=== PATIENT | male | born 1950 | race Caucasian/White ===

== ENCOUNTER 2022-03-16 10:30 | Emergency (ER) | payer MEDICARE, BC, SELFPAY ==
[2022-03-16 10:34] VITALS: BP 132/68; PULSE 70; RESP 18; TEMP 36.1; O2SAT 99; BMI 28.1
--- NOTE | 2022-03-16 11:34 | CRLHL7_ITS ---
For Patients: As a result of the Cures Act, medical imaging exams and procedure reports are released immediately into your electronic medical record. You may view this report before your referring provider. If you have questions, please contact your health care provider. INDICATION: Back pain TECHNIQUE: 2-view lumbar spine. COMPARISON: none FINDINGS: Degenerative facet arthropathy lower lumbar spine with mild degenerative retrolisthesis of L3 on L4. No compression fracture. Multilevel discogenic spurring. Vascular calcifications with arterial stents. IMPRESSION: No acute fracture. Degenerative disc disease and facet degeneration at multiple levels. Dictated by Rudy Birmingham MD @ 03/16/2022 1:39:15 PM (Electronically Signed)
--- NOTE | 2022-03-16 11:34 | ED.GENADULT ---
HPI - General Adult General Chief complaint: Back Injury/Pain Stated complaint: Hip and back pain Time Seen by Provider: 03/16/22 11:04 Source: patient Mode of arrival: ambulatory Limitations: no limitations History of Present Illness HPI narrative: 72-year-old male coming in today complaining about back pain. Pain is located in the right lower back radiates around the hip and down the front of the leg to the knee. Pain does not go into the groin. He denies any knee pain. He states the pain is been present for about a week. He denies any strenuous physical activity that brought it on. He can not remember exactly what he was doing when the pain started. He states that last night the pain got significantly worse and is almost unbearable this morning. He denies any urinary difficulty or dysuria. He denies any fevers or chills. He denies pain in other joints. He denies swelling or changes in his skin in the area. He denies neurologic deficits. Patient does take oxycodone, , duloxetine daily for pain and neuropathy. Did take a dose this morning, the oxycodone has not been helping his pain. Nothing really seems to make it better or worse. Sometimes he will be sitting and be comfortable and then the pain comes and he has to walk around. This may relieve the pain temporarily however after walking around for some time then the pain returns. Related Data Home Medications Medication Instructions Recorded Confirmed amlodipine 10 mg tablet 10 mg PO QDAY 11/18/21 01/14/22 aspirin 325 mg tablet 325 mg PO QDAY 11/18/21 01/14/22 atorvastatin 20 mg tablet 20 mg PO .hs 11/18/21 01/14/22 nortriptyline 50 mg capsule 100 mg PO QDAY 11/18/21 01/14/22 omeprazole 40 mg capsule,delayed 40 mg PO QDAY 11/18/21 01/14/22 release sodium bicarbonate 650 mg tablet 650 mg PO BID 11/18/21 01/14/22 duloxetine 60 mg capsule,delayed 60 mg PO DAILY 12/09/21 01/14/22 release ferrous gluconate 225 mg (27 mg 225 mg PO QDAY 12/09/21 01/14/22 iron) tablet (Fergon) lancing device with lancets kit 12/09/21 01/14/22 (Accu-Chek FastClix Lancing Device kit) carvedilol 25 mg tablet 37.5 mg PO DAILY 12/10/21 01/14/22 fluoxetine 60 mg tablet 90 mg PO QDAY 12/10/21 01/14/22 Previous Rx's Medication Instructions Recorded blood-glucose sensor (Dexcom G6 #3 ea 11/25/21 Sensor device) insulin aspart U-100 100 unit/mL 80 unit (0.8 mL) subcut 12/28/21 subcutaneous solution (Novolog USEASDIRECTD #90 mL U-100 Insulin aspart) doxepin 25 mg capsule 25 mg PO BID #60 caps 01/14/22 minocycline 100 mg capsule 100 mg PO BID #90 caps 01/14/22 pramipexole 1 mg tablet 1 mg PO .hs #30 tabs 01/14/22 lisinopril 40 mg tablet 40 mg PO QDAY #90 tabs 01/19/22 oxycodone 5 mg tablet 5 - 10 mg PO Q6H PRN pain #100 tabs 01/28/22 blood-glucose transmitter (Dexcom #1 ea 02/12/22 G6 Transmitter device) methylprednisolone 4 mg tablets in See Rx Instructions PO .COMPLEX 03/16/22 a dose pack (Medrol (Dayo)) #21 ea Allergies Allergy/AdvReac Type Severity Reaction Status Date / Time morphine Allergy Severe itching Verified 01/14/22 10:49 and swelling pregabalin Allergy Severe itching Verified 01/14/22 10:49 and swelling Eacmzpb-IMZ-HjL Reductase Allergy Unknown Verified 01/14/22 10:49 Inhibitor Review of Systems Status of ROS: Reports: 10 or more systems reviewed and unremarkable except as noted in History and below [facility] Medical History Abscess of skin Chronic pain Chronic pruritus Diabetic foot ulcer Diabetic gastroparesis (04/20/09) Diabetic neuropathy Erectile dysfunction (04/23/06) Gastroesophageal reflux disease Gout Hyperlipidemia Hypertension Major depressive disorder with single episode (09/18/07) Peripheral arterial disease Restless legs syndrome Spinal stenosis of lumbar region Stage 3 chronic kidney disease Transient ischemic attack (2009) Type 2 diabetes mellitus Vitamin D deficiency Surgical History History of amputation of left great toe (05/31/17) History of angioplasty of peripheral vessel (05/27/17) History of carpal tunnel release History of repair of right rotator cuff (2004) History of tonsillectomy Status post cataract extraction and insertion of intraocular lens (2007) Status post epidural steroid injection (07/06/18) Status post insertion of iliac artery stent Family History Sister Breast cancer, Onset Age: 70 Diabetes Brother Diabetes Stroke, Onset Age: 69 Heart disease, Onset Age: 69 Social History Narrative: -Siria, retired, 4 kids Former smoker No EtOH Smoking Status: Current every day smoker How often do you have a drink containing alcohol: never AUDIT-C Alcohol total score: 0 Non-prescribed substance use: denies use Exam Narrative: Exam Narrative: Well-nourished well-developed patient in no acute distress. Alert and oriented. Answers questions appropriately. Mood and affect are appropriate. Thoughts are goal oriented and rational. No tangential or magical thinking noted. Patient speaks in full sentences without needing to catch their breath. HEENT: Normocephalic atraumatic. Pupils are equally round reactive to light. Extraocular muscles are intact. Conjunctivae are moist without any icterus noted. Moist mucous membranes. Posterior pharynx is normal. Neck is soft without any lymphadenopathy or thyromegaly. No masses are appreciated. Lungs: Clear to auscultation bilaterally no wheezes rhonchi or rales are appreciated. Patient takes deep breaths without any discomfort. Abdomen: Soft and nontender nondistended with normal bowel sounds. No CVA tenderness. Extremities: Bilateral lower extremities are without edema. Normal DP and PT pulses. Back: Normal appearance. He has no tenderness to palpation over the thoracic or lumbar spine. He has tenderness over the right-sided paraspinal musculature. He has no neurologic deficits noted of the bilateral lower extremities. His gait is normal. Strength is 5/5 of the lower extremities. He has no footdrop noted. He has no pain over the lateral hip or the anterior thigh. Const: Vital Signs, click to edit/add: Vital Signs - 24 hr 03/16/22 10:34 03/16/22 12:56 Temperature 96.9 F L Pulse Rate [Pulse Oximeter] 70 68 Respiratory Rate 18 16 Blood Pressure [Ri ght Upper Arm] 132/68 155/75 H Pulse Oximetry 99 96 Oxygen Delivery Me thod Room Air Room Air Course Course Hospital Course: Lumbar spine x-ray, read by me, does not show any significant or acute findings. His lab work did show slightly elevated white blood cell count, anemia which is chronic, elevated creatinine which is chronic. Today his creatinine was slightly above his baseline. Urinalysis had 2+ protein but no signs of infection. Vital Signs Vital signs: Initial Vital Signs Temperature 96.9 F L 03/16/22 10:34 Temperature Source Temporal Artery Scan 03/16/22 10:34 Pulse Rate 70 03/16/22 10:34 Respiratory Rate 18 03/16/22 10:34 Blood Pressure 132/68 03/16/22 10:34 Blood Pressure Mean 89 03/16/22 10:34 Blood Pressure Position Supine 03/16/22 10:34 Pulse Oximetry 99 03/16/22 10:34 Oxygen Delivery Method 03/16/22 10:34 Vital Signs Temperature 96.9 F L 03/16/22 10:34 Pulse Rate 70 03/16/22 10:34 Respiratory Rate 18 03/16/22 10:34 Blood Pressure 132/68 03/16/22 10:34 Pulse Oximetry 99 03/16/22 10:34 Oxygen Delivery Method 03/16/22 10:34 Temperature 96.9 F L 03/16/22 10:34 Pulse Rate 68 03/16/22 12:56 Respiratory Rate 16 03/16/22 12:56 Blood Pressure 155/75 H 03/16/22 12:56 Pulse Oximetry 96 03/16/22 12:56 Oxygen Delivery Method 03/16/22 12:56 Medical Decision Making [facility] Narrative Medical decision making narrative: 72-year-old male complex medical history presenting with right-sided lumbar back pain that radiates down the anterior leg. At this point we are going to put the patient on a Medrol Dosepak. We discussed that I would not be giving him more narcotic pain medication at this time given the fact that is in to helping in many ways. 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 We discussed reasons to return to the ER. Patient was agreeable had no other questions. Medical Records Medical records reviewed: Yes I reviewed the patient's medical records Lab Data Lab results reviewed: Yes I reviewed the patient's lab results Labs: Lab Results 03/16/22 03/16/22 03/16/22 Range/Units 11:40 11:40 12:11 WBC 13.57 H (4.50-11.00) K/uL RBC 3.46 L (4.30-5.90) m/uL Hgb 10.9 L (13.5-17.5) gm/dL Hct 33.4 L (37.0-53.0) % MCV 97 (80-100) fL MCH 32 (26-34) pg MCHC 33 (32-36) gm/dL RDW Coeff of Amirah 14.2 (11.5-15.5) % Plt Count 259 (140-440) K/uL Neut % (Auto) 67.9 (42.0-72.0) % Lymph % (Auto) 15.1 L (20-44) % [place] % (Auto) 9.1 (0.0-11.0) % Eos % (Auto) 7.0 (0.0-7.0) % Baso % (Auto) 0.2 (0.0-3.0) % Neut # (Auto) 9.20 H (1.7-7.0) K/uL Lymph # (Auto) 2.00 (0.90-2.90) K/uL [place] # (Auto) 1.20 H (0.00-0.90) K/UL Eos # (Auto) 0.90 H (0.00-0.50) K/uL Baso # (Auto) 0.00 (0.00-0.30) K/uL Abs Immat Gran (auto) 0.10 (0.00-0.30) K/uL Sodium 139 (135-149) mmol/L Potassium 4.3 (3.6-5.1) mmol/L Chloride 105 (96-114) mmol/L Carbon Dioxide 22 (20-32) mmol/L BUN 59 H (7-30) mg/dL Creatinine 3.4 H (0.5-1.5) mg/dL Estimated Creat Clear 20.22 Estimated GFR 19 ml/min Glucose 71 (60-115) mg/dL Calcium 7.8 L (8.4-10.6) mg/dL Total Bilirubin 0.4 (0.1-1.5) mg/dL Direct Bilirubin 0.3 (0.0-0.5) mg/dL AST 24 (12-35) U/L ALT 20 (4-50) U/L Alkaline Phosphatase 92 (40-150) U/L C-Reactive Protein 1.1 H (0.5-1.0) mg/dL Total Protein 7.5 (6.0-8.3) g/dL Albumin 4.3 (3.3-5.0) g/dL Urine Color Yellow (Yellow) Urine Appearance Clear (Clear) Urine pH 5.5 (5.0-8.5) Ur Specific Opal 1.020 (1.000-1.030) Urine Protein 2+ A (Negative) Urine Glucose (UA) Negative (Negative) Urine Ketones Negative (Negative) Urine Blood Negative (Negative) Urine Nitrite Negative (Negative) Urine Bilirubin Negative (Negative) Urine Urobilinogen 0.2 (0.2-1.0) Ur Leukocyte Esterase Negative (Negative) Urine RBC 0-2 (0-2) Urine WBC 0-2 (0-5) Ur Squamous Epith Cells Few (None-Few) Urine Bacteria None (None) Imaging Data X-ray lumbar spine: Attestation: I have reviewed the pertinent imaging results. My impression: No acute findings, chronic changes present Discharge Plan Discharge Clinical Impression: Lumbar back pain with radiculopathy affecting lower extremity Patient Disposition: Home, Self-Care Condition: Stable Additional Instructions: Take steroids as instructed. Make sure to pay extra close attention this week to your blood glucose levels as steroids can make your glucose levels rise. Follow-up with your primary care as scheduled tomorrow. Return to the ER if you develop a fever, worsening pain, or any neurologic deficits. Prescriptions: New methylprednisolone [Medrol (Dayo)] 4 mg tablets,dose pack See Rx Instructions .ROUTE .COMPLEX Qty: 21 0RF Rx Instructions: orally per package directions No Action pramipexole 1 mg tablet 1 mg PO .hs Qty: 30 5RF minocycline 100 mg capsule 100 mg PO BID Qty: 90 1RF Rx Instructions: 1 BID x 10 days then 1 QD detention doxepin 25 mg capsule 25 mg PO BID Qty: 60 5RF Fergon 225 mg (27 mg iron) tablet 225 mg PO QDAY (DME) lancing device with lancets [Accu-Chek FastClix Lancing Dev] Kit See Rx Instructions .Route Rx Instructions: As directed duloxetine 60 mg capsule,delayed release(DR/EC) 60 mg PO DAILY atorvastatin 20 mg tablet 20 mg PO .hs nortriptyline 50 mg capsule 100 mg PO QDAY omeprazole 40 mg capsule,delayed release(DR/EC) 40 mg PO QDAY sodium bicarbonate 650 mg tablet 650 mg PO BID amlodipine 10 mg tablet 10 mg PO QDAY aspirin 325 mg tablet 325 mg PO QDAY (DME) Dexcom G6 Sensor Device See Rx Instructions .Route Qty: 3 2RF Rx Instructions: Change every 10 days carvedilol 25 mg tablet 37.5 mg PO DAILY Rx Instructions: must administer with a meal/food fluoxetine 60 mg tablet 90 mg PO QDAY insulin aspart U-100 [Novolog U-100 Insulin aspart] 100 unit/mL solution 80 unit subcut USEASDIRECTD Qty: 90 3RF Rx Instructions: 80 units daily per insulin pump lisinopril 40 mg tablet 40 mg PO QDAY Qty: 90 1RF oxycodone 5 mg tablet 5 - 10 mg PO Q6H PRN (Reason: pain) Qty: 100 0RF (DME) Dexcom G6 Transmitter Device See Rx Instructions .Route Qty: 1 5RF Rx Instructions: As directed Follow Up/Referrals: Rudy Riddle MD [Primary Care Provider] - Stand Alone Forms: MyHealth Info Instructions
[2022-03-16 11:49] LABS: Basophils Percent Auto 0.2 % (0.0-3.0); Hematocrit 33.4 % (37.0-53.0); Hemoglobin* 10.9 gm/dL (13.5-17.5); Lymphocytes Percent Auto 15.1 % (20-44); Mean Corpuscular HGB Conc 33 gm/dL (32-36); Mean Corpuscular Hemoglobin 32 pg (26-34); Mean Corpuscular Volume 97 fL (80-100); Monocytes Percent Auto 9.1 % (0.0-11.0); Neutrophils Percent Auto 67.9 % (42.0-72.0); Platelet Count* 259 K/uL (140-440); RDW Coefficient of Variation % 14.2 % (11.5-15.5); Red Blood Count 3.46 m/uL (4.30-5.90); White Blood Count* 13.57 K/uL (4.50-11.00)
[2022-03-16 11:58] LABS: Slide Review Reflex No
[2022-03-16 12:11] LABS: Appearance Urine Clear (Clear); Bilirubin Urine Negative (Negative); Blood Urine Negative (Negative); Color Urine Yellow (Yellow); Glucose Urine Negative (Negative); Ketones Urine Negative (Negative); Leukocyte Esterase Urine Negative (Negative); Nitrite Urine Negative (Negative); Protein Urine 2+ (Negative); Urobilinogen Urine 0.2 (0.2-1.0); pH Urine 5.5 (5.0-8.5)
--- OUTSIDE RECORDS SUMMARY | 2022-03-16 12:18 | XMS_ITS | Clinical Summary ---
:1950 Author Organization [facility] [employer] [facility] [place] [address] Care Team Providers Name Role Phone Casa Lucia MD Unavailable Unavailable Pcp, No Primary Care Provider Unavailable Allergies Active Allergy Reactions Severity Noted Date Comments Morphine Itching 02/04/2010 After 3 days of use Jrpshgu-Dtz-Avh Reductase Myalgia 02/13/2014 Inhibitors Medications Medication Sig Dispensed Refills Start Date End Date Status ASPIRIN 325 MG TAB QD 0 A ctive lancets Dispense item 550 Each 3 08/23/2014 Activ e covered by pt ins. 250.02 IDDM type II Tests 4 times/day. Reason: High A1c. History labile sugars, hypertension, poor control pen needle, diabetic Three times a day 300 Each 3 06/27/2015 Active (BD INSULIN PEN NEEDLE UF) 31 gauge x 5/16Indications: Type 2 diabetes mellitus without complication (HC) insulin lispro Inject 5-10 Units 5 pen 12 07/22/2015 Active (HUMALOG KWIKPEN) 100 subcutaneous 3 unit/mL inpn times daily before penIndications: Type 2 meals. diabetes mellitus with diabetic polyneuropathy (HC) ACCU-CHEK XIAO PLUS TESTS 4-6 TIMES 600 Each 3 09/10/2015 Active TEST STRP PER DAY stripIndications: Type 2 diabetes mellitus with diabetic polyneuropathy (HC) omeprazole (PRILOSEC) Take 1 capsule by 90 capsule 2 6 Active 20 mg Delayed-Release mouth once daily capsuleIndications: before a meal. Gastroesophageal reflux disease without esophagitis colchicine (COLCRYS, Take 1 tablet by 90 tablet 3 02/16/2016 Active COLCHICINE,) 0.6 mg mouth once daily. tabletIndications: Acute gout, unspecified cause, unspecified site insulin glargine Inject 30 Units 30 mL 5 02/16/2016 Active (LANTUS SOLOSTAR) 100 subcutaneous unit/mL (3 mL) before bedtime. solution for injectionIndications: Type 2 diabetes mellitus with neurological manifestations (HC) atorvastatin (LIPITOR) Take 20 mg by 0 10/16/2019 Active 20 mg tablet mouth at bedtime. cloNIDine HCL Take 0.1 mg by 0 10/17/2019 Active (CATAPRES) 0.1 mg mouth 2 times tablet daily. doxepin (SINEQUAN) 10 Take 10 mg by 0 10/01/2019 Active mg capsule mouth at bedtime. DULoxetine (CYMBALTA) Take 60 mg by 0 10/22/2019 Active 60 mg Delayed-release mouth once daily. capsule VITAMIN D2 1,250 mcg Take 50,000 Units 0 09/27/2019 Active (50,000 unit) capsule by mouth once weekly. lisinopriL (PRINIVIL; Take 40 mg by 0 10/22/2019 Active ZESTRIL) 40 mg tablet mouth once daily. nortriptyline 50 mg TAKE TWO CAPSULES 0 10/16/2019 Active capsule BY MOUTH AT BEDTIME pramipexole (MIRAPEX) Take 0.5 mg by 0 10/17/2019 Active 0.5 mg tablet mouth at bedtime. cyclobenzaprine TAKE ONE TABLET BY 0 12/13/2019 Active (FLEXERIL) 10 mg MOUTH TWICE A DAY tablet NEEDED FOR SPASM Active Problems Problem Noted Date Controlled substance agreement terminated 11/26/2016 Overview: Patient termed from the clinic 04/30 Hypertension 08/31/2015 Hyperlipidemia 08/31/2015 Type 2 diabetes mellitus with diabetic polyneuropathy 02/25/2015 Restless legs syndrome (RLS) 02/02/2012 Issue of repeat prescriptions 12/16/2010 Overview: Diabetic Neuropathy - taking Oxycontin a nd Percocet TIA (transient ischemic attack) 03/01/2010 CKD (chronic kidney disease) stage 3, GFR 30-59 ml/min 08/17/2009 Diabetic gastroparesis 04/20/2009 GERD (gastroesophageal reflux disease) 04/20/2009 Major depressive disorder, single episode, in partial or unspecified 09/18/2007 remission Diabetic Neuropathy 04/23/2006 Proteinuria 04/23/2006 Erectile Dysfunction 04/23/2006 GOUT 04/23/2006 Resolved Problems Problem Noted Date Resolved Date Controlled substance agreement signed 5-27-14 ERX 06/21/2014 11/26/2016 Diabetic Neuropathy 01/25/2011 05/27/2011 Diabetic gastroparesis 01/21/2010 01/22/2010 Diabetic gastroparesis 01/21/2010 05/27/2011 Unspecified essential hypertension 04/23/200608/30 Other and unspecified hyperlipidemia 04/23/2006 Depressive disorder, not elsewhere classified 04/23/2006 09/18/2007 Type 2 Diabetes A1C< 8 05/16/1990 02/25/2015 Immunizations Name Administration Dates Next Due Influenza, IIV3 (Age >=3 years) 05/10/2013, 02/02/2012, 05/16, 02/13/2010, 03/13/2008, 03/03/2007, 04/04/2006 Influenza, IIV4 02/16/2016, 03/17/2015, 02/13/2014 Pneumococcal Poly,23-Valent 02/13/2010 (Pneumovax) Td (Age >=7 Years) 05/16/1996 Td, Preservative Free (age >= 7 03/24/2007 Years) Zoster (Zostavax-ZVL, live) 02/02/2012 Family History Medical History Relation Name Comments Diabetes Brother Diabetes Father Thyroid Disease Mother hypothyroidism Thyroid Disease Sister 1 hypothyroidism Diabetes Sister 2 Relation Name Status Comments Brother Father (Age 74) Mother Sister 1 Sister 2 Social History Tobacco Use Types Packs/Day Years Used Date Current Every Day Smoker Cigarettes 0.5 Smokeless Tobacco: Never Used Tobacco Cessation: Ready to Quit: No; Co unseling Given: Yes Comments: started again after hospitiliz ation 10/2019 Alcohol Use Standard Drinks/Week Comments No 0 (1 standard drink = 0.6 oz pure alcoho l) Sex Assigned at Date Recorded Not on file Obstetrics History Last Filed Vital Signs Vital Sign Reading Time Taken Comments Blood Pressure 120/50 03/17/2021 10:15 AM CDT manual c uff Pulse 70 03/17/2021 10:15 AM CDT Temperature 36.7 ??C (98.1 ??F) 05/07/2020 8:29 PM RECRUITING ADMINISTRATOR Respiratory Rate 20 05/08/2020 12:26 AM RECRUITING ADMINISTRATOR Oxygen Saturation 96% 03/17/2021 10:15 AM CDT Inhaled Oxygen Concentration - - Weight 83.9 kg (185 lb) 03/17/2021 10:15 AM CDT Height 175.3 cm (5' 9.02) 05/07/2020 8:29 PM RECRUITING ADMINISTRATOR Body Mass Index 27.31 05/07/2020 8:29 PM RECRUITING ADMINISTRATOR Plan of Treatment Health Maintenance Due Date Last Done Comments Tdap 01/30/1963 Hepatitis C screening for age 0901/30/1970 18-79 AAA screening age 55-77 01/30/2007 Pneumococcal series for age 65+ (2 02/13/2011 02/13/2010 - PCV) Zoster (shingles) series for age 1103/29/2012 02/02/2012 50+ (2 of 3) Colonoscopy through age 75 02/05/2016 02/04/2006 (Completed outside of Causes) Medicare Wellness for age 65+ 01/30/2017 BMI (ht and wt on same day) for 02/15/2017 02/16/2016, 12/2015 age 18+ Depression screening for age 12+ 02/23/2017 02/24/2016, 07/2015, 08/19/2015, Additional history exists Tetanus booster 03/24/2017 03/24/2007, 05/16/1996 COVID-19 vaccine series (3 - 10/04/2020 08/09/2020, 021 Booster for Pfizer series) Lipids for age 45-75 02/15/2021 02/16/2016, 09/10/2014, 10/09/2013, Additional history exists Influenza for age 65+ 01/14/2022 02/16/2016, 03/17/2015, 02/13/2014, Additional history exists Goals Goal Patient Goal Associated Recent Patient-Stated? Author Type Problems Progress BLOOD PRESSURE Blood Pressure No Fanta re, - MAINTAINS BP Rudy less than MD Venkata 140/90 Results Not on filefrom Last 3 Months Insurance Payer Benefit Plan / Subscriber ID Effective Phone Address T ype Group Dates WC WORKERS [id number] [id number] Effective for [phone] [id number] COMP COMP all dates [address] [place] [address] [id number] [id number] 2008-Pres [phone] [address] COMP COMP ent [address] [place] [address] MEDICARE PART MEDICARE PART [id number] 2019-Prese ATT N: CLAIMS B - HB USE B HB ONLY nt [address] [place] [address] [employer] [place] [employer] [id number] 2019-Prese [address] [address] [place], [place] [id number] [employer] Comp Self 1950 [id number] [phone] Oracio HERNANDEZ (Work) [id number] [employer] Self 1950 [id number] [phone] Oracio HERNANDEZ (Work) [id number] Care 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 Casa Lucia MD Ophthalmology Ophthalmology Surgery 12/22/[address] [place] [address]
--- OUTSIDE RECORDS SUMMARY | 2022-03-16 12:19 | XMS_ITS | Encounter Summary ---
:1950 Author Organization [facility] Address [address] [place] [address] Care Team Providers Name Role Phone Elsewhere, Pcp Primary Care Provider Unavailable Reason for Referral Outpatient (Routine) - Closed Specialty Diagnoses / Procedures Referred By Contact Refer red To Contact Diagnoses Follow Up Examination Status Post Surgery Jayjay Pak P.A.-C. [facility] Procedures Lower Extremity Arterial (MIMI) - Exercise (Claudication) [address] [place], [place] [address] Referral ID Status Reason Start Date Expiration Date Visits Requ ested Visits Authorized [id number] Closed 10/23/2021 10/23/2022 1 1 Reason for Visit Outpatient (Routine) - Closed Specialty Diagnoses / Procedures Referred By Contact Refer red To Contact Diagnoses Follow Up Examination Status Post Surgery Jayjay Pak P.A.-C. [facility] Procedures Lower Extremity Arterial (MIMI) - Exercise (Claudication) [address] [place], [place] [address] Referral ID Status Reason Start Date Expiration Date Visits Requ ested Visits Authorized [id number] Closed 10/23/2021 10/23/2022 1 1 Encounter Details Date Type Department Care Team Description 02/23/2022 Hospital Encounter Department of Jayjay Pak Arterial Disease (HCC) (Primary Dx); Vascular Medicine in [place] [facility] Follow Up Examination Status Post Surger y [place], [place] [address] [facility] [address] [place] [phone] Social History Tobacco Use Types Packs/Day Years Used Date Smoking Tobacco: Every Day Cigarettes 1 35 S tarted: 05/16/1983 Smokeless Tobacco: Never Comments: has tried to quit many times, wishes no intervention at this time Alcohol Use Standard Drinks/Week Comments Yes 0 (1 standard drink = 0.6 oz pure alcoho l) yearly Alcohol Habits Answer Date Recorded How often do you have a drink containing alcohol? Monthly or less 03/25/2021 How many drinks containing alcohol do you have on a 1 or 2 03/25/2021 typical day when you are drinking? How often do you have six or more drinks on one Never 03/25/2021 occasion? Social Isolation Answer Date Recorded In a typical week, how many times do you talk on the phone T wice a week 03/25/2021 with family, friends, or neighbors? How often do you get together with friends or relatives? Onc e a week 03/25/2021 How often do you attend christian or episcopalian services? Never 03/25/2021 Do you belong to any clubs or organizations such as christian N o 03/25/2021 groups, unions, fraternal or athletic groups, or school groups? How often do you attend meetings of the clubs or Never 03/25/2021 organizations you belong to? Are you now , , , , never Mar ried 03/25/2021 or living with a partner? Physical Activity Answer Date Recorded On average, how many days per week do you engage in moderate to 0 days 03/25/2021 strenuous exercise (like walking fast, running, jogging, dancing, swimming, biking, or other activities that cause a light or heavy sweat)? On average, how many minutes do you engage in exercise at th is 0 min 03/25/2021 level? Stress Answer Date Recorded Do you feel stress - tense, restless, nervous, or anxious, N ot at all 03/25/2021 or unable to sleep at night because your mind is troubled all the time - these days? Financial Resource Strain Answer Date Recorded How hard is it for you to pay for the very basics like Somew hat hard 03/25/2021 food, housing, medical care, and heating? Food Insecurity Answer Date Recorded Within the past 12 months, you worried that your food would Never true 03/25/2021 run out before you got money to buy more. Within the past 12 months, the food you bought just didn't N ever true 03/25/2021 last and you didn't have money to get more. Transportation Needs Answer Date Recorded In the past 12 months, has lack of transportation kept you f rom No 03/25/2021 medical appointments or from getting medications? In the past 12 months, has lack of transportation kept you f rom No 03/25/2021 meetings, work, or getting things needed for daily living? Housing Stability Answer Date Recorded In the last 12 months, was there a time when you were not ab le No 03/25/2021 to pay the mortgage or rent on time? In the last 12 months, how many places have you lived? 1 03/25/2021 In the last 12 months, was there a time when you did not hav e a No 03/25/[address] or slept in a skilled nursing (including now)? Education Answer Date Recorded What is the highest level of school you have Some college, n o degree 03/24/2021 completed or the highest degree you have received? 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 8:13 PM [employer] documented as of this encounter Medications at Time of Discharge Medication Sig Dispensed Refills Start Date End Date acetaminophen (TYLENOL) Take 2 tablets 0 03/25/20 21 500 mg tablet (1,000 mg total) by mouth every 8 (eight) hours as needed (neuropathy). amLODIPine (NORVASC) 5 Take 1 tablet (5 mg 90 tablet 3 05/16 mg tablet total) by mouth daily. aspirin [address] tablet Take 325 mg by mouth 0 daily. Take in evening atorvastatin (LIPITOR) Take 1 tablet (20 mg 90 tablet 3 03/2020 20 mg tablet total) by mouth at bedtime. blood sugar diagnostic TEST 6 TIMES DAILY 0 06/16 (Accu-Chek Guide test DIRECTED strips) strips calcium citrate Take 4 tablets (800 300 tablet 3 06/16/2021 (CALCITRATE) 950 mg (200 mg of calcium total) mg calcium) tablet by mouth at bedtime. Increased to 4 pills at bedtime carvediloL (COREG) 25 mg Take 2 tablets (50 0 02/2021 tablet mg total) by mouth 2 (two) times a day with meals. colchicine (COLCRYS) 0.6 Take 1 tablet (0.6 0 mg tablet mg total) by mouth as directed. For gout flare, take one tab in the evenings until symptoms go away (usually 2-3 days) doxepin (SINEquan) 10 mg TAKE ONE CAPSULE BY 90 capsule 3 capsule MOUTH EVERY DAY AT BEDTIME DULoxetine (CYMBALTA) 60 Take 60 mg by mouth [address] capsule at bedtime. ferrous sulfate 325 mg Take 27 mg by mouth 0 (65 mg iron) tablet daily. States taking 27 mg daily furosemide (LASIX) 40 mg Take 1.5 tablets (60 135 tablet 3 0 09/28/2021 09/28/2022 tablet mg total) by mouth daily. insulin aspart U-100 Inject 8-15 Units 0 03/25/20 21 (NovoLOG Flexpen U-100 under the skin 3 Insulin) 100 unit/mL (3 (three) times a day mL) injection with meals. (sometimes takes more than 3 times per day depending on what he is eating and activity). insulin glargine Inject 35 Units 15 mL 0 03/25/2021 (Basaglar KwikPen U-100 under the skin every Insulin) 100 unit/mL (3 evening. mL) injection lancets 6 each daily. 600 each 3 03/07/2019 lisinopriL Take 0.5 tablets (20 0 03/25/2021 (PRINIVIL,ZESTRIL) 40 mg mg total) by mouth tablet daily. Patient reports it was decreased by primary physician about 04/2020 per patient report. minocycline TAKE ONE CAPSULE BY 0 01/14/2022 (MINOCIN,DYNACIN) 100 mg MOUTH TWICE A DAY capsule FOR 10 DAYS AND THEN TAKE ONE CAPSULE BY MOUTH EVERY DAY INTERMEDIATE nortriptyline (PAMELOR) Take 100 mg by mouth 5 50 mg capsule at bedtime. omeprazole (PriLOSEC) 40 Take 40 mg by mouth [address] capsule every evening. oxyCODONE (ROXICODONE) 5 Take 5-10 mg by 0 2021 mg immediate release mouth every 6 (six) tablet hours as needed. for pain pen needle, diabetic 31 Inject 1 Injection 400 each 3 04/17 gauge x 5/16 needle under the skin daily. Inject 1 injection under the skin 4 times daily pramipexole (MIRAPEX) Take 0.5 mg by mouth 0 0.5 mg tablet at bedtime. sodium bicarbonate 650 TAKE ONE TABLET BY 180 tablet 3 01/22 mg tablet MOUTH TWICE A DAY documented as of this encounter Plan of Treatment Not on filedocumented as of this encounter Procedures Procedure Name Priority Date/Time Associated Diagnosis Comme nts LOWER EXTREMITY Routine 02/23/2022 11:23 AM Follow Up Resul ts for this ARTERIAL (MIMI) - CDT Examination Status proce maeve are in EXERCISE Post Surgery the results (CLAUDICATION) section. documented in this encounter Results Lower Extremity Arterial (MIMI) - Exercise (Claudication) (02/23/2022 11:23 AM CDT) Anatomical Region Laterality Modality Other Specimen (Source) Anatomical Collection Method Collection Time Re ceived Time Location / / Volume Laterality 02/23/2022 10:23 AM CDT Narrative 02/23/2022 10:23 AM CDT Right: Doppler Waveforms: ? Normal at all levels evaluated. ?? Resting Index: ? MIMI (PT)- ??0 .91 ?MIMI (DP)- ??0.88 ?TBI - ??0.63 ?? Post-exercise MIMI: ? 0.41 ??Post-Exercise CF Doppler: ? Abnormal. ?? Left: Doppler Waveforms: ? Normal at all levels evaluated. ?? Resting Index: ? MIMI (PT)- ??0.85 ?MIMI (DP)- ??0.82 ?TBI- ??0.54 ?? Post- exercise MIMI: ? 0.43 ??Post-Exercise CF Doppler: ? Abnormal. ?? General: Patient exercised at reduced sp eed of 1.0 mph (10% grade) for 5 minutes (142 yards). ?? Standard protocol: ??2.0 mph (10% grade) for 5 minutes (283 yards). ??Onset of symptoms at 0'59 (25 yard s). ??Exercise terminated at completion of protocol. ?? Conclusions: Bilateral mild-moderate aor toiliac occlusive disease. EKG- negative for cardiac ischemia with exercise. Note- hypertensive response following low- level exercise. ??These results are similar to those noted on the study of 02/06/2021. ?? Procedure Note Edgar Yarbrough M.D. - 02/23/2022Formatti ng of this note might be different from the original. Right: Doppler Waveforms: Normal at all levels evaluated. Resting Index: MIMI (PT)- 0.91 MIMI (DP)- 0.88 TBI- 0.63 Post-exercise MIMI: 0.41 Post-Exercise CF Doppler: Abnormal. Left: Doppler Waveforms: Normal at all l evels evaluated. Resting Index: MIMI (PT)- 0.85 MIMI (DP)- 0.82 TBI- 0.54 Post-exercise MIMI: 0.43 Post-Exercise CF Doppler: Abnormal. General: Patient exercised at reduced sp eed of 1.0 mph (10% grade) for 5 minutes (142 yards). Standard protocol: 2.0 mph (10% grade) for 5 minutes (283 yards). Onset of symptoms at 0'59 (25 yards). Exercise terminated at completion of protocol. Conclusions: Bilateral mild-moderate aor toiliac occlusive disease. EKG- negative for cardiac ischemia with exercise. Note- hypertensive response following low- level exercise. These results are similar to those noted on the study of 02/06/2021. Jayjay Pak P.A.-C. [facility] PROCEDURES documented in this encounter Visit Diagnoses Diagnosis Peripheral Arterial Disease (HCC) - Prim dat Follow Up Examination Status Post Surger y documented in this encounter Additional Health Concerns Assessment Noted Time PHQ-9 Depression Total Score: 3 01/03/2018 10:38 AM CD T documented as of this encounter Care Teams Director Of Business Services Relationship Specialty Start Date End Date Elsewhere, Pcp PCP - General Family Medicine 01/29/20 documented as of this encounter
--- OUTSIDE RECORDS SUMMARY | 2022-03-16 12:19 | XMS_ITS | Encounter Summary ---
:1950 Author Organization [facility] Address [address] [place] [address] Care Team Providers Name Role Phone Elsewhere, Pcp Primary Care Provider Unavailable Reason for Referral Outpatient (Routine) - Authorized Specialty Diagnoses / Procedures Referred By Contact Refer red To Contact Diagnoses Follow Up Examination Status Post Surgery Peripheral Arterial Disease (HCC) Jayjay Pak P.A.-C. [facility] Procedures US Aorta Iliac Arteries Bilateral with Doppler [address] [place] [address] Referral ID Status Reason Start Date Expiration Date Visits V isits Requested Authorized [id number] Authorized 02/23/2022 02/23/2023 1 1 Outpatient (Routine) - Authorized Specialty Diagnoses / Procedures Referred By Contact Refer red To Contact Diagnoses Follow Up Examination Status Post Surgery Peripheral Arterial Disease (HCC) Jayjay Pak P.A.-C. [facility] Procedures US Lower Extremity Artery Graft Bilateral [address] [place] [address] Referral ID Status Reason Start Date Expiration Date Visits V isits Requested Authorized [id number] Authorized 02/23/2022 02/23/2023 1 1 Outpatient (Routine) - Authorized Specialty Diagnoses / Procedures Referred By Contact Refer red To Contact Vascular Medicine [place], Jayjay Jackson Escobar P.A.-C. [address] [place], [place] [address] Referral ID Status Reason Start Date Expiration Date Visits V isits Requested Authorized [id number] Authorized 02/23/2022 02/22/2025 1 1 Outpatient (Routine) - Authorized Specialty Diagnoses / Procedures Referred By Contact Refer red To Contact Diagnoses Follow Up Examination Status Post Surgery Peripheral Arterial Disease (HCC) Jayjay Pak P.A.-C. [facility] Procedures Lower Extremity Arterial (MIMI) - Exercise (Claudication) [address] [place], [place] [address] Referral ID Status Reason Start Date Expiration Date Visits V isits Requested Authorized [id number] Authorized 02/23/2022 02/23/2023 1 1 Outpatient (Routine) - Authorized Specialty Diagnoses / Procedures Referred By Contact Refer red To Contact Diagnoses Follow Up Examination Status Post Surgery Peripheral Arterial Disease (HCC) Jayjay Pak P.A.-C. [facility] Procedures ECG 12 Lead [address] [place] [phone] Referral ID Status Reason Start Date Expiration Date Visits V isits Requested Authorized [id number] Authorized 02/23/2022 02/23/2023 1 1 Reason for Visit Outpatient (Routine) - Closed Specialty Diagnoses / Procedures Referred By Contact Refer red To Contact Vascular Medicine Jayjay Pak [place] [facility] P.A.-C. [address] [place], [place] [address] Referral ID Status Reason Start Date Expiration Date Visits Requ ested Visits Authorized [id number] Closed 10/23/2021 10/23/2022 1 1 Encounter Details Date Type Department Care Team Description 02/23/2022 Office Visit Department of Vascular Jayjay Pak low Up Examination Status Post Surgery (Primary Dx); Medicine in [place], A, PFeiA.-C . Peripheral Arterial Disease (HCC) [place] [address] [facility] [address] [place] [phone] Social History Tobacco Use Types Packs/Day Years [...] week 03/25/2021 How often do you attend pentecostal or hindu services? Never 03/25/2021 Do you belong to any clubs or organizations such as pentecostal N o 03/25/2021 groups, unions, fraternal or [...] minutes do you engage in exercise at is 0 min 03/25/2021 level? Stress Answer [...] place to sleep or slept in a mcc (including now)? Education Answer Date Recorded What is the highest level of school you have Some college, n o degree 03/24/2021 completed or the highest degree you have received? 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 8:13 PM [employer] documented as of this encounter Last Filed Vital Signs Vital Sign Reading Time Taken Comments Blood Pressure 198/73 02/23/2022 3:01 PM CDT Pulse 80 02/23/2022 3:01 PM CDT Temperature - - Respiratory Rate - - Oxygen Saturation - - Inhaled Oxygen Concentration - - Weight 84.8 kg (186 lb 15.2 oz) 02/23/2022 3:00 PM CDT Height 175 cm (5' 8.9) 02/23/2022 3:00 PM CDT Body Mass Index 27.69 02/23/2022 3:00 PM CDT documented in this encounter Progress Notes Jayjay Pak P.A.-C. - 02/23/2022 2:30 PM CDT SUBJECTIVE CHIEF COMPLAINT / REASON FOR VISIT Stenting HISTORY OF PRESENT ILLNESS Follow Up Examination Status Post Surgery Peripheral Arterial Disease (HCC) Mr. Walton is a 72 y.o. male that I am seeing today for follow-up of his stenting. His Siria is with today. It was nice to see them again. The patient has had multiple interventions for critical limb ischemia which includes catheterizationleft SFA third order vessel with left lower extremity angiogram on March 31, 2017, left common femoral endarterectomy and superficial femoral artery stenting on April 04, 2017, left lower extremity angiogram with angioplasty May 27, 2017, right lower extremity angiogram with right superficial femoral artery stenting August 31, 2017, left pelvic angiogram and left lower extremity angiogram with angioplasty April 18, 2018, and abdominal aortogram and pelvic angiogram a left external iliac artery stenting May 11, 2019. The patient reports that over the last 2 years his legs feel tired, hurt, and decreased strength when he is active and he can fall or at least have difficulty getting up if he kneels down. He can walk maybe a couple hundred feet at the most before having to stop. He has to stop for 5 or 10 minutes andthen can go shorter distance. It seems like his left calf bothers him more than his right but they both bother him. He has not had rest pain but is difficult to know for sure because he has restless leg syndrome. Patient does heal but does take a long time if he has a break in the skin. He did say in 2019 he had an infection in his foot which led to toe amputations and he was never able to do physical therapy because of COVID restrictions. He is trying to be more active and is actually using a treadmill now. He continues to smoke but has cut down. Patient's history includes TIA in 2009 without recurrence, asymptomatic CAD with stress echo showingmyocardia ischemia, diabetes, bilateral carotid bruits without evidence of stenosis in 2017, CKD with possibility of dialysis, hypertension, hyperlipidemia. Patient denies chest pain or significant dyspnea. The patient denies TIA or CVA like symptoms. Patient denies fever, chills, or other signs of infection or illness. The following portions of the patient's history were reviewed and updated as appropriate: allergies,current medications, family history, medical history, social history, surgical history, psychiatric history, substance abuse history, problem list, labs, diagnostic testing. I reviewed the pertinent clinical notes in the electronic health record. REVIEW OF SYSTEMS Systems were reviewed. Pertinent positives and pertinent negatives are documented in the history of present illness. OBJECTIVE VITALS BP (!) 198/73 (BP Location: Right arm, Patient Position: Sitting) Pulse 80 Ht 175 cm Wt 84.8 kg BMI 27.69 kg/m?? Body mass index is 27.69 kg/m??. PHYSICAL EXAMINATION General: In no acute distress Vessels: (Right/Left): Posterior tibial 3+/3+. Extremities: No edema. Psychiatric: Pleasant. DIAGNOSTIC REVIEW All labs and diagnostic studies were reviewed. Vascular lab shows mild to moderate disease bilaterally and findings are similar to last year. Resting ABIs are roughly 0.8 to 0.9 but post exercise ABIs have decreased and now are roughly 0.4. Patienthad symptoms starting at 59 seconds but did complete the 5 minutes. U/S: 1. Patent right common iliac artery stent with elevated velocities distally consistent with a stenosis. This may be mildly progressed from the 2019 exam. Elevated velocities in the right external and internal iliac arteries may also be due to stenoses. 2. Patent left common and external iliac artery stents with elevated velocities within both stents proximally consistent with stenoses. These are likely stable from the prior exam. U/S: 1. Patent bilateral superficial femoral artery stents without significant stenosis. 2. 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 ASSESSMENT / PLAN #1 Follow Up Examination Status Post Surgery #2 Peripheral Arterial Disease (HCC) The patient's symptoms are stable as are his areas of stenosis and stents. He should continue to be active and we can see back in one year. All questions answered. Total time spent with patient care: 25 minutes. Jayjay Pak P.A.-C. documented in this encounter Plan of Treatment Scheduled Orders Name Type Priority Associated Order Schedule Diagnoses ECG 12 Lead ECG Routine Follow Up Expected: Examination Status 3 Post Surgery (Approximate), Peripheral Expires: Arterial Disease 05/26/2023 (HCC) Lower Extremity Vascular Routine Follow Up Expected: Arterial (MIMI) - Ultrasound Examination Status 02/23 Exercise Post Surgery (Approximate), (Claudication) Peripheral Expires: Arterial Disease 05/26/2023 (HCC) US Lower Imaging RAD - Routine Follow Up Expected: Extremity Artery (most inpatients Examination Status 1 Graft Bilateral and all Post Surgery (Approximate), outpatients) Peripheral Expires: Arterial Disease 02/24/2024 ([facility]) US Aorta Iliac Imaging RAD - Routine Follow Up Expected: Arteries (most inpatients Examination Status 02/23 Bilateral with and all Post Surgery (Approximate), Doppler outpatients) Peripheral Expires: Arterial Disease 02/24/2024 ([facility]) Scheduled Referrals Name Type Priority Associated Diagnoses Order S [facility] Vascular Medicine Outpatient Referral Routine Exp ected: office visit 02/23/2023 (clinic) Vascular (Approxima te), Surgery Referral Expires: 05/26/2023 documented as of this encounter Visit Diagnoses Diagnosis Follow Up Examination Status Post Surger y - Primary Peripheral Arterial Disease (HCC) documented in this encounter Additional Health Concerns Assessment Noted Time PHQ-9 Depression Total Score: 3 01/03/2018 10:38 AM CD T documented as of this encounter Care Teams Environmental Health Physician Relationship Specialty Start Date End Date Elsewhere, Pcp PCP - General Family Medicine 01/29/20 documented as of this encounter
--- OUTSIDE RECORDS SUMMARY | 2022-03-16 12:19 | XMS_ITS | Encounter Summary ---
:1950 Author Organization [facility] Address [address] [place] [address] Care Team Providers Name Role Phone Elsewhere, Pcp Primary Care Provider Unavailable Encounter Details Date Type Department Care Team Description 09/24/2021 Hospital Encounter Department of [facility] [employer] [facility] Laboratory Medicine Hui Reddy APRN, Chroni c Kidney in [place], C.N.P., D.N.P. Disease Stag e 1 To [address] [place] [id number] Social History Tobacco Use Types Packs/Day Years Used Date Smoking Tobacco: Every Day Cigarettes 1 35 S tarted: 05/16/1983 Smokeless Tobacco: Never Comments: patient plans to quit in the n ext 30 days Alcohol Use Standard Drinks/Week Comments Yes 0 [...] week 03/25/2021 How often do you attend anglican or sabianist services? Never 03/25/2021 Do you belong to any clubs or organizations such as anglican N o 03/25/2021 groups, unions, fraternal or [...] place to sleep or slept in a assisted (including now)? Education Answer Date Recorded What is the highest level of school you have Some college, n o degree 03/24/2021 completed or the highest degree you have received? 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 States taking 27 mg daily insulin aspart U-100 Inject 8-15 Units 0 [...] primary physician about 04/2020 per patient report. nortriptyline (PAMELOR) Take 100 mg by mouth [...] mouth 0 0.5 mg tablet at bedtime. furosemide (LASIX) 20 mg Take 2 tablets (40 90 tablet 3 09/28/2021 tablet mg total) by mouth daily. oxyCODONE (ROXICODONE) Take 10 mg by mouth 0 09/28/2021 10 mg IR tablet every 4 (four) hours as needed for pain. On a typical day takes 3 tablets in 24 hours sodium bicarbonate 650 Take 1 tablet (650 180 tablet 3 02/0401/22/2022 mg tablet mg total) by mouth 2 (two) times a day. Vitamin D2 1,250 mcg Take 50,000 Units by 0 04/2502/23/2022 (50,000 unit) capsule mouth once a week. Sundays documented as of this encounter Plan of Treatment Not on filedocumented as of this encounter Procedures Procedure Name Priority Date/Time Associated Diagnosis Comme nts RENAL FUNCTION Routine 09/24/2021 8:59 AM Hypertension And Res ults for this PANEL, S CDT Chronic Kidney procedure are in Disease Stage 1 To 4 the res ults section. documented in this encounter Results (ABNORMAL) Renal Function Panel (09/24/2021 8:59 AM CDT) Analysis Performed At Patho logist Time Signature Potassium, P 4.3 3.6 - 5.2 09/24/2021 [facility] mmol/L 1:05 PM CDT Sodium, P 137 135 - 145 09/24/2021 [facility] mmol/L 1:05 PM CDT Chloride, P 104 98 - 107 09/24/2021 [facility] mmol/L 1:05 PM CDT Bicarbonate, P 21 (L) 22 - 29 09/24/2021 [facility] mmol/L 1:05 PM CDT Anion Gap, P 12 7 - 15 09/24/2021 [facility] 1:05 PM CDT BUN (Blood Urea 47 (H) 8 - 24 09/24/2021 [facility] Nitrogen), P mg/dL 1:05 PM CDT Creatinine 3.14 (H) 0.74 - 09/24/2021 [facility] 1.35 mg/dL 1:05 PM CDT eGFR-Black/Afri 22 (L) >=60 09/24/2021 [facility] can Macedonian mL/min/BSA 1:05 PM CDT Comment: ----ADDITIONAL INFORMATION---- Estimated GFR calculated using the 2009 CKD_EPI creatinine equation. eGFR Non-Black/ 19 (L) >=60 mL/min/BSA 09/24/2021 1:05 PM CDT [facility] Macedonian Comment: ----ADDITIONAL INFORMATION---- Estimated GFR calculated using the 2009 CKD_EPI creatinine equation. Calcium, Total, P 7.7 (L) 8.8 - 10.2 mg/dL 09/24/2021 1:05 PM CDT [facility] Glucose, P 235 (H) 70 - 140 mg/dL 09/24/2021 1:05 PM CDT O TERI Albumin, P 3.4 (L) 3.5 - 5.0 g/dL 09/24/2021 1:05 PM CDT O TERI Phosphorus (Inorganic), P 3.7 2.5 - 4.5 mg/dL 09/25/19 4:22 PM CDT [facility] Specimen Anatomical Collection Method Collection Time Receive d Time (Source) Location / / Volume Laterality Blood (Blood, 09/24/2021 8:59 AM 09/25/19 22 Venous) CDT 10:33 AM CDT Narrative [facility] - 09/24/2021 4:22 PM CDT Specimen Information: Specimen ID: [id number] Specimen Type: Blood Specimen Collection Start Date: 09/25/19 ??8:59 AM Specimen Received Date: 09/24/2021 10:33 AM Specimen ID: [id number] Specimen Type: Blood Specimen Collection Start Date: 09/25/19 ??8:59 AM Specimen Received Date: 09/24/2021 ??3:3 1 PM Hui Delgado APRN, C.N.P., D.N.P. LAB BLOOD AD D-ON Performing Organization Address City/State/ZIP Code Phon e Number [facility] [address] [place], [place] [id number] [place] [address] [place] [address] System in [place] [address] [place] [facility] [place], [place] [id number] [place] [address] documented in this encounter Visit Diagnoses Diagnosis Hypertension And Chronic Kidney Disease Stage 1 To 4 documented in this encounter Additional Health Concerns Assessment Noted Time PHQ-9 Depression Total Score: 3 01/03/2018 10:38 AM CD T documented as of this encounter Care Teams Green Energy Marketing Analyst Relationship Specialty Start Date End Date Elsewhere, Pcp PCP - General Family Medicine 01/29/20 documented as of this encounter
--- OUTSIDE RECORDS SUMMARY | 2022-03-16 12:19 | XMS_ITS | Encounter Summary ---
:1950 Author Organization [facility] Address [address] [place] [address] Care Team Providers Name Role Phone Elsewhere, Pcp Primary Care Provider Unavailable Reason for Visit Reason Comments Chronic Kidney Disease And hypertension Outpatient (Routine) - Closed Specialty Diagnoses / Procedures Referred By Contact Refer red To Contact Nephrology and Diagnoses Hypertension And [facility] Kid[facility] Disease Stage 1 To [facility] JULIÁN Reddy, C.N.P., D.N.P. [address] [place] [address] Referral ID Status Reason Start Date Expiration Date Visits Requ ested Visits Authorized [id number] Closed 09/11/2021 09/11/2022 1 1 Encounter Details Date Type Department Care Team Description 09/28/2021 Nurse Only Division of Nephrology [facility] JULIÁN Reddy, C.N.P., D.N.P. Chronic Kidney Disease and Hypertension in [facility] Abbey Oracio, R.NFei [address] [place] [phone] (And hypertension) [place], [place] [address] [place] [phone] Social History Tobacco Use Types Packs/Day Years [...] do you talk on the phone T lotus a week 03/25/2021 with family, friends, or neighbors? How often do you get together with friends or relatives? Onc e a week 03/25/2021 How often do you attend judaism or religion services? Never 03/25/2021 Do you belong to any clubs or organizations such as judaism N o 03/25/2021 groups, unions, fraternal or [...] place to sleep or slept in a fpc (including now)? Education Answer Date Recorded What is the highest level of school you have Some college, n o degree 03/24/2021 completed or the highest degree you have received? 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 - 09/28/2021 10:00 AM CDT Provider Name: Hui Delgado DNP Reason for Visit: Returning short-term patient Relevant History: hypertension, cardiac disease, kidney disease, diabetes and hyperlipidemia Patient has bilateral lower extremity edema. He said the swelling is worse in the afternoon and thenmuch better in the morning. Today his right leg has 2+ pitting in his ankle and jhaveri. The left leg has minimal swelling. Patient will occasionally wear compressions socks but they get uncomfortable by the afternoon and will take them off. He said by the afternoon he will have swelling up to his knees. Preferred arm use for BP: Either. Date last assessed: 09/28/2021 Home BP Monitor: Yes Date last assessed: 09/28/2021 Onesimo brought their OMRON home blood pressure monitoring device to the visit today for accuracy test. The patient's home device uses a upper arm cuff location. The right and left arm was used for measurement. The results were there was at least one difference of greater than 5 mmHg but less than or equal to 10 mmHg and the comparison was repeated. The result of the second comparison was that the difference found in one or more comparison(s) remained >5 mmHg but less than or equal to 10 mmHg and the device is considered slightly inaccurate but doesn't require replacement. The manual blood pressure readings taken during the test were as follows: BP Readings from Last 1 Encounters: 09/28/21 1032 159/75 09/28/21 1031 146/60 09/28/21 1028 126/74 09/28/21 1025 130/66 09/28/21 1024 132/68 Exercise: Yes active outside, bought a treadmill and is slowing working on building endurance Patient's weight is: Patient has gained weight by 20 pounds over the last year. Tobacco Use: Social History Tobacco Use Smoking Status Current Every Day Smoker ??? Packs/day: 1.00 ??? Years: 35.00 ??? Pack years: 35.00 ??? Types: Cigarettes ??? Start date: 05/16/1983 Smokeless Tobacco Never Used Tobacco Comment has tried to quit many times, wishes no intervention at this time Alcohol Use: Social History Substance and Sexual Activity Alcohol Use Yes Comment: yearly Dietary Assessment: does not add salt to food, does not add salt when cooking, limits processed foods, drinks 24 cups caffeine per day and drinks 2 bottles of water amount of fluids per day, trying to cut down on coffee and replace with more water. He eats two eggs daily and usually large portions of beef for supper, we talked about less protein intake Home blood pressure trends are 130s/70-80. Right arm reads 15-20 points higher than left arm. Patient will continue checking blood pressure on right arm and will check an occasional blood pressure on the left arm. Vitals: 09/28/21 1025 09/28/21 1028 09/28/21 1031 09/28/21 1032 BP: 130/66 126/74 146/60 159/75 BP Location: Left arm Right arm Right arm Patient Position: Sitting Sitting Sitting Cuff Size: Regular Regular Regular Pulse: Plan of Care: In-office blood pressures are: above goal. Dizziness/Lightheadedness: denies dizziness or lightheadedness. Recommendations given to: increase exercise, decrease intake of caffeine, increase intake of water, limit salt, monitor and record BP , keep a journal and reviewed proper home BP monitoring technique Recommend having home blood pressure monitor assessed for accuracy on an annual basis. Instructed patient to call Nephrology & Hypertension Nurses if blood pressure is greater than 130/80. Medications: Continue on current medications for now. Patient Contact Information: Preferred contact: online message documented in this encounter Plan of Treatment Not on filedocumented as of this encounter Visit Diagnoses Diagnosis Hypertension And Chronic Kidney Disease Stage 1 To 4 documented in this encounter Additional Health Concerns Assessment Noted Time PHQ-9 Depression Total Score: 3 01/03/2018 10:38 AM CD T documented as of this encounter Care Teams Internetworking Technician Relationship Specialty Start Date End Date Elsewhere, Pcp PCP - General Family Medicine 01/29/20 documented as of this encounter
--- OUTSIDE RECORDS SUMMARY | 2022-03-16 12:19 | XMS_ITS | Encounter Summary ---
:1950 Author Organization [facility] Address [address] [place] [address] Care Team Providers Name Role Phone Elsewhere, Pcp Primary Care Provider Unavailable Reason for Referral Outpatient (Routine) - Closed Specialty Diagnoses / Procedures Referred By Contact Refer red To Contact Diagnoses Follow Up Examination Status Post Surgery Jayjay Pak P.A.-C. [facility] Procedures US Lower Extremity Arteries Bilateral US Lower Extremity Artery Graft Bilateral [address] [place], [place] [phone] Referral ID Status Reason Start Date Expiration Date Visits Requ ested Visits Authorized [id number] Closed 10/23/2021 10/23/2022 1 1 Outpatient (Routine) - Closed Specialty Diagnoses / Procedures Referred By Contact Refer red To Contact Diagnoses Follow Up Examination Status Post Surgery Jayjay Pak P.A.-C. [facility] Procedures US Aorta Iliac Arteries Bilateral with Doppler [address] [place], [place] [phone] Referral ID Status Reason Start Date Expiration Date Visits Requ ested Visits Authorized [id number] Closed 10/23/2021 10/23/2022 1 1 Outpatient (Routine) - Closed Specialty Diagnoses / Procedures Referred By Contact Refer red To Contact Vascular Medicine Jayjay Pak, [facility] alan Ervin [address] [place], [place] [phone] Referral ID Status Reason Start Date Expiration Date Visits Requ ested Visits Authorized [id number] Closed 10/23/2021 10/23/2022 1 1 Outpatient (Routine) - Closed Specialty Diagnoses / Procedures Referred By Contact Refer red To Contact Diagnoses Follow Up Examination Status Post Surgery Jayjay Pak P.A.-C. [facility] Procedures Lower Extremity Arterial (MIMI) - Exercise (Claudication) [address] [place], [place] [phone] Referral ID Status Reason Start Date Expiration Date Visits Requ ested Visits Authorized [id number] Closed 10/23/2021 10/23/2022 1 1 Outpatient (Routine) - Closed Specialty Diagnoses / Procedures Referred By Contact Refer red To Contact Diagnoses Follow Up Examination Status Post Surgery Jayjay Pak P.A.-C. [facility] Procedures ECG 12 Lead [address] [place] [phone] Referral ID Status Reason Start Date Expiration Date Visits Requ ested Visits Authorized [id number] Closed 10/23/2021 10/23/2022 1 1 Encounter Details Date Type Department Care Team Description 10/23/2021 Orders Only Department of Vascular Jayjay Pak [facility] Elver Escobar Status Post Surgery [place] [address] [place] [address] (Primary Dx) [address] [place], [place] [phone] Social History Tobacco Use Types Packs/Day Years [...] week 03/25/2021 How often do you attend methodist or rastafarian services? Never 03/25/2021 Do you belong to any clubs or organizations such as methodist N o 03/25/2021 groups, unions, fraternal or [...] place to sleep or slept in a long term (including now)? Education Answer Date Recorded What is the highest level of school you have Some college, n o degree 03/24/2021 completed or the highest degree you have received? 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 Plan of Treatment Scheduled Referrals Name Type Priority Associated Diagnoses Order S [facility] Vascular Medicine Outpatient Referral Routine Exp ected: office visit 01/23/2022 (clinic) Vascular (Approxima te), Surgery Referral Expires: 01/23/2023 documented as of this encounter Results US Aorta Iliac Arteries Bilateral with Doppler (02/23/2022 2:18 PM CDT) Anatomical Region Laterality Modality Abdomen, Pelvis, Ultrasound RST LOS, Ultrasound ARZ LOS, Rodríguez ateral Ultrasound Ultrasound FLA LOS, Procedural Specimen (Source) Anatomical Collection Method Collection Time Re ceived Time Location / / Volume Laterality 02/23/2022 2:31 PM CDT Impressions 02/23/2022 2:49 PM CDT 1. Patent right common iliac artery stent with elevated velocities distally consistent with a stenosis. This may be mildly progressed from the 2019 exam. Elevated velocities in the right external and internal iliac arteries may also be due to stenoses. 2. Patent left common and external iliac artery stents with elevated velocities within both stents proximally consistent with stenoses. The se are likely stable from the prior exam. Narrative 02/23/2022 2:49 PM CDT EXAM: US AORTA ILIAC ARTERIES BILATERAL WITH DOPPLER Exam performed with color and spectral D oppler analysis. COMPARISON: Left iliac artery ultrasound from 02/06/2021 and right iliac artery ultrasound from 02/08/2018 FINDINGS: Aorta: Distal abdominal aorta is normal caliber and without stenosis. Right: Patent stent in the right common iliac artery. Again seen are elevated velocities in the stent distally (velocities increase from 158 cm/s up to 288 cm/s) which may be due to a stenosis. Velocities are higher than on the 2018 s tudy (previously 241 cm/s) which could be due to mild progression of stenosis. Elevated veloci ty in the external iliac artery (290 cm/s) consistent with a stenosis. This is similar to the prior e xam. Elevated velocities at the origin of the internal iliac artery (267 cm/s) could also be due to s tenosis. This is new from the prior exam. (Previously velocities were 163 cm/s). Left: Patent stent in the common iliac a rtery with elevated velocities proximally (up to 345 mL/s) consistent with a stenosis. Velocities a re mildly lower than on the prior exam (287 mL/s). Patent stent in the external iliac artery with stenosis proximally (maximum velocity 331 cm/s). Velocities are mildly lower than on the prior exam (previously 265 mL/s). Patent internal iliac artery without stenosis. Exam is performed in conjunction with an ultrasound of the bilateral lower extremities which will be reported separately Procedure Note Yon Gomez M.D. - 02/23/2022Format ting of this note might be different from the original. EXAM: US AORTA ILIAC ARTERIES BILATERAL WITH DOPPLER Exam performed with color and spectral D oppler analysis. COMPARISON: Left iliac artery ultrasound from 02/06/2021 and right iliac artery ultrasound from 02/08/2018 FINDINGS: Aorta: Distal abdominal aorta is normal caliber and without stenosis. Right: Patent stent in the right common iliac artery. Again seen are elevated velocities in the stent distally (velocities increase from 158 cm/s up to 288 cm/s) which may be due to a stenosis. Velocities are higher than on the 2018 s tudy (previously 241 cm/s) which could be due to mild progression of stenosis. Elevated veloci ty in the external iliac artery (290 cm/s) consistent with a stenosis. This is similar to the prior e xam. Elevated velocities at the origin of the internal iliac artery (267 cm/s) could also be due to s tenosis. This is new from the prior exam. (Previously velocities were 163 cm/s). Left: Patent stent in the common iliac a rtery with elevated velocities proximally (up to 345 mL/s) consistent with a stenosis. Velocities a re mildly lower than on the prior exam (287 mL/s). Patent stent in the external iliac artery with stenosis proximally (maximum velocity 331 cm/s). Velocities are mildly lower than on the prior exam (previously 265 mL/s). Patent internal iliac artery without stenosis. Exam is performed in conjunction with an ultrasound of the bilateral lower extremities which will be reported separately IMPRESSION: 1. Patent right common iliac artery sten t with elevated velocities distally consistent with a stenosis. This may be mildly progressed from the 2019 exam. Elevated velocities in the right external and internal iliac arteries may also be due to stenoses. 2. Patent left common and external iliac artery stents with elevated velocities within both stents proximally consistent with stenoses. The se are likely stable from the prior exam. Jayjay ETIENNE US PROCEDURES US Lower Extremity Arteries Bilateral (02/23/2022 2:18 PM CDT) Anatomical Region Laterality Modality Lower Extremity, Ultrasound RST LOS, Ultrasound ARZ LOS, Rodríguez ateral Ultrasound Ultrasound FLA LOS, Procedural Specimen (Source) Anatomical Collection Method Collection Time Re ceived Time Location / / Volume Laterality 02/23/2022 2:50 PM CDT Impressions 02/23/2022 3:03 PM CDT 1. Patent bilateral superficial femoral artery stents without significant stenosis. 2. 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 Narrative 02/23/2022 3:03 PM CDT EXAM: US LOWER EXTREMITY ARTERIES BILATERAL Exam performed with color and spectral D oppler analysis. COMPARISON: 02/06/2021 FINDINGS: RIGHT: ?? Common femoral: Patent and without signi ficant stenosis. Deep femoral: Patent and without signifi cant stenosis. Superficial femoral: Patent and without significant stenosis including the stent in the proximal/mid SFA. Popliteal: Patent and without significan t stenosis. LEFT: Common femoral: Patent and without signi ficant stenosis. Deep femoral: Patent and without signifi cant stenosis. Superficial femoral: Patent and without significant stenosis including the stented proximal SFA. Popliteal: Patent and without definite s tenosis. Anterior tibial artery: Patent without s tenosis. Tibial peroneal trunk: Patent and withou t stenosis. Posterior tibial: Patent with high-grade stenosis just after the origin (maximum velocity 214 cm/s). Peroneal: Patent and without stenosis pr oximally. MIMI RIGHT: ? PT: 0.91 ? DP: 0.88 ? Borderline MIMI associated with no rmal/abnormal ultrasound findings as described above. MIMI LEFT: ? PT: 0.85 ? DP: 0.82 ? Abnormal (mild) decreased MIMI ass ociated with abnormal ultrasound findings describe above. Disease Severity ??MIMI (rest) Non-compressible or nonreproducible >1.4 0 Normal ??1.00 Borderline 0.99-0.90 Mild 0.80-0.89 Moderate 0.50 - 0.79 Severe <0.50 Procedure Note Yon Gomez M.D. - 02/23/2022Format ting of this note might be different from the original. EXAM: US LOWER EXTREMITY ARTERIES BILATE RAL Exam performed with color and spectral D oppler analysis. COMPARISON: 02/06/2021 FINDINGS: RIGHT: Common femoral: Patent and without signi ficant stenosis. Deep femoral: Patent and without signifi cant stenosis. Superficial femoral: Patent and without significant stenosis including the stent in the proximal/mid SFA. Popliteal: Patent and without significan t stenosis. LEFT: Common femoral: Patent and without signi ficant stenosis. Deep femoral: Patent and without signifi cant stenosis. Superficial femoral: Patent and without significant stenosis including the stented proximal SFA. Popliteal: Patent and without definite s tenosis. Anterior tibial artery: Patent without s tenosis. Tibial peroneal trunk: Patent and withou t stenosis. Posterior tibial: Patent with high-grade stenosis just after the origin (maximum velocity 214 cm/s). Peroneal: Patent and without stenosis pr oximally. MIMI RIGHT: PT: 0.91 DP: 0.88 Borderline MIMI associated with normal/a bnormal ultrasound findings as described above. MIMI LEFT: PT: 0.85 DP: 0.82 Abnormal (mild) decreased MIMI associate d with abnormal ultrasound findings describe above. Disease Severity MIMI (rest) Non-compressible or nonreproducible >1.4 0 Normal 1.00 Borderline 0.99-0.90 Mild 0.80-0.89 Moderate 0.50 - 0.79 Severe <0.50 IMPRESSION: 1. Patent bilateral superficial femoral artery stents without significant stenosis. 2. 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 Authorizing Provider Result Jimmy Pak P.A.-C. [facility] US PROCEDURES Lower Extremity Arterial (MIMI) - Exercise (Claudication) [...] 02/06/2021. Jayjay Pak P.A.-C. CV VASCULAR PROCEDURES ECG 12 Lead (02/23/2022 9:36 AM CDT) P athologist Signature Ventricular Rate 78 BPM MUSE ECG/Min NC Interval 160 ms MUSE QRSD Interval 144 ms MUSE QT Interval 424 ms MUSE QTC Interval 483 ms MUSE P [place] 69 degrees MUSE R [place] -4 degrees MUSE T Wave [place] 20 degrees MUSE Specimen Anatomical Collection Method Collection Time Receive d Time (Source) Location / / Volume Laterality 02/23/2022 9:36 AM 9:37 CDT AM CDT Impressions MUSE - 02/23/2022 9:38 AM CDT Normal sinus rhythm Right bundle branch block with secondary ST-T abnormalities When compared with ECG of 31-AUG-2017 10 :15, No significant change was found Reviewed by JUAREZ Hsu Narrative This result has an attachment that is no t available. Procedure Note Paolo Duvall M.D. - 02/23/2022Format ting of this note might be different from the original. IMPRESSION: Normal sinus rhythm Right bundle branch block with secondary ST-T abnormalities When compared with ECG of 31-AUG-2017 10 :15, No significant change was found Reviewed by JUAREZ Hsu Jayjay Pak P.A.-C. 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
--- OUTSIDE RECORDS SUMMARY | 2022-03-16 12:19 | XMS_ITS | Encounter Summary ---
:1950 Author Organization [facility] Address [address] [place] [phone] Care Team Providers Name Role Phone Elsewhere, Pcp Primary Care Provider Unavailable Reason for Referral Outpatient (Routine) - Closed Specialty Diagnoses / Procedures Referred By Contact Refer red To Contact Diagnoses Follow Up Examination Status Post Surgery Jayjay Pak P.A.-C. [facility] Procedures US Lower Extremity Arteries Bilateral US Lower Extremity Artery Graft Bilateral [address] [place] [phone] Referral ID Status Reason Start Date Expiration Date Visits Requ ested Visits Authorized [id number] Closed 10/23/2021 10/23/2022 1 1 Reason for Visit Outpatient (Routine) - Closed Specialty Diagnoses / Procedures Referred By Contact Refer red To Contact Diagnoses Follow Up Examination Status Post Surgery Jayjay Pak P.A.-C. [facility] Procedures US Lower Extremity Arteries Bilateral US Lower Extremity Artery Graft Bilateral [address] [place] [phone] Referral ID Status Reason Start Date Expiration Date Visits Requ ested Visits Authorized [id number] Closed 10/23/2021 10/23/2022 1 1 Encounter Details Date Type Department Care Team Description 02/23/2022 Hospital Encounter Department of Jayjay Pak Follow Up Examination Radiology, Santiago Escobar P.A.-C. Status Post Surgery Building, in [address] [place] [address] [place] [phone] [place], [place] [phone] (Work) [phone] Social History Tobacco Use Types Packs/Day Years [...] week 03/25/2021 How often do you attend islam or methodist services? Never 03/25/2021 Do you belong to any clubs or organizations such as islam N o 03/25/2021 groups, unions, fraternal or [...] place to sleep or slept in a usp (including now)? Education Answer Date Recorded What is the highest level of school you have Some college, n o degree 03/24/2021 completed or the highest degree you have received? 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 omeprazole (PriLOSEC) 40 Take 40 mg by mouth [address] capsule every evening. oxyCODONE (ROXICODONE) 5 Take 5-10 mg by 0 04/01/ 2022 mg immediate release mouth every 6 (six) [...] encounter Procedures Procedure Name Priority Date/Time Associated Comments Diagnosis US LOWER RAD - Routine 02/23/2022 2:18 Follow Up Results for this EXTREMITY (most inpatients PM CDT Examination Status proce dure are in ARTERIES and all Post Surgery the results BILATERAL outpatients) section. documented in this encounter Results US Lower Extremity Arteries Bilateral (02/23/2022 2:18 [...] origin of the left posterior tibial artery. Jayjay Pak P.A.-C. IMG US PROCEDURES documented in this encounter Visit Diagnoses Diagnosis Follow Up Examination Status Post Surger y documented in this encounter Additional Health Concerns Assessment Noted Time PHQ-9 Depression Total Score: 3 01/03/2018 10:38 AM CD T documented as of this encounter Care Teams Clay Maker Relationship Specialty Start Date End Date Elsewhere, Pcp PCP - General Family Medicine 01/29/20 documented as of this encounter
--- OUTSIDE RECORDS SUMMARY | 2022-03-16 12:19 | XMS_ITS | Encounter Summary ---
:1950 Author Organization [facility] Address [address] [place] [address] Care Team Providers Name Role Phone Elsewhere, Pcp Primary Care Provider Unavailable Reason for Referral Transplant (Routine) - Authorized Specialty Diagnoses / Procedures Referred By Contact Refer red To Contact Transplant Surgery / Diagnoses Chronic Kidney Disease Stage 4 Glomerular Filtration Rate 15-29 (HCC) [facility] Delmy Yan, Ph.D. [address] [place] [address] Referral ID Status Reason Start Date Expiration Date Visits V isits Requested Authorized [id number] Authorized 12/08/2021 12/08/2022 1 1 Reason for Visit Appointment Request (Routine) - Closed Specialty Diagnoses / Procedures Referred By Contact Refer red To Contact Nephrology and Hypertension Referral ID Status Reason Start Date Expiration Date Visits Requ ested Visits Authorized [id number] Closed 11/20/2021 11/20/2022 1 Encounter Details Date Type Department Care Team Description 12/08/2021 External Outreach Division of [facility] Kidney Disease Stage 4 Glomerular Filtration Rate 15-29 (HCC) (Primary Dx); Nephrology and Delmy Yan, Hypertension Essential Primary; Hypertension in Ph.D. Hyperkalemia; [place], [place] [address] Acidosis Metabolic Hyperchloremic; [address] [place], [place] [phone] Social History Tobacco Use Types Packs/Day Years [...] week 03/25/2021 How often do you attend confucianism or jewish services? Never 03/25/2021 Do you belong to any clubs or organizations such as confucianism N o 03/25/2021 groups, unions, fraternal or [...] place to sleep or slept in a longterm (including now)? Education Answer Date Recorded What is the highest level of school you have Some college, n o degree 03/24/2021 completed or the highest degree you have received? 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 - 12/08/2021 10:00 AM CDT PROGRESS NOTE OUTREACH [place] SUBJECTIVE CHIEF COMPLAINT / REASON FOR VISIT CKD 4 management HISTORY OF PRESENT ILLNESS Onesimo Walton is a 71 y.o. male who comes for follow up. Patient has CKD 4 in the setting of DM and HTN. He has been dealing with lower extremity edema, on treatment with loop diuretics. He does not check BP regularly at home, but when he has done it, it is at goal per his report. He follows a low salt diet Patient has not noticed any lightheadedness, dizziness, vision changes, diaphoresis, chest pain, difficulty breathing, or edema. Patient has not noticed any changes in urinary habits. No hesitancy to urinate, no difficulty to urinate. OBJECTIVE BP 92/56 Pulse 60 PHYSICAL EXAMINATION Vitals reviewed. Constitutional Appearance: Normal appearance. HENT Head: Normocephalic and atraumatic. Nose: Nose normal. Cardiovascular Rate and Rhythm: Normal rate and regular rhythm. Pulmonary Effort: Pulmonary effort is normal. Breath sounds: Normal breath sounds. Abdominal General: Bowel sounds are normal. Palpations: Abdomen is soft. Musculoskeletal General: No swelling. Normal range of motion. Cervical back: Normal range of motion and neck supple. Skin General: Skin is warm and dry. Neurological General: No focal deficit present. Mental Status: He is alert. Mental status is at baseline. Psychiatric Mood and Affect: Mood normal. Thought Content: Thought content normal. DIAGNOSTICS I have reviewed available labs in detail with patient. ASSESSMENT / PLAN #1 Chronic Kidney Disease Stage 4 Glomerular Filtration Rate 15-29 (HCC) #2 Hypertension Essential Primary #3 Hyperkalemia #4 Acidosis Metabolic Hyperchloremic #5 Excess Fluid Volume Patient comes for follow up. His kidney function has remained unchanged from prior with a Cr. Ranging between 3.1-3.4 mg/dL, eGFR 17-20. We have extensively discussed about the stages of CKD and patient's current status. CKD likely related to DM and HTN We discussed about the importance of controlling protein concentration in urine by lowering the saltintake, controlling blood pressure, maintaining a healthy weight. He is interested in kidney transplant evaluation. I have sent a referral. He is hesitant to discuss dialysis modalities, I have introduced the topic today, we will continue to discuss in our next visit. BP is borderline low today, but ok at home. BP goal is systolic readings between 100-130 mmHg and diastolic readings between 60-80 mmHg. I have recommended patient to check BP regularly at home, to keep a record of blood pressure readings. If BP is still not at goal, medications should be adjusted. I have discussed extensively with patient about risk of developing CKD progression if BP is not wellcontrolled. I recommended patient to follow a low salt diet and to exercise regularly. We discussed about salt intake and our recommendation to limit sodium intake, to less than 2000 mg per day. Patient verbalizes understanding. He continues on sodium bicarbonate supplementation. Bicarbonate level is at goal. Hemoglobin is stable at 11.5. He is on iron supplementation. He has hx of gouty attacks for which he takes colchicine, I have given prescription for PRN prednisone to use instead when needed for gout flare. All questions were answered Return to [facility] in 4 months documented in this encounter Plan of Treatment Scheduled Orders Name Type Priority Associated Diagnoses Order S chedule Renal Function Panel Lab Routine Chronic Kidney Disea se Expected: 03/16/2022 Stage 4 Glomerular (Approxim ate), Filtration Rate 15-29 s: 03/10/2023 ([facility]) Cystatin C with Estimated Lab Routine Chronic Kidney Disease Expected: 03/16/2022 GFR, S Stage 4 Glomerular (Approxim ate), Filtration Rate 15-29 s: 03/10/2023 ([facility]) Urinalysis with Lab Routine Chronic Kidney Disease Ex pected: 03/16/2022 Microscopic: Urine, Stage 4 Glomerular (A pproximate), Midstream Filtration Rate 15-29 s: 03/10/2023 ([facility]) Protein/Creatinine Ratio, Lab Routine Chronic Kidney Disease Expected: 03/16/2022 Random, Urine Stage 4 Glomerular (Approxi mate), Filtration Rate 15-29 s: 03/10/2023 ([facility]) Albumin, Random, Urine Lab Routine Chronic Kidney Dis ease Expected: 03/16/2022 Stage 4 Glomerular (Approxim ate), Filtration Rate 15-29 s: 03/10/2023 ([facility]) Uric Acid Lab Routine Chronic Kidney Disease Expec jennifer: 03/16/2022 Stage 4 Glomerular (Approxim ate), Filtration Rate 15-29 s: 03/10/2023 ([facility]) Parathyroid Hormone (PTH) Lab Routine Chronic Kidney Disease Expected: 03/16/2022 Stage 4 Glomerular (Approxim ate), Filtration Rate 15-29 s: 03/10/2023 ([facility]) Iron and Total Lab Routine Chronic Kidney Disease Exp ected: 03/16/2022 Iron-Binding Capacity Stage 4 Glomerular (Approximate), Filtration Rate 15-29 s: 03/10/2023 ([facility]) Ferritin Lab Routine Chronic Kidney Disease Expec jennifer: 03/16/2022 Stage 4 Glomerular (Approxim ate), Filtration Rate 15-29 s: 03/10/2023 ([facility]) Scheduled Referrals Name Type Priority Associated Order Schedule Diagnoses Transplant - Kidney Outpatient Referral Routine Chronic Kidney Expected: and pancreas consult Disease Stage 4 11/14 (clinic) Glomerular (Approximate), Filtration Rate Expires: 15- ([facility]) 03/10/2023 documented as of this encounter Visit Diagnoses Diagnosis Chronic Kidney Disease Stage 4 Glomerula r Filtration Rate 15-29 (HCC) - Primary Hypertension Essential Primary Hyperkalemia Acidosis Metabolic Hyperchloremic Excess Fluid Volume documented in this encounter Additional Health Concerns Assessment Noted Time PHQ-9 Depression Total Score: 3 01/03/2018 10:38 AM CD T documented as of this encounter Care Teams Cafe Cook Relationship Specialty Start Date End Date Elsewhere, Pcp PCP - General Family Medicine 01/29/20 documented as of this encounter
--- OUTSIDE RECORDS SUMMARY | 2022-03-16 12:19 | XMS_ITS | Encounter Summary ---
:1950 Author Organization [facility] Address [address] [place] [address] Care Team Providers Name Role Phone Elsewhere, Pcp Primary Care Provider Unavailable Encounter Details Date Type Department Care Team Description 11/04/2021 Hospital Department of [place], Hypertension And Chronic Kidney Disease Stage 1 To 4; Encounter Laboratory Hui E, Chronic Kidney Disease Stage 4 Glomerular Filtration Rate 15-29 (HCC); Medicine in ANGLE SHEARER, C.N.P., Hyperparathyro idism Secondary (HCC); Kylah Phillips.N.P. Anemia Of Chron ic Renal Disease [address] [place] [address] Social History Tobacco Use Types Packs/Day Years [...] week 03/25/2021 How often do you attend denominational or synagogue services? Never 03/25/2021 Do you belong to any clubs or organizations such as denominational N o 03/25/2021 groups, unions, fraternal or [...] place to sleep or slept in a prison (including now)? Education Answer Date Recorded What is the highest level of school you have Some college, n o degree 03/24/2021 completed or the highest degree you have received? 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 Take 1 tablet by 0 02/24/20 22 [id number] 27 mg mouth daily. iron- 1 mg tablet sodium bicarbonate 650 Take 1 tablet (650 [...] Associated Diagnosis Comme nts RENAL FUNCTION Routine 11/04/2021 9:07 AM Hypertension And Res ults for this PANEL, S CDT Chronic Kidney procedure are in Disease Stage 1 To 4 the results Chronic Kidney section. Disease Stage 4 Glomerular Filtration Rate 15-29 (HCC) Hyperparathyroidism Secondary (HCC) Anemia Of Chronic Renal Disease CYSTATIN C WITH EGFR Routine 11/04/2021 9:07 AM Hypertension A nd Results for this CDT Chronic Kidney procedure are in Disease Stage 1 To 4 the results Chronic Kidney section. Disease Stage 4 Glomerular Filtration Rate 15-29 (HCC) Hyperparathyroidism Secondary (HCC) Anemia Of Chronic Renal Disease CBC WITHOUT Routine 11/04/2021 9:07 AM Hypertension And Resul ts for this DIFFERENTIAL, B CDT Chronic Kidney procedure are in Disease Stage 1 To 4 the results Chronic Kidney section. Disease Stage 4 Glomerular Filtration Rate 15-29 (HCC) Hyperparathyroidism Secondary (HCC) Anemia Of Chronic Renal Disease URIC ACID, S/P Routine 11/04/2021 9:07 AM Hypertension And Res ults for this CDT Chronic Kidney procedure are in Disease Stage 1 To 4 the results Chronic Kidney section. Disease Stage 4 Glomerular Filtration Rate 15-29 (HCC) Hyperparathyroidism Secondary (HCC) Anemia Of Chronic Renal Disease PARATHYROID HORMONE Routine 11/04/2021 9:07 AM Hypertension An d Results for this (PTH), S CDT Chronic Kidney procedure are in Disease Stage 1 To 4 the results Chronic Kidney section. Disease Stage 4 Glomerular Filtration Rate 15-29 (HCC) Hyperparathyroidism Secondary (HCC) Anemia Of Chronic Renal Disease documented in this encounter Results (ABNORMAL) Uric Acid (11/04/2021 9:07 AM CDT) athologist Signature Uric Acid, P 9.7 (H) 3.7 - 8.0 11/04/2021 [facility] mg/dL 5:09 PM CDT Specimen Anatomical Collection Method Collection Time Receive d Time (Source) Location / / Volume Laterality Blood (Blood, 11/04/2021 9:07 AM 11/05/19 4:39 Venous) CDT PM CDT Hui Delgado APRN, C.N.P., D.N.P. LAB BLOOD AD D-ON Performing Organization Address City/State/ZIP Code Phon e Number [facility] [address] [place] [address] [facility] [place] [address] [facility] [address] (ABNORMAL) Cystatin C with Estimated GFR, S (11/04/2021 9:07 AM CDT) P athologist Signature eGFR by 19 (L) >60 11/05/2021 DTL Cystatin C mL/min/BSA 12:08 PM CDT Comment: Estimated GFR calculated using the CKD-E PI Cystatin C (2012) equation. ----ADDITIONAL INFORMATION---- Cystatin C-based eGFR may differ substantially from creatinine- based eGFR in patients with abnormal muscle mass or acutely changing renal function. ??Please interpret together with relevant clinical features. On 10/09/2020 the cystatin C assay method changed. Cystatin C eGFR results > 50 ml/min/1.73m2 are approximately 10% lower with the new assay. Cystatin C 2.85 (H) 0.67 - 1.21 mg/L 11/05/2021 12:08 PM CD T DTL Specimen Anatomical Collection Method Collection Time Receive d Time (Source) Location / / Volume Laterality Blood (Blood, 11/04/2021 9:07 AM 11/06/19 22 Venous) CDT 11:38 AM CDT Hui Delgado APRN C.N.P., D.N.P. LAB BLOOD AD D-ON Performing Organization Address City/State/ZIP Code Phon e Number [facility] - [address] [place], [place] [address] [facility] [place] [address] [facility] [address] [facility] (ABNORMAL) Parathyroid Hormone (PTH) (11/04/2021 9:07 AM CDT) Analysis Performed At Patho logist Time Signature Parathyroid 253 (H) 15 - 65 11/04/2021 [facility] Hormone (PTH), S pg/mL 5:03 PM CDT Comment: Biotin has been identified by the lauryn cturer as a potential interfering substance. Higher concentrations of biotin may be found in multivitamins, dewitt ir/nail supplements, and workout supplements. If the result d oes not match clinical observations, repeat testing af ter patient refrains from the use of supplements for at least 12 hours. Specimen Anatomical Collection Method Collection Time Receive d Time (Source) Location / / Volume Laterality Blood (Blood, 11/04/2021 9:07 AM 11/05/19 4:39 Venous) CDT PM CDT Hui Delgado APRN, C.N.P., D.N.P. LAB BLOOD AD D-ON Performing Organization Address City/State/ZIP Code Phon e Number [facility]- [address] [place] [address] [facility] [place] [address] [facility] [address] (ABNORMAL) Renal Function Panel (11/04/2021 9:07 AM CDT) Analysis Performed At Patho logist Time Signature Potassium, P 4.8 3.6 - 5.2 11/04/2021 [place] mmol/L 11:43 AM CDT Sodium, P 139 135 - 145 11/04/2021 [facility] mmol/L 11:43 AM CDT Chloride, P 100 98 - 107 11/04/2021 [facility] mmol/L 11:43 AM CDT Bicarbonate, P 24 22 - 29 11/04/2021 [facility] mmol/L 11:43 AM CDT Anion Gap, P 15 7 - 15 11/04/2021 [facility] 11:43 AM CDT BUN (Blood Urea 43 (H) 8 - 24 11/04/2021 [facility] Nitrogen), P mg/dL 11:43 AM CDT Creatinine 3.42 (H) 0.74 - 11/04/2021 [facility] 1.35 mg/dL 11:43 AM CDT eGFR-Black/Afri 20 (L) >=60 11/04/2021 [facility] can Micronesian mL/min/BSA 11:43 AM CDT Comment: ----ADDITIONAL INFORMATION---- Estimated GFR calculated using the 2009 CKD_EPI creatinine equation. eGFR Non-Black/ 17 (L) >=60 mL/min/BSA 11/04/2021 11:43 AM CDT [facility] Micronesian Comment: ----ADDITIONAL INFORMATION---- Estimated GFR calculated using the 2009 CKD_EPI creatinine equation. Calcium, Total, P 8.0 (L) 8.8 - 10.2 mg/dL 11/04/2021 11:4 3 AM CDT [facility] Glucose, P 171 (H) 70 - 140 mg/dL 11/04/2021 11:43 AM CDT [facility] Albumin, P 3.9 3.5 - 5.0 g/dL 11/04/2021 11:43 AM CDT [facility] Phosphorus (Inorganic), P 4.5 2.5 - 4.5 mg/dL 11/05/19 5:09 PM CDT [facility] Specimen Anatomical Collection Method Collection Time Receive d Time (Source) Location / / Volume Laterality Blood (Blood, 11/04/2021 9:07 AM 11/05/19 4:39 Venous) CDT PM CDT Narrative [facility] - 11/04/2021 5:09 PM CDT Specimen Information: Specimen ID: [id number] Specimen Type: Blood Specimen Collection Start Date: 11/05/19 ??9:07 AM Specimen Received Date: 11/04/2021 ??4:3 9 PM Specimen ID: [id number] Specimen Type: Blood Specimen Collection Start Date: 11/05/19 ??9:07 AM Specimen Received Date: 11/04/2021 11:03 AM Hui Delgado APRN, C.N.P., D.N.P. LAB BLOOD AD D-ON Performing Organization Address City/State/ZIP Code Phon e Number [facility]- [address] [place] [address] [place] [address] System in [place] [address] [facility] [place], [place] [id number] [place] [address] (ABNORMAL) CBC without Differential (11/04/2021 9:07 AM CDT) [facility] gist Method Time Signature Hemoglobin 11.5 (L) 13.2 - 11/04/2021 FB60 16.6 g/dL 9:41 AM CDT Hematocrit 34.6 (L) 38.3 - 11/04/2021 FB60 48.6 % 9:41 AM CDT Erythrocytes 3.58 (L) 4.35 - 11/04/2021 FB60 5.65 9:41 AM CDT x10(12)/L MCV 96.6 78.2 - 11/04/2021 FB60 97.9 fL 9:41 AM CDT RBC Distrib Width 13.7 11.8 - 11/04/2021 FB60 14.5 % 9:41 AM CDT Platelet Count 248 135 - 317 11/04/2021 FB60 x10(9)/L 9:41 AM CDT Leukocytes 11.3 (H) 3.4 - 9.6 11/04/2021 FB60 x10(9)/L 9:41 AM CDT Specimen Anatomical Collection Method Collection Time Receive d Time (Source) Location / / Volume Laterality Blood (Blood, 11/04/2021 9:07 AM 11/05/19 9:07 Venous) CDT AM CDT Hui Delgado APRN, C.N.P., D.N.P. LAB BLOOD AD D-ON Performing Organization Address City/State/ZIP Code Phon e Number [facility] [place] [address] [place], [place] [phone] [place] [address] LAB [address] [place] [address] System in [address] documented in this encounter Visit Diagnoses Diagnosis Hypertension And Chronic Kidney Disease Stage 1 To 4 Chronic Kidney Disease Stage 4 Glomerula r Filtration Rate 15-29 (HCC) Hyperparathyroidism Secondary (HCC) Anemia Of Chronic Renal Disease documented in this encounter Additional Health Concerns Assessment Noted Time PHQ-9 Depression Total Score: 3 01/03/2018 10:38 AM CD T documented as of this encounter Care Teams Flute Polisher Relationship Specialty Start Date End Date Elsewhere, Pcp PCP - General Family Medicine 01/29/20 documented as of this encounter
--- OUTSIDE RECORDS SUMMARY | 2022-03-16 12:19 | XMS_ITS | Encounter Summary ---
:1950 Author Organization [facility] Address [address] [place] [address] Care Team Providers Name Role Phone Elsewhere, Pcp Primary Care Provider Unavailable Encounter Details Date Type Department Care Team Description 10/21/2021 Hospital Encounter Department of [place], Hyperte nsion And Chronic Kidney Disease Stage 1 To 4; Laboratory Medicine Hui Reddy APRN, Chroni c Kidney Disease Stage 4 Glomerular Filtration Rate 15-29 (HCC) in Jacqueline, C.N.P., D.N.P. [address] [place] [id number] Social History Tobacco Use Types Packs/Day Years [...] week 03/25/2021 How often do you attend mu-ism or islam services? Never 03/25/2021 Do you belong to any clubs or organizations such as mu-ism N o 03/25/2021 groups, unions, fraternal or [...] place to sleep or slept in a detention (including now)? Education Answer Date Recorded What is the highest level of school you have Some college, n o degree 03/24/2021 completed or the highest degree you have received? 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 iron- 1 mg [...] Name Priority Date/Time Associated Diagnosis Comme nts POTASSIUM, S/P Routine 10/21/2021 12:02 Hypertension And Resul ts for this PM CDT Chronic Kidney procedure are in Disease Stage 1 To 4 the results Chronic Kidney section. Disease Stage 4 Glomerular Filtration Rate 15-29 (HCC) CREATININE WITH Routine 10/21/2021 12:02 Hypertension And Resu lts for this EGFR, S/P PM CDT Chronic Kidney procedure are in Disease Stage 1 To 4 the results Chronic Kidney section. Disease Stage 4 Glomerular Filtration Rate 15-29 (HCC) documented in this encounter Results (ABNORMAL) Creatinine with Estimated GFR (10/21/2021 12:02 PM CDT) Analysis Performed At Patho logist Time Signature Creatinine 3.41 (H) 0.74 - 10/21/2021 [facility] 1.35 mg/dL 2:21 PM CDT eGFR-Black/Afri 20 (L) >=60 10/21/2021 [facility] can Czech mL/min/BSA 2:21 PM CDT Comment: ----ADDITIONAL INFORMATION---- Estimated GFR calculated using the 2009 CKD_EPI creatinine equation. eGFR Non-Black/ 17 (L) >=60 mL/min/BSA 10/21/2021 2:21 PM CDT [facility] Czech Comment: ----ADDITIONAL INFORMATION---- Estimated GFR calculated using the 2009 CKD_EPI creatinine equation. Specimen Anatomical Collection Method Collection Time Receive d Time (Source) Location / / Volume Laterality Blood (Blood, 10/21/2021 12:02 10/21/2021 1:05 Venous) PM CDT PM CDT Hui Delgado APRN, C.N.P., D.N.P. LAB BLOOD AD D-ON Performing Organization Address City/State/ZIP Code Phon e Number [facility]- [address] [place] [address] [facility] [place] [address] System in [place] [address] Potassium (10/21/2021 12:02 PM CDT) P athologist Signature Potassium, P 4.8 3.6 - 5.2 10/21/2021 [facility] mmol/L 2:21 PM CDT Specimen Anatomical Collection Method Collection Time Receive d Time (Source) Location / / Volume Laterality Blood (Blood, 10/21/2021 12:02 10/21/2021 1:05 Venous) PM CDT PM CDT Hui Delgado APRN C.N.P., D.NFeiP. LAB BLOOD AD D-ON Performing Organization Address City/State/ZIP Code Phon e Number [facility]- [address] [place] [address] [place] [address] System in [place] [address] documented in this encounter Visit Diagnoses Diagnosis Hypertension And Chronic Kidney Disease Stage 1 To 4 Chronic Kidney Disease Stage 4 Glomerula r Filtration Rate 15-29 (HCC) documented in this encounter Additional Health Concerns Assessment Noted Time PHQ-9 Depression Total Score: 3 01/03/2018 10:38 AM CD T documented as of this encounter Care Teams Data Network Architect Relationship Specialty Start Date End Date Elsewhere, Pcp PCP - General Family Medicine 01/29/20 documented as of this encounter
--- OUTSIDE RECORDS SUMMARY | 2022-03-16 12:19 | XMS_ITS | Encounter Summary ---
:1950 Author Organization [facility] Address [address] [place] [address] Care Team Providers Name Role Phone Elsewhere, Pcp Primary Care Provider Unavailable Reason for Visit Reason Comments Med Refill Encounter Details Date Type Department Care Team Description 09/15/2021 Refill Department of Family Medicine, Bambi Adler Med Refill [facility], in Renee Phillips M.D. [place] [address] [place] [address] [place] [address] [phone] Social History Tobacco Use Types Packs/Day Years [...] week 03/25/2021 How often do you attend buddhism or christianity services? Never 03/25/2021 Do you belong to any clubs or organizations such as buddhism N o 03/25/2021 groups, unions, fraternal or [...] place to sleep or slept in a custodial (including now)? Education Answer Date Recorded What is the highest level of school you have Some college, n o degree 03/24/2021 completed or the highest degree you have received? 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
--- OUTSIDE RECORDS SUMMARY | 2022-03-16 12:19 | XMS_ITS | Clinical Summary ---
:1950 Author Organization [facility] Address [address] [place] [address] Care Team Providers Name Role Phone Elsewhere, Pcp Primary Care Provider Unavailable Source Comments Patient records contain information from all sites at [facility]. For routine questions regarding patient records, call [phone] during business hours, M-F 8:00 AM - 5:00 PM Central Time. Record requests for emergency care only can be directed to [phone] at any time.[facility] Allergies Active Allergy Reactions Severity Noted Date Comments Gabapentin Other (see comments) Medium 08/04/2020 Dizzy, memory issue Morphine Itching, Rash Medium 02/14/2012 itchy Pregabalin Anaphylaxis High 02/16/2017 swell Rmkcymt-Crk-[id number] Myalgia Low 02/13/2014 Reductase Inhibitors Medications Medication Sig Dispensed Refills Start Date End Date Status DULoxetine (CYMBALTA) Take 60 mg by 0 08/16/[address] capsule mouth at bedtime. aspirin [address] Take 325 mg by 0 Active tablet mouth daily. Take in evening nortriptyline Take 100 mg by 5 12/06/2017 Active (PAMELOR) 50 mg mouth at bedtime. capsule lancets 6 each daily. 600 each 3 03/07/2019 Activ e omeprazole (PriLOSEC) Take 40 mg by 0 09/25/[address] capsule mouth every evening. ferrous sulfate 325 mg Take 27 mg by 0 Active (65 mg iron) tablet mouth daily. States taking 27 mg daily pen needle, diabetic Inject 1 Injection 400 each 3 05/14/2019 Active 31 gauge x 5/16 under the skin needle daily. Inject 1 injection under the skin 4 times daily atorvastatin (LIPITOR) Take 1 tablet (20 90 tablet 3 0 Active 20 mg tablet mg total) by mouth at bedtime. pramipexole (MIRAPEX) Take 0.5 mg by 0 Active 0.5 mg tablet mouth at bedtime. colchicine (COLCRYS) Take 1 tablet (0.6 0 05/10/2020 Active 0.6 mg tablet mg total) by mouth as directed. For gout flare, take one tab in the evenings until symptoms go away (usually 2-3 days) lisinopriL Take 0.5 tablets 0 03/25/2021 A ctive (PRINIVIL,ZESTRIL) 40 (20 mg total) by mg tablet mouth daily. Patient reports it was decreased by primary physician about 04/2020 per patient report. carvediloL (COREG) 25 Take 2 tablets (50 0 1 Active mg tablet mg total) by mouth 2 (two) times a day with meals. acetaminophen Take 2 tablets 0 03/25/2021 Active (TYLENOL) 500 mg (1,000 mg total) tablet by mouth every 8 (eight) hours as needed (neuropathy). insulin glargine Inject 35 Units 15 mL 0 03/25/2021 Active (Basaglar KwikPen under the skin U-100 Insulin) 100 every evening. unit/mL (3 mL) injection Additional Information Patient taking differently: 40 Units subcutaneous Every evening, Reported on 09/28/2021 insulin aspart U-100 (NovoLOG Inject 8-15 Units under the 0 03/25/2021 Active Flexpen U-100 Insulin) 100 skin 3 (three) times a day with unit/mL (3 mL) injection meals. (sometimes takes more than 3 times per day depending on what he is eating and activity). Additional Information Patient taking differently: 10-25 Units subcutaneous 3 times daily with meals, (sometimes takes more than 3 times per day depending on what he is eating and activity)., Reported on 09/28/2021 amLODIPine (NORVASC) 5 mg Take 1 tablet (5 mg 90 tablet 3 05/16 Active tablet total) by mouth daily. Additional Information Patient taking differently: 10 mg oral Daily, Reported on 09/28/2021 doxepin (SINEquan) 10 TAKE ONE CAPSULE 90 capsule 3 05/28/2021 Active mg capsule BY MOUTH EVERY DAY AT BEDTIME calcium citrate Take 4 tablets 300 tablet 3 06/16/2021 Active (CALCITRATE) 950 mg (800 mg of calcium (200 mg calcium) total) by mouth at tablet bedtime. Increased to 4 pills at bedtime oxyCODONE Take 5-10 mg by 0 08/14/2021 Act radha (ROXICODONE) 5 mg mouth every 6 immediate release (six) hours as tablet needed. for pain blood sugar TEST 6 TIMES DAILY 0 06/16/2021 Active diagnostic (Accu-Chek DIRECTED Guide test strips) strips furosemide (LASIX) 40 Take 1.5 tablets 135 tablet 3 09/28/2021 Active mg tablet (60 mg total) by 3 mouth daily. 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 Sundays Take 1 tablet by 0 Dis continued [id number] 27 mouth daily. 2 mg iron- 1 mg tablet Active Problems Patient Care Coordination Note Formatting of this note might be differe nt from the original. Spouse: Siria Children: Maria M Deluca, Paty, Pat, 13 grand babies Work: no Problem Noted Date Hyperparathyroidism Secondary 05/27/2021 Diabetes Mellitus Type 2 With Diabetic Nephropathy 04/2022 Follow Up Examination Status Post Surgery 02/10/2021 Hyperkalemia 09/29/2020 Acidosis Metabolic Hyperchloremic 09/29/2020 Osteodystrophy Renal 06/16/2020 Anemia Of Chronic Renal Disease 06/16/2020 Acute Respiratory Failure With Hypoxia 05/08/2020 Pneumonia Community Acquired 05/08/2020 Neuropathy Peripheral 04/21/2018 Restless Leg Syndrome 01/12/2018 Atherosclerosis Of [place] Arteries Of Extremities With Intermittent 08/08/2017 Claudication Right Leg Hyperlipidemia 07/22/2017 Ulcer Leg Left 04/19/2017 Ulcer Toe Left 04/19/2017 Atherosclerosis Of [place] Arteries Of Left Leg With Ul ceration Of 04/19/2017 Unspecified Site Peripheral Arterial Disease 02/16/2017 Hypertension NOS 02/16/2017 Hypertensive Chronic Kidney Disease (CKD) Stage 3b Peace merular Filtration 09/23/2016 Rate (GFR) 30 To 44 Overview: Hypertension (HTN) And CKD Stage 1-4 Custodial Use Of Insulin Active 09/23/2016 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 Peripheral Katya rial Disease (HCC) 02/23/2022 Hospital Encounter Radiology Jayjay Pak Follow Up A, P.A.-C. Examination Sta tus Post Surgery 02/23/2022 Hospital Encounter Radiology Jayjay Pak Follow Up A, P.A.-C. Examination Sta tus Post Surgery 02/23/2022 Hospital Encounter Vascular Medicine Jayjay Pak Pe ripheral Arterial Disease (HCC) (Primary Dx); A, P.A.-C. Follow Up Exami nation Status Post Surgery 01/20/2022 Refill Nephrology and [place], Med Refill Hypertension Hui Reddy APRN, C.N.P., D.N.P. from Last 3 Months Immunizations Name Administration Dates Next Due HZV (ZOSTAVAX) 02/02/2012 Influenza Split 02/10/2017 Influenza TIV (IM) 05/10/2013, 02/02/2012, 05/27/2011, 02/13/2010, 03/13/2008, 03/03/2007, 04/04/2006 Influenza, Unspecified 02/16/2016, 02/16/2016, 03/17/2015, 02/13/2014, 05/10/2013 PCV13 04/11/2017 PPSV23 04/24/2018, 02/14/2012, 02/13/2010 Td (Adult), adsorbed 03/24/2007, 05/16/1996 Tdap 08/16/2016, 08/16/2016 influenza high dose (65 years or 03/01/2018 older) (PF) Family History Medical History Relation Name Comments No Known Problems Brother 1 Joshua Colon polyps Brother 2 Armand Diabetes Brother 2 Armand Heart disease Brother 2 Armand Stroke Brother 2 Armand Diabetes Brother 3 Glenn Heart disease Father Hypertension Father Dementia Mother Alecia Diabetes Sister 1 Dianne Breast cancer Sister 2 Katie Prediabetes Sister 3 Elly Relation Name Status Comments Brother 1 Joshua Alive Brother 2 Armand Alive Brother 3 Glenn Alive Father (Age 74) natural causes Mother Alecia (Age 92) Sister 1 Dianne Alive Sister 2 Katie Alive unsure of medica l problems Sister 3 Elly Alive Social History Tobacco Use Types Packs/Day Years Used Date Smoking Tobacco: Every Day Cigarettes 1 35 S tarted: 05/16/1983 Smokeless Tobacco: Never Tobacco Cessation: Ready to Quit: No; Co unseling Given: No Comments: has tried to quit many times, [...] week 03/25/2021 How often do you attend yazidi or adventist services? Never 03/25/2021 Do you belong to any clubs or organizations such as yazidi N o 03/25/2021 groups, unions, fraternal or [...] place to sleep or slept in a fci (including now)? Education Answer Date Recorded What is the highest level of school you have Some college, n o degree 03/24/2021 completed or the highest degree you have received? 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 Vital Signs Vital Sign Reading Time Taken Comments Blood Pressure 198/73 02/23/2022 3:01 PM CDT Pulse 80 02/23/2022 3:01 PM CDT Temperature 36.7 ??C (98.1 ??F) 05/10/2020 12:30 PM MANDARIN TEACHER Respiratory Rate 31 05/10/2020 1:45 PM MANDARIN TEACHER Oxygen Saturation 96% 05/10/2020 12:30 PM MANDARIN TEACHER Inhaled Oxygen Concentration - - Weight 84.8 kg (186 lb 15.2 oz) 02/23/2022 3:00 PM CDT Height 175 cm (5' 8.9) 02/23/2022 3:00 PM CDT Body Mass Index 27.69 02/23/2022 3:00 PM CDT Plan of Treatment Health Maintenance Due Date Last Done Comments CT Colonography 1950 Cologuard 1950 Depression Monitoring (PHQ-9) 1950 Hepatitis C Screening 1950 Hepatitis B Vaccines (1 of 3 - 2012 Risk 3-dose series) Zoster Vaccines (1 of 2) 03/29/2012 02/02/2012 Dilated Eye Exam 08/19/2017 08/19/2016 FIT 08/24/2017 08/24/2016 Diabetic Office Visit with Foot 07/22/2018 07/22/2017, 11/2016 Exam Diabetes Education 05/01/2019 05/01/2018, 09/23/2016 Tobacco Cessation counseling 09/24/2020 09/25/2019 Lung Cancer Screening 05/07/2021 05/07/2020 Fall Risk Screen (Annual) 05/16/2021 Hemoglobin A1C 08/10/2021 02/10/2021, 04/21/2018, 12/06/2017, Additional history exists COVID-19 Vaccine (5 - Booster for 12/22/2021 10/27/2021, , Pfizer series) 08/09/2020, Additional history exists Influenza Vaccine (#1) 2022 03/24/2021, 02/20/2020, 02/28/2019, Additional history exists Office Visit for Blood Pressure 05/26/2022 02/23/2022 Check / Re-check Creatinine Level 11/04/2022 11/04/2021, 10/21/2021, 09/24/2021, Additional history exists Potassium Level 11/04/2022 11/04/2021, 10/21/2021, 09/24/2021, Additional history exists Sodium Level 11/04/2022 11/04/2021, 09/24/2021, 08/24/2021, Additional history exists Urine Albumin 11/04/2022 11/04/2021, 08/24/2021, 05/22/2021, Additional history exists Lipid (Cholesterol) Screening 02/10/2026 02/10/2021, 2017, 09/20/2016, Additional history exists DTaP,Tdap,and Td Vaccines (2 - Td 08/16/2026 08/16/2016, , or Tdap) 03/24/2007, Additional history exists Colonoscopy 08/25/2026 08/25/2016 (Performed elsewhere) Colorectal Cancer Screening 08/25/2026 Abdominal Aortic Aneurysm (AAA) Completed 03/15/2018, 03/16, Screen 02/17/2017 Pneumococcal vaccine (65+ years) Completed 04/24/2018, , 02/14/2012, Additional history exists Medical Devices Implanted Type Area Dinkey Operator Device Shelf Model / Identifier Expiration Serial / Date Lot Patch Vasc Bovine.08cm X 8cm - Flores [id number] Mesh or Other/Legacy - S ynovis Implanted: Qty: 1 on 04/04/2017 Patch See Implant Description Description: Device Dinkey Operator - Synov is. Body Location - Other. Vascular. Device Status Text - [id number]. Ocular Lens-10/29/2007 Ocular Lens Bilateral: Eye Implanted: 10/29/2007 by Nato Dougherty, JLUIÁN, C.N.P. 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 Eye L. Eye R. Device Status Text - OculrLens. Conversions - Default Historical Implant Device Ocular Lens Left: Eye Implanted: 05/27/2017 (Quantity not on file) Description: Body Location - Eye L. Mary ce Status Text - OculrLens. Stent Vbx [id number] - Flores [id number] Vascular Graft Other/Legacy - See Implant [place] Implanted: Qty: 1 on 03/04/2017 Description Description: Device Dinkey Operator - [employer] Body Location - Other. n/a. Device Status Text - [id number]. Stent Zilver Ptx 6mm X 60mm - Flores [id number] Vascular Stent Other /Legacy - See [employer] Implanted: Qty: 1 on 04/04/2017 Implant Description Description: Device Dinkey Operator - [employer]. Body Location - Other. Left. Device Status Text - [id number]. Stent Zilver Ptx 6mm X 80mm - [id number] Vascular Stent Right : Other/Legacy - [employer] / Implanted: Qty: 1 on 08/31/2017 See Implant Inc. [id number] / Description Description: Device Dinkey Operator - Endocyte. Body Location - Right. Device Status Text - [id number]. Stnt Innova Otw [id number] - [id number] Vascular [place] 05/23/2020 [id number] / Implanted: Qty: 1 on 04/18/2018 by Kemar Velásquez M.B.B.S. at [facility] Stent Scientific / [id number] Stnt Innova Otw [id number] - [id number] Vascular Left: [place] 09/05/2020 [id number] / Implanted: Qty: 1 on 05/11/2019 by Kemar Velásquez M.B.B.S. at [facility] Stent Leg Scientific / [id number] Procedures Procedure Name Priority Date/Time Associated Comments Diagnosis US AORTA ILIAC RAD - Routine 02/23/2022 2:18 Follow Up Results f or this ARTERIES (most inpatients PM CDT Examination Status proce dure are in BILATERAL WITH and all Post Surgery the results DOPPLER outpatients) section. US LOWER RAD - Routine 02/23/2022 2:18 Follow Up Results for this EXTREMITY (most inpatients PM CDT Examination Status proce dure are in ARTERIES and all Post Surgery the results BILATERAL outpatients) section. LOWER EXTREMITY Routine 02/23/2022 11:23 Follow Up Results for this ARTERIAL (MIMI) - AM CDT Examination Status proce dure are in EXERCISE Post Surgery the results (CLAUDICATION) section. ECG Routine 02/23/2022 9:36 Follow Up Results for this AM CDT Examination Status procedure are in Post Surgery the results section. from Last 3 Months Results US Aorta Iliac Arteries Bilateral with [...] likely stable from the prior exam. Jayjay A Meverden P.A.-C. IMG US PROCEDURES US Lower Extremity Arteries Bilateral [...] posterior tibial artery. Authorizing Provider Result Jimmy ETIENNE US PROCEDURES Lower Extremity Arterial (MIMI) - [...] Signature Ventricular Rate 78 BPM MUSE ECG/Min TN Interval 160 ms MUSE QRSD Interval 144 ms MUSE QT Interval 424 ms MUSE QTC Interval 483 ms MUSE P [place] 69 degrees MUSE R [place] -4 degrees MUSE T Wave [place] 20 degrees MUSE Specimen Anatomical Collection Method [...] Code Phon e Number MUSE MUSE NA from Last 3 Months Insurance Payer Benefit Plan Subscriber ID Effective Phone Address Typ e / Group Dates MEDICARE MEDICARE A [id number] 2019-Pres [address] [place] [address] BLUE CROSS BCBS [place] [id number] 2019-Pres [phone] PO OMAR X Cost Share BLUE SHIELD BLUE COST ent [phone] [address] [place] [id number] Advance Directives For more information, please contact: [phone] Latest Code Status on File Code Status Date Activated Date Inactivated Comments Full Code 05/08/2020 11:37 AM 05/10/2020 4:58 PM Question Answer Comments Full Code: Discussed Code Status History Code Status Date Activated Date Inactivated Comments Full Code 05/11/2019 10:07 AM 05/11/2019 10:49 PM Question Answer Comments Full Code: Discussed Full Code 04/18/2018 4:43 PM 04/18/2018 10:04 PM Question Answer Comments Full Code: Discussed Full Code 04/18/2018 9:08 AM 04/18/2018 4:42 PM Question Answer Comments Full Code: Discussed Care Teams Documentation Nurse Relationship Specialty Start Date End Date Elsewhere, Pcp PCP - General Family Medicine 01/29/20
--- OUTSIDE RECORDS SUMMARY | 2022-03-16 12:19 | XMS_ITS | Encounter Summary ---
:1950 Author Organization 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 Anemia Of Chron ic Renal Disease [address] [place] [id number] Social History Tobacco [...] week 03/25/2021 How often do you attend roman catholic or spiritism services? Never 03/25/2021 Do you belong to any clubs or organizations such as roman catholic N o 03/25/2021 groups, unions, fraternal or [...] place to sleep or slept in a fdc (including now)? Education Answer Date Recorded What is the highest level of school you have Some college, n o degree 03/24/2021 completed or the highest degree you have received? 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 iron- 1 mg [...] Name Priority Date/Time Associated Diagnosis Comme nts ALBUMIN, RANDOM, U Routine 11/04/2021 8:58 AM Hypertension And Results for this CDT Chronic Kidney procedure are in Disease Stage 1 To 4 the results Chronic Kidney section. Disease Stage 4 Glomerular Filtration Rate 15-29 (HCC) Hyperparathyroidism Secondary (HCC) Anemia Of Chronic Renal Disease URINALYSIS WITH Routine 11/04/2021 8:58 AM Hypertension And Re sults for this MICROSCOPIC CDT Chronic Kidney procedure are in Disease Stage 1 To 4 the results Chronic Kidney section. Disease Stage 4 Glomerular Filtration Rate 15-29 (HCC) Hyperparathyroidism Secondary (HCC) Anemia Of Chronic Renal Disease documented in this encounter Results (ABNORMAL) Albumin, Random, Urine (11/04/2021 8:58 AM CDT) Patholo gist Method Time Signature Microalbumin 395.0 mg/L 11/04/2021 OWAT 12:11 PM CDT Creatinine 25 mg/dL 11/04/2021 OWAT 11:58 AM CDT Albumin/Creatinin 1580 (H) <17 mg/g 11/04/2021 OWAT e Ratio 12:11 PM CDT Specimen Anatomical Collection Method Collection Time Receive d Time (Source) Location / / Volume Laterality Urine (Urine, 11/04/2021 8:58 AM 11/05/19 Midstream) CDT 11:03 AM CDT Hui Delgado APRN, C.N.P., D.N.P. LAB URINE OR DERABLES Performing Organization Address City/State/ZIP Code Phon e Number [facility]- [address] [place] [address] [place] [address] System in [place] [address] [facility] (ABNORMAL) Urinalysis with Microscopic: Urine, Midstream (11/04/2021 8:58 AM CDT) Analysis Performed At Patho logist Time Signature Source Urine, Urine, 11/04/2021 FB60 Midstream 9:15 AM CDT Clarity Clear Clear 11/04/2021 FB60 9:43 AM CDT Color Yellow 11/04/2021 FB60 9:43 AM CDT Comment: ----REFERENCE VALUE---- Colorless Yellow Cha Blood Negative Negative 11/04/2021 9:43 AM CDT FB60 Nitrite Negative Negative 11/04/2021 9:43 AM CDT FB60 Leukocyte Esterase Negative Negative 11/04/2021 9:43 AM CD T FB60 Protein 100 (A) mg/dL 11/04/2021 9:43 AM CDT FB60 Comment: ----REFERENCE VALUE---- Negative Trace Glucose Negative Negative mg/dL 11/04/2021 9:43 AM CDT FB 60 Ketones, QI(U) Negative Negative mg/dL 11/04/2021 9:43 AM C DT FB60 Bilirubin Negative Negative 11/04/2021 9:43 AM CDT FB60 pH 7.0 5.0 - 8.0 11/04/2021 9:43 AM CDT FB60 Specific [place] 1.015 1.001 - 1.035 11/04/2021 9:43 AM CDT FB60 Urobilinogen 0.2 0.2 - 1.0 mg/dL 11/04/2021 9:43 AM CD T FB60 White Blood Cells Occ-3 /hpf 11/04/2021 9:43 AM CDT FB60 Comment: ----REFERENCE VALUE---- Males: 0-3 Females: 0-10 Unknown: 0-10 Red Blood Cells Occ-2 0 - 2 /hpf 11/04/2021 9:43 AM CDT FB60 Squamous Cells Occ-3 /hpf 11/04/2021 9:43 AM CDT FB 60 Specimen Anatomical Collection Method Collection Time Receive d Time (Source) Location / / Volume Laterality Urine (Urine, 11/04/2021 8:58 AM 11/05/19 9:15 Midstream) CDT AM CDT Hui Delgado APRN, C.N.P., D.N.P. LAB URINE OR DERABLES Performing Organization Address City/State/ZIP Code Phon e Number [facility]- [facility] [place] [address] [facility] [address] [place] [address] System [address] documented in this encounter Visit [...] documented as of this encounter Care Teams Shingle Sawyer Relationship Specialty Start Date End Date Elsewhere, Pcp PCP - General Family Medicine 01/29/20 documented as of this encounter
--- OUTSIDE RECORDS SUMMARY | 2022-03-16 12:19 | XMS_ITS | Encounter Summary ---
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 [place] [address] [place] [address] Social History Tobacco Use Types Packs/Day [...] week 03/25/2021 How often do you attend presybeterian or mormonism services? 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
--- OUTSIDE RECORDS SUMMARY | 2022-03-16 12:19 | XMS_ITS | Encounter Summary ---
:1950 Author Organization [facility] Address [address] [place] [address] Care Team Providers Name Role Phone Elsewhere, Pcp Primary Care Provider Unavailable Reason for Visit Reason Comments Follow-up Encounter Details Date Type Department Care Team Description 09/28/2021 Clinical Communication Division of Nephrology Abbey Kruse, Follow-up and Hypertension in [place], [place] [address] [facility] [address] [place] [phone] Social History Tobacco Use Types Packs/Day Years [...] week 03/25/2021 How often do you attend uatsdin or synagogue services? Never 03/25/2021 Do you belong to any clubs or organizations such as uatsdin N o 03/25/2021 groups, unions, fraternal or [...] place to sleep or slept in a care home (including now)? Education Answer Date Recorded What is the highest level of school you have Some college, n o degree 03/24/2021 completed or the highest degree you have received? 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 - 09/28/2021 1:33 PM CDT SUBJECTIVE CHIEF COMPLAINT / REASON FOR CALL Follow-up Information Discussed I called Onesimo to share Hui Delgado's recommendations with him. I asked Onesimo to take an additional 20 mg of Lasix today and increase his daily dose tomorrow to 60 mg. I will schedule an appointment for him for blood work next TuesdayOctober 06 at 10:00 am [facility]. I will also send anew prescription to [facility] for Lasix 60 mg daily. PLAN Disposition/Recommendation: recommended continue engagement in self-management activities Information/Education: patient/caller able to teach back Caller agreeable to plan of care: yes The following references were used: nursing clinical judgement and provider Hui Delgado DNP Telephone Encounter - Abbey Kruse R.N. - 09/28/2021 1:33 PM CDT ----- Message from Hui Delgado APRN, C.N.PFei, D.N.PFei sent at 09/28/2021 1:08 PM CDT ----- Labs stable, has edema and hypertension. I would increase his Lasix to 60 mg daily or do 40 am and 20 mg at noon. Then recheck his potasium and creatinine in one week . Hui ----- Message ----- From: Abbey Kruse R.N. Sent: 09/28/2021 1:03 PM CDT To: Hui Delgado APRN, C.N.PFei, D.N.P. documented in this encounter Plan of Treatment Not on filedocumented as of this encounter Results (ABNORMAL) Creatinine with Estimated GFR (10/21/2021 12:02 PM CDT) Analysis Performed At Patho logist Time Signature Creatinine 3.41 (H) 0.74 - 10/21/2021 [facility] 1.35 mg/dL 2:21 PM CDT eGFR-Black/Afri 20 (L) >=60 10/21/2021 [facility] can Gabonese mL/min/BSA 2:21 PM CDT Comment: ----ADDITIONAL INFORMATION---- Estimated GFR calculated using the 2009 CKD_EPI creatinine equation. eGFR Non-Black/ 17 (L) >=60 mL/min/BSA 10/21/2021 2:21 PM CDT [facility] [place]e Comment: ----ADDITIONAL INFORMATION---- Estimated GFR calculated using the 2009 CKD_EPI creatinine equation. Specimen Anatomical Collection Method Collection Time Receive d Time (Source) Location / / Volume Laterality Blood (Blood, 10/21/2021 12:02 10/21/2021 1:05 Venous) PM CDT PM CDT Hui Delgado APRN, C.N.P., D.N.P. LAB BLOOD AD D-ON Performing Organization Address City/State/ZIP Code Phon e Number [facility]- [address] [place] [address] [place] [address] System in [place] [address] Potassium (10/21/2021 12:02 PM CDT) P athologist Signature Potassium, P 4.8 3.6 - 5.2 10/21/2021 [facility] mmol/L 2:21 PM CDT Specimen Anatomical Collection Method Collection Time Receive d Time (Source) Location / / Volume Laterality Blood (Blood, 10/21/2021 12:02 10/21/2021 1:05 Venous) PM CDT PM CDT Hui Delgado APRN, C.N.P., D.N.P. LAB BLOOD AD D-ON Performing Organization Address City/State/ZIP Code Phon e Number [facility]- [address] [place] [address] [place] [address] System in [place] [address] documented in this encounter Visit Diagnoses Diagnosis Hypertension And Chronic Kidney Disease Stage 1 To 4 - Primary Chronic Kidney Disease Stage 4 Glomerula r Filtration Rate 15-29 (HCC) documented in this encounter Additional Health Concerns Assessment Noted Time PHQ-9 Depression Total Score: 3 01/03/2018 10:38 AM CD T documented as of this encounter Care Teams Veneer Sample Maker Relationship Specialty Start Date End Date Elsewhere, Pcp PCP - General Family Medicine 01/29/20 documented as of this encounter
--- OUTSIDE RECORDS SUMMARY | 2022-03-16 12:19 | XMS_ITS | Encounter Summary ---
:1950 Author Organization [facility] Address [address] [place] [id number] Care Team Providers Name Role Phone Elsewhere, Pcp Primary Care Provider Unavailable Reason for Referral Outpatient (Routine) - Closed Specialty Diagnoses / Procedures Referred By Contact Refer red To Contact Diagnoses Follow Up Examination Status Post Surgery Jayjay Pak P.A.-C. [facility] Procedures US Aorta Iliac Arteries Bilateral with Doppler [address] [place] [phone] Referral ID Status Reason Start Date Expiration Date Visits Requ ested Visits Authorized [id number] Closed 10/23/2021 10/23/2022 1 1 Reason for Visit Outpatient (Routine) - Closed Specialty Diagnoses / Procedures Referred By Contact Refer red To Contact Diagnoses Follow Up Examination Status Post Surgery Jayjay Pak P.A.-C. [facility] Procedures US Aorta Iliac Arteries Bilateral with Doppler [address] [place] [phone] Referral ID Status Reason Start Date Expiration Date Visits Requ ested Visits Authorized [id number] Closed 10/23/2021 10/23/2022 1 1 Encounter Details Date Type Department Care Team Description 02/23/2022 Hospital Encounter Department of Jayjay Pak Follow Up Examination Radiology, Santiago Escobar P.A.-C. Status Post Surgery [facility], in [address] [place], [place] [address] [place] [phone] [place], [place] [phone] (Work) [phone] Social History Tobacco Use Types Packs/Day Years [...] do you talk on the phone T wikeisha a week 03/25/2021 with family, friends, or neighbors? How often do you get together with friends or relatives? Onc e a week 03/25/2021 How often do you attend baptist or mosque services? Never 03/25/2021 Do you belong to any clubs or organizations such as baptist N o 03/25/2021 groups, unions, fraternal or [...] place to sleep or slept in a senior living (including now)? Education Answer Date Recorded What is the highest level of school you have Some college, n o degree 03/24/2021 completed or the highest degree you have received? 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 documented in this encounter Results US Aorta Iliac Arteries [...] likely stable from the prior exam. Jayjay Pak P.A.-C. [facility] US PROCEDURES documented in this encounter Visit Diagnoses Diagnosis Follow Up Examination Status Post Surger y documented in this encounter Additional Health Concerns Assessment Noted Time PHQ-9 Depression Total Score: 3 01/03/2018 10:38 AM CD T documented as of this encounter Care Teams Stock Shipper Relationship Specialty Start Date End Date Elsewhere, Pcp PCP - General Family Medicine 01/29/20 documented as of this encounter
--- OUTSIDE RECORDS SUMMARY | 2022-03-16 12:20 | XMS_ITS | Encounter Summary ---
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 furosemide (LASIX) 20 mg Take 1 tablet (20 mg 90 tablet 3 0 02/04/2021 08/26/2021 tablet total) by mouth daily. oxyCODONE (ROXICODONE) Take [...] Diagnosis Comme nts ALBUMIN, RANDOM, U Routine 08/24/2021 8:46 AM Anemia Of Chroni c Results for this CDT Renal Disease procedure are in Hypertension And the results Chronic Kidney section. 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 ) Chronic Kidney Disease Stage 4 Glomerular Filtration Rate 15-29 (HCC) documented in this encounter Results (ABNORMAL) Albumin, Random, Urine (08/24/2021 8:46 AM CDT) [facility] gist Method Time Signature Microalbumin 1117.0 mg/L 08/24/2021 [facility] 12:29 PM CDT Creatinine 51 mg/dL 08/24/2021 [facility] 11:46 AM CDT Albumin/Creatinin 2190 (H) <17 mg/g 08/24/2021 [facility] e Ratio 12:29 PM CDT Specimen Anatomical Collection Method Collection Time Receive d Time (Source) Location / / Volume Laterality Urine (Urine, 08/24/2021 8:46 AM 08/25/19 22 Midstream) CDT 10:50 AM CDT Hui Delgado APRN, C.N.P., D.N.P. LAB URINE OR DERABLES Performing Organization Address City/State/ZIP Code Phon e Number [facility]- [address] [place] [address] [place] [address] System in [place] [address] (ABNORMAL) Urinalysis with Microscopic: Urine, Midstream (08/24/2021 8:46 AM CDT) Analysis Performed At Patho logist Time Signature Source Urine, Urine, 08/24/2021 FB60 Midstream 8:59 AM CDT Clarity Clear Clear 08/24/2021 FB60 9:06 AM CDT Color Yellow 08/24/2021 FB60 9:06 AM CDT Comment: ----REFERENCE VALUE---- Colorless Yellow Cha Blood Trace (A) Negative 08/24/2021 9:06 AM CDT FB60 Nitrite Negative Negative 08/24/2021 9:06 AM CDT FB60 Leukocyte Esterase Negative Negative 08/24/2021 9:06 AM CD T FB60 Protein >=300 (A) mg/dL 08/24/2021 9:06 AM CDT FB60 Comment: ----REFERENCE VALUE---- Negative Trace Glucose Negative Negative mg/dL 08/24/2021 9:06 AM CDT FB 60 Ketones, QI(U) Negative Negative mg/dL 08/24/2021 9:06 AM C DT FB60 Bilirubin Negative Negative 08/24/2021 9:06 AM CDT FB60 pH 6.0 5.0 - 8.0 08/24/2021 9:06 AM CDT FB60 Specific [place] 1.020 1.001 - 1.035 08/24/2021 9:06 AM CDT FB60 Urobilinogen 0.2 0.2 - 1.0 mg/dL 08/24/2021 9:06 AM CD T FB60 White Blood Cells Occ-3 /hpf 08/24/2021 9:30 AM CDT FB60 Comment: ----REFERENCE VALUE---- Males: 0-3 Females: 0-10 Unknown: 0-10 Red Blood Cells Occ-2 0 - 2 /hpf 08/24/2021 9:30 AM CDT FB60 Squamous Cells 11-20 /hpf 08/24/2021 9:30 AM CDT FB 60 Specimen Anatomical Collection Method Collection Time Receive d Time (Source) Location / / Volume Laterality Urine (Urine, 08/24/2021 8:46 AM 08/25/19 8:58 Midstream) CDT AM CDT Hui Delgado APRN, C.N.P., D.N.P. LAB URINE OR DERABLES Performing Organization Address City/State/ZIP Code Phon e Number [place] [address] [place], [place] [id number] [place] [address] LAB [address] [place] [address] System in [address] documented in this encounter Visit Diagnoses Diagnosis Anemia Of Chronic Renal Disease 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 (HCC) Hyperparathyroidism Secondary (HCC) Diabetes Mellitus Type 2 With Diabetic N ephropathy (HCC) Chronic Kidney Disease Stage 4 Glomerula r Filtration Rate 15-29 (HCC) documented in this encounter Additional Health Concerns Assessment Noted Time PHQ-9 Depression Total Score: 3 01/03/2018 10:38 AM CD T documented as of this encounter Care Teams Manager Test Relationship Specialty Start Date End Date Elsewhere, Pcp PCP - General Family Medicine 01/29/20 documented as of this encounter
--- OUTSIDE RECORDS SUMMARY | 2022-03-16 12:20 | XMS_ITS | Encounter Summary ---
:1950 Author Organization [facility] Address [address] [place] [address] Care Team Providers Name Role Phone Elsewhere, Pcp Primary Care Provider Unavailable Reason for Visit Appointment Request (Routine) - Closed Specialty Diagnoses / Procedures Referred By Contact Refer red To Contact Nephrology and Hypertension Referral ID Status Reason Start Date Expiration Date Visits Requ ested Visits Authorized [id number] Closed 08/07/2021 08/07/2022 1 Encounter Details Date Type Department Care Team Description 08/26/2021 [facility] An d Chronic Kidney Disease Stage 1 To 4 (Primary Dx); Outreach Nephrology and Hui Chronic Kidne y Disease Stage 4 Glomerular Filtration Rate 15-29 (HCC); Hypertension in [employer], Hyperparathy roidism Secondary (HCC); [place], [place] C.N.P., Anemia Of Chronic Renal Dise ase [address] [facility] [place] [address] Social History Tobacco Use Types Packs/Day Years [...] How often do you attend confucianism or gnosticism services? Never 03/25/2021 Do you belong to [...] place to sleep or slept in a group home (including now)? Education Answer Date Recorded What is the highest level of school you have Some college, n o degree 03/24/2021 completed or the highest degree you have received? 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 - 08/26/2021 9:15 AM CDT Subjective: This visit is conducted at the [facility] nephrology clinic. History of Present Illness: Mr. Walton is a 71 y.o. male who presents for ongoing evaluation of chronic kidney disease. He was last seen in the chronic Kidney Disease Clinic on May 27, 2021. At his last visit he was advised to lower his protein intake. He also stated at the last visit he does not think he would proceed withdialysis when his kidneys fail. We will need to continue this conversation. His amlodipine was decreased to 5 mg daily due to lower extremity swelling. He is accompanied by his . He reports he is feeling tired but denies any signs or s symptoms of uremia. He reports feeling increased LE edema and his notices facial swelling. He endorses a good appetite. He has not been checking his blood pressures at home. Review of Systems The following systems were negative: Constitutional, CV, Respiratory, GI, , Neuro Objective: Constitutional Appearance: He is well-developed. Cardiovascular Rate and Rhythm: Normal rate and regular rhythm. Heart sounds: Normal heart sounds. No murmur heard. Pulmonary Effort: Pulmonary effort is normal. No respiratory distress. Comments: Crackles bilaterally lower lobes Musculoskeletal Right lower leg: Edema present. Left lower leg: Edema present. Skin General: Skin is warm and dry. Neurological Mental Status: He is alert and oriented to person, place, and time. Psychiatric Behavior: Behavior normal. Thought Content: Thought content normal. Judgment: Judgment normal. Vitals: 08/26/21 1222 BP: 142/78 Assessment/Plan: Lab results: A1C 7.9%, BUN 41, Creat 2.7, Na 137, K 4.6, CO2 26, Calcium 7.6 recheck at [facility] 8.1, Corrected calcium 8.4 See [facility] from 08/24/21 for the other results. #1 Chronic kidney Disease (CKD) stage 4, likely secondary to diabetes and hypertension Kidney function is stable. GFR is 20 mL/min. BUN is 52 mg/dL. He does not display signs of uremia today. Signs and symptoms of uremia reviewed today. #2 CKD treatment options Kidney Transplant:He wishes to explore kidney transplant option. I will refer him to the clinic forpossible evaluation. We did discuss with his co-morbids he may not qualify. He would need to stop smokingas well. Dialysis Plan: We discussed briefly today and he is still undecided if he would want to proceed with dialysis. He will continue to consider. #3 Hypertension Proteinuria has worsened from 1.5 g to 2.1 g. Hypertensive with increased fluid retention. Increase Lasix to 40 mg daily and recheck labs in one week. #4 Anemia of CKD Although hemoglobin is slightly low at 11.3 grams/deciliter it is satisfactory for patients with chronic kidney disease. #5 Hyperparathyroidism, renal secondary Calcium: Stable Phosphorus: at goal Phosphate Binder: Not needed Parathyroid Hormone: Elevated as expected for patients with chronic kidney disease however stable. We will continue to monitor. #6 Metabolic acidosis screening Bicarbonate: at goal Bicarbonate Therapy: Already on, no changes made Follow-up: [facility], 3 months documented in this encounter Plan of Treatment Not on filedocumented as of this encounter Results (ABNORMAL) Uric Acid (11/04/2021 9:07 AM CDT) P athologist Signature Uric Acid, P 9.7 (H) 3.7 - 8.0 11/04/2021 AUST mg/dL 5:09 PM CDT Specimen Anatomical Collection Method Collection Time Receive d Time (Source) Location / / Volume Laterality Blood (Blood, 11/04/2021 9:07 AM 11/05/19 4:39 Venous) CDT PM CDT William Mullins APRN.N.P., D.N.P. LAB BLOOD AD D-ON Performing Organization Address City/State/[facility] Code Phon e Number [facility]- [address] [place] [address] [facility] [place], [place] [address] [place] [address] (ABNORMAL) Cystatin C with Estimated GFR, S (11/04/2021 9:07 AM CDT) athologist Signature eGFR by 19 (L) >60 [...] 11/06/19 22 Venous) CDT 11:38 AM CDT William Mullins APRN.N.P., D.N.P. LAB BLOOD AD D-ON Performing Organization Address City/State/ZIP Code Phon e Number [facility] - [address] [place], [place] [address] [facility] [place] [address] Laboratories-[facility] [address] (ABNORMAL) Parathyroid Hormone (PTH) (11/04/2021 9:07 AM CDT) Analysis Performed At [facility] Time Signature Parathyroid 253 (H) 15 - 65 11/04/2021 AUST Hormone (PTH), S pg/mL 5:03 PM CDT Comment: Biotin has been identified by the lauryn esquedar as a potential interfering substance. Higher concentrations [...] Organization Address City/State/ZIP Code Phon e Number [facility]- [address] [place] [address] [facility] [place], [place] [address] [place] [address] (ABNORMAL) Renal Function Panel (11/04/2021 9:07 AM CDT) Analysis Performed At [facility] Time Signature Potassium, P 4.8 3.6 - [...] eGFR-Black/Afri 20 (L) >=60 11/04/2021 OW[facility] can [place] mL/min/BSA 11:43 AM CDT Comment: ----ADDITIONAL INFORMATION---- Estimated GFR calculated using the 2009 CKD_EPI creatinine equation. eGFR Non-Black/ 17 (L) >=60 mL/min/BSA 11/04/2021 11:43 AM CDT OW[facility] [place] Comment: ----ADDITIONAL INFORMATION---- Estimated GFR calculated using [...] 11/05/19 4:39 Venous) CDT PM CDT Narrative [facility] - 11/04/2021 5:09 PM CDT Specimen Information: Specimen ID: [id number] Specimen Type: Blood Specimen Collection Start Date: 11/05/19 ??9:07 AM Specimen Received Date: 11/04/2021 ??4:3 9 PM Specimen ID: [id number] Specimen Type: Blood Specimen Collection Start Date: 11/05/19 ??9:07 AM Specimen Received Date: 11/04/2021 11:03 AM Hui Delgado APRN C.N.P., D.N.P. LAB BLOOD AD D-ON Performing Organization Address City/State/ZIP Code Phon e Number [facility]- [address] [place] [address] [place] [address] System in [place] [address] [place] [address] [facility] [address] (ABNORMAL) CBC without Differential (11/04/2021 9:07 AM CDT) [facility] Method Time Signature Hemoglobin 11.5 (L) 13.2 [...] Organization Address City/State/ZIP Code Phon e Number [facility]- [address] [place] [address] [facility] [address] [place] [address] System in [place] [address] (ABNORMAL) Albumin, Random, Urine (11/04/2021 8:58 AM CDT) [facility] Method Time Signature Microalbumin 395.0 mg/L 11/04/2021 OWAT 12:11 PM CDT Creatinine 25 mg/dL 11/04/2021 OWAT 11:58 AM CDT Albumin/Creatinin 1580 (H) <17 mg/g 11/04/2021 OWAT e Ratio 12:11 PM CDT Specimen Anatomical Collection Method Collection Time Receive d Time (Source) Location / / Volume Laterality Urine (Urine, 11/04/2021 8:58 AM 11/05/19 Midstream) CDT 11:03 AM CDT Jennifer Mullins APRNNFeiPFei, Kylah.N.P. LAB URINE OR DERABLES Performing Organization Address City/State/ZIP Code Phon e Number [facility]- [address] [place] [address] [facility] [place] [address] System in [place] [address] (ABNORMAL) Urinalysis with Microscopic: Urine, Midstream (11/04/2021 [...] 8.0 11/04/2021 9:43 AM CDT FB60 Specific [place] 1.015 1.001 - 1.035 11/04/2021 9:43 AM [...] LAB URINE OR DERABLES Performing Organization Address City/[facility] Phon e Number [facility]- [address] [place] [address] [facility] [address] [place] [address] System in [address] Potassium (09/08/2021 11:33 AM CDT) P athologist Signature Potassium, P 4.6 3.6 - 5.2 09/08/2021 OW[facility] mmol/L 1:44 PM CDT Specimen Anatomical Collection Method Collection Time Receive d Time (Source) Location / / Volume Laterality Blood (Blood, 09/08/2021 11:33 09/08/2021 1:15 Venous) AM CDT PM CDT Hui Delgado APRN, C.N.P., D.N.P. LAB BLOOD AD D-ON Performing Organization Address City/[facility] Phon e Number [facility]- [address] [place] [address] [place] [address] System in [place] [address] (ABNORMAL) Creatinine with Estimated GFR (09/08/2021 11:33 AM CDT) Analysis Performed At Patho logist Time Signature Creatinine 3.21 (H) 0.74 - 09/08/2021 OWAT 1.35 mg/dL 1:44 PM CDT eGFR-Black/Afri 22 (L) >=60 09/08/2021 OWAT can [place] mL/min/BSA 1:44 PM CDT Comment: ----ADDITIONAL INFORMATION---- Estimated GFR calculated using the 2009 CKD_EPI creatinine equation. eGFR Non-Black/ 19 (L) >=60 mL/min/BSA 09/08/2021 1:44 PM CDT OW[facility] [place] Comment: ----ADDITIONAL INFORMATION---- Estimated GFR calculated using the 2009 CKD_EPI creatinine equation. Specimen Anatomical Collection Method Collection Time Receive d Time (Source) Location / / Volume Laterality Blood (Blood, 09/08/2021 11:33 09/08/2021 1:15 Venous) AM CDT PM CDT Hui Delgado APRN, C.N.P., D.N.P. LAB BLOOD AD D-ON Performing Organization Address City/State/ZIP Code Phon e Number [facility]- [address] [place] [address] [place] [address] System in [place] [address] documented in this encounter Visit Diagnoses Diagnosis Hypertension And Chronic Kidney Disease Stage 1 To 4 - Primary Chronic Kidney Disease Stage 4 Glomerula r Filtration Rate 15-29 (HCC) Hyperparathyroidism Secondary (HCC) Anemia Of Chronic Renal Disease Hypertension And Chronic Kidney Disease Stage 1 To 4 Chronic Kidney Disease Stage 4 Glomerula r Filtration Rate 15-29 (HCC) Hyperparathyroidism Secondary (HCC) Anemia Of Chronic Renal Disease documented in this encounter Additional Health Concerns Assessment Noted Time PHQ-9 Depression Total Score: 3 01/03/2018 10:38 AM CD T documented as of this encounter Care Teams Cash Application Representative Relationship Specialty Start Date End Date Elsewhere, Pcp PCP - General Family Medicine 01/29/20 documented as of this encounter
--- OUTSIDE RECORDS SUMMARY | 2022-03-16 12:20 | XMS_ITS | Encounter Summary ---
:1950 Author Organization [facility] Address [address] [place] [address] Care Team Providers Name Role Phone Elsewhere, Pcp Primary Care Provider Unavailable Reason for Referral Outpatient (Routine) - Closed Specialty Diagnoses / Procedures Referred By Contact Refer red To Contact Nephrology and Diagnoses Hypertension And Chronic Kidney Disease Stage 1 To 4 Hui Delgado [facility] Hypertension Maureen, JULIÁN C.N.P., D.N.P. [address] [place] [address] Referral ID Status Reason Start Date Expiration Date Visits Requ ested Visits Authorized [id number] Closed 09/11/2021 09/11/2022 1 1 Scheduling Instructions Check weight, fluid status, bp and bp mo nitor check Encounter Details Date Type Department Care Team Description 09/11/2021 Orders Only Division of Nephrology Toya Wu ypertension And and Hypertension in I., R.N. Chronic Kidney Disease [place], [place] [address] [place] [address] Stage 1 To 4 (Primary [address] [place] [address] [place]x) [place] [id number] [phone] Social History Tobacco Use Types Packs/Day Years [...] week 03/25/2021 How often do you attend jew or zoroastrian services? Never 03/25/2021 Do you belong to any clubs or organizations such as jew N o 03/25/2021 groups, unions, fraternal or [...] to sleep or slept in a senior care (including now)? Education Answer Date Recorded What is the highest level of school you have Some college, n o degree 03/24/2021 completed or the highest degree you have received? 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 eGFR Non-Black/ 19 (L) >=60 mL/min/BSA 09/24/2021 1:05 PM CDT OW[facility] [place] Comment: ----ADDITIONAL INFORMATION---- Estimated GFR calculated using [...] Laterality Blood (Blood, 09/24/2021 8:59 AM 09/25/19 Venous) CDT 10:[address] [facility] - 09/24/2021 4:22 PM CDT Specimen Information: Specimen ID: [id number] Specimen Type: Blood Specimen Collection Start Date: 09/25/19 ??8:59 AM Specimen Received Date: 09/24/2021 10:33 AM Specimen ID: [id number] Specimen Type: Blood Specimen Collection Start Date: 09/25/19 ??8:59 AM Specimen Received Date: 09/24/2021 ??3:3 1 PM Hui Delgado APRN C.N.P., D.N.P. LAB BLOOD AD D-ON Performing Organization Address City/State/ZIP Code Phon e Number [facility]- [address] [place] [address] [place] [address] System in [place] [address] [facility] [place] [address] [facility] [address] documented in this encounter Visit Diagnoses Diagnosis Hypertension And Chronic Kidney Disease Stage 1 To 4 - Primary Hypertension And Chronic Kidney Disease Stage 1 To 4 documented in this encounter Additional Health Concerns Assessment Noted Time PHQ-9 Depression Total Score: 3 01/03/2018 10:38 AM CD T documented as of this encounter Care Teams Inspector Aligning Relationship Specialty Start Date End Date Elsewhere, Pcp PCP - General Family Medicine 01/29/20 documented as of this encounter
--- OUTSIDE RECORDS SUMMARY | 2022-03-16 12:20 | XMS_ITS | Encounter Summary ---
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 LAB BLOOD AD D-ON Performing Organization Address City/[facility]/ZIP Code Phon e Number [facility]- [address] [place] [address] [facility] [place] [address] [facility] [address] (ABNORMAL) Cystatin C with Estimated GFR, S (08/24/2021 8:50 AM CDT) P athologist Signature eGFR by 20 (L) >60 08/25/2021 DTL Cystatin C mL/min/BSA 1:35 PM CDT Comment: Estimated GFR calculated using [...] lower with the new assay. Cystatin C 2.73 (H) 0.67 - 1.21 mg/L 08/25/2021 1:35 PM CDT DTL Specimen Anatomical Collection Method Collection Time Receive d Time (Source) Location / / Volume Laterality Blood (Blood, 08/24/2021 8:50 AM 08/26/19 1:17 Venous) CDT PM CDT Hui William Powell APRN.N.P., D.N.P. LAB BLOOD AD D-ON Performing Organization Address City/[facility]/ZIP Code Phon e Number [facility] - [address] [place], [place] [address] [facility] [place] [address] Laboratories-[facility] [address] (ABNORMAL) Parathyroid Hormone (PTH) (08/24/2021 8:50 AM CDT) Analysis Performed At Patho logist Time Signature Parathyroid 259 (H) 15 - 65 08/24/2021 AUST Hormone (PTH), S pg/mL 4:31 PM CDT Comment: Biotin has been identified by the lauryn currie as a potential interfering substance. ??Higher concentr ations of biotin may be found in multivitamins, hair/nail supple ments, and workout supplements. ??If the result does not ma tch clinical observations, repeat testing after patient refrains fr om the use of supplements for at least 12 hours. Specimen Anatomical Collection Method Collection Time Receive d Time (Source) Location / / Volume Laterality Blood (Blood, 08/24/2021 8:50 AM 08/25/19 3:55 Venous) CDT PM CDT Hui Reddy Jennifer Delgado APRNNFeiP., D.N.P. LAB BLOOD AD D-ON Performing Organization Address City/State/ZIP Code Phon e Number [facility]- [address] [place] [address] [facility] [place] [address] [facility] [address] (ABNORMAL) Renal Function Panel (08/24/2021 8:50 AM CDT) Analysis Performed At Patho logist Time Signature Potassium, P 4.7 3.6 - 5.2 08/24/2021 OW[place] mmol/L 11:42 AM CDT Sodium, P 138 135 - 145 08/24/2021 [place] mmol/L 11:42 AM CDT Chloride, P 102 98 - 107 08/24/2021 [place] mmol/L 11:42 AM CDT Bicarbonate, P 25 22 - 29 08/24/2021 [place] mmol/L 11:43 AM CDT Anion Gap, P 11 7 - 15 08/24/2021 [place] 11:42 AM CDT BUN (Blood Urea 52 (H) 8 - 24 08/24/2021 OW[place] Nitrogen), P mg/dL 11:43 AM CDT Creatinine 2.98 (H) 0.74 - 08/24/2021 OW[place] 1.35 mg/dL 11:43 AM CDT eGFR-Black/Afri 24 (L) >=60 08/24/2021 OWAT can [place] mL/min/BSA 11:43 AM CDT Comment: ----ADDITIONAL INFORMATION---- Estimated GFR calculated using the 2009 CKD_EPI creatinine equation. eGFR Non-Black/ 20 (L) >=60 mL/min/BSA 08/24/2021 11:43 AM CDT [place] Comment: ----ADDITIONAL INFORMATION---- Estimated GFR calculated using the 2009 CKD_EPI creatinine equation. Calcium, Total, P 8.1 (L) 8.8 - 10.2 mg/dL 08/24/2021 11:4 3 AM CDT [place] Glucose, P 110 70 - 140 mg/dL 08/24/2021 11:43 AM CDT [place] Albumin, P 3.6 3.5 - 5.0 g/dL 08/24/2021 11:43 AM CDT [place] Phosphorus (Inorganic), P 4.5 2.5 - 4.5 mg/dL 08/25/19 4:40 PM CDT AUST Specimen Anatomical Collection Method Collection Time Receive d Time (Source) Location / / Volume Laterality Blood (Blood, 08/24/2021 8:50 AM 08/25/19 3:55 Venous) CDT PM CDT Narrative [facility]- [facility] - 08/24/2021 4:40 PM CDT Specimen Information: Specimen ID: [id number] Specimen Type: Blood Specimen Collection Start Date: 08/25/19 ??8:50 AM Specimen Received Date: 08/24/2021 ??3:5 5 PM Specimen ID: [id number] Specimen Type: Blood Specimen Collection Start Date: 08/25/19 ??8:50 AM Specimen Received Date: 08/24/2021 10:51 AM Hui Delgado APRN, C.N.P., D.N.P. LAB BLOOD AD D-ON Performing Organization Address City/State/ZIP Code Phon e Number [facility]- [address] [place] [address] [place] [address] System in [place] [address] [place] [place] [address] [facility] [address] (ABNORMAL) CBC without Differential (08/24/2021 8:50 AM CDT) [facility] Method Time Signature Hemoglobin 11.3 (L) 13.2 - 08/24/2021 FB60 16.6 g/dL 9:05 AM CDT Hematocrit 34.3 (L) 38.3 - 08/24/2021 FB60 48.6 % 9:05 AM CDT Erythrocytes 3.59 (L) 4.35 - 08/24/2021 FB60 5.65 9:05 AM CDT x10(12)/L MCV 95.5 78.2 - 08/24/2021 FB60 97.9 fL 9:05 AM CDT RBC Distrib Width 14.0 11.8 - 08/24/2021 FB60 14.5 % 9:05 AM CDT Platelet Count 214 135 - 317 08/24/2021 FB60 x10(9)/L 9:05 AM CDT Leukocytes 16.4 (H) 3.4 - 9.6 08/24/2021 FB60 x10(9)/L 9:05 AM CDT Specimen Anatomical Collection Method Collection Time Receive d Time (Source) Location / / Volume Laterality Blood (Blood, 08/24/2021 8:50 AM 08/25/19 8:52 Venous) CDT AM CDT Hui Delgado APRN, C.N.P., D.N.P. LAB BLOOD AD D-ON Performing Organization Address City/State/ZIP Code Phon e Number [address] [place], [place] [id number] [place] [address] LAB FB60 [place] [address] [address] documented in this encounter Visit [...] documented as of this encounter Care Teams Distillery Worker General Relationship Specialty Start Date End Date Elsewhere, Pcp PCP - General Family Medicine 01/29/20 documented as of this encounter
--- OUTSIDE RECORDS SUMMARY | 2022-03-16 12:20 | XMS_ITS | Encounter Summary ---
:1950 Author Organization [facility] Address [address] [place] [address] Care Team Providers Name Role Phone Elsewhere, Pcp Primary Care Provider Unavailable Encounter Details Date Type Department Care Team Description 09/08/2021 [facility] Laboratory Medicine Hui Reddy APRN, Diseas e Stage 4 in Jacqueline, C.N.P., D.N.P. Glomerular [place] Filtration Rate [address] 15-29 (HCC) [facility] [place] [id number] Social History Tobacco Use Types Packs/Day Years [...] week 03/25/2021 How often do you attend taoism or worship services? Never 03/25/2021 Do you belong to any clubs or organizations such as taoism N o 03/25/2021 groups, unions, fraternal or [...] place to sleep or slept in a nursing home (including now)? Education Answer Date Recorded What is the highest level of school you have Some college, n o degree 03/24/2021 completed or the highest degree you have received? 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 15-29 (HCC) CREATININE WITH Routine 09/08/2021 11:33 AM Chronic Kidney Res ults for this EGFR, S/P CDT Disease Stage 4 procedure ar e in Glomerular the results Filtration Rate section. 15 (HCC) documented in this encounter Results Potassium (09/08/2021 11:33 AM CDT) P athologist Signature Potassium, P 4.6 3.6 - 5.2 09/08/2021 [place] mmol/L 1:44 PM CDT Specimen Anatomical Collection Method Collection Time Receive d Time (Source) Location / / Volume Laterality Blood (Blood, 09/08/2021 11:33 09/08/2021 1:15 Venous) AM CDT PM CDT William Mullins APRN.N.P., D.N.P. LAB BLOOD AD D-ON Performing Organization Address City/State/[facility] Phon e Number [facility]- [address] [place] [address] [place] [address] System in [place] [address] (ABNORMAL) Creatinine with Estimated GFR (09/08/2021 11:33 AM CDT) Analysis Performed At Patho logist Time Signature Creatinine 3.21 (H) 0.74 - 09/08/2021 [place] 1.35 mg/dL 1:44 PM CDT eGFR-Black/Afri 22 (L) >=60 09/08/2021 [place] can [place] mL/min/BSA 1:44 PM CDT Comment: ----ADDITIONAL INFORMATION---- Estimated GFR calculated using the 2009 CKD_EPI creatinine equation. eGFR Non-Black/ 19 (L) >=60 mL/min/BSA 09/08/2021 1:44 PM CDT [place] Comment: ----ADDITIONAL INFORMATION---- Estimated GFR calculated using the 2009 CKD_EPI creatinine equation. Specimen Anatomical Collection Method Collection Time Receive d Time (Source) Location / / Volume Laterality Blood (Blood, 09/08/2021 11:33 09/08/2021 1:15 Venous) AM CDT PM CDT William Mullins APRN.N.P., D.N.P. LAB BLOOD AD D-ON Performing Organization Address City/State/ZIP Code Phon e Number [facility]- [address] [place] [address] [place] [address] System in [place] [address] documented in this encounter Visit Diagnoses Diagnosis Chronic Kidney Disease Stage 4 Glomerula r Filtration Rate 15-29 (HCC) documented in this encounter Additional Health Concerns Assessment Noted Time PHQ-9 Depression Total Score: 3 01/03/2018 10:38 AM CD T documented as of this encounter Care Teams Gas Plant Technician Relationship Specialty Start Date End Date Elsewhere, Pcp PCP - General Family Medicine 01/29/20 documented as of this encounter
--- OUTSIDE RECORDS SUMMARY | 2022-03-16 12:20 | XMS_ITS | Encounter Summary ---
:1950 Author Organization [facility] Address [address] [place] [address] Care Team Providers Name Role Phone Elsewhere, Pcp Primary Care Provider Unavailable Reason for Visit Reason Comments lab results and patient update Encounter Details Date Type Department Care Team Description 09/08/2021 Clinical Communication Division of sarah Arthur and Nephrology and Mallika Narayanan R.N. patient update Hypertension in [address] [place] [address] [address] [facility] [phone] Social History Tobacco Use Types Packs/Day Years [...] How often do you attend pentecostal or anabaptism services? Never 03/25/2021 Do you belong to [...] place to sleep or slept in a chcf (including now)? Education Answer Date Recorded What is the highest level of school you have Some college, n o degree 03/24/2021 completed or the highest degree you have received? 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 - 09/09/2021 9:02 AM CDT Yes, less coffee more water. Offer RN visit for weight, fluid status, BP and a renal panel. Hui Telephone Encounter - Mallika Arthur R.N. - 09/08/2021 2:15 PM CDT SUBJECTIVE CHIEF COMPLAINT / REASON FOR CALL lab results and patient update Information Discussed At recent CKD appointment, Hui Delgado, NICOLE increased patient's furosemide from 20 mg daily to 40 mg daily. Patient had repeat labs today and creatinine has increased from 2.98 to 3.21. I contacted patient for an update. Patient reports that the lower extremity edema has not improved with the increased dose of furosemide. Reports having bilateral pitting edema to his knees. He is not to home now, so is unable to provide me his exact blood pressure readings, but states he has not had any systolic readings greater than 140. He does not check daily weights. Denies shortness of breath. States he drinks 12 cups of caffeinated coffee daily along with 2 bottles of water. PLAN Disposition/Recommendation: Will review with Hui and contact patient with her recommendations. I did suggest that he drink less coffee and drink more water. Information/Education: patient/caller able to teach back Caller agreeable to plan of care: yes The following references were used: Provider advice and clinical nursing judgement. Telephone Encounter - Mallika Arthur R.N. - 09/08/2021 2:07 PM CDT ----- Message from Hui Delgado APRN, C.NChucho, D.N.P. sent at 09/08/2021 2:04 PM CDT ----- After increasing the Lasix his kidney function is worse. What is his swelling and Bps like? Has he been drinking fluid? I think he should probably go back to the previous Lasix dose but worried that he will be hypertensive and regain the fluid. Hui ----- Message ----- From: Cameron Ardon In [facility] [id number] Sent: 09/08/2021 1:45 PM CDT To: Hui Delgado APRN, C.N.Xi, D.N.P. documented in this encounter Plan of Treatment Not on filedocumented as of this encounter Visit Diagnoses Not on filedocumented in this encounter Additional Health Concerns Assessment Noted Time PHQ-9 Depression Total Score: 3 01/03/2018 10:38 AM CD T documented as of this encounter Care Teams Primary Care Nurse Relationship Specialty Start Date End Date Elsewhere, Pcp PCP - General Family Medicine 01/29/20 documented as of this encounter
--- OUTSIDE RECORDS SUMMARY | 2022-03-16 12:21 | XMS_ITS | Encounter Summary ---
:1950 Author Organization [facility] Address [address] [place] [address] Care Team Providers Name Role Phone Elsewhere, Pcp Primary Care Provider Unavailable Reason for Visit Reason Comments Labs Only-outside labs Encounter Details Date Type Department Care Team Description 03/24/2021 Clinical Communication Division of Abbey Kruse Labs Only-outside Nephrology and M, R.N. labs Hypertension in [address] [place] [address] [facility] [phone] Social History Tobacco Use Types Packs/Day Years [...] How often do you attend christian or caodaism services? Never 03/25/2021 Do you belong to [...] place to sleep or slept in a halfway (including now)? Education Answer Date Recorded What is the highest level of school you have Some college, n o degree 03/24/2021 completed or the highest degree you have received? 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 - 03/24/2021 4:19 PM CST Labs completed at: [facility] Fax: Date Collected 03/18/21 02/25/21 CBC Hemoglobin WBC Platelets Absolute Neutrophils Chem Panel Sodium Potassium 5.6 5.5 Chloride Creatinine 3.0 BUN CO2 23 Glucose HgbA1C Calcium 8.0 Phosphorus Uric Acid PTH Albumin Liver Function AST Alk Phosphatase Total Bili Urine Studies Microalbuminuria Random 24 hour urine protein Protein-creatinine ratio Albumin-creatinine ratio Total Urine Volume Other test COMPANY MANAGER documented in this encounter Plan of Treatment Not on filedocumented as of this encounter Visit Diagnoses Not on filedocumented in this encounter Additional Health Concerns Assessment Noted Time PHQ-9 Depression Total Score: 3 01/03/2018 10:38 AM CD T documented as of this encounter Care Teams Flame Channeler Relationship Specialty Start Date End Date Elsewhere, Pcp PCP - General Family Medicine 01/29/20 documented as of this encounter
--- OUTSIDE RECORDS SUMMARY | 2022-03-16 12:21 | XMS_ITS | Encounter Summary ---
:1950 Author Organization [facility] Address [address] [place] [address] Care Team Providers Name Role Phone Elsewhere, Pcp Primary Care Provider Unavailable Reason for Visit Outpatient (Routine) - Closed Specialty Diagnoses / Procedures Referred By Contact Refer red To Contact Nutrition Diagnoses Chronic Kidney Disease Stage 4 Glomerular Filtration Rate 15-29 (HCC) [facility] C.N.P., D.N.P. [address] [place] [phone] Referral ID Status Reason Start Date Expiration Date Visits Requ ested Visits Authorized [id number] Closed 03/26/2021 03/26/2022 1 1 Encounter Details Date Type Department Care Team Description 04/08/2021 Virtual Visit Department of Celeste Hussein APRN, C.N.P., D.N.P. [address] [place] [phone] Chronic Kidney Nutrition in Bere Alvarez M.S., RDN, LD Disease Stage 4 [place], [place] Glomerular Filtration [address] [facility] Rate 15-29 (HCC) [place] [phone] Social History Tobacco Use Types Packs/Day Years [...] week 03/25/2021 How often do you attend mandaen or yazdanism services? 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 Consult conducted via real- time audio technology by Maritza Alvarez, MS, OWEN, LD in [facility] to the patient's home. ASSESSMENT Relevant Social and Family History Patient lives with his spouse. They grocery shop together. Patient does most of the cooking at home. Food/Nutrition Related History Previous diet experience: Patient visited with a dietitian for diabetes and heart health I spring. Diet recall: Breakfast: light - maybe just a sweet roll and black coffee Morning snack: Lunch: maybe a sandwich with meat and cheese - milk or coffee Afternoon snack: maybe few chips Evening meal: balanced meals with burger (8 ounce portion), baked or boiled potatoes and gravy, maybe a vegetable Bedtime snack: Includes a variety of fruit throughout the week. Beverage choices: water, coffee, milk Salt/Seasoning use: patient has not been mindful of sodium intake Weight History Date: 04/08/21 Weight: Wt 84.4 kg kg Body mass index is Body mass index is 27.56 kg/m??.. Estimation of Nutritional Needs Weight Used for Equation Calculations: 84.4 kg Date: 02/10/2021 Estimation of Nutritional Needs PROTEIN Weight:84.4 kg (actual body weight) Protein Range: 0.8 - 1 grams/kg Protein Goal: 68 to 84 grams per day Method to Estimate Energy Needs: [place] BEE (Basal): 1637 HB Adjusted: 1801 Total Calorie Needs: 8410-0473 calories NUTRITION DIAGNOSIS Food- and nutrition-related knowledge deficit related to no prior exposure to specific nutritional guidelines for chronic kidney disease as evidenced by questions asked. Nutrition Prescription/Recommendation 7052-0022 mg sodium, 65-75 grams protein, low potassium INTERVENTION Education: Discussed the importance of a kidney friendly diet low in sodium, adequate without excessive protein along with low potassium intake. MONITORING AND EVALUATION: Nutrition parameter to monitor: Food intake Desired Outcome: Maintain nutrition related lab values within target range Patient Goal(s): 1. 2102-2363 mg sodium 2. 65-75 gm protein 3. Select lower potassium foods most often 4. Avoid processed food FOLLOW UP PLAN: Encouraged follow up questions via patient online services. Time spent with patient (minutes): 30 DEALER documented in this encounter Plan of Treatment Not on filedocumented as of this encounter Visit Diagnoses Diagnosis Chronic Kidney Disease Stage 4 Glomerula r Filtration Rate 15-29 (HCC) documented in this encounter Additional Health Concerns Assessment Noted Time PHQ-9 Depression Total Score: 3 01/03/2018 10:38 AM CD T documented as of this encounter Care Teams Management Trainer Relationship Specialty Start Date End Date Elsewhere, Pcp PCP - General Family Medicine 01/29/20 documented as of this encounter
--- OUTSIDE RECORDS SUMMARY | 2022-03-16 12:21 | XMS_ITS | Encounter Summary ---
:1950 Author Organization [facility] Address [address] [place] [address] Care Team Providers Name Role Phone Elsewhere, Pcp Primary Care Provider Unavailable Reason for Visit Appointment Request (Routine) - Closed Specialty Diagnoses / Procedures Referred By Contact Refer red To Contact Nephrology and Hypertension Referral ID Status Reason Start Date Expiration Date Visits Requ ested Visits Authorized [id number] Closed 05/22/2021 05/22/2022 1 1 Encounter Details Date Type Department Care Team Description 05/27/2021 External Division of [facility] Chronic Kidney Disease Stage 4 Glomerular Filtration Rate 15-29 (HCC) (Primary Dx); Outreach Nephrology and , Hui Reddy, Anemia Of Chr onic Renal Disease; Hypertension in [employer], 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 (HCC); [place], [place] C.N.P., Hyperparathyroidism Secondar y (HCC); [address] [facility] D.N.P. 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 Never 03/25/2021 Do you belong to any clubs or organizations such as adventism N o 03/25/2021 groups, unions, fraternal or [...] place to sleep or slept in a jail (including now)? Education Answer Date Recorded What is the highest level of school you have Some college, n o degree 03/24/2021 completed or the highest degree you have received? 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 - 05/27/2021 10:00 AM CST Subjective: Patient is being seen in the CKD clinic out reach at [place]. History of Present Illness: Mr. Walton is a 71 y.o. male who presents for ongoing evaluation of chronic kidney disease. He was last seen in the CKD Clinic March 25, 2021 via video visit. At that appointment they discussed him having ESRD treatment option class and a dietitian appointment. Patient refused kidney transplant referral. He has stage 4 chronic kidney disease likely secondary to diabetes and hypertension. When he was seen in January we discussed the credence trial and I sent a message to his primary care physician asking to potentially start Dapagliflozin. It is not listed on his med list and it appears that his kidney function has worsened down to a GFR less than 25 since that visit. He returns today and reports he is feeling well and denies any signs or symptoms of uremia. He does report worsening of his lower extremity edema. He has compression socks but does not wear them as they are too uncomfortable. He has eliminated salt from his diet. He continues to eat a very high protein diet of about 24 ounces of meat a day. Review of Systems Cardiovascular: Positive for swelling in the legs or feet. Negative for chest pain, pressure or tightness. The following systems were negative: Constitutional, Respiratory, GI, , Neuro Objective: Constitutional Appearance: He is well-developed. Cardiovascular Rate and Rhythm: Normal rate and regular rhythm. Heart sounds: Normal heart sounds. No murmur heard. Pulmonary Effort: Pulmonary effort is normal. No respiratory distress. Breath sounds: Normal breath sounds. No wheezing. Musculoskeletal Right lower le+ Pitting Edema present. Left lower le+ Pitting Edema present. Skin General: Skin is warm and dry. Neurological Mental Status: He is alert and oriented to person, place, and time. Psychiatric Behavior: Behavior normal. Thought Content: Thought content normal. Judgment: Judgment normal. Vitals: 05/27/21 1228 BP: 110/62 Pulse: 79 Assessment/Plan: Hgb 11.1, Sodium 137, K 4.7, HCO3 23, BUN 36, Creat 2.54, eGFR 24, Calcium 7.8, Phosphorus 4.3, Albumin 3.8, Cystatin C 2.79, eGFR 19, PTH 260, %sat , iron 58, ferritin 120, UAE 1523 #1 Chronic kidney Disease (CKD) stage 4, likely secondary to diabetes and hypertension GFR is 24 mL/min. BUN is 36 mg/dL. He does not display signs of uremia today. Signs and symptoms ofuremia reviewed today. He was encouraged to limit his protein (meat) intake to no more than 6 ouncesa day. #2 CKD treatment options Kidney Transplant:Not transplant candidate due to: Patient is not interested in kidney transplant referral, I also do not think he would qualify for a transplant given his comorbidities. Dialysis Plan: He had options education on 04/08/21. He states as of right now he does not think hewants to do dialysis when his kidneys fail. He does not know for sure but he does not think he will.I think that he would benefit from a palliative consult in the future. For now I advised to continuethis discussion. #3 Hypertension Blood pressure in clinic looks great however he complains of lower edema. I think we could try decreasing his Norvasc from 10 mg daily to 5 mg daily to see if this helps. If he should start to get blood pressures >120/80 we could increase his Lasix to 40 mg daily. If decreasing the Norvasc does nothelp the edema or helps a little we could consider stopping it and increasing his diuretic. I will send him a portal message in 2 weeks. He will start checking his pressures at home daily. #4 Anemia of CKD Although hemoglobin is low at 11.1 grams/deciliter it is at goal for stage 4 chronic kidney disease with a goal of greater than 10 grams/deciliter. He is not on any GOLD therapy. Ferritin 120% saturation 26. Goal for chronic kidney disease is ferritin greater than 200% saturation greater than 20%. Given that his hemoglobin is satisfactory we will continue to monitor at this time. Continue oral iron. #5 Hyperparathyroidism, renal secondary Calcium: not at goal, hypocalcemic without symptoms. Check Vitamin D levels next week with repeat calcium. Phosphorus: at goal Phosphate Binder: Not needed Parathyroid Hormone: 260 will continue to monitor and he will get his vitamin-D level next week. He is currently taking ergocalciferol 64019 Units a week. #6 Metabolic acidosis screening Bicarbonate: at goal Bicarbonate Therapy: Not needed Follow-up: [facility], 3 months ER documented in this encounter Plan of Treatment Not on filedocumented as of this encounter Results (ABNORMAL) Uric Acid (08/24/2021 [...] Organization Address City/State/ZIP Code Phon e Number [facility]- [address] [place] [address] [facility] [place] [address] [facility] [address] (ABNORMAL) Cystatin [...] 08/26/19 1:17 Venous) CDT PM CDT Hui Delgado APRN, C.N.P., D.N.P. LAB BLOOD AD D-ON Performing Organization Address City/State/ZIP Code Phon e Number [facility] - [address] [place], [place] [address] [facility] [place] [address] Laboratories-[facility] [address] (ABNORMAL) [...] supplements. ??If the result does not [facility] clinical observations, repeat testing after patient refrains fr om the use of supplements for at least 12 hours. Specimen Anatomical Collection Method Collection Time Receive d Time (Source) Location / / Volume Laterality Blood (Blood, 08/24/2021 8:50 AM 08/25/19 3:55 Venous) CDT PM CDT Hui Reddy Sandy GALLEGO C.N.P., Kylah.NFeiP. LAB BLOOD AD D-ON Performing Organization Address City/State/ZIP Code Phon e Number [facility]- [address] [place] [address] [facility] [place] [address] [facility] [address] (ABNORMAL) Renal [...] eGFR-Black/Afri 24 (L) >=60 08/24/[address] [place] mL/min/BSA 11:43 AM CDT Comment: ----ADDITIONAL INFORMATION---- Estimated GFR calculated using the 2009 CKD_EPI creatinine equation. eGFR Non-Black/ 20 (L) >=60 mL/min/BSA 08/24/2021 11:[address] [place] Comment: ----ADDITIONAL INFORMATION---- Estimated GFR calculated using [...] 08/25/19 3:55 Venous) CDT PM CDT Narrative [facility] - 08/24/2021 4:40 PM CDT Specimen Information: Specimen ID: [id number] Specimen Type: Blood Specimen Collection Start Date: 08/25/19 ??8:50 AM Specimen Received Date: 08/24/2021 ??3:5 5 PM Specimen ID: [id number] Specimen Type: Blood Specimen Collection Start Date: 08/25/19 ??8:50 AM Specimen Received Date: 08/24/2021 10:51 AM Hui Delgado APRN, C.N.P., D.N.P. LAB BLOOD AD D-ON Performing Organization Address City/State/ZIP Code Phon e Number [facility]- [address] [place] [address] [place] [address] System in [place] [address] [place] [address] [facility] [address] (ABNORMAL) CBC without Differential (08/24/2021 8:50 AM CDT) [facility] gist Method Time Signature Hemoglobin 11.3 (L) 13.2 [...] LAB BLOOD AD D-ON Performing Organization Address City/[facility] Phon e Number [address] [place] [address] [facility] [address] [place] [address] [address] (ABNORMAL) Albumin, Random, Urine (08/24/2021 8:46 AM CDT) [facility] gist Method Time Signature Microalbumin 1117.0 mg/L [...] LAB URINE OR DERABLES Performing Organization Address City/[facility] Code Phon e Number [facility]- [address] [place] [address] [place] [address] System in [place] [address] (ABNORMAL) Urinalysis with Microscopic: Urine, Midstream (08/24/2021 [...] 8.0 08/24/2021 9:06 AM CDT FB60 Specific [place] 1.020 1.001 - 1.035 08/24/2021 9:06 AM [...] LAB URINE OR DERABLES Performing Organization Address City/[facility]/ZIP Code Phon e Number [facility]- [address] [place] [address] [facility] [address] [place] [address] System in [place] [address] (ABNORMAL) Calcium, Ionized (05/28/2021 2:27 PM FUDGER) athologist Signature Calcium, 4.13 (L) 4.57 - 05/29/2021 DTL Ionized, S 5.43 mg/dL 7:46 AM FUDGER Comment: ----ADDITIONAL INFORMATION---- This test has been modified from the man ufacturer's instructions. Its performance characteri stics were determined by [facility] in a manner co nsistent with CLIA requirements. This test has not bee n cleared or approved by the U.S. Food and Drug Admin istration. pH for Ionized Calcium 7.30 (L) 7.35 - 7.48 05/29/2021 7:46 AM FUDGER DTL Specimen Anatomical Collection Method Collection Time Receive d Time (Source) Location / / Volume Laterality Blood (Blood, 05/28/2021 2:27 PM 05/29/19 7:24 Venous) FUDGER AM FUDGER Hui Delgado APRN, C.N.P., D.N.P. LAB BLOOD NO N ADD-ON Performing Organization Address City/[facility] Code Phon e Number [facility] - [address] [place], [place] [address] [facility] [place] [address] Laboratories-[facility] [address] [facility] (ABNORMAL) Calcium, Total (05/28/2021 2:27 PM FUDGER) athologist Signature Calcium, 7.6 (L) 8.8 - 10.2 05/28/2021 [place] Total, P mg/dL 4:12 PM FUDGER Specimen Anatomical Collection Method Collection Time Receive d Time (Source) Location / / Volume Laterality Blood (Blood, 05/28/2021 2:27 PM 05/28/19 3:44 Venous) FUDGER PM FUDGER Hui Delgado APRN, C.N.P., D.N.P. LAB BLOOD AD D-ON Performing Organization Address City/State/ZIP Code Phon e Number [facility]- [address] [place] [address] [place] [address] System in [place] [address] 1,25-Dihydroxyvitamin D (05/28/2021 2:27 PM FUDGER) Patholo gist Method Time Signature 1, 25 20 18 - 64 06/02/2021 [facility] DIHYDROXYVITAMIN D, pg/mL 10:50 AM FUDGER S Comment: ----ADDITIONAL INFORMATION---- This test was developed and its performa nce characteristics determined by [facility] in a manner consistent with CLIA requirements. This test has not been cleared or approved by the [place] and Drug Administration. Specimen Anatomical Collection Method Collection Time Receive d Time (Source) Location / / Volume Laterality Blood (Blood, 05/28/2021 2:27 PM 05/29/19 7:41 Venous) FUDGER AM FUDGER Hui Delgado APRN, C.N.P., D.N.P. LAB BLOOD AD D-ON Performing Organization Address City/State/ZIP Code Phon e Number [facility] [address] [place], [place] [address] [place], [place] [address] [address] Laboratory Medicine and Pathology [address] [place] 25-Hydroxyvitamin D2 and D3 (05/28/2021 2:27 PM FUDGER) P athologist Signature 25-Hydroxy D2 28 ng/mL 05/30/2021 [facility] 11:19 AM FUDGER 25-Hydroxy D3 4.3 ng/mL 05/30/2021 [facility] 11:19 AM FUDGER 25-Hydroxy D 32 ng/mL 05/30/2021 [facility] Total 11:19 AM FUDGER Comment: ----REFERENCE VALUE---- 25-HYDROXY D TOTAL (D2+D3) Optimum level s in the healthy population are 20-50, patients with bone disease may benefit from higher levels within this r vanesa. ----ADDITIONAL INFORMATION---- This test was developed and its performa nce characteristics determined by [facility] in a manner consistent with CLIA requirements. This test has not been cleared or approved by the [place] and Drug Administration. Specimen Anatomical Collection Method Collection Time Receive d Time (Source) Location / / Volume Laterality Blood (Blood, 05/28/2021 2:27 PM 05/29/19 22 7:17 Venous) FUDGER AM FUDGER Hui Delgado Jennifer GALLEGONChucho, D.N.P. LAB BLOOD AD D-ON Performing Organization Address City/State/ZIP Code Phon e Number [facility] [address] [place], [place] [address] [facility] [place] [address] Laboratory Medicine and Pathology [address] 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
--- OUTSIDE RECORDS SUMMARY | 2022-03-16 12:21 | XMS_ITS | Encounter Summary ---
:1950 Author Organization [facility] Address [address] [place] [address] Care Team Providers Name Role Phone Elsewhere, Pcp Primary Care Provider Unavailable Encounter Details Date Type Department Care Team Description 06/01/2021 Orders Only Division of Nephrology Wellalfredoitter, Janel rtensive Chronic and Hypertension, Hui Reddy APRN, [facility], in C.N.P., D.N.P. Stage 3b Glomerular [place], [place] Filtration Rate (GFR) [address] [facility] 30 To 44 (HCC) (Primary [place], [place] Dx) [id number] Social History Tobacco Use Types Packs/Day Years [...] week 03/25/2021 How often do you attend shinto or gnosticist services? Never 03/25/2021 Do you belong to any clubs or organizations such as shinto N o 03/25/2021 groups, unions, fraternal or [...] place to sleep or slept in a [facility] (including now)? Education Answer Date Recorded What is the highest level of school you have Some college, n o degree 03/24/2021 completed or the highest degree you have received? 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 LAB BLOOD AD D-ON Performing Organization Address City/State/ZIP Code Phon e Number [facility]- [address] [place] [address] [place] [address] System in [place] [address] documented in this encounter Visit Diagnoses Diagnosis Hypertensive Chronic Kidney Disease (CKD ) Stage 3b Glomerular Filtration Rate (GFR) 30 To 44 (HCC) - Primary documented in this encounter Additional Health Concerns Assessment Noted Time PHQ-9 Depression Total Score: 3 01/03/2018 10:38 AM CD T documented as of this encounter Care Teams [employer] Relationship Specialty Start Date End Date Elsewhere, Pcp PCP - General Family Medicine 01/29/20 documented as of this encounter
--- OUTSIDE RECORDS SUMMARY | 2022-03-16 12:21 | XMS_ITS | Encounter Summary ---
:[address] 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 Never 03/25/2021 Do you belong to any clubs or organizations such as amish N o 03/25/2021 groups, unions, fraternal or [...] place to sleep or slept in a intermediate (including now)? Education Answer Date Recorded What is the highest level of school you have Some college, n o degree 03/24/2021 completed or the highest degree you have received? 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 carvediloL (COREG) 25 mg Take 2 tablets [...] mouth [address] capsule every evening. pen needle, diabetic 31 Inject 1 Injection [...] Name Priority Date/Time Associated Diagnosis Comme nts 1,25-DIHYDROXYVITAM Routine 05/28/2021 2:27 PM Anemia Of Chron ic Results for this IN D, S GARDEN TRACTOR MECHANIC Renal Disease procedure are in Hypertension And the results Chronic Kidney section. 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 ) Chronic Kidney Disease Stage 4 Glomerular Filtration Rate 15-29 (HCC) 25-HYDROXYVITAMIN Routine 05/28/2021 2:27 PM Anemia Of Chronic Results for this D2 AND D3, S GARDEN TRACTOR MECHANIC Renal Disease procedure are in Hypertension And the results Chronic Kidney section. 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 ) Chronic Kidney Disease Stage 4 Glomerular Filtration Rate 15- (HCC) CALCIUM, IONIZED, Routine 05/28/2021 2:27 PM Chronic Kidney Re sults for this S/B GARDEN TRACTOR MECHANIC Disease Stage 4 procedure ar e in Glomerular the results Filtration Rate section. 15- (HCC) CALCIUM, TOT, S/P Routine 05/28/2021 2:27 PM Chronic Kidney Re sults for this GARDEN TRACTOR MECHANIC Disease Stage 4 procedure ar e in Glomerular the results Filtration Rate section. (HCC) documented in this encounter Results (ABNORMAL) Calcium, Ionized (05/28/2021 2:27 PM GARDEN TRACTOR MECHANIC) athologist Signature Calcium, 4.13 (L) 4.57 - 05/29/2021 DTL Ionized, S 5.43 mg/dL 7:46 AM GARDEN TRACTOR MECHANIC Comment: ----ADDITIONAL INFORMATION---- This test has been modified from the man ufacturer's instructions. Its performance characteri stics were determined by [facility] in a manner co nsistent with CLIA requirements. This test has not bee n cleared or approved by the U.S. Food and Drug Admin istration. pH for Ionized Calcium 7.30 (L) 7.35 - 7.48 05/29/2021 7:46 AM GARDEN TRACTOR MECHANIC DTL Specimen Anatomical Collection Method Collection Time Receive d Time (Source) Location / / Volume Laterality Blood (Blood, 05/28/2021 2:27 PM 05/29/19 7:24 Venous) GARDEN TRACTOR MECHANIC AM GARDEN TRACTOR MECHANIC Hui Delgado APRN, C.N.P., D.N.P. LAB BLOOD NO N ADD-ON Performing Organization Address City/State/ZIP Code Phon e Number [facility] - [address] [place], [place] [address] [facility] [place] [address] Laboratories-[facility] [address] (ABNORMAL) Calcium, Total (05/28/2021 2:27 PM GARDEN TRACTOR MECHANIC) athologist Signature Calcium, 7.6 (L) 8.8 - 10.2 05/28/2021 OW[place] Total, P mg/dL 4:12 PM GARDEN TRACTOR MECHANIC Specimen Anatomical Collection Method Collection Time Receive d Time (Source) Location / / Volume Laterality Blood (Blood, 05/28/2021 2:27 PM 05/28/19 22 3:44 Venous) GARDEN TRACTOR MECHANIC PM GARDEN TRACTOR MECHANIC Hui Delgado APRN, C.N.P., D.N.P. LAB BLOOD AD D-ON Performing Organization Address City/State/ZIP Code Phon e Number [facility]- [address] [place] [address] [place] [address] System in [place] [address] 1,25-Dihydroxyvitamin D (05/28/2021 2:27 PM GARDEN TRACTOR MECHANIC) [facility] Method Time Signature 1, 25 18 - 64 06/02/2021 [facility] DIHYDROXYVITAMIN D, pg/mL 10:50 AM GARDEN TRACTOR MECHANIC S Comment: ----ADDITIONAL INFORMATION---- This test was developed and its performa nce characteristics determined by [facility] in a manner consistent with CLIA requirements. This test has not been cleared or approved by the [place] and Drug Administration. Specimen Anatomical Collection Method Collection Time Receive d Time (Source) Location / / Volume Laterality Blood (Blood, 05/28/2021 2:27 PM 05/29/19 22 7:41 Venous) GARDEN TRACTOR MECHANIC AM GARDEN TRACTOR MECHANIC Hui Maureen Delgado APRN, C.N.P., D.N.P. LAB BLOOD AD D-ON Performing Organization Address City/State/ZIP Code Phon e Number [facility] [address] [address] [place], [place] [address] [facility] [address] Laboratory Medicine and Pathology [address] RAIN 25-Hydroxyvitamin D2 and D3 (05/28/2021 2:27 PM GARDEN TRACTOR MECHANIC) P athologist Signature 25-Hydroxy D2 28 ng/mL 05/30/2021 SDS 11:19 AM GARDEN TRACTOR MECHANIC 25-Hydroxy D3 4.3 ng/mL 05/30/2021 SDSC 11:19 AM GARDEN TRACTOR MECHANIC 25-Hydroxy D 32 ng/mL 05/30/2021 SDS Total 11:19 AM GARDEN TRACTOR MECHANIC Comment: ----REFERENCE VALUE---- 25-HYDROXY D TOTAL (D2+D3) Optimum level s in the healthy population are 20-50, patients with bone disease may benefit from higher levels within this r vanesa. ----ADDITIONAL INFORMATION---- This test was developed and its performa nce characteristics determined by [facility] in a manner consistent with CLIA requirements. This test has not been cleared or approved by the [place] and Drug Administration. Specimen Anatomical Collection Method Collection Time Receive d Time (Source) Location / / Volume Laterality Blood (Blood, 05/28/2021 2:27 PM 05/29/19 7:17 Venous) GARDEN TRACTOR MECHANIC AM GARDEN TRACTOR MECHANIC Hui Delgado APRN C.N.P., D.N.P. LAB BLOOD AD D-ON Performing Organization Address City/State/ZIP Code Phon e Number [facility] [address] [place], [place] [address] SUPPORT [facility] [place] [address] Laboratory Medicine and Pathology [address] [...] documented as of this encounter Care Teams Agricultural Research Engineer Relationship Specialty Start Date End Date Elsewhere, Pcp PCP - General Family Medicine 01/29/20 documented as of this encounter
--- OUTSIDE RECORDS SUMMARY | 2022-03-16 12:21 | XMS_ITS | Encounter Summary ---
:1950 Author Organization [facility] Address [address] [place] [address] Care Team Providers Name Role Phone Elsewhere, Pcp Primary Care Provider Unavailable Reason for Visit Reason Comments Labs Only Encounter Details Date Type Department Care Team Description 06/16/2021 Clinical Communication Division of Nephrology Edie Aguilar, Labs Only and Hypertension in [place], [place] [address] [facility] [address] [place] [phone] Social History Tobacco Use Types Packs/Day Years [...] week 03/25/2021 How often do you attend restorationism or rastafarian services? Never 03/25/2021 Do you belong to any clubs or organizations such as restorationism N o 03/25/2021 groups, unions, fraternal or [...] at Date Recorded Male 03/24/2021 8:13 PM COOK JELLY documented as of this encounter Miscellaneous Notes Telephone Encounter - Edie Aguilar R.N. - 06/16/2021 1:24 PM CST SUBJECTIVE CHIEF COMPLAINT / REASON FOR CALL Labs Only Test Result Information: Resulted Orders Calcium, Total Result Value Ref Range Calcium, Total, P 7.5 (L) 8.8 - 10.2 mg/dL Mr. Walton confirms that he is taking calcium citrate 2 tabs every bedtime on an empty stomach. He will increase the dose to 4 tabs at bedtime. He denies symptoms of low calcium. Disposition/Recommendation: I will review with the SPOOLING MACHINE OPERATOR team when he should repeat labs next. I asked him to contact us if he does develop symptoms of a low calcium. Information/Education: patient/caller able to teach back Caller agreeable to plan of care: yes Addendum: patient informed to continue 4 tabs of calcium citrate and repeat labs with his next CKD follow up with Hui Delgado CNP. JELLY Telephone Encounter - Edie Aguilar R.N. - 06/16/2021 1:17 PM CST ----- Message from Susana Saucedo APRN, C.N.P., M.S. sent at 06/15/2021 4:46 PM COOK JELLY ----- Please call patient to confirm that he is indeed taking calcium citrate 2 tablets every night at bedtime (on empty stomach). If he is taking the calcium without fail, okay to increase to 4 tablets at HS, otherwise okay to continue 2 tablets and recheck with follow up. Please review s/s of hypocalcemia and ask him to let us know if s/s. JELLY documented in this encounter Plan of Treatment Not on filedocumented as of this encounter Visit Diagnoses Not on filedocumented in this encounter Additional Health Concerns Assessment Noted Time PHQ-9 Depression Total Score: 3 01/03/2018 10:38 AM CD T documented as of this encounter Care Teams Balance Recesser Relationship Specialty Start Date End Date Elsewhere, Pcp PCP - General Family Medicine 01/29/20 documented as of this encounter
--- OUTSIDE RECORDS SUMMARY | 2022-03-16 12:21 | XMS_ITS | Encounter Summary ---
:1950 Author Organization [facility] Address [address] [place] [address] Care Team Providers Name Role Phone Elsewhere, Pcp Primary Care Provider Unavailable Reason for Visit Reason Comments Patient Education Encounter Details Date Type Department Care Team Description 04/08/2021 Education Department of Patient Oracio Hussein, JULIÁN, C.N.P., D.N.P. [address] [place] [address] Chronic Kidney Disease Education in Danica Hawley M.S. Stage 4 Glomerular [place], [place] Filtration Rate 15-29 [address] [facility] [place] [address] Social History Tobacco Use Types Packs/Day Years [...] week 03/25/2021 How often do you attend sikhism or lutheran services? 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
--- OUTSIDE RECORDS SUMMARY | 2022-03-16 12:21 | XMS_ITS | Encounter Summary ---
:1950 Author Organization [facility] Address [address] [place] [address] Care Team Providers Name Role Phone Elsewhere, Pcp Primary Care Provider Unavailable Encounter Details Date Type Department Care Team Description 05/22/2021 Hospital Encounter Department of Louise Hussein Kidney Laboratory Medicine JULIÁN Narayanan C.N.PFei, Dise ase Stage 4 in Marni Phillips Glomerular [place] [address] [facility] Filtration Rate [address] [place], [place] 15-29 ([facility] [place] [id number] Social History Tobacco Use Types Packs/Day Years [...] week 03/25/2021 How often do you attend advent or adventist services? 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 aspirin [address] tablet Take 325 [...] until symptoms go away (usually 2-3 days) DULoxetine (CYMBALTA) 60 Take 60 mg by [...] mouth 0 0.5 mg tablet at bedtime. amLODIPine (NORVASC) 10 Take 1 tablet (10 mg 90 tablet 3 05/27/2021 mg tablet total) by mouth daily. doxepin (SINEquan) 10 mg TAKE ONE CAPSULE BY 90 capsule 3 05/28/2021 capsule MOUTH AT BEDTIME furosemide (LASIX) 20 mg Take 1 tablet [...] Procedure Name Priority Date/Time Associated Comments Diagnosis ALBUMIN, RANDOM, U Routine 05/22/2021 10:05 Chronic Kidney Res ults for this AM TESTING AND REGULATING TECHNICIAN Disease Stage 4 procedure ar e in Glomerular the results Filtration Rate section. (HCC) URINALYSIS WITH Routine 05/22/2021 10:05 Chronic Kidney Result s for this MICROSCOPIC AM TESTING AND REGULATING TECHNICIAN Disease Stage 4 procedure ar e in Glomerular the results Filtration Rate section. (HCC) documented in this encounter Results (ABNORMAL) Albumin, Random, Urine (05/22/2021 10:05 AM TESTING AND REGULATING TECHNICIAN) [facility] Method Time Signature Microalbumin 594.0 mg/L 05/22/2021 OWAT 2:04 PM TESTING AND REGULATING TECHNICIAN Creatinine 39 mg/dL 05/22/2021 [place] 1:44 PM TESTING AND REGULATING TECHNICIAN Albumin/Creatinin 1523 (H) <17 mg/g 05/22/2021 OWAT e Ratio 2:04 PM TESTING AND REGULATING TECHNICIAN Specimen Anatomical Collection Method Collection Time Receive d Time (Source) Location / / Volume Laterality Urine (Urine, 05/22/2021 10:05 05/22/2021 1:04 Clean Catch) AM TESTING AND REGULATING TECHNICIAN PM TESTING AND REGULATING TECHNICIAN Louise uHssein APRN, C.N.P., D.N.P. LAB URINE NATALYE XAVIER Performing Organization Address City/State/ZIP Code Phon e Number [facility]- [address] [place] [address] [facility] [place] [address] System in [place] [address] (ABNORMAL) Urinalysis with Microscopic: Urine, Midstream (05/22/2021 10:05 AM TESTING AND REGULATING TECHNICIAN) Analysis Performed At Patho logist Time Signature Source Urine, Urine, 05/22/2021 FB60 Midstream 10:06 AM TESTING AND REGULATING TECHNICIAN Clarity Clear Clear 05/22/2021 FB60 10:10 AM TESTING AND REGULATING TECHNICIAN Color Yellow 05/22/2021 FB60 10:10 AM TESTING AND REGULATING TECHNICIAN Comment: ----REFERENCE VALUE---- Colorless Yellow Cha Blood Trace (A) Negative 05/22/2021 10:10 AM TESTING AND REGULATING TECHNICIAN FB60 Nitrite Negative Negative 05/22/2021 10:10 AM TESTING AND REGULATING TECHNICIAN FB60 Leukocyte Esterase Negative Negative 05/22/2021 10:[address] FB60 Protein 100 (A) mg/dL 05/22/2021 10:10 AM TESTING AND REGULATING TECHNICIAN FB60 Comment: ----REFERENCE VALUE---- Negative Trace Glucose Negative Negative mg/dL 05/22/2021 10:10 AM TESTING AND REGULATING TECHNICIAN F B60 Ketones, QI(U) Negative Negative mg/dL 05/22/2021 10:10 AM TESTING AND REGULATING TECHNICIAN FB60 Bilirubin Negative Negative 05/22/2021 10:10 AM TESTING AND REGULATING TECHNICIAN FB60 pH 5.5 5.0 - 8.0 05/22/2021 10:10 AM TESTING AND REGULATING TECHNICIAN FB60 Specific [place] 1.015 1.001 - 1.035 05/22/2021 10:10 AM TESTING AND REGULATING TECHNICIAN FB60 Urobilinogen 0.2 0.2 - 1.0 mg/dL 05/22/2021 10:[address] FB60 White Blood Cells None Seen /hpf 05/22/2021 10:50 AM CS T FB60 Comment: ----REFERENCE VALUE---- Males: 0-3 Females: 0-10 Unknown: 0-10 Red Blood Cells None Seen 0 - 2 /hpf 05/22/2021 10:50 AM TESTING AND REGULATING TECHNICIAN FB60 Squamous Cells 4-10 /hpf 05/22/2021 10:50 AM TESTING AND REGULATING TECHNICIAN F B60 Specimen Anatomical Collection Method Collection Time Receive d Time (Source) Location / / Volume Laterality Urine (Urine, 05/22/2021 10:05 05/22/2021 Midstream) AM TESTING AND REGULATING TECHNICIAN 10:05 AM TESTING AND REGULATING TECHNICIAN Louise Hussein APRN, C.N.P., D.N.P. LAB URINE [place] Performing Organization Address City/State/ZIP Code Phon e Number [address] [place] [address] [facility] [place] [address] System [address] documented in this encounter Visit Diagnoses Diagnosis Chronic Kidney Disease Stage 4 Glomerula r Filtration Rate 15-29 (HCC) documented in this encounter Additional Health Concerns Assessment Noted Time PHQ-9 Depression Total Score: 3 01/03/2018 10:38 AM CD T documented as of this encounter Care Teams Civil Engineering Design Draftsperson Relationship Specialty Start Date End Date Elsewhere, Pcp PCP - General Family Medicine 01/29/20 documented as of this encounter
--- OUTSIDE RECORDS SUMMARY | 2022-03-16 12:21 | XMS_ITS | Encounter Summary ---
:1950 Author Organization [facility] Address [address] [place] [address] Care Team Providers Name Role Phone Elsewhere, Pcp Primary Care Provider Unavailable Encounter Details Date Type Department Care Team Description 05/22/2021 Hospital Encounter Department of Louise Hussein Kidney Laboratory Medicine JULIÁN Narayanan C.N.PFei, Dise ase Stage 4 in Marni Phillips Glomerular [place] [address] [facility] Filtration Rate [address] [place], [place] 15-29 ([facility]) [place] [phone] Social History Tobacco Use Types Packs/Day Years [...] week 03/25/2021 How often do you attend gnosticist or congregational services? 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 ([facility]) CYSTATIN C WITH EGFR Routine 05/22/2021 10:00 Chronic Kidney R esults for this AM PROFESSOR OF MATHEMATICS Disease Stage 4 procedure ar e in Glomerular the results Filtration Rate section. ([facility]) IRON AND TOT Routine 05/22/2021 10:00 Chronic Kidney Results f or this IRON-BINDING AM PROFESSOR OF MATHEMATICS Disease Stage 4 procedure ar e in CAPACITY, S/P Glomerular the results Filtration Rate section. (HCC) HBC TOTAL AB, SERUM Routine 05/22/2021 10:00 Chronic Kidney Re sults for this AM PROFESSOR OF MATHEMATICS Disease Stage 4 procedure ar e in Glomerular the results Filtration Rate section. 15-29 (HCC) HBS ANTIBODY, SERUM Routine 05/22/2021 10:00 Chronic Kidney Re sults for this AM PROFESSOR OF MATHEMATICS Disease Stage 4 procedure ar e in Glomerular the results Filtration Rate section. 15- (HCC) HEPATITIS B SURFACE Routine 05/22/2021 10:00 Chronic Kidney Re sults for this ANTIGEN AM PROFESSOR OF MATHEMATICS Disease Stage 4 procedure ar e in Glomerular the results Filtration Rate section. (HCC) CBC WITHOUT Routine 05/22/2021 10:00 Chronic Kidney Results f or this DIFFERENTIAL, B AM PROFESSOR OF MATHEMATICS Disease Stage 4 procedure are in Glomerular the results Filtration Rate section. (HCC) PARATHYROID HORMONE Routine 05/22/2021 10:00 Chronic Kidney Re sults for this (PTH), S AM PROFESSOR OF MATHEMATICS Disease Stage 4 procedure ar e in Glomerular the results Filtration Rate section. (HCC) FERRITIN, S Routine 05/22/2021 10:00 Chronic Kidney Results f or this AM PROFESSOR OF MATHEMATICS Disease Stage 4 procedure ar e in Glomerular the results Filtration Rate section. (HCC) documented in this encounter Results (ABNORMAL) Iron and Total Iron-Binding Capacity (05/22/2021 10:00 AM PROFESSOR OF MATHEMATICS) P athologist Signature Iron 58 50 - 150 05/22/2021 [place] mcg/dL 4:02 PM PROFESSOR OF MATHEMATICS Total Iron 221 (L) 250 - 400 05/22/2021 [place] Binding mcg/dL 4:02 PM PROFESSOR OF MATHEMATICS Capacity Percent 26 14 - 50 % 05/22/2021 [place] Saturation 4:02 PM PROFESSOR OF MATHEMATICS Specimen Anatomical Collection Method Collection Time Receive d Time (Source) Location / / Volume Laterality Blood (Blood, 05/22/2021 10:00 05/22/2021 3:33 Venous) AM PROFESSOR OF MATHEMATICS PM PROFESSOR OF MATHEMATICS Louise Hussein APRN, C.N.P., D.N.P. LAB BLOOD ADD- ON Performing Organization Address City/State/ZIP Code Phon e Number [facility]- [address] [place] [address] [facility] [facility] [place], [place] [id number] [place] [address] Ferritin (05/22/2021 10:00 AM PROFESSOR OF MATHEMATICS) athologist Signature Ferritin, S 120 31 - 409 05/22/2021 [facility] mcg/L 1:50 PM PROFESSOR OF MATHEMATICS Comment: Biotin has been identified by the lauryn currie as a potential interfering substance. ??Higher concentr ations of biotin may be found in multivitamins, hair/nail supple ments, and workout supplements. ??If the result does not [facility] clinical observations, repeat testing after patient refrains fr om the use of supplements for at least 12 hours. Specimen Anatomical Collection Method Collection Time Receive d Time (Source) Location / / Volume Laterality Blood (Blood, 05/22/2021 10:00 05/22/2021 1:03 Venous) AM PROFESSOR OF MATHEMATICS PM PROFESSOR OF MATHEMATICS Louise Hussein APRN C.N.P., D.N.P. LAB BLOOD ADD- ON Performing Organization Address City/[facility] [[email or web address]] Code Phon e Number [facility]- [address] [place] [address] [place] [address] System in [place] [address] [facility] HBs Antibody, Serum (05/22/2021 10:00 AM PROFESSOR OF MATHEMATICS) athologist Signature HBs Antibody, Negative 05/22/2021 [place] S 4:45 PM PROFESSOR OF MATHEMATICS Comment: ----REFERENCE VALUE---- Unvaccinated: Negative Vaccinated: Positive HBs Antibody, Quantitative, S <3.5 mIU/mL 05/22/2021 4:45 PM PROFESSOR OF MATHEMATICS [facility] Comment: ----REFERENCE VALUE---- <8.50: Negative 8.50-11.49: Indeterminate >=11.50: Positive Specimen Anatomical Collection Method Collection Time Receive d Time (Source) Location / / Volume Laterality Blood (Blood, 05/22/2021 10:00 05/22/2021 3:33 Venous) AM PROFESSOR OF MATHEMATICS PM PROFESSOR OF MATHEMATICS Louise Hussein APRN, C.N.P., D.N.P. LAB MICROBIOLO GY - BLOOD ORDERABLES Performing Organization Address City/[facility]/ZIP Code Phon e Number [facility]- [address] [place] [address] [facility] [place] [place] [address] [facility] [address] HBc Total Ab, Serum (05/22/2021 10:00 AM PROFESSOR OF MATHEMATICS) P athologist Signature HBc Total Ab, Negative Negative 05/23/2021 [facility] S 9:56 AM PROFESSOR OF MATHEMATICS Specimen Anatomical Collection Method Collection Time Receive d Time (Source) Location / / Volume Laterality Blood (Blood, 05/22/2021 10:00 05/23/2021 8:42 Venous) AM PROFESSOR OF MATHEMATICS AM PROFESSOR OF MATHEMATICS William Lopez APRN.N.P., D.N.P. LAB MICROBIOLO GY - BLOOD ORDERABLES Performing Organization Address [facility] [[email or web address]] Code Phon e Number [facility] [address] [place], [place] [address] SUPPORT CENTER [facility] [place] [address] Laboratory Medicine and Pathology [address] [place] [address] Dr. RAIN Hepatitis B Surface Antigen (05/22/2021 10:00 AM PROFESSOR OF MATHEMATICS) [facility] gist Method Time Signature HBs Antigen, Nonreactive Nonreactive 05/22/2021 [facility] S 4:45 PM PROFESSOR OF MATHEMATICS Comment: Biotin has been identified by the lauryn currie as a potential interfering substance. ??Higher concentr ations of biotin may be found in multivitamins, hair/nail supple ments, and workout supplements. ??If the result does not ma [facility] clinical observations, repeat testing after patient refrains fr om the use of supplements for at least 12 hours. Specimen Anatomical Collection Method Collection Time Receive d Time (Source) Location / / Volume Laterality Blood (Blood, 05/22/2021 10:00 05/22/2021 3:33 Venous) AM PROFESSOR OF MATHEMATICS PM PROFESSOR OF MATHEMATICS Louise Hussein APRN, C.N.P., D.N.P. LAB MICROBIOLO GY - BLOOD ORDERABLES Performing Organization Address City/[facility] [[email or web address]] Code Phon e Number [facility]- [address] [place] [address] [facility] [place] [place] [address] [facility] [address] (ABNORMAL) Cystatin C with Estimated GFR, S (05/22/2021 10:00 AM PROFESSOR OF MATHEMATICS) P athologist Signature eGFR by 19 (L) >60 05/23/2021 [facility] Cystatin C mL/min/BSA 7:05 AM PROFESSOR OF MATHEMATICS Comment: Estimated GFR calculated using the CKD-E [...] lower with the new assay. Cystatin C 2.79 (H) 0.67 - 1.21 mg/L 05/23/2021 7:05 AM PROFESSOR OF MATHEMATICS DTL Specimen Anatomical Collection Method Collection Time Receive d Time (Source) Location / / Volume Laterality Blood (Blood, 05/22/2021 10:00 05/23/2021 6:48 Venous) AM PROFESSOR OF MATHEMATICS AM PROFESSOR OF MATHEMATICS Louise Hussein APRN, C.N.P., D.N.P. LAB BLOOD ADD- ON Performing Organization Address City/State/ZIP Code Phon e Number [facility] - [address] [place], [place] [address] [facility] [place] [address] [facility] [address] (ABNORMAL) Parathyroid Hormone (PTH) (05/22/2021 10:00 AM PROFESSOR OF MATHEMATICS) Analysis Performed At Patho logist Time Signature Parathyroid 260 (H) 15 - 65 05/22/2021 [place] Hormone (PTH), S pg/mL 4:17 PM PROFESSOR OF MATHEMATICS Comment: Biotin has been identified by the lauryn cturer as a potential interfering substance. ??Higher concentr ations of biotin may be found in multivitamins, hair/nail supple ments, and workout supplements. ??If the result does not ma [facility] clinical observations, repeat testing after patient refrains fr om the use of supplements for at least 12 hours. Specimen Anatomical Collection Method Collection Time Receive d Time (Source) Location / / Volume Laterality Blood (Blood, 05/22/2021 10:00 05/22/2021 3:33 Venous) AM PROFESSOR OF MATHEMATICS PM PROFESSOR OF MATHEMATICS Jennifer Lopez APRNNChucho, D.N.PFei LAB BLOOD ADD- ON Performing Organization Address City/State/ZIP Code Phon e Number [facility]- [address] [place] [address] [facility] [place] [place] [address] [facility] [address] (ABNORMAL) Renal Function Panel (05/22/2021 10:00 AM PROFESSOR OF MATHEMATICS) Analysis Performed At Patho logist Time Signature Potassium, P 4.7 3.6 - 5.2 05/22/2021 [place] mmol/L 1:39 PM PROFESSOR OF MATHEMATICS Sodium, P 137 135 - 145 05/22/2021 [place] mmol/L 1:39 PM PROFESSOR OF MATHEMATICS Chloride, P 104 98 - 107 05/22/2021 [place] mmol/L 1:39 PM PROFESSOR OF MATHEMATICS Bicarbonate, P 23 22 - 29 05/22/2021 [place] mmol/L 1:39 PM PROFESSOR OF MATHEMATICS Anion Gap, P 10 7 - 15 05/22/2021 [place] 1:39 PM PROFESSOR OF MATHEMATICS BUN (Blood Urea 36 (H) 8 - 24 05/22/2021 [place] Nitrogen), P mg/dL 1:39 PM PROFESSOR OF MATHEMATICS Creatinine 2.59 (H) 0.74 - 05/22/2021 [place] 1.35 mg/dL 1:39 PM PROFESSOR OF MATHEMATICS eGFR-Black/Afri 28 (L) >=60 05/22/2021 [place] can [place] mL/min/BSA 1:39 PM PROFESSOR OF MATHEMATICS Comment: ----ADDITIONAL INFORMATION---- Estimated GFR calculated using the 2009 CKD_EPI creatinine equation. eGFR Non-Black/ 24 (L) >=60 mL/min/BSA 05/22/2021 1:39 PM PROFESSOR OF MATHEMATICS [facility] [place] Comment: ----ADDITIONAL INFORMATION---- Estimated GFR calculated using the 2009 CKD_EPI creatinine equation. Calcium, Total, P 7.8 (L) 8.8 - 10.2 mg/dL 05/22/2021 1:39 PM PROFESSOR OF MATHEMATICS [place] Glucose, P 133 70 - 140 mg/dL 05/22/2021 1:39 PM PROFESSOR OF MATHEMATICS O TERI Albumin, P 3.8 3.5 - 5.0 g/dL 05/22/2021 1:39 PM PROFESSOR OF MATHEMATICS O TERI Phosphorus (Inorganic), P 4.3 2.5 - 4.5 mg/dL 05/22/19 4:11 PM PROFESSOR OF MATHEMATICS [place] Specimen Anatomical Collection Method Collection Time Receive d Time (Source) Location / / Volume Laterality Blood (Blood, 05/22/2021 10:00 05/22/2021 1:04 Venous) AM PROFESSOR OF MATHEMATICS PM PROFESSOR OF MATHEMATICS Narrative [facility] [place] [facility] - 05/22/2021 4:11 PM PROFESSOR OF MATHEMATICS Specimen Information: Specimen ID: [id number] Specimen Type: Blood Specimen Collection Start Date: 2 10:00 AM Specimen Received Date: 05/22/2021 ??1:04 PM Specimen ID: [id number] Specimen Type: Blood Specimen Collection Start Date: 2 10:00 AM Specimen Received Date: 05/22/2021 ??3:33 PM Louise Hussein APRN, C.N.P., D.N.P. LAB BLOOD ADD- ON Performing Organization Address City/State/ZIP Code Phon e Number [facility]- [address] [place] [address] [place] [address] System in [place] [address] [facility] [place] [address] [facility] [address] (ABNORMAL) CBC without Differential (05/22/2021 10:00 AM PROFESSOR OF MATHEMATICS) [facility] gist Method Time Signature Hemoglobin 11.1 (L) 13.2 - 05/22/2021 FB60 16.6 g/dL 10:11 AM PROFESSOR OF MATHEMATICS Hematocrit 33.9 (L) 38.3 - 05/22/2021 [facility]60 48.6 % 10:11 AM PROFESSOR OF MATHEMATICS Erythrocytes 3.55 (L) 4.35 - 05/22/2021 FB60 5.65 10:11 AM PROFESSOR OF MATHEMATICS x10(12)/L MCV 95.5 78.2 - 05/22/2021 FB60 97.9 fL 10:11 AM PROFESSOR OF MATHEMATICS RBC Distrib Width 14.1 11.8 - 05/22/2021 FB60 14.5 % 10:11 AM PROFESSOR OF MATHEMATICS Platelet Count 248 135 - 317 05/22/2021 FB60 x10(9)/L 10:11 AM PROFESSOR OF MATHEMATICS Leukocytes 16.2 (H) 3.4 - 9.6 05/22/2021 FB60 x10(9)/L 10:11 AM PROFESSOR OF MATHEMATICS Specimen Anatomical Collection Method Collection Time Receive d Time (Source) Location / / Volume Laterality Blood (Blood, 05/22/2021 10:00 05/22/2021 Venous) AM PROFESSOR OF MATHEMATICS 10:01 AM PROFESSOR OF MATHEMATICS Louise Hussein APRN, C.N.P., D.N.P. LAB BLOOD ADD- ON Performing Organization Address City/State/ZIP Code Phon e Number [place] [address] [place], [place] [id number] [place] [address] LAB [address]60 [place] [address] System [address] documented in this encounter Visit Diagnoses Diagnosis Chronic Kidney Disease Stage 4 Glomerula r Filtration Rate 15-29 (HCC) documented in this encounter Additional Health Concerns Assessment Noted Time PHQ-9 Depression Total Score: 3 01/03/2018 10:38 AM CD T documented as of this encounter Care Teams Carport Erector Relationship Specialty Start Date End Date Elsewhere, Pcp PCP - General Family Medicine 01/29/20 documented as of this encounter
--- OUTSIDE RECORDS SUMMARY | 2022-03-16 12:21 | XMS_ITS | Encounter Summary ---
:1950 Author Organization [facility] Address [address] [place] [address] Care Team Providers Name Role Phone Elsewhere, Pcp Primary Care Provider Unavailable Reason for Visit Reason Comments Med Refill Encounter Details Date Type Department Care Team Description 05/28/2021 Refill Department of Sleep Medicine in Yessy Cohen M.D., Med Refill [place], [place] [facility] [address] [place] [address] [place] [phone] (Wo rk) Social History Tobacco Use Types Packs/Day Years [...] week 03/25/2021 How often do you attend oriental orthodox or gnosticism services? 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
--- OUTSIDE RECORDS SUMMARY | 2022-03-16 12:21 | XMS_ITS | Encounter Summary ---
:1950 Author Organization [facility] Address [address] [place] [address] Care Team Providers Name Role Phone Elsewhere, Pcp Primary Care Provider Unavailable Encounter Details Date Type Department Care Team Description 02/13/2021 Clinical Communication Division of Nephrology Wellerri tter, and Hypertension in Hui Reddy APRNN[place], [place] C.N.P., D.N.P. [address] [place] [address] Social History Tobacco Use Types Packs/Day Years [...] How often do you attend denominational or taoist services? Never 03/25/2021 Do you belong to [...] What is the highest level of school Associate degree: migdalia muller, 04/30/2019 you have completed or the highest technical, or vocational p rogram degree you have received? 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 - 02/13/2021 4:15 PM CDT Lab work from February 10, 2021 shows a creatinine worsening of 3.20 with an EGFR of 19 and a potassium is 6.0. He was [facility] in [facility] in [place] on February 04, 2021. At that time his creatinine indicated in EGFR 25 mL/min and his potassium was 5.5. I started him on Lasix 20 mg daily. He had been taking this for the past 6 days. He has lab work recheck tomorrow. I spoke with him and advised him he needs to follow a low-potassium diet recheck labs tomorrow. Repeat lab work shows a creatinine of 3.0 and a potassium of 5.8. He states he was eating a lot of melon, tomatoes and potatoes.I advised him of the importance of following a low-potassium diet my concerns with hyperkalemia. His creatinine is improving as well as his potassium. Now that he is following a low-potassium diet I donot think we need to treat his hyperkalemia. He is asymptomatic at this time. He will repeat his blood work in [place] on Tuesday with a creatinine and a potassium again. He also states he was not drinking any water I have asked him to please ensure that he is drinking plenty of water to stay hydrated. He met with his primary care physician who started him on an SGLT 2 inhibitor which at the time his kidney function was appropriate with an EGFR of 25 mL/min however now that his EGFR has fallen I told him to hold off on taking up the SGLT 2 inhibitor until we get his repeat blood work back. Await r epeat lab work from Tuesday. documented in this encounter Plan of Treatment Not on filedocumented as of this encounter Visit Diagnoses Not on filedocumented in this encounter Additional Health Concerns Assessment Noted Time PHQ-9 Depression Total Score: 3 01/03/2018 10:38 AM CD T documented as of this encounter Care Teams Barytes Grinder Relationship Specialty Start Date End Date Elsewhere, Pcp PCP - General Family Medicine 01/29/20 documented as of this encounter
--- OUTSIDE RECORDS SUMMARY | 2022-03-16 12:21 | XMS_ITS | Encounter Summary ---
:1950 Author Organization [facility] Address [address] [place] [address] Care Team Providers Name Role Phone Elsewhere, Pcp Primary Care Provider Unavailable Encounter Details Date Type Department Care Team Description 03/05/2021 Clinical Communication Division of Nephrology Peters, Trisha Carrizales, and Hypertension in [place], [place] [address] [facility] [address] [place] [phone] Social History Tobacco Use Types Packs/Day Years [...] week 03/25/2021 How often do you attend faith or congregation services? Never 03/25/2021 Do you belong to any clubs or organizations such as faith N o 03/25/2021 groups, unions, fraternal or [...] or the highest technical, or vocational p susan degree you have received? 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 - 03/05/2021 8:14 AM CDT Images from the original note were not included. documented in this encounter Plan of Treatment Not on filedocumented as of this encounter Visit Diagnoses Not on filedocumented in this encounter Additional Health Concerns Assessment Noted Time PHQ-9 Depression Total Score: 3 01/03/2018 10:38 AM CD T documented as of this encounter Care Teams Special Education Tutor Relationship Specialty Start Date End Date Elsewhere, Pcp PCP - General Family Medicine 01/29/20 documented as of this encounter
--- OUTSIDE RECORDS SUMMARY | 2022-03-16 12:21 | XMS_ITS | Encounter Summary ---
:1950 Author Organization [facility] Address [address] [place] [address] Care Team Providers Name Role Phone Elsewhere, Pcp Primary Care Provider Unavailable Encounter Details Date Type Department Care Team Description 06/15/2021 Hospital Encounter Department of [place], eHarmonye nsive Chronic Laboratory Medicine Hui Reddy APRN, Kidney Disease (CKD) in [place], JenniferNChucho, D.N.PFei Stage 3b Peace merular [place] Filtration Rate (GFR) [address] 30 To 44 (HCC) [facility] [id number] Social History Tobacco Use Types Packs/Day Years [...] week 03/25/2021 How often do you attend holiness or orthodox services? 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 calcium citrate Take 2 tablets (400 180 tablet 3 06/01/2021 06/16/2021 (CALCITRATE) 950 mg (200 mg of calcium total) mg calcium) tablet by mouth at bedtime. furosemide (LASIX) 20 mg Take [...] week. Sundays documented as of this encounter Miscellaneous Notes Result Encounter Note - Susana Saucedo APRN, C.N.P., M.S. - 06/15/2021 4:46 PM CST Please call patient to confirm that he is indeed taking calcium citrate 2 tablets every night at bedtime (on empty stomach). If he is taking the calcium without fail, okay to increase to 4 tablets at HS, otherwise okay to continue 2 tablets and recheck with follow up. Please review s/s of hypocalcemia and ask him to let us know if s/s. NG DEPARTMENT END FINDER documented in this encounter Plan of Treatment Not on filedocumented as of this encounter Procedures Procedure Name Priority Date/Time Associated Diagnosis Comme nts CALCIUM, TOT, S/P Routine 06/15/2021 2:17 PM Hypertensive Pediatrics Hospitalist shubham Results for this ROVING DEPARTMENT END FINDER Kidney Disease (CKD) procedu re are in Stage 3b Glomerular the resu lts Filtration Rate (GFR) sectio n. 30 To 44 (HCC) documented in this encounter Results (ABNORMAL) Calcium, Total (06/15/2021 2:17 PM ROVING DEPARTMENT END FINDER) P athologist Signature Calcium, 7.5 (L) 8.8 - 10.2 06/15/2021 [place] Total, P mg/dL 3:52 PM ROVING DEPARTMENT END FINDER Specimen Anatomical Collection Method Collection Time Receive d Time (Source) Location / / Volume Laterality Blood (Blood, 06/15/2021 2:17 PM 06/15/19 22 3:39 Venous) ROVING DEPARTMENT END FINDER PM ROVING DEPARTMENT END FINDER Hui Delgado APRN C.N.P., D.N.P. LAB BLOOD AD D-ON Performing Organization Address City/State/ZIP Code Phon e Number [facility]- [address] [place] [address] [place] [address] System in [place] [address] documented in this encounter Visit Diagnoses Diagnosis Hypertensive Chronic Kidney Disease (CKD ) Stage 3b Glomerular Filtration Rate (GFR) 30 To 44 (HCC) documented in this encounter Additional Health Concerns Assessment Noted Time PHQ-9 Depression Total Score: 3 01/03/2018 10:38 AM CD T documented as of this encounter Care Teams Cosmetics Machine Operator Relationship Specialty Start Date End Date Elsewhere, Pcp PCP - General Family Medicine 01/29/20 documented as of this encounter
--- OUTSIDE RECORDS SUMMARY | 2022-03-16 12:21 | XMS_ITS | Encounter Summary ---
:1950 Author Organization [facility] Address [address] [place] [address] Care Team Providers Name Role Phone Elsewhere, Pcp Primary Care Provider Unavailable Encounter Details Date Type Department Care Team Description 03/26/2021 Orders Only [facility] Sa barbara Jean M.D. [address] [place], [place] [phone] (Wo rk) Social History Tobacco Use Types [...] week 03/25/2021 How often do you attend rastafarian or hinduism services? 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
--- OUTSIDE RECORDS SUMMARY | 2022-03-16 12:21 | XMS_ITS | Encounter Summary ---
:1950 Author Organization [facility] Address [address] [place] [address] Care Team Providers Name Role Phone Elsewhere, Pcp Primary Care Provider Unavailable Reason for Visit Reason Comments Labs Only Encounter Details Date Type Department Care Team Description 03/09/2021 Clinical Communication Division of Nephrology Trisha Peters, Labs [place] [address] [facility] [address] [place] [phone] Social History Tobacco Use Types Packs/Day Years [...] How often do you attend anglican or episcopal services? Never 03/25/2021 Do you belong to [...] completed or the highest technical, or vocational amy davis degree you have received? 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 - 03/09/2021 11:46 AM CDT Labs completed at: [facility] Lab Fax: Date Collected 02/25/21 CBC Hemoglobin WBC Platelets Absolute Neutrophils Chem Panel Sodium Potassium 5.5 Chloride Creatinine BUN CO2 23 Glucose HgbA1C Calcium Phosphorus Uric Acid PTH Albumin Liver Function AST Alk Phosphatase Total Bili Urine Studies Microalbuminuria Random 24 hour urine protein Protein-creatinine ratio Albumin-creatinine ratio Total Urine Volume Other test documented in this encounter Plan of Treatment Not on filedocumented as of this encounter Visit Diagnoses Not on filedocumented in this encounter Additional Health Concerns Assessment Noted Time PHQ-9 Depression Total Score: 3 01/03/2018 10:38 AM CD T documented as of this encounter Care Teams Value Engineer Relationship Specialty Start Date End Date Elsewhere, Pcp PCP - General Family Medicine 01/29/20 documented as of this encounter
--- OUTSIDE RECORDS SUMMARY | 2022-03-16 12:21 | XMS_ITS | Encounter Summary ---
:1950 Author Organization [facility] Address [address] [place] [address] Care Team Providers Name Role Phone Elsewhere, Pcp Primary Care Provider Unavailable Encounter Details Date Type Department Care Team Description 06/01/2021 Orders Only Division of Nephrology and [place], Hui Reddy, Hypertension, Yazidi JULIÁN, C.N.P., D.N .P. [place], in [place], [place] [address] [place] [phone] Social History Tobacco Use Types Packs/Day [...] How often do you attend buddhist or episcopalian services? 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
--- OUTSIDE RECORDS SUMMARY | 2022-03-16 12:21 | XMS_ITS | Encounter Summary ---
:1950 Author Organization [facility] Address [address] [place] [address] Care Team Providers Name Role Phone Elsewhere, Pcp Primary Care Provider Unavailable Encounter Details Date Type Department Care Team Description 02/24/2021 Clinical Communication Division of Nephrology [place], and Hypertension, [facility] C[facility]P., D.N.P. [place], [place] [address] [place] [address] Social History Tobacco Use Types Packs/Day Years [...] How often do you attend mu-ism or baptist services? 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 - 02/24/2021 12:52 PM CDT Lab results from February 17, 2021 received on February 20, 2021. Lab results are as follows BUN 45, creatinine 2.9, sodium 136, potassium 5.8, Bicarb 19, calcium 7.9, albumin 3.7. He reports some hand tingling, no other sx of hypocalcemia. He also states that he has stopped eating all high potassium foods and has been taking his sodium bicarbonate as prescribed. I will recheck his lab work tomorrow in [place] I have asked them to do this stat so I get the results the same day so I can treat his labsappropriately. He denies any cardiac symptoms. He denies any weakness fatigue. documented in this encounter Plan of Treatment Not on filedocumented as of this encounter Visit Diagnoses Not on filedocumented in this encounter Additional Health Concerns Assessment Noted Time PHQ-9 Depression Total Score: 3 01/03/2018 10:38 AM CD T documented as of this encounter Care Teams Foam Rubber Molder Relationship Specialty Start Date End Date Elsewhere, Pcp PCP - General Family Medicine 01/29/20 documented as of this encounter
--- OUTSIDE RECORDS SUMMARY | 2022-03-16 12:21 | XMS_ITS | Encounter Summary ---
:1950 Author Organization [facility] Address [address] [place] [address] Care Team Providers Name Role Phone Elsewhere, Pcp Primary Care Provider Unavailable Reason for Referral Specialty Diagnoses / Procedures Referred By Contact Refer red To Contact Louise [facility] [address] [place] [address] Referral ID Status Reason Start Date Expiration Date Visits Requ ested Visits Authorized utpatient (Routine) - Closed Specialty Diagnoses / Procedures Referred By Contact Refer red To Contact Nutrition Diagnoses Chronic Kidney Disease Stage 4 Glomerular Filtration Rate 15-29 (HCC) Louise Hussein [facility] D.N.P. [address] [place] [address] Referral ID Status Reason Start Date Expiration Date Visits Requ ested Visits Authorized [id number] Closed 03/26/2021 03/26/2022 1 1 Scheduling Instructions This appointment should ideally be sched uled AFTER the Shell Coremaker Consults, but must at least be scheduled 48 hours afte r 24-hour urine collection is complete. Virtual visit is acceptable for this titian visit. DESIGNER Reason for Visit Appointment Request (Routine) - Closed Specialty Diagnoses / Procedures Referred By Contact Refer red To Contact Nephrology and Hypertension Referral ID Status Reason Start Date Expiration Date Visits Requ ested Visits Authorized [id number] Closed 03/05/2021 03/05/2022 1 1 Encounter Details Date Type Department Care Team Description 03/25/2021 Virtual Visit Division of Nephrology Hui Cohn APRN, C.N.Kinza., D.N.P. Chronic Kidney and Hypertension in [place], Louise Narayanan, Jennifer GALLEGON.Kinza., D.N.P. [address] [place] [address] Disease Stage 4 [place], [place] Glomerular [address] [facility] Filtration Rate [place], [place] 15-29 (HCC) (P rimary [id number] Dx) [phone] Social History Tobacco Use Types Packs/Day Years [...] week 03/25/2021 How often do you attend quaker or cheondoism services? 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 - 03/25/2021 8:30 AM CST Consult conducted via real-time audio technology by Louise Flores) JULIÁN Hussein, William.N.P., D.N.P. in [facility] to the patient in their home. Subjective: Chief Complaint/Reason for Visit Chronic Kidney Disease History of Present Illness: Onesimo Walton is a 71 year old male who is being evaluated for chronic kidney disease stage 4 which is attributed to diabetes and hypertension. His other medical comorbidities include current tobacco use (he smoke 1 pack of cigarettes per day),diabetic neuropathy, GERD, diffuse severe vascular disease, hyperuricemia, gout, previous TIA, depression, and restless leg syndrome Review of Systems Constitutional: Positive for fatigue. ENT: Positive for difficulty hearing. Respiratory: Positive for dry cough and wheezing. Cardiovascular: Positive for swelling in the legs or feet and pain in the calf muscles when walking. Gastrointestinal: Positive for diarrhea. Genitourinary: Positive for difficulty urinating, frequent urination and erectile dysfunction. Hematologic: Positive for bruises or bleeds easily. Musculoskeletal: Positive for arthralgias, back pain, pain or stiffness in the joints, joint swelling and muscle pain/stiffness. Neurological: Positive for numbness or shooting pain in hands, arms, legs, or feet, loss of balance or tendency to fall easily, headaches and weakness in arms or legs. The following systems were negative: Skin, Eyes Objective: Blood pressure at home 157/75 right arm, 115/73 left arm Home weight: 82.7 kg Constitutional General: He is not in acute distress. Neurological Mental Status: He is alert and oriented to person, place, and time. Psychiatric Attention and Perception: Attention normal. Mood and Affect: Mood normal. Speech: Speech normal. Behavior: Behavior normal. Behavior is cooperative. Cognition and Memory: Cognition and memory normal. Judgment: Judgment normal. Assessment/Plan: #1 Chronic kidney Disease (CKD) stage 4 attributed to diabetes and hypertensive nephrosclerosis. GFR is 20 mL/min based on the labs from . Patient does not display signs of uremia today. Signs and symptoms of uremia reviewed today. #2 CKD treatment options Kidney Transplant: discussed today, he really is not interested in kidney transplant evaluation at this time. He also has significant medical comorbidites Dialysis Plan: discussed that he will have to start learning more about hemodialysis and peritoneal dialysis. Hepatitis B Status: serologies will be ordered for next visit and if negative the hepatitis B vaccine will be offered. I have strongly encouraged him to get the 3rd COVID booster as soon as possible. #3 Hypertension His blood pressure is quite different in the 2 arms. He continues on carvedilol 50 mg twice a day, amlodipine 10 mg every day, lisinopril 20 mg every day, and furosemide 20 mg oral every day. #4 Anemia of CKD I do not have an updated CBC. #5 Hyperparathyroidism, renal secondary Calcium: 8 mg/dL Phosphorus: no result Phosphate Binder: none Parathyroid Hormone: will need to checked Vitamin D Therapy: he takes vitamin D2 once a week and therefore will obtain vitamin D levels #6 Metabolic acidosis screening Bicarbonate: no recent level, will obtain an updated bicarbonate level Bicarbonate Therapy: none Follow-up: He needs updated labs I am ordering virtual ESRD treatment options, kidney dietitian appointment (need to assure he is on a low potassium, LAURA, low protein meal plan. Labs ordered for May and I have requested he been seen in the [place] CKD clinic in May, 2021. Louise Hussein (Peggy) NUCLEAR PHARMACIST/[phone] [facility] [place], [place] DESIGNER documented in this encounter Plan of Treatment Scheduled Referrals Name Type Priority Associated Order Schedule Diagnoses Nutrition - Outpatient Referral Routine Chronic Kidney Expect ed: Nephrology medical Disease Stage 4 2021 nutrition therapy Glomerular (Approxima te), consult (clinic) Filtration Rate Expires: ([facility]) 03/26/2024 Patient Education - Outpatient Referral Routine Chronic Kidney Expected: ESRD Treatment Disease Stage 4 05/27/2021 Options (Clinic) Glomerular (Approximat e), Filtration Rate Expires: ([facility]) 03/26/2024 documented as of this encounter Results (ABNORMAL) Albumin, Random, Urine (05/22/2021 10:05 AM CAR DESIGNER) Patholo gist Method Time Signature Microalbumin 594.0 mg/L 05/22/2021 OWAT 2:04 PM CAR DESIGNER Creatinine 39 mg/dL 05/22/2021 OWAT 1:44 PM CAR DESIGNER Albumin/Creatinin 1523 (H) <17 mg/g 05/22/2021 OWAT e Ratio 2:04 PM CAR DESIGNER Specimen Anatomical Collection Method Collection Time Receive d Time (Source) Location / / Volume Laterality Urine (Urine, 05/22/2021 10:05 05/22/2021 1:04 Clean Catch) AM CAR DESIGNER PM CAR DESIGNER Louise Hussein APRN, C.N.P., D.N.P. LAB URINE NATALYE XAVIER Performing Organization Address City/State/ZIP Code Phon e Number [facility]- [address] [place] [address] [place] [address] System in [place] [address] (ABNORMAL) Urinalysis with Microscopic: Urine, Midstream (05/22/2021 10:05 AM CAR DESIGNER) Analysis Performed At Patho logist Time Signature Source Urine, Urine, 05/22/2021 FB60 Midstream 10:06 AM CAR DESIGNER Clarity Clear Clear 05/22/2021 FB60 10:10 AM CAR DESIGNER Color Yellow 05/22/2021 FB60 10:10 AM CAR DESIGNER Comment: ----REFERENCE VALUE---- Colorless Yellow Cha Blood Trace (A) Negative 05/22/2021 10:10 AM CAR DESIGNER FB60 Nitrite Negative Negative 05/22/2021 10:10 AM CAR DESIGNER FB60 Leukocyte Esterase Negative Negative 05/22/2021 10:[address] FB60 Protein 100 (A) mg/dL 05/22/2021 10:10 AM CAR DESIGNER FB60 Comment: ----REFERENCE VALUE---- Negative Trace Glucose Negative Negative mg/dL 05/22/2021 10:10 AM CAR DESIGNER F B60 Ketones, QI(U) Negative Negative mg/dL 05/22/2021 10:10 AM CAR DESIGNER FB60 Bilirubin Negative Negative 05/22/2021 10:10 AM CAR DESIGNER FB60 pH 5.5 5.0 - 8.0 05/22/2021 10:10 AM CAR DESIGNER FB60 Specific [place] 1.015 1.001 - 1.035 05/22/2021 10:10 AM CAR DESIGNER FB60 Urobilinogen 0.2 0.2 - 1.0 mg/dL 05/22/2021 10:[address] FB60 White Blood Cells None Seen /hpf 05/22/2021 10:50 AM CS T FB60 Comment: ----REFERENCE VALUE---- Males: 0-3 Females: 0-10 Unknown: 0-10 Red Blood Cells None Seen 0 - 2 /hpf 05/22/2021 10:50 AM CAR DESIGNER FB60 Squamous Cells 4-10 /hpf 05/22/2021 10:50 AM CAR DESIGNER F B60 Specimen Anatomical Collection Method Collection Time Receive d Time (Source) Location / / Volume Laterality Urine (Urine, 05/22/2021 10:05 05/22/2021 Midstream) AM CAR DESIGNER 10:05 AM CAR DESIGNER Louise Hussein APRN, C.N.P., D.N.P. LAB URINE ORDE RABLES Performing Organization Address City/State/ZIP Code Phon e Number [address] [place] [address] [facility] [address] [place] [address] System [address] (ABNORMAL) Iron and Total Iron-Binding Capacity (05/22/2021 10:00 AM CAR DESIGNER) P athologist Signature Iron 58 50 - 150 05/22/2021 [place] mcg/dL 4:02 PM CAR DESIGNER Total Iron 221 (L) 250 - 400 05/22/2021 [place] Binding mcg/dL 4:02 PM CAR DESIGNER Capacity Percent 26 14 - 50 % 05/22/2021 [place] Saturation 4:02 PM CAR DESIGNER Specimen Anatomical Collection Method Collection Time Receive d Time (Source) Location / / Volume Laterality Blood (Blood, 05/22/2021 10:00 05/22/2021 3:33 Venous) AM CAR DESIGNER PM CAR DESIGNER Louise Husesin APRN, C.N.P., D.N.P. LAB BLOOD ADD- ON Performing Organization Address City/State/ZIP Code Phon e Number [facility]- [address] [place] [address] [place] [place] [address] [facility] [place] [facility] [address] Ferritin (05/22/2021 10:00 AM CAR DESIGNER) athologist Signature Ferritin, S 120 31 - 409 05/22/2021 OW mcg/L 1:50 PM CAR DESIGNER Comment: Biotin has been identified by the lauryn currie as a potential interfering substance. ??Higher concentr ations of biotin may be found in multivitamins, hair/nail supple ments, and workout supplements. ??If the result does not [facility] clinical observations, repeat testing after patient refrains fr om the use of supplements for at least 12 hours. Specimen Anatomical Collection Method Collection Time Receive d Time (Source) Location / / Volume Laterality Blood (Blood, 05/22/2021 10:00 05/22/2021 1:03 Venous) AM CAR DESIGNER PM CAR DESIGNER William Lopez APRN.N.P., D.N.P. LAB BLOOD ADD- ON Performing Organization Address City/State/ZIP Code Phon e Number [facility]- [address] [place] [address] [place] [place] [address] System in [place] [address] [place] [address] HBs Antibody, Serum (05/22/2021 10:00 AM CAR DESIGNER) athologist Signature HBs Antibody, Negative 05/22/2021 [place] S 4:45 PM CAR DESIGNER Comment: ----REFERENCE VALUE---- Unvaccinated: Negative Vaccinated: Positive HBs Antibody, Quantitative, S <3.5 mIU/mL 05/22/2021 4:45 PM CAR DESIGNER AUST Comment: ----REFERENCE VALUE---- <8.50: Negative 8.50-11.49: Indeterminate >=11.50: Positive Specimen Anatomical Collection Method Collection Time Receive d Time (Source) Location / / Volume Laterality Blood (Blood, 05/22/2021 10:00 05/22/2021 3:33 Venous) AM CAR DESIGNER PM CAR DESIGNER Louise Hussein APRN, C.N.P., D.N.P. LAB MICROBIOLO GY - BLOOD ORDERABLES Performing Organization Address City/[facility] Phon e Number [facility]- [address] [place] [address] [place] [facility] [place] [place], [place] [address] [place] [address] HBc Total Ab, Serum (05/22/2021 10:00 AM CAR DESIGNER) P athologist Signature HBc Total Ab, Negative Negative 05/23/2021 [facility] S 9:56 AM CAR DESIGNER Specimen Anatomical Collection Method Collection Time Receive d Time (Source) Location / / Volume Laterality Blood (Blood, 05/22/2021 10:00 05/23/2021 8:42 Venous) AM CAR DESIGNER AM CAR DESIGNER William Lopez APRN.N.P., D.N.P. LAB MICROBIOLO GY - BLOOD ORDERABLES Performing Organization Address [facility] Phon e Number [facility] [address] [place] [address] [facility] [place] [address] Laboratory Medicine and Pathology [address] [place] [address] Dr. RAIN Hepatitis B Surface Antigen (05/22/2021 10:00 AM CAR DESIGNER) [facility] Method Time Signature HBs Antigen, Nonreactive Nonreactive 05/22/2021 AUS S 4:45 PM CAR DESIGNER Comment: Biotin has been identified by the lauryn currie as a potential interfering substance. ??Higher concentr ations of biotin may be found in multivitamins, hair/nail supple ments, and workout supplements. ??If the result does not [facility] clinical observations, repeat testing after patient refrains fr om the use of supplements for at least 12 hours. Specimen Anatomical Collection Method Collection Time Receive d Time (Source) Location / / Volume Laterality Blood (Blood, 05/22/2021 10:00 05/22/2021 3:33 Venous) AM CAR DESIGNER PM CAR DESIGNER Louise Hussein APRN, William.N.P., D.N.P. LAB MICROBIOLO GY - BLOOD ORDERABLES Performing Organization Address City/[facility]/ZIP Code Phon e Number [facility]- [address] [place] [address] [place] [facility] [place] [place] [facility] - [place], [place] [address] [place] [address] (ABNORMAL) Cystatin C with Estimated GFR, S (05/22/2021 10:00 AM CAR DESIGNER) P athologist Signature eGFR by 19 (L) >60 05/23/2021 DTL Cystatin C mL/min/BSA 7:05 AM CAR DESIGNER Comment: Estimated GFR calculated using the CKD-E [...] 0.67 - 1.21 mg/L 05/23/2021 7:05 AM CAR DESIGNER DTL Specimen Anatomical Collection Method Collection Time Receive d Time (Source) Location / / Volume Laterality Blood (Blood, 05/22/2021 10:00 05/23/2021 6:48 Venous) AM CAR DESIGNER AM CAR DESIGNER Louise Hussein APRN, C.N.P., D.N.P. LAB BLOOD ADD- ON Performing Organization Address City/State/ZIP Code Phon e Number [facility] - [address] [place], [place] [address] [facility] [place] [address] [facility] [address] (ABNORMAL) Parathyroid Hormone (PTH) (05/22/2021 10:00 AM CAR DESIGNER) Analysis Performed At Patho logist Time Signature Parathyroid 260 (H) 15 - 65 05/22/2021 [place] Hormone (PTH), S pg/mL 4:17 PM CAR DESIGNER Comment: Biotin has been identified by the lauryn chavezurer as a potential interfering substance. ??Higher concentr ations of biotin may be found in multivitamins, hair/nail supple ments, and workout supplements. ??If the result does not [facility] clinical observations, repeat testing after patient refrains fr om the use of supplements for at least 12 hours. Specimen Anatomical Collection Method Collection Time Receive d Time (Source) Location / / Volume Laterality Blood (Blood, 05/22/2021 10:00 05/22/2021 3:33 Venous) AM CAR DESIGNER PM CAR DESIGNER William Lopez APRN.N.P., D.N.P. LAB BLOOD ADD- ON Performing Organization Address City/State/ZIP Code Phon e Number [facility]- [address] [place] [address] [facility] [place] [place] [address] [facility] [place] [facility] [address] (ABNORMAL) Renal Function Panel (05/22/2021 10:00 AM CAR DESIGNER) Analysis Performed At Patho logist Time Signature Potassium, P 4.7 3.6 - 5.2 05/22/2021 [place] mmol/L 1:39 PM CAR DESIGNER Sodium, P 137 135 - 145 05/22/2021 [place] mmol/L 1:39 PM CAR DESIGNER Chloride, P 104 98 - 107 05/22/2021 [place] mmol/L 1:39 PM CAR DESIGNER Bicarbonate, P 23 22 - 29 05/22/2021 [place] mmol/L 1:39 PM CAR DESIGNER Anion Gap, P 10 7 - 15 05/22/2021 [place] 1:39 PM CAR DESIGNER BUN (Blood Urea 36 (H) 8 - 24 05/22/2021 OW[place] Nitrogen), P mg/dL 1:39 PM CAR DESIGNER Creatinine 2.59 (H) 0.74 - 05/22/2021 [place] 1.35 mg/dL 1:39 PM CAR DESIGNER eGFR-Black/Afri 28 (L) >=60 05/22/2021 [place] can [place] mL/min/BSA 1:39 PM CAR DESIGNER Comment: ----ADDITIONAL INFORMATION---- Estimated GFR calculated using the 2009 CKD_EPI creatinine equation. eGFR Non-Black/ 24 (L) >=60 mL/min/BSA 05/22/2021 1:39 PM CAR DESIGNER OW[place] Comment: ----ADDITIONAL INFORMATION---- Estimated GFR calculated using the 2009 CKD_EPI creatinine equation. Calcium, Total, P 7.8 (L) 8.8 - 10.2 mg/dL 05/22/2021 1:39 PM CAR DESIGNER [place] Glucose, P 133 70 - 140 mg/dL 05/22/2021 1:39 PM CAR DESIGNER O TERI Albumin, P 3.8 3.5 - 5.0 g/dL 05/22/2021 1:39 PM CAR DESIGNER O TERI Phosphorus (Inorganic), P 4.3 2.5 - 4.5 mg/dL 05/22/19 22 4:11 PM CAR DESIGNER AUST Specimen Anatomical Collection Method Collection Time Receive d Time (Source) Location / / Volume Laterality Blood (Blood, 05/22/2021 10:00 05/22/2021 1:04 Venous) AM CAR DESIGNER PM CAR DESIGNER Narrative [facility] [place] [facility] - 05/22/2021 4:11 PM CAR DESIGNER Specimen Information: Specimen ID: [id number] Specimen Type: Blood Specimen Collection Start Date: 2 10:00 AM Specimen Received Date: 05/22/2021 ??1:04 PM Specimen ID: [id number] Specimen Type: Blood Specimen Collection Start Date: 2 10:00 AM Specimen Received Date: 05/22/2021 ??3:33 PM Louise Hussein APRN, C.N.P., D.N.P. LAB BLOOD ADD- ON Performing Organization Address City/State/ZIP Code Phon e Number [facility]- [address] [place], [place] [id number] [place] [address] [place] [address] System in [place] [address] [facility] [place] [address] [facility] [place] [facility] [address] (ABNORMAL) CBC without Differential (05/22/2021 10:00 AM CAR DESIGNER) [facility] Method Time Signature Hemoglobin 11.1 (L) 13.2 - 05/22/2021 FB60 16.6 g/dL 10:11 AM CAR DESIGNER Hematocrit 33.9 (L) 38.3 - 05/22/2021 FB60 48.6 % 10:11 AM CAR DESIGNER Erythrocytes 3.55 (L) 4.35 - 05/22/2021 FB60 5.65 10:11 AM CAR DESIGNER x10(12)/L MCV 95.5 78.2 - 05/22/2021 FB60 97.9 fL 10:11 AM CAR DESIGNER RBC Distrib Width 14.1 11.8 - 05/22/2021 FB60 14.5 % 10:11 AM CAR DESIGNER Platelet Count 248 135 - 317 05/22/2021 FB60 x10(9)/L 10:11 AM CAR DESIGNER Leukocytes 16.2 (H) 3.4 - 9.6 05/22/2021 FB60 x10(9)/L 10:11 AM CAR DESIGNER Specimen Anatomical Collection Method Collection Time Receive d Time (Source) Location / / Volume Laterality Blood (Blood, 05/22/2021 10:00 05/22/2021 Venous) AM CAR DESIGNER 10:01 AM CAR DESIGNER Louise Hussein APRN, C.N.P., D.N.P. LAB BLOOD ADD- ON Performing Organization Address City/State/ZIP Code Phon e Number [address] [place] [address] [facility] [address] [place] [address] System in [address] documented in this encounter Visit Diagnoses Diagnosis Chronic Kidney Disease Stage 4 Glomerula r Filtration Rate 15-29 (HCC) - Primary Chronic Kidney Disease Stage 4 Glomerula r Filtration Rate 15-29 (HCC) documented in this encounter Additional Health Concerns Assessment Noted Time PHQ-9 Depression Total Score: 3 01/03/2018 10:38 AM CD T documented as of this encounter Care Teams Credit Administration Manager Relationship Specialty Start Date End Date Elsewhere, Pcp PCP - General Family Medicine 01/29/20 documented as of this encounter
--- OUTSIDE RECORDS SUMMARY | 2022-03-16 12:22 | XMS_ITS | Encounter Summary ---
:1950 Author Organization [facility] Address [address] [place] [address] Care Team Providers Name Role Phone Elsewhere, Pcp Primary Care Provider Unavailable Reason for Visit Reason Comments medication clarification Encounter Details Date Type Department Care Team Description 10/01/2020 Clinical Division of [place], medication Communication Nephrology and robert Toscano Jr. on [place] [address] [facility] [address] [place] [phone] Social History Tobacco Use Types Packs/Day Years [...] week 03/25/2021 How often do you attend confucianist or yarsanism services? 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 He would like you to call him with recommendations going forward. His number is [phone]. Thanks documented in this encounter Plan of Treatment Not on filedocumented as of this encounter Visit Diagnoses Not on filedocumented in this encounter Additional Health Concerns Assessment Noted Time PHQ-9 Depression Total Score: 3 01/03/2018 10:38 AM CD T documented as of this encounter Care Teams Gang Punch Operator Relationship Specialty Start Date End Date Elsewhere, Pcp PCP - General Family Medicine 01/29/20 documented as of this encounter
--- OUTSIDE RECORDS SUMMARY | 2022-03-16 12:22 | XMS_ITS | Encounter Summary ---
:1950 Author Organization [facility] Address [address] [place] [address] Care Team Providers Name Role Phone Elsewhere, Pcp Primary Care Provider Unavailable Encounter Details Date Type Department Care Team Description 02/10/2021 Hospital Encounter Department of Kemar Velásquez, Periphe ral Arterial Disease (HCC); Laboratory Medicine M.B.B.S. Diabetes Mellitus Type 2 With Other Circ ulatory Complication Hyperglycemic (HCC); and Pathology, [address] [place] [address] Atherosclerosis Arteriosclerosis Obliter ans Lower Extremity (HCC) [facility], in [facility] [address] [place] [phone] [place] [address] (Work) [place], [place] [phone] [address] (Fax) [phone] Social History Tobacco Use Types Packs/Day Years [...] How often do you attend taoism or protestant services? 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 Take in evening atorvastatin (LIPITOR) Take 1 tablet (20 mg 90 tablet 3 03/2020 20 mg tablet total) by mouth at bedtime. colchicine (COLCRYS) 0.6 Take 1 tablet (0.6 [...] tablet daily. States taking 27 mg daily lancets 6 each daily. 600 each 3 03/07/2019 nortriptyline (PAMELOR) Take 100 mg by mouth [...] mouth 0 0.5 mg tablet at bedtime. acetaminophen (TYLENOL) Take 500 mg by mouth 0 03/25/2021 500 mg tablet every 6 (six) hours as needed for pain. amLODIPine (NORVASC) 10 Take 1 tablet (10 mg 90 tablet 3 05/27/2021 mg tablet total) by mouth daily. carvediloL (COREG) 25 mg Take 1 tablet (25 mg 60 tablet 2 1 07/11/2019 03/25/2021 tablet total) by mouth 2 (two) times a day with meals. doxepin (SINEquan) 10 mg TAKE ONE CAPSULE BY 90 capsule 3 05/28/2021 capsule MOUTH AT BEDTIME furosemide (LASIX) 20 mg Take 1 tablet (20 mg 90 tablet 3 0 02/04/2021 08/26/2021 tablet total) by mouth daily. insulin lispro 100 Inject 8-25 Units 0 05/10/2020 03/25/2021 unit/mL injection under the skin 3 (three) times a day with meals. Depends on PO intake Lantus Solostar U-100 Inject 25 Units 0 03/25/2021 Insulin 100 unit/mL (3 under the skin every mL) injection morning. lisinopriL Take 1 tablet (40 mg 0 05/10/202003/16 (PRINIVIL,ZESTRIL) 40 mg total) by mouth tablet daily. ON HOLD pending re-assessment by PCP oxyCODONE (ROXICODONE) Take 10 mg by mouth 0 09/28/2021 10 mg IR tablet every 4 (four) hours as needed for pain. On a typical day takes 3 tablets in 24 hours pantoprazole (PROTONIX) Take 1 tablet (40 mg 90 tablet 3 03/25/2021 40 mg EC tablet total) by mouth once daily. sodium bicarbonate 650 Take 1 tablet (650 180 tablet 3 02/0401/22/2022 mg tablet mg total) by mouth 2 (two) times a day. sulfamethoxazole-trimeth daily. 0 03/04/2020 03/25/2021 oprim (BACTRIM DS) 800-160 mg per tablet Vitamin D2 1,250 mcg Take 50,000 Units by 0 04/2502/23/2022 (50,000 unit) capsule mouth once a week. Sundays documented as of this encounter Plan of Treatment Not on filedocumented as of this encounter Procedures Procedure Name Priority Date/Time Associated Diagnosis Comme nts LIPID PANEL, S Routine 02/10/2021 8:27 Peripheral Arterial Res ults for AM CDT Disease (HCC) this procedure Diabetes Mellitus Type are i n the 2 With Other results Circulatory section. Complication Hyperglycemic (H CC) 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) CBC WITH DIFFERENTIAL, Routine 02/10/2021 8:27 Peripheral Katya rial Results for B AM CDT Disease (HCC) this procedure Diabetes Mellitus Type are i n the 2 With Other results Circulatory section. Complication Hyperglycemic (H CC) 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) ASPARTATE Routine 02/10/2021 8:27 Peripheral Arterial Resul ts for AMINOTRANSFERASE (AST), AM CDT Disease (HCC) this procedure S/P Diabetes Mellitus Type are i n the 2 With Other results Circulatory section. Complication Hyperglycemic (H CC) 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) SODIUM, S/P Routine 02/10/2021 8:27 Peripheral Arterial Resul ts for AM CDT Disease (HCC) this procedure Diabetes Mellitus Type are i n the 2 With Other results Circulatory section. Complication Hyperglycemic (H CC) 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) POTASSIUM, S/P Routine 02/10/2021 8:27 Peripheral Arterial Res ults for AM CDT Disease (HCC) this procedure Diabetes Mellitus Type are i n the 2 With Other results Circulatory section. Complication Hyperglycemic (H CC) 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) HEMOGLOBIN A1C, B Routine 02/10/2021 8:27 Peripheral Arterial Results for AM CDT Disease (HCC) this procedure Diabetes Mellitus Type are i n the 2 With Other results Circulatory section. Complication Hyperglycemic (H CC) 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) GLUCOSE, FASTING, S/P Routine 02/10/2021 8:27 Peripheral Arter ial Results for AM CDT Disease (HCC) this procedure Diabetes Mellitus Type are i n the 2 With Other results Circulatory section. Complication Hyperglycemic (H CC) 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) CREATININE WITH EGFR, Routine 02/10/2021 8:27 Peripheral Arter ial Results for S/P AM CDT Disease (HCC) this procedure Diabetes Mellitus Type are i n the 2 With Other results Circulatory section. Complication Hyperglycemic (H CC) 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) documented in this encounter Results (ABNORMAL) Hemoglobin A1c (02/10/2021 8:27 AM CDT) P athologist Signature Hemoglobin A1c, 7.1 (H) 4.0 - 5.6 02/10/2021 DTL B % 9:38 AM CDT Comment: Hemoglobin A1c values greater than or eq ual to 6.5 percent are diagnostic for diabetes mellitus. ?? Diagnosis should be confirmed by repeat testing. ??In diabet ic patients, HbA1c goals should be discussed with healthcar e provider. Specimen Anatomical Collection Method Collection Time Receive d Time (Source) Location / / Volume Laterality Blood (Blood, 02/10/2021 8:27 AM 02/11/20 21 8:57 Venous) CDT AM CDT Kemar Redman.S. LAB BLOOD ADD-ON Performing Organization Address City/State/ZIP Code Phon e Number [facility] - [address] [place], [place] [address] [place] [address] [place], [place] [phone] [place] [address] [address] [facility] Sodium (02/10/2021 8:27 AM CDT) P athologist Signature Sodium, S 138 135 - 145 02/10/2021 DTL mmol/L 10:06 AM CDT Specimen Anatomical Collection Method Collection Time Receive d Time (Source) Location / / Volume Laterality Blood (Blood, 02/10/2021 8:27 AM 02/11/20 21 9:07 Venous) CDT AM CDT Kemar DavidB.S. LAB BLOOD ADD-ON Performing Organization Address City/[facility]/ZIP Code Phon e Number [facility] - [address] [place] [address] (ABNORMAL) Potassium (02/10/2021 8:27 AM CDT) P athologist Signature Potassium, S 6.0 (CH) 3.6 - 5.2 02/10/2021 DTL mmol/L 10:06 AM CDT Specimen Anatomical Collection Method Collection Time Receive d Time (Source) Location / / Volume Laterality Blood (Blood, 02/10/2021 8:27 AM 02/11/20 21 9:07 Venous) CDT AM CDT Kemar DavidB.S. LAB BLOOD ADD-ON Performing Organization Address City/State/ZIP Code Phon e Number [facility] - [address] [place] [address] [address] [facility] [place], [place] [phone] [place] [address] (ABNORMAL) Lipid Panel (02/10/2021 8:27 AM CDT) athologist Signature Cholesterol, 102 mg/dL 02/10/2021 DTL Total 10:06 AM CDT Comment: ----REFERENCE VALUE---- Desirable: < 200 Borderline high: 200 - 239 High: > or = 240 Triglycerides 190 (H) mg/dL 02/10/2021 10:06 AM CDT DT L Comment: ----REFERENCE VALUE---- Normal: <150 Borderline high: 150-199 High: 200-499 Very high: > or =500 Cholesterol, HDL, S 32 (L) >=40 mg/dL 02/10/2021 10:06 AM CDT DTL Calculated LDL 32 mg/dL 02/10/2021 10:06 AM CDT D TL Comment: ----REFERENCE VALUE---- Desirable: <100 mg/dL Above Desirable: 100-129 mg/dL Borderline High: 130-159 mg/dL High: 160-189 mg/dL Very High: >=190 mg/dL Cholesterol, Non-HDL, Calculated 70 mg/dL 021 10:06 AM CDT DTL Comment: ----REFERENCE VALUE---- Desirable: <130 Above Desirable: 130-159 Borderline high: 160-189 High: 190-219 Very high: > or =220 Specimen Anatomical Collection Method Collection Time Receive d Time (Source) Location / / Volume Laterality Blood (Blood, 02/10/2021 8:27 AM 02/11/20 21 9:07 Venous) CDT AM CDT Kemar Reyes LAB BLOOD ADD-ON Performing Organization Address City/State/ZIP Code Phon e Number [facility] - [address] [place], [place] [address] [facility] [place] [address] [facility] [address] Glucose, Fasting (02/10/2021 8:27 AM CDT) athologist Signature Glucose, P 87 70 - 100 02/10/2021 DTL mg/dL 10:00 AM CDT Last Intake 12 hr 02/10/2021 DTL 9:04 AM CDT Specimen Anatomical Collection Method Collection Time Receive d Time (Source) Location / / Volume Laterality Blood (Blood, 02/10/2021 8:27 AM 02/11/20 21 9:04 Venous) CDT AM CDT Kemar Redman.SFei LAB BLOOD NON ADD-ON Performing Organization Address [facility] Code Phon e Number [facility] - 200 [place], [place] [address] [facility] D[place], [place] [phone] [place] [address] (ABNORMAL) Creatinine with Estimated GFR (02/10/2021 8:27 AM CDT) Analysis Performed At Patho logist Time Signature Creatinine 3.20 (H) 0.74 - 02/10/2021 DTL 1.35 mg/dL 10:06 AM CDT eGFR-Non 19 (L) >=60 02/10/2021 DTL Black/ mL/min/BSA 10:06 AM CDT Japanese Comment: ----ADDITIONAL INFORMATION---- Estimated GFR calculated using the 2009 CKD_EPI creatinine equation. eGFR-Black/ 22 (L) >=60 mL/min/BSA 2020 10:06 AM CDT DTL Comment: ----ADDITIONAL INFORMATION---- Estimated GFR calculated using the 2009 CKD_EPI creatinine equation. Specimen Anatomical Collection Method Collection Time Receive d Time (Source) Location / / Volume Laterality Blood (Blood, 02/10/2021 8:27 AM 02/11/20 21 9:07 Venous) CDT AM CDT Kemar Redman.S. LAB BLOOD ADD-ON Performing Organization Address City/State/[facility] Phon e Number [facility] - 200 [place], [place] [address] [facility] [place] [address] (ABNORMAL) CBC with Differential, Blood (02/10/2021 8:27 AM CDT) Patholo gist Method Time Signature Hemoglobin 10.3 (L) 13.2 - 02/10/2021 DTL 16.6 g/dL 9:17 AM CDT Hematocrit 32.1 (L) 38.3 - 02/10/2021 DTL 48.6 % 9:17 AM CDT Erythrocytes 3.17 (L) 4.35 - 02/10/2021 DTL 5.65 9:17 AM CDT x10(12)/L MCV 101.3 (H) 78.2 - 02/10/2021 DTL 97.9 fL 9:17 AM CDT RBC Distrib Width 13.9 11.8 - 02/10/2021 DTL 14.5 % 9:17 AM CDT Platelet Count 200 135 - 317 02/10/2021 DTL x10(9)/L 9:17 AM CDT Leukocytes 16.1 (H) 3.4 - 9.6 02/10/2021 DTL x10(9)/L 9:17 AM CDT Neutrophils 11.77 (H) 1.56 - 02/10/2021 DTL 6.45 9:17 AM CDT x10(9)/L Lymphocytes 2.28 0.95 - 02/10/2021 DTL 3.07 9:17 AM CDT x10(9)/L Monocytes 1.35 (H) 0.26 - 02/10/2021 DTL 0.81 9:17 AM CDT x10(9)/L Eosinophils 0.61 (H) 0.03 - 02/10/2021 DTL 0.48 9:17 AM CDT x10(9)/L Basophils 0.08 0.01 - 02/10/2021 DTL 0.08 9:17 AM CDT x10(9)/L Specimen Anatomical Collection Method Collection Time Receive d Time (Source) Location / / Volume Laterality Blood (Blood, 02/10/2021 8:27 AM 02/11/20 21 8:57 Venous) CDT AM CDT Kemar Reyes LAB BLOOD ADD-ON Performing Organization Address City/State/ZIP Code Phon e Number [facility] - [address] [place], [place] [address] [facility] [place] [address] [facility] [address] AST (Aspartate Aminotransferase) (02/10/2021 8:27 AM CDT) [facility] gist Method Time Signature Aspartate 18 8 - 48 02/10/2021 DTL Aminotransferase U/L 10:06 AM CDT (AST), S Specimen Anatomical Collection Method Collection Time Receive d Time (Source) Location / / Volume Laterality Blood (Blood, 02/10/2021 8:27 AM 02/11/20 21 9:07 Venous) CDT AM CDT Kemar Reyes LAB BLOOD ADD-ON Performing Organization Address City/State/ZIP Code Phon e Number [facility] - [address] [place], [place] [address] [facility] [place] [address] [facility] [address] documented in this encounter Visit Diagnoses Diagnosis Peripheral Arterial Disease (HCC) Diabetes Mellitus Type 2 With Other Circ ulatory Complication Hyperglycemic (HCC) Atherosclerosis Arteriosclerosis Obliter ans Lower Extremity (HCC) documented in this encounter Additional Health Concerns Assessment Noted Time PHQ-9 Depression Total Score: 3 01/03/2018 10:38 AM CD T documented as of this encounter Care Teams Embedded Linux Engineer Relationship Specialty Start Date End Date Elsewhere, Pcp PCP - General Family Medicine 01/29/20 documented as of this encounter
--- OUTSIDE RECORDS SUMMARY | 2022-03-16 12:22 | XMS_ITS | Encounter Summary ---
:[address] [facility] Address [address] [place] [address] Care Team Providers Name Role Phone Elsewhere, Pcp Primary Care Provider Unavailable Reason for Referral Outpatient (Routine) - Closed Specialty Diagnoses / Procedures Referred By Contact Refer red To Contact Diagnoses Peripheral Arterial Disease (HCC) Diabetes Mellitus Type 2 With Other Circulatory Complication Hyperglycemic (HCC) 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) Kemar Velásquez M.B.B.S. [facility] Procedures US Lower Extremity Arteries Bilateral [address] [place] [address] Referral ID Status Reason Start Date Expiration Date Visits Requ ested Visits Authorized [id number] Closed 08/04/2020 08/04/2021 1 1 Reason for Visit Outpatient (Routine) - Closed Specialty Diagnoses / Procedures Referred By Contact Refer red To Contact Diagnoses Peripheral Arterial Disease (HCC) Diabetes Mellitus Type 2 With Other Circulatory Complication Hyperglycemic (HCC) 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) Kemar Velásquez M.B.B.S. [facility] Procedures US Lower Extremity Arteries Bilateral [address] [place] [address] Referral ID Status Reason Start Date Expiration Date Visits Requ ested Visits Authorized [id number] Closed 08/04/2020 08/04/2021 1 1 Encounter Details Date Type Department Care Team Description 02/06/2021 Hospital Encounter Department of Kemar Velásquez Periphe ral Arterial Disease (HCC); Radiology, Santiago Reyes Diabetes Mellitus Type 2 With Other Circ ulatory Complication Hyperglycemic (HCC); Building, in [address] [place] [address] Atherosclerosis Arteriosclerosis Obliter ans Lower Extremity (HCC) [facility] [address] 200 [facility] [phone] [place], [place] (Work) [address] [phone] Social History Tobacco Use Types Packs/Day Years [...] week 03/25/2021 How often do you attend evangelical or jain services? Never 03/25/2021 Do you belong to any clubs or organizations such as evangelical N o 03/25/2021 groups, unions, fraternal or [...] or the highest technical, or vocational p senthilram degree you have received? 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 blood sugar diagnostic FOR TESTING BLOOD 600 strip 3 201902/10/2021 (Accu-Chek Guide test SUGARS 6 TIMES DAILY strips) strips carvediloL (COREG) 25 mg Take 1 tablet [...] Lantus Solostar U-100 Inject 25 Units 0 1 03/25/2021 Insulin 100 unit/mL (3 under the skin every mL) injection morning. lisinopriL Take 1 tablet (40 mg 0 05/10/202003/16 (PRINIVIL,ZESTRIL) 40 mg total) by mouth tablet daily. ON HOLD pending re-assessment by PCP nicotine (Nicoderm CQ) Apply 28 mg (1 x 21 14 patch 5 04/1602/10/2021 21 mg/24 hr patch mg patch and 1 x 7 mg patch) daily for 4-6 weeks, then taper in 7-14 mg steps every 2-6 weeks until off. oxyCODONE (ROXICODONE) Take 10 mg by mouth [...] Name Priority Date/Time Associated Diagnosis Comme nts US LOWER RAD - Routine 02/06/2021 3:29 Peripheral Arterial Resu lts for EXTREMITY (most inpatients PM CDT Disease (HCC) this procedure ARTERIES and all Diabetes Mellitus Type are i n the BILATERAL outpatients) 2 With Other results Circulatory section. Complication Hyperglycemic (H CC) 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) documented in this encounter Results US Lower Extremity Arteries Bilateral (02/06/2021 3:29 PM CDT) Anatomical Region Laterality Modality Lower Extremity, Ultrasound RST LOS, Ultrasound ARZ LOS, Rodríguez ateral Ultrasound Ultrasound FLA LOS, Procedural Specimen (Source) Anatomical Collection Method Collection Time Re ceived Time Location / / Volume Laterality 02/06/2021 4:39 PM CDT Impressions 02/06/2021 5:00 PM CDT 1. Postoperative changes of left femoral endarterectomy with patch angioplasty. 2. The bilateral SFA stents are patent w ith no significant stenosis. 3. Again seen are stenoses within the le ft anterior tibial and posterior tibial arteries. Narrative 02/06/2021 5:00 PM CDT EXAM: US LOWER EXTREMITY ARTERIES BILATERAL Exam performed with color and spectral D oppler analysis. COMPARISON: Ultrasound dated 08/04/2020. FINDINGS: Ultrasound examination of both lower ext remities with Doppler is compared to prior ultrasound dated 08/04/2020. RIGHT: ??The right common femoral and pr oximal deep femoral arteries are patent with no significant stenosis. The right superficial femoral artery stent is patent with no significant stenosis. The right popliteal artery is patent with no significant stenosis. LEFT: ??Postoperative changes of left fe moral endarterectomy with patch angioplasty. The left common femoral and proximal deep femoral arteries are patent with no significant stenosis. The left superficial femoral artery stent is patent with no significant stenosis. The left popliteal artery is patent with no significant stenosis. Elevated veloci ties in the left proximal posterior tibial artery (251 cm/s; previously 358 cm/s), again consistent with stenosis. Elevated velocities in the left proximal to mid anterior tibial artery (179 cm/s; previously 187 cm/s), consistent w ith stable stenosis. Procedure Note Veronica Kitchen M.D. - 02/06/2021Formatti ng of this note might be different from the original. EXAM: US LOWER EXTREMITY ARTERIES BILATE RAL Exam performed with color and spectral D oppler analysis. COMPARISON: Ultrasound dated 08/04/2020. FINDINGS: Ultrasound examination of both lower ext remities with Doppler is compared to prior ultrasound dated 08/04/2020. RIGHT: The right common femoral and prox imal deep femoral arteries are patent with no significant stenosis. The right superficial femoral artery stent is patent with no significant stenosis. The right popliteal artery is patent with no significant stenosis. LEFT: Postoperative changes of left femo ral endarterectomy with patch angioplasty. The left common femoral and proximal deep femoral arteries are patent with no significant stenosis. The left superficial femoral artery stent is patent with no significant stenosis. The left popliteal artery is patent with no significant stenosis. Elevated veloci ties in the left proximal posterior tibial artery (251 cm/s; previously 358 cm/s), again consistent with stenosis. Elevated velocities in the left proximal to mid anterior tibial artery (179 cm/s; previously 187 cm/s), consistent w ith stable stenosis. IMPRESSION: 1. Postoperative changes of left femoral endarterectomy with patch angioplasty. 2. The bilateral SFA stents are patent w ith no significant stenosis. 3. Again seen are stenoses within the le ft anterior tibial and posterior tibial arteries. Kemar Reyes IMG US PROCEDURES documented in this encounter Visit Diagnoses Diagnosis Peripheral Arterial Disease (HCC) Diabetes Mellitus Type 2 With Other Circ ulatory Complication Hyperglycemic (HCC) Atherosclerosis Arteriosclerosis Obliter ans Lower Extremity (HCC) documented in this encounter Additional Health Concerns Assessment Noted Time PHQ-9 Depression Total Score: 3 01/03/2018 10:38 AM CD T documented as of this encounter Care Teams Warehouse Picker Relationship Specialty Start Date End Date Elsewhere, Pcp PCP - General Family Medicine 01/29/20 documented as of this encounter
--- OUTSIDE RECORDS SUMMARY | 2022-03-16 12:22 | XMS_ITS | Encounter Summary ---
:1950 Author Organization [facility] Address [address] [place] [address] Care Team Providers Name Role Phone Elsewhere, Pcp Primary Care Provider Unavailable Encounter Details Date Type Department Care Team Description 10/02/2020 Orders Only Division of Nephrology and Dilan [place]on Hypertension in [place], ., D.O. [place] [address] [facility] [address] [place] [phone] (Wo rk) Social History Tobacco Use Types [...] How often do you attend yazidi or episcopal services? Never 03/25/2021 Do you [...] place to sleep or slept in a retirement (including now)? Education Answer Date Recorded What is the highest level of school Associate degree: migdalia muller, 04/30/2019 you have completed or the highest technical, or vocational amy davis degree you have received? 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
--- OUTSIDE RECORDS SUMMARY | 2022-03-16 12:22 | XMS_ITS | Encounter Summary ---
:1950 Author Organization [facility] Address [address] [place] [address] Care Team Providers Name Role Phone Elsewhere, Pcp Primary Care Provider Unavailable Reason for Visit Reason Comments Med Refill Encounter Details Date Type Department Care Team Description 08/25/2020 Refill Department of Family Medicine, Bambi Adler Med Refill [facility], in Renee Phillips M.D. [place] [address] [place] [address] [place] [address] [phone] Social History Tobacco Use Types Packs/Day Years [...] week 03/25/2021 How often do you attend yarsanism or pentecostal services? 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
--- OUTSIDE RECORDS SUMMARY | 2022-03-16 12:22 | XMS_ITS | Encounter Summary ---
:[address] [facility] Address [address] [place] [address] Care Team Providers Name Role Phone Elsewhere, Pcp Primary Care Provider Unavailable Reason for Visit Appointment Request (Routine) - Closed Specialty Diagnoses / Procedures Referred By Contact Refer red To Contact Nephrology and Hypertension Referral ID Status Reason Start Date Expiration Date Visits Requ ested Visits Authorized [id number] Closed 01/01/2021 01/01/2022 1 1 Encounter Details Date Type Department Care Team Description 02/04/2021 External Division of [facility] Chronic Kidney Disease Stage 4 Glomerular Filtration Rate 15-29 (HCC) (Primary Dx); Outreach Nephrology and , Hui Reddy, Anemia Of Chr onic Renal Disease; Hypertension 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 Hyperparathyroidism Secondar y (HCC) [place] [address] Social History Tobacco Use Types Packs/Day Years [...] week 03/25/2021 How often do you attend jewish or anglican services? Never 03/25/2021 Do you belong to any clubs or organizations such as jewish N o 03/25/2021 groups, unions, fraternal or [...] the highest level of school Associate degree: arsalanalivia muller, 04/30/2019 you have completed or the highest technical, or vocational p susan degree you have received? 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 - 02/04/2021 3:15 PM CDT Subjective: Chief Complaint/Reason for Visit [place] CKD follow up History of Present Illness: Mr. Walton is a 71 y.o. male who presents for ongoing evaluation of chronic kidney disease. He was last seen in the [place] CKD visit by Dr. Menon on 09/29/20. He returns today reporting he feelswell and denies any signs or symptoms of uremia. He does report increased lower extremity swelling. In discussion he does not think the chlorthalidone helps increase his urination. Since his last appointment in nephrology he has started using the [employer] continuous glucose monitor. He reports this has helped control his blood sugars much better and is now taking less basal insulin. He is not followingany specific renal diet and does not follow a low sodium diet. His last renal ultrasound was 04/2020and showed: 1. Negative for renal artery stenosis where seen. Note that the bilateral renal arterieswere segmentally visualized due to obscuring bowel gas. 2. Increased echogenicity and elevated resistive indices in the bilateral kidneys, which can be seen with chronic renal parenchymal disease. He does not check his blood pressures at home. He has had a sleep study he reports it was negative. Review of Systems Cardiovascular: Positive for swelling in the legs or feet. Negative for chest pain, pressure or tightness. The following systems were negative: Constitutional, Respiratory, GI, Objective: Constitutional Appearance: Normal appearance. Cardiovascular Rate and Rhythm: Normal rate and regular rhythm. Heart sounds: Normal heart sounds. Pulmonary Effort: Pulmonary effort is normal. Breath sounds: Normal breath sounds. Musculoskeletal Right lower le+ Pitting Edema present. Left lower le+ Pitting Edema present. Skin General: Skin is warm and dry. Neurological Mental Status: He is alert and oriented to person, place, and time. Psychiatric Mood and Affect: Mood normal. Behavior: Behavior normal. Thought Content: Thought content normal. Vitals: 02/04/21 1616 02/04/21 1617 BP: 138/72 (!) 180/72 BP Location: Left arm Right arm Assessment/Plan: #1 Chronic kidney Disease (CKD) stage 4 secondary to diabetes and hypertension GFR is 25 mL/min. BUN is 34 mg/dL. He does not display signs of uremia today. Signs and symptoms ofuremia reviewed today. Hyperkalemic today with potassium of 5.5. He is eating lots of viri and tomatoes. Discussed a low potassium diet and will be changing his chlorthalidone to lasix. #2 CKD treatment options Not discussed today #3 Hypertension Blood pressure discrepancy between left and right arm. Right arm showing BP almost at goal and left arm elevated. This likely has to do with his vascular issues. He does not have any pain, numbness, orwounds in his left hand or arm. He has good cap refill <2 sec and pulses are normal. Will continue to monitor and may need to see vascular. His proteinuria is elevated at 1175 for albumin to creat ratio. LE edema is increasing. His eGFR is low and at this time I am not sure his chlorthalidone is working. Stop chlorthalidone and start Lasix 20 mg daily. Recheck labs in one week. #4Anemia of CKD Hemoglobin at goal for CKD stage 4 at 10.3 gm/dl. He is iron replete continue oral iron. #5 Secondary hyperparathyroidism Calcium: acceptable at 8.2 Phosphorus: At goal at 4.3 Phosphate Binder:Not needed at this time. Parathyroid Hormone:Not done Vitamin D Therapy:Continue current dose. #6 Metabolic acidosis Bicarbonate:Bicarbonate low at 16. Bicarbonate Therapy:Start Sodium Bicarbonate 650 mg BID. #7 Diabetes Mellitus 2 Diabetes is mch improved with a A1C today at 7.1%. Congratulated on his efforts. We discussed the CREDENCE trial and the use of a SGLT2 inhibitor. New studies show Dapagliflozin can be used with a eGFR down to 25 ml/min. He would benefit from a SGLT2 inhibitor for his proteinuria control as well as the evidence of slower renal decline and cardiacprotection. He is interested and I will send a message to his PCP who is currently managing his DM. SGLT 2 inhibitors (like Jardiance, Invokana, Farxiga) are approved to be used for GFR 45 or above. However recent data would imply that these agents can safely be used down to GFR of 30. These agents increase glucose loss in urine and cause some weight loss. Their use can be associated with polyuria, p olydipsia, and even dehydration (if patient cannot keep up with water intake). Though initially the GFR mid decline by 3 to 4 points in due course it is renal- protective and reduces the risk of seriouskidney disease by about 15 to 25%. Because of glycosuria there is increase risk of balanitis and UTI. Though rare, diabetic ketoacidosis, osteoporotic fractures, and need for amputation of toes have been reported while using these medications. Patients who have had diabetic ketoacidosis or have had severe urinary tract infection in the past should use these agents very cautiously. Follow-up [place] with lab in 1 week and again in 6 weeks with office visit. documented in this encounter Plan of Treatment Not on filedocumented as of this encounter Visit Diagnoses Diagnosis Chronic Kidney Disease Stage 4 Glomerula r Filtration Rate 15-29 (HCC) - Primary Anemia Of Chronic Renal Disease Hypertension And Chronic Kidney Disease Stage 1 To 4 Diabetes Mellitus Type 2 (HCC) Hyperparathyroidism Secondary (HCC) documented in this encounter Additional Health Concerns Assessment Noted Time PHQ-9 Depression Total Score: 3 01/03/2018 10:38 AM CD T documented as of this encounter Care Teams Carrier Operator Relationship Specialty Start Date End Date Elsewhere, Pcp PCP - General Family Medicine 01/29/20 documented as of this encounter
--- OUTSIDE RECORDS SUMMARY | 2022-03-16 12:22 | XMS_ITS | Encounter Summary ---
:1950 Author Organization [facility] Address [address] [place] [id number] Care Team Providers Name Role Phone Elsewhere, Pcp Primary Care Provider Unavailable Encounter Details Date Type Department Care Team Description 08/04/2020 Hospital Encounter Department of Kemar Velásquez [facility] Arterial Radiology, [facility] (HCC[facility] Building, in [address] [place] [id number] [place], [place] [phone] (Work) [phone] Social History Tobacco Use Types Packs/Day Years [...] How often do you attend taoism or quaker services? 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 Take in evening atorvastatin (LIPITOR) 20 Take 1 tablet (20 90 tablet 3 03/2020 mg tablet mg total) by mouth at bedtime. colchicine (COLCRYS) [...] 03/07/2019 nortriptyline (PAMELOR) Take 100 mg by 5 12/07/19 18 50 mg capsule mouth at bedtime. omeprazole (PriLOSEC) 40 Take 40 mg by mouth [address] capsule every evening. pen needle, diabetic 31 Inject 1 Injection 400 each 3 04/17 gauge x 5/16 needle under the skin daily. Inject 1 injection under the skin 4 times daily pramipexole (MIRAPEX) 0.5 Take 0.5 mg by 0 mg tablet mouth at bedtime. amLODIPine (NORVASC) 10 Take 1 tablet (10 90 tablet 3 12/2505/27/2021 mg tablet mg total) by mouth daily. blood sugar diagnostic FOR TESTING BLOOD 600 strip 3 201902/10/2021 (Accu-Chek Guide test SUGARS 6 TIMES strips) strips DAILY carvediloL (COREG) 25 mg Take 1 tablet (25 60 tablet 2 04/1603/25/2021 tablet mg total) by mouth 2 (two) times a day with meals. chlorthalidone (HYGROTON) Take 1 tablet (25 30 tablet 2 10/02/2020 25 mg tablet mg total) by mouth daily. doxepin (SINEquan) 10 mg TAKE ONE CAPSULE BY 90 capsule 3 05/28/2021 capsule MOUTH AT BEDTIME insulin lispro 100 Inject 8-25 Units 0 05/10/2020 03/25/2021 unit/mL injection under the skin 3 (three) times a day with meals. Depends on PO intake LANTUS SOLOSTAR U-100 Inject 0.4 mL (40 5 pen 11 019 02/04/2021 INSULIN 100 unit/mL (3 Units total) under mL) injection the skin every morning. lisinopriL Take 1 tablet (40 0 05/10/2020 021 (PRINIVIL,ZESTRIL) 40 mg mg total) by mouth tablet daily. ON HOLD pending re-assessment by PCP nicotine (Nicoderm CQ) 21 Apply 28 mg (1 x 21 14 patch 5 1 07/11/2019 02/10/2021 mg/24 hr patch mg patch and 1 x 7 mg patch) daily for 4-6 weeks, then taper in 7-14 mg steps every 2-6 weeks until off. oxyCODONE (ROXICODONE) 10 Take 10 mg by mouth 0 09/28/2021 mg IR tablet every 4 (four) hours as needed for pain. On a typical day takes 3 tablets in 24 hours pantoprazole (PROTONIX) Take 1 tablet (40 90 tablet 3 05/1003/25/2021 40 mg EC tablet mg total) by mouth once daily. spironolactone Take 1 tablet (25 90 tablet 3 06/16/2020 (ALDACTONE) 25 mg tablet mg total) by mouth daily. sulfamethoxazole-trimetho daily. 0 03/04/2020 03/25/2021 prim (BACTRIM DS) 800-160 mg per tablet Vitamin D2 1,250 mcg Take 50,000 Units 0 04/25/20 19 02/23/2022 (50,000 unit) capsule by mouth once a week. Sundays documented as of this encounter Plan of Treatment Not on filedocumented as of this encounter Procedures Procedure Name Priority Date/Time Associated Comments Diagnosis US LOWER RAD - Routine 08/04/2020 9:54 Peripheral Results for this EXTREMITY (most inpatients AM CDT Arterial Disease procedu re are in ARTERIES and all (HCC) the results BILATERAL outpatients) section. documented in this encounter Results US Lower Extremity Arteries Bilateral (08/04/2020 9:54 AM CDT) Anatomical Region Laterality Modality Lower Extremity, Ultrasound RST LOS, Ultrasound ARZ LOS, Rodríguez ateral Ultrasound Ultrasound FLA LOS, Procedural Specimen (Source) Anatomical Collection Method Collection Time Re ceived Time Location / / Volume Laterality 08/04/2020 10:15 AM CDT Impressions 08/04/2020 10:59 AM CDT 1 New mild, less than 50%, stenosis in t he distal right SFA 2. Stable stented right SFA without sten osis. Stable elevated velocities of the right DIRECTOR OF VOCATIONAL GUIDANCE without focal stenosis. 3. Stable stented left SFA without steno sis. 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 4. New high-grade stenosis of the left p roximal HISTORIAN RESEARCH ASSISTANT. Narrative 08/04/2020 10:59 AM CDT EXAM: US LOWER EXTREMITY ARTERIES BILATERAL Exam performed with color and spectral D oppler analysis. COMPARISON: Ultrasound bilateral lower e xtremity 05/03/2019. FINDINGS RIGHT: ??Unchanged elevated velocities t hroughout the common femoral artery without focal stenosis. Stable patent pr oximal superficial femoral artery stent without significant stenosis. New mild, less than 50%, stenosis in the distal superficial femoral artery, below the st ent. LEFT: ??Femoral endarterectomy. The comm on femoral artery, proximal SFA, and profunda femoral arteries are patent wit hout stenosis. Unchanged patent mid superficial femoral artery stent without significant stenosis. The distal superficial femoral artery and popliteal artery are patent without stenosis. High-grade, greater than 70%, stenosis o f the proximal posterior tibial artery, new since the prior exam. Stable moderat e stenosis in the proximal anterior tibial artery ( 183 cm/s, previously 167 cm/s). MIMI's being performed in Vascular Lab to day. Procedure Note Fletcher Clifton M.D. - 08/04/2020Formatti ng of this note might be different from the original. EXAM: US LOWER EXTREMITY ARTERIES BILATE RAL Exam performed with color and spectral D oppler analysis. COMPARISON: Ultrasound bilateral lower e xtremity 05/03/2019. FINDINGS RIGHT: Unchanged elevated velocities thr oughout the common femoral artery without focal stenosis. Stable patent pr oximal superficial femoral artery stent without significant stenosis. New mild, less than 50%, stenosis in the distal superficial femoral artery, below the st ent. LEFT: Femoral endarterectomy. The common femoral artery, proximal SFA, and profunda femoral arteries are patent wit hout stenosis. Unchanged patent mid superficial femoral artery stent without significant stenosis. The distal superficial femoral artery and popliteal artery are patent without stenosis. High-grade, greater than 70%, stenosis o f the proximal posterior tibial artery, new since the prior exam. Stable moderat e stenosis in the proximal anterior tibial artery ( 183 cm/s, previously 167 cm/s). MIMI's being performed in Vascular Lab to day. IMPRESSION: 1 New mild, less than 50%, stenosis in t he distal right SFA 2. Stable stented right SFA without sten osis. Stable elevated velocities of the right DIRECTOR OF VOCATIONAL GUIDANCE without focal stenosis. 3. Stable stented left SFA without steno sis. 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 4. New high-grade stenosis of the left p roximal HISTORIAN RESEARCH ASSISTANT. Kemar ETIENNE US PROCEDURES documented in this encounter Visit Diagnoses Diagnosis Peripheral Arterial Disease (HCC) documented in this encounter Additional Health Concerns Assessment Noted Time PHQ-9 Depression Total Score: 3 01/03/2018 10:38 AM CD T documented as of this encounter Care Teams Hose Seamer Relationship Specialty Start Date End Date Elsewhere, Pcp PCP - General Family Medicine 01/29/20 documented as of this encounter
--- OUTSIDE RECORDS SUMMARY | 2022-03-16 12:22 | XMS_ITS | Encounter Summary ---
:1950 Author Organization [facility] Address [address] [place] [address] Care Team Providers Name Role Phone Elsewhere, Pcp Primary Care Provider Unavailable Reason for Visit Outpatient (Routine) - Closed Specialty Diagnoses / Procedures Referred By Contact Refer red To Contact Diagnoses Peripheral Arterial Disease (HCC) Diabetes Mellitus Type 2 With Other Circulatory Complication Hyperglycemic (HCC) 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) Kemar Velásquez M.B.B.S. [facility] Procedures Lower Extremity Arterial (MIMI) - Standard Protocol Lower Extremity Arterial (MIMI) - Exercise (Claudication) [address] [place] [address] Referral ID Status Reason Start Date Expiration Date Visits Requ ested Visits Authorized [id number] Closed 08/04/2020 08/04/2021 1 1 Encounter Details Date Type Department Care Team Description 02/06/2021 Hospital Encounter Department of Kemar Velásquez, Katherine ral Arterial Disease (HCC); Vascular Medicine M.B.B.S. Diabetes Mellitus Type 2 With Other Circ ulatory Complication Hyperglycemic (HCC); in [place], [address] [facility] Atherosclerosis Arteriosclerosis Obliter ans Lower Extremity (HCC) [place], [place] [address] [facility] [id number] [place], [place] [phone] (Work) [phone] Social History Tobacco Use Types Packs/Day Years [...] How often do you attend quaker or moravian services? Never 03/25/2021 Do you [...] place to sleep or slept in a correction (including now)? Education Answer Date Recorded What is the highest level of school Associate degree: migdalia muller, 04/30/2019 you have completed or the highest technical, or vocational p susan degree you have received? 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 Complication Hyperglycemic (H CC) 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) documented in this encounter Results LOWER EXTREMITY ARTERIAL - STANDARD PROTOCOL (02/06/2021 4:16 PM CDT) Anatomical Region Laterality Modality Other Specimen (Source) Anatomical Collection Method Collection Time Re ceived Time Location / / Volume Laterality 02/06/2021 3:00 PM CDT Narrative 02/06/2021 3:00 PM CDT Right: Doppler Waveforms: ? Normal at all levels evaluated. ?? Resting Index: ? MIMI (PT)- ??0 .95 ?MIMI (DP)- ??0.94 ?TBI - ??0.66 ?? Post-exercise MIMI: ? 0.53 ??Post-Exercise CF Doppler: ? Abnormal. ?? Left: Doppler Waveforms: ? Normal at all levels evaluated. ?? Resting Index: ? MIMI (PT)- ??0.93 ?MIMI (DP)- ??0.97 ?TBI- ??0.64 ?? Post- exercise MIMI: ? 0.62 ??Post-Exercise CF Doppler: ? Abnormal. ?? General: Patient performed 50 heel lifts . ??(Standard protocol: ??50 heel lifts). Onset of symptoms at 21 heel lifts. ??Heel lifts performed instead of treadmill testing due to patient recently falling. Heel lifts terminated at completion of protocol. ?? Conclusions: Mild peripheral arterial di sease at aortoiliac level bilaterally. Heel lifts performed instead of treadmill testing due to risk of fall. Patient performed 50 heel lifts with symptoms of bilateral calf and thigh tightness. Heel lifts terminated at completion of protocol. Wh en compared to previous study from 08/04/2020, no significant changes in resting ankle brachial index and Doppler waveforms noted. ??Duplex: Postoperative changes of left femoral endarterectomy with patch angioplasty. The bilateral SFA stents ar e patent with no significant stenosis. Again seen are stenoses within the left anterior tibial and posterior tibial arteries. Procedure Note Edgar Yarbrough M.D. - 02/06/2021Formatti ng of this note might be different from the original. Right: Doppler Waveforms: Normal at all levels evaluated. Resting Index: MIMI (PT)- 0.95 MIMI (DP)- 0.94 TBI- 0.66 Post-exercise MIMI: 0.53 Post-Exercise CF Doppler: Abnormal. Left: Doppler Waveforms: Normal at all l evels evaluated. Resting Index: MIMI (PT)- 0.93 MIMI (DP)- 0.97 TBI- 0.64 Post-exercise MIMI: 0.62 Post-Exercise CF Doppler: Abnormal. General: Patient performed 50 heel lifts . (Standard protocol: 50 heel lifts). Onset of symptoms at 21 heel lifts. Heel lifts performed instead of treadmill testing due to patient recently falling. Heel lifts terminated at completion of protocol. Conclusions: Mild peripheral arterial di sease at aortoiliac level bilaterally. Heel lifts performed instead of treadmill testing due to risk of fall. Patient performed 50 heel lifts with symptoms of bilateral calf and thigh tightness. Heel lifts terminated at completion of protocol. Wh en compared to previous study from 08/04/2020, no significant changes in resting ankle brachial index and Doppler waveforms noted. Duplex: Postoperative changes of left femoral endarterectomy with patch angioplasty. The bilateral SFA stents ar e patent with no significant stenosis. Again seen are stenoses within the left anterior tibial and posterior tibial arteries. Kemar Reyes CV VASCULAR PROCEDURES documented in this encounter Visit Diagnoses Diagnosis Peripheral Arterial Disease (HCC) Diabetes Mellitus Type 2 With Other Circ ulatory Complication Hyperglycemic (HCC) Atherosclerosis Arteriosclerosis Obliter ans Lower Extremity (HCC) documented in this encounter Additional Health Concerns Assessment Noted Time PHQ-9 Depression Total Score: 3 01/03/2018 10:38 AM CD T documented as of this encounter Care Teams Door Patcher Relationship Specialty Start Date End Date Elsewhere, Pcp PCP - General Family Medicine 01/29/20 documented as of this encounter
--- OUTSIDE RECORDS SUMMARY | 2022-03-16 12:22 | XMS_ITS | Encounter Summary ---
:1950 Author Organization [facility] Address [address] [place] [address] Care Team Providers Name Role Phone Elsewhere, Pcp Primary Care Provider Unavailable Reason for Visit Outpatient (Routine) - Closed Specialty Diagnoses / Procedures Referred By Contact Refer red To Contact Vascular Medicine Diagnoses Peripheral Arterial Disease (HCC) Diabetes Mellitus Type 2 With Other Circulatory Complication Hyperglycemic (HCC) 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) [facility] [address] [place] [address] Referral ID Status Reason Start Date Expiration Date Visits Requ ested Visits Authorized [id number] Closed 08/04/2020 08/04/2021 1 1 Encounter Details Date Type Department Care Team Description 02/10/2021 Comprehensive Visit Department of [facility], Follow Up Examination Status Post Surgery (Primary Dx); Vascular Medicine Jayjay A, Peripheral Arterial Disease (HCC); in [place], P.A.-C. Diabetes Mellitus Type 2 With Other Circ ulatory Complication Hyperglycemic (HCC); [place] [address] [facility] Hypertensive Chronic Kidney Disease (CKD ) Stage 3b Glomerular Filtration Rate (GFR) 30 To 44 (HCC) [address] [place] [id number] [phone] Social History Tobacco Use Types Packs/Day Years [...] How often do you attend evangelical or christian services? Never 03/25/2021 Do you belong to [...] place to sleep or slept in a snf (including now)? Education Answer Date Recorded What is the highest level of school Associate degree: migdalia muller, 04/30/2019 you have completed or the highest technical, or vocational p susan degree you have received? 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 - 02/10/2021 10:30 AM CDT REFERRAL SOURCE Kemar Velásquez M.B.B.S. [address] [place] [address] SUBJECTIVE CHIEF COMPLAINT / REASON FOR VISIT Stenting HISTORY OF PRESENT ILLNESS Follow Up Examination Status Post Surgery Peripheral Arterial Disease (HCC) Diabetes Mellitus Type 2 With Other Circulatory Complication Hyperglycemic (HCC) Hypertensive Chronic Kidney Disease (CKD) Stage 3b Glomerular Filtration Rate (GFR) 30 To 44 (HCC) Mr. Walton is a 71 y.o. male that I am seeing today for follow-up of his stenting. His Siria is with today. It was nice to meet them both. He last saw vascular surgery in July 2020 and is here for six month follow-up. The patient has had multiple interventions for [...] The patient reports that over the last year his legs feel tired, hurt, and decreased strength when he is active and he can fall or at least have difficulty getting up if he kneels down. He can walk maybe a couple hundred feet at the most before having to stop. He has to stop for 5 or 10 minutes and then can go shorter distance. It seems like his left calf bothers him more than his right but they bothbother him. He has not had rest pain but is difficult to know for sure because he has restless leg syndrome. Patient does heal but does take a long time if he has a break in the skin. He did say roughly one year ago he had an infection in his foot which led to toe amputations and he was never able to d o physical therapy because of COVID restrictions so I feel that he may not have ever regained his strength since that hospitalization. I'm unsure if his symptoms are all due to peripheral arterial disease or combination of PA D and deconditioning. Patient's history includes TIA in 2009 without recurrence, asymptomatic CAD with stress echo showingmyocardia ischemia, diabetes, bilateral carotid bruits without evidence of stenosis in 2017, CKD, hypertension, hyperlipidemia. The patient has had nicotine dependence in the past. Patient denies chest pain or significant dyspnea. [...] history of present illness. OBJECTIVE VITALS BP 101/65 (BP Location: Left arm, Patient Position: Sitting) Pulse 72 Wt 84.4 kg BMI 27.56 kg/m?? Body mass index is 27.56 kg/m??. PHYSICAL EXAMINATION General: In no acute distress Vessels: (Right/Left): Carotid bruit/bruit. Radial 3+/3+. Femoral 3+/3+. Posterior tibial 3+/3+. Heart: Regular rate and rhythm. Lungs: Clear to auscultation. Abdomen: Soft and non-tender. No masses palpable. No bruits. Extremities: No edema. Psychiatric: Pleasant. DIAGNOSTIC REVIEW All labs and diagnostic studies were reviewed. Lab abnormalities include low hemoglobin 10.3, MCV of101.3, white count of 16.1, potassium six, creatinine 3.2, GFR 19, A1c of 7.1, triglycerides 190. Vascular lab compared to the one from July shows no significant change in resting ABIs they are allroughly 0.95 but we have no post exercise ABIs to compare to. His right is 0.5 in his left is 0.6. Patient did heel lifts and was able to complete all 50 had worsening symptoms of left greater than right calf discomfort. Ultrasound: IMPRESSION: 1. The left common iliac artery stent is patent with elevated velocities measuring up to 387 cm/s (previously 409 cm/s), suggestive of stable stenosis. 2. The left external iliac artery stent is patent with elevated velocities measuring up to 365 cm/s (previously 257 cm/s), suggestive of stenosis. 3. Stable postoperative changes of left femoral endarterectomy. 4. Postoperative changes of left femoral endarterectomy with patch angioplasty. 5. The bilateral SFA stents are patent with no significant stenosis. 6. Again seen are stenoses within the left anterior tibial and posterior tibial arteries. ASSESSMENT / PLAN #1 Follow Up Examination Status Post Surgery #2 Peripheral Arterial Disease (HCC) #3 Diabetes Mellitus Type 2 With Other Circulatory Complication Hyperglycemic (HCC) #4 Hypertensive Chronic Kidney Disease (CKD) Stage 3b Glomerular Filtration Rate (GFR) 30 To 44 (HCC) There are a number of things we need to follow-up today. Patient sounds like he has worsening symptoms in his legs and he definitely has vascular disease by ultrasound and vascular lab. However we are limited by his worsening creatinine. He will see his primary provider in two days and we recommended hd discuss physical therapy to help strengthen his legs and work on balance which then could help determine if is claudication will improve with walking or not. If he does not improve, we will have to reassess his renal function at that time and see if we could do a CTA with runoff. He does not sound like he has critical limb ischemia at this time so that we can be monitored for now. I did contact hisnephrology provider and she will contact him later today about his worsening renal function and potassium of 6.0. Patient's white count is elevated which is difficult to explain as he is asymptomatic, he will watch for symptoms and will discuss with his primary provider later this week. All questions answered. Total time spent with patient care: 45 minutes. Jayjay Pak P.A.-C. documented in this encounter Plan of Treatment Not on filedocumented as of this encounter Visit Diagnoses Diagnosis Follow Up Examination Status Post Surger y - Primary Peripheral Arterial Disease (HCC) Diabetes Mellitus Type 2 With Other Circ ulatory Complication Hyperglycemic (HCC) Hypertensive Chronic Kidney Disease (CKD ) Stage 3b Glomerular Filtration Rate (GFR) 30 To 44 (HCC) documented in this encounter Additional Health Concerns Assessment Noted Time PHQ-9 Depression Total Score: 3 01/03/2018 10:38 AM CD T documented as of this encounter Care Teams Press Setter Relationship Specialty Start Date End Date Elsewhere, Pcp PCP - General Family Medicine 01/29/20 documented as of this encounter
--- OUTSIDE RECORDS SUMMARY | 2022-03-16 12:22 | XMS_ITS | Encounter Summary ---
:1950 Author Organization [facility] Address [address] [place] [address] Care Team Providers Name Role Phone Elsewhere, Pcp Primary Care Provider Unavailable Reason for Referral Outpatient (Routine) - Closed Specialty Diagnoses / Procedures Referred By Contact Refer red To Contact Diagnoses Peripheral Arterial Disease (HCC) Kemar Velásquez M.B.B.S. [facility] Procedures Lower Extremity Arterial (MIMI) - TCPO2 (Wound) [address] [place] [address] Referral ID Status Reason Start Date Expiration Date Visits Requ ested Visits Authorized [id number] Closed 09/17/2019 09/16/2020 1 1 Reason for Visit Outpatient (Routine) - Closed Specialty Diagnoses / Procedures Referred By Contact Refer red To Contact Diagnoses Peripheral Arterial Disease (HCC) Kemar Velásquez M.B.B.S. [facility] Procedures Lower Extremity Arterial (MIMI) - TCPO2 (Wound) [address] [place] [address] Referral ID Status Reason Start Date Expiration Date Visits Requ ested Visits Authorized [id number] Closed 09/17/2019 09/16/2020 1 1 Encounter Details Date Type Department Care Team Description 08/04/2020 Hospital Encounter Department of Kemar Velásquez Periphe ral Arterial Vascular Medicine in [facility] ([facility] [place], [place] [address] [facility] [address] [place] [phone] Social History Tobacco Use Types Packs/Day Years [...] week 03/25/2021 How often do you attend hindu or caodaism services? Never 03/25/2021 Do you belong to any clubs or organizations such as hindu N o 03/25/2021 groups, unions, fraternal or [...] place to sleep or slept in a penitentiary (including now)? Education Answer Date Recorded What is the highest level of school Associate degree: migdalia muller, 04/30/2019 you have completed or the highest technical, or vocational p susan degree you have received? 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 acetaminophen (TYLENOL) Take 500 mg by 0 03/25/2021 500 mg tablet mouth every 6 (six) hours as needed for [...] Associated Diagnosis Comme nts LOWER EXTREMITY Routine 08/04/2020 11:10 AM Peripheral Arteria l Results for this ARTERIAL (MIMI) - CDT Disease (HCC) procedure are in TCPO2 (WOUND) the results section. documented in this encounter Results Lower Extremity Arterial (MIMI) - TCPO2 (Wound) (08/04/2020 11:10 AM CDT) Anatomical Region Laterality Modality Other Specimen (Source) Anatomical Collection Method Collection Time Re ceived Time Location / / Volume Laterality 08/04/2020 10:11 AM CDT Narrative 08/04/2020 10:11 AM CDT Right: Doppler Waveforms: ? Normal at all levels evaluated. ?? Resting Index: ? MIMI (PT)- ??0 .85 ?MIMI (DP)- ??0.90 ?TBI - ??0.62 ?? TcPO2: ? Values as noted. ?? Left: Doppler Waveforms: ? Normal at all levels evaluated. ?? Resting Index: ? MIMI (PT)- ??0.83 ?MIMI (DP)- ??0.85 ?TBI- ??0.58 ?? TcPO2: ? Values as noted. ?? Conclusions: Right: Ankle/brachial index is borderline to mildly abnormal with normal Doppler waveforms at rest. TcPO2 are normal at all sites. Toe/brachial index ??is abnormal. ?? Left: Ankle/brachial index is mildly abnormal with normal Dop pler waveforms at rest. TcPO2 are normal at the calf a nd distal foot, and mildly reduced at the proximal foot. Toe/brachial index ??is abnormal. ??Compared with the previous study done on 09/17/2019 no significant changes have occurred, ??TBI are lower, this could represent disease or vaso spasm ??A dupl ex ultrasound done today showed ??a new stenosis in the distal right SFA that is less than 50%, ??stable patent stents in the right and left SFA without focal jose nosis, high-grade stenosis of the left P TA, new and stable moderate stenosis of the proximal GINA. Procedure Note Stormy Ashby M.D., M.S. - 08/05/19 21 Right: Doppler Waveforms: Normal at all levels evaluated. Resting Index: MIMI (PT)- 0.85 MIMI (DP)- 0.90 TBI- 0.62 TcPO2: Values as noted. Left: Doppler Waveforms: Normal at all l evels evaluated. Resting Index: MIMI (PT)- 0.83 MIMI (DP)- 0.85 TBI- 0.58 TcPO2: Values as noted. Conclusions: Right: Ankle/brachial index is borderline to mildly abnormal with normal Doppler waveforms at rest. TcPO2 are normal at all sites. Toe/brachial index is abnormal. Left: Ankle/brachial index is mildly abnormal with normal Doppler waveforms at rest. TcPO2 are normal at the calf a nd distal foot, and mildly reduced at the proximal foot. Toe/brachial index is abnormal. Compared with the previous study done on 09/17/2019 no significant changes have occurred, TBI are lower, this could represent disease or vaso spasm A duplex ultrasound done today showed a new stenosis in the distal right SFA that is less than 50%, stable patent stents in the right and left SFA without focal stenosis, high-grade stenosis of the left TUTORING CLINICIAN, new and stable moderate stenosis of the proximal GINA. Kemar Reyes CV VASCULAR PROCEDURES documented in this encounter Visit Diagnoses Diagnosis Peripheral Arterial Disease (HCC) documented in this encounter Additional Health Concerns Assessment Noted Time PHQ-9 Depression Total Score: 3 01/03/2018 10:38 AM CD T documented as of this encounter Care Teams Repairer Relationship Specialty Start Date End Date Elsewhere, Pcp PCP - General Family Medicine 01/29/20 documented as of this encounter
--- OUTSIDE RECORDS SUMMARY | 2022-03-16 12:22 | XMS_ITS | Encounter Summary ---
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 [facility] Procedures US Lower Extremity Arteries Bilateral [address] [place] [address] Referral ID Status Reason Start Date Expiration Date Visits Requ ested Visits Authorized [id number] Closed 08/04/2020 08/04/2021 1 1 Outpatient (Routine) - Closed Specialty Diagnoses / Procedures Referred By Contact Refer red To Contact Diagnoses Follow Up Exam Peripheral Arterial Disease (HCC) Diabetes Mellitus Type 2 With Other Circulatory Complication Hyperglycemic (HCC) 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) Kemar Velásquez M.B.B.S. [facility] Procedures US Aorta Iliac Arteries Left with Doppler [address] [place] [address] Referral ID Status Reason Start Date Expiration Date Visits Requ ested Visits Authorized [id number] Closed 08/04/2020 08/04/2021 1 1 Outpatient (Routine) - Closed Specialty Diagnoses / Procedures Referred By Contact Refer red To Contact Vascular Medicine Diagnoses Peripheral Arterial Disease (HCC) Diabetes Mellitus Type 2 With Other Circulatory Complication Hyperglycemic (HCC) 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) [facility] [address] [place] [phone] Referral ID Status Reason Start Date Expiration Date Visits Requ ested Visits Authorized [id number] Closed 08/04/2020 08/04/2021 1 1 Reason for Visit Outpatient (Routine) - Closed Specialty Diagnoses / Procedures Referred By Contact Refer red To Contact Vascular Surgery Kemar Velásquez M.B.B. SFei [facility] [address] [place] [phone] Referral ID Status Reason Start Date Expiration Date Visits Requ ested Visits Authorized [id number] Closed 09/17/2019 09/16/2020 1 1 Encounter Details Date Type Department Care Team Description 08/04/2020 Office Visit Division of Vascular Kemar Velásquez Perip eral Arterial Disease (HCC) (Primary Dx); and Endovascular M.Faith.S. Diabetes Mellitus Type 2 With Other Circ ulatory Complication Hyperglycemic (HCC); Surgery in [address] Atherosclerosis Arteriosclerosis Obliter ans Lower Extremity (HCC); [place], [place] Follow Up Exam [address] [place] [id number] [place], [place] [phone] (Work) [phone] Social History Tobacco Use Types Packs/Day Years [...] week 03/25/2021 How often do you attend restoration or mosque services? 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 - 08/04/2020 1:20 PM CDT It was a pleasure to meet with and Mrs. Walton. He is a 70-year-old gentleman with longstandinghistory of peripheral arterial disease affecting bilateral lower extremities he has undergone left common and external iliac artery stenting, left common femoral endarterectomy, left tibial angioplasty. He has also undergone a right SFA drug-eluting stent placement. All these procedures were for critical limb threatening ischemia. Today, he does not have any stigmata of peripheral arterial disease. His duplex ultrasound shows patent stents and left femoral artery patch. His MIMI 0.9 on the right and 0.85 on the left. Unfortunately, he continues to smoke cigarettes. I counseled him once again about the hazards of cigarette smoking including stent thrombosis and deterioration of his peripheral arterial disease. I counseled him about the value of having a regular walking program. I think we can transition him to 6 monthly followups in the [facility]. documented in this encounter Miscellaneous Notes Addendum Note - Kyle Correia M.S., R.N. - 08/04/2020 1:20 PM CDT Addended by: KYLE CORREIA on: 08/04/2020 01:43 PM Modules accepted: Orders documented in this encounter Plan of Treatment Scheduled Referrals Name Type Priority Associated Diagnoses Order S [facility] Vascular Medicine - Outpatient Routine Peripheral Arterial E xpected: Vascular Referral Disease (HCC) 02/04/2021 surveillance consult Diabetes Mellitus Ty pe (Approximate), (clinic) 2 With Other Expires: Circulatory 08/05/2023 Complication Hyperglycemic (H CC) 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) documented as of this encounter Results (ABNORMAL) Hemoglobin A1c (02/10/2021 8:27 AM CDT) athologist Signature Hemoglobin A1c, 7.1 (H) 4.0 [...] Address City/State/ZIP Code Phon e Number [facility] - [address] [place], [place] [address] [facility] [place] [address] [facility] [address] Sodium (02/10/2021 8:27 AM CDT) athologist Signature Sodium, S 138 135 - 145 02/10/2021 DTL mmol/L 10:06 AM CDT Specimen Anatomical Collection Method Collection Time Receive d Time (Source) Location / / Volume Laterality Blood (Blood, 02/10/2021 8:27 AM 02/11/20 21 9:07 Venous) CDT AM CDT Kemar DavidB.S. LAB BLOOD ADD-ON Performing Organization Address City/[facility] Phon e Number [facility] - [address] [place] [address] (ABNORMAL) Potassium (02/10/2021 8:27 AM CDT) athologist Signature Potassium, S 6.0 (CH) 3.6 - 5.2 02/10/2021 DTL mmol/L 10:06 AM CDT Specimen Anatomical Collection Method Collection Time Receive d Time (Source) Location / / Volume Laterality Blood (Blood, 02/10/2021 8:27 AM 02/11/20 9:07 Venous) CDT AM CDT Kemar Redman.S. LAB BLOOD ADD-ON Performing Organization Address City/[facility] Phon e Number [facility] - [address] (ABNORMAL) Lipid Panel (02/10/2021 8:27 AM [...] DavidB.S. LAB BLOOD ADD-ON Performing Organization Address City/[facility] Phon e Number [facility] - 200 [place], [place] [address] [facility] [place] [address] Glucose, Fasting (02/10/2021 8:27 AM CDT) P athologist Signature Glucose, P 87 70 - 100 02/10/2021 DTL mg/dL 10:00 AM CDT Last Intake 12 hr 02/10/2021 DTL 9:04 AM CDT Specimen Anatomical Collection Method Collection Time Receive d Time (Source) Location / / Volume Laterality Blood (Blood, 02/10/2021 8:27 AM 02/11/20 21 9:04 Venous) CDT AM CDT Kemar DavidB.S. LAB BLOOD NON ADD-ON Performing Organization Address City/[facility] Phon e Number [facility] - 200 [place], [place] [address] [facility] [place] [address] (ABNORMAL) Creatinine with Estimated GFR (02/10/2021 8:27 AM CDT) Analysis Performed At Patho logist Time Signature Creatinine 3.20 (H) 0.74 - 02/10/2021 DTL 1.35 mg/dL 10:06 AM CDT eGFR-Non 19 (L) >=60 02/10/2021 DTL Black/ mL/min/BSA 10:06 AM CDT Israeli Comment: ----ADDITIONAL INFORMATION---- Estimated GFR calculated using [...] Address City/State/ZIP Code Phon e Number [facility] - [address] [place], [place] [address] [facility] [place] [address] [facility] [address] [facility] (ABNORMAL) CBC with Differential, Blood (02/10/2021 8:27 AM CDT) [facility] gist Method Time Signature Hemoglobin 10.3 (L) [...] Redman.S. LAB BLOOD ADD-ON Performing Organization Address City/[facility] Phon e Number [facility] - [address] AST (Aspartate Aminotransferase) (02/10/2021 8:27 AM CDT) [facility] gist Method Time Signature Aspartate 18 8 - 48 02/10/2021 DTL Aminotransferase U/L 10:06 AM CDT (AST), S Specimen Anatomical Collection Method Collection Time Receive d Time (Source) Location / / Volume Laterality Blood (Blood, 02/10/2021 8:27 AM 02/11/20 21 9:07 Venous) CDT AM CDT Kemar DavidB.S. LAB BLOOD ADD-ON Performing Organization Address City/[facility] Phon e Number [facility] - 200 [place], [place] [address] [place] [address] [place] Lower Extremity Arteries Bilateral (02/06/2021 3:29 [...] tibial and posterior tibial arteries. Kemar Reyes IMSophie US PROCEDURES US Aorta Iliac Arteries Left with Doppler (02/06/2021 3:17 PM CDT) Anatomical Region Laterality Modality Abdomen, Pelvis, Ultrasound RST LOS, Ultrasound ARZ LOS, Lef t Ultrasound Ultrasound FLA LOS, Procedural Specimen (Source) Anatomical Collection Method Collection Time Re ceived Time Location / / Volume Laterality 02/06/2021 6:03 PM CDT Impressions 02/06/2021 6:14 PM CDT 1. The left common iliac artery stent is patent with elevated velocities measuring up to 387 cm/s (previously 409 cm/s), suggestive of stable stenosis. 2. The left external iliac artery stent is patent with elevated velocities measuring up to 365 cm/s (previously 257 cm/s), suggestive of stenosis. 3. Stable postoperative changes of left femoral endarterectomy. Narrative 02/06/2021 6:14 PM CDT EXAM: US AORTA ILIAC ARTERIES LEFT WITH DOPPLER Exam performed with color and spectral D oppler analysis. COMPARISON: Ultrasound dated 08/04/2020. FINDINGS: ??Ultrasound examination of th e left common iliac and external iliac artery stents with Doppler is compared t o prior ultrasound dated 08/04/2020. The left common iliac artery stent is patent with elevated velocities measuring up to 387 cm/s (previously 409 cm/s), sugge stive of stable stenosis. The left external iliac artery stent is patent wi th elevated velocities measuring up to 365 cm/s (previously 257 cm/s), suggesti ve of stenosis. Stable postoperative changes of left femoral endarterectomy. The left common femoral artery and the proximal superficial and deep femoral ar teries are patent. Procedure Note Veronica Kitchen M.D. - 02/06/2021Formatti ng of this note might be different from the original. EXAM: US AORTA ILIAC ARTERIES LEFT WITH DOPPLER Exam performed with color and spectral D oppler analysis. COMPARISON: Ultrasound dated 08/04/2020. FINDINGS: Ultrasound examination of the left common iliac and external iliac artery stents with Doppler is compared t o prior ultrasound dated 08/04/2020. The left common iliac artery stent is patent with elevated velocities measuring up to 387 cm/s (previously 409 cm/s), sugge stive of stable stenosis. The left external iliac artery stent is patent wi th elevated velocities measuring up to 365 cm/s (previously 257 cm/s), suggesti ve of stenosis. Stable postoperative changes of left femoral endarterectomy. The left common femoral artery and the proximal superficial and deep femoral ar teries are patent. IMPRESSION: 1. The left common iliac artery stent is patent with elevated velocities measuring up to 387 cm/s (previously 409 cm/s), suggestive of stable stenosis. 2. The left external iliac artery stent is patent with elevated velocities measuring up to 365 cm/s (previously 257 cm/s), suggestive of stenosis. 3. Stable postoperative changes of left femoral endarterectomy. Kemar Reyes IMG US PROCEDURES documented in this encounter Visit Diagnoses Diagnosis Peripheral Arterial Disease (HCC) - Prim dat Diabetes Mellitus Type 2 With Other Circ ulatory Complication Hyperglycemic (HCC) Atherosclerosis Arteriosclerosis Obliter ans Lower Extremity (HCC) Follow Up Exam Peripheral Arterial Disease (HCC) Diabetes Mellitus Type 2 With Other Circ ulatory Complication Hyperglycemic (HCC) Atherosclerosis Arteriosclerosis Obliter ans Lower Extremity (HCC) Follow Up Exam Peripheral Arterial Disease (HCC) Diabetes Mellitus Type 2 With Other Circ ulatory Complication Hyperglycemic (HCC) Atherosclerosis Arteriosclerosis Obliter ans Lower Extremity (HCC) documented in this encounter Additional Health Concerns Assessment Noted Time PHQ-9 Depression Total Score: 3 01/03/2018 10:38 AM CD T documented as of this encounter Care Teams Vp Scientific Relationship Specialty Start Date End Date Elsewhere, Pcp PCP - General Family Medicine 01/29/20 documented as of this encounter
--- OUTSIDE RECORDS SUMMARY | 2022-03-16 12:22 | XMS_ITS | Encounter Summary ---
:1950 Author Organization [facility] Address [address] [place] [address] Care Team Providers Name Role Phone Elsewhere, Pcp Primary Care Provider Unavailable Reason for Referral Outpatient (Routine) - Closed Specialty Diagnoses / Procedures Referred By Contact Refer red To Contact Diagnoses Follow Up Exam Peripheral Arterial Disease (HCC) Diabetes Mellitus Type 2 With Other Circulatory Complication Hyperglycemic (HCC) 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) Kemar Velásquez M.B.B.S. [place] [facility] Procedures US Aorta Iliac Arteries Left with Doppler [address] [place] [address] Referral ID Status Reason Start Date Expiration Date Visits Requ ested Visits Authorized [id number] Closed 08/04/2020 08/04/2021 1 1 Reason for Visit Outpatient (Routine) - Closed Specialty Diagnoses / Procedures Referred By Contact Refer red To Contact Diagnoses Follow Up Exam Peripheral Arterial Disease (HCC) Diabetes Mellitus Type 2 With Other Circulatory Complication Hyperglycemic (HCC) 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) Kemar Velásquez M.B.B.S. [place] Procedures US Aorta Iliac Arteries Left with Doppler [address] [place] [address] Referral ID Status Reason Start Date Expiration Date Visits Requ ested Visits Authorized [id number] Closed 08/04/2020 08/04/2021 1 1 Encounter Details Date Type Department Care Team Description 02/06/2021 Hospital Encounter Department of Kemar Velásquez, Follow Up Exam ; Radiology, Santiago Reyes Peripheral Arterial Disease (HCC); [facility], in [address] [place] [address] Diabetes Mellitus Type 2 With Other Circ ulatory Complication Hyperglycemic (HCC); [place], [place] Atherosclerosi s Arteriosclerosis Obliterans Lower Extremity (HCC); [place] [address] Follow Up Exam 200 [facility] [phone] [place], [place] (Work) [phone] Social History Tobacco Use Types Packs/Day Years [...] How often do you attend buddhist or synagogue services? 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 Circulatory Complication Hyperglycemic (H CC) 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) documented in this encounter Results US Aorta Iliac Arteries Left with Doppler [...] this encounter Visit Diagnoses Diagnosis Follow Up Exam Peripheral Arterial Disease (HCC) Diabetes Mellitus Type 2 With Other Circ ulatory Complication Hyperglycemic (HCC) Atherosclerosis Arteriosclerosis Obliter ans Lower Extremity (HCC) documented in this encounter Additional Health Concerns Assessment Noted Time PHQ-9 Depression Total Score: 3 01/03/2018 10:38 AM CD T documented as of this encounter Care Teams Computer Bookkeeper Relationship Specialty Start Date End Date Elsewhere, Pcp PCP - General Family Medicine 01/29/20 documented as of this encounter
--- OUTSIDE RECORDS SUMMARY | 2022-03-16 12:22 | XMS_ITS | Encounter Summary ---
:1950 Author Organization [facility] Address [address] [place] [address] Care Team Providers Name Role Phone Elsewhere, Pcp Primary Care Provider Unavailable Encounter Details Date Type Department Care Team Description 06/16/2020 Orders Only Division of Nephrology Haseeb Menon Mellitus Type 2 With Other Circulatory Complication Hyperglycemic (HCC) (Primary Dx); and Hypertension in William Sun D.O. Atherosclerosis Of [place] Arteries Of Le ft Leg With Ulceration Of Unspecified Site (HCC); [place], [place] [address] [facility] Hypertensive Chronic Kidney Disease (CKD ) Stage 3b Glomerular Filtration Rate (GFR) 30 To 44 (HCC); [address] [place], [place] Anemia [place] [address] [phone] Social History Tobacco Use Types Packs/Day Years [...] week 03/25/2021 How often do you attend synagogue or sabianism services? Never 03/25/2021 Do you belong to any clubs or organizations such as synagogue N o 03/25/2021 groups, unions, fraternal or [...] highest level of school Associate degree: migdalia teresachristelle, 04/30/2019 you have completed or the highest technical, or vocational p susan degree you have received? 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
--- OUTSIDE RECORDS SUMMARY | 2022-03-16 12:22 | XMS_ITS | Encounter Summary ---
:1950 Author Organization [facility] Address [address] [place] [address] Care Team Providers Name Role Phone Elsewhere, Pcp Primary Care Provider Unavailable Reason for Visit Appointment Request (Routine) - Closed Specialty Diagnoses / Procedures Referred By Contact Refer red To Contact Nephrology and Hypertension Referral ID Status Reason Start Date Expiration Date Visits Requ ested Visits Authorized [id number] Closed 08/22/2020 08/22/2021 1 1 Encounter Details Date Type Department Care Team Description 09/29/2020 External Outreach Division of [place], Hypertensi ve Chronic Kidney Disease (CKD) Stage 3b Glomerular Filtration Rate (GFR) 30 To 44 (HCC) (Primary Dx); Nephrology and Haseeb Thomas Jr., Osteodystrop hy Renal; Hypertension in D.O. Anemia Of Chronic Renal Disease; [place], [place] [address] [facility] Peripheral Arterial Disease (HCC); [address] [place], [place] Hyperkalemia; [place] [address] Acidosis Metabolic Hyperchloremic; [id number] Diabetes Mellitus Type 2 Wit h Other Circulatory Complication Hyperglycemic (HCC) Social History Tobacco Use Types Packs/Day Years [...] week 03/25/2021 How often do you attend voodoo or hoahaoism services? Never 03/25/2021 Do you belong to any clubs or organizations such as voodoo N o 03/25/2021 groups, unions, fraternal or [...] place to sleep or slept in a half-way (including now)? Education Answer Date Recorded What is the highest level of school Associate degree: migdalia muller, 04/30/2019 you have completed or the highest technical, or vocational p susan degree you have received? 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 - 09/29/2020 3:30 PM CDT Please see scanned in note under document viewer tab for the [facility] [place] [place] outreach visit from this date. documented in this encounter Plan of Treatment Not on filedocumented as of this encounter Visit Diagnoses Diagnosis Hypertensive Chronic Kidney Disease (CKD ) Stage 3b Glomerular Filtration Rate (GFR) 30 To 44 (HCC) - Primary Osteodystrophy Renal Anemia Of Chronic Renal Disease Peripheral Arterial Disease (HCC) Hyperkalemia Acidosis Metabolic Hyperchloremic Diabetes Mellitus Type 2 With Other Circ ulatory Complication Hyperglycemic (HCC) documented in this encounter Additional Health Concerns Assessment Noted Time PHQ-9 Depression Total Score: 3 01/03/2018 10:38 AM CD T documented as of this encounter Care Teams Predictive Maintenance Technician Relationship Specialty Start Date End Date Elsewhere, Pcp PCP - General Family Medicine 01/29/20 documented as of this encounter
--- OUTSIDE RECORDS SUMMARY | 2022-03-16 12:22 | XMS_ITS | Encounter Summary ---
:1950 Author Organization [facility] Address [address] [place] [address] Care Team Providers Name Role Phone Elsewhere, Pcp Primary Care Provider Unavailable Reason for Visit Reason Comments Med Refill Encounter Details Date Type Department Care Team Description 08/21/2020 Refill Department of Family Medicine, Bambi Adler Med Refill [facility], in Renee Phillips M.D. [place] [address] [place] [address] [place] [address] [phone] Social History Tobacco Use Types Packs/Day Years [...] week 03/25/2021 How often do you attend druze or yarsani services? 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 Telephone Encounter - Stacy Spaulding L.PFeiN. - 08/22/2020 1:45 PM CDT There is a message on 01-29-20 that stated he has transferred his care to Dr. Riddle. Telephone Encounter - Brittany Blake - 08/22/2020 1:05 PM CDT Primary Provider: ELSEWHERE, PCP or UNASSIGNED? Medication: atorvastatin documented in this encounter Plan of Treatment Not on filedocumented as of this encounter Visit Diagnoses Not on filedocumented in this encounter Additional Health Concerns Assessment Noted Time PHQ-9 Depression Total Score: 3 01/03/2018 10:38 AM CD T documented as of this encounter Care Teams Software Publisher Relationship Specialty Start Date End Date Elsewhere, Pcp PCP - General Family Medicine 01/29/20 documented as of this encounter
--- OUTSIDE RECORDS SUMMARY | 2022-03-16 12:22 | XMS_ITS | Encounter Summary ---
:[address] [facility] Address [address] [place] [address] Care Team Providers Name Role Phone Elsewhere, Pcp Primary Care Provider Unavailable Encounter Details Date Type Department Care Team Description 07/16/2020 Orders Only [facility] Sa barbara Jean M.D. [address] [place], [place] [phone] (Wo rk) Social History [...] week 03/25/2021 How often do you attend episcopal or jainism services? 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
--- OUTSIDE RECORDS SUMMARY | 2022-03-16 12:22 | XMS_ITS | Encounter Summary ---
:1950 Author Organization [facility] Address [address] [place] [address] Care Team Providers Name Role Phone Elsewhere, Pcp Primary Care Provider Unavailable Reason for Visit Appointment Request (Routine) - Closed Specialty Diagnoses / Procedures Referred By Contact Refer red To Contact Nephrology and Rudy Riddle Hypertension [address] [place] [address] Referral ID Status Reason Start Date Expiration Date Visits Requ ested Visits Authorized [id number] Closed 06/12/2020 06/12/2021 1 1 Encounter Details Date Type Department Care Team Description 06/16/2020 External Outreach Division of [place], Hypertensi ve Chronic Kidney Disease (CKD) Stage 3b Glomerular Filtration Rate (GFR) 30 To 44 (HCC) (Primary Dx); Nephrology and Haseeb Thomas Jr., Atherosclero sis Of [place] Ar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 (HCC); Hypertension in [place]. Diabetes Mellitus Type 2 With Other Circ ulatory Complication Hyperglycemic (HCC); [place], [place] [address] [facility] Osteodystrophy Renal; [address] [place], [place] Anemia [place] [phone] Social History Tobacco Use Types Packs/Day Years [...] How often do you attend amish or yazidi services? 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 D.O. - 06/16/2020 3:30 PM CST Please see scanned in note under document viewer tab for the [facility] outreach visit from this date. N STOCK WASHER documented in this encounter Plan of Treatment Not on filedocumented as of this encounter Visit Diagnoses Diagnosis Hypertensive Chronic Kidney Disease (CKD ) Stage 3b Glomerular Filtration Rate (GFR) 30 To 44 (HCC) - Primary Atherosclerosis Of [place] Arteries Of Ex tremities With Intermittent Claudication Right Leg (HCC) Diabetes Mellitus Type 2 With Other Circ ulatory Complication Hyperglycemic (HCC) Osteodystrophy Renal Anemia Of Chronic Renal Disease documented in this encounter Additional Health Concerns Assessment Noted Time PHQ-9 Depression Total Score: 3 01/03/2018 10:38 AM CD T documented as of this encounter Care Teams Chief Specialist Leed Relationship Specialty Start Date End Date Elsewhere, Pcp PCP - General Family Medicine 01/29/20 documented as of this encounter
--- OUTSIDE RECORDS SUMMARY | 2022-03-16 12:22 | XMS_ITS | Encounter Summary ---
:1950 Author Organization [facility] Address [address] [place] [address] Care Team Providers Name Role Phone Elsewhere, Pcp Primary Care Provider Unavailable Encounter Details Date Type Department Care Team Description 10/02/2020 Clinical Communication Division of Nephrology Haseeb Menon and Hypertension in [place] D.O. [place], [place] [address] [facility] [address] [place] [phone] Social History Tobacco Use Types Packs/Day Years [...] week 03/25/2021 How often do you attend taoist or pentecostal services? 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 - 10/02/2020 5:13 PM CDT Phone call note I asked him to check on his medications when he got home. As I visited with him in [facility] in [place] it appears though he was taking both spironolactone an chlorthalidone. As he got home, as we expected, he is using the spironolactone but not chlorthalidone. He has dramatically discrepant blood pressures in his upper extremities. His orthostatic symptoms are worrisome however, and for now we will continue with his current regimen, as he often will have blood pressures in the low arm in the 70s and 80s systolic. He will continue to work towards lowering his blood sugars, following his diet, and staying active. He is avoiding NSAIDs. I will be seeing him back in 4 months. documented in this encounter Plan of Treatment Not on filedocumented as of this encounter Visit Diagnoses Not on filedocumented in this encounter Additional Health Concerns Assessment Noted Time PHQ-9 Depression Total Score: 3 01/03/2018 10:38 AM CD T documented as of this encounter Care Teams Area Coordinator Relationship Specialty Start Date End Date Elsewhere, Pcp PCP - General Family Medicine 01/29/20 documented as of this encounter
--- OUTSIDE RECORDS SUMMARY | 2022-03-16 12:22 | XMS_ITS | Encounter Summary ---
:1950 Author Organization [facility] Address [address] [place] [id number] Care Team Providers Name Role Phone Elsewhere, Pcp Primary Care Provider Unavailable Encounter Details Date Type Department Care Team Description 08/04/2020 Hospital Encounter Department of Kemar Vel[facility]quez [facility] Arterial Radiology, [facility] (HCC[facility] Building, in [address] [place] [address] [place], [place] [phone] (Work) [phone] Social History Tobacco Use Types Packs/Day Years [...] How often do you attend moravian or bahai services? 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 documented in this encounter Results US Aorta Iliac Arteries Left with Doppler (08/04/2020 9:49 AM CDT) Anatomical Region Laterality Modality Abdomen, Pelvis, Ultrasound RST LOS, Ultrasound ARZ LOS, Lef t Ultrasound Ultrasound FLA LOS, Procedural Specimen (Source) Anatomical Collection Method Collection Time Re ceived Time Location / / Volume Laterality 08/04/2020 10:05 AM CDT Impressions 08/04/2020 10:22 AM CDT 1. Unchanged stenosis of the proximal portion of the left common iliac stent. 2. Unchanged patent left external iliac artery stent which is negative for significant stenosis. Narrative 08/04/2020 10:22 AM CDT EXAM: US AORTA ILIAC ARTERIES LEFT WITH DOPPLER Exam performed with color and spectral D oppler analysis. COMPARISON: Pelvic artery ultrasound 08/2019. FINDINGS: ??The distal abdominal aorta i s patent and normal in caliber. Patent stented left common iliac artery with un changed elevated velocity in the proximal stent (409 cm/s compared to 410 cm/s previously). Patent stented proximal left external iliac artery with out evidence of significant stenosis. Status post left femoral endarterectomy. The left common femoral artery is widely patent. Procedure Note Fletcher Clifton M.D. - 08/04/2020Formatti ng of this note might be different from the original. EXAM: US AORTA ILIAC ARTERIES LEFT WITH DOPPLER Exam performed with color and spectral D oppler analysis. COMPARISON: Pelvic artery ultrasound 08/2019. FINDINGS: The distal abdominal aorta is patent and normal in caliber. Patent stented left common iliac artery with un changed elevated velocity in the proximal stent (409 cm/s compared to 410 cm/s previously). Patent stented proximal left external iliac artery with out evidence of significant stenosis. Status post left femoral endarterectomy. The left common femoral artery is widely patent. IMPRESSION: 1. Unchanged stenosis of the proximal po rtion of the left common iliac stent. 2. Unchanged patent left external iliac artery stent which is negative for significant stenosis. Kemar ETIENNE US PROCEDURES documented in this encounter Visit Diagnoses Diagnosis Peripheral Arterial Disease (HCC) documented in this encounter Additional Health Concerns Assessment Noted Time PHQ-9 Depression Total Score: 3 01/03/2018 10:38 AM CD T documented as of this encounter Care Teams Retail Sales Manager Relationship Specialty Start Date End Date Elsewhere, Pcp PCP - General Family Medicine 01/29/20 documented as of this encounter
--- OUTSIDE RECORDS SUMMARY | 2022-03-16 12:23 | XMS_ITS | Encounter Summary ---
:1950 Author Organization [facility] Address [address] [place] [address] Care Team Providers Name Role Phone Unavailable Primary Care Provider Unavailable Reason for Visit Reason Comments [facility] Med Request Encounter Details Date Type Department Care Team Description 09/25/2019 Clinical Communication Department of [facility] Med Request Nicotine Dependence, Sanya Mayers, [facility], [place] [address] [facility] [address] [place] [address] [phone] Social History Tobacco Use Types Packs/Day Years [...] week 03/25/2021 How often do you attend congregational or taoist services? 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 - 09/25/2019 12:36 PM CDT 1. 28 mg patch 2. Inhaler [place], [place] documented in this encounter Plan of Treatment Not on filedocumented as of this encounter Visit Diagnoses Diagnosis Nicotine Dependence Cigarettes With With drawal - Primary documented in this encounter Additional Health Concerns Assessment Noted Time PHQ-9 Depression Total Score: 3 01/03/2018 10:38 AM CD T documented as of this encounter
--- OUTSIDE RECORDS SUMMARY | 2022-03-16 12:23 | XMS_ITS | Encounter Summary ---
:1950 Author Organization [facility] Address [address] [place] [address] Care Team Providers Name Role Phone Elsewhere, Pcp Primary Care Provider Unavailable Reason for Visit Reason Comments Nicotine Dependence Encounter Details Date Type Department Care Team Description 02/25/2020 Clinical Communication Department of Akil Adams Dependence Nicotine Carlos Mayers M.AFei, [facility], C.T.T.S. in [place] [address] [address] [place], [place] [address] [place] [phone] [place], [place] [phone] (Work) [phone] Social History Tobacco Use Types Packs/Day Years [...] place to sleep or slept in a [place] [facility] [place] facility (including now)? Education Answer Date Recorded What is the highest level of school Associate degree: arsalanalivia muller, 04/30/2019 you have completed or the highest technical, or vocational amy davis degree you have received? 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 Did not want to talk with me. The medication prescribed was waytoo expensive and didn't help. I encouraged him to call his counselor to discuss an alternative medication. documented in this encounter Plan of Treatment Not on filedocumented as of this encounter Visit Diagnoses Not on filedocumented in this encounter Additional Health Concerns Assessment Noted Time PHQ-9 Depression Total Score: 3 01/03/2018 10:38 AM CD T documented as of this encounter Care Teams Players Club Representative Relationship Specialty Start Date End Date Elsewhere, Pcp PCP - General Family Medicine 01/29/20 documented as of this encounter
--- OUTSIDE RECORDS SUMMARY | 2022-03-16 12:23 | XMS_ITS | Encounter Summary ---
:1950 Author Organization [facility] Address [address] [place] [address] Care Team Providers Name Role Phone Elsewhere, Pcp Primary Care Provider Unavailable Encounter Details Date Type Department Care Team Description 01/29/2020 Clinical Communication Department of [facility], [facility], in [place] [address] [place], [place] [phone] Social History Tobacco Use Types Packs/Day Years [...] How often do you attend gnosticist or caodaism services? Never 03/25/2021 Do you [...] place to sleep or slept in a alf (including now)? Education Answer Date Recorded What is the highest level of school Associate degree: migdalia muller, 04/30/2019 you have completed or the highest technical, or vocational amy davis degree you have received? 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 - 01/29/2020 4:28 PM CDT Patient is diabetic and not meeting goal. Called and spoke with patient. Patient states that he has transferred his care to Dr. Connell and is no longer seeking care here. documented in this encounter Plan of Treatment Not on filedocumented as of this encounter Visit Diagnoses Not on filedocumented in this encounter Additional Health Concerns Assessment Noted Time PHQ-9 Depression Total Score: 3 01/03/2018 10:38 AM CD T documented as of this encounter Care Teams Lens Edge Grinder Machine Relationship Specialty Start Date End Date Elsewhere, Pcp PCP - General Family Medicine 01/29/20 documented as of this encounter
--- OUTSIDE RECORDS SUMMARY | 2022-03-16 12:23 | XMS_ITS | Encounter Summary ---
:1950 Author Organization [facility] Address [address] [place] [address] Care Team Providers Name Role Phone Elsewhere, Pcp Primary Care Provider Unavailable Encounter Details Date Type Department Care Team Description 05/08/2020 Ancillary Procedure Department of Niels Casey, Radiology in [place], [place] [address] [facility] [address] [place] [phone] (Wo rk) Social History Tobacco Use Types [...] How often do you attend gnosticist or christian services? 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 documented in this encounter Results Interpretation of Outside CT Chest (05/08/2020 12:45 PM ALODIZE MACHINE HELPER) Anatomical Region Laterality Modality Chest, Thoracic RST LOS, Thoracic ARZ LOS, Thoracic N/A Computed Tomography FLA LOS, Other, Body Specimen (Source) Anatomical Collection Method Collection Time Re ceived Time Location / / Volume Laterality 05/08/2020 1:05 PM ALODIZE MACHINE HELPER Impressions 05/08/2020 1:13 PM ALODIZE MACHINE HELPER 1. Findings consistent with volume overload/congestive failure. 2. Multifocal groundglass opacities most notable in the right apex could also be related to edema, but the distribution i s not typical for that. These are most suggestive of a superimposed infectious/ inflammatory process. COVID-19 pneumonia is possible, but this is not a specific appearance. 3. Mediastinal lymphadenopathy, indeterm inate. Narrative 05/08/2020 1:13 PM ALODIZE MACHINE HELPER EXAM: ??INTERPRETATION OF OUTSIDE CT CHEST. Outside chest CT without IV contrast dated 05/07/2020. COMPARISON: ??No relevant prior availabl e. FINDINGS: ??There are multiple focal gabby undglass opacities in the right upper lobe, most prominent in the subpleural l thompson at the apex. Slight patchy nodular groundglass opacities in the left upper lobe. Moderate bilateral pleural effusions with dependent compressive ate lectasis in both lower lobes. Smooth interlobular septal thickening throughou t both lungs in a peripheral distribution. Mucus in the distal trachea and tracking into the right mainstem bronchus. Tracheobronchial tree otherwise widely p atent. Mediastinal lymphadenopathy. For example , a 1.5 cm pretracheal node (series 2 image 29). There are also small left hil ar and subcarinal lymph nodes that are calcified, with a calcified pulmonary gr anuloma in the lingula. Old fracture deformities of the left ant erior 5th and 6th ribs. The sagittal image series is incomplete. Procedure Note Jenaro Soto M.D. - 05/08/2020Form atting of this note might be different from the original. EXAM: INTERPRETATION OF OUTSIDE CT CHEST . Outside chest CT without IV contrast dated 05/07/2020. COMPARISON: No relevant prior available. FINDINGS: There are multiple focal groun dglass opacities in the right upper lobe, most prominent in the subpleural l thompson at the apex. Slight patchy nodular groundglass opacities in the left upper lobe. Moderate bilateral pleural effusions with dependent compressive ate lectasis in both lower lobes. Smooth interlobular septal thickening throughou t both lungs in a peripheral distribution. Mucus in the distal trachea and tracking into the right mainstem bronchus. Tracheobronchial tree otherwise widely p atent. Mediastinal lymphadenopathy. For example , a 1.5 cm pretracheal node (series 2 image 29). There are also small left hil ar and subcarinal lymph nodes that are calcified, with a calcified pulmonary gr anuloma in the lingula. Old fracture deformities of the left ant erior 5th and 6th ribs. The sagittal image series is incomplete. IMPRESSION: 1. Findings consistent with volume overl oad/congestive failure. 2. Multifocal groundglass opacities most notable in the right apex could also be related to edema, but the distribution i s not typical for that. These are most suggestive of a superimposed infectious/ inflammatory process. COVID-19 pneumonia is possible, but this is not a specific appearance. 3. Mediastinal lymphadenopathy, indeterm inate. Niels Casey M.D. IMSophie CT PROCEDURES documented in this encounter Visit Diagnoses Not on filedocumented in this encounter Additional Health Concerns Infection Onset Date Last Indicated Resolved Time COVID19 Pending 05/08/2020 05/08/2020 05/08/2020 2:44 PM ALODIZE MACHINE HELPER Assessment Noted Time PHQ-9 Depression Total Score: 3 01/03/2018 10:38 AM CD T documented as of this encounter Care Teams General Practitioner Relationship Specialty Start Date End Date Elsewhere, Pcp PCP - General Family Medicine 01/29/20 documented as of this encounter
--- OUTSIDE RECORDS SUMMARY | 2022-03-16 12:23 | XMS_ITS | Encounter Summary ---
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 [facility] Procedures Lower Extremity Arterial (MIMI) - TCPO2 (Wound) [address] [place] [address] Referral ID Status Reason Start Date Expiration Date Visits Requ ested Visits Authorized [id number] Closed 09/17/2019 09/16/2020 1 1 Encounter Details Date Type Department Care Team Description 09/17/2019 Hospital Encounter Department of Kemar Velásquez Atheros clerosis Of [place] Ar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 (HCC); Vascular Medicine M.B.B.S. Atherosclerosis Of [place] Arteries Of Le ft Leg With Ulceration Of Unspecified Site (HCC); in [address] Peripheral Arterial Disease (HCC) [place], [place] [address] [facility] [address] [place], [place] [phone] (Work) [phone] Social History Tobacco Use Types Packs/Day Years Used Date Smoking Tobacco: Every Day Cigarettes 0.8 L ast attempted to quit: 03/16/2018 Smokeless Tobacco: Never Alcohol Use Standard Drinks/Week Comments Yes 0 [...] week 03/25/2021 How often do you attend anabaptist or pentecostalism services? 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 Take in evening atorvastatin (LIPITOR) Take 1 tablet (20 mg 90 tablet 3 03/2020 20 mg tablet total) by mouth at bedtime. DULoxetine (CYMBALTA) Take 60 mg by mouth 0 08/[address] capsule at bedtime. ferrous sulfate 325 mg Take 27 mg by mouth 0 (65 mg iron) tablet daily. States taking 27 mg daily lancets 6 each daily. 600 each 3 03/07/2019 nortriptyline (PAMELOR) Take 100 mg by mouth 5 50 mg capsule at bedtime. omeprazole (PriLOSEC) Take 40 mg by mouth 0 09/[address] capsule every evening. pen needle, diabetic 31 Inject 1 Injection 400 each 3 04/17 gauge x 5/16 needle under the skin daily. Inject 1 injection under the skin 4 times daily ACCU-CHEK XIAO PLUS for testing blood 600 strip 11 10/25/19 19 01/17/2020 TEST STRP strips sugars 6 times daily amLODIPine (NORVASC) 10 Take 1 tablet (10 mg 90 tablet 3 05/27/2021 mg tablet total) by mouth daily. clopidogrel (PLAVIX) 75 Take 1 tablet (75 mg 30 tablet 11 05/08/2020 mg tablet total) by mouth daily. Take indefinitely for vascular stent patency colchicine (COLCRYS) Take 1 tablet (0.6 mg 90 tablet 3 12/201805/10/2020 0.6 mg tablet total) by mouth daily. doxepin (SINEquan) 10 TAKE ONE CAPSULE BY 90 capsule 3 02/0502/29/2020 mg capsule MOUTH AT BEDTIME gabapentin (NEURONTIN) Take 300 mg by mouth 0 05/08/2020 300 mg capsule daily. Taken at bedtime insulin lispro 100 Inject 0.1 mL (10 10 mL 11 07/14/2018 05/10/2020 unit/mL injection Units total) under the skin 3 (three) times a day with meals. Takes actually 15units TID with meals LANTUS SOLOSTAR U-100 Inject 0.4 mL (40 5 pen 11 019 02/04/2021 INSULIN 100 unit/mL (3 Units total) under mL) injection the skin every morning. lisinopril-hydroCHLOROt Take 1 tablet by 0 201505/08/2020 hiazide mouth daily. (PRINZIDE,ZESTORETIC) 20-12.5 mg per tablet metoprolol succinate TAKE ONE TABLET BY 90 tablet 3 020 05/10/2020 (TOPROL-XL) 200 mg 24 MOUTH EVERY EVENING hr tablet DO NOT CRUSH OR CHEW oxyCODONE (ROXICODONE) Take 10 mg by mouth 0 09/28/2021 10 mg IR tablet every 4 (four) hours as needed for pain. On a typical day takes 3 tablets in 24 hours oxyCODONE-acetaminophen TAKE ONE TABLET BY 0 09/1405/08/2020 (PERCOCET) 5-325 mg per MOUTH TWICE A DAY tablet NEEDED FOR MODERATE TO SEVERE PAIN Takes 2 between 3 and 5pm pantoprazole (PROTONIX) Take 1 tablet (40 mg 90 tablet 3 05/08/2020 40 mg EC tablet total) by mouth once daily. rOPINIRole (REQUIP) 3 TAKE ONE TABLET BY 0 201805/08/2020 mg tablet MOUTH EVERY DAY IN THE MORNING AND TAKE THREE TABLETS BY MOUTH EVERY DAY AT BEDTIME Vitamin D2 1,250 mcg Take 50,000 Units by 0 04/2502/23/2022 (50,000 unit) capsule mouth once a week. Sundays documented as of this encounter Plan of Treatment Not on filedocumented as of this encounter Procedures Procedure Name Priority Date/Time Associated Diagnosis Comme nts LOWER EXTREMITY Routine 09/17/2019 1:01 PM Atherosclerosis Of Results for this ARTERIAL (MIMI) - CDT [place] Arteries Of lui mcfarlane are in TCPO2 (WOUND) Extremities With the result s Intermittent section. 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 Abnormal signals starting at or above the tibial/pedal level. ?? Rest ing Index: ? MIMI (PT)- ??0.80 ?MIMI (DP)- ??0.78 ?TBI- ??0.70 ?? TcPO2: ? Values as noted. ?? Left: Doppler Waveforms: ? Normal at all levels evaluated. ?? Resting Index: ? MIMI (PT)- ??0.87 ?MIMI (DP)- ??0.85 ?TBI- ??0.79 ?? TcPO2: ? Values as noted. ?? Conclusions: Right- mild-moderate tibial artery occlusive disease. ??TcPO2s are normal at the below knee site, low normal at the proximal foot, and mildly reduced at the distal foot. Left- mild arterial occlusive disease, location uncertain. ??TcPO2s are normal at the above knee site, normal at the below knee site, moderately reduced at the proximal foot, and normal at the distal foot. Note- there is a 50 mm Hg systolic pressure discrepancy (right arm higher than left ) suggesting left arm arterial obstructive disease. The left ABIs and T cPO2s bilaterally have improved slightly since the study of 05/03/2019. ??Note- the patient was hypertensive (230/88 mmHg, right arm pressures) when he arrived at the lab; he felt he may be hypoglycemic . ??He was given fruit juice/cookies. ??By the time he left the lab he felt back to ??baseline, and his blood pressure had decreased to 200/80. He and his agreed that he would follow-up in the next day or 2 w ith his local doctor to readdress the is sammie of blood pressure control. Procedure Note Edgar Yarbrough M.D. - 09/17/2019Formatti ng of this note might be different from the original. Right: Doppler Waveforms: Abnormal signa ls starting at or above the tibial/pedal level. Resting Index: MIMI (PT)- 0.80 MIMI (DP)- 0.78 TBI- 0.70 TcPO2: Values as noted. Left: Doppler Waveforms: Normal at all l evels evaluated. Resting Index: MIMI (PT)- 0.87 MIMI (DP)- 0.85 TBI- 0.79 TcPO2: Values as noted. Conclusions: Right- mild-moderate tibial artery occlusive disease. TcPO2s are normal at the below knee site, low normal at the proximal foot, and mildly reduced at the distal foot. Left- mild arterial occlusive disease, location uncertain. TcPO2s are normal at the above knee site, normal at the below knee site, moderately reduced at the proximal foot, and normal at the distal foot. Note- there is a 50 mm Hg systolic pressure discrepancy (right arm higher than left ) suggesting left arm arterial obstructive disease. The left ABIs and T cPO2s bilaterally have improved slightly since the study of 05/03/2019. Note- the patient was hypertensive (230/88 mmHg, right arm pressures) when he arrived at the lab; he felt he may be hypoglycemic. He was given fruit juice/cookies. By the time h e left the lab he felt back to baseline, and his blood pressure had decreased to 200/80. He and his agreed that he would follow-up in the next day or 2 with his local doctor to readdress the issue of blood pressure control. Kemar Reyes CV VASCULAR PROCEDURES documented in this encounter Visit Diagnoses Diagnosis Atherosclerosis Of [place] Arteries Of Ex tremities With Intermittent Claudication Right Leg (HCC) Atherosclerosis Of [place] Arteries Of Le ft Leg With Ulceration Of Unspecified Site (HCC) Peripheral Arterial Disease (HCC) documented in this encounter Additional Health Concerns Assessment Noted Time PHQ-9 Depression Total Score: 3 01/03/2018 10:38 AM CD T documented as of this encounter
--- OUTSIDE RECORDS SUMMARY | 2022-03-16 12:23 | XMS_ITS | Encounter Summary ---
:1950 Author Organization [facility] Address [address] [place] [address] Care Team Providers Name Role Phone Unavailable Primary Care Provider Unavailable Reason for Visit Reason Onset Date Comments COVID Inquiry 09/24/2019 Encounter Details Date Type Department Care Team Description 09/24/2019 Clinical Communication Department of July Hernandez COVID Inquiry Nutrition in A, RDN, LD [place], [place] [address] [place] [address] Social History Tobacco Use Types Packs/Day Years [...] week 03/25/2021 How often do you attend hinduism or confucianist services? 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 In the past 14 days, have you been tested for COVID-19 with a positive or pending result? no 2. In the past 14 days, do you, anyone in the household, or anyone you have had prolonged exposure have (any of the following)? a. Fever = 38.0 C (100.5 F) lasting 24 hours? no b. New symptoms (Specifically: cough, shortness of breath, respiratory distress, sore throat, diarrhea, chills, myalgia's (muscle aches), loss of smell, or change or loss of taste sensation)? no c. Had close contact with persons who are under quarantine or isolation for COVID? no d. Had close contact with a patient with known or possible COVID-19? no Route reply to: JOSE Escobar DESK Scheduling Contact Number: [phone] documented in this encounter Plan of Treatment Not on filedocumented as of this encounter Visit Diagnoses Not on filedocumented in this encounter Additional Health Concerns Assessment Noted Time PHQ-9 Depression Total Score: 3 01/03/2018 10:38 AM CD T documented as of this encounter
--- OUTSIDE RECORDS SUMMARY | 2022-03-16 12:23 | XMS_ITS | Encounter Summary ---
:1950 Author Organization [facility] Address [address] [place] [address] Care Team Providers Name Role Phone Unavailable Primary Care Provider Unavailable Reason for Visit Reason Comments Med Refill Encounter Details Date Type Department Care Team Description 01/16/2020 Refill Department of Family Medicine, Bambi Adler Med Refill [facility], in Renee Phillips M.D. [place] [address] [place] [address] [place] [address] [phone] Social History Tobacco Use Types Packs/Day Years [...] How often do you attend rastafarian or jewish services? Never 03/25/2021 Do you [...] place to sleep or slept in a residential (including now)? Education Answer Date Recorded What is the highest level of school Associate degree: migdalia teresachristelle, 04/30/2019 you have completed or the highest technical, or vocational amy davis degree you have received? 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 - 01/23/2020 11:07 AM CDT Noted and faxed Telephone Encounter - Abbey Arroyo - 01/17/2020 3:09 PM CDT Lab Results Component Value Date HGBA1C 8.3 (H) 04/21/2018 documented in this encounter Plan of Treatment Not on filedocumented as of this encounter Visit Diagnoses Not on filedocumented in this encounter Additional Health Concerns Assessment Noted Time PHQ-9 Depression Total Score: 3 01/03/2018 10:38 AM CD T documented as of this encounter
--- OUTSIDE RECORDS SUMMARY | 2022-03-16 12:23 | XMS_ITS | Encounter Summary ---
:1950 Author Organization [facility] [place] Address [address] [place] [address] Care Team Providers Name Role Phone Elsewhere, Pcp Primary Care Provider Unavailable Reason for Visit Reason Comments COVID Inquiry Encounter Details Date Type Department Care Team Description 02/22/2020 Clinical Communication Department of [facility] Shanon Bain, [facility] [address] [place], [place] [address] [place], [place] [phone] [address] (Work) [phone] Social History Tobacco Use Types Packs/Day Years [...] How often do you attend synagogue or rastafarian services? 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 Is the patient requesting a COVID test only or other appointments? Other Appointments 2. Have you tested positive for COVID-19 in the last 30 days or do you have a pending COVID-19 test because you had symptoms? no 3. In the last 14 days have you had close contact with a lab confirmed positive case of COVID-19 (close contact is defined as a household case of COVID or being within 6 feet of a COVID-19 patient for more than 5 minutes or having direct contact with infectious secretions, e.g., being coughed on)? no 4. In the past 14 days, are any of the following symptoms new to you and not related to an existing health condition? a. Fever greater than or equal to 37.8 C (100.0 F)? no b. New symptoms (Specifically: headache, cough, shortness of breath, respiratory distress, sore throat, diarrhea, nausea, vomiting, chills and repeated shaking with chills, myalgia's (muscle aches), loss of smell, or change or loss of taste sensation)? no 5. Are you having NEW trouble breathing, worsening breathing, or feeling as though you're going to collapse when you stand or sit up? no 6. Have you tested positive for COVID in the last 90 days? no Route reply to: n/a Scheduling Contact Number: n/a documented in this encounter Plan of Treatment Not on filedocumented as of this encounter Visit Diagnoses Not on filedocumented in this encounter Additional Health Concerns Assessment Noted Time PHQ-9 Depression Total Score: 3 01/03/2018 10:38 AM CD T documented as of this encounter Care Teams Body Trimmer Relationship Specialty Start Date End Date Elsewhere, Pcp PCP - General Family Medicine 01/29/20 documented as of this encounter
--- OUTSIDE RECORDS SUMMARY | 2022-03-16 12:23 | XMS_ITS | Encounter Summary ---
:1950 Author Organization [facility] Address [address] [place] [address] Care Team Providers Name Role Phone Elsewhere, Pcp Primary Care Provider Unavailable Reason for Visit Reason Comments Med Refill Encounter Details Date Type Department Care Team Description 02/26/2020 Refill Department of Neurology in Yessy Cohen M.D., Med Refill [place], [place] [facility] [address] [place] [address] [place] [phone] (Wo rk) Social History Tobacco Use Types [...] week 03/25/2021 How often do you attend restorationist or gnosticist services? 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
--- OUTSIDE RECORDS SUMMARY | 2022-03-16 12:23 | XMS_ITS | Encounter Summary ---
:1950 Author Organization [facility] Address [address] [place] [address] Care Team Providers Name Role Phone Unavailable Primary Care Provider Unavailable Encounter Details Date Type Department Care Team Description 01/17/2020 Orders Only [facility] PCP [facility] MNT Ruthie Montero iabetes Mellitus Type 2 Renee means, With Other Circ ulatory M.Estiven Complication [address] [facility] ([place] [place] [address] Social History Tobacco Use Types Packs/Day Years [...] week 03/25/2021 How often do you attend yarsani or restoration services? 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
--- OUTSIDE RECORDS SUMMARY | 2022-03-16 12:23 | XMS_ITS | Encounter Summary ---
:1950 Author Organization [facility] Address [address] [place] [address] Care Team Providers Name Role Phone Unavailable Primary Care Provider Unavailable Reason for Visit Outpatient (Routine) - Closed Specialty Diagnoses / Procedures Referred By Contact Refer red To Contact Nutrition Diagnoses Peripheral Arterial Disease (HCC) Tobacco Use Kemar Velásquez M.B.BFeiS. [facility] [address] [place] [address] Referral ID Status Reason Start Date Expiration Date Visits Requ ested Visits Authorized [id number] Closed 09/17/2019 09/16/2020 1 1 Encounter Details Date Type Department Care Team Description 09/25/2019 Clinical Support Department of July Hernandez Arterial Disease (HCC); Nutrition in A, RDN, LD Tobacco Use [place], [place] [address] [place] [phone] Social History Tobacco Use Types Packs/Day Years [...] How often do you attend taoist or rastafari services? 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 documented as of this encounter Last Filed Vital Signs Vital Sign Reading Time Taken Comments Blood Pressure - - Pulse - - Temperature - - Respiratory Rate - - Oxygen Saturation - - Inhaled Oxygen Concentration - - Weight 85 kg (187 lb 6.3 oz) 09/25/2019 10:17 AM CDT Height 172.5 cm (5' 7.91) 09/25/2019 10:17 AM CDT Body Mass Index 28.57 09/25/2019 10:17 AM CDT documented in this encounter Progress Notes July Cannon, BELENN, LD - 09/25/2019 10:00 AM CDT CHIEF COMPLAINT/REASON FOR VISIT PAD, CAD, DM2 Met with patient and spouse ASSESSMENT Food/Nutrition Related History Eating environment: home primarily. Food and beverage intake. Generally eats 2 meals/day + snacks. Mr Walton does use the salt shaker ?? Breakfast: cost[place] rican or toast with peanut butter, black coffee ?? Lunch: often skips ?? Afternoon Snack 4:00 pm: potato chips, crackers and cheese or summer sausage ?? Evening Meal: patient does the cooking. He prefers red meat, portions are generous. He cooks the meal: beef roast or burgers or soup, sandwich, he drinks 2% milk. Doesn't care for fish although he does like tuna. Trying to eat more veggies like carrots, asparagus, broccoli. 0-1 serving of fruit/day. Cooks with butter and/or olive oil ?? Night Snack: maybe fruit Alcohol intake: rarely Physical activity: Onesimo Walton reports little exercise due to knee pain. Weight History Date: 05/12/20 Wt Readings from Last 3 Encounters: 09/25/19 85 kg 05/11/19 85.5 kg 05/01/18 84.5 kg Ht Readings from Last 1 Encounters: 09/25/19 172.5 cm BMI Readings from Last 3 Encounters: 09/25/19 28.57 kg/m?? 05/11/19 27.92 kg/m?? 05/01/18 28.12 kg/m?? Labs Lab Results Component Value Date GLUFS 175 (H) 06/22/2016 Lab Results Component Value Date HGBA1C 8.3 (H) 04/21/2018 Lab Results Component Value Date CHOL 148 07/26/2017 Lab Results Component Value Date HDL 40 07/26/2017 Lab Results Component Value Date LDLCALC 58 07/26/2017 Lab Results Component Value Date TRIG 249 (H) 07/26/2017 Lab Results Component Value Date TTLCHOLHDLRT 4.00 09/20/2016 Estimation of Nutritional Needs 1975 kcals/day to maintain present weight (HB equation + 20% activity). NUTRITION DIAGNOSIS Overweight related to imbalance between energy intake and energy expenditure as evidenced by patient's diet history and activity report. BMI 28.5 kg/m2. Nutrition Prescription/Recommendation Used the plate method of meal planning as a template for portion control. Explained the mediterranean diet concepts which promote lean protein choices and more of a plant based diet. Discussed sodium and the rationale involved in reducing salt intake from processed food as well as the salt shaker. INTERVENTION Education: Weight Control, Heart Health See Patient Education Record for information regarding education materials covered today. MONITORING AND EVALUATION: Nutrition parameter to monitor: Weight Reduction, Desired Outcome: establish healthy lifestyle changes; gradual weight reduction Patient Goal(s): 1. Incorporate chicken and tuna meal into weekly meal schedule 2. Reduce portions of red meat, butter, cheese to reduce saturated fat 3. Encourage 1-2 vegetables at each meal + a serving of fresh fruit 4. Advised patient to carry fast acting sugar (glucose tabs) in his pocket at all times in case he has a low blood sugar reaction. 5. Walk 5 minutes every other day and build up as tolerated FOLLOW UP PLAN: Provided name and phone number if questions should arise Time spent with patient (minutes): 40 documented in this encounter Plan of Treatment Not on filedocumented as of this encounter Visit Diagnoses Diagnosis Peripheral Arterial Disease (HCC) Tobacco Use documented in this encounter Additional Health Concerns Assessment Noted Time PHQ-9 Depression Total Score: 3 01/03/2018 10:38 AM CD T documented as of this encounter
--- OUTSIDE RECORDS SUMMARY | 2022-03-16 12:23 | XMS_ITS | Encounter Summary ---
:1950 Author Organization [facility] Address [address] [place] [address] Care Team Providers Name Role Phone Elsewhere, Pcp Primary Care Provider Unavailable Reason for Visit Reason Comments COVID Inquiry Encounter Details Date Type Department Care Team Description 05/12/2020 Clinical Communication Division of Vascular Hallie Velásquez ad, COVID Inquiry and Endovascular M.B.B.S. Surgery in [place], [facility] [address] [place], [place] [address] [place] [phone] [place], [place] [phone] (Work) [phone] Social History Tobacco Use Types Packs/Day Years [...] week 03/25/2021 How often do you attend scientologist or mu-ism services? 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 Follow local process (End Screening) Testing Recommendation Endpoint Is testing recommended? : Not recommended to test Plan: Endpoint recommendation: Followed regional OTG *Reminder if sending patient for testing in [facility] or [facility], route encounter to the correct testing pool. TURBINE MECHANICAL ENGINEER documented in this encounter Plan of Treatment Not on filedocumented as of this encounter Visit Diagnoses Not on filedocumented in this encounter Additional Health Concerns Assessment Noted Time PHQ-9 Depression Total Score: 3 01/03/2018 10:38 AM CD T documented as of this encounter Care Teams Roll Tester Relationship Specialty Start Date End Date Elsewhere, Pcp PCP - General Family Medicine 01/29/20 documented as of this encounter
--- OUTSIDE RECORDS SUMMARY | 2022-03-16 12:23 | XMS_ITS | Encounter Summary ---
:1950 Author Organization [facility] Address [address] [place] [id number] Care Team Providers Name Role Phone Unavailable Primary Care Provider Unavailable Reason for Visit Reason Comments Nicotine Dependence Encounter Details Date Type Department Care Team Description 10/19/2019 Clinical Communication Department of Akil Adams Dependence Nicotine Carlos Mayers, M.AFei, [facility]S. in [place], [facility] [address] [place], [place] [address] [place] [phone] [place], [place] [phone] (Work) [phone] Social History Tobacco Use Types Packs/Day Years [...] How often do you attend taoism or synagogue services? 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
--- OUTSIDE RECORDS SUMMARY | 2022-03-16 12:23 | XMS_ITS | Encounter Summary ---
:[address] [facility] Address [address] [place] [address] Care Team Providers Name Role Phone Unavailable Primary Care Provider Unavailable Reason for Visit Reason Comments Nicotine Dependence Outpatient (Routine) - Closed Specialty Diagnoses / Procedures Referred By Contact Refer red To Contact Pulmonary Medicine / Diagnoses Peripheral Arterial Disease (HCC) [facility] M[facility]. [address] [place] [phone] Referral ID Status Reason Start Date Expiration Date Visits Requ ested Visits Authorized [id number] Closed 09/17/2019 09/16/2020 1 1 Encounter Details Date Type Department Care Team Description 09/25/2019 Clinical Support Department of Kemar Velásquez M .B.B.S. [address] [place] [phone] Nicotine Dependence Cigarettes With With drawal (Primary Dx); Nicotine Dependence, Riana [place] M.A., C.T.T.S. [address] [place] [phone] Peripheral Arterial Disease (HCC); [facility], in Tobacco U se [place], [place] [address] [place] [phone] Social History Tobacco Use Types Packs/Day Years Used Date Smoking Tobacco: Every Day Cigarettes 1 35 S tarted: 05/16/1983 Smokeless Tobacco: Never Tobacco Cessation: Ready to Quit: Yes; William weaver Given: Yes Comments: patient plans to quit in the [...] week 03/25/2021 How often do you attend pentecostalism or yarsanism services? 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 - 09/25/2019 11:00 AM CDT SUBJECTIVE CHIEF COMPLAINT / REASON FOR VISIT Tobacco use disorder 30 minutes consultation; CO testing HISTORY OF PRESENT ILLNESS Onesimo Walton is a 69 y.o. male who was seen at [place] [address] and is being evaluated for Tobacco Use Disorder. Patient is accompanied today by his Siria, who also smokes. Tobacco Use History: Patient averages 21 to 30 cigarettes per day, and usually smokes his first cigarette 6-30 minutes after waking. Onesimo started using tobacco regularly at the age of . He has made 2 to 5 quit attempts with his longest period of abstinence being 1 to 5 months. Onesimo has tried stopping using various methods such as patches, inhaler, Chantix, NDC counseling, hypnosis, and laser therapy. Patient has relapsed due to his also is a smoker. The patient has experienced the following withdrawal symptoms: Craving, Desire to smoke, Increased eating. Patient reports specific triggersare: Talking on the phone, Driving, After eating, Finishing a job, Starting your day, working in my garage, right before bed. Motivation: Onesimo shares that he is very motivated to stop using tobacco at this time. He rates importance of quitting at 8/10 and his confidence in ability to quit at 8 /10. His reasons to quit are to be around for family, to improve health and grandchildren. Potential Barriers to Quitting: Lives with someone who smokes - patient's also smokes, but is planning to quit smoking with him. OBJECTIVE Co-occurring Problems: The patient states that he is currently taking medication for depression. Alcohol Use Disorders Identification Test: The patient states that he has never had a problem with alcohol. Fagerstrom Score is 5/10. Carbon monoxide was assessed at 35 ppm. Assessment of Medication Contraindications: Patient states no contraindications to nicotine replacement. ASSESSMENT / PLAN 1. Tobacco use disorder. 2. Tobacco dependence counseling: Mr. Walton plans to quit smoking in the next 30 days. Time was spent discussing with the patient the neurobiology of nicotine addiction and the rationale for using medications to help with cessation. Education was provided on the 7 FDA approved medications for cessation and all questions were answered. The following is consistent with assessment and patient preference: Nicotine patch: 28 mg (1 21 mg + 1 7 mg) Initial doses for 4-6 weeks then taper dose in 7 to 14 mg steps every 2 to 4 weeks based on patient's report of withdrawal symptoms, urges, and comfort. Adverseeffects may include nausea (reduce patch dosage), local patch reaction such as redness or itching (use of topical hydrocortisone cream and rotating patch can reduce local reaction), severe site reaction (e.g. edema, blistering) Nicotine inhaler: Puff on dispenser as needed to manage craving and withdrawal. Adverse effects may include sore throat and cough (which tends to lessen over time). Medication plan is within approved guidelines and patient was screened for contraindications Patient may also talk with his primary physician about the Chantix - as he has had kidney issues in the past and after he gets his creatinine level back from the lab, he may explore the possibility of using a lower dose of the Chantix. Patient has used the Chantix at a reduced dose in the past, and ithas been helpful. I also encouraged the patient to call the [facility] if he needs any assistance with getting the Chantix if needed as well. Our [facility] physician will arrange for these scripts to go the [facility] pharmacy in [place], [place]. BEHAVIORAL PLAN: Cognitive and behavorial techniques for coping with urges to smoke were reviewed as well as planningfor triggers, changing routines, and getting support. Strategies such as keeping his hands busy, working in the garage, and using his NRT were discussed to help manage urges and cravings. We worked together using the book entitled: My Smoke-Free Future. Follow Up: I encouraged Onesimo Walton to contact me with any questions or concerns. I plan tocall the patient to follow-up in 6 weeks... Patient is ready to learn, No apparant barriers to learning were identified. Patient understands andagrees with plan. 30 minutes of our visit was spent on tobacco use disorder counseling. Riana [place] M.A., C.T.T.S. 09/25/2019 12:00 PM CDT documented in this encounter Plan of Treatment Not on filedocumented as of this encounter Visit Diagnoses Diagnosis Nicotine Dependence Cigarettes With With drawal - Primary Peripheral Arterial Disease (HCC) Tobacco Use documented in this encounter Additional Health Concerns Assessment Noted Time PHQ-9 Depression Total Score: 3 01/03/2018 10:38 AM CD T documented as of this encounter
--- OUTSIDE RECORDS SUMMARY | 2022-03-16 12:23 | XMS_ITS | Encounter Summary ---
:1950 Author Organization [facility] Address [address] [place] [id number] Care Team Providers Name Role Phone Elsewhere, Pcp Primary Care Provider Unavailable Encounter Details Date Type Department Care Team Description 05/08/2020 - Hospital Encounter [facility] David Zavaleta M.D., M.S. [address] [place] [phone] Pneumonia Community Acquired (Primary Dx ); 05/10/2020 [facility] Delmy Flores, M.B.A. [address] [place] [phone] Acute Respiratory Failure With Hypoxia ( HCC) [facility] Bebeto Finley M.D., M.S. [address] [place] [phone] [facility], Eighth Floor [address] [place] [phone] Social History Tobacco Use Types Packs/Day Years [...] How often do you attend buddhism or rastafari services? Never 03/25/2021 Do you [...] or the highest technical, or vocational p [employer] degree you have received? 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 documented as of this encounter Last Filed Vital Signs Vital Sign Reading Time Taken Comments Blood Pressure 144/75 05/10/2020 12:45 PM MANUAL LATHE MACHINIST Pulse 87 05/10/2020 12:30 PM MANUAL LATHE MACHINIST Temperature 36.7 ??C (98.1 ??F) 05/10/2020 12:30 PM MANUAL LATHE MACHINIST Respiratory Rate 31 05/10/2020 1:45 PM MANUAL LATHE MACHINIST Oxygen Saturation 96% 05/10/2020 12:30 PM MANUAL LATHE MACHINIST Inhaled Oxygen Concentration - - Weight 79.8 kg (175 lb 14.8 oz) 05/09/2020 5:00 AM MANUAL LATHE MACHINIST Height 175 cm (5' 8.9) 05/08/2020 3:00 PM MANUAL LATHE MACHINIST Body Mass Index 26.06 05/08/2020 3:00 PM MANUAL LATHE MACHINIST documented in this encounter Discharge Summaries Niels Casey M.D. - 05/10/2020 12:32 PM CST DISCHARGE SUMMARY BRIEF OVERVIEW Hospital: [facility] Discharge Provider: Mark Cabrera M.D. Primary Team: [facility] Medicine 9 ([facility]) Primary Care Providers: Elsewhere, Pcp (General) No address on file Primary Care Provider Phone Number: None Primary Care Provider Fax Number: None Other Providers: none Admission Date: 05/08/2020 Discharge Date: 05/10/2020 PRINCIPAL DIAGNOSIS Acute Respiratory Failure With Hypoxia (HCC) SECONDARY DIAGNOSES Principal Problem: Acute Respiratory Failure With Hypoxia (HCC) Active Problems: Hypertension And Chronic Kidney Disease Stage 1 To 4 Diabetes Mellitus Type 2 With Other Circulatory Complication Hyperglycemic (HCC) Hypertension NOS Resolved Problems: * No resolved hospital problems. * Acute respiratory failure due to pulmonary edema as evidenced by imaging and history, sepsis and pneumonia ruled out DISCHARGE DISPOSITION Home or Self Care [1] ACTIVE ISSUES REQUIRING FOLLOW UP Please HOLD colchicine, prescriber evaluate if this should continue in the setting of interaction with new carvedilol therapy. PCP, please follow-up blood pressure control, and kidney function. Please retest his need for oxygenas I do not suspect this will be long-term. Please also follow-up on smoking cessation. Note there were some nonspecific ground-glass opacities in his upper lungs, which were not classically associated with edema. Consider follow-up or lung cancer screening CT given his smoking history. Also note indeterminate mediastinal lymphadenopathy. CT report is attached. OUTPATIENT FOLLOW UP For appointment details refer to your Patient Appointment Guide. TEST RESULTS PENDING AT DISCHARGE Pending Labs Order Current Status Aldosterone Collected (05/08/20 1510) Renin Activity In process DETAILS OF HOSPITAL STAY REASON FOR ADMISSION Pneumonia Community Acquired HOSPITAL COURSE Mr. Onesimo Walton is a 70 y.o. male who was transferred after admission to the hospital in [place] with an episode of an acute onset of shortness of breath, hypertension, pulmonary infiltratessuspicious for COVID-19, new pleural effusions and acute kidney injury. Patient describes feeling well day before admission and when out driving. He did not have any associated fever, chills, sweats, purulent sputum production, loss of appetite or altered taste or olfactory function. He did not have any chest pain or palpitations. He has otherwise felt well and although his oxygen saturation was initially in the 80% range he was weaned off oxygen prior to transfer and tolerated walking out to his car without exertional dyspnea. He is free of any dyspnea cough or fever at this time. He has not any GI symptoms of nausea, anorexia or diarrhea. He has not noted any change in urination or lower extremity edema. He has not had any PND, orthopnea or exertional dyspnea. His troponin was elevated at 0.066, rising to 0.099. He was treated with labetalol for elevated blood pressure and today on transfer his blood pressures in the 170/90 range. His O2 saturation was 99% on room air on arrival. CoVID was negative. He had a chest CT prior to arrival that showed bilateral pleural effusions, lung opacities consistent with pulmonary edema, and some nonspecific upper lobe opacities as well. His blood pressure was as high as 220 systolic here. His medications were rearranged, and it turned out that he had missed a dose of his antihypertensives the evening prior to coming in. Because clonidine can cause dangerous spikes in blood pressure when missed, we revised his medications so that he would not be on clonidine going home. His blood pressure was controlled on the new regimen though he was still a bit hypertensive. Remained asymptomatic throughout. He had an overnight oximetry done which was not suggestive of sleep apnea but did reveal a gas exchange abnormality. This was suspected to reflect resolving pulmonary edema and pleural effusions, which were confirmed to be shrinking on chest x-ray. He qualified for 2 L of oxygen at night, and I suspect he will not need this for long. Of note, his D-Dimer was elevated both prior to arrival and when checked here. However, because we learned of his missing a medication dose and he had no other symptoms to suggest VTE or PE, this appeared to be a low-probability situation for PE, so the D-dimer was interpreted as false positive, without further testing. Specifically, he had no positive findings for Wells PE criteria. Seen and examined on day of discharge and found to be in stable condition and without complaints. Noinfectious symptoms. We offered him smoking cessation resources but he declined. No anginal symptoms, no respiratory complaints, and blood pressure control was improving. C- LUNG CT INTERPRETATION FINDINGS: There are multiple focal groundglass opacities in the right upper lobe, most prominent in the subpleural lung at the apex. Slight patchy nodular groundglass opacities in the left upper lobe. Moderate bilateral pleural effusions with dependent compressive atelectasis in both lower lobes. Smooth interlobular septal thickening throughout both lungs in a peripheral distribution. ?? Mucus in the distal trachea and tracking into the right mainstem bronchus. Tracheobronchial tree otherwise widely patent. ?? Mediastinal lymphadenopathy. For example, a 1.5 cm pretracheal node (series 2 image 29). There are also small left hilar and subcarinal lymph nodes that are calcified, with a calcified pulmonary granuloma in the lingula. ?? Old fracture deformities of the left anterior 5th and 6th ribs. ?? The sagittal image series is incomplete. ?? IMPRESSION: 1. Findings consistent with volume overload/congestive failure. ?? 2. Multifocal groundglass opacities most notable in the right apex could also be related to edema, but the distribution is not typical for that. These are most suggestive of a superimposed infectious/inflammatory process. COVID-19 pneumonia is possible, but this is not a specific appearance. ?? 3. Mediastinal lymphadenopathy, indeterminate. CONSULTS ORDERED DURING THIS ADMISSION IP CONSULT TO CARE MANAGEMENT CONDITION AT DISCHARGE stable Discharge instructions were provided to the patient and caregiver(s). AL LATHE MACHINIST documented in this encounter Discharge Instructions Discharge InstructionsJuju Concepcion - 05/08/2020 10:35 AM CST You were discharged from the [place] [address] ([facility]) Service. Please identify this service name if you call with questions after hospitalization. AL LATHE MACHINIST AttachmentsThe following attachments cannot be sent through Care Everywhere. Carvedilol (By mouth) (Cook Islander)Chlorthalidone (By mouth) (Cook Islander)documented in this encounter Medications at Time of Discharge Medication Sig Dispensed Refills Start Date End Date pramipexole (MIRAPEX) 0.5 Take 0.5 mg by 0 mg tablet mouth at bedtime. aspirin [address] tablet Take 325 [...] injection under the skin 4 times daily amLODIPine (NORVASC) 10 Take 1 [...] tablet mg total) by mouth once daily. sulfamethoxazole-trimetho daily. 0 03/04/2020 03/25/2021 prim (BACTRIM DS) 800-160 mg per tablet Vitamin D2 1,250 mcg Take 50,000 Units 0 04/25/20 19 02/23/2022 (50,000 unit) capsule by mouth once a week. Sundays documented as of this encounter Progress Notes [facility] [place] - 05/10/2020 8:14 AM CST 05/10/20 0813 Nocturnal Oxygen Assessment Asleep Room Air SpO2 84 Percent Oxygen Flow Rate 2 L/min (2 lpm nasal cannula) Nocturnal oxygen assessment completed. Patient SpO2 below 88% for 5 minutes or greater. Any desaturations on trend lower than patient SpO2 is considered artifact. AL LATHE MACHINIST Niels Casey M.D. - 05/09/2020 2:12 PM CST T Medicine 9 ([facility]) Progress Notes SUBJECTIVE Overnight he required up to 3L O2 No complaints this morning. He now does recall that he missed his blood pressure medications the night before admission. He denies any symptoms of arm numbness or tingling or claudication but does recall that he was told to check his blood pressures in his right arm I have reviewed the current medication list. OBJECTIVE VITAL SIGNS Temperature: [36.5 ??C-36.8 ??C] 36.5 ??C Heart Rate: [71-95] 79 Resp Rate: [13-25] 17 Blood Pressure: (127-219)/(53-98) 144/70 SpO2: [87 %-100 %] 87 % Flow Rate (L/min): [1 L/min-3 L/min] 3 L/min Pulse Rate: [71-95] 80 Intake/Output Last 24 Hours: Intake/Output Summary (Last 24 hours) at 05/09/2020 1412 Last data filed at 05/09/2020 1000 Gross per 24 hour Intake 1392.92 ml Output 900 ml Net 492.92 ml PHYSICAL EXAM General: No acute distress resting comfortably in bed on room air in good spirits Lungs: Clear bilaterally normal rate and effort on room air no cough Heart: Regular rate and rhythm, no murmur, euvolemic Abdomen: Soft, nontender, nondistended DIAGNOSTICS I have personally reviewed diagnostics since yesterday. ASSESSMENT / PLAN Mr. Walton is hospitalized on [place] [id number] ([facility]) for evaluation and management of Acute Respiratory Failure With Hypoxia ([facility]). #1 Hypertension And Chronic Kidney Disease Stage 1 To 4 #2 Diabetes Mellitus Type 2 With Other Circulatory Complication Hyperglycemic (HCC) #3 Hypertension NOS #4 Acute Respiratory Failure With Hypoxia ([facility]) #5 Pneumonia Community Acquired Mr. Walton is doing reasonably well on his current blood pressure regimen of carvedilol and amlodipine. SBP is still 160-170, however. His home lisinopril is on hold for unclear ABISAI versus progressionof CKD and his clonidine is discontinued, for the potential of blood pressure spikes. After discussion with [facility], his overnight oximetry showed gas exchange abnormality without clear indication of sleep apnea. This may reflect resolving pulmonary edema and pleural effusions. Repeat chestx-ray today shows the pleural effusions have shrunk. With respect to his elevated D-dimer, now that we have a clear story of him missing medications as acause for his flash pulmonary edema, I would consider this a low probability situation for VTE (no hypoxemia in daytime, no tachycardia, no chest pain, no cancer history, no recent immobilization, no he moptysis), therefore, I think the D-dimer can be disregarded as a false-positive. He has no symptoms of pneumonia, so antibiotics have been stopped. He tested negative for COVID. Plan for overnight oxygen study, and continued titration of blood pressure medications in anticipation of discharge tomorrow. Still waiting renin and aldosterone levels for severe HTN. Finally, the GGOs in R lung apex may warrant follow up imaging. Current activity/mobility: PAMP Level 4 (walks frequently) Diet: regular Tubes/lines: PIV VTE prophylaxis: JAQUELINE Disposition: home tmrw Stable to discharge criteria (not yet met): Tests/procedures/consults Counseling was provided [id number] at bedside regarding the plan of care as stated above. I personally spent over half of a total 25 minutes in counseling and coordination of care as documented above. AL LATHE MACHINIST Kaylyn [facility]ana [facility] L.RJorge. - 05/08/2020 10:36 PM CST Overnight oximeter placed on patient with a SpO2 reading 90% on room air. No signs of respiratory distress noted while RT was in the room. Electronically signed by: Kaylyn Sultana R.R.T., L.R.T. 05/08/20 10:37 PM MANUAL LATHE MACHINIST AL LATHE MACHINIST documented in this encounter H&P Notes Bebeto Ayala M.D., M.S. - 05/08/2020 11:37 AM CST [facility] Medicine 9 ([facility]) Admission Note SUBJECTIVE CHIEF COMPLAINT HISTORY OF PRESENT ILLNESS Mr. Onesimo Walton is a 70 y.o. male who was transferred after admission to the hospital in [place] with an episode of an acute onset of shortness of breath, hypertension, pulmonary infiltratessuspicious for COVID-19, new pleural effusions and acute kidney injury. Patient describes feeling well yesterday and when out driving. He did not have any associated fever, chills, sweats, purulent sputum production, loss of appetite or altered taste or olfactory function. He did not have any chest pain or palpitations. He has otherwise felt well and although his oxygen saturation was initially in the 80% range he was weaned off oxygen prior to transfer and tolerated walking out to his car without exertional dyspnea. He is free of any dyspnea cough or fever at this time. He has not any GI symptoms of nausea, anorexia or diarrhea. He has not noted any change in urination or lower extremity edema. He has not had any PND, orthopnea or exertional dyspnea. His troponin was elevated at 0.066, rising to0.099. He was treated with labetalol for elevated blood pressure and today on transfer his blood pressures in the 170/90 range. His O2 saturation is 99% on room air. I have reviewed and updated the following: Past Medical History, Family History, Social History, andAllergies. Current Outpatient Medications on File Prior to Encounter: ??? amLODIPine (NORVASC) 10 mg tablet, Take 1 tablet (10 mg total) by mouth daily. ??? aspirin [address] tablet, Take 325 mg by mouth daily. Take in evening ??? atorvastatin (LIPITOR) 20 mg tablet, Take 1 tablet (20 mg total) by mouth at bedtime. ??? blood sugar diagnostic (Accu-Chek Guide test strips) strips, FOR TESTING BLOOD SUGARS 6 TIMES DAILY ??? clopidogrel (PLAVIX) 75 mg tablet, Take 1 tablet (75 mg total) by mouth daily. Take indefinitelyfor vascular stent patency (Patient not taking: Reported on 02/22/2020 ) ??? colchicine (COLCRYS) 0.6 mg tablet, Take 1 tablet (0.6 mg total) by mouth daily. (Patient takingdifferently: Take 0.6 mg by mouth daily. Also as needed ) ??? doxepin (SINEquan) 10 mg capsule, TAKE ONE CAPSULE BY MOUTH AT BEDTIME ??? DULoxetine (for_CYMBALTA) [address] capsule, Take 3 capsules by mouth daily. ??? ferrous sulfate 325 mg (65 mg iron) tablet, Take 325 mg by mouth daily. ??? gabapentin (NEURONTIN) 300 mg capsule, Take 300 mg by mouth daily. Taken at bedtime ??? insulin lispro 100 unit/mL injection, Inject 0.1 mL (10 Units total) under the skin 3 (three) times a day with meals. Takes actually 15units TID with meals ??? lancets, 6 each daily. ??? LANTUS SOLOSTAR U-100 INSULIN 100 unit/mL (3 mL) injection, Inject 0.4 mL (40 Units total) underthe skin every morning. ??? lisinopril-hydroCHLOROthiazide (PRINZIDE,ZESTORETIC) 20-12.5 mg per tablet, Take 1 tablet by mouth. ??? metoprolol succinate (TOPROL-XL) 200 mg 24 hr tablet, TAKE ONE TABLET BY MOUTH EVERY EVENING DO NOT CRUSH OR CHEW ??? nicotine (Nicoderm CQ) 14 mg/24 hr patch, Apply 28 mg (1 x 21 mg patch and 1 x 7 mg patch) dailyfor 4-6 weeks, then taper in 7-14 mg steps every 2-6 weeks until off. (Patient not taking: Reported on 02/22/2020 ) ??? nicotine (Nicoderm CQ) 21 mg/24 hr patch, Apply 28 mg (1 x 21 mg patch and 1 x 7 mg patch) dailyfor 4-6 weeks, then taper in 7-14 mg steps every 2-6 weeks until off. (Patient not taking: Reported on 02/22/2020 ) ??? nicotine (Nicoderm CQ) 7 mg/24 hr patch, Apply 28 mg (1 x 21 mg patch and 1 x 7 mg patch) daily for 4-6 weeks, then taper in 7-14 mg steps every 2-[address] on file[address] (Patient not taking: Reported on 02/22/2020 ) ??? nicotine (NICOTROL) 10 mg inhaler, Puff on cartridges for several minutes each hour. Change cartridge after 2-4 hours. (Patient not taking: Reported on 02/22/2020 ) ??? nortriptyline (PAMELOR) 50 mg capsule, Take 100 mg by mouth at bedtime. ??? omeprazole (PriLOSEC) [address] capsule, Take 20 mg by mouth. ??? oxyCODONE (ROXICODONE) 10 mg IR tablet, Take 10 mg by mouth every 6 (six) hours as needed for pain (takes 10mg everyday between 0717-7195.). ??? oxyCODONE-acetaminophen (PERCOCET) 5-325 mg per tablet, TAKE ONE TABLET BY MOUTH TWICE A DAY NEEDED FOR MODERATE TO SEVERE PAIN Takes 2 between 3 and 5pm ??? pantoprazole (PROTONIX) 40 mg EC tablet, Take 1 tablet (40 mg total) by mouth once daily. ??? pen needle, diabetic 31 gauge x 5/16 needle, Inject 1 Injection under the skin daily. Inject 1 injection under the skin 4 times daily ??? rOPINIRole (REQUIP) 3 mg tablet, TAKE ONE TABLET BY MOUTH EVERY DAY IN THE MORNING AND TAKE THREE TABLETS BY MOUTH EVERY DAY AT BEDTIME ??? Vitamin D2 1,250 mcg (50,000 unit) capsule, Take 50,000 Units by mouth once a week. REVIEW OF SYSTEMS Pertinent items are noted in HPI; all other review of systems was negative. OBJECTIVE VITAL SIGNS Temperature: [36.8 ??C] 36.8 ??C Resp Rate: [18] 18 Blood Pressure: (178-216)/(78-92) 178/92 SpO2: [98 %-99 %] 99 % Pulse Rate: [95-96] 95 PHYSICAL EXAM General, pleasant male in no distress. HEENT exam reveals no scleral icterus the oropharynx and posterior pharynx is normal. Neck is is normal. Lungs are clear bilateral without wheezes or rales. Heartregular rate and rhythm. Abdomen is soft with active bowel sounds and no mass organomegaly. 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 Has a healing ulceration of his index finger on the right. Posterior tibial pulses are minimally palpable bilaterally. Dorsalis pedis not palpable. Neurologic patient is alert, oriented x3 and appropriate. He has loss of sensory to sharp touch to the knees bilaterally. DIAGNOSTICS I have reviewed the labs, ECG and xray from [facility] ASSESSMENT / PLAN #1 Acute Respiratory Failure With Hypoxia (HCC) Patient was given dexamethasone and has infiltrates suspicious for COVID-19 although his swab was negative. His D-dimer was elevated. Plan to repeat his swab along with influenza and RSV. Continue coverage for community-acquired pneumonia with ceftriaxone and doxycycline pending results of the studies. #2 Hypertension And Chronic Kidney Disease Stage 1 To 4 Patient has baseline chronic kidney disease stage 3 and his creatinine was elevated above baseline in the mid 2 range yesterday and plan to repeat today. Hold lisinopril for now. Patient has a history of peripheral vascular disease with diabetes, hypertension and heavy tobacco use and would consider renal Dopplers if his creatinine remains elevated and he remains hypertensive. #3 Hypertension NOS As above, continue clonidine, hold lisinopril and determine his dose of metoprolol which should be resumed. #4 Diabetes Mellitus Type 2 With Other Circulatory Complication Hyperglycemic (HCC) Continue current dose of glargine, mealtime insulin and correction scale is ordered may need him on a 5 given that he was treated with dexamethasone. #5 Pneumonia Community Acquired As above, continue coverage for atypical and bacterial cause of his infiltrates and await results ofhis COVID and influenza swab. His case was discussed last night with Cardiology and was felt to have some demand ischemia with mild elevation in troponin. Consider evaluation with echocardiogram. Has apparently had no evidence of inducible ischemia noninvasive studies in the past. Would be at very high risk given his number of risk factors. Patient has chronic anemia, probably due to his chronic kidney disease. Continue current medications for painful peripheral neuropathy and with duloxetine, doxepin and p.r.n. oxycodone. Diet: diabetic diet Tubes/lines: PIV VTE prophylaxis: heparin Code status: Full Code Disposition: Home AL LATHE MACHINIST documented in this encounter Consult Notes Maite Kerns R.N. - 05/10/2020 11:44 AM CSTAssociated Order(s): IP CONSULT TO CARE MANAGEMENT Discharge Planning Assessment SUBJECTIVE Referral Data Referral Source: Early Screen for Discharge Planning Referral Reason: Discharge Planning Discharge Planning: Early screen discharge, Other (Comment)(oxygen) Who was present during the interview?: Patient [employer] Services Used: No Patient Information Primary Caregiver: Self Legal Information Legal Decision Maker: Self Advance Directives: N/A Advance Directives Status: N/A Caregiver Information Caregiver Name: Siria Walton Caregiver Relationship: Caregiver Caregiver Address: same as patient Patient denies having any formal supports in the home environment at this time. Services Requested New oxygen set-up. OBJECTIVE Functional Status (ADLs) Functional Status: Independent Assistive Devices: Dentures lower, Dentures upper, Eyeglasses, Walker, Shower chair, Cane, Crutches Level of Assistance: Independent Dressing: Independent Feeding: Independent Bathing: Independent Grooming: Independent Toileting: Independent Transfer to/from Bed, Chair Etc.: Independent Mobility: Independent Meal Prep: Independent Medication Setup/Administration: Independent Telephone Use: Independent Housekeeping: Independent Shopping: Independent Managing Finances: Independent Behavior: Oriented Communication: Talks, Understands speaking, Understands Cook Islander Environmental Supports Home Environment: House Anticipated Modifications to the Patient's Home: None Anticipated Needs/Assistive Devices ADL Anticipated Needs: None Equipment Anticipated Needs: Other (comment)(oxygen) Transportation Needs: Independent to drive, Support from family Finance/Insurance Primary insurance: MEDICARE A AND B Secondary insurance: [employer] Does the Patient have any Financial Concerns?: No Income/Expense Information: Income meets expenses Discharge Planning Barriers To Discharge: None Strengths: Premorbid level of function, Support of immediate family, Support of extended family/friends, Attitude of family, Attitude of self, Home design, Adaptive/Assistive products, Ability to acquire knowledge Type of Residence: Private residence Support Systems: Spouse, Children, Family members, Friends/neighbors Assistance Recommended after Discharge: None Home Care Services: No Anticipated Discharge Destination: Home or Self Care Does the patient need discharge transport arranged?: No ASSESSMENT / PLAN Assessment: The carpenter cradle and dolly met with Onesimo Walton to discuss his current hospitalization and home going needs. The patient was unaccompanied. The patient was a reliable historian. The role of carpenter cradle and dolly was reviewed. The patient reviewed his prior level of care and support system. The patient receives support from his , children and extended family. The patient described his living environment as a home with bedroom and bathroom on same floor with stairs to enter with rails. Housekeeping, grocery shopping, meal prep, and other household responsibilities have previously been completed by patient. carpenter cradle and dolly discussed the patient's potential needs at dismissal based on their home setting, previous needs and responsibilities, homebound status,and relevant assessments with the patient. The patient will be safe and supported to return home with spouse when medically ready. Support will be provided by patient's , his four children, and extended family. The patient demonstrated understanding when discussing his home going plans and anticipated needs. At this time, the care team anticipates the patient will potentially require the following new service(s) to be set up: oxygen. After reviewing the patient's chart and meeting with the patient, the carpenter cradle and dolly deemed the LACE+/readmission questions were not necessary. The patient reports understanding that he will dismiss from the hospital today. Pending hospital course and medical readiness, no barriers to dismissal have been identified at this time. Plan: The patient agrees with the following plan. 1. Patient's anticipated discharge disposition is: Home to Self Care with DME Accepted and selected:[facility] 2. Transportation upon dismissal will be provided by family--patient's . 3. carpenter cradle and dolly recommended a shower seat, grab bars and reaching out to family, friends, and neighbors for assistance. 4. carpenter cradle and dolly provided information regarding the dismissal process and the Senior Linkage Line (MD Board on Aging) handout. 5. carpenter cradle and dolly placed or requested the following hospital-based consult orders and/or referrals:None. 6. carpenter cradle and dolly will continue to assess for homegoing needs with the interdisciplinary team. 7. carpenter cradle and dolly encouraged the patient to reach out with any questions/concerns. Care Management will continue to follow. Home oxygen will be provided by: Selected Continued Care - Admitted Since 05/08/2020 Durable Medical Equipment Coordination complete Service Provider Selected Services Address Phone Fax Patient Preferred [employer] Durable Medical Equipment [address] , [facility] [address] [phone] -- Contact: Intake Portable tanks for transport to be delivered to the patient???s room prior to dismissal. Concentrator to be delivered and set up at patient???s home. NURSING: - Fax prescription to oxygen provider. - Fax any necessary clinical documentation supporting oxygen need including After Visit Summary andDME justification. - Arrange initial oxygen delivery. PRIMARY SERVICE: - Review and sign oxygen prescription and supporting documentation including After Visit Summary and DME justification prior to patient???s dismissal. CASE MANAGEMENT: - Will continue to follow. Signed by: Maite Kerns R.N. 05/10/2020 AL LATHE MACHINIST documented in this encounter Nursing Notes Glenn Tavares R.R.T., L.R.T. - 05/10/2020 5:35 AM CST Nocturnal trend orders in place for patient. RN instructed to place the patient on room air at the beginning of the study and notify the monitoring lab when patient is ready for bed. RN instructed to chart that patient was placed on room air in [facility]. RN notified that lab will call when the patient is to be placed on oxygen if needed. Will follow up with RN around 0500. End of study note: RN stated patient required 2 L nasal cannula overnight for nocturnal oxygen study. Electronically signed by: Glenn Tavares R.R.T., L.RFeiTFei 05/10/20 5:35 AM MANUAL LATHE MACHINIST AL LATHE MACHINIST Stef Thurman R.N., RenettaS.R.N. - 05/09/2020 10:44 PM CST Problem: PAIN - ADULT Goal: PT VERBALIZES/DEMONSTRATES ADEQUATE COMFORT LEVEL OR BASELINE Outcome: Progressing Problem: KNOWLEDGE DEFICIT Goal: Patient/family/caregiver demonstrates understanding of disease process, treatment plan, medications, and discharge instructions Outcome: Progressing Problem: INFECTION - ADULT Goal: Absence of infection during hospitalization Outcome: Progressing Shift Goals: Patient will maintain SBP between 140-180 on RUE cuff measurements. Identify possible barriers to meeting goals/advancing plan of care: Resistant hypertension End of Shift Summary: Patient's systolic blood pressure remained elevated throughout shift around 170-190 on RUE. Service was notified multiple times throughout shift, most recently for BP of 182/73 @2200. No new orders currently. AL LATHE MACHINIST Glenn Tavares R.R.T., L.R.T. - 05/09/2020 10:16 PM CST Nocturnal trend orders in place for patient. RN instructed to place the patient on room air at the beginning of the study and notify the monitoring lab when patient is ready for bed. RN instructed to chart that patient was placed on room air in [facility]. RN notified that lab will call when the patient is to be placed on oxygen if needed. Will follow up with RN around 0500. Electronically signed by: Glenn Tavares R.R.T., L.R.T. 05/09/20 10:16 PM MANUAL LATHE MACHINIST AL LATHE MACHINIST documented in this encounter Miscellaneous Notes Hospital Course - Niels Casey M.D. - 05/09/2020 1:15 PM CST Mr. Onesimo Walton is a 70 y.o. male who was transferred after admission to the hospital in [place] with an episode of an acute onset of shortness of breath, hypertension, pulmonary infiltratessuspicious for COVID-19, new pleural effusions and acute kidney injury. Patient describes feeling well day before admission and when out driving. He did not have any associated fever, chills, sweats, purulent sputum production, loss of appetite or altered taste or olfactory function. He did not have any chest pain or palpitations. He has otherwise felt well and although his oxygen saturation was initially in the 80% range he was weaned off oxygen prior to transfer and tolerated walking out to his car without exertional dyspnea. He is free of any dyspnea cough or fever at this time. He has not any GI symptoms of nausea, anorexia or diarrhea. He has not noted any change in urination or lower extremity edema. He has not had any PND, orthopnea or exertional dyspnea. His troponin was elevated at 0.066, rising to 0.099. He was treated with labetalol for elevated blood pressure and today on transfer his blood pressures in the 170/90 range. His O2 saturation was 99% on room air on arrival. He had a chest CT prior to arrival that showed bilateral pleural effusions, lung opacities consistent with pulmonary edema, and some nonspecific upper lobe opacities as well. His blood pressure was as high as 220 systolic here. His medications were rearranged, and it turned out that he had missed a dose of his antihypertensives the evening prior to coming in. Because clonidine can cause dangerous spikes in blood pressure when missed, we revised his medications so that he would not be on clonidine going home. His blood pressure was controlled on the new regimen though he was still a bit hypertensive. Remained asymptomatic throughout. He had an overnight oximetry done which was not suggestive of sleep apnea but did reveal a gas exchange abnormality. This was suspected to reflect resolving pulmonary edema and pleural effusions, which were confirmed to be shrinking on chest x-ray. He qualified for 2 L of oxygen at night, and I suspect he will not need this for long. Seen and examined on day of discharge and found to be in stable condition and without complaints. Noinfectious symptoms. We offered him smoking cessation resources but he declined. No anginal symptoms, no respiratory complaints, and blood pressure control was improving. C- LUNG CT INTERPRETATION FINDINGS: There are multiple focal groundglass opacities in the right upper lobe, most prominent in the subpleural lung at the apex. Slight patchy nodular groundglass opacities in the left upper lobe. Moderate bilateral pleural effusions with dependent compressive atelectasis in both lower lobes. Smooth interlobular septal thickening throughout both lungs in a peripheral distribution. ?? Mucus in the distal trachea and tracking into the right mainstem bronchus. Tracheobronchial tree otherwise widely patent. ?? Mediastinal lymphadenopathy. For example, a 1.5 cm pretracheal node (series 2 image 29). There are also small left hilar and subcarinal lymph nodes that are calcified, with a calcified pulmonary granuloma in the lingula. ?? Old fracture deformities of the left anterior 5th and 6th ribs. ?? The sagittal image series is incomplete. ?? IMPRESSION: 1. Findings consistent with volume overload/congestive failure. ?? 2. Multifocal groundglass opacities most notable in the right apex could also be related to edema, but the distribution is not typical for that. These are most suggestive of a superimposed infectious/inflammatory process. COVID-19 pneumonia is possible, but this is not a specific appearance. ?? 3. Mediastinal lymphadenopathy, indeterminate. AL LATHE MACHINIST documented in this encounter Plan of Treatment Not on filedocumented as of this encounter Procedures Procedure Name Priority Date/Time Associated Comments Diagnosis GLUCOSE POCT, B Routine 05/10/2020 11:52 Results for AM MANUAL LATHE MACHINIST this procedure are in the results section. GLUCOSE POCT, B Routine 05/10/2020 8:09 Results f or AM MANUAL LATHE MACHINIST this procedure are in the results section. GLUCOSE POCT, B Routine 05/10/2020 7:51 Results f or AM MANUAL LATHE MACHINIST this procedure are in the results section. CBC WITH Routine 05/10/2020 7:22 Results for DIFFERENTIAL, B AM MANUAL LATHE MACHINIST this procedu re are in the results section. BASIC METABOLIC Routine 05/10/2020 7:22 Results f or PANEL, S/P AM MANUAL LATHE MACHINIST this procedure are in the results section. INFLUENZA A/B AND Routine 05/09/2020 9:36 Results for RSV, PCR PM MANUAL LATHE MACHINIST this procedure are in the results section. GLUCOSE POCT, B Routine 05/09/2020 9:29 Results f or PM MANUAL LATHE MACHINIST this procedure are in the results section. GLUCOSE POCT, B Routine 05/09/2020 5:22 Results f or PM MANUAL LATHE MACHINIST this procedure are in the results section. GLUCOSE POCT, B Routine 05/09/2020 4:10 Results f or PM MANUAL LATHE MACHINIST this procedure are in the results section. GLUCOSE POCT, B Routine 05/09/2020 2:56 Results f or PM MANUAL LATHE MACHINIST this procedure are in the results section. NOCTURNAL OXYGEN Routine 05/09/2020 2:12 STUDY - RT PM MANUAL LATHE MACHINIST DX CHEST AP OR PA AND RAD - Routine 05/09/2020 2:01 Re sults for LATERAL 2 VIEWS (most inpatients PM MANUAL LATHE MACHINIST this pro cedure and all are in the outpatients) results section. GLUCOSE POCT, B Routine 05/09/2020 12:45 Results for PM MANUAL LATHE MACHINIST this procedure are in the results section. GLUCOSE POCT, B Routine 05/09/2020 12:09 Results for PM MANUAL LATHE MACHINIST this procedure are in the results section. GLUCOSE POCT, B Routine 05/09/2020 11:46 Results for AM MANUAL LATHE MACHINIST this procedure are in the results section. GLUCOSE POCT, B Routine 05/09/2020 11:30 Results for AM MANUAL LATHE MACHINIST this procedure are in the results section. RT PULSE OXIMETRY, Routine 05/09/2020 10:23 Resul ts for OVERNIGHT AM MANUAL LATHE MACHINIST this procedure are in the results section. ADULT OXYGEN THERAPY Routine 05/09/2020 8:01 AM MANUAL LATHE MACHINIST GLUCOSE POCT, B Routine 05/09/2020 7:25 Results f or AM MANUAL LATHE MACHINIST this procedure are in the results section. GLUCOSE POCT, B Routine 05/09/2020 7:06 Results f or AM MANUAL LATHE MACHINIST this procedure are in the results section. GLUCOSE POCT, B Routine 05/09/2020 6:36 Results f or AM MANUAL LATHE MACHINIST this procedure are in the results section. GLUCOSE POCT, B Routine 05/09/2020 6:18 Results f or AM MANUAL LATHE MACHINIST this procedure are in the results section. D-DIMER, P Routine 05/09/2020 4:54 Results for AM MANUAL LATHE MACHINIST this procedure are in the results section. CBC WITH Routine 05/09/2020 4:54 Results for DIFFERENTIAL, B AM MANUAL LATHE MACHINIST this procedu re are in the results section. C-REACTIVE PROTEIN Routine 05/09/2020 4:54 Result s for (CRP), S/P AM MANUAL LATHE MACHINIST this procedure are in the results section. FERRITIN, S Routine 05/09/2020 4:54 Results for AM MANUAL LATHE MACHINIST this procedure are in the results section. COMPREHENSIVE Routine 05/09/2020 4:54 Results for METABOLIC PANEL, S/P AM MANUAL LATHE MACHINIST this pr ocedure are in the results section. GLUCOSE POCT, B Routine 05/08/2020 10:13 Results for PM MANUAL LATHE MACHINIST this procedure are in the results section. ADULT OXYGEN THERAPY Routine 05/08/2020 8:01 PM MANUAL LATHE MACHINIST GLUCOSE POCT, B Routine 05/08/2020 6:33 Results f or PM MANUAL LATHE MACHINIST this procedure are in the results section. US KIDNEYS WITH RENAL RAD - Routine 05/08/2020 5:47 Re sults for ARTERY DOPPLER (most inpatients PM MANUAL LATHE MACHINIST this proc edure and all are in the outpatients) results section. (TTE) 2D ECHO DOPPLER Routine 05/08/2020 4:32 Res ults for COLOR PM MANUAL LATHE MACHINIST this procedure are in the results section. ALDOSTERONE, P Routine 05/08/2020 3:10 Results fo r PM MANUAL LATHE MACHINIST this procedure are in the results section. RENIN ACTIVITY, P Routine 05/08/2020 3:10 Results for PM MANUAL LATHE MACHINIST this procedure are in the results section. IFLU A, B, SARS Routine 05/08/2020 2:34 Results f or COV-2, PCR, RAPID,V PM MANUAL LATHE MACHINIST this pro cedure are in the results section. GLUCOSE POCT, B Routine 05/08/2020 1:01 Results f or PM MANUAL LATHE MACHINIST this procedure are in the results section. INTERPRETATION OF RAD - Routine 05/08/2020 12:45 Resul ts for OUTSIDE CT CHEST (most inpatients PM MANUAL LATHE MACHINIST this pr ocedure and all are in the outpatients) results section. CBC WITH Routine 05/08/2020 12:16 Results for DIFFERENTIAL, B PM MANUAL LATHE MACHINIST this procedu re are in the results section. BASIC METABOLIC Routine 05/08/2020 12:16 Results for PANEL, S/P PM MANUAL LATHE MACHINIST this procedure are in the results section. ADULT OXYGEN THERAPY Routine 05/08/2020 11:37 AM MANUAL LATHE MACHINIST ADULT OXYGEN THERAPY Routine 05/08/2020 11:37 AM MANUAL LATHE MACHINIST documented in this encounter Results (ABNORMAL) Glucose, POCT (05/10/2020 11:52 AM MANUAL LATHE MACHINIST) Analysis Performed At Patho logist Time Signature Glucose, POCT, 248 (H) 70 - 140 05/10/2020 [facility] B mg/dL 11:55 AM MANUAL LATHE MACHINIST Site Capillary 05/10/2020 [facility] 11:55 AM MANUAL LATHE MACHINIST Last Intake 3-4 hours 05/10/2020 [facility] 11:55 AM MANUAL LATHE MACHINIST Specimen Anatomical Collection Method Collection Time Receive d Time (Source) Location / / Volume Laterality Blood 05/10/2020 11:52 05/10/2020 AM MANUAL LATHE MACHINIST 11:56 AM MANUAL LATHE MACHINIST Unknown Provider LAB POCT ORDERABLES-MANUAL Performing Organization Address City/State/ZIP Code Phon e Number POC [facility] [address] [place] [address] [place] [address] [place] [facility] [address] Glucose, POCT (05/10/2020 8:09 AM MANUAL LATHE MACHINIST) Analysis Performed At Patho logist Time Signature Glucose, POCT, 85 70 - 140 05/10/2020 [facility] B mg/dL 8:12 AM MANUAL LATHE MACHINIST Site Capillary 05/10/2020 [facility] 8:12 AM MANUAL LATHE MACHINIST Last Intake <1 hour 05/10/2020 [facility] 8:12 AM MANUAL LATHE MACHINIST Specimen Anatomical Collection Method Collection Time Receive d Time (Source) Location / / Volume Laterality Blood 05/10/2020 8:09 AM 0 8:12 MANUAL LATHE MACHINIST AM MANUAL LATHE MACHINIST Unknown Provider LAB POCT ORDERABLES-MANUAL Performing Organization Address City/[facility] Phon e Number POC [facility] [address] [place] [address] [place] [address] [place] [facility] [address] [facility] (ABNORMAL) Glucose, POCT (05/10/2020 7:51 AM MANUAL LATHE MACHINIST) Analysis Performed At Patho logist Time Signature Glucose, POCT, 69 (L) 70 - 140 05/10/2020 [facility] B mg/dL 7:57 AM MANUAL LATHE MACHINIST Site Capillary 05/10/2020 [facility] 7:57 AM MANUAL LATHE MACHINIST Last Intake > 4 hours 05/10/2020 [facility] 7:57 AM MANUAL LATHE MACHINIST Specimen Anatomical Collection Method Collection Time Receive d Time (Source) Location / / Volume Laterality Blood 05/10/2020 7:51 AM 0 7:58 MANUAL LATHE MACHINIST AM MANUAL LATHE MACHINIST Unknown Provider LAB POCT ORDERABLES-MANUAL Performing Organization Address City/[facility] Code Phon e Number POC [facility] [address] [place] [address] [place] [address] [place] [facility] [address] (ABNORMAL) CBC with Differential, Blood (05/10/2020 7:22 AM MANUAL LATHE MACHINIST) Patholo gist Method Time Signature Hemoglobin 11.4 (L) 13.2 - 05/10/2020 DTL 16.6 g/dL 8:09 AM MANUAL LATHE MACHINIST Hematocrit 35.2 (L) 38.3 - 05/10/2020 DTL 48.6 % 8:09 AM MANUAL LATHE MACHINIST Erythrocytes 3.74 (L) 4.35 - 05/10/2020 DTL 5.65 8:09 AM MANUAL LATHE MACHINIST x10(12)/L MCV 94.1 78.2 - 05/10/2020 DTL 97.9 fL 8:09 AM MANUAL LATHE MACHINIST RBC Distrib Width 15.0 (H) 11.8 - 05/10/2020 DTL 14.5 % 8:09 AM MANUAL LATHE MACHINIST Platelet Count 379 (H) 135 - 317 05/10/2020 DTL x10(9)/L 8:09 AM MANUAL LATHE MACHINIST Leukocytes 13.0 (H) 3.4 - 9.6 05/10/2020 DTL x10(9)/L 8:09 AM MANUAL LATHE MACHINIST Neutrophils 9.44 (H) 1.56 - 05/10/2020 DTL 6.45 8:09 AM MANUAL LATHE MACHINIST x10(9)/L Lymphocytes 1.89 0.95 - 05/10/2020 DTL 3.07 8:09 AM MANUAL LATHE MACHINIST x10(9)/L Monocytes 1.11 (H) 0.26 - 05/10/2020 DTL 0.81 8:09 AM MANUAL LATHE MACHINIST x10(9)/L Eosinophils 0.50 (H) 0.03 - 05/10/2020 DTL 0.48 8:09 AM MANUAL LATHE MACHINIST x10(9)/L Basophils 0.05 0.01 - 05/10/2020 DTL 0.08 8:09 AM MANUAL LATHE MACHINIST x10(9)/L Specimen Anatomical Collection Method Collection Time Receive d Time (Source) Location / / Volume Laterality Blood (Blood, 05/10/2020 7:22 AM 05/10/20 20 7:58 Venous) MANUAL LATHE MACHINIST AM MANUAL LATHE MACHINIST Niels Casey M.D. LAB BLOOD ADD-ON Performing Organization Address City/State/ZIP Code Phon e Number [facility] - [address] [place], [place] [address] [facility] [place] [address] [facility] [address] (ABNORMAL) Basic Metabolic Panel (05/10/2020 7:22 AM MANUAL LATHE MACHINIST) Analysis Performed At Patho logist Time Signature Potassium, S 4.1 3.6 - 5.2 05/10/2020 DTL mmol/L 8:37 AM MANUAL LATHE MACHINIST Sodium, S 142 135 - 145 05/10/2020 DTL mmol/L 8:37 AM MANUAL LATHE MACHINIST Chloride, S 104 98 - 107 05/10/2020 DTL mmol/L 8:37 AM MANUAL LATHE MACHINIST Bicarbonate, S 25 22 - 29 05/10/2020 DTL mmol/L 8:37 AM MANUAL LATHE MACHINIST Anion Gap 13 7 - 15 05/10/2020 DTL 8:37 AM MANUAL LATHE MACHINIST BUN (Blood Urea 28 (H) 8 - 24 05/10/2020 DTL Nitrogen), S mg/dL 8:37 AM MANUAL LATHE MACHINIST Creatinine 2.34 (H) 0.74 - 05/10/2020 DTL 1.35 mg/dL 8:37 AM MANUAL LATHE MACHINIST eGFR-Non 28 (L) >=60 05/10/2020 DTL Black/ mL/min/BSA 8:37 AM MANUAL LATHE MACHINIST Ni[place]an Comment: ----ADDITIONAL INFORMATION---- Estimated GFR calculated using the 2009 CKD_EPI creatinine equation. eGFR-Black/ 32 (L) >=60 mL/min/BSA 2019 8:37 AM MANUAL LATHE MACHINIST DTL Comment: ----ADDITIONAL INFORMATION---- Estimated GFR calculated using the 2009 CKD_EPI creatinine equation. Calcium, Total, S 8.2 (L) 8.8 - 10.2 mg/dL 05/10/2020 8:37 AM MANUAL LATHE MACHINIST DTL Glucose, S 60 (L) 70 - 140 mg/dL 05/10/2020 8:37 AM MANUAL LATHE MACHINIST D TL Specimen Anatomical Collection Method Collection Time Receive d Time (Source) Location / / Volume Laterality Blood (Blood, 05/10/2020 7:22 AM 05/10/20 20 7:59 Venous) MANUAL LATHE MACHINIST AM MANUAL LATHE MACHINIST Niels Casey M.D. LAB BLOOD ADD-ON Performing Organization Address City/State/ZIP Code Phon e Number [facility] - [address] [place], [place] [address] [facility] [place] [address] [facility] [address] Influenza A/B and Respiratory Syncytial Virus, PCR (05/09/2020 9:36 PM MANUAL LATHE MACHINIST) Component Value Ref Range Test Analysis Performed Pathologis t Method Time At Signature Specimen NASOPHARYNGEAL 05/10/2020 DTL Source SWAB 12:17 AM MANUAL LATHE MACHINIST Influenza A, Negative Negative 05/10/2020 DTL PCR 12:17 AM MANUAL LATHE MACHINIST Influenza B, Negative Negative 05/10/2020 DTL PCR 12:17 AM MANUAL LATHE MACHINIST Respiratory Negative Negative 05/10/2020 DTL Syncytial 12:17 AM Virus, PCR MANUAL LATHE MACHINIST Comment: ----ADDITIONAL INFORMATION---- This assay is performed using the FDA-cl eared Simplexa Flu A/B and RSV Direct ([employer] For testing p erformed at [facility] in [place], [place], performance characteristics for samp les submitted in phosphate buffered saline were determined by [facility] in a manner consistent with CLIA requirements. Specimen Anatomical Collection Method Collection Time Receive d Time (Source) Location / / Volume Laterality Varies 05/09/2020 9:36 PM 0 9:36 (Nasopharynx) MANUAL LATHE MACHINIST PM MANUAL LATHE MACHINIST Bebeto Ayala M.D., M.S. LAB MICROBIOLOGY - GENERAL ORDERABLES Performing Organization Address [facility] Phon e Number [facility] - [address] [facility] (ABNORMAL) Glucose, POCT (05/09/2020 9:29 PM MANUAL LATHE MACHINIST) Analysis Performed At [facility] Signature Glucose, POCT, 222 (H) 70 - 140 05/09/2020 [facility] B mg/dL 9:32 PM MANUAL LATHE MACHINIST Site Capillary 05/09/2020 [facility] 9:32 PM MANUAL LATHE MACHINIST Last Intake > 4 hours 05/09/2020 [facility] 9:32 PM MANUAL LATHE MACHINIST Specimen Anatomical Collection Method Collection Time Receive d Time (Source) Location / / Volume Laterality Blood 05/09/2020 9:29 PM 0 9:33 MANUAL LATHE MACHINIST PM MANUAL LATHE MACHINIST Unknown Provider LAB POCT ORDERABLES-MANUAL Performing Organization Address City/[facility] Phon e Number [facility] [address] [place] [address] [place] [address] (ABNORMAL) Glucose, POCT (05/09/2020 5:22 PM MANUAL LATHE MACHINIST) [facility] Signature Glucose, POCT, 176 (H) 70 - 140 05/09/2020 [facility] B mg/dL 5:29 PM MANUAL LATHE MACHINIST Site Capillary 05/09/2020 [facility] 5:29 PM MANUAL LATHE MACHINIST Last Intake > 4 hours 05/09/2020 [facility] 5:29 PM MANUAL LATHE MACHINIST Specimen Anatomical Collection Method Collection Time Receive d Time (Source) Location / / Volume Laterality Blood 05/09/2020 5:22 PM 0 5:29 MANUAL LATHE MACHINIST PM MANUAL LATHE MACHINIST Unknown Provider LAB POCT ORDERABLES-MANUAL Performing Organization Address City/[facility]/ZIP Code Phon e Number POC [facility] [address] [place] [address] [place] [address] [place] [facility] [address] [facility] (ABNORMAL) Glucose, POCT (05/09/2020 4:10 PM MANUAL LATHE MACHINIST) Analysis Performed At Patho logist Time Signature Glucose, POCT, 150 (H) 70 - 140 05/09/2020 [facility] B mg/dL 4:12 PM MANUAL LATHE MACHINIST Site Capillary 05/09/2020 [facility] 4:12 PM MANUAL LATHE MACHINIST Last Intake 2-3 hours 05/09/2020 [facility] 4:12 PM MANUAL LATHE MACHINIST Specimen Anatomical Collection Method Collection Time Receive d Time (Source) Location / / Volume Laterality Blood 05/09/2020 4:10 PM 0 4:13 MANUAL LATHE MACHINIST PM MANUAL LATHE MACHINIST Unknown Provider LAB POCT ORDERABLES-MANUAL Performing Organization Address City/[facility] Phon e Number POC [facility] [address] [place] [address] [place] [address] [place] [facility] 200 [facility] (ABNORMAL) Glucose, POCT (05/09/2020 2:56 PM MANUAL LATHE MACHINIST) Analysis Performed At Patho logist Time Signature Glucose, POCT, 146 (H) 70 - 140 05/09/2020 [facility] B mg/dL 3:04 PM MANUAL LATHE MACHINIST Site Capillary 05/09/2020 [facility] 3:04 PM MANUAL LATHE MACHINIST Last Intake 1-2 hours 05/09/2020 [facility] 3:04 PM MANUAL LATHE MACHINIST Specimen Anatomical Collection Method Collection Time Receive d Time (Source) Location / / Volume Laterality Blood 05/09/2020 2:56 PM 0 3:04 MANUAL LATHE MACHINIST PM MANUAL LATHE MACHINIST Unknown Provider LAB POCT ORDERABLES-MANUAL Performing Organization Address City/[facility] Code Phon e Number POC [facility] [address] [place] [address] [place] [address] [place] P[facility] 200 [facility] DX Chest AP or PA and Lateral 2 Views (05/09/2020 2:01 PM MANUAL LATHE MACHINIST) Anatomical Region Laterality Modality Chest, Thoracic RST LOS, Thoracic ARZ LOS, Thoracic N/A Digital Radiography FLA LOS Specimen (Source) Anatomical Collection Method Collection Time Re ceived Time Location / / Volume Laterality 05/09/2020 2:04 PM MANUAL LATHE MACHINIST Impressions 05/09/2020 2:07 PM MANUAL LATHE MACHINIST Since 05/07/2020, interval decrease in size of small bilateral pleural effusions. No focal consolidatio n. No pneumothorax. Narrative 05/09/2020 2:07 PM MANUAL LATHE MACHINIST EXAM: ??DX CHEST AP OR PA AND LATERAL 2 VIEWS Procedure Note Armand Raines M.D. - 05/09/2020Fo rmatting of this note might be different from the original. EXAM: DX CHEST AP OR PA AND LATERAL 2 EWS IMPRESSION: Since 05/07/2020, interval decrease in s ize of small bilateral pleural effusions. No focal consolidatio n. No pneumothorax. Niels Casey M.D. IMSophie DIAGNOSTIC IMAGING PROCE DURES Glucose, POCT (05/09/2020 12:45 PM MANUAL LATHE MACHINIST) Analysis Performed At Patho logist Time Signature Glucose, POCT, 136 70 - 140 05/09/2020 [facility] B mg/dL 12:49 PM MANUAL LATHE MACHINIST Site Capillary 05/09/2020 [facility] 12:49 PM MANUAL LATHE MACHINIST Last Intake 1-2 hours 05/09/2020 [facility] 12:49 PM MANUAL LATHE MACHINIST Specimen Anatomical Collection Method Collection Time Receive d Time (Source) Location / / Volume Laterality Blood 05/09/2020 12:45 05/09/2020 PM MANUAL LATHE MACHINIST 12:50 PM MANUAL LATHE MACHINIST Unknown Provider LAB POCT ORDERABLES-MANUAL Performing Organization Address City/State/ZIP Code Phon e Number POC [facility] [address] [place] [address] [place] [address] [place] [facility] 200 [facility] Glucose, POCT (05/09/2020 12:09 PM MANUAL LATHE MACHINIST) Analysis Performed At Patho logist Time Signature Glucose, POCT, 85 70 - 140 05/09/2020 [facility] B mg/dL 12:49 PM MANUAL LATHE MACHINIST Site Capillary 05/09/2020 [facility] 12:49 PM MANUAL LATHE MACHINIST Specimen Anatomical Collection Method Collection Time Receive d Time (Source) Location / / Volume Laterality Blood 05/09/2020 12:09 05/09/2020 PM MANUAL LATHE MACHINIST 12:49 PM MANUAL LATHE MACHINIST Unknown Provider LAB POCT ORDERABLES-MANUAL Performing Organization Address City/[facility] Phon e Number POC [facility] [address] [place] [address] [place] [address] [place] P[facility] [address] [facility] (ABNORMAL) Glucose, POCT (05/09/2020 11:46 AM MANUAL LATHE MACHINIST) Analysis Performed At Patho logist Time Signature Glucose, POCT, 59 (L) 70 - 140 05/09/2020 [facility] B mg/dL 12:49 PM MANUAL LATHE MACHINIST Site Capillary 05/09/2020 [facility] 12:49 PM MANUAL LATHE MACHINIST Specimen Anatomical Collection Method Collection Time Receive d Time (Source) Location / / Volume Laterality Blood 05/09/2020 11:46 05/09/2020 AM MANUAL LATHE MACHINIST 12:49 PM MANUAL LATHE MACHINIST Unknown Provider LAB POCT ORDERABLES-MANUAL Performing Organization Address City/[facility] Phon e Number POC [facility] [address] [place] [address] [place] [address] [place] P[facility] [address] (ABNORMAL) Glucose, POCT (05/09/2020 11:30 AM MANUAL LATHE MACHINIST) Analysis Performed At Patho logist Time Signature Glucose, POCT, 29 (L) 70 - 140 05/09/2020 [facility] B mg/dL 12:49 PM MANUAL LATHE MACHINIST Site Capillary 05/09/2020 [facility] 12:49 PM MANUAL LATHE MACHINIST Last Intake 3-4 hours 05/09/2020 [facility] 12:49 PM MANUAL LATHE MACHINIST Specimen Anatomical Collection Method Collection Time Receive d Time (Source) Location / / Volume Laterality Blood 05/09/2020 11:30 05/09/2020 AM MANUAL LATHE MACHINIST 12:49 PM MANUAL LATHE MACHINIST Unknown Provider LAB POCT ORDERABLES-MANUAL Performing Organization Address City/State/[facility] Phon e Number POC [facility] [address] [place] [address] [place] [address] [place] [facility] [address] RT Pulse Oximetry, Overnight (05/09/2020 10:23 AM MANUAL LATHE MACHINIST) Specimen (Source) Anatomical Location Collection Method / Collectio n Time Received Time / Laterality Volume 05/08/2020 Narrative DELMAR NVISION EAP - 05/12/2020 12:[address] This result has an attachment that is no t available. See PDF report for results Procedure Note Jorge Carrillo M.B.B.S. - 05/12/2020 See PDF report for results Niels Casey M.D. [facility]ENTER ORDERABLES Performing Organization Address City/State/ZIP Code Phon e Number DELMAR NVISION EAP Glucose, POCT (05/09/2020 7:25 AM MANUAL LATHE MACHINIST) Analysis Performed At Patho logist Time Signature Glucose, POCT, 131 70 - 140 05/09/2020 [facility] B mg/dL 7:48 AM MANUAL LATHE MACHINIST Site Capillary 05/09/2020 P[facility] 7:48 AM MANUAL LATHE MACHINIST Specimen Anatomical Collection Method Collection Time Receive d Time (Source) Location / / Volume Laterality Blood 05/09/2020 7:25 AM 0 7:49 MANUAL LATHE MACHINIST AM MANUAL LATHE MACHINIST Unknown Provider LAB POCT ORDERABLES-MANUAL Performing Organization Address City/[facility] Phon e Number POC [facility] [address] [place] [address] [place], [place] [id number] [place] [address] Glucose, POCT (05/09/2020 7:06 AM MANUAL LATHE MACHINIST) Analysis Performed At Patho logist Time Signature Glucose, POCT, 125 70 - 140 05/09/2020 PCLX B mg/dL 7:09 AM MANUAL LATHE MACHINIST Site Capillary 05/09/2020 PCLX 7:09 AM MANUAL LATHE MACHINIST Specimen Anatomical Collection Method Collection Time Receive d Time (Source) Location / / Volume Laterality Blood 05/09/2020 7:06 AM 0 7:09 MANUAL LATHE MACHINIST AM MANUAL LATHE MACHINIST Unknown Provider LAB POCT ORDERABLES-MANUAL Performing Organization Address City/[facility]/[place] [facility] [place] Number POC [facility] [address] [place] [address] [place] [address] [place] P[facility] [address] (ABNORMAL) Glucose, POCT (05/09/2020 6:36 AM MANUAL LATHE MACHINIST) Analysis Performed At Patho logist Time Signature Glucose, POCT, 56 (L) 70 - 140 05/09/2020 [facility]CL[facility] B mg/dL 6:38 AM MANUAL LATHE MACHINIST Site Capillary 05/09/2020 PCLX 6:38 AM MANUAL LATHE MACHINIST Last Intake <1 hour 05/09/2020 [facility] 6:38 AM MANUAL LATHE MACHINIST Specimen Anatomical Collection Method Collection Time Receive d Time (Source) Location / / Volume Laterality Blood 05/09/2020 6:36 AM 0 6:38 MANUAL LATHE MACHINIST AM MANUAL LATHE MACHINIST Unknown Provider LAB POCT ORDERABLES-MANUAL Performing Organization Address City/[facility] Phon e Number POC [facility] [address] [place] [address] [place], [place] [id number] [place] [address] POC 200 [facility] (ABNORMAL) Glucose, POCT (05/09/2020 6:18 AM MANUAL LATHE MACHINIST) Analysis Performed At Patho logist Time Signature Glucose, POCT, 49 (L) 70 - 140 05/09/2020 [facility]CL[facility] B mg/dL 6:20 AM MANUAL LATHE MACHINIST Site Capillary 05/09/2020 PCLX 6:20 AM MANUAL LATHE MACHINIST Last Intake > 4 hours 05/09/2020 PCL[facility] 6:20 AM MANUAL LATHE MACHINIST Specimen Anatomical Collection Method Collection Time Receive d Time (Source) Location / / Volume Laterality Blood 05/09/2020 6:18 AM 0 6:20 MANUAL LATHE MACHINIST AM MANUAL LATHE MACHINIST Unknown Provider LAB POCT ORDERABLES-MANUAL Performing Organization Address City/[facility] Phon e Number POC [facility] [address] [place] [address] [place], [place] [phone] [place] [address] POC 200 [facility] (ABNORMAL) Comprehensive Metabolic Panel (05/09/2020 4:54 AM MANUAL LATHE MACHINIST) Analysis Performed At Patho logist Time Signature Potassium, S 4.0 3.6 - 5.2 05/09/2020 DTL mmol/L 5:45 AM MANUAL LATHE MACHINIST Sodium, S 142 135 - 145 05/09/2020 DTL mmol/L 5:45 AM MANUAL LATHE MACHINIST Chloride, S 106 98 - 107 05/09/2020 DTL mmol/L 5:45 AM MANUAL LATHE MACHINIST Bicarbonate, S 24 22 - 29 05/09/2020 DTL mmol/L 5:45 AM MANUAL LATHE MACHINIST Anion Gap 12 7 - 15 05/09/2020 DTL 5:45 AM MANUAL LATHE MACHINIST BUN (Blood Urea 29 (H) 8 - 24 05/09/2020 DTL Nitrogen), S mg/dL 5:45 AM MANUAL LATHE MACHINIST Creatinine 2.35 (H) 0.74 - 05/09/2020 DTL 1.35 mg/dL 5:45 AM MANUAL LATHE MACHINIST eGFR-Non 27 (L) >=60 05/09/2020 DTL Black/ mL/min/BSA 5:45 AM MANUAL LATHE MACHINIST Niuean Comment: ----ADDITIONAL INFORMATION---- Estimated GFR calculated using the 2009 CKD_EPI creatinine equation. eGFR-Black/ 32 (L) >=60 mL/min/BSA 2019 5:45 AM MANUAL LATHE MACHINIST DTL Comment: ----ADDITIONAL INFORMATION---- Estimated GFR calculated using the 2009 CKD_EPI creatinine equation. Calcium, Total, S 7.9 (L) 8.8 - 10.2 mg/dL 05/09/2020 5:45 AM MANUAL LATHE MACHINIST DTL Glucose, S 47 (CL) 70 - 140 mg/dL 05/09/2020 5:45 AM MANUAL LATHE MACHINIST D TL Protein, Total, S 5.9 (L) 6.3 - 7.9 g/dL 05/09/2020 5:45 A M MANUAL LATHE MACHINIST DTL Albumin, S 3.0 (L) 3.5 - 5.0 g/dL 05/09/2020 5:45 AM MANUAL LATHE MACHINIST D TL Aspartate Aminotransferase 26 8 - 48 U/L 05/09/2020 5 :45 AM MANUAL LATHE MACHINIST DTL (AST), S Alkaline Phosphatase, S 107 40 - 129 U/L 05/09/2020 5: 45 AM MANUAL LATHE MACHINIST DTL Alanine Aminotransferase 13 7 - 55 U/L 05/09/2020 5:4 5 AM MANUAL LATHE MACHINIST DTL (ALT), S Bilirubin, Total, S <0.2 <=1.2 mg/dL 05/09/2020 5:45 AM MANUAL LATHE MACHINIST DTL Specimen Anatomical Collection Method Collection Time Receive d Time (Source) Location / / Volume Laterality Blood (Blood, 05/09/2020 4:54 AM 05/09/20 5:14 Venous) MANUAL LATHE MACHINIST AM MANUAL LATHE MACHINIST Niels Casey M.D. LAB BLOOD ADD-ON Performing Organization Address City/State/ZIP Code Phon e Number [facility] - [address] [place], [place] [address] [facility] [place] [address] [facility] [address] (ABNORMAL) CBC with Differential, Blood (05/09/2020 4:54 AM MANUAL LATHE MACHINIST) [facility] gist Method Time Signature Hemoglobin 10.5 (L) 13.2 - 05/09/2020 DTL 16.6 g/dL 5:28 AM MANUAL LATHE MACHINIST Hematocrit 32.7 (L) 38.3 - 05/09/2020 DTL 48.6 % 5:28 AM MANUAL LATHE MACHINIST Erythrocytes 3.51 (L) 4.35 - 05/09/2020 DTL 5.65 5:28 AM MANUAL LATHE MACHINIST x10(12)/L MCV 93.2 78.2 - 05/09/2020 DTL 97.9 fL 5:28 AM MANUAL LATHE MACHINIST RBC Distrib Width 14.7 (H) 11.8 - 05/09/2020 DTL 14.5 % 5:28 AM MANUAL LATHE MACHINIST Platelet Count 398 (H) 135 - 317 05/09/2020 DTL x10(9)/L 5:28 AM MANUAL LATHE MACHINIST Leukocytes 14.9 (H) 3.4 - 9.6 05/09/2020 DTL x10(9)/L 5:28 AM MANUAL LATHE MACHINIST Neutrophils 10.58 (H) 1.56 - 05/09/2020 DTL 6.45 5:28 AM MANUAL LATHE MACHINIST x10(9)/L Lymphocytes 2.96 0.95 - 05/09/2020 DTL 3.07 5:28 AM MANUAL LATHE MACHINIST x10(9)/L Monocytes 1.21 (H) 0.26 - 05/09/2020 DTL 0.81 5:28 AM MANUAL LATHE MACHINIST x10(9)/L Eosinophils 0.15 0.03 - 05/09/2020 DTL 0.48 5:28 AM MANUAL LATHE MACHINIST x10(9)/L Basophils 0.04 0.01 - 05/09/2020 DTL 0.08 5:28 AM MANUAL LATHE MACHINIST x10(9)/L Specimen Anatomical Collection Method Collection Time Receive d Time (Source) Location / / Volume Laterality Blood (Blood, 05/09/2020 4:54 AM 05/09/20 20 5:15 Venous) MANUAL LATHE MACHINIST AM MANUAL LATHE MACHINIST Niels Casey M.D. LAB BLOOD ADD-ON Performing Organization Address City/State/ZIP Code Phon e Number [facility] - [address] [place], [place] [address] [facility] [place] [address] [facility] [address] (ABNORMAL) CRP (C-Reactive Protein) (05/09/2020 4:54 AM MANUAL LATHE MACHINIST) athologist [facility] C-Reactive 43.8 (H) <=8.0 mg/L 05/09/2020 DTL Protein (CRP), 5:45 AM MANUAL LATHE MACHINIST S Specimen Anatomical Collection Method Collection Time Receive d Time (Source) Location / / Volume Laterality Blood (Blood, 05/09/2020 4:54 AM 05/09/20 20 5:14 Venous) MANUAL LATHE MACHINIST AM MANUAL LATHE MACHINIST Bebeto Ayala M.D., M.S. LAB BLOOD ADD-ON Performing Organization Address City/[facility] Phon e Number [facility] - [address] [place] [address] Laboratories[address] Ferritin (05/09/2020 4:54 AM MANUAL LATHE MACHINIST) athologist [facility] Ferritin, S 89 24 - 336 05/09/2020 DTL mcg/L 6:13 AM MANUAL LATHE MACHINIST Specimen Anatomical Collection Method Collection Time Receive d Time (Source) Location / / Volume Laterality Blood (Blood, 05/09/2020 4:54 AM 05/09/20 20 5:14 Venous) MANUAL LATHE MACHINIST AM MANUAL LATHE MACHINIST Bebeto Ayala M.D., M.S. LAB BLOOD ADD-ON Performing Organization Address City/[facility] Phon e Number [facility] - [id number] [place] [address] (ABNORMAL) D-Dimer (05/09/2020 4:54 AM MANUAL LATHE MACHINIST) athologist [facility] D-Dimer, P 1257 (H) <=500 ng/mL 05/09/2020 DTL FEU 5:53 AM MANUAL LATHE MACHINIST Comment: D-dimer concentrations increase with age . ??For DVT/PE exclusion, in addition to clinical pre-test probabi lity, age-adjusted D-dimer cut-offs are suggested for patients >50 years old. For additional information refer to the D-dimer assay i n the Laboratory Test Catalog (LTC) and/or [employer] (JOLIE) . ----ADDITIONAL INFORMATION---- D-dimer values less than or equal to 500 ng/mL fibrinogen equivalent units (FEU) may be used in co njunction with clinical pre-test probability to exclude deep vein thrombosis (DVT) and/or pulmonary emboli sm (PE). Specimen Anatomical Collection Method Collection Time Receive d Time (Source) Location / / Volume Laterality Blood (Blood, 05/09/2020 4:54 AM 05/09/20 20 5:14 Venous) MANUAL LATHE MACHINIST AM MANUAL LATHE MACHINIST Bebeto Ayala M.D., M.S. LAB BLOOD ADD-ON Performing Organization Address City/[facility] Phon e Number [facility] - [address] [place], [place] [address] [facility] [place] [address] [facility] [address] [facility] Glucose, POCT (05/08/2020 10:13 PM MANUAL LATHE MACHINIST) Analysis Performed At Patho logist Time Signature Glucose, POCT, 90 70 - 140 05/08/2020 PCLX B mg/dL 10:16 PM MANUAL LATHE MACHINIST Site Capillary 05/08/2020 PCLX 10:16 PM MANUAL LATHE MACHINIST Last Intake 3-4 hours 05/08/2020 PCLX 10:16 PM MANUAL LATHE MACHINIST Specimen Anatomical Collection Method Collection Time Receive d Time (Source) Location / / Volume Laterality Blood 05/08/2020 10:13 05/08/2020 PM MANUAL LATHE MACHINIST 10:16 PM MANUAL LATHE MACHINIST Unknown Provider LAB POCT ORDERABLES-MANUAL Performing Organization Address [facility] Phon e Number POC [facility] [address] [place] [address] [place] [address] [place] P[facility] [address] [facility] Glucose, POCT (05/08/2020 6:33 PM MANUAL LATHE MACHINIST) P athologist Signature Glucose, POCT, 94 70 - 140 05/08/2020 PCLX B mg/dL 6:45 PM MANUAL LATHE MACHINIST Specimen Anatomical Collection Method Collection Time Receive d Time (Source) Location / / Volume Laterality Blood 05/08/2020 6:33 PM 0 6:46 MANUAL LATHE MACHINIST PM MANUAL LATHE MACHINIST Unknown Provider LAB POCT ORDERABLES-MANUAL Performing Organization Address City/[facility] Phon e Number POC [facility] [address] [place] [address] [place] [address] [facility] [address] [facility] US Kidneys with Renal Artery Doppler (05/08/2020 5:47 PM MANUAL LATHE MACHINIST) Anatomical Region Laterality Modality Abdomen, Renal, Ultrasound RST LOS, Ultrasound ARZ LOS, N/A Ultrasound Ultrasound FLA LOS, Procedural Specimen (Source) Anatomical Collection Method Collection Time Re ceived Time Location / / Volume Laterality 05/08/2020 5:46 PM MANUAL LATHE MACHINIST Impressions 05/09/2020 7:51 AM MANUAL LATHE MACHINIST 1. Negative for renal artery stenosis where seen. Note that the bilateral renal arteries were segmentally visualized due to obscuring bowel gas. 2. Increased echogenicity and elevated r esistive indices in the bilateral kidneys, which can be seen with chronic renal parenchymal disease. Narrative 05/09/2020 7:51 AM MANUAL LATHE MACHINIST EXAM: US KIDNEYS WITH RENAL ARTERY DOPPLER Exam performed with color and spectral D oppler analysis. COMPARISON: CTA abdomen and pelvis 03/15. FINDINGS: Right kidney: Increased cortical echogen icity, which can be seen with chronic renal parenchymal disease. No hydronephr osis. Right renal artery: Negative for stenosi s where visualized; single vessel partially seen. The right renal artery w as partially obscured by bowel gas. Left kidney: Increased cortical echogeni city, which can be seen with chronic renal parenchymal disease. No hydronephr osis. Left renal artery: Negative for stenosis where visualized; single vessel partially seen. The left renal artery wa s partially obscured by bowel gas. Right Renal Measurements: Right renal length: 9.3 cm, which is at the lower limits of normal. Right segmental artery - upper pole RI: 0.92 (elevated) Right segmental artery - lower pole RI: 0.90 (elevated) Right renal artery origin PSV: Not well seen. Right renal artery prox PSV: 86 cm/s Right renal artery mid PSV: 56 cm/s Right renal artery distal PSV: 56 cm/s Left Renal Measurements: Left renal length: 10.7 cm Left segmental artery - upper pole RI: 0 .89. (elevated) Left segmental artery - lower pole RI: 0 .92 (elevated) Left renal artery origin PSV: 92 cm/s Left renal artery prox PSV: 89 cm/s Left renal artery mid PSV: 66 cm/s Left renal artery distal PSV: 55 cm/s Aorta: Normal caliber. Bladder: Well-distended and grossly nega tive. Procedure Note Ashvin, Alex D, M.D. - 05/09/2020Format ting of this note might be different from the original. EXAM: US KIDNEYS WITH RENAL ARTERY DOPPL ER Exam performed with color and spectral D oppler analysis. COMPARISON: CTA abdomen and pelvis 03/15. FINDINGS: Right kidney: Increased cortical echogen icity, which can be seen with chronic renal parenchymal disease. No hydronephr osis. Right renal artery: Negative for stenosi s where visualized; single vessel partially seen. The right renal artery w as partially obscured by bowel gas. Left kidney: Increased cortical echogeni city, which can be seen with chronic renal parenchymal disease. No hydronephr osis. Left renal artery: Negative for stenosis where visualized; single vessel partially seen. The left renal artery wa s partially obscured by bowel gas. Right Renal Measurements: Right renal length: 9.3 cm, which is at the lower limits of normal. Right segmental artery - upper pole RI: 0.92 (elevated) Right segmental artery - lower pole RI: 0.90 (elevated) Right renal artery origin PSV: Not well seen. Right renal artery prox PSV: 86 cm/s Right renal artery mid PSV: 56 cm/s Right renal artery distal PSV: 56 cm/s Left Renal Measurements: Left renal length: 10.7 cm Left segmental artery - upper pole RI: 0 .89. (elevated) Left segmental artery - lower pole RI: 0 .92 (elevated) Left renal artery origin PSV: 92 cm/s Left renal artery prox PSV: 89 cm/s Left renal artery mid PSV: 66 cm/s Left renal artery distal PSV: 55 cm/s Aorta: Normal caliber. Bladder: Well-distended and grossly nega tive. IMPRESSION: 1. Negative for renal artery stenosis wh ere seen. Note that the bilateral renal arteries were segmentally visualized due to obscuring bowel gas. 2. Increased echogenicity and elevated r esistive indices in the bilateral kidneys, which can be seen with chronic renal parenchymal disease. Niels ETIENNE US PROCEDURES (TTE) 2D ECHO DOPPLER COLOR (05/08/2020 4:32 PM MANUAL LATHE MACHINIST) [facility] Method Time Signature Ejection Fraction 61 MC CV EIMS LV End-Diastolic 129 MC CV EIMS Volume LV End-Systolic 51 MC CV EIMS Volume MV e' Velocity 0.07 MC CV EIMS Medial Left ventricular 44 MC CV EIMS stroke volume index Cardiac Output 8.02 MC CV EIMS Cardiac Index 4.07 MC CV EIMS LV Interventricular 8 MC CV EIMS Septal Wall Thickness LV Posterior Wall 9 MC CV EIMS Thickness TAPSE 19 MC CV EIMS RA Pressure 5 MC CV EIMS MV mean gradient 4 MC CV EIMS LA Volume Index 44 MC CV EIMS Anatomical Region Laterality Modality Echocardiography Specimen (Source) Anatomical Collection Method Collection Time Re ceived Time Location / / Volume Laterality 05/08/2020 2:52 PM MANUAL LATHE MACHINIST Impressions 05/08/2020 4:44 PM MANUAL LATHE MACHINIST Echocardiogram performed per COVID-19 protocol (COVID results pending at the time of exam). LEFT VENTRICLE: ??Normal left ventricula r chamber size. ??Normal left ventricular wall thickness. Calculated 2-D biplane volumetric left ventricular ejection fraction 61 %. ??No regional wall motion abnormalities. ??Indeterminate le ft ventricular diastolic function. ??RIGHT VENTRICLE: Normal right ventricular chamber size. ? ?Normal right ventricular systolic function. ??Unable to detect peak tricuspid regurgitation [place] for pulmonary artery systolic pressure calculation. ??However, faint Doppler si gnal are suggestive of increased right ventricular systolic pressure. ??ATRIA: ??Moderately enlarged left atrial size. ??Left atrial volume index 44 ml/m^2. ??Moderately enlarged right atri al size. ??CARDIAC VALVES: ??Trileaflet aortic valve. Sclerotic aortic valve. ??No aortic valv e regurgitation. ??Thickened mitral valve. ??Mildly calcified mitral annulus. ??Mitral valve diastolic mean Doppler gradient 4 mmHg (heart rate 91 BPM). ??Mild-moderate mitral valve regur gitation. ??Normal pulmonary valve. ??Normal pulmonary valve systolic velocities. ??Trivial pul monary valve regurgitation. ??Normal tricuspid valve. Trivial tricuspid valve regurgitation. ? ?OTHER ECHO FINDINGS: ??Normal inferior vena cava size with normal inspiratory collapse (>50%). ??Ascending aorta not well visualized. ??No abdominal aortic aneurysm. ??Normal abdominal aort a Doppler flow pattern. ??No atrial level shunt by color flow imaging. ??No intracardiac mass or thrombus, but the left atrial appendage cannot be visualized adequately with transthoracic echo to exclude thrombus in this location. ??No pericardial effusion. For the complete report, see the [employer]. Narrative 05/08/2020 4:44 PM MANUAL LATHE MACHINIST For the complete report, see the Planbox Documents. Final Impressions 1. Normal left ventricular chamber size. ??Calculated ejection fraction 61%. No regional wall motion abnormalities. 2. Normal right ventricular chamber size and systolic function. 3. Unable to detect peak tricuspid regur gitation velocity for pulmonary artery systolic pressure calculation. ??However, faint D oppler signal are suggestive of increased right ventricular systolic pressure. 4. Mildly calcified mitral annulus. ??Me an diastolic gradient 4 mmHg. 5. Normal inferior vena cava size with n ormal inspiratory collapse (>50%). 6. No pericardial effusion. Procedure Note [place] Sandoval M.D., Ph.D. - 05/08/2020 For the complete report, see the Planbox Documents. Final Impressions 1. Normal left ventricular chamber size. Calculated ejection fraction 61%. No regional wall motion abnormalities. 2. Normal right ventricular chamber size and systolic function. 3. Unable to detect peak tricuspid regur gitation velocity for pulmonary artery systolic pressure calculation. However, faint Dop pler signal are suggestive of increased right ventricular systolic pressure. 4. Mildly calcified mitral annulus. Mean diastolic gradient 4 mmHg. 5. Normal inferior vena cava size with n ormal inspiratory collapse (>50%). 6. No pericardial effusion. Findings Echocardiogram performed per COVID-19 pr otocol (COVID results pending at the time of exam). LEFT VENTRICLE: Normal left ventricular chamber size. Normal left ventricular wall thickness. Calculated 2-D biplane volumetric left ventricular ejection fraction 61 %. No regional wall motion abnormalities. Indeterminate left ventricular diastolic function. RIGHT VENTRICLE: Normal right ventricular chamber size. N ormal right ventricular systolic function. Unable to detect peak tricuspid regurgitation [place] for pulmonary artery systolic pressure calculation. However, faint Doppler sign al are suggestive of increased right ventricular systolic pressure. ATRIA: Moderately enl arged left atrial size. Left atrial volume index 44 ml/m^2. Moderately enlarged right atrial size. CARDIAC VALVES: Trileaflet aortic valve. Sclerotic aortic valve. No aortic valve regurgitation. Thickened mitral valve. Mildly calcified mitral annulus. Mitral valve d iastolic mean Doppler gradient 4 mmHg (heart rate 91 BPM). Mild-moderate mitral valve regurgi tation. Normal pulmonary valve. Normal pulmonary valve systolic velocities. Trivial pulmo nary valve regurgitation. Normal tricuspid valve. Trivial tricuspid valve regurgitation. O THER ECHO FINDINGS: Normal inferior vena cava size with normal inspiratory collapse (>50%). Ascending aorta not well visualized. No abdominal aortic aneurysm. Normal abdominal aorta Doppler flow pattern. No atrial level shunt by color flow imaging. No intracardiac mass or th rombus, but the left atrial appendage cannot be visualized adequately with transthoracic echo to exclude thrombus in this location. No pericardial effusion. For the complete report, see the Order-L evel Documents. Niels Casey M.D. CV ECHO PROCEDURES Renin Activity (05/08/2020 3:10 PM MANUAL LATHE MACHINIST) athologist Signature Renin Activity, <0.6 ng/mL/h 05/12/2020 [facility] P 2:55 PM MANUAL LATHE MACHINIST Comment: ----REFERENCE VALUE---- (Peripheral vein specimen) Na-deplete, upright: ??Mean: 5.9 ??Range: 2.9-10.8 Na-replete, upright: ??Mean: 1.0 ??Range: < or =0.6-3.0 ----ADDITIONAL INFORMATION---- Testing performed by Liquid Chromatograp hy-Tandem Mass Spectrometry (LC-MS/MS). This test was developed and its performa nce characteristics determined by [facility] in a manner consistent with CLIA requirements. This test has not been cleared or approved by the [place] and Drug Administration. Specimen Anatomical Collection Method Collection Time Receive d Time (Source) Location / / Volume Laterality Blood (Blood, 05/08/2020 3:10 PM 05/10/20 20 Venous) MANUAL LATHE MACHINIST 10:34 AM MANUAL LATHE MACHINIST Niels Casey M.D. LAB BLOOD NON ADD-ON Performing Organization Address City/State/ZIP Code Phon e Number [facility] [address] KOFFI Paz MD [address] [place] [address] CENTER [facility] [place] [address] Laboratory Medicine and Pathology [address] RAIN Aldosterone (05/08/2020 3:10 PM MANUAL LATHE MACHINIST) P athologist Signature Aldosterone, P 4.3 <=21 ng/dL 05/13/2020 [facility] 9:34 AM MANUAL LATHE MACHINIST Comment: ----ADDITIONAL INFORMATION---- Reference range for patients 11 years an d older is based on upright A.M. collection from subjects without sodium restrictions. This test was developed and its performa nce characteristics determined by [facility] in a manner consistent with CLIA requirements. This test has not been cleared or approved by the [place] and Drug Administration. Specimen Anatomical Collection Method Collection Time Receive d Time (Source) Location / / Volume Laterality Blood (Blood, 05/08/2020 3:10 PM 05/10/20 20 Venous) MANUAL LATHE MACHINIST 12:29 PM MANUAL LATHE MACHINIST Niels Casey M.D. LAB BLOOD NON ADD-ON Performing Organization Address City/State/ZIP Code Phon e Number [facility] [address] [place], [place] [address] SUPPORT [facility] [place] [address] Laboratory Medicine and Pathology [address] RAIN Influenza A/B, SARS CoV-2, PCR, Rapid, Varies (05/08/2020 2:34 PM MANUAL LATHE MACHINIST) athologist Signature Influenza A, CANCELED 06/09/2020 [facility] PCR, Rapid, V 12:21 PM MANUAL LATHE MACHINIST Comment: Result canceled by the ancillar y. Influenza B, PCR, Rapid, V CANCELED 06/09/2020 12 :21 PM MANUAL LATHE MACHINIST [facility] Comment: Result canceled by the ancillar y. SARS CoV-2, PCR, Rapid, V CANCELED Undetected 06/09/2020 12 :21 PM MANUAL LATHE MACHINIST [facility] Comment: REVISED RESULTS ----ADDITIONAL INFORMATION---- Testing was performed using the Karina [employer] RS-CoV-2 and Influenza A/B Reagent assay from [employer], which has received Emergency Use Authori zation(EUA) by the U.S. Food and Drug Administration . Fact sheets for this Emergency Use Autho rization (EUA) assay can be found at the following link s: For Healthcare Providers: https://www.fda.gov/media/414427/downloa d For Patients: https://www.fda.gov/media/458610/downloa d ----PREVIOUSLY REPORTED ---- Undetected, Flagged as: Normal (Reported 05/08/2020 15:03) Infl A/B, SARS CoV-2, PCR, Source CANCELED 2020 12:21 PM MANUAL LATHE MACHINIST [facility] Comment: REVISED RESULTS ----PREVIOUSLY REPORTED ---- Swab, Nasopharynx, Flagged as: Normal (Reported 05/08/2020 14:34) Specimen Anatomical Collection Method Collection Time Receive d Time (Source) Location / / Volume Laterality Varies 05/08/2020 2:34 PM 0 2:34 MANUAL LATHE MACHINIST PM MANUAL LATHE MACHINIST Narrative [facility] - [facility] - 06/09/2020 12:21 PM MANUAL LATHE MACHINIST Influ A/B, SARS CoV-2, PCR, Rapid,V was cancelled on 06/09/2020 at 12:21; [id number] Bebeto Ayala M.D., M.S. LAB MICROBIOLOGY - GENERAL ORDERABLES Performing Organization Address City/[facility] Phon e Number [facility] - [address] [place], [place] [address] [place] [address] [facility] [address] [facility] (ABNORMAL) Glucose, POCT (05/08/2020 1:01 PM MANUAL LATHE MACHINIST) Analysis Performed At Patho logist Time Signature Glucose, POCT, 252 (H) 70 - 140 05/08/2020 [facility] B mg/dL 1:18 PM MANUAL LATHE MACHINIST Site Capillary 05/08/2020 [facility] 1:18 PM MANUAL LATHE MACHINIST Last Intake > 4 hours 05/08/2020 [facility] 1:18 PM MANUAL LATHE MACHINIST Specimen Anatomical Collection Method Collection Time Receive d Time (Source) Location / / Volume Laterality Blood 05/08/2020 1:01 PM 0 1:18 MANUAL LATHE MACHINIST PM MANUAL LATHE MACHINIST Unknown Provider LAB POCT ORDERABLES-MANUAL Performing Organization Address City/State/[facility] Code Phon e Number POC [facility] [address] [place] [address] [place] [address] [place] [facility] [address] [facility] Interpretation of Outside CT Chest (05/08/2020 12:45 PM MANUAL LATHE MACHINIST) Anatomical Region Laterality Modality Chest, Thoracic RST LOS, Thoracic ARZ LOS, Thoracic N/A Computed Tomography FLA LOS, Other, Body Specimen (Source) Anatomical Collection Method Collection Time Re ceived Time Location / / Volume Laterality 05/08/2020 1:05 PM MANUAL LATHE MACHINIST Impressions 05/08/2020 1:13 PM MANUAL LATHE MACHINIST 1. Findings consistent with volume overload/congestive failure. 2. Multifocal groundglass opacities most notable in the right apex could also be related to edema, but the distribution i s not typical for that. These are most suggestive of a superimposed infectious/ inflammatory process. COVID-19 pneumonia is possible, but this is not a specific appearance. 3. Mediastinal lymphadenopathy, indeterm inate. Narrative 05/08/2020 1:13 PM MANUAL LATHE MACHINIST EXAM: ??INTERPRETATION OF OUTSIDE CT CHEST. Outside [...] Mediastinal lymphadenopathy, indeterm inate. Niels Casey M.D. IMG CT PROCEDURES (ABNORMAL) CBC with Differential, Blood (05/08/2020 12:16 PM MANUAL LATHE MACHINIST) [facility] Method Time Signature Hemoglobin 10.3 (L) 13.2 - 05/08/2020 DTL 16.6 g/dL 12:42 PM MANUAL LATHE MACHINIST Hematocrit 31.9 (L) 38.3 - 05/08/2020 DTL 48.6 % 12:42 PM MANUAL LATHE MACHINIST Erythrocytes 3.40 (L) 4.35 - 05/08/2020 DTL 5.65 12:42 PM MANUAL LATHE MACHINIST x10(12)/L MCV 93.8 78.2 - 05/08/2020 DTL 97.9 fL 12:42 PM MANUAL LATHE MACHINIST RBC Distrib Width 14.5 11.8 - 05/08/2020 DTL 14.5 % 12:42 PM MANUAL LATHE MACHINIST Platelet Count 363 (H) 135 - 317 05/08/2020 DTL x10(9)/L 12:42 PM MANUAL LATHE MACHINIST Leukocytes 11.4 (H) 3.4 - 9.6 05/08/2020 DTL x10(9)/L 12:42 PM MANUAL LATHE MACHINIST Neutrophils 10.47 (H) 1.56 - 05/08/2020 DTL 6.45 12:42 PM MANUAL LATHE MACHINIST x10(9)/L Lymphocytes 0.66 (L) 0.95 - 05/08/2020 DTL 3.07 12:42 PM MANUAL LATHE MACHINIST x10(9)/L Monocytes 0.21 (L) 0.26 - 05/08/2020 DTL 0.81 12:42 PM MANUAL LATHE MACHINIST x10(9)/L Eosinophils <0.03 0.03 - 05/08/2020 DTL 0.48 12:42 PM MANUAL LATHE MACHINIST x10(9)/L Basophils <0.03 0.01 - 05/08/2020 DTL 0.08 12:42 PM MANUAL LATHE MACHINIST x10(9)/L Specimen Anatomical Collection Method Collection Time Receive d Time (Source) Location / / Volume Laterality Blood (Blood, 05/08/2020 12:16 05/08/2020 Venous) PM MANUAL LATHE MACHINIST 12:34 PM MANUAL LATHE MACHINIST Bebeto Ayala M.D., M.S. LAB BLOOD ADD-ON Performing Organization Address City/State/ZIP Code Phon e Number [facility] - [address] [place], [place] [address] [facility] [place] [place] [address] [facility] [address] (ABNORMAL) Basic Metabolic Panel (05/08/2020 12:16 PM MANUAL LATHE MACHINIST) Analysis Performed At Patho logist Time Signature Potassium, S 4.5 3.6 - 5.2 05/08/2020 DTL mmol/L 1:00 PM MANUAL LATHE MACHINIST Sodium, S 138 135 - 145 05/08/2020 DTL mmol/L 1:00 PM MANUAL LATHE MACHINIST Chloride, S 103 98 - 107 05/08/2020 DTL mmol/L 1:00 PM MANUAL LATHE MACHINIST Bicarbonate, S 22 22 - 29 05/08/2020 DTL mmol/L 1:00 PM MANUAL LATHE MACHINIST Anion Gap 13 7 - 15 05/08/2020 DTL 1:00 PM MANUAL LATHE MACHINIST BUN (Blood Urea 28 (H) 8 - 24 05/08/2020 DTL Nitrogen), S mg/dL 1:00 PM MANUAL LATHE MACHINIST Creatinine 2.25 (H) 0.74 - 05/08/2020 DTL 1.35 mg/dL 1:00 PM MANUAL LATHE MACHINIST eGFR-Non 29 (L) >=60 05/08/2020 DTL Black/ mL/min/BSA 1:00 PM MANUAL LATHE MACHINIST [place] Comment: ----ADDITIONAL INFORMATION---- Estimated GFR calculated using the 2009 CKD_EPI creatinine equation. eGFR-Black/ 33 (L) >=60 mL/min/BSA 2019 1:00 PM MANUAL LATHE MACHINIST DTL Comment: ----ADDITIONAL INFORMATION---- Estimated GFR calculated using the 2009 CKD_EPI creatinine equation. Calcium, Total, S 7.7 (L) 8.8 - 10.2 mg/dL 05/08/2020 1:00 PM MANUAL LATHE MACHINIST DTL Glucose, S 278 (H) 70 - 140 mg/dL 05/08/2020 1:00 PM MANUAL LATHE MACHINIST D TL Specimen Anatomical Collection Method Collection Time Receive d Time (Source) Location / / Volume Laterality Blood (Blood, 05/08/2020 12:16 05/08/2020 Venous) PM MANUAL LATHE MACHINIST 12:34 PM MANUAL LATHE MACHINIST Bebeto Ayala M.D., M.S. LAB BLOOD ADD-ON Performing Organization Address City/State/ZIP Code Phon e Number [facility] - [address] [place], [place] [address] [facility] [place] [address] [facility] [address] documented in this encounter Visit Diagnoses Diagnosis Acute Respiratory Failure With Hypoxia ( HCC) - Primary Pneumonia Community Acquired Acute Respiratory Failure With Hypoxia ( HCC) Hypertension And Chronic Kidney Disease Stage 1 To 4 Diabetes Mellitus Type 2 With Other Circ ulatory Complication Hyperglycemic (HCC) Hypertension NOS Pneumonia Community Acquired documented in this encounter Administered Medications Inactive Administered Medications - up to 3 most recent administrations Medication Order MAR Action Action Date Dose Rate Site amLODIPine tablet 10 mg (NORVASC) Given 05/10/2020 8:04 AM MANUAL LATHE MACHINIST 10 mg 10 mg, oral, Daily, First dose on Tue05/09/20 at 0900 Given 05/09/2020 9:16 AM MANUAL LATHE MACHINIST [address] tablet 325 mg Given 05/09/2020 5:29 PM MANUAL LATHE MACHINIST 325 mg 325 mg, oral, Every evening, First dose on Tue05/08/20 at 1800, Swallow whole. Do NOT crush, chew, or split tablet. Given 05/08/2020 6:47 PM MANUAL LATHE MACHINIST 325 mg atorvastatin tablet 20 mg (LIPITOR) Given 05/09/2020 9:23 PM MANUAL LATHE MACHINIST 20 mg 20 mg, oral, Daily at bedtime, First dose on Tue05/08/20 at 2100 Given 05/08/2020 8:29 PM MANUAL LATHE MACHINIST 20 mg carvediloL tablet 25 mg (COREG) Given 05/10/2020 8:04 AM MANUAL LATHE MACHINIST 25 mg 25 mg, oral, 2 times daily with meals, First dose on Tue05/09/20 at 0800 Given 05/09/2020 4:52 PM MANUAL LATHE MACHINIST 25 mg Given 05/09/2020 7:44 AM MANUAL LATHE MACHINIST 25 mg cefTRIAXone in dextrose (iso-osm) IVPB New Bag 05/08/2020 1:25 PM MANUAL LATHE MACHINIST 1 g 200 mL/hr 1 g (ROCEPHIN) 1 g, intravenous, at 200 mL/hr, Administer over 15 Minutes, Every 24 hours, First dose on Linda 05/08/20 at 1230, premix bag, Drug Monitoring Program: Pharmacist to adjust medication dosing based on indication and drug clearance factors., Indications: Chronic antibiotic suppression, Respiratory tract infection, healthcare associated chlorthalidone tablet 12.5 mg (HYGROTON) Given 05/09/2020 2:47 PM MANUAL LATHE MACHINIST 12.5 mg 12.5 mg, oral, Daily, First dose on Tue05/09/20 at 1430 chlorthalidone tablet 12.5 mg (HYGROTON) Given 05/09/2020 7:36 PM MANUAL LATHE MACHINIST 12.5 mg 12.5 mg, oral, Once, On Tue05/09/20 at 1900, For 1 dose chlorthalidone tablet 25 mg (HYGROTON) Given 05/10/2020 8:04 AM MANUAL LATHE MACHINIST 25 mg 25 mg, oral, Daily, First dose (after last modification) on 05/10/20 at 0730 cloNIDine tablet 0.1 mg (CATAPRES) Given 05/08/2020 3:14 PM MANUAL LATHE MACHINIST 0.1 mg 0.1 mg, oral, 2 times daily, First dose on Linda 05/08/20 at 1445 dextrose 40 % gel 15 g (GLUTOSE) 15 g, oral, As needed, low blood sugar, For glucose 51-70 mg/dL, Starting on Tue05/09/20 at 0700, If patient is conscious and able to swallow safely and has a fuctioning gastrointestinal tract or on Acarbose (Prec ose??) or Miglitol (Glyset??). May use tablets or gel. dextrose 50 % injection 12.5 g 12.5 g, intravenous, As needed, low bloo d sugar, For glucose 51-70 mg/dL, Starting on Tue05/09/20 at 0700, If the patient has intravenous access available, is not able to take oral feeding safely, does not have a func tioning gastrointestinal tract or feeding tube, or is NPO, administer D50W intr avenously. dextrose 50 % injection 25 g 25 g, intravenous, As needed, low blood sugar, For glu cose less than 50 mg/dL, Starting on Tue05/09/20 at 0700, If int ravenous access is available, administer D50W intravenously doxepin capsule 10 mg (SINEquan) Given 05/09/2020 9:23 PM MANUAL LATHE MACHINIST 10 mg 10 mg, oral, Daily at bedtime, First dose on Linda 05/08/20 at 2100 Given 05/08/2020 8:29 PM MANUAL LATHE MACHINIST [address] capsule 60 mg (CYMBALTA) Given 05/09/2020 9:23 PM MANUAL LATHE MACHINIST 60 mg 60 mg, oral, Daily, First dose on Linda 05/08/20 at 2100, See tube feeding guidelines for tube feeding administration instructions. Given 05/08/2020 8:29 PM MANUAL LATHE MACHINIST 60 mg glucagon injection 1 mg (GlucaGen) 1 mg, subcutaneous, Once as needed, low blood sugar, F or glucose 51-70 mg/dL, Starting on Tue05/09/20 at 0700, For 1 dose, If patient is not able to take oral feeding safely, does not have a function ing gastrointestinal tract or feeding tube, or is NPO. Following treatment with Gluc agon, a source of glucose should be started to maintain blood glucose level (e.g., patient should eat oral carbohydrates if allowed or perscriber should be contacte d to consider starting fluids containing dextrose) Glucagon may only be given once per hypoglyc emia episode. glucagon injection 1 mg (GlucaGen) 1 mg, subcutaneous, Once as needed, low blood sugar, F or glucose less than 50 mg/dL, Starting on Tue05/09/20 at 0700, For 1 dose, I f intravenous access not available and patient is not able to take oral feeding safely, does not have a functioning gastrointestinal tract or feeding tube. glucose chewable tablet 16 g 16 g, oral, As needed, low blood sugar, For glucose 51-70 mg/dL, Starting on Tue05/09/20 at 0700, If patient is conscious and able to swallow safely and has a functioning gastrointestinal tract or on Acarbose (Pre cose??) or Miglitol (Glyset??). Administer 4 tablets to total 16 grams. Ma y use tablets or gel. heparin (porcine) Given 05/10/2020 6:20 AM MANUAL LATHE MACHINIST 5,000 Units Right Lower injection 5,000 Units Abdomen 5,000 Units, subcutaneous, Every 8 hours scheduled, First dose on Tue05/08/20 at 1145 Given 05/09/2020 9:23 PM MANUAL LATHE MACHINIST 5,000 Units Left Lower Abdomen Given 05/09/2020 2:47 PM MANUAL LATHE MACHINIST 5,000 Units Right Lower Abdomen insulin aspart U-100 Given 05/10/2020 12:02 PM MANUAL LATHE MACHINIST 6 Units Left Upper Abdomen injection 0-13 Units (NovoLOG FlexPen) 0-13 Units, subcutaneous, 3 times daily, First dose on Tue05/08/20 at 1200, Insulin Scale: Moderate Correction Scale, 140 - 179: 2 units, 180 - 219: 4 units, 220 - 259: 6 units, 260 - 299: 8 units, 300 - 339: 10 units, 340 - 379: 12 units, 380 - 399: 13 units, Greater than 399: Call service writing Insulin orders Given 05/09/2020 5:26 PM MANUAL LATHE MACHINIST 2 Units Right Lower Abdomen Given 05/08/2020 1:41 PM MANUAL LATHE MACHINIST 6 Units Left Lower Abdomen insulin aspart U-100 Given 05/09/2020 9:18 AM MANUAL LATHE MACHINIST 6 Units Left Lower Abdomen injection 6 Units (NovoLOG FlexPen) 6 Units, subcutaneous, Daily with breakfast, First dose (after last modification) on Tue05/09/20 at 0800 insulin aspart U-100 Given 05/08/2020 2:21 PM MANUAL LATHE MACHINIST 8 Units Right Lower Abdomen injection 8 Units (NovoLOG FlexPen) 8 Units, subcutaneous, Daily with lunch, First dose on Tue05/08/20 at 1200 insulin aspart U-100 Given 05/08/2020 6:42 PM MANUAL LATHE MACHINIST 8 Units Right Lower Abdomen injection 8 Units (NovoLOG FlexPen) 8 Units, subcutaneous, Daily with dinner, First dose on Tue05/08/20 at 1700 insulin glargine injection Given 05/09/2020 9:23 PM MANUAL LATHE MACHINIST 22 Units Left Upper Abdomen 22 Units 22 Units, subcutaneous, Daily at bedtime, First dose (after last modification) on Tue05/09/20 at 2100 insulin glargine injection Given 05/08/2020 8:31 PM MANUAL LATHE MACHINIST 30 Units Left Upper Abdomen 30 Units 30 Units, subcutaneous, Daily at bedtime, First dose on Tue05/08/20 at 2100 metoprolol succinate 24 hr tablet 200 mg Given 05/08/2020 1:03 P M MANUAL LATHE MACHINIST 200 mg (TOPROL-XL) 200 mg, oral, Daily, First dose on Linda 05/08/20 at 1215, Do NOT crush or chew. Tablet may be split on score if needed. metoprolol tartrate tablet 50 mg (LOPRES SOR) Given 05/09/2020 11:44 PM MANUAL LATHE MACHINIST 50 mg 50 mg, oral, Once, On Tue05/09/20 at 2330, For 1 dose naloxone injection 0.2 mg (NARCAN) 0.2 mg, intravenous, As needed, respirat ory depression, Starting on Linda 05/08/20 at 1136, For RASS Score -4 or less, respiratory rate of l ess than 8 breaths/min. Notify provider/service and rapid response team (if av ailable at institution). niCARdipine 0.2 mg/mL in New Bag 05/08/2020 4:09 PM 5 mg/hr 25 mL/hr Right Antecubital NaCl (iso-osm) 200 mL MANUAL LATHE MACHINIST infusion (CARDENE) 5-15 mg/hr (25-75 mL/hr), intravenous, Continuous, Starting on Linda 05/08/20 at 1445, Premix ba mg in 200 mL. Protect from light., Initiate at: 5 mg/hr, Titrate at: 2.5 mg/hr every 15 min., Goal: Other, Goal: SBP<180 NIFEdipine XL 24 hr tablet 30 mg (PROCARDIA Given 05/08/2020 2:2 6 PM MANUAL LATHE MACHINIST 30 mg XL) 30 mg, oral, Once, On Linda 05/08/20 at 1430, For 1 dose, Swallow whole. Do NOT crush, chew, or split tablet. nortriptyline capsule 100 mg (PAMELOR) Given 05/09/2020 9:23 PM MANUAL LATHE MACHINIST 100 mg 100 mg, oral, Daily at bedtime, First dose on Linda 05/08/20 at 2100 Given 05/08/2020 8:29 PM MANUAL LATHE MACHINIST 100 mg oxyCODONE IR tablet 10 mg (ROXICODONE) Given 05/09/2020 4:55 PM MANUAL LATHE MACHINIST 10 mg 10 mg, oral, Every 4 hours PRN, moderate pain or score 4-6 of 10, severe pain or score 7-10 of 10, Starting on Linda 05/08/20 at 1136 Given 05/08/2020 4:49 PM MANUAL LATHE MACHINIST [address] tablet 40 mg (PROTONIX) Given 05/10/2020 6:20 AM MANUAL LATHE MACHINIST 40 mg 40 mg, oral, Daily, First dose on Tue05/09/20 at 0700, Swallow whole. Do NOT crush, chew, or split tablet. Given 05/09/2020 6:20 AM MANUAL LATHE MACHINIST 40 mg pramipexole tablet 0.5 mg (MIRAPEX) Given 05/09/2020 9:23 PM MANUAL LATHE MACHINIST 0.5 mg 0.5 mg, oral, Daily at bedtime, First dose on Tue05/08/20 at 2100 Given 05/08/2020 8:30 PM MANUAL LATHE MACHINIST 0.5 mg sulfur hexafluoride microspheres injection Given 05/08/2020 4:00 PM MANUAL LATHE MACHINIST 2 mL (LUMASON) intravenous, As needed, contrast, Starting on Tue05/08/20 at 1604, See protocol. Reconstitute each 25 mg vial with 5 mL NS. documented in this encounter Active and Recently Administered Medications Times are shown in MANUAL LATHE MACHINIST. Scheduled Medication Order 05/08/2020 05/09/2020 05/10/2020 amLODIPine tablet 10 mg (NORVASC) 0916 (Given - Provider: Marylou Hopkins R.N.) 0804 (Given - Provider: Marcia Moon R.N.) 10 mg, oral, Daily, First dose on Tue05/09/[address] tablet 325 mg 184 (Given - Provider: Rosa Thurman R.N., C.M.S.R.N.) 172 (Given - Provider: Stef Thurman R.N., C.M.S .R.N.) 325 mg, oral, Every evening, First dose on Tue05/08/20 at 1800, Swallow whole. Do NOT crush, chew, or split tablet. atorvastatin tablet 20 mg (LIPITOR) 2028 (Given - Prov ider: Stef Thurman R.N., C.M.S.R.N.) 2122 (Given - Provider: Stef Thurman R.N., C.M.S .R.N.) 20 mg, oral, Daily at bedtime, First dose on Tue05/08/20 at 210 0 carvediloL tablet 25 mg (COREG) 0744 (Gi nelson - Provider: Marylou Hopkins R.N.)1652 (Given - Provider: Stef Thurman R.N., C.M.S.R.N.) 0804 (Given - Provider: Marcia Moon R.N.) 25 mg, oral, 2 times daily with meals, First dose on Tue 0 at 0800 cefTRIAXone in dextrose (iso-osm) IVPB 1 g (ROCEPHIN) (CANCELED) 1325 (New Bag - Provider: Marylou Hopkins R.N.) 1 g, intravenous, at 200 mL/hr, Administ er over 15 Minutes, Every 24 hours, First dose on Linda 05/08/20 at 1230, premix bag, Drug Monitoring Program: Pharmacist to adjust medication dosing based on indic ation and drug clearance factors., Indic ations: Chronic antibiotic suppression, Respiratory tract infection, healthcare associated chlorthalidone tablet 12.5 mg (HYGROTON) (CANCELED) 1447 (Given - Provider: Marylou Hopkins R.N.) 12.5 mg, oral, Daily, First dose on Tue05/09/20 at 1430 chlorthalidone tablet 12.5 mg (HYGROTON) (COMPLETED) 1936 (Given - Provider: Stef Thurman R.N., C.M.S.R.N.) 12.5 mg, oral, Once, On Tue05/09/20 at 1900, For 1 dose chlorthalidone tablet 25 mg (HYGROTON) 0804 (Given - Provider: Marcia Moon RJerad) 25 mg, oral, Daily, First dose (after la st modification) on 05/10/20 at 0730 cloNIDine tablet 0.1 mg (CATAPRES) (CANCELED) 1514 (Gi nelson - Provider: Marylou Hopkins R.N.)1553 (Held by provider - Provider: Niels Casey M.D. - Comment: Revision of home regimen)2100 (Dose Auto Held - Provider: Niels Casey M.D.) 0900 (Dose Auto Held - Provider: Rose Casey M.D.)0908 (Unheld by provider - Provider: Niels Casey M.D.) 0.1 mg, oral, 2 times daily, First dose on Tue05/08/20 at 1445 doxepin capsule 10 mg (SINEquan) 2028 (Given - Provide r: Stef Thurman R.N., C.M.S.R.N.) 2122 (Given - Provider: Stef Thurman R.N., C.M.S .R.N.) 10 mg, oral, Daily at bedtime, First dose on Tue05/08/20 at [address] capsule 60 mg (CYMBALTA) 2028 (Given - P rovider: Stef Thurman R.N., C.M.S.R.N.) 2122 (Given - Provider: Stef garibay R.N., C.M.S.R.N.) 60 mg, oral, Daily, First dose on Tue at 2100, See tube feeding guidelines for tube feeding administration instructions. heparin (porcine) injection 5,000 Units 1304 (Given - Provider: Marylou Hopkins R.N.)2211 (Given - Provider: Stef Thurman R.N., C.M.S.R.N.) 0620 (Given - Provider: Julia Spain RFeiNFei)1447 (Given - Provider: Marylou Hopkins R.N.)2123 (Given - Provider: Stef Thurman R.N., C.M.S.R.N.) 0620 (Given - Provider: Julia Spain RJerad)1336 (Not Given - Provider: Marcia Moon R.N. - Reason: Patient/family refused - Comment: patient discharging) 5,000 Units, subcutaneous, Every 8 hours scheduled, First dose on Tue05/08/20 at 1145 insulin aspart U-100 injection 0-13 Units (NovoLOG Fle xPen) 1341 (Given - Provider: Marylou Hopkins R.N.)1835 (Not Given - Provider: Stef Thurman R.N., C.M.S.R.N. - Reason: Order parameters not met) 0902 (Not Given - Provider: Marylou Hopkins R.N. - Reason: Order parameters not met)1345 (Not Given - Provider: Marylou Hopkins R.N. - Reason: Order parameters not met)1726 (Given - Provider: Stef Thurman R.N., C.M.S.R.N.) 0805 (Not Given - Provider: Marcia Moon R.N. - Reason: Order parameters not met)1202 (Given - Provider: Marcia Moon R.N.) 0-13 Units, subcutaneous, 3 times daily, First dose on Tue05/08/20 at 1200, Insulin Scale: Moderate Correction Scale, 140 - 179: 2 units, 180 - 219: 4 units, 220 - 259: 6 units, 260 - 299: 8 units, 300 - 339: 10 units, 340 - 379: 12 units, 3 80 - 399: 13 units, Greater than 399: Call service writing Insulin orders insulin aspart U-100 injection 6 Units (NovoLOG FlexPen) (CA NCELED) 0918 (Given - Provider: Marylou Hopkins R.N.) 6 Units, subcutaneous, Daily with breakf ast, First dose (after last modification) on Tue05/09/20 at 0800 insulin aspart U-100 injection 8 Units (NovoLOG FlexPe n) (CANCELED) 1421 (Given - Provider: Nayeli Chavira RFeiNFei) 8 Units, subcutaneous, Daily with lunch, First dose on 05/08 at 1200 insulin aspart U-100 injection 8 Units (NovoLOG FlexPe n) (CANCELED) 184 (Given - Provider: Stef Thurman R.N., C.M.S.R.N.) 8 Units, subcutaneous, Daily with dinner, First dose on 04/16 at 1700 insulin glargine injection 22 Units 2122 (Given - Provider: Stef Thurman R.N., C.M.S.R.N.) 22 Units, subcutaneous, Daily at bedtime , First dose (after last modification) on Tue05/09/20 at 2100 insulin glargine injection 30 Units (CANCELED) 2030 (Sophie iven - Provider: Stef Thurman R.N., C.M.S.R.N.) 30 Units, subcutaneous, Daily at bedtime, First dose on 04/16 at 2100 metoprolol succinate 24 hr tablet 200 mg (TOPROL-XL) ( CANCELED) 1303 (Given - Provider: Marylou Hopkins R.N.) 200 mg, oral, Daily, First dose on Linda 07/09/19 at 1215, Do NOT crush or chew. Tablet may be split on score if needed. metoprolol tartrate tablet 50 mg (LOPRESSOR) (COMPLETED) 2344 (Given - Provider: Julia Spain RJerad) 50 mg, oral, Once, On Tue05/09/20 at 2330, For 1 dose nicotine 21 mg/24 hr 1 patch (NICODERM CQ) 1305 (Not G iven - Provider: Marylou Hopkins R.N. - Reason: Patient/family refused - Comment: Patches make him itch) 0903 (Not Given - Provider: Marylou Hopkins RJerad - Reason: Patient/family refused) 0805 (Not Given - Provider: Marcia day RFeiNFei - Reason: Patient/family refused) 1 patch, transdermal, Administer over 24 Hours, Daily, First dose on Linda 05/08/20 at 1145 NIFEdipine XL 24 hr tablet 30 mg (PROCARDIA XL) (COMPL ETED) 1426 (Given - Provider: Nayeli Chavira RJerad) 30 mg, oral, Once, On Tue05/08/20 at 14 30, For 1 dose, Swallow whole. Do NOT crush, chew, or split tablet. nortriptyline capsule 100 mg (PAMELOR) 2028 (Given - P rovider: Stef Thurman R.N., C.M.S.R.N.) 2122 (Given - Provider: Stef garibay R.N., C.M.S.R.N.) 100 mg, oral, Daily at bedtime, First dose on Tue05/08/20 at [address] tablet 40 mg (PROTONIX) 0620 (Given - Provider: Julia Spain RFeiNFei) 0620 (Given - Provider: Julia vásquez R.N.) 40 mg, oral, Daily, First dose on Tue at 0700, Swallow whole. Do NOT crush, chew, or split tablet. pramipexole tablet 0.5 mg (MIRAPEX) 2029 (Given - Prov ider: Stef Thurman R.N., C.M.S.R.N.) 2122 (Given - Provider: Stef Thurman R.N., C.M.S .R.N.) 0.5 mg, oral, Daily at bedtime, First dose on Tue05/08/20 at 21 00 Continuous Medication Order 05/08/2020 05/09/2020 05/10/2020 niCARdipine 0.2 mg/mL in NaCl (iso-osm) 200 mL infusio n (CARDENE) (CANCELED) 1609 (New Bag - Provider: Stef Thurman R.N., C.M.S.R.N.)1640 (Stopped - Provider: Stef Thurman R.N., C.M.S.R.N.) 5-15 mg/hr (25-75 mL/hr), intravenous, C ontinuous, Starting on Tue05/08/20 at 1445, Premix ba mg in 200 mL. Protect from light., Initiate at: 5 mg/hr, Titrate at: 2.5 mg/hr every 15 min., Goal: Other, Goal: SBP<180 PRN Medication Order 05/08/2020 05/09/2020 05/10/2020 calcium carbonate chewable tablet 400 mg of calcium (TUMS) 400 mg of calcium, oral, Every 2 hour CA N, heartburn, indigestion, Starting Tue05/08/20 at 1131, Doses listed are in mg of elemental calcium. Take with food. 500 mg calcium carbonate contains 200 mg of elemental calcium. dextrose 40 % gel 15 g (GLUTOSE) 15 g, oral, As needed, low blood sugar, For glucose 51-70 mg/dL, Starting on Tue05/09/20 at 0700, If patient is conscious and able to swallow safely and has a fuctioning gastrointestinal tract or on Ac arbose (Precose??) or Miglitol (Glyset??). May use tablets or ge l. dextrose 50 % injection 12.5 g 12.5 g, intravenous, As needed, low bloo d sugar, For glucose 51-70 mg/dL, Starting on Tue05/09/20 at 0700, If the patient has intravenous access available, is not able to take oral feeding safely, does not have a functioning gastrointestinal tract or feeding tube, or is NPO, administer D50W intravenously. dextrose 50 % injection 25 g 25 g, intravenous, As needed, low blood sugar, For glucose less than 50 mg/dL, Starting on Tue05/09/20 at 0700, If intravenous access is available, administer D50W intravenously glucagon injection 1 mg (GlucaGen) 1 mg, subcutaneous, Once as needed, low blood sugar, For glucose 51-70 mg/dL, Starting on Tue05/09/20 at 0700, For 1 dose, If patient is not able to take oral feeding safely, does not have a functionin g gastrointestinal tract or feeding tube , or is NPO. Following treatment with Glucagon, a source of glucose should be started to maintain blood glucose level (e.g., patient should eat oral carbohydrates if allowed or perscriber should be cont acted to consider starting fluids containing dextrose) Glucagon may only be given once per hypoglycemia episode. glucagon injection 1 mg (GlucaGen) 1 mg, subcutaneous, Once as needed, low blood sugar, For glucose less than 50 mg/dL, Starting on Tue05/09/20 at 0700, For 1 dose, If intravenous access not available and patient is not able to take ora l feeding safely, does not have a functi oning gastrointestinal tract or feeding tube. glucose chewable tablet 16 g 16 g, oral, As needed, low blood sugar, For glucose 51-70 mg/dL, Starting on Tue05/09/20 at 0700, If patient is conscious and able to swallow safely and has a functioning gastrointestinal tract or on A carbose (Precose??) or Miglitol (Glyset? ?). Administer 4 tablets to total 16 grams. May use tablets or gel. naloxone injection 0.2 mg (NARCAN) 0.2 mg, intravenous, As needed, respirat ory depression, Starting on Linda 05/08/20 at 1136, For RASS Score -4 or less, respiratory rate of less than 8 breaths/min. Notify provider/service and rapid response team (if available at institution). oxyCODONE IR tablet 10 mg (ROXICODONE) 1649 (Given - P rovider: Stef Thurman R.N., C.M.S.R.N.) 1655 (Given - Provider: Stef garibay R.N., C.M.S.R.N.) 10 mg, oral, Every 4 hours PRN, moderate pain or score 4-6 of 10, severe pain or score 7-10 of 10, Starting on Linda 05/08/20 at 1136 polyethylene glycol powder packet 1 packet (MIRALAX) 0903 (Not Given - Provider: Marylou Hopkins R.N. - Reason: Patient/family refused) 1 packet, oral, Daily PRN, constipation, Starting Linda 05/08/20 at 1131, Ordered sequence of administration: polyethylene glycol, then bisacodyl until BM achieved. Avoid mixing with starch-based thickened liquids. sulfur hexafluoride microspheres injection (LUMASON) 1 600 (Given - Provider: Vernon Silva R.N.) intravenous, As needed, contrast, Starti ng on Linda 05/08/20 at 1604, See protocol. Reconstitute each 25 mg vial with 5 mL NS. 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
--- OUTSIDE RECORDS SUMMARY | 2022-03-16 12:23 | XMS_ITS | Encounter Summary ---
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 [facility] Procedures Lower Extremity Arterial (MIMI) - TCPO2 (Wound) [address] [place] [id number] [phone] Referral ID Status Reason Start Date Expiration Date Visits Requ ested Visits Authorized [id number] Closed 09/17/2019 09/16/2020 1 1 Encounter Details Date Type Department Care Team Description 09/17/2019 Orders Only Division of Vascular Masood, Atheros clerosis Of [place] Ar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 (HCC) (Primary Dx); and Endovascular Stacy Mcgee M.S., Athero sclerosis Of [place] Arteries Of Left Leg With Ulceration Of Unspecified Site (HCC); Surgery in [facility] Peripheral Arterial Disease (HCC) [place] [address] [facility] [address] [place] [phone] Social History Tobacco Use Types Packs/Day Years [...] week 03/25/2021 How often do you attend yazdanism or moravian services? 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 Plan of Treatment Not on filedocumented as of this encounter Results Lower Extremity Arterial (MIMI) [...] this encounter Visit Diagnoses Diagnosis Atherosclerosis Of [place] Arteries Of Ex tremities With Intermittent Claudication Right Leg (HCC) - Primary Atherosclerosis Of [place] Arteries Of Le ft Leg With Ulceration Of Unspecified Site (HCC) Peripheral Arterial Disease (HCC) Atherosclerosis Of [place] Arteries Of Ex tremities With Intermittent Claudication Right Leg (HCC) Atherosclerosis Of [place] Arteries Of Le ft Leg With Ulceration Of Unspecified Site (HCC) Peripheral Arterial Disease (HCC) documented in this encounter Additional Health Concerns Assessment Noted Time PHQ-9 Depression Total Score: 3 01/03/2018 10:38 AM CD T documented as of this encounter
--- OUTSIDE RECORDS SUMMARY | 2022-03-16 12:23 | XMS_ITS | Encounter Summary ---
:1950 Author Organization [facility] Address [address] [place] [address] Care Team Providers Name Role Phone Elsewhere, Pcp Primary Care Provider Unavailable Reason for Visit Reason Comments Foreign Body in Skin Right pointer finger, slive r out yesterday in couple days Appointment Request (Routine) - Closed Specialty Diagnoses / Procedures Referred By Contact Refer red To Contact Family Medicine Referral ID Status Reason Start Date Expiration Date Visits Requ ested Visits Authorized [id number] Closed 02/22/2020 02/21/2021 1 1 Encounter Details Date Type Department Care Team Description 02/22/2020 Office Visit Urgent [facility] in [place] [facility], Celluliti s [place], [place] Delmy Right (Primary Dx) [address] [place] [phone] Social History Tobacco Use Types Packs/Day Years Used Date Smoking Tobacco: Every Day Cigarettes 1 35 S tarted: 05/16/1983 Smokeless Tobacco: Never Tobacco Cessation: Ready to Quit: No; Co unseling Given: No Comments: patient plans to quit in the [...] week 03/25/2021 How often do you attend cheondoism or gnosticist services? 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 - 02/22/2020 9:45 AM CDT SUBJECTIVE CHIEF COMPLAINT/REASON FOR VISIT Onesimo Walton is a 70 y.o. male that presents with foreign body to right index finger. He states this may have occurred while working in his garage or outside in the last couple of days. He did get out a sliver of something yesterday at home. He does not know if there are still anything presentin the wound but it is more uncomfortable today and he is worried about infection. He does have a history of diabetes and has lost a couple of toes relatively recently to infections secondary to his diabetes. CURRENT MEDICATIONS Current Outpatient Medications: ??? amLODIPine (NORVASC) 10 mg tablet, Take 1 tablet (10 mg total) by mouth daily., Disp: 90 tablet,Rfl: 3 ??? aspirin [address] tablet, Take 325 mg by mouth daily. Take in evening, Disp: , Rfl: ??? atorvastatin (LIPITOR) 20 mg tablet, Take 1 tablet (20 mg total) by mouth at bedtime., Disp: 90 tablet, Rfl: 3 ??? blood sugar diagnostic (Accu-Chek Guide test strips) strips, FOR TESTING BLOOD SUGARS 6 TIMES DAILY, Disp: 600 strip, Rfl: 3 ??? colchicine (COLCRYS) 0.6 mg tablet, Take 1 tablet (0.6 mg total) by mouth daily. (Patient takingdifferently: Take 0.6 mg by mouth daily. Also as needed ), Disp: 90 tablet, Rfl: 3 ??? doxepin (SINEquan) 10 mg capsule, TAKE ONE CAPSULE BY MOUTH AT BEDTIME, Disp: 90 capsule, Rfl: 3 ??? DULoxetine (for_CYMBALTA) [address] capsule, Take 3 capsules by mouth daily. , Disp: , Rfl: ??? ferrous sulfate 325 mg (65 mg iron) tablet, Take 325 mg by mouth daily., Disp: , Rfl: ??? insulin lispro 100 unit/mL injection, Inject 0.1 mL (10 Units total) under the skin 3 (three) times a day with meals. Takes actually 15units TID with meals, Disp: 10 mL, Rfl: 11 ??? lancets, 6 each daily., Disp: 600 each, Rfl: 3 ??? LANTUS SOLOSTAR U-100 INSULIN 100 unit/mL (3 mL) injection, Inject 0.4 mL (40 Units total) underthe skin every morning., Disp: 5 pen, Rfl: 11 ??? lisinopril-hydroCHLOROthiazide (PRINZIDE,ZESTORETIC) 20-12.5 mg per tablet, Take 1 tablet by mouth., Disp: , Rfl: ??? metoprolol succinate (TOPROL-XL) 200 mg 24 hr tablet, TAKE ONE TABLET BY MOUTH EVERY EVENING DO NOT CRUSH OR CHEW, Disp: 90 tablet, Rfl: 3 ??? nortriptyline (PAMELOR) 50 mg capsule, Take 100 mg by mouth at bedtime. , Disp: , Rfl: 5 ??? omeprazole (PriLOSEC) [address] capsule, Take 20 mg by mouth., Disp: , Rfl: ??? oxyCODONE (ROXICODONE) 10 mg IR tablet, Take 10 mg by mouth every 6 (six) hours as needed for pain (takes 10mg everyday between 0436-8571.)., Disp: , Rfl: ??? pantoprazole (PROTONIX) 40 mg EC tablet, Take 1 tablet (40 mg total) by mouth once daily., Disp:90 tablet, Rfl: 3 ??? pen needle, diabetic 31 gauge x 5/16 needle, Inject 1 Injection under the skin daily. Inject 1 injection under the skin 4 times daily, Disp: 400 each, Rfl: 3 ??? rOPINIRole (REQUIP) 3 mg tablet, TAKE ONE TABLET BY MOUTH EVERY DAY IN THE MORNING AND TAKE THREE TABLETS BY MOUTH EVERY DAY AT BEDTIME, Disp: , Rfl: ??? Vitamin D2 1,250 mcg (50,000 unit) capsule, Take 50,000 Units by mouth once a week., Disp: , Rfl: ??? amoxicillin-pot clavulanate (AUGMENTIN) 875-125 mg per tablet, Take 1 tablet by mouth 2 (two) times a day for 10 days., Disp: 20 tablet, Rfl: 0 ??? clopidogrel (PLAVIX) 75 mg tablet, Take 1 tablet (75 mg total) by mouth daily. Take indefinitelyfor vascular stent patency (Patient not taking: Reported on 02/22/2020 ), Disp: 30 tablet, Rfl: 11 ??? gabapentin (NEURONTIN) 300 mg capsule, Take 300 mg by mouth daily. Taken at bedtime, Disp: , Rfl: ??? nicotine (Nicoderm CQ) 14 mg/24 hr patch, Apply 28 mg (1 x 21 mg patch and 1 x 7 mg patch) dailyfor 4-6 weeks, then taper in 7-14 mg steps every 2-6 weeks until off. (Patient not taking: Reported on 02/22/2020 ), Disp: 14 patch, Rfl: 5 ??? nicotine (Nicoderm CQ) 21 mg/24 hr patch, Apply 28 mg (1 x 21 mg patch and 1 x 7 mg patch) dailyfor 4-6 weeks, then taper in 7-14 mg steps every 2-6 weeks until off. (Patient not taking: Reported on 02/22/2020 ), Disp: 14 patch, Rfl: 5 ??? nicotine (Nicoderm CQ) 7 mg/24 hr patch, Apply 28 mg (1 x 21 mg patch and 1 x 7 mg patch) daily for 4-6 weeks, then taper in 7-14 mg steps every 2-[address] on file[address] (Patient not taking: Reported on 02/22/2020 ), Disp: 14 patch, Rfl: 5 ??? nicotine (NICOTROL) 10 mg inhaler, Puff on cartridges for several minutes each hour. Change cartridge after 2-4 hours. (Patient not taking: Reported on 02/22/2020 ), Disp: 168 each, Rfl: 11 ??? oxyCODONE-acetaminophen (PERCOCET) 5-325 mg per tablet, TAKE ONE TABLET BY MOUTH TWICE A DAY NEEDED FOR MODERATE TO SEVERE PAIN Takes 2 between 3 and 5pm, Disp: , Rfl: 0 Current Facility-Administered Medications: ??? cefTRIAXone 1 g in lidocaine 1%, 1 g, intramuscular, Once, [facility]mie Bain M.D. ALLERGIES/CONTRAINDICATIONS Allergies Allergen Reactions ??? Morphine Itching and Rash itchy ??? Pregabalin Anaphylaxis swell ??? Netwsnd-Fih-Nwu Reductase Inhibitors Myalgia OBJECTIVE Vitals: 02/22/20 0949 BP: (!) 188/73 Pulse: Resp: Temp: PHYSICAL EXAMINATION General Appearance: No acute distress. Extremities: Mild diffuse swelling through the middle and distal phalanges of the right index finger. There is a small break in the skin seen near the pad of the finger where the reported sliver was removed. There is currently no foreign body visualized or felt at the wound site. The distal phalanx around this area is somewhat erythematous warm and tender to palpation however. DIAGNOSTICS X-ray to evaluate for possible foreign body of a metallic nature is discussed and offered but declined. ASSESSMENT / PLAN Puncture wound to right index finger with cellulitis and underlying history of diabetes and previoustoe amputations. Rocephin injection 1 g given here today followed by Augmentin at home. If this should not improve as expected or if it should worsen at any time he is to present to the ER for consideration of more aggressive management. All questions are discussed and answered. Patient voices good understanding and agreement with our plan. Follow-up with primary care to review his blood pressure andmanagement of that ongoing concern. documented in this encounter Plan of Treatment Not on filedocumented as of this encounter Visit Diagnoses Diagnosis Cellulitis Finger Right - Primary documented in this encounter Administered Medications Inactive Administered Medications - up to 3 most recent administrations Medication Order MAR Action Action Date Dose Rate Site cefTRIAXone 1 g in Given 02/22/2020 10:03 1 g Right Ventrogluteal lidocaine 1% AM CDT 1 g, intramuscular, Once, On Tue02/22/20 at 1000, For 1 dose, FOR IM INJECTION ONLY DO NOT GIVE IF PATIENT HAS LIDOCAINE ALLERGY Reconstitute with lidocaine 1% to a concentration of 350 mg/mL: 500 mg vial: add 1 mL 1 g vial: add 2.1 mL 2 g vial: add 4.2 mL Lidocaine volume is the reconstitution volume - draw up appropriate dose Record configured for RN compounding, check math before compounding , Drug Monitoring Program: Pharmacist to adjust medication dosing based on indication and drug clearance factors. documented in this encounter Additional Health Concerns Assessment Noted Time PHQ-9 Depression Total Score: 3 01/03/2018 10:38 AM CD T documented as of this encounter Care Teams Digital Product Manager Relationship Specialty Start Date End Date Elsewhere, Pcp PCP - General Family Medicine 01/29/20 documented as of this encounter
--- OUTSIDE RECORDS SUMMARY | 2022-03-16 12:24 | XMS_ITS | Encounter Summary ---
:1950 Author Organization [facility] Address [address] [place] [address] Care Team Providers Name Role Phone Unavailable Primary Care Provider Unavailable Reason for Visit Auth/Cert Specialty Diagnoses / Procedures Referred By Contact Refer red To Contact Diagnoses Atherosclerosis Of [place] Arteries Of Left Leg With Ulceration Of Unspecified Site (HCC) Atherosclerosis Of [place] Arteries Of Left Leg With Ulceration Of Unspecified Site (HCC) [I70.249] Procedures MA REVASC OPN/PERC ILIAC W STENT IR ENDOVASCULAR ANGIOPLASTY STENT ILIAC LOWER EXTREMITY right femoral access Referral ID Status Reason Start Date Expiration Date Visits Requ ested Visits Authorized [id number] 1 1 Encounter Details Date Type Department Care Team Description 05/11/2019 Anesthesia Event RST ROMB MAIN OR Edmundo Cuevas, [address] [place] [address] [address] [facility] [phone] [place] [phone] (Wo rk) Anesthesia Record Procedure Summary Procedure Name Responsible Anesthesia Start Anesthesia Stop Anesthesiologist Time Time 1. Ultrasound guided Edmundo Cuevas M.D. 05/11/19 1244 04/16 12/01 1415 access to the right common femoral artery and placement of a 6fr sheath. 2. Abdominal aortogram and pelvic angiogram 3. Left external iliac artery stenting with a 7x40mm Innova stent, post-dilated with a 7mm balloon. 4. Right groin access site closure with a perclose device (Left: Groin) Events Date Time Event Comment 05/11/2019 1119 1244 An Start Machine/Equipmen t Checked Infection Precautions Foll owed Procedure/Site Verified NPO Sta tus Verified Supine Standard ASA Mon itors Applied 1244 In Room 1253 Turnover to Proceduralist 1316 Proc Start 1356 Quick Note Room air 1356 Proc Fin 1400 Turnover to ANE Staff 1408 an stop data 1409 Out of Room 1415 An End I completed my h andoff to the receiving staff during [facility] we 1. Identified the patient 2. Ident ified the responsible provider 3. Revi ewed the pertinent medical history 4. Discu ssed the surgical course 5. Reviewed intra-o p anesthesia management and issues during an esthesia 6. Set expectations for post-procedure period 7. Allowed opportun ity for questions and acknowledgement of understanding. Name Total midazolam PF injection 1 mg/mL 1 mg fentanyl injection 50 mcg/mL 50 mcg ketamine 10 mg/mL injection 10 mg propofol 10 mg/mL injection 50 mg propofol 10 mg/mL infusion 215.89 mg dexMEDEtomidine 4 mcg/mL in NaCl 0.9% 100 mL infusion (PRECEDEX) 37.48 mcg ceFAZolin injection 2 g (ANCEF) 2 g heparin 1,000 units/mL injection 9,000 Units protamine 10 mg/mL injection 20 mg plasmalyte-A free drip 500 mL Agents No agents on file. Blood No blood administrations on file. Lines, Drains, and Airways Type Details Placement Removal (RETIRED) Incision 04/18/18; 1139; Groin; 04/18/18 1139 by 02/03 1418 by Bilateral; Emi Cotto PRM [facility] linmakayla-Backgroun NONADH 2X3 (x2); 02/03/21 R.NSamia schrader (Removed by background Automated Batch Job completion utility); 1418 (Removed by background completion utility) Peripheral IV Placement Date: 05/11/19; 05/11/19 1019 by 05/11 2030 by Placement Time: 1019; Manolo Hutchins And rew T, Catheter Size: 20 G; R.N., CCRN Orientation: Lower, Posterior, Right; Location: Forearm; Site Prep: Chlorhexidine (Preferred); Technique: Anatomical landmarks (vcb); Inserted by: TDS; Insertion Attempts: 1; Removal Date: 05/11/19; Removal Time: 2029; Removal Reason: Patient discharged (RETIRED) Incision 12/27/19; 1351; Groin; 05/11/19 1351 by 02/03 1418 by Left; 02/03/21 (Removed Martina Morales, [facility] by background completion Jourdan, R.N. jaret, [employer] utility); 1418 (Removed Automate d Batch Job by background completion utility) documented in this encounter Social History Tobacco Use Types Packs/Day Years [...] week 03/25/2021 How often do you attend protestant or quaker services? 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 - 05/11/2019 5:35 PM CST Patient: Onesimo Walton Procedure Summary Date: 05/11/19 Room / Location: [facility] [address] / [facility] in [place], [place] Anesthesia Start: 1244 Anesthesia Stop: 1415 Procedure: IR ENDOVASCULAR ANGIOPLASTY STENT ILIAC LOWER EXTREMITY, right femoral access. (Left Groin) Diagnosis: Atherosclerosis Of [place] Arteries Of Left Leg With Ulceration Of Unspecified Site (HCC) (Atherosclerosis Of [place] Arteries Of Left Leg With Ulceration Of Unspecified Site (HCC) [I70.249].) Provider: Kemar Velásquez M.B.B.SFei Responsible Provider: Edmundo Cuevas M.D. Anesthesia Type: MAC ASA Status: 3 Anesthesia Type: MAC Last vitals Vitals Value Taken Time BP 127/74 05/11/2019 5:30 PM Temp Pulse 75 05/11/2019 5:35 PM Resp 13 05/11/2019 5:35 PM SpO2 91 % 05/11/2019 5:35 PM Vitals shown include unvalidated device data. Please reference Vitals flowsheet for most recent vital signs. Anesthesia Post Evaluation Patient Disposition: dismissal Cardiovascular status: hemodynamics (HR & BP) acceptable Respiratory status: patent airway with spontaneous effort Temperature: normothermic Oxygen requirements: room air Level of consciousness: awake Pain score: pain adequately controlled and/or at baseline Post Op nausea/vomiting: none Hydration status: euvolemic RNAL SALES Anesthesia Preprocedure Evaluation - Edmundo Cuevas M.D. - 05/11/2019 11:18 AM CST Preprocedure Anesthesia & H&P Assessment Procedure Summary Date/Time: 05/11/19 1126 Procedure: IR ENDOVASCULAR ANGIOPLASTY STENT ILIAC LOWER EXTREMITY, right femoral access. (Left ) Diagnosis: Atherosclerosis Of [place] Arteries Of Left Leg With Ulceration Of Unspecified Site (HCC)[I70.249] Pre-op diagnosis: Atherosclerosis Of [place] Arteries Of Left Leg With Ulceration Of Unspecified Site (HCC) [I70.249]. Location: [place] [address] [address] / [facility] in [place], [place] Provider: Kemar Velásquez M.B.BFeiSFei Pertinent components of the patient's history including current problem list, medical history, surgical history, family history, social history, medications and allergies were reviewed. Present illnessand pre-op diagnosis were confirmed. The planned surgery / procedure was verified with the patient /legal guardian. The patient's general health condition remains unchanged PROBLEM LIST Relevant Problems CV (+) Hypertension And Chronic Kidney Disease Stage 1 To 4 (+) Hypertension NOS RENAL/REPRO (+) Hypertension And Chronic Kidney Disease Stage 1 To 4 ENDO (+) Diabetes Mellitus Type 2 With Other Circulatory Complication Hyperglycemic (HCC) PSYCH (+) Depression Major Recurrent Moderate (HCC) GENETICS (+) Diabetes Mellitus Type 2 With Other Circulatory Complication Hyperglycemic (HCC) (+) Hyperlipidemia Other (+) Atherosclerosis Of [place] Ar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 (HCC) (+) Atherosclerosis Of [place] Arteries Of Left Leg With Ulceration Of Unspecified Site (HCC) (+) Restless Leg Syndrome (+) Ulcer Leg Left (+) Ulcer Toe Left OBJECTIVE PHYSICAL EXAMINATION Airway (HEENT) Mallampati: III TM Distance: >3 FB Neck ROM: Full Mouth Opening: >3 cm Upper Lip Bite Test Class: I Cardiovascular Rhythm: Regular Rate: Normal Cardiovascular Assessment: cardiovascular normal Functional Capacity: >4 METS Pulmonary Pulmonary Assessment: Clear General / Constitutional Constitutional Assessment: Normal General State of Health:: healthy appearing and calm Dental Dental Assessment: dentition in poor repair ASSESSMENT / PLAN ANESTHESIA PLAN ASA: 3 Anesthesia Plan: MAC Patient seen and allergies reviewed, anesthesia plan and risks discussed directly with patient /legal guardian or through an interpreter for the deaf. The use of blood products not discussed Approval to Proceed: approved for anesthesia 69M w/ h/o PVD, HTN, CKD, DMII on plavix, metop succ presenting ror endovascular stent of left iliac. Will plan MAC. RNAL SALES documented in this encounter Plan of Treatment Not on filedocumented as of this encounter Visit Diagnoses Not on filedocumented in this encounter Administered Medications Inactive Administered Medications - up to 3 most recent administrations Medication Order MAR Action Action Date Dose Rate Site ceFAZolin injection 2 g (ANCEF) Given 05/11/2019 1:04 PM INTERNAL SALES 2 g 2 g, intravenous, Once, On Tue05/11/19 at 1230, For 1 dose, Intra-Op, Preoperatively within 1 hour prior to surgical incision If needed, reconstitute vial per package insert instructions. See IVAG for administration guidelines. , , Drug Monitoring Program: Pharmacist to adjust medication dosing based on indication and drug clearance factors., Indications: Prophylaxis, surgical dexMEDEtomidine 4 mcg/mL Rate/Dose Change 05/11/2019 12:56 0.5 mcg/ kg/hr 10.6 mL/hr in NaCl 0.9% 100 mL PM INTERNAL SALES infusion (PRECEDEX) 0.2-1.5 mcg/kg/hr ? 85.5 kg Dosing weight (4.275-32.0625 mL/hr, rounded to 4.27-32.06 mL/hr), intravenous, Continuous, Starting on Tue05/11/19 at 1130, Premix ba mcg in 100 mL, Initiate at: 0.2 mcg/kg/hr., Titrate at: 0.1 mcg/kg/hr every 10 min., Goal: RASS -1, Restriction Criteria (Pharmacy will review and approve if criteria met): INITIATED and MAINTAINED only in patients in the operating rooms or in the intensive care unit New Bag 05/11/2019 12:50 PM INTERNAL SALES 0.3 mcg/kg/hr 6.41 mL/hr electrolyte-A solution (PLASMA-LYTE A) New Bag 05/11/2019 12:48 PM INTERNAL SALES intravenous, Continuous Infusion: Per Instructions PRN, Starting on Tue05/11/19 at 1248, Anesthesia Intra-op fentaNYL injection (SUBLIMAZE) Given 05/11/2019 12:53 PM INTERNAL SALES 50 mcg intravenous, As needed, Starting on Tue05/11/19 at 1253, Anesthesia Intra-op heparin (porcine) 1,000 unit/mL Given 05/11/2019 1:37 PM INTERNAL SALES 9,0 00 Units injection As needed, Starting on Tue05/11/19 at 1337, Anesthesia Intra-op ketamine injection (KETALAR) Given 05/11/2019 12:55 PM INTERNAL SALES 10 mg intravenous, As needed, Starting on Tue05/11/19 at 1255, Anesthesia Intra-op midazolam (PF) injection (VERSED) Given 05/11/2019 12:53 PM INTERNAL SALES 1 mg As needed, Starting on Tue05/11/19 at 1253, Anesthesia Intra-op propofol 10 mg/mL infusion Rate/Dose 05/11/2019 1:24 25 mcg/kg/min 1 2.8 mL/hr (DIPRIVAN) Change PM INTERNAL SALES intravenous, Continuous Infusion: Per Instructions PRN, Starting on Tue05/11/19 at 1250, Anesthesia Intra-op Rate/Dose Change 05/11/2019 12:57 PM INTERNAL SALES 75 mcg/kg/min 38.5 mL/hr New Bag 05/11/2019 12:50 PM INTERNAL SALES 50 mcg/kg/min 25.7 mL/hr propofol injection (DIPRIVAN) Given 05/11/2019 12:50 PM INTERNAL SALES 50 mg intravenous, As needed, Starting on Tue05/11/19 at 1250, Anesthesia Intra-op protamine injection Given 05/11/2019 1:50 PM INTERNAL SALES 15 mg As needed, Starting on Tue05/11/19 at 1348, Anesthesia Intra-op Given 05/11/2019 1:48 PM INTERNAL SALES 5 mg documented in this encounter Additional Health Concerns Assessment Noted Time PHQ-9 Depression Total Score: 3 01/03/2018 10:38 AM CD T documented as of this encounter
--- OUTSIDE RECORDS SUMMARY | 2022-03-16 12:24 | XMS_ITS | Encounter Summary ---
:1950 Author Organization [facility] Address [address] [place] [address] Care Team Providers Name Role Phone Unavailable Primary Care Provider Unavailable Reason for Visit Reason Comments Med Refill Encounter Details Date Type Department Care Team Description 07/06/2019 Refill Department of Angi Dickens M.D. Med Refill Medicine, [facility], [address] [place] [address], [facility] [address] [place] [address] Social History Tobacco Use Types Packs/Day Years [...] How often do you attend hindu or faith services? Never 03/25/2021 Do you belong to [...]
--- OUTSIDE RECORDS SUMMARY | 2022-03-16 12:24 | XMS_ITS | Encounter Summary ---
:1950 Author Organization [facility] Address [address] [place] [address] Care Team Providers Name Role Phone Unavailable Primary Care Provider Unavailable Reason for Visit Reason Onset Date Comments Med Refill 05/14/2019 Encounter Details Date Type Department Care Team Description 05/14/2019 Refill Department of Family Medicine, Bambi Adler Med Refill [facility] Renee Phillips M.D. [place] [id number] [place] [address] [place] [address] [phone] Social History Tobacco Use Types Packs/Day Years [...] week 03/25/2021 How often do you attend zoroastrian or uatsdin services? 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
--- OUTSIDE RECORDS SUMMARY | 2022-03-16 12:24 | XMS_ITS | Encounter Summary ---
:1950 Author Organization [facility] Address [address] [place] [address] Care Team Providers Name Role Phone Unavailable Primary Care Provider Unavailable Reason for Visit Reason Onset Date Comments Clopidogrel 05/04/2019 Encounter Details Date Type Department Care Team Description 05/04/2019 Clinical Communication Division of Vascular and Kemar Velásquez Clopidogrel [place] [address] [facility] [place] [address] [place] [address] [phone] Social History Tobacco Use Types Packs/Day Years Used Date Smoking Tobacco: Former Cigarettes 0.5 Quit : 03/16/2018 Smokeless Tobacco: Never Alcohol Use Standard Drinks/Week Comments No 0 [...] week 03/25/2021 How often do you attend tenriism or mosque services? 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 Walton called and said he was supposed to get back to you with what medication he is taking. Heis taking clopidogrel 75 mg. Hermelinda NER INDUSTRIAL documented in this encounter Plan of Treatment Not on filedocumented as of this encounter Visit Diagnoses Not on filedocumented in this encounter Additional Health Concerns Assessment Noted Time PHQ-9 Depression Total Score: 3 01/03/2018 10:38 AM CD T documented as of this encounter
--- OUTSIDE RECORDS SUMMARY | 2022-03-16 12:24 | XMS_ITS | Encounter Summary ---
:1950 Author Organization [facility] Address [address] [place] [address] Care Team Providers Name Role Phone Unavailable Primary Care Provider Unavailable Reason for Referral Outpatient (Routine) - Closed Specialty Diagnoses / Procedures Referred By Contact Refer red To Contact Vascular Surgery Kemar Velásquez M.B.B. [place] 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 encounter Plan of Treatment Scheduled Referrals Name Type Priority Associated Diagnoses Order [facility] V[facility] Surgery Outpatient Referral Routine Expe cted: office visit 08/25/2019 (clinic) (Approximate), Expires: 06/26/2022 documented as of this encounter Results US Aorta Iliac Arteries Left with Doppler (09/17/2019 11:35 AM CDT) Anatomical Region Laterality Modality Abdomen, Pelvis, Ultrasound RST LOS, Ultrasound ARZ LOS, Lef t Ultrasound Ultrasound FLA LOS, Procedural Specimen (Source) Anatomical Collection Method Collection Time Re ceived Time Location / / Volume Laterality 09/17/2019 11:37 AM CDT Impressions 09/17/2019 11:47 AM CDT 1. Mild progression of stenosis in the proximal portion of the left common iliac artery stent. 2. Stented left external iliac artery is patent and negative for stenosis. Narrative 09/17/2019 11:47 AM CDT EXAM: US AORTA ILIAC ARTERIES LEFT WITH DOPPLER Exam performed with color and spectral D oppler analysis. COMPARISON: 05/03/2019. FINDINGS: ??The distal abdominal aorta i s patent and normal in caliber. Patent stented left common iliac artery. Elevat ed blood flow velocity in the proximal stent has increased since the prior exam ination (410 cm/s today versus 321 cm/s previously) and is suggestive of mildly progressed in-stent stenosis. The remainder of the left common iliac arter y stent is patent and negative for stenosis. Status post interval left exte rnal iliac artery stenting. The stented left external iliac artery is patent and negative for significant stenosis. The origin of the left internal iliac artery is widely patent. Status post left femoral endarterectomy. The left common femoral artery, including its bifurcation site, is widely patent. Procedure Note Niels Berg M.D. - 09/17/2019Forma tting of this note might be different from the original. EXAM: US AORTA ILIAC ARTERIES LEFT WITH DOPPLER Exam performed with color and spectral D oppler analysis. COMPARISON: 05/03/2019. FINDINGS: The distal abdominal aorta is patent and normal in caliber. Patent stented left common iliac artery. Elevat ed blood flow velocity in the proximal stent has increased since the prior exam ination (410 cm/s today versus 321 cm/s previously) and is suggestive of mildly progressed in-stent stenosis. The remainder of the left common iliac arter y stent is patent and negative for stenosis. Status post interval left exte rnal iliac artery stenting. The stented left external iliac artery is patent and negative for significant stenosis. The origin of the left internal iliac artery is widely patent. Status post left femoral endarterectomy. The left common femoral artery, including its bifurcation site, is widely patent. IMPRESSION: 1. Mild progression of stenosis in the p roximal portion of the left common iliac artery stent. 2. Stented left external iliac artery is patent and negative for stenosis. 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
--- OUTSIDE RECORDS SUMMARY | 2022-03-16 12:24 | XMS_ITS | Encounter Summary ---
:1950 Author Organization [facility] Address [address] [place] [address] Care Team Providers Name Role Phone Unavailable Primary Care Provider Unavailable Reason for Visit Reason Comments COVID Nurse Line Encounter Details Date Type Department Care Team Description 09/11/2019 Clinical Communication Division of Vascular Hallie Velásquez, TOBI Nurse Line and Endovascular M.B.B.S. Surgery in [place], [facility] [address] [place], [place] [address] [place] [address] [place], [place] [phone] [address] (Work) [phone] Social History Tobacco Use Types Packs/Day Years [...] week 03/25/2021 How often do you attend alevism or church services? 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 In the past 14 days, [...] or possible COVID-19? no Route reply to: Kinza GARCIA [facility] SCHEDULING Scheduling Contact Number: [phone] documented in this encounter Plan of Treatment Not on filedocumented as of this encounter Visit Diagnoses Not on filedocumented in this encounter Additional Health Concerns Assessment Noted Time PHQ-9 Depression Total Score: 3 01/03/2018 10:38 AM CD T documented as of this encounter
--- OUTSIDE RECORDS SUMMARY | 2022-03-16 12:24 | XMS_ITS | Encounter Summary ---
:1950 Author Organization [facility] Address [address] [place] [address] Care Team Providers Name Role Phone Unavailable Primary Care Provider Unavailable Encounter Details Date Type Department Care Team Description 05/03/2019 Hospital Encounter Department of Kemar Velásquez, Katherine ral Arterial Disease (HCC); Radiology, Santiago Reyes Atherosclerosis Of [place] Arteries Of Le ft Leg With Ulceration Of Unspecified Site (HCC); Building, in [address] [place] [address] Atherosclerosis Of [place] Arteries Of Ex tremities With Intermittent Claudication Right Leg (HCC) [facility] [phone] [place] [address] [place], [place] (Work) [phone] Social History Tobacco Use Types Packs/Day Years [...] week 03/25/2021 How often do you attend zoroastrianism or zoroastrian services? 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 Take in evening DULoxetine (CYMBALTA) 60 Take 60 mg by mouth [address] capsule at bedtime. lancets 6 each daily. 600 each 3 03/07/2019 nortriptyline (PAMELOR) Take 100 mg by mouth 5 50 mg capsule at bedtime. omeprazole (PriLOSEC) 40 Take 40 mg by mouth [address] capsule every evening. ACCU-CHEK XIAO PLUS for testing blood 600 strip 11 10/25/19 19 01/17/2020 TEST STRP strips sugars 6 times daily amLODIPine (NORVASC) 10 Take 1 tablet (10 mg 90 tablet 3 05/27/2021 mg tablet total) by mouth daily. atorvastatin (LIPITOR) TAKE ONE TABLET BY 90 tablet 3 07/2607/25/2019 20 mg tablet MOUTH EVERY DAY AT BEDTIME colchicine (COLCRYS) 0.6 Take 1 tablet (0.6 90 tablet 3 12/201805/10/2020 mg tablet mg total) by mouth daily. doxepin (SINEquan) 10 mg Take 10 mg by mouth 11 05/11/2019 capsule at bedtime. doxepin (SINEquan) 10 mg TAKE ONE CAPSULE BY 90 capsule 3 02/29/2020 capsule MOUTH AT BEDTIME gabapentin (NEURONTIN) Take 1 capsule (300 60 capsule 5 11/201705/11/2019 300 mg capsule mg total) by mouth 2 (two) times a day. insulin lispro 100 Inject 0.1 mL (10 10 mL 11 07/14/2018 05/10/2020 unit/mL injection Units total) under the skin 3 (three) times a day with meals. Takes actually 15units TID with meals LANNONA SOLOSTAR U-100 Inject 0.4 mL (40 5 pen 11 019 02/04/2021 INSULIN 100 unit/mL (3 Units total) under mL) injection the skin every morning. lisinopril-hydroCHLOROth Take 1 tablet by 0 02/1505/08/2020 iazide mouth daily. (PRINZIDE,ZESTORETIC) 20-12.5 mg per tablet metoprolol succinate Take 1 tablet (200 90 tablet 0 019 07/06/2019 (TOPROL-XL) 200 mg 24 hr mg total) by mouth tablet every evening. Do not crush or chew. oxyCODONE (OxyCONTIN) 20 Take 15 mg by mouth 0 05/11/2019 mg 12 hr tablet every 12 (twelve) hours. oxyCODONE (ROXICODONE) Take 10 mg by mouth 0 03/1705/11/2019 10 mg IR tablet every 6 (six) hours as needed. for pain oxyCODONE-acetaminophen TAKE ONE TABLET BY 0 09/1405/08/2020 (PERCOCET) 5-325 mg per MOUTH TWICE A DAY tablet NEEDED FOR MODERATE TO SEVERE PAIN Takes 2 between 3 and 5pm pantoprazole (PROTONIX) Take 1 tablet (40 mg 90 tablet 0 06/01/2019 40 mg EC tablet total) by mouth once daily. pen needle, diabetic 31 Inject 1 Injection 150 each 11/201705/14/2019 gauge x 5/16 needle under the skin daily. Inject 1 injection under the skin 4 times daily rOPINIRole (REQUIP) 2 mg Take 0.5 tablets (1 15 tablet 0 05/11/2019 tablet mg total) by mouth at bedtime. tiZANidine (ZANAFLEX) 4 TO ONE TABLET BY 0 201705/11/2019 mg tablet MOUTH THREE TIMES A DAY NEEDED, takes one in the afternoon, one at supper and one at bedtime Vitamin D2 1,250 mcg Take 50,000 Units by 0 04/2502/23/2022 (50,000 unit) capsule mouth once a week. Sundays documented as of this encounter Plan of Treatment Not on filedocumented as of this encounter Procedures Procedure Name Priority Date/Time Associated Comments Diagnosis US AORTA ILIAC RAD - Routine 05/03/2019 8:04 Peripheral Arterial Re sults for this ARTERIES LEFT (most inpatients AM ACCESS SERVICES REPRESENTATIVE Disease (HCC) procedure are in WITH DOPPLER and all Atherosclerosis Of the resul ts outpatients) [place] Arteries Of section. Left Leg With Ulceration Of Unspecified Site (HCC) Atherosclerosis Of [place] Ar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 (HCC) documented in this encounter Results US Aorta Iliac Arteries Left with Doppler (05/03/2019 8:04 AM ACCESS SERVICES REPRESENTATIVE) Anatomical Region Laterality Modality Abdomen, Pelvis, Ultrasound RST LOS, Ultrasound ARZ LOS, Lef t Ultrasound Ultrasound FLA LOS, Procedural Specimen (Source) Anatomical Collection Method Collection Time Re ceived Time Location / / Volume Laterality 05/03/2019 8:53 AM ACCESS SERVICES REPRESENTATIVE Impressions 05/03/2019 9:35 AM ACCESS SERVICES REPRESENTATIVE 1. Progression in high-grade stenosis of the distal left external iliac artery. 2. Stable elevated velocities in the lef t common iliac artery stent suggestive of moderate stent stenosis. Narrative 05/03/2019 9:35 AM ACCESS SERVICES REPRESENTATIVE EXAM: US AORTA ILIAC ARTERIES LEFT WITH DOPPLER Exam performed with color and spectral D oppler analysis. COMPARISON: 07/18/2018 FINDINGS: ??The distal abdominal aorta i s normal in caliber and patent. LEFT: Patent stented common iliac artery with elevated velocities in the proximal stent although this is slightly lower than the prior CT (321 cm/s, previously 395 cm/s). Diffusely elevated velocities through the remaining stent. The origin of the internal iliac arterie s patent without significant stenosis. Progression in severe stenosis in the di stal external iliac artery (506 cm/s, previously 305 cm/s). Left femoral endar terectomy is patent with low resistance waveforms in the common femoral artery. Procedure Note Kristi Reid M.B.B.S., MTenisha. - 05/03/20 19 EXAM: US AORTA ILIAC ARTERIES LEFT WITH DOPPLER Exam performed with color and spectral D oppler analysis. COMPARISON: 07/18/2018 FINDINGS: The distal abdominal aorta is normal in caliber and patent. LEFT: Patent stented common iliac artery with elevated velocities in the proximal stent although this is slightly lower than the prior CT (321 cm/s, previously 395 cm/s). Diffusely elevated velocities through the remaining stent. The origin of the internal iliac arterie s patent without significant stenosis. Progression in severe stenosis in the di stal external iliac artery (506 cm/s, previously 305 cm/s). Left femoral endar terectomy is patent with low resistance waveforms in the common femoral artery. IMPRESSION: 1. Progression in high-grade stenosis of the distal left external iliac artery. 2. Stable elevated velocities in the lef t common iliac artery stent suggestive of moderate stent stenosis. 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
--- OUTSIDE RECORDS SUMMARY | 2022-03-16 12:24 | XMS_ITS | Encounter Summary ---
:1950 Author Organization [facility] Address [address] [place] [address] Care Team Providers Name Role Phone Unavailable Primary Care Provider Unavailable Encounter Details Date Type Department Care Team Description 09/17/2019 Hospital Encounter Department of Kemar Velásquez Atheros clerosis Radiology, [facility] Amy Arteriosclerosis [facility], in [address] [place] [address] [place], [place] Extremity With [place] [id number] Claudication (HCC) [address] [place] [address] [place], [place] (Work) [phone] Social History Tobacco Use Types Packs/Day Years [...] How often do you attend tenriism or jehovah's witness services? 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 documented in this encounter Results US [...] is patent and negative for stenosis. Kemar ETIENNE PROCEDURES documented in this encounter Visit Diagnoses Diagnosis Atherosclerosis Arteriosclerosis [place] Extremity With Claudication (HCC) documented in this encounter Additional Health Concerns Assessment Noted Time PHQ-9 Depression Total Score: 3 01/03/2018 10:38 AM CD T documented as of this encounter
--- OUTSIDE RECORDS SUMMARY | 2022-03-16 12:24 | XMS_ITS | Encounter Summary ---
:1950 Author Organization [facility] Address [address] [place] [address] Care Team Providers Name Role Phone Unavailable Primary Care Provider Unavailable Reason for Visit Outpatient (Routine) - Closed Specialty Diagnoses / Procedures Referred By Contact Refer red To Contact Vascular Surgery Kemar Velásquez, M.B.B. S[facility] [place] [address] [place] [phone] Referral ID Status Reason Start Date Expiration Date Visits Requ ested Visits Authorized [id number] Closed 07/18/2018 07/18/2019 1 1 Encounter Details Date Type Department Care Team Description 05/04/2019 Office Visit Division of Vascular Kemar Velásquez, Athero sclerosis Of [place] and Endovascular M.B.B.S. Arteries Of Left Leg With Surgery in [address] Ulceration Of Unspecified [place], [place] Site (HCC) (Primary Dx) [address] [place] [phone] [place], [place] [phone] (Work) [phone] Social History Tobacco Use Types Packs/Day Years [...] week 03/25/2021 How often do you attend mormonism or sikh services? 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 - 05/04/2019 11:00 AM FILM NUMBERER Do not take Humalog (lispro) insulin morning of procedure. Follow instructions in Checklist for Surgical Patients regarding Lantus insulin based on your reporttime. OK to take all other regular morning medications on the morning of the procedure with sips of water. NUMBERER documented in this encounter Consult Notes Kemar Velásquez M.B.BFeiS. - 05/04/2019 11:00 AM CST Onesimo Walton : 1950 Visit Date: 05/06/19 SUBJECTIVE CHIEF COMPLAINT/ REASON FOR VISIT: HISTORY OF PRESENT ILLNESS: Onesimo Walton is a 69 y.o. male who returns for follow-up of bilateral peripheral arterial disease affecting lower extremities. Unfortunately, he has started smoking again and his smokes around him in the house. The left calf is causing him significant problems with claudication. On reviewof his ultrasound imaging there is severe stenosis of the distal left external iliac artery, distal to the stent placed by Dr. Concepcion. The current medications, allergies, medical, surgical, social, and family history sections of the chart have been reviewed and updated as pertinent. OBJECTIVE VITAL SIGNS There were no vitals filed for this visit. PHYSICAL EXAM: General: Alert and oriented, No acute distress. Extremities: Warm, no evidence of any ulcers or gangrene VASCULAR EXAM:: Peripheral Vascular Pulse Exam Left Femoral: 1+ Right Femoral: 4+ DIAGNOSTIC FINDINGS: I have reviewed the patient's current laboratory, imaging, and other diagnosticstudies as pertinent. Patent left common femoral artery patch. Patent bilateral SFA stents. There is severe stenosis in the distal left external iliac artery beyond the stent. MIMI 0.69 on the left and 0.79 on the right ASSESSMENT / PLAN 69-year-old gentleman with the bilateral lower extremity peripheral arterial disease and interventions as described earlier. Unfortunately he is struggling with ongoing cigarette smoking and his is smoking in the same house as he lives. He has evidence of a critical stenosis of the left external iliac artery with a stent proximal to it and a patch distal to it. I would like to intervene on it rather soon to prevent failure of the iliac or femoral reconstruction. I told him I was extremely disappointed that he could not quit smoking and that it is largely contributing to these ongoing needs forreinterventions. DIAGNOSIS #1 Atherosclerosis Of [place] Arteries Of Left Leg With Ulceration Of Unspecified Site (HCC) Frankie ReneeB.S. NUMBERER documented in this encounter Plan of Treatment Not on filedocumented as of this encounter Results (ABNORMAL) Staphylococcus aureus Detection by Rapid PCR (05/04/2019 1:05 PM FILM NUMBERER) Component Value Ref Range Test Analysis Performed Pathologis t Method Time At Signature Staphylococcus Swab, Nares 05/05/2019 DTL aureus PCR 3:44 PM FILM NUMBERER Specimen Source Result Positive Not 05/05/2019 DTL (A) Applicable 3:44 PM FILM NUMBERER Comment: ----ADDITIONAL INFORMATION---- This test was developed and its performa nce characteristics determined by [facility] in a manner consistent with CLIA requirements. This test has not been cleared or approved by the [place] and Drug Administration. Specimen Anatomical Collection Method Collection Time Receive d Time (Source) Location / / Volume Laterality Varies (Nares) 05/04/2019 1:05 PM 019 1:39 FILM NUMBERER PM FILM NUMBERER Kemar Reyes LAB MICROBIOLOGY - GENERAL O RDERABLES Performing Organization Address City/State/ZIP Code Phon e Number [facility] - [address] [place], [place] [address] [facility] [place] [address] [facility] [place] [address] documented in this encounter Visit Diagnoses Diagnosis Atherosclerosis Of [place] Arteries Of Le ft Leg With Ulceration Of Unspecified Site (HCC) - Primary documented in this encounter Additional Health Concerns Assessment Noted Time PHQ-9 Depression Total Score: 3 01/03/2018 10:38 AM CD T documented as of this encounter
--- OUTSIDE RECORDS SUMMARY | 2022-03-16 12:24 | XMS_ITS | Encounter Summary ---
:1950 Author Organization [facility] Address [address] [place] [address] Care Team Providers Name Role Phone Unavailable Primary Care Provider Unavailable Reason for Visit Reason Onset Date Comments Med Refill 06/01/2019 Encounter Details Date Type Department Care Team Description 06/01/2019 Refill Department of Family Medicine, Bambi Adler, Med Refill [facility] Renee Phillips M.D. [place] [address] [place] [address] [place] [address] [phone] Social History Tobacco Use Types Packs/Day Years [...] How often do you attend anglican or church services? 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
--- OUTSIDE RECORDS SUMMARY | 2022-03-16 12:24 | XMS_ITS | Encounter Summary ---
:1950 Author Organization [facility] Address [address] [place] [address] Care Team Providers Name Role Phone Unavailable Primary Care Provider Unavailable Reason for Referral Outpatient (Routine) - Closed Specialty Diagnoses / Procedures Referred By Contact Refer red To Contact Family Medicine SHIVA Catalan SE, M.D. 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 ANGIET Nena marino For Therapeutic Renee escobedo M.D. Drug Therapy [address] [place] [phone] (Wo rk) Social History Tobacco Use Types [...] How often do you attend restoration or buddhism services? 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 encounter Plan of Treatment Scheduled Orders Name Type Priority Associated Diagnoses Order S cheredle Potassium Lab Routine Monitoring For Therapeutic D rug Expected: 07/10/2019, Therapy Expires: 2022 Scheduled Referrals Name Type Priority Associated Diagnoses Order S abisaile Family Medicine Outpatient Referral Routine Expec jennifer: office visit 07/10/2019, (clinic) Expires: 06/26/2022 documented as of this encounter Visit Diagnoses Diagnosis Monitoring For Therapeutic Drug Therapy documented in this encounter Additional Health Concerns Assessment Noted Time PHQ-9 Depression Total Score: 3 01/03/2018 10:38 AM CD T documented as of this encounter
--- OUTSIDE RECORDS SUMMARY | 2022-03-16 12:24 | XMS_ITS | Encounter Summary ---
:1950 Author Organization [facility] Address [address] [place] [address] Care Team Providers Name Role Phone Unavailable Primary Care Provider Unavailable Encounter Details Date Type Department Care Team Description 05/03/2019 Ancillary Procedure Department of Vascular Social History Tobacco Use Types Packs/Day Years [...] week 03/25/2021 How often do you attend hoahaoism or hinduism services? 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 documented in this encounter Results Lower Arterial-Vascular Image Exam (05/03/2019 9:55 AM COMPLIANCE PARALEGAL) Specimen (Source) Anatomical Collection Method Collection Time Re ceived Time Location / / Volume Laterality 05/03/2019 9:53 AM COMPLIANCE PARALEGAL Narrative [facility] - 05/03/2019 10:35 AM COMPLIANCE PARALEGAL This order has been created and auto-finalized to support the import of images acquired without order. The clini ammy documentation to support these images can be found on the encounter dioni t produced images. Provider Not In System IMG NON RAD IMAGING PROCEDUR ES Performing Organization Address City/State/ZIP Code Phon e Number [facility] NA documented in this encounter Visit Diagnoses Not on filedocumented in this encounter Additional Health Concerns Assessment Noted Time PHQ-9 Depression Total Score: 3 01/03/2018 10:38 AM CD T documented as of this encounter
--- OUTSIDE RECORDS SUMMARY | 2022-03-16 12:24 | XMS_ITS | Encounter Summary ---
:1950 Author Organization [facility] Address [address] [place] [address] Care Team Providers Name Role Phone Unavailable Primary Care Provider Unavailable Reason for Visit Auth/Cert Specialty Diagnoses / Procedures Referred By Contact Refer red To Contact Diagnoses Atherosclerosis Of [place] Arteries Of Left Leg With Ulceration Of Unspecified Site (HCC) Atherosclerosis Of [place] Arteries Of Left Leg With Ulceration Of Unspecified Site (HCC) [I70.249] Procedures NM REVASC OPN/PERC ILIAC W STENT IR ENDOVASCULAR ANGIOPLASTY STENT ILIAC LOWER EXTREMITY right femoral access Referral ID Status Reason Start Date Expiration Date Visits Requ ested Visits Authorized [id number] 1 1 Encounter Details Date Type Department Care Team Description 05/11/2019 Hospital Encounter RST WENDY PETERS OR Kemar Velásquez, Atherosclerosis Of [address] M.B.B.S. [place] Arteries Of Left [place], [place] [address] [facility] [place] [address] [place], [place] Unspecified Site (HCC) [phone] [id number] Social History Tobacco Use Types Packs/Day Years [...] How often do you attend druze or hoahaoism services? 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 Male 03/24/2021 8:13 PM EDITORIAL SPECIALIST documented as of this encounter Last Filed Vital Signs Vital Sign Reading Time Taken Comments Blood Pressure 128/71 05/11/2019 6:30 PM EDITORIAL SPECIALIST Pulse 77 05/11/2019 8:09 PM EDITORIAL SPECIALIST Temperature 36.6 ??C (97.9 ??F) 05/11/2019 2:10 PM EDITORIAL SPECIALIST Respiratory Rate 18 05/11/2019 8:09 PM EDITORIAL SPECIALIST Oxygen Saturation 93% 05/11/2019 8:09 PM EDITORIAL SPECIALIST Inhaled Oxygen Concentration - - Weight 85.5 kg (188 lb 7.9 oz) 05/11/2019 7:20 AM EDITORIAL SPECIALIST Height 175 cm (5' 8.9) 05/11/2019 7:20 AM EDITORIAL SPECIALIST Body Mass Index 27.92 05/11/2019 7:20 AM EDITORIAL SPECIALIST documented in this encounter Medications at Time of Discharge Medication Sig Dispensed Refills Start Date End Date aspirin [address] Take 325 mg by mouth 0 tablet daily. Take in evening DULoxetine (CYMBALTA) Take 60 mg by mouth 0 08/[address] capsule at bedtime. ferrous sulfate 325 mg Take 27 mg by mouth 0 (65 mg iron) tablet daily. States taking 27 mg daily nortriptyline (PAMELOR) Take 100 mg by mouth 5 50 mg capsule at bedtime. omeprazole (PriLOSEC) Take 40 mg by mouth 0 09/[address] capsule every evening. lancets 6 each daily. 600 each 3 03/07/2019 amLODIPine (NORVASC) 10 Take 1 tablet (10 mg 90 tablet 3 05/27/2021 mg tablet total) by mouth daily. atorvastatin (LIPITOR) TAKE ONE TABLET BY 90 tablet 3 07/2607/25/2019 20 mg tablet MOUTH EVERY DAY AT BEDTIME colchicine (COLCRYS) Take 1 tablet (0.6 mg [...] tablet metoprolol succinate Take 1 tablet (200 mg 90 tablet 0 03/1607/06/2019 (TOPROL-XL) 200 mg 24 total) by mouth every hr tablet evening. Do not crush or chew. oxyCODONE (ROXICODONE) Take 10 mg by mouth [...] TABLETS BY MOUTH EVERY DAY AT BEDTIME mupirocin (BACTROBAN) 2 Apply 1 application 10 g 0 05/16/2019 % nasal ointment to each nostril 2 (two) times a day for 9 doses. Use one-half of tube in each nostril twice daily for five (5) days. After application, press sides of nose together and gently massage. ACCU-CHEK XIAO PLUS for testing blood 600 strip 10/25/1901/17/2020 TEST STRP strips sugars 6 times daily clopidogrel (PLAVIX) 75 Take 1 tablet (75 mg 30 tablet 05/08/2020 mg tablet total) by mouth daily. Take indefinitely for vascular stent patency pen needle, diabetic 31 Inject 1 Injection 150 each 11/201705/14/2019 gauge x 5/16 needle under the skin daily. Inject 1 injection under the skin 4 times daily Vitamin D2 1,250 mcg Take 50,000 Units by 0 04/2502/23/2022 (50,000 unit) capsule mouth once a week. Sundays documented as of this encounter Progress Notes Melba Jarquin APRN, C.N.P., M.S.N. - 05/11/2019 3:59 PM CST CHIEF COMPLAINT/PURPOSE OF VISIT Patient seen in the Outpatient Recovery Unit. HISTORY OF PRESENT ILLNESS Mr. Walton is a 69 y.o. male who underwent and his vascular left iliac artery stent placement underthe care of Dr. Velásquez earlier today. He was seen in the outpatient surgical unit. He has recovered well postoperatively and has met discharge criteria. PHYSICAL EXAMINATION General: Resting comfortably in the bed. No acute distress. Alert and oriented times three. Skin: Right groin with surgical dressing intact moderate amount of strike through noted. No induration. Vessels: Bilateral lower extremity distal peripheral vessels with audible Doppler signals at the dorsalis pedis and posterior tibial locations IMPRESSION/REPORT/PLAN Mr. Walton has recovered well from his surgical procedure. After Visit Summary and Brief Operative Note were given. Postoperative instructions were reviewed. He has the contact information for Dr. Velásquez's surgical service should any questions or concerns arise. Surgical dressings should remain in place for 24 hours. Aspirin was continued perioperatively. Plavix was continued postprocedurely. Follow-up will be coordinated with Dr. Velásquez in 3-4 months. ORIAL SPECIALIST documented in this encounter OR Notes Op Note - Kemar Velásquez M.B.B.S. - 05/11/2019 1:16 PM CST FULL OP NOTE Procedure(s) (LRB): 1. Ultrasound guided access to the right common femoral artery and placement of a 6fr sheath. 2. Abdominal aortogram and pelvic angiogram 3. Left external iliac artery stenting with a 7x40mm Innova stent, post-dilated with a 7mm balloon. 4. Right groin access site closure with a perclose device (Left) Surgeon(s) and Role: * Kemar Velásquez M.B.B.S. - Primary * Betty Larkin M.D., M.P.H. - Shipyard Supervisor * Kasey Herr M.D. - Shipyard Supervisor Anesthesia Type Monitored anesthesia care Pre-operative Diagnosis Atherosclerosis Of [place] Arteries Of Left Leg With Ulceration Of Unspecified Site (HCC) Post-operative Diagnosis Atherosclerosis Of [place] Arteries Of Left Leg With Ulceration Of Unspecified Site (HCC) Findings As expected. Complications None Description of Procedure Patient was brought to the operating room and placed in the supine position. Under monitored anesthesia care, both groins were prepped and draped and time out was performed. Ultrasound guided access to the right common femoral artery was obtained. A 4 fr sheath was placed and an aortogram performed. This showed patent aorta and right iliac arterial system but a critical stenosis of the left external iliac artery distal to a previously placed VBX stent. Heparin was given, the lesion crossed with a floppy glidewire and exchanged for an Amplatz wire. A 6x45 cm Ang 0 sheath was placed. The stenosis was treated with a 7x40mm Innova stent, post-dilated with a 7mm balloon. Post-treatment angiography showed complete resolution of the lesion, and brisk flow into the proximal femoral system. All the hardware was removed, access site closed with a perclose device and protaminegiven. Specimens None Drains None Estimated Blood Loss 25 mL Implants Implant Name Type Inv. Item Serial No. Regional Training Manager Lot No. LRB No. Used Action STNT INNOVA OTW [id number] - [id number] Vascular Stent STNT INNOVA OTW [id number] [employer] [id number] Left 1 Implanted Amy Renee ORIAL SPECIALIST Brief Op Note - Betty Larkin M.D., M.P.H. - 05/11/2019 1:16 PM EDITORIAL SPECIALIST BRIEF OP NOTE Procedure(s) (LRB): IR ENDOVASCULAR ANGIOPLASTY STENT ILIAC LOWER EXTREMITY, right femoral access. (Left) Surgeon(s) and Role: * Kemar Velásquez M.B.B.S. - Primary * Betty Larkin M.D., M.P.H. - Shipyard Supervisor * Kasey Herr M.D. - Shipyard Supervisor Anesthesia Type Monitored anesthesia care Pre-operative Diagnosis Atherosclerosis Of [place] Arteries Of Left Leg With Ulceration Of Unspecified Site (HCC) Post-operative Diagnosis Atherosclerosis Of [place] Arteries Of Left Leg With Ulceration Of Unspecified Site (HCC) Findings Stenosis noted at the distal aspect of the previously placed external iliac stent. This was crossed and a 7x40 mm Innova (bare self-expanding) stent was placed and posted to 7mm. Excellent flow on completion angio. Complications None Specimens None Drains None Estimated Blood Loss 25 mL Implants Implant Name Type Inv. Item Serial No. Regional Training Manager Lot No. LRB No. Used Action STNT INNOVA OTW [id number] - [id number] Vascular Stent STNT INNOVA OTW [id number] [employer] [id number] Left 1 Implanted LOWER EXTREMITY PVI Side of intervention: Left Indication:claudication Pathology: occlusive disease Primary access: Right Femoral retrograde to antegrade Largest Sheath size: 6 Fr Guidance: ultrasound and fluoroscopy Closure device: Perclose, successful: Yes Other access: No Fluoro Time: 4.8 min DAP: 12.27 Contrast volume: 7 mL Patent Outflow Arteries at Completion Proximal: Superficial femoral artery and Profunda femoris artery Distal: Not imaged TASC Classification: Aorto-iliac: A Arteries Treated: Artery treated: External iliac Prior Tx Site?: stent Artery calcification: focal Technical result: Successful Total treatment length: 4 cm Occlusion length (enter zero for stenosis only): 0 cm Treatment type: Stent, bare metal Adjuncts: none Popliteal aneurysm: no Additional Vessels Treated? No Betty Larkin M.D., M.P.H. ORIAL SPECIALIST documented in this encounter Plan of Treatment Pending Results Name Type Priority Associated Diagnoses Date/Ti me IR ENDOVASCULAR Imaging RAD - Routine Atherosclerosis Of 05/11 2:09 ANGIOPLASTY STENT (most inpatients [place] Arteries Of Left PM EDITORIAL SPECIALIST ILIAC LOWER and all Leg With Ulceration Of EXTREMITY outpatients) Unspecified Site (HCC) documented as of this encounter Procedures Procedure Name Priority Date/Time Associated Diagnosis Comme nts GLUCOSE POCT, B Routine 05/11/2019 6:29 Results f or PM EDITORIAL SPECIALIST this procedure are in the results section. GLUCOSE POCT, B Routine 05/11/2019 4:17 Results f or PM EDITORIAL SPECIALIST this procedure are in the results section. GLUCOSE POCT, B Routine 05/11/2019 2:18 Results f or PM EDITORIAL SPECIALIST this procedure are in the results section. IR ENDOVASCULAR RAD - Routine 05/11/2019 2:09 Atherosclerosis Of ANGIOPLASTY STENT (most inpatients PM EDITORIAL SPECIALIST [place]teries Of ILIAC LOWER and all Left Leg With EXTREMITY outpatients) Ulceration Of Unspecified Site (HCC) ACT, POCT, B Routine 05/11/2019 1:46 Results for PM EDITORIAL SPECIALIST this procedure are in the results section. ADULT OXYGEN Routine 05/11/2019 THERAPY 10:15 AM EDITORIAL SPECIALIST EXTUBATION Routine 05/11/2019 10:15 AM EDITORIAL SPECIALIST GLUCOSE POCT, B Routine 05/11/2019 Results for 10:12 AM EDITORIAL SPECIALIST this procedure are in the results section. documented in this encounter Results Glucose, POCT (05/11/2019 6:29 PM EDITORIAL SPECIALIST) Analysis Performed At Patho logist Time Signature Glucose, POCT, 119 70 - 140 05/11/2019 [facility] B mg/dL 6:37 PM EDITORIAL SPECIALIST Site Capillary 05/11/2019 PCLX 6:37 PM EDITORIAL SPECIALIST Specimen Anatomical Collection Method Collection Time Receive d Time (Source) Location / / Volume Laterality Blood 05/11/2019 6:29 PM 9 6:37 EDITORIAL SPECIALIST PM EDITORIAL SPECIALIST Unknown Provider LAB POCT ORDERABLES-MANUAL Performing Organization Address City/[facility] Phon e Number [facility] [address] [place] [address] [place] [address] [place] [facility] [address] [facility] Glucose, POCT (05/11/2019 4:17 PM EDITORIAL SPECIALIST) Analysis Performed At Patho logist Time Signature Glucose, POCT, 112 70 - 140 05/11/2019 [facility] B mg/dL 4:19 PM EDITORIAL SPECIALIST Site Capillary 05/11/2019 [facility] 4:19 PM EDITORIAL SPECIALIST Specimen Anatomical Collection Method Collection Time Receive d Time (Source) Location / / Volume Laterality Blood 05/11/2019 4:17 PM 9 4:20 EDITORIAL SPECIALIST PM EDITORIAL SPECIALIST Unknown Provider LAB POCT ORDERABLES-MANUAL Performing Organization Address City/[facility] Phon e Number [facility] [address] [place] [address] [place] [address] [place] [facility] [address] [facility] Glucose, POCT (05/11/2019 2:18 PM EDITORIAL SPECIALIST) Analysis Performed At Patho logist Time Signature Glucose, POCT, 115 70 - 140 05/11/2019 [facility] B mg/dL 2:20 PM EDITORIAL SPECIALIST Site Capillary 05/11/2019 [facility] 2:20 PM EDITORIAL SPECIALIST Specimen Anatomical Collection Method Collection Time Receive d Time (Source) Location / / Volume Laterality Blood 05/11/2019 2:18 PM 9 2:20 EDITORIAL SPECIALIST PM EDITORIAL SPECIALIST Unknown Provider LAB POCT ORDERABLES-MANUAL Performing Organization Address City/[facility] Phon e Number [facility] [address] [place] [address] [place] [address] [place] [facility] [address] (ABNORMAL) ACT (Activated Clotting Time), POCT (05/11/2019 1:46 PM EDITORIAL SPECIALIST) P athologist Signature Activated 296 (H) 84 - 139 05/11/2019 [facility] Clotting Time, sec 1:52 PM EDITORIAL SPECIALIST POCT Specimen Anatomical Collection Method Collection Time Receive d Time (Source) Location / / Volume Laterality Blood 05/11/2019 1:46 PM 9 1:52 EDITORIAL SPECIALIST PM EDITORIAL SPECIALIST Unknown Provider LAB POCT ORDERABLES - DEVICE Performing Organization Address City/State/ZIP Code Phon e Number [facility]OC [facility] [address] [place], [place] [address] [place] [address] [place] [facility] [address] (ABNORMAL) Glucose, POCT (05/11/2019 10:12 AM EDITORIAL SPECIALIST) P athologist Signature Glucose, POCT, 160 (H) 70 - 140 05/11/2019 [facility] B mg/dL 10:41 AM EDITORIAL SPECIALIST Specimen Anatomical Collection Method Collection Time Receive d Time (Source) Location / / Volume Laterality Blood 05/11/2019 10:12 05/11/2019 AM EDITORIAL SPECIALIST 10:42 AM EDITORIAL SPECIALIST Unknown Provider LAB POCT ORDERABLES-MANUAL Performing Organization Address City/[facility] Phon e Number [facility] [address] [place] [address] [place] [address] [place] [facility] [address] documented in this encounter Visit Diagnoses Diagnosis Atherosclerosis Of [place] Arteries Of [place] ft Leg With Ulceration Of Unspecified Site (HCC) - Primary Atherosclerosis Of [place] Arteries Of [place] ft Leg With Ulceration Of Unspecified Site (HCC) documented in this encounter Admitting Diagnoses Diagnosis Atherosclerosis Of [place] Arteries Of [place] ft Leg With Ulceration Of Unspecified Site (HCC) documented in this encounter Administered Medications Inactive Administered Medications - up to 3 most recent administrations Medication Order MAR Action Action Date Dose Rate Site acetaminophen tablet 1,000 mg Given 05/11/2019 10:34 AM EDITORIAL SPECIALIST 1,00 0 mg (TYLENOL) 1,000 mg, oral, Once, On Tue05/11/19 at 1030, For 1 dose, Pre-Op acetaminophen tablet 1,000 mg (TYLENOL) Given 05/11/2019 4:38 PM EDITORIAL SPECIALIST 1,000 mg 1,000 mg, oral, Once as needed, other, If patient has not received in the previous 6 hours, Starting on Tue05/11/19 at 1015, For 1 dose, PACU (only), Oral unless RASS less than -1 or nausea/vomiting. Do not use if given in last 6 hours diazePAM tablet 5 mg (VALIUM) Given 05/11/2019 5:50 PM EDITORIAL SPECIALIST 5 mg 5 mg, oral, Once as needed, anxiety, muscle spasms, Agitation during bedrest, Starting on Tue05/11/19 at 1409, For 1 dose, Pre-Op electrolyte-A solution Continued from OR 05/11/2019 2:10 PM EDITORIAL SPECIALIST 20 mL/hr 20 mL/hr (PLASMA-LYTE A) 20 mL/hr, intravenous, Continuous, Starting on Tue05/11/19 at 1400, PACU & Post-Op insulin aspart U-100 Given 05/11/2019 10:13 AM EDITORIAL SPECIALIST 2 Units Right Lower Abdomen injection 0-8 Units (NovoLOG FlexPen) 0-8 Units, subcutaneous, Every 2 hour PRN, high blood sugar, Nurse to determine and administer dose., Starting on Tue05/11/19 at 1007, For 2 doses, Pre-Op, Nurse to administer Aspart (Novolog) Insulin subcutaneous as needed every 2 hours for up to 2 doses per correction scale. First dose STAT. Do not administer a correction Insulin dose if glucose is greater than 140 mg/dL and a) It is within 2 hours of any rapid acting or short acting Insulin and/or b) the patient has consumed sugar or carbohydrate containing food or beverage within the past 4 hours. For glucose less than or equal to 70 mg/dL - initiate treatment of hypoglycemia., Insulin Aspart: Correction Scale Insulin (For Diabetes Mellitus diagnosis), 71 - 139: 0 units, 140 - 179: 2 units, 180 - 219: 4 units, 220 - 259: 6 units, 260 - 299: 8 units, Greater than or equal to 300: Call provider managing diabetes mupirocin 2 % nasal ointment 1 applicati on (BACTROBAN) 1 application, each nostril, 2 times vero ly, First dose on Tue05/11/19 at 2100, For 5 days, Apply to each nare. After applic ation, press nostrils together and release repeatedly for 1 minute to spread ointment throughout the nares. NaCl 0.9% infusion New Bag 05/11/2019 10:28 AM EDITORIAL SPECIALIST 128 mL/hr 128 mL/hr 1-500 mL/hr, intravenous, Continuous, Starting on Tue05/11/19 at 1015, Pre-Op, 1.5 mL/kg/hr - Stop 1 hour prior to angio documented in this encounter Active and Recently Administered Medications Times are shown in EDITORIAL SPECIALIST. Scheduled Medication Order 05/09/2019 05/10/2019 05/11/2019 acetaminophen tablet 1,000 mg (TYLENOL) (COMPLETED) 1034 (Given - Provider: Laila Kamara R.N.) 1,000 mg, oral, Once, On Tue05/11/19 at 1030, For 1 dose, Pre-O p ceFAZolin injection 2 g (ANCEF) (COMPLETED) 1304 (Given - Provider: Nayeli Camacho M.D., Ph.D.) 2 g, intravenous, Once, On Tue05/11/19 at 1230, For 1 dose, Intra-Op, Preoperatively within 1 hour prior to surgical incision If needed, reconstitute vial per package insert instructions. See IVAG for administration guidelines. , , Drug Rula toring Program: Pharmacist to adjust medication dosing based on indication and drug clearance factors., Indications: Prophylaxis, surgical mupirocin 2 % nasal ointment 1 application (BACTROBAN) 1843 ([facility] Hold - Provider: Transfer Provider, Automatic)1846 ([facility] Unhold - Provider: Transfer Provider, Automatic)1850 ([facility] Hold - Provider: Transfer Provider, Automatic)2244 ([facility] Unhold - Provider: Discharge Provider, Automatic) 1 application, each nostril, 2 times vero ly, First dose on Tue05/11/19 at 2100, For 5 days, Apply to each nare. After application, press nostrils together and release repeatedly for 1 minute to spread ointment throughout the nares. Continuous Medication Order 05/09/2019 05/10/2019 05/11/2019 dexMEDEtomidine 4 mcg/mL in NaCl 0.9% 100 mL infusion (PRECEDEX) (CANCELED) 1250 (New Bag - Provider: Nayeli Camacho M.D., Ph.D.)1256 (Rate/Dose Change - Provider: Nayeli Camacho M.D., Ph.D.)1345 (Stopped - Provider: Pam Kaur APRN, [facility]) 0.2-1.5 mcg/kg/hr ? 85.5 kg Dosing weight (4.275-32.0625 mL/hr, rounded to 4.27-32.06 mL/hr), intravenous, Continuous, Starting on Tue05/11/19 at 1130, Premix ba mcg in 100 mL, Initiate at: 0.2 mcg/kg/hr., Titrate at: 0.1 mcg/kg/hr ev sveta 10 min., Goal: RASS -1, Restriction Criteria (Pharmacy will review and approve if criteria met): INITIATED and MAINTAINED only in patients in the operating rooms or in the intensive care unit electrolyte-A solution (PLASMA-LYTE A) 1410 (Continued from OR - Provider: Mallika Gleason RFeiNFei) 20 mL/hr, intravenous, Continuous, Start ing on Tue05/11/19 at 1400, PACU & Post-Op NaCl 0.9% infusion 1028 (New Bag - Provider: Laila Kamara RJerad)1843 ([facility] Hold - Provider: Transfer Provider, Automatic)1846 ([facility] Unhold - Provider: Transfer Provider, Automatic)1850 ([facility] Hold - Provider: Transfer Provider, Automatic) 1-500 mL/hr, intravenous, Continuous, St arting on Tue05/11/19 at 1015, Pre-Op, 1.5 mL/kg/hr - Stop 1 hour prior to angio 2244 ([facility] Unhold - Provider: Discharge Provider, Automatic) phenylephrine 80 mcg/mL in NaCl 0.9% 250 mL infusion 1130 (Due)1843 ([facility] Hold - Provider: Transfer Provider, Automatic)1846 ([facility] Unhold - Provider: Transfer Provider, Automatic)1850 ([facility] Hold - Provider: Transfer Provider, Automatic)2244 ([facility] Unhold - Provider: Discharge Provider, Automatic) 0.5-1 mcg/kg/min ? 85.5 kg (32.0625-64.125 mL/hr, rounded to 32.1-64.1 mL/hr), intravenous, at 32.1-64.1 mL/hr, Continuous, Starting Tue05/11/19 at 1130, Premix ba mg in 250 mL, Patient Type: [place], initiate at: 0.5 mcg/kg/min., Tit rate at: 0.1 mcg/kg/min. every 5 min., Goal: MAP 60-80 PRN Medication Order 05/09/2019 05/10/2019 05/11/2019 acetaminophen tablet 1,000 mg (TYLENOL) (COMPLETED) 1630 (Given - Provider: Mallika Gleason RFeiNFei) 1,000 mg, oral, Once as needed, other, I f patient has not received in the previous 6 hours, Starting on Tue05/11/19 at 1015, For 1 dose, PACU (only), Oral unless RASS less than -1 or nausea/vomiting. Do not use if given in last 6 hours diazePAM tablet 5 mg (VALIUM) (COMPLETED) 1750 (Given - Provider: Mallika Gleason R.N.) 5 mg, oral, Once as needed, anxiety, mus mick spasms, Agitation during bedrest, Starting on Tue05/11/19 at 1409, For 1 dose, Pre-Op heparin 10 Units/mL in NaCl 0.9% 500 mL flush solution (COMPLETE D) 1347 (Given - Provider: Suzie ReneeB.B.S.) miscellaneous, Once in surgery, OR use o nly, Starting on Tue05/11/19 at 1229, For 1 dose, Intra-Op, *Flush/Irrigation use only* insulin aspart U-100 injection 0-8 Units (NovoLOG FlexPen) ([facility]) 1013 (Given - Provider: Laila Kamara RFeiNFei) 0-8 Units, subcutaneous, Every 2 hour NM N, high blood sugar, Nurse to determine and administer dose., Starting on Tue05/11/19 at 1007, For 2 doses, Pre-Op, Nurse to administer Aspart (Novolog) Insulin subcutaneous as needed every 2 hours for up to 2 doses per correction scale. First dose STAT. Do not administer a correction Insulin dose if glucose is greater than 140 mg/dL and a) It is within 2 hours of any rapid acting or short acting Ins ulin and/or b) the patient has consumed sugar or carbohydrate containing food or beverage within the past 4 hours. For glucose less than or equal to 70 mg/dL - in itiate treatment of hypoglycemia., Insul in Aspart: Correction Scale Insulin (For Diabetes Mellitus diagnosis), 71 - 139: 0 units, 140 - 179: 2 units, 180 - 219: 4 units, 220 - 259: 6 units, 260 - 299: 8 units, Greater than or equal to 300: Call provider managing alyssia finnegan iodixanol (VISIPAQUE) 106.7 mg/mL in NaCl 0.9% injection (COMPLE GERALD) 1349 (Given - Provider: Frankie ReneeB.S.) 300 mL, injection, Once in surgery, OR u se only, Starting on Tue05/11/19 at 1229, For 1 dose, Intra-Op lidocaine-bupivacaine 1%-0.25% infiltration injection 30 mL (COM PLETED) 1348 (Given - Provider: Betty Larkin M.D., M.P.H. - Comment: right groin) 30 mL, infiltration, Once in surgery, OR use only, Starting on Tue05/11/19 at 1229, For 1 dose, Intra-Op, Not for IV use documented in this encounter Additional Health Concerns Assessment Noted Time PHQ-9 Depression Total Score: 3 01/03/2018 10:38 AM CD T documented as of this encounter
--- OUTSIDE RECORDS SUMMARY | 2022-03-16 12:24 | XMS_ITS | Encounter Summary ---
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 Ultrasound guided [address] [place] [address] [address] [facility] common femoral artery [phone] [place], [place] and placement of a 6fr [id number] sheath. 2. Abdominal [phone] aortogram and p elvic (Work) angiogram 3. Left external iliac artery stenting with a 7x40mm Innova stent, post-dilated wi th a 7mm balloon. 4. Rig ht groin access site tatyana sure with a perclose tim ce Social History Tobacco Use Types Packs/Day Years [...] How often do you attend taoist or amish services? 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 documented as of this encounter Last Filed Vital Signs Vital Sign Reading Time Taken Comments Blood Pressure 132/74 05/11/2019 2:15 PM DUMPLING MACHINE OPERATOR Pulse 72 05/11/2019 2:15 PM DUMPLING MACHINE OPERATOR Temperature 36.6 ??C (97.9 ??F) 05/11/2019 2:10 PM DUMPLING MACHINE OPERATOR Respiratory Rate 13 05/11/2019 2:15 PM DUMPLING MACHINE OPERATOR Oxygen Saturation 92% 05/11/2019 2:15 PM DUMPLING MACHINE OPERATOR Inhaled Oxygen Concentration - - Weight 85.5 kg (188 lb 7.9 oz) 05/11/2019 7:20 AM DUMPLING MACHINE OPERATOR Height 175 cm (5' 8.9) 05/11/2019 7:20 AM DUMPLING MACHINE OPERATOR Body Mass Index 27.92 05/11/2019 7:20 AM DUMPLING MACHINE OPERATOR documented in this encounter Medications at Time [...] hours oxyCODONE-acetaminophen TAKE ONE TABLET BY 0 /05/08/2020 (PERCOCET) 5-325 mg per MOUTH TWICE A [...] XIAO PLUS for testing blood 600 strip 10/25/19 19 01/17/2020 TEST STRP strips sugars [...] as of this encounter Progress Notes Melba Jarquin, JULIÁN, C.N.P., M.S.N. - 05/11/2019 3:59 PM CST [...] coordinated with Dr. Velásquez in 3-4 months. LING MACHINE OPERATOR documented in this encounter OR Notes Op [...] Primary * Betty Larkin M.D., M.P.H. - Manager Android * Kasey Herr M.D. 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 Item Serial No. Lan/Wan Engineer Lot No. LRB No. Used Action STNT INNOVA OTW [id number] - [id number] Vascular Stent STNT INNOVA OTW [id number] [employer] [id number] Left 1 Implanted Amy Renee LING MACHINE OPERATOR Brief Op Note - Betty Larkin M.D., M.P.H. - 05/11/2019 1:16 PM DUMPLING MACHINE OPERATOR BRIEF OP NOTE Procedure(s) (LRB): IR ENDOVASCULAR ANGIOPLASTY STENT ILIAC LOWER EXTREMITY, right femoral access. (Left) Surgeon(s) and Role: * Kemar Velásquez M.B.B.S. - Primary * Betty Larkin M.D., M.P.H. - Manager Android * Kasey Herr M.D. 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 Item Serial No. Lan/Wan Engineer Lot No. LRB No. Used Action STNT INNOVA OTW [id number] - [id number] Vascular Stent STNT INNOVA OTW [id number] [employer] [id number] Left 1 Implanted LOWER EXTREMITY PVI Side [...] Vessels Treated? No Betty Larkin M.D., M.P.H. LING MACHINE OPERATOR documented in this encounter Plan of Treatment Pending Results Name Type Priority Associated Diagnoses Date/Ti mn IR ENDOVASCULAR Imaging RAD - Routine Atherosclerosis Of 05/11 2:09 ANGIOPLASTY STENT (most inpatients Venetie Ira Arteries Of Left PM DUMPLING MACHINE OPERATOR ILIAC LOWER and all Leg With Ulceration Of EXTREMITY outpatients) Unspecified Site (HCC) documented as of this encounter Procedures Procedure Name Priority Date/Time Associated Diagnosis Comme nts GLUCOSE POCT, B Routine 05/11/2019 6:29 Results f or PM DUMPLING MACHINE OPERATOR this procedure are in the results section. GLUCOSE POCT, B Routine 05/11/2019 4:17 Results f or PM DUMPLING MACHINE OPERATOR this procedure are in the results section. GLUCOSE POCT, B Routine 05/11/2019 2:18 Results f or PM DUMPLING MACHINE OPERATOR this procedure are in the results section. IR ENDOVASCULAR RAD - Routine 05/11/2019 2:09 Atherosclerosis Of ANGIOPLASTY STENT (most inpatients PM DUMPLING MACHINE OPERATOR Venetie Ira Arteries Of ILIAC LOWER and all Left Leg With EXTREMITY outpatients) Ulceration Of Unspecified Site (HCC) ACT, POCT, B Routine 05/11/2019 1:46 Results for PM DUMPLING MACHINE OPERATOR this procedure are in the results section. ADULT OXYGEN Routine 05/11/2019 THERAPY 10:15 AM DUMPLING MACHINE OPERATOR EXTUBATION Routine 05/11/2019 10:15 AM DUMPLING MACHINE OPERATOR GLUCOSE POCT, B Routine 05/11/2019 Results for 10:12 AM DUMPLING MACHINE OPERATOR this procedure are in the results section. documented in this encounter Results Glucose, POCT (05/11/2019 6:29 PM DUMPLING MACHINE OPERATOR) Analysis Performed At Patho logist Time Signature Glucose, POCT, 119 70 - 140 05/11/2019 [facility] B mg/dL 6:37 PM DUMPLING MACHINE OPERATOR Site Capillary 05/11/2019 [facility] 6:37 PM DUMPLING MACHINE OPERATOR Specimen Anatomical Collection Method Collection Time Receive d Time (Source) Location / / Volume Laterality Blood 05/11/2019 6:29 PM 9 6:37 DUMPLING MACHINE OPERATOR PM DUMPLING MACHINE OPERATOR Unknown Provider LAB POCT ORDERABLES-MANUAL Performing Organization Address City/[facility]/ZIP [facility] [place] Number POC [facility] [address] [place] [address] [place] [address] [place] [facility] [address] Glucose, POCT (05/11/2019 4:17 PM DUMPLING MACHINE OPERATOR) Analysis Performed At Patho logist Time Signature Glucose, POCT, 112 70 - 140 05/11/2019 [facility] B mg/dL 4:19 PM DUMPLING MACHINE OPERATOR Site Capillary 05/11/2019 [facility] 4:19 PM DUMPLING MACHINE OPERATOR Specimen Anatomical Collection Method Collection Time Receive d Time (Source) Location / / Volume Laterality Blood 05/11/2019 4:17 PM 9 4:20 DUMPLING MACHINE OPERATOR PM DUMPLING MACHINE OPERATOR Unknown Provider LAB POCT ORDERABLES-MANUAL Performing Organization Address City/[facility] Phon e Number POC [facility] [address] [place] [address] [place] [address] [place] [facility] [address] Glucose, POCT (05/11/2019 2:18 PM DUMPLING MACHINE OPERATOR) Analysis Performed At Patho logist Time Signature Glucose, POCT, 115 70 - 140 05/11/2019 [facility] B mg/dL 2:20 PM DUMPLING MACHINE OPERATOR Site Capillary 05/11/2019 [facility] 2:20 PM DUMPLING MACHINE OPERATOR Specimen Anatomical Collection Method Collection Time Receive d Time (Source) Location / / Volume Laterality Blood 05/11/2019 2:18 PM 9 2:20 DUMPLING MACHINE OPERATOR PM DUMPLING MACHINE OPERATOR Unknown Provider LAB POCT ORDERABLES-MANUAL Performing Organization Address City/[facility] Phon e Number POC [facility] [address] [place] [address] [place] [address] [place] [facility] [address] (ABNORMAL) ACT (Activated Clotting Time), POCT (05/11/2019 1:46 PM DUMPLING MACHINE OPERATOR) P athologist Signature Activated 296 (H) 84 - 139 05/11/2019 PCSM Clotting Time, sec 1:52 PM DUMPLING MACHINE OPERATOR POCT Specimen Anatomical Collection Method Collection Time Receive d Time (Source) Location / / Volume Laterality Blood 05/11/2019 1:46 PM 9 1:52 DUMPLING MACHINE OPERATOR PM DUMPLING MACHINE OPERATOR Unknown Provider LAB POCT ORDERABLES - DEVICE Performing Organization Address City/[facility]/ZIP [facility] Phon [place] Number POC [facility]ST [facility] [address] [place], [place] [address] [place] [address] [place] [facility] [address] (ABNORMAL) Glucose, POCT (05/11/2019 10:12 AM DUMPLING MACHINE OPERATOR) athologist Signature Glucose, POCT, 160 (H) 70 - 140 05/11/2019 [facility]CLX B mg/dL 10:41 AM DUMPLING MACHINE OPERATOR Specimen Anatomical Collection Method Collection Time Receive d Time (Source) Location / / Volume Laterality Blood 05/11/2019 10:12 05/11/2019 AM DUMPLING MACHINE OPERATOR 10:42 AM DUMPLING MACHINE OPERATOR Unknown Provider LAB POCT ORDERABLES-MANUAL Performing Organization Address City/[facility] Phon e Number POC [facility] [address] [place] [address] [place] [address] [place] [facility] [address] documented in this encounter Visit Diagnoses Diagnosis Atherosclerosis Of Venetie Ira Arteries Of Le ft Leg With Ulceration Of Unspecified Site (HCC) - Primary Atherosclerosis Of Venetie Ira Arteries Of Le ft Leg With Ulceration Of Unspecified Site (HCC) Atherosclerosis Of Venetie Ira Arteries Of Le ft Leg With Ulceration Of Unspecified Site (HCC) documented in this encounter Admitting Diagnoses Diagnosis Atherosclerosis Of Venetie Ira Arteries Of Le ft Leg With Ulceration Of Unspecified Site (HCC) documented in this encounter Administered Medications Inactive Administered Medications - up to 3 most recent administrations Medication Order MAR Action Action Date Dose Rate Site acetaminophen tablet 1,000 mg Given 05/11/2019 10:34 AM DUMPLING MACHINE OPERATOR 1,00 0 mg (TYLENOL) 1,000 mg, oral, Once, On Tue05/11/19 at 1030, For 1 dose, Pre-Op acetaminophen tablet 1,000 mg (TYLENOL) Given 05/11/2019 4:38 PM DUMPLING MACHINE OPERATOR 1,000 mg 1,000 mg, oral, Once as needed, other, If patient has not received in the previous 6 hours, Starting on Tue05/11/19 at 1015, For 1 dose, PACU (only), Oral unless RASS less than -1 or nausea/vomiting. Do not use if given in last 6 hours diazePAM tablet 5 mg (VALIUM) Given 05/11/2019 5:50 PM DUMPLING MACHINE OPERATOR 5 mg 5 mg, oral, Once as needed, anxiety, muscle spasms, Agitation during bedrest, Starting on Tue05/11/19 at 1409, For 1 dose, Pre-Op electrolyte-A solution Continued from OR 05/11/2019 2:10 PM DUMPLING MACHINE OPERATOR 20 mL/hr 20 mL/hr (PLASMA-LYTE A) 20 mL/hr, intravenous, Continuous, Starting on Tue05/11/19 at 1400, PACU & Post-Op heparin 10 Units/mL in NaCl 0.9% 500 mL flush Given 1:47 PM DUMPLING MACHINE OPERATOR 100 mL solution miscellaneous, Once in surgery, OR use only, Starting on Tue05/11/19 at 1229, For 1 dose, Intra-Op, *Flush/Irrigation use only* insulin aspart U-100 Given 05/11/2019 10:13 AM DUMPLING MACHINE OPERATOR 2 Units Right Lower Abdomen injection 0-8 [...] equal to 300: Call provider managing diabetes iodixanol (VISIPAQUE) 106.7 mg/mL in NaCl 0.9% Given 1 07/12/2018 1:49 PM DUMPLING MACHINE OPERATOR 22 mL injection 300 mL, injection, Once in surgery, OR use only, Starting on Tue05/11/19 at 1229, For 1 dose, Intra-Op lidocaine-bupivacaine 1%-0.25% infiltration Given 05/11/2019 1:4 8 PM DUMPLING MACHINE OPERATOR 10 mL injection 30 mL 30 mL, infiltration, Once in surgery, OR use only, Starting on Tue05/11/19 at 1229, For 1 dose, Intra-Op, Not for IV use mupirocin 2 % nasal ointment 1 applicati on (BACTROBAN) 1 application, each nostril, 2 times vero ly, First dose on Tue05/11/19 at 2100, For 5 days, Apply to each nare. After applic ation, press nostrils together and release repeatedly for 1 minute to spread ointment throughout the nares. NaCl 0.9% infusion New Bag 05/11/2019 10:28 AM DUMPLING MACHINE OPERATOR 128 mL/hr 128 mL/hr 1-500 mL/hr, intravenous, Continuous, Starting on Tue05/11/19 at 1015, Pre-Op, 1.5 mL/kg/hr - Stop 1 hour prior to angio documented in this encounter Active and Recently Administered Medications Times are shown in DUMPLING MACHINE OPERATOR. Scheduled Medication Order 05/09/2019 05/10/2019 05/11/2019 acetaminophen [...] 2 % nasal ointment 1 application (BACTROBAN) 1842 ([facility] Hold - Provider: Transfer Provider, Automatic)1845 ([facility] Unhold - Provider: Transfer Provider, Automatic)1850 ([facility] Hold - Provider: Transfer Provider, Automatic)2244 ([facility] Unhold - Provider: Discharge Provider, Automatic) [...] Ph.D.)1345 (Stopped - Provider: Pam Kaur APRN, [facility]) 0.2-1.5 mcg/kg/hr ? 85.5 kg Dosing weight [...] (Continued from OR - Provider: Mallika Gleason R.NFei) 20 mL/hr, intravenous, Continuous, Start ing on Tue05/11/19 at 1400, PACU & Post-Op NaCl 0.9% infusion 1028 (New Bag - Provider: Laila Kamara RJerad)184 ([facility] Hold - Provider: Transfer Provider, Automatic)184 ([facility] Unhold - Provider: Transfer Provider, Automatic)1850 ([facility] Hold - Provider: Transfer Provider, Automatic) 1-500 mL/hr, intravenous, Continuous, St arting on Tue05/11/19 at 1015, Pre-Op, 1.5 mL/kg/hr - Stop 1 hour prior to angio 2244 ([facility] Unhold - Provider: Discharge Provider, Automatic) phenylephrine 80 mcg/mL in NaCl 0.9% 250 mL infusion 1130 (Due)1843 ([facility] Hold - Provider: Transfer Provider, Automatic)1846 ([facility] Unhold - Provider: Transfer Provider, Automatic)1850 ([facility] Hold - Provider: Transfer Provider, Automatic)2244 ([facility] Unhold - Provider: Discharge Provider, Automatic) [...] 05/11/2019 acetaminophen tablet 1,000 mg (TYLENOL) (COMPLETED) 1638 (Given - Provider: Mallika Gleason RFeiNFei) 1,000 mg, oral, Once as needed, other, I f patient has not received in the previous 6 hours, Starting on Tue05/11/19 at 1015, For 1 dose, PACU (only), Oral unless RASS less than -1 or nausea/vomiting. Do not use if given in last 6 hours diazePAM tablet 5 mg (VALIUM) (COMPLETED) 1750 (Given - Provider: Mallika Gleason R.NFei) 5 mg, oral, Once as needed, anxiety, mus mick spasms, Agitation during bedrest, Starting on Tue05/11/19 at 1409, For 1 dose, Pre-Op heparin 10 Units/mL in NaCl 0.9% 500 mL flush solution (COMPLETE D) 1347 (Given - Provider: Amy Renee) miscellaneous, Once in surgery, OR use o nly, Starting on Tue05/11/19 at 1229, For 1 dose, Intra-Op, *Flush/Irrigation use only* insulin aspart U-100 injection 0-8 Units (NovoLOG FlexPen) (CANC ELED) 1013 (Given - Provider: Laila Kamara R.N.) 0-8 Units, subcutaneous, Every 2 hour [place] N, high blood sugar, Nurse to determine [...] injection (COMPLE GERALD) 1349 (Given - Provider: Suzie ReneeB.B.S.) 300 mL, injection, Once in surgery, OR [...]
--- OUTSIDE RECORDS SUMMARY | 2022-03-16 12:24 | XMS_ITS | Encounter Summary ---
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 [facility] Procedures Lower Extremity Arterial (MIMI) - TCPO2 (Wound) [address] [place] [id number] Referral ID Status Reason Start Date Expiration Date Visits V isits Requested Authorized [id number] Canceled 06/26/2019 06/25/2020 1 1 Encounter Details Date Type Department Care Team Description 09/17/2019 Hospital Encounter Department of Kemar Velásquez [facility] (Clinic: Vascular Medicine in M.B.B.S. Appt Not Needed) [place], [place] [address] [facility] [address] [place] [phone] [phone] Social History Tobacco Use Types Packs/Day Years [...] week 03/25/2021 How often do you attend jainism or yazidism services? 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 Sundays documented as of this encounter Plan of Treatment Not on filedocumented as of this encounter Visit Diagnoses Not on filedocumented in this encounter Additional Health Concerns Assessment Noted Time PHQ-9 Depression Total Score: 3 01/03/2018 10:38 AM CD T documented as of this encounter
--- OUTSIDE RECORDS SUMMARY | 2022-03-16 12:24 | XMS_ITS | Encounter Summary ---
:1950 Author Organization [facility] Address [address] [place] [address] Care Team Providers Name Role Phone Unavailable Primary Care Provider Unavailable Reason for Visit Reason Comments Med Refill Encounter Details Date Type Department Care Team Description 08/15/2019 Refill Department of Family Medicine, Bambi Adler Med Refill [facility], in Renee Phillips M.D. [place] [address] [place] [address] [place] [address] [phone] Social History Tobacco Use Types Packs/Day Years [...] How often do you attend shinto or jainism services? 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 - 08/15/2019 9:06 AM CDT SUBJECTIVE CHIEF COMPLAINT / REASON FOR CALL Med Refill Information Discussed Called and spoke with patient. Patient states that the request was a mistake and that we can disregard it. PLAN Disposition/Recommendation: Disregard request for Humalog Information/Education: patient/caller able to teach back Caller agreeable to plan of care: yes The following references were used: other Patient Telephone Encounter - Abbey Arroyo - 08/15/2019 8:52 AM CDT Nurse review: Unable to forward request to provider; Not on med list Primary Provider: Renee Catalan M.D. Name of medication: Humalog Kwikpen Strength: 100 unit/ml Frequency: Inject 15 units under the skin 3 times a day with meals Quantity: 10 Last Refill: 06/01/19 Pharmacy: [facility] documented in this encounter Plan of Treatment Not on filedocumented as of this encounter Visit Diagnoses Not on filedocumented in this encounter Additional Health Concerns Assessment Noted Time PHQ-9 Depression Total Score: 3 01/03/2018 10:38 AM CD T documented as of this encounter
--- OUTSIDE RECORDS SUMMARY | 2022-03-16 12:24 | XMS_ITS | Encounter Summary ---
:1950 Author Organization [facility] Address [address] [place] [address] Care Team Providers Name Role Phone Unavailable Primary Care Provider Unavailable Reason for Visit Reason Onset Date Comments Med Refill 07/25/2019 Encounter Details Date Type Department Care Team Description 07/25/2019 Refill Department of Family Medicine, Bambi Adler, Med Refill [facility] [place] Renee Phillips M.D. [place] [address] [place] [address] [place] [address] [phone] Social History Tobacco Use Types Packs/Day Years [...] How often do you attend jew or pentecostal services? 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
--- OUTSIDE RECORDS SUMMARY | 2022-03-16 12:24 | XMS_ITS | Encounter Summary ---
:1950 Author Organization [facility] Address [address] [place] [address] Care Team Providers Name Role Phone Unavailable Primary Care Provider Unavailable Reason for Referral Outpatient (Routine) - Closed Specialty Diagnoses / Procedures Referred By Contact Refer red To Contact Diagnoses Peripheral Arterial Disease (HCC) Kemar Velásquez M.B.B.S. [facility] Procedures Lower Extremity Arterial (MIMI) - TCPO2 (Wound) [address] [place] [phone] Referral ID Status Reason Start Date Expiration Date Visits Requ ested Visits Authorized [id number] Closed 09/17/2019 09/16/2020 1 1 Outpatient (Routine) - Closed Specialty Diagnoses / Procedures Referred By Contact Refer red To Contact Vascular Surgery Kemar Velásquez M.B.B. S. [facility] [address] [place] [phone] Referral ID Status Reason Start Date Expiration Date Visits Requ ested Visits Authorized [id number] Closed 09/17/2019 09/16/2020 1 1 Outpatient (Routine) - Closed Specialty Diagnoses / Procedures Referred By Contact Refer red To Contact Nutrition Diagnoses Peripheral Arterial Disease (HCC) Tobacco Use Kemar Velásquez M.B.B.S. [facility] [address] [place] [phone] Referral ID Status Reason Start Date Expiration Date Visits Requ ested Visits Authorized [id number] Closed 09/17/2019 09/16/2020 1 1 Outpatient (Routine) - Closed Specialty Diagnoses / Procedures Referred By Contact Refer red To Contact Pulmonary Medicine / Diagnoses Peripheral Arterial Disease (HCC) [facility] M[facility]. [address] [place] [phone] Referral ID Status Reason Start Date Expiration Date Visits Requ ested Visits Authorized [id number] Closed 09/17/2019 09/16/2020 1 1 Reason for Visit Outpatient (Routine) - Closed Specialty Diagnoses / Procedures Referred By Contact Refer red To Contact Vascular Surgery Kemar Velásquez M.B.B. S. [facility] [address] [place] [phone] Referral ID Status Reason Start Date Expiration Date Visits Requ ested Visits Authorized [id number] Closed 06/26/2019 06/25/2020 1 1 Encounter Details Date Type Department Care Team Description 09/17/2019 Office Visit Division of Vascular and Kemar Velásquez Pe ripheral Arterial Disease (HCC) (Primary Dx); Endovascular Surgery in M.B.B.S. Tobacco Use [place], [place] [address] [place] [address] [place] [phone] Social History Tobacco Use Types Packs/Day Years [...] How often do you attend taoist or zoroastrian services? 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 - 09/17/2019 1:20 PM CDT I had the pleasure of meeting and Mrs. Walton with regards to his peripheral arterial disease. Most recently, in April of 2019, he underwent a left external iliac artery stent extension for critical stenosis. He recovered without any incident and has been walking without any difficulty his ABIon the left side has increased from 0.65-0.87. The stent is widely open on duplex ultrasound. So far, he has remained on dual anti-platelet therapy and a statin medication. Unfortunately he still has not quit smoking altogether. I also quizzed him on his day-to-day diet and it sounds like he isnot necessarily following a very healthy dietary regimen. He cooks most of his meals for himself. Lot of his diet comprises of fatty food types. I re-stressed the importance of quitting smoking altogether for long-term patency of his iliac stents. I also think he would benefit greatly from an expert consultation with our [place] dietitian for better education on his dietary habits. They are both agreeable to the plan and look forward to meeting with our head transfer clerk. I would like to see him back in 6 months with another set of vascular noninvasive imaging. documented in this encounter Plan of Treatment Scheduled Referrals Name Type Priority Associated Order Schedule Diagnoses Nicotine Dependence Outpatient Referral Routine Peripheral Art erial Expected: - Counseling consult Disease (HC C) 09/17/2019 (clinic) Tobacco Use (Approximate), Expires: 09/16/2022 Nutrition - Weight Outpatient Referral Routine Peripheral Katya rial Expected: management medical Disease (HCC) 09/17/2019 nutrition therapy Tobacco Use (Approxima te), consult (clinic) Expires: 09/16/2022 Vascular Surgery Outpatient Referral Routine Expe cted: office visit 03/19/2020 (clinic) (Approximate), Expires: 09/16/2022 documented as of this encounter Results Lower Extremity [...] focal stenosis, high-grade stenosis of the left PURCHASING ADMINISTRATOR, new and stable moderate stenosis of the proximal GINA. Kemar Reyes CV VASCULAR PROCEDURES US Lower Extremity Arteries Bilateral (08/04/2020 9:54 [...] osis. Stable elevated velocities of the right TELECOMMUNICATIONS FIELD TECHNICIAN without focal stenosis. 3. Stable stented left SFA without steno sis. 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 4. New high-grade stenosis of the left p roximal PURCHASING ADMINISTRATOR. Narrative 08/04/2020 10:59 AM CDT EXAM: US [...] osis. Stable elevated velocities of the right TELECOMMUNICATIONS FIELD TECHNICIAN without focal stenosis. 3. Stable stented left SFA without steno sis. 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 4. New high-grade stenosis of the left p roximal PURCHASING ADMINISTRATOR. Kemar ETIENNE US PROCEDURES US Aorta Iliac Arteries Left [...] Peripheral Arterial Disease (HCC) - Prim dat Tobacco Use Peripheral Arterial Disease (HCC) Peripheral Arterial Disease (HCC) Peripheral Arterial Disease (HCC) documented in this encounter Additional Health Concerns Assessment Noted Time PHQ-9 Depression Total Score: 3 01/03/2018 10:38 AM CD T documented as of this encounter
--- OUTSIDE RECORDS SUMMARY | 2022-03-16 12:24 | XMS_ITS | Encounter Summary ---
:1950 Author Organization [facility] Address [address] [place] [address] Care Team Providers Name Role Phone Unavailable Primary Care Provider Unavailable Encounter Details Date Type Department Care Team Description 09/14/2019 Clinical Communication Division of Vascular and Kemar Velásquez, Endovascular Surgery in [place], [place] [address] [facility] [address] [place] [phone] Social History Tobacco Use Types Packs/Day Years [...] week 03/25/2021 How often do you attend lutheran or jew services? Never 03/25/2021 Do you belong to any clubs or organizations such as lutheran N o 03/25/2021 groups, unions, fraternal or [...] or the highest technical, or vocational p [place] degree you have received? 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 In the past 14 [...] patient with known or possible COVID-19? no documented in this encounter Plan of Treatment Not on filedocumented as of this encounter Visit Diagnoses Not on filedocumented in this encounter Additional Health Concerns Assessment Noted Time PHQ-9 Depression Total Score: 3 01/03/2018 10:38 AM CD T documented as of this encounter
--- OUTSIDE RECORDS SUMMARY | 2022-03-16 12:24 | XMS_ITS | Encounter Summary ---
:1950 Author Organization [facility] Address [address] [place] [address] Care Team Providers Name Role Phone Unavailable Primary Care Provider Unavailable Encounter Details Date Type Department Care Team Description 05/04/2019 Hospital Encounter Department of Kemar Velásquez Atheros clerosis Of Laboratory Medicine M.B.B.S. [place] Arteries Of Left and Pathology, [address] [facility] Leg With Ulceration Of [facility], in [place], [place] Unspeci fied Site (HCC) [facility] [address] [place] [phone] [address] [facility] (Work) [place], [place] [phone] (Fax) [phone] Social History Tobacco Use Types Packs/Day Years [...] How often do you attend islam or pentecostal services? 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 mupirocin (BACTROBAN) 2 Apply 1 application 10 [...] mg tablet MOUTH EVERY DAY AT BEDTIME clopidogrel (PLAVIX) Take 300 mg by mouth 0 05/11/2019 300 mg tablet daily. clopidogrel (PLAVIX) 75 Take 1 tablet (75 mg 30 tablet 11 05/08/2020 mg tablet total) by mouth daily. Take indefinitely for vascular stent patency colchicine (COLCRYS) Take 1 tablet (0.6 mg 90 tablet 3 12/201805/10/2020 0.6 mg tablet total) by mouth daily. doxepin (SINEquan) 10 Take 10 mg by mouth 11 03/2005/11/2019 mg capsule at bedtime. doxepin (SINEquan) 10 TAKE ONE CAPSULE BY 90 capsule 3 02/0502/29/2020 mg capsule MOUTH AT BEDTIME gabapentin (NEURONTIN) Take 1 capsule (300 60 capsule 5 11/201705/11/2019 300 mg capsule mg total) by mouth 2 (two) times a day. gabapentin (NEURONTIN) Take 300 mg by mouth [...] Do not crush or chew. oxyCODONE (OxyCONTIN) Take 15 mg by mouth 0 10/0205/11/2019 20 mg 12 hr tablet every 12 (twelve) hours. oxyCODONE (ROXICODONE) Take 10 mg by mouth 0 03/1705/11/2019 10 mg IR tablet every 6 (six) hours as needed. for pain oxyCODONE (ROXICODONE) Take 10 mg by mouth [...] skin 4 times daily rOPINIRole (REQUIP) 2 Take 0.5 tablets (1 15 tablet 0 04/2105/11/2019 mg tablet mg total) by mouth at bedtime. rOPINIRole (REQUIP) 2 Take 2 mg by mouth 3 (three) times a day. Taking 1 in the AM 0 05/11/2019 mg tablet And 3 in the PM rOPINIRole (REQUIP) 3 TAKE ONE TABLET BY 0 201805/08/2020 mg tablet MOUTH EVERY DAY IN THE MORNING AND TAKE THREE TABLETS BY MOUTH EVERY DAY AT BEDTIME tiZANidine (ZANAFLEX) 4 TO ONE TABLET BY [...] Name Priority Date/Time Associated Diagnosis Comme nts STAPHYLOCOCCUS AUREUS, Routine 05/04/2019 1:05 Atherosclerosis Of Results for this PCR PM WELFARE CASE WORKER [place] Arteries Of procedure are in Left Leg With the results Ulceration Of section. Unspecified Site (HCC) MRSA CULTURE Routine 05/04/2019 1:04 Results for this PM WELFARE CASE WORKER procedure are i n the results section. documented in this encounter Results (ABNORMAL) Staphylococcus aureus Detection by Rapid PCR (05/04/2019 1:05 PM WELFARE CASE WORKER) Component Value Ref Range Test Analysis Performed Pathologis t Method Time At Signature Staphylococcus Swab, Nares 05/05/2019 DTL aureus PCR 3:44 PM WELFARE CASE WORKER Specimen Source Result Positive Not 05/05/2019 DTL (A) Applicable 3:44 PM WELFARE CASE WORKER Comment: ----ADDITIONAL INFORMATION---- This test was developed and its performa nce characteristics determined by [facility] in a manner consistent with CLIA requirements. This test has not been cleared or approved by the [place] and Drug Administration. Specimen Anatomical Collection Method Collection Time Receive d Time (Source) Location / / Volume Laterality Varies (Nares) 05/04/2019 1:05 PM 019 1:39 WELFARE CASE WORKER PM WELFARE CASE WORKER Kemar Redman.S. LAB MICROBIOLOGY - GENERAL O RDRKBLES Performing Organization Address City/[facility]/ZIP [facility] Phon e Number [facility] - [address] MRSA Culture (05/04/2019 1:04 PM WELFARE CASE WORKER) Analysis Performed At [facility] Time Signature MRSA Culture No growth 05/06/2019 DTL of MRSA 2:03 PM WELFARE CASE WORKER Specimen Anatomical Collection Method Collection Time Receive d Time (Source) Location / / Volume Laterality Nares 05/04/2019 1:04 PM 9 2:49 WELFARE CASE WORKER PM WELFARE CASE WORKER Comment: Specimen Source Site: SWAB Kemar MerchantS. LAB MICROBIOLOGY - GENERAL O OMERO Performing Organization Address City/[facility]/ZIP 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
--- OUTSIDE RECORDS SUMMARY | 2022-03-16 12:24 | XMS_ITS | Encounter Summary ---
:1950 Author Organization [facility] Address [address] [place] [address] Care Team Providers Name Role Phone Unavailable Primary Care Provider Unavailable Encounter Details Date Type Department Care Team Description 05/03/2019 Hospital Encounter Department of Kemar Velásquez, Katherine ral Arterial Disease (HCC); Radiology, Santiago Reyes Atherosclerosis Of [place] Arteries Of Le ft Leg With Ulceration Of Unspecified Site (HCC); Building, in [address] [place] [address] Atherosclerosis Of [place] Arteries Of Ex tremities With Intermittent Claudication Right Leg (HCC) [facility] [phone] [place] [address] [place], [place] (Work) [phone] Social History Tobacco Use Types Packs/Day Years [...] How often do you attend judaism or synagogue services? Never 03/25/2021 Do you [...] the highest level of school Associate degree: arsalanalivai muller, 04/30/2019 you have completed or the highest technical, or vocational p susan degree you have received? 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 Left Leg With Ulceration Of Unspecified Site (HCC) Atherosclerosis Of [place] Ar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 (HCC) documented in this encounter Results US Lower Extremity Arteries Bilateral (05/03/2019 8:44 AM FISH NET STRINGER) Anatomical Region Laterality Modality Lower Extremity, Ultrasound RST LOS, Ultrasound ARZ LOS, Rodríguez ateral Ultrasound Ultrasound FLA LOS, Procedural Specimen (Source) Anatomical Collection Method Collection Time Re ceived Time Location / / Volume Laterality 05/03/2019 9:35 AM FISH NET STRINGER Impressions 05/03/2019 9:42 AM FISH NET STRINGER 1. Stable mild right common femoral artery and profunda femoral artery stenosis. The right SFA including the stented port ions are patent without stenosis. 2. Previously seen left proximal SFA and PFA stenosis were not visualized and may be masked by the upstream left EIA s tenosis. 3. The stented left SFA is patent withou t stenosis. 4. Stable moderate left proximal GINA jose nosis. Narrative 05/03/2019 9:42 AM FISH NET STRINGER EXAM: US LOWER EXTREMITY ARTERIES BILATERAL Exam performed with color and spectral D oppler analysis. 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 Stable mild elevation in [facility] in the profunda femoral artery (182 cm/s, previously 181 cm/s), suggestive o f mild stenosis. The superficial femoral artery including the stented portion is patent without significant stenosis. The popliteal artery is patent without signi ficant stenosis. LEFT: ??Femoral endarterectomy. The comm on femoral artery is patent without stenosis. Previously seen elevated veloc ity in the proximal SFA and profunda femoral arteries was not noted on this m ay be masked by the proximal stenosis in the external iliac artery. The profunda femoral arteries patent. The remainder of the superficial femoral artery includ ing the stented segments are patent with low resistance waveforms throughout. The popliteal artery and posterior tibial arteries patent without stenosis. Stable moderate stenosis in the anterior tibial artery in the upper calf (167 cm/ s, previously 176 cm/s). Procedure Note Kristi Reid M.B.B.S., MTen[place]. - 05/03/20 19 EXAM: US LOWER EXTREMITY ARTERIES BILATE RAL Exam performed with color and spectral D oppler analysis. COMPARISON: 07/18/2018 FINDINGS RIGHT: Stable mild stenosis in the commo n femoral artery (192 cm/s, previously 218 cm/s). Stable mild elevation in [place] in the profunda femoral artery (182 cm/s, previously 181 cm/s), suggestive o f mild stenosis. The superficial femoral artery including the stented portion is patent without significant stenosis. The popliteal artery is patent without signi ficant stenosis. LEFT: Femoral endarterectomy. The common femoral artery is patent without stenosis. Previously seen elevated veloc ity in the proximal SFA and profunda femoral arteries was not noted on this m ay be masked by the proximal stenosis in the external iliac artery. The profunda femoral arteries patent. The remainder of the superficial femoral artery includ ing the stented segments are patent with low resistance waveforms throughout. The popliteal artery and posterior tibial arteries patent without stenosis. Stable moderate stenosis in the anterior tibial artery in the upper calf (167 cm/ s, previously 176 cm/s). IMPRESSION: 1. Stable mild right common femoral chani ry and profunda femoral artery stenosis. The right SFA including the stented port ions are patent without stenosis. 2. Previously seen left proximal SFA and PFA stenosis were not visualized and may be masked by the upstream left EIA s tenosis. 3. The stented left SFA is patent withou t stenosis. 4. Stable moderate left proximal GINA jose nosis. 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
--- OUTSIDE RECORDS SUMMARY | 2022-03-16 12:25 | XMS_ITS | Encounter Summary ---
:1950 Author Organization [facility] Address [address] [place] [address] Care Team Providers Name Role Phone Unavailable Primary Care Provider Unavailable Encounter Details Date Type Department Care Team Description 04/21/2018 Abstract [facility] ANGIE Pinon ea Provider, Historical [address] [place] [address] Social History Tobacco Use Types Packs/Day Years [...] week 03/25/2021 How often do you attend samaritan or baptist services? Never 03/25/2021 Do you belong to any clubs or organizations such as samaritan N o 03/25/2021 groups, unions, fraternal or [...] or slept in a intermediate (including now)? 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
--- OUTSIDE RECORDS SUMMARY | 2022-03-16 12:25 | XMS_ITS | Encounter Summary ---
:1950 Author Organization [facility] Address [address] [place] [address] Care Team Providers Name Role Phone Unavailable Primary Care Provider Unavailable Reason for Visit Reason Comments Med Refill Encounter Details Date Type Department Care Team Description 12/25/2018 Refill Department of Family Medicine, Bambi Adler Med Refill [facility], in [place] M.D. [place] [address] [place] [address] [place] [address] [phone] Social History Tobacco Use Types Packs/Day Years [...] week 03/25/2021 How often do you attend anabaptism or cheondoism services? Never 03/25/2021 Do you belong to any clubs or organizations such as anabaptism N o 03/25/2021 groups, unions, fraternal or [...] or slept in a longterm (including now)? 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
--- OUTSIDE RECORDS SUMMARY | 2022-03-16 12:25 | XMS_ITS | Encounter Summary ---
:1950 Author Organization [facility] Address [address] [place] [address] Care Team Providers Name Role Phone Unavailable Primary Care Provider Unavailable Encounter Details Date Type Department Care Team Description 07/18/2018 Ancillary Procedure Department of Vascular Social History [...] week 03/25/2021 How often do you attend mosque or zoroastrianism services? Never 03/25/2021 Do you belong to any clubs or organizations such as mosque N o 03/25/2021 groups, unions, fraternal or [...] or slept in a detention (including now)? 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 documented in this encounter Results Lower Arterial-Vascular Image Exam (07/18/2018 12:10 PM SPARK TESTER) Specimen (Source) Anatomical Collection Method Collection Time Re ceived Time Location / / Volume Laterality 07/18/2018 12:07 PM SPARK TESTER Narrative [facility] - 07/18/2018 12:28 PM SPARK TESTER This order has been created and auto-finalized [...]
--- OUTSIDE RECORDS SUMMARY | 2022-03-16 12:25 | XMS_ITS | Encounter Summary ---
:1950 Author Organization [facility] Address [address] [place] [address] Care Team Providers Name Role Phone Unavailable Primary Care Provider Unavailable Encounter Details Date Type Department Care Team Description 04/19/2019 Clinical Communication [facility] [place] [address] [place] [phone] Social History Tobacco Use Types Packs/Day Years [...] week 03/25/2021 How often do you attend temple or episcopalian services? Never 03/25/2021 Do you belong to any clubs or organizations such as temple N o 03/25/2021 groups, unions, fraternal or [...] slept in a nursing home (including now)? 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
--- OUTSIDE RECORDS SUMMARY | 2022-03-16 12:25 | XMS_ITS | Encounter Summary ---
:1950 Author Organization [facility] Address [address] [place] [address] Care Team Providers Name Role Phone Unavailable Primary Care Provider Unavailable Reason for Referral Outpatient (Routine) - Closed Specialty Diagnoses / Procedures Referred By Contact Refer red To Contact Diagnoses Peripheral Arterial Disease (HCC) Atherosclerosis Of [place] Arteries Of Left Leg With Ulceration Of Unspecified Site (HCC) Atherosclerosis Of [place] Ar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 (HCC) Kemar Velásquez M.B.B.S. 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 [facility] Procedures Lower Extremity Arterial (MIMI) - TCPO2 (Wound) MS STUDY EXT ARTERY > 2 LVLS TRAVIS [address] [place] [address] Referral ID Status Reason Start Date Expiration Date Visits Requ ested Visits Authorized [id number] Closed 07/18/2018 07/18/2019 1 1 Encounter Details Date Type Department Care Team Description 05/03/2019 Hospital Encounter Department of Kemar Velásquez Periphe ral Arterial Disease (HCC) (Primary Dx); Vascular Medicine Amy Atherosclerosis Of [place] Arteries Of Le ft Leg With Ulceration Of Unspecified Site (HCC); in [address] Atherosclerosis Of [place] Arteries Of Ex tremities With Intermittent Claudication Right Leg (HCC) [place], [place] [address] [facility] [address] [place], [place] [phone] (Work) [phone] Social History Tobacco Use Types Packs/Day Years [...] How often do you attend yarsani or yazidism services? 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 Left Leg With Ulceration Of Unspecified Site (HCC) Atherosclerosis Of [place] Ar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 (HCC) documented in this encounter Results Lower Extremity Arterial (MIMI) - TCPO2 (Wound) (05/03/2019 11:13 AM STRIPPING SHOVEL OILER) Anatomical Region Laterality Modality Other Specimen (Source) Anatomical Collection Method Collection Time Re ceived Time Location / / Volume Laterality 05/03/2019 9:53 AM STRIPPING SHOVEL OILER Narrative 05/03/2019 9:53 AM STRIPPING SHOVEL OILER Right: Doppler Waveforms: ? Normal at all levels evaluated. ?? Resting Index: ? MIMI (PT)- ??0 .75 ?MIMI (DP)- ??0.79 ?TBI - ??0.62 ?? TcPO2: ? Values as noted. ?? Left: Doppler Waveforms: ? Abnormal signals starting at or above the popliteal level. ?? Resting Index: ? MIMI (PT)- ??0.65 ?MIMI (DP)- ??0.69 ?TBI- ??0.52 ?? TcPO2: ? Values as noted. ?? Conclusions: Right: ??Moderate periphera l arterial disease likely at the aortoiliac level. TCPO2 is moderately reduced at all sites. ??Left: ??Moderate peripheral arterial disease likely at the aortoili ac level. TCPO2 is moderately reduced at all sites. ?? Exercise not done due to hypertension pr esent at rest. TcpO2 values may be lowered by edema, severe anemia, cellulitis, etc. ??If clinically appropriate, consider repeating the study after correctable c auses have resolved. ?? Compared to stud y on 18 July 2018, the ankle/brachial indices have de creased bilaterally. Procedure Note Glenn Mclain M.D. - 05/03/2019Forma tting of this note might be different from the original. Right: Doppler Waveforms: Normal at all levels evaluated. Resting Index: MIMI (PT)- 0.75 MIMI (DP)- 0.79 TBI- 0.62 TcPO2: Values as noted. Left: Doppler Waveforms: Abnormal signal s starting at or above the popliteal level. Resting Index: MIMI (PT)- 0.65 MIIM (DP)- 0.69 TBI- 0.52 TcPO2: Values as noted. Conclusions: Right: Moderate peripheral arterial disease likely at the aortoiliac level. TCPO2 is moderately reduced at all sites. Left: Moderate peripheral arterial disease likely at the aortoiliac level. TCPO2 is moderately reduced at all sites. Exercise not done due to hypertension pr esent at rest. TcpO2 values may be lowered by edema, severe anemia, cellulitis, etc. If clinically appropriate, consider repeating the study after correctable causes have resolved. Compared to study on 18 July 2018, the ankle/brachial indices have de creased bilaterally. Kemar Reyes CV VASCULAR PROCEDURES documented in this encounter Visit Diagnoses Diagnosis Peripheral Arterial Disease (HCC) - Prim dat Atherosclerosis Of [place] Arteries Of Le ft Leg With Ulceration Of Unspecified Site (HCC) Atherosclerosis Of [place] Arteries Of Ex tremities With Intermittent Claudication Right Leg (HCC) documented in this encounter Additional Health Concerns Assessment Noted Time PHQ-9 Depression Total Score: 3 01/03/2018 10:38 AM CD T documented as of this encounter
--- OUTSIDE RECORDS SUMMARY | 2022-03-16 12:25 | XMS_ITS | Encounter Summary ---
:1950 Author Organization [facility] Address [address] [place] [address] Care Team Providers Name Role Phone Unavailable Primary Care Provider Unavailable Reason for Visit Reason Comments Med Refill Encounter Details Date Type Department Care Team Description 10/24/2018 Refill Department of Family Medicine, Bambi Adler Med Refill [facility], in Renee Phillips M.D. [place] [address] [place] [address] [place] [address] [phone] Social History Tobacco Use Types Packs/Day Years [...] How often do you attend anabaptist or episcopalian services? 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
--- OUTSIDE RECORDS SUMMARY | 2022-03-16 12:25 | XMS_ITS | Encounter Summary ---
:1950 Author Organization [facility] Address [address] [place] [address] Care Team Providers Name Role Phone Unavailable Primary Care Provider Unavailable Reason for Visit Reason Comments Med Refill Encounter Details Date Type Department Care Team Description 03/27/2019 Refill Department of Family Medicine, Bambi Adler Med Refill [facility], in Renee Phillips M.D. [place] [address] [place] [address] [place] [address] [phone] Social History Tobacco Use Types Packs/Day Years [...] How often do you attend presybeterian or buddhist services? Never 03/25/2021 Do you belong to [...] or slept in a residential (including now)? 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 MBLY HAND documented in this encounter Plan of Treatment Not on filedocumented as of this encounter Visit Diagnoses Not on filedocumented in this encounter Additional Health Concerns Assessment Noted Time PHQ-9 Depression Total Score: 3 01/03/2018 10:38 AM CD T documented as of this encounter
--- OUTSIDE RECORDS SUMMARY | 2022-03-16 12:25 | XMS_ITS | Encounter Summary ---
:1950 Author Organization [facility] Address [address] [place] [address] Care Team Providers Name Role Phone Unavailable Primary Care Provider Unavailable Reason for Visit Reason Comments Med Refill Encounter Details Date Type Department Care Team Description 11/20/2018 Refill Department of Family Medicine, Bambi Adler Med Refill [facility], in Renee Phillips M.D. [place] [address] [place] [address] [place] [address] [phone] Social History Tobacco Use Types Packs/Day Years [...] How often do you attend evangelical or amish services? Never 03/25/2021 Do you [...] or slept in a mcc (including now)? 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
--- OUTSIDE RECORDS SUMMARY | 2022-03-16 12:25 | XMS_ITS | Encounter Summary ---
:[address] [facility] Address [address] [place] [address] Care Team Providers Name Role Phone Unavailable Primary Care Provider Unavailable Reason for Visit Reason Comments Med Refill Encounter Details Date Type Department Care Team Description 02/04/2019 Refill Department of Neurology in Yessy Cohen M.D., Med Refill [place], [place] M.P.H. [address] [facility] [address] [place] [address] [place] [id number] (Wo rk) Social History Tobacco Use Types [...] How often do you attend baptist or anabaptism services? Never 03/25/2021 Do you [...] slept in a group home (including now)? 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 8:13 PM FOLLOW UP REP documented as of this encounter Plan of Treatment Not on filedocumented as of this encounter Visit Diagnoses Not on filedocumented in this encounter Additional Health Concerns Assessment Noted Time PHQ-9 Depression Total Score: 3 01/03/2018 10:38 AM CD T documented as of this encounter
--- OUTSIDE RECORDS SUMMARY | 2022-03-16 12:25 | XMS_ITS | Encounter Summary ---
:1950 Author Organization [facility] Address [address] [place] [address] Care Team Providers Name Role Phone Unavailable Primary Care Provider Unavailable Reason for Visit Reason Comments Restless legs Last visit 02/16/18 Appointment Request (Routine) - Closed Specialty Diagnoses / Procedures Referred By Contact Refer red To Contact Neurology Referral ID Status Reason Start Date Expiration Date Visits Requ ested Visits Authorized [id number] Closed 02/16/2018 02/16/2019 1 1 Encounter Details Date Type Department Care Team Description 04/21/2018 Office Visit Department of Yessy Cohen, Restless L eg Syndrome (Primary Dx); Neurology in [place]., M.P.H. Neuropathy Peripheral [place], [place] [address] [place] [address] [phone] Social History Tobacco Use Types Packs/Day Years [...] How often do you attend shinto or denominational services? 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 - 04/21/2018 3:00 PM CST SUBJECTIVE CHIEF COMPLAINT / REASON FOR VISIT Onesimo Walton is a 68 y.o. male who presents for evaluation of Restless legs (Last visit 02/16/18). HISTORY OF PRESENT ILLNESS Patient returns today feeling about the same as we have a begun to wean his ropinirole from 4 mg b.i.d. to 2 mg. He has not had any worsening restless legs. Restless legs typically begin in the eveningbut sometimes the started as early as 3:00 p.m. He has been on gabapentin in the past for his diabetic neuropathy. His neuropathy does not really hurt very much to mostly numb now. Patient also had low ferritin at 46 and so he is taking iron. So that brings the treatment to 3 with the plan to eliminate the ropinirole. I discussed increasing the gabapentin to 300 mg b.i.d. at least if he had symptoms earlier in the day he could take a a dose earlier in the day. He was not agree with that plan. With symptoms get very bad then he takes oxycodone 5 mg. Patient also takes Cymbalta for depression and pain. Patient has a pain specialist in [place]. Past Medical History: Diagnosis Date ??? Bruit Carotid Artery bilateral without evidence of stenosis ??? Cataract ??? Dependence Nicotine ??? Depressive Disorder ??? Diabetes Mellitus NOS ??? Diabetes Mellitus Type 2 Peripheral Neuropathy (HCC) requiring insuling ??? Dysfunction Erectile ??? Gastroesophageal Reflux Disease ??? Gout ??? Hyperlipidemia ??? Hypertension Essential Primary ??? Insufficiency Renal ??? Other Specified Health Status ??? Pain Low Back Chronic ??? Peripheral Arterial Disease (HCC) ??? Restless Leg Syndrome ??? ST Elevation Myocardial Infarction Of Unspecified Site (HCC) ??? Stenosis Spinal lumbar spine ??? Transient Ischemic Attack 2009 without residua Past Surgical History: Procedure Laterality Date ??? ANGIOPLASTY/STENT ENDOVASCULAR FEMORAL AND/OR POPLITEAL ARTERY Left 04/04/2017 Left endovascular superficial femoral artery stent x 2. ??? ANGIOPLASTY/STENT ENDOVASCULAR ILIAC AND/OR FEMORAL AND/OR POPLITEAL AND/OR TIBIAL ARTERY Left 04/18/2018 Procedure: 1. Ultrasound-guided access to bilateral common femoral arteries. 2. Left SFA 3rd order vessel catheter placement 3. Left pelvic angiogram 4. Left lower extremity angio 5. Left external iliac artery angioplasty using a 6 mm balloon; Surgeon: Kemar Velásquez M.B.B.S.; Location: [facility] OR ??? ARTHROSCOPIC REPAIR OF ROTATOR CUFF Right 2004 ??? CARPAL TUNNEL RELEASE ??? CATARACT EXTRACTION AND INSERTION OF INTRAOCULAR LENS N/A 10/29/2007 Cataract extraction and insertion of intraocular lens ??? CATARACT EXTRACTION, BILATERAL ??? DECOMPRESSION OF MEDIAN NERVE N/A 01/30/2002 Carpal tunnel release ??? DIAGNOSTIC LOWER EXTREMITY ANGIOGRAM Left 03/31/2017 Diagnostic lower extremity angiogram Notes: proceed as indicated ??? DIAGNOSTIC LOWER EXTREMITY ANGIOGRAM Left 04/04/2017 Diagnostic lower extremity angiogram ??? DIAGNOSTIC LOWER EXTREMITY ANGIOGRAM Left 05/27/2017 Diagnostic lower extremity angiogram ??? DIAGNOSTIC LOWER EXTREMITY ANGIOGRAM Right 08/31/2017 Diagnostic lower extremity angiogram ??? ENDARTERECTOMY FEMORAL - ANGIOPLASTY/INTERPOSITION PATCH GRAFT WITH OR WITHOUT PROFUNDOPLASTY Left 04/04/2017 Due to critical limb ischemia, left lower extremity, secondary to atherosclerosis ??? ENDOVASCULAR FEMORAL AND/OR POPLITEAL AND/OR TIBIAL ARTERY ANGIOPLASTY/STENT Left 05/27/2017 Endovascular femoral and/or popliteal and/or tibial artery angioplasty/stent Notes: proceed as indicated ??? ENDOVASCULAR ILIAC AND/OR FEMORAL AND/OR POPLITEAL AND /OR TIBIAL ARTERY ANGIOPLASTY/STENT Left 04/04/2017 Endovascular iliac and/or femoral and/or popliteal and /or tibial artery angioplasty/stent Notes: [id number] ??? ENDOVASCULAR ILIAC AND/OR FEMORAL AND/OR POPLITEAL AND /OR TIBIAL ARTERY ANGIOPLASTY/STENT Right08/31/2017 Endovascular iliac and/or femoral and/or popliteal and /or tibial artery angioplasty/stent Notes: [id number] ??? FEMORAL ARTERY STENT Right 08/31/2017 ??? FEMORAL ENDARTERECTOMY, PATCH ANGIOPLASTY/INTERPOSITION GRAFT WITH/WITHOUT PROFUNDOPLASTY Left 04/04/2017 Femoral endarterectomy, patch angioplasty/interposition graft with/without profundoplasty Notes: [id number] ??? NM SESTAMIBI W/DOBUTAMINE 1 DA postive for myocardial ischemia with normal LVEF ??? TOE AMPUTATION Left 05/31/2017 Toe amputation Notes: Left hallux ??? TONSILLECTOMY as a child MEDICATIONS: Current Outpatient Prescriptions: ??? ACCU-CHEK XIAO PLUS TEST STRP strips, for testing blood sugars 6 times daily, Disp: 200 strip, Rfl: 11 ??? amLODIPine (NORVASC) 10 mg tablet, Take 1 tablet (10 mg total) by mouth daily., Disp: 90 tablet,Rfl: 3 ??? aspirin [address] tablet, Take 325 mg by mouth daily. Take in evening, Disp: , Rfl: ??? atorvastatin (for_LIPITOR) 20 mg tablet, Take 1 tablet (20 mg total) by mouth at bedtime., Disp:90 tablet, Rfl: 3 ??? clopidogrel (PLAVIX) 75 mg tablet, Take 1 tablet (75 mg total) by mouth daily., Disp: 90 tablet,Rfl: 3 ??? colchicine (COLCRYS) 0.6 mg tablet, Take 1 tablet (0.6 mg total) by mouth daily. (Patient takingdifferently: Take 0.6 mg by mouth as needed (as needed for gout flare). ), Disp: 30 tablet, Rfl: 11 ??? doxepin (SINEquan) 10 mg capsule, Take 10 mg by mouth at bedtime., Disp: , Rfl: 11 ??? DULoxetine (for_CYMBALTA) [address] capsule, Take 3 capsules by mouth daily. , Disp: , Rfl: ??? insulin lispro (HumaLOG KwikPen) 100 unit/mL injection, Inject 0.1 mL (10 Units total) under theskin 3 (three) times a day with meals. (Patient taking differently: Inject 10 Units under the skin 3(three) times a day with meals. Takes actually 15units TID with meals ), Disp: 15 mL, Rfl: 3 ??? lancets misc, Dispense item covered by pt ins. 250.02 IDDM type II Tests 4 times/day. Reason: High A1c. History labile sugars, hypertension, poor control, Disp: , Rfl: ??? LANTUS SOLOSTAR U-100 INSULIN 100 unit/mL (3 mL) injection, Inject 0.3 mL (30 Units total) underthe skin at bedtime. (Patient taking differently: Inject 30 Units under the skin every morning. ), Disp: 15 pen, Rfl: 3 ??? metoprolol succinate (TOPROL-XL) 200 mg 24 hr tablet, Take 1 tablet (200 mg total) by mouth daily. Do not crush or chew. (Patient taking differently: Take 200 mg by mouth every evening. Do not crush or chew. ), Disp: 90 tablet, Rfl: 3 ??? nortriptyline (PAMELOR) 50 mg capsule, Take 50 mg by mouth at bedtime., Disp: , Rfl: 5 ??? oxyCODONE (OxyCONTIN) 20 mg 12 hr tablet, Take 40 mg by mouth every 12 (twelve) hours. , Disp: ,Rfl: 0 ??? oxyCODONE-acetaminophen (PERCOCET) 5-325 mg per tablet, TAKE ONE TABLET BY MOUTH TWICE A DAY NEEDED FOR MODERATE TO SEVERE PAIN Takes 2 between 3 and 5pm, Disp: , Rfl: 0 ??? pantoprazole (PROTONIX) 40 mg EC tablet, Take 1 tablet (40 mg total) by mouth once daily. (Patient taking differently: Take 40 mg by mouth every evening. ), Disp: 90 tablet, Rfl: 3 ??? pen needle, diabetic 31 gauge x 5/16 needle, Inject 1 each under the skin 4 (four) times a day., Disp: 150 each, Rfl: 3 ??? tiZANidine (ZANAFLEX) 4 mg tablet, TAKE ONE-HALF TO ONE TABLET BY MOUTH THREE TIMES A DAY NEEDED, takes one in the afternoon, one at supper and one at bedtime, Disp: , Rfl: 0 ??? ferrous sulfate 325 mg (65 mg iron) tablet, Take 1 tablet (65 mg of iron total) by mouth daily.,Disp: 90 tablet, Rfl: 3 ??? gabapentin (NEURONTIN) 300 mg capsule, Take 1 capsule (300 mg total) by mouth 2 (two) times a day., Disp: 60 capsule, Rfl: 5 ??? rOPINIRole (REQUIP) 2 mg tablet, Take 0.5 tablets (1 mg total) by mouth at bedtime., Disp: 15 tablet, Rfl: 0 ALLERGY: Allergies Allergen Reactions ??? Morphine Itching and Rash itchy ??? Pregabalin Anaphylaxis swell ??? Pigvuat-Mmr-Gqz Reductase Inhibitors Myalgia Family History Problem Relation Age of Onset ??? No Known Problems Brother ??? Diabetes Sister ??? Dementia Mother ??? Heart disease Father ??? Hypertension Father ??? Diabetes Brother ??? Stroke Brother ??? Heart disease Brother ??? Colon polyps Brother ??? Diabetes Brother ??? Breast cancer Sister ??? Prediabetes Sister Social History Social History ??? Marital status: Spouse name: N/A ??? Number of children: N/A ??? Years of education: N/A Occupational History ??? Not on file. Social History Main Topics ??? Smoking status: Former Smoker Packs/day: 0.50 Types: Cigarettes Quit date: 03/16/2018 ??? Smokeless tobacco: Never Used ??? Alcohol use No Comment: yearly ??? Drug use: No ??? Sexual activity: Not Currently Partners: Female Other Topics Concern ??? Not on file Social History Narrative He is . He is retired. 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 OBJECTIVE Vitals: 04/21/18 1404 BP: 125/73 Pulse: PHYSICAL EXAM COGNITION: Alert and oriented x 4. CRANIAL NERVES: ordnance technician II-XII intact and symmetric. MOTOR: Full strength throughout the upper and lower extremities bilaterally both proximally and distally. Normal tone. No pronator drift. No tremor. REFLEXES: Normal and symmetric at the biceps, triceps, brachioradialis, knees, absent in the ankles. SENSORY: Decreased temperature in the lower extremities CEREBELLAR: ARMs-normal GAIT: Normal Encounter Diagnoses Name Primary? Restless Leg Syndrome Yes ??? Neuropathy Peripheral For still continuing to wean the Mirapex a plan is to cut the Mirapex to 1/2 tablet and then increase the gabapentin to 300 mg p.o. b.i.d.. He has oxycodone for rescue. I will plan to see him back in 6months if he has significant increase in discomfort from restless legs I have instructed to call me before his visit. He verbalized agreement with this plan. Total time together was 30 min 20 in counseling. Yessy Coehn M.D., M.P.H. Answers for HPI/ROS submitted by the patient on 12/27/2017 Fatigue: Yes Visual problems: Yes Difficulty hearing: Yes Swelling in the legs or feet: Yes Pain in the calf muscles when walking: Yes Wheezing: Yes Heartburn: Yes Diarrhea: Yes Muscle pain/stiffness: Yes Joint swelling: Yes No skin issues: Yes Headache: Yes Numbness or shooting pain in hands, arms, legs or feet: Yes Loss of balance or tendency to fall easily: Yes No mental health issues: Yes Bruises/bleeds easily: Yes Frequent urination: Yes Difficulty urinating: Yes Erectile dysfunction: Yes AGING ENGINEER documented in this encounter Plan of Treatment Not on filedocumented as of this encounter Visit Diagnoses Diagnosis Restless Leg Syndrome - Primary Neuropathy Peripheral documented in this encounter Additional Health Concerns Assessment Noted Time PHQ-9 Depression Total Score: 3 01/03/2018 10:38 AM CD T documented as of this encounter
--- OUTSIDE RECORDS SUMMARY | 2022-03-16 12:25 | XMS_ITS | Encounter Summary ---
:1950 Author Organization [facility] Address [address] [place] [address] Care Team Providers Name Role Phone Unavailable Primary Care Provider Unavailable Reason for Referral Outpatient (Routine) - Closed Specialty Diagnoses / Procedures Referred By Contact Refer red To Contact Family Medicine Diagnoses Diabetes Mellitus Type 2 With Diabetic Neuropathy Hyperglycemic (HCC) SHIVA Catalan [facility] Demetri Duran M.D. [address] [place] [phone] Referral ID Status Reason Start Date Expiration Date Visits Requ ested Visits Authorized [id number] Closed 04/24/2018 04/24/2019 1 1 Scheduling Instructions Irma Zacarias utpatient (Routine) - Closed Specialty Diagnoses / Procedures Referred By Referred To Contact Contact Physical Medicine and Diagnoses Diabetes Mellitus Type 2 With Diabetic Neuropathy Hyperglycemic (HCC) Mejia SHANNON [facility] Renee Jenkins M.D. [address] [place] [phone] Referral ID Status Reason Start Date Expiration Date Visits Requ ested Visits Authorized [id number] Closed 04/24/2018 04/24/2019 1 1 L TELEPHONE OPERATOR Reason for Visit Reason Comments Follow-up A1C result and L wrist Outpatient (Routine) - Closed Specialty Diagnoses / Procedures Referred By Contact Refer red To Contact Family Medicine Diagnoses Diabetes Mellitus Type 2 With Diabetic Neuropathy Hyperglycemic (HCC) SHIVA Catalan SE ANGIE Duran M.D. [address] [place] [address] Referral ID Status Reason Start Date Expiration Date Visits Requ ested Visits Authorized [id number] Closed 04/21/2018 04/21/2019 1 1 Encounter Details Date Type Department Care Team Description 04/24/2018 Office Visit Department of Family Lina Gtz etelizabeth Mellitus Type 2 With Diabetic Neuropathy Hyperglycemic (HCC) (Primary Dx); Medicine, Renee Snider, Perfecto Wr ist Right; Clinic, in [place] [place] Screening Colon Cancer Average Risk; [place] [address] Need Vaccine Immunization [address] [place], [place] [phone] Social History Tobacco Use Types Packs/Day Years [...] week 03/25/2021 How often do you attend worship or confucianism services? Never 03/25/2021 Do you belong to any clubs or organizations such as worship N o 03/25/2021 groups, unions, fraternal or [...] or slept in a [facility] (including now)? 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 - 04/24/2018 9:15 AM CST CHIEF COMPLAINT/ REASON FOR VISIT Follow up diabetes mellitus type 2. HISTORY OF PRESENT ILLNESS Onesimo Walton is a 68 y.o. male who presents to the clinic today for follow up diabetes mellitus type 2. He notes that his sugars have been running high. He notes that he has not been using his insulin as well as he should be. He is also using Lantus 30 units in the morning and he typically takes 12-15 units of short acting insulin at mealtime. He does use the short acting 3-4 times a day. He notes that he is not as active as he used to be. He thinks that we could increase his Lantus insulin and he has thought about the idea of using a pump. He is also having some pain in his left wrist. He needs to make sure he watches the activities he does because if he moves it certain ways, the pain will shoot all the way up his arm. Pain at the distal radius, at the CMC joint. The patient denies any additional questions or concerns at this time. SYSTEMS REVIEW Please see HPI for pertinent positives, otherwise rest of ROS negative. MEDICATIONS Current Outpatient Prescriptions Medication Sig Dispense Refill ??? ACCU-CHEK XIAO PLUS TEST STRP strips for testing blood sugars 6 times daily 200 strip 3 ??? amLODIPine (NORVASC) 10 mg tablet Take 1 tablet (10 mg total) by mouth daily. 90 tablet 3 ??? aspirin [address] tablet Take 325 mg by mouth daily. Take in evening ??? atorvastatin (for_LIPITOR) 20 mg tablet Take 1 tablet (20 mg total) by mouth at bedtime. 90 tablet 3 ??? clopidogrel (PLAVIX) 75 mg tablet Take 1 tablet (75 mg total) by mouth daily. 90 tablet 3 ??? colchicine (COLCRYS) 0.6 mg tablet Take 1 tablet (0.6 mg total) by mouth daily. (Patient taking differently: Take 0.6 mg by mouth as needed (as needed for gout flare). ) 30 tablet 11 ??? doxepin (SINEquan) 10 mg capsule Take 10 mg by mouth at bedtime. 11 ??? DULoxetine (for_CYMBALTA) [address] capsule Take 3 capsules by mouth daily. ??? ferrous sulfate 325 mg (65 mg iron) tablet Take 1 tablet (65 mg of iron total) by mouth daily. 90 tablet 3 ??? gabapentin (NEURONTIN) 300 mg capsule Take 1 capsule (300 mg total) by mouth 2 (two) times a day. 60 capsule 5 ??? insulin lispro (HumaLOG KwikPen) 100 unit/mL injection Inject 0.1 mL (10 Units total) under the skin 3 (three) times a day with meals. (Patient taking differently: Inject 10 Units under the skin 3 (three) times a day with meals. Takes actually 15units TID with meals ) 15 mL 3 ??? lancets misc Dispense item covered by pt ins. 250.02 IDDM type II Tests 4 times/day. Reason: High A1c. History labile sugars, hypertension, poor control ??? LANTUS SOLOSTAR U-100 INSULIN 100 unit/mL (3 mL) injection Inject 0.3 mL (30 Units total) under the skin at bedtime. (Patient taking differently: Inject 30 Units under the skin every morning. ) 15 pen 3 ??? metoprolol succinate (TOPROL-XL) 200 mg 24 hr tablet Take 1 tablet (200 mg total) by mouth daily. Do not crush or chew. (Patient taking differently: Take 200 mg by mouth every evening. Do not crushor chew. ) 90 tablet 3 ??? nortriptyline (PAMELOR) 50 mg capsule Take 50 mg by mouth at bedtime. 5 ??? oxyCODONE (OxyCONTIN) 20 mg 12 hr tablet Take 40 mg by mouth every 12 (twelve) hours. 0 ??? oxyCODONE-acetaminophen (PERCOCET) 5-325 mg per tablet TAKE ONE TABLET BY MOUTH TWICE A DAY NEEDED FOR MODERATE TO SEVERE PAIN Takes 2 between 3 and 5pm 0 ??? pantoprazole (PROTONIX) 40 mg EC tablet Take 1 tablet (40 mg total) by mouth once daily. (Patient taking differently: Take 40 mg by mouth every evening. ) 90 tablet 3 ??? pen needle, diabetic 31 gauge x 5/16 needle Inject 1 Injection under the skin daily. Inject 1 injection under the skin 4 times daily 150 each 11 ??? tiZANidine (ZANAFLEX) 4 mg tablet TAKE ONE-HALF TO ONE TABLET BY MOUTH THREE TIMES A DAY NEEDED, takes one in the afternoon, one at supper and one at bedtime 0 ??? rOPINIRole (REQUIP) 2 mg tablet Take 0.5 tablets (1 mg total) by mouth at bedtime. (Patient not taking: Reported on 04/24/2018 ) 15 tablet 0 No current facility-administered medications for this visit. ALLERGIES Allergies Allergen Reactions ??? Morphine Itching and Rash itchy ??? Pregabalin Anaphylaxis swell ??? Jepotpz-Vio-Gzs Reductase Inhibitors Myalgia PAST MEDICAL / SURGICAL HISTORY Past Medical History: Diagnosis Date ??? Bruit [...] mm balloon; Surgeon: Kemar Velásquez M.B.B.S.; Location: [facility] OR ??? ARTHROSCOPIC REPAIR OF ROTATOR [...] popliteal and /or tibial artery angioplasty/stent Notes: [id number] ??? ENDOVASCULAR ILIAC AND/OR FEMORAL AND/OR POPLITEAL AND /OR TIBIAL ARTERY ANGIOPLASTY/STENT Right08/31/2017 Endovascular iliac and/or femoral and/or popliteal and /or tibial artery angioplasty/stent Notes: [id number] ??? FEMORAL ARTERY STENT Right 08/31/2017 ??? FEMORAL ENDARTERECTOMY, PATCH ANGIOPLASTY/INTERPOSITION GRAFT WITH/WITHOUT PROFUNDOPLASTY Left 04/04/2017 Femoral endarterectomy, patch angioplasty/interposition graft with/without profundoplasty Notes: [id number] ??? NM SESTAMIBI W/DOBUTAMINE 1 DA postive for myocardial ischemia with normal LVEF ??? TOE AMPUTATION Left 05/31/2017 Toe amputation Notes: Left hallux ??? TONSILLECTOMY as a child PREVENTIVE SERVICES Social History Substance Use Topics ??? Smoking status: Former Smoker Packs/day: 0.50 Types: Cigarettes Quit date: 03/16/2018 ??? Smokeless tobacco: Never Used ??? Alcohol use No Comment: yearly VITAL SIGNS Vitals: 04/24/18 0910 BP: 110/64 Patient Position: Sitting Pulse: 68 Temp: 36 ??C Weight: 84 kg Body mass index is 27.94 kg/m??. PHYSICAL EXAMINATION General: Patient is alert and oriented times three, in no acute distress, good hygiene and is dressed appropriately. Extremities: Pain at the distal radius, at the CMC joint. Skin: No rashes or suspicious lesions noted on exposed skin. ASSESSMENT / PLAN #1 Diabetes Mellitus Type 2 With Diabetic Neuropathy Hyperglycemic (HCC) PLAN: At this time, will increase his Lantus to 40 units at bedtime. He will continue to work on increased aerobic activity and a low carbohydrate diet. He will schedule an appointment with Irma Zacarias CNP, our breastfeeding educator. #2 Pain Wrist Right PLAN: Recommended that he continue with supportive measures and bracing. #3 Screening Colon Cancer Average Risk PLAN: Will discuss his cardiac risk with Dr. Harris before scheduling him for colonoscopy. #4 Need Vaccine Immunization PLAN: Pneumovax is administered today. Follow up The patient will contact the clinic with any new or worsening symptoms. ADMINISTRATIVE BILLING 20 minutes of this 25 minute visit was spent in face to face counseling and coordination of care. This document serves as a record of services personally performed by Renee Lacy MD. It was created on their behalf by Juju Ibarra, a trained medical research assistant. The creation of this record is based on the scribe's personal observations and the provider's statements to them. This document has been ch ecked and approved by the attending provider. L TELEPHONE OPERATOR documented in this encounter Plan of Treatment Scheduled Referrals Name Type Priority Associated Diagnoses Order S chedule Physical Medicine and Outpatient Routine Diabetes Mellitus E xpected: Rehabilitation - Referral Type 2 With Diabetic 02/2018 General consult Neuropathy (Approximate ), (clinic) Hyperglycemic (HCC) Expires: 04/24/2021 Family Medicine - Outpatient Routine Diabetes Mellitus Expec jennifer: General (clinic) Referral Type 2 With Diabetic 02/2018 Neuropathy (Approximate), Hyperglycemic (HCC) Expires: 04/24/2021 documented as of this encounter Visit Diagnoses Diagnosis Diabetes Mellitus Type 2 With Diabetic N europathy Hyperglycemic (HCC) - Primary Pain Wrist Right Screening Colon Cancer Average Risk Need Vaccine Immunization documented in this encounter Additional Health Concerns Assessment Noted Time PHQ-9 Depression Total Score: 3 01/03/2018 10:38 AM CD T documented as of this encounter
--- OUTSIDE RECORDS SUMMARY | 2022-03-16 12:25 | XMS_ITS | Encounter Summary ---
:1950 Author Organization [facility] Address [address] [place] [address] Care Team Providers Name Role Phone Unavailable Primary Care Provider Unavailable Reason for Visit Reason Comments Med Refill Encounter Details Date Type Department Care Team Description 07/13/2018 Refill Department of Family Medicine, Bambi Adler Med Refill [facility], in [place] M.D. [place] [address] [place] [address] [place] [address] [phone] Social History Tobacco Use Types Packs/Day Years [...] How often do you attend jew or samaritan services? Never 03/25/2021 Do you belong to [...] slept in a skilled nursing (including now)? 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 Name of medication: Humalog Kwikpen Strength: 100 unit/ml Frequency: Inject 10 units under the skin 3 times a day with meals Quantity: 15 Last Refill: 05/17/2018 Pharmacy: [facility] SPECIAL[facility] documented in this encounter Plan of Treatment Not on filedocumented as of this encounter Visit Diagnoses Not on filedocumented in this encounter Additional Health Concerns Assessment Noted Time PHQ-9 Depression Total Score: 3 01/03/2018 10:38 AM CD T documented as of this encounter
--- OUTSIDE RECORDS SUMMARY | 2022-03-16 12:25 | XMS_ITS | Encounter Summary ---
:1950 Author Organization [facility] Address [address] [place] [address] Care Team Providers Name Role Phone Unavailable Primary Care Provider Unavailable Encounter Details Date Type Department Care Team Description 12/21/2018 Orders Only [facility] Ruthie Montero iabetes Mellitus Type 2 Renee means With Diabetic N danny Brock Hyperglycemic (HCC) [address] [place] [address] Social History Tobacco Use Types Packs/Day [...] week 03/25/2021 How often do you attend congregation or yarsani services? Never 03/25/2021 Do you belong to any clubs or organizations such as congregation N o 03/25/2021 groups, unions, fraternal or [...] or slept in a alf (including now)? 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
--- OUTSIDE RECORDS SUMMARY | 2022-03-16 12:25 | XMS_ITS | Encounter Summary ---
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 Never 03/25/2021 Do you [...] slept in a senior care (including now)? 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 Take in evening DULoxetine (CYMBALTA) 60 Take 60 mg by mouth [address] capsule at bedtime. nortriptyline (PAMELOR) Take 100 mg by mouth 5 50 mg capsule at bedtime. omeprazole (PriLOSEC) 40 Take 40 mg by mouth [address] capsule every evening. clopidogrel (PLAVIX) 75 Take 1 tablet (75 mg 90 tablet 3 04/04/2019 mg tablet total) by mouth daily. ferrous sulfate 325 mg Take 1 tablet (65 mg 90 tablet 3 11/201704/21/2019 (65 mg iron) tablet of iron total) by mouth daily. ACCU-CHEK XIAO PLUS for testing blood 200 strip 3 04/21/20 18 10/24/2018 TEST STRP strips sugars 6 times daily amLODIPine (NORVASC) 10 Take 1 tablet (10 mg 90 tablet 3 12/25/2018 mg tablet total) by mouth daily. atorvastatin Take 1 tablet (20 mg 90 tablet 3 08/02/2017 (for_LIPITOR) 20 mg total) by mouth at tablet bedtime. colchicine (COLCRYS) 0.6 Take 1 tablet (0.6 30 tablet 11 11/20/2018 mg tablet mg total) by mouth daily. doxepin (SINEquan) 10 mg Take 10 mg by mouth 11 05/11/2019 capsule at bedtime. gabapentin (NEURONTIN) Take 1 capsule (300 60 capsule 5 11/201705/11/2019 300 mg capsule mg total) by mouth 2 (two) times a day. insulin lispro 100 Inject 0.1 mL (10 10 mL 11 07/14/2018 05/10/2020 unit/mL injection Units total) under the skin 3 (three) times a day with meals. Takes actually 15units TID with meals lancets [facility] Dispense item 0 08/23/2014 10/23/201 9 covered by pt ins. 250.02 IDDM type II Tests 4 times/day. Reason: High A1c. History labile sugars, hypertension, poor control LANTUS SOLOSTAR U-100 Inject 0.4 mL (40 5 pen 11 019 02/04/2021 INSULIN 100 unit/mL (3 Units total) under mL) injection the skin every morning. lisinopril-hydroCHLOROth Take 1 tablet by 0 02/1505/08/2020 iazide mouth daily. (PRINZIDE,ZESTORETIC) 20-12.5 mg per tablet metoprolol succinate Take 1 tablet (200 90 tablet 3 018 03/27/2019 (TOPROL-XL) 200 mg 24 hr mg total) by mouth tablet daily. Do not crush or chew. oxyCODONE (OxyCONTIN) 20 Take 15 mg by mouth 0 05/11/2019 mg 12 hr tablet every 12 (twelve) hours. oxyCODONE-acetaminophen TAKE ONE TABLET BY 0 09/1405/08/2020 (PERCOCET) 5-325 mg per MOUTH TWICE A DAY tablet NEEDED FOR MODERATE TO SEVERE PAIN Takes 2 between 3 and 5pm pantoprazole (PROTONIX) Take 1 tablet (40 mg 90 tablet 3 03/29/2019 40 mg EC tablet total) by mouth [...] one at supper and one at bedtime documented as of this encounter Plan of Treatment Not on filedocumented as of this encounter Procedures Procedure Name Priority Date/Time Associated Diagnosis Comme nts US AORTA ILIAC RAD - Routine 07/18/2018 12:09 Atherosclerosis Of Re sults for ARTERIES LEFT (most inpatients PM DIGITAL MEDIA DESIGNER Solomon Arteries Of this procedure WITH DOPPLER and all Extremities With are in the outpatients) Intermittent results Claudication Right section. Leg (HCC) Atherosclerosis Of Solomon Arteries Of Left Leg With Ulceration Of Unspecified Site (HCC) documented in this encounter Results US Aorta Inferior Vena Cava Iliac Left with Doppler (07/18/2018 12:09 PM DIGITAL MEDIA DESIGNER) Anatomical Region Laterality Modality Abdomen, Pelvis, Ultrasound RST LOS, Ultrasound ARZ LOS, Lef t Ultrasound Ultrasound FLA LOS Specimen (Source) Anatomical Collection Method Collection Time Re ceived Time Location / / Volume Laterality 07/18/2018 12:25 PM DIGITAL MEDIA DESIGNER Impressions 07/18/2018 3:36 PM DIGITAL MEDIA DESIGNER IMPRESSION: ?? 1. New high velocities in the stented le ft common iliac artery stent suggestive of stenosis. 2. Left external iliac artery stenosis. Narrative 07/18/2018 3:36 PM DIGITAL MEDIA DESIGNER EXAM: US AORTA ILIAC ARTERIES LEFT WITH DOPPLER Exam performed with color and spectral D oppler analysis. COMPARISON: 02/08/2018 ultrasound and and CTA FINDINGS: ?? LEFT: The common iliac artery near the o rigin is obscured by overlying bowel gas. Significant stenosis in the stented proximal common iliac artery has developed since the prior study (395 tod anthony 144 cm/s). Velocities remain elevated in the remainder of the visuali zed stent (291-221 cm/s). ??Velocities throughout the external iliac artery are elevated ranging between 199 and 305 cm/s likely representing stenosis. The c ommon femoral artery is patent with normal velocity. Procedure Note Isaak Michael M.D. - 07/18/2018Form atting of this note might be different from the original. EXAM: US AORTA ILIAC ARTERIES LEFT WITH DOPPLER Exam performed with color and spectral D oppler analysis. COMPARISON: 02/08/2018 ultrasound and and CTA FINDINGS: LEFT: The common iliac artery near the o rigin is obscured by overlying bowel gas. Significant stenosis in the stented proximal common iliac artery has developed since the prior study (395 tod anthony 144 cm/s). Velocities remain elevated in the remainder of the visuali zed stent (291-221 cm/s). Velocities throughout the external iliac artery are elevated ranging between 199 and 305 cm/s likely representing stenosis. The c ommon femoral artery is patent with normal velocity. IMPRESSION: 1. New high velocities in the stented le ft common iliac artery stent suggestive of stenosis. 2. Left external iliac artery stenosis. 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
--- OUTSIDE RECORDS SUMMARY | 2022-03-16 12:25 | XMS_ITS | Encounter Summary ---
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 [address] [place] [address] Referral ID Status Reason Start Date Expiration Date Visits Requ ested Visits Authorized [id number] Closed 04/24/2018 04/24/2019 1 1 Encounter Details Date Type Department Care Team Description 05/01/2018 Comprehensive Visit Department of Irma Zacarias erm Use Of Insulin Active (HCC) (Primary Dx); Family Medicine, J, TANK CAR INSPECTOR, Diabetes Me llitus Type 2 With Diabetic Neuropathy Hyperglycemic (HCC) [facility], C.N[facility] in [place], [address] [phone] Social History Tobacco Use Types Packs/Day [...] How often do you attend buddhism or hinduism services? Never 03/25/2021 Do you [...] or slept in a correction (including now)? 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 - 05/01/2018 11:00 AM FLIGHT SURVEYOR Take Humalog insulin before meals. HT SURVEYOR AttachmentsThe following attachments cannot be sent through Care Everywhere. Basic Guidelines for Diabetes Meal Planning (Zimbabwean)documented in this encounter Progress Notes Irma Zacarias APRN, C.N.P. - 05/01/2018 11:00 AM CST SUBJECTIVE CHIEF COMPLAINT: Chief Complaint Patient presents with ??? Diabetes A1C elevated to 8.3 HISTORY OF PRESENT ILLNESS: Onesimo is here for diabetes education. He has had diabetes type 2 for over 20 years. He is currently on Lantus insulin 40 units daily. Lantus was increased from 30 units daily to 40 units daily a week ago when A1c came back elevated at 8.3. Humalog insulin is at 15 units 3 times daily. He states he takes Humalog after he eats so he does not have to worry about his meal being delayed and then experiencing hypoglycemia. He started doing this many years ago when he was working and was experiencing frequent hypoglycemia. We discussed importance of taking rapid acting insulin right before eating to get best efficacy. He states he is willing to try it. REVIEW OF SYSTEMS: A 10 system review of constitutional, cardiovascular, respiratory, musculoskeletal, endocrine, skin,HEENT, genitourinary, psychiatric and neurologic systems was obtained and is unremarkable except as noted above. The following portions of the patient's history were reviewed and updated as appropriate: allergies,current medications, family history, medical history, social history, surgical history and problem list. ALLERGIES: Allergies Allergen Reactions ??? Morphine Itching and Rash itchy ??? Pregabalin Anaphylaxis swell ??? [id number] Reductase Inhibitors Myalgia MEDICATIONS: Current Outpatient Prescriptions: ??? ACCU-CHEK XIAO PLUS TEST STRP strips, for testing blood sugars 6 times daily, Disp: 200 strip, Rfl: 3 ??? amLODIPine (NORVASC) 10 mg tablet, Take [...] by mouth 2 (two) times a day. (Patient taking differently: Take 300 mg by mouth at bedtime. ), Disp: 60 capsule, Rfl: 5 ??? insulin lispro (HumaLOG KwikPen) 100 [...] 0.4 mL (40 Units total) underthe skin at bedtime. (Patient taking differently: Inject 40 Units under the skin every morning. ), [...] (OxyCONTIN) 20 mg 12 hr tablet, Take 15 mg by mouth every 12 (twelve) hours. [...] under the skin 4 times daily, Disp: 150 each, Rfl: 11 ??? rOPINIRole (REQUIP) 2 mg tablet, Take 0.5 tablets (1 mg total) by mouth at bedtime., Disp: 15 tablet, Rfl: 0 ??? tiZANidine (ZANAFLEX) 4 mg tablet, TAKE ONE-HALF TO ONE TABLET BY MOUTH THREE TIMES A DAY NEEDED, takes one in the afternoon, one at supper and one at bedtime, Disp: , Rfl: 0 OBJECTIVE LABS and Diagnostics: Results for orders placed or performed during the hospital encounter of 04/21/18 Hemoglobin A1c Result Value Ref Range Hemoglobin A1c, B 8.3 (H) 4.2 - 5.6 % VITAL SIGNS: Temperature: [36.5 ??C] 36.5 ??C Resp Rate: [16] 16 Blood Pressure: (145-147)/(68-70) 147/70 Pulse Rate: [74] 74 PHYSICAL EXAM: GENERAL: Well-developed, well-nourished, in no acute distress. SKIN: Warm and dry. HEENT: TMs clear. Throat clear. NECK: Supple. No lymphadenopathy or thyromegaly. HEART: Regular rate and rhythm. S1, S2. No murmur. LUNGS: Clear to auscultation. No wheezes or rales. ABDOMEN: Soft, nontender. No hepatosplenomegaly. EXTREMITIES: Warm, dry. No peripheral edema. 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 If fasting blood sugars in the morning remain [id number] increase Lantus to 42 units daily. Start taking Humalog insulin right before eating 3 times daily. He will call with blood sugars in a week and we will continue to adjust insulin as needed. [id number] in 3 months. Schedule dilated eye exam. ROUTINE DIABETES CARE: / Diabetes Education: Recommend a consistent carbohydrate diet and at least 30 minutes of daily exercise for healthy lifestyle. Standard diabetes management includes: Hemoglobin A1c checked every 3 months (every 6 months ifA1c is within target range); urine checked for microalbumin annually; annual dilated eye exam to scre en for diabetic retinopathy; and meticulous foot care. Your goal blood pressure less than 140/90. You should be on statin therapy and have an annual lipid profile. I personally spent over half of a total 25 minutes in counseling and discussion with the patient andcoordination of care as described above. HEALTH MAINTENANCE: Due for dilated eye exam. HT SURVEYOR documented in this encounter Plan of Treatment Not on filedocumented as of this encounter Visit Diagnoses Diagnosis Submersible Pilot Use Of Insulin Active (HCC) - Primary Diabetes Mellitus Type 2 With Diabetic N europathy Hyperglycemic (HCC) documented in this encounter Additional Health Concerns Assessment Noted Time PHQ-9 Depression Total Score: 3 01/03/2018 10:38 AM CD T documented as of this encounter
--- OUTSIDE RECORDS SUMMARY | 2022-03-16 12:25 | XMS_ITS | Encounter Summary ---
:1950 Author Organization [facility] Address [address] [place] [address] Care Team Providers Name Role Phone Unavailable Primary Care Provider Unavailable Encounter Details Date Type Department Care Team Description 07/14/2018 Clinical Communication Department of [facility], [facility] [place] [address] [facility] [phone] Social History Tobacco Use Types Packs/Day Years [...] How often do you attend islam or jehovah's witness services? Never 03/25/2021 Do [...] or slept in a retirement (including now)? 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 Current Can Nursing/Provider leave a detailed message: yes Did the patient refuse triage through Nurse line? (for symptom based concerns) NA Action Needed: Please call back Name of Medication (if relevant): Insulin FACTURING TECHNOLOGY ANALYST documented in this encounter Plan of Treatment Not on filedocumented as of this encounter Visit Diagnoses Not on filedocumented in this encounter Additional Health Concerns Assessment Noted Time PHQ-9 Depression Total Score: 3 01/03/2018 10:38 AM CD T documented as of this encounter
--- OUTSIDE RECORDS SUMMARY | 2022-03-16 12:25 | XMS_ITS | Encounter Summary ---
:1950 Author Organization [facility] Address [address] [place] [address] Care Team Providers Name Role Phone Elsewhere, Pcp Primary Care Provider Unavailable Encounter Details Date Type Department Care Team Description 04/19/2019 Orders Only Department of Ruthie Diabetes M gautam Type 2 Community Internal Renee means, With [facility] in [place] Complication [place] [address] Hyperglycemic (HCC) [address] [place], [place] (Primary Dx) [place] [phone] Social History Tobacco Use Types Packs/Day Years [...] How often do you attend shinto or baptist services? Never 03/25/2021 Do you [...] or slept in a jail (including now)? 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 documented as of this encounter Plan of Treatment Not on filedocumented as of this encounter Visit Diagnoses Diagnosis Diabetes Mellitus Type 2 With Other Circ ulatory Complication Hyperglycemic (HCC) - Primary documented in this encounter Additional Health Concerns Infection Onset Date Last Indicated Resolved Time COVID19 Pending 05/08/2020 05/08/2020 05/08/2020 2:44 PM SENIOR INFORMATION DEVELOPER Assessment Noted Time PHQ-9 Depression Total Score: 3 01/03/2018 10:38 AM CD T documented as of this encounter Care Teams Roller Bearing Inspector Relationship Specialty Start Date End Date Elsewhere, Pcp PCP - General Family Medicine 01/29/20 documented as of this encounter
--- OUTSIDE RECORDS SUMMARY | 2022-03-16 12:25 | XMS_ITS | Encounter Summary ---
:1950 Author Organization [facility] Address [address] [place] [address] Care Team Providers Name Role Phone Unavailable Primary Care Provider Unavailable Reason for Visit Reason Comments Med Refill Encounter Details Date Type Department Care Team Description 07/25/2018 Refill Department of Family Medicine, Fredrick Benitez M.D. Med Refill [facility], in [address] [place] [phone] [place] [address] [place], [place] [phone] Social History Tobacco Use Types Packs/Day Years [...] week 03/25/2021 How often do you attend orthodox or nondenominational services? 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
--- OUTSIDE RECORDS SUMMARY | 2022-03-16 12:25 | XMS_ITS | Encounter Summary ---
:1950 Author Organization [facility] Address [address] [place] [address] Care Team Providers Name Role Phone Unavailable Primary Care Provider Unavailable Reason for Visit Reason Comments Med Refill Encounter Details Date Type Department Care Team Description 03/29/2019 Refill Department of Family Medicine, Bambi Adler Med Refill [facility], in Renee Phillips M.D. [place] [address] [place] [address] [place] [address] [phone] Social History Tobacco Use Types Packs/Day Years [...] How often do you attend jew or faith services? 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
--- OUTSIDE RECORDS SUMMARY | 2022-03-16 12:25 | XMS_ITS | Encounter Summary ---
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 [facility] Procedures Lower Extremity Arterial (MIMI) - TCPO2 (Wound) SD STUDY EXT ARTERY > 2 LVLS TRAVIS [address] [place], [place] [address] Referral ID Status Reason Start Date Expiration Date Visits Requ ested Visits Authorized [id number] Closed 06/09/2018 06/09/2019 1 1 Encounter Details Date Type Department Care Team Description 07/18/2018 Hospital Encounter Department of Kemar Velásquez Atheros clerosis Of [place] Ar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 (HCC); Vascular Medicine M.BFeiBFeiS. Atherosclerosis Of [place] Arteries Of Le ft Leg With Ulceration Of Unspecified Site (HCC) in [place] [address] [place], [place] [address] [facility] [address] [place], [place] [phone] (Work) [phone] Social History Tobacco Use Types Packs/Day Years [...] How often do you attend scientologist or latter-day services? 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 250.02 IDDM [...] Associated Diagnosis Comme nts LOWER EXTREMITY Routine 07/18/2018 12:51 Atherosclerosis Of Re sults for this ARTERIAL (MIMI) - PM BOTTLE HOUSE QUALITY CONTROL TECHNICIAN [place] Arteries Of lui mcfarlane are in TCPO2 (WOUND) Extremities With the result s Intermittent section. 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 Normal at all levels evaluated. ?? Resting Index: ? MIMI (PT)- ??1 .09 ?MIMI (DP)- ??1.07 ?TBI - ??0.88 ?? TcPO2: ? Values as noted. Left: Doppler Waveforms: ? Abnormal signals starting at or above the tibial/pedal level. ?? Resting Index: ? MIMI (PT)- ??1.04 ?MIMI (DP)- ??1.02 ?TBI- ??0.65 ?? TcPO2: ? Values as noted. Conclusions: Right lower extremity: Norm al arterial study at rest. TcPO2 right lower extremity: Leg and foot sites are normal. Left lower extremity: Minimal if any infrapopliteal level arterial occlusiv e disease with abnormal posterior tibial Doppler signal but the ABIs are normal. TcPO2 le ft lower extremity: Leg and foot sites are normal. Compared to the prior study on January 13, 2018, all vascular studies are improved bilaterally. Procedure Note Calvin Padilla M.D. - 07/18/2018For matting of this note might be different from the original. Right: Doppler Waveforms: Normal at all levels evaluated. Resting Index: MIMI (PT)- 1.09 MIMI (DP)- 1.07 TBI- 0.88 TcPO2: Values as noted. Left: Doppler Waveforms: Abnormal signal s starting at or above the tibial/pedal level. Resting Index: MIMI (PT)- 1.04 MIMI (DP)- 1.02 TBI- 0.65 TcPO2: Values as noted. Conclusions: Right lower extremity: Norm al arterial study at rest. TcPO2 right lower extremity: Leg and foot sites are normal. Left lower extremity: Minimal if any infrapopliteal level arterial occlusive disease with abnormal posterior tibial Doppler signal but the ABIs are normal. TcPO2 le ft lower extremity: Leg and foot sites are normal. Compared to the prior study on January 13, 2018, all vascular studies are improved bilaterally. Kemar Reyes CV VASCULAR PROCEDURES documented in this encounter Visit Diagnoses Diagnosis Atherosclerosis Of [place] Arteries Of Ex tremities With Intermittent Claudication Right Leg (HCC) Atherosclerosis Of [place] Arteries Of Le ft Leg With Ulceration Of Unspecified Site (HCC) documented in this encounter Additional Health Concerns Assessment Noted Time PHQ-9 Depression Total Score: 3 01/03/2018 10:38 AM CD T documented as of this encounter
--- OUTSIDE RECORDS SUMMARY | 2022-03-16 12:25 | XMS_ITS | Encounter Summary ---
:1950 Author Organization [facility] Address [address] [place] [address] Care Team Providers Name Role Phone Unavailable Primary Care Provider Unavailable Reason for Visit Reason Comments Wrist Pain left Outpatient (Routine) - Closed Specialty Diagnoses / Procedures Referred By Referred To Contact Contact Physical Medicine and Diagnoses Diabetes Mellitus Type 2 With Diabetic Neuropathy Hyperglycemic (HCC) [facility] Renee preston M.D. [address] [place] [address] Referral ID Status Reason Start Date Expiration Date Visits Requ ested Visits Authorized [id number] Closed 04/24/2018 04/24/2019 1 1 Encounter Details Date Type Department Care Team Description 04/26/2018 Comprehensive Visit Department of Smith Petersen Arthri tis Wrist (Primary Dx); Physical Medicine and [place]. [place]rist [place] [address] [place], [place] [phone] Social History Tobacco Use Types Packs/Day Years [...] How often do you attend pentecostalism or worship services? Never 03/25/2021 Do you [...] slept in a care home (including now)? 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 - 04/26/2018 9:30 AM CST Follow-Up Plan: __ Prescription instructions: None __ Release to work and/or work comp approvals __ Pre-procedure/imaging instructions __ MRI/CT screen __ Outside records (authorization & follow-up) __ Referrals (internal or external): Orthopedic surgery __ Labs or images: None __ Discussion with other providers __ Follow-up phone call/portal message __ Follow-up clinic appointment __ Scheduling desk GER IT TRAINING documented in this encounter Consult Notes Smith Petersen D.O. - 04/26/2018 9:30 AM CST Physical Medicine & Rehabilitation Clinic Note SUBJECTIVE Onesimo Walton is a 68 y.o. right-handed male, who is seen in consultation at the request of Renee Ba* for evaluation of left wrist pain. Symptoms began 1+ years ago. Reports insidious onset without acute precipitating event. Reports leftwrist pain that is located dorsal. Pain is 10/10 in maximal severity and 5/10 currently. Symptoms are generally worse with motion and better with nothing in particular. Treatment has consisted of nothing to date specifically for th left wrist. Denies any numbness/tingling/weakness of the left upper extremity. Denies any bruising present of the left wrist/hand. Notes swelling present of left wrist. Denies any fevers or chills. Denies any other joint pain presently. Denies any falls in the last 12 months. Notes history of bilateral carpal tunnel releases over 10 years ago. Patient's past medical, surgical, social, and family histories are reviewed today Past Medical History: Diagnosis Date ??? Bruit [...] a 6 mm balloon; Surgeon: Kemar Velásquez M.B.B.SFei; Location: [facility] OR ??? ARTHROSCOPIC REPAIR OF [...] popliteal and /or tibial artery angioplasty/stent Notes: [id number] ??? ENDOVASCULAR ILIAC AND/OR FEMORAL AND/OR POPLITEAL AND /OR TIBIAL ARTERY ANGIOPLASTY/STENT Right08/31/2017 Endovascular iliac and/or femoral and/or popliteal and /or tibial artery angioplasty/stent Notes: [id number] ??? FEMORAL ARTERY STENT Right 08/31/2017 ??? FEMORAL ENDARTERECTOMY, PATCH ANGIOPLASTY/INTERPOSITION GRAFT WITH/WITHOUT PROFUNDOPLASTY Left 04/04/2017 Femoral endarterectomy, patch angioplasty/interposition graft with/without profundoplasty Notes: [id number] ??? NM SESTAMIBI W/DOBUTAMINE 1 DA postive for myocardial ischemia with normal LVEF ??? TOE AMPUTATION Left 05/31/2017 Toe amputation Notes: Left hallux ??? TONSILLECTOMY as a child Social History Social History ??? Marital status: [...] is retired. 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 Family History Problem Relation Age of Onset ??? No Known Problems Brother ??? Diabetes Sister ??? Dementia Mother ??? Heart disease Father ??? Hypertension Father ??? Diabetes Brother ??? Stroke Brother ??? Heart disease Brother ??? Colon polyps Brother ??? Diabetes Brother ??? Breast cancer Sister ??? Prediabetes Sister REVIEW OF SYSTEMS Constitutional: normal Eyes: normal Ears: normal Throat: normal Cardiovascular: normal Respiratory: normal Gastrointestinal: normal Genitourinary: normal Musculoskeletal: See HPI Neurological: normal Hematologic/Lymphatic: normal OBJECTIVE BP 125/71 Pulse 67 Temp 36.8 ??C Wt 84.9 kg BMI 28.24 kg/m?? General: healthy, alert, and in no acute distress Skin: no suspicious lesions or rashes Psych: mentation appears normal with affect normal/bright HEENT: no scleral icterus CV: no pedal edema Resp: normal respiratory effort without conversational dyspnea Neuro: sensory exam is within normal limits. Motor strength as noted below MUSCULOSKELETAL Left wrist Inspection: Small healed old vertical incision noted of the volar aspect of the wrist Palpation: No tenderness to palpation of the distal radius Tenderness to palpation of the distal ulna, pisiform, triquetrium, lunate, scaphoid, hamate, capitate, trapezium and trapezoid Range of Motion: Wrist flexion - limited by pain Wrist extension - limited by pain Strength: Wrist extension - 5/5 Wrist flexion - 5/5 Special Tests: Positive: none Negative: none DIAGNOSTIC TESTING/IMAGING no x-rays indicated during today's clinical visit and previous films were reviewed today, independent interpretation/visualization of images was completed, and results were discussed with the patient Left wrist x-rays - 09/06/2017 IMPRESSION: Advanced degenerative change radiocarpal joint with subchondral sclerosis in the radius and scaphoid. Moderate degenerative change at the STT joint. Additional scattered mild degenerative change. 7 mm well-corticated osseous density dorsal to the carpal bones on the lateral view may be dueto old trauma. Arterial calcification. ASSESSMENT 1. Primary left wrist osteoarthrosis 2. Left wrist pain PLAN 1. Discussed nonsurgical treatment options with the patient including observation, oral pain medication management, activity modification, a left radiocarpal joint corticosteroid injection with ultrasound guidance, hand therapy, brace immobilization, etc along with operative intervention for further treatment purposes moving forward. 2. Discussed that because of advanced osteoarthrosis noted of the left wrist that likely nonsurgicaltreatment options would be ineffective or only partially beneficial for improvement of his current symptom state. 3. Did discuss a left radiocarpal joint corticosteroid injection with ultrasound guidance, but did note that his last hemoglobin A1c was noted to be 8.3, which could place him at a risk for a complication related to his diabetes with completion of a left radiocarpal joint corticosteroid injection at this time, thus the patient wished to defer this currently. 4. Referral placed to orthopedic surgery for consideration of operative intervention for further treatment purposes. 5. Follow-up as needed for further evaluation/medical care. Instructed to call if interested in completion of a left radiocarpal joint corticosteroid injection with ultrasound guidance, but would need to discuss this with his primary care provider before proceeding forward regarding his elevated hemoglobin A1c level to determine if proceeding forward with this would be appropriate. Smith Petersen DO, CAQSM Dermatology Nurse Furniture Mover Driver Physical Medicine & Rehabilitation GER IT TRAINING documented in this encounter Plan of Treatment Not on filedocumented as of this encounter Visit Diagnoses Diagnosis Arthritis Wrist - Primary Pain Wrist Left documented in this encounter Additional Health Concerns Assessment Noted Time PHQ-9 Depression Total Score: 3 01/03/2018 10:38 AM CD T documented as of this encounter
--- OUTSIDE RECORDS SUMMARY | 2022-03-16 12:25 | XMS_ITS | Encounter Summary ---
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 Never 03/25/2021 Do you [...] or slept in a fci (including now)? 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 Leg (HCC) Atherosclerosis Of [place] Arteries Of Left Leg With Ulceration Of Unspecified Site (HCC) documented in this encounter Results US Lower Extremity Arteries Bilateral (07/18/2018 12:09 PM RENTAL CLERK TOOL AND EQUIPMENT) Anatomical Region Laterality Modality Lower Extremity, Ultrasound RST LOS, Ultrasound ARZ LOS, Rodríguez ateral Ultrasound Ultrasound FLA LOS Specimen (Source) Anatomical Collection Method Collection Time Re ceived Time Location / / Volume Laterality 07/18/2018 12:32 PM RENTAL CLERK TOOL AND EQUIPMENT Impressions 07/18/2018 3:03 PM RENTAL CLERK TOOL AND EQUIPMENT IMPRESSION: ?? 1. New right common femoral artery mild stenosis. 2. Bilateral probable mild stenosis at t he origin of the profunda. 3. Bilateral SFA stents patent without s tenosis. 4. New stenosis in the proximal left sup erficial femoral artery. 5. Left anterior tibial artery stenosis in the upper calf. 6. Left posterior tibial artery patent w ithout stenosis. Narrative 07/18/2018 3:03 PM RENTAL CLERK TOOL AND EQUIPMENT EXAM: US LOWER EXTREMITY ARTERIES BILATERAL Exam performed with color and spectral D oppler analysis. COMPARISON: 01/13/2018 FINDINGS RIGHT: ??The common femoral artery is pa tent with mild stenosis probably new since the prior study (218 versus 138 cm /s). The profunda is patent with mild velocity elevation at the origin which m ay represent stenosis new since prior (181 versus 101 cm/s). Otherwise no sign ificant change. The superficial femoral artery including stented segment is camara nt without significant stenosis. The popliteal artery is patent without steno sis. LEFT: ??The common femoral artery is pat ent without stenosis. The profunda is patent with mild velocity elevation at t he origin which may represent stenosis new since prior (181 versus 37 cm/s). Th e superficial femoral artery is patent with new stenosis in the proximal segmen t (214 cm/s). The remainder of the SFA including stented segment is patent with out stenosis. The popliteal artery is patent and nonstenotic. The anterior tib ial artery is patent with moderate stenosis in the upper calf (176 cm/s). T he posterior tibial artery is patent with no stenosis in the visualized segme nts. Procedure Note Isaak Michael M.D. - 07/18/2018Form atting of this note might be different from the original. EXAM: US LOWER EXTREMITY ARTERIES BILATE RAL Exam performed with color and spectral D oppler analysis. COMPARISON: 01/13/2018 FINDINGS RIGHT: The common femoral artery is camara nt with mild stenosis probably new since the prior study (218 versus 138 cm /s). The profunda is patent with mild velocity elevation at the origin which m ay represent stenosis new since prior (181 versus 101 cm/s). Otherwise no sign ificant change. The superficial femoral artery including stented segment is camara nt without significant stenosis. The popliteal artery is patent without steno sis. LEFT: The common femoral artery is paten t without stenosis. The profunda is patent with mild velocity elevation at t he origin which may represent stenosis new since prior (181 versus 37 cm/s). Th e superficial femoral artery is patent with new stenosis in the proximal segmen t (214 cm/s). The remainder of the SFA including stented segment is patent with out stenosis. The popliteal artery is patent and nonstenotic. The anterior tib ial artery is patent with moderate stenosis in the upper calf (176 cm/s). T he posterior tibial artery is patent with no stenosis in the visualized segme nts. IMPRESSION: 1. New right common femoral artery mild stenosis. 2. Bilateral probable mild stenosis at t he origin of the profunda. 3. Bilateral SFA stents patent without s tenosis. 4. New stenosis in the proximal left sup erficial femoral artery. 5. Left anterior tibial artery stenosis in the upper calf. 6. Left posterior tibial artery patent w ithout stenosis. 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
--- OUTSIDE RECORDS SUMMARY | 2022-03-16 12:25 | XMS_ITS | Encounter Summary ---
:1950 Author Organization [facility] Address [address] [place] [address] Care Team Providers Name Role Phone Unavailable Primary Care Provider Unavailable Reason for Referral Outpatient (Routine) - Closed Specialty Diagnoses / Procedures Referred By Contact Refer red To Contact Vascular Surgery Diagnoses . Kemar Velásquez M.B.B.S. 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 [facility] Procedures Lower Extremity Arterial (MIMI) - TCPO2 (Wound) [place] STUDY EXT ARTERY > 2 LVLS TRAVIS [address] [place] [address] Referral ID Status Reason Start Date Expiration Date Visits Requ ested Visits Authorized [id number] Closed 06/09/2018 06/09/2019 1 1 NIC SEARCH LEAD Encounter Details Date Type Department Care Team Description 06/09/2018 Orders Only Department of Eickhoff, Stacy Atherosc lerosis Of [place] Arteries Of Left Leg With Ulceration Of Unspecified Site (HCC) (Primary Dx); Vascular Medicine in [place] [place] [facility] Atherosclerosis Of [place] Arteries Of Ex tremities With Intermittent Claudication Right Leg (HCC) [place], [place] [address] [place] [phone] Social History Tobacco Use Types Packs/Day Years [...] How often do you attend yarsanism or orthodoxy services? Never 03/25/2021 Do you belong to [...] or slept in a custodial (including now)? 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 documented as of this encounter Plan of Treatment Scheduled Referrals Name Type Priority Associated Diagnoses Order S [facility] Vascular Surgery Outpatient Referral Routine Expe cted: office visit 07/17/2018 (clinic) (Approximate), Expires: 06/09/2021 documented as of this encounter Results Lower Extremity Arterial (MIMI) - TCPO2 (Wound) (07/18/2018 12:51 PM ORGANIC SEARCH LEAD) Anatomical Region Laterality Modality Other Specimen (Source) Anatomical Collection Method Collection Time Re ceived Time Location / / Volume Laterality 07/18/2018 12:07 PM ORGANIC SEARCH LEAD Narrative 07/18/2018 12:07 PM ORGANIC SEARCH LEAD Right: Doppler Waveforms: ? Normal at all [...] improved bilaterally. Kemar Reyes CV VASCULAR PROCEDURES US Aorta Inferior Vena Cava Iliac Left with Doppler (07/18/2018 12:09 PM ORGANIC SEARCH LEAD) Anatomical Region Laterality Modality Abdomen, Pelvis, Ultrasound RST LOS, Ultrasound ARZ LOS, Lef t Ultrasound Ultrasound FLA LOS Specimen (Source) Anatomical Collection Method Collection Time Re ceived Time Location / / Volume Laterality 07/18/2018 12:25 PM ORGANIC SEARCH LEAD Impressions 07/18/2018 3:36 PM ORGANIC SEARCH LEAD IMPRESSION: ?? 1. New high velocities in the stented le ft common iliac artery stent suggestive of stenosis. 2. Left external iliac artery stenosis. Narrative 07/18/2018 3:36 PM ORGANIC SEARCH LEAD EXAM: US AORTA ILIAC ARTERIES LEFT WITH [...] iliac artery stenosis. Kemar ETIENNE US PROCEDURES US Lower Extremity Arteries Bilateral (07/18/2018 12:09 PM ORGANIC SEARCH LEAD) Anatomical Region Laterality Modality Lower Extremity, Ultrasound RST LOS, Ultrasound ARZ LOS, Travis ateral Ultrasound Ultrasound FLA LOS Specimen (Source) Anatomical Collection Method Collection Time Re ceived Time Location / / Volume Laterality 07/18/2018 12:32 PM ORGANIC SEARCH LEAD Impressions 07/18/2018 3:03 PM ORGANIC SEARCH LEAD IMPRESSION: ?? 1. New right common femoral [...] w ithout stenosis. Narrative 07/18/2018 3:03 PM ORGANIC SEARCH LEAD EXAM: US LOWER EXTREMITY ARTERIES BILATERAL Exam [...] tibial artery patent w ithout stenosis. 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 ft Leg With Ulceration Of Unspecified Site (HCC) Atherosclerosis Of [place] Arteries Of Ex tremities With Intermittent Claudication Right Leg (HCC) Atherosclerosis 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
--- OUTSIDE RECORDS SUMMARY | 2022-03-16 12:25 | XMS_ITS | Encounter Summary ---
:1950 Author Organization [facility] Address [address] [place] [address] Care Team Providers Name Role Phone Unavailable Primary Care Provider Unavailable Reason for Referral Outpatient (Routine) - Closed Specialty Diagnoses / Procedures Referred By Contact Refer red To Contact Family Medicine Diagnoses Diabetes Mellitus Type 2 With Diabetic Neuropathy Hyperglycemic (HCC) [facility] Demetri Duran M.D. [address] [place] [address] Referral ID Status Reason Start Date Expiration Date Visits Requ ested Visits Authorized [id number] Closed 04/21/2018 04/21/2019 1 1 O INTERN Encounter Details Date Type Department Care Team Description 04/21/2018 Orders Only Department of [facility] Ruthie finnegan Mellitus Type 2 Medicine, Renee Antonio, With [facility], in [place] Hyperglycemic (HCC) [place] [address] (Primary Dx) [address] [facility] [place] [place] [phone] Social History Tobacco Use Types Packs/Day Years [...] How often do you attend yazidi or jehovah's witness services? Never 03/25/2021 Do [...] at Date Recorded Male 03/24/2021 8:13 PM PHOTO INTERN documented as of this encounter Plan of Treatment Scheduled Referrals Name Type Priority Associated Diagnoses Order S [facility] Medicine Outpatient Referral Routine Diabetes Mellitus Type Expected: office visit 2 With Diabetic 04/21/2018 (clinic) Neuropathy (Approximate), Hyperglycemic (HCC) Expires: 04/21/2021 documented as of this encounter Visit Diagnoses Diagnosis Diabetes Mellitus Type 2 With Diabetic N europathy Hyperglycemic (HCC) - Primary documented in this encounter Additional Health Concerns Assessment Noted Time PHQ-9 Depression Total Score: 3 01/03/2018 10:38 AM CD T documented as of this encounter
--- OUTSIDE RECORDS SUMMARY | 2022-03-16 12:25 | XMS_ITS | Encounter Summary ---
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 [facility] Procedures Lower Extremity Arterial (MIMI) - TCPO2 (Wound) LA STUDY EXT ARTERY > 2 LVLS RODRÍGUEZ [address] [place] [address] Referral ID Status Reason Start Date Expiration Date Visits Requ ested Visits Authorized [id number] Closed 07/18/2018 07/18/2019 1 1 IN MAKER Outpatient (Routine) - Closed Specialty Diagnoses / Procedures Referred By Contact Refer red To Contact Vascular Surgery Kemar Velásquez M.B.B. S. [place] [address] [place] [address] Referral ID Status Reason Start Date Expiration Date Visits Requ ested Visits Authorized [id number] Closed 07/18/2018 07/18/2019 1 1 IN MAKER Reason for Visit Outpatient (Routine) - Closed Specialty Diagnoses / Procedures Referred By Contact Refer red To Contact Vascular Surgery Diagnoses . Kemar Velásquez M.B.B.S. [facility] [address] [place] [phone] Referral ID Status Reason Start Date Expiration Date Visits Requ nicolled Visits Authorized [id number] Closed 06/09/2018 06/09/2019 1 1 Encounter Details Date Type Department Care Team Description 07/18/2018 Office Visit Division of Vascular Kemar Velásquez Periph eracarline Arterial Disease (HCC) (Primary Dx); and Endovascular M.B.B.S. Atherosclerosis Of [place] Arteries Of Le ft Leg With Ulceration Of Unspecified Site (HCC); Surgery in [address] Atherosclerosis Of [place] Arteries Of Ex tremities With Intermittent Claudication Right Leg (HCC) [place], [place] [address] [place] [phone] [place], [place] [phone] (Work) [phone] Social History Tobacco Use Types Packs/Day Years [...] How often do you attend anglican or samaritan services? 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 - 07/18/2018 2:20 PM CST Onesimo Walton : 1950 Visit Date: 07/18/18 SUBJECTIVE CHIEF COMPLAINT/ REASON FOR VISIT: HISTORY OF PRESENT ILLNESS: Onesimo Walton is a 68 y.o. male who returns for follow-up of his peripheral arterial disease.More recently a performed a left external iliac artery stent angioplasty for in-stent stenosis. He is currently asymptomatic and can walk for long distances. He remains on dual anti-platelet and statintherapy. The current medications, allergies, medical, surgical, social, and family history sections of the chart have been reviewed and updated as pertinent. OBJECTIVE VITAL SIGNS There were no vitals filed for this visit. PHYSICAL EXAM: General: Alert and oriented, No acute distress. Extremities: Warm, well perfused, no edema VASCULAR EXAM:: Peripheral Vascular Pulse Exam Left Posterior tibial: 1+ Dorsalis pedis: 1+ Right Posterior tibial: 1+ Dorsalis pedis: 1+ DIAGNOSTIC FINDINGS: I have reviewed the patient's current laboratory, imaging, and other diagnosticstudies as pertinent. MIMI of 1.0 on the right and 1.08 on the left. No hemodynamically significant stenosis in the iliac stents, common femoral artery patch repair or SFA stent. ASSESSMENT / PLAN 68-year-old gentleman with peripheral arterial disease status post lower extremity hybrid reconstructions. He has quit smoking cigarettes and remains on optimal medical therapy. His noninvasive arterial studies and duplex ultrasounds are very reassuring. I would like to see him back in 6 months and keep him on the current medical regimen. I counseled him about the value of remaining hydrated during the summer months. DIAGNOSIS peripheral arterial disease Frankie ReneeB.S. IN MAKER documented in this encounter Miscellaneous Notes Addendum Note - Daly Lawrence RFeiN. - 07/18/2018 2:20 PM COFFIN MAKER Addended by: DALY LAWRENCE on: 07/18/2018 03:59 PM Modules accepted: Orders IN MAKER documented in this encounter Plan of Treatment Scheduled Referrals Name Type Priority Associated Diagnoses Order S chedule Vascular Surgery Outpatient Referral Routine Expe cted: office visit 01/18/2019 (clinic) (Approximate), Expires: 07/18/2021 documented as of this encounter Results Lower Extremity Arterial (MIMI) - TCPO2 (Wound) (05/03/2019 11:13 AM COFFIN MAKER) Anatomical Region Laterality Modality Other Specimen (Source) Anatomical Collection Method Collection Time Re ceived Time Location / / Volume Laterality 05/03/2019 9:53 AM COFFIN MAKER Narrative 05/03/2019 9:53 AM COFFIN MAKER Right: Doppler Waveforms: ? Normal at all [...] popliteal level. Resting Index: MIMI (PT)- 0.65 MIMI (DP)- 0.69 TBI- 0.52 TcPO2: Values as [...] creased bilaterally. Kemar Reyes CV VASCULAR PROCEDURES US Lower Extremity Arteries Bilateral (05/03/2019 8:44 AM COFFIN MAKER) Anatomical Region Laterality Modality Lower Extremity, Ultrasound RST LOS, Ultrasound ARZ LOS, Rodríguez ateral Ultrasound Ultrasound FLA LOS, Procedural Specimen (Source) Anatomical Collection Method Collection Time Re ceived Time Location / / Volume Laterality 05/03/2019 9:35 AM COFFIN MAKER Impressions 05/03/2019 9:42 AM COFFIN MAKER 1. Stable mild right common femoral artery [...] GINA jose nosis. Narrative 05/03/2019 9:42 AM COFFIN MAKER EXAM: US LOWER EXTREMITY ARTERIES BILATERAL Exam performed with color and spectral D oppler analysis. 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 Stable mild elevation in [facility] in the profunda femoral artery (182 [...] jose nosis. Kemar Reyes IMG US PROCEDURES US Aorta Iliac Arteries Left with Doppler (05/03/2019 8:04 AM COFFIN MAKER) Anatomical Region Laterality Modality Abdomen, Pelvis, Ultrasound RST LOS, Ultrasound ARZ LOS, Lef t Ultrasound Ultrasound FLA LOS, Procedural Specimen (Source) Anatomical Collection Method Collection Time Re ceived Time Location / / Volume Laterality 05/03/2019 8:53 AM COFFIN MAKER Impressions 05/03/2019 9:35 AM COFFIN MAKER 1. Progression in high-grade stenosis of the distal left external iliac artery. 2. Stable elevated velocities in the lef t common iliac artery stent suggestive of moderate stent stenosis. Narrative 05/03/2019 9:35 AM COFFIN MAKER EXAM: US AORTA ILIAC ARTERIES LEFT WITH [...] common femoral artery. Procedure Note Kristi Reid M.B.B.SFei, M.D. - 05/03/20 19 EXAM: US AORTA ILIAC [...] stent suggestive of moderate stent stenosis. Kemar DavidB.SFei [facility] [place] PROCEDURES documented in this encounter Visit Diagnoses Diagnosis Peripheral Arterial Disease (HCC) - Prim dat Atherosclerosis Of [place] Arteries Of Le ft Leg With Ulceration Of Unspecified Site (HCC) Atherosclerosis Of [place] Arteries Of Ex tremities With Intermittent Claudication Right Leg (HCC) Peripheral Arterial Disease (HCC) - Prim dat Atherosclerosis Of [place] Arteries Of Le ft Leg With Ulceration Of Unspecified Site (HCC) Atherosclerosis Of [place] Arteries Of Ex tremities With Intermittent Claudication Right Leg (HCC) Peripheral Arterial Disease (HCC) Atherosclerosis Of [place] Arteries Of Le ft Leg With Ulceration Of Unspecified Site (HCC) Atherosclerosis Of [place] Arteries Of Ex tremities With Intermittent Claudication Right Leg (HCC) Peripheral Arterial Disease (HCC) Atherosclerosis Of [place] Arteries Of Le ft Leg With Ulceration Of Unspecified Site (HCC) Atherosclerosis Of [place] Arteries Of Ex tremities With Intermittent Claudication Right Leg (HCC) documented in this encounter Additional Health Concerns Assessment Noted Time PHQ-9 Depression Total Score: 3 01/03/2018 10:38 AM CD T documented as of this encounter
--- OUTSIDE RECORDS SUMMARY | 2022-03-16 12:25 | XMS_ITS | Encounter Summary ---
:[address] [facility] Address [address] [place] [address] Care Team Providers Name Role Phone Unavailable Primary Care Provider Unavailable Reason for Visit Reason Comments Med Refill Encounter Details Date Type Department Care Team Description 03/07/2019 Refill Department of Family Medicine, Bambi Adler Med Refill [facility], in Renee Phillips M.D. [place] [address] [place] [address] [place] [address] [phone] Social History Tobacco Use Types Packs/Day Years [...] week 03/25/2021 How often do you attend christianity or evangelical services? Never 03/25/2021 Do you belong to any clubs or organizations such as christianity N o 03/25/2021 groups, unions, fraternal or [...] [place] [facility] [place] (including now)? 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
--- OUTSIDE RECORDS SUMMARY | 2022-03-16 12:25 | XMS_ITS | Encounter Summary ---
:1950 Author Organization [facility] Address [address] [place] [address] Care Team Providers Name Role Phone Unavailable Primary Care Provider Unavailable Encounter Details Date Type Department Care Team Description 04/21/2018 Hospital Encounter Department of [facility] [place] Laboratory Medicine Renee beth, Type 2 (HCC) in Del[place] [id number] [address] [phone] Social History Tobacco Use Types Packs/Day Years [...] week 03/25/2021 How often do you attend sabianism or hindu services? 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 insulin lispro (HumaLOG Inject 0.1 mL (10 15 mL 3 02/0307/13/2018 Brielle) 100 unit/mL Units total) under injection the skin 3 (three) times a day with meals. lancets [facility] Dispense item 0 08/23/2014 9 covered by pt ins. 250.02 IDDM type II Tests 4 times/day. Reason: High A1c. History labile sugars, hypertension, poor control LANTUS SOLOSTAR U-100 Inject 0.3 mL (30 15 pen 3 018 04/24/2018 INSULIN 100 unit/mL (3 Units total) under mL) injection the skin at bedtime. lisinopril-hydroCHLOROth Take 1 tablet by 0 02/1505/08/2020 [...] Name Priority Date/Time Associated Diagnosis Comme nts HEMOGLOBIN A1C, B Routine 04/21/2018 1:54 PM Diabetes Mellitus Results for this ORGAN TEACHER Type 2 (HCC) procedure are i n the results section. documented in this encounter Results (ABNORMAL) Hemoglobin A1c (04/21/2018 1:54 PM ORGAN TEACHER) P athologist Signature Hemoglobin A1c, 8.3 (H) 4.2 - 5.6 04/21/2018 [facility] B % 4:[address] [facility] Comment: Hemoglobin A1c values greater than or eq ual to 6.5 percent are diagnostic for diabetes mellitus. ?? Diagnosis should be confirmed by repeat testing. ??In diabet ic patients, HbA1c goals should be discussed with healthcar e provider. Specimen Anatomical Collection Method Collection Time Receive d Time (Source) Location / / Volume Laterality Blood (Blood, 04/21/2018 1:54 PM 04/21/20 18 3:34 Venous) ORGAN TEACHER PM ORGAN TEACHER Renee Catalan M.D. LAB BLOOD ADD-ON Performing Organization Address City/State/ZIP Code Phon e Number [facility] [address] [place] [address] LAB documented in this encounter Visit Diagnoses Diagnosis Diabetes Mellitus Type 2 (HCC) documented in this encounter Additional Health Concerns Assessment Noted Time PHQ-9 Depression Total Score: 3 01/03/2018 10:38 AM CD T documented as of this encounter
--- OUTSIDE RECORDS SUMMARY | 2022-03-16 12:26 | XMS_ITS | Encounter Summary ---
:1950 Author Organization [facility] Address [address] [place] [address] Care Team Providers Name Role Phone Unavailable Primary Care Provider Unavailable Encounter Details Date Type Department Care Team Description 02/16/2018 Hospital Encounter Department of Yessy Cohen Restless Leg Syndrome Laboratory Medicine Delmy Gomes, in [place] [address] [phone] Social History Tobacco Use Types Packs/Day Years Used Date Smoking Tobacco: Every Day Cigarettes 0.5 Smokeless Tobacco: Never Alcohol Use Standard Drinks/Week Comments No 0 (1 standard drink = 0.6 oz pure alcoho l) Alcohol Habits Answer Date Recorded How often [...] How often do you attend congregational or episcopal services? Never 03/25/2021 Do you [...] or slept in a snf (including now)? 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 Take in evening DULoxetine (CYMBALTA) 60 Take 60 mg by mouth [address] capsule at bedtime. nortriptyline (PAMELOR) Take 100 mg by 5 12/07/19 18 50 mg capsule mouth at bedtime. omeprazole (PriLOSEC) 40 Take 40 mg by mouth [address] capsule every evening. ACCU-CHEK XIAO PLUS TEST for testing blood 200 strip 11 04/20/2018 STRP strips sugars 6 times daily acetaminophen Take 500-1,000 mg 0 07/2017 (for_TYLENOL) 500 mg by mouth every 6 tablet (six) hours as needed for pain. amLODIPine (NORVASC) 10 Take 1 tablet (10 90 tablet 3 12/2612/25/2018 mg tablet mg total) by mouth daily. atorvastatin Take 1 tablet (20 90 tablet 3 08/02/201707/25 (for_LIPITOR) 20 mg mg total) by mouth tablet at bedtime. clopidogrel (for_PLAVIX) Take 75 mg by mouth 0 04/04/2018 75 mg tablet daily. colchicine (COLCRYS) 0.6 Take 1 tablet (0.6 30 tablet 11 11/20/2018 mg tablet mg total) by mouth daily. gabapentin (NEURONTIN) Take 1 capsule (300 60 capsule 5 08/201704/21/2018 300 mg capsule mg total) by mouth 2 (two) times a day. insulin lispro (HumaLOG Inject 0.1 mL (10 15 mL 3 02/0307/13/2018 KwikPen) 100 unit/mL Units total) under injection the skin 3 (three) times a day with meals. lancets [facility] Dispense item 0 08/23/2014 9 covered by pt ins. 250.02 IDDM type II Tests 4 times/day. Reason: High A1c. History labile sugars, hypertension, poor control LANTUS SOLOSTAR U-100 Inject 0.3 mL (30 15 pen 3 018 03/20/2018 INSULIN 100 unit/mL (3 Units total) under mL) injection the skin at bedtime. lisinopril-hydroCHLOROthi Take 1 tablet by 0 1007/201505/08/2020 azide mouth daily. (PRINZIDE,ZESTORETIC) 20-12.5 mg per tablet metoprolol succinate Take 1 tablet (200 90 tablet 3 017 04/05/2018 (for_TOPROL-XL) 200 mg 24 mg total) by mouth hr tablet daily. Do not crush or chew. oxyCODONE (OxyCONTIN) 20 Take 15 mg by mouth 0 05/11/2019 mg 12 hr tablet every 12 (twelve) hours. oxyCODONE-acetaminophen TAKE ONE TABLET BY 0 2 05/08/2020 (PERCOCET) 5-325 mg per MOUTH TWICE A DAY tablet NEEDED FOR MODERATE TO SEVERE PAIN Takes 2 between 3 and 5pm pantoprazole Take 40 mg by mouth 0 (for_PROTONIX) 40 mg EC once daily. tablet pen needle, diabetic 31 Inject 1 each under 150 each 3 01/201704/20/2018 gauge x 5/16 needle the skin 4 (four) times a day. predniSONE (DELTASONE) 10 0 10/27/2017 04/17/2018 mg tablet rOPINIRole (REQUIP) 2 mg Take 1 tablet (2 mg 90 tablet 11 04/21/2018 tablet total) by mouth 3 (three) times a day. tiZANidine (ZANAFLEX) 4 TO ONE TABLET BY 0 201705/11/2019 mg tablet MOUTH THREE TIMES A DAY NEEDED, takes one in the afternoon, one at supper and one at bedtime documented as of this encounter Plan of Treatment Not on filedocumented as of this encounter Procedures Procedure Name Priority Date/Time Associated Diagnosis Comme nts FERRITIN, S Routine 02/16/2018 1:21 PM Restless Leg Syndrome Results for this CDT procedure are i n the results section . documented in this encounter Results Ferritin (02/16/2018 1:21 PM CDT) P athologist Signature Ferritin, S 44 mcg/L 02/16/2018 [facility] 4:51 PM [facility] Comment: Biotin has been identified by the manufa cturer as a potential interfering substance. ??Higher concentr ations of biotin may be found in multivitamins, hair/nail supple ments, and workout supplements. ??If the result does not ma [facility] clinical observations, repeat testing after patient refrains fr om the use of supplements for at least 12 hours. ----REFERENCE VALUE---- Reference values have not been established for patients who are greater than 60 years of age Specimen Anatomical Collection Method Collection Time Receive d Time (Source) Location / / Volume Laterality Blood (Blood, 02/16/2018 1:21 PM 02/17/20 18 3:07 Venous) CDT PM CDT Yessy Cohen M.D., M.P.H. LAB BLOOD ADD-ON Performing Organization Address City/State/ZIP Code Phon e Number [facility] [address] [place] [address] LAB documented in this encounter Visit Diagnoses Diagnosis Restless Leg Syndrome documented in this encounter Additional Health Concerns Assessment Noted Time PHQ-9 Depression Total Score: 3 01/03/2018 10:38 AM CD T documented as of this encounter
--- OUTSIDE RECORDS SUMMARY | 2022-03-16 12:26 | XMS_ITS | Encounter Summary ---
:1950 Author Organization [facility] Address [address] [place] [address] Care Team Providers Name Role Phone Unavailable Primary Care Provider Unavailable Reason for Visit Auth/Cert Specialty Diagnoses / Procedures Referred By Contact Refer red To Contact Diagnoses Peripheral Arterial Disease (HCC) Procedures SD REVASC OPN/PERC ILIAC W STENT SD REVASC ILIAC ARTY STNT ANGPLST SD ANGIOGRAPHY EXT UNILAT S&I SD US GUIDE VASC ACCESS IR ENDOVASCULAR ANGIOPLASTY STENT ILIAC LOWER EXTREMITY; right femoral access Referral ID Status Reason Start Date Expiration Date Visits Requ ested Visits Authorized [id number] 1 1 Encounter Details Date Type Department Care Team Description 04/18/2018 Surgery RST ROMChrista PETERS OR Kemar Velásquez, 1. Ultrasound-guided [address] [place] [address] [address] common femoral arteries. [phone] [place], [place] 2. Left SFA 3r d order [id number] vessel catheter [phone] placement 3. Le ft pelvic (Work) angiogram 4. Left lower extremity angio 5. Left external iliac artery angioplasty usi ng a 6 mm balloon Social History Tobacco Use Types Packs/Day Years [...] How often do you attend buddhism or oriental orthodox services? 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 Last Filed Vital Signs Vital Sign Reading Time Taken Comments Blood Pressure 168/76 04/18/2018 9:19 AM FASHION ARTIST Pulse 71 04/18/2018 9:19 AM FASHION ARTIST Temperature 36.8 ??C (98.2 ??F) 04/18/2018 9:19 AM FASHION ARTIST Respiratory Rate 16 04/18/2018 9:19 AM FASHION ARTIST Oxygen Saturation 96% 04/18/2018 9:19 AM FASHION ARTIST Inhaled Oxygen Concentration - - Weight 79.3 kg (174 lb 13.2 oz) 04/18/2018 9:19 AM FASHION ARTIST Height 173.4 cm (5' 8.27) 04/18/2018 9:19 AM FASHION ARTIST Body Mass Index 26.37 04/18/2018 9:19 AM FASHION ARTIST documented in this encounter Discharge Instructions AttachmentsThe following attachments cannot be sent through Care Everywhere.Care Following Coronary Angiogram/Angioplasty/Stent Placement ??? Femoral (Leg) (Icelandic)documented in this encounter Medications at Time of [...] clopidogrel (PLAVIX) 75 Take 1 tablet (75 90 tablet 3 04/0404/04/2019 mg tablet mg total) by mouth daily. amLODIPine (NORVASC) 10 Take 1 tablet (10 90 tablet 3 12/2612/25/2018 mg tablet mg total) by mouth daily. atorvastatin Take 1 tablet (20 90 tablet 3 08/02/201707/25 (for_LIPITOR) 20 mg mg total) by mouth tablet at bedtime. colchicine (COLCRYS) 0.6 Take 1 [...] 3 (three) times a day with meals. LANTUS SOLOSTAR U-100 Inject 0.3 mL (30 15 pen 3 018 04/24/2018 INSULIN 100 unit/mL (3 Units total) under mL) injection the skin at bedtime. metoprolol succinate Take 1 tablet (200 90 [...] 5pm pantoprazole (PROTONIX) Take 1 tablet (40 90 tablet 3 03/2803/29/2019 40 mg EC tablet mg total) by mouth once daily. rOPINIRole (REQUIP) 2 mg Take 1 tablet (2 mg 90 tablet 11 04/21/2018 tablet total) by mouth 3 (three) times a day. tiZANidine (ZANAFLEX) 4 TO ONE TABLET BY 0 201705/11/2019 mg tablet MOUTH THREE TIMES A DAY NEEDED, takes one in the afternoon, one at supper and one at bedtime ACCU-CHEK XIAO PLUS TEST for testing blood 200 strip 11 04/20/2018 STRP strips sugars 6 times daily ferrous sulfate 325 mg Take 1 tablet (65 90 tablet 3 201704/21/2018 (65 mg iron) tablet mg of iron total) by mouth daily. lancets [employer] Dispense item 0 08/23/2014 9 covered by pt ins. 250.02 IDDM type II Tests 4 times/day. Reason: High A1c. History labile sugars, hypertension, poor control lisinopril-hydroCHLOROthi Take 1 tablet by 0 07/201505/08/2020 azide mouth daily. (PRINZIDE,ZESTORETIC) 20-12.5 mg per tablet pen needle, diabetic 31 Inject 1 each under 150 each 3 01/201704/20/2018 gauge x 5/16 needle the skin 4 (four) times a day. documented as of this encounter Progress Notes Michelle Meier, JULIÁN, C.N.P., M.S.N. - 04/18/2018 7:20 PM CST CHIEF COMPLAINT/PURPOSE OF VISIT Patient seen in the Outpatient Recovery Unit. HISTORY OF PRESENT ILLNESS Mr. Walton is a 68 y.o. male who underwent left pelvic angiogram with left extremal iliac artery angioplasty under the care of Dr. Velásquez earlier today. He was seen in the outpatient surgical unit. He has recovered well postoperatively and has met discharge criteria. PHYSICAL EXAMINATION General: Resting comfortably in the bed. No acute distress. Alert and oriented times three. Skin:Rodríguez groin dressings with small amount serosanguanous drainage. No hematoma. No change in drainage since being in outpatient. Vessels: DP and PT signals bilaterally. IMPRESSION/REPORT/PLAN Mr. Walton has recovered well from his surgical procedure. After Visit Summary and Brief Operative Note were given. Postoperative instructions were reviewed. He has the contact information for Dr. Velásquez's surgical service should any questions or concerns arise. Surgical dressings should remain in place for 24 hours. Aspirin was continued perioperatively. Plavix can continued. Follow-up will be coordinated with Dr. Velásquez in 3-4 months. ION ARTIST documented in this encounter H&P Notes Dharmesh Castellanos M.B.B.S. - 04/18/2018 10:24 AM CST Day of Surgery H&P: Indications for Procedure: The patient was examined and the Pre-op diagnosis and planned procedure remain unchanged History of Present Illness: Reviewed and unchanged from the previous documentation - refer to the prior outpatient note for details. Allergies, Medications, Past Medical and Surgical History: Allergies reviewed and updated as necessary. Medical history reviewed and updated as necessary. Surgical history reviewed and updated as necessary. Medications reviewed and updated as necessary. Physical Exam: General: Unchanged from prior outpatient exam. HEENT: Unchanged from prior outpatient exam Heart: Unchanged from prior outpatient exam Lungs: Unchanged from prior exam. Abdomen: Unchanged from prior outpatient exam. Musculoskeletal/Extremities: Unchanged from prior outpatient exam. Neurological: Unchanged from prior outpatient exam Assessment and Plan: Plan Unchanged ION ARTIST documented in this encounter OR Notes Op Note - Kemar Velásquez M.B.B.S. - 04/18/2018 11:58 AM CST FULL OP NOTE Procedure(s): 1. Ultrasound-guided access to bilateral common femoral arteries. 2. Left SFA 3rd order vessel catheter placement 3. Left pelvic angiogram 4. Left lower extremity angio 5. Left external iliac artery angioplasty using a 6 mm balloon (Left) Surgeon(s): Kemar Velásquez M.B.B.S. Khasawneh, Mohammad A, M.B.B.S. Anesthesia Type: Monitored anesthesia care Pre-Operative Diagnosis: Peripheral Arterial Disease (HCC) [I73.9]. Post-Operative Diagnosis: Same as pre-operative diagnosis Findings: As expected Complications: None Description of Procedure: Patient was brought to the operating room placed in supine position. Monitored anesthesia care was obtained. Both groins were prepped and draped in standard fashion and time-out was performed. Preliminary ultrasound of left groin showed a patent common femoral artery. Using ultrasound guidance, access was obtained and images documenting needle entry was saved in the medical record for documentation. Fluoroscopy was used to confirm the proper level of arterial puncture. A left pelvic angiogram was performed and there was stenosis identified in the left external iliac artery stent as well asat the location of the proximal suture line of our patch. I realized that we were not going to be able to perform a balloon angioplasty of the patch anastomotic area and therefore decided to pursue a contralateral groin access approach. Once again ultrasound-guided access was obtained and we came up and over with a 6 Macedonian 55 cm Ang sheath. The external iliac artery stent was angioplastied with a 6 mm balloon to its profile size and so was the anastomotic stenosis. Completion angiogram showed significant improvement. Because of the very distal external iliac/proximal common femoral artery locatio n, I decided not to place the self expanding stent. Lower extremity angiography was performed after left SFA 3rd order vessel catheter placement. This showed patent common femoral profunda femoris SFA.The distal SFA stent was patent. Below that there is 3 vessel runoff to the ankle but the AT occluded. The PT continues as the plantar artery and the foot. At this point Perclose device was used to close the right groin access site with success. For the left groin, we pulled the sheath and held manualpressure. Specimens * No specimens in log * Drains * No drains in log * Estimated Blood Loss 50 mL Implants Implant Name Type Inv. Item Serial No. Edge Sawyer Lot No. LRB No. Used Action STNT INNOVA OTW [id number] - [id number] Vascular Stent STNT INNOVA OTW [id number] [employer] [id number] Left 1 Implanted Shonda ReneeSFei ION ARTIST Brief Op Note - Dharmesh Castellanos M.B.BFeiS. - 04/18/2018 11:58 AM FASHION ARTIST BRIEF OP NOTE Procedure(s): 1. Ultrasound-guided access to bilateral common femoral arteries. 2. Left SFA 3rd order vessel catheter placement 3. Left pelvic angiogram 4. Left lower extremity angio 5. Left external iliac artery angioplasty using a 6 mm balloon (Left) Surgeon(s): Kemar Velásquez M.B.B.S. Khasawneh, Mohammad A, M.B.B.S. Anesthesia Type: Monitored anesthesia care Pre-Operative Diagnosis: Peripheral Arterial Disease (HCC) [I73.9]. Brief Operative Note Details Specimens * No specimens in log * Drains * No drains in log * Estimated Blood Loss 50 mL Implants Implant Name Type Inv. Item Serial No. Edge Sawyer Lot No. LRB No. Used Action STNT INNOVA OTW [id number] - [id number] Vascular Stent STNT INNOVA OTW [id number] [employer] [id number] Left 1 Implanted Amy Hale ION ARTIST documented in this encounter Plan of Treatment Not on filedocumented as of this encounter Procedures Procedure Name Priority Date/Time Associated Comments Diagnosis ADULT OXYGEN Routine 04/18/2018 4:43 THERAPY PM FASHION ARTIST GLUCOSE POCT, B Routine 04/18/2018 3:09 Results f or this PM FASHION ARTIST procedure are i n the results section. ADULT OXYGEN Routine 04/18/2018 3:05 THERAPY PM FASHION ARTIST IR ENDOVASCULAR RAD - Routine 04/18/2018 2:59 Peripheral Results for this ANGIOPLASTY STENT (most inpatients PM FASHION ARTIST Arterial Disease pr ocedure are in ILIAC LOWER and all (HCC) the results EXTREMITY outpatients) section. ACT, POCT, B Routine 04/18/2018 1:52 Results for this PM FASHION ARTIST procedure are i n the results section. ACT, POCT, B Routine 04/18/2018 1:22 Results for this PM FASHION ARTIST procedure are i n the results section. ACT, POCT, B Routine 04/18/2018 12:53 Results for this PM FASHION ARTIST procedure are i n the results section. GLUCOSE POCT, B Routine 04/18/2018 12:51 Results for this PM FASHION ARTIST procedure are i n the results section. ACT, POCT, B Routine 04/18/2018 12:20 Results for this PM FASHION ARTIST procedure are i n the results section. GLUCOSE POCT, B Routine 04/18/2018 9:07 Results f or this AM FASHION ARTIST procedure are i n the results section. documented in this encounter Results Glucose, POCT (04/18/2018 3:09 PM FASHION ARTIST) athologist Signature Glucose, POCT, 102 70 - 140 04/18/2018 POC [facility] B mg/dL 3:14 PM FASHION ARTIST SERVICES Specimen Anatomical Collection Method Collection Time Receive d Time (Source) Location / / Volume Laterality Blood 04/18/2018 3:09 PM 8 3:14 FASHION ARTIST PM FASHION ARTIST Unknown Provider LAB POCT ORDERABLES-MANUAL Performing Organization Address City/[facility]/ZIP Code Phon e Number POC [facility] SERVICES [address] [place] [address] IR ENDOVASCULAR ANGIOPLASTY STENT ILIAC LOWER EXTREMITY (04/18/2018 2:59 PM FASHION ARTIST) Anatomical Region Laterality Modality Lower Extremity, Vascular Interventional RST LOS N/A X-Ray Angiography Specimen (Source) Anatomical Location Collection Method / Collectio n Time Received Time / Laterality Volume Narrative 04/18/2018 7:59 PM FASHION ARTIST This result has an attachment that is no t available. Performed by surgeon - see Op Note for r esult. Kemar Reyes IMG IR PROCEDURES (ABNORMAL) ACT (Activated Clotting Time), POCT (04/18/2018 1:52 PM FASHION ARTIST) athologist Signature Activated 218 (H) 84 - 139 04/18/[address] Clotting Time, sec 1:57 PM FASHION ARTIST [facility] POCT INPATIENT LABS Specimen Anatomical Collection Method Collection Time Receive d Time (Source) Location / / Volume Laterality Blood 04/18/2018 1:52 PM 8 1:57 FASHION ARTIST PM FASHION ARTIST Unknown Provider LAB POCT ORDERABLES - DEVICE Performing Organization Address City/[facility] Code Phon e Number POC RST [facility] INPATIENT LABS [address] [facility] [address] [address] (ABNORMAL) ACT (Activated Clotting Time), POCT (04/18/2018 1:22 PM FASHION ARTIST) athologist Signature Activated 223 (H) 84 - 139 04/18/[address] Clotting Time, sec 1:27 PM FASHION ARTIST [facility] POCT INPATIENT LABS Specimen Anatomical Collection Method Collection Time Receive d Time (Source) Location / / Volume Laterality Blood 04/18/2018 1:22 PM 8 1:28 FASHION ARTIST PM FASHION ARTIST Unknown Provider LAB POCT ORDERABLES - DEVICE Performing Organization Address [facility] Phon e Number POC RST [facility] INPATIENT LABS [address] [facility] [address] [address] (ABNORMAL) ACT (Activated Clotting Time), POCT (04/18/2018 12:53 PM FASHION ARTIST) P athologist Signature Activated 213 (H) 84 - 139 04/18/[address] Clotting Time, sec 12:57 PM FASHION ARTIST [facility] POCT INPATIENT LABS Specimen Anatomical Collection Method Collection Time Receive d Time (Source) Location / / Volume Laterality Blood 04/18/2018 12:53 04/18/2018 PM FASHION ARTIST 12:57 PM FASHION ARTIST Unknown Provider LAB POCT ORDERABLES - DEVICE Performing Organization Address [facility] Phon e Number POC RST [facility] INPATIENT LABS [address] [facility] [address] [address] Glucose, POCT (04/18/2018 12:51 PM FASHION ARTIST) P athologist Signature Glucose, POCT, 124 70 - 140 04/18/[address] B mg/dL 12:52 PM [facility] INPATIENT LABS Site ARTLINE 04/18/[address] 12:52 PM FASHION ARTIST [facility] INPATIENT LABS Specimen Anatomical Collection Method Collection Time Receive d Time (Source) Location / / Volume Laterality Blood 04/18/2018 12:51 04/18/2018 PM FASHION ARTIST 12:53 PM FASHION ARTIST Unknown Provider LAB POCT ORDERABLES-MANUAL Performing Organization Address [facility] Phon e Number POC RST [facility] INPATIENT LABS [address] [facility] [address] [address] (ABNORMAL) ACT (Activated Clotting Time), POCT (04/18/2018 12:20 PM FASHION ARTIST) P athologist Signature Activated 228 (H) 84 - 139 04/18/[address] Clotting Time, sec 12:25 PM FASHION ARTIST [facility] POCT INPATIENT LABS Specimen Anatomical Collection Method Collection Time Receive d Time (Source) Location / / Volume Laterality Blood 04/18/2018 12:20 04/18/2018 PM FASHION ARTIST 12:26 PM FASHION ARTIST Unknown Provider LAB POCT ORDERABLES - DEVICE Performing Organization Address City/State/ZIP Code Phon e Number POC RST [facility] INPATIENT LABS [address] [facility] [address] [address] (ABNORMAL) Glucose, POCT (04/18/2018 9:07 AM FASHION ARTIST) Analysis Performed At Patho logist Time Signature Glucose, POCT, 164 (H) 70 - 140 04/18/2018 POC [facility] LAB B mg/dL 9:11 AM FASHION ARTIST SERVICES Site Capillary 04/18/2018 POC [facility] LAB 9:11 AM FASHION ARTIST SERVICES Last Intake NPO 04/18/2018 POC [facility] LAB 9:11 AM FASHION ARTIST SERVICES Specimen Anatomical Collection Method Collection Time Receive d Time (Source) Location / / Volume Laterality Blood 04/18/2018 9:07 AM 8 9:11 FASHION ARTIST AM FASHION ARTIST Unknown Provider LAB POCT ORDERABLES-MANUAL Performing Organization Address [facility]/ZIP Code Phon e Number POC [facility] SERVICES [address] [place] [address] documented in this encounter Visit Diagnoses Diagnosis Peripheral Arterial Disease (HCC) - Prim dat Peripheral Arterial Disease (HCC) documented in this encounter Admitting Diagnoses Diagnosis Peripheral Arterial Disease (HCC) documented in this encounter Administered Medications Inactive Administered Medications - up to 3 most recent administrations Medication Order MAR Action Action Date Dose Rate Site electrolyte-A solution Continued from OR 04/18/2018 3:16 PM 20 mL/hr 20 mL/hr (PLASMA-LYTE A) FASHION ARTIST 20 mL/hr, intravenous, Continuous, Starting on Tue04/18/18 at 1430, PACU & Post-Op heparin 10 Units/mL in NaCl 0.9% 500 mL flush Given 2:25 PM FASHION ARTIST 250 mL solution miscellaneous, Once in surgery, OR use only, Starting on Tue04/18/18 at 0939, For 1 dose, Intra-Op, *Flush/Irrigation use only* insulin aspart U-100 Given 04/18/2018 9:29 AM FASHION ARTIST 2 Units Left Upper Abdomen injection 0-8 Units (NovoLOG FlexPen) 0-8 Units, subcutaneous, Every 2 hour PRN, high blood sugar, Nurse to determine and administer dose., Starting on Tue04/18/18 at 0908, For 2 doses, Pre-Op, Nurse to administer [...] or beverage within the past 4 hours. Contact provider managing diabetes to assess if correction scale insulin should be administered. For glucose less than or equal to [...] diabetes iodixanol (VISIPAQUE) 106.7 mg/mL in NaCl Given 04/18/2018 2:25 PM FASHION ARTIST 134 mL 0.9% injection 300 mL, injection, Once in surgery, OR use only, Starting on Tue04/18/18 at 0939, For 1 dose, Intra-Op lidocaine-bupivacaine 1%-0.25% infiltration Given 04/18/2018 11:59 AM FASHION ARTIST 16 mL injection 30 mL 30 mL, infiltration, Once in surgery, OR use only, Starting on Tue04/18/18 at 0940, For 1 dose, Intra-Op, Not for IV use metoprolol tablet 12.5 mg (LOPRESSOR) 12.5 mg, oral, Once as needed, if patien t did not take their last scheduled dose of beta terrell prior to arrival, Starting on Tue04/18/18 at 1052, For 1 dose, Pre-Op, Do not give if patient does not take scheduled beta bl ockers, if patient is receiving intravenous vasopressors or inotropes, if he art rate is less than 50 beats per minute, if systolic blood pres sure is less than 90 mmHg or if diastolic blood pressure is less than 40 mmHg, or if patient has an allergy to metoprolol. oxyCODONE IR tablet 10 mg (ROXICODONE) Given 04/18/2018 5:17 PM FASHION ARTIST 10 mg 10 mg, oral, Every 4 hours PRN, severe pain or score 7-10 of 10, Starting on Tue04/18/18 at 1642, Administer if pain is unrelieved by acetaminophen. Do not give more than 10 mg of oxycodone in 4 hours. Begin oral narcotics ONLY when tolerating oral diet. sodium chloride injection 10 mL 10 mL, intravenous, As needed, line care , Starting on Tue04/18/18 at 0908, Pre-Op, Peripheral Intravenous Catheter and Rapid Infusion Cat heter, prior to blood sampling, post blood transfusion or post blood samplin g sodium chloride injection 3 mL 3 mL, intravenous, As needed, line care, Starting on Tue04/18/18 at 0908, Pre-Op, Prior to and following infusion and betw een multiple consecutive infusions: sodium chloride 0.9 % injection sodium chloride injection 3 mL 3 mL, intravenous, Every 12 hours scheduled, First dos e on Tue04/18/18 at 2100, Pre-Op, Peripheral Intravenous Catheter and Rapid Infu neisha Catheter, when no infusion to maintain patency documented in this encounter Active and Recently Administered Medications Times are shown in FASHION ARTIST. Scheduled Medication Order 04/16/2018 04/17/2018 04/18/2018 acetaminophen tablet 1,000 mg (TYLENOL) 1718 (Not Given - Provider: Niya Levy R.N. - Reason: Patient/family refused) 1,000 mg, oral, 4 times daily, First dose on Tue04/18/18 at 1700 ceFAZolin injection 2,000 mg (ANCEF) (COMPLETED) 1150 (Given - Provider: Lawrence Sanford APRN, KATI)1158 (Given - Provider: Lawrence Sanford APRN, CRNA - Comment: first 2 gm infiltrated ) 2,000 mg (rounded from 1,982.5 mg = 25 m g/kg ? 79.3 kg), intravenous, Once, On Tue04/18/18 at 0945, For 1 dose, Intra-Op, Preoperatively within 1 hour prior to surgical incision [place] IV push over 3 minutes. Add 5 mL NS to 1 gram vial fo r a final concentration of 200 mg/mL., Drug Monitoring Program: Pharmacist to adjust medication dosing based on indication and drug clearance factors., Indications: Prophylaxis, surgical sodium chloride injection 3 mL 3 mL, intravenous, Every 12 hours schedu led, First dose on Tue04/18/18 at 2100, Pre-Op, Peripheral Intravenous Catheter and Rapid Infusion Catheter, when no infusion to maintain patency Continuous Medication Order 04/16/2018 04/17/2018 04/18/2018 electrolyte-A solution (PLASMA-LYTE A) 1516 (Continued from OR - Provider: Nilda Monzon RFeiNFei)1626 (Stopped - Provider: Niya Levy R.N. - Comment: was not running when pt came back from PACU) 20 mL/hr, intravenous, Continuous, Start ing on Tue04/18/18 at 1430, PACU & Post-Op PRN Medication Order 04/16/2018 04/17/2018 04/18/2018 dexamethasone injection 4 mg (DECADRON) 4 mg, intravenous, Once as needed, nause a, vomiting, Starting Tue04/18/18 at 1642, For 1 dose, Give only if NOT given during the pre or intraoperative period. If ondansetron ordered, give dexamethasone with first dose of ondansetron. droperidol injection 0.625 mg (INAPSINE) 0.625 mg, intravenous, Every 6 hours PRN , nausea, vomiting, Starting Tue04/18/18 at 1642, For 48 hours, Total of 3 doses in 24 hour period. RASS must be -2 or higher to administer. Reassess for nausea o r vomiting after at least 10 minutes. If nausea or vomiting persists administer next ordered antiemetic medications (order for antiemetic medication administration ondansetron then droperidol then promethazine)., Indications: Nausea and Vomiting heparin 10 Units/mL in NaCl 0.9% 500 mL flush solution (COMPLETE D) 1425 (Given - Provider: Frankie BanksBFeiSFei) miscellaneous, Once in surgery, OR use o nly, Starting on Tue04/18/18 at 0939, For 1 dose, Intra-Op, *Flush/Irrigation use only* insulin aspart U-100 injection 0-8 Units (NovoLOG FlexPen) 0929 (Given - Provider: Siria Miller R.N.) 0-8 Units, subcutaneous, Every 2 hour SD N, high blood sugar, Nurse to determine and administer dose., Starting on Tue04/18/18 at 0908, For 2 doses, Pre-Op, Nurse to administer Aspart (Novolog) Insulin s ubcutaneous as needed every 2 hours for up to 2 doses per correction scale. First dose STAT. Do not administer a correction Insulin dose if glucose is greater than 140 mg/dL and a) It is within 2 hours of any rapid acting or short acting Insu zara and/or b) the patient has consumed sugar or carbohydrate containing food or beverage within the past 4 hours. Contact provider managing diabetes to assess if correction scale insulin should be admin istered. For glucose less than or equal to 70 mg/dL - initiate treatment of hypoglycemia., Insulin Aspart: Correction Scale Insulin (For Diabetes Mellitus diagnos is), 71 - 139: 0 units, 140 - 179: 2 uni ts, 180 - 219: 4 units, 220 - 259: 6 units, 260 - 299: 8 units, Greater than or equal to 300: Call provider managing diabetes iodixanol (VISIPAQUE) 106.7 mg/mL in NaCl 0.9% injection (COMPLE GERALD) 1425 (Given - Provider: Oracio Banks.B.B.S.) 300 mL, injection, Once in surgery, OR u se only, Starting on Tue04/18/18 at 0939, For 1 dose, Intra-Op lidocaine-bupivacaine 1%-0.25% infiltration injection 30 mL (COM PLETED) 1159 (Given - Provider: Dharmesh Castellanos, Oracio.B.B.S.) 30 mL, infiltration, Once in surgery, OR use only, Starting on Tue04/18/18 at 0940, For 1 dose, Intra-Op, Not for IV use metoprolol tablet 12.5 mg (LOPRESSOR) 12.5 mg, oral, Once as needed, if patien t did not take their last scheduled dose of beta terrell prior to arrival, Starting on Tue04/18/18 at 1052, For 1 dose, Pre-Op, Do not give if patient does not ta ke scheduled beta blockers, if patient i s receiving intravenous vasopressors or inotropes, if heart rate is less than 50 beats per minute, if systolic blood pressure is less than 90 mmHg or if diastolic blood pressure is less than 40 mmHg, or if patient has an allergy to metoprolol. ondansetron (PF) injection 4 mg (ZOFRAN) 4 mg, intravenous, Every 6 hours PRN, na usea, vomiting, Starting Tue04/18/18 at 1642, For 48 hours, Reassess for nausea or vomiting after at least 10 minutes. If nausea or vomiting persists administer n ext ordered antiemetic medications (orde r for antiemetic medication administration ondansetron then droperidol then promethazine). oxyCODONE IR tablet 10 mg (ROXICODONE) 1717 (Given - Provider: Niya Levy R.N.) 10 mg, oral, Every 4 hours PRN, severe p ain or score 7-10 of 10, Starting on Tue04/18/18 at 1642, Administer if pain is unrelieved by acetaminophen. Do not give more than 10 mg of oxycodone in 4 hours. Begin oral narcotics ONLY when tolerating oral diet. oxyCODONE IR tablet 5 mg (ROXICODONE) 5 mg, oral, Every 4 hours PRN, mild pain or score 1-3 of 10, moderate pain or score 4-6 of 10, Starting Tue04/18/18 at 1642, Administer if pain is unrelieved by acetaminophen. May repeat dose once after 1 hour for persistent pain not to excee d 10 mg in 4 hours. Begin oral narcotics ONLY when tolerating oral diet. promethazine injection 6.25 mg (PHENERGAN) 6.25 mg, intravenous, Every 6 hours PRN, nausea, vomiting, Starting Tue04/18/18 at 1642, For 48 hours, RASS must be -2 or higher to administer. Reassess for nausea/vomiting after at least 10 minutes. If nausea or vomiting persists administer next ordered antiemetic medications (order for antiemetic medication administration ondansetron then droperidol then promethazine). sodium chloride injection 10 mL 10 mL, intravenous, As needed, line care , Starting on Tue04/18/18 at 0908, Pre- Op, Peripheral Intravenous Catheter and Rapid Infusion Catheter, prior to blood sampling, post blood transfusion or post blood sampling sodium chloride injection 3 mL 3 mL, intravenous, As needed, line care, Starting on Tue04/18/18 at 0908, Pre- Op, Prior to and following infusion and between multiple consecutive infusions: sodium chloride 0.9 % injection documented in this encounter Additional Health Concerns Assessment Noted Time PHQ-9 Depression Total Score: 3 01/03/2018 10:38 AM CD T documented as of this encounter
--- OUTSIDE RECORDS SUMMARY | 2022-03-16 12:26 | XMS_ITS | Encounter Summary ---
:1950 Author Organization [facility] Address [address] [place] [address] Care Team Providers Name Role Phone Unavailable Primary Care Provider Unavailable Reason for Visit Reason Onset Date Comments test only 03/09/2018 Encounter Details Date Type Department Care Team Description 03/09/2018 Clinical Communication Division of Vascular Eicvidya, test only and Endovascular Stacy Mcgee M.S., Surgery in [facility] [address] [place] [address] [address] [place] [id number] [phone] Social History Tobacco Use Types Packs/Day Years Used Date Smoking Tobacco: Heavy Smoker Cigarettes 0.5 Smokeless Tobacco: Never Alcohol Use [...] How often do you attend evangelical or yazidism services? 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 Walton Telephone Encounter - Stacy Correia M.S., R.N. - 03/09/2018 6:24 PM CDT Please schedule Mr. Walton's CTA and creatinine as first available. Dr. Velásquez will review and write. documented in this encounter Plan of Treatment Not on filedocumented as of this encounter Visit Diagnoses Not on filedocumented in this encounter Additional Health Concerns Assessment Noted Time PHQ-9 Depression Total Score: 3 01/03/2018 10:38 AM CD T documented as of this encounter
--- OUTSIDE RECORDS SUMMARY | 2022-03-16 12:26 | XMS_ITS | Encounter Summary ---
:1950 Author Organization [facility] Address [address] [place] [address] Care Team Providers Name Role Phone Unavailable Primary Care Provider Unavailable Reason for Visit Auth/Cert Specialty Diagnoses / Procedures Referred By Contact Refer red To Contact Diagnoses Peripheral Arterial Disease (HCC) Procedures NH REVASC OPN/PERC ILIAC W STENT NH REVASC ILIAC ARTY STNT ANGPLST NH ANGIOGRAPHY EXT UNILAT S&I NH US GUIDE VASC ACCESS IR ENDOVASCULAR ANGIOPLASTY STENT ILIAC LOWER EXTREMITY; right femoral access Referral ID Status Reason Start Date Expiration Date Visits Requ ested Visits Authorized [id number] 1 1 Encounter Details Date Type Department Care Team Description 04/18/2018 Anesthesia Event RST ROMB FRAN OR Lawrence Allen, [address] [facility] [place] [address] [address] [facility] [phone] [place] [phone] (Wo rk) Anesthesia Record Procedure Summary Procedure Name Responsible Anesthesia Start Anesthesia Stop Anesthesiologist Time Time 1. Ultrasound-guided Lawrence Allen M.D. 04/18/18 1127 1506 access to bilateral common femoral arteries. 2. Left SFA 3rd order vessel catheter placement 3. Left pelvic angiogram 4. Left lower extremity angio 5. Left external iliac artery angioplasty using a 6 mm balloon (Left) Events Date Time Event Comment 04/18/2018 0725 1127 In Room 1127 An Start Machine/Equipmen t Checked Infection Precautions Foll owed Procedure/Site Verified NPO Sta tus Verified Supine Standard ASA Mon itors Applied 1134 Turnover to Proceduralist 1158 Proc Start 1452 Turnover to ANE Staff 1453 an stop data 1454 Proc Fin 1459 Out of Room 1506 An End I completed my h andoff to the receiving staff [facility] 1. Identified the patient 2. Ident ified the responsible provider 3. Revi ewed the pertinent medical history 4. Discu ssed the surgical course 5. Reviewed intra-o p anesthesia management and issues during an esthesia 6. Set expectations for post-procedure period 7. Allowed opportun ity for questions and acknowledgement of understanding. Name Total midazolam PF injection 1 mg/mL 2 mg fentanyl injection 50 mcg/mL 100 mcg propofol 10 mg/mL infusion 205.39 mg propofol 10 mg/mL injection 20 mg lidocaine 2% (mg) injection 40 mg ondansetron PF 4 mg/2 mL injection 4 mg ceFAZolin injection 2,000 mg (ANCEF) 3 g phenylephrine 100 mcg/mL injection 1,800 mcg heparin 1,000 units/mL injection 7,000 Units protamine 10 mg/mL injection 40 mg Lactated Ringers Free Drip 100 mL plasmalyte-A free drip 1,000 mL Agents No agents on file. Blood No blood administrations on file. 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 Catheter Size: 20 G; COMPOSITION WEATHERBOARD INSTALLER Orientation: Right; Location: Hand; Removal Date: 04/18/18; Removal Time: 1957 documented in this encounter Social History Tobacco [...] week 03/25/2021 How often do you attend latter-day or congregational services? 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 - 04/18/2018 3:52 PM CST Patient: Onesimo Walton Procedure Summary Date: 04/18/18 Room / Location: [address] / [facility] in [place], [place] Anesthesia Start: 1127 Anesthesia Stop: 1506 Procedure: 1. Ultrasound-guided access to bilateral common femoral arteries. 2. Left SFA 3rd order vessel catheter placement 3. Left pelvic angiogram 4. Left lower extremity angio 5. Left external iliac artery angioplasty using a 6 mm balloon (Left ) Diagnosis: Peripheral Arterial Disease (HCC) (Peripheral Arterial Disease (HCC) [I73.9].) Provider: Kemar Velásquez M.B.BFeiSFei Responsible Provider: Lawrence Allen M.D. Anesthesia Type: MAC ASA Status: 3 Anesthesia Type: MAC Last vitals BP 103/77 (04/18/18 1530) Temp 37 ??C (04/18/18 1523) Pulse 69 (04/18/18 1540) Resp 18 (04/18/18 1540) SpO2 95 % (04/18/18 1543) Anesthesia Post Evaluation Patient Disposition: dismissal Cardiovascular status: hemodynamics (HR & BP) acceptable Respiratory status: patent airway with spontaneous effort Temperature: normothermic Oxygen requirements: room air Level of consciousness: awake Pain score: pain adequately controlled and/or at baseline Post Op nausea/vomiting: none Hydration status: euvolemic EE SAMPLER Anesthesia Preprocedure Evaluation - Lawrence Allen M.D. - 04/18/2018 7:24 AM CST Anesthesia Pre-Evaluation Pertinent components of the patient's history including current problem list, medical history, surgical history, family history, social history, medications and allergies were reviewed and updated as appropriate. The patient was examined and the Pre-op diagnosis, planned procedure, and H&P were reviewed and remain unchanged. PROBLEM LIST Relevant Problems CV (+) Hypertension And Chronic Kidney Disease Stage 1 To 4 (+) Hypertension NOS ENDO (+) Diabetes Mellitus Type 2 With Other Circulatory Complication Hyperglycemic (HCC) OBJECTIVE PHYSICAL EXAMINATION Airway (HEENT) Mallampati: III TM Distance: >3 FB Neck ROM: Full Mouth Opening: >3 cm Facies (pediatrics): normal Cardiovascular Rhythm: Regular Rate: Normal Cardiovascular Assessment: cardiovascular normal Pulmonary Pulmonary Assessment: Clear Neurological Neurologic Assessment:??alert Dental Dental Assessment: dentition intact ASSESSMENT / PLAN ANESTHESIA PLAN ASA: 3 Anesthesia Plan: MAC Patient seen and allergies reviewed; anesthesia plan and risks discussed directly with patient / legal guardian, or through an congressional representative; patient evaluated and approved for anesthesia / sedation. Use of blood products discussed with patient who consented to blood products. EE SAMPLER documented in this encounter Plan of Treatment Not on filedocumented as of this encounter Visit Diagnoses Not on filedocumented in this encounter Administered Medications Inactive Administered Medications - up to 3 most recent administrations Medication Order MAR Action Action Date Dose Rate Site ceFAZolin injection 2,000 mg Given 04/18/2018 11:58 AM COFFEE SAMPLER 1 g (ANCEF) 2,000 mg (rounded from 1,982.5 mg = 25 mg/kg ? 79.3 kg), intravenous, Once, On Tue04/18/18 at 0945, For 1 dose, Intra-Op, Preoperatively within 1 hour prior to surgical incision [place] IV push over 3 minutes. Add 5 mL NS to 1 gram vial for a final concentration of 200 mg/mL., Drug Monitoring Program: Pharmacist to adjust medication dosing based on indication and drug clearance factors., Indications: Prophylaxis, surgical Given 04/18/2018 11:50 AM COFFEE SAMPLER 2 g electrolyte-A solution (PLASMA-LYTE A) New Bag 04/18/2018 2:20 PM COFFEE SAMPLER intravenous, Continuous Infusion: Per Instructions PRN, Starting on Tue04/18/18 at 1130, Anesthesia Intra-op New Bag 04/18/2018 11:30 AM COFFEE SAMPLER fentaNYL injection (SUBLIMAZE) Given 04/18/2018 12:48 PM COFFEE SAMPLER 25 mcg intravenous, As needed, severe pain or score 7-10 of 10, Starting on Tue04/18/18 at 1141, Anesthesia Intra-op Given 04/18/2018 11:56 AM COFFEE SAMPLER 25 mcg Given 04/18/2018 11:41 AM COFFEE SAMPLER 50 mcg heparin (porcine) 1,000 unit/mL Given 04/18/2018 12:57 PM COFFEE SAMPLER 2, 000 Units injection As needed, Starting on Tue04/18/18 at 1207, Anesthesia Intra-op Given 04/18/2018 12:07 PM COFFEE SAMPLER 5,000 Units lactated ringers New Bag 04/18/2018 2:20 PM COFFEE SAMPLER intravenous, Continuous Infusion: Per Instructions PRN, Starting on Tue04/18/18 at 1130, Anesthesia Intra-op lidocaine (PF) (cardiac) injection Given 04/18/2018 11:33 AM COFFEE SAMPLER 40 mg intravenous, As needed, Starting on Tue04/18/18 at 1133, Anesthesia Intra-op midazolam (PF) injection (VERSED) Given 04/18/2018 11:56 AM COFFEE SAMPLER 1 mg As needed, Starting on Tue04/18/18 at 1140, Anesthesia Intra-op Given 04/18/2018 11:40 AM COFFEE SAMPLER 1 mg ondansetron (PF) injection (ZOFRAN) Given 04/18/2018 2:18 PM COFFEE SAMPLER 4 mg intravenous, As needed, nausea, vomiting, Starting on Tue04/18/18 at 1418, Anesthesia Intra-op phenylephrine injection Given 04/18/2018 2:20 PM COFFEE SAMPLER 200 mcg As needed, Starting on Tue04/18/18 at 1156, Anesthesia Intra-op Given 04/18/2018 1:25 PM COFFEE SAMPLER 200 mcg Given 04/18/2018 12:58 PM COFFEE SAMPLER 200 mcg propofol 10 mg/mL infusion Rate/Dose 04/18/2018 10 mcg/kg/min 4.76 m L/hr (DIPRIVAN) Change 12:03 PM COFFEE SAMPLER intravenous, Continuous Infusion: Per Instructions PRN, Starting on Tue04/18/18 at 1135, Anesthesia Intra-op Rate/Dose Change 04/18/2018 11:57 AM COFFEE SAMPLER 25 mcg/kg/min 11.9 mL/hr New Bag 04/18/2018 11:35 AM COFFEE SAMPLER 50 mcg/kg/min 23.8 mL/hr propofol injection (DIPRIVAN) Given 04/18/2018 11:56 AM COFFEE SAMPLER 20 mg intravenous, As needed, Starting on Tue04/18/18 at 1156, Anesthesia Intra-op protamine injection Given 04/18/2018 2:16 PM COFFEE SAMPLER 20 mg As needed, Starting on Tue04/18/18 at 1411, Anesthesia Intra-op Given 04/18/2018 2:14 PM COFFEE SAMPLER 15 mg Given 04/18/2018 2:11 PM COFFEE SAMPLER 5 mg documented in this encounter Additional Health Concerns Assessment Noted Time PHQ-9 Depression Total Score: 3 01/03/2018 10:38 AM CD T documented as of this encounter
--- OUTSIDE RECORDS SUMMARY | 2022-03-16 12:26 | XMS_ITS | Encounter Summary ---
:1950 Author Organization [facility] Address [address] [place] [address] Care Team Providers Name Role Phone Unavailable Primary Care Provider Unavailable Encounter Details Date Type Department Care Team Description 03/15/2018 Hospital Encounter Department of Kemar Velásquez Periphe ral Arterial Laboratory Medicine M.B.B.S. Disease (HCC) and Pathology, [address] [place] [address], in [place], [place] [address] [place] [address] [place], [place] (Work) [address] [phone] Social History Tobacco Use Types Packs/Day Years [...] week 03/25/2021 How often do you attend sikh or temple services? Never 03/25/2021 Do you belong to any clubs or organizations such as sikh N o 03/25/2021 groups, unions, fraternal or [...] or slept in a chcf (including now)? 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 ferrous sulfate 325 mg Take 1 tablet (65 90 tablet 3 201704/21/2018 (65 mg iron) tablet mg of iron total) by mouth daily. gabapentin (NEURONTIN) Take 1 capsule (300 60 capsule 5 08/201704/21/2018 300 mg capsule mg total) by mouth 2 (two) times a day. insulin lispro (HumaLOG Inject 0.1 mL (10 15 mL 3 02/0307/13/2018 [place]) 100 unit/mL Units total) under injection the skin 3 (three) times a day with meals. lancets [facility] [place] item 0 08/23/2014 9 covered by [...] hours. oxyCODONE-acetaminophen TAKE ONE TABLET BY 0 /2 05/08/2020 (PERCOCET) 5-325 mg per MOUTH TWICE [...] Procedure Name Priority Date/Time Associated Comments Diagnosis CREATININE WITH Routine 03/15/2018 7:42 AM Peripheral Arterial Results for this EGFR, S/P CDT Disease (HCC) procedure are in the results section. documented in this encounter Results (ABNORMAL) Creatinine with Estimated GFR (03/15/2018 7:42 AM CDT) [facility] Method Time Signature Creatinine 1.54 (H) 0.74 - 03/15/2018 [facility] 1.35 9:28 AM CDT LABORATORIES - mg/dL [facility] eGFR-Non 46 (L) >=60 03/15/2018 [facility] Black/ mL/min/BS 9:28 AM CDT LABORATORIES - [place] [facility] Comment: ----ADDITIONAL INFORMATION---- Estimated GFR calculated using the 2009 CKD_EPI creatinine equation. eGFR-Black/ 54 (L) >=60 mL/min/BSA 03/15/2018 9:28 [facility] [place] AM CDT LABORATORIES - [facility] Comment: ----ADDITIONAL INFORMATION---- Estimated GFR calculated using the 2009 CKD_EPI creatinine equation. Specimen Anatomical Collection Method Collection Time Receive d Time (Source) Location / / Volume Laterality Blood (Blood, 03/15/2018 7:42 AM 03/15/20 18 8:04 Venous) CDT AM CDT Kemar Reyes LAB BLOOD ADD-ON Performing Organization Address City/State/ZIP Code Phon e Number [facility]ORATORIES - [address] [place] [address] [facility] documented in this encounter Visit Diagnoses Diagnosis Peripheral Arterial Disease (HCC) documented in this encounter Additional Health Concerns Assessment Noted Time PHQ-9 Depression Total Score: 3 01/03/2018 10:38 AM CD T documented as of this encounter
--- OUTSIDE RECORDS SUMMARY | 2022-03-16 12:26 | XMS_ITS | Encounter Summary ---
:1950 Author Organization [facility] Address [address] [place] [address] Care Team Providers Name Role Phone Unavailable Primary Care Provider Unavailable Reason for Visit Reason Comments Med Refill Encounter Details Date Type Department Care Team Description 02/23/2018 Refill Department of Family Medicine, Bambi Adler Med Refill [facility], in Renee Phillips M.D. 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 Nurse Review: DME Request Provider: Renee Catalan M.D. 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
--- OUTSIDE RECORDS SUMMARY | 2022-03-16 12:26 | XMS_ITS | Encounter Summary ---
:1950 Author Organization [facility] Address [address] [place] [address] Care Team Providers Name Role Phone Unavailable Primary Care Provider Unavailable Encounter Details Date Type Department Care Team Description 03/20/2018 Clinical Communication [facility] [place] [address] [facility] [place] [address] [phone] Social History Tobacco Use Types Packs/Day Years [...] How often do you attend denominational or christian services? Never 03/25/2021 Do you [...] or slept in a fdc (including now)? 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 Please advise. R OPERATOR documented in this encounter Plan of Treatment Not on filedocumented as of this encounter Visit Diagnoses Not on filedocumented in this encounter Additional Health Concerns Assessment Noted Time PHQ-9 Depression Total Score: 3 01/03/2018 10:38 AM CD T documented as of this encounter
--- OUTSIDE RECORDS SUMMARY | 2022-03-16 12:26 | XMS_ITS | Encounter Summary ---
:1950 Author Organization [facility] Address [address] [place] [address] Care Team Providers Name Role Phone Unavailable Primary Care Provider Unavailable Reason for Visit Reason Comments Med Refill Encounter Details Date Type Department Care Team Description 04/04/2018 Refill Department of Family Medicine, Bambi Adler Med Refill [facility], in [place]enee Phillips M.D. [place] [address] [place] [address] [place] [address] [phone] Social History Tobacco Use Types Packs/Day Years [...] How often do you attend judaism or hindu services? 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
--- OUTSIDE RECORDS SUMMARY | 2022-03-16 12:26 | XMS_ITS | Encounter Summary ---
:1950 Author Organization [facility] Address [address] [place] [address] Care Team Providers Name Role Phone Unavailable Primary Care Provider Unavailable Encounter Details Date Type Department Care Team Description 04/18/2018 Ancillary Procedure Department of Vascular Surgery Social History Tobacco Use Types Packs/Day Years [...] How often do you attend gnosticism or moravian services? 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 documented in this encounter Results VASCULAR SURGERY IMAGE EXAM (04/18/2018 10:10 AM ENVIRONMENTAL MAINTENANCE WORKER) Specimen (Source) Anatomical Collection Method Collection Time Re ceived Time Location / / Volume Laterality 04/18/2018 10:09 AM ENVIRONMENTAL MAINTENANCE WORKER Narrative [facility] - 04/18/2018 12:36 PM ENVIRONMENTAL MAINTENANCE WORKER This order has been created and auto-finalized to support the import of images acquired without order. The clini ammy documentation to support these images can be found on the encounter dioni t produced images. Provider Not In System IMG NON RAD IMAGING PROCEDUR ES Performing Organization Address City/State/ZIP Code Phon e Number IIOK IIOK NA documented in this encounter Visit Diagnoses Not on filedocumented in this encounter Additional Health Concerns Assessment Noted Time PHQ-9 Depression Total Score: 3 01/03/2018 10:38 AM CD T documented as of this encounter
--- OUTSIDE RECORDS SUMMARY | 2022-03-16 12:26 | XMS_ITS | Encounter Summary ---
:1950 Author Organization [facility] Address [address] [place] [address] Care Team Providers Name Role Phone Unavailable Primary Care Provider Unavailable Encounter Details Date Type Department Care Team Description 02/16/2018 Orders Only Department of Neurology Yessy Cohen, Restless Leg Syndrome in [facility] ariel Brock, M.P.H. (Primary Dx) [address] [facility] [place] [phone] Social History Tobacco Use Types Packs/Day [...] How often do you attend restorationist or orthodoxy services? 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 ??Higher concentr ations of biotin may be found in multivitamins, hair/nail supple ments, and workout supplements. ??If the result does not [facility] clinical observations, repeat testing after patient [...] Organization Address City/State/ZIP Code Phon e Number [facility] [address], [place] [address] LAB documented in this encounter Visit Diagnoses Diagnosis Restless Leg Syndrome - Primary documented in this encounter Additional Health Concerns Assessment Noted Time PHQ-9 Depression Total Score: 3 01/03/2018 10:38 AM CD T documented as of this encounter
--- OUTSIDE RECORDS SUMMARY | 2022-03-16 12:26 | XMS_ITS | Encounter Summary ---
:1950 Author Organization [facility] Address [address] [place] [address] Care Team Providers Name Role Phone Unavailable Primary Care Provider Unavailable Reason for Visit Reason Onset Date Comments deductible met 04/20/2018 Encounter Details Date Type Department Care Team Description 04/20/2018 Clinical [facility] Medicine, Renee Hampton, Edgar, in [place] [address] [place] [phone] Social History Tobacco Use Types Packs/Day [...] How often do you attend pentecostal or restorationist services? Never 03/25/2021 Do you belong to [...] or slept in a assisted (including now)? 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 SHOOTER Telephone Encounter - Renee Catalan M.D. - 04/24/2018 5:29 PM COAL SHOOTER We discussed colon cancer screening today. He would like to have that done but we need to clarify Plavix use. SHOOTER Telephone Encounter - Maxi Strong - 04/20/2018 11:21 AM CST Reason for Communication: Pt calling to set up lab work. Pt says that he has met his deductible for the year- wondering if there was anything else Dr Duran would think to have done- before the end of the year. Noted that there was another order in [facility],but he thought he had that done in [place]. Current Can Nursing/Provider leave a detailed message: yes Did the patient refuse triage through Nurse line? (for symptom based concerns)not offered Action Needed: please call Name of Medication (if relevant): SHOOTER documented in this encounter Plan of Treatment Not on filedocumented as of this encounter Visit Diagnoses Not on filedocumented in this encounter Additional Health Concerns Assessment Noted Time PHQ-9 Depression Total Score: 3 01/03/2018 10:38 AM CD T documented as of this encounter
--- OUTSIDE RECORDS SUMMARY | 2022-03-16 12:26 | XMS_ITS | Encounter Summary ---
:1950 Author Organization [facility] Address [address] [place] [address] Care Team Providers Name Role Phone Unavailable Primary Care Provider Unavailable Reason for Visit Reason Comments Med Refill Encounter Details Date Type Department Care Team Description 04/05/2018 Refill Department of Family Medicine, Bambi Adler Med Refill [facility], in Renee Phillips M.D. [place] [address] [place] [address] [place] [address] [phone] Social History Tobacco Use Types Packs/Day Years [...] How often do you attend hinduism or adventist services? 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
--- OUTSIDE RECORDS SUMMARY | 2022-03-16 12:26 | XMS_ITS | Encounter Summary ---
:1950 Author Organization [facility] Address [address] [place] [address] Care Team Providers Name Role Phone Unavailable Primary Care Provider Unavailable Reason for Visit Auth/Cert Specialty Diagnoses / Procedures Referred By Contact Refer red To Contact Diagnoses Peripheral Arterial Disease (HCC) Procedures IN REVASC OPN/PERC ILIAC W STENT IN REVASC ILIAC ARTY STNT ANGPLST IN ANGIOGRAPHY EXT UNILAT S&I IN US GUIDE VASC ACCESS IR ENDOVASCULAR ANGIOPLASTY STENT ILIAC LOWER EXTREMITY; right femoral access Referral ID Status Reason Start Date Expiration Date Visits Requ ested Visits Authorized [id number] 1 1 Encounter Details Date Type Department Care Team Description 04/18/2018 Hospital Encounter Outpatient Surgery [facility] [place] [address] [facility] [address] [place] [phone] Social History Tobacco Use Types Packs/Day Years [...] How often do you attend adventism or baptist services? Never 03/25/2021 Do you [...] or slept in a half-way (including now)? 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 documented as of this encounter Last Filed Vital Signs Vital Sign Reading Time Taken Comments Blood Pressure 154/61 04/18/2018 7:05 PM SUCTION DRUM DRIER OPERATOR Pulse 78 04/18/2018 7:05 PM SUCTION DRUM DRIER OPERATOR Temperature 37 ??C (98.6 ??F) 04/18/2018 6:00 PM SUCTION DRUM DRIER OPERATOR Respiratory Rate 16 04/18/2018 7:05 PM SUCTION DRUM DRIER OPERATOR Oxygen Saturation 92% 04/18/2018 7:05 PM SUCTION DRUM DRIER OPERATOR Inhaled Oxygen Concentration - - Weight 79.3 kg (174 lb 13.2 oz) 04/18/2018 9:19 AM SUCTION DRUM DRIER OPERATOR Height 173.4 cm (5' 8.27) 04/18/2018 9:19 AM SUCTION DRUM DRIER OPERATOR Body Mass Index 26.37 04/18/2018 9:19 AM SUCTION DRUM DRIER OPERATOR documented in this encounter Discharge Instructions AttachmentsThe following attachments cannot be sent through Care Everywhere.Care Following Coronary Angiogram/Angioplasty/Stent Placement ??? Femoral (Leg) (Fijian)documented in this encounter Medications at Time of [...] of iron total) by mouth daily. lancets [facility] Dispense item 0 [...] as of this encounter Progress Notes Michelle Meier APRN, C.NRinku., M.S.N. - 04/18/2018 7:20 PM CST CHIEF [...] with Dr. Velásquez in 3-4 months. ION DRUM DRIER OPERATOR documented in this encounter H&P Notes Dharmesh [...] exam Assessment and Plan: Plan Unchanged ION DRUM DRIER OPERATOR documented in this encounter OR Notes [...] came up and over with a 6 Latvian 55 cm Ang sheath. The external iliac [...] Implant Name Type Inv. Item Serial No. Stock Puller Lot No. LRB No. Used Action STNT INNOVA OTW [id number] - [id number] Vascular Stent STNT INNOVA OTW [id number] [employer] [id number] Left 1 Implanted Shonda ReneeSFei ION DRUM DRIER OPERATOR Brief Op Note - Dharmesh Castellanos M.B.B.SFei - 04/18/2018 11:58 AM SUCTION DRUM DRIER OPERATOR BRIEF OP NOTE Procedure(s): 1. Ultrasound-guided access to bilateral common femoral arteries. 2. Left SFA 3rd order vessel catheter placement 3. Left pelvic angiogram 4. Left lower extremity angio 5. Left external iliac artery angioplasty using a 6 mm balloon (Left) Surgeon(s): Shuja, Kemar, M.B.BDharmesh Baum M.B.B.S. Anesthesia Type: Monitored anesthesia care Pre-Operative Diagnosis: Peripheral Arterial Disease (HCC) [I73.9]. Brief Operative Note Details Specimens * No specimens in log * Drains * No drains in log * Estimated Blood Loss 50 mL Implants Implant Name Type Inv. Item Serial No. Stock Puller Lot No. LRB No. Used Action STNT INNOVA OTW [id number] - [id number] Vascular Stent STNT INNOVA OTW [id number] [employer] [id number] Left 1 Implanted Amy Hale ION DRUM DRIER OPERATOR documented in this encounter Plan of Treatment Not on filedocumented as of this encounter Procedures Procedure Name Priority Date/Time Associated Comments Diagnosis ADULT OXYGEN Routine 04/18/2018 4:43 THERAPY PM SUCTION DRUM DRIER OPERATOR GLUCOSE POCT, B Routine 04/18/2018 3:09 Results f or this PM SUCTION DRUM DRIER OPERATOR procedure are i n the results section. ADULT OXYGEN Routine 04/18/2018 3:05 THERAPY PM SUCTION DRUM DRIER OPERATOR IR ENDOVASCULAR RAD - Routine 04/18/2018 2:59 Peripheral Results for this ANGIOPLASTY STENT (most inpatients PM SUCTION DRUM DRIER OPERATOR Arterial Disease pr ocedure are in ILIAC LOWER and all (HCC) the results EXTREMITY outpatients) section. ACT, POCT, B Routine 04/18/2018 1:52 Results for this PM SUCTION DRUM DRIER OPERATOR procedure are i n the results section. ACT, POCT, B Routine 04/18/2018 1:22 Results for this PM SUCTION DRUM DRIER OPERATOR procedure are i n the results section. ACT, POCT, B Routine 04/18/2018 12:53 Results for this PM SUCTION DRUM DRIER OPERATOR procedure are i n the results section. GLUCOSE POCT, B Routine 04/18/2018 12:51 Results for this PM SUCTION DRUM DRIER OPERATOR procedure are i n the results section. ACT, POCT, B Routine 04/18/2018 12:20 Results for this PM SUCTION DRUM DRIER OPERATOR procedure are i n the results section. GLUCOSE POCT, B Routine 04/18/2018 9:07 Results f or this AM SUCTION DRUM DRIER OPERATOR procedure are i n the results section. documented in this encounter Results Glucose, POCT (04/18/2018 3:09 PM SUCTION DRUM DRIER OPERATOR) athologist Signature Glucose, POCT, 102 70 - 140 04/18/2018 POC [facility] B mg/dL 3:14 PM SUCTION DRUM DRIER OPERATOR SERVICES Specimen Anatomical Collection Method Collection Time Receive d Time (Source) Location / / Volume Laterality Blood 04/18/2018 3:09 PM 8 3:14 SUCTION DRUM DRIER OPERATOR PM SUCTION DRUM DRIER OPERATOR Unknown Provider LAB POCT ORDERABLES-MANUAL Performing Organization Address [facility] Phon e Number POC [facility] [address] [place] [address] IR ENDOVASCULAR ANGIOPLASTY STENT ILIAC LOWER EXTREMITY (04/18/2018 2:59 PM SUCTION DRUM DRIER OPERATOR) Anatomical Region Laterality Modality Lower Extremity, Vascular Interventional RST LOS N/A X-Ray Angiography Specimen (Source) Anatomical Location Collection Method / Collectio n Time Received Time / Laterality Volume Narrative 04/18/2018 7:59 PM SUCTION DRUM DRIER OPERATOR This result has an attachment that is no t available. Performed by surgeon - see Op Note for r esult. Kemar Reyes IMG IR PROCEDURES (ABNORMAL) ACT (Activated Clotting Time), POCT (04/18/2018 1:52 PM SUCTION DRUM DRIER OPERATOR) athologist Signature Activated 218 (H) 84 - 139 04/18/[address] Clotting Time, sec 1:57 PM SUCTION DRUM DRIER OPERATOR [facility] POCT INPATIENT LABS Specimen Anatomical Collection Method Collection Time Receive d Time (Source) Location / / Volume Laterality Blood 04/18/2018 1:52 PM 8 1:57 SUCTION DRUM DRIER OPERATOR PM SUCTION DRUM DRIER OPERATOR Unknown Provider LAB POCT ORDERABLES - DEVICE Performing Organization Address [facility] Phon e Number POC RST [facility] INPATIENT LABS [address] [facility] [address] [address] (ABNORMAL) ACT (Activated Clotting Time), POCT (04/18/2018 1:22 PM SUCTION DRUM DRIER OPERATOR) athologist Signature Activated 223 (H) 84 - 139 04/18/[address] Clotting Time, sec 1:27 PM SUCTION DRUM DRIER OPERATOR [facility] POCT INPATIENT LABS Specimen Anatomical Collection Method Collection Time Receive d Time (Source) Location / / Volume Laterality Blood 04/18/2018 1:22 PM 8 1:28 SUCTION DRUM DRIER OPERATOR PM SUCTION DRUM DRIER OPERATOR Unknown Provider LAB POCT ORDERABLES - DEVICE Performing Organization Address [facility] Phon e Number POC RST [facility] INPATIENT LABS [address] [facility] [address] [address] (ABNORMAL) ACT (Activated Clotting Time), POCT (04/18/2018 12:53 PM SUCTION DRUM DRIER OPERATOR) P athologist Signature Activated 213 (H) 84 - 139 04/18/[address] Clotting Time, sec 12:57 PM SUCTION DRUM DRIER OPERATOR [facility] POCT INPATIENT LABS Specimen Anatomical Collection Method Collection Time Receive d Time (Source) Location / / Volume Laterality Blood 04/18/2018 12:53 04/18/2018 PM SUCTION DRUM DRIER OPERATOR 12:57 PM SUCTION DRUM DRIER OPERATOR Unknown Provider LAB POCT ORDERABLES - DEVICE Performing Organization Address [facility] Phon e Number POC RST [facility] INPATIENT LABS [address] [facility] [address] [address] Glucose, POCT (04/18/2018 12:51 PM SUCTION DRUM DRIER OPERATOR) P athologist Signature Glucose, POCT, 124 70 - 140 04/18/[address] B mg/dL 12:52 PM SUCTION DRUM DRIER OPERATOR [facility] INPATIENT LABS Site ARTLINE 04/18/[address] 12:52 PM SUCTION DRUM DRIER OPERATOR [facility] INPATIENT LABS Specimen Anatomical Collection Method Collection Time Receive d Time (Source) Location / / Volume Laterality Blood 04/18/2018 12:51 04/18/2018 PM SUCTION DRUM DRIER OPERATOR 12:53 PM SUCTION DRUM DRIER OPERATOR Unknown Provider LAB POCT ORDERABLES-MANUAL Performing Organization Address [facility] Phon e Number POC RST [facility] INPATIENT LABS [address] [facility] [address] [address] (ABNORMAL) ACT (Activated Clotting Time), POCT (04/18/2018 12:20 PM SUCTION DRUM DRIER OPERATOR) P athologist Signature Activated 228 (H) 84 - 139 04/18/[address] Clotting Time, sec 12:25 PM SUCTION DRUM DRIER OPERATOR [facility] POCT INPATIENT LABS Specimen Anatomical Collection Method Collection Time Receive d Time (Source) Location / / Volume Laterality Blood 04/18/2018 12:20 04/18/2018 PM SUCTION DRUM DRIER OPERATOR 12:26 PM SUCTION DRUM DRIER OPERATOR Unknown Provider LAB POCT ORDERABLES - DEVICE Performing Organization Address [facility] Phon e Number POC RST [facility] INPATIENT LABS [address] [facility], [address] [address] (ABNORMAL) Glucose, POCT (04/18/2018 9:07 AM SUCTION DRUM DRIER OPERATOR) Analysis Performed At Patho logist Time Signature Glucose, POCT, 164 (H) 70 - 140 04/18/2018 POC [facility] B mg/dL 9:11 AM SUCTION DRUM DRIER OPERATOR SERVICES Site Capillary 04/18/2018 POC [facility] 9:11 AM SUCTION DRUM DRIER OPERATOR SERVICES Last Intake NPO 04/18/2018 POC [facility] 9:11 AM SUCTION DRUM DRIER OPERATOR SERVICES Specimen Anatomical Collection Method Collection Time Receive d Time (Source) Location / / Volume Laterality Blood 04/18/2018 9:07 AM 8 9:11 SUCTION DRUM DRIER OPERATOR AM SUCTION DRUM DRIER OPERATOR Unknown Provider LAB POCT ORDERABLES-MANUAL Performing Organization Address City/State/ZIP Code Phon e Number POC [facility] SERVICES [address] [place] [address] documented in this encounter Visit Diagnoses Diagnosis [...] PM 20 mL/hr 20 mL/hr (PLASMA-LYTE A) SUCTION DRUM DRIER OPERATOR 20 mL/hr, intravenous, Continuous, Starting on Tue04/18/18 at 1430, PACU & Post-Op insulin aspart U-100 Given 04/18/2018 9:29 AM SUCTION DRUM DRIER OPERATOR 2 Units Left Upper Abdomen injection 0-8 [...] equal to 300: Call provider managing diabetes metoprolol tablet 12.5 mg (LOPRESSOR) 12.5 mg, [...] 10 mg (ROXICODONE) Given 04/18/2018 5:17 PM SUCTION DRUM DRIER OPERATOR 10 mg 10 mg, oral, Every 4 [...] Recently Administered Medications Times are shown in SUCTION DRUM DRIER OPERATOR. Scheduled Medication Order 04/16/2018 04/17/2018 04/18/2018 acetaminophen tablet 1,000 mg (TYLENOL) 1718 (Not Given - Provider: Niya Levy R.N. - Reason: Patient/family refused) 1,000 mg, oral, 4 times daily, First dose on Tue04/18/18 at 1700 ceFAZolin injection 2,000 mg (ANCEF) (COMPLETED) 1150 (Given - Provider: Lawrence Sanford APRN, KATI)1158 (Given - Provider: Lawrence Sanford APRN, KATI - Comment: first 2 gm infiltrated ) [...] (Continued from OR - Provider: Nilda Monzon R.N.)1626 (Stopped - Provider: Niya Levy R.N. - [...] solution (COMPLETE D) 1425 (Given - Provider: Suzie BanksB.B.S.) miscellaneous, Once in surgery, OR use o nly, Starting on Tue04/18/18 at 0939, For 1 dose, Intra-Op, *Flush/Irrigation use only* insulin aspart U-100 injection 0-8 Units (NovoLOG FlexPen) 0929 (Given - Provider: Siria Miller R.N.) 0-8 Units, subcutaneous, Every 2 hour IN N, high blood sugar, Nurse to determine [...] injection (COMPLE GERALD) 1425 (Given - Provider: Suzie BanksB.B.S.) 300 mL, injection, Once in surgery, OR u se only, Starting on Tue04/18/18 at 0939, For 1 dose, Intra-Op lidocaine-bupivacaine 1%-0.25% infiltration injection 30 mL (COM PLETED) 1159 (Given - Provider: Shonda BanksSFei) 30 mL, infiltration, Once in surgery, OR [...]
--- OUTSIDE RECORDS SUMMARY | 2022-03-16 12:26 | XMS_ITS | Encounter Summary ---
:1950 Author Organization [facility] Address [address] [place] [address] Care Team Providers Name Role Phone Unavailable Primary Care Provider Unavailable Reason for Visit Reason Comments Med Refill Encounter Details Date Type Department Care Team Description 03/28/2018 Refill Department of Family Medicine, Bambi Adler Med Refill [facility], in Renee Phillips M.D. [place] [address] [place] [address] [place] [address] [phone] Social History Tobacco Use Types Packs/Day Years [...] How often do you attend faith or shinto services? Never 03/25/2021 Do you belong to [...] place to sleep or slept in a long-term (including now)? 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
--- OUTSIDE RECORDS SUMMARY | 2022-03-16 12:26 | XMS_ITS | Encounter Summary ---
:[address] [facility] Address [address] [place] [address] Care Team Providers Name Role Phone Unavailable Primary Care Provider Unavailable Encounter Details Date Type Department Care Team Description 03/24/2018 Episode Changes Department of Family January Britt, Medicine, [facility], in [address] [facility] [address] Social History Tobacco Use Types [...] week 03/25/2021 How often do you attend jain or quaker services? 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
--- OUTSIDE RECORDS SUMMARY | 2022-03-16 12:26 | XMS_ITS | Encounter Summary ---
:1950 Author Organization [facility] Address [address] [place] [id number] Care Team Providers Name Role Phone Unavailable Primary Care Provider Unavailable Reason for Visit Outpatient (Routine) - Closed Specialty Diagnoses / Procedures Referred By Contact Refer red To Contact Radiology Diagnoses Peripheral Arterial Disease (HCC) 5d-78 kg/bay R/RN natanael 32240/will flag ok Kemar Velásquez M.BFeiB.S. Rst [facility] [place] Procedures CT ABDOMEN PELVIS ANGIOGRAM WITH IV CONTRAST RAD CT ABDOMEN PELVIS ANGIO [address] [facility] [address] [place] [phone] [place] [address] Fax: Referral ID Status Reason Start Date Expiration Date Visits Requ ested Visits Authorized [id number] Closed 03/15/2018 03/15/2019 1 1 Encounter Details Date Type Department Care Team Description 03/15/2018 Hospital Encounter Department of Kemar Velásquez Periphe ral Arterial Radiology, [place] M.B.B.S. Disease (HCC) Building, in [address] [place] [address] [place] [phone] [place], [place] [phone] (Work) [phone] Social History Tobacco Use Types Packs/Day Years [...] How often do you attend rastafarian or holiness services? 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 lancets [facility] Dispense item 0 08/23/2014 9 covered by pt ins. 250.02 IDDM type II Tests 4 times/day. Reason: High A1c. History labile sugars, hypertension, poor control LANTUS SOLOSTAR U-100 Inject 0.3 mL (30 15 pen 3 018 03/20/2018 INSULIN 100 unit/mL (3 Units total) under mL) injection the skin at bedtime. lisinopril-hydroCHLOROthi Take 1 tablet by 0 07/201505/08/2020 [...] Procedure Name Priority Date/Time Associated Comments Diagnosis CT ABDOMEN PELVIS RAD - Routine 03/15/2018 8:48 Peripheral Result s for this ANGIOGRAM WITH IV (most inpatients AM CDT Arterial Disease pr ocedure are in CONTRAST and all (HCC) the results outpatients) section. CREATININE, POCT, Routine 03/15/2018 8:08 Results for this B AM CDT procedure are i n the results section. CREATININE, POCT, Routine 03/15/2018 8:08 Results for this B AM CDT procedure are i n the results section. documented in this encounter Results CT Abdomen Pelvis Angiogram with IV Contrast (03/15/2018 8:48 AM CDT) Anatomical Region Laterality Modality Abdomen, Pelvis, Cardiovascular RST LOS, Abdominal ARZ N/A Computed Tomography LOS, Vascular Interventional ARZ LOS, Vascular Interventional FLA LOS, Abdominal FLA LOS Specimen (Source) Anatomical Collection Method Collection Time Re ceived Time Location / / Volume Laterality 03/15/2018 10:49 AM CDT Impressions 03/15/2018 12:31 PM CDT IMPRESSION: 1. ??High-grade stenosis distal to the l eft external iliac artery stent. 2. ??Stents themselves are widely patent (left common iliac, left external iliac, distal right superficial femoral, distal left superficial femoral). 3. ??Right external iliac moderate steno sis. 4. ??Left common femoral artery moderate stenosis. Narrative 03/15/2018 12:31 PM CDT EXAM: ??CT ABDOMEN PELVIS ANGIOGRAM WITH IV CONTRAST COMPARISON: ??Ultrasound 02/08/2018. CTA abdomen and pelvis with 02/18/2017. IR angiogram 08/31/2017. ? FINDINGS: ? VASCULAR FINDINGS: ABDOMINAL AORTA: Nonaneurysmal abdominal aorta with calci fied and noncalcified plaque most prominent distally. RENAL ARTERIES: Right renal arteries: ??Single right carolin al artery. Widely patent. Left renal arteries: ??Single left renal artery. Widely patent with calcified plaque at the origin. VISCERAL ARTERIES: Celiac artery: ??Widely patent. Superior mesenteric artery: ??Moderate s tenosis proximal superior mesenteric artery, best seen on image 5, image 62 a nd series 6, image 91. Inferior mesenteric artery: ??Atheroscle rotic plaque at the origin of the inferior mesenteric artery appears to ca use moderate stenosis.. ILIAC ARTERIES: Right common iliac artery: ??Calcified p laque with mild stenosis Right internal iliac artery: ??Calcified plaque at the origin with moderate stenosis. Right external iliac artery: ??Scattered atheromatous plaque with moderate stenosis distally. Left common iliac artery: ??Stent is wid ashish patent. Left internal iliac artery: ??Widely pat ent. Left external iliac artery: ??Stent is w idely patent. High-grade stenosis just distal to the stent is new since 017 and likely increased from 08/31/2017. RIGHT LEG (to distal thigh): Right common femoral artery: ??Atheroscl erotic plaque causes mild stenosis. Right deep femoral artery: ??Widely camara nt. Right superficial femoral artery: ??Wide ly patent with patent stent distally. ?? LEFT LEG (to distal thigh): Left common femoral artery: ??Atheroscle rotic plaque causes moderate stenosis. Left deep femoral artery: ??Patent witho ut significant stenosis. Left superficial femoral artery: ??Moder ate stenosis proximally. ??Patent distal superficial femoral artery stent. ADDITIONAL FINDINGS: Pancreatic atrophy. Procedure Note Bob Liu M.D. - 03/15/2018Format ting of this note might be different from the original. EXAM: CT ABDOMEN PELVIS ANGIOGRAM WITH I V CONTRAST COMPARISON: Ultrasound 02/08/2018. CTA ab domen and pelvis with 02/18/2017. IR angiogram 08/31/2017. FINDINGS: VASCULAR FINDINGS: ABDOMINAL AORTA: Nonaneurysmal abdominal aorta with calci fied and noncalcified plaque most prominent distally. RENAL ARTERIES: Right renal arteries: Single right renal artery. Widely patent. Left renal arteries: Single left renal a rtery. Widely patent with calcified plaque at the origin. VISCERAL ARTERIES: Celiac artery: Widely patent. Superior mesenteric artery: Moderate jose nosis proximal superior mesenteric artery, best seen on image 5, image 62 a nd series 6, image 91. Inferior mesenteric artery: Atherosclero tic plaque at the origin of the inferior mesenteric artery appears to ca use moderate stenosis.. ILIAC ARTERIES: Right common iliac artery: Calcified tylor que with mild stenosis Right internal iliac artery: Calcified p laque at the origin with moderate stenosis. Right external iliac artery: Scattered a theromatous plaque with moderate stenosis distally. Left common iliac artery: Stent is widel y patent. Left internal iliac artery: Widely paten t. Left external iliac artery: Stent is wid ashish patent. High-grade stenosis just distal to the stent is new since 017 and likely increased from 08/31/2017. RIGHT LEG (to distal thigh): Right common femoral artery: Atheroscler otic plaque causes mild stenosis. Right deep femoral artery: Widely patent . Right superficial femoral artery: Widely patent with patent stent distally. LEFT LEG (to distal thigh): Left common femoral artery: Atherosclero tic plaque causes moderate stenosis. Left deep femoral artery: Patent without significant stenosis. Left superficial femoral artery: Moderat e stenosis proximally. Patent distal superficial femoral artery stent. ADDITIONAL FINDINGS: Pancreatic atrophy. IMPRESSION: 1. High-grade stenosis distal to the lef t external iliac artery stent. 2. Stents themselves are widely patent ( left common iliac, left external iliac, distal right superficial femoral, distal left superficial femoral). 3. Right external iliac moderate stenosi s. 4. Left common femoral artery moderate s tenosis. Kemar Reyes IMG CT PROCEDURES (ABNORMAL) Creatinine, POCT (03/15/2018 8:08 AM CDT) athologist Signature Creatinine, 1.5 (H) 0.7 - 1.4 03/15/2018 POC RST POCT, B mg/dL 8:11 AM CDT [facility] Comment: ----ADDITIONAL INFORMATION---- Performed at the Point of Care Specimen Anatomical Collection Method Collection Time Receive d Time (Source) Location / / Volume Laterality Blood 03/15/2018 8:08 AM 8 8:11 CDT AM CDT Unknown Provider LAB POCT ORDERABLES - DEVICE Performing Organization Address [facility] Phon e Number POC RST [facility] [address] [place], [place] [address] LABS (ABNORMAL) Creatinine, POCT (03/15/2018 8:08 AM CDT) P athologist Signature eGFR-Black/Afr 55 (L) >=60 03/15/2018 POC RST ican Tristanian, mL/min/BSA 8:11 AM CDT [facility] Comment: ----ADDITIONAL INFORMATION---- Estimated GFR calculated using the 2009 CKD_EPI creatinine equation. eGFR Non-Black/ 48 (L) >=60 mL/min/BSA 03/15/20 18 8:11 POC RST [facility] Tristanian, POCT AM CDT OUTPATIENT [facility]S Comment: ----ADDITIONAL INFORMATION---- Estimated GFR calculated using the 2009 CKD_EPI creatinine equation. Specimen Anatomical Collection Method Collection Time Receive d Time (Source) Location / / Volume Laterality Blood 03/15/2018 8:08 AM 8 8:11 CDT AM CDT Unknown Provider LAB POCT ORDERABLES - DEVICE Performing Organization Address [facility] Phon e Number POC RST [facility] [address] [place], [place] [address] LABS documented in this encounter Visit Diagnoses Diagnosis Peripheral Arterial Disease (HCC) documented in this encounter Administered Medications Inactive Administered Medications - up to 3 most recent administrations Medication Order MAR Action Action Date Dose Rate Site iohexol 350 mg iodine/mL solution Given 03/15/2018 8:38 AM CDT 1 40 mL 1-200 mL (OMNIPAQUE) 1-200 mL, intravenous, Once in imaging, contrast, Starting on Tue03/15/18 at 0758, For 1 dose, Imaging Protocol Orders, Dose per Radiant Medication Guidelines sodium chloride (PF) 0.9 % injection 50 mL Given 03/15/2018 8:39 AM CDT 30 mL 50 mL, intravenous, Once, On Tue03/15/18 at 0800, For 1 dose sodium chloride injection 2.5 mL Given 03/15/2018 8:39 AM CDT 2.5 mL 2.5 mL, intravenous, As needed, line care, Starting on Tue03/15/18 at 0758 documented in this encounter Additional Health Concerns Assessment Noted Time PHQ-9 Depression Total Score: 3 01/03/2018 10:38 AM CD T documented as of this encounter
--- OUTSIDE RECORDS SUMMARY | 2022-03-16 12:26 | XMS_ITS | Encounter Summary ---
:1950 Author Organization [facility] Address [address] [place] [address] Care Team Providers Name Role Phone Unavailable Primary Care Provider Unavailable Encounter Details Date Type Department Care Team Description 03/20/2018 Clinical Communication Department of [facility] [place] [facility] [place] [address] [facility] [place] [phone] Social History Tobacco Use Types Packs/Day Years [...] How often do you attend anabaptist or shinto services? Never 03/25/2021 Do you [...] or slept in a usp (including now)? 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
--- OUTSIDE RECORDS SUMMARY | 2022-03-16 12:26 | XMS_ITS | Encounter Summary ---
:1950 Author Organization [facility] Address [address] [place] [address] Care Team Providers Name Role Phone Unavailable Primary Care Provider Unavailable Reason for Visit Reason Onset Date Comments Medication Question 02/16/2018 Encounter Details Date Type Department Care Team Description 02/16/2018 Clinical Communication Department of [facility] Question Family Medicine, [facility], nita Duran M.D. [place], [place] [address] [place] [phone] Social History Tobacco Use Types Packs/Day [...] How often do you attend yarsani or church services? 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 - 02/16/2018 2:18 PM CDT Contacted Ottoniel at [facility] pharmacy.Correct script for Gabapentin is 300 mg 2 times a day. Telephone Encounter - Maxi Strong - 02/16/2018 1:40 PM CDT 2 RX for gabapentin for various quantities and had different directions as well. Please call to confirm which RX to fill. [phone] documented in this encounter Plan of Treatment Not on filedocumented as of this encounter Visit Diagnoses Not on filedocumented in this encounter Additional Health Concerns Assessment Noted Time PHQ-9 Depression Total Score: 3 01/03/2018 10:38 AM CD T documented as of this encounter
--- OUTSIDE RECORDS SUMMARY | 2022-03-16 12:26 | XMS_ITS | Encounter Summary ---
:1950 Author Organization [facility] Address [address] [place] [address] Care Team Providers Name Role Phone Unavailable Primary Care Provider Unavailable Encounter Details Date Type Department Care Team Description 03/22/2018 Clinical Communication Division of Vascular Eic[place]off, and Endovascular Stacy Mcgee M.S., Surgery in [facility] [address] [place] [phone] Social History Tobacco Use Types Packs/Day Years [...] How often do you attend alevism or jainism services? 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 - 03/22/2018 9:44 AM WORKPLACE TRAINER AND ASSESSOR PLAN The following information was provided: I called Mr. Walton this morning to let him know that Dr. Velásquez reviewed his CTA from last week. Hewould like to do a left iliac angioplasty of the iliac stent that is in place. We decided we would schedule him for April 18. 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 We also discussed that we will still intend for him to dismiss to home that evening, but if his 6 hours of flat time gets too long, then we may need to keep him overnight. He was agreeable. I will send him a packet of information in the mail this week. He knows he can call with any questions he may have. Education: patient/caller able to teach back The following references were used: nursing clinical judgement PLACE TRAINER AND ASSESSOR documented in this encounter Plan of Treatment Not on filedocumented as of this encounter Visit Diagnoses Diagnosis Peripheral Arterial Disease (HCC) - Prim dat documented in this encounter Additional Health Concerns Assessment Noted Time PHQ-9 Depression Total Score: 3 01/03/2018 10:38 AM CD T documented as of this encounter
--- OUTSIDE RECORDS SUMMARY | 2022-03-16 12:26 | XMS_ITS | Encounter Summary ---
:1950 Author Organization [facility] Address [address] [place] [address] Care Team Providers Name Role Phone Unavailable Primary Care Provider Unavailable Reason for Visit Reason Comments Med Refill Encounter Details Date Type Department Care Team Description 04/20/2018 Refill Department of Family Medicine, Bambi Adler Med Refill [facility], in Renee Phillips M.D. [place] [address] [place] [address] [place] [address] [phone] Social History Tobacco Use Types Packs/Day Years [...] How often do you attend rastafarian or nondenominational services? 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
--- OUTSIDE RECORDS SUMMARY | 2022-03-16 12:26 | XMS_ITS | Encounter Summary ---
:1950 Author Organization [facility] Address [address] [place] [address] Care Team Providers Name Role Phone Unavailable Primary Care Provider Unavailable Reason for Visit Reason Comments Consult Ref. - restless legs Appointment Request (Routine) - Closed Specialty Diagnoses / Procedures Referred By Contact Refer red To Contact Neurology Referral ID Status Reason Start Date Expiration Date Visits Requ ested Visits Authorized [id number] Closed 12/30/2017 12/30/2018 1 1 Encounter Details Date Type Department Care Team Description 02/16/2018 Comprehensive Visit Department of Yessy Cohen s Leg Neurology in Delmy Gomes, Syndrome [place], [place] M.P.H. [address] [address] [place], [place] [phone] [address] Social History Tobacco Use Types Packs/Day [...] How often do you attend hinduism or orthodox services? 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 - 02/16/2018 12:30 PM CDT SUBJECTIVE CHIEF COMPLAINT / REASON FOR VISIT Onesimo Walton is a 68 y.o. male who presents for evaluation of Consult (Ref. - restless legs). HISTORY OF PRESENT ILLNESS the i have attempted multiple times to dictate this well the cap lock so unfortunately cap blocks will be the rest way through the dictation. this is a 67-year-old gentleman with refractory restless leg syndrome. he has been on ropinirole andthe dose has been doubled without improvement in symptoms. he recommends that he has had restless legs for 10 years and it has been really bad for 3 or 4 years. i looked through the history and he has been on lyrica but he says he has a true allergy that his rash and swelling up. he said that was helpful. he also to gabapentin without allergic reaction but he said that made him dizzy. PATIENT HAS BEEN ON TIZANIDINE AND OPIOIDS. HE SAYS HE SEES A PAIN DOCTOR AN [facility]. HE HAS CHRONIC PAIN DUE TO NEUROPATHY AND BACK ISSUES. HE HAS BEEN DISABLED FOR MANY YEARS. I DO NOTFIND A SERUM FERRITIN CONCENTRATION. HE HAS DIABETIC NEUROPATHY AND HAS FOR MANY YEARS HE TAKES OXYCONTIN FOR THAT BUT HE SAID IT HAS BEEN GRADUALLY DECREASED. I AM MOVING DIFFICULTY WITH THE TRANSCRIBED IN SOFTWARE AND SO MUCH OF THIS IS CAPITAL SOME OF IT ISN'T. Hemoglobin A1c, B4.2 - 5.6 % 7.8 PATIENT HAS SLEEP ONSET INSOMNIA AND HAS HAD FOR MANY YEARS. HE WOULD PREFER TO GO TO BED AT 2:00 A.M. AND GET UP LATER. HE HAS A IN-LAB POLYSOMNOGRAM FROM 12/24/2011 WHICH SHOWED NO PLMS ALTHOUGH THE PATIENT REPORTS THAT HE RESTLESS LEGS IN THE EVENING WHEN HE GETS IN BED. HE DOES NOT TAKE ANYTHING TO HELP INITIATE SLEEP. EPWORTH SLEEPINESS SCORE TODAY IS 14. Past Medical History: Diagnosis Date ??? Bruit Carotid Artery bilateral without evidence of stenosis ??? Cataract ??? Dependence Nicotine ??? Depressive Disorder ??? Diabetes Mellitus Type 2 Peripheral Neuropathy (HCC) requiring insuling ??? Dysfunction Erectile ??? Gastroesophageal Reflux Disease ??? Gout ??? Hyperlipidemia ??? Hypertension Essential Primary ??? Insufficiency Renal ??? Other Specified Health Status ??? Pain Low Back Chronic ??? Peripheral Arterial Disease (HCC) ??? Restless Leg Syndrome ??? Stenosis Spinal lumbar spine ??? Transient Ischemic Attack 2009 without residua Past Surgical History: Procedure Laterality Date ??? ANGIOPLASTY/STENT ENDOVASCULAR FEMORAL AND/OR POPLITEAL ARTERY Left 04/04/2017 Left endovascular superficial femoral artery stent x 2. ??? ARTHROSCOPIC REPAIR OF ROTATOR CUFF Right 2004 ??? CATARACT EXTRACTION AND INSERTION OF INTRAOCULAR LENS N/A 10/29/2007 Cataract extraction and insertion of intraocular lens ??? DECOMPRESSION OF MEDIAN NERVE N/A 01/30/2002 [...] popliteal and /or tibial artery angioplasty/stent Notes: [id number] ??? ENDOVASCULAR ILIAC AND/OR FEMORAL AND/OR POPLITEAL AND /OR TIBIAL ARTERY ANGIOPLASTY/STENT Right08/31/2017 Endovascular iliac and/or femoral and/or popliteal and /or tibial artery angioplasty/stent Notes: [id number] ??? FEMORAL ARTERY STENT Right 08/31/2017 ??? FEMORAL ENDARTERECTOMY, PATCH ANGIOPLASTY/INTERPOSITION GRAFT WITH/WITHOUT PROFUNDOPLASTY Left 04/04/2017 Femoral endarterectomy, patch angioplasty/interposition graft with/without profundoplasty Notes: [id number] ??? NM SESTAMIBI W/DOBUTAMINE 1 DA postive for myocardial ischemia with normal LVEF ??? OTHER SURGICAL HISTORY ??? TOE AMPUTATION Left 05/31/2017 Toe amputation Notes: Left hallux ??? TONSILLECTOMY as a child MEDICATIONS: Current Outpatient Prescriptions: ??? ACCU-CHEK XIAO PLUS TEST STRP strips, for testing blood sugars 6 times daily, Disp: 200 strip, Rfl: 11 ??? acetaminophen (for_TYLENOL) 500 mg tablet, Take 500-1,000 mg by mouth every 6 (six) hours as needed for pain., Disp: , Rfl: ??? amLODIPine (NORVASC) 10 mg tablet, Take 1 tablet (10 mg total) by mouth daily., Disp: 90 tablet,Rfl: 3 ??? aspirin [address] tablet, Take 325 mg by mouth daily. Take in evening, Disp: , Rfl: ??? atorvastatin (for_LIPITOR) 20 mg tablet, Take 1 tablet (20 mg total) by mouth at bedtime., Disp:90 tablet, Rfl: 3 ??? clopidogrel (for_PLAVIX) 75 mg tablet, Take 75 mg by mouth daily., Disp: , Rfl: ??? colchicine (COLCRYS) 0.6 mg tablet, Take 1 tablet (0.6 mg total) by mouth daily., Disp: 30 tablet, Rfl: 11 ??? DULoxetine (for_CYMBALTA) [address] capsule, Take 3 capsules by mouth daily. , Disp: , Rfl: ??? insulin lispro (HumaLOG KwikPen) 100 unit/mL injection, Inject 0.1 mL (10 Units total) under theskin 3 (three) times a day with meals., Disp: 15 mL, Rfl: 3 ??? lancets misc, Dispense item covered by pt ins. 250.02 IDDM type II Tests 4 times/day. Reason: High A1c. History labile sugars, hypertension, poor control, Disp: , Rfl: ??? LANTUS SOLOSTAR U-100 INSULIN 100 unit/mL (3 mL) injection, Inject 0.3 mL (30 Units total) underthe skin at bedtime., Disp: 15 pen, Rfl: 3 ??? metoprolol succinate (for_TOPROL-XL) 200 mg 24 hr tablet, Take 1 tablet (200 mg total) by mouth daily. Do not crush or chew., Disp: 90 tablet, Rfl: 3 ??? nortriptyline (PAMELOR) 50 mg capsule, Take 50 mg by mouth at bedtime., Disp: , Rfl: 5 ??? oxyCODONE (OxyCONTIN) 20 mg 12 hr tablet, Take 20 mg by mouth 2 (two) times a day., Disp: , Rfl:0 ??? oxyCODONE-acetaminophen (PERCOCET) 5-325 mg per tablet, TAKE ONE TABLET BY MOUTH TWICE A DAY NEEDED FOR MODERATE TO SEVERE PAIN, Disp: , Rfl: 0 ??? pantoprazole (for_PROTONIX) 40 mg EC tablet, Take 40 mg by mouth once daily., Disp: , Rfl: ??? pen needle, diabetic 31 gauge x 5/16 needle, Inject 1 each under the skin 4 (four) times a day., Disp: 150 each, Rfl: 3 ??? tiZANidine (ZANAFLEX) 4 mg tablet, TAKE ONE-HALF TO ONE TABLET BY MOUTH THREE TIMES A DAY NEEDED, Disp: , Rfl: 0 ??? gabapentin (NEURONTIN) 300 mg capsule, Take 1 capsule (300 mg total) by mouth 2 (two) times a day., Disp: 60 capsule, Rfl: 5 ??? predniSONE (DELTASONE) 10 mg tablet, , Disp: , Rfl: ??? rOPINIRole (REQUIP) 2 mg tablet, Take 1 tablet (2 mg total) by mouth 3 (three) times a day., Disp: 90 tablet, Rfl: 11 ALLERGY: Allergies Allergen Reactions ??? Morphine Itching and Rash itchy ??? Pregabalin Anaphylaxis swell ??? Qcxpftj-Qgn-Itm Reductase Inhibitors Myalgia Family History Problem Relation [...] Social History Main Topics ??? Smoking status: Current Every Day Smoker Packs/day: 0.50 Types: Cigarettes ??? Smokeless tobacco: Never Used ??? Alcohol use No ??? Drug use: No ??? Sexual activity: Not Currently Partners: Female Other Topics Concern ??? Not on file Social History Narrative He is . He is retired. 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 OBJECTIVE Vitals: 02/16/18 1220 BP: 118/75 Pulse: 72 PHYSICAL EXAM COGNITION: Alert and oriented x 4. CRANIAL NERVES: medical record librarian II-XII intact and symmetric. MOTOR: Full strength throughout the upper and lower extremities bilaterally both proximally and distally. Normal tone. No pronator drift. No tremor. REFLEXES: REFLEXES ARE 0 ACCEPT THE ANKLES THERE ABSENT. SENSORY: HE HAS A STOCKING DISTRIBUTION SENSORY NON OP A 30. CEREBELLAR: ARMs-normal GAIT: Normal IMPRESSION: Encounter Diagnoses Name Primary? Restless Leg Syndrome PATIENT HAS RESTLESS LEG SYNDROME WITH AUGMENTATION HE IS ALLERGIC TO LYRICA SO WE CAN'T USE THAT. HE HAS TAKING GABAPENTIN WITH SOME SUCCESS ALTHOUGH IT MADE HIM SLEEPY SO WILL START WITH A LOW DOSE 300 MG P.O. B.I.D. I INSTRUCTED HIM TO CALL ME IF HE HAD A RASH AND TO STOP IT IMMEDIATELY THERE IS CERTAINLY THE RISK OF COST HER CROSS-REACTIVITY BETWEEN THESE 2 MEDICINES. I AM GOING TO CUT HIS ROPINIROLE IN HALF AND WE WILL GRADUALLY DECREASE THAT. TOTAL TIME WITH PATIENT WAS IN OUR 40 MIN IN COUNSELING AND RECORD REVIEW. Yessy Cohen M.D., M.P.H. Answers for HPI/ROS submitted by [...] Yes Difficulty urinating: Yes Erectile dysfunction: Yes documented in this encounter Plan of Treatment Not on filedocumented as of this encounter Visit Diagnoses Diagnosis Restless Leg Syndrome documented in this encounter Additional Health Concerns Assessment Noted Time PHQ-9 Depression Total Score: 3 01/03/2018 10:38 AM CD T documented as of this encounter
--- OUTSIDE RECORDS SUMMARY | 2022-03-16 12:26 | XMS_ITS | Encounter Summary ---
:1950 Author Organization [facility] Address [address] [place] [address] Care Team Providers Name Role Phone Unavailable Primary Care Provider Unavailable Encounter Details Date Type Department Care Team Description 03/09/2018 Orders Only Division of Vascular Stacy Correiaipheral Arterial and Endovascular S, M.S., R.N. Disease (HCC) Surgery in [address] (Primary Dx) [place], [place] [address] [facility] [address] [place], [place] [phone] [address] (Work) [phone] Social History Tobacco Use Types Packs/Day Years [...] How often do you attend druze or moravian services? 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 Kemar MerchantSFei IMG CT PROCEDURES (ABNORMAL) Creatinine with Estimated GFR (03/15/2018 7:42 AM CDT) [facility] gist Method Time Signature Creatinine 1.54 (H) 0.74 - 03/15/2018 [facility] 1.35 9:28 AM CDT LABORATORIES - mg/dL [facility] eGFR-Non 46 (L) >=60 03/15/2018 [facility] Black/ mL/min/BS 9:28 AM CDT LABORATORIES - Fijian A [facility] Comment: ----ADDITIONAL INFORMATION---- Estimated GFR calculated using the 2009 CKD_EPI creatinine equation. eGFR-Black/ 54 (L) >=60 mL/min/BSA 03/15/2018 9:28 [facility] Fijian AM CDT LABORATORIES - [facility] Comment: ----ADDITIONAL INFORMATION---- Estimated GFR calculated using the 2009 CKD_EPI creatinine equation. Specimen Anatomical Collection Method Collection Time Receive d Time (Source) Location / / Volume Laterality Blood (Blood, 03/15/2018 7:42 AM 03/15/20 18 8:04 Venous) CDT AM CDT Kemar MerchantS. LAB BLOOD ADD-ON Performing Organization Address City/State/ZIP Code Phon e Number [facility] LABORATORIES - [address] [place] [id number] [facility] documented in this encounter Visit Diagnoses Diagnosis Peripheral Arterial Disease (HCC) - Prim dat Peripheral Arterial Disease (HCC) documented in this encounter Additional Health Concerns Assessment Noted Time PHQ-9 Depression Total Score: 3 01/03/2018 10:38 AM CD T documented as of this encounter
--- OUTSIDE RECORDS SUMMARY | 2022-03-16 12:26 | XMS_ITS | Encounter Summary ---
:1950 Author Organization [facility] Address [address] [place] [address] Care Team Providers Name Role Phone Unavailable Primary Care Provider Unavailable Encounter Details Date Type Department Care Team Description 02/17/2018 Orders Only Department of Neurology in Yessy Cohen M.D., [place], [place] M.P.H[facility] [address] [place] [address] [place], [place] [phone] [address] (Wo rk) Social History Tobacco Use Types [...] How often do you attend adventism or buddhism services? 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
--- OUTSIDE RECORDS SUMMARY | 2022-03-16 12:27 | XMS_ITS | Encounter Summary ---
:1950 Author Organization [facility] Address [address] [place] [address] Care Team Providers Name Role Phone Unavailable Primary Care Provider Unavailable Encounter Details Date Type Department Care Team Description 09/07/2017 Orders Only Department of [facility] Radha velasquez, [facility] [address] [place] [address] [place] [address] [phone] (Wo rk) Social History Tobacco Use Types Packs/Day Years Used Date Smoking Tobacco: Former Smokeless Tobacco: Never Alcohol Use Standard Drinks/Week [...] How often do you attend mu-ism or catholic services? 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
--- OUTSIDE RECORDS SUMMARY | 2022-03-16 12:27 | XMS_ITS | Encounter Summary ---
:1950 Author Organization [facility] Address [address] [place] [address] Care Team Providers Name Role Phone Unavailable Primary Care Provider Unavailable Encounter Details Date Type Department Care Team Description 01/13/2018 Ancillary Procedure Department of Vascular Social History Tobacco Use Types Packs/Day Years Used Date Smoking Tobacco: Former Cigarettes 0.5 Quit : 05/08/2017 Smokeless Tobacco: Never Alcohol Use Standard Drinks/Week [...] How often do you attend yazdanism or orthodoxy services? 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 documented in this encounter Results VASCULAR IMAGE EXAM (01/13/2018 8:20 AM CDT) Specimen (Source) Anatomical Collection Method Collection Time Re ceived Time Location / / Volume Laterality 01/13/2018 8:19 AM CDT Narrative [facility] - 01/13/2018 8:48 AM CDT This order has been created and auto-finalized to support the import of images acquired without order. The clini ammy documentation to support these images can be found on the encounter dioni t produced images. Provider Not In System IMG NON RAD IMAGING PROCEDUR ES Performing Organization Address City/State/ZIP Code Phon e Number [id number] IIWI NA documented in this encounter Visit Diagnoses Not on filedocumented in this encounter Additional Health Concerns Assessment Noted Time PHQ-9 Depression Total Score: 3 01/03/2018 10:38 AM CD T documented as of this encounter
--- OUTSIDE RECORDS SUMMARY | 2022-03-16 12:27 | XMS_ITS | Encounter Summary ---
:1950 Author Organization [facility] Address [address] [place] [address] Care Team Providers Name Role Phone Unavailable Primary Care Provider Unavailable Reason for Visit Reason Comments Med Refill Encounter Details Date Type Department Care Team Description 02/03/2018 Refill Department of Family Medicine, Bambi Adler Med Refill [facility], in Renee Phillips M.D. [place] [address] [place] [address] [place] [address] [phone] Social History Tobacco Use Types Packs/Day Years [...] How often do you attend worship or faith services? Never 03/25/2021 Do you [...] or slept in a penitentiary (including now)? 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 - 02/03/2018 4:19 PM CDT Refill request submitted to dr corral for review Telephone Encounter - Chloe Mejía - 02/03/2018 10:09 AM CDT Nurse review: Unable to pend medication; Epic states the patient is taking differently (8-12 units SQ four times daily) Primary Provider: Renee Catalan M.D. Name of medication: Humalog Kwikpen Strength: 100 unit/ml sopn Frequency: Inject 10 units under the skin 3 times a day with meals. Quantity: 15 Refills: Last Refill: 12/05/17 Pharmacy: [facility] Please Include the ICD 10 documented in this encounter Plan of Treatment Not on filedocumented as of this encounter Visit Diagnoses Not on filedocumented in this encounter Additional Health Concerns Assessment Noted Time PHQ-9 Depression Total Score: 3 01/03/2018 10:38 AM CD T documented as of this encounter
--- OUTSIDE RECORDS SUMMARY | 2022-03-16 12:27 | XMS_ITS | Encounter Summary ---
:1950 Author Organization [facility] Address [address] [place] [address] Care Team Providers Name Role Phone Unavailable Primary Care Provider Unavailable Reason for Visit Reason Comments Med Refill Encounter Details Date Type Department Care Team Description 12/26/2017 Refill Department of Family Medicine, Bambi Adler Med Refill [facility] [place] [facility], in Renee Phillips M.D. [place] [address] [place] [address] [place] [address] [phone] Social History Tobacco Use Types Packs/Day Years [...] How often do you attend faith or hoahaoism services? Never 03/25/2021 Do you [...] slept in a long term (including now)? 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
--- OUTSIDE RECORDS SUMMARY | 2022-03-16 12:27 | XMS_ITS | Encounter Summary ---
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 [address] Procedures LOWER EXTREMITY ARTERIAL (MIMI) - TCPO2 (WOUND) CVD TEST LOWER ART TCP02 [address] [place] [id number] Referral ID Status Reason Start Date Expiration Date Visits Requ ested Visits Authorized [id number] Closed 01/13/2018 01/13/2019 1 1 Encounter Details Date Type Department Care Team Description 01/13/2018 Hospital Encounter Department of Kemar Velásquez Periphe ral Arterial Disease (HCC); Vascular Medicine M.B.B.S[facility] Atherosclerosis Of Rincon Arteries Of Ex tremities With Intermittent Claudication Right Leg (HCC); in [place] [address] [address] [facility] Atherosclerosis Of Rincon Arteries Of Le ft Leg With Ulceration Of Unspecified Site (HCC) [place], [place] [address] [facility] [address] [place], [place] [phone] (Work) [phone] Social History Tobacco Use Types Packs/Day Years [...] How often do you attend holiness or advent services? Never 03/25/2021 Do you belong to [...] or slept in a prison (including now)? 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 amLODIPine (NORVASC) 10 Take 1 tablet (10 mg 90 tablet 3 12/25/2018 mg tablet total) by mouth daily. atorvastatin Take 1 tablet (20 mg 90 tablet 3 08/02/2017 (for_LIPITOR) 20 mg total) by mouth at tablet bedtime. clopidogrel (for_PLAVIX) Take 75 mg by mouth 0 04/04/2018 75 mg tablet daily. colchicine (COLCRYS) 0.6 Take 1 tablet (0.6 30 tablet 11 11/20/2018 mg tablet mg total) by mouth daily. insulin lispro Inject 0.1 mL (10 15 mL 3 07/30/2017 (for_HumaLOG KwikPen) 100 Units total) under unit/mL injection the skin 3 (three) times a day with meals. lancets [facility] [place] item 0 08/23/2014 9 covered by pt ins. 250.02 IDDM type II Tests 4 times/day. Reason: High A1c. History labile sugars, hypertension, poor control LANTUS SOLOSTAR U-100 Inject 0.3 mL (30 15 pen 3 018 03/20/2018 INSULIN 100 unit/mL (3 Units total) under mL) injection the skin at bedtime. lisinopril-hydroCHLOROthi Take 1 tablet by 0 10/0 07/201505/08/2020 azide mouth daily. (PRINZIDE,ZESTORETIC) 20-12.5 mg [...] 10 0 10/27/2017 04/17/2018 mg tablet rOPINIRole XL (REQUIP XL) Take 1 tablet (4 mg 60 tablet 1 0 01/03/2018 02/16/2018 4 mg 24 hr tablet total) by mouth 2 (two) times a day. documented as of this encounter Plan of Treatment Not on filedocumented as of this encounter Procedures Procedure Name Priority Date/Time Associated Diagnosis Comme nts LOWER EXTREMITY Routine 01/13/2018 9:23 AM Peripheral Arterial Results for this ARTERIAL (MIMI) - CDT Disease (HCC) procedure are in TCPO2 (WOUND) Atherosclerosis Of the resu lts Rincon Arteries Of section. Extremities With Intermittent Claudication Right Leg (HCC) Atherosclerosis Of Rincon Arteries Of Left Leg With Ulceration Of Unspecified Site (HCC) documented in this encounter Results Lower Extremity Arterial (MIMI) - TCPO2 (Wound) (01/13/2018 9:23 AM CDT) Anatomical Region Laterality Modality Other Specimen (Source) Anatomical Collection Method Collection Time Re ceived Time Location / / Volume Laterality 01/13/2018 8:19 AM CDT Narrative 01/13/2018 8:19 AM CDT Right: Doppler Waveforms: ? Abnormal signals starting at or above the common femoral level. ?? Re sting Index: ? MIMI (PT)- ??0.78 ?MIMI (DP)- ??0.80 ?TBI- ??0.42 ?? TcPO2: ? Values as noted. Left: Doppler Waveforms: ? Abnormal signals starting at or above the common femoral level. ?? Resting Index: ? MIMI (PT)- ??0.61 ?MIMI (DP)- ??0.57 ?TBI- ??0.21 ?? TcPO2: ? Values as noted. Conclusions: Right- mild arterial occlus radha disease located at the aortoiliac segment. ??TcPO2s are moderately reduced at the below knee and foot sites. ?? Left- moderate arterial occlusive disease loca jennifer at and distal to the aortoiliac segm ent. ??TcPO2s are moderately reduced at the below knee and foot sites. Right-sided ABIs and TcPO2s have improved slightly from the study of 08/08/2017. ??In the interval left sided TcPO2s have decreased slightly. Duplex -- Patent SFA stents with no stent stenosis. Procedure Note Edgar Yarbrough M.D. - 01/13/2018Formatti ng of this note might be different from the original. Right: Doppler Waveforms: Abnormal signa ls starting at or above the common femoral level. Resting Index: MIMI (PT)- 0.78 MIMI (DP)- 0.80 TBI- 0.42 TcPO2: Values as noted. Left: Doppler Waveforms: Abnormal signal s starting at or above the common femoral level. Resting Index: MIMI (PT)- 0.61 MIMI (DP)- 0.57 TBI- 0.21 TcPO2: Values as noted. Conclusions: Right- mild arterial occlus radha disease located at the aortoiliac segment. TcPO2s are moderately reduced at the below knee and foot sites. Left- moderate arterial occlusive disease located at and distal to the aortoiliac segment. TcPO2s are moderately reduced at the below knee and foot sites. Right-sided ABIs and TcPO2s have improved slightly from the study of 08/08/2017. In the interval left sided TcPO2s have decreased slightly. Duplex -- Patent SFA stents with no stent stenosis. Kemar Reyes CV VASCULAR PROCEDURES documented in this encounter Visit Diagnoses Diagnosis Peripheral Arterial Disease (HCC) Atherosclerosis Of Rincon Arteries Of Ex tremities With Intermittent Claudication Right Leg (HCC) Atherosclerosis Of Rincon Arteries Of Le ft Leg With Ulceration Of Unspecified Site (HCC) documented in this encounter Additional Health Concerns Assessment Noted Time PHQ-9 Depression Total Score: 3 01/03/2018 10:38 AM CD T documented as of this encounter
--- OUTSIDE RECORDS SUMMARY | 2022-03-16 12:27 | XMS_ITS | Encounter Summary ---
:1950 Author Organization [facility] Address [address] [place] [address] Care Team Providers Name Role Phone Unavailable Primary Care Provider Unavailable Reason for Referral Outpatient (Routine) - Closed Specialty Diagnoses / Procedures Referred By Contact Refer red To Contact Neurology Diagnoses Restless Leg Syndrome SHIVA Catalan [facility] Demetri Duran M.D. [address] [place] [address] Referral ID Status Reason Start Date Expiration Date Visits V isits Requested Authorized [id number] Closed Specialty 10/31/2017 10/31/2018 1 1 Services Required Reason for Visit Reason Comments Other consult recommended by pain clinic for RLS Encounter Details Date Type Department Care Team Description 10/31/2017 Office Visit Department of [facility] Ruthie Res tless Leg Syndrome Medicine, Renee Antonio, (Primary Dx) Clinic, in [place] [address] [place] [address] [phone] Social History Tobacco Use Types Packs/Day Years [...] How often do you attend islam or scientologist services? 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 - 10/31/2017 8:15 AM CDT CHIEF COMPLAINT/ REASON FOR VISIT Restless leg HISTORY OF PRESENT ILLNESS Onesimo Walton is a 67 y.o. male who presents to the clinic today for for evaluation of restless legs. He has had restless leg syndrome with severe symptoms for the past several years. He is currently on the max dose ropinirole all that is recommended for restless leg syndrome, 4 mg daily. He has been on gabapentin and Lyrica for chronic pain syndrome and was unable to tolerate these. States that about 3 o'clock in the afternoon when he sits down he develops jumpiness of his legs. Hemoves his legs around almost uncontrollably. This interferes with his ability to sit still and relaxand later on interferes with his ability to fall asleep. After time of his legs moving they start tohurt. He develops of burning and stinging with shooting pains. The only time he is comfortable is when he standing. He ends up falling asleep sitting up in his recliner. He is on opioids for chronic pain syndrome and this is managed through a pain management program in [place]. He did notice that when he took and extra oxycodone at bedtime he slept much better. Everett has severe peripheral vascular disease which has been treated by revascularization. The patient denies any additional questions or concerns at this time. SYSTEMS REVIEW Please see HPI for pertinent positives, otherwise rest of ROS negative. MEDICATIONS Current Outpatient Prescriptions Medication Sig Dispense Refill ??? ACCU-CHEK XIAO PLUS TEST STRP strips 6 (six) times a day. for testing 5 ??? acetaminophen (for_TYLENOL) 500 mg tablet Take 500-1,000 mg by mouth every 6 (six) hours as needed for pain. ??? amLODIPine (for_NORVASC) 10 mg tablet Take 1 tablet by mouth daily. ??? aspirin [address] tablet Take 325 mg by mouth daily. Take in evening ??? atorvastatin (for_LIPITOR) 20 mg tablet Take 1 tablet (20 mg total) by mouth at bedtime. 90 tablet 3 ??? clopidogrel (for_PLAVIX) 75 mg tablet Take 75 mg by mouth daily. ??? colchicine (COLCRYS) 0.6 mg tablet Take 1 tablet (0.6 mg total) by mouth daily. 30 tablet 11 ??? DULoxetine (for_CYMBALTA) [address] capsule Take 3 capsules by mouth daily. ??? insulin lispro (for_HumaLOG KwikPen) 100 unit/mL injection Inject 0.1 mL (10 Units total) under the skin 3 (three) times a day with meals. (Patient taking differently: Inject 8-12 Units under the skin 4 (four) times a day. ) 15 mL 3 ??? lancets misc Dispense item covered by pt ins. 250.02 IDDM type II Tests 4 times/day. Reason: High A1c. History labile sugars, hypertension, poor control ??? LANTUS SOLOSTAR U-100 INSULIN 100 unit/mL (3 mL) injection Inject 0.3 mL (30 Units total) under the skin at bedtime. 15 pen 3 ??? metoprolol succinate (for_TOPROL-XL) 200 mg 24 hr tablet Take 1 tablet (200 mg total) by mouth daily. Do not crush or chew. 90 tablet 3 ??? nicotine (NICOTROL) 10 mg inhaler Inhale as directed. ??? nortriptyline (for_PAMELOR) 25 mg capsule Take 1 capsule by mouth daily. ??? oxyCODONE (OxyCONTIN) 20 mg 12 hr tablet Take 20 mg by mouth 2 (two) times a day. 0 ??? OXYCODONE HCL (OXYCODONE ORAL) Take 10 mg by mouth every 4 (four) hours as needed (pain). Taper off over the next few days. ??? oxyCODONE-acetaminophen (PERCOCET) 5-325 mg per tablet TAKE ONE TABLET BY MOUTH TWICE A DAY NEEDED FOR MODERATE TO SEVERE PAIN 0 ??? pantoprazole (for_PROTONIX) 40 mg EC tablet Take 40 mg by mouth once daily. ??? pen needle, diabetic 31 gauge x 5/16 needle Inject 1 each under the skin 4 (four) times a day. 150 each 3 ??? rOPINIRole XL (for_REQUIP XL) 2 mg 24 hr tablet Take 1 tablet (2 mg total) by mouth 2 (two) times a day. 180 tablet 3 ??? varenicline (CHANTIX) 0.5 mg tablet Take 1 tablet by mouth 2 (two) times a day. ??? diazePAM (VALIUM) 5 mg tablet Take 1 tablet (5 mg total) by mouth at bedtime as needed for anxiety or muscle spasms. 30 tablet 0 ??? oxyCODONE (OxyCONTIN) 30 mg 12 hr tablet Take 20 mg by mouth every 12 (twelve) hours. 30 mg every am and 20 mg every evening with evening meal ??? predniSONE (DELTASONE) 10 mg tablet No current facility-administered medications for this visit. ALLERGIES Allergies Allergen Reactions ??? Morphine Itching and Rash itchy ??? Pregabalin Anaphylaxis swell ??? Jhmwtrx-Jwh-Wlw Reductase Inhibitors Myalgia PAST MEDICAL / SURGICAL HISTORY Past Medical History: Diagnosis Date ??? Bruit Carotid Artery bilateral without evidence of stenosis ??? Dependence Nicotine ??? Depressive Disorder ??? Diabetes Mellitus Type 2 Peripheral Neuropathy (HCC) requiring insuling ??? Dysfunction Erectile ??? Gastroesophageal Reflux Disease ??? Gout ??? Hyperlipidemia ??? Hypertension Essential Primary ??? Insufficiency Renal ??? Pain Low Back Chronic ??? Peripheral [...] popliteal and /or tibial artery angioplasty/stent Notes: [id number] ??? ENDOVASCULAR ILIAC AND/OR FEMORAL AND/OR POPLITEAL AND /OR TIBIAL ARTERY ANGIOPLASTY/STENT Right08/31/2017 Endovascular iliac and/or femoral and/or popliteal and /or tibial artery angioplasty/stent Notes: [id number] ??? FEMORAL ARTERY STENT Right 08/31/2017 ??? FEMORAL ENDARTERECTOMY, PATCH ANGIOPLASTY/INTERPOSITION GRAFT WITH/WITHOUT PROFUNDOPLASTY Left 04/04/2017 Femoral endarterectomy, patch angioplasty/interposition graft with/without profundoplasty Notes: [id number] ??? NM SESTAMIBI W/DOBUTAMINE 1 DA postive for myocardial ischemia with normal LVEF ??? TOE AMPUTATION Left 05/31/2017 Toe amputation Notes: Left hallux ??? TONSILLECTOMY as a child PREVENTIVE SERVICES Social History Substance Use Topics ??? Smoking status: Former Smoker ??? Smokeless tobacco: Never Used ??? Alcohol use No VITAL SIGNS Vitals: 10/31/17 0816 BP: 130/64 Pulse: 68 Temp: 36.4 ??C Resp: 20 Height: 173 cm Weight: 79.2 kg TempSrc: Temporal Body mass index is 26.46 kg/m??. PHYSICAL EXAMINATION General: Patient is alert and oriented times three, in no acute distress, good hygiene and is dressed appropriately. DIAGNOSTICS CBC and ferritin are pending ASSESSMENT / PLAN #1 Restless Leg Syndrome It sounds like he has significantly severe symptoms. Will add add Valium 5 mg at bedtime. I was alsolike him to be seen by Neurology for their evaluation and recommendations for management. CBC and ferritin will also be drawn to rule out iron deficiency as a cause. Follow up The patient will contact the clinic with any new or worsening symptoms. documented in this encounter Plan of Treatment Scheduled Referrals Name Type Priority Associated Diagnoses Order S [facility] Neurology - General Outpatient Referral Routine Restless Leg O rdered: consult (clinic) Syndrome 10/31/2017 documented as of this encounter Visit Diagnoses Diagnosis Restless Leg Syndrome - Primary documented in this encounter Additional Health Concerns Assessment Noted Time PHQ-9 Depression Total Score: 7 07/22/2017 11:14 AM CS T documented as of this encounter
--- OUTSIDE RECORDS SUMMARY | 2022-03-16 12:27 | XMS_ITS | Encounter Summary ---
:1950 Author Organization [facility] Address [address] [place] [address] Care Team Providers Name Role Phone Elsewhere, Pcp Primary Care Provider Unavailable Encounter Details Date Type Department Care Team Description 12/19/2017 Orders Only [facility] betelizabeth Mellitus Type Medicine, VanceRenee rodriguez, 2 (HCC) (Primary Dx) Clinic, in [place] [address] [place] [id number] Social History Tobacco Use Types Packs/Day Years [...] week 03/25/2021 How often do you attend catholic or gnosticism services? 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 ?? Diagnosis should be confirmed by repeat testing. ??In diabet ic patients, HbA1c goals should be discussed with healthcar e provider. Specimen Anatomical Collection Method Collection Time Receive d Time (Source) Location / / Volume Laterality Blood (Blood, 04/21/2018 1:54 PM 04/21/20 18 3:34 Venous) WAREDRESSER PM WAREDRESSER Renee Catalan M.D. LAB BLOOD ADD-ON Performing Organization Address City/State/ZIP Code Phon e Number [facility] [address] [place] [address] LAB documented in this encounter Visit Diagnoses Diagnosis Diabetes Mellitus Type 2 (HCC) - Primary documented in this encounter Additional Health Concerns Infection Onset Date Last Indicated Resolved Time COVID19 Pending 05/08/2020 05/08/2020 05/08/2020 2:44 PM WAREDRESSER Assessment Noted Time PHQ-9 Depression Total Score: 7 07/22/2017 11:14 AM CS T documented as of this encounter Care Teams Mix House Tender Relationship Specialty Start Date End Date Elsewhere, Pcp PCP - General Family Medicine 01/29/20 documented as of this encounter
--- OUTSIDE RECORDS SUMMARY | 2022-03-16 12:27 | XMS_ITS | Encounter Summary ---
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
--- OUTSIDE RECORDS SUMMARY | 2022-03-16 12:27 | XMS_ITS | Encounter Summary ---
:1950 Author Organization [facility] Address [address] [place] [address] Care Team Providers Name Role Phone Unavailable Primary Care Provider Unavailable Reason for Visit Reason Comments Med Refill Encounter Details Date Type Department Care Team Description 09/07/2017 Refill Department of Family Medicine, Bambi Adler Med Refill [facility], in [place] M.D. [place] [address] [place] [address] [place] [address] [phone] Social History Tobacco Use Types Packs/Day Years [...] How often do you attend gnosticist or mu-ism services? 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
--- OUTSIDE RECORDS SUMMARY | 2022-03-16 12:27 | XMS_ITS | Encounter Summary ---
:1950 Author Organization [facility] Address [address] [place] [address] Care Team Providers Name Role Phone Unavailable Primary Care Provider Unavailable Reason for Visit Reason Comments Follow-up 04/30/17 Dr. Dino ashley Outpatient (Routine) - Closed Specialty Diagnoses / Referred By Contact Referred To Contact Procedures Cardiovascular Diseases / Diagnoses [facility] Cardiovascular Disease Renee escobedo M.D. [address] [place] [address] Referral ID Status Reason Start Date Expiration Date Visits Requ ested Visits Authorized [id number] Closed 10/27/2017 10/27/2018 1 1 Encounter Details Date Type Department Care Team Description 11/09/2017 Comprehensive Visit Department of Yessy Dumont Stress Test (Primary Dx); Cardiovascular Delmy Blake Syncope And Near Syncope; Diseases in [facility] [address] Pain Chest Atypical; [facility] Diabetes Mellitus Type 2 With Other Circ ulatory Complication Hyperglycemic (HCC); [address] [facility], Peripheral Arterial Disease (HCC) [facility] [phone] Social History Tobacco Use Types Packs/Day Years [...] How often do you attend hinduism or evangelical services? 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 - 11/09/2017 11:15 AM CDT SUBJECTIVE Referring Provider: Renee Catalan M.D. HISTORY OF PRESENT ILLNESS Mr. Onesimo Walton is a 67 y.o. male who is referred to [facility] Cardiovascular Medicine for further cardiovascular evaluation. I reviewed to the recent clinical encounter notes from October 2017 as well as the prior Vascular Medicine consultation and pre anesthetic evaluation in 2017 from [facility]. Patient previously noted orthostatic lightheadedness as well as lightheadedness with certain position changes and was found to have a low normal blood pressure and evidence for an orthostatic drop (SBP 114 mmHg sitting to 92 mmHg standing). The lisinopril/hydrochlorothiazide was discontinued with resolutionof his symptoms. No significant lightheadedness now, presyncope or syncope. Home blood pressure has been within acceptable limits (SBP less than 130 mmHg). He notes an occasional right-sided chest pain characterizes a sharp sensation which can last secondsin duration but on occasion has lasted longer. He denies any triggers or reproducibility with palpation nor pleuritic features. The symptoms have been present for the past year and have not changed in frequency, intensity nor duration. These symptoms have not been associated with exertion. He denies any new exertional dyspnea or other exertional chest symptomatology to suggest angina pectoris. His bilateral lower extremity claudication symptoms have improved following the revascularization procedures. Unfortunately, he resumed tobacco use approximately 1 month ago and is currently smoking 1/2 pack per day. REVIEW OF SYSTEMS REVIEW OF SYSTEMS The following portions of the patient's history were reviewed as appropriate: allergies, current medications, family history, medical history, social history, surgical history and problem list. OBJECTIVE BP 130/75 (BP Location: Left arm, Patient Position: Sitting, Cuff Size: Regular) Pulse 75 Ht 173cm Wt 79.8 kg SpO2 100% BMI 26.66 kg/m?? PHYSICAL EXAMINATION General: Normal body habitus. Well groomed. No distress. Psychiatric: Normal mood and affect. Alert and oriented. Head: Normocephalic, atraumatic. Eyes: No xanthelasma or conjunctivitis. ENT: No oral mucosal pallor or cyanosis. Neck: Normal jugular venous pressure. Carotid upstroke is preserved. Soft, bilateral carotid bruit. Left subclavian bruit with radiation to the upper left chest. Heart: Apical impulse is not displaced nor sustained. No ventricular lift. Normal first and second heart sound. No S3 or S4. Rhythm is regular. Grade 1 systolic murmur at the upper sternal border. No diastolic murmur. No systolic click. No pericardial rub. Lungs: Normal respiratory effort and air movement. Clear to auscultation bilaterally. No crackles, rhonchi, or wheezing. Abdomen: Positive bowel sounds. Soft and nontender. No rebound or guarding. Normal sized liver and spleen. No masses identified. No ascites detected. Enlargement of the abdominal aorta not detected by palpation. No abdominal bruits. Extremities: No clubbing or cyanosis. Trace to 1+ pedal edema. Appearance consistent with known peripheral arterial occlusive disease. Absent dorsalis pedis and posterior tibialis pulses. No, nonhealing ulcers visualized. Systolic blood pressure approximately 10 mm per Hg lower in the left upper extremity compared to the right upper extremity. Neurologic: No focal deficits appreciated on limited examination. Gait: No significant gait instability observed. Skin: No stasis dermatitis or ulceration identified in the visualized areas. DIAGNOSTICS I have reviewed the patient's current laboratory, imaging, and other diagnostic studies. Laboratory work August 2017 with normocytic anemia and a normal platelet count. Chemistry panel notable for creatinine 1.5 mg/dL. High sensitivity cardiac troponin T 15 ng/L. Hemoglobin A1c 9.1% in July 2017. Total cholesterol 148, LDL 58, HDL 40 and triglycerides 249 mg/dL. Electrocardiogram August 2017 with sinus rhythm and right bundle branch block. Dobutamine stress echocardiogram March 2017 with apical ischemia and a heart rate of 109 beats per minute appropriate left ventricular end systolic volume and left ventricular ejection fraction response to stress. Left ventricular intracavitary, dobutamine-precipitated gradient within JULIAN 100 mm Hg which could reduce the specificity of the apical stress findings. ASSESSMENT / PLAN #1 Postural lightheadedness (resolved) #2 Atypical chest pain #3 Suspected obstructive coronary artery disease with abnormal dobutamine stress echocardiogram (March 2017) #4 Peripheral arterial occlusive disease with bilateral lower extremity claudication and history of nonhealing ulcer #5 Status post bilateral lower extremity revascularization procedures (2016; 2017) #6 Bilateral carotid artery bruits with suspected left subclavian artery stenosis #7 Hypertension, dyslipidemia, and insulin-requiring diabetes mellitus #8 Chronic kidney disease #9 Nicotine dependence with ongoing tobacco use We discussed his recent postural lightheadedness and findings of a drop in blood pressure when transitioning from a seated to standing position followed by resolution of the symptoms with discontinuation of the lisinopril/hydrochlorothiazide. He is right-sided chest discomfort is atypical for angina pectoris and has not changed for approximately 12 months; although I do suspect he has obstructive coronary artery disease given his cardiovascular risk factors, peripheral arterial occlusive disease, and the abnormal dobutamine stress echocardiogram in March 2017. We discussed the possibility of pursuing additional coronary artery disease-directed studies with a focus on a functional stress imagingtest and at the end of our conversation he has opted to take a more conservative course with medicalmanagement only. He will notify us if he has any new cardiopulmonary symptoms or should he develop any exertional symptoms of concern. We discussed the importance of optimizing his cardiovascular risk factors and he has been attempting to improve his dietary habits and glycemic control given the past elevated hemoglobin A1c. Unfortunately, he has resumed tobacco use and will again attempt to discontinue although finds this very challenging as his continues to smoke. He will remain on dual anti-platelet therapy with aspirin and clopidogrel as well as continue the anti ischemic agents including metoprolol succinate and amlodipine. The lipid panel can be updated in the future and atorvastatin modified based on the results. He will be following with Vascular at [facility] later this year; I did not arrange for any noninvasive vascular studies including an ultrasound of the carotids or left subclavian artery (possibility of significant left subclavian artery stenosis should be remembered in case he ultimately is a candidate for coronary artery bypass grafting prior to utilization of the left internalmammary artery as a graft). A follow-up was not arranged at this time. Patient Education: Ready to learn, no apparent learning barriers were identified; learning preferences include listening. Explained diagnosis and treatment plan; patient expressed understanding of the content. I believe all questions were answered. documented in this encounter Plan of Treatment Not on filedocumented as of this encounter Visit Diagnoses Diagnosis Abnormal Stress Test - Primary Syncope And Near Syncope Pain Chest Atypical Diabetes Mellitus Type 2 With Other Circ ulatory Complication Hyperglycemic (HCC) Peripheral Arterial Disease (HCC) documented in this encounter Additional Health Concerns Assessment Noted Time PHQ-9 Depression Total Score: 7 07/22/2017 11:14 AM CS T documented as of this encounter
--- OUTSIDE RECORDS SUMMARY | 2022-03-16 12:27 | XMS_ITS | Encounter Summary ---
:1950 Author Organization [facility] Address [address] [place] [address] Care Team Providers Name Role Phone Unavailable Primary Care Provider Unavailable Reason for Visit Reason Comments Other review medications Appointment Request (Routine) - Closed Specialty Diagnoses / Procedures Referred By Contact Refer red To Contact Family Medicine Referral ID Status Reason Start Date Expiration Date Visits Requ ested Visits Authorized [id number] Closed 12/23/2017 12/23/2018 1 Encounter Details Date Type Department Care Team Description 01/03/2018 Office Visit [facility], Renee Antonio, (Primary Dx) Clinic, in [place] [address] [place] [phone] Social History Tobacco Use Types Packs/Day Years [...] How often do you attend zoroastrian or sikh services? 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 - 01/03/2018 10:45 AM CDT CHIEF COMPLAINT/ REASON FOR VISIT Chief Complaint Patient presents with ??? Other review medications HISTORY OF PRESENT ILLNESS Onesimo Walton is a 67 y.o. male who presents to the clinic today for review of restless legs syndrome. Onesimo is regularly seen at the [facility] in [place] where they manage his chronic narcotic medications. They asked that we revisit his medication for restless legs syndrome. At his last visit we reviewed that he is taking Requip 2 mg b.i.d., at supper and bedtime. He has been using this dose for 10+ years. He has noticed that over the past couple of years it seems to have lost its effectiveness. He struggles with staying awake because of the restless legs. At his last visit we started Valium 5 mg b.i.d. at bedtime. He claims that this has been very helpful for his sleep but is contraindicated with narcotic pain medications. He is correct. The patient denies any additional questions or concerns at this time. SYSTEMS REVIEW Please see HPI for pertinent positives, otherwise rest of ROS negative. MEDICATIONS Current Outpatient Prescriptions Medication Sig Dispense Refill ??? ACCU-CHEK XIAO PLUS TEST STRP strips for testing blood sugars 6 times daily 200 strip 11 ??? acetaminophen (for_TYLENOL) 500 mg tablet Take 500-1,000 mg by mouth every 6 (six) hours as needed for pain. ??? amLODIPine (NORVASC) 10 mg tablet Take [...] day. ) 15 mL 3 ??? lancets [facility] Dispense item covered by pt ins. 250.02 [...] crush or chew. 90 tablet 3 ??? nortriptyline (PAMELOR) 50 mg capsule Take 50 mg by mouth at bedtime. 5 ??? oxyCODONE (OxyCONTIN) 20 mg 12 hr tablet Take 20 mg by mouth 2 (two) times a day. 0 ??? oxyCODONE-acetaminophen (PERCOCET) 5-325 mg per tablet TAKE ONE TABLET BY MOUTH TWICE A DAY NEEDED FOR MODERATE TO SEVERE PAIN 0 ??? pantoprazole (for_PROTONIX) 40 mg EC tablet Take 40 mg by mouth once daily. ??? pen needle, diabetic 31 gauge x 5/16 needle Inject 1 each under the skin 4 (four) times a day. 150 each 3 ??? predniSONE (DELTASONE) 10 mg tablet ??? rOPINIRole XL (REQUIP XL) 4 mg 24 hr tablet Take 1 tablet (4 mg total) by mouth 2 (two) times a day. 60 tablet 1 No current facility-administered medications for this visit. ALLERGIES Allergies Allergen Reactions ??? Morphine Itching and Rash itchy ??? Pregabalin Anaphylaxis swell ??? Qxlaupn-Cne-Rmj Reductase Inhibitors Myalgia PAST MEDICAL / SURGICAL [...] popliteal and /or tibial artery angioplasty/stent Notes: [id number] ??? ENDOVASCULAR ILIAC AND/OR FEMORAL AND/OR POPLITEAL AND /OR TIBIAL ARTERY ANGIOPLASTY/STENT Right08/31/2017 Endovascular iliac and/or femoral and/or popliteal and /or tibial artery angioplasty/stent Notes: [id number] ??? FEMORAL ARTERY STENT Right 08/31/2017 ??? FEMORAL ENDARTERECTOMY, PATCH ANGIOPLASTY/INTERPOSITION GRAFT WITH/WITHOUT PROFUNDOPLASTY Left 04/04/2017 Femoral endarterectomy, patch angioplasty/interposition graft with/without profundoplasty Notes: [id number] ??? NM SESTAMIBI W/DOBUTAMINE 1 DA postive for myocardial ischemia with normal LVEF ??? TOE AMPUTATION Left 05/31/2017 Toe amputation Notes: Left hallux ??? TONSILLECTOMY as a child PREVENTIVE SERVICES Social History Substance Use Topics ??? Smoking status: Current Every Day Smoker Packs/day: 0.50 Types: Cigarettes ??? Smokeless tobacco: Never Used ??? Alcohol use No VITAL SIGNS Vitals: 01/03/18 1033 BP: 128/82 Pulse: 64 Temp: 36.5 ??C Resp: 20 Height: 173 cm Weight: 79.7 kg TempSrc: Temporal Body mass index is 26.63 kg/m??. PHYSICAL EXAMINATION General: Patient is alert and oriented times three, in no acute distress, good hygiene and is dressed appropriately. Skin: No rashes or suspicious lesions noted on exposed skin. ASSESSMENT / PLAN #1 Restless Leg Syndrome in the setting of peripheral vascular disease. We will discontinue the diazepam. He may increase the Requip to 4 mg b.i.d. at supper and at bedtime. He will update me in a couple of weeks and continue to follow with the Pain Management facility in [place] Follow up The patient will contact the [...]
--- OUTSIDE RECORDS SUMMARY | 2022-03-16 12:27 | XMS_ITS | Encounter Summary ---
:1950 Author Organization [facility] Address [address] [place] [address] Care Team Providers Name Role Phone Unavailable Primary Care Provider Unavailable Reason for Referral Outpatient (Routine) - Closed Specialty Diagnoses / Referred By Contact Referred To Contact Procedures Cardiovascular Diseases / Diagnoses Syncope And Near Syncope [facility] Cardiovascular Disease Renee escobedo M.D. [address], [place] [address] Referral ID Status Reason Start Date Expiration Date Visits Requ ested Visits Authorized [id number] Closed 10/27/2017 10/27/2018 1 1 Encounter Details Date Type Department Care Team Description 10/27/2017 Orders Only Department of [facility] Ruthie [facility] cope And Near Medicine, Renee Antonio, Syncope (Primary Dx) Clinic, in [place] [address] [facility] [place] [phone] Social History Tobacco Use Types Packs/Day Years [...] How often do you attend worship or presybeterian services? 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
--- OUTSIDE RECORDS SUMMARY | 2022-03-16 12:27 | XMS_ITS | Encounter Summary ---
:1950 Author Organization [facility] Address [address] [place] [address] Care Team Providers Name Role Phone Unavailable Primary Care Provider Unavailable Encounter Details Date Type Department Care Team Description 09/30/2017 Clinical Communication Division of Vascular and Kemar Velásquez, Endovascular Surgery in [place], [place] [address] [facility] [address] [place] [phone] Social History Tobacco Use Types Packs/Day Years [...] week 03/25/2021 How often do you attend bahai or amish services? 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 - 09/30/2017 2:42 PM CDT Patient is requesting the following information: Mr. Walton called to ask if he could stop his Plavix for a back injection. I spoke with Dr. Velásquez who indicated the guidelines for the type of stent that he had placed recommend 2 full months of uninterrupted Plavix therapy. I explained this to Mr. Walton. He indicated he would wait until late October to schedule his procedure. He had no other questions at this time. Education: patient/caller able to teach back The following references were used: provider Dr. Velásquez Telephone Encounter - Mallory Pratt - 09/30/2017 10:21 AM CDT Destiny, Mr. Uriarte called and would like to know if it would be okay for him to be off of his Plavix for 5 days prior to his spine injection on October 13. Please return his call with your recommendations. Mallory Pedroza documented in this encounter Plan of Treatment Not on filedocumented as of this encounter Visit Diagnoses Not on filedocumented in this encounter Additional Health Concerns Assessment Noted Time PHQ-9 Depression Total Score: 7 07/22/2017 11:14 AM CS T documented as of this encounter
--- OUTSIDE RECORDS SUMMARY | 2022-03-16 12:27 | XMS_ITS | Encounter Summary ---
:1950 Author Organization [facility] Address [address] [place] [address] Care Team Providers Name Role Phone Unavailable Primary Care Provider Unavailable Encounter Details Date Type Department Care Team Description 01/25/2018 Orders Only Department of [facility] tatiannaCheryl velasquez, [facility] ariel [address] [place], [place] [facility] [place] [phone] (Wo rk) Social History Tobacco Use Types [...] How often do you attend catholic or episcopal services? 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
--- OUTSIDE RECORDS SUMMARY | 2022-03-16 12:27 | XMS_ITS | Encounter Summary ---
:1950 Author Organization [facility] Address [address] [place] [address] Care Team Providers Name Role Phone Unavailable Primary Care Provider Unavailable Encounter Details Date Type Department Care Team Description 11/11/2017 Abstract [facility] ANGIE Pinon ea Provider, Historical [address] [place] [address] Social History Tobacco Use [...] How often do you attend advent or scientologist services? 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
--- OUTSIDE RECORDS SUMMARY | 2022-03-16 12:27 | XMS_ITS | Encounter Summary ---
:1950 [facility] Address [address] [place] [address] Care Team Providers Name Role Phone Unavailable Primary Care Provider Unavailable Encounter Details Date Type Department Care Team Description 12/06/2017 Hospital Encounter Department of [facility] Renee beth, Type 2 (HCC) in [place] [address] [phone] Social History Tobacco Use Types Packs/Day Years [...] How often do you attend adventism or restoration services? 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 amLODIPine (for_NORVASC) Take 1 tablet by 0 12/2812/26/2017 10 mg tablet mouth daily. atorvastatin Take 1 tablet (20 90 tablet 3 08/02/201707/25 (for_LIPITOR) 20 mg mg total) by mouth tablet at bedtime. clopidogrel (for_PLAVIX) Take 75 mg by mouth 0 04/04/2018 75 mg tablet daily. colchicine (COLCRYS) 0.6 Take 1 tablet (0.6 30 tablet 11 11/20/2018 mg tablet mg total) by mouth daily. diazePAM (VALIUM) 5 mg Take 1 tablet (5 mg 30 tablet 0 11/1312/14/2017 tabletIndications: total) by mouth at Restless Leg Syndrome bedtime as needed for anxiety or muscle spasms. insulin lispro Inject 0.1 mL (10 15 mL 3 07/30/2017 (for_HumaLOG KwikPen) 100 Units total) under unit/mL injection the skin 3 (three) times a day with meals. lancets [facility] Dispense item 0 08/23/2014 9 [...] tablet daily. Do not crush or chew. nicotine (NICOTROL) 10 mg Inhale as directed. 0 1 06/20/2016 01/03/2018 inhaler nortriptyline Take 1 capsule by 0 12/22/201612/15 (for_PAMELOR) 25 mg mouth daily. capsule oxyCODONE (OxyCONTIN) 20 Take 15 mg by mouth 0 05/11/2019 mg 12 hr tablet every 12 (twelve) hours. oxyCODONE (OxyCONTIN) 30 Take 20 mg by mouth 0 01/03/2018 mg 12 hr tablet every 12 (twelve) hours. 30 mg every am and 20 mg every evening with evening meal OXYCODONE HCL (OXYCODONE Take 10 mg by mouth 0 01/03/2018 ORAL) every 4 (four) hours as needed (pain). Taper off over the next few days. oxyCODONE-acetaminophen TAKE ONE TABLET BY 0 09/1405/08/2020 [...] 0 10/27/2017 04/17/2018 mg tablet rOPINIRole XL (for_REQUIP Take 1 tablet (2 mg 180 tablet 3 0 08/04/2017 01/03/2018 XL) 2 mg 24 hr tablet total) by mouth 2 (two) times a day. varenicline (CHANTIX) 0.5 Take 1 tablet by 0 09/201601/03/2018 mg tablet mouth 2 (two) times a day. documented as of this encounter Plan of Treatment Not on filedocumented as of this encounter Procedures Procedure Name Priority Date/Time Associated Diagnosis Comme nts HEMOGLOBIN A1C, B Routine 12/06/2017 7:39 AM Diabetes Mellitus Results for this CDT Type 2 (HCC) procedure are i n the results section. documented in this encounter Results (ABNORMAL) Hemoglobin A1c (12/06/2017 7:39 AM CDT) P athologist Signature Hemoglobin A1c, 7.8 (H) 4.2 - 5.6 12/06/2017 [facility] B % 12:10 PM CDT [facility] Comment: Hemoglobin A1c values greater than or eq ual to 6.5 percent are diagnostic for diabetes mellitus. ?? Diagnosis should be confirmed by repeat testing. ??In diabet ic patients, HbA1c goals should be discussed with healthcar e provider. Specimen Anatomical Collection Method Collection Time Receive d Time (Source) Location / / Volume Laterality Blood (Blood, 12/06/2017 7:39 AM 12/07/19 18 Venous) CDT 11:00 AM CDT Renee Catalan M.D. LAB BLOOD ADD-ON Performing Organization Address City/State/ZIP Code Phon e Number [facility] [address] [place] [address] LAB documented in this encounter Visit Diagnoses Diagnosis Diabetes Mellitus Type 2 (HCC) documented in this encounter Additional Health Concerns Assessment Noted Time PHQ-9 Depression Total Score: 7 07/22/2017 11:14 AM CS T documented as of this encounter
--- OUTSIDE RECORDS SUMMARY | 2022-03-16 12:27 | XMS_ITS | Encounter Summary ---
:1950 Author Organization [facility] Address [address] [place] [address] Care Team Providers Name Role Phone Unavailable Primary Care Provider Unavailable Reason for Visit Reason Comments Hypotension gets dizzy and black outs Encounter Details Date Type Department Care Team Description 10/21/2017 Office Visit Department of [facility] tatiannaJanett Per dominikhersurinder Arterial Medicine, Renee Antonio, Disease (HCC) (Primary Clinic, in [place]) [place] [address] [place], [place] [phone] Social History Tobacco Use Types Packs/Day [...] How often do you attend samaritan or mandaen services? Never 03/25/2021 Do you belong to [...] or slept in a halfway (including now)? 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 - 10/21/2017 9:00 AM CDT CHIEF COMPLAINT/ REASON FOR VISIT Dizzy spells. HISTORY OF PRESENT ILLNESS Onesimo Walton is a 67 y.o. male who presents to the clinic today for dizzy spells. He has been having trouble with dizzy spells to the point where it feels that he may pass out. The dizzy spellscome on with positional changes; he becomes dizzy when he stands up from the couch and starts walking to another room or when he stands up from being bent over. He has been having these spells for a while but they have been getting worse with several episodes every day. Onesimo has noticed that his blood pressure seems to be low. He has not noticed his pulse going low. He had a dobutamine stress echo on 04/01/2017 which was positive for apical ischemia. Ischemia developed at a heart rate of 109 BPM. His EF increased from 66% to 70% at peak stress. Once in a while he will get a pain in the right side of his chest with no particular trigger. The patient denies any additional questions or [...] day. ) 15 mL 3 ??? lancets [facility] Dispense item covered by pt ins. 250.02 IDDM type II Tests 4 times/day. Reason: High A1c. History labile sugars, hypertension, poor control ??? LANTUS SOLOSTAR U-100 INSULIN 100 unit/mL (3 mL) injection Inject 0.3 mL (30 Units total) under the skin at bedtime. 15 pen 3 ??? lisinopril-hydroCHLOROthiazide (for_PRINZIDE,ZESTORETIC) 20-12.5 mg per tablet Take 1 tablet by mouth daily. ??? metoprolol succinate (for_TOPROL-XL) 200 mg 24 hr tablet Take 1 tablet (200 mg total) by mouth daily. Do not crush or chew. 90 tablet 3 ??? nortriptyline (for_PAMELOR) 25 mg capsule Take [...] times a day. 180 tablet 3 ??? nicotine (NICOTROL) 10 mg inhaler Inhale as directed. ??? oxyCODONE (OxyCONTIN) 30 mg 12 hr tablet Take 20 mg by mouth every 12 (twelve) hours. 30 mg every am and 20 mg every evening with evening meal ??? OXYCODONE HCL (OXYCODONE ORAL) Take 10 mg by mouth every 4 (four) hours as needed (pain). Taper off over the next few days. ??? varenicline (CHANTIX) 0.5 mg tablet Take 1 tablet by mouth 2 (two) times a day. No current facility-administered medications for this visit. ALLERGIES Allergies Allergen Reactions ??? Morphine Itching and Rash itchy ??? Pregabalin Anaphylaxis swell ??? Qmkjtrg-Cyj-Lkd Reductase Inhibitors Myalgia PAST MEDICAL / SURGICAL [...] popliteal and /or tibial artery angioplasty/stent Notes: [id number] ??? ENDOVASCULAR ILIAC AND/OR FEMORAL AND/OR POPLITEAL AND /OR TIBIAL ARTERY ANGIOPLASTY/STENT Right08/31/2017 Endovascular iliac and/or femoral and/or popliteal and /or tibial artery angioplasty/stent Notes: [id number] ??? FEMORAL ARTERY STENT Right 08/31/2017 ??? FEMORAL ENDARTERECTOMY, PATCH ANGIOPLASTY/INTERPOSITION GRAFT WITH/WITHOUT PROFUNDOPLASTY Left 04/04/2017 Femoral endarterectomy, patch angioplasty/interposition graft with/without profundoplasty Notes: [id number] ??? NM SESTAMIBI W/DOBUTAMINE 1 DA postive for myocardial ischemia with normal LVEF ??? TOE AMPUTATION Left 05/31/2017 Toe amputation Notes: Left hallux ??? TONSILLECTOMY as a child PREVENTIVE SERVICES Social History Substance Use Topics ??? Smoking status: Former Smoker ??? Smokeless tobacco: Never Used ??? Alcohol use No VITAL SIGNS Vitals: 10/21/17 0900 10/21/17 0908 BP: 114/70 92/68 Patient Position: Sitting Pulse: 80 Temp: 36.7 ??C Weight: 78 kg Body mass index is 26.06 kg/m??. PHYSICAL EXAMINATION General: Patient is alert and oriented times three, in no acute distress, good hygiene and is dressed appropriately. HEENT: Tympanic membranes are normal bilaterally. Oropharynx is without erythema or exudate. Nasal mucosa is without injection. Neck is without adenopathy. Lymph: Not palpably enlarged and no nodules are palpated. Heart: Regular rate and rhythm without murmur. Lungs: Clear to auscultation. Extremities: Within normal limits. ASSESSMENT / PLAN #1 Possible orthostatic hypotension My nurse will check orthostatic blood pressures. Will stop Lisinopril- Hydrochlorothiazide 20-12.5 mg. #2 Increased risk for coronary disease in the setting of peripheral artery disease in setting of previously abnormal stress echo Will obtain sestamibi scan at the [facility] and refer to our tank farm attendant, Dr. Santos Harris. Follow up The patient will contact the clinic with any new or worsening symptoms. This document serves as a record of services personally performed by Renee Lacy MD. It was created on their behalf by Marie Peterson, a trained medical economics consultant. The creation of this record is based on the scribe's personal observations and the provider's statements to them. This document has been parul cked and approved by the attending provider. documented in this encounter Plan of Treatment Not on filedocumented as of this encounter Visit Diagnoses Diagnosis Peripheral Arterial Disease (HCC) - Prim dat documented in this encounter Additional Health Concerns Assessment Noted Time PHQ-9 Depression Total Score: 7 07/22/2017 11:14 AM CS T documented as of this encounter
--- OUTSIDE RECORDS SUMMARY | 2022-03-16 12:27 | XMS_ITS | Encounter Summary ---
:1950 Author Organization [facility] Address [address] [place] [address] Care Team Providers Name Role Phone Unavailable Primary Care Provider Unavailable Reason for Visit Reason Onset Date Comments Care Coordination - Referral 12/01/2017 Encounter Details Date Type Department Care Team Description 12/01/2017 Clinical Communication Department of January Britt re Coordination - Family Medicine, R, R.N. Referral [facility], in [address] [place] [phone] Social History Tobacco Use Types Packs/Day Years [...] week 03/25/2021 How often do you attend nondenominational or taoist services? 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 - 01/03/2018 1:42 PM CDT Latest A1C is 7.8. Patient will not be enrolled in care coordination at this time. Please re-refer in the future if care coordination would benefit the patient. Telephone Encounter - Renee Catalan M.D. - 12/13/2017 10:16 PM CDT Codie, I don't know what January is referring to. Could you find out or maybe when she is in [place] next time she can show me? Telephone Encounter - January Britt R.N. - 12/13/2017 10:[address] Lacy, Can you please send this patient the letter regarding care coordination. You can use .[email or web address] Please let me know if you have any questions. I will reach out to the patient after the letteris sent. Thanks, January Britt RN Business Improvement Manager Telephone Encounter - January Britt R.N. - 12/02/2017 11:04 AM CDT Noted. Will contact patient in one to two weeks for care coordination screening. Thanks, January Britt RN Business Improvement Manager Telephone Encounter - Samia Nunes L.P.N. - 12/02/2017 10:11 AM CDT January, Please see message with goals from Dr. Lacy. Thank you. Telephone Encounter - Renee Catalan M.D. - 12/01/2017 4:25 PM CDT Yes he would be a great candidate for care coordination. His goals should be A1c less than 8 and to become a permanent nonsmoker. Telephone Encounter - January Britt R.N. - 12/01/2017 1:[address] Lacy, Patient was identified as a potential care coordination patient. It appears his last A1C was 9.1 on 07/26/17. Do you feel he would benefit from care coordination? If so what measurable goal would you recommend, A1C< 8? Thanks, January Britt RN Business Improvement Manager documented in this encounter Plan of Treatment Not on filedocumented as of this encounter Visit Diagnoses Not on filedocumented in this encounter Additional Health Concerns Assessment Noted Time PHQ-9 Depression Total Score: 7 07/22/2017 11:14 AM CS T documented as of this encounter
--- OUTSIDE RECORDS SUMMARY | 2022-03-16 12:27 | XMS_ITS | Encounter Summary ---
:1950 Author Organization [facility] Address [address] [place] [address] Care Team Providers Name Role Phone Unavailable Primary Care Provider Unavailable Encounter Details Date Type Department Care Team Description 10/27/2017 Clinical Communication [facility] [place] [address] [place], [place] [phone] Social History Tobacco Use Types Packs/Day Years [...] week 03/25/2021 How often do you attend rastafari or restorationism services? 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 - 10/28/2017 3:54 PM CDT Notified patient that he should hear back sometime next week about setting up the cardiology consult. Patient will see Dr. Lacy on Tuesday10-31-17. Telephone Encounter - Renee Catalan M.D. - 10/27/2017 10:58 PM CDT Order in for cardiology consult documented in this encounter Plan of Treatment Not on filedocumented as of this encounter Visit Diagnoses Not on filedocumented in this encounter Additional Health Concerns Assessment Noted Time PHQ-9 Depression Total Score: 7 07/22/2017 11:14 AM CS T documented as of this encounter
--- OUTSIDE RECORDS SUMMARY | 2022-03-16 12:27 | XMS_ITS | Encounter Summary ---
:1950 Author Organization [facility] Address [address] [place] [address] Care Team Providers Name Role Phone Unavailable Primary Care Provider Unavailable Reason for Visit Reason Comments Med Refill Encounter Details Date Type Department Care Team Description 11/24/2017 Refill Department of Family Medicine, Bambi Adler Med Refill [facility], in [place] M.D. [place] [address] [place] [address] [place] [address] [phone] Social History Tobacco Use Types Packs/Day Years [...] How often do you attend methodist or yarsani services? 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
--- OUTSIDE RECORDS SUMMARY | 2022-03-16 12:27 | XMS_ITS | Encounter Summary ---
:1950 Author Organization [facility] Address [address] [place] [address] Care Team Providers Name Role Phone Unavailable Primary Care Provider Unavailable Reason for Visit Reason Comments Communication Encounter Details Date Type Department Care Team Description 09/07/2017 Clinical Communication Department of [facility] Medicine, Renee Hampton, [facility], in [place] [address] [facility] [place] [phone] Social History Tobacco Use Types Packs/Day Years [...] How often do you attend catholic or samaritan services? 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 - 09/07/2017 3:44 PM CDT New prescription sent with more specific instructions. Telephone Encounter - Susanna Chapin, R.N. - 09/07/2017 2:56 PM CDT Pharmacy needs more specific with frequency. Rx needs to state once daily, once every how many hours, or one time only Telephone Encounter - Chloe Nagy - 09/07/2017 2:15 PM CDT Rx was sent by Dr. Lacy [facility] need a frequency for insurance to cover. Please call him back with clarification. documented in this encounter Plan of Treatment Not on filedocumented as of this encounter Visit Diagnoses Not on filedocumented in this encounter Additional Health Concerns Assessment Noted Time PHQ-9 Depression Total Score: 7 07/22/2017 11:14 AM CS T documented as of this encounter
--- OUTSIDE RECORDS SUMMARY | 2022-03-16 12:27 | XMS_ITS | Encounter Summary ---
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 insulin lispro (HumaLOG Inject 0.1 mL (10 15 mL 3 02/0307/13/2018 Brielle) 100 unit/mL Units total) under injection the skin 3 (three) times a day with meals. lancets [facility] [place]pense item 0 08/23/2014 9 [...] by mouth 2 (two) times a day. tiZANidine (ZANAFLEX) 4 TO ONE TABLET BY 0 201705/11/2019 mg tablet MOUTH THREE TIMES A DAY NEEDED, takes one in the afternoon, one at supper and one at bedtime documented as of this encounter Plan of Treatment Not on filedocumented as of this encounter Procedures Procedure Name Priority Date/Time Associated Comments Diagnosis US AORTA ILIAC RAD - Routine 02/08/2018 3:45 Peripheral Results f or this ARTERIES (most inpatients PM CDT Arterial Disease procedu re are in BILATERAL WITH and all (HCC) the results DOPPLER outpatients) Atherosclerosis Of section. [place] Arteries Of Left Leg With Ulceration Of Unspecified Site (HCC) documented in this encounter Results US Aorta Inferior Vena Cava Iliac Bilateral with Doppler (02/08/2018 3:45 PM CDT) Anatomical Region Laterality Modality Abdomen, Pelvis, Ultrasound RST LOS, Ultrasound ARZ LOS, Rodríguez ateral Ultrasound Ultrasound FLA LOS Specimen (Source) Anatomical Collection Method Collection Time Re ceived Time Location / / Volume Laterality 02/08/2018 4:30 PM CDT Impressions 02/08/2018 8:42 PM CDT IMPRESSION: 1. Right common, external and internal i liac artery stenoses. 2. Patent left common iliac and external iliac artery stents. Elevated velocities are noted in the proximal ext ernal iliac artery at the distal stent end(maximally 385cm/sec) which is new fr om the prior exam and consistent with a significant stenosis with additional inc rease in velocities in the distal external iliac artery (283cm/sec compare d to 155cm/sec in the mid portion) suggesting <50% narrowing distally. ?? Narrative 02/08/2018 8:42 PM CDT EXAM: US AORTA INFERIOR VENA CAVA ILIAC BILATERAL Exam performed with color and spectral D oppler analysis. COMPARISON: Prior ultrasound exams of and 03/28/2017 FINDINGS: Distal abdominal aorta is normal in [place]. RIGHT: Elevated velocities in the mid to distal common iliac artery (maximally 241cm/sec compared to 295cm/sec previous ly) with elevated velocities are also present and similar to prior exam in the proximal external iliac artery (maximally 290cm/sec compared to 275cm/s ec previously) consistent with stenoses. Again noted internal iliac artery is pat ent with elevated velocities consistent with a stenosis(291cm/sec compared to 25 0cm/sec previously). Common femoral artery including bifurcation is patent w ithout stenosis. LEFT: The stented common iliac artery is patent without stenosis. Elevated velocities are noted in the proximal ext ernal iliac artery at the distal stent end( maximally 385cm/sec) which is new f rom the prior exam with additional increase in velocities in the distal ext ernal iliac artery (283cm/sec compared to 155cm/sec in the mid portion) suggest ing <50% narrowing distally. ??Internal iliac artery is patent with no significa nt stenosis noted on today's exam. Left proximal common femoral, profunda femora l and superficial femoral arteries are patent with no stenosis. Procedure Note Maddy Crews M.D. - 02/08/2018Formatt ing of this note might be different from the original. EXAM: US AORTA INFERIOR VENA CAVA ILIAC BILATERAL Exam performed with color and spectral D oppler analysis. COMPARISON: Prior ultrasound exams of and 03/28/2017 FINDINGS: Distal abdominal aorta is normal in [place]. RIGHT: Elevated velocities in the mid to distal common iliac artery (maximally 241cm/sec compared to 295cm/sec previous ly) with elevated velocities are also present and similar to prior exam in the proximal external iliac artery (maximally 290cm/sec compared to 275cm/s ec previously) consistent with stenoses. Again noted internal iliac artery is pat ent with elevated velocities consistent with a stenosis(291cm/sec compared to 25 0cm/sec previously). Common femoral artery including bifurcation is patent w ithout stenosis. LEFT: The stented common iliac artery is patent without stenosis. Elevated velocities are noted in the proximal ext ernal iliac artery at the distal stent end( maximally 385cm/sec) which is new f rom the prior exam with additional increase in velocities in the distal ext ernal iliac artery (283cm/sec compared to 155cm/sec in the mid portion) suggest ing <50% narrowing distally. Internal iliac artery is patent with no significa nt stenosis noted on today's exam. Left proximal common femoral, profunda femora l and superficial femoral arteries are patent with no stenosis. IMPRESSION: 1. Right common, external and internal i liac artery stenoses. 2. Patent left common iliac and external iliac artery stents. Elevated velocities are noted in the proximal ext ernal iliac artery at the distal stent end(maximally 385cm/sec) which is new fr om the prior exam and consistent with a significant stenosis with additional inc rease in velocities in the distal external iliac artery (283cm/sec compare d to 155cm/sec in the mid portion) suggesting <50% narrowing distally. 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
--- OUTSIDE RECORDS SUMMARY | 2022-03-16 12:27 | XMS_ITS | Encounter Summary ---
:1950 Author Organization [facility] Address [address] [place] [address] Care Team Providers Name Role Phone Unavailable Primary Care Provider Unavailable Reason for Visit Reason Comments Med Refill Encounter Details Date Type Department Care Team Description 09/14/2017 Refill Department of Family Medicine, Bambi Adler Med Refill [facility], in Renee Phillips M.D. [place] [address] [place] [address] [place] [address] [phone] Social History Tobacco Use Types Packs/Day Years [...] How often do you attend baptist or scientologist services? 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 Primary Provider: Renee Catalan M.D. Name of medication: Lantus Solostar Strength: 100 UNIT/ML SOPN Frequency: Inject 0.3 mL (30 units) subcutaneously at bedtime. Quantity: 15 Refills: ___ Last Refill: 08/01/17 Pharmacy: [facility] documented in this encounter Plan of Treatment Not on filedocumented as of this encounter Visit Diagnoses Not on filedocumented in this encounter Additional Health Concerns Assessment Noted Time PHQ-9 Depression Total Score: 7 07/22/2017 11:14 AM CS T documented as of this encounter
--- OUTSIDE RECORDS SUMMARY | 2022-03-16 12:27 | XMS_ITS | Encounter Summary ---
:1950 Author Organization [facility] Address [address] [place] [address] Care Team Providers Name Role Phone Unavailable Primary Care Provider Unavailable Reason for Visit Reason Comments Med Refill Encounter Details Date Type Department Care Team Description 12/14/2017 Refill Department of Family Medicine, Bambi Adler Med Refill [facility], in Renee Phillips M.D. [place] [address] [place] [address] [place] [address] [phone] Social History Tobacco Use Types Packs/Day Years [...] How often do you attend rastafarian or tenriism services? 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 - 12/14/2017 5:00 PM CDT Prescription faxed to [facility] documented in this encounter Plan of Treatment Not on filedocumented as of this encounter Visit Diagnoses Diagnosis Restless Leg Syndrome documented in this encounter Additional Health Concerns Assessment Noted Time PHQ-9 Depression Total Score: 7 07/22/2017 11:14 AM CS T documented as of this encounter
--- OUTSIDE RECORDS SUMMARY | 2022-03-16 12:27 | XMS_ITS | Encounter Summary ---
:1950 Author Organization [facility] Address [address] [place] [address] Care Team Providers Name Role Phone Unavailable Primary Care Provider Unavailable Reason for Referral Outpatient (Routine) - Closed Specialty Diagnoses / Procedures Referred By Contact Refer red To Contact Vascular Medicine Kemar Velásquez M.B.B. [facility] [address] [place] [phone] Referral ID Status Reason Start Date Expiration Date Visits Requ ested Visits Authorized [id number] Closed 10/07/2017 10/07/2018 1 1 Encounter Details Date Type Department Care Team Description 10/07/2017 Orders Only Division of Vascular Eickhoff, Periphe ral Arterial Disease (HCC) (Primary Dx); and Endovascular Stacy Mcgee M.S., Athero sclerosis Of [place] Ar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 (HCC); Surgery in [facility] Atherosclerosis Of [place] Arteries Of Le ft Leg With Ulceration Of Unspecified Site (HCC) [address] [place] [address] [phone] Social History Tobacco Use Types Packs/Day Years [...] How often do you attend anabaptism or orthodox services? 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 Vascular Surgery Outpatient Referral Routine Expe cted: office visit 01/07/2018 (clinic) (Approximate), Expires: 10/07/2020 documented as of this encounter Results US Lower Extremity Arteries Bilateral (01/13/2018 10:43 AM CDT) Anatomical Region Laterality Modality Lower Extremity, Ultrasound RST LOS Bilateral Ultr asound Specimen (Source) Anatomical Collection Method Collection Time Re ceived Time Location / / Volume Laterality 01/13/2018 11:02 AM CDT Impressions 01/13/2018 11:05 AM CDT IMPRESSION: ??Patent SFA stents with no stent stenosis. Narrative 01/13/2018 11:05 AM CDT EXAM: US LOWER EXTREMITY ARTERIES BILATERAL Exam performed with color and spectral D oppler analysis. COMPARISON: Prior ultrasound August 08 018 FINDINGS Patent PRODUCTION CONTROL SPECIALIST's and PFA's. Patent SFAs incl uding the stented segments with no stent stenosis. Mild to moderate plaque seen i n the distal SFAs beyond the stents and popliteal arteries with no significant s tenosis greater than 50% seen in ??these arteries. Procedure Note Haseeb Petersen M.D. - 01/13/2018Formatti ng of this note might be different from the original. EXAM: US LOWER EXTREMITY ARTERIES BILATE RAL Exam performed with color and spectral D oppler analysis. COMPARISON: Prior ultrasound August 08 018 FINDINGS Patent PRODUCTION CONTROL SPECIALIST's and PFA's. Patent SFAs incl uding the stented segments with no stent stenosis. Mild to moderate plaque seen i n the distal SFAs beyond the stents and popliteal arteries with no significant s tenosis greater than 50% seen in these arteries. IMPRESSION: Patent SFA stents with no st ent stenosis. Authorizing Provider Result Jimmy ETIENNE US PROCEDURES Lower Extremity Arterial (MIMI) - TCPO2 (Wound) [...] Disease (HCC) - Prim dat Atherosclerosis Of [place] Arteries Of Ex tremities With Intermittent Claudication Right Leg (HCC) Atherosclerosis Of [place] Arteries Of Le ft Leg With Ulceration Of Unspecified Site (HCC) Peripheral Arterial Disease (HCC) Atherosclerosis Of [place] Arteries Of Ex tremities With Intermittent Claudication Right Leg (HCC) Atherosclerosis Of [place] Arteries Of Le ft Leg With Ulceration Of Unspecified Site (HCC) Peripheral Arterial Disease (HCC) Atherosclerosis Of [place] Arteries Of Ex tremities With Intermittent Claudication Right Leg (HCC) Atherosclerosis Of [place] Arteries Of Le ft Leg With Ulceration Of Unspecified Site (HCC) documented in this encounter Additional Health Concerns Assessment Noted Time PHQ-9 Depression Total Score: 7 07/22/2017 11:14 AM CS T documented as of this encounter
--- OUTSIDE RECORDS SUMMARY | 2022-03-16 12:27 | XMS_ITS | Encounter Summary ---
:1950 Author Organization [facility] Address [address] [place] [address] Care Team Providers Name Role Phone Unavailable Primary Care Provider Unavailable Reason for Visit Reason Comments Med Refill Encounter Details Date Type Department Care Team Description 11/07/2017 Refill Department of Family Medicine, Bambi Adler Med Refill [facility], in Renee Phillips M.D. [place] [address] [place] [address] [place] [address] [phone] Social History Tobacco Use Types Packs/Day Years [...] How often do you attend zoroastrianism or confucianism services? 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 Supply Ordered: Accu-Chek Talia plus strips Quantity: 150 Directions: test 6 times daily Refills: 5 Pharmacy: [facility] Please Include the ICD 10 documented in this encounter Plan of Treatment Not on filedocumented as of this encounter Visit Diagnoses Not on filedocumented in this encounter Additional Health Concerns Assessment Noted Time PHQ-9 Depression Total Score: 7 07/22/2017 11:14 AM CS T documented as of this encounter
--- OUTSIDE RECORDS SUMMARY | 2022-03-16 12:27 | XMS_ITS | Encounter Summary ---
:1950 Author Organization [facility] Address [address] [place] [address] Care Team Providers Name Role Phone Unavailable Primary Care Provider Unavailable Reason for Visit Outpatient (Routine) - Closed Specialty Diagnoses / Procedures Referred By Contact Refer red To Contact Radiology Diagnoses Peripheral Arterial Disease (HCC) Atherosclerosis Of [place] Ar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 (HCC) Atherosclerosis Of [place] Arteries Of Left Leg With Ulceration Of Unspecified Site (HCC) Kemar Velásquez M.B.BFeiS. Rst Rad Us Rogo 04 Peripheral Arterial Disease (HCC) Atherosclerosis Of [place] Ar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 (HCC) Atherosclerosis Of [place] Arteries Of Left Leg With Ulceration Of Unspecified Site (HCC) [address] Procedures US LOWER EXTREMITY ARTERIES BILATERAL [place] [address] [place] [address] Phone: Fax: Referral ID Status Reason Start Date Expiration Date Visits Requ ested Visits Authorized [id number] Closed 01/13/2018 01/13/2019 1 1 Encounter Details Date Type Department Care Team Description 01/13/2018 Hospital Encounter Department of Kemar Velásquez Periphe ral Arterial Disease (HCC); Radiology, Santiago DavidB.SFei Atherosclerosis Of [place] Arteries Of Ex tremities With Intermittent Claudication Right Leg (HCC); Building, in [address] Atherosclerosis Of [place] Arteries Of Le ft Leg With Ulceration Of Unspecified Site (HCC) [facility] [address] [phone] [place], [place] (Work) [address] [phone] Social History Tobacco Use Types Packs/Day Years [...] How often do you attend catholic or latter day services? 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 lancets [facility] Dispense item 0 08/23/2014 9 [...] Comments Diagnosis US LOWER RAD - Routine 01/13/2018 10:43 Peripheral Arterial Res ults for this EXTREMITY (most inpatients AM CDT Disease (HCC) procedure are in ARTERIES and all Atherosclerosis Of the resul ts BILATERAL outpatients) [place] Arteries Of section. Extremities With Intermittent Claudication Right Leg (HCC) Atherosclerosis Of [place] Arteries Of Left Leg With Ulceration Of [...] oppler analysis. COMPARISON: Prior ultrasound August 08 FINDINGS Patent GARMENT PARTS CUTTER HAND's and PFA's. Patent SFAs incl uding the [...] oppler analysis. COMPARISON: Prior ultrasound August 08 FINDINGS Patent GARMENT PARTS CUTTER HAND's and PFA's. Patent SFAs incl uding the stented segments with no stent stenosis. Mild to moderate plaque seen i n the distal SFAs beyond the stents and popliteal arteries with no significant s tenosis greater than 50% seen in these arteries. IMPRESSION: Patent SFA stents with no st ent stenosis. Kemar Shuja M.B.B.S. IMG US PROCEDURES documented in this encounter Visit Diagnoses Diagnosis Peripheral Arterial Disease (HCC) Atherosclerosis Of [place] Arteries Of Ex tremities With Intermittent Claudication Right Leg (HCC) Atherosclerosis Of [place] Arteries Of Le ft Leg With Ulceration Of Unspecified Site (HCC) documented in this encounter Additional Health Concerns Assessment Noted Time PHQ-9 Depression Total Score: 3 01/03/2018 10:38 AM CD T documented as of this encounter
--- OUTSIDE RECORDS SUMMARY | 2022-03-16 12:27 | XMS_ITS | Encounter Summary ---
:1950 Author Organization [facility] Address [address] [place] [address] Care Team Providers Name Role Phone Unavailable Primary Care Provider Unavailable Reason for Visit Reason Onset Date Comments Communication 02/03/2018 I had to call and re schedule this patient due to power being out at the [facility] 02-03. He was less than pleased as he has waited 3 w eeks for this appt. I rescheduled him for -14 but he is really hoping you could get him in sooner. Please call and let him know [phone] Encounter Details Date Type Department Care Team Description 02/03/2018 Clinical Communication Department of Carlos julian (I had Family Medicineantony, [facility] in [place], [address] [facility] being out at the [address] [place] [phone] 02-03. He was less [phone] than pleased as he has waited 3 weeks [phone] for this appt. I (Fax) rescheduled him for 11-14 but he is really hoping y ou could get him i n sooner. Please call and let him kno w [phone]) Social History Tobacco Use Types Packs/Day Years [...] How often do you attend islam or rastafarian services? 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 - 02/07/2018 9:19 AM CDT Contacted patient. Informed that he is on the waiting list and will be called if there are any cancellations. Telephone Encounter - Holly Marino - 02/03/2018 9:16 AM CDT I had to call and reschedule this patient due to power being out at the [facility] 02-03. He was less than pleased as he has waited 3 weeks for this appt. I rescheduled him for 03-29 but he is really hoping you could get him in sooner. Please call and let him know [phone] documented in this encounter Plan of Treatment Not on filedocumented as of this encounter Visit Diagnoses Not on filedocumented in this encounter Additional Health Concerns Assessment Noted Time PHQ-9 Depression Total Score: 3 01/03/2018 10:38 AM CD T documented as of this encounter
--- OUTSIDE RECORDS SUMMARY | 2022-03-16 12:27 | XMS_ITS | Encounter Summary ---
:1950 Author Organization [facility] Address [address] [place] [address] Care Team Providers Name Role Phone Unavailable Primary Care Provider Unavailable Reason for Visit Outpatient (Routine) - Closed Specialty Diagnoses / Procedures Referred By Contact Refer red To Contact Vascular Medicine Kemar Velásquez, M.B.B. S. [facility] [address] [place] [phone] Referral ID Status Reason Start Date Expiration Date Visits Requ ested Visits Authorized [id number] Closed 10/07/2017 10/07/2018 1 1 Encounter Details Date Type Department Care Team Description 01/13/2018 Office Visit Division of Vascular Kemar Velásquez Periph eral Arterial Disease (HCC) (Primary Dx); and Endovascular M.B.B.S. Atherosclerosis Of [place] Arteries Of Le ft Leg With Ulceration Of Unspecified Site (HCC) Surgery in [place] [address] [address] [place], [place] [address] [place] [address] [place], [place] [phone] (Work) [phone] Social History Tobacco Use Types Packs/Day Years [...] do you talk on the phone T dorinace a week 03/25/2021 with family, friends, or neighbors? How often do you get together with friends or relatives? Onc e a week 03/25/2021 How often do you attend protestant or nondenominational services? 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 - 01/13/2018 11:00 AM CDT Onesimo Walton : 1950 Visit Date: 01/17/18 SUBJECTIVE CHIEF COMPLAINT/ REASON FOR VISIT: HISTORY OF PRESENT ILLNESS: Onesimo Walton is a 67 y.o. male who returns for follow-up of his bilateral lower extremity peripheral arterial disease. He has claudication in bilateral lower extremities which is slightly worsein the left leg than the right compared to our last conversation. He had a toe amputation on the left side which has healed completely. He is walking and is overall very satisfied with our interventions. The current medications, allergies, medical, surgical, social, and family history sections of the chart have been reviewed and updated as pertinent. OBJECTIVE VITAL SIGNS There were no vitals filed for this visit. PHYSICAL EXAM: General: Alert and oriented, No acute distress. Extremities: Warm, well perfused, no edema VASCULAR EXAM:: Peripheral Vascular Pulse Exam Left Femoral: 1+ Popliteal: non-palpable with doppler signal Posterior tibial: non-palpable (0) Dorsalis pedis: non-palpable(0) Right Femoral: 3+ Popliteal: 3+ Posterior tibial: non-palpable with doppler signal Dorsalis pedis: non-palpable with doppler signal DIAGNOSTIC FINDINGS: I have reviewed the patient's current laboratory, imaging, and other diagnosticstudies as pertinent. I reviewed his arterial ultrasound and he has dampened waveforms in the left femoral artery comparedto the right side. His toe brachial index has also dropped from 0.44 down to 0.2. ASSESSMENT / PLAN 67-year-old gentleman with bilateral lower extremity peripheral arterial disease who has undergone bilateral iliac stents by our interventional Radiology colleagues. I have performed left femoral endarterectomy and bilateral lower extremity atherectomy christina stenting. Based on his ultrasound imaging am afraid that he is developing stenosis of the left iliac stents. I would like to obtain a CT scan to verify that and if necessary perform of balloon angioplasty as indicated. I will be in touch with him after I have had a chance to review his CT scan. He is to remain on dual anti-platelet therapy as well as a statin. 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 documented in this encounter Plan of Treatment Not on filedocumented as of this encounter Results US Aorta Inferior Vena [...] mid portion) suggesting <50% narrowing distally. Kemar ROMERO US PROCEDURES documented in this encounter Visit Diagnoses Diagnosis Peripheral Arterial Disease (HCC) - Prim dat Atherosclerosis Of [place] Arteries Of Le ft Leg With Ulceration Of Unspecified Site (HCC) Peripheral Arterial Disease (HCC) Atherosclerosis [place] Arteries Of Le ft Leg With Ulceration Of Unspecified Site (HCC) documented in this encounter Additional Health Concerns Assessment Noted Time PHQ-9 Depression Total Score: 3 01/03/2018 10:38 AM CD T documented as of this encounter
[2022-03-16 12:28] LABS: RBC Urine 0-2 (0-2); Squamous Epithelial Cell Urine Few (None-Few); WBC Urine 0-2 (0-5)
--- OUTSIDE RECORDS SUMMARY | 2022-03-16 12:28 | XMS_ITS | Encounter Summary ---
:1950 Author Organization [facility] Address [address] [place] [address] Care Team Providers Name Role Phone Unavailable Primary Care Provider Unavailable Reason for Visit Reason Comments Med Refill Encounter Details Date Type Department Care Team Description 08/02/2017 Refill Department of Family Medicine, Bambi Adler Med Refill [facility], in Renee Phillips M.D. [place] [address] [place] [address] [place] [address] [phone] Social History Tobacco Use Types Packs/Day Years Used Date Smoking Tobacco: Heavy Smoker Smokeless Tobacco: Never Alcohol Use Standard Drinks/Week [...] How often do you attend christianity or quaker services? 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
--- OUTSIDE RECORDS SUMMARY | 2022-03-16 12:28 | XMS_ITS | Encounter Summary ---
:1950 Author Organization [facility] Address [address] [place] [address] Care Team Providers Name Role Phone Unavailable Primary Care Provider Unavailable Encounter Details Date Type Department Care Team Description 08/30/2017 Abstract Department of Family Medicine, Provider, Historical [facility], in [place], [place] [address] [place] [address] Social History Tobacco Use [...] How often do you attend mosque or uatsdin services? 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
--- OUTSIDE RECORDS SUMMARY | 2022-03-16 12:28 | XMS_ITS | Encounter Summary ---
:1950 Author Organization [facility] Address [address] [place] [address] Care Team Providers Name Role Phone Unavailable Primary Care Provider Unavailable Encounter Details Date Type Department Care Team Description 07/26/2017 Hospital Encounter Department of [facility] Diabete s Mellitus Type Laboratory Medicine belinda, 2 With Kylah inman in Renee Phillips M.D. Polyneuropathy (HCC) [place] [address] [place] [phone] Social History Tobacco Use Types Packs/Day Years Used Date Smoking Tobacco: Every Day Smokeless Tobacco: Never Alcohol Use Standard Drinks/Week [...] How often do you attend shinto or alevism services? 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 Take in evening DULoxetine (CYMBALTA) 60 Take 60 mg by mouth [address] capsule at bedtime. omeprazole (PriLOSEC) 40 Take 40 mg by mouth [address] capsule every evening. ACCU-CHEK XIAO PLUS TEST 6 (six) times a day. 5 01/20/2017 11/07/2017 STRP strips for testing acetaminophen Take 500-1,000 mg by 0 1 06/18/2017 (for_TYLENOL) 500 mg mouth every 6 (six) tablet hours as needed for pain. amLODIPine (for_NORVASC) Take 1 tablet by 0 12/2812/26/2017 10 mg tablet mouth daily. atorvastatin Take 1 tablet by 0 08/16/20162017 (for_LIPITOR) 20 mg mouth at bedtime. tablet clopidogrel (for_PLAVIX) Take 75 mg by mouth 0 04/04/2018 75 mg tablet daily. colchicine (for_COLCRYS) Take 1 tablet by 0 06/2209/07/2017 0.6 mg tablet mouth once as needed. lancets [facility] Dispense item 0 08/23/2014 9 covered by pt ins. 250.02 IDDM type II Tests 4 times/day. Reason: High A1c. History labile sugars, hypertension, poor control lisinopril-hydroCHLOROthi Take 1 tablet by 0 02/0 11/201610/21/2017 azide mouth daily. (for_PRINZIDE,ZESTORETIC) 20-12.5 mg per tablet lisinopril-hydroCHLOROthi Take 1 tablet by 0 10/0 07/201505/08/2020 azide mouth daily. (PRINZIDE,ZESTORETIC) 20-12.5 mg per tablet metoprolol succinate Take 1 tablet (200 90 tablet 3 017 04/05/2018 (for_TOPROL-XL) 200 mg 24 mg total) by mouth hr tablet daily. Do not crush or chew. nicotine (NICOTROL) 10 mg Inhale as directed. 0 1 06/20/2016 01/03/2018 inhaler nortriptyline Take 1 capsule by 0 12/22/2016 08/2 05/2017 (for_PAMELOR) 25 mg mouth daily. capsule oxyCODONE (OxyCONTIN) 30 Take 20 mg by mouth 0 01/03/2018 mg 12 hr tablet every 12 (twelve) hours. 30 mg every am and 20 mg every evening with evening meal OXYCODONE HCL (OXYCODONE Take 10 mg by mouth 0 01/03/2018 ORAL) every 4 (four) hours as needed (pain). Taper off over the next few days. pantoprazole Take 40 mg by mouth 0 (for_PROTONIX) 40 mg EC once daily. tablet pen needle, diabetic 31 Inject 1 each under 150 each 3 01/201704/20/2018 gauge x 5/16 needle the skin 4 (four) times a day. rOPINIRole XL (for_REQUIP Take 2 mg by mouth 2 0 08/04/2017 XL) 2 mg 24 hr tablet (two) times a day. varenicline (CHANTIX) 0.5 Take 1 tablet by 0 09/201601/03/2018 mg tablet mouth 2 (two) times a day. documented as of this encounter Plan of Treatment Not on filedocumented as of this encounter Procedures Procedure Name Priority Date/Time Associated Diagnosis Comme nts ALBUMIN, RANDOM, U Routine 07/26/2017 8:52 AM Diabetes Mellitu s Type Results for this CDT 2 With Diabetic procedure ar e in Polyneuropathy (HCC) the res ults section. documented in this encounter Results (ABNORMAL) Microalbumin, Random, Urine (07/26/2017 8:52 AM CDT) [facility] Method Time Signature Microalbumin 81.2 mg/L 07/26/2017 [facility] 11:34 AM [facility] Creatinine 53 mg/dL 07/26/2017 [facility] 11:[address] [facility] Albumin/Creatinin 153 (H) <17 mg/g 07/26/2017 [facility] e Ratio 11:34 AM [facility] Specimen Anatomical Collection Method Collection Time Receive d Time (Source) Location / / Volume Laterality Urine (Urine, 07/26/2017 8:52 AM 07/27/19 18 Clean Catch) CDT 10:44 AM CDT Renee Catalan M.D. LAB URINE ORDERABLES Performing Organization Address City/State/ZIP Code Phon e Number [facility] [address] [place] [address] LAB documented in this encounter Visit Diagnoses Diagnosis Diabetes Mellitus Type 2 With Diabetic P olyneuropathy (HCC) documented in this encounter Additional Health Concerns Assessment Noted Time PHQ-9 Depression Total Score: 7 07/22/2017 11:14 AM CS T documented as of this encounter
--- OUTSIDE RECORDS SUMMARY | 2022-03-16 12:28 | XMS_ITS | Encounter Summary ---
:1950 Author Organization [facility] Address [address] [place] [address] Care Team Providers Name Role Phone Renee Catalan M.D. Primary Care Provider [phone] Encounter Details Date Type Department Care Team Description 05/27/2017 Hospital Encounter HX NO MAPPING Social History Tobacco Use Types Packs/Day Years [...] How often do you attend mandaen or lutheran services? 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 Last Filed Vital Signs Vital Sign Reading Time Taken Comments Blood Pressure 147/64 05/27/2017 3:35 PM INVESTMENT BANKING MANAGER Pulse 62 05/27/2017 10:45 AM INVESTMENT BANKING MANAGER Temperature - - Respiratory Rate 16 05/27/2017 3:35 PM INVESTMENT BANKING MANAGER Oxygen Saturation - - Inhaled Oxygen Concentration - - Weight 75.6 kg (166 lb 10.7 oz) 05/27/2017 6:19 AM INVESTMENT BANKING MANAGER Height 176 cm (5' 9.29) 05/27/2017 6:19 AM INVESTMENT BANKING MANAGER Body Mass Index 24.41 05/27/2017 6:19 AM INVESTMENT BANKING MANAGER documented in this encounter Medications at Time of Discharge Medication Sig Dispensed Refills Start Date End Date aspirin [address] Take 325 mg by mouth 0 tablet daily. Take in evening DULoxetine (CYMBALTA) Take 60 mg by mouth at [address] capsule bedtime. omeprazole (PriLOSEC) Take 40 mg by mouth 0 09/[address] capsule every evening. ACCU-CHEK XIAO PLUS 6 (six) times a day. 5 01/2011/07/2017 TEST STRP strips for testing acetaminophen Take 500-1,000 mg by 0 1 06/18/2017 (for_TYLENOL) 500 mg mouth every 6 (six) tablet hours as needed for pain. amLODIPine Take 1 tablet by mouth 0 12/28/2016 (for_NORVASC) 10 mg daily. tablet amoxicillin-pot Take 1 tablet by mouth 0 07/22/2017 clavulanate every 12 (twelve) (for_AUGMENTIN) 875-125 hours. One tablet mg per tablet twice daily x 5 days. Started 04-05-17. aspirin 81 mg chewable Chew 1 tablet daily. 0 05/201107/22/2017 tablet atorvastatin Take 1 tablet by mouth 0 08/16/2016 08/02/2017 (for_LIPITOR) 20 mg at bedtime. tablet clopidogrel Take 75 mg by mouth 0 03/17 (for_PLAVIX) 75 mg daily. tablet colchicine Take 1 tablet by mouth 0 06/22/2016 (for_COLCRYS) 0.6 mg once as needed. tablet collagenase (SANTYL) Apply 1 application 0 07/22/2017 250 unit/gram ointment topically daily. Thin dime sized layer of Santyl once daily to left anterior tibial and left great toe wounds gabapentin Take 1 capsule by 0 08/16/2016 018 (for_NEURONTIN) 300 mg mouth daily. capsule insulin glargine Inject 30 Units under 0 02/16/20 16 07/22/2017 (for_LANTUS SoloStar) the skin. 100 unit/mL (3 mL) injection insulin lispro (HumaLOG Inject under the skin 0 0 06/22/2016 07/22/2017 KwikPen) 100 unit/mL 3 (three) times a day injection before meals. [facility]ets [facility] Disp[facility] item covered 0 08/23/2014 1 by pt ins. 250.02 IDDM type II Tests 4 times/day. Reason: High A1c. History labile sugars, hypertension, poor control lisinopril-hydroCHLOROt Take 1 tablet by mouth 0 06/22/2016 10/21/2017 hiazide daily. (for_PRINZIDE,ZESTORETI C) 20-12.5 mg per tablet lisinopril-hydroCHLOROt Take 1 tablet by mouth 0 02/16/2016 05/08/2020 hiazide daily. (PRINZIDE,ZESTORETIC) 20-12.5 mg per tablet metoprolol succinate Take 1 tablet (200 mg 90 tablet 3 03/1704/05/2018 (for_TOPROL-XL) 200 mg total) by mouth daily. 24 hr tablet Do not crush or chew. naproxen (for_NAPROSYN) Take 500 mg by mouth 2 11 05/12/2017 07/22/2017 500 mg tablet (two) times a day with meals. nicotine (NICOTROL) 10 Inhale as directed. 0 09/201601/03/2018 mg inhaler nortriptyline Take 1 capsule by 0 12/22/201612/15 (for_PAMELOR) 25 mg mouth daily. capsule OMEPRAZOLE ORAL Take 1 capsule by 0 06/22/2016 mouth daily. oxyCODONE (OxyCONTIN) Take 20 mg by mouth 0 06/2201/03/2018 30 mg 12 hr tablet every 12 (twelve) hours. 30 mg every am and 20 mg every evening with evening meal OXYCODONE HCL Take 10 mg by mouth 0 (OXYCODONE ORAL) every 4 (four) hours as needed (pain). Taper off over the next few days. pantoprazole Take 40 mg by mouth 0 (for_PROTONIX) 40 mg EC once daily. tablet pen needle, diabetic 31 Inject 1 each under 150 each 3 01/201704/20/2018 gauge x 5/16 needle the skin 4 (four) times a day. rOPINIRole (for_REQUIP) Take 1 tablet by mouth 0 10/28/2016 07/22/2017 2 mg tablet 2 (two) times a day. rOPINIRole XL Take 2 mg by mouth 2 0 0 08/04/2017 (for_REQUIP XL) 2 mg 24 (two) times a day. hr tablet sennosides-docusate Take 1-2 tablets by 0 07/22/2017 sodium (for_SENOKOT-S) mouth once daily. Take 8.6-50 mg per tablet once daily prn constipation varenicline (CHANTIX) Take 1 tablet by mouth 0 01/03/2018 0.5 mg tablet 2 (two) times a day. documented as of this encounter Plan of Treatment Not on filedocumented as of this encounter Visit Diagnoses Not on filedocumented in this encounter Additional Health Concerns Assessment Noted Time PHQ-9 Depression Total Score: 6 12/22/2016 10:26 AM CD T documented as of this encounter Care Teams Credit Collection Associate Relationship Specialty Start Date End Date Renee Catalan M.D. PCP - General Family Medicine 04/11/17 07/18/[address] [phone] documented as of this encounter
--- OUTSIDE RECORDS SUMMARY | 2022-03-16 12:28 | XMS_ITS | Encounter Summary ---
:1950 Author Organization [facility] Address [address] [place] [address] Care Team Providers Name Role Phone Unavailable Primary Care Provider Unavailable Encounter Details Date Type Department Care Team Description 08/08/2017 Telemedicine Department of Vascular Social History Tobacco Use [...] How often do you attend amish or nondenominational services? 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 documented in this encounter Results VASCULAR IMAGE EXAM (08/08/2017 1:30 PM CDT) Specimen (Source) Anatomical Collection Method Collection Time Re ceived Time Location / / Volume Laterality 08/08/2017 1:30 PM CDT Narrative [facility] - 08/08/2017 1:47 PM CDT This order has been created and [...]
--- OUTSIDE RECORDS SUMMARY | 2022-03-16 12:28 | XMS_ITS | Encounter Summary ---
:[address] [facility] Address [address] [place] [address] Care Team Providers Name Role Phone Unavailable Primary Care Provider Unavailable Encounter Details Date Type Department Care Team Description 09/06/2017 Hospital Encounter Department of Radiology [place]hbrodt- Glenz Pain Wrist Left in [place], [facility] Renee james, [address] [facility] [place] [address] [address] [place], [place] [phone] [address] Social History Tobacco Use Types Packs/Day [...] How often do you attend restorationist or voodoo services? 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 for testing acetaminophen Take 500-1,000 mg 0 07/2017 (for_TYLENOL) [...] 0.6 mg tablet mouth once as needed. insulin lispro Inject 0.1 mL (10 15 mL 3 07/30/2017 (for_HumaLOG KwikPen) 100 Units total) under unit/mL injection the skin 3 (three) times a day with meals. lancets [facility] Dispense item 0 08/23/2014 9 covered by pt ins. 250.02 IDDM type II Tests 4 times/day. Reason: High A1c. History labile sugars, hypertension, poor control LANTUS SOLOSTAR U-100 30 Units. 3 08/01/201706/2017 INSULIN 100 unit/mL (3 mL) injection lisinopril-hydroCHLOROthi Take 1 tablet by 0 02/0 [...] times a day. rOPINIRole XL (for_REQUIP Take 1 tablet (2 [...] Procedure Name Priority Date/Time Associated Comments Diagnosis DX WRIST LEFT 2 RAD - Routine 09/06/2017 3:16 Pain Wrist Left Resul ts for this VIEWS (most inpatients PM CDT procedure a re in and all the results outpatients) section. documented in this encounter Results DX Wrist Left 2 Views (09/06/2017 3:16 PM CDT) Anatomical Region Laterality Modality Upper Extremity, Wrist, Musculoskeletal RST LOS Left Computed Radiography Specimen (Source) Anatomical Collection Method Collection Time Re ceived Time Location / / Volume Laterality 09/06/2017 3:17 PM CDT Impressions 09/06/2017 3:19 PM CDT IMPRESSION: Advanced degenerative change radiocarpal joint with subchondral sclerosis in the radius and scaphoid. Mo derate degenerative change at the STT joint. Additional scattered mild degener ative change. 7 mm well-corticated osseous density dorsal to the carpal bon es on the lateral view may be due to old trauma. Arterial calcification. Narrative 09/06/2017 3:19 PM CDT EXAM: DX WRIST LEFT 2 VIEWS Procedure Note Kaylyn Lopez M.D. - 09/06/2017Form atting of this note might be different from the original. EXAM: DX WRIST LEFT 2 VIEWS IMPRESSION: Advanced degenerative change radiocarpal joint with subchondral sclerosis in the radius and scaphoid. Mo derate degenerative change at the STT joint. Additional scattered mild degener ative change. 7 mm well-corticated osseous density dorsal to the carpal bon es on the lateral view may be due to old trauma. Arterial calcification. Renee ETIENNE [facility] PROCEDURES documented in this encounter Visit Diagnoses Diagnosis Pain Wrist Left documented in this encounter Additional Health Concerns Assessment Noted Time PHQ-9 Depression Total Score: 7 07/22/2017 11:14 AM CS T documented as of this encounter
--- OUTSIDE RECORDS SUMMARY | 2022-03-16 12:28 | XMS_ITS | Encounter Summary ---
:1950 Author Organization [facility] Address [address] [place] [address] Care Team Providers Name Role Phone Renee Catalan M.D. Primary Care Provider [phone] Encounter Details Date Type Department Care Team Description 05/31/2017 Hospital Encounter HX NO MAPPING Social History [...] How often do you attend bahai or methodist services? Never 03/25/2021 Do you [...] slept in a senior living (including now)? 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 lancets [facility] Dispense item covered 0 08/23/2014 1 by [...] documented as of this encounter Care Teams Logging Engineer Relationship Specialty Start Date End Date Renee Catalan M.D. PCP - General Family Medicine 04/11/17 07/18/[address] [phone] documented as of this encounter
--- OUTSIDE RECORDS SUMMARY | 2022-03-16 12:28 | XMS_ITS | Encounter Summary ---
:1950 Author Organization [facility] Address [address] [place] [address] Care Team Providers Name Role Phone Unavailable Primary Care Provider Unavailable Encounter Details Date Type Department Care Team Description 07/27/2017 Abstract Department of Family Medicine, Provider, Historical [facility], in [place], [place] [address] [place] [address] Social History Tobacco Use [...] How often do you attend sikh or amish services? 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
--- OUTSIDE RECORDS SUMMARY | 2022-03-16 12:28 | XMS_ITS | Encounter Summary ---
:1950 Author Organization [facility] Address [address] [place] [address] Care Team Providers Name Role Phone Unavailable Primary Care Provider Unavailable Reason for Visit Reason Comments Med Refill Encounter Details Date Type Department Care Team Description 08/04/2017 Refill Department of Family Medicine, Bambi Chula Med Refill [facility] [address] [place] [address] [place] [address] [facility] [phone] Social History Tobacco Use Types Packs/Day Years [...] How often do you attend tenriism or orthodox services? 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
--- OUTSIDE RECORDS SUMMARY | 2022-03-16 12:28 | XMS_ITS | Encounter Summary ---
:1950 Author Organization [facility] Address [address] [place] [address] Care Team Providers Name Role Phone Renee Catalan M.D. Primary Care Provider [phone] Encounter Details Date Type Department Care Team Description 05/31/2017 Telemedicine Department of Anesthesiology Social History Tobacco Use Types Packs/Day Years [...] How often do you attend anabaptism or worship services? 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 documented in this encounter Results ANESTHESIOLOGY IMAGE EXAM (05/31/2017 8:14 AM SOCIAL INSURANCE ADMINISTRATOR) Specimen (Source) Anatomical Collection Method Collection Time Re ceived Time Location / / Volume Laterality 05/31/2017 8:13 AM SOCIAL INSURANCE ADMINISTRATOR Narrative [facility] - 05/31/2017 8:14 AM SOCIAL INSURANCE ADMINISTRATOR This order has been created and auto-finalized to support the import of images acquired without order. The clini ammy documentation to support these images can be found on the encounter dioni t produced images. Provider Not In System IMG NON RAD IMAGING PROCEDUR ES Performing Organization Address City/State/ZIP Code Phon e Number [place] [facility] NA documented in this encounter Visit Diagnoses Not on filedocumented in this encounter Additional Health Concerns Assessment Noted Time PHQ-9 Depression Total Score: 6 12/22/2016 10:26 AM CD T documented as of this encounter Care Teams Shear Operator Helper Relationship Specialty Start Date End Date Renee Catalan M.D. PCP - General Family Medicine 04/11/17 07/18/[address] [phone] documented as of this encounter
--- OUTSIDE RECORDS SUMMARY | 2022-03-16 12:28 | XMS_ITS | Encounter Summary ---
:1950 Author Organization [facility] Address [address] [place] [address] Care Team Providers Name Role Phone Renee Catalan M.D. Primary Care Provider [phone] Encounter Details Date Type Department Care Team Description 07/01/2017 Abstract Department of Family Medicine, Provider, Historical [facility], in [place], [place] [address] [place] [address] Social History Tobacco Use Types Packs/Day [...] How often do you attend jewish or hindu services? 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 PCP - General Family Medicine 04/11/17 07/18/[address] [phone] documented as of this encounter
--- OUTSIDE RECORDS SUMMARY | 2022-03-16 12:28 | XMS_ITS | Encounter Summary ---
:1950 Author Organization [facility] Address [address] [place] [address] Care Team Providers Name Role Phone Unavailable Primary Care Provider Unavailable Encounter Details Date Type Department Care Team Description 08/31/2017 Hospital Encounter HX NO MAPPING Social History [...] How often do you attend advent or sikhism services? 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 lancets misc Dispense item 0 08/23/2014 9 covered by pt ins. 250.02 IDDM type II Tests 4 times/day. Reason: High A1c. History labile sugars, hypertension, poor control LANTUS SOLOSTAR U-100 30 Units. 3 08/01/201706/2017 INSULIN 100 unit/mL (3 mL) injection lisinopril-hydroCHLOROthi Take 1 tablet by 0 11/201610/21/2017 azide mouth daily. (for_PRINZIDE,ZESTORETIC) 20-12.5 mg per tablet lisinopril-hydroCHLOROthi Take 1 tablet by 0 0 07/201505/08/2020 azide mouth daily. (PRINZIDE,ZESTORETIC) 20-12.5 mg per tablet metoprolol succinate Take 1 tablet (200 90 tablet 3 017 04/05/2018 (for_TOPROL-XL) 200 mg 24 mg total) by mouth hr tablet daily. Do not crush or chew. nicotine (NICOTROL) 10 mg Inhale as directed. 0 1 06/20/2016 01/03/2018 inhaler nortriptyline Take 1 capsule by 0 12/22/201612/15 05/2017 (for_PAMELOR) 25 mg mouth daily. capsule [...]
--- OUTSIDE RECORDS SUMMARY | 2022-03-16 12:28 | XMS_ITS | Encounter Summary ---
:1950 Author Organization [facility] Address [address] [place] [address] Care Team Providers Name Role Phone Unavailable Primary Care Provider Unavailable Encounter Details Date Type Department Care Team Description 07/30/2017 Orders Only Department of [facility] Radha velasquez, Medicine, [facility] in [facility] videotape operator [address] [place] [address] [place] [phone] (Wo rk) Social History Tobacco Use Types [...] How often do you attend restorationist or worship services? 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
--- OUTSIDE RECORDS SUMMARY | 2022-03-16 12:28 | XMS_ITS | Encounter Summary ---
:1950 Author Organization [facility] Address [address] [place] [address] Care Team Providers Name Role Phone Renee Catalan M.D. Primary Care Provider [phone] Encounter Details Date Type Department Care Team Description 05/27/2017 Telemedicine Department of Vascular Surgery Social History Tobacco [...] week 03/25/2021 How often do you attend orthodoxy or amish services? 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 documented in this encounter Results VASCULAR SURGERY IMAGE EXAM (05/27/2017 4:10 PM PULMONARY FUNCTION TECHNOLOGIST) Specimen (Source) Anatomical Collection Method Collection Time Re ceived Time Location / / Volume Laterality 05/27/2017 4:07 PM PULMONARY FUNCTION TECHNOLOGIST Narrative [facility] - 05/27/2017 4:10 PM PULMONARY FUNCTION TECHNOLOGIST This order has been created and auto-finalized to support the import of images acquired without order. The clini ammy documentation to support these images can be found on the encounter dioni t produced images. Provider Not In System IMG NON RAD IMAGING PROCEDUR ES Performing Organization Address City/State/ZIP Code Phon e Number IIND [facility] NA documented in this encounter Visit Diagnoses Not on filedocumented in this encounter Additional Health Concerns Assessment Noted Time PHQ-9 Depression Total Score: 6 12/22/2016 10:26 AM CD T documented as of this encounter Care Teams Fast Food Supervisor Relationship Specialty Start Date End Date Renee Ctaalan M.D. PCP - General Family Medicine 04/11/17 07/18/[address] [phone] documented as of this encounter
--- OUTSIDE RECORDS SUMMARY | 2022-03-16 12:28 | XMS_ITS | Encounter Summary ---
:1950 Author Organization [facility] Address [address] [place] [address] Care Team Providers Name Role Phone Unavailable Primary Care Provider Unavailable Encounter Details Date Type Department Care Team Description 09/02/2017 Orders Only HX NO MAPPING Fahad Woodard M.D. Nonpr essure Chronic Ulcer Of Other Part O f Left Foot With Unspecifie d Severity (HCC) Social History Tobacco Use Types Packs/Day [...] How often do you attend sabianism or zoroastrianism services? 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
--- OUTSIDE RECORDS SUMMARY | 2022-03-16 12:28 | XMS_ITS | Encounter Summary ---
:1950 Author Organization [facility] Address [address] [place] [address] Care Team Providers Name Role Phone Renee Catalan M.D. Primary Care Provider [phone] Encounter Details Date Type Department Care Team [...] week 03/25/2021 How often do you attend caodaism or restorationist services? 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 lancets [facility] Dispense item covered 0 08/23/2014 [...] documented as of this encounter Care Teams Sql Ssrs Developer Relationship Specialty Start Date End Date Renee Catalan M.D. PCP - General Family Medicine 04/11/17 07/18/[address] [phone] documented as of this encounter
--- OUTSIDE RECORDS SUMMARY | 2022-03-16 12:28 | XMS_ITS | Encounter Summary ---
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 [address] [place] [phone] Referral ID Status Reason Start Date Expiration Date Visits Requ ested Visits Authorized [id number] Closed 02/25/2017 08/24/2017 1 1 Encounter Details Date Type Department Care Team Description 07/22/2017 Office Visit Department of [facility] Rosa Zacarias APRN, C.N.P. [address] [place] [phone] Hypertension And Chronic Kidney Disease Stage 1 To 4 (Primary Dx); Medicine, [place] Renee Catalan M.D. [address] [place] [phone] Diabetes Mellitus Type 2 With Diabetic P olyneuropathy (HCC); Clinic, in [place], Diabet es Mellitus Type 2 With Other Circulatory Complication Hyperglycemic (HCC); [place] Hypertension Essential Prima ry; [address] Hyperlipidemia [facility] [phone] Social History Tobacco Use Types Packs/Day Years [...] How often do you attend voodoo or hindu services? 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 documented as of this encounter Last Filed Vital Signs Vital Sign Reading Time Taken Comments Blood Pressure 108/80 07/22/2017 11:04 AM MEDIA PRODUCTION SUPPORT MANAGER Pulse 76 07/22/2017 11:04 AM MEDIA PRODUCTION SUPPORT MANAGER Temperature 36.9 ??C (98.4 ??F) 07/22/2017 11:04 AM MEDIA PRODUCTION SUPPORT MANAGER Respiratory Rate 16 07/22/2017 11:04 AM MEDIA PRODUCTION SUPPORT MANAGER Oxygen Saturation - - Inhaled Oxygen Concentration - - Weight 77 kg (169 lb 12.1 oz) 07/22/2017 11:04 AM MEDIA PRODUCTION SUPPORT MANAGER Height 173 cm (5' 8.11) 07/22/2017 11:04 AM MEDIA PRODUCTION SUPPORT MANAGER Body Mass Index 25.73 07/22/2017 11:04 AM MEDIA PRODUCTION SUPPORT MANAGER documented in this encounter Progress Notes Renee Catalan M.D. - 07/22/2017 11:00 AM CST CHIEF COMPLAINT/ REASON FOR VISIT Diabetic check. HISTORY OF PRESENT ILLNESS Onesimo Walton is a 67 y.o. male who presents to the clinic today for diabetic check. He states that his blood sugars have been out of whack with his recent surgeries. Onesimo checks his blood sugars 4-5 times a day and typically finds his sugars are better controlled mid-day with readings in the 150s. There are times when his sugars are 400 or higher during the day. He thinks higher blood sugars may also be attributed to him snacking more since quitting smoking at the end of April. Last week Onesimo started to take 35 units of Lantus insulin once daily to try to get better control of his blood sugars. He follows with a pain clinic in [place]. He occasionally needs to take short- acting Oxycodone in addition to OxyContin. The patient denies any additional questions or [...] (for_LIPITOR) 20 mg tablet Take 1 tablet by mouth at bedtime. ??? clopidogrel (for_PLAVIX) 75 mg tablet Take 75 mg by mouth daily. ??? colchicine (for_COLCRYS) 0.6 mg tablet Take 1 tablet by mouth once as needed. ??? DULoxetine (for_CYMBALTA) [address] capsule Take 1 capsule by mouth 2 (two) times a day. ??? lancets misc Dispense item covered by pt ins. 250.02 IDDM type II Tests 4 times/day. Reason: High A1c. History labile sugars, hypertension, poor control ??? lisinopril-hydroCHLOROthiazide (for_PRINZIDE,ZESTORETIC) 20-12.5 mg per tablet Take 1 tablet by mouth daily. ??? metoprolol succinate (for_TOPROL-XL) 200 mg 24 hr tablet Take 1 tablet (200 mg total) by mouth daily. Do not crush or chew. 90 tablet 3 ??? nicotine (NICOTROL) 10 mg inhaler Inhale as directed. ??? nortriptyline (for_PAMELOR) 25 mg capsule Take 1 capsule by mouth daily. ??? oxyCODONE (OxyCONTIN) 30 mg 12 hr tablet Take 1 tablet by mouth every 12 (twelve) hours. 30 mg every am and 20 mg every evening with evening meal ??? OXYCODONE HCL (OXYCODONE ORAL) Take 5-10 mg by mouth every 6 (six) hours as needed (pain). Taperoff over the next few days. ??? pantoprazole (for_PROTONIX) 40 mg EC tablet Take 40 mg by mouth once daily. ??? pen needle, diabetic 31 gauge x 16 needle Inject 1 each under the skin 4 (four) times a day. 150 each 3 ??? rOPINIRole XL (for_REQUIP XL) 2 mg 24 hr tablet Take 2 mg by mouth 2 (two) times a day. ??? varenicline (CHANTIX) 0.5 mg tablet Take 1 tablet by mouth 2 (two) times a day. No current facility-administered medications for this visit. ALLERGIES Allergies Allergen Reactions ??? Morphine Itching and Rash itchy ??? Pregabalin Anaphylaxis swell ??? Bkmhntv-Jzk-Pkj Reductase Inhibitors Myalgia PAST MEDICAL / SURGICAL [...] Left 04/04/2017 Diagnostic lower extremity angiogram ??? ENDARTERECTOMY FEMORAL - ANGIOPLASTY/INTERPOSITION PATCH GRAFT WITH OR WITHOUT PROFUNDOPLASTY Left 04/04/2017 Due to critical limb ischemia, left lower extremity, secondary to atherosclerosis ??? ENDOVASCULAR ILIAC AND/OR FEMORAL AND/OR POPLITEAL AND /OR TIBIAL ARTERY ANGIOPLASTY/STENT Left 04/04/2017 Endovascular iliac and/or femoral and/or popliteal and /or tibial artery angioplasty/stent Notes: [id number] ??? FEMORAL ENDARTERECTOMY, PATCH ANGIOPLASTY/INTERPOSITION GRAFT WITH/WITHOUT PROFUNDOPLASTY Left 04/04/2017 Femoral endarterectomy, patch angioplasty/interposition graft with/without profundoplasty Notes: [id number] ??? NM SESTAMIBI W/DOBUTAMINE 1 DA postive for myocardial ischemia with normal LVEF ??? TONSILLECTOMY as a child PREVENTIVE SERVICES Social History Substance Use Topics ??? Smoking status: Current Every Day Smoker ??? Smokeless tobacco: Never Used ??? Alcohol use No Colon cancer screenin08/24/2016 - negative FIT test. Immunization History Administered Date(s) Administered ??? HZV (ZOSTAVAX) 02/02/2012 ??? Influenza TIV (IM) 04/04/2006, 03/03/2007, 03/13/2008, 02/13/2010, 05/27/2011, 02/02/2012, 05/10/2013 ??? Influenza, Unspecified 05/10/2013, 02/13/2014, 03/17/2015, 02/16/2016, 02/16/2016, 02/10/2017 ??? PCV13 04/11/2017 ??? PPSV23 02/13/2010, 02/14/2012 ??? Td (Adult), adsorbed 05/16/1996, 03/24/2007 ??? Tdap 08/16/2016, 08/16/2016 VITAL SIGNS BP 108/80 (BP Location: Left arm, Patient Position: Sitting, Cuff Size: Regular) Pulse 76 Temp 36.9 ??C (Temporal) Resp 16 Ht 173 cm Wt 77 kg BMI 25.73 kg/m?? PHYSICAL EXAMINATION General: Patient is alert and oriented times three, in no acute distress, good hygiene and is dressed appropriately. ENT: Tympanic membranes are normal bilaterally. Oropharynx is without erythema or exudate. Nasal mucosa is without injection. Neck: Is without adenopathy. Heart: Regular rate and rhythm without murmur. Lungs: Clear to auscultation. Extremities: There is amputeation of the left great toe at the IP joint. The wound is nearly completely healed with an area medial, about 1 cm long that appears to be still slightly moist. On the left lower extremity there is a chronic wound on the anterior jhaveri, about 6 mm in diameter with a dry base surrounded by some pink raised granulation tissue. Both feet are warm to the touch, capillary refillis good, pulses are faint. DIAGNOSTICS LABORATORY: AST, urine microalbumin, A1C, lipid panel and BMP ordered and pending. ASSESSMENT / PLAN #1 Type 2 diabetes mellitus, uncontrolled He will return in a fasting state for labs early next week. Discussed with the patient that I will likely be making adjustments to his regimen once I have those results available. #2 Peripheral arterial disease He follows with Vascular medicine at [facility]. #3 Hyperlipidemia When he returns for labs will check a fasting lipid panel and AST. In the interim he will continue with current dose of Atorvastatin 20 mg daily at bedtime. #4 Essential hypertension with chronic kidney disease Blood pressure is well controlled, continue with current medications. When he returns for labs BMP will be checked. He should remain well hydrated and avoid chronic NSAID use. #5 Chronic pain He follows with a pain clinic in [place]. Follow up The patient will contact the clinic with any new or worsening symptoms. This document serves as a record of services personally performed by Renee Lacy MD. It was created on their behalf by Marie Peterson, a trained health care / medical job titles. The creation of this record is based on the scribe's personal observations and the provider's statements to them. This document has been parul cked and approved by the attending provider. documented in this encounter Plan of Treatment Not on filedocumented as of this encounter Results AST (Aspartate Aminotransferase) (07/26/2017 8:55 AM CDT) [facility] Method Time Signature Aspartate 26 8 - 48 07/26/2017 [facility] Aminotransferase U/L 11:01 AM CDT [facility] [place] [facility] Specimen Anatomical Collection Method Collection Time Receive d Time (Source) Location / / Volume Laterality Blood (Blood, 07/26/2017 8:55 AM 07/27/19 18 Venous) CDT 10:44 AM CDT Renee Catalan M.D. LAB BLOOD ADD-ON Performing Organization Address [facility] Phon e Number [facility] [address] [place] [phone] LAB (ABNORMAL) Hemoglobin A1c (07/26/2017 8:55 AM CDT) athologist Signature Hemoglobin A1c, 9.1 (H) 4.2 - 5.6 07/26/2017 [facility] B % 11:19 AM CDT [facility] Comment: Hemoglobin A1c values greater than or eq ual to 6.5 percent are diagnostic for diabetes mellitus. ?? Diagnosis should be confirmed by repeat testing. ??In diabet ic patients, HbA1c goals should be [facility]. Specimen Anatomical Collection Method Collection Time Receive d Time (Source) Location / / Volume Laterality Blood (Blood, 07/26/2017 8:55 AM 07/27/19 18 Venous) CDT 10:44 AM CDT Renee Catalan M.D. LAB BLOOD ADD-ON Performing Organization Address [facility]/ZIP Code Phon e Number [facility] [address] [place] [phone] LAB (ABNORMAL) Lipid Panel (07/26/2017 8:55 AM CDT) P athologist Signature Cholesterol, 148 mg/dL 07/26/2017 [facility] Total 11:01 AM CDT [facility] Comment: ----REFERENCE VALUE---- Desirable: < 200 Borderline high: 200 - 239 High: > or = 240 Triglycerides 249 (H) mg/dL 07/26/2017 11:01 AM CDT [facility] [place] [facility] Comment: ----REFERENCE VALUE---- Normal: <150 Borderline high: 150-199 High: 200-499 Very high: > or =500 Cholesterol, HDL, S 40 >=40 mg/dL 07/26/2017 11:01 AM CDT [facility] [place] [facility] Calculated LDL 58 mg/dL 07/26/2017 11:01 AM CDT [facility] Comment: ----REFERENCE VALUE---- Desirable: <100 Above Desirable: 100-129 Borderline high: 130-159 High: 160-189 Very high: > or =190 Cholesterol, Non-HDL, 108 mg/dL 07/26/2017 11:01 A M CDT [facility] [place] B Comment: ----REFERENCE VALUE---- Desirable: <130 Above Desirable: 130-159 Borderline high: 160-189 High: 190-219 Very high: > or =220 Specimen Anatomical Collection Method Collection Time Receive d Time (Source) Location / / Volume Laterality Blood (Blood, 07/26/2017 8:55 AM 07/27/19 18 Venous) CDT 10:44 AM CDT Renee Catalan M.D. LAB BLOOD ADD-ON Performing Organization Address City/State/ZIP Code Phon e Number [facility] [address] [place] [address] LAB (ABNORMAL) BMP (Basic Metabolic Panel) (07/26/2017 8:55 AM CDT) Analysis Performed At Patho logist Time Signature Potassium, S 5.1 3.6 - 5.2 07/26/2017 [facility] mmol/L 11:01 AM [facility] Sodium, S 142 135 - 145 07/26/2017 [facility] mmol/L 11:01 AM [facility] Chloride, S 99 98 - 107 07/26/2017 [facility] mmol/L 11:01 AM [facility] Bicarbonate, S 30 (H) 22 - 29 07/26/2017 [facility] mmol/L 11:01 AM [facility] Anion Gap 13 7 - 15 07/26/2017 [facility] 11:01 AM [facility] BUN (Blood Urea 26 (H) 8 - 24 07/26/2017 [facility] Nitrogen), S mg/dL 11:01 AM [facility] Creatinine 1.99 (H) 0.74 - 07/26/2017 [facility] 1.35 mg/dL 11:01 AM [facility] eGFR 34 (L) >=60 07/26/2017 [facility] Non-Black/Afric mL/min/BSA 11:01 AM [facility] Comment: ----ADDITIONAL INFORMATION---- Estimated GFR calculated using the 2009 CKD_EPI creatinine equation. eGFR Black/ 40 (L) >=60 mL/min/BSA 07/26/2017 11:0 1 AM [facility] Comment: ----ADDITIONAL INFORMATION---- Estimated GFR calculated using the 2009 CKD_EPI creatinine equation. Calcium, Total, S 9.2 8.9 - 10.1 mg/dL 07/26/2017 11:[address] [facility] Glucose, S 135 70 - 140 mg/dL 07/26/2017 11:[address] [facility] Specimen Anatomical Collection Method Collection Time Receive d Time (Source) Location / / Volume Laterality Blood (Blood, 07/26/2017 8:55 AM 07/27/19 18 Venous) CDT 10:44 AM CDT Renee Catalan M.D. LAB BLOOD ADD-ON Performing Organization Address City/State/ZIP Code Phon e Number [facility] [address] [place] [phone] LAB (ABNORMAL) Microalbumin, Random, Urine (07/26/2017 8:52 AM CDT) [facility] gist Method Time Signature Microalbumin 81.2 mg/L 07/26/2017 [facility] 11:34 AM [facility] Creatinine 53 mg/dL 07/26/2017 [facility] 11:34 AM [facility] Albumin/Creatinin 153 (H) <17 mg/g 07/26/2017 [facility] e Ratio 11:34 AM [facility] Specimen Anatomical Collection Method Collection Time Receive d Time (Source) Location / / Volume Laterality Urine (Urine, 07/26/2017 8:52 AM 07/27/19 18 Clean Catch) CDT 10:44 AM CDT Renee Catalan M.D. LAB URINE ORDERABLES Performing Organization Address City/State/ZIP Code Phon e Number - [facility] [address] [place] [phone] LAB documented in this encounter Visit Diagnoses Diagnosis Hypertension And Chronic Kidney Disease Stage 1 To 4 - Primary Diabetes Mellitus Type 2 With Diabetic P olyneuropathy (HCC) Diabetes Mellitus Type 2 With Other Circ ulatory Complication Hyperglycemic (HCC) Hypertension Essential Primary Hyperlipidemia documented in this encounter Additional Health Concerns Assessment Noted Time PHQ-9 Depression Total Score: 7 07/22/2017 11:14 AM CS T documented as of this encounter
--- OUTSIDE RECORDS SUMMARY | 2022-03-16 12:28 | XMS_ITS | Encounter Summary ---
:1950 Author Organization [facility] Address [address] [place] [address] Care Team Providers Name Role Phone Unavailable Primary Care Provider Unavailable Encounter Details Date Type Department Care Team Description 08/31/2017 - 09/01/2017 Hospital Encounter HX RST [facility] 5E Social History Tobacco Use Types Packs/Day Years [...] week 03/25/2021 How often do you attend mandaeism or pentecostal services? 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 Pulse 71 09/01/2017 8:00 AM Value from artplus. CDT Temperature - - Respiratory Rate 16 09/01/2017 3:33 AM Value from [place] hartplus. CDT Oxygen Saturation - - Inhaled Oxygen - - Concentration Weight 76.8 kg (169 lb 5 09/01/2017 3:33 AM Value from Chart[facility]. oz) CDT Height - - Body Mass Index 24.79 08/31/2017 9:23 AM CDT documented in this encounter Medications [...] times a day with meals. [place]ancets [facility] [place] item 0 08/23/2014 9 covered by [...] Associated Comments Diagnosis GLUCOSE POCT, B Routine 09/01/2017 6:28 AM Result s for this CDT procedure are i n the results section. ELECTROLYTE (CHEM 4) Routine 09/01/2017 4:16 AM R esults for this PANEL, S/P CDT procedure are i n the results section. GLUCOSE POCT, B Routine 08/31/2017 9:28 PM Result s for this CDT procedure are i n the results section. GLUCOSE POCT, B Routine 08/31/2017 4:38 PM Result s for this CDT procedure are i n the results section. CBC WITH Routine 08/31/2017 12:58 Results for this DIFFERENTIAL, B PM CDT procedure ar e in the results section. POTASSIUM, S/P Routine 08/31/2017 12:58 Results f or this PM CDT procedure are i n the results section. CREATININE WITH EGFR, Routine 08/31/2017 12:58 Re sults for this S/P PM CDT procedure are i n the results section. GLUCOSE POCT, B Routine 08/31/2017 12:10 Results for this PM CDT procedure are i n the results section. GLUCOSE POCT, B Routine 08/31/2017 10:40 Results for this AM CDT procedure are i n the results section. CARDIAC BIOMARKER Routine 08/31/2017 10:16 Result s for this PANEL, S AM CDT procedure are i n the results section. CREATININE WITH EGFR, Routine 08/31/2017 10:16 Re sults for this S/P AM CDT procedure are i n the results section. ECG Routine 08/31/2017 10:15 Results for this AM CDT procedure are i n the results section. V&IRAD VASCULAR & Routine 08/31/2017 9:28 AM Resu lts for this INTERVENTION CDT procedure are i n the results section. ACT, POCT, B Routine 08/31/2017 8:44 AM Results f or this CDT procedure are i n the results section. documented in this encounter Results Glucose, POCT (09/01/2017 6:28 AM CDT) [facility] gist Method Time Signature Glucose, 115 70 - 140 [facility] POCT, B MG/DL LABORATORIES [facility] Site Capillary [facility] Last Intake > 4 hours [facility] Specimen Anatomical Collection Method Collection Time Receive d Time (Source) Location / / Volume Laterality 09/01/2017 6:28 AM 8 6:28 CDT AM CDT Historical Provider LAB POCT ORDERABLES-MANUAL Performing Organization Address City/State/ZIP Code Phon e Number [facility] LABORATORIES - [address] [phone] [facility] (ABNORMAL) Electrolyte (Chem 4) Panel (09/01/2017 4:16 AM CDT) [facility] Method Time Signature Chloride, S 101 98 - 107 [facility] MMOL/L LABORATORIES - [facility] HX Bicarbonate, 26 22 - 29 [facility] P/S MMOL/L LABORATORIES - [facility] Sodium, S 141 135 - 145 [facility] MMOL/L LABORATORIES - [facility] Potassium, S 4.8 3.6 - 5.2 [facility] MMOL/L LABORATORIES - [facility] Creatinine 1.5 (H) 0.8 - 1.3 [facility] MG/DL LABORATORIES - [facility] eGFR 47 (L) >60 [facility] Non-Black/Afric ML/MIN/BS LABORATORIES - [facility] [place], [facility] eGFR 57 (L) >60 [facility] Black/ ML/MIN/BS [facility] - [facility] BUN (Blood Urea 19 8 - 24 [facility] Nitrogen), S MG/DL [facility] Anion Gap 14 7 - 15 [facility] Glucose, S 143 (H) 70 - 140 [facility] MG/DL [facility] Creatinine 1.5 (H) 0.8 - 1.3 [facility] MG/DL [facility] - [facility] eGFR 47 (L) >60 [facility] Non-Black/Afric ML/MIN/BS [facility] - [facility] [place], [facility] eGFR-Black/Afri 57 (L) >60 [facility] can [place] Citizen ML/MIN/BS [facility] - [facility] Specimen Anatomical Collection Method Collection Time Receive d Time (Source) Location / / Volume Laterality 09/01/2017 4:16 AM 8 4:16 CDT AM CDT Thais Saldivar APRN C.N.P., M.S. LAB B LOOD ADD-ON Performing Organization Address City/State/ZIP Code Phon e Number [facility] LABORATORIES - [address] [phone] [facility] (ABNORMAL) Glucose, POCT (08/31/2017 9:28 PM CDT) [facility] Method Time Signature Glucose, 272 (H) 70 - 140 [facility] POCT, B MG/DL LABORATORIES - [facility] Site Capillary [facility] Last Intake 3-4 hours [facility] Specimen Anatomical Collection Method Collection Time Receive d Time (Source) Location / / Volume Laterality 08/31/2017 9:28 PM 8 9:28 CDT PM CDT Historical Provider LAB POCT ORDERABLES-MANUAL Performing Organization Address [facility] Phon e Number [facility] LABORATORIES - [address] [place], [place] [address] [facility] (ABNORMAL) Glucose, POCT (08/31/2017 4:38 PM CDT) [facility] Method Time Signature Glucose, 180 (H) 70 - 140 [facility] POCT, B MG/DL LABORATORIES - [facility] Site Capillary [facility] Last Intake 2-3 hours [facility] Specimen Anatomical Collection Method Collection Time Receive d Time (Source) Location / / Volume Laterality 08/31/2017 4:38 PM 8 4:38 CDT PM CDT Historical Provider LAB POCT ORDERABLES-MANUAL Performing Organization Address City/[facility] Code Phon e Number [facility] LABORATORIES - [address] [phone] [facility] (ABNORMAL) Creatinine with Estimated GFR (08/31/2017 12:58 PM CDT) [facility] Method Time Signature Creatinine 1.6 (H) 0.8 - 1.3 [facility] MG/DL LABORATORIES - [facility] eGFR 44 (L) >60 [facility] Non-Black/Afric ML/MIN/BS LABORATORIES - [facility] [place], operated [facility] eGFR 53 (L) >60 [facility] Black/ ML/MIN/BS LABORATORIES [facility] Creatinine 1.6 (H) 0.8 - 1.3 [facility] MG/DL LABORATORIES - [facility] eGFR 44 (L) >60 [facility] Non-Black/Afric ML/MIN/BS LABORATORIES - [facility] [place], [facility] eGFR-Black/Afri 53 (L) >60 [facility] can [place] Citizen ML/MIN/BS LABORATORIES [facility] Specimen Anatomical Collection Method Collection Time Receive d Time (Source) Location / / Volume Laterality 08/31/2017 12:58 08/31/2017 PM CDT 12:58 PM CDT Dick Robbins M.D. LAB BLOOD ADD-ON Performing Organization Address City/State/ZIP Code Phon e Number [facility] LABORATORIES - [address] [place], [place] [address] [facility] (ABNORMAL) CBC with Differential (08/31/2017 12:58 PM CDT) Patholo gist Method Time Signature Erythrocytes 3.71 (L) 4.32 - [facility] 5.72 LABORATORIES - X10(12)/L [facility] MCV 90.0 81.2 - [facility] 95.1 FL LABORATORIES - [facility] Lymphocytes 1.96 0.90 - [facility] 2.90 LABORATORIES - X10(9)/L [facility] Monocytes 1.34 (H) 0.30 - [facility] 0.90 LABORATORIES - X10(9)/L [facility] Hemoglobin 11.3 (L) 13.5 - [facility] 17.5 G/DL [facility] Hematocrit 33.4 (L) 38.8 - [facility] 50.0 % [facility] RBC Distrib 13.7 11.8 - [facility] Width 15.6 % [facility] Platelet Count 231 150 - 450 [facility] X10(9)/L LABORATORIES [facility] Leukocytes 11.1 (H) 3.5 - [facility] 10.5 LABORATORIES - X10(9)/L [facility] Neutrophils 7.38 (H) 1.70 - [facility] 7.00 LABORATORIES - X10(9)/L [facility] Eosinophils 0.42 0.05 - [facility] 0.50 LABORATORIES - X10(9)/L [facility] Basophils 0.04 0.00 - [facility] 0.30 LABORATORIES - X10(9)/L [facility] Specimen Anatomical Collection Method Collection Time Receive d Time (Source) Location / / Volume Laterality 08/31/2017 12:58 08/31/2017 PM CDT 12:58 PM CDT Dick Robbins M.D. LAB BLOOD ADD-ON Performing Organization Address City/State/[facility] Code Phon e Number [facility] LABORATORIES - [address] [phone] [facility] Potassium (08/31/2017 12:58 PM CDT) P athologist Signature Potassium, S 4.7 3.6 - 5.2 [facility] MMOL/L LABORATORIES [facility] Specimen Anatomical Collection Method Collection Time Receive d Time (Source) Location / / Volume Laterality 08/31/2017 12:58 08/31/2017 PM CDT 12:58 PM CDT Dick Robbins M.D. LAB BLOOD ADD-ON Performing Organization Address City/[facility]/ZIP Code Phon e Number [facility] LABORATORIES - [address] [place], [place] [address] [facility] Glucose, POCT (08/31/2017 12:10 PM CDT) [facility] gist Method Time Signature Last Intake NPO [facility] Glucose, 125 70 - 140 [facility] POCT, B MG/DL [facility] Site Capillary [facility] Specimen Anatomical Collection Method Collection Time Receive d Time (Source) Location / / Volume Laterality 08/31/2017 12:10 08/31/2017 PM CDT 12:10 PM CDT Historical Provider LAB POCT ORDERABLES-MANUAL Performing Organization Address City/[facility]/ZIP Code Phon e Number [facility] LABORATORIES - [address] [phone] [facility] Glucose, POCT (08/31/2017 10:40 AM CDT) [facility] Method Time Signature Glucose, 117 70 - 140 [facility] POCT, B MG/DL [facility] Site Capillary [facility] Specimen Anatomical Collection Method Collection Time Receive d Time (Source) Location / / Volume Laterality 08/31/2017 10:40 08/31/2017 AM CDT 10:40 AM CDT Historical Provider LAB POCT ORDERABLES-MANUAL Performing Organization Address City/[facility] Phon e Number [facility] - [address] [phone] [facility] Cardiac Biomarker Panel (08/31/2017 10:16 AM CDT) [facility] gist Method Time Signature Troponin T, 15 <=15 NG/L [facility] Baseline, 5th LABORATORIES - gen [facility] Troponin T, 2 14 <=15 NG/L [facility] hr, 5th gen LABORATORIES - [facility] Troponin T, 6 . [facility] hr, 5th gen LABORATORIES - [facility] 2H Delta -1 NG/L [facility] - [facility] 2H Delta No Change [facility] Specimen Anatomical Collection Method Collection Time Receive d Time (Source) Location / / Volume Laterality 08/31/2017 10:16 08/31/2017 AM CDT 10:16 AM CDT Dick Robbins M.D. LAB BLOOD ADD-ON Performing Organization Address City/State/ZIP Code Phon e Number [facility] LABORATORIES - [address] [phone] [facility] (ABNORMAL) Creatinine with Estimated GFR (08/31/2017 10:16 AM CDT) [facility] gist Method Time Signature eGFR-Black/Afri 53 (L) >60 [facility] can [place] Citizen ML/MIN/BS LABORATORIES - A [facility] Creatinine 1.6 (H) 0.8 - 1.3 [facility] MG/DL LABORATORIES - [facility] eGFR 44 (L) >60 [facility] Non-Black/Afric ML/MIN/BS LABORATORIES - an [place] Citizen A [facility] Creatinine 1.6 (H) 0.8 - 1.3 [facility] MG/DL LABORATORIES - [facility] Specimen Anatomical Collection Method Collection Time Receive d Time (Source) Location / / Volume Laterality 08/31/2017 10:16 08/31/2017 AM CDT 10:16 AM CDT Dick Robbins M.D. LAB BLOOD ADD-ON Performing Organization Address City/State/ZIP Code Phon e Number [facility] LABORATORIES - [address] [phone] [facility] ECG 12 Lead (08/31/2017 10:15 AM CDT) Specimen (Source) Anatomical Collection Method Collection Time Re ceived Time Location / / Volume Laterality 08/31/2017 10:15 AM CDT Narrative HX MIGUE CONVERSION - 08/31/2017 10: 39 AM CDT [id number] 10:15 VENTRICULAR RATE 66 Normal sinus rhythm Right bundle branch block When compared with ECG of 04-APR-2017 14 :34, QT has shortened [id number]^JAYDON BONILLA^MK Procedure Note Mk Willard M.D. - 09/08/2017Formatt ing of this note might be different from the original. [id number] 10:15 VENTRICULAR RATE 66 Normal sinus rhythm Right bundle branch block When compared with ECG of 04-APR-2017 14 :34, QT has shortened [id number]^JAYDON BONILLA^MK Kemar Rodrigues. ECG ORDERABLES Performing Organization Address City/State/ZIP Code Phon e Number HX MGIUE CONVERSION V&IRAD Vascular & Intervention (08/31/2017 9:28 AM CDT) Anatomical Region Laterality Modality Whole body N/A X-Ray Angiography Specimen (Source) Anatomical Collection Method Collection Time Re ceived Time Location / / Volume Laterality 08/31/2017 9:28 AM CDT Narrative 08/31/2017 4:24 PM CDT 31-Aug-2017 09:28:00 ??Exam: V&IRAD Vascular & Intervention Indications: Endovascular Right iliac an d/or femoral and/or popliteal and /or tibial artery angioplasty/stent ORIGINAL REPORT - 31-Aug-2017 16:24:00 V&IRAD Vascular & Intervention: Please see dictated Operative Note of sa me date in [facility] LastWord. Electronically signed by: ?? no valid signature 31-Aug-2017 16:24 Procedure Note Kemar Velásquez M.B.B.S. - 09/05/2017Forma tting of this note might be different from the original. 31-Aug-2017 09:28:00 Exam: V&IRAD Vascul ar & Intervention Indications: Endovascular Right iliac an d/or femoral and/or popliteal and /or tibial artery angioplasty/stent ORIGINAL REPORT - 31-Aug-2017 16:24:00 V&IRAD Vascular & Intervention: Please see dictated Operative Note of sa me date in [facility] LastWord. Electronically signed by: no valid signature 31-Aug-2017 16:24 Kemar Reyes IMG IR PROCEDURES (ABNORMAL) ACT (Activated Clotting Time), POCT (08/31/2017 8:44 AM CDT) [facility] gist Method Time Signature Activated 264 (H) 84 - 139 [facility] Clotting Time, SEC LABORATORIES - POCT [facility] Specimen Anatomical Collection Method Collection Time Receive d Time (Source) Location / / Volume Laterality 08/31/2017 8:44 AM 8 8:44 CDT AM CDT Historical Provider LAB POCT ORDERABLES - DEVICE Performing Organization Address City/State/ZIP Code Phon e Number [facility] LABORATORIES - [address] [place], [place] [address] [facility] documented in this encounter Visit Diagnoses Not on filedocumented in this encounter Additional Health Concerns Assessment Noted Time PHQ-9 Depression Total Score: 7 07/22/2017 11:14 AM CS T documented as of this encounter
--- OUTSIDE RECORDS SUMMARY | 2022-03-16 12:28 | XMS_ITS | Encounter Summary ---
:1950 Author Organization [facility] Address [address] [place] [address] Care Team Providers Name Role Phone Unavailable Primary Care Provider Unavailable Reason for Visit Reason Comments Communication Encounter Details Date Type Department Care Team Description 07/30/2017 Clinical Communication Department of [facility] Medicine, [place] Renee syed, [place], in [place] [address] [facility] [place] [address] [phone] Social History Tobacco Use Types Packs/Day Years [...] How often do you attend lutheran or latter day services? 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 - 08/01/2017 10:09 AM CDT Verified with [employer] that his is taking his short acting insulin at the correct time and dose and he will keep track of his levels and call back in a week Telephone Encounter - Renee Catalan M.D. - 07/30/2017 9:17 PM CDT Please call patient and confirm that he is not taking short-acting insulin. If he is not he needs tostart and I sent a prescription for Humalog insulin. He is to take 10 units with meals. The insulin should be taken immediately prior to or just as the meal starts. He should call in 1 week with blood sugar results. documented in this encounter Plan of Treatment Not on filedocumented as of this encounter Visit Diagnoses Not on filedocumented in this encounter Additional Health Concerns Assessment Noted Time PHQ-9 Depression Total Score: 7 07/22/2017 11:14 AM CS T documented as of this encounter
--- OUTSIDE RECORDS SUMMARY | 2022-03-16 12:28 | XMS_ITS | Encounter Summary ---
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 Hyperlipidemia [place] [address] [place], [place] [phone] Social History Tobacco Use Types Packs/Day Years [...] How often do you attend sikhism or zoroastrian services? 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 lancets [facility] [place] item 0 08/23/2014 9 covered by [...] Diagnosis Comme nts LIPID PANEL, S Routine 07/26/2017 8:55 Hyperlipidemia Results for this AM CDT procedure are i n the results section. ASPARTATE Routine 07/26/2017 8:55 Hyperlipidemia Results fo r this AMINOTRANSFERASE (AST), AM CDT proc edure are in S/P the results section. HEMOGLOBIN A1C, B Routine 07/26/2017 8:55 Diabetes Mellitus Re sults for this AM CDT Type 2 With Diabetic procedu re are in Polyneuropathy (HCC) the res ults section. BASIC METABOLIC PANEL, Routine 07/26/2017 8:55 Diabetes Mellit us Results for this S/P AM CDT Type 2 With Diabetic procedu re are in Polyneuropathy ( HCC) the results Hypertension And section. Chronic Kidney Disease Stage 1 To 4 documented in this encounter Results AST (Aspartate Aminotransferase) (07/26/2017 8:55 AM CDT) [facility] Method Time Signature Aspartate 26 8 - 48 07/26/2017 [facility] Aminotransferase U/L 11:01 AM CDT [facility] (AST)[facility] LAB Specimen Anatomical Collection Method Collection Time Receive d Time (Source) Location / / Volume Laterality Blood (Blood, 07/26/2017 8:55 AM 07/27/19 18 Venous) CDT 10:44 AM CDT Renee Catalan M.D. LAB BLOOD ADD-ON Performing Organization Address City/[facility] Phon e Number [facility] [address], [place] [address] LAB (ABNORMAL) Hemoglobin A1c (07/26/2017 8:55 AM CDT) P athologist Signature Hemoglobin A1c, 9.1 (H) 4.2 - 5.6 07/26/2017 [facility] B % 11:19 AM CDT [email or web address] Comment: Hemoglobin A1c values greater than or eq ual to 6.5 percent are diagnostic for diabetes mellitus. ?? Diagnosis should be confirmed by repeat testing. ??In diabet ic patients, HbA1c goals should be discussed with [facility] e provider. Specimen Anatomical Collection Method Collection Time Receive d Time (Source) Location / / Volume Laterality Blood (Blood, 07/26/2017 8:55 AM 07/27/19 18 Venous) CDT 10:44 AM CDT Renee Catalan M.D. LAB BLOOD ADD-ON Performing Organization Address City/[facility]/ZIP Code Phon e Number [facility] [place] [address], [place] [address] LAB (ABNORMAL) Lipid Panel (07/26/2017 8:55 AM CDT) P athologist Signature Cholesterol, 148 mg/dL 07/26/2017 [facility] Total 11:01 AM CDT [facility] Comment: ----REFERENCE VALUE---- Desirable: < 200 Borderline high: 200 - 239 High: > or = 240 Triglycerides 249 (H) mg/dL 07/26/2017 11:[address] [facility] LAB Comment: ----REFERENCE VALUE---- Normal: <150 Borderline high: 150-199 High: 200-499 Very high: > or =500 Cholesterol, HDL, S 40 >=40 mg/dL 07/26/2017 11:01 AM CDT [facility] Calculated LDL 58 mg/dL 07/26/2017 11:01 AM CDT [facility] [place] [facility] Comment: ----REFERENCE VALUE---- Desirable: <100 Above Desirable: 100-129 Borderline high: 130-159 High: 160-189 Very high: > or =190 Cholesterol, Non-HDL, 108 mg/dL 07/26/2017 11:[address] [facility] [place] B Comment: ----REFERENCE VALUE---- Desirable: [...] City/State/ZIP Code Phon e Number [facility] [address] [place] [id number] LAB (ABNORMAL) BMP (Basic Metabolic Panel) (07/26/2017 8:55 AM CDT) Analysis Performed At Patho logist Time Signature Potassium, S 5.1 3.6 - 5.2 07/26/2017 [facility] mmol/L 11:01 AM T [facility] Sodium, S 142 135 - 145 07/26/2017 [facility] mmol/L 11:01 AM [facility] Chloride, S 99 98 - 107 07/26/2017 [facility] mmol/L 11:01 AM [facility] LAB Bicarbonate, S 30 (H) 22 - 29 07/26/2017 [facility] mmol/L 11:01 AM [facility] Anion Gap 13 7 - 15 07/26/2017 [facility] 11:01 AM [facility] BUN (Blood Urea 26 (H) 8 - 24 07/26/2017 [facility] Nitrogen), S mg/dL 11:01 AM T [facility] [place] [facility] Creatinine 1.99 (H) 0.74 - 07/26/2017 [facility] 1.35 mg/dL 11:01 AM [facility] eGFR 34 (L) >=60 07/26/2017 [facility] Non-Black/Afric mL/min/BSA 11:01 AM [facility] ID [facility] Comment: ----ADDITIONAL INFORMATION---- Estimated GFR calculated using the 2009 CKD_EPI creatinine equation. eGFR Black/ 40 (L) >=60 mL/min/BSA 07/26/2017 11:0 1 AM [facility] [place] LAB Comment: ----ADDITIONAL INFORMATION---- Estimated GFR calculated using the 2009 CKD_EPI creatinine equation. Calcium, Total, S 9.2 8.9 - 10.1 mg/dL 07/26/2017 11:0 1 AM [facility] Glucose, S 135 70 - 140 mg/dL 07/26/2017 11:01 AM [facility] Specimen Anatomical Collection Method Collection Time Receive d Time (Source) Location / / Volume Laterality Blood (Blood, 07/26/2017 8:55 AM 07/27/19 18 Venous) CDT 10:44 AM CDT Renee Catalan M.D. LAB BLOOD ADD-ON Performing Organization Address City/State/ZIP Code Phon e Number [facility] [address] [place] [address] LAB documented in this encounter Visit Diagnoses Diagnosis Diabetes Mellitus Type 2 With Diabetic P olyneuropathy (HCC) Hypertension And Chronic Kidney Disease Stage 1 To 4 Hyperlipidemia documented in this encounter Additional Health Concerns Assessment Noted Time PHQ-9 Depression Total Score: 7 07/22/2017 11:14 AM CS T documented as of this encounter
--- OUTSIDE RECORDS SUMMARY | 2022-03-16 12:28 | XMS_ITS | Encounter Summary ---
:1950 Author Organization [facility] Address [address] [place] [address] Care Team Providers Name Role Phone Unavailable Primary Care Provider Unavailable Reason for Visit Reason Comments Follow-up post vasular surgical isabelle mcfarlane at [facility] Encounter Details Date Type Department Care Team Description 09/06/2017 Office Visit Department of Family Fruehtatianna-Lane Hype rlipidemia (Primary Dx); Medicine, Renee Snider, Edwar s Mellitus Type 2 (HCC); Clinic, in [place] Pain Wrist Left; [place] [address] Peripheral Arterial Disease (HCC) [address] [facility] [place] [phone] Social History Tobacco Use Types Packs/Day [...] How often do you attend yarsanism or baptism services? 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 - 09/06/2017 2:15 PM CDT CHIEF COMPLAINT/ REASON FOR VISIT Hospital followup. HISTORY OF PRESENT ILLNESS Onesimo Walton is a 67 y.o. male who presents to the clinic today for hospital followup. He was hospitalized 08/31-09/01/2017 at [facility] in [place] after undergoing right superficial femoral artery stent secondary to atherosclerosis. Since having surgery Onesimo states that he feels so much better. He is able to go outside and walk around when he had not been able to do that before. He wonders if he is having a gout flare up because he is having pain at his right MTP joint. He brought in a list of blood sugar readings over range from low 300s with a reading as low as 37 30units of lantus at bedtime Over the last year his left wrist has been bothering with recent worsening. The patient denies any additional questions or [...] day. ) 15 mL 3 ??? lancets [facility] Dispense item covered by pt ins. 250.02 IDDM type II Tests 4 times/day. Reason: High A1c. History labile sugars, hypertension, poor control ??? LANTUS SOLOSTAR U-100 INSULIN 100 unit/mL (3 mL) injection INJECT 0.3ML (30UNITS) SUBCUTANEOUSLYAT BEDTIME 3 ??? lisinopril-hydroCHLOROthiazide (for_PRINZIDE,ZESTORETIC) 20-12.5 mg per [...] off over the next few days. ??? pantoprazole (for_PROTONIX) 40 mg EC tablet Take 40 mg by mouth once daily. ??? pen needle, diabetic 31 gauge x /16 needle Inject 1 each under the skin [...] Rash itchy ??? Pregabalin Anaphylaxis swell ??? Cmstzvj-Awp-Zrb Reductase Inhibitors Myalgia PAST MEDICAL / SURGICAL [...] popliteal and /or tibial artery angioplasty/stent Notes: [id number] ??? FEMORAL ENDARTERECTOMY, PATCH ANGIOPLASTY/INTERPOSITION GRAFT WITH/WITHOUT PROFUNDOPLASTY Left 04/04/2017 Femoral endarterectomy, patch angioplasty/interposition graft with/without profundoplasty Notes: [id number] ??? NM SESTAMIBI W/DOBUTAMINE 1 DA postive for myocardial ischemia with normal LVEF ??? TONSILLECTOMY as a child PREVENTIVE SERVICES Social History Substance Use Topics ??? Smoking status: Former Smoker ??? Smokeless tobacco: Never Used ??? Alcohol use No VITAL SIGNS Vitals: 09/06/17 1357 BP: 112/68 Pulse: 64 Temp: 36.2 ??C Resp: 16 Height: 173 cm Weight: 79.3 kg TempSrc: Temporal Body mass index is 26.5 kg/m??. PHYSICAL EXAMINATION General: Patient is alert and oriented times three, in no acute distress, good hygiene and is dressed appropriately. Heart: Regular rate and rhythm without murmur. Lungs: Clear to auscultation. Abdomen: Soft and nontender with no masses. Extremities: Brisk capillary refill of bilateral feet. Feet are warm. Dorsalis pedis and posterior tibial pulses palpable but diminished on right. Good dorsalis pedis and posterior tibial pulses on theleft. There is some soft tissue swelling on the dorsum of the wrist, radial aspect. DIAGNOSTICS RADIOLOGY: Left wrist x-ray results: pending. ASSESSMENT / PLAN #1 Peripheral arterial disease s/p right superficial femoral artery stent, 08/31/2017 and left femoral artery endarterectomy with patch angioplasty; left endovascular superficial femoral artery stent x 2, 04/04/2017 Continue with Aspirin and Plavix. Followup with Vascular medicine at [facility] as recommended. #2 Type II diabetes mellitus He will continue with his current regimen at this time. We will recheck A1C in November. If A1C continues to be high we will need to make adjustments to his regimen. #3 Left wrist pain X-ray is pending. Further recommendations pending results. Follow up The patient will contact the clinic with any new or worsening symptoms. This document serves as a record of services personally performed by Renee Lacy MD. It was created on their behalf by Marie Peterson, a trained diagnostic medical sonographer. The creation of this record is based on the scribe's personal observations and the provider's statements to them. This document has been parul cked and approved by the attending provider. documented in this encounter Plan of Treatment Not on filedocumented as of this encounter Results (ABNORMAL) Hemoglobin A1c (12/06/2017 7:39 AM CDT) P athologist Signature Hemoglobin A1c, 7.8 (H) 4.2 - 5.6 12/06/2017 [facility] B % 12:10 PM CDT [facility] LAB Comment: Hemoglobin A1c values greater [...] Address City/State/ZIP Code Phon e Number [facility] [address] [place] [address] LAB DX Wrist Left 2 Views (09/06/2017 3:16 [...] documented in this encounter Visit Diagnoses Diagnosis Hyperlipidemia - Primary Diabetes Mellitus Type 2 (HCC) Pain Wrist Left Peripheral Arterial Disease (HCC) Pain Wrist Left documented in this encounter Additional Health Concerns Assessment Noted Time PHQ-9 Depression Total Score: 7 07/22/2017 11:14 AM CS T documented as of this encounter
--- OUTSIDE RECORDS SUMMARY | 2022-03-16 12:29 | XMS_ITS | Encounter Summary ---
:1950 Author Organization [facility] Address [address] [place] [address] Care Team Providers Name Role Phone Renee Catalan M.D. Primary Care Provider Reason for Visit Reason Onset Date Comments hospital discharge phone call 04/06/2017 Encounter Details Date Type Department Care Team Description 04/06/2017 Clinical Communication Department of [facility] discharge Family Medicine, Mayda Barrios R.N. phone [facility], in [address] [place] [phone] Social History Tobacco Use Types Packs/Day Years Used Date Smoking Tobacco: Every Day Alcohol Habits Answer Date Recorded How often [...] How often do you attend mandaeism or mormonism services? 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 Patient confirms that the condition for which he was admitted has improved. Home management assessment post discharge: Patient states he has no questions or concerns. Actions taken: home care instructions reinforced or provided Infection related to a resistant organism: no Surgical/Procedural Follow-up Medication Status Medication status assessment: is taking new medications as prescribed Medication management: Patient states medication is self managed. MTM Referral warranted: Patient's understanding of medication's side effects: Patient recalls and understands all side effects and reactions relating to new medication(s). Medications concerns: none Is patient taking any of the following: Controlled substances: yes Taking as instructed: yes Experiencing side effects: no Antibiotics: yes Labs scheduled: no Taking as instructed:yes Experiencing side effects: no Diabetic medications: yes Type: insulin Home glucose monitoring: yes; method: stick stick, 04-06-17 - over 300 but was after breakfast, last completed: 04-06-17, result over 300 after breakfast Difficulties managing diabetes since discharge: yes just today but will monitor blood sugar and if continues to be high will seek appt sooner or go to ED or urgent care. Anticoagulants: no Type: takes 325mg aspirin and 75mg plavix Taking as instructed: yes Signs/symptoms of bleeding or clotting: no Home INR monitoring: n/a Medication management provider: n/a INR: date of last INR , last value , and next scheduled date Home Care/Equipment Home care ordered: no Activities of Daily Living Has activities of daily living changed since hospitalization: no Ambulation Has ambulation changed since hospitalization: yes - actually been a little easier to get around Difficulty ambulating: yes always has had issues getting around but has a walker and a scooter Follow-Up Appointment Follow-up appointment scheduled? yes Date of appointment: 04-11-17 Does patient plan to go to the appointment?: yes Concerns about getting to the appointment: issues getting to your appointment: none General Care and Feedback Actions: patient is doing ok. No pressing questions or concerns. Discussed signs and symptoms which would warrant calling provider and or 911. Discussed all post op instructions. Phone number to our clinic provided - has [facility] in [place] numbers.. Blood sugar is hosp were in the 200's and today over 300 after breakfast. He will monitor and if they continue to be high will seek provider care. Pulse detected with doppler. Swelling is better. Warmth in foot. No signs of infection. Has a pre op scheduled with Irma on 04-18 for possible amputation of great toe on 04-29-17. Post-Hospital Assessment: Areas for hospital feedback: DEVELOPER documented in this encounter Plan of Treatment Not on filedocumented as of this encounter Visit Diagnoses Not on filedocumented in this encounter Additional Health Concerns Assessment Noted Time PHQ-9 Depression Total Score: 6 12/22/2016 10:26 AM CD T documented as of this encounter Care Teams Parimutuel Ticket Checker Relationship Specialty Start Date End Date Renee Catalan M.D. PCP - General Family Medicine 04/06/17 04/06/17 [address], [place] [phone] documented as of this encounter
--- OUTSIDE RECORDS SUMMARY | 2022-03-16 12:29 | XMS_ITS | Encounter Summary ---
:1950 Author Organization [facility] Address [address] [place] [address] Care Team Providers Name Role Phone Renee Catalan M.D. Primary Care Provider [phone] Encounter Details Date Type Department Care Team Description 05/18/2017 Telemedicine Department of Vascular Surgery Social History [...] How often do you attend jainism or evangelical services? 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 documented in this encounter Results VASCULAR SURGERY IMAGE EXAM (05/18/2017 2:29 PM INFORMATION TECHNOLOGY ADMINISTRATOR) Specimen (Source) Anatomical Collection Method Collection Time Re ceived Time Location / / Volume Laterality 05/18/2017 2:27 PM INFORMATION TECHNOLOGY ADMINISTRATOR Narrative [facility] - 05/18/2017 2:29 PM INFORMATION TECHNOLOGY ADMINISTRATOR This order has been created and auto-finalized to support the import of images acquired without order. The clini ammy documentation to support these images can be found on the encounter dioni t produced images. Provider Not In System IMG NON RAD IMAGING PROCEDUR ES Performing Organization Address City/State/ZIP Code Phon e Number IIDE [facility] NA documented in this encounter Visit Diagnoses Not on filedocumented in this encounter Additional Health Concerns Assessment Noted Time PHQ-9 Depression Total Score: 6 12/22/2016 10:26 AM CD T documented as of this encounter Care Teams Beef Pusher Relationship Specialty Start Date End Date Renee Catalan M.D. PCP - General Family Medicine 04/11/17 07/18/[address] [phone] documented as of this encounter
--- OUTSIDE RECORDS SUMMARY | 2022-03-16 12:29 | XMS_ITS | Encounter Summary ---
:1950 Author Organization [facility] Address [address] [place] [address] Care Team Providers Name Role Phone Renee Catalan M.D. Primary Care Provider [phone] Encounter Details Date Type Department Care Team Description 04/19/2017 Telemedicine Department of Vascular Social History Tobacco [...] How often do you attend yarsani or taoist services? 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 documented in this encounter Results VASCULAR IMAGE EXAM (04/19/2017 3:25 PM LANDSCAPE ARCHITECT) Specimen (Source) Anatomical Collection Method Collection Time Re ceived Time Location / / Volume Laterality 04/19/2017 3:23 PM LANDSCAPE ARCHITECT Narrative [facility] - 04/19/2017 3:25 PM LANDSCAPE ARCHITECT This order has been created and auto-finalized [...] documented as of this encounter Care Teams Technical Intern Relationship Specialty Start Date End Date Renee Catalan M.D. PCP - General Family Medicine 04/11/17 07/18/[address] [phone] documented as of this encounter
--- OUTSIDE RECORDS SUMMARY | 2022-03-16 12:29 | XMS_ITS | Encounter Summary ---
:1950 Author Organization [facility] Address [address] [place] [address] Care Team Providers Name Role Phone Renee Catalan M.D. Primary Care Provider [phone] Encounter Details Date Type Department Care Team Description 05/18/2017 Telemedicine Department of Vascular Social History Tobacco [...] How often do you attend advent or nondenominational services? 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 documented in this encounter Results VASCULAR IMAGE EXAM (05/18/2017 7:45 AM FOUNDER & CEO) Specimen (Source) Anatomical Collection Method Collection Time Re ceived Time Location / / Volume Laterality 05/18/2017 7:43 AM FOUNDER & CEO Narrative [facility] - 05/18/2017 8:23 AM FOUNDER & CEO This order has been created and auto-finalized to support the import of images acquired without order. The clini ammy documentation to support these images can be found on the encounter dioni t produced images. Provider Not In System IMG NON RAD IMAGING PROCEDUR ES Performing Organization Address City/State/ZIP Code Phon e Number [facility]IME [facility] NA documented in this encounter Visit Diagnoses Not on filedocumented in this encounter Additional Health Concerns Assessment Noted Time PHQ-9 Depression Total Score: 6 12/22/2016 10:26 AM CD T documented as of this encounter Care Teams Hand Paster Relationship Specialty Start Date End Date Renee Catalan M.D. PCP - General Family Medicine 04/11/17 07/18/[address] [phone] documented as of this encounter
--- OUTSIDE RECORDS SUMMARY | 2022-03-16 12:29 | XMS_ITS | Encounter Summary ---
:1950 Author Organization [facility] Address [address] [place] [address] Care Team Providers Name Role Phone Renee Catalan M.D. Primary Care Provider [phone] Encounter Details Date Type Department Care Team [...] How often do you attend mosque or sikhism services? 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 documented in this encounter Results VASCULAR IMAGE EXAM (04/19/2017 3:26 PM ELECTRONICS SYSTEM MECHANIC) Specimen (Source) Anatomical Collection Method Collection Time Re ceived Time Location / / Volume Laterality 04/19/2017 3:24 PM ELECTRONICS SYSTEM MECHANIC Narrative IIMS - 04/19/2017 3:26 PM ELECTRONICS SYSTEM MECHANIC This order has been created and auto-finalized [...] documented as of this encounter Care Teams Noodle Catalyst Maker Relationship Specialty Start Date End Date Renee Catalan M.D. PCP - General Family Medicine 04/11/17 07/18/[address] [phone] documented as of this encounter
--- OUTSIDE RECORDS SUMMARY | 2022-03-16 12:29 | XMS_ITS | Encounter Summary ---
:1950 Author Organization [facility] Address [address] [place] [address] Care Team Providers Name Role Phone Renee Catalan M.D. Primary Care Provider [phone] Encounter Details Date Type Department Care Team Description 03/24/2017 Abstract Department of Family Medicine, Provider, Historical [facility], in [place], [place] [address] [facility] [place], [place] [id number] Social History Tobacco Use Types Packs/Day [...] How often do you attend nondenominational or mosque services? 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 PCP - General Family Medicine 04/11/17 07/18/[address] [address] documented as of this encounter
--- OUTSIDE RECORDS SUMMARY | 2022-03-16 12:29 | XMS_ITS | Encounter Summary ---
:1950 [facility] Address [address] [place] [address] Care Team Providers Name Role Phone Irma Zacarias APRN C.N.P. Primary Care Provider [phone] Encounter Details Date Type Department Care Team Description 04/01/2017 Hospital Encounter HX NO MAPPING Social History [...] How often do you attend amish or episcopalian services? 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 omeprazole (PriLOSEC) 40 Take 40 mg by mouth [address] capsule every evening. ACCU-CHEK XIAO PLUS TEST 6 (six) times a day. 5 01/20/2017 11/07/2017 STRP strips for testing amLODIPine (for_NORVASC) Take 1 tablet by 0 12/2812/26/2017 10 mg tablet mouth daily. aspirin 81 mg chewable Chew 1 tablet daily. 0 05/201107/22/2017 tablet atorvastatin Take 1 tablet by 0 08/16/20162017 (for_LIPITOR) 20 mg mouth at bedtime. tablet colchicine (for_COLCRYS) Take 1 tablet by 0 06/2209/07/2017 0.6 mg tablet mouth once as needed. gabapentin Take 1 capsule by 0 08/16/2016 018 (for_NEURONTIN) 300 mg mouth daily. capsule insulin glargine Inject 30 Units 0 02/16/201601/2018 (for_LANTUS SoloStar) 100 under the skin. unit/mL (3 mL) injection insulin lispro (HumaLOG Inject under the 0 201607/22/2017 KwikPen) 100 unit/mL skin 3 (three) times injection a day before meals. [facility] item 0 08/23/2014 9 covered by pt ins. 250.02 IDDM type II Tests 4 times/day. Reason: High A1c. History labile sugars, hypertension, poor control lisinopril-hydroCHLOROthi Take 1 tablet by 0 11/201610/21/2017 azide mouth daily. (for_PRINZIDE,ZESTORETIC) 20-12.5 mg per tablet lisinopril-hydroCHLOROthi Take 1 tablet by 0 07/201505/08/2020 azide mouth daily. (PRINZIDE,ZESTORETIC) 20-12.5 mg per tablet METOPROLOL SUCCINATE ORAL Take 1 tablet by 0 2 12/201604/12/2017 mouth daily. nortriptyline Take 1 capsule by 0 12/22/201612/15 (for_PAMELOR) 25 mg mouth daily. capsule OMEPRAZOLE ORAL Take 1 capsule by 0 06/22/2016 mouth daily. oxyCODONE (OxyCONTIN) 30 Take 20 mg by mouth 0 01/03/2018 mg 12 hr tablet every 12 (twelve) hours. 30 mg every am and 20 mg every evening with evening meal pen needle, diabetic 31 Inject 1 each under 150 each 3 01/201704/20/2018 gauge x 5/16 needle the skin 4 (four) times a day. rOPINIRole (for_REQUIP) 2 Take 1 tablet by 0 10/1407/22/2017 mg tablet mouth 2 (two) times a day. documented as of this encounter Plan of Treatment Not on filedocumented as of this encounter Visit Diagnoses Not on filedocumented in this encounter Additional Health Concerns Assessment Noted Time PHQ-9 Depression Total Score: 6 12/22/2016 10:26 AM CD T documented as of this encounter Care Teams Cane Flume Feeding Machine Operator Relationship Specialty Start Date End Date Irma Zacarias, JULIÁN, C.N.P. PCP - General 10/28/16 04/05/[address] [phone] documented as of this encounter
--- OUTSIDE RECORDS SUMMARY | 2022-03-16 12:29 | XMS_ITS | Encounter Summary ---
:1950 Author Organization [facility] Address [address] [place] [address] Care Team Providers Name Role Phone Irma Zacarias APRN C.N.P. Primary Care Provider [phone] Encounter Details Date Type Department Care Team Description 03/04/2017 Hospital Encounter HX RST THEO Shawn Concepcion M.D. [address] [place], [place] [phone] (Wo rk) Social History [...] How often do you attend bahai or evangelical services? 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 lancets [facility] Dispense item 0 08/23/2014 9 covered by pt ins. 250.02 IDDM type II Tests 4 times/day. Reason: High A1c. History labile sugars, hypertension, poor control lisinopril-hydroCHLOROthi Take 1 tablet by 0 02/0 11/201610/21/2017 azide mouth daily. (for_PRINZIDE,ZESTORETIC) 20-12.5 mg per tablet lisinopril-hydroCHLOROthi Take 1 tablet by 0 10/07/201505/08/2020 azide mouth daily. (PRINZIDE,ZESTORETIC) 20-12.5 mg per [...] with evening meal pen needle, diabetic 31 Three times a day 0 06/2703/24/2017 gauge x 5/16 needle rOPINIRole (for_REQUIP) 2 Take 1 tablet by 0 10/1407/22/2017 mg tablet mouth 2 (two) times a day. documented as of this encounter Plan of Treatment Not on filedocumented as of this encounter Procedures Procedure Name Priority Date/Time Associated Comments Diagnosis GLUCOSE POCT, B Routine 03/04/2017 2:05 PM Result s for this CDT procedure are i n the results section. V&IRAD VASCULAR & Routine 03/04/2017 1:39 PM Resu lts for this INTERVENTION CDT procedure are i n the results section. GLUCOSE POCT, B Routine 03/04/2017 9:07 AM Result s for this CDT procedure are i n the results section. ECG Routine 03/04/2017 7:18 AM Results f or this CDT procedure are i n the results section. GLUCOSE POCT, B Routine 03/04/2017 7:08 AM Result s for this CDT procedure are i n the results section. documented in this encounter Results Glucose, POCT (03/04/2017 2:05 PM CDT) P athologist Signature Glucose, POCT, 126 70 - [address] [facility] B MG/DL LABORATORIES - [facility] Specimen Anatomical Collection Method Collection Time Receive d Time (Source) Location / / Volume Laterality 03/04/2017 2:05 PM 7 2:05 CDT PM CDT Historical Provider LAB POCT ORDERABLES-MANUAL Performing Organization Address City/State/ZIP Code Phon e Number [facility]IES - [address] [place], [place] [address] [facility] V&IRAD Vascular & Intervention (03/04/2017 1:39 PM CDT) Anatomical Region Laterality Modality N/A X-Ray Angiography Specimen (Source) Anatomical Collection Method Collection Time Re ceived Time Location / / Volume Laterality 03/04/2017 1:39 PM CDT Impressions 03/04/2017 5:35 PM CDT Placement of PTFE covered stent grafts across significant stenoses of the left common and external iliac arteries, as described below. ?? HISTORY: Long smoking history with diabe damion and renal insufficiency. Critical limb ischemia of the left lower extremity with nonhealing wounds and ulcerations with suboptimal TcPO2s in the left foot for healing. CTA showed extensive left precious c artery disease, as well as infrainguinal disease. We have elected to treat the iliac artery disease today. He does claudicate on the right. ?? TECHNIQUE: He was hydrated for approxima tely 5 hours prior to the procedure due to his renal insufficiency. He was loaded with Plavix and takes aspirin. Direct ultrasound guidance was used to access the left common femoral artery and to docum ent patency. A permanent image was stored. A Glidewire was advanced into the abdominal aorta and a 7Fr x 23cm Brite Tip sheath advanced into the distal left exter nal iliac artery. He was bolused with in travenous heparin. A straight Flush catheter was advanced into the infrarenal abdominal aorta and diagnostic pelvic angiography obtained. There is diffuse atheros clerotic disease of the abdominal aorta, which is diminutive in caliber and irregular. The right common and external iliac arteries are diffusely diseased with multifocal areas of at least moderate dise ase. The right internal iliac artery is atherosclerotic. The left common iliac artery is diffusely diseased, with a high-grade near critical stenosis along its mid aspect. There is a significant greater than 50% stenosis of the mid left external iliac artery. The left internal iliac artery is atherosclerotic but patent. Direct fluoroscopic guidance was used to deploy a 6mm x 23mm Vi abahn VBX PTFE covered stent graft acros s the left external iliac artery stenosis. This was postdilated to 7mm. I used a covered stent given my concerns about rupture. A repeat left external iliac angio gram showed brisk flow and no significan t residual narrowing. The left common iliac artery high grade stenosis was balloon dilated with a 5mm MANAGER PROCESS IMPROVEMENT balloon. Direct fluoroscopic guidance was then used to d eploy two superimposed 8mm in diamter Vi abahn VBX PTFE covered stent grafts extending from the ostium of the left common iliac artery, across the multifocal stenoses of the left common iliac artery. Thi s included the critical stenosis in the middle. A completion pelvic angiogram showed brisk flow and no significant residual narrowing on the left. He had an excellent pulse in the left groin region. The catheter and sheath were rem noe and hemostasis obtained with a StarClose device. Upon completion, the left foot was warmer, and doppler signals improved in the left DP and PT. ?? PREPROCEDURE: ??Patient seen, evaluated, history reviewed, and approved for sedation. Airway, heart, and lung exam satisfactory for sedation. Discussed risks, benefits, alternatives for procedure, and/o r sedation. The roles and responsibiliti es of care team members, residents, and fellows were discussed. Patient understands information and questions answered. Informed consent obtained from the patient . Immediately prior to starting the proc edure, in the presence of the assisting personnel, a procedural pause was conducted to verify correct patient identity and verification of procedure to be perform ed, and as applicable, correct side and site, correct patient position, availability of implants, special equipment, or special requirements, and all image and specimen identification data. ?? INTRAPROCEDURE: Moderate sedation was ad ministered by sedation nurse under my supervision. The patient was continuously monitored with real time oxygen saturation, heart rate, ECG rhythm strip and blood pressure throughout administration of t he sedation and performance of the procedure. The total intra-procedural sedation time was 52 minutes. Fluoro Time: 12 minutes. Electronically signed by: ?? Bj Concepcion MD ?? [id number] 04-Mar-2017 17:35 ?Arely Atkins MD [phone] 04-Mar-2017 17:35 Narrative 03/04/2017 5:35 PM CDT 04-Mar-2017 13:39:00 ??Exam: V&IRAD Vascular & Intervention Indications: PELVIC ARTERIOGRAM WITH MANAGER PROCESS IMPROVEMENT /STENTING OF ILIAC ARTERYS;PAD, claudication ORIGINAL REPORT - 04-Mar-2017 17:35:00 V&IRAD Vascular & Intervention: Procedure Note Ottoniel Concepcion M.D. - 08/10/2017Fo rmatting of this note might be different from the original. 04-Mar-2017 13:39:00 Exam: V&IRAD Vascul ar & Intervention Indications: PELVIC ARTERIOGRAM WITH MANAGER PROCESS IMPROVEMENT /STENTING OF ILIAC ARTERYS;PAD, claudication ORIGINAL REPORT - 04-Mar-2017 17:35:00 V&IRAD Vascular & Intervention: IMPRESSION: Placement of PTFE covered st ent grafts across significant stenoses of the left common and external iliac arteries, as described below. HISTORY: Long smoking history with diabe damion and renal insufficiency. Critical limb ischemia of the left lower extremity with nonhealing wounds and ulcerations with suboptimal TcPO2s in the left foot for healing. CTA showed extensive left iliac artery disea se, as well as infrainguinal disease. We have elected to treat the iliac artery disease today. He does claudicate on the right. TECHNIQUE: He was hydrated for approxima tely 5 hours prior to the procedure due to his renal insufficiency. He was loaded with Plavix and takes aspirin. Direct ultrasound guidance was used to access the left common femoral artery and to document pa tency. A permanent image was stored. A Glidewire was advanced into the abdominal aorta and a 7Fr x 23cm Brite Tip sheath advanced into the distal left external iliac artery. He was bolused with intravenous heparin. A straight Flush catheter was advanced into the infrarenal abdominal aorta and diagnostic pelvic angiography obtained. There is diffuse atherosclerotic disease of the abdominal aorta, which is diminutive in caliber and irregular. The right common and external iliac arteries are diffusely diseased with multifocal areas of at least moderate disease. The right internal iliac artery is atherosclerotic. The left common iliac a rtery is diffusely diseased, with a high-grade near critical stenosis along its mid aspect. There is a significant greater than 50% stenosis of the mid left external iliac artery. The left internal iliac artery i s atherosclerotic but patent. Direct fluoroscopic guidance was used to deploy a 6mm x 23mm Viabahn VBX PTFE covered stent graft across the left external iliac artery stenosis. This was postdilated to 7mm. I used a co alexandro stent given my concerns about rupture. A repeat left external iliac angiogram showed brisk flow and no significant residual narrowing. The left common iliac artery high grade stenosis was balloon dilated with a 5mm MANAGER PROCESS IMPROVEMENT balloon. Direct fluoroscopic guidance was then used to deploy two superimposed 8mm in diamter Viabahn VBX PTFE covered stent grafts extending from the ostium of the left common iliac artery, across the multifocal stenoses of the left common iliac artery. This included the critical stenosis in the middle. A completion pelvic angiogram showed brisk flow and no significant residual narrowing on the left. He had an excelle nt pulse in the left groin region. The catheter and sheath were removed and hemostasis obtained with a StarClose device. Upon completion, the left foot was warmer, and doppler signals improved in the left DP and PT. PREPROCEDURE: Patient seen, evaluated, h istory reviewed, and approved for sedation. Airway, heart, and lung exam satisfactory for sedation. Discussed risks, benefits, alternatives for procedure, and/or sedation. The roles and responsibilities of care t eam members, residents, and fellows were discussed. Patient understands information and questions answered. Informed consent obtained from the patient. Immediately prior to starting the procedure, in the presence of the assisting personnel, a procedural pause was conducted to verify correct patient identity and verification of procedure to be performed, and as applicable, correct side and site, correct patient position, avai lability of implants, special equipment, or special requirements, and all image and specimen identification data. INTRAPROCEDURE: Moderate sedation was ad ministered by sedation nurse under my supervision. The patient was continuously monitored with real time oxygen saturation, heart rate, ECG rhythm strip and blood pressure throughout administration of the sedatio n and performance of the procedure. The total intra-procedural sedation time was 52 minutes. Fluoro Time: 12 minutes. Electronically signed by: Bj Concepcion MD [id number] 04-Mar-2017 17 :35 Arely Atkins MD [phone] 04-Mar-2017 17:35 Dino Lindsey M.D. IMG IR PROCEDURES (ABNORMAL) Glucose, POCT (03/04/2017 9:07 AM CDT) [facility] Method Time Signature Last Intake NPO [facility] Glucose, 169 (H) 70 - [address] [facility] POCT, B MG/DL LABORATORIES - [facility] Sample Site, Capillary [facility] Blood Gas, LABORATORIES - POCT [facility] Specimen Anatomical Collection Method Collection Time Receive d Time (Source) Location / / Volume Laterality 03/04/2017 9:07 AM 7 9:07 CDT AM CDT Historical Provider LAB POCT ORDERABLES-MANUAL Performing Organization Address City/[facility]/ZIP Code Phon e Number [facility]ATORIES - [address] [place], [place] [address] [facility] ECG 12 Lead (03/04/2017 7:18 AM CDT) Specimen (Source) Anatomical Collection Method Collection Time Re ceived Time Location / / Volume Laterality 03/04/2017 7:18 AM CDT Narrative HISTORICAL [facility] IMAG[facility] CONVERSION - 7:23 AM CDT 04Mar2017 07:18 VENTRICULAR RATE 64 Normal sinus rhythm Right bundle branch block No previous ECGs available [id number]^BECKY BONILLA^CANDY Procedure Note Candy Araujo M.D. - 08/04/2017Form atting of this note might be different from the original. 04Mar2017 07:18 VENTRICULAR RATE 64 Normal sinus rhythm Right bundle branch block No previous ECGs available [id number]^BECKY BONILLA^CANDY Ottoniel Concepcion M.D. ECG ORDERABLES Performing Organization Address City/[facility]/ZIP Code Phon e Number HX MIGUE CONVERSION HISTORICAL [facility]AG[facility] CONVERSION (ABNORMAL) Glucose, POCT (03/04/2017 7:08 AM CDT) [facility] gist Method Time Signature Glucose, 214 (H) 70 - [address] [facility] POCT, B MG/DL LAB[facility]ATORIES - [facility] Sample Site, Capillary [facility] Blood Gas, LABORATORIES - POCT [facility] Last Intake NPO [facility] - [facility] Specimen Anatomical Collection Method Collection Time Receive d Time (Source) Location / / Volume Laterality 03/04/2017 7:08 AM 7 7:08 CDT AM CDT Historical Provider LAB POCT ORDERABLES-MANUAL Performing Organization Address City/[facility]/ZIP Code Phon e Number [facility] - [address] [place], [place] [address] [facility] documented in this encounter Visit Diagnoses Not on filedocumented in this encounter Additional Health Concerns Assessment Noted Time PHQ-9 Depression Total Score: 6 12/22/2016 10:26 AM CD T documented as of this encounter Care Teams Plasticator Relationship Specialty Start Date End Date Irma Zacarias, JULIÁN, C.N.P. PCP - General 10/28/16 04/05/17 [address] [place] [address] documented as of this encounter
--- OUTSIDE RECORDS SUMMARY | 2022-03-16 12:29 | XMS_ITS | Encounter Summary ---
:1950 Author Organization [facility] Address [address] [place] [address] Care Team Providers Name Role Phone Renee Catalan M.D. Primary Care Provider [phone] Reason for Visit Reason Comments Communication Encounter Details Date Type Department Care Team Description 04/06/2017 Clinical Communication Department of Tono Batista Communication Medicine, [place] Jennyfer Barrios [facility], in [address] [phone] Social History Tobacco Use Types Packs/Day Years [...] How often do you attend anabaptism or latter day services? 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 - 04/26/2017 4:08 PM CST Entered in error CLE SERVICE TECHNICIAN documented in this encounter Plan of Treatment Not on filedocumented as of this encounter Visit Diagnoses Not on filedocumented in this encounter Additional Health Concerns Assessment Noted Time PHQ-9 Depression Total Score: 6 12/22/2016 10:26 AM CD T documented as of this encounter Care Teams Audit Clerk Relationship Specialty Start Date End Date Renee Catalan M.D. PCP - General Family Medicine 04/11/17 07/18/[address] [phone] documented as of this encounter
--- OUTSIDE RECORDS SUMMARY | 2022-03-16 12:29 | XMS_ITS | Encounter Summary ---
:1950 Author Organization [facility] Address [address] [place] [address] Care Team Providers Name Role Phone Irma Zacarias APRN C.N.PFei Primary Care Provider [phone] Encounter Details Date Type Department Care Team Description 03/15/2017 Abstract Department of Family Medicine, Provider, Historical [facility], in [place], [place] [address], [place] [address] [facility] [phone] Social History Tobacco Use Types Packs/Day Years [...] week 03/25/2021 How often do you attend religious or jainism services? 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 PCP - General 10/28/16 04/05/[address] [phone] documented as of this encounter
--- OUTSIDE RECORDS SUMMARY | 2022-03-16 12:29 | XMS_ITS | Encounter Summary ---
:1950 Author Organization [facility] Address [address] [place] [address] Care Team Providers Name Role Phone Renee Catalan M.D. Primary Care Provider [phone] Encounter Details Date Type Department Care Team Description 05/04/2017 Abstract Department of Family Medicine in [facility] , [address] [phone] Social History Tobacco Use Types Packs/Day Years [...] How often do you attend protestant or scientology services? 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 PCP - General Family Medicine 04/11/17 07/18/[address] [phone] documented as of this encounter
--- OUTSIDE RECORDS SUMMARY | 2022-03-16 12:29 | XMS_ITS | Encounter Summary ---
:1950 Author Organization [facility] Address [address] [place] [address] Care Team Providers Name Role Phone Irma Zacarias APRN C.N.P. Primary Care Provider [phone] Encounter Details Date Type Department Care Team Description 04/04/2017 Hospital Encounter HX NO MAPPING Oracio Dougherty C [address] [place], [place] [phone] Social History Tobacco Use Types Packs/Day Years [...] How often do you attend buddhism or druze services? 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 lancets misc Dispense item 0 08/23/2014 [...] SUCCINATE ORAL Take 1 tablet by 0 12/1504/12/2017 mouth daily. nortriptyline Take 1 capsule by [...] documented as of this encounter Care Teams Blanket Cutting Machine Operator Relationship Specialty Start Date End Date Irma Zacarias, JULIÁN, C.N.P. PCP - General 10/28/16 04/05/[address] [phone] documented as of this encounter
--- OUTSIDE RECORDS SUMMARY | 2022-03-16 12:29 | XMS_ITS | Encounter Summary ---
:1950 Author Organization [facility] Address [address] [place] [address] Care Team Providers Name Role Phone Renee Catalan M.D. Primary Care Provider [phone] Encounter Details Date Type Department Care Team Description 05/23/2017 Hospital Encounter HX NO MAPPING Social History [...] How often do you attend mormonism or latter-day services? 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 lancets [facility] [place] item covered 0 08/23/2014 1 by [...] as of this encounter Care Teams Hand Pleater Relationship Specialty Start Date End Date Renee Catalan M.D. PCP - General Family Medicine 04/11/17 07/18/[address] [phone] documented as of this encounter
--- OUTSIDE RECORDS SUMMARY | 2022-03-16 12:29 | XMS_ITS | Encounter Summary ---
:1950 Author Organization [facility] Address [address] [place] [address] Care Team Providers Name Role Phone Renee Catalan M.D. Primary Care Provider Reason for Visit Reason Comments Follow-up tcm appointment for [facility] discharged on 04/05/2017 for critcal limb ischemia le ft leg Pre-op Exam for proceedure scheduled for 04/29/2017 at [facility] Appointment Request (Routine) - Closed Specialty Diagnoses / Procedures Referred By Contact Refer red To Contact Family Medicine Referral ID Status Reason Start Date Expiration Date Visits Requ ested Visits Authorized [id number] Closed 04/06/2017 10/03/2017 1 1 Encounter Details Date Type Department Care Team Description 04/11/2017 Office Visit Department of Family [place] Preop erative Exam (Primary Dx); Medicine, Renee Herndon, Athero 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 documented as of this encounter Last Filed Vital Signs Vital Sign Reading Time Taken Comments Blood Pressure 90/62 04/11/2017 3:02 PM SHEETER MACHINE OPERATOR Pulse 64 04/11/2017 3:02 PM SHEETER MACHINE OPERATOR Temperature 35.7 ??C (96.3 ??F) 04/11/2017 3:02 PM SHEETER MACHINE OPERATOR Respiratory Rate 20 04/11/2017 3:02 PM SHEETER MACHINE OPERATOR Oxygen Saturation 95% 04/11/2017 3:02 PM SHEETER MACHINE OPERATOR room ai r Inhaled Oxygen Concentration - - Weight 74.9 kg (165 lb 2 oz) 04/11/2017 3:02 PM SHEETER MACHINE OPERATOR Height 173 cm (5' 8.11) 04/11/2017 3:02 PM SHEETER MACHINE OPERATOR Body Mass Index 25.03 04/11/2017 3:02 PM SHEETER MACHINE OPERATOR documented in this encounter H&P Notes Renee Catalan M.D. - 04/11/2017 3:00 PM CST CHIEF COMPLAINT/ REASON FOR VISIT TCM hospitalization followup and preoperative exam. Hospitalized at: [facility]. Admission date: 04/04/2017. Discharge date: 04/05/2017. Contacted by clinic nursing staff on: 04/06/2017. Proposed surgery date: 04/29/2017. Proposed surgery: Amputation of left great toe. Location: [facility]. HISTORY OF PRESENT ILLNESS Onesimo is a 67-year-old male who presents to the clinic today for above concerns. He was hospitalized 04/04-04/05/2017 at [facility] in [place] after undergoing left femoral artery endarterectomy with patch angioplasty and left endovascular superficial femoral artery stent x 2 on 04/04/2017. Since being discharged he has been doing well. Onesimo states that pain in his left leg has improved since surgery. He is tentatively scheduled for amputation of his left great toe on 04/29/2017 in [place]. He continues to smoke but has an appointment scheduled for cessation counseling on 04/18. He has gonefrom smoking a whole pack of cigarrettes per day to a half pack per day. Recenlty his blood sugars have been difficult to control due to the antibiotics he has been on recently. There are no further concerns at this time. MEDICATIONS Post-visit Medication Reconciliation Current Outpatient Prescriptions on File Prior to Visit Medication Sig Dispense Refill ??? ACCU-CHEK XIAO [...] tablet by mouth once as needed. ??? collagenase (SANTYL) 250 unit/gram ointment Apply 1 application topically daily. Thin dime sizedlayer of Santyl once daily to left anterior tibial and left great toe wounds ??? DULoxetine (for_CYMBALTA) [address] capsule Take 1 capsule by mouth 2 (two) times a day. ??? gabapentin (for_NEURONTIN) 300 mg capsule Take 1 capsule by mouth daily. ??? insulin glargine (for_LANTUS SoloStar) 100 unit/mL (3 mL) injection Inject 30 Units under the skin. ??? insulin lispro (HumaLOG KwikPen) 100 unit/mL injection Inject under the skin 3 (three) times a day before meals. ??? lancets [facility] Dispense item covered by pt ins. 250.02 IDDM type II Tests 4 times/day. Reason: High A1c. History labile sugars, hypertension, poor control ??? lisinopril-hydroCHLOROthiazide (for_PRINZIDE,ZESTORETIC) 20-12.5 mg per tablet Take 1 tablet by mouth daily. ??? METOPROLOL SUCCINATE ORAL Take 1 tablet by mouth daily. ??? nortriptyline (for_PAMELOR) 25 mg capsule Take 1 capsule by mouth daily. ??? oxyCODONE (OxyCONTIN) 30 mg 12 hr tablet Take 1 tablet by mouth every 12 (twelve) hours. ??? pantoprazole (for_PROTONIX) 40 mg EC tablet Take 40 mg by mouth once daily. ??? pen needle, diabetic 31 gauge x 5/16 needle Inject 1 each under the skin 4 (four) times a day. 150 each 3 ??? rOPINIRole XL (for_REQUIP XL) 2 mg 24 hr tablet Take 2 mg by mouth 2 (two) times a day. ??? sennosides-docusate sodium (for_SENOKOT-S) 8.6-50 mg per tablet Take 1-2 tablets by mouth once daily. Take once daily prn constipation ??? amoxicillin-pot clavulanate (for_AUGMENTIN) 875-125 mg per tablet Take 1 tablet by mouth every 12 (twelve) hours. One tablet twice daily x 5 days. Started 04-05-17. ??? aspirin 81 mg chewable tablet Chew 1 tablet daily. ??? OMEPRAZOLE ORAL Take 1 capsule by mouth daily. ??? OXYCODONE HCL (OXYCODONE ORAL) Take 5-10 mg by mouth every 6 (six) hours as needed (pain). Taperoff over the next few days. ??? rOPINIRole (for_REQUIP) 2 mg tablet Take 1 tablet by mouth 3 (three) times a day. No current facility-administered medications on file prior to visit. ALLERGIES Allergies Allergen Reactions ??? Morphine Itching ??? Znzgeok-Oow-Gtr Reductase Inhibitors Myalgia SYSTEMS REVIEW Please see HPI for pertinent positives, otherwise rest of ROS negative. Cardiac risk factors: yes, known peripheral vascular disease, smoking and hypertension. Pulmonary risk factors: none Sleep Apnea: none Steroid use within the past 12 months: none Diabetes: yes, type II diabetes mellitus insulin dependent. Bleeding risk factors: none Anesthesia reactions: none Need for prophylactic antibiotics: none Beta terrell: yes. The remainder of the review of systems is negative. PAST MEDICAL HISTORY Past Medical History: Diagnosis Date ??? [...] ??? Transient Ischemic Attack 2009 without residua PAST SURGICAL HISTORY Past Surgical History: Procedure Laterality Date ??? ANGIOPLASTY/STENT ENDOVASCULAR FEMORAL AND/OR POPLITEAL ARTERY Left 04/04/2017 Left endovascular superficial femoral artery stent x 2. ??? ARTHROSCOPIC REPAIR OF ROTATOR CUFF Right 2004 ??? CATARACT EXTRACTION AND INSERTION OF INTRAOCULAR LENS N/A 10/29/2007 Cataract extraction and insertion of intraocular lens ??? DECOMPRESSION OF MEDIAN NERVE N/A 01/30/2002 Carpal tunnel release ??? ENDARTERECTOMY FEMORAL - ANGIOPLASTY/INTERPOSITION PATCH GRAFT WITH OR WITHOUT PROFUNDOPLASTY Left 04/04/2017 Due to critical limb ischemia, left lower extremity, secondary to atherosclerosis ??? NM SESTAMIBI W/DOBUTAMINE 1 DA postive for myocardial ischemia with normal LVEF ??? TONSILLECTOMY as a child PREVENTIVE SERVICES Tobacco use: yes current every day smoker. Immunization History Administered Date(s) Administered ??? HZV 02/02/2012 ??? Influenza TIV (IM) 04/04/2006, 03/03/2007, 03/13/2008, 02/13/2010, 05/27/2011, 02/02/2012, 05/10/2013 ??? Influenza, Unspecified 05/10/2013, 02/13/2014, 03/17/2015, 02/16/2016, 02/16/2016, 02/10/2017 ??? PCV13 04/11/2017 ??? PPSV23 02/13/2010, 02/14/2012 ??? Td (Adult), adsorbed 05/16/1996, 03/24/2007 ??? Tdap 08/16/2016, 08/16/2016 SOCIAL HISTORY Social History Social History ??? Marital status: Spouse name: N/A ??? Number of children: N/A ??? Years of education: N/A Social History Main Topics ??? Smoking status: Current Every Day Smoker ??? Smokeless tobacco: Never Used ??? Alcohol use No ??? Drug use: Unknown ??? Sexual activity: Not Asked Other Topics Concern ??? None Social History Narrative He is . He is retired. 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 FAMILY HISTORY Family History Problem Relation Age of Onset ??? No Known Problems Brother ??? Diabetes Sister ??? Dementia Mother ??? Diabetes Brother ??? Stroke Brother ??? Diabetes Brother ??? Prediabetes Sister VITAL SIGNS BP 90/62 (BP Location: Left arm, Patient Position: Sitting, Cuff Size: Regular) Pulse 64 Temp (!) 35.7 ??C (Temporal) Resp 20 Ht 173 cm Wt 74.9 kg SpO2 95% Comment: room air BMI 25.03 kg/m?? PHYSICAL EXAMINATION General: Alert and orientated x3, good hygiene, appropriately dressed. HEENT: Tympanic membranes are normal bilaterally. Oropharynx is without erythema or exudate. Nasal mucosa is without injection. Neck is without adenopathy. Lymph nodes: Not palpably enlarged and no nodules are palpated. Heart: Regular rate and rhythm without murmur. Lungs: Clear to auscultation. Abdomen: Soft and nontender with no masses.Wound in left groin is well approximated, healing well with no drainage. Extremities: Within normal limits. DIAGNOSTICS LABORATORY: CBC results: pending. IMPRESSION/REPORT/PLAN #1 Recent left femoral endarterectomy. Pain has improved in his left lower extremity as has blood flow. Continue to follow with vascular medicine at [facility] as recommended. #2 Preoperative evaluation for surgery. He is asymptomatic from a cardiac standpoint and tolerated recent procedure without difficulty. The patient is cleared up to and including general anesthesia. CBC will be checked today. Follow up. The patient will contact the clinic with any new or worsening symptoms. This document serves as a record of services personally performed by Renee Lacy MD. It was created on their behalf by Marie Peterson, a trained biomedical engineer. The creation of this record is based on the scribe's personal observations and the provider's statements to them. This document has been parul cked and approved by the attending provider. TER MACHINE OPERATOR documented in this encounter Plan of Treatment Not on filedocumented as of this encounter Procedures Procedure Name Priority Date/Time Associated Diagnosis Comme nts CBC WITH Routine 04/11/2017 4:15 Preoperative Exa m Results for this DIFFERENTIAL, B PM SHEETER MACHINE OPERATOR Atherosclerosis procedure are in Arteriosclerosis the results Obliterans Lower section. Extremity With Claudication Lef t (HCC) Anemia Iron Deficiency documented in this encounter Results (ABNORMAL) CBC with Differential (04/11/2017 4:15 PM SHEETER MACHINE OPERATOR) [facility] Method Time Signature Hemoglobin 10.7 (L) 13.2 - 04/11/2017 [facility] 16.6 g/dL 4:24 PM [facility] Hematocrit 32.3 (L) 38.3 - 04/11/2017 [facility] 48.6 % 4:24 PM [facility] Erythrocytes 3.32 (L) 4.35 - 04/11/2017 [facility] 5.65 4:24 PM SHEETER MACHINE OPERATOR HEALTH x10(12)/L [facility] MCV 97.3 78.2 - 04/11/2017 [facility] 97.9 fL 4:24 PM [facility] RBC Distrib Width 13.8 11.8 - 04/11/2017 [facility] 14.5 % 4:24 PM [facility] Platelet Count 395 (H) 135 - 317 04/11/2017 [facility] x10(9)/L 4:24 PM [facility] Leukocytes 15.0 (H) 3.4 - 9.6 04/11/2017 [facility] x10(9)/L 4:24 PM [facility] Neutrophils 9.68 (H) 1.56 - 04/11/2017 [facility] 6.45 4:24 PM SHEETER MACHINE OPERATOR HEALTH x10(9)/L [facility] [place] [facility] Lymphocytes 2.74 0.95 - 04/11/2017 [facility] 3.07 4:24 PM SHEETER MACHINE OPERATOR HEALTH x10(9)/L [facility]- [facility] Monocytes 1.61 (H) 0.26 - 04/11/2017 [facility] 0.81 4:24 PM SHEETER MACHINE OPERATOR HEALTH x10(9)/L [facility]- [facility] Eosinophils 0.89 (H) 0.03 - 04/11/2017 [facility] 0.48 4:24 PM SHEETER MACHINE OPERATOR HEALTH x10(9)/L [facility] [facility] Basophils 0.03 0.01 - 04/11/2017 [facility] 0.08 4:24 PM SHEETER MACHINE OPERATOR HEALTH x10(9)/L [facility]- [facility] Specimen Anatomical Collection Method Collection Time Receive d Time (Source) Location / / Volume Laterality Blood (Blood, 04/11/2017 4:15 PM 04/11/20 17 4:16 Venous) SHEETER MACHINE OPERATOR PM SHEETER MACHINE OPERATOR Renee Catalan M.D. LAB BLOOD ADD-ON Performing Organization Address City/State/ZIP Code Phon e Number [facility] [address] [place] [address] [facility]- [address] [place] [address] [facility] documented in this encounter Visit Diagnoses Diagnosis Preoperative Exam - Primary Atherosclerosis Arteriosclerosis Obliter ans Lower Extremity With Claudication Left (HCC) Anemia Iron Deficiency documented in this encounter Additional Health Concerns Assessment Noted Time PHQ-9 Depression Total Score: 6 12/22/2016 10:26 AM CD T documented as of this encounter Care Teams Mechanical Design Engineer Products Relationship Specialty Start Date End Date Renee Catalan M.D. PCP - General Family Medicine 04/11/17 07/18/[address] [phone] documented as of this encounter
--- OUTSIDE RECORDS SUMMARY | 2022-03-16 12:29 | XMS_ITS | Encounter Summary ---
:1950 Author Organization [facility] Address [address] [place] [address] Care Team Providers Name Role Phone Irma Zacarias APRN C.N.P. Primary Care Provider [phone] Encounter Details Date Type Department Care Team Description 04/04/2017 - 04/05/2017 Hospital Encounter [facility] Social History Tobacco Use Types Packs/Day Years [...] How often do you attend jainism or roman catholic services? 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 Pulse 87 04/05/2017 3:30 PM Value from [facility]. AUTO BODY REPAIR TECHNICIAN Temperature - - Respiratory Rate 20 04/05/2017 3:17 PM Value from C [facility]. AUTO BODY REPAIR TECHNICIAN Oxygen Saturation - - Inhaled Oxygen - - Concentration Weight 74.4 kg (164 lb 0.4 04/04/2017 4:50 PM Value fro m [facility]. oz) AUTO BODY REPAIR TECHNICIAN Height 176 cm (5' 9.29) 04/04/2017 7:52 AM Vital si gn result AUTO BODY REPAIR TECHNICIAN from [facility]. Body Mass Index 24.02 04/04/2017 7:52 AM AUTO BODY REPAIR TECHNICIAN documented in this encounter Medications at Time [...] times injection a day before meals. lancets [facility] [place] Dispense item 0 08/23/2014 [...] SUCCINATE ORAL Take 1 tablet by 0 /2 12/201604/12/2017 mouth daily. nortriptyline Take 1 capsule [...] Associated Comments Diagnosis GLUCOSE POCT, B Routine 04/05/2017 11:43 Results for this AM AUTO BODY REPAIR TECHNICIAN procedure are i n the results section. GLUCOSE POCT, B Routine 04/05/2017 6:50 AM Result s for this AUTO BODY REPAIR TECHNICIAN procedure are i n the results section. ELECTROLYTE (CHEM 4) Routine 04/05/2017 3:42 AM R esults for this PANEL, S/P AUTO BODY REPAIR TECHNICIAN procedure are i n the results section. CBC WITHOUT Routine 04/05/2017 3:42 AM Results f or this DIFFERENTIAL, B AUTO BODY REPAIR TECHNICIAN procedure ar e in the results section. GLUCOSE POCT, B Routine 04/04/2017 9:51 PM Result s for this AUTO BODY REPAIR TECHNICIAN procedure are i n the results section. CARDIAC BIOMARKER Routine 04/04/2017 5:04 PM Resu lts for this PANEL, S AUTO BODY REPAIR TECHNICIAN procedure are i n the results section. GLUCOSE POCT, B Routine 04/04/2017 4:50 PM Result s for this AUTO BODY REPAIR TECHNICIAN procedure are i n the results section. GLUCOSE POCT, B Routine 04/04/2017 3:02 PM Result s for this AUTO BODY REPAIR TECHNICIAN procedure are i n the results section. ECG Routine 04/04/2017 2:34 PM Results f or this AUTO BODY REPAIR TECHNICIAN procedure are i n the results section. V&IRAD VASCULAR & Routine 04/04/2017 1:47 PM Resu lts for this INTERVENTION AUTO BODY REPAIR TECHNICIAN procedure are i n the results section. ACT, POCT, B Routine 04/04/2017 12:59 Results for this PM AUTO BODY REPAIR TECHNICIAN procedure are i n the results section. GLUCOSE POCT, B Routine 04/04/2017 12:57 Results for this PM AUTO BODY REPAIR TECHNICIAN procedure are i n the results section. ACT, POCT, B Routine 04/04/2017 12:29 Results for this PM AUTO BODY REPAIR TECHNICIAN procedure are i n the results section. ACT, POCT, B Routine 04/04/2017 11:58 Results for this AM AUTO BODY REPAIR TECHNICIAN procedure are i n the results section. GLUCOSE POCT, B Routine 04/04/2017 11:57 Results for this AM AUTO BODY REPAIR TECHNICIAN procedure are i n the results section. ACT, POCT, B Routine 04/04/2017 11:34 Results for this AM AUTO BODY REPAIR TECHNICIAN procedure are i n the results section. GLUCOSE POCT, B Routine 04/04/2017 11:33 Results for this AM AUTO BODY REPAIR TECHNICIAN procedure are i n the results section. ACT, POCT, B Routine 04/04/2017 11:08 Results for this AM AUTO BODY REPAIR TECHNICIAN procedure are i n the results section. GLUCOSE POCT, B Routine 04/04/2017 11:06 Results for this AM AUTO BODY REPAIR TECHNICIAN procedure are i n the results section. ACT, POCT, B Routine 04/04/2017 10:39 Results for this AM AUTO BODY REPAIR TECHNICIAN procedure are i n the results section. GLUCOSE POCT, B Routine 04/04/2017 10:36 Results for this AM AUTO BODY REPAIR TECHNICIAN procedure are i n the results section. GLUCOSE POCT, B Routine 04/04/2017 9:51 AM Result s for this AUTO BODY REPAIR TECHNICIAN procedure are i n the results section. GLUCOSE POCT, B Routine 04/04/2017 7:34 AM Result s for this AUTO BODY REPAIR TECHNICIAN procedure are i n the results section. CREATININE WITH EGFR, Routine 04/04/2017 7:21 AM Results for this S/P AUTO BODY REPAIR TECHNICIAN procedure are i n the results section. documented in this encounter Results (ABNORMAL) Glucose, POCT (04/05/2017 11:43 AM AUTO BODY REPAIR TECHNICIAN) [facility] Method Time Signature Last Intake 3-4 hours [facility] Glucose, 226 (H) 70 - 140 [facility] POCT, B MG/DL LABORATORIES - [facility] Sample Site, Capillary [facility] Blood Gas, LABORATORIES - POCT [facility] Specimen Anatomical Collection Method Collection Time Receive d Time (Source) Location / / Volume Laterality 04/05/2017 11:43 04/05/2017 AM AUTO BODY REPAIR TECHNICIAN 11:43 AM AUTO BODY REPAIR TECHNICIAN Historical Provider LAB POCT ORDERABLES-MANUAL Performing Organization Address City/[facility]/ZIP Code Phon e Number [facility] LABORATORIES - [address] [place] [address] [facility] (ABNORMAL) Glucose, POCT (04/05/2017 6:50 AM AUTO BODY REPAIR TECHNICIAN) Patholo gist Method Time Signature Last Intake > 4 hours [facility] Glucose, 194 (H) 70 - 140 [facility] POCT, B MG/DL LABORATORIES - [facility] Sample Site, Capillary [facility] Blood Gas, LABORATORIES - POCT [facility] Specimen Anatomical Collection Method Collection Time Receive d Time (Source) Location / / Volume Laterality 04/05/2017 6:50 AM 7 6:50 AUTO BODY REPAIR TECHNICIAN AM AUTO BODY REPAIR TECHNICIAN Historical Provider LAB POCT ORDERABLES-MANUAL Performing Organization Address City/[facility] Code Phon e Number [facility] LABORATORIES - [address] [place] [address] [facility] (ABNORMAL) Electrolyte (Chem 4) Panel (04/05/2017 3:42 AM AUTO BODY REPAIR TECHNICIAN) P athologist Signature Sodium, S 138 135 - 145 [facility] MMOL/L [facility] Comment: Drawn From Arterial Line Potassium, S 4.4 3.6 - 5.2 MMOL/L [facility] Comment: Drawn From Arterial Line Creatinine 1.4 (H) 0.8 - 1.3 MG/DL [facility] L [facility] Comment: Drawn From Arterial Line eGFR Non-Black/ 51 (L) >60 ML/MIN/BSA [facility] Comment: Drawn From Arterial Line Anion Gap 13 7 - 15 [facility] LABORATO [facility] Comment: Drawn From Arterial Line Glucose, S 186 (H) 70 - 140 MG/DL [facility] LA [facility] Comment: Drawn From Arterial Line Chloride, S 99 98 - 107 MMOL/L [facility] Comment: Drawn From Arterial Line HX Bicarbonate, P/S 26 22 - 29 MMOL/L [facility] Comment: Drawn From Arterial Line eGFR-Black/ >60 >60 ML/MIN/BSA [facility] S Comment: Drawn From Arterial Line BUN (Blood Urea Nitrogen), S 16 8 - 24 MG/DL [facility] S Comment: Drawn From Arterial Line Specimen Anatomical Collection Method Collection Time Receive d Time (Source) Location / / Volume Laterality 04/05/2017 3:42 AM 7 3:42 AUTO BODY REPAIR TECHNICIAN AM AUTO BODY REPAIR TECHNICIAN Narrative [facility] - 04/05/2017 4:57 AM AUTO BODY REPAIR TECHNICIAN Drawn From Arterial Line Kemar Reyes LAB BLOOD ADD-ON Performing Organization Address City/State/ZIP Code Phon e Number [facility] - [address] [place] [address] [facility] (ABNORMAL) CBC without Differential (04/05/2017 3:42 AM AUTO BODY REPAIR TECHNICIAN) [facility] Method Time Signature Erythrocytes 2.76 (L) 4.32 - [facility] 5.72 LABORATORIES - X10(12)/L [facility] Comment: Drawn From Arterial Line MCV 94.6 81.2 - 95.1 FL [facility] Comment: Drawn From Arterial Line Leukocytes 14.9 (H) 3.5 - 10.5 X10(9)/L [facility] Comment: Drawn From Arterial Line Hemoglobin 8.7 (L) 13.5 - 17.5 G/DL [facility] Comment: Drawn From Arterial Line Hematocrit 26.1 (L) 38.8 - 50.0 % [facility] Comment: Drawn From Arterial Line RBC Distrib Width 13.2 11.8 - 15.6 % [facility] Comment: Drawn From Arterial Line Platelet Count 204 150 - 450 X10(9)/L [facility] Comment: Drawn From Arterial Line Specimen Anatomical Collection Method Collection Time Receive d Time (Source) Location / / Volume Laterality 04/05/2017 3:42 AM 7 3:42 AUTO BODY REPAIR TECHNICIAN AM AUTO BODY REPAIR TECHNICIAN Narrative [facility] - 04/05/2017 4:30 AM AUTO BODY REPAIR TECHNICIAN Drawn From Arterial Line Kemar Reyes LAB BLOOD ADD-ON Performing Organization Address City/[facility]/ZIP Code Phon e Number [facility] LABORATORIES - [address] [address] [facility] (ABNORMAL) Glucose, POCT (04/04/2017 9:51 PM AUTO BODY REPAIR TECHNICIAN) Patholo gist Method Time Signature Last Intake 2-3 hours [facility] Glucose, 236 (H) 70 - 140 [facility] POCT, B MG/DL [facility] Sample Site, Capillary [facility] Blood Gas, LABORATORIES - POCT [facility] Specimen Anatomical Collection Method Collection Time Receive d Time (Source) Location / / Volume Laterality 04/04/2017 9:51 PM 7 9:51 AUTO BODY REPAIR TECHNICIAN PM AUTO BODY REPAIR TECHNICIAN Historical Provider LAB POCT ORDERABLES-MANUAL Performing Organization Address City/[facility]/ZIP Code Phon e Number [facility] LABORATORIES - [address] [address] [facility] Cardiac Biomarker Panel (04/04/2017 5:04 PM AUTO BODY REPAIR TECHNICIAN) P athologist Signature Troponin T, S <0.01 <0.01 [facility] NG/ML [facility] Comment: Drawn From Arterial Line Troponin T 3H, S <0.01 <0.01 NG/ML [facility] Comment: Drawn From Arterial Line Troponin Delta 0.00 NG/ML [facility] Comment: Drawn From Arterial Line Delta Interp Not Sig [facility] Comment: Drawn From Arterial Line ? No significant delta observed. ? Troponin Delta 0.00 NG/ML [facility] Comment: Drawn From Arterial Line Troponin T 6H, S <0.01 <0.01 NG/ML [facility] Comment: Drawn From Arterial Line Delta Interp Not Sig [facility] Comment: Drawn From Arterial Line ? No significant delta observed. ? Specimen Anatomical Collection Method Collection Time Receive d Time (Source) Location / / Volume Laterality 04/04/2017 5:04 PM 04/04/ 7 5:04 AUTO BODY REPAIR TECHNICIAN PM AUTO BODY REPAIR TECHNICIAN Narrative [facility] - 04/05/2017 12:13 AM AUTO BODY REPAIR TECHNICIAN Drawn From Arterial Line Manav Castillo M.D. LAB BLOOD ADD-ON Performing Organization Address City/State/ZIP Code Phon e Number [facility] - [address] [place], [place] [address] [facility] (ABNORMAL) Glucose, POCT (04/04/2017 4:50 PM AUTO BODY REPAIR TECHNICIAN) Patholo gist Method Time Signature Glucose, 161 (H) 70 - 140 [facility] POCT, B MG/DL LABORATORIES - [facility] Sample Site, Capillary [facility] Blood Gas, LABORATORIES - POCT [facility] Specimen Anatomical Collection Method Collection Time Receive d Time (Source) Location / / Volume Laterality 04/04/2017 4:50 PM 7 4:50 AUTO BODY REPAIR TECHNICIAN PM AUTO BODY REPAIR TECHNICIAN Historical Provider LAB POCT ORDERABLES-MANUAL Performing Organization Address City/[facility]/ZIP [facility] Phon e Number [facility] LABORATORIES - [address] [address] [facility] (ABNORMAL) Glucose, POCT (04/04/2017 3:02 PM AUTO BODY REPAIR TECHNICIAN) [facility] Method Time Signature Glucose, POCT, 176 (H) 70 - 140 [facility] B MG/DL LABORATORIES - [facility] Specimen Anatomical Collection Method Collection Time Receive d Time (Source) Location / / Volume Laterality 04/04/2017 3:02 PM 7 3:02 AUTO BODY REPAIR TECHNICIAN PM AUTO BODY REPAIR TECHNICIAN Historical Provider LAB POCT ORDERABLES-MANUAL Performing Organization Address City/[facility] Phon e Number [facility] LABORATORIES - [address] [address] [facility] ECG 12 Lead (04/04/2017 2:34 PM AUTO BODY REPAIR TECHNICIAN) Specimen (Source) Anatomical Collection Method Collection Time Re ceived Time Location / / Volume Laterality 04/04/2017 2:34 PM AUTO BODY REPAIR TECHNICIAN Narrative [facility] CONVERSION - 04/04/2017 2:4 0 PM AUTO BODY REPAIR TECHNICIAN 04Apr2017 14:34 VENTRICULAR RATE 80 Normal sinus rhythm Left atrial enlargement Right bundle branch block Prolonged QT When compared with ECG of 04-MAR-2017 07 :18, QT has lengthened [id number]^RAYO BONILLA^SUNIL Procedure Note Sunil Meier M.D., Ph.D. - 8 04Apr2017 14:34 VENTRICULAR RATE 80 Normal sinus rhythm Left atrial enlargement Right bundle branch block Prolonged QT When compared with ECG of 04-MAR-2017 07 :18, QT has lengthened [id number]^RAYO BONILLA^SUNIL Manav Castillo M.D. ECG ORDERABLES Performing Organization Address City/[facility]/ZIP Code Phon e Number [facility] CON[facility] V&IRAD Vascular & Intervention (04/04/2017 1:47 PM AUTO BODY REPAIR TECHNICIAN) Anatomical Region Laterality Modality N/A X-Ray Angiography Specimen (Source) Anatomical Collection Method Collection Time Re ceived Time Location / / Volume Laterality 04/04/2017 1:47 PM AUTO BODY REPAIR TECHNICIAN Narrative 04/05/2017 8:21 AM AUTO BODY REPAIR TECHNICIAN 04-Apr-2017 13:47:00 ??Exam: V&IRAD Vascular & Intervention Indications: Diagnosis: ??Critical limb ischemia; non healing left toe ulcer Indication: Improve healing Procedure: ??Left Femoral endarterectomy , patch angioplasty/interposition graft with/without profundoplasty (proceed as indicated); Diagnostic Left lower extremity angiogram; Endovascular Left iliac and/or femoral ? and/or popliteal and /or tibial artery angioplasty/stent. ?(Estimated Room Time: ??6:58 + 0:30 = 7:28) ORIGINAL REPORT - 05-Apr-2017 08:21:00 V&IRAD Vascular & Intervention: Please see dictated Operative Note of sa me date in [facility] LastWord. Electronically signed by: ?? no valid signature 05-Apr-2017 08:21 Procedure Note Kemar Velásquez M.B.B.S. - 08/10/2017Forma tting of this note might be different from the original. 04-Apr-2017 13:47:00 Exam: V&IRAD Vascul ar & Intervention Indications: Diagnosis: Critical limb is chemia; non healing left toe ulcer Indication: Improve healing Procedure: Left Femoral endarterectomy, patch angioplasty/interposition graft with/without profundoplasty (proceed as indicated); Diagnostic Left lower extremity angiogram; Endovascular Left iliac and/or femoral and/or popliteal and /or tibial artery angioplasty/stent. (Estimated Room Time: 6:58 + 0:30 = 7:2 8) ORIGINAL REPORT - 05-Apr-2017 08:21:00 V&IRAD Vascular & Intervention: Please see dictated Operative Note of sa me date in [facility] LastWord. Electronically signed by: no valid signature 05-Apr-2017 08:21 Kemar DavidB.S. IMG IR PROCEDURES (ABNORMAL) ACT (Activated Clotting Time), POCT (04/04/2017 12:59 PM AUTO BODY REPAIR TECHNICIAN) [facility] gist Method Time Signature Activated 223 (H) 84 - 139 [facility] Clotting Time, SEC LABORATORIES - POCT [facility] Specimen Anatomical Collection Method Collection Time Receive d Time (Source) Location / / Volume Laterality 04/04/2017 12:59 04/04/2017 PM AUTO BODY REPAIR TECHNICIAN 12:59 PM AUTO BODY REPAIR TECHNICIAN Historical Provider LAB POCT ORDERABLES - DEVICE Performing Organization Address [facility] Phon e Number [facility] LABORATORIES - [address] Glucose, POCT (04/04/2017 12:57 PM AUTO BODY REPAIR TECHNICIAN) P athologist Signature Glucose, POCT, 123 70 - 140 [facility] B MG/DL LABORATORIES - [facility] Specimen Anatomical Collection Method Collection Time Receive d Time (Source) Location / / Volume Laterality 04/04/2017 12:57 04/04/2017 PM AUTO BODY REPAIR TECHNICIAN 12:57 PM AUTO BODY REPAIR TECHNICIAN Historical Provider LAB POCT ORDERABLES-MANUAL Performing Organization Address [facility] Phon e Number [facility] LABORATORIES - [address] (ABNORMAL) ACT (Activated Clotting Time), POCT (04/04/2017 12:29 PM AUTO BODY REPAIR TECHNICIAN) [facility] Method Time Signature Activated 245 (H) 84 - 139 [facility] Clotting Time, SEC LABORATORIES - POCT [facility] Specimen Anatomical Collection Method Collection Time Receive d Time (Source) Location / / Volume Laterality 04/04/2017 12:29 04/04/2017 PM AUTO BODY REPAIR TECHNICIAN 12:29 PM AUTO BODY REPAIR TECHNICIAN Historical Provider LAB POCT ORDERABLES - DEVICE Performing Organization Address [facility] Phon e Number [facility] LABORATORIES - [address] (ABNORMAL) ACT (Activated Clotting Time), POCT (04/04/2017 11:58 AM AUTO BODY REPAIR TECHNICIAN) [facility] Method Time Signature Activated 218 (H) 84 - 139 [facility] Clotting Time, SEC LABORATORIES - POCT [facility] Specimen Anatomical Collection Method Collection Time Receive d Time (Source) Location / / Volume Laterality 04/04/2017 11:58 04/04/2017 AM AUTO BODY REPAIR TECHNICIAN 11:58 AM AUTO BODY REPAIR TECHNICIAN Historical Provider LAB POCT ORDERABLES - DEVICE Performing Organization Address City/[facility] Phon e Number [facility] LABORATORIES - [address] [place], [place] [address] [facility] Glucose, POCT (04/04/2017 11:57 AM AUTO BODY REPAIR TECHNICIAN) P athologist Signature Glucose, POCT, 105 70 - 140 [facility] MG/DL LABORATORIES - [facility] Specimen Anatomical Collection Method Collection Time Receive d Time (Source) Location / / Volume Laterality 04/04/2017 11:57 04/04/2017 AM AUTO BODY REPAIR TECHNICIAN 11:57 AM AUTO BODY REPAIR TECHNICIAN Historical Provider LAB POCT ORDERABLES-MANUAL Performing Organization Address City/State/ZIP Code Phon e Number [facility] LABORATORIES - [address] [place], [place] [address] [facility] (ABNORMAL) ACT (Activated Clotting Time), POCT (04/04/2017 11:34 AM AUTO BODY REPAIR TECHNICIAN) [facility] Method Time Signature Activated 223 (H) 84 - 139 [facility] Clotting Time, SEC LABORATORIES - POCT [facility] Specimen Anatomical Collection Method Collection Time Receive d Time (Source) Location / / Volume Laterality 04/04/2017 11:34 04/04/2017 AM AUTO BODY REPAIR TECHNICIAN 11:34 AM AUTO BODY REPAIR TECHNICIAN Historical Provider LAB POCT ORDERABLES - DEVICE Performing Organization Address City/State/ZIP Code Phon e Number [facility] LABORATORIES - [address] [place] [address] [facility] Glucose, POCT (04/04/2017 11:33 AM AUTO BODY REPAIR TECHNICIAN) P athologist Signature Glucose, POCT, 110 70 - 140 [facility] MG/DL LABORATORIES - [facility] Specimen Anatomical Collection Method Collection Time Receive d Time (Source) Location / / Volume Laterality 04/04/2017 11:33 04/04/2017 AM AUTO BODY REPAIR TECHNICIAN 11:33 AM AUTO BODY REPAIR TECHNICIAN Historical Provider LAB POCT ORDERABLES-MANUAL Performing Organization Address City/State/ZIP Code Phon e Number [facility] LABORATORIES - [address] [place] [address] [facility] (ABNORMAL) ACT (Activated Clotting Time), POCT (04/04/2017 11:08 AM AUTO BODY REPAIR TECHNICIAN) [facility] Method Time Signature Activated 245 (H) 84 - 139 [facility] Clotting Time, SEC LABORATORIES - POCT [facility] Specimen Anatomical Collection Method Collection Time Receive d Time (Source) Location / / Volume Laterality 04/04/2017 11:08 04/04/2017 AM AUTO BODY REPAIR TECHNICIAN 11:08 AM AUTO BODY REPAIR TECHNICIAN Historical Provider LAB POCT ORDERABLES - DEVICE Performing Organization Address City/[facility]/ZIP Code Phon e Number [facility] LABORATORIES - [address] [address] [facility] Glucose, POCT (04/04/2017 11:06 AM AUTO BODY REPAIR TECHNICIAN) [facility] Method Time Signature Glucose, POCT, 97 70 - 140 [facility] MG/DL LABORATORIES - [facility] Sample Site, ARTLINE [facility] Blood Gas, LABORATORIES - POCT [facility] Specimen Anatomical Collection Method Collection Time Receive d Time (Source) Location / / Volume Laterality 04/04/2017 11:06 04/04/2017 AM AUTO BODY REPAIR TECHNICIAN 11:06 AM AUTO BODY REPAIR TECHNICIAN Historical Provider LAB POCT ORDERABLES-MANUAL Performing Organization Address City/[facility]/ZIP Code Phon e Number [facility] LABORATORIES - [address] [address] [facility] (ABNORMAL) ACT (Activated Clotting Time), POCT (04/04/2017 10:39 AM AUTO BODY REPAIR TECHNICIAN) [facility] Signature Activated 278 (H) 84 - 139 [facility] Clotting Time, SEC LABORATORIES - POCT [facility] Specimen Anatomical Collection Method Collection Time Receive d Time (Source) Location / / Volume Laterality 04/04/2017 10:39 04/04/2017 AM AUTO BODY REPAIR TECHNICIAN 10:39 AM AUTO BODY REPAIR TECHNICIAN Historical Provider LAB POCT ORDERABLES - DEVICE Performing Organization Address City/[facility]/ZIP Code Phon e Number [facility] LABORATORIES - [address] [address] [facility] Glucose, POCT (04/04/2017 10:36 AM AUTO BODY REPAIR TECHNICIAN) P athologist Signature Glucose, POCT, 109 70 - 140 [facility] MG/DL LABORATORIES - [facility] Specimen Anatomical Collection Method Collection Time Receive d Time (Source) Location / / Volume Laterality 04/04/2017 10:36 04/04/2017 AM AUTO BODY REPAIR TECHNICIAN 10:36 AM AUTO BODY REPAIR TECHNICIAN Historical Provider LAB POCT ORDERABLES-MANUAL Performing Organization Address City/[facility]/ZIP Code Phon e Number [facility] LABORATORIES - [address] [address] [facility] (ABNORMAL) Glucose, POCT (04/04/2017 9:51 AM AUTO BODY REPAIR TECHNICIAN) [facility] Method Time Signature Glucose, POCT, 59 (L) 70 - 140 [facility] B MG/DL LABORATORIES - [facility] Sample Site, ARTLINE [facility] [facility] Blood Gas, LABORATORIES - POCT [facility] Specimen Anatomical Collection Method Collection Time Receive d Time (Source) Location / / Volume Laterality 04/04/2017 9:51 AM 7 9:51 AUTO BODY REPAIR TECHNICIAN AM AUTO BODY REPAIR TECHNICIAN Historical Provider LAB POCT ORDERABLES-MANUAL Performing Organization Address City/[facility] Code Phon e Number [facility] LABORATORIES - [address] [phone] [facility] Glucose, POCT (04/04/2017 7:34 AM AUTO BODY REPAIR TECHNICIAN) [facility] Method Time Signature Glucose, 77 70 - 140 [facility] POCT, B MG/DL LABORATORIES - [facility] Sample Site, Capillary [facility] Blood Gas, LABORATORIES - POCT [facility] Specimen Anatomical Collection Method Collection Time Receive d Time (Source) Location / / Volume Laterality 04/04/2017 7:34 AM 7 7:34 AUTO BODY REPAIR TECHNICIAN AM AUTO BODY REPAIR TECHNICIAN Historical Provider LAB POCT ORDERABLES-MANUAL Performing Organization Address City/[facility] Code Phon e Number [facility] LABORATORIES - [address] [phone] [facility] (ABNORMAL) Creatinine with Estimated GFR (MDRD) (04/04/2017 7:21 AM AUTO BODY REPAIR TECHNICIAN) [facility] Method [place] Signature Creatinine 1.7 (H) 0.8 - 1.3 [facility] MG/DL LABORATORIES - [facility] eGFR 41 (L) >60 [facility] Non-Black/Afric ML/MIN/BS LABORATORIES - an [place] A [facility] eGFR-Black/Afri 49 (L) >60 [facility] can [place] ML/MIN/BS LABORATORIES - A [facility] Specimen Anatomical Collection Method Collection Time Receive d Time (Source) Location / / Volume Laterality 04/04/2017 7:21 AM 7 7:21 AUTO BODY REPAIR TECHNICIAN AM AUTO BODY REPAIR TECHNICIAN Kemar Reyes LAB BLOOD ADD-ON Performing Organization Address City/State/ZIP Code Phon e Number [facility] LABORATORIES - [address] [phone] [facility] documented in this encounter Visit Diagnoses Not on filedocumented in this encounter Additional Health Concerns Assessment Noted Time PHQ-9 Depression Total Score: 6 12/22/2016 10:26 AM CD T documented as of this encounter Care Teams Desktop Analyst Relationship Specialty Start Date End Date Irma Zacarias, JULIÁN, C.N.P. PCP - General 10/28/16 04/05/17 [address] [address] documented as of this encounter
--- OUTSIDE RECORDS SUMMARY | 2022-03-16 12:29 | XMS_ITS | Encounter Summary ---
:1950 Author Organization [facility] Address [address] [place] [address] Care Team Providers Name Role Phone Irma Zacarias APRN C.N.P. Primary Care Provider [phone] Encounter Details Date Type Department Care Team Description 03/31/2017 Hospital Encounter HX NO MAPPING Social History [...] How often do you attend zoroastrianism or quaker services? 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 documented as of this encounter Last Filed Vital Signs Vital Sign Reading Time Taken Comments Blood Pressure 175/56 03/31/2017 3:02 PM SEGMENTAL PAVER INSTALLER Pulse 64 03/31/2017 11:07 AM SEGMENTAL PAVER INSTALLER Temperature - - Respiratory Rate 16 03/31/2017 3:02 PM SEGMENTAL PAVER INSTALLER Oxygen Saturation - - Inhaled Oxygen Concentration - - Weight 74.8 kg (164 lb 14.5 oz) 03/31/2017 7:11 AM SEGMENTAL PAVER INSTALLER Height 176.5 cm (5' 9.49) 03/31/2017 7:11 AM SEGMENTAL PAVER INSTALLER Body Mass Index 24.01 03/31/2017 7:11 AM SEGMENTAL PAVER INSTALLER documented in this encounter Medications at Time [...] times injection a day before meals. lancets [facility] Dispense item 0 08/23/2014 9 covered by pt ins. 250.02 IDDM type II Tests 4 times/day. Reason: High A1c. History labile sugars, hypertension, poor control lisinopril-hydroCHLOROthi Take 1 tablet by 0 /11/201610/21/2017 azide mouth daily. (for_PRINZIDE,ZESTORETIC) 20-12.5 mg per [...] documented as of this encounter Care Teams Senior Ui Software Engineer Relationship Specialty Start Date End Date Irma Zacarias, JULIÁN, C.N.P. PCP - General 10/28/16 04/05/[address] [address] documented as of this encounter
--- OUTSIDE RECORDS SUMMARY | 2022-03-16 12:29 | XMS_ITS | Encounter Summary ---
:1950 Author Organization [facility] Address [address] [place] [address] Care Team Providers Name Role Phone Renee Catalan M.D. Primary Care Provider Reason for Visit Reason Comments Med Refill Encounter Details Date Type Department Care Team Description 04/12/2017 Refill Department of Family Medicine, Bambi Adler Med Refill [facility], in Renee Phillips M.D. [place] [address] [place] [address] [place], [place] [address] [phone] Social History Tobacco Use Types Packs/Day Years [...] week 03/25/2021 How often do you attend scientology or zoroastrianism services? 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 PCP - General Family Medicine 04/11/17 07/18/[address] [phone] documented as of this encounter
--- OUTSIDE RECORDS SUMMARY | 2022-03-16 12:29 | XMS_ITS | Encounter Summary ---
:1950 Author Organization [facility] Address [address] [place] [address] Care Team Providers Name Role Phone Renee Catalan M.D. 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 documented in this encounter Results VASCULAR IMAGE EXAM (04/19/2017 4:10 PM COMPUTER NUMERICAL CONTROL GRINDER) Specimen (Source) Anatomical Collection Method Collection Time Re ceived Time Location / / Volume Laterality 04/19/2017 4:10 PM COMPUTER NUMERICAL CONTROL GRINDER Narrative [facility] - 04/19/2017 4:12 PM COMPUTER NUMERICAL CONTROL GRINDER This order has been created and auto-finalized [...] documented as of this encounter Care Teams [place] Relationship Specialty Start Date End Date Renee Catalan M.D. PCP - General Family Medicine 04/11/17 07/18/[address] [address] documented as of this encounter
--- OUTSIDE RECORDS SUMMARY | 2022-03-16 12:29 | XMS_ITS | Encounter Summary ---
:1950 Author Organization [facility] Address [address] [place] [address] Care Team Providers Name Role Phone Irma Zacarias APRN, C.N.P. Primary Care Provider [phone] Encounter Details Date Type Department Care Team Description 03/24/2017 Refill Department of Family Medicine, Giselle Zacarias APRN, [facility], [place] [address] [place] [address] [place] [address] [phone] Social History Tobacco Use Types Packs/Day Years [...] How often do you attend baptist or congregational services? 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 - 03/24/2017 11:09 AM VISUAL MERCHANDISING COORDINATOR Refill request received from Lillie Phillips for pen needles. Pended AL MERCHANDISING COORDINATOR documented in this encounter Plan of Treatment Not on filedocumented as of this encounter Visit Diagnoses Not on filedocumented in this encounter Additional Health Concerns Assessment Noted Time PHQ-9 Depression Total Score: 6 12/22/2016 10:26 AM CD T documented as of this encounter Care Teams Industrial Illuminating Engineer Relationship Specialty Start Date End Date Irma Zacarias, JULIÁN, C.N.P. PCP - General 10/28/16 04/05/17 [address] [phone] documented as of this encounter
--- OUTSIDE RECORDS SUMMARY | 2022-03-16 12:29 | XMS_ITS | Encounter Summary ---
:1950 Author Organization [facility] Address [address] [place] [address] Care Team Providers Name Role Phone Renee Catalan M.D. Primary Care Provider [phone] Encounter Details Date Type Department Care Team Description 04/19/2017 Hospital Encounter HX RST VASC WOUND CARE Gonzalo Fragoso, NEGIN GALLEGO, C.N.P., D.N.P., M.S. Social History Tobacco Use Types Packs/Day Years [...] How often do you attend confucianist or yazidi services? 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 lancets misc Dispense item covered 0 08/23/2014 1 by [...] hr tablet Do not crush or chew. nicotine (NICOTROL) 10 Inhale as directed. 0 [...] documented as of this encounter Care Teams Waste Machine Operator Relationship Specialty Start Date End Date Renee Catalan M.D. PCP - General Family Medicine 04/11/17 07/18/[address] [address] documented as of this encounter
--- OUTSIDE RECORDS SUMMARY | 2022-03-16 12:29 | XMS_ITS | Encounter Summary ---
:1950 Author Organization [facility] Address [address] [place] [address] Care Team Providers Name Role Phone Irma Zacarias APRN C.N.P. Primary Care Provider [phone] Encounter Details Date Type Department Care Team Description 03/28/2017 Telemedicine Department of Vascular Social History Tobacco [...] How often do you attend gnosticism or evangelical services? 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 documented in this encounter Results VASCULAR IMAGE EXAM (03/28/2017 10:50 AM BIOFUELS PROCESSING TECHNICIAN) Specimen (Source) Anatomical Collection Method Collection Time Re ceived Time Location / / Volume Laterality 03/28/2017 10:49 AM BIOFUELS PROCESSING TECHNICIAN Narrative [facility] - 03/28/2017 11:09 AM BIOFUELS PROCESSING TECHNICIAN This order has been created and auto-finalized [...] documented as of this encounter Care Teams Product Analyst Relationship Specialty Start Date End Date Irma Zacarias, TRAIN SYSTEM OPERATOR, C.N.P. PCP - General 10/28/16 04/05/17 [address] [phone] documented as of this encounter
--- OUTSIDE RECORDS SUMMARY | 2022-03-16 12:30 | XMS_ITS | Encounter Summary ---
:1950 Author Organization [facility] Address [address] [place] [address] Care Team Providers Name Role Phone Elsewhere, Pcp Primary Care Provider Unavailable Encounter Details Date Type Department Care Team Description 08/19/2016 Historical Ophthalmology [facility] Chalo Barahona Jr., M.D. [address] [place], [place] [phone] (Wo rk) Social History Tobacco Use Types [...] How often do you attend protestant or advent services? 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 - 08/19/2016 9:31 AM CDT Eye General CHIEF COMPLAINT Complete Exam- NEW pt HISTORY OF PRESENT ILLNESS Decreased near and distance VA both eyes. Feels he needs new glasses. BP TODAY was 100/67. Pt states all week he has been very dizzy, unstable to walk. Saw Irma Zacarias on but states that she did not address the dizziness. Pt states he is not dizzy today but is not feeling well. IMPRESSION / REPORT / PLAN #1 Diabetes No retinopathy or macular edema #2 IOL OU Stable New glasses RTO 1 year DIAGNOSIS #1 Diabetes #2 IOL OU CDM Reports - EYEGEN Id: [id number] Status: Fnl documented in this encounter Plan of Treatment Not on filedocumented as of this encounter Visit Diagnoses Not on filedocumented in this encounter Additional Health Concerns Infection Onset Date Last Indicated Resolved Time COVID19 Pending 05/08/2020 05/08/2020 05/08/2020 2:[address] Assessment Noted Time PHQ-9 Depression Total Score: 7 08/16/2016 9:01 AM CDT documented as of this encounter Care Teams Blast Furnace Helper Relationship Specialty Start Date End Date Elsewhere, Pcp PCP - General Family Medicine 01/29/20 documented as of this encounter
--- OUTSIDE RECORDS SUMMARY | 2022-03-16 12:30 | XMS_ITS | Encounter Summary ---
:1950 Author Organization [facility] Address [address] [place] [address] Care Team Providers Name Role Phone Irma Zacarias APRN C.N.P. Primary Care Provider [phone] Encounter Details Date Type Department Care Team Description 02/14/2017 Hospital Encounter HX [facility] ULTRASOUN Renee Lowry i, M.D. [address] [place] [address] (Wo rk) Social History Tobacco Use [...] How often do you attend anabaptist or hinduism services? 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 lancets [facility] Dispense item 0 [...] Date/Time Associated Diagnosis Comme nts US LOWER EXTREMITY Routine 02/14/2017 2:06 PM Res ults for this ARTERIES BILATERAL CDT procedure are in the results section. documented in this encounter Results US Lower Extremity Arteries Bilateral (02/14/2017 2:06 PM CDT) Anatomical Region Laterality Modality Lower Extremity Bilateral Ultrasound Specimen (Source) Anatomical Collection Method Collection Time Re ceived Time Location / / Volume Laterality 02/14/2017 2:06 PM CDT Impressions 02/14/2017 2:48 PM CDT 1. Monophasic waveforms from the right f emoral to dorsalis pedis arteries suggesting proximal stenosis. N o evidence of significant stenosis in the right lower extremity. 2. Monophasic waveforms throughout the l eft lower extremity suggestive of proximal stenosis. No evidence of sig nificant stenosis in the left lower extremity. Narrative 02/14/2017 2:48 PM CDT EXAM: US Arterial Doppler Ext Lower Bila t INDICATION: suspected peripheral arteria l disease ?? COMPARISON: None. ?? FINDINGS: ?? DOPPLER WAVEFORMS: RIGHT: Common femoral: Triphasic. Femoral: Monophasic. Popliteal: Monophasic. Posterior tibial: Monophasic. Dorsalis pedis: Monophasic. Doppler: No evidence of significant sten osis by Doppler evaluation. There is extensive atheromatous plaque. LEFT: Common femoral: Monophasic. Femoral: Monophasic. Popliteal: Monophasic. Posterior tibial: Monophasic. Dorsalis pedis: Monophasic. Doppler: No evidence of significant sten osis by Doppler evaluation. There is extensive atheromatous plaque. Procedure Note Karlie Roblero M.D. - 03/09/2017Forma tting of this note might be different from the original. EXAM: US Arterial Doppler Ext Lower Bila t INDICATION: suspected peripheral arteria l disease COMPARISON: None. FINDINGS: DOPPLER WAVEFORMS: RIGHT: Common femoral: Triphasic. Femoral: Monophasic. Popliteal: Monophasic. Posterior tibial: Monophasic. Dorsalis pedis: Monophasic. Doppler: No evidence of significant sten osis by Doppler evaluation. There is extensive atheromatous plaque. LEFT: Common femoral: Monophasic. Femoral: Monophasic. Popliteal: Monophasic. Posterior tibial: Monophasic. Dorsalis pedis: Monophasic. Doppler: No evidence of significant sten osis by Doppler evaluation. There is extensive atheromatous plaque. IMPRESSION: 1. Monophasic waveforms from the right f emoral to dorsalis pedis arteries suggesting proximal stenosis. N o evidence of significant stenosis in the right lower extremity. 2. Monophasic waveforms throughout the l eft lower extremity suggestive of proximal stenosis. No evidence of sig nificant stenosis in the left lower extremity. Darrick Mesa Jr., RTenisha.M.S. IMG US PROCEDURES documented in this encounter Visit Diagnoses Not on filedocumented in this encounter Additional Health Concerns Assessment Noted Time PHQ-9 Depression Total Score: 6 12/22/2016 10:26 AM CD T documented as of this encounter Care Teams Library Manager Relationship Specialty Start Date End Date Irma Zacarias, JULIÁN, C.N.P. PCP - General 10/28/16 04/05/[address] [phone] documented as of this encounter
--- OUTSIDE RECORDS SUMMARY | 2022-03-16 12:30 | XMS_ITS | Encounter Summary ---
:1950 Author Organization [facility] Address [address] [place] [address] Care Team Providers Name Role Phone Irma Zacarias APRN C.N.P. Primary Care Provider [phone] Encounter Details Date Type Department Care Team Description 03/04/2017 Hospital Encounter HX NO MAPPING Social History [...] How often do you attend religious or sikhism services? 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 lancets [facility] Dispense item 0 08/23/2014 9 covered by [...] times a day 0 06/2703/24/2017 gauge x 16 needle rOPINIRole (for_REQUIP) 2 Take 1 tablet [...] documented as of this encounter Care Teams Customer Resolution Specialist Relationship Specialty Start Date End Date Irma Zacarias, JULIÁN, C.N.P. PCP - General 10/28/16 04/05/17 [address] [place] [phone] documented as of this encounter
--- OUTSIDE RECORDS SUMMARY | 2022-03-16 12:30 | XMS_ITS | Encounter Summary ---
:[address] [facility] Address [address] [place] [address] Care Team Providers Name Role Phone Irma Zacarias APRN C.N.P. Primary Care Provider [phone] Encounter Details Date Type Department Care Team Description 02/10/2017 Hospital Encounter HX NO MAPPING Renee Catalan M.D. [address] [place], [place] [phone] (Wo rk) Social History [...] How often do you attend christianity or sabianism services? 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 lancets [facility] Dispense item 0 08/23/2014 9 covered by pt ins. 250.02 IDDM type II Tests 4 times/day. Reason: High A1c. History labile sugars, hypertension, poor control lisinopril-hydroCHLOROthi Take 1 tablet by 0 02/11/201610/21/2017 azide mouth daily. (for_PRINZIDE,ZESTORETIC) 20-12.5 mg per tablet lisinopril-hydroCHLOROthi Take 1 tablet by 0 10/07/201505/08/2020 azide mouth daily. (PRINZIDE,ZESTORETIC) 20-12.5 mg per tablet METOPROLOL SUCCINATE ORAL Take 1 tablet by 0 2 12/201604/12/2017 mouth daily. nortriptyline Take 1 capsule by 0 12/22/20162 05/2017 (for_PAMELOR) 25 mg mouth daily. capsule OMEPRAZOLE [...] a day. documented as of this encounter Miscellaneous Notes Miscellaneous - Conversion, Historical Provider Ser - 02/10/2017 11:59 PM CDT Coding Summary-Paper Based CODING DATE: 02/23/2017 FINAL [facility] STATUS: * Discharged to Home or Self Care PAYOR: Commercial Insurance ADMIT DX: REASON FOR VISIT DX: FINAL DX: PRINCIPAL: I73.9 Peripheral vascular disease, unspecified SECONDARY: L08.9 Local infection of the skin and subcutaneous tissue, unspecified PROCEDURES DOCTOR NAME DATE NOTE: The code number assigned matches the documented diagnosis and / or procedure in the patient's chart. However, the narrative phrase printed from the coding software may appear abbreviated, or result in slightly different terminology. Coded By: VAL VENTURA Date Saved: 02/23/2017 01:51 pm Source: [facility] [employer] Document Id: [id number] documented in this encounter Plan of Treatment Not on filedocumented as of this encounter Visit Diagnoses Not on filedocumented in this encounter Additional Health Concerns Assessment Noted Time PHQ-9 Depression Total Score: 6 12/22/2016 10:26 AM CD T documented as of this encounter Care Teams Candy Bar Attendant Relationship Specialty Start Date End Date Irma Zacarias, INSULATION INSTALLER, C.N.P. PCP - General 10/28/16 04/05/17 [address] [place] [address] documented as of this encounter
--- OUTSIDE RECORDS SUMMARY | 2022-03-16 12:30 | XMS_ITS | Encounter Summary ---
:1950 Author Organization [facility] Address [address] [place] [address] Care Team Providers Name Role Phone Irma Zacarias APRN C.N.P. Primary Care Provider [phone] Encounter Details Date Type Department Care Team Description 02/28/2017 Telemedicine Department of Vascular Social History Tobacco [...] How often do you attend hinduism or hinduism services? 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 documented in this encounter Results VASCULAR IMAGE EXAM (02/28/2017 8:10 AM CDT) Specimen (Source) Anatomical Collection Method Collection Time Re ceived Time Location / / Volume Laterality 02/28/2017 8:09 AM CDT Narrative [facility] - 02/28/2017 8:12 AM CDT This order has been created and auto-finalized to support the import of images acquired without order. The clini ammy documentation to support these images can be found on the encounter dioni t produced images. Provider Not In System IMG NON RAD IMAGING PROCEDUR ES Performing Organization Address City/State/ZIP Code Phon e Number IILA IILA NA documented in this encounter Visit Diagnoses Not on filedocumented in this encounter Additional Health Concerns Assessment Noted Time PHQ-9 Depression Total Score: 6 12/22/2016 10:26 AM CD T documented as of this encounter Care Teams Care Transitions Manager Relationship Specialty Start Date End Date Irma Zacarias, JULIÁN, C.N.P. PCP - General 10/28/16 04/05/17 [address] [phone] documented as of this encounter
--- OUTSIDE RECORDS SUMMARY | 2022-03-16 12:30 | XMS_ITS | Encounter Summary ---
:1950 Author Organization [facility] Address [address] [place] [address] Care Team Providers Name Role Phone Unavailable Primary Care Provider Unavailable Encounter Details Date Type Department Care Team Description 09/20/2016 Hospital Encounter [facility]X [facility] Nato Dougherty, Shawn PRYesika, C.N.P. [address] [place], [place] [phone] (Wo rk) Social History [...] How often do you attend faith or christianity services? 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 omeprazole (PriLOSEC) 40 Take 40 mg by mouth [address] capsule every evening. aspirin 81 mg chewable Chew 1 tablet [...] injection a day before meals. [place] [facility] [place] item 0 08/23/2014 9 covered by pt ins. 250.02 IDDM type II Tests 4 times/day. Reason: High A1c. History labile sugars, hypertension, poor control lisinopril-hydroCHLOROthi Take 1 tablet by 0 11/201610/21/2017 azide mouth daily. (for_PRINZIDE,ZESTORETIC) 20-12.5 mg per tablet lisinopril-hydroCHLOROthi Take 1 tablet by 0 07/201505/08/2020 azide mouth daily. (PRINZIDE,ZESTORETIC) 20-12.5 mg per tablet OMEPRAZOLE ORAL Take 1 capsule by 0 06/22/2016 mouth daily. oxyCODONE (OxyCONTIN) 30 Take 20 mg by mouth 0 01/03/2018 mg 12 hr tablet every 12 (twelve) hours. 30 mg every am and 20 mg every evening with evening meal pen needle, diabetic 31 Three times a day 0 06/2703/24/2017 gauge x 5/16 needle documented as of this encounter Miscellaneous Notes Miscellaneous - Nato Dougherty APRN, C.N.P. - 09/20/2016 1:36 PM CDT From: NATO DOUGHERTY APRN SOLDERING MACHINE FEEDER To: ONESIMO WALTON Sent: 09/20/2016 13:36:42 CDT A1c is elevated, will discuss at your appointment on the . Results: Date Result Name Ind Value Ref Range 09/20/2016 08:38 Hgb A1c (H) 8.1 % A1C ( - <=5.6) Source: [employer] Document Id: [id number] Electronically signed by Conversion, [employer] Shipping Support Clerk [id number] at 10/26/2016 4:58 AM CDT Miscellaneous - Nato Dougherty APRN, C.N.P. - 09/20/2016 1:06 PM CDT From: NATO DOUGHERTY APRN SOLDERING MACHINE FEEDER To: ONESIMO WALTON Sent: 09/20/2016 13:06:22 CDT Lipids are stable, continue atorvastatin daily. Recheck fasting lipids in one year. Results: Date Result Name Ind Value Ref Range 09/20/2016 08:38 AST 24 unit/L (8 - 48) 09/20/2016 08:38 Cholesterol 101 mg/dL ( - <=199) 09/20/2016 08:38 Trig 141 mg/dL ( - <=149) 09/20/2016 08:38 HDL (L) 27 mg/dL (>=40 - ) 09/20/2016 08:38 LDL Calculated 46 mg/dL ( - <=129) 09/20/2016 08:38 Chol/HDL Ratio 4.00 09/20/2016 08:38 LDL/HDL 2 Source: [employer] Document Id: [id number] Electronically signed by Conversion, [facility] Shipping Support Clerk [id number] at 10/26/2016 4:58 AM CDT documented in this encounter Plan of Treatment Not on filedocumented as of this encounter Procedures Procedure Name Priority Date/Time Associated Comments Diagnosis LIPID PANEL, S Routine 09/20/2016 8:38 Results fo r this AM CDT procedure are i n the results section. ASPARTATE Routine 09/20/2016 8:38 Results for this AMINOTRANSFERASE (AST), AM CDT proc edure are in S/P the results section. HEMOGLOBIN A1C, B Routine 09/20/2016 8:38 Results for this AM CDT procedure are i n the results section. documented in this encounter Results (ABNORMAL) Lipid Panel (09/20/2016 8:38 AM CDT) P athologist Signature Cholesterol, 101 <=199 MGDL POWERCHART Total Comment: 2013 National Lipid Association recommen dations for Total Cholesterol in adults ages 18 and up: Desirable <200 mg/dL Borderline high 200-239 mg/dL High 240 mg/dL 2014 National Lipid Association recommen dations for Total Cholesterol in children ages 2 to 17. Acceptable <170 mg/dL Borderline High 170-199 mg/dL High 200 mg/dL HX HDL 27 (L) >=40 MGDL POWERCHART Comment: 2014 National Lipid Association recommen dations for HDL-C in adults ages 18 and up: Low <40 mg/dL (Men) Low <50 mg/dL (Women) 2014 National Lipid Association recommen dations for HDL-C in children ages 2 to 17. Low <40 mg/dL Borderline Low 40-45 mg/dL Acceptable >45 mg/dL Triglycerides 141 <=149 MGDL POWERCHART Comment: 2013 National Lipid Association recommen dations for Triglycerides in adults ages 18 and up: Normal <150 mg/dL Borderline High 150-199 mg/dL High 200-499 mg/dL Very High 500 mg/dL 2014 National Lipid Association recommen dations for Triglycerides in children ages 2 to 9. Acceptable <75 mg/dL Borderline High 75-99 mg/dL High 100 mg/dL 2014 National Lipid Association recommen dations for Triglycerides in children ages 10 to 17. Acceptable <90 mg/dL Borderline High 90-129 mg/dL High 130 mg/dL Trigs >400mg/dL: Triglycerides >400 mg/ dL. Calculated LDL cholesterol is not valid. Non-HDL cholesterol may be used for risk assessment when triglycerides are >400mg/dL. Calculated LDL 46 <=129 MGDL POWERCHART Comment: 2013 National Lipid Association recommen dations for LDL-C in adults ages 18 and up: Desirable <100 mg/dL Above desirable 100-129 mg/dL Borderline high 130-159 mg/dL High 160-189 mg/dL Very High 190 mg/dL 2014 National Lipid Association recommen dations for LDL-C in children ages 2 to 17. Acceptable <110 mg/dL Borderline High 110-129mg/dL High 130 mg/dL LDL-C >190mg/dL: The markedly elevated LDL level is suggestive of a genetic condition such as familial hypercholesterolemia(FH) or familial defective apolipoprotein B-100 (FDB). Molecular genetic t esting for FH and FDB is available throu [facility]: FH/ADH Genetic Reflex [place] (test ADHP). Acquired (non-genetic) causes of markedly increased LDL cholesterol include cholestatic liver disease due to the presence of LpX. If a genetic form of hypercholesterolemia is suspected, family studies including biochemical testing fo r lipids (total cholesterol,triglycerides, LDL cholesterol and HDL cholesterol) are recommended. ??Please contact the laboratory at or the on-line test catalog at [facility] for information about how to order these damion ts or to speak with a genetic counselor. Further interpretation would require clinical information. Total Cholesterol/HDL Ratio 4.00 PO WERCHART HXLDL/HDL 2 POWERCHART Specimen (Source) Anatomical Collection Method Collection Time Re ceived Time Location / / Volume Laterality Blood 09/20/2016 8:38 AM CDT Nato Dougherty APRN, C.N.P. LAB BLOOD ADD-ON Performing Organization Address City/State/ZIP Code Phon e Number POWERCHART AST (Aspartate Aminotransferase) (09/20/2016 8:38 AM CDT) Patholo gist Method Time Signature Aspartate 24 8 - 48 POWERCHART Aminotransferase UNITL (AST), S Specimen (Source) Anatomical Collection Method Collection Time Re ceived Time Location / / Volume Laterality Blood 09/20/2016 8:38 AM CDT Nato Dougherty APRN, C.N.P. LAB BLOOD ADD-ON Performing Organization Address City/State/ZIP Code Phon e Number POWERCHART (ABNORMAL) Hemoglobin A1c (09/20/2016 8:38 AM CDT) P athologist Signature Hemoglobin A1c, 8.1 (H) <=5.6 A1C POWERCHART B Specimen (Source) Anatomical Collection Method Collection Time Re ceived Time Location / / Volume Laterality Blood 09/20/2016 8:38 AM CDT Nato Dougherty APRN C.N.P. LAB BLOOD ADD-ON Performing Organization Address City/State/ZIP Code Phon e Number POWERCHART documented in this encounter Visit Diagnoses Not on filedocumented in this encounter Additional Health Concerns Assessment Noted Time PHQ-9 Depression Total Score: 7 08/16/2016 9:01 AM CDT documented as of this encounter
--- OUTSIDE RECORDS SUMMARY | 2022-03-16 12:30 | XMS_ITS | Encounter Summary ---
:1950 Author Organization [facility] Address [address] [place] [address] Care Team Providers Name Role Phone Unavailable Primary Care Provider Unavailable Encounter Details Date Type Department Care Team Description 08/24/2016 Hospital Encounter HX [facility] Nato Dougherty, Shawn PRYesika, C.N.P. [address] [place], [place] [phone] (Wo rk) Social History [...] How often do you attend baptist or synagogue services? 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 [place] [facility] [place] 0 08/23/2014 9 covered by [...] Miscellaneous - Nato Dougherty APRN, C.N.P. - 08/25/2016 11:50 AM CDT From: NATO DOUGHERTY APRN JOINTER MACHINE OPERATOR To: ONESIMO WALTON Sent: 08/25/2016 11:50:15 CDT Onesimo Colon screen is negative. Nato Results: Date Result Name Value Ref Range 08/24/2016 15:18 FIT/Fecal Occult Bld-[place] Negative (Negative - ) Source: [facility] POWERCHART Document Id: [id number] Electronically signed by Conversion, [facility] Demo Specialist [id number] at 10/26/2016 7:21 AM CDT documented in this encounter Plan of Treatment Not on filedocumented as of this encounter Procedures Procedure Name Priority Date/Time Associated Diagnosis Comme nts OCCULT BLOOD, QL, Routine 08/24/2016 3:18 PM Resu lts for this IMMUNOCHEMICAL, F CDT procedure are in the results section. documented in this encounter Results Fecal Occult Blood, Colorectal Cancer Screen, Qualitative, Immunochemical (08/24/2016 3:18 PM CDT) athologist Signature Occult Blood, Negative Negative POWERCHART Fecal Comment: Negative result. ??This test will not de tect upper gastrointestinal bleeding; the HemoQuant test (9220)should be ordered if clinically indicated. Test Performed by: [address] [address] Specimen (Source) Anatomical Collection Method Collection Time Re ceived Time Location / / Volume Laterality Stool 08/24/2016 3:18 PM CDT Nato Dougherty APRN, C.N.P. LAB BODY FLUIDS AND STOOLS ORDERABLES Performing Organization Address City/State/ZIP Code Phon e Number POWERCHART documented in this encounter Visit Diagnoses Not on filedocumented in this encounter Additional Health Concerns Assessment Noted Time PHQ-9 Depression Total Score: 7 08/16/2016 9:01 AM CDT documented as of this encounter
--- OUTSIDE RECORDS SUMMARY | 2022-03-16 12:30 | XMS_ITS | Encounter Summary ---
:1950 Author Organization [facility] Address [address] [place] [address] Care Team Providers Name Role Phone Nato Dougherty APRN, C.N.P. Primary Care Provider [phone] Encounter Details Date Type Department Care Team Description 12/28/2016 Hospital Encounter HX [facility] Nato Dougherty APRN, C.N.P. [address] [place], [place] [phone] (Wo rk) Social History [...] How often do you attend uatsdin or jew services? 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 omeprazole (PriLOSEC) 40 Take 40 mg by mouth [address] capsule every evening. amLODIPine (for_NORVASC) Take 1 tablet by 0 [...] times injection a day before meals. lancets [facility] [place] Dispense item 0 08/23/2014 9 covered by pt ins. 250.02 IDDM type II Tests 4 times/day. Reason: High A1c. History labile sugars, hypertension, poor control lisinopril-hydroCHLOROthi Take 1 tablet by 0 /11/201610/21/2017 azide mouth daily. (for_PRINZIDE,ZESTORETIC) 20-12.5 mg per tablet lisinopril-hydroCHLOROthi Take 1 tablet by 0 10/07/201505/08/2020 azide mouth daily. (PRINZIDE,ZESTORETIC) 20-12.5 mg per tablet nortriptyline Take 1 capsule by 0 12/22/201612/15 [...] this encounter Miscellaneous Notes Telephone Encounter - Conversion, Historical Provider Ser - 03/07/2017 11:12 AM CDT *Phone Message Document Contains Addenda Addendum by KIRILL SINGH LPN on March 07, 2017 11:47:20 CDT Spoke with: ( _x ) Patient ( _ ) Parent ( _ ) Spouse ( _ ) Child ( ) Other: _ Call back telephone number: [phone] Reason for Call: -Refill on Medication Chief Complaint: Notified that lisinopril was filled today. Patient/Caller response to Education/Information given: ( x ) Verbalizes understanding of instructions ( _ ) Provide intervention per provider instruction ( _ ) Reinforce information already given ( _ ) Reinforce Plan of Care ( _ ) Provide preprinted information by mail (if applicable) Source/Reference used (if applicable): Nato Dougherty, NICOLE OK to leave message on voice mail? N/A OK to send message via patient portal? N/A Patient told to expect return call: ( _ ) today ( _ ) tomorrow ( _ ) next work day Callers preferred language for Healthcare discussion: Bengali Was an cooker chip used for this call? No Other ( --_ ) From: STACEY BRUNO ( Family Med 1 Nurse) To: FINESSE Dougherty Nurse; Sent: 03/07/2017 11:12:19 CDT Subject: *Phone Message Caller is: ( x ) Patient ( ) Mother ( ) Father ( ) Spouse ( ) Daughter ( ) Son ( ) Pharmacy ( ) Other: Physician: Patient MRN #: Reason for Call: Message: Patient called in he is out of his Lisinopril, pharmacy already gave him 3 to get him to today. He can be reached at [phone] Advice/Action: Source used: ( ) Verbalizes understanding of instructions ( ) Instructed to call back if symptoms worsen or do not resolve ( ) Refused to see provider ( ) Appointment Scheduled ( ) OK to leave message on voice mail ( ) Patient told to expect return call: ( ) today ( ) tomorrow ( ) next work day ( ) Patient's email ( ) Patient told physician out of office, will call upon return call on ( ) ( ) Patient told physician out of office, routed to other physician ( ) Other ( ) Call back telephone number ( ) Call back cell phone number ( ) Source: [facility] POWERCHART Document Id: [id number] Miscellaneous - Mitali Castillo, C.M.A. - 12/28/2016 10:56 AM CDT *General Message Document Contains Addenda Addendum by MITALI CASTILLO CMA on December 29, 2016 09:17:05 CDT Patient notified. Addendum by MITALI CASTILLO CMA on December 29, 2016 09:13:43 CDT I called the patient , left a message for him to please return a call to the clinic. Addendum by NAOT DOUGHERTY APRN, CNP on December 28, 2016 12:02:08 CDT From: NATO DOUGHERTY APRN NUCLEAR MEDICINE CHIEF TECHNOLOGIST To: MITALI CASTILLO CMA; Sent: 12/28/2016 12:02:08 CDT Subject: RE: *General Message He will increase amlodipine to 10 mg daily and return for blood pressure recheck in 7-10 days. From: MITALI CASTILLO CMA To: NATO DOUGHERTY APRN NUCLEAR MEDICINE CHIEF TECHNOLOGIST; Sent: 12/28/2016 10:56:01 CDT Subject: *General Message Patient was in for B/P check today. I ask him to wait and talk to Nato Dougherty. Patient's B/P was high. B/P 150/68 Pulse 58 Five minutes later. B/P 168/79 Pulse 66 [facility] Document Id: [id number] Miscellaneous - Mitali Castillo, C.M.A. - 12/28/2016 10:04 AM CDT Ambulatory Vitals Height Weight Ambulatory Vitals Height Weight Entered On: 12/28/2016 10:05 CDT Performed On: 12/28/2016 10:04 CDT by MITALI CASTILLO CMA Vitals/Ht/Wt Peripheral Pulse Rate : 65 /min Systolic Blood Pressure : 150 mmHg (HI) Diastolic Blood Pressure : 70 mmHg NIBP Mean : 97 mmHg BP Location : Left upper extremity Blood Pressure Cuff Size : Regular Height : 173 cm(Converted to: 5 ft 8 inch(es), 68 inch(es)) MITALI CASTILLO [facility] - 12/28/2016 10:04 CDT Source: [employer] Document Id: [id number] CDT!9 Miscellaneous - Mitali Castillo, C.M.A. - 12/28/2016 9:51 AM CDT Ambulatory Vitals Height Weight Ambulatory Vitals Height Weight Entered On: 12/28/2016 9:56 CDT Performed On: 12/28/2016 9:51 CDT by MITALI CASTILLO CMA Vitals/Ht/Wt Peripheral Pulse Rate : 58 /min (LOW) Systolic Blood Pressure : 150 mmHg (HI) Diastolic Blood Pressure : 68 mmHg NIBP Mean : 95 mmHg BP Location : Left upper extremity Blood Pressure Cuff Size : Regular Height : 173 cm(Converted to: 5 ft 8 inch(es), 68 inch(es)) MITALI CASTILLO CMA - 12/28/2016 9:51 CDT Source: [facility] [employer] Document Id: [id number] CDT!9 documented in this encounter Plan of Treatment Not on filedocumented as of this encounter Visit Diagnoses Not on filedocumented in this encounter Additional Health Concerns Assessment Noted Time PHQ-9 Depression Total Score: 6 12/22/2016 10:26 AM CD T documented as of this encounter Care Teams Literacy Coordinator Relationship Specialty Start Date End Date Nato Dougherty, JULIÁN, C.N.P. PCP - General 10/28/16 04/05/[address] [phone] documented as of this encounter
--- OUTSIDE RECORDS SUMMARY | 2022-03-16 12:30 | XMS_ITS | Encounter Summary ---
:1950 Author Organization [facility] Address [address] [place] [address] Care Team Providers Name Role Phone Nato Dougherty APRN, C.N.P. Primary Care Provider [phone] Encounter Details Date Type Department Care Team Description 01/07/2017 Hospital Encounter HX [facility] FAMILY[facility] Nato Dougherty APRN, C.N.P. [address] [place], [place] [phone] (Wo rk) Social History [...] How often do you attend judaism or congregational services? 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 lancets [facility] [place] Dispense item 0 08/23/2014 9 covered by [...] of this encounter Miscellaneous Notes Miscellaneous - Mitali Méndez C.MFeiA. - 01/07/2017 10:10 AM CDT *General Message From: MITALI MÉNDEZ CMA To: NATO DOUGHERTY APRN [facility]; Sent: 01/07/2017 10:10:06 CDT Subject: *General Message Patient was in for B/P check today. Taking medications as recommended. B/P 155/69 Pulse 68 Five minutes later. B/P 147/72 Pulse 69 Source: [facility] POWERCHART Document Id: [id number] Miscellaneous - Mitali Méndez C.MFeiA. - 01/07/2017 10:03 AM CDT Ambulatory Vitals Height Weight Ambulatory Vitals Height Weight Entered On: 01/07/2017 10:03 CDT Performed On: 01/07/2017 10:03 CDT by MITALI MÉNDEZ CMA Vitals/Ht/Wt Peripheral Pulse Rate : 68 /min Systolic Blood Pressure : 155 mmHg (HI) Diastolic Blood Pressure : 69 mmHg NIBP Mean : 98 mmHg BP Location : Left upper extremity Blood Pressure Cuff Size : Regular Height : 173 cm(Converted to: 5 ft 8 inch(es), 68 inch(es)) MITALI MÉNDEZ CMA - 01/07/2017 10:03 CDT Source: [employer] Document Id: [id number] CDT!9 Miscellaneous - Mitali Méndez C.MJyoti - 01/07/2017 10:03 AM CDT Ambulatory Vitals Height Weight Ambulatory Vitals Height Weight Entered On: 01/07/2017 10:08 CDT Performed On: 01/07/2017 10:03 CDT by MITALI MÉNDEZ [facility] Vitals/Ht/Wt Peripheral Pulse Rate : 69 /min Systolic Blood Pressure : 147 mmHg (HI) Diastolic Blood Pressure : 72 mmHg NIBP Mean : 97 mmHg BP Location : Left upper extremity Blood Pressure Cuff Size : Regular Height : 173 cm(Converted to: 5 ft 8 inch(es), 68 inch(es)) MITALI MÉNDEZ [facility] - 01/07/2017 10:03 CDT Source: [employer] Document Id: [id number] CDT!9 documented in this encounter Plan of Treatment Not on filedocumented as of this encounter Visit Diagnoses Not on filedocumented in this encounter Additional Health Concerns Assessment Noted Time PHQ-9 Depression Total Score: 6 12/22/2016 10:26 AM CD T documented as of this encounter Care Teams Psychosocial Rehabilitation Counselor Relationship Specialty Start Date End Date Nato Dougherty, JULIÁN, C.N.P. PCP - General 10/28/16 04/05/17 [address], [place] [address] documented as of this encounter
--- OUTSIDE RECORDS SUMMARY | 2022-03-16 12:30 | XMS_ITS | Encounter Summary ---
:1950 Author Organization [facility] Address [address] [place] [address] Care Team Providers Name Role Phone Nato Dougherty APRN, C.N.P. Primary Care Provider [phone] Encounter Details Date Type Department Care Team Description 12/22/2016 Hospital Encounter HX [facility]ILY[facility] Nato Dougherty APRN, C.N.P. [address] [place], [place] [phone] (Wo rk) Social History [...] How often do you attend synagogue or baptist services? 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 lancets [facility] Dispense item 0 08/23/2014 9 covered by [...] documented as of this encounter Progress Notes Nato Dougherty APRN, CFeiN.P. - 12/22/2016 10:12 AM CDT Clinic Full Note CHIEF COMPLAINT/REASON FOR VISIT Diabetic check. Did labs yesterday. Was seen by pain management yesterday in [place]. They suggested being seen for elevated blood pressure and bilateral leg edema. Would like a Rx for blood pressure machine. HISTORY OF PRESENT ILLNESS Onesimo is here for diabetes recheck. A1c was drawn yesterday and has improved from 8.1 in September to 7.4. States fasting blood sugar this morning was 138. He denies episodes of hypoglycemia. Blood pressure is elevated on 2 checks today he states was also elevated at his chronic pain appointment in [place] yesterday. He is currently on metoprolol ER 200 mg daily lisinopril-hydrochlorothiazide 20- 12.5 mgdaily and amlodipine 2.5 mg daily. Depression stable on Cymbalta 30 mg twice daily. He follows in the pain clinic as an [place] for lumbar stenosis with chronic back pain. Nortriptyline 25 mg at bedtime was added yesterday. He was asked to get a vitamin-D level checked. He has erectile dysfunction, hewould like testosterone level checked. MEDICATIONS amLODIPine 2.5 mg oral tablet, 2.5 mg, 1 tab(s), PO, Daily, 2 refills aspirin 325 mg oral tablet, 325 mg, 1 tab(s), PO, Daily atorvastatin 20 mg oral tablet, 20 mg, 1 tab(s), PO, Bedtime, 3 refills colchicine 0.6 mg oral tablet, 0.6 mg, 1 tab(s), PO, Once, PRN DULoxetine 30 mg oral delayed release capsule, 30 mg, 1 cap(s), Starting on 08/20/2016, PO, 2xDay gabapentin 300 mg oral capsule, 300 mg, 1 cap(s), PO, Daily HumaLOG KwikPen 100 units/mL subcutaneous solution, 5-10 units, Subcut., 3xDayAC, 2 refills Lantus 100 units/ml subcutaneous solution, 30 units, Subcut., Bedtime lisinopril-hydroCHLOROthiazide 20mg-12.5mg oral tablet, 1 tab(s), PO, Daily Metoprolol Succinate ER 200 mg oral tablet, extended release, 200 mg, 1 tab(s), do not crush or chew, PO, Daily, 5 refills nortriptyline 25 mg oral capsule, 25 mg, 1 cap(s), PO, Daily omeprazole 20 mg oral delayed release capsule, 20 mg, 1 cap(s), PO, Daily, 11 refills OxyCONTIN 30 mg oral tablet, extended release, 30 mg, 1 tab(s), Narcotic Contract with [facility] [place] 06/28/16 (scanned), PO, q12hr, 0 refills rOPINIRole 2 mg oral tablet, 2 mg, 1 tab(s), with food, PO, 2xDay, 2 refills ALLERGIES morphine (Itching) PAST MEDICAL HISTORY Chronic Abuse Tobacco Smoking NOS Depression Major Recurrent Moderate DM2 Peripheral Neuropathy Uncontrolled Dysfunction Erectile (ED) NOS Gastroesophageal Reflux Disease (GERD ALEXANDRA) NOS Gout Arthritis Hypertension (HTN) 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 SOCIAL HISTORY Date Time: 12/22/2016 09:38 Tobacco: Smoking Status: Current every day smoker Exposure: Patient smokes Alcohol: Use: No Results Found Recreational Drugs: Use: No Results Found Type: No Results Found FAMILY HISTORY Sister:Positive: Diabetes mellitus Brother:Positive: Diabetes mellitus; Stroke Sister:Positive: Diabetes mellitus HEALTH MAINTENANCE Up-to-date. SYSTEMS REVIEW Positive for that mentioned in the History of Present Illness and Past Medical History. All other systems were reviewed and were negative. VITAL SIGNS T: 36.2 ??C (Core) HR: 68 RR: 20 BP: 168 / 64 HT: 173 cm WT: 73.65 kg BMI: 24.61 PHYSICAL EXAMINATION GENERAL: Pleasant male who appears his stated age. SKIN: Without lesions. EYES: PERRLA, EOMI intact. Fundi sharp discs. Conjunctiva and lids normal. ENT: Tympanic membranes clear bilaterally. Nasal mucosa without erythema or congestion. Mouth without erythema or exudate. LYMPH NODES: Neck: Supple, without adenopathy, no thyromegaly. Carotid pulses are equal bilaterally. BREASTS: No skin or nipple retraction. There is no palpable mass. PERIPHERAL PULSES: Femoral, dorsal, pedal and posterior tibial pulses are equal. HEART: Regular rate and rhythm without murmur. LUNGS: Clear to auscultation, there is good inspiratory effort. ABDOMEN: Soft and nontender. No palpable mass. No hepatosplenomegaly. GENITALIA: Normal penis, no discharge. No scrotal tenderness or masses. Testicles normal. No inguinal hernia. SPINE: Straight without CVA tenderness. EXTREMITIES: Warm and dry. No cyanosis or peripheral edema. MENTAL: Alert and oriented. NEUROLOGIC: Reflexes 2+ and symmetrical. LAB RESULTS Vitamin-D and testosterone levels are pending. Hgb A1c 7.4 % A1C 12/21/2016 09:20 CDT (High) IMPRESSION/REPORT/PLAN Depression Major Recurrent Moderate Stable on Cymbalta 30 mg twice daily. PHQ-9 score today 6. Ordered: OV Est Pt Level 4 - 38659 - 25 min DM2 Peripheral Neuropathy Uncontrolled Continue working on diet and exercise. Get a flu shot next month. Recheck A1c in 6 months. Ordered: OV Est Pt Level 4 - 89255 - 25 min Dysfunction Erectile (ED) NOS Worsening, checking testosterone level. I will contact him with results. 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 Increase amlodipine to 5 mg daily. Come in for blood pressure recheck in 5 days. He was given prescription for new blood pressure monitor. Low-salt diet. Ordered: OV Est Pt Level 4 - 91341 - 25 min Fpc Use Of Insulin Active Stable, no change in insulin dosages. Ordered: OV Est Pt Level 4 - 64809 - 25 min Nutritional Disorder Screening Exam Ordered: 25-Hydroxyvitamin D2 and D3-Humphreys 25HDN OV Est Pt Level 4 - 36800 - 25 min Pain Low Back (LBP) Chronic Stable, continue to follow with the Pain Clinic in [place]. Ordered: OV Est Pt Level 4 - 50588 - 25 min Orders: amLODIPine, 5 mg = 1 tab(s), PO, Daily, # 90 tab(s), 3 Refill(s), Maintenance, Pharmacy: [facility], [place], [place], New dose, does not need refill today. rOPINIRole, 2 mg = 1 tab(s), PO, 2xDay, with food, # 90 tab(s), 2 Refill(s), Maintenance, Pharmacy:[facility], [place] Hemoglobin A1c Return Visit [facility] 30 Min Vital Signs - Nurse Visit Electronically Signed By: NATO DOUGHERTY APRN, CNP On: 12/22/2016 10:23 AM Source: [facility] POWER[employer] Document Id: [id number] documented in this encounter Nursing Notes Nato Dougherty APRN, C.N.P. - 12/22/2016 10:01 AM CDT Ambulatory Patient Education The following Patient Education Materials have been given to the patient: Patient Education Materials: Ambulatory DIABETIC FOOT CARE Ambulatory Diabetic Foot Care Diabetes can lead to a number of different foot complications. Fortunately, most of these complications can be prevented with a little extra foot care. If diabetes is not well controlled, the high blood sugar can cause damage to blood vessels and result in poor circulation to the foot. When the skin does not get enough blood flow, it becomes prone to pressure sores and ulcers, which heal slowly. High blood sugar can also damage nerves, interfering with the ability to feel pain and pressure. When you cant feel your foot normally, it is easy to injure your skin, bones and joints without knowing it. For these reasons diabetes increases the risk of fungal infections, bunions and ulcers. Deep ulcers can lead to bone infection. Gangrene is the most serious foot complication of diabetes. It usuallyoccurs on the tips of the toes as blacked areas of skin. The black area is tissue. In severe cases, gangrene spreads to involve the entire toe, other toes and the entire foot. Foot or toe amputation may be required. Good foot care and blood sugar control can prevent this. Home Care Wear comfortable, proper fitting shoes. Wash your feet daily with warm water and mild soap. After drying, apply a moisturizing cream or lotion. Check your feet daily for skin breaks, blisters, swelling, or redness. Look between your toes also. Wear cotton socks and change them every day. Trim toe nails carefully and do not cut your cuticles. Strive to keep your blood sugar under control with a combination of medicines, diet and activity. If you smoke and have diabetes, it is very important that you stop. Smoking reduces blood flow to your foot. Avoid activities that increase your risk of foot injury: ?? Do not walk barefoot. ?? Do not use heating pads or hot water bottles on your feet. ?? Do not put your foot in a hot tub without first checking the temperature with your hand. 10) Schedule yearly foot exams. Follow Up with your doctor or as advised by our staff. Report any cut, puncture, scrape, other injury, blister, bunion, ingrown toenail or ulcer on your foot. Get Prompt Medical Attention if any of the following occur: -- Black skin color anywhere on the foot -- Open ulcer with pus draining from the wound -- Increasing foot or leg pain -- New areas of redness or swelling or tender areas of the foot ?? [id number] [place] [address]. All rights reserved. This information is not intended as a substitute for professional medical care. Always follow your healthcare professional's instructions. Source: [facility] POWERCHART Document Id: [id number] documented in this encounter Miscellaneous Notes Miscellaneous - Nato Dougherty APRN, C.N.P. - 12/28/2016 7:17 PM CDT From: NATO DOUGHERTY APRN CHANGE OF ADDRESS CLERK To: ONESIMO WALTON Sent: 12/28/2016 19:17:20 CDT Vitamin D level and testosterone levels are in the normal range. Results: Date Result Name Value Ref Range 12/22/2016 10:32 Testoster Free-Carrasco 4.32 ng/dL (3.67-13.9 - ) 12/22/2016 10:32 Testoster Tot-Carrasco 393 ng/dL (240-950 - ) 12/22/2016 10:32 25-Hydroxy D-Carrasco 45 ng/mL 12/22/2016 10:32 25-Hydroxy D2-Carrasco <4.0 ng/mL 12/22/2016 10:32 25-Hydroxy D3-Carrasco 45 ng/mL Source: [employer] Document Id: [id number] Miscellaneous - Kirill Singh, L.P.N. - 12/22/2016 10:26 AM CDT PHQ-9 PHQ-9 Entered On: 12/22/2016 10:26 CDT Performed On: 12/22/2016 10:26 CDT by KIRILL SINGH LPN PHQ-9 Little interest or pleasure in doing things : Several days Feeling down, depressed, or hopeless : Several days Trouble falling or staying asleep, or sleeping too much : More than half the days Feeling tired or having little energy : Several days Poor appetite or overeating : Several days Feeling bad about yourself or that you are a failure : Not at all Trouble concentrating on things : Not at all Moving or speaking slowly; restless or fidgety : Not at all Thoughts that you would be better off /hurting self : Not at all PHQ-9 Calculated Score : 6 Problems make work, home, or dealing with others : Somewhat difficult KIRILL SINGH LPN - 12/22/2016 10:26 CDT Source: [facility] Document Id: [id number] CDT!13 Miscellaneous - Nato Dougherty APRN, C.N.P. - 12/22/2016 10:01 AM CDT Ambulatory Patient Summary [facility] [address] [place], [place] [id number] Visit Information Name: ONESIMO WALTON [facility] Number: [id number] Current Date: 12/22/2016 10:01:52 Physicians Attending Provider: NATO DOUGHERTY APRN, CNP Primary Care Provider: NATO DOUGHERTY APRN, CNP ONESIMO WALTON has been given the following list of follow-up instructions, medication list,and patient education materials: Follow-up Instructions Your Medications Here is a list of your medications. It is important to take your medications as directed. Use a pillbox or chart to help remind you to take your medications. Please let your doctor or nurse know if you have problems taking your medications. Medication/Strength How to Take Indications/Special Instructions/Comments/Notes for Patient Medication Changes/Routing amLODIPine (amLODIPine 5 mg oral tablet) 1 Tablet(s), Oral, once a day This is a CHANGE Routed to [address] [address] aspirin (aspirin 325 mg oral tablet) 1 Tablet(s), Oral, once a day atorvastatin (atorvastatin 20 mg oral tablet) 1 Tablet(s), Oral, once a day (at bedtime) colchicine (colchicine 0.6 mg oral tablet) 1 Tablet(s), Oral, once as needed for Gout pain DULoxetine (DULoxetine 30 mg oral delayed release capsule) 1 cap, Oral, two times a day Starting on 08/20/2016 This is a CHANGE gabapentin (gabapentin 300 mg oral capsule) 1 cap, Oral, once a day insulin glargine (Lantus 100 units/ml subcutaneous solution) 30 units, Subcutaneous, once a day (at bedtime) insulin lispro (HumaLOG KwikPen 100 units/mL subcutaneous solution) 5-10 units, Subcutaneous, three times a day before meals lisinopril-hydroCHLOROthiazide (lisinopril-hydroCHLOROthiazide 20mg-12.5mg oral tablet) 1 Tablet(s),Oral, once a day metoprolol (Metoprolol Succinate ER 200 mg oral tablet, extended release) 1 Tablet(s), Oral, once a day do not crush or chew nortriptyline (nortriptyline 25 mg oral capsule) 1 cap, Oral, once a day omeprazole (omeprazole 20 mg oral delayed release capsule) 1 cap, Oral, once a day oxyCODONE (OxyCONTIN 30 mg oral tablet, extended release) 1 Tablet(s), Oral, every 12 hours NarcoticContract with [facility] [place] 06/28/16 (scanned) rOPINIRole (rOPINIRole 2 mg oral tablet) 1 Tablet(s), Oral, two times a day with food This is a CHANGE Stop Taking the Following Medications: Medication list as of 12-22-16 10:01 Attention: If you have any medications at home that are not on this list, DO NOT take them until youcontact your provider for clarification. Give a copy of your medication list to your primary care provider. Update your medication list any time medications or doses are changed and carry your medication list at all times in case of emergency. 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 Diabetic Foot Care Diabetes can lead to a number of different foot complications. Fortunately, most of these complications can be prevented with a little extra foot care. If diabetes is not well controlled, the high blood sugar can cause damage to blood vessels and result in poor circulation to the foot. When the skin does not get enough blood flow, it becomes prone to pressure sores and ulcers, which heal slowly. High blood sugar can also damage nerves, interfering with the ability to feel pain and pressure. When you cant feel your foot normally, it is easy to injure your skin, bones and joints without knowing it. For these reasons diabetes increases the risk of fungal infections, bunions and ulcers. Deep ulcers can lead to bone infection. Gangrene is the most serious foot complication of diabetes. It usuallyoccurs on the tips of the toes as blacked areas of skin. The black area is tissue. In severe cases, gangrene spreads to involve the entire toe, other toes and the entire foot. Foot or toe amputation may be required. Good foot care and blood sugar control can prevent this. Home Care Wear comfortable, proper fitting shoes. Wash your feet daily with warm water and mild soap. After drying, apply a moisturizing cream or lotion. Check your feet daily for skin breaks, blisters, swelling, or redness. Look between your toes also. Wear cotton socks and change them every day. Trim toe nails carefully and do not cut your cuticles. Strive to keep your blood sugar under control with a combination of medicines, diet and activity. If you smoke and have diabetes, it is very important that you stop. Smoking reduces blood flow to your foot. Avoid activities that increase your risk of foot injury: ?? Do not walk barefoot. ?? Do not use heating pads or hot water bottles on your feet. ?? Do not put your foot in a hot tub without first checking the temperature with your hand. 10) Schedule yearly foot exams. Follow Up with your doctor or as advised by our staff. Report any cut, puncture, scrape, other injury, blister, bunion, ingrown toenail or ulcer on your foot. Get Prompt Medical Attention if any of the following occur: -- Black skin color anywhere on the foot -- Open ulcer with pus draining from the wound -- Increasing foot or leg pain -- New areas of redness or swelling or tender areas of the foot ?? [id number] [facility], [address] [place] [address]. All rights reserved. This information is not intended as a substitute for professional medical care. Always follow your healthcare professional's instructions. Consider Using Patient Online Services Patient Online Services is a secure online and Mobile application that lets you: ?? View lab and test results ?? View portions of your medical record including clinical notes, immunizations and discharge summaries ?? Request an appointment or medication refill ?? Review your appointment schedule ?? Send secure messages to your care team Its easy to create an account if you dont have one. Go to [email or web address] and click on Create Your Account. Then, follow the directions to complete the online form. Kumar be asked for your [facility] number which you can find at the top of this document. Your Goals/Additional instructions: Source: [facility] POWERCHART Document Id: [id number] Miscellaneous - Nato Dougherty APRN, C.N.P. - 12/22/2016 10:01 AM CDT Ambulatory Discharge Medication List [address] [id number] Visit Information Name: YOHANA ONESIMO RICHARD [facility] Number: [id number] Current Date: 12/22/2016 10:01:51 Attending Provider: NATO DOUGHERTY APRN, CNP Primary Care Provider: NATO DOUGHERTY APRN [facility] ONESIMO WALTON RICHARD has been given the following list of medications: Your Medications It is important to take your medications as directed. Use a pill box or chart to help remind you to take your medications. Please let your doctor or nurse know if you have problems taking your medications. Medication/Strength How to Take Indications/Special Instructions/Comments/Notes for Patient Medication Changes/Routing amLODIPine (amLODIPine 5 mg oral tablet) 1 Tablet(s), Oral, once a day This is a CHANGE Routed to [address] [address] aspirin (aspirin 325 mg oral tablet) 1 Tablet(s), Oral, once a day atorvastatin (atorvastatin 20 mg oral tablet) 1 Tablet(s), Oral, once a day (at bedtime) colchicine (colchicine 0.6 mg oral tablet) 1 Tablet(s), Oral, once as needed for Gout pain DULoxetine (DULoxetine 30 mg oral delayed release capsule) 1 cap, Oral, two times a day Starting on 08/20/2016 This is a CHANGE gabapentin (gabapentin 300 mg oral capsule) 1 cap, Oral, once a day insulin glargine (Lantus 100 units/ml subcutaneous solution) 30 units, Subcutaneous, once a day (at bedtime) insulin lispro (HumaLOG KwikPen 100 units/mL subcutaneous solution) 5-10 units, Subcutaneous, three times a day before meals lisinopril-hydroCHLOROthiazide (lisinopril-hydroCHLOROthiazide 20mg-12.5mg oral tablet) 1 Tablet(s),Oral, once a day metoprolol (Metoprolol Succinate ER 200 mg oral tablet, extended release) 1 Tablet(s), Oral, once a day do not crush or chew nortriptyline (nortriptyline 25 mg oral capsule) 1 cap, Oral, once a day omeprazole (omeprazole 20 mg oral delayed release capsule) 1 cap, Oral, once a day oxyCODONE (OxyCONTIN 30 mg oral tablet, extended release) 1 Tablet(s), Oral, every 12 hours NarcoticContract with [facility] [place] 06/28/16 (scanned) rOPINIRole (rOPINIRole 2 mg oral tablet) 1 Tablet(s), Oral, two times a day with food This is a CHANGE Stop Taking the Following Medications: Medication list as of 12-22-16 10:01 Attention: If you have any medications at home that are not on this list, DO NOT take them until youcontact your provider for clarification. Give a copy of your medication list to your primary care provider. Update your medication list any time medications or doses are changed and carry your medication list at all times in case of emergency. Electronically Signed By: NATO DOUGHERTY APRN CHANGE OF ADDRESS CLERK Signed On:22-DEC-2016 10:01:33 Additional Information: Source: [facility] POWERCHART Document Id: [id number] Miscellaneous - Kirill Singh L.P.N. - 12/22/2016 9:41 AM CDT Ambulatory Vitals Height Weight Ambulatory Vitals Height Weight Entered On: 12/22/2016 9:43 CDT Performed On: 12/22/2016 9:41 CDT by KIRILL SINGH LPN Vitals/Ht/Wt Systolic Blood Pressure : 168 mmHg (>HHI) Diastolic Blood Pressure : 64 mmHg NIBP Mean : 99 mmHg BP Location : Right upper extremity Blood Pressure Cuff Size : Regular Height : 173 cm(Converted to: 5 ft 8 inch(es), 68 inch(es)) KIRILL SINGH LPN - 12/22/2016 9:41 CDT Source: [facility] POWERCHART Document Id: [id number] CDT!8 Miscellaneous - Kirill Singh L.P.N. - 12/22/2016 9:38 AM CDT Adult Child Custody Evaluator Intake/History Adult Child Custody Evaluator Intake/History Entered On: 12/22/2016 9:41 CDT Performed On: 12/22/2016 9:38 CDT by KIRILL SINGH LPN Intake Chief Complaint : Diabetic check. Did labs yesterday. Was seen by pain management yesterday in [place]. They suggested being seen for elevated blood pressure and bilateral leg edema. Would like a Rx for blood pressure machine. Temperature Core : 36.2 DegC(Converted to: 97.2 DegF) (LOW) Peripheral Pulse Rate : 68 /min Respiratory Rate : 20 /min Heart Rhythm : Regular Systolic Blood Pressure : 172 mmHg (>HHI) Diastolic Blood Pressure : 70 mmHg NIBP Mean : 104 mmHg BP Location : Right upper extremity Blood Pressure Cuff Size : Regular Height : 173 cm(Converted to: 5 ft 8 inch(es), 68 inch(es)) Actual Weight : 73.65 kg(Converted to: 162 lb 6 oz) Weight Source : Standing scale Dosing Weight Clinic : 73.65 kg Clinic BSA : 1.88 Body Mass Index : 24.61 kg/m2 KIRILL SINGH LPN - 12/22/2016 9:38 CDT General Info Languages : Icelandic Is Patient Female and 13-50 no hysterectomy : No KIRILL SINGH LPN - 12/22/2016 9:38 CDT Subjective Pain Symptoms : No KIRILL SINGH LPN - 12/22/2016 9:38 CDT Dependent Habits Exposure to Tobacco Smoke : Patient smokes Smoking Status : Current every day smoker Tobacco 2A : Yes Tobacco Use/Currently Using : Yes Tobacco Use/Last 30 Days : Yes Tobacco Use/Last 12 months : Yes Tobacco Last Use/Month : August Tobacco Last Use/Year : 2016 Type : Cigarettes: Less than 20 per day Tobacco Use/Advised to Quit : Yes KIRILL SINGH LPN - 12/22/2016 9:38 CDT Source: [facility] POWERCHART Document Id: [id number] CDT!34 documented in this encounter Plan of Treatment Not on filedocumented as of this encounter Visit Diagnoses Not on filedocumented in this encounter Additional Health Concerns Assessment Noted Time PHQ-9 Depression Total Score: 6 12/22/2016 10:26 AM CD T documented as of this encounter Care Teams Supervisor Twisting Department Relationship Specialty Start Date End Date Nato Dougherty, JULIÁN, C.N.P. PCP - General 10/28/16 04/05/17 [address] [phone] documented as of this encounter
--- OUTSIDE RECORDS SUMMARY | 2022-03-16 12:30 | XMS_ITS | Encounter Summary ---
:1950 Author Organization [facility] Address [address] [place] [address] Care Team Providers Name Role Phone Irma Zacarias APRN C.N.P. Primary Care Provider [phone] Encounter Details Date Type Department Care Team [...] week 03/25/2021 How often do you attend yazidism or pentecostal services? 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 documented in this encounter Results VASCULAR IMAGE EXAM (02/28/2017 8:35 AM CDT) Specimen (Source) Anatomical Collection Method Collection Time Re ceived Time Location / / Volume Laterality 02/28/2017 8:34 AM CDT Narrative [facility] - 02/28/2017 8:36 AM CDT This order has been created and auto-finalized to support the import of images acquired without order. The clini ammy documentation to support these images can be found on the encounter dioni t produced images. Provider Not In System IMG NON RAD IMAGING PROCEDUR ES Performing Organization Address City/State/ZIP Code Phon e Number IIKS IIKS NA documented in this encounter Visit Diagnoses Not on filedocumented in this encounter Additional Health Concerns Assessment Noted Time PHQ-9 Depression Total Score: 6 12/22/2016 10:26 AM CD T documented as of this encounter Care Teams Automobile Body Repair Supervisor Relationship Specialty Start Date End Date Irma Zacarias, JULIÁN, C.N.P. PCP - General 10/28/16 04/05/17 [address] [phone] documented as of this encounter
--- OUTSIDE RECORDS SUMMARY | 2022-03-16 12:30 | XMS_ITS | Encounter Summary ---
:1950 Author Organization [facility] Address [address] [place] [address] Care Team Providers Name Role Phone Nato Dougherty APRN C.N.P. Primary Care Provider [phone] Encounter Details Date Type Department Care Team Description 02/10/2017 Hospital Encounter HX [facility] FAMILYPRA Cheri Santo M.D. [address] [place] [phone] (Wo rk) Social History Tobacco Use [...] How often do you attend confucianism or scientologist services? 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 lancets [facility] [...] documented as of this encounter Progress Notes Cheri Catalan M.D. - 02/10/2017 10:26 AM CDT [id number] CHIEF COMPLAINT/ REASON FOR VISIT Discuss leg cramps. HISTORY OF PRESENT ILLNESS Onesimo is a 67 year old male who presents to the clinic today to discuss leg cramps. He is seen today with the assistance of my medical student, Louie Buckley. He has difficulty with bilateral leg pain for the last 9 months with worsening pain in the lower legs over the past couple months. He has been following and receiving treatment from [facility] in [place]. The provider he sees [facility] has been treating his leg pain with OxyContin 30 mg twice daily. He states that he was also found to have trouble with his low back and was treated with spinal injections which have been helpful with the pain in his upper legs. Nothing seems to help the pain in his lower legs. His painspecialist thought he may benefit from being seen by cardiology and physical therapy. Onesimo describes the pain in his lower legs as a cramping and throbbing pain. The pain seems to be worse on the left. The pain worsens with walking. He can walk a short distance, across his yard to his mailbox and then needs to rest due to the pain in his lower legs. It takes between 10-20 minutes for the pain to improve. Over the last three weeks his left leg has been swelling off and on. Today it is slightly swollen. Onesimo has tried wearing compression stockings which seem to make the pain worse. He has also alternated with icing and applying heat to his legs. A couple months ago his left great toenail became loose and snagged on clothing. When this happened Onesimo tore the nail completely off himself. The nailbed has some dried crusty blood with purulent material. He also has ulceration on his left leg that has been present for a couple months. Onesimo does have type II diabetes mellitus and checks his blood sugar 3-4 times a day. He finds hisblood sugars are usually 150 or lower. At night when he is lying in bed he wheezes. He denies any chest pain or pressure. No abdominal cramps or change in bowel habits. No recent illness including cough, sore throat, runny/stuffy nose or fever. The patient denies any additional questions or concerns at this time. MEDICATIONS Post-visit Medication Reconciliation Reviewed and are as outlined in the EMR dated 02/11/2017. 1. Cipro 750 mg, 1 tablet, PO, b.i.d. for 10 days, prescribed today. 2. Clindamycin 300 mg, 1 capsule, PO, q6hr for 10 days, prescribed today. 3. Amlodipine 10 mg, 1 tablet, PO, daily. 4. Aspirin 325 mg, 1 tablet, PO, daily. 5. Atorvastatin 20 mg, 1 tablet, PO, bedtime. 6. Colchicine 0.6 mg, 1 tablet, PO, once PRN gout pain. 7. Duloxetine 30 mg, 1 capsule, PO, b.i.d. 8. Gabapentin 300 mg, 1 capsule, PO, daily. 9. Lantus 30 units, subcut, bedtime. 10. Humalog Kwik Pen 5-10 units, subcut, t.i.d. 11. Lisinopril-Hydrochlorothiazide 20 mg-12.5 mg, 1 tablet, PO, daily. 12. Metoprolol succinate ER 200 mg, 1 tablet, PO, daily. 13. Nortriptyline 25 mg, 1 capsule, PO, daily. 14. Omeprazole 20 mg, 1 capsule, PO, daily. 15. OxyContin 30 mg, 1 tablet, PO, q12hr. 16. Ropinirole 2 mg, 1 tablet, PO, b.i.d. with food. ALLERGIES Morphine - itching. SYSTEMS REVIEW Please see HPI for pertinent positives, otherwise rest of ROS negative. PAST MEDICAL/SURGICAL HISTORY 1. 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 2. Major recurrent depression. 3. Gout. 4. GERD. 5. Restless leg syndrome. 6. Hypertriglyceridemia. 7. 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 8. Erectile dysfunction. 9. Chronic tobacco abuse. 10. Stenosis of the lumbar spine. 11. Chronic low back pain. 12. Bilateral cataract extraction and intraocular lens placement, 10/2007. 13. Arthroscopy of right shoulder. 14. Bilateral carpal tunnel release, 2001. SOCIAL HISTORY [place]. FAMILY HISTORY Mother at 91 of old age; she has a history of dementia. Father at age 74 of unknown cause. He has two sisters with diabetes mellitus. Brother with diabetes mellitus and history of stroke. No family history of heart attack. PREVENTIVE SERVICES Tobacco use: yes, current smoker (smokes between ?? to ?? of a pack per day). VITAL SIGNS HEIGHT: 173 cm. WEIGHT: 74 kg. BMI: 24.73 kg/m2. TEMP: 36.3 Deg C. PULSE: 64 /min. RESP: 14 /min. SYSTOLIC: 128 mmHg. DIASTOLIC: 70 mmHg. PHYSICAL EXAMINATION GENERAL: Patient is alert and oriented times three, in no acute distress, good hygiene and is dressed appropriately. SKIN: There is 1.5 cm ulceration with eschar about midway to jhaveri on the left with mild surrounding redness. ENT: Tympanic membranes are normal bilaterally. Oropharynx is without erythema or exudate. Nasal mucosa is without injection. NECK: Carotid bruit on left. HEART: Regular rate and rhythm with 2/6 systolic murmur heard best at the left sternal border. LUNGS: Clear to auscultation. ABDOMEN: Soft and nontender with no masses. Abdominal bruit. EXTREMITIES: Mild edema of the left lower extremity to the knee to the dorsum of the foot. The left great toenail has been avulsed the base is wet with purulent discharge and some dried discharge. There are no palpable pedal or posterior tibial pulses on either foot. DIAGNOSTICS: Left great toe x-ray findings/impression per Dr. Glenn Castillo: Subcutaneous emphysema soft tissue swelling is identified along the nail. At the top of the great toe there is subtle subcortical lucency. In the proper clinical setting this could relate to early osteomyelitis. Radiograph is are not most sensitive the means of evaluating for early osteomyelitis. No fractures are apparent. IMPRESSION: Soft tissue changes and possible subcortical lucencies developing in the tuft of the distal phalanx of the left great toe. Aerobic culture of the left great toe results: pending. Abdominal aorta ultrasound ordered and pending. Left and right carotid ultrasound ordered and pending. IMPRESSION/REPORT/PLAN 1. Peripheral arterial disease. [facility]. 2. Avulsed toenail with probable underlying infection with evidence of early osteomyelitis on x-ray.X-ray results were reviewed. Prescriptions were sent to his pharmacy for Cipro 750 mg twice daily for 10 days and Clindamycin 300 mg every 6 hours for 10 days. Culture results are pending. Will refer to [facility] for further evaluation. 3. Vascular ulcer. See above. 4. Abdominal bruit. Abdominal aorta ultrasound has been ordered; he may schedule at his convenience. 5. Left carotid bruit. Will evaluate further with bilateral carotid artery ultrasound. 6. Follow up. The patient will contact the clinic with any new or worsening symptoms. ADMINISTRATIVE BILLIN Minutes spent with greater than 50% counseling and coordination of care. This document serves as a record of services personally performed by Cheri Lacy MD. It was created on their behalf by Marie Peterson, a trained medical radiation tech. The creation of this record is based on the scribe's personal observations and the provider's statements to them. This document has been parul cked and approved by the attending provider. Cheri Quiros M.D./puja Electronically Signed By: CHERI VELAZQUEZ MD On: 02/11/2017 05:17 PM Source: [facility] MHSDOLBEYNONRADSYS Document Id: [id number] documented in this encounter Nursing Notes Quyen Umaña L.P.N. - 02/10/2017 4:29 PM CDT MIMI notified Onesimo of MIMI appt in [facility] on 02/14 at [address] César Carrasco on 02/16 at 7:45 [facility] 4 floor desk 4 [facility]; [phone] Electronically Signed By: QUYEN UMAÑA LPN On: 02/10/2017 04:42 PM Source: [facility] POWERCHART Document Id: [id number] documented in this encounter Miscellaneous Notes Miscellaneous - Conversion, Historical Provider Ser - 03/07/2017 10:53 AM CDT Med Management Document Contains Addenda Addendum by NATO DOUGHERTY APRN, CNP on March 07, 2017 11:12:46 CDT From: NATO DOUGHERTY APRN, CNP Sent: 03/07/2017 11:12:46 CDT Subject: RE:Med Management Approved Order:lisinopril-hydroCHLOROthiazide (lisinopril-hydroCHLOROthiazide 20mg-12.5mg oral tablet) 1 tab(s) PO Daily Qty: 90 tab(s) Refills: 3 Substitutions Allowed Route To Pharmacy [facility] [place] Signed by NATO DOUGHERTY APRN, CNP 03/07/2017 11:12:42 From: VEE LOVING ([facility] Angiography Technologist) To: NATO DOUGHERTY APRN, CNP; Sent: 03/07/2017 10:53:22 CDT Subject: Med Management On hold pending signature Order:lisinopril-hydroCHLOROthiazide (lisinopril-hydroCHLOROthiazide 20mg-12.5mg oral tablet) 1 tab(s) PO Daily Qty: 90 tab(s) Refills: 3 [facility] [place] Document[facility] Discontinue:lisinopril-hydroCHLOROthiazide (lisinopril-hydroCHLOROthiazide 20mg- 12.5mg oral tablet) Signed by VEE LOVING 03/07/2017 10:52:46 Source: [facility] [employer] Document Id: [id number] Miscellaneous - Conversion, Historical Provider Ser - 03/02/2017 10:31 AM CDT Med Management Document Contains Addenda Addendum by NATO DOUGHERTY APRN, CNP on March 02, 2017 11:36:53 CDT From: NATO DOUGHERTY APRN, CNP Sent: 03/02/2017 11:36:53 CDT Subject: RE:Med Management Approved Order:insulin lispro (HumaLOG KwikPen 100 units/mL subcutaneous solution) 5-10 units Subcut. 3xDayAC Qty: 15 mL Refills: 2 Substitutions Allowed Route To Pharmacy [place], [place] Signed by NATO DOUGHERTY APRN, CNP 03/02/2017 11:36:49 From: LAITH TRONCOSO ([facility] Angiography Technologist) To: NATO DUOGHERTY APRN, CNP; Sent: 03/02/2017 10:31:35 CDT Subject: Med Management On hold pending signature Order:insulin lispro (HumaLOG KwikPen 100 units/mL subcutaneous solution) 5-10 units Subcut. 3xDayAC Qty: 15 mL Refills: 2 Substitutions Allowed Route To [place], [place] Source: [employer] Document Id: [id number] Miscellaneous - Arnaud Yin - 02/28/2017 1:12 PM CDT Med Management Document Contains Addenda Addendum by NATO DOUGHERTY APRN, CNP on February 28, 2017 14:38:19 CDT From: NATO DOUGHERTY APRN, CNP Sent: 02/28/2017 14:38:19 CDT Subject: RE:Med Management Approved Order:insulin glargine (Lantus 100 units/mL subcutaneous solution) 0.3 mL Subcut. Bedtime Qty: 9 mL Refills: 3 Substitutions Allowed Route To [facility] [place] Signed by NATO DOUGHERTY APRN, CNP 02/28/2017 14:38:14 From: ARNAUD YIN ([facility] Angiography Technologist) To: NATO DOUGHERTY APRN, CNP; Sent: 02/28/2017 13:12:56 CDT Subject: Med Management On hold pending signature Order:insulin glargine (Lantus 100 units/mL subcutaneous solution) 0.3 mL Subcut. Bedtime Qty: 9 mL Refills: 3 Substitutions Allowed Route To [facility] [place] Documented Discontinue:insulin glargine (Lantus 100 units/ml subcutaneous solution) Signed by ARNAUD YIN 02/28/2017 13:11:27 Source: [employer] Document Id: [id number] Miscellaneous - Cheri Catalan M.D. - 02/10/2017 12:32 PM CDT Addendum by QUYEN UMAÑA LPN on February 10, 2017 15:59:15 CDT done From: CHERI VELAZQUEZ MD To: FINESSE Lacy Nurse; Sent: 02/10/2017 12:32:48 CDT Please arrange for MIMI bilateral at D1 Source: [employer] Document Id: [id number] Miscellaneous - Quyen Umaña L.P.N. - 02/10/2017 11:04 AM CDT [employer] Intake/History [employer] Intake/History Entered On: 02/10/2017 11:07 CDT Performed On: 02/10/2017 11:04 CDT by QUYEN UMAÑA LPN Intake Chief Complaint : f/u from Pain consult in [place] Temperature Core : 36.3 DegC(Converted to: 97.3 DegF) (LOW) Peripheral Pulse Rate : 64 /min Respiratory Rate : 14 /min Systolic Blood Pressure : 128 mmHg Diastolic Blood Pressure : 70 mmHg NIBP Mean : 89 mmHg BP Location : Left upper extremity Blood Pressure Cuff Size : Large Height : 173 cm(Converted to: 5 ft 8 inch(es), 68 inch(es)) Actual Weight : 74 kg(Converted to: 163 lb 2 oz) Weight Source : Standing scale Dosing Weight Clinic : 74 kg Clinic BSA : 1.89 Body Mass Index : 24.73 kg/m2 QUYEN UMAÑA LPN - 02/10/2017 11:04 CDT General Info Information Given By : Patient Languages : Nicaraguan Is Patient Female and 13-50 no hysterectomy : No QUYEN UMAÑA LPN - 02/10/2017 11:04 CDT Subjective Pain Symptoms : Yes QUYEN UMAÑA LPN - 02/10/2017 11:04 CDT Pain Scale Pain Scale Verbal 0-10 : Open QUYEN UMAÑA LPN - 02/10/2017 11:04 CDT Pain Pain Assessment Grid Pain 1 Location : Foot QUYEN UMAÑA LPN - 02/10/2017 11:04 CDT Dependent Habits Exposure to Tobacco Smoke : Patient smokes Smoking Status : Current every day smoker Tobacco 2A : Yes Tobacco Use/Currently Using : Yes Tobacco Use/Last 30 Days : Yes Tobacco Use/Last 12 months : Yes Tobacco Last Use/Month : August Tobacco Last Use/Year : 2016 Type : Cigarettes: Less than 20 per day Tobacco Use/Advised to Quit : Yes QUYEN UMAÑA LPN - 02/10/2017 11:04 CDT [facility] POWERCH[facility] Document Id: [id number] CDT!40 documented in this encounter Plan of Treatment Not on filedocumented as of this encounter Procedures Procedure Name Priority Date/Time Associated Diagnosis Comme nts DX TOES LEFT 2 Routine 02/10/2017 12:33 PM Result s for this VIEWS CDT procedure are i n the results section. documented in this encounter Results DX Toes Left 2 Views (02/10/2017 12:33 PM CDT) Anatomical Region Laterality Modality Lower Extremity, Toes Left Radiographic Imagi ng Specimen (Source) Anatomical Collection Method Collection Time Re ceived Time Location / / Volume Laterality 02/10/2017 12:33 PM CDT Addenda Addendum by Shauna Rodriguez M.D. o n 02/10/2017 12:33 PM CDT RAD^^^OW XR Toe Great Left 02/10/2017 12:33:51 XR Toe Great Left Impressions 02/10/2017 1:13 PM CDT ??Soft tissue changes and possible subcortical lucencies developing in the tuft of the distal pha lanx of the left great toe. Narrative 02/10/2017 1:13 PM CDT EXAM: XR Toe Great Left INDICATION: possible osteomyelitis left great toe COMPARISON: None. FINDINGS: ??Subcutaneous emphysema soft tissue swelling is identified along the nail. At the top of the great toe there is subtle subcortical lucency. In the proper clini ammy setting this could relate to early osteomyelitis. Radiograph is ar e not most sensitive the means of evaluating for early osteomyelitis. N o fractures are apparent. Procedure Note Glenn Castillo / ProviderShauna M. D. - 02/24/2017 EXAM: XR Toe Great Left INDICATION: possible osteomyelitis left great toe COMPARISON: None. FINDINGS: Subcutaneous emphysema soft ti ssue swelling is identified along the nail. At the top of the great toe there is subtle subcortical lucency. In the proper clini ammy setting this could relate to early osteomyelitis. Radiograph is ar e not most sensitive the means of evaluating for early osteomyelitis. N o fractures are apparent. IMPRESSION: Soft tissue changes and poss ible subcortical lucencies developing in the tuft of the distal pha lanx of the left great toe. [place] Lopez(R), Jessica(R)(M) IMG DIAGNOSTIC IMAGING PROCEDURES documented in this encounter Visit Diagnoses Not on filedocumented in this encounter Additional Health Concerns Assessment Noted Time PHQ-9 Depression Total Score: 6 12/22/2016 10:26 AM CD T documented as of this encounter Care Teams Almond Sorter Relationship Specialty Start Date End Date Nato Dougherty, JULIÁN, C.N.P. PCP - General 10/28/16 04/05/[address] [phone] documented as of this encounter
--- OUTSIDE RECORDS SUMMARY | 2022-03-16 12:30 | XMS_ITS | Encounter Summary ---
:1950 Author Organization [facility] Address [address] [place] [address] Care Team Providers Name Role Phone Unavailable Primary Care Provider Unavailable Encounter Details Date Type Department Care Team Description 09/03/2016 Hospital Encounter HX [facility] Cheri Santo M.D. [address], [place] [phone] (Wo rk) Social History [...] How often do you attend rastafari or christian services? 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 lancets [facility] Dispense item 0 08/23/2014 9 covered by [...] 5/16 needle documented as of this encounter Progress Notes Cheri Cortes M.D. - 09/03/2016 10:46 AM CDT [id number] CHIEF COMPLAINT/ REASON FOR VISIT Left knee pain. HISTORY OF PRESENT ILLNESS Onesimo is a 66 year old male who presents to the clinic today for a 1 week history of left knee pain. He states that his left knee cap hurts quite a bit and he is swollen from his knee to his toes. Hewalks fine on smooth surfaces, but it will buckle on uneven surfaces. It has not locked up on him and he does not recall even injuring his knee although, he does recall having a bursa sac issue in the past. He states that the buckling just started. He describes the buckling as his knee not wanting to hold him up. He did not play sports when he was younger. The pain did keep him up quite a bit last night. The patient denies any additional questions or concerns at this time. MEDICATIONS Post-visit Medication Reconciliation Reviewed and are as outlined in the EMR dated 09/03/2016. 1. Naproxen 500 mg 1 tab by mouth twice daily (prescribed today). ALLERGIES Morphine causes itching. SYSTEMS REVIEW Please see HPI for pertinent positives, otherwise rest of ROS negative. PAST MEDICAL/SURGICAL HISTORY 1. Chronic kidney disease stage 3. 2. Major recurrent moderate depression. 3. Diabetes mellitus type 2. 4. Erectile dysfunction. 5. GERD. 6. Gout. 7. Essential hypertension. 8. Hypertriglyceridemia. 9. Restless legs syndrome. 10. Cataract extraction with lens placement 10/2007. 11. Carpal tunnel release 2001. 12. Shoulder arthroscopy 10/1995. PREVENTIVE SERVICES Tobacco use: yes, current every day smoker. VITAL SIGNS HEIGHT: 173 cm. WEIGHT: 72.55 kg. BMI: 24.24 kg/m2. TEMP: 36.8 Deg C. PULSE: 64 /min. RESP: 16 /min. SYSTOLIC: 130 mmHg. DIASTOLIC: 60 mmHg. PHYSICAL EXAMINATION GENERAL: Patient is alert and oriented times three, in no acute distress, good hygiene and is dressed appropriately. EXTREMITIES: Moderate swelling of the medial aspect of the left knee with tenderness over the medialjoint line. DIAGNOSTICS Left knee XR FINDINGS/IMPRESSION per Dr. Rodriguez: Medium/large left knee joint effusion. Several, probable chronic appearing osteocartilaginous loose bodies projected over the left suprapatellar recessand posterior aspect of the left knee. Mildly prominent degenerative changes of the left knee with tr icompartmental joint space narrowing. No appreciable acute osseous injury of the left knee. If pain persists consider follow-up imaging. IMPRESSION/REPORT/PLAN 1. Left knee pain, possible meniscal injury based on injury. Recommended naproxen 500 mg twice daily, ice, and VASILIY wraps. He will update me in 1 week. Further treatment plan to be determined at that time. 2. Follow up: The patient will contact the clinic with any new or worsening symptoms. ADMINISTRATIVE BILLING: Greater than 20 minutes of this 25 minute visit was spent in face to face counseling regarding all of the above. This document serves as a record of services personally performed by Cheri Lacy MD. It was created on their behalf by Juju Ibarra, a trained medical review specialist. The creation of this record is based on the scribe's personal observations and the provider's statements to them. This document has been ch ecked and approved by the attending provider. Cheri Quiros M.D./ Electronically Signed By: CHERI CORTES MD On: 10/07/2016 12:18 AM Source: [facility] MHSDOLBEYNONRADSYS Document Id: [id number] documented in this encounter Miscellaneous Notes Miscellaneous - Rock Chavez, L.P.N. - 09/03/2016 11:42 AM CDT Adult Corporate Coordinator Intake/History Adult Corporate Coordinator Intake/History Entered On: 09/03/2016 11:44 CDT Performed On: 09/03/2016 11:42 CDT by ROCK CHAVEZ LPN Intake Chief Complaint : left knee pain x 1 week Temperature Core : 36.8 DegC(Converted to: 98.2 DegF) Peripheral Pulse Rate : 64 /min Respiratory Rate : 16 /min Systolic Blood Pressure : 130 mmHg Diastolic Blood Pressure : 60 mmHg NIBP Mean : 83 mmHg BP Location : Right upper extremity Blood Pressure Cuff Size : Regular Height : 173 cm(Converted to: 5 ft 8 inch(es), 68 inch(es)) Actual Weight : 72.55 kg(Converted to: 159 lb 15 oz) Weight Source : Standing scale Dosing Weight Clinic : 72.55 kg Prosthetic device on during patient weight : No Clinic BSA : 1.87 Body Mass Index : 24.24 kg/m2 ROCK CHAVEZ LPN - 09/03/2016 11:42 CDT General Info Information Given By : Patient Preferred Communication Mode : Verbal Languages : American Is Patient Female and 13-50 no hysterectomy : No ROCK CHAVEZ LPN - 09/03/2016 11:42 CDT Subjective Pain Symptoms : Yes ROCK CHAVEZ LPN - 09/03/2016 11:42 CDT Pain Scale Pain Scale Verbal 0-10 : Open ROCK CHAVEZ LPN - 09/03/2016 11:42 CDT Pain Pain Assessment Grid Pain 1 Location : Knee Laterality : Left Intensity : 6 ROCK CHAVEZ LPN - 09/03/2016 11:42 CDT Dependent Habits Exposure to Tobacco Smoke : Patient smokes Smoking Status : Current every day smoker Tobacco 2A : Yes Tobacco Use/Currently Using : Yes Tobacco Use/Last 30 Days : Yes Tobacco Use/Last 12 months : Yes Tobacco Last Use/Month : August Tobacco Last Use/Year : 2016 Type : Cigarettes: 20-30 per day Tobacco Use/Advised to Quit : Yes ROCK CHAVEZ LPN - 09/03/2016 11:42 CDT Source: [facility] ArthaYantraCHART Document Id: [id number] CDT!44 documented in this encounter Plan of Treatment Not on filedocumented as of this encounter Procedures Procedure Name Priority Date/Time Associated Diagnosis Comme nts DX KNEE LEFT 3 Routine 09/03/2016 12:00 PM Result s for this VIEWS CDT procedure are i n the results section. documented in this encounter Results DX Knee Left 3 Views (09/03/2016 12:00 PM CDT) Anatomical Region Laterality Modality Lower Extremity, Knee Left Radiographic Imagi ng Specimen (Source) Anatomical Collection Method Collection Time Re ceived Time Location / / Volume Laterality 09/03/2016 12:00 PM CDT Addenda Addendum by Provider, Delmy Villatoro 09/03/2016 12:00 PM CDT RAD^^^OW XR Knee Left 3 views 09/03/2016 12:00:44 Impressions 09/03/2016 12:52 PM CDT Medium/large left knee joint effusion. Several, probable chronic appearing oste ocartilaginous loose bodies projected over the left suprapatellar re cess and posterior aspect of the left knee. Mildly prominent degenerative changes of the left knee with tricompartmental joint space narrowing. No appreciable acute osseous injury of t he left knee. If pain persists consider follow-up imag ing. Narrative 09/03/2016 12:52 PM CDT EXAM: ??XR Knee Left 3 views. DEMOGRAPHICS: ??66 years Male. INDICATION: ??left knee pain with buckli ng. ?? COMPARISON: ??None FINDINGS/ Procedure Note Smith Rodriguez M.D. / Provider, Adry forde M.D. - 11/01/2016 EXAM: XR Knee Left 3 views. DEMOGRAPHICS: 66 years Male. INDICATION: left knee pain with buckling . COMPARISON: None FINDINGS/IMPRESSION: Medium/large left k nee joint effusion. Several, probable chronic appearing oste ocartilaginous loose bodies projected over the left suprapatellar re cess and posterior aspect of the left knee. Mildly prominent degenerative changes of the left knee with tricompartmental joint space narrowing. No appreciable acute osseous injury of t he left knee. If pain persists consider follow-up imag ing. Dalila Lopez(R)(CT), RSony(R) IMG DIAGNOSTIC IMAGING PROCEDURES documented in this encounter Visit Diagnoses Not on filedocumented in this encounter Additional Health Concerns Assessment Noted Time PHQ-9 Depression Total Score: 7 08/16/2016 9:01 AM CDT documented as of this encounter
--- OUTSIDE RECORDS SUMMARY | 2022-03-16 12:30 | XMS_ITS | Encounter Summary ---
:1950 Author Organization [facility] Address [address] [place] [address] Care Team Providers Name Role Phone Nato Dougherty APRN, C.N.P. Primary Care Provider [phone] Encounter Details Date Type Department Care Team Description 12/21/2016 Hospital Encounter HX [facility] Nato Dougherty, Shawn GODOY, C.N.P. [address] [place] [phone] (Wo rk) Social History Tobacco Use [...] How often do you attend confucianism or scientology services? 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 [facility] Disp[facility] item 0 08/23/2014 9 covered by [...] Miscellaneous - Nato Dougherty APRN, C.N.P. - 12/21/2016 1:45 PM CDT From: NATO DOUGHERTY APRN PLIER WORKER To: ONESIMO WALTON Sent: 12/21/2016 13:45:48 CDT A1c is stable, recheck in 6 months. Results: Date Result Name Ind Value Ref Range 12/21/2016 09:20 Hgb A1c (H) 7.4 % A1C ( - <=5.6) Source: [facility] Document Id: [id number] documented in this encounter Plan of Treatment Not on filedocumented as of this encounter Visit Diagnoses Not on filedocumented in this encounter Additional Health Concerns Assessment Noted Time PHQ-9 Depression Total Score: 7 09/23/2016 11:23 AM CD T documented as of this encounter Care Teams Straw Hat Plunger Operator Relationship Specialty Start Date End Date Nato Dougherty APRN, C.N.P. PCP - General 10/28/16 04/05/17 [address] [phone] documented as of this encounter
--- OUTSIDE RECORDS SUMMARY | 2022-03-16 12:30 | XMS_ITS | Encounter Summary ---
:1950 Author Organization [facility] Address [address] [place] [address] Care Team Providers Name Role Phone Unavailable Primary Care Provider Unavailable Encounter Details Date Type Department Care Team Description 08/19/2016 Hospital Encounter HX [facility] Chalo Malloy Jr., M.D. [address] [phone] (Wo rk) Social History Tobacco [...] How often do you attend hindu or judaism services? 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 lancets [facility] [place] Dispense item 0 [...] as of this encounter Progress Notes Chalo Koenig M.D. - 08/19/2016 9:15 AM CDT [id number] The documentation for this visit is available in Synthesis IMPRESSION/REPORT/PLAN #1 Diabetes No retinopathy or macular edema #2 IOL OU Stable New glasses RTO 1 year Chalo Koenig M.D./ Electronically Signed By: CHALO KOENIG MD On: 09/19/2016 10:14 PM Source: [facility] MHSDOLBEYNONRADSYS Document Id: [id number] documented in this encounter Miscellaneous Notes Miscellaneous - Chalo Koenig M.D. - 08/19/2016 10:22 AM CDT Ambulatory Patient Summary [address] [id number] Visit Information Name: ONESIMO WALTON RICHARD [facility] Number: [id number] Current Date: 08/19/2016 10:22:21 Physicians Attending Provider: CHALO KOENIG MD Primary Care Provider: NATO DOUGHERTY APRN ADULT MINISTRIES DIRECTOR ONESIMO WALTON has been given the following [...] Instructions/Comments/Notes for Patient Medication Changes/Routing amLODIPine (amLODIPine 2.5 mg oral tablet) 1 Tablet(s), Oral, once a day aspirin (aspirin 325 mg oral tablet) 1 Tablet(s), Oral, once a day atorvastatin (atorvastatin 20 mg oral tablet) 1 Tablet(s), Oral, once a day (at bedtime) colchicine (colchicine 0.6 mg oral tablet) 1 Tablet(s), Oral, once as needed for Gout pain DULoxetine (DULoxetine 30 mg oral delayed release capsule) 1 cap, Oral, once a day Starting on 08/20/2016 FLUoxetine (FLUoxetine 10 mg oral capsule) 1 cap, Oral, once a day Currently taking 2 tabs daily for7 days. Then 1 tab daily for 7 days then stop. gabapentin (gabapentin 300 mg oral capsule) 1 cap, Oral, two times a day insulin glargine (Lantus 100 units/ml [...] a day do not crush or chew multivitamin with minerals (Centrum Silver Men's oral tablet) omeprazole (omeprazole 20 mg oral delayed release capsule) 1 cap, Oral, once a day oxyCODONE (OxyCONTIN 30 mg oral tablet, extended release) 1 Tablet(s), Oral, every 12 hours NarcoticContract with [facility] 06/28/16 (scanned) rOPINIRole (rOPINIRole 2 mg oral tablet) 1 Tablet(s), Oral, three times a day with food Stop Taking the Following Medications: Medication list as of 08-19-16 10:22 Attention: If you have any medications at home that are not on this list, DO NOT take them until youcontact your provider for clarification. Give a copy of your medication list to your primary care provider. Update your medication list any time medications or doses are changed and carry your medication list at all times in case of emergency. Electronically Signed By: CHALO KOENIG MD Signed On:19-AUG-2016 10:22:17 Your Allergies & Intolerances Substance Reaction Symptoms Category Comments morphine Itching Drug Your Problem List Problem Status Onset Comments DM2 Peripheral Neuropathy Uncontrolled Active Hypertension (HTN) Essential Primary NOS Active Depression Major Recurrent Moderate Active Gout Arthritis Active Gastroesophageal Reflux Disease (GERD ALEXANDRA) NOS Active Restless Leg Syndrome (RLS) Active Chronic Kidney Disease (CKD) Stage 3 GFR 30-59 Active Hypertriglyceridemia Active Dysfunction Erectile (ED) NOS Active Your Upcoming Appointments Date Time Location Provider 09/20/2016 08:30 [facility] 09/22/2016 09:15 [facility] Nato Dougherty CNP Attention: Contact your local Clinic if further appointment detail needed. Consider Using Patient Online Services Patient Online [...] if you dont have one. Go to [email or web address] and click on Create Your Account. Then, follow the directions to complete the online form. Youll be asked for your [facility] number which you can find at the top of this document. Your Goals/Additional instructions: Source: [facility] POWERCHART Document Id: [id number] Miscellaneous - Chalo Koenig M.D. - 08/19/2016 10:22 AM CDT Ambulatory Discharge Medication List [address] [id number] Visit Information Name: YOHANA, ONESIMO RAMOS [facility] Number: [id number] Current Date: 08/19/2016 10:22:20 Attending Provider: CHALO KOENIG MD Primary Care Provider: NATO DOUGHERTY APRN ADULT MINISTRIES DIRECTOR ONESIMO WALTON RICHARD has been given the following list of medications: Your Medications It is important to take your medications as directed. Use a pill box or chart to help remind you to take your medications. Please let your doctor or nurse know if you have problems taking your medications. Medication/Strength How to Take Indications/Special Instructions/Comments/Notes for Patient Medication Changes/Routing amLODIPine (amLODIPine 2.5 mg oral tablet) 1 Tablet(s), Oral, once a day aspirin (aspirin 325 mg oral tablet) 1 Tablet(s), Oral, once a day atorvastatin (atorvastatin 20 mg oral tablet) 1 Tablet(s), Oral, once a day (at bedtime) colchicine (colchicine 0.6 mg oral tablet) 1 Tablet(s), Oral, once as needed for Gout pain DULoxetine (DULoxetine 30 mg oral delayed release capsule) 1 cap, Oral, once a day Starting on 08/20/2016 FLUoxetine (FLUoxetine 10 mg oral capsule) 1 cap, Oral, once a day Currently taking 2 tabs daily for7 days. Then 1 tab daily for 7 days then stop. gabapentin (gabapentin 300 mg oral capsule) 1 cap, Oral, two times a day insulin glargine (Lantus 100 units/ml [...] a day do not crush or chew multivitamin with minerals (Centrum Silver Men's oral tablet) omeprazole (omeprazole 20 mg oral delayed release capsule) 1 cap, Oral, once a day oxyCODONE (OxyCONTIN 30 mg oral tablet, extended release) 1 Tablet(s), Oral, every 12 hours NarcoticContract with [facility] 06/28/16 (scanned) rOPINIRole (rOPINIRole 2 mg oral tablet) 1 Tablet(s), Oral, three times a day with food Stop Taking the Following Medications: Medication list as of 08-19-16 10:22 Attention: If you have any medications at home that are not on this list, DO NOT take them until youcontact your provider for clarification. Give a copy of your medication list to your primary care provider. Update your medication list any time medications or doses are changed and carry your medication list at all times in case of emergency. Electronically Signed By: CHALO KOENIG MD Signed On:19-AUG-2016 10:22:17 Additional Information: Source: [facility] POWERCHART Document Id: [id number] Sánchez Frias - 08/19/2016 9:30 AM CDT Quality Measures Quality Measures Entered On: 08/19/2016 9:30 CDT Performed On: 08/19/2016 9:30 CDT by SÁNCHEZ PETERSON Diabetes Date of Last Eye Exam : 08/19/2016 CDT SÁNCHEZ PETERSON - 08/19/2016 9:30 CDT [facility] Therapy[facility] Document Id: [id number] CDT!3 Sánchez Frias - 08/19/2016 9:30 AM CDT Adult Broadcast Traffic Coordinator Intake/History Adult Broadcast Traffic Coordinator Intake/History Entered On: 08/19/2016 9:48 CDT Performed On: 08/19/2016 9:30 CDT by SÁNCHEZ PETERSON Intake Ambulatory Intake Additional Information : Recheck BP 180/71 Systolic Blood Pressure : 199 mmHg (>HHI) Diastolic Blood Pressure : 67 mmHg NIBP Mean : 111 mmHg BP Location : Right upper extremity Blood Pressure Cuff Size : Regular Height : 173 cm(Converted to: 5 ft 8 inch(es), 68 inch(es)) SÁNCHEZ PETERSON - 08/19/2016 9:30 CDT General Info Languages : Kenyan Is Patient Female and 13-50 no hysterectomy : No SÁNCHEZ PETERSON - 08/19/2016 9:30 CDT Subjective Pain Symptoms : No Cardiovascular Symptoms : Dizziness SÁNCHEZ PETERSON - 08/19/2016 9:30 CDT Dependent Habits Exposure to Tobacco Smoke : Patient smokes Smoking Status : Current every day smoker Tobacco 2A : Yes Tobacco Use/Currently Using : Yes Tobacco Use/Last 30 Days : Yes Tobacco Use/Last 12 months : Yes Type : Cigarettes: Less than 20 per day Tobacco Use/Advised to Quit : No SÁNCHEZ PETERSON - 08/19/2016 9:30 CDT Source: [facility] POWERCHART Document Id: [id number] CDT!24 documented in this encounter Plan of Treatment Not on filedocumented as of this encounter Visit Diagnoses Not on filedocumented in this encounter Additional Health Concerns Assessment Noted Time PHQ-9 Depression Total Score: 7 08/16/2016 9:01 AM CDT documented as of this encounter
--- OUTSIDE RECORDS SUMMARY | 2022-03-16 12:30 | XMS_ITS | Encounter Summary ---
:1950 Author Organization [facility] Address [address] [place] [address] Care Team Providers Name Role Phone Unavailable Primary Care Provider Unavailable Encounter Details Date Type Department Care Team Description 09/23/2016 Hospital Encounter HX [facility] Nato Dougherty, WIRE LOOP MACHINE OPERATOR, C.N.P. [address] [place], [place] [phone] (Wo rk) Social History [...] How often do you attend protestant or oriental orthodox services? 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 - 09/23/2016 11:16 AM CDT Clinic Full Note CHIEF COMPLAINT/REASON FOR VISIT Diabetic check No concern HISTORY OF PRESENT ILLNESS Onesimo is here for diabetes recheck. A1c on September 20 was elevated at 8.1. States he has been takinghis Humalog insulin after he eats. He is concerned that if he is not hungry he might not eat as muchas he planned and then he will have too much insulin on board and go low. Blood sugars are typicallyless than 100 fasting in the morning. He is frequently the 200-300 two hours after eating. We discussed importance of taking Humalog insulin before eating for greatest efficacy. Lipid panel stable on September 20. Tolerating atorvastatin 20 mg daily without adverse effects. Hypertension stable on lisinopril-hydrochlorothiazide 20 mg -12.5 mg daily and amlodipine 2.5 mg daily. Depression stable on duloxetin e 30 mg daily. PHQ-9 score today 7. MEDICATIONS amLODIPine 2.5 mg oral tablet, 2.5 mg, 1 tab(s), PO, Daily, 0 refills aspirin 325 mg oral tablet, 325 mg, 1 tab(s), PO, Daily atorvastatin 20 mg oral tablet, 20 mg, 1 tab(s), PO, Bedtime, 3 refills Centrum Silver Men's oral tablet, Daily colchicine 0.6 mg oral tablet, 0.6 mg, 1 tab(s), PO, Once, PRN DULoxetine 30 mg oral delayed release capsule, 30 mg, 1 cap(s), Starting on 08/20/2016, PO, 2xDay FLUoxetine 10 mg oral capsule, 10 mg, 1 cap(s), Currently taking 2 tabs daily for 7 days. Then 1 tab daily for 7 days then stop., PO, Daily gabapentin 300 mg oral capsule, 300 mg, 1 cap(s), PO, Daily HumaLOG KwikPen 100 units/mL subcutaneous solution, 5-10 units, Subcut., 3xDayAC, 2 refills Lantus 100 units/ml subcutaneous solution, 30 units, Subcut., Bedtime lisinopril-hydroCHLOROthiazide 20mg-12.5mg oral tablet, 1 tab(s), PO, Daily Metoprolol Succinate ER 200 mg oral tablet, extended release, 200 mg, 1 tab(s), do not crush or chew, PO, Daily, 5 refills omeprazole 20 mg oral delayed release capsule, 20 mg, 1 cap(s), PO, Daily, 11 refills OxyCONTIN 30 mg oral tablet, extended release, 30 mg, 1 tab(s), Narcotic Contract with [facility] [place] 06/28/16 (scanned), PO, q12hr, 0 refills rOPINIRole 2 mg oral tablet, 2 mg, 1 tab(s), with food, PO, 3xDay, 0 refills ALLERGIES morphine (Itching) PAST MEDICAL HISTORY Chronic Abuse Tobacco Smoking NOS Depression Major Recurrent Moderate DM2 Peripheral Neuropathy Uncontrolled Dysfunction Erectile (ED) NOS Gastroesophageal Reflux Disease (GERD ALEXANDRA) NOS Gout Arthritis Hypertension (HTN) 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 SOCIAL HISTORY Date Time: 09/23/2016 10:58 Tobacco: Smoking Status: Current every day smoker [...] reviewed and were negative. VITAL SIGNS T: 36.0 ??C (Core) HR: 60 RR: 16 BP: 130 / 68 HT: 173 cm WT: 75.30 kg BMI: 25.16 PHYSICAL EXAMINATION GENERAL: Well-developed, well-nourished, in no acute distress. SKIN: Warm and dry. HEENT: TMs clear. Throat clear. NECK: Supple. No lymphadenopathy or thyromegaly. HEART: Regular rate and rhythm. S1, S2. No murmur. LUNGS: Clear to auscultation. No wheezes or rales. ABDOMEN: Soft, nontender. No hepatosplenomegaly. EXTREMITIES: Warm, dry. No peripheral edema. IMPRESSION/REPORT/PLAN Depression Major Recurrent Moderate Stable on duloxetine 30 mg daily. PHQ-9 score today 7. Ordered: OV Est Pt Level 4 - 99236 - 25 min DM2 Peripheral Neuropathy Uncontrolled A1c 8.1. Diabetes education done today , please see museum educator intake form in the EHR. We had a long discussion on administering insulin properly. He will take Humalog insulin before meals. He will start with 5 units. Test blood sugar 2 hours after eating. Can adjust Humalog up before next meal if blood sugars over 160-180. We discussed hypoglycemia and how to treat. Recheck A1c in 3 months. 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 Ordered: OV Est Pt Level 4 - 85345 - 25 min Hypertriglyceridemia Stable on atorvastatin without adverse effects. Ordered: OV Est Pt Level 4 - 42657 - 25 min Residential Use Of Insulin Active Take Humalog insulin before meals. Ordered: OV Est Pt Level 4 - 35507 - 25 min Electronically Signed By: NATO DOUGHERTY APRN, CNP On: 09/23/2016 11:23 AM Source: [facility] POWERCHART Document Id: [id number] documented in this encounter Nursing Notes Nato Dougherty APRN, C.N.P. - 09/23/2016 11:23 AM CDT Heating Fixture Tender Intake (Adult) Heating Fixture Tender Intake (Adult) Entered On: 09/23/2016 11:24 CDT Performed On: 09/23/2016 11:23 CDT by NATO DOUGHERTY APRN, CNP Assessment Program Type : Non-Program Diabetes Referring Provider : NATO DOUGHERTY APRN, CNP Special needs : None Method Used for DSME : Individual Last Educator Visit Date : 09/23/2016 CDT Diabetes Type : Type 2 19 years and older Ethnicity : White/ Diabetes Onset : 1995 Diabetes Onset At Age : 46 years Current Treatment : Insulin vial Medication Compliance : Takes meds as prescribed Time Spent With Patient : 15 Minutes NATO DOUGHERTY APRN [facility] - 09/23/2016 11:23 CDT Education Diabetes Education Grid Topics : Medications/Effectiveness - Insulin Administration, Medications/Effectiveness - Insulin Dose Adjustment, Problem Solving/Goal Setting - Treatment/Management Goals Individuals Taught : Patient Barriers to Learning : None evident Teaching Method : Explanation, Printed materials Teaching Evaluation : Verbalizes understanding NATO DOUGHERTY APRN [facility] - 09/23/2016 11:23 CDT Comprehensive Program Goals Diabetes Education Goals Grid Diabetes Education Goal #1 row Diabetes Education Goal #2 row Diabetes Education Goal #3 row Date Goal Set : 09/23/2016 CDT 09/23/2016 CDT 09/23/2016 CDT Goal : A1c less than 7-8 Annual eye exam Blood pressure less than 140/90 Related Content Area : Healthy eating Reducing risks Medication NATO DOUGHERTY APRN [facility] - 09/23/2016 11:23 CDT NATO DOUGHERTY APRN [facility] - 09/23/2016 11:23 CDT NATO DOUGHERTY APRN [facility] - 09/23/2016 11:23 CDT [facility] Document Id: [id number] CDT!36 Nato Dougherty APRN, C.N.P. - 09/23/2016 11:12 AM CDT Ambulatory Patient Education The following Patient Education Materials have been given to the patient: Patient Education Materials: Custom DIABETIC DIET Custom Diet: Diabetes Food is an important tool that you can use to control diabetes and sta y healthy. Eating well-balanced meals in the correct amounts will help you control your blood glucose levels and prevent low blood sugar reactions. It will also help you reduce the health risks of diabetes. A registered dietitian (RD) will explain the alyssia betes diet and help you plan meals and snacks that are healthy to eat. If you have any questions, do not hesitate to call the dietitian for advice. Guidelines For Success: ?? Consult with your doctor before starting a diabetes diet or weight loss program. If you have not yet consulted a dietitian, ask your doctor for a referral. ?? Select foods from the six food groups. Your dietitian will advise you on food choices within eachgroup, serving sizes and how many servings you can have at each meal. ?? Grains, beans and starchy vegetables ?? Vegetables ?? Fruit ?? Milk or yogurt ?? Meats ?? Fats, sweets and alcohol (only a small amount from this group) ?? Monitor your blood sugar levels as requested by your doctor. Take any medicine as prescribed by your doctor. ?? Learn to read nutrition labels and select appropriate portion sizes. ?? Eat only the amount of food in your meal plan. Eat about the sa me amount of food at regular times each day. Do not skip meals. Eat meals 4 to 5 hours apart, with snacks in between. ?? Limit alcohol. It raises blood sugar levels. Drink water or calorie-free diet drinks that use safe sweeteners. ?? Eat less fat to help lo wer your risk of heart disease. Use non-fat or low- fat dairy products andlean meats. Avoid fried foods. Use cooking oils that are unsaturated. ?? Talk to your seo strategist about safe sugar substitutes. ?? Avoid added salt. It can contribute to high blood pr essure, which can cause heart disease. People with diabetes already have a risk of high blood pressure and heart disease. ?? Maintain a healthy weight. If you need to lose weight, cut down on your portion sizes. But do notskip meals. Exercise is an importa nt part of any weight management program. Talk to your doctor about an exercise program that is right for you. ?? For more information about the best diet plan for you, talk with a registered dietitian (RD). To obtain a referral to an RD in your area, contact: ?? Academy of Nutrition and Dietetics www.eatright.org ?? The [place] [employer] [phone] www.diabetes.org ?? [facility], [address] [place] [address], [place] [address]. All rights reserved. This information is not intended as a substitute for professional medical care. Always follow your healthcare professional's instructions. This document has images extracted. Please consider using [employer] for all your patient education needs. Source: [facility] POWERCHART Document Id: [id number] documented in this encounter Miscellaneous Notes Miscellaneous - Sapphire Latif - 10/01/2016 9:21 AM CDT A message from your Primary Care Provider and your Care Team From: SAPPHIRE LATIF LPN To: ONESIMO WALTON RICHARD Sent: 10/01/2016 09:21:13 CDT Subject: A message from your Primary Care Provider and your Care Team Onesimo Anton [facility] Number: [phone] [place] [address] : 1950 Mr. Walton, We have developed a six-month overview of preventive and recommended services that apply to your unique health care needs. Some may be past due or may be coming due in the next three months. If youhave already scheduled any or all of these services, thank you. We recognize that this may or may not include all of your individualized health care needs; however, we are happy to help you with any and all primary care concerns you may have. Coming Due (in the next three months) Hemoglobin A1c Lab Test for Diabetes (on or soon after Dec 20, 2016) It may be possible to bundle some of the above services together to make your visit with us more convenient. Please call [phone] to schedule services that are past due or that may shortly become due (thank you if you have already done so). We will follow up in three to six months should you have more services to schedule at that time. If you have already received any of the listed past due or upcoming services outside of [facility], please call [phone] to add them to your medical record. You may want to consider contacting your health insurance company to make sure these services are covered and find out if there will be any [id number] expense. If you have any questions about the services listed above, or if you are no longer receiving care from [facility], please contact us at [phone]. Thank you for partnering to provide you with the best care possible. Thank you for choosing us, Nato Dougherty APRN, C.N.PFei and the [place] [facility], for your health care needs! Source: [facility] POWERCHART Document Id: [id number] Misestefani - Nato Dougherty APRN, C.N.P. - 09/23/2016 11:24 AM CDT Quality Measures Quality Measures Entered On: 09/23/2016 11:24 CDT Performed On: 09/23/2016 11:24 CDT by ANTO DOUGHERTY APRN, CNP Diabetes Date of Last Diabetes Education : 09/23/2016 CDT NATO DOUGHERTY APRN, CNP - 09/23/2016 11:24 CDT [facility] Document Id: [id number] CDT!3 Miscellaneous - Winter Singh L.P.N. - 09/23/2016 11:23 AM CDT PHQ-9 PHQ-9 Entered On: 09/23/2016 11:23 CDT Performed On: 09/23/2016 11:23 CDT by WINTER SINGH LPN PHQ-9 Little interest or pleasure in doing things : More than half the days Feeling down, depressed, or hopeless : More than half the days Trouble falling or staying asleep, or sleeping too much : Several days Feeling tired or having little energy : Several days Poor appetite or overeating : Not at all Feeling bad about yourself or that you are a failure : Several days Trouble concentrating on things : Not at all Moving or speaking slowly; restless or fidgety : Not at all Thoughts that you would be better off /hurting self : Not at all PHQ-9 Calculated Score : 7 Problems make work, home, or dealing with others : Somewhat difficult WINTER SINGH LPN - 09/23/2016 11:23 CDT Source: [facility] POWERCHART Document Id: [id number] CDT!13 Miscellaneous - Nato Dougherty APRN, C.N.P. - 09/23/2016 11:12 AM CDT Ambulatory Patient Summary [address] [id number] Visit Information Name: ONESIMO WALTON [facility] Number: [phone] Current Date: 09/23/2016 11:12:36 Physicians Attending Provider: NATO DOUGHERTY APRN PANELBOARD ASSEMBLER Primary Care Provider: NATO DOUGHERTY APRN [facility] ONESIMO WALTON RICHARD has been given [...] two times a day Starting on 08/20/2016 FLUoxetine (FLUoxetine [...] with minerals (Centrum Silver Men's oral tablet) once a day omeprazole (omeprazole 20 mg oral delayed release capsule) 1 cap, Oral, once a day oxyCODONE (OxyCONTIN 30 mg oral tablet, extended release) 1 Tablet(s), Oral, every 12 hours NarcoticContract with [facility] [place] 06/28/16 (scanned) rOPINIRole (rOPINIRole 2 mg oral tablet) 1 Tablet(s), Oral, three times a day with food Stop Taking the Following Medications: Medication list as of 09-23-16 11:12 Attention: If you have any medications at [...] Signed By: NATO DOUGHERTY APRN, CNP Signed On:23-SEP-2016 11:12:21 Your Allergies & Intolerances Substance Reaction Symptoms Category Comments morphine Itching Drug Your Problem List Problem Status Onset Comments DM2 Peripheral Neuropathy Uncontrolled Active Depression Major Recurrent Moderate Active Gout Arthritis Active Gastroesophageal Reflux Disease (GERD ALEXANDRA) NOS Active Restless Leg Syndrome (RLS) Active Hypertriglyceridemia Active Dysfunction Erectile (ED) NOS Active Hypertension (HTN) 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 Diet: Diabetes Food is an important tool that you can use to control diabetes and sta y healthy. Eating well-balanced meals in the correct amounts will help you control your blood glucose levels and prevent low blood sugar reactions. It will also help you reduce the health risks of diabetes. A registered dietitian (RD) will explain the alyssia sivan diet and help you plan meals and snacks that are healthy to eat. If you have any questions, do not hesitate to call the dietitian for advice. Guidelines For Success: ?? Consult with your doctor before starting a diabetes diet or weight loss program. If you have not yet consulted a dietitian, ask your doctor for a referral. ?? Select foods from the six food groups. Your dietitian will advise you on food choices within eachgroup, serving sizes and how many servings you can have at each meal. ?? Grains, beans and starchy vegetables ?? Vegetables ?? Fruit ?? Milk or yogurt ?? Meats ?? Fats, sweets and alcohol (only a small amount from this group) ?? Monitor your blood sugar levels as requested by your doctor. Take any medicine as prescribed by your doctor. ?? Learn to read nutrition labels and select appropriate portion sizes. ?? Eat only the amount of food in your meal plan. Eat about the sa me amount of food at regular times each day. Do not skip meals. Eat meals 4 to 5 hours apart, with snacks in between. ?? Limit alcohol. It raises blood sugar levels. Drink water or calorie-free diet drinks that use safe sweeteners. ?? Eat less fat to help lo wer your risk of heart disease. Use non-fat or low- fat dairy products andlean meats. Avoid fried foods. Use cooking oils that are unsaturated. ?? Talk to your seo strategist about safe sugar substitutes. ?? Avoid added salt. It can contribute to high blood pr essure, which can cause heart disease. People with diabetes already have a risk of high blood pressure and heart disease. ?? Maintain a healthy weight. If you need to lose weight, cut down on your portion sizes. But do notskip meals. Exercise is an importa nt part of any weight management program. Talk to your doctor about an exercise program that is right for you. ?? For more information about the best diet plan for you, talk with a registered dietitian (RD). To obtain a referral to an RD in your area, contact: ?? Academy of Nutrition and Dietetics www.eatright.org ?? The [place] [employer] [phone] www.diabetes.org ?? [facility], [address] [place] [address], [place] [address]. All rights reserved. This information is not [...] if you dont have one. Go to [email or web address] and click on Create Your Account. Then, follow the directions to complete the online form. Youll be asked for your [facility] number which you can find at the top of this document. Your Goals/Additional instructions: This document has images extracted. Please consider using [employer] for all your patient education needs. Source: [facility] POWERCHART Document Id: [id number] Miscellaneous - Nato Dougherty APRN, C.N.P. - 09/23/2016 11:12 AM CDT Ambulatory Discharge Medication List [address] [id number] Visit Information Name: ONESIMO WALTON [facility] Number: [phone] Current Date: 09/23/2016 11:12:35 Attending Provider: NATO DOUGHERTY APRN PANELBOARD ASSEMBLER Primary Care Provider: NATO DOUGHERTY APRN PANELBOARD ASSEMBLER ONESIMO WALTON has been given the following [...] two times a day Starting on 08/20/2016 FLUoxetine (FLUoxetine [...] with minerals (Centrum Silver Men's oral tablet) once a day omeprazole (omeprazole 20 mg oral delayed release capsule) 1 cap, Oral, once a day oxyCODONE (OxyCONTIN 30 mg oral tablet, extended release) 1 Tablet(s), Oral, every 12 hours NarcoticContract with [facility] [place] 06/28/16 (scanned) rOPINIRole (rOPINIRole 2 mg oral tablet) 1 Tablet(s), Oral, three times a day with food Stop Taking the Following Medications: Medication list as of 09-23-16 11:12 Attention: If you have any medications at [...] Signed By: NATO DOUGHERTY APRN, CNP Signed On:23-SEP-2016 11:12:21 Additional Information: Source: [facility] POWERCHART Document Id: [id number] Miscellaneous - Winter Singh L.P.N. - 09/23/2016 10:58 AM CDT Adult Oncology Coordinator Intake/History Adult Oncology Coordinator Intake/History Entered On: 09/23/2016 11:00 CDT Performed On: 09/23/2016 10:58 CDT by WINTER SINGH LPN Intake Chief Complaint : Diabetic check No concern Temperature Core : 36.0 DegC(Converted to: 96.8 DegF) (LOW) Peripheral Pulse Rate : 60 /min Respiratory Rate : 16 /min Heart Rhythm : Regular Systolic Blood Pressure : 130 mmHg Diastolic Blood Pressure : 68 mmHg NIBP Mean : 89 mmHg BP Location : Left upper extremity Blood Pressure Cuff Size : Regular Height : 173 cm(Converted to: 5 ft 8 inch(es), 68 inch(es)) Actual Weight : 75.30 kg(Converted to: 166 lb 0 oz) Weight Source : Standing scale Dosing Weight Clinic : 75.3 kg Clinic BSA : 1.9 Body Mass Index : 25.16 kg/m2 WINTER SINGH LPN - 09/23/2016 10:58 CDT General Info Information Given By : Patient Preferred Communication Mode : Verbal Languages : Kazakh Is Patient Female and 13-50 no hysterectomy : No WINTER SINGH LPN - 09/23/2016 10:58 CDT Subjective Pain Symptoms : Yes WINTER SINGH LPN - 09/23/2016 10:58 CDT Pain Scale Pain Scale Verbal 0-10 : Open WINTER SINGH LPN - 09/23/2016 10:58 CDT Pain Pain Assessment Grid Pain 1 Pain 2 Location : Hip Knee Laterality : Left Right Intensity : 5 5 Time Pattern : Constant Constant WINTER SINGH LPN - 09/23/2016 10:58 CDT WINTER SINGH LPN - 09/23/2016 10:58 CDT Dependent Habits Exposure to Tobacco Smoke : Patient smokes Smoking Status : Current every day smoker Tobacco 2A : Yes Tobacco Use/Currently Using : Yes Tobacco Use/Last 30 Days : Yes Tobacco Use/Last 12 months : Yes Tobacco Last Use/Month : August Tobacco Last Use/Year : 2016 Type : Cigarettes: Less than 20 per day Tobacco Use/Advised to Quit : Yes WINTER SINGH LPN - 09/23/2016 10:58 CDT Source: [facility] [employer] Document Id: [id number] CDT!50 documented in this encounter Plan of Treatment Not on filedocumented as of this encounter Visit Diagnoses Not on filedocumented in this encounter Additional Health Concerns Assessment Noted Time PHQ-9 Depression Total Score: 7 09/23/2016 11:23 AM CD T documented as of this encounter
--- OUTSIDE RECORDS SUMMARY | 2022-03-16 12:30 | XMS_ITS | Encounter Summary ---
:1950 Author Organization [facility] Address [address] [place] [address] Care Team Providers Name Role Phone Irma Zacarias APRN, C.N.P. Primary Care Provider Encounter Details Date Type Department Care Team Description 02/28/2017 Hospital Encounter HX [facility] VASC WOUND CARE Karli Valdovinos, NEGIN GALLEGO C.N.P., R.N. Social History Tobacco Use Types Packs/Day Years [...] How often do you attend sabianism or worship services? 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 Pulse 71 02/28/2017 7:56 AM Vital sign result CDT from Clinical No damion. Temperature - - Respiratory Rate - - Oxygen Saturation - - Inhaled Oxygen - - Concentration Weight 74.7 kg (164 lb 10.9 02/28/2017 7:55 AM Vital sign result oz) CDT from Clinical No damion. Height 175.7 cm (5' 9.17) 02/28/2017 7:55 AM Vital sign result CDT from Clinical No damion. Body Mass Index 24.2 02/28/2017 7:55 AM CDT documented in this encounter Medications [...] times injection a day before meals. lancets [facility] [place] 0 08/23/2014 9 covered by pt ins. 250.02 IDDM type II Tests 4 times/day. Reason: High A1c. History labile sugars, hypertension, poor control lisinopril-hydroCHLOROthi Take 1 tablet by 0 /11/201610/21/2017 azide mouth daily. (for_PRINZIDE,ZESTORETIC) 20-12.5 mg per tablet lisinopril-hydroCHLOROthi Take 1 tablet by 0 1007/201505/08/2020 [...] documented as of this encounter Care Teams Patient Relations Coordinator Relationship Specialty Start Date End Date Irma Zacarias APRN, C.N.P. PCP - General 10/28/16 04/05/[address] [phone] documented as of this encounter
--- OUTSIDE RECORDS SUMMARY | 2022-03-16 12:30 | XMS_ITS | Encounter Summary ---
:1950 Author Organization [facility] Address [address] [place] [address] Care Team Providers Name Role Phone Irma Zacarias APRN C.N.P. Primary Care Provider [phone] Encounter Details Date Type Department Care Team Description 02/17/2017 Hospital Encounter HX [facility] Cheri Arguello M.D. [address] [place] [address] (Wo rk) Social History Tobacco [...] How often do you attend rastafarian or yarsani services? 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 lancets [facility] [place] item 0 08/23/2014 9 covered by [...] of this encounter Miscellaneous Notes Miscellaneous - Cheri Catalan M.D. - 02/17/2017 11:23 PM CDT Addendum by ROCK FONTENOT LPN on February 18, 2017 16:46:25 CDT Spoke with: ( _x ) Patient ( _ ) Parent ( _ ) Spouse ( _ ) Child ( ) Other: _ Call back telephone number: [phone] _ Reason for Call: -ultrasound results_ Chief Complaint: patient given findings of abdominal ultrasound with no questions or concerns voicedat this time _ Patient/Caller response to Education/Information given: ( _ ) Verbalizes understanding of instructions ( _ ) Provide intervention per provider instruction ( _x ) Reinforce information already given ( _ ) Reinforce Plan of Care ( _ ) Provide preprinted information by mail (if applicable) Source/Reference used (if applicable): _patient OK to leave message on voice mail? _ OK to send message via patient portal? _ Patient told to expect return call: ( _ ) today ( _ ) tomorrow ( _ ) next work day Callers preferred language for Healthcare discussion: english_ Was an hourly sign language interpreter used for this call? _no Other ( x--_ ) return call not required From: CHERI VELAZQUEZ MD To: FB Bambi Nurse; Sent: 02/17/2017 23:23:59 CDT Please notify Onesimo that the ultrasound of the abdomen did not show any aneurysm. Source: [facility] POWERCHART Document Id: [id number] documented in this encounter Plan of Treatment Not on filedocumented as of this encounter Procedures Procedure Name Priority Date/Time Associated Diagnosis Comme nts US CAROTID Routine 02/17/2017 10:57 AM Results for this BILATERAL CDT procedure are i n the results section. US AORTA Routine 02/17/2017 10:56 AM Results for this CDT procedure are i n the results section. documented in this encounter Results US Carotid Bilateral (02/17/2017 10:57 AM CDT) Anatomical Region Laterality Modality Head and Neck Bilateral Ultrasound Specimen (Source) Anatomical Collection Method Collection Time Re ceived Time Location / / Volume Laterality 02/17/2017 10:57 AM CDT Impressions 02/17/2017 11:16 AM CDT ?? 1. Based on NASCET criteria, there is no significant carotid stenosis. Narrative 02/17/2017 11:16 AM CDT EXAM: US Carotid Duplex Bilat INDICATION: left carotid bruit ?? AGE: 67 years-old COMPARISON: None. ?? FINDINGS: Left common carotid artery has diffuse s oft atheromatous plaque without significant stenosis. No signifi cant stenosis of bilateral common or internal carotid arteries. ??I n the mid neck, bilateral vertebral arteries have normal antegrade flow. ?? Measurement of a carotid stenosis, if pr esent, is based on velocity parameters that compare the residual int ernal carotid luminal diameter with that of the normal distal ICA in ac cordance with [place] Symptomatic Carotid Endarterectomy Trial (NASCET). Procedure Note Rudy Pratt M.D. - 02/24/2017 EXAM: US Carotid Duplex Bilat INDICATION: left carotid bruit AGE: 67 years-old COMPARISON: None. FINDINGS: Left common carotid artery has diffuse s oft atheromatous plaque without significant stenosis. No signifi cant stenosis of bilateral common or internal carotid arteries. In the mid neck, bilateral vertebral arteries have normal antegrade flow. Measurement of a carotid stenosis, if pr esent, is based on velocity parameters that compare the residual int ernal carotid luminal diameter with that of the normal distal ICA in ac cordance with [place] Symptomatic Carotid Endarterectomy Trial (NASCET). IMPRESSION: 1. Based on NASCET criteria, there is no significant carotid stenosis. Stacy Wray R.V.T., JuaquinM.S. IMG US PROCEDURES US Aorta (02/17/2017 10:56 AM CDT) Anatomical Region Laterality Modality Abdomen, Pelvis N/A Ultrasound Specimen (Source) Anatomical Collection Method Collection Time Re ceived Time Location / / Volume Laterality 02/17/2017 10:56 AM CDT Impressions 02/17/2017 11:17 AM CDT ??Normal caliber abdominal aorta and bilateral common iliac arteries. Narrative 02/17/2017 11:17 AM CDT EXAM: ??US Abdominal Aorta AGE: ??67 years old. GENDER: ??Male. INDICATION: ??abdominal bruit COMPARISON: ??None. ?? FINDINGS: ?? Scattered vascular calcifications. Proximal abdominal aorta: 2.2 cm x 2.3 c m. Abdominal aorta: 1.5 cm x 1.6 cm. Distal abdominal aorta: 1.4 cm x 1.4 cm. Right common iliac artery: 0.8 cm x 0.7 cm. Left common iliac artery: 0.9 cm x 1.0 c m. Procedure Note Smith Rodriguez M.D. - 02/24/2017Forma tting of this note might be different from the original. EXAM: US Abdominal Aorta AGE: [age] years old. GENDER: Male. INDICATION: abdominal bruit COMPARISON: None. FINDINGS: Scattered vascular calcifications. Proximal abdominal aorta: 2.2 cm x 2.3 c m. Abdominal aorta: 1.5 cm x 1.6 cm. Distal abdominal aorta: 1.4 cm x 1.4 cm. Right common iliac artery: 0.8 cm x 0.7 cm. Left common iliac artery: 0.9 cm x 1.0 c m. IMPRESSION: Normal caliber abdominal aor ta and bilateral common iliac arteries. Stacy Wray R.V.T., JuaquinM.S. IMG US PROCEDURES documented in this encounter Visit Diagnoses Not on filedocumented in this encounter Additional Health Concerns Assessment Noted Time PHQ-9 Depression Total Score: 6 12/22/2016 10:26 AM CD T documented as of this encounter Care Teams Health Care Law Specialist Relationship Specialty Start Date End Date Irma Zacarias, JULIÁN, C.N.P. PCP - General 10/28/16 04/05/17 [address] [phone] documented as of this encounter
--- OUTSIDE RECORDS SUMMARY | 2022-03-16 12:30 | XMS_ITS | Encounter Summary ---
:1950 Author Organization [facility] Address [address] [place] [address] Care Team Providers Name Role Phone Irma Zacarias APRN, C.N.P. 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 [address] [place] [address] Referral ID Status Reason Start Date Expiration Date Visits Requ ested Visits Authorized [id number] Closed 02/25/2017 08/24/2017 1 1 Encounter Details Date Type Department Care Team Description 02/25/2017 Orders Only Department of Family Irma Zacarias Pur e Hyperglyceridemia; Medicine, [place] JULIÁN, C.N.P. Diabetes Mellitus Type 2 With Diabetic P olyneuropathy (HCC) Clinic, in [place], [address] [place], [place] [address] [address] [place], [place] [phone] [address] (Work) [phone] Social History Tobacco Use Types Packs/Day Years [...] How often do you attend confucianism or christianity services? 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 Plan of Treatment Scheduled Referrals Name Type Priority Associated Diagnoses Order [facility] Outpatient Referral Routine Diabetes Mellitus Type Expected: office visit 2 With Diabetic 06/20/2017 (clinic) Polyneuropathy (HCC) (Approx imate), Expires: 06/24/2022 documented as of this encounter Visit Diagnoses Diagnosis Pure Hyperglyceridemia Diabetes Mellitus Type 2 With Diabetic P olyneuropathy (HCC) documented in this encounter Additional Health Concerns Assessment Noted Time PHQ-9 Depression Total Score: 6 12/22/2016 10:26 AM CD T documented as of this encounter Care Teams Pesticide Chemist Relationship Specialty Start Date End Date Irma Zacarias, JULIÁN, C.N.P. PCP - General 10/28/16 04/05/[address] [phone] documented as of this encounter
--- OUTSIDE RECORDS SUMMARY | 2022-03-16 12:30 | XMS_ITS | Encounter Summary ---
:1950 Author Organization [facility] Address [address] [place] [address] Care Team Providers Name Role Phone Irma Zacarias APRN C.N.P. Primary Care Provider [phone] Encounter Details Date Type Department Care Team Description 02/17/2017 Hospital Encounter HX [facility] Renee Arguello M.D. [address] [place] [address] (Wo rk) Social History Tobacco [...] How often do you attend taoism or amish services? 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 lancets [facility] [place] Dispense item 0 08/23/2014 9 [...] documented as of this encounter Care Teams Position Classification Manager Relationship Specialty Start Date End Date Irma Zacarias, JULIÁN, C.N.P. PCP - General 10/28/16 04/05/17 [address], [place] [phone] documented as of this encounter
--- OUTSIDE RECORDS SUMMARY | 2022-03-16 12:30 | XMS_ITS | Encounter Summary ---
:1950 Author Organization [facility] Address [address] [place] [address] Care Team Providers Name Role Phone Irma Zacarias APRN C.N.P. Primary Care Provider [phone] Encounter Details Date Type Department Care Team Description 02/18/2017 Telemedicine Department of Vascular Social History Tobacco [...] How often do you attend islam or mandaeism services? 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 documented in this encounter Results VASCULAR IMAGE EXAM (02/18/2017 1:25 PM CDT) Specimen (Source) Anatomical Collection Method Collection Time Re ceived Time Location / / Volume Laterality 02/18/2017 1:21 PM CDT Narrative [facility] - 02/18/2017 2:06 PM CDT This order has been created and auto-finalized to support the import of images acquired without order. The clini ammy documentation to support these images can be found on the encounter dioni t produced images. Provider Not In System IMG NON RAD IMAGING PROCEDUR ES Performing Organization Address City/State/ZIP Code Phon e Number IIRI IIRI NA documented in this encounter Visit Diagnoses Not on filedocumented in this encounter Additional Health Concerns Assessment Noted Time PHQ-9 Depression Total Score: 6 12/22/2016 10:26 AM CD T documented as of this encounter Care Teams Transcriptionist Relationship Specialty Start Date End Date Irma Zacarais, JULIÁN, C.N.P. PCP - General 10/28/16 04/05/17 [address] [phone] documented as of this encounter
--- OUTSIDE RECORDS SUMMARY | 2022-03-16 12:31 | XMS_ITS | Encounter Summary ---
:1950 Author Organization [facility] Address [address] [place] [address] Care Team Providers Name Role Phone Unavailable Primary Care Provider Unavailable Encounter Details Date Type Department Care Team Description 07/31/2009 Hospital Encounter HX [facility] Tee Dhillon M.D. [address] [place] [address] (Wo rk) Social History Tobacco Use Types Packs/Day Years Used Date Smoking Tobacco: Never Assessed Alcohol Habits Answer Date Recorded How often [...] How often do you attend mosque or baptism services? 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
--- OUTSIDE RECORDS SUMMARY | 2022-03-16 12:31 | XMS_ITS | Encounter Summary ---
:1950 Author Organization [facility] Address [address] [place] [address] Care Team Providers Name Role Phone Unavailable Primary Care Provider Unavailable Encounter Details Date Type Department Care Team Description 06/22/2016 Hospital Encounter HX [facility] FAMILYPRA Nato Dougherty, CORONER'S JUROR, C.N.P. [address] [place], [place] [phone] (Wo rk) Social History [...] How often do you attend denominational or presybeterian services? 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 MANUFACTURING ENGINEERING TECHNOLOGIST documented as of this encounter Last Filed Vital Signs Vital Sign Reading Time Taken Comments Blood Pressure 164/88 06/22/2016 9:14 AM MANUFACTURING ENGINEERING TECHNOLOGIST Pulse 72 06/22/2016 9:11 AM MANUFACTURING ENGINEERING TECHNOLOGIST Temperature - - Respiratory Rate 20 06/22/2016 9:11 AM MANUFACTURING ENGINEERING TECHNOLOGIST Oxygen Saturation - - Inhaled Oxygen Concentration - - Weight 73.2 kg (161 lb 6 oz) 06/22/2016 9:11 AM MANUFACTURING ENGINEERING TECHNOLOGIST Height 173 cm (5' 8.11) 06/22/2016 9:14 AM MANUFACTURING ENGINEERING TECHNOLOGIST Body Mass Index 24.46 06/22/2016 9:11 AM MANUFACTURING ENGINEERING TECHNOLOGIST documented in this encounter Medications at Time of Discharge Medication Sig Dispensed Refills Start Date End Date omeprazole (PriLOSEC) 40 Take 40 mg by mouth [address] capsule every evening. aspirin 81 mg chewable Chew 1 tablet daily. 0 05/201107/22/2017 tablet colchicine (for_COLCRYS) Take 1 tablet by 0 06/2209/07/2017 0.6 mg tablet mouth once as needed. insulin glargine Inject 30 Units under 0 [...] A1c. History labile sugars, hypertension, poor control lisinopril-hydroCHLOROth Take 1 tablet by 0 06/2210/21/2017 iazide mouth daily. (for_PRINZIDE,ZESTORETIC ) 20-12.5 mg per tablet lisinopril-hydroCHLOROth Take 1 tablet by 0 02/1505/08/2020 [...] of this encounter Progress Notes Nato Dougherty, CORONER'S JUROR, C.N.P. - 06/22/2016 10:25 AM CST Clinic Full Note CHIEF COMPLAINT/REASON FOR VISIT [facility] care. Diabetic. Needs refills on medications. Has chronic leg pain. HISTORY OF PRESENT ILLNESS This is Onesimo's first visit to [facility] in [place]. He was previously seen at [facility]. He is requesting old records. He has diabetes type 2 with neuropathy, uncontrolled. States last A1c was over 8. He has been on chronic narcotic pain medication for neuropathy. He does not tolerate Lyrica. We discussed having him seen in a Pain Clinic. He prefers to go to [place]. He has hypertension, blood pressure elevated on 2 checks today. He feels it is due to nervousness about coming to a new clinic. Will recheck in a week. Depression has been stable on fluoxetine. PHQ-9score today elevated at 11, he needs refill of medication. GERD is stable on omeprazole. Gout is stable on colchicine. Restless leg syndrome prevents him from sleeping more than a couple of hours at a time. He takes ropinirole 2 mg three times daily. MEDICATIONS aspirin 325 mg oral tablet, 325 mg, 1 tab(s), PO, Daily colchicine 0.6 mg oral tablet, 0.6 mg, 1 tab(s), PO, Once, PRN FLUoxetine 40 mg oral capsule, 40 mg, 1 cap(s), PO, Daily HumaLOG KwikPen 100 units/mL subcutaneous solution, Subcut. Lantus 100 units/ml subcutaneous solution, 30 units, Subcut., Bedtime lisinopril-hydroCHLOROthiazide 20mg-12.5mg oral tablet, 1 tab(s), PO, Daily Metoprolol Succinate ER, 200 mg, PO, Daily omeprazole 20 mg oral delayed release capsule, 20 mg, 1 cap(s), PO, Daily OxyCONTIN 30 mg oral tablet, extended release, 30 mg, 1 tab(s), 2 tabs in the morning and 1 tab in the evening., PO, q12hr, 0 refills Percocet 10/325 oral tablet, 1-2 tab(s), PO, q6hr, PRN, 0 refills rOPINIRole 2 mg oral tablet, 2 mg, 1 tab(s), with food, PO, 3xDay, 0 refills ALLERGIES morphine (Itching) PAST MEDICAL HISTORY Chronic Depression Major Recurrent Moderate DM2 Peripheral Neuropathy Uncontrolled Gastroesophageal Reflux Disease (GERD ALEXANDRA) NOS Gout Arthritis Hypertension (HTN) Essential Primary NOS Restless Leg Syndrome (RLS) Historical No historical problems PROCEDURES/SURGICAL HISTORY Cataract extraction and insertion of intraocular lens (10/29/2007), Carpal tunnel release (2001), Arthroscopy of shoulder with limited debridement (10/29/1995). SOCIAL HISTORY Date Time: 06/22/2016 09:11 Tobacco: Smoking Status: Current every day smoker Exposure: Patient smokes Alcohol: Use: Yes Recreational Drugs: Use: No Results Found Type: No Results Found FAMILY HISTORY Sister:Positive: Diabetes mellitus Brother:Positive: Diabetes mellitus; Stroke Sister:Positive: Diabetes mellitus HEALTH MAINTENANCE Up to date. SYSTEMS REVIEW GENERAL: No weight gain, no weight loss, no fever in past month, no chills, no sweats, no fatigue EENT: No blurred vision, no double vision, no eye pain, no sinus problems, no hoarseness, no difficulty swallowing, no mouth sores, no diminished hearing, no ringing in ears, no enlarged glands PULMONARY: No shortness of breath, no cough, no wheezing, no sputum, no hemoptysis CARDIAC: No valve problems, no chest pain, no chest pressure, no rapid beating, no irregular beating, no dependent edema, pain in calves or with walking, no difficulty moving arms and legs GI: No heartburn, no nausea, no vomiting, no stomach trouble, no constipation, no diarrhea, no blood in BM, no change in BM : No penile discharge, no burning/pain with urination, no difficulty starting stream, no difficulty emptying bladder, no excessive urination MUSCULOSKELETAL: No joint pain, no joint swelling, no joint stiffness, no muscle pain, no muscle stiffness, no back pain, no back stiffness SKIN: No skin rashes, no skin sores, no change in moles NEURO: No significant headaches, no slurred speech, no seizures, no dizziness, no loss of consciousness VITAL SIGNS T: 36.3 ??C (Core) HR: 72 RR: 20 BP: 164 / 88 HT: 173 cm WT: 73.20 kg BMI: 24.46 PHYSICAL EXAMINATION GENERAL: Pleasant male who appears his stated age. SKIN: Without lesions. EYES: PERRLA, EOMI intact. Fundi sharp discs. Conjunctiva and lids normal. ENT: Tympanic membranes clear bilaterally. Nasal mucosa without erythema or congestion. Mouth without erythema or exudate. LYMPH NODES: Neck: Supple, without adenopathy, no thyromegaly. Carotid pulses are equal bilaterally PERIPHERAL PULSES: Femoral, dorsal, pedal and posterior tibial pulses are equal. HEART: Regular rate and rhythm without murmur. LUNGS: Clear to auscultation, there is good inspiratory effort. ABDOMEN: Soft and nontender. No palpable mass. No hepatosplenomegaly. SPINE: Straight without CVA tenderness. EXTREMITIES: Warm and dry. No cyanosis or peripheral edema. Bilateral peripheral neuropathy. Decreased sensation tops and bottoms of feet with monofilament. MENTAL: Alert and oriented. NEUROLOGIC: Reflexes 2+ and symmetrical. LAB RESULTS CBC, uric acid, A1c, BMP, microalbumin, Lipids and FIT are pending. IMPRESSION/REPORT/PLAN Depression Major Recurrent Moderate Stable on fluoxetine, refill provided. Ordered: OV New Pt Level 4 - 26394 - 45 min DM2 Peripheral Neuropathy Uncontrolled Last A1c over 8.0. Checking lab today. Insulin prescriptions refilled. Diabetes education done today. Please see Conveyor Installer Intake form in the Electronic Health Record. He has been on chronic narcotics for peripheral neuropathy. Scheduling consult in the [place] [facility]. Ordered: Basic Metabolic Panel, Fasting* Hemoglobin A1c Lipid Panel* OV New Pt Level 4 - 86080 - 45 min UR Microalbumin Random Encounter for screening for malignant neoplasm of colon Ordered: OV New Pt Level 4 - 43577 - 45 min Gastroesophageal Reflux Disease (GERD ALEXANDRA) NOS Stable on omeprazole, refill provided. Ordered: OV New Pt Level 4 - 34815 - 45 min Gout Arthritis Stable on colchicine. No change in medication. Ordered: OV New Pt Level 4 - 43690 - 45 min Uric Acid Hypertension (HTN) Essential Primary NOS Elevated on 2 checks today. Continue lisinopril-hydrochlorothiazide and recheck blood pressure in one week. Ordered: OV New Pt Level 4 - 47265 - 45 min Thyroid Stimulating Hormone Orders: insulin lispro, 5-10 units, Subcut., 3xDayAC, # 15 mL, 2 Refill(s), Maintenance, Pharmacy: [facility], [place], [place] metoprolol, 200 mg = 1 tab(s), PO, Daily, do not crush or chew, # 30 tab(s), 5 Refill(s), Maintenance, Pharmacy: [facility], [place], [place] omeprazole, 20 mg = 1 cap(s), PO, Daily, # 30 cap(s), 11 Refill(s), Maintenance, Pharmacy: [facility], [place], [place] oxyCODONE-acetaminophen, 1-2 tab(s), PO, 3xDay, PRN Pain, # 90 tab(s), 0 Refill(s), Maintenance Occult Blood QL Immunochem, [place] [address] Vital Signs - Nurse Visit Electronically Signed By: NATO DOUGHERTY APRN, CNP On: 06/22/2016 10:55 AM Source: [facility] POWERCHART Document Id: [id number] FACTURING ENGINEERING TECHNOLOGIST documented in this encounter Nursing Notes Nato Dougherty APRN, C.N.P. - 06/22/2016 10:56 AM CST Conveyor Installer Intake (Adult) Conveyor Installer Intake (Adult) Entered On: 06/22/2016 10:58 MANUFACTURING ENGINEERING TECHNOLOGIST Performed On: 06/22/2016 10:56 MANUFACTURING ENGINEERING TECHNOLOGIST by NATO DOUGHERTY APRN, CNP Assessment Program Type : Non-Program Diabetes Referring Provider : NATO DOUGHERTY APRN, CNP Special needs : None Method Used for DSME : Individual Last Educator Visit Date : 06/22/2016 MANUFACTURING ENGINEERING TECHNOLOGIST Diabetes Type : Type 2 19 years and older Ethnicity : White/ Diabetes Onset : 1995 Diabetes Onset At Age : 46 years Current Treatment : Insulin vial Medication Compliance : Takes meds as prescribed Diabetes Medications Reviewed : Yes Time Spent With Patient : 15 Minutes NATO DOUGHERTY APRN, CNP - 06/22/2016 10:56 MANUFACTURING ENGINEERING TECHNOLOGIST Education Diabetes Education Grid Topics : Problem Solving/Goal Setting - Treatment/Management Goals Individuals Taught : Patient Barriers to Learning : None evident Teaching Method : Explanation, Printed materials Teaching Evaluation : Verbalizes understanding NATO DOUGHERTY APRN, CNP - 06/22/2016 10:56 MANUFACTURING ENGINEERING TECHNOLOGIST Comprehensive Program Goals Diabetes Education Goals Grid Diabetes Education Goal #1 row Diabetes Education Goal #2 row Diabetes Education Goal #3 row Date Goal Set : 06/22/2016 MANUFACTURING ENGINEERING TECHNOLOGIST 06/22/2016 MANUFACTURING ENGINEERING TECHNOLOGIST 06/22/2016 MANUFACTURING ENGINEERING TECHNOLOGIST Goal : A1c less than 7-8 Annual eye exam Blood pressure less than 140/90 Related Content Area : Healthy eating Reducing risks Medication NATO DOUGHERTY APRN [facility] - 06/22/2016 10:56 MANUFACTURING ENGINEERING TECHNOLOGIST NATO DOUGHERTY APRN [facility] - 06/22/2016 10:56 MANUFACTURING ENGINEERING TECHNOLOGIST NATO DOUGHERTY APRN [facility] - 06/22/2016 10:56 MANUFACTURING ENGINEERING TECHNOLOGIST Source: [facility] Helpful TechnologiesCHART Document Id: [id number] MANUFACTURING ENGINEERING TECHNOLOGIST!37 FACTURING ENGINEERING TECHNOLOGIST Nato Dougherty APRN, C.N.P. - 06/22/2016 9:41 AM CST Ambulatory Patient Education The following Patient Education [...] or tender areas of the foot ?? [id number] [place] [address]. All rights reserved. This information is not intended as a substitute for professional medical care. Always follow your healthcare professional's instructions. Source: [facility] POWERCHART Document Id: [id number] FACTURING ENGINEERING TECHNOLOGIST documented in this encounter Miscellaneous Notes Miscellaneous - Nato Dougherty APRN, C.N.P. - 06/22/2016 1:58 PM CST Schedule Follow-Up Visit June 22, 2016 ONESIMO WALTON [id number] [facility] [id number] Dear ONESIMO WALTON, Thank you for choosing [facility] for your health care needs. You recently had laboratory work performed to assess your overall health. This letter contains the results of your testing and standard ranges to help explain the results. I would recommend follow-up as we previously discussed. If you have questions prior to our appointment, please contact our office. Result Name Current Result Normal Range U Albumin (mg/L) 96.8 06/22/2016 U Creatinine (mg/dL) (L) 33 06/22/2016 40 - 278 U Alb/Creatinine Ratio (mg/g) (H) 294 06/22/2016 0 - 17 Sodium Lvl (mmol/L) 141 06/22/2016 135 - 145 Potassium Lvl (mmol/L) 4.3 06/22/2016 3.6 - 5.2 Chloride (mmol/L) 99 06/22/2016 98 - 107 CO2 (mmol/L) 28 06/22/2016 22 - 29 AGAP (mmol/L) 14 06/22/2016 7 - 15 Glucose Fasting (mg/dL) (H) 175 06/22/2016 70 - 99 Creatinine (mg/dL) (H) 1.39 06/22/2016 0.80 - 1.30 EGFR (MDRD) (mL/min/1.73m2) (L) 51 06/22/2016 >=60 - EGFR (MDRD) (mL/min/1.73m2) >60 06/22/2016 >=60 - [id number] (mg/dL) 24 06/22/2016 8 - 24 Calcium Lvl (mg/dL) 9.0 06/22/2016 8.8 - 10.3 Uric Acid (mg/dL) 8.0 06/22/2016 3.7 - 8.0 Cholesterol (mg/dL) 179 06/22/2016 - <=199 Trig (mg/dL) (H) 191 06/22/2016 - <=149 HDL (mg/dL) (L) 38 06/22/2016 >=40 - LDL Calculated (mg/dL) 103 06/22/2016 - <=129 Chol/HDL Ratio 5.00 06/22/2016 LDL/HDL 3 06/22/2016 Hgb A1c (% A1C) (H) 8.4 06/22/2016 - <=5.6 TSH (mIU/L) 1.09 06/22/2016 0.27 - 4.20 Hgb (g/dL) (L) 13.3 06/22/2016 13.5 - 17.5 Hct (%) (L) 38.7 06/22/2016 38.8 - 50.0 WBC (x10(9)/L) (H) 14.5 06/22/2016 3.5 - 10.5 RBC (x10(12)/L) (L) 4.05 06/22/2016 4.32 - 5.72 MCV (fL) (H) 95.6 06/22/2016 81.0 - 95.0 RDW (%) 13.3 06/22/2016 11.8 - 15.6 Platelet (x10(9)/L) 211 06/22/2016 150 - 450 Neutro Absolute (10(9)/L) (H) 9.90 06/22/2016 1.70 - 7.00 Lymph Absolute (x10(9)/L) 2.80 06/22/2016 0.90 - 2.90 Todd Absolute (x10(9)/L) (H) 1.07 06/22/2016 0.30 - 0.90 Eos Absolute (x10(9)/L) (H) 0.68 06/22/2016 0.05 - 0.50 Baso Absolute (x10(9)/L) 0.04 06/22/2016 0.00 - 0.30 Sincerely, NATO DOUGHERTY [address] [place] [address] Electronic Signature Electronically Signed By: NATO DOUGHERTY APRN, CNP On: June 22, 2016 This document has images extracted. Source: [facility] POWERCHART Document Id: [id number] Electronically signed by Conversion, [facility] Planner/Scheduler [id number] at 10/25/2016 11:39 PM CDT Miscellaneous - Nato Dougherty APRN, C.N.P. - 06/22/2016 10:58 AM MANUFACTURING ENGINEERING TECHNOLOGIST Quality Measures Quality Measures Entered On: 06/22/2016 10:59 MANUFACTURING ENGINEERING TECHNOLOGIST Performed On: 06/22/2016 10:58 MANUFACTURING ENGINEERING TECHNOLOGIST by NATO DOUGHERTY APRN, CNP Diabetes Date of Last Foot Exam : 06/22/2016 MANUFACTURING ENGINEERING TECHNOLOGIST Date of Last Diabetes Education : 06/22/2016 MANUFACTURING ENGINEERING TECHNOLOGIST NATO DOUGHERTY APRN, CNP - 06/22/2016 10:58 MANUFACTURING ENGINEERING TECHNOLOGIST Foot Exam Grid Left foot exam Right foot exam Dorsalis Pedis Pulse : Normal Normal Capillary Refill : Less than 3 seconds Less than 3 seconds 10 gm Monofilament Sensation Check : Intact Intact NATO DOUGHERTY APRN, CNP - 06/22/2016 10:58 MANUFACTURING ENGINEERING TECHNOLOGIST NATO DOUGHERTY APRN, CNP - 06/22/2016 10:58 MANUFACTURING ENGINEERING TECHNOLOGIST Source: [facility] Helpful TechnologiesCHART Document Id: [id number] MANUFACTURING ENGINEERING TECHNOLOGIST!13 FACTURING ENGINEERING TECHNOLOGIST Miscellaneous - Winter Singh L.P.N. - 06/22/2016 10:05 AM CST PHQ-9 PHQ-9 Entered On: 06/22/2016 10:05 MANUFACTURING ENGINEERING TECHNOLOGIST Performed On: 06/22/2016 10:05 MANUFACTURING ENGINEERING TECHNOLOGIST by WINTER SINGH LPN PHQ-9 Little interest or pleasure in doing things : More than half the days Feeling down, depressed, or hopeless : More than half the days Trouble falling or staying asleep, or sleeping too much : Several days Feeling tired or having little energy : More than half the days Poor appetite or overeating : More than half the days Feeling bad about yourself or that you are a failure : Several days Trouble concentrating on things : Several days Moving or speaking slowly; restless or fidgety : Not at all Thoughts that you would be better off /hurting self : Not at all PHQ-9 Calculated Score : 11 Problems make work, home, or dealing with others : Somewhat difficult WINTER SINGH LPN - 06/22/2016 10:05 MANUFACTURING ENGINEERING TECHNOLOGIST Source: [facility] [employer]Il[employer] Document Id: [id number] MANUFACTURING ENGINEERING TECHNOLOGIST!13 FACTURING ENGINEERING TECHNOLOGIST Kelsi - Nato Dougherty APRN, C.N.P. - 06/22/2016 9:41 AM CST Ambulatory Patient Summary [address] [id number] Visit Information Name: ONESIMO WALTON [facility] Number: [id number] Current Date: 06/22/2016 09:41:23 Physicians Attending Provider: NATO DOUGHERTY APRN, CNP Primary Care Provider: PCP, ONESIMO SOLIZ has been given the following list of [...] Take Indications/Special Instructions/Comments/Notes for Patient Medication Changes/Routing aspirin (aspirin 325 mg oral tablet) 1 Tablet(s), Oral, once a day colchicine (colchicine 0.6 mg oral tablet) 1 Tablet(s), Oral, once as needed for Gout pain FLUoxetine (FLUoxetine 40 mg oral capsule) 1 cap, Oral, once a day insulin glargine (Lantus 100 units/ml subcutaneous solution) 30 units, Subcutaneous, once a day (at bedtime) insulin lispro (HumaLOG KwikPen 100 units/mL subcutaneous solution) 5-10 units, Subcutaneous, three times a day before meals New Routed to [facility] [address] [place] [address] lisinopril-hydroCHLOROthiazide (lisinopril-hydroCHLOROthiazide 20mg-12.5mg oral tablet) 1 Tablet(s),Oral, once a day metoprolol (Metoprolol Succinate ER 200 mg oral tablet, extended release) 1 Tablet(s), Oral, once a day do not crush or chew New Routed to [facility] [address] [place] [address] multivitamin with minerals (Centrum Silver Men's oral tablet) omeprazole (omeprazole 20 mg oral delayed release capsule) 1 cap, Oral, once a day New Routed to [facility] [address] [place] [address] oxyCODONE (OxyCONTIN 30 mg oral tablet, extended release) 1 Tablet(s), Oral, every 12 hours 2 tabs in the morning and 1 tab in the evening. This is a CHANGE oxyCODONE-acetaminophen (Percocet 10/325 oral tablet) 1-2 tab(s), Oral, three times a day as needed for Pain No more than 4,000mg acetaminophen/24hrs This is a CHANGE Routed to Printer rOPINIRole (rOPINIRole 2 mg oral tablet) 1 Tablet(s), Oral, three times a day with food Stop Taking the Following Medications: Medication list as of 06-22-16 09:41 Attention: If you have any medications at [...] Signed By: NATO DOUGHERTY APRN, CNP Signed On:22-JUN-2016 09:41:05 Your Allergies & Intolerances Substance Reaction Symptoms Category Comments morphine Itching Drug Your Problem List Problem Status Onset Comments DM2 Peripheral Neuropathy Uncontrolled Active Hypertension (HTN) Essential Primary NOS Active Depression Major Recurrent Moderate Active Gout Arthritis Active Gastroesophageal Reflux Disease (GERD ALEXANDRA) NOS Active Restless Leg Syndrome (RLS) Active Your Upcoming Appointments Date Time Location [...] or tender areas of the foot ?? [phone] [place] [address]. All rights reserved. This information is not [...] if you dont have one. Go to [email or web address] and click on Create Your Account. Then, follow the directions to complete the online form. Youll be asked for your [facility] number which you can find at the top of this document. Your Goals/Additional instructions: Source: [facility] POWERCHART Document Id: [id number] FACTURING ENGINEERING TECHNOLOGIST Miscellaneous - Nato Dougherty APRN, C.N.P. - 06/22/2016 9:41 AM CST Ambulatory Discharge Medication List [address] [place] [id number] Visit Information Name: ONESIMO WALTON [facility] Number: [id number] Current Date: 06/22/2016 09:41:22 Attending Provider: NATO DOUGHERTY APRN [facility] Primary Care Provider: PCP, ELSEWHERE ONESIMO WALTON has been given the following list of medications: Your Medications It is important to take your medications as directed. Use a pill box or chart to help remind you to take your medications. Please let your doctor or nurse know if you have problems taking your medications. Medication/Strength How to Take Indications/Special Instructions/Comments/Notes for Patient Medication Changes/Routing aspirin (aspirin 325 mg oral tablet) 1 Tablet(s), Oral, once a day colchicine (colchicine 0.6 mg oral tablet) 1 Tablet(s), Oral, once as needed for Gout pain FLUoxetine (FLUoxetine 40 mg oral capsule) 1 cap, Oral, once a day insulin glargine (Lantus 100 units/ml subcutaneous solution) 30 units, Subcutaneous, once a day (at bedtime) insulin lispro (HumaLOG KwikPen 100 units/mL subcutaneous solution) 5-10 units, Subcutaneous, three times a day before meals New Routed to [facility] [address] [place] [address] lisinopril-hydroCHLOROthiazide (lisinopril-hydroCHLOROthiazide 20mg-12.5mg oral tablet) 1 Tablet(s),Oral, once a day metoprolol (Metoprolol Succinate ER 200 mg oral tablet, extended release) 1 Tablet(s), Oral, once a day do not crush or chew [facility] [address] [place], [place] [id number] multivitamin with minerals (Centrum Silver Men's oral tablet) omeprazole (omeprazole 20 mg oral delayed release capsule) 1 cap, Oral, once a day [facility] [address] [place] [address] oxyCODONE (OxyCONTIN 30 mg oral tablet, extended release) 1 Tablet(s), Oral, every 12 hours 2 tabs in the morning and 1 tab in the evening. This is a CHANGE oxyCODONE-acetaminophen (Percocet 10/325 oral tablet) 1-2 tab(s), Oral, three times a day as needed for Pain No more than 4,000mg acetaminophen/24hrs This is a CHANGE Routed to Printer rOPINIRole (rOPINIRole 2 mg oral tablet) 1 Tablet(s), Oral, three times a day with food Stop Taking the Following Medications: Medication list as of 06-22-16 09:41 Attention: If you have any medications at [...] emergency. Electronically Signed By: NATO DOUGHERTY APRN ANALYTICAL LAB ANALYST Signed On:22-JUN-2016 09:41:05 Additional Information: Source: [facility] Helpful TechnologiesCHART Document Id: [id number] FACTURING ENGINEERING TECHNOLOGIST Miscellaneous - Winter Singh L.P.N. - 06/22/2016 9:14 AM CST Ambulatory Vitals Height Weight Ambulatory Vitals Height Weight Entered On: 06/22/2016 9:16 MANUFACTURING ENGINEERING TECHNOLOGIST Performed On: 06/22/2016 9:14 MANUFACTURING ENGINEERING TECHNOLOGIST by WINTER SINGH LPN Vitals/Ht/Wt Systolic Blood Pressure : 164 mmHg (>HHI) Diastolic Blood Pressure : 88 mmHg NIBP Mean : 113 mmHg BP Location : Right upper extremity Blood Pressure Cuff Size : Regular Height : 173 cm(Converted to: 5 ft 8 inch(es), 68 inch(es)) WINTER SINGH LPN - 06/22/2016 9:14 MANUFACTURING ENGINEERING TECHNOLOGIST Source: [facility] POWERCHART Document Id: [id number] MANUFACTURING ENGINEERING TECHNOLOGIST!8 FACTURING ENGINEERING TECHNOLOGIST Miscellaneous - Winter Singh L.P.N. - 06/22/2016 9:11 AM CST Adult Business Development Specialist Intake/History Adult Business Development Specialist Intake/History Entered On: 06/22/2016 9:14 MANUFACTURING ENGINEERING TECHNOLOGIST Performed On: 06/22/2016 9:11 MANUFACTURING ENGINEERING TECHNOLOGIST by WINTER SINGH LPN Intake Chief Complaint : Establing care. Diabetic. Needs refills on medications. Has chronic leg pain. Temperature Core : 36.3 DegC(Converted to: 97.3 DegF) (LOW) Peripheral Pulse Rate : 72 /min Respiratory Rate : 20 /min Heart Rhythm : Regular Systolic Blood Pressure : 172 mmHg (>HHI) Diastolic Blood Pressure : 88 mmHg NIBP Mean : 116 mmHg BP Location : Right upper extremity Blood Pressure Cuff Size : Regular Height : 173 cm(Converted to: 5 ft 8 inch(es), 68 inch(es)) Actual Weight : 73.20 kg(Converted to: 161 lb 6 oz) Weight Source : Standing scale Dosing Weight Clinic : 73.2 kg Clinic BSA : 1.88 Body Mass Index : 24.46 kg/m2 WINTER SINGH LPN - 06/22/2016 9:11 MANUFACTURING ENGINEERING TECHNOLOGIST General Info Information Given By : Patient Preferred Communication Mode : Verbal Languages : Sami Is Patient Female and 13-50 no hysterectomy : No WINTER SINGH LPN - 06/22/2016 9:11 MANUFACTURING ENGINEERING TECHNOLOGIST Subjective Pain Symptoms : Yes WINTER SINGH LPN - 06/22/2016 9:11 MANUFACTURING ENGINEERING TECHNOLOGIST Pain Scale Pain Scale Verbal 0-10 : Open WINTER SINGH LPN - 06/22/2016 9:11 MANUFACTURING ENGINEERING TECHNOLOGIST Pain Pain Assessment Grid Pain 1 Pain 2 Location : Lower leg Upper leg Laterality : Bilateral Bilateral Intensity : 8 5 Time Pattern : Chronic, Constant Chronic, Constant WINTER SINGH LPN - 06/22/2016 9:11 MANUFACTURING ENGINEERING TECHNOLOGIST WINTER SINGH LPN - 06/22/2016 9:11 MANUFACTURING ENGINEERING TECHNOLOGIST Dependent Habits Exposure to Tobacco Smoke : Patient smokes Smoking Status : Current every day smoker Tobacco 2A : Yes Tobacco Use/Currently Using : Yes Tobacco Use/Last 30 Days : Yes Tobacco Use/Last 12 months : Yes Type : Cigarettes: Less than 20 per day Tobacco Use/Advised to Quit : Yes Alcohol Use : Yes WINTER SINGH LPN - 06/22/2016 9:11 MANUFACTURING ENGINEERING TECHNOLOGIST Source: [facility] POWERCHART Document Id: [id number] MANUFACTURING ENGINEERING TECHNOLOGIST!49 FACTURING ENGINEERING TECHNOLOGIST Miscellaneous - Winter Singh LFeiP.NFei - 06/22/2016 9:09 AM CST Health Assessment Health Assessment Entered On: 06/22/2016 9:11 MANUFACTURING ENGINEERING TECHNOLOGIST Performed On: 06/22/2016 9:09 MANUFACTURING ENGINEERING TECHNOLOGIST by WINTER SINGH LPN Health Assessment Complete Health Assessment Complete or Modified : Annual Health Assessment Annual Health Assessment Completed : Yes WINTER SINGH LPN - 06/22/2016 9:09 MANUFACTURING ENGINEERING TECHNOLOGIST Nutrition Nutrition Risk Factors by History Adult : None WINTER SINGH LPN - 06/22/2016 9:09 MANUFACTURING ENGINEERING TECHNOLOGIST Functional Current Daily Living Assistance : None WINTER SINGH LPN - 06/22/2016 9:09 MANUFACTURING ENGINEERING TECHNOLOGIST Dependent Habits Exposure to Tobacco Smoke : Patient smokes Smoking Status : Current every day smoker Tobacco 2A : Yes Tobacco Use/Currently Using : Yes Tobacco Use/Last 30 Days : Yes Tobacco Use/Last 12 months : Yes Type : Cigarettes: Less than 20 per day Tobacco Use/Advised to Quit : Yes Alcohol Use : Yes WINTER SINGH LPN - 06/22/2016 9:09 MANUFACTURING ENGINEERING TECHNOLOGIST AUDIT Tool How Often Do You Have A Drink : 2 to 3 times a week How Many Drinks in a Day When Drinking : 1 or 2 Six or More Drinks On One Occassion : Never Audit Phase 1 Score : 3 WINTER SINGH LPN - 06/22/2016 9:09 MANUFACTURING ENGINEERING TECHNOLOGIST Psychosocial Domestic Abuse Concerns : None Behavioral Health Screen/Safety Assmt : No Denominational Preference : Unknown WINTER SINGH LPN - 06/22/2016 9:09 MANUFACTURING ENGINEERING TECHNOLOGIST Advance Directive Advanced Directives : No Advance Directive Additional Information : Yes WINTER SINGH CYNTHIA - 06/22/2016 9:09 MANUFACTURING ENGINEERING TECHNOLOGIST Educ Needs Learning Style Preference Adult Grid Patient : Printed materials, Verbal explanation Family : Verbal explanation, Printed materials WINTER SINGH CYNTHIA - 06/22/2016 9:09 MANUFACTURING ENGINEERING TECHNOLOGIST Source: [facility] POWERCHART Document Id: [id number] MANUFACTURING ENGINEERING TECHNOLOGIST!34 FACTURING ENGINEERING TECHNOLOGIST documented in this encounter Plan of Treatment Not on filedocumented as of this encounter Procedures Procedure Name Priority Date/Time Associated Comments Diagnosis ALBUMIN, RANDOM, U Routine 06/22/2016 9:55 AM Res ults for this MANUFACTURING ENGINEERING TECHNOLOGIST procedure are i n the results section. LIPID PANEL, S Routine 06/22/2016 9:53 AM Results for this MANUFACTURING ENGINEERING TECHNOLOGIST procedure are i n the results section. AUTOMATED Routine 06/22/2016 9:53 AM Results f or this DIFFERENTIAL, B MANUFACTURING ENGINEERING TECHNOLOGIST procedure ar e in the results section. CBC WITH Routine 06/22/2016 9:53 AM Results f or this DIFFERENTIAL, B MANUFACTURING ENGINEERING TECHNOLOGIST procedure ar e in the results section. URIC ACID, S/P Routine 06/22/2016 9:53 AM Results for this MANUFACTURING ENGINEERING TECHNOLOGIST procedure are i n the results section. THYROID-STIMULATING Routine 06/22/2016 9:53 AM Re sults for this HORMONE-SENSITIVE MANUFACTURING ENGINEERING TECHNOLOGIST procedure are in (S-TSH) the results section. HEMOGLOBIN A1C, B Routine 06/22/2016 9:53 AM Resu lts for this MANUFACTURING ENGINEERING TECHNOLOGIST procedure are i n the results section. BASIC METABOLIC Routine 06/22/2016 9:53 AM Result s for this PANEL, S/P MANUFACTURING ENGINEERING TECHNOLOGIST procedure are i n the results section. documented in this encounter Results (ABNORMAL) Microalbumin, Random, Urine (06/22/2016 9:55 AM MANUFACTURING ENGINEERING TECHNOLOGIST) P athologist Signature Creatinine, 33 (L) 40 - 278 POWERCHART Random, U MGDL HXU Albumin % 96.8 MGL POWERCHART Albumin/Creati 294 (H) 0 - 17 MGG POWERCHART nine Ratio Specimen (Source) Anatomical Collection Method Collection Time Re ceived Time Location / / Volume Laterality Urine 06/22/2016 9:55 AM MANUFACTURING ENGINEERING TECHNOLOGIST Nato Dougherty APRN, C.N.P. LAB URINE ORDERABLES Performing Organization Address City/[facility]/ZIP Code Phon e Number POWERCHART (ABNORMAL) Automated Differential (06/22/2016 9:53 AM MANUFACTURING ENGINEERING TECHNOLOGIST) Patholo gist Method Time Signature Absolute 9.90 (H) 1.70 - POWERCHART Neutrophils 7.00 109L Lymphocytes 2.80 0.90 - POWERCHART 2.90 X109L Monocytes 1.07 (H) 0.30 - POWERCHART 0.90 X109L Eosinophils 0.68 (H) 0.05 - POWERCHART 0.50 X109L Absolute 0.04 0.00 - POWERCHART Basophil 0.30 X109L Specimen Anatomical Collection Method Collection Time Receive d Time (Source) Location / / Volume Laterality Blood 06/22/2016 9:53 AM 7 9:53 MANUFACTURING ENGINEERING TECHNOLOGIST AM MANUFACTURING ENGINEERING TECHNOLOGIST Jennifer Stinson APRNNRinku. LAB BLOOD ADD-ON Performing Organization Address [facility] Phon e Number POWERCHART (ABNORMAL) CBC with Differential (06/22/2016 9:53 AM MANUFACTURING ENGINEERING TECHNOLOGIST) Analysis Performed At Patho logist Time Signature Leukocytes 14.5 (H) 3.5 - 10.5 POWERCHART X109L Erythrocytes 4.05 (L) 4.32 - POWERCHART 5.72 [id number] Hemoglobin 13.3 (L) 13.5 - POWERCHART 17.5 GDL Hematocrit 38.7 (L) 38.8 - POWERCHART 50.0 MCV 95.6 (H) 81.0 - POWERCHART 95.0 FL HX RDW 13.3 11.8 - POWERCHART 15.6 Platelet Count 211 150 - 450 POWERCHART X109L Specimen (Source) Anatomical Collection Method Collection Time Re ceived Time Location / / Volume Laterality Blood 06/22/2016 9:53 AM MANUFACTURING ENGINEERING TECHNOLOGIST Jennifer Stinson APRNN.P. LAB BLOOD ADD-ON Performing Organization Address City/[facility]/ZIP Code Phon e Number POWERCHART Uric Acid (06/22/2016 9:53 AM MANUFACTURING ENGINEERING TECHNOLOGIST) P athologist Signature Uric Acid, S 8.0 3.7 - 8.0 POWERCHART MGDL Specimen (Source) Anatomical Collection Method Collection Time Re ceived Time Location / / Volume Laterality Blood 06/22/2016 9:53 AM MANUFACTURING ENGINEERING TECHNOLOGIST William Stinson APRN.N.P. LAB BLOOD ADD-ON Performing Organization Address City/State/ZIP Code Phon e Number POWERCHART Thyroid-Stimulating Hormone-Sensitive (s-TSH) (06/22/2016 9:53 AM MANUFACTURING ENGINEERING TECHNOLOGIST) P athologist Signature TSH 1.09 0.27 - 4.20 POWERCHART (Thyrotropin) JUAN MANUEL Comment: Biotin has been identified by the lauryn currie as a potential interfering substance. Higher concentrations of biotin may be found in multivitamins, hair/nail supplements, and workout supplements. If the result does not match clinical observat ions, repeat testing after patient refrains from the use of supplements for at least 12 hours. Specimen (Source) Anatomical Collection Method Collection Time Re ceived Time Location / / Volume Laterality Blood 06/22/2016 9:53 AM MANUFACTURING ENGINEERING TECHNOLOGIST Nato Dougherty APRN, C.N.P. LAB BLOOD ADD-ON Performing Organization Address City/State/ZIP Code Phon e Number POWERCHART (ABNORMAL) Lipid Panel (06/22/2016 9:53 AM MANUFACTURING ENGINEERING TECHNOLOGIST) P athologist Signature Cholesterol, 179 <=199 MGDL POWERCHART Total Comment: 2013 National Lipid Association recommen dations for Total Cholesterol in adults ages 18 and up: Desirable <200 mg/dL Borderline high 200-239 mg/dL High 240 mg/dL 2014 National Lipid Association recommen dations for Total Cholesterol in children ages 2 to 17. Acceptable <170 mg/dL Borderline High 170-199 mg/dL High 200 mg/dL HX HDL 38 (L) >=40 MGDL POWERCHART Comment: 2014 National Lipid Association recommen dations for HDL-C in adults ages 18 and up: Low <40 mg/dL (Men) Low <50 mg/dL (Women) 2014 National Lipid Association recommen dations for HDL-C in children ages 2 to 17. Low <40 mg/dL Borderline Low 40-45 mg/dL Acceptable >45 mg/dL Triglycerides 191 (H) <=149 MGDL POWERCHART Comment: 2014 National Lipid Association [...] assessment when triglycerides are >400mg/dL. Calculated LDL 103 <=129 MGDL POWERCHART Comment: 2014 National Lipid Association [...] esting for FH and FDB is available elda [facility]: FH/ADH Genetic Reflex [place] (test ADHP). Acquired (non-genetic) causes of markedly increased LDL cholesterol include cholestatic liver disease due to the presence of LpX. If a genetic form of hypercholesterolemia is suspected, family studies including biochemical testing fo r lipids (total cholesterol,triglycerides, LDL cholesterol and HDL cholesterol) are recommended. ??Please contact the laboratory at or the on-line test catalog at [facility] for information about how to order these damion ts or to speak with a genetic counselor. Further interpretation would require clinical information. Total Cholesterol/HDL Ratio 5.00 PO WERCHART HXLDL/HDL 3 POWERCHART Specimen (Source) Anatomical Collection Method Collection Time Re ceived Time Location / / Volume Laterality Blood 06/22/2016 9:53 AM MANUFACTURING ENGINEERING TECHNOLOGIST Nato Dougherty APRN, C.N.P. LAB BLOOD ADD-ON Performing Organization Address City/State/ZIP Code Phon e Number POWERCHART (ABNORMAL) Hemoglobin A1c (06/22/2016 9:53 AM MANUFACTURING ENGINEERING TECHNOLOGIST) P athologist Signature Hemoglobin A1c, 8.4 (H) <=5.6 A1C POWERCHART B Specimen (Source) Anatomical Collection Method Collection Time Re ceived Time Location / / Volume Laterality Blood 06/22/2016 9:53 AM MANUFACTURING ENGINEERING TECHNOLOGIST Nato Dougherty APRN, C.N.P. LAB BLOOD ADD-ON Performing Organization Address City/State/ZIP Code Phon e Number POWERCHART (ABNORMAL) BMP (Basic Metabolic Panel) (06/22/2016 9:53 AM MANUFACTURING ENGINEERING TECHNOLOGIST) P athologist Signature Sodium, S 141 135 - 145 POWERCHART MMOLL Potassium, S 4.3 3.6 - 5.2 POWERCHART MMOLL Chloride, S 99 98 - 107 POWERCHART MMOLL CO2 Total 28 22 - 29 POWERCHART MMOLL Comment: Reference ranges have not been established for patients that are <12 months of age. Glucose, Fasting, S 175 (H) 70 - 99 MGDL POWERCH ART BUN (Blood Urea Nitrogen), S 24 8 - 24 MGDL POWERCHART Creatinine 1.39 (H) 0.80 - 1.30 MGDL POWERCHART Calcium, Total, S 9.0 8.8 - 10.3 MGDL POWERC BRIONES Anion Gap 14 7 - 15 MMOLL POWERCHART HXeGFR (MDRD) 51 (L) >=60 [id number] POWERCHART eGFR Black/ >60 >=60 [id number] POWERCHART Specimen (Source) Anatomical Collection Method Collection Time Re ceived Time Location / / Volume Laterality Blood 06/22/2016 9:53 AM MANUFACTURING ENGINEERING TECHNOLOGIST Nato Dougherty APRN, C.N.P. LAB BLOOD ADD-ON Performing Organization Address City/State/ZIP Code Phon e Number POWERCHART documented in this encounter Visit Diagnoses Not on filedocumented in this encounter Additional Health Concerns Assessment Noted Time PHQ-9 Depression Total Score: 11 06/22/2016 10:[address] documented as of this encounter
--- OUTSIDE RECORDS SUMMARY | 2022-03-16 12:31 | XMS_ITS | Encounter Summary ---
:1950 Author Organization [facility] Address [address] [place] [address] Care Team Providers Name Role Phone Unavailable Primary Care Provider Unavailable Encounter Details Date Type Department Care Team Description 11/06/2009 Hospital Encounter HX [facility] Tee Dhillon M.D. [address] [place] [address] (Wo rk) Social History Tobacco [...] How often do you attend lutheran or hinduism services? 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 Addendum by KIRILL SINGH LPN on July 08, 2016 15:57:08 CHIEF DEPUTY CORONER From: KIRILL SINGH LPN ( Myrbipin Nurse) To: NATO DOUGHERTY APRN, CNP; Sent: 07/08/2016 15:57:08 CHIEF DEPUTY CORONER Subject: FW: *Phone Message/Deann Addendum by KIRILL SINGH LPN on July 08, 2016 15:56:59 CHIEF DEPUTY CORONER notified Stacie from [facility] that it is ok to change medication. Stated that they usually go with cymblata and they will take over ordering that. Addendum by RICHA BHATT on July 08, 2016 15:53:39 CHIEF DEPUTY CORONER Stacie from [facility] in [place] returned call - [phone] and ask for her and theywill find her for you Addendum by KIRILL SINGH LPN on July 08, 2016 14:49:16 CHIEF DEPUTY CORONER Attempted to contact patient. Message left to return my call. Addendum by NATO DOUGHERTY APRN, CNP on July 08, 2016 14:42:55 CHIEF DEPUTY CORONER From: NATO DOUGHERTY APRN, CNP To: FB Deann Nurse; Sent: 07/08/2016 14:42:55 CHIEF DEPUTY CORONER Subject: RE: *Phone Message/Deann Yes, that is Ok. Addendum by KIRILL SINGH LPN on July 08, 2016 14:30:08 CHIEF DEPUTY CORONER From: KIRILL SINGH LPN ( Myrom Nurse) To: NATO DOUGHERTY APRN, CNP; Sent: 07/08/2016 14:30:08 CHIEF DEPUTY CORONER Subject: FW: *Phone Message/[employer] Addendum by KIRILL SINGH LPN on July 08, 2016 14:29:59 CHIEF DEPUTY CORONER Spoke with: ( _ ) Patient ( _ ) Parent ( _ ) Spouse ( _ ) Child ( x Stacie [facility] [place] ) Other: _ Call back telephone number: _ Reason for Call: -Medication change Chief Complaint: Spoke with Stacie and they want your approval to switch Paolo prozac to either cymblata or Nortriptyline. _ Patient/Caller response to Education/Information given: ( x ) Verbalizes understanding of instructions ( _ ) Provide intervention per provider instruction ( _ ) Reinforce information already given ( _ ) Reinforce Plan of Care ( _ ) Provide preprinted information by mail (if applicable) Source/Reference used (if applicable): _ OK to leave message on voice mail? _ OK to send message via patient portal? _ Patient told to expect return call: ( x ) today ( _ ) tomorrow ( _ ) next work day Callers preferred language for Healthcare discussion: _ Was an audio visual engineer used for this call? _ Other ( --_ ) From: ROBERTO VENTURA ([address] Nurse) To: FINESSE Dougherty Nurse; Sent: 07/08/2016 14:18:53 CHIEF DEPUTY CORONER Subject: *Phone Message/[employer] Caller is: ( ) Patient ( ) Mother ( ) Father ( ) Spouse ( ) Daughter ( ) Son ( ) Pharmacy ( ) Other: Physician: Patient MRN #: Reason for Call: Message: [facility] called. They are looking to possibly change medication, looking for your approval for the plan. Please call [phone] can ask to speak to triage. Advice/Action: Source used: ( ) Verbalizes understanding [...] back cell phone number ( ) Source: [facility] POWERCHART Document Id: [id number] documented in this encounter Plan of Treatment Not on filedocumented as of this encounter Visit Diagnoses Not on filedocumented in this encounter
--- OUTSIDE RECORDS SUMMARY | 2022-03-16 12:31 | XMS_ITS | Encounter Summary ---
:1950 Author Organization [facility] Address [address] [place] [address] Care Team Providers Name Role Phone Unavailable Primary Care Provider Unavailable Encounter Details Date Type Department Care Team Description 05/02/2008 Hospital Encounter HX [facility] Tee Dhillon M.D. [address] [place] [address] (Wo rk) Social History Tobacco [...] week 03/25/2021 How often do you attend latter day or moravian services? 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
--- OUTSIDE RECORDS SUMMARY | 2022-03-16 12:31 | XMS_ITS | Encounter Summary ---
:1950 Author Organization [facility] Address [address] [place] [address] Care Team Providers Name Role Phone Unavailable Primary Care Provider Unavailable Encounter Details Date Type Department Care Team Description 06/29/2016 Hospital Encounter [facility]X [facility] Nato Dougheryt, CALL CENTER TEAM LEADER, C.N.P. [address] [place], [place] [address] (Wo rk) Social History [...] How often do you attend orthodoxy or sabianist services? 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 documented as of this encounter Last Filed Vital Signs Vital Sign Reading Time Taken Comments Blood Pressure 157/71 06/29/2016 9:41 AM INSURANCE ACCOUNT ASSISTANT Pulse 59 06/29/2016 9:41 AM INSURANCE ACCOUNT ASSISTANT Temperature - - Respiratory Rate - - Oxygen Saturation - - Inhaled Oxygen Concentration - - Weight - - Height 173 cm (5' 8.11) 06/29/2016 9:41 AM INSURANCE ACCOUNT ASSISTANT Body Mass Index - - documented in [...] this encounter Miscellaneous Notes Miscellaneous - Mitali Méndez, CFeiMFeiAFei - 06/29/2016 9:47 AM CST *General Message Document Contains Addenda Addendum by MITALI MÉNDEZ CMA on June 29, 2016 10:54:31 INSURANCE ACCOUNT ASSISTANT Patient notified. Addendum by NATO DOUGHERTY APRN, CNP on June 29, 2016 10:04:53 INSURANCE ACCOUNT ASSISTANT From: NATO DOUGHERTY APRN OYSTER SHUCKER To: MITALI MÉNDEZ CMA; Sent: 06/29/2016 10:04:53 INSURANCE ACCOUNT ASSISTANT Subject: RE: *General Message Noted, thank you. From: MITALI MÉNDEZ CMA To: NATO DOUGHERTY APRN, CNP; Sent: 06/29/2016 09:47:06 INSURANCE ACCOUNT ASSISTANT Subject: *General Message Patient was in for B/P check today. Patient states' I haven't taken my medication yet today, I take it at night. B/P 156/73 Pulse 61 Five minutes later. B/P 157/71 Pulse 59 Source: [facility] Document Id: [id number] Electronically signed by Rajesh [facility] Paraprofessional Aide [id number] at 10/25/2016 11:39 PM CDT Miscellaneous - Mitali Méndez, C.M.A. - 06/29/2016 9:41 AM CST Ambulatory Vitals Height Weight Ambulatory Vitals Height Weight Entered On: 06/29/2016 9:45 INSURANCE ACCOUNT ASSISTANT Performed On: 06/29/2016 9:41 INSURANCE ACCOUNT ASSISTANT by MITALI MÉNDEZ HOUSE FATHER Vitals/Ht/Wt Peripheral Pulse Rate : 59 /min (LOW) Systolic Blood Pressure : 157 mmHg (HI) Diastolic Blood Pressure : 71 mmHg NIBP Mean : 100 mmHg BP Location : Left upper extremity Blood Pressure Cuff Size : Regular Height : 173 cm(Converted to: 5 ft 8 inch(es), 68 inch(es)) MITALI MÉNDEZ CMA - 06/29/2016 9:41 INSURANCE ACCOUNT ASSISTANT Source: [facility] Document Id: [id number] INSURANCE ACCOUNT ASSISTANT!9 RANCE ACCOUNT ASSISTANT Miscellaneous - Mitali Méndez, C.M.A. - 06/29/2016 9:32 AM CST Ambulatory Vitals Height Weight Ambulatory Vitals Height Weight Entered On: 06/29/2016 9:34 INSURANCE ACCOUNT ASSISTANT Performed On: 06/29/2016 9:32 INSURANCE ACCOUNT ASSISTANT by MITALI MÉNDEZ [facility] Vitals/Ht/Wt Peripheral Pulse Rate : 61 /min Systolic Blood Pressure : 156 mmHg (HI) Diastolic Blood Pressure : 73 mmHg NIBP Mean : 101 mmHg BP Location : Left upper extremity Blood Pressure Cuff Size : Regular Height : 173 cm(Converted to: 5 ft 8 inch(es), 68 inch(es)) MITALI MÉNDEZ [facility] - 06/29/2016 9:32 INSURANCE ACCOUNT ASSISTANT Source: [employer] Document Id: [id number] INSURANCE ACCOUNT ASSISTANT!9 RANCE ACCOUNT ASSISTANT documented in this encounter Plan of Treatment Not on filedocumented as of this encounter Visit Diagnoses Not on filedocumented in this encounter Additional Health Concerns Assessment Noted Time PHQ-9 Depression Total Score: 11 06/22/2016 10:[address] documented as of this encounter
--- OUTSIDE RECORDS SUMMARY | 2022-03-16 12:31 | XMS_ITS | Encounter Summary ---
:1950 Author Organization [facility] Address [address] [place] [address] Care Team Providers Name Role Phone Unavailable Primary Care Provider Unavailable Encounter Details Date Type Department Care Team Description 08/16/2016 Hospital Encounter HX [facility] FAMILYPRA Nato Dougherty, CREATIVE RECRUITER, C.N.P. [address] [place], [place] [phone] (Wo rk) Social History [...] How often do you attend sikh or bahai services? 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 lancets [facility] Dispense item 0 08/23/2014 9 covered by [...] this encounter Progress Notes Nato Dougherty, JULIÁN, CFeiNFeiP. - 08/16/2016 8:41 AM CDT Clinic Full Note CHIEF COMPLAINT/REASON FOR VISIT Blood pressure check. Not feeling well. Has had a pain in right side below ribs. Started with dizziness and feels nauseated. Fasting. HISTORY OF PRESENT ILLNESS Onesimo is here for diabetes recheck. States he has been watching diet more carefully and blood sugars have improved. Due for A1c in a month. Due for eye exam. Will schedule with Dr. Holland.Blood pressure is elevated on 2 checks today. He has hypertriglyceridemia, he was on a statin in the past and tolerated it without adverse effects. Discussed restarting statin. Depression is stable on fluoxetine. He was doing yard work 2 days ago and has muscle soreness in the right mid back. He is [facility] [place], has an appointment tomorrow to discuss an implant for pain control. MEDICATIONS aspirin 325 mg oral tablet, 325 mg, 1 tab(s), PO, Daily Centrum Silver Men's oral tablet, colchicine 0.6 mg oral tablet, 0.6 mg, 1 tab(s), PO, Once, PRN DULoxetine 30 mg oral delayed release capsule, 30 mg, 1 cap(s), Starting on 08/20/2016, PO, Daily FLUoxetine 10 mg oral capsule, 10 mg, 1 cap(s), Currently taking 2 tabs daily for 7 days. Then 1 tab daily for 7 days then stop., PO, Daily gabapentin 300 mg oral capsule, 300 mg, 1 cap(s), PO, 2xDay HumaLOG KwikPen 100 units/mL subcutaneous solution, 5-10 [...] tab(s), Narcotic Contract with [facility] [place] 06/28/16 (scanned), PO, q12hr, 0 refills rOPINIRole 2 mg oral tablet, 2 mg, 1 tab(s), with food, PO, 3xDay, 0 refills ALLERGIES morphine (Itching) PAST MEDICAL HISTORY Chronic Chronic Kidney Disease (CKD) Stage 3 GFR 30-59 Depression Major Recurrent Moderate DM2 Peripheral Neuropathy Uncontrolled Dysfunction Erectile (ED) NOS Gastroesophageal Reflux Disease (GERD ALEXANDRA) NOS Gout Arthritis Hypertension (HTN) Essential Primary NOS Hypertriglyceridemia Restless Leg Syndrome (RLS) Historical No historical problems PROCEDURES/SURGICAL HISTORY Cataract extraction and insertion of intraocular lens (10/29/2007), Carpal tunnel release (2001), Arthroscopy of shoulder with limited debridement (10/29/1995). SOCIAL HISTORY Date Time: 08/16/2016 08:11 Tobacco: Smoking Status: Current every day smoker Exposure: Patient smokes Alcohol: Use: No Results Found Recreational Drugs: Use: No Results Found Type: No Results Found FAMILY HISTORY Sister:Positive: Diabetes mellitus Brother:Positive: Diabetes mellitus; Stroke Sister:Positive: Diabetes mellitus HEALTH MAINTENANCE Adacel given today. Doing FIT for colon screen. SYSTEMS REVIEW Positive for that mentioned in the History of Present Illness and Past Medical History. All other systems were reviewed and were negative. VITAL SIGNS T: 36.0 ??C (Core) HR: 60 RR: 16 BP: 148 / 78 HT: 173 cm WT: 75.05 kg BMI: 25.08 PHYSICAL EXAMINATION GENERAL: Well-developed, well-nourished, in no acute distress. SKIN: Warm and dry. HEENT: TMs clear. Throat clear. NECK: Supple. No lymphadenopathy or thyromegaly. HEART: Regular rate and rhythm. S1, S2. No murmur. LUNGS: Clear to auscultation. No wheezes or rales. ABDOMEN: Soft, nontender. No hepatosplenomegaly. EXTREMITIES: Warm, dry. No peripheral edema. DIAGNOSTIC RESULTS Chest x-ray: No focal consolidation or pleural effusion. Cardiac silhouette and pulmonary vascularity are within the limits of normal Calcified aorta. Mild degenerative change at the acromioclavicular joint. Mild height loss of multiple mid and lower thoracic vertebra.. IMPRESSION/REPORT/PLAN Depression Major Recurrent Moderate Stable on fluoxetine, no change in medication. Ordered: OV Est Pt Level 4 - 07245 - 25 min DM2 Peripheral Neuropathy Uncontrolled Uncontrolled, continue working on diet and exercise. Recheck A1c in 1 month. Scheduling eye exam with Dr. Holland. Ordered: OV Est Pt Level 4 - 77034 - 25 min Encounter for immunization Adacel given. Ordered: tetanus/diphth/pertuss (Tdap) adult/adol, 0.5 mL, IM, Once, 08/16/16 8:35:00 CDT OV Est Pt Level 4 - 67040 - 25 min tetanus/diphtheria/pertussis, acel (Tdap) (Adacel (Tdap)) adult vaccine charge Hypertension (HTN) Essential Primary NOS Uncontrolled, adding amlodipine 2.5 mg daily. Recheck blood pressure in one week. Ordered: OV Est Pt Level 4 - 89377 - 25 min XR Chest 2 Views Hypertriglyceridemia Start atorvastatin 20 mg daily. Recheck fasting lipids and AST in one month. Ordered: atorvastatin, 20 mg = 1 tab(s), PO, Bedtime, # 90 tab(s), 3 Refill(s), Maintenance, [facility] [place] OV Est Pt Level 4 - 24547 - 25 min Orders: amLODIPine, 2.5 mg = 1 tab(s), PO, Daily, # 60 tab(s), 0 Refill(s), Maintenance, [facility] [place] AST Basic Metabolic Panel, Fasting* Consult to Ophthalmology Hemoglobin A1c Lipid Panel* Occult Blood QL Immunochem, [facility] [address] Return Visit Fam Med UR Microalbumin Random Electronically Signed By: NATO DOUGHERTY APRN CIGAR HEAD STRINGER On: 08/16/2016 10:40 AM Source: [facility] POWERCHART Document Id: [id number] documented in this encounter Nursing Notes Nato Dougherty, JULIÁN, C.NFeiP. - 08/16/2016 8:34 AM CDT Ambulatory Patient Education The following [...] or tender areas of the foot ?? [phone] [facility], [address] [place] [address], [place] [address]. All rights reserved. This information is not intended as a substitute for professional medical care. Always follow your healthcare professional's instructions. Source: [facility] WiFast Document Id: [id number] documented in this encounter Miscellaneous Notes Miscellaneous - Nato Dougherty APRN, C.N.P. - 08/16/2016 10:42 AM CDT From: NATO DOUGHERTY APRN CIGAR HEAD STRINGER To: ONESIMO WALTON Sent: 08/16/2016 10:42:15 CDT Onesimo, Chest x-ray is negative. Nato Source: [facility] [employer] Document Id: [id number] Electronically signed by Rajesh [facility] Dr[facility] Contractor [id number] at 10/26/2016 7:21 AM CDT Miscellaneous - Winter Sinhg LFeiP.N. - 08/16/2016 9:01 AM CDT PHQ-9 PHQ-9 Entered On: 08/16/2016 9:02 CDT Performed On: 08/16/2016 9:01 CDT by WINTER SINGH LPN PHQ-9 Little interest or pleasure in doing things : Several days Feeling down, depressed, or hopeless : Several days Trouble falling or staying asleep, or sleeping too much : More than half the days Feeling tired or having little energy : Nearly every day Poor appetite or overeating : Not at [...] : Somewhat difficult WINTER SINGH LPN - 08/16/2016 9:01 CDT Source: [facility] [employer] Document Id: [id number] CDT!13 Miscellaneous - Nato Dougherty APRN, C.N.P. - 08/16/2016 8:34 AM CDT Ambulatory Patient Summary [address] [id number] Visit Information Name: ONESIMO WALTON [facility] Number: [id number] Current Date: 08/16/2016 08:34:30 Physicians Attending Provider: NATO DOUGHERTY APRN CIGAR HEAD STRINGER Primary Care Provider: NATO DOUGHERTY APRN [facility] ONESIMO WALTON has been given the following [...] tablet) 1 Tablet(s), Oral, once a day New Routed to [facility] [address] [place] [address] aspirin (aspirin 325 mg oral tablet) 1 Tablet(s), Oral, once a day atorvastatin (atorvastatin 20 mg oral tablet) 1 Tablet(s), Oral, once a day (at bedtime) New Routed to [facility] [address] [place] [address] colchicine (colchicine 0.6 mg oral tablet) 1 Tablet(s), Oral, once as needed for Gout pain DULoxetine (DULoxetine 30 mg oral delayed release capsule) 1 cap, Oral, once a day Starting on 08/20/2016 FLUoxetine (FLUoxetine 10 mg oral capsule) 1 cap, Oral, once a day Currently taking 2 tabs daily for7 days. Then 1 tab daily for 7 days then stop. This is a CHANGE gabapentin (gabapentin 300 [...] 12 hours NarcoticContract with [facility] [place] 06/28/16 (scanned) rOPINIRole (rOPINIRole 2 mg oral tablet) 1 Tablet(s), Oral, three times a day with food Stop Taking the Following Medications: Medication list as of 08-16-16 08:34 Attention: If you have any medications at [...] Signed By: NATO DOUGHERTY APRN, CNP Signed On:16-AUG-2016 08:34:07 Your Allergies & Intolerances Substance Reaction Symptoms [...] or tender areas of the foot ?? [phone] [facility], [address] [place] [address], [place] [address]. All rights reserved. This information is not [...] if you dont have one. Go to [email or web address] and click on Create Your Account. Then, follow the directions to complete the online form. Youll be asked for your [facility] number which you can find at the top of this document. Your Goals/Additional instructions: Source: [facility] POWERCHART Document Id: [id number] Miscellaneous - Nato Dougherty APRN, C.N.P. - 08/16/2016 8:34 AM CDT Ambulatory Discharge Medication List [address] [id number] Visit Information Name: YOHANAONESIMO ADAMS [facility] Number: [id number] Current Date: 08/16/2016 08:34:28 Attending Provider: NATO DOUGHERTY APRN CIGAR HEAD STRINGER Primary Care Provider: NATO DOUGHERTY APRN CIGAR HEAD STRINGER ONESIMO WALTON RICHARD has been given the [...] tablet) 1 Tablet(s), Oral, once a day New Routed to [address] [address] aspirin (aspirin 325 mg oral tablet) 1 Tablet(s), Oral, once a day atorvastatin (atorvastatin 20 mg oral tablet) 1 Tablet(s), Oral, once a day (at bedtime) New Routed to [address] [address] colchicine (colchicine 0.6 mg oral tablet) 1 Tablet(s), Oral, once as needed for Gout pain DULoxetine (DULoxetine 30 mg oral delayed release capsule) 1 cap, Oral, once a day Starting on 08/20/2016 FLUoxetine (FLUoxetine 10 mg oral capsule) 1 cap, Oral, once a day Currently taking 2 tabs daily for7 days. Then 1 tab daily for 7 days then stop. This is a CHANGE gabapentin (gabapentin 300 [...] 12 hours NarcoticContract with [facility] [place] 06/28/16 (scanned) rOPINIRole (rOPINIRole 2 mg oral tablet) 1 Tablet(s), Oral, three times a day with food Stop Taking the Following Medications: Medication list as of 08-16-16 08:34 Attention: If you have any medications at [...] emergency. Electronically Signed By: NATO DOUGHERTY APRN CIGAR HEAD STRINGER Signed On:16-AUG-2016 08:34:07 Additional Information: Source: [facility] POWERCHART Document Id: [id number] Miscellaneous - Winter Singh L.P.N. - 08/16/2016 8:14 AM CDT Ambulatory Vitals Height Weight Ambulatory Vitals Height Weight Entered On: 08/16/2016 8:15 CDT Performed On: 08/16/2016 8:14 CDT by WINTER SINGH LPN Vitals/Ht/Wt Systolic Blood Pressure : 148 mmHg (HI) Diastolic Blood Pressure : 78 mmHg NIBP Mean : 101 mmHg BP Location : Left upper extremity Blood Pressure Cuff Size : Regular Height : 173 cm(Converted to: 5 ft 8 inch(es), 68 inch(es)) WINTER SINGH LPN - 08/16/2016 8:14 CDT Source: [facility] [employer]vantCHART Document Id: [id number] CDT!8 [place] - Winter Singh L.P.N. - 08/16/2016 8:11 AM CDT Adult Management Professional Intake/History Adult Management Professional Intake/History Entered On: 08/16/2016 8:14 CDT Performed On: 08/16/2016 8:11 CDT by WINTER SINGH LPN Intake Chief Complaint : Blood pressure check. Not feeling well. Has had a pain in right side below ribs. Started with dizziness and feels nauseated. Fasting. Temperature Core : 36.0 DegC(Converted to: 96.8 DegF) (LOW) Peripheral Pulse Rate : 60 /min Respiratory Rate : 16 /min Heart Rhythm : Regular Systolic Blood Pressure : 154 mmHg (HI) Diastolic Blood Pressure : 84 mmHg NIBP Mean : 107 mmHg BP Location : Left upper extremity Blood Pressure Cuff Size : Regular Height : 173 cm(Converted to: 5 ft 8 inch(es), 68 inch(es)) Actual Weight : 75.05 kg(Converted to: 165 lb 7 oz) Weight Source : Standing scale Dosing Weight Clinic : 75.05 kg Clinic BSA : 1.9 Body Mass Index : 25.08 kg/m2 WINTER SINGH LPN - 08/16/2016 8:11 CDT General Info Information Given By : Patient Preferred Communication Mode : Verbal Languages : Algerian Is Patient Female and 13-50 no hysterectomy : No WINTER SINGH LPN - 08/16/2016 8:11 CDT Subjective Pain Symptoms : Yes WINTER SINGH LPN - 08/16/2016 8:11 CDT Pain Scale Pain Scale Verbal 0-10 : Open WINTER SINGH LPN - 08/16/2016 8:11 CDT Pain Pain Assessment Grid Pain 1 Location : Abdomen Laterality : Right Intensity : 5 Time Pattern : Constant WINTER SINGH LPN - 08/16/2016 8:11 CDT Dependent Habits Exposure to Tobacco Smoke : Patient smokes Smoking Status : Current every day smoker Tobacco 2A : Yes Tobacco Use/Currently Using : Yes Tobacco Use/Last 30 Days : Yes Tobacco Use/Last 12 months : Yes Type : Cigarettes: Less than 20 per day Tobacco Use/Advised to Quit : Yes WINTER SINGH LPN - 08/16/2016 8:11 CDT Source: [employer] POWERCHART Document Id: [id number] CDT!43 documented in this encounter Plan of Treatment Not on filedocumented as of this encounter Procedures Procedure Name Priority Date/Time Associated Diagnosis Comme nts DX CHEST AP OR PA Routine 08/16/2016 8:49 AM Resu lts for this AND LATERAL 2 VIEWS CDT procedur e are in the results section. documented in this encounter Results DX Chest AP or PA and Lateral 2 Views (08/16/2016 8:49 AM CDT) Anatomical Region Laterality Modality Chest N/A Radiographic Imaging Specimen (Source) Anatomical Collection Method Collection Time Re ceived Time Location / / Volume Laterality 08/16/2016 8:49 AM CDT Addenda Addendum by Provider, Delmy Villatoro [place] 08/16/2016 8:49 AM CDT RAD^^^OW XR Chest 2 Views 08/16/2016 08:49:34 Impressions 08/16/2016 9:31 AM CDT See report above. Narrative 08/16/2016 9:31 AM CDT EXAM: XR Chest 2 Views INDICATION: hypertension uncontrolled COMPARISON: No prior for comparison. FINDINGS: No focal consolidation or pleu ral effusion. Cardiac silhouette and pulmonary vascularity are within the limits of normal. Calcified aorta. Mild degenerative stafford e at the acromioclavicular joint. Mild height loss of multiple mid and lower thoracic vertebra. Procedure Note Cayetano Martinez M.D. / ProviderMathieu M.D. - 11/01/2016 EXAM: XR Chest 2 Views INDICATION: hypertension uncontrolled COMPARISON: No prior for comparison. FINDINGS: No focal consolidation or pleu ral effusion. Cardiac silhouette and pulmonary vascularity are within the limits of normal. Calcified aorta. Mild degenerative stafford e at the acromioclavicular joint. Mild height loss of multiple mid and lower thoracic vertebra. IMPRESSION: See report above. Danii Lopez(R), RSony(R)(M) IMG DIAGNOSTIC IMAG ING PROCEDURES documented in this encounter Visit Diagnoses Not on filedocumented in this encounter Additional Health Concerns Assessment Noted Time PHQ-9 Depression Total Score: 7 08/16/2016 9:01 AM CDT documented as of this encounter
--- OUTSIDE RECORDS SUMMARY | 2022-03-16 12:31 | XMS_ITS | Encounter Summary ---
:1950 Author Organization [facility] Address [address] [place] [address] Care Team Providers Name Role Phone Unavailable Primary Care Provider Unavailable Encounter Details Date Type Department Care Team Description 02/14/2012 Hospital Encounter HX [facility] Yosi Garces M.D. [address] [place] [address], [address] [place] [address] (Wo rk) Social History Tobacco Use Types [...] week 03/25/2021 How often do you attend mormon or anglican services? 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 0 05/201107/22/2017 tablet documented as of this encounter Consult Notes Ranulfo Garces M.D. - 02/14/2012 1:23 PM CDT [id number] CHIEF COMPLAINT / REASON FOR VISIT Referring physician: Deann Diggs. Bilateral lower extremity numbness and tingling. HISTORY OF PRESENT ILLNESS Mr. Walton is a pleasant 62-year-old male who was diagnosed with type 2 diabetes mellitus approximately 15 years ago. He then was shortly after diagnosed with a peripheral neuropathy. He feels that hesaw a neurologist initially when this diagnosis was given to him. Over the past 10 years he has had slowly, progressively worsening paresthesias involving the bilateral lower extremities. He has numbness that encompasses the entire feet bilaterally. The numbness extends to approximately the ankles bilaterally. He then can experience a burning, tingling sensation extending from the ankles to the levelof the knees. It typically does not extend proximal to the knees. He does not have any paresthesias in the upper extremities. He denies any focal weakness in his upper and lower extremities. He denies any changes in his bowel or bladder habits, fever, or recent unintentional weight loss. He does admitto feeling fatigued and does sleep a significant amount. He very occasionally will have low back pain but that is typically not a component of his pain. He rates his pain at its worst as a 9/10 and at its best as a 1/10. It can be especially bothersome at night for him when he is attempting to sleep. He has been tried on a variety of different medications including gabapentin which made him very fatigued so that was discontinued. He was also recently taking Lyrica, which he did think was helpful butagain was making him very fatigued so that was discontinued. He has been using OxyContin 80 mg in the morning and 40 mg in the evening and then he will use 2 to 4 10/325 Percocet per day for breakthrough pain. He has been taking these medications for several years. PAST MEDICAL/SURGICAL HISTORY Diabetes mellitus, hypertension, peripheral neuropathy, major depression and GERD. CURRENT MEDICATIONS 1. Aspirin 325 mg daily. 2. Insulin. 3. Wellbutrin 300 mg daily. 4. Coreg 12.5 mg 1/2 tablet twice daily. 5. Centrum daily. 6. Celexa 40 mg daily. 7. NSAID 100 mg twice daily with food. 8. Humalog. 9. Lantus. 10. Zestoretic 1 tablet daily. 11. Mevacor 40 mg daily. 12. Prilosec 20 mg daily. 13. OxyContin 80 mg every a.m. and 40 mg q.h.s. 14. Oxycodone/Acetaminophen 10/325 1 tablet every 6 hours as needed for pain. ALLERGIES Morphine. SOCIAL HISTORY The patient lives in [place]. 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 It has been two months since he has worked there and he is currently between jobs. He smokes one-half pack per day of cigarettes. PHYSICAL EXAMINATION GENERAL: Pleasant 62-year-old male in no acute distress. NEURO: Oriented to person, place and time. Appropriate mood and affect. GAIT: Normal josé miguel and stride. Toe and heel walking are normal. EXTREMITIES: Strength: All major muscle groups of the bilateral upper and lower extremities have normal and symmetric muscle strength, bulk and tone. Reflexes: Bilateral upper extremity muscle stretch reflexes were hyporeflexic but symmetric. Patellar tendon 0/0, Achilles -4/-4. Sensation: Decreased sensation to pinprick in a stocking distribution to the level of the mid jhaveri bilaterally. Decreased vibratory sensation to the level of -3 at the first MTP joint and -1 at the medial malleolus. Straightleg raise: Straight leg raise is negative for radicular pain or paresthesias bilaterally. MUSCULOSKELETAL: Spine: Preserved lumbar spine range of motion without pain. IMPRESSION/REPORT/PLAN 1. Bilateral lower extremities paresthesias. 2. Peripheral neuropathy. 3. Diabetes mellitus. 4. Hypertension. Mr. Walton's symptoms and examination would be most consistent with a peripheral neuropathy likely secondary to his diabetes mellitus. He has been tried on a very appropriate number of medications by Dr. Riddle. PLAN 1. We discussed various options for management. Unfortunately, Mr. Walton has not been able to tolerate gabapentin or Lyrica secondary to fatigue that has caused him. Other medications to consider in this class would include something such lamotrigine or oxcarbazepine. However, Mr. Walton did experience significant drowsiness with the Lyrica and gabapentin so I am not sure he would be able to tolerate those medications. 2. Other possibilities would include medications that would act on the reuptake of serotonin/norepinephrine. Medications to be considered could include nortriptyline or Cymbalta. However, Mr. Walton does take Wellbutrin and Celexa for his major depression and so I would not add that to what he is currently taking. However, if those medications were to be changed in the future those could be options to be considered. 3. We also discussed the possibility of using a topical cream. I discussed with him the possibility of amitriptyline/ketamine cream that could be used as well as potentially capsaicin. He would be interested in this but he has limited funds for medications so we are going to see what the cost of the am itriptyline/ketamine cream would be for him and let him know that, but those would be options as well to consider in the future depending on how he is progressing. 4. With respect to his opioid use, I did discuss with him that that could also be contributing to his fatigue and he did voice agreement with this as well. I agree with Dr. Riddle that if this were going to be used penitentiary he may benefit from being seen in a comprehensive pain clinic, especially with his longstanding depression as well to try to manage his opioids. 5. We will plan on being in contact with Mr. Walton after we have found out the information with respect to the cost of the amitriptyline/ketamine topical solution. He will be in contact with us priorto that time if he notes any worsening or worrisome symptoms which we went over in detail today. He voiced agreement and understanding with this plan. Ranulfo Garces M.D./hiwot cc: Deann Riddle Electronically Signed By: RANULFO GARCES MD On: 02/22/2012 08:29 AM Modified by and Electronically Signed by: RANULFO GARCES MD On: 02/22/2012 08:29 AM Source: [facility] MHSDOLBEYNONRADSYS Document Id: [id number] documented in this encounter Nursing Notes Marie Ambrosio R.T.(Yogesh) - 02/29/2012 9:00 AM CDT Note sent Consult note from 02/14/2012 faxed to Deann (Rudy Riddle M.D.). Electronically Signed By: MARIE AMBROSIO On: 02/29/2012 09:01 AM Source: [facility] POWERbitmovin Document Id: [id number] documented in this encounter Miscellaneous Notes Miscellaneous - Winter Singh L.P.N. - 06/17/2016 11:06 AM CST *Medication Refill Msg Document Contains Addenda Addendum by WINTER SINGH LPN on June 17, 2016 11:42:57 IT TECHNICAL SPECIALIST Spoke with: ( x_ ) Patient ( _ ) Parent ( _ ) Spouse ( _ ) Child ( ) Other: _ Call back telephone number: _ Reason for Call: -Notified Rx completed and sent to [facility] Chief Complaint: _ Patient/Caller response to Education/Information given: ( [...] language for Healthcare discussion: _ Was an corporate travel manager used for this call? _ Other ( --_ ) Addendum by NATO ZACARIAS APRN, CNP on June 17, 2016 11:32:58 IT TECHNICAL SPECIALIST From: NATO ZACARIAS APRN LOCATOR SPECIALIST To: FINESSE Zacarias Nurse; Sent: 06/17/2016 11:32:58 IT TECHNICAL SPECIALIST Subject: RE: *Medication Refill Msg done From: WINTER SINGH LPN ( Deann Nurse) To: NATO ZACARIAS APRN LOCATOR SPECIALIST; Sent: 06/17/2016 11:06:52 IT TECHNICAL SPECIALIST Subject: *Medication Refill Msg Caller is: ( x ) Patient ( ) Mother ( ) Father ( ) Spouse ( ) Daughter ( ) Son ( ) Pharmacy ( ) Other: Provider: Nato Zacarias CNP Pharmacy: [facility] Name of Medications Needing Refill: Ropinirole HCL 2 mg Last Refill Date: Additional Information:Patient is Establishing care on 06/22/2016 with Nato Zacarias CNP. Wandering if you would refill his Ropinirole. 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 - 02/14/2012 2:24 PM CDT Ambulatory [place] [address] Visit Information Name: ONESIMO WALTON Current Date: 02/14/2012 14:24:40 Physicians Attending Provider: RANULFO GARCES MD Primary Care Provider: PCP, ELSEWHERE Your Medications Here is a list of your medications. It is important to take your medications as directed. Use a pillbox or chart to help remind you to take your medications. Please let your doctor or nurse know if you have problems taking your medications. Medication/Strength Dose Route Frequency Indications/Special Instructions/Comments rOPINIRole (Requip 1 mg oral tablet) 1 mg Oral three times a day oxycodone-acetaminophen (Percocet 10/325 oral tablet) 1 tab(s) Oral every 6 hours as needed for PainNo more than 4,000mg acetaminophen/24hrs oxycodone (OxyContin 40 mg oral tablet, extended release) 80 mg Oral every 12 hours 2 tabs PO qam and 1 tab PO qhs omeprazole (omeprazole 20 mg oral delayed release capsule) 20 mg Oral once a day lisinopril-hydrochlorothiazide (lisinopril-hydrochlorothiazide 10 mg-12.5 mg oral tablet) 1 tab(s) Oral once a day (Zestoretic) multivitamin with minerals (Centrum Silver Men's oral tablet) lovastatin (lovastatin 40 mg oral tablet) 40 mg Oral once a day (at bedtime) insulin glargine (Lantus 100 units/ml subcutaneous solution) Subcutaneous once a day (at bedtime) flurbiprofen (flurbiprofen 100 mg oral tablet) 100 mg Oral two times a day citalopram (citalopram 40 mg oral tablet) 40 mg Oral once a day carvedilol (carvedilol 25 mg oral tablet) 25 mg Oral two times a day buPROPion (buPROPion XL 300 mg/24 hours oral extended release tablet) 300 mg Oral once a day aspirin (aspirin 325 mg oral tablet) 325 mg Oral once a day Attention: If you have any medications at home that are not on this list, DO NOT take them until youcontact your provider for clarification. Your Allergies & Intolerances Substance Reaction Symptoms Category Comments morphine Itching Drug Your Problem List Problem Status Onset Comments No Problems found Your Upcoming Appointments Date Time Location Reason Provider No Appointments found Your Goals/Additional instructions: Source: [facility] POWERCHART Document Id: [id number] Miscellaneous - Ranulfo Garces M.D. - 02/14/2012 2:24 PM CDT Amb[place] [address] Visit Information Name: ONESIMO WALTON Visit Date: 02/14/2012 14:24:39 Attending Provider: RANULFO GARCES MD Primary Care Provider: PCP, ONESIMO SOLIZ has been given the following list of medications: Your Medications It is important to take your medications as directed. Use a pill box or chart to help remind you to take your medications. Please let your doctor or nurse know if you have problems taking your medications. Medication/Strength Dose Route Frequency Indications/Special Instructions/Comments rOPINIRole (Requip 1 mg oral tablet) 1 mg Oral three times a day oxycodone-acetaminophen (Percocet 10/325 oral tablet) 1 tab(s) Oral every 6 hours as needed for PainNo more than 4,000mg acetaminophen/24hrs oxycodone (OxyContin 40 mg oral tablet, extended release) 80 mg Oral every 12 hours 2 tabs PO qam and 1 tab PO qhs omeprazole (omeprazole 20 mg oral delayed release capsule) 20 mg Oral once a day lisinopril-hydrochlorothiazide (lisinopril-hydrochlorothiazide 10 mg-12.5 mg oral tablet) 1 tab(s) Oral once a day (Zestoretic) multivitamin with minerals (Centrum Silver Men's oral tablet) lovastatin (lovastatin 40 mg oral tablet) 40 mg Oral once a day (at bedtime) insulin glargine (Lantus 100 units/ml subcutaneous solution) Subcutaneous once a day (at bedtime) flurbiprofen (flurbiprofen 100 mg oral tablet) 100 mg Oral two times a day citalopram (citalopram 40 mg oral tablet) 40 mg Oral once a day carvedilol (carvedilol 25 mg oral tablet) 25 mg Oral two times a day buPROPion (buPROPion XL 300 mg/24 hours oral extended release tablet) 300 mg Oral once a day aspirin (aspirin 325 mg oral tablet) 325 mg Oral once a day Attention: If you have any medications at home that are not on this list, DO NOT take them until youcontact your provider for clarification. Additional Information: Source: [facility] POWERCHART Document Id: [id number] Miscellaneous - Huong Navas P.A.-C. 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 Intake/History Entered On: 02/14/2012 13:58 CDT Performed On: 02/14/2012 13:58 CDT by HUONG NAVAS Intake Systolic Blood Pressure : 170mmHg (>HHI) Diastolic Blood Pressure : 84mmHg NIBP Mean : 113mmHg BP Location : Left upper extremity Blood Pressure Cuff Size : Regular Actual Weight : 75.2kg(Converted to: 165lb 13oz) Weight Source : Standing scale Dosing Weight Clinic : 75.20kg HUONG NAVAS - 02/14/2012 13:58 CDT Subjective Pain Symptoms : No HUONG NAVAS - 02/14/2012 13:58 CDT Dependent Habits Tobacco Use/Currently Using : Yes Tobacco Use/Advised to Quit : Yes Exposure to Tobacco Smoke : Patient smokes Smoking Status : Current every day smoker HUONG NAVAS - 02/14/2012 13:58 CDT Tobacco Use Grid Type : Cigarettes Cigarette Use Packs/Day : 0.5 HUONG NAVAS - 02/14/2012 13:58 CDT Allergy Allergies (Active) morphine Estimated Onset Date: Unspecified ; Reactions: Itching ; Created By: HUONG NAVAS; Reaction Status: Active ; Category: Drug ; Substance: morphine ; Type: Allergy ; Updated By: HUONG NAVAS; Reviewed Date: 02/14/2012 13:57 CDT Source: [facility] POWERCHART Document Id: [id number] Miscellaneous - Huong Navas P.A.-C. - 02/14/2012 1:58 PM CDT Ambulatory Vitals Height Weight Ambulatory Vitals Height Weight Entered On: 02/14/2012 13:59 CDT Performed On: 02/14/2012 13:58 CDT by HUONG NAVAS Vitals/Ht/Wt Systolic Blood Pressure : 172mmHg (>HHI) Diastolic Blood Pressure : 88mmHg NIBP Mean : 116mmHg BP Location : Left upper extremity Blood Pressure Cuff Size : Regular HUONG NAVAS - 02/14/2012 13:58 CDT [facility] Document Id: [id number] documented in this encounter Plan of Treatment Not on filedocumented as of this encounter Visit Diagnoses Not on filedocumented in this encounter
[2022-03-16 12:38] LABS: Est. Creatinine Clearance* 20.22; Estimated Glomerular Filt Rate 19 ml/min
[2022-03-16 12:56] VITALS: BP 155/75; PULSE 68; RESP 16; O2SAT 96
--- NOTE | 2022-03-16 13:43 | ED.NURSE ---
Patient was discharged. Prescription for steroids sent into patients pharmacy. All questions answered and left with .
[2022-03-16 21:11] LABS: Alanine Aminotransferase* 20 U/L (4-50); Albumin* 4.3 g/dL (3.3-5.0); Alkaline Phosphatase* 92 U/L (40-150); Aspartate Amino Transferase* 24 U/L (12-35); Bilirubin Direct* 0.3 mg/dL (0.0-0.5); Bilirubin Total* 0.4 mg/dL (0.1-1.5); Blood Urea Nitrogen* 59 mg/dL (7-30); C Reactive Protein* 1.1 mg/dL (0.5-1.0); Calcium* 7.8 mg/dL (8.4-10.6); Carbon Dioxide* 22 mmol/L (20-32); Chloride* 105 mmol/L (96-114); Creatinine* 3.4 mg/dL (0.5-1.5); Glucose* 71 mg/dL (60-115); Potassium* 4.3 mmol/L (3.6-5.1); Sodium* 139 mmol/L (135-149); Total Protein* 7.5 g/dL (6.0-8.3)
== END 2022-03-16 13:46 | disposition home or self-care (01) ==
PROVIDERS: Emergency Provider Family Medicine; PCP Family Medicine
DX: M54.16 Radiculopathy, lumbar region (principal); I12.9 Hypertensive chronic kidney disease with stage 1 through stage 4 chronic kidney disease, or unspecified chronic kidney disease; N18.30 Chronic kidney disease, stage 3 unspecified; E11.22 Type 2 diabetes mellitus with diabetic chronic kidney disease; E11.40 Type 2 diabetes mellitus with diabetic neuropathy, unspecified; E78.5 Hyperlipidemia, unspecified; Z79.899 Other long term (current) drug therapy; Z79.82 Long term (current) use of aspirin; Z79.891 Long term (current) use of opiate analgesic; Z87.891 Personal history of nicotine dependence; Z82.49 Family history of ischemic heart disease and other diseases of the circulatory system; Z83.3 Family history of diabetes mellitus; D63.1 Anemia in chronic kidney disease
CPT/HCPCS: 36415; 72100; 80048; 80076; 81001; 85025; 86140; 99284

== ENCOUNTER 2022-03-31 07:43 | Outpatient (CLI) | payer MEDICARE, BC, SELFPAY ==
--- OUTSIDE RECORDS SUMMARY | 2022-03-31 07:45 | XMS_ITS | Clinical Summary ---
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 Respiratory Rate 20 05/08/2020 12:26 AM WAREHOUSE LEAD Oxygen Saturation 96% 03/17/2021 10:15 AM CDT Inhaled Oxygen Concentration - - Weight 83.9 kg (185 lb) 03/17/2021 10:15 AM CDT Height 175.3 cm (5' 9.02) 05/07/2020 8:29 PM WAREHOUSE LEAD Body Mass Index 27.31 05/07/2020 8:29 PM WAREHOUSE LEAD Plan of Treatment Health Maintenance Due Date Last Done Comments Tdap 01/30/1963 Hepatitis C screening for age 0901/30/1970 18-79 Pneumococcal series for age 65+ (2 02/13/2011 02/13/2010 - PCV) Zoster (shingles) series for age 1103/29/2012 02/02/2012 50+ (2 of 3) Colonoscopy through age 75 02/05/2016 02/04/2006 ([facility]) Medicare Wellness for age 65+ 01/30/2017 BMI [...] Problems Progress BLOOD PRESSURE Blood Pressure No McInty re, - MAINTAINS BP Rudy less than MD Venkata 140/90 Results Not on filefrom Last 3 Months Insurance Payer Benefit Plan / Subscriber ID Effective Phone Address T ype Group Dates WC WORKERS HAUL WORKERS [id number] Effective for [id number] COMP COMP all dates [address] [place] [address] [employer]UL WORKERS HAUL WORKERS [id number] 2008-Pres [phone] [address] COMP COMP ent [address] [place] [address] MEDICARE PART MEDICARE PART [id number] 2019-Prese ATT N: CLAIMS B - HB USE B HB ONLY nt [address] [place] [address] [employer] MR ANDRAE DAN [id number] 2019-Prese [address] [address] [place], [place] ONLY [id number] Onesimo Walton Workers Comp Self 1950 [id number] [phone] Oracio HERNANDEZ (Work) [id number] Onesimo Walton Workers Comp Self 1950 [id number] [phone] Oracio HERNANDEZ (Work) [id number] Care Teams Pet Ambassador Relationship Specialty Start Date End Date Pcp, No PCP - General 04/17/16 . Casa Lucia MD Ophthalmology Ophthalmology Surgery 12/22/11 [address] [facility] [address] [place] [address]
--- OUTSIDE RECORDS SUMMARY | 2022-03-31 07:46 | XMS_ITS | Encounter Summary ---
:1950 Author Organization [facility] Address [address] [place] [address] Care Team Providers Name Role Phone Elsewhere, Pcp Primary Care Provider Unavailable Reason for Referral Outpatient (Routine) - Closed Specialty Diagnoses / Procedures Referred By Contact Refer red To Contact Diagnoses Follow Up Examination Status Post Surgery Jayjay Pak P.A.-C. [facility] Procedures US Lower Extremity Arteries Bilateral US Lower Extremity Artery Graft Bilateral [address] [place] [phone] Referral ID Status Reason Start Date Expiration Date Visits Requ ested Visits Authorized [id number] Closed 10/23/2021 10/23/2022 1 1 Reason for Visit Outpatient (Routine) - Closed Specialty Diagnoses / Procedures Referred By Contact Refer red To Contact Diagnoses Follow Up Examination Status Post Surgery Jayjay Pak P.A.-C. [facility] Procedures US Lower Extremity Arteries Bilateral US Lower Extremity Artery Graft Bilateral [address] [place] [phone] Referral ID Status Reason Start Date Expiration Date Visits Requ ested Visits Authorized [id number] Closed 10/23/2021 10/23/2022 1 1 Encounter Details Date Type Department Care Team Description 02/23/2022 Hospital Encounter Department of Jayjay Pak Follow Up Examination Radiology, Santiago Escobar P.A.-C. Status Post Surgery Building, in [address] [place] [address] [place] [phone] [place], [place] [phone] (Work) [phone] Social History Tobacco Use Types Packs/Day Years [...] How often do you attend christianity or zoroastrianism services? 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
--- OUTSIDE RECORDS SUMMARY | 2022-03-31 07:46 | XMS_ITS | Encounter Summary ---
:1950 Author Organization [facility] Address [address] [place] [address] Care Team Providers Name Role Phone Elsewhere, Pcp Primary Care Provider Unavailable Reason for Referral Outpatient (Routine) - Closed Specialty Diagnoses / Procedures Referred By Contact Refer red To Contact Diagnoses Follow Up Examination Status Post Surgery Jayjay Pak P.A.-C. [facility] Procedures Lower Extremity Arterial (MIMI) - Exercise (Claudication) [address] [place], [place] [phone] Referral ID Status Reason Start Date Expiration Date Visits Requ ested Visits Authorized [id number] Closed 10/23/2021 10/23/2022 1 1 Reason for Visit Outpatient (Routine) - Closed Specialty Diagnoses / Procedures Referred By Contact Refer red To Contact Diagnoses Follow Up Examination Status Post Surgery Jayjay Pak P.A.-C. [facility] Procedures Lower Extremity Arterial (MIMI) - Exercise (Claudication) [address] [place], [place] [phone] Referral ID Status Reason Start Date Expiration Date Visits Requ ested Visits Authorized [id number] Closed 10/23/2021 10/23/2022 1 1 Encounter Details Date Type Department Care Team Description 02/23/2022 Hospital Encounter Department of Jayjay Pak Arterial Disease (HCC) (Primary Dx); Vascular Medicine in [place] Esc[facility] Follow Up Examination Status Post Surger y [place], [place] [address] [facility] [address] [place] [phone] Social History Tobacco Use Types Packs/Day Years [...] How often do you attend evangelical or mandaen services? 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
--- OUTSIDE RECORDS SUMMARY | 2022-03-31 07:46 | XMS_ITS | Encounter Summary ---
:1950 Author Organization [facility] Address [address] [place] [address] Care Team Providers Name Role Phone Elsewhere, Pcp Primary Care Provider Unavailable Encounter Details Date Type Department Care Team Description 11/04/2021 Hospital Department of [place], Hypertension And Chronic Kidney Disease Stage 1 To 4; Encounter Laboratory Hui E, Chronic Kidney Disease Stage 4 Glomerular Filtration Rate 15-29 (HCC); Medicine in ZIGZAGGER, C.N.P., Hyperparathyro idism Secondary (HCC); Kylah Phillips.N.P. Anemia Of Chron ic Renal Disease [address] [place] [address] Social History Tobacco [...] How often do you attend tenriism or nondenominational services? 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 iron- 1 mg [...] Organization Address City/State/ZIP Code Phon e Number [facility]- [address] [place] [address] [place] [address] System in [place] [address] [facility] (ABNORMAL) Urinalysis with Microscopic: Urine, Midstream (11/04/2021 [...] 8.0 11/04/2021 9:43 AM CDT FB60 Specific [place] 1.015 1.001 - 1.035 11/04/2021 9:43 AM [...] Organization Address City/State/ZIP Code Phon e Number [facility]- [facility] [place] [address] [facility] [address] [place] [address] [address] documented in this encounter Visit [...] documented as of this encounter Care Teams Radio Dispatcher Relationship Specialty Start Date End Date Elsewhere, Pcp PCP - General Family Medicine 01/29/20 documented as of this encounter
--- OUTSIDE RECORDS SUMMARY | 2022-03-31 07:46 | XMS_ITS | Encounter Summary ---
:1950 Author Organization [facility] Address [address] [place] [address] Care Team Providers Name Role Phone Elsewhere, Pcp Primary Care Provider Unavailable Reason for Visit Appointment Request (Routine) - Authorized Specialty Diagnoses / Procedures Referred By Contact Refer red To Contact Nephrology and Hypertension Referral ID Status Reason Start Date Expiration Date Visits V isits Requested Authorized [id number] Authorized 03/03/2022 03/03/2023 1 Encounter Details Date Type Department Care Team Description 03/23/2022 External Outreach Division of Nephrology Yang [place]on No Show and Hypertension in [place], [place] [address] [facility] [address] [place] [phone] (Wo rk) Social History Tobacco Use Types [...] How often do you attend anglican or restorationist services? 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
--- OUTSIDE RECORDS SUMMARY | 2022-03-31 07:46 | XMS_ITS | Encounter Summary ---
:1950 Author Organization [facility] Address [address] [place] [address] Care Team Providers Name Role Phone Elsewhere, Pcp Primary Care Provider Unavailable Reason for Visit Reason Comments Med Refill Encounter Details Date Type Department Care Team Description 01/20/2022 Refill Division of Nephrology and Hui Delgado Med Refill Hypertension in [place], MOBILE SALES EXPERT, C.N.P., D.N.P. [place] [address] [place] [address] Social History Tobacco Use Types Packs/Day [...] How often do you attend scientology or church services? 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
--- OUTSIDE RECORDS SUMMARY | 2022-03-31 07:46 | XMS_ITS | Encounter Summary ---
:1950 Author Organization [facility] Address [address] [place] [address] Care Team Providers Name Role Phone Elsewhere, Pcp Primary Care Provider Unavailable Reason for Visit Reason Comments Chronic Kidney Disease And hypertension Outpatient (Routine) - Closed Specialty Diagnoses / Procedures Referred By Contact Refer red To Contact Nephrology and Diagnoses Hypertension And Chronic Kidney Disease Stage 1 To 4 [facility] Hypertension JULIÁN Reddy, C.N.P., D.N.P. [address] [place] [address] Referral ID Status Reason Start Date Expiration Date Visits Requ ested Visits Authorized [id number] Closed 09/11/2021 09/11/2022 1 1 Encounter Details Date Type Department Care Team Description 09/28/2021 Nurse Only Division of Nephrology [facility] JULIÁN Reddy, C.N.P., D.N.P. Chronic Kidney Disease and Hypertension in [facility] Abbey Oracio, R.NFei [address] [place] [phone] (And hypertension) [place], [place] [address] [place] [phone] Social History Tobacco Use Types Packs/Day [...] How often do you attend nondenominational or jew services? 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
--- OUTSIDE RECORDS SUMMARY | 2022-03-31 07:46 | XMS_ITS | Encounter Summary ---
:1950 Author Organization [facility] Address [address] [place] [address] Care Team Providers Name Role Phone Elsewhere, Pcp Primary Care Provider Unavailable Reason for Referral Outpatient (Routine) - Closed Specialty Diagnoses / Procedures Referred By Contact Refer red To Contact Diagnoses Follow Up Examination Status Post Surgery Jayjay Pak P.A.-C. [facility] Procedures US Lower Extremity Arteries Bilateral US Lower Extremity Artery Graft Bilateral [address] [place], [place] [address] Referral ID Status Reason Start Date Expiration Date Visits Requ ested Visits Authorized [id number] Closed 10/23/2021 10/23/2022 1 1 Outpatient (Routine) - Closed Specialty Diagnoses / Procedures Referred By Contact Refer red To Contact Diagnoses Follow Up Examination Status Post Surgery Jayjay Pak P.A.-C. [facility] Procedures US Aorta Iliac Arteries Bilateral with Doppler [address] [place], [place] [address] Referral ID Status Reason Start Date Expiration Date Visits Requ ested Visits Authorized [id number] Closed 10/23/2021 10/23/2022 1 1 Outpatient (Routine) - Closed Specialty Diagnoses / Procedures Referred By Contact Refer red To Contact Vascular Medicine Jayjay Pak, [facility] alan Ervin [address] [place], [place] [address] Referral ID Status Reason Start Date Expiration Date Visits Requ ested Visits Authorized [id number] Closed 10/23/2021 10/23/2022 1 1 Outpatient (Routine) - Closed Specialty Diagnoses / Procedures Referred By Contact Refer red To Contact Diagnoses Follow Up Examination Status Post Surgery Jayjay Pak P.A.-C. [facility] Procedures Lower Extremity Arterial (MIMI) - Exercise (Claudication) [address] [place], [place] [phone] Referral ID Status Reason Start Date Expiration Date Visits Requ ested Visits Authorized [id number] Closed 10/23/2021 10/23/2022 1 1 Outpatient (Routine) - Closed Specialty Diagnoses / Procedures Referred By Contact Refer red To Contact Diagnoses Follow Up Examination Status Post Surgery Jayjay Pak P.A.-C. [facility] Procedures ECG 12 Lead [address] [place] [phone] Referral ID Status Reason Start Date Expiration Date Visits Requ ested Visits Authorized [id number] Closed 10/23/2021 10/23/2022 1 1 Encounter Details Date Type Department Care Team Description 10/23/2021 Orders Only Department of Vascular Jayjay Pak [facility] in [facility] Elver Escobar Status Post Surgery [place] [address] [place] [address] (Primary Dx) [address] [place], [place] [phone] Social History Tobacco Use Types Packs/Day Years [...] How often do you attend restorationist or jehovah's witness services? 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 Plan of Treatment Scheduled Referrals Name Type Priority Associated Diagnoses Order S [facility] Vascular Medicine Outpatient Referral Routine Exp ected: [...] Signature Ventricular Rate 78 BPM MUSE ECG/Min VT Interval 160 ms MUSE QRSD Interval 144 ms MUSE QT Interval 424 ms MUSE QTC Interval 483 ms MUSE P [place] 69 degrees MUSE R [place] -4 degrees MUSE T Wave [place] 20 degrees MUSE Specimen Anatomical Collection Method [...] as of this encounter Care Teams Manager Furniture Relationship Specialty Start Date End Date Elsewhere, Pcp PCP - General Family Medicine 01/29/20 documented as of this encounter
--- OUTSIDE RECORDS SUMMARY | 2022-03-31 07:46 | XMS_ITS | Encounter Summary ---
:1950 Author Organization [facility] Address [address] [place] [address] Care Team Providers Name Role Phone Elsewhere, Pcp Primary Care Provider Unavailable Reason for Referral Outpatient (Routine) - Authorized Specialty Diagnoses / Procedures Referred By Contact Refer red To Contact Diagnoses Follow Up Examination Status Post Surgery Peripheral Arterial Disease (HCC) Jayjay Pak P.A.-C. [facility] Procedures US Aorta Iliac Arteries Bilateral with Doppler [address] [place] [address] Referral ID Status Reason Start Date Expiration Date Visits V isits Requested Authorized [id number] Authorized 02/23/2022 02/23/2023 1 1 Outpatient (Routine) - Authorized Specialty Diagnoses / Procedures Referred By Contact Refer red To Contact Diagnoses Follow Up Examination Status Post Surgery Peripheral Arterial Disease (HCC) Jayjay Pak P.A.-C. [facility] Procedures US Lower Extremity Artery Graft Bilateral [address] [place] [address] Referral ID Status Reason Start Date Expiration Date Visits V isits Requested Authorized [id number] Authorized 02/23/2022 02/23/2023 1 1 Outpatient (Routine) - Authorized Specialty Diagnoses / Procedures Referred By Contact Refer red To Contact Vascular Medicine [place], Jayjay Jackson Escobar P.A.-C. [address] [place], [place] [address] Referral ID Status Reason Start Date Expiration Date Visits V isits Requested Authorized [id number] Authorized 02/23/2022 02/22/2025 1 1 Outpatient (Routine) - Authorized Specialty Diagnoses / Procedures Referred By Contact Refer red To Contact Diagnoses Follow Up Examination Status Post Surgery Peripheral Arterial Disease (HCC) Jayjay Pak P.A.-C. [facility] Procedures Lower Extremity Arterial (MIMI) - Exercise (Claudication) [address] [place], [place] [phone] Referral ID Status Reason Start Date Expiration Date Visits V isits Requested Authorized [id number] Authorized 02/23/2022 02/23/2023 1 1 Outpatient (Routine) - Authorized Specialty Diagnoses / Procedures Referred By Contact Refer red To Contact Diagnoses Follow Up Examination Status Post Surgery Peripheral Arterial Disease (HCC) Jayjay Pak P.A.-C. [facility] Procedures ECG 12 Lead [address] [place] [phone] Referral ID Status Reason Start Date Expiration Date Visits V isits Requested Authorized [id number] Authorized 02/23/2022 02/23/2023 1 1 Reason for Visit Outpatient (Routine) - Closed Specialty Diagnoses / Procedures Referred By Contact Refer red To Contact Vascular Medicine Jayjay Pak [place] [facility] P.A.-C. [address] [place], [place] [address] Referral ID Status Reason Start Date Expiration Date Visits Requ ested Visits Authorized [id number] Closed 10/23/2021 10/23/2022 1 1 Encounter Details Date Type Department Care Team Description 02/23/2022 Office Visit Department of Vascular Jayjay Pak low Up Examination Status Post Surgery (Primary Dx); Medicine in [place], A, PFeiA.-C . Peripheral Arterial Disease (HCC) [place] [address] [facility] [address] [place] [phone] Social History Tobacco Use Types Packs/Day Years [...] How often do you attend anglican or religion services? 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 Last Filed [...] (Approximate), outpatients) Peripheral Expires: Arterial Disease 02/24/2024 ([facility]) US Aorta Iliac Imaging RAD - Routine Follow Up Expected: Arteries (most inpatients Examination Status 02/23 Bilateral with and all Post Surgery (Approximate), Doppler outpatients) Peripheral Expires: Arterial Disease 02/24/2024 ([facility]) Scheduled Referrals Name Type Priority Associated Diagnoses Order S [facility] Vascular Medicine Outpatient Referral Routine Exp [...] documented as of this encounter Care Teams Loft Worker Head Relationship Specialty Start Date End Date Elsewhere, Pcp PCP - General Family Medicine 01/29/20 documented as of this encounter
--- OUTSIDE RECORDS SUMMARY | 2022-03-31 07:46 | XMS_ITS | Clinical Summary ---
:1950 Author Organization [facility] Address [address] [place] [address] Care Team Providers Name Role Phone Elsewhere, Pcp Primary Care Provider Unavailable Source Comments Patient records contain information from all sites at [facility]. For routine questions regarding patient records, call [phone] during business hours, M-F 8:00 AM - 5:00 PM Central Time. Record requests for emergency care only can be directed to [phone] at any time.[facility] Allergies Active Allergy Reactions Severity Noted Date Comments Gabapentin Other (see comments) Medium 08/04/2020 Dizzy, memory issue Morphine Itching, Rash Medium 02/14/2012 itchy Pregabalin Anaphylaxis High 02/16/2017 swell Jhslvxb-Czy-Ene Myalgia Low 02/13/2014 Reductase Inhibitors Medications Medication [...] 09/28/2021 doxepin (SINEquan) 10 TAKE ONE CAPSULE BY 90 capsule 3 022 Active mg capsule MOUTH EVERY DAY AT BEDTIME calcium citrate Take 4 tablets (800 300 tablet 3 06/16/2021 Active (CALCITRATE) 950 mg mg of calcium total) (200 mg calcium) tablet by mouth at bedtime. Increased to 4 pills at bedtime oxyCODONE (ROXICODONE) Take 5-10 mg by 0 08/14/2021 Active 5 mg immediate release mouth every 6 (six) tablet hours as needed. for pain blood sugar diagnostic TEST 6 TIMES DAILY 0 06/16/19 22 Active (Accu-Chek Guide test DIRECTED strips) strips furosemide (LASIX) 40 Take 1.5 tablets (60 135 tablet 3 202109/28/2022 Active mg tablet mg total) by mouth daily. 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 Spouse: Siria Children: Maria M Deluca Lisa, Bethany, 13 grand babies Work: no Problem Noted Date Hyperparathyroidism Secondary 05/27/2021 Diabetes Mellitus Type 2 With Diabetic Nephropathy 04/2022 Follow Up Examination Status Post Surgery 02/10/2021 Hyperkalemia 09/29/2020 Acidosis Metabolic Hyperchloremic 09/29/2020 Osteodystrophy Renal 06/16/2020 Anemia Of Chronic Renal Disease 06/16/2020 Acute Respiratory Failure With Hypoxia 05/08/2020 Pneumonia Community Acquired 05/08/2020 Neuropathy Peripheral 04/21/2018 Restless Leg Syndrome 01/12/2018 Atherosclerosis Of [place] Arteries Of Extremities With Intermittent 08/08/2017 Claudication Right Leg Hyperlipidemia 07/22/2017 Ulcer Leg Left 04/19/2017 Ulcer Toe Left 04/19/2017 Atherosclerosis Of [place] Arteries Of Left Leg With Ul ceration Of 04/19/2017 Unspecified Site Peripheral Arterial Disease 02/16/2017 Hypertension NOS 02/16/2017 Hypertensive Chronic Kidney Disease (CKD) Stage 3b [place] merular Filtration 09/23/2016 Rate (GFR) 30 To 44 Overview: Hypertension (HTN) And CKD Stage 1-4 [facility] Use Of Insulin Active 09/23/2016 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 Last Filed Vital Signs Vital Sign Reading Time Taken Comments Blood Pressure 198/73 02/23/2022 3:01 PM CDT Pulse 80 02/23/2022 3:01 PM CDT Temperature 36.7 ??C (98.1 ??F) 05/10/2020 12:30 PM ACCESS CONTROL OFFICER Respiratory Rate 31 05/10/2020 1:45 PM ACCESS CONTROL OFFICER Oxygen Saturation 96% 05/10/2020 12:30 PM ACCESS CONTROL OFFICER Inhaled Oxygen Concentration - - Weight 84.8 [...] Diabetic Office Visit with Foot 07/22/2018 07/22/2017, 0211/2016 Exam Diabetes Education 05/01/2019 05/01/2018, 09/23/2016 Tobacco Cessation counseling 09/24/2020 09/25/2019 Lung Cancer Screening 05/07/2021 05/07/2020 Fall Risk Screen (Annual) 05/16/2021 Hemoglobin A1C 08/10/2021 02/10/2021, 04/21/2018, 12/06/2017, Additional history exists COVID-19 Vaccine (5 - Booster for 12/22/2021 10/27/2021, , Pfizer series) 08/09/2020, Additional history exists Office Visit for Blood [...] Completed 04/24/2018, , 02/14/2012, Additional history exists Influenza Vaccine Completed 03/17/2022, 03/24/2021, 02/20/2020, Additional history exists Medical Devices Implanted Type Area Block Mason Device Shelf Model / Identifier Expiration Serial / Date Lot Patch Vasc Bovine.08cm X 8cm - Flores [id number] Mesh or Other/Legacy - S ynovis Implanted: Qty: 1 on 04/04/2017 Patch See Implant Description Description: Device Block Mason - Synov is. Body Location - Other. Vascular. Device Status Text - [id number]. Ocular Lens-10/29/2007 Ocular Lens Bilateral: Eye Implanted: 10/29/2007 by Nato Dougherty, JULIÁN, C.N.P. (Quantity not on file) Description: Cataract extraction and ins ertion of intraocular lens 06/22/2016 09:27 - NATO DOUGHERTY APRN ELECTRIC LOCOMOTIVE CRANE OPERATOR bilateral Conversions - Default Historical Implant Device Ocular Lens Right: Eye Implanted: 03/04/2017 (Quantity not on file) Description: Body Location - Eye R. Eye L. Eye R. Device Status Text - OculrLens. Conversions - Default Historical Implant Device Ocular Lens Left: Eye Implanted: 05/27/2017 (Quantity not on file) Description: Body Location - Eye L. Mary ce Status Text - OculrLens. Stent Vbx [id number] - Flores [id number] Vascular Graft Other/Legacy - See Implant [place] Implanted: Qty: 1 on 03/04/2017 Description Description: Device Block Mason - W AFFi[employer]iS [employer] Body Location - Other. n/a. Device Status Text - [id number]. Stent Zilver Ptx 6mm X 60mm - [id number] Vascular Stent Other /Legacy - See [employer] Implanted: Qty: 1 on 04/04/2017 Implant Description Description: Device Block Mason - Infor Medical. Body Location - Other. Left. Device Status Text - [id number]. Stent Zilver Ptx 6mm X 80mm - [id number] Vascular Stent Right : Other/Legacy - [employer] / Implanted: Qty: 1 on 08/31/2017 See Implant Inc. [id number] / Description Description: Device Block Mason - Infor Medical. Body Location - Right. Device Status Text - [id number]. Stnt Innova Otw [id number] - [id number] Vascular [place] 05/23/2020 [id number] / Implanted: Qty: 1 on 04/18/2018 by Kemar Velásquez M.B.B.S. at [facility] Stent Scientific / [id number] Stnt Innova Otw [id number] - [id number] Vascular Left: [place] 09/05/2020 [id number] / Implanted: Qty: 1 on 05/11/2019 by Kemar Velásquez M.B.B.S. at [facility] Stent Leg Scientific / [id number] Procedures Procedure Name Priority Date/Time Associated Comments [...] which will be reported separately Procedure Note Gomez, Yon A, M.D. - 02/23/2022Format ting of this note [...] artery. Authorizing Provider Result Jimmy Pak P.A.-C. IMG US PROCEDURES Lower Extremity Arterial (MIMI) - [...] Signature Ventricular Rate 78 BPM MUSE ECG/Min [place] Interval 160 ms MUSE QRSD Interval 144 ms MUSE QT Interval 424 ms MUSE QTC Interval 483 ms MUSE P [place] 69 degrees MUSE R [place] -4 degrees MUSE T Wave [place] 20 degrees MUSE Specimen Anatomical Collection Method [...] e / Group Dates MEDICARE MEDICARE A [id number] 2019-Pres [address] [place] [address] BLUE CROSS BCBS [place] [id number] 2019-Pres [phone] PO OMAR X Cost Share BLUE SHIELD BLUE COST ent [phone] [place] [address] Advance Directives For more information, please contact: [phone] Latest Code Status on File Code Status [...] Answer Comments Full Code: Discussed Care Teams Shop Worker Relationship Specialty Start Date End Date Elsewhere, Pcp PCP - General Family Medicine 01/29/20
--- OUTSIDE RECORDS SUMMARY | 2022-03-31 07:46 | XMS_ITS | Encounter Summary ---
:1950 Author Organization [facility] Address [address] [place] [address] Care Team Providers Name Role Phone Elsewhere, Pcp Primary Care Provider Unavailable Reason for Referral Transplant (Routine) - Authorized Specialty Diagnoses / Procedures Referred By Contact Refer red To Contact Transplant Surgery / Diagnoses Chronic Kidney Disease Stage 4 Glomerular Filtration Rate 15-29 (HCC) [facility] Delmy Yan, Ph.D. [address] [place] [address] Referral ID Status Reason Start Date Expiration Date Visits V isits Requested Authorized [id number] Authorized 12/08/2021 12/08/2022 1 1 Reason for Visit Appointment Request (Routine) - Closed Specialty Diagnoses / Procedures Referred By Contact Refer red To Contact Nephrology and Hypertension Referral ID Status Reason Start Date Expiration Date Visits Requ ested Visits Authorized [id number] Closed 11/20/2021 11/20/2022 1 Encounter Details Date Type Department Care Team Description 12/08/2021 External Outreach Division of Rod Barnes Kidney Disease Stage 4 Glomerular Filtration Rate 15-29 (HCC) (Primary Dx); Nephrology and Delmy Yan, Hypertension Essential Primary; Hypertension in Ph.D. Hyperkalemia; [place], [place] [address] Acidosis Metabolic Hyperchloremic; [address] [place], [place] [address] [phone] Social History Tobacco Use Types Packs/Day Years [...] How often do you attend rastafari or scientologist services? 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 - 12/08/2021 10:00 AM CDT PROGRESS NOTE OUTREACH [place] SUBJECTIVE CHIEF COMPLAINT / REASON FOR VISIT [...] (Approxim ate), Filtration Rate 15-29 s: 03/10/2023 ([facility]LY [facility]) Cystatin C with Estimated Lab Routine Chronic Kidney Disease Expected: 03/16/2022 GFR, S Stage 4 Glomerular (Approxim ate), Filtration Rate 15-29 s: 03/10/2023 ([facility]) Urinalysis with Lab Routine Chronic Kidney Disease Ex pected: 03/16/2022 Microscopic: Urine, Stage 4 Glomerular (A pproximate), Midstream Filtration Rate 15-29 s: 03/10/2023 ([facility]) Protein/Creatinine Ratio, Lab Routine Chronic Kidney Disease Expected: 03/16/2022 Random, Urine Stage 4 Glomerular (Approxi mate), Filtration Rate 15-29 s: 03/10/2023 ([facility]) Albumin, Random, Urine Lab Routine Chronic Kidney Dis ease Expected: 03/16/2022 Stage 4 Glomerular (Approxim ate), Filtration Rate 15-29 s: 03/10/2023 ([facility]) Uric Acid Lab Routine Chronic Kidney Disease Expec jennifer: 03/16/2022 Stage 4 Glomerular (Approxim ate), Filtration Rate 15-29 s: 03/10/2023 ([facility]) Parathyroid Hormone (PTH) Lab Routine Chronic Kidney Disease Expected: 03/16/2022 Stage 4 Glomerular (Approxim ate), Filtration Rate 15-29 s: 03/10/2023 ([facility]) Iron and Total Lab Routine Chronic Kidney Disease Exp ected: 03/16/2022 Iron-Binding Capacity Stage 4 Glomerular (Approximate), Filtration Rate 15-29 s: 03/10/2023 ([facility]) Ferritin Lab Routine Chronic Kidney Disease Expec jennifer: 03/16/2022 Stage 4 Glomerular (Approxim ate), Filtration Rate 15-29 s: 03/10/2023 ([facility]) Scheduled Referrals Name Type Priority Associated Order Schedule Diagnoses Transplant - Kidney Outpatient Referral Routine Chronic Kidney Expected: and pancreas consult Disease Stage 4 11/14 (clinic) Glomerular (Approximate), Filtration Rate Expires: 15- ([facility]) 03/10/2023 documented as of this encounter Visit Diagnoses Diagnosis Chronic Kidney Disease Stage 4 Glomerula r Filtration Rate 15-29 (HCC) - Primary Hypertension Essential Primary Hyperkalemia Acidosis Metabolic Hyperchloremic Excess Fluid Volume documented in this encounter Additional Health Concerns Assessment Noted Time PHQ-9 Depression Total Score: 3 01/03/2018 10:38 AM CD T documented as of this encounter Care Teams Pickup Driver Relationship Specialty Start Date End Date Elsewhere, Pcp PCP - General Family Medicine 01/29/20 documented as of this encounter
--- OUTSIDE RECORDS SUMMARY | 2022-03-31 07:46 | XMS_ITS | Encounter Summary ---
:1950 Author Organization [facility] Address [address] [place] [address] Care Team Providers Name Role Phone Elsewhere, Pcp Primary Care Provider Unavailable Encounter Details Date Type Department Care Team Description 09/24/2021 Hospital Encounter Department of [employer], stickapps And Laboratory Medicine Hui Reddy APRN, Chroni c Kidney in Jacqueline, C.N.P., D.N.P. Disease Stag e 1 To [address] [place] [phone] Social History Tobacco Use Types Packs/Day Years [...] How often do you attend yazidism or oriental orthodox services? 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 eGFR Non-Black/ 19 (L) >=60 mL/min/BSA 09/24/2021 1:05 PM CDT OWAT [place]ian Comment: ----ADDITIONAL INFORMATION---- Estimated GFR calculated using [...] 22 Venous) CDT 10:33 AM CDT Narrative [facility] - 09/24/2021 4:22 PM CDT Specimen Information: Specimen ID: [id number] Specimen Type: Blood Specimen Collection Start Date: 09/25/19 ??8:59 AM Specimen Received Date: 09/24/2021 10:33 AM Specimen ID: [id number] Specimen Type: Blood Specimen Collection Start Date: 09/25/19 ??8:59 AM Specimen Received Date: 09/24/2021 ??3:3 1 PM Hui Delgado APRN, C.N.P., D.N.P. LAB BLOOD AD D-ON Performing Organization Address City/State/ZIP Code Phon e Number [facility] [address] [place], [place] [id number] [place] [address] [place] [address] System in [place] [address] [place] [facility] - [place], [place] [id number] [place] [address] documented in this encounter Visit Diagnoses Diagnosis Hypertension And Chronic Kidney Disease Stage 1 To 4 documented in this encounter Additional Health Concerns Assessment Noted Time PHQ-9 Depression Total Score: 3 01/03/2018 10:38 AM CD T documented as of this encounter Care Teams Telecommunications Network Planner Relationship Specialty Start Date End Date Elsewhere, Pcp PCP - General Family Medicine 01/29/20 documented as of this encounter
--- OUTSIDE RECORDS SUMMARY | 2022-03-31 07:46 | XMS_ITS | Encounter Summary ---
:1950 Author Organization [facility] Address [address] [place] [address] Care Team Providers Name Role Phone Elsewhere, Pcp Primary Care Provider Unavailable Reason for Visit Reason Comments Med Refill Encounter Details Date Type Department Care Team Description 09/15/2021 Refill Department of Family Medicine, Bambi Adler Med Refill [facility], in Renee Phillips M.D. [place] [address] [place] [address] [place] [address] [phone] Social History Tobacco Use Types Packs/Day Years [...] How often do you attend bahai or gnosticist services? 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
--- OUTSIDE RECORDS SUMMARY | 2022-03-31 07:46 | XMS_ITS | Encounter Summary ---
:1950 Author Organization [facility] Address [address] [place] [address] Care Team Providers Name Role Phone Elsewhere, Pcp Primary Care Provider Unavailable Encounter Details Date Type Department Care Team Description 10/21/2021 Hospital Encounter Department of Wellalfredoitter, Hyperte nsion And Chronic Kidney Disease Stage 1 To 4; Laboratory Medicine Hui Reddy APRN, Chroni c Kidney Disease Stage 4 Glomerular Filtration Rate 15-29 (HCC) in Jacqueline, C.N.P., D.N.P. [address] [place] [phone] Social History Tobacco Use Types Packs/Day Years [...] How often do you attend jain or synagogue services? 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 iron- 1 mg [...] eGFR-Black/Afri 20 (L) >=60 10/21/2021 OWAT can [place] Islander mL/min/BSA 2:21 PM CDT Comment: ----ADDITIONAL INFORMATION---- Estimated GFR calculated using the 2009 CKD_EPI creatinine equation. eGFR Non-Black/ 17 (L) >=60 mL/min/BSA 10/21/2021 2:21 PM CDT OWAT [place] Comment: ----ADDITIONAL INFORMATION---- Estimated GFR calculated using the 2009 CKD_EPI creatinine equation. Specimen Anatomical Collection Method Collection Time Receive d Time (Source) Location / / Volume Laterality Blood (Blood, 10/21/2021 12:02 10/21/2021 1:05 Venous) PM CDT PM CDT Hui Delgado APRN, C.N.P., D.N.P. LAB BLOOD AD D-ON Performing Organization Address City/State/ZIP Code Phon e Number [facility] [address] [place] [address] [facility] [place] [address] System in [place] [address] Potassium (10/21/2021 12:02 [...] Organization Address City/State/ZIP Code Phon e Number [facility]- [address] [place] [address] [place] [address] System in [place] [address] documented in this encounter Visit Diagnoses Diagnosis Hypertension And Chronic Kidney Disease Stage 1 To 4 Chronic Kidney Disease Stage 4 Glomerula r Filtration Rate 15-29 (HCC) documented in this encounter Additional Health Concerns Assessment Noted Time PHQ-9 Depression Total Score: 3 01/03/2018 10:38 AM CD T documented as of this encounter Care Teams Crematory Attendant Relationship Specialty Start Date End Date Elsewhere, Pcp PCP - General Family Medicine 01/29/20 documented as of this encounter
--- OUTSIDE RECORDS SUMMARY | 2022-03-31 07:46 | XMS_ITS | Encounter Summary ---
:1950 Author Organization [facility] Address [address] [place] [address] Care Team Providers Name Role Phone Elsewhere, Pcp Primary Care Provider Unavailable Reason for Referral Outpatient (Routine) - Closed Specialty Diagnoses / Procedures Referred By Contact Refer red To Contact Diagnoses Follow Up Examination Status Post Surgery Jayjay Pak P.A.-C. [facility] Procedures US Aorta Iliac Arteries Bilateral with Doppler [address] [place] [phone] Referral ID Status Reason Start Date Expiration Date Visits Requ ested Visits Authorized [id number] Closed 10/23/2021 10/23/2022 1 1 Reason for Visit Outpatient (Routine) - Closed Specialty Diagnoses / Procedures Referred By Contact Refer red To Contact Diagnoses Follow Up Examination Status Post Surgery Jayjay Pak P.A.-C. [facility] Procedures US Aorta Iliac Arteries Bilateral with Doppler [address] [place] [phone] Referral ID Status Reason Start Date Expiration Date Visits Requ ested Visits Authorized [id number] Closed 10/23/2021 10/23/2022 1 1 Encounter Details Date Type Department Care Team Description 02/23/2022 Hospital Encounter Department of Jayjay Pak Follow Up Examination Radiology, Santiago Escobar P.A.-C. Status Post Surgery [facility], in [address] [place], [place] [address] [place] [address] [place], [place] [phone] (Work) [phone] Social History Tobacco Use Types Packs/Day Years [...] often do you attend oriental orthodox or scientologist services? 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
--- OUTSIDE RECORDS SUMMARY | 2022-03-31 07:46 | XMS_ITS | Encounter Summary ---
:1950 Author Organization [facility] Address [address] [place] [address] Care Team Providers Name Role Phone Elsewhere, Pcp Primary Care Provider Unavailable Encounter Details Date Type Department Care Team Description 11/04/2021 Hospital Department of Well[place]rit[place], Hypertension And Chronic Kidney Disease Stage 1 To 4; Encounter Laboratory Hui E, Chronic Kidney Disease Stage 4 Glomerular Filtration Rate 15-29 (HCC); Medicine in DAIRY FEED SALES CONSULTANT, C.N.P., Hyperparathyro idism Secondary (HCC); Kylah Phillips.N.P. Anemia Of Chron ic Renal Disease [address] [place] [address] Social History Tobacco [...] How often do you attend restorationism or roman catholic services? 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 iron- 1 mg [...] City/State/ZIP Code Phon e Number [facility]- [address] [place] [address] [place] [facility] [place] [address] [facility] [address] (ABNORMAL) [...] City/State/ZIP Code Phon e Number [facility] - [address] [place], [place] [address] [facility] [place] [address] [facility] [address] [facility] (ABNORMAL) Parathyroid Hormone (PTH) (11/04/2021 [...] City/State/ZIP Code Phon e Number [facility]- [address] [place] [address] [facility] [place] [address] [facility] [address] (ABNORMAL) [...] eGFR-Black/Afri 20 (L) >=60 11/04/2021 OWAT can Georgian mL/min/BSA 11:43 AM CDT Comment: ----ADDITIONAL INFORMATION---- Estimated GFR calculated using the 2009 CKD_EPI creatinine equation. eGFR Non-Black/ 17 (L) >=60 mL/min/BSA 11/04/2021 11:43 AM CDT OWAT [place] Comment: ----ADDITIONAL INFORMATION---- Estimated GFR calculated using [...] 11/05/19 4:39 Venous) CDT PM CDT Narrative [facility] - 11/04/2021 5:09 PM CDT Specimen Information: Specimen ID: [id number] Specimen Type: Blood Specimen Collection Start Date: 11/05/19 ??9:07 AM Specimen Received Date: 11/04/2021 ??4:3 9 PM Specimen ID: [id number] Specimen Type: Blood Specimen Collection Start Date: 11/05/19 ??9:07 AM Specimen Received Date: 11/04/2021 11:03 AM Hui Delgado APRN, C.N.P., D.N.P. LAB BLOOD AD D-ON Performing Organization Address City/State/ZIP Code Phon e Number [facility]- [address] [place] [address] [place] [address] System in [place] [address] [place] [facility] [place], [place] [phone] [place] [address] (ABNORMAL) CBC without Differential (11/04/2021 9:07 AM CDT) [facility] gist Method Time Signature Hemoglobin 11.5 (L) [...] Organization Address City/State/ZIP Code Phon e Number [place] [address] [place], [place] [phone] [place] [address] LAB [address] [place] [address] System [address] documented in this encounter Visit [...] documented as of this encounter Care Teams Lead Burner Supervisor Relationship Specialty Start Date End Date Elsewhere, Pcp PCP - General Family Medicine 01/29/20 documented as of this encounter
--- OUTSIDE RECORDS SUMMARY | 2022-03-31 07:47 | XMS_ITS | Encounter Summary ---
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 documented as of this encounter Medications [...] Albumin, Random, Urine (08/24/2021 8:46 AM CDT) [facility] gist Method Time Signature Microalbumin 1117.0 mg/L [...] [facility]- [address] [place] [address] [place] [address] System in [place] [address] (ABNORMAL) Urinalysis with Microscopic: [...] 8.0 08/24/2021 9:06 AM CDT FB60 Specific [place] 1.020 1.001 - 1.035 08/24/2021 9:06 AM [...] Organization Address City/State/ZIP Code Phon e Number [place] [address] [place], [place] [phone] [place] [address] LAB [address] [place] [address] System in [address] documented in this encounter Visit [...]
--- OUTSIDE RECORDS SUMMARY | 2022-03-31 07:47 | XMS_ITS | Encounter Summary ---
:1950 Author Organization [facility] Address [address] [place] [address] Care Team Providers Name Role Phone Elsewhere, Pcp Primary Care Provider Unavailable Reason for Visit Reason Comments Med Refill Encounter Details Date Type Department Care Team Description 05/28/2021 Refill Department of Sleep Medicine in Yessy Cohen M.D., Med Refill [place], [place] [facility] [address] [place] [address] [place] [phone] (Wo rk) Social History Tobacco Use Types [...] How often do you attend hoahaoism or anabaptism services? 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
--- OUTSIDE RECORDS SUMMARY | 2022-03-31 07:47 | XMS_ITS | Encounter Summary ---
:1950 Author Organization [facility] Address [address] [place] [address] Care Team Providers Name Role Phone Elsewhere, Pcp Primary Care Provider Unavailable Encounter Details Date Type Department Care Team Description 09/08/2021 Hospital Encounter Department of [facility], Chronic Kidney Laboratory Medicine Hui Reddy APRN, Diseas e Stage 4 in Jacqueline, C.N.P., D.N.P. Glomerular [place] Filtration Rate [address] 15-29 (HCC) [facility] [place] [phone] Social History Tobacco Use Types Packs/Day Years [...] How often do you attend scientologist or confucianist services? 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 documented as of this encounter Medications at [...] LAB BLOOD AD D-ON Performing Organization Address City/State/[facility] Phon e Number [facility]- [address] [place] [address] [place] [address] System in [place] [address] (ABNORMAL) Creatinine with [...] Organization Address City/State/ZIP Code Phon e Number [facility]- [address] [place] [address] [place] [address] System in [place] [address] documented in this encounter Visit Diagnoses Diagnosis Chronic Kidney Disease Stage 4 Glomerula r Filtration Rate 15-29 (HCC) documented in this encounter Additional Health Concerns Assessment Noted Time PHQ-9 Depression Total Score: 3 01/03/2018 10:38 AM CD T documented as of this encounter Care Teams Lockstitch Waistline Joiner Relationship Specialty Start Date End Date Elsewhere, Pcp PCP - General Family Medicine 01/29/20 documented as of this encounter
--- OUTSIDE RECORDS SUMMARY | 2022-03-31 07:47 | XMS_ITS | Encounter Summary ---
:1950 Author Organization [facility] Address [address] [place] [address] Care Team Providers Name Role Phone Elsewhere, Pcp Primary Care Provider Unavailable Reason for Visit Reason Comments Labs Only Encounter Details Date Type Department Care Team Description 06/16/2021 Clinical Communication Division of Nephrology Edie Aguilar, Labs Only and Hypertension in [place] [address] [facility] [address] [place] [address] [phone] Social History Tobacco Use Types Packs/Day Years [...] this encounter Miscellaneous Notes Telephone Encounter - Eide Aguilar R.N. - 06/16/2021 1:24 PM CST [...] calcium. Disposition/Recommendation: I will review with the TUBE BALANCER team when he should repeat labs next. I asked him to contact us if he does develop symptoms of a low calcium. Information/Education: patient/caller able to teach back Caller agreeable to plan of care: yes Addendum: patient informed to continue 4 tabs of calcium citrate and repeat labs with his next CKD follow up with Hui Delgado CNP. NICAL PUBLICATIONS MANAGER Telephone Encounter - Edie Aguilar R.N. - 06/16/2021 1:17 PM CST ----- Message from Susana Saucedo APRN, C.N.P., M.S. sent at 06/15/2021 4:46 PM TECHNICAL PUBLICATIONS MANAGER ----- Please call patient to confirm that he is indeed taking calcium citrate 2 tablets every night at bedtime (on empty stomach). If he is taking the calcium without fail, okay to increase to 4 tablets at HS, otherwise okay to continue 2 tablets and recheck with follow up. Please review s/s of hypocalcemia and ask him to let us know if s/s. NICAL PUBLICATIONS MANAGER documented in this encounter Plan of Treatment Not on filedocumented as of this encounter Visit Diagnoses Not on filedocumented in this encounter Additional Health Concerns Assessment Noted Time PHQ-9 Depression Total Score: 3 01/03/2018 10:38 AM CD T documented as of this encounter Care Teams Retail Warehouse Associate Relationship Specialty Start Date End Date Elsewhere, Pcp PCP - General Family Medicine 01/29/20 documented as of this encounter
--- OUTSIDE RECORDS SUMMARY | 2022-03-31 07:47 | XMS_ITS | Encounter Summary ---
:1950 Author Organization [facility] Address [address] [place] [address] Care Team Providers Name Role Phone Elsewhere, Pcp Primary Care Provider Unavailable Encounter Details Date Type Department Care Team Description 05/22/2021 Hospital Encounter Department of Louise Hussein Kidney Laboratory Medicine JULIÁN Narayanan C.N.PFei, Dise ase Stage 4 in Marni Phillips Glomerular [place] [address] [facility] Filtration Rate [address] [place], [place] 15-29 ([facility]) [place] [phone] Social History Tobacco Use Types Packs/Day Years [...] How often do you attend taoism or lutheran services? 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 Male 03/24/2021 8:13 PM REHABILITATION AIDE documented as of this encounter Medications at [...] Chronic Kidney Res ults for this AM REHABILITATION AIDE Disease Stage 4 procedure ar e in Glomerular the results Filtration Rate section. (HCC) URINALYSIS WITH Routine 05/22/2021 10:05 Chronic Kidney Result s for this MICROSCOPIC AM REHABILITATION AIDE Disease Stage 4 procedure ar e in Glomerular the results Filtration Rate section. (HCC) documented in this encounter Results (ABNORMAL) Albumin, Random, Urine (05/22/2021 10:05 AM REHABILITATION AIDE) [facility] Method Time Signature Microalbumin 594.0 mg/L 05/22/2021 [place] 2:04 PM REHABILITATION AIDE Creatinine 39 mg/dL 05/22/2021 [place] 1:44 PM REHABILITATION AIDE Albumin/Creatinin 1523 (H) <17 mg/g 05/22/2021 [place] e Ratio 2:04 PM REHABILITATION AIDE Specimen Anatomical Collection Method Collection Time Receive d Time (Source) Location / / Volume Laterality Urine (Urine, 05/22/2021 10:05 05/22/2021 1:04 Clean Catch) AM REHABILITATION AIDE PM REHABILITATION AIDE Louise Hussein APRN, C.N.P., D.N.P. LAB URINE NATALYE XAVIER Performing Organization Address City/State/ZIP Code Phon e Number [facility]- [address] [place] [address] [place] [address] System in [place] [address] (ABNORMAL) Urinalysis with Microscopic: Urine, Midstream (05/22/2021 10:05 AM REHABILITATION AIDE) Analysis Performed At Patho logist Time Signature Source Urine, Urine, 05/22/2021 FB60 Midstream 10:06 AM REHABILITATION AIDE Clarity Clear Clear 05/22/2021 FB60 10:10 AM REHABILITATION AIDE Color Yellow 05/22/2021 FB60 10:10 AM REHABILITATION AIDE Comment: ----REFERENCE VALUE---- Colorless Yellow Cha Blood Trace (A) Negative 05/22/2021 10:10 AM REHABILITATION AIDE FB60 Nitrite Negative Negative 05/22/2021 10:10 AM REHABILITATION AIDE FB60 Leukocyte Esterase Negative Negative 05/22/2021 10:[address] FB60 Protein 100 (A) mg/dL 05/22/2021 10:10 AM REHABILITATION AIDE FB60 Comment: ----REFERENCE VALUE---- Negative Trace Glucose Negative Negative mg/dL 05/22/2021 10:10 AM REHABILITATION AIDE F B60 Ketones, QI(U) Negative Negative mg/dL 05/22/2021 10:10 AM REHABILITATION AIDE FB60 Bilirubin Negative Negative 05/22/2021 10:10 AM REHABILITATION AIDE FB60 pH 5.5 5.0 - 8.0 05/22/2021 10:10 AM REHABILITATION AIDE FB60 Specific [place] 1.015 1.001 - 1.035 05/22/2021 10:10 AM REHABILITATION AIDE FB60 Urobilinogen 0.2 0.2 - 1.0 mg/dL 05/22/2021 10:[address] FB60 White Blood Cells None Seen /hpf 05/22/2021 10:50 AM CS T FB60 Comment: ----REFERENCE VALUE---- Males: 0-3 Females: 0-10 Unknown: 0-10 Red Blood Cells None Seen 0 - 2 /hpf 05/22/2021 10:50 AM REHABILITATION AIDE FB60 Squamous Cells 4-10 /hpf 05/22/2021 10:50 AM REHABILITATION AIDE F B60 Specimen Anatomical Collection Method Collection Time Receive d Time (Source) Location / / Volume Laterality Urine (Urine, 05/22/2021 10:05 05/22/2021 Midstream) AM REHABILITATION AIDE 10:05 AM REHABILITATION AIDE Louise Hussein APRN, C.N.P., D.N.P. LAB URINE [place] Performing Organization Address City/State/ZIP Code Phon e Number [address] [place] [address] [facility] [address] [place] [address] System in [address] documented in this encounter Visit Diagnoses Diagnosis Chronic Kidney Disease Stage 4 Glomerula r Filtration Rate 15-29 (HCC) documented in this encounter Additional Health Concerns Assessment Noted Time PHQ-9 Depression Total Score: 3 01/03/2018 10:38 AM CD T documented as of this encounter Care Teams Spring Forger Relationship Specialty Start Date End Date Elsewhere, Pcp PCP - General Family Medicine 01/29/20 documented as of this encounter
--- OUTSIDE RECORDS SUMMARY | 2022-03-31 07:47 | XMS_ITS | Encounter Summary ---
:1950 Author Organization [facility] Address [address] [place] [address] Care Team Providers Name Role Phone Elsewhere, Pcp Primary Care Provider Unavailable Encounter Details Date Type Department Care Team Description 06/01/2021 Orders Only Division of Nephrology and [place], Hui Reddy, Hypertension, Restoration JULIÁN, C.N.P., D.N .P. [place], in [place], [place] [address] [place] [address] Social History Tobacco Use Types Packs/Day [...] How often do you attend uatsdin or restorationism services? 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 Male 03/24/2021 8:13 PM HARNESS BRUSHER documented as of this encounter Plan of Treatment Not on filedocumented as of this encounter Visit Diagnoses Not on filedocumented in this encounter Additional Health Concerns Assessment Noted Time PHQ-9 Depression Total Score: 3 01/03/2018 10:38 AM CD T documented as of this encounter Care Teams Architecture Analyst Relationship Specialty Start Date End Date Elsewhere, Pcp PCP - General Family Medicine 01/29/20 documented as of this encounter
--- OUTSIDE RECORDS SUMMARY | 2022-03-31 07:47 | XMS_ITS | Encounter Summary ---
:[address] 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 documented as of this encounter Medications at [...] EGFR Routine 08/24/2021 8:50 AM Anemia Of Cutter First shubham Results for this CDT Renal Disease [...] LAB BLOOD AD D-ON Performing Organization Address City/[facility]/ZIP Code Phon e Number [facility]- [address] [place] [address] [place] [facility] [place] [address] [facility] [address] (ABNORMAL) Cystatin [...] LAB BLOOD AD D-ON Performing Organization Address City/[facility]/ZIP Code Phon e Number [facility] - [address] [place], [place] [address] [facility] [place] [address] Laboratories-[facility] [address] (ABNORMAL) [...] Organization Address City/State/ZIP Code Phon e Number [facility]- [address] [place] [address] [place] [facility] [place] [address] [facility] [address] (ABNORMAL) Renal [...] eGFR-Black/Afri 24 (L) >=60 08/24/2021 [place] can [place] mL/min/BSA 11:43 AM CDT Comment: ----ADDITIONAL INFORMATION---- Estimated GFR calculated using the 2009 CKD_EPI creatinine equation. eGFR Non-Black/ 20 (L) >=60 mL/min/BSA 08/24/2021 11:43 AM CDT OW[place] Comment: ----ADDITIONAL INFORMATION---- Estimated [...] 08/25/19 3:55 Venous) CDT PM CDT Narrative [facility] [place] [facility] - 08/24/2021 4:40 PM CDT Specimen Information: Specimen ID: [id number] Specimen Type: Blood Specimen Collection Start Date: 08/25/19 ??8:50 AM Specimen Received Date: 08/24/2021 ??3:5 5 PM Specimen ID: [id number] Specimen Type: Blood Specimen Collection Start Date: 08/25/19 ??8:50 AM Specimen Received Date: 08/24/2021 10:51 AM Hui Delgado APRN, C.N.P., D.N.P. LAB BLOOD AD D-ON Performing Organization Address City/State/ZIP Code Phon e Number [facility]- [address] [place] [address] [place] [address] System in [place] [address] [place] [address] [facility] [address] (ABNORMAL) CBC without Differential (08/24/2021 8:50 AM CDT) [facility] Method Time Signature Hemoglobin 11.3 (L) 13.2 [...] Organization Address City/State/ZIP Code Phon e Number [address] [place], [place] [id number] [place] [address] LAB FB60 [place] [address] System in [address] documented in this encounter Visit [...] documented as of this encounter Care Teams Billing And Insurance Coordinator Relationship Specialty Start Date End Date Elsewhere, Pcp PCP - General Family Medicine 01/29/20 documented as of this encounter
--- OUTSIDE RECORDS SUMMARY | 2022-03-31 07:47 | XMS_ITS | Encounter Summary ---
:1950 Author Organization [facility] Address [address] [place] [address] Care Team Providers Name Role Phone Elsewhere, Pcp Primary Care Provider Unavailable Encounter Details Date Type Department Care Team Description 05/22/2021 Hospital Encounter Department of Louise Hussein Kidney Laboratory Medicine JULIÁN Narayanan C.N.PFei, Dise ase Stage 4 in Marni Phillips Glomerular [place] [address] [facility] Filtration Rate [address] [place], [place] 15[address]29 ([facility]) [place] [phone] Social History Tobacco Use Types Packs/Day Years [...] How often do you attend episcopal or hinduism services? 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 ([facility]) CYSTATIN C WITH EGFR Routine 05/22/2021 10:00 Chronic Kidney R esults for this AM BINGO CLERK Disease Stage 4 procedure ar e in Glomerular the results Filtration Rate section. ([facility]) IRON AND TOT Routine 05/22/2021 10:00 Chronic Kidney Results f or this IRON-BINDING AM BINGO CLERK Disease Stage 4 procedure ar e in CAPACITY, S/P Glomerular the results Filtration Rate section. (HCC) HBC TOTAL AB, SERUM Routine 05/22/2021 10:00 Chronic Kidney Re sults for this AM BINGO CLERK Disease Stage 4 procedure ar e in Glomerular the results Filtration Rate section. 15-29 (HCC) HBS ANTIBODY, SERUM Routine 05/22/2021 10:00 Chronic Kidney Re sults for this AM BINGO CLERK Disease Stage 4 procedure ar e in Glomerular the results Filtration Rate section. 15- (HCC) HEPATITIS B SURFACE Routine 05/22/2021 10:00 Chronic Kidney Re sults for this ANTIGEN AM BINGO CLERK Disease Stage 4 procedure ar e in Glomerular the results Filtration Rate section. (HCC) CBC WITHOUT Routine 05/22/2021 10:00 Chronic Kidney Results f or this DIFFERENTIAL, B AM BINGO CLERK Disease Stage 4 procedure are in Glomerular the results Filtration Rate section. (HCC) PARATHYROID HORMONE Routine 05/22/2021 10:00 Chronic Kidney Re sults for this (PTH), S AM BINGO CLERK Disease Stage 4 procedure ar e in Glomerular the results Filtration Rate section. (HCC) FERRITIN, S Routine 05/22/2021 10:00 Chronic Kidney Results f or this AM BINGO CLERK Disease Stage 4 procedure ar e in Glomerular the results Filtration Rate section. (HCC) documented in this encounter Results (ABNORMAL) Iron and Total Iron-Binding Capacity (05/22/2021 10:00 AM BINGO CLERK) P athologist Signature Iron 58 50 - 150 05/22/2021 [place] mcg/dL 4:02 PM BINGO CLERK Total Iron 221 (L) 250 - 400 05/22/2021 [place] Binding mcg/dL 4:02 PM BINGO CLERK Capacity Percent 26 14 - 50 % 05/22/2021 [place] Saturation 4:02 PM BINGO CLERK Specimen Anatomical Collection Method Collection Time Receive d Time (Source) Location / / Volume Laterality Blood (Blood, 05/22/2021 10:00 05/22/2021 3:33 Venous) AM BINGO CLERK PM BINGO CLERK Louise Hussein APRN, C.N.P., D.N.P. LAB BLOOD ADD- ON Performing Organization Address City/State/ZIP Code Phon e Number [facility]- [address] [place] [address] [place] [facility] [place], [place] [address] [place] [address] Ferritin (05/22/2021 10:00 AM BINGO CLERK) athologist Signature Ferritin, S 120 31 - 409 05/22/2021 [facility] mcg/L 1:50 PM BINGO CLERK Comment: Biotin has been identified by the lauryn currie as a potential interfering substance. ??Higher concentr ations of biotin may be found in multivitamins, hair/nail supple ments, and workout supplements. ??If the result does not [facility] clinical observations, repeat testing after patient refrains fr om the use of supplements for at least 12 hours. Specimen Anatomical Collection Method Collection Time Receive d Time (Source) Location / / Volume Laterality Blood (Blood, 05/22/2021 10:00 05/22/2021 1:03 Venous) AM BINGO CLERK PM BINGO CLERK Louise Hussein APRN C.N.P., D.N.P. LAB BLOOD ADD- ON Performing Organization Address City/[facility] Code Phon e Number [facility]- [address] [place] [address] [place] [address] System in [place] [address] [facility] HBs Antibody, Serum (05/22/2021 10:00 AM BINGO CLERK) athologist Signature HBs Antibody, Negative 05/22/2021 [place] S 4:45 PM BINGO CLERK Comment: ----REFERENCE VALUE---- Unvaccinated: Negative Vaccinated: Positive HBs Antibody, Quantitative, S <3.5 mIU/mL 05/22/2021 4:45 PM BINGO CLERK [place] Comment: ----REFERENCE VALUE---- <8.50: Negative 8.50-11.49: Indeterminate >=11.50: Positive Specimen Anatomical Collection Method Collection Time Receive d Time (Source) Location / / Volume Laterality Blood (Blood, 05/22/2021 10:00 05/22/2021 3:33 Venous) AM BINGO CLERK PM BINGO CLERK Louise Hussein APRN, C.N.P., D.N.P. LAB MICROBIOLO GY - BLOOD ORDERABLES Performing Organization Address City/[facility]/ZIP Code Phon e Number [facility]- [address] [place] [address] [place] [facility] [place] [address] [facility] [address] HBc Total Ab, Serum (05/22/2021 10:00 AM BINGO CLERK) P athologist Signature HBc Total Ab, Negative Negative 05/23/2021 [facility] S 9:56 AM BINGO CLERK Specimen Anatomical Collection Method Collection Time Receive d Time (Source) Location / / Volume Laterality Blood (Blood, 05/22/2021 10:00 05/23/2021 8:42 Venous) AM BINGO CLERK AM BINGO CLERK William Lopez APRN.N.P., D.N.P. LAB MICROBIOLO GY - BLOOD ORDERABLES Performing Organization Address [facility] Code Phon e Number [facility] [address] [place], [place] [address] [facility] C[facility] [place] [address] Laboratory Medicine and Pathology [address] [place] [address] Dr. RAIN Hepatitis B Surface Antigen (05/22/2021 10:00 AM BINGO CLERK) [facility] Method Time Signature HBs Antigen, Nonreactive Nonreactive 05/22/2021 [place] S 4:45 PM BINGO CLERK Comment: Biotin has been identified by the lauryn currie as a potential interfering substance. ??Higher concentr ations of biotin may be found in multivitamins, hair/nail supple ments, and workout supplements. ??If the result does not [facility] clinical observations, repeat testing after patient refrains fr om the use of supplements for at least 12 hours. Specimen Anatomical Collection Method Collection Time Receive d Time (Source) Location / / Volume Laterality Blood (Blood, 05/22/2021 10:00 05/22/2021 3:33 Venous) AM BINGO CLERK PM BINGO CLERK Louise Hussein APRN, C.N.P., D.N.P. LAB MICROBIOLO GY - BLOOD ORDERABLES Performing Organization Address City/[facility] Code Phon e Number [facility]- [address] [place] [address] [place] [facility] [place] [address] [facility] [address] (ABNORMAL) Cystatin C with Estimated GFR, S (05/22/2021 10:00 AM BINGO CLERK) P athologist Signature eGFR by 19 (L) >60 05/23/2021 [place] Cystatin C mL/min/BSA 7:05 AM BINGO CLERK Comment: Estimated GFR calculated using the CKD-E [...] 0.67 - 1.21 mg/L 05/23/2021 7:05 AM BINGO CLERK DTL Specimen Anatomical Collection Method Collection Time Receive d Time (Source) Location / / Volume Laterality Blood (Blood, 05/22/2021 10:00 05/23/2021 6:48 Venous) AM BINGO CLERK AM BINGO CLERK Louise Hussein APRN, C.N.P., D.N.P. LAB BLOOD ADD- ON Performing Organization Address City/State/ZIP Code Phon e Number [facility] - [address] [place], [place] [address] [facility] [place] [address] Laboratories-[facility] [address] (ABNORMAL) Parathyroid Hormone (PTH) (05/22/2021 10:00 AM BINGO CLERK) Analysis Performed At Patho logist Time Signature Parathyroid 260 (H) 15 - 65 05/22/2021 [facility] Hormone (PTH), S pg/mL 4:17 PM BINGO CLERK Comment: Biotin has been identified by the lauryn cturer as a potential interfering substance. ??Higher concentr ations of biotin may be found in multivitamins, hair/nail supple ments, and workout supplements. ??If the result does not [facility] clinical observations, repeat testing after patient refrains fr om the use of supplements for at least 12 hours. Specimen Anatomical Collection Method Collection Time Receive d Time (Source) Location / / Volume Laterality Blood (Blood, 05/22/2021 10:00 05/22/2021 3:33 Venous) AM BINGO CLERK PM BINGO CLERK Jennifer Lopez APRNNChucho, D.N.PFei LAB BLOOD ADD- ON Performing Organization Address City/State/ZIP Code Phon e Number [facility]- [address] [place] [address] [place] [facility] [place] [address] [facility] [address] (ABNORMAL) Renal Function Panel (05/22/2021 10:00 AM BINGO CLERK) Analysis Performed At Patho logist Time Signature Potassium, P 4.7 3.6 - 5.2 05/22/2021 [place] mmol/L 1:39 PM BINGO CLERK Sodium, P 137 135 - 145 05/22/2021 [place] mmol/L 1:39 PM BINGO CLERK Chloride, P 104 98 - 107 05/22/2021 [place] mmol/L 1:39 PM BINGO CLERK Bicarbonate, P 23 22 - 29 05/22/2021 [place] mmol/L 1:39 PM BINGO CLERK Anion Gap, P 10 7 - 15 05/22/2021 [place] 1:39 PM BINGO CLERK BUN (Blood Urea 36 (H) 8 - 24 05/22/2021 [place] Nitrogen), P mg/dL 1:39 PM BINGO CLERK Creatinine 2.59 (H) 0.74 - 05/22/2021 [place] 1.35 mg/dL 1:39 PM BINGO CLERK eGFR-Black/Afri 28 (L) >=60 05/22/2021 [place] can [place] mL/min/BSA 1:39 PM BINGO CLERK Comment: ----ADDITIONAL INFORMATION---- Estimated GFR calculated using the 2009 CKD_EPI creatinine equation. eGFR Non-Black/ 24 (L) >=60 mL/min/BSA 05/22/2021 1:39 PM BINGO CLERK [place] Comment: ----ADDITIONAL INFORMATION---- Estimated GFR calculated using the 2009 CKD_EPI creatinine equation. Calcium, Total, P 7.8 (L) 8.8 - 10.2 mg/dL 05/22/2021 1:39 PM BINGO CLERK [place] Glucose, P 133 70 - 140 mg/dL 05/22/2021 1:39 PM BINGO CLERK O TERI Albumin, P 3.8 3.5 - 5.0 g/dL 05/22/2021 1:39 PM BINGO CLERK O TERI Phosphorus (Inorganic), P 4.3 2.5 - 4.5 mg/dL 05/22/19 4:11 PM BINGO CLERK [place]UST Specimen Anatomical Collection Method Collection Time Receive d Time (Source) Location / / Volume Laterality Blood (Blood, 05/22/2021 10:00 05/22/2021 1:04 Venous) AM BINGO CLERK PM BINGO CLERK Narrative [facility] [place] [facility] - 05/22/2021 4:11 PM BINGO CLERK Specimen Information: Specimen ID: [id number] Specimen Type: Blood Specimen Collection Start Date: 2 10:00 AM Specimen Received Date: 05/22/2021 ??1:04 PM Specimen ID: [id number] Specimen Type: Blood Specimen Collection Start Date: 2 10:00 AM Specimen Received Date: 05/22/2021 ??3:33 PM Louise Hussein APRN, C.N.P., D.N.P. LAB BLOOD ADD- ON Performing Organization Address City/State/ZIP Code Phon e Number [facility]- [address] [place] [address] [place] [address] System in [place] [address] [facility] [place] [address] [facility] [address] (ABNORMAL) CBC without Differential (05/22/2021 10:00 AM BINGO CLERK) [facility] Method Time Signature Hemoglobin 11.1 (L) 13.2 - 05/22/2021 FB60 16.6 g/dL 10:11 AM BINGO CLERK Hematocrit 33.9 (L) 38.3 - 05/22/2021 FB60 48.6 % 10:11 AM BINGO CLERK Erythrocytes 3.55 (L) 4.35 - 05/22/2021 FB60 5.65 10:11 AM BINGO CLERK x10(12)/L MCV 95.5 78.2 - 05/22/2021 FB60 97.9 fL 10:11 AM BINGO CLERK RBC Distrib Width 14.1 11.8 - 05/22/2021 FB60 14.5 % 10:11 AM BINGO CLERK Platelet Count 248 135 - 317 05/22/2021 FB60 x10(9)/L 10:11 AM BINGO CLERK Leukocytes 16.2 (H) 3.4 - 9.6 05/22/2021 FB60 x10(9)/L 10:11 AM BINGO CLERK Specimen Anatomical Collection Method Collection Time Receive d Time (Source) Location / / Volume Laterality Blood (Blood, 05/22/2021 10:00 05/22/2021 Venous) AM BINGO CLERK 10:01 AM BINGO CLERK Louise Hussein APRN, C.N.P., D.N.P. LAB BLOOD ADD- ON Performing Organization Address City/State/ZIP Code Phon e Number [place] [address] [place], [place] [id number] [place] [address] LAB [address]60 [place] [address] System in [address] documented in this encounter Visit Diagnoses Diagnosis Chronic Kidney Disease Stage 4 Glomerula r Filtration Rate 15-29 (HCC) documented in this encounter Additional Health Concerns Assessment Noted Time PHQ-9 Depression Total Score: 3 01/03/2018 10:38 AM CD T documented as of this encounter Care Teams Food Sampler Relationship Specialty Start Date End Date Elsewhere, Pcp PCP - General Family Medicine 01/29/20 documented as of this encounter
--- OUTSIDE RECORDS SUMMARY | 2022-03-31 07:47 | XMS_ITS | Encounter Summary ---
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 ) Chronic Kidney Disease Stage 4 Glomerular Filtration Rate 15-29 (HCC) 25-HYDROXYVITAMIN Routine 05/28/2021 2:27 PM Anemia Of Chronic Results for this D2 AND D3, S LEAD SALES CONSULTANT Renal Disease procedure are in Hypertension And the results Chronic Kidney section. 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 ) Chronic Kidney Disease Stage 4 Glomerular Filtration Rate 15- (HCC) CALCIUM, IONIZED, Routine 05/28/2021 2:27 PM Chronic Kidney Re sults for this S/B LEAD SALES CONSULTANT Disease Stage 4 procedure ar e in Glomerular the results Filtration Rate section. 15- (HCC) CALCIUM, TOT, S/P Routine 05/28/2021 2:27 PM Chronic Kidney Re sults for this LEAD SALES CONSULTANT Disease Stage 4 procedure ar e in Glomerular the results Filtration Rate section. (HCC) documented in this encounter Results (ABNORMAL) Calcium, Ionized (05/28/2021 2:27 PM LEAD SALES CONSULTANT) athologist Signature Calcium, 4.13 (L) 4.57 - 05/29/2021 DTL Ionized, S 5.43 mg/dL 7:46 AM LEAD SALES CONSULTANT Comment: ----ADDITIONAL INFORMATION---- This test has been modified from the man ufacturer's instructions. Its performance characteri stics were determined by [facility] in a manner co nsistent with CLIA requirements. This test has not bee n cleared or approved by the U.S. Food and Drug Admin istration. pH for Ionized Calcium 7.30 (L) 7.35 - 7.48 05/29/2021 7:46 AM LEAD SALES CONSULTANT DTL Specimen Anatomical Collection Method Collection Time Receive d Time (Source) Location / / Volume Laterality Blood (Blood, 05/28/2021 2:27 PM 05/29/19 7:24 Venous) LEAD SALES CONSULTANT AM LEAD SALES CONSULTANT Hui Delgado APRN, C.N.P., D.N.P. LAB BLOOD NO N ADD-ON Performing Organization Address City/State/ZIP Code Phon e Number [facility] - [address] [place], [place] [address] [facility] [place] [address] Laboratories-[facility] [address] (ABNORMAL) Calcium, Total (05/28/2021 2:27 PM LEAD SALES CONSULTANT) athologist Signature Calcium, 7.6 (L) 8.8 - 10.2 05/28/2021 OW[place] Total, P mg/dL 4:12 PM LEAD SALES CONSULTANT Specimen Anatomical Collection Method Collection Time Receive d Time (Source) Location / / Volume Laterality Blood (Blood, 05/28/2021 2:27 PM 05/28/19 22 3:44 Venous) LEAD SALES CONSULTANT PM LEAD SALES CONSULTANT Hui Delgado APRN, C.N.P., D.N.P. LAB BLOOD AD D-ON Performing Organization Address City/State/ZIP Code Phon e Number [facility]- [address] [place] [address] [place] [address] System in [place] [address] 1,25-Dihydroxyvitamin D (05/28/2021 2:27 PM LEAD SALES CONSULTANT) [facility] Method Time Signature 1, 25 18 - 64 06/02/2021 [facility] DIHYDROXYVITAMIN D, pg/mL 10:50 AM LEAD SALES CONSULTANT S Comment: ----ADDITIONAL INFORMATION---- This test was developed and its performa nce characteristics determined by [facility] in a manner consistent with CLIA requirements. This test has not been cleared or approved by the [place] and Drug Administration. Specimen Anatomical Collection Method Collection Time Receive d Time (Source) Location / / Volume Laterality Blood (Blood, 05/28/2021 2:27 PM 05/29/19 22 7:41 Venous) LEAD SALES CONSULTANT AM LEAD SALES CONSULTANT Hui Maureen Delgado APRN, C.N.P., D.N.P. LAB BLOOD AD D-ON Performing Organization Address City/State/ZIP Code Phon e Number [facility] [address] [place], [place] [address] SUPPORT CENTER [facility] [place] [address] Laboratory Medicine and Pathology [address] [place] 25-Hydroxyvitamin D2 and D3 (05/28/2021 2:27 PM LEAD SALES CONSULTANT) P athologist Signature 25-Hydroxy D2 28 ng/mL 05/30/2021 SDS 11:19 AM LEAD SALES CONSULTANT 25-Hydroxy D3 4.3 ng/mL 05/30/2021 SDSC 11:19 AM LEAD SALES CONSULTANT 25-Hydroxy D 32 ng/mL 05/30/2021 SDS Total 11:19 AM LEAD SALES CONSULTANT Comment: ----REFERENCE VALUE---- 25-HYDROXY D TOTAL (D2+D3) Optimum level s in the healthy population are 20-50, patients with bone disease may benefit from higher levels within this r vanesa. ----ADDITIONAL INFORMATION---- This test was developed and its performa nce characteristics determined by [facility] in a manner consistent with CLIA requirements. This test has not been cleared or approved by the [place] and Drug Administration. Specimen Anatomical Collection Method Collection Time Receive d Time (Source) Location / / Volume Laterality Blood (Blood, 05/28/2021 2:27 PM 05/29/19 7:17 Venous) LEAD SALES CONSULTANT AM LEAD SALES CONSULTANT Hui Delgado APRN C.N.P., D.N.P. LAB BLOOD AD D-ON Performing Organization Address City/State/ZIP Code Phon e Number [facility] [address] [place], [place] [address] SUPPORT [facility] [place] [address] Laboratory Medicine and Pathology [address] [...] as of this encounter Care Teams Customer Experience Manager Relationship Specialty Start Date End Date Elsewhere, Pcp PCP - General Family Medicine 01/29/20 documented as of this encounter
--- OUTSIDE RECORDS SUMMARY | 2022-03-31 07:47 | XMS_ITS | Encounter Summary ---
:1950 Author Organization [facility] Address [address] [place] [address] Care Team Providers Name Role Phone Elsewhere, Pcp Primary Care Provider Unavailable Reason for Visit Appointment Request (Routine) - Closed Specialty Diagnoses / Procedures Referred By Contact Refer red To Contact Nephrology and Hypertension Referral ID Status Reason Start Date Expiration Date Visits Requ ested Visits Authorized [id number] Closed 05/22/2021 05/22/2022 1 1 Encounter Details Date Type Department Care Team Description 05/27/2021 External Division of [place] Chronic Kidney Disease Stage 4 Glomerular Filtration Rate 15-29 (HCC) (Primary Dx); Outreach Nephrology and , Hui Reddy, Anemia Of Chr onic Renal Disease; Hypertension in COMPUTER ARCHITECT, 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 (HCC); [place], [place] C.N.P., Hyperparathyroidism Secondar y (HCC); [address] [facility] D.N.P. Diabetes Mellitus Type 2 Wit h Diabetic Nephropathy (H[place]) [place] [address] Social History Tobacco Use Types Packs/Day Years [...] How often do you attend jewish or sikhism services? 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 - 05/27/2021 10:00 AM CST Subjective: Patient is being seen in the CKD clinic out reach at [place]. History of Present Illness: Mr. Walton is [...] next week. He is currently taking ergocalciferol 91309 Units a week. #6 Metabolic acidosis screening Bicarbonate: at goal Bicarbonate Therapy: Not needed Follow-up: [facility], 3 months CLE WORKER documented in this encounter Plan of Treatment [...] Organization Address City/State/ZIP Code Phon e Number [facility]- [address] [place] [address] [facility] [place] [address] [facility] [address] (ABNORMAL) Cystatin C [...] Address City/State/ZIP Code Phon e Number [facility] - [address] [place], [place] [address] [facility] [place] [address] Laboratories-[facility] [address] (ABNORMAL) Parathyroid [...] supplements. ??If the result does not [facility] clinical observations, repeat testing after patient refrains fr om the use of supplements for at least 12 hours. Specimen Anatomical Collection Method Collection Time Receive d Time (Source) Location / / Volume Laterality Blood (Blood, 08/24/2021 8:50 AM 08/25/19 3:55 Venous) CDT PM CDT Hui Reddy Sandy GALLEGO C.N.P., Kylah.NFeiP. LAB BLOOD AD D-ON Performing Organization Address City/State/ZIP Code Phon e Number [facility]- [address] [place] [address] [facility] [place] [address] [facility] [address] (ABNORMAL) Renal Function [...] 08/25/19 3:55 Venous) CDT PM CDT Narrative [facility] - 08/24/2021 4:40 PM CDT Specimen Information: Specimen ID: [id number] Specimen Type: Blood Specimen Collection Start Date: 08/25/19 ??8:50 AM Specimen Received Date: 08/24/2021 ??3:5 5 PM Specimen ID: [id number] Specimen Type: Blood Specimen Collection Start Date: 08/25/19 ??8:50 AM Specimen Received Date: 08/24/2021 10:51 AM Hui Delgado APRN, C.N.P., D.N.P. LAB BLOOD AD D-ON Performing Organization Address City/State/ZIP Code Phon e Number [facility]- [address] [place] [address] [place] [address] System in [place] [address] [place] [address] [facility] [address] (ABNORMAL) CBC without Differential (08/24/2021 8:50 AM CDT) [facility] gist Method Time Signature Hemoglobin 11.3 [...] LAB BLOOD AD D-ON Performing Organization Address City/[facility] Phon e Number [address] [place] [address] [facility] [address] [place] [address] [address] (ABNORMAL) Albumin, Random, Urine (08/24/2021 8:46 AM CDT) [facility] gist Method Time Signature Microalbumin 1117.0 [...] LAB URINE OR DERABLES Performing Organization Address City/[facility] Code Phon e Number [facility]- [address] [place] [address] [facility] [place] [address] System in [place] [address] (ABNORMAL) Urinalysis with Microscopic: [...] 8.0 08/24/2021 9:06 AM CDT FB60 Specific Sulphur 1.020 1.001 - 1.035 08/24/2021 9:06 AM [...] LAB URINE OR DERABLES Performing Organization Address City/[facility]/ZIP Code Phon e Number [facility]- [address] [place] [address] [facility] [address] [place] [address] System in [place] [address] (ABNORMAL) Calcium, Ionized (05/28/2021 2:27 PM RECYCLE WORKER) athologist Signature Calcium, 4.13 (L) 4.57 - 05/29/2021 DTL Ionized, S 5.43 mg/dL 7:46 AM RECYCLE WORKER Comment: ----ADDITIONAL INFORMATION---- This test has been modified from the man ufacturer's instructions. Its performance characteri stics were determined by [facility] in a manner co nsistent with CLIA requirements. This test has not bee n cleared or approved by the U.S. Food and Drug Admin istration. pH for Ionized Calcium 7.30 (L) 7.35 - 7.48 05/29/2021 7:46 AM RECYCLE WORKER DTL Specimen Anatomical Collection Method Collection Time Receive d Time (Source) Location / / Volume Laterality Blood (Blood, 05/28/2021 2:27 PM 05/29/19 7:24 Venous) RECYCLE WORKER AM RECYCLE WORKER Hui Delgado APRN, C.N.P., D.N.P. LAB BLOOD NO N ADD-ON Performing Organization Address City/[facility] Code Phon e Number [facility] - [address] [place], [place] [address] [facility] [place] [place] [address] [facility] [address] [facility] (ABNORMAL) Calcium, Total (05/28/2021 2:27 PM RECYCLE WORKER) athologist Signature Calcium, 7.6 (L) 8.8 - 10.2 05/28/2021 [place] Total, P mg/dL 4:12 PM RECYCLE WORKER Specimen Anatomical Collection Method Collection Time Receive d Time (Source) Location / / Volume Laterality Blood (Blood, 05/28/2021 2:27 PM 05/28/19 3:44 Venous) RECYCLE WORKER PM RECYCLE WORKER Hui Delgado APRN, C.N.P., D.N.P. LAB BLOOD AD D-ON Performing Organization Address City/State/ZIP Code Phon e Number [facility]- [address] [place] [address] [place] [place] [address] System in [place] [address] 1,25-Dihydroxyvitamin D (05/28/2021 2:27 PM RECYCLE WORKER) Patholo gist Method Time Signature 1, 25 20 18 - 64 06/02/2021 [facility] DIHYDROXYVITAMIN D, pg/mL 10:50 AM RECYCLE WORKER S Comment: ----ADDITIONAL INFORMATION---- This test was developed and its performa nce characteristics determined by [facility] in a manner consistent with CLIA requirements. This test has not been cleared or approved by the [place] and Drug Administration. Specimen Anatomical Collection Method Collection Time Receive d Time (Source) Location / / Volume Laterality Blood (Blood, 05/28/2021 2:27 PM 05/29/19 7:41 Venous) RECYCLE WORKER AM RECYCLE WORKER Hui Delgado APRN, C.N.P., D.N.P. LAB BLOOD AD D-ON Performing Organization Address City/State/ZIP Code Phon e Number [facility] [address] [place], [place] [address] [place], [place] [address] [address] Laboratory Medicine and Pathology [address] [place] 25-Hydroxyvitamin D2 and D3 (05/28/2021 2:27 PM RECYCLE WORKER) P athologist Signature 25-Hydroxy D2 28 ng/mL 05/30/2021 SDSC 11:19 AM RECYCLE WORKER 25-Hydroxy D3 4.3 ng/mL 05/30/2021 SDSC 11:19 AM RECYCLE WORKER 25-Hydroxy D 32 ng/mL 05/30/2021 [facility] Total 11:19 AM RECYCLE WORKER Comment: ----REFERENCE VALUE---- 25-HYDROXY D TOTAL (D2+D3) Optimum level s in the healthy population are 20-50, patients with bone disease may benefit from higher levels within this r vanesa. ----ADDITIONAL INFORMATION---- This test was developed and its performa nce characteristics determined by [facility] in a manner consistent with CLIA requirements. This test has not been cleared or approved by the [place] and Drug Administration. Specimen Anatomical Collection Method Collection Time Receive d Time (Source) Location / / Volume Laterality Blood (Blood, 05/28/2021 2:27 PM 05/29/19 22 7:17 Venous) RECYCLE WORKER AM RECYCLE WORKER Hui Delgado Jennifer GALLEGONChucho, D.N.P. LAB BLOOD AD D-ON Performing Organization Address City/State/ZIP Code Phon e Number [facility] [address] [place], [place] [address] SUPPORT [facility] [place] [address] Laboratory Medicine and Pathology [address] [...] documented as of this encounter Care Teams Lining Finisher Relationship Specialty Start Date End Date Elsewhere, Pcp PCP - General Family Medicine 01/29/20 documented as of this encounter
--- OUTSIDE RECORDS SUMMARY | 2022-03-31 07:47 | XMS_ITS | Encounter Summary ---
:1950 Author Organization [facility] Address [address] [place] [address] Care Team Providers Name Role Phone Elsewhere, Pcp Primary Care Provider Unavailable Reason for Referral Outpatient (Routine) - Closed Specialty Diagnoses / Procedures Referred By Contact Refer red To Contact Nephrology and Diagnoses Hypertension And Chronic Kidney Disease Stage 1 To 4 Hui Delgado [facility] Hypertension Maureen, JULIÁN C.N.P., D.N.P. [address] [place] [address] Referral ID Status Reason Start Date Expiration Date Visits Requ ested Visits Authorized [id number] Closed 09/11/2021 09/11/2022 1 1 Scheduling Instructions Check weight, fluid status, bp and bp mo nitor check Encounter Details Date Type Department Care Team Description 09/11/2021 Orders Only Division of Nephrology Toya Wu ypertension And and Hypertension in I., R.N. Chronic Kidney Disease [place], [place] [address] [place] [address] Stage 1 To 4 (Primary [address] [place] [address] Dx) [place] [address] [phone] Social History Tobacco Use Types Packs/Day Years [...] How often do you attend confucianism or catholic services? 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 eGFR Non-Black/ 19 (L) >=60 mL/min/BSA 09/24/2021 1:05 PM CDT OW[place] Comment: ----ADDITIONAL INFORMATION---- Estimated GFR calculated using [...] 09/25/19 Venous) CDT 10:33 AM CDT Narrative [facility] - 09/24/2021 4:22 PM CDT Specimen Information: Specimen ID: [id number] Specimen Type: Blood Specimen Collection Start Date: 09/25/19 ??8:59 AM Specimen Received Date: 09/24/2021 10:33 AM Specimen ID: [id number] Specimen Type: Blood Specimen Collection Start Date: 09/25/19 ??8:59 AM Specimen Received Date: 09/24/2021 ??3:3 1 PM Hui Delgado APRN C.N.P., D.N.P. LAB BLOOD AD D-ON Performing Organization Address City/State/ZIP Code Phon e Number [facility]- [address] [place] [address] [place] [address] System in [place] [address] [facility] [place] [address] [facility] [address] documented in this encounter Visit Diagnoses Diagnosis Hypertension And Chronic Kidney Disease Stage 1 To 4 - Primary Hypertension And Chronic Kidney Disease Stage 1 To 4 documented in this encounter Additional Health Concerns Assessment Noted Time PHQ-9 Depression Total Score: 3 01/03/2018 10:38 AM CD T documented as of this encounter Care Teams Cancer Program Consultant Relationship Specialty Start Date End Date Elsewhere, Pcp PCP - General Family Medicine 01/29/20 documented as of this encounter
--- OUTSIDE RECORDS SUMMARY | 2022-03-31 07:47 | XMS_ITS | Encounter Summary ---
:1950 Author Organization [facility] Address [address] [place] [address] Care Team Providers Name Role Phone Elsewhere, Pcp Primary Care Provider Unavailable Reason for Visit Appointment Request (Routine) - Closed Specialty Diagnoses / Procedures Referred By Contact Refer red To Contact Nephrology and Hypertension Referral ID Status Reason Start Date Expiration Date Visits Requ ested Visits Authorized [id number] Closed 08/07/2021 08/07/2022 1 Encounter Details Date Type Department Care Team Description 08/26/2021 [facility] An d Chronic Kidney Disease Stage 1 To 4 (Primary Dx); Outreach Nephrology and Hui Chronic Kidne y Disease Stage 4 Glomerular Filtration Rate 15-29 (HCC); 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 [address] Social History Tobacco Use Types Packs/Day Years [...] How often do you attend restoration or anabaptist services? 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 History of Present Illness: Mr. [...] 4.6, CO2 26, Calcium 7.6 recheck at [facility] 8.1, Corrected calcium 8.4 See [facility] from 08/24/21 for the other results. [...] Therapy: Already on, no changes made Follow-up: [facility], 3 months documented in this [...] LAB BLOOD AD D-ON Performing Organization Address City/State/[facility] Code Phon e Number [facility]- [address] [place] [address] [facility] AUST [facility] - [place], [place] [id number] [place] [address] (ABNORMAL) Cystatin C [...] City/State/ZIP Code Phon e Number [facility] - [address] [place], [place] [address] [facility] [place] [address] Laboratories-[facility] [address] (ABNORMAL) Parathyroid Hormone (PTH) (11/04/2021 9:07 AM CDT) Analysis Performed At [facility] Time Signature Parathyroid 253 (H) 15 - [...] Phon e Number [facility]- [address] [place] [address] [facility] - [place], [place] [address] [place] [address] (ABNORMAL) Renal Function Panel (11/04/2021 9:07 AM CDT) Analysis Performed At [facility] Time Signature Potassium, P 4.8 3.6 - [...] eGFR-Black/Afri 20 (L) >=60 11/04/2021 OWAT can Mongolian mL/min/BSA 11:43 AM CDT Comment: ----ADDITIONAL INFORMATION---- Estimated GFR calculated using the 2009 CKD_EPI creatinine equation. eGFR Non-Black/ 17 (L) >=60 mL/min/BSA 11/04/2021 11:43 AM CDT OW[facility] Mongolian Comment: ----ADDITIONAL INFORMATION---- Estimated GFR calculated using [...] 11/05/19 4:39 Venous) CDT PM CDT Narrative [facility] - 11/04/2021 5:09 PM CDT Specimen Information: Specimen ID: [id number] Specimen Type: Blood Specimen Collection Start Date: 11/05/19 ??9:07 AM Specimen Received Date: 11/04/2021 ??4:3 9 PM Specimen ID: [id number] Specimen Type: Blood Specimen Collection Start Date: 11/05/19 ??9:07 AM Specimen Received Date: 11/04/2021 11:03 AM Hui Delgado APRN C.N.P., D.N.P. LAB BLOOD AD D-ON Performing Organization Address City/State/ZIP Code Phon e Number [facility]- [address] [place] [address] [place] [address] System in [place] [address] [place] [address] [facility] [address] (ABNORMAL) CBC without Differential (11/04/2021 9:07 AM CDT) [facility] Method Time Signature Hemoglobin 11.5 [...] e Number [facility]- [address] [place] [address] [facility] [address] [place] [address] System in [place] [address] (ABNORMAL) Albumin, Random, Urine (11/04/2021 8:58 AM CDT) [facility] Method Time Signature Microalbumin 395.0 [...] Organization Address City/State/ZIP Code Phon e Number [facility]- [address] [place] [address] [facility] [place] [address] System in [place] [address] (ABNORMAL) Urinalysis with Microscopic: Urine, [...] 8.0 11/04/2021 9:43 AM CDT FB60 Specific [place] 1.015 1.001 - 1.035 11/04/2021 9:43 AM [...] LAB URINE OR DERABLES Performing Organization Address City/[facility] Phon e Number [facility]- [address] [facility] [address] [facility] [address] [place] [address] System [address] Potassium (09/08/2021 11:33 AM CDT) P athologist Signature Potassium, P 4.6 3.6 - 5.2 09/08/2021 OW[place] mmol/L 1:44 PM CDT Specimen Anatomical Collection Method Collection Time Receive d Time (Source) Location / / Volume Laterality Blood (Blood, 09/08/2021 11:33 09/08/2021 1:15 Venous) AM CDT PM CDT Hui Delgado APRN, C.N.P., D.N.P. LAB BLOOD AD D-ON Performing Organization Address City/[facility] Phon e Number [facility]- [address] [place] [address] [place] [address] System in [place] [address] (ABNORMAL) Creatinine with Estimated GFR (09/08/2021 11:33 AM CDT) Analysis Performed At Patho logist Time Signature Creatinine 3.21 (H) 0.74 - 09/08/2021 OW[place] 1.35 mg/dL 1:44 PM CDT eGFR-Black/Afri 22 (L) >=60 09/08/2021 OW[facility] can Mongolian mL/min/BSA 1:44 PM CDT Comment: ----ADDITIONAL INFORMATION---- Estimated GFR calculated using the 2009 CKD_EPI creatinine equation. eGFR Non-Black/ 19 (L) >=60 mL/min/BSA 09/08/2021 1:44 PM CDT OW[place] Mong[place]ian Comment: ----ADDITIONAL INFORMATION---- Estimated GFR calculated using the 2009 CKD_EPI creatinine equation. Specimen Anatomical Collection Method Collection Time Receive d Time (Source) Location / / Volume Laterality Blood (Blood, 09/08/2021 11:33 09/08/2021 1:15 Venous) AM CDT PM CDT Hui Delgado APRN, C.N.P., D.N.P. LAB BLOOD AD D-ON Performing Organization Address City/State/ZIP Code Phon e Number [facility]- [address] [place] [address] [place] [address] System in [place] [address] documented in this encounter [...] documented as of this encounter Care Teams Masonry Teacher Relationship Specialty Start Date End Date Elsewhere, Pcp PCP - General Family Medicine 01/29/20 documented as of this encounter
--- OUTSIDE RECORDS SUMMARY | 2022-03-31 07:47 | XMS_ITS | Encounter Summary ---
:1950 Author Organization [facility] Address [address] [place] [address] Care Team Providers Name Role Phone Elsewhere, Pcp Primary Care Provider Unavailable Reason for Visit Reason Comments lab results and patient update Encounter Details Date Type Department Care Team Description 09/08/2021 Clinical Communication Division of sarah Arthur and Nephrology and Mallika Narayanan R.N. patient update Hypertension in [address] [place] [address] [address] [facility] [phone] Social History Tobacco Use Types Packs/Day Years [...] How often do you attend adventism or faith services? 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 documented in this encounter Plan of Treatment Not on filedocumented as of this encounter Visit Diagnoses Not on filedocumented in this encounter Additional Health Concerns Assessment Noted Time PHQ-9 Depression Total Score: 3 01/03/2018 10:38 AM CD T documented as of this encounter Care Teams Automatic Pilot Mechanic Relationship Specialty Start Date End Date Elsewhere, Pcp PCP - General Family Medicine 01/29/20 documented as of this encounter
--- OUTSIDE RECORDS SUMMARY | 2022-03-31 07:47 | XMS_ITS | Encounter Summary ---
:1950 Author Organization [facility] Address [address] [place] [address] Care Team Providers Name Role Phone Elsewhere, Pcp Primary Care Provider Unavailable Encounter Details Date Type Department Care Team Description 06/15/2021 Hospital Encounter Department of [employer], Youneeqe nsive Chronic Laboratory Medicine Hui Reddy APRN, Kidney Disease (CKD) in [place], JenniferNChucho, D.N.PFei Stage 3b Peace merular [place] Filtration Rate (GFR) [address] 30 To 44 (HCC) [place] [id number] Social History Tobacco Use Types Packs/Day Years [...] How often do you attend advent or mosque services? 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 NSED SALES ASSISTANT documented in this encounter Plan of Treatment Not on filedocumented as of this encounter Procedures Procedure Name Priority Date/Time Associated Diagnosis Comme nts CALCIUM, TOT, S/P Routine 06/15/2021 2:17 PM Hypertensive Tipple Boss shubham Results for this LICENSED SALES ASSISTANT Kidney Disease (CKD) procedu re are in Stage 3b Glomerular the resu lts Filtration Rate (GFR) sectio n. 30 To 44 (HCC) documented in this encounter Results (ABNORMAL) Calcium, Total (06/15/2021 2:17 PM LICENSED SALES ASSISTANT) P athologist Signature Calcium, 7.5 (L) 8.8 - 10.2 06/15/2021 OW[place] Total, P mg/dL 3:52 PM LICENSED SALES ASSISTANT Specimen Anatomical Collection Method Collection Time Receive d Time (Source) Location / / Volume Laterality Blood (Blood, 06/15/2021 2:17 PM 06/15/19 22 3:39 Venous) LICENSED SALES ASSISTANT PM LICENSED SALES ASSISTANT Hui Delgado APRN C.N.P., D.N.P. LAB BLOOD AD D-ON Performing Organization Address City/State/ZIP Code Phon e Number [facility]- [address] [place] [address] [place] [address] System in [place] [address] documented in this encounter Visit Diagnoses Diagnosis Hypertensive Chronic Kidney Disease (CKD ) Stage 3b Glomerular Filtration Rate (GFR) 30 To 44 (HCC) documented in this encounter Additional Health Concerns Assessment Noted Time PHQ-9 Depression Total Score: 3 01/03/2018 10:38 AM CD T documented as of this encounter Care Teams Application Helper Relationship Specialty Start Date End Date Elsewhere, Pcp PCP - General Family Medicine 01/29/20 documented as of this encounter
--- OUTSIDE RECORDS SUMMARY | 2022-03-31 07:47 | XMS_ITS | Encounter Summary ---
:1950 Author Organization [facility] Address [address] [place] [address] Care Team Providers Name Role Phone Elsewhere, Pcp Primary Care Provider Unavailable Encounter Details Date Type Department Care Team Description 06/01/2021 Orders Only Division of Nephrology Wellalfredoitter, Janel rtensive Chronic and Hypertension, Hui Reddy APRN, [facility], in C.N.P., D.N.P. Stage 3b Glomerular [place], [place] Filtration Rate (GFR) [address] [facility] 30 To 44 (HCC) (Primary [place], [place] Dx) [id number] Social History Tobacco Use Types Packs/Day Years [...] How often do you attend mormonism or judaism services? 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 Male 03/24/2021 8:13 PM FAMILY ENGAGEMENT SPECIALIST documented as of this encounter Plan of Treatment Not on filedocumented as of this encounter Results (ABNORMAL) Calcium, Total (06/15/2021 2:17 PM FAMILY ENGAGEMENT SPECIALIST) P athologist Signature Calcium, 7.5 (L) 8.8 - 10.2 06/15/2021 OW[place] Total, P mg/dL 3:52 PM FAMILY ENGAGEMENT SPECIALIST Specimen Anatomical Collection Method Collection Time Receive d Time (Source) Location / / Volume Laterality Blood (Blood, 06/15/2021 2:17 PM 06/15/19 22 3:39 Venous) FAMILY ENGAGEMENT SPECIALIST PM FAMILY ENGAGEMENT SPECIALIST Hui Delgado APRN, C.N.P., D.N.P. LAB BLOOD AD D-ON Performing Organization Address City/State/ZIP Code Phon e Number [facility]- [address] [place] [address] [place] [address] System in [place] [address] documented in this encounter Visit Diagnoses Diagnosis Hypertensive Chronic Kidney Disease (CKD ) Stage 3b Glomerular Filtration Rate (GFR) 30 To 44 (HCC) - Primary documented in this encounter Additional Health Concerns Assessment Noted Time PHQ-9 Depression Total Score: 3 01/03/2018 10:38 AM CD T documented as of this encounter Care Teams Full Service Vending Driver Relationship Specialty Start Date End Date Elsewhere, Pcp PCP - General Family Medicine 01/29/20 documented as of this encounter
--- OUTSIDE RECORDS SUMMARY | 2022-03-31 07:48 | XMS_ITS | Encounter Summary ---
:[address] [facility] Address [address] [place] [address] Care Team Providers Name Role Phone Elsewhere, Pcp Primary Care Provider Unavailable Encounter Details Date Type Department Care Team Description 02/10/2021 Hospital Encounter Department of Kemar Velásquez, Periphe ral Arterial Disease (HCC); Laboratory Medicine M.B.B.S. Diabetes Mellitus Type 2 With Other Circ ulatory Complication Hyperglycemic (HCC); and Pathology, [address] [place] [address] Atherosclerosis Arteriosclerosis Obliter ans Lower Extremity (HCC) [facility], in [facility] [address] [place] [phone] [place] [address] (Work) [place], [place] [phone] [phone] (Fax) [phone] Social History Tobacco Use Types Packs/Day Years [...] How often do you attend restoration or adventism services? 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 - [address] [place], [place] [address] [place] [address] [place], [place] [address] [place] [address] [address] [facility] Sodium (02/10/2021 8:27 AM CDT) P athologist Signature Sodium, S 138 135 - 145 02/10/2021 DTL mmol/L 10:06 AM CDT Specimen Anatomical Collection Method Collection Time Receive d Time (Source) Location / / Volume Laterality Blood (Blood, 02/10/2021 8:27 AM 02/11/20 21 9:07 Venous) CDT AM CDT Kemar DavidB.S. LAB BLOOD ADD-ON Performing Organization Address City/[facility]/ZIP Code Phon e Number [facility] - [address] [place] [address] (ABNORMAL) Potassium (02/10/2021 8:27 AM [...] Address City/State/ZIP Code Phon e Number [facility] - [address] [place] [address] [facility] [place], [place] [address] [place] [address] [place] [address] (ABNORMAL) Lipid Panel (02/10/2021 [...] Address City/State/ZIP Code Phon e Number [facility] - [address] [place], [place] [address] [facility] [place] [address] [facility] [address] Glucose, Fasting (02/10/2021 8:27 [...] LAB BLOOD NON ADD-ON Performing Organization Address [facility] Code Phon e Number [facility] - 200 [place], [place] [address] [facility] DTL [place], [place] [id number] [place] [address] (ABNORMAL) Creatinine with Estimated GFR (02/10/2021 8:27 AM CDT) Analysis Performed At Patho logist Time Signature Creatinine 3.20 (H) 0.74 - 02/10/2021 DTL 1.35 mg/dL 10:06 AM CDT eGFR-Non 19 (L) >=60 02/10/2021 DTL Black/ mL/min/BSA 10:06 AM CDT [place] Comment: ----ADDITIONAL INFORMATION---- Estimated GFR calculated using [...] Redman.S. LAB BLOOD ADD-ON Performing Organization Address City/State/[facility] Phon e Number [facility] - 200 [place], [place] [address] [facility] [place] [address] (ABNORMAL) CBC with Differential, Blood (02/10/2021 [...] Address City/State/ZIP Code Phon e Number [facility] - [address] [place], [place] [address] [facility] [place] [address] Laboratories-[facility] [address] AST (Aspartate Aminotransferase) (02/10/2021 8:27 AM CDT) [facility] gist Method Time Signature Aspartate 18 8 - 48 02/10/2021 DTL Aminotransferase U/L 10:06 AM CDT (AST), S Specimen Anatomical Collection Method Collection Time Receive d Time (Source) Location / / Volume Laterality Blood (Blood, 02/10/2021 8:27 AM 02/11/20 21 9:07 Venous) CDT AM CDT Kemar Reyes LAB BLOOD ADD-ON Performing Organization Address City/State/ZIP Code Phon e Number [facility] - [address] [place], [place] [address] [facility] [place] [address] [facility] [address] documented in this encounter Visit Diagnoses Diagnosis Peripheral Arterial Disease (HCC) Diabetes Mellitus Type 2 With Other Circ ulatory Complication Hyperglycemic (HCC) Atherosclerosis Arteriosclerosis Obliter ans Lower Extremity (HCC) documented in this encounter Additional Health Concerns Assessment Noted Time PHQ-9 Depression Total Score: 3 01/03/2018 10:38 AM CD T documented as of this encounter Care Teams Focused Factory Manager Relationship Specialty Start Date End Date Elsewhere, Pcp PCP - General Family Medicine 01/29/20 documented as of this encounter
--- OUTSIDE RECORDS SUMMARY | 2022-03-31 07:48 | XMS_ITS | Encounter Summary ---
:1950 Author Organization [facility] Address [address] [place] [address] Care Team Providers Name Role Phone Elsewhere, Pcp Primary Care Provider Unavailable Encounter Details Date Type Department Care Team Description 03/05/2021 Clinical Communication Division of Nephrology Peters, Trisha Carrizales, and Hypertension in [place], [place] [address] [facility] [address] [place] [phone] Social History Tobacco Use Types Packs/Day Years [...] How often do you attend yazdanism or congregation services? 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
--- OUTSIDE RECORDS SUMMARY | 2022-03-31 07:48 | XMS_ITS | Encounter Summary ---
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 [place] Procedures US Aorta Iliac Arteries Left with Doppler [address] [place] [address] Referral ID Status Reason Start Date Expiration Date Visits Requ ested Visits Authorized [id number] Closed 08/04/2020 08/04/2021 1 1 Encounter Details Date Type Department Care Team Description 02/06/2021 Hospital Encounter Department of Kemar Velásquez, Follow Up Exam ; Radiology, Santiago Reyes Peripheral Arterial Disease (HCC); [facility], in [address] [place] [address] Diabetes Mellitus Type 2 With Other Circ ulatory Complication Hyperglycemic (HCC); [place], [place] Atherosclerosi s Arteriosclerosis Obliterans Lower Extremity (HCC); [place] [address] Follow Up Exam 200 [facility] [phone] [place], [place] (Work) [phone] Social History Tobacco Use Types Packs/Day Years [...] How often do you attend caodaism or synagogue services? 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
--- OUTSIDE RECORDS SUMMARY | 2022-03-31 07:48 | XMS_ITS | Encounter Summary ---
:1950 Author Organization [facility] Address [address] [place] [phone] Care Team Providers Name Role Phone Elsewhere, Pcp Primary Care Provider Unavailable Reason for Visit Outpatient (Routine) - Closed Specialty Diagnoses / Procedures Referred By Contact Refer red To Contact Nutrition Diagnoses Chronic Kidney Disease Stage 4 Glomerular Filtration Rate 15-29 (HCC) Louise [facility] D[facility]N.P[facility] [address] [place] [address] [phone] Referral ID Status Reason Start Date Expiration Date Visits Requ ested Visits Authorized [id number] Closed 03/26/2021 03/26/2022 1 1 Encounter Details Date Type Department Care Team Description 04/08/2021 Virtual Visit Department of Celeste Hussein APRN, C.N.P., D.N.P. [address] [place] [phone] Chronic Kidney Nutrition in Bere Alvarez M.S., RDN, LD Disease Stage 4 [place], [place] Glomerular Filtration [address] [facility] Rate 15-29 (HCC) [place] [phone] Social History Tobacco Use Types Packs/Day Years [...] How often do you attend rastafarian or muslim services? 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 documented as of this encounter Last Filed Vital Signs Vital Sign Reading Time Taken Comments Blood Pressure - - Pulse - - Temperature - - Respiratory Rate - - Oxygen Saturation - - Inhaled Oxygen Concentration - - Weight 84.4 kg (186 lb 1.1 oz) 04/08/2021 8:04 AM ELECTROPHYSIOLOGY NURSE PRACTITIONER Height 175 cm (5' 8.9) 04/08/2021 8:05 AM ELECTROPHYSIOLOGY NURSE PRACTITIONER Body Mass Index 27.56 04/08/2021 8:04 AM ELECTROPHYSIOLOGY NURSE PRACTITIONER documented in this encounter Progress Notes Bere Alvarez M.S., OWEN, ADELAIDA - 04/08/2021 8:00 AM CST CHIEF COMPLAINT/REASON FOR VISIT Chronic kidney disease HISTORY OF PRESENT ILLNESS Visited with patient and spouse on speaker phone. Consult conducted via real- time audio technology by Maritza Alvarez, MS, OWEN, LD in [facility] to the patient's home. ASSESSMENT [...] per day Method to Estimate Energy Needs: [place]hall Mont[place]ongo-V[place]hall BEE (Basal): 1637 HB Adjusted: 1801 Total Calorie Needs: 9507-5228 calories NUTRITION DIAGNOSIS Food- and nutrition-related knowledge deficit related to no prior exposure to specific nutritional guidelines for chronic kidney disease as evidenced by questions asked. Nutrition Prescription/Recommendation 9317-0033 mg sodium, 65-75 grams protein, low potassium INTERVENTION Education: Discussed the importance of a kidney friendly diet low in sodium, adequate without excessive protein along with low potassium intake. MONITORING AND EVALUATION: Nutrition parameter to monitor: Food intake Desired Outcome: Maintain nutrition related lab values within target range Patient Goal(s): 1. 7494-1927 mg sodium 2. 65-75 gm protein 3. Select lower potassium foods most often 4. Avoid processed food FOLLOW UP PLAN: Encouraged follow up questions via patient online services. Time spent with patient (minutes): 30 TROPHYSIOLOGY NURSE PRACTITIONER documented in this encounter Plan of Treatment Not on filedocumented as of this encounter Visit Diagnoses Diagnosis Chronic Kidney Disease Stage 4 Glomerula r Filtration Rate 15-29 (HCC) documented in this encounter Additional Health Concerns Assessment Noted Time PHQ-9 Depression Total Score: 3 01/03/2018 10:38 AM CD T documented as of this encounter Care Teams Macaroni Press Operator Relationship Specialty Start Date End Date Elsewhere, Pcp PCP - General Family Medicine 01/29/20 documented as of this encounter
--- OUTSIDE RECORDS SUMMARY | 2022-03-31 07:48 | XMS_ITS | Encounter Summary ---
:1950 Author Organization [facility] Address [address] [place] [address] Care Team Providers Name Role Phone Elsewhere, Pcp Primary Care Provider Unavailable Reason for Visit Appointment Request (Routine) - Closed Specialty Diagnoses / Procedures Referred By Contact Refer red To Contact Nephrology and Hypertension Referral ID Status Reason Start Date Expiration Date Visits Requ ested Visits Authorized [id number] Closed 01/01/2021 01/01/2022 1 1 Encounter Details Date Type Department Care Team Description 02/04/2021 External Division of [facility] Chronic Kidney Disease Stage 4 Glomerular Filtration Rate 15-29 (HCC) (Primary Dx); Outreach Nephrology and , Hui Reddy, Anemia Of Chr onic Renal Disease; Hypertension in SENIOR DIRECTOR INSIGHT, Hypertension And Chronic Kidney Disease Stage 1 To 4; [place], [place] C.N.P., Diabetes Mellitus Type 2 (HC C); [address] [facility] D.N.P. Hyperparathyroidism Secondar y (HCC) [place] [address] Social History Tobacco Use Types Packs/Day Years [...] How often do you attend orthodox or mu-ism services? 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 Walton is a 71 y.o. male who presents for ongoing evaluation of chronic kidney disease. He was last seen in the [facility] visit by Dr. Menon on 09/29/20. He returns today reporting he feelswell and denies any signs or symptoms of uremia. He does report increased lower extremity swelling. In discussion he does not think the chlorthalidone helps increase his urination. Since his last appointment in nephrology he has started using the [employer] continuous glucose monitor. He reports this has [...] should use these agents very cautiously. Follow-up [facility] with lab in 1 week and again [...] as of this encounter Care Teams Credit Rating Inspector Relationship Specialty Start Date End Date Elsewhere, Pcp PCP - General Family Medicine 01/29/20 documented as of this encounter
--- OUTSIDE RECORDS SUMMARY | 2022-03-31 07:48 | XMS_ITS | Encounter Summary ---
:1950 Author Organization [facility] Address [address] [place] [address] Care Team Providers Name Role Phone Elsewhere, Pcp Primary Care Provider Unavailable Encounter Details Date Type Department Care Team Description 10/02/2020 Clinical Communication Division of Nephrology Haseeb Menon and Hypertension in [place] Sun D.O. [place], [place] [address] [facility] [address] [place] [phone] Social History Tobacco Use Types Packs/Day Years [...] How often do you attend sikh or holiness services? 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 - 10/02/2020 5:13 PM CDT Phone call note I asked him to check on his medications when he got home. As I visited with him in [facility] in [place] it appears though he was taking both [...] documented as of this encounter Care Teams Puller Through Relationship Specialty Start Date End Date Elsewhere, Pcp PCP - General Family Medicine 01/29/20 documented as of this encounter
--- OUTSIDE RECORDS SUMMARY | 2022-03-31 07:48 | XMS_ITS | Encounter Summary ---
:1950 Author Organization [facility] Address [address] [place] [address] Care Team Providers Name Role Phone Elsewhere, Pcp Primary Care Provider Unavailable Encounter Details Date Type Department Care Team Description 10/02/2020 Orders Only Division of Nephrology and Dilan Menon Hypertension in [place], ., D.O. [place] [address] [facility] [address] [place] [phone] (Wo rk) Social History Tobacco Use Types [...] How often do you attend mandaeism or jehovah's witness services? 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
--- OUTSIDE RECORDS SUMMARY | 2022-03-31 07:48 | XMS_ITS | Encounter Summary ---
:1950 Author Organization [facility] Address [address] [place] [address] Care Team Providers Name Role Phone Elsewhere, Pcp Primary Care Provider Unavailable Reason for Referral Specialty Diagnoses / Procedures Referred By Contact Refer red To Contact Louise Hussein APR[facility] C.N.P., D.N.P. [address] [place] [address] Referral ID Status Reason Start Date Expiration Date Visits Requ ested Visits Authorized utpatient (Routine) - Closed Specialty Diagnoses / Procedures Referred By Contact Refer red To Contact Nutrition Diagnoses Chronic Kidney Disease Stage 4 Glomerular Filtration Rate 15-29 (HCC) Louise Hussein APRN[facility] Services C.N.P., D.N.P. [address] [place] [address] Referral ID Status Reason Start Date Expiration Date Visits Requ ested Visits Authorized [id number] Closed 03/26/2021 03/26/2022 1 1 Scheduling Instructions This appointment should ideally be sched uled AFTER the Head Of Data Consults, but must at least be scheduled 48 hours afte r 24-hour urine collection is complete. Virtual visit is acceptable for this titian visit. RY PUMP OPERATOR Reason for Visit Appointment Request (Routine) - Closed Specialty Diagnoses / Procedures Referred By Contact Refer red To Contact Nephrology and Hypertension Referral ID Status Reason Start Date Expiration Date Visits Requ ested Visits Authorized [id number] Closed 03/05/2021 03/05/2022 1 1 Encounter Details Date Type Department Care Team Description 03/25/2021 Virtual Visit Division of Nephrology Hui Cohn APRN, C.N.Kinza., D.N.P. Chronic Kidney and Hypertension in [place], Louise Narayanan, Jennifer GALLEGON.Kinza., D.N.P. [address] [place] [address] Disease Stage 4 [place], [place] Glomerular [address] [facility] Filtration Rate [place], [place] 15-29 (HCC) (P rimary [id number] Dx) [phone] Social History Tobacco Use Types Packs/Day Years [...] How often do you attend holiness or spiritism services? 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 Male 03/24/2021 8:13 PM ROTARY PUMP OPERATOR documented as of this encounter Progress Notes Louise Hussein APRN, C.N.P., D.N.P. - 03/25/2021 8:30 AM CST Consult conducted via real-time audio technology by Louise Flores) JULIÁN Hussein, William.N.P., D.N.P. in [facility] to the patient in their home. Subjective: [...] have requested he been seen in the [place] [facility] in May, 2021. Louise Hussein (Peggy) OCEANOGRAPHY PROFESSOR/[id number] [facility] [place], [place] RY PUMP OPERATOR documented in this encounter Plan of Treatment Scheduled Referrals Name Type Priority Associated Order Schedule Diagnoses Nutrition - Outpatient Referral Routine Chronic Kidney Expect ed: Nephrology medical Disease Stage 4 2021 nutrition therapy Glomerular (Approxima te), consult (clinic) Filtration Rate Expires: ([facility]) 03/26/2024 Patient Education - Outpatient Referral Routine Chronic Kidney Expected: ESRD Treatment Disease Stage 4 05/27/2021 Options (Clinic) Glomerular (Approximat e), Filtration Rate Expires: ([facility]) 03/26/2024 documented as of this encounter Results (ABNORMAL) Albumin, Random, Urine (05/22/2021 10:05 AM ROTARY PUMP OPERATOR) Patholo gist Method Time Signature Microalbumin 594.0 mg/L 05/22/2021 OWAT 2:04 PM ROTARY PUMP OPERATOR Creatinine 39 mg/dL 05/22/2021 OWAT 1:44 PM ROTARY PUMP OPERATOR Albumin/Creatinin 1523 (H) <17 mg/g 05/22/2021 OWAT e Ratio 2:04 PM ROTARY PUMP OPERATOR Specimen Anatomical Collection Method Collection Time Receive d Time (Source) Location / / Volume Laterality Urine (Urine, 05/22/2021 10:05 05/22/2021 1:04 Clean Catch) AM ROTARY PUMP OPERATOR PM ROTARY PUMP OPERATOR Louise Hussein APRN, C.N.P., D.N.P. LAB URINE NATALYE XAVIER Performing Organization Address City/State/ZIP Code Phon e Number [facility]- [address] [place] [address] [place] [address] System in [place] [address] (ABNORMAL) Urinalysis with Microscopic: Urine, Midstream (05/22/2021 10:05 AM ROTARY PUMP OPERATOR) Analysis Performed At Patho logist Time Signature Source Urine, Urine, 05/22/2021 FB60 Midstream 10:06 AM ROTARY PUMP OPERATOR Clarity Clear Clear 05/22/2021 FB60 10:10 AM ROTARY PUMP OPERATOR Color Yellow 05/22/2021 FB60 10:10 AM ROTARY PUMP OPERATOR Comment: ----REFERENCE VALUE---- Colorless Yellow Cha Blood Trace (A) Negative 05/22/2021 10:10 AM ROTARY PUMP OPERATOR FB60 Nitrite Negative Negative 05/22/2021 10:10 AM ROTARY PUMP OPERATOR FB60 Leukocyte Esterase Negative Negative 05/22/2021 10:[address] FB60 Protein 100 (A) mg/dL 05/22/2021 10:10 AM ROTARY PUMP OPERATOR FB60 Comment: ----REFERENCE VALUE---- Negative Trace Glucose Negative Negative mg/dL 05/22/2021 10:10 AM ROTARY PUMP OPERATOR F B60 Ketones, QI(U) Negative Negative mg/dL 05/22/2021 10:10 AM ROTARY PUMP OPERATOR FB60 Bilirubin Negative Negative 05/22/2021 10:10 AM ROTARY PUMP OPERATOR FB60 pH 5.5 5.0 - 8.0 05/22/2021 10:10 AM ROTARY PUMP OPERATOR FB60 Specific [place] 1.015 1.001 - 1.035 05/22/2021 10:10 AM ROTARY PUMP OPERATOR FB60 Urobilinogen 0.2 0.2 - 1.0 mg/dL 05/22/2021 10:[address] FB60 White Blood Cells None Seen /hpf 05/22/2021 10:50 AM CS T FB60 Comment: ----REFERENCE VALUE---- Males: 0-3 Females: 0-10 Unknown: 0-10 Red Blood Cells None Seen 0 - 2 /hpf 05/22/2021 10:50 AM ROTARY PUMP OPERATOR FB60 Squamous Cells 4-10 /hpf 05/22/2021 10:50 AM ROTARY PUMP OPERATOR F B60 Specimen Anatomical Collection Method Collection Time Receive d Time (Source) Location / / Volume Laterality Urine (Urine, 05/22/2021 10:05 05/22/2021 Midstream) AM ROTARY PUMP OPERATOR 10:05 AM ROTARY PUMP OPERATOR Louise Hussein APRN, C.N.P., D.N.P. LAB URINE ORDE RABLES Performing Organization Address City/State/ZIP Code Phon e Number [address] [place] [address] [facility] [place] [address] (ABNORMAL) Iron and Total Iron-Binding Capacity (05/22/2021 10:00 AM ROTARY PUMP OPERATOR) P athologist Signature Iron 58 50 - 150 05/22/2021 [place] mcg/dL 4:02 PM ROTARY PUMP OPERATOR Total Iron 221 (L) 250 - 400 05/22/2021 [place] Binding mcg/dL 4:02 PM ROTARY PUMP OPERATOR Capacity Percent 26 14 - 50 % 05/22/2021 [place] Saturation 4:02 PM ROTARY PUMP OPERATOR Specimen Anatomical Collection Method Collection Time Receive d Time (Source) Location / / Volume Laterality Blood (Blood, 05/22/2021 10:00 05/22/2021 3:33 Venous) AM ROTARY PUMP OPERATOR PM ROTARY PUMP OPERATOR Louise Hussein APRN, C.N.P., D.N.P. LAB BLOOD ADD- ON Performing Organization Address City/State/ZIP Code Phon e Number [facility]- [address] [place] [address] [facility] [place] [address] [facility] [address] Ferritin (05/22/2021 10:00 AM ROTARY PUMP OPERATOR) athologist Signature Ferritin, S 120 31 - 409 05/22/2021 OW mcg/L 1:50 PM ROTARY PUMP OPERATOR Comment: Biotin has been identified by the lauryn currie as a potential interfering substance. ??Higher concentr ations of biotin may be found in multivitamins, hair/nail supple ments, and workout supplements. ??If the result does not [facility] clinical observations, repeat testing after patient refrains fr om the use of supplements for at least 12 hours. Specimen Anatomical Collection Method Collection Time Receive d Time (Source) Location / / Volume Laterality Blood (Blood, 05/22/2021 10:00 05/22/2021 1:03 Venous) AM ROTARY PUMP OPERATOR PM ROTARY PUMP OPERATOR William Lopez APRN.N.P., D.N.P. LAB BLOOD ADD- ON Performing Organization Address City/State/ZIP Code Phon e Number [facility]- [address] [place] [address] [facility] [place] [address] System in [place] [address] [place] [address] HBs Antibody, Serum (05/22/2021 10:00 AM ROTARY PUMP OPERATOR) athologist Signature HBs Antibody, Negative 05/22/2021 [place] S 4:45 PM ROTARY PUMP OPERATOR Comment: ----REFERENCE VALUE---- Unvaccinated: Negative Vaccinated: Positive HBs Antibody, Quantitative, S <3.5 mIU/mL 05/22/2021 4:45 PM ROTARY PUMP OPERATOR AUST Comment: ----REFERENCE VALUE---- <8.50: Negative 8.50-11.49: Indeterminate >=11.50: Positive Specimen Anatomical Collection Method Collection Time Receive d Time (Source) Location / / Volume Laterality Blood (Blood, 05/22/2021 10:00 05/22/2021 3:33 Venous) AM ROTARY PUMP OPERATOR PM ROTARY PUMP OPERATOR Louise Hussein APRN, C.N.P., D.N.P. LAB MICROBIOLO GY - BLOOD ORDERABLES Performing Organization Address City/[facility] Phon e Number [facility]- [address] [place] [address] [facility] [place], [place] [address] [place] [address] HBc Total Ab, Serum (05/22/2021 10:00 AM ROTARY PUMP OPERATOR) P athologist Signature HBc Total Ab, Negative Negative 05/23/2021 [facility] S 9:56 AM ROTARY PUMP OPERATOR Specimen Anatomical Collection Method Collection Time Receive d Time (Source) Location / / Volume Laterality Blood (Blood, 05/22/2021 10:00 05/23/2021 8:42 Venous) AM ROTARY PUMP OPERATOR AM ROTARY PUMP OPERATOR William Lopez APRN.N.P., D.N.P. LAB MICROBIOLO GY - BLOOD ORDERABLES Performing Organization Address [facility] Phon e Number [facility] [address] [place] [address] SUPPORT CENTER [facility] [place] [address] Laboratory Medicine and Pathology [address] [place] [address] Dr. RAIN Hepatitis B Surface Antigen (05/22/2021 10:00 AM ROTARY PUMP OPERATOR) [facility] Method Time Signature HBs Antigen, Nonreactive Nonreactive 05/22/2021 AUS S 4:45 PM ROTARY PUMP OPERATOR Comment: Biotin has been identified by the lauryn currie as a potential interfering substance. ??Higher concentr ations of biotin may be found in multivitamins, hair/nail supple ments, and workout supplements. ??If the result does not [facility] clinical observations, repeat testing after patient refrains fr om the use of supplements for at least 12 hours. Specimen Anatomical Collection Method Collection Time Receive d Time (Source) Location / / Volume Laterality Blood (Blood, 05/22/2021 10:00 05/22/2021 3:33 Venous) AM ROTARY PUMP OPERATOR PM ROTARY PUMP OPERATOR Louise Hussein APRN, William.N.P., D.N.P. LAB MICROBIOLO GY - BLOOD ORDERABLES Performing Organization Address City/[facility]/ZIP Code Phon e Number [facility]- [address] [place] [address] [facility] [place], [place] [address] [place] [address] (ABNORMAL) Cystatin C with Estimated GFR, S (05/22/2021 10:00 AM ROTARY PUMP OPERATOR) P athologist Signature eGFR by 19 (L) >60 05/23/2021 DTL Cystatin C mL/min/BSA 7:05 AM ROTARY PUMP OPERATOR Comment: Estimated GFR calculated using the CKD-E [...] 0.67 - 1.21 mg/L 05/23/2021 7:05 AM ROTARY PUMP OPERATOR DTL Specimen Anatomical Collection Method Collection Time Receive d Time (Source) Location / / Volume Laterality Blood (Blood, 05/22/2021 10:00 05/23/2021 6:48 Venous) AM ROTARY PUMP OPERATOR AM ROTARY PUMP OPERATOR Louise Hussein APRN, C.N.P., D.N.P. LAB BLOOD ADD- ON Performing Organization Address City/State/ZIP Code Phon e Number [facility] - [address] [place], [place] [address] [facility] [place] [address] Laboratories-[facility] [address] (ABNORMAL) Parathyroid Hormone (PTH) (05/22/2021 10:00 AM ROTARY PUMP OPERATOR) Analysis Performed At Patho logist Time Signature Parathyroid 260 (H) 15 - 65 05/22/2021 [place] Hormone (PTH), S pg/mL 4:17 PM ROTARY PUMP OPERATOR Comment: Biotin has been identified by the lauryn chavezurer as a potential interfering substance. ??Higher concentr ations of biotin may be found in multivitamins, hair/nail supple ments, and workout supplements. ??If the result does not [facility] clinical observations, repeat testing after patient refrains fr om the use of supplements for at least 12 hours. Specimen Anatomical Collection Method Collection Time Receive d Time (Source) Location / / Volume Laterality Blood (Blood, 05/22/2021 10:00 05/22/2021 3:33 Venous) AM ROTARY PUMP OPERATOR PM ROTARY PUMP OPERATOR William Lopez APRN.N.P., D.N.P. LAB BLOOD ADD- ON Performing Organization Address City/State/ZIP Code Phon e Number [facility]- [address] [place] [address] [facility] [place] [address] [facility] [address] (ABNORMAL) Renal Function Panel (05/22/2021 10:00 AM ROTARY PUMP OPERATOR) Analysis Performed At Patho logist Time Signature Potassium, P 4.7 3.6 - 5.2 05/22/2021 [place] mmol/L 1:39 PM ROTARY PUMP OPERATOR Sodium, P 137 135 - 145 05/22/2021 [place] mmol/L 1:39 PM ROTARY PUMP OPERATOR Chloride, P 104 98 - 107 05/22/2021 [place] mmol/L 1:39 PM ROTARY PUMP OPERATOR Bicarbonate, P 23 22 - 29 05/22/2021 [place] mmol/L 1:39 PM ROTARY PUMP OPERATOR Anion Gap, P 10 7 - 15 05/22/2021 [place] 1:39 PM ROTARY PUMP OPERATOR BUN (Blood Urea 36 (H) 8 - 24 05/22/2021 [place] Nitrogen), P mg/dL 1:39 PM ROTARY PUMP OPERATOR Creatinine 2.59 (H) 0.74 - 05/22/2021 [place] 1.35 mg/dL 1:39 PM ROTARY PUMP OPERATOR eGFR-Black/Afri 28 (L) >=60 05/22/2021 [place] can [place] mL/min/BSA 1:39 PM ROTARY PUMP OPERATOR Comment: ----ADDITIONAL INFORMATION---- Estimated GFR calculated using the 2009 CKD_EPI creatinine equation. eGFR Non-Black/ 24 (L) >=60 mL/min/BSA 05/22/2021 1:39 PM ROTARY PUMP OPERATOR [place] Comment: ----ADDITIONAL INFORMATION---- Estimated GFR calculated using the 2009 CKD_EPI creatinine equation. Calcium, Total, P 7.8 (L) 8.8 - 10.2 mg/dL 05/22/2021 1:39 PM ROTARY PUMP OPERATOR [place] Glucose, P 133 70 - 140 mg/dL 05/22/2021 1:39 PM ROTARY PUMP OPERATOR O TERI Albumin, P 3.8 3.5 - 5.0 g/dL 05/22/2021 1:39 PM ROTARY PUMP OPERATOR O TERI Phosphorus (Inorganic), P 4.3 2.5 - 4.5 mg/dL 05/22/19 22 4:11 PM ROTARY PUMP OPERATOR AUST Specimen Anatomical Collection Method Collection Time Receive d Time (Source) Location / / Volume Laterality Blood (Blood, 05/22/2021 10:00 05/22/2021 1:04 Venous) AM ROTARY PUMP OPERATOR PM ROTARY PUMP OPERATOR Narrative [facility] [place] [facility] - 05/22/2021 4:11 PM ROTARY PUMP OPERATOR Specimen Information: Specimen ID: [id number] Specimen Type: Blood Specimen Collection Start Date: 2 10:00 AM Specimen Received Date: 05/22/2021 ??1:04 PM Specimen ID: [id number] Specimen Type: Blood Specimen Collection Start Date: 2 10:00 AM Specimen Received Date: 05/22/2021 ??3:33 PM Louise Hussein APRN, C.N.P., D.N.P. LAB BLOOD ADD- ON Performing Organization Address City/State/ZIP Code Phon e Number [facility]- [address] [place], [place] [phone] [place] [address] [place] [address] System in [place] [address] [facility] [place] [address] [facility] [address] (ABNORMAL) CBC without Differential (05/22/2021 10:00 AM ROTARY PUMP OPERATOR) [facility] g[facility] Method Time Signature Hemoglobin 11.1 (L) 13.2 - 05/22/2021 FB60 16.6 g/dL 10:11 AM ROTARY PUMP OPERATOR Hematocrit 33.9 (L) 38.3 - 05/22/2021 FB60 48.6 % 10:11 AM ROTARY PUMP OPERATOR Erythrocytes 3.55 (L) 4.35 - 05/22/2021 FB60 5.65 10:11 AM ROTARY PUMP OPERATOR x10(12)/L MCV 95.5 78.2 - 05/22/2021 FB60 97.9 fL 10:11 AM ROTARY PUMP OPERATOR RBC Distrib Width 14.1 11.8 - 05/22/2021 FB60 14.5 % 10:11 AM ROTARY PUMP OPERATOR Platelet Count 248 135 - 317 05/22/2021 FB60 x10(9)/L 10:11 AM ROTARY PUMP OPERATOR Leukocytes 16.2 (H) 3.4 - 9.6 05/22/2021 FB60 x10(9)/L 10:11 AM ROTARY PUMP OPERATOR Specimen Anatomical Collection Method Collection Time Receive d Time (Source) Location / / Volume Laterality Blood (Blood, 05/22/2021 10:00 05/22/2021 Venous) AM ROTARY PUMP OPERATOR 10:01 AM ROTARY PUMP OPERATOR Louise Hussein APRN, C.N.P., D.N.P. LAB BLOOD ADD- ON Performing Organization Address City/State/ZIP Code Phon e Number [address] [place] [address] [facility] [address] [place] [address] System [address] documented in this encounter Visit Diagnoses Diagnosis Chronic Kidney Disease Stage 4 Glomerula r Filtration Rate 15-29 (HCC) - Primary Chronic Kidney Disease Stage 4 Glomerula r Filtration Rate 15-29 (HCC) documented in this encounter Additional Health Concerns Assessment Noted Time PHQ-9 Depression Total Score: 3 01/03/2018 10:38 AM CD T documented as of this encounter Care Teams Dumper Bailer Operator Relationship Specialty Start Date End Date Elsewhere, Pcp PCP - General Family Medicine 01/29/20 documented as of this encounter
--- OUTSIDE RECORDS SUMMARY | 2022-03-31 07:48 | XMS_ITS | Encounter Summary ---
:1950 Author Organization [facility] Address [address] [place] [address] Care Team Providers Name Role Phone Elsewhere, Pcp Primary Care Provider Unavailable Reason for Visit Reason Comments Labs Only Encounter Details Date Type Department Care Team Description 03/09/2021 Clinical Communication Division of Nephrology Trisha Peters, Labs Only and Hypertension in [place] [address] [facility] [address] [place] [phone] [phone] Social History Tobacco Use Types Packs/Day Years [...] How often do you attend yarsani or zoroastrianism services? 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 - 03/09/2021 11:46 AM CDT Labs completed at: [facility] Lab Lab Fax: Date Collected 02/25/21 [...] documented as of this encounter Care Teams Interviewing Clerk Relationship Specialty Start Date End Date Elsewhere, Pcp PCP - General Family Medicine 01/29/20 documented as of this encounter
--- OUTSIDE RECORDS SUMMARY | 2022-03-31 07:48 | XMS_ITS | Encounter Summary ---
:1950 Author Organization [facility] Address [address] [place] [address] Care Team Providers Name Role Phone Elsewhere, Pcp Primary Care Provider Unavailable Reason for Visit Reason Comments Labs Only-outside labs Encounter Details Date Type Department Care Team Description 03/24/2021 Clinical Communication Division of Abbey Kruse Labs Only-outside Nephrology and M, R.N. labs Hypertension in [address] [place] [address] [address] [facility] [phone] Social History Tobacco Use Types Packs/Day Years [...] week 03/25/2021 How often do you attend baptism or temple services? 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 - 03/24/2021 4:19 PM CST Labs completed at: [facility] Lab Lab Fax: Date Collected 03/18/21 02/25/21 CBC Hemoglobin WBC Platelets Absolute Neutrophils Chem Panel Sodium Potassium 5.6 5.5 Chloride Creatinine 3.0 BUN CO2 23 Glucose HgbA1C Calcium 8.0 Phosphorus Uric Acid PTH Albumin Liver Function AST Alk Phosphatase Total Bili Urine Studies Microalbuminuria Random 24 hour urine protein Protein-creatinine ratio Albumin-creatinine ratio Total Urine Volume Other test OCOPYING EQUIPMENT REPAIRER documented in this encounter Plan of Treatment Not on filedocumented as of this encounter Visit Diagnoses Not on filedocumented in this encounter Additional Health Concerns Assessment Noted Time PHQ-9 Depression Total Score: 3 01/03/2018 10:38 AM CD T documented as of this encounter Care Teams Fagoting Machine Operator Relationship Specialty Start Date End Date Elsewhere, Pcp PCP - General Family Medicine 01/29/20 documented as of this encounter
--- OUTSIDE RECORDS SUMMARY | 2022-03-31 07:48 | XMS_ITS | Encounter Summary ---
:1950 Author Organization [facility] Address [address] [place] [address] Care Team Providers Name Role Phone Elsewhere, Pcp Primary Care Provider Unavailable Encounter Details Date Type Department Care Team Description 02/13/2021 Clinical Communication Division of Nephrology Wellerri tter, and Hypertension in [place] C.N.P., D.N.P. [address] [place] [address] Social History Tobacco Use Types Packs/Day Years [...] often do you attend latter day or sabianism services? 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 - 02/13/2021 4:15 PM CDT Lab work from February 10, 2021 shows a creatinine worsening of 3.20 with an EGFR of 19 and a potassium is 6.0. He was seen in the [facility] in [place] on February 04, 2021. At that time [...] He will repeat his blood work in [place] on Tuesday with a creatinine and a [...] documented as of this encounter Care Teams Shot Core Drill Operator Helper Relationship Specialty Start Date End Date Elsewhere, Pcp PCP - General Family Medicine 01/29/20 documented as of this encounter
--- OUTSIDE RECORDS SUMMARY | 2022-03-31 07:48 | XMS_ITS | Encounter Summary ---
:1950 Author Organization [facility] Address [address] [place] [address] Care Team Providers Name Role Phone Elsewhere, Pcp Primary Care Provider Unavailable Encounter Details Date Type Department Care Team Description 03/26/2021 Orders Only [facility] PCP [facility] Sa barbara Jean M.D. [address] [place], [place] [phone] (Wo rk) Social History [...] How often do you attend religious or worship services? 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
--- OUTSIDE RECORDS SUMMARY | 2022-03-31 07:48 | XMS_ITS | Encounter Summary ---
:1950 Author Organization [facility] Address [address] [place] [address] Care Team Providers Name Role Phone Elsewhere, Pcp Primary Care Provider Unavailable Reason for Visit Reason Comments medication clarification Encounter Details Date Type Department Care Team Description 10/01/2020 Clinical Division of Sinan, medication Communication Nephrology and robert Toscano Jr. on Hypertension in [place], [place] [address] [facility] [address] [place] [phone] Social History Tobacco Use Types Packs/Day Years [...] How often do you attend yazidism or samaritan services? 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 He would like you to call him with recommendations going forward. His number is [phone]. Thanks documented in this encounter Plan of Treatment Not on filedocumented as of this encounter Visit Diagnoses Not on filedocumented in this encounter Additional Health Concerns Assessment Noted Time PHQ-9 Depression Total Score: 3 01/03/2018 10:38 AM CD T documented as of this encounter Care Teams Pretzel Cooker Relationship Specialty Start Date End Date Elsewhere, Pcp PCP - General Family Medicine 01/29/20 documented as of this encounter
--- OUTSIDE RECORDS SUMMARY | 2022-03-31 07:48 | XMS_ITS | Encounter Summary ---
:1950 Author Organization [facility] Address [address] [place] [address] Care Team Providers Name Role Phone Elsewhere, Pcp Primary Care Provider Unavailable Reason for Visit Outpatient (Routine) - Closed Specialty Diagnoses / Procedures Referred By Contact Refer red To Contact Diagnoses Peripheral Arterial Disease (HCC) Diabetes Mellitus Type 2 With Other Circulatory Complication Hyperglycemic (HCC) 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) Kemar Velásquez M.B.B.S. [facility] Procedures Lower Extremity Arterial (MIMI) - Standard Protocol Lower Extremity Arterial (MIMI) - Exercise (Claudication) [address] [place] [address] Referral ID Status Reason Start Date Expiration Date Visits Requ ested Visits Authorized [id number] Closed 08/04/2020 08/04/2021 1 1 Encounter Details Date Type Department Care Team Description 02/06/2021 Hospital Encounter Department of Kemar Velásquez, Katherine ral Arterial Disease (HCC); Vascular Medicine M.B.B.S. Diabetes Mellitus Type 2 With Other Circ ulatory Complication Hyperglycemic (HCC); in [place], [address] [facility] Atherosclerosis Arteriosclerosis Obliter ans Lower Extremity (HCC) [place], [place] [address] [facility] [address] [place], [place] [phone] (Work) [phone] Social History Tobacco Use Types Packs/Day Years [...] How often do you attend caodaism or muslim services? 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
--- OUTSIDE RECORDS SUMMARY | 2022-03-31 07:48 | XMS_ITS | Encounter Summary ---
:1950 Author Organization [facility] Address [address] [place] [address] Care Team Providers Name Role Phone Elsewhere, Pcp Primary Care Provider Unavailable Reason for Visit Reason Comments Patient Education Encounter Details Date Type Department Care Team Description 04/08/2021 Education Department of Patient Oracio Hussein, JULIÁN, C.N.P., D.N.P. [address] [place] [address] Chronic Kidney Disease Education in Danica Hawley M.S. Stage 4 Glomerular [place], [place] Filtration Rate 15-29 [address] [facility] [place] [address] Social History Tobacco Use Types Packs/Day Years [...] How often do you attend jew or religion services? 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
--- OUTSIDE RECORDS SUMMARY | 2022-03-31 07:48 | XMS_ITS | Encounter Summary ---
:1950 Author Organization [facility] Address [address] [place] [address] Care Team Providers Name Role Phone Elsewhere, Pcp Primary Care Provider Unavailable Reason for Referral Outpatient (Routine) - Closed Specialty Diagnoses / Procedures Referred By Contact Refer red To Contact Diagnoses Peripheral Arterial Disease (HCC) Diabetes Mellitus Type 2 With Other Circulatory Complication Hyperglycemic (HCC) 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) Kemar Velásquez M.B.B.S. [facility] Procedures [place] Lower Extremity Arteries Bilateral [address] [place] [address] Referral ID Status Reason Start Date Expiration Date Visits Requ ested Visits Authorized [id number] Closed 08/04/2020 08/04/2021 1 1 Reason for Visit Outpatient (Routine) - Closed Specialty Diagnoses / Procedures Referred By Contact Refer red To Contact Diagnoses Peripheral Arterial Disease (HCC) Diabetes Mellitus Type 2 With Other Circulatory Complication Hyperglycemic (HCC) 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) Kemar Velásquez M.B.B.S. [facility] Procedures US Lower Extremity Arteries Bilateral [address] [place] [address] Referral ID Status Reason Start Date Expiration Date Visits Requ ested Visits Authorized [id number] Closed 08/04/2020 08/04/2021 1 1 Encounter Details Date Type Department Care Team Description 02/06/2021 Hospital Encounter Department of Kemar Velásquez Periphe ral Arterial Disease (HCC); Radiology, Santiago Reyes Diabetes Mellitus Type 2 With Other Circ ulatory Complication Hyperglycemic (HCC); Building, in [address] [place] [address] Atherosclerosis Arteriosclerosis Obliter ans Lower Extremity (HCC) [facility] [address] [address] [facility] [phone] [place], [place] (Work) [address] [phone] Social History Tobacco Use Types Packs/Day Years [...] How often do you attend alevism or amish services? 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
--- OUTSIDE RECORDS SUMMARY | 2022-03-31 07:48 | XMS_ITS | Encounter Summary ---
:1950 Author Organization [facility] Address [address] [place] [address] Care Team Providers Name Role Phone Elsewhere, Pcp Primary Care Provider Unavailable Reason for Visit Outpatient (Routine) - Closed Specialty Diagnoses / Procedures Referred By Contact Refer red To Contact Vascular Medicine Diagnoses Peripheral Arterial Disease (HCC) Diabetes Mellitus Type 2 With Other Circulatory Complication Hyperglycemic (HCC) 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) [facility] [address] [place] [address] Referral ID Status Reason Start Date Expiration Date Visits Requ ested Visits Authorized [id number] Closed 08/04/2020 08/04/2021 1 1 Encounter Details Date Type Department Care Team Description 02/10/2021 Comprehensive Visit Department of [facility], Follow Up Examination Status Post Surgery (Primary Dx); Vascular Medicine Jayjay A, Peripheral Arterial Disease (HCC); in [place], P.A.-C. Diabetes Mellitus Type 2 With Other Circ ulatory Complication Hyperglycemic (HCC); [place] [address] [facility] Hypertensive Chronic Kidney Disease (CKD ) Stage 3b Glomerular Filtration Rate (GFR) 30 To 44 (HCC) [address] [place] [address] [phone] Social History Tobacco Use Types Packs/Day Years [...] How often do you attend jainism or jehovah's witness services? 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 - 02/10/2021 10:30 AM CDT REFERRAL SOURCE Kemar Velásquez M.B.B.S. [address] [place] [address] SUBJECTIVE CHIEF COMPLAINT / REASON FOR VISIT [...] documented as of this encounter Care Teams Diving Board Assembler Relationship Specialty Start Date End Date Elsewhere, Pcp PCP - General Family Medicine 01/29/20 documented as of this encounter
--- OUTSIDE RECORDS SUMMARY | 2022-03-31 07:48 | XMS_ITS | Encounter Summary ---
:1950 Author Organization [facility] Address [address] [place] [address] Care Team Providers Name Role Phone Elsewhere, Pcp Primary Care Provider Unavailable Encounter Details Date Type Department Care Team Description 02/24/2021 Clinical Communication Division of Nephrology Wellerri tter, and Hypertension, [facility] C.N[facility]P., D.N.P. [place], [place] [address] [place] [address] Social History Tobacco Use Types Packs/Day Years [...] How often do you attend rastafari or samaritan services? 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
--- OUTSIDE RECORDS SUMMARY | 2022-03-31 07:49 | XMS_ITS | Encounter Summary ---
:1950 Author Organization [facility] Address [address] [place] [address] Care Team Providers Name Role Phone Elsewhere, Pcp Primary Care Provider Unavailable Encounter Details Date Type Department Care Team Description 06/16/2020 Orders Only Division of Nephrology Haseeb Menon Mellitus Type 2 With Other Circulatory Complication Hyperglycemic (HCC) (Primary Dx); and Hypertension in William Sun D.O. 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 documented as of this encounter Plan of Treatment Not on filedocumented as of this encounter Visit Diagnoses Diagnosis Diabetes Mellitus Type 2 With Other Circ ulatory Complication Hyperglycemic (HCC) - Primary 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
--- OUTSIDE RECORDS SUMMARY | 2022-03-31 07:49 | XMS_ITS | Encounter Summary ---
:1950 Author Organization [facility] Address [address] [place] [address] Care Team Providers Name Role Phone Elsewhere, Pcp Primary Care Provider Unavailable Reason for Visit Reason Comments Med Refill Encounter Details Date Type Department Care Team Description 08/25/2020 Refill Department of Family Medicine, Bambi Adler Med Refill [facility], in Renee Phillips M.D. [place] [address] [place] [address] [place] [address] [phone] Social History Tobacco Use Types Packs/Day Years [...] week 03/25/2021 How often do you attend spiritism or hindu services? 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
--- OUTSIDE RECORDS SUMMARY | 2022-03-31 07:49 | XMS_ITS | Encounter Summary ---
:1950 Author Organization [facility] Address [address] [place] [address] Care Team Providers Name Role Phone Elsewhere, Pcp Primary Care Provider Unavailable Reason for Visit Appointment Request (Routine) - Closed Specialty Diagnoses / Procedures Referred By Contact Refer red To Contact Nephrology and Rudy Riddle Hypertension [address] [place] [address] Referral ID Status Reason Start Date Expiration Date Visits Requ ested Visits Authorized [id number] Closed 06/12/2020 06/12/2021 1 1 Encounter Details Date Type Department Care Team Description 06/16/2020 External Outreach Division of [place], Hypertensi ve Chronic Kidney Disease (CKD) Stage 3b Glomerular Filtration Rate (GFR) 30 To 44 (HCC) (Primary Dx); Nephrology and Haseeb Thomas Jr., Atherosclero sis Of [place] Ar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 (HCC); Hypertension in [place].O. Diabetes Mellitus Type 2 With Other Circ ulatory Complication Hyperglycemic (HCC); [place], [place] [address] [facility] Osteodystrophy Renal; [address] [place], [place]emia [place] [address] [phone] Social History Tobacco Use Types Packs/Day Years [...] How often do you attend shinto or buddhist services? 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 D.O. - 06/16/2020 3:30 PM CST Please see scanned in note under document viewer tab for the [facility] outreach visit from this date. 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
--- OUTSIDE RECORDS SUMMARY | 2022-03-31 07:49 | XMS_ITS | Encounter Summary ---
:1950 Author Organization [facility] Address [address] [place] [address] Care Team Providers Name Role Phone Elsewhere, Pcp Primary Care Provider Unavailable Reason for Visit Reason Comments Med Refill Encounter Details Date Type Department Care Team Description 08/21/2020 Refill Department of Family Medicine, Bambi Adler Med Refill [facility], in Renee Phillips M.D. [place] [address] [place] [address] [place] [address] [phone] Social History Tobacco Use Types Packs/Day Years [...] How often do you attend voodoo or evangelical services? 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
--- OUTSIDE RECORDS SUMMARY | 2022-03-31 07:49 | XMS_ITS | Encounter Summary ---
:1950 Author Organization [facility] Address [address] [place] [address] Care Team Providers Name Role Phone Elsewhere, Pcp Primary Care Provider Unavailable Reason for Visit Reason Comments COVID Inquiry Encounter Details Date Type Department Care Team Description 05/12/2020 Clinical Communication Division of Vascular Hallie Velásquez ad, COVID Inquiry and Endovascular M.B.B.S. Surgery in [place], [facility] [address] [place], [place] [address] [place] [address] [place], [place] [phone] [address] (Work) [phone] Social History Tobacco Use Types Packs/Day Years [...] week 03/25/2021 How often do you attend sabianist or adventist services? 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 ER MACHINE documented in this encounter Plan of Treatment Not on filedocumented as of this encounter Visit Diagnoses Not on filedocumented in this encounter Additional Health Concerns Assessment Noted Time PHQ-9 Depression Total Score: 3 01/03/2018 10:38 AM CD T documented as of this encounter Care Teams Saddle And Harness Maker Relationship Specialty Start Date End Date Elsewhere, Pcp PCP - General Family Medicine 01/29/20 documented as of this encounter
--- OUTSIDE RECORDS SUMMARY | 2022-03-31 07:49 | XMS_ITS | Encounter Summary ---
:1950 Author Organization [facility] Address [address] [place] [address] Care Team Providers Name Role Phone Elsewhere, Pcp Primary Care Provider Unavailable Encounter Details Date Type Department Care Team Description 05/08/2020 - Hospital Encounter [facility] David Zavaleta M.D., M.S. [address] [place] [phone] Pneumonia Community Acquired (Primary Dx ); 05/10/2020 [facility] Delmy Flores, M.B.A. [address] [place] [phone] Acute Respiratory Failure With Hypoxia ( HCC) [facility] Bebeto Finley M.D., M.S. [address] [place] [phone] [facility], Eighth Floor [address] [place] [phone] Social History Tobacco Use Types Packs/Day [...] How often do you attend presybeterian or yazidism services? Never 03/25/2021 Do you [...] or the highest technical, or vocational [employer] degree you have received? 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 8:13 PM FACULTY HEAD documented as of this encounter Last Filed Vital Signs Vital Sign Reading Time Taken Comments Blood Pressure 144/75 05/10/2020 12:45 PM FACULTY HEAD Pulse 87 05/10/2020 12:30 PM FACULTY HEAD Temperature 36.7 ??C (98.1 ??F) 05/10/2020 12:30 PM FACULTY HEAD Respiratory Rate 31 05/10/2020 1:45 PM FACULTY HEAD Oxygen Saturation 96% 05/10/2020 12:30 PM FACULTY HEAD Inhaled Oxygen Concentration - - Weight 79.8 kg (175 lb 14.8 oz) 05/09/2020 5:00 AM FACULTY HEAD Height 175 cm (5' 8.9) 05/08/2020 3:00 PM FACULTY HEAD Body Mass Index 26.06 05/08/2020 3:00 PM FACULTY HEAD documented in this encounter Discharge Summaries Niels Casey M.D. - 05/10/2020 12:32 PM CST DISCHARGE SUMMARY BRIEF OVERVIEW Hospital: [facility] Discharge Provider: Mark Cabrera M.D. Primary Team: [facility] Medicine 9 ([facility]) Primary Care Providers: Elsewhere, Pcp (General) No [...] transferred after admission to the hospital in [place] with an episode of an acute onset [...] were provided to the patient and caregiver(s). LTY HEAD documented in this encounter Discharge Instructions Discharge InstructionsJuju Concepcion - 05/08/2020 10:35 AM CST You were discharged from the [place] [address] ([facility]) Service. Please identify this service name if you call with questions after hospitalization. LTY HEAD AttachmentsThe following attachments cannot be sent through Care Everywhere. Carvedilol (By mouth) (Prydeinig)Chlorthalidone (By mouth) (Prydeinig)documented in this encounter Medications at Time of [...] lower than patient SpO2 is considered artifact. LTY HEAD Niels Casey M.D. - 05/09/2020 2:12 PM CST T Medicine 9 ([facility]) Progress Notes SUBJECTIVE Overnight he required up [...] / PLAN Mr. Walton is hospitalized on [place] [address] ([facility]) for evaluation and management of Acute Respiratory Failure With Hypoxia ([facility]). #1 Hypertension And Chronic Kidney Disease Stage 1 To 4 #2 Diabetes Mellitus Type 2 With Other Circulatory Complication Hyperglycemic (HCC) #3 Hypertension NOS #4 Acute Respiratory Failure With Hypoxia ([facility]) #5 Pneumonia Community Acquired Mr. Walton is [...] (not yet met): Tests/procedures/consults Counseling was provided [id number] at bedside regarding the plan of care as stated above. I personally spent over half of a total 25 minutes in counseling and coordination of care as documented above. LTY HEAD Kaylyn Sultana R.R.T., L.RJorge. - 05/08/2020 10:36 PM CST Overnight oximeter placed on patient with a SpO2 reading 90% on room air. No signs of respiratory distress noted while RT was in the room. Electronically signed by: Kaylyn Sultana R.R.T., L.R.T. 05/08/20 10:37 PM FACULTY HEAD LTY HEAD documented in this encounter H&P Notes Bebeto Ayala M.D., M.S. - 05/08/2020 11:37 AM CST [facility] Medicine 9 ([facility]) Admission Note SUBJECTIVE CHIEF COMPLAINT HISTORY OF PRESENT ILLNESS Mr. Onesimo Walton is a 70 y.o. male who was transferred after admission to the hospital in [place] with an episode of an acute onset [...] needed for pain (takes 10mg everyday between [id number].). ??? oxyCODONE-acetaminophen (PERCOCET) 5-325 mg per tablet, [...] reviewed the labs, ECG and xray from [facility] ASSESSMENT / PLAN #1 Acute Respiratory [...] heparin Code status: Full Code Disposition: Home LTY HEAD documented in this encounter Consult Notes Maite Kerns R.N. - 05/10/2020 11:44 AM CSTAssociated Order(s): IP CONSULT TO CARE MANAGEMENT Discharge Planning Assessment SUBJECTIVE Referral Data Referral Source: Early Screen for Discharge Planning Referral Reason: Discharge Planning Discharge Planning: Early screen discharge, Other (Comment)(oxygen) Who was present during the interview?: Patient Side Puller Services Used: No Patient Information Primary Caregiver: [...] Behavior: Oriented Communication: Talks, Understands speaking, Understands Prydeinig Environmental Supports Home Environment: House Anticipated Modifications to the Patient's Home: None Anticipated Needs/Assistive Devices ADL Anticipated Needs: None Equipment Anticipated Needs: Other (comment)(oxygen) Transportation Needs: Independent to drive, Support from family Finance/Insurance Primary insurance: MEDICARE A AND B Secondary insurance: Divergence Does the Patient have any Financial Concerns?: [...] arranged?: No ASSESSMENT / PLAN Assessment: The mergers and acquisitions manager met with Onesimo Walton to discuss his current hospitalization and home going needs. The patient was unaccompanied. The patient was a reliable historian. The role of mergers and acquisitions manager was reviewed. The patient reviewed his prior level of care and support system. The patient receives support from his , children and extended family. The patient described his living environment as a home with bedroom and bathroom on same floor with stairs to enter with rails. Housekeeping, grocery shopping, meal prep, and other household responsibilities have previously been completed by patient. mergers and acquisitions manager discussed the patient's potential needs at dismissal [...] chart and meeting with the patient, the mergers and acquisitions manager deemed the LACE+/readmission questions were not necessary. [...] will be provided by family--patient's . 3. mergers and acquisitions manager recommended a shower seat, grab bars and reaching out to family, friends, and neighbors for assistance. 4. mergers and acquisitions manager provided information regarding the dismissal process and the Senior Linkage Line ([place] Board on Aging) handout. 5. mergers and acquisitions manager placed or requested the following hospital-based consult orders and/or referrals:None. 6. mergers and acquisitions manager will continue to assess for homegoing needs with the interdisciplinary team. 7. mergers and acquisitions manager encouraged the patient to reach out with any questions/concerns. Care Management will continue to follow. Home oxygen will be provided by: Selected Continued Care - Admitted Since 05/08/2020 Durable Medical Equipment Coordination complete Service Provider Selected Services Address Phone Fax Patient Preferred [employer] Durable Medical Equipment [address] [facility] , [facility] [address] [phone] -- Contact: Intake Portable tanks for transport [...] follow. Signed by: Maite Kerns R.N. 05/10/2020 LTY HEAD documented in this encounter Nursing Notes Glenn Tavares R.R.T., L.R.T. - 05/10/2020 5:35 AM CST Nocturnal trend orders in place for patient. RN instructed to place the patient on room air at the beginning of the study and notify the monitoring lab when patient is ready for bed. RN instructed to chart that patient was placed on room air in [facility]. RN notified that lab will call when the patient is to be placed on oxygen if needed. Will follow up with RN around 0500. End of study note: RN stated patient required 2 L nasal cannula overnight for nocturnal oxygen study. Electronically signed by: Glenn Tavares R.R.T., L.RFeiTFei 05/10/20 5:35 AM FACULTY HEAD LTY HEAD Stef Thurman R.N., RenettaS.R.N. - 05/09/2020 10:44 [...] of 182/73 @2200. No new orders currently. LTY HEAD Glenn Tavares R.R.T., L.R.T. - 05/09/2020 10:16 PM CST Nocturnal trend orders in place for patient. RN instructed to place the patient on room air at the beginning of the study and notify the monitoring lab when patient is ready for bed. RN instructed to chart that patient was placed on room air in [facility]. RN notified that lab will call when the patient is to be placed on oxygen if needed. Will follow up with RN around 0500. Electronically signed by: Glenn Tavares R.R.T., L.R.T. 05/09/20 10:16 PM FACULTY HEAD LTY HEAD documented in this encounter Miscellaneous Notes Hospital Course - Niels Casey M.D. - 05/09/2020 1:15 PM CST Mr. Onesimo Walton is a 70 y.o. male who was transferred after admission to the hospital in [place] with an episode of an acute onset [...] specific appearance. ?? 3. Mediastinal lymphadenopathy, indeterminate. LTY HEAD documented in this encounter Plan of Treatment Not on filedocumented as of this encounter Procedures Procedure Name Priority Date/Time Associated Comments Diagnosis GLUCOSE POCT, B Routine 05/10/2020 11:52 Results for AM FACULTY HEAD this procedure are in the results section. GLUCOSE POCT, B Routine 05/10/2020 8:09 Results f or AM FACULTY HEAD this procedure are in the results section. GLUCOSE POCT, B Routine 05/10/2020 7:51 Results f or AM FACULTY HEAD this procedure are in the results section. CBC WITH Routine 05/10/2020 7:22 Results for DIFFERENTIAL, B AM FACULTY HEAD this procedu re are in the results section. BASIC METABOLIC Routine 05/10/2020 7:22 Results f or PANEL, S/P AM FACULTY HEAD this procedure are in the results section. INFLUENZA A/B AND Routine 05/09/2020 9:36 Results for RSV, PCR PM FACULTY HEAD this procedure are in the results section. GLUCOSE POCT, B Routine 05/09/2020 9:29 Results f or PM FACULTY HEAD this procedure are in the results section. GLUCOSE POCT, B Routine 05/09/2020 5:22 Results f or PM FACULTY HEAD this procedure are in the results section. GLUCOSE POCT, B Routine 05/09/2020 4:10 Results f or PM FACULTY HEAD this procedure are in the results section. GLUCOSE POCT, B Routine 05/09/2020 2:56 Results f or PM FACULTY HEAD this procedure are in the results section. NOCTURNAL OXYGEN Routine 05/09/2020 2:12 STUDY - RT PM FACULTY HEAD DX CHEST AP OR PA AND RAD - Routine 05/09/2020 2:01 Re sults for LATERAL 2 VIEWS (most inpatients PM FACULTY HEAD this pro cedure and all are in the outpatients) results section. GLUCOSE POCT, B Routine 05/09/2020 12:45 Results for PM FACULTY HEAD this procedure are in the results section. GLUCOSE POCT, B Routine 05/09/2020 12:09 Results for PM FACULTY HEAD this procedure are in the results section. GLUCOSE POCT, B Routine 05/09/2020 11:46 Results for AM FACULTY HEAD this procedure are in the results section. GLUCOSE POCT, B Routine 05/09/2020 11:30 Results for AM FACULTY HEAD this procedure are in the results section. RT PULSE OXIMETRY, Routine 05/09/2020 10:23 Resul ts for OVERNIGHT AM FACULTY HEAD this procedure are in the results section. ADULT OXYGEN THERAPY Routine 05/09/2020 8:01 AM FACULTY HEAD GLUCOSE POCT, B Routine 05/09/2020 7:25 Results f or AM FACULTY HEAD this procedure are in the results section. GLUCOSE POCT, B Routine 05/09/2020 7:06 Results f or AM FACULTY HEAD this procedure are in the results section. GLUCOSE POCT, B Routine 05/09/2020 6:36 Results f or AM FACULTY HEAD this procedure are in the results section. GLUCOSE POCT, B Routine 05/09/2020 6:18 Results f or AM FACULTY HEAD this procedure are in the results section. D-DIMER, P Routine 05/09/2020 4:54 Results for AM FACULTY HEAD this procedure are in the results section. CBC WITH Routine 05/09/2020 4:54 Results for DIFFERENTIAL, B AM FACULTY HEAD this procedu re are in the results section. C-REACTIVE PROTEIN Routine 05/09/2020 4:54 Result s for (CRP), S/P AM FACULTY HEAD this procedure are in the results section. FERRITIN, S Routine 05/09/2020 4:54 Results for AM FACULTY HEAD this procedure are in the results section. COMPREHENSIVE Routine 05/09/2020 4:54 Results for METABOLIC PANEL, S/P AM FACULTY HEAD this pr ocedure are in the results section. GLUCOSE POCT, B Routine 05/08/2020 10:13 Results for PM FACULTY HEAD this procedure are in the results section. ADULT OXYGEN THERAPY Routine 05/08/2020 8:01 PM FACULTY HEAD GLUCOSE POCT, B Routine 05/08/2020 6:33 Results f or PM FACULTY HEAD this procedure are in the results section. US KIDNEYS WITH RENAL RAD - Routine 05/08/2020 5:47 Re sults for ARTERY DOPPLER (most inpatients PM FACULTY HEAD this proc edure and all are in the outpatients) results section. (TTE) 2D ECHO DOPPLER Routine 05/08/2020 4:32 Res ults for COLOR PM FACULTY HEAD this procedure are in the results section. ALDOSTERONE, P Routine 05/08/2020 3:10 Results fo r PM FACULTY HEAD this procedure are in the results section. RENIN ACTIVITY, P Routine 05/08/2020 3:10 Results for PM FACULTY HEAD this procedure are in the results section. IFLU A, B, SARS Routine 05/08/2020 2:34 Results f or COV-2, PCR, RAPID,V PM FACULTY HEAD this pro cedure are in the results section. GLUCOSE POCT, B Routine 05/08/2020 1:01 Results f or PM FACULTY HEAD this procedure are in the results section. INTERPRETATION OF RAD - Routine 05/08/2020 12:45 Resul ts for OUTSIDE CT CHEST (most inpatients PM FACULTY HEAD this pr ocedure and all are in the outpatients) results section. CBC WITH Routine 05/08/2020 12:16 Results for DIFFERENTIAL, B PM FACULTY HEAD this procedu re are in the results section. BASIC METABOLIC Routine 05/08/2020 12:16 Results for PANEL, S/P PM FACULTY HEAD this procedure are in the results section. ADULT OXYGEN THERAPY Routine 05/08/2020 11:37 AM FACULTY HEAD ADULT OXYGEN THERAPY Routine 05/08/2020 11:37 AM FACULTY HEAD documented in this encounter Results (ABNORMAL) Glucose, POCT (05/10/2020 11:52 AM FACULTY HEAD) Analysis Performed At Patho logist Time Signature Glucose, POCT, 248 (H) 70 - 140 05/10/2020 [facility] B mg/dL 11:55 AM FACULTY HEAD Site Capillary 05/10/2020 [facility] 11:55 AM FACULTY HEAD Last Intake 3-4 hours 05/10/2020 [facility] 11:55 AM FACULTY HEAD Specimen Anatomical Collection Method Collection Time Receive d Time (Source) Location / / Volume Laterality Blood 05/10/2020 11:52 05/10/2020 AM FACULTY HEAD 11:56 AM FACULTY HEAD Unknown Provider LAB POCT ORDERABLES-MANUAL Performing Organization Address City/State/ZIP Code Phon e Number POC [facility] [address] [place] [address] [place] [address] [place] [facility] [address] Glucose, POCT (05/10/2020 8:09 AM FACULTY HEAD) Analysis Performed At Patho logist Time Signature Glucose, POCT, 85 70 - 140 05/10/2020 [facility] B mg/dL 8:12 AM FACULTY HEAD Site Capillary 05/10/2020 [facility] 8:12 AM FACULTY HEAD Last Intake <1 hour 05/10/2020 [facility] 8:12 AM FACULTY HEAD Specimen Anatomical Collection Method Collection Time Receive d Time (Source) Location / / Volume Laterality Blood 05/10/2020 8:09 AM 0 8:12 FACULTY HEAD AM FACULTY HEAD Unknown Provider LAB POCT ORDERABLES-MANUAL Performing Organization Address City/[facility] Phon e Number POC [facility] [address] [place] [address] [place] [address] [place] [facility] [address] [facility] (ABNORMAL) Glucose, POCT (05/10/2020 7:51 AM FACULTY HEAD) Analysis Performed At Patho logist Time Signature Glucose, POCT, 69 (L) 70 - 140 05/10/2020 [facility] B mg/dL 7:57 AM FACULTY HEAD Site Capillary 05/10/2020 [facility] 7:57 AM FACULTY HEAD Last Intake > 4 hours 05/10/2020 [facility] 7:57 AM FACULTY HEAD Specimen Anatomical Collection Method Collection Time Receive d Time (Source) Location / / Volume Laterality Blood 05/10/2020 7:51 AM 0 7:58 FACULTY HEAD AM FACULTY HEAD Unknown Provider LAB POCT ORDERABLES-MANUAL Performing Organization Address City/[facility] Code Phon e Number POC [facility] [address] [place] [address] [place] [address] [place] [facility] [address] (ABNORMAL) CBC with Differential, Blood (05/10/2020 7:22 AM FACULTY HEAD) Patholo gist Method Time Signature Hemoglobin 11.4 (L) 13.2 - 05/10/2020 DTL 16.6 g/dL 8:09 AM FACULTY HEAD Hematocrit 35.2 (L) 38.3 - 05/10/2020 DTL 48.6 % 8:09 AM FACULTY HEAD Erythrocytes 3.74 (L) 4.35 - 05/10/2020 DTL 5.65 8:09 AM FACULTY HEAD x10(12)/L MCV 94.1 78.2 - 05/10/2020 DTL 97.9 fL 8:09 AM FACULTY HEAD RBC Distrib Width 15.0 (H) 11.8 - 05/10/2020 DTL 14.5 % 8:09 AM FACULTY HEAD Platelet Count 379 (H) 135 - 317 05/10/2020 DTL x10(9)/L 8:09 AM FACULTY HEAD Leukocytes 13.0 (H) 3.4 - 9.6 05/10/2020 DTL x10(9)/L 8:09 AM FACULTY HEAD Neutrophils 9.44 (H) 1.56 - 05/10/2020 DTL 6.45 8:09 AM FACULTY HEAD x10(9)/L Lymphocytes 1.89 0.95 - 05/10/2020 DTL 3.07 8:09 AM FACULTY HEAD x10(9)/L Monocytes 1.11 (H) 0.26 - 05/10/2020 DTL 0.81 8:09 AM FACULTY HEAD x10(9)/L Eosinophils 0.50 (H) 0.03 - 05/10/2020 DTL 0.48 8:09 AM FACULTY HEAD x10(9)/L Basophils 0.05 0.01 - 05/10/2020 DTL 0.08 8:09 AM FACULTY HEAD x10(9)/L Specimen Anatomical Collection Method Collection Time Receive d Time (Source) Location / / Volume Laterality Blood (Blood, 05/10/2020 7:22 AM 05/10/20 20 7:58 Venous) FACULTY HEAD AM FACULTY HEAD Niels Casey M.D. LAB BLOOD ADD-ON Performing Organization Address City/State/ZIP Code Phon e Number [facility] - [address] [place], [place] [address] [facility] [place] [address] [facility] [address] (ABNORMAL) Basic Metabolic Panel (05/10/2020 7:22 AM FACULTY HEAD) Analysis Performed At Patho logist Time Signature Potassium, S 4.1 3.6 - 5.2 05/10/2020 DTL mmol/L 8:37 AM FACULTY HEAD Sodium, S 142 135 - 145 05/10/2020 DTL mmol/L 8:37 AM FACULTY HEAD Chloride, S 104 98 - 107 05/10/2020 DTL mmol/L 8:37 AM FACULTY HEAD Bicarbonate, S 25 22 - 29 05/10/2020 DTL mmol/L 8:37 AM FACULTY HEAD Anion Gap 13 7 - 15 05/10/2020 DTL 8:37 AM FACULTY HEAD BUN (Blood Urea 28 (H) 8 - 24 05/10/2020 DTL Nitrogen), S mg/dL 8:37 AM FACULTY HEAD Creatinine 2.34 (H) 0.74 - 05/10/2020 DTL 1.35 mg/dL 8:37 AM FACULTY HEAD eGFR-Non 28 (L) >=60 05/10/2020 DTL Black/ mL/min/BSA 8:37 AM FACULTY HEAD Hong [place]er Comment: ----ADDITIONAL INFORMATION---- Estimated GFR calculated using the 2009 CKD_EPI creatinine equation. eGFR-Black/ 32 (L) >=60 mL/min/BSA 2019 8:37 AM FACULTY HEAD DTL Comment: ----ADDITIONAL INFORMATION---- Estimated GFR calculated using the 2009 CKD_EPI creatinine equation. Calcium, Total, S 8.2 (L) 8.8 - 10.2 mg/dL 05/10/2020 8:37 AM FACULTY HEAD DTL Glucose, S 60 (L) 70 - 140 mg/dL 05/10/2020 8:37 AM FACULTY HEAD D TL Specimen Anatomical Collection Method Collection Time Receive d Time (Source) Location / / Volume Laterality Blood (Blood, 05/10/2020 7:22 AM 05/10/20 20 7:59 Venous) FACULTY HEAD AM FACULTY HEAD Niels Casey M.D. LAB BLOOD ADD-ON Performing Organization Address City/State/ZIP Code Phon e Number [facility] - [address] [place], [place] [address] [facility] [place] [address] [facility] [address] Influenza A/B and Respiratory Syncytial Virus, PCR (05/09/2020 9:36 PM FACULTY HEAD) Component Value Ref Range Test Analysis Performed Pathologis t Method Time At Signature Specimen NASOPHARYNGEAL 05/10/2020 DTL Source SWAB 12:17 AM FACULTY HEAD Influenza A, Negative Negative 05/10/2020 DTL PCR 12:17 AM FACULTY HEAD Influenza B, Negative Negative 05/10/2020 DTL PCR 12:17 AM FACULTY HEAD Respiratory Negative Negative 05/10/2020 DTL Syncytial 12:17 AM Virus, PCR FACULTY HEAD Comment: ----ADDITIONAL INFORMATION---- This assay is performed using the FDA-cl eared Simplexa Flu A/B and RSV Direct ([employer] For testing p erformed at [facility] in [place], [place], performance characteristics for samp les submitted in phosphate buffered saline were determined by [facility] in a manner consistent with CLIA requirements. Specimen Anatomical Collection Method Collection Time Receive d Time (Source) Location / / Volume Laterality Varies 05/09/2020 9:36 PM 0 9:36 (Nasopharynx) FACULTY HEAD PM FACULTY HEAD Bebeto Ayala M.D., M.S. LAB MICROBIOLOGY - GENERAL ORDERABLES Performing Organization Address [facility] Phon e Number [facility] - [address] [facility] (ABNORMAL) Glucose, POCT (05/09/2020 9:29 PM FACULTY HEAD) Analysis Performed At [facility] Signature Glucose, POCT, 222 (H) 70 - 140 05/09/2020 [facility] B mg/dL 9:32 PM FACULTY HEAD Site Capillary 05/09/2020 [facility] 9:32 PM FACULTY HEAD Last Intake > 4 hours 05/09/2020 [facility] 9:32 PM FACULTY HEAD Specimen Anatomical Collection Method Collection Time Receive d Time (Source) Location / / Volume Laterality Blood 05/09/2020 9:29 PM 0 9:33 FACULTY HEAD PM FACULTY HEAD Unknown Provider LAB POCT ORDERABLES-MANUAL Performing Organization Address City/[facility] Phon e Number [facility] [address] [place] [phone] [place] [address] (ABNORMAL) Glucose, POCT (05/09/2020 5:22 PM FACULTY HEAD) [facility] Signature Glucose, POCT, 176 (H) 70 - 140 05/09/2020 [facility] B mg/dL 5:29 PM FACULTY HEAD Site Capillary 05/09/2020 [facility] 5:29 PM FACULTY HEAD Last Intake > 4 hours 05/09/2020 [facility] 5:29 PM FACULTY HEAD Specimen Anatomical Collection Method Collection Time Receive d Time (Source) Location / / Volume Laterality Blood 05/09/2020 5:22 PM 0 5:29 FACULTY HEAD PM FACULTY HEAD Unknown Provider LAB POCT ORDERABLES-MANUAL Performing Organization Address City/[facility]/ZIP Code Phon e Number POC [facility] [address] [place] [address] [place] [address] [place] [facility] [address] [facility] (ABNORMAL) Glucose, POCT (05/09/2020 4:10 PM FACULTY HEAD) Analysis Performed At Patho logist Time Signature Glucose, POCT, 150 (H) 70 - 140 05/09/2020 [facility] B mg/dL 4:12 PM FACULTY HEAD Site Capillary 05/09/2020 [facility] 4:12 PM FACULTY HEAD Last Intake 2-3 hours 05/09/2020 [facility] 4:12 PM FACULTY HEAD Specimen Anatomical Collection Method Collection Time Receive d Time (Source) Location / / Volume Laterality Blood 05/09/2020 4:10 PM 0 4:13 FACULTY HEAD PM FACULTY HEAD Unknown Provider LAB POCT ORDERABLES-MANUAL Performing Organization Address City/[facility] Phon e Number POC [facility] [address] [place] [address] [place] [address] [place] [facility] 200 [facility] (ABNORMAL) Glucose, POCT (05/09/2020 2:56 PM FACULTY HEAD) Analysis Performed At Patho logist Time Signature Glucose, POCT, 146 (H) 70 - 140 05/09/2020 [facility] B mg/dL 3:04 PM FACULTY HEAD Site Capillary 05/09/2020 [facility] 3:04 PM FACULTY HEAD Last Intake 1-2 hours 05/09/2020 [facility] 3:04 PM FACULTY HEAD Specimen Anatomical Collection Method Collection Time Receive d Time (Source) Location / / Volume Laterality Blood 05/09/2020 2:56 PM 0 3:04 FACULTY HEAD PM FACULTY HEAD Unknown Provider LAB POCT ORDERABLES-MANUAL Performing Organization Address City/[facility] Code Phon e Number POC [facility] [address] [place] [address] [place] [id number] [place] [facility] 200 [facility] DX Chest AP or PA and Lateral 2 Views (05/09/2020 2:01 PM FACULTY HEAD) Anatomical Region Laterality Modality Chest, Thoracic RST LOS, Thoracic ARZ LOS, Thoracic N/A Digital Radiography FLA LOS Specimen (Source) Anatomical Collection Method Collection Time Re ceived Time Location / / Volume Laterality 05/09/2020 2:04 PM [facility] HEAD Impressions 05/09/2020 2:07 PM [facility]AC[facility] HEAD Since 05/07/2020, interval decrease in size of small bilateral pleural effusions. No focal consolidatio n. No pneumothorax. Narrative 05/09/2020 2:07 PM [facility] HEAD EXAM: ??DX CHEST AP OR PA AND [...] PROCE DURES Glucose, POCT (05/09/2020 12:45 PM FAC[facility]Y HEAD) Analysis Performed At Patho logist Time Signature Glucose, POCT, 136 70 - 140 05/09/2020 [facility] B mg/dL 12:49 PM FAC[facility]Y HEAD Site Capillary 05/09/2020 [facility] 12:49 PM [facility]AC[facility]Y HEAD Last Intake 1-2 hours 05/09/2020 [facility] 12:49 PM [facility] HEAD Specimen Anatomical Collection Method Collection Time Receive d Time (Source) Location / / Volume Laterality Blood 05/09/2020 12:45 05/09/2020 PM FAC[facility]Y HEAD 12:50 PM FAC[facility]Y HEAD Unknown Provider LAB POCT ORDERABLES-MANUAL Performing Organization Address City/State/ZIP Code Phon e Number POC [facility] LAB SERVICES [address] [place] [address] [place] [address] [place] 200 [facility] Glucose, POCT (05/09/2020 12:09 PM FACULTY HEAD) Analysis Performed At Patho logist Time Signature Glucose, POCT, 85 70 - 140 05/09/2020 [facility] B mg/dL 12:49 PM FAC[facility]Y HEAD Site Capillary 05/09/2020 P[facility] 12:49 PM FAC[facility]Y HEAD Specimen Anatomical Collection Method Collection Time Receive d Time (Source) Location / / Volume Laterality Blood 05/09/2020 12:09 05/09/2020 PM FAC[facility]Y HEAD 12:49 PM FAC[facility]Y HEAD Unknown Provider LAB POCT ORDERABLES-MANUAL Performing Organization Address City/[facility] Phon e Number POC [facility] LAB SERVICES [address] [place] [address] [place] [address] [place] [facility] [address] [facility] (ABNORMAL) Glucose, POCT (05/09/2020 11:46 AM FAC[facility]Y HEAD) Analysis Performed At Patho logist Time Signature Glucose, POCT, 59 (L) 70 - 140 05/09/2020 [facility]CL[facility] B mg/dL 12:49 PM FAC[facility]Y HEAD Site Capillary 05/09/2020 PCLX 12:49 PM FAC[facility]Y HEAD Specimen Anatomical Collection Method Collection Time Receive d Time (Source) Location / / Volume Laterality Blood 05/09/2020 11:46 05/09/2020 AM FAC[facility]Y HEAD 12:49 PM FAC[facility]Y HEAD Unknown Provider LAB POCT ORDERABLES-MANUAL Performing Organization Address City/[facility] Phon e Number POC [facility] LAB SERVICES [address] [place] [address] [place] [address] [place] [address] (ABNORMAL) Glucose, POCT (05/09/2020 11:30 AM FAC[facility]Y HEAD) Analysis Performed At Patho logist Time Signature Glucose, POCT, 29 (L) 70 - 140 05/09/2020 [facility] B mg/dL 12:49 PM FAC[facility]Y HEAD Site Capillary 05/09/2020 [facility] 12:49 PM FAC[facility]Y HEAD Last Intake 3-4 hours 05/09/2020 [facility] 12:49 PM FAC[facility]Y HEAD Specimen Anatomical Collection Method Collection Time Receive d Time (Source) Location / / Volume Laterality Blood 05/09/2020 11:30 05/09/2020 AM FAC[facility]Y HEAD 12:49 PM FAC[facility]Y HEAD Unknown Provider LAB POCT ORDERABLES-MANUAL Performing Organization Address City/State/[facility] Phon e Number POC [facility] LAB SERVICES [address] [place] [address] [place] [address] [place] [facility] [address] RT Pulse Oximetry, Overnight (05/09/2020 10:23 AM FAC[facility]Y HEAD) Specimen (Source) Anatomical Location Collection Method / Collectio n Time Received Time / Laterality Volume 05/08/2020 Narrative [place] [facility] - 05/12/2020 12:[address] This result has an attachment that is no t available. See PDF report for results Procedure Note Jorge Carrillo M.B.B.S. - 05/12/2020 See PDF report for results Niels Casey M.D. [facility] ORDERABLES Performing Organization Address City/State/ZIP Code Phon e Number [place] [facility] Glucose, POCT (05/09/2020 7:25 AM F[facility] HEAD) Analysis Performed At Patho logist Time Signature Glucose, POCT, 131 70 - 140 05/09/2020 PCL[facility] B mg/dL 7:48 AM FAC[facility] HEAD Site Capillary 05/09/2020 P[facility] 7:48 AM [facility]AC[facility] HEAD Specimen Anatomical Collection Method Collection Time Receive d Time (Source) Location / / Volume Laterality Blood 05/09/2020 7:25 AM 0 7:49 FAC[facility]Y HEAD AM FAC[facility]Y HEAD Unknown Provider LAB POCT ORDERABLES-MANUAL Performing Organization Address City/[facility] Phon e Number POC [facility] LAB SERVICES [address] [place] [address] [place], [place] [address] [place] [address] Glucose, POCT (05/09/2020 7:06 AM FAC[facility]Y HEAD) Analysis Performed At Patho logist Time Signature Glucose, POCT, 125 70 - 140 05/09/2020 [facility]CL[facility] B mg/dL 7:09 AM FAC[facility] HEAD Site Capillary 05/09/2020 PCLX 7:09 AM FAC[facility] HEAD Specimen Anatomical Collection Method Collection Time Receive d Time (Source) Location / / Volume Laterality Blood 05/09/2020 7:06 AM 0 7:09 FAC[facility]Y HEAD AM FAC[facility]Y HEAD Unknown Provider LAB POCT ORDERABLES-MANUAL Performing Organization Address City/[facility]/ZIP [facility] Phon e Number POC [facility] LAB SERVICES [address] [place] [address] [place] [address] [place] [address] (ABNORMAL) Glucose, POCT (05/09/2020 6:36 AM FAC[facility]Y HEAD) Analysis Performed At Patho logist Time Signature Glucose, POCT, 56 (L) 70 - 140 05/09/2020 PCLX B mg/dL 6:38 AM [facility]AC[facility] HEAD Site Capillary 05/09/2020 PCL[facility] 6:38 AM [facility]AC[facility] HEAD Last Intake <1 hour 05/09/2020 PCLX 6:38 AM FAC[facility] HEAD Specimen Anatomical Collection Method Collection Time Receive d Time (Source) Location / / Volume Laterality Blood 05/09/2020 6:36 AM 0 6:38 FAC[facility]Y HEAD AM FAC[facility] HEAD Unknown Provider LAB POCT ORDERABLES-MANUAL Performing Organization Address City/[facility] Phon e Number POC [facility] LAB SERVICES [address] [place] [address] [place], [place] [address] [place] [address] POC 200 [facility] (ABNORMAL) Glucose, POCT (05/09/2020 6:18 AM FAC[facility] HEAD) Analysis Performed At Patho logist Time Signature Glucose, POCT, 49 (L) 70 - 140 05/09/2020 PCLX B mg/dL 6:20 AM FAC[facility] HEAD Site Capillary 05/09/2020 PCLX 6:20 AM FAC[facility]Y HEAD Last Intake > 4 hours 05/09/2020 PCL[facility] 6:20 AM FAC[facility] HEAD Specimen Anatomical Collection Method Collection Time Receive d Time (Source) Location / / Volume Laterality Blood 05/09/2020 6:18 AM 0 6:20 FAC[facility]Y HEAD AM FAC[facility] HEAD Unknown Provider LAB POCT ORDERABLES-MANUAL Performing Organization Address City/[facility] Phon e Number POC [facility] LAB SERVICES [address] [place] [address] [place], [place] [address] [place] [address] POC 200 [facility] (ABNORMAL) Comprehensive Metabolic Panel (05/09/2020 4:54 AM FAC[facility]Y HEAD) Analysis Performed At Patho logist Time Signature Potassium, S 4.0 3.6 - 5.2 05/09/2020 DTL mmol/L 5:45 AM [facility]AC[facility] HEAD Sodium, S 142 135 - 145 05/09/2020 DTL mmol/L 5:45 AM [facility]AC[facility] HEAD Chloride, S 106 98 - 107 05/09/2020 DTL mmol/L 5:45 AM [facility]AC[facility] HEAD Bicarbonate, S 24 22 - 29 05/09/2020 DTL mmol/L 5:45 AM [facility]AC[facility] HEAD Anion Gap 12 7 - 15 05/09/2020 DTL 5:45 AM [facility]AC[facility] HEAD BUN (Blood Urea 29 (H) 8 - 24 05/09/2020 DTL Nitrogen), S mg/dL 5:45 AM [facility]AC[facility] HEAD Creatinine 2.35 (H) 0.74 - 05/09/2020 DTL 1.35 mg/dL 5:45 AM [facility] HEAD eGFR-Non 27 (L) >=60 05/09/2020 DTL Black/ mL/min/BSA 5:45 AM FACULTY HEAD [place]er Comment: ----ADDITIONAL INFORMATION---- Estimated GFR calculated using the 2009 CKD_EPI creatinine equation. eGFR-Black/ 32 (L) >=60 mL/min/BSA 2019 5:45 AM FAC[facility]Y HEAD DTL Comment: ----ADDITIONAL INFORMATION---- Estimated GFR calculated using the 2009 CKD_EPI creatinine equation. Calcium, Total, S 7.9 (L) 8.8 - 10.2 mg/dL 05/09/2020 5:45 AM FAC[facility] HEAD DTL Glucose, S 47 (CL) 70 - 140 mg/dL 05/09/2020 5:45 AM FAC[facility]Y HEAD D TL Protein, Total, S 5.9 (L) 6.3 - 7.9 g/dL 05/09/2020 5:45 A M [facility]AC[facility] HEAD DTL Albumin, S 3.0 (L) 3.5 - 5.0 g/dL 05/09/2020 5:45 AM FAC[facility]Y HEAD D TL Aspartate Aminotransferase 26 8 - 48 U/L 05/09/2020 5 :45 AM FAC[facility]Y HEAD DTL (AST), S Alkaline Phosphatase, S 107 40 - 129 U/L 05/09/2020 5: 45 AM FAC[facility]Y HEAD DTL Alanine Aminotransferase 13 7 - 55 U/L 05/09/2020 5:4 5 AM FAC[facility]Y HEAD DTL (ALT), S Bilirubin, Total, S <0.2 <=1.2 mg/dL 05/09/2020 5:45 AM FAC[facility] HEAD DTL Specimen Anatomical Collection Method Collection Time Receive d Time (Source) Location / / Volume Laterality Blood (Blood, 05/09/2020 4:54 AM 05/09/20 5:14 Venous) FACULTY HEAD AM FAC[facility] HEAD Niels Casey M.D. LAB BLOOD ADD-ON Performing Organization Address City/State/ZIP Code Phon e Number [facility] - [address] [place], [place] [address] [facility] [place] [address] Laboratories-[facility] [address] (ABNORMAL) CBC with Differential, Blood (05/09/2020 4:54 AM FACULTY HEAD) [facility] gist Method Time Signature Hemoglobin 10.5 (L) 13.2 - 05/09/2020 DTL 16.6 g/dL 5:28 AM FAC[facility]Y HEAD Hematocrit 32.7 (L) 38.3 - 05/09/2020 DTL 48.6 % 5:28 AM FAC[facility]Y HEAD Erythrocytes 3.51 (L) 4.35 - 05/09/2020 DTL 5.65 5:28 AM FACULTY HEAD x10(12)/L MCV 93.2 78.2 - 05/09/2020 DTL 97.9 fL 5:28 AM FAC[facility]Y HEAD RBC Distrib Width 14.7 (H) 11.8 - 05/09/2020 DTL 14.5 % 5:28 AM FAC[facility]Y HEAD Platelet Count 398 (H) 135 - 317 05/09/2020 DTL x10(9)/L 5:28 AM FAC[facility]Y HEAD Leukocytes 14.9 (H) 3.4 - 9.6 05/09/2020 DTL x10(9)/L 5:28 AM FAC[facility]Y HEAD Neutrophils 10.58 (H) 1.56 - 05/09/2020 DTL 6.45 5:28 AM FACULTY HEAD x10(9)/L Lymphocytes 2.96 0.95 - 05/09/2020 DTL 3.07 5:28 AM FACULTY HEAD x10(9)/L Monocytes 1.21 (H) 0.26 - 05/09/2020 DTL 0.81 5:28 AM FACULTY HEAD x10(9)/L Eosinophils 0.15 0.03 - 05/09/2020 DTL 0.48 5:28 AM FAC[facility]Y HEAD x10(9)/L Basophils 0.04 0.01 - 05/09/2020 DTL 0.08 5:28 AM FAC[facility]Y HEAD x10(9)/L Specimen Anatomical Collection Method Collection Time Receive d Time (Source) Location / / Volume Laterality Blood (Blood, 05/09/2020 4:54 AM 05/09/20 20 5:15 Venous) FACULTY HEAD AM FACULTY HEAD Niels Casey M.D. LAB BLOOD ADD-ON Performing Organization Address City/State/ZIP Code Phon e Number [facility] - [address] [place], [place] [address] [facility] [place] [address] [facility] [address] (ABNORMAL) CRP (C-Reactive Protein) (05/09/2020 4:54 AM FAC[facility]Y HEAD) athologist [facility] C-Reactive 43.8 (H) <=8.0 mg/L 05/09/2020 DTL Protein (CRP), 5:45 AM FAC[facility]Y HEAD S Specimen Anatomical Collection Method Collection Time Receive d Time (Source) Location / / Volume Laterality Blood (Blood, 05/09/2020 4:54 AM 05/09/20 20 5:14 Venous) FACULTY HEAD AM FAC[facility]Y HEAD Bebeto Ayala M.D., M.S. LAB BLOOD ADD-ON Performing Organization Address City/[facility] Phon e Number [facility] - [address] [place] [address] Laboratories-[address] Ferritin (05/09/2020 4:54 AM FAC[facility]Y HEAD) athologist [facility] Ferritin, S 89 24 - 336 05/09/2020 DTL mcg/L 6:13 AM FAC[facility]Y HEAD Specimen Anatomical Collection Method Collection Time Receive d Time (Source) Location / / Volume Laterality Blood (Blood, 05/09/2020 4:54 AM 05/09/20 20 5:14 Venous) FACULTY HEAD AM FAC[facility]Y HEAD Bebeto Ayala M.D., M.S. LAB BLOOD ADD-ON Performing Organization Address City/[facility] Phon e Number [facility] - [id number] [place] [address] (ABNORMAL) D-Dimer (05/09/2020 4:54 AM FAC[facility]Y HEAD) athologist [facility] D-Dimer, P 1257 (H) <=500 ng/mL 05/09/2020 DTL FEU 5:53 AM FAC[facility] HEAD Comment: D-dimer concentrations increase with age . [...] 05/09/2020 4:54 AM 05/09/20 20 5:14 Venous) FAC[facility]Y HEAD AM FAC[facility]Y HEAD Bebeto Ayala M.D., M.S. LAB BLOOD ADD-ON Performing Organization Address City/[facility] Phon e Number [facility] - [address] [place], [place] [address] [facility] [place] [address] [facility] [address] [facility] Glucose, POCT (05/08/2020 10:13 PM FACULTY HEAD) Analysis Performed At Patho logist Time Signature Glucose, POCT, 90 70 - 140 05/08/2020 PCLX B mg/dL 10:16 PM FAC[facility]Y HEAD Site Capillary 05/08/2020 [facility] 10:16 PM FAC[facility]Y HEAD Last Intake 3-4 hours 05/08/2020 [facility] 10:16 PM FAC[facility]Y HEAD Specimen Anatomical Collection Method Collection Time Receive d Time (Source) Location / / Volume Laterality Blood 05/08/2020 10:13 05/08/2020 PM FACULTY HEAD 10:16 PM FAC[facility]Y HEAD Unknown Provider LAB POCT ORDERABLES-MANUAL Performing Organization Address [facility] Phon e Number POC [facility] [address] [place] [address] [place] [address] [place] [facility] [address] [facility] Glucose, POCT (05/08/2020 6:33 PM FACULTY HEAD) P athologist Signature Glucose, POCT, 94 70 - 140 05/08/2020 PCLX B mg/dL 6:45 PM FAC[facility]Y HEAD Specimen Anatomical Collection Method Collection Time Receive d Time (Source) Location / / Volume Laterality Blood 05/08/2020 6:33 PM 0 6:46 FACULTY HEAD PM FACULTY HEAD Unknown Provider LAB POCT ORDERABLES-MANUAL Performing Organization Address City/[facility] Phon e Number POC [facility] SERVICES [address] [place] [address] [place] [address] [facility] 200 [facility] US Kidneys with Renal Artery Doppler (05/08/2020 5:47 PM FACULTY HEAD) Anatomical Region Laterality Modality Abdomen, Renal, Ultrasound RST LOS, Ultrasound ARZ LOS, N/A Ultrasound Ultrasound FLA LOS, Procedural Specimen (Source) Anatomical Collection Method Collection Time Re ceived Time Location / / Volume Laterality 05/08/2020 5:46 PM FAC[facility]Y HEAD Impressions 05/09/2020 7:51 AM FACULTY HEAD 1. Negative for renal artery stenosis where seen. Note that the bilateral renal arteries were segmentally visualized due to obscuring bowel gas. 2. Increased echogenicity and elevated r esistive indices in the bilateral kidneys, which can be seen with chronic renal parenchymal disease. Narrative 05/09/2020 7:51 AM FACULTY HEAD EXAM: US KIDNEYS WITH RENAL ARTERY DOPPLER [...] 2D ECHO DOPPLER COLOR (05/08/2020 4:32 PM FACULTY HEAD) [facility] Method Time Signature Ejection Fraction 61 MC [...] / / Volume Laterality 05/08/2020 2:52 PM FACULTY HEAD Impressions 05/08/2020 4:44 PM FACULTY HEAD Echocardiogram performed per COVID-19 protocol (COVID results [...] effusion. For the complete report, see the [employer] Documents. Narrative 05/08/2020 4:44 PM FACULTY HEAD For the complete report, see the [employer] Documents. Final Impressions 1. Normal left ventricular [...] 05/08/2020 For the complete report, see the [employer] Documents. Final Impressions 1. Normal left ventricular [...] ECHO PROCEDURES Renin Activity (05/08/2020 3:10 PM FACULTY HEAD) athologist Signature Renin Activity, <0.6 ng/mL/h 05/12/2020 [facility] P 2:55 PM FACULTY HEAD Comment: ----REFERENCE VALUE---- (Peripheral vein specimen) Na-deplete, upright: ??Mean: 5.9 ??Range: 2.9-10.8 Na-replete, upright: ??Mean: 1.0 ??Range: < or =0.6-3.0 ----ADDITIONAL INFORMATION---- Testing performed by Liquid Chromatograp hy-Tandem Mass Spectrometry (LC-MS/MS). This test was developed and its performa nce characteristics determined by [facility] in a manner consistent with CLIA requirements. This test has not been cleared or approved by the [place] and Drug Administration. Specimen Anatomical Collection Method Collection Time Receive d Time (Source) Location / / Volume Laterality Blood (Blood, 05/08/2020 3:10 PM 05/10/20 20 Venous) FACULTY HEAD 10:34 AM FACULTY HEAD Niels Casey M.D. LAB BLOOD NON ADD-ON Performing Organization Address City/State/ZIP Code Phon e Number [facility] [address] [place] [address] [place] [address] CENTER [facility] [place] [address] Laboratory Medicine and Pathology [address] RAIN Aldosterone (05/08/2020 3:10 PM FACULTY HEAD) P athologist Signature Aldosterone, P 4.3 <=21 ng/dL 05/13/2020 [facility] 9:34 AM FACULTY HEAD Comment: ----ADDITIONAL INFORMATION---- Reference range for patients 11 years an d older is based on upright A.M. collection from subjects without sodium restrictions. This test was developed and its performa nce characteristics determined by [facility] in a manner consistent with CLIA requirements. This test has not been cleared or approved by the [place] and Drug Administration. Specimen Anatomical Collection Method Collection Time Receive d Time (Source) Location / / Volume Laterality Blood (Blood, 05/08/2020 3:10 PM 05/10/20 20 Venous) FACULTY HEAD 12:29 PM FACULTY HEAD Niels Casey M.D. LAB BLOOD NON ADD-ON Performing Organization Address City/State/ZIP Code Phon e Number [facility] [address] [place] [address] [address] [place] [address] Laboratory Medicine and Pathology [address] RAIN Influenza A/B, SARS CoV-2, PCR, Rapid, Varies (05/08/2020 2:34 PM FACULTY HEAD) athologist Signature Influenza A, CANCELED 06/09/2020 [facility] PCR, Rapid, V 12:21 PM FACULTY HEAD Comment: Result canceled by the ancillar y. Influenza B, PCR, Rapid, V CANCELED 06/09/2020 12 :21 PM FACULTY HEAD [facility] Comment: Result canceled by the ancillar y. SARS CoV-2, PCR, Rapid, V CANCELED Undetected 06/09/2020 12 :21 PM FACULTY HEAD [facility] Comment: REVISED RESULTS ----ADDITIONAL INFORMATION---- Testing was performed using the [employer] RS-CoV-2 and Influenza A/B Reagent assay from [employer], which has received Emergency Use Authori zation(EUA) by the U.S. Food and Drug Administration . Fact sheets for this Emergency Use Autho rization (EUA) assay can be found at the following link s: For Healthcare Providers: https://www.fda.gov/media/415128/downloa d For Patients: https://www.fda.gov/media/975611/downloa d ----PREVIOUSLY REPORTED ---- Undetected, Flagged as: Normal (Reported 05/08/2020 15:03) Infl A/B, SARS CoV-2, PCR, Source CANCELED 2020 12:21 PM FACULTY HEAD [facility] Comment: REVISED RESULTS ----PREVIOUSLY REPORTED ---- Swab, Nasopharynx, Flagged as: Normal (Reported 05/08/2020 14:34) Specimen Anatomical Collection Method Collection Time Receive d Time (Source) Location / / Volume Laterality Varies 05/08/2020 2:34 PM 0 2:34 FACULTY HEAD PM FACULTY HEAD Narrative [facility] - 06/09/2020 12:21 PM FACULTY HEAD Influ A/B, SARS CoV-2, PCR, Rapid,V was cancelled on 06/09/2020 at 12:21; [email or web address] Bebeto Ayala M.D., M.S. LAB MICROBIOLOGY - GENERAL ORDERABLES Performing Organization Address City/[facility] Phon e Number [facility] - [address] [place], [place] [address] [place] [address] [facility] [address] [facility] (ABNORMAL) Glucose, POCT (05/08/2020 1:01 PM FACULTY HEAD) Analysis Performed At Patho logist Time Signature Glucose, POCT, 252 (H) 70 - 140 05/08/2020 PCLX B mg/dL 1:18 PM FACULTY HEAD Site Capillary 05/08/2020 PCLX 1:18 PM FACULTY HEAD Last Intake > 4 hours 05/08/2020 PCLX 1:18 PM FACULTY HEAD Specimen Anatomical Collection Method Collection Time Receive d Time (Source) Location / / Volume Laterality Blood 05/08/2020 1:01 PM 0 1:18 FACULTY HEAD PM FACULTY HEAD Unknown Provider LAB POCT ORDERABLES-MANUAL Performing Organization Address City/State/[facility] Code Phon e Number POC [facility] [address] [place] [address] [place] [address] [place] [facility] [address] [facility] Interpretation of Outside CT Chest (05/08/2020 12:45 PM FACULTY HEAD) Anatomical Region Laterality Modality Chest, Thoracic RST LOS, Thoracic ARZ LOS, Thoracic N/A Computed Tomography FLA LOS, Other, Body Specimen (Source) Anatomical Collection Method Collection Time Re ceived Time Location / / Volume Laterality 05/08/2020 1:05 PM FACULTY HEAD Impressions 05/08/2020 1:13 PM FACULTY HEAD 1. Findings consistent with volume overload/congestive failure. 2. Multifocal groundglass opacities most notable in the right apex could also be related to edema, but the distribution i s not typical for that. These are most suggestive of a superimposed infectious/ inflammatory process. COVID-19 pneumonia is possible, but this is not a specific appearance. 3. Mediastinal lymphadenopathy, indeterm inate. Narrative 05/08/2020 1:13 PM FACULTY HEAD EXAM: ??INTERPRETATION OF OUTSIDE CT CHEST. Outside [...] CBC with Differential, Blood (05/08/2020 12:16 PM FACULTY HEAD) [facility] Method Time Signature Hemoglobin 10.3 (L) 13.2 - 05/08/2020 DTL 16.6 g/dL 12:42 PM FACULTY HEAD Hematocrit 31.9 (L) 38.3 - 05/08/2020 DTL 48.6 % 12:42 PM FACULTY HEAD Erythrocytes 3.40 (L) 4.35 - 05/08/2020 DTL 5.65 12:42 PM FACULTY HEAD x10(12)/L MCV 93.8 78.2 - 05/08/2020 DTL 97.9 fL 12:42 PM FACULTY HEAD RBC Distrib Width 14.5 11.8 - 05/08/2020 DTL 14.5 % 12:42 PM FACULTY HEAD Platelet Count 363 (H) 135 - 317 05/08/2020 DTL x10(9)/L 12:42 PM FACULTY HEAD Leukocytes 11.4 (H) 3.4 - 9.6 05/08/2020 DTL x10(9)/L 12:42 PM FACULTY HEAD Neutrophils 10.47 (H) 1.56 - 05/08/2020 DTL 6.45 12:42 PM FACULTY HEAD x10(9)/L Lymphocytes 0.66 (L) 0.95 - 05/08/2020 DTL 3.07 12:42 PM FACULTY HEAD x10(9)/L Monocytes 0.21 (L) 0.26 - 05/08/2020 DTL 0.81 12:42 PM FACULTY HEAD x10(9)/L Eosinophils <0.03 0.03 - 05/08/2020 DTL 0.48 12:42 PM FACULTY HEAD x10(9)/L Basophils <0.03 0.01 - 05/08/2020 DTL 0.08 12:42 PM FACULTY HEAD x10(9)/L Specimen Anatomical Collection Method Collection Time Receive d Time (Source) Location / / Volume Laterality Blood (Blood, 05/08/2020 12:16 05/08/2020 Venous) PM FACULTY HEAD 12:34 PM FACULTY HEAD Bebeto Ayala M.D., M.S. LAB BLOOD ADD-ON Performing Organization Address City/State/ZIP Code Phon e Number [facility] - [address] [place], [place] [address] [facility] [place] [address] [facility] [address] (ABNORMAL) Basic Metabolic Panel (05/08/2020 12:16 PM FACULTY HEAD) Analysis Performed At Patho logist Time Signature Potassium, S 4.5 3.6 - 5.2 05/08/2020 DTL mmol/L 1:00 PM FACULTY HEAD Sodium, S 138 135 - 145 05/08/2020 DTL mmol/L 1:00 PM FACULTY HEAD Chloride, S 103 98 - 107 05/08/2020 DTL mmol/L 1:00 PM FACULTY HEAD Bicarbonate, S 22 22 - 29 05/08/2020 DTL mmol/L 1:00 PM FACULTY HEAD Anion Gap 13 7 - 15 05/08/2020 DTL 1:00 PM FACULTY HEAD BUN (Blood Urea 28 (H) 8 - 24 05/08/2020 DTL Nitrogen), S mg/dL 1:00 PM FACULTY HEAD Creatinine 2.25 (H) 0.74 - 05/08/2020 DTL 1.35 mg/dL 1:00 PM FACULTY HEAD eGFR-Non 29 (L) >=60 05/08/2020 DTL Black/ mL/min/BSA 1:00 PM FACULTY HEAD [place]er Comment: ----ADDITIONAL INFORMATION---- Estimated GFR calculated using the 2009 CKD_EPI creatinine equation. eGFR-Black/ 33 (L) >=60 mL/min/BSA 2019 1:00 PM FACULTY HEAD DTL Comment: ----ADDITIONAL INFORMATION---- Estimated GFR calculated using the 2009 CKD_EPI creatinine equation. Calcium, Total, S 7.7 (L) 8.8 - 10.2 mg/dL 05/08/2020 1:00 PM FACULTY HEAD DTL Glucose, S 278 (H) 70 - 140 mg/dL 05/08/2020 1:00 PM FACULTY HEAD D TL Specimen Anatomical Collection Method Collection Time Receive d Time (Source) Location / / Volume Laterality Blood (Blood, 05/08/2020 12:16 05/08/2020 Venous) PM FACULTY HEAD 12:34 PM FACULTY HEAD Bebeto Ayala M.D., M.S. LAB BLOOD ADD-ON Performing Organization Address City/State/ZIP Code Phon e Number [facility] - [address] [place], [place] [address] [facility] [place] [address] [facility] [address] documented in this [...] 10 mg (NORVASC) Given 05/10/2020 8:04 AM FACULTY HEAD 10 mg 10 mg, oral, Daily, First dose on Tue05/09/20 at 0900 Given 05/09/2020 9:16 AM FACULTY HEAD [address] tablet 325 mg Given 05/09/2020 5:29 PM FACULTY HEAD 325 mg 325 mg, oral, Every evening, First dose on Tue05/08/20 at 1800, Swallow whole. Do NOT crush, chew, or split tablet. Given 05/08/2020 6:47 PM FACULTY HEAD 325 mg atorvastatin tablet 20 mg (LIPITOR) Given 05/09/2020 9:23 PM FACULTY HEAD 20 mg 20 mg, oral, Daily at bedtime, First dose on Tue05/08/20 at 2100 Given 05/08/2020 8:29 PM FACULTY HEAD 20 mg carvediloL tablet 25 mg (COREG) Given 05/10/2020 8:04 AM FACULTY HEAD 25 mg 25 mg, oral, 2 times daily with meals, First dose on Tue05/09/20 at 0800 Given 05/09/2020 4:52 PM FACULTY HEAD 25 mg Given 05/09/2020 7:44 AM FACULTY HEAD 25 mg cefTRIAXone in dextrose (iso-osm) IVPB New Bag 05/08/2020 1:25 PM FACULTY HEAD 1 g 200 mL/hr 1 g (ROCEPHIN) 1 g, intravenous, at 200 mL/hr, Administer over 15 Minutes, Every 24 hours, First dose on Linda 05/08/20 at 1230, premix bag, Drug Monitoring Program: Pharmacist to adjust medication dosing based on indication and drug clearance factors., Indications: Chronic antibiotic suppression, Respiratory tract infection, healthcare associated chlorthalidone tablet 12.5 mg (HYGROTON) Given 05/09/2020 2:47 PM FACULTY HEAD 12.5 mg 12.5 mg, oral, Daily, First dose on Tue05/09/20 at 1430 chlorthalidone tablet 12.5 mg (HYGROTON) Given 05/09/2020 7:36 PM FACULTY HEAD 12.5 mg 12.5 mg, oral, Once, On Tue05/09/20 at 1900, For 1 dose chlorthalidone tablet 25 mg (HYGROTON) Given 05/10/2020 8:04 AM FACULTY HEAD 25 mg 25 mg, oral, Daily, First dose (after last modification) on 05/10/20 at 0730 cloNIDine tablet 0.1 mg (CATAPRES) Given 05/08/2020 3:14 PM FACULTY HEAD 0.1 mg 0.1 mg, oral, 2 times [...] 10 mg (SINEquan) Given 05/09/2020 9:23 PM FACULTY HEAD 10 mg 10 mg, oral, Daily at bedtime, First dose on Linda 05/08/20 at 2100 Given 05/08/2020 8:29 PM FACULTY HEAD [address] capsule 60 mg (CYMBALTA) Given 05/09/2020 9:23 PM FACULTY HEAD 60 mg 60 mg, oral, Daily, First dose on Linda 05/08/20 at 2100, See tube feeding guidelines for tube feeding administration instructions. Given 05/08/2020 8:29 PM FACULTY HEAD 60 mg glucagon injection 1 mg (GlucaGen) [...] gel. heparin (porcine) Given 05/10/2020 6:20 AM FAC[facility]Y HEAD 5,000 Units Right Lower injection 5,000 Units Abdomen 5,000 Units, subcutaneous, Every 8 hours scheduled, First dose on Tue05/08/20 at 1145 Given 05/09/2020 9:23 PM FACULTY HEAD 5,000 Units Left Lower Abdomen Given 05/09/2020 2:47 PM FACULTY HEAD 5,000 Units Right Lower Abdomen insulin aspart U-100 Given 05/10/2020 12:02 PM FACULTY HEAD 6 Units Left Upper Abdomen injection 0-13 [...] writing Insulin orders Given 05/09/2020 5:26 PM FACULTY HEAD 2 Units Right Lower Abdomen Given 05/08/2020 1:41 PM FACULTY HEAD 6 Units Left Lower Abdomen insulin aspart U-100 Given 05/09/2020 9:18 AM FACULTY HEAD 6 Units Left Lower Abdomen injection 6 Units (NovoLOG FlexPen) 6 Units, subcutaneous, Daily with breakfast, First dose (after last modification) on Tue05/09/20 at 0800 insulin aspart U-100 Given 05/08/2020 2:21 PM FACULTY HEAD 8 Units Right Lower Abdomen injection 8 Units (NovoLOG FlexPen) 8 Units, subcutaneous, Daily with lunch, First dose on Tue05/08/20 at 1200 insulin aspart U-100 Given 05/08/2020 6:42 PM FACULTY HEAD 8 Units Right Lower Abdomen injection 8 Units (NovoLOG FlexPen) 8 Units, subcutaneous, Daily with dinner, First dose on Tue05/08/20 at 1700 insulin glargine injection Given 05/09/2020 9:23 PM FACULTY HEAD 22 Units Left Upper Abdomen 22 Units 22 Units, subcutaneous, Daily at bedtime, First dose (after last modification) on Tue05/09/20 at 2100 insulin glargine injection Given 05/08/2020 8:31 PM FACULTY HEAD 30 Units Left Upper Abdomen 30 Units 30 Units, subcutaneous, Daily at bedtime, First dose on Tue05/08/20 at 2100 metoprolol succinate 24 hr tablet 200 mg Given 05/08/2020 1:03 P M FACULTY HEAD 200 mg (TOPROL-XL) 200 mg, oral, Daily, First dose on Linda 05/08/20 at 1215, Do NOT crush or chew. Tablet may be split on score if needed. metoprolol tartrate tablet 50 mg (LOPRES SOR) Given 05/09/2020 11:44 PM FACULTY HEAD 50 mg 50 mg, oral, Once, On [...] mL/hr Right Antecubital NaCl (iso-osm) 200 mL FACULTY HEAD infusion (CARDENE) 5-15 mg/hr (25-75 mL/hr), intravenous, Continuous, Starting on Linda 05/08/20 at 1445, Premix ba mg in 200 mL. Protect from light., Initiate at: 5 mg/hr, Titrate at: 2.5 mg/hr every 15 min., Goal: Other, Goal: SBP<180 NIFEdipine XL 24 hr tablet 30 mg (PROCARDIA Given 05/08/2020 2:2 6 PM FACULTY HEAD 30 mg XL) 30 mg, oral, Once, On Linda 05/08/20 at 1430, For 1 dose, Swallow whole. Do NOT crush, chew, or split tablet. nortriptyline capsule 100 mg (PAMELOR) Given 05/09/2020 9:23 PM FACULTY HEAD 100 mg 100 mg, oral, Daily at bedtime, First dose on Linda 05/08/20 at 2100 Given 05/08/2020 8:29 PM FACULTY HEAD 100 mg oxyCODONE IR tablet 10 mg (ROXICODONE) Given 05/09/2020 4:55 PM FACULTY HEAD 10 mg 10 mg, oral, Every 4 hours PRN, moderate pain or score 4-6 of 10, severe pain or score 7-10 of 10, Starting on Linda 05/08/20 at 1136 Given 05/08/2020 4:49 PM FACULTY HEAD [address] tablet 40 mg (PROTONIX) Given 05/10/2020 6:20 AM FACULTY HEAD 40 mg 40 mg, oral, Daily, First dose on Tue05/09/20 at 0700, Swallow whole. Do NOT crush, chew, or split tablet. Given 05/09/2020 6:20 AM FACULTY HEAD 40 mg pramipexole tablet 0.5 mg (MIRAPEX) Given 05/09/2020 9:23 PM FACULTY HEAD 0.5 mg 0.5 mg, oral, Daily at bedtime, First dose on Tue05/08/20 at 2100 Given 05/08/2020 8:30 PM FACULTY HEAD 0.5 mg sulfur hexafluoride microspheres injection Given 05/08/2020 4:00 PM FACULTY HEAD 2 mL (LUMASON) intravenous, As needed, contrast, Starting on Tue05/08/20 at 1604, See protocol. Reconstitute each 25 mg vial with 5 mL NS. documented in this encounter Active and Recently Administered Medications Times are shown in FACULTY HEAD. Scheduled Medication Order 05/08/2020 05/09/2020 05/10/2020 amLODIPine [...] mg of calcium, oral, Every 2 hour AL N, heartburn, indigestion, Starting Tue05/08/20 at 1131, [...] COVID19 Pending 05/08/2020 05/08/2020 05/08/2020 2:44 PM FACULTY HEAD Assessment Noted Time PHQ-9 Depression Total Score: 3 01/03/2018 10:38 AM CD T documented as of this encounter Care Teams Cigarette Roller Relationship Specialty Start Date End Date Elsewhere, Pcp PCP - General Family Medicine 01/29/20 documented as of this encounter
--- OUTSIDE RECORDS SUMMARY | 2022-03-31 07:49 | XMS_ITS | Encounter Summary ---
:1950 Author Organization [facility] Address [address] [place] [address] Care Team Providers Name Role Phone Elsewhere, Pcp Primary Care Provider Unavailable Reason for Visit Appointment Request (Routine) - Closed Specialty Diagnoses / Procedures Referred By Contact Refer red To Contact Nephrology and Hypertension Referral ID Status Reason Start Date Expiration Date Visits Requ ested Visits Authorized [id number] Closed 08/22/2020 08/22/2021 1 1 Encounter Details Date Type Department Care Team Description 09/29/2020 External Outreach Division of [place], Hypertensi ve Chronic Kidney Disease (CKD) Stage 3b Glomerular Filtration Rate (GFR) 30 To 44 (HCC) (Primary Dx); Nephrology and Haseeb Thomas Jr., Osteodystrop hy Renal; Hypertension in D.O. Anemia Of Chronic Renal Disease; [place], [place] [address] [facility] Peripheral Arterial Disease (HCC); [address] [place], [place] Hyperkalemia; [place] [address] Acidosis Metabolic Hyperchloremic; [address] Diabetes Mellitus Type 2 Wit h Other [...] How often do you attend anglican or voodoo services? 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 - 09/29/2020 3:30 PM CDT Please see scanned in note under document viewer tab for the [facility] outreach visit from this date. documented in [...] documented as of this encounter Care Teams Round Kiln Drawer Relationship Specialty Start Date End Date Elsewhere, Pcp PCP - General Family Medicine 01/29/20 documented as of this encounter
--- OUTSIDE RECORDS SUMMARY | 2022-03-31 07:49 | XMS_ITS | Encounter Summary ---
:1950 Author Organization [facility] Address [address] [place] [phone] Care Team Providers Name Role Phone Elsewhere, Pcp Primary Care Provider Unavailable Encounter Details Date Type Department Care Team Description 08/04/2020 Hospital Encounter Department of Kemar Velásquez Periphe [facility] Arterial Radiology, Santiago DavidB.S. Disease (HCC) Building, in [address] [place] [address] [place], [place] [phone] (Work) [phone] Social History Tobacco Use Types Packs/Day Years [...] How often do you attend pentecostalism or adventism services? 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
--- OUTSIDE RECORDS SUMMARY | 2022-03-31 07:49 | XMS_ITS | Encounter Summary ---
:1950 Author Organization [facility] Address [address] [place] [id number] Care Team Providers Name Role Phone Elsewhere, Pcp Primary Care Provider Unavailable Encounter Details Date Type Department Care Team Description 08/04/2020 Hospital Encounter Department of Kemar Velásquez Periphe [facility] Arterial Radiology, Santiago DavidB.S. Disease (HCC) Building, in [address] [place] [address] [place], [place] [phone] (Work) [phone] Social History Tobacco Use Types Packs/Day Years [...] How often do you attend jainism or alevism services? 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 Stable elevated velocities of the right RETAIL BAKERY MANAGER without focal stenosis. 3. Stable stented left SFA without steno sis. 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 4. New high-grade stenosis of the left p roximal COSMETIC DENTIST. Narrative 08/04/2020 10:59 AM CDT EXAM: US [...] osis. Stable elevated velocities of the right RETAIL BAKERY MANAGER without focal stenosis. 3. Stable stented left SFA without steno sis. 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 4. New high-grade stenosis of the left p roximal COSMETIC DENTIST. Kemar ETIENNE US PROCEDURES documented in this encounter Visit Diagnoses Diagnosis Peripheral Arterial Disease (HCC) documented in this encounter Additional Health Concerns Assessment Noted Time PHQ-9 Depression Total Score: 3 01/03/2018 10:38 AM CD T documented as of this encounter Care Teams Abrasive Worker Relationship Specialty Start Date End Date Elsewhere, Pcp PCP - General Family Medicine 01/29/20 documented as of this encounter
--- OUTSIDE RECORDS SUMMARY | 2022-03-31 07:49 | XMS_ITS | Encounter Summary ---
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 [facility] Procedures US Lower Extremity Arteries Bilateral [address] [place] [address] Referral ID Status Reason Start Date Expiration Date Visits Requ ested Visits Authorized [id number] Closed 08/04/2020 08/04/2021 1 1 Outpatient (Routine) - Closed Specialty Diagnoses / Procedures Referred By Contact Refer red To Contact Diagnoses Follow Up Exam Peripheral Arterial Disease (HCC) Diabetes Mellitus Type 2 With Other Circulatory Complication Hyperglycemic (HCC) 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) Kemar Velásquez M.B.B.S. [facility] Procedures US Aorta Iliac Arteries Left with Doppler [address] [place] [address] Referral ID Status Reason Start Date Expiration Date Visits Requ ested Visits Authorized [id number] Closed 08/04/2020 08/04/2021 1 1 Outpatient (Routine) - Closed Specialty Diagnoses / Procedures Referred By Contact Refer red To Contact Vascular Medicine Diagnoses Peripheral Arterial Disease (HCC) Diabetes Mellitus Type 2 With Other Circulatory Complication Hyperglycemic (HCC) 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) [facility] Frankie[facility] [address] [place] [phone] Referral ID Status Reason Start Date Expiration Date Visits Requ ested Visits Authorized [id number] Closed 08/04/2020 08/04/2021 1 1 Reason for Visit Outpatient (Routine) - Closed Specialty Diagnoses / Procedures Referred By Contact Refer red To Contact Vascular Surgery Kemar Velásquez M.B.B. SFei [facility] [address] [place] [phone] Referral ID Status Reason Start Date Expiration Date Visits Requ ested Visits Authorized [id number] Closed 09/17/2019 09/16/2020 1 1 Encounter Details Date Type Department Care Team Description 08/04/2020 Office Visit Division of Vascular Keamr Velásquez Perip eral Arterial Disease (HCC) (Primary Dx); and Endovascular M.Faith.S. Diabetes Mellitus Type 2 With Other Circ ulatory Complication Hyperglycemic (HCC); Surgery in [address] Atherosclerosis Arteriosclerosis Obliter ans Lower Extremity (HCC); [place], [place] Follow Up Exam [address] [place] [address] [place], [place] [phone] (Work) [phone] Social History Tobacco Use Types Packs/Day Years [...] week 03/25/2021 How often do you attend religion or roman catholic services? 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 documented as of this encounter Consult Notes [...] Priority Associated Diagnoses Order S [facility] Vascular Medicine - Outpatient Routine Peripheral Arterial [...] City/State/ZIP Code Phon e Number [facility] - [address] [place], [place] [address] [facility] [place] [address] [facility] [address] Sodium (02/10/2021 8:27 AM CDT) athologist Signature Sodium, S 138 135 - 145 02/10/2021 DTL mmol/L 10:06 AM CDT Specimen Anatomical Collection Method Collection Time Receive d Time (Source) Location / / Volume Laterality Blood (Blood, 02/10/2021 8:27 AM 02/11/20 21 9:07 Venous) CDT AM CDT Kemar DavidB.S. LAB BLOOD ADD-ON Performing Organization Address City/[facility] Phon e Number [facility] - [address] [place] [address] (ABNORMAL) Potassium (02/10/2021 8:27 AM CDT) athologist Signature Potassium, S 6.0 (CH) 3.6 - 5.2 02/10/2021 DTL mmol/L 10:06 AM CDT Specimen Anatomical Collection Method Collection Time Receive d Time (Source) Location / / Volume Laterality Blood (Blood, 02/10/2021 8:27 AM 02/11/20 9:07 Venous) CDT AM CDT Kemar Redman.S. LAB BLOOD ADD-ON Performing Organization Address City/[facility] Phon e Number [facility] - [address] (ABNORMAL) Lipid Panel (02/10/2021 8:27 AM [...] DavidB.S. LAB BLOOD ADD-ON Performing Organization Address City/[facility] Phon e Number [facility] - 200 [place], [place] [address] [facility] [place] [address] Glucose, Fasting (02/10/2021 8:27 AM CDT) [...] LAB BLOOD NON ADD-ON Performing Organization Address City/[facility] Phon e Number [facility] - 200 [place], [place] [address] [facility] [place] [place] [address] (ABNORMAL) Creatinine with Estimated GFR (02/10/2021 8:27 AM CDT) Analysis Performed At Patho logist Time Signature Creatinine 3.20 (H) 0.74 - 02/10/2021 DTL 1.35 mg/dL 10:06 AM CDT eGFR-Non 19 (L) >=60 02/10/2021 DTL Black/ mL/min/BSA 10:06 AM CDT Senegalese Comment: ----ADDITIONAL INFORMATION---- Estimated GFR calculated using [...] City/State/ZIP Code Phon e Number [facility] - [address] [place], [place] [address] [facility] [place] [address] [facility] [address] [facility] (ABNORMAL) CBC with Differential, Blood (02/10/2021 8:27 AM CDT) [facility] gist Method Time Signature Hemoglobin 10.3 [...] Redman.S. LAB BLOOD ADD-ON Performing Organization Address City/[facility] Phon e Number [facility] - [address] AST (Aspartate Aminotransferase) (02/10/2021 8:27 AM CDT) [facility] gist Method Time Signature Aspartate 18 8 - 48 02/10/2021 DTL Aminotransferase U/L 10:06 AM CDT (AST), S Specimen Anatomical Collection Method Collection Time Receive d Time (Source) Location / / Volume Laterality Blood (Blood, 02/10/2021 8:27 AM 02/11/20 21 9:07 Venous) CDT AM CDT Kemar DavidB.S. LAB BLOOD ADD-ON Performing Organization Address City/[facility] Phon e Number [facility] - 200 [place], [place] [address] [place] [address] [place] Lower Extremity Arteries Bilateral (02/06/2021 3:29 [...] as of this encounter Care Teams Manager Landscape Relationship Specialty Start Date End Date Elsewhere, Pcp PCP - General Family Medicine 01/29/20 documented as of this encounter
--- OUTSIDE RECORDS SUMMARY | 2022-03-31 07:49 | XMS_ITS | Encounter Summary ---
:1950 Author Organization [facility] Address [address] [place] [address] Care Team Providers Name Role Phone Elsewhere, Pcp Primary Care Provider Unavailable Reason for Referral Outpatient (Routine) - Closed Specialty Diagnoses / Procedures Referred By Contact Refer red To Contact Diagnoses Peripheral Arterial Disease (HCC) Kemar Velásquez M.B.B.S. [facility] Procedures Lower Extremity Arterial (MIMI) - TCPO2 (Wound) [address] [place] [phone] Referral ID Status Reason Start Date Expiration Date Visits Requ ested Visits Authorized [id number] Closed 09/17/2019 09/16/2020 1 1 Reason for Visit Outpatient (Routine) - Closed Specialty Diagnoses / Procedures Referred By Contact Refer red To Contact Diagnoses Peripheral Arterial Disease (HCC) Kemar Velásquez M.B.B.S. [facility] Procedures Lower Extremity Arterial (MIMI) - TCPO2 (Wound) [address] [place] [address] Referral ID Status Reason Start Date Expiration Date Visits Requ ested Visits Authorized [id number] Closed 09/17/2019 09/16/2020 1 1 Encounter Details Date Type Department Care Team Description 08/04/2020 Hospital Encounter Department of Kemar Velásquez Periphe ral Arterial Vascular Medicine in M.BeataB.S. Disease ([facility]) [place], [place] [address] [facility] [address] [place] [phone] [phone] Social History Tobacco Use Types Packs/Day Years [...] How often do you attend synagogue or holiness services? 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 Kemar Reyes CV VASCULAR PROCEDURES documented in this encounter Visit Diagnoses Diagnosis Peripheral Arterial Disease (HCC) documented in this encounter Additional Health Concerns Assessment Noted Time PHQ-9 Depression Total Score: 3 01/03/2018 10:38 AM CD T documented as of this encounter Care Teams Healthcare Or Medical Relationship Specialty Start Date End Date Elsewhere, Pcp PCP - General Family Medicine 01/29/20 documented as of this encounter
--- OUTSIDE RECORDS SUMMARY | 2022-03-31 07:49 | XMS_ITS | Encounter Summary ---
:1950 Author Organization [facility] Address [address] [place] [address] Care Team Providers Name Role Phone Elsewhere, Pcp Primary Care Provider Unavailable Encounter Details Date Type Department Care Team Description 07/16/2020 Orders Only [facility] PCP [facility] Sa barbara Jean M.D. [address] [place], [place] [phone] (Wo rk) Social History [...] How often do you attend orthodox or cheondoism services? 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
--- OUTSIDE RECORDS SUMMARY | 2022-03-31 07:50 | XMS_ITS | Encounter Summary ---
:1950 Author Organization [facility] Address [address] [place] [address] Care Team Providers Name Role Phone Unavailable Primary Care Provider Unavailable Reason for Visit Reason Comments Med Refill Encounter Details Date Type Department Care Team Description 08/15/2019 Refill Department of Family Medicine, Bambi Adler Med Refill [facility], in Renee Phillips M.D. [place] [address] [place] [address] [place] [address] [phone] Social History Tobacco Use Types Packs/Day Years [...] How often do you attend yazdanism or nondenominational services? 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
--- OUTSIDE RECORDS SUMMARY | 2022-03-31 07:50 | XMS_ITS | Encounter Summary ---
:[address] [facility] Address [address] [place] [address] Care Team Providers Name Role Phone Unavailable Primary Care Provider Unavailable Reason for Visit Reason Comments Med Refill Encounter Details Date Type Department Care Team Description 07/06/2019 Refill Department of Angi Dickens M.D. Med Refill Medicine, [facility], [address] [place] [address], [facility] [address] [place] [address] Social History Tobacco Use [...] How often do you attend religious or latter day services? 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
--- OUTSIDE RECORDS SUMMARY | 2022-03-31 07:50 | XMS_ITS | Encounter Summary ---
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 [facility] Procedures Lower Extremity Arterial (MIMI) - TCPO2 (Wound) [address] [place] [phone] Referral ID Status Reason Start Date Expiration Date Visits V isits Requested Authorized [id number] Canceled 06/26/2019 06/25/2020 1 1 Encounter Details Date Type Department Care Team Description 09/17/2019 Hospital Encounter Department of Kemar Veláqsuez Cancele d (Clinic: Vascular Medicine in M.B.B.S. Appt Not Needed) [place], [place] [address] [facility] [address] [place] [address] [phone] Social History Tobacco Use Types Packs/Day Years [...] How often do you attend jain or religion services? 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
--- OUTSIDE RECORDS SUMMARY | 2022-03-31 07:50 | XMS_ITS | Encounter Summary ---
:1950 Author Organization [facility] Address [address] [place] [address] Care Team Providers Name Role Phone Elsewhere, Pcp Primary Care Provider Unavailable Reason for Visit Reason Comments COVID Inquiry Encounter Details Date Type Department Care Team Description 02/22/2020 Clinical Communication Department of [facility] Shanon Bain, [facility], [facility] [address] [place], [place] [address] [place], [place] [phone] (Work) [phone] Social History Tobacco Use Types Packs/Day Years [...] week 03/25/2021 How often do you attend adventist or judaism services? 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
--- OUTSIDE RECORDS SUMMARY | 2022-03-31 07:50 | XMS_ITS | Encounter Summary ---
:1950 Author Organization [facility] Address [address] [place] [address] Care Team Providers Name Role Phone Elsewhere, Pcp Primary Care Provider Unavailable Encounter Details Date Type Department Care Team Description 05/08/2020 Ancillary Procedure Department of Niels Casey, Radiology in .D. [place], [place] [address] [facility] [address] [place] [phone] (Wo rk) Social History Tobacco Use Types [...] How often do you attend adventist or synagogue services? 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 documented in this encounter Results Interpretation of Outside CT Chest (05/08/2020 12:45 PM EARLY CHILDHOOD EDUCATION INSTRUCTOR) Anatomical Region Laterality Modality Chest, Thoracic RST LOS, Thoracic ARZ LOS, Thoracic N/A Computed Tomography FLA LOS, Other, Body Specimen (Source) Anatomical Collection Method Collection Time Re ceived Time Location / / Volume Laterality 05/08/2020 1:05 PM EARLY CHILDHOOD EDUCATION INSTRUCTOR Impressions 05/08/2020 1:13 PM EARLY CHILDHOOD EDUCATION INSTRUCTOR 1. Findings consistent with volume overload/congestive failure. 2. Multifocal groundglass opacities most notable in the right apex could also be related to edema, but the distribution i s not typical for that. These are most suggestive of a superimposed infectious/ inflammatory process. COVID-19 pneumonia is possible, but this is not a specific appearance. 3. Mediastinal lymphadenopathy, indeterm inate. Narrative 05/08/2020 1:13 PM EARLY CHILDHOOD EDUCATION INSTRUCTOR EXAM: ??INTERPRETATION OF OUTSIDE CT CHEST. Outside [...] COVID19 Pending 05/08/2020 05/08/2020 05/08/2020 2:44 PM EARLY CHILDHOOD EDUCATION INSTRUCTOR Assessment Noted Time PHQ-9 Depression Total Score: 3 01/03/2018 10:38 AM CD T documented as of this encounter Care Teams Automatic I Threading Machine Feeder Relationship Specialty Start Date End Date Elsewhere, Pcp PCP - General Family Medicine 01/29/20 documented as of this encounter
--- OUTSIDE RECORDS SUMMARY | 2022-03-31 07:50 | XMS_ITS | Encounter Summary ---
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 [facility] Procedures Lower Extremity Arterial (MIMI) - TCPO2 (Wound) [address] [place] [address] Referral ID Status Reason Start Date Expiration Date Visits Requ ested Visits Authorized [id number] Closed 09/17/2019 09/16/2020 1 1 Reason for Visit Outpatient (Routine) - Closed Specialty Diagnoses / Procedures Referred By Contact Refer red To Contact Diagnoses Atherosclerosis Of [place] Ar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 (HCC) Atherosclerosis Of [place] Arteries Of Left Leg With Ulceration Of Unspecified Site (HCC) Peripheral Arterial Disease (HCC) Kemar Velásquez M.B.B.S. [facility] Procedures Lower Extremity Arterial (MIMI) - TCPO2 (Wound) [address] [place] [address] Referral ID Status Reason Start Date Expiration Date Visits Requ ested Visits Authorized [id number] Closed 09/17/2019 09/16/2020 1 1 Encounter Details Date Type Department Care Team Description 09/17/2019 Hospital Encounter Department of Kemar Velásquez Atheros clerosis Of [place] Ar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 (HCC); Vascular Medicine M.B.B.S. Atherosclerosis Of [place] Arteries Of Le ft Leg With Ulceration Of Unspecified Site (HCC); in [address] Peripheral Arterial Disease (HCC) [place], [place] [address] [facility] [address] [place], [place] [phone] (Work) [phone] Social History Tobacco Use Types Packs/Day Years [...] How often do you attend episcopal or taoist services? 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 Claudication Right Leg (HCC) Atherosclerosis Of [place] [...] this encounter Visit Diagnoses Diagnosis Atherosclerosis Of [place] Arteries Of Ex tremities With Intermittent Claudication Right Leg (HCC) Atherosclerosis Of [place] Arteries Of Le ft Leg With Ulceration Of Unspecified Site (HCC) Peripheral Arterial Disease (HCC) documented in this encounter Additional Health Concerns Assessment Noted Time PHQ-9 Depression Total Score: 3 01/03/2018 10:38 AM CD T documented as of this encounter
--- OUTSIDE RECORDS SUMMARY | 2022-03-31 07:50 | XMS_ITS | Encounter Summary ---
:[address] [facility] Address [address] [place] [address] Care Team Providers Name Role Phone Unavailable Primary Care Provider Unavailable Reason for Visit Reason Comments Nicotine Dependence Outpatient (Routine) - Closed Specialty Diagnoses / Procedures Referred By Contact Refer red To Contact Pulmonary Medicine / Diagnoses Peripheral Arterial Disease (HCC) [facility] M.B.B.S. [address] [place] [phone] Referral ID Status Reason Start Date Expiration Date Visits Requ ested Visits Authorized [id number] Closed 09/17/2019 09/16/2020 1 1 Encounter Details Date Type Department Care Team Description 09/25/2019 Clinical Support Department of Kemar Velásquez M .B.B.S. [address] [place] [phone] Nicotine Dependence Cigarettes With With drawal (Primary Dx); Nicotine Dependence, Riana Adams M.A., C.T.T.S. [address] [place] [phone] Peripheral Arterial Disease (HCC); [facility], in Tobacco U se [place], [place] [address] [place] [phone] Social History Tobacco Use Types Packs/Day Years [...] How often do you attend pentecostalism or uatsdin services? 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 - 09/25/2019 11:00 AM CDT SUBJECTIVE CHIEF COMPLAINT / REASON FOR VISIT Tobacco use disorder 30 minutes consultation; CO testing HISTORY OF PRESENT ILLNESS Onesimo Walton is a 69 y.o. male who was seen at [place] [address] and is being evaluated for Tobacco Use [...] also encouraged the patient to call the [facility] if he needs any assistance with getting the Chantix if needed as well. Our [facility] physician will arrange for these scripts to go the [facility] pharmacy in [place], [place]. BEHAVIORAL PLAN: Cognitive and behavorial techniques [...]
--- OUTSIDE RECORDS SUMMARY | 2022-03-31 07:50 | XMS_ITS | Encounter Summary ---
:1950 Author Organization [facility] Address [address] [place] [address] Care Team Providers Name Role Phone Unavailable Primary Care Provider Unavailable Reason for Visit Reason Onset Date Comments COVID Inquiry 09/24/2019 Encounter Details Date Type Department Care Team Description 09/24/2019 Clinical Communication Department of July Hernandez COVID Inquiry Nutrition in A, RDN, LD [place], [place] [address] [place] [address] Social History Tobacco Use Types Packs/Day Years [...] How often do you attend rastafarian or orthodox services? 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
--- OUTSIDE RECORDS SUMMARY | 2022-03-31 07:50 | XMS_ITS | Encounter Summary ---
:1950 Author Organization [facility] Address [address] [place] [address] Care Team Providers Name Role Phone Unavailable Primary Care Provider Unavailable Encounter Details Date Type Department Care Team Description 01/17/2020 Orders Only [facility] PCP [facility] MNT Ruthie Montero iabetes Mellitus Type 2 Renee means, With Other Circ ulatory M.Estiven Complication [address] [facility] (HCC) [place] [address] Social History Tobacco Use Types Packs/Day [...] How often do you attend gnosticist or jewish services? 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
--- OUTSIDE RECORDS SUMMARY | 2022-03-31 07:50 | XMS_ITS | Encounter Summary ---
:1950 Author Organization [facility] Address [address] [place] [address] Care Team Providers Name Role Phone Elsewhere, Pcp Primary Care Provider Unavailable Reason for Visit Reason Comments Med Refill Encounter Details Date Type Department Care Team Description 02/26/2020 Refill Department of Neurology in Yessy Cohen M.D., Med Refill [place], [place] [facility] [address] [place] [address] [place] [phone] (Wo rk) Social History Tobacco Use Types [...] How often do you attend adventism or congregation services? 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
--- OUTSIDE RECORDS SUMMARY | 2022-03-31 07:50 | XMS_ITS | Encounter Summary ---
:1950 Author Organization [facility] Address [address] [place] [address] Care Team Providers Name Role Phone Unavailable Primary Care Provider Unavailable Reason for Visit Reason Comments COVID Nurse Line Encounter Details Date Type Department Care Team Description 09/11/2019 Clinical Communication Division of Vascular Hallie Velásquez, TOBI Nurse Line and Endovascular M.B.B.S. Surgery in [place], [facility] [address] [place], [place] [address] [place] [address] [place], [place] [phone] (Work) [phone] Social History Tobacco Use Types Packs/Day Years [...] How often do you attend adventism or alevism services? 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 no Route reply to: [facility] SCHEDULING Scheduling Contact Number: [phone] documented in this encounter Plan of Treatment Not on filedocumented as of this encounter Visit Diagnoses Not on filedocumented in this encounter Additional Health Concerns Assessment Noted Time PHQ-9 Depression Total Score: 3 01/03/2018 10:38 AM CD T documented as of this encounter
--- OUTSIDE RECORDS SUMMARY | 2022-03-31 07:50 | XMS_ITS | Encounter Summary ---
:1950 Author Organization [facility] Address [address] [place] [address] Care Team Providers Name Role Phone Unavailable Primary Care Provider Unavailable Reason for Visit Reason Comments Med Refill Encounter Details Date Type Department Care Team Description 01/16/2020 Refill Department of Family Medicine, Bambi Adler Med Refill [facility], in Renee Phillips M.D. [place] [address] [place] [address] [place] [address] [phone] Social History Tobacco Use Types Packs/Day Years [...] How often do you attend confucianist or spiritism services? 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
--- OUTSIDE RECORDS SUMMARY | 2022-03-31 07:50 | XMS_ITS | Encounter Summary ---
:1950 Author Organization [facility] Address [address] [place] [address] Care Team Providers Name Role Phone Unavailable Primary Care Provider Unavailable Reason for Visit Reason Comments [facility] Med Request Encounter Details Date Type Department Care Team Description 09/25/2019 Clinical Communication Department of [facility] Med Request Nicotine Dependence, Sanya Mayers, [facility], [place] [address] [facility] [address] [place] [address] [phone] Social History Tobacco Use Types Packs/Day Years [...] How often do you attend orthodoxy or orthodox services? 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 SUPERVISOR documented as of this encounter Miscellaneous Notes Telephone Encounter - Riana Adams M.A., C.T.T.S. - 09/25/2019 12:36 PM CDT 1. 28 mg patch 2. Inhaler [place], [place] documented in this encounter Plan of Treatment Not on filedocumented as of this encounter Visit Diagnoses Diagnosis Nicotine Dependence Cigarettes With With drawal - Primary documented in this encounter Additional Health Concerns Assessment Noted Time PHQ-9 Depression Total Score: 3 01/03/2018 10:38 AM CD T documented as of this encounter
--- OUTSIDE RECORDS SUMMARY | 2022-03-31 07:50 | XMS_ITS | Encounter Summary ---
:1950 Author Organization [facility] Address [address] [place] [address] Care Team Providers Name Role Phone Unavailable Primary Care Provider Unavailable Reason for Visit Reason Onset Date Comments Med Refill 07/25/2019 Encounter Details Date Type Department Care Team Description 07/25/2019 Refill Department of Family Medicine, Bambi Adler, Med Refill [facility] Renee Phillips M.D. [place] [address] [place] [address] [place] [address] [phone] Social History Tobacco Use Types Packs/Day Years [...] How often do you attend spiritism or temple services? 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
--- OUTSIDE RECORDS SUMMARY | 2022-03-31 07:50 | XMS_ITS | Encounter Summary ---
:1950 Author Organization [facility] [place] [facility] Address [address] [place] [address] Care Team Providers Name Role Phone Unavailable Primary Care Provider Unavailable Reason for Referral Outpatient (Routine) - Closed Specialty Diagnoses / Procedures Referred By Contact Refer red To Contact Diagnoses Atherosclerosis Of [place] Indians[place] Ar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 (HCC) Atherosclerosis Of [place] Arteries Of Left Leg With Ulceration Of Unspecified Site (HCC) Peripheral Arterial Disease (HCC) Kemar Velásquez M.B.B.S. [facility] Procedures Lower Extremity Arterial (MIMI) - TCPO2 (Wound) [address] [place] [phone] Referral ID Status Reason Start Date Expiration Date Visits Requ ested Visits Authorized [id number] Closed 09/17/2019 09/16/2020 1 1 Encounter Details Date Type Department Care Team Description 09/17/2019 Orders Only Division of Vascular Masood, Atheros clerosis Of [place] Ar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 (HCC) (Primary Dx); and Endovascular Stacy Mcgee M.S., Athero sclerosis Of [place] Arteries Of Left Leg With Ulceration Of Unspecified Site (HCC); Surgery in [facility] Peripheral Arterial Disease (HCC) [place] [address] [facility] [address] [place] [address] [phone] Social History Tobacco Use Types Packs/Day Years [...] How often do you attend gnosticism or scientologist services? 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 documented as of this encounter Plan [...] this encounter Visit Diagnoses Diagnosis Atherosclerosis Of [place] Arteries Of Ex tremities With Intermittent Claudication Right Leg (HCC) - Primary Atherosclerosis Of [place] Arteries Of Le ft Leg With Ulceration Of Unspecified Site (HCC) Peripheral Arterial Disease (HCC) Atherosclerosis Of [place] Arteries Of Ex tremities With Intermittent Claudication Right Leg (HCC) Atherosclerosis Of [place] Arteries Of Le ft Leg With Ulceration Of Unspecified Site (HCC) Peripheral Arterial Disease (HCC) documented in this encounter Additional Health Concerns Assessment Noted Time PHQ-9 Depression Total Score: 3 01/03/2018 10:38 AM CD T documented as of this encounter
--- OUTSIDE RECORDS SUMMARY | 2022-03-31 07:50 | XMS_ITS | Encounter Summary ---
:1950 Author Organization [facility] Address [address] [place] [address] Care Team Providers Name Role Phone Unavailable Primary Care Provider Unavailable Reason for Referral Outpatient (Routine) - Closed Specialty Diagnoses / Procedures Referred By Contact Refer red To Contact Diagnoses Peripheral Arterial Disease (HCC) Kemar Velásquez M.B.B.S. [facility] Procedures Lower Extremity Arterial (MIMI) - TCPO2 (Wound) [address] [place] [phone] Referral ID Status Reason Start Date Expiration Date Visits Requ ested Visits Authorized [id number] Closed 09/17/2019 09/16/2020 1 1 Outpatient (Routine) - Closed Specialty Diagnoses / Procedures Referred By Contact Refer red To Contact Vascular Surgery Kemar Velásquez M.B.B. S. [facility] [address] [place] [phone] Referral ID Status Reason Start Date Expiration Date Visits Requ ested Visits Authorized [id number] Closed 09/17/2019 09/16/2020 1 1 Outpatient (Routine) - Closed Specialty Diagnoses / Procedures Referred By Contact Refer red To Contact Nutrition Diagnoses Peripheral Arterial Disease (HCC) Tobacco Use Kemar Velásquez M.B.B.S. [facility] [address] [place] [address] Referral ID Status Reason Start Date Expiration Date Visits Requ ested Visits Authorized [id number] Closed 09/17/2019 09/16/2020 1 1 Outpatient (Routine) - Closed Specialty Diagnoses / Procedures Referred By Contact Refer red To Contact Pulmonary Medicine / Diagnoses Peripheral Arterial Disease (HCC) [facility] M[facility] [address] [place] [phone] Referral ID Status Reason Start Date Expiration Date Visits Requ ested Visits Authorized [id number] Closed 09/17/2019 09/16/2020 1 1 Reason for Visit Outpatient (Routine) - Closed Specialty Diagnoses / Procedures Referred By Contact Refer red To Contact Vascular Surgery Kemar Velásquez M.B.B. S. [facility] [address] [place] [phone] Referral ID Status Reason Start Date Expiration Date Visits Requ ested Visits Authorized [id number] Closed 06/26/2019 06/25/2020 1 1 Encounter Details Date Type Department Care Team Description 09/17/2019 Office Visit Division of Vascular and Kemar Velásquez Pe ripheral Arterial Disease (HCC) (Primary Dx); Endovascular Surgery in M.B.B.S. Tobacco Use [place], [place] [address] [place] [address] [place] [phone] Social History Tobacco Use Types Packs/Day Years [...] How often do you attend pentecostalism or christian services? 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 They are both agreeable to the plan and look forward to meeting with our physics technician. I would like to see him back [...] focal stenosis, high-grade stenosis of the left SUPERVISOR PREPRESS, new and stable moderate stenosis of the [...] osis. Stable elevated velocities of the right WOOD FLOUR MILLER without focal stenosis. 3. Stable stented left SFA without steno sis. 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 4. New high-grade stenosis of the left p roximal SUPERVISOR PREPRESS. Narrative 08/04/2020 10:59 AM CDT EXAM: US [...] osis. Stable elevated velocities of the right WOOD FLOUR MILLER without focal stenosis. 3. Stable stented left SFA without steno sis. 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 4. New high-grade stenosis of the left p roximal SUPERVISOR PREPRESS. Kemar ETIENNE US PROCEDURES US Aorta Iliac [...]
--- OUTSIDE RECORDS SUMMARY | 2022-03-31 07:50 | XMS_ITS | Encounter Summary ---
:1950 Author Organization [facility] Address [address] [place] [address] Care Team Providers Name Role Phone Elsewhere, Pcp Primary Care Provider Unavailable Encounter Details Date Type Department Care Team Description 01/29/2020 Clinical Communication Department of [facility] [place] [place] [address] [place], [place] [phone] Social History Tobacco Use Types Packs/Day Years [...] often do you attend roman catholic or adventism services? 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
--- OUTSIDE RECORDS SUMMARY | 2022-03-31 07:50 | XMS_ITS | Encounter Summary ---
:1950 Author Organization [facility] Address [address] [place] [address] Care Team Providers Name Role Phone Elsewhere, Pcp Primary Care Provider Unavailable Reason for Visit Reason Comments Foreign Body in Skin Right pointer finger, slive r out yesterday in couple days Appointment Request (Routine) - Closed Specialty Diagnoses / Procedures Referred By Contact Refer red To Contact Family Medicine Referral ID Status Reason Start Date Expiration Date Visits Requ ested Visits Authorized [id number] Closed 02/22/2020 02/21/2021 1 1 Encounter Details Date Type Department Care Team Description 02/22/2020 Office Visit Urgent Care in [place] Bain, Celluliti s Finger [place], [place] Delmy Right (Primary Dx) [address] [facility] [place] [phone] Social History Tobacco Use Types Packs/Day Years [...] How often do you attend mormon or mandaeism services? 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 pantoprazole (PROTONIX) 40 [...] Rash itchy ??? Pregabalin Anaphylaxis swell ??? Tzeutja-Lon-Xxt Reductase Inhibitors Myalgia OBJECTIVE Vitals: 02/22/20 0949 [...] documented as of this encounter Care Teams Recycling Manager Relationship Specialty Start Date End Date Elsewhere, Pcp PCP - General Family Medicine 01/29/20 documented as of this encounter
--- OUTSIDE RECORDS SUMMARY | 2022-03-31 07:50 | XMS_ITS | Encounter Summary ---
:1950 Author Organization [facility] Address [address] [place] [address] Care Team Providers Name Role Phone Unavailable Primary Care Provider Unavailable Reason for Referral Outpatient (Routine) - Closed Specialty Diagnoses / Procedures Referred By Contact Refer red To Contact Family Medicine SHIVA Catalan SE, M.D. [address], [place] [phone] Referral ID Status Reason Start Date Expiration Date Visits Requ ested Visits Authorized [id number] Closed 06/26/2019 06/25/2020 1 1 PIPE GAUGER Encounter Details Date Type Department Care Team Description 06/26/2019 Orders Only RST PCP [facility] ANGIET Nena marino For Therapeutic Renee escobedo M.D. Drug Therapy [address] [place] [phone] (Wo rk) Social History Tobacco Use Types [...] How often do you attend sabianist or buddhism services? 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
--- OUTSIDE RECORDS SUMMARY | 2022-03-31 07:50 | XMS_ITS | Encounter Summary ---
:1950 Author Organization [facility] Address [address] [place] [address] Care Team Providers Name Role Phone Unavailable Primary Care Provider Unavailable Reason for Referral Outpatient (Routine) - Closed Specialty Diagnoses / Procedures Referred By Contact Refer red To Contact Vascular Surgery Kemar Velásquez M.B[facility]B. S[facility] [address] [place] [address] Referral ID Status Reason Start Date Expiration Date Visits Requ ested Visits Authorized [id number] Closed 06/26/2019 06/25/2020 1 1 MANAGEMENT AGENT Encounter Details Date Type Department Care Team Description 06/26/2019 Orders Only Division of Vascular [place], Atheros clerosis and Endovascular Stacy Mcgee M.S., Arteri osclerosis Surgery in [facility] Obliter[place] [address] [facility] Extremity With [address] [place], [place] Claudication (HCC) [place] [address] (Primary Dx) [phone] Social History Tobacco Use Types Packs/Day Years [...] do you talk on the phone T oltus a week 03/25/2021 with family, friends, or neighbors? How often do you get together with friends or relatives? Onc e a week 03/25/2021 How often do you attend episcopal or gnosticist services? 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
--- OUTSIDE RECORDS SUMMARY | 2022-03-31 07:50 | XMS_ITS | Encounter Summary ---
:1950 Author Organization [facility] Address [address] [place] [address] Care Team Providers Name Role Phone Unavailable Primary Care Provider Unavailable Reason for Visit Reason Comments Nicotine Dependence Encounter Details Date Type Department Care Team Description 10/19/2019 Clinical Communication Department of Akil Adams Dependence Nicotine Carlos Mayers, M.AFei, [facility] CT.T.S. in [place], [facility] [address] [place], [place] [address] [place] [phone] [place], [place] [phone] (Work) [phone] Social History Tobacco Use Types Packs/Day Years [...] How often do you attend religious or druze services? 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
--- OUTSIDE RECORDS SUMMARY | 2022-03-31 07:50 | XMS_ITS | Encounter Summary ---
:1950 Author Organization [facility] Address [address] [place] [address] Care Team Providers Name Role Phone Unavailable Primary Care Provider Unavailable Encounter Details Date Type Department Care Team Description 09/17/2019 Hospital Encounter Department of Kemar Velásquez Atheros clerosis Radiology, [facility] Amy Arteriosclerosis [facility], in [address] [place] [address] Obliter[place], [place] Extremity With [place] [phone] Claudication (HCC) [address] [place] [address] [place], [place] (Work) [phone] Social History Tobacco Use Types Packs/Day Years [...] How often do you attend mormonism or uatsdin services? 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
--- OUTSIDE RECORDS SUMMARY | 2022-03-31 07:50 | XMS_ITS | Encounter Summary ---
:1950 Author Organization [facility] Address [address] [place] [address] Care Team Providers Name Role Phone Unavailable Primary Care Provider Unavailable Reason for Visit Outpatient (Routine) - Closed Specialty Diagnoses / Procedures Referred By Contact Refer red To Contact Nutrition Diagnoses Peripheral Arterial Disease (HCC) Tobacco Use Kemar Velásquez M.B.BFeiS. [facility] [address] [place] [address] Referral ID Status Reason Start Date Expiration Date Visits Requ ested Visits Authorized [id number] Closed 09/17/2019 09/16/2020 1 1 Encounter Details Date Type Department Care Team Description 09/25/2019 Clinical Support Department of July Hernandez Arterial Disease (HCC); Nutrition in A, RDN, LD Tobacco Use [place], [place] [address] [place] [phone] Social History Tobacco Use Types Packs/Day Years [...] How often do you attend adventism or protestant services? 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 Breakfast: italian or toast with peanut butter, black coffee [...]
--- OUTSIDE RECORDS SUMMARY | 2022-03-31 07:50 | XMS_ITS | Encounter Summary ---
:1950 Author Organization [facility] Address [address] [place] [address] Care Team Providers Name Role Phone Unavailable Primary Care Provider Unavailable Encounter Details Date Type Department Care Team Description 09/14/2019 Clinical Communication Division of Vascular and Kemar Velásquez, Endovascular Surgery in [place], [place] [address] [facility] [address] [place] [phone] [phone] Social History Tobacco Use Types Packs/Day Years [...] How often do you attend sabianism or baptist services? Never 03/25/2021 Do you [...] or the highest technical, or vocational p nap- Naturally Attached Parents degree you have received? 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
--- OUTSIDE RECORDS SUMMARY | 2022-03-31 07:50 | XMS_ITS | Encounter Summary ---
:1950 Author Organization [facility] Address [address] [place] [address] Care Team Providers Name Role Phone Elsewhere, Pcp Primary Care Provider Unavailable Reason for Visit Reason Comments Nicotine Dependence Encounter Details Date Type Department Care Team Description 02/25/2020 Clinical Communication Department of Akil Adams Dependence Nicotine Carlos Mayers M.AFei, [facility], C.T.T.S. in [place] [address] [address] [place], [place] [address] [place] [address] [place], [place] [phone] (Work) [phone] Social History Tobacco Use Types Packs/Day Years [...] How often do you attend taoism or faith services? 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
--- OUTSIDE RECORDS SUMMARY | 2022-03-31 07:51 | XMS_ITS | Encounter Summary ---
:1950 Author Organization [facility] Address [address] [place] [address] Care Team Providers Name Role Phone Unavailable Primary Care Provider Unavailable Reason for Visit Reason Onset Date Comments Clopidogrel 05/04/2019 Encounter Details Date Type Department Care Team Description 05/04/2019 Clinical Communication Division of Vascular and Kemar Velásquez Clopidogrel Endovascular Surgery [place] [address] [facility] [address] [place] [phone] Social History Tobacco Use Types Packs/Day Years [...] How often do you attend denominational or gnosticism services? 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 Walton called and said he was supposed to get back to you with what medication he is taking. Heis taking clopidogrel 75 mg. Hermelinda NTIST PROPAGATOR documented in this encounter Plan of Treatment Not on filedocumented as of this encounter Visit Diagnoses Not on filedocumented in this encounter Additional Health Concerns Assessment Noted Time PHQ-9 Depression Total Score: 3 01/03/2018 10:38 AM CD T documented as of this encounter
--- OUTSIDE RECORDS SUMMARY | 2022-03-31 07:51 | XMS_ITS | Encounter Summary ---
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 Left Leg With Ulceration Of Unspecified Site (HCC) Atherosclerosis Of [place] Ar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 (HCC) documented in this encounter Results US Lower Extremity Arteries Bilateral (05/03/2019 8:44 AM DIRECTOR OF LABOR RELATIONS) Anatomical Region Laterality Modality Lower Extremity, Ultrasound RST LOS, Ultrasound ARZ LOS, Rodríguez ateral Ultrasound Ultrasound FLA LOS, Procedural Specimen (Source) Anatomical Collection Method Collection Time Re ceived Time Location / / Volume Laterality 05/03/2019 9:35 AM DIRECTOR OF LABOR RELATIONS Impressions 05/03/2019 9:42 AM DIRECTOR OF LABOR RELATIONS 1. Stable mild right common femoral artery [...] GINA jose nosis. Narrative 05/03/2019 9:42 AM DIRECTOR OF LABOR RELATIONS EXAM: US LOWER EXTREMITY ARTERIES BILATERAL Exam performed with color and spectral D oppler analysis. 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
--- OUTSIDE RECORDS SUMMARY | 2022-03-31 07:51 | XMS_ITS | Encounter Summary ---
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 Left Leg With Ulceration Of Unspecified Site (HCC) Atherosclerosis Of [place] Ar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 (HCC) documented in this encounter Results Lower Extremity Arterial (MIMI) - TCPO2 (Wound) (05/03/2019 11:13 AM COMMERCIAL LOAN MANAGER) Anatomical Region Laterality Modality Other Specimen (Source) Anatomical Collection Method Collection Time Re ceived Time Location / / Volume Laterality 05/03/2019 9:53 AM COMMERCIAL LOAN MANAGER Narrative 05/03/2019 9:53 AM COMMERCIAL LOAN MANAGER Right: Doppler Waveforms: ? 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
--- OUTSIDE RECORDS SUMMARY | 2022-03-31 07:51 | XMS_ITS | Encounter Summary ---
:1950 Author Organization [facility] Address [address] [place] [address] Care Team Providers Name Role Phone Unavailable Primary Care Provider Unavailable Reason for Visit Auth/Cert Specialty Diagnoses / Procedures Referred By Contact Refer red To Contact Diagnoses Atherosclerosis Of [place] Arteries Of Left Leg With Ulceration Of Unspecified Site (HCC) Atherosclerosis Of [place] Arteries Of Left Leg With Ulceration Of Unspecified Site (HCC) [I70.249] Procedures IA REVASC OPN/PERC ILIAC W STENT IR ENDOVASCULAR ANGIOPLASTY STENT ILIAC LOWER EXTREMITY right femoral access Referral ID Status Reason Start Date Expiration Date Visits Requ ested Visits Authorized [id number] 1 1 Encounter Details Date Type Department Care Team Description 05/11/2019 Surgery RST WENDY PETERS OR Kemar Velásquez, 1. Ultrasound guided [address] [place] [address] [address] [facility] common femoral artery [phone] [place], [place] and placement of a 6fr [phone] sheath. 2. Abdominal [phone] aortogram and p elvic (Work) angiogram 3. [...] How often do you attend confucianist or church services? 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 documented as of this encounter Last Filed Vital Signs Vital Sign Reading Time Taken Comments Blood Pressure 132/74 05/11/2019 2:15 PM BATCH TRUCKER Pulse 72 05/11/2019 2:15 PM BATCH TRUCKER Temperature 36.6 ??C (97.9 ??F) 05/11/2019 2:10 PM BATCH TRUCKER Respiratory Rate 13 05/11/2019 2:15 PM BATCH TRUCKER Oxygen Saturation 92% 05/11/2019 2:15 PM BATCH TRUCKER Inhaled Oxygen Concentration - - Weight 85.5 kg (188 lb 7.9 oz) 05/11/2019 7:20 AM BATCH TRUCKER Height 175 cm (5' 8.9) 05/11/2019 7:20 AM BATCH TRUCKER Body Mass Index 27.92 05/11/2019 7:20 AM BATCH TRUCKER documented in this encounter Medications at Time [...] MOUTH EVERY DAY AT BEDTIME clopidogrel (PLAVIX) 75 Take 1 tablet (75 [...] the skin 4 times daily rOPINIRole (REQUIP) 3 TAKE ONE TABLET BY [...] coordinated with Dr. Velásquez in 3-4 months. H TRUCKER documented in this encounter OR Notes Op [...] Primary * Betty Larkin M.D., M.P.H. - Senior Infrastructure Architect * Kasey Herr M.D. - Senior Infrastructure Architect Anesthesia Type Monitored anesthesia care Pre-operative Diagnosis Atherosclerosis Of [place] Arteries Of Left Leg With Ulceration Of Unspecified Site (HCC) Post-operative Diagnosis Atherosclerosis Of [place] Arteries Of Left Leg With Ulceration Of [...] Implant Name Type Inv. Item Serial No. Family Protection Specialist Lot No. LRB No. Used Action STNT INNOVA OTW [id number] - [id number] Vascular Stent STNT INNOVA OTW [id number] [employer] [id number] Left 1 Implanted Amy Renee H TRUCKER Brief Op Note - Betty Larkin M.D., M.P.H. - 05/11/2019 1:16 PM BATCH TRUCKER BRIEF OP NOTE Procedure(s) (LRB): IR ENDOVASCULAR ANGIOPLASTY STENT ILIAC LOWER EXTREMITY, right femoral access. (Left) Surgeon(s) and Role: * Kemar Velásquez M.B.B.S. - Primary * Betty Larkin M.D., M.P.H. - Senior Infrastructure Architect * Kasey Herr M.D. - Senior Infrastructure Architect Anesthesia Type Monitored anesthesia care Pre-operative Diagnosis Atherosclerosis Of [place] Arteries Of Left Leg With Ulceration Of Unspecified Site (HCC) Post-operative Diagnosis Atherosclerosis Of [place] Arteries Of Left Leg With Ulceration Of [...] Implant Name Type Inv. Item Serial No. Family Protection Specialist Lot No. LRB No. Used Action STNT INNOVA OTW [id number] - [id number] Vascular Stent STNT INNOVA OTW [id number] [employer] [id number] Left 1 Implanted LOWER EXTREMITY PVI Side [...] Vessels Treated? No Betty Larkin M.D., M.P.H. H TRUCKER documented in this encounter Plan of Treatment Pending Results Name Type Priority Associated Diagnoses Date/Ti az IR ENDOVASCULAR Imaging RAD - Routine Atherosclerosis Of 05/11 2:09 ANGIOPLASTY STENT (most inpatients [place] Arteries Of Left PM BATCH TRUCKER ILIAC LOWER and all Leg With Ulceration Of EXTREMITY outpatients) Unspecified Site (HCC) documented as of this encounter Procedures Procedure Name Priority Date/Time Associated Diagnosis Comme nts GLUCOSE POCT, B Routine 05/11/2019 6:29 Results f or PM BATCH TRUCKER this procedure are in the results section. GLUCOSE POCT, B Routine 05/11/2019 4:17 Results f or PM BATCH TRUCKER this procedure are in the results section. GLUCOSE POCT, B Routine 05/11/2019 2:18 Results f or PM BATCH TRUCKER this procedure are in the results section. IR ENDOVASCULAR RAD - Routine 05/11/2019 2:09 Atherosclerosis Of ANGIOPLASTY STENT (most inpatients PM BATCH TRUCKER [place] Arteries Of ILIAC LOWER and all Left Leg With EXTREMITY outpatients) Ulceration Of Unspecified Site (HCC) ACT, POCT, B Routine 05/11/2019 1:46 Results for PM BATCH TRUCKER this procedure are in the results section. ADULT OXYGEN Routine 05/11/2019 THERAPY 10:15 AM BATCH TRUCKER EXTUBATION Routine 05/11/2019 10:15 AM BATCH TRUCKER GLUCOSE POCT, B Routine 05/11/2019 Results for 10:12 AM BATCH TRUCKER this procedure are in the results section. documented in this encounter Results Glucose, POCT (05/11/2019 6:29 PM BATCH TRUCKER) Analysis Performed At Patho logist Time Signature Glucose, POCT, 119 70 - 140 05/11/2019 PCLX B mg/dL 6:37 PM BATCH TRUCKER Site Capillary 05/11/2019 PCLX 6:37 PM BATCH TRUCKER Specimen Anatomical Collection Method Collection Time Receive d Time (Source) Location / / Volume Laterality Blood 05/11/2019 6:29 PM 9 6:37 BATCH TRUCKER PM BATCH TRUCKER Unknown Provider LAB POCT ORDERABLES-MANUAL Performing Organization Address City/[facility]/ZIP [facility] [place]on e Number POC [facility] [address] [place] [address] [place] [address] [facility] [address] Glucose, POCT (05/11/2019 4:17 PM BATCH TRUCKER) Analysis Performed At Patho logist Time Signature Glucose, POCT, 112 70 - 140 05/11/2019 [facility] B mg/dL 4:19 PM BATCH TRUCKER Site Capillary 05/11/2019 PCL[facility] 4:19 PM BATCH TRUCKER Specimen Anatomical Collection Method Collection Time Receive d Time (Source) Location / / Volume Laterality Blood 05/11/2019 4:17 PM 9 4:20 BATCH TRUCKER PM BATCH TRUCKER Unknown Provider LAB POCT ORDERABLES-MANUAL Performing Organization Address City/[facility] Phon e Number POC [facility] [address] [place] [address] [place] [address] [facility] [address] Glucose, POCT (05/11/2019 2:18 PM BATCH TRUCKER) Analysis Performed At Patho logist Time Signature Glucose, POCT, 115 70 - 140 05/11/2019 [facility]CL[facility] B mg/dL 2:20 PM BATCH TRUCKER Site Capillary 05/11/2019 [facility] 2:20 PM BATCH TRUCKER Specimen Anatomical Collection Method Collection Time Receive d Time (Source) Location / / Volume Laterality Blood 05/11/2019 2:18 PM 9 2:20 BATCH TRUCKER PM BATCH TRUCKER Unknown Provider LAB POCT ORDERABLES-MANUAL Performing Organization Address City/[facility] Phon e Number POC [facility] [address] [place] [address] [place] [address] [facility] [address] (ABNORMAL) ACT (Activated Clotting Time), POCT (05/11/2019 1:46 PM BATCH TRUCKER) P athologist Signature Activated 296 (H) 84 - 139 05/11/2019 [facility] Clotting Time, sec 1:52 PM BATCH TRUCKER POCT Specimen Anatomical Collection Method Collection Time Receive d Time (Source) Location / / Volume Laterality Blood 05/11/2019 1:46 PM 9 1:52 BATCH TRUCKER PM BATCH TRUCKER Unknown Provider LAB POCT ORDERABLES - DEVICE Performing Organization Address City/[facility]/ZIP [facility] Phon e Number POC RST [facility] INPATIENT [address] [place], [place] [address] [place] [address] [facility] [address] (ABNORMAL) Glucose, POCT (05/11/2019 10:12 AM BATCH TRUCKER) athologist Signature Glucose, POCT, 160 (H) 70 - 140 05/11/2019 PCLX B mg/dL 10:41 AM BATCH TRUCKER Specimen Anatomical Collection Method Collection Time Receive d Time (Source) Location / / Volume Laterality Blood 05/11/2019 10:12 05/11/2019 AM BATCH TRUCKER 10:42 AM BATCH TRUCKER Unknown Provider LAB POCT ORDERABLES-MANUAL Performing Organization Address City/[facility] Phon e Number POC [facility] [address] [place] [address] [place] [address] [facility] [address] documented in this encounter Visit Diagnoses Diagnosis Atherosclerosis Of [place] Arteries Of Le ft Leg With Ulceration Of Unspecified Site (HCC) - Primary Atherosclerosis Of [place] Arteries Of Le ft Leg With Ulceration Of Unspecified Site (HCC) Atherosclerosis Of [place] Arteries Of Le ft Leg With Ulceration Of Unspecified Site (HCC) documented in this encounter Admitting Diagnoses Diagnosis Atherosclerosis Of [place] Arteries Of Le ft Leg With Ulceration Of Unspecified Site (HCC) documented in this encounter Administered Medications Inactive Administered Medications - up to 3 most recent administrations Medication Order MAR Action Action Date Dose Rate Site acetaminophen tablet 1,000 mg Given 05/11/2019 10:34 AM BATCH TRUCKER 1,00 0 mg (TYLENOL) 1,000 mg, oral, Once, On Tue05/11/19 at 1030, For 1 dose, Pre-Op acetaminophen tablet 1,000 mg (TYLENOL) Given 05/11/2019 4:38 PM BATCH TRUCKER 1,000 mg 1,000 mg, oral, Once as needed, other, If patient has not received in the previous 6 hours, Starting on Tue05/11/19 at 1015, For 1 dose, PACU (only), Oral unless RASS less than -1 or nausea/vomiting. Do not use if given in last 6 hours diazePAM tablet 5 mg (VALIUM) Given 05/11/2019 5:50 PM BATCH TRUCKER 5 mg 5 mg, oral, Once as needed, anxiety, muscle spasms, Agitation during bedrest, Starting on Tue05/11/19 at 1409, For 1 dose, Pre-Op electrolyte-A solution Continued from OR 05/11/2019 2:10 PM BATCH TRUCKER 20 mL/hr 20 mL/hr (PLASMA-LYTE A) 20 mL/hr, intravenous, Continuous, Starting on Tue05/11/19 at 1400, PACU & Post-Op heparin 10 Units/mL in NaCl 0.9% 500 mL flush Given 1:47 PM BATCH TRUCKER 100 mL solution miscellaneous, Once in surgery, OR use only, Starting on Tue05/11/19 at 1229, For 1 dose, Intra-Op, *Flush/Irrigation use only* insulin aspart U-100 Given 05/11/2019 10:13 AM BATCH TRUCKER 2 Units Right Lower Abdomen injection 0-8 [...] NaCl 0.9% Given 1 07/12/2018 1:49 PM BATCH TRUCKER 22 mL injection 300 mL, injection, Once in surgery, OR use only, Starting on Tue05/11/19 at 1229, For 1 dose, Intra-Op lidocaine-bupivacaine 1%-0.25% infiltration Given 05/11/2019 1:4 8 PM BATCH TRUCKER 10 mL injection 30 mL 30 mL, [...] 0.9% infusion New Bag 05/11/2019 10:28 AM BATCH TRUCKER 128 mL/hr 128 mL/hr 1-500 mL/hr, intravenous, Continuous, Starting on Tue05/11/19 at 1015, Pre-Op, 1.5 mL/kg/hr - Stop 1 hour prior to angio documented in this encounter Active and Recently Administered Medications Times are shown in BATCH TRUCKER. Scheduled Medication Order 05/09/2019 05/10/2019 05/11/2019 acetaminophen [...] (JUL Hold - Provider: Transfer Provider, Automatic)1845 ([facility] Unhold - Provider: Transfer Provider, Automatic)1850 ([facility] Hold - Provider: Transfer Provider, Automatic)2244 ([facility] Unhold - Provider: Discharge Provider, Automatic) 1 [...] Ph.D.)1345 (Stopped - Provider: Pam Kaur APRN, [facility]) 0.2-1.5 mcg/kg/hr ? 85.5 kg Dosing [...] (New Bag - Provider: Laila Kamara RJerad)184 ([facility] Hold - Provider: Transfer Provider, Automatic)184 ([facility] Unhold - Provider: Transfer Provider, Automatic)1850 ([facility] Hold - Provider: Transfer Provider, Automatic) 1-500 mL/hr, intravenous, Continuous, St arting on Tue05/11/19 at 1015, Pre-Op, 1.5 mL/kg/hr - Stop 1 hour prior to angio 2244 ([facility] Unhold - Provider: Discharge Provider, Automatic) phenylephrine 80 mcg/mL in NaCl 0.9% 250 mL infusion 1130 (Due)1843 ([facility] Hold - Provider: Transfer Provider, Automatic)1846 ([facility] Unhold - Provider: Transfer Provider, Automatic)1850 ([facility] Hold - Provider: Transfer Provider, Automatic)2244 ([facility] Unhold - Provider: Discharge Provider, Automatic) 0.5-1 [...] R.N.) 0-8 Units, subcutaneous, Every 2 hour IA N, high blood sugar, Nurse to determine [...]
--- OUTSIDE RECORDS SUMMARY | 2022-03-31 07:51 | XMS_ITS | Encounter Summary ---
:1950 Author Organization [facility] Address [address] [place] [address] Care Team Providers Name Role Phone Unavailable Primary Care Provider Unavailable Reason for Visit Outpatient (Routine) - Closed Specialty Diagnoses / Procedures Referred By Contact Refer red To Contact Vascular Surgery Kemar Velásquez, M.B.[place] [address] [place] [phone] Referral ID Status Reason Start Date Expiration Date Visits Requ ested Visits Authorized [id number] Closed 07/18/2018 07/18/2019 1 1 Encounter Details Date Type Department Care Team Description 05/04/2019 Office Visit Division of Vascular Kemar Velásquez, Athero sclerosis Of [place] and Endovascular M.B.B.S. Arteries Of Left Leg With Surgery in [address] Ulceration Of Unspecified [place], [place] Site (HCC) (Primary Dx) [address] [place] [address] [place], [place] [phone] (Work) [phone] Social History Tobacco Use Types Packs/Day Years [...] How often do you attend taoism or christianity services? Never 03/25/2021 Do you [...] or slept in a long-term (including now)? Education Answer Date Recorded What is the highest level of school Associate degree: migdalia muller, 04/30/2019 you have completed or the highest technical, or vocational p susan degree you have received? 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 - 05/04/2019 11:00 AM REPAIRER AND CHECKER Do not take Humalog (lispro) insulin morning of procedure. Follow instructions in Checklist for Surgical Patients regarding Lantus insulin based on your reporttime. OK to take all other regular morning medications on the morning of the procedure with sips of water. IRER AND CHECKER documented in this encounter Consult Notes Kemar [...] ongoing needs forreinterventions. DIAGNOSIS #1 Atherosclerosis Of [place] Arteries Of Left Leg With Ulceration Of Unspecified Site (HCC) Frankie ReneeB.S. IRER AND CHECKER documented in this encounter Plan of Treatment Not on filedocumented as of this encounter Results (ABNORMAL) Staphylococcus aureus Detection by Rapid PCR (05/04/2019 1:05 PM REPAIRER AND CHECKER) Component Value Ref Range Test Analysis Performed Pathologis t Method Time At Signature Staphylococcus Swab, Nares 05/05/2019 DTL aureus PCR 3:44 PM REPAIRER AND CHECKER Specimen Source Result Positive Not 05/05/2019 DTL (A) Applicable 3:44 PM REPAIRER AND CHECKER Comment: ----ADDITIONAL INFORMATION---- This test was developed and its performa nce characteristics determined by [facility] in a manner consistent with CLIA requirements. This test has not been cleared or approved by the [place] and Drug Administration. Specimen Anatomical Collection Method Collection Time Receive d Time (Source) Location / / Volume Laterality Varies (Nares) 05/04/2019 1:05 PM 019 1:39 REPAIRER AND CHECKER PM REPAIRER AND CHECKER Kemar Reyes LAB MICROBIOLOGY - GENERAL O RDERABLES Performing Organization Address City/State/ZIP Code Phon e Number [facility] - [address] [place], [place] [address] [facility] [place] [address] Laboratories-[facility] [address] documented in this encounter Visit Diagnoses Diagnosis Atherosclerosis Of [place] Arteries Of Le ft Leg With Ulceration Of Unspecified Site (HCC) - Primary documented in this encounter Additional Health Concerns Assessment Noted Time PHQ-9 Depression Total Score: 3 01/03/2018 10:38 AM CD T documented as of this encounter
--- OUTSIDE RECORDS SUMMARY | 2022-03-31 07:51 | XMS_ITS | Encounter Summary ---
:1950 Author Organization [facility] Address [address] [place] [address] Care Team Providers Name Role Phone Unavailable Primary Care Provider Unavailable Reason for Visit Reason Comments Med Refill Encounter Details Date Type Department Care Team Description 03/27/2019 Refill Department of Family Medicine, Bambi Adler Med Refill [facility], in Renee Phillips M.D. [place] [address] [place] [address] [place] [address] [phone] Social History Tobacco Use Types Packs/Day Years [...] How often do you attend zoroastrian or cheondoism services? 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 OPERATOR documented in this encounter Plan of Treatment Not on filedocumented as of this encounter Visit Diagnoses Not on filedocumented in this encounter Additional Health Concerns Assessment Noted Time PHQ-9 Depression Total Score: 3 01/03/2018 10:38 AM CD T documented as of this encounter
--- OUTSIDE RECORDS SUMMARY | 2022-03-31 07:51 | XMS_ITS | Encounter Summary ---
:1950 Author Organization [facility] Address [address] [place] [address] Care Team Providers Name Role Phone Unavailable Primary Care Provider Unavailable Reason for Visit Reason Comments Med Refill Encounter Details Date Type Department Care Team Description 02/04/2019 Refill Department of Neurology in Yessy Cohen M.D., Med Refill [place], [place] M[facility] [address] [facility] [address] [place] [address] [place] [phone] (Wo rk) Social History Tobacco Use Types [...] How often do you attend evangelical or roman catholic services? 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
--- OUTSIDE RECORDS SUMMARY | 2022-03-31 07:51 | XMS_ITS | Encounter Summary ---
:1950 Author Organization [facility] Address [address] [place] [address] Care Team Providers Name Role Phone Unavailable [...] How often do you attend congregational or sikh services? 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 documented in this encounter Results Lower Arterial-Vascular Image Exam (05/03/2019 9:55 AM FLAT CUTTER) Specimen (Source) Anatomical Collection Method Collection Time Re ceived Time Location / / Volume Laterality 05/03/2019 9:53 AM FLAT CUTTER Narrative [facility] - 05/03/2019 10:35 AM FLAT CUTTER This order has been created and auto-finalized [...]
--- OUTSIDE RECORDS SUMMARY | 2022-03-31 07:51 | XMS_ITS | Encounter Summary ---
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 Arteries Of Left [place], [place] [address] [facility] [place] [address] [place], [place] Unspecified Site (HCC) [phone] [id number] Social History Tobacco Use Types Packs/Day Years [...] How often do you attend congregational or mormon services? 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 documented as of this encounter Last Filed Vital Signs Vital Sign Reading Time Taken Comments Blood Pressure 128/71 05/11/2019 6:30 PM PHARMACY TECHNICIAN TRAINEE Pulse 77 05/11/2019 8:09 PM PHARMACY TECHNICIAN TRAINEE Temperature 36.6 ??C (97.9 ??F) 05/11/2019 2:10 PM PHARMACY TECHNICIAN TRAINEE Respiratory Rate 18 05/11/2019 8:09 PM PHARMACY TECHNICIAN TRAINEE Oxygen Saturation 93% 05/11/2019 8:09 PM PHARMACY TECHNICIAN TRAINEE Inhaled Oxygen Concentration - - Weight 85.5 kg (188 lb 7.9 oz) 05/11/2019 7:20 AM PHARMACY TECHNICIAN TRAINEE Height 175 cm (5' 8.9) 05/11/2019 7:20 AM PHARMACY TECHNICIAN TRAINEE Body Mass Index 27.92 05/11/2019 7:20 AM PHARMACY TECHNICIAN TRAINEE documented in this encounter Medications at Time [...] coordinated with Dr. Velásquez in 3-4 months. MACY TECHNICIAN TRAINEE documented in this encounter OR Notes Op [...] Primary * Betty Larkin M.D., M.P.H. - Supervisor Endless Track Vehicle * Kasey Herr M.D. - Supervisor Endless Track Vehicle Anesthesia Type Monitored anesthesia care Pre-operative Diagnosis Atherosclerosis Of [place] Arteries Of Left Leg With Ulceration Of Unspecified Site (HCC) Post-operative Diagnosis Atherosclerosis Of [place] Arteries Of Left Leg With Ulceration Of [...] Implant Name Type Inv. Item Serial No. Anesthesiology Faculty Lot No. LRB No. Used Action STNT INNOVA OTW [id number] - [id number] Vascular Stent STNT INNOVA OTW [id number] [employer] [id number] Left 1 Implanted Amy Renee MACY TECHNICIAN TRAINEE Brief Op Note - Betty Larkin M.D., M.P.H. - 05/11/2019 1:16 PM PHARMACY TECHNICIAN TRAINEE BRIEF OP NOTE Procedure(s) (LRB): IR ENDOVASCULAR ANGIOPLASTY STENT ILIAC LOWER EXTREMITY, right femoral access. (Left) Surgeon(s) and Role: * Kemar Velásquez M.B.B.S. - Primary * Betty Larkin M.D., M.P.H. - Supervisor Endless Track Vehicle * Kasey Herr M.D. - Supervisor Endless Track Vehicle Anesthesia Type Monitored anesthesia care Pre-operative Diagnosis Atherosclerosis Of [place] Arteries Of Left Leg With Ulceration Of Unspecified Site (HCC) Post-operative Diagnosis Atherosclerosis Of [place] Arteries Of Left Leg With Ulceration Of [...] Implant Name Type Inv. Item Serial No. Anesthesiology Faculty Lot No. LRB No. Used Action STNT INNOVA OTW [id number] - [id number] Vascular Stent STNT INNOVA OTW [id number] [employer] [id number] Left 1 Implanted LOWER EXTREMITY PVI Side [...] Vessels Treated? No Betty Larkin M.D., M.P.H. MACY TECHNICIAN TRAINEE documented in this encounter Plan of Treatment Pending Results Name Type Priority Associated Diagnoses Date/Ti me IR ENDOVASCULAR Imaging RAD - Routine Atherosclerosis Of 05/11 2:09 ANGIOPLASTY STENT (most inpatients [place] Arteries Of Left PM PHARMACY TECHNICIAN TRAINEE ILIAC LOWER and all Leg With Ulceration Of EXTREMITY outpatients) Unspecified Site (HCC) documented as of this encounter Procedures Procedure Name Priority Date/Time Associated Diagnosis Comme nts GLUCOSE POCT, B Routine 05/11/2019 6:29 Results f or PM PHARMACY TECHNICIAN TRAINEE this procedure are in the results section. GLUCOSE POCT, B Routine 05/11/2019 4:17 Results f or PM PHARMACY TECHNICIAN TRAINEE this procedure are in the results section. GLUCOSE POCT, B Routine 05/11/2019 2:18 Results f or PM PHARMACY TECHNICIAN TRAINEE this procedure are in the results section. IR ENDOVASCULAR RAD - Routine 05/11/2019 2:09 Atherosclerosis Of ANGIOPLASTY STENT (most inpatients PM PHARMACY TECHNICIAN TRAINEE [place] Arteries Of ILIAC LOWER and all Left Leg With EXTREMITY outpatients) Ulceration Of Unspecified Site (HCC) ACT, POCT, B Routine 05/11/2019 1:46 Results for PM PHARMACY TECHNICIAN TRAINEE this procedure are in the results section. ADULT OXYGEN Routine 05/11/2019 THERAPY 10:15 AM PHARMACY TECHNICIAN TRAINEE EXTUBATION Routine 05/11/2019 10:15 AM PHARMACY TECHNICIAN TRAINEE GLUCOSE POCT, B Routine 05/11/2019 Results for 10:12 AM PHARMACY TECHNICIAN TRAINEE this procedure are in the results section. documented in this encounter Results Glucose, POCT (05/11/2019 6:29 PM PHARMACY TECHNICIAN TRAINEE) Analysis Performed At Patho logist Time Signature Glucose, POCT, 119 70 - 140 05/11/2019 PCLX B mg/dL 6:37 PM PHARMACY TECHNICIAN TRAINEE Site Capillary 05/11/2019 PCLX 6:37 PM PHARMACY TECHNICIAN TRAINEE Specimen Anatomical Collection Method Collection Time Receive d Time (Source) Location / / Volume Laterality Blood 05/11/2019 6:29 PM 9 6:37 PHARMACY TECHNICIAN TRAINEE PM PHARMACY TECHNICIAN TRAINEE Unknown Provider LAB POCT ORDERABLES-MANUAL Performing Organization Address City/[facility] Phon e Number POC [facility] [address] [place] [address] [place] [address] [place] [facility] [address] [facility] Glucose, POCT (05/11/2019 4:17 PM PHARMACY TECHNICIAN TRAINEE) Analysis Performed At Patho logist Time Signature Glucose, POCT, 112 70 - 140 05/11/2019 [facility]CL[facility] B mg/dL 4:19 PM PHARMACY TECHNICIAN TRAINEE Site Capillary 05/11/2019 PCL[facility] 4:19 PM PHARMACY TECHNICIAN TRAINEE Specimen Anatomical Collection Method Collection Time Receive d Time (Source) Location / / Volume Laterality Blood 05/11/2019 4:17 PM 9 4:20 PHARMACY TECHNICIAN TRAINEE PM PHARMACY TECHNICIAN TRAINEE Unknown Provider LAB POCT ORDERABLES-MANUAL Performing Organization Address City/[facility] Phon e Number POC [facility] [address] [place] [address] [place] [address] [place] [facility] [address] [facility] Glucose, POCT (05/11/2019 2:18 PM PHARMACY TECHNICIAN TRAINEE) Analysis Performed At Patho logist Time Signature Glucose, POCT, 115 70 - 140 05/11/2019 [facility] B mg/dL 2:20 PM PHARMACY TECHNICIAN TRAINEE Site Capillary 05/11/2019 PCLX 2:20 PM PHARMACY TECHNICIAN TRAINEE Specimen Anatomical Collection Method Collection Time Receive d Time (Source) Location / / Volume Laterality Blood 05/11/2019 2:18 PM 9 2:20 PHARMACY TECHNICIAN TRAINEE PM PHARMACY TECHNICIAN TRAINEE Unknown Provider LAB POCT ORDERABLES-MANUAL Performing Organization Address City/[facility] Phon e Number POC [facility] [address] [place] [address] [place] [address] [place] [facility] [address] (ABNORMAL) ACT (Activated Clotting Time), POCT (05/11/2019 1:46 PM PHARMACY TECHNICIAN TRAINEE) P athologist Signature Activated 296 (H) 84 - 139 05/11/2019 PCSM Clotting Time, sec 1:52 PM PHARMACY TECHNICIAN TRAINEE POCT Specimen Anatomical Collection Method Collection Time Receive d Time (Source) Location / / Volume Laterality Blood 05/11/2019 1:46 PM 9 1:52 PHARMACY TECHNICIAN TRAINEE PM PHARMACY TECHNICIAN TRAINEE Unknown Provider LAB POCT ORDERABLES - DEVICE Performing Organization Address City/State/ZIP Code Phon e Number POC [facility] [address] [place], [place] [address] [place] [address] [place] [facility] [address] (ABNORMAL) Glucose, POCT (05/11/2019 10:12 AM PHARMACY TECHNICIAN TRAINEE) P athologist Signature Glucose, POCT, 160 (H) 70 - 140 05/11/2019 PCLX B mg/dL 10:41 AM PHARMACY TECHNICIAN TRAINEE Specimen Anatomical Collection Method Collection Time Receive d Time (Source) Location / / Volume Laterality Blood 05/11/2019 10:12 05/11/2019 AM PHARMACY TECHNICIAN TRAINEE 10:42 AM PHARMACY TECHNICIAN TRAINEE Unknown Provider LAB POCT ORDERABLES-MANUAL Performing Organization Address City/[facility] Phon e Number POC [facility] [address] [place] [address] [place] [address] [place] [facility] [address] documented in this encounter Visit Diagnoses Diagnosis Atherosclerosis Of [place] Arteries Of Le ft Leg With Ulceration Of Unspecified Site (HCC) - Primary Atherosclerosis Of [place] Arteries Of Le ft Leg With Ulceration Of Unspecified Site (HCC) documented in this encounter Admitting Diagnoses Diagnosis Atherosclerosis Of [place] Arteries Of Le ft Leg With Ulceration Of Unspecified Site (HCC) documented in this encounter Administered Medications Inactive Administered Medications - up to 3 most recent administrations Medication Order MAR Action Action Date Dose Rate Site acetaminophen tablet 1,000 mg Given 05/11/2019 10:34 AM PHARMACY TECHNICIAN TRAINEE 1,00 0 mg (TYLENOL) 1,000 mg, oral, Once, On Tue05/11/19 at 1030, For 1 dose, Pre-Op acetaminophen tablet 1,000 mg (TYLENOL) Given 05/11/2019 4:38 PM PHARMACY TECHNICIAN TRAINEE 1,000 mg 1,000 mg, oral, Once as needed, other, If patient has not received in the previous 6 hours, Starting on Tue05/11/19 at 1015, For 1 dose, PACU (only), Oral unless RASS less than -1 or nausea/vomiting. Do not use if given in last 6 hours diazePAM tablet 5 mg (VALIUM) Given 05/11/2019 5:50 PM PHARMACY TECHNICIAN TRAINEE 5 mg 5 mg, oral, Once as needed, anxiety, muscle spasms, Agitation during bedrest, Starting on Tue05/11/19 at 1409, For 1 dose, Pre-Op electrolyte-A solution Continued from OR 05/11/2019 2:10 PM PHARMACY TECHNICIAN TRAINEE 20 mL/hr 20 mL/hr (PLASMA-LYTE A) 20 mL/hr, intravenous, Continuous, Starting on Tue05/11/19 at 1400, PACU & Post-Op insulin aspart U-100 Given 05/11/2019 10:13 AM PHARMACY TECHNICIAN TRAINEE 2 Units Right Lower Abdomen injection 0-8 [...] 0.9% infusion New Bag 05/11/2019 10:28 AM PHARMACY TECHNICIAN TRAINEE 128 mL/hr 128 mL/hr 1-500 mL/hr, intravenous, Continuous, Starting on Tue05/11/19 at 1015, Pre-Op, 1.5 mL/kg/hr - Stop 1 hour prior to angio documented in this encounter Active and Recently Administered Medications Times are shown in PHARMACY TECHNICIAN TRAINEE. Scheduled Medication Order 05/09/2019 05/10/2019 05/11/2019 acetaminophen [...] % nasal ointment 1 application (BACTROBAN) 1843 ([facility] Hold - Provider: Transfer Provider, Automatic)1846 ([facility] Unhold - Provider: Transfer Provider, Automatic)1850 ([facility] Hold - Provider: Transfer Provider, Automatic)2244 ([facility] Unhold - Provider: Discharge Provider, Automatic) 1 [...] Ph.D.)1345 (Stopped - Provider: Pam Kaur APRN, [facility]) 0.2-1.5 mcg/kg/hr ? 85.5 kg Dosing weight [...] (New Bag - Provider: Laila Kamara RJerad)1843 ([facility] Hold - Provider: Transfer Provider, Automatic)1846 ([facility] Unhold - Provider: Transfer Provider, Automatic)1850 ([facility] Hold - Provider: Transfer Provider, Automatic) 1-500 mL/hr, intravenous, Continuous, St arting on Tue05/11/19 at 1015, Pre-Op, 1.5 mL/kg/hr - Stop 1 hour prior to angio 2244 ([facility] Unhold - Provider: Discharge Provider, Automatic) phenylephrine 80 mcg/mL in NaCl 0.9% 250 mL infusion 1130 (Due)1843 ([facility] Hold - Provider: Transfer Provider, Automatic)1846 ([facility] Unhold - Provider: Transfer Provider, Automatic)1850 ([facility] Hold - Provider: Transfer Provider, Automatic)2244 ([facility] Unhold - Provider: Discharge Provider, Automatic) 0.5-1 mcg/kg/min ? 85.5 kg (32.0625-64.125 mL/hr, rounded to 32.1-64.1 mL/hr), intravenous, at 32.1-64.1 mL/hr, Continuous, Starting Tue05/11/19 at 1130, Premix ba mg in 250 mL, Patient Type: Sta ndard, initiate at: 0.5 mcg/kg/min., Tit rate at: 0.1 mcg/kg/min. every 5 min., Goal: MAP 60-80 PRN Medication Order 05/09/2019 05/10/2019 05/11/2019 acetaminophen tablet 1,000 mg (TYLENOL) (COMPLETED) 1636 (Given - Provider: Mallika Gleason RFeiNFei) 1,000 [...] aspart U-100 injection 0-8 Units (NovoLOG FlexPen) ([facility]) 1013 (Given - Provider: Laila Kamara RFeiNFei) 0-8 Units, subcutaneous, Every 2 hour OK N, high blood sugar, Nurse to determine [...]
--- OUTSIDE RECORDS SUMMARY | 2022-03-31 07:51 | XMS_ITS | Encounter Summary ---
:1950 Author Organization [facility] Address [address] [place] [address] Care Team Providers Name Role Phone Unavailable Primary Care Provider Unavailable Encounter Details Date Type Department Care Team Description 12/21/2018 Orders Only [facility] P[facility] MNT Ruthie Montero iabetes Mellitus Type 2 Renee means With Diabetic N danny Brock Hyperglycemic (HCC) [address] [place] [address] Social History Tobacco Use Types [...] How often do you attend mosque or buddhist services? 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
--- OUTSIDE RECORDS SUMMARY | 2022-03-31 07:51 | XMS_ITS | Encounter Summary ---
:1950 Author Organization [facility] Address [address] [place] [address] Care Team Providers Name Role Phone Unavailable Primary Care Provider Unavailable Reason for Visit Reason Comments Med Refill Encounter Details Date Type Department Care Team Description 12/25/2018 Refill Department of Family Medicine, Bambi Adler Med Refill [facility], in Renee Phillips M.D. [place] [address] [place] [address] [place] [address] [phone] Social History Tobacco Use Types Packs/Day Years [...] How often do you attend anabaptist or anabaptist services? 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
--- OUTSIDE RECORDS SUMMARY | 2022-03-31 07:51 | XMS_ITS | Encounter Summary ---
:1950 Author Organization [facility] Address [address] [place] [address] Care Team Providers Name Role Phone Unavailable Primary Care Provider Unavailable Encounter Details Date Type Department Care Team Description 05/04/2019 Hospital Encounter Department of Kemar Velásquez Atheros clerosis Of Laboratory Medicine M.B.B.S. [place] Arteries Of Left and Pathology, [address] [facility] Leg With Ulceration Of [facility], in [place], [place] Unspeci fied Site (HCC) [facility] [address] [place] [phone] [address] [facility] (Work) [place], [place] [phone] [address] (Fax) [phone] Social History Tobacco Use Types Packs/Day Years [...] How often do you attend yazidi or mandaeism services? 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 Male 03/24/2021 8:13 PM PYROGLAZER documented as of this encounter Medications at [...] Atherosclerosis Of Results for this PCR PM PYROGLAZER [place] Arteries Of procedure are in Left Leg With the results Ulceration Of section. Unspecified Site (HCC) MRSA CULTURE Routine 05/04/2019 1:04 Results for this PM PYROGLAZER procedure are i n the results section. documented in this encounter Results (ABNORMAL) Staphylococcus aureus Detection by Rapid PCR (05/04/2019 1:05 PM PYROGLAZER) Component Value Ref Range Test Analysis Performed Pathologis t Method Time At Signature Staphylococcus Swab, Nares 05/05/2019 DTL aureus PCR 3:44 PM PYROGLAZER Specimen Source Result Positive Not 05/05/2019 DTL (A) Applicable 3:44 PM PYROGLAZER Comment: ----ADDITIONAL INFORMATION---- This test was developed and its performa nce characteristics determined by [facility] in a manner consistent with CLIA requirements. This test has not been cleared or approved by the [place] and Drug Administration. Specimen Anatomical Collection Method Collection Time Receive d Time (Source) Location / / Volume Laterality Varies (Nares) 05/04/2019 1:05 PM 019 1:39 PYROGLAZER PM PYROGLAZER Kemar Redman.S. LAB MICROBIOLOGY - GENERAL O RDRKBLES Performing Organization Address City/[facility]/ZIP [facility] [place] [facility] Ph[place] Number [facility] - [address] MRSA Culture (05/04/2019 1:04 PM PYROGLAZER) Analysis Performed At [facility] Time Signature MRSA Culture No growth 05/06/2019 DTL of MRSA 2:03 PM PYROGLAZER Specimen Anatomical Collection Method Collection Time Receive d Time (Source) Location / / Volume Laterality Nares 05/04/2019 1:04 PM 9 2:49 PYROGLAZER PM PYROGLAZER Comment: Specimen Source Site: SWAB Kemar MerchantS. LAB MICROBIOLOGY - GENERAL O OMERO Performing Organization Address City/[facility]/ZIP [facility] [place] Phon e Number [facility] [address] documented in this encounter Visit Diagnoses Diagnosis Atherosclerosis Of [place] Arteries Of Le ft Leg With Ulceration Of Unspecified Site (HCC) documented in this encounter Additional Health Concerns Assessment Noted Time PHQ-9 Depression Total Score: 3 01/03/2018 10:38 AM CD T documented as of this encounter
--- OUTSIDE RECORDS SUMMARY | 2022-03-31 07:51 | XMS_ITS | Encounter Summary ---
:[address] [facility] Address [address] [place] [address] Care Team Providers Name Role Phone Unavailable Primary Care Provider Unavailable Reason for Visit Reason Onset Date Comments Med Refill 05/14/2019 Encounter Details Date Type Department Care Team Description 05/14/2019 Refill Department of Family Medicine, Bambi Adler Med Refill [facility] Renee Phillips M.D. [place] [id number] [place] [address] [place] [address] [phone] Social History Tobacco Use Types Packs/Day Years [...] How often do you attend sikh or judaism services? 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
--- OUTSIDE RECORDS SUMMARY | 2022-03-31 07:51 | XMS_ITS | Encounter Summary ---
:1950 Author Organization [facility] Address [address] [place] [address] Care Team Providers Name Role Phone Unavailable Primary Care Provider Unavailable Encounter Details Date Type Department Care Team Description 04/19/2019 Clinical Communication [facility] [place] [address] [place] [phone] Social History Tobacco Use Types Packs/Day Years [...] How often do you attend temple or samaritan services? 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
--- OUTSIDE RECORDS SUMMARY | 2022-03-31 07:51 | XMS_ITS | Encounter Summary ---
:1950 Author Organization [facility] Address [address] [place] [address] Care Team Providers Name Role Phone Unavailable Primary Care Provider Unavailable Reason for Visit Reason Comments Med Refill Encounter Details Date Type Department Care Team Description 03/07/2019 Refill Department of Family Medicine, Bambi Adler Med Refill [facility], in Renee Phillips M.D. [place] [address] [place] [address] [place] [address] [phone] Social History Tobacco Use Types Packs/Day Years [...] How often do you attend yarsanism or mandaen services? 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 Male 03/24/2021 8:13 PM BELT SANDER documented as of this encounter Plan of Treatment Not on filedocumented as of this encounter Visit Diagnoses Not on filedocumented in this encounter Additional Health Concerns Assessment Noted Time PHQ-9 Depression Total Score: 3 01/03/2018 10:38 AM CD T documented as of this encounter
--- OUTSIDE RECORDS SUMMARY | 2022-03-31 07:51 | XMS_ITS | Encounter Summary ---
:1950 Author Organization [facility] Address [address] [place] [address] Care Team Providers Name Role Phone Elsewhere, Pcp Primary Care Provider Unavailable Encounter Details Date Type Department Care Team Description 04/19/2019 Orders Only Department of Ruthie Diabetes M gautam Type 2 Community Internal Renee means, With Othe r Circulatory Medicine in [place] Hernandez Complication [place] [address] Hyperglycemic (HCC) [address] [place], [place] (Primary Dx) ANGIE HERNANDEZ [phone] Social History Tobacco Use Types Packs/Day Years [...] How often do you attend pentecostalism or congregation services? 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 documented as of this encounter Plan of Treatment Not on filedocumented as of this encounter Visit Diagnoses Diagnosis Diabetes Mellitus Type 2 With Other Circ ulatory Complication Hyperglycemic (HCC) - Primary documented in this encounter Additional Health Concerns Infection Onset Date Last Indicated Resolved Time COVID19 Pending 05/08/2020 05/08/2020 05/08/2020 2:44 PM STRIP CUTTING MACHINE OPERATOR Assessment Noted Time PHQ-9 Depression Total Score: 3 01/03/2018 10:38 AM CD T documented as of this encounter Care Teams Pigskin Trimmer Relationship Specialty Start Date End Date Elsewhere, Pcp PCP - General Family Medicine 01/29/20 documented as of this encounter
--- OUTSIDE RECORDS SUMMARY | 2022-03-31 07:51 | XMS_ITS | Encounter Summary ---
:1950 Author Organization [facility] Address [address] [place] [address] Care Team Providers Name Role Phone Unavailable Primary Care Provider Unavailable Reason for Visit Reason Comments Med Refill Encounter Details Date Type Department Care Team Description 03/29/2019 Refill Department of Family Medicine, Bambi Adler Med Refill [facility], in Renee Phillips M.D. [place] [address] [place] [address] [place] [address] [phone] Social History Tobacco Use Types Packs/Day Years [...] How often do you attend latter-day or restorationism services? 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
--- OUTSIDE RECORDS SUMMARY | 2022-03-31 07:51 | XMS_ITS | Encounter Summary ---
:1950 Author Organization [facility] Address [address] [place] [address] Care Team Providers Name Role Phone Unavailable Primary Care Provider Unavailable Reason for Visit Auth/Cert Specialty Diagnoses / Procedures Referred By Contact Refer red To Contact Diagnoses Atherosclerosis Of [place] Arteries Of Left Leg With Ulceration Of Unspecified Site (HCC) Atherosclerosis Of [place] Arteries Of Left Leg With Ulceration Of Unspecified Site (HCC) [I70.249] Procedures NE REVASC OPN/PERC ILIAC W STENT IR ENDOVASCULAR ANGIOPLASTY STENT ILIAC LOWER EXTREMITY right femoral access Referral ID Status Reason Start Date Expiration Date Visits Requ ested Visits Authorized [id number] 1 1 Encounter Details Date Type Department Care Team Description 05/11/2019 Anesthesia Event RST ROMB MAIN OR Edmundo Cuevas, [address] [facility] [place] [address] [address] [facility] [phone] [place] [phone] (Wo rk) Anesthesia Record Procedure Summary Procedure [...] h andoff to the receiving staff during [facility] ch we 1. Identified the patient [...] 02/03 1418 by Bilateral; Emi Cotto PRM [facility] linmakayla-Backgroun NONADH 2X3 (x2); 02/03/21 R.NSamia schrader [...] 1418 by Left; 02/03/21 (Removed Martina Morales, [facility] by background completion Jourdan, R.N. jaret, Kuliza utility); 1418 (Removed Automate d Batch Job [...] How often do you attend spiritism or yazdanism services? 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 Male 03/24/2021 8:13 PM COLLABORATING SUPERVISING PHYSICIAN documented as of this encounter OR Notes Anesthesia Postprocedure Evaluation - Aubree Hollis M.D. - 05/11/2019 5:35 PM CST Patient: Onesimo Walton Procedure Summary Date: 05/11/19 Room / Location: [facility] 801 ROMB 7359 / [facility] in [place], [place] Anesthesia Start: 1244 Anesthesia Stop: 1415 Procedure: IR ENDOVASCULAR ANGIOPLASTY STENT ILIAC LOWER EXTREMITY, right femoral access. (Left Groin) Diagnosis: Atherosclerosis Of [place] Arteries Of Left Leg With Ulceration Of Unspecified Site (HCC) (Atherosclerosis Of [place] Arteries Of Left Leg With Ulceration Of [...] Post Op nausea/vomiting: none Hydration status: euvolemic ABORATING SUPERVISING PHYSICIAN Anesthesia Preprocedure Evaluation - Edmundo Cuevas M.D. - 05/11/2019 11:18 AM CST Preprocedure Anesthesia & H&P Assessment Procedure Summary Date/Time: 05/11/19 1126 Procedure: IR ENDOVASCULAR ANGIOPLASTY STENT ILIAC LOWER EXTREMITY, right femoral access. (Left ) Diagnosis: Atherosclerosis Of [place] Arteries Of Left Leg With Ulceration Of Unspecified Site (HCC)[I70.249] Pre-op diagnosis: Atherosclerosis Of [place] Arteries Of Left Leg With Ulceration Of Unspecified Site (HCC) [I70.249]. Location: [place] [address] ROMB 4885 / [facility] in [place], [place] Provider: Kemar Velásquez M.B.BFeiSFei Pertinent components [...] (HCC) (+) Hyperlipidemia Other (+) Atherosclerosis Of [place] Ar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 (HCC) (+) Atherosclerosis Of [place] Arteries Of Left Leg With Ulceration Of [...] with patient /legal guardian or through an educational sign language interpreter. The use of blood products not discussed Approval to Proceed: approved for anesthesia 69M w/ h/o PVD, HTN, CKD, DMII on plavix, metop succ presenting ror endovascular stent of left iliac. Will plan MAC. ABORATING SUPERVISING PHYSICIAN documented in this encounter Plan of Treatment Not on filedocumented as of this encounter Visit Diagnoses Not on filedocumented in this encounter Administered Medications Inactive Administered Medications - up to 3 most recent administrations Medication Order MAR Action Action Date Dose Rate Site ceFAZolin injection 2 g (ANCEF) Given 05/11/2019 1:04 PM COLLABORATING SUPERVISING PHYSICIAN 2 g 2 g, intravenous, Once, On [...] mL/hr in NaCl 0.9% 100 mL PM COLLABORATING SUPERVISING PHYSICIAN infusion (PRECEDEX) 0.2-1.5 mcg/kg/hr ? 85.5 kg [...] care unit New Bag 05/11/2019 12:50 PM COLLABORATING SUPERVISING PHYSICIAN 0.3 mcg/kg/hr 6.41 mL/hr electrolyte-A solution (PLASMA-LYTE A) New Bag 05/11/2019 12:48 PM COLLABORATING SUPERVISING PHYSICIAN intravenous, Continuous Infusion: Per Instructions PRN, Starting on Tue05/11/19 at 1248, Anesthesia Intra-op fentaNYL injection (SUBLIMAZE) Given 05/11/2019 12:53 PM COLLABORATING SUPERVISING PHYSICIAN 50 mcg intravenous, As needed, Starting on Tue05/11/19 at 1253, Anesthesia Intra-op heparin (porcine) 1,000 unit/mL Given 05/11/2019 1:37 PM COLLABORATING SUPERVISING PHYSICIAN 9,0 00 Units injection As needed, Starting on Tue05/11/19 at 1337, Anesthesia Intra-op ketamine injection (KETALAR) Given 05/11/2019 12:55 PM COLLABORATING SUPERVISING PHYSICIAN 10 mg intravenous, As needed, Starting on Tue05/11/19 at 1255, Anesthesia Intra-op midazolam (PF) injection (VERSED) Given 05/11/2019 12:53 PM COLLABORATING SUPERVISING PHYSICIAN 1 mg As needed, Starting on Tue05/11/19 at 1253, Anesthesia Intra-op propofol 10 mg/mL infusion Rate/Dose 05/11/2019 1:24 25 mcg/kg/min 1 2.8 mL/hr (DIPRIVAN) Change PM COLLABORATING SUPERVISING PHYSICIAN intravenous, Continuous Infusion: Per Instructions PRN, Starting on Tue05/11/19 at 1250, Anesthesia Intra-op Rate/Dose Change 05/11/2019 12:57 PM COLLABORATING SUPERVISING PHYSICIAN 75 mcg/kg/min 38.5 mL/hr New Bag 05/11/2019 12:50 PM COLLABORATING SUPERVISING PHYSICIAN 50 mcg/kg/min 25.7 mL/hr propofol injection (DIPRIVAN) Given 05/11/2019 12:50 PM COLLABORATING SUPERVISING PHYSICIAN 50 mg intravenous, As needed, Starting on Tue05/11/19 at 1250, Anesthesia Intra-op protamine injection Given 05/11/2019 1:50 PM COLLABORATING SUPERVISING PHYSICIAN 15 mg As needed, Starting on Tue05/11/19 at 1348, Anesthesia Intra-op Given 05/11/2019 1:48 PM COLLABORATING SUPERVISING PHYSICIAN 5 mg documented in this encounter Additional Health Concerns Assessment Noted Time PHQ-9 Depression Total Score: 3 01/03/2018 10:38 AM CD T documented as of this encounter
--- OUTSIDE RECORDS SUMMARY | 2022-03-31 07:51 | XMS_ITS | Encounter Summary ---
:1950 Author Organization [facility] Address [address] [place] [address] Care Team Providers Name Role Phone Unavailable Primary Care Provider Unavailable Encounter Details Date Type Department Care Team Description 05/03/2019 Hospital Encounter Department of Kemar Velásquez, Katherine ral Arterial Disease (HCC); Radiology, Santiago Reyes Atherosclerosis Of Solomon Arteries Of Le ft Leg With Ulceration Of Unspecified Site (HCC); Building, in [address] [place] [address] Atherosclerosis Of [place] Arteries Of Ex tremities With Intermittent Claudication Right Leg (HCC) [facility] [phone] [place] [address] [place], [place] (Work) [phone] Social History Tobacco Use Types Packs/Day Years [...] How often do you attend buddhism or lutheran services? 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 SUPERVISOR ROUGH END documented as of this encounter Medications at [...] for this ARTERIES LEFT (most inpatients AM SUPERVISOR ROUGH END Disease (HCC) procedure are in WITH DOPPLER and all Atherosclerosis Of the resul ts outpatients) Solomon Arteries Of section. Left Leg With Ulceration Of Unspecified Site (HCC) Atherosclerosis Of [place] Ar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 (HCC) documented in this encounter Results US Aorta Iliac Arteries Left with Doppler (05/03/2019 8:04 AM SUPERVISOR ROUGH END) Anatomical Region Laterality Modality Abdomen, Pelvis, Ultrasound RST LOS, Ultrasound ARZ LOS, Lef t Ultrasound Ultrasound FLA LOS, Procedural Specimen (Source) Anatomical Collection Method Collection Time Re ceived Time Location / / Volume Laterality 05/03/2019 8:53 AM SUPERVISOR ROUGH END Impressions 05/03/2019 9:35 AM SUPERVISOR ROUGH END 1. Progression in high-grade stenosis of the distal left external iliac artery. 2. Stable elevated velocities in the lef t common iliac artery stent suggestive of moderate stent stenosis. Narrative 05/03/2019 9:35 AM SUPERVISOR ROUGH END EXAM: US AORTA ILIAC ARTERIES LEFT WITH [...] Diagnosis Peripheral Arterial Disease (HCC) Atherosclerosis Of [place] Arteries Of Le ft Leg With Ulceration Of Unspecified Site (HCC) Atherosclerosis Of [place] Arteries Of Ex tremities With Intermittent Claudication Right Leg (HCC) documented in this encounter Additional Health Concerns Assessment Noted Time PHQ-9 Depression Total Score: 3 01/03/2018 10:38 AM CD T documented as of this encounter
--- OUTSIDE RECORDS SUMMARY | 2022-03-31 07:51 | XMS_ITS | Encounter Summary ---
:1950 Author Organization [facility] Address [address] [place] [address] Care Team Providers Name Role Phone Unavailable Primary Care Provider Unavailable Reason for Visit Reason Onset Date Comments Med Refill 06/01/2019 Encounter Details Date Type Department Care Team Description 06/01/2019 Refill Department of Family Medicine, Bambi Adler, Med Refill [facility], al Renee Phillips M.D. [place] [address] [place] [address] [place] [address] [phone] Social History Tobacco Use Types Packs/Day Years [...] week 03/25/2021 How often do you attend jehovah's witness or mormon services? Never 03/25/2021 Do you belong to any clubs or organizations such as jehovah's witness N o 03/25/2021 groups, unions, fraternal or [...] at Date Recorded Male 03/24/2021 8:13 PM ROOMS DIRECTOR documented as of this encounter Plan of Treatment Not on filedocumented as of this encounter Visit Diagnoses Not on filedocumented in this encounter Additional Health Concerns Assessment Noted Time PHQ-9 Depression Total Score: 3 01/03/2018 10:38 AM CD T documented as of this encounter
--- OUTSIDE RECORDS SUMMARY | 2022-03-31 07:52 | XMS_ITS | Encounter Summary ---
:1950 Author Organization [facility] Address [address] [place] [address] Care Team Providers Name Role Phone Unavailable Primary Care Provider Unavailable Reason for Visit Reason Comments Restless legs Last visit 02/16/18 Appointment Request (Routine) - Closed Specialty Diagnoses / Procedures Referred By Contact Refer red To Contact Neurology Referral ID Status Reason Start Date Expiration Date Visits Requ ested Visits Authorized [id number] Closed 02/16/2018 02/16/2019 1 1 Encounter Details Date Type Department Care Team Description 04/21/2018 Office Visit Department of Yessy Cohen, Restless L eg Syndrome (Primary Dx); Neurology in [place]., M.P.H. Neuropathy Peripheral [place], [place] [address] [place] [address] [phone] Social History Tobacco Use Types Packs/Day Years [...] How often do you attend moravian or jainism services? 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 Male 03/24/2021 8:13 PM CANARY RAISER documented as of this encounter Last Filed Vital Signs Vital Sign Reading Time Taken Comments Blood Pressure 125/73 04/21/2018 2:04 PM CANARY RAISER Pulse 68 04/21/2018 2:00 PM CANARY RAISER Temperature - - Respiratory Rate - - Oxygen Saturation - - Inhaled Oxygen Concentration - - Weight 82.6 kg (182 lb 1.6 oz) 04/21/2018 2:00 PM CANARY RAISER Height - - Body Mass Index 27.47 04/18/2018 9:19 AM CANARY RAISER documented in this encounter Progress Notes Yessy [...] pain. Patient has a pain specialist in [place]. Past Medical History: Diagnosis Date ??? Bruit [...] mm balloon; Surgeon: Kemar Velásquez M.B.B.S.; Location: [facility] ROMB OR ??? ARTHROSCOPIC REPAIR OF [...] popliteal and /or tibial artery angioplasty/stent Notes: [id number] ??? ENDOVASCULAR ILIAC AND/OR FEMORAL AND/OR POPLITEAL AND /OR TIBIAL ARTERY ANGIOPLASTY/STENT Right08/31/2017 Endovascular iliac and/or femoral and/or popliteal and /or tibial artery angioplasty/stent Notes: [id number] ??? FEMORAL ARTERY STENT Right 08/31/2017 ??? FEMORAL ENDARTERECTOMY, PATCH ANGIOPLASTY/INTERPOSITION GRAFT WITH/WITHOUT PROFUNDOPLASTY Left 04/04/2017 Femoral endarterectomy, patch angioplasty/interposition graft with/without profundoplasty Notes: [id number] ??? NM SESTAMIBI W/DOBUTAMINE 1 DA postive [...] Rash itchy ??? Pregabalin Anaphylaxis swell ??? Evhoyfg-Wik-Mnq Reductase Inhibitors Myalgia Family History Problem Relation [...] is retired. 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 OBJECTIVE Vitals: 04/21/18 1404 BP: 125/73 Pulse: PHYSICAL EXAM COGNITION: Alert and oriented x 4. CRANIAL NERVES: ecd II-XII intact and symmetric. MOTOR: Full strength [...] was 30 min 20 in counseling. Yessy Cohen M.D., M.P.H. Answers for HPI/ROS [...] Yes Difficulty urinating: Yes Erectile dysfunction: Yes RY RAISER documented in this encounter Plan of Treatment Not on filedocumented as of this encounter Visit Diagnoses Diagnosis Restless Leg Syndrome - Primary Neuropathy Peripheral documented in this encounter Additional Health Concerns Assessment Noted Time PHQ-9 Depression Total Score: 3 01/03/2018 10:38 AM CD T documented as of this encounter
--- OUTSIDE RECORDS SUMMARY | 2022-03-31 07:52 | XMS_ITS | Encounter Summary ---
:1950 Author Organization [facility] Address [address] [place] [address] Care Team Providers Name Role Phone Unavailable [...] How often do you attend episcopal or jewish services? 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 TECHNICAL DESIGNER documented as of this encounter Plan of Treatment Not on filedocumented as of this encounter Procedures Procedure Name Priority Date/Time Associated Diagnosis Comme nts VASCULAR IMAGE EXAM Routine 07/18/2018 12:10 PM R esults for this TECHNICAL DESIGNER procedure are i n the results section. documented in this encounter Results Lower Arterial-Vascular Image Exam (07/18/2018 12:10 PM TECHNICAL DESIGNER) Specimen (Source) Anatomical Collection Method Collection Time Re ceived Time Location / / Volume Laterality 07/18/2018 12:07 PM TECHNICAL DESIGNER Narrative [facility] - 07/18/2018 12:28 PM TECHNICAL DESIGNER This order has been created and auto-finalized [...]
--- OUTSIDE RECORDS SUMMARY | 2022-03-31 07:52 | XMS_ITS | Encounter Summary ---
:1950 Author Organization [facility] Address [address] [place] [address] Care Team Providers Name Role Phone Unavailable Primary Care Provider Unavailable Reason for Referral Outpatient (Routine) - Closed Specialty Diagnoses / Procedures Referred By Contact Refer red To Contact Diagnoses Atherosclerosis Of [place] Ar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 (HCC) Atherosclerosis Of [place] Arteries Of Left Leg With Ulceration Of Unspecified Site (HCC) Kemar Velásquez M.B.B.S. [facility] Procedures Lower Extremity Arterial (MIMI) - TCPO2 (Wound) FL STUDY EXT ARTERY > 2 LVLS TRAVIS [address] [place] [address] Referral ID Status Reason Start Date Expiration Date Visits Requ ested Visits Authorized [id number] Closed 06/09/2018 06/09/2019 1 1 BASE DEVELOPER Reason for Visit Outpatient (Routine) - Closed Specialty Diagnoses / Procedures Referred By Contact Refer red To Contact Diagnoses Atherosclerosis Of [place] Ar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 (HCC) Atherosclerosis Of [place] Arteries Of Left Leg With Ulceration Of Unspecified Site (HCC) Kemar Velásquez M.B.B.S. [facility] Procedures Lower Extremity Arterial (MIMI) - TCPO2 (Wound) FL STUDY EXT ARTERY > 2 LVLS TRAVIS [address] [place], [place] [address] Referral ID Status Reason Start Date Expiration Date Visits Requ ested Visits Authorized [id number] Closed 06/09/2018 06/09/2019 1 1 Encounter Details Date Type Department Care Team Description 07/18/2018 Hospital Encounter Department of Kemar Velásquez Atheros clerosis Of [place] Ar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 (HCC); Vascular Medicine M.BFeiBFeiS. Atherosclerosis Of [place] Arteries Of Le ft Leg With Ulceration Of Unspecified Site (HCC) in [place] [address] [address] [place], [place] [address] [facility] [address] [place], [place] [phone] [address] (Work) [phone] Social History Tobacco Use Types Packs/Day Years [...] How often do you attend buddhist or scientologist services? 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 Male 03/24/2021 8:13 PM DATABASE DEVELOPER documented as of this encounter Medications [...] Takes actually 15units TID with meals lancets [facility] Dispense item 0 [...] sults for this ARTERIAL (MIMI) - PM DATABASE DEVELOPER [place] Arteries Of lui mcfarlane are in TCPO2 (WOUND) Extremities With the result s Intermittent section. Claudication Right Leg (HCC) Atherosclerosis Of [place] Arteries Of Left Leg With Ulceration Of Unspecified Site (HCC) documented in this encounter Results Lower Extremity Arterial (MIMI) - TCPO2 (Wound) (07/18/2018 12:51 PM DATABASE DEVELOPER) Anatomical Region Laterality Modality Other Specimen (Source) Anatomical Collection Method Collection Time Re ceived Time Location / / Volume Laterality 07/18/2018 12:07 PM DATABASE DEVELOPER Narrative 07/18/2018 12:07 PM DATABASE DEVELOPER Right: Doppler Waveforms: ? Normal at all [...] this encounter Visit Diagnoses Diagnosis Atherosclerosis Of [place] Arteries Of Ex tremities With Intermittent Claudication Right Leg (HCC) Atherosclerosis Of [place] Arteries Of Le ft Leg With Ulceration Of Unspecified Site (HCC) documented in this encounter Additional Health Concerns Assessment Noted Time PHQ-9 Depression Total Score: 3 01/03/2018 10:38 AM CD T documented as of this encounter
--- OUTSIDE RECORDS SUMMARY | 2022-03-31 07:52 | XMS_ITS | Encounter Summary ---
:1950 Author Organization [facility] Address [address] [place] [address] Care Team Providers Name Role Phone Unavailable Primary Care Provider Unavailable Encounter Details Date Type Department Care Team Description 07/14/2018 Clinical Communication [facility] [place] [facility] [place] [address] [facility] [place] [address] [phone] Social History Tobacco Use Types Packs/Day Years [...] How often do you attend congregational or yazidi services? 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 Current Can Nursing/Provider leave a detailed message: yes Did the patient refuse triage through Nurse line? (for symptom based concerns) NA Action Needed: Please call back Name of Medication (if relevant): Insulin MOTOR ENGINEER documented in this encounter Plan of Treatment Not on filedocumented as of this encounter Visit Diagnoses Not on filedocumented in this encounter Additional Health Concerns Assessment Noted Time PHQ-9 Depression Total Score: 3 01/03/2018 10:38 AM CD T documented as of this encounter
--- OUTSIDE RECORDS SUMMARY | 2022-03-31 07:52 | XMS_ITS | Encounter Summary ---
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 [address] [place] [phone] Referral ID Status Reason Start Date Expiration Date Visits Requ ested Visits Authorized [id number] Closed 04/24/2018 04/24/2019 1 1 CCO DRIER OPERATOR Reason for Visit Reason Comments Follow-up A1C result and L wrist Outpatient (Routine) - Closed Specialty Diagnoses / Procedures Referred By Contact Refer red To Contact Family Medicine Diagnoses Diabetes Mellitus Type 2 With Diabetic Neuropathy Hyperglycemic (HCC) SHIVA Catalan SE ANGIE Duran M.D. [address] [place] [address] Referral ID Status Reason Start Date Expiration Date Visits Requ ested Visits Authorized [id number] Closed 04/21/2018 04/21/2019 1 1 Encounter Details Date Type Department Care Team Description 04/24/2018 Office Visit Department of Family Lina Gtz etelizabeth Mellitus Type 2 With Diabetic Neuropathy Hyperglycemic (HCC) (Primary Dx); Medicine, Renee Snider, Perfecto Wr ist Right; Clinic, in [place] Screening Colon Cancer Average Risk; [place] [address] Need Vaccine Immunization [address] [place], [place] [phone] Social History Tobacco Use Types Packs/Day Years [...] How often do you attend lutheran or christian services? 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 TOBACCO DRIER OPERATOR documented as of this encounter Last Filed Vital Signs Vital Sign Reading Time Taken Comments Blood Pressure 110/64 04/24/2018 9:10 AM TOBACCO DRIER OPERATOR Pulse 68 04/24/2018 9:10 AM TOBACCO DRIER OPERATOR Temperature 36 ??C (96.8 ??F) 04/24/2018 9:10 AM TOBACCO DRIER OPERATOR Respiratory Rate - - Oxygen Saturation - - Inhaled Oxygen Concentration - - Weight 84 kg (185 lb 3 oz) 04/24/2018 9:10 AM TOBACCO DRIER OPERATOR Height - - Body Mass Index 27.94 04/18/2018 9:19 AM TOBACCO DRIER OPERATOR documented in this encounter Progress Notes [...] Rash itchy ??? Pregabalin Anaphylaxis swell ??? Mzstekj-Mfw-Gun Reductase Inhibitors Myalgia PAST MEDICAL / SURGICAL [...] popliteal and /or tibial artery angioplasty/stent Notes: [id number] ??? ENDOVASCULAR ILIAC AND/OR FEMORAL AND/OR POPLITEAL AND /OR TIBIAL ARTERY ANGIOPLASTY/STENT Right08/31/2017 Endovascular iliac and/or femoral and/or popliteal and /or tibial artery angioplasty/stent Notes: [id number] ??? FEMORAL ARTERY STENT Right 08/31/2017 ??? FEMORAL ENDARTERECTOMY, PATCH ANGIOPLASTY/INTERPOSITION GRAFT WITH/WITHOUT PROFUNDOPLASTY Left 04/04/2017 Femoral endarterectomy, patch angioplasty/interposition graft with/without profundoplasty Notes: [id number] ??? NM SESTAMIBI W/DOBUTAMINE 1 DA postive [...] an appointment with Irma Zacarias CNP, our healthcare educator. #2 Pain Wrist Right PLAN: Recommended [...] behalf by Juju Ibarra, a trained medical psychotherapist. The creation of this record is based on the scribe's personal observations and the provider's statements to them. This document has been ch ecked and approved by the attending provider. CCO DRIER OPERATOR documented in this encounter Plan [...]
--- OUTSIDE RECORDS SUMMARY | 2022-03-31 07:52 | XMS_ITS | Encounter Summary ---
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 Dispense item 0 08/23/2014 10/23/201 9 covered [...] sults for ARTERIES LEFT (most inpatients PM CONFERENCE COORDINATOR [place] Arteries Of this procedure WITH DOPPLER and all Extremities With are in the outpatients) Intermittent results Claudication Right section. Leg (HCC) Atherosclerosis Of [place] Arteries Of Left Leg With Ulceration Of Unspecified Site (HCC) documented in this encounter Results US Aorta Inferior Vena Cava Iliac Left with Doppler (07/18/2018 12:09 PM CONFERENCE COORDINATOR) Anatomical Region Laterality Modality Abdomen, Pelvis, Ultrasound RST LOS, Ultrasound ARZ LOS, Lef t Ultrasound Ultrasound FLA LOS Specimen (Source) Anatomical Collection Method Collection Time Re ceived Time Location / / Volume Laterality 07/18/2018 12:25 PM CONFERENCE COORDINATOR Impressions 07/18/2018 3:36 PM CONFERENCE COORDINATOR IMPRESSION: ?? 1. New high velocities in the stented le ft common iliac artery stent suggestive of stenosis. 2. Left external iliac artery stenosis. 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
--- OUTSIDE RECORDS SUMMARY | 2022-03-31 07:52 | XMS_ITS | Encounter Summary ---
:1950 Author Organization [facility] Address [address] [place] [address] Care Team Providers Name Role Phone Unavailable Primary Care Provider Unavailable Reason for Visit Auth/Cert Specialty Diagnoses / Procedures Referred By Contact Refer red To Contact Diagnoses Peripheral Arterial Disease (HCC) Procedures NJ REVASC OPN/PERC ILIAC W STENT NJ REVASC ILIAC ARTY STNT ANGPLST NJ ANGIOGRAPHY EXT UNILAT S&I NJ US GUIDE VASC ACCESS IR ENDOVASCULAR ANGIOPLASTY STENT ILIAC LOWER EXTREMITY; right femoral access Referral ID Status Reason Start Date Expiration Date Visits Requ ested Visits Authorized [id number] 1 1 Encounter Details Date Type Department Care Team Description 04/18/2018 Anesthesia Event RST ROMB FRAN OR Lawrence Allen, [address] [facility] [place] [address] [address] [facility] [phone] [place] [phone] (Wo rk) Anesthesia Record Procedure Summary Procedure [...] h andoff to the receiving staff during [facility] we 1. Identified the patient 2. [...] Eric J, APRN, Catheter Size: 20 G; GENERAL INTERN Orientation: Right; Location: Antecubital; Site Prep: Chlorhexidine (Preferred); Removal Date: 04/18/18; Removal Time: 1157 (RETIRED) Incision 04/18/18; 1139; Groin; 04/18/18 1139 by 02/03 1418 by Bilateral; HAO PRM WNEmi Pace, [facility] [email or web address] NONADH 2X3 (x2); 02/03/21 Samia Carvajal (Removed by background Automated Batch Job completion utility); 1418 (Removed by background completion utility) Peripheral IV Placement Date: 04/18/18; 04/18/18 1156 by 04/18 1958 by Placement Time: 1156; Lawrence Sanford APRN, Hill, Kelsie J, R.N. Catheter Size: 20 G; GENERAL INTERN Orientation: Right; Location: Hand; Removal Date: 04/18/18; [...] How often do you attend temple or mormon services? 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 - 04/18/2018 3:52 PM CST Patient: Onesimo Walton Procedure Summary Date: 04/18/18 Room / Location: [address] / [employer] in [place], [place] Anesthesia Start: 1127 Anesthesia Stop: 1506 [...] Post Op nausea/vomiting: none Hydration status: euvolemic ER PATCHER Anesthesia Preprocedure Evaluation - Lawrence Allen M.D. [...] patient / legal guardian, or through an interpreter and translator; patient evaluated and approved for anesthesia / sedation. Use of blood products discussed with patient who consented to blood products. ER PATCHER documented in this encounter Plan of Treatment Not on filedocumented as of this encounter Visit Diagnoses Not on filedocumented in this encounter Administered Medications Inactive Administered Medications - up to 3 most recent administrations Medication Order MAR Action Action Date Dose Rate Site ceFAZolin injection 2,000 mg Given 04/18/2018 11:58 AM VENEER PATCHER 1 g (ANCEF) 2,000 mg (rounded from [...] Indications: Prophylaxis, surgical Given 04/18/2018 11:50 AM VENEER PATCHER 2 g electrolyte-A solution (PLASMA-LYTE A) New Bag 04/18/2018 2:20 PM VENEER PATCHER intravenous, Continuous Infusion: Per Instructions PRN, Starting on Tue04/18/18 at 1130, Anesthesia Intra-op New Bag 04/18/2018 11:30 AM VENEER PATCHER fentaNYL injection (SUBLIMAZE) Given 04/18/2018 12:48 PM VENEER PATCHER 25 mcg intravenous, As needed, severe pain or score 7-10 of 10, Starting on Tue04/18/18 at 1141, Anesthesia Intra-op Given 04/18/2018 11:56 AM VENEER PATCHER 25 mcg Given 04/18/2018 11:41 AM VENEER PATCHER 50 mcg heparin (porcine) 1,000 unit/mL Given 04/18/2018 12:57 PM VENEER PATCHER 2, 000 Units injection As needed, Starting on Tue04/18/18 at 1207, Anesthesia Intra-op Given 04/18/2018 12:07 PM VENEER PATCHER 5,000 Units lactated ringers New Bag 04/18/2018 2:20 PM VENEER PATCHER intravenous, Continuous Infusion: Per Instructions PRN, Starting on Tue04/18/18 at 1130, Anesthesia Intra-op lidocaine (PF) (cardiac) injection Given 04/18/2018 11:33 AM VENEER PATCHER 40 mg intravenous, As needed, Starting on Tue04/18/18 at 1133, Anesthesia Intra-op midazolam (PF) injection (VERSED) Given 04/18/2018 11:56 AM VENEER PATCHER 1 mg As needed, Starting on Tue04/18/18 at 1140, Anesthesia Intra-op Given 04/18/2018 11:40 AM VENEER PATCHER 1 mg ondansetron (PF) injection (ZOFRAN) Given 04/18/2018 2:18 PM VENEER PATCHER 4 mg intravenous, As needed, nausea, vomiting, Starting on Tue04/18/18 at 1418, Anesthesia Intra-op phenylephrine injection Given 04/18/2018 2:20 PM VENEER PATCHER 200 mcg As needed, Starting on Tue04/18/18 at 1156, Anesthesia Intra-op Given 04/18/2018 1:25 PM VENEER PATCHER 200 mcg Given 04/18/2018 12:58 PM VENEER PATCHER 200 mcg propofol 10 mg/mL infusion Rate/Dose 04/18/2018 10 mcg/kg/min 4.76 m L/hr (DIPRIVAN) Change 12:03 PM VENEER PATCHER intravenous, Continuous Infusion: Per Instructions PRN, Starting on Tue04/18/18 at 1135, Anesthesia Intra-op Rate/Dose Change 04/18/2018 11:57 AM VENEER PATCHER 25 mcg/kg/min 11.9 mL/hr New Bag 04/18/2018 11:35 AM VENEER PATCHER 50 mcg/kg/min 23.8 mL/hr propofol injection (DIPRIVAN) Given 04/18/2018 11:56 AM VENEER PATCHER 20 mg intravenous, As needed, Starting on Tue04/18/18 at 1156, Anesthesia Intra-op protamine injection Given 04/18/2018 2:16 PM VENEER PATCHER 20 mg As needed, Starting on Tue04/18/18 at 1411, Anesthesia Intra-op Given 04/18/2018 2:14 PM VENEER PATCHER 15 mg Given 04/18/2018 2:11 PM VENEER PATCHER 5 mg documented in this encounter Additional Health Concerns Assessment Noted Time PHQ-9 Depression Total Score: 3 01/03/2018 10:38 AM CD T documented as of this encounter
--- OUTSIDE RECORDS SUMMARY | 2022-03-31 07:52 | XMS_ITS | Encounter Summary ---
:1950 Author Organization [facility] Address [address] [place] [address] Care Team Providers Name Role Phone Unavailable Primary Care Provider Unavailable Reason for Visit Reason Comments Diabetes A1C elevated to 8.3 Outpatient (Routine) - Closed Specialty Diagnoses / Procedures Referred By Contact Refer red To Contact Family Medicine Diagnoses Diabetes Mellitus Type 2 With Diabetic Neuropathy Hyperglycemic (HCC) SHIVA Catalan [facility] Demetri Duran M.D. [address] [place] [address] Referral ID Status Reason Start Date Expiration Date Visits Requ ested Visits Authorized [id number] Closed 04/24/2018 04/24/2019 1 1 Encounter Details Date Type Department Care Team Description 05/01/2018 Comprehensive Visit Department of Irma Zacarias erm Use Of Insulin Active (HCC) (Primary Dx); Family Medicine, J, APIGEE DEVELOPER, Diabetes Me llitus Type 2 With Diabetic Neuropathy Hyperglycemic (HCC) [facility], C.N.P. in [place], [address] [phone] Social History Tobacco Use [...] How often do you attend sabianism or faith services? Never 03/25/2021 Do you [...] or slept in a fpc (including now)? 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 8:13 PM DIRECTOR OF VOLUNTEER SERVICES documented as of this encounter Last Filed Vital Signs Vital Sign Reading Time Taken Comments Blood Pressure 147/70 05/01/2018 10:35 AM DIRECTOR OF VOLUNTEER SERVICES Pulse 74 05/01/2018 10:29 AM DIRECTOR OF VOLUNTEER SERVICES Temperature 36.5 ??C (97.7 ??F) 05/01/2018 10:29 AM DIRECTOR OF VOLUNTEER SERVICES Respiratory Rate 16 05/01/2018 10:29 AM DIRECTOR OF VOLUNTEER SERVICES Oxygen Saturation - - Inhaled Oxygen Concentration - - Weight 84.5 kg (186 lb 6.4 oz) 05/01/2018 10:29 AM DIRECTOR OF VOLUNTEER SERVICES Height - - Body Mass Index 28.12 04/18/2018 9:19 AM DIRECTOR OF VOLUNTEER SERVICES documented in this encounter Patient Instructions Patient InstructionsIrma Zacarias APRN, C.N.P. - 05/01/2018 11:00 AM DIRECTOR OF VOLUNTEER SERVICES Take Humalog insulin before meals. CTOR OF VOLUNTEER SERVICES AttachmentsThe following attachments cannot be sent through Care Everywhere. Basic Guidelines for Diabetes Meal Planning (Bermudian)documented in this encounter Progress Notes Irma Zacarias [...] Rash itchy ??? Pregabalin Anaphylaxis swell ??? 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 If fasting blood sugars in the morning remain [id number] increase Lantus to 42 units daily. Start taking Humalog insulin right before eating 3 times daily. He will call with blood sugars in a week and we will continue to adjust insulin as needed. [id number] in 3 months. Schedule dilated eye exam. [...] HEALTH MAINTENANCE: Due for dilated eye exam. 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
--- OUTSIDE RECORDS SUMMARY | 2022-03-31 07:52 | XMS_ITS | Encounter Summary ---
:1950 Author Organization [facility] Address [address] [place] [address] Care Team Providers Name Role Phone Unavailable Primary Care Provider Unavailable Reason for Visit Reason Comments Med Refill Encounter Details Date Type Department Care Team Description 11/20/2018 Refill Department of Family Medicine, Bambi Adler Med Refill [facility], in [place] M.D. [place] [address] [place] [address] [place] [address] [phone] Social History Tobacco Use Types Packs/Day Years [...] How often do you attend rastafarian or yazdanism services? 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
--- OUTSIDE RECORDS SUMMARY | 2022-03-31 07:52 | XMS_ITS | Encounter Summary ---
:1950 Author Organization [facility] Address [address] [place] [address] Care Team Providers Name Role Phone Unavailable Primary Care Provider Unavailable Reason for Visit Reason Comments Med Refill Encounter Details Date Type Department Care Team Description 10/24/2018 Refill Department of Family Medicine, Bambi Adler Med Refill [facility], in [place] M.D. [place] [address] [place] [address] [place] [address] [phone] Social History Tobacco Use Types Packs/Day Years [...] How often do you attend restorationist or holiness services? 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 Male 03/24/2021 8:13 PM SOFTWARE INTERN documented as of this encounter Plan of Treatment Not on filedocumented as of this encounter Visit Diagnoses Not on filedocumented in this encounter Additional Health Concerns Assessment Noted Time PHQ-9 Depression Total Score: 3 01/03/2018 10:38 AM CD T documented as of this encounter
--- OUTSIDE RECORDS SUMMARY | 2022-03-31 07:52 | XMS_ITS | Encounter Summary ---
:1950 Author Organization [facility] Address [address] [place] [address] Care Team Providers Name Role Phone Unavailable [...] at Date Recorded Male 03/24/2021 8:13 PM BARREL LINE OPERATOR documented as of this encounter Plan of Treatment Not on filedocumented as of this encounter Procedures Procedure Name Priority Date/Time Associated Diagnosis Comme nts VASCULAR SURGERY Routine 04/18/2018 10:10 AM Resu lts for this IMAGE EXAM BARREL LINE OPERATOR procedure are i n the results section. documented in this encounter Results VASCULAR SURGERY IMAGE EXAM (04/18/2018 10:10 AM BARREL LINE OPERATOR) Specimen (Source) Anatomical Collection Method Collection Time Re ceived Time Location / / Volume Laterality 04/18/2018 10:09 AM BARREL LINE OPERATOR Narrative [facility] - 04/18/2018 12:36 PM BARREL LINE OPERATOR This order has been created and auto-finalized to support the import of images acquired without order. The clini ammy documentation to support these images can be found on the encounter dioni t produced images. Provider Not In System IMG NON RAD IMAGING PROCEDUR ES Performing Organization Address City/State/ZIP Code Phon e Number IIOH IIOH NA documented in this encounter Visit Diagnoses Not on filedocumented in this encounter Additional Health Concerns Assessment Noted Time PHQ-9 Depression Total Score: 3 01/03/2018 10:38 AM CD T documented as of this encounter
--- OUTSIDE RECORDS SUMMARY | 2022-03-31 07:52 | XMS_ITS | Encounter Summary ---
:1950 Author Organization [facility] Address [address] [place] [address] Care Team Providers Name Role Phone Unavailable Primary Care Provider Unavailable Reason for Visit Reason Onset Date Comments deductible met 04/20/2018 Encounter Details Date Type Department Care Team Description 04/20/2018 [facility] Medicine, Renee [place], [place], in [place] [address] [place] [phone] Social History Tobacco Use Types Packs/Day [...] How often do you attend druze or samaritan services? 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 WHEELS AND AXLES INSPECTOR Telephone Encounter - Renee Catalan M.D. - 04/24/2018 5:29 PM RAILROAD WHEELS AND AXLES INSPECTOR We discussed colon cancer screening today. He would like to have that done but we need to clarify Plavix use. ROAD WHEELS AND AXLES INSPECTOR Telephone Encounter - Maxi Strong - 04/20/2018 11:21 AM CST Reason for Communication: Pt calling to set up lab work. Pt says that he has met his deductible for the year- wondering if there was anything else Dr Duran would think to have done- before the end of the year. Noted that there was another order in [facility],but he thought he had that done in [place]. Current Can Nursing/Provider leave a detailed message: yes Did the patient refuse triage through Nurse line? (for symptom based concerns)not offered Action Needed: please call Name of Medication (if relevant): ROAD WHEELS AND AXLES INSPECTOR documented in this encounter Plan of Treatment Not on filedocumented as of this encounter Visit Diagnoses Not on filedocumented in this encounter Additional Health Concerns Assessment Noted Time PHQ-9 Depression Total Score: 3 01/03/2018 10:38 AM CD T documented as of this encounter
--- OUTSIDE RECORDS SUMMARY | 2022-03-31 07:52 | XMS_ITS | Encounter Summary ---
:1950 Author Organization [facility] Address [address] [place] [address] Care Team Providers Name Role Phone Unavailable Primary Care Provider Unavailable Reason for Visit Reason Comments Med Refill Encounter Details Date Type Department Care Team Description 07/25/2018 Refill Department of Family Medicine, Fredrick Benitez M.D. Med Refill [facility], in [address] [place] [phone] [place] [address] [place], [place] [address] [phone] Social History Tobacco Use Types Packs/Day Years [...] How often do you attend episcopal or gnosticism services? 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
--- OUTSIDE RECORDS SUMMARY | 2022-03-31 07:52 | XMS_ITS | Encounter Summary ---
:1950 Author Organization [facility] Address [address] [place] [address] Care Team Providers Name Role Phone Unavailable Primary Care Provider Unavailable Reason for Visit Reason Comments Wrist Pain left Outpatient (Routine) - Closed Specialty Diagnoses / Procedures Referred By Referred To Contact Contact Physical Medicine and Diagnoses Diabetes Mellitus Type 2 With Diabetic Neuropathy Hyperglycemic (HCC) [facility] Renee preston M.D. [address] [place] [address] Referral ID Status Reason Start Date Expiration Date Visits Requ ested Visits Authorized [id number] Closed 04/24/2018 04/24/2019 1 1 Encounter Details Date Type Department Care Team Description 04/26/2018 Comprehensive Visit Department of Smith Petersen Arthri tis Wrist (Primary Dx); Physical Medicine and [place]. [place] [address] [place], [place] [phone] Social History Tobacco Use Types Packs/Day Years [...] How often do you attend baptism or yazidi services? 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 documented as of this encounter Last Filed Vital Signs Vital Sign Reading Time Taken Comments Blood Pressure 125/71 04/26/2018 9:25 AM MARINE DESIGN ENGINEER Pulse 67 04/26/2018 9:25 AM MARINE DESIGN ENGINEER Temperature 36.8 ??C (98.2 ??F) 04/26/2018 9:25 AM MARINE DESIGN ENGINEER Respiratory Rate - - Oxygen Saturation - - Inhaled Oxygen Concentration - - Weight 84.9 kg (187 lb 2.7 oz) 04/26/2018 9:25 AM MARINE DESIGN ENGINEER Height - - Body Mass Index 28.24 04/18/2018 9:19 AM MARINE DESIGN ENGINEER documented in this encounter Patient Instructions Patient [...] __ Follow-up clinic appointment __ Scheduling desk NE DESIGN ENGINEER documented in this encounter Consult Notes Smith [...] mm balloon; Surgeon: Kemar Velásquez M.B.B.SFei; Location: [facility] OR ??? ARTHROSCOPIC REPAIR OF [...] popliteal and /or tibial artery angioplasty/stent Notes: [id number] ??? ENDOVASCULAR ILIAC AND/OR FEMORAL AND/OR POPLITEAL AND /OR TIBIAL ARTERY ANGIOPLASTY/STENT Right08/31/2017 Endovascular iliac and/or femoral and/or popliteal and /or tibial artery angioplasty/stent Notes: [id number] ??? FEMORAL ARTERY STENT Right 08/31/2017 ??? FEMORAL ENDARTERECTOMY, PATCH ANGIOPLASTY/INTERPOSITION GRAFT WITH/WITHOUT PROFUNDOPLASTY Left 04/04/2017 Femoral endarterectomy, patch angioplasty/interposition graft with/without profundoplasty Notes: [id number] ??? NM SESTAMIBI W/DOBUTAMINE 1 DA postive [...] is retired. 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 Family History Problem Relation [...] would be appropriate. Smith Petersen DO, CAQSM Shipping Team Leader Custodian Blood Bank Physical Medicine & Rehabilitation NE DESIGN ENGINEER documented in this encounter Plan of Treatment Not on filedocumented as of this encounter Visit Diagnoses Diagnosis Arthritis Wrist - Primary Pain Wrist Left documented in this encounter Additional Health Concerns Assessment Noted Time PHQ-9 Depression Total Score: 3 01/03/2018 10:38 AM CD T documented as of this encounter
--- OUTSIDE RECORDS SUMMARY | 2022-03-31 07:52 | XMS_ITS | Encounter Summary ---
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 [facility] Procedures Lower Extremity Arterial (MIMI) - TCPO2 (Wound) CA STUDY EXT ARTERY > 2 LVLS RODRÍGUEZ [address] [place] [address] Referral ID Status Reason Start Date Expiration Date Visits Requ ested Visits Authorized [id number] Closed 07/18/2018 07/18/2019 1 1 OR MANUFACTURING SUPERVISOR Outpatient (Routine) - Closed Specialty Diagnoses / Procedures Referred By Contact Refer red To Contact Vascular Surgery Kemar Velásquez M.B.B. [facility] [place] [facility] [address] [place] [address] Referral ID Status Reason Start Date Expiration Date Visits Requ ested Visits Authorized [id number] Closed 07/18/2018 07/18/2019 1 1 OR MANUFACTURING SUPERVISOR Reason for Visit Outpatient (Routine) - Closed Specialty Diagnoses / Procedures Referred By Contact Refer red To Contact Vascular Surgery Diagnoses . Kemar Velásquez M.B.B.S. [facility] [address] [place] [phone] Referral ID Status Reason Start Date Expiration Date Visits Requ nicolled Visits Authorized [id number] Closed 06/09/2018 06/09/2019 1 1 Encounter Details Date Type Department Care Team Description 07/18/2018 Office Visit Division of Vascular Keamr Velásquez Periph eracarline Arterial Disease (HCC) (Primary Dx); and Endovascular M.B.B.S. Atherosclerosis Of [place] Arteries Of Le ft Leg With Ulceration Of Unspecified Site (HCC); Surgery in [address] Atherosclerosis Of [place] Arteries Of Ex tremities With Intermittent Claudication Right Leg (HCC) [place], [place] [address] [place] [address] [place], [place] [phone] (Work) [phone] Social History Tobacco Use Types Packs/Day Years [...] How often do you attend sabianist or orthodoxy services? 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 DIAGNOSIS peripheral arterial disease Frankie ReneeB.S. OR MANUFACTURING SUPERVISOR documented in this encounter Miscellaneous Notes Addendum Note - Daly Lawrence RFeiN. - 07/18/2018 2:20 PM SENIOR MANUFACTURING SUPERVISOR Addended by: DALY LAWRENCE on: 07/18/2018 03:59 PM Modules accepted: Orders OR MANUFACTURING SUPERVISOR documented in this encounter Plan of Treatment Scheduled Referrals Name Type Priority Associated Diagnoses Order S chedule Vascular Surgery Outpatient Referral Routine Expe cted: office visit 01/18/2019 (clinic) (Approximate), Expires: 07/18/2021 documented as of this encounter Results Lower Extremity Arterial (MIMI) - TCPO2 (Wound) (05/03/2019 11:13 AM SENIOR MANUFACTURING SUPERVISOR) Anatomical Region Laterality Modality Other Specimen (Source) Anatomical Collection Method Collection Time Re ceived Time Location / / Volume Laterality 05/03/2019 9:53 AM SENIOR MANUFACTURING SUPERVISOR Narrative 05/03/2019 9:53 AM SENIOR MANUFACTURING SUPERVISOR Right: Doppler Waveforms: ? Normal at all [...] Lower Extremity Arteries Bilateral (05/03/2019 8:44 AM SENIOR MANUFACTURING SUPERVISOR) Anatomical Region Laterality Modality Lower Extremity, Ultrasound RST LOS, Ultrasound ARZ LOS, Rodríguez ateral Ultrasound Ultrasound FLA LOS, Procedural Specimen (Source) Anatomical Collection Method Collection Time Re ceived Time Location / / Volume Laterality 05/03/2019 9:35 AM SENIOR MANUFACTURING SUPERVISOR Impressions 05/03/2019 9:42 AM SENIOR MANUFACTURING SUPERVISOR 1. Stable mild right common femoral artery [...] GINA jose nosis. Narrative 05/03/2019 9:42 AM SENIOR MANUFACTURING SUPERVISOR EXAM: US LOWER EXTREMITY ARTERIES BILATERAL Exam performed with color and spectral D oppler analysis. 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 Stable mild elevation in [facility] in the profunda femoral artery (182 [...] stenosis. 4. Stable moderate left proximal GINA ojse nosis. Kemar Reyes IMG US PROCEDURES US Aorta Iliac Arteries Left with Doppler (05/03/2019 8:04 AM SENIOR MANUFACTURING SUPERVISOR) Anatomical Region Laterality Modality Abdomen, Pelvis, Ultrasound RST LOS, Ultrasound ARZ LOS, Lef t Ultrasound Ultrasound FLA LOS, Procedural Specimen (Source) Anatomical Collection Method Collection Time Re ceived Time Location / / Volume Laterality 05/03/2019 8:53 AM SENIOR MANUFACTURING SUPERVISOR Impressions 05/03/2019 9:35 AM SENIOR MANUFACTURING SUPERVISOR 1. Progression in high-grade stenosis of the distal left external iliac artery. 2. Stable elevated velocities in the lef t common iliac artery stent suggestive of moderate stent stenosis. Narrative 05/03/2019 9:35 AM SENIOR MANUFACTURING SUPERVISOR EXAM: US AORTA ILIAC ARTERIES LEFT WITH [...] suggestive of moderate stent stenosis. Kemar DavidB.SFei [facility] US PROCEDURES documented in this encounter Visit Diagnoses Diagnosis Peripheral Arterial Disease (HCC) - Prim dat Atherosclerosis Of [place] Arteries Of Le ft Leg With Ulceration Of Unspecified Site (HCC) Atherosclerosis Of [place] Arteries Of Ex tremities With Intermittent Claudication Right Leg (HCC) Peripheral Arterial Disease (HCC) - Prim dat Atherosclerosis Of [place] Arteries Of Le ft Leg With Ulceration Of Unspecified Site (HCC) Atherosclerosis Of [place] Arteries Of Ex tremities With Intermittent Claudication Right Leg (HCC) Peripheral Arterial Disease (HCC) Atherosclerosis Of [place] Arteries Of Le ft Leg With Ulceration Of Unspecified Site (HCC) Atherosclerosis Of [place] Arteries Of Ex tremities With Intermittent Claudication Right Leg (HCC) Peripheral Arterial Disease (HCC) Atherosclerosis Of [place] Arteries Of Le ft Leg With Ulceration Of Unspecified Site (HCC) Atherosclerosis Of [place] Arteries Of Ex tremities With Intermittent Claudication Right Leg (HCC) documented in this encounter Additional Health Concerns Assessment Noted Time PHQ-9 Depression Total Score: 3 01/03/2018 10:38 AM CD T documented as of this encounter
--- OUTSIDE RECORDS SUMMARY | 2022-03-31 07:52 | XMS_ITS | Encounter Summary ---
:1950 Author Organization [facility] Address [address] [place] [address] Care Team Providers Name Role Phone Unavailable Primary Care Provider Unavailable Reason for Visit Reason Comments Med Refill Encounter Details Date Type Department Care Team Description 07/13/2018 Refill Department of Family Medicine, Bambi Adler Med Refill [facility], in Renee Phillips M.D. [place] [address] [place] [address] [place] [address] [phone] Social History Tobacco Use Types Packs/Day Years [...] How often do you attend yazidism or church services? 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 Name of medication: Humalog Kwikpen Strength: 100 unit/ml Frequency: Inject 10 units under the skin 3 times a day with meals Quantity: 15 Last Refill: 05/17/2018 Pharmacy: Jinny Phillips STITCH BINDER documented in this encounter Plan of Treatment Not on filedocumented as of this encounter Visit Diagnoses Not on filedocumented in this encounter Additional Health Concerns Assessment Noted Time PHQ-9 Depression Total Score: 3 01/03/2018 10:38 AM CD T documented as of this encounter
--- OUTSIDE RECORDS SUMMARY | 2022-03-31 07:52 | XMS_ITS | Encounter Summary ---
:1950 Author Organization [facility] Address [address] [place] [address] Care Team Providers Name Role Phone Unavailable Primary Care Provider Unavailable Encounter Details Date Type Department Care Team Description 04/21/2018 Orders Only Department of Neurology in Yessy Cohen M.D., [place], [place] [facility] [address] [place] [address] [place] [phone] (Wo rk) Social History Tobacco Use [...] How often do you attend alevism or adventism services? 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
--- OUTSIDE RECORDS SUMMARY | 2022-03-31 07:52 | XMS_ITS | Encounter Summary ---
:1950 Author Organization [facility] Address [address] [place] [address] Care Team Providers Name Role Phone Unavailable Primary Care Provider Unavailable Encounter Details Date Type Department Care Team Description 07/18/2018 Hospital Encounter Department of Kemar Velásquez Atheros clerosis Of [place] Ar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 (HCC); Radiology, Santiago Reyes Atherosclerosis Of [place] Arteries Of Le ft Leg With Ulceration Of Unspecified Site (HCC) Building, in [address] [place] [phone] [place] [address] [place], [place] (Work) [address] [phone] Social History Tobacco Use Types Packs/Day Years [...] How often do you attend jain or adventism services? 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 1. New right common femoral [...] w ithout stenosis. Narrative 07/18/2018 3:03 PM COMMERCIAL CONSTRUCTION ESTIMATOR EXAM: US LOWER EXTREMITY ARTERIES BILATERAL Exam [...] this encounter Visit Diagnoses Diagnosis Atherosclerosis Of [place] Arteries Of Ex tremities With Intermittent Claudication Right Leg (HCC) Atherosclerosis Of [place] Arteries Of Le ft Leg With Ulceration Of Unspecified Site (HCC) documented in this encounter Additional Health Concerns Assessment Noted Time PHQ-9 Depression Total Score: 3 01/03/2018 10:38 AM CD T documented as of this encounter
--- OUTSIDE RECORDS SUMMARY | 2022-03-31 07:52 | XMS_ITS | Encounter Summary ---
:1950 Author Organization [facility] Address [address] [place] [address] Care Team Providers Name Role Phone Unavailable Primary Care Provider Unavailable Encounter Details Date Type Department Care Team Description 04/21/2018 Hospital Encounter Department of [facility] es Mellitus Laboratory Medicine Renee beth, Type 2 (HCC) in [place] [id number] [address] [phone] Social History Tobacco Use Types Packs/Day Years [...] How often do you attend temple or jain services? 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 Male 03/24/2021 8:13 PM NATURAL FABRICATOR documented as of this encounter Medications at [...] (three) times a day with meals. lancets [facility] Dispense item 0 08/23/2014 9 covered by [...] 1:54 PM Diabetes Mellitus Results for this NATURAL FABRICATOR Type 2 (HCC) procedure are i n the results section. documented in this encounter Results (ABNORMAL) Hemoglobin A1c (04/21/2018 1:54 PM NATURAL FABRICATOR) P athologist Signature Hemoglobin A1c, 8.3 (H) 4.2 - 5.6 04/21/2018 [facility] B % 4:[address] [facility] Comment: Hemoglobin A1c values greater than or eq ual to 6.5 percent are diagnostic for diabetes mellitus. ?? Diagnosis should be confirmed by repeat testing. ??In diabet ic patients, HbA1c goals should be discussed with healthcar e provider. Specimen Anatomical Collection Method Collection Time Receive d Time (Source) Location / / Volume Laterality Blood (Blood, 04/21/2018 1:54 PM 04/21/20 18 3:34 Venous) NATURAL FABRICATOR PM NATURAL FABRICATOR Renee Catalan M.D. LAB BLOOD ADD-ON Performing Organization Address City/State/ZIP Code Phon e Number [facility] [address] [place] [address] LAB documented in this encounter Visit Diagnoses Diagnosis Diabetes Mellitus Type 2 (HCC) documented in this encounter Additional Health Concerns Assessment Noted Time PHQ-9 Depression Total Score: 3 01/03/2018 10:38 AM CD T documented as of this encounter
--- OUTSIDE RECORDS SUMMARY | 2022-03-31 07:52 | XMS_ITS | Encounter Summary ---
:1950 Author Organization [facility] Address [address] [place] [address] Care Team Providers Name Role Phone Unavailable Primary Care Provider Unavailable Reason for Referral Outpatient (Routine) - Closed Specialty Diagnoses / Procedures Referred By Contact Refer red To Contact Vascular Surgery Diagnoses . Kemar Velásquez M.B.B.S. 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 [facility] Procedures Lower Extremity Arterial (MIMI) - TCPO2 (Wound) [place] STUDY EXT ARTERY > 2 LVLS TRAVIS [address] [place] [address] Referral ID Status Reason Start Date Expiration Date Visits Requ ested Visits Authorized [id number] Closed 06/09/2018 06/09/2019 1 1 NESS NURSE Encounter Details Date Type Department Care Team Description 06/09/2018 Orders Only Department of Eickhoff, Stacy Atherosc lerosis Of [place] Arteries Of Left Leg With Ulceration Of Unspecified Site (HCC) (Primary Dx); Vascular Medicine in [place] Atherosclerosis [place] Arteries Of Ex tremities With Intermittent Claudication Right Leg (HCC) [place], [place] [address] [place] [phone] [phone] Social History Tobacco Use Types Packs/Day Years [...] How often do you attend scientologist or jainism services? 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 documented as of this encounter Plan of Treatment Scheduled Referrals Name Type Priority Associated Diagnoses Order [facility] Vascular Surgery Outpatient Referral Routine Expe cted: office visit 07/17/2018 (clinic) (Approximate), Expires: 06/09/2021 documented as of this encounter Results Lower Extremity Arterial (MIMI) - TCPO2 (Wound) (07/18/2018 12:51 PM WELLNESS NURSE) Anatomical Region Laterality Modality Other Specimen (Source) Anatomical Collection Method Collection Time Re ceived Time Location / / Volume Laterality 07/18/2018 12:07 PM WELLNESS NURSE Narrative 07/18/2018 12:07 PM WELLNESS NURSE Right: Doppler Waveforms: ? Normal at all [...] studies are improved bilaterally. Procedure Note Calvin Padilal M.D. - 07/18/2018For matting of this note [...] Iliac Left with Doppler (07/18/2018 12:09 PM WELLNESS NURSE) Anatomical Region Laterality Modality Abdomen, Pelvis, Ultrasound RST LOS, Ultrasound ARZ LOS, Lef t Ultrasound Ultrasound FLA LOS Specimen (Source) Anatomical Collection Method Collection Time Re ceived Time Location / / Volume Laterality 07/18/2018 12:25 PM WELLNESS NURSE Impressions 07/18/2018 3:36 PM WELLNESS NURSE IMPRESSION: ?? 1. New high velocities in the stented le ft common iliac artery stent suggestive of stenosis. 2. Left external iliac artery stenosis. Narrative 07/18/2018 3:36 PM WELLNESS NURSE EXAM: US AORTA ILIAC ARTERIES LEFT WITH [...] Lower Extremity Arteries Bilateral (07/18/2018 12:09 PM WELLNESS NURSE) Anatomical Region Laterality Modality Lower Extremity, Ultrasound RST LOS, Ultrasound ARZ LOS, Travis ateral Ultrasound Ultrasound FLA LOS Specimen (Source) Anatomical Collection Method Collection Time Re ceived Time Location / / Volume Laterality 07/18/2018 12:32 PM WELLNESS NURSE Impressions 07/18/2018 3:03 PM WELLNESS NURSE IMPRESSION: ?? 1. New right common femoral [...] w ithout stenosis. Narrative 07/18/2018 3:03 PM WELLNESS NURSE EXAM: US LOWER EXTREMITY ARTERIES BILATERAL Exam [...] this encounter Visit Diagnoses Diagnosis Atherosclerosis Of [place] Arteries Of Le ft Leg With Ulceration Of Unspecified Site (HCC) - Primary Atherosclerosis Of [place] Arteries Of Ex tremities With Intermittent Claudication Right Leg (HCC) Atherosclerosis Of [place] Arteries Of Ex tremities With Intermittent Claudication Right Leg (HCC) Atherosclerosis Of [place] Arteries Of Le ft Leg With Ulceration Of Unspecified Site (HCC) Atherosclerosis Of [place] Arteries Of Ex tremities With Intermittent Claudication Right Leg (HCC) Atherosclerosis Of [place] Arteries Of Le ft Leg With Ulceration Of Unspecified Site (HCC) Atherosclerosis Of [place] Arteries Of Ex tremities With Intermittent Claudication Right Leg (HCC) Atherosclerosis Of [place] Arteries Of Le ft Leg With Ulceration Of Unspecified Site (HCC) documented in this encounter Additional Health Concerns Assessment Noted Time PHQ-9 Depression Total Score: 3 01/03/2018 10:38 AM CD T documented as of this encounter
--- OUTSIDE RECORDS SUMMARY | 2022-03-31 07:52 | XMS_ITS | Encounter Summary ---
:1950 Author Organization [facility] Address [address] [place] [address] Care Team Providers Name Role Phone Unavailable Primary Care Provider Unavailable Reason for Visit Reason Comments Med Refill Encounter Details Date Type Department Care Team Description 04/20/2018 Refill Department of Family Medicine, Bambi Adler Med Refill [facility], in Renee Phillips M.D. [place] [address] [place] [address] [place] [address] [phone] Social History Tobacco Use Types Packs/Day Years [...] week 03/25/2021 How often do you attend muslim or lutheran services? 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
--- OUTSIDE RECORDS SUMMARY | 2022-03-31 07:52 | XMS_ITS | Encounter Summary ---
:1950 Author Organization [facility] Address [address] [place] [address] Care Team Providers Name Role Phone Unavailable Primary Care Provider Unavailable Encounter Details Date Type Department Care Team Description 04/21/2018 Abstract [facility] ANGIE Pinon ea Provider, Historical [address] [place] [address] Social History Tobacco Use Types Packs/Day Years [...] How often do you attend mormon or spiritism services? 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
--- OUTSIDE RECORDS SUMMARY | 2022-03-31 07:52 | XMS_ITS | Encounter Summary ---
:1950 Author Organization [facility] Address [address] [place] [address] Care Team Providers Name Role Phone Unavailable Primary Care Provider Unavailable Reason for Referral Outpatient (Routine) - Closed Specialty Diagnoses / Procedures Referred By Contact Refer red To Contact Family Medicine Diagnoses Diabetes Mellitus Type 2 With Diabetic Neuropathy Hyperglycemic (HCC) [facility] Demetri Duran M.D. [address] [place] [address] Referral ID Status Reason Start Date Expiration Date Visits Requ ested Visits Authorized [id number] Closed 04/21/2018 04/21/2019 1 1 IC POLICY ANALYST Encounter Details Date Type Department Care Team Description 04/21/2018 Orders Only Department of [facility] Ruthie finnegan Mellitus Type 2 Medicine, Renee Antonio, With [facility], in [place] Hyperglycemic (HCC) [place] [address] (Primary Dx) [address] [facility] [place] [place] [phone] Social History Tobacco Use Types Packs/Day Years [...] How often do you attend quaker or tenriism services? 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
--- OUTSIDE RECORDS SUMMARY | 2022-03-31 07:53 | XMS_ITS | Encounter Summary ---
:1950 Author Organization [facility] Address [address] [place] [address] Care Team Providers Name Role Phone Unavailable Primary Care Provider Unavailable Reason for Visit Reason Onset Date Comments test only 03/09/2018 Encounter Details Date Type Department Care Team Description 03/09/2018 Clinical Communication Division of Vascular Eicvidya, test only and Endovascular Stacy Mcgee M.S., Surgery in [facility] [address] [place] [address] [address] [place] [phone] Social History Tobacco Use Types Packs/Day Years [...] How often do you attend jewish or caodaism services? 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
--- OUTSIDE RECORDS SUMMARY | 2022-03-31 07:53 | XMS_ITS | Encounter Summary ---
:1950 Author Organization [facility] Address [address] [place] [address] Care Team Providers Name Role Phone Unavailable Primary Care Provider Unavailable Reason for Visit Outpatient (Routine) - Closed Specialty Diagnoses / Procedures Referred By Contact Refer red To Contact Radiology Diagnoses Peripheral Arterial Disease (HCC) 5d-78 kg/bay R/RN natanael [address]604/will flag ok Kemar Velásquez M.BFeiB.S. Rst Rad Ct [place] Procedures CT ABDOMEN PELVIS ANGIOGRAM WITH IV CONTRAST RAD CT ABDOMEN PELVIS ANGIO [address] [facility] [address] [place] [address] [place] [address] Fax: Referral ID Status Reason Start Date Expiration Date Visits Requ ested Visits Authorized [id number] Closed 03/15/2018 03/15/2019 1 1 Encounter Details Date Type Department Care Team Description 03/15/2018 Hospital Encounter Department of Kemar Velásquez Periphe ral Arterial Radiology, Santiago M.B.B.S. 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 lancets [facility] Dispense item 0 08/23/2014 9 covered by [...] RST POCT, B mg/dL 8:11 AM CDT [facility] Comment: ----ADDITIONAL INFORMATION---- Performed at the Point of Care Specimen Anatomical Collection Method Collection Time Receive d Time (Source) Location / / Volume Laterality Blood 03/15/2018 8:08 AM 8 8:11 CDT AM CDT Unknown Provider LAB POCT ORDERABLES - DEVICE Performing Organization Address [facility] Phon e Number POC RST [facility] 200 [place], [place] [address] LABS (ABNORMAL) Creatinine, POCT (03/15/2018 8:08 AM CDT) P athologist Signature eGFR-Black/Afr 55 (L) >=60 03/15/2018 POC RST ican Mongolian, mL/min/BSA 8:11 AM CDT [facility] Comment: ----ADDITIONAL INFORMATION---- Estimated GFR calculated using the 2009 CKD_EPI creatinine equation. eGFR Non-Black/ 48 (L) >=60 mL/min/BSA 03/15/20 18 8:11 POC RST [facility] Mongolian, POCT AM CDT OUTPATIENT [facility]S Comment: ----ADDITIONAL INFORMATION---- Estimated GFR calculated using the 2009 CKD_EPI creatinine equation. Specimen Anatomical Collection Method Collection Time Receive d Time (Source) Location / / Volume Laterality Blood 03/15/2018 8:08 AM 8 8:11 CDT AM CDT Unknown Provider LAB POCT ORDERABLES - DEVICE Performing Organization Address [facility] Phon e Number POC RST [facility] 200 [place], [place] [address] LABS documented in this [...]
--- OUTSIDE RECORDS SUMMARY | 2022-03-31 07:53 | XMS_ITS | Encounter Summary ---
:1950 Author Organization [facility] Address [address] [place] [address] Care Team Providers Name Role Phone Unavailable Primary Care Provider Unavailable Reason for Visit Reason Onset Date Comments Communication 02/03/2018 I had to call and re schedule this patient due to power being out at the [facility] 02-03. He was less than pleased as he has waited 3 w eeks for this appt. I rescheduled him for -14 but he is really hoping you could get him in sooner. Please call and let him know [phone] Encounter Details Date Type Department Care Team Description 02/03/2018 Clinical Communication Department of Carlos julian (I had Family Medicineantony, [facility] this in [place], 2199 patient due to [facility] being out at the [address] [place] [address] 02-03. He was less [phone] than pleased as he has waited 3 weeks [phone] for this appt. I (Fax) rescheduled him for 11-14 but he is really hoping y ou could get him i n sooner. Please call and let him kno w [phone]) Social History Tobacco Use Types Packs/Day Years [...] How often do you attend adventist or zoroastrianism services? 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 - 02/07/2018 9:19 AM CDT Contacted patient. Informed that he is on the waiting list and will be called if there are any cancellations. Telephone Encounter - Holly Marino - 02/03/2018 9:16 AM CDT I had to call and reschedule this patient due to power being out at the [facility] 02-03. He was less than pleased as he has waited 3 weeks for this appt. I rescheduled him for 03-29 but he is really hoping you could get him in sooner. Please call and let him know [phone] documented in this encounter Plan of Treatment Not on filedocumented as of this encounter Visit Diagnoses Not on filedocumented in this encounter Additional Health Concerns Assessment Noted Time PHQ-9 Depression Total Score: 3 01/03/2018 10:38 AM CD T documented as of this encounter
--- OUTSIDE RECORDS SUMMARY | 2022-03-31 07:53 | XMS_ITS | Encounter Summary ---
:1950 Author Organization [facility] Address [address] [place] [address] Care Team Providers Name Role Phone Unavailable Primary Care Provider Unavailable Reason for Visit Reason Comments Med Refill Encounter Details Date Type Department Care Team Description 02/03/2018 Refill Department of Family Medicine, Bambi Adler Med Refill [facility], in Renee Phillips M.D. [place] [address] [place] [address] [place] [address] [phone] Social History Tobacco Use Types Packs/Day Years [...] How often do you attend hoahaoism or mu-ism services? 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
--- OUTSIDE RECORDS SUMMARY | 2022-03-31 07:53 | XMS_ITS | Encounter Summary ---
:1950 Author Organization [facility] Address [address] [place] [address] Care Team Providers Name Role Phone Unavailable Primary Care Provider Unavailable Encounter Details Date Type Department Care Team Description 02/17/2018 Orders Only Department of Neurology in Yessy Cohen M.D., [place], [place] [facility] [address] [place] [address] [place], [place] [phone] [address] (Wo rk) Social History Tobacco Use [...] How often do you attend congregation or rastafari services? 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
--- OUTSIDE RECORDS SUMMARY | 2022-03-31 07:53 | XMS_ITS | Encounter Summary ---
:1950 Author Organization [facility] Address [address] [place] [address] Care Team Providers Name Role Phone Unavailable Primary Care Provider Unavailable Encounter Details Date Type Department Care Team Description 03/20/2018 Clinical Communication Department of [facility] [place] [facility] in [place] [address] [facility] [place] [address] [phone] Social History Tobacco Use Types Packs/Day Years [...] How often do you attend mormon or temple services? 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
--- OUTSIDE RECORDS SUMMARY | 2022-03-31 07:53 | XMS_ITS | Encounter Summary ---
:1950 Author Organization [facility] Address [address] [place] [address] Care Team Providers Name Role Phone Unavailable Primary Care Provider Unavailable Reason for Visit Reason Comments Med Refill Encounter Details Date Type Department Care Team Description 04/04/2018 Refill Department of Family Medicine, Bambi Adler Med Refill [facility], in Renee Phillips M.D. [place] [address] [place] [address] [place] [address] [phone] Social History Tobacco Use Types Packs/Day Years [...] How often do you attend evangelical or islam services? 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
--- OUTSIDE RECORDS SUMMARY | 2022-03-31 07:53 | XMS_ITS | Encounter Summary ---
:1950 Author Organization [facility] Address [address] [place] [address] Care Team Providers Name Role Phone Unavailable Primary Care Provider Unavailable Encounter Details Date Type Department Care Team Description 03/22/2018 Clinical Communication Division of Vascular Eicwatsonoff, and Endovascular Stacy Mcgee M.S., Surgery in [facility] [address] [facility] [address] [place] [address] [phone] Social History Tobacco Use Types Packs/Day Years [...] How often do you attend christian or synagogue services? 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 - 03/22/2018 9:44 AM TRAVEL PT PLAN The following information was provided: I [...] following references were used: nursing clinical judgement EL PT documented in this encounter Plan of Treatment Not on filedocumented as of this encounter Visit Diagnoses Diagnosis Peripheral Arterial Disease (HCC) - Prim dat documented in this encounter Additional Health Concerns Assessment Noted Time PHQ-9 Depression Total Score: 3 01/03/2018 10:38 AM CD T documented as of this encounter
--- OUTSIDE RECORDS SUMMARY | 2022-03-31 07:53 | XMS_ITS | Encounter Summary ---
:1950 Author Organization [facility] Address [address] [place] [address] Care Team Providers Name Role Phone Unavailable Primary Care Provider Unavailable Reason for Visit Reason Comments Med Refill Encounter Details Date Type Department Care Team Description 03/28/2018 Refill Department of Family Medicine, Bambi Adler Med Refill [facility], in Renee Phillips M.D. [place] [address] [place] [address] [place] [address] [phone] Social History Tobacco Use Types Packs/Day Years [...] How often do you attend yazdanism or protestant services? 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
--- OUTSIDE RECORDS SUMMARY | 2022-03-31 07:53 | XMS_ITS | Encounter Summary ---
:1950 Author Organization [facility] Address [address] [place] [address] Care Team Providers Name Role Phone Unavailable Primary Care Provider Unavailable Encounter Details Date Type Department Care Team Description 03/20/2018 Clinical Communication Department of [facility], [place] Renee [facility] [place], in [place] [address] [place] [address] [phone] Social History Tobacco Use Types Packs/Day Years [...] How often do you attend protestant or restorationist services? 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 Please advise. GROWER documented in this encounter Plan of Treatment Not on filedocumented as of this encounter Visit Diagnoses Not on filedocumented in this encounter Additional Health Concerns Assessment Noted Time PHQ-9 Depression Total Score: 3 01/03/2018 10:38 AM CD T documented as of this encounter
--- OUTSIDE RECORDS SUMMARY | 2022-03-31 07:53 | XMS_ITS | Encounter Summary ---
:1950 Author Organization [facility] Address [address] [place] [address] Care Team Providers Name Role Phone Unavailable Primary Care Provider Unavailable Reason for Visit Reason Comments Consult Ref. - restless legs Appointment Request (Routine) - Closed Specialty Diagnoses / Procedures Referred By Contact Refer red To Contact Neurology Referral ID Status Reason Start Date Expiration Date Visits Requ ested Visits Authorized [id number] Closed 12/30/2017 12/30/2018 1 1 Encounter Details Date Type Department Care Team Description 02/16/2018 Comprehensive Visit Department of Yessy Cohen s Leg Neurology in [place] Gomes, Syndrome [place], [place] [facility] 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 HE HAS CHRONIC PAIN DUE TO NEUROPATHY [...] popliteal and /or tibial artery angioplasty/stent Notes: [id number] ??? ENDOVASCULAR ILIAC AND/OR FEMORAL AND/OR POPLITEAL AND /OR TIBIAL ARTERY ANGIOPLASTY/STENT Right08/31/2017 Endovascular iliac and/or femoral and/or popliteal and /or tibial artery angioplasty/stent Notes: [id number] ??? FEMORAL ARTERY STENT Right 08/31/2017 ??? FEMORAL ENDARTERECTOMY, PATCH ANGIOPLASTY/INTERPOSITION GRAFT WITH/WITHOUT PROFUNDOPLASTY Left 04/04/2017 Femoral endarterectomy, patch angioplasty/interposition graft with/without profundoplasty Notes: [id number] ??? NM SESTAMIBI W/DOBUTAMINE 1 DA postive [...] Rash itchy ??? Pregabalin Anaphylaxis swell ??? Fjdgraw-Mla-Ezk Reductase Inhibitors Myalgia Family History Problem Relation [...] is retired. 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 OBJECTIVE Vitals: 02/16/18 1220 BP: 118/75 Pulse: 72 PHYSICAL EXAM COGNITION: Alert and oriented x 4. CRANIAL NERVES: bilingual trainer II-XII intact and symmetric. MOTOR: Full strength [...]
--- OUTSIDE RECORDS SUMMARY | 2022-03-31 07:53 | XMS_ITS | Encounter Summary ---
:1950 Author Organization [facility] Address [address] [place] [address] Care Team Providers Name Role Phone Unavailable Primary Care Provider Unavailable Reason for Visit Auth/Cert Specialty Diagnoses / Procedures Referred By Contact Refer red To Contact Diagnoses Peripheral Arterial Disease (HCC) Procedures OR REVASC OPN/PERC ILIAC W STENT OR REVASC ILIAC ARTY STNT ANGPLST OR ANGIOGRAPHY EXT UNILAT S&I OR US GUIDE VASC ACCESS IR ENDOVASCULAR ANGIOPLASTY STENT ILIAC LOWER EXTREMITY; right femoral access Referral ID Status Reason Start Date Expiration Date Visits Requ ested Visits Authorized [id number] 1 1 Encounter Details Date Type Department Care Team Description 04/18/2018 Surgery RST ROMChrista PETERS OR Kmear Velásquez, 1. Ultrasound-guided [address] [place] [address] [address] common femoral arteries. [phone] [place], [place] 2. Left SFA 3r d order [id number] vessel catheter [phone] placement 3. Le ft pelvic (Work) angiogram [...] How often do you attend hindu or buddhism services? 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 documented as of this encounter Last Filed Vital Signs Vital Sign Reading Time Taken Comments Blood Pressure 168/76 04/18/2018 9:19 AM FARM MANAGEMENT SUPERVISOR Pulse 71 04/18/2018 9:19 AM FARM MANAGEMENT SUPERVISOR Temperature 36.8 ??C (98.2 ??F) 04/18/2018 9:19 AM FARM MANAGEMENT SUPERVISOR Respiratory Rate 16 04/18/2018 9:19 AM FARM MANAGEMENT SUPERVISOR Oxygen Saturation 96% 04/18/2018 9:19 AM FARM MANAGEMENT SUPERVISOR Inhaled Oxygen Concentration - - Weight 79.3 kg (174 lb 13.2 oz) 04/18/2018 9:19 AM FARM MANAGEMENT SUPERVISOR Height 173.4 cm (5' 8.27) 04/18/2018 9:19 AM FARM MANAGEMENT SUPERVISOR Body Mass Index 26.37 04/18/2018 9:19 AM FARM MANAGEMENT SUPERVISOR documented in this encounter Discharge Instructions AttachmentsThe following attachments cannot be sent through Care Everywhere.Care Following Coronary Angiogram/Angioplasty/Stent Placement ??? Femoral (Leg) (Arabic)documented in this encounter Medications at Time of [...] mg tablet mg total) by mouth daily. ACCU-CHEK XIAO PLUS TEST for testing blood 200 strip 11 04/20/2018 STRP strips sugars 6 times daily amLODIPine [...] by mouth 11 05/11/2019 capsule at bedtime. ferrous sulfate 325 mg Take 1 tablet [...] a day with meals. [place] [facility] [place] item 0 08/23/2014 [...] tablet mg total) by mouth once daily. pen needle, diabetic 31 Inject 1 each under 150 each 3 01/201704/20/2018 gauge x 5/16 needle the skin 4 (four) times a day. rOPINIRole (REQUIP) 2 mg Take 1 tablet (2 mg 90 tablet 11 04/21/2018 tablet total) by mouth 3 (three) times a day. tiZANidine (ZANAFLEX) 4 TO ONE TABLET BY 0 201705/11/2019 mg tablet MOUTH THREE TIMES A DAY NEEDED, takes one in the afternoon, one at supper and one at bedtime documented as of this encounter Progress Notes [...] coordinated with Dr. Velásquez in 3-4 months. MANAGEMENT SUPERVISOR documented in this encounter H&P Notes Dharmesh [...] outpatient exam Assessment and Plan: Plan Unchanged MANAGEMENT SUPERVISOR documented in this encounter OR Notes Op [...] came up and over with a 6 British 55 cm Ang sheath. The external iliac [...] Implant Name Type Inv. Item Serial No. Monitor Tech Lot No. LRB No. Used Action STNT INNOVA OTW [id number] - [id number] Vascular Stent STNT INNOVA OTW [id number] [employer] [id number] Left 1 Implanted Shonda ReneeSFei MANAGEMENT SUPERVISOR Brief Op Note - Dharmesh Castellanos M.B.BFeiS. - 04/18/2018 11:58 AM FARM MANAGEMENT SUPERVISOR BRIEF OP NOTE Procedure(s): 1. Ultrasound-guided access [...] Implant Name Type Inv. Item Serial No. Monitor Tech Lot No. LRB No. Used Action STNT INNOVA OTW [id number] - [id number] Vascular Stent STNT INNOVA OTW [id number] [employer] [id number] Left 1 Implanted Amy Hale MANAGEMENT SUPERVISOR documented in this encounter Plan of Treatment Not on filedocumented as of this encounter Procedures Procedure Name Priority Date/Time Associated Comments Diagnosis ADULT OXYGEN Routine 04/18/2018 4:43 THERAPY PM FARM MANAGEMENT SUPERVISOR GLUCOSE POCT, B Routine 04/18/2018 3:09 Results f or this PM FARM MANAGEMENT SUPERVISOR procedure are i n the results section. ADULT OXYGEN Routine 04/18/2018 3:05 THERAPY PM FARM MANAGEMENT SUPERVISOR IR ENDOVASCULAR RAD - Routine 04/18/2018 2:59 Peripheral Results for this ANGIOPLASTY STENT (most inpatients PM FARM MANAGEMENT SUPERVISOR Arterial Disease pr ocedure are in ILIAC LOWER and all (HCC) the results EXTREMITY outpatients) section. ACT, POCT, B Routine 04/18/2018 1:52 Results for this PM FARM MANAGEMENT SUPERVISOR procedure are i n the results section. ACT, POCT, B Routine 04/18/2018 1:22 Results for this PM FARM MANAGEMENT SUPERVISOR procedure are i n the results section. ACT, POCT, B Routine 04/18/2018 12:53 Results for this PM FARM MANAGEMENT SUPERVISOR procedure are i n the results section. GLUCOSE POCT, B Routine 04/18/2018 12:51 Results for this PM FARM MANAGEMENT SUPERVISOR procedure are i n the results section. ACT, POCT, B Routine 04/18/2018 12:20 Results for this PM FARM MANAGEMENT SUPERVISOR procedure are i n the results section. GLUCOSE POCT, B Routine 04/18/2018 9:07 Results f or this AM FARM MANAGEMENT SUPERVISOR procedure are i n the results section. documented in this encounter Results Glucose, POCT (04/18/2018 3:09 PM FARM MANAGEMENT SUPERVISOR) athologist Signature Glucose, POCT, 102 70 - 140 04/18/2018 [facility] B mg/dL 3:14 PM FARM MANAGEMENT SUPERVISOR SERVICES Specimen Anatomical Collection Method Collection Time Receive d Time (Source) Location / / Volume Laterality Blood 04/18/2018 3:09 PM 8 3:14 FARM MANAGEMENT SUPERVISOR PM FARM MANAGEMENT SUPERVISOR Unknown Provider LAB POCT ORDERABLES-MANUAL Performing Organization Address City/[facility]/ZIP Code Phon e Number POC [facility] SERVICES [address] [place] [address] IR ENDOVASCULAR ANGIOPLASTY STENT ILIAC LOWER EXTREMITY (04/18/2018 2:59 PM FARM MANAGEMENT SUPERVISOR) Anatomical Region Laterality Modality Lower Extremity, Vascular Interventional RST LOS N/A X-Ray Angiography Specimen (Source) Anatomical Location Collection Method / Collectio n Time Received Time / Laterality Volume Narrative 04/18/2018 7:59 PM FARM MANAGEMENT SUPERVISOR This result has an attachment that is no t available. Performed by surgeon - see Op Note for r esult. Kemar Reyes IMG IR PROCEDURES (ABNORMAL) ACT (Activated Clotting Time), POCT (04/18/2018 1:52 PM FARM MANAGEMENT SUPERVISOR) athologist Signature Activated 218 (H) 84 - 139 04/18/[address] Clotting Time, sec 1:57 PM FARM MANAGEMENT SUPERVISOR [facility] POCT INPATIENT LABS Specimen Anatomical Collection Method Collection Time Receive d Time (Source) Location / / Volume Laterality Blood 04/18/2018 1:52 PM 8 1:57 FARM MANAGEMENT SUPERVISOR PM FARM MANAGEMENT SUPERVISOR Unknown Provider LAB POCT ORDERABLES - DEVICE Performing Organization Address City/[facility] Code Phon e Number [facility]OC [facility] IN[facility]IENT [facility] [address] [facility] N [address] (ABNORMAL) ACT (Activated Clotting Time), POCT (04/18/2018 1:22 PM FARM MANAGEMENT SUPERVISOR) athologist Signature Activated 223 (H) 84 - 139 04/18/[address] Clotting Time, sec 1:27 PM FARM MANAGEMENT SUPERVISOR [facility] POCT INPATIENT LABS Specimen Anatomical Collection Method Collection Time Receive d Time (Source) Location / / Volume Laterality Blood 04/18/2018 1:22 PM 8 1:28 FARM MANAGEMENT SUPERVISOR PM FARM MANAGEMENT SUPERVISOR Unknown Provider LAB POCT ORDERABLES - DEVICE Performing Organization Address [facility] Phon e Number [facility] [address] [facility] N [address] (ABNORMAL) ACT (Activated Clotting Time), POCT (04/18/2018 12:53 PM FARM MANAGEMENT SUPERVISOR) P athologist Signature Activated 213 (H) 84 - 139 04/18/[address] Clotting Time, sec 12:57 PM FARM MANAGEMENT SUPERVISOR [facility] POCT INPATIENT LABS Specimen Anatomical Collection Method Collection Time Receive d Time (Source) Location / / Volume Laterality Blood 04/18/2018 12:53 04/18/2018 PM FARM MANAGEMENT SUPERVISOR 12:57 PM FARM MANAGEMENT SUPERVISOR Unknown Provider LAB POCT ORDERABLES - DEVICE Performing Organization Address [facility] Phon e Number [facility] [address] [facility] N [address] Glucose, POCT (04/18/2018 12:51 PM FARM MANAGEMENT SUPERVISOR) P athologist Signature Glucose, POCT, 124 70 - 140 04/18/[address] B mg/dL 12:52 PM [facility] INPATIENT LABS Site ARTLINE 04/18/[address] 12:52 PM FARM MANAGEMENT SUPERVISOR [facility] INPATIENT LABS Specimen Anatomical Collection Method Collection Time Receive d Time (Source) Location / / Volume Laterality Blood 04/18/2018 12:51 04/18/2018 PM FARM MANAGEMENT SUPERVISOR 12:53 PM FARM MANAGEMENT SUPERVISOR Unknown Provider LAB POCT ORDERABLES-MANUAL Performing Organization Address [facility] Phon e Number [facility] [address] [facility] N [address] (ABNORMAL) ACT (Activated Clotting Time), POCT (04/18/2018 12:20 PM FARM MANAGEMENT SUPERVISOR) P athologist Signature Activated 228 (H) 84 - 139 04/18/[address] Clotting Time, sec 12:25 PM FARM MANAGEMENT SUPERVISOR [facility] POCT INPATIENT LABS Specimen Anatomical Collection Method Collection Time Receive d Time (Source) Location / / Volume Laterality Blood 04/18/2018 12:20 04/18/2018 PM FARM MANAGEMENT SUPERVISOR 12:26 PM FARM MANAGEMENT SUPERVISOR Unknown Provider LAB POCT ORDERABLES - DEVICE Performing Organization Address City/State/ZIP Code Phon e Number [facility] [address] [facility], N [address] (ABNORMAL) Glucose, POCT (04/18/2018 9:07 AM FARM MANAGEMENT SUPERVISOR) Analysis Performed At Patho logist Time Signature Glucose, POCT, 164 (H) 70 - 140 04/18/2018 [facility]OC [facility] B mg/dL 9:11 AM FARM MANAGEMENT SUPERVISOR SERVICES Site Capillary 04/18/2018 [facility] 9:11 AM FARM MANAGEMENT SUPERVISOR SERVICES Last Intake NPO 04/18/2018 [facility] 9:11 AM FARM MANAGEMENT SUPERVISOR SERVICES Specimen Anatomical Collection Method Collection Time Receive d Time (Source) Location / / Volume Laterality Blood 04/18/2018 9:07 AM 8 9:11 FARM MANAGEMENT SUPERVISOR AM FARM MANAGEMENT SUPERVISOR Unknown Provider LAB POCT ORDERABLES-MANUAL Performing Organization Address [facility]/ZIP Code Phon e Number [facility]OC [facility] SERVICES [address] [place] [address] documented in this encounter Visit Diagnoses Diagnosis [...] PM 20 mL/hr 20 mL/hr (PLASMA-LYTE A) FARM MANAGEMENT SUPERVISOR 20 mL/hr, intravenous, Continuous, Starting on Tue04/18/18 at 1430, PACU & Post-Op heparin 10 Units/mL in NaCl 0.9% 500 mL flush Given 2:25 PM FARM MANAGEMENT SUPERVISOR 250 mL solution miscellaneous, Once in surgery, OR use only, Starting on Tue04/18/18 at 0939, For 1 dose, Intra-Op, *Flush/Irrigation use only* insulin aspart U-100 Given 04/18/2018 9:29 AM FARM MANAGEMENT SUPERVISOR 2 Units Left Upper Abdomen injection 0-8 [...] mg/mL in NaCl Given 04/18/2018 2:25 PM FARM MANAGEMENT SUPERVISOR 134 mL 0.9% injection 300 mL, injection, Once in surgery, OR use only, Starting on Tue04/18/18 at 0939, For 1 dose, Intra-Op lidocaine-bupivacaine 1%-0.25% infiltration Given 04/18/2018 11:59 AM FARM MANAGEMENT SUPERVISOR 16 mL injection 30 mL 30 mL, [...] 10 mg (ROXICODONE) Given 04/18/2018 5:17 PM FARM MANAGEMENT SUPERVISOR 10 mg 10 mg, oral, Every 4 [...] Recently Administered Medications Times are shown in FARM MANAGEMENT SUPERVISOR. Scheduled Medication Order 04/16/2018 04/17/2018 04/18/2018 acetaminophen [...] R.N.) 0-8 Units, subcutaneous, Every 2 hour OR N, high blood sugar, Nurse to determine [...]
--- OUTSIDE RECORDS SUMMARY | 2022-03-31 07:53 | XMS_ITS | Encounter Summary ---
:1950 Author Organization [facility] Address [address] [place] [address] Care Team Providers Name Role Phone Unavailable Primary Care Provider Unavailable Reason for Visit Reason Onset Date Comments Medication Question 02/16/2018 Encounter Details Date Type Department Care Team Description 02/16/2018 Clinical Communication Department of [facility] Question Family Medicine, [facility], nita Duran M.D. [place], [place] [address] [place] [phone] Social History Tobacco Use Types Packs/Day [...] How often do you attend hindu or sikh services? 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 - 02/16/2018 2:18 PM CDT Contacted Ottoniel at [facility] pharmacy.Correct script for Gabapentin is 300 mg 2 times a day. Telephone Encounter - Maxi Strong - 02/16/2018 1:40 PM CDT 2 RX for gabapentin for various quantities and had different directions as well. Please call to confirm which RX to fill. [phone] documented in this encounter Plan of Treatment Not on filedocumented as of this encounter Visit Diagnoses Not on filedocumented in this encounter Additional Health Concerns Assessment Noted Time PHQ-9 Depression Total Score: 3 01/03/2018 10:38 AM CD T documented as of this encounter
--- OUTSIDE RECORDS SUMMARY | 2022-03-31 07:53 | XMS_ITS | Encounter Summary ---
:1950 Author Organization [facility] Address [address] [place] [address] Care Team Providers Name Role Phone Unavailable Primary Care Provider Unavailable Reason for Visit Reason Comments Med Refill Encounter Details Date Type Department Care Team Description 02/23/2018 Refill Department of Family Medicine, Bambi Adler Med Refill [facility], in Renee Phillips M.D. [place] [address] [place] [address] [place] [address] [phone] Social History Tobacco Use Types Packs/Day Years [...] How often do you attend yazdanism or caodaism services? 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 Nurse Review: DME Request Provider: Renee Catalan M.D. Supply Ordered: Accu-Chek Talia Meter Quantity: N/A Directions: N/A Refills: N/A Pharmacy: [facility] Please Include the ICD 10 documented [...]
--- OUTSIDE RECORDS SUMMARY | 2022-03-31 07:53 | XMS_ITS | Encounter Summary ---
:1950 Author Organization [facility] Address [address] [place] [address] Care Team Providers Name Role Phone Unavailable Primary Care Provider Unavailable Encounter Details Date Type Department Care Team Description 02/16/2018 Hospital Encounter Department of Yessy Cohen Restless Leg Syndrome Laboratory Medicine Delmy Gomes, in [place] [address] [phone] Social History Tobacco Use Types Packs/Day [...] How often do you attend orthodox or taoism services? 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 lancets [facility] [place] Dispense item 0 08/23/2014 9 [...] athologist Signature Ferritin, S 44 mcg/L 02/16/2018 [facility] 4:51 PM CDT [facility] Comment: Biotin has been identified by the manufa cturer as a potential interfering substance. ??Higher concentr ations of biotin may be found in multivitamins, hair/nail supple ments, and workout supplements. ??If the result does not [facility] clinical observations, repeat testing after patient refrains [...] Address City/State/ZIP Code Phon e Number [facility] [address] [place] [address] LAB documented in this encounter Visit Diagnoses Diagnosis Restless Leg Syndrome documented in this encounter Additional Health Concerns Assessment Noted Time PHQ-9 Depression Total Score: 3 01/03/2018 10:38 AM CD T documented as of this encounter
--- OUTSIDE RECORDS SUMMARY | 2022-03-31 07:53 | XMS_ITS | Encounter Summary ---
:1950 Author Organization [facility] Address [address] [place] [address] Care Team Providers Name Role Phone Unavailable Primary Care Provider Unavailable Encounter Details Date Type Department Care Team Description 03/15/2018 Hospital Encounter Department of Kemar Velásquez Periphe ral Arterial Laboratory Medicine M.B.B.S. Disease (HCC) and Pathology, [address] [place] [address], in [place], [place] [address] [place] [address] [place], [place] (Work) [address] [phone] Social History Tobacco Use Types Packs/Day Years [...] often do you attend roman catholic or sikhism services? 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 lancets [facility] [...] with Estimated GFR (03/15/2018 7:42 AM CDT) [facility] Method Time Signature Creatinine 1.54 (H) 0.74 - 03/15/2018 [facility] 1.35 9:28 AM CDT LABORATORIES - mg/dL [facility] eGFR-Non 46 (L) >=60 03/15/2018 [facility] Black/ mL/min/BS 9:28 AM CDT LABORATORIES - [place] A [facility] Comment: ----ADDITIONAL INFORMATION---- Estimated GFR calculated using the 2009 CKD_EPI creatinine equation. eGFR-Black/ 54 (L) >=60 mL/min/BSA 03/15/2018 9:28 [facility] [place] AM CDT LABORATORIES - [facility] Comment: ----ADDITIONAL INFORMATION---- Estimated GFR calculated using the 2009 CKD_EPI creatinine equation. Specimen Anatomical Collection Method Collection Time Receive d Time (Source) Location / / Volume Laterality Blood (Blood, 03/15/2018 7:42 AM 03/15/20 18 8:04 Venous) CDT AM CDT Kemar Reyes LAB BLOOD ADD-ON Performing Organization Address City/State/ZIP Code Phon e Number [facility] LABORATORIES - [address] [place] [address] [facility] documented in this encounter Visit Diagnoses Diagnosis Peripheral Arterial Disease (HCC) documented in this encounter Additional Health Concerns Assessment Noted Time PHQ-9 Depression Total Score: 3 01/03/2018 10:38 AM CD T documented as of this encounter
--- OUTSIDE RECORDS SUMMARY | 2022-03-31 07:53 | XMS_ITS | Encounter Summary ---
:1950 Author Organization 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 lancets [facility] [place] Dispense item 0 08/23/2014 9 covered by [...] the results DOPPLER outpatients) Atherosclerosis Of section. 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
--- OUTSIDE RECORDS SUMMARY | 2022-03-31 07:53 | XMS_ITS | Encounter Summary ---
:1950 Author Organization [facility] Address [address] [place] [address] Care Team Providers Name Role Phone Unavailable Primary Care Provider Unavailable Reason for Visit Reason Comments Med Refill Encounter Details Date Type Department Care Team Description 04/05/2018 Refill Department of Family Medicine, Bambi Adler Med Refill [facility], in Renee Phillips M.D. [place] [address] [place] [address] [place] [address] [phone] Social History Tobacco Use Types Packs/Day Years [...] How often do you attend yarsanism or jainism services? 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
--- OUTSIDE RECORDS SUMMARY | 2022-03-31 07:53 | XMS_ITS | Encounter Summary ---
:1950 Author Organization [facility] Address [address] [place] [address] Care Team Providers Name Role Phone Unavailable Primary Care Provider Unavailable Encounter Details Date Type Department Care Team Description 03/09/2018 Orders Only Division of Vascular Stacy Correiaipheral Arterial and Endovascular S, M.S., R.N. 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 eGFR-Black/ 54 (L) >=60 mL/min/BSA 03/15/2018 9:28 [facility] Lithuanian AM CDT LABORATORIES - [facility] Comment: ----ADDITIONAL INFORMATION---- Estimated GFR calculated using the 2009 CKD_EPI creatinine equation. Specimen Anatomical Collection Method Collection Time Receive d Time (Source) Location / / Volume Laterality Blood (Blood, 03/15/2018 7:42 AM 03/15/20 18 8:04 Venous) CDT AM CDT Kemar MerchantS. LAB BLOOD ADD-ON Performing Organization Address City/State/ZIP Code Phon e Number [facility] LABORATORIES - [address] [place] [id number] 05 [facility] documented in this encounter Visit Diagnoses Diagnosis Peripheral Arterial Disease (HCC) - Prim dat Peripheral Arterial Disease (HCC) documented in this encounter Additional Health Concerns Assessment Noted Time PHQ-9 Depression Total Score: 3 01/03/2018 10:38 AM CD T documented as of this encounter
--- OUTSIDE RECORDS SUMMARY | 2022-03-31 07:53 | XMS_ITS | Encounter Summary ---
:1950 Author Organization [facility] Address [address] [place] [address] Care Team Providers Name Role Phone Unavailable Primary Care Provider Unavailable Reason for Visit Auth/Cert Specialty Diagnoses / Procedures Referred By Contact Refer red To Contact Diagnoses Peripheral Arterial Disease (HCC) Procedures IA REVASC OPN/PERC ILIAC W STENT IA REVASC ILIAC ARTY STNT ANGPLST IA ANGIOGRAPHY EXT UNILAT S&I IA US GUIDE VASC ACCESS IR ENDOVASCULAR ANGIOPLASTY STENT ILIAC LOWER EXTREMITY; right femoral access Referral ID Status Reason Start Date Expiration Date Visits Requ ested Visits Authorized [id number] 1 1 Encounter Details Date Type Department Care Team Description 04/18/2018 Hospital Encounter Outpatient Surgery Kemar Velásquez Pe [facility] [place] [address] [facility] [address] [place] [phone] Social History Tobacco Use Types Packs/Day Years [...] How often do you attend sikhism or rastafari services? 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 documented as of this encounter Last Filed Vital Signs Vital Sign Reading Time Taken Comments Blood Pressure 154/61 04/18/2018 7:05 PM SEAM PRESS OPERATOR Pulse 78 04/18/2018 7:05 PM SEAM PRESS OPERATOR Temperature 37 ??C (98.6 ??F) 04/18/2018 6:00 PM SEAM PRESS OPERATOR Respiratory Rate 16 04/18/2018 7:05 PM SEAM PRESS OPERATOR Oxygen Saturation 92% 04/18/2018 7:05 PM SEAM PRESS OPERATOR Inhaled Oxygen Concentration - - Weight 79.3 kg (174 lb 13.2 oz) 04/18/2018 9:19 AM SEAM PRESS OPERATOR Height 173.4 cm (5' 8.27) 04/18/2018 9:19 AM SEAM PRESS OPERATOR Body Mass Index 26.37 04/18/2018 9:19 AM SEAM PRESS OPERATOR documented in this encounter Discharge Instructions AttachmentsThe following attachments cannot be sent through Care Everywhere.Care Following Coronary Angiogram/Angioplasty/Stent Placement ??? Femoral (Leg) (Monegasque)documented in this encounter Medications at Time of [...] times a day with meals. lancets [facility] [place] [...] hours. oxyCODONE-acetaminophen TAKE ONE TABLET BY 0 /05/08/2020 [...] this encounter Progress Notes Michelle Meier APRN, C.N.P., M.S.N. - 04/18/2018 7:20 PM CST [...] coordinated with Dr. Velásquez in 3-4 months. PRESS OPERATOR documented in this encounter H&P Notes [...] outpatient exam Assessment and Plan: Plan Unchanged PRESS OPERATOR documented in this encounter OR Notes [...] came up and over with a 6 Czech 55 cm Ang sheath. The external iliac [...] Implant Name Type Inv. Item Serial No. Sealer Operator Lot No. LRB No. Used Action STNT INNOVA OTW [id number] - [id number] Vascular Stent STNT INNOVA OTW [id number] [employer] [id number] Left 1 Implanted Shonda ReneeSFei PRESS OPERATOR Brief Op Note - Dharmesh Castellanos M.B.B.SFei - 04/18/2018 11:58 AM SEAM PRESS OPERATOR BRIEF OP NOTE Procedure(s): 1. Ultrasound-guided [...] Implant Name Type Inv. Item Serial No. Sealer Operator Lot No. LRB No. Used Action STNT INNOVA OTW [id number] - [id number] Vascular Stent STNT INNOVA OTW [id number] [employer] [id number] Left 1 Implanted Amy Hale PRESS OPERATOR documented in this encounter Plan of Treatment Not on filedocumented as of this encounter Procedures Procedure Name Priority Date/Time Associated Comments Diagnosis ADULT OXYGEN Routine 04/18/2018 4:43 THERAPY PM SEAM PRESS OPERATOR GLUCOSE POCT, B Routine 04/18/2018 3:09 Results f or this PM SEAM PRESS OPERATOR procedure are i n the results section. ADULT OXYGEN Routine 04/18/2018 3:05 THERAPY PM SEAM PRESS OPERATOR IR ENDOVASCULAR RAD - Routine 04/18/2018 2:59 Peripheral Results for this ANGIOPLASTY STENT (most inpatients PM SEAM PRESS OPERATOR Arterial Disease pr ocedure are in ILIAC LOWER and all (HCC) the results EXTREMITY outpatients) section. ACT, POCT, B Routine 04/18/2018 1:52 Results for this PM SEAM PRESS OPERATOR procedure are i n the results section. ACT, POCT, B Routine 04/18/2018 1:22 Results for this PM SEAM PRESS OPERATOR procedure are i n the results section. ACT, POCT, B Routine 04/18/2018 12:53 Results for this PM SEAM PRESS OPERATOR procedure are i n the results section. GLUCOSE POCT, B Routine 04/18/2018 12:51 Results for this PM SEAM PRESS OPERATOR procedure are i n the results section. ACT, POCT, B Routine 04/18/2018 12:20 Results for this PM SEAM PRESS OPERATOR procedure are i n the results section. GLUCOSE POCT, B Routine 04/18/2018 9:07 Results f or this AM SEAM PRESS OPERATOR procedure are i n the results section. documented in this encounter Results Glucose, POCT (04/18/2018 3:09 PM SEAM PRESS OPERATOR) athologist Signature Glucose, POCT, 102 70 - 140 04/18/2018 [facility]OC [facility] LAB B mg/dL 3:14 PM SEAM PRESS OPERATOR SERVICES Specimen Anatomical Collection Method Collection Time Receive d Time (Source) Location / / Volume Laterality Blood 04/18/2018 3:09 PM 8 3:14 SEAM PRESS OPERATOR PM SEAM PRESS OPERATOR Unknown Provider LAB POCT ORDERABLES-MANUAL Performing Organization Address [facility] Phon e Number POC [facility] LAB SERVICES [address] [place] [address] IR ENDOVASCULAR ANGIOPLASTY STENT ILIAC LOWER EXTREMITY (04/18/2018 2:59 PM SEAM PRESS OPERATOR) Anatomical Region Laterality Modality Lower Extremity, Vascular Interventional RST LOS N/A X-Ray Angiography Specimen (Source) Anatomical Location Collection Method / Collectio n Time Received Time / Laterality Volume Narrative 04/18/2018 7:59 PM SEAM PRESS OPERATOR This result has an attachment that is no t available. Performed by surgeon - see Op Note for r esult. Kemar Reyes IMG IR PROCEDURES (ABNORMAL) ACT (Activated Clotting Time), POCT (04/18/2018 1:52 PM SEAM PRESS OPERATOR) athologist Signature Activated 218 (H) 84 - 139 04/18/[address] Clotting Time, sec 1:57 PM SEAM PRESS OPERATOR [facility] POCT INPATIENT LABS Specimen Anatomical Collection Method Collection Time Receive d Time (Source) Location / / Volume Laterality Blood 04/18/2018 1:52 PM 8 1:57 SEAM PRESS OPERATOR PM SEAM PRESS OPERATOR Unknown Provider LAB POCT ORDERABLES - DEVICE Performing Organization Address [facility] Phon e Number POC RST [facility] INPATIENT LABS [address] [facility] [address] [address] (ABNORMAL) ACT (Activated Clotting Time), POCT (04/18/2018 1:22 PM SEAM PRESS OPERATOR) athologist Signature Activated 223 (H) 84 - 139 04/18/[address] Clotting Time, sec 1:27 PM SEAM PRESS OPERATOR [facility] POCT INPATIENT LABS Specimen Anatomical Collection Method Collection Time Receive d Time (Source) Location / / Volume Laterality Blood 04/18/2018 1:22 PM 8 1:28 SEAM PRESS OPERATOR PM SEAM PRESS OPERATOR Unknown Provider LAB POCT ORDERABLES - DEVICE Performing Organization Address [facility] Phon e Number POC RST [facility] INPATIENT LABS [address] [facility] [address] [address] (ABNORMAL) ACT (Activated Clotting Time), POCT (04/18/2018 12:53 PM SEAM PRESS OPERATOR) P athologist Signature Activated 213 (H) 84 - 139 04/18/[address] Clotting Time, sec 12:57 PM SEAM PRESS OPERATOR [facility] POCT INPATIENT LABS Specimen Anatomical Collection Method Collection Time Receive d Time (Source) Location / / Volume Laterality Blood 04/18/2018 12:53 04/18/2018 PM SEAM PRESS OPERATOR 12:57 PM SEAM PRESS OPERATOR Unknown Provider LAB POCT ORDERABLES - DEVICE Performing Organization Address [facility] Phon e Number POC RST [facility] INPATIENT LABS [address] [facility] [address] [address] Glucose, POCT (04/18/2018 12:51 PM SEAM PRESS OPERATOR) P athologist Signature Glucose, POCT, 124 70 - 140 04/18/[address] B mg/dL 12:52 PM SEAM PRESS OPERATOR [facility] INPATIENT LABS Site ARTLINE 04/18/[address] 12:52 PM SEAM PRESS OPERATOR [facility] INPATIENT LABS Specimen Anatomical Collection Method Collection Time Receive d Time (Source) Location / / Volume Laterality Blood 04/18/2018 12:51 04/18/2018 PM SEAM PRESS OPERATOR 12:53 PM SEAM PRESS OPERATOR Unknown Provider LAB POCT ORDERABLES-MANUAL Performing Organization Address [facility] Phon e Number POC RST [facility] INPATIENT LABS [address] [facility] [address] [address] (ABNORMAL) ACT (Activated Clotting Time), POCT (04/18/2018 12:20 PM SEAM PRESS OPERATOR) P athologist Signature Activated 228 (H) 84 - 139 04/18/[address] Clotting Time, sec 12:25 PM SEAM PRESS OPERATOR [facility] POCT INPATIENT LABS Specimen Anatomical Collection Method Collection Time Receive d Time (Source) Location / / Volume Laterality Blood 04/18/2018 12:20 04/18/2018 PM SEAM PRESS OPERATOR 12:26 PM SEAM PRESS OPERATOR Unknown Provider LAB POCT ORDERABLES - DEVICE Performing Organization Address [facility] Phon e Number POC RST [facility] INPATIENT LABS [address] [facility], [place] [address] (ABNORMAL) Glucose, POCT (04/18/2018 9:07 AM SEAM PRESS OPERATOR) Analysis Performed At Patho logist Time Signature Glucose, POCT, 164 (H) 70 - 140 04/18/2018 POC [facility] B mg/dL 9:11 AM SEAM PRESS OPERATOR SERVICES Site Capillary 04/18/2018 [facility]OC [facility] LAB 9:11 AM SEAM PRESS OPERATOR SERVICES Last Intake NPO 04/18/2018 [facility]OC [facility] LAB 9:11 AM SEAM PRESS OPERATOR SERVICES Specimen Anatomical Collection Method Collection Time Receive d Time (Source) Location / / Volume Laterality Blood 04/18/2018 9:07 AM 8 9:11 SEAM PRESS OPERATOR AM SEAM PRESS OPERATOR Unknown Provider LAB POCT ORDERABLES-MANUAL Performing Organization Address City/State/ZIP Code Phon e Number POC [facility] LAB SERVICES [address] [place] [address] documented in this encounter Visit Diagnoses Diagnosis [...] PM 20 mL/hr 20 mL/hr (PLASMA-LYTE A) SEAM PRESS OPERATOR 20 mL/hr, intravenous, Continuous, Starting on Tue04/18/18 at 1430, PACU & Post-Op insulin aspart U-100 Given 04/18/2018 9:29 AM SEAM PRESS OPERATOR 2 Units Left Upper Abdomen injection [...] 10 mg (ROXICODONE) Given 04/18/2018 5:17 PM SEAM PRESS OPERATOR 10 mg 10 mg, oral, Every [...] Recently Administered Medications Times are shown in SEAM PRESS OPERATOR. Scheduled Medication Order 04/16/2018 04/17/2018 04/18/2018 [...]
--- OUTSIDE RECORDS SUMMARY | 2022-03-31 07:53 | XMS_ITS | Encounter Summary ---
:1950 Author Organization [facility] Address [address] [place] [address] Care Team Providers Name Role Phone Unavailable Primary Care Provider Unavailable Encounter Details Date Type Department Care Team Description 02/16/2018 Orders Only Department of Neurology Yessy Cohen, Restless Leg Syndrome in [facility] ariel Brock, M.P.H. (Primary Dx) [address] [facility] [place] [phone] Social History Tobacco Use Types Packs/Day [...] How often do you attend amish or pentecostalism services? 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 documented as of this encounter Plan of Treatment Not on filedocumented as of this encounter Results Ferritin (02/16/2018 1:21 PM CDT) P athologist Signature Ferritin, S 44 mcg/L 02/16/2018 [facility] 4:51 PM CDT [facility] Comment: Biotin has been identified by [...] City/State/ZIP Code Phon e Number [facility] [address], [place] [address] LAB documented in this encounter Visit Diagnoses Diagnosis Restless Leg Syndrome - Primary documented in this encounter Additional Health Concerns Assessment Noted Time PHQ-9 Depression Total Score: 3 01/03/2018 10:38 AM CD T documented as of this encounter
--- OUTSIDE RECORDS SUMMARY | 2022-03-31 07:53 | XMS_ITS | Encounter Summary ---
:1950 Author Organization [facility] Address [address] [place] [address] Care Team Providers Name Role Phone Unavailable Primary Care Provider Unavailable Encounter Details Date Type Department Care Team Description 03/24/2018 Episode Changes Department of Family January Britt, Medicine, [facility], in [address] [facility] [place] [address] Social History Tobacco Use Types [...] How often do you attend adventism or denominational services? 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
--- OUTSIDE RECORDS SUMMARY | 2022-03-31 07:54 | XMS_ITS | Encounter Summary ---
:1950 Author Organization [facility] Address [address] [place] [address] Care Team Providers Name Role Phone Unavailable Primary Care Provider Unavailable Reason for Visit Reason Comments Communication Encounter Details Date Type Department Care Team Description 09/07/2017 Clinical Communication Department of [facility] Medicine, Renee Hampton, [facility], in [place] [address] [place] [phone] Social History Tobacco Use Types Packs/Day Years [...] How often do you attend scientology or scientologist services? 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
--- OUTSIDE RECORDS SUMMARY | 2022-03-31 07:54 | XMS_ITS | Encounter Summary ---
:1950 Author Organization [facility] Address [address] [place] [address] Care Team Providers Name Role Phone Unavailable Primary Care Provider Unavailable Reason for Visit Reason Onset Date Comments Care Coordination - Referral 12/01/2017 Encounter Details Date Type Department Care Team Description 12/01/2017 Clinical Communication Department of January Britt re Coordination - Family Medicine, R, R.N. Referral [facility], in [address] [place] [phone] Social History Tobacco Use Types Packs/Day Years [...] How often do you attend druze or catholic services? 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 Telephone Encounter - January Britt R.N. - 12/13/2017 10:[address] Lacy, Can you please send this patient the letter regarding care coordination. You can use [email or web address] Please let me know if you have any questions. I will reach out to the patient after the letteris sent. Thanks, January Britt RN Clamshell Engineer Telephone Encounter - January Britt R.N. - 12/02/2017 11:04 AM CDT Noted. Will contact patient in one to two weeks for care coordination screening. Thanks, January Britt RN Clamshell Engineer Telephone Encounter - Samia Nunes L.P.N. - [...] recommend, A1C< 8? Thanks, January Britt RN Clamshell Engineer documented in this encounter Plan of Treatment Not on filedocumented as of this encounter Visit Diagnoses Not on filedocumented in this encounter Additional Health Concerns Assessment Noted Time PHQ-9 Depression Total Score: 7 07/22/2017 11:14 AM CS T documented as of this encounter
--- OUTSIDE RECORDS SUMMARY | 2022-03-31 07:54 | XMS_ITS | Encounter Summary ---
:1950 Author Organization [facility] Address [address] [place] [address] Care Team Providers Name Role Phone Unavailable Primary Care Provider Unavailable Encounter Details Date Type Department Care Team Description 12/06/2017 Hospital Encounter Department of [facility] Medicine Renee beth, Type 2 (HCC) in [place] [address] [phone] Social History Tobacco Use Types Packs/Day Years [...] How often do you attend congregation or jew services? 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 lancets [facility] [place] Dispense item 0 08/23/2014 9 covered by [...] A1c, 7.8 (H) 4.2 - 5.6 12/06/2017 [facility] B % 12:10 PM CDT [facility] LAB Comment: Hemoglobin A1c values greater than [...] Organization Address City/State/ZIP Code Phon e Number [facility] [address] [place] [address] LAB documented in this encounter Visit Diagnoses Diagnosis Diabetes Mellitus Type 2 (HCC) documented in this encounter Additional Health Concerns Assessment Noted Time PHQ-9 Depression Total Score: 7 07/22/2017 11:14 AM CS T documented as of this encounter
--- OUTSIDE RECORDS SUMMARY | 2022-03-31 07:54 | XMS_ITS | Encounter Summary ---
:1950 Author Organization [facility] Address [address] [place] [address] Care Team Providers Name Role Phone Unavailable Primary Care Provider Unavailable Reason for Referral Outpatient (Routine) - Closed Specialty Diagnoses / Procedures Referred By Contact Refer red To Contact Neurology Diagnoses Restless Leg Syndrome SHIVA Catalan [facility] Demetri Duran M.D. [address], [place] [address] Referral ID Status Reason Start Date Expiration Date Visits V isits Requested Authorized [id number] Closed Specialty 01/30/2018 01/30/2019 1 1 Services Required Encounter Details Date Type Department Care Team Description 01/30/2018 Orders Only Department of [facility] Ruthie Res tless Leg Syndrome Medicine, Renee Antonio, (Primary Dx) Clinic, in [place] [address] [place] [address] [phone] Social History Tobacco Use Types Packs/Day Years [...] How often do you attend congregation or christianity services? 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
--- OUTSIDE RECORDS SUMMARY | 2022-03-31 07:54 | XMS_ITS | Encounter Summary ---
:1950 Author Organization [facility] Address [address] [place] [address] Care Team Providers Name Role Phone Unavailable Primary Care Provider Unavailable Reason for Visit Reason Comments Follow-up 04/30/17 Dr. Dino ashley Outpatient (Routine) - Closed Specialty Diagnoses / Referred By Contact Referred To Contact Procedures Cardiovascular Diseases / Diagnoses Syncope And Near Syncope [facility] Cardiovascular Disease Renee escobedo M.D. [address] [place] [address] Referral ID Status Reason Start Date Expiration Date Visits Requ ested Visits Authorized [id number] Closed 10/27/2017 10/27/2018 1 1 Encounter Details Date Type Department Care Team Description 11/09/2017 Comprehensive Visit Department of Yessy Dumont Stress Test (Primary Dx); Cardiovascular [place] Syncope And Near Syncope; Diseases in [facility] [address] Pain Chest Atypical; [facility] Diabetes Mellitus Type 2 With Other Circ ulatory Complication Hyperglycemic (HCC); [address] [facility], Peripheral Arterial Disease (HCC) [facility] [phone] Social History Tobacco Use Types Packs/Day Years [...] How often do you attend presybeterian or temple services? 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 male who is referred to [facility] Cardiovascular Medicine for further cardiovascular evaluation. I reviewed to the recent clinical encounter notes from October 2017 as well as the prior Vascular Medicine consultation and pre anesthetic evaluation in 2017 from [facility]. Patient previously noted orthostatic lightheadedness as well [...] He will be following with Vascular at [facility] later this year; I did not arrange [...]
--- OUTSIDE RECORDS SUMMARY | 2022-03-31 07:54 | XMS_ITS | Encounter Summary ---
:1950 Author Organization [facility] Address [address] [place] [address] Care Team Providers Name Role Phone Unavailable Primary Care Provider Unavailable Reason for Visit Reason Comments Med Refill Encounter Details Date Type Department Care Team Description 12/14/2017 Refill Department of Family Medicine, Bambi Adler Med Refill [facility], in Renee Phillips M.D. [place] [address] [place] [address] [place] [address] [phone] Social History Tobacco Use Types Packs/Day Years [...] How often do you attend pentecostalism or confucianist services? 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
--- OUTSIDE RECORDS SUMMARY | 2022-03-31 07:54 | XMS_ITS | Encounter Summary ---
:1950 Author Organization [facility] Address [address] [place] [address] Care Team Providers Name Role Phone Unavailable Primary Care Provider Unavailable Reason for Referral Outpatient (Routine) - Closed Specialty Diagnoses / Procedures Referred By Contact Refer red To Contact Neurology Diagnoses Restless Leg Syndrome SHIVA Catalan [facility] Demetri Duran M.D. [address] [place] [address] Referral ID Status Reason Start Date Expiration Date Visits V isits Requested Authorized [id number] Closed Specialty 10/31/2017 10/31/2018 1 1 Services Required Reason for Visit Reason Comments Other consult recommended by pain clinic for RLS Encounter Details Date Type Department Care Team Description 10/31/2017 Office Visit Department of [facility] Ruthie Res tless Leg Syndrome Medicine, Renee Antonio, (Primary Dx) Clinic, in [place] [address] [place] [address] [phone] Social History Tobacco Use Types Packs/Day Years [...] How often do you attend religion or protestant services? 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 He did notice that when he took and extra oxycodone at bedtime he slept much better. Everett has severe peripheral vascular disease which has been treated by revascularization. The patient denies any additional questions or concerns at this time. SYSTEMS REVIEW Please see HPI for pertinent positives, otherwise rest of ROS negative. MEDICATIONS Current Outpatient Prescriptions Medication Sig Dispense Refill ??? ACCU-CHEK XIOA PLUS TEST STRP strips 6 (six) times [...] Rash itchy ??? Pregabalin Anaphylaxis swell ??? Nrttryh-Xqc-Lgc Reductase Inhibitors Myalgia PAST MEDICAL / SURGICAL [...] popliteal and /or tibial artery angioplasty/stent Notes: [id number] ??? ENDOVASCULAR ILIAC AND/OR FEMORAL AND/OR POPLITEAL AND /OR TIBIAL ARTERY ANGIOPLASTY/STENT Right08/31/2017 Endovascular iliac and/or femoral and/or popliteal and /or tibial artery angioplasty/stent Notes: [id number] ??? FEMORAL ARTERY STENT Right 08/31/2017 ??? FEMORAL ENDARTERECTOMY, PATCH ANGIOPLASTY/INTERPOSITION GRAFT WITH/WITHOUT PROFUNDOPLASTY Left 04/04/2017 Femoral endarterectomy, patch angioplasty/interposition graft with/without profundoplasty Notes: [id number] ??? NM SESTAMIBI W/DOBUTAMINE 1 DA postive [...] Name Type Priority Associated Diagnoses Order S [facility] Neurology - General Outpatient Referral Routine Restless Leg O rdered: consult (clinic) Syndrome 10/31/2017 documented as of this encounter Visit Diagnoses Diagnosis Restless Leg Syndrome - Primary documented in this encounter Additional Health Concerns Assessment Noted Time PHQ-9 Depression Total Score: 7 07/22/2017 11:14 AM CS T documented as of this encounter
--- OUTSIDE RECORDS SUMMARY | 2022-03-31 07:54 | XMS_ITS | Encounter Summary ---
:1950 Author Organization [facility] Address [address] [place] [address] Care Team Providers Name Role Phone Unavailable Primary Care Provider Unavailable Encounter Details Date Type Department Care Team Description 10/27/2017 Clinical Communication [facility] in [place] [address] [place], [place] [address] [phone] Social History Tobacco Use Types Packs/Day Years [...] How often do you attend restorationist or muslim services? 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
--- OUTSIDE RECORDS SUMMARY | 2022-03-31 07:54 | XMS_ITS | Encounter Summary ---
:1950 Author Organization [facility] Address [address] [place] [address] Care Team Providers Name Role Phone Unavailable Primary Care Provider Unavailable Encounter Details Date Type Department Care Team Description 09/30/2017 Clinical Communication Division of Vascular and Kemar Velásquez, Endovascular Surgery in [place], [place] [address] [facility] [address] [place] [address] [phone] Social History Tobacco Use Types Packs/Day Years [...] How often do you attend catholic or sabianism services? 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 I explained this to Mr. Watlon. He indicated he would wait until late [...]
--- OUTSIDE RECORDS SUMMARY | 2022-03-31 07:54 | XMS_ITS | Encounter Summary ---
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 [address] Procedures LOWER EXTREMITY ARTERIAL (MIMI) - TCPO2 (WOUND) CVD TEST LOWER ART TCP02 [address] [place] [phone] Referral ID Status Reason Start Date Expiration Date Visits Requ ested Visits Authorized [id number] Closed 01/13/2018 01/13/2019 1 1 Encounter Details Date Type Department Care Team Description 01/13/2018 Hospital Encounter Department of Kemar Velásquez Periphe ral Arterial Disease (HCC); Vascular Medicine M.B.B.S. Atherosclerosis Of [place] Arteries Of Ex tremities With Intermittent Claudication Right Leg (HCC); in [place] [address] [address] [facility] Atherosclerosis Of [place] Arteries Of Le ft Leg With Ulceration Of Unspecified Site (HCC) [place], [place] [address] [facility] [address] [place], [place] [phone] (Work) [phone] Social History Tobacco Use Types Packs/Day Years [...] How often do you attend mormonism or faith services? 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 lancets [facility] [place] [place] Dispense item 0 08/23/2014 [...] TCPO2 (WOUND) Atherosclerosis Of the resu lts [place] Arteries Of section. Extremities With Intermittent Claudication Right Leg (HCC) Atherosclerosis Of [place] Arteries Of Left Leg With Ulceration Of [...] Diagnosis Peripheral Arterial Disease (HCC) Atherosclerosis Of [place] Arteries Of Ex tremities With Intermittent Claudication Right Leg (HCC) Atherosclerosis Of [place] Arteries Of Le ft Leg With Ulceration Of Unspecified Site (HCC) documented in this encounter Additional Health Concerns Assessment Noted Time PHQ-9 Depression Total Score: 3 01/03/2018 10:38 AM CD T documented as of this encounter
--- OUTSIDE RECORDS SUMMARY | 2022-03-31 07:54 | XMS_ITS | Encounter Summary ---
:1950 Author Organization [facility] Address [address] [place] [address] Care Team Providers Name Role Phone Unavailable Primary Care Provider Unavailable Reason for Referral Outpatient (Routine) - Closed Specialty Diagnoses / Referred By Contact Referred To Contact Procedures Cardiovascular Diseases / Diagnoses Syncope And Near Syncope Nena [facility] Cardiovascular Disease Renee escobedo M.D. [address], [place] [address] Referral ID Status Reason Start Date Expiration Date Visits Requ ested Visits Authorized [id number] Closed 10/27/2017 10/27/2018 1 1 Encounter Details Date Type Department Care Team Description 10/27/2017 Orders Only Department of [facility] Ruthie Located Within [facility] [place] Medicine, Renee Antonio, Syncope (Primary Dx) Clinic, in [place] [address] [place] [phone] Social History Tobacco Use Types Packs/Day Years [...] How often do you attend mormonism or jew services? 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
--- OUTSIDE RECORDS SUMMARY | 2022-03-31 07:54 | XMS_ITS | Encounter Summary ---
:1950 Author Organization [facility] Address [address] [place] [address] Care Team Providers Name Role Phone Unavailable Primary Care Provider Unavailable Encounter Details Date Type Department Care Team Description 09/06/2017 Hospital Encounter Department of Radiology Fruehbrodt- Glenz Pain Wrist Left in [place], [facility] Renee james, [address] [facility] [place] [address] [address] [place], [place] [phone] Social History Tobacco Use Types Packs/Day [...] How often do you attend judaism or jehovah's witness services? 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 lancets [facility] Dispense item 0 08/23/2014 [...]
--- OUTSIDE RECORDS SUMMARY | 2022-03-31 07:54 | XMS_ITS | Encounter Summary ---
:[address] [facility] Address [address] [place] [address] Care Team Providers Name Role Phone Unavailable Primary Care Provider Unavailable Reason for Visit Outpatient (Routine) - Closed Specialty Diagnoses / Procedures Referred By Contact Refer red To Contact Radiology Diagnoses Peripheral Arterial Disease (HCC) Atherosclerosis Of [place] Ar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 (HCC) Atherosclerosis Of [place] Arteries Of Left Leg With Ulceration Of Unspecified Site (HCC) Kemar Velásquez M.B.BFeiS. Rst [facility] [place] 04 Peripheral Arterial Disease (HCC) Atherosclerosis Of [place] Ar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 (HCC) Atherosclerosis Of [place] Arteries Of Left Leg With Ulceration Of Unspecified Site (HCC) [address] Procedures US LOWER EXTREMITY ARTERIES BILATERAL RAD [place] [address] [place] [address] Phone: Fax: Referral ID Status Reason Start Date Expiration Date Visits Requ ested Visits Authorized [id number] Closed 01/13/2018 01/13/2019 1 1 Encounter Details Date Type Department Care Team Description 01/13/2018 Hospital Encounter Department of Kemar Velásquez Periphe ral Arterial Disease (HCC); Radiology, Santiago DavidB.SFei Atherosclerosis Of [place] Arteries Of Ex tremities With Intermittent Claudication Right Leg (HCC); Building, in [address] Atherosclerosis Of [place] Arteries Of Le ft Leg With Ulceration Of Unspecified Site (HCC) [facility] [address] [phone] [place], [place] (Work) [address] [phone] Social History Tobacco Use Types Packs/Day Years [...] How often do you attend judaism or anabaptist services? 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 lancets [facility] Atherosclerosis Of the resul ts BILATERAL outpatients) [place] Arteries Of section. Extremities With Intermittent Claudication Right Leg (HCC) Atherosclerosis Of [place] Arteries Of Left Leg With Ulceration Of [...] COMPARISON: Prior ultrasound August 08 FINDINGS Patent STEMMER MACHINE's and PFA's. Patent SFAs incl uding the [...] COMPARISON: Prior ultrasound August 08 FINDINGS Patent STEMMER MACHINE's and PFA's. Patent SFAs incl uding the [...] Diagnosis Peripheral Arterial Disease (HCC) Atherosclerosis Of [place] Arteries Of Ex tremities With Intermittent Claudication Right Leg (HCC) Atherosclerosis Of [place] Arteries Of Le ft Leg With Ulceration Of Unspecified Site (HCC) documented in this encounter Additional Health Concerns Assessment Noted Time PHQ-9 Depression Total Score: 3 01/03/2018 10:38 AM CD T documented as of this encounter
--- OUTSIDE RECORDS SUMMARY | 2022-03-31 07:54 | XMS_ITS | Encounter Summary ---
:1950 Author Organization [facility] Address [address] [place] [address] Care Team Providers Name Role Phone Elsewhere, Pcp Primary Care Provider Unavailable Encounter Details Date Type Department Care Team Description 12/19/2017 Orders Only [facility] betelizabeth Mellitus Type Medicine, ThayerRenee rodriguez, 2 (HCC) (Primary Dx) Clinic, in [place] [address] [place] [address] [phone] Social History Tobacco Use Types Packs/Day Years [...] How often do you attend jain or baptism services? 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 ?? Diagnosis should be confirmed by repeat testing. ??In diabet ic patients, HbA1c goals should be discussed with healthcar e provider. Specimen Anatomical Collection Method Collection Time Receive d Time (Source) Location / / Volume Laterality Blood (Blood, 04/21/2018 1:54 PM 04/21/20 18 3:34 Venous) BAND AID MACHINE OPERATOR PM BAND AID MACHINE OPERATOR Renee Catalan M.D. LAB BLOOD ADD-ON Performing Organization Address City/State/ZIP Code Phon e Number [facility] [address] [place] [address] LAB documented in this encounter Visit Diagnoses Diagnosis Diabetes Mellitus Type 2 (HCC) - Primary documented in this encounter Additional Health Concerns Infection Onset Date Last Indicated Resolved Time COVID19 Pending 05/08/2020 05/08/2020 05/08/2020 2:44 PM BAND AID MACHINE OPERATOR Assessment Noted Time PHQ-9 Depression Total Score: 7 07/22/2017 11:14 AM CS T documented as of this encounter Care Teams It Instructor Relationship Specialty Start Date End Date Elsewhere, Pcp PCP - General Family Medicine 01/29/20 documented as of this encounter
--- OUTSIDE RECORDS SUMMARY | 2022-03-31 07:54 | XMS_ITS | Encounter Summary ---
:1950 Author Organization [facility] Address [address] [place] [address] Care Team Providers Name Role Phone Unavailable Primary Care Provider Unavailable Encounter Details Date Type Department Care Team Description 10/07/2017 Abstract Department of Family Medicine, Provider, Historical [facility], in [place], [place] [address] [place] [address] Social History Tobacco Use [...] How often do you attend gnosticism or adventism services? 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
--- OUTSIDE RECORDS SUMMARY | 2022-03-31 07:54 | XMS_ITS | Encounter Summary ---
:1950 Author Organization [facility] Address [address] [place] [address] Care Team Providers Name Role Phone Unavailable Primary Care Provider Unavailable Encounter Details Date Type Department Care Team Description 01/25/2018 Orders Only Department of [facility] tatiannaCheryl velasquez, [facility] ariel [address] [place], [place] [facility] [place] [phone] (Wo rk) Social History Tobacco Use Types [...] How often do you attend sikhism or baptist services? 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
--- OUTSIDE RECORDS SUMMARY | 2022-03-31 07:54 | XMS_ITS | Encounter Summary ---
:1950 Author Organization [facility] Address [address] [place] [address] Care Team Providers Name Role Phone Unavailable Primary Care Provider Unavailable Reason for Visit Outpatient (Routine) - Closed Specialty Diagnoses / Procedures Referred By Contact Refer red To Contact Vascular Medicine Kemar Velásquez, M.[facility]. [facility] [address] [place] [phone] Referral ID Status Reason Start Date Expiration Date Visits Requ ested Visits Authorized [id number] Closed 10/07/2017 10/07/2018 1 1 Encounter Details Date Type Department Care Team Description 01/13/2018 Office Visit Division of Vascular Kemar Velásquez Periph eral Arterial Disease (HCC) (Primary Dx); and Endovascular M.B.B.S. Atherosclerosis Of [place] Arteries Of Le ft Leg With Ulceration Of Unspecified Site (HCC) Surgery in [place] [address] [address] [place], [place] [address] [place] [address] [place], [place] [phone] (Work) [phone] Social History Tobacco Use Types Packs/Day Years [...] How often do you attend restorationist or yazidi services? 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
--- OUTSIDE RECORDS SUMMARY | 2022-03-31 07:54 | XMS_ITS | Encounter Summary ---
:1950 Author Organization [facility] Address [address] [place] [address] Care Team Providers Name Role Phone Unavailable Primary Care Provider Unavailable Encounter Details Date Type Department Care Team Description 11/11/2017 Abstract [facility] ANGIE Pinon ea Provider, Historical [address] [place] [address] Social History Tobacco Use [...] How often do you attend shinto or roman catholic services? 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
--- OUTSIDE RECORDS SUMMARY | 2022-03-31 07:54 | XMS_ITS | Encounter Summary ---
:1950 Author Organization [facility] Address [address] [place] [address] Care Team Providers Name Role Phone Unavailable Primary Care Provider Unavailable Reason for Visit Reason Comments Med Refill Encounter Details Date Type Department Care Team Description 11/07/2017 Refill Department of Family Medicine, Bambi Adler Med Refill [facility], in [place]ene[place] M.D. [place] [address] [place] [address] [place] [address] [phone] Social History Tobacco Use Types Packs/Day Years [...] How often do you attend restoration or mormon services? 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
--- OUTSIDE RECORDS SUMMARY | 2022-03-31 07:54 | XMS_ITS | Encounter Summary ---
:1950 Author Organization [facility] Address [address] [place] [address] Care Team Providers Name Role Phone Unavailable Primary Care Provider Unavailable Reason for Visit Reason Comments Med Refill Encounter Details Date Type Department Care Team Description 09/14/2017 Refill Department of Family Medicine, Bambi Adler Med Refill [facility], in [place] M.D. [place] [address] [place] [address] [place] [address] [phone] Social History Tobacco Use Types Packs/Day Years [...] How often do you attend lutheran or roman catholic services? 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
--- OUTSIDE RECORDS SUMMARY | 2022-03-31 07:54 | XMS_ITS | Encounter Summary ---
:1950 Author Organization [facility] Address [address] [place] [address] Care Team Providers Name Role Phone Unavailable Primary Care Provider Unavailable Reason for Visit Reason Comments Med Refill Encounter Details Date Type Department Care Team Description 09/07/2017 Refill Department of Family Medicine, Bambi Adler Med Refill [facility], in [place]ene[place] M.D. [place] [address] [place] [address] [place] [address] [phone] Social History Tobacco Use Types Packs/Day Years [...] How often do you attend scientology or gnosticist services? 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
--- OUTSIDE RECORDS SUMMARY | 2022-03-31 07:54 | XMS_ITS | Encounter Summary ---
:1950 Author Organization [facility] Address [address] [place] [address] Care Team Providers Name Role Phone Unavailable Primary Care Provider Unavailable Reason for Visit Reason Comments Med Refill Encounter Details Date Type Department Care Team Description 12/26/2017 Refill Department of Family Medicine, Bambi Adler Med Refill [facility], in Renee Phillips M.D. [place] [address] [place] [address] [place] [address] [phone] Social History Tobacco Use Types Packs/Day Years [...] How often do you attend buddhist or mandaen services? 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
--- OUTSIDE RECORDS SUMMARY | 2022-03-31 07:54 | XMS_ITS | Encounter Summary ---
:1950 Author Organization [facility] Address [address] [place] [address] Care Team Providers Name Role Phone Unavailable Primary Care Provider Unavailable Reason for Visit Reason Comments Other review medications Appointment Request (Routine) - Closed Specialty Diagnoses / Procedures Referred By Contact Refer red To Contact Family Medicine Referral ID Status Reason Start Date Expiration Date Visits Requ ested Visits Authorized [id number] Closed 12/23/2017 12/23/2018 1 Encounter Details Date Type Department Care Team Description 01/03/2018 [facility], Renee Antonio, (Primary Dx) Clinic, in [place] [address] [place] [phone] Social History Tobacco Use Types Packs/Day Years [...] How often do you attend judaism or hinduism services? 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 Onesimo is regularly seen at the [facility] in [place] where they manage his chronic narcotic medications. [...] day. ) 15 mL 3 ??? lancets [facility] Dispense item covered by pt ins. 250.02 [...] Rash itchy ??? Pregabalin Anaphylaxis swell ??? Ujgjecb-Xvn-Xai Reductase Inhibitors Myalgia PAST MEDICAL / SURGICAL [...] popliteal and /or tibial artery angioplasty/stent Notes: [id number] ??? ENDOVASCULAR ILIAC AND/OR FEMORAL AND/OR POPLITEAL AND /OR TIBIAL ARTERY ANGIOPLASTY/STENT Right08/31/2017 Endovascular iliac and/or femoral and/or popliteal and /or tibial artery angioplasty/stent Notes: [id number] ??? FEMORAL ARTERY STENT Right 08/31/2017 ??? FEMORAL ENDARTERECTOMY, PATCH ANGIOPLASTY/INTERPOSITION GRAFT WITH/WITHOUT PROFUNDOPLASTY Left 04/04/2017 Femoral endarterectomy, patch angioplasty/interposition graft with/without profundoplasty Notes: [id number] ??? NM SESTAMIBI W/DOBUTAMINE 1 DA postive [...] follow with the Pain Management facility in [place] Follow up The patient will contact the [...]
--- OUTSIDE RECORDS SUMMARY | 2022-03-31 07:54 | XMS_ITS | Encounter Summary ---
:1950 Author Organization [facility] Address [address] [place] [address] Care Team Providers Name Role Phone Unavailable Primary Care Provider Unavailable Reason for Visit Reason Comments Hypotension gets dizzy and black outs Encounter Details Date Type Department Care Team Description 10/21/2017 Office Visit Department of [facility] tatiannaJanett Per dominikhersurinder Arterial Medicine, Renee Antonio, Disease (HCC) (Primary Clinic, in [place] Dx) [place] [address] [place], [place] [phone] Social History Tobacco Use Types Packs/Day [...] How often do you attend latter-day or cheondoism services? 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 ) 15 mL 3 ??? lancets [facility] [place] Dispense item [...] Rash itchy ??? Pregabalin Anaphylaxis swell ??? Geekele-Mgz-Tub Reductase Inhibitors Myalgia PAST MEDICAL / SURGICAL [...] popliteal and /or tibial artery angioplasty/stent Notes: [id number] ??? ENDOVASCULAR ILIAC AND/OR FEMORAL AND/OR POPLITEAL AND /OR TIBIAL ARTERY ANGIOPLASTY/STENT Right08/31/2017 Endovascular iliac and/or femoral and/or popliteal and /or tibial artery angioplasty/stent Notes: [id number] ??? FEMORAL ARTERY STENT Right 08/31/2017 ??? FEMORAL ENDARTERECTOMY, PATCH ANGIOPLASTY/INTERPOSITION GRAFT WITH/WITHOUT PROFUNDOPLASTY Left 04/04/2017 Femoral endarterectomy, patch angioplasty/interposition graft with/without profundoplasty Notes: [id number] ??? NM SESTAMIBI W/DOBUTAMINE 1 DA postive [...] echo Will obtain sestamibi scan at the [facility] and refer to our ladle cleaner, Dr. Santos Harris. Follow up The patient will contact the clinic with any new or worsening symptoms. This document serves as a record of services personally performed by Renee Lacy MD. It was created on their behalf by Marie Peterson, a trained medical data analyst. The creation of this record is based [...]
--- OUTSIDE RECORDS SUMMARY | 2022-03-31 07:54 | XMS_ITS | Encounter Summary ---
:1950 Author Organization [facility] Address [address] [place] [address] Care Team Providers Name Role Phone Unavailable Primary Care Provider Unavailable Encounter Details Date Type Department Care Team Description 09/07/2017 Orders Only Department of [facility] Radha velasquez, [facility], [facility] in [facility] ariel [address] [place] [address] [place] [phone] (Wo rk) Social History Tobacco Use Types [...] often do you attend oriental orthodox or yazdanism services? 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
--- OUTSIDE RECORDS SUMMARY | 2022-03-31 07:54 | XMS_ITS | Encounter Summary ---
:1950 Author Organization [facility] Address [address] [place] [address] Care Team Providers Name Role Phone Unavailable [...] How often do you attend methodist or bahai services? 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
--- OUTSIDE RECORDS SUMMARY | 2022-03-31 07:54 | XMS_ITS | Encounter Summary ---
:1950 Author Organization [facility] Address [address] [place] [address] Care Team Providers Name Role Phone Unavailable Primary Care Provider Unavailable Reason for Referral Outpatient (Routine) - Closed Specialty Diagnoses / Procedures Referred By Contact Refer red To Contact Vascular Medicine Kemar Vel[facility]quez 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 Patent SFAs incl uding the [...] Prior ultrasound August 08 018 FINDINGS Patent IT COMMUNICATIONS MANAGER's and PFA's. 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
--- OUTSIDE RECORDS SUMMARY | 2022-03-31 07:54 | XMS_ITS | Encounter Summary ---
:1950 Author Organization [facility] Address [address] [place] [address] Care Team Providers Name Role Phone Unavailable Primary Care Provider Unavailable Reason for Visit Reason Comments Med Refill Encounter Details Date Type Department Care Team Description 11/24/2017 Refill Department of Family Medicine, Bambi Adler Med Refill [facility], in Renee Phillips M.D. 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
--- OUTSIDE RECORDS SUMMARY | 2022-03-31 07:55 | XMS_ITS | Encounter Summary ---
:1950 Author Organization [facility] Address [address] [place] [address] Care Team Providers Name Role Phone Unavailable [...] How often do you attend jew or adventism services? 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
--- OUTSIDE RECORDS SUMMARY | 2022-03-31 07:55 | XMS_ITS | Encounter Summary ---
:1950 Author Organization [facility] Address [address] [place] [address] Care Team Providers Name Role Phone Unavailable [...] often do you attend oriental orthodox or church services? 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
--- OUTSIDE RECORDS SUMMARY | 2022-03-31 07:55 | XMS_ITS | Encounter Summary ---
:1950 Author Organization [facility] Address [address] [place] [address] Care Team Providers Name Role Phone Unavailable Primary Care Provider Unavailable Encounter Details Date Type Department Care Team Description 07/30/2017 Orders Only Department of [facility] Radha velasquez, Medicine, [facility] in [facility] rotary engraver [address] [place] [address] [place] [phone] (Wo rk) Social History Tobacco Use Types [...] How often do you attend taoist or judaism services? 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
--- OUTSIDE RECORDS SUMMARY | 2022-03-31 07:55 | XMS_ITS | Encounter Summary ---
:1950 Author Organization [facility] Address [address] [place] [address] Care Team Providers Name Role Phone Renee Catalan M.D. Primary Care Provider [phone] Encounter Details Date Type Department Care Team [...] How often do you attend judaism or advent services? 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 PCP - General Family Medicine 04/11/17 07/18/[address] [phone] documented as of this encounter
--- OUTSIDE RECORDS SUMMARY | 2022-03-31 07:55 | XMS_ITS | Encounter Summary ---
:1950 Author Organization [facility] Address [address] [place] [address] Care Team Providers Name Role Phone Renee Catalan M.D. Primary Care Provider [phone] Encounter Details Date Type Department Care Team [...] How often do you attend jain or mu-ism services? 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 documented in this encounter Results VASCULAR SURGERY IMAGE EXAM (05/27/2017 4:10 PM INSPECTOR BALL POINTS) Specimen (Source) Anatomical Collection Method Collection Time Re ceived Time Location / / Volume Laterality 05/27/2017 4:07 PM INSPECTOR BALL POINTS Narrative IIMS - 05/27/2017 4:10 PM INSPECTOR BALL POINTS This order has been created and auto-finalized to support the import of images acquired without order. The clini ammy documentation to support these images can be found on the encounter dioni t produced images. Provider Not In System IMG NON RAD IMAGING PROCEDUR ES Performing Organization Address City/State/ZIP Code Phon e Number IIOR IIMS NA documented in this encounter Visit Diagnoses Not on filedocumented in this encounter Additional Health Concerns Assessment Noted Time PHQ-9 Depression Total Score: 6 12/22/2016 10:26 AM CD T documented as of this encounter Care Teams Orthophotography Technician Relationship Specialty Start Date End Date Renee Catalan M.D. PCP - General Family Medicine 04/11/17 07/18/[address] [phone] documented as of this encounter
--- OUTSIDE RECORDS SUMMARY | 2022-03-31 07:55 | XMS_ITS | Encounter Summary ---
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 Hyperlipidemia [place] [address] [place], [place] [phone] Social History Tobacco Use Types Packs/Day Years [...] How often do you attend yazidi or advent services? 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 lancets [facility] Dispense [...] AST (Aspartate Aminotransferase) (07/26/2017 8:55 AM CDT) [facility] Method Time Signature Aspartate 26 8 - 48 07/26/2017 [facility] Aminotransferase U/L 11:01 AM CDT [facility] Specimen Anatomical Collection Method Collection Time Receive d Time (Source) Location / / Volume Laterality Blood (Blood, 07/26/2017 8:55 AM 07/27/19 18 Venous) CDT 10:44 AM CDT Renee Catalan M.D. LAB BLOOD ADD-ON Performing Organization Address City/[facility] [address]/[facility] Phon e Number [facility] [place] [address] [place] [address] LAB (ABNORMAL) Hemoglobin A1c (07/26/2017 8:55 AM CDT) P athologist Signature Hemoglobin A1c, 9.1 (H) 4.2 - 5.6 07/26/2017 [facility] B % 11:19 AM CDT [facility] Comment: Hemoglobin A1c values greater than or eq ual to 6.5 percent are diagnostic for diabetes mellitus. ?? Diagnosis should be confirmed by repeat testing. ??In diabet ic patients, HbA1c goals should be discussed with [facility] e provider. Specimen Anatomical Collection Method Collection Time Receive d Time (Source) Location / / Volume Laterality Blood (Blood, 07/26/2017 8:55 AM 07/27/19 18 Venous) CDT 10:44 AM CDT Renee Catalan M.D. LAB BLOOD ADD-ON Performing Organization Address City/[facility] [address]/ZIP Code Phon e Number [facility] [place] [address] [place] [address] LAB (ABNORMAL) Lipid Panel (07/26/2017 8:55 AM CDT) P athologist Signature Cholesterol, 148 mg/dL 07/26/2017 [facility] Total 11:01 AM CDT [facility] Comment: ----REFERENCE VALUE---- Desirable: < 200 Borderline high: 200 - 239 High: > or = 240 Triglycerides 249 (H) mg/dL 07/26/2017 11:01 AM CDT [facility] Comment: ----REFERENCE VALUE---- Normal: <150 Borderline high: 150-199 High: 200-499 Very high: > or =500 Cholesterol, HDL, S 40 >=40 mg/dL 07/26/2017 11:01 AM CDT [facility] LAB Calculated LDL 58 mg/dL 07/26/2017 11:01 AM CDT [facility] [place] [facility] Comment: ----REFERENCE VALUE---- Desirable: <100 Above Desirable: 100-129 Borderline high: 130-159 High: 160-189 Very high: > or =190 Cholesterol, Non-HDL, 108 mg/dL 07/26/2017 11:01 A M CDT [facility] [place] B Comment: ----REFERENCE VALUE---- Desirable: <130 Above Desirable: 130-159 Borderline high: 160-189 High: 190-219 Very high: > or =220 Specimen Anatomical Collection Method Collection Time Receive d Time (Source) Location / / Volume Laterality Blood (Blood, 07/26/2017 8:55 AM 07/27/19 18 Venous) CDT 10:44 AM CDT Renee Catalan M.D. LAB BLOOD ADD-ON Performing Organization Address City/State/ZIP Code Phon e Number [facility] [address] [place] [address] LAB (ABNORMAL) BMP (Basic Metabolic Panel) (07/26/2017 8:55 AM CDT) Analysis Performed At Patho logist Time Signature Potassium, S 5.1 3.6 - 5.2 07/26/2017 [facility] mmol/L 11:01 AM T [facility] LAB Sodium, S 142 135 - 145 07/26/2017 [facility] mmol/L 11:01 AM [facility] Chloride, S 99 98 - 107 07/26/2017 [facility] mmol/L 11:01 AM [facility] LAB Bicarbonate, S 30 (H) 22 - 29 07/26/2017 [facility] mmol/L 11:01 AM [facility] Anion Gap 13 7 - 15 07/26/2017 [facility] 11:01 AM [facility] BUN (Blood Urea 26 (H) 8 - 24 07/26/2017 [facility] Nitrogen), S mg/dL 11:01 AM T [facility] [employer] [facility] Creatinine 1.99 (H) 0.74 - 07/26/2017 [facility] 1.35 mg/dL 11:01 AM [facility] eGFR 34 (L) >=60 07/26/2017 [facility] Non-Black/Afric mL/min/BSA 11:01 AM [facility] [employer] [facility] [employer] Comment: ----ADDITIONAL INFORMATION---- Estimated GFR calculated using the 2009 CKD_EPI creatinine equation. eGFR Black/ 40 (L) >=60 mL/min/BSA 07/26/2017 11:0 1 AM [facility] [employer] LAB Comment: ----ADDITIONAL INFORMATION---- Estimated GFR calculated using the 2009 CKD_EPI creatinine equation. Calcium, Total, S 9.2 8.9 - 10.1 mg/dL 07/26/2017 11:0 1 AM [facility] Glucose, S 135 70 - 140 mg/dL 07/26/2017 11:01 AM [facility] Specimen Anatomical Collection Method Collection Time Receive d Time (Source) Location / / Volume Laterality Blood (Blood, 07/26/2017 8:55 AM 07/27/19 18 Venous) CDT 10:44 AM CDT Renee Catalan M.D. LAB BLOOD ADD-ON Performing Organization Address City/State/ZIP Code Phon e Number [facility] [address] [place] [address] LAB documented in this encounter Visit Diagnoses Diagnosis Diabetes Mellitus Type 2 With Diabetic P olyneuropathy (HCC) Hypertension And Chronic Kidney Disease Stage 1 To 4 Hyperlipidemia documented in this encounter Additional Health Concerns Assessment Noted Time PHQ-9 Depression Total Score: 7 07/22/2017 11:14 AM CS T documented as of this encounter
--- OUTSIDE RECORDS SUMMARY | 2022-03-31 07:55 | XMS_ITS | Encounter Summary ---
:1950 Author Organization [facility] Address [address] [place] [address] Care Team Providers Name Role Phone Unavailable Primary Care Provider Unavailable Encounter Details Date Type Department Care Team Description 07/26/2017 Hospital Encounter Department of [facility] Diabete s Mellitus Type Laboratory Medicine belinda, 2 With Kylah inman in Renee Phillips M.D. 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 lancets [facility] Dispense item 0 [...] Microalbumin, Random, Urine (07/26/2017 8:52 AM CDT) [facility] Method Time Signature Microalbumin 81.2 mg/L 07/26/2017 [facility] 11:34 AM [facility] Creatinine 53 mg/dL 07/26/2017 [facility] 11:34 AM T [facility] Albumin/Creatinin 153 (H) <17 mg/g 07/26/2017 [facility] e Ratio 11:34 AM [facility] LAB Specimen Anatomical Collection Method Collection Time Receive d Time (Source) Location / / Volume Laterality Urine (Urine, 07/26/2017 8:52 AM 07/27/19 18 Clean Catch) CDT 10:44 AM CDT Renee Catalan M.D. LAB URINE ORDERABLES Performing Organization Address City/State/ZIP Code Phon e Number [facility] [address] [place] [address] LAB documented in this encounter Visit Diagnoses Diagnosis Diabetes Mellitus Type 2 With Diabetic P olyneuropathy (HCC) documented in this encounter Additional Health Concerns Assessment Noted Time PHQ-9 Depression Total Score: 7 07/22/2017 11:14 AM CS T documented as of this encounter
--- OUTSIDE RECORDS SUMMARY | 2022-03-31 07:55 | XMS_ITS | Encounter Summary ---
:1950 Author Organization [facility] Address [address] [place] [address] Care Team Providers Name Role Phone Renee Catalan M.D. Primary Care Provider [phone] Encounter Details Date Type Department Care Team [...] How often do you attend amish or orthodoxy services? 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 Male 03/24/2021 8:13 PM EMT documented as of this encounter Medications at [...] times a day injection before meals. lancets [facility] [place] Dispense item covered 0 08/23/2014 1 by [...] documented as of this encounter Care Teams Yardage Tufting Machine Operator Relationship Specialty Start Date End Date Renee Catalan M.D. PCP - General Family Medicine 04/11/17 07/18/[address] [phone] documented as of this encounter
--- OUTSIDE RECORDS SUMMARY | 2022-03-31 07:55 | XMS_ITS | Encounter Summary ---
:1950 Author Organization [facility] Address [address] [place] [address] Care Team Providers Name Role Phone Unavailable Primary Care Provider Unavailable Reason for Visit Reason Comments Med Refill Encounter Details Date Type Department Care Team Description 08/02/2017 Refill Department of Family Medicine, Bambi Adler Med Refill [facility], in Renee Phillips M.D. [place] [address] [place] [address] [place] [address] [phone] Social History Tobacco Use Types Packs/Day Years [...] How often do you attend adventism or tenriism services? 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
--- OUTSIDE RECORDS SUMMARY | 2022-03-31 07:55 | XMS_ITS | Encounter Summary ---
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 [address] [place] [phone] Referral ID Status Reason Start Date Expiration Date Visits Requ ested Visits Authorized [id number] Closed 02/25/2017 08/24/2017 1 1 Encounter Details Date Type Department Care Team Description 07/22/2017 Office Visit Department of [facility] Rosa Zacarias APRN, C.N.P. [address] [place] [phone] Hypertension And Chronic Kidney Disease Stage 1 To 4 (Primary Dx); Medicine, [place] Renee Catalan M.D. [address] [place] [phone] Diabetes Mellitus Type 2 With Diabetic P olyneuropathy (HCC); Clinic, in [place], Diabet es Mellitus Type 2 With Other Circulatory Complication Hyperglycemic (HCC); [place] [facility]ential [facility]; [address] [facility] [facility] [place] [phone] Social History Tobacco Use Types Packs/Day Years [...] How often do you attend sikhism or roman catholic services? 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 documented as of this encounter Last Filed Vital Signs Vital Sign Reading Time Taken Comments Blood Pressure 108/80 07/22/2017 11:04 AM CARDIOVASCULAR OPERATING ROOM NURSE Pulse 76 07/22/2017 11:04 AM CARDIOVASCULAR OPERATING ROOM NURSE Temperature 36.9 ??C (98.4 ??F) 07/22/2017 11:04 AM CARDIOVASCULAR OPERATING ROOM NURSE Respiratory Rate 16 07/22/2017 11:04 AM CARDIOVASCULAR OPERATING ROOM NURSE Oxygen Saturation - - Inhaled Oxygen Concentration - - Weight 77 kg (169 lb 12.1 oz) 07/22/2017 11:04 AM CARDIOVASCULAR OPERATING ROOM NURSE Height 173 cm (5' 8.11) 07/22/2017 11:04 AM CARDIOVASCULAR OPERATING ROOM NURSE Body Mass Index 25.73 07/22/2017 11:04 AM CARDIOVASCULAR OPERATING ROOM NURSE documented in this encounter Progress Notes Renee [...] He follows with a pain clinic in [place]. He occasionally needs to take short- acting [...] Rash itchy ??? Pregabalin Anaphylaxis swell ??? Nnetptk-Ajs-Mmf Reductase Inhibitors Myalgia PAST MEDICAL / SURGICAL [...] popliteal and /or tibial artery angioplasty/stent Notes: [id number] ??? FEMORAL ENDARTERECTOMY, PATCH ANGIOPLASTY/INTERPOSITION GRAFT WITH/WITHOUT PROFUNDOPLASTY Left 04/04/2017 Femoral endarterectomy, patch angioplasty/interposition graft with/without profundoplasty Notes: [id number] ??? NM SESTAMIBI W/DOBUTAMINE 1 DA postive [...] disease He follows with Vascular medicine at [facility]. #3 Hyperlipidemia When he returns for labs [...] He follows with a pain clinic in [place]. Follow up The patient will contact the clinic with any new or worsening symptoms. This document serves as a record of services personally performed by Renee Lacy MD. It was created on their behalf by Marie Peterson, a trained medical or surgical instrument maker. The creation of this record is based on the scribe's personal observations and the provider's statements to them. This document has been parul cked and approved by the attending provider. documented in this encounter Plan of Treatment Not on filedocumented as of this encounter Results AST (Aspartate Aminotransferase) (07/26/2017 8:55 AM CDT) [facility] Method Time Signature Aspartate 26 8 - 48 07/26/2017 [facility] Aminotransferase U/L 11:01 AM CDT [facility] [place] [facility] Specimen Anatomical Collection Method Collection Time Receive d Time (Source) Location / / Volume Laterality Blood (Blood, 07/26/2017 8:55 AM 07/27/19 18 Venous) CDT 10:44 AM CDT Renee Catalan M.D. LAB BLOOD ADD-ON Performing Organization Address [facility] Phon e Number [facility] [address] [place] [phone] LAB (ABNORMAL) Hemoglobin A1c (07/26/2017 8:55 AM CDT) athologist Signature Hemoglobin A1c, 9.1 (H) 4.2 - 5.6 07/26/2017 [facility] B % 11:19 AM CDT [facility] LAB Comment: Hemoglobin A1c values greater than or eq ual to 6.5 percent are diagnostic for diabetes mellitus. ?? Diagnosis should be confirmed by repeat testing. ??In diabet ic patients, HbA1c goals should be discussed with [facility] provider. Specimen Anatomical Collection Method Collection Time Receive d Time (Source) Location / / Volume Laterality Blood (Blood, 07/26/2017 8:55 AM 07/27/19 18 Venous) CDT 10:44 AM CDT Renee Catalan M.D. LAB BLOOD ADD-ON Performing Organization Address [facility]/ZIP Code Phon e Number [facility] [address] [place] [phone] LAB (ABNORMAL) Lipid Panel (07/26/2017 8:55 AM CDT) P athologist Signature Cholesterol, 148 mg/dL 07/26/2017 [facility] Total 11:01 AM CDT [facility] LAB Comment: ----REFERENCE VALUE---- Desirable: < 200 Borderline high: 200 - 239 High: > or = 240 Triglycerides 249 (H) mg/dL 07/26/2017 11:01 AM CDT [facility] [place] LAB Comment: ----REFERENCE VALUE---- Normal: <150 Borderline high: 150-199 High: 200-499 Very high: > or =500 Cholesterol, HDL, S 40 >=40 mg/dL 07/26/2017 11:01 AM CDT [facility] [place] [facility] Calculated LDL 58 mg/dL 07/26/2017 11:01 AM CDT [facility] Comment: ----REFERENCE VALUE---- Desirable: <100 Above Desirable: 100-129 Borderline high: 130-159 High: 160-189 Very high: > or =190 Cholesterol, Non-HDL, 108 mg/dL 07/26/2017 11:01 A M CDT [facility] [place] B Comment: ----REFERENCE [...] Organization Address City/State/ZIP Code Phon e Number [facility] [address] [place] [address] LAB (ABNORMAL) BMP (Basic Metabolic Panel) (07/26/2017 8:55 AM CDT) Analysis Performed At Patho logist Time Signature Potassium, S 5.1 3.6 - 5.2 07/26/2017 [facility] mmol/L 11:01 AM [facility] Sodium, S 142 135 - 145 07/26/2017 [facility] mmol/L 11:01 AM [facility] Chloride, S 99 98 - 107 07/26/2017 [facility] mmol/L 11:01 AM [facility] Bicarbonate, S 30 (H) 22 - 29 07/26/2017 [facility] mmol/L 11:01 AM [facility] Anion Gap 13 7 - 15 07/26/2017 [facility] 11:01 AM [facility] BUN (Blood Urea 26 (H) 8 - 24 07/26/2017 [facility] Nitrogen), S mg/dL 11:[address] [facility] [employer] [facility] Creatinine 1.99 (H) 0.74 - 07/26/2017 [facility] 1.35 mg/dL 11:[address] [facility] [employer] [facility] eGFR 34 (L) >=60 07/26/2017 [facility] Non-Black/Afric mL/min/BSA 11:01 AM [facility] Comment: ----ADDITIONAL INFORMATION---- Estimated GFR calculated using the 2009 CKD_EPI creatinine equation. eGFR Black/ 40 (L) >=60 mL/min/BSA 07/26/2017 11:0 1 AM [facility] [employer] [facility] Comment: ----ADDITIONAL INFORMATION---- Estimated GFR calculated using the 2009 CKD_EPI creatinine equation. Calcium, Total, S 9.2 8.9 - 10.1 mg/dL 07/26/2017 11:0 1 AM [facility] [employer] [facility] Glucose, S 135 70 - 140 mg/dL 07/26/2017 11:01 AM [facility] [employer] [facility] Specimen Anatomical Collection Method Collection Time Receive d Time (Source) Location / / Volume Laterality Blood (Blood, 07/26/2017 8:55 AM 07/27/19 18 Venous) CDT 10:44 AM CDT Renee Catalan M.D. LAB BLOOD ADD-ON Performing Organization Address City/State/ZIP Code Phon e Number [facility] [employer] [address] [place] [phone] LAB (ABNORMAL) Microalbumin, Random, Urine (07/26/2017 8:52 AM CDT) [facility] gist Method Time Signature Microalbumin 81.2 mg/L 07/26/2017 [facility] 11:34 AM [facility] Creatinine 53 mg/dL 07/26/2017 [facility] 11:34 AM [facility] Albumin/Creatinin 153 (H) <17 mg/g 07/26/2017 [facility] e Ratio 11:34 AM [facility] Specimen Anatomical Collection Method Collection Time Receive d Time (Source) Location / / Volume Laterality Urine (Urine, 07/26/2017 8:52 AM 07/27/19 18 Clean Catch) CDT 10:44 AM CDT Renee Catalan M.D. LAB URINE ORDERABLES Performing Organization Address City/State/ZIP Code Phon e Number [facility] [address] [place] [phone] LAB documented in this encounter Visit Diagnoses [...]
--- OUTSIDE RECORDS SUMMARY | 2022-03-31 07:55 | XMS_ITS | Encounter Summary ---
:1950 Author Organization [facility] Address [address] [place] [address] Care Team Providers Name Role Phone Unavailable Primary Care Provider Unavailable Reason for Visit Reason Comments Med Refill Encounter Details Date Type Department Care Team Description 08/04/2017 Refill Department of Family Medicine, Bambi Chula Med Refill [facility] [address] [place] [address] [place] [address] [facility] [phone] Social History Tobacco Use Types Packs/Day Years [...] How often do you attend restorationism or hoahaoism services? 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
--- OUTSIDE RECORDS SUMMARY | 2022-03-31 07:55 | XMS_ITS | Encounter Summary ---
:1950 Author Organization [facility] Address [address] [place] [address] Care Team Providers Name Role Phone Unavailable [...] How often do you attend lutheran or hindu services? 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 Pulse 71 09/01/2017 8:00 AM Value from artplus. CDT Temperature - - Respiratory Rate 16 09/01/2017 3:33 AM Value from William hartplus. CDT Oxygen Saturation - - Inhaled [...] (three) times a day with meals. lancets [facility] Dispense item 0 08/23/2014 9 covered by [...] Results Glucose, POCT (09/01/2017 6:28 AM CDT) [facility] gist Method Time Signature Glucose, 115 70 - 140 [facility] POCT, B MG/DL LABORATORIES [facility] Site Capillary [facility] Last Intake > 4 hours [facility] Specimen Anatomical Collection Method Collection Time Receive d Time (Source) Location / / Volume Laterality 09/01/2017 6:28 AM 8 6:28 CDT AM CDT Historical Provider LAB POCT ORDERABLES-MANUAL Performing Organization Address City/State/ZIP Code Phon e Number [facility] LABORATORIES - [address] [address] [facility] (ABNORMAL) Electrolyte (Chem 4) Panel (09/01/2017 4:16 AM CDT) [facility] Method Time Signature Chloride, S 101 98 - 107 [facility] MMOL/L LABORATORIES - [facility] HX Bicarbonate, 26 22 - 29 [facility] P/S MMOL/L LABORATORIES - [facility] Sodium, S 141 135 - 145 [facility] MMOL/L LABORATORIES - [facility] Potassium, S 4.8 3.6 - 5.2 [facility] MMOL/L LABORATORIES - [facility] Creatinine 1.5 (H) 0.8 - 1.3 [facility] MG/DL LABORATORIES - [facility] eGFR 47 (L) >60 [facility] Non-Black/Afric ML/MIN/BS LABORATORIES - [facility] eGFR 57 (L) >60 [facility] Black/ ML/MIN/BS [facility] - [facility] BUN (Blood Urea 19 8 - 24 [facility] Nitrogen), S MG/DL [facility] Anion Gap 14 7 - 15 [facility] Glucose, S 143 (H) 70 - 140 [facility] MG/DL [facility] Creatinine 1.5 (H) 0.8 - 1.3 [facility] MG/DL [facility] - [facility] eGFR 47 (L) >60 [facility] Non-Black/Afric ML/MIN/BS [facility] - [facility] eGFR-Black/Afri 57 (L) >60 [facility] can Macedonian ML/MIN/BS [facility] - [facility] Specimen Anatomical Collection Method Collection Time Receive d Time (Source) Location / / Volume Laterality 09/01/2017 4:16 AM 8 4:16 CDT AM CDT Thais Saldivar APRN C.N.P., M.S. LAB B LOOD ADD-ON Performing Organization Address City/State/ZIP Code Phon e Number [facility] LABORATORIES - [address] [address] [facility] (ABNORMAL) Glucose, POCT (08/31/2017 9:28 PM CDT) [facility] Method Time Signature Glucose, 272 (H) 70 - 140 [facility] POCT, B MG/DL LABORATORIES - [facility] Site Capillary [facility] Last Intake 3-4 hours [facility] Specimen Anatomical Collection Method Collection Time Receive d Time (Source) Location / / Volume Laterality 08/31/2017 9:28 PM 8 9:28 CDT PM CDT Historical Provider LAB POCT ORDERABLES-MANUAL Performing Organization Address [facility] Phon e Number [facility] LABORATORIES - [address] [place], [place] [address] [facility] (ABNORMAL) Glucose, POCT (08/31/2017 4:38 PM CDT) [facility] [employer] Method Time Signature Glucose, 180 (H) 70 - 140 [facility] POCT, B MG/DL LABORATORIES - [facility] Site Capillary [facility] Last Intake 2-3 hours [facility] Specimen Anatomical Collection Method Collection Time Receive d Time (Source) Location / / Volume Laterality 08/31/2017 4:38 PM 8 4:38 CDT PM CDT Historical Provider LAB POCT ORDERABLES-MANUAL Performing Organization Address City/[facility] Code Phon e Number [facility] LABORATORIES - [address] [address] [facility] (ABNORMAL) Creatinine with Estimated GFR (08/31/2017 12:58 PM CDT) [facility] Method Time Signature Creatinine 1.6 (H) 0.8 - 1.3 [facility] MG/DL LABORATORIES - [facility] eGFR 44 (L) >60 [facility] Non-Black/Afric ML/MIN/BS LABORATORIES - [facility] eGFR 53 (L) >60 [facility] Black/ ML/MIN/BS LABORATORIES [facility] Creatinine 1.6 (H) 0.8 - 1.3 [facility] MG/DL LABORATORIES - [facility] eGFR 44 (L) >60 [facility] Non-Black/Afric ML/MIN/BS LABORATORIES - [facility] eGFR-Black/Afri 53 (L) >60 [facility] can Macedonian ML/MIN/BS LABORATORIES [facility] Specimen Anatomical Collection Method Collection Time Receive d Time (Source) Location / / Volume Laterality 08/31/2017 12:58 08/31/2017 PM CDT 12:58 PM CDT Dick Robbins M.D. LAB BLOOD ADD-ON Performing Organization Address City/State/ZIP Code Phon e Number [facility] LABORATORIES - [address] [place], [place] [address] [facility] (ABNORMAL) CBC with Differential (08/31/2017 12:58 PM CDT) Patholo gist Method Time Signature Erythrocytes 3.71 (L) 4.32 - [facility] 5.72 LABORATORIES - X10(12)/L [facility] MCV 90.0 81.2 - [facility] 95.1 [place] LABORATORIES - [facility] Lymphocytes 1.96 0.90 - [facility] 2.90 LABORATORIES - X10(9)/L [facility] Monocytes 1.34 (H) 0.30 - [facility] 0.90 LABORATORIES - X10(9)/L [facility] Hemoglobin 11.3 (L) 13.5 - [facility] 17.5 G/DL [facility] Hematocrit 33.4 (L) 38.8 - [facility] 50.0 % [facility] RBC Distrib 13.7 11.8 - [facility] Width 15.6 % [facility] Platelet Count 231 150 - 450 [facility] X10(9)/L LABORATORIES [facility] Leukocytes 11.1 (H) 3.5 - [facility] 10.5 LABORATORIES - X10(9)/L [facility] Neutrophils 7.38 (H) 1.70 - [facility] 7.00 LABORATORIES - X10(9)/L [facility] Eosinophils 0.42 0.05 - [facility] 0.50 LABORATORIES - X10(9)/L [facility] Basophils 0.04 0.00 - [facility] 0.30 LABORATORIES - X10(9)/L [facility] Specimen Anatomical Collection Method Collection Time Receive d Time (Source) Location / / Volume Laterality 08/31/2017 12:58 08/31/2017 PM CDT 12:58 PM CDT Dick Robbins M.D. LAB BLOOD ADD-ON Performing Organization Address City/State/[facility] Code Phon e Number [facility] LABORATORIES - [address] [address] [facility] Potassium (08/31/2017 12:58 PM CDT) P athologist Signature Potassium, S 4.7 3.6 - 5.2 [facility] MMOL/L LABORATORIES [facility] Specimen Anatomical Collection Method Collection Time Receive d Time (Source) Location / / Volume Laterality 08/31/2017 12:58 08/31/2017 PM CDT 12:58 PM CDT Dick Robbins M.D. LAB BLOOD ADD-ON Performing Organization Address City/[facility]/ZIP Code Phon e Number [facility] LABORATORIES - [address] [place], [place] [address] [facility] Glucose, POCT (08/31/2017 12:10 PM CDT) [facility] gist Method Time Signature Last Intake NPO [facility] Glucose, 125 70 - 140 [facility] POCT, B MG/DL [facility] Site Capillary [facility] Specimen Anatomical Collection Method Collection Time Receive d Time (Source) Location / / Volume Laterality 08/31/2017 12:10 08/31/2017 PM CDT 12:10 PM CDT Historical Provider LAB POCT ORDERABLES-MANUAL Performing Organization Address City/[facility]/ZIP Code Phon e Number [facility] LABORATORIES - [address] [address] [facility] Glucose, POCT (08/31/2017 10:40 AM CDT) [facility] Method Time Signature Glucose, 117 70 - 140 [facility] POCT, B MG/DL [facility] Site Capillary [facility] Specimen Anatomical Collection Method Collection Time Receive d Time (Source) Location / / Volume Laterality 08/31/2017 10:40 08/31/2017 AM CDT 10:40 AM CDT Historical Provider LAB POCT ORDERABLES-MANUAL Performing Organization Address City/[facility] Phon e Number [facility] - [address] [address] [facility] Cardiac Biomarker Panel (08/31/2017 10:16 AM CDT) [facility] gist Method Time Signature Troponin T, 15 <=15 NG/L [facility] Baseline, 5th LABORATORIES - gen [facility] Troponin T, 2 14 <=15 NG/L [facility] hr, 5th gen LABORATORIES - [facility] Troponin T, 6 . [facility] hr, 5th gen LABORATORIES - [facility] 2H Delta -1 NG/L [facility] - [facility] 2H Delta No Change [facility] Specimen Anatomical Collection Method Collection Time Receive d Time (Source) Location / / Volume Laterality 08/31/2017 10:16 08/31/2017 AM CDT 10:16 AM CDT Dick Robbins M.D. LAB BLOOD ADD-ON Performing Organization Address City/State/ZIP Code Phon e Number [facility] LABORATORIES - [address] [address] [facility] (ABNORMAL) Creatinine with Estimated GFR (08/31/2017 10:16 AM CDT) [facility] gist Method Time Signature eGFR-Black/Afri 53 (L) >60 [facility] can Macedonian ML/MIN/BS LABORATORIES - A [facility] Creatinine 1.6 (H) 0.8 - 1.3 [facility] MG/DL LABORATORIES - [facility] eGFR 44 (L) >60 [facility] Non-Black/Afric ML/MIN/BS LABORATORIES - an Macedonian A [facility] Creatinine 1.6 (H) 0.8 - 1.3 [facility] MG/DL LABORATORIES - [facility] Specimen Anatomical Collection Method Collection Time Receive d Time (Source) Location / / Volume Laterality 08/31/2017 10:16 08/31/2017 AM CDT 10:16 AM CDT Dick Robbins M.D. LAB BLOOD ADD-ON Performing Organization Address City/State/ZIP Code Phon e Number [facility] LABORATORIES - [address] [address] [facility] ECG 12 Lead (08/31/2017 10:15 AM CDT) Specimen (Source) Anatomical Collection Method Collection Time Re ceived Time Location / / Volume Laterality 08/31/2017 10:15 AM CDT Narrative HX MIGUE CONVERSION - 08/31/2017 10: 39 AM CDT [id number] 10:15 VENTRICULAR RATE 66 Normal sinus rhythm Right bundle branch block When compared with ECG of 04-APR-2017 14 :34, QT has shortened [id number]^JAYDON BONILLA^MK Procedure Note Mk Willard M.D. - 09/08/2017Formatt ing of this note might be different from the original. [id number] 10:15 VENTRICULAR RATE 66 Normal sinus rhythm Right bundle branch block When compared with ECG of 04-APR-2017 14 :34, QT has shortened [id number]^JAYDON BONILLA^MK Kemar Rodrigues. ECG ORDERABLES Performing Organization Address City/State/ZIP Code Phon e Number HX MIGUE CONVERSION V&IRAD Vascular & Intervention (08/31/2017 9:28 [...] Operative Note of sa me date in [facility] LastWord. Electronically signed by: ?? [...] Operative Note of sa me date in [facility] LastWord. Electronically signed by: no valid signature 31-Aug-2017 16:24 Kemar Reyes IMG IR PROCEDURES (ABNORMAL) ACT (Activated Clotting Time), POCT (08/31/2017 8:44 AM CDT) [facility] gist Method Time Signature Activated 264 (H) 84 - 139 [facility] Clotting Time, SEC LABORATORIES - POCT [facility] Specimen Anatomical Collection Method Collection Time Receive d Time (Source) Location / / Volume Laterality 08/31/2017 8:44 AM 8 8:44 CDT AM CDT Historical Provider LAB POCT ORDERABLES - DEVICE Performing Organization Address City/State/ZIP Code Phon e Number [facility] LABORATORIES - [address] [place], [place] [address] [facility] documented in this encounter Visit Diagnoses Not on filedocumented in this encounter Additional Health Concerns Assessment Noted Time PHQ-9 Depression Total Score: 7 07/22/2017 11:14 AM CS T documented as of this encounter
--- OUTSIDE RECORDS SUMMARY | 2022-03-31 07:55 | XMS_ITS | Encounter Summary ---
:1950 Author Organization [facility] Address [address] [place] [address] Care Team Providers Name Role Phone Unavailable Primary Care Provider Unavailable Encounter Details Date Type Department Care Team Description 08/30/2017 Abstract Department of Family Medicine, Provider, Historical [facility], in [place], [place] [address] [place] [address] Social History Tobacco Use [...] How often do you attend presybeterian or holiness services? 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
--- OUTSIDE RECORDS SUMMARY | 2022-03-31 07:55 | XMS_ITS | Encounter Summary ---
:1950 Author Organization [facility] Address [address] [place] [address] Care Team Providers Name Role Phone Unavailable [...] How often do you attend mandaen or hinduism services? 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
--- OUTSIDE RECORDS SUMMARY | 2022-03-31 07:55 | XMS_ITS | Encounter Summary ---
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
--- OUTSIDE RECORDS SUMMARY | 2022-03-31 07:55 | XMS_ITS | Encounter Summary ---
:1950 Author Organization [facility] Address [address] [place] [address] Care Team Providers Name Role Phone Renee Catalan M.D. Primary Care Provider [phone] Encounter Details Date Type Department Care Team [...] often do you attend oriental orthodox or mormon services? 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 documented in this encounter Results ANESTHESIOLOGY IMAGE EXAM (05/31/2017 8:14 AM JET DYEING MACHINE TENDER) Specimen (Source) Anatomical Collection Method Collection Time Re ceived Time Location / / Volume Laterality 05/31/2017 8:13 AM JET DYEING MACHINE TENDER Narrative IIMS - 05/31/2017 8:14 AM JET DYEING MACHINE TENDER This order has been created and auto-finalized to support the import of images acquired without order. The clini ammy documentation to support these images can be found on the encounter dioni t produced images. Provider Not In System IMG NON RAD IMAGING PROCEDUR ES Performing Organization Address City/State/ZIP Code Phon e Number IIAK IIMS NA documented in this encounter Visit Diagnoses Not on filedocumented in this encounter Additional Health Concerns Assessment Noted Time PHQ-9 Depression Total Score: 6 12/22/2016 10:26 AM CD T documented as of this encounter Care Teams Deputy Sheriff K9 Handler Relationship Specialty Start Date End Date Renee Catalan M.D. PCP - General Family Medicine 04/11/17 07/18/[address] [phone] documented as of this encounter
--- OUTSIDE RECORDS SUMMARY | 2022-03-31 07:55 | XMS_ITS | Encounter Summary ---
:1950 Author Organization [facility] Address [address] [place] [address] Care Team Providers Name Role Phone Unavailable Primary Care Provider Unavailable Reason for Visit Reason Comments Follow-up post vasular surgical isabelle mcfarlane at [facility] Encounter Details Date Type Department Care Team Description 09/06/2017 Office Visit Department of Family Fruehtatianna-Lane Hype rlipidemia (Primary Dx); Medicine, Renee Snider, Edwar s Mellitus Type 2 (HCC); Clinic, in [place] Pain Wrist Left; [place] [address] Peripheral Arterial Disease (HCC) [address] [place] [phone] Social History Tobacco Use Types Packs/Day [...] How often do you attend mandaeism or tenriism services? 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 He was hospitalized 08/31-09/01/[address] [facility] in [place] after undergoing right superficial femoral artery stent [...] day. ) 15 mL 3 ??? lancets [place] [facility] Dispense item covered by [...] Rash itchy ??? Pregabalin Anaphylaxis swell ??? Pjfieds-Prd-Wjv Reductase Inhibitors Myalgia PAST MEDICAL / SURGICAL [...] popliteal and /or tibial artery angioplasty/stent Notes: [id number] ??? FEMORAL ENDARTERECTOMY, PATCH ANGIOPLASTY/INTERPOSITION GRAFT WITH/WITHOUT PROFUNDOPLASTY Left 04/04/2017 Femoral endarterectomy, patch angioplasty/interposition graft with/without profundoplasty Notes: [id number] ??? NM SESTAMIBI W/DOBUTAMINE 1 DA postive [...] and Plavix. Followup with Vascular medicine at [facility] as recommended. #2 Type II diabetes [...] behalf by Marie Peterson, a trained medical terminologist. The creation of this record is based [...] (H) 4.2 - 5.6 12/06/2017 [facility] B % 12:[address] [facility] LAB Comment: Hemoglobin A1c values greater [...] Organization Address City/State/ZIP Code Phon e Number [facility] [address] [place] [address] LAB DX Wrist Left 2 Views (09/06/2017 [...]
--- OUTSIDE RECORDS SUMMARY | 2022-03-31 07:55 | XMS_ITS | Encounter Summary ---
:[address] [facility] Address [address] [place] [address] Care Team Providers Name Role Phone Renee Catalan M.D. Primary Care Provider [phone] Encounter Details Date Type Department Care Team Description 07/01/2017 Abstract Department of Family Medicine, Provider, Historical [facility], in [place], [place] [address] [place] [address] Social History Tobacco Use Types Packs/Day [...] How often do you attend temple or scientologist services? 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 PCP - General Family Medicine 04/11/17 07/18/[address] [phone] documented as of this encounter
--- OUTSIDE RECORDS SUMMARY | 2022-03-31 07:55 | XMS_ITS | Encounter Summary ---
:1950 Author Organization [facility] Address [address] [place] [address] Care Team Providers Name Role Phone Renee Catalan M.D. Primary Care Provider [phone] Encounter Details Date Type Department Care Team [...] How often do you attend bahai or zoroastrian services? 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 Male 03/24/2021 8:13 PM TAPPER BIT documented as of this encounter Last Filed Vital Signs Vital Sign Reading Time Taken Comments Blood Pressure 147/64 05/27/2017 3:35 PM TAPPER BIT Pulse 62 05/27/2017 10:45 AM TAPPER BIT Temperature - - Respiratory Rate 16 05/27/2017 3:35 PM TAPPER BIT Oxygen Saturation - - Inhaled Oxygen Concentration - - Weight 75.6 kg (166 lb 10.7 oz) 05/27/2017 6:19 AM TAPPER BIT Height 176 cm (5' 9.29) 05/27/2017 6:19 AM TAPPER BIT Body Mass Index 24.41 05/27/2017 6:19 AM TAPPER BIT documented in this encounter Medications at Time [...] times a day injection before meals. [facility] Disp[facility] item covered 0 08/23/2014 1 by [...] Draftsperson Relationship Specialty Start Date End Date Renee Catalan M.D. PCP - General Family Medicine 04/11/17 07/18/[address] [phone] documented as of this encounter
--- OUTSIDE RECORDS SUMMARY | 2022-03-31 07:55 | XMS_ITS | Encounter Summary ---
:1950 Author Organization [facility] Address [address] [place] [address] Care Team Providers Name Role Phone Unavailable Primary Care Provider Unavailable Reason for Visit Reason Comments Communication Encounter Details Date Type Department Care Team Description 07/30/2017 Clinical Communication Department of [facility] Medicine, [place] Renee syed, [place], in [place] [address] [facility] [place] [phone] Social History Tobacco Use Types Packs/Day Years [...] How often do you attend denominational or jain services? 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
--- OUTSIDE RECORDS SUMMARY | 2022-03-31 07:56 | XMS_ITS | Encounter Summary ---
:1950 Author Organization [facility] Address [address] [place] [address] Care Team Providers Name Role Phone Renee Catalan M.D. Primary Care Provider [phone] Reason for Visit Reason Comments Follow-up tcm appointment for post severino h [facility] stay discharged on 04/05/2017 for critcal limb ischemia le ft leg Pre-op Exam for proceedure scheduled for 04/29/2017 at [facility] Appointment Request (Routine) - Closed Specialty Diagnoses / Procedures Referred By Contact Refer red To Contact Family Medicine Referral ID Status Reason Start Date Expiration Date Visits Requ ested Visits Authorized [id number] Closed 04/06/2017 10/03/2017 1 1 Encounter Details Date Type Department Care Team Description 04/11/2017 Office Visit Department of Family [place] Preop erative Exam (Primary Dx); Medicine, Renee Herndon, Athero 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); Clinic, in [place] Anemia Iron Deficiency [place] [address] [facility] [place] [id number] Social History Tobacco Use Types Packs/Day [...] Date Recorded Male 03/24/2021 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 documented as of this encounter Last Filed Vital Signs Vital Sign Reading Time Taken Comments Blood Pressure 90/62 04/11/2017 3:02 PM CONSULTING PROPERTY MANAGER Pulse 64 04/11/2017 3:02 PM CONSULTING PROPERTY MANAGER Temperature 35.7 ??C (96.3 ??F) 04/11/2017 3:02 PM CONSULTING PROPERTY MANAGER Respiratory Rate 20 04/11/2017 3:02 PM CONSULTING PROPERTY MANAGER Oxygen Saturation 95% 04/11/2017 3:02 PM CONSULTING PROPERTY MANAGER room ai r Inhaled Oxygen Concentration - - Weight 74.9 kg (165 lb 2 oz) 04/11/2017 3:02 PM CONSULTING PROPERTY MANAGER Height 173 cm (5' 8.11) 04/11/2017 3:02 PM CONSULTING PROPERTY MANAGER Body Mass Index 25.03 04/11/2017 3:02 PM CONSULTING PROPERTY MANAGER documented in this encounter H&P Notes Renee Catalan M.D. - 04/11/2017 3:00 PM CST CHIEF COMPLAINT/ REASON FOR VISIT TCM hospitalization followup and preoperative exam. Hospitalized at: [facility]. Admission date: 04/04/2017. Discharge date: 04/05/2017. Contacted by clinic nursing staff on: 04/06/2017. Proposed surgery date: 04/29/2017. Proposed surgery: Amputation of left great toe. Location: [facility]. HISTORY OF PRESENT ILLNESS Onesimo is a 67-year-old male who presents to the clinic today for above concerns. He was hospitalized 04/04-04/05/2017 at [facility] in [place] after undergoing left femoral artery endarterectomy with patch angioplasty and left endovascular superficial femoral artery stent x 2 on 04/04/2017. Since being discharged he has been doing well. Onesimo states that pain in his left leg has improved since surgery. He is tentatively scheduled for amputation of his left great toe on 04/29/2017 in [place]. He continues to smoke but has an [...] times a day before meals. ??? lancets [facility] Dispense item covered by pt ins. 250.02 [...] Allergies Allergen Reactions ??? Morphine Itching ??? Vgwzbxx-Bgx-Rby Reductase Inhibitors Myalgia SYSTEMS REVIEW Please see [...] is retired. 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 FAMILY HISTORY Family [...] Continue to follow with vascular medicine at [facility] as recommended. #2 Preoperative evaluation for surgery. [...] behalf by Marie Peterson, a trained medical receptionist. The creation of this record is based on the scribe's personal observations and the provider's statements to them. This document has been parul cked and approved by the attending provider. ULTING PROPERTY MANAGER documented in this encounter Plan of Treatment Not on filedocumented as of this encounter Procedures Procedure Name Priority Date/Time Associated Diagnosis Comme nts CBC WITH Routine 04/11/2017 4:15 Preoperative Exa m Results for this DIFFERENTIAL, B PM CONSULTING PROPERTY MANAGER Atherosclerosis procedure are in Arteriosclerosis the results Obliterans Lower section. Extremity With Claudication Lef t (HCC) Anemia Iron Deficiency documented in this encounter Results (ABNORMAL) CBC with Differential (04/11/2017 4:15 PM CONSULTING PROPERTY MANAGER) [facility] Method Time Signature Hemoglobin 10.7 (L) 13.2 - 04/11/2017 [facility] 16.6 g/dL 4:24 PM [facility] Hematocrit 32.3 (L) 38.3 - 04/11/2017 [facility] 48.6 % 4:24 PM [facility] Erythrocytes 3.32 (L) 4.35 - 04/11/2017 [facility] 5.65 4:24 PM CONSULTING PROPERTY MANAGER HEALTH x10(12)/L [facility] MCV 97.3 78.2 - 04/11/2017 [facility] 97.9 fL 4:24 PM [facility] RBC Distrib Width 13.8 11.8 - 04/11/2017 [facility] 14.5 % 4:24 PM [facility] Platelet Count 395 (H) 135 - 317 04/11/2017 [facility] x10(9)/L 4:24 PM [facility] Leukocytes 15.0 (H) 3.4 - 9.6 04/11/2017 [facility] x10(9)/L 4:24 PM [facility] Neutrophils 9.68 (H) 1.56 - 04/11/2017 [facility] 6.45 4:24 PM CONSULTING PROPERTY MANAGER HEALTH x10(9)/L [facility] Lymphocytes 2.74 0.95 - 04/11/2017 [facility] 3.07 4:24 PM CONSULTING PROPERTY MANAGER HEALTH x10(9)/L SYSTEM- [facility] Monocytes 1.61 (H) 0.26 - 04/11/2017 [facility] 0.81 4:24 PM CONSULTING PROPERTY MANAGER HEALTH x10(9)/L [facility]- [facility] Eosinophils 0.89 (H) 0.03 - 04/11/2017 [facility] 0.48 4:24 PM CONSULTING PROPERTY MANAGER HEALTH x10(9)/L SYSTEM- [facility] Basophils 0.03 0.01 - 04/11/2017 [facility] 0.08 4:24 PM CONSULTING PROPERTY MANAGER HEALTH x10(9)/L SYSTEM- [facility] Specimen Anatomical Collection Method Collection Time Receive d Time (Source) Location / / Volume Laterality Blood (Blood, 04/11/2017 4:15 PM 04/11/20 17 4:16 Venous) CONSULTING PROPERTY MANAGER PM CONSULTING PROPERTY MANAGER Renee Catalan M.D. LAB BLOOD ADD-ON Performing Organization Address City/State/ZIP Code Phon e Number [facility] [address] [place] [address] 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 PCP - General Family Medicine 04/11/17 07/18/[address] [phone] documented as of this encounter
--- OUTSIDE RECORDS SUMMARY | 2022-03-31 07:56 | XMS_ITS | Encounter Summary ---
:1950 Author Organization [facility] Address [address] [place] [address] Care Team Providers Name Role Phone Irma Zacarias APRN C.N.P. Primary Care Provider [phone] Encounter Details Date Type Department Care Team [...] How often do you attend protestant or latter day services? 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 lancets [facility] Dispense item 0 08/23/2014 9 covered by [...] documented as of this encounter Care Teams Media Analytics Manager Relationship Specialty Start Date End Date Irma Zacarias, JULIÁN, C.N.P. PCP - General 10/28/16 04/05/[address] [phone] documented as of this encounter
--- OUTSIDE RECORDS SUMMARY | 2022-03-31 07:56 | XMS_ITS | Encounter Summary ---
:1950 Author Organization [facility] Address [address] [place] [address] Care Team Providers Name Role Phone Renee Catalan M.D. Primary Care Provider Encounter Details Date Type Department Care Team Description 03/24/2017 Abstract Department of Family Medicine, Provider, Historical [facility], in [place], [place] [address] [facility], [place] [phone] Social History Tobacco Use Types Packs/Day [...] How often do you attend jain or temple services? 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 PCP - General Family Medicine 04/11/17 07/18/[address] [phone] documented as of this encounter
--- OUTSIDE RECORDS SUMMARY | 2022-03-31 07:56 | XMS_ITS | Encounter Summary ---
:1950 Author Organization [facility] Address [address] [place] [address] Care Team Providers Name Role Phone Renee Catalan M.D. Primary Care Provider [phone] Encounter Details Date Type Department Care Team [...] How often do you attend anglican or restorationism services? 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 documented in this encounter Results VASCULAR IMAGE EXAM (04/19/2017 4:10 PM COMPANY TRUCK DRIVER) Specimen (Source) Anatomical Collection Method Collection Time Re ceived Time Location / / Volume Laterality 04/19/2017 4:10 PM COMPANY TRUCK DRIVER Narrative [facility] - 04/19/2017 4:12 PM COMPANY TRUCK DRIVER This order has been created and auto-finalized [...] documented as of this encounter Care Teams Professional Healthcare Representative Relationship Specialty Start Date End Date Renee Catalan M.D. PCP - General Family Medicine 04/11/17 07/18/[address] [phone] documented as of this encounter
--- OUTSIDE RECORDS SUMMARY | 2022-03-31 07:56 | XMS_ITS | Encounter Summary ---
:1950 Author Organization [facility] Address [address] [place] [address] Care Team Providers Name Role Phone Irma Zacarias APRN, C.N.P. Primary Care Provider [phone] Encounter Details Date Type Department Care Team Description 03/24/2017 Refill Department of Family Medicine, Giselle Zacarias APRN, [facility], in [place], [place] [address] [place] [address] [place] [address] [phone] Social History Tobacco Use Types Packs/Day Years [...] How often do you attend muslim or oriental orthodox services? 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 - 03/24/2017 11:09 AM BUSPERSON Refill request received from [facility] for pen needles. Pended ERSON documented in this encounter Plan of Treatment Not on filedocumented as of this encounter Visit Diagnoses Not on filedocumented in this encounter Additional Health Concerns Assessment Noted Time PHQ-9 Depression Total Score: 6 12/22/2016 10:26 AM CD T documented as of this encounter Care Teams Sizing End Bander Relationship Specialty Start Date End Date Irma Zacarias, JULIÁN, C.N.P. PCP - General 10/28/16 04/05/17 [address], [place] [phone] documented as of this encounter
--- OUTSIDE RECORDS SUMMARY | 2022-03-31 07:56 | XMS_ITS | Encounter Summary ---
:1950 Author Organization [facility] Address [address] [place] [address] Care Team Providers Name Role Phone Irma aZcarias APRN C.N.P. Primary Care Provider [phone] Encounter Details Date Type Department Care Team Description 04/04/2017 - 04/05/2017 Hospital Encounter HX [facility] Social History Tobacco Use Types Packs/Day [...] How often do you attend mandaen or mu-ism services? 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 Pulse 87 04/05/2017 3:30 PM Value from [facility]. BUSINESS ANALYST INTERN Temperature - - Respiratory Rate 20 04/05/2017 3:17 PM Value from [facility]. BUSINESS ANALYST INTERN Oxygen Saturation - - Inhaled Oxygen - - Concentration Weight 74.4 kg (164 lb 0.4 04/04/2017 4:50 PM Value fro m [facility]. oz) BUSINESS ANALYST INTERN Height 176 cm (5' 9.29) 04/04/2017 7:52 AM Vital si gn result BUSINESS ANALYST INTERN from [facility]. Body Mass Index 24.02 04/04/2017 7:52 AM BUSINESS ANALYST INTERN documented in this encounter Medications at Time [...] times injection a day before meals. lancets [facility] [...] Routine 04/05/2017 11:43 Results for this AM BUSINESS ANALYST INTERN procedure are i n the results section. GLUCOSE POCT, B Routine 04/05/2017 6:50 AM Result s for this BUSINESS ANALYST INTERN procedure are i n the results section. ELECTROLYTE (CHEM 4) Routine 04/05/2017 3:42 AM R esults for this PANEL, S/P BUSINESS ANALYST INTERN procedure are i n the results section. CBC WITHOUT Routine 04/05/2017 3:42 AM Results f or this DIFFERENTIAL, B BUSINESS ANALYST INTERN procedure ar e in the results section. GLUCOSE POCT, B Routine 04/04/2017 9:51 PM Result s for this BUSINESS ANALYST INTERN procedure are i n the results section. CARDIAC BIOMARKER Routine 04/04/2017 5:04 PM Resu lts for this PANEL, S BUSINESS ANALYST INTERN procedure are i n the results section. GLUCOSE POCT, B Routine 04/04/2017 4:50 PM Result s for this BUSINESS ANALYST INTERN procedure are i n the results section. GLUCOSE POCT, B Routine 04/04/2017 3:02 PM Result s for this BUSINESS ANALYST INTERN procedure are i n the results section. ECG Routine 04/04/2017 2:34 PM Results f or this BUSINESS ANALYST INTERN procedure are i n the results section. V&IRAD VASCULAR & Routine 04/04/2017 1:47 PM Resu lts for this INTERVENTION BUSINESS ANALYST INTERN procedure are i n the results section. ACT, POCT, B Routine 04/04/2017 12:59 Results for this PM BUSINESS ANALYST INTERN procedure are i n the results section. GLUCOSE POCT, B Routine 04/04/2017 12:57 Results for this PM BUSINESS ANALYST INTERN procedure are i n the results section. ACT, POCT, B Routine 04/04/2017 12:29 Results for this PM BUSINESS ANALYST INTERN procedure are i n the results section. ACT, POCT, B Routine 04/04/2017 11:58 Results for this AM BUSINESS ANALYST INTERN procedure are i n the results section. GLUCOSE POCT, B Routine 04/04/2017 11:57 Results for this AM BUSINESS ANALYST INTERN procedure are i n the results section. ACT, POCT, B Routine 04/04/2017 11:34 Results for this AM BUSINESS ANALYST INTERN procedure are i n the results section. GLUCOSE POCT, B Routine 04/04/2017 11:33 Results for this AM BUSINESS ANALYST INTERN procedure are i n the results section. ACT, POCT, B Routine 04/04/2017 11:08 Results for this AM BUSINESS ANALYST INTERN procedure are i n the results section. GLUCOSE POCT, B Routine 04/04/2017 11:06 Results for this AM BUSINESS ANALYST INTERN procedure are i n the results section. ACT, POCT, B Routine 04/04/2017 10:39 Results for this AM BUSINESS ANALYST INTERN procedure are i n the results section. GLUCOSE POCT, B Routine 04/04/2017 10:36 Results for this AM BUSINESS ANALYST INTERN procedure are i n the results section. GLUCOSE POCT, B Routine 04/04/2017 9:51 AM Result s for this BUSINESS ANALYST INTERN procedure are i n the results section. GLUCOSE POCT, B Routine 04/04/2017 7:34 AM Result s for this BUSINESS ANALYST INTERN procedure are i n the results section. CREATININE WITH EGFR, Routine 04/04/2017 7:21 AM Results for this S/P BUSINESS ANALYST INTERN procedure are i n the results section. documented in this encounter Results (ABNORMAL) Glucose, POCT (04/05/2017 11:43 AM BUSINESS ANALYST INTERN) [facility] [place] Method Time Signature Last Intake 3-4 hours [facility] Glucose, 226 (H) 70 - 140 [facility] POCT, B MG/DL LABORATORIES - [facility] Sample Site, Capillary [facility] Blood Gas, LABORATORIES - POCT [facility] Specimen Anatomical Collection Method Collection Time Receive d Time (Source) Location / / Volume Laterality 04/05/2017 11:43 04/05/2017 AM BUSINESS ANALYST INTERN 11:43 AM BUSINESS ANALYST INTERN Historical Provider LAB POCT ORDERABLES-MANUAL Performing Organization Address City/[facility]/ZIP Code Phon e Number [facility] LABORATORIES - [address] [place] [address] [facility] (ABNORMAL) Glucose, POCT (04/05/2017 6:50 AM BUSINESS ANALYST INTERN) Patholo gist Method Time Signature Last Intake > 4 hours [facility] Glucose, 194 (H) 70 - 140 [facility] POCT, B MG/DL LABORATORIES - [facility] Sample Site, Capillary [facility] Blood Gas, LABORATORIES - POCT [facility] Specimen Anatomical Collection Method Collection Time Receive d Time (Source) Location / / Volume Laterality 04/05/2017 6:50 AM 7 6:50 BUSINESS ANALYST INTERN AM BUSINESS ANALYST INTERN Historical Provider LAB POCT ORDERABLES-MANUAL Performing Organization Address City/[facility] Code Phon e Number [facility] LABORATORIES - [address] [place] [address] [facility] (ABNORMAL) Electrolyte (Chem 4) Panel (04/05/2017 3:42 AM BUSINESS ANALYST INTERN) P athologist Signature Sodium, S 138 135 - 145 [facility] MMOL/L [facility] Comment: Drawn From Arterial Line Potassium, S 4.4 3.6 - 5.2 MMOL/L [facility] Comment: Drawn From Arterial Line Creatinine 1.4 (H) 0.8 - 1.3 MG/DL [facility] L [facility] Comment: Drawn From Arterial Line eGFR Non-Black/ 51 (L) >60 ML/MIN/BSA [facility] Comment: Drawn From Arterial Line Anion Gap 13 7 - 15 [facility] LABORATO EPRRI [facility] Comment: Drawn From Arterial Line Glucose, S 186 (H) 70 - 140 MG/DL [facility] LA [facility] Comment: Drawn From Arterial Line Chloride, S 99 98 - 107 MMOL/L [facility] Comment: Drawn From Arterial Line HX Bicarbonate, P/S 26 22 - 29 MMOL/L [facility] Comment: Drawn From Arterial Line eGFR-Black/ >60 >60 ML/MIN/BSA [facility] S Comment: Drawn From Arterial Line BUN (Blood Urea Nitrogen), S 16 8 - 24 MG/DL [facility] S Comment: Drawn From Arterial Line Specimen Anatomical Collection Method Collection Time Receive d Time (Source) Location / / Volume Laterality 04/05/2017 3:42 AM 7 3:42 BUSINESS ANALYST INTERN AM BUSINESS ANALYST INTERN Narrative [facility] - 04/05/2017 4:57 AM BUSINESS ANALYST INTERN Drawn From Arterial Line Kemar Reyes LAB BLOOD ADD-ON Performing Organization Address City/State/ZIP Code Phon e Number [facility] - [address] [place] [address] [facility] (ABNORMAL) CBC without Differential (04/05/2017 3:42 AM BUSINESS ANALYST INTERN) [facility] Method Time Signature Erythrocytes 2.76 (L) 4.32 - [facility] 5.72 LABORATORIES - X10(12)/L [facility] Comment: Drawn From Arterial Line MCV 94.6 81.2 - 95.1 [place] [facility] Comment: Drawn From Arterial Line Leukocytes 14.9 (H) 3.5 - 10.5 X10(9)/L [facility] Comment: Drawn From Arterial Line Hemoglobin 8.7 (L) 13.5 - 17.5 G/DL [facility] Comment: Drawn From Arterial Line Hematocrit 26.1 (L) 38.8 - 50.0 % [facility] Comment: Drawn From Arterial Line RBC Distrib Width 13.2 11.8 - 15.6 % [facility] Comment: Drawn From Arterial Line Platelet Count 204 150 - 450 X10(9)/L [facility] Comment: Drawn From Arterial Line Specimen Anatomical Collection Method Collection Time Receive d Time (Source) Location / / Volume Laterality 04/05/2017 3:42 AM 7 3:42 BUSINESS ANALYST INTERN AM BUSINESS ANALYST INTERN Narrative [facility] - 04/05/2017 4:30 AM BUSINESS ANALYST INTERN Drawn From Arterial Line Kemar Reyes LAB BLOOD ADD-ON Performing Organization Address City/[facility]/ZIP Code Phon e Number [facility] LABORATORIES - [address] [address] [facility] (ABNORMAL) Glucose, POCT (04/04/2017 9:51 PM BUSINESS ANALYST INTERN) Patholo gist Method Time Signature Last Intake 2-3 hours [facility] Glucose, 236 (H) 70 - 140 [facility] POCT, B MG/DL [facility] Sample Site, Capillary [facility] Blood Gas, LABORATORIES - POCT [facility] Specimen Anatomical Collection Method Collection Time Receive d Time (Source) Location / / Volume Laterality 04/04/2017 9:51 PM 7 9:51 BUSINESS ANALYST INTERN PM BUSINESS ANALYST INTERN Historical Provider LAB POCT ORDERABLES-MANUAL Performing Organization Address City/[facility]/ZIP Code Phon e Number [facility] LABORATORIES - [address] [address] [facility] Cardiac Biomarker Panel (04/04/2017 5:04 PM BUSINESS ANALYST INTERN) P athologist Signature Troponin T, S <0.01 <0.01 [facility] NG/ML [facility] Comment: Drawn From Arterial Line Troponin T 3H, S <0.01 <0.01 NG/ML [facility] Comment: Drawn From Arterial Line Troponin Delta 0.00 NG/ML [facility] Comment: Drawn From Arterial Line Delta Interp Not Sig [facility] Comment: Drawn From Arterial Line ? No significant delta observed. ? Troponin Delta 0.00 NG/ML [facility] Comment: Drawn From Arterial Line Troponin T 6H, S <0.01 <0.01 NG/ML [facility] Comment: Drawn From Arterial Line Delta Interp Not Sig [facility] Comment: Drawn From Arterial Line ? No significant delta observed. ? Specimen Anatomical Collection Method Collection Time Receive d Time (Source) Location / / Volume Laterality 04/04/2017 5:04 PM 04/04/ 7 5:04 BUSINESS ANALYST INTERN PM BUSINESS ANALYST INTERN Narrative [facility] - 04/05/2017 12:13 AM BUSINESS ANALYST INTERN Drawn From Arterial Line Manav Castillo M.D. LAB BLOOD ADD-ON Performing Organization Address City/State/ZIP Code Phon e Number [facility] - [address] [place], [place] [address] [facility] (ABNORMAL) Glucose, POCT (04/04/2017 4:50 PM BUSINESS ANALYST INTERN) Patholo gist Method Time Signature Glucose, 161 (H) 70 - 140 [facility] POCT, B MG/DL LABORATORIES - [facility] Sample Site, Capillary [facility] Blood Gas, LABORATORIES - POCT [facility] Specimen Anatomical Collection Method Collection Time Receive d Time (Source) Location / / Volume Laterality 04/04/2017 4:50 PM 7 4:50 BUSINESS ANALYST INTERN PM BUSINESS ANALYST INTERN Historical Provider LAB POCT ORDERABLES-MANUAL Performing Organization Address City/[facility]/ZIP [facility] Phon e Number [facility] LABORATORIES - [address] [address] [facility] (ABNORMAL) Glucose, POCT (04/04/2017 3:02 PM BUSINESS ANALYST INTERN) [facility] Method Time Signature Glucose, POCT, 176 (H) 70 - 140 [facility] B MG/DL LABORATORIES - [facility] Specimen Anatomical Collection Method Collection Time Receive d Time (Source) Location / / Volume Laterality 04/04/2017 3:02 PM 7 3:02 BUSINESS ANALYST INTERN PM BUSINESS ANALYST INTERN Historical Provider LAB POCT ORDERABLES-MANUAL Performing Organization Address City/[facility] Phon e Number [facility] LABORATORIES - [address] [place] [address] [facility] ECG 12 Lead (04/04/2017 2:34 PM BUSINESS ANALYST INTERN) Specimen (Source) Anatomical Collection Method Collection Time Re ceived Time Location / / Volume Laterality 04/04/2017 2:34 PM BUSINESS ANALYST INTERN Narrative [facility] CONVERSION - 04/04/2017 2:4 0 PM BUSINESS ANALYST INTERN 04Apr2017 14:34 VENTRICULAR RATE 80 Normal sinus rhythm Left atrial enlargement Right bundle branch block Prolonged QT When compared with ECG of 04-MAR-2017 07 :18, QT has lengthened [id number]^RAYO BONILLA^SUNIL Procedure Note Sunil Meier M.D., Ph.D. - 8 04Apr2017 14:34 VENTRICULAR RATE 80 Normal sinus rhythm Left atrial enlargement Right bundle branch block Prolonged QT When compared with ECG of 04-MAR-2017 07 :18, QT has lengthened [id number]^RAYO BONILLA^SUNIL Manav Castillo M.D. ECG ORDERABLES Performing Organization Address City/[facility]/ZIP Code Phon e Number [place]X [place] CONVERSION V&IRAD Vascular & Intervention (04/04/2017 1:47 PM BUSINESS ANALYST INTERN) Anatomical Region Laterality Modality N/A X-Ray Angiography Specimen (Source) Anatomical Collection Method Collection Time Re ceived Time Location / / Volume Laterality 04/04/2017 1:47 PM BUSINESS ANALYST INTERN Narrative 04/05/2017 8:21 AM BUSINESS ANALYST INTERN 04-Apr-2017 13:47:00 ??Exam: V&IRAD Vascular & Intervention [...] Operative Note of sa me date in [facility] LastWord. Electronically signed by: ?? [...] Operative Note of sa me date in [facility] LastWord. Electronically signed by: no valid signature 05-Apr-2017 08:21 Kemar DavidB.S. IMG IR PROCEDURES (ABNORMAL) ACT (Activated Clotting Time), POCT (04/04/2017 12:59 PM BUSINESS ANALYST INTERN) [facility] gist Method Time Signature Activated 223 (H) 84 - 139 [facility] Clotting Time, SEC LABORATORIES - POCT [facility] Specimen Anatomical Collection Method Collection Time Receive d Time (Source) Location / / Volume Laterality 04/04/2017 12:59 04/04/2017 PM BUSINESS ANALYST INTERN 12:59 PM BUSINESS ANALYST INTERN Historical Provider LAB POCT ORDERABLES - DEVICE Performing Organization Address [facility] Phon e Number [facility] LABORATORIES - [address] Glucose, POCT (04/04/2017 12:57 PM BUSINESS ANALYST INTERN) P athologist Signature Glucose, POCT, 123 70 - 140 [facility] B MG/DL LABORATORIES - [facility] Specimen Anatomical Collection Method Collection Time Receive d Time (Source) Location / / Volume Laterality 04/04/2017 12:57 04/04/2017 PM BUSINESS ANALYST INTERN 12:57 PM BUSINESS ANALYST INTERN Historical Provider LAB POCT ORDERABLES-MANUAL Performing Organization Address [facility] Phon e Number [facility] LABORATORIES - [address] (ABNORMAL) ACT (Activated Clotting Time), POCT (04/04/2017 12:29 PM BUSINESS ANALYST INTERN) [facility] Method Time Signature Activated 245 (H) 84 - 139 [facility] Clotting Time, SEC LABORATORIES - POCT [facility] Specimen Anatomical Collection Method Collection Time Receive d Time (Source) Location / / Volume Laterality 04/04/2017 12:29 04/04/2017 PM BUSINESS ANALYST INTERN 12:29 PM BUSINESS ANALYST INTERN Historical Provider LAB POCT ORDERABLES - DEVICE Performing Organization Address [facility] Phon e Number [facility] LABORATORIES - [address] (ABNORMAL) ACT (Activated Clotting Time), POCT (04/04/2017 11:58 AM BUSINESS ANALYST INTERN) [facility] Method Time Signature Activated 218 (H) 84 - 139 [facility] Clotting Time, SEC LABORATORIES - POCT [facility] Specimen Anatomical Collection Method Collection Time Receive d Time (Source) Location / / Volume Laterality 04/04/2017 11:58 04/04/2017 AM BUSINESS ANALYST INTERN 11:58 AM BUSINESS ANALYST INTERN Historical Provider LAB POCT ORDERABLES - DEVICE Performing Organization Address City/[facility] Phon e Number [facility] LABORATORIES - [address] [place], [place] [address] [facility] Glucose, POCT (04/04/2017 11:57 AM BUSINESS ANALYST INTERN) P athologist Signature Glucose, POCT, 105 70 - 140 [facility] MG/DL LAB[facility]ATORIES - [facility] Specimen Anatomical Collection Method Collection Time Receive d Time (Source) Location / / Volume Laterality 04/04/2017 11:57 04/04/2017 AM BUSINESS ANALYST INTERN 11:57 AM BUSINESS ANALYST INTERN Historical Provider LAB POCT ORDERABLES-MANUAL Performing Organization Address City/State/ZIP Code Phon e Number [facility] LABORATORIES - [address] [place], [place] [address] [facility] (ABNORMAL) ACT (Activated Clotting Time), POCT (04/04/2017 11:34 AM BUSINESS ANALYST INTERN) [facility] Method Time Signature Activated 223 (H) 84 - 139 [facility] Clotting Time, SEC LABORATORIES - POCT [facility] Specimen Anatomical Collection Method Collection Time Receive d Time (Source) Location / / Volume Laterality 04/04/2017 11:34 04/04/2017 AM BUSINESS ANALYST INTERN 11:34 AM BUSINESS ANALYST INTERN Historical Provider LAB POCT ORDERABLES - DEVICE Performing Organization Address City/State/ZIP Code Phon e Number [facility] LABORATORIES - [address] [place] [address] [facility] Glucose, POCT (04/04/2017 11:33 AM BUSINESS ANALYST INTERN) P athologist Signature Glucose, POCT, 110 70 - 140 [facility] MG/DL LAB[facility]ATORIES - [facility] Specimen Anatomical Collection Method Collection Time Receive d Time (Source) Location / / Volume Laterality 04/04/2017 11:33 04/04/2017 AM BUSINESS ANALYST INTERN 11:33 AM BUSINESS ANALYST INTERN Historical Provider LAB POCT ORDERABLES-MANUAL Performing Organization Address City/State/ZIP Code Phon e Number [facility] LABORATORIES - [address] [place] [address] [facility] (ABNORMAL) ACT (Activated Clotting Time), POCT (04/04/2017 11:08 AM BUSINESS ANALYST INTERN) [facility] Method Time Signature Activated 245 (H) 84 - 139 [facility] Clotting Time, SEC LABORATORIES - POCT [facility] Specimen Anatomical Collection Method Collection Time Receive d Time (Source) Location / / Volume Laterality 04/04/2017 11:08 04/04/2017 AM BUSINESS ANALYST INTERN 11:08 AM BUSINESS ANALYST INTERN Historical Provider LAB POCT ORDERABLES - DEVICE Performing Organization Address City/[facility]/ZIP Code Phon e Number [facility] LABORATORIES - [address] [place] [address] [facility] Glucose, POCT (04/04/2017 11:06 AM BUSINESS ANALYST INTERN) [facility] Method Time Signature Glucose, POCT, 97 70 - 140 [facility] MG/DL LABORATORIES - [facility] Sample Site, ARTLINE [facility] Blood Gas, LABORATORIES - POCT [facility] Specimen Anatomical Collection Method Collection Time Receive d Time (Source) Location / / Volume Laterality 04/04/2017 11:06 04/04/2017 AM BUSINESS ANALYST INTERN 11:06 AM BUSINESS ANALYST INTERN Historical Provider LAB POCT ORDERABLES-MANUAL Performing Organization Address City/[facility]/ZIP Code Phon e Number [facility] LABORATORIES - [address] [place] [address] [facility] (ABNORMAL) ACT (Activated Clotting Time), POCT (04/04/2017 10:39 AM BUSINESS ANALYST INTERN) [facility] Signature Activated 278 (H) 84 - 139 [facility] Clotting Time, SEC LABORATORIES - POCT [facility] Specimen Anatomical Collection Method Collection Time Receive d Time (Source) Location / / Volume Laterality 04/04/2017 10:39 04/04/2017 AM BUSINESS ANALYST INTERN 10:39 AM BUSINESS ANALYST INTERN Historical Provider LAB POCT ORDERABLES - DEVICE Performing Organization Address City/[facility]/ZIP Code Phon e Number [facility] LABORATORIES - [address] [place] [address] [facility] Glucose, POCT (04/04/2017 10:36 AM BUSINESS ANALYST INTERN) P athologist Signature Glucose, POCT, 109 70 - 140 [facility] MG/DL LABORATORIES - [facility] Specimen Anatomical Collection Method Collection Time Receive d Time (Source) Location / / Volume Laterality 04/04/2017 10:36 04/04/2017 AM BUSINESS ANALYST INTERN 10:36 AM BUSINESS ANALYST INTERN Historical Provider LAB POCT ORDERABLES-MANUAL Performing Organization Address City/[facility]/ZIP Code Phon e Number [facility] LABORATORIES - [address] [place] [address] [facility] (ABNORMAL) Glucose, POCT (04/04/2017 9:51 AM BUSINESS ANALYST INTERN) [facility] Method Time Signature Glucose, POCT, 59 (L) 70 - 140 [facility] B MG/DL LABORATORIES - [facility] Sample Site, ARTLINE [facility] Blood Gas, LABORATORIES - POCT [facility] Specimen Anatomical Collection Method Collection Time Receive d Time (Source) Location / / Volume Laterality 04/04/2017 9:51 AM 7 9:51 BUSINESS ANALYST INTERN AM BUSINESS ANALYST INTERN Historical Provider LAB POCT ORDERABLES-MANUAL Performing Organization Address City/[facility] Code Phon e Number [facility] LABORATORIES - [address] [place] [place] [address] [facility] Glucose, POCT (04/04/2017 7:34 AM BUSINESS ANALYST INTERN) [facility] Method Time Signature Glucose, 77 70 - 140 [facility] POCT, B MG/DL LABORATORIES - [facility] Sample Site, Capillary [facility] Blood Gas, LABORATORIES - POCT [facility] Specimen Anatomical Collection Method Collection Time Receive d Time (Source) Location / / Volume Laterality 04/04/2017 7:34 AM 7 7:34 BUSINESS ANALYST INTERN AM BUSINESS ANALYST INTERN Historical Provider LAB POCT ORDERABLES-MANUAL Performing Organization Address City/[facility] Code Phon e Number [facility] LABORATORIES - [address] [address] [facility] (ABNORMAL) Creatinine with Estimated GFR (MDRD) (04/04/2017 7:21 AM BUSINESS ANALYST INTERN) [facility] Method [place] Signature Creatinine 1.7 (H) 0.8 - 1.3 [facility] MG/DL LABORATORIES - [facility] eGFR 41 (L) >60 [facility] Non-Black/Afric ML/MIN/BS LABORATORIES - an [place] A [facility] eGFR-Black/Afri 49 (L) >60 [facility] can [place] [facility] Specimen Anatomical Collection Method Collection Time Receive d Time (Source) Location / / Volume Laterality 04/04/2017 7:21 AM 7 7:21 BUSINESS ANALYST INTERN AM BUSINESS ANALYST INTERN Kemar Reyes LAB BLOOD ADD-ON Performing Organization Address City/State/ZIP Code Phon e Number [facility] - [address] [id number] 05 [facility] documented in this encounter Visit Diagnoses Not on filedocumented in this encounter Additional Health Concerns Assessment Noted Time PHQ-9 Depression Total Score: 6 12/22/2016 10:26 AM CD T documented as of this encounter Care Teams Sheet Metal Worker Maintenance Relationship Specialty Start Date End Date Irma Zacarias, JULIÁN, C.N.P. PCP - General 10/28/16 04/05/17 [address], [place] [address] documented as of this encounter
--- OUTSIDE RECORDS SUMMARY | 2022-03-31 07:56 | XMS_ITS | Encounter Summary ---
:1950 Author Organization [facility] Address [address] [place] [address] Care Team Providers Name Role Phone Irma Zacarias APRN C.N.P. Primary Care Provider Encounter Details Date [...] How often do you attend denominational or jew services? 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 documented in this encounter Results VASCULAR IMAGE EXAM (03/28/2017 10:50 AM PROJECT GEOPHYSICIST) Specimen (Source) Anatomical Collection Method Collection Time Re ceived Time Location / / Volume Laterality 03/28/2017 10:49 AM PROJECT GEOPHYSICIST Narrative [facility] - 03/28/2017 11:09 AM PROJECT GEOPHYSICIST This order has been created and auto-finalized [...] documented as of this encounter Care Teams Site Controller Relationship Specialty Start Date End Date Irma Zacarias, HEALTH WORKER, C.N.P. PCP - General 10/28/16 04/05/[address] [phone] documented as of this encounter
--- OUTSIDE RECORDS SUMMARY | 2022-03-31 07:56 | XMS_ITS | Encounter Summary ---
:1950 Author Organization [facility] Address [address] [place] [address] Care Team Providers Name Role Phone Renee Catalan M.D. Primary Care Provider [phone] Reason for Visit Reason Comments Communication Encounter Details Date Type Department Care Team Description 04/06/2017 Clinical Communication Department of Tono Batista Communication Medicine, [place] Jennyfer Barrios [facility], in [address] [phone] Social History Tobacco Use Types Packs/Day Years [...] often do you attend jehovah's witness or temple services? 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 - 04/26/2017 4:08 PM CST Entered in error MET COFFEE ATTENDANT documented in this encounter Plan of Treatment Not on filedocumented as of this encounter Visit Diagnoses Not on filedocumented in this encounter Additional Health Concerns Assessment Noted Time PHQ-9 Depression Total Score: 6 12/22/2016 10:26 AM CD T documented as of this encounter Care Teams Projector Operator Relationship Specialty Start Date End Date Renee Catalan M.D. PCP - General Family Medicine 04/11/17 07/18/[address] [phone] documented as of this encounter
--- OUTSIDE RECORDS SUMMARY | 2022-03-31 07:56 | XMS_ITS | Encounter Summary ---
:1950 Author Organization [facility] Address [address] [place] [address] Care Team Providers Name Role Phone Renee Catalan M.D. Primary Care Provider [phone] Encounter Details Date Type Department Care Team [...] How often do you attend orthodox or taoist services? 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 Male 03/24/2021 8:13 PM HAND SIZER documented as of this encounter Plan of Treatment Not on filedocumented as of this encounter Procedures Procedure Name Priority Date/Time Associated Diagnosis Comme nts VASCULAR SURGERY Routine 05/18/2017 2:29 PM Resul ts for this IMAGE EXAM HAND SIZER procedure are i n the results section. documented in this encounter Results VASCULAR SURGERY IMAGE EXAM (05/18/2017 2:29 PM HAND SIZER) Specimen (Source) Anatomical Collection Method Collection Time Re ceived Time Location / / Volume Laterality 05/18/2017 2:27 PM HAND SIZER Narrative [facility] - 05/18/2017 2:29 PM HAND SIZER This order has been created and auto-finalized to support the import of images acquired without order. The clini ammy documentation to support these images can be found on the encounter dioni t produced images. Provider Not In System IMG NON RAD IMAGING PROCEDUR ES Performing Organization Address City/State/ZIP Code Phon e Number IITN [facility] NA documented in this encounter Visit Diagnoses Not on filedocumented in this encounter Additional Health Concerns Assessment Noted Time PHQ-9 Depression Total Score: 6 12/22/2016 10:26 AM CD T documented as of this encounter Care Teams Irrigation Laborer Relationship Specialty Start Date End Date Renee Catalan M.D. PCP - General Family Medicine 04/11/17 07/18/[address] [phone] documented as of this encounter
--- OUTSIDE RECORDS SUMMARY | 2022-03-31 07:56 | XMS_ITS | Encounter Summary ---
:1950 Author Organization [facility] Address [address] [place] [address] Care Team Providers Name Role Phone Renee Catalan M.D. Primary Care Provider [phone] Encounter Details Date Type Department Care Team Description 05/04/2017 Abstract Department of Family Medicine in [facility] , [address] [address] Social History Tobacco Use [...] How often do you attend jain or christianity services? 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 Male 03/24/2021 8:13 PM UNDERCOATER documented as of this encounter Plan of Treatment Not on filedocumented as of this encounter Visit Diagnoses Not on filedocumented in this encounter Additional Health Concerns Assessment Noted Time PHQ-9 Depression Total Score: 6 12/22/2016 10:26 AM CD T documented as of this encounter Care Teams Academic Manager Relationship Specialty Start Date End Date Renee Catalan M.D. PCP - General Family Medicine 04/11/17 07/18/[address] [phone] documented as of this encounter
--- OUTSIDE RECORDS SUMMARY | 2022-03-31 07:56 | XMS_ITS | Encounter Summary ---
:1950 Author Organization [facility] Address [address] [place] [address] Care Team Providers Name Role Phone Renee Catalan M.D. Primary Care Provider [phone] Encounter Details Date Type Department Care Team [...] How often do you attend caodaism or mormon services? 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 FULL STACK JAVA DEVELOPER documented as of this encounter Plan of Treatment Not on filedocumented as of this encounter Procedures Procedure Name Priority Date/Time Associated Diagnosis Comme nts VASCULAR IMAGE EXAM Routine 05/18/2017 7:45 AM Re sults for this FULL STACK JAVA DEVELOPER procedure are i n the results section. documented in this encounter Results VASCULAR IMAGE EXAM (05/18/2017 7:45 AM FULL STACK JAVA DEVELOPER) Specimen (Source) Anatomical Collection Method Collection Time Re ceived Time Location / / Volume Laterality 05/18/2017 7:43 AM FULL STACK JAVA DEVELOPER Narrative [facility] - 05/18/2017 8:23 AM FULL STACK JAVA DEVELOPER This order has been created and auto-finalized to support the import of images acquired without order. The clini ammy documentation to support these images can be found on the encounter dioni t produced images. Provider Not In System IMG NON RAD IMAGING PROCEDUR ES Performing Organization Address City/State/ZIP Code Phon e Number IIKS [facility] NA documented in this encounter Visit Diagnoses Not on filedocumented in this encounter Additional Health Concerns Assessment Noted Time PHQ-9 Depression Total Score: 6 12/22/2016 10:26 AM CD T documented as of this encounter Care Teams Prepper Relationship Specialty Start Date End Date Renee Catalan M.D. PCP - General Family Medicine 04/11/17 07/18/[address] [phone] documented as of this encounter
--- OUTSIDE RECORDS SUMMARY | 2022-03-31 07:56 | XMS_ITS | Encounter Summary ---
:1950 Author Organization [facility] Address [address] [place] [address] Care Team Providers Name Role Phone Renee Catalan M.D. Primary Care Provider [phone] Encounter Details Date Type Department Care Team [...] How often do you attend restorationist or amish services? 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 Male 03/24/2021 8:13 PM VETERANS' COUNSELOR documented as of this encounter Plan of Treatment Not on filedocumented as of this encounter Procedures Procedure Name Priority Date/Time Associated Diagnosis Comme nts VASCULAR IMAGE EXAM Routine 04/19/2017 3:25 PM Re sults for this VETERANS' COUNSELOR procedure are i n the results section. documented in this encounter Results VASCULAR IMAGE EXAM (04/19/2017 3:25 PM VETERANS' COUNSELOR) Specimen (Source) Anatomical Collection Method Collection Time Re ceived Time Location / / Volume Laterality 04/19/2017 3:23 PM VETERANS' COUNSELOR Narrative [facility] - 04/19/2017 3:25 PM VETERANS' COUNSELOR This order has been created and auto-finalized [...] documented as of this encounter Care Teams Peer Health Promoter Relationship Specialty Start Date End Date Renee Catalan M.D. PCP - General Family Medicine 04/11/17 07/18/[address] [phone] documented as of this encounter
--- OUTSIDE RECORDS SUMMARY | 2022-03-31 07:56 | XMS_ITS | Encounter Summary ---
:[address] [facility] Address [address] [place] [address] Care Team Providers Name Role Phone Irma Zacarias APRN C.N.P. Primary Care Provider [phone] Encounter Details Date Type Department Care Team Description 04/04/2017 Hospital Encounter HX NO MAPPING Oracio Dougherty [address] [place], [place] [phone] Social History Tobacco Use [...] How often do you attend scientologist or islam services? Never 03/25/2021 Do you [...] at Date Recorded Male 03/24/2021 8:13 PM LABOR SPECIALIST documented as of this encounter Last Filed Vital Signs Vital Sign Reading Time Taken Comments Blood Pressure 136/66 04/04/2017 6:00 AM LABOR SPECIALIST Pulse 63 04/04/2017 6:00 AM LABOR SPECIALIST Temperature - - Respiratory Rate 18 04/04/2017 6:00 AM LABOR SPECIALIST Oxygen Saturation - - Inhaled Oxygen Concentration - - Weight 73.8 kg (162 lb 11.2 oz) 04/04/2017 6:00 AM LABOR SPECIALIST Height 175 cm (5' 8.9) 04/04/2017 6:00 AM LABOR SPECIALIST Body Mass Index 24.1 04/04/2017 6:00 AM LABOR SPECIALIST documented in this encounter Medications at [...] documented as of this encounter Care Teams Knitting Inspector Relationship Specialty Start Date End Date Irma Zacarias, JULIÁN, C.N.P. PCP - General 10/28/16 04/05/[address] [phone] documented as of this encounter
--- OUTSIDE RECORDS SUMMARY | 2022-03-31 07:56 | XMS_ITS | Encounter Summary ---
:1950 Author Organization [facility] Address [address] [place] [address] Care Team Providers Name Role Phone Irma Zacarias APRN C.N.P. Primary Care Provider [phone] Encounter Details Date Type Department Care Team [...] How often do you attend confucianist or gnosticism services? 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 RESEARCH LABORATORY TECHNICIAN documented as of this encounter Last Filed Vital Signs Vital Sign Reading Time Taken Comments Blood Pressure 175/56 03/31/2017 3:02 PM RESEARCH LABORATORY TECHNICIAN Pulse 64 03/31/2017 11:07 AM RESEARCH LABORATORY TECHNICIAN Temperature - - Respiratory Rate 16 03/31/2017 3:02 PM RESEARCH LABORATORY TECHNICIAN Oxygen Saturation - - Inhaled Oxygen Concentration - - Weight 74.8 kg (164 lb 14.5 oz) 03/31/2017 7:11 AM RESEARCH LABORATORY TECHNICIAN Height 176.5 cm (5' 9.49) 03/31/2017 7:11 AM RESEARCH LABORATORY TECHNICIAN Body Mass Index 24.01 03/31/2017 7:11 AM RESEARCH LABORATORY TECHNICIAN documented in this encounter Medications at [...] times injection a day before meals. lancets [facility] Dispense item 0 08/23/2014 9 covered by [...] documented as of this encounter Care Teams Heel Cover Splitter Relationship Specialty Start Date End Date Irma Zacarias, JULIÁN, C.N.P. PCP - General 10/28/16 04/05/[address], [place] [address] documented as of this encounter
--- OUTSIDE RECORDS SUMMARY | 2022-03-31 07:56 | XMS_ITS | Encounter Summary ---
:1950 Author Organization [facility] Address [address] [place] [address] Care Team Providers Name Role Phone Renee Catalan M.D. Primary Care Provider [phone] Encounter Details Date Type Department Care Team [...] How often do you attend sikhism or congregation services? Never 03/25/2021 Do you [...] at Date Recorded Male 03/24/2021 8:13 PM LASTING MACHINE OPERATOR documented as of this encounter [...] times a day injection before meals. lancets [facility] Dispense item covered 0 08/23/2014 1 by [...] documented as of this encounter Care Teams Wet End Supervisor Relationship Specialty Start Date End Date Renee Catalan M.D. PCP - General Family Medicine 04/11/17 07/18/[address] [phone] documented as of this encounter
--- OUTSIDE RECORDS SUMMARY | 2022-03-31 07:56 | XMS_ITS | Encounter Summary ---
:1950 Author Organization [facility] Address [address] [place] [address] Care Team Providers Name Role Phone Renee Catalan M.D. Primary Care Provider [phone] Encounter Details Date Type Department Care Team [...] How often do you attend moravian or quaker services? Never 03/25/2021 Do you [...] at Date Recorded Male 03/24/2021 8:13 PM SONAR SUBSYSTEM EQUIPMENT OPERATOR documented as of this encounter Medications [...] documented as of this encounter Care Teams Flake Miller Wheat And Oats Relationship Specialty Start Date End Date Renee Catalan M.D. PCP - General Family Medicine 04/11/17 07/18/[address] [address] documented as of this encounter
--- OUTSIDE RECORDS SUMMARY | 2022-03-31 07:56 | XMS_ITS | Encounter Summary ---
:1950 Author Organization [facility] Address [address] [place] [address] Care Team Providers Name Role Phone Renee Catalan M.D. Primary Care Provider [phone] Reason for Visit Reason Onset Date Comments hospital discharge phone call 04/06/2017 Encounter Details Date Type Department Care Team Description 04/06/2017 Clinical Communication Department of [facility] [place] discharge Family Medicine, Mayda Barrios R.N. phone [facility], in [address] [place] [phone] Social History Tobacco Use Types Packs/Day Years [...] How often do you attend yarsani or scientology services? Never 03/25/2021 Do you [...] at Date Recorded Male 03/24/2021 8:13 PM CLOTH HANDLER documented as of this encounter Miscellaneous Notes Telephone Encounter - Mayda Nagy R.NFei - 04/06/2017 10:05 AM CLOTH HANDLER @SUBJECTIVEBEGIN@ REASON FOR CALL Post-Hospital follow-up phone call with patient after Onesimo Walton discharge on 04-05-17 forCritical limb ischemia, left lower extremity, secondary to atherosclerosis [facility] Onesimo Walton notes today he is feeling [...] our clinic provided - has [facility] in [place] numbers.. Blood sugar is hosp were in [...] 04-29-17. Post-Hospital Assessment: Areas for hospital feedback: H HANDLER documented in this encounter Plan of Treatment Not on filedocumented as of this encounter Visit Diagnoses Not on filedocumented in this encounter Additional Health Concerns Assessment Noted Time PHQ-9 Depression Total Score: 6 12/22/2016 10:26 AM CD T documented as of this encounter Care Teams Print Developer Relationship Specialty Start Date End Date Renee Catalan M.D. PCP - General Family Medicine 04/06/17 04/06/17 [address], [place] [address] documented as of this encounter
--- OUTSIDE RECORDS SUMMARY | 2022-03-31 07:56 | XMS_ITS | Encounter Summary ---
:1950 Author Organization [facility] Address [address] [place] [address] Care Team Providers Name Role Phone Renee Catalan M.D. Primary Care Provider Reason for Visit Reason Comments Med Refill Encounter Details Date Type Department Care Team Description 04/12/2017 Refill Department of Family Medicine, Bambi Adler Med Refill [facility], in Renee Phillips M.D. [place] [address] [place] [address] [place], [place] [phone] Social History Tobacco Use Types Packs/Day Years [...] How often do you attend anabaptist or latter-day services? 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 PHYSICAL THER documented as of this encounter Plan of Treatment Not on filedocumented as of this encounter Visit Diagnoses Not on filedocumented in this encounter Additional Health Concerns Assessment Noted Time PHQ-9 Depression Total Score: 6 12/22/2016 10:26 AM CD T documented as of this encounter Care Teams Tax Accountant Relationship Specialty Start Date End Date Renee Catalan M.D. PCP - General Family Medicine 04/11/17 07/18/[address] [phone] documented as of this encounter
--- OUTSIDE RECORDS SUMMARY | 2022-03-31 07:56 | XMS_ITS | Encounter Summary ---
:1950 Author Organization [facility] Address [address] [place] [address] Care Team Providers Name Role Phone Irma Zacarias APRN C.N.PFei Primary Care Provider [phone] Encounter Details Date Type Department Care Team Description 03/15/2017 Abstract Department of Family Medicine, Provider, Historical [facility], in [place], [place] [address], [place] [address] [facility] [phone] Social History Tobacco Use Types Packs/Day Years [...] How often do you attend shinto or caodaism services? Never 03/25/2021 Do you [...] at Date Recorded Male 03/24/2021 8:13 PM ANNUAL GIVING DIRECTOR documented as of this encounter Plan of Treatment Not on filedocumented as of this encounter Visit Diagnoses Not on filedocumented in this encounter Additional Health Concerns Assessment Noted Time PHQ-9 Depression Total Score: 6 12/22/2016 10:26 AM CD T documented as of this encounter Care Teams Belt Builder Relationship Specialty Start Date End Date Irma Zacarias, JULIÁN, C.N.P. PCP - General 10/28/16 04/05/[address] [phone] documented as of this encounter
--- OUTSIDE RECORDS SUMMARY | 2022-03-31 07:56 | XMS_ITS | Encounter Summary ---
:1950 Author Organization [facility] Address [address] [place] [address] Care Team Providers Name Role Phone Renee Catalan M.D. Primary Care Provider [phone] Encounter Details Date Type Department Care Team [...] How often do you attend holiness or catholic services? Never 03/25/2021 Do you [...] at Date Recorded Male 03/24/2021 8:13 PM COUNTERINTELLIGENCE ANALYST documented as of this encounter Plan of Treatment Not on filedocumented as of this encounter Procedures Procedure Name Priority Date/Time Associated Diagnosis Comme nts VASCULAR IMAGE EXAM Routine 04/19/2017 3:26 PM Re sults for this COUNTERINTELLIGENCE ANALYST procedure are i n the results section. documented in this encounter Results VASCULAR IMAGE EXAM (04/19/2017 3:26 PM COUNTERINTELLIGENCE ANALYST) Specimen (Source) Anatomical Collection Method Collection Time Re ceived Time Location / / Volume Laterality 04/19/2017 3:24 PM COUNTERINTELLIGENCE ANALYST Narrative [facility] - 04/19/2017 3:26 PM COUNTERINTELLIGENCE ANALYST This order has been created and auto-finalized [...] documented as of this encounter Care Teams Mash Tub Cooker Relationship Specialty Start Date End Date Renee Catalan M.D. PCP - General Family Medicine 04/11/17 07/18/[address] [phone] documented as of this encounter
--- OUTSIDE RECORDS SUMMARY | 2022-03-31 07:57 | XMS_ITS | Encounter Summary ---
:1950 Author Organization [facility] Address [address] [place] [address] Care Team Providers Name Role Phone Irma Zacarias APRN C.N.P. Primary Care Provider [phone] Encounter Details Date Type Department Care Team Description 02/17/2017 Hospital Encounter HX [facility] ULTRASOUND Cheri Arguello M.D. [address] [place] [address] (Wo rk) Social History Tobacco [...] How often do you attend hinduism or voodoo services? Never 03/25/2021 Do you [...] at Date Recorded Male 03/24/2021 8:13 PM COSMETICS SUPERVISOR documented as of this encounter Last [...] times injection a day before meals. lancets [facility] Dispense item 0 08/23/2014 9 covered by [...] ) Other: _ Call back telephone number: [phone] _ Reason for Call: -ultrasound results_ Chief [...] language for Healthcare discussion: english_ Was an derrick boat lever operator used for this call? _no Other ( x--_ ) return call not required From: CHERI VELAZQUEZ MD To: FB Bambi Nurse; Sent: 02/17/2017 23:23:59 CDT Please notify Onesimo that the ultrasound of the abdomen did not show any aneurysm. Source: [facility] POWERCHART Document Id: [id number] documented in this encounter Plan of Treatment [...] distal ICA in ac cordance with [place] Symptomatic Carotid Endarterectomy Trial (NASCET). Procedure Note [...] distal ICA in ac cordance with [place] Symptomatic Carotid Endarterectomy Trial (NASCET). IMPRESSION: 1. [...] documented as of this encounter Care Teams [employer] Dean Relationship Specialty Start Date End Date Irma Zacarias, JULIÁN, C.N.P. PCP - General 10/28/16 04/05/17 [address] [address] documented as of this encounter
--- OUTSIDE RECORDS SUMMARY | 2022-03-31 07:57 | XMS_ITS | Encounter Summary ---
:1950 Author Organization [facility] Address [address] [place] [address] Care Team Providers Name Role Phone Irma Zacarias APRN C.N.P. Primary Care Provider [phone] Encounter Details Date Type Department Care Team Description 02/14/2017 Hospital Encounter HX [facility] ULTRASOUN Renee Lowry i, M.D. [address] [place] [address] (Wo rk) Social History Tobacco [...] How often do you attend restorationist or lutheran services? 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 CONSULTING PRACTICE DIRECTOR documented as of this encounter Last Filed [...] times injection a day before meals. lancets [facility] Dispense item 0 08/23/2014 9 covered by [...] documented as of this encounter Care Teams Soil Conservationist Relationship Specialty Start Date End Date Irma Zacarias, JULIÁN, C.N.P. PCP - General 10/28/16 04/05/[address] [phone] documented as of this encounter
--- OUTSIDE RECORDS SUMMARY | 2022-03-31 07:57 | XMS_ITS | Encounter Summary ---
:1950 Author Organization [facility] Address [address] [place] [address] Care Team Providers Name Role Phone Nato Dougherty APRN, C.N.P. Primary Care Provider [phone] Encounter Details Date Type Department Care Team Description 12/28/2016 Hospital Encounter HX FBCV FAMILYPRA Nato Dougherty APRN, C.N.P. [address] [place], [place] [phone] (Wo rk) Social History [...] How often do you attend yarsani or pentecostalism services? Never 03/25/2021 Do you [...] at Date Recorded Male 03/24/2021 8:13 PM PERFORMANCE SOLUTIONS SPECIALIST documented as of this encounter Last [...] times injection a day before meals. lancets [facility] Dispense item 0 [...] ) Other: _ Call back telephone number: [phone] Reason for Call: -Refill on Medication Chief [...] language for Healthcare discussion: Bengali Was an consultant in ergonomics and safety used for this call? No Other ( [...] to today. He can be reached at [phone] Advice/Action: Source used: ( ) Verbalizes understanding [...] back cell phone number ( ) Source: [facility] POWERCHART Document Id: [id number] Miscellaneous - Mitali Castillo, C.M.A. - 12/28/2016 10:56 AM CDT *General Message Document Contains Addenda Addendum by MITALI CASTILLO CMA on December 29, 2016 09:17:05 CDT Patient notified. Addendum by MITALI CASTILLO CMA on December 29, 2016 09:13:43 CDT I called the patient , left a message for him to please return a call to the clinic. Addendum by NATO DOUGHERTY APRN, CNP on December 28, 2016 12:02:08 CDT From: NATO DOUGHERTY APRN AGRICULTURAL EXTENSION EDUCATOR To: MITALI CASTILLO CMA; Sent: 12/28/2016 12:02:08 CDT Subject: RE: *General Message He will increase amlodipine to 10 mg daily and return for blood pressure recheck in 7-10 days. From: MITALI CASTILLO CMA To: NATO DOUGHERTY APRN AGRICULTURAL EXTENSION EDUCATOR; Sent: 12/28/2016 10:56:01 CDT Subject: *General Message Patient was in for B/P check today. I ask him to wait and talk to Nato Dougherty. Patient's B/P was high. B/P 150/68 Pulse 58 Five minutes later. B/P 168/79 Pulse 66 [facility]: [facility] SH[facility] Document Id: [id number] Miscellaneous - Mitali Castillo, C.M.A. - 12/28/2016 [...] ft 8 inch(es), 68 inch(es)) MITALI CASTILLO [facility] - 12/28/2016 10:04 CDT Source: [employer] Document Id: [id number] CDT!9 Miscellaneous - Mitali Castillo, C.M.A. - [...] CASTILLO CMA - 12/28/2016 9:51 CDT Source: [facility] LolappsCHART Document Id: [id number] CDT!9 documented in this encounter Plan of Treatment Not on filedocumented as of this encounter Visit Diagnoses Not on filedocumented in this encounter Additional Health Concerns Assessment Noted Time PHQ-9 Depression Total Score: 6 12/22/2016 10:26 AM CD T documented as of this encounter Care Teams Ladle Repairer Relationship Specialty Start Date End Date Nato Dougherty, JULIÁN, C.N.P. PCP - General 10/28/16 04/05/[address] [address] documented as of this encounter
--- OUTSIDE RECORDS SUMMARY | 2022-03-31 07:57 | XMS_ITS | Encounter Summary ---
:1950 Author Organization [facility] Address [address] [place] [address] Care Team Providers Name Role Phone Irma Zacarias APRN, C.N.P. 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 [place] [facility] Procedures FAM EST C.N.P. [address] [place] [address] Referral ID Status Reason Start Date Expiration Date Visits Requ ested Visits Authorized [id number] Closed 02/25/2017 08/24/2017 1 1 Encounter Details Date Type Department Care Team Description 02/25/2017 Orders Only Department of Family Irma Zacarias Pur e Hyperglyceridemia; Medicine, [place] JULIÁN, C.N.P. Diabetes Mellitus Type 2 With Diabetic P olyneuropathy (HCC) Clinic, in [place], [address] [place], [place] [address] [address] [place], [place] [phone] [address] (Work) [phone] Social History Tobacco Use Types Packs/Day Years [...] How often do you attend latter-day or islam services? 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 SPECIAL EVENTS DIRECTOR documented as of this encounter Plan of Treatment Scheduled Referrals Name Type Priority Associated Diagnoses Order [facility] Family Medicine Outpatient Referral Routine Diabetes [...] documented as of this encounter Care Teams Book Jacket Cover Machine Operator Relationship Specialty Start Date End Date Irma Zacarias, JULIÁN, C.N.P. PCP - General 10/28/16 04/05/[address] [address] documented as of this encounter
--- OUTSIDE RECORDS SUMMARY | 2022-03-31 07:57 | XMS_ITS | Encounter Summary ---
:1950 Author Organization [facility] Address [address] [place] [address] Care Team Providers Name Role Phone Unavailable Primary Care Provider Unavailable Encounter Details Date Type Department Care Team Description 09/03/2016 Hospital Encounter HX FBCV FAMILYPRA Cheri Santo M.D. [address], [place] [phone] (Wo rk) Social History [...] How often do you attend holiness or shinto services? 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 lancets [facility] Dispense item 0 08/23/2014 9 [...] Cortes M.D. - 09/03/2016 10:46 AM CDT [id number] CHIEF COMPLAINT/ REASON FOR VISIT Left knee [...] their behalf by Juju Ibarra, a trained biomedical equipment support specialist. The creation of this record is based on the scribe's personal observations and the provider's statements to them. This document has been ch ecked and approved by the attending provider. Cheri Quiros M.D./ Electronically Signed By: CHERI CORTES MD On: 10/07/2016 12:18 AM Source: [facility] MHSDOLBEYNONRADSYS Document Id: [id number] documented in this encounter Miscellaneous Notes Miscellaneous - Rock Chavez, L.P.N. - 09/03/2016 11:42 AM CDT Adult Drawing In Machine Tender Helper Intake/History Adult Drawing In Machine Tender Helper Intake/History Entered On: 09/03/2016 11:44 CDT Performed [...] 1.87 Body Mass Index : 24.24 kg/m2 ROKC CHAVEZ LPN - 09/03/2016 11:42 CDT General Info Information Given By : Patient Preferred Communication Mode : Verbal Languages : Guyanese Is Patient Female and 13-50 no hysterectomy [...] CHAVEZ LPN - 09/03/2016 11:42 CDT Source: [facility] General SpecificCHART Document Id: [id number] CDT!44 documented in this encounter Plan of [...]
--- OUTSIDE RECORDS SUMMARY | 2022-03-31 07:57 | XMS_ITS | Encounter Summary ---
:1950 Author Organization [facility] Address [address] [place] [address] Care Team Providers Name Role Phone Nato Dougherty APRN, C.N.P. Primary Care Provider [phone] Encounter Details Date Type Department Care Team Description 12/22/2016 Hospital Encounter HX FBCV FAMILYPRA Nato Dougherty APRN, C.N.P. [address] [place], [place] [phone] (Wo rk) Social History [...] How often do you attend hinduism or adventism services? 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 lancets [facility] Dispense item 0 08/23/2014 9 covered by [...] Was seen by pain management yesterday in [place]. They suggested being seen for elevated blood [...] elevated at his chronic pain appointment in [place] yesterday. He is currently on metoprolol ER 200 mg daily lisinopril-hydrochlorothiazide 20- 12.5 mgdaily and amlodipine 2.5 mg daily. Depression stable on Cymbalta 30 mg twice daily. He follows in the pain clinic as an [place] for lumbar stenosis with chronic back pain. 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 Get a flu shot next month. Recheck A1c in 6 months. Ordered: OV Est Pt Level 4 - 14941 - 25 min Dysfunction Erectile (ED) NOS Worsening, checking testosterone level. I will contact him with results. 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 Increase amlodipine to 5 mg daily. Come in for blood pressure recheck in 5 days. He was given prescription for new blood pressure monitor. Low-salt diet. Ordered: OV Est Pt Level 4 - 34099 - 25 min Jail Use Of Insulin Active Stable, no change in insulin dosages. Ordered: OV Est Pt Level 4 - 49934 - 25 min Nutritional Disorder Screening Exam Ordered: 25-Hydroxyvitamin D2 and D3-[place] 25HDN OV Est Pt Level 4 - 52175 - 25 min Pain Low Back (LBP) Chronic Stable, continue to follow with the Pain Clinic in [place]. Ordered: OV Est Pt Level 4 - 67279 - 25 min Orders: amLODIPine, 5 mg = 1 tab(s), PO, Daily, # 90 tab(s), 3 Refill(s), Maintenance, Pharmacy: [facility], [place], [place], New dose, does not need refill today. rOPINIRole, 2 mg = 1 tab(s), PO, 2xDay, with food, # 90 tab(s), 2 Refill(s), Maintenance, Pharmacy:[facility], [place] Hemoglobin A1c Return Visit [facility] 30 Min Vital Signs - Nurse Visit Electronically Signed By: NATO DOUGHERTY APRN, CNP On: 12/22/2016 10:23 AM Source: [facility] POWERzerobound Document Id: [id number] documented in this encounter Nursing Notes Nato [...] or tender areas of the foot ?? 8329-2166 [place] [address]. All rights reserved. This information is not intended as a substitute for professional medical care. Always follow your healthcare professional's instructions. Source: [facility] POWERCHART Document Id: [id number] documented in this encounter Miscellaneous Notes Miscellaneous - Nato Dougherty APRN, C.N.P. - 12/28/2016 7:17 PM CDT From: NATO DOUGHERTY APRN ORIENTATION & MOBILITY SPECIALIST To: ONESIMO WALTON Sent: 12/28/2016 19:17:20 CDT Vitamin D level and testosterone levels are in the normal range. Results: Date Result Name Value Ref Range 12/22/2016 10:32 Testoster Free-[place] 4.32 ng/dL (3.67-13.9 - ) 12/22/2016 10:32 Testoster Tot-[place] 393 ng/dL (240-950 - ) 12/22/2016 10:32 25-Hydroxy D-[place] 45 ng/mL 12/22/2016 10:32 25-Hydroxy D2-[place] <4.0 ng/mL 12/22/2016 10:32 25-Hydroxy D3-[place] 45 ng/mL Source: [employer] Document Id: [id number] Miscellaneous - Kirill Singh, L.P.N. - 12/22/2016 [...] SINGH LPN - 12/22/2016 10:26 CDT [facility]: [facility] Document Id: [id number] CDT!13 Miscellaneous - Nato Dougherty APRN, C.N.P. - 12/22/2016 10:01 AM CDT Ambulatory Patient Summary [facility] [address] [place], [place] [id number] Visit Information Name: ONESIMO WALTON [facility] Number: [id number] Current Date: 12/22/2016 10:01:52 Physicians [...] day This is a CHANGE Routed to [address] [address] aspirin (aspirin 325 mg oral tablet) 1 [...] 12 hours NarcoticContract with [facility] [place] 06/28/16 (scanned) rOPINIRole (rOPINIRole 2 mg oral [...] 1-4 Active Abuse Tobacco Smoking NOS Active Jail Use Of Insulin Active Active Your Upcoming [...] or tender areas of the foot ?? 9704-1760 [facility], [address] [place] [address]. All rights reserved. This information is not [...] if you dont have one. Go to [email or web address] and click on Create Your Account. Then, follow the directions to complete the online form. Kumar be asked for your [facility] number which you can find at the top of this document. Your Goals/Additional instructions: Source: [facility] POWERCHART Document Id: [id number] Miscellaneous - Nato Dougherty APRN, C.N.P. - 12/22/2016 10:01 AM CDT Ambulatory Discharge Medication List [address] [id number] Visit Information Name: YOHANA ONESIMO RICHARD [facility] Number: [id number] Current Date: 12/22/2016 10:01:51 Attending Provider: NATO DOUGHERTY APRN, CNP Primary Care Provider: NATO DOUGHERTY APRN [facility] ONESIMO WALTON RICHARD has been given the [...] day This is a CHANGE Routed to [address] [address] aspirin (aspirin 325 mg oral tablet) 1 [...] 12 hours NarcoticContract with [facility] [place] 06/28/16 (scanned) rOPINIRole (rOPINIRole 2 mg oral [...] emergency. Electronically Signed By: NATO DOUGHERTY APRN ORIENTATION & MOBILITY SPECIALIST Signed On:22-DEC-2016 10:01:33 Additional Information: Source: [facility] POWERCHART Document Id: [id number] Miscellaneous - Kirill Singh L.P.N. - 12/22/2016 [...] SINGH LPN - 12/22/2016 9:41 CDT Source: [facility] POWERCHART Document Id: [id number] CDT!8 Miscellaneous - Kirill Singh L.P.N. - 12/22/2016 9:38 AM CDT Adult Junior Bookkeeper Intake/History Adult Junior Bookkeeper Intake/History Entered On: 12/22/2016 9:41 CDT Performed On: 12/22/2016 9:38 CDT by KIRILL SINGH LPN Intake Chief Complaint : Diabetic check. Did labs yesterday. Was seen by pain management yesterday in [place]. They suggested being seen for elevated blood [...] 12/22/2016 9:38 CDT General Info Languages : Faroese Is Patient Female and 13-50 no hysterectomy [...] SINGH LPN - 12/22/2016 9:38 CDT Source: [facility] POWERCHART Document Id: [id number] CDT!34 documented in this encounter Plan of Treatment Not on filedocumented as of this encounter Visit Diagnoses Not on filedocumented in this encounter Additional Health Concerns Assessment Noted Time PHQ-9 Depression Total Score: 6 12/22/2016 10:26 AM CD T documented as of this encounter Care Teams Enamel Burner Relationship Specialty Start Date End Date Nato Dougherty, JULIÁN, C.N.P. PCP - General 10/28/16 04/05/17 [address], [place] [address] documented as of this encounter
--- OUTSIDE RECORDS SUMMARY | 2022-03-31 07:57 | XMS_ITS | Encounter Summary ---
:1950 Author Organization [facility] Address [address] [place] [address] Care Team Providers Name Role Phone Irma Zacarias APRN, C.N.P. Primary Care Provider Encounter Details Date Type Department Care Team Description 02/28/2017 Hospital Encounter HX RST VASC WOUND CARE Karil Valdovinos, NEGIN GALLEGO C.N.P., R.N. Social History [...] How often do you attend restorationist or sabianist services? 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 lancets [facility] Dispense item 0 08/23/2014 9 covered by [...] documented as of this encounter Care Teams Plumbing Designer Relationship Specialty Start Date End Date Irma Zacarias APRN, C.N.P. PCP - General 10/28/16 04/05/[address] [phone] documented as of this encounter
--- OUTSIDE RECORDS SUMMARY | 2022-03-31 07:57 | XMS_ITS | Encounter Summary ---
:[address] [facility] Address [address] [place] [address] Care Team Providers Name Role Phone Irma Zacarias APRN C.N.P. Primary Care Provider [phone] Encounter Details Date Type Department Care Team [...] How often do you attend alevism or mu-ism services? 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 PCP - General 10/28/16 04/05/17 [address], [place] [phone] documented as of this encounter
--- OUTSIDE RECORDS SUMMARY | 2022-03-31 07:57 | XMS_ITS | Encounter Summary ---
:1950 Author Organization [facility] Address [address] [place] [address] Care Team Providers Name Role Phone Irma Zacarias APRN C.N.P. Primary Care Provider [phone] Encounter Details Date Type Department Care Team [...] How often do you attend islam or worship services? 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 PCP - General 10/28/16 04/05/17 [address] [phone] documented as of this encounter
--- OUTSIDE RECORDS SUMMARY | 2022-03-31 07:57 | XMS_ITS | Encounter Summary ---
:1950 Author Organization [facility] Address [address] [place] [address] Care Team Providers Name Role Phone Nato Dougherty APRN C.N.P. Primary Care Provider [phone] Encounter Details Date Type Department Care Team Description 02/10/2017 Hospital Encounter HX FBCV FAMILYPRA Cheri Santo M.D. [address] [place] [phone] (Wo rk) Social History Tobacco Use [...] How often do you attend gnosticist or sikh services? 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 - 02/10/2017 10:26 AM CDT [id number] CHIEF COMPLAINT/ REASON FOR VISIT Discuss leg [...] receiving treatment from [facility] in [place]. The provider he sees [facility] has been treating his [...] HISTORY [place]. FAMILY HISTORY Mother at 91 of old [...] arterial disease. [facility] obtain [facility]. Avulsed toenail with probable underlying infection with evidence of early osteomyelitis on x-ray.X-ray results were reviewed. Prescriptions were sent to his pharmacy for Cipro 750 mg twice daily for 10 days and Clindamycin 300 mg every 6 hours for 10 days. Culture results are pending. Will refer to [facility] for further evaluation. [...] behalf by Marie Peterson, a trained medical billing assistant. The creation of this record is based on the scribe's personal observations and the provider's statements to them. This document has been parul cked and approved by the attending provider. Cheri Quiros M.D./puja Electronically Signed By: CHERI VELAZQUEZ MD On: 02/11/2017 05:17 PM Source: [facility] MHSDOLBEYNONRADSYS Document Id: [id number] documented in this encounter Nursing Notes Quyen Umaña L.P.N. - 02/10/2017 4:29 PM CDT MIMI notified Onesimo of MIMI appt in [facility] on 02/14 at [address] César Carrasco on 02/16 at 7:45 [facility] 4 floor desk 4 [facility]; [phone] Electronically Signed By: QUYEN UMAÑA LPN On: 02/10/2017 04:42 PM Source: [facility] POWERCHART Document Id: [id number] documented in this encounter Miscellaneous Notes Miscellaneous [...] Refills: 3 Substitutions Allowed Route To Pharmacy [facility] [place] Signed by NATO DOUGHERTY APRN, CNP 03/07/2017 11:12:42 From: VEE LOVING ([facility] Boiler Mechanic) To: NATO DOUGHERTY APRN, CNP; Sent: 03/07/2017 10:53:22 CDT Subject: Med Management On hold pending signature Order:lisinopril-hydroCHLOROthiazide (lisinopril-hydroCHLOROthiazide 20mg-12.5mg oral tablet) 1 tab(s) PO Daily Qty: 90 tab(s) Refills: 3 Substit[facility] [place] Documented Discontinue:lisinopril-hydroCHLOROthiazide (lisinopril-hydroCHLOROthiazide 20mg- 12.5mg oral tablet) Signed by VEE LOVING 03/07/2017 10:52:46 Source: [facility] gDecide Document Id: [id number] Miscellaneous - Conversion, Historical Provider Ser - 03/02/2017 10:31 AM CDT Med Management Document Contains Addenda Addendum by NATO DOUGHERTY APRN, CNP on March 02, 2017 11:36:53 CDT From: NATO DOUGHERTY APRN, CNP Sent: 03/02/2017 11:36:53 CDT Subject: RE:Med Management Approved Order:insulin lispro (HumaLOG KwikPen 100 units/mL subcutaneous solution) 5-10 units Subcut. 3xDayAC Qty: 15 mL Refills: 2 Substitutions Allowed Route To Pharmacy [place], [place] Signed by NATO DOUGHERTY APRN, CNP 03/02/2017 11:36:49 From: LAITH TRONCOSO ([facility] Boiler Mechanic) To: NATO DOUGHERTY APRN, CNP; Sent: 03/02/2017 10:31:35 CDT Subject: Med Management On hold pending signature Order:insulin lispro (HumaLOG KwikPen 100 units/mL subcutaneous solution) 5-10 units Subcut. 3xDayAC Qty: 15 mL Refills: 2 Substitutions Allowed Route To [place], [place] Source: [employer] Document Id: [id number] Miscellaneous - Arnaud Yin - 02/28/2017 1:12 PM CDT Med Management Document Contains Addenda Addendum by NATO DOUGHERTY APRN, CNP on February 28, 2017 14:38:19 CDT From: NATO DOUGHERTY APRN, CNP Sent: 02/28/2017 14:38:19 CDT Subject: RE:Med Management Approved Order:insulin glargine (Lantus 100 units/mL subcutaneous solution) 0.3 mL Subcut. Bedtime Qty: 9 mL Refills: 3 Substitutions Allowed Route To [facility] [place] Signed by NATO DOUGHERTY APRN, CNP 02/28/2017 14:38:14 From: ARNAUD YIN ([facility] Boiler Mechanic) To: NATO DOUGHERTY APRN, CNP; Sent: 02/28/2017 13:12:56 CDT Subject: Med Management On hold pending signature Order:insulin glargine (Lantus 100 units/mL subcutaneous solution) 0.3 mL Subcut. Bedtime Qty: 9 mL Refills: 3 Substitutions Allowed Route To [facility] [place] Documented Discontinue:insulin glargine (Lantus 100 units/ml subcutaneous solution) Signed by ARNAUD YIN 02/28/2017 13:11:27 Source: [employer] Document Id: [id number] Miscellaneous - Cheri Catalan M.D. - 02/10/2017 12:32 PM CDT Addendum by QUYEN UMAÑA LPN on February 10, 2017 15:59:15 CDT done From: HCERI VELAZQUEZ MD To: FINESSE Lacy Nurse; Sent: 02/10/2017 12:32:48 CDT Please arrange for MIMI bilateral at D1 Source: [employer] Document Id: [id number] Miscellaneous - Quyen Umaña L.P.N. - 02/10/2017 11:04 AM CDT Adult Bi Report Developer Intake/History Adult Bi Report Developer Intake/History Entered On: 02/10/2017 11:07 CDT Performed On: 02/10/2017 11:04 CDT by QUYEN UMAÑA LPN Intake Chief Complaint : f/u from Pain consult in [place] Temperature Core : 36.3 DegC(Converted to: 97.3 [...] Information Given By : Patient Languages : Vietnamese Is Patient Female and 13-50 no hysterectomy [...] UMAÑA LPN - 02/10/2017 11:04 CDT [facility] POWERCHART Document Id: [id number] CDT!40 documented in this encounter Plan of [...] documented as of this encounter Care Teams Information Broker Relationship Specialty Start Date End Date Nato Dougherty, JULIÁN, C.N.P. PCP - General 10/28/16 04/05/[address] [address] documented as of this encounter
--- OUTSIDE RECORDS SUMMARY | 2022-03-31 07:57 | XMS_ITS | Encounter Summary ---
:1950 Author Organization [facility] Address [address] [place] [address] Care Team Providers Name Role Phone Irma Zacarias APRN C.N.P. Primary Care Provider [phone] Encounter Details Date Type Department Care Team Description 03/04/2017 Hospital Encounter HX RST THEO Shawn Concepcion M.D. [address] [place], [place] [phone] (Wo rk) Social History [...] How often do you attend zoroastrian or adventism services? 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 as of this encounter Last [...] Signature Glucose, POCT, 126 70 - 140 [facility] B MG/DL LABORATORIES - [facility] Specimen Anatomical Collection Method Collection Time Receive d Time (Source) Location / / Volume Laterality 03/04/2017 2:05 PM 7 2:05 CDT PM CDT Historical Provider LAB POCT ORDERABLES-MANUAL Performing Organization Address City/State/ZIP Code Phon e Number [facility] LABORATORIES - [address] [place], [place] [address] [facility] V&IRAD Vascular & Intervention (03/04/2017 1:39 [...] stenosis was balloon dilated with a 5mm FINISHING POWDER PRESS OPERATOR balloon. Direct fluoroscopic guidance was then used [...] ?? [phone] 04-Mar-2017 17:35 ?Arely Atkins MD [phone] 04-Mar-2017 17:35 Narrative 03/04/2017 5:35 PM CDT 04-Mar-2017 13:39:00 ??Exam: V&IRAD Vascular & Intervention Indications: PELVIC ARTERIOGRAM WITH FINISHING POWDER PRESS OPERATOR /STENTING OF ILIAC ARTERYS;PAD, claudication ORIGINAL REPORT - 04-Mar-2017 17:35:00 V&IRAD Vascular & Intervention: Procedure Note Ottoniel Concepcion M.D. - 08/10/2017Fo rmatting of this note might be different from the original. 04-Mar-2017 13:39:00 Exam: V&IRAD Vascul ar & Intervention Indications: PELVIC ARTERIOGRAM WITH FINISHING POWDER PRESS OPERATOR /STENTING OF ILIAC ARTERYS;PAD, claudication ORIGINAL REPORT [...] stenosis was balloon dilated with a 5mm FINISHING POWDER PRESS OPERATOR balloon. Direct fluoroscopic guidance was then used [...] minutes. Electronically signed by: Bj Concepcion MD [phone] 04-Mar-2017 17 :35 Arely Atkins MD [phone] 04-Mar-2017 17:35 Dino Lindsey M.D. IMG IR PROCEDURES (ABNORMAL) Glucose, POCT (03/04/2017 9:07 AM CDT) [facility] Method Time Signature Last Intake NPO [facility] LABORATORIES [facility] Glucose, 169 (H) 70 - 140 [facility] POCT, B MG/DL LABORATORIES - [facility] Sample Site, Capillary [facility] Blood Gas, LABORATORIES - POCT [facility] Specimen Anatomical Collection Method Collection Time Receive d Time (Source) Location / / Volume Laterality 03/04/2017 9:07 AM 7 9:07 CDT AM CDT Historical Provider LAB POCT ORDERABLES-MANUAL Performing Organization Address City/[facility]/ZIP Code Phon e Number [facility] LABORATORIES - [address] [place], [place] [address] [facility] ECG 12 Lead (03/04/2017 7:18 AM CDT) Specimen (Source) Anatomical Collection Method Collection Time Re ceived Time Location / / Volume Laterality 03/04/2017 7:18 AM CDT Narrative HISTORICAL [facility] IMAGING CONVERSION - 7:23 AM CDT 04Mar2017 07:18 VENTRICULAR RATE 64 Normal sinus rhythm Right bundle branch block No previous ECGs available [id number]^BECKY BONILLA^CNADY Procedure Note Candy Araujo M.D. - 08/04/2017Form atting of this note might be different from the original. 04Mar2017 07:18 VENTRICULAR RATE 64 Normal sinus rhythm Right bundle branch block No previous ECGs available [id number]^BECKY BONILLA^CANDY Ottoniel Concepcion M.D. ECG ORDERABLES Performing Organization Address City/[facility]/ZIP Code Phon e Number HX MIGUE CONVERSION HISTORICAL [facility] IMAGING CONVERSION (ABNORMAL) Glucose, POCT (03/04/2017 7:08 AM CDT) [facility] gist Method Time Signature Glucose, 214 (H) 70 - 140 [facility] POCT, B MG/DL LABORATORIES - [facility] Sample Site, Capillary [facility] Blood Gas, LABORATORIES - POCT [facility] Last Intake NPO [facility] LABORATORIES - [facility] Specimen Anatomical Collection Method Collection Time Receive d Time (Source) Location / / Volume Laterality 03/04/2017 7:08 AM 7 7:08 CDT AM CDT Historical Provider LAB POCT ORDERABLES-MANUAL Performing Organization Address City/[facility]/ZIP Code Phon e Number [facility] LABORATORIES - [address] [place], [place] [address] [facility] documented in this encounter Visit Diagnoses Not on filedocumented in this encounter Additional Health Concerns Assessment Noted Time PHQ-9 Depression Total Score: 6 12/22/2016 10:26 AM CD T documented as of this encounter Care Teams Laundry Or Dry Cleaners Counter Clerk Relationship Specialty Start Date End Date Irma Zacarias, JULIÁN, C.N.P. PCP - General 10/28/16 04/05/17 [address] [place] [address] documented as of this encounter
--- OUTSIDE RECORDS SUMMARY | 2022-03-31 07:57 | XMS_ITS | Encounter Summary ---
:1950 Author Organization [facility] Address [address] [place] [address] Care Team Providers Name Role Phone Irma Zacarias APRN C.N.P. Primary Care Provider [phone] Encounter Details Date Type Department Care Team [...] How often do you attend zoroastrian or sikhism services? 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 lancets [facility] Dispense item 0 08/23/2014 9 covered by [...] documented as of this encounter Care Teams Vascular Sonographer Relationship Specialty Start Date End Date Irma Zacarias, JULIÁN, C.N.P. PCP - General 10/28/16 04/05/[address] [place] [address] documented as of this encounter
--- OUTSIDE RECORDS SUMMARY | 2022-03-31 07:57 | XMS_ITS | Encounter Summary ---
:[address] [facility] Address [address] [place] [address] Care Team Providers Name Role Phone Irma Zacarias APRN C.N.P. Primary Care Provider [phone] Encounter Details Date Type Department Care Team Description 02/10/2017 Hospital Encounter HX NO MAPPING Renee Catalan M.D. [address] [place], [place] [phone] (Wo rk) Social History [...] How often do you attend orthodoxy or shinto services? 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 lancets [facility] Dispense item 0 [...] Coding Summary-Paper Based CODING DATE: 02/23/2017 FINAL [facility] STATUS: * Discharged to Home or Self [...] VENTURA Date Saved: 02/23/2017 01:51 pm Source: [facility]ED [facility] Document Id: [id number] documented in this encounter Plan of Treatment Not on filedocumented as of this encounter Visit Diagnoses Not on filedocumented in this encounter Additional Health Concerns Assessment Noted Time PHQ-9 Depression Total Score: 6 12/22/2016 10:26 AM CD T documented as of this encounter Care Teams Cathead Worker Relationship Specialty Start Date End Date Irma Zacarias, MECHANICAL STRIPER, C.N.P. PCP - General 10/28/16 04/05/17 [address] [place] [address] documented as of this encounter
--- OUTSIDE RECORDS SUMMARY | 2022-03-31 07:57 | XMS_ITS | Encounter Summary ---
:1950 Author Organization [facility] Address [address] [place] [address] Care Team Providers Name Role Phone Irma Zacarias APRN C.N.P. Primary Care Provider [phone] Encounter Details Date Type Department Care Team [...] How often do you attend mormon or congregation services? 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 PCP - General 10/28/16 04/05/[address], [place] [phone] documented as of this encounter
--- OUTSIDE RECORDS SUMMARY | 2022-03-31 07:57 | XMS_ITS | Encounter Summary ---
:1950 Author Organization [facility] Address [address] [place] [address] Care Team Providers Name Role Phone Unavailable Primary Care Provider Unavailable Encounter Details Date Type Department Care Team Description 09/23/2016 Hospital Encounter HX FBCV FAMILYPRA Nato Dougherty, MECHATRONICS ENGINEER, C.N.P. [address] [place], [place] [phone] (Wo rk) Social History [...] How often do you attend bahai or quaker services? 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 lancets 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 Diabetes education done today , please see nurse educator intake form in the EHR. 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 Ordered: OV Est Pt Level 4 - 90392 - 25 min Hypertriglyceridemia Stable on atorvastatin without adverse effects. Ordered: OV Est Pt Level 4 - 65117 - 25 min Senior Living Use Of Insulin Active Take Humalog insulin before meals. Ordered: OV Est Pt Level 4 - 87935 - 25 min Electronically Signed By: NATO DOUGHERTY APRN, CNP On: 09/23/2016 11:23 AM Source: [facility] POWERCHART Document Id: [id number] documented in this encounter Nursing Notes Nato Dougherty APRN, C.N.P. - 09/23/2016 11:23 AM CDT Core Manager Intake (Adult) Core Manager Intake (Adult) Entered On: 09/23/2016 11:24 CDT [...] Patient : 15 Minutes NATO DOUGHERTY APRN [facility] - 09/23/2016 11:23 CDT Education Diabetes Education Grid Topics : Medications/Effectiveness - Insulin Administration, Medications/Effectiveness - Insulin Dose Adjustment, Problem Solving/Goal Setting - Treatment/Management Goals Individuals Taught : Patient Barriers to Learning : None evident Teaching Method : Explanation, Printed materials Teaching Evaluation : Verbalizes understanding NATO DOUGHERTY APRN [facility] - 09/23/2016 11:23 CDT Comprehensive Program Goals Diabetes Education Goals Grid Diabetes Education Goal #1 row Diabetes Education Goal #2 row Diabetes Education Goal #3 row Date Goal Set : 09/23/2016 CDT 09/23/2016 CDT 09/23/2016 CDT Goal : A1c less than 7-8 Annual eye exam Blood pressure less than 140/90 Related Content Area : Healthy eating Reducing risks Medication NATO DOUGHERTY APRN [facility] - 09/23/2016 11:23 CDT NATO DOUGHERTY APRN [facility] - 09/23/2016 11:23 CDT NATO DOUGHERTY APRN [facility] - 09/23/2016 11:23 CDT Source: [facility] Document Id: [id number] CDT!36 Nato Dougherty APRN, C.N.P. - 09/23/2016 [...] that are unsaturated. ?? Talk to your waste picker about safe sugar substitutes. ?? Avoid added [...] of Nutrition and Dietetics www.eatright.org ?? The [employer] 967-223-8973 www.diabetes.org ?? [facility], [address] [place] [address], [place] [address]. All rights reserved. This information is not intended as a substitute for professional medical care. Always follow your healthcare professional's instructions. This document has images extracted. Please consider using [employer] for all your patient education needs. Source: [facility] POWERCHART Document Id: [id number] documented in this encounter Miscellaneous Notes Miscellaneous - Sapphire Latif - 10/01/2016 9:21 AM CDT A message from your Primary Care Provider and your Care Team From: SAPPHIRE LATIF LPN To: ONESIMO WALTON RICHARD Sent: 10/01/2016 09:21:13 CDT Subject: A message from your Primary Care Provider and your Care Team Onesimo Anton [facility] Number: [phone] [id number] [place] [address] : 1950 Mr. Walton, We have developed [...] visit with us more convenient. Please call [phone] to schedule services that are past due or that may shortly become due (thank you if you have already done so). We will follow up in three to six months should you have more services to schedule at that time. If you have already received any of the listed past due or upcoming services outside of [facility], please call [phone] to add them to your medical record. You may want to consider contacting your health insurance company to make sure these services are covered and find out if there will be any [id number] expense. If you have any questions about the services listed above, or if you are no longer receiving care from [facility], please contact us at [phone]. Thank you for partnering to provide you with the best care possible. Thank you for choosing us, Nato Dougherty APRN, C.N.PFei and the [facility], for your health care needs! Source: [facility] POWERCHART Document Id: [id number] Electronically signed by Rajesh [facility] [place] [id number] at 10/26/2016 4:58 AM CDT Misestefani - Nato Dougherty APRN, C.N.P. - 09/23/2016 11:24 AM CDT Quality Measures Quality Measures Entered On: 09/23/2016 11:24 CDT Performed On: 09/23/2016 11:24 CDT by NATO DOUGHERTY APRN, CNP Diabetes Date of Last Diabetes Education : 09/23/2016 CDT NATO DOUGHERTY APRN, CNP - 09/23/2016 11:24 CDT Source: [facility] Document Id: [id number] CDT!3 Miscellaneous - Winter Singh L.P.N. - [...] SINGH LPN - 09/23/2016 11:23 CDT Source: [facility] POWERCHART Document Id: [id number] CDT!13 Miscellaneous - Nato Dougherty APRN, C.N.P. - 09/23/2016 11:12 AM CDT Ambulatory Patient Summary [address] [id number] Visit Information Name: ONESIMO WALTON [facility] Number: [id number] Current Date: 09/23/2016 11:12:36 Physicians Attending Provider: NATO DOUGHERTY APRN MEMBERSHIP DIRECTOR Primary Care Provider: NATO DOUGHERTY APRN [facility] ONESIMO WALTON RICHARD has been given [...] 12 hours NarcoticContract with [facility] 06/28/16 (scanned) rOPINIRole (rOPINIRole 2 mg oral [...] that are unsaturated. ?? Talk to your waste picker about safe sugar substitutes. ?? Avoid added [...] of Nutrition and Dietetics www.eatright.org ?? The [employer] 051-795-6468 www.diabetes.org ?? [facility], [address] [place] [address], [place] [address]. All rights reserved. This information is not [...] if you dont have one. Go to [email or web address] and click on Create Your Account. Then, follow the directions to complete the online form. Youll be asked for your [facility] number which you can find at the top of this document. Your Goals/Additional instructions: This document has images extracted. Please consider using [employer] for all your patient education needs. Source: [facility] POWERCHART Document Id: [id number] Miscellaneous - Nato Dougherty APRN, C.N.P. - 09/23/2016 11:12 AM CDT Ambulatory Discharge Medication List [address] [id number] Visit Information Name: ONESIMO WALTON [facility] Number: [id number] Current Date: 09/23/2016 11:12:35 Attending Provider: NATO DOUGHERTY APRN MEMBERSHIP DIRECTOR Primary Care Provider: NATO DOUGHERTY APRN MEMBERSHIP DIRECTOR ONESIMO WALTON has been given the [...] 12 hours NarcoticContract with [facility] 06/28/16 (scanned) rOPINIRole (rOPINIRole 2 mg oral [...] CNP Signed On:23-SEP-2016 11:12:21 Additional Information: Source: [facility] POWERCHART Document Id: [id number] Miscellaneous - Winter Singh L.P.N. - 09/23/2016 10:58 AM CDT Adult Core Manager Intake/History Adult Core Manager Intake/History Entered On: 09/23/2016 11:00 CDT Performed [...] Preferred Communication Mode : Verbal Languages : Japanese Is Patient Female and 13-50 no hysterectomy [...] SINGH LPN - 09/23/2016 10:58 CDT Source: [facility] [employer] Print[employer] Document Id: [id number] CDT!50 documented in this encounter Plan of Treatment Not on filedocumented as of this encounter Visit Diagnoses Not on filedocumented in this encounter Additional Health Concerns Assessment Noted Time PHQ-9 Depression Total Score: 7 09/23/2016 11:23 AM CD T documented as of this encounter
--- OUTSIDE RECORDS SUMMARY | 2022-03-31 07:57 | XMS_ITS | Encounter Summary ---
:1950 Author Organization [facility] Address [address] [place] [address] Care Team Providers Name Role Phone Nato Dougherty APRN, C.N.P. Primary Care Provider [phone] Encounter Details Date Type Department Care Team Description 01/07/2017 Hospital Encounter HX FBCV FAMILYPRA Nato Dougherty APRN, C.N.P. [address] [place], [place] [phone] (Wo rk) Social History [...] How often do you attend advent or sikh services? 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 lancets [facility] Dispense item 0 08/23/2014 9 covered by [...] MITALI MÉNDEZ CMA To: NATO DOUGHERTY APRN [facility]; Sent: 01/07/2017 10:10:06 CDT Subject: *General Message Patient was in for B/P check today. Taking medications as recommended. B/P 155/69 Pulse 68 Five minutes later. B/P 147/72 Pulse 69 Source: [facility] POWERCHART Document Id: [id number] Miscellaneous - Mitali Méndez C.MFeiA. - 01/07/2017 [...] MÉNDEZ CMA - 01/07/2017 10:03 CDT Source: [employer] Document Id: [id number] CDT!9 Miscellaneous - Mitali Méndez C.MJyoti - 01/07/2017 10:03 AM CDT Ambulatory Vitals Height Weight Ambulatory Vitals Height Weight Entered On: 01/07/2017 10:08 CDT Performed On: 01/07/2017 10:03 CDT by MITALI MÉNDEZ [facility] Vitals/Ht/Wt Peripheral Pulse Rate : 69 /min Systolic Blood Pressure : 147 mmHg (HI) Diastolic Blood Pressure : 72 mmHg NIBP Mean : 97 mmHg BP Location : Left upper extremity Blood Pressure Cuff Size : Regular Height : 173 cm(Converted to: 5 ft 8 inch(es), 68 inch(es)) MITALI MÉNDEZ [facility] - 01/07/2017 10:03 CDT Source: [employer] Document Id: [id number] CDT!9 documented in this encounter Plan of Treatment Not on filedocumented as of this encounter Visit Diagnoses Not on filedocumented in this encounter Additional Health Concerns Assessment Noted Time PHQ-9 Depression Total Score: 6 12/22/2016 10:26 AM CD T documented as of this encounter Care Teams Staple Fiber Washer Relationship Specialty Start Date End Date Nato Dougherty, JULIÁN, C.N.P. PCP - General 10/28/16 04/05/17 [address], [place] [address] documented as of this encounter
--- OUTSIDE RECORDS SUMMARY | 2022-03-31 07:57 | XMS_ITS | Encounter Summary ---
:1950 Author Organization [facility] Address [address] [place] [address] Care Team Providers Name Role Phone Nato Dougherty APRN, C.N.P. Primary Care Provider [phone] Encounter Details Date Type Department Care Team Description 12/21/2016 Hospital Encounter HX [facility] LAB Nato Dougherty, Shawn GODOY, C.N.P. [address] [place] [phone] (Wo rk) Social History Tobacco Use [...] How often do you attend gnosticist or jehovah's witness services? Never 03/25/2021 Do [...] at Date Recorded Male 03/24/2021 8:13 PM REGISTERED PHYSICAL THERAPIST documented as of this encounter Medications at [...] times injection a day [facility] meals. [facility] Disp[facility] item 0 08/23/2014 9 covered by [...] 1:45 PM CDT From: NATO DOUGHERTY APRN SYSTEMS INTEGRATION ENGINEER To: ONESIMO WALTON Sent: 12/21/2016 13:45:48 CDT A1c is stable, recheck in 6 months. Results: Date Result Name Ind Value Ref Range 12/21/2016 09:20 Hgb A1c (H) 7.4 % A1C ( - <=5.6) Source: [facility] Document Id: [id number] documented in this encounter Plan of Treatment Not on filedocumented as of this encounter Visit Diagnoses Not on filedocumented in this encounter Additional Health Concerns Assessment Noted Time PHQ-9 Depression Total Score: 7 09/23/2016 11:23 AM CD T documented as of this encounter Care Teams Otr Company Driver Relationship Specialty Start Date End Date Nato Dougherty APRN, C.N.P. PCP - General 10/28/16 04/05/17 [address] [address] documented as of this encounter
--- OUTSIDE RECORDS SUMMARY | 2022-03-31 07:57 | XMS_ITS | Encounter Summary ---
:1950 Author Organization [facility] Address [address] [place] [address] Care Team Providers Name Role Phone Irma Zacarias APRN C.N.P. Primary Care Provider [phone] Encounter Details Date Type Department Care Team Description 02/17/2017 Hospital Encounter HX [facility] ULTRASOUND Renee Arguello M.D. [address] [place] [address] (Wo rk) Social History Tobacco [...] How often do you attend sikhism or christian services? 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 PCP - General 10/28/16 04/05/17 [address], [place] [address] documented as of this encounter
--- OUTSIDE RECORDS SUMMARY | 2022-03-31 07:57 | XMS_ITS | Encounter Summary ---
:1950 Author Organization [facility] Address [address] [place] [address] Care Team Providers Name Role Phone Unavailable Primary Care Provider Unavailable Encounter Details Date Type Department Care Team Description 09/20/2016 Hospital Encounter [facility]X [facility] Nato Dougherty, Shawn PRYesika, C.N.P. [address] [place], [place] [phone] (Wo rk) Social History [...] How often do you attend rastafari or caodaism services? 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 Results: Date Result Name Ind Value Ref Range 09/20/2016 08:38 Hgb A1c (H) 8.1 % A1C ( - <=5.6) Source: [employer] Document Id: [id number] Miscellaneous - Nato Dougherty APRN, C.N.P. - 09/20/2016 1:06 PM CDT From: NATO DOUGHERTY APRN PULLING UNIT FLOORHAND To: ONESIMO WALTON Sent: 09/20/2016 13:06:22 CDT [...] Ratio 4.00 09/20/2016 08:38 LDL/HDL 2 Source: [employer] Document Id: [id number] Electronically signed by Conversion, [facility] Tilt Tray Driver [id number] at 10/26/2016 4:58 AM CDT documented in [...] for FH and FDB is available throu [facility]: FH/ADH Genetic Reflex [place] (test ADHP). Acquired (non-genetic) causes of markedly increased LDL cholesterol include cholestatic liver disease due to the presence of LpX. If a genetic form of hypercholesterolemia is suspected, family studies including biochemical testing fo r lipids (total cholesterol,triglycerides, LDL cholesterol and HDL cholesterol) are recommended. ??Please contact the laboratory at or the on-line test catalog at [employer] for information about how to order these [...]
--- OUTSIDE RECORDS SUMMARY | 2022-03-31 07:58 | XMS_ITS | Encounter Summary ---
:1950 Author Organization [facility] Address [address] [place] [address] Care Team Providers Name Role Phone Unavailable Primary Care Provider Unavailable Encounter Details Date Type Department Care Team Description 07/31/2009 Hospital Encounter HX [facility] FAMILYPR[facility] Tee Dhillon M.D. [address] [place] [address] (Wo rk) Social History Tobacco [...] How often do you attend rastafari or mosque services? 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
--- OUTSIDE RECORDS SUMMARY | 2022-03-31 07:58 | XMS_ITS | Encounter Summary ---
:1950 Author Organization [facility] Address [address] [place] [address] Care Team Providers Name Role Phone Unavailable Primary Care Provider Unavailable Encounter Details Date Type Department Care Team Description 06/29/2016 Hospital Encounter HX [facility] FAMILYPRA Nato Dougherty, ADMINISTRATION PROFESSIONAL, C.N.P. [address] [place], [place] [phone] (Wo rk) Social History [...] How often do you attend samaritan or christian services? 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 Addendum by NATO DOUGHERTY APRN, CNP on June 29, 2016 10:04:53 NURSE EDUCATOR From: NATO DOUGHERTY APRN BIOSTATISTICS TEACHER To: MITALI MÉNDEZ CMA; Sent: 06/29/2016 10:04:53 NURSE EDUCATOR Subject: RE: *General Message Noted, thank you. From: MITALI MÉNDEZ CMA To: NATO DOUGHERTY APRN, CNP; Sent: 06/29/2016 09:47:06 NURSE EDUCATOR Subject: *General Message Patient was in for B/P check today. Patient states' I haven't taken my medication yet today, I take it at night. B/P 156/73 Pulse 61 Five minutes later. B/P 157/71 Pulse 59 Source: [facility] Document Id: [id number] Electronically signed by Rajesh [facility] Self Defense Instructor [id number] at 10/25/2016 11:39 PM CDT Miscellaneous - Mitali Méndez, C.M.A. - 06/29/2016 9:41 AM CST Ambulatory Vitals Height Weight Ambulatory Vitals Height Weight Entered On: 06/29/2016 9:45 NURSE EDUCATOR Performed On: 06/29/2016 9:41 NURSE EDUCATOR by MITALI MÉNDEZ OPERATOR [employer] Vitals/Ht/Wt Peripheral Pulse Rate : 59 /min (LOW) Systolic Blood Pressure : 157 mmHg (HI) Diastolic Blood Pressure : 71 mmHg NIBP Mean : 100 mmHg BP Location : Left upper extremity Blood Pressure Cuff Size : Regular Height : 173 cm(Converted to: 5 ft 8 inch(es), 68 inch(es)) MITALI MÉNDEZ CMA - 06/29/2016 9:41 NURSE EDUCATOR Source: [facility] Document Id: [id number] NURSE EDUCATOR!9 E EDUCATOR Miscellaneous - Mitali Méndez, C.M.A. - 06/29/2016 9:32 AM CST Ambulatory Vitals Height Weight Ambulatory Vitals Height Weight Entered On: 06/29/2016 9:34 NURSE EDUCATOR Performed On: 06/29/2016 9:32 NURSE EDUCATOR by MITALI MÉNDEZ [facility] Vitals/Ht/Wt Peripheral Pulse Rate : 61 /min Systolic Blood Pressure : 156 mmHg (HI) Diastolic Blood Pressure : 73 mmHg NIBP Mean : 101 mmHg BP Location : Left upper extremity Blood Pressure Cuff Size : Regular Height : 173 cm(Converted to: 5 ft 8 inch(es), 68 inch(es)) MITALI MÉNDEZ [facility] - 06/29/2016 9:32 NURSE EDUCATOR Source: [employer] Document Id: [id number] NURSE EDUCATOR!9 E EDUCATOR documented in this encounter Plan of Treatment Not on filedocumented as of this encounter Visit Diagnoses Not on filedocumented in this encounter Additional Health Concerns Assessment Noted Time PHQ-9 Depression Total Score: 11 06/22/2016 10:[address] documented as of this encounter
--- OUTSIDE RECORDS SUMMARY | 2022-03-31 07:58 | XMS_ITS | Encounter Summary ---
:1950 Author Organization [facility] Address [address] [place] [address] Care Team Providers Name Role Phone Unavailable Primary Care Provider Unavailable Encounter Details Date Type Department Care Team Description 02/14/2012 Hospital Encounter HX [facility] PMTR Yosi Garces M.D. [address] [place] [address], [address] [place] [address] (Wo rk) Social History Tobacco [...] How often do you attend religious or christian services? 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 - 02/14/2012 1:23 PM CDT [id number] CHIEF COMPLAINT / REASON FOR VISIT Referring [...] Morphine. SOCIAL HISTORY The patient lives in [place]. 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 Electronically Signed By: MARIE AMBROSIO On: 02/29/2012 09:01 AM Source: [facility] [employer] Document Id: [id number] documented in this encounter Miscellaneous Notes Miscellaneous - Winter Singh L.P.N. - 06/17/2016 11:06 AM CST *Medication Refill Msg Document Contains Addenda Addendum by WINTER SINGH LPN on June 17, 2016 11:42:57 SAFETY EQUIPMENT TESTING SPECIALIST Spoke with: ( x_ ) Patient [...] language for Healthcare discussion: _ Was an financial examiner used for this call? _ Other ( --_ ) Addendum by NATO ZACARIAS APRN, CNP on June 17, 2016 11:32:58 SAFETY EQUIPMENT TESTING SPECIALIST From: NATO ZACARIAS APRN CHANGE CONSULTANT To: FINESSE Zacarias Nurse; Sent: 06/17/2016 11:32:58 SAFETY EQUIPMENT TESTING SPECIALIST Subject: RE: *Medication Refill Msg done From: WINTER SINGH LPN ( Deann Nurse) To: NATO ZACARIAS APRN CHANGE CONSULTANT; Sent: 06/17/2016 11:06:52 SAFETY EQUIPMENT TESTING SPECIALIST Subject: *Medication Refill Msg Caller is: [...] Call to Pharmacy ( ) Patient will cloth picker Script ( ) Mail Rx to Patient Source: [facility] POWERCHART Document Id: [id number] Electronically signed by Rajesh, [facility] Soft Tile Setter [id number] at 10/17/2016 1:32 AM CDT Miscellaneous - Ranulfo Garces M.D. - 02/14/2012 2:24 PM CDT Ambulatory [place] [address] Visit Information Name: ONESIMO WALTON Current Date: [...] No Appointments found Your Goals/Additional instructions: Source: [facility] POWERCHART Document Id: [id number] Miscellaneous - Ranulfo Garces M.D. - 02/14/2012 2:24 PM CDT [place]ulatory [place] [address] Visit Information Name: ONESIMO WALTON Visit Date: [...] your provider for clarification. Additional Information: Source: [facility] POWERCHART Document Id: [id number] Miscellaneous - Huong Nvaas P.A.-C. 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 - 02/14/2012 [...] HUONG NAVAS - 02/14/2012 13:58 CDT [facility] Document Id: [id number] documented in this encounter Plan of Treatment Not on filedocumented as of this encounter Visit Diagnoses Not on filedocumented in this encounter
--- OUTSIDE RECORDS SUMMARY | 2022-03-31 07:58 | XMS_ITS | Encounter Summary ---
:1950 Author Organization [facility] Address [address] [place] [address] Care Team Providers Name Role Phone Unavailable Primary Care Provider Unavailable Encounter Details Date Type Department Care Team Description 08/19/2016 Hospital Encounter HX [facility] Chalo Malloy Jr., M.D. [address] [phone] (Wo rk) Social History [...] How often do you attend evangelical or sikhism services? 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 lancets [facility] [place] Dispense item 0 [...] Koenig M.D. - 08/19/2016 9:15 AM CDT [id number] The documentation for this visit is available in [employer] IMPRESSION/REPORT/PLAN #1 Diabetes No retinopathy or macular edema #2 IOL OU Stable New glasses RTO 1 year Chalo Koenig M.D./ Electronically Signed By: CHALO KOENIG MD On: 09/19/2016 10:14 PM Source: [facility] MHSDOLBEYNONRADSYS Document Id: [id number] documented in this encounter Miscellaneous Notes Miscellaneous - Chalo Koenig M.D. - 08/19/2016 10:22 AM CDT Ambulatory Patient Summary [address] [id number] Visit Information Name: ONESIMO WALTON RICHARD [facility] Number: [id number] Current Date: 08/19/2016 10:22:21 Physicians Attending Provider: CHALO KOENIG MD Primary Care Provider: NATO DOUGHERTY APRN LIQUID FERTILIZER SERVICER ONESIMO WALTON has been given the following [...] 12 hours NarcoticContract with [facility] [place] 06/28/16 (scanned) rOPINIRole (rOPINIRole 2 mg oral [...] FBCV Lab FBCV Lab 09/22/2016 09:15 FBCV [facility] Nato Dougherty CNP Attention: Contact your local [...] if you dont have one. Go to [email or web address] and click on Create Your Account. Then, follow the directions to complete the online form. Youll be asked for your [facility] number which you can find at the top of this document. Your Goals/Additional instructions: Source: [facility] POWERCHART Document Id: [id number] Miscellaneous - Chalo Koengi M.D. - 08/19/2016 10:22 AM CDT Ambulatory Discharge Medication List [address] [id number] Visit Information Name: YOHANA, ONESIMO RAMOS [facility] Number: [id number] Current Date: 08/19/2016 10:22:20 Attending Provider: CHALO KOENIG MD Primary Care Provider: NATO DOUGHERTY APRN LIQUID FERTILIZER SERVICER ONESIMO WALTON RICHARD has been given the [...] 12 hours NarcoticContract with [facility] [place] 06/28/16 (scanned) rOPINIRole (rOPINIRole 2 mg oral [...] MD Signed On:19-AUG-2016 10:22:17 Additional Information: Source: [facility] POWERCHART Document Id: [id number] Sánchez Frias - 08/19/2016 9:30 AM CDT Quality Measures Quality Measures Entered On: 08/19/2016 9:30 CDT Performed On: 08/19/2016 9:30 CDT by SÁNCHEZ PETERSON Diabetes Date of Last Eye Exam : 08/19/2016 CDT SÁNCHEZ PETERSON - 08/19/2016 9:30 CDT [facility] Document Id: [id number] CDT!3 Sánchez Frias - 08/19/2016 9:30 AM CDT Adult Rock Star Intake/History Adult [place] Intake/History Entered On: 08/19/2016 9:48 CDT Performed [...] 08/19/2016 9:30 CDT General Info Languages : Citizen Of [place] Is Patient Female and 13-50 no hysterectomy [...] SÁNCHEZ PETERSON - 08/19/2016 9:30 CDT Source: [facility] POWERCHART Document Id: [id number] CDT!24 documented in this encounter Plan of Treatment Not on filedocumented as of this encounter Visit Diagnoses Not on filedocumented in this encounter Additional Health Concerns Assessment Noted Time PHQ-9 Depression Total Score: 7 08/16/2016 9:01 AM CDT documented as of this encounter
--- OUTSIDE RECORDS SUMMARY | 2022-03-31 07:58 | XMS_ITS | Encounter Summary ---
:1950 Author Organization [facility] Address [address] [place] [address] Care Team Providers Name Role Phone Unavailable Primary Care Provider Unavailable Encounter Details Date Type Department Care Team Description 08/16/2016 Hospital Encounter HX F[facility]V FAMILYPRA Nato Dougherty, MANAGER SALT, C.N.P. [address] [place], [place] [phone] (Wo rk) Social History [...] How often do you attend samaritan or zoroastrian services? 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 Recheck A1c in 1 month. Scheduling eye exam with Dr. Holland. Ordered: OV Est Pt Level 4 - 36768 - 25 min Encounter for immunization Adacel given. Ordered: tetanus/diphth/pertuss (Tdap) adult/adol, 0.5 mL, IM, Once, 08/16/16 8:35:00 CDT OV Est Pt Level 4 - 08905 - 25 min tetanus/diphtheria/pertussis, acel (Tdap) (Adacel (Tdap)) adult vaccine charge Hypertension (HTN) Essential Primary NOS Uncontrolled, adding amlodipine 2.5 mg daily. Recheck blood pressure in one week. Ordered: OV Est Pt Level 4 - 26177 - 25 min XR Chest 2 Views Hypertriglyceridemia Start atorvastatin 20 mg daily. Recheck fasting lipids and AST in one month. Ordered: atorvastatin, 20 mg = 1 tab(s), PO, Bedtime, # 90 tab(s), 3 Refill(s), Maintenance, [facility] [place] [place] OV Est Pt Level 4 - [address] - 25 min Orders: amLODIPine, 2.5 mg = 1 tab(s), PO, Daily, # 60 tab(s), 0 Refill(s), Maintenance, [facility] [place] [place] AST Basic Metabolic Panel, Fasting* Consult to Ophthalmology Hemoglobin A1c Lipid Panel* Occult Blood QL [facility], [facility] [address] Return Visit Fam Med UR Microalbumin Random Electronically Signed By: NATO DOUGHERTY APRN SAMPLE TAILOR On: 08/16/2016 10:40 AM Source: [facility] POWERCHART Document Id: [id number] documented in this encounter Nursing Notes Nato [...] or tender areas of the foot ?? [phone] [facility], [address] [place] [address], [place] [address]. All rights reserved. This information is not intended as a substitute for professional medical care. Always follow your healthcare professional's instructions. Source: [facility] [employer] Document Id: [id number] documented in this encounter Miscellaneous Notes Miscellaneous - Nato Dougherty APRN, C.N.P. - 08/16/2016 10:42 AM CDT From: NATO DOUGHERTY APRN SAMPLE TAILOR To: ONESIMO WALTON Sent: 08/16/2016 10:42:15 CDT Onesimo, Chest x-ray is negative. Nato Source: [facility] [employer] Document Id: [id number] Electronically signed by Rajesh [facility] Hospitalgabi Master Control Operator [id number] at 10/26/2016 7:21 AM CDT Miscellaneous - Winter Singh LFeiP.N. - 08/16/2016 9:01 AM CDT PHQ-9 [...] SINGH LPN - 08/16/2016 9:01 CDT Source: [facility] [employer] Document Id: [id number] CDT!13 Miscellaneous - Nato Dougherty APRN, C.N.P. - 08/16/2016 8:34 AM CDT Ambulatory Patient Summary [address] [id number] Visit Information Name: ONESIMO WALTON [facility] Number: [id number] Current Date: 08/16/2016 08:34:30 Physicians Attending Provider: NATO DOUGHERTY APRN SAMPLE TAILOR Primary Care Provider: NATO DOUGHERTY APRN [facility] ONESIMO WALTON has been given the following [...] Oral, once a day [place] [facility] [address] [place] [address] aspirin (aspirin 325 mg oral tablet) 1 Tablet(s), Oral, once a day atorvastatin (atorvastatin 20 mg oral tablet) 1 Tablet(s), Oral, once a day (at bedtime) [place] [facility] [address] [place] [address] colchicine (colchicine 0.6 mg oral tablet) 1 [...] 12 hours NarcoticContract with [facility] [place] 06/28/16 (scanned) rOPINIRole (rOPINIRole 2 mg oral [...] or tender areas of the foot ?? [phone] [facility], [address] [place] [address], [place] [address]. All rights reserved. This information is not [...] you dont have one. Go to [email or web address] and click on Create Your Account. Then, follow the directions to complete the online form. Youll be asked for your [facility] number which you can find at the top of this document. Your Goals/Additional instructions: Source: [facility] POWERCHART Document Id: [id number] Miscellaneous - Nato Dougherty APRN, C.N.P. - 08/16/2016 8:34 AM CDT Ambulatory Discharge Medication List [address] [id number] Visit Information Name: YOHANAONESIMO ADAMS [facility] Number: [id number] Current Date: 08/16/2016 08:34:28 Attending Provider: NATO DOUGHERTY APRN SAMPLE TAILOR Primary Care Provider: NATO DOUGHERTY APRN SAMPLE TAILOR ONESIMO WALTON RICHARD has been given the [...] Oral, once a day New Routed to [address] [address] aspirin (aspirin 325 mg oral tablet) 1 Tablet(s), Oral, once a day atorvastatin (atorvastatin 20 mg oral tablet) 1 Tablet(s), Oral, once a day (at bedtime) New Routed to [address] [address] colchicine (colchicine 0.6 mg oral [...] 12 hours NarcoticContract with [facility] [place] 06/28/16 (scanned) rOPINIRole (rOPINIRole 2 mg oral [...] emergency. Electronically Signed By: NATO DOUGHERTY APRN SAMPLE TAILOR Signed On:16-AUG-2016 08:34:07 Additional Information: Source: [facility] POWERCHART Document Id: [id number] Miscellaneous - Winter Singh L.P.N. - 08/16/2016 [...] SINGH LPN - 08/16/2016 8:14 CDT Source: [facility] [employer]CHART Document Id: [id number] CDT!8 Brooklyncellaneous - Winter Singh L.P.N. 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
--- OUTSIDE RECORDS SUMMARY | 2022-03-31 07:58 | XMS_ITS | Encounter Summary ---
:1950 Author Organization [facility] Address [address] [place] [address] Care Team Providers Name Role Phone Elsewhere, Pcp Primary Care Provider Unavailable Encounter Details Date Type Department Care Team Description 08/19/2016 Historical Ophthalmology [facility] Chalo Barahona Jr., M.D. [address] [place], [place] [phone] (Wo rk) Social History [...] How often do you attend scientologist or hindu services? 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
--- OUTSIDE RECORDS SUMMARY | 2022-03-31 07:58 | XMS_ITS | Encounter Summary ---
:1950 Author Organization [facility] Address [address] [place] [address] Care Team Providers Name Role Phone Unavailable Primary Care Provider Unavailable Encounter Details Date Type Department Care Team Description 05/02/2008 Hospital Encounter HX [facility] FAMILYPRA Tee Dhillon M.D. [address] [place] [address] (Wo rk) Social History Tobacco [...] How often do you attend presybeterian or adventist services? 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
--- OUTSIDE RECORDS SUMMARY | 2022-03-31 07:58 | XMS_ITS | Encounter Summary ---
:1950 Author Organization [facility] Address [address] [place] [address] Care Team Providers Name Role Phone Unavailable Primary Care Provider Unavailable Encounter Details Date Type Department Care Team Description 06/22/2016 Hospital Encounter HX [facility] FAMILYPRA Nato Dougherty, DERRICK WORKER, C.N.P. [address], [place] [phone] (Wo rk) Social History [...] How often do you attend jainism or pentecostalism services? 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 documented as of this encounter Last Filed Vital Signs Vital Sign Reading Time Taken Comments Blood Pressure 164/88 06/22/2016 9:14 AM PLANT AND MACHINERY VALUER Pulse 72 06/22/2016 9:11 AM PLANT AND MACHINERY VALUER Temperature - - Respiratory Rate 20 06/22/2016 9:11 AM PLANT AND MACHINERY VALUER Oxygen Saturation - - Inhaled Oxygen Concentration - - Weight 73.2 kg (161 lb 6 oz) 06/22/2016 9:11 AM PLANT AND MACHINERY VALUER Height 173 cm (5' 8.11) 06/22/2016 9:14 AM PLANT AND MACHINERY VALUER Body Mass Index 24.46 06/22/2016 9:11 AM PLANT AND MACHINERY VALUER documented in this encounter Medications at Time [...] of this encounter Progress Notes Nato Dougherty, DERRICK WORKER, C.N.P. - 06/22/2016 10:25 AM CST Clinic Full Note CHIEF COMPLAINT/REASON FOR VISIT [facility] care. Diabetic. Needs refills on medications. Has chronic leg pain. HISTORY OF PRESENT ILLNESS This is Onesimo's first visit to [facility] in [place]. He was previously seen at [facility]. He is requesting old records. He has diabetes type 2 with neuropathy, uncontrolled. States last A1c was over 8. He has been on chronic narcotic pain medication for neuropathy. He does not tolerate Lyrica. We discussed having him seen in a Pain Clinic. He prefers to go to [place]. He has hypertension, blood pressure elevated on [...] Ordered: OV New Pt Level 4 - 89885 - 45 min DM2 Peripheral Neuropathy Uncontrolled Last A1c over 8.0. Checking lab today. Insulin prescriptions refilled. Diabetes education done today. Please see Financial Recording Clerk Intake form in the Electronic Health Record. He has been on chronic narcotics for peripheral neuropathy. Scheduling consult in the [place] [facility]. Ordered: Basic Metabolic Panel, Fasting* Hemoglobin A1c Lipid Panel* OV New Pt Level 4 - 28446 - 45 min UR Microalbumin Random Encounter for screening for malignant neoplasm of colon Ordered: OV New Pt Level 4 - 23330 - 45 min Gastroesophageal Reflux Disease (GERD ALEXANDRA) NOS Stable on omeprazole, refill provided. Ordered: OV New Pt Level 4 - 94120 - 45 min Gout Arthritis Stable on colchicine. No change in medication. Ordered: OV New Pt Level 4 - 15277 - 45 min Uric Acid Hypertension (HTN) Essential Primary NOS Elevated on 2 checks today. Continue lisinopril-hydrochlorothiazide and recheck blood pressure in one week. Ordered: OV New Pt Level 4 - 99007 - 45 min Thyroid Stimulating Hormone Orders: insulin lispro, 5-10 units, Subcut., 3xDayAC, # 15 mL, 2 Refill(s), Maintenance, Pharmacy: [facility], [place], [place] metoprolol, 200 mg = 1 tab(s), PO, Daily, do not crush or chew, # 30 tab(s), 5 Refill(s), Maintenance, Pharmacy: [facility], [place], [place] omeprazole, 20 mg = 1 cap(s), PO, Daily, # 30 cap(s), 11 Refill(s), Maintenance, Pharmacy: [facility], [place], [place] oxyCODONE-acetaminophen, 1-2 tab(s), PO, 3xDay, PRN Pain, # 90 tab(s), 0 Refill(s), Maintenance Occult Blood QL Immunochem, [place] [address] Vital Signs - Nurse Visit Electronically Signed By: NATO DOUGHERTY APRN, CNP On: 06/22/2016 10:55 AM Source: [facility] POWERCHART Document Id: [id number] T AND MACHINERY VALUER documented in this encounter Nursing Notes Nato Dougherty APRN, C.N.P. - 06/22/2016 10:56 AM CST Financial Recording Clerk Intake (Adult) Financial Recording Clerk Intake (Adult) Entered On: 06/22/2016 10:58 PLANT AND MACHINERY VALUER Performed On: 06/22/2016 10:56 PLANT AND MACHINERY VALUER by NATO DOUGHERTY APRN, CNP Assessment Program Type : Non-Program Diabetes Referring Provider : NATO DOUGHERTY APRN, CNP Special needs : None Method Used for DSME : Individual Last Educator Visit Date : 06/22/2016 PLANT AND MACHINERY VALUER Diabetes Type : Type 2 19 years and older Ethnicity : White/ Diabetes Onset : 1995 Diabetes Onset At Age : 46 years Current Treatment : Insulin vial Medication Compliance : Takes meds as prescribed Diabetes Medications Reviewed : Yes Time Spent With Patient : 15 Minutes NATO DOUGHERTY APRN, CNP - 06/22/2016 10:56 PLANT AND MACHINERY VALUER Education Diabetes Education Grid Topics : Problem Solving/Goal Setting - Treatment/Management Goals Individuals Taught : Patient Barriers to Learning : None evident Teaching Method : Explanation, Printed materials Teaching Evaluation : Verbalizes understanding NATO DOUGHERTY APRN, CNP - 06/22/2016 10:56 PLANT AND MACHINERY VALUER Comprehensive Program Goals Diabetes Education Goals Grid Diabetes Education Goal #1 row Diabetes Education Goal #2 row Diabetes Education Goal #3 row Date Goal Set : 06/22/2016 PLANT AND MACHINERY VALUER 06/22/2016 PLANT AND MACHINERY VALUER 06/22/2016 PLANT AND MACHINERY VALUER Goal : A1c less than 7-8 Annual eye exam Blood pressure less than 140/90 Related Content Area : Healthy eating Reducing risks Medication NATO DOUGHERTY APRN [facility] - 06/22/2016 10:56 PLANT AND MACHINERY VALUER NATO DOUGHERTY APRN [facility] - 06/22/2016 10:56 PLANT AND MACHINERY VALUER NATO DOUGHERYT APRN [facility] - 06/22/2016 10:56 PLANT AND MACHINERY VALUER Source: [facility] MetabarCHART Document Id: [id number] PLANT AND MACHINERY VALUER!37 T AND MACHINERY VALUER Nato Dougherty APRN, C.N.P. - 06/22/2016 9:41 [...] or tender areas of the foot ?? [phone] [place] [address]. All rights reserved. This information is not intended as a substitute for professional medical care. Always follow your healthcare professional's instructions. Source: [facility] POWERCHART Document Id: [id number] T AND MACHINERY VALUER documented in this encounter Miscellaneous Notes Miscellaneous - Nato Dougherty APRN, C.N.P. - 06/22/2016 1:58 PM CST Schedule Follow-Up Visit June 22, 2016 ONESIMO WALTON [address] [facility] [id number] Dear ONESIMO WALTON, Thank you for choosing [facility] for your health care needs. You recently [...] EGFR (MDRD) (mL/min/1.73m2) >60 06/22/2016 >=60 - [id number] (mg/dL) 24 06/22/2016 8 - 24 Calcium [...] Absolute (x10(9)/L) 2.80 06/22/2016 0.90 - 2.90 Schuyler Absolute (x10(9)/L) (H) 1.07 06/22/2016 0.30 - 0.90 Eos Absolute (x10(9)/L) (H) 0.68 06/22/2016 0.05 - 0.50 Baso Absolute (x10(9)/L) 0.04 06/22/2016 0.00 - 0.30 Sincerely, NATO DOUGHERTY [address] [place] [address] Electronic Signature Electronically Signed By: NATO DOUGHERTY APRN, CNP On: June 22, 2016 This document has images extracted. Source: [facility] POWERCHART Document Id: [id number] Electronically signed by Conversion, [facility] Senior Architect [id number] at 10/25/2016 11:39 PM CDT Miscellaneous - Nato Dougherty APRN, C.N.P. - 06/22/2016 10:58 AM PLANT AND MACHINERY VALUER Quality Measures Quality Measures Entered On: 06/22/2016 10:59 PLANT AND MACHINERY VALUER Performed On: 06/22/2016 10:58 PLANT AND MACHINERY VALUER by NATO DOUGHERTY APRN, CNP Diabetes Date of Last Foot Exam : 06/22/2016 PLANT AND MACHINERY VALUER Date of Last Diabetes Education : 06/22/2016 PLANT AND MACHINERY VALUER NATO DOUGHERTY APRN, CNP - 06/22/2016 10:58 PLANT AND MACHINERY VALUER Foot Exam Grid Left foot exam Right foot exam Dorsalis Pedis Pulse : Normal Normal Capillary Refill : Less than 3 seconds Less than 3 seconds 10 gm Monofilament Sensation Check : Intact Intact NATO DOUGHERTY APRN, CNP - 06/22/2016 10:58 PLANT AND MACHINERY VALUER NATO DOUGHERTY APRN, CNP - 06/22/2016 10:58 PLANT AND MACHINERY VALUER Source: [facility] MetabarCHART Document Id: [id number] PLANT AND MACHINERY VALUER!13 T AND MACHINERY VALUER Miscellaneous - Winter Singh L.P.N. - 06/22/2016 10:05 AM CST PHQ-9 PHQ-9 Entered On: 06/22/2016 10:05 PLANT AND MACHINERY VALUER Performed On: 06/22/2016 10:05 PLANT AND MACHINERY VALUER by WINTER SINGH LPN PHQ-9 Little interest [...] difficult WINTER SINGH LPN - 06/22/2016 10:05 PLANT AND MACHINERY VALUER Source: [facility] [employer] Document Id: [id number] PLANT AND MACHINERY VALUER!13 T AND MACHINERY VALUER Kelsi - Nato Dougherty APRN, C.N.P. - 06/22/2016 9:41 AM CST Ambulatory Patient Summary [address] [id number] Visit Information Name: ONESIMO WALTON [facility] Number: [id number] Current Date: 06/22/2016 09:41:23 Physicians [...] a day before meals New Routed to [facility] [address] [place] [address] lisinopril-hydroCHLOROthiazide (lisinopril-hydroCHLOROthiazide 20mg-12.5mg oral tablet) 1 Tablet(s),Oral, once a day metoprolol (Metoprolol Succinate ER 200 mg oral tablet, extended release) 1 Tablet(s), Oral, once a day do not crush or chew New Routed to [facility] [address] [place] [address] multivitamin with minerals (Centrum Silver Men's oral tablet) omeprazole (omeprazole 20 mg oral delayed release capsule) 1 cap, Oral, once a day New Routed to [facility] [address] [place] [address] oxyCODONE (OxyCONTIN 30 mg oral [...] or tender areas of the foot ?? [phone] [place] [address]. All rights reserved. This information is not [...] if you dont have one. Go to [email or web address] and click on Create Your Account. Then, follow the directions to complete the online form. Youll be asked for your [facility] number which you can find at the top of this document. Your Goals/Additional instructions: Source: [facility] POWERCHART Document Id: [id number] T AND MACHINERY VALUER Miscellaneous - Nato Dougherty APRN, C.N.P. - 06/22/2016 9:41 AM CST Ambulatory Discharge Medication List [address] [place] [id number] Visit Information Name: ONESIMO WALTON [facility] Number: [id number] Current Date: 06/22/2016 09:41:22 Attending Provider: NATO DOUGHERTY APRN [facility] Primary Care Provider: PCP, ELSEWHERE ONESIMO [...] a day before meals New Routed to [facility] [address] [place] [address] lisinopril-hydroCHLOROthiazide (lisinopril-hydroCHLOROthiazide 20mg-12.5mg oral tablet) 1 Tablet(s),Oral, once a day metoprolol (Metoprolol Succinate ER 200 mg oral tablet, extended release) 1 Tablet(s), Oral, once a day do not crush or chew [facility] [address] [place], [place] [id number] multivitamin with minerals (Centrum Silver Men's oral tablet) omeprazole (omeprazole 20 mg oral delayed release capsule) 1 cap, Oral, once a day [facility] [address] [place] [address] oxyCODONE (OxyCONTIN 30 mg oral tablet, extended [...] emergency. Electronically Signed By: NATO DOUGHERTY APRN REEL FILM INSPECTOR Signed On:22-JUN-2016 09:41:05 Additional Information: Source: [facility] MetabarCHART Document Id: [id number] T AND MACHINERY VALUER Miscellaneous - Winter Singh L.P.N. - 06/22/2016 9:14 AM CST Ambulatory Vitals Height Weight Ambulatory Vitals Height Weight Entered On: 06/22/2016 9:16 PLANT AND MACHINERY VALUER Performed On: 06/22/2016 9:14 PLANT AND MACHINERY VALUER by WINTER SINGH LPN Vitals/Ht/Wt Systolic Blood Pressure : 164 mmHg (>HHI) Diastolic Blood Pressure : 88 mmHg NIBP Mean : 113 mmHg BP Location : Right upper extremity Blood Pressure Cuff Size : Regular Height : 173 cm(Converted to: 5 ft 8 inch(es), 68 inch(es)) WINTER SINGH LPN - 06/22/2016 9:14 PLANT AND MACHINERY VALUER Source: [facility] POWERCHART Document Id: [id number] PLANT AND MACHINERY VALUER!8 T AND MACHINERY VALUER Miscellaneous - Winter Singh L.P.N. - 06/22/2016 9:11 AM CST Adult Housekeeping Associate Intake/History Adult Housekeeping Associate Intake/History Entered On: 06/22/2016 9:14 PLANT AND MACHINERY VALUER Performed On: 06/22/2016 9:11 PLANT AND MACHINERY VALUER by WINTER SINGH LPN Intake Chief Complaint [...] kg/m2 WINTER SINGH LPN - 06/22/2016 9:11 PLANT AND MACHINERY VALUER General Info Information Given By : Patient Preferred Communication Mode : Verbal Languages : Welsh Is Patient Female and 13-50 no hysterectomy : No WINTER SINGH LPN - 06/22/2016 9:11 PLANT AND MACHINERY VALUER Subjective Pain Symptoms : Yes WINTER SINGH LPN - 06/22/2016 9:11 PLANT AND MACHINERY VALUER Pain Scale Pain Scale Verbal 0-10 : Open WINTER SINGH LPN - 06/22/2016 9:11 PLANT AND MACHINERY VALUER Pain Pain Assessment Grid Pain 1 Pain 2 Location : Lower leg Upper leg Laterality : Bilateral Bilateral Intensity : 8 5 Time Pattern : Chronic, Constant Chronic, Constant WINTER SINGH LPN - 06/22/2016 9:11 PLANT AND MACHINERY VALUER WINTER SINGH LPN - 06/22/2016 9:11 PLANT AND MACHINERY VALUER Dependent Habits Exposure to Tobacco Smoke : Patient smokes Smoking Status : Current every day smoker Tobacco 2A : Yes Tobacco Use/Currently Using : Yes Tobacco Use/Last 30 Days : Yes Tobacco Use/Last 12 months : Yes Type : Cigarettes: Less than 20 per day Tobacco Use/Advised to Quit : Yes Alcohol Use : Yes WINTER SINGH LPN - 06/22/2016 9:11 PLANT AND MACHINERY VALUER Source: [facility] POWERCHART Document Id: [id number] PLANT AND MACHINERY VALUER!49 T AND MACHINERY VALUER Miscellaneous - Winter Singh LFeiP.NFei - 06/22/2016 9:09 AM CST Health Assessment Health Assessment Entered On: 06/22/2016 9:11 PLANT AND MACHINERY VALUER Performed On: 06/22/2016 9:09 PLANT AND MACHINERY VALUER by WINTER SINGH LPN Health Assessment Complete Health Assessment Complete or Modified : Annual Health Assessment Annual Health Assessment Completed : Yes WINTER SINGH LPN - 06/22/2016 9:09 PLANT AND MACHINERY VALUER Nutrition Nutrition Risk Factors by History Adult : None WINTER SINGH LPN - 06/22/2016 9:09 PLANT AND MACHINERY VALUER Functional Current Daily Living Assistance : None WINTER SINGH LPN - 06/22/2016 9:09 PLANT AND MACHINERY VALUER Dependent Habits Exposure to Tobacco Smoke : Patient smokes Smoking Status : Current every day smoker Tobacco 2A : Yes Tobacco Use/Currently Using : Yes Tobacco Use/Last 30 Days : Yes Tobacco Use/Last 12 months : Yes Type : Cigarettes: Less than 20 per day Tobacco Use/Advised to Quit : Yes Alcohol Use : Yes WINTER SINGH LPN - 06/22/2016 9:09 PLANT AND MACHINERY VALUER AUDIT Tool How Often Do You Have A Drink : 2 to 3 times a week How Many Drinks in a Day When Drinking : 1 or 2 Six or More Drinks On One Occassion : Never Audit Phase 1 Score : 3 WINTER SINGH LPN - 06/22/2016 9:09 PLANT AND MACHINERY VALUER Psychosocial Domestic Abuse Concerns : None Behavioral Health Screen/Safety Assmt : No Zoroastrianism Preference : Unknown WINTER SINGH LPN - 06/22/2016 9:09 PLANT AND MACHINERY VALUER Advance Directive Advanced Directives : No Advance Directive Additional Information : Yes WINTER SINGH CYNTHIA - 06/22/2016 9:09 PLANT AND MACHINERY VALUER Educ Needs Learning Style Preference Adult Grid Patient : Printed materials, Verbal explanation Family : Verbal explanation, Printed materials WINTER SINGH CYNTHIA - 06/22/2016 9:09 PLANT AND MACHINERY VALUER Source: [facility] POWERCHART Document Id: [id number] PLANT AND MACHINERY VALUER!34 T AND MACHINERY VALUER documented in this encounter Plan of Treatment Not on filedocumented as of this encounter Procedures Procedure Name Priority Date/Time Associated Comments Diagnosis ALBUMIN, RANDOM, U Routine 06/22/2016 9:55 AM Res ults for this PLANT AND MACHINERY VALUER procedure are i n the results section. LIPID PANEL, S Routine 06/22/2016 9:53 AM Results for this PLANT AND MACHINERY VALUER procedure are i n the results section. AUTOMATED Routine 06/22/2016 9:53 AM Results f or this DIFFERENTIAL, B PLANT AND MACHINERY VALUER procedure ar e in the results section. CBC WITH Routine 06/22/2016 9:53 AM Results f or this DIFFERENTIAL, B PLANT AND MACHINERY VALUER procedure ar e in the results section. URIC ACID, S/P Routine 06/22/2016 9:53 AM Results for this PLANT AND MACHINERY VALUER procedure are i n the results section. THYROID-STIMULATING Routine 06/22/2016 9:53 AM Re sults for this HORMONE-SENSITIVE PLANT AND MACHINERY VALUER procedure are in (S-TSH) the results section. HEMOGLOBIN A1C, B Routine 06/22/2016 9:53 AM Resu lts for this PLANT AND MACHINERY VALUER procedure are i n the results section. BASIC METABOLIC Routine 06/22/2016 9:53 AM Result s for this PANEL, S/P PLANT AND MACHINERY VALUER procedure are i n the results section. documented in this encounter Results (ABNORMAL) Microalbumin, Random, Urine (06/22/2016 9:55 AM PLANT AND MACHINERY VALUER) P athologist Signature Creatinine, 33 (L) 40 - 278 POWERCHART Random, U MGDL HXU Albumin % 96.8 MGL POWERCHART Albumin/Creati 294 (H) 0 - 17 MGG POWERCHART nine Ratio Specimen (Source) Anatomical Collection Method Collection Time Re ceived Time Location / / Volume Laterality Urine 06/22/2016 9:55 AM PLANT AND MACHINERY VALUER Nato Dougherty APRN, C.N.P. LAB URINE ORDERABLES Performing Organization Address City/[facility]/ZIP Code Phon e Number POWERCHART (ABNORMAL) Automated Differential (06/22/2016 9:53 AM PLANT AND MACHINERY VALUER) Patholo gist Method Time Signature Absolute 9.90 [...] Laterality Blood 06/22/2016 9:53 AM 7 9:53 PLANT AND MACHINERY VALUER AM PLANT AND MACHINERY VALUER Jennifer Stinson APRNNRinku. LAB BLOOD ADD-ON Performing Organization Address [facility] Phon e Number POWERCHART (ABNORMAL) CBC with Differential (06/22/2016 9:53 AM PLANT AND MACHINERY VALUER) Analysis Performed At Patho logist Time Signature Leukocytes 14.5 (H) 3.5 - 10.5 POWERCHART X109L Erythrocytes 4.05 (L) 4.32 - POWERCHART 5.72 H1285F Hemoglobin 13.3 (L) 13.5 - POWERCHART 17.5 GDL Hematocrit 38.7 (L) 38.8 - POWERCHART 50.0 MCV 95.6 (H) 81.0 - POWERCHART 95.0 FL HX RDW 13.3 11.8 - POWERCHART 15.6 Platelet Count 211 150 - 450 POWERCHART X109L Specimen (Source) Anatomical Collection Method Collection Time Re ceived Time Location / / Volume Laterality Blood 06/22/2016 9:53 AM PLANT AND MACHINERY VALUER Jennifer Stinson APRNN.P. LAB BLOOD ADD-ON Performing Organization Address City/[facility]/ZIP Code Phon e Number POWERCHART Uric Acid (06/22/2016 9:53 AM PLANT AND MACHINERY VALUER) P athologist Signature Uric Acid, S 8.0 3.7 - 8.0 POWERCHART MGDL Specimen (Source) Anatomical Collection Method Collection Time Re ceived Time Location / / Volume Laterality Blood 06/22/2016 9:53 AM PLANT AND MACHINERY VALUER William Stinson APRN.N.P. LAB BLOOD ADD-ON Performing Organization Address City/State/ZIP Code Phon e Number POWERCHART Thyroid-Stimulating Hormone-Sensitive (s-TSH) (06/22/2016 9:53 AM PLANT AND MACHINERY VALUER) P athologist Signature TSH 1.09 0.27 - [...] / Volume Laterality Blood 06/22/2016 9:53 AM PLANT AND MACHINERY VALUER Nato Dougherty APRN, C.N.P. LAB BLOOD ADD-ON Performing Organization Address City/State/ZIP Code Phon e Number POWERCHART (ABNORMAL) Lipid Panel (06/22/2016 9:53 AM PLANT AND MACHINERY VALUER) P athologist Signature Cholesterol, 179 <=199 MGDL [...] for FH and FDB is available [facility]: FH/ADH Genetic Reflex [place] (test ADHP). Acquired (non-genetic) causes of markedly increased LDL cholesterol include cholestatic liver disease due to the presence of LpX. If a genetic form of hypercholesterolemia is suspected, family studies including biochemical testing fo r lipids (total cholesterol,triglycerides, LDL cholesterol and HDL cholesterol) are recommended. ??Please contact the laboratory at or the on-line test catalog at [employer] for information about how to order these damion ts or to speak with a genetic counselor. Further interpretation would require clinical information. Total Cholesterol/HDL Ratio 5.00 PO WERCHART HXLDL/HDL 3 POWERCHART Specimen (Source) Anatomical Collection Method Collection Time Re ceived Time Location / / Volume Laterality Blood 06/22/2016 9:53 AM PLANT AND MACHINERY VALUER Nato Dougherty APRN, C.N.P. LAB BLOOD ADD-ON Performing Organization Address City/State/ZIP Code Phon e Number POWERCHART (ABNORMAL) Hemoglobin A1c (06/22/2016 9:53 AM PLANT AND MACHINERY VALUER) P athologist Signature Hemoglobin A1c, 8.4 (H) <=5.6 A1C POWERCHART B Specimen (Source) Anatomical Collection Method Collection Time Re ceived Time Location / / Volume Laterality Blood 06/22/2016 9:53 AM PLANT AND MACHINERY VALUER Nato Dougherty APRN, C.N.P. LAB BLOOD ADD-ON Performing Organization Address City/State/ZIP Code Phon e Number POWERCHART (ABNORMAL) BMP (Basic Metabolic Panel) (06/22/2016 9:53 AM PLANT AND MACHINERY VALUER) P athologist Signature Sodium, S 141 135 [...] MMOLL POWERCHART HXeGFR (MDRD) 51 (L) >=60 [id number] POWERCHART eGFR Black/ >60 >=60 [id number] POWERCHART Specimen (Source) Anatomical Collection Method Collection Time Re ceived Time Location / / Volume Laterality Blood 06/22/2016 9:53 AM PLANT AND MACHINERY VALUER Nato Dougherty APRN, C.N.P. LAB BLOOD ADD-ON Performing Organization Address City/State/ZIP Code Phon e Number POWERCHART documented in this encounter Visit Diagnoses Not on filedocumented in this encounter Additional Health Concerns Assessment Noted Time PHQ-9 Depression Total Score: 11 06/22/2016 10:[address] documented as of this encounter
--- OUTSIDE RECORDS SUMMARY | 2022-03-31 07:58 | XMS_ITS | Encounter Summary ---
:1950 Author Organization [facility] Address [address] [place] [address] Care Team Providers Name Role Phone Unavailable Primary Care Provider Unavailable Encounter Details Date Type Department Care Team Description 08/24/2016 Hospital Encounter HX [facility] Nato Dougherty, Shawn PRYesika, C.N.P. [address] [place], [place] [phone] (Wo rk) Social History [...] How often do you attend christian or episcopal services? Never 03/25/2021 Do you [...] at Date Recorded Male 03/24/2021 8:13 PM VIDEO INTERN documented as of this encounter Last [...] injection a day before meals. lancets [facility] [...] 11:50 AM CDT From: NATO DOUGHERTY APRN ELECTRICAL LINEMAN To: ONESIMO WALTON Sent: 08/25/2016 11:50:15 CDT Onesimo Colon screen is negative. Nato Results: Date Result Name Value Ref Range 08/24/2016 15:18 FIT/Fecal Occult Bld-[place] Negative (Negative - ) Source: [facility] POWERCHART Document Id: [id number] Electronically signed by Conversion, [facility] Costumed Character [id number] at 10/26/2016 7:21 AM CDT documented in [...] ordered if clinically indicated. Test Performed by: [address] [address] Specimen (Source) Anatomical Collection Method Collection Time [...]
--- OUTSIDE RECORDS SUMMARY | 2022-03-31 07:58 | XMS_ITS | Encounter Summary ---
:1950 Author Organization [facility] Address [address] [place] [address] Care Team Providers Name Role Phone Unavailable Primary Care Provider Unavailable Encounter Details Date Type Department Care Team Description 11/06/2009 Hospital Encounter HX [facility] Tee Dhillon M.D. [address] [place] [address] (Wo rk) Social History Tobacco [...] How often do you attend christian or islam services? 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 Addendum by KIRILL SINGH LPN on July 08, 2016 15:57:08 CURED MEATS SUPERVISOR From: KIRILL SINGH LPN ( Myrbipin Nurse) To: NATO DOUGHERTY APRN, CNP; Sent: 07/08/2016 15:57:08 CURED MEATS SUPERVISOR Subject: FW: *Phone Message/Deann Addendum by KIRILL SINGH LPN on July 08, 2016 15:56:59 CURED MEATS SUPERVISOR notified Stacie from [facility] that it is ok to change medication. Stated that they usually go with cymblata and they will take over ordering that. Addendum by RICHA BHATT on July 08, 2016 15:53:39 CURED MEATS SUPERVISOR Stacie from [facility] in [place] returned call - [phone] and ask for her and theywill find her for you Addendum by KIRILL SINGH LPN on July 08, 2016 14:49:16 CURED MEATS SUPERVISOR Attempted to contact patient. Message left to return my call. Addendum by NATO DOUGHERTY APRN, CNP on July 08, 2016 14:42:55 CURED MEATS SUPERVISOR From: NATO DOUGHERTY APRN, CNP To: FB Deann Nurse; Sent: 07/08/2016 14:42:55 CURED MEATS SUPERVISOR Subject: RE: *Phone Message/Deann Yes, that is Ok. Addendum by KIRILL SINGH LPN on July 08, 2016 14:30:08 CURED MEATS SUPERVISOR From: KIRILL SINGH LPN ( Myrom Nurse) To: NATO DOUGHERTY APRN, CNP; Sent: 07/08/2016 14:30:08 CURED MEATS SUPERVISOR Subject: FW: *Phone Message/[employer] Addendum by KIRILL SINGH LPN on July 08, 2016 14:29:59 CURED MEATS SUPERVISOR Spoke with: ( _ ) Patient ( _ ) Parent ( _ ) Spouse ( _ ) Child ( x Stacie [facility] [place] ) Other: _ Call back telephone number: [...] language for Healthcare discussion: _ Was an mortgage processing manager used for this call? _ Other ( --_ ) From: ROBERTO VENTURA ([address] Nurse) To: FINESSE Dougherty Nurse; Sent: 07/08/2016 14:18:53 CURED MEATS SUPERVISOR Subject: *Phone Message/[employer] Caller is: ( ) Patient ( ) Mother ( ) Father ( ) Spouse ( ) Daughter ( ) Son ( ) Pharmacy ( ) Other: Physician: Patient MRN #: Reason for Call: Message: [facility], called. They are looking to possibly change medication, looking for your approval for the plan. Please call [phone] can ask to speak to triage. Advice/Action: [...] back cell phone number ( ) Source: [facility] POWERCHART Document Id: [id number] documented in this encounter Plan of Treatment Not on filedocumented as of this encounter Visit Diagnoses Not on filedocumented in this encounter
--- NOTE | 2022-03-31 08:15 | CRLHL7_ITS ---
For Patients: As a result of the Century Cures Act, medical imaging exams and procedure reports are released immediately into your electronic medical record. You may view this report before your referring provider. If you have questions, please contact your health care provider. INDICATION: Right leg pain. COMPARISON: 03/16/2022. TECHNIQUE: Sagittal T1, T2, and STIR sequences. Axial T1 and T2 weighted sequences. FINDINGS: Normal vertebral body alignment. No fractures. No vertebral body loss of height. No ligamentous injury. No suspicious osseous lesions. Normal conus terminates at L1. Marrow edema of the articular processes of the right L4-5 facet joint may represent stress reaction or inflammation from facet arthritis. No suspicious osseous lesions. Normal conus terminates at L1. [id number] L1-2: No spinal canal or neural foraminal narrowing. L2-3: Mild disc degeneration. No narrowing of spinal canal. No neural foraminal narrowing. L3-4: Disc degeneration and posterior disc bulge. Flattening of the ventral thecal sac. Combined with ligament flavum and facet hypertrophy, there is moderate narrowing of spinal canal. Mild to moderate narrowing of the bilateral foramina. Mild facet arthropathy. L4-5: Disc degeneration and posterior disc bulge. Seven mm synovial cyst arising from the right facet joint. Moderate severe narrowing of the spinal canal. Right subarticular recess narrowing with impingement of the traversing right L5 nerve root. Superimposed small right paracentral disc extrusion measuring approximately 4 mm in diameter with 4 mm of caudal migration. Moderate right and mild left neural foraminal narrowing. Facet arthropathy, right greater left. L5-S1: Disc degeneration. Diffuse disc bulge. Synovial cyst arising from the right facet joint at L4-5 described above extends inferiorly with mass effect upon the right lateral aspect of the thecal sac at L5-S1. Mild narrowing of spinal canal. There is abutment but no pedro impingement of the traversing right S1 nerve root. Moderate right and mild left neural foraminal narrowing. Severe facet arthropathy. Degenerative changes of the SI joints. Normal paraspinal soft tissues. IMPRESSION: 1. Normal alignment. No fractures. 2. Marrow edema of the jugular processes of the right L4-5 facet joint which may represent stress reaction or inflammation. 3. At L3-4, moderate narrowing of spinal canal. Mild to moderate narrowing of the bilateral neural foramina 4. At L4-5, posterior disc bulge. Severe no matter synovial cyst of the right facet joint. Small right paracentral disc extrusion. Moderate severe narrowing of spinal canal. Impingement of the traversing right L5 nerve root. Moderate right and mild left neural foraminal narrowing. 5. At L5-S1, mild narrowing of the spinal canal. Moderate right and mild left neural foraminal narrowing. Dictated by Theodore Petersen MD @ 03/31/2022 1:46:49 PM (Electronically Signed)
== END 2022-03-31 07:44 | disposition home or self-care (01) ==
LOC: MRI 07:43
PROVIDERS: PCP Family Medicine; Visit Provider Family Medicine
DX: M79.604 Pain in right leg (principal); M51.26 Other intervertebral disc displacement, lumbar region; M51.27 Other intervertebral disc displacement, lumbosacral region
CPT/HCPCS: 72148

== ENCOUNTER 2022-04-28 13:51 | Inpatient (IN) | payer MEDICARE, BC, SELFPAY ==
[2022-04-28] VITALS (11 sets, daily range): BP systolic 75–153; BP diastolic 44–94; PULSE 8–84; RESP 16–20; TEMP 36.2–37; O2SAT 89–98; BMI 28.1; BMI 26.9
--- NOTE | 2022-04-28 14:21 | CRLHL7_ITS ---
For Patients: As a result of the Century Cures Act, medical imaging exams and procedure reports are released immediately into your electronic medical record. You may view this report before your referring provider. If you have questions, please contact your health care provider. INDICATION: Pain and swelling in right lower extremity TECHNIQUE: Ultrasound venous duplex lower right extremity. Compression venous exam was performed using holm-scale, color Doppler, and spectral Doppler imaging. COMPARISON: None FINDINGS: Sonographic imaging demonstrates the right common femoral, deep femoral, superficial femoral, popliteal, posterior tibial and greater saphenous and the contralateral left common femoral veins to be fully compressible with normal color Doppler blood flow. There is a mildly complex structure in the popliteal fossa measuring 7.8 x 2.4 x 4.3 cm. IMPRESSION: No DVT in the right lower extremity. Mildly complex structure in the right popliteal fossa may represent a Silveira`s cyst or hematoma. Correlate with any history of trauma in this region. Dictated by Paty Meier MD @ 04/28/2022 4:08:53 PM (Electronically Signed)
--- NOTE | 2022-04-28 14:28 | ED.GENADULT ---
HPI - General Adult General Chief complaint: Lower Extremity Swelling Stated complaint: Swollen right leg Time Seen by Provider: 04/28/22 13:55 History of Present Illness HPI narrative: 72-year-old man presenting with increasing pain and swelling of the right lower leg over the last 10 days. Does have a history of severe peripheral vascular disease. Has had amputations of numerous toes over the years. Does also have chronic kidney disease and history of radicular lumbar back pain. He takes OxyContin. History of diabetes as well with neuropathy and has insulin pump. Has not had any fever. No nausea. Recent lumbar spine injection. They report a cyst on his lumbar spine. No swelling or redness in the back noted. Having trouble keeping up with the pain in this leg now. No chest pain or shortness of breath. Does continue to smoke but spouse notes has only had 1 cigarette in the last 3 days. Son clinical liaison recently due to swelling in legs was doubled on his Lasix. Related Data Home Medications Medication Instructions Recorded Confirmed aspirin 325 mg tablet 325 mg PO DAILY 11/18/21 04/29/22 atorvastatin 20 mg tablet 20 mg PO HS 11/18/21 04/28/22 nortriptyline 50 mg capsule 100 mg PO HS 11/18/21 04/28/22 sodium bicarbonate 650 mg tablet 650 mg PO BID 11/18/21 04/28/22 ferrous gluconate 225 mg (27 mg 225 mg PO DAILY 12/09/21 04/29/22 iron) tablet (Fergon) amlodipine 5 mg tablet 10 mg PO DAILY 04/28/22 04/28/22 calcium citrate 200 mg (950 mg) 800 mg PO HS 04/28/22 04/28/22 tablet duloxetine 60 mg capsule,delayed 60 mg PO HS 04/28/22 04/28/22 release ergocalciferol (vitamin D2) 1,250 1,250 mcg PO .WEEKLY 04/28/22 04/28/22 mcg (50,000 unit) capsule furosemide 40 mg tablet 40 mg PO BID 04/28/22 04/28/22 insulin aspart U-100 100 unit/mL 80 unit subcut USEASDIRECTD 04/28/22 04/28/22 subcutaneous solution (Novolog U-100 Insulin aspart) pramipexole 1 mg tablet 1 mg PO HS 04/28/22 04/28/22 lisinopril 40 mg tablet 40 mg PO DAILY 04/29/22 04/29/22 Previous Rx's Medication Instructions Recorded blood-glucose sensor (Dexcom G6 #3 ea 11/25/21 Sensor device) doxepin 25 mg capsule 25 mg PO BID #60 caps 01/14/22 blood-glucose transmitter (Dexcom #1 ea 02/12/22 G6 Transmitter device) oxycodone 5 mg tablet 5 - 10 mg PO Q6H PRN pain #100 tabs 04/12/22 omeprazole 40 mg capsule,delayed 40 mg PO QDAY #90 caps 04/15/22 release carvedilol 25 mg tablet 25 mg PO DAILY #180 tabs 05/03/22 ampicillin sodium 2 gram 2 g IV Q6H #1 ea 05/06/22 intravenous solution Allergies Allergy/AdvReac Type Severity Reaction Status Date / Time morphine Allergy Severe itching Verified 04/28/22 14:04 and swelling pregabalin Allergy Severe itching Verified 04/28/22 14:04 and swelling gabapentin Allergy Intermediate swelling Verified 04/28/22 14:04 Ihxmlgx-QIC-DfZ Reductase Allergy Mild Unknown Verified 04/28/22 14:04 Inhibitor Review of Systems Status of ROS: Reports: 10 or more systems reviewed and unremarkable except as noted in History and below [facility] Medical History (Updated 05/06/22 @ 18:35 by Domo Farr MD) Abscess of skin Chronic pain Chronic pruritus Cognitive impairment Diabetic foot ulcer Diabetic gastroparesis (04/20/09) Diabetic neuropathy Erectile dysfunction (04/23/06) Gastroesophageal reflux disease Gout Hyperlipidemia Hypertension Lumbar radiculopathy Major depressive disorder with single episode (09/18/07) Peripheral arterial disease Polymyalgia rheumatica Restless legs syndrome Spinal stenosis of lumbar region Stage 3 chronic kidney disease Transient ischemic attack (2009) Type 2 diabetes mellitus Unsteady gait Vitamin D deficiency Surgical History History of amputation of left great toe (05/31/17) History of angioplasty of peripheral vessel (05/27/17) History of carpal tunnel release History of repair of right rotator cuff (2004) History of tonsillectomy Status post cataract extraction and insertion of intraocular lens (2007) Status post epidural steroid injection (07/06/18) Status post insertion of iliac artery stent Family History Sister Breast cancer, Onset Age: 70 Diabetes Brother Diabetes Stroke, Onset Age: 69 Heart disease, Onset Age: 69 Social History Narrative: -Siria, retired, 4 kids No EtOH Highest level of school completed/degree received: some college, no degree Smoking Status: Current every day smoker What tobacco products do you use: cigarettes Smoking packs per day: 0.5 Smoking cigarettes per day: 10.0 Years smoked: 40 Smoking pack-years: 20.00 Do you use any of these nicotine containing products: None Second hand tobacco smoke exposure: No How often do you have a drink containing alcohol: monthly or less Alcohol type details: rare AUDIT-C Alcohol total score: 1 Non-prescribed substance use: denies use Caffeine: Yes (pot of coffee daily) Are you now , , , , never or living with a partner: Social isolation score (0-1 are the most socially isolated patients): 1 service: No Exam Narrative: Exam Narrative: Pleasant. Watkins complexion to skin. Smells of cigarette smoke. Breathing easily lungs appear to be clear, a little resonant. Cardiovascular with regular rate and rhythm. No murmur rub or gallop identified. Distant though. Abdomen is soft and nontender. Glucose monitoring patch in place. Lower extremity with poor pulses. Right lower extremity 2+ pitting edema diffusely mildly tender. No erythematous changes. Absent 2 toes on the right foot due to amputation. Weaker in the right leg generally than the left which apparently is not new. Back without swelling or erythema. Const: Vital Signs, click to edit/add: Vital Signs - 24 hr 04/28/22 13:55 04/28/22 14:12 04/28/22 14:32 Temperature 97.7 F Pulse Rate [Right Pulse Oximeter] 8 L 75 Respiratory Rate 18 16 Blood Pressure [Le ft Upper Arm] 75/44 L 153/89 H Pulse Oximetry 98 95 95 Oxygen Delivery Me thod Room Air Room Air 04/28/22 14:30 04/28/22 15:02 Temperature Pulse Rate [Right Pulse Oximeter] 75 78 Respiratory Rate 16 16 Blood Pressure [Le ft Upper Arm] 123/56 L 150/58 H Pulse Oximetry 91 93 Oxygen Delivery Me thod Room Air Room Air Documenting provider has reviewed patient's vital signs: yes (Initial concerns with low blood pressure however recheck clearly improved.) Course Course Hospital Course: Patient was admitted with relatively severe musculoskeletal pain. This was somewhat nonspecific. A number of diagnoses were entertained as the cause of this including right L5 radiculopathy, right knee osteoarthritis and polymyalgia rheumatica. He seems to have responded to specific treatment for all 3 of those in the last week including prednisone during this hospital stay and corticosteroid injection into his knee on this hospital stay and an epidural steroid injection last week. On admission he was found to have a new anemia with a hemoglobin of 7.8 and guaiac-positive stools. He underwent upper endoscopy which showed gastritis without any significant high risk lesions. He is recommended to undergo colonoscopy as an outpatient Vital Signs Vital signs: Initial Vital Signs Temperature 97.7 F 04/28/22 13:55 Temperature Source Temporal Artery Scan 04/28/22 13:55 Pulse Rate 8 L 04/28/22 13:55 Respiratory Rate 18 04/28/22 13:55 Blood Pressure 75/44 L 04/28/22 13:55 Blood Pressure Mean 54 04/28/22 13:55 Blood Pressure Position Sitting 04/28/22 13:55 Pulse Oximetry 98 04/28/22 13:55 Oxygen Delivery Method 04/28/22 13:55 Vital Signs Temperature 97.7 F 04/28/22 13:55 Pulse Rate 8 L 04/28/22 13:55 Respiratory Rate 18 04/28/22 13:55 Blood Pressure 75/44 L 04/28/22 13:55 Pulse Oximetry 98 04/28/22 13:55 Oxygen Delivery Method 04/28/22 13:55 Temperature 98.6 F 05/06/22 07:00 Pulse Rate 100 05/06/22 07:00 Respiratory Rate 18 05/06/22 07:00 Blood Pressure 127/71 05/06/22 07:00 Pulse Oximetry 97 05/06/22 07:00 Oxygen Delivery Method 05/06/22 07:00 Medical Decision Making MDM Narrative Medical decision making narrative: Given presumed immobility, edema and diffuse pain I would think that DVTs leading differential. Ultrasound is pending in addition to lab work. Does not seem to be infectious etiology. Has dropped 3 g in hemoglobin over the last 5-6 weeks. Denies melena or hematochezia. High did do MIGUEL with stool guaiac which was positive for blood. Nursing reflecting on initial blood pressure of low 70s systolic wondering if this might have been orthostatic. Improved. spoke with ultrasonograper who noted complex fluid collection in leg. overread -- IMPRESSION: No DVT in the right lower extremity. Mildly complex structure in the right popliteal fossa may represent a Silveira`s cyst or hematoma. Correlate with any history of trauma in this region. I suspect this more likely represents silveira's cyst and not the source of anemia have discussed with hospitalist for admission. Medical Records Medical records reviewed: Yes I reviewed the patient's medical records Lab Data Lab results reviewed: Yes I reviewed the patient's lab results Labs: Lab Results 04/28/22 04/28/22 04/28/22 Range/Units 14:32 14:32 14:32 WBC 12.83 H (4.50-11.00) K/uL RBC 2.62 L (4.30-5.90) m/uL Hgb 7.8 L* (13.5-17.5) gm/dL Hct 23.8 L (37.0-53.0) % MCV 91 (80-100) fL MCH 30 (26-34) pg MCHC 33 (32-36) gm/dL RDW Coeff of Amirah 14.9 (11.5-15.5) % Plt Count 304 (140-440) K/uL Neut % (Auto) 80.1 H (42.0-72.0) % Lymph % (Auto) 7.2 L (20-44) % [place] % (Auto) 9.9 (0.0-11.0) % Eos % (Auto) 1.8 (0.0-7.0) % Baso % (Auto) 0.1 (0.0-3.0) % Neut # (Auto) 10.30 H (1.7-7.0) K/uL Lymph # (Auto) 0.90 (0.90-2.90) K/uL [place] # (Auto) 1.30 H (0.00-0.90) K/UL Eos # (Auto) 0.20 (0.00-0.50) K/uL Baso # (Auto) 0.00 (0.00-0.30) K/uL Abs Immat Gran (auto) 0.10 (0.00-0.30) K/uL Imm/Tot Granulo (auto) 0.9 % ESR (2-15) mm/hr INR 1.19 H (0.91-1.10) APTT 42 H (23-33) Seconds D-Dimer Quant (PE/DVT) 3.80 H (0.00-0.50) ug/ml Sodium 129 L (135-149) mmol/L Potassium 4.4 (3.6-5.1) mmol/L Chloride 93 L (96-114) mmol/L Carbon Dioxide 26 (20-32) mmol/L BUN 88 H (7-30) mg/dL Creatinine 4.1 H (0.5-1.5) mg/dL Estimated Creat Clear 16.76 Estimated GFR 15 ml/min Glucose 178 H (60-115) mg/dL Venous Lactic Acid (Serial Order) Calcium 7.1 L (8.4-10.6) mg/dL C-Reactive Protein 23.1 H (0.5-1.0) mg/dL Procalcitonin 3.05 H (<0.50) ng/mL Urine Color (Yellow) Urine Appearance (Clear) Urine pH (5.0-8.5) Ur Specific Bradford (1.000-1.030) Urine Protein (Negative) Urine Glucose (UA) (Negative) Urine Ketones (Negative) Urine Blood (Negative) Urine Nitrite (Negative) Urine Bilirubin (Negative) Urine Urobilinogen (0.2-1.0) Ur Leukocyte Esterase (Negative) Urine RBC (0-2) Urine WBC (0-5) Ur Squamous Epith Cells (None-Few) Urine Bacteria (None) 04/28/22 04/28/22 04/28/22 Range/Units 14:32 17:48 19:03 WBC (4.50-11.00) K/uL RBC (4.30-5.90) m/uL Hgb 8.8 L (13.5-17.5) gm/dL Hct (37.0-53.0) % MCV (80-100) fL MCH (26-34) pg MCHC (32-36) gm/dL RDW Coeff of Amirah (11.5-15.5) % Plt Count (140-440) K/uL Neut % (Auto) (42.0-72.0) % Lymph % (Auto) (20-44) % [place] % (Auto) (0.0-11.0) % Eos % (Auto) (0.0-7.0) % Baso % (Auto) (0.0-3.0) % Neut # (Auto) (1.7-7.0) K/uL Lymph # (Auto) (0.90-2.90) K/uL [place] # (Auto) (0.00-0.90) K/UL Eos # (Auto) (0.00-0.50) K/uL Baso # (Auto) (0.00-0.30) K/uL Abs Immat Gran (auto) (0.00-0.30) K/uL Imm/Tot Granulo (auto) % ESR (2-15) mm/hr INR (0.91-1.10) APTT (23-33) Seconds D-Dimer Quant (PE/DVT) (0.00-0.50) ug/ml Sodium (135-149) mmol/L Potassium (3.6-5.1) mmol/L Chloride (96-114) mmol/L Carbon Dioxide (20-32) mmol/L BUN (7-30) mg/dL Creatinine (0.5-1.5) mg/dL Estimated Creat Clear Estimated GFR ml/min Glucose (60-115) mg/dL Venous Lactic Acid (Serial Order) Calcium (8.4-10.6) mg/dL C-Reactive Protein (0.5-1.0) mg/dL Procalcitonin (<0.50) ng/mL Urine Color Yellow (Yellow) Urine Appearance Clear (Clear) Urine pH 5.5 (5.0-8.5) Ur Specific Bradford <= 1.005 (1.000-1.030) Urine Protein 1+ A (Negative) Urine Glucose (UA) Negative (Negative) Urine Ketones Negative (Negative) Urine Blood Trace-intact A (Negative) Urine Nitrite Negative (Negative) Urine Bilirubin Negative (Negative) Urine Urobilinogen 0.2 (0.2-1.0) Ur Leukocyte Esterase 1+ A (Negative) Urine RBC 0-2 (0-2) Urine WBC 0-2 (0-5) Ur Squamous Epith Cells Few (None-Few) Urine Bacteria None (None) 04/28/22 04/29/22 04/29/22 Range/Units 19:03 06:40 06:40 WBC 10.28 (4.50-11.00) K/uL RBC 2.84 L (4.30-5.90) m/uL Hgb 8.4 L (13.5-17.5) gm/dL Hct 26.0 L (37.0-53.0) % MCV 92 (80-100) fL MCH 30 (26-34) pg MCHC 32 (32-36) gm/dL RDW Coeff of Amirah 15.0 (11.5-15.5) % Plt Count 332 (140-440) K/uL Neut % (Auto) 90.7 H (42.0-72.0) % Lymph % (Auto) 5.8 L (20-44) % [place] % (Auto) 2.8 (0.0-11.0) % Eos % (Auto) 0.0 (0.0-7.0) % Baso % (Auto) 0.0 (0.0-3.0) % Neut # (Auto) 9.30 H (1.7-7.0) K/uL Lymph # (Auto) 0.60 L (0.90-2.90) K/uL [place] # (Auto) 0.30 (0.00-0.90) K/UL Eos # (Auto) 0.00 (0.00-0.50) K/uL Baso # (Auto) 0.00 (0.00-0.30) K/uL Abs Immat Gran (auto) 0.07 (0.00-0.30) K/uL Imm/Tot Granulo (auto) 0.7 % ESR 102 H (2-15) mm/hr INR (0.91-1.10) APTT (23-33) Seconds D-Dimer Quant (PE/DVT) (0.00-0.50) ug/ml Sodium 134 L (135-149) mmol/L Potassium 4.4 (3.6-5.1) mmol/L Chloride 98 (96-114) mmol/L Carbon Dioxide 25 (20-32) mmol/L BUN 82 H (7-30) mg/dL Creatinine 3.9 H (0.5-1.5) mg/dL Estimated Creat Clear 17.62 Estimated GFR 16 ml/min Glucose 178 H (60-115) mg/dL Venous Lactic Acid (Serial Order) Calcium 7.4 L (8.4-10.6) mg/dL C-Reactive Protein 26.0 H (0.5-1.0) mg/dL Procalcitonin (<0.50) ng/mL Urine Color (Yellow) Urine Appearance (Clear) Urine pH (5.0-8.5) Ur Specific Bradford (1.000-1.030) Urine Protein (Negative) Urine Glucose (UA) (Negative) Urine Ketones (Negative) Urine Blood (Negative) Urine Nitrite (Negative) Urine Bilirubin (Negative) Urine Urobilinogen (0.2-1.0) Ur Leukocyte Esterase (Negative) Urine RBC (0-2) Urine WBC (0-5) Ur Squamous Epith Cells (None-Few) Urine Bacteria (None) Discharge Plan Discharge Clinical Impression: Leg pain, GI bleed, Silveira's cyst of knee, Anemia Patient Disposition: Admitted As Inpatient Condition: Stable Activity Level: Activity as Tolerated Discharge Diet: Diabetic
--- OUTSIDE RECORDS SUMMARY | 2022-04-28 14:37 | XMS_ITS | Clinical Summary ---
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 Respiratory Rate 20 05/08/2020 12:26 AM WELDING MACHINE TENDER Oxygen Saturation 96% 03/17/2021 10:15 AM CDT Inhaled Oxygen Concentration - - Weight 83.9 kg (185 lb) 03/17/2021 10:15 AM CDT Height 175.3 cm (5' 9.02) 05/07/2020 8:29 PM WELDING MACHINE TENDER Body Mass Index 27.31 05/07/2020 8:29 PM WELDING MACHINE TENDER Plan of Treatment Health Maintenance Due Date Last Done Comments Tdap 01/30/1963 Hepatitis C screening for age 0901/30/1970 18-79 Pneumococcal series for age 65+ (2 02/13/2011 02/13/2010 - PCV) Zoster (shingles) series for age 1103/29/2012 02/02/2012 50+ (2 of 3) Colonoscopy through age 75 02/05/2016 02/04/2006 (Completed outside of [facility]) Medicare Wellness for age 65+ 01/30/2017 BMI [...] Address T ype Group Dates WC WORKERS [employer] [id number] Effective for [phone] COMP COMP all dates [address] [place] [address] [employer] [id number] 2008-Pres [phone] [address] COMP COMP [address] [place] [address] MEDICARE PART MEDICARE PART [id number] 2019-Prese ATT N: CLAIMS B - HB USE B HB ONLY nt [address] [place] [address] [employer] MR ANDRAE DAN [id number] 2019-Prese [address] [address] [place], [place] [id number] [employer] Comp Self 1950 [address] [phone] Oracio HERNANDEZ (Work) [address] [employer] Self 1950 [address] [phone] Oracio HERNANDEZ (Work) [id number] Care Teams Medicine Aide Relationship Specialty Start Date End Date Pcp, No PCP - General 04/17/16 . Casa Lucia MD Ophthalmology Ophthalmology Surgery 12/22/11 [address] [facility] [address] [place] [address]
[2022-04-28 14:38] LABS: Lactate Sepsis w/Reflex* 1.2 mmol/L (0.5-1.9)
[2022-04-28 14:38] LABS: Basophils Percent Auto 0.1 % (0.0-3.0); Eosinophils Percent Auto 1.8 % (0.0-7.0); Hematocrit 23.8 % (37.0-53.0); Immature Granulocytes Pct Auto 0.9 %; Lymphocytes Percent Auto 7.2 % (20-44); Mean Corpuscular HGB Conc 33 gm/dL (32-36); Mean Corpuscular Hemoglobin 30 pg (26-34); Mean Corpuscular Volume 91 fL (80-100); Monocytes Percent Auto 9.9 % (0.0-11.0); Neutrophils Percent Auto 80.1 % (42.0-72.0); Platelet Count* 304 K/uL (140-440); RDW Coefficient of Variation % 14.9 % (11.5-15.5); Red Blood Count 2.62 m/uL (4.30-5.90); White Blood Count* 12.83 K/uL (4.50-11.00)
--- OUTSIDE RECORDS SUMMARY | 2022-04-28 14:38 | XMS_ITS | Clinical Summary ---
:1950 Author Organization [facility] Address [address] [place] [address] Care Team Providers Name Role Phone Elsewhere, Pcp Primary Care Provider Unavailable Source Comments Patient records contain information from all sites at [facility]. For routine questions regarding patient records, call [phone] during business hours, M-F 8:00 AM - 5:00 PM Central Time. Record requests for emergency care only can be directed to [phone] at any time.[facility] Allergies Active Allergy Reactions Severity Noted Date Comments Gabapentin Other (see comments) Medium 08/04/2020 Dizzy, memory issue Morphine Itching, Rash Medium 02/14/2012 itchy Pregabalin Anaphylaxis High 02/16/2017 swell Kmrzhgn-Fys-Ady Myalgia Low 02/13/2014 Reductase Inhibitors Medications Medication [...] capsule BY MOUTH EVERY DAY AT BEDTIME oxyCODONE Take 5-10 mg by 0 08/14/2021 Act radha (ROXICODONE) 5 mg mouth every 6 immediate release (six) hours as tablet needed. 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 calcium citrate TAKE FOUR TABLETS 300 tablet 3 04/19/2022 Active (CALCITRATE) 950 mg BY MOUTH AT (200 mg calcium) BEDTIME (DOSE tablet INCREASE) calcium citrate Take 4 tablets 300 tablet 3 06/16/2021 02 Discontinued (CALCITRATE) 950 mg (800 mg of calcium 2 (200 mg calcium) total) by mouth at tablet bedtime. Increased to 4 pills at bedtime furosemide (LASIX) 40 Take 1.5 tablets 135 tablet 3 09/28/2021 Discontinued mg tablet (60 mg total) by 2 mouth daily. Active Problems Patient Care Coordination Note Formatting of this note might be differe nt from the original. Spouse: Siria Children: Yosi, Maria M, Paty, Pat, 13 grand babies Work: no Problem Noted Date Hyperparathyroidism Secondary 05/27/2021 Diabetes Mellitus Type 2 With Diabetic Nephropathy 04/2022 Follow Up Examination Status Post Surgery 02/10/2021 Hyperkalemia 09/29/2020 Acidosis Metabolic Hyperchloremic 09/29/2020 Osteodystrophy Renal 06/16/2020 Anemia Of Chronic Renal Disease 06/16/2020 Acute Respiratory Failure With Hypoxia 05/08/2020 Pneumonia Community Acquired 05/08/2020 Neuropathy Peripheral 04/21/2018 Restless Leg Syndrome 01/12/2018 Atherosclerosis Of [place] Arteries Of Extremities With Intermittent 08/08/2017 Claudication Right Leg Hyperlipidemia 07/22/2017 Ulcer Leg Left 04/19/2017 Ulcer Toe Left 04/19/2017 Atherosclerosis Of [place] Arteries Of Left Leg With Ul ceration Of 04/19/2017 Unspecified Site Peripheral Arterial Disease 02/16/2017 Hypertension NOS 02/16/2017 Hypertensive Chronic Kidney Disease (CKD) Stage 3b Peace merular Filtration 09/23/2016 Rate (GFR) 30 To 44 Overview: Hypertension (HTN) And CKD Stage 1-4 Mild Disabilities Teacher Use Of Insulin Active 09/23/2016 Overview: Mild Disabilities Teacher Use Of Insulin Active Depression Major Recurrent Moderate 06/22/2016 Overview: Depression Major Recurrent Moderate Diabetes Mellitus Type 2 With Other Circulatory Compli cation Hyperglycemic 06/22/2016 Overview: DM2 Peripheral Neuropathy Uncontrolled Encounters Date Type Specialty Care Team Description 04/26/2022 Refill Nephrology and [place], Med Refill Hypertension Susana Reddy APRN, C.N.P., M.S. 04/19/2022 Refill Nephrology and [place], Med Refill Hypertension Susana Reddy APRN, C.N.P., M.S. 04/06/2022 External Nephrology and [place], 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 (HCC) (Primary Dx); Outreach Hypertension Haseeb Thomas Jr., Diabetes Melli tus Type 2 With Diabetic Nephropathy (HCC); D.O. Anemia Of Chron ic Renal Disease; Hyperparathyroi dism Secondary (HCC); Atherosclerosis Of [place] Arteries Of Left Leg With Ulceration Of Unspecified Site (HCC); Depression Yumiko r Recurrent Moderate (HCC) 03/23/2022 External Nephrology and [place], No Show Outreach Hypertension Haseeb Thomas Jr., D.O. 02/23/2022 Office Visit Vascular Medicine [facility], Follow Up Examination Status Post Surgery (Primary Dx); Jayjay Escobar, Peripheral Katya rial Disease (HCC) P.A.-C. 02/23/2022 [facility] Radiology [facility], [facility] En[facility] Jayjay Escobar, Status Post Jewell devin PAureaC. 02/23/2022 [facility] Radiology [facility], Follow Up [facility] Encounter Jayjay Escobar, Status Post Jewell devin P.A.-C. 02/23/2022 [facility] Vascular Medicine [facility], Peripheral Arterial Disease (HCC) (Primary Dx); Encounter Jayjay Escobar, Follow Up [facility] Status Post Surgery P.A.-C. from Last 3 Months Immunizations Name Administration [...] How often do you attend alevism or voodoo services? 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 Vital Signs Vital Sign Reading Time Taken Comments Blood Pressure 102/64 04/06/2022 8:37 AM GUN SYNCHRONIZER Pulse 78 04/06/2022 8:37 AM GUN SYNCHRONIZER Temperature 36.7 ??C (98.1 ??F) 05/10/2020 12:30 PM GUN SYNCHRONIZER Respiratory Rate 31 05/10/2020 1:45 PM GUN SYNCHRONIZER Oxygen Saturation 96% 05/10/2020 12:30 PM GUN SYNCHRONIZER Inhaled Oxygen Concentration - - Weight 85.8 kg (189 lb 2.5 oz) 04/06/2022 8:37 AM GUN SYNCHRONIZER Height 175.2 cm (5' 8.98) 04/06/2022 8:37 AM GUN SYNCHRONIZER Body Mass Index 27.95 04/06/2022 8:37 AM GUN SYNCHRONIZER Plan of Treatment Health Maintenance Due Date [...] , Pfizer series) 08/09/2020, Additional history exists Creatinine Level 11/04/2022 11/04/2021, 10/21/2021, 09/24/2021, Additional history exists Potassium Level 11/04/2022 11/04/2021, 10/21/2021, 09/24/2021, Additional history exists Sodium Level 11/04/2022 11/04/2021, 09/24/2021, 08/24/2021, Additional history exists Urine Albumin 11/04/2022 11/04/2021, 08/24/2021, 05/22/2021, Additional history exists Office Visit for Blood Pressure 04/06/2023 04/06/2022 Check / Re-check Lipid (Cholesterol) Screening 02/10/2026 02/10/2021, 2017, 09/20/2016, [...] history exists Medical Devices Implanted Type Area Cloth Edge Singer Device Shelf Model / Identifier Expiration Serial / Date Lot Patch Vasc Bovine.08cm X 8cm - Flores [id number] Mesh or Other/Legacy - S ynovis Implanted: Qty: 1 on 04/04/2017 Patch See Implant Description Description: Device Cloth Edge Singer - Synov is. Body Location - Other. Vascular. Device Status Text - [id number]. Ocular Lens-10/29/2007 Ocular Lens Bilateral: Eye Implanted: 10/29/2007 by Nato Dougherty, JULIÁN, C.N.P. 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 Eye L. Eye R. Device Status Text - OculrLens. Conversions - Default Historical Implant Device Ocular Lens Left: Eye Implanted: 05/27/2017 (Quantity not on file) Description: Body Location - Eye L. Mary ce Status Text - OculrLens. Stent Vbx [id number] - Flores [id number] Vascular Graft Other/Legacy - See Implant [place] Implanted: Qty: 1 on 03/04/2017 Description Description: Device Cloth Edge Singer - Stick and Play.. Body Location - Other. n/a. Device Status Text - [id number]. Stent Zilver Ptx 6mm X 60mm - Flores [id number] Vascular Stent Other /Legacy - See [employer] Implanted: Qty: 1 on 04/04/2017 Implant Description Description: Device Cloth Edge Singer - [place]woodo. Body Location - Other. Left. Device Status Text - [id number]. Stent Zilver Ptx 6mm X 80mm - Flores [id number] Vascular Stent Right : Other/Legacy - [employer] / Implanted: Qty: 1 on 08/31/2017 See Implant Inc. [id number] / Description Description: Device Cloth Edge Singer - [place]woodo. Body Location - Right. Device Status Text - [id number]. Stnt Innova Otw [id number] - [id number] Vascular [place] 05/23/2020 [id number] / Implanted: Qty: 1 on 04/18/2018 by Kemar Velásquez M.B.BFeiSFei at [facility] Stent Scientific / [id number] Stnt Innova Otw [id number] - [id number] Vascular Left: [place] 09/05/2020 [id number] / Implanted: Qty: 1 on 05/11/2019 by Kemar Velásquez M.B.B.SFei at [facility] Stent Leg Scientific / [id number] Procedures Procedure Name Priority Date/Time Associated Comments [...] artery. Jayjay Pak P.A.-C. IMG US PROCEDURES Lower Extremity [...] Signature Ventricular Rate 78 BPM MUSE ECG/Min LA Interval 160 ms MUSE QRSD Interval 144 ms MUSE QT Interval 424 ms MUSE QTC Interval 483 ms MUSE P [place] 69 degrees MUSE R [place] -4 degrees MUSE T Wave [place] 20 degrees MUSE Specimen Anatomical Collection Method [...] e / Group Dates MEDICARE MEDICARE A [id number] 2019-Pres [address] [place] [address] BLUE CROSS BCBS INUPIAT [id number] 2019-Pres [phone] PO OMAR X Cost Share BLUE SHIELD BLUE COST ent [phone] SHARE ANGIE [place] [phone] Advance Directives For more information, please contact: [phone] Latest Code Status on File Code Status [...] Answer Comments Full Code: Discussed Care Teams Spark Tester Relationship Specialty Start Date End Date Elsewhere, Pcp PCP - General Family Medicine 01/29/20
--- OUTSIDE RECORDS SUMMARY | 2022-04-28 14:38 | XMS_ITS | Encounter Summary ---
:1950 Author Organization [facility] Address [address] [place] [address] Care Team Providers Name Role Phone Elsewhere, Pcp Primary Care Provider Unavailable Encounter Details Date Type Department Care Team Description 10/21/2021 Hospital Encounter Department of Wellalfredoitter, Hyperte nsion And Chronic Kidney Disease Stage 1 To 4; Laboratory Medicine Hui Reddy APRN, Chroni c Kidney Disease Stage 4 Glomerular Filtration Rate 15-29 (HCC) in [place], C.N.P., D.N.P. [address] [place] [phone] Social History Tobacco Use Types Packs/Day Years [...] How often do you attend pentecostal or anabaptist services? 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 calcium citrate Take 4 tablets (800 300 tablet 3 06/16/2021 04/19/2022 (CALCITRATE) 950 mg (200 mg of calcium total) mg calcium) tablet by mouth at bedtime. Increased to 4 pills at bedtime furosemide (LASIX) 40 mg Take 1.5 tablets (60 135 tablet 3 0 09/28/2021 04/06/2022 tablet mg total) by mouth daily. Take 1 tablet by 0 02/24/20 22 ugjahqx-Jz-inwt-FA 27 mg mouth daily. iron- 1 mg [...] eGFR-Black/Afri 20 (L) >=60 10/21/2021 [place] can [place] mL/min/BSA 2:21 PM CDT Comment: ----ADDITIONAL INFORMATION---- Estimated GFR calculated using the 2009 CKD_EPI creatinine equation. eGFR Non-Black/ 17 (L) >=60 mL/min/BSA 10/21/2021 2:21 PM CDT [place] Comment: ----ADDITIONAL INFORMATION---- Estimated GFR calculated using the 2009 CKD_EPI creatinine equation. Specimen Anatomical Collection Method Collection Time Receive d Time (Source) Location / / Volume Laterality Blood (Blood, 10/21/2021 12:02 10/21/2021 1:05 Venous) PM CDT PM CDT Hui Delgado APRN C.N.P., D.N.P. LAB BLOOD AD D-ON Performing Organization Address City/State/ZIP Code Phon e Number [facility] [address] [place] [address] [place] [address] System in [place] [address] Potassium (10/21/2021 12:02 PM CDT) P athologist Signature Potassium, P 4.8 3.6 - 5.2 10/21/2021 [place] mmol/L 2:21 PM CDT Specimen Anatomical Collection Method Collection Time Receive d Time (Source) Location / / Volume Laterality Blood (Blood, 10/21/2021 12:02 10/21/2021 1:05 Venous) PM CDT PM CDT Huikenneth Delgado APRN, C.N.P., Kylah.N.P. LAB BLOOD AD D-ON Performing Organization Address City/State/ZIP Code Phon e Number [facility]- [address] [place] [address] [place] [address] System in [place] [address] documented in this encounter Visit Diagnoses Diagnosis Hypertension And Chronic Kidney Disease Stage 1 To 4 Chronic Kidney Disease Stage 4 Glomerula r Filtration Rate 15-29 (HCC) documented in this encounter Additional Health Concerns Assessment Noted Time PHQ-9 Depression Total Score: 3 01/03/2018 10:38 AM CD T documented as of this encounter Care Teams Consulting Technical Manager Relationship Specialty Start Date End Date Elsewhere, Pcp PCP - General Family Medicine 01/29/20 documented as of this encounter
--- OUTSIDE RECORDS SUMMARY | 2022-04-28 14:38 | XMS_ITS | Encounter Summary ---
:1950 Author Organization [facility] Address [address] [place] [address] Care Team Providers Name Role Phone Elsewhere, Pcp Primary Care Provider Unavailable Reason for Referral Outpatient (Routine) - Closed Specialty Diagnoses / Procedures Referred By Contact Refer red To Contact Diagnoses Follow Up Examination Status Post Surgery Jayjay Pak P.A.-C. [facility] Procedures US Lower Extremity Arteries Bilateral US Lower Extremity Artery Graft Bilateral [address] [place] [phone] Referral ID Status Reason Start Date Expiration Date Visits Requ ested Visits Authorized [id number] Closed 10/23/2021 10/23/2022 1 1 Reason for Visit Outpatient (Routine) - Closed Specialty Diagnoses / Procedures Referred By Contact Refer red To Contact Diagnoses Follow Up Examination Status Post Surgery Jayjay Pak P.A.-C. [facility] Procedures US Lower Extremity Arteries Bilateral US Lower Extremity Artery Graft Bilateral [address] [place] [phone] Referral ID Status Reason Start Date Expiration Date Visits Requ ested Visits Authorized [id number] Closed 10/23/2021 10/23/2022 1 1 Encounter Details Date Type Department Care Team Description 02/23/2022 Hospital Encounter Department of Jayjay Pak Follow Up Examination Radiology, Santiago Escobar P.A.-C. Status Post Surgery Building, in [address] [place] [address] [place] [phone] [place], [place] [phone] (Work) [phone] Social History Tobacco Use Types Packs/Day Years [...] How often do you attend adventist or yazidi services? 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 Increased to 4 pills at bedtime furosemide (LASIX) 40 mg Take 1.5 tablets (60 135 tablet 3 0 09/28/2021 04/06/2022 tablet mg total) by mouth daily. documented as of this encounter Plan of [...] Peroneal: Patent and without stenosis pr oximally. MMII RIGHT: PT: 0.91 DP: 0.88 Borderline MIMI [...] left posterior tibial artery. Jayjay Pak P.A.-C. IMSophie US PROCEDURES documented in this encounter Visit Diagnoses Diagnosis Follow Up Examination Status Post Surger y documented in this encounter Additional Health Concerns Assessment Noted Time PHQ-9 Depression Total Score: 3 01/03/2018 10:38 AM CD T documented as of this encounter Care Teams Cream Maker Relationship Specialty Start Date End Date Elsewhere, Pcp PCP - General Family Medicine 01/29/20 documented as of this encounter
--- OUTSIDE RECORDS SUMMARY | 2022-04-28 14:38 | XMS_ITS | Encounter Summary ---
:1950 Author Organization [facility] Address [address] [place] [address] Care Team Providers Name Role Phone Elsewhere, Pcp Primary Care Provider Unavailable Reason for Visit Reason Comments Med Refill Encounter Details Date Type Department Care Team Description 04/19/2022 Refill Division of Nephrology and [place], Shasha Reddy APRN, Med Refill Hypertension in [facility].N.P ., M.S. [place] [address] [facility] [address] [place] [address] [place] [address] [phone] Social History Tobacco Use Types Packs/Day Years [...] often do you attend latter day or pentecostal services? Never 03/25/2021 Do you [...] at Date Recorded Male 03/24/2021 8:13 PM [employer] documented as of this encounter Plan of Treatment Not on filedocumented as of this encounter Visit Diagnoses Not on filedocumented in this encounter Additional Health Concerns Assessment Noted Time PHQ-9 Depression Total Score: 3 01/03/2018 10:38 AM CD T documented as of this encounter Care Teams Snow Maker Relationship Specialty Start Date End Date Elsewhere, Pcp PCP - General Family Medicine 01/29/20 documented as of this encounter
--- OUTSIDE RECORDS SUMMARY | 2022-04-28 14:38 | XMS_ITS | Encounter Summary ---
:1950 Author Organization [facility] Address [address] [place] [address] Care Team Providers Name Role Phone Elsewhere, Pcp Primary Care Provider Unavailable Reason for Referral Outpatient (Routine) - Authorized Specialty Diagnoses / Procedures Referred By Contact Refer red To Contact Diagnoses Follow Up Examination Status Post Surgery Peripheral Arterial Disease (HCC) Jayjay Pak P.A.-C. [facility] Procedures US Aorta Iliac Arteries Bilateral with Doppler [address] [place] [address] Referral ID Status Reason Start Date Expiration Date Visits V isits Requested Authorized [id number] Authorized 02/23/2022 02/23/2023 1 1 Outpatient (Routine) - Authorized Specialty Diagnoses / Procedures Referred By Contact Refer red To Contact Diagnoses Follow Up Examination Status Post Surgery Peripheral Arterial Disease (HCC) Jayjay Pak P.A.-C. [facility] Procedures US Lower Extremity Artery Graft Bilateral [address] [place] [address] Referral ID Status Reason Start Date Expiration Date Visits V isits Requested Authorized [id number] Authorized 02/23/2022 02/23/2023 1 1 Outpatient (Routine) - Authorized Specialty Diagnoses / Procedures Referred By Contact Refer red To Contact Vascular Medicine [place], Jayjay Jackson Escobar P.A.-C. [address] [place], [place] [phone] Referral ID Status Reason Start Date Expiration Date Visits V isits Requested Authorized [id number] Authorized 02/23/2022 02/22/2025 1 1 Outpatient (Routine) - Authorized Specialty Diagnoses / Procedures Referred By Contact Refer red To Contact Diagnoses Follow Up Examination Status Post Surgery Peripheral Arterial Disease (HCC) Jayjay Pak P.A.-C. [facility] Procedures Lower Extremity Arterial (MIMI) - Exercise (Claudication) [address] [place], [place] [phone] Referral ID Status Reason Start Date Expiration Date Visits V isits Requested Authorized [id number] Authorized 02/23/2022 02/23/2023 1 1 Outpatient (Routine) - Authorized Specialty Diagnoses / Procedures Referred By Contact Refer red To Contact Diagnoses Follow Up Examination Status Post Surgery Peripheral Arterial Disease (HCC) Jayjay Pak P.A.-C. [facility] Procedures ECG 12 Lead [address] [place] [phone] Referral ID Status Reason Start Date Expiration Date Visits V isits Requested Authorized [id number] Authorized 02/23/2022 02/23/2023 1 1 Reason for Visit Outpatient (Routine) - Closed Specialty Diagnoses / Procedures Referred By Contact Refer red To Contact Vascular Medicine Jayjay Pak [place] [facility] P.A.-C. [address] [place], [place] [phone] Referral ID Status Reason Start Date Expiration Date Visits Requ ested Visits Authorized [id number] Closed 10/23/2021 10/23/2022 1 1 Encounter Details Date Type Department Care Team Description 02/23/2022 Office Visit Department of Vascular Jayjay Pak low Up Examination Status Post Surgery (Primary Dx); Medicine in [place], A, PFeiA.-C . Peripheral Arterial Disease (HCC) [place] [address] [facility] [address] [place] [phone] Social History Tobacco Use Types Packs/Day Years [...] How often do you attend sabianist or mormonism services? 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 as of this encounter Last [...] (Approximate), outpatients) Peripheral Expires: Arterial Disease 02/24/2024 ([facility]) US Aorta Iliac Imaging RAD - Routine Follow Up Expected: Arteries (most inpatients Examination Status 02/23 Bilateral with and all Post Surgery (Approximate), Doppler outpatients) Peripheral Expires: Arterial Disease 02/24/2024 ([facility]) Scheduled Referrals Name Type Priority Associated Diagnoses Order S [facility] Vascular Medicine Outpatient Referral Routine Exp [...] documented as of this encounter Care Teams Flash Welder Relationship Specialty Start Date End Date Elsewhere, Pcp PCP - General Family Medicine 01/29/20 documented as of this encounter
--- OUTSIDE RECORDS SUMMARY | 2022-04-28 14:38 | XMS_ITS | Encounter Summary ---
:1950 Author Organization [facility] Address [address] [place] [address] Care Team Providers Name Role Phone Elsewhere, Pcp Primary Care Provider Unavailable Reason for Visit Appointment Request (Routine) - Closed Specialty Diagnoses / Procedures Referred By Contact Refer red To Contact Nephrology and Hypertension Referral ID Status Reason Start Date Expiration Date Visits Requ ested Visits Authorized [id number] Closed 03/24/2022 03/24/2023 1 Encounter Details Date Type Department Care Team Description 04/06/2022 External Division of [place], Hypertension An d Chronic Kidney Disease Stage 4 (HCC) (Primary Dx); Outreach Nephrology and Haseeb Thomas Jr., 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 Anemia Of Chronic Renal Disease; [address] Hyperparathyroidism Secondary (HCC); [place], [place] Atherosclerosis Of [place] Ar teries Of Left Leg With Ulceration Of Unspecified Site (HCC); [address] [facility] [address] Depression Major Recurrent Moderate (HCC ) [place], [place] [phone] (Work) [phone] Social History Tobacco Use Types Packs/Day Years [...] How often do you attend religion or druze services? 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 - 04/06/2022 8:30 AM CST Referring Provider: ELSEWHERE, PCP SUBJECTIVE REASON FOR VISIT [facility] Follow-up regards CKD stage 4, with hypertension, diffuse and severe vascular disease and diabetes mellitus type 1 HISTORY OF PRESENT ILLNESS Mr. Walton is a 72 y.o. male who presents with CKD stage 4 on the above background. Since our last visit he is developed lower extremity swelling which become progressively more difficult to manage. He is taking 60 mg of furosemide daily. He is avoiding sodium, he is unable to elevatehis legs, and his peripheral neuropathy is quite challenging for him to use compressive garments. Hedid nonetheless agree that he could begin wearing some support socks. No peripheral ulcerations currently, no fevers no chills no constitutional complaints. He is doing his best to rationale his pain tablets, which are prescribed by his local primary care provider-oxycodone. He was in the emergency room with severe 10/10 back pain on March 17. No red flag issues or signs of infection/cord compromise were noted. Blood pressures have been excellent he is had no orthostatic issues. He checks his blood pressure athome irregularly unusually has blood pressure in the 100 systolic range. Now has a Dexcom and continuous glucose infusion pump, and his glycemic control has been excellent with hemoglobin A1c of 7.3%. His sugar dropped during our evaluation today, down to 59. He needed to take some extra glucose. His neuropathy is primarily a numbness issue, he is doing relatively well with this. 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 (Patient taking differently: Take 10 mg by mouth daily.), Disp: 90 tablet, Rfl: [address] tablet, Take 325 mg by mouth daily. Take in evening, Disp: , Rfl: atorvastatin (LIPITOR) 20 mg tablet, Take 1 tablet (20 mg total) by mouth at bedtime., Disp: 90 tablet, Rfl: 3 blood sugar diagnostic (Accu-Chek Guide test strips) strips, TEST 6 TIMES DAILY DIRECTED, Disp: , Rfl: calcium citrate (CALCITRATE) 950 mg (200 mg calcium) tablet, Take 4 tablets (800 mg of calcium total) by mouth at bedtime. Increased to 4 pills at bedtime, Disp: 300 tablet, Rfl: 3 carvediloL (COREG) 25 mg tablet, Take 2 tablets (50 mg total) by mouth 2 (two) times a day with meals., Disp: , Rfl: colchicine (COLCRYS) 0.6 mg tablet, Take 1 tablet (0.6 mg total) by mouth as directed. For gout flare, take one tab in the evenings until symptoms go away (usually 2-3 days), Disp: , Rfl: doxepin (SINEquan) 10 mg capsule, TAKE ONE CAPSULE BY MOUTH EVERY DAY AT BEDTIME, Disp: 90 capsule,Rfl: 3 DULoxetine (CYMBALTA) [address] capsule, Take 60 mg by mouth at bedtime. , Disp: , Rfl: ferrous sulfate 325 mg (65 mg iron) tablet, Take 27 mg by mouth daily. States taking 27 mg daily, Disp: , Rfl: furosemide (LASIX) 40 mg tablet, Take 1.5 tablets (60 mg total) by mouth 2 (two) times a day., Disp: 270 tablet, Rfl: 3 insulin aspart U-100 (NovoLOG Flexpen U-100 Insulin) 100 unit/mL (3 mL) injection, Inject 8-15 Units under the skin 3 (three) times a day with meals. (sometimes takes more than 3 times per day depending on what he is eating and activity). (Patient taking differently: Inject 10-25 Units under the skin3 (three) times a day with meals. (sometimes takes more than 3 times per day depending on what he iseating and activity).), Disp: , Rfl: insulin glargine (Basaglar KwikPen U-100 Insulin) 100 unit/mL (3 mL) injection, Inject 35 Units under the skin every evening. (Patient taking differently: Inject 40 Units under the skin every evening.), Disp: 15 mL, Rfl: lancets, 6 each daily., Disp: 600 each, Rfl: 3 lisinopriL (PRINIVIL,ZESTRIL) 40 mg tablet, Take 0.5 tablets (20 mg total) by mouth daily. Patient reports it was decreased by primary physician about 04/2020 per patient report., Disp: , Rfl: minocycline (MINOCIN,DYNACIN) 100 mg capsule, TAKE ONE CAPSULE BY MOUTH TWICE A DAY FOR 10 DAYS ANDTHEN TAKE ONE CAPSULE BY MOUTH EVERY DAY [facility], Disp: , Rfl: nortriptyline (PAMELOR) 50 mg capsule, Take 100 mg by mouth at bedtime. , Disp: , Rfl: 5 omeprazole (PriLOSEC) [address] capsule, Take 40 mg by mouth every evening. , Disp: , Rfl: oxyCODONE (ROXICODONE) 5 mg immediate release tablet, Take 5-10 mg by mouth every 6 (six) hours as needed. for pain, Disp: , Rfl: pen needle, diabetic 31 gauge x 5/16 needle, Inject 1 Injection under the skin daily. Inject 1 injection under the skin 4 times daily, Disp: 400 each, Rfl: 3 pramipexole (MIRAPEX) 0.5 mg tablet, Take 0.5 mg by mouth at bedtime., Disp: , Rfl: sodium bicarbonate 650 mg tablet, TAKE ONE TABLET BY MOUTH TWICE A DAY, Disp: 180 tablet, Rfl: 3 REVIEW OF SYSTEMS All other systems reviewed and are negative. OBJECTIVE BP 102/64 Pulse 78 Ht 175.2 cm Wt 85.8 kg BMI 27.95 kg/m?? PHYSICAL EXAMINATION General: Awake alert oriented, sallow complected HEENT: RJ, EOMI, Mucous membranes moist, no oral lesions Neck: No Masses, No Bruits Lungs: Clear to ascultation Heart: Regular Rate and Rhythm, No ectopy Murmurs or rubs Abdomen: Soft, Non-tender Extremities: No cyanosis, No clubbing: Warm lower extremities, he is missing the 3rd and 4th digits on his right foot, he has +1 pitting pedal, ankle, and distal lower extremity edema. Neuro: Cranial Nerves intact, Gait is antalgic, strength grossly normal Skin: no suspicious lesions identified Psychiatric: Normal affect DIAGNOSTICS Serum creatinine 3.4 mg/dL, microalbumin to creatinine ratio pending, hemoglobin A1c 7.3%, hemoglobin 10.9 grams/deciliter, normal chemistries otherwise ASSESSMENT / PLAN #1 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 (HCC) His goal blood pressures been achieved, his GFR is relatively stable compared with his summer creatinine levels checked in [place]. However over time there has been a subtle increase in his creatinine and roughly a 5 cc per year decrease in his GFR. We discussed his trajectory and that renal replacement modalities will need discussion coming up likely within the next 6 months. I anticipate that he may be a transplant candidate but given his diffuse and severe vascular disease he may be a challenging candidate from this perspective. We did not discuss dialysis modalities as of yet. Going forward: 1. Goal blood pressure less than 120/80-achieved 2. Goal glycosylated hemoglobin between 7 and 8%-achieved 3. No NSAIDs or Pal 2 inhibitors-done 4. We will increase his diuretic regimen slightly, in order to mitigate some of his lower extremity swelling. We will increase to 40 mg twice daily on his furosemide, with the approval to go to 60 mg twice daily as necessary if his lower extremities are quite swollen. 5. We will see him back in 6 months. 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 Site (HCC) Depression Major Recurrent Moderate (HCC) Albumin, Random, Urine Lab Routine Hypertension And C hronic Expected: 10/04/2022 Kidney Disease Stage 4 (Appr oximate), (HCC) Expires: 04/06/2023 Diabetes Mellitus Type 2 With Diabetic Nephropathy (HCC) Anemia Of Chronic Renal Disease Hyperparathyroidism Secondary (HCC) 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 Of Unspecified Site (HCC) Depression Major Recurrent Moderate (HCC) Renal Function Panel Lab Routine Hypertension And Chr onic Expected: 10/04/2022 Kidney Disease Stage 4 (Appr oximate), (HCC) Expires: 04/06/2023 Diabetes Mellitus Type 2 With Diabetic Nephropathy (HCC) Anemia Of Chronic Renal Disease Hyperparathyroidism Secondary (HCC) 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 Of Unspecified Site (HCC) Depression Major Recurrent Moderate (HCC) Urinalysis with Lab Routine Hypertension And Chronic Expected: 10/04/2022 Microscopic: Urine, Kidney Disease Stage 4 (Approximate), Voided (HCC) Expires: 04/06/2023 Diabetes Mellitus Type 2 With Diabetic Nephropathy (HCC) Anemia Of Chronic Renal Disease Hyperparathyroidism Secondary (HCC) 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 Of Unspecified Site (HCC) Depression Major Recurrent Moderate (HCC) Hemoglobin A1c Lab Routine Hypertension And Chronic E xpected: 10/04/2022 Kidney Disease Stage 4 (Appr oximate), (HCC) Expires: 04/06/2023 Diabetes Mellitus Type 2 With Diabetic Nephropathy (HCC) Anemia Of Chronic Renal Disease Hyperparathyroidism Secondary (HCC) 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 Of Unspecified Site (HCC) Depression Major Recurrent Moderate (HCC) Ferritin Lab Routine Hypertension And Chronic Exp ected: 10/04/2022 Kidney Disease Stage 4 (Appr oximate), (HCC) Expires: 04/06/2023 Diabetes Mellitus Type 2 With Diabetic Nephropathy (HCC) Anemia Of Chronic Renal Disease Hyperparathyroidism Secondary (HCC) 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 Of Unspecified Site (HCC) Depression Major Recurrent Moderate (HCC) Parathyroid Hormone Lab Routine Hypertension And Money Position Officer shubham Expected: 10/04/2022 (PTH) Kidney Disease Stage 4 (Appr oximate), (HCC) Expires: 04/06/2023 Diabetes Mellitus Type 2 With Diabetic Nephropathy (HCC) Anemia Of Chronic Renal Disease Hyperparathyroidism Secondary (HCC) 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 Of Unspecified Site (HCC) Depression Major Recurrent Moderate (HCC) Uric Acid Lab Routine Hypertension And Chronic Exp ected: 10/04/2022 Kidney Disease Stage 4 (Appr oximate), (HCC) Expires: 04/06/2023 Diabetes Mellitus Type 2 With Diabetic Nephropathy (HCC) Anemia Of Chronic Renal Disease Hyperparathyroidism Secondary (HCC) 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 Of Unspecified Site (HCC) Depression Major Recurrent Moderate (HCC) Iron and Total Lab Routine Hypertension And Chronic E xpected: 10/04/2022 Iron-Binding Capacity Kidney Disease Stag e 4 (Approximate), (HCC) Expires: 04/06/2023 Diabetes Mellitus Type 2 With Diabetic Nephropathy (HCC) Anemia Of Chronic Renal Disease Hyperparathyroidism Secondary (HCC) 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 Of Unspecified Site (HCC) Depression Major Recurrent Moderate (HCC) documented as of this encounter Visit Diagnoses Diagnosis 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 (HCC) - Primary Diabetes Mellitus Type 2 With Diabetic N ephropathy (HCC) Anemia Of Chronic Renal Disease Hyperparathyroidism Secondary (HCC) 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 Of Le ft Leg With Ulceration Of Unspecified Site (HCC) Depression Major Recurrent Moderate (HCC ) documented in this encounter Additional Health Concerns Assessment Noted Time PHQ-9 Depression Total Score: 3 01/03/2018 10:38 AM CD T documented as of this encounter Care Teams Landfill Gas Collection Operator Relationship Specialty Start Date End Date Elsewhere, Pcp PCP - General Family Medicine 01/29/20 documented as of this encounter
--- OUTSIDE RECORDS SUMMARY | 2022-04-28 14:38 | XMS_ITS | Encounter Summary ---
:1950 Author Organization [facility] Address [address] [place] [address] Care Team Providers Name Role Phone Elsewhere, Pcp Primary Care Provider Unavailable Encounter Details Date Type Department Care Team Description 11/04/2021 Hospital Department of [place], Hypertension And Chronic Kidney Disease Stage 1 To 4; Encounter Laboratory Hui E, Chronic Kidney Disease Stage 4 Glomerular Filtration Rate 15-29 (HCC); Medicine in [place]ENEER SUPERVISOR, C.N.P., Hyperparathyro idism Secondary (HCC); Kylah Phillips.N.P. Anemia Of Chron ic Renal Disease [address] [place] [address] Social History [...] How often do you attend episcopal or worship services? 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 HEAD OF QUALITY documented as of this encounter Medications at [...] daily. Take 1 tablet by 0 02/24/20 [id number] 27 mg mouth daily. iron- 1 mg [...] Phon e Number [facility]- [address] [place] [address] [place] [address] System in [place] [address] [facility] (ABNORMAL) Urinalysis with Microscopic: Urine, Midstream [...] 8.0 11/04/2021 9:43 AM CDT FB60 Specific [place] 1.015 1.001 - 1.035 11/04/2021 9:43 AM [...] Code Phon e Number [facility]- [facility] [place] [address] [facility] [address] [place] [address] System in [place] [address] documented in this encounter Visit Diagnoses Diagnosis Hypertension And Chronic Kidney Disease Stage 1 To 4 Chronic Kidney Disease Stage 4 Glomerula r Filtration Rate 15-29 (HCC) Hyperparathyroidism Secondary (HCC) Anemia Of Chronic Renal Disease documented in this encounter Additional Health Concerns Assessment Noted Time PHQ-9 Depression Total Score: 3 01/03/2018 10:38 AM CD T documented as of this encounter Care Teams Dressmaker Garment Fitter Relationship Specialty Start Date End Date Elsewhere, Pcp PCP - General Family Medicine 01/29/20 documented as of this encounter
--- OUTSIDE RECORDS SUMMARY | 2022-04-28 14:38 | XMS_ITS | Encounter Summary ---
:1950 Author Organization [facility] Address [address] [place] [address] Care Team Providers Name Role Phone Elsewhere, Pcp Primary Care Provider Unavailable Reason for Referral Outpatient (Routine) - Closed Specialty Diagnoses / Procedures Referred By Contact Refer red To Contact Diagnoses Follow Up Examination Status Post Surgery Jayjay Pak P.A.-C. [facility] Procedures Lower Extremity Arterial (MIMI) - Exercise (Claudication) [address] [place], [place] [address] Referral ID Status Reason Start Date Expiration Date Visits Requ ested Visits Authorized [id number] Closed 10/23/2021 10/23/2022 1 1 Reason for Visit Outpatient (Routine) - Closed Specialty Diagnoses / Procedures Referred By Contact Refer red To Contact Diagnoses Follow Up Examination Status Post Surgery Jayjay Pak P.A.-C. [facility] Procedures Lower Extremity Arterial (MIMI) - Exercise (Claudication) [address] [place], [place] [address] Referral ID Status Reason Start Date Expiration Date Visits Requ ested Visits Authorized [id number] Closed 10/23/2021 10/23/2022 1 1 Encounter Details Date Type Department Care Team Description 02/23/2022 Hospital Encounter Department of Jayjay Pak Arterial Disease (HCC) (Primary Dx); Vascular Medicine in [place] Escobar Follow Up Examination Status Post Surger y [place], [place] [address] [facility] [address] [place] [phone] Social History Tobacco Use Types Packs/Day Years [...] How often do you attend yarsani or advent services? 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
--- OUTSIDE RECORDS SUMMARY | 2022-04-28 14:38 | XMS_ITS | Encounter Summary ---
:1950 Author Organization [facility] Address [address] [place] [address] Care Team Providers Name Role Phone Elsewhere, Pcp Primary Care Provider Unavailable Reason for Visit Appointment Request (Routine) - Authorized Specialty Diagnoses / Procedures Referred By Contact Refer red To Contact Nephrology and Hypertension Referral ID Status Reason Start Date Expiration Date Visits V isits Requested Authorized [id number] Authorized 03/03/2022 03/03/2023 1 Encounter Details Date Type Department Care Team Description 03/23/2022 External Outreach Division of Nephrology Yang Menon No Show and Hypertension in [place], [place] [address] [facility] [address] [place] [phone] [phone] (Wo rk) Social History Tobacco Use Types [...] How often do you attend pentecostal or druze services? 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
--- OUTSIDE RECORDS SUMMARY | 2022-04-28 14:38 | XMS_ITS | Encounter Summary ---
:1950 Author Organization [facility] Address [address] [place] [address] Care Team Providers Name Role Phone Elsewhere, Pcp Primary Care Provider Unavailable Reason for Visit Reason Comments Med Refill Encounter Details Date Type Department Care Team Description 04/26/2022 Refill Division of Nephrology and Lewis, Shasha Reddy APRN, Med Refill Hypertension in [facility].N.P ., M.S. [place] [address] [facility] [address] [place] [address] [place] [address] [phone] Social History Tobacco Use Types Packs/Day Years [...] How often do you attend adventist or congregational services? 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
--- OUTSIDE RECORDS SUMMARY | 2022-04-28 14:38 | XMS_ITS | Encounter Summary ---
:1950 Author Organization [facility] Address [address] [place] [address] Care Team Providers Name Role Phone Elsewhere, Pcp Primary Care Provider Unavailable Encounter Details Date Type Department Care Team Description 11/04/2021 Hospital Department of [place], Hypertension And Chronic Kidney Disease Stage 1 To 4; Encounter Laboratory Hui E, Chronic Kidney Disease Stage 4 Glomerular Filtration Rate 15-29 (HCC); Medicine in DELINQUENT ACCOUNT CLERK, C.N.P., Hyperparathyro idism Secondary (HCC); Kylah Phillips.N.P. Anemia Of Chron ic Renal Disease [address] [place] [address] Social History Tobacco [...] How often do you attend congregation or nondenominational services? 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 Take 1 tablet by 0 02/24/20 [id number] 27 mg mouth daily. iron- 1 mg [...] Code Phon e Number [facility]- [address] [place] [address] [place] [address] [facility] [address] (ABNORMAL) [...] Laterality Blood (Blood, 11/04/2021 9:07 AM 11/06/19 Venous) CDT 11:38 AM CDT Hui Delgado APRN, C.N.P., D.N.P. LAB BLOOD AD D-ON Performing Organization Address City/State/ZIP Code Phon e Number [facility] - [address] [place], [place] [address] [facility] [place] [address] Laboratories-[facility] [address] (ABNORMAL) Parathyroid Hormone (PTH) (11/04/2021 9:07 AM [...] CDT PM CDT Hui Delgado APRN, C.N.P., Marni LAB BLOOD AD D-ON Performing Organization Address City/State/ZIP Code Phon e Number [facility]- [address] [place] [address] [place] [address] [facility] [address] (ABNORMAL) [...] eGFR-Black/Afri 20 (L) >=60 11/04/2021 OWAT can [place] mL/min/BSA 11:43 AM CDT Comment: ----ADDITIONAL INFORMATION---- Estimated GFR calculated using the 2009 CKD_EPI creatinine equation. eGFR Non-Black/ 17 (L) >=60 mL/min/BSA 11/04/2021 11:43 AM CDT OW[place] Comment: ----ADDITIONAL INFORMATION---- Estimated GFR calculated using [...] 11/05/19 4:39 Venous) CDT PM CDT Narrative [facility] - 11/04/2021 5:09 PM CDT Specimen Information: Specimen ID: [id number] Specimen Type: Blood Specimen Collection Start Date: 11/05/19 ??9:07 AM Specimen Received Date: 11/04/2021 ??4:3 9 PM Specimen ID: [id number] Specimen Type: Blood Specimen Collection Start Date: 11/05/19 ??9:07 AM Specimen Received Date: 11/04/2021 11:03 AM Hui Delgado APRN, C.N.P., D.N.P. LAB BLOOD AD D-ON Performing Organization Address City/State/ZIP Code Phon e Number [facility]- [address] [place] [address] [place] [address] System in [place] [address] [facility] [place] [address] [facility] [address] (ABNORMAL) CBC without Differential (11/04/2021 9:07 AM CDT) [facility] gist Method Time Signature Hemoglobin 11.5 (L) [...] Organization Address City/State/ZIP Code Phon e Number [address] [place], [place] [phone] [place] [address] LAB FB60 [place] [address] [address] documented in this encounter Visit [...] documented as of this encounter Care Teams Order Expediter Relationship Specialty Start Date End Date Elsewhere, Pcp PCP - General Family Medicine 01/29/20 documented as of this encounter
--- OUTSIDE RECORDS SUMMARY | 2022-04-28 14:38 | XMS_ITS | Encounter Summary ---
:1950 Author Organization [facility] Address [address] [place] [address] Care Team Providers Name Role Phone Elsewhere, Pcp Primary Care Provider Unavailable Reason for Referral Outpatient (Routine) - Closed Specialty Diagnoses / Procedures Referred By Contact Refer red To Contact Diagnoses Follow Up Examination Status Post Surgery Jayjay Pak P.A.-C. [facility] Procedures US Aorta Iliac Arteries Bilateral with Doppler [address] [place] [phone] Referral ID Status Reason Start Date Expiration Date Visits Requ ested Visits Authorized [id number] Closed 10/23/2021 10/23/2022 1 1 Reason for Visit Outpatient (Routine) - Closed Specialty Diagnoses / Procedures Referred By Contact Refer red To Contact Diagnoses Follow Up Examination Status Post Surgery Jayjay Pak P.A.-C. [facility] Procedures US Aorta Iliac Arteries Bilateral with Doppler [address] [place] [phone] Referral ID Status Reason Start Date Expiration Date Visits Requ ested Visits Authorized [id number] Closed 10/23/2021 10/23/2022 1 1 Encounter Details Date Type Department Care Team Description 02/23/2022 Hospital Encounter Department of Jayjay Pak Follow Up Examination Radiology, Santiago Escobar P.A.-C. Status Post Surgery [facility], in [address] [place], [place] [address] [place] [phone] [place], [place] [phone] (Work) [phone] Social History Tobacco Use Types Packs/Day Years [...] How often do you attend confucianist or hindu services? 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
--- OUTSIDE RECORDS SUMMARY | 2022-04-28 14:38 | XMS_ITS | Encounter Summary ---
:[address] [facility] Address [address] [place] [address] Care Team Providers Name Role Phone Elsewhere, Pcp Primary Care Provider Unavailable Reason for Referral Transplant (Routine) - Authorized Specialty Diagnoses / Procedures Referred By Contact Refer red To Contact Transplant Diagnoses Chronic Kidney Disease Stage 4 Glomerular Filtration Rate 15-29 (HCC) Farrah Barnes Lahaina Demetri Brock, Ph.D. [address] [place], [place] [phone] Referral ID Status Reason Start Date Expiration Date Visits V isits Requested Authorized [id number] Authorized 12/08/2021 12/08/2022 1 1 Reason for Visit Appointment Request (Routine) - Closed Specialty Diagnoses / Procedures Referred By Contact Refer red To Contact Nephrology and Hypertension Referral ID Status Reason Start Date Expiration Date Visits Requ ested Visits Authorized [id number] Closed 11/20/2021 11/20/2022 1 Encounter Details Date Type Department Care Team Description 12/08/2021 External Outreach Division of Rod Barnes Kidney Disease Stage 4 Glomerular Filtration Rate 15-29 (HCC) (Primary Dx); Nephrology and Delmy Yan, Hypertension Essential Primary; Hypertension in Ph.D. Hyperkalemia; [place], [place] [address] [facility] Acidosis Metabolic Hyperchloremic; [address] [place], [place] [phone] Social History Tobacco Use Types Packs/Day Years [...] How often do you attend orthodox or baptist services? 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 - 12/08/2021 10:00 AM CDT PROGRESS NOTE OUTREACH [place] SUBJECTIVE CHIEF COMPLAINT / REASON FOR VISIT [...] 11/14 (clinic) Glomerular (Approximate), Filtration Rate Expires: 15 ([facility]) 03/10/2023 documented as of this encounter Visit Diagnoses Diagnosis Chronic Kidney Disease Stage 4 Glomerula r Filtration Rate 15-29 (HCC) - Primary Hypertension Essential Primary Hyperkalemia Acidosis Metabolic Hyperchloremic Excess Fluid Volume documented in this encounter Additional Health Concerns Assessment Noted Time PHQ-9 Depression Total Score: 3 01/03/2018 10:38 AM CD T documented as of this encounter Care Teams Invoice Coder Relationship Specialty Start Date End Date Elsewhere, Pcp PCP - General Family Medicine 01/29/20 documented as of this encounter
--- OUTSIDE RECORDS SUMMARY | 2022-04-28 14:38 | XMS_ITS | Encounter Summary ---
:1950 Author Organization [facility] Address [address] [place] [address] Care Team Providers Name Role Phone Elsewhere, Pcp Primary Care Provider Unavailable Reason for Referral Outpatient (Routine) - Closed Specialty Diagnoses / Procedures Referred By Contact Refer red To Contact Diagnoses Follow Up Examination Status Post Surgery Jayjay Pak P.A.-C. [facility] Procedures US Lower Extremity Arteries Bilateral US Lower Extremity Artery Graft Bilateral [address] [place], [place] [phone] Referral ID Status Reason Start Date Expiration Date Visits Requ ested Visits Authorized [id number] Closed 10/23/2021 10/23/2022 1 1 Outpatient (Routine) - Closed Specialty Diagnoses / Procedures Referred By Contact Refer red To Contact Diagnoses Follow Up Examination Status Post Surgery Jayjay Pak P.A.-C. [facility] Procedures US Aorta Iliac Arteries Bilateral with Doppler [address] [place], [place] [address] Referral ID Status Reason Start Date Expiration Date Visits Requ ested Visits Authorized [id number] Closed 10/23/2021 10/23/2022 1 1 Outpatient (Routine) - Closed Specialty Diagnoses / Procedures Referred By Contact Refer red To Contact Vascular Medicine Jayjay Pak, [facility] alan Ervin [address] [place], [place] [phone] Referral ID Status Reason Start Date Expiration Date Visits Requ ested Visits Authorized [id number] Closed 10/23/2021 10/23/2022 1 1 Outpatient (Routine) - Closed Specialty Diagnoses / Procedures Referred By Contact Refer red To Contact Diagnoses Follow Up Examination Status Post Surgery Jayjay Pak P.A.-C. [facility] Procedures Lower Extremity Arterial (MIMI) - Exercise (Claudication) [address] [place], [place] [address] Referral ID Status Reason Start Date Expiration Date Visits Requ ested Visits Authorized [id number] Closed 10/23/2021 10/23/2022 1 1 Outpatient (Routine) - Closed Specialty Diagnoses / Procedures Referred By Contact Refer red To Contact Diagnoses Follow Up Examination Status Post Surgery Jayjay Pak P.A.-C. [facility] Procedures ECG 12 Lead [address] [place] [phone] Referral ID Status Reason Start Date Expiration Date Visits Requ ested Visits Authorized [id number] Closed 10/23/2021 10/23/2022 1 1 Encounter Details Date Type Department Care Team Description 10/23/2021 Orders Only Department of Vascular Jayjay Pak [facility] Medicine in [facility] Elver Escobar Status Post Surgery [place] [address] [place] [address] (Primary Dx) [address] [place], [place] [phone] Social History Tobacco Use Types Packs/Day Years [...] How often do you attend hinduism or methodist services? 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 documented as of this encounter Plan of Treatment Scheduled Referrals Name Type Priority Associated Diagnoses Order [facility] Vascular Medicine Outpatient Referral Routine Exp [...] Signature Ventricular Rate 78 BPM MUSE ECG/Min ND Interval 160 ms MUSE QRSD Interval 144 ms MUSE QT Interval 424 ms MUSE QTC Interval 483 ms MUSE P [place] 69 degrees MUSE R Oak[place] -4 degrees MUSE T Wave [place] 20 degrees MUSE Specimen Anatomical Collection Method [...] documented as of this encounter Care Teams Division Chief Relationship Specialty Start Date End Date Elsewhere, Pcp PCP - General Family Medicine 01/29/20 documented as of this encounter
--- OUTSIDE RECORDS SUMMARY | 2022-04-28 14:39 | XMS_ITS | Encounter Summary ---
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 documented as of this encounter Medications [...] to 4 pills at bedtime furosemide (LASIX) 20 mg Take 1 tablet [...] Albumin, Random, Urine (08/24/2021 8:46 AM CDT) Patholo gist Method Time Signature Microalbumin 1117.0 mg/L [...] Organization Address City/State/ZIP Code Phon e Number [facility]- [address] [place] [address] [place] [address] System in [place] [address] (ABNORMAL) Urinalysis with [...] 8.0 08/24/2021 9:06 AM CDT FB60 Specific [place] 1.020 1.001 - 1.035 08/24/2021 9:06 AM [...] Address City/State/ZIP Code Phon e Number [address] [place], [place] [phone] [place] [address] LAB FB60 [place] [address] System in [address] documented in this encounter Visit [...] documented as of this encounter Care Teams Plant Safety Engineer Relationship Specialty Start Date End Date Elsewhere, Pcp PCP - General Family Medicine 01/29/20 documented as of this encounter
--- OUTSIDE RECORDS SUMMARY | 2022-04-28 14:39 | XMS_ITS | Encounter Summary ---
:1950 Author Organization [facility] Address [address] [place] [address] Care Team Providers Name Role Phone Elsewhere, Pcp Primary Care Provider Unavailable Encounter Details Date Type Department Care Team Description 06/01/2021 Orders Only Division of Nephrology Wellalfredoitter, Janel rtensive Chronic and Hypertension, Hui Reddy APRN, Kidney D [facility] ([facility]D) [facility], in C.N.P., D.N.P. Stage 3b Glomerular [place], [place] Filtration Rate (GFR) [address] [facility] 30 To 44 (HCC) (Primary [place], [place] Dx) [phone] Social History Tobacco Use Types Packs/Day Years [...] How often do you attend denominational or temple services? 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 LAB BLOOD AD D-ON Performing Organization Address City/State/ZIP Code Phon e Number [facility]- [address] [place] [address] [place] [address] System in [place] [address] documented in this encounter Visit Diagnoses Diagnosis Hypertensive Chronic Kidney Disease (CKD ) Stage 3b Glomerular Filtration Rate (GFR) 30 To 44 (HCC) - Primary documented in this encounter Additional Health Concerns Assessment Noted Time PHQ-9 Depression Total Score: 3 01/03/2018 10:38 AM CD T documented as of this encounter Care Teams Tractor Trailer Mechanic Relationship Specialty Start Date End Date Elsewhere, Pcp PCP - General Family Medicine 01/29/20 documented as of this encounter
--- OUTSIDE RECORDS SUMMARY | 2022-04-28 14:39 | XMS_ITS | Encounter Summary ---
:1950 Author Organization [facility] Address [address] [place] [address] Care Team Providers Name Role Phone Elsewhere, Pcp Primary Care Provider Unavailable Encounter Details Date Type Department Care Team Description 06/15/2021 Hospital Encounter Department of 591wed, IPWirelesse nsive Chronic Laboratory Medicine Hui Reddy APRN, Kidney Disease (CKD) in Phillips, JenniferNChucho, D.N.PFei Stage 3b [place] merular [place] Filtration Rate (GFR) [address] 30 To 44 (HCC) [place] [phone] Social History Tobacco Use Types Packs/Day Years [...] How often do you attend anabaptism or congregational services? 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 CULTURAL WORKER SUPERVISOR documented in this encounter Plan of Treatment Not on filedocumented as of this encounter Procedures Procedure Name Priority Date/Time Associated Diagnosis Comme nts CALCIUM, TOT, S/P Routine 06/15/2021 2:17 PM Hypertensive Saw Straightener shubham Results for this AQUACULTURAL WORKER SUPERVISOR Kidney Disease (CKD) procedu re are in Stage 3b Glomerular the resu lts Filtration Rate (GFR) sectio n. 30 To 44 (HCC) documented in this encounter Results (ABNORMAL) Calcium, Total (06/15/2021 2:17 PM AQUACULTURAL WORKER SUPERVISOR) P athologist Signature Calcium, 7.5 (L) 8.8 - 10.2 06/15/2021 OWAT Total, P mg/dL 3:52 PM AQUACULTURAL WORKER SUPERVISOR Specimen Anatomical Collection Method Collection Time Receive d Time (Source) Location / / Volume Laterality Blood (Blood, 06/15/2021 2:17 PM 06/15/19 22 3:39 Venous) AQUACULTURAL WORKER SUPERVISOR PM AQUACULTURAL WORKER SUPERVISOR Hui Delgado APRN C.N.P., D.N.P. LAB BLOOD AD D-ON Performing Organization Address City/State/ZIP Code Phon e Number [facility]- [address] [place] [address] [place] [address] System in [place] [address] documented in this encounter Visit Diagnoses Diagnosis Hypertensive Chronic Kidney Disease (CKD ) Stage 3b Glomerular Filtration Rate (GFR) 30 To 44 (HCC) documented in this encounter Additional Health Concerns Assessment Noted Time PHQ-9 Depression Total Score: 3 01/03/2018 10:38 AM CD T documented as of this encounter Care Teams Commercial Real Estate Appraiser Relationship Specialty Start Date End Date Elsewhere, Pcp PCP - General Family Medicine 01/29/20 documented as of this encounter
--- OUTSIDE RECORDS SUMMARY | 2022-04-28 14:39 | XMS_ITS | Encounter Summary ---
:1950 Author Organization [facility] Address [address] [place] [address] Care Team Providers Name Role Phone Elsewhere, Pcp Primary Care Provider Unavailable Reason for Referral Outpatient (Routine) - Closed Specialty Diagnoses / Procedures Referred By Contact Refer red To Contact Nephrology and Diagnoses Hypertension And Chronic Kidney Disease Stage 1 To 4 Hui Delgado [facility] Hypertension Maureen, JULIÁN C.N.P., D.N.P. 200 [place] [address] Referral ID Status Reason Start Date Expiration Date Visits Requ ested Visits Authorized [id number] Closed 09/11/2021 09/11/2022 1 1 Scheduling Instructions Check weight, fluid status, bp and bp mo nitor check Encounter Details Date Type Department Care Team Description 09/11/2021 Orders Only Division of Nephrology Toya Wu ypertension And and Hypertension in I., R.N. Chronic Kidney Disease [place], [place] [address] [place] [address] Stage 1 To 4 (Primary [address] [place] [address] Dx) [place] [address] [phone] Social History Tobacco Use Types Packs/Day Years [...] How often do you attend temple or spiritism services? 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 eGFR Non-Black/ 19 (L) >=60 mL/min/BSA 09/24/2021 1:05 PM CDT OWAT [place] Comment: ----ADDITIONAL INFORMATION---- Estimated GFR calculated using [...] 09/25/19 Venous) CDT 10:33 AM CDT Narrative [facility] - 09/24/2021 4:22 PM CDT Specimen Information: Specimen ID: [id number] Specimen Type: Blood Specimen Collection Start Date: 09/25/19 ??8:59 AM Specimen Received Date: 09/24/2021 10:33 AM Specimen ID: [id number] Specimen Type: Blood Specimen Collection Start Date: 09/25/19 ??8:59 AM Specimen Received Date: 09/24/2021 ??3:3 1 PM Hui Delgado APRN C.N.P., D.N.P. LAB BLOOD AD D-ON Performing Organization Address City/State/ZIP Code Phon e Number [facility]- [address] [place] [address] [place] [address] System in [place] [address] [facility] [place] [address] [facility] [address] documented in this encounter Visit Diagnoses Diagnosis Hypertension And Chronic Kidney Disease Stage 1 To 4 - Primary Hypertension And Chronic Kidney Disease Stage 1 To 4 documented in this encounter Additional Health Concerns Assessment Noted Time PHQ-9 Depression Total Score: 3 01/03/2018 10:38 AM CD T documented as of this encounter Care Teams Securities Attorney Relationship Specialty Start Date End Date Elsewhere, Pcp PCP - General Family Medicine 01/29/20 documented as of this encounter
--- OUTSIDE RECORDS SUMMARY | 2022-04-28 14:39 | XMS_ITS | Encounter Summary ---
:1950 Author Organization [facility] Address [address] [place] [address] Care Team Providers Name Role Phone Elsewhere, Pcp Primary Care Provider Unavailable Encounter Details Date Type Department Care Team Description 09/24/2021 Hospital Encounter Department of ESP Systems, Biofuelbox And Laboratory Medicine Hui Reddy APRN, Chroni c Kidney in [place], C.N.P., D.N.P. Disease Stag e 1 To [address] [place] [phone] Social History Tobacco Use Types Packs/Day Years [...] How often do you attend denominational or roman catholic services? 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 eGFR Non-Black/ 19 (L) >=60 mL/min/BSA 09/24/2021 1:05 PM CDT OWAT [place] Comment: ----ADDITIONAL INFORMATION---- Estimated GFR calculated using [...] Volume Laterality Blood (Blood, 09/24/2021 8:59 AM 05/12/20 22 Venous) CDT 10:33 AM CDT Narrative [facility] - 09/24/2021 4:22 PM CDT Specimen Information: Specimen ID: [id number] Specimen Type: Blood Specimen Collection Start Date: 09/25/19 ??8:59 AM Specimen Received Date: 09/24/2021 10:33 AM Specimen ID: [id number] Specimen Type: Blood Specimen Collection Start Date: 09/25/19 ??8:59 AM Specimen Received Date: 09/24/2021 ??3:3 1 PM Hui Delgado APRN, C.N.P., D.N.P. LAB BLOOD AD D-ON Performing Organization Address City/State/ZIP Code Phon e Number [facility]- [address] [place], [place] [phone] [place] [address] [place] [address] System in [place] [address] [facility] [place], [place] [id number] [place] [address] documented in this encounter Visit Diagnoses Diagnosis Hypertension And Chronic Kidney Disease Stage 1 To 4 documented in this encounter Additional Health Concerns Assessment Noted Time PHQ-9 Depression Total Score: 3 01/03/2018 10:38 AM CD T documented as of this encounter Care Teams Keg Varnisher Relationship Specialty Start Date End Date Elsewhere, Pcp PCP - General Family Medicine 01/29/20 documented as of this encounter
--- OUTSIDE RECORDS SUMMARY | 2022-04-28 14:39 | XMS_ITS | Encounter Summary ---
:1950 Author Organization [facility] Address [address] [place] [address] Care Team Providers Name Role Phone Elsewhere, Pcp Primary Care Provider Unavailable Reason for Visit Reason Comments Med Refill Encounter Details Date Type Department Care Team Description 05/28/2021 Refill Department of Sleep Medicine in Yessy Cohen M.D., Med Refill [place], [place] [facility] [address] [place] [address] [place] [phone] (Wo rk) Social History Tobacco Use Types [...] How often do you attend mu-ism or church services? 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
--- OUTSIDE RECORDS SUMMARY | 2022-04-28 14:39 | XMS_ITS | Encounter Summary ---
:1950 Author Organization [facility] Address [address] [place] [address] Care Team Providers Name Role Phone Elsewhere, Pcp Primary Care Provider Unavailable Reason for Visit Reason Comments Labs Only Encounter Details Date Type Department Care Team Description 06/16/2021 Clinical Communication Division of Nephrology Edie Aguilar, Labs Only and Hypertension in [place], [place] [address] [facility] [address] [place] [phone] Social History Tobacco Use Types Packs/Day Years [...] How often do you attend muslim or gnosticism services? 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 Disposition/Recommendation: I will review with the TURBINE ASSEMBLER team when he should repeat labs next. I asked him to contact us if he does develop symptoms of a low calcium. Information/Education: patient/caller able to teach back Caller agreeable to plan of care: yes Addendum: patient informed to continue 4 tabs of calcium citrate and repeat labs with his next CKD follow up with Hui Delgado CNP. ONWEALTH ATTORNEY Telephone Encounter - Edie Aguilar R.N. - 06/16/2021 1:17 PM CST ----- Message from Susana Saucedo APRN, C.N.P., M.S. sent at 06/15/2021 4:46 PM COMMONWEALTH ATTORNEY ----- Please call patient to confirm that he is indeed taking calcium citrate 2 tablets every night at bedtime (on empty stomach). If he is taking the calcium without fail, okay to increase to 4 tablets at HS, otherwise okay to continue 2 tablets and recheck with follow up. Please review s/s of hypocalcemia and ask him to let us know if s/s. ONWEALTH ATTORNEY documented in this encounter Plan of Treatment Not on filedocumented as of this encounter Visit Diagnoses Not on filedocumented in this encounter Additional Health Concerns Assessment Noted Time PHQ-9 Depression Total Score: 3 01/03/2018 10:38 AM CD T documented as of this encounter Care Teams Utilities Service Investigator Relationship Specialty Start Date End Date Elsewhere, Pcp PCP - General Family Medicine 01/29/20 documented as of this encounter
--- OUTSIDE RECORDS SUMMARY | 2022-04-28 14:39 | XMS_ITS | Encounter Summary ---
:[address] [facility] Address [address] [place] [address] Care Team Providers Name Role Phone Elsewhere, Pcp Primary Care Provider Unavailable Reason for Visit Reason Comments lab results and patient update Encounter Details Date Type Department Care Team Description 09/08/2021 Clinical Communication Division of sarah Arthur and Nephrology and Mallika Narayanan R.N. patient update Hypertension in [address] [place] [address] [address] [facility] [phone] Social History Tobacco Use Types Packs/Day Years [...] How often do you attend pentecostal or judaism services? 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 Telephone Encounter - Mallika Artuhr R.N. - 09/08/2021 2:07 PM CDT ----- [...] ----- Message ----- From: Cameron Ardon In [facility] 2 [id number] Sent: 09/08/2021 1:45 PM CDT To: Hui Delgado APRN, C.N.Xi, D.N.P. documented in this encounter Plan of Treatment Not on filedocumented as of this encounter Visit Diagnoses Not on filedocumented in this encounter Additional Health Concerns Assessment Noted Time PHQ-9 Depression Total Score: 3 01/03/2018 10:38 AM CD T documented as of this encounter Care Teams Wood Barrel Reconditioner Relationship Specialty Start Date End Date Elsewhere, Pcp PCP - General Family Medicine 01/29/20 documented as of this encounter
--- OUTSIDE RECORDS SUMMARY | 2022-04-28 14:39 | XMS_ITS | Encounter Summary ---
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 15- (HCC) CALCIUM, TOT, S/P Routine 05/28/2021 2:27 PM Chronic Kidney Re sults for this NUISANCE WILDLIFE SPECIALIST Disease Stage 4 procedure ar e in Glomerular the results Filtration Rate section. (HCC) documented in this encounter Results (ABNORMAL) Calcium, Ionized (05/28/2021 2:27 PM NUISANCE WILDLIFE SPECIALIST) athologist Signature Calcium, 4.13 (L) 4.57 - 05/29/2021 DTL Ionized, S 5.43 mg/dL 7:46 AM NUISANCE WILDLIFE SPECIALIST Comment: ----ADDITIONAL INFORMATION---- This test has been modified from the man ufacturer's instructions. Its performance characteri stics were determined by [facility] in a manner co nsistent with CLIA requirements. This test has not bee n cleared or approved by the U.S. Food and Drug Admin istration. pH for Ionized Calcium 7.30 (L) 7.35 - 7.48 05/29/2021 7:46 AM NUISANCE WILDLIFE SPECIALIST DTL Specimen Anatomical Collection Method Collection Time Receive d Time (Source) Location / / Volume Laterality Blood (Blood, 05/28/2021 2:27 PM 05/29/19 7:24 Venous) NUISANCE WILDLIFE SPECIALIST AM NUISANCE WILDLIFE SPECIALIST Hui Delgado APRN, C.N.P., D.N.P. LAB BLOOD NO N ADD-ON Performing Organization Address City/State/ZIP Code Phon e Number [facility] - [address] [place], [place] [address] [facility] [place] [address] Laboratories-[facility] [address] (ABNORMAL) Calcium, Total (05/28/2021 2:27 PM NUISANCE WILDLIFE SPECIALIST) athologist Signature Calcium, 7.6 (L) 8.8 - 10.2 05/28/2021 [place] Total, P mg/dL 4:12 PM NUISANCE WILDLIFE SPECIALIST Specimen Anatomical Collection Method Collection Time Receive d Time (Source) Location / / Volume Laterality Blood (Blood, 05/28/2021 2:27 PM 05/28/19 22 3:44 Venous) NUISANCE WILDLIFE SPECIALIST PM NUISANCE WILDLIFE SPECIALIST Hui Delgado APRN, C.N.P., D.N.P. LAB BLOOD AD D-ON Performing Organization Address City/State/ZIP Code Phon e Number [facility]- [address] [place] [address] [place] [address] System in [employer] [address] 1,25-Dihydroxyvitamin D (05/28/2021 2:27 PM NUISANCE WILDLIFE SPECIALIST) [facility] Method Time Signature 1, 25 18 - 64 06/02/2021 [facility] DIHYDROXYVITAMIN D, pg/mL 10:50 AM NUISANCE WILDLIFE SPECIALIST S Comment: ----ADDITIONAL INFORMATION---- This test was [...] 05/28/2021 2:27 PM 05/29/19 22 7:41 Venous) NUISANCE WILDLIFE SPECIALIST AM NUISANCE WILDLIFE SPECIALIST Hui Maureen Delgado APRN, C.N.P., D.N.P. LAB BLOOD AD D-ON Performing Organization Address City/State/ZIP Code Phon e Number [facility] [address] [place] [address] [facility] [place] [address] Laboratory Medicine and Pathology [address] [place] 25-Hydroxyvitamin D2 and D3 (05/28/2021 2:27 PM NUISANCE WILDLIFE SPECIALIST) P athologist Signature 25-Hydroxy D2 28 ng/mL 05/30/2021 SDS 11:19 AM NUISANCE WILDLIFE SPECIALIST 25-Hydroxy D3 4.3 ng/mL 05/30/2021 SDSC 11:19 AM NUISANCE WILDLIFE SPECIALIST 25-Hydroxy D 32 ng/mL 05/30/2021 SDS Total 11:19 AM NUISANCE WILDLIFE SPECIALIST Comment: ----REFERENCE VALUE---- 25-HYDROXY D TOTAL (D2+D3) [...] (Blood, 05/28/2021 2:27 PM 05/29/19 7:17 Venous) NUISANCE WILDLIFE SPECIALIST AM NUISANCE WILDLIFE SPECIALIST Hui Delgado APRN C.N.P., D.N.P. LAB BLOOD AD D-ON Performing Organization Address City/State/ZIP Code Phon e Number [facility] [address] [place], [place] [address] SUPPORT [facility] [place] [address] Laboratory Medicine and Pathology [address] [...] documented as of this encounter Care Teams Core Cutter And Reamer Relationship Specialty Start Date End Date Elsewhere, Pcp PCP - General Family Medicine 01/29/20 documented as of this encounter
--- OUTSIDE RECORDS SUMMARY | 2022-04-28 14:39 | XMS_ITS | Encounter Summary ---
:1950 Author Organization [facility] Address [address] [place] [address] Care Team Providers Name Role Phone Elsewhere, Pcp Primary Care Provider Unavailable Reason for Visit Reason Comments Chronic Kidney Disease And hypertension Outpatient (Routine) - Closed Specialty Diagnoses / Procedures Referred By Contact Refer red To Contact Nephrology and Diagnoses Hypertension And Chronic Kidney Disease Stage 1 To [facility] JULIÁN Reddy, C.N.P., D.N.P. [address] [place] [address] Referral ID Status Reason Start Date Expiration Date Visits Requ ested Visits Authorized [id number] Closed 09/11/2021 09/11/2022 1 1 Encounter Details Date Type Department Care Team Description 09/28/2021 Nurse Only Division of Nephrology [facility] JULIÁN Reddy, C.N.P., D.N.P. Chronic Kidney Disease and Hypertension in [facility] Abbey Oracio, R.NFei [address] [place] [phone] (And hypertension) [place], [place] [address] [place] [phone] Social History Tobacco Use Types Packs/Day [...] How often do you attend orthodoxy or quaker services? Never 03/25/2021 Do you [...] at Date Recorded Male 03/24/2021 8:13 PM CARDIOLOGY NURSE documented as of this encounter Last [...] documented as of this encounter Care Teams Ball Point Splitter Relationship Specialty Start Date End Date Elsewhere, Pcp PCP - General Family Medicine 01/29/20 documented as of this encounter
--- OUTSIDE RECORDS SUMMARY | 2022-04-28 14:39 | XMS_ITS | Encounter Summary ---
:1950 Author Organization [facility] Address [address] [place] [address] Care Team Providers Name Role Phone Elsewhere, Pcp Primary Care Provider Unavailable Reason for Visit Reason Comments Med Refill Encounter Details Date Type Department Care Team Description 09/15/2021 Refill Department of Family Medicine, Bambi Adler Med Refill [facility], in Renee Phillips M.D. [place] [address] [place] [address] [place] [address] [phone] Social History Tobacco Use Types Packs/Day Years [...] How often do you attend zoroastrian or confucianism services? Never 03/25/2021 Do you [...] at Date Recorded Male 03/24/2021 8:13 PM SHARED SERVICES REPRESENTATIVE documented as of this encounter Miscellaneous Notes [...] documented as of this encounter Care Teams Off Premise Service Representative Relationship Specialty Start Date End Date Elsewhere, Pcp PCP - General Family Medicine 01/29/20 documented as of this encounter
--- OUTSIDE RECORDS SUMMARY | 2022-04-28 14:39 | XMS_ITS | Encounter Summary ---
:[address] [facility] Address [address] [place] [address] Care Team Providers Name Role Phone Elsewhere, Pcp Primary Care Provider Unavailable Reason for Visit Appointment Request (Routine) - Closed Specialty Diagnoses / Procedures Referred By Contact Refer red To Contact Nephrology and Hypertension Referral ID Status Reason Start Date Expiration Date Visits Requ ested Visits Authorized [id number] Closed 05/22/2021 05/22/2022 1 1 Encounter Details Date Type Department Care Team Description 05/27/2021 External Division of [place] Chronic Kidney Disease Stage 4 Glomerular Filtration Rate 15-29 (HCC) (Primary Dx); Outreach Nephrology and , Hui Reddy, Anemia Of Chr onic Renal Disease; Hypertension in 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 Diabetes Mellitus Type 2 Wit h Diabetic Nephropathy ([place]) [place] [address] Social History Tobacco Use Types Packs/Day Years [...] How often do you attend rastafarian or druze services? 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 - 05/27/2021 10:00 AM CST Subjective: Patient is being seen in the CKD clinic out reach at [place]. History of Present Illness: Mr. Walton is [...] next week. He is currently taking ergocalciferol 27230 Units a week. #6 Metabolic acidosis screening Bicarbonate: at goal Bicarbonate Therapy: Not needed Follow-up: [facility], 3 months LID FITTER documented in this encounter Plan of Treatment [...] e Number [facility]- [address] [place] [address] [facility] [place] [place] [address] [facility] [address] (ABNORMAL) [...] City/State/ZIP Code Phon e Number [facility] - [address] [place], [place] [address] [facility] [place] [address] Laboratories-[facility] [address] (ABNORMAL) [...] supplements. ??If the result does not [facility] clinical observations, repeat testing after patient [...] Number [facility]- [address] [place] [address] [facility] [place] [place] [address] [facility] [address] (ABNORMAL) [...] eGFR-Black/Afri 24 (L) >=60 08/24/2021 [place] can Bulgarian mL/min/BSA 11:43 AM CDT Comment: ----ADDITIONAL INFORMATION---- Estimated GFR calculated using the 2009 CKD_EPI creatinine equation. eGFR Non-Black/ 20 (L) >=60 mL/min/BSA 08/24/2021 11:43 AM CDT OW[place] Bulgarian Comment: ----ADDITIONAL INFORMATION---- Estimated [...] 08/25/19 3:55 Venous) CDT PM CDT Narrative [facility] - 08/24/2021 4:40 PM CDT Specimen Information: Specimen ID: [id number] Specimen Type: Blood Specimen Collection Start Date: 08/25/19 ??8:50 AM Specimen Received Date: 08/24/2021 ??3:5 5 PM Specimen ID: [id number] Specimen Type: Blood Specimen Collection Start Date: 08/25/19 ??8:50 AM Specimen Received Date: 08/24/2021 10:51 AM Hui Delgado APRN, C.N.P., D.N.P. LAB BLOOD AD D-ON Performing Organization Address City/State/ZIP Code Phon e Number [facility]- [address] [place] [address] [place] [address] System in [place] [address] A[place] [facility] [place] [address] [facility] [address] (ABNORMAL) CBC without Differential (08/24/2021 8:50 AM CDT) [facility] gist Method Time Signature Hemoglobin 11.3 [...] LAB BLOOD AD D-ON Performing Organization Address City/[facility] Phon e Number [address] [place] [address] [facility] [address] [place] [address] (ABNORMAL) Albumin, Random, Urine (08/24/2021 8:46 AM CDT) [facility] gist Method Time Signature Microalbumin 1117.0 [...] LAB URINE OR DERABLES Performing Organization Address City/[facility] Code Phon e Number [facility]- [address] [place] [address] [facility] [place] [address] System in [place] [address] (ABNORMAL) Urinalysis with Microscopic: [...] 8.0 08/24/2021 9:06 AM CDT FB60 Specific [place] 1.020 1.001 - 1.035 08/24/2021 9:06 AM [...] LAB URINE OR DERABLES Performing Organization Address City/[facility]/ZIP Code Phon e Number [facility]- [address] [place] [address] [facility] [address] [place] [address] System in [place] [address] (ABNORMAL) Calcium, Ionized (05/28/2021 2:27 PM DECK LID FITTER) athologist Signature Calcium, 4.13 (L) 4.57 - 05/29/2021 DTL Ionized, S 5.43 mg/dL 7:46 AM DECK LID FITTER Comment: ----ADDITIONAL INFORMATION---- This test has been modified from the man ufacturer's instructions. Its performance characteri stics were determined by [facility] in a manner co nsistent with CLIA requirements. This test has not bee n cleared or approved by the U.S. Food and Drug Admin istration. pH for Ionized Calcium 7.30 (L) 7.35 - 7.48 05/29/2021 7:46 AM DECK LID FITTER DTL Specimen Anatomical Collection Method Collection Time Receive d Time (Source) Location / / Volume Laterality Blood (Blood, 05/28/2021 2:27 PM 05/29/19 7:24 Venous) DECK LID FITTER AM DECK LID FITTER Hui Delgado APRN, C.N.P., D.N.P. LAB BLOOD NO N ADD-ON Performing Organization Address City/[facility] Code Phon e Number [facility] - [address] [place], [place] [address] [facility] [place] [address] [facility] [address] [facility] (ABNORMAL) Calcium, Total (05/28/2021 2:27 PM DECK LID FITTER) athologist Signature Calcium, 7.6 (L) 8.8 - 10.2 05/28/2021 [place] Total, P mg/dL 4:12 PM DECK LID FITTER Specimen Anatomical Collection Method Collection Time Receive d Time (Source) Location / / Volume Laterality Blood (Blood, 05/28/2021 2:27 PM 05/28/19 3:44 Venous) DECK LID FITTER PM DECK LID FITTER Hui Delgado APRN, C.N.P., D.N.P. LAB BLOOD AD D-ON Performing Organization Address City/State/ZIP Code Phon e Number [facility]- [address] [place] [address] [place] [place] [address] System in [place] [address] 1,25-Dihydroxyvitamin D (05/28/2021 2:27 PM DECK LID FITTER) Patholo gist Method Time Signature 1, 25 20 18 - 64 06/02/2021 [facility] DIHYDROXYVITAMIN D, pg/mL 10:50 AM DECK LID FITTER S Comment: ----ADDITIONAL INFORMATION---- This test was [...] (Blood, 05/28/2021 2:27 PM 05/29/19 7:41 Venous) DECK LID FITTER AM DECK LID FITTER Hui Delgado APRN, C.N.P., D.N.P. LAB BLOOD AD D-ON Performing Organization Address City/State/ZIP Code Phon e Number [facility] [address] [place], [place] [address] [place], [place] [address] [address] Laboratory Medicine and Pathology [address] [place] 25-Hydroxyvitamin D2 and D3 (05/28/2021 2:27 PM DECK LID FITTER) P athologist Signature 25-Hydroxy D2 28 ng/mL 05/30/2021 SDSC 11:19 AM DECK LID FITTER 25-Hydroxy D3 4.3 ng/mL 05/30/2021 SDSC 11:19 AM DECK LID FITTER 25-Hydroxy D 32 ng/mL 05/30/2021 [facility] Total 11:19 AM DECK LID FITTER Comment: ----REFERENCE VALUE---- 25-HYDROXY D TOTAL (D2+D3) [...] 05/28/2021 2:27 PM 05/29/19 22 7:17 Venous) DECK LID FITTER AM DECK LID FITTER Hui Delgado Jennifer GALLEGONChucho, D.N.P. LAB BLOOD AD D-ON Performing Organization Address City/State/ZIP Code Phon e Number [facility] [address] [place], [place] [address] SUPPORT [facility] [place] [address] Laboratory Medicine and Pathology [address] [...] documented as of this encounter Care Teams Campus Coordinator Relationship Specialty Start Date End Date Elsewhere, Pcp PCP - General Family Medicine 01/29/20 documented as of this encounter
--- OUTSIDE RECORDS SUMMARY | 2022-04-28 14:39 | XMS_ITS | Encounter Summary ---
:1950 Author Organization [facility] Address [address] [place] [address] Care Team Providers Name Role Phone Elsewhere, Pcp Primary Care Provider Unavailable Reason for Visit Reason Comments Follow-up Encounter Details Date Type Department Care Team Description 09/28/2021 Clinical Communication Division of Nephrology Abbey Kruse, Follow-up and Hypertension in [place], [place] [address] [facility] [address] [place] [phone] Social History Tobacco Use Types Packs/Day Years [...] How often do you attend anabaptist or nondenominational services? 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 I will also send anew prescription to [facility] for Lasix 60 mg daily. PLAN Disposition/Recommendation: [...] eGFR-Black/Afri 20 (L) >=60 10/21/2021 OWAT can Jordanian mL/min/BSA 2:21 PM CDT Comment: ----ADDITIONAL INFORMATION---- Estimated GFR calculated using the 2009 CKD_EPI creatinine equation. eGFR Non-Black/ 17 (L) >=60 mL/min/BSA 10/21/2021 2:21 PM CDT OWAT Jordanian Comment: ----ADDITIONAL INFORMATION---- Estimated GFR calculated using the 2009 CKD_EPI creatinine equation. Specimen Anatomical Collection Method Collection Time Receive d Time (Source) Location / / Volume Laterality Blood (Blood, 10/21/2021 12:02 10/21/2021 1:05 Venous) PM CDT PM CDT Hui Delgado APRN, C.N.P., D.N.P. LAB BLOOD AD D-ON Performing Organization Address City/State/ZIP Code Phon e Number [facility]- [address] [place] [address] [place] [address] System in [place] [address] Potassium (10/21/2021 12:02 PM [...] Organization Address City/State/ZIP Code Phon e Number [facility]- [address] [place] [address] [place] [address] System in [place] [address] documented in this encounter Visit Diagnoses Diagnosis Hypertension And Chronic Kidney Disease Stage 1 To 4 - Primary Chronic Kidney Disease Stage 4 Glomerula r Filtration Rate 15-29 (HCC) documented in this encounter Additional Health Concerns Assessment Noted Time PHQ-9 Depression Total Score: 3 01/03/2018 10:38 AM CD T documented as of this encounter Care Teams Student Support Advisor Relationship Specialty Start Date End Date Elsewhere, Pcp PCP - General Family Medicine 01/29/20 documented as of this encounter
--- OUTSIDE RECORDS SUMMARY | 2022-04-28 14:39 | XMS_ITS | Encounter Summary ---
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 LAB BLOOD AD D-ON Performing Organization Address City/State/ZIP Code Phon e Number [facility]- [address] [place] [address] [facility] [place] [address] [facility] [address] (ABNORMAL) Cystatin C [...] AM 08/26/19 1:17 Venous) CDT PM CDT William Mullins APRN.N.P., D.N.P. LAB BLOOD AD D-ON Performing Organization Address City/[facility]/ZIP Code Phon e Number [facility] - [address] [place], [place] [address] [facility] [place] [address] Laboratories-[facility] [address] (ABNORMAL) [...] supplements. ??If the result does not [facility] clinical observations, repeat testing after patient refrains fr om the use of supplements for at least 12 hours. Specimen Anatomical Collection Method Collection Time Receive d Time (Source) Location / / Volume Laterality Blood (Blood, 08/24/2021 8:50 AM 08/25/19 3:55 Venous) CDT PM CDT Hui Jennifer Powell APRNNFeiP., D.N.P. LAB BLOOD AD D-ON Performing Organization Address City/State/ZIP Code Phon e Number [facility]- [address] [place] [address] [facility] [place], [place] [id number] [place] [address] (ABNORMAL) Renal Function [...] eGFR-Black/Afri 24 (L) >=60 08/24/2021 OW[place] can Cypriot mL/min/BSA 11:43 AM CDT Comment: ----ADDITIONAL INFORMATION---- Estimated GFR calculated using the 2009 CKD_EPI creatinine equation. eGFR Non-Black/ 20 (L) >=60 mL/min/BSA 08/24/2021 11:43 AM CDT OW[facility] Cypriot Comment: ----ADDITIONAL INFORMATION---- Estimated GFR calculated using [...] 08/25/19 3:55 Venous) CDT PM CDT Narrative [facility] - 08/24/2021 4:40 PM CDT Specimen Information: Specimen ID: [id number] Specimen Type: Blood Specimen Collection Start Date: 08/25/19 ??8:50 AM Specimen Received Date: 08/24/2021 ??3:5 5 PM Specimen ID: [id number] Specimen Type: Blood Specimen Collection Start Date: 08/25/19 ??8:50 AM Specimen Received Date: 08/24/2021 10:51 AM Hui Delgado APRN, C.N.P., D.N.P. LAB BLOOD AD D-ON Performing Organization Address City/State/ZIP Code Phon e Number [facility]- [address] [place] [address] [place] [address] System in [place] [address] [place] [address] [facility] [address] (ABNORMAL) CBC without Differential (08/24/2021 8:50 AM CDT) [facility] Method Time Signature Hemoglobin 11.3 (L) [...] Organization Address City/State/ZIP Code Phon e Number [facility]- [facility] [address] [place], [place] [id number] [place] [address] LAB [address] [place] [address] System [address] documented in this encounter Visit [...] documented as of this encounter Care Teams Investigator Internal Affairs Relationship Specialty Start Date End Date Elsewhere, Pcp PCP - General Family Medicine 01/29/20 documented as of this encounter
--- OUTSIDE RECORDS SUMMARY | 2022-04-28 14:39 | XMS_ITS | Encounter Summary ---
:1950 Author Organization [facility] Address [address] [place] [address] Care Team Providers Name Role Phone Elsewhere, Pcp Primary Care Provider Unavailable Encounter Details Date Type Department Care Team Description 06/01/2021 Orders Only Division of Nephrology and [place], Hui Reddy, Hypertension, Buddhism JULIÁN, C.N.P., D.N .P. [place], in [place], [place] [address] [place] [address] Social History Tobacco Use Types Packs/Day [...] How often do you attend episcopal or latter day services? 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
--- OUTSIDE RECORDS SUMMARY | 2022-04-28 14:39 | XMS_ITS | Encounter Summary ---
:1950 Author Organization [facility] Address [address] [place] [address] Care Team Providers Name Role Phone Elsewhere, Pcp Primary Care Provider Unavailable Reason for Visit Appointment Request (Routine) - Closed Specialty Diagnoses / Procedures Referred By Contact Refer red To Contact Nephrology and Hypertension Referral ID Status Reason Start Date Expiration Date Visits Requ ested Visits Authorized [id number] Closed 08/07/2021 08/07/2022 1 Encounter Details Date Type Department Care Team Description 08/26/2021 [facility] An d Chronic Kidney Disease Stage 1 To 4 (Primary Dx); Outreach Nephrology and Hui Chronic Kidne y Disease Stage 4 Glomerular Filtration Rate 15-29 (HCC); Hypertension 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 [address] Social History Tobacco Use Types Packs/Day Years [...] How often do you attend alevism or pentecostal services? 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 History of Present Illness: Mr. [...] 4.6, CO2 26, Calcium 7.6 recheck at [place] [facility] 8.1, Corrected calcium 8.4 See [facility] from 08/24/21 for the other results. [...] Therapy: Already on, no changes made Follow-up: [facility], 3 months documented in this [...] LAB BLOOD AD D-ON Performing Organization Address City/State/[facility] Code Phon e Number [facility]- [address] [place] [address] [facility] [place], [place] [address] [place] [address] (ABNORMAL) Cystatin C [...] Organization Address City/State/ZIP Code Phon e Number [facility] - [address] [place], [place] [address] [facility] [place] [address] Laboratories-[facility] [address] (ABNORMAL) Parathyroid Hormone (PTH) (11/04/2021 9:07 AM CDT) Analysis Performed At [facility] Time Signature Parathyroid 253 (H) 15 [...] City/State/ZIP Code Phon e Number [facility]- [address] [place] [address] [facility] [place], [place] [address] [place] [address] (ABNORMAL) Renal Function Panel (11/04/2021 9:07 AM CDT) Analysis Performed At [facility] Time Signature Potassium, P 4.8 3.6 [...] eGFR-Black/Afri 20 (L) >=60 11/04/2021 OWAT can Cameroonian mL/min/BSA 11:43 AM CDT Comment: ----ADDITIONAL INFORMATION---- Estimated GFR calculated using the 2009 CKD_EPI creatinine equation. eGFR Non-Black/ 17 (L) >=60 mL/min/BSA 11/04/2021 11:43 AM CDT OWAT Cameroonian Comment: ----ADDITIONAL INFORMATION---- Estimated GFR calculated using [...] 11/05/19 4:39 Venous) CDT PM CDT Narrative [facility] - 11/04/2021 5:09 PM CDT Specimen Information: Specimen ID: [id number] Specimen Type: Blood Specimen Collection Start Date: 11/05/19 ??9:07 AM Specimen Received Date: 11/04/2021 ??4:3 9 PM Specimen ID: [id number] Specimen Type: Blood Specimen Collection Start Date: 11/05/19 ??9:07 AM Specimen Received Date: 11/04/2021 11:03 AM Hui Delgado APRN C.N.P., D.N.P. LAB BLOOD AD D-ON Performing Organization Address City/State/ZIP Code Phon e Number [facility]- [address] [place] [address] [place] [address] System in [place] [address] [place] [address] [facility] [place] [facility] [address] (ABNORMAL) CBC without Differential (11/04/2021 9:07 AM CDT) [facility] Method Time Signature Hemoglobin 11.5 [...] City/State/ZIP Code Phon e Number [facility]- [address] [place] [address] [facility] [address] [place] [address] System in [place] [address] (ABNORMAL) Albumin, Random, Urine (11/04/2021 8:58 AM CDT) [facility] Method Time Signature Microalbumin 395.0 [...] City/State/ZIP Code Phon e Number [facility]- [address] [place] [address] [facility] [place] [address] System in [place] [address] (ABNORMAL) Urinalysis with Microscopic: Urine, [...] 8.0 11/04/2021 9:43 AM CDT FB60 Specific [place] 1.015 1.001 - 1.035 11/04/2021 9:43 AM [...] LAB URINE OR DERABLES Performing Organization Address City/[facility] Phon e Number [facility]- [address] [facility] [address] [facility] [address] [place] [address] [address] Potassium (09/08/2021 11:33 AM CDT) P athologist Signature Potassium, P 4.6 3.6 - 5.2 09/08/2021 OWAT mmol/L 1:44 PM CDT Specimen Anatomical Collection Method Collection Time Receive d Time (Source) Location / / Volume Laterality Blood (Blood, 09/08/2021 11:33 09/08/2021 1:15 Venous) AM CDT PM CDT Hui Delgado APRN, C.N.P., D.N.P. LAB BLOOD AD D-ON Performing Organization Address City/[facility] Phon e Number [facility]- [address] [place] [address] [place] [address] System in [place] [address] (ABNORMAL) Creatinine with Estimated GFR (09/08/2021 11:33 AM CDT) Analysis Performed At Patho logist Time Signature Creatinine 3.21 (H) 0.74 - 09/08/2021 OWAT 1.35 mg/dL 1:44 PM CDT eGFR-Black/Afri 22 (L) >=60 09/08/2021 OWAT can Cameroonian mL/min/BSA 1:44 PM CDT Comment: ----ADDITIONAL INFORMATION---- Estimated GFR calculated using the 2009 CKD_EPI creatinine equation. eGFR Non-Black/ 19 (L) >=60 mL/min/BSA 09/08/2021 1:44 PM CDT OW[facility] Cameroonian Comment: ----ADDITIONAL INFORMATION---- Estimated GFR calculated using the 2009 CKD_EPI creatinine equation. Specimen Anatomical Collection Method Collection Time Receive d Time (Source) Location / / Volume Laterality Blood (Blood, 09/08/2021 11:33 09/08/2021 1:15 Venous) AM CDT PM CDT Hui Delgado APRN, C.N.P., D.N.P. LAB BLOOD AD D-ON Performing Organization Address City/State/ZIP Code Phon e Number [facility]- [address] [place] [address] [place] [address] System in [place] [address] documented in this encounter [...] documented as of this encounter Care Teams Farm Mechanic Relationship Specialty Start Date End Date Elsewhere, Pcp PCP - General Family Medicine 01/29/20 documented as of this encounter
--- OUTSIDE RECORDS SUMMARY | 2022-04-28 14:39 | XMS_ITS | Encounter Summary ---
:1950 Author Organization [facility] Address [address] [place] [address] Care Team Providers Name Role Phone Elsewhere, Pcp Primary Care Provider Unavailable Encounter Details Date Type Department Care Team Description 09/08/2021 Hospital [facility] Chronic Kidney Laboratory Medicine Hui Reddy APRN, Diseas e Stage 4 in [place]queline, C.N.P., D.N.P. Glomerular [place] Filtration Rate [address] 15-29 (HCC) 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 (HCC) CREATININE WITH Routine 09/08/2021 11:33 AM [...] Address City/State/ZIP Code Phon e Number [facility]- [address] [place] [address] [facility] [place] [address] System in [place] [address] (ABNORMAL) Creatinine with Estimated GFR (09/08/2021 11:33 AM CDT) Analysis Performed At Patho logist Time Signature Creatinine 3.21 (H) 0.74 - 09/08/2021 OWAT 1.35 mg/dL 1:44 PM CDT eGFR-Black/Afri 22 (L) >=60 09/08/2021 OWAT can [place] mL/min/BSA 1:44 PM CDT Comment: ----ADDITIONAL INFORMATION---- Estimated GFR calculated using the 2009 CKD_EPI creatinine equation. eGFR Non-Black/ 19 (L) >=60 mL/min/BSA 09/08/2021 1:44 PM CDT OWAT [place] Comment: ----ADDITIONAL INFORMATION---- Estimated GFR calculated using the 2009 CKD_EPI creatinine equation. Specimen Anatomical Collection Method Collection Time Receive d Time (Source) Location / / Volume Laterality Blood (Blood, 09/08/2021 11:33 09/08/2021 1:15 Venous) AM CDT PM CDT William Mullins APRN.N.P., D.N.P. LAB BLOOD AD D-ON Performing Organization Address City/State/ZIP Code Phon e Number [facility]- [address] [place] [address] [facility] [place] [address] System in [place] [address] documented in this encounter Visit Diagnoses Diagnosis Chronic Kidney Disease Stage 4 Glomerula r Filtration Rate 15-29 (HCC) documented in this encounter Additional Health Concerns Assessment Noted Time PHQ-9 Depression Total Score: 3 01/03/2018 10:38 AM CD T documented as of this encounter Care Teams Utility Tractor Operator Relationship Specialty Start Date End Date Elsewhere, Pcp PCP - General Family Medicine 01/29/20 documented as of this encounter
--- OUTSIDE RECORDS SUMMARY | 2022-04-28 14:40 | XMS_ITS | Encounter Summary ---
:1950 Author Organization [facility] Address [address] [place] [address] Care Team Providers Name Role Phone Elsewhere, Pcp Primary Care Provider Unavailable Reason for Visit Reason Comments Labs Only-outside labs Encounter Details Date Type Department Care Team Description 03/24/2021 Clinical Communication Division of Abbey Kruse Labs Only-outside Nephrology and M, R.N. labs Hypertension in [address] [place] [address] [address] [facility] [phone] Social History Tobacco Use Types Packs/Day Years [...] How often do you attend mandaen or samaritan services? 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 - 03/24/2021 4:19 PM CST Labs completed at: [facility] Lab Fax: Date Collected 03/18/21 02/25/21 CBC Hemoglobin WBC Platelets Absolute Neutrophils Chem Panel Sodium Potassium 5.6 5.5 Chloride Creatinine 3.0 BUN CO2 23 Glucose HgbA1C Calcium 8.0 Phosphorus Uric Acid PTH Albumin Liver Function AST Alk Phosphatase Total Bili Urine Studies Microalbuminuria Random 24 hour urine protein Protein-creatinine ratio Albumin-creatinine ratio Total Urine Volume Other test MBLER FOR PULLER OVER MACHINE documented in this encounter Plan of Treatment Not on filedocumented as of this encounter Visit Diagnoses Not on filedocumented in this encounter Additional Health Concerns Assessment Noted Time PHQ-9 Depression Total Score: 3 01/03/2018 10:38 AM CD T documented as of this encounter Care Teams Underpresser Hand Relationship Specialty Start Date End Date Elsewhere, Pcp PCP - General Family Medicine 01/29/20 documented as of this encounter
--- OUTSIDE RECORDS SUMMARY | 2022-04-28 14:40 | XMS_ITS | Encounter Summary ---
:[address] [facility] Address [address] [place] [address] Care Team Providers Name Role Phone Elsewhere, Pcp Primary Care Provider Unavailable Encounter Details Date Type Department Care Team Description 03/05/2021 Clinical Communication Division of Nephrology [place], Trisha Carrizales, and Hypertension in [place], [place] [address] [facility] [address] [place] [phone] [phone] Social History Tobacco Use Types Packs/Day Years [...] How often do you attend hoahaoism or faith services? 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
--- OUTSIDE RECORDS SUMMARY | 2022-04-28 14:40 | XMS_ITS | Encounter Summary ---
:1950 Author Organization [facility] Address [address] [place] [address] Care Team Providers Name Role Phone Elsewhere, Pcp Primary Care Provider Unavailable Encounter Details Date Type Department Care Team Description 02/24/2021 Clinical Communication Division of Nephrology Wellerri tter, and Hypertension, [facility], in C.N.P., D.N.P. [place], [place] [address] [place] [address] Social History Tobacco Use Types Packs/Day Years [...] How often do you attend samaritan or samaritan services? 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
--- OUTSIDE RECORDS SUMMARY | 2022-04-28 14:40 | XMS_ITS | Encounter Summary ---
:1950 Author Organization [facility] Address [address] [place] [address] Care Team Providers Name Role Phone Elsewhere, Pcp Primary Care Provider Unavailable Reason for Referral Specialty Diagnoses / Procedures Referred By Contact Refer red To Contact Louise [facility] C.[facility] D.N.P. [address] [place] [address] Referral ID Status Reason Start Date Expiration Date Visits Requ ested Visits Authorized utpatient (Routine) - Closed Specialty Diagnoses / Procedures Referred By Contact Refer red To Contact Nutrition Diagnoses Chronic Kidney Disease Stage 4 Glomerular Filtration Rate 15-29 (HCC) Louise [facility] D.N.P. [address] [place] [address] Referral ID Status Reason Start Date Expiration Date Visits Requ ested Visits Authorized [id number] Closed 03/26/2021 03/26/2022 1 1 Scheduling Instructions This appointment should ideally be sched uled AFTER the University Tutor Consults, but must at least be scheduled 48 hours afte r 24-hour urine collection is complete. Virtual visit is acceptable for this titian visit. THESIOLOGIST ATTENDING Reason for Visit Appointment Request (Routine) - Closed Specialty Diagnoses / Procedures Referred By Contact Refer red To Contact Nephrology and Hypertension Referral ID Status Reason Start Date Expiration Date Visits Requ ested Visits Authorized [id number] Closed 03/05/2021 03/05/2022 1 1 Encounter Details Date Type Department Care Team Description 03/25/2021 Virtual Visit Division of Nephrology Hui Cohn APRN, C.N.Kinza., D.N.P. Chronic Kidney and Hypertension in [place], Louise Narayanan, Jennifer GALLEGON.Kinza., D.N.P. [address] [place] [address] Disease Stage 4 [place], [place] Glomerular [address] [facility] Filtration Rate [place], [place] 15-29 (HCC) (P rimary [address] Dx) [phone] Social History Tobacco Use Types Packs/Day Years [...] How often do you attend mandaen or latter day services? 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 - 03/25/2021 8:30 AM CST Consult conducted via real-time audio technology by Louise Flores) JULIÁN Hussein, William.N.P., D.N.P. in [facility] to the patient in their home. [...] have requested he been seen in the [place] CKD clinic in May, 2021. Louise Hussein (Peggy) TALENT SOURCER/[id number] Chronic [facility] [place], [place] THESIOLOGIST ATTENDING documented in this encounter Plan of Treatment Scheduled Referrals Name Type Priority Associated Order Schedule Diagnoses Nutrition - Outpatient Referral Routine Chronic Kidney Expect ed: Nephrology medical Disease Stage 4 2021 nutrition therapy Glomerular (Approxima te), consult (clinic) Filtration Rate Expires: ([facility]) 03/26/2024 Patient Education - Outpatient Referral Routine Chronic Kidney Expected: ESRD Treatment Disease Stage 4 05/27/2021 Options (Clinic) Glomerular (Approximat e), Filtration Rate Expires: ([facility]) 03/26/2024 documented as of this encounter Results (ABNORMAL) Albumin, Random, Urine (05/22/2021 10:05 AM ANESTHESIOLOGIST ATTENDING) Patholo gist Method Time Signature Microalbumin 594.0 mg/L 05/22/2021 OWAT 2:04 PM ANESTHESIOLOGIST ATTENDING Creatinine 39 mg/dL 05/22/2021 OWAT 1:44 PM ANESTHESIOLOGIST ATTENDING Albumin/Creatinin 1523 (H) <17 mg/g 05/22/2021 OWAT e Ratio 2:04 PM ANESTHESIOLOGIST ATTENDING Specimen Anatomical Collection Method Collection Time Receive d Time (Source) Location / / Volume Laterality Urine (Urine, 05/22/2021 10:05 05/22/2021 1:04 Clean Catch) AM ANESTHESIOLOGIST ATTENDING PM ANESTHESIOLOGIST ATTENDING Louise Hussein APRN, C.N.P., D.N.P. LAB URINE NATALYE XAVIER Performing Organization Address City/State/ZIP Code Phon e Number [facility]- [address] [place] [address] [place] [address] System in [place] [address] (ABNORMAL) Urinalysis with Microscopic: Urine, Midstream (05/22/2021 10:05 AM ANESTHESIOLOGIST ATTENDING) Analysis Performed At Patho logist Time Signature Source Urine, Urine, 05/22/2021 FB60 Midstream 10:06 AM ANESTHESIOLOGIST ATTENDING Clarity Clear Clear 05/22/2021 FB60 10:10 AM ANESTHESIOLOGIST ATTENDING Color Yellow 05/22/2021 FB60 10:10 AM ANESTHESIOLOGIST ATTENDING Comment: ----REFERENCE VALUE---- Colorless Yellow Cha Blood Trace (A) Negative 05/22/2021 10:10 AM ANESTHESIOLOGIST ATTENDING FB60 Nitrite Negative Negative 05/22/2021 10:10 AM ANESTHESIOLOGIST ATTENDING FB60 Leukocyte Esterase Negative Negative 05/22/2021 10:[address] FB60 Protein 100 (A) mg/dL 05/22/2021 10:10 AM ANESTHESIOLOGIST ATTENDING FB60 Comment: ----REFERENCE VALUE---- Negative Trace Glucose Negative Negative mg/dL 05/22/2021 10:10 AM ANESTHESIOLOGIST ATTENDING F B60 Ketones, QI(U) Negative Negative mg/dL 05/22/2021 10:10 AM ANESTHESIOLOGIST ATTENDING FB60 Bilirubin Negative Negative 05/22/2021 10:10 AM ANESTHESIOLOGIST ATTENDING FB60 pH 5.5 5.0 - 8.0 05/22/2021 10:10 AM ANESTHESIOLOGIST ATTENDING FB60 Specific Duncan 1.015 1.001 - 1.035 05/22/2021 10:10 AM ANESTHESIOLOGIST ATTENDING FB60 Urobilinogen 0.2 0.2 - 1.0 mg/dL 05/22/2021 10:[address] FB60 White Blood Cells None Seen /hpf 05/22/2021 10:50 AM CS T FB60 Comment: ----REFERENCE VALUE---- Males: 0-3 Females: 0-10 Unknown: 0-10 Red Blood Cells None Seen 0 - 2 /hpf 05/22/2021 10:50 AM ANESTHESIOLOGIST ATTENDING FB60 Squamous Cells 4-10 /hpf 05/22/2021 10:50 AM ANESTHESIOLOGIST ATTENDING F B60 Specimen Anatomical Collection Method Collection Time Receive d Time (Source) Location / / Volume Laterality Urine (Urine, 05/22/2021 10:05 05/22/2021 Midstream) AM ANESTHESIOLOGIST ATTENDING 10:05 AM ANESTHESIOLOGIST ATTENDING Louise Hussein APRN, C.N.P., D.N.P. LAB URINE ORDE RABLES Performing Organization Address City/State/ZIP Code Phon e Number [address] [place] [address] [facility] [address] [place] [address] (ABNORMAL) Iron and Total Iron-Binding Capacity (05/22/2021 10:00 AM ANESTHESIOLOGIST ATTENDING) P athologist Signature Iron 58 50 - 150 05/22/2021 [place] mcg/dL 4:02 PM ANESTHESIOLOGIST ATTENDING Total Iron 221 (L) 250 - 400 05/22/2021 [place] Binding mcg/dL 4:02 PM ANESTHESIOLOGIST ATTENDING Capacity Percent 26 14 - 50 % 05/22/2021 [place] Saturation 4:02 PM ANESTHESIOLOGIST ATTENDING Specimen Anatomical Collection Method Collection Time Receive d Time (Source) Location / / Volume Laterality Blood (Blood, 05/22/2021 10:00 05/22/2021 3:33 Venous) AM ANESTHESIOLOGIST ATTENDING PM ANESTHESIOLOGIST ATTENDING Louise Hussein APRN, C.N.P., D.N.P. LAB BLOOD ADD- ON Performing Organization Address City/State/ZIP Code Phon e Number [facility]- [address] [place] [address] [facility] [place] [address] [facility] [address] Ferritin (05/22/2021 10:00 AM ANESTHESIOLOGIST ATTENDING) athologist Signature Ferritin, S 120 31 - 409 05/22/2021 OW mcg/L 1:50 PM ANESTHESIOLOGIST ATTENDING Comment: Biotin has been identified by the [...] (Blood, 05/22/2021 10:00 05/22/2021 1:03 Venous) AM ANESTHESIOLOGIST ATTENDING PM ANESTHESIOLOGIST ATTENDING William Lopez APRN.N.P., D.N.P. LAB BLOOD ADD- ON Performing Organization Address City/State/ZIP Code Phon e Number [facility]- [address] [place] [address] [facility] [place] [place] [address] System in [place] [address] [place] [address] HBs Antibody, Serum (05/22/2021 10:00 AM ANESTHESIOLOGIST ATTENDING) athologist Signature HBs Antibody, Negative 05/22/2021 [place] S 4:45 PM ANESTHESIOLOGIST ATTENDING Comment: ----REFERENCE VALUE---- Unvaccinated: Negative Vaccinated: Positive HBs Antibody, Quantitative, S <3.5 mIU/mL 05/22/2021 4:45 PM ANESTHESIOLOGIST ATTENDING AUST Comment: ----REFERENCE VALUE---- <8.50: Negative 8.50-11.49: Indeterminate >=11.50: Positive Specimen Anatomical Collection Method Collection Time Receive d Time (Source) Location / / Volume Laterality Blood (Blood, 05/22/2021 10:00 05/22/2021 3:33 Venous) AM ANESTHESIOLOGIST ATTENDING PM ANESTHESIOLOGIST ATTENDING Louise Hussein APRN, C.N.P., D.N.P. LAB MICROBIOLO GY - BLOOD ORDERABLES Performing Organization Address City/[facility] Phon e Number [facility]- [address] [place] [address] [place] [facility] [place] [facility] - [place], [place] [id number] [place] [address] HBc Total Ab, Serum (05/22/2021 10:00 AM ANESTHESIOLOGIST ATTENDING) P athologist Signature HBc Total Ab, Negative Negative 05/23/2021 [facility] S 9:56 AM ANESTHESIOLOGIST ATTENDING Specimen Anatomical Collection Method Collection Time Receive d Time (Source) Location / / Volume Laterality Blood (Blood, 05/22/2021 10:00 05/23/2021 8:42 Venous) AM ANESTHESIOLOGIST ATTENDING AM ANESTHESIOLOGIST ATTENDING William Lopez APRN.N.P., D.N.P. LAB MICROBIOLO GY - BLOOD ORDERABLES Performing Organization Address [facility] Phon e Number [facility] [address] [place] [address] SUPPORT CENTER [facility] [place] [address] Laboratory Medicine and Pathology [address] [place] [address] Dr. RAIN Hepatitis B Surface Antigen (05/22/2021 10:00 AM ANESTHESIOLOGIST ATTENDING) Pathuniversal health services gist Method Time Signature HBs Antigen, Nonreactive Nonreactive 05/22/2021 AUS S 4:45 PM ANESTHESIOLOGIST ATTENDING Comment: Biotin has been identified by the [...] (Blood, 05/22/2021 10:00 05/22/2021 3:33 Venous) AM ANESTHESIOLOGIST ATTENDING PM ANESTHESIOLOGIST ATTENDING Louise Hussein APRN, William.N.P., D.N.P. LAB MICROBIOLO GY - BLOOD ORDERABLES Performing Organization Address City/[facility]/ZIP Code Phon e Number [facility]- [address] [place] [address] [place] [facility] [place] [facility] - [place], [place] [id number] [place] [address] (ABNORMAL) Cystatin C with Estimated GFR, S (05/22/2021 10:00 AM ANESTHESIOLOGIST ATTENDING) P athologist Signature eGFR by 19 (L) >60 05/23/2021 [place] Cystatin C mL/min/BSA 7:05 AM ANESTHESIOLOGIST ATTENDING Comment: Estimated GFR calculated using the CKD-E [...] 0.67 - 1.21 mg/L 05/23/2021 7:05 AM ANESTHESIOLOGIST ATTENDING DTL Specimen Anatomical Collection Method Collection Time Receive d Time (Source) Location / / Volume Laterality Blood (Blood, 05/22/2021 10:00 05/23/2021 6:48 Venous) AM ANESTHESIOLOGIST ATTENDING AM ANESTHESIOLOGIST ATTENDING Louise Hussein APRN, C.N.P., D.N.P. LAB BLOOD ADD- ON Performing Organization Address City/State/ZIP Code Phon e Number [facility] - [address] [place], [place] [address] [facility] [place] [address] [facility] [address] (ABNORMAL) Parathyroid Hormone (PTH) (05/22/2021 10:00 AM ANESTHESIOLOGIST ATTENDING) Analysis Performed At Patho logist Time Signature Parathyroid 260 (H) 15 - 65 05/22/2021 [place] Hormone (PTH), S pg/mL 4:17 PM ANESTHESIOLOGIST ATTENDING Comment: Biotin has been identified by the [...] (Blood, 05/22/2021 10:00 05/22/2021 3:33 Venous) AM ANESTHESIOLOGIST ATTENDING PM ANESTHESIOLOGIST ATTENDING William Lopez APRN.N.P., D.N.P. LAB BLOOD ADD- ON Performing Organization Address City/State/ZIP Code Phon e Number [facility]- [address] [place] [address] [facility] [place] [place] [address] [facility] [address] (ABNORMAL) Renal Function Panel (05/22/2021 10:00 AM ANESTHESIOLOGIST ATTENDING) Analysis Performed At Patho logist Time Signature Potassium, P 4.7 3.6 - 5.2 05/22/2021 [place] mmol/L 1:39 PM ANESTHESIOLOGIST ATTENDING Sodium, P 137 135 - 145 05/22/2021 [place] mmol/L 1:39 PM ANESTHESIOLOGIST ATTENDING Chloride, P 104 98 - 107 05/22/2021 [place] mmol/L 1:39 PM ANESTHESIOLOGIST ATTENDING Bicarbonate, P 23 22 - 29 05/22/2021 [place] mmol/L 1:39 PM ANESTHESIOLOGIST ATTENDING Anion Gap, P 10 7 - 15 05/22/2021 [place] 1:39 PM ANESTHESIOLOGIST ATTENDING BUN (Blood Urea 36 (H) 8 - 24 05/22/2021 [place] Nitrogen), P mg/dL 1:39 PM ANESTHESIOLOGIST ATTENDING Creatinine 2.59 (H) 0.74 - 05/22/2021 [place] 1.35 mg/dL 1:39 PM ANESTHESIOLOGIST ATTENDING eGFR-Black/Afri 28 (L) >=60 05/22/2021 [place] can [place] mL/min/BSA 1:39 PM ANESTHESIOLOGIST ATTENDING Comment: ----ADDITIONAL INFORMATION---- Estimated GFR calculated using the 2009 CKD_EPI creatinine equation. eGFR Non-Black/ 24 (L) >=60 mL/min/BSA 05/22/2021 1:39 PM ANESTHESIOLOGIST ATTENDING [place] Comment: ----ADDITIONAL INFORMATION---- Estimated GFR calculated using the 2009 CKD_EPI creatinine equation. Calcium, Total, P 7.8 (L) 8.8 - 10.2 mg/dL 05/22/2021 1:39 PM ANESTHESIOLOGIST ATTENDING [place] Glucose, P 133 70 - 140 mg/dL 05/22/2021 1:39 PM ANESTHESIOLOGIST ATTENDING O TERI Albumin, P 3.8 3.5 - 5.0 g/dL 05/22/2021 1:39 PM ANESTHESIOLOGIST ATTENDING O TERI Phosphorus (Inorganic), P 4.3 2.5 - 4.5 mg/dL 05/22/19 22 4:11 PM ANESTHESIOLOGIST ATTENDING AUST Specimen Anatomical Collection Method Collection Time Receive d Time (Source) Location / / Volume Laterality Blood (Blood, 05/22/2021 10:00 05/22/2021 1:04 Venous) AM ANESTHESIOLOGIST ATTENDING PM ANESTHESIOLOGIST ATTENDING Narrative [facility] [place] [facility] - 05/22/2021 4:11 PM ANESTHESIOLOGIST ATTENDING Specimen Information: Specimen ID: [id number] Specimen Type: Blood Specimen Collection Start Date: 2 10:00 AM Specimen Received Date: 05/22/2021 ??1:04 PM Specimen ID: [id number] Specimen Type: Blood Specimen Collection Start Date: 2 10:00 AM Specimen Received Date: 05/22/2021 ??3:33 PM Louise Hussein APRN, C.N.P., D.N.P. LAB BLOOD ADD- ON Performing Organization Address City/State/ZIP Code Phon e Number [facility]- [address] [place], [place] [id number] [place] [address] [place] [address] System in [place] [address] [facility] [place] [address] [facility] [address] (ABNORMAL) CBC without Differential (05/22/2021 10:00 AM ANESTHESIOLOGIST ATTENDING) Pathuniversal health services gist Method Time Signature Hemoglobin 11.1 (L) 13.2 - 05/22/2021 FB60 16.6 g/dL 10:11 AM ANESTHESIOLOGIST ATTENDING Hematocrit 33.9 (L) 38.3 - 05/22/2021 FB60 48.6 % 10:11 AM ANESTHESIOLOGIST ATTENDING Erythrocytes 3.55 (L) 4.35 - 05/22/2021 FB60 5.65 10:11 AM ANESTHESIOLOGIST ATTENDING x10(12)/L MCV 95.5 78.2 - 05/22/2021 FB60 97.9 fL 10:11 AM ANESTHESIOLOGIST ATTENDING RBC Distrib Width 14.1 11.8 - 05/22/2021 FB60 14.5 % 10:11 AM ANESTHESIOLOGIST ATTENDING Platelet Count 248 135 - 317 05/22/2021 FB60 x10(9)/L 10:11 AM ANESTHESIOLOGIST ATTENDING Leukocytes 16.2 (H) 3.4 - 9.6 05/22/2021 FB60 x10(9)/L 10:11 AM ANESTHESIOLOGIST ATTENDING Specimen Anatomical Collection Method Collection Time Receive d Time (Source) Location / / Volume Laterality Blood (Blood, 05/22/2021 10:00 05/22/2021 Venous) AM ANESTHESIOLOGIST ATTENDING 10:01 AM ANESTHESIOLOGIST ATTENDING Louise Hussein APRN, C.N.P., D.N.P. LAB BLOOD ADD- ON Performing Organization Address City/State/ZIP Code Phon e Number [address] [place] [address] [facility] [address] [place] [address] System [address] documented in this encounter Visit Diagnoses Diagnosis Chronic Kidney Disease Stage 4 Glomerula r Filtration Rate 15-29 (HCC) - Primary Chronic Kidney Disease Stage 4 Glomerula r Filtration Rate 15-29 (HCC) documented in this encounter Additional Health Concerns Assessment Noted Time PHQ-9 Depression Total Score: 3 01/03/2018 10:38 AM CD T documented as of this encounter Care Teams Oil Distributor Tender Relationship Specialty Start Date End Date Elsewhere, Pcp PCP - General Family Medicine 01/29/20 documented as of this encounter
--- OUTSIDE RECORDS SUMMARY | 2022-04-28 14:40 | XMS_ITS | Encounter Summary ---
:1950 Author Organization [facility] Address [address] [place] [address] Care Team Providers Name Role Phone Elsewhere, Pcp Primary Care Provider Unavailable Reason for Visit Reason Comments Patient Education Encounter Details Date Type Department Care Team Description 04/08/2021 Education Department of Patient Oracio Hussein, JULIÁN, C.N.P., D.N.P. [address] [place] [address] Chronic Kidney Disease Education in Danica Hawley M.S. Stage 4 Glomerular [place], [place] Filtration Rate 15-29 [address] [facility] [place] [address] Social History Tobacco Use Types Packs/Day Years [...] How often do you attend synagogue or rastafari services? 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
--- OUTSIDE RECORDS SUMMARY | 2022-04-28 14:40 | XMS_ITS | Encounter Summary ---
:1950 Author Organization [facility] Address [address] [place] [address] Care Team Providers Name Role Phone Elsewhere, Pcp Primary Care Provider Unavailable Encounter Details Date Type Department Care Team Description 02/13/2021 Clinical Communication Division of Nephrology Weller[place] tter, and Hypertension in Hui Reddy APRNLee, [place] C.N.P., D.N.P. [address] [place] [address] Social History Tobacco Use Types Packs/Day Years [...] How often do you attend latter-day or anglican services? 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 - 02/13/2021 4:15 PM CDT Lab work from February 10, 2021 shows a creatinine worsening of 3.20 with an EGFR of 19 and a potassium is 6.0. He was seen in the [facility] in [place] on February 04, 2021. At that time [...] He will repeat his blood work in [place] on Tuesday with a creatinine and a [...] documented as of this encounter Care Teams Toby Maker Relationship Specialty Start Date End Date Elsewhere, Pcp PCP - General Family Medicine 01/29/20 documented as of this encounter
--- OUTSIDE RECORDS SUMMARY | 2022-04-28 14:40 | XMS_ITS | Encounter Summary ---
:1950 Author Organization [facility] Address [address] [place] [address] Care Team Providers Name Role Phone Elsewhere, Pcp Primary Care Provider Unavailable Encounter Details Date Type Department Care Team Description 02/10/2021 Hospital Encounter Department of Kemar Velásquez, Periphe ral Arterial Disease (HCC); Laboratory Medicine M.B.B.S. Diabetes Mellitus Type 2 With Other Circ ulatory Complication Hyperglycemic (HCC); and Pathology, [address] [place] [address] Atherosclerosis Arteriosclerosis Obliter ans Lower Extremity (HCC) [facility], in [facility] [address] [place] [phone] [place] [address] (Work) [place], [place] [phone] [address] (Fax) [phone] Social History Tobacco Use Types Packs/Day Years [...] How often do you attend moravian or lutheran services? 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 documented as of this encounter Medications at [...] City/State/ZIP Code Phon e Number [facility] - [address] [place], [place] [address] [place] [address] [place], [place] [id number] [place] [address] [address] [facility] Sodium (02/10/2021 8:27 AM CDT) P athologist Signature Sodium, S 138 135 - 145 02/10/2021 DTL mmol/L 10:06 AM CDT Specimen Anatomical Collection Method Collection Time Receive d Time (Source) Location / / Volume Laterality Blood (Blood, 02/10/2021 8:27 AM 02/11/20 21 9:07 Venous) CDT AM CDT Kemar DavidB.S. LAB BLOOD ADD-ON Performing Organization Address City/[facility]/ZIP Code Phon e Number [facility] - [address] [place] [address] (ABNORMAL) Potassium (02/10/2021 8:27 AM [...] City/State/ZIP Code Phon e Number [facility] - [address] [place] [address] [address] [facility] [place], [place] [id number] [place] [address] [place] [address] (ABNORMAL) Lipid Panel (02/10/2021 [...] City/State/ZIP Code Phon e Number [facility] - [address] [place], [place] [address] [facility] [place] [address] [facility] [address] Glucose, Fasting (02/10/2021 8:27 [...] LAB BLOOD NON ADD-ON Performing Organization Address [facility] Code Phon e Number [facility] - 200 [place], [place] [address] [facility] [place]TL [place], [place] [id number] [place] [address] (ABNORMAL) Creatinine with Estimated GFR (02/10/2021 8:27 AM CDT) Analysis Performed At Patho logist Time Signature Creatinine 3.20 (H) 0.74 - 02/10/2021 DTL 1.35 mg/dL 10:06 AM CDT eGFR-Non 19 (L) >=60 02/10/2021 DTL Black/ mL/min/BSA 10:06 AM CDT [place] Comment: ----ADDITIONAL INFORMATION---- Estimated GFR calculated using [...] Redman.S. LAB BLOOD ADD-ON Performing Organization Address City/State/[facility] Phon e Number [facility] - 200 [place], [place] [address] [facility] [place] [address] (ABNORMAL) CBC with Differential, Blood (02/10/2021 [...] City/State/ZIP Code Phon e Number [facility] - [address] [place], [place] [address] [facility] [place] [address] Laboratories[facility] [address] AST (Aspartate Aminotransferase) (02/10/2021 8:27 AM CDT) [facility] gist Method Time Signature Aspartate 18 8 - 48 02/10/2021 DTL Aminotransferase U/L 10:06 AM CDT (AST), S Specimen Anatomical Collection Method Collection Time Receive d Time (Source) Location / / Volume Laterality Blood (Blood, 02/10/2021 8:27 AM 02/11/20 21 9:07 Venous) CDT AM CDT Kemar Reyes LAB BLOOD ADD-ON Performing Organization Address City/State/ZIP Code Phon e Number [facility] - [address] [place], [place] [address] [facility] [place] [address] [facility] [address] documented in this encounter Visit Diagnoses Diagnosis Peripheral Arterial Disease (HCC) Diabetes Mellitus Type 2 With Other Circ ulatory Complication Hyperglycemic (HCC) Atherosclerosis Arteriosclerosis Obliter ans Lower Extremity (HCC) documented in this encounter Additional Health Concerns Assessment Noted Time PHQ-9 Depression Total Score: 3 01/03/2018 10:38 AM CD T documented as of this encounter Care Teams Media Buyer Relationship Specialty Start Date End Date Elsewhere, Pcp PCP - General Family Medicine 01/29/20 documented as of this encounter
--- OUTSIDE RECORDS SUMMARY | 2022-04-28 14:40 | XMS_ITS | Encounter Summary ---
:[address] [facility] Address [address] [place] [address] Care Team Providers Name Role Phone Elsewhere, Pcp Primary Care Provider Unavailable Reason for Visit Outpatient (Routine) - Closed Specialty Diagnoses / Procedures Referred By Contact Refer red To Contact Nutrition Diagnoses Chronic Kidney Disease Stage 4 Glomerular Filtration Rate 15-29 (HCC) [facility] [address] [place] [address] [phone] Referral ID Status Reason Start Date Expiration Date Visits Requ ested Visits Authorized [id number] Closed 03/26/2021 03/26/2022 1 1 Encounter Details Date Type Department Care Team Description 04/08/2021 Virtual Visit Department of Celeste Hussein APRN, C.N.P., D.N.P. [address] [place] [phone] Chronic Kidney Nutrition in Bere Alvarez M.S., RDN, LD Disease Stage 4 [place], [place] Glomerular Filtration [address] [facility] Rate 15-29 (HCC) [place] [phone] Social History Tobacco Use Types Packs/Day Years [...] How often do you attend restoration or anglican services? 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 encounter Last Filed Vital Signs Vital Sign Reading Time Taken Comments Blood Pressure - - Pulse - - Temperature - - Respiratory Rate - - Oxygen Saturation - - Inhaled Oxygen Concentration - - Weight 84.4 kg (186 lb 1.1 oz) 04/08/2021 8:04 AM INSTALLATION ENGINEER Height 175 cm (5' 8.9) 04/08/2021 8:05 AM INSTALLATION ENGINEER Body Mass Index 27.56 04/08/2021 8:04 AM INSTALLATION ENGINEER documented in this encounter Progress Notes Bere Alvarez M.S., OWEN, ADELAIDA - 04/08/2021 8:00 AM CST CHIEF COMPLAINT/REASON FOR VISIT Chronic kidney disease HISTORY OF PRESENT ILLNESS Visited with patient and spouse on speaker phone. Consult conducted via real- time audio technology by Maritza Alvarez, MS, OWEN, LD in [facility] to the patient's home. ASSESSMENT Relevant [...] per day Method to Estimate Energy Needs: [place] BEE (Basal): 1637 HB Adjusted: 1801 Total Calorie Needs: 4053-3585 calories NUTRITION DIAGNOSIS Food- and nutrition-related knowledge deficit related to no prior exposure to specific nutritional guidelines for chronic kidney disease as evidenced by questions asked. Nutrition Prescription/Recommendation 4308-2194 mg sodium, 65-75 grams protein, low potassium INTERVENTION Education: Discussed the importance of a kidney friendly diet low in sodium, adequate without excessive protein along with low potassium intake. MONITORING AND EVALUATION: Nutrition parameter to monitor: Food intake Desired Outcome: Maintain nutrition related lab values within target range Patient Goal(s): 1. 3863-2439 mg sodium 2. 65-75 gm protein 3. Select lower potassium foods most often 4. Avoid processed food FOLLOW UP PLAN: Encouraged follow up questions via patient online services. Time spent with patient (minutes): 30 ALLATION ENGINEER documented in this encounter Plan of Treatment Not on filedocumented as of this encounter Visit Diagnoses Diagnosis Chronic Kidney Disease Stage 4 Glomerula r Filtration Rate 15-29 (HCC) documented in this encounter Additional Health Concerns Assessment Noted Time PHQ-9 Depression Total Score: 3 01/03/2018 10:38 AM CD T documented as of this encounter Care Teams Credit Report Checker Relationship Specialty Start Date End Date Elsewhere, Pcp PCP - General Family Medicine 01/29/20 documented as of this encounter
--- OUTSIDE RECORDS SUMMARY | 2022-04-28 14:40 | XMS_ITS | Encounter Summary ---
:1950 Author Organization [facility] Address [address] [place] [address] Care Team Providers Name Role Phone Elsewhere, Pcp Primary Care Provider Unavailable Reason for Visit Reason Comments Labs Only Encounter Details Date Type Department Care Team Description 03/09/2021 Clinical Communication Division of Nephrology Trisha Peters, Labs Only and Hypertension [place] [address] [facility] [address] [place] [phone] Social History Tobacco Use Types Packs/Day Years [...] How often do you attend yazidi or pentecostalism services? 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 - 03/09/2021 11:46 AM CDT Labs completed at: [facility] Fax: Date Collected 02/25/21 CBC [...] as of this encounter Care Teams Application Support Lead Relationship Specialty Start Date End Date Elsewhere, Pcp PCP - General Family Medicine 01/29/20 documented as of this encounter
--- OUTSIDE RECORDS SUMMARY | 2022-04-28 14:40 | XMS_ITS | Encounter Summary ---
:1950 Author Organization [facility] Address [address] [place] [address] Care Team Providers Name Role Phone Elsewhere, Pcp Primary Care Provider Unavailable Reason for Referral Outpatient (Routine) - Closed Specialty Diagnoses / Procedures Referred By Contact Refer red To Contact Diagnoses Peripheral Arterial Disease (HCC) Diabetes Mellitus Type 2 With Other Circulatory Complication Hyperglycemic (HCC) 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) Kemar Velásquez M.B.B.S. [facility] Procedures US Lower Extremity Arteries Bilateral [address] [place] [address] Referral ID Status Reason Start Date Expiration Date Visits Requ ested Visits Authorized [id number] Closed 08/04/2020 08/04/2021 1 1 Reason for Visit Outpatient (Routine) - Closed Specialty Diagnoses / Procedures Referred By Contact Refer red To Contact Diagnoses Peripheral Arterial Disease (HCC) Diabetes Mellitus Type 2 With Other Circulatory Complication Hyperglycemic (HCC) 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) Kemar Velásquez M.B.B.S. [facility] Procedures US Lower Extremity Arteries Bilateral [address] [place] [address] Referral ID Status Reason Start Date Expiration Date Visits Requ ested Visits Authorized [id number] Closed 08/04/2020 08/04/2021 1 1 Encounter Details Date Type Department Care Team Description 02/06/2021 Hospital Encounter Department of Kemar Velásquez Periphe ral Arterial Disease (HCC); Radiology, Santiago Reyes Diabetes Mellitus Type 2 With Other Circ ulatory Complication Hyperglycemic (HCC); Building, in [address] [place] [address] Atherosclerosis Arteriosclerosis Obliter ans Lower Extremity (HCC) [facility] [address] 200 [facility] [phone] [place], [place] (Work) [phone] [phone] Social History Tobacco Use Types Packs/Day Years [...] How often do you attend confucianism or oriental orthodox services? Never 03/25/2021 Do [...] the highest level of school Associate degree: migdlaia muller, 04/30/2019 you have completed or the highest technical, or vocational p senthilram degree you have received? 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
--- OUTSIDE RECORDS SUMMARY | 2022-04-28 14:40 | XMS_ITS | Encounter Summary ---
:1950 Author Organization [facility] Address [address] [place] [address] Care Team Providers Name Role Phone Elsewhere, Pcp Primary Care Provider Unavailable Reason for Referral Outpatient (Routine) - Closed Specialty Diagnoses / Procedures Referred By Contact Refer red To Contact Diagnoses Follow Up Exam Peripheral Arterial Disease (HCC) Diabetes Mellitus Type 2 With Other Circulatory Complication Hyperglycemic (HCC) 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) Kemar Velásquez M.B.B.S. [place] [facility] Procedures US Aorta Iliac Arteries Left with Doppler [address] [place] [address] Referral ID Status Reason Start Date Expiration Date Visits Requ ested Visits Authorized [id number] Closed 08/04/2020 08/04/2021 1 1 Reason for Visit Outpatient (Routine) - Closed Specialty Diagnoses / Procedures Referred By Contact Refer red To Contact Diagnoses Follow Up Exam Peripheral Arterial Disease (HCC) Diabetes Mellitus Type 2 With Other Circulatory Complication Hyperglycemic (HCC) 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) Kemar Velásquez M.B.B.S. [facility] Procedures US Aorta Iliac Arteries Left with Doppler [address] [place] [address] Referral ID Status Reason Start Date Expiration Date Visits Requ ested Visits Authorized [id number] Closed 08/04/2020 08/04/2021 1 1 Encounter Details Date Type Department Care Team Description 02/06/2021 Hospital Encounter Department of Kemar Velásquez, Follow Up Exam ; Radiology, Santiago Reyes Peripheral Arterial Disease (HCC); [facility], in [address] [place] [address] Diabetes Mellitus Type 2 With Other Circ ulatory Complication Hyperglycemic (HCC); [place], [place] Atherosclerosi s Arteriosclerosis Obliterans Lower Extremity (HCC); [place] [address] Follow Up Exam 200 [facility] [phone] [place], [place] (Work) [phone] Social History Tobacco Use Types Packs/Day Years [...] How often do you attend adventism or jainism services? 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
--- OUTSIDE RECORDS SUMMARY | 2022-04-28 14:40 | XMS_ITS | Encounter Summary ---
:1950 Author Organization [facility] Address [address] [place] [address] Care Team Providers Name Role Phone Elsewhere, Pcp Primary Care Provider Unavailable Encounter Details Date Type Department Care Team Description 05/22/2021 Hospital Encounter Department of Louise Hussein Kidney Laboratory Medicine JULIÁN Narayanan C.N.PFei, Dise ase Stage 4 in Marni Phillips Glomerular [place] [address] [facility] Filtration Rate [address] [place], [place] 15-29 ([facility] [phone] Social History Tobacco Use Types Packs/Day Years [...] How often do you attend baptism or episcopal services? Never 03/25/2021 Do you [...] at Date Recorded Male 03/24/2021 8:13 PM OBIEE ARCHITECT documented as of this encounter Medications at [...] Chronic Kidney Res ults for this AM OBIEE ARCHITECT Disease Stage 4 procedure ar e in Glomerular the results Filtration Rate section. (HCC) URINALYSIS WITH Routine 05/22/2021 10:05 Chronic Kidney Result s for this MICROSCOPIC AM OBIEE ARCHITECT Disease Stage 4 procedure ar e in Glomerular the results Filtration Rate section. (HCC) documented in this encounter Results (ABNORMAL) Albumin, Random, Urine (05/22/2021 10:05 AM OBIEE ARCHITECT) [facility] Method Time Signature Microalbumin 594.0 mg/L 05/22/2021 OWAT 2:04 PM OBIEE ARCHITECT Creatinine 39 mg/dL 05/22/2021 OWAT 1:44 PM OBIEE ARCHITECT Albumin/Creatinin 1523 (H) <17 mg/g 05/22/2021 OWAT e Ratio 2:04 PM OBIEE ARCHITECT Specimen Anatomical Collection Method Collection Time Receive d Time (Source) Location / / Volume Laterality Urine (Urine, 05/22/2021 10:05 05/22/2021 1:04 Clean Catch) AM OBIEE ARCHITECT PM OBIEE ARCHITECT Louise Hussein APRN, C.N.P., D.N.P. LAB URINE NATALYE XAVIER Performing Organization Address City/State/ZIP Code Phon e Number [facility] [address] [place] [address] [place] [address] System in [place] [address] (ABNORMAL) Urinalysis with Microscopic: Urine, Midstream (05/22/2021 10:05 AM OBIEE ARCHITECT) Analysis Performed At Patho logist Time Signature Source Urine, Urine, 05/22/2021 FB60 Midstream 10:06 AM OBIEE ARCHITECT Clarity Clear Clear 05/22/2021 FB60 10:10 AM OBIEE ARCHITECT Color Yellow 05/22/2021 FB60 10:10 AM OBIEE ARCHITECT Comment: ----REFERENCE VALUE---- Colorless Yellow Cha Blood Trace (A) Negative 05/22/2021 10:10 AM OBIEE ARCHITECT FB60 Nitrite Negative Negative 05/22/2021 10:10 AM OBIEE ARCHITECT FB60 Leukocyte Esterase Negative Negative 05/22/2021 10:[address] FB60 Protein 100 (A) mg/dL 05/22/2021 10:10 AM OBIEE ARCHITECT FB60 Comment: ----REFERENCE VALUE---- Negative Trace Glucose Negative Negative mg/dL 05/22/2021 10:10 AM OBIEE ARCHITECT F B60 Ketones, QI(U) Negative Negative mg/dL 05/22/2021 10:10 AM OBIEE ARCHITECT FB60 Bilirubin Negative Negative 05/22/2021 10:10 AM OBIEE ARCHITECT FB60 pH 5.5 5.0 - 8.0 05/22/2021 10:10 AM OBIEE ARCHITECT FB60 Specific [place] 1.015 1.001 - 1.035 05/22/2021 10:10 AM OBIEE ARCHITECT FB60 Urobilinogen 0.2 0.2 - 1.0 mg/dL 05/22/2021 10:[address] FB60 White Blood Cells None Seen /hpf 05/22/2021 10:50 AM CS T FB60 Comment: ----REFERENCE VALUE---- Males: 0-3 Females: 0-10 Unknown: 0-10 Red Blood Cells None Seen 0 - 2 /hpf 05/22/2021 10:50 AM OBIEE ARCHITECT FB60 Squamous Cells 4-10 /hpf 05/22/2021 10:50 AM OBIEE ARCHITECT F B60 Specimen Anatomical Collection Method Collection Time Receive d Time (Source) Location / / Volume Laterality Urine (Urine, 05/22/2021 10:05 05/22/2021 Midstream) AM OBIEE ARCHITECT 10:05 AM OBIEE ARCHITECT Louise Hussein APRN, C.N.P., D.N.P. LAB URINE [place] Performing Organization Address City/State/ZIP Code Phon e Number [address] [place] [address] [facility] [address] [place] [address] System in [address] documented in this encounter Visit Diagnoses Diagnosis Chronic Kidney Disease Stage 4 Glomerula r Filtration Rate 15-29 (HCC) documented in this encounter Additional Health Concerns Assessment Noted Time PHQ-9 Depression Total Score: 3 01/03/2018 10:38 AM CD T documented as of this encounter Care Teams Estate Administrator Relationship Specialty Start Date End Date Elsewhere, Pcp PCP - General Family Medicine 01/29/20 documented as of this encounter
--- OUTSIDE RECORDS SUMMARY | 2022-04-28 14:40 | XMS_ITS | Encounter Summary ---
:1950 Author Organization [facility] Address [address] [place] [address] Care Team Providers Name Role Phone Elsewhere, Pcp Primary Care Provider Unavailable Reason for Visit Outpatient (Routine) - Closed Specialty Diagnoses / Procedures Referred By Contact Refer red To Contact Diagnoses Peripheral Arterial Disease (HCC) Diabetes Mellitus Type 2 With Other Circulatory Complication Hyperglycemic (HCC) 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) Kemar Velásquez M.B.B.S. [facility] Procedures Lower Extremity Arterial (MIMI) - Standard Protocol Lower Extremity Arterial (MIMI) - Exercise (Claudication) [address] [place] [address] Referral ID Status Reason Start Date Expiration Date Visits Requ ested Visits Authorized [id number] Closed 08/04/2020 08/04/2021 1 1 Encounter Details Date Type Department Care Team Description 02/06/2021 Hospital Encounter Department of Kemar Velásquez, Katherine ral Arterial Disease (HCC); Vascular Medicine M.B.B.S. Diabetes Mellitus Type 2 With Other Circ ulatory Complication Hyperglycemic (HCC); in [place], [address] [facility] Atherosclerosis Arteriosclerosis Obliter ans Lower Extremity (HCC) [place], [place] [address] [facility] [address] [place], [place] [phone] (Work) [phone] Social History Tobacco Use Types Packs/Day Years [...] How often do you attend temple or christian services? 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
--- OUTSIDE RECORDS SUMMARY | 2022-04-28 14:40 | XMS_ITS | Encounter Summary ---
:1950 Author Organization [facility] Address [address] [place] [address] Care Team Providers Name Role Phone Elsewhere, Pcp Primary Care Provider Unavailable Encounter Details Date Type Department Care Team Description 03/26/2021 Orders Only [facility] P[facility] Sa barbara Jean M.D. [address] [place], [place] [phone] (Wo rk) Social History [...] How often do you attend restorationist or mosque services? 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
--- OUTSIDE RECORDS SUMMARY | 2022-04-28 14:40 | XMS_ITS | Encounter Summary ---
:1950 Author Organization [facility] Address [address] [place] [address] Care Team Providers Name Role Phone Elsewhere, Pcp Primary Care Provider Unavailable Reason for Visit Outpatient (Routine) - Closed Specialty Diagnoses / Procedures Referred By Contact Refer red To Contact Vascular Medicine Diagnoses Peripheral Arterial Disease (HCC) Diabetes Mellitus Type 2 With Other Circulatory Complication Hyperglycemic (HCC) 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) [facility] [address] [place] [address] Referral ID Status Reason Start Date Expiration Date Visits Requ ested Visits Authorized [id number] Closed 08/04/2020 08/04/2021 1 1 Encounter Details Date Type Department Care Team Description 02/10/2021 Comprehensive Visit Department of [facility], Follow Up Examination Status Post Surgery (Primary Dx); Vascular Medicine Jayjay A, Peripheral Arterial Disease (HCC); in [place], P.A.-C. Diabetes Mellitus Type 2 With Other Circ ulatory Complication Hyperglycemic (HCC); [place] 200 [facility] Hypertensive Chronic Kidney Disease (CKD ) Stage 3b Glomerular Filtration Rate (GFR) 30 To 44 (HCC) [address] [place] [address] [phone] Social History Tobacco Use Types Packs/Day Years [...] often do you attend latter day or christian services? 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 - 02/10/2021 10:30 AM CDT REFERRAL SOURCE Kemar Velásquez M.B.B.S. [address] [place] [address] SUBJECTIVE CHIEF COMPLAINT / REASON FOR VISIT [...] documented as of this encounter Care Teams Centrifugal Separator Relationship Specialty Start Date End Date Elsewhere, Pcp PCP - General Family Medicine 01/29/20 documented as of this encounter
--- OUTSIDE RECORDS SUMMARY | 2022-04-28 14:40 | XMS_ITS | Encounter Summary ---
:1950 Author Organization [facility] Address [address] [place] [address] Care Team Providers Name Role Phone Elsewhere, Pcp Primary Care Provider Unavailable Encounter Details Date Type Department Care Team Description 05/22/2021 Hospital Encounter Department of Louise Hussein Kidney Laboratory Medicine JULIÁN Narayanan C.N.PFei, Dise ase Stage 4 in Marni Phillips Glomerular [place] [address] [facility] Filtration Rate [address] [place], [place] 15-29 ([facility]) [place] [id number] Social History Tobacco Use Types Packs/Day Years [...] How often do you attend sikh or yazdanism services? 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 ([facility]) CYSTATIN C WITH EGFR Routine 05/22/2021 10:00 Chronic Kidney R esults for this AM LATHE OPERATOR Disease Stage 4 procedure ar e in Glomerular the results Filtration Rate section. ([facility]) IRON AND TOT Routine 05/22/2021 10:00 Chronic Kidney Results f or this IRON-BINDING AM LATHE OPERATOR Disease Stage 4 procedure ar e in CAPACITY, S/P Glomerular the results Filtration Rate section. (HCC) HBC TOTAL AB, SERUM Routine 05/22/2021 10:00 Chronic Kidney Re sults for this AM LATHE OPERATOR Disease Stage 4 procedure ar e in Glomerular the results Filtration Rate section. 15-29 (HCC) HBS ANTIBODY, SERUM Routine 05/22/2021 10:00 Chronic Kidney Re sults for this AM LATHE OPERATOR Disease Stage 4 procedure ar e in Glomerular the results Filtration Rate section. 15- (HCC) HEPATITIS B SURFACE Routine 05/22/2021 10:00 Chronic Kidney Re sults for this ANTIGEN AM LATHE OPERATOR Disease Stage 4 procedure ar e in Glomerular the results Filtration Rate section. (HCC) CBC WITHOUT Routine 05/22/2021 10:00 Chronic Kidney Results f or this DIFFERENTIAL, B AM LATHE OPERATOR Disease Stage 4 procedure are in Glomerular the results Filtration Rate section. (HCC) PARATHYROID HORMONE Routine 05/22/2021 10:00 Chronic Kidney Re sults for this (PTH), S AM LATHE OPERATOR Disease Stage 4 procedure ar e in Glomerular the results Filtration Rate section. (HCC) FERRITIN, S Routine 05/22/2021 10:00 Chronic Kidney Results f or this AM LATHE OPERATOR Disease Stage 4 procedure ar e in Glomerular the results Filtration Rate section. (HCC) documented in this encounter Results (ABNORMAL) Iron and Total Iron-Binding Capacity (05/22/2021 10:00 AM LATHE OPERATOR) P athologist Signature Iron 58 50 - 150 05/22/2021 [place] mcg/dL 4:02 PM LATHE OPERATOR Total Iron 221 (L) 250 - 400 05/22/2021 [place] Binding mcg/dL 4:02 PM LATHE OPERATOR Capacity Percent 26 14 - 50 % 05/22/2021 [place] Saturation 4:02 PM LATHE OPERATOR Specimen Anatomical Collection Method Collection Time Receive d Time (Source) Location / / Volume Laterality Blood (Blood, 05/22/2021 10:00 05/22/2021 3:33 Venous) AM LATHE OPERATOR PM LATHE OPERATOR Louise Hussein APRN, C.N.P., D.N.P. LAB BLOOD ADD- ON Performing Organization Address City/State/ZIP Code Phon e Number [facility]- [address] [place] [address] [facility] [facility] [place] [facility] [place], [place] [id number] [place] [address] Ferritin (05/22/2021 10:00 AM LATHE OPERATOR) athologist Signature Ferritin, S 120 31 - 409 05/22/2021 [facility] mcg/L 1:50 PM LATHE OPERATOR Comment: Biotin has been identified by the lauryn currie as a potential interfering substance. ??Higher concentr ations of biotin may be found in multivitamins, hair/nail supple ments, and workout supplements. ??If the result does not ma [facility] clinical observations, repeat testing after patient refrains fr om the use of supplements for at least 12 hours. Specimen Anatomical Collection Method Collection Time Receive d Time (Source) Location / / Volume Laterality Blood (Blood, 05/22/2021 10:00 05/22/2021 1:03 Venous) AM LATHE OPERATOR PM LATHE OPERATOR Louise Hussein APRN C.N.P., D.N.P. LAB BLOOD ADD- ON Performing Organization Address City/[facility] Code Phon e Number [facility]- [address] [place] [address] [place] [address] System in [place] [address] [facility] HBs Antibody, Serum (05/22/2021 10:00 AM LATHE OPERATOR) athologist Signature HBs Antibody, Negative 05/22/2021 [place] S 4:45 PM LATHE OPERATOR Comment: ----REFERENCE VALUE---- Unvaccinated: Negative Vaccinated: Positive HBs Antibody, Quantitative, S <3.5 mIU/mL 05/22/2021 4:45 PM LATHE OPERATOR [place] Comment: ----REFERENCE VALUE---- <8.50: Negative 8.50-11.49: Indeterminate >=11.50: Positive Specimen Anatomical Collection Method Collection Time Receive d Time (Source) Location / / Volume Laterality Blood (Blood, 05/22/2021 10:00 05/22/2021 3:33 Venous) AM LATHE OPERATOR PM LATHE OPERATOR Louise Hussein APRN, C.N.P., D.N.P. LAB MICROBIOLO GY - BLOOD ORDERABLES Performing Organization Address City/[facility]/ZIP Code Phon e Number [facility]- [address] [place] [address] [place] [place] [address] [facility] [address] HBc Total Ab, Serum (05/22/2021 10:00 AM LATHE OPERATOR) P athologist Signature HBc Total Ab, Negative Negative 05/23/2021 [facility] S 9:56 AM LATHE OPERATOR Specimen Anatomical Collection Method Collection Time Receive d Time (Source) Location / / Volume Laterality Blood (Blood, 05/22/2021 10:00 05/23/2021 8:42 Venous) AM LATHE OPERATOR AM LATHE OPERATOR William Lopez APRN.N.P., D.N.P. LAB MICROBIOLO GY - BLOOD ORDERABLES Performing Organization Address [facility] Code Phon e Number [facility] [address] [place], [place] [address] SUPPORT CENTER [facility] [place] [address] Laboratory Medicine and Pathology [address] [place] [address] Dr. RAIN Hepatitis B Surface Antigen (05/22/2021 10:00 AM LATHE OPERATOR) [facility] gist Method Time Signature HBs Antigen, Nonreactive Nonreactive 05/22/2021 [facility] S 4:45 PM LATHE OPERATOR Comment: Biotin has been identified by the lauryn currie as a potential interfering substance. ??Higher concentr ations of biotin may be found in multivitamins, hair/nail supple ments, and workout supplements. ??If the result does not ma [facility] clinical observations, repeat testing after patient refrains fr om the use of supplements for at least 12 hours. Specimen Anatomical Collection Method Collection Time Receive d Time (Source) Location / / Volume Laterality Blood (Blood, 05/22/2021 10:00 05/22/2021 3:33 Venous) AM LATHE OPERATOR PM LATHE OPERATOR Louise Hussein APRN, C.N.P., D.N.P. LAB MICROBIOLO GY - BLOOD ORDERABLES Performing Organization Address City/[facility] Code Phon e Number [facility]- [address] [place] [address] [facility] [place] [address] [facility] [address] (ABNORMAL) Cystatin C with Estimated GFR, S (05/22/2021 10:00 AM LATHE OPERATOR) P athologist Signature eGFR by 19 (L) >60 05/23/2021 [facility] Cystatin C mL/min/BSA 7:05 AM LATHE OPERATOR Comment: Estimated GFR calculated using the [...] 0.67 - 1.21 mg/L 05/23/2021 7:05 AM LATHE OPERATOR DTL Specimen Anatomical Collection Method Collection Time Receive d Time (Source) Location / / Volume Laterality Blood (Blood, 05/22/2021 10:00 05/23/2021 6:48 Venous) AM LATHE OPERATOR AM LATHE OPERATOR Louise Hussein APRN, C.N.P., D.N.P. LAB BLOOD ADD- ON Performing Organization Address City/State/ZIP Code Phon e Number [facility] - [address] [place], [place] [address] [place] [address] [facility] [address] (ABNORMAL) Parathyroid Hormone (PTH) (05/22/2021 10:00 AM LATHE OPERATOR) Analysis Performed At Patho logist Time Signature Parathyroid 260 (H) 15 - 65 05/22/2021 [place] Hormone (PTH), S pg/mL 4:17 PM LATHE OPERATOR Comment: Biotin has been identified by the lauryn cturer as a potential interfering substance. ??Higher concentr ations of biotin may be found in multivitamins, hair/nail supple ments, and workout supplements. ??If the result does not ma [facility] clinical observations, repeat testing after patient refrains fr om the use of supplements for at least 12 hours. Specimen Anatomical Collection Method Collection Time Receive d Time (Source) Location / / Volume Laterality Blood (Blood, 05/22/2021 10:00 05/22/2021 3:33 Venous) AM LATHE OPERATOR PM LATHE OPERATOR Jennifer Lopez APRNNChucho, D.N.PFei LAB BLOOD ADD- ON Performing Organization Address City/State/ZIP Code Phon e Number [facility]- [address] [place] [address] [facility] [place] [address] [facility] [address] (ABNORMAL) Renal Function Panel (05/22/2021 10:00 AM LATHE OPERATOR) Analysis Performed At Patho logist Time Signature Potassium, P 4.7 3.6 - 5.2 05/22/2021 [place] mmol/L 1:39 PM LATHE OPERATOR Sodium, P 137 135 - 145 05/22/2021 [place] mmol/L 1:39 PM LATHE OPERATOR Chloride, P 104 98 - 107 05/22/2021 [place] mmol/L 1:39 PM LATHE OPERATOR Bicarbonate, P 23 22 - 29 05/22/2021 [place] mmol/L 1:39 PM LATHE OPERATOR Anion Gap, P 10 7 - 15 05/22/2021 [place] 1:39 PM LATHE OPERATOR BUN (Blood Urea 36 (H) 8 - 24 05/22/2021 [place] Nitrogen), P mg/dL 1:39 PM LATHE OPERATOR Creatinine 2.59 (H) 0.74 - 05/22/2021 [place] 1.35 mg/dL 1:39 PM LATHE OPERATOR eGFR-Black/Afri 28 (L) >=60 05/22/2021 [place] can [place] mL/min/BSA 1:39 PM LATHE OPERATOR Comment: ----ADDITIONAL INFORMATION---- Estimated GFR calculated using the 2009 CKD_EPI creatinine equation. eGFR Non-Black/ 24 (L) >=60 mL/min/BSA 05/22/2021 1:39 PM LATHE OPERATOR [place] Comment: ----ADDITIONAL INFORMATION---- Estimated GFR calculated using the 2009 CKD_EPI creatinine equation. Calcium, Total, P 7.8 (L) 8.8 - 10.2 mg/dL 05/22/2021 1:39 PM LATHE OPERATOR [place] Glucose, P 133 70 - 140 mg/dL 05/22/2021 1:39 PM LATHE OPERATOR O TERI Albumin, P 3.8 3.5 - 5.0 g/dL 05/22/2021 1:39 PM LATHE OPERATOR O TERI Phosphorus (Inorganic), P 4.3 2.5 - 4.5 mg/dL 05/22/19 4:11 PM LATHE OPERATOR [place] Specimen Anatomical Collection Method Collection Time Receive d Time (Source) Location / / Volume Laterality Blood (Blood, 05/22/2021 10:00 05/22/2021 1:04 Venous) AM LATHE OPERATOR PM LATHE OPERATOR Narrative [facility] [place] [facility] - 05/22/2021 4:11 PM LATHE OPERATOR Specimen Information: Specimen ID: [id number] Specimen Type: Blood Specimen Collection Start Date: 2 10:00 AM Specimen Received Date: 05/22/2021 ??1:04 PM Specimen ID: [id number] Specimen Type: Blood Specimen Collection Start Date: 2 10:00 AM Specimen Received Date: 05/22/2021 ??3:33 PM Louise Hussein APRN, C.N.P., D.N.P. LAB BLOOD ADD- ON Performing Organization Address City/State/ZIP Code Phon e Number [facility]- [address] [place] [address] [place] [address] System in [place] [address] [facility] [place] [address] [facility] [address] (ABNORMAL) CBC without Differential (05/22/2021 10:00 AM LATHE OPERATOR) [facility] gist Method Time Signature Hemoglobin 11.1 (L) 13.2 - 05/22/2021 FB60 16.6 g/dL 10:11 AM LATHE OPERATOR Hematocrit 33.9 (L) 38.3 - 05/22/2021 FB60 48.6 % 10:11 AM LATHE OPERATOR Erythrocytes 3.55 (L) 4.35 - 05/22/2021 FB60 5.65 10:11 AM LATHE OPERATOR x10(12)/L MCV 95.5 78.2 - 05/22/2021 FB60 97.9 fL 10:11 AM LATHE OPERATOR RBC Distrib Width 14.1 11.8 - 05/22/2021 FB60 14.5 % 10:11 AM LATHE OPERATOR Platelet Count 248 135 - 317 05/22/2021 FB60 x10(9)/L 10:11 AM LATHE OPERATOR Leukocytes 16.2 (H) 3.4 - 9.6 05/22/2021 FB60 x10(9)/L 10:11 AM LATHE OPERATOR Specimen Anatomical Collection Method Collection Time Receive d Time (Source) Location / / Volume Laterality Blood (Blood, 05/22/2021 10:00 05/22/2021 Venous) AM LATHE OPERATOR 10:01 AM LATHE OPERATOR Louise Hussein APRN, C.N.P., D.N.P. LAB BLOOD ADD- ON Performing Organization Address City/State/ZIP Code Phon e Number [place] [address] [place], [place] [phone] [place] [address] LAB [address] [place] [address] System [address] documented in this encounter Visit Diagnoses Diagnosis Chronic Kidney Disease Stage 4 Glomerula r Filtration Rate 15-29 (HCC) documented in this encounter Additional Health Concerns Assessment Noted Time PHQ-9 Depression Total Score: 3 01/03/2018 10:38 AM CD T documented as of this encounter Care Teams Inside Sales Person Relationship Specialty Start Date End Date Elsewhere, Pcp PCP - General Family Medicine 01/29/20 documented as of this encounter
--- OUTSIDE RECORDS SUMMARY | 2022-04-28 14:41 | XMS_ITS | Encounter Summary ---
:1950 Author Organization [facility] Address [address] [place] [address] Care Team Providers Name Role Phone Elsewhere, Pcp Primary Care Provider Unavailable Reason for Visit Reason Comments medication clarification Encounter Details Date Type Department Care Team Description 10/01/2020 Clinical Division of Sinan, medication Communication Nephrology and robert Toscano Jr. on Hypertension in [place], [place] [address] [facility] [address] [place] [phone] Social History Tobacco Use Types Packs/Day Years [...] How often do you attend yazidi or scientologist services? 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 He would like you to call him with recommendations going forward. His number is [phone]. Thanks documented in this encounter Plan of Treatment Not on filedocumented as of this encounter Visit Diagnoses Not on filedocumented in this encounter Additional Health Concerns Assessment Noted Time PHQ-9 Depression Total Score: 3 01/03/2018 10:38 AM CD T documented as of this encounter Care Teams Supervisor Detasseling Crew Relationship Specialty Start Date End Date Elsewhere, Pcp PCP - General Family Medicine 01/29/20 documented as of this encounter
--- OUTSIDE RECORDS SUMMARY | 2022-04-28 14:41 | XMS_ITS | Encounter Summary ---
:1950 Author Organization [facility] Address [address] [place] [address] Care Team Providers Name Role Phone Elsewhere, Pcp Primary Care Provider Unavailable Reason for Visit Reason Comments Med Refill Encounter Details Date Type Department Care Team Description 08/21/2020 Refill Department of Family Medicine, Bambi Adler Med Refill [facility], in Renee Phillips M.D. [place] [address] [place] [address] [place] [address] [phone] Social History Tobacco Use Types Packs/Day Years [...] How often do you attend yazidism or jehovah's witness services? 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
--- OUTSIDE RECORDS SUMMARY | 2022-04-28 14:41 | XMS_ITS | Encounter Summary ---
:1950 Author Organization [facility] Address [address] [place] [address] Care Team Providers Name Role Phone Elsewhere, Pcp Primary Care Provider Unavailable Encounter Details Date Type Department Care Team Description 07/16/2020 Orders Only [facility] Sa barbara Jean M.D. [address] [place], [place] [phone] (Wo rk) Social History [...] How often do you attend jewish or zoroastrian services? 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
--- OUTSIDE RECORDS SUMMARY | 2022-04-28 14:41 | XMS_ITS | Encounter Summary ---
:1950 Author Organization [facility] Address [address] [place] [address] Care Team Providers Name Role Phone Elsewhere, Pcp Primary Care Provider Unavailable Encounter Details Date Type Department Care Team Description 08/04/2020 Hospital Encounter Department of Kemar Velásquez [facility] Arterial Radiology, [place] DavidB.S. Disease (HCC) Building, in [address] [place] [address] [place], [place] [phone] (Work) [phone] Social History Tobacco Use Types Packs/Day Years [...] How often do you attend hindu or rastafarian services? 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 Stable elevated velocities of the right SUPERVISOR WHEEL SHOP without focal stenosis. 3. Stable stented left SFA without steno sis. 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 4. New high-grade stenosis of the left p roximal TOBACCO GRADER. Narrative 08/04/2020 10:59 AM CDT EXAM: US [...] osis. Stable elevated velocities of the right SUPERVISOR WHEEL SHOP without focal stenosis. 3. Stable stented left SFA without steno sis. 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 4. New high-grade stenosis of the left p roximal TOBACCO GRADER. Kemar ETIENNE US PROCEDURES documented in this encounter Visit Diagnoses Diagnosis Peripheral Arterial Disease (HCC) documented in this encounter Additional Health Concerns Assessment Noted Time PHQ-9 Depression Total Score: 3 01/03/2018 10:38 AM CD T documented as of this encounter Care Teams Group Exercise Manager Relationship Specialty Start Date End Date Elsewhere, Pcp PCP - General Family Medicine 01/29/20 documented as of this encounter
--- OUTSIDE RECORDS SUMMARY | 2022-04-28 14:41 | XMS_ITS | Encounter Summary ---
:1950 Author Organization [facility] Address [address] [place] [address] Care Team Providers Name Role Phone Elsewhere, Pcp Primary Care Provider Unavailable Reason for Referral Outpatient (Routine) - Closed Specialty Diagnoses / Procedures Referred By Contact Refer red To Contact Diagnoses Peripheral Arterial Disease (HCC) Kemar Velásquez M.B.B.S. [facility] Procedures Lower Extremity Arterial (MIMI) - TCPO2 (Wound) [address] [place] [address] Referral ID Status Reason Start Date Expiration Date Visits Requ ested Visits Authorized [id number] Closed 09/17/2019 09/16/2020 1 1 Reason for Visit Outpatient (Routine) - Closed Specialty Diagnoses / Procedures Referred By Contact Refer red To Contact Diagnoses Peripheral Arterial Disease (HCC) Kemar Velásquez M.B.B.S. [facility] Procedures Lower Extremity Arterial (MIMI) - TCPO2 (Wound) [address] [place] [address] Referral ID Status Reason Start Date Expiration Date Visits Requ ested Visits Authorized [id number] Closed 09/17/2019 09/16/2020 1 1 Encounter Details Date Type Department Care Team Description 08/04/2020 Hospital Encounter Department of Kemar Velásquez Periphe ral Arterial Vascular Medicine in M.BeataB.S. Disease ([facility]) [place], [place] [address] [facility] [address] [place] [address] [phone] Social History Tobacco Use Types Packs/Day Years [...] How often do you attend scientology or yarsanism services? 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 Kemar Reyes CV VASCULAR PROCEDURES documented in this encounter Visit Diagnoses Diagnosis Peripheral Arterial Disease (HCC) documented in this encounter Additional Health Concerns Assessment Noted Time PHQ-9 Depression Total Score: 3 01/03/2018 10:38 AM CD T documented as of this encounter Care Teams C4 Planner Relationship Specialty Start Date End Date Elsewhere, Pcp PCP - General Family Medicine 01/29/20 documented as of this encounter
--- OUTSIDE RECORDS SUMMARY | 2022-04-28 14:41 | XMS_ITS | Encounter Summary ---
:1950 Author Organization [facility] Address [address] [place] [address] Care Team Providers Name Role Phone Elsewhere, Pcp Primary Care Provider Unavailable Reason for Visit Appointment Request (Routine) - Closed Specialty Diagnoses / Procedures Referred By Contact Refer red To Contact Nephrology and Hypertension Referral ID Status Reason Start Date Expiration Date Visits Requ ested Visits Authorized [id number] Closed 01/01/2021 01/01/2022 1 1 Encounter Details Date Type Department Care Team Description 02/04/2021 External Division of [facility] Chronic Kidney Disease Stage 4 Glomerular Filtration Rate 15-29 (HCC) (Primary Dx); Outreach Nephrology and , Hui Reddy, Anemia Of Chr onic Renal Disease; Hypertension in ANODIC TREATER, Hypertension And Chronic Kidney Disease Stage 1 To 4; [place], [place] C.N.P., Diabetes Mellitus Type 2 (HC C); [address] [facility] D.N.P. Hyperparathyroidism Secondar y ([place]) [place] [address] Social History Tobacco Use Types Packs/Day Years [...] often do you attend oriental orthodox or yazidism services? 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 Walton is a 71 y.o. male who presents for ongoing evaluation of chronic kidney disease. He was last seen in the [place] CKD visit by Dr. Menon on 09/29/20. He returns today reporting he feelswell and denies any signs or symptoms of uremia. He does report increased lower extremity swelling. In discussion he does not think the chlorthalidone helps increase his urination. Since his last appointment in nephrology he has started using the Dovo continuous glucose monitor. He reports this has [...] should use these agents very cautiously. Follow-up [place] with lab in 1 week and again [...] documented as of this encounter Care Teams Certified Medical Biller Relationship Specialty Start Date End Date Elsewhere, Pcp PCP - General Family Medicine 01/29/20 documented as of this encounter
--- OUTSIDE RECORDS SUMMARY | 2022-04-28 14:41 | XMS_ITS | Encounter Summary ---
:1950 Author Organization [facility] Address [address] [place] [address] Care Team Providers Name Role Phone Elsewhere, Pcp Primary Care Provider Unavailable Reason for Visit Reason Comments COVID Inquiry Encounter Details Date Type Department Care Team Description 05/12/2020 Clinical Communication Division of Vascular Hallie Velásquez ad, COVID Inquiry and Endovascular M.B.B.S. Surgery in [place], [facility] [address] [place], [place] [address] [place] [address] [place], [place] [phone] (Work) [phone] Social History Tobacco Use Types Packs/Day Years [...] How often do you attend bahai or shinto services? Never 03/25/2021 Do you [...] highest level of school Associate degree: migdalia treesachristelle, 04/30/2019 you have completed or the highest technical, or vocational p susan degree you have received? 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 [employer] documented in this encounter Plan of Treatment Not on filedocumented as of this encounter Visit Diagnoses Not on filedocumented in this encounter Additional Health Concerns Assessment Noted Time PHQ-9 Depression Total Score: 3 01/03/2018 10:38 AM CD T documented as of this encounter Care Teams Marketing Support Manager Relationship Specialty Start Date End Date Elsewhere, Pcp PCP - General Family Medicine 01/29/20 documented as of this encounter
--- OUTSIDE RECORDS SUMMARY | 2022-04-28 14:41 | XMS_ITS | Encounter Summary ---
:1950 Author Organization [facility] Address [address] [place] [address] Care Team Providers Name Role Phone Elsewhere, Pcp Primary Care Provider Unavailable Encounter Details Date Type Department Care Team Description 08/04/2020 Hospital Encounter Department of Kemar Velásquez Periphe [facility] Arterial Radiology, Santiago DavidB.S. Disease (HCC) Building, in [address] [place] [address] [place], [place] [phone] (Work) [phone] Social History Tobacco Use Types Packs/Day Years [...] How often do you attend anabaptism or gnosticism services? 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
--- OUTSIDE RECORDS SUMMARY | 2022-04-28 14:41 | XMS_ITS | Encounter Summary ---
:1950 Author Organization [facility] Address [address] [place] [address] Care Team Providers Name Role Phone Elsewhere, Pcp Primary Care Provider Unavailable Reason for Visit Reason Comments Med Refill Encounter Details Date Type Department Care Team Description 08/25/2020 Refill Department of Family Medicine, Bambi Adler Med Refill [facility], in Renee Phillips M.D. [place] [address] [place] [address] [place] [address] [phone] Social History Tobacco Use Types Packs/Day Years [...] How often do you attend mormon or yarsani services? 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
--- OUTSIDE RECORDS SUMMARY | 2022-04-28 14:41 | XMS_ITS | Encounter Summary ---
:1950 Author Organization [facility] Address [address] [place] [address] Care Team Providers Name Role Phone Elsewhere, Pcp Primary Care Provider Unavailable Reason for Visit Appointment Request (Routine) - Closed Specialty Diagnoses / Procedures Referred By Contact Refer red To Contact Nephrology and Hypertension Referral ID Status Reason Start Date Expiration Date Visits Requ ested Visits Authorized [id number] Closed 08/22/2020 08/22/2021 1 1 Encounter Details Date Type Department Care Team Description 09/29/2020 External Outreach Division of [place], Hypertensi ve Chronic Kidney Disease (CKD) Stage 3b Glomerular Filtration Rate (GFR) 30 To 44 (HCC) (Primary Dx); Nephrology and Haseeb Thomas Jr., Osteodystrop hy Renal; Hypertension in [place].O. Anemia Of Chronic Renal Disease; [place], [place] [address] [facility] Peripheral Arterial Disease (HCC); [address] [place], [place] Hyperkalemia; [place] [address] Acidosis Metabolic Hyperchloremic; [id number] Diabetes Mellitus Type 2 Wit h Other [...] How often do you attend christian or judaism services? 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 - 09/29/2020 3:30 PM CDT Please see scanned in note under document viewer tab for the [facility] [place] outreach visit from this date. documented in [...] documented as of this encounter Care Teams Electric Installer Relationship Specialty Start Date End Date Elsewhere, Pcp PCP - General Family Medicine 01/29/20 documented as of this encounter
--- OUTSIDE RECORDS SUMMARY | 2022-04-28 14:41 | XMS_ITS | Encounter Summary ---
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 [address] [place] [phone] Referral ID Status Reason Start Date Expiration Date Visits Requ ested Visits Authorized [id number] Closed 08/04/2020 08/04/2021 1 1 Reason for Visit Outpatient (Routine) - Closed Specialty Diagnoses / Procedures Referred By Contact Refer red To Contact Vascular Surgery Kemar Velásquez M.B.B. SFei [facility] [address] [place] [phone] Referral ID Status Reason Start Date Expiration Date Visits Requ ested Visits Authorized [id number] Closed 09/17/2019 09/16/2020 1 1 Encounter Details Date Type Department Care Team Description 08/04/2020 Office Visit Division of Vascular Kemar Velásquez Perip eral Arterial Disease (HCC) (Primary Dx); and Endovascular M.Faith.S. Diabetes Mellitus Type 2 With Other Circ ulatory Complication Hyperglycemic (HCC); Surgery in [address] Atherosclerosis Arteriosclerosis Obliter ans Lower Extremity (HCC); [place], [place] Follow Up Exam [address] [place] [address] [place], [place] [phone] (Work) [phone] Social History Tobacco Use Types Packs/Day Years [...] How often do you attend confucianist or worship services? 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 documented as of this encounter Consult Notes [...] Name Type Priority Associated Diagnoses Order [facility] V[facility] Medicine - Outpatient Routine Peripheral [...] Organization Address City/State/ZIP Code Phon e Number [facility] - [address] [place], [place] [address] [facility] [place] [address] Laboratories-[facility] [address] Sodium (02/10/2021 8:27 AM CDT) athologist Signature Sodium, S 138 135 - 145 02/10/2021 DTL mmol/L 10:06 AM CDT Specimen Anatomical Collection Method Collection Time Receive d Time (Source) Location / / Volume Laterality Blood (Blood, 02/10/2021 8:27 AM 02/11/20 21 9:07 Venous) CDT AM CDT Kemar DaivdB.S. LAB BLOOD ADD-ON Performing Organization Address City/[facility] Phon e Number [facility] - [address] [place] [address] (ABNORMAL) Potassium (02/10/2021 8:27 AM CDT) athologist Signature Potassium, S 6.0 (CH) 3.6 - 5.2 02/10/2021 DTL mmol/L 10:06 AM CDT Specimen Anatomical Collection Method Collection Time Receive d Time (Source) Location / / Volume Laterality Blood (Blood, 02/10/2021 8:27 AM 02/11/20 9:07 Venous) CDT AM CDT Kemar Redman.S. LAB BLOOD ADD-ON Performing Organization Address City/[facility] Phon e Number [facility] - [address] (ABNORMAL) Lipid Panel (02/10/2021 8:27 AM [...] DavidB.S. LAB BLOOD ADD-ON Performing Organization Address City/[facility] Phon e Number [facility] - 200 [place], [place] [address] [facility] [place] [place] [address] Glucose, Fasting (02/10/2021 8:27 AM CDT) [...] LAB BLOOD NON ADD-ON Performing Organization Address City/[facility] Phon e Number [facility] - 200 [place], [place] [address] [facility] [place] [place] [address] (ABNORMAL) Creatinine with Estimated GFR (02/10/2021 8:27 AM CDT) Analysis Performed At Patho logist Time Signature Creatinine 3.20 (H) 0.74 - 02/10/2021 DTL 1.35 mg/dL 10:06 AM CDT eGFR-Non 19 (L) >=60 02/10/2021 DTL Black/ mL/min/BSA 10:06 AM CDT Faroese Comment: ----ADDITIONAL INFORMATION---- Estimated GFR calculated using [...] Organization Address City/State/ZIP Code Phon e Number [facility] - [address] [place], [place] [address] [facility] [place] [address] [facility] [address] [facility] (ABNORMAL) CBC with Differential, Blood (02/10/2021 8:27 AM CDT) [facility] gist Method Time Signature Hemoglobin 10.3 [...] Redman.S. LAB BLOOD ADD-ON Performing Organization Address City/[facility] Phon e Number [facility] - [address] AST (Aspartate Aminotransferase) (02/10/2021 8:27 AM CDT) [facility] gist Method Time Signature Aspartate 18 8 - 48 02/10/2021 DTL Aminotransferase U/L 10:06 AM CDT (AST), S Specimen Anatomical Collection Method Collection Time Receive d Time (Source) Location / / Volume Laterality Blood (Blood, 02/10/2021 8:27 AM 02/11/20 21 9:07 Venous) CDT AM CDT Kemar DavidB.S. LAB BLOOD ADD-ON Performing Organization Address City/[facility] Phon e Number [facility] - 200 [place], [place] [address] [place] [address] [place] Lower Extremity Arteries Bilateral (02/06/2021 3:29 [...] as of this encounter Care Teams Special Delivery Carrier Relationship Specialty Start Date End Date Elsewhere, Pcp PCP - General Family Medicine 01/29/20 documented as of this encounter
--- OUTSIDE RECORDS SUMMARY | 2022-04-28 14:41 | XMS_ITS | Encounter Summary ---
:1950 Author Organization [facility] Address [address] [place] [address] Care Team Providers Name Role Phone Elsewhere, Pcp Primary Care Provider Unavailable Encounter Details Date Type Department Care Team Description 10/02/2020 Orders Only Division of Nephrology and Dilan Menon Hypertension in [place], ., D.O. [place] [address] [facility] [address] [place] [address] [phone] (Wo rk) Social History Tobacco Use Types [...] How often do you attend yarsanism or zoroastrianism services? 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
--- OUTSIDE RECORDS SUMMARY | 2022-04-28 14:41 | XMS_ITS | Encounter Summary ---
:1950 Author Organization [facility] Address [address] [place] [address] Care Team Providers Name Role Phone Elsewhere, Pcp Primary Care Provider Unavailable Reason for Visit Appointment Request (Routine) - Closed Specialty Diagnoses / Procedures Referred By Contact Refer red To Contact Nephrology and Rudy Riddle Hypertension [place] [address] [place] [address] Referral ID Status Reason Start Date Expiration Date Visits Requ ested Visits Authorized [id number] Closed 06/12/2020 06/12/2021 1 1 Encounter Details Date Type Department Care Team Description 06/16/2020 External Outreach Division of [place], Hypertensi ve Chronic Kidney Disease (CKD) Stage 3b Glomerular Filtration Rate (GFR) 30 To 44 (HCC) (Primary Dx); Nephrology and Haseeb Thomas Jr., Atherosclero sis Of [place] Ar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 (HCC); Hypertension in [place].O. Diabetes Mellitus Type 2 With Other Circ ulatory Complication Hyperglycemic (HCC); [place], [place] [address] [facility] Osteodystrophy Renal; [address] [place], [place] Anemia [place] [address] [phone] Social History Tobacco Use Types Packs/Day Years [...] How often do you attend worship or congregational services? 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 D.O. - 06/16/2020 3:30 PM CST Please see scanned in note under document viewer tab for the [facility] [place] outreach visit from this date. P CIO documented in this encounter Plan of Treatment [...] documented as of this encounter Care Teams Fabric Worker Fitter Relationship Specialty Start Date End Date Elsewhere, Pcp PCP - General Family Medicine 01/29/20 documented as of this encounter
--- OUTSIDE RECORDS SUMMARY | 2022-04-28 14:41 | XMS_ITS | Encounter Summary ---
:1950 Author Organization [facility] Address [address] [place] [address] Care Team Providers Name Role Phone Elsewhere, Pcp Primary Care Provider Unavailable Encounter Details Date Type Department Care Team Description 10/02/2020 Clinical Communication Division of Nephrology Haseeb Menon and Hypertension in [place] Sun D.O. 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 - 10/02/2020 5:13 PM CDT Phone call note I asked him to check on his medications when he got home. As I visited with him in [facility] in [place] it appears though he was taking both [...] documented as of this encounter Care Teams Galley Boy Relationship Specialty Start Date End Date Elsewhere, Pcp PCP - General Family Medicine 01/29/20 documented as of this encounter
--- OUTSIDE RECORDS SUMMARY | 2022-04-28 14:41 | XMS_ITS | Encounter Summary ---
:1950 Author Organization [facility] Address [address] [place] [address] Care Team Providers Name Role Phone Elsewhere, Pcp Primary Care Provider Unavailable Encounter Details Date Type Department Care Team Description 06/16/2020 Orders Only Division of Nephrology Haseeb Menon Mellitus Type 2 With Other Circulatory Complication Hyperglycemic (HCC) (Primary Dx); and Hypertension in [place] D.O. 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
--- OUTSIDE RECORDS SUMMARY | 2022-04-28 14:42 | XMS_ITS | Encounter Summary ---
:1950 Author Organization [facility] Address [address] [place] [address] Care Team Providers Name Role Phone Unavailable Primary Care Provider Unavailable Reason for Visit Reason Comments Nicotine Dependence Encounter Details Date Type Department Care Team Description 10/19/2019 Clinical Communication Department of Akil Adams Dependence Nicotine Carlos Mayers, M.AFei, [facility] CT.T.S. in [place], [facility] [address] [place], [place] [address] [place] [address] [place], [place] [phone] (Work) [phone] Social History Tobacco Use Types Packs/Day Years [...] How often do you attend jainism or restorationist services? 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
--- OUTSIDE RECORDS SUMMARY | 2022-04-28 14:42 | XMS_ITS | Encounter Summary ---
:1950 Author Organization [facility] Address [address] [place] [address] Care Team Providers Name Role Phone Unavailable Primary Care Provider Unavailable Reason for Visit Reason Onset Date Comments COVID Inquiry 09/24/2019 Encounter Details Date Type Department Care Team Description 09/24/2019 Clinical Communication Department of July Hernandez COVID Inquiry Nutrition in A, RDN, LD [place], [place] [address] [place] [address] Social History Tobacco Use Types Packs/Day Years [...] How often do you attend islam or gnosticism services? 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
--- OUTSIDE RECORDS SUMMARY | 2022-04-28 14:42 | XMS_ITS | Encounter Summary ---
:1950 Author Organization [facility] Address [address] [place] [address] Care Team Providers Name Role Phone Unavailable Primary Care Provider Unavailable Reason for Visit Reason Comments [facility] Med Request Encounter Details Date Type Department Care Team Description 09/25/2019 Clinical Communication Department of [facility] Med Request Nicotine Dependence, Sanya Mayers, [facility], [place] [address] [facility] [address] [place] [address] [phone] Social History Tobacco Use Types Packs/Day Years [...] How often do you attend scientology or congregation services? 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 - 09/25/2019 12:36 PM CDT 1. 28 mg patch 2. Inhaler [place], [place] documented in this encounter Plan of Treatment Not on filedocumented as of this encounter Visit Diagnoses Diagnosis Nicotine Dependence Cigarettes With With drawal - Primary documented in this encounter Additional Health Concerns Assessment Noted Time PHQ-9 Depression Total Score: 3 01/03/2018 10:38 AM CD T documented as of this encounter
--- OUTSIDE RECORDS SUMMARY | 2022-04-28 14:42 | XMS_ITS | Encounter Summary ---
:1950 Author Organization [facility] Address [address] [place] [address] Care Team Providers Name Role Phone Unavailable Primary Care Provider Unavailable Reason for Visit Reason Comments Med Refill Encounter Details Date Type Department Care Team Description 01/16/2020 Refill Department of Family Medicine, Bambi Adler Med Refill [facility], in Renee Phillips M.D. [place] [address] [place] [address] [place] [address] [phone] Social History Tobacco Use Types Packs/Day Years [...] at Date Recorded Male 03/24/2021 8:13 PM BOX ICER documented as of this encounter Miscellaneous Notes [...]
--- OUTSIDE RECORDS SUMMARY | 2022-04-28 14:42 | XMS_ITS | Encounter Summary ---
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 [facility] Procedures Lower Extremity Arterial (MIMI) - TCPO2 (Wound) [address] [place] [phone] Referral ID Status Reason Start Date Expiration Date Visits V isits Requested Authorized [id number] Canceled 06/26/2019 06/25/2020 1 1 Encounter Details Date Type Department Care Team Description 09/17/2019 Hospital Encounter Department of Kemar Velásquez [facility] [facility] (Clinic: Vascular Medicine in [facility] Appt Not Needed) [place], [place] [address] [facility] [address] [place] [phone] Social History Tobacco Use Types Packs/Day Years [...] How often do you attend anabaptist or synagogue services? 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
--- OUTSIDE RECORDS SUMMARY | 2022-04-28 14:42 | XMS_ITS | Encounter Summary ---
:1950 Author Organization [facility] Address [address] [place] [address] Care Team Providers Name Role Phone Elsewhere, Pcp Primary Care Provider Unavailable Reason for Visit Reason Comments Foreign Body in Skin Right pointer finger, slive r out yesterday in couple days Appointment Request (Routine) - Closed Specialty Diagnoses / Procedures Referred By Contact Refer red To Contact Family Medicine Referral ID Status Reason Start Date Expiration Date Visits Requ ested Visits Authorized [id number] Closed 02/22/2020 02/21/2021 1 1 Encounter Details Date Type Department Care Team Description 02/22/2020 Office Visit Urgent [facility] in [place] [place], [place] Delmy Right (Primary Dx) [address] [place] [phone] Social History Tobacco Use Types Packs/Day Years [...] How often do you attend zoroastrianism or restorationism services? 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 pantoprazole (PROTONIX) 40 [...] Rash itchy ??? Pregabalin Anaphylaxis swell ??? [id number]-[id number]-Jxk Reductase Inhibitors Myalgia OBJECTIVE Vitals: 02/22/20 0949 [...] of this encounter Care Teams Director Of Convention Services Relationship Specialty Start Date End Date Elsewhere, Pcp PCP - General Family Medicine 01/29/20 documented as of this encounter
--- OUTSIDE RECORDS SUMMARY | 2022-04-28 14:42 | XMS_ITS | Encounter Summary ---
:1950 Author Organization [facility] Address [address] [place] [id number] Care Team Providers Name Role Phone Elsewhere, Pcp Primary Care Provider Unavailable Encounter Details Date Type Department Care Team Description 05/08/2020 - Hospital Encounter [facility] David Zavaleta M.D., M.S. [address] [place] [phone] Pneumonia Community Acquired (Primary Dx ); 05/10/2020 [facility] Delmy Flores, M.B.A. [address] [place] [phone] Acute Respiratory Failure With Hypoxia ( HCC) [facility] Bebeto Finley M.D., M.S. [address] [place] [phone] [facility], Eighth Floor [address] [place] [phone] Social History Tobacco Use Types Packs/Day [...] How often do you attend buddhist or denominational services? Never 03/25/2021 Do you [...] or the highest technical, or vocational p Dimdimram degree you have received? 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 8:13 PM [employer] SALESPERSON documented as of this encounter Last Filed Vital Signs Vital Sign Reading Time Taken Comments Blood Pressure 144/75 05/10/2020 12:45 PM [employer] SALESPERSON Pulse 87 05/10/2020 12:30 PM [employer] SALESPERSON Temperature 36.7 ??C (98.1 ??F) 05/10/2020 12:30 PM [employer] SALESPERSON Respiratory Rate 31 05/10/2020 1:45 PM [employer] SALESPERSON Oxygen Saturation 96% 05/10/2020 12:30 PM [employer] SALESPERSON Inhaled Oxygen Concentration - - Weight 79.8 kg (175 lb 14.8 oz) 05/09/2020 5:00 AM [employer] SALESPERSON Height 175 cm (5' 8.9) 05/08/2020 3:00 PM [employer] SALESPERSON Body Mass Index 26.06 05/08/2020 3:00 PM [employer] SALESPERSON documented in this encounter Discharge Summaries Niels Casey M.D. - 05/10/2020 12:32 PM CST DISCHARGE SUMMARY BRIEF OVERVIEW Hospital: [facility] Discharge Provider: Mark Cabrera M.D. Primary Team: [facility] Medicine 9 ([facility]) Primary Care Providers: Elsewhere, Pcp (General) [...] transferred after admission to the hospital in [place] with an episode of an acute onset [...] were provided to the patient and caregiver(s). [employer] SALESPERSON documented in this encounter Discharge Instructions Discharge InstructionsJuju Concepcion - 05/08/2020 10:35 AM CST You were discharged from the [place] [address] ([facility]) Service. Please identify this service name if you call with questions after hospitalization. [employer] SALESPERSON AttachmentsThe following attachments cannot be sent through Care Everywhere. Carvedilol (By mouth) (Cameroonian)Chlorthalidone (By mouth) (Cameroonian)documented in this encounter Medications at Time of [...] lower than patient SpO2 is considered artifact. [employer]ERIES SALESPERSON Niels Casey M.D. - 05/09/2020 2:12 PM CST T Medicine 9 ([facility]) Progress Notes SUBJECTIVE Overnight he required [...] / PLAN Mr. Walton is hospitalized on [place] [address] ([facility]) for evaluation and management of Acute Respiratory Failure With Hypoxia ([facility]). #1 Hypertension And Chronic Kidney Disease Stage 1 To 4 #2 Diabetes Mellitus Type 2 With Other Circulatory Complication Hyperglycemic (HCC) #3 Hypertension NOS #4 Acute Respiratory Failure With Hypoxia ([facility]) #5 Pneumonia Community Acquired Mr. Walton is [...] (not yet met): Tests/procedures/consults Counseling was provided [id number] at bedside regarding the plan of care as stated above. I personally spent over half of a total 25 minutes in counseling and coordination of care as documented above. AINS AND [employer]APERIES SALESPERSON Kaylyn Sultana R.R.T., L.RJorge. - 05/08/2020 10:36 PM CST Overnight oximeter placed on patient with a SpO2 reading 90% on room air. No signs of respiratory distress noted while RT was in the room. Electronically signed by: Kaylyn Sultana R.R.T., L.R.T. 05/08/20 10:37 PM [employer] SALESPERSON AINS AND [employer]APERIES SALESPERSON documented in this encounter H&P Notes Bebeto Ayala M.D., M.S. - 05/08/2020 11:37 AM CST [facility] Medicine 9 ([facility]) Admission Note SUBJECTIVE CHIEF COMPLAINT HISTORY OF PRESENT ILLNESS Mr. Onesimo Walton is a 70 y.o. male who was transferred after admission to the hospital in [place] with an episode of an acute onset [...] needed for pain (takes 10mg everyday between [id number].). ??? oxyCODONE-acetaminophen (PERCOCET) 5-325 mg per tablet, [...] reviewed the labs, ECG and xray from [facility] ASSESSMENT / PLAN #1 Acute Respiratory [...] heparin Code status: Full Code Disposition: Home A[employer]ER[employer] SALESPERSON documented in this encounter Consult Notes Maite Kerns R.N. - 05/10/2020 11:44 AM CSTAssociated Order(s): IP CONSULT TO CARE MANAGEMENT Discharge Planning Assessment SUBJECTIVE Referral Data Referral Source: Early Screen for Discharge Planning Referral Reason: Discharge Planning Discharge Planning: Early screen discharge, Other (Comment)(oxygen) Who was present during the interview?: Patient Dock Grader Services Used: No Patient Information Primary Caregiver: [...] Behavior: Oriented Communication: Talks, Understands speaking, Understands Cameroonian Environmental Supports Home Environment: House Anticipated Modifications to the Patient's Home: None Anticipated Needs/Assistive Devices ADL Anticipated Needs: None Equipment Anticipated Needs: Other (comment)(oxygen) Transportation Needs: Independent to drive, Support from family Finance/Insurance Primary insurance: MEDICARE A AND B Secondary insurance: A2B Does the Patient have any Financial Concerns?: [...] arranged?: No ASSESSMENT / PLAN Assessment: The draw tender met with Onesimo Walton to discuss his current hospitalization and home going needs. The patient was unaccompanied. The patient was a reliable historian. The role of draw tender was reviewed. The patient reviewed his prior level of care and support system. The patient receives support from his , children and extended family. The patient described his living environment as a home with bedroom and bathroom on same floor with stairs to enter with rails. Housekeeping, grocery shopping, meal prep, and other household responsibilities have previously been completed by patient. draw tender discussed the patient's potential needs at dismissal [...] chart and meeting with the patient, the draw tender deemed the LACE+/readmission questions were not necessary. [...] will be provided by family--patient's . 3. draw tender recommended a shower seat, grab bars and reaching out to family, friends, and neighbors for assistance. 4. draw tender provided information regarding the dismissal process and the Senior Linkage Line ([place] [employer]) handout. 5. draw tender placed or requested the following hospital-based consult orders and/or referrals:None. 6. draw tender will continue to assess for homegoing needs with the interdisciplinary team. 7. draw tender encouraged the patient to reach out with any questions/concerns. Care Management will continue to follow. Home oxygen will be provided by: Selected Continued Care - Admitted Since 05/08/2020 Durable Medical Equipment Coordination complete Service Provider Selected Services Address Phone Fax Patient Preferred [employer] Durable Medical Equipment [address] [facility] , [facility] [address] [phone] -- Contact: Intake Portable tanks for transport [...] follow. Signed by: Maite Kerns R.N. 05/10/2020 [employer] SALESPERSON documented in this encounter Nursing Notes Glenn Tavares R.R.T., L.R.T. - 05/10/2020 5:35 AM CST Nocturnal trend orders in place for patient. RN instructed to place the patient on room air at the beginning of the study and notify the monitoring lab when patient is ready for bed. RN instructed to chart that patient was placed on room air in [facility]. RN notified that lab will call when the patient is to be placed on oxygen if needed. Will follow up with RN around 0500. End of study note: RN stated patient required 2 L nasal cannula overnight for nocturnal oxygen study. Electronically signed by: Glenn Tavares R.R.T., L.RFeiTFei 05/10/20 5:35 AM [employer] SALESPERSON AINS AND DRAPERIES SALESPERSON Stef Thurman R.N., RenettaS.R.N. - 05/09/2020 10:44 [...] of 182/73 @2200. No new orders currently. [employer]AP[employer] SALESPERSON Glenn Tavares R.R.T., L.R.T. - 05/09/2020 10:16 PM CST Nocturnal trend orders in place for patient. RN instructed to place the patient on room air at the beginning of the study and notify the monitoring lab when patient is ready for bed. RN instructed to chart that patient was placed on room air in [facility]. RN notified that lab will call when the patient is to be placed on oxygen if needed. Will follow up with RN around 0500. Electronically signed by: Glenn Tavares R.R.T., L.R.T. 05/09/20 10:16 PM [employer] SALESPERSON AINS AND DRAPERIES SALESPERSON documented in this encounter Miscellaneous Notes Hospital Course - Niels Casey M.D. - 05/09/2020 1:15 PM CST Mr. Onesimo Walton is a 70 y.o. male who was transferred after admission to the hospital in [place] with an episode of an acute onset [...] specific appearance. ?? 3. Mediastinal lymphadenopathy, indeterminate. [employer] SALESPERSON documented in this encounter Plan of Treatment Not on filedocumented as of this encounter Procedures Procedure Name Priority Date/Time Associated Comments Diagnosis GLUCOSE POCT, B Routine 05/10/2020 11:52 Results for AM [employer] SALESPERSON this procedure are in the results section. GLUCOSE POCT, B Routine 05/10/2020 8:09 Results f or AM [employer] SALESPERSON this procedure are in the results section. GLUCOSE POCT, B Routine 05/10/2020 7:51 Results f or AM [employer] SALESPERSON this procedure are in the results section. CBC WITH Routine 05/10/2020 7:22 Results for DIFFERENTIAL, B AM [employer] SALESPERSON this procedu re are in the results section. BASIC METABOLIC Routine 05/10/2020 7:22 Results f or PANEL, S/P AM [employer] SALESPERSON this procedure are in the results section. INFLUENZA A/B AND Routine 05/09/2020 9:36 Results for RSV, PCR PM [employer] SALESPERSON this procedure are in the results section. GLUCOSE POCT, B Routine 05/09/2020 9:29 Results f or PM [employer] SALESPERSON this procedure are in the results section. GLUCOSE POCT, B Routine 05/09/2020 5:22 Results f or PM [employer] SALESPERSON this procedure are in the results section. GLUCOSE POCT, B Routine 05/09/2020 4:10 Results f or PM [employer] SALESPERSON this procedure are in the results section. GLUCOSE POCT, B Routine 05/09/2020 2:56 Results f or PM [employer] SALESPERSON this procedure are in the results section. NOCTURNAL OXYGEN Routine 05/09/2020 2:12 STUDY - RT PM [employer] SALESPERSON DX CHEST AP OR PA AND RAD - Routine 05/09/2020 2:01 Re sults for LATERAL 2 VIEWS (most inpatients PM CURTA[employer]ER[employer] SALESPERSON this pro cedure and all are in the outpatients) results section. GLUCOSE POCT, B Routine 05/09/2020 12:45 Results for PM [employer] SALESPERSON this procedure are in the results section. GLUCOSE POCT, B Routine 05/09/2020 12:09 Results for PM [employer] SALESPERSON this procedure are in the results section. GLUCOSE POCT, B Routine 05/09/2020 11:46 Results for AM [employer] SALESPERSON this procedure are in the results section. GLUCOSE POCT, B Routine 05/09/2020 11:30 Results for AM [employer] SALESPERSON this procedure are in the results section. RT PULSE OXIMETRY, Routine 05/09/2020 10:23 Resul ts for OVERNIGHT AM [employer] SALESPERSON this procedure are in the results section. ADULT OXYGEN THERAPY Routine 05/09/2020 8:01 AM [employer] SALESPERSON GLUCOSE POCT, B Routine 05/09/2020 7:25 Results f or AM [employer] SALESPERSON this procedure are in the results section. GLUCOSE POCT, B Routine 05/09/2020 7:06 Results f or AM [employer] SALESPERSON this procedure are in the results section. GLUCOSE POCT, B Routine 05/09/2020 6:36 Results f or AM [employer] SALESPERSON this procedure are in the results section. GLUCOSE POCT, B Routine 05/09/2020 6:18 Results f or AM [employer] SALESPERSON this procedure are in the results section. D-DIMER, P Routine 05/09/2020 4:54 Results for AM [employer] SALESPERSON this procedure are in the results section. CBC WITH Routine 05/09/2020 4:54 Results for DIFFERENTIAL, B AM [employer] SALESPERSON this procedu re are in the results section. C-REACTIVE PROTEIN Routine 05/09/2020 4:54 Result s for (CRP), S/P AM [employer] SALESPERSON this procedure are in the results section. FERRITIN, S Routine 05/09/2020 4:54 Results for AM [employer] SALESPERSON this procedure are in the results section. COMPREHENSIVE Routine 05/09/2020 4:54 Results for METABOLIC PANEL, S/P AM [employer] SALESPERSON this pr ocedure are in the results section. GLUCOSE POCT, B Routine 05/08/2020 10:13 Results for PM [employer] SALESPERSON this procedure are in the results section. ADULT OXYGEN THERAPY Routine 05/08/2020 8:01 PM [employer] SALESPERSON GLUCOSE POCT, B Routine 05/08/2020 6:33 Results f or PM [employer] SALESPERSON this procedure are in the results section. US KIDNEYS WITH RENAL RAD - Routine 05/08/2020 5:47 Re sults for ARTERY DOPPLER (most inpatients PM [employer] SALESPERSON this proc edure and all are in the outpatients) results section. (TTE) 2D ECHO DOPPLER Routine 05/08/2020 4:32 Res ults for COLOR PM [employer] SALESPERSON this procedure are in the results section. ALDOSTERONE, P Routine 05/08/2020 3:10 Results fo r PM [employer] SALESPERSON this procedure are in the results section. RENIN ACTIVITY, P Routine 05/08/2020 3:10 Results for PM [employer] SALESPERSON this procedure are in the results section. IFLU A, B, SARS Routine 05/08/2020 2:34 Results f or COV-2, PCR, RAPID,V PM [employer] SALESPERSON this pro cedure are in the results section. GLUCOSE POCT, B Routine 05/08/2020 1:01 Results f or PM [employer] SALESPERSON this procedure are in the results section. INTERPRETATION OF RAD - Routine 05/08/2020 12:45 Resul ts for OUTSIDE CT CHEST (most inpatients PM [employer]TA[employer] SALESPERSON this pr ocedure and all are in the outpatients) results section. CBC WITH Routine 05/08/2020 12:16 Results for DIFFERENTIAL, B PM [employer] SALESPERSON this procedu re are in the results section. BASIC METABOLIC Routine 05/08/2020 12:16 Results for PANEL, S/P PM [employer] SALESPERSON this procedure are in the results section. ADULT OXYGEN THERAPY Routine 05/08/2020 11:37 AM [employer] SALESPERSON ADULT OXYGEN THERAPY Routine 05/08/2020 11:37 AM [employer] SALESPERSON documented in this encounter Results (ABNORMAL) Glucose, POCT (05/10/2020 11:52 AM [employer]TA[employer] AND [employer] SALESPERSON) Analysis Performed At Patho logist Time Signature Glucose, POCT, 248 (H) 70 - 140 05/10/2020 [facility] B mg/dL 11:55 AM [employer] SALESPERSON Site Capillary 05/10/2020 [facility] 11:55 AM [employer] SALESPERSON Last Intake 3-4 hours 05/10/2020 [facility] 11:55 AM [employer] SALESPERSON Specimen Anatomical Collection Method Collection Time Receive d Time (Source) Location / / Volume Laterality Blood 05/10/2020 11:52 05/10/2020 AM [employer] SALESPERSON 11:56 AM [employer] SALESPERSON Unknown Provider LAB POCT ORDERABLES-MANUAL Performing Organization Address City/State/ZIP Code Phon e Number POC [facility] [address] [place] [address] [place] [address] [place] [facility] [address] Glucose, POCT (05/10/2020 8:09 AM [employer] SALESPERSON) Analysis Performed At Patho logist Time Signature Glucose, POCT, 85 70 - 140 05/10/2020 [facility] B mg/dL 8:12 AM [employer] SALESPERSON Site Capillary 05/10/2020 [facility] 8:12 AM [employer] SALESPERSON Last Intake <1 hour 05/10/2020 [facility] 8:12 AM [employer] SALESPERSON Specimen Anatomical Collection Method Collection Time Receive d Time (Source) Location / / Volume Laterality Blood 05/10/2020 8:09 AM 0 8:12 [employer] SALESPERSON AM [employer] SALESPERSON Unknown Provider LAB POCT ORDERABLES-MANUAL Performing Organization Address City/[facility] Phon e Number [facility]OC [facility] [address] [place] [address] [place] [address] [place] [facility] [address] [facility] (ABNORMAL) Glucose, POCT (05/10/2020 7:51 AM CURTA[employer] AND [employer] SALESPERSON) Analysis Performed At Patho logist Time Signature Glucose, POCT, 69 (L) 70 - 140 05/10/2020 [facility] B mg/dL 7:57 AM [employer] SALESPERSON Site Capillary 05/10/2020 [facility] 7:57 AM [employer] SALESPERSON Last Intake > 4 hours 05/10/2020 [facility] 7:57 AM [employer] SALESPERSON Specimen Anatomical Collection Method Collection Time Receive d Time (Source) Location / / Volume Laterality Blood 05/10/2020 7:51 AM 0 7:58 [employer] SALESPERSON AM [employer] AND [employer] SALESPERSON Unknown Provider LAB POCT ORDERABLES-MANUAL Performing Organization Address City/[facility] Code Phon e Number POC [facility] [address] [place] [address] [place] [address] [place] [facility] [address] (ABNORMAL) CBC with Differential, Blood (05/10/2020 7:22 AM [employer]TA[employer] SALESPERSON) Patholo gist Method Time Signature Hemoglobin 11.4 (L) 13.2 - 05/10/2020 DTL 16.6 g/dL 8:09 AM [employer] SALESPERSON Hematocrit 35.2 (L) 38.3 - 05/10/2020 DTL 48.6 % 8:09 AM [employer] SALESPERSON Erythrocytes 3.74 (L) 4.35 - 05/10/2020 DTL 5.65 8:09 AM [employer] SALESPERSON x10(12)/L MCV 94.1 78.2 - 05/10/2020 DTL 97.9 fL 8:09 AM [employer] SALESPERSON RBC Distrib Width 15.0 (H) 11.8 - 05/10/2020 [facility] 14.5 % 8:09 AM [employer] SALESPERSON Platelet Count 379 (H) 135 - 317 05/10/2020 DTL x10(9)/L 8:09 AM [employer] SALESPERSON Leukocytes 13.0 (H) 3.4 - 9.6 05/10/2020 DTL x10(9)/L 8:09 AM [employer] SALESPERSON Neutrophils 9.44 (H) 1.56 - 05/10/2020 DTL 6.45 8:09 AM [employer] SALESPERSON x10(9)/L Lymphocytes 1.89 0.95 - 05/10/2020 DTL 3.07 8:09 AM [employer] SALESPERSON x10(9)/L Monocytes 1.11 (H) 0.26 - 05/10/2020 DTL 0.81 8:09 AM [employer] AND [employer] SALESPERSON x10(9)/L Eosinophils 0.50 (H) 0.03 - 05/10/2020 DTL 0.48 8:09 AM [employer] AND [employer] SALESPERSON x10(9)/L Basophils 0.05 0.01 - 05/10/2020 DTL 0.08 8:09 AM [employer] SALESPERSON x10(9)/L Specimen Anatomical Collection Method Collection Time Receive d Time (Source) Location / / Volume Laterality Blood (Blood, 05/10/2020 7:22 AM 05/10/20 20 7:58 Venous) [employer] SALESPERSON AM [employer] SALESPERSON Niels Casey M.D. LAB BLOOD ADD-ON Performing Organization Address City/State/ZIP Code Phon e Number [facility] - [address] [place], [place] [address] [facility] [place] [address] [address] (ABNORMAL) Basic Metabolic Panel (05/10/2020 7:22 AM CURTA[employer] SALESPERSON) Analysis Performed At Patho logist Time Signature Potassium, S 4.1 3.6 - 5.2 05/10/2020 [facility]TL mmol/L 8:37 AM [employer] SALESPERSON Sodium, S 142 135 - 145 05/10/2020 DTL mmol/L 8:37 AM [employer] SALESPERSON Chloride, S 104 98 - 107 05/10/2020 DTL mmol/L 8:37 AM [employer] SALESPERSON Bicarbonate, S 25 22 - 29 05/10/2020 DTL mmol/L 8:37 AM [employer] SALESPERSON Anion Gap 13 7 - 15 05/10/2020 DTL 8:37 AM [employer] SALESPERSON BUN (Blood Urea 28 (H) 8 - 24 05/10/2020 DTL Nitrogen), S mg/dL 8:37 AM [employer] SALESPERSON Creatinine 2.34 (H) 0.74 - 05/10/2020 DTL 1.35 mg/dL 8:37 AM [employer] SALESPERSON eGFR-Non 28 (L) >=60 05/10/2020 DTL Black/ mL/min/BSA 8:37 AM [employer] SALESPERSON [place] Comment: ----ADDITIONAL INFORMATION---- Estimated GFR calculated using the 2009 CKD_EPI creatinine equation. eGFR-Black/ 32 (L) >=60 mL/min/BSA 2019 8:37 AM CURTA[employer] AND [employer]APER[employer] SALESPERSON DTL Comment: ----ADDITIONAL INFORMATION---- Estimated GFR calculated using the 2009 CKD_EPI creatinine equation. Calcium, Total, S 8.2 (L) 8.8 - 10.2 mg/dL 05/10/2020 8:37 AM [employer]TA[employer] AND [employer]ER[employer] SALESPERSON DTL Glucose, S 60 (L) 70 - 140 mg/dL 05/10/2020 8:37 AM [employer]TA[employer] AND [employer]ER[employer] SALESPERSON D TL Specimen Anatomical Collection Method Collection Time Receive d Time (Source) Location / / Volume Laterality Blood (Blood, 05/10/2020 7:22 AM 05/10/20 20 7:59 Venous) [employer] SALESPERSON AM [employer] SALESPERSON Niels Casey M.D. LAB BLOOD ADD-ON Performing Organization Address City/State/ZIP Code Phon e Number [facility] - [address] [place], [place] [address] [facility] [place] [address] [address] Influenza A/B and Respiratory Syncytial Virus, PCR (05/09/2020 9:36 PM [employer] SALESPERSON) Component Value Ref Range Test Analysis Performed Pathologis t Method Time At Signature Specimen NASOPHARYNGEAL 05/10/2020 DTL Source SWAB 12:17 AM [employer] SALESPERSON Influenza A, Negative Negative 05/10/2020 DTL PCR 12:17 AM [employer] SALESPERSON Influenza B, Negative Negative 05/10/2020 DTL PCR 12:17 AM [employer] SALESPERSON Respiratory Negative Negative 05/10/2020 DTL Syncytial 12:17 AM Virus, PCR [employer] SALESPERSON Comment: ----ADDITIONAL INFORMATION---- This assay is performed using the FDA-cl eared Simplexa Flu A/B and RSV Direct ([employer] For testing p erformed at [facility] in [place], [place], performance characteristics for samp les submitted in phosphate buffered saline were determined by [facility] in a manner consistent with CLIA requirements. Specimen Anatomical Collection Method Collection Time Receive d Time (Source) Location / / Volume Laterality Varies 05/09/2020 9:36 PM 0 9:36 (Nasopharynx) [employer] SALESPERSON PM [employer]IES SALESPERSON Bebeto Ayala M.D., M.S. LAB MICROBIOLOGY - GENERAL ORDERABLES Performing Organization Address [facility] Phon e Number [facility] - [address] [facility] (ABNORMAL) Glucose, POCT (05/09/2020 9:29 PM [employer] SALESPERSON) Analysis Performed At Psychiatric Signature Glucose, POCT, 222 (H) 70 - 140 05/09/2020 [facility] B mg/dL 9:32 PM [employer] SALESPERSON Site Capillary 05/09/2020 [facility] 9:32 PM [employer] SALESPERSON Last Intake > 4 hours 05/09/2020 [facility] 9:32 PM [employer] SALESPERSON Specimen Anatomical Collection Method Collection Time Receive d Time (Source) Location / / Volume Laterality Blood 05/09/2020 9:29 PM 0 9:33 [employer] SALESPERSON PM [employer] SALESPERSON Unknown Provider LAB POCT ORDERABLES-MANUAL Performing Organization Address City/[facility] Phon e Number [facility] [id number] [place] [address] (ABNORMAL) Glucose, POCT (05/09/2020 5:22 PM [employer] SALESPERSON) [facility] Signature Glucose, POCT, 176 (H) 70 - 140 05/09/2020 [facility] B mg/dL 5:29 PM [employer] SALESPERSON Site Capillary 05/09/2020 P[facility] 5:29 PM [employer] SALESPERSON Last Intake > 4 hours 05/09/2020 P[facility] 5:29 PM [employer] SALESPERSON Specimen Anatomical Collection Method Collection Time Receive d Time (Source) Location / / Volume Laterality Blood 05/09/2020 5:22 PM 0 5:29 [employer] SALESPERSON PM [employer] SALESPERSON Unknown Provider LAB POCT ORDERABLES-MANUAL Performing Organization Address City/[facility]/ZIP Code Phon e Number POC [facility] [address] [place] [address] [place] [address] [place] P[facility] 200 [facility] (ABNORMAL) Glucose, POCT (05/09/2020 4:10 PM [employer] SALESPERSON) Analysis Performed At Patho logist Time Signature Glucose, POCT, 150 (H) 70 - 140 05/09/2020 [facility] B mg/dL 4:12 PM [employer] SALESPERSON Site Capillary 05/09/2020 P[facility] 4:12 PM [employer] SALESPERSON Last Intake 2-3 hours 05/09/2020 [facility] 4:12 PM [employer] SALESPERSON Specimen Anatomical Collection Method Collection Time Receive d Time (Source) Location / / Volume Laterality Blood 05/09/2020 4:10 PM 0 4:13 [employer] SALESPERSON PM [employer] SALESPERSON Unknown Provider LAB POCT ORDERABLES-MANUAL Performing Organization Address City/[facility] Phon e Number POC [facility] [address] [place] [address] [place] [address] [place] POC 200 [facility] (ABNORMAL) Glucose, POCT (05/09/2020 2:56 PM [employer] SALESPERSON) Analysis Performed At Patho logist Time Signature Glucose, POCT, 146 (H) 70 - 140 05/09/2020 [facility] B mg/dL 3:04 PM [employer] SALESPERSON Site Capillary 05/09/2020 P[facility] 3:04 PM [employer] SALESPERSON Last Intake 1-2 hours 05/09/2020 P[facility] 3:04 PM [employer] SALESPERSON Specimen Anatomical Collection Method Collection Time Receive d Time (Source) Location / / Volume Laterality Blood 05/09/2020 2:56 PM 0 3:04 [employer] SALESPERSON PM [employer] SALESPERSON Unknown Provider LAB POCT ORDERABLES-MANUAL Performing Organization Address City/[facility] Code Phon e Number POC [facility] [address] [place] [address] [place] [address] [place] P[place] 200 [facility] DX Chest AP or PA and Lateral 2 Views (05/09/2020 2:01 PM [employer] SALESPERSON) Anatomical Region Laterality Modality Chest, Thoracic RST LOS, Thoracic ARZ LOS, Thoracic N/A Digital Radiography FLA LOS Specimen (Source) Anatomical Collection Method Collection Time Re ceived Time Location / / Volume Laterality 05/09/2020 2:04 PM [employer] SALESPERSON Impressions 05/09/2020 2:07 PM [employer] SALESPERSON Since 05/07/2020, interval decrease in size of small bilateral pleural effusions. No focal consolidatio n. No pneumothorax. Narrative 05/09/2020 2:07 PM [employer] SALESPERSON EXAM: ??DX CHEST AP OR PA AND [...] PROCE DURES Glucose, POCT (05/09/2020 12:45 PM [employer] SALESPERSON) Analysis Performed At Patho logist Time Signature Glucose, POCT, 136 70 - 140 05/09/2020 [facility] B mg/dL 12:49 PM [employer] SALESPERSON Site Capillary 05/09/2020 P[facility] 12:49 PM [employer] SALESPERSON Last Intake 1-2 hours 05/09/2020 [facility] 12:49 PM [employer] SALESPERSON Specimen Anatomical Collection Method Collection Time Receive d Time (Source) Location / / Volume Laterality Blood 05/09/2020 12:45 05/09/2020 PM [employer] SALESPERSON 12:50 PM [employer] SALESPERSON Unknown Provider LAB POCT ORDERABLES-MANUAL Performing Organization Address City/State/ZIP Code Phon e Number POC [facility] [address] [place] [address] [place] [address] [place] P[place] 200 [facility] Glucose, POCT (05/09/2020 12:09 PM [employer] SALESPERSON) Analysis Performed At Patho logist Time Signature Glucose, POCT, 85 70 - 140 05/09/2020 [facility] B mg/dL 12:49 PM [employer] SALESPERSON Site Capillary 05/09/2020 P[facility] 12:49 PM [employer] SALESPERSON Specimen Anatomical Collection Method Collection Time Receive d Time (Source) Location / / Volume Laterality Blood 05/09/2020 12:09 05/09/2020 PM [employer] SALESPERSON 12:49 PM [employer] SALESPERSON Unknown Provider LAB POCT ORDERABLES-MANUAL Performing Organization Address City/[facility] Phon e Number POC [facility] [address] [place] [address] [place] [address] [place] P[facility] [address] [facility] (ABNORMAL) Glucose, POCT (05/09/2020 11:46 AM [employer] SALESPERSON) Analysis Performed At Patho logist Time Signature Glucose, POCT, 59 (L) 70 - 140 05/09/2020 [facility] B mg/dL 12:49 PM [employer] SALESPERSON Site Capillary 05/09/2020 P[facility] 12:49 PM [employer] SALESPERSON Specimen Anatomical Collection Method Collection Time Receive d Time (Source) Location / / Volume Laterality Blood 05/09/2020 11:46 05/09/2020 AM [employer] SALESPERSON 12:49 PM [employer] SALESPERSON Unknown Provider LAB POCT ORDERABLES-MANUAL Performing Organization Address City/[facility] Phon e Number POC [facility] [address] [place] [address] [place] [address] [place] P[place] [address] (ABNORMAL) Glucose, POCT (05/09/2020 11:30 AM [employer] SALESPERSON) Analysis Performed At Patho logist Time Signature Glucose, POCT, 29 (L) 70 - 140 05/09/2020 [facility] B mg/dL 12:49 PM [employer] SALESPERSON Site Capillary 05/09/2020 PCLX 12:49 PM [employer] SALESPERSON Last Intake 3-4 hours 05/09/2020 PCLX 12:49 PM [employer] SALESPERSON Specimen Anatomical Collection Method Collection Time Receive d Time (Source) Location / / Volume Laterality Blood 05/09/2020 11:30 05/09/2020 AM [employer] SALESPERSON 12:49 PM [employer] SALESPERSON Unknown Provider LAB POCT ORDERABLES-MANUAL Performing Organization Address City/State/[facility] Phon e Number POC [facility] [address] [place] [address] [place] [address] [place] P[place] [address] RT Pulse Oximetry, Overnight (05/09/2020 10:23 AM [employer] SALESPERSON) Specimen (Source) Anatomical Location Collection Method / Collectio n Time Received Time / Laterality Volume 05/08/2020 Narrative [facility] - 05/12/2020 12:[address] This result has an attachment that is no t available. See PDF report for results Procedure Note Jorge Carrillo M.B.B.S. - 05/12/2020 See PDF report for results Niels Casey M.D. [facility] ORDERABLES Performing Organization Address City/State/ZIP Code Phon e Number [facility] Glucose, POCT (05/09/2020 7:25 AM [employer] SALESPERSON) Analysis Performed At Patho logist Time Signature Glucose, POCT, 131 70 - 140 05/09/2020 [facility] B mg/dL 7:48 AM [employer] SALESPERSON Site Capillary 05/09/2020 P[facility] 7:48 AM [employer] SALESPERSON Specimen Anatomical Collection Method Collection Time Receive d Time (Source) Location / / Volume Laterality Blood 05/09/2020 7:25 AM 0 7:49 [employer] SALESPERSON AM [employer] SALESPERSON Unknown Provider LAB POCT ORDERABLES-MANUAL Performing Organization Address City/[facility] Phon e Number POC [facility] [address] [place] [address] [place], [place] [address] [place] [address] Glucose, POCT (05/09/2020 7:06 AM [employer] SALESPERSON) Analysis Performed At Patho logist Time Signature Glucose, POCT, 125 70 - 140 05/09/2020 [facility] B mg/dL 7:09 AM [employer] SALESPERSON Site Capillary 05/09/2020 P[facility] 7:09 AM [employer] SALESPERSON Specimen Anatomical Collection Method Collection Time Receive d Time (Source) Location / / Volume Laterality Blood 05/09/2020 7:06 AM 0 7:09 [employer] SALESPERSON AM [employer] SALESPERSON Unknown Provider LAB POCT ORDERABLES-MANUAL Performing Organization Address City/[facility]/ZIP [facility] Phon e Number POC [facility] [address] [place] [address] [place] [address] [place] P[place] [address] (ABNORMAL) Glucose, POCT (05/09/2020 6:36 AM [employer] SALESPERSON) Analysis Performed At Patho logist Time Signature Glucose, POCT, 56 (L) 70 - 140 05/09/2020 [facility]CL[facility] B mg/dL 6:38 AM [employer] SALESPERSON Site Capillary 05/09/2020 PCL[facility] 6:38 AM [employer] SALESPERSON Last Intake <1 hour 05/09/2020 PCL[facility] 6:38 AM [employer] SALESPERSON Specimen Anatomical Collection Method Collection Time Receive d Time (Source) Location / / Volume Laterality Blood 05/09/2020 6:36 AM 0 6:38 [employer] SALESPERSON AM [employer] SALESPERSON Unknown Provider LAB POCT ORDERABLES-MANUAL Performing Organization Address City/[facility] Phon e Number POC [facility] [address] [place] [address] [place], [place] [address] [place] [address] POC 200 [facility] (ABNORMAL) Glucose, POCT (05/09/2020 6:18 AM [employer] SALESPERSON) Analysis Performed At Patho logist Time Signature Glucose, POCT, 49 (L) 70 - 140 05/09/2020 [facility]CL[facility] B mg/dL 6:20 AM [employer] SALESPERSON Site Capillary 05/09/2020 PCL[facility] 6:20 AM [employer] SALESPERSON Last Intake > 4 hours 05/09/2020 PCL[facility] 6:20 AM [employer] SALESPERSON Specimen Anatomical Collection Method Collection Time Receive d Time (Source) Location / / Volume Laterality Blood 05/09/2020 6:18 AM 0 6:20 [employer] SALESPERSON AM [employer] SALESPERSON Unknown Provider LAB POCT ORDERABLES-MANUAL Performing Organization Address City/[facility] Phon e Number POC [facility] [address] [place] [address] [place], [place] [address] [place] [address] POC 200 [facility] (ABNORMAL) Comprehensive Metabolic Panel (05/09/2020 4:54 AM [employer] SALESPERSON) Analysis Performed At Patho logist Time Signature Potassium, S 4.0 3.6 - 5.2 05/09/2020 DTL mmol/L 5:45 AM [employer] SALESPERSON Sodium, S 142 135 - 145 05/09/2020 DTL mmol/L 5:45 AM [employer] SALESPERSON Chloride, S 106 98 - 107 05/09/2020 DTL mmol/L 5:45 AM [employer] SALESPERSON Bicarbonate, S 24 22 - 29 05/09/2020 DTL mmol/L 5:45 AM [employer] SALESPERSON Anion Gap 12 7 - 15 05/09/2020 DTL 5:45 AM [employer] SALESPERSON BUN (Blood Urea 29 (H) 8 - 24 05/09/2020 DTL Nitrogen), S mg/dL 5:45 AM [employer] SALESPERSON Creatinine 2.35 (H) 0.74 - 05/09/2020 DTL 1.35 mg/dL 5:45 AM [employer] SALESPERSON eGFR-Non 27 (L) >=60 05/09/2020 DTL Black/ mL/min/BSA 5:45 AM [employer] SALESPERSON [place] Comment: ----ADDITIONAL INFORMATION---- Estimated GFR calculated using the 2009 CKD_EPI creatinine equation. eGFR-Black/ 32 (L) >=60 mL/min/BSA 2019 5:45 AM [employer]TA[employer] AND [employer]ER[employer] SALESPERSON DTL Comment: ----ADDITIONAL INFORMATION---- Estimated GFR calculated using the 2009 CKD_EPI creatinine equation. Calcium, Total, S 7.9 (L) 8.8 - 10.2 mg/dL 05/09/2020 5:45 AM [employer]TA[employer]ER[employer] SALESPERSON DTL Glucose, S 47 (CL) 70 - 140 mg/dL 05/09/2020 5:45 AM [employer] SALESPERSON D TL Protein, Total, S 5.9 (L) 6.3 - 7.9 g/dL 05/09/2020 5:45 A M [employer] SALESPERSON DTL Albumin, S 3.0 (L) 3.5 - 5.0 g/dL 05/09/2020 5:45 AM [employer] SALESPERSON D TL Aspartate Aminotransferase 26 8 - 48 U/L 05/09/2020 5 :45 AM [employer] AND [employer] SALESPERSON DTL (AST), S Alkaline Phosphatase, S 107 40 - 129 U/L 05/09/2020 5: 45 AM [employer]TA[employer] AND [employer] SALESPERSON DTL Alanine Aminotransferase 13 7 - 55 U/L 05/09/2020 5:4 5 AM [employer]TA[employer] AND [employer]ERIES SALESPERSON DTL (ALT), S Bilirubin, Total, S <0.2 <=1.2 mg/dL 05/09/2020 5:45 AM [employer]TA[employer] AND [employer] SALESPERSON DTL Specimen Anatomical Collection Method Collection Time Receive d Time (Source) Location / / Volume Laterality Blood (Blood, 05/09/2020 4:54 AM 05/09/20 5:14 Venous) [employer] SALESPERSON AM [employer] SALESPERSON Niels Casey M.D. LAB BLOOD ADD-ON Performing Organization Address City/State/ZIP Code Phon e Number [facility] - [address] [place], [place] [address] [facility] [place] [address] [address] (ABNORMAL) CBC with Differential, Blood (05/09/2020 4:54 AM [employer] SALESPERSON) [facility] gist Method Time Signature Hemoglobin 10.5 (L) 13.2 - 05/09/2020 DTL 16.6 g/dL 5:28 AM [employer] SALESPERSON Hematocrit 32.7 (L) 38.3 - 05/09/2020 DTL 48.6 % 5:28 AM [employer] SALESPERSON Erythrocytes 3.51 (L) 4.35 - 05/09/2020 DTL 5.65 5:28 AM [employer] SALESPERSON x10(12)/L MCV 93.2 78.2 - 05/09/2020 DTL 97.9 fL 5:28 AM [employer] SALESPERSON RBC Distrib Width 14.7 (H) 11.8 - 05/09/2020 DTL 14.5 % 5:28 AM [employer] SALESPERSON Platelet Count 398 (H) 135 - 317 05/09/2020 DTL x10(9)/L 5:28 AM [employer] SALESPERSON Leukocytes 14.9 (H) 3.4 - 9.6 05/09/2020 DTL x10(9)/L 5:28 AM [employer] SALESPERSON Neutrophils 10.58 (H) 1.56 - 05/09/2020 DTL 6.45 5:28 AM [employer] SALESPERSON x10(9)/L Lymphocytes 2.96 0.95 - 05/09/2020 DTL 3.07 5:28 AM [employer] SALESPERSON x10(9)/L Monocytes 1.21 (H) 0.26 - 05/09/2020 DTL 0.81 5:28 AM [employer] SALESPERSON x10(9)/L Eosinophils 0.15 0.03 - 05/09/2020 DTL 0.48 5:28 AM [employer] SALESPERSON x10(9)/L Basophils 0.04 0.01 - 05/09/2020 DTL 0.08 5:28 AM [employer] SALESPERSON x10(9)/L Specimen Anatomical Collection Method Collection Time Receive d Time (Source) Location / / Volume Laterality Blood (Blood, 05/09/2020 4:54 AM 05/09/20 20 5:15 Venous) [employer] SALESPERSON AM [employer] SALESPERSON Niels Casey M.D. LAB BLOOD ADD-ON Performing Organization Address City/State/ZIP Code Phon e Number [facility] - [address] [place], [place] [address] [facility] [place] [address] [address] (ABNORMAL) CRP (C-Reactive Protein) (05/09/2020 4:54 AM [employer] SALESPERSON) athologist [facility] C-Reactive 43.8 (H) <=8.0 mg/L 05/09/2020 DTL Protein (CRP), 5:45 AM [employer] SALESPERSON S Specimen Anatomical Collection Method Collection Time Receive d Time (Source) Location / / Volume Laterality Blood (Blood, 05/09/2020 4:54 AM 05/09/20 20 5:14 Venous) [employer] SALESPERSON AM [employer] SALESPERSON Bebeto Ayala M.D., M.S. LAB BLOOD ADD-ON Performing Organization Address City/[facility] Phon e Number [facility] - [address] [place] [address] Laboratories[address] Ferritin (05/09/2020 4:54 AM [employer] SALESPERSON) athologist [facility] Ferritin, S 89 24 - 336 05/09/2020 DTL mcg/L 6:13 AM [employer] SALESPERSON Specimen Anatomical Collection Method Collection Time Receive d Time (Source) Location / / Volume Laterality Blood (Blood, 05/09/2020 4:54 AM 05/09/20 20 5:14 Venous) [employer] SALESPERSON AM [employer] SALESPERSON Bebeto Ayala M.D., M.S. LAB BLOOD ADD-ON Performing Organization Address City/[facility] Phon e Number [facility] - [id number] [place] [address] (ABNORMAL) D-Dimer (05/09/2020 4:54 AM [employer]TA[employer]ER[employer] SALESPERSON) athologist [facility] D-Dimer, P 1257 (H) <=500 ng/mL 05/09/2020 DTL FEU 5:53 AM [employer] SALESPERSON Comment: D-dimer concentrations increase with age . [...] 05/09/2020 4:54 AM 05/09/20 20 5:14 Venous) [employer] SALESPERSON AM [employer] SALESPERSON Bebeto Ayala M.D., M.S. LAB BLOOD ADD-ON Performing Organization Address City/[facility] Phon e Number [facility] - [address] [place], [place] [address] [facility] [place] [address] [facility] [address] [facility] Glucose, POCT (05/08/2020 10:13 PM [employer] SALESPERSON) Analysis Performed At Patho logist Time Signature Glucose, POCT, 90 70 - 140 05/08/2020 PCLX B mg/dL 10:16 PM [employer] SALESPERSON Site Capillary 05/08/2020 PCLX 10:16 PM [employer] SALESPERSON Last Intake 3-4 hours 05/08/2020 PCLX 10:16 PM [employer] SALESPERSON Specimen Anatomical Collection Method Collection Time Receive d Time (Source) Location / / Volume Laterality Blood 05/08/2020 10:13 05/08/2020 PM [employer] SALESPERSON 10:16 PM [employer] SALESPERSON Unknown Provider LAB POCT ORDERABLES-MANUAL Performing Organization Address [facility] Phon e Number POC [facility] [address] [place] [address] [place] [address] [place] POC [address] [facility] Glucose, POCT (05/08/2020 6:33 PM [employer] SALESPERSON) P athologist Signature Glucose, POCT, 94 70 - 140 05/08/2020 [facility]CL[facility] B mg/dL 6:45 PM [employer] SALESPERSON Specimen Anatomical Collection Method Collection Time Receive d Time (Source) Location / / Volume Laterality Blood 05/08/2020 6:33 PM 0 6:46 [employer] SALESPERSON PM [employer] SALESPERSON Unknown Provider LAB POCT ORDERABLES-MANUAL Performing Organization Address City/[facility] Phon e Number POC [facility] [address] [place] [address] [place] [address] [facility] 200 [facility] US Kidneys with Renal Artery Doppler (05/08/2020 5:47 PM [employer] SALESPERSON) Anatomical Region Laterality Modality Abdomen, Renal, Ultrasound RST LOS, Ultrasound ARZ LOS, N/A Ultrasound Ultrasound FLA LOS, Procedural Specimen (Source) Anatomical Collection Method Collection Time Re ceived Time Location / / Volume Laterality 05/08/2020 5:46 PM [employer] SALESPERSON Impressions 05/09/2020 7:51 AM [employer] SALESPERSON 1. Negative for renal artery stenosis where seen. Note that the bilateral renal arteries were segmentally visualized due to obscuring bowel gas. 2. Increased echogenicity and elevated r esistive indices in the bilateral kidneys, which can be seen with chronic renal parenchymal disease. Narrative 05/09/2020 7:51 AM [employer]ER[employer] SALESPERSON EXAM: US KIDNEYS WITH RENAL ARTERY DOPPLER [...] seen with chronic renal parenchymal disease. Niels ETINENE US PROCEDURES (TTE) 2D ECHO DOPPLER COLOR (05/08/2020 4:32 PM [employer]TA[employer] AND [employer]IES SALESPERSON) [facility] Method Time Signature Ejection Fraction 61 [...] / / Volume Laterality 05/08/2020 2:52 PM [employer] SALESPERSON Impressions 05/08/2020 4:44 PM [employer] SALESPERSON Echocardiogram performed per COVID-19 protocol (COVID results [...] effusion. For the complete report, see the [employer] Documents. Narrative 05/08/2020 4:44 PM [employer]IES SALESPERSON For the complete report, see the [employer] Documents. Final Impressions 1. Normal left ventricular [...] 05/08/2020 For the complete report, see the [employer] Documents. Final Impressions 1. Normal left ventricular [...] ECHO PROCEDURES Renin Activity (05/08/2020 3:10 PM [employer] SALESPERSON) athologist Signature Renin Activity, <0.6 ng/mL/h 05/12/2020 [facility] P 2:55 PM [employer] SALESPERSON Comment: ----REFERENCE VALUE---- (Peripheral vein specimen) Na-deplete, upright: ??Mean: 5.9 ??Range: 2.9-10.8 Na-replete, upright: ??Mean: 1.0 ??Range: < or =0.6-3.0 ----ADDITIONAL INFORMATION---- Testing performed by Liquid Chromatograp hy-Tandem Mass Spectrometry (LC-MS/MS). This test was developed and its performa nce characteristics determined by [facility] in a manner consistent with CLIA requirements. This test has not been cleared or approved by the [place] and Drug Administration. Specimen Anatomical Collection Method Collection Time Receive d Time (Source) Location / / Volume Laterality Blood (Blood, 05/08/2020 3:10 PM 05/10/20 20 Venous) [employer] SALESPERSON 10:34 AM [employer] SALESPERSON Niels Casey M.D. LAB BLOOD NON ADD-ON Performing Organization Address City/State/ZIP Code Phon e Number [facility] [address] [place] [address] [place] [address] CENTER Critical access [place] [address] Laboratory Medicine and Pathology [address] RAIN Aldosterone (05/08/2020 3:10 PM [employer] SALESPERSON) P athologist Signature Aldosterone, P 4.3 <=21 ng/dL 05/13/2020 [facility] 9:34 AM [employer] AND [employer]APERIES SALESPERSON Comment: ----ADDITIONAL INFORMATION---- Reference range for patients 11 years an d older is based on upright A.M. collection from subjects without sodium restrictions. This test was developed and its performa nce characteristics determined by [facility] in a manner consistent with CLIA requirements. This test has not been cleared or approved by the [place] and Drug Administration. Specimen Anatomical Collection Method Collection Time Receive d Time (Source) Location / / Volume Laterality Blood (Blood, 05/08/2020 3:10 PM 05/10/20 20 Venous) [employer] SALESPERSON 12:29 PM [employer] SALESPERSON Niels Casey M.D. LAB BLOOD NON ADD-ON Performing Organization Address City/State/ZIP Code Phon e Number [facility] [address] [place] [address] [facility] [place] [address] Laboratory Medicine and Pathology [address] RAIN Influenza A/B, SARS CoV-2, PCR, Rapid, Varies (05/08/2020 2:34 PM [employer] SALESPERSON) athologist Signature Influenza A, CANCELED 06/09/2020 [facility] PCR, Rapid, V 12:21 PM [employer] SALESPERSON Comment: Result canceled by the ancillar y. Influenza B, PCR, Rapid, V CANCELED 06/09/2020 12 :21 PM [employer] SALESPERSON [facility] Comment: Result canceled by the ancillar y. SARS CoV-2, PCR, Rapid, V CANCELED Undetected 06/09/2020 12 :21 PM [employer]ERIES SALESPERSON [facility] Comment: REVISED RESULTS ----ADDITIONAL INFORMATION---- Testing was performed using the [employer] RS-CoV-2 and Influenza A/B Reagent assay from [employer], which has received Emergency Use Authori zation(EUA) by the U.S. Food and Drug Administration . Fact sheets for this Emergency Use Autho rization (EUA) assay can be found at the following link s: For Healthcare Providers: https://www.fda.gov/media/912854/downloa d For Patients: https://www.fda.gov/media/082178/downloa d ----PREVIOUSLY REPORTED ---- Undetected, Flagged as: Normal (Reported 05/08/2020 15:03) Infl A/B, SARS CoV-2, PCR, Source CANCELED 2020 12:21 PM CURTAINS AND DRAPERIES SALESPERSON [facility] Comment: REVISED RESULTS ----PREVIOUSLY REPORTED ---- Swab, Nasopharynx, Flagged as: Normal (Reported 05/08/2020 14:34) Specimen Anatomical Collection Method Collection Time Receive d Time (Source) Location / / Volume Laterality Varies 05/08/2020 2:34 PM 0 2:34 CURTAINS AND DRAPERIES SALESPERSON PM CURTAINS AND DRAPERIES SALESPERSON Narrative [facility] - 06/09/2020 12:21 PM CURTAINS AND DRAPERIES SALESPERSON Influ A/B, SARS CoV-2, PCR, Rapid,V was cancelled on 06/09/2020 at 12:21; [id number] Bebeto Ayala M.D., M.S. LAB MICROBIOLOGY - GENERAL ORDERABLES Performing Organization Address City/[facility] Phon e Number [facility] - [address] [place], [place] [address] [place] [address] [facility] [address] [facility] (ABNORMAL) Glucose, POCT (05/08/2020 1:01 PM CURTAINS AND DRAPERIES SALESPERSON) Analysis Performed At Patho logist Time Signature Glucose, POCT, 252 (H) 70 - 140 05/08/2020 PCLX B mg/dL 1:18 PM CURTAINS AND DRAPERIES SALESPERSON Site Capillary 05/08/2020 PCLX 1:18 PM CURTAINS AND DRAPERIES SALESPERSON Last Intake > 4 hours 05/08/2020 PCLX 1:18 PM CURTAINS AND DRAPERIES SALESPERSON Specimen Anatomical Collection Method Collection Time Receive d Time (Source) Location / / Volume Laterality Blood 05/08/2020 1:01 PM 0 1:18 CURTAINS AND DRAPERIES SALESPERSON PM CURTAINS AND DRAPERIES SALESPERSON Unknown Provider LAB POCT ORDERABLES-MANUAL Performing Organization Address City/State/[facility] Code Phon e Number POC [facility] [address] [place] [address] [place] [address] [facility] [address] [facility] Interpretation of Outside CT Chest (05/08/2020 12:45 PM CURTAINS AND DRAPERIES SALESPERSON) Anatomical Region Laterality Modality Chest, Thoracic RST LOS, Thoracic ARZ LOS, Thoracic N/A Computed Tomography FLA LOS, Other, Body Specimen (Source) Anatomical Collection Method Collection Time Re ceived Time Location / / Volume Laterality 05/08/2020 1:05 PM CURTAINS AND DRAPERIES SALESPERSON Impressions 05/08/2020 1:13 PM CURTAINS AND DRAPERIES SALESPERSON 1. Findings consistent with volume overload/congestive failure. 2. Multifocal groundglass opacities most notable in the right apex could also be related to edema, but the distribution i s not typical for that. These are most suggestive of a superimposed infectious/ inflammatory process. COVID-19 pneumonia is possible, but this is not a specific appearance. 3. Mediastinal lymphadenopathy, indeterm inate. Narrative 05/08/2020 1:13 PM CURTAINS AND DRAPERIES SALESPERSON EXAM: ??INTERPRETATION OF OUTSIDE CT CHEST. Outside [...] CBC with Differential, Blood (05/08/2020 12:16 PM CURTAINS AND DRAPERIES SALESPERSON) [facility] Method Time Signature Hemoglobin 10.3 (L) 13.2 - 05/08/2020 DTL 16.6 g/dL 12:42 PM CURTAINS AND DRAPERIES SALESPERSON Hematocrit 31.9 (L) 38.3 - 05/08/2020 DTL 48.6 % 12:42 PM CURTAINS AND DRAPERIES SALESPERSON Erythrocytes 3.40 (L) 4.35 - 05/08/2020 DTL 5.65 12:42 PM CURTAINS AND DRAPERIES SALESPERSON x10(12)/L MCV 93.8 78.2 - 05/08/2020 DTL 97.9 fL 12:42 PM CURTAINS AND DRAPERIES SALESPERSON RBC Distrib Width 14.5 11.8 - 05/08/2020 DTL 14.5 % 12:42 PM CURTAINS AND DRAPERIES SALESPERSON Platelet Count 363 (H) 135 - 317 05/08/2020 DTL x10(9)/L 12:42 PM CURTAINS AND DRAPERIES SALESPERSON Leukocytes 11.4 (H) 3.4 - 9.6 05/08/2020 DTL x10(9)/L 12:42 PM CURTAINS AND DRAPERIES SALESPERSON Neutrophils 10.47 (H) 1.56 - 05/08/2020 DTL 6.45 12:42 PM CURTAINS AND DRAPERIES SALESPERSON x10(9)/L Lymphocytes 0.66 (L) 0.95 - 05/08/2020 DTL 3.07 12:42 PM CURTAINS AND DRAPERIES SALESPERSON x10(9)/L Monocytes 0.21 (L) 0.26 - 05/08/2020 DTL 0.81 12:42 PM CURTAINS AND DRAPERIES SALESPERSON x10(9)/L Eosinophils <0.03 0.03 - 05/08/2020 DTL 0.48 12:42 PM CURTAINS AND DRAPERIES SALESPERSON x10(9)/L Basophils <0.03 0.01 - 05/08/2020 DTL 0.08 12:42 PM CURTAINS AND DRAPERIES SALESPERSON x10(9)/L Specimen Anatomical Collection Method Collection Time Receive d Time (Source) Location / / Volume Laterality Blood (Blood, 05/08/2020 12:16 05/08/2020 Venous) PM CURTAINS AND DRAPERIES SALESPERSON 12:34 PM CURTAINS AND DRAPERIES SALESPERSON Bebeto Ayala M.D., M.S. LAB BLOOD ADD-ON Performing Organization Address City/State/ZIP Code Phon e Number [facility] - [address] [place], [place] [address] [facility] [place] [address] [address] (ABNORMAL) Basic Metabolic Panel (05/08/2020 12:16 PM CURTAINS AND DRAPERIES SALESPERSON) Analysis Performed At Patho logist Time Signature Potassium, S 4.5 3.6 - 5.2 05/08/2020 DTL mmol/L 1:00 PM CURTAINS AND DRAPERIES SALESPERSON Sodium, S 138 135 - 145 05/08/2020 DTL mmol/L 1:00 PM CURTAINS AND DRAPERIES SALESPERSON Chloride, S 103 98 - 107 05/08/2020 DTL mmol/L 1:00 PM CURTAINS AND DRAPERIES SALESPERSON Bicarbonate, S 22 22 - 29 05/08/2020 DTL mmol/L 1:00 PM CURTAINS AND DRAPERIES SALESPERSON Anion Gap 13 7 - 15 05/08/2020 DTL 1:00 PM CURTAINS AND DRAPERIES SALESPERSON BUN (Blood Urea 28 (H) 8 - 24 05/08/2020 DTL Nitrogen), S mg/dL 1:00 PM CURTAINS AND DRAPERIES SALESPERSON Creatinine 2.25 (H) 0.74 - 05/08/2020 DTL 1.35 mg/dL 1:00 PM CURTAINS AND DRAPERIES SALESPERSON eGFR-Non 29 (L) >=60 05/08/2020 DTL Black/ mL/min/BSA 1:00 PM CURTAINS AND DRAPERIES SALESPERSON [place] Comment: ----ADDITIONAL INFORMATION---- Estimated GFR calculated using the 2009 CKD_EPI creatinine equation. eGFR-Black/ 33 (L) >=60 mL/min/BSA 2019 1:00 PM CURTAINS AND DRAPERIES SALESPERSON DTL Comment: ----ADDITIONAL INFORMATION---- Estimated GFR calculated using the 2009 CKD_EPI creatinine equation. Calcium, Total, S 7.7 (L) 8.8 - 10.2 mg/dL 05/08/2020 1:00 PM CURTAINS AND DRAPERIES SALESPERSON DTL Glucose, S 278 (H) 70 - 140 mg/dL 05/08/2020 1:00 PM CURTAINS AND DRAPERIES SALESPERSON D TL Specimen Anatomical Collection Method Collection Time Receive d Time (Source) Location / / Volume Laterality Blood (Blood, 05/08/2020 12:16 05/08/2020 Venous) PM CURTAINS AND DRAPERIES SALESPERSON 12:34 PM CURTAINS AND DRAPERIES SALESPERSON Bebeto Ayala M.D., M.S. LAB BLOOD ADD-ON Performing Organization Address City/State/ZIP Code Phon e Number [facility] - [address] [place], [place] [address] [facility] [place] [address] [address] documented in this [...] 10 mg (NORVASC) Given 05/10/2020 8:04 AM CURTAINS AND DRAPERIES SALESPERSON 10 mg 10 mg, oral, Daily, First dose on Tue05/09/20 at 0900 Given 05/09/2020 9:16 AM CURTAINS AND DRAPERIES SALESPERSON [address] tablet 325 mg Given 05/09/2020 5:29 PM CURTAINS AND DRAPERIES SALESPERSON 325 mg 325 mg, oral, Every evening, First dose on Tue05/08/20 at 1800, Swallow whole. Do NOT crush, chew, or split tablet. Given 05/08/2020 6:47 PM CURTAINS AND DRAPERIES SALESPERSON 325 mg atorvastatin tablet 20 mg (LIPITOR) Given 05/09/2020 9:23 PM CURTAINS AND DRAPERIES SALESPERSON 20 mg 20 mg, oral, Daily at bedtime, First dose on Tue05/08/20 at 2100 Given 05/08/2020 8:29 PM CURTAINS AND DRAPERIES SALESPERSON 20 mg carvediloL tablet 25 mg (COREG) Given 05/10/2020 8:04 AM CURTAINS AND DRAPERIES SALESPERSON 25 mg 25 mg, oral, 2 times daily with meals, First dose on Tue05/09/20 at 0800 Given 05/09/2020 4:52 PM CURTAINS AND DRAPERIES SALESPERSON 25 mg Given 05/09/2020 7:44 AM CURTAINS AND DRAPERIES SALESPERSON 25 mg cefTRIAXone in dextrose (iso-osm) IVPB New Bag 05/08/2020 1:25 PM CURTAINS AND DRAPERIES SALESPERSON 1 g 200 mL/hr 1 g (ROCEPHIN) 1 g, intravenous, at 200 mL/hr, Administer over 15 Minutes, Every 24 hours, First dose on Linda 05/08/20 at 1230, premix bag, Drug Monitoring Program: Pharmacist to adjust medication dosing based on indication and drug clearance factors., Indications: Chronic antibiotic suppression, Respiratory tract infection, healthcare associated chlorthalidone tablet 12.5 mg (HYGROTON) Given 05/09/2020 2:47 PM CURTAINS AND DRAPERIES SALESPERSON 12.5 mg 12.5 mg, oral, Daily, First dose on Tue05/09/20 at 1430 chlorthalidone tablet 12.5 mg (HYGROTON) Given 05/09/2020 7:36 PM CURTAINS AND DRAPERIES SALESPERSON 12.5 mg 12.5 mg, oral, Once, On Tue05/09/20 at 1900, For 1 dose chlorthalidone tablet 25 mg (HYGROTON) Given 05/10/2020 8:04 AM CURTAINS AND DRAPERIES SALESPERSON 25 mg 25 mg, oral, Daily, First dose (after last modification) on 05/10/20 at 0730 cloNIDine tablet 0.1 mg (CATAPRES) Given 05/08/2020 3:14 PM CURTAINS AND DRAPERIES SALESPERSON 0.1 mg 0.1 mg, oral, 2 times [...] 10 mg (SINEquan) Given 05/09/2020 9:23 PM CURTAINS AND DRAPERIES SALESPERSON 10 mg 10 mg, oral, Daily at bedtime, First dose on Linda 05/08/20 at 2100 Given 05/08/2020 8:29 PM CURTAINS AND DRAPERIES SALESPERSON [address] capsule 60 mg (CYMBALTA) Given 05/09/2020 9:23 PM CURTAINS AND DRAPERIES SALESPERSON 60 mg 60 mg, oral, Daily, First dose on Linda 05/08/20 at 2100, See tube feeding guidelines for tube feeding administration instructions. Given 05/08/2020 8:29 PM CURTAINS AND DRAPERIES SALESPERSON 60 mg glucagon injection 1 mg (GlucaGen) [...] gel. heparin (porcine) Given 05/10/2020 6:20 AM CURTAINS AND DRAPERIES SALESPERSON 5,000 Units Right Lower injection 5,000 Units Abdomen 5,000 Units, subcutaneous, Every 8 hours scheduled, First dose on Tue05/08/20 at 1145 Given 05/09/2020 9:23 PM CURTAINS AND DRAPERIES SALESPERSON 5,000 Units Left Lower Abdomen Given 05/09/2020 2:47 PM CURTAINS AND DRAPERIES SALESPERSON 5,000 Units Right Lower Abdomen insulin aspart U-100 Given 05/10/2020 12:02 PM CURTAINS AND DRAPERIES SALESPERSON 6 Units Left Upper Abdomen injection 0-13 [...] writing Insulin orders Given 05/09/2020 5:26 PM CURTAINS AND DRAPERIES SALESPERSON 2 Units Right Lower Abdomen Given 05/08/2020 1:41 PM CURTAINS AND DRAPERIES SALESPERSON 6 Units Left Lower Abdomen insulin aspart U-100 Given 05/09/2020 9:18 AM CURTAINS AND DRAPERIES SALESPERSON 6 Units Left Lower Abdomen injection 6 Units (NovoLOG FlexPen) 6 Units, subcutaneous, Daily with breakfast, First dose (after last modification) on Tue05/09/20 at 0800 insulin aspart U-100 Given 05/08/2020 2:21 PM CURTAINS AND DRAPERIES SALESPERSON 8 Units Right Lower Abdomen injection 8 Units (NovoLOG FlexPen) 8 Units, subcutaneous, Daily with lunch, First dose on Tue05/08/20 at 1200 insulin aspart U-100 Given 05/08/2020 6:42 PM CURTAINS AND DRAPERIES SALESPERSON 8 Units Right Lower Abdomen injection 8 Units (NovoLOG FlexPen) 8 Units, subcutaneous, Daily with dinner, First dose on Tue05/08/20 at 1700 insulin glargine injection Given 05/09/2020 9:23 PM CURTAINS AND DRAPERIES SALESPERSON 22 Units Left Upper Abdomen 22 Units 22 Units, subcutaneous, Daily at bedtime, First dose (after last modification) on Tue05/09/20 at 2100 insulin glargine injection Given 05/08/2020 8:31 PM CURTAINS AND DRAPERIES SALESPERSON 30 Units Left Upper Abdomen 30 Units 30 Units, subcutaneous, Daily at bedtime, First dose on Tue05/08/20 at 2100 metoprolol succinate 24 hr tablet 200 mg Given 05/08/2020 1:03 P M CURTAINS AND DRAPERIES SALESPERSON 200 mg (TOPROL-XL) 200 mg, oral, Daily, First dose on Linda 05/08/20 at 1215, Do NOT crush or chew. Tablet may be split on score if needed. metoprolol tartrate tablet 50 mg (LOPRES SOR) Given 05/09/2020 11:44 PM CURTAINS AND DRAPERIES SALESPERSON 50 mg 50 mg, oral, Once, On [...] mL/hr Right Antecubital NaCl (iso-osm) 200 mL CURTAINS AND DRAPERIES SALESPERSON infusion (CARDENE) 5-15 mg/hr (25-75 mL/hr), intravenous, Continuous, Starting on Linda 05/08/20 at 1445, Premix ba mg in 200 mL. Protect from light., Initiate at: 5 mg/hr, Titrate at: 2.5 mg/hr every 15 min., Goal: Other, Goal: SBP<180 NIFEdipine XL 24 hr tablet 30 mg (PROCARDIA Given 05/08/2020 2:2 6 PM CURTAINS AND DRAPERIES SALESPERSON 30 mg XL) 30 mg, oral, Once, On Linda 05/08/20 at 1430, For 1 dose, Swallow whole. Do NOT crush, chew, or split tablet. nortriptyline capsule 100 mg (PAMELOR) Given 05/09/2020 9:23 PM CURTAINS AND DRAPERIES SALESPERSON 100 mg 100 mg, oral, Daily at bedtime, First dose on Linda 05/08/20 at 2100 Given 05/08/2020 8:29 PM CURTAINS AND DRAPERIES SALESPERSON 100 mg oxyCODONE IR tablet 10 mg (ROXICODONE) Given 05/09/2020 4:55 PM CURTAINS AND DRAPERIES SALESPERSON 10 mg 10 mg, oral, Every 4 hours PRN, moderate pain or score 4-6 of 10, severe pain or score 7-10 of 10, Starting on Linda 05/08/20 at 1136 Given 05/08/2020 4:49 PM CURTAINS AND DRAPERIES SALESPERSON [address] tablet 40 mg (PROTONIX) Given 05/10/2020 6:20 AM CURTAINS AND DRAPERIES SALESPERSON 40 mg 40 mg, oral, Daily, First dose on Tue05/09/20 at 0700, Swallow whole. Do NOT crush, chew, or split tablet. Given 05/09/2020 6:20 AM CURTAINS AND DRAPERIES SALESPERSON 40 mg pramipexole tablet 0.5 mg (MIRAPEX) Given 05/09/2020 9:23 PM CURTAINS AND DRAPERIES SALESPERSON 0.5 mg 0.5 mg, oral, Daily at bedtime, First dose on Tue05/08/20 at 2100 Given 05/08/2020 8:30 PM CURTAINS AND DRAPERIES SALESPERSON 0.5 mg sulfur hexafluoride microspheres injection Given 05/08/2020 4:00 PM CURTAINS AND DRAPERIES SALESPERSON 2 mL (LUMASON) intravenous, As needed, contrast, Starting on Tue05/08/20 at 1604, See protocol. Reconstitute each 25 mg vial with 5 mL NS. documented in this encounter Active and Recently Administered Medications Times are shown in CURTAINS AND DRAPERIES SALESPERSON. Scheduled Medication Order 05/08/2020 05/09/2020 05/10/2020 amLODIPine [...] (ROCEPHIN) (CANCELED) 1325 (New Bag - Provider: Mayrlou Hopkins R.N.) 1 g, intravenous, at 200 [...] mg of calcium, oral, Every 2 hour MO N, heartburn, indigestion, Starting Tue05/08/20 at 1131, [...] COVID19 Pending 05/08/2020 05/08/2020 05/08/2020 2:44 PM CURTAINS AND DRAPERIES SALESPERSON Assessment Noted Time PHQ-9 Depression Total Score: 3 01/03/2018 10:38 AM CD T documented as of this encounter Care Teams Nanofabrication Specialist Relationship Specialty Start Date End Date Elsewhere, Pcp PCP - General Family Medicine 01/29/20 documented as of this encounter
--- OUTSIDE RECORDS SUMMARY | 2022-04-28 14:42 | XMS_ITS | Encounter Summary ---
:1950 Author Organization [facility] Address [address] [place] [id number] Care Team Providers Name Role Phone Unavailable Primary Care Provider Unavailable Encounter Details Date Type Department Care Team Description 09/17/2019 Hospital Encounter Department of Kemar Velásquez Atheros clerosis Radiology, [facility] Amy Arteriosclerosis [facility], in [address] [place] [address] Obliter[place], [place] Extremity With [place] [address] Claudication (HCC) [address] [place] [address] [place], [place] (Work) [phone] Social History Tobacco Use Types Packs/Day Years [...] How often do you attend orthodox or episcopalian services? 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
--- OUTSIDE RECORDS SUMMARY | 2022-04-28 14:42 | XMS_ITS | Encounter Summary ---
:1950 Author Organization [facility] Address [address] [place] [address] Care Team Providers Name Role Phone Unavailable Primary Care Provider Unavailable Reason for Referral Outpatient (Routine) - Closed Specialty Diagnoses / Procedures Referred By Contact Refer red To Contact Diagnoses Peripheral Arterial Disease (HCC) Kemar Velásquez M.B.B.S. [facility] Procedures Lower Extremity Arterial (MIMI) - TCPO2 (Wound) [address] [place] [phone] Referral ID Status Reason Start Date Expiration Date Visits Requ ested Visits Authorized [id number] Closed 09/17/2019 09/16/2020 1 1 Outpatient (Routine) - Closed Specialty Diagnoses / Procedures Referred By Contact Refer red To Contact Vascular Surgery Kemar Velásquez M.B.B. S. [facility] [address] [place] [phone] Referral ID Status Reason Start Date Expiration Date Visits Requ ested Visits Authorized [id number] Closed 09/17/2019 09/16/2020 1 1 Outpatient (Routine) - Closed Specialty Diagnoses / Procedures Referred By Contact Refer red To Contact Nutrition Diagnoses Peripheral Arterial Disease (HCC) Tobacco Use Kemar Velásquez M.B.B.S. [facility] [address] [place] [address] Referral ID Status Reason Start Date Expiration Date Visits Requ ested Visits Authorized [id number] Closed 09/17/2019 09/16/2020 1 1 Outpatient (Routine) - Closed Specialty Diagnoses / Procedures Referred By Contact Refer red To Contact Pulmonary Medicine / Diagnoses Peripheral Arterial Disease (HCC) [facility] [address] [place] [phone] Referral ID Status Reason Start Date Expiration Date Visits Requ ested Visits Authorized [id number] Closed 09/17/2019 09/16/2020 1 1 Reason for Visit Outpatient (Routine) - Closed Specialty Diagnoses / Procedures Referred By Contact Refer red To Contact Vascular Surgery Kemar Velásquez M.B.B. S[facility] [address] [place] [phone] Referral ID Status Reason Start Date Expiration Date Visits Requ ested Visits Authorized [id number] Closed 06/26/2019 06/25/2020 1 1 Encounter Details Date Type Department Care Team Description 09/17/2019 Office Visit Division of Vascular and Kemar Velásquez Pe ripheral Arterial Disease (HCC) (Primary Dx); Endovascular Surgery in M.B.B.S. Tobacco Use [place], [place] [address] [place] [address] [place] [phone] Social History Tobacco Use Types Packs/Day Years [...] How often do you attend rastafarian or uatsdin services? 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 They are both agreeable to the plan and look forward to meeting with our manufacturer. I would like to see him back [...] focal stenosis, high-grade stenosis of the left SUSTAINABILITY PURCHASING AGENT, new and stable moderate stenosis of the [...] osis. Stable elevated velocities of the right WEBSITE DESIGNER without focal stenosis. 3. Stable stented left SFA without steno sis. 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 4. New high-grade stenosis of the left p roximal SUSTAINABILITY PURCHASING AGENT. Narrative 08/04/2020 10:59 AM CDT EXAM: US [...] osis. Stable elevated velocities of the right WEBSITE DESIGNER without focal stenosis. 3. Stable stented left SFA without steno sis. 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 4. New high-grade stenosis of the left p roximal SUSTAINABILITY PURCHASING AGENT. Kemar ETIENNE US PROCEDURES US Aorta Iliac [...]
--- OUTSIDE RECORDS SUMMARY | 2022-04-28 14:42 | XMS_ITS | Encounter Summary ---
:[address] 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 [facility] Procedures Lower Extremity Arterial (MIMI) - TCPO2 (Wound) [address] [place] [address] Referral ID Status Reason Start Date Expiration Date Visits Requ ested Visits Authorized [id number] Closed 09/17/2019 09/16/2020 1 1 Encounter Details Date Type Department Care Team Description 09/17/2019 Hospital Encounter Department of Kemar Velásquez Atheros clerosis Of [place] Ar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 (HCC); Vascular Medicine M.B.B.S. Atherosclerosis Of [place] Arteries Of Le ft Leg With Ulceration Of Unspecified Site (HCC); in [address] Peripheral Arterial Disease (HCC) [place], [place] [address] [facility] [address] [place], [place] [phone] (Work) [phone] Social History Tobacco Use Types Packs/Day Years [...] How often do you attend gnosticist or confucianist services? 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 Claudication Right Leg (HCC) Atherosclerosis Of [place] Arteries Of Left Leg With Ulceration Of [...] this encounter Visit Diagnoses Diagnosis Atherosclerosis Of [place] Arteries Of Ex tremities With Intermittent Claudication Right Leg (HCC) Atherosclerosis Of [place] Arteries Of Le ft Leg With Ulceration Of Unspecified Site (HCC) Peripheral Arterial Disease (HCC) documented in this encounter Additional Health Concerns Assessment Noted Time PHQ-9 Depression Total Score: 3 01/03/2018 10:38 AM CD T documented as of this encounter
--- OUTSIDE RECORDS SUMMARY | 2022-04-28 14:42 | XMS_ITS | Encounter Summary ---
:1950 Author Organization [facility] Address [address] [place] [address] Care Team Providers Name Role Phone Elsewhere, Pcp Primary Care Provider Unavailable Reason for Visit Reason Comments Med Refill Encounter Details Date Type Department Care Team Description 02/26/2020 Refill Department of Neurology in Yessy Cohen M.D., Med Refill [place], [place] [facility] [address] [place] [address] [place] [phone] (Wo rk) Social History Tobacco Use Types [...] How often do you attend caodaism or mormonism services? 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
--- OUTSIDE RECORDS SUMMARY | 2022-04-28 14:42 | XMS_ITS | Encounter Summary ---
:1950 Author Organization [facility] Address [address] [place] [address] Care Team Providers Name Role Phone Unavailable Primary Care Provider Unavailable Reason for Visit Outpatient (Routine) - Closed Specialty Diagnoses / Procedures Referred By Contact Refer red To Contact Nutrition Diagnoses Peripheral Arterial Disease (HCC) Tobacco Use Kemar Velásquez M.B.BFeiS. [facility] [address] [place] [address] Referral ID Status Reason Start Date Expiration Date Visits Requ ested Visits Authorized [id number] Closed 09/17/2019 09/16/2020 1 1 Encounter Details Date Type Department Care Team Description 09/25/2019 Clinical Support Department of July Hernandez Arterial Disease (HCC); Nutrition in A, RDN, LD Tobacco Use [place], [place] [address] [place] [phone] Social History Tobacco Use Types Packs/Day Years [...] How often do you attend yazidi or gnosticism services? 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 Breakfast: german or toast with peanut butter, black coffee [...]
--- OUTSIDE RECORDS SUMMARY | 2022-04-28 14:42 | XMS_ITS | Encounter Summary ---
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 [facility] Procedures Lower Extremity Arterial (MIMI) - TCPO2 (Wound) [address] [place] [phone] Referral ID Status Reason Start Date Expiration Date Visits Requ ested Visits Authorized [id number] Closed 09/17/2019 09/16/2020 1 1 Encounter Details Date Type Department Care Team Description 09/17/2019 Orders Only Division of Vascular Masood, Atheros clerosis Of [place] Ar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 (HCC) (Primary Dx); and Endovascular Stacy Mcgee M.S., Athero sclerosis Of [place] Arteries Of Left Leg With Ulceration Of Unspecified Site (HCC); Surgery in [facility] Peripheral Arterial Disease (HCC) [place] [address] 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 Plan of [...] this encounter Visit Diagnoses Diagnosis Atherosclerosis Of [place] Arteries Of Ex tremities With Intermittent Claudication Right Leg (HCC) - Primary Atherosclerosis Of [place] Arteries Of Le ft Leg With Ulceration Of Unspecified Site (HCC) Peripheral Arterial Disease (HCC) Atherosclerosis Of [place] Arteries Of Ex tremities With Intermittent Claudication Right Leg (HCC) Atherosclerosis Of [place] Arteries Of Le ft Leg With Ulceration Of Unspecified Site (HCC) Peripheral Arterial Disease (HCC) documented in this encounter Additional Health Concerns Assessment Noted Time PHQ-9 Depression Total Score: 3 01/03/2018 10:38 AM CD T documented as of this encounter
--- OUTSIDE RECORDS SUMMARY | 2022-04-28 14:42 | XMS_ITS | Encounter Summary ---
:1950 Author Organization [facility] Address [address] [place] [address] Care Team Providers Name Role Phone Unavailable Primary Care Provider Unavailable Reason for Visit Reason Comments COVID Nurse Line Encounter Details Date Type Department Care Team Description 09/11/2019 Clinical Communication Division of Vascular Hallie Velásquez, TOBI Nurse Line and Endovascular M.B.B.S. Surgery in [place], [facility] [address] [place], [place] [address] [place] [address] [place], [place] [phone] (Work) [phone] Social History Tobacco Use Types Packs/Day Years [...] How often do you attend catholic or mosque services? 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 no Route reply to: Kinza GARCIA [facility] SCHEDULING Scheduling Contact Number: [phone] documented in this encounter Plan of Treatment Not on filedocumented as of this encounter Visit Diagnoses Not on filedocumented in this encounter Additional Health Concerns Assessment Noted Time PHQ-9 Depression Total Score: 3 01/03/2018 10:38 AM CD T documented as of this encounter
--- OUTSIDE RECORDS SUMMARY | 2022-04-28 14:42 | XMS_ITS | Encounter Summary ---
:[address] [facility] Address [address] [place] [address] Care Team Providers Name Role Phone Elsewhere, Pcp Primary Care Provider Unavailable Reason for Visit Reason Comments COVID Inquiry Encounter Details Date Type Department Care Team Description 02/22/2020 Clinical Communication Department of [facility] Shanon Bain, COVID Inquiry [facility] [place] [address] [place], [place] [address] [place], [place] [phone] [phone] (Work) [phone] Social History Tobacco Use Types Packs/Day Years [...] How often do you attend gnosticist or bahai services? Never 03/25/2021 Do you [...] ANALYSIS DIRECTOR documented as of this encounter Miscellaneous [...] of this encounter Care Teams Director Of Campus Recreation Relationship Specialty Start Date End Date Elsewhere, Pcp PCP - General Family Medicine 01/29/20 documented as of this encounter
--- OUTSIDE RECORDS SUMMARY | 2022-04-28 14:42 | XMS_ITS | Encounter Summary ---
:1950 Author Organization [facility] Address [address] [place] [address] Care Team Providers Name Role Phone Unavailable Primary Care Provider Unavailable Encounter Details Date Type Department Care Team Description 09/14/2019 Clinical Communication Division of Vascular and Kemar Velásquez, Endovascular Surgery in [place], [place] [address] [facility] [address] [place] [phone] Social History Tobacco Use Types Packs/Day Years [...] How often do you attend pentecostalism or roman catholic services? Never 03/25/2021 Do [...] or the highest technical, or vocational p [email or web address] degree you have received? 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
--- OUTSIDE RECORDS SUMMARY | 2022-04-28 14:42 | XMS_ITS | Encounter Summary ---
:1950 Author Organization [facility] Address [address] [place] [address] Care Team Providers Name Role Phone Unavailable Primary Care Provider Unavailable Encounter Details Date Type Department Care Team Description 01/17/2020 Orders Only [facility] PCP [facility] MNT Ruthie Montero iabetes Mellitus Type 2 Renee means, With Other Circ ulatory M.Estiven Complication [address] [facility] (HCC) [place] [address] Social History Tobacco Use Types Packs/Day [...] How often do you attend moravian or sikhism services? 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
--- OUTSIDE RECORDS SUMMARY | 2022-04-28 14:42 | XMS_ITS | Encounter Summary ---
:1950 Author Organization [facility] Address [address] [place] [address] Care Team Providers Name Role Phone Elsewhere, Pcp Primary Care Provider Unavailable Reason for Visit Reason Comments Nicotine Dependence Encounter Details Date Type Department Care Team Description 02/25/2020 Clinical Communication Department of Akil Adams Dependence Nicotine Carlos Mayers M.AFei, [facility], C.T.T.S. in [place] [address] [place], [place] [address] [place] [phone] [place], [place] [phone] (Work) [phone] Social History Tobacco Use Types Packs/Day Years [...] How often do you attend buddhist or pentecostalism services? 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
--- OUTSIDE RECORDS SUMMARY | 2022-04-28 14:42 | XMS_ITS | Encounter Summary ---
:1950 Author Organization [facility] Address [address] [place] [address] Care Team Providers Name Role Phone Elsewhere, Pcp Primary Care Provider Unavailable Encounter Details Date Type Department Care Team Description 05/08/2020 Ancillary Procedure Department of Niels Casey, Radiology in .D. [place], [place] [address] [facility] [address] [place] [phone] (Wo rk) Social History Tobacco Use Types [...] often do you attend jehovah's witness or taoist services? 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 documented in this encounter Results Interpretation of Outside CT Chest (05/08/2020 12:45 PM MECHANIC/WELDER) Anatomical Region Laterality Modality Chest, Thoracic RST LOS, Thoracic ARZ LOS, Thoracic N/A Computed Tomography FLA LOS, Other, Body Specimen (Source) Anatomical Collection Method Collection Time Re ceived Time Location / / Volume Laterality 05/08/2020 1:05 PM MECHANIC/WELDER Impressions 05/08/2020 1:13 PM MECHANIC/WELDER 1. Findings consistent with volume overload/congestive failure. 2. Multifocal groundglass opacities most notable in the right apex could also be related to edema, but the distribution i s not typical for that. These are most suggestive of a superimposed infectious/ inflammatory process. COVID-19 pneumonia is possible, but this is not a specific appearance. 3. Mediastinal lymphadenopathy, indeterm inate. Narrative 05/08/2020 1:13 PM MECHANIC/WELDER EXAM: ??INTERPRETATION OF OUTSIDE CT CHEST. Outside [...] COVID19 Pending 05/08/2020 05/08/2020 05/08/2020 2:44 PM MECHANIC/WELDER Assessment Noted Time PHQ-9 Depression Total Score: 3 01/03/2018 10:38 AM CD T documented as of this encounter Care Teams Pilot Steam Yacht Relationship Specialty Start Date End Date Elsewhere, Pcp PCP - General Family Medicine 01/29/20 documented as of this encounter
--- OUTSIDE RECORDS SUMMARY | 2022-04-28 14:42 | XMS_ITS | Encounter Summary ---
:1950 Author Organization [facility] Address [address] [place] [address] Care Team Providers Name Role Phone Unavailable Primary Care Provider Unavailable Reason for Visit Reason Comments Nicotine Dependence Outpatient (Routine) - Closed Specialty Diagnoses / Procedures Referred By Contact Refer red To Contact Pulmonary Medicine / Diagnoses Peripheral Arterial Disease (HCC) [facility] M[facility]B.[facility]. [address] [place] [phone] Referral ID Status Reason Start Date Expiration Date Visits Requ ested Visits Authorized [id number] Closed 09/17/2019 09/16/2020 1 1 Encounter Details Date Type Department Care Team Description 09/25/2019 Clinical Support Department of Kemar Velásquez M .B.B.S. [address] [place] [phone] Nicotine Dependence Cigarettes With With drawal (Primary Dx); Nicotine Dependence, Riana Adams M.A., C.T.T.S. [address] [place] [phone] Peripheral Arterial Disease (HCC); [facility], in Tobacco U se [place], [place] [address] [place] [phone] Social History Tobacco Use Types Packs/Day Years [...] How often do you attend christianity or anabaptism services? 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 - 09/25/2019 11:00 AM CDT SUBJECTIVE CHIEF COMPLAINT / REASON FOR VISIT Tobacco use disorder 30 minutes consultation; CO testing HISTORY OF PRESENT ILLNESS Onesimo Walton is a 69 y.o. male who was seen at [place] [address] and is being evaluated for Tobacco Use [...] also encouraged the patient to call the [facility] if he needs any assistance with getting the Chantix if needed as well. Our [facility] physician will arrange for these scripts to go the [facility] pharmacy in [place], [place]. BEHAVIORAL PLAN: Cognitive and behavorial techniques [...]
--- OUTSIDE RECORDS SUMMARY | 2022-04-28 14:42 | XMS_ITS | Encounter Summary ---
:1950 Author Organization [facility] Address [address] [place] [address] Care Team Providers Name Role Phone Elsewhere, Pcp Primary Care Provider Unavailable Encounter Details Date Type Department Care Team Description 01/29/2020 Clinical Communication [facility] [place] [address] [place], [place] [phone] Social History Tobacco Use Types Packs/Day Years [...] How often do you attend jain or anabaptist services? 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
--- OUTSIDE RECORDS SUMMARY | 2022-04-28 14:43 | XMS_ITS | Encounter Summary ---
:1950 Author Organization [facility] Address [address] [place] [address] Care Team Providers Name Role Phone Unavailable Primary Care Provider Unavailable Reason for Visit Reason Onset Date Comments Med Refill 07/25/2019 Encounter Details Date Type Department Care Team Description 07/25/2019 Refill Department of Family Medicine, Bambi Adler, Med Refill [facility] Renee [place] M.D. [place] [address] [place] [address] [place] [address] [phone] Social History Tobacco Use Types Packs/Day Years [...] How often do you attend jewish or presybeterian services? 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
--- OUTSIDE RECORDS SUMMARY | 2022-04-28 14:43 | XMS_ITS | Encounter Summary ---
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 [facility] Procedures Lower Extremity Arterial (MIMI) - TCPO2 (Wound) ME STUDY EXT ARTERY > 2 LVLS TRAVIS [address] [place] [address] Referral ID Status Reason Start Date Expiration Date Visits Requ ested Visits Authorized [id number] Closed 07/18/2018 07/18/2019 1 1 LIFTING ENGINEER Reason for Visit Outpatient (Routine) - Closed Specialty Diagnoses / Procedures Referred By Contact Refer red To Contact Diagnoses Peripheral Arterial Disease (HCC) Atherosclerosis Of [place] Arteries Of Left Leg With Ulceration Of Unspecified Site (HCC) Atherosclerosis Of [place] Ar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 (HCC) Kemar Velásquez M.B.B.S. [facility] Procedures Lower Extremity Arterial (MIMI) - TCPO2 (Wound) ME STUDY EXT ARTERY > 2 LVLS TRAVIS [address] [place] [address] Referral ID Status Reason Start Date Expiration Date Visits Requ ested Visits Authorized [id number] Closed 07/18/2018 07/18/2019 1 1 Encounter Details Date Type Department Care Team Description 05/03/2019 Hospital Encounter Department of Kemar Velásquez Periphe ral Arterial Disease (HCC) (Primary Dx); Vascular Medicine Amy Atherosclerosis Of [place] Arteries Of Le ft Leg With Ulceration Of Unspecified Site (HCC); in [address] Atherosclerosis Of [place] Arteries Of Ex tremities With Intermittent Claudication Right Leg (HCC) [place], [place] [address] [facility] [address] [place], [place] [phone] (Work) [phone] Social History Tobacco Use Types Packs/Day Years [...] How often do you attend sabianist or shinto services? 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 Normal at all [...] Disease (HCC) - Prim dat Atherosclerosis Of [place] Arteries Of Le ft Leg With Ulceration Of Unspecified Site (HCC) Atherosclerosis Of [place] Arteries Of Ex tremities With Intermittent Claudication Right Leg (HCC) documented in this encounter Additional Health Concerns Assessment Noted Time PHQ-9 Depression Total Score: 3 01/03/2018 10:38 AM CD T documented as of this encounter
--- OUTSIDE RECORDS SUMMARY | 2022-04-28 14:43 | XMS_ITS | Encounter Summary ---
:1950 Author Organization [facility] Address [address] [place] [address] Care Team Providers Name Role Phone Unavailable Primary Care Provider Unavailable Reason for Referral Outpatient (Routine) - Closed Specialty Diagnoses / Procedures Referred By Contact Refer red To Contact Family Medicine SHIVA Catalan SE, M.D. [address], [place] [address] Referral ID Status Reason Start Date Expiration Date Visits Requ ested Visits Authorized [id number] Closed 06/26/2019 06/25/2020 1 1 MANAGER Encounter Details Date Type Department Care Team Description 06/26/2019 Orders Only RST PCP [facility] ANGIET Nena marino For Therapeutic Renee escobedo M.D. Drug Therapy [address] [place] [phone] (Wo rk) Social History Tobacco Use Types [...] How often do you attend islam or rastafari services? 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
--- OUTSIDE RECORDS SUMMARY | 2022-04-28 14:43 | XMS_ITS | Encounter Summary ---
:1950 Author Organization [facility] Address [address] [place] [address] Care Team Providers Name Role Phone Unavailable [...] often do you attend latter day or mormon services? 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 documented in this encounter Results Lower Arterial-Vascular Image Exam (05/03/2019 9:55 AM CROWD CONTROLLER) Specimen (Source) Anatomical Collection Method Collection Time Re ceived Time Location / / Volume Laterality 05/03/2019 9:53 AM CROWD CONTROLLER Narrative I[facility]S - 05/03/2019 10:35 AM CROWD CONTROLLER This order has been created and auto-finalized [...]
--- OUTSIDE RECORDS SUMMARY | 2022-04-28 14:43 | XMS_ITS | Encounter Summary ---
:1950 Author Organization [facility] Address [address] [place] [address] Care Team Providers Name Role Phone Unavailable Primary Care Provider Unavailable Encounter Details Date Type Department Care Team Description 05/04/2019 Hospital Encounter Department of Kemar Velásquez Atheros clerosis Of Laboratory Medicine M.B.B.S. Crow Arteries Of Left and Pathology, [address] [facility] Leg With Ulceration Of [facility], in [place], [place] Unspeci fied Site (HCC) [facility] [address] [place] [phone] [address] [facility] ([facility] [place], [place] [phone] [address] (Fax) [phone] Social History Tobacco Use Types Packs/Day Years [...] How often do you attend cheondoism or scientology services? Never 03/25/2021 Do you [...] at Date Recorded Male 03/24/2021 8:13 PM PARTNER CCO documented as of this encounter Medications at [...] Atherosclerosis Of Results for this PCR PM PARTNER CCO Crow Arteries Of procedure are in Left Leg With the results Ulceration Of section. Unspecified Site (HCC) MRSA CULTURE Routine 05/04/2019 1:04 Results for this PM PARTNER CCO procedure are i n the results section. documented in this encounter Results (ABNORMAL) Staphylococcus aureus Detection by Rapid PCR (05/04/2019 1:05 PM PARTNER CCO) Component Value Ref Range Test Analysis Performed Pathologis t Method Time At Signature Staphylococcus Swab, Nares 05/05/2019 DTL aureus PCR 3:44 PM PARTNER CCO Specimen Source Result Positive Not 05/05/2019 DTL (A) Applicable 3:44 PM PARTNER CCO Comment: ----ADDITIONAL INFORMATION---- This test was developed and its performa nce characteristics determined by [facility] in a manner consistent with CLIA requirements. This test has not been cleared or approved by the [place] and Drug Administration. Specimen Anatomical Collection Method Collection Time Receive d Time (Source) Location / / Volume Laterality Varies (Nares) 05/04/2019 1:05 PM 019 1:39 PARTNER CCO PM PARTNER CCO Kemar Redman.S. LAB MICROBIOLOGY - GENERAL O RDRKBLES Performing Organization Address City/[facility]/ZIP [facility] Phon e Number [facility] - [address] MRSA Culture (05/04/2019 1:04 PM PARTNER CCO) Analysis Performed At [facility] Time Signature MRSA Culture No growth 05/06/2019 DTL of MRSA 2:03 PM PARTNER CCO Specimen Anatomical Collection Method Collection Time Receive d Time (Source) Location / / Volume Laterality Nares 05/04/2019 1:04 PM 9 2:49 PARTNER CCO PM PARTNER CCO Comment: Specimen Source Site: SWAB Kemar MerchantS. 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
--- OUTSIDE RECORDS SUMMARY | 2022-04-28 14:43 | XMS_ITS | Encounter Summary ---
:1950 Author Organization [facility] Address [address] [place] [address] Care Team Providers Name Role Phone Unavailable Primary Care Provider Unavailable Reason for Visit Reason Onset Date Comments Med Refill 06/01/2019 Encounter Details Date Type Department Care Team Description 06/01/2019 Refill Department of Family Medicine, Bambi Adler, Med Refill [facility], [place] Renee Phillips M.D. [place] [address] [place] [address] [place] [address] [phone] Social History Tobacco Use Types Packs/Day Years [...] How often do you attend holiness or buddhist services? 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
--- OUTSIDE RECORDS SUMMARY | 2022-04-28 14:43 | XMS_ITS | Encounter Summary ---
:1950 Author Organization [facility] Address [address] [place] [address] Care Team Providers Name Role Phone Unavailable Primary Care Provider Unavailable Reason for Visit Outpatient (Routine) - Closed Specialty Diagnoses / Procedures Referred By Contact Refer red To Contact Vascular Surgery Kemar Velásquez, M.B.B. S. [place] [address] [place] [phone] Referral ID Status Reason Start Date Expiration Date Visits Requ ested Visits Authorized [id number] Closed 07/18/2018 07/18/2019 1 1 Encounter Details Date Type Department Care Team Description 05/04/2019 Office Visit Division of Vascular Kemar Velásquez, Athero sclerosis Of [place] and Endovascular M.B.B.S. Arteries Of Left Leg With Surgery in [address] Ulceration Of Unspecified [place], [place] Site (HCC) (Primary Dx) [address] [place] [address] [place], [place] [phone] [address] (Work) [phone] Social History Tobacco Use Types Packs/Day Years [...] often do you attend oriental orthodox or pentecostalism services? 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 - 05/04/2019 11:00 AM ASSOCIATE FIELD SERVICE ENGINEER Do not take Humalog (lispro) insulin morning of procedure. Follow instructions in Checklist for Surgical Patients regarding Lantus insulin based on your reporttime. OK to take all other regular morning medications on the morning of the procedure with sips of water. CIATE FIELD SERVICE ENGINEER documented in this encounter Consult Notes Kemar [...] ongoing needs forreinterventions. 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 CIATE FIELD SERVICE ENGINEER documented in this encounter Plan of Treatment Not on filedocumented as of this encounter Results (ABNORMAL) Staphylococcus aureus Detection by Rapid PCR (05/04/2019 1:05 PM ASSOCIATE FIELD SERVICE ENGINEER) Component Value Ref Range Test Analysis Performed Pathologis t Method Time At Signature Staphylococcus Swab, Nares 05/05/2019 DTL aureus PCR 3:44 PM ASSOCIATE FIELD SERVICE ENGINEER Specimen Source Result Positive Not 05/05/2019 DTL (A) Applicable 3:44 PM ASSOCIATE FIELD SERVICE ENGINEER Comment: ----ADDITIONAL INFORMATION---- This test was developed and its performa nce characteristics determined by [facility] in a manner consistent with CLIA requirements. This test has not been cleared or approved by the [place] and Drug Administration. 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
--- OUTSIDE RECORDS SUMMARY | 2022-04-28 14:43 | XMS_ITS | Encounter Summary ---
:1950 Author Organization [facility] Address [address] [place] [address] Care Team Providers Name Role Phone Unavailable Primary Care Provider Unavailable Reason for Visit Reason Comments Med Refill Encounter Details Date Type Department Care Team Description 07/06/2019 Refill Department of Angi Dickens M.D. Med Refill Medicine, [facility], [address] [place] [address], [facility] [address] [place] [address] Social History Tobacco Use [...] How often do you attend yazidism or baptist services? 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
--- OUTSIDE RECORDS SUMMARY | 2022-04-28 14:43 | XMS_ITS | Encounter Summary ---
:1950 Author Organization [facility] Address [address] [place] [address] Care Team Providers Name Role Phone Unavailable Primary Care Provider Unavailable Reason for Visit Reason Comments Med Refill Encounter Details Date Type Department Care Team Description 08/15/2019 Refill Department of Family Medicine, Bambi Adler Med Refill [facility], in Renee Phillips M.D. [place] [address] [place] [address] [place] [address] [phone] Social History Tobacco Use Types Packs/Day Years [...] How often do you attend spiritism or mosque services? 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
--- OUTSIDE RECORDS SUMMARY | 2022-04-28 14:43 | XMS_ITS | Encounter Summary ---
:1950 Author Organization [facility] Address [address] [place] [address] Care Team Providers Name Role Phone Unavailable Primary Care Provider Unavailable Reason for Visit Reason Onset Date Comments Clopidogrel 05/04/2019 Encounter Details Date Type Department Care Team Description 05/04/2019 Clinical Communication Division of Vascular and Kemar Velásquez Clopidogrel Endovascular Surgery in [place] [address] [facility] [address] [place] [address] [phone] Social History Tobacco Use Types Packs/Day Years [...] How often do you attend rastafari or baptist services? 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 Walton called and said he was supposed to get back to you with what medication he is taking. Heis taking clopidogrel 75 mg. Hermelinda CTOR GEOPHYSICAL LABORATORY documented in this encounter Plan of Treatment Not on filedocumented as of this encounter Visit Diagnoses Not on filedocumented in this encounter Additional Health Concerns Assessment Noted Time PHQ-9 Depression Total Score: 3 01/03/2018 10:38 AM CD T documented as of this encounter
--- OUTSIDE RECORDS SUMMARY | 2022-04-28 14:43 | XMS_ITS | Encounter Summary ---
:1950 Author Organization [facility] Address [address] [place] [address] Care Team Providers Name Role Phone Unavailable Primary Care Provider Unavailable Reason for Referral Outpatient (Routine) - Closed Specialty Diagnoses / Procedures Referred By Contact Refer red To Contact Vascular Surgery Kemar Velásquez M.B.B. S. [place] [address] [place] [address] Referral ID Status Reason Start Date Expiration Date Visits Requ ested Visits Authorized [id number] Closed 06/26/2019 06/25/2020 1 1 TECHNICIAN Encounter Details Date Type Department Care Team Description 06/26/2019 Orders Only Division of Vascular [place], Atheros clerosis and Endovascular Stacy Mcgee M.S., Arteri osclerosis Surgery in [facility] [address] [place] Extremity With [address] [place], [place] Claudication ([place]CC) [place] [address] (Primary Dx) [phone] Social History Tobacco Use Types Packs/Day Years [...] How often do you attend anabaptist or rastafari services? 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
--- OUTSIDE RECORDS SUMMARY | 2022-04-28 14:43 | XMS_ITS | Encounter Summary ---
:1950 Author Organization [facility] Address [address] [place] [address] Care Team Providers Name Role Phone Unavailable Primary Care Provider Unavailable Reason for Visit Reason Onset Date Comments Med Refill 05/14/2019 Encounter Details Date Type Department Care Team Description 05/14/2019 Refill Department of Family Medicine, Bambi Adler Med Refill [facility], [place] Renee Phillips M.D. [place] [id number] [address] [place] [address] [place] [address] [phone] Social History Tobacco Use Types Packs/Day Years [...] How often do you attend judaism or jain services? 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
--- OUTSIDE RECORDS SUMMARY | 2022-04-28 14:43 | XMS_ITS | Encounter Summary ---
:1950 Author Organization [facility] Address [address] [place] [address] Care Team Providers Name Role Phone Unavailable Primary Care Provider Unavailable Encounter Details Date Type Department Care Team Description 05/03/2019 Hospital Encounter Department of Kemar Velásquez, Katherine ral Arterial Disease (HCC); Radiology, Santiago Reyes Atherosclerosis Of [place] Arteries Of Le ft Leg With Ulceration Of Unspecified Site (HCC); Building, in [address] [place] [address] Atherosclerosis Of [place] Arteries Of Ex tremities With Intermittent Claudication Right Leg (HCC) [facility] [phone] [place] [address] [place], [place] (Work) [phone] Social History Tobacco Use Types Packs/Day Years [...] How often do you attend christian or faith services? 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 Left Leg With Ulceration Of Unspecified Site (HCC) Atherosclerosis Of [place] Ar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 (HCC) documented in this encounter Results US Lower Extremity Arteries Bilateral (05/03/2019 8:44 AM PASTRYCOOK'S ASSISTANT) Anatomical Region Laterality Modality Lower Extremity, Ultrasound RST LOS, Ultrasound ARZ LOS, Rodríguez ateral Ultrasound Ultrasound FLA LOS, Procedural Specimen (Source) Anatomical Collection Method Collection Time Re ceived Time Location / / Volume Laterality 05/03/2019 9:35 AM PASTRYCOOK'S ASSISTANT Impressions 05/03/2019 9:42 AM PASTRYCOOK'S ASSISTANT 1. Stable mild right common femoral artery [...] GINA jose nosis. Narrative 05/03/2019 9:42 AM PASTRYCOOK'S ASSISTANT EXAM: US LOWER EXTREMITY ARTERIES BILATERAL Exam performed with color and spectral D oppler analysis. 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 Stable mild elevation in [facility] in the [place] femoral artery (182 cm/s, [...] Diagnosis Peripheral Arterial Disease (HCC) Atherosclerosis Of [place] Arteries Of Le ft Leg With Ulceration Of Unspecified Site (HCC) Atherosclerosis Of [place] Arteries Of Ex tremities With Intermittent Claudication Right Leg (HCC) documented in this encounter Additional Health Concerns Assessment Noted Time PHQ-9 Depression Total Score: 3 01/03/2018 10:38 AM CD T documented as of this encounter
--- OUTSIDE RECORDS SUMMARY | 2022-04-28 14:43 | XMS_ITS | Encounter Summary ---
:1950 Author Organization [facility] Address [address] [place] [address] Care Team Providers Name Role Phone Unavailable Primary Care Provider Unavailable Reason for Visit Auth/Cert Specialty Diagnoses / Procedures Referred By Contact Refer red To Contact Diagnoses Atherosclerosis Of [place] Arteries Of Left Leg With Ulceration Of Unspecified Site (HCC) Atherosclerosis Of [place] Arteries Of Left Leg With Ulceration Of Unspecified Site (HCC) [I70.249] Procedures [place] REVASC OPN/PERC ILIAC W STENT IR ENDOVASCULAR ANGIOPLASTY STENT ILIAC LOWER EXTREMITY right femoral access Referral ID Status Reason Start Date Expiration Date Visits Requ ested Visits Authorized [id number] 1 1 Encounter Details Date Type Department Care Team Description 05/11/2019 Surgery [facility] OR Kemar Velásquez, 1. Ultrasound guided [address] [place] [address] [address] [facility] common femoral artery [phone] [place], [place] and placement of a 6fr [phone] sheath. 2. Abdominal [phone] aortogram and p elvic (Work) angiogram 3. [...] How often do you attend cheondoism or hinduism services? 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 documented as of this encounter Last Filed Vital Signs Vital Sign Reading Time Taken Comments Blood Pressure 132/74 05/11/2019 2:15 PM SAP TECHNICAL DEVELOPER Pulse 72 05/11/2019 2:15 PM SAP TECHNICAL DEVELOPER Temperature 36.6 ??C (97.9 ??F) 05/11/2019 2:10 PM SAP TECHNICAL DEVELOPER Respiratory Rate 13 05/11/2019 2:15 PM SAP TECHNICAL DEVELOPER Oxygen Saturation 92% 05/11/2019 2:15 PM SAP TECHNICAL DEVELOPER Inhaled Oxygen Concentration - - Weight 85.5 kg (188 lb 7.9 oz) 05/11/2019 7:20 AM SAP TECHNICAL DEVELOPER Height 175 cm (5' 8.9) 05/11/2019 7:20 AM SAP TECHNICAL DEVELOPER Body Mass Index 27.92 05/11/2019 7:20 AM SAP TECHNICAL DEVELOPER documented in this encounter Medications at Time [...] coordinated with Dr. Velásquez in 3-4 months. TECHNICAL DEVELOPER documented in this encounter OR Notes Op [...] * Betty Larkin M.D., M.P.H. - Supervisor Screen Printing * Kasey Herr M.D. - Supervisor Screen Printing Anesthesia Type Monitored anesthesia care Pre-operative Diagnosis Atherosclerosis Of [place] Arteries Of Left Leg With Ulceration Of Unspecified Site (HCC) Post-operative Diagnosis Atherosclerosis Of [place] Arteries Of Left Leg With Ulceration Of [...] Implant Name Type Inv. Item Serial No. Automobile Brake Bonder Lot No. LRB No. Used Action STNT INNOVA OTW [id number] - [id number] Vascular Stent STNT INNOVA OTW [id number] [place] [employer] [id number] Left 1 Implanted Amy Renee TECHNICAL DEVELOPER Brief Op Note - Betty Larkin M.D., M.P.H. - 05/11/2019 1:16 PM SAP TECHNICAL DEVELOPER BRIEF OP NOTE Procedure(s) (LRB): IR ENDOVASCULAR ANGIOPLASTY STENT ILIAC LOWER EXTREMITY, right femoral access. (Left) Surgeon(s) and Role: * Kemar Velásquez M.B.B.S. - Primary * Betty Larkin M.D., M.P.H. - Supervisor Screen Printing * Kasey Herr M.D. - Supervisor Screen Printing Anesthesia Type Monitored anesthesia care Pre-operative Diagnosis Atherosclerosis Of [place] Arteries Of Left Leg With Ulceration Of Unspecified Site (HCC) Post-operative Diagnosis Atherosclerosis Of [place] Arteries Of Left Leg With Ulceration Of [...] Implant Name Type Inv. Item Serial No. Automobile Brake Bonder Lot No. LRB No. Used Action STNT INNOVA OTW [id number] - [id number] Vascular Stent STNT INNOVA OTW [id number] [employer] [place] [employer] [id number] Left 1 Implanted LOWER EXTREMITY PVI Side [...] Vessels Treated? No Betty Larkin M.D., M.P.H. TECHNICAL DEVELOPER documented in this encounter Plan of Treatment Pending Results Name Type Priority Associated Diagnoses Date/Ti mt IR ENDOVASCULAR Imaging RAD - Routine Atherosclerosis Of 05/11 2:09 ANGIOPLASTY STENT (most inpatients [place] Arteries Of Left PM SAP TECHNICAL DEVELOPER ILIAC LOWER and all Leg With Ulceration Of EXTREMITY outpatients) Unspecified Site (HCC) documented as of this encounter Procedures Procedure Name Priority Date/Time Associated Diagnosis Comme nts GLUCOSE POCT, B Routine 05/11/2019 6:29 Results f or PM SAP TECHNICAL DEVELOPER this procedure are in the results section. GLUCOSE POCT, B Routine 05/11/2019 4:17 Results f or PM SAP TECHNICAL DEVELOPER this procedure are in the results section. GLUCOSE POCT, B Routine 05/11/2019 2:18 Results f or PM SAP TECHNICAL DEVELOPER this procedure are in the results section. IR ENDOVASCULAR RAD - Routine 05/11/2019 2:09 Atherosclerosis Of ANGIOPLASTY STENT (most inpatients PM SAP TECHNICAL DEVELOPER [place] Arteries Of ILIAC LOWER and all Left Leg With EXTREMITY outpatients) Ulceration Of Unspecified Site (HCC) ACT, POCT, B Routine 05/11/2019 1:46 Results for PM SAP TECHNICAL DEVELOPER this procedure are in the results section. ADULT OXYGEN Routine 05/11/2019 THERAPY 10:15 AM SAP TECHNICAL DEVELOPER EXTUBATION Routine 05/11/2019 10:15 AM SAP TECHNICAL DEVELOPER GLUCOSE POCT, B Routine 05/11/2019 Results for 10:12 AM SAP TECHNICAL DEVELOPER this procedure are in the results section. documented in this encounter Results Glucose, POCT (05/11/2019 6:29 PM SAP TECHNICAL DEVELOPER) Analysis Performed At Patho logist Time Signature Glucose, POCT, 119 70 - 140 05/11/2019 [facility] B mg/dL 6:37 PM SAP TECHNICAL DEVELOPER Site Capillary 05/11/2019 [facility] 6:37 PM SAP TECHNICAL DEVELOPER Specimen Anatomical Collection Method Collection Time Receive d Time (Source) Location / / Volume Laterality Blood 05/11/2019 6:29 PM 9 6:37 SAP TECHNICAL DEVELOPER PM SAP TECHNICAL DEVELOPER Unknown Provider LAB POCT ORDERABLES-MANUAL Performing Organization Address City/[facility]/[place] [facility] [facility] [address] [place] [address] [place] [address] [facility] [address] Glucose, POCT (05/11/2019 4:17 PM SAP TECHNICAL DEVELOPER) Analysis Performed At Patho logist Time Signature Glucose, POCT, 112 70 - 140 05/11/2019 [facility] B mg/dL 4:19 PM SAP TECHNICAL DEVELOPER Site Capillary 05/11/2019 [facility] 4:19 PM SAP TECHNICAL DEVELOPER Specimen Anatomical Collection Method Collection Time Receive d Time (Source) Location / / Volume Laterality Blood 05/11/2019 4:17 PM 9 4:20 SAP TECHNICAL DEVELOPER PM SAP TECHNICAL DEVELOPER Unknown Provider LAB POCT ORDERABLES-MANUAL Performing Organization Address City/[facility] Phon e Number POC [facility] [address] [place] [address] [place] [address] [facility] [address] Glucose, POCT (05/11/2019 2:18 PM SAP TECHNICAL DEVELOPER) Analysis Performed At Patho logist Time Signature Glucose, POCT, 115 70 - 140 05/11/2019 [facility] B mg/dL 2:20 PM SAP TECHNICAL DEVELOPER Site Capillary 05/11/2019 [facility] 2:20 PM SAP TECHNICAL DEVELOPER Specimen Anatomical Collection Method Collection Time Receive d Time (Source) Location / / Volume Laterality Blood 05/11/2019 2:18 PM 9 2:20 SAP TECHNICAL DEVELOPER PM SAP TECHNICAL DEVELOPER Unknown Provider LAB POCT ORDERABLES-MANUAL Performing Organization Address City/[facility] Phon e Number POC [facility] [address] [place] [address] [place] [address] [facility] [address] (ABNORMAL) ACT (Activated Clotting Time), POCT (05/11/2019 1:46 PM SAP TECHNICAL DEVELOPER) P athologist Signature Activated 296 (H) 84 - 139 05/11/2019 [facility] Clotting Time, sec 1:52 PM SAP TECHNICAL DEVELOPER POCT Specimen Anatomical Collection Method Collection Time Receive d Time (Source) Location / / Volume Laterality Blood 05/11/2019 1:46 PM 9 1:52 SAP TECHNICAL DEVELOPER PM SAP TECHNICAL DEVELOPER Unknown Provider LAB POCT ORDERABLES - DEVICE Performing Organization Address City/[facility]/[place]IP [facility] [place] [facility] [address] [place], [place] [address] [place] [address] [facility] [address] (ABNORMAL) Glucose, POCT (05/11/2019 10:12 AM SAP TECHNICAL DEVELOPER) athologist Signature Glucose, POCT, 160 (H) 70 - 140 05/11/2019 [facility] B mg/dL 10:41 AM SAP TECHNICAL DEVELOPER Specimen Anatomical Collection Method Collection Time Receive d Time (Source) Location / / Volume Laterality Blood 05/11/2019 10:12 05/11/2019 AM SAP TECHNICAL DEVELOPER 10:42 AM SAP TECHNICAL DEVELOPER Unknown Provider LAB POCT ORDERABLES-MANUAL Performing Organization Address City/[facility] Phon e Number POC [facility] [address] [place] [address] [place] [address] [facility] [address] documented in this encounter Visit Diagnoses Diagnosis Atherosclerosis Of [place] Arteries Of Le ft Leg With Ulceration Of Unspecified Site (HCC) - Primary Atherosclerosis Of [place] Arteries Of Le ft Leg With Ulceration Of Unspecified Site (HCC) Atherosclerosis Of [place] Arteries Of Le ft Leg With Ulceration Of Unspecified Site (HCC) documented in this encounter Admitting Diagnoses Diagnosis Atherosclerosis Of [place] Arteries Of Le ft Leg With Ulceration Of Unspecified Site (HCC) documented in this encounter Administered Medications Inactive Administered Medications - up to 3 most recent administrations Medication Order MAR Action Action Date Dose Rate Site acetaminophen tablet 1,000 mg Given 05/11/2019 10:34 AM SAP TECHNICAL DEVELOPER 1,00 0 mg (TYLENOL) 1,000 mg, oral, Once, On Tue05/11/19 at 1030, For 1 dose, Pre-Op acetaminophen tablet 1,000 mg (TYLENOL) Given 05/11/2019 4:38 PM SAP TECHNICAL DEVELOPER 1,000 mg 1,000 mg, oral, Once as needed, other, If patient has not received in the previous 6 hours, Starting on Tue05/11/19 at 1015, For 1 dose, PACU (only), Oral unless RASS less than -1 or nausea/vomiting. Do not use if given in last 6 hours diazePAM tablet 5 mg (VALIUM) Given 05/11/2019 5:50 PM SAP TECHNICAL DEVELOPER 5 mg 5 mg, oral, Once as needed, anxiety, muscle spasms, Agitation during bedrest, Starting on Tue05/11/19 at 1409, For 1 dose, Pre-Op electrolyte-A solution Continued from OR 05/11/2019 2:10 PM SAP TECHNICAL DEVELOPER 20 mL/hr 20 mL/hr (PLASMA-LYTE A) 20 mL/hr, intravenous, Continuous, Starting on Tue05/11/19 at 1400, PACU & Post-Op heparin 10 Units/mL in NaCl 0.9% 500 mL flush Given 1:47 PM SAP TECHNICAL DEVELOPER 100 mL solution miscellaneous, Once in surgery, OR use only, Starting on Tue05/11/19 at 1229, For 1 dose, Intra-Op, *Flush/Irrigation use only* insulin aspart U-100 Given 05/11/2019 10:13 AM SAP TECHNICAL DEVELOPER 2 Units Right Lower Abdomen injection 0-8 [...] NaCl 0.9% Given 1 07/12/2018 1:49 PM SAP TECHNICAL DEVELOPER 22 mL injection 300 mL, injection, Once in surgery, OR use only, Starting on Tue05/11/19 at 1229, For 1 dose, Intra-Op lidocaine-bupivacaine 1%-0.25% infiltration Given 05/11/2019 1:4 8 PM SAP TECHNICAL DEVELOPER 10 mL injection 30 mL 30 mL, [...] 0.9% infusion New Bag 05/11/2019 10:28 AM SAP TECHNICAL DEVELOPER 128 mL/hr 128 mL/hr 1-500 mL/hr, intravenous, Continuous, Starting on Tue05/11/19 at 1015, Pre-Op, 1.5 mL/kg/hr - Stop 1 hour prior to angio documented in this encounter Active and Recently Administered Medications Times are shown in SAP TECHNICAL DEVELOPER. Scheduled Medication Order 05/09/2019 05/10/2019 05/11/2019 acetaminophen [...] (JUL Hold - Provider: Transfer Provider, Automatic)1845 ([facility] Unhold - Provider: Transfer Provider, Automatic)1850 ([facility] Hold - Provider: Transfer Provider, Automatic)2244 ([facility] Unhold - Provider: Discharge Provider, [...] Ph.D.)1345 (Stopped - Provider: Pam Kaur APRN, [facility]) 0.2-1.5 mcg/kg/hr ? 85.5 kg Dosing [...] (New Bag - Provider: Laila Kamara RJerad)184 ([facility] Hold - Provider: Transfer Provider, Automatic)184 ([facility] Unhold - Provider: Transfer Provider, Automatic)1850 ([facility] Hold - Provider: Transfer Provider, Automatic) 1-500 mL/hr, intravenous, Continuous, St arting on Tue05/11/19 at 1015, Pre-Op, 1.5 mL/kg/hr - Stop 1 hour prior to angio 2244 ([facility] Unhold - Provider: Discharge Provider, Automatic) phenylephrine 80 mcg/mL in NaCl 0.9% 250 mL infusion 1130 (Due)1843 ([facility] Hold - Provider: Transfer Provider, Automatic)1846 ([facility] Unhold - Provider: Transfer Provider, Automatic)1850 ([facility] Hold - Provider: Transfer Provider, Automatic)2244 ([facility] Unhold - Provider: Discharge Provider, [...] R.N.) 0-8 Units, subcutaneous, Every 2 hour [place] N, high blood sugar, Nurse to determine [...]
--- OUTSIDE RECORDS SUMMARY | 2022-04-28 14:43 | XMS_ITS | Encounter Summary ---
:1950 Author Organization [facility] Address [address] [place] [address] Care Team Providers Name Role Phone Unavailable Primary Care Provider Unavailable Reason for Visit Auth/Cert Specialty Diagnoses / Procedures Referred By Contact Refer red To Contact Diagnoses Atherosclerosis Of [place] Arteries Of Left Leg With Ulceration Of Unspecified Site (HCC) Atherosclerosis Of [place] Arteries Of Left Leg With Ulceration Of Unspecified Site (HCC) [I70.249] Procedures CA REVASC OPN/PERC ILIAC W STENT IR ENDOVASCULAR ANGIOPLASTY STENT ILIAC LOWER EXTREMITY right femoral access Referral ID Status Reason Start Date Expiration Date Visits Requ ested Visits Authorized [id number] 1 1 Encounter Details Date Type Department Care Team Description 05/11/2019 Hospital Encounter RST WENDY PETERS OR Kemar Velásquez, Atherosclerosis Of [address] [place] Arteries Of Left [place], [place] [address] [facility] [place] [address] [place], [place] Unspecified Site (HCC) [phone] Social History Tobacco Use Types Packs/Day Years [...] How often do you attend yazidism or anabaptist services? 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 documented as of this encounter Last Filed Vital Signs Vital Sign Reading Time Taken Comments Blood Pressure 128/71 05/11/2019 6:30 PM NITRO WORKER Pulse 77 05/11/2019 8:09 PM NITRO WORKER Temperature 36.6 ??C (97.9 ??F) 05/11/2019 2:10 PM NITRO WORKER Respiratory Rate 18 05/11/2019 8:09 PM NITRO WORKER Oxygen Saturation 93% 05/11/2019 8:09 PM NITRO WORKER Inhaled Oxygen Concentration - - Weight 85.5 kg (188 lb 7.9 oz) 05/11/2019 7:20 AM NITRO WORKER Height 175 cm (5' 8.9) 05/11/2019 7:20 AM NITRO WORKER Body Mass Index 27.92 05/11/2019 7:20 AM NITRO WORKER documented in this encounter Medications at Time [...] coordinated with Dr. Velásquez in 3-4 months. O WORKER documented in this encounter OR Notes Op [...] Primary * Betty Larkin M.D., M.P.H. - Telephone Collector * Kasey Herr M.D. - Telephone Collector Anesthesia Type Monitored anesthesia care Pre-operative Diagnosis Atherosclerosis Of [place] Arteries Of Left Leg With Ulceration Of Unspecified Site (HCC) Post-operative Diagnosis Atherosclerosis Of [place] Arteries Of Left Leg With Ulceration Of [...] Implant Name Type Inv. Item Serial No. Vice President Of Talent Management Lot No. LRB No. Used Action STNT INNOVA OTW [id number] - [id number] Vascular Stent STNT INNOVA OTW [id number] [employer] [id number] Left 1 Implanted Aym Renee O WORKER Brief Op Note - Betty Larkin M.D., M.P.H. - 05/11/2019 1:16 PM NITRO WORKER BRIEF OP NOTE Procedure(s) (LRB): IR ENDOVASCULAR ANGIOPLASTY STENT ILIAC LOWER EXTREMITY, right femoral access. (Left) Surgeon(s) and Role: * Kemar Velásquez M.B.B.S. - Primary * Betty Larkin M.D., M.P.H. - Telephone Collector * Kasey Herr M.D. - Telephone Collector Anesthesia Type Monitored anesthesia care Pre-operative Diagnosis Atherosclerosis Of [place] Arteries Of Left Leg With Ulceration Of Unspecified Site (HCC) Post-operative Diagnosis Atherosclerosis Of [place] Arteries Of Left Leg With Ulceration Of [...] Implant Name Type Inv. Item Serial No. Vice President Of Talent Management Lot No. LRB No. Used Action STNT INNOVA OTW [id number] - [id number] Vascular Stent STNT INNOVA OTW [id number] [employer] [id number] Left 1 Implanted LOWER EXTREMITY PVI Side [...] Vessels Treated? No Betty Larkin M.D., M.P.H. O WORKER documented in this encounter Plan of Treatment Pending Results Name Type Priority Associated Diagnoses Date/Ti me IR ENDOVASCULAR Imaging RAD - Routine Atherosclerosis Of 05/11 2:09 ANGIOPLASTY STENT (most inpatients [place] Arteries Of Left PM NITRO WORKER ILIAC LOWER and all Leg With Ulceration Of EXTREMITY outpatients) Unspecified Site (HCC) documented as of this encounter Procedures Procedure Name Priority Date/Time Associated Diagnosis Comme nts GLUCOSE POCT, B Routine 05/11/2019 6:29 Results f or PM NITRO WORKER this procedure are in the results section. GLUCOSE POCT, B Routine 05/11/2019 4:17 Results f or PM NITRO WORKER this procedure are in the results section. GLUCOSE POCT, B Routine 05/11/2019 2:18 Results f or PM NITRO WORKER this procedure are in the results section. IR ENDOVASCULAR RAD - Routine 05/11/2019 2:09 Atherosclerosis Of ANGIOPLASTY STENT (most inpatients PM NITRO WORKER [place] Arteries Of ILIAC LOWER and all Left Leg With EXTREMITY outpatients) Ulceration Of Unspecified Site (HCC) ACT, POCT, B Routine 05/11/2019 1:46 Results for PM NITRO WORKER this procedure are in the results section. ADULT OXYGEN Routine 05/11/2019 THERAPY 10:15 AM NITRO WORKER EXTUBATION Routine 05/11/2019 10:15 AM NITRO WORKER GLUCOSE POCT, B Routine 05/11/2019 Results for 10:12 AM NITRO WORKER this procedure are in the results section. documented in this encounter Results Glucose, POCT (05/11/2019 6:29 PM NITRO WORKER) Analysis Performed At Patho logist Time Signature Glucose, POCT, 119 70 - 140 05/11/2019 PCLX B mg/dL 6:37 PM NITRO WORKER Site Capillary 05/11/2019 PCLX 6:37 PM NITRO WORKER Specimen Anatomical Collection Method Collection Time Receive d Time (Source) Location / / Volume Laterality Blood 05/11/2019 6:29 PM 9 6:37 NITRO WORKER PM NITRO WORKER Unknown Provider LAB POCT ORDERABLES-MANUAL Performing Organization Address City/[facility] Phon e Number POC [facility] [address] [place] [address] [place] [address] [place] [facility] [address] [facility] Glucose, POCT (05/11/2019 4:17 PM NITRO WORKER) Analysis Performed At Patho logist Time Signature Glucose, POCT, 112 70 - 140 05/11/2019 PCLX B mg/dL 4:19 PM NITRO WORKER Site Capillary 05/11/2019 PCLX 4:19 PM NITRO WORKER Specimen Anatomical Collection Method Collection Time Receive d Time (Source) Location / / Volume Laterality Blood 05/11/2019 4:17 PM 9 4:20 NITRO WORKER PM NITRO WORKER Unknown Provider LAB POCT ORDERABLES-MANUAL Performing Organization Address City/[facility] Phon e Number POC [facility] [address] [place] [address] [place] [address] [place] [facility] [address] [facility] Glucose, POCT (05/11/2019 2:18 PM NITRO WORKER) Analysis Performed At Patho logist Time Signature Glucose, POCT, 115 70 - 140 05/11/2019 PCLX B mg/dL 2:20 PM NITRO WORKER Site Capillary 05/11/2019 PCLX 2:20 PM NITRO WORKER Specimen Anatomical Collection Method Collection Time Receive d Time (Source) Location / / Volume Laterality Blood 05/11/2019 2:18 PM 9 2:20 NITRO WORKER PM NITRO WORKER Unknown Provider LAB POCT ORDERABLES-MANUAL Performing Organization Address City/[facility] Phon e Number POC [facility] [address] [place] [address] [place] [address] [place] [facility] [address] (ABNORMAL) ACT (Activated Clotting Time), POCT (05/11/2019 1:46 PM NITRO WORKER) P athologist Signature Activated 296 (H) 84 - 139 05/11/2019 PCSM Clotting Time, sec 1:52 PM NITRO WORKER POCT Specimen Anatomical Collection Method Collection Time Receive d Time (Source) Location / / Volume Laterality Blood 05/11/2019 1:46 PM 9 1:52 NITRO WORKER PM NITRO WORKER Unknown Provider LAB POCT ORDERABLES - DEVICE Performing Organization Address City/State/ZIP Code Phon e Number POC RST [facility] [address] [place], [place] [address] [place] [address] [place] [facility] [address] (ABNORMAL) Glucose, POCT (05/11/2019 10:12 AM NITRO WORKER) P athologist Signature Glucose, POCT, 160 (H) 70 - 140 05/11/2019 PCLX B mg/dL 10:41 AM NITRO WORKER Specimen Anatomical Collection Method Collection Time Receive d Time (Source) Location / / Volume Laterality Blood 05/11/2019 10:12 05/11/2019 AM NITRO WORKER 10:42 AM NITRO WORKER Unknown Provider LAB POCT ORDERABLES-MANUAL Performing Organization Address City/[facility] Phon e Number POC [facility] [address] [place] [address] [place] [address] [place] [facility] [address] documented in this encounter Visit Diagnoses Diagnosis Atherosclerosis Of [place] Arteries Of Le ft Leg With Ulceration Of Unspecified Site (HCC) - Primary Atherosclerosis Of [place] Arteries Of Le ft Leg With Ulceration Of Unspecified Site (HCC) documented in this encounter Admitting Diagnoses Diagnosis Atherosclerosis Of [place] Arteries Of Le ft Leg With Ulceration Of Unspecified Site (HCC) documented in this encounter Administered Medications Inactive Administered Medications - up to 3 most recent administrations Medication Order MAR Action Action Date Dose Rate Site acetaminophen tablet 1,000 mg Given 05/11/2019 10:34 AM NITRO WORKER 1,00 0 mg (TYLENOL) 1,000 mg, oral, Once, On Tue05/11/19 at 1030, For 1 dose, Pre-Op acetaminophen tablet 1,000 mg (TYLENOL) Given 05/11/2019 4:38 PM NITRO WORKER 1,000 mg 1,000 mg, oral, Once as needed, other, If patient has not received in the previous 6 hours, Starting on Tue05/11/19 at 1015, For 1 dose, PACU (only), Oral unless RASS less than -1 or nausea/vomiting. Do not use if given in last 6 hours diazePAM tablet 5 mg (VALIUM) Given 05/11/2019 5:50 PM NITRO WORKER 5 mg 5 mg, oral, Once as needed, anxiety, muscle spasms, Agitation during bedrest, Starting on Tue05/11/19 at 1409, For 1 dose, Pre-Op electrolyte-A solution Continued from OR 05/11/2019 2:10 PM NITRO WORKER 20 mL/hr 20 mL/hr (PLASMA-LYTE A) 20 mL/hr, intravenous, Continuous, Starting on Tue05/11/19 at 1400, PACU & Post-Op insulin aspart U-100 Given 05/11/2019 10:13 AM NITRO WORKER 2 Units Right Lower Abdomen injection 0-8 [...] 0.9% infusion New Bag 05/11/2019 10:28 AM NITRO WORKER 128 mL/hr 128 mL/hr 1-500 mL/hr, intravenous, Continuous, Starting on Tue05/11/19 at 1015, Pre-Op, 1.5 mL/kg/hr - Stop 1 hour prior to angio documented in this encounter Active and Recently Administered Medications Times are shown in NITRO WORKER. Scheduled Medication Order 05/09/2019 05/10/2019 05/11/2019 acetaminophen [...] % nasal ointment 1 application (BACTROBAN) 1843 ([facility] Hold - Provider: Transfer Provider, Automatic)1846 ([facility] Unhold - Provider: Transfer Provider, Automatic)1850 ([facility] Hold - Provider: Transfer Provider, Automatic)2244 ([facility] Unhold - Provider: Discharge Provider, [...] Ph.D.)1345 (Stopped - Provider: Pam Kaur APRN, [facility]) 0.2-1.5 mcg/kg/hr ? 85.5 kg Dosing weight [...] (New Bag - Provider: Laila Kamara RJerad)1843 ([facility] Hold - Provider: Transfer Provider, Automatic)1846 ([facility] Unhold - Provider: Transfer Provider, Automatic)1850 ([facility] Hold - Provider: Transfer Provider, Automatic) 1-500 mL/hr, intravenous, Continuous, St arting on Tue05/11/19 at 1015, Pre-Op, 1.5 mL/kg/hr - Stop 1 hour prior to angio 2244 ([facility] Unhold - Provider: Discharge Provider, Automatic) phenylephrine 80 mcg/mL in NaCl 0.9% 250 mL infusion 1130 (Due)1843 ([facility] Hold - Provider: Transfer Provider, Automatic)1846 ([facility] Unhold - Provider: Transfer Provider, Automatic)1850 ([facility] Hold - Provider: Transfer Provider, Automatic)2244 ([facility] Unhold - Provider: Discharge Provider, [...] 05/11/2019 acetaminophen tablet 1,000 mg (TYLENOL) (COMPLETED) 1637 (Given - Provider: Mallika Gleason RFeiNFei) 1,000 [...] U-100 injection 0-8 Units (NovoLOG FlexPen) ([facility]) 1013 (Given - Provider: Laila Kamara RFeiNFei) 0-8 Units, subcutaneous, Every 2 hour CA N, high blood sugar, Nurse to determine [...]
--- OUTSIDE RECORDS SUMMARY | 2022-04-28 14:43 | XMS_ITS | Encounter Summary ---
:[address] [facility] Address [address] [place] [address] Care Team Providers Name Role Phone Unavailable Primary Care Provider Unavailable Encounter Details Date Type Department Care Team Description 05/03/2019 Hospital Encounter Department of Kemar Velásquez, Katherine ral Arterial Disease (HCC); Radiology, Santiago Reyes Atherosclerosis Of [place] Arteries Of Le ft Leg With Ulceration Of Unspecified Site (HCC); Building, in [address] [place] [address] Atherosclerosis Of [place] Arteries Of Ex tremities With Intermittent Claudication Right Leg (HCC) [facility] [phone] [place] [address] [place], [place] (Work) [phone] Social History Tobacco Use Types Packs/Day Years [...] at Date Recorded 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 Left Leg With Ulceration Of Unspecified Site (HCC) Atherosclerosis Of [place] Ar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 (HCC) documented in this encounter Results US Aorta Iliac Arteries Left with Doppler (05/03/2019 8:04 AM REMOTE CONTROL MIRROR INSTALLER) Anatomical Region Laterality Modality Abdomen, Pelvis, Ultrasound RST LOS, Ultrasound ARZ LOS, Lef t Ultrasound Ultrasound FLA LOS, Procedural Specimen (Source) Anatomical Collection Method Collection Time Re ceived Time Location / / Volume Laterality 05/03/2019 8:53 AM REMOTE CONTROL MIRROR INSTALLER Impressions 05/03/2019 9:35 AM REMOTE CONTROL MIRROR INSTALLER 1. Progression in high-grade stenosis of the distal left external iliac artery. 2. Stable elevated velocities in the lef t common iliac artery stent suggestive of moderate stent stenosis. Narrative 05/03/2019 9:35 AM REMOTE CONTROL MIRROR INSTALLER EXAM: US AORTA ILIAC ARTERIES LEFT WITH [...] Diagnosis Peripheral Arterial Disease (HCC) Atherosclerosis Of [place] Arteries Of Le ft Leg With Ulceration Of Unspecified Site (HCC) Atherosclerosis Of [place] Arteries Of Ex tremities With Intermittent Claudication Right Leg (HCC) documented in this encounter Additional Health Concerns Assessment Noted Time PHQ-9 Depression Total Score: 3 01/03/2018 10:38 AM CD T documented as of this encounter
--- OUTSIDE RECORDS SUMMARY | 2022-04-28 14:43 | XMS_ITS | Encounter Summary ---
:1950 Author Organization [facility] Address [address] [place] [address] Care Team Providers Name Role Phone Unavailable Primary Care Provider Unavailable Reason for Visit Auth/Cert Specialty Diagnoses / Procedures Referred By Contact Refer red To Contact Diagnoses Atherosclerosis Of [place] Arteries Of Left Leg With Ulceration Of Unspecified Site (HCC) Atherosclerosis Of [place] Arteries Of Left Leg With Ulceration Of Unspecified Site (HCC) [I70.249] Procedures [place] REVASC OPN/PERC ILIAC W STENT IR ENDOVASCULAR ANGIOPLASTY STENT ILIAC LOWER EXTREMITY right femoral access Referral ID Status Reason Start Date Expiration Date Visits Requ ested Visits Authorized [id number] 1 1 Encounter Details Date Type Department Care Team Description 05/11/2019 Anesthesia Event RST ROMB MAIN OR Edmundo Cuevas, [address] [facility] [place] [address] [address] [facility] [phone] [place] [phone] (Wo rk) Anesthesia Record Procedure Summary Procedure [...] h andoff to the receiving staff during [facility] ch we 1. Identified the patient [...] 02/03 1418 by Bilateral; Emi Cotto PRM [facility] linmakayla-Backgroun NONADH 2X3 (x2); 02/03/21 R.NSamia schrader [...] 1418 by Left; 02/03/21 (Removed Martina Morales, [facility]-Backgroun by background completion Jourdan, R.N. jaret, AWAK utility); 1418 (Removed Automate d Batch Job [...] How often do you attend islam or congregational services? 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 - 05/11/2019 5:35 PM CST Patient: Onesimo Walton Procedure Summary Date: 05/11/19 Room / Location: [facility] [address] / [facility] in [place], [place] Anesthesia Start: 1244 Anesthesia Stop: 1415 Procedure: IR ENDOVASCULAR ANGIOPLASTY STENT ILIAC LOWER EXTREMITY, right femoral access. (Left Groin) Diagnosis: Atherosclerosis Of [place] Arteries Of Left Leg With Ulceration Of Unspecified Site (HCC) (Atherosclerosis Of [place] Arteries Of Left Leg With Ulceration Of [...] Post Op nausea/vomiting: none Hydration status: euvolemic OR SHAREPOINT ARCHITECT Anesthesia Preprocedure Evaluation - Edmundo Cuevas M.D. - 05/11/2019 11:18 AM CST Preprocedure Anesthesia & H&P Assessment Procedure Summary Date/Time: 05/11/19 1126 Procedure: IR ENDOVASCULAR ANGIOPLASTY STENT ILIAC LOWER EXTREMITY, right femoral access. (Left ) Diagnosis: Atherosclerosis Of [place] Arteries Of Left Leg With Ulceration Of Unspecified Site (HCC)[I70.249] Pre-op diagnosis: Atherosclerosis Of [place] Arteries Of Left Leg With Ulceration Of Unspecified Site (HCC) [I70.249]. Location: [place] [address] [address] / [facility] in [place], [place] Provider: Kemar Velásquez M.B.BFeiSFei Pertinent components [...] (HCC) (+) Hyperlipidemia Other (+) Atherosclerosis Of [place] Ar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 (HCC) (+) Atherosclerosis Of [place] Arteries Of Left Leg With Ulceration Of [...] with patient /legal guardian or through an zone manager. The use of blood products not discussed Approval to Proceed: approved for anesthesia 69M w/ h/o PVD, HTN, CKD, DMII on plavix, metop succ presenting ror endovascular stent of left iliac. Will plan MAC. OR SHAREPOINT ARCHITECT documented in this encounter Plan of Treatment Not on filedocumented as of this encounter Visit Diagnoses Not on filedocumented in this encounter Administered Medications Inactive Administered Medications - up to 3 most recent administrations Medication Order MAR Action Action Date Dose Rate Site ceFAZolin injection 2 g (ANCEF) Given 05/11/2019 1:04 PM SENIOR SHAREPOINT ARCHITECT 2 g 2 g, intravenous, Once, On [...] mL/hr in NaCl 0.9% 100 mL PM SENIOR SHAREPOINT ARCHITECT infusion (PRECEDEX) 0.2-1.5 mcg/kg/hr ? 85.5 kg [...] care unit New Bag 05/11/2019 12:50 PM SENIOR SHAREPOINT ARCHITECT 0.3 mcg/kg/hr 6.41 mL/hr electrolyte-A solution (PLASMA-LYTE A) New Bag 05/11/2019 12:48 PM SENIOR SHAREPOINT ARCHITECT intravenous, Continuous Infusion: Per Instructions PRN, Starting on Tue05/11/19 at 1248, Anesthesia Intra-op fentaNYL injection (SUBLIMAZE) Given 05/11/2019 12:53 PM SENIOR SHAREPOINT ARCHITECT 50 mcg intravenous, As needed, Starting on Tue05/11/19 at 1253, Anesthesia Intra-op heparin (porcine) 1,000 unit/mL Given 05/11/2019 1:37 PM SENIOR SHAREPOINT ARCHITECT 9,0 00 Units injection As needed, Starting on Tue05/11/19 at 1337, Anesthesia Intra-op ketamine injection (KETALAR) Given 05/11/2019 12:55 PM SENIOR SHAREPOINT ARCHITECT 10 mg intravenous, As needed, Starting on Tue05/11/19 at 1255, Anesthesia Intra-op midazolam (PF) injection (VERSED) Given 05/11/2019 12:53 PM SENIOR SHAREPOINT ARCHITECT 1 mg As needed, Starting on Tue05/11/19 at 1253, Anesthesia Intra-op propofol 10 mg/mL infusion Rate/Dose 05/11/2019 1:24 25 mcg/kg/min 1 2.8 mL/hr (DIPRIVAN) Change PM SENIOR SHAREPOINT ARCHITECT intravenous, Continuous Infusion: Per Instructions PRN, Starting on Tue05/11/19 at 1250, Anesthesia Intra-op Rate/Dose Change 05/11/2019 12:57 PM SENIOR SHAREPOINT ARCHITECT 75 mcg/kg/min 38.5 mL/hr New Bag 05/11/2019 12:50 PM SENIOR SHAREPOINT ARCHITECT 50 mcg/kg/min 25.7 mL/hr propofol injection (DIPRIVAN) Given 05/11/2019 12:50 PM SENIOR SHAREPOINT ARCHITECT 50 mg intravenous, As needed, Starting on Tue05/11/19 at 1250, Anesthesia Intra-op protamine injection Given 05/11/2019 1:50 PM SENIOR SHAREPOINT ARCHITECT 15 mg As needed, Starting on Tue05/11/19 at 1348, Anesthesia Intra-op Given 05/11/2019 1:48 PM SENIOR SHAREPOINT ARCHITECT 5 mg documented in this encounter Additional Health Concerns Assessment Noted Time PHQ-9 Depression Total Score: 3 01/03/2018 10:38 AM CD T documented as of this encounter
--- OUTSIDE RECORDS SUMMARY | 2022-04-28 14:44 | XMS_ITS | Encounter Summary ---
:1950 Author Organization [facility] Address [address] [place] [address] Care Team Providers Name Role Phone Unavailable Primary Care Provider Unavailable Reason for Visit Reason Comments Med Refill Encounter Details Date Type Department Care Team Description 07/25/2018 Refill Department of Family Medicine, Fredrick Benitez M.D. Med Refill [facility], in [address] [place] [phone] [place] [address] [place], [place] [phone] Social History Tobacco Use Types Packs/Day Years [...] How often do you attend worship or uatsdin services? 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
--- OUTSIDE RECORDS SUMMARY | 2022-04-28 14:44 | XMS_ITS | Encounter Summary ---
:1950 Author Organization [facility] Address [address] [place] [address] Care Team Providers Name Role Phone Unavailable Primary Care Provider Unavailable Reason for Visit Reason Comments Med Refill Encounter Details Date Type Department Care Team Description 02/04/2019 Refill Department of Neurology in Yessy Cohen M.D., Med Refill [place], [place] M.P.H[facility] [address] [facility] [address] [place] [address] [place] [phone] (Wo rk) Social History Tobacco Use Types [...] How often do you attend restorationist or confucianism services? 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
--- OUTSIDE RECORDS SUMMARY | 2022-04-28 14:44 | XMS_ITS | Encounter Summary ---
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 [facility] Procedures Lower Extremity Arterial (MIMI) - TCPO2 (Wound) SD STUDY EXT ARTERY > 2 LVLS RODRÍGUEZ [address] [place] [address] Referral ID Status Reason Start Date Expiration Date Visits Requ ested Visits Authorized [id number] Closed 07/18/2018 07/18/2019 1 1 EL MAKING MACHINE OPERATOR Outpatient (Routine) - Closed Specialty Diagnoses / Procedures Referred By Contact Refer red To Contact Vascular Surgery Kemar Velásquez M.B.B. S. [place] [address] [place] [address] Referral ID Status Reason Start Date Expiration Date Visits Requ ested Visits Authorized [id number] Closed 07/18/2018 07/18/2019 1 1 EL MAKING MACHINE OPERATOR Reason for Visit Outpatient (Routine) - Closed Specialty Diagnoses / Procedures Referred By Contact Refer red To Contact Vascular Surgery Diagnoses . Kemar Velásquez M.B.B.S. [facility] [address] [place] [phone] Referral ID Status Reason Start Date Expiration Date Visits Requ nicolled Visits Authorized [id number] Closed 06/09/2018 06/09/2019 1 1 Encounter Details Date Type Department Care Team Description 07/18/2018 Office Visit Division of Vascular Kemar Velásquez Periph eracarline Arterial Disease (HCC) (Primary Dx); and Endovascular M.B.B.S. Atherosclerosis Of [place] Arteries Of Le ft Leg With Ulceration Of Unspecified Site (HCC); Surgery in [address] Atherosclerosis Of [place] Arteries Of Ex tremities With Intermittent Claudication Right Leg (HCC) [place], [place] [address] [place] [address] [place], [place] [phone] (Work) [phone] Social History Tobacco Use Types Packs/Day Years [...] How often do you attend bahai or muslim services? 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 DIAGNOSIS peripheral arterial disease Frankie ReneeB.S. EL MAKING MACHINE OPERATOR documented in this encounter Miscellaneous Notes Addendum Note - Daly Lawrence RFeiN. - 07/18/2018 2:20 PM TASSEL MAKING MACHINE OPERATOR Addended by: DALY LAWRENCE on: 07/18/2018 03:59 PM Modules accepted: Orders EL MAKING MACHINE OPERATOR documented in this encounter Plan of Treatment Scheduled Referrals Name Type Priority Associated Diagnoses Order S chedule Vascular Surgery Outpatient Referral Routine Expe cted: office visit 01/18/2019 (clinic) (Approximate), Expires: 07/18/2021 documented as of this encounter Results Lower Extremity Arterial (MIMI) - TCPO2 (Wound) (05/03/2019 11:13 AM TASSEL MAKING MACHINE OPERATOR) Anatomical Region Laterality Modality Other Specimen (Source) Anatomical Collection Method Collection Time Re ceived Time Location / / Volume Laterality 05/03/2019 9:53 AM TASSEL MAKING MACHINE OPERATOR Narrative 05/03/2019 9:53 AM TASSEL MAKING MACHINE OPERATOR Right: Doppler Waveforms: ? Normal at all [...] Lower Extremity Arteries Bilateral (05/03/2019 8:44 AM TASSEL MAKING MACHINE OPERATOR) Anatomical Region Laterality Modality Lower Extremity, Ultrasound RST LOS, Ultrasound ARZ LOS, Rodríguez ateral Ultrasound Ultrasound FLA LOS, Procedural Specimen (Source) Anatomical Collection Method Collection Time Re ceived Time Location / / Volume Laterality 05/03/2019 9:35 AM TASSEL MAKING MACHINE OPERATOR Impressions 05/03/2019 9:42 AM TASSEL MAKING MACHINE OPERATOR 1. Stable mild right common femoral artery [...] GINA jose nosis. Narrative 05/03/2019 9:42 AM TASSEL MAKING MACHINE OPERATOR EXAM: US LOWER EXTREMITY ARTERIES BILATERAL Exam performed with color and spectral D oppler analysis. 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 Stable mild elevation in [facility] in the [place] femoral [...] Arteries Left with Doppler (05/03/2019 8:04 AM TASSEL MAKING MACHINE OPERATOR) Anatomical Region Laterality Modality Abdomen, Pelvis, Ultrasound RST LOS, Ultrasound ARZ LOS, Lef t Ultrasound Ultrasound FLA LOS, Procedural Specimen (Source) Anatomical Collection Method Collection Time Re ceived Time Location / / Volume Laterality 05/03/2019 8:53 AM TASSEL MAKING MACHINE OPERATOR Impressions 05/03/2019 9:35 AM TASSEL MAKING MACHINE OPERATOR 1. Progression in high-grade stenosis of the distal left external iliac artery. 2. Stable elevated velocities in the lef t common iliac artery stent suggestive of moderate stent stenosis. Narrative 05/03/2019 9:35 AM TASSEL MAKING MACHINE OPERATOR EXAM: US AORTA ILIAC ARTERIES LEFT WITH [...] suggestive of moderate stent stenosis. Kemar DavidB.SFei [facility] [place] PROCEDURES documented in this encounter Visit Diagnoses Diagnosis Peripheral Arterial Disease (HCC) - Prim dat Atherosclerosis Of [place] Arteries Of Le ft Leg With Ulceration Of Unspecified Site (HCC) Atherosclerosis Of [place] Arteries Of Ex tremities With Intermittent Claudication Right Leg (HCC) Peripheral Arterial Disease (HCC) - Prim dat Atherosclerosis Of [place] Arteries Of Le ft Leg With Ulceration Of Unspecified Site (HCC) Atherosclerosis Of [place] Arteries Of Ex tremities With Intermittent Claudication Right Leg (HCC) Peripheral Arterial Disease (HCC) Atherosclerosis Of [place] Arteries Of Le ft Leg With Ulceration Of Unspecified Site (HCC) Atherosclerosis Of [place] Arteries Of Ex tremities With Intermittent Claudication Right Leg (HCC) Peripheral Arterial Disease (HCC) Atherosclerosis Of [place] Arteries Of Le ft Leg With Ulceration Of Unspecified Site (HCC) Atherosclerosis Of [place] Arteries Of Ex tremities With Intermittent Claudication Right Leg (HCC) documented in this encounter Additional Health Concerns Assessment Noted Time PHQ-9 Depression Total Score: 3 01/03/2018 10:38 AM CD T documented as of this encounter
--- OUTSIDE RECORDS SUMMARY | 2022-04-28 14:44 | XMS_ITS | Encounter Summary ---
:1950 Author Organization [facility] Address [address] [place] [address] Care Team Providers Name Role Phone Unavailable Primary Care Provider Unavailable Reason for Visit Reason Comments Med Refill Encounter Details Date Type Department Care Team Description 11/20/2018 Refill Department of Family Medicine, Bambi Adler Med Refill [facility], in Renee Phillips M.D. [place] [address] [place] [address] [place] [address] [phone] Social History Tobacco Use Types Packs/Day Years [...] How often do you attend confucianism or bahai services? 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
--- OUTSIDE RECORDS SUMMARY | 2022-04-28 14:44 | XMS_ITS | Encounter Summary ---
:1950 Author Organization [facility] Address [address] [place] [address] Care Team Providers Name Role Phone Unavailable [...] How often do you attend taoist or voodoo services? Never 03/25/2021 Do you [...] at Date Recorded Male 03/24/2021 8:13 PM CREPING MACHINE OPERATOR documented as of this encounter Plan of Treatment Not on filedocumented as of this encounter Procedures Procedure Name Priority Date/Time Associated Diagnosis Comme nts VASCULAR IMAGE EXAM Routine 07/18/2018 12:10 PM R esults for this CREPING MACHINE OPERATOR procedure are i n the results section. documented in this encounter Results Lower Arterial-Vascular Image Exam (07/18/2018 12:10 PM CREPING MACHINE OPERATOR) Specimen (Source) Anatomical Collection Method Collection Time Re ceived Time Location / / Volume Laterality 07/18/2018 12:07 PM CREPING MACHINE OPERATOR Narrative IIMS - 07/18/2018 12:28 PM CREPING MACHINE OPERATOR This order has been created and [...]
--- OUTSIDE RECORDS SUMMARY | 2022-04-28 14:44 | XMS_ITS | Encounter Summary ---
:1950 Author Organization [facility] Address [address] [place] [address] Care Team Providers Name Role Phone Unavailable Primary Care Provider Unavailable Reason for Visit Reason Comments Wrist Pain left Outpatient (Routine) - Closed Specialty Diagnoses / Procedures Referred By Referred To Contact Contact Physical Medicine and Diagnoses Diabetes Mellitus Type 2 With Diabetic Neuropathy Hyperglycemic (HCC) [facility] Renee preston M.D. [address] [place] [address] Referral ID Status Reason Start Date Expiration Date Visits Requ ested Visits Authorized [id number] Closed 04/24/2018 04/24/2019 1 1 Encounter Details Date Type Department Care Team Description 04/26/2018 Comprehensive Visit Department of Smith Petersen Arthri tis Wrist (Primary Dx); Physical Medicine and [place] [address] [place], [place] [phone] Social History Tobacco Use Types Packs/Day Years [...] How often do you attend buddhist or orthodoxy services? 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 documented as of this encounter Last Filed Vital Signs Vital Sign Reading Time Taken Comments Blood Pressure 125/71 04/26/2018 9:25 AM PROFESSOR OF ENVIRONMENTAL STUDIES Pulse 67 04/26/2018 9:25 AM PROFESSOR OF ENVIRONMENTAL STUDIES Temperature 36.8 ??C (98.2 ??F) 04/26/2018 9:25 AM PROFESSOR OF ENVIRONMENTAL STUDIES Respiratory Rate - - Oxygen Saturation - - Inhaled Oxygen Concentration - - Weight 84.9 kg (187 lb 2.7 oz) 04/26/2018 9:25 AM PROFESSOR OF ENVIRONMENTAL STUDIES Height - - Body Mass Index 28.24 04/18/2018 9:19 AM PROFESSOR OF ENVIRONMENTAL STUDIES documented in this encounter Patient Instructions Patient [...] __ Follow-up clinic appointment __ Scheduling desk ESSOR OF ENVIRONMENTAL STUDIES documented in this encounter Consult Notes Smith [...] mm balloon; Surgeon: Kemar Velásquez M.B.B.SFei; Location: [facility] OR ??? ARTHROSCOPIC REPAIR OF [...] popliteal and /or tibial artery angioplasty/stent Notes: [id number] ??? ENDOVASCULAR ILIAC AND/OR FEMORAL AND/OR POPLITEAL AND /OR TIBIAL ARTERY ANGIOPLASTY/STENT Right08/31/2017 Endovascular iliac and/or femoral and/or popliteal and /or tibial artery angioplasty/stent Notes: [id number] ??? FEMORAL ARTERY STENT Right 08/31/2017 ??? FEMORAL ENDARTERECTOMY, PATCH ANGIOPLASTY/INTERPOSITION GRAFT WITH/WITHOUT PROFUNDOPLASTY Left 04/04/2017 Femoral endarterectomy, patch angioplasty/interposition graft with/without profundoplasty Notes: [id number] ??? NM SESTAMIBI W/DOBUTAMINE 1 DA postive [...] is retired. 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 Family History Problem [...] would be appropriate. Smith Petersen DO, CAQSM Neckties Painter Substance Abuse Technician Physical Medicine & Rehabilitation ESSOR OF ENVIRONMENTAL STUDIES documented in this encounter Plan of Treatment Not on filedocumented as of this encounter Visit Diagnoses Diagnosis Arthritis Wrist - Primary Pain Wrist Left documented in this encounter Additional Health Concerns Assessment Noted Time PHQ-9 Depression Total Score: 3 01/03/2018 10:38 AM CD T documented as of this encounter
--- OUTSIDE RECORDS SUMMARY | 2022-04-28 14:44 | XMS_ITS | Encounter Summary ---
:1950 Author Organization [facility] Address [address] [place] [address] Care Team Providers Name Role Phone Unavailable Primary Care Provider Unavailable Reason for Visit Reason Comments Med Refill Encounter Details Date Type Department Care Team Description 12/25/2018 Refill Department of Family Medicine, Bambi Adler Med Refill [facility], in Renee Phillips M.D. [place] [address] [place] [address] [place] [address] [phone] Social History Tobacco Use Types Packs/Day Years [...] How often do you attend bahai or spiritism services? Never 03/25/2021 Do you [...] AND ASSESSOR documented as of this encounter Plan of Treatment Not on filedocumented as of this encounter Visit Diagnoses Not on filedocumented in this encounter Additional Health Concerns Assessment Noted Time PHQ-9 Depression Total Score: 3 01/03/2018 10:38 AM CD T documented as of this encounter
--- OUTSIDE RECORDS SUMMARY | 2022-04-28 14:44 | XMS_ITS | Encounter Summary ---
:1950 Author Organization [facility] Address [address] [place] [address] Care Team Providers Name Role Phone Unavailable Primary Care Provider Unavailable Encounter Details Date Type Department Care Team Description 07/18/2018 Hospital Encounter Department of Kemar Velásquez Atheros clerosis Of [place] Ar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 (HCC); Radiology, Santiago Reyes Atherosclerosis Of [place] Arteries Of Le ft Leg With Ulceration Of Unspecified Site (HCC) Building, in [address] [place] [address] [place] [address] [place], [place] (Work) [address] [phone] Social History Tobacco Use Types Packs/Day Years [...] How often do you attend taoism or scientologist services? 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 1. New right common femoral [...] w ithout stenosis. Narrative 07/18/2018 3:03 PM CHAR CONVEYOR TENDER CELLAR EXAM: US LOWER EXTREMITY ARTERIES BILATERAL Exam [...] this encounter Visit Diagnoses Diagnosis Atherosclerosis Of [place] Arteries Of Ex tremities With Intermittent Claudication Right Leg (HCC) Atherosclerosis Of [place] Arteries Of Le ft Leg With Ulceration Of Unspecified Site (HCC) documented in this encounter Additional Health Concerns Assessment Noted Time PHQ-9 Depression Total Score: 3 01/03/2018 10:38 AM CD T documented as of this encounter
--- OUTSIDE RECORDS SUMMARY | 2022-04-28 14:44 | XMS_ITS | Encounter Summary ---
:1950 Author Organization [facility] Address [address] [place] [address] Care Team Providers Name Role Phone Unavailable Primary Care Provider Unavailable Encounter Details Date Type Department Care Team Description 04/21/2018 Orders Only Department of Neurology in Yessy Cohen M.D., [place], [place] [facility] [address] [facility] [address] [place] [address] [place], [place] [phone] (Wo rk) Social History Tobacco Use [...] often do you attend oriental orthodox or jew services? 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
--- OUTSIDE RECORDS SUMMARY | 2022-04-28 14:44 | XMS_ITS | Encounter Summary ---
:1950 Author Organization [facility] Address [address] [place] [address] Care Team Providers Name Role Phone Unavailable Primary Care Provider Unavailable Reason for Visit Reason Comments Diabetes A1C elevated to 8.3 Outpatient (Routine) - Closed Specialty Diagnoses / Procedures Referred By Contact Refer red To Contact Family Medicine Diagnoses Diabetes Mellitus Type 2 With Diabetic Neuropathy Hyperglycemic (HCC) SHIVA Catalan [facility] Demetri Duran M.D. [address] [place] [address] Referral ID Status Reason Start Date Expiration Date Visits Requ ested Visits Authorized [id number] Closed 04/24/2018 04/24/2019 1 1 Encounter Details Date Type Department Care Team Description 05/01/2018 Comprehensive Visit Department of Irma Zacarias erm Use Of Insulin Active (HCC) (Primary Dx); Family Medicine, J, GREIGE MENDER, Diabetes Me llitus Type 2 With Diabetic Neuropathy Hyperglycemic (HCC) [facility], [facility] in [place], [address] [phone] Social History Tobacco Use [...] How often do you attend jewish or voodoo services? Never 03/25/2021 Do you [...] at Date Recorded Male 03/24/2021 8:13 PM BOARD OPERATOR documented as of this encounter Last Filed Vital Signs Vital Sign Reading Time Taken Comments Blood Pressure 147/70 05/01/2018 10:35 AM BOARD OPERATOR Pulse 74 05/01/2018 10:29 AM BOARD OPERATOR Temperature 36.5 ??C (97.7 ??F) 05/01/2018 10:29 AM BOARD OPERATOR Respiratory Rate 16 05/01/2018 10:29 AM BOARD OPERATOR Oxygen Saturation - - Inhaled Oxygen Concentration - - Weight 84.5 kg (186 lb 6.4 oz) 05/01/2018 10:29 AM BOARD OPERATOR Height - - Body Mass Index 28.12 04/18/2018 9:19 AM BOARD OPERATOR documented in this encounter Patient Instructions Patient InstructionsIrma Zacarias APRN, C.N.P. - 05/01/2018 11:00 AM BOARD OPERATOR Take Humalog insulin before meals. D OPERATOR AttachmentsThe following attachments cannot be sent through Care Everywhere. Basic Guidelines for Diabetes Meal Planning ([place]i)documented in this encounter Progress Notes Irma Zacarias [...] Rash itchy ??? Pregabalin Anaphylaxis swell ??? 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 If fasting blood sugars in the morning remain [id number] increase Lantus to 42 units daily. Start taking Humalog insulin right before eating 3 times daily. He will call with blood sugars in a week and we will continue to adjust insulin as needed. [id number] in 3 months. Schedule dilated eye exam. [...] HEALTH MAINTENANCE: Due for dilated eye exam. 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
--- OUTSIDE RECORDS SUMMARY | 2022-04-28 14:44 | XMS_ITS | Encounter Summary ---
:1950 Author Organization [facility] Address [address] [place] [address] Care Team Providers Name Role Phone Unavailable Primary Care Provider Unavailable Encounter Details Date Type Department Care Team Description 04/19/2019 Clinical Communication [facility] Delmy Phillips [place] [address] [place] [phone] Social History Tobacco Use Types Packs/Day Years [...] How often do you attend restorationist or congregational services? 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
--- OUTSIDE RECORDS SUMMARY | 2022-04-28 14:44 | XMS_ITS | Encounter Summary ---
:1950 Author Organization [facility] Address [address] [place] [address] Care Team Providers Name Role Phone Unavailable Primary Care Provider Unavailable Reason for Visit Reason Comments Med Refill Encounter Details Date Type Department Care Team Description 07/13/2018 Refill Department of Family Medicine, Bambi Adler Med Refill [facility], in Renee Phillips M.D. [place] [address] [place] [address] [place] [address] [phone] Social History Tobacco Use Types Packs/Day Years [...] How often do you attend muslim or anabaptist services? 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 CHIEF SUSTAINABILITY OFFICER documented as of this encounter Miscellaneous [...] 15 Last Refill: 05/17/2018 Pharmacy: Jinny Phillips F SUSTAINABILITY OFFICER documented in this encounter Plan of Treatment Not on filedocumented as of this encounter Visit Diagnoses Not on filedocumented in this encounter Additional Health Concerns Assessment Noted Time PHQ-9 Depression Total Score: 3 01/03/2018 10:38 AM CD T documented as of this encounter
--- OUTSIDE RECORDS SUMMARY | 2022-04-28 14:44 | XMS_ITS | Encounter Summary ---
:1950 [facility] Address [address] [place] [address] Care Team Providers Name Role Phone Unavailable Primary Care Provider Unavailable Reason for Referral Outpatient (Routine) - Closed Specialty Diagnoses / Procedures Referred By Contact Refer red To Contact Vascular Surgery Diagnoses . Kemar 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 Procedures Lower Extremity Arterial (MIMI) - TCPO2 (Wound) MS STUDY EXT ARTERY > 2 LVLS TRAVIS [address] [place] [address] Referral ID Status Reason Start Date Expiration Date Visits Requ ested Visits Authorized [id number] Closed 06/09/2018 06/09/2019 1 1 RSTITCH BINDER Encounter Details Date Type Department Care Team Description 06/09/2018 Orders Only Department of Eickhoff, Stacy Atherosc lerosis Of [place] Arteries Of Left Leg With Ulceration Of Unspecified Site (HCC) (Primary Dx); Vascular Medicine in [place] Atherosclerosis Of [place] Arteries Of Ex tremities With Intermittent Claudication Right Leg (HCC) [place], [place] [address] [place] [address] [phone] Social History Tobacco Use Types Packs/Day Years [...] How often do you attend alevism or synagogue services? 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 documented as of this encounter Plan of Treatment Scheduled Referrals Name Type Priority Associated Diagnoses Order [facility] Vascular Surgery Outpatient Referral Routine Expe cted: office visit 07/17/2018 (clinic) (Approximate), Expires: 06/09/2021 documented as of this encounter Results Lower Extremity Arterial (MIMI) - TCPO2 (Wound) (07/18/2018 12:51 PM COVERSTITCH BINDER) Anatomical Region Laterality Modality Other Specimen (Source) Anatomical Collection Method Collection Time Re ceived Time Location / / Volume Laterality 07/18/2018 12:07 PM COVERSTITCH BINDER Narrative 07/18/2018 12:07 PM COVERSTITCH BINDER Right: Doppler Waveforms: ? Normal at all [...] Iliac Left with Doppler (07/18/2018 12:09 PM COVERSTITCH BINDER) Anatomical Region Laterality Modality Abdomen, Pelvis, Ultrasound RST LOS, Ultrasound ARZ LOS, Lef t Ultrasound Ultrasound FLA LOS Specimen (Source) Anatomical Collection Method Collection Time Re ceived Time Location / / Volume Laterality 07/18/2018 12:25 PM COVERSTITCH BINDER Impressions 07/18/2018 3:36 PM COVERSTITCH BINDER IMPRESSION: ?? 1. New high velocities in the stented le ft common iliac artery stent suggestive of stenosis. 2. Left external iliac artery stenosis. Narrative 07/18/2018 3:36 PM COVERSTITCH BINDER EXAM: US AORTA ILIAC ARTERIES LEFT WITH DOPPLER Exam performed with color and spectral D oppler analysis. COMPARISON: 02/08/2018 ultrasound and and CTA FINDINGS: ?? LEFT: The common iliac artery near the o rigin is obscured by overlying bowel gas. Significant stenosis in the stented proximal common iliac artery has developed since the prior study (395 tdo anthony 144 cm/s). Velocities remain elevated in [...] Lower Extremity Arteries Bilateral (07/18/2018 12:09 PM COVERSTITCH BINDER) Anatomical Region Laterality Modality Lower Extremity, Ultrasound RST LOS, Ultrasound ARZ LOS, Travis ateral Ultrasound Ultrasound FLA LOS Specimen (Source) Anatomical Collection Method Collection Time Re ceived Time Location / / Volume Laterality 07/18/2018 12:32 PM COVERSTITCH BINDER Impressions 07/18/2018 3:03 PM COVERSTITCH BINDER IMPRESSION: ?? 1. New right common femoral [...] w ithout stenosis. Narrative 07/18/2018 3:03 PM COVERSTITCH BINDER EXAM: US LOWER EXTREMITY ARTERIES BILATERAL Exam [...] this encounter Visit Diagnoses Diagnosis Atherosclerosis Of [place] Arteries Of Le ft Leg With Ulceration Of Unspecified Site (HCC) - Primary Atherosclerosis Of [place] Arteries Of Ex tremities With Intermittent Claudication Right Leg (HCC) Atherosclerosis Of [place] Arteries Of Ex tremities With Intermittent Claudication Right Leg (HCC) Atherosclerosis Of [place] Arteries Of Le ft Leg With Ulceration Of Unspecified Site (HCC) Atherosclerosis Of [place] Arteries Of Ex tremities With Intermittent Claudication Right Leg (HCC) Atherosclerosis Of [place] Arteries Of Le ft Leg With Ulceration Of Unspecified Site (HCC) Atherosclerosis Of [place] Arteries Of Ex tremities With Intermittent Claudication Right Leg (HCC) Atherosclerosis Of [place] Arteries Of Le ft Leg With Ulceration Of Unspecified Site (HCC) documented in this encounter Additional Health Concerns Assessment Noted Time PHQ-9 Depression Total Score: 3 01/03/2018 10:38 AM CD T documented as of this encounter
--- OUTSIDE RECORDS SUMMARY | 2022-04-28 14:44 | XMS_ITS | Encounter Summary ---
:1950 Author Organization [facility] Address [address] [place] [address] Care Team Providers Name Role Phone Unavailable Primary Care Provider Unavailable Reason for Visit Reason Comments Med Refill Encounter Details Date Type Department Care Team Description 03/27/2019 Refill Department of Family Medicine, Bambi Adler Med Refill [facility], in Renee Phillips M.D. 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 R BLENDER HELPER documented in this encounter Plan of Treatment Not on filedocumented as of this encounter Visit Diagnoses Not on filedocumented in this encounter Additional Health Concerns Assessment Noted Time PHQ-9 Depression Total Score: 3 01/03/2018 10:38 AM CD T documented as of this encounter
--- OUTSIDE RECORDS SUMMARY | 2022-04-28 14:44 | XMS_ITS | Encounter Summary ---
:1950 Author Organization [facility] Address [address] [place] [address] Care Team Providers Name Role Phone Elsewhere, Pcp Primary Care Provider Unavailable Encounter Details Date Type Department Care Team Description 04/19/2019 Orders Only Department of Ruthie Diabetes M gautam Type 2 Community Internal Renee means, With Othe r Circulatory Medicine in [place] Hernandez Complication [place] [address] Hyperglycemic (HCC) [address] [place], [place] (Primary Dx) ANGIE HERNANDEZ [phone] Social History Tobacco Use Types Packs/Day Years [...] at Date Recorded 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 documented as of this encounter Plan of Treatment Not on filedocumented as of this encounter Visit Diagnoses Diagnosis Diabetes Mellitus Type 2 With Other Circ ulatory Complication Hyperglycemic (HCC) - Primary documented in this encounter Additional Health Concerns Infection Onset Date Last Indicated Resolved Time COVID19 Pending 05/08/2020 05/08/2020 05/08/2020 2:44 PM CALENDERING MACHINE OPERATOR Assessment Noted Time PHQ-9 Depression Total Score: 3 01/03/2018 10:38 AM CD T documented as of this encounter Care Teams Agricultural Commodities Grader Relationship Specialty Start Date End Date Elsewhere, Pcp PCP - General Family Medicine 01/29/20 documented as of this encounter
--- OUTSIDE RECORDS SUMMARY | 2022-04-28 14:44 | XMS_ITS | Encounter Summary ---
:1950 Author Organization [facility] Address [address] [place] [address] Care Team Providers Name Role Phone Unavailable Primary Care Provider Unavailable Reason for Visit Reason Comments Med Refill Encounter Details Date Type Department Care Team Description 03/29/2019 Refill Department of Family Medicine, Bambi Adler Med Refill [facility], in Renee Phillips M.D. [place] [address] [place] [address] [place] [address] [phone] Social History Tobacco Use Types Packs/Day Years [...] How often do you attend islam or mormon services? 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
--- OUTSIDE RECORDS SUMMARY | 2022-04-28 14:44 | XMS_ITS | Encounter Summary ---
:1950 Author Organization [facility] Address [address] [place] [address] Care Team Providers Name Role Phone Unavailable Primary Care Provider Unavailable Reason for Visit Reason Comments Med Refill Encounter Details Date Type Department Care Team Description 03/07/2019 Refill Department of Family Medicine, Bambi Adler Med Refill [facility], in Renee Phillips M.D. [place] [address] [place] [address] [place] [address] [phone] Social History Tobacco Use Types Packs/Day Years [...] How often do you attend quaker or mandaen services? 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
--- OUTSIDE RECORDS SUMMARY | 2022-04-28 14:44 | XMS_ITS | Encounter Summary ---
:1950 Author Organization [facility] Address [address] [place] [address] Care Team Providers Name Role Phone Unavailable Primary Care Provider Unavailable Reason for Visit Reason Comments Med Refill Encounter Details Date Type Department Care Team Description 10/24/2018 Refill Department of Family Medicine, Bambi Adler Med Refill [facility], in Renee Phillips M.D. [place] [address] [place] [address] [place] [address] [phone] Social History Tobacco Use Types Packs/Day Years [...] How often do you attend sikhism or holiness services? 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
--- OUTSIDE RECORDS SUMMARY | 2022-04-28 14:44 | XMS_ITS | Encounter Summary ---
:1950 Author Organization [facility] Address [address] [place] [address] Care Team Providers Name Role Phone Unavailable Primary Care Provider Unavailable Encounter Details Date Type Department Care Team Description 04/21/2018 Hospital Encounter Department of [facility] es Mellitus Laboratory Medicine Renee beth, Type 2 (HCC) in [place] [address] [phone] Social History Tobacco Use Types Packs/Day Years [...] How often do you attend rastafarian or jainism services? 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 lancets [facility] Dispense item 0 08/23/2014 9 covered by [...] 1:54 PM Diabetes Mellitus Results for this FOOT PIECE ASSEMBLER Type 2 (HCC) procedure are i n the results section. documented in this encounter Results (ABNORMAL) Hemoglobin A1c (04/21/2018 1:54 PM FOOT PIECE ASSEMBLER) P athologist Signature Hemoglobin A1c, 8.3 (H) 4.2 - 5.6 04/21/2018 [facility] B % 4:16 PM FOOT PIECE ASSEMBLER [facility] Comment: Hemoglobin A1c values greater than or eq ual to 6.5 percent are diagnostic for diabetes mellitus. ?? Diagnosis should be confirmed by repeat testing. ??In diabet ic patients, HbA1c goals should be discussed with healthcar e provider. Specimen Anatomical Collection Method Collection Time Receive d Time (Source) Location / / Volume Laterality Blood (Blood, 04/21/2018 1:54 PM 04/21/20 18 3:34 Venous) FOOT PIECE ASSEMBLER PM FOOT PIECE ASSEMBLER Renee Catalan M.D. LAB BLOOD ADD-ON Performing Organization Address City/State/ZIP Code Phon e Number [facility] [address] [place] [address] LAB documented in this encounter Visit Diagnoses Diagnosis Diabetes Mellitus Type 2 (HCC) documented in this encounter Additional Health Concerns Assessment Noted Time PHQ-9 Depression Total Score: 3 01/03/2018 10:38 AM CD T documented as of this encounter
--- OUTSIDE RECORDS SUMMARY | 2022-04-28 14:44 | XMS_ITS | Encounter Summary ---
:[address] [facility] Address [address] [place] [address] Care Team Providers Name Role Phone Unavailable Primary Care Provider Unavailable Encounter Details Date Type Department Care Team Description 04/21/[address] [facility] ANGIE Pinon ea Provider, Historical [address] [place] [address] Social History Tobacco Use Types Packs/Day Years [...] How often do you attend anabaptism or mormon services? 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
--- OUTSIDE RECORDS SUMMARY | 2022-04-28 14:44 | XMS_ITS | Encounter Summary ---
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 [address] [place] [address] Referral ID Status Reason Start Date Expiration Date Visits Requ ested Visits Authorized [id number] Closed 04/21/2018 04/21/2019 1 1 Encounter Details Date Type Department Care Team Description 04/24/2018 Office Visit Department of Family Lina Gtz etelizabeth Mellitus Type 2 With Diabetic Neuropathy Hyperglycemic (HCC) (Primary Dx); Medicine, Renee Snider, Perfecto Wr ist Right; Clinic, in [place] Screening Colon Cancer Average Risk; [place] [address] Need Vaccine Immunization [address] [place], [place] [phone] Social History Tobacco Use Types Packs/Day Years [...] Date Recorded 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 Pregabalin Anaphylaxis swell ??? Jjzcmju-Bcl-Cwp Reductase Inhibitors Myalgia PAST MEDICAL / SURGICAL [...] popliteal and /or tibial artery angioplasty/stent Notes: [id number] ??? ENDOVASCULAR ILIAC AND/OR FEMORAL AND/OR POPLITEAL AND /OR TIBIAL ARTERY ANGIOPLASTY/STENT Right08/31/2017 Endovascular iliac and/or femoral and/or popliteal and /or tibial artery angioplasty/stent Notes: [id number] ??? FEMORAL ARTERY STENT Right 08/31/2017 ??? FEMORAL ENDARTERECTOMY, PATCH ANGIOPLASTY/INTERPOSITION GRAFT WITH/WITHOUT PROFUNDOPLASTY Left 04/04/2017 Femoral endarterectomy, patch angioplasty/interposition graft with/without profundoplasty Notes: [id number] ??? NM SESTAMIBI W/DOBUTAMINE 1 DA postive [...] an appointment with Irma Zacarias CNP, our parent educator. #2 Pain Wrist Right PLAN: Recommended [...] behalf by Juju Ibarra, a trained medical record transcriber. The creation of this record is based on the scribe's personal observations and the provider's statements to them. This document has been ch ecked and approved by the attending provider. MBLER METAL BUILDING documented in this encounter Plan of Treatment [...]
--- OUTSIDE RECORDS SUMMARY | 2022-04-28 14:44 | XMS_ITS | Encounter Summary ---
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 Current Can Nursing/Provider leave a detailed message: yes Did the patient refuse triage through Nurse line? (for symptom based concerns) NA Action Needed: Please call back Name of Medication (if relevant): Insulin AND STUD MACHINE OPERATOR documented in this encounter Plan of Treatment Not on filedocumented as of this encounter Visit Diagnoses Not on filedocumented in this encounter Additional Health Concerns Assessment Noted Time PHQ-9 Depression Total Score: 3 01/03/2018 10:38 AM CD T documented as of this encounter
--- OUTSIDE RECORDS SUMMARY | 2022-04-28 14:44 | XMS_ITS | Encounter Summary ---
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
--- OUTSIDE RECORDS SUMMARY | 2022-04-28 14:44 | XMS_ITS | Encounter Summary ---
:1950 Author Organization [facility] Address [address] [place] [address] Care Team Providers Name Role Phone Unavailable Primary Care Provider Unavailable Encounter Details Date Type Department Care Team Description 07/18/2018 Hospital Encounter Department of Kemar Velásquez Atheros clerosis Of [place] Ar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 (HCC); Radiology, Santiago Reyes Atherosclerosis Of [place] Arteries Of Le ft Leg With Ulceration Of Unspecified Site (HCC) Building, in [address] [place] [phone] [place] [address] [place], [place] (Work) [address] [phone] Social History Tobacco Use Types Packs/Day Years [...] How often do you attend islam or pentecostalism services? 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 1. New high velocities in the stented le ft common iliac artery stent suggestive of stenosis. 2. Left external iliac artery stenosis. Narrative 07/18/2018 3:36 PM PHOTO SPECIALIST EXAM: US AORTA ILIAC ARTERIES LEFT WITH [...] this encounter Visit Diagnoses Diagnosis Atherosclerosis Of [place] Arteries Of Ex tremities With Intermittent Claudication Right Leg (HCC) Atherosclerosis Of [place] Arteries Of Le ft Leg With Ulceration Of Unspecified Site (HCC) documented in this encounter Additional Health Concerns Assessment Noted Time PHQ-9 Depression Total Score: 3 01/03/2018 10:38 AM CD T documented as of this encounter
--- OUTSIDE RECORDS SUMMARY | 2022-04-28 14:44 | XMS_ITS | Encounter Summary ---
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 [facility] Procedures Lower Extremity Arterial (MIMI) - TCPO2 (Wound) FL STUDY EXT ARTERY > 2 LVLS TRAVIS [address] [place], [place] [address] Referral ID Status Reason Start Date Expiration Date Visits Requ ested Visits Authorized [id number] Closed 06/09/2018 06/09/2019 1 1 Encounter Details Date Type Department Care Team Description 07/18/2018 Hospital Encounter Department of Kemar Velásquez Atheros clerosis Of [place] Ar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 (HCC); Vascular Medicine M.BFeiBFeiS. Atherosclerosis Of [place] Arteries Of Le ft Leg With Ulceration Of Unspecified Site (HCC) in [place] [address] [address] [place], [place] [address] [facility] [address] [place], [place] [phone] (Work) [phone] Social History Tobacco Use Types Packs/Day Years [...] How often do you attend religious or congregation services? 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 Normal at [...] this encounter Visit Diagnoses Diagnosis Atherosclerosis Of [place] Arteries Of Ex tremities With Intermittent Claudication Right Leg (HCC) Atherosclerosis Of [place] Arteries Of Le ft Leg With Ulceration Of Unspecified Site (HCC) documented in this encounter Additional Health Concerns Assessment Noted Time PHQ-9 Depression Total Score: 3 01/03/2018 10:38 AM CD T documented as of this encounter
--- OUTSIDE RECORDS SUMMARY | 2022-04-28 14:44 | XMS_ITS | Encounter Summary ---
:1950 Author Organization [facility] Address [address] [place] [address] Care Team Providers Name Role Phone Unavailable Primary Care Provider Unavailable Reason for Referral Outpatient (Routine) - Closed Specialty Diagnoses / Procedures Referred By Contact Refer red To Contact Family Medicine Diagnoses Diabetes Mellitus Type 2 With Diabetic Neuropathy Hyperglycemic (HCC) [facility] Demetri Duran M.D. [address] [place] [address] Referral ID Status Reason Start Date Expiration Date Visits Requ ested Visits Authorized [id number] Closed 04/21/2018 04/21/2019 1 1 D HANDYMAN Encounter Details Date Type Department Care Team Description 04/21/2018 Orders Only Department of [facility] Ruthie finnegan Mellitus Type 2 Medicine, Renee Antonio, With [facility], in [place] Hyperglycemic (HCC) [place] [address] (Primary Dx) [address] [facility] [place] [phone] Social History Tobacco Use Types Packs/Day Years [...] Date Recorded 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
[2022-04-28 14:45] LABS: Hemoglobin* 7.8 gm/dL (13.5-17.5); Slide Review Reflex No
--- NOTE | 2022-04-28 14:45 | PC.NURSE ---
Hgb 7.8. notified.
--- OUTSIDE RECORDS SUMMARY | 2022-04-28 14:45 | XMS_ITS | Encounter Summary ---
:1950 Author Organization [facility] Address [address] [place] [address] Care Team Providers Name Role Phone Unavailable Primary Care Provider Unavailable Reason for Visit Reason Onset Date Comments test only 03/09/2018 Encounter Details Date Type Department Care Team Description 03/09/2018 Clinical Communication Division of Vascular Eicvidya, test only and Endovascular Stacy Mcgee M.S., Surgery in [facility] [place] [facility] [address] [place] [address] [address] [place] [phone] Social History Tobacco Use Types Packs/Day Years [...] How often do you attend gnosticist or spiritism services? 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
--- OUTSIDE RECORDS SUMMARY | 2022-04-28 14:45 | XMS_ITS | Encounter Summary ---
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 TENANCE OPERATOR Telephone Encounter - Renee Catalan M.D. - 04/24/2018 5:29 PM MAINTENANCE OPERATOR We discussed colon cancer screening today. He would like to have that done but we need to clarify Plavix use. TENANCE OPERATOR Telephone Encounter - Maxi Strong - 04/20/2018 11:21 AM CST Reason for Communication: Pt calling to set up lab work. Pt says that he has met his deductible for the year- wondering if there was anything else Dr Duran would think to have done- before the end of the year. Noted that there was another order in [facility],but he thought he had that done in [place]. Current Can Nursing/Provider leave a detailed message: yes Did the patient refuse triage through Nurse line? (for symptom based concerns)not offered Action Needed: please call Name of Medication (if relevant): TENANCE OPERATOR documented in this encounter Plan of Treatment Not on filedocumented as of this encounter Visit Diagnoses Not on filedocumented in this encounter Additional Health Concerns Assessment Noted Time PHQ-9 Depression Total Score: 3 01/03/2018 10:38 AM CD T documented as of this encounter
--- OUTSIDE RECORDS SUMMARY | 2022-04-28 14:45 | XMS_ITS | Encounter Summary ---
:1950 Author Organization [facility] Address [address] [place] [address] Care Team Providers Name Role Phone Unavailable Primary Care Provider Unavailable Reason for Visit Reason Comments Med Refill Encounter Details Date Type Department Care Team Description 04/20/2018 Refill Department of Family Medicine, Bambi Adler Med Refill [facility], in [place] M.D. [place] [address] [place] [address] [place] [address] [phone] Social History Tobacco Use Types Packs/Day Years [...] How often do you attend hoahaoism or synagogue services? 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
--- OUTSIDE RECORDS SUMMARY | 2022-04-28 14:45 | XMS_ITS | Encounter Summary ---
:1950 Author Organization [facility] Address [address] [place] [address] Care Team Providers Name Role Phone Unavailable Primary Care Provider Unavailable Reason for Visit Outpatient (Routine) - Closed Specialty Diagnoses / Procedures Referred By Contact Refer red To Contact Radiology Diagnoses Peripheral Arterial Disease (HCC) 5d-78 kg/bay R/RN natanael 18001/will flag ok Kemar Velásquez M.BFeiB.S. Rst Rad [facility] [place] Procedures CT ABDOMEN PELVIS ANGIOGRAM WITH IV CONTRAST RAD CT ABDOMEN PELVIS ANGIO [address] [facility] [address] [place] [address] [place] [address] Fax: Referral ID Status Reason Start Date Expiration Date Visits Requ ested Visits Authorized [id number] Closed 03/15/2018 03/15/2019 1 1 Encounter Details Date Type Department Care Team Description 03/15/2018 Hospital Encounter Department of Kemar Velásquez Periphe ral Arterial Radiology, Santiago M.B.B.S. Disease (HCC) Building, in [address] [place] [address] [place] [address] [place], [place] [phone] (Work) [phone] Social History Tobacco Use Types Packs/Day Years [...] How often do you attend tenriism or synagogue services? 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 lancets [facility] Dispense item 0 08/23/2014 9 covered [...] POCT ORDERABLES - DEVICE Performing Organization Address [facility] Phon e Number POC RST [facility] [address] [place], [place] [address] LABS (ABNORMAL) Creatinine, POCT (03/15/2018 8:08 AM CDT) P athologist Signature eGFR-Black/Afr 55 (L) >=60 03/15/2018 POC RST ican South African, mL/min/BSA 8:11 AM CDT [facility] POCT OUTPATIENT LABS Comment: ----ADDITIONAL INFORMATION---- Estimated GFR calculated using the 2009 CKD_EPI creatinine equation. eGFR Non-Black/ 48 (L) >=60 mL/min/BSA 03/15/20 18 8:11 POC RST JEWISH South African, POCT AM CDT OUTPATIENT LABS Comment: ----ADDITIONAL INFORMATION---- Estimated GFR calculated using the 2009 CKD_EPI creatinine equation. Specimen Anatomical Collection Method Collection Time Receive d Time (Source) Location / / Volume Laterality Blood 03/15/2018 8:08 AM 8 8:11 CDT AM CDT Unknown Provider LAB POCT ORDERABLES - DEVICE Performing Organization Address [facility] Phon e Number POC RST [facility] [address] [place], [place] [address] LABS documented in this [...]
--- OUTSIDE RECORDS SUMMARY | 2022-04-28 14:45 | XMS_ITS | Encounter Summary ---
:1950 Author Organization [facility] Address [address] [place] [address] Care Team Providers Name Role Phone Unavailable Primary Care Provider Unavailable Reason for Visit Reason Comments Med Refill Encounter Details Date Type Department Care Team Description 04/05/2018 Refill Department of Family Medicine, Bambi Adler Med Refill [facility], in [place] M.D. [place] [address] [place] [address] [place] [address] [phone] Social History Tobacco Use Types Packs/Day Years [...] How often do you attend episcopal or samaritan services? 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
--- OUTSIDE RECORDS SUMMARY | 2022-04-28 14:45 | XMS_ITS | Encounter Summary ---
:1950 Author Organization [facility] Address [address] [place] [address] Care Team Providers Name Role Phone Unavailable Primary Care Provider Unavailable Reason for Visit Reason Comments Med Refill Encounter Details Date Type Department Care Team Description 03/28/2018 Refill Department of Family Medicine, Bambi Adler Med Refill [facility], in [place] M.D. [place] [address] [place] [address] [place] [address] [phone] Social History Tobacco Use Types Packs/Day Years [...] How often do you attend samaritan or mandaeism services? 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
--- OUTSIDE RECORDS SUMMARY | 2022-04-28 14:45 | XMS_ITS | Encounter Summary ---
:[address] [facility] Address [address] [place] [address] Care Team Providers Name Role Phone Unavailable Primary Care Provider Unavailable Reason for Visit Reason Comments Restless legs Last visit 02/16/18 Appointment Request (Routine) - Closed Specialty Diagnoses / Procedures Referred By Contact Refer red To Contact Neurology Referral ID Status Reason Start Date Expiration Date Visits Requ ested Visits Authorized [id number] Closed 02/16/2018 02/16/2019 1 1 Encounter Details Date Type Department Care Team Description 04/21/2018 Office Visit Department of Yessy Cohen, Restless L eg Syndrome (Primary Dx); Neurology in [place]ylah., M.P.H. Neuropathy Peripheral [place], [place] [address] [place] [address] [phone] Social History Tobacco Use Types Packs/Day Years [...] How often do you attend buddhism or anabaptist services? 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 Patient has a pain specialist in [place]. Past Medical History: Diagnosis Date ??? Bruit [...] mm balloon; Surgeon: Kemar Velásquez M.B.B.S.; Location: [facility] OR ??? ARTHROSCOPIC REPAIR [...] popliteal and /or tibial artery angioplasty/stent Notes: [id number] ??? ENDOVASCULAR ILIAC AND/OR FEMORAL AND/OR POPLITEAL AND /OR TIBIAL ARTERY ANGIOPLASTY/STENT Right08/31/2017 Endovascular iliac and/or femoral and/or popliteal and /or tibial artery angioplasty/stent Notes: [id number] ??? FEMORAL ARTERY STENT Right 08/31/2017 ??? FEMORAL ENDARTERECTOMY, PATCH ANGIOPLASTY/INTERPOSITION GRAFT WITH/WITHOUT PROFUNDOPLASTY Left 04/04/2017 Femoral endarterectomy, patch angioplasty/interposition graft with/without profundoplasty Notes: [id number] ??? NM SESTAMIBI W/DOBUTAMINE 1 DA postive [...] Rash itchy ??? Pregabalin Anaphylaxis swell ??? Sfynbff-Zet-Cvh Reductase Inhibitors Myalgia Family History Problem Relation [...] is retired. 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 OBJECTIVE Vitals: 04/21/18 1404 BP: 125/73 Pulse: PHYSICAL EXAM COGNITION: Alert and oriented x 4. 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 MOTOR: Full strength [...] Yes Difficulty urinating: Yes Erectile dysfunction: Yes LANE PILOT HELPER documented in this encounter Plan of Treatment Not on filedocumented as of this encounter Visit Diagnoses Diagnosis Restless Leg Syndrome - Primary Neuropathy Peripheral documented in this encounter Additional Health Concerns Assessment Noted Time PHQ-9 Depression Total Score: 3 01/03/2018 10:38 AM CD T documented as of this encounter
--- OUTSIDE RECORDS SUMMARY | 2022-04-28 14:45 | XMS_ITS | Encounter Summary ---
:1950 Author Organization [facility] Address [address] [place] [address] Care Team Providers Name Role Phone Unavailable Primary Care Provider Unavailable Reason for Visit Reason Comments Med Refill Encounter Details Date Type Department Care Team Description 04/04/2018 Refill Department of Family Medicine, Bambi Adler Med Refill [facility], in [place] M.D. [place] [address] [place] [address] [place] [address] [phone] Social History Tobacco Use Types Packs/Day Years [...] How often do you attend synagogue or protestant services? 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
--- OUTSIDE RECORDS SUMMARY | 2022-04-28 14:45 | XMS_ITS | Encounter Summary ---
:1950 Author Organization [facility] Address [address] [place] [address] Care Team Providers Name Role Phone Unavailable Primary Care Provider Unavailable Encounter Details Date Type Department Care Team Description 03/22/2018 Clinical Communication Division of Vascular Eicwatsonoff, and Endovascular Stacy Mcgee M.S., Surgery in [facility] [address] [facility] [address] [place] [address] [phone] Social History Tobacco Use Types Packs/Day Years [...] How often do you attend yarsani or cheondoism services? Never 03/25/2021 Do you [...] at Date Recorded Male 03/24/2021 8:13 PM NUTRITION SERVICES AIDE documented as of this encounter Miscellaneous Notes Telephone Encounter - Stacy Correia M.S., R.N. - 03/22/2018 9:44 AM NUTRITION SERVICES AIDE PLAN The following information was provided: I [...] following references were used: nursing clinical judgement ITION SERVICES AIDE documented in this encounter Plan of Treatment Not on filedocumented as of this encounter Visit Diagnoses Diagnosis Peripheral Arterial Disease (HCC) - Prim dat documented in this encounter Additional Health Concerns Assessment Noted Time PHQ-9 Depression Total Score: 3 01/03/2018 10:38 AM CD T documented as of this encounter
--- OUTSIDE RECORDS SUMMARY | 2022-04-28 14:45 | XMS_ITS | Encounter Summary ---
:1950 Author Organization [facility] Address [address] [place] [address] Care Team Providers Name Role Phone Unavailable Primary Care Provider Unavailable Reason for Visit Auth/Cert Specialty Diagnoses / Procedures Referred By Contact Refer red To Contact Diagnoses Peripheral Arterial Disease (HCC) Procedures ID REVASC OPN/PERC ILIAC W STENT ID REVASC ILIAC ARTY STNT ANGPLST ID ANGIOGRAPHY EXT UNILAT S&I ID US GUIDE VASC ACCESS IR ENDOVASCULAR ANGIOPLASTY STENT ILIAC LOWER EXTREMITY; right femoral access Referral ID Status Reason Start Date Expiration Date Visits Requ ested Visits Authorized [id number] 1 1 Encounter Details Date Type Department Care Team Description 04/18/2018 Surgery RST ROMChrista PETERS OR Kemar Velásquez, 1. Ultrasound-guided [address] [place] [address] [address] common femoral arteries. [phone] [place], [place] 2. Left SFA 3r d order [id number] vessel catheter [phone] placement 3. Le ft pelvic (Work) angiogram [...] How often do you attend rastafarian or restoration services? 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 documented as of this encounter Last Filed Vital Signs Vital Sign Reading Time Taken Comments Blood Pressure 168/76 04/18/2018 9:19 AM WINDOW SHADE CUTTER Pulse 71 04/18/2018 9:19 AM WINDOW SHADE CUTTER Temperature 36.8 ??C (98.2 ??F) 04/18/2018 9:19 AM WINDOW SHADE CUTTER Respiratory Rate 16 04/18/2018 9:19 AM WINDOW SHADE CUTTER Oxygen Saturation 96% 04/18/2018 9:19 AM WINDOW SHADE CUTTER Inhaled Oxygen Concentration - - Weight 79.3 kg (174 lb 13.2 oz) 04/18/2018 9:19 AM WINDOW SHADE CUTTER Height 173.4 cm (5' 8.27) 04/18/2018 9:19 AM WINDOW SHADE CUTTER Body Mass Index 26.37 04/18/2018 9:19 AM WINDOW SHADE CUTTER documented in this encounter Discharge Instructions AttachmentsThe following attachments cannot be sent through Care Everywhere.Care Following Coronary Angiogram/Angioplasty/Stent Placement ??? Femoral (Leg) (Lao)documented in this encounter Medications at Time of [...] of iron total) by mouth daily. lancets [facility] Dispense item 0 08/23/2014 9 covered by [...] coordinated with Dr. Velásquez in 3-4 months. OW SHADE CUTTER documented in this encounter H&P Notes Dharmesh [...] outpatient exam Assessment and Plan: Plan Unchanged OW SHADE CUTTER documented in this encounter OR Notes Op [...] came up and over with a 6 Belgian 55 cm Ang sheath. The external iliac [...] Implant Name Type Inv. Item Serial No. Bottle Carrier Lot No. LRB No. Used Action STNT INNOVA OTW [id number] - [id number] Vascular Stent STNT INNOVA OTW [id number] [employer] [id number] Left 1 Implanted Shonda ReneeSFei OW SHADE CUTTER Brief Op Note - Dharmesh Castellanos M.B.BFeiS. - 04/18/2018 11:58 AM WINDOW SHADE CUTTER BRIEF OP NOTE Procedure(s): 1. Ultrasound-guided access [...] Implant Name Type Inv. Item Serial No. Bottle Carrier Lot No. LRB No. Used Action STNT INNOVA OTW [id number] - [id number] Vascular Stent STNT INNOVA OTW [id number] Actix [id number] Left 1 Implanted Amy Hale OW SHADE CUTTER documented in this encounter Plan of Treatment Not on filedocumented as of this encounter Procedures Procedure Name Priority Date/Time Associated Comments Diagnosis ADULT OXYGEN Routine 04/18/2018 4:43 THERAPY PM WINDOW SHADE CUTTER GLUCOSE POCT, B Routine 04/18/2018 3:09 Results f or this PM WINDOW SHADE CUTTER procedure are i n the results section. ADULT OXYGEN Routine 04/18/2018 3:05 THERAPY PM WINDOW SHADE CUTTER IR ENDOVASCULAR RAD - Routine 04/18/2018 2:59 Peripheral Results for this ANGIOPLASTY STENT (most inpatients PM WINDOW SHADE CUTTER Arterial Disease pr ocedure are in ILIAC LOWER and all (HCC) the results EXTREMITY outpatients) section. ACT, POCT, B Routine 04/18/2018 1:52 Results for this PM WINDOW SHADE CUTTER procedure are i n the results section. ACT, POCT, B Routine 04/18/2018 1:22 Results for this PM WINDOW SHADE CUTTER procedure are i n the results section. ACT, POCT, B Routine 04/18/2018 12:53 Results for this PM WINDOW SHADE CUTTER procedure are i n the results section. GLUCOSE POCT, B Routine 04/18/2018 12:51 Results for this PM WINDOW SHADE CUTTER procedure are i n the results section. ACT, POCT, B Routine 04/18/2018 12:20 Results for this PM WINDOW SHADE CUTTER procedure are i n the results section. GLUCOSE POCT, B Routine 04/18/2018 9:07 Results f or this AM WINDOW SHADE CUTTER procedure are i n the results section. documented in this encounter Results Glucose, POCT (04/18/2018 3:09 PM WINDOW SHADE CUTTER) athologist Signature Glucose, POCT, 102 70 - 140 04/18/2018 POC [facility] B mg/dL 3:14 PM WINDOW SHADE CUTTER SERVICES Specimen Anatomical Collection Method Collection Time Receive d Time (Source) Location / / Volume Laterality Blood 04/18/2018 3:09 PM 8 3:14 WINDOW SHADE CUTTER PM WINDOW SHADE CUTTER Unknown Provider LAB POCT ORDERABLES-MANUAL Performing Organization Address City/[facility]/ZIP Code Phon e Number POC [facility] SERVICES [address] [place] [address] IR ENDOVASCULAR ANGIOPLASTY STENT ILIAC LOWER EXTREMITY (04/18/2018 2:59 PM WINDOW SHADE CUTTER) Anatomical Region Laterality Modality Lower Extremity, Vascular Interventional RST LOS N/A X-Ray Angiography Specimen (Source) Anatomical Location Collection Method / Collectio n Time Received Time / Laterality Volume Narrative 04/18/2018 7:59 PM WINDOW SHADE CUTTER This result has an attachment that is no t available. Performed by surgeon - see Op Note for r esult. Kemar Reyes IMG IR PROCEDURES (ABNORMAL) ACT (Activated Clotting Time), POCT (04/18/2018 1:52 PM WINDOW SHADE CUTTER) athologist Signature Activated 218 (H) 84 - 139 04/18/[address] Clotting Time, sec 1:57 PM WINDOW SHADE CUTTER [facility] POCT INPATIENT LABS Specimen Anatomical Collection Method Collection Time Receive d Time (Source) Location / / Volume Laterality Blood 04/18/2018 1:52 PM 8 1:57 WINDOW SHADE CUTTER PM WINDOW SHADE CUTTER Unknown Provider LAB POCT ORDERABLES - DEVICE Performing Organization Address City/[facility] Code Phon e Number POC RST [facility] INPATIENT LABS [address] [facility] N [address] (ABNORMAL) ACT (Activated Clotting Time), POCT (04/18/2018 1:22 PM WINDOW SHADE CUTTER) athologist Signature Activated 223 (H) 84 - 139 04/18/[address] Clotting Time, sec 1:27 PM WINDOW SHADE CUTTER [facility] POCT INPATIENT LABS Specimen Anatomical Collection Method Collection Time Receive d Time (Source) Location / / Volume Laterality Blood 04/18/2018 1:22 PM 8 1:28 WINDOW SHADE CUTTER PM WINDOW SHADE CUTTER Unknown Provider LAB POCT ORDERABLES - DEVICE Performing Organization Address [facility] Phon e Number POC RST [facility] INPATIENT LABS [address] [address] (ABNORMAL) ACT (Activated Clotting Time), POCT (04/18/2018 12:53 PM WINDOW SHADE CUTTER) P athologist Signature Activated 213 (H) 84 - 139 04/18/[address] Clotting Time, sec 12:57 PM WINDOW SHADE CUTTER [facility] POCT INPATIENT LABS Specimen Anatomical Collection Method Collection Time Receive d Time (Source) Location / / Volume Laterality Blood 04/18/2018 12:53 04/18/2018 PM WINDOW SHADE CUTTER 12:57 PM WINDOW SHADE CUTTER Unknown Provider LAB POCT ORDERABLES - DEVICE Performing Organization Address [facility] Phon e Number POC RST [facility] INPATIENT LABS [address] [address] Glucose, POCT (04/18/2018 12:51 PM WINDOW SHADE CUTTER) P athologist Signature Glucose, POCT, 124 70 - 140 04/18/[address] B mg/dL 12:52 PM [facility] INPATIENT LABS Site ARTLINE 04/18/[address] 12:52 PM WINDOW SHADE CUTTER [facility] INPATIENT LABS Specimen Anatomical Collection Method Collection Time Receive d Time (Source) Location / / Volume Laterality Blood 04/18/2018 12:51 04/18/2018 PM WINDOW SHADE CUTTER 12:53 PM WINDOW SHADE CUTTER Unknown Provider LAB POCT ORDERABLES-MANUAL Performing Organization Address [facility] Phon e Number POC RST [facility] INPATIENT LABS [address] [address] (ABNORMAL) ACT (Activated Clotting Time), POCT (04/18/2018 12:20 PM WINDOW SHADE CUTTER) P athologist Signature Activated 228 (H) 84 - 139 04/18/[address] Clotting Time, sec 12:25 PM WINDOW SHADE CUTTER [facility] POCT INPATIENT LABS Specimen Anatomical Collection Method Collection Time Receive d Time (Source) Location / / Volume Laterality Blood 04/18/2018 12:20 04/18/2018 PM WINDOW SHADE CUTTER 12:26 PM WINDOW SHADE CUTTER Unknown Provider LAB POCT ORDERABLES - DEVICE Performing Organization Address City/State/ZIP Code Phon e Number POC RST [facility] INPATIENT LABS [address] [facility] [address] [address] (ABNORMAL) Glucose, POCT (04/18/2018 9:07 AM WINDOW SHADE CUTTER) Analysis Performed At Patho logist Time Signature Glucose, POCT, 164 (H) 70 - 140 04/18/2018 POC [facility] B mg/dL 9:11 AM WINDOW SHADE CUTTER SERVICES Site Capillary 04/18/2018 POC [facility] 9:11 AM WINDOW SHADE CUTTER SERVICES Last Intake NPO 04/18/2018 POC [facility] 9:11 AM WINDOW SHADE CUTTER SERVICES Specimen Anatomical Collection Method Collection Time Receive d Time (Source) Location / / Volume Laterality Blood 04/18/2018 9:07 AM 8 9:11 WINDOW SHADE CUTTER AM WINDOW SHADE CUTTER Unknown Provider LAB POCT ORDERABLES-MANUAL Performing Organization Address [facility]/ZIP Code Phon e Number POC [facility] SERVICES [address] [place] [address] documented in this encounter Visit Diagnoses Diagnosis [...] PM 20 mL/hr 20 mL/hr (PLASMA-LYTE A) WINDOW SHADE CUTTER 20 mL/hr, intravenous, Continuous, Starting on Tue04/18/18 at 1430, PACU & Post-Op heparin 10 Units/mL in NaCl 0.9% 500 mL flush Given 2:25 PM WINDOW SHADE CUTTER 250 mL solution miscellaneous, Once in surgery, OR use only, Starting on Tue04/18/18 at 0939, For 1 dose, Intra-Op, *Flush/Irrigation use only* insulin aspart U-100 Given 04/18/2018 9:29 AM WINDOW SHADE CUTTER 2 Units Left Upper Abdomen injection 0-8 [...] mg/mL in NaCl Given 04/18/2018 2:25 PM WINDOW SHADE CUTTER 134 mL 0.9% injection 300 mL, injection, Once in surgery, OR use only, Starting on Tue04/18/18 at 0939, For 1 dose, Intra-Op lidocaine-bupivacaine 1%-0.25% infiltration Given 04/18/2018 11:59 AM WINDOW SHADE CUTTER 16 mL injection 30 mL 30 mL, [...] 10 mg (ROXICODONE) Given 04/18/2018 5:17 PM WINDOW SHADE CUTTER 10 mg 10 mg, oral, Every 4 [...] Recently Administered Medications Times are shown in WINDOW SHADE CUTTER. Scheduled Medication Order 04/16/2018 04/17/2018 04/18/2018 acetaminophen [...] R.N.) 0-8 Units, subcutaneous, Every 2 hour ID N, high blood sugar, Nurse to determine [...]
--- OUTSIDE RECORDS SUMMARY | 2022-04-28 14:45 | XMS_ITS | Encounter Summary ---
:1950 Author Organization [facility] Address [address] [place] [address] Care Team Providers Name Role Phone Unavailable Primary Care Provider Unavailable Encounter Details Date Type Department Care Team Description 03/24/2018 Episode Changes Department of Family January Britt, Medicine, [facility], [address] [place] [address] Social History Tobacco Use Types [...] How often do you attend mormon or mu-ism services? 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 THREAD CUTTER documented as of this encounter Plan of Treatment Not on filedocumented as of this encounter Visit Diagnoses Not on filedocumented in this encounter Additional Health Concerns Assessment Noted Time PHQ-9 Depression Total Score: 3 01/03/2018 10:38 AM CD T documented as of this encounter
--- OUTSIDE RECORDS SUMMARY | 2022-04-28 14:45 | XMS_ITS | Encounter Summary ---
:1950 Author Organization [facility] Address [address] [place] [address] Care Team Providers Name Role Phone Unavailable Primary Care Provider Unavailable Encounter Details Date Type Department Care Team Description 03/09/2018 Orders Only Division of Vascular Stacy Correiaipheral Arterial and Endovascular S, M.S., R.N. Disease (HCC) Surgery in [address] (Primary Dx) [place], [place] [address] [address] [place], [place] [phone] (Work) [phone] Social History Tobacco Use Types Packs/Day Years [...] How often do you attend temple or baptism services? 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 eGFR-Black/ 54 (L) >=60 mL/min/BSA 03/15/2018 9:28 [facility] [place] AM CDT LABORATORIES - [facility] Comment: ----ADDITIONAL INFORMATION---- Estimated GFR calculated using the 2009 CKD_EPI creatinine equation. Specimen Anatomical Collection Method Collection Time Receive d Time (Source) Location / / Volume Laterality Blood (Blood, 03/15/2018 7:42 AM 03/15/20 18 8:04 Venous) CDT AM CDT Kemar MerchantS. LAB BLOOD ADD-ON Performing Organization Address City/State/ZIP Code Phon e Number [facility] LABORATORIES - [address] [place] [address] [facility] documented in this encounter Visit Diagnoses Diagnosis Peripheral Arterial Disease (HCC) - Prim dat Peripheral Arterial Disease (HCC) documented in this encounter Additional Health Concerns Assessment Noted Time PHQ-9 Depression Total Score: 3 01/03/2018 10:38 AM CD T documented as of this encounter
--- OUTSIDE RECORDS SUMMARY | 2022-04-28 14:45 | XMS_ITS | Encounter Summary ---
:1950 Author Organization [facility] Address [address] [place] [address] Care Team Providers Name Role Phone Unavailable Primary Care Provider Unavailable Encounter Details Date Type Department Care Team Description 03/20/2018 Clinical Communication Department of [facility], [place] [facility] in [place] [address] [place] [phone] Social History Tobacco Use Types Packs/Day Years [...] How often do you attend adventist or restorationism services? 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 Please advise. E CASE MANAGER documented in this encounter Plan of Treatment Not on filedocumented as of this encounter Visit Diagnoses Not on filedocumented in this encounter Additional Health Concerns Assessment Noted Time PHQ-9 Depression Total Score: 3 01/03/2018 10:38 AM CD T documented as of this encounter
--- OUTSIDE RECORDS SUMMARY | 2022-04-28 14:45 | XMS_ITS | Encounter Summary ---
:1950 Author Organization [facility] Address [address] [place] [address] Care Team Providers Name Role Phone Unavailable Primary Care Provider Unavailable Encounter Details Date Type Department Care Team Description 03/20/2018 Clinical Communication Department of [facility], [place] [facility], in [place] [address] [place] [phone] Social History Tobacco Use Types Packs/Day Years [...] often do you attend oriental orthodox or mandaeism services? 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
--- OUTSIDE RECORDS SUMMARY | 2022-04-28 14:45 | XMS_ITS | Encounter Summary ---
:1950 Author Organization [facility] Address [address] [place] [address] Care Team Providers Name Role Phone Unavailable Primary Care Provider Unavailable Reason for Visit Auth/Cert Specialty Diagnoses / Procedures Referred By Contact Refer red To Contact Diagnoses Peripheral Arterial Disease (HCC) Procedures OK REVASC OPN/PERC ILIAC W STENT OK REVASC ILIAC ARTY STNT ANGPLST OK ANGIOGRAPHY EXT UNILAT S&I OK US GUIDE VASC ACCESS IR ENDOVASCULAR ANGIOPLASTY STENT ILIAC LOWER EXTREMITY; right femoral access Referral ID Status Reason Start Date Expiration Date Visits Requ ested Visits Authorized [id number] 1 1 Encounter Details Date Type Department Care Team Description 04/18/2018 Hospital Encounter Outpatient Surgery [facility] Vel[facility] [place] [address] [facility] [address] [place] [phone] Social History Tobacco Use Types Packs/Day Years [...] How often do you attend zoroastrianism or christian services? 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 documented as of this encounter Last Filed Vital Signs Vital Sign Reading Time Taken Comments Blood Pressure 154/61 04/18/2018 7:05 PM EPITAXIAL REACTOR TECHNICIAN Pulse 78 04/18/2018 7:05 PM EPITAXIAL REACTOR TECHNICIAN Temperature 37 ??C (98.6 ??F) 04/18/2018 6:00 PM EPITAXIAL REACTOR TECHNICIAN Respiratory Rate 16 04/18/2018 7:05 PM EPITAXIAL REACTOR TECHNICIAN Oxygen Saturation 92% 04/18/2018 7:05 PM EPITAXIAL REACTOR TECHNICIAN Inhaled Oxygen Concentration - - Weight 79.3 kg (174 lb 13.2 oz) 04/18/2018 9:19 AM EPITAXIAL REACTOR TECHNICIAN Height 173.4 cm (5' 8.27) 04/18/2018 9:19 AM EPITAXIAL REACTOR TECHNICIAN Body Mass Index 26.37 04/18/2018 9:19 AM EPITAXIAL REACTOR TECHNICIAN documented in this encounter Discharge Instructions AttachmentsThe following attachments cannot be sent through Care Everywhere.Care Following Coronary Angiogram/Angioplasty/Stent Placement ??? Femoral (Leg) (Kuwaiti)documented in this encounter Medications at Time of [...] of iron total) by mouth daily. lancets [facility] [place] Dispense item 0 08/23/2014 9 covered by [...] coordinated with Dr. Velásquez in 3-4 months. AXIAL REACTOR TECHNICIAN documented in this encounter H&P Notes Dharmesh [...] outpatient exam Assessment and Plan: Plan Unchanged AXIAL REACTOR TECHNICIAN documented in this encounter OR Notes Op [...] came up and over with a 6 Amharic 55 cm Ang sheath. The external iliac [...] Implant Name Type Inv. Item Serial No. Cephalometric Analyst Lot No. LRB No. Used Action STNT INNOVA OTW [id number] - [id number] Vascular Stent STNT INNOVA OTW [id number] [employer] [id number] Left 1 Implanted Shonda ReneeSFei AXIAL REACTOR TECHNICIAN Brief Op Note - Dharmesh Castellanos M.B.B.SFei - 04/18/2018 11:58 AM EPITAXIAL REACTOR TECHNICIAN BRIEF OP NOTE Procedure(s): 1. Ultrasound-guided access [...] Implant Name Type Inv. Item Serial No. Cephalometric Analyst Lot No. LRB No. Used Action STNT INNOVA OTW [id number] - [id number] Vascular Stent STNT INNOVA OTW [id number] [employer] [id number] Left 1 Implanted Amy Hale AXIAL REACTOR TECHNICIAN documented in this encounter Plan of Treatment Not on filedocumented as of this encounter Procedures Procedure Name Priority Date/Time Associated Comments Diagnosis ADULT OXYGEN Routine 04/18/2018 4:43 THERAPY PM EPITAXIAL REACTOR TECHNICIAN GLUCOSE POCT, B Routine 04/18/2018 3:09 Results f or this PM EPITAXIAL REACTOR TECHNICIAN procedure are i n the results section. ADULT OXYGEN Routine 04/18/2018 3:05 THERAPY PM EPITAXIAL REACTOR TECHNICIAN IR ENDOVASCULAR RAD - Routine 04/18/2018 2:59 Peripheral Results for this ANGIOPLASTY STENT (most inpatients PM EPITAXIAL REACTOR TECHNICIAN Arterial Disease pr ocedure are in ILIAC LOWER and all (HCC) the results EXTREMITY outpatients) section. ACT, POCT, B Routine 04/18/2018 1:52 Results for this PM EPITAXIAL REACTOR TECHNICIAN procedure are i n the results section. ACT, POCT, B Routine 04/18/2018 1:22 Results for this PM EPITAXIAL REACTOR TECHNICIAN procedure are i n the results section. ACT, POCT, B Routine 04/18/2018 12:53 Results for this PM EPITAXIAL REACTOR TECHNICIAN procedure are i n the results section. GLUCOSE POCT, B Routine 04/18/2018 12:51 Results for this PM EPITAXIAL REACTOR TECHNICIAN procedure are i n the results section. ACT, POCT, B Routine 04/18/2018 12:20 Results for this PM EPITAXIAL REACTOR TECHNICIAN procedure are i n the results section. GLUCOSE POCT, B Routine 04/18/2018 9:07 Results f or this AM EPITAXIAL REACTOR TECHNICIAN procedure are i n the results section. documented in this encounter Results Glucose, POCT (04/18/2018 3:09 PM EPITAXIAL REACTOR TECHNICIAN) athologist Signature Glucose, POCT, 102 70 - 140 04/18/2018 POC [facility] B mg/dL 3:14 PM EPITAXIAL REACTOR TECHNICIAN SERVICES Specimen Anatomical Collection Method Collection Time Receive d Time (Source) Location / / Volume Laterality Blood 04/18/2018 3:09 PM 8 3:14 EPITAXIAL REACTOR TECHNICIAN PM EPITAXIAL REACTOR TECHNICIAN Unknown Provider LAB POCT ORDERABLES-MANUAL Performing Organization Address [facility] Phon e Number POC [facility] SERVICES [address] [place] [address] IR ENDOVASCULAR ANGIOPLASTY STENT ILIAC LOWER EXTREMITY (04/18/2018 2:59 PM EPITAXIAL REACTOR TECHNICIAN) Anatomical Region Laterality Modality Lower Extremity, Vascular Interventional RST LOS N/A X-Ray Angiography Specimen (Source) Anatomical Location Collection Method / Collectio n Time Received Time / Laterality Volume Narrative 04/18/2018 7:59 PM EPITAXIAL REACTOR TECHNICIAN This result has an attachment that is no t available. Performed by surgeon - see Op Note for r esult. Kemar Reyes IMG IR PROCEDURES (ABNORMAL) ACT (Activated Clotting Time), POCT (04/18/2018 1:52 PM EPITAXIAL REACTOR TECHNICIAN) athologist Signature Activated 218 (H) 84 - 139 04/18/[address] Clotting Time, sec 1:57 PM EPITAXIAL REACTOR TECHNICIAN [facility] POCT INPATIENT LABS Specimen Anatomical Collection Method Collection Time Receive d Time (Source) Location / / Volume Laterality Blood 04/18/2018 1:52 PM 8 1:57 EPITAXIAL REACTOR TECHNICIAN PM EPITAXIAL REACTOR TECHNICIAN Unknown Provider LAB POCT ORDERABLES - DEVICE Performing Organization Address [facility] Phon e Number POC RST [facility] INPATIENT LABS [address] [facility] [address] [address] (ABNORMAL) ACT (Activated Clotting Time), POCT (04/18/2018 1:22 PM EPITAXIAL REACTOR TECHNICIAN) athologist Signature Activated 223 (H) 84 - 139 04/18/[address] Clotting Time, sec 1:27 PM EPITAXIAL REACTOR TECHNICIAN [facility] POCT INPATIENT LABS Specimen Anatomical Collection Method Collection Time Receive d Time (Source) Location / / Volume Laterality Blood 04/18/2018 1:22 PM 8 1:28 EPITAXIAL REACTOR TECHNICIAN PM EPITAXIAL REACTOR TECHNICIAN Unknown Provider LAB POCT ORDERABLES - DEVICE Performing Organization Address [facility] Phon e Number POC RST [facility] INPATIENT LABS [address] [facility] [address] [address] (ABNORMAL) ACT (Activated Clotting Time), POCT (04/18/2018 12:53 PM EPITAXIAL REACTOR TECHNICIAN) P athologist Signature Activated 213 (H) 84 - 139 04/18/[address] Clotting Time, sec 12:57 PM EPITAXIAL REACTOR TECHNICIAN [facility] POCT INPATIENT LABS Specimen Anatomical Collection Method Collection Time Receive d Time (Source) Location / / Volume Laterality Blood 04/18/2018 12:53 04/18/2018 PM EPITAXIAL REACTOR TECHNICIAN 12:57 PM EPITAXIAL REACTOR TECHNICIAN Unknown Provider LAB POCT ORDERABLES - DEVICE Performing Organization Address [facility] Phon e Number POC RST [facility] INPATIENT LABS [address] [facility] [address] [address] Glucose, POCT (04/18/2018 12:51 PM EPITAXIAL REACTOR TECHNICIAN) P athologist Signature Glucose, POCT, 124 70 - 140 04/18/[address] B mg/dL 12:52 PM EPITAXIAL REACTOR TECHNICIAN [facility] INPATIENT LABS Site ARTLINE 04/18/[address] 12:52 PM EPITAXIAL REACTOR TECHNICIAN [facility] INPATIENT LABS Specimen Anatomical Collection Method Collection Time Receive d Time (Source) Location / / Volume Laterality Blood 04/18/2018 12:51 04/18/2018 PM EPITAXIAL REACTOR TECHNICIAN 12:53 PM EPITAXIAL REACTOR TECHNICIAN Unknown Provider LAB POCT ORDERABLES-MANUAL Performing Organization Address [facility] Phon e Number POC RST [facility] INPATIENT LABS [address] [facility] [address] [address] (ABNORMAL) ACT (Activated Clotting Time), POCT (04/18/2018 12:20 PM EPITAXIAL REACTOR TECHNICIAN) P athologist Signature Activated 228 (H) 84 - 139 04/18/[address] Clotting Time, sec 12:25 PM EPITAXIAL REACTOR TECHNICIAN [facility] POCT INPATIENT LABS Specimen Anatomical Collection Method Collection Time Receive d Time (Source) Location / / Volume Laterality Blood 04/18/2018 12:20 04/18/2018 PM EPITAXIAL REACTOR TECHNICIAN 12:26 PM EPITAXIAL REACTOR TECHNICIAN Unknown Provider LAB POCT ORDERABLES - DEVICE Performing Organization Address [facility] Phon e Number POC RST [facility] INPATIENT LABS 200 [facility] [place] [address] (ABNORMAL) Glucose, POCT (04/18/2018 9:07 AM EPITAXIAL REACTOR TECHNICIAN) Analysis Performed At Patho logist Time Signature Glucose, POCT, 164 (H) 70 - 140 04/18/2018 POC [facility] B mg/dL 9:11 AM EPITAXIAL REACTOR TECHNICIAN SERVICES Site Capillary 04/18/2018 POC [facility] 9:11 AM EPITAXIAL REACTOR TECHNICIAN SERVICES Last Intake NPO 04/18/2018 POC [facility] 9:11 AM EPITAXIAL REACTOR TECHNICIAN SERVICES Specimen Anatomical Collection Method Collection Time Receive d Time (Source) Location / / Volume Laterality Blood 04/18/2018 9:07 AM 8 9:11 EPITAXIAL REACTOR TECHNICIAN AM EPITAXIAL REACTOR TECHNICIAN Unknown Provider LAB POCT ORDERABLES-MANUAL Performing Organization Address City/State/ZIP Code Phon e Number POC [facility] [address] [place] [address] documented in this encounter Visit Diagnoses Diagnosis [...] PM 20 mL/hr 20 mL/hr (PLASMA-LYTE A) EPITAXIAL REACTOR TECHNICIAN 20 mL/hr, intravenous, Continuous, Starting on Tue04/18/18 at 1430, PACU & Post-Op insulin aspart U-100 Given 04/18/2018 9:29 AM EPITAXIAL REACTOR TECHNICIAN 2 Units Left Upper Abdomen injection 0-8 [...] 10 mg (ROXICODONE) Given 04/18/2018 5:17 PM EPITAXIAL REACTOR TECHNICIAN 10 mg 10 mg, oral, Every 4 [...] Recently Administered Medications Times are shown in EPITAXIAL REACTOR TECHNICIAN. Scheduled Medication Order 04/16/2018 04/17/2018 04/18/2018 acetaminophen [...] R.N.) 0-8 Units, subcutaneous, Every 2 hour OK [...]
--- OUTSIDE RECORDS SUMMARY | 2022-04-28 14:45 | XMS_ITS | Encounter Summary ---
:1950 Author Organization [facility] Address [address] [place] [address] Care Team Providers Name Role Phone Unavailable Primary Care Provider Unavailable Encounter Details Date Type Department Care Team Description 03/15/2018 Hospital Encounter Department of Kemar Velásquez Periphe ral Arterial Laboratory Medicine M.B.B.S. Disease (HCC) and Pathology, [address] [place] [address], in [place], [place] [address] [place] [address] [place], [place] (Work) [address] [phone] Social History Tobacco Use Types Packs/Day Years [...] How often do you attend islam or church services? 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 lancets [facility] Dispense item 0 08/23/2014 9 [...] with Estimated GFR (03/15/2018 7:42 AM CDT) [facility] Method Time Signature Creatinine 1.54 (H) 0.74 - 03/15/2018 [facility] 1.35 9:28 AM CDT LABORATORIES - mg/dL [facility] eGFR-Non 46 (L) >=60 03/15/2018 [facility] Black/ mL/min/BS 9:28 AM CDT LABORATORIES - Egyptian A [facility] Comment: ----ADDITIONAL INFORMATION---- Estimated GFR calculated using the 2009 CKD_EPI creatinine equation. eGFR-Black/ 54 (L) >=60 mL/min/BSA 03/15/2018 9:28 [facility] Egyptian AM CDT LABORATORIES - [facility] Comment: ----ADDITIONAL INFORMATION---- Estimated GFR calculated using the 2009 CKD_EPI creatinine equation. Specimen Anatomical Collection Method Collection Time Receive d Time (Source) Location / / Volume Laterality Blood (Blood, 03/15/2018 7:42 AM 03/15/20 18 8:04 Venous) CDT AM CDT Kemar Reyes LAB BLOOD ADD-ON Performing Organization Address City/State/ZIP Code Phon e Number [facility] LABORATORIES - [address] [place] [address] [facility] documented in this encounter Visit Diagnoses Diagnosis Peripheral Arterial Disease (HCC) documented in this encounter Additional Health Concerns Assessment Noted Time PHQ-9 Depression Total Score: 3 01/03/2018 10:38 AM CD T documented as of this encounter
--- OUTSIDE RECORDS SUMMARY | 2022-04-28 14:45 | XMS_ITS | Encounter Summary ---
:1950 Author Organization [facility] Address [address] [place] [address] Care Team Providers Name Role Phone Unavailable [...] How often do you attend yarsani or restorationist services? 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 documented in this encounter Results VASCULAR SURGERY IMAGE EXAM (04/18/2018 10:10 AM VISCOSE CELLAR WORKER) Specimen (Source) Anatomical Collection Method Collection Time Re ceived Time Location / / Volume Laterality 04/18/2018 10:09 AM VISCOSE CELLAR WORKER Narrative IIMS - 04/18/2018 12:36 PM VISCOSE CELLAR WORKER This order has been created and auto-finalized to support the import of images acquired without order. The clini ammy documentation to support these images can be found on the encounter dioni t produced images. Provider Not In System IMG NON RAD IMAGING PROCEDUR ES Performing Organization Address City/State/ZIP Code Phon e Number IIMO IIMO NA documented in this encounter Visit Diagnoses Not on filedocumented in this encounter Additional Health Concerns Assessment Noted Time PHQ-9 Depression Total Score: 3 01/03/2018 10:38 AM CD T documented as of this encounter
--- OUTSIDE RECORDS SUMMARY | 2022-04-28 14:45 | XMS_ITS | Encounter Summary ---
:1950 Author Organization [facility] Address [address] [place] [address] Care Team Providers Name Role Phone Unavailable Primary Care Provider Unavailable Reason for Visit Auth/Cert Specialty Diagnoses / Procedures Referred By Contact Refer red To Contact Diagnoses Peripheral Arterial Disease (HCC) Procedures IL REVASC OPN/PERC ILIAC W STENT IL REVASC ILIAC ARTY STNT ANGPLST IL ANGIOGRAPHY EXT UNILAT S&I IL US GUIDE VASC ACCESS IR ENDOVASCULAR ANGIOPLASTY STENT ILIAC LOWER EXTREMITY; right femoral access Referral ID Status Reason Start Date Expiration Date Visits Requ ested Visits Authorized [id number] 1 1 Encounter Details Date Type Department Care Team Description 04/18/2018 Anesthesia Event RST ROMB FRAN OR Lawrence Allen, [address] [facility] [address] [address] [facility] [phone] [place] [phone] (Wo rk) Anesthesia Record Procedure Summary Procedure Name Responsible Anesthesia Start Anesthesia Stop Anesthesiologist Time Time 1. Ultrasound-guided Lawrence lAlen M.D. 04/18/18 1127 1506 access to bilateral [...] h andoff to the receiving staff during [facility] we 1. Identified the patient 2. Ident [...] Eric J, APRN, Catheter Size: 20 G; CORRUGATOR MACHINE OPERATOR Orientation: Right; Location: Antecubital; Site Prep: Chlorhexidine (Preferred); Removal Date: 04/18/18; Removal Time: 1157 (RETIRED) Incision 04/18/18; 1139; Groin; 04/18/18 1139 by 02/03 1418 by Bilateral; HAO PRM WNEmi Pace, [facility] linmakayla-Backgroun NONADH 2X3 (x2); 02/03/21 Samia Carvajal (Removed by background Automated Batch Job completion utility); 1418 (Removed by background completion utility) Peripheral IV Placement Date: 04/18/18; 04/18/18 1156 by 04/18 1958 by Placement Time: 1156; Lawrence Sanford APRN, Hill, Kelsie J, R.N. Catheter Size: 20 G; CORRUGATOR MACHINE OPERATOR Orientation: Right; Location: Hand; Removal Date: 04/18/18; [...] How often do you attend moravian or temple services? Never 03/25/2021 Do you [...] at Date Recorded Male 03/24/2021 8:13 PM SPLITTER OPERATOR documented as of this encounter OR Notes Anesthesia Postprocedure Evaluation - Dick Robbins M.D. - 04/18/2018 3:52 PM CST Patient: Onesimo Walton Procedure Summary Date: 04/18/18 Room / Location: [address] / [facility] in [place], [place] Anesthesia Start: 1127 Anesthesia Stop: 1506 [...] Post Op nausea/vomiting: none Hydration status: euvolemic TTER OPERATOR Anesthesia Preprocedure Evaluation - Lawrence Allen M.D. [...] patient / legal guardian, or through an foreign language interpreter; patient evaluated and approved for anesthesia / sedation. Use of blood products discussed with patient who consented to blood products. TTER OPERATOR documented in this encounter Plan of Treatment Not on filedocumented as of this encounter Visit Diagnoses Not on filedocumented in this encounter Administered Medications Inactive Administered Medications - up to 3 most recent administrations Medication Order MAR Action Action Date Dose Rate Site ceFAZolin injection 2,000 mg Given 04/18/2018 11:58 AM SPLITTER OPERATOR 1 g (ANCEF) 2,000 mg (rounded from [...] Indications: Prophylaxis, surgical Given 04/18/2018 11:50 AM SPLITTER OPERATOR 2 g electrolyte-A solution (PLASMA-LYTE A) New Bag 04/18/2018 2:20 PM SPLITTER OPERATOR intravenous, Continuous Infusion: Per Instructions PRN, Starting on Tue04/18/18 at 1130, Anesthesia Intra-op New Bag 04/18/2018 11:30 AM SPLITTER OPERATOR fentaNYL injection (SUBLIMAZE) Given 04/18/2018 12:48 PM SPLITTER OPERATOR 25 mcg intravenous, As needed, severe pain or score 7-10 of 10, Starting on Tue04/18/18 at 1141, Anesthesia Intra-op Given 04/18/2018 11:56 AM SPLITTER OPERATOR 25 mcg Given 04/18/2018 11:41 AM SPLITTER OPERATOR 50 mcg heparin (porcine) 1,000 unit/mL Given 04/18/2018 12:57 PM SPLITTER OPERATOR 2, 000 Units injection As needed, Starting on Tue04/18/18 at 1207, Anesthesia Intra-op Given 04/18/2018 12:07 PM SPLITTER OPERATOR 5,000 Units lactated ringers New Bag 04/18/2018 2:20 PM SPLITTER OPERATOR intravenous, Continuous Infusion: Per Instructions PRN, Starting on Tue04/18/18 at 1130, Anesthesia Intra-op lidocaine (PF) (cardiac) injection Given 04/18/2018 11:33 AM SPLITTER OPERATOR 40 mg intravenous, As needed, Starting on Tue04/18/18 at 1133, Anesthesia Intra-op midazolam (PF) injection (VERSED) Given 04/18/2018 11:56 AM SPLITTER OPERATOR 1 mg As needed, Starting on Tue04/18/18 at 1140, Anesthesia Intra-op Given 04/18/2018 11:40 AM SPLITTER OPERATOR 1 mg ondansetron (PF) injection (ZOFRAN) Given 04/18/2018 2:18 PM SPLITTER OPERATOR 4 mg intravenous, As needed, nausea, vomiting, Starting on Tue04/18/18 at 1418, Anesthesia Intra-op phenylephrine injection Given 04/18/2018 2:20 PM SPLITTER OPERATOR 200 mcg As needed, Starting on Tue04/18/18 at 1156, Anesthesia Intra-op Given 04/18/2018 1:25 PM SPLITTER OPERATOR 200 mcg Given 04/18/2018 12:58 PM SPLITTER OPERATOR 200 mcg propofol 10 mg/mL infusion Rate/Dose 04/18/2018 10 mcg/kg/min 4.76 m L/hr (DIPRIVAN) Change 12:03 PM SPLITTER OPERATOR intravenous, Continuous Infusion: Per Instructions PRN, Starting on Tue04/18/18 at 1135, Anesthesia Intra-op Rate/Dose Change 04/18/2018 11:57 AM SPLITTER OPERATOR 25 mcg/kg/min 11.9 mL/hr New Bag 04/18/2018 11:35 AM SPLITTER OPERATOR 50 mcg/kg/min 23.8 mL/hr propofol injection (DIPRIVAN) Given 04/18/2018 11:56 AM SPLITTER OPERATOR 20 mg intravenous, As needed, Starting on Tue04/18/18 at 1156, Anesthesia Intra-op protamine injection Given 04/18/2018 2:16 PM SPLITTER OPERATOR 20 mg As needed, Starting on Tue04/18/18 at 1411, Anesthesia Intra-op Given 04/18/2018 2:14 PM SPLITTER OPERATOR 15 mg Given 04/18/2018 2:11 PM SPLITTER OPERATOR 5 mg documented in this encounter Additional Health Concerns Assessment Noted Time PHQ-9 Depression Total Score: 3 01/03/2018 10:38 AM CD T documented as of this encounter
--- OUTSIDE RECORDS SUMMARY | 2022-04-28 14:46 | XMS_ITS | Encounter Summary ---
:1950 Author Organization [facility] Address [address] [place] [address] Care Team Providers Name Role Phone Unavailable Primary Care Provider Unavailable Encounter Details Date Type Department Care Team Description 02/17/2018 Orders Only Department of Neurology in Yessy Cohen M.D., [place], [place] [facility] [address] [place] [address] [place], [place] [phone] (Wo rk) Social History Tobacco Use [...] How often do you attend taoism or scientology services? 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
--- OUTSIDE RECORDS SUMMARY | 2022-04-28 14:46 | XMS_ITS | Encounter Summary ---
:1950 Author Organization [facility] Address [address] [place] [address] Care Team Providers Name Role Phone Unavailable Primary Care Provider Unavailable Encounter Details Date Type Department Care Team Description 11/11/2017 Abstract [facility] ANGIE Pinon ea Provider, Historical [address] [place] [address] Social History Tobacco Use [...] How often do you attend restorationism or lutheran services? 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
--- OUTSIDE RECORDS SUMMARY | 2022-04-28 14:46 | XMS_ITS | Encounter Summary ---
:1950 Author Organization [facility] Address [address] [place] [address] Care Team Providers Name Role Phone Unavailable Primary Care Provider Unavailable Reason for Visit Reason Comments Med Refill Encounter Details Date Type Department Care Team Description 12/14/2017 Refill Department of Family Medicine, Bambi Adler Med Refill [facility], in Renee Phillips M.D. [place] [address] [place] [address] [place] [address] [phone] Social History Tobacco Use Types Packs/Day Years [...] How often do you attend rastafari or zoroastrian services? 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
--- OUTSIDE RECORDS SUMMARY | 2022-04-28 14:46 | XMS_ITS | Encounter Summary ---
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 lancets [facility] [place] Dispense [...] the results DOPPLER outpatients) Atherosclerosis Of section. 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
--- OUTSIDE RECORDS SUMMARY | 2022-04-28 14:46 | XMS_ITS | Encounter Summary ---
:1950 Author Organization [facility] Address [address] [place] [address] Care Team Providers Name Role Phone Unavailable Primary Care Provider Unavailable Reason for Referral Outpatient (Routine) - Closed Specialty Diagnoses / Procedures Referred By Contact Refer red To Contact Neurology Diagnoses Restless Leg Syndrome SHIVA Catalan [facility] Demetri Duran M.D. [address], [place] [address] Referral ID Status Reason Start Date Expiration Date Visits V isits Requested Authorized [id number] Closed Specialty 01/30/2018 01/30/2019 1 1 Services Required Encounter Details Date Type Department Care Team Description 01/30/2018 Orders Only Department of [facility] Ruthie Res tless Leg Syndrome Medicine, Renee Antonio, (Primary Dx) Clinic, in [place] [address] [place] [address] [phone] Social History Tobacco Use Types Packs/Day Years [...] How often do you attend caodaism or congregational services? 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
--- OUTSIDE RECORDS SUMMARY | 2022-04-28 14:46 | XMS_ITS | Encounter Summary ---
:1950 Author Organization [facility] Address [address] [place] [address] Care Team Providers Name Role Phone Unavailable Primary Care Provider Unavailable Reason for Visit Reason Comments Follow-up 04/30/17 Dr. Dino ashley Outpatient (Routine) - Closed Specialty Diagnoses / Referred By Contact Referred To Contact Procedures Cardiovascular Diseases / Diagnoses Syncope And [facility] S[facility]ope [facility] Cardiovascular Disease Renee escobedo M.D. [address] [place] [address] Referral ID Status Reason Start Date Expiration Date Visits Requ ested Visits Authorized [id number] Closed 10/27/2017 10/27/2018 1 1 Encounter Details Date Type Department Care Team Description 11/09/2017 Comprehensive Visit Department of Yessy Dumont Stress Test (Primary Dx); Cardiovascular Delmy Blake Syncope And Near Syncope; Diseases in [facility] [address] Pain Chest Atypical; [facility] Diabetes Mellitus Type 2 With Other Circ ulatory Complication Hyperglycemic (HCC); [address] [facility], Peripheral Arterial Disease (HCC) [facility] [address] [phone] Social History Tobacco Use Types Packs/Day Years [...] How often do you attend anabaptism or zoroastrianism services? 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 male who is referred to [facility] Cardiovascular Medicine for further cardiovascular evaluation. I reviewed to the recent clinical encounter notes from October 2017 as well as the prior Vascular Medicine consultation and pre anesthetic evaluation in 2017 from [facility]. Patient previously noted orthostatic lightheadedness as well [...] He will be following with Vascular at [facility] later this year; I did not arrange [...]
--- OUTSIDE RECORDS SUMMARY | 2022-04-28 14:46 | XMS_ITS | Encounter Summary ---
:1950 Author Organization [facility] Address [address] [place] [address] Care Team Providers Name Role Phone Unavailable Primary Care Provider Unavailable Reason for Visit Reason Comments Consult Ref. - restless legs Appointment Request (Routine) - Closed Specialty Diagnoses / Procedures Referred By Contact Refer red To Contact Neurology Referral ID Status Reason Start Date Expiration Date Visits Requ ested Visits Authorized [id number] Closed 12/30/2017 12/30/2018 1 1 Encounter Details Date Type Department Care Team Description 02/16/2018 Comprehensive Visit Department of Yessy Cohen s Leg Neurology in [place] Gomes, Syndrome [place], [place] [facility] [address] [address] [place], [place] [phone] [address] Social History Tobacco Use Types Packs/Day [...] How often do you attend uatsdin or religion services? 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 HE HAS CHRONIC PAIN DUE TO NEUROPATHY [...] popliteal and /or tibial artery angioplasty/stent Notes: [id number] ??? ENDOVASCULAR ILIAC AND/OR FEMORAL AND/OR POPLITEAL AND /OR TIBIAL ARTERY ANGIOPLASTY/STENT Right08/31/2017 Endovascular iliac and/or femoral and/or popliteal and /or tibial artery angioplasty/stent Notes: [id number] ??? FEMORAL ARTERY STENT Right 08/31/2017 ??? FEMORAL ENDARTERECTOMY, PATCH ANGIOPLASTY/INTERPOSITION GRAFT WITH/WITHOUT PROFUNDOPLASTY Left 04/04/2017 Femoral endarterectomy, patch angioplasty/interposition graft with/without profundoplasty Notes: [id number] ??? NM SESTAMIBI W/DOBUTAMINE 1 DA postive [...] Rash itchy ??? Pregabalin Anaphylaxis swell ??? Ytqgnom-Mpr-Agw Reductase Inhibitors Myalgia Family History Problem Relation [...] is retired. 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 OBJECTIVE Vitals: 02/16/18 1220 BP: 118/75 Pulse: 72 PHYSICAL EXAM COGNITION: Alert and oriented x 4. CRANIAL NERVES: tubular riveter II-XII intact and symmetric. MOTOR: Full strength [...]
--- OUTSIDE RECORDS SUMMARY | 2022-04-28 14:46 | XMS_ITS | Encounter Summary ---
:1950 Author Organization [facility] Address [address] [place] [address] Care Team Providers Name Role Phone Elsewhere, Pcp Primary Care Provider Unavailable Encounter Details Date Type Department Care Team Description 12/19/2017 Orders Only [facility] betelizabeth Mellitus Type Medicine, [place] rodriguez, 2 (HCC) (Primary Dx) Clinic, in [place] [address] [place] [phone] Social History Tobacco Use Types Packs/Day Years [...] How often do you attend yazdanism or hinduism services? 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 ?? Diagnosis should be confirmed by repeat testing. ??In diabet ic patients, HbA1c goals should be discussed with healthcar e provider. Specimen Anatomical Collection Method Collection Time Receive d Time (Source) Location / / Volume Laterality Blood (Blood, 04/21/2018 1:54 PM 04/21/20 18 3:34 Venous) UNDERCOLLAR MAKER PM UNDERCOLLAR MAKER Renee Catalan M.D. LAB BLOOD ADD-ON Performing Organization Address City/State/ZIP Code Phon e Number [facility] [address] [place] [address] LAB documented in this encounter Visit Diagnoses Diagnosis Diabetes Mellitus Type 2 (HCC) - Primary documented in this encounter Additional Health Concerns Infection Onset Date Last Indicated Resolved Time COVID19 Pending 05/08/2020 05/08/2020 05/08/2020 2:44 PM UNDERCOLLAR MAKER Assessment Noted Time PHQ-9 Depression Total Score: 7 07/22/2017 11:14 AM CS T documented as of this encounter Care Teams Bilingual Trainer Relationship Specialty Start Date End Date Elsewhere, Pcp PCP - General Family Medicine 01/29/20 documented as of this encounter
--- OUTSIDE RECORDS SUMMARY | 2022-04-28 14:46 | XMS_ITS | Encounter Summary ---
:1950 Author Organization [facility] Address [address] [place] [address] Care Team Providers Name Role Phone Unavailable Primary Care Provider Unavailable Reason for Visit Outpatient (Routine) - Closed Specialty Diagnoses / Procedures Referred By Contact Refer red To Contact Vascular Medicine Kemar Velásquez, M.B.B. [facility] [address] [place] [phone] Referral ID Status Reason Start Date Expiration Date Visits Requ ested Visits Authorized [id number] Closed 10/07/2017 10/07/2018 1 1 Encounter Details Date Type Department Care Team Description 01/13/2018 Office Visit Division of Vascular Kemar Velásquez Periph eral Arterial Disease (HCC) (Primary Dx); and Endovascular [facility] Atherosclerosis Of [place] Arteries Of Le ft Leg With Ulceration Of Unspecified Site (HCC) Surgery in [place] [address] [place], [place] [address] [place] [address] [place], [place] [phone] (Work) [phone] Social History Tobacco Use Types Packs/Day Years [...] How often do you attend religious or sabianist services? 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
--- OUTSIDE RECORDS SUMMARY | 2022-04-28 14:46 | XMS_ITS | Encounter Summary ---
:1950 Author Organization [facility] Address [address] [place] [address] Care Team Providers Name Role Phone Unavailable Primary Care Provider Unavailable Reason for Visit Reason Onset Date Comments Care Coordination - Referral 12/01/2017 Encounter Details Date Type Department Care Team Description 12/01/2017 Clinical Communication Department of January Britt re Coordination - Family Medicine, R, R.N. Referral [facility], in [address] [place] [phone] Social History Tobacco Use Types Packs/Day Years [...] How often do you attend temple or moravian services? 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 - 01/03/2018 1:42 PM CDT [...] out or maybe when she is in [place] next time she can show me? Telephone Encounter - January Britt R.N. - 12/13/2017 10:[address] Lacy, Can you please send this patient the letter regarding care coordination. You can use .[email or web address] Please let me know if you have any questions. I will reach out to the patient after the letteris sent. Thanks, January Britt RN Medical Social Consultant Telephone Encounter - January Britt R.N. - 12/02/2017 11:04 AM CDT Noted. Will contact patient in one to two weeks for care coordination screening. Thanks, January Britt RN Medical Social Consultant Telephone Encounter - Samia Nunes L.P.N. - [...] recommend, A1C< 8? Thanks, January Britt RN Medical Social Consultant documented in this encounter Plan of Treatment Not on filedocumented as of this encounter Visit Diagnoses Not on filedocumented in this encounter Additional Health Concerns Assessment Noted Time PHQ-9 Depression Total Score: 7 07/22/2017 11:14 AM CS T documented as of this encounter
--- OUTSIDE RECORDS SUMMARY | 2022-04-28 14:46 | XMS_ITS | Encounter Summary ---
:1950 Author Organization [facility] Address [address] [place] [address] Care Team Providers Name Role Phone Unavailable Primary Care Provider Unavailable Reason for Visit Reason Comments Med Refill Encounter Details Date Type Department Care Team Description 12/26/2017 Refill Department of Family Medicine, Bambi Adler Med Refill [facility], in Renee Phillips M.D. [place] [address] [place] [address] [place] [address] [phone] Social History Tobacco Use Types Packs/Day Years [...] How often do you attend moravian or jain services? 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
--- OUTSIDE RECORDS SUMMARY | 2022-04-28 14:46 | XMS_ITS | Encounter Summary ---
:1950 Author Organization [facility] Address [address] [place] [address] Care Team Providers Name Role Phone Unavailable Primary Care Provider Unavailable Reason for Visit Reason Comments Med Refill Encounter Details Date Type Department Care Team Description 11/24/2017 Refill Department of Family Medicine, Bambi Adler Med Refill [facility], in Renee Phillips M.D. [place] [address] [place] [address] [place] [address] [phone] Social History Tobacco Use Types Packs/Day Years [...] How often do you attend orthodoxy or yazidi services? 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
--- OUTSIDE RECORDS SUMMARY | 2022-04-28 14:46 | XMS_ITS | Encounter Summary ---
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 lancets [facility] [place]pense [...] athologist Signature Ferritin, S 44 mcg/L 02/16/2018 [facility] 4:51 PM CDT [facility] Comment: Biotin has been identified by the manufa cturer as a potential interfering substance. ??Higher concentr ations of biotin may be found in multivitamins, hair/nail supple ments, and workout supplements. ??If the result does not [facility] clinical observations, repeat testing after patient [...] Organization Address City/State/ZIP Code Phon e Number [facility] [address] [place] [address] LAB documented in this encounter Visit Diagnoses Diagnosis Restless Leg Syndrome documented in this encounter Additional Health Concerns Assessment Noted Time PHQ-9 Depression Total Score: 3 01/03/2018 10:38 AM CD T documented as of this encounter
--- OUTSIDE RECORDS SUMMARY | 2022-04-28 14:46 | XMS_ITS | Encounter Summary ---
:1950 Author Organization [facility] Address [address] [place] [address] Care Team Providers Name Role Phone Unavailable Primary Care Provider Unavailable Encounter Details Date Type Department Care Team Description 01/25/2018 Orders Only Department of [facility] tatiannaCheryl velasquez, Medicine, [facility] in [facility] ariel [address] [place], [place] [facility] [place] [phone] (Wo rk) Social History Tobacco Use Types [...] How often do you attend anabaptist or sabianism services? 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
--- OUTSIDE RECORDS SUMMARY | 2022-04-28 14:46 | XMS_ITS | Encounter Summary ---
:1950 Author Organization [facility] Address [address] [place] [address] Care Team Providers Name Role Phone Unavailable Primary Care Provider Unavailable Reason for Visit Reason Comments Med Refill Encounter Details Date Type Department Care Team Description 11/07/2017 Refill Department of Family Medicine, Bambi Adler Med Refill [facility], in Renee Phillips M.D. [place] [address] [place] [address] [place] [address] [phone] Social History Tobacco Use Types Packs/Day Years [...] How often do you attend methodist or baptism services? 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
--- OUTSIDE RECORDS SUMMARY | 2022-04-28 14:46 | XMS_ITS | Encounter Summary ---
:1950 Author Organization [facility] Address [address] [place] [address] Care Team Providers Name Role Phone Unavailable Primary Care Provider Unavailable Encounter Details Date Type Department Care Team Description 12/06/2017 Hospital Encounter Department of [facility] es Mellitus Laboratory Medicine Renee beth, Type 2 (HCC) in [place] [address] [phone] Social History Tobacco Use Types Packs/Day Years [...] How often do you attend advent or baptism services? 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 lancets [facility] [...] A1c, 7.8 (H) 4.2 - 5.6 12/06/2017 [facility] B % 12:10 PM CDT [facility] Comment: Hemoglobin A1c values greater [...] Organization Address City/State/ZIP Code Phon e Number [facility] [address] [place] [address] LAB documented in this encounter Visit Diagnoses Diagnosis Diabetes Mellitus Type 2 (HCC) documented in this encounter Additional Health Concerns Assessment Noted Time PHQ-9 Depression Total Score: 7 07/22/2017 11:14 AM CS T documented as of this encounter
--- OUTSIDE RECORDS SUMMARY | 2022-04-28 14:46 | XMS_ITS | Encounter Summary ---
:1950 Author Organization [facility] Address [address] [place] [address] Care Team Providers Name Role Phone Unavailable Primary Care Provider Unavailable Reason for Visit Reason Comments Med Refill Encounter Details Date Type Department Care Team Description 02/03/2018 Refill Department of Family Medicine, Bambi Adler Med Refill [facility], in Renee Phillips M.D. [place] [address] [place] [address] [place] [address] [phone] Social History Tobacco Use Types Packs/Day Years [...] How often do you attend anglican or anglican services? 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
--- OUTSIDE RECORDS SUMMARY | 2022-04-28 14:46 | XMS_ITS | Encounter Summary ---
:1950 Author Organization [facility] Address [address] [place] [address] Care Team Providers Name Role Phone Unavailable Primary Care Provider Unavailable Reason for Visit Reason Comments Other review medications Appointment Request (Routine) - Closed Specialty Diagnoses / Procedures Referred By Contact Refer red To Contact Family Medicine Referral ID Status Reason Start Date Expiration Date Visits Requ ested Visits Authorized [id number] Closed 12/23/2017 12/23/2018 1 Encounter Details Date Type Department Care Team Description 01/03/2018 [facility], Renee Antonio, (Primary Dx) Clinic, in [place] [address] [place] [phone] Social History Tobacco Use Types Packs/Day Years [...] How often do you attend taoism or rastafari services? 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 Onesimo is regularly seen at the [facility] in [place] where they manage his chronic narcotic medications. [...] Rash itchy ??? Pregabalin Anaphylaxis swell ??? Esaxrdh-Vyw-Olo Reductase Inhibitors Myalgia PAST MEDICAL / SURGICAL [...] popliteal and /or tibial artery angioplasty/stent Notes: [id number] ??? ENDOVASCULAR ILIAC AND/OR FEMORAL AND/OR POPLITEAL AND /OR TIBIAL ARTERY ANGIOPLASTY/STENT Right08/31/2017 Endovascular iliac and/or femoral and/or popliteal and /or tibial artery angioplasty/stent Notes: [id number] ??? FEMORAL ARTERY STENT Right 08/31/2017 ??? FEMORAL ENDARTERECTOMY, PATCH ANGIOPLASTY/INTERPOSITION GRAFT WITH/WITHOUT PROFUNDOPLASTY Left 04/04/2017 Femoral endarterectomy, patch angioplasty/interposition graft with/without profundoplasty Notes: [id number] ??? NM SESTAMIBI W/DOBUTAMINE 1 DA postive [...] follow with the Pain Management facility in [place] Follow up The patient will contact the [...]
--- OUTSIDE RECORDS SUMMARY | 2022-04-28 14:46 | XMS_ITS | Encounter Summary ---
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
--- OUTSIDE RECORDS SUMMARY | 2022-04-28 14:46 | XMS_ITS | Encounter Summary ---
:1950 Author Organization [facility] Address [address] [place] [address] Care Team Providers Name Role Phone Unavailable Primary Care Provider Unavailable Reason for Visit Outpatient (Routine) - Closed Specialty Diagnoses / Procedures Referred By Contact Refer red To Contact Radiology Diagnoses Peripheral Arterial Disease (HCC) Atherosclerosis Of [place] Ar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 (HCC) Atherosclerosis Of [place] Arteries Of Left Leg With Ulceration Of Unspecified Site (HCC) Kemar Velásquez M.B.BFeiS. Rst Rad Us [place] 04 Peripheral Arterial Disease (HCC) Atherosclerosis Of [place] Ar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 (HCC) Atherosclerosis Of [place] Arteries Of Left Leg With Ulceration Of Unspecified Site (HCC) [address] Procedures US LOWER EXTREMITY ARTERIES BILATERAL [place] [address] [place] [address] Phone: Fax: Referral ID Status Reason Start Date Expiration Date Visits Requ ested Visits Authorized [id number] Closed 01/13/2018 01/13/2019 1 1 Encounter Details Date Type Department Care Team Description 01/13/2018 Hospital Encounter Department of Kemar Velásquez Periphe ral Arterial Disease (HCC); Radiology, Santiago DavidB.SFei Atherosclerosis Of [place] Arteries Of Ex tremities With Intermittent Claudication Right Leg (HCC); Building, in [address] Atherosclerosis Of [place] Arteries Of Le ft Leg With Ulceration Of Unspecified Site (HCC) [facility] [address] [phone] [place], [place] (Work) [address] [phone] Social History Tobacco Use Types Packs/Day Years [...] at Date Recorded 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 Extremities With Intermittent Claudication Right Leg (HCC) Atherosclerosis Of [place] Arteries Of Left Leg With Ulceration Of [...] COMPARISON: Prior ultrasound August 08 FINDINGS Patent SCOOP FILLER's and PFA's. Patent SFAs incl uding the [...] COMPARISON: Prior ultrasound August 08 FINDINGS Patent SCOOP FILLER's and PFA's. Patent SFAs incl uding the [...] Diagnosis Peripheral Arterial Disease (HCC) Atherosclerosis Of [place] Arteries Of Ex tremities With Intermittent Claudication Right Leg (HCC) Atherosclerosis Of [place] Arteries Of Le ft Leg With Ulceration Of Unspecified Site (HCC) documented in this encounter Additional Health Concerns Assessment Noted Time PHQ-9 Depression Total Score: 3 01/03/2018 10:38 AM CD T documented as of this encounter
--- OUTSIDE RECORDS SUMMARY | 2022-04-28 14:46 | XMS_ITS | Encounter Summary ---
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 [address] Procedures LOWER EXTREMITY ARTERIAL (MIMI) - TCPO2 (WOUND) CVD TEST LOWER ART TCP02 [address] [place] [phone] Referral ID Status Reason Start Date Expiration Date Visits Requ ested Visits Authorized [id number] Closed 01/13/2018 01/13/2019 1 1 Encounter Details Date Type Department Care Team Description 01/13/2018 Hospital Encounter Department of Kemar Velásquez Periphe ral Arterial Disease (HCC); Vascular Medicine M.B.B.S. Atherosclerosis Of [place] Arteries Of Ex tremities With Intermittent Claudication Right Leg (HCC); in [place] [address] [address] [facility] Atherosclerosis Of [place] Arteries Of Le ft Leg With Ulceration Of Unspecified Site (HCC) [place], [place] [address] [facility] [address] [place], [place] [phone] (Work) [phone] Social History Tobacco Use Types Packs/Day Years [...] How often do you attend presybeterian or sabianism services? 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 lancets [facility] [...] TCPO2 (WOUND) Atherosclerosis Of the resu lts [place] Arteries Of section. Extremities With Intermittent Claudication Right Leg (HCC) Atherosclerosis Of [place] Arteries Of Left Leg With Ulceration Of [...] Diagnosis Peripheral Arterial Disease (HCC) Atherosclerosis Of [place] Arteries Of Ex tremities With Intermittent Claudication Right Leg (HCC) Atherosclerosis Of [place] Arteries Of Le ft Leg With Ulceration Of Unspecified Site (HCC) documented in this encounter Additional Health Concerns Assessment Noted Time PHQ-9 Depression Total Score: 3 01/03/2018 10:38 AM CD T documented as of this encounter
--- OUTSIDE RECORDS SUMMARY | 2022-04-28 14:46 | XMS_ITS | Encounter Summary ---
:1950 Author Organization [facility] Address [address] [place] [address] Care Team Providers Name Role Phone Unavailable Primary Care Provider Unavailable Reason for Visit Reason Onset Date Comments Communication 02/03/2018 I had to call and re schedule this patient due to power being out at the [facility] 02-03. He was less than pleased as he has waited 3 w eeks for this appt. I rescheduled him for -14 but he is really hoping you could get him in sooner. Please call and let him know [phone] Encounter Details Date Type Department Care Team Description 02/03/2018 Clinical Communication Department of Carlos julian (I had Family Medicineantony, to [facility] and [facility] this in [place], 2199 patient due to [facility] being out at the [address] [place] [phone] 02-03. He was less [phone] than pleased as he has waited 3 weeks [phone] for this appt. I (Fax) rescheduled him for 11-14 but he is really hoping y ou could get him i n sooner. Please call and let him kno w [phone]) Social History Tobacco Use Types Packs/Day Years [...] How often do you attend methodist or pentecostalism services? 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 - 02/07/2018 9:19 AM CDT Contacted patient. Informed that he is on the waiting list and will be called if there are any cancellations. Telephone Encounter - Holly Marino - 02/03/2018 9:16 AM CDT I had to call and reschedule this patient due to power being out at the [facility] 02-03. He was less than pleased as he has waited 3 weeks for this appt. I rescheduled him for 03-29 but he is really hoping you could get him in sooner. Please call and let him know [phone] documented in this encounter Plan of Treatment Not on filedocumented as of this encounter Visit Diagnoses Not on filedocumented in this encounter Additional Health Concerns Assessment Noted Time PHQ-9 Depression Total Score: 3 01/03/2018 10:38 AM CD T documented as of this encounter
--- OUTSIDE RECORDS SUMMARY | 2022-04-28 14:46 | XMS_ITS | Encounter Summary ---
:1950 Author Organization [facility] Address [address] [place] [address] Care Team Providers Name Role Phone Unavailable Primary Care Provider Unavailable Reason for Visit Reason Onset Date Comments Medication Question 02/16/2018 Encounter Details Date Type Department Care Team Description 02/16/2018 Clinical Communication Department of [facility] Question Family Medicine, [facility], nita Duran M.D. [place], [place] [address] [place] [phone] Social History Tobacco Use Types Packs/Day [...] often do you attend oriental orthodox or restoration services? 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 - 02/16/2018 2:18 PM CDT Contacted Ottoniel at [facility] pharmacy.Correct script for Gabapentin is 300 mg 2 times a day. Telephone Encounter - Maxi Strong - 02/16/2018 1:40 PM CDT 2 RX for gabapentin for various quantities and had different directions as well. Please call to confirm which RX to fill. [phone] documented in this encounter Plan of Treatment Not on filedocumented as of this encounter Visit Diagnoses Not on filedocumented in this encounter Additional Health Concerns Assessment Noted Time PHQ-9 Depression Total Score: 3 01/03/2018 10:38 AM CD T documented as of this encounter
--- OUTSIDE RECORDS SUMMARY | 2022-04-28 14:46 | XMS_ITS | Encounter Summary ---
:1950 Author Organization [facility] Address [address] [place] [address] Care Team Providers Name Role Phone Unavailable Primary Care Provider Unavailable Reason for Visit Reason Comments Med Refill Encounter Details Date Type Department Care Team Description 02/23/2018 Refill Department of Family Medicine, Bambi Adler Med Refill [facility], in [place] M.D. [place] [address] [place] [address] [place] [address] [phone] Social History Tobacco Use Types Packs/Day Years [...] How often do you attend holiness or yarsanism services? 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 Nurse Review: DME Request Provider: Renee Catalan M.D. Supply Ordered: Accu-Chek Talia Meter Quantity: N/A Directions: N/A Refills: N/A Pharmacy: [facility] Please Include the ICD 10 documented in [...]
--- OUTSIDE RECORDS SUMMARY | 2022-04-28 14:46 | XMS_ITS | Encounter Summary ---
:1950 Author Organization [facility] Address [address] [place] [address] Care Team Providers Name Role Phone Unavailable Primary Care Provider Unavailable Encounter Details Date Type Department Care Team Description 02/16/2018 Orders Only Department of Neurology Yessy Cohen, Restless Leg Syndrome in [facility] ariel Brock, M.P.H. (Primary Dx) [address] [facility] [place] [phone] Social History Tobacco Use Types Packs/Day [...] How often do you attend restorationist or confucianist services? 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 Plan of Treatment Not on filedocumented as of this encounter Results Ferritin (02/16/2018 1:21 PM CDT) P athologist Signature Ferritin, S 44 mcg/L 02/16/2018 [facility] 4:51 PM CDT [facility] Comment: Biotin has been identified by [...] Code Phon e Number [facility] [address], [place] [address] LAB documented in this encounter Visit Diagnoses Diagnosis Restless Leg Syndrome - Primary documented in this encounter Additional Health Concerns Assessment Noted Time PHQ-9 Depression Total Score: 3 01/03/2018 10:38 AM CD T documented as of this encounter
--- OUTSIDE RECORDS SUMMARY | 2022-04-28 14:47 | XMS_ITS | Encounter Summary ---
:1950 Author Organization [facility] Address [address] [place] [address] Care Team Providers Name Role Phone Unavailable Primary Care Provider Unavailable Encounter Details Date Type Department Care Team Description 07/27/2017 Abstract Department of Family Medicine, Provider, Historical [facility], in [place], [place] [address] [place] [address] Social History Tobacco Use [...] How often do you attend alevism or yazidi services? 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
--- OUTSIDE RECORDS SUMMARY | 2022-04-28 14:47 | XMS_ITS | Encounter Summary ---
:1950 Author Organization [facility] Address [address] [place] [address] Care Team Providers Name Role Phone Unavailable Primary Care Provider Unavailable Reason for Visit Reason Comments Communication Encounter Details Date Type Department Care Team Description 07/30/2017 Clinical Communication Department of [facility] Medicine, [place] Renee syed, [place], in [place] [address] [facility] [place] [phone] Social History Tobacco Use Types Packs/Day Years [...] How often do you attend adventism or synagogue services? 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
--- OUTSIDE RECORDS SUMMARY | 2022-04-28 14:47 | XMS_ITS | Encounter Summary ---
:1950 Author Organization [facility] Address [address] [place] [address] Care Team Providers Name Role Phone Unavailable Primary Care Provider Unavailable Reason for Referral Outpatient (Routine) - Closed Specialty Diagnoses / Procedures Referred By Contact Refer red To Contact Neurology Diagnoses Restless Leg Syndrome SHIVA Catalan [facility] Demetri Duran M.D. [address] [place] [address] Referral ID Status Reason Start Date Expiration Date Visits V isits Requested Authorized [id number] Closed Specialty 10/31/2017 10/31/2018 1 1 Services Required Reason for Visit Reason Comments Other consult recommended by pain clinic for RLS Encounter Details Date Type Department Care Team Description 10/31/2017 Office Visit Department of [facility] Ruthie Res tless Leg Syndrome Medicine, Renee Antonio, (Primary Dx) Clinic, in [place] [address] [place] [address] [phone] Social History Tobacco Use Types Packs/Day Years [...] How often do you attend protestant or religion services? 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 He did notice that when he took [...] Rash itchy ??? Pregabalin Anaphylaxis swell ??? Hkttdyz-Ysr-Qan Reductase Inhibitors Myalgia PAST MEDICAL / SURGICAL [...] popliteal and /or tibial artery angioplasty/stent Notes: [id number] ??? ENDOVASCULAR ILIAC AND/OR FEMORAL AND/OR POPLITEAL AND /OR TIBIAL ARTERY ANGIOPLASTY/STENT Right08/31/2017 Endovascular iliac and/or femoral and/or popliteal and /or tibial artery angioplasty/stent Notes: [id number] ??? FEMORAL ARTERY STENT Right 08/31/2017 ??? FEMORAL ENDARTERECTOMY, PATCH ANGIOPLASTY/INTERPOSITION GRAFT WITH/WITHOUT PROFUNDOPLASTY Left 04/04/2017 Femoral endarterectomy, patch angioplasty/interposition graft with/without profundoplasty Notes: [id number] ??? NM SESTAMIBI W/DOBUTAMINE 1 DA postive [...] Type Priority Associated Diagnoses Order S [facility] Neurology - General Outpatient Referral Routine Restless Leg O rdered: consult (clinic) Syndrome 10/31/2017 documented as of this encounter Visit Diagnoses Diagnosis Restless Leg Syndrome - Primary documented in this encounter Additional Health Concerns Assessment Noted Time PHQ-9 Depression Total Score: 7 07/22/2017 11:14 AM CS T documented as of this encounter
--- OUTSIDE RECORDS SUMMARY | 2022-04-28 14:47 | XMS_ITS | Encounter Summary ---
:1950 Author Organization [facility] Address [address] [place] [address] Care Team Providers Name Role Phone Unavailable Primary Care Provider Unavailable Encounter Details Date Type Department Care Team Description 09/07/2017 Orders Only Department of [facility] Radha velasquez, [facility] in [facility] ariel [address] [place] [address] [place] [phone] (Wo rk) Social History Tobacco Use Types [...] How often do you attend restorationist or nondenominational services? 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
--- OUTSIDE RECORDS SUMMARY | 2022-04-28 14:47 | XMS_ITS | Encounter Summary ---
:1950 Author Organization [facility] Address [address] [place] [address] Care Team Providers Name Role Phone Unavailable Primary Care Provider Unavailable Reason for Visit Reason Comments Med Refill Encounter Details Date Type Department Care Team Description 09/07/2017 Refill Department of Family Medicine, Bambi Adler Med Refill [facility], in [place] M.D. [place] [address] [place] [address] [place] [address] [phone] Social History Tobacco Use Types Packs/Day Years [...] How often do you attend mormon or buddhist services? 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
--- OUTSIDE RECORDS SUMMARY | 2022-04-28 14:47 | XMS_ITS | Encounter Summary ---
:1950 Author Organization [facility] Address [address] [place] [address] Care Team Providers Name Role Phone Unavailable Primary Care Provider Unavailable Reason for Visit Reason Comments Hypotension gets dizzy and black outs Encounter Details Date Type Department Care Team Description 10/21/2017 Office Visit Department of [facility] tatiannaJanett Per dominikhersurinder Arterial Medicine, Renee Antonio, Disease (HCC) (Primary Clinic, in [place] Dx) [place] [address] [place], [place] [phone] Social History Tobacco Use Types Packs/Day [...] often do you attend jehovah's witness or rastafarian services? 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 ) 15 mL 3 ??? lancets [facility] Dispense item covered by pt [...] Rash itchy ??? Pregabalin Anaphylaxis swell ??? Zmbcsgy-Wft-Yvr Reductase Inhibitors Myalgia PAST MEDICAL / SURGICAL [...] popliteal and /or tibial artery angioplasty/stent Notes: [id number] ??? ENDOVASCULAR ILIAC AND/OR FEMORAL AND/OR POPLITEAL AND /OR TIBIAL ARTERY ANGIOPLASTY/STENT Right08/31/2017 Endovascular iliac and/or femoral and/or popliteal and /or tibial artery angioplasty/stent Notes: [id number] ??? FEMORAL ARTERY STENT Right 08/31/2017 ??? FEMORAL ENDARTERECTOMY, PATCH ANGIOPLASTY/INTERPOSITION GRAFT WITH/WITHOUT PROFUNDOPLASTY Left 04/04/2017 Femoral endarterectomy, patch angioplasty/interposition graft with/without profundoplasty Notes: [id number] ??? NM SESTAMIBI W/DOBUTAMINE 1 DA postive [...] echo Will obtain sestamibi scan at the [facility] and refer to our partner alliance manager, Dr. Santos Harris. Follow up The patient will contact the clinic with any new or worsening symptoms. This document serves as a record of services personally performed by Renee Lacy MD. It was created on their behalf by Marie Peterson, a trained medical office supervisor. The creation of this record is based [...]
--- OUTSIDE RECORDS SUMMARY | 2022-04-28 14:47 | XMS_ITS | Encounter Summary ---
:1950 Author Organization [facility] Address [address] [place] [address] Care Team Providers Name Role Phone Unavailable Primary Care Provider Unavailable Reason for Visit Reason Comments Follow-up post vasular surgical isabelle mcfarlane at [facility] Encounter Details Date Type Department Care Team Description 09/06/2017 Office Visit Department of Family Fruehtatianna-Lane Hype rlipidemia (Primary Dx); Medicine, Renee Snider, Edwar s Mellitus Type 2 (HCC); Clinic, in [place] Pain Wrist Left; [place] [address] Peripheral Arterial Disease (HCC) [address] [facility] [place] [phone] Social History Tobacco Use Types Packs/Day [...] How often do you attend orthodox or gnosticism services? 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 He was hospitalized 08/31-09/01/2017 at [facility] in [place] after undergoing right superficial femoral artery stent [...] day. ) 15 mL 3 ??? lancets [facility] Dispense item covered by pt ins. 250.02 [...] Rash itchy ??? Pregabalin Anaphylaxis swell ??? Gttdfos-Dwr-Ifx Reductase Inhibitors Myalgia PAST MEDICAL / SURGICAL [...] popliteal and /or tibial artery angioplasty/stent Notes: [id number] ??? FEMORAL ENDARTERECTOMY, PATCH ANGIOPLASTY/INTERPOSITION GRAFT WITH/WITHOUT PROFUNDOPLASTY Left 04/04/2017 Femoral endarterectomy, patch angioplasty/interposition graft with/without profundoplasty Notes: [id number] ??? NM SESTAMIBI W/DOBUTAMINE 1 DA postive [...] and Plavix. Followup with Vascular medicine at [facility] as recommended. #2 Type II diabetes [...] behalf by Marie Peterson, a trained medical chief technician. The creation of this record is based on the scribe's personal observations and the provider's statements to them. This document has been parul cked and approved by the attending provider. documented in this encounter Plan of Treatment Not on filedocumented as of this encounter Results (ABNORMAL) Hemoglobin A1c (12/06/2017 7:39 AM CDT) P athologist Signature Hemoglobin A1c, 7.8 (H) 4.2 - 5.6 12/06/2017 [facility] B % 12:10 PM CDT [facility] Comment: Hemoglobin A1c values greater [...] Phon e Number [facility] [address] [place] [address] LAB DX Wrist Left 2 Views (09/06/2017 [...]
--- OUTSIDE RECORDS SUMMARY | 2022-04-28 14:47 | XMS_ITS | Encounter Summary ---
:1950 Author Organization [facility] Address [address] [place] [address] Care Team Providers Name Role Phone Unavailable Primary Care Provider Unavailable Reason for Referral Outpatient (Routine) - Closed Specialty Diagnoses / Referred By Contact Referred To Contact Procedures Cardiovascular Diseases / Diagnoses Syncope And Near Syncope eNna [facility] Cardiovascular Disease Renee escobedo M.D. [address], [place] [address] Referral ID Status Reason Start Date Expiration Date Visits Requ ested Visits Authorized [id number] Closed 10/27/2017 10/27/2018 1 1 Encounter Details Date Type Department Care Team Description 10/27/2017 Orders Only Department of [facility] And Near Medicine, Renee Antonio, Syncope (Primary Dx) Clinic, in [place] [address] [place] [phone] Social History Tobacco Use Types Packs/Day Years [...] How often do you attend jewish or quaker services? 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
--- OUTSIDE RECORDS SUMMARY | 2022-04-28 14:47 | XMS_ITS | Encounter Summary ---
:1950 Author Organization [facility] Address [address] [place] [address] Care Team Providers Name Role Phone Unavailable Primary Care Provider Unavailable Reason for Visit Reason Comments Med Refill Encounter Details Date Type Department Care Team Description 08/04/2017 Refill Department of Family Medicine, Bambi Chula Med Refill [facility] [address] [place] [address] [place] [address] [facility] [phone] Social History Tobacco Use Types Packs/Day Years [...] How often do you attend voodoo or shinto services? 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
--- OUTSIDE RECORDS SUMMARY | 2022-04-28 14:47 | XMS_ITS | Encounter Summary ---
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
--- OUTSIDE RECORDS SUMMARY | 2022-04-28 14:47 | XMS_ITS | Encounter Summary ---
:1950 Author Organization [facility] Address [address] [place] [address] Care Team Providers Name Role Phone Unavailable Primary Care Provider Unavailable Encounter Details Date Type Department Care Team Description 08/30/2017 Abstract Department of Family Medicine, Provider, Historical [facility], in [place], [place] [address] [place] [address] Social History Tobacco Use [...] How often do you attend scientology or amish services? 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
--- OUTSIDE RECORDS SUMMARY | 2022-04-28 14:47 | XMS_ITS | Encounter Summary ---
:1950 Author Organization [facility] Address [address] [place] [address] Care Team Providers Name Role Phone Unavailable Primary Care Provider Unavailable Reason for Visit Reason Comments Med Refill Encounter Details Date Type Department Care Team Description 08/02/2017 Refill Department of Family Medicine, Bambi Adler Med Refill [facility], in Renee Phillips M.D. [place] [address] [place] [address] [place] [address] [phone] Social History Tobacco Use Types Packs/Day Years [...] often do you attend latter day or baptist services? 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
--- OUTSIDE RECORDS SUMMARY | 2022-04-28 14:47 | XMS_ITS | Encounter Summary ---
:1950 Author Organization [facility] Address [address] [place] [address] Care Team Providers Name Role Phone Unavailable [...] How often do you attend mandaeism or protestant services? 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
--- OUTSIDE RECORDS SUMMARY | 2022-04-28 14:47 | XMS_ITS | Encounter Summary ---
:1950 Author Organization [facility] Address [address] [place] [address] Care Team Providers Name Role Phone Unavailable Primary Care Provider Unavailable Encounter Details Date Type Department Care Team Description 09/30/2017 Clinical Communication Division of Vascular and Kemar Velásquez, Endovascular Surgery in [place], [place] [address] [facility] [address] [place] [address] [phone] Social History Tobacco Use Types Packs/Day Years [...] How often do you attend protestant or islam services? 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
--- OUTSIDE RECORDS SUMMARY | 2022-04-28 14:47 | XMS_ITS | Encounter Summary ---
:1950 Author Organization [facility] Address [address] [place] [address] Care Team Providers Name Role Phone Unavailable Primary Care Provider Unavailable Reason for Referral Outpatient (Routine) - Closed Specialty Diagnoses / Procedures Referred By Contact Refer red To Contact Vascular Medicine Kemar Vel[facility]quez 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
--- OUTSIDE RECORDS SUMMARY | 2022-04-28 14:47 | XMS_ITS | Encounter Summary ---
:1950 Author Organization [facility] Address [address] [place] [address] Care Team Providers Name Role Phone Unavailable Primary Care Provider Unavailable Encounter Details Date Type Department Care Team Description 07/30/2017 Orders Only Department of [facility] Radha velasquez, Medicine, [facility] 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
--- OUTSIDE RECORDS SUMMARY | 2022-04-28 14:47 | XMS_ITS | Encounter Summary ---
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 Hyperlipidemia [place] [address] [place], [place] [phone] Social History Tobacco Use Types Packs/Day Years [...] How often do you attend jainism or jainism services? 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 lancets [facility] [place]pense item 0 08/23/2014 9 covered by [...] AST (Aspartate Aminotransferase) (07/26/2017 8:55 AM CDT) [facility] Method Time Signature Aspartate 26 8 - 48 07/26/2017 [facility] Aminotransferase U/L 11:01 AM CDT [facility] [facility] Specimen Anatomical Collection Method Collection Time Receive d Time (Source) Location / / Volume Laterality Blood (Blood, 07/26/2017 8:55 AM 07/27/19 18 Venous) CDT 10:44 AM CDT Renee Catalan M.D. LAB BLOOD ADD-ON Performing Organization Address City/[facility] Phon e Number [facility] [address], [place] [address] LAB (ABNORMAL) Hemoglobin A1c (07/26/2017 8:55 AM CDT) P athologist Signature Hemoglobin A1c, 9.1 (H) 4.2 - 5.6 07/26/2017 [facility] B % 11:[address] [facility] Comment: Hemoglobin A1c values greater than or eq ual to 6.5 percent are diagnostic for diabetes mellitus. ?? Diagnosis should be confirmed by repeat testing. ??In diabet ic patients, HbA1c goals should be discussed with [facility] e provider. Specimen Anatomical Collection Method Collection Time Receive d Time (Source) Location / / Volume Laterality Blood (Blood, 07/26/2017 8:55 AM 07/27/19 18 Venous) CDT 10:44 AM CDT Renee Catalan M.D. LAB BLOOD ADD-ON Performing Organization Address City/[facility]/ZIP Code Phon e Number [facility] [place] [address], [place] [address] LAB (ABNORMAL) Lipid Panel (07/26/2017 8:55 AM CDT) P athologist Signature Cholesterol, 148 mg/dL 07/26/2017 [facility] Total 11:[address] [facility] Comment: ----REFERENCE VALUE---- Desirable: < 200 Borderline high: 200 - 239 High: > or = 240 Triglycerides 249 (H) mg/dL 07/26/2017 11:01 AM CDT [facility] Comment: ----REFERENCE VALUE---- Normal: <150 Borderline high: 150-199 High: 200-499 Very high: > or =500 Cholesterol, HDL, S 40 >=40 mg/dL 07/26/2017 11:01 AM CDT [facility] Calculated LDL 58 mg/dL 07/26/2017 11:01 AM CDT M [facility] [place] [facility] Comment: ----REFERENCE VALUE---- Desirable: <100 Above Desirable: 100-129 Borderline high: 130-159 High: 160-189 Very high: > or =190 Cholesterol, Non-HDL, 108 mg/dL 07/26/2017 11:01 A M CDT [facility] [place] B Comment: ----REFERENCE VALUE---- Desirable: <130 Above Desirable: 130-159 Borderline high: 160-189 High: 190-219 Very high: > or =220 Specimen Anatomical Collection Method Collection Time Receive d Time (Source) Location / / Volume Laterality Blood (Blood, 07/26/2017 8:55 AM 07/27/19 18 Venous) CDT 10:44 AM CDT Renee Catalan M.D. LAB BLOOD ADD-ON Performing Organization Address City/State/ZIP Code Phon e Number [facility] [address] [place] [address] LAB (ABNORMAL) BMP (Basic Metabolic Panel) (07/26/2017 8:55 AM CDT) Analysis Performed At Patho logist Time Signature Potassium, S 5.1 3.6 - 5.2 07/26/2017 [facility] mmol/L 11:01 AM T [facility] Sodium, S 142 135 - 145 07/26/2017 [facility] mmol/L 11:[address] [facility] Chloride, S 99 98 - 107 07/26/2017 [facility] mmol/L 11:01 AM [facility] Bicarbonate, S 30 (H) 22 - 29 07/26/2017 [facility] mmol/L 11:[address] [facility] Anion Gap 13 7 - 15 07/26/2017 [facility] 11:[address] [facility] [facility] BUN (Blood Urea 26 (H) 8 - 24 07/26/2017 [facility] Nitrogen), S mg/dL 11:01 AM T [facility] [employer] LAB Creatinine 1.99 (H) 0.74 - 07/26/2017 [facility] 1.35 mg/dL 11:01 AM [facility] eGFR 34 (L) >=60 07/26/2017 [facility] Non-Black/Afric mL/min/BSA 11:01 AM [facility] Comment: ----ADDITIONAL INFORMATION---- Estimated GFR calculated using the 2009 CKD_EPI creatinine equation. eGFR Black/ 40 (L) >=60 mL/min/BSA 07/26/2017 11:0 1 AM [facility] [employer] LAB Comment: ----ADDITIONAL INFORMATION---- Estimated GFR calculated using the 2009 CKD_EPI creatinine equation. Calcium, Total, S 9.2 8.9 - 10.1 mg/dL 07/26/2017 11:0 1 AM [facility] Glucose, S 135 70 - 140 mg/dL 07/26/2017 11:01 AM [facility] Specimen Anatomical Collection Method Collection Time Receive d Time (Source) Location / / Volume Laterality Blood (Blood, 07/26/2017 8:55 AM 07/27/19 18 Venous) CDT 10:44 AM CDT Renee Catalan M.D. LAB BLOOD ADD-ON Performing Organization Address City/State/ZIP Code Phon e Number [facility] [address] [place] [address] LAB documented in this encounter Visit Diagnoses Diagnosis Diabetes Mellitus Type 2 With Diabetic P olyneuropathy (HCC) Hypertension And Chronic Kidney Disease Stage 1 To 4 Hyperlipidemia documented in this encounter Additional Health Concerns Assessment Noted Time PHQ-9 Depression Total Score: 7 07/22/2017 11:14 AM CS T documented as of this encounter
--- OUTSIDE RECORDS SUMMARY | 2022-04-28 14:47 | XMS_ITS | Encounter Summary ---
:1950 Author Organization [facility] Address [address] [place] [address] Care Team Providers Name Role Phone Unavailable Primary Care Provider Unavailable Reason for Visit Reason Comments Med Refill Encounter Details Date Type Department Care Team Description 09/14/2017 Refill Department of Family Medicine, Bambi Adler Med Refill [facility], in [place]ene[place] M.D. [place] [address] [place] [address] [place] [address] [phone] Social History Tobacco Use Types Packs/Day Years [...] How often do you attend hindu or nondenominational services? 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 Primary Provider: Renee Catalan M.D. Name of medication: Lantus Solostar Strength: 100 UNIT/ML SOPN Frequency: Inject 0.3 mL (30 units) subcutaneously at bedtime. Quantity: 15 Refills: ___ Last Refill: 08/01/17 Pharmacy: [facility] documented in this encounter Plan of Treatment Not on filedocumented as of this encounter Visit Diagnoses Not on filedocumented in this encounter Additional Health Concerns Assessment Noted Time PHQ-9 Depression Total Score: 7 07/22/2017 11:14 AM CS T documented as of this encounter
--- OUTSIDE RECORDS SUMMARY | 2022-04-28 14:47 | XMS_ITS | Encounter Summary ---
:1950 Author Organization [facility] Address [address] [place] [address] Care Team Providers Name Role Phone Unavailable Primary Care Provider Unavailable Encounter Details Date Type Department Care Team Description 10/27/2017 Clinical Communication [facility] [place], in [place] [address] [place] [phone] Social History Tobacco Use Types Packs/Day Years [...] How often do you attend lutheran or jain services? 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
--- OUTSIDE RECORDS SUMMARY | 2022-04-28 14:47 | XMS_ITS | Encounter Summary ---
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
--- OUTSIDE RECORDS SUMMARY | 2022-04-28 14:47 | XMS_ITS | Encounter Summary ---
:1950 Author Organization [facility] Address [address] [place] [address] Care Team Providers Name Role Phone Unavailable Primary Care Provider Unavailable Encounter Details Date Type Department Care Team Description 10/07/2017 Abstract Department of Family Medicine, Provider, Historical [facility], in [place], [place] [address] [place] [address] Social History Tobacco Use [...] How often do you attend mandaeism or yarsanism services? 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
--- OUTSIDE RECORDS SUMMARY | 2022-04-28 14:47 | XMS_ITS | Encounter Summary ---
:1950 Author Organization [facility] Address [address] [place] [address] Care Team Providers Name Role Phone Unavailable Primary Care Provider Unavailable Encounter Details Date Type Department Care Team Description 09/06/2017 Hospital Encounter Department of Radiology Fruehbrodt- Glenz Pain Wrist Left in [place], [facility] Renee james, [address] [facility] [place] [address] [address] [place], [place] [phone] Social History Tobacco Use Types Packs/Day [...] often do you attend jehovah's witness or pentecostalism services? 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
--- OUTSIDE RECORDS SUMMARY | 2022-04-28 14:47 | XMS_ITS | Encounter Summary ---
:1950 Author Organization [facility] Address [address] [place] [address] Care Team Providers Name Role Phone Unavailable [...] How often do you attend sikhism or sikh services? 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 lancets [facility] Dispense item 0 [...] Results Glucose, POCT (09/01/2017 6:28 AM CDT) [facility] Method Time Signature Glucose, 115 70 - 140 [facility] POCT, B MG/DL LABORATORIES [facility] Site Capillary [facility] Last Intake > 4 hours [facility] Specimen Anatomical Collection Method Collection Time Receive d Time (Source) Location / / Volume Laterality 09/01/2017 6:28 AM 8 6:28 CDT AM CDT Historical Provider LAB POCT ORDERABLES-MANUAL Performing Organization Address City/State/ZIP Code Phon e Number [facility] LABORATORIES - [address] [address] [facility] (ABNORMAL) Electrolyte (Chem 4) Panel (09/01/2017 4:16 AM CDT) [facility] Method Time Signature Chloride, S 101 98 - 107 [facility] MMOL/L LABORATORIES - [facility] HX Bicarbonate, 26 22 - 29 [facility] P/S MMOL/L LABORATORIES - [facility] Sodium, S 141 135 - 145 [facility] MMOL/L LABORATORIES - [facility] Potassium, S 4.8 3.6 - 5.2 [facility] MMOL/L LABORATORIES - [facility] Creatinine 1.5 (H) 0.8 - 1.3 [facility] MG/DL LABORATORIES - [facility] eGFR 47 (L) >60 [facility] Non-Black/Afric ML/MIN/BS LABORATORIES - [facility] eGFR 57 (L) >60 [facility] Black/ ML/MIN/BS [facility] - [facility] BUN (Blood Urea 19 8 - 24 [facility] Nitrogen), S MG/DL [facility] Anion Gap 14 7 - 15 [facility] Glucose, S 143 (H) 70 - 140 [facility] MG/DL [facility] Creatinine 1.5 (H) 0.8 - 1.3 [facility] MG/DL [facility] - [facility] eGFR 47 (L) >60 [facility] Non-Black/Afric ML/MIN/BS [facility] - [facility] eGFR-Black/Afri 57 (L) >60 [facility] can Citizen Of [place] ML/MIN/BS [facility] - [facility] Specimen Anatomical Collection Method Collection Time Receive d Time (Source) Location / / Volume Laterality 09/01/2017 4:16 AM 8 4:16 CDT AM CDT Thais Saldivar APRN C.N.P., M.S. LAB B LOOD ADD-ON Performing Organization Address City/State/ZIP Code Phon e Number [facility] LABORATORIES - [address] [address] [facility] (ABNORMAL) Glucose, POCT (08/31/2017 9:28 PM CDT) [facility] Method Time Signature Glucose, 272 (H) 70 - 140 [facility] POCT, B MG/DL LABORATORIES - [facility] Site Capillary [facility] Last Intake 3-4 hours [facility] Specimen Anatomical Collection Method Collection Time Receive d Time (Source) Location / / Volume Laterality 08/31/2017 9:28 PM 8 9:28 CDT PM CDT Historical Provider LAB POCT ORDERABLES-MANUAL Performing Organization Address [facility] Phon e Number [facility] LABORATORIES - [address] [place], [place] [address] [facility] (ABNORMAL) Glucose, POCT (08/31/2017 4:38 PM CDT) [facility] Method Time Signature Glucose, 180 (H) 70 - 140 [facility] POCT, B MG/DL LABORATORIES - [facility] Site Capillary [facility] Last Intake 2-3 hours [facility] Specimen Anatomical Collection Method Collection Time Receive d Time (Source) Location / / Volume Laterality 08/31/2017 4:38 PM 8 4:38 CDT PM CDT Historical Provider LAB POCT ORDERABLES-MANUAL Performing Organization Address City/[facility] Code Phon e Number [facility] LABORATORIES - [address] [address] [facility] (ABNORMAL) Creatinine with Estimated GFR (08/31/2017 12:58 PM CDT) [facility] Method Time Signature Creatinine 1.6 (H) 0.8 - 1.3 [facility] MG/DL LABORATORIES - [facility] eGFR 44 (L) >60 [facility] Non-Black/Afric ML/MIN/BS LABORATORIES - [facility] eGFR 53 (L) >60 [facility] Black/ ML/MIN/BS LABORATORIES [facility] Creatinine 1.6 (H) 0.8 - 1.3 [facility] MG/DL LABORATORIES - [facility] eGFR 44 (L) >60 [facility] Non-Black/Afric ML/MIN/BS LABORATORIES - [facility] eGFR-Black/Afri 53 (L) >60 [facility] can Citizen [place] ML/MIN/BS LABORATORIES [facility] Specimen Anatomical Collection Method Collection Time Receive d Time (Source) Location / / Volume Laterality 08/31/2017 12:58 08/31/2017 PM CDT 12:58 PM CDT Dick Robbins M.D. LAB BLOOD ADD-ON Performing Organization Address City/State/ZIP Code Phon e Number [facility] LABORATORIES - [address] [place], [place] [address] [facility] (ABNORMAL) CBC with Differential (08/31/2017 12:58 PM CDT) Patholo gist Method Time Signature Erythrocytes 3.71 (L) 4.32 - [facility] 5.72 LABORATORIES - X10(12)/L [facility] MCV 90.0 81.2 - [facility] 95.1 FL LABORATORIES - [facility] Lymphocytes 1.96 0.90 - [facility] 2.90 LABORATORIES - X10(9)/L [facility] Monocytes 1.34 (H) 0.30 - [facility] 0.90 LABORATORIES - X10(9)/L [facility] Hemoglobin 11.3 (L) 13.5 - [facility] 17.5 G/DL [facility] Hematocrit 33.4 (L) 38.8 - [facility] 50.0 % [facility] RBC Distrib 13.7 11.8 - [facility] Width 15.6 % [facility] Platelet Count 231 150 - 450 [facility] X10(9)/L LABORATORIES [facility] Leukocytes 11.1 (H) 3.5 - [facility] 10.5 LABORATORIES - X10(9)/L [facility] Neutrophils 7.38 (H) 1.70 - [facility] 7.00 LABORATORIES - X10(9)/L [facility] Eosinophils 0.42 0.05 - [facility] 0.50 LABORATORIES - X10(9)/L [facility] Basophils 0.04 0.00 - [facility] 0.30 LABORATORIES - X10(9)/L [facility] Specimen Anatomical Collection Method Collection Time Receive d Time (Source) Location / / Volume Laterality 08/31/2017 12:58 08/31/2017 PM CDT 12:58 PM CDT Dick Robbins M.D. LAB BLOOD ADD-ON Performing Organization Address City/State/[facility] Code Phon e Number [facility] LABORATORIES - [address] [address] [facility] Potassium (08/31/2017 12:58 PM CDT) P athologist Signature Potassium, S 4.7 3.6 - 5.2 [facility] MMOL/L LABORATORIES [facility] Specimen Anatomical Collection Method Collection Time Receive d Time (Source) Location / / Volume Laterality 08/31/2017 12:58 08/31/2017 PM CDT 12:58 PM CDT Dick Robbins M.D. LAB BLOOD ADD-ON Performing Organization Address City/[facility]/ZIP Code Phon e Number [facility] LABORATORIES - [address] [place], [place] [address] [facility] Glucose, POCT (08/31/2017 12:10 PM CDT) [facility] Method Time Signature Last Intake NPO [facility] Glucose, 125 70 - 140 [facility] POCT, B MG/DL [facility] Site Capillary [facility] Specimen Anatomical Collection Method Collection Time Receive d Time (Source) Location / / Volume Laterality 08/31/2017 12:10 08/31/2017 PM CDT 12:10 PM CDT Historical Provider LAB POCT ORDERABLES-MANUAL Performing Organization Address City/[facility]/ZIP Code Phon e Number [facility] LABORATORIES - [address] [address] [facility] Glucose, POCT (08/31/2017 10:40 AM CDT) [facility] Method Time Signature Glucose, 117 70 - 140 [facility] POCT, B MG/DL [facility] Site Capillary [facility] Specimen Anatomical Collection Method Collection Time Receive d Time (Source) Location / / Volume Laterality 08/31/2017 10:40 08/31/2017 AM CDT 10:40 AM CDT Historical Provider LAB POCT ORDERABLES-MANUAL Performing Organization Address City/[facility] Phon e Number [facility] - [address] [address] [facility] Cardiac Biomarker Panel (08/31/2017 10:16 AM CDT) [facility] Method Time Signature Troponin T, 15 <=15 NG/L [facility] Baseline, 5th LABORATORIES - gen [facility] Troponin T, 2 14 <=15 NG/L [facility] hr, 5th gen LABORATORIES - [facility] Troponin T, 6 . [facility] hr, 5th gen LABORATORIES - [facility] 2H Delta -1 NG/L [facility] - [facility] 2H Delta No Change [facility] Specimen Anatomical Collection Method Collection Time Receive d Time (Source) Location / / Volume Laterality 08/31/2017 10:16 08/31/2017 AM CDT 10:16 AM CDT Dick Robbins M.D. LAB BLOOD ADD-ON Performing Organization Address City/State/ZIP Code Phon e Number [facility] LABORATORIES - [address] [address] [facility] (ABNORMAL) Creatinine with Estimated GFR (08/31/2017 10:16 AM CDT) [facility] Method Time Signature eGFR-Black/Afri 53 (L) >60 [facility] can Citizen [place] ML/MIN/BS LABORATORIES - A [facility] Creatinine 1.6 (H) 0.8 - 1.3 [facility] MG/DL LABORATORIES - [facility] eGFR 44 (L) >60 [facility] Non-Black/Afric ML/MIN/BS LABORATORIES - an Citizen Of [place] A [facility] Creatinine 1.6 (H) 0.8 - 1.3 [facility] MG/DL LABORATORIES - [facility] Specimen Anatomical Collection Method Collection Time Receive d Time (Source) Location / / Volume Laterality 08/31/2017 10:16 08/31/2017 AM CDT 10:16 AM CDT Dick Robbins M.D. LAB BLOOD ADD-ON Performing Organization Address City/State/ZIP Code Phon e Number [facility] LABORATORIES - [address] [address] [facility] ECG 12 Lead (08/31/2017 10:15 AM CDT) Specimen (Source) Anatomical Collection Method Collection Time Re ceived Time Location / / Volume Laterality 08/31/2017 10:15 AM CDT Narrative HX MIGUE CONVERSION - 08/31/2017 10: 39 AM CDT [id number] 10:15 VENTRICULAR RATE 66 Normal sinus rhythm Right bundle branch block When compared with ECG of 04-APR-2017 14 :34, QT has shortened [id number]^JAYDON BONILLA^MK Procedure Note Mk Willard M.D. - 09/08/2017Formatt ing of this note might be different from the original. [id number] 10:15 VENTRICULAR RATE 66 Normal sinus rhythm Right bundle branch block When compared with ECG of 04-APR-2017 14 :34, QT has shortened [id number]^JAYDON BONILLA^MK Kemar Rodrigues. ECG ORDERABLES Performing Organization [...] Operative Note of sa me date in [facility] LastWord. Electronically signed by: ?? [...] Operative Note of sa me date in [facility] LastWord. Electronically signed by: no valid signature 31-Aug-2017 16:24 Kemar Ryees IMG IR PROCEDURES (ABNORMAL) ACT (Activated Clotting Time), POCT (08/31/2017 8:44 AM CDT) [facility] Method Time Signature Activated 264 (H) 84 - 139 [facility] Clotting Time, SEC LABORATORIES - POCT [facility] Specimen Anatomical Collection Method Collection Time Receive d Time (Source) Location / / Volume Laterality 08/31/2017 8:44 AM 8 8:44 CDT AM CDT Historical Provider LAB POCT ORDERABLES - DEVICE Performing Organization Address City/State/ZIP Code Phon e Number [facility] LABORATORIES - [address] [place], [place] [address] [facility] documented in this encounter Visit Diagnoses Not on filedocumented in this encounter Additional Health Concerns Assessment Noted Time PHQ-9 Depression Total Score: 7 07/22/2017 11:14 AM CS T documented as of this encounter
--- OUTSIDE RECORDS SUMMARY | 2022-04-28 14:47 | XMS_ITS | Encounter Summary ---
:1950 Author Organization [facility] Address [address] [place] [address] Care Team Providers Name Role Phone Unavailable [...] How often do you attend restorationist or cheondoism services? 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
--- OUTSIDE RECORDS SUMMARY | 2022-04-28 14:48 | XMS_ITS | Encounter Summary ---
:1950 Author Organization [facility] Address [address] [place] [address] Care Team Providers Name Role Phone Renee Catalan M.D. 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 documented in this encounter Results VASCULAR SURGERY IMAGE EXAM (05/18/2017 2:29 PM INTERNAL MEDICINE DOCTOR) Specimen (Source) Anatomical Collection Method Collection Time Re ceived Time Location / / Volume Laterality 05/18/2017 2:27 PM INTERNAL MEDICINE DOCTOR Narrative [facility] - 05/18/2017 2:29 PM INTERNAL MEDICINE DOCTOR This order has been created and auto-finalized [...] documented as of this encounter Care Teams Dock Operations Supervisor Relationship Specialty Start Date End Date Renee Catalan M.D. PCP - General Family Medicine 04/11/17 07/18/[address] [phone] documented as of this encounter
--- OUTSIDE RECORDS SUMMARY | 2022-04-28 14:48 | XMS_ITS | Encounter Summary ---
:1950 Author Organization [facility] Address [address] [place] [address] Care Team Providers Name Role Phone Renee Catalan M.D. Primary Care Provider [phone] Encounter Details Date Type Department Care Team [...] How often do you attend jewish or evangelical services? 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 documented in this encounter Results VASCULAR IMAGE EXAM (04/19/2017 3:26 PM PRICE ANALYST) Specimen (Source) Anatomical Collection Method Collection Time Re ceived Time Location / / Volume Laterality 04/19/2017 3:24 PM PRICE ANALYST Narrative [facility] - 04/19/2017 3:26 PM PRICE ANALYST This order has been created and [...] documented as of this encounter Care Teams Back Tender Paper Machine Relationship Specialty Start Date End Date Renee Catalan M.D. PCP - General Family Medicine 04/11/17 07/18/[address] [phone] documented as of this encounter
--- OUTSIDE RECORDS SUMMARY | 2022-04-28 14:48 | XMS_ITS | Encounter Summary ---
:1950 Author Organization [facility] Address [address] [place] [address] Care Team Providers Name Role Phone Unavailable Primary Care Provider Unavailable Encounter Details Date Type Department Care Team Description 07/26/2017 Hospital Encounter Department of [facility] Diabete s Mellitus Type Laboratory Medicine belinda, 2 With Kylah inman in Renee Phillips M.D. 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 lancets [facility] Dispense item 0 08/23/2014 9 covered by [...] Microalbumin, Random, Urine (07/26/2017 8:52 AM CDT) [facility] Method Time Signature Microalbumin 81.2 mg/L 07/26/2017 [facility] 11:34 AM [facility] Creatinine 53 mg/dL 07/26/2017 [facility] 11:34 AM [facility] Albumin/Creatinin 153 (H) <17 mg/g 07/26/2017 [facility] e Ratio 11:34 AM [facility] LAB Specimen Anatomical Collection Method Collection Time Receive d Time (Source) Location / / Volume Laterality Urine (Urine, 07/26/2017 8:52 AM 07/27/19 18 Clean Catch) CDT 10:44 AM CDT Renee Catalan M.D. 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
--- OUTSIDE RECORDS SUMMARY | 2022-04-28 14:48 | XMS_ITS | Encounter Summary ---
:1950 Author Organization [facility] Address [address] [place] [address] Care Team Providers Name Role Phone Renee Catalan M.D. Primary Care Provider [phone] Encounter Details Date Type Department Care Team [...] How often do you attend christian or yarsani services? 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 lancets [facility] Dispense item covered 0 08/23/2014 1 by [...] documented as of this encounter Care Teams Sample Display Preparer Relationship Specialty Start Date End Date Renee Catalan M.D. PCP - General Family Medicine 04/11/17 07/18/[address] [phone] documented as of this encounter
--- OUTSIDE RECORDS SUMMARY | 2022-04-28 14:48 | XMS_ITS | Encounter Summary ---
:1950 Author Organization [facility] Address [address] [place] [address] Care Team Providers Name Role Phone Renee Catalan M.D. Primary Care Provider [phone] Reason for Visit Reason Comments Communication Encounter Details Date Type Department Care Team Description 04/06/2017 Clinical Communication Department of Tono Batista Communication Medicine, [place] Jennyfer Barrios [facility], in [address] [phone] Social History Tobacco Use Types Packs/Day Years [...] How often do you attend pentecostalism or buddhism services? 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 - 04/26/2017 4:08 PM CST Entered in error CE INVESTIGATOR documented in this encounter Plan of Treatment Not on filedocumented as of this encounter Visit Diagnoses Not on filedocumented in this encounter Additional Health Concerns Assessment Noted Time PHQ-9 Depression Total Score: 6 12/22/2016 10:26 AM CD T documented as of this encounter Care Teams Systems Checkout Mechanic Relationship Specialty Start Date End Date Renee Catalan M.D. PCP - General Family Medicine 04/11/17 07/18/[address] [phone] documented as of this encounter
--- OUTSIDE RECORDS SUMMARY | 2022-04-28 14:48 | XMS_ITS | Encounter Summary ---
:1950 Author Organization [facility] Address [address] [place] [address] Care Team Providers Name Role Phone Renee Catalan M.D. Primary Care Provider [phone] Encounter Details Date Type Department Care Team [...] How often do you attend druze or sabianism services? 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 documented in this encounter Results ANESTHESIOLOGY IMAGE EXAM (05/31/2017 8:14 AM HEARINGS REPORTER) Specimen (Source) Anatomical Collection Method Collection Time Re ceived Time Location / / Volume Laterality 05/31/2017 8:13 AM HEARINGS REPORTER Narrative [facility] - 05/31/2017 8:14 AM HEARINGS REPORTER This order has been created and auto-finalized [...] as of this encounter Care Teams Inspector Motor Vehicles Relationship Specialty Start Date End Date Renee Catalan M.D. PCP - General Family Medicine 04/11/17 07/18/[address] [phone] documented as of this encounter
--- OUTSIDE RECORDS SUMMARY | 2022-04-28 14:48 | XMS_ITS | Encounter Summary ---
:1950 Author Organization [facility] Address [address] [place] [address] Care Team Providers Name Role Phone Renee Catalan M.D. Primary Care Provider [phone] Encounter Details Date Type Department Care Team [...] How often do you attend presybeterian or synagogue services? 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 CLINICAL RESEARCH SPEC documented as of this encounter Plan of Treatment Not on filedocumented as of this encounter Procedures Procedure Name Priority Date/Time Associated Diagnosis Comme nts VASCULAR IMAGE EXAM Routine 04/19/2017 3:25 PM Re sults for this CLINICAL RESEARCH SPEC procedure are i n the results section. documented in this encounter Results VASCULAR IMAGE EXAM (04/19/2017 3:25 PM CLINICAL RESEARCH SPEC) Specimen (Source) Anatomical Collection Method Collection Time Re ceived Time Location / / Volume Laterality 04/19/2017 3:23 PM CLINICAL RESEARCH SPEC Narrative [facility] - 04/19/2017 3:25 PM CLINICAL RESEARCH SPEC This order has been created and auto-finalized [...] documented as of this encounter Care Teams Property Management Bookkeeper Relationship Specialty Start Date End Date Renee Catalan M.D. PCP - General Family Medicine 04/11/17 07/18/[address] [phone] documented as of this encounter
--- OUTSIDE RECORDS SUMMARY | 2022-04-28 14:48 | XMS_ITS | Encounter Summary ---
:1950 Author Organization [facility] Address [address] [place] [address] Care Team Providers Name Role Phone Renee Catalan M.D. Primary Care Provider [phone] Encounter Details Date Type Department Care Team [...] How often do you attend bahai or pentecostalism services? 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 PCP - General Family Medicine 04/11/17 07/18/[address] [phone] documented as of this encounter
--- OUTSIDE RECORDS SUMMARY | 2022-04-28 14:48 | XMS_ITS | Encounter Summary ---
:1950 Author Organization [facility] Address [address] [place] [address] Care Team Providers Name Role Phone Renee Catalan M.D. Primary Care Provider [phone] Encounter Details Date Type Department Care Team [...] How often do you attend taoism or latter-day services? 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 CARE PARTNER documented as of this encounter Medications at [...] times a day injection before meals. lancets [facility] Dispense item covered 0 08/23/2014 1 by [...] documented as of this encounter Care Teams [employer] Principal Relationship Specialty Start Date End Date Renee Catalan M.D. PCP - General Family Medicine 04/11/17 07/18/[address] [phone] documented as of this encounter
--- OUTSIDE RECORDS SUMMARY | 2022-04-28 14:48 | XMS_ITS | Encounter Summary ---
:1950 Author Organization [facility] Address [address] [place] [address] Care Team Providers Name Role Phone Renee Catalan M.D. Primary Care Provider [phone] Encounter Details Date Type Department Care Team [...] How often do you attend yazidism or yazidism services? 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 lancets [facility] Dispense item covered 0 08/23/2014 1 by [...] documented as of this encounter Care Teams Ornamental Ironworking Supervisor Relationship Specialty Start Date End Date Renee Catalan M.D. PCP - General Family Medicine 04/11/17 07/18/[address] [phone] documented as of this encounter
--- OUTSIDE RECORDS SUMMARY | 2022-04-28 14:48 | XMS_ITS | Encounter Summary ---
:1950 Author Organization [facility] Address [address] [place] [address] Care Team Providers Name Role Phone Renee Catalan M.D. Primary Care Provider [phone] Reason for Visit Reason Comments Follow-up tcm appointment for [facility] stay discharged on 04/05/2017 for critcal limb ischemia le ft leg Pre-op Exam for proceedure scheduled for 04/29/2017 at [facility] Appointment Request (Routine) - Closed Specialty Diagnoses / Procedures Referred By Contact Refer red To Contact Family Medicine Referral ID Status Reason Start Date Expiration Date Visits Requ ested Visits Authorized [id number] Closed 04/06/2017 10/03/2017 1 1 Encounter Details Date Type Department Care Team Description 04/11/2017 Office Visit Department of Family [place] Preop erative Exam (Primary Dx); Medicine, Renee Herndon, Athero 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 Never 03/25/2021 Do you [...] at Date Recorded Male 03/24/2021 8:13 PM INVESTIGATOR FRAUD documented as of this encounter Last Filed Vital Signs Vital Sign Reading Time Taken Comments Blood Pressure 90/62 04/11/2017 3:02 PM INVESTIGATOR FRAUD Pulse 64 04/11/2017 3:02 PM INVESTIGATOR FRAUD Temperature 35.7 ??C (96.3 ??F) 04/11/2017 3:02 PM INVESTIGATOR FRAUD Respiratory Rate 20 04/11/2017 3:02 PM INVESTIGATOR FRAUD Oxygen Saturation 95% 04/11/2017 3:02 PM INVESTIGATOR FRAUD room ai r Inhaled Oxygen Concentration - - Weight 74.9 kg (165 lb 2 oz) 04/11/2017 3:02 PM INVESTIGATOR FRAUD Height 173 cm (5' 8.11) 04/11/2017 3:02 PM INVESTIGATOR FRAUD Body Mass Index 25.03 04/11/2017 3:02 PM INVESTIGATOR FRAUD documented in this encounter H&P Notes Renee Catalan M.D. - 04/11/2017 3:00 PM CST CHIEF COMPLAINT/ REASON FOR VISIT TCM hospitalization followup and preoperative exam. Hospitalized at: [facility]. Admission date: 04/04/2017. Discharge date: 04/05/2017. Contacted by clinic nursing staff on: 04/06/2017. Proposed surgery date: 04/29/2017. Proposed surgery: Amputation of left great toe. Location: [facility]. HISTORY OF PRESENT ILLNESS Onesimo is a 67-year-old male who presents to the clinic today for above concerns. He was hospitalized 04/04-04/05/2017 at [facility] in [place] after undergoing left femoral artery endarterectomy with patch angioplasty and left endovascular superficial femoral artery stent x 2 on 04/04/2017. Since being discharged he has been doing well. Onesimo states that pain in his left leg has improved since surgery. He is tentatively scheduled for amputation of his left great toe on 04/29/2017 in [place]. He continues to smoke but has an [...] times a day before meals. ??? lancets [facility] [...] Allergies Allergen Reactions ??? Morphine Itching ??? Tkybegp-Sdk-Pla Reductase Inhibitors Myalgia SYSTEMS REVIEW Please see [...] is retired. 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 FAMILY HISTORY Family [...] Continue to follow with vascular medicine at [facility] as recommended. #2 Preoperative evaluation for surgery. [...] behalf by Marie Peterson, a trained medical surgery nurse. The creation of this record is based on the scribe's personal observations and the provider's statements to them. This document has been parul cked and approved by the attending provider. STIGATOR FRAUD documented in this encounter Plan of Treatment Not on filedocumented as of this encounter Procedures Procedure Name Priority Date/Time Associated Diagnosis Comme nts CBC WITH Routine 04/11/2017 4:15 Preoperative Exa m Results for this DIFFERENTIAL, B PM INVESTIGATOR FRAUD Atherosclerosis procedure are in Arteriosclerosis the results Obliterans Lower section. Extremity With Claudication Lef t (HCC) Anemia Iron Deficiency documented in this encounter Results (ABNORMAL) CBC with Differential (04/11/2017 4:15 PM INVESTIGATOR FRAUD) [facility] Method Time Signature Hemoglobin 10.7 (L) 13.2 - 04/11/2017 [facility] 16.6 g/dL 4:24 PM [facility] Hematocrit 32.3 (L) 38.3 - 04/11/2017 [facility] 48.6 % 4:24 PM [facility] Erythrocytes 3.32 (L) 4.35 - 04/11/2017 [facility] 5.65 4:24 PM INVESTIGATOR FRAUD [facility] x10(12)/L [facility]- [facility] MCV 97.3 78.2 - 04/11/2017 [facility] 97.9 fL 4:24 PM [facility] RBC Distrib Width 13.8 11.8 - 04/11/2017 [facility] 14.5 % 4:24 PM [facility] Platelet Count 395 (H) 135 - 317 04/11/2017 [facility] x10(9)/L 4:24 PM [facility] Leukocytes 15.0 (H) 3.4 - 9.6 04/11/2017 [facility] x10(9)/L 4:24 PM [facility] Neutrophils 9.68 (H) 1.56 - 04/11/2017 [facility] 6.45 4:24 PM INVESTIGATOR FRAUD [facility] x10(9)/L [facility] Lymphocytes 2.74 0.95 - 04/11/2017 [facility] 3.07 4:24 PM INVESTIGATOR F[facility] x10(9)/L [facility]- [facility] Monocytes 1.61 (H) 0.26 - 04/11/2017 [facility] 0.81 4:24 PM INVESTIGATOR [facility] x10(9)/L [facility]- [facility] Eosinophils 0.89 (H) 0.03 - 04/11/2017 [facility] 0.48 4:24 PM INVESTIGATOR [facility] x10(9)/L [facility]- [facility] Basophils 0.03 0.01 - 04/11/2017 [facility] 0.08 4:24 PM INVESTIGATOR [facility] x10(9)/L [facility]- [facility] Specimen Anatomical Collection Method Collection Time Receive d Time (Source) Location / / Volume Laterality Blood (Blood, 04/11/2017 4:15 PM 04/11/20 17 4:16 Venous) INVESTIGATOR FRAUD PM INVESTIGATOR FRAUD Renee Catalan M.D. LAB BLOOD ADD-ON Performing Organization Address City/State/ZIP Code Phon e Number [facility] [address] [place] [address] [facility]- [address] [place] [address] [facility] documented in this encounter Visit Diagnoses Diagnosis Preoperative Exam - Primary Atherosclerosis Arteriosclerosis Obliter ans Lower Extremity With Claudication Left (HCC) Anemia Iron Deficiency documented in this encounter Additional Health Concerns Assessment Noted Time PHQ-9 Depression Total Score: 6 12/22/2016 10:26 AM CD T documented as of this encounter Care Teams Asset Protection Assistant Relationship Specialty Start Date End Date Renee Catalan M.D. PCP - General Family Medicine 04/11/17 07/18/[address] [phone] documented as of this encounter
--- OUTSIDE RECORDS SUMMARY | 2022-04-28 14:48 | XMS_ITS | Encounter Summary ---
:1950 Author Organization [facility] Address [address] [place] [address] Care Team Providers Name Role Phone Renee Catalan M.D. Primary Care Provider [phone] Encounter Details Date Type Department Care Team Description 07/01/2017 Abstract Department of Family Medicine, Provider, Historical [facility], in [place], [place] [address] [place] [address] Social History Tobacco Use Types Packs/Day [...] How often do you attend sikh or adventism services? 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 PCP - General Family Medicine 04/11/17 07/18/[address] [phone] documented as of this encounter
--- OUTSIDE RECORDS SUMMARY | 2022-04-28 14:48 | XMS_ITS | Encounter Summary ---
:1950 Author Organization 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 Procedures FAM EST C.N.P. [address] [place] [phone] Referral ID Status Reason Start Date Expiration Date Visits Requ ested Visits Authorized [id number] Closed 02/25/2017 08/24/2017 1 1 Encounter Details Date Type Department Care Team Description 07/22/2017 Office Visit Department of [facility] Rosa Zacarias APRN, C.N.P. [address] [place] [phone] Hypertension And Chronic Kidney Disease Stage 1 To 4 (Primary Dx); Medicine, [place] Renee Catalan M.D. [address] [place] [phone] Diabetes Mellitus Type 2 With Diabetic P olyneuropathy (HCC); Clinic, in [place], Diabet es Mellitus Type 2 With Other Circulatory Complication Hyperglycemic (HCC); [place] Hypertension Essential Prima ry; [address] Hyperlipidemia [facility] [place] [phone] Social History Tobacco Use Types Packs/Day Years [...] How often do you attend zoroastrianism or baptism services? 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 OPERATOR documented as of this encounter Last Filed Vital Signs Vital Sign Reading Time Taken Comments Blood Pressure 108/80 07/22/2017 11:04 AM DUMPSTER OPERATOR Pulse 76 07/22/2017 11:04 AM DUMPSTER OPERATOR Temperature 36.9 ??C (98.4 ??F) 07/22/2017 11:04 AM DUMPSTER OPERATOR Respiratory Rate 16 07/22/2017 11:04 AM DUMPSTER OPERATOR Oxygen Saturation - - Inhaled Oxygen Concentration - - Weight 77 kg (169 lb 12.1 oz) 07/22/2017 11:04 AM DUMPSTER OPERATOR Height 173 cm (5' 8.11) 07/22/2017 11:04 AM DUMPSTER OPERATOR Body Mass Index 25.73 07/22/2017 11:04 AM DUMPSTER OPERATOR documented in this encounter Progress Notes [...] He follows with a pain clinic in [place]. He occasionally needs to take short- acting [...] Rash itchy ??? Pregabalin Anaphylaxis swell ??? Fxoyglj-Hgy-Mfk Reductase Inhibitors Myalgia PAST MEDICAL / SURGICAL [...] popliteal and /or tibial artery angioplasty/stent Notes: [id number] ??? FEMORAL ENDARTERECTOMY, PATCH ANGIOPLASTY/INTERPOSITION GRAFT WITH/WITHOUT PROFUNDOPLASTY Left 04/04/2017 Femoral endarterectomy, patch angioplasty/interposition graft with/without profundoplasty Notes: [id number] ??? NM SESTAMIBI W/DOBUTAMINE 1 DA postive [...] disease He follows with Vascular medicine at [facility]. #3 Hyperlipidemia When he returns for [...] He follows with a pain clinic in [place]. Follow up The patient will contact the clinic with any new or worsening symptoms. This document serves as a record of services personally performed by Renee Lacy MD. It was created on their behalf by Marie Peterson, a trained certified medical transcriptionist. The creation of this record is based on the scribe's personal observations and the provider's statements to them. This document has been parul cked and approved by the attending provider. documented in this encounter Plan of Treatment Not on filedocumented as of this encounter Results AST (Aspartate Aminotransferase) (07/26/2017 8:55 AM CDT) [facility] Method Time Signature Aspartate 26 8 - 48 07/26/2017 [facility] Aminotransferase U/L 11:01 AM CDT [facility] [place] [facility] Specimen Anatomical Collection Method Collection Time Receive d Time (Source) Location / / Volume Laterality Blood (Blood, 07/26/2017 8:55 AM 07/27/19 18 Venous) CDT 10:44 AM CDT Renee Catalan M.D. LAB BLOOD ADD-ON Performing Organization Address [facility] Phon e Number [facility] [address] [place] [address] LAB (ABNORMAL) Hemoglobin A1c (07/26/2017 8:55 AM CDT) athologist Signature Hemoglobin A1c, 9.1 (H) 4.2 - 5.6 07/26/2017 [facility] B % 11:19 AM CDT [facility] Comment: Hemoglobin A1c values greater than or eq ual to 6.5 percent are diagnostic for diabetes mellitus. ?? Diagnosis should be confirmed by repeat testing. ??In diabet ic patients, HbA1c goals should be [facility] provider. Specimen Anatomical Collection Method Collection Time Receive d Time (Source) Location / / Volume Laterality Blood (Blood, 07/26/2017 8:55 AM 07/27/19 18 Venous) CDT 10:44 AM CDT Renee Catalan M.D. LAB BLOOD ADD-ON Performing Organization Address [facility]/ZIP Code Phon e Number [facility] [address] [place] [address] LAB (ABNORMAL) Lipid Panel (07/26/2017 8:55 AM CDT) P athologist Signature Cholesterol, 148 mg/dL 07/26/2017 [facility] Total 11:01 AM CDT [facility] Comment: ----REFERENCE VALUE---- Desirable: < 200 Borderline high: 200 - 239 High: > or = 240 Triglycerides 249 (H) mg/dL 07/26/2017 11:01 AM CDT [facility] [place] [facility] Comment: ----REFERENCE VALUE---- Normal: <150 Borderline high: 150-199 High: 200-499 Very high: > or =500 Cholesterol, HDL, S 40 >=40 mg/dL 07/26/2017 11:01 AM CDT [facility] [place] [facility] Calculated LDL 58 mg/dL 07/26/2017 11:01 AM CDT [facility] Comment: ----REFERENCE VALUE---- Desirable: <100 Above Desirable: 100-129 Borderline high: 130-159 High: 160-189 Very high: > or =190 Cholesterol, Non-HDL, 108 mg/dL 07/26/2017 11:01 A M CDT [facility] [place] [place] [facility] Comment: ----REFERENCE VALUE---- Desirable: <130 Above Desirable: 130-159 Borderline high: 160-189 High: 190-219 Very high: > or =220 Specimen Anatomical Collection Method Collection Time Receive d Time (Source) Location / / Volume Laterality Blood (Blood, 07/26/2017 8:55 AM 07/27/19 18 Venous) CDT 10:44 AM CDT Renee Catalan M.D. LAB BLOOD ADD-ON Performing Organization Address City/State/ZIP Code Phon e Number [facility] [address] [place] [address] LAB (ABNORMAL) BMP (Basic Metabolic Panel) (07/26/2017 8:55 AM CDT) Analysis Performed At Patho logist Time Signature Potassium, S 5.1 3.6 - 5.2 07/26/2017 [facility] mmol/L 11:01 AM [facility] Sodium, S 142 135 - 145 07/26/2017 [facility] mmol/L 11:01 AM [facility] Chloride, S 99 98 - 107 07/26/2017 [facility] mmol/L 11:01 AM [facility] Bicarbonate, S 30 (H) 22 - 29 07/26/2017 [facility] mmol/L 11:01 AM [facility] Anion Gap 13 7 - 15 07/26/2017 [facility] 11:01 AM [facility] BUN (Blood Urea 26 (H) 8 - 24 07/26/2017 [facility] Nitrogen), S mg/dL 11:01 AM [facility] Creatinine 1.99 (H) 0.74 - 07/26/2017 [facility] 1.35 mg/dL 11:01 AM [facility] eGFR 34 (L) >=60 07/26/2017 [facility] Non-Black/Afric mL/min/BSA 11:01 AM [facility] Comment: ----ADDITIONAL INFORMATION---- Estimated GFR calculated using the 2009 CKD_EPI creatinine equation. eGFR Black/ 40 (L) >=60 mL/min/BSA 07/26/2017 11:[address] [facility] Comment: ----ADDITIONAL INFORMATION---- Estimated GFR calculated using the 2009 CKD_EPI creatinine equation. Calcium, Total, S 9.2 8.9 - 10.1 mg/dL 07/26/2017 11:[address] [facility] Glucose, S 135 70 - 140 mg/dL 07/26/2017 11:[address] [facility] Specimen Anatomical Collection Method Collection Time Receive d Time (Source) Location / / Volume Laterality Blood (Blood, 07/26/2017 8:55 AM 07/27/19 18 Venous) CDT 10:44 AM CDT Renee Catalan M.D. LAB BLOOD ADD-ON Performing Organization Address City/State/ZIP Code Phon e Number [facility] [employer] [address] [place] [address] LAB (ABNORMAL) Microalbumin, Random, Urine (07/26/2017 8:52 AM CDT) [facility] gist Method Time Signature Microalbumin 81.2 mg/L 07/26/2017 [facility] 11:34 AM [facility] Creatinine 53 mg/dL 07/26/2017 [facility] 11:34 AM [facility] Albumin/Creatinin 153 (H) <17 mg/g 07/26/2017 [facility] e Ratio 11:34 AM [facility] Specimen Anatomical Collection Method Collection Time Receive d Time (Source) Location / / Volume Laterality Urine (Urine, 07/26/2017 8:52 AM 07/27/19 18 Clean Catch) CDT 10:44 AM CDT Renee Catalan M.D. LAB URINE ORDERABLES Performing Organization Address City/State/ZIP Code Phon e Number [facility] [address] [place] [phone] LAB documented in this encounter Visit Diagnoses [...]
--- OUTSIDE RECORDS SUMMARY | 2022-04-28 14:48 | XMS_ITS | Encounter Summary ---
:1950 Author Organization [facility] Address [address] [place] [address] Care Team Providers Name Role Phone Renee Catalan M.D. Primary Care Provider Reason for Visit Reason Onset Date Comments hospital discharge phone call 04/06/2017 Encounter Details Date Type Department Care Team Description 04/06/2017 Clinical Communication Department of [facility] [place] discharge Family Medicine, Mayda Barrios R.N. phone [facility], in [address] [place] [phone] Social History Tobacco Use Types Packs/Day Years [...] How often do you attend yazidi or jewish services? 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 Blood sugar is hosp were in [...] 04-29-17. Post-Hospital Assessment: Areas for hospital feedback: R SALES SUPPORT WORKER documented in this encounter Plan of Treatment Not on filedocumented as of this encounter Visit Diagnoses Not on filedocumented in this encounter Additional Health Concerns Assessment Noted Time PHQ-9 Depression Total Score: 6 12/22/2016 10:26 AM CD T documented as of this encounter Care Teams Denial Management Representative Relationship Specialty Start Date End Date Renee Catalan M.D. PCP - General Family Medicine 04/06/17 04/06/17 [address], [place] [phone] documented as of this encounter
--- OUTSIDE RECORDS SUMMARY | 2022-04-28 14:48 | XMS_ITS | Encounter Summary ---
:1950 Author Organization [facility] Address [address] [place] [address] Care Team Providers Name Role Phone Renee Catalan M.D. Primary Care Provider Reason for Visit Reason Comments Med Refill Encounter Details Date Type Department Care Team Description 04/12/2017 Refill Department of Family Medicine, Bambi Adler Med Refill [facility], in [place] Phillips M.D. [place] [address] [place] [address] [place], [place] [phone] Social History Tobacco Use Types Packs/Day Years [...] at Date Recorded Male 03/24/2021 8:13 PM LAY OUT FORMER documented as of this encounter Plan of Treatment Not on filedocumented as of this encounter Visit Diagnoses Not on filedocumented in this encounter Additional Health Concerns Assessment Noted Time PHQ-9 Depression Total Score: 6 12/22/2016 10:26 AM CD T documented as of this encounter Care Teams Excavating Contractor Relationship Specialty Start Date End Date Renee Catalan M.D. PCP - General Family Medicine 04/11/17 07/18/[address] [phone] documented as of this encounter
--- OUTSIDE RECORDS SUMMARY | 2022-04-28 14:48 | XMS_ITS | Encounter Summary ---
:1950 Author Organization [facility] Address [address] [place] [address] Care Team Providers Name Role Phone Renee Catalan M.D. Primary Care Provider [phone] Encounter Details Date Type Department Care Team [...] How often do you attend baptist or jain services? Never 03/25/2021 Do you [...] at Date Recorded Male 03/24/2021 8:13 PM HARVESTER OPERATOR documented as of this encounter Plan of Treatment Not on filedocumented as of this encounter Procedures Procedure Name Priority Date/Time Associated Diagnosis Comme nts VASCULAR IMAGE EXAM Routine 05/18/2017 7:45 AM Re sults for this HARVESTER OPERATOR procedure are i n the results section. documented in this encounter Results VASCULAR IMAGE EXAM (05/18/2017 7:45 AM HARVESTER OPERATOR) Specimen (Source) Anatomical Collection Method Collection Time Re ceived Time Location / / Volume Laterality 05/18/2017 7:43 AM HARVESTER OPERATOR Narrative IIMS - 05/18/2017 8:23 AM HARVESTER OPERATOR This order has been created and auto-finalized to support the import of images acquired without order. The clini ammy documentation to support these images can be found on the encounter dioni t produced images. Provider Not In System IMG NON RAD IMAGING PROCEDUR ES Performing Organization Address City/State/ZIP Code Phon e Number IIWV IIMS NA documented in this encounter Visit Diagnoses Not on filedocumented in this encounter Additional Health Concerns Assessment Noted Time PHQ-9 Depression Total Score: 6 12/22/2016 10:26 AM CD T documented as of this encounter Care Teams Java Developer With Security Clearance Relationship Specialty Start Date End Date Renee Catalan M.D. PCP - General Family Medicine 04/11/17 07/18/[address] [address] documented as of this encounter
--- OUTSIDE RECORDS SUMMARY | 2022-04-28 14:48 | XMS_ITS | Encounter Summary ---
:1950 Author Organization [facility] Address [address] [place] [address] Care Team Providers Name Role Phone Renee Catalan M.D. Primary Care Provider [phone] Encounter Details Date Type Department Care Team [...] How often do you attend confucianism or confucianist services? 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 documented as of this encounter Last Filed Vital Signs Vital Sign Reading Time Taken Comments Blood Pressure 147/64 05/27/2017 3:35 PM WEB PRODUCTION DESIGNER Pulse 62 05/27/2017 10:45 AM WEB PRODUCTION DESIGNER Temperature - - Respiratory Rate 16 05/27/2017 3:35 PM WEB PRODUCTION DESIGNER Oxygen Saturation - - Inhaled Oxygen Concentration - - Weight 75.6 kg (166 lb 10.7 oz) 05/27/2017 6:19 AM WEB PRODUCTION DESIGNER Height 176 cm (5' 9.29) 05/27/2017 6:19 AM WEB PRODUCTION DESIGNER Body Mass Index 24.41 05/27/2017 6:19 AM WEB PRODUCTION DESIGNER documented in this encounter Medications at Time [...] times a day injection before meals. lancets [facility] Dispense item covered 0 08/23/2014 1 by [...] as of this encounter Care Teams Railroad Dispatcher Relationship Specialty Start Date End Date Renee Catalan M.D. PCP - General Family Medicine 04/11/17 07/18/[address] [address] documented as of this encounter
--- OUTSIDE RECORDS SUMMARY | 2022-04-28 14:48 | XMS_ITS | Encounter Summary ---
:1950 Author Organization [facility] Address [address] [place] [address] Care Team Providers Name Role Phone Renee Catalan M.D. Primary Care Provider [phone] Encounter Details Date Type Department Care Team [...] How often do you attend mosque or orthodox services? Never 03/25/2021 Do you [...] at Date Recorded Male 03/24/2021 8:13 PM TRANSFORMATION ARCHITECT documented as of this encounter Plan of Treatment Not on filedocumented as of this encounter Procedures Procedure Name Priority Date/Time Associated Diagnosis Comme nts VASCULAR SURGERY Routine 05/27/2017 4:10 PM Resul ts for this IMAGE EXAM TRANSFORMATION ARCHITECT procedure are i n the results section. documented in this encounter Results VASCULAR SURGERY IMAGE EXAM (05/27/2017 4:10 PM TRANSFORMATION ARCHITECT) Specimen (Source) Anatomical Collection Method Collection Time Re ceived Time Location / / Volume Laterality 05/27/2017 4:07 PM TRANSFORMATION ARCHITECT Narrative IIMS - 05/27/2017 4:10 PM TRANSFORMATION ARCHITECT This order has been created and auto-finalized to support the import of images acquired without order. The clini ammy documentation to support these images can be found on the encounter dioni t produced images. Provider Not In System IMG NON RAD IMAGING PROCEDUR ES Performing Organization Address City/State/ZIP Code Phon e Number IICA IIMS NA documented in this encounter Visit Diagnoses Not on filedocumented in this encounter Additional Health Concerns Assessment Noted Time PHQ-9 Depression Total Score: 6 12/22/2016 10:26 AM CD T documented as of this encounter Care Teams Library Clerk Relationship Specialty Start Date End Date Renee Catalan M.D. PCP - General Family Medicine 04/11/17 07/18/[address] [address] documented as of this encounter
--- OUTSIDE RECORDS SUMMARY | 2022-04-28 14:48 | XMS_ITS | Encounter Summary ---
:1950 Author Organization [facility] Address [address] [place] [address] Care Team Providers Name Role Phone Renee Catalan M.D. Primary Care Provider [phone] Encounter Details Date Type Department Care Team Description 05/04/2017 Abstract Department of Family Medicine in [facility] , [address] [address] Social History Tobacco Use [...] How often do you attend alevism or orthodox services? 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 PCP - General Family Medicine 04/11/17 07/18/[address] [phone] documented as of this encounter
--- OUTSIDE RECORDS SUMMARY | 2022-04-28 14:48 | XMS_ITS | Encounter Summary ---
:1950 Author Organization [facility] Address [address] [place] [address] Care Team Providers Name Role Phone Renee Catalan M.D. Primary Care Provider [phone] Encounter Details Date Type Department Care Team [...] at Date Recorded Male 03/24/2021 8:13 PM STAFF NURSE MIDWIFE documented as of this encounter Plan of Treatment Not on filedocumented as of this encounter Procedures Procedure Name Priority Date/Time Associated Diagnosis Comme nts VASCULAR IMAGE EXAM Routine 04/19/2017 4:10 PM Re sults for this STAFF NURSE MIDWIFE procedure are i n the results section. documented in this encounter Results VASCULAR IMAGE EXAM (04/19/2017 4:10 PM STAFF NURSE MIDWIFE) Specimen (Source) Anatomical Collection Method Collection Time Re ceived Time Location / / Volume Laterality 04/19/2017 4:10 PM STAFF NURSE MIDWIFE Narrative IIMS - 04/19/2017 4:12 PM STAFF NURSE MIDWIFE This order has been created and auto-finalized [...] as of this encounter Care Teams It Application Support Analyst Relationship Specialty Start Date End Date eRnee Catalan M.D. PCP - General Family Medicine 04/11/17 07/18/[address] [address] documented as of this encounter
--- OUTSIDE RECORDS SUMMARY | 2022-04-28 14:49 | XMS_ITS | Encounter Summary ---
:1950 Author Organization [facility] Address [address] [place] [address] Care Team Providers Name Role Phone Irma Zacarias APRN C.N.P. Primary Care Provider [phone] Encounter Details Date Type Department Care Team [...] How often do you attend denominational or church services? Never 03/25/2021 Do you [...] at Date Recorded Male 03/24/2021 8:13 PM VERIFY REP documented as of this encounter Medications at [...] times injection a day before meals. [facility] Dispense item 0 08/23/2014 9 covered by [...] documented as of this encounter Care Teams Slip Sheeter Relationship Specialty Start Date End Date Irma Zacarias, JULIÁN, C.N.P. PCP - General 10/28/16 04/05/[address] [address] documented as of this encounter
--- OUTSIDE RECORDS SUMMARY | 2022-04-28 14:49 | XMS_ITS | Encounter Summary ---
:1950 Author Organization [facility] Address [address] [place] [address] Care Team Providers Name Role Phone Irma Zacarias APRN C.N.P. Primary Care Provider [phone] Encounter Details Date Type Department Care Team [...] How often do you attend pentecostal or holiness services? 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 documented in this encounter Results VASCULAR IMAGE EXAM (03/28/2017 10:50 AM ECHOCARDIOGRAPHY TECHNOLOGIST) Specimen (Source) Anatomical Collection Method Collection Time Re ceived Time Location / / Volume Laterality 03/28/2017 10:49 AM ECHOCARDIOGRAPHY TECHNOLOGIST Narrative IIMS - 03/28/2017 11:09 AM ECHOCARDIOGRAPHY TECHNOLOGIST This order has been created and [...] documented as of this encounter Care Teams Mains And Service Supervisor Relationship Specialty Start Date End Date Irma Zacarias, PORTABLE GRINDING MACHINE OPERATOR, C.N.P. PCP - General 10/28/16 04/05/17 [address] [phone] documented as of this encounter
--- OUTSIDE RECORDS SUMMARY | 2022-04-28 14:49 | XMS_ITS | Encounter Summary ---
:1950 Author Organization [facility] Address [address] [place] [address] Care Team Providers Name Role Phone Irma Zacarias APRN C.N.P. Primary Care Provider [phone] Encounter Details Date Type Department Care Team Description 02/17/2017 Hospital Encounter HX [facility] ULTRASOUND Cheri Arguello M.D. 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 _no Other ( x--_ ) return call not required From: CHERI VELAZQUEZ MD To: FB Bambi Nurse; Sent: 02/17/2017 23:23:59 CDT Please notify Onesimo that the ultrasound of the abdomen did not show any aneurysm. Source: [facility] POWERCHART Document Id: [id number] documented in this encounter Plan of Treatment [...] distal ICA in ac cordance with [place] Symptomatic Carotid Endarterectomy Trial (NASCET). Procedure Note [...] distal ICA in ac cordance with [place] Symptomatic Carotid Endarterectomy Trial (NASCET). IMPRESSION: 1. [...] as of this encounter Care Teams Stock Drier Tender Relationship Specialty Start Date End Date Irma Zacarias, JULIÁN, C.N.P. PCP - General 10/28/16 04/05/17 [address], [place] [address] documented as of this encounter
--- OUTSIDE RECORDS SUMMARY | 2022-04-28 14:49 | XMS_ITS | Encounter Summary ---
:1950 Author Organization [facility] Address [address] [place] [address] Care Team Providers Name Role Phone Irma Zacarias APRN C.N.P. Primary Care Provider [phone] Encounter Details Date Type Department Care Team [...] How often do you attend rastafarian or presybeterian services? 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 lancets [facility] Dispense item 0 08/23/2014 9 [...] as of this encounter Care Teams Manager Distribution Center Relationship Specialty Start Date End Date Irma Zacarias, JULIÁN, C.N.P. PCP - General 10/28/16 04/05/[address] [place] [address] documented as of this encounter
--- OUTSIDE RECORDS SUMMARY | 2022-04-28 14:49 | XMS_ITS | Encounter Summary ---
:1950 Author Organization [facility] Address [address] [place] [address] Care Team Providers Name Role Phone Irma Zacarias APRN C.N.P. Primary Care Provider [phone] Encounter Details Date Type Department Care Team Description 02/10/2017 Hospital Encounter HX NO MAPPING Renee Catalan M.D. [address] [place], [place] [address] (Wo rk) Social History [...] often do you attend jehovah's witness or roman catholic services? 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 lancets [facility] [...] Coding Summary-Paper Based CODING DATE: 02/23/2017 FINAL [facility] STATUS: * Discharged to Home or Self [...] VENTURA Date Saved: 02/23/2017 01:51 pm Source: [facility] [place] Document Id: [id number] documented in this encounter Plan of Treatment Not on filedocumented as of this encounter Visit Diagnoses Not on filedocumented in this encounter Additional Health Concerns Assessment Noted Time PHQ-9 Depression Total Score: 6 12/22/2016 10:26 AM CD T documented as of this encounter Care Teams Single Needle Tufting Machine Operator Relationship Specialty Start Date End Date Irma Zacarias, SPEECH TEACHER, C.N.P. PCP - General 10/28/16 04/05/17 [address] [place] [address] documented as of this encounter
--- OUTSIDE RECORDS SUMMARY | 2022-04-28 14:49 | XMS_ITS | Encounter Summary ---
:1950 Author Organization [facility] Address [address] [place] [address] Care Team Providers Name Role Phone Renee Catalan M.D. Primary Care Provider Encounter Details Date Type Department Care Team Description 03/24/2017 Abstract Department of Family Medicine, Provider, Historical [facility], in [place], [place] [address] [facility], [place] [phone] Social History Tobacco Use Types Packs/Day [...] How often do you attend zoroastrianism or advent services? 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 PCP - General Family Medicine 04/11/17 07/18/[address] [address] documented as of this encounter
--- OUTSIDE RECORDS SUMMARY | 2022-04-28 14:49 | XMS_ITS | Encounter Summary ---
:1950 Author Organization [facility] Address [address] [place] [address] Care Team Providers Name Role Phone Irma Zacarias APRN C.N.P. Primary Care Provider [phone] Encounter Details Date Type Department Care Team Description 03/04/2017 Hospital Encounter HX [facility] Shawn Concepcion M.D. [address] [place], [place] [phone] (Wo rk) Social History [...] How often do you attend druze or taoism services? 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 lancets [facility] Dispense item 0 08/23/2014 9 covered by [...] Signature Glucose, POCT, 126 70 - 140 [facility] B MG/DL [facility] - [facility] Specimen Anatomical Collection Method Collection Time Receive d Time (Source) Location / / Volume Laterality 03/04/2017 2:05 PM 7 2:05 CDT PM CDT Historical Provider LAB POCT ORDERABLES-MANUAL Performing Organization Address City/State/ZIP Code Phon e Number [facility] - [address] [place], [place] [address] [facility] V&IRAD Vascular & Intervention (03/04/2017 [...] stenosis was balloon dilated with a 5mm SLIVER CUTTER balloon. Direct fluoroscopic guidance was then used [...] ?? [phone] 04-Mar-2017 17:35 ?Arely Atkins MD [phone] 04-Mar-2017 17:35 Narrative 03/04/2017 5:35 PM CDT 04-Mar-2017 13:39:00 ??Exam: V&IRAD Vascular & Intervention Indications: PELVIC ARTERIOGRAM WITH SLIVER CUTTER /STENTING OF ILIAC ARTERYS;PAD, claudication ORIGINAL REPORT - 04-Mar-2017 17:35:00 V&IRAD Vascular & Intervention: Procedure Note Ottoniel Concepcion M.D. - 08/10/2017Fo rmatting of this note might be different from the original. 04-Mar-2017 13:39:00 Exam: V&IRAD Vascul ar & Intervention Indications: PELVIC ARTERIOGRAM WITH SLIVER CUTTER /STENTING OF ILIAC ARTERYS;PAD, claudication ORIGINAL REPORT [...] stenosis was balloon dilated with a 5mm SLIVER CUTTER balloon. Direct fluoroscopic guidance was then used [...] minutes. Electronically signed by: Bj Concepcion MD [phone] 04-Mar-2017 17 :35 Arely Atkins MD [phone] 04-Mar-2017 17:35 Dino Lindsey M.D. IMG IR PROCEDURES (ABNORMAL) Glucose, POCT (03/04/2017 9:07 AM CDT) [facility] Method Time Signature Last Intake NPO [facility] Glucose, 169 (H) 70 - 140 [facility] POCT, B MG/DL [facility] - [facility] Sample Site, Capillary [facility] Blood Gas, LABORATORIES - POCT [facility] Specimen Anatomical Collection Method Collection Time Receive d Time (Source) Location / / Volume Laterality 03/04/2017 9:07 AM 7 9:07 CDT AM CDT Historical Provider LAB POCT ORDERABLES-MANUAL Performing Organization Address City/[facility]/ZIP Code Phon e Number [facility] - [address] [place], [place] [address] [facility] ECG 12 Lead (03/04/2017 7:18 AM CDT) Specimen (Source) Anatomical Collection Method Collection Time Re ceived Time Location / / Volume Laterality 03/04/2017 7:18 AM CDT Narrative HISTORICAL [facility] IMAGING CONVERSION - 7:23 AM CDT 04Mar2017 07:18 VENTRICULAR RATE 64 Normal sinus rhythm Right bundle branch block No previous ECGs available [id number]^BECKY BONILLA^CANDY Procedure Note Candy Araujo M.D. - 08/04/2017Form atting of this note might be different from the original. 04Mar2017 07:18 VENTRICULAR RATE 64 Normal sinus rhythm Right bundle branch block No previous ECGs available [id number]^BECKY BONILLA^CANDY Ottoniel Concepcion M.D. ECG ORDERABLES Performing Organization Address City/[facility]/ZIP Code Phon e Number HX MIGUE CONVERSION HISTORICAL [facility] IMAGING CONVERSION (ABNORMAL) Glucose, POCT (03/04/2017 7:08 AM CDT) [facility] gist Method Time Signature Glucose, 214 (H) 70 - 140 [facility] POCT, B MG/DL [facility] - [facility] Sample Site, Capillary [facility] Blood Gas, LABORATORIES - POCT [facility] Last Intake NPO [facility] Specimen Anatomical Collection Method Collection Time Receive d Time (Source) Location / / Volume Laterality 03/04/2017 7:08 AM 7 7:08 CDT AM CDT Historical Provider LAB POCT ORDERABLES-MANUAL Performing Organization Address City/[facility]/ZIP Code Phon e Number [facility] - [address] [place], [place] [address] [facility] documented in this encounter Visit Diagnoses Not on filedocumented in this encounter Additional Health Concerns Assessment Noted Time PHQ-9 Depression Total Score: 6 12/22/2016 10:26 AM CD T documented as of this encounter Care Teams Ems Educator Relationship Specialty Start Date End Date Irma Zacarias, JULIÁN, C.N.P. PCP - General 10/28/16 04/05/17 [address] [place] [address] documented as of this encounter
--- OUTSIDE RECORDS SUMMARY | 2022-04-28 14:49 | XMS_ITS | Encounter Summary ---
:[address] [facility] Address [address] [place] [address] Care Team Providers Name Role Phone Irma Zacarias APRN C.N.P. Primary Care Provider [phone] Encounter Details Date Type Department Care Team Description 04/04/2017 Hospital Encounter HX NO MAPPING Oracio Dougherty C [address] [place], [place] [phone] Social History Tobacco Use [...] How often do you attend cheondoism or church services? Never 03/25/2021 Do you [...] at Date Recorded Male 03/24/2021 8:13 PM ORACLE EBS CONSULTANT documented as of this encounter Last Filed Vital Signs Vital Sign Reading Time Taken Comments Blood Pressure 136/66 04/04/2017 6:00 AM ORACLE EBS CONSULTANT Pulse 63 04/04/2017 6:00 AM ORACLE EBS CONSULTANT Temperature - - Respiratory Rate 18 04/04/2017 6:00 AM ORACLE EBS CONSULTANT Oxygen Saturation - - Inhaled Oxygen Concentration - - Weight 73.8 kg (162 lb 11.2 oz) 04/04/2017 6:00 AM ORACLE EBS CONSULTANT Height 175 cm (5' 8.9) 04/04/2017 6:00 AM ORACLE EBS CONSULTANT Body Mass Index 24.1 04/04/2017 6:00 AM ORACLE EBS CONSULTANT documented in this encounter Medications at Time [...] documented as of this encounter Care Teams Adoption Agent Relationship Specialty Start Date End Date Irma Zacarias, JULIÁN, C.N.P. PCP - General 10/28/16 04/05/[address] [address] documented as of this encounter
--- OUTSIDE RECORDS SUMMARY | 2022-04-28 14:49 | XMS_ITS | Encounter Summary ---
:1950 Author Organization [facility] Address [address] [place] [address] Care Team Providers Name Role Phone Irma Zacarias APRN, C.N.P. 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 lancets [facility] Dispense item 0 08/23/2014 9 covered by [...] documented as of this encounter Care Teams Councillor [employer] Relationship Specialty Start Date End Date Irma Zacarias APRN, C.N.P. PCP - General 10/28/16 04/05/[address] [phone] documented as of this encounter
--- OUTSIDE RECORDS SUMMARY | 2022-04-28 14:49 | XMS_ITS | Encounter Summary ---
:1950 Author Organization [facility] Address [address] [place] [address] Care Team Providers Name Role Phone Irma Zacarias APRN, C.N.P. Primary Care Provider [phone] Encounter Details Date Type Department Care Team Description 03/24/2017 Refill Department of Family Medicine, Giselle Zacarias APRN, [facility], [place] [address] [place] [address] [place] [address] [phone] Social History Tobacco Use Types Packs/Day Years [...] How often do you attend mu-ism or nondenominational services? 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 - 03/24/2017 11:09 AM HOUSE STEWARD/STEWARDESS Refill request received from Lillie Phillips for pen needles. Pended E STEWARD/STEWARDESS documented in this encounter Plan of Treatment Not on filedocumented as of this encounter Visit Diagnoses Not on filedocumented in this encounter Additional Health Concerns Assessment Noted Time PHQ-9 Depression Total Score: 6 12/22/2016 10:26 AM CD T documented as of this encounter Care Teams Sr. Merchandise Planner Relationship Specialty Start Date End Date Irma Zacarias, JULIÁN, C.N.P. PCP - General 10/28/16 04/05/17 [address], [place] [phone] documented as of this encounter
--- OUTSIDE RECORDS SUMMARY | 2022-04-28 14:49 | XMS_ITS | Encounter Summary ---
:1950 Author Organization [facility] Address [address] [place] [address] Care Team Providers Name Role Phone Irma Zacarias APRN C.N.P. Primary Care Provider [phone] Encounter Details Date Type Department Care Team [...] How often do you attend rastafari or moravian services? 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 PCP - General 10/28/16 04/05/[address] [id number] documented as of this encounter
--- OUTSIDE RECORDS SUMMARY | 2022-04-28 14:49 | XMS_ITS | Encounter Summary ---
:1950 Author Organization [facility] Address [address] [place] [address] Care Team Providers Name Role Phone Irma Zacarias APRN C.N.P. Primary Care Provider [phone] Encounter Details Date Type Department Care Team Description 02/17/2017 Hospital Encounter HX [facility] ULTRASOUND Renee Arguello M.D. [address] [place] [phone] (Wo rk) Social History Tobacco [...] How often do you attend muslim or muslim services? Never 03/25/2021 Do you [...] Recorded Male 03/24/2021 8:13 PM PHYSICIAN PRACTICE CONSULTANT documented as of this encounter Last [...] injection a day before meals. lancets [facility] [...] documented as of this encounter Care Teams Frothing Machine Operator Relationship Specialty Start Date End Date Irma Zacarias, JULIÁN, C.N.P. PCP - General 10/28/16 04/05/[address] [phone] documented as of this encounter
--- OUTSIDE RECORDS SUMMARY | 2022-04-28 14:49 | XMS_ITS | Encounter Summary ---
:1950 Author Organization [facility] Address [address] [place] [address] Care Team Providers Name Role Phone Irma Zacarias APRN C.N.P. Primary Care Provider [phone] Encounter Details Date Type Department Care Team Description 04/04/2017 - 04/05/2017 [facility] Social History Tobacco Use Types [...] How often do you attend quaker or adventism services? 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 Pulse 87 04/05/2017 3:30 PM Value from [facility]. [employer]UEPRINT ASSEMBLER Temperature - - Respiratory Rate 20 04/05/2017 3:17 PM Value from C [facility]. BL[employer]PRINT ASSEMBLER Oxygen Saturation - - Inhaled Oxygen - - Concentration Weight 74.4 kg (164 lb 0.4 04/04/2017 4:50 PM Value fro m [facility]. oz) BLUEPRINT ASSEMBLER Height 176 cm (5' 9.29) 04/04/2017 7:52 AM Vital si gn result BL[employer]PRINT [employer]ER from [facility]. Body Mass Index 24.02 04/04/2017 7:52 AM BLUEPRINT ASSEMBLER documented in this encounter Medications at Time [...] times injection a day before meals. [facility] [...] Routine 04/05/2017 11:43 Results for this AM BLUEPRINT ASSEMBLER procedure are i n the results section. GLUCOSE POCT, B Routine 04/05/2017 6:50 AM Result s for this [employer]UEPRINT ASSEMBLER procedure are i n the results section. ELECTROLYTE (CHEM 4) Routine 04/05/2017 3:42 AM R esults for this PANEL, S/P BLUEPRINT ASSEMBLER procedure are i n the results section. CBC WITHOUT Routine 04/05/2017 3:42 AM Results f or this DIFFERENTIAL, B BLUEPRINT ASSEMBLER procedure ar e in the results section. GLUCOSE POCT, B Routine 04/04/2017 9:51 PM Result s for this [employer]UEPRINT ASSEMBLER procedure are i n the results section. CARDIAC BIOMARKER Routine 04/04/2017 5:04 PM Resu lts for this PANEL, S BLUEPRINT ASSEMBLER procedure are i n the results section. GLUCOSE POCT, B Routine 04/04/2017 4:50 PM Result s for this [employer]UEPRINT ASSEMBLER procedure are i n the results section. GLUCOSE POCT, B Routine 04/04/2017 3:02 PM Result s for this [employer]UEPRINT ASSEMBLER procedure are i n the results section. ECG Routine 04/04/2017 2:34 PM Results f or this [employer]UEPRINT ASSEMBLER procedure are i n the results section. V&IRAD VASCULAR & Routine 04/04/2017 1:47 PM Resu lts for this INTERVENTION BLUEPRINT ASSEMBLER procedure are i n the results section. ACT, POCT, B Routine 04/04/2017 12:59 Results for this PM [employer]UEPRINT ASSEMBLER procedure are i n the results section. GLUCOSE POCT, B Routine 04/04/2017 12:57 Results for this PM [employer]UEPRINT ASSEMBLER procedure are i n the results section. ACT, POCT, B Routine 04/04/2017 12:29 Results for this PM [employer]UEPRINT ASSEMBLER procedure are i n the results section. ACT, POCT, B Routine 04/04/2017 11:58 Results for this AM BLUEPRINT ASSEMBLER procedure are i n the results section. GLUCOSE POCT, B Routine 04/04/2017 11:57 Results for this AM BLUEPRINT ASSEMBLER procedure are i n the results section. ACT, POCT, B Routine 04/04/2017 11:34 Results for this AM BLUEPRINT ASSEMBLER procedure are i n the results section. GLUCOSE POCT, B Routine 04/04/2017 11:33 Results for this AM BLUEPRINT ASSEMBLER procedure are i n the results section. ACT, POCT, B Routine 04/04/2017 11:08 Results for this AM BLUEPRINT ASSEMBLER procedure are i n the results section. GLUCOSE POCT, B Routine 04/04/2017 11:06 Results for this AM BLUEPRINT ASSEMBLER procedure are i n the results section. ACT, POCT, B Routine 04/04/2017 10:39 Results for this AM BLUEPRINT ASSEMBLER procedure are i n the results section. GLUCOSE POCT, B Routine 04/04/2017 10:36 Results for this AM BLUEPRINT ASSEMBLER procedure are i n the results section. GLUCOSE POCT, B Routine 04/04/2017 9:51 AM Result s for this BLUEPRINT ASSEMBLER procedure are i n the results section. GLUCOSE POCT, B Routine 04/04/2017 7:34 AM Result s for this BLUEPRINT ASSEMBLER procedure are i n the results section. CREATININE WITH EGFR, Routine 04/04/2017 7:21 AM Results for this S/P BLUEPRINT ASSEMBLER procedure are i n the results section. documented in this encounter Results (ABNORMAL) Glucose, POCT (04/05/2017 11:43 AM BLUEPRINT ASSEMBLER) [facility] Method Time Signature Last Intake 3-4 hours [facility] Glucose, 226 (H) 70 - 140 [facility] POCT, B MG/DL LABORATORIES - [facility] Sample Site, Capillary [facility] Blood Gas, LABORATORIES - POCT [facility] Specimen Anatomical Collection Method Collection Time Receive d Time (Source) Location / / Volume Laterality 04/05/2017 11:43 04/05/2017 AM BLUEPRINT ASSEMBLER 11:43 AM BLUEPRINT ASSEMBLER Historical Provider LAB POCT ORDERABLES-MANUAL Performing Organization Address City/[facility]/ZIP Code Phon e Number [facility] LABORATORIES - [address] [place] [address] [facility] (ABNORMAL) Glucose, POCT (04/05/2017 6:50 AM BLUEPRINT ASSEMBLER) Patholo gist Method Time Signature Last Intake > 4 hours [facility] Glucose, 194 (H) 70 - 140 [facility] POCT, B MG/DL LAB[facility]ATORIES - [facility] Sample Site, Capillary [facility] Blood Gas, LABORATORIES - POCT [facility] Specimen Anatomical Collection Method Collection Time Receive d Time (Source) Location / / Volume Laterality 04/05/2017 6:50 AM 7 6:50 BLUEPRINT ASSEMBLER AM BLUEPRINT ASSEMBLER Historical Provider LAB POCT ORDERABLES-MANUAL Performing Organization Address City/[facility] Code Phon e Number [facility] LABORATORIES - [address] [address] [facility] (ABNORMAL) Electrolyte (Chem 4) Panel (04/05/2017 3:42 AM BLUEPRINT ASSEMBLER) P athologist Signature Sodium, S 138 135 - 145 [facility] MMOL/L [facility] Comment: Drawn From Arterial Line Potassium, S 4.4 3.6 - 5.2 MMOL/L [facility] Comment: Drawn From Arterial Line Creatinine 1.4 (H) 0.8 - 1.3 MG/DL [facility] L [facility] Comment: Drawn From Arterial Line eGFR Non-Black/ 51 (L) >60 ML/MIN/BSA [facility] Comment: Drawn From Arterial Line Anion Gap 13 7 - 15 [facility] LABORATO [facility] Comment: Drawn From Arterial Line Glucose, S 186 (H) 70 - 140 MG/DL [facility] Comment: Drawn From Arterial Line Chloride, S 99 98 - 107 MMOL/L [facility] Comment: Drawn From Arterial Line HX Bicarbonate, P/S 26 22 - 29 MMOL/L [facility] [place] Comment: Drawn From Arterial Line eGFR-Black/ >60 >60 ML/MIN/BSA [facility] Comment: Drawn From Arterial Line BUN (Blood Urea Nitrogen), S 16 8 - 24 MG/DL [facility] Comment: Drawn From Arterial Line Specimen Anatomical Collection Method Collection Time Receive d Time (Source) Location / / Volume Laterality 04/05/2017 3:42 AM 7 3:42 BLUEPRINT ASSEMBLER AM BLUEPRINT ASSEMBLER Narrative [facility] - 04/05/2017 4:57 AM BLUEPRINT ASSEMBLER Drawn From Arterial Line Kemar Reyes LAB BLOOD ADD-ON Performing Organization Address City/State/ZIP Code Phon e Number [facility] - [address] [place] [address] [facility] (ABNORMAL) CBC without Differential (04/05/2017 3:42 AM BLUEPRINT ASSEMBLER) [facility] Method Time Signature Erythrocytes 2.76 (L) 4.32 - [facility] 5.72 LABORATORIES - X10(12)/L [facility] Comment: Drawn From Arterial Line MCV 94.6 81.2 - 95.1 FL [facility] Comment: Drawn From Arterial Line Leukocytes 14.9 (H) 3.5 - 10.5 X10(9)/L [facility] Comment: Drawn From Arterial Line Hemoglobin 8.7 (L) 13.5 - 17.5 G/DL [facility] Comment: Drawn From Arterial Line Hematocrit 26.1 (L) 38.8 - 50.0 % [facility] Comment: Drawn From Arterial Line RBC Distrib Width 13.2 11.8 - 15.6 % [facility] Comment: Drawn From Arterial Line Platelet Count 204 150 - 450 X10(9)/L [facility] Comment: Drawn From Arterial Line Specimen Anatomical Collection Method Collection Time Receive d Time (Source) Location / / Volume Laterality 04/05/2017 3:42 AM 7 3:42 BLUEPRINT ASSEMBLER AM BLUEPRINT ASSEMBLER Narrative [facility] - 04/05/2017 4:30 AM BLUEPRINT ASSEMBLER Drawn From Arterial Line Kemar Reyes LAB BLOOD ADD-ON Performing Organization Address City/[facility]/ZIP Code Phon e Number [facility] LABORATORIES - [address] [address] [facility] (ABNORMAL) Glucose, POCT (04/04/2017 9:51 PM BLUEPRINT ASSEMBLER) Patholo gist Method Time Signature Last Intake 2-3 hours [facility] Glucose, 236 (H) 70 - 140 [facility] POCT, B MG/DL [facility] Sample Site, Capillary [facility] Blood Gas, LABORATORIES - POCT [facility] Specimen Anatomical Collection Method Collection Time Receive d Time (Source) Location / / Volume Laterality 04/04/2017 9:51 PM 7 9:51 BLUEPRINT ASSEMBLER PM BLUEPRINT ASSEMBLER Historical Provider LAB POCT ORDERABLES-MANUAL Performing Organization Address City/[facility]/ZIP Code Phon e Number [facility] LABORATORIES - [address] [address] [facility] Cardiac Biomarker Panel (04/04/2017 5:04 PM BLUEPRINT ASSEMBLER) P athologist Signature Troponin T, S <0.01 <0.01 [facility] NG/ML [facility] Comment: Drawn From Arterial Line Troponin T 3H, S <0.01 <0.01 NG/ML [facility] Comment: Drawn From Arterial Line Troponin Delta 0.00 NG/ML [facility] Comment: Drawn From Arterial Line Delta Interp Not Sig [facility] Comment: Drawn From Arterial Line ? No significant delta observed. ? Troponin Delta 0.00 NG/ML [facility] Comment: Drawn From Arterial Line Troponin T 6H, S <0.01 <0.01 NG/ML [facility] Comment: Drawn From Arterial Line Delta Interp Not Sig [facility] Comment: Drawn From Arterial Line ? No significant delta observed. ? Specimen Anatomical Collection Method Collection Time Receive d Time (Source) Location / / Volume Laterality 04/04/2017 5:04 PM 04/04/ 7 5:04 BLUEPRINT ASSEMBLER PM BLUEPRINT ASSEMBLER Narrative [facility] - 04/05/2017 12:13 AM BLUEPRINT ASSEMBLER Drawn From Arterial Line Manav Castillo M.D. LAB BLOOD ADD-ON Performing Organization Address City/State/ZIP Code Phon e Number [facility] - [address] [place], [place] [address] [facility] (ABNORMAL) Glucose, POCT (04/04/2017 4:50 PM BLUEPRINT ASSEMBLER) Patholo gist Method Time Signature Glucose, 161 (H) 70 - 140 [facility] POCT, B MG/DL LAB[facility]ATORIES - [facility] Sample Site, Capillary [facility] Blood Gas, LABORATORIES - POCT [facility] Specimen Anatomical Collection Method Collection Time Receive d Time (Source) Location / / Volume Laterality 04/04/2017 4:50 PM 7 4:50 BLUEPRINT ASSEMBLER PM BLUEPRINT ASSEMBLER Historical Provider LAB POCT ORDERABLES-MANUAL Performing Organization Address City/[facility]/ZIP [facility] Phon e Number [facility] LABORATORIES - [address] [address] [facility] (ABNORMAL) Glucose, POCT (04/04/2017 3:02 PM BLUEPRINT ASSEMBLER) [facility] Method Time Signature Glucose, POCT, 176 (H) 70 - 140 [facility] B MG/DL [facility]ATOR[facility] - [facility] Specimen Anatomical Collection Method Collection Time Receive d Time (Source) Location / / Volume Laterality 04/04/2017 3:02 PM 7 3:02 BLUEPRINT ASSEMBLER PM BLUEPRINT ASSEMBLER Historical Provider LAB POCT ORDERABLES-MANUAL Performing Organization Address City/[facility] Phon e Number [facility] LABORATORIES - [address] [address] [facility] ECG 12 Lead (04/04/2017 2:34 PM BLUEPRINT ASSEMBLER) Specimen (Source) Anatomical Collection Method Collection Time Re ceived Time Location / / Volume Laterality 04/04/2017 2:34 PM BLUEPRINT ASSEMBLER Narrative [facility] CONVERSION - 04/04/2017 2:4 0 PM BLUEPRINT ASSEMBLER 04Apr2017 14:34 VENTRICULAR RATE 80 Normal sinus rhythm Left atrial enlargement Right bundle branch block Prolonged QT When compared with ECG of 04-MAR-2017 07 :18, QT has lengthened [id number]^RAYO BONILLA^SUNIL Procedure Note Sunil Meier M.D., Ph.D. - 8 04Apr2017 14:34 VENTRICULAR RATE 80 Normal sinus rhythm Left atrial enlargement Right bundle branch block Prolonged QT When compared with ECG of 04-MAR-2017 07 :18, QT has lengthened [id number]^RAYO BONILLA^SUNIL Manav Castillo M.D. ECG ORDERABLES Performing Organization Address City/[facility]/ZIP Code Phon e Number [place] CONVERSION V&IRAD Vascular & Intervention (04/04/2017 1:47 PM BLUEPRINT ASSEMBLER) Anatomical Region Laterality Modality N/A X-Ray Angiography Specimen (Source) Anatomical Collection Method Collection Time Re ceived Time Location / / Volume Laterality 04/04/2017 1:47 PM BLUEPRINT ASSEMBLER Narrative 04/05/2017 8:21 AM BLUEPRINT ASSEMBLER 04-Apr-2017 13:47:00 ??Exam: V&IRAD Vascular & Intervention [...] Operative Note of sa me date in [facility] LastWord. Electronically signed by: ?? [...] Operative Note of sa me date in [facility] [employer]. Electronically signed by: no valid signature 05-Apr-2017 08:21 Kemar DavidB.S. IMG IR PROCEDURES (ABNORMAL) ACT (Activated Clotting Time), POCT (04/04/2017 12:59 PM BLUEPRINT ASSEMBLER) [facility] gist Method Time Signature Activated 223 (H) 84 - 139 [facility] Clotting Time, SEC LABORATORIES - POCT [facility] Specimen Anatomical Collection Method Collection Time Receive d Time (Source) Location / / Volume Laterality 04/04/2017 12:59 04/04/2017 PM BLUEPRINT ASSEMBLER 12:59 PM BLUEPRINT ASSEMBLER Historical Provider LAB POCT ORDERABLES - DEVICE Performing Organization Address [facility] Phon e Number [facility] LABORATORIES - [address] Glucose, POCT (04/04/2017 12:57 PM BLUEPRINT ASSEMBLER) P athologist Signature Glucose, POCT, 123 70 - 140 [facility] B MG/DL [facility]ATORIES - [facility] Specimen Anatomical Collection Method Collection Time Receive d Time (Source) Location / / Volume Laterality 04/04/2017 12:57 04/04/2017 PM BLUEPRINT ASSEMBLER 12:57 PM BLUEPRINT ASSEMBLER Historical Provider LAB POCT ORDERABLES-MANUAL Performing Organization Address [facility] Phon e Number [facility] LABORATORIES - [address] (ABNORMAL) ACT (Activated Clotting Time), POCT (04/04/2017 12:29 PM BLUEPRINT ASSEMBLER) [facility] Method Time Signature Activated 245 (H) 84 - 139 [facility] Clotting Time, SEC LABORATORIES - POCT [facility] Specimen Anatomical Collection Method Collection Time Receive d Time (Source) Location / / Volume Laterality 04/04/2017 12:29 04/04/2017 PM BLUEPRINT ASSEMBLER 12:29 PM BLUEPRINT ASSEMBLER Historical Provider LAB POCT ORDERABLES - DEVICE Performing Organization Address [facility] Phon e Number [facility] LABORATORIES - [address] (ABNORMAL) ACT (Activated Clotting Time), POCT (04/04/2017 11:58 AM BLUEPRINT ASSEMBLER) [facility] Method Time Signature Activated 218 (H) 84 - 139 [facility] Clotting Time, SEC LABORATORIES - POCT [facility] Specimen Anatomical Collection Method Collection Time Receive d Time (Source) Location / / Volume Laterality 04/04/2017 11:58 04/04/2017 AM BLUEPRINT ASSEMBLER 11:58 AM BLUEPRINT ASSEMBLER Historical Provider LAB POCT ORDERABLES - DEVICE Performing Organization Address City/[facility] Phon e Number [facility] LABORATORIES - [address] [place], [place] [address] [facility] Glucose, POCT (04/04/2017 11:57 AM BLUEPRINT ASSEMBLER) P athologist Signature Glucose, POCT, 105 70 - 140 [facility] MG/DL [facility] - [facility] Specimen Anatomical Collection Method Collection Time Receive d Time (Source) Location / / Volume Laterality 04/04/2017 11:57 04/04/2017 AM BLUEPRINT ASSEMBLER 11:57 AM BLUEPRINT ASSEMBLER Historical Provider LAB POCT ORDERABLES-MANUAL Performing Organization Address City/State/ZIP Code Phon e Number [facility] LABORATORIES - [address] [place], [place] [address] [facility] (ABNORMAL) ACT (Activated Clotting Time), POCT (04/04/2017 11:34 AM BLUEPRINT ASSEMBLER) [facility] Method Time Signature Activated 223 (H) 84 - 139 [facility] Clotting Time, SEC LABORATORIES - POCT [facility] Specimen Anatomical Collection Method Collection Time Receive d Time (Source) Location / / Volume Laterality 04/04/2017 11:34 04/04/2017 AM BLUEPRINT ASSEMBLER 11:34 AM BLUEPRINT ASSEMBLER Historical Provider LAB POCT ORDERABLES - DEVICE Performing Organization Address City/State/ZIP Code Phon e Number [facility] LABORATORIES - [address] [address] [facility] Glucose, POCT (04/04/2017 11:33 AM BLUEPRINT ASSEMBLER) P athologist Signature Glucose, POCT, 110 70 - 140 [facility] MG/DL [facility]ATOR[facility] - [facility] [place] Specimen Anatomical Collection Method Collection Time Receive d Time (Source) Location / / Volume Laterality 04/04/2017 11:33 04/04/2017 AM BLUEPRINT ASSEMBLER 11:33 AM BLUEPRINT ASSEMBLER Historical Provider LAB POCT ORDERABLES-MANUAL Performing Organization Address City/State/ZIP Code Phon e Number [facility] LABORATORIES - [address] [address] [facility] (ABNORMAL) ACT (Activated Clotting Time), POCT (04/04/2017 11:08 AM BLUEPRINT ASSEMBLER) [facility] Method Time Signature Activated 245 (H) 84 - 139 [facility] Clotting Time, SEC LABORATORIES - POCT [facility] [place] Specimen Anatomical Collection Method Collection Time Receive d Time (Source) Location / / Volume Laterality 04/04/2017 11:08 04/04/2017 AM BLUEPRINT ASSEMBLER 11:08 AM BLUEPRINT ASSEMBLER Historical Provider LAB POCT ORDERABLES - DEVICE Performing Organization Address City/[facility]/ZIP Code Phon e Number [facility] LABORATORIES - [address] [address] [facility] Glucose, POCT (04/04/2017 11:06 AM BLUEPRINT ASSEMBLER) [facility] Method Time Signature Glucose, POCT, 97 70 - 140 [facility] MG/DL [facility]ATORIES - [facility] Sample Site, [facility] Blood Gas, LABORATORIES - POCT [facility] Specimen Anatomical Collection Method Collection Time Receive d Time (Source) Location / / Volume Laterality 04/04/2017 11:06 04/04/2017 AM BLUEPRINT ASSEMBLER 11:06 AM BLUEPRINT ASSEMBLER Historical Provider LAB POCT ORDERABLES-MANUAL Performing Organization Address City/[facility]/ZIP Code Phon e Number [facility] LABORATORIES - [address] [address] [facility] (ABNORMAL) ACT (Activated Clotting Time), POCT (04/04/2017 10:39 AM BLUEPRINT ASSEMBLER) [facility] Signature Activated 278 (H) 84 - 139 [facility] Clotting Time, SEC LABORATORIES - POCT [facility] [place] Specimen Anatomical Collection Method Collection Time Receive d Time (Source) Location / / Volume Laterality 04/04/2017 10:39 04/04/2017 AM BLUEPRINT ASSEMBLER 10:39 AM BLUEPRINT ASSEMBLER Historical Provider LAB POCT ORDERABLES - DEVICE Performing Organization Address City/[facility]/ZIP Code Phon e Number [facility] LABORATORIES - [address] [address] [facility] Glucose, POCT (04/04/2017 10:36 AM BLUEPRINT ASSEMBLER) P athologist Signature Glucose, POCT, 109 70 - 140 [facility] MG/DL [facility]ATORIES - [facility] Specimen Anatomical Collection Method Collection Time Receive d Time (Source) Location / / Volume Laterality 04/04/2017 10:36 04/04/2017 AM BLUEPRINT ASSEMBLER 10:36 AM BLUEPRINT ASSEMBLER Historical Provider LAB POCT ORDERABLES-MANUAL Performing Organization Address City/[facility]/ZIP Code Phon e Number [facility] LABORATORIES - [address] [address] [facility] (ABNORMAL) Glucose, POCT (04/04/2017 9:51 AM BLUEPRINT ASSEMBLER) [facility] Method Time Signature Glucose, POCT, 59 (L) 70 - 140 [facility] B MG/DL LABORATORIES - [facility] Sample Site, [facility] Blood Gas, LABORATORIES - POCT [facility] [place] Specimen Anatomical Collection Method Collection Time Receive d Time (Source) Location / / Volume Laterality 04/04/2017 9:51 AM 7 9:51 BLUEPRINT ASSEMBLER AM BLUEPRINT ASSEMBLER Historical Provider LAB POCT ORDERABLES-MANUAL Performing Organization Address City/[facility] Code Phon e Number [facility] LABORATORIES - [address] [address] [facility] Glucose, POCT (04/04/2017 7:34 AM BLUEPRINT ASSEMBLER) [facility] Method Time Signature Glucose, 77 70 - 140 [facility] POCT, B MG/DL LABORATORIES - [facility] Sample Site, Capillary [facility] Blood Gas, LABORATORIES - POCT [facility] Specimen Anatomical Collection Method Collection Time Receive d Time (Source) Location / / Volume Laterality 04/04/2017 7:34 AM 7 7:34 BLUEPRINT ASSEMBLER AM BLUEPRINT ASSEMBLER Historical Provider LAB POCT ORDERABLES-MANUAL Performing Organization Address City/[facility] Code Phon e Number [facility] LABORATORIES - [address] [address] [facility] (ABNORMAL) Creatinine with Estimated GFR (MDRD) (04/04/2017 7:21 AM BLUEPRINT ASSEMBLER) [facility] Method [place] Signature Creatinine 1.7 (H) 0.8 - 1.3 [facility] MG/DL LABORATORIES - [facility] eGFR 41 (L) >60 [facility] Non-Black/Afric ML/MIN/BS LABORATORIES - an [place] A [facility] eGFR-Black/Afri 49 (L) >60 [facility] can [place] ML/MIN/BS LABORATORIES - A [facility] Specimen Anatomical Collection Method Collection Time Receive d Time (Source) Location / / Volume Laterality 04/04/2017 7:21 AM 7 7:21 BLUEPRINT ASSEMBLER AM BLUEPRINT ASSEMBLER Kemar Reyes LAB BLOOD ADD-ON Performing Organization Address City/State/ZIP Code Phon e Number [facility] LABORATORIES - [address] [address] [facility] documented in this encounter Visit Diagnoses Not on filedocumented in this encounter Additional Health Concerns Assessment Noted Time PHQ-9 Depression Total Score: 6 12/22/2016 10:26 AM CD T documented as of this encounter Care Teams Rubber Tile Floor Layer Relationship Specialty Start Date End Date Iram Zacarias, JULIÁN, C.N.P. PCP - General 10/28/16 04/05/17 [address] [id number] documented as of this encounter
--- OUTSIDE RECORDS SUMMARY | 2022-04-28 14:49 | XMS_ITS | Encounter Summary ---
:1950 Author Organization [facility] Address [address] [place] [address] Care Team Providers Name Role Phone Irma Zacarias APRN C.N.P. Primary Care Provider [phone] Encounter Details Date Type Department Care Team [...] How often do you attend episcopalian or shinto services? 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 PCP - General 10/28/16 04/05/[address], [place] [phone] documented as of this encounter
--- OUTSIDE RECORDS SUMMARY | 2022-04-28 14:49 | XMS_ITS | Encounter Summary ---
:1950 Author Organization [facility] Address [address] [place] [address] Care Team Providers Name Role Phone Irma Zacarias APRN C.N.PFei Primary Care Provider [phone] Encounter Details Date Type Department Care Team Description 03/15/2017 Abstract Department of Family Medicine, Provider, Historical [facility], in [place], [place] [address], [place] [address] [facility] [phone] Social History Tobacco Use Types Packs/Day Years [...] How often do you attend restorationism or caodaism services? 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 PCP - General 10/28/16 04/05/[address] [address] documented as of this encounter
--- OUTSIDE RECORDS SUMMARY | 2022-04-28 14:49 | XMS_ITS | Encounter Summary ---
:1950 Author Organization [facility] Address [address] [place] [address] Care Team Providers Name Role Phone Irma Zacarias APRN C.N.P. Primary Care Provider [phone] Encounter Details Date Type Department Care Team Description 02/14/2017 Hospital Encounter [facility]X [facility] Renee Lowry i, M.D. [address] [place] [address] (Wo rk) Social History Tobacco [...] How often do you attend mandaen or mosque services? 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 lancets [facility] [...] documented as of this encounter Care Teams Change Management Expert Relationship Specialty Start Date End Date Irma Zacarias, JULIÁN, C.N.P. PCP - General 10/28/16 04/05/[address] [phone] documented as of this encounter
--- OUTSIDE RECORDS SUMMARY | 2022-04-28 14:49 | XMS_ITS | Encounter Summary ---
:1950 Author Organization [facility] Address [address] [place] [address] Care Team Providers Name Role Phone Irma Zacarias APRN C.N.P. Primary Care Provider [phone] Encounter Details Date Type Department Care Team [...] How often do you attend yarsani or anglican services? 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 PCP - General 10/28/16 04/05/17 [address] [phone] documented as of this encounter
--- OUTSIDE RECORDS SUMMARY | 2022-04-28 14:49 | XMS_ITS | Encounter Summary ---
:1950 Author Organization [facility] Address [address] [place] [address] Care Team Providers Name Role Phone Irma Zacarias APRN, C.N.P. 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 [address] [place] [address] Referral ID Status Reason Start Date Expiration Date Visits Requ ested Visits Authorized [id number] Closed 02/25/2017 08/24/2017 1 1 Encounter Details Date Type Department Care Team Description 02/25/2017 Orders Only Department of Family Irma Zacarias Pur e Hyperglyceridemia; Medicine, [place] JULIÁN, C.N.P. Diabetes Mellitus Type 2 With Diabetic P olyneuropathy (HCC) Clinic, in [place], [address] [place], [place] [address] [address] [place], [place] [phone] [address] (Work) [phone] Social History Tobacco Use Types Packs/Day Years [...] How often do you attend advent or buddhist services? 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 Family Medicine Outpatient Referral Routine Diabetes [...] documented as of this encounter Care Teams Applique Cutter Relationship Specialty Start Date End Date Irma Zacarias, JULIÁN, C.N.P. PCP - General 10/28/16 04/05/[address] [address] documented as of this encounter
--- OUTSIDE RECORDS SUMMARY | 2022-04-28 14:49 | XMS_ITS | Encounter Summary ---
:1950 Author Organization [facility] Address [address] [place] [address] Care Team Providers Name Role Phone Irma Zacarias APRN C.N.P. Primary Care Provider [phone] Encounter Details Date Type Department Care Team [...] How often do you attend hoahaoism or hoahaoism services? 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 documented as of this encounter Last Filed Vital Signs Vital Sign Reading Time Taken Comments Blood Pressure 175/56 03/31/2017 3:02 PM LITHOGRAPH PRESS OPERATOR TINWARE Pulse 64 03/31/2017 11:07 AM LITHOGRAPH PRESS OPERATOR TINWARE Temperature - - Respiratory Rate 16 03/31/2017 3:02 PM LITHOGRAPH PRESS OPERATOR TINWARE Oxygen Saturation - - Inhaled Oxygen Concentration - - Weight 74.8 kg (164 lb 14.5 oz) 03/31/2017 7:11 AM LITHOGRAPH PRESS OPERATOR TINWARE Height 176.5 cm (5' 9.49) 03/31/2017 7:11 AM LITHOGRAPH PRESS OPERATOR TINWARE Body Mass Index 24.01 03/31/2017 7:11 AM LITHOGRAPH PRESS OPERATOR TINWARE documented in this encounter Medications at Time [...] injection a day before meals. lancets [facility] [...] documented as of this encounter Care Teams Freight Broker Agent Relationship Specialty Start Date End Date Irma Zacarias, JULIÁN, C.N.P. PCP - General 10/28/16 04/05/17 [address], [place] [address] documented as of this encounter
--- OUTSIDE RECORDS SUMMARY | 2022-04-28 14:50 | XMS_ITS | Encounter Summary ---
:1950 Author Organization [facility] Address [address] [place] [address] Care Team Providers Name Role Phone Unavailable Primary Care Provider Unavailable Encounter Details Date Type Department Care Team Description 07/31/2009 Hospital Encounter HX [facility] FAMILYPRA Tee Dhillon M.D. 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
--- OUTSIDE RECORDS SUMMARY | 2022-04-28 14:50 | XMS_ITS | Encounter Summary ---
:1950 Author Organization [facility] Address [address] [place] [address] Care Team Providers Name Role Phone Unavailable Primary Care Provider Unavailable Encounter Details Date Type Department Care Team Description 11/06/2009 Hospital Encounter HX [facility] Tee Dhillon M.D. [address] [place] [address] (Wo rk) Social History Tobacco [...] How often do you attend mormonism or mormonism services? 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 Addendum by KIRILL SINGH LPN on July 08, 2016 15:57:08 ELECTRIC CONTAINER TESTER From: KIRILL SINGH LPN ( Myrbipin Nurse) To: NATO DOUGHERTY APRN, CNP; Sent: 07/08/2016 15:57:08 ELECTRIC CONTAINER TESTER Subject: FW: *Phone Message/Deann Addendum by KIRILL SINGH LPN on July 08, 2016 15:56:59 ELECTRIC CONTAINER TESTER notified Stacie from [facility] that it is ok to change medication. Stated that they usually go with cymblata and they will take over ordering that. Addendum by RICHA BHATT on July 08, 2016 15:53:39 ELECTRIC CONTAINER TESTER Stacie from [facility] in [place] returned call - [phone] and ask for her and theywill find her for you Addendum by KIRILL SINGH LPN on July 08, 2016 14:49:16 ELECTRIC CONTAINER TESTER Attempted to contact patient. Message left to return my call. Addendum by NATO DOUGHERTY APRN, CNP on July 08, 2016 14:42:55 ELECTRIC CONTAINER TESTER From: NATO DOUGHERTY APRN, CNP To: FB Deann Nurse; Sent: 07/08/2016 14:42:55 ELECTRIC CONTAINER TESTER Subject: RE: *Phone Message/Deann Yes, that is Ok. Addendum by KIRILL SINGH LPN on July 08, 2016 14:30:08 ELECTRIC CONTAINER TESTER From: KIRILL SINGH LPN ( Myrom Nurse) To: NATO DOUGHERTY APRN, CNP; Sent: 07/08/2016 14:30:08 ELECTRIC CONTAINER TESTER Subject: FW: *Phone Message/[employer] Addendum by KIRILL SINGH LPN on July 08, 2016 14:29:59 ELECTRIC CONTAINER TESTER Spoke with: ( _ ) Patient ( _ ) Parent ( _ ) Spouse ( _ ) Child ( x Stacie [facility] [place] ) Other: _ Call back telephone number: [...] language for Healthcare discussion: _ Was an chief gauger used for this call? _ Other ( --_ ) From: ROBERTO VENTURA ([address] Nurse) To: FINESSE Dougherty Nurse; Sent: 07/08/2016 14:18:53 ELECTRIC CONTAINER TESTER Subject: *Phone Message/[employer] Caller is: ( ) Patient ( ) Mother ( ) Father ( ) Spouse ( ) Daughter ( ) Son ( ) Pharmacy ( ) Other: Physician: Patient MRN #: Reason for Call: Message: [facility], called. They are looking to possibly change medication, looking for your approval for the plan. Please call [phone] can ask to speak to triage. Advice/Action: [...] back cell phone number ( ) Source: [facility] POWERCHART Document Id: [id number] documented in this encounter Plan of Treatment Not on filedocumented as of this encounter Visit Diagnoses Not on filedocumented in this encounter
--- OUTSIDE RECORDS SUMMARY | 2022-04-28 14:50 | XMS_ITS | Encounter Summary ---
:1950 Author Organization [facility] Address [address] [place] [address] Care Team Providers Name Role Phone Nato Dougherty APRN, C.N.P. Primary Care Provider [phone] Encounter Details Date Type Department Care Team Description 12/28/2016 Hospital Encounter HX [facility] FAMILYPRA Nato Dougherty APRN, C.N.P. [address] [place], [place] [phone] (Wo rk) Social History [...] How often do you attend shinto or advent services? 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 lancets [facility] Dispense item 0 08/23/2014 9 [...] ) Other: _ Call back telephone number: [phone] Reason for Call: -Refill on Medication Chief [...] applicable) Source/Reference used (if applicable): Nato Dougherty, NICOEL OK to leave message on voice mail? N/A OK to send message via patient portal? N/A Patient told to expect return call: ( _ ) today ( _ ) tomorrow ( _ ) next work day Callers preferred language for Healthcare discussion: Portuguese Was an cmm operator used for this call? No Other ( [...] to today. He can be reached at [phone] Advice/Action: Source used: ( ) Verbalizes understanding [...] back cell phone number ( ) Source: [facility] POWERCHART Document Id: [id number] Miscellaneous - Mitali Castillo, C.M.A. - 12/28/2016 [...] 2016 12:02:08 CDT From: NATO DOUGHERTY APRN HOUSETRAILER SERVICER To: MITALI CASTILLO CMA; Sent: 12/28/2016 12:02:08 CDT Subject: RE: *General Message He will increase amlodipine to 10 mg daily and return for blood pressure recheck in 7-10 days. From: MITALI CASTILLO CMA To: NATO DOUGHERTY APRN HOUSETRAILER SERVICER; Sent: 12/28/2016 10:56:01 CDT Subject: *General Message Patient was in for B/P check today. I ask him to wait and talk to Nato Dougherty. Patient's B/P was high. B/P 150/68 Pulse 58 Five minutes later. B/P 168/79 Pulse 66 Source: [facility] Document Id: [id number] Miscellaneous - Mitali Castillo, C.M.A. - 12/28/2016 [...] ft 8 inch(es), 68 inch(es)) MITALI CASTILLO [facility] - 12/28/2016 10:04 CDT Source: [employer] Document Id: [id number] CDT!9 Miscellaneous - Mitali Castillo, C.M.A. - [...] CASTILLO CMA - 12/28/2016 9:51 CDT Source: [facility] [employer]CHART Document Id: [id number] CDT!9 documented in this encounter Plan of Treatment Not on filedocumented as of this encounter Visit Diagnoses Not on filedocumented in this encounter Additional Health Concerns Assessment Noted Time PHQ-9 Depression Total Score: 6 12/22/2016 10:26 AM CD T documented as of this encounter Care Teams Independent Insurance Adjuster Relationship Specialty Start Date End Date Nato Dougherty, JULIÁN, C.N.P. PCP - General 10/28/16 04/05/[address] [address] documented as of this encounter
--- OUTSIDE RECORDS SUMMARY | 2022-04-28 14:50 | XMS_ITS | Encounter Summary ---
:1950 Author Organization [facility] Address [address] [place] [address] Care Team Providers Name Role Phone Unavailable Primary Care Provider Unavailable Encounter Details Date Type Department Care Team Description 08/19/2016 Hospital Encounter HX [facility] Chalo Malloy Jr., M.D. [address] [phone] (Wo rk) Social History [...] How often do you attend sabianist or taoist services? 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 - 08/19/2016 9:15 AM CDT [id number] The documentation for this visit is available in Synthesis IMPRESSION/REPORT/PLAN #1 Diabetes No retinopathy or macular edema #2 IOL OU Stable New glasses RTO 1 year Chalo Koenig M.D./ Electronically Signed By: CHALO KOENIG MD On: 09/19/2016 10:14 PM Source: [facility] MHSDOLBEYNONRADSYS Document Id: [id number] documented in this encounter Miscellaneous Notes Miscellaneous - Chalo Koenig M.D. - 08/19/2016 10:22 AM CDT Ambulatory Patient Summary [address] [id number] Visit Information Name: ONESIMO WALTON RICHARD [facility] Number: [id number] Current Date: 08/19/2016 10:22:21 Physicians Attending Provider: CHALO KOENIG MD Primary Care Provider: NATO DOUGHERTY APRN DENTAL THERAPIST ONESIMO WALTON has been given the following [...] 12 hours NarcoticContract with [facility] [place] 06/28/16 (scanned) rOPINIRole (rOPINIRole 2 mg oral [...] [facility] Lab [facility] Lab 09/22/2016 09:15 FBCV [facility] [employer] Nato Dougherty CNP Attention: Contact your local [...] if you dont have one. Go to [email or web address] and click on Create Your Account. Then, follow the directions to complete the online form. Youll be asked for your [facility] number which you can find at the top of this document. Your Goals/Additional instructions: Source: [facility] POWERCHART Document Id: [id number] Miscellaneous - Chalo Koenig M.D. - 08/19/2016 10:22 AM CDT Ambulatory Discharge Medication List [address] [id number] Visit Information Name: YOHANA, ONESIMO RAMOS [facility] Number: [id number] Current Date: 08/19/2016 10:22:20 Attending Provider: CHALO KOENIG MD Primary Care Provider: NATO DOUGHERTY APRN DENTAL THERAPIST ONESIMO WALTON RICHARD has been given the [...] 12 hours NarcoticContract with [facility] [place] 06/28/16 (scanned) rOPINIRole (rOPINIRole 2 mg oral [...] MD Signed On:19-AUG-2016 10:22:17 Additional Information: Source: [facility] POWERCHART Document Id: [id number] Sánchez Frias - 08/19/2016 9:30 AM CDT Quality Measures Quality Measures Entered On: 08/19/2016 9:30 CDT Performed On: 08/19/2016 9:30 CDT by SÁNCHEZ PETERSON Diabetes Date of Last Eye Exam : 08/19/2016 CDT SÁNCHEZ PETERSON - 08/19/2016 9:30 CDT Source: [facility] Document Id: [id number] CDT!3 Sánchez Frias - 08/19/2016 9:30 AM CDT Adult Industry Analyst Intake/History Adult Industry Analyst Intake/History Entered On: 08/19/2016 9:48 CDT Performed [...] 08/19/2016 9:30 CDT General Info Languages : Niuean Is Patient Female and 13-50 no hysterectomy [...] SÁNCHEZ PETERSON - 08/19/2016 9:30 CDT Source: [facility] POWERCHART Document Id: [id number] CDT!24 documented in this encounter Plan of Treatment Not on filedocumented as of this encounter Visit Diagnoses Not on filedocumented in this encounter Additional Health Concerns Assessment Noted Time PHQ-9 Depression Total Score: 7 08/16/2016 9:01 AM CDT documented as of this encounter
--- OUTSIDE RECORDS SUMMARY | 2022-04-28 14:50 | XMS_ITS | Encounter Summary ---
:1950 Author Organization [facility] Address [address] [place] [address] Care Team Providers Name Role Phone Unavailable Primary Care Provider Unavailable Encounter Details Date Type Department Care Team Description 09/03/2016 Hospital Encounter HX [facility] FAMILYPRA Cheri Santo M.D. [address] [place], [place] [phone] (Wo rk) Social History [...] How often do you attend temple or buddhist services? 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 lancets [facility] [...] Cortes M.D. - 09/03/2016 10:46 AM CDT [id number] CHIEF COMPLAINT/ REASON FOR VISIT Left knee [...] behalf by Juju Ibarra, a trained medical practice administrator. The creation of this record is based on the scribe's personal observations and the provider's statements to them. This document has been ch ecked and approved by the attending provider. Cheri Quiros M.D./ Electronically Signed By: CHERI CORTES MD On: 10/07/2016 12:18 AM Source: [facility] MHSDOLBEYNONRADSYS Document Id: [id number] documented in this encounter Miscellaneous Notes Miscellaneous - Rock Chavez, L.P.N. - 09/03/2016 11:42 AM CDT Adult Food And Beverage Manager Intake/History Adult Food And Beverage Manager Intake/History Entered On: 09/03/2016 11:44 CDT Performed [...] Preferred Communication Mode : Verbal Languages : Albanian Is Patient Female and 13-50 no hysterectomy [...] CHAVEZ LPN - 09/03/2016 11:42 CDT Source: [facility] [employer]CHART Document Id: [id number] CDT!44 documented in this encounter Plan of [...]
--- OUTSIDE RECORDS SUMMARY | 2022-04-28 14:50 | XMS_ITS | Encounter Summary ---
:1950 Author Organization [facility] Address [address] [place] [address] Care Team Providers Name Role Phone Unavailable Primary Care Provider Unavailable Encounter Details Date Type Department Care Team Description 09/23/2016 Hospital Encounter HX [facility] FAMILYPRA Nato Dougherty, EXPANDING MACHINE OPERATOR, C.N.P. [address] [place], [place] [phone] (Wo rk) Social History [...] How often do you attend hinduism or buddhism services? 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 Diabetes education done today , please see inclusion paraeducator intake form in the EHR. 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 Ordered: OV Est Pt Level 4 - 86888 - 25 min Hypertriglyceridemia Stable on atorvastatin without adverse effects. Ordered: OV Est Pt Level 4 - 84638 - 25 min Nursing Home Use Of Insulin Active Take Humalog insulin before meals. Ordered: OV Est Pt Level 4 - 18627 - 25 min Electronically Signed By: NATO DOUGHERTY APRN, CNP On: 09/23/2016 11:23 AM Source: [facility] POWERCHART Document Id: [id number] documented in this encounter Nursing Notes Nato Dougherty APRN, C.N.P. - 09/23/2016 11:23 AM CDT Reinsurance Accountant Intake (Adult) Reinsurance Accountant Intake (Adult) Entered On: 09/23/2016 11:24 CDT [...] Patient : 15 Minutes NATO DOUGHERTY APRN [facility] - 09/23/2016 11:23 CDT Education Diabetes Education Grid Topics : Medications/Effectiveness - Insulin Administration, Medications/Effectiveness - Insulin Dose Adjustment, Problem Solving/Goal Setting - Treatment/Management Goals Individuals Taught : Patient Barriers to Learning : None evident Teaching Method : Explanation, Printed materials Teaching Evaluation : Verbalizes understanding NAOT DOUGHERTY APRN [facility] - 09/23/2016 11:23 CDT Comprehensive Program Goals Diabetes Education Goals Grid Diabetes Education Goal #1 row Diabetes Education Goal #2 row Diabetes Education Goal #3 row Date Goal Set : 09/23/2016 CDT 09/23/2016 CDT 09/23/2016 CDT Goal : A1c less than 7-8 Annual eye exam Blood pressure less than 140/90 Related Content Area : Healthy eating Reducing risks Medication NATO DOUGHERTY APRN [facility] - 09/23/2016 11:23 CDT NATO DOUGHERTY APRN [facility] - 09/23/2016 11:23 CDT NATO DOUGHERTY APRN [facility] - 09/23/2016 11:23 CDT Source: [facility] Document Id: [id number] CDT!36 Nato Dougherty APRN, C.N.P. - 09/23/2016 [...] that are unsaturated. ?? Talk to your strategy analyst about safe sugar substitutes. ?? Avoid added [...] of Nutrition and Dietetics www.eatright.org ?? The [place] [employer] 811-078-4813 www.diabetes.org ?? Mohan [facility], [address] [place] [address], [place] [address]. All rights reserved. This information is not intended as a substitute for professional medical care. Always follow your healthcare professional's instructions. This document has images extracted. Please consider using [employer] for all your patient education needs. Source: [facility] POWERCHART Document Id: [id number] documented in this encounter Miscellaneous Notes Miscellaneous - Sapphire Latif - 10/01/2016 9:21 AM CDT A message from your Primary Care Provider and your Care Team From: SAPPHIRE LATIF LPN To: ONESIMO WALTON RICHARD Sent: 10/01/2016 09:21:13 CDT Subject: A message from your Primary Care Provider and your Care Team Onesimo Anton [facility] Number: [phone] [place] [address] : 1950 Mr. Walton, We have developed [...] visit with us more convenient. Please call [phone] to schedule services that are past due or that may shortly become due (thank you if you have already done so). We will follow up in three to six months should you have more services to schedule at that time. If you have already received any of the listed past due or upcoming services outside of [facility], please call [phone] to add them to your medical record. You may want to consider contacting your health insurance company to make sure these services are covered and find out if there will be any adh-at-moktsq expense. If you have any questions about the services listed above, or if you are no longer receiving care from [facility], please contact us at [phone]. Thank you for partnering to provide you with the best care possible. Thank you for choosing us, Nato Dougherty APRN, C.N.PFei and the [facility], for your health care needs! Source: [facility] POWERCHART Document Id: [id number] Misestefani - Nato Dougherty APRN, C.N.P. - 09/23/2016 11:24 AM CDT Quality Measures Quality Measures Entered On: 09/23/2016 11:24 CDT Performed On: 09/23/2016 11:24 CDT by NATO DOUGHERTY APRN, CNP Diabetes Date of Last Diabetes Education : 09/23/2016 CDT NATO DOUGHERTY APRN, CNP - 09/23/2016 11:24 CDT Source: [facility] Document Id: [id number] CDT!3 Miscellaneous - Winter Singh L.P.N. - [...] SINGH LPN - 09/23/2016 11:23 CDT Source: [facility] POWERCHART Document Id: [id number] CDT!13 Miscellaneous - Nato Duogherty APRN, C.N.P. - 09/23/2016 11:12 AM CDT Ambulatory Patient Summary [address] [id number] Visit Information Name: ONESIMO WALTON [facility] Number: [id number] Current Date: 09/23/2016 11:12:36 Physicians Attending Provider: NATO DOUGHERTY APRN TOOL DRESSER Primary Care Provider: NATO DOUGHERTY APRN [facility] ONESIMO WALTON RICHARD has been given [...] 12 hours NarcoticContract with [facility] 06/28/16 (scanned) rOPINIRole (rOPINIRole 2 mg oral [...] that are unsaturated. ?? Talk to your strategy analyst about safe sugar substitutes. ?? Avoid added [...] of Nutrition and Dietetics www.eatright.org ?? The [place] [employer] 926-562-7823 www.diabetes.org ?? [facility]an [facility], [address] [place] [address], [place] [address]. All rights reserved. This information is not [...] if you dont have one. Go to [email or web address] and click on Create Your Account. Then, follow the directions to complete the online form. Youll be asked for your [facility] number which you can find at the top of this document. Your Goals/Additional instructions: This document has images extracted. Please consider using [employer]First for all your patient education needs. Source: [facility] POWERCHART Document Id: [id number] Miscellaneous - Nato Dougherty APRN, C.N.P. - 09/23/2016 11:12 AM CDT Ambulatory Discharge Medication List [address] [id number] Visit Information Name: ONESIMO WALTON [facility] Number: [id number] Current Date: 09/23/2016 11:12:35 Attending Provider: NATO DOUGHERTY APRN TOOL DRESSER Primary Care Provider: NATO DOUGHERTY APRN TOOL DRESSER ONESIMO WALTON has been given the following [...] 12 hours NarcoticContract with [facility] 06/28/16 (scanned) rOPINIRole (rOPINIRole 2 mg oral [...] CNP Signed On:23-SEP-2016 11:12:21 Additional Information: Source: [facility] POWERCHART Document Id: [id number] Miscellaneous - Winter Singh L.P.N. - 09/23/2016 10:58 AM CDT Adult Feed Mill Manager Intake/History Adult Feed Mill Manager Intake/History Entered On: 09/23/2016 11:00 CDT [...] Preferred Communication Mode : Verbal Languages : Indonesian Is Patient Female and 13-50 no hysterectomy [...] SINGH LPN - 09/23/2016 10:58 CDT Source: [facility] Comprehensive Care Document Id: [id number] CDT!50 documented in this encounter Plan of Treatment Not on filedocumented as of this encounter Visit Diagnoses Not on filedocumented in this encounter Additional Health Concerns Assessment Noted Time PHQ-9 Depression Total Score: 7 09/23/2016 11:23 AM CD T documented as of this encounter
--- OUTSIDE RECORDS SUMMARY | 2022-04-28 14:50 | XMS_ITS | Encounter Summary ---
:1950 Author Organization [facility] Address [address] [place] [address] Care Team Providers Name Role Phone Unavailable Primary Care Provider Unavailable Encounter Details Date Type Department Care Team Description 09/20/2016 Hospital Encounter HX [facility] Nato Dougherty, Shawn PRYesika, C.N.P. [address] [place], [place] [phone] (Wo rk) Social History [...] How often do you attend samaritan or scientology services? 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 Results: Date Result Name Ind Value Ref Range 09/20/2016 08:38 Hgb A1c (H) 8.1 % A1C ( - <=5.6) Source: [employer] Document Id: [id number] Miscellaneous - Nato Dougherty APRN, C.N.P. - 09/20/2016 1:06 PM CDT From: NATO DOUGHERTY APRN WEB ASSISTANT To: ONESIMO WALTON Sent: 09/20/2016 13:06:22 CDT [...] Ratio 4.00 09/20/2016 08:38 LDL/HDL 2 Source: [employer] Document Id: [id number] Electronically signed by Conversion, [facility] Automation Clerk [id number] at 10/26/2016 4:58 AM CDT documented in [...] for FH and FDB is available throu [facility]: FH/ADH Genetic Reflex [place] el (test ADHP). Acquired (non-genetic) causes of markedly increased LDL cholesterol include cholestatic liver disease due to the presence of LpX. If a genetic form of hypercholesterolemia is suspected, family studies including biochemical testing fo r lipids (total cholesterol,triglycerides, LDL cholesterol and HDL cholesterol) are recommended. ??Please contact the laboratory at or the on-line test catalog at [employer] for information about how to order these [...]
--- OUTSIDE RECORDS SUMMARY | 2022-04-28 14:50 | XMS_ITS | Encounter Summary ---
:1950 Author Organization [facility] Address [address] [place] [address] Care Team Providers Name Role Phone Nato Dougherty APRN, C.N.P. Primary Care Provider [phone] Encounter Details Date Type Department Care Team Description 12/22/2016 Hospital Encounter HX FBCV FAMILYPRA Nato Dougherty APRN, C.N.P. [address] [place], [place] [phone] (Wo rk) Social History [...] How often do you attend evangelical or jewish services? 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 They suggested being seen for elevated blood [...] elevated at his chronic pain appointment in [place] yesterday. He is currently on metoprolol ER 200 mg daily lisinopril-hydrochlorothiazide 20- 12.5 mgdaily and amlodipine 2.5 mg daily. Depression stable on Cymbalta 30 mg twice daily. He follows in the pain clinic as an [place] for lumbar stenosis with chronic back pain. 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 Get a flu shot next month. Recheck A1c in 6 months. Ordered: OV Est Pt Level 4 - 60127 - 25 min Dysfunction Erectile (ED) NOS Worsening, checking testosterone level. I will contact him with results. 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 Increase amlodipine to 5 mg daily. Come in for blood pressure recheck in 5 days. He was given prescription for new blood pressure monitor. Low-salt diet. Ordered: OV Est Pt Level 4 - 00163 - 25 min Mcc Use Of Insulin Active Stable, no change in insulin dosages. Ordered: OV Est Pt Level 4 - 47599 - 25 min Nutritional Disorder Screening Exam Ordered: 25-Hydroxyvitamin D2 and D3-[place] 25HDN OV Est Pt Level 4 - 29312 - 25 min Pain Low Back (LBP) Chronic Stable, continue to follow with the Pain Clinic in [place]. Ordered: OV Est Pt Level 4 - 85558 - 25 min Orders: amLODIPine, 5 mg = 1 tab(s), PO, Daily, # 90 tab(s), 3 Refill(s), Maintenance, Pharmacy: [facility], [place], [place], New dose, does not need refill today. rOPINIRole, 2 mg = 1 tab(s), PO, 2xDay, with food, # 90 tab(s), 2 Refill(s), Maintenance, Pharmacy:[facility], [place] Hemoglobin A1c Return Visit [facility] 30 Min Vital Signs - Nurse Visit Electronically Signed By: NATO DOUGHERTY APRN, CNP On: 12/22/2016 10:23 AM Source: [facility] [employer]In[employer] Document Id: [id number] documented in this encounter Nursing Notes Nato [...] or tender areas of the foot ?? [id number] [place] [address]. All rights reserved. This information is not intended as a substitute for professional medical care. Always follow your healthcare professional's instructions. Source: [facility] POWERCHART Document Id: [id number] documented in this encounter Miscellaneous Notes Miscellaneous - Nato Dougherty APRN, C.N.P. - 12/28/2016 7:17 PM CDT From: NATO DOUGHERTY APRN BALANCE AND HAIRSPRING ASSEMBLER To: ONESIMO WALTON Sent: 12/28/2016 19:17:20 CDT Vitamin D level and testosterone levels are in the normal range. Results: Date Result Name Value Ref Range 12/22/2016 10:32 Testoster Free-[place] 4.32 ng/dL (3.67-13.9 - ) 12/22/2016 10:32 Testoster Tot-[place] 393 ng/dL (240-950 - ) 12/22/2016 10:32 25-Hydroxy D-[place] 45 ng/mL 12/22/2016 10:32 25-Hydroxy D2-[place] <4.0 ng/mL 12/22/2016 10:32 25-Hydroxy D3-[place] 45 ng/mL Source: [employer] Document Id: [id number] Miscellaneous - Kirill Singh, L.P.N. - 12/22/2016 [...] SINGH LPN - 12/22/2016 10:26 CDT Source: [facility] Document Id: [id number] CDT!13 Miscellaneous - Nato Dougherty APRN, C.N.P. - 12/22/2016 10:01 AM CDT Ambulatory Patient Summary [facility] [address] [place], [place] [id number] Visit Information Name: ONESIMO WALTON [facility] Number: [id number] Current Date: 12/22/2016 10:01:52 [...] day This is a CHANGE Routed to [address] [address] aspirin (aspirin 325 mg oral tablet) 1 [...] 12 hours NarcoticContract with [facility] [place] 06/28/16 (scanned) rOPINIRole (rOPINIRole 2 mg oral [...] 1-4 Active Abuse Tobacco Smoking NOS Active Mcc Use Of Insulin Active Active Your Upcoming [...] or tender areas of the foot ?? [id number] [facility], [address] [place] [address]. All rights reserved. This information is not [...] if you dont have one. Go to [email or web address] and click on Create Your Account. Then, follow the directions to complete the online form. Kumar be asked for your [facility] number which you can find at the top of this document. Your Goals/Additional instructions: Source: [facility] POWERCHART Document Id: [id number] Miscellaneous - Nato Dougherty APRN, C.N.P. - 12/22/2016 10:01 AM CDT Ambulatory Discharge Medication List [address] [id number] Visit Information Name: YOHANA ONESIMO RICHARD [facility] Number: [id number] Current Date: 12/22/2016 10:01:51 Attending Provider: NATO DOUGHERTY APRN, CNP Primary Care Provider: NATO DOUGHERTY APRN [facility] ONESIMO WALTON RICHARD has been [...] day This is a CHANGE Routed to [address] [address] aspirin (aspirin 325 mg oral tablet) 1 [...] 12 hours NarcoticContract with [facility] [place] 06/28/16 (scanned) rOPINIRole (rOPINIRole 2 mg oral [...] emergency. Electronically Signed By: NATO DOUGHERTY APRN BALANCE AND HAIRSPRING ASSEMBLER Signed On:22-DEC-2016 10:01:33 Additional Information: Source: [facility] POWERCHART Document Id: [id number] Miscellaneous - Kirill Singh L.P.N. - 12/22/2016 [...] SINGH LPN - 12/22/2016 9:41 CDT Source: [facility] POWERCHART Document Id: [id number] CDT!8 Miscellaneous - Kirill Singh L.P.N. - 12/22/2016 9:38 AM CDT Adult Oncology Coordinator Intake/History Adult Oncology Coordinator Intake/History Entered On: 12/22/2016 9:41 CDT Performed On: 12/22/2016 9:38 CDT by KIRILL SINGH LPN Intake Chief Complaint : Diabetic check. Did labs yesterday. Was seen by pain management yesterday in [place]. They suggested being seen for elevated blood [...] 12/22/2016 9:38 CDT General Info Languages : Korean Is Patient Female and 13-50 no hysterectomy [...] SINGH LPN - 12/22/2016 9:38 CDT Source: [facility] POWERCHART Document Id: [id number] CDT!34 documented in this encounter Plan of Treatment Not on filedocumented as of this encounter Visit Diagnoses Not on filedocumented in this encounter Additional Health Concerns Assessment Noted Time PHQ-9 Depression Total Score: 6 12/22/2016 10:26 AM CD T documented as of this encounter Care Teams Crewman Main Battle Tank Relationship Specialty Start Date End Date Nato Dougherty, JULIÁN, C.N.P. PCP - General 10/28/16 04/05/17 [address], [place] [phone] documented as of this encounter
--- OUTSIDE RECORDS SUMMARY | 2022-04-28 14:50 | XMS_ITS | Encounter Summary ---
:1950 Author Organization [facility] Address [address] [place] [address] Care Team Providers Name Role Phone Elsewhere, Pcp Primary Care Provider Unavailable Encounter Details Date Type Department Care Team Description 08/19/2016 Historical Ophthalmology [facility] Chalo Barahona Jr., M.D. [address] [place], [place] [phone] (Wo rk) Social History [...] How often do you attend mosque or latter day services? 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 documented as of this encounter Progress Notes [...] IOL OU CDM Reports - EYEGEN Id: [id number] Status: Fnl documented in this encounter Plan of Treatment Not on filedocumented as of this encounter Visit Diagnoses Not on filedocumented in this encounter Additional Health Concerns Infection Onset Date Last Indicated Resolved Time COVID19 Pending 05/08/2020 05/08/2020 05/08/2020 2:44 PM CLARK DRIVER Assessment Noted Time PHQ-9 Depression Total Score: 7 08/16/2016 9:01 AM CDT documented as of this encounter Care Teams Director Of Veterans Affairs Relationship Specialty Start Date End Date Elsewhere, Pcp PCP - General Family Medicine 01/29/20 documented as of this encounter
--- OUTSIDE RECORDS SUMMARY | 2022-04-28 14:50 | XMS_ITS | Encounter Summary ---
:1950 Author Organization [facility] Address [address] [place] [address] Care Team Providers Name Role Phone Unavailable Primary Care Provider Unavailable Encounter Details Date Type Department Care Team Description 06/29/2016 Hospital Encounter HX [facility] FAMILYPRA Nato Dougherty, BILLING CUSTOMER SERVICE REPRESENTATIVE, C.N.P. [address] [place], [place] [phone] (Wo rk) Social History [...] often do you attend oriental orthodox or taoist services? 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 Addendum by NATO DOUGHERTY APRN, CNP on June 29, 2016 10:04:53 SENIOR FINANCIAL From: NATO DOUGHERTY APRN CHILD PROTECTION SPECIALIST To: MITALI MÉNDEZ CMA; Sent: 06/29/2016 10:04:53 SENIOR FINANCIAL Subject: RE: *General Message Noted, thank you. From: MITALI MÉNDEZ CMA To: NATO DOUGHERTY APRN, CNP; Sent: 06/29/2016 09:47:06 SENIOR FINANCIAL Subject: *General Message Patient was in for B/P check today. Patient states' I haven't taken my medication yet today, I take it at night. B/P 156/73 Pulse 61 Five minutes later. B/P 157/71 Pulse 59 Source: [facility] Document Id: [id number] Miscellaneous - Mitali Méndez, C.M.A. - 06/29/2016 9:41 AM CST Ambulatory Vitals Height Weight Ambulatory Vitals Height Weight Entered On: 06/29/2016 9:45 SENIOR FINANCIAL Performed On: 06/29/2016 9:41 SENIOR FINANCIAL by MITALI MÉNDEZ DYNAMIC ETCHING PROCESSOR Vitals/Ht/Wt Peripheral Pulse Rate : 59 /min (LOW) Systolic Blood Pressure : 157 mmHg (HI) Diastolic Blood Pressure : 71 mmHg NIBP Mean : 100 mmHg BP Location : Left upper extremity Blood Pressure Cuff Size : Regular Height : 173 cm(Converted to: 5 ft 8 inch(es), 68 inch(es)) MITALI MÉNDEZ CMA - 06/29/2016 9:41 SENIOR FINANCIAL Source: [facility] Document Id: [id number] SENIOR FINANCIAL!9 OR FINANCIAL Miscellaneous - Mitali Méndez, C.M.A. - 06/29/2016 9:32 AM CST Ambulatory Vitals Height Weight Ambulatory Vitals Height Weight Entered On: 06/29/2016 9:34 SENIOR FINANCIAL Performed On: 06/29/2016 9:32 SENIOR FINANCIAL by MITALI MÉNDEZ [facility] Vitals/Ht/Wt Peripheral Pulse Rate : 61 /min Systolic Blood Pressure : 156 mmHg (HI) Diastolic Blood Pressure : 73 mmHg NIBP Mean : 101 mmHg BP Location : Left upper extremity Blood Pressure Cuff Size : Regular Height : 173 cm(Converted to: 5 ft 8 inch(es), 68 inch(es)) MITALI MÉNDEZ [facility] - 06/29/2016 9:32 SENIOR FINANCIAL Source: [employer] Document Id: [id number] SENIOR FINANCIAL!9 OR FINANCIAL documented in this encounter Plan of Treatment Not on filedocumented as of this encounter Visit Diagnoses Not on filedocumented in this encounter Additional Health Concerns Assessment Noted Time PHQ-9 Depression Total Score: 11 06/22/2016 10:[address] documented as of this encounter
--- OUTSIDE RECORDS SUMMARY | 2022-04-28 14:50 | XMS_ITS | Encounter Summary ---
:1950 Author Organization [facility] Address [address] [place] [address] Care Team Providers Name Role Phone Unavailable Primary Care Provider Unavailable Encounter Details Date Type Department Care Team Description 08/24/2016 Hospital Encounter HX [facility] Nato Dougherty, Shawn PRYesika, C.N.P. [address] [place], [place] [phone] (Wo rk) Social History [...] How often do you attend congregational or scientology services? 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 lancets [facility] Dispense item 0 08/23/2014 9 covered by [...] 11:50 AM CDT From: NATO DOUGHERTY APRN TRANSPORT OPERATIONS INSPECTOR To: ONESIMO WALTON Sent: 08/25/2016 11:50:15 CDT Onesimo Colon screen is negative. Nato Results: Date Result Name Value Ref Range 08/24/2016 15:18 FIT/Fecal Occult Bld-Amanda Negative (Negative - ) Source: [facility] POWERCHART Document Id: [id number] Electronically signed by Conversion, [facility] Gauge Maker [id number] at 10/26/2016 7:21 AM CDT documented in [...] if clinically indicated. Test Performed by: [address] [address] Specimen (Source) Anatomical Collection Method Collection Time [...]
--- OUTSIDE RECORDS SUMMARY | 2022-04-28 14:50 | XMS_ITS | Encounter Summary ---
:1950 Author Organization [facility] Address [address] [place] [address] Care Team Providers Name Role Phone Unavailable Primary Care Provider Unavailable Encounter Details Date Type Department Care Team Description 06/22/2016 Hospital Encounter HX [facility]ILY[facility] Nato Dougherty, HEDIS REGISTERED NURSE RN, C.N.P. [address] [place], [place] [phone] (Wo rk) Social History [...] How often do you attend muslim or zoroastrian services? 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 STAFF PHYSICIAN documented as of this encounter Last Filed Vital Signs Vital Sign Reading Time Taken Comments Blood Pressure 164/88 06/22/2016 9:14 AM STAFF PHYSICIAN Pulse 72 06/22/2016 9:11 AM STAFF PHYSICIAN Temperature - - Respiratory Rate 20 06/22/2016 9:11 AM STAFF PHYSICIAN Oxygen Saturation - - Inhaled Oxygen Concentration - - Weight 73.2 kg (161 lb 6 oz) 06/22/2016 9:11 AM STAFF PHYSICIAN Height 173 cm (5' 8.11) 06/22/2016 9:14 AM STAFF PHYSICIAN Body Mass Index 24.46 06/22/2016 9:11 AM STAFF PHYSICIAN documented in this encounter Medications at Time [...] of this encounter Progress Notes Nato Dougherty, HEDIS REGISTERED NURSE RN, C.N.P. - 06/22/2016 10:25 AM CST Clinic Full Note CHIEF COMPLAINT/REASON FOR VISIT [facility] care. Diabetic. Needs refills on medications. Has chronic leg pain. HISTORY OF PRESENT ILLNESS This is Onesimo's first visit to [facility] in [place]. He was previously seen at [facility]. He is requesting old records. He has diabetes type 2 with neuropathy, uncontrolled. States last A1c was over 8. He has been on chronic narcotic pain medication for neuropathy. He does not tolerate Lyrica. We discussed having him seen in a Pain Clinic. He prefers to go to [place]. He has hypertension, blood pressure elevated on [...] Ordered: OV New Pt Level 4 - 55341 - 45 min DM2 Peripheral Neuropathy Uncontrolled Last A1c over 8.0. Checking lab today. Insulin prescriptions refilled. Diabetes education done today. Please see Hollock Maker Intake form in the Electronic Health Record. He has been on chronic narcotics for peripheral neuropathy. Scheduling consult in the [place] [facility]. Ordered: Basic Metabolic Panel, Fasting* Hemoglobin A1c Lipid Panel* OV New Pt Level 4 - 61311 - 45 min UR Microalbumin Random Encounter for screening for malignant neoplasm of colon Ordered: OV New Pt Level 4 - 02495 - 45 min Gastroesophageal Reflux Disease (GERD ALEXANDRA) NOS Stable on omeprazole, refill provided. Ordered: OV New Pt Level 4 - 36366 - 45 min Gout Arthritis Stable on colchicine. No change in medication. Ordered: OV New Pt Level 4 - 80363 - 45 min Uric Acid Hypertension (HTN) Essential Primary NOS Elevated on 2 checks today. Continue lisinopril-hydrochlorothiazide and recheck blood pressure in one week. Ordered: OV New Pt Level 4 - 07648 - 45 min Thyroid Stimulating Hormone Orders: insulin lispro, 5-10 units, Subcut., 3xDayAC, # 15 mL, 2 Refill(s), Maintenance, Pharmacy: [facility], [place], [place] metoprolol, 200 mg = 1 tab(s), PO, Daily, do not crush or chew, # 30 tab(s), 5 Refill(s), Maintenance, Pharmacy: [facility], [place], [place] omeprazole, 20 mg = 1 cap(s), PO, Daily, # 30 cap(s), 11 Refill(s), Maintenance, Pharmacy: [facility], [place] oxyCODONE-acetaminophen, 1-2 tab(s), PO, 3xDay, PRN Pain, # 90 tab(s), 0 Refill(s), Maintenance Occult Blood QL [facility], [place] [address] Vital Signs - Nurse Visit Electronically Signed By: NATO DOUGHERTY APRN, CNP On: 06/22/2016 10:55 AM Source: [facility] POWERCHART Document Id: [id number] F PHYSICIAN documented in this encounter Nursing Notes Nato Dougherty APRN, C.N.P. - 06/22/2016 10:56 AM CST Hollock Maker Intake (Adult) Hollock Maker Intake (Adult) Entered On: 06/22/2016 10:58 STAFF PHYSICIAN Performed On: 06/22/2016 10:56 STAFF PHYSICIAN by NATO DOUGHERTY APRN, CNP Assessment Program Type : Non-Program Diabetes Referring Provider : NATO DOUGHERTY APRN, CNP Special needs : None Method Used for DSME : Individual Last Educator Visit Date : 06/22/2016 STAFF PHYSICIAN Diabetes Type : Type 2 19 years and older Ethnicity : White/ Diabetes Onset : 1995 Diabetes Onset At Age : 46 years Current Treatment : Insulin vial Medication Compliance : Takes meds as prescribed Diabetes Medications Reviewed : Yes Time Spent With Patient : 15 Minutes NATO DOUGHERTY APRN, CNP - 06/22/2016 10:56 STAFF PHYSICIAN Education Diabetes Education Grid Topics : Problem Solving/Goal Setting - Treatment/Management Goals Individuals Taught : Patient Barriers to Learning : None evident Teaching Method : Explanation, Printed materials Teaching Evaluation : Verbalizes understanding NATO DOUGHERTY APRN, CNP - 06/22/2016 10:56 STAFF PHYSICIAN Comprehensive Program Goals Diabetes Education Goals Grid Diabetes Education Goal #1 row Diabetes Education Goal #2 row Diabetes Education Goal #3 row Date Goal Set : 06/22/2016 STAFF PHYSICIAN 06/22/2016 STAFF PHYSICIAN 06/22/2016 STAFF PHYSICIAN Goal : A1c less than 7-8 Annual eye exam Blood pressure less than 140/90 Related Content Area : Healthy eating Reducing risks Medication NATO DOUGHERTY APRN [facility] - 06/22/2016 10:56 STAFF PHYSICIAN NATO DOUGHERTY APRN [facility] - 06/22/2016 10:56 STAFF PHYSICIAN NATO DOUGHERTY APRN [facility] - 06/22/2016 10:56 STAFF PHYSICIAN Source: [facility] KedzohCHART Document Id: [id number] STAFF PHYSICIAN!37 F PHYSICIAN Nato Dougherty APRN, C.N.P. - 06/22/2016 9:41 [...] or tender areas of the foot ?? [id number] [place] [address]. All rights reserved. This information is not intended as a substitute for professional medical care. Always follow your healthcare professional's instructions. Source: [facility] POWERCHART Document Id: [id number] F PHYSICIAN documented in this encounter Miscellaneous Notes Miscellaneous - Nato Dougherty APRN, C.N.P. - 06/22/2016 1:58 PM CST Schedule Follow-Up Visit June 22, [address] [id number] [facility] [phone] Dear ONESIMO WALTON, Thank you for choosing [facility] for your health care needs. [...] EGFR (MDRD) (mL/min/1.73m2) >60 06/22/2016 >=60 - [id number] (mg/dL) 24 06/22/2016 8 - 24 Calcium [...] Absolute (x10(9)/L) 2.80 06/22/2016 0.90 - 2.90 [place] Absolute (x10(9)/L) (H) 1.07 06/22/2016 0.30 - 0.90 Eos Absolute (x10(9)/L) (H) 0.68 06/22/2016 0.05 - 0.50 Baso Absolute (x10(9)/L) 0.04 06/22/2016 0.00 - 0.30 Sincerely, NATO DOUGHERTY [address] [place] [address] Electronic Signature Electronically Signed By: NATO DOUGHERTY APRN, CNP On: June 22, 2016 This document has images extracted. Source: [facility] POWERCHART Document Id: [id number] Electronically signed by Conversion, [facility] Job Tracer [id number] at 10/25/2016 11:39 PM CDT Miscellaneous - Nato Dougherty APRN, C.N.P. - 06/22/2016 10:58 AM STAFF PHYSICIAN Quality Measures Quality Measures Entered On: 06/22/2016 10:59 STAFF PHYSICIAN Performed On: 06/22/2016 10:58 STAFF PHYSICIAN by NATO DOUGHERTY APRN, CNP Diabetes Date of Last Foot Exam : 06/22/2016 STAFF PHYSICIAN Date of Last Diabetes Education : 06/22/2016 STAFF PHYSICIAN NATO DOUGHERTY APRN, CNP - 06/22/2016 10:58 STAFF PHYSICIAN Foot Exam Grid Left foot exam Right foot exam Dorsalis Pedis Pulse : Normal Normal Capillary Refill : Less than 3 seconds Less than 3 seconds 10 gm Monofilament Sensation Check : Intact Intact NATO DOUGHERTY APRN, CNP - 06/22/2016 10:58 STAFF PHYSICIAN NATO DOUGHERTY APRN, CNP - 06/22/2016 10:58 STAFF PHYSICIAN Source: [facility] KedzohCHART Document Id: [id number] STAFF PHYSICIAN!13 F PHYSICIAN Miscellaneous - Winter Singh L.P.N. - 06/22/2016 10:05 AM CST PHQ-9 PHQ-9 Entered On: 06/22/2016 10:05 STAFF PHYSICIAN Performed On: 06/22/2016 10:05 STAFF PHYSICIAN by WINTER SINGH LPN PHQ-9 Little interest [...] difficult WINTER SINGH LPN - 06/22/2016 10:05 STAFF PHYSICIAN Source: [facility] [email or web address] Document Id: [id number] STAFF PHYSICIAN!13 F PHYSICIAN Kelsi - Nato Dougherty APRN, C.N.P. - 06/22/2016 9:41 AM CST Ambulatory Patient Summary [address] [id number] Visit Information Name: ONESIMO WALTON [facility] Number: [id number] Current Date: 06/22/2016 09:41:23 Physicians [...] a day before meals New Routed to [facility] [address] [place] [address] lisinopril-hydroCHLOROthiazide (lisinopril-hydroCHLOROthiazide 20mg-12.5mg oral tablet) 1 Tablet(s),Oral, once a day metoprolol (Metoprolol Succinate ER 200 mg oral tablet, extended release) 1 Tablet(s), Oral, once a day do not crush or chew New Routed to [facility] [address] [place] [address] multivitamin with minerals (Centrum Silver Men's oral tablet) omeprazole (omeprazole 20 mg oral delayed release capsule) 1 cap, Oral, once a day New Routed to [facility] [address] [place] [address] oxyCODONE (OxyCONTIN 30 mg oral [...] or tender areas of the foot ?? [id number] [place] [address]. All rights reserved. This information is not [...] if you dont have one. Go to [email or web address] and click on Create Your Account. Then, follow the directions to complete the online form. Youll be asked for your [facility] number which you can find at the top of this document. Your Goals/Additional instructions: Source: [facility] POWERCHART Document Id: [id number] F PHYSICIAN Miscellaneous - Nato Dougherty APRN, C.N.P. - 06/22/2016 9:41 AM CST Ambulatory Discharge Medication List [address] [place] [id number] Visit Information Name: ONESIMO WALTON [facility] Number: [id number] Current Date: 06/22/2016 09:41:22 Attending Provider: NATO DOUGHERTY APRN [facility] Primary Care Provider: PCP, ELSEWHERE ONESIMO [...] a day before meals New Routed to [facility] [address] [place] [address] lisinopril-hydroCHLOROthiazide (lisinopril-hydroCHLOROthiazide 20mg-12.5mg oral tablet) 1 Tablet(s),Oral, once a day metoprolol (Metoprolol Succinate ER 200 mg oral tablet, extended release) 1 Tablet(s), Oral, once a day do not crush or chew [facility] [address] [place], [place] [id number] multivitamin with minerals (Centrum Silver Men's oral tablet) omeprazole (omeprazole 20 mg oral delayed release capsule) 1 cap, Oral, once a day [facility] [address] [place] [address] oxyCODONE (OxyCONTIN 30 mg oral tablet, extended [...] emergency. Electronically Signed By: NATO DOUGHERTY APRN MEDIA SALES CONSULTANT Signed On:22-JUN-2016 09:41:05 Additional Information: Source: [facility] KedzohCHART Document Id: [id number] F PHYSICIAN Miscellaneous - Winter Singh L.P.N. - 06/22/2016 9:14 AM CST Ambulatory Vitals Height Weight Ambulatory Vitals Height Weight Entered On: 06/22/2016 9:16 STAFF PHYSICIAN Performed On: 06/22/2016 9:14 STAFF PHYSICIAN by WINTER SINGH LPN Vitals/Ht/Wt Systolic Blood Pressure : 164 mmHg (>HHI) Diastolic Blood Pressure : 88 mmHg NIBP Mean : 113 mmHg BP Location : Right upper extremity Blood Pressure Cuff Size : Regular Height : 173 cm(Converted to: 5 ft 8 inch(es), 68 inch(es)) WINTER SINGH LPN - 06/22/2016 9:14 STAFF PHYSICIAN Source: [facility] POWERCHART Document Id: [id number] STAFF PHYSICIAN!8 F PHYSICIAN Miscellaneous - Winter Singh L.P.N. - 06/22/2016 9:11 AM CST Adult Complaint Specialist Intake/History Adult Complaint Specialist Intake/History Entered On: 06/22/2016 9:14 STAFF PHYSICIAN Performed On: 06/22/2016 9:11 STAFF PHYSICIAN by WINTER SINGH LPN Intake Chief Complaint [...] kg/m2 WINTER SINGH LPN - 06/22/2016 9:11 STAFF PHYSICIAN General Info Information Given By : Patient Preferred Communication Mode : Verbal Languages : Portuguese Is Patient Female and 13-50 no hysterectomy : No WINTER SINGH LPN - 06/22/2016 9:11 STAFF PHYSICIAN Subjective Pain Symptoms : Yes WINTER SINGH LPN - 06/22/2016 9:11 STAFF PHYSICIAN Pain Scale Pain Scale Verbal 0-10 : Open WINTER SINGH LPN - 06/22/2016 9:11 STAFF PHYSICIAN Pain Pain Assessment Grid Pain 1 Pain 2 Location : Lower leg Upper leg Laterality : Bilateral Bilateral Intensity : 8 5 Time Pattern : Chronic, Constant Chronic, Constant WINTER SINGH LPN - 06/22/2016 9:11 STAFF PHYSICIAN WINTER SINGH LPN - 06/22/2016 9:11 STAFF PHYSICIAN Dependent Habits Exposure to Tobacco Smoke : Patient smokes Smoking Status : Current every day smoker Tobacco 2A : Yes Tobacco Use/Currently Using : Yes Tobacco Use/Last 30 Days : Yes Tobacco Use/Last 12 months : Yes Type : Cigarettes: Less than 20 per day Tobacco Use/Advised to Quit : Yes Alcohol Use : Yes WINTER SINGH LPN - 06/22/2016 9:11 STAFF PHYSICIAN Source: [facility] POWERCHART Document Id: [id number] STAFF PHYSICIAN!49 F PHYSICIAN Miscellaneous - Winter Singh LFeiP.NFei - 06/22/2016 9:09 AM CST Health Assessment Health Assessment Entered On: 06/22/2016 9:11 STAFF PHYSICIAN Performed On: 06/22/2016 9:09 STAFF PHYSICIAN by WINTER SINGH LPN Health Assessment Complete Health Assessment Complete or Modified : Annual Health Assessment Annual Health Assessment Completed : Yes WINTER SINGH LPN - 06/22/2016 9:09 STAFF PHYSICIAN Nutrition Nutrition Risk Factors by History Adult : None WINTER SINGH LPN - 06/22/2016 9:09 STAFF PHYSICIAN Functional Current Daily Living Assistance : None WINTER SINGH LPN - 06/22/2016 9:09 STAFF PHYSICIAN Dependent Habits Exposure to Tobacco Smoke : Patient smokes Smoking Status : Current every day smoker Tobacco 2A : Yes Tobacco Use/Currently Using : Yes Tobacco Use/Last 30 Days : Yes Tobacco Use/Last 12 months : Yes Type : Cigarettes: Less than 20 per day Tobacco Use/Advised to Quit : Yes Alcohol Use : Yes WINTER SINGH LPN - 06/22/2016 9:09 STAFF PHYSICIAN AUDIT Tool How Often Do You Have A Drink : 2 to 3 times a week How Many Drinks in a Day When Drinking : 1 or 2 Six or More Drinks On One Occassion : Never Audit Phase 1 Score : 3 WINTER SINGH LPN - 06/22/2016 9:09 STAFF PHYSICIAN Psychosocial Domestic Abuse Concerns : None Behavioral Health Screen/Safety Assmt : No Worship Preference : Unknown WINTER SINGH LPN - 06/22/2016 9:09 STAFF PHYSICIAN Advance Directive Advanced Directives : No Advance Directive Additional Information : Yes WINTER SINGH CYNTHIA - 06/22/2016 9:09 STAFF PHYSICIAN Educ Needs Learning Style Preference Adult Grid Patient : Printed materials, Verbal explanation Family : Verbal explanation, Printed materials WINTER SINGH CYNTHIA - 06/22/2016 9:09 STAFF PHYSICIAN Source: [facility] POWERCHART Document Id: [id number] STAFF PHYSICIAN!34 F PHYSICIAN documented in this encounter Plan of Treatment Not on filedocumented as of this encounter Procedures Procedure Name Priority Date/Time Associated Comments Diagnosis ALBUMIN, RANDOM, U Routine 06/22/2016 9:55 AM Res ults for this STAFF PHYSICIAN procedure are i n the results section. LIPID PANEL, S Routine 06/22/2016 9:53 AM Results for this STAFF PHYSICIAN procedure are i n the results section. AUTOMATED Routine 06/22/2016 9:53 AM Results f or this DIFFERENTIAL, B STAFF PHYSICIAN procedure ar e in the results section. CBC WITH Routine 06/22/2016 9:53 AM Results f or this DIFFERENTIAL, B STAFF PHYSICIAN procedure ar e in the results section. URIC ACID, S/P Routine 06/22/2016 9:53 AM Results for this STAFF PHYSICIAN procedure are i n the results section. THYROID-STIMULATING Routine 06/22/2016 9:53 AM Re sults for this HORMONE-SENSITIVE STAFF PHYSICIAN procedure are in (S-TSH) the results section. HEMOGLOBIN A1C, B Routine 06/22/2016 9:53 AM Resu lts for this STAFF PHYSICIAN procedure are i n the results section. BASIC METABOLIC Routine 06/22/2016 9:53 AM Result s for this PANEL, S/P STAFF PHYSICIAN procedure are i n the results section. documented in this encounter Results (ABNORMAL) Microalbumin, Random, Urine (06/22/2016 9:55 AM STAFF PHYSICIAN) P athologist Signature Creatinine, 33 (L) 40 - 278 POWERCHART Random, U MGDL HXU Albumin % 96.8 MGL POWERCHART Albumin/Creati 294 (H) 0 - 17 MGG POWERCHART nine Ratio Specimen (Source) Anatomical Collection Method Collection Time Re ceived Time Location / / Volume Laterality Urine 06/22/2016 9:55 AM STAFF PHYSICIAN Nato Dougherty APRN, C.N.P. LAB URINE ORDERABLES Performing Organization Address City/[facility]/ZIP Code Phon e Number POWERCHART (ABNORMAL) Automated Differential (06/22/2016 9:53 AM STAFF PHYSICIAN) Patholo gist Method Time Signature Absolute 9.90 [...] Laterality Blood 06/22/2016 9:53 AM 7 9:53 STAFF PHYSICIAN AM STAFF PHYSICIAN Jennifer Stinson APRNNRinku. LAB BLOOD ADD-ON Performing Organization Address [facility] Phon e Number POWERCHART (ABNORMAL) CBC with Differential (06/22/2016 9:53 AM STAFF PHYSICIAN) Analysis Performed At Patho logist Time Signature Leukocytes 14.5 (H) 3.5 - 10.5 POWERCHART X109L Erythrocytes 4.05 (L) 4.32 - POWERCHART 5.72 [id number] Hemoglobin 13.3 (L) 13.5 - POWERCHART 17.5 GDL Hematocrit 38.7 (L) 38.8 - POWERCHART 50.0 MCV 95.6 (H) 81.0 - POWERCHART 95.0 FL HX RDW 13.3 11.8 - POWERCHART 15.6 Platelet Count 211 150 - 450 POWERCHART X109L Specimen (Source) Anatomical Collection Method Collection Time Re ceived Time Location / / Volume Laterality Blood 06/22/2016 9:53 AM STAFF PHYSICIAN Jennifer Stinson APRNN.P. LAB BLOOD ADD-ON Performing Organization Address City/[facility]/ZIP Code Phon e Number POWERCHART Uric Acid (06/22/2016 9:53 AM STAFF PHYSICIAN) P athologist Signature Uric Acid, S 8.0 3.7 - 8.0 POWERCHART MGDL Specimen (Source) Anatomical Collection Method Collection Time Re ceived Time Location / / Volume Laterality Blood 06/22/2016 9:53 AM STAFF PHYSICIAN William Stinson APRN.N.P. LAB BLOOD ADD-ON Performing Organization Address City/State/ZIP Code Phon e Number POWERCHART Thyroid-Stimulating Hormone-Sensitive (s-TSH) (06/22/2016 9:53 AM STAFF PHYSICIAN) P athologist Signature TSH 1.09 0.27 - [...] / Volume Laterality Blood 06/22/2016 9:53 AM STAFF PHYSICIAN Nato Dougherty APRN, C.N.P. LAB BLOOD ADD-ON Performing Organization Address City/State/ZIP Code Phon e Number POWERCHART (ABNORMAL) Lipid Panel (06/22/2016 9:53 AM STAFF PHYSICIAN) P athologist Signature Cholesterol, 179 <=199 MGDL [...] for FH and FDB is available elda [facility]: FH/ADH Genetic Reflex [...] at or the on-line test catalog at [employer] for information about how to order these damion ts or to speak with a genetic counselor. Further interpretation would require clinical information. Total Cholesterol/HDL Ratio 5.00 PO WERCHART HXLDL/HDL 3 POWERCHART Specimen (Source) Anatomical Collection Method Collection Time Re ceived Time Location / / Volume Laterality Blood 06/22/2016 9:53 AM STAFF PHYSICIAN Nato Dougherty APRN, C.N.P. LAB BLOOD ADD-ON Performing Organization Address City/State/ZIP Code Phon e Number POWERCHART (ABNORMAL) Hemoglobin A1c (06/22/2016 9:53 AM STAFF PHYSICIAN) P athologist Signature Hemoglobin A1c, 8.4 (H) <=5.6 A1C POWERCHART B Specimen (Source) Anatomical Collection Method Collection Time Re ceived Time Location / / Volume Laterality Blood 06/22/2016 9:53 AM STAFF PHYSICIAN Nato Dougherty APRN, C.N.P. LAB BLOOD ADD-ON Performing Organization Address City/State/ZIP Code Phon e Number POWERCHART (ABNORMAL) BMP (Basic Metabolic Panel) (06/22/2016 9:53 AM STAFF PHYSICIAN) P athologist Signature Sodium, S 141 135 [...] MMOLL POWERCHART HXeGFR (MDRD) 51 (L) >=60 [id number] POWERCHART eGFR Black/ >60 >=60 [id number] POWERCHART Specimen (Source) Anatomical Collection Method Collection Time Re ceived Time Location / / Volume Laterality Blood 06/22/2016 9:53 AM STAFF PHYSICIAN Nato Dougherty APRN, C.N.P. LAB BLOOD ADD-ON Performing Organization Address City/State/ZIP Code Phon e Number POWERCHART documented in this encounter Visit Diagnoses Not on filedocumented in this encounter Additional Health Concerns Assessment Noted Time PHQ-9 Depression Total Score: 11 06/22/2016 10:[address] documented as of this encounter
--- OUTSIDE RECORDS SUMMARY | 2022-04-28 14:50 | XMS_ITS | Encounter Summary ---
:1950 Author Organization [facility] Address [address] [place] [address] Care Team Providers Name Role Phone Nato Dougherty APRN C.N.P. Primary Care Provider [phone] Encounter Details Date Type Department Care Team Description 02/10/2017 Hospital Encounter HX FBCV FAMILYPRA Cheri Santo M.D. [address] [place] [phone] (Wo rk) Social History Tobacco Use [...] How often do you attend moravian or latter day services? 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 - 02/10/2017 10:26 AM CDT [id number] CHIEF COMPLAINT/ REASON FOR VISIT Discuss leg [...] receiving treatment from [facility] in [place]. The provider he sees [facility] has been treating his leg [...] HISTORY [place] is [place]. FAMILY HISTORY Mother at 91 of old [...] arterial disease. Will obtain AB[facility] at the [facility] 2. Avulsed toenail with probable underlying infection with evidence of early osteomyelitis on x-ray.X-ray results were reviewed. Prescriptions were sent to his pharmacy for Cipro 750 mg twice daily for 10 days and Clindamycin 300 mg every 6 hours for 10 days. Culture results are pending. Will refer to [facility] for further evaluation. [...] behalf by Marie Peterson, a trained medical insurance claims specialist. The creation of this record is based on the scribe's personal observations and the provider's statements to them. This document has been parul cked and approved by the attending provider. Cheri Quiros M.D./puja Electronically Signed By: CHERI VELAZQUEZ MD On: 02/11/2017 05:17 PM Source: [facility] MHSDOLBEYNONRADSYS Document Id: [id number] documented in this encounter Nursing Notes Quyen Umaña L.P.N. - 02/10/2017 4:29 PM CDT MIMI notified Onesimo of MIMI appt in [facility] on 02/14 at [address] César Carrasco on 02/16 at 7:45 [facility] 4 floor desk 4 [facility]; [phone] Electronically Signed By: QUYEN UMAÑA LPN On: 02/10/2017 04:42 PM Source: [facility] POWERCHART Document Id: [id number] documented in this encounter Miscellaneous Notes Miscellaneous [...] Refills: 3 Substitutions Allowed Route To Pharmacy [facility] [place] Signed by NATO DOUGHERTY APRN, CNP 03/07/2017 11:12:42 From: VEE LOVING ([facility] Yarn Cleaner) To: NATO DOUGHERTY APRN, CNP; Sent: 03/07/2017 10:53:22 CDT Subject: Med Management On hold pending signature Order:lisinopril-hydroCHLOROthiazide (lisinopril-hydroCHLOROthiazide 20mg-12.5mg oral tablet) 1 tab(s) PO Daily Qty: 90 tab(s) Refills: 3 Substit[facility] [place] Document[facility] Discontinue:lisinopril-hydroCHLOROthiazide (lisinopril-hydroCHLOROthiazide 20mg- 12.5mg oral tablet) Signed by VEE LOVING 03/07/2017 10:52:46 Source: [facility] [employer] Document Id: [id number] Miscellaneous - Conversion, Historical Provider Ser - 03/02/2017 10:31 AM CDT Med Management Document Contains Addenda Addendum by NATO DOUGHERTY APRN, CNP on March 02, 2017 11:36:53 CDT From: NATO DOUGHERTY APRN, CNP Sent: 03/02/2017 11:36:53 CDT Subject: RE:Med Management Approved Order:insulin lispro (HumaLOG KwikPen 100 units/mL subcutaneous solution) 5-10 units Subcut. 3xDayAC Qty: 15 mL Refills: 2 Substitutions Allowed Route To Pharmacy [place], [place] Signed by NATO DOUGHERTY APRN, CNP 03/02/2017 11:36:49 From: LAITH TRONCOSO ([facility] Yarn Cleaner) To: NATO DOUGHERTY APRN, CNP; Sent: 03/02/2017 10:31:35 CDT Subject: Med Management On hold pending signature Order:insulin lispro (HumaLOG KwikPen 100 units/mL subcutaneous solution) 5-10 units Subcut. 3xDayAC Qty: 15 mL Refills: 2 Substitutions Allowed Route To [place], [place] Source: [employer]) Document Id: [id number] Miscellaneous - Arnaud Yin - 02/28/2017 1:12 PM CDT Med Management Document Contains Addenda Addendum by NATO DOUGHERTY APRN, CNP on February 28, 2017 14:38:19 CDT From: NATO DOUGHERTY APRN, CNP Sent: 02/28/2017 14:38:19 CDT Subject: RE:Med Management Approved Order:insulin glargine (Lantus 100 units/mL subcutaneous solution) 0.3 mL Subcut. Bedtime Qty: 9 mL Refills: 3 Substitutions Allowed Route To [facility] [place] Signed by NATO DOUGHERTY APRN, CNP 02/28/2017 14:38:14 From: ARNAUD YIN ([facility] Yarn Cleaner) To: NATO DOUGHERTY APRN, CNP; Sent: 02/28/2017 13:12:56 CDT Subject: Med Management On hold pending signature Order:insulin glargine (Lantus 100 units/mL subcutaneous solution) 0.3 mL Subcut. Bedtime Qty: 9 mL Refills: 3 Substitutions Allowed Route To [facility] [place] Documented Discontinue:insulin glargine (Lantus 100 units/ml subcutaneous solution) Signed by ARNAUD YIN 02/28/2017 13:11:27 Source: [employer] Document Id: [id number] Miscellaneous - Cheri Catalan M.D. - 02/10/2017 12:32 PM CDT Addendum by QUYEN UMAÑA LPN on February 10, 2017 15:59:15 CDT done From: CHERI VELAZQUEZ MD To: FINESSE Lacy Nurse; Sent: 02/10/2017 12:32:48 CDT Please arrange for MIMI bilateral at D1 Source: [employer] Document Id: [id number] Miscellaneous - Quyen Umaña L.P.N. - 02/10/2017 11:04 AM CDT Adult Administrative Services Manager Intake/History Adult Administrative Services Manager Intake/History Entered On: 02/10/2017 11:07 CDT Performed On: 02/10/2017 11:04 CDT by QUYEN UMAÑA LPN Intake Chief Complaint : f/u from Pain consult in [place] Temperature Core : 36.3 DegC(Converted to: 97.3 [...] Information Given By : Patient Languages : South Sudanese Is Patient Female and 13-50 no hysterectomy [...] UMAÑA LPN - 02/10/2017 11:04 CDT Source: [facility] POWERCHART Document Id: [id number] CDT!40 documented in this encounter Plan of [...] documented as of this encounter Care Teams Fleet Salesperson Relationship Specialty Start Date End Date Nato Dougherty, JULIÁN, C.N.P. PCP - General 10/28/16 04/05/[address] [address] documented as of this encounter
--- OUTSIDE RECORDS SUMMARY | 2022-04-28 14:50 | XMS_ITS | Encounter Summary ---
:1950 Author Organization [facility] Address [address] [place] [address] Care Team Providers Name Role Phone Unavailable Primary Care Provider Unavailable Encounter Details Date Type Department Care Team Description 08/16/2016 Hospital Encounter HX FBCV FAMILYPRA Nato Dougherty, DATA ENTRY PROCESSOR, C.N.P. [address] [place], [place] [phone] (Wo rk) Social History [...] How often do you attend yazidism or mu-ism services? 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 lancets [facility] Dispense item 0 08/23/2014 9 covered by [...] is following at the [facility] in [place], has an appointment tomorrow to discuss an [...] tab(s), Narcotic Contract with [facility] [place] 06/28/16 (scanned), PO, q12hr, 0 refills rOPINIRole [...] Ordered: OV Est Pt Level 4 - [address]7076 - 25 min DM2 Peripheral Neuropathy Uncontrolled Uncontrolled, continue working on diet and exercise. Recheck A1c in 1 month. Scheduling eye exam with Dr. Holland. Ordered: OV Est Pt Level 4 - 95094 - 25 min Encounter for immunization Adacel given. Ordered: tetanus/diphth/pertuss (Tdap) adult/adol, 0.5 mL, IM, Once, 08/16/16 8:35:00 CDT OV Est Pt Level 4 - 33913 - 25 min tetanus/diphtheria/pertussis, acel (Tdap) (Adacel (Tdap)) adult vaccine charge Hypertension (HTN) Essential Primary NOS Uncontrolled, adding amlodipine 2.5 mg daily. Recheck blood pressure in one week. Ordered: OV Est Pt Level 4 - 10384 - 25 min XR Chest 2 Views Hypertriglyceridemia Start atorvastatin 20 mg daily. Recheck fasting lipids and AST in one month. Ordered: atorvastatin, 20 mg = 1 tab(s), PO, Bedtime, # 90 tab(s), 3 Refill(s), Maintenance, [facility] [place] OV Est Pt Level 4 - [address] - 25 min Orders: amLODIPine, 2.5 mg = 1 tab(s), PO, Daily, # 60 tab(s), 0 Refill(s), Maintenance, [facility] [place] AST Basic Metabolic Panel, Fasting* Consult to Ophthalmology Hemoglobin A1c Lipid Panel* Occult Blood QL [facility], [facility] [address] Return Visit Fam Med UR Microalbumin Random Electronically Signed By: NATO DOUGHERTY APRN NEGATIVE STRIPPER On: 08/16/2016 10:40 AM Source: [facility] POWERCHART Document Id: [id number] documented in this encounter Nursing Notes Nato [...] or tender areas of the foot ?? 4421-1798 [facility], [address] [place] [address], [place] [address]. All rights reserved. This information is not intended as a substitute for professional medical care. Always follow your healthcare professional's instructions. Source: [facility] [employer] Document Id: [id number] documented in this encounter Miscellaneous Notes Miscellaneous - Nato Dougherty APRN, C.N.P. - 08/16/2016 10:42 AM CDT From: NATO DOUGHERTY APRN NEGATIVE STRIPPER To: ONESIMO WALTON Sent: 08/16/2016 10:42:15 CDT Onesimo, Chest x-ray is negative. Nato Source: [facility] [employer] Document Id: [id number] Electronically signed by Rajesh [facility] Weather Strip Mechanic [id number] at 10/26/2016 7:21 AM CDT Miscellaneous - [...] SINGH LPN - 08/16/2016 9:01 CDT Source: [facility] [employer] Document Id: [id number] CDT!13 Miscellaneous - Nato Dougherty APRN, C.N.P. - 08/16/2016 8:34 AM CDT Ambulatory Patient Summary [address] [id number] Visit Information Name: ONESIMO WALTON [facility] Number: [id number] Current Date: 08/16/2016 08:34:30 Physicians Attending Provider: NATO DOUGHERTY APRN NEGATIVE STRIPPER Primary Care Provider: NATO DOUGHERTY APRN [facility] ONESIMO WALTON has been given the [...] Oral, once a day New Routed to [facility] [address] [place] [address] aspirin (aspirin 325 mg oral tablet) 1 Tablet(s), Oral, once a day atorvastatin (atorvastatin 20 mg oral tablet) 1 Tablet(s), Oral, once a day (at bedtime) New Routed to [facility] [address] [place] [address] colchicine (colchicine 0.6 mg oral tablet) 1 [...] 12 hours NarcoticContract with [facility] [place] 06/28/16 (scanned) rOPINIRole (rOPINIRole 2 mg oral [...] or tender areas of the foot ?? 5005-1252 [facility], [address] [place] [address], [place] [address]. All rights reserved. This information is not [...] if you dont have one. Go to [email or web address] and click on Create Your Account. Then, follow the directions to complete the online form. Youll be asked for your [facility] number which you can find at the top of this document. Your Goals/Additional instructions: Source: [facility] POWERCHART Document Id: [id number] Miscellaneous - Nato Dougherty APRN, C.N.P. - 08/16/2016 8:34 AM CDT Ambulatory Discharge Medication List [address] [id number] Visit Information Name: YOHANAONESIMO ADAMS [facility] Number: [id number] Current Date: 08/16/2016 08:34:28 Attending Provider: NATO DOUGHERTY APRN NEGATIVE STRIPPER Primary Care Provider: NATO DOUGHERTY APRN NEGATIVE STRIPPER ONESIMO WALTON RICHARD has been given the [...] Oral, once a day New Routed to [address] [address] aspirin (aspirin 325 mg oral tablet) 1 Tablet(s), Oral, once a day atorvastatin (atorvastatin 20 mg oral tablet) 1 Tablet(s), Oral, once a day (at bedtime) New Routed to [address] [address] colchicine (colchicine 0.6 mg oral [...] 12 hours NarcoticContract with [facility] [place] 06/28/16 (scanned) rOPINIRole (rOPINIRole 2 mg oral [...] emergency. Electronically Signed By: NATO DOUGHERTY APRN NEGATIVE STRIPPER Signed On:16-AUG-2016 08:34:07 Additional Information: Source: [facility] POWERCHART Document Id: [id number] Miscellaneous - Winter Singh L.P.N. - 08/16/2016 [...] SINGH LPN - 08/16/2016 8:14 CDT Source: [facility] GrooveCHART Document Id: [id number] CDT!8 Brooklyncellaneous - Winter Singh L.P.N. - 08/16/2016 8:11 AM CDT Adult Subscription Agent Intake/History Adult Subscription Agent Intake/History Entered On: 08/16/2016 8:14 CDT Performed [...] Preferred Communication Mode : Verbal Languages : South Korean Is Patient Female and 13-50 no [...] SINGH LPN - 08/16/2016 8:11 CDT Source: [employer] POWERCHART Document Id: [id number] CDT!43 documented in this encounter Plan of [...]
--- OUTSIDE RECORDS SUMMARY | 2022-04-28 14:50 | XMS_ITS | Encounter Summary ---
:1950 Author Organization [facility] Address [address] [place] [address] Care Team Providers Name Role Phone Nato Dougherty APRN, C.N.P. Primary Care Provider [phone] Encounter Details Date Type Department Care Team Description 12/21/2016 Hospital Encounter HX [facility] F[facility]V LAB Nato Dougherty, Shawn GODOY, C.N.P. [address] [place] [phone] (Wo rk) Social History Tobacco Use [...] How often do you attend protestant or catholic services? 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 [facility] Disp[facility] item 0 08/23/2014 9 covered [...] 1:45 PM CDT From: NATO DOUGHERTY APRN KNIFER UP To: ONESIMO WALTON Sent: 12/21/2016 13:45:48 CDT A1c is stable, recheck in 6 months. Results: Date Result Name Ind Value Ref Range 12/21/2016 09:20 Hgb A1c (H) 7.4 % A1C ( - <=5.6) Source: [facility] [employer] Document Id: [id number] documented in this encounter Plan of Treatment Not on filedocumented as of this encounter Visit Diagnoses Not on filedocumented in this encounter Additional Health Concerns Assessment Noted Time PHQ-9 Depression Total Score: 7 09/23/2016 11:23 AM CD T documented as of this encounter Care Teams Mig Tig Welder Relationship Specialty Start Date End Date Nato Dougherty APRN, C.N.P. PCP - General 10/28/16 04/05/17 [address], [place] [address] documented as of this encounter
--- OUTSIDE RECORDS SUMMARY | 2022-04-28 14:50 | XMS_ITS | Encounter Summary ---
:1950 Author Organization [facility] Address [address] [place] [address] Care Team Providers Name Role Phone Nato Dougherty APRN, C.N.P. Primary Care Provider [phone] Encounter Details Date Type Department Care Team Description 01/07/2017 Hospital Encounter HX FBCV FAMILYPRA Nato Dougherty APRN, C.N.P. [address] [place], [place] [phone] (Wo rk) Social History [...] How often do you attend adventism or temple services? 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 lancets [facility] [...] MITALI MÉNDEZ CMA To: NATO DOUGHERTY APRN [facility]; Sent: 01/07/2017 10:10:06 CDT Subject: *General Message Patient was in for B/P check today. Taking medications as recommended. B/P 155/69 Pulse 68 Five minutes later. B/P 147/72 Pulse 69 Source: [facility] POWERCHART Document Id: [id number] Miscellaneous - Mitali Méndez C.MFeiA. - 01/07/2017 [...] MÉNDEZ CMA - 01/07/2017 10:03 CDT Source: [employer] Document Id: [id number] CDT!9 Miscellaneous - Mitali Méndez C.MJyoti - 01/07/2017 10:03 AM CDT Ambulatory Vitals Height Weight Ambulatory Vitals Height Weight Entered On: 01/07/2017 10:08 CDT Performed On: 01/07/2017 10:03 CDT by MITALI MÉNDEZ [facility] Vitals/Ht/Wt Peripheral Pulse Rate : 69 /min Systolic Blood Pressure : 147 mmHg (HI) Diastolic Blood Pressure : 72 mmHg NIBP Mean : 97 mmHg BP Location : Left upper extremity Blood Pressure Cuff Size : Regular Height : 173 cm(Converted to: 5 ft 8 inch(es), 68 inch(es)) MITALI MÉNDEZ [facility] - 01/07/2017 10:03 CDT Source: [employer] Document Id: [id number] CDT!9 documented in this encounter Plan of Treatment Not on filedocumented as of this encounter Visit Diagnoses Not on filedocumented in this encounter Additional Health Concerns Assessment Noted Time PHQ-9 Depression Total Score: 6 12/22/2016 10:26 AM CD T documented as of this encounter Care Teams Digital Press Operator Relationship Specialty Start Date End Date Nato Dougherty, JULIÁN, C.N.P. PCP - General 10/28/16 04/05/[address], [place] [address] documented as of this encounter
--- OUTSIDE RECORDS SUMMARY | 2022-04-28 14:50 | XMS_ITS | Encounter Summary ---
:1950 Author Organization [facility] Address [address] [place] [address] Care Team Providers Name Role Phone Unavailable Primary Care Provider Unavailable Encounter Details Date Type Department Care Team Description 02/14/2012 Hospital Encounter HX [facility] PMTR Yosi Garces M.D. [address] [place] [address], [address] [place] [address] (Wo rk) Social History Tobacco [...] How often do you attend scientology or spiritism services? 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 - 02/14/2012 1:23 PM CDT [id number] CHIEF COMPLAINT / REASON FOR VISIT Referring [...] Morphine. SOCIAL HISTORY The patient lives in [place]. 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 Electronically Signed By: MARIE AMBROSIO On: 02/29/2012 09:01 AM Source: [facility] [employer]OWERPlayCafe Document Id: [id number] documented in this encounter Miscellaneous Notes Miscellaneous - Winter Singh L.P.N. - 06/17/2016 11:06 AM CST *Medication Refill Msg Document Contains Addenda Addendum by WINTER SINGH LPN on June 17, 2016 11:42:57 SERVICE ADVISOR Spoke with: ( x_ ) Patient ( [...] language for Healthcare discussion: _ Was an scrap burner used for this call? _ Other ( --_ ) Addendum by NATO ZACARIAS APRN, CNP on June 17, 2016 11:32:58 SERVICE ADVISOR From: NATO ZACARIAS APRN CALLISTHENICS INSTRUCTOR To: FINESSE Zacarias Nurse; Sent: 06/17/2016 11:32:58 SERVICE ADVISOR Subject: RE: *Medication Refill Msg done From: WINTER SINGH LPN ( Deann Nurse) To: NATO ZACARIAS APRN CALLISTHENICS INSTRUCTOR; Sent: 06/17/2016 11:06:52 SERVICE ADVISOR Subject: *Medication Refill Msg Caller is: ( [...] ( ) Mail Rx to Patient Source: [facility] POWERCHART Document Id: [id number] Electronically signed by Rajesh, [facility] Administrative Volunteer [id number] at 10/17/2016 1:32 AM CDT Miscellaneous - Ranulfo Garces M.D. - 02/14/2012 2:24 PM CDT Ambulatory [place] [address] Visit Information Name: ONESIMO WALTON Current Date: [...] No Appointments found Your Goals/Additional instructions: Source: [facility] POWERCHART Document Id: [id number] Miscellaneous - Ranulfo Garces M.D. - 02/14/2012 2:24 PM CDT [place] [address] Visit Information Name: ONESIMO WALTON Visit Date: [...] your provider for clarification. Additional Information: Source: [facility] POWERCHART Document Id: [id number] Miscellaneous - Huong Navas P.A.-C. - 02/14/2012 1:58 PM CDT Adult Complaint Manager Intake/History Adult Complaint Manager Intake/History Entered On: 02/14/2012 13:58 CDT Performed [...] NAVAS; Reviewed Date: 02/14/2012 13:57 CDT Source: [facility] POWERCHART Document Id: [id number] Miscellaneous - Huong Navas P.A.-C. - 02/14/2012 [...] HUONG NAVAS - 02/14/2012 13:58 CDT [facility] Document Id: [id number] documented in this encounter Plan of Treatment Not on filedocumented as of this encounter Visit Diagnoses Not on filedocumented in this encounter
--- OUTSIDE RECORDS SUMMARY | 2022-04-28 14:51 | XMS_ITS | Encounter Summary ---
:1950 Author Organization [facility] Address [address] [place] [address] Care Team Providers Name Role Phone Unavailable Primary Care Provider Unavailable Encounter Details Date Type Department Care Team Description 05/02/2008 Hospital Encounter HX [facility] FAMILYPRA Tee Dhillon M.D. [address] [place] [address] (Wo rk) Social History Tobacco [...] How often do you attend christian or yarsanism services? 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
[2022-04-28] MEDS: 0.9 % SODIUM CHLORIDE 500 ML 500 ML IV (14:52)
[2022-04-28 14:55] LABS: Chloride* 93 mmol/L (96-114); Potassium* 4.4 mmol/L (3.6-5.1); Sodium* 129 mmol/L (135-149)
[2022-04-28 14:56] LABS: INR 1.19 (0.91-1.10); Prothrombin Time 15.8 Seconds
[2022-04-28 14:57] LABS: Creatinine* 4.1 mg/dL (0.5-1.5); Est. Creatinine Clearance* 16.76; Estimated Glomerular Filt Rate 15 ml/min; Partial Thromboplastin Time* 42 Seconds (23-33)
[2022-04-28 14:58] LABS: Blood Urea Nitrogen* 88 mg/dL (7-30); Carbon Dioxide* 26 mmol/L (20-32); Glucose* 178 mg/dL (60-115)
[2022-04-28 14:59] LABS: Calcium* 7.1 mg/dL (8.4-10.6)
[2022-04-28 15:12] LABS: C Reactive Protein* 23.1 mg/dL (0.5-1.0)
[2022-04-28 15:15] LABS: Procalcitonin* 3.05 ng/mL (<0.50)
[2022-04-28] MEDS: OMEPRAZOLE 20 MG CAPSULE DR PO ×2 (16:57→19:11)
[2022-04-28] MEDS: predniSONE 10 MG TABLET 50 MG PO (16:57)
--- NOTE | 2022-04-28 17:05 | ED.NURSE ---
dr diane did talk him into staying in the hospital. waned to go home initially. is sitting on the edge of the bed. asking for something for pain.
[2022-04-28] MEDS: OXYCODONE 5 MG TABLET 10 MG PO (17:23)
--- NOTE | 2022-04-28 17:40 | ED.NURSE ---
report was called to luna liu.
--- NOTE | 2022-04-28 18:21 | PM.IMHP1 ---
Hospitalist- H&P: HPI History of Present Illness Date Seen: 04/28/22 Chief complaint: Swollen right leg Narrative: Onesimo Walton is a 72 year old male presents to the emergency room with right shoulder pain, right knee pain, right low back pain. He reports that starting at the end of February he had low back pain going into his right leg. He was eventually diagnosed with a lumbar radiculopathy he had an MRI I that showed a synovial cyst at the right L4 with degenerative changes in the lateral disc herniation causing some L3 he also was seen to have moderate to severe spinal stenosis. Received a steroid injection is back for this and reported he got relief. He tells me this happened about a week ago. Looking back I also see that he had a Medrol dose unclear whether that was beneficial for him. He has been on chronic oxycodone even prior to his back and she problems but has increased the use 10 mg 5 or 6 times a day. His pain is gotten bad enough to the point where he is now using crutches to walk. He thinks the crutches have injured his right shoulder. His right knee pain and right shoulder have been just in the last few days. He reports that he has otherwise not been ill. He has not had a fever. He has fatigue and malaise. Reports he has been eating normally he has got problems with constipation. He has no bowel or bladder incontinence. He does not have pain radiating down his arms or legs. He does have bilateral leg pain that is chronic from diabetic peripheral neuropathy. He reports he is numb below both knees. In the emergency room he was found to have a new anemia guaiac-positive stool in his rectum. Review of Systems Narrative: He reports no new symptoms are acute symptoms in the last couple months other than his back, right shoulder and right knee. No shortness of breath. No chest pain. No abdominal pain. No nausea vomiting. S a patient as above. He is unaware of rectal bleeding or melanotic stools. [facility] Medical History Abscess of skin Chronic pain Chronic pruritus Diabetic foot ulcer Diabetic gastroparesis (04/20/09) Diabetic neuropathy Erectile dysfunction (04/23/06) Gastroesophageal reflux disease Gout Hyperlipidemia Hypertension Lumbar radiculopathy Major depressive disorder with single episode (09/18/07) Peripheral arterial disease Restless legs syndrome Spinal stenosis of lumbar region Stage 3 chronic kidney disease Transient ischemic attack (2009) Type 2 diabetes mellitus Vitamin D deficiency Surgical History History of amputation of left great toe (05/31/17) History of angioplasty of peripheral vessel (05/27/17) History of carpal tunnel release History of repair of right rotator cuff (2004) History of tonsillectomy Status post cataract extraction and insertion of intraocular lens (2007) Status post epidural steroid injection (07/06/18) Status post insertion of iliac artery stent Family History Sister Breast cancer, Onset Age: 70 Diabetes Brother Diabetes Stroke, Onset Age: 69 Heart disease, Onset Age: 69 Social History Narrative: -[employer], retired, 4 kids No EtOH Highest level of school completed/degree received: some college, no degree Smoking Status: Current every day smoker What tobacco products do you use: cigarettes Smoking packs per day: 0.5 Smoking cigarettes per day: 10.0 Years smoked: 40 Smoking pack-years: 20.00 Do you use any of these nicotine containing products: None Second hand tobacco smoke exposure: No How often do you have a drink containing alcohol: monthly or less Alcohol type details: rare AUDIT-C Alcohol total score: 1 Non-prescribed substance use: denies use Caffeine: Yes (pot of coffee daily) Are you now , , , , never or living with a partner: Social isolation score (0-1 are the most socially isolated patients): 1 service: No Meds Home Medications and Allergies Home Medications Medication Instructions Recorded Confirmed Type aspirin 325 mg tablet 325 mg PO QDAY 11/18/21 04/28/22 History atorvastatin 20 mg tablet 20 mg PO HS 11/18/21 04/28/22 History nortriptyline 50 mg capsule 100 mg PO HS 11/18/21 04/28/22 History sodium bicarbonate 650 mg tablet 650 mg PO BID 11/18/21 04/28/22 History ferrous gluconate 225 mg (27 mg 225 mg PO QDAY 12/09/21 04/28/22 History iron) tablet (Fergon) carvedilol 25 mg tablet 25 mg PO DAILY 12/10/21 04/28/22 History amlodipine 5 mg tablet 10 mg PO DAILY 04/28/22 04/28/22 History calcium citrate 200 mg (950 mg) 800 mg PO HS 04/28/22 04/28/22 History tablet duloxetine 60 mg capsule,delayed 60 mg PO HS 04/28/22 04/28/22 History release ergocalciferol (vitamin D2) 1,250 1,250 mcg PO .WEEKLY 04/28/22 04/28/22 History mcg (50,000 unit) capsule furosemide 40 mg tablet 40 mg PO BID 04/28/22 04/28/22 History insulin aspart U-100 100 unit/mL 80 unit subcut USEASDIRECTD 04/28/22 04/28/22 History subcutaneous solution (Novolog U-100 Insulin aspart) pramipexole 1 mg tablet 1 mg PO HS 04/28/22 04/28/22 History Home Medication Comments: Patient does not know his medications. He tells me he manages them by feeling a weekly pill box with 3 times a day dosing. Allergies Allergy/AdvReac Type Severity Reaction Status Date / Time morphine Allergy Severe itching Verified 04/28/22 14:04 and swelling pregabalin Allergy Severe itching Verified 04/28/22 14:04 and swelling gabapentin Allergy Intermediate swelling Verified 04/28/22 14:04 [id number] Reductase Allergy Mild Unknown Verified 04/28/22 14:04 Inhibitor Exam Narrative: Exam Narrative: He is alert and appears in moderate amount of distress. He gives his own history. He is quite forgetful of recent details and does not know his medications. Head is without trauma. Eyes are normal. Pupils are equal round visual emmanuel are intact. Extraocular movements are full. No facial asymmetry. Oropharynx is normal. Neck is supple without mass or adenopathy. Palpation over his neck is nontender. Palpation over this is moderately tender. No evidence of trauma. Palpation over the rest of his back and axial spine is normal. Respirations are clear to auscultation. Cardiovascular: S1, S2, regular rate and rhythm. No murmur gallop or rub. Abdomen: Bowel sounds active. Abdomen is soft without tenderness or mass. He has intact pulses sensation in his upper extremities. He moves them well. Lower extremities examined. He says subjective anesthesia below the knees. Diminished pedal pulses. Third and 4th toes on the right foot are amputated. tip of the left great toe is also amputated. No opens skin lesions or rashes. Examination of his right is a knee effusion. Does not read or particularly warm to touch. He does have diminished range of motion in the knee and some discomfort with palpation and most sting. Const: Vital Signs, click to edit/add: Vital Signs - 24 hr 04/28/22 13:55 04/28/22 14:12 04/28/22 14:32 Temperature 97.7 F Pulse Rate [Left A pical] Pulse Rate [Right Dorsalis Pedis] Pulse Rate [Right Pulse Oximeter] 8 L 75 Respiratory Rate 18 16 Blood Pressure [Le ft Arm] Blood Pressure [Le ft Upper Arm] 75/44 L 153/89 H Pulse Oximetry 98 95 95 Oxygen Delivery Me thod Room Air Room Air 04/28/22 14:30 04/28/22 15:02 04/28/22 15:30 Temperature Pulse Rate [Left A pical] Pulse Rate [Right Dorsalis Pedis] Pulse Rate [Right Pulse Oximeter] 75 78 76 Respiratory Rate 16 16 18 Blood Pressure [Le ft Arm] Blood Pressure [Le ft Upper Arm] 123/56 L 150/58 H 132/59 L Pulse Oximetry 91 93 89 Oxygen Delivery Me thod Room Air Room Air Room Air 04/28/22 16:00 04/28/22 17:25 04/28/22 17:59 Temperature 97.2 F L 98.3 F Pulse Rate [Left A pical] 84 Pulse Rate [Right Dorsalis Pedis] 84 Pulse Rate [Right Pulse Oximeter] 80 81 Respiratory Rate 20 20 Blood Pressure [Le ft Arm] 128/67 Blood Pressure [Le ft Upper Arm] 152/67 H 120/94 H Pulse Oximetry 95 97 97 Oxygen Delivery Me thod Room Air Room Air Room Air Documenting provider has reviewed patient's vital signs: yes Hospitalist - H&P: Result Labs Labs: Short CBC 04/28/22 Range/Units 14:32 WBC 12.83 H (4.50-11.00) K/uL Hgb 7.8 L* (13.5-17.5) gm/dL Hct 23.8 L (37.0-53.0) % Plt Count 304 (140-440) K/uL [facility] 04/28/22 14:32 Sodium 129 L Potassium 4.4 Chloride 93 L Carbon Dioxide 26 BUN 88 H Creatinine 4.1 H Glucose 178 H Calcium 7.1 L Assessment and Plan Assessment and plan (1) GI bleed: Problem comment: He has a new anemia and guaiac-positive stools. Recommend serial hemoglobins monitoring of vital signs and upper endoscopy to evaluate for upper GI source of bleeding. Continue PPI. Hold aspirin until EGD. Resume aspirin if no high risk lesions are seen. Recommend outpatient colonoscopy. Will hold blood pressure medications a poorly pending evidence of active bleeding or abnormal vital signs Status: Acute (2) Lumbar radiculopathy: Problem comment: Patient has low back pain with right leg pain, this been fairly significant. He is on narcotic pain medication. At this point after decision making and discussion, it was elected to proceed with a L4-5 transforaminal right-sided epidural steroid injection. He recently completed oral steroids he will stop his aspirin at the appropriate time frame prior to the steroid shot. Not in shooting interested in surgical consultation this time however feet fails to improve through a series of a couple steroid injections he may be a good candidate for surgical referral. The 2nd steroid shot I would do transforaminal at L4-5 and L5-S1 level in a repeat shot . he has comfortable with the plan and will be followed as above. Status: Acute (3) Right shoulder pain: Problem comment: This appears to be pain and tenderness primarily in the trapezius muscle on the right. This may represent a simple strain. I am concerned about the possibility of his prominent pain problems representing polymyalgia rheumatica. Would like a trial of prednisone to see if he gets a response. Status: Acute (4) Anemia: Problem comment: Presumably due to GI bleeding. Needs further Status: Acute (5) Stage 3 chronic kidney disease: Problem comment: A little worse today. Monitor. Status: Acute (6) Diabetic neuropathy: Problem comment: Chronic Status: Acute (7) Type 2 diabetes mellitus: Problem comment: Will have patient use insulin pump and continuous glucose monitor. This has worked well for him Status: Acute (8) Hyponatremia: Problem comment: Provide normal saline tonight. Recheck in the morning. Cause is uncertain. Status: Acute (9) Right knee pain: Problem comment: Appears to have a joint effusion. Does not appear to have acute monoarticular arthritis. Probably OA. Consider orthopedic consult or corticosteroid injection. Status: Acute Plan Admit for monitoring of GI bleeding, anemia, upper endoscopy. Initiate prednisone for empiric trial for polymyalgia rheumatica. Consider orthopedic consultation regarding his right knee. Total time spent today is 90 minutes, 60 minutes in coordination of care and discussing with patient his family and other providers his concerns.
[2022-04-28] MEDS: 0.9 % SODIUM CHLORIDE 1000 ml 1,000 ML 100 ML IV (19:05)
[2022-04-28 19:22] LABS: Appearance Urine Clear (Clear); Bilirubin Urine Negative (Negative); Blood Urine Trace-intact (Negative); Color Urine Yellow (Yellow); Glucose Urine Negative (Negative); Ketones Urine Negative (Negative); Leukocyte Esterase Urine 1+ (Negative); Nitrite Urine Negative (Negative); Protein Urine 1+ (Negative); Specific Gravity Urine <= 1.005 (1.000-1.030); Urobilinogen Urine 0.2 (0.2-1.0); pH Urine 5.5 (5.0-8.5)
[2022-04-28 19:23] LABS: Lactate Sepsis 2 Hour 1.4 mmol/L (0.5-1.9)
[2022-04-28 19:27] LABS: Hemoglobin* 8.8 gm/dL (13.5-17.5)
[2022-04-28 19:49] LABS: RBC Urine 0-2 (0-2); Squamous Epithelial Cell Urine Few (None-Few); WBC Urine 0-2 (0-5)
[2022-04-28 20:21] LABS: Erythrocyte SedimentationRate* 102 mm/hr (2-15)
[2022-04-28] MEDS: DULOXETINE 30 MG CAPSULE DR 60 MG PO (21:06)
[2022-04-28] MEDS: ATORVASTATIN 10 MG TABLET 20 MG PO (21:07)
[2022-04-28] MEDS: ACETAMINOPHEN 325 MG TABLET 975 MG PO (21:07)
[2022-04-28] MEDS: OXYCODONE 5 MG TABLET PO (21:07)
[2022-04-28] MEDS: MELATONIN 3 MG TABLET PO (21:08)
[2022-04-28] MEDS: SENNOSIDES/DOCUSATE TABLET 2 TAB PO (21:08)
[2022-04-28] MEDS: NORTRIPTYLINE HCL 25 MG CAPSULE 100 MG PO (21:58)
[2022-04-28] MEDS: SODIUM BICARBONATE 650 MG TABLET PO (21:58)
--- NOTE | 2022-04-28 22:57 | PC.NURSE ---
Shift Note: Pt a/o and demonstrates competency with management of his insulin pump. VS WNL, LS diminished bibasilarly with expiratory wheeze in left upper lobe. Pt denies SOB or CP. needs assist x1 to use urinal at bedside.
[2022-04-29 03:00] VITALS: BP 112/69; PULSE 67; RESP 16; TEMP 36.6; O2SAT 100
[2022-04-29] MEDS: 0.9 % SODIUM CHLORIDE 1000 ml 1,000 ML 100 ML IV (03:52)
--- NOTE | 2022-04-29 05:30 | PC.NURSE ---
VSS on RA. Patient is alert and oriented 4, uses call light appropriately. Patient denies pain this shift. Assist of 1 with transfers, continent of bowel and bladder, uses urinal at bedside, IV fluid infusing.
[2022-04-29] MEDS: OMEPRAZOLE 20 MG CAPSULE DR PO ×2 (06:32→20:46)
[2022-04-29] MEDS: NORTRIPTYLINE HCL 25 MG CAPSULE 100 MG PO (06:32)
[2022-04-29 06:55] LABS: Hemoglobin* 8.4 gm/dL (13.5-17.5); Immature Granulocytes Abs Auto 0.07 K/uL (0.00-0.30); Immature Granulocytes Pct Auto 0.7 %; Lymphocytes Percent Auto 5.8 % (20-44); Mean Corpuscular HGB Conc 32 gm/dL (32-36); Mean Corpuscular Hemoglobin 30 pg (26-34); Mean Corpuscular Volume 92 fL (80-100); Monocytes Percent Auto 2.8 % (0.0-11.0); Neutrophils Percent Auto 90.7 % (42.0-72.0); Platelet Count* 332 K/uL (140-440); Red Blood Count 2.84 m/uL (4.30-5.90); White Blood Count* 10.28 K/uL (4.50-11.00)
[2022-04-29 06:56] LABS: Slide Review Reflex No
[2022-04-29 07:00] VITALS: BP 168/61; PULSE 87; RESP 18; TEMP 36.6; O2SAT 94
[2022-04-29 07:05] LABS: Chloride* 98 mmol/L (96-114); Potassium* 4.4 mmol/L (3.6-5.1); Sodium* 134 mmol/L (135-149)
[2022-04-29 07:08] LABS: Blood Urea Nitrogen* 82 mg/dL (7-30); Carbon Dioxide* 25 mmol/L (20-32); Creatinine* 3.9 mg/dL (0.5-1.5); Est. Creatinine Clearance* 17.62; Estimated Glomerular Filt Rate 16 ml/min
[2022-04-29 07:09] LABS: Calcium* 7.4 mg/dL (8.4-10.6); Glucose* 178 mg/dL (60-115)
--- NOTE | 2022-04-29 07:34 | CRLHL7_ITS ---
For Patients: As a result of the Cures Act, medical imaging exams and procedure reports are released immediately into your electronic medical record. You may view this report before your referring provider. If you have questions, please contact your health care provider. Indication: pain and swelling Technique: Right knee 3 views Comparison: None Findings: Mild patellofemoral spurring. Moderate joint effusion in the suprapatellar recess. Mild prepatellar soft tissue swelling. Mild medial compartment narrowing. There is no fracture. Osteoporotic changes are present. Impression: Mild degenerative joint disease, joint effusion and prepatellar bursitis. Dictated by Rudy Birmingham MD @ 04/29/2022 9:51:45 AM (Electronically Signed)
[2022-04-29] MEDS: OXYCODONE 5 MG TABLET PO ×4 (09:13→20:27)
--- NOTE | 2022-04-29 10:14 | PM.EN ---
Chart Event Note Time Seen by Provider: 10:15 Date Seen: 04/29/22 Chart Event Note: Procedure note: Patient has right knee pain with exam suggestive of osteoarthritis. Radiographs showed mild changes of osteoarthritis. He has a mild knee effusion. After discussion of risks and benefits patient requests a corticosteroid injection into the knee. He has had this done previously with good results. After discussion of risks and benefits we proceed to right knee intra-articular injection. Knee is prepped with Betadine. Using sterile technique and a superior medial patellar approach I inject 40 mg of Kenalog and 9 mL of 0.25% Marcaine into the knee. This is done without difficulty or complication. He does get immediate relief.
[2022-04-29] MEDS: BUPIVACAINE 0.25% 30 ML INJECTION (10:18)
--- NOTE | 2022-04-29 10:18 | P.IMPN_ITS ---
Progress Note: A&P Assessment and plan (1) GI bleed: Problem details: He has a new anemia and guaiac-positive stools. Recommend serial hemoglobins monitoring of vital signs and upper endoscopy to evaluate for upper GI source of bleeding. Continue PPI. Hold aspirin until EGD. Resume aspirin if no high risk lesions are seen. Recommend outpatient colonoscopy. Will hold blood pressure medications a poorly pending evidence of active bleeding or abnormal vital signs Status: Acute (2) Lumbar radiculopathy: Problem details: Patient has low back pain with right leg pain, this been fairly significant. He is on narcotic pain medication. At this point after decision making and discussion, it was elected to proceed with a L4-5 transforaminal right-sided epidural steroid injection. He recently completed oral steroids he will stop his aspirin at the appropriate time frame prior to the steroid shot. Not in shooting interested in surgical consultation this time however feet fails to improve through a series of a couple steroid injections he may be a good candidate for surgical referral. The 2nd steroid shot I would do transforaminal at L4-5 and L5-S1 level in a repeat shot . he has comfortable with the plan and will be followed as above. Status: Acute (3) Right shoulder pain: Problem details: This appears to be pain and tenderness primarily in the trapezius muscle on the right. This may represent a simple strain. I am concerned about the possibility of his prominent pain problems representing polymyalgia rheumatica. Modestly better today question positive response to prednisone Status: Acute (4) Anemia: Problem details: Presumably due to GI bleeding. Needs further evaluation with colonoscopy and response to prednisone treatment for possible polymyalgia rheumatica. Status: Acute (5) Stage 3 chronic kidney disease: Problem details: Modestly better today. Status: Acute (6) Diabetic neuropathy: Problem details: Chronic Status: Acute (7) Type 2 diabetes mellitus: Problem details: Will have patient use insulin pump and continuous glucose monitor. This is working for him. Status: Acute (8) Hyponatremia: Problem details: Improved with maintenance normal saline Status: Acute (9) Right knee pain: Problem details: Probably due to osteoarthritis. Good response to cortisone injection. Status: Acute (10) Cognitive impairment: Problem details: [place] today . Status: Acute Plan Await evaluation by therapy, upper endoscopy, reassessment this afternoon. Possible discharge to home today if no high-risk bleeding lesions and patient is clinically improved. Time Spent With Patient Total time spent: Total time spent today is 40 minutes, 30 minutes in coordination of care and discussing with patient and other providers management of GI bleeding, arthritis, polymyalgia rheumatica. Subjective Date Seen: 04/29/22 Interval history: 72-year-old male seen in hospital admission for musculoskeletal pain problems and GI bleed. Patient was admitted through the emergency department with intractable and variable musculoskeletal pain problems. Starting around 2 months ago he had right low back pain that was diagnosed as sciatica. He has had an epidural corticosteroid injection with some relief of that. He has subsequently developed shoulder pain right greater than left and right knee pain. Has had previous right knee problems and received a cortisone injection in his knee with good results in the past. He has had elevated inflammatory markers and there was clinical suspicion for polymyalgia rheumatica. He was started on steroids last night. He reports being modestly better today already. He gives history of chronic mild headache. He also has chronic visual disturbance but no recent change in vision. No jaw claudication. He has not had any fever other symptoms of illness. He is pending upper endoscopy to evaluate his anemia and guaiac-positive stool. Right knee cortisone injection was performed by me this morning. See separate note for details. This was uncomplicated and he got good relief immediately. Exam Narrative: Exam Narrative: He is alert and in no distress. Respirations are clear to auscultation. Cardiovascular: S1, S2, regular rate and rhythm. Abdomen is soft without tenderness or mass. Neck is examined. He has mild tenderness on the right side of his neck and shoulder over the trapezius. No other tenderness in palpation over his back. Range of motion the right shoulder is normal without significant discomfort. Range of motion the neck is mildly uncomfortable again in the right trapezius area. Right lower extremity has mild edema compared to the left. Patient reports this is chronic. Ultrasound yesterday was negative for DVT. He has mild swelling in the right knee compared to the left as well. Knee is not warm, red or tender to touch. Limited range of motion in the right knee from about 10? of flexion to about 90? of flexion limited by knee pain. Intact pulses distally. Feet are numb. Const: Vital Signs, click to edit/add: Vital Signs - 24 hr 04/28/22 13:55 04/28/22 14:12 04/28/22 14:32 Temperature 97.7 F Pulse Rate [Left A pical] Pulse Rate [Right Dorsalis Pedis] Pulse Rate [Right Pulse Oximeter] 8 L 75 Respiratory Rate 18 16 Blood Pressure [Le ft Arm] Blood Pressure [Le ft Upper Arm] 75/44 L 153/89 H Pulse Oximetry 98 95 95 Oxygen Delivery Me thod Room Air Room Air 04/28/22 14:30 04/28/22 15:02 04/28/22 15:30 Temperature Pulse Rate [Left A pical] Pulse Rate [Right Dorsalis Pedis] Pulse Rate [Right Pulse Oximeter] 75 78 76 Respiratory Rate 16 16 18 Blood Pressure [Le ft Arm] Blood Pressure [Le ft Upper Arm] 123/56 L 150/58 H 132/59 L Pulse Oximetry 91 93 89 Oxygen Delivery Me thod Room Air Room Air Room Air 04/28/22 16:00 04/28/22 17:25 04/28/22 17:59 Temperature 97.2 F L 98.3 F Pulse Rate [Left A pical] 84 Pulse Rate [Right Dorsalis Pedis] 84 Pulse Rate [Right Pulse Oximeter] 80 81 Respiratory Rate 20 20 Blood Pressure [Le ft Arm] 128/67 Blood Pressure [Le ft Upper Arm] 152/67 H 120/94 H Pulse Oximetry 95 97 97 Oxygen Delivery De thod Room Air Room Air Room Air 04/28/22 19:00 04/28/22 17:59 04/28/22 23:00 Temperature 98.3 F Pulse Rate [Left A pical] 84 Pulse Rate [Right Dorsalis Pedis] 84 Pulse Rate [Right Pulse Oximeter] Respiratory Rate 20 20 Blood Pressure [Le ft Arm] 128/67 Blood Pressure [Le ft Upper Arm] Pulse Oximetry 97 97 92 Oxygen Delivery Me thod Room Air Room Air Room Air 04/28/22 23:00 04/28/22 23:00 04/29/22 03:00 Temperature 98.6 F 97.9 F Pulse Rate [Left A pical] 83 83 67 Pulse Rate [Right Dorsalis Pedis] 84 Pulse Rate [Right Pulse Oximeter] Respiratory Rate 16 16 16 Blood Pressure [Le ft Arm] 100/62 112/69 Blood Pressure [Le ft Upper Arm] Pulse Oximetry 92 100 Oxygen Delivery Me thod Room Air 04/29/22 07:00 04/29/22 07:00 Temperature 97.8 F Pulse Rate [Left A pical] 87 Pulse Rate [Right Dorsalis Pedis] Pulse Rate [Right Pulse Oximeter] Respiratory Rate 18 18 Blood Pressure [Le ft Arm] 168/61 H Blood Pressure [Le ft Upper Arm] Pulse Oximetry 94 94 Oxygen Delivery Me thod Room Air Room Air Documenting provider has reviewed patient's vital signs: yes Labs Labs: Laboratory Results - last 24 hr 04/28/22 04/28/22 04/28/22 14:32 14:32 14:32 WBC 12.83 H RBC 2.62 L Hgb 7.8 L* Hct 23.8 L MCV 91 MCH 30 MCHC 33 RDW Coeff of Amirah 14.9 Plt Count 304 Neut % (Auto) 80.1 H Lymph % (Auto) 7.2 L [place] % (Auto) 9.9 Eos % (Auto) 1.8 Baso % (Auto) 0.1 Neut # (Auto) 10.30 H Lymph # (Auto) 0.90 [place] # (Auto) 1.30 H Eos # (Auto) 0.20 Baso # (Auto) 0.00 Abs Immat Gran (auto) 0.10 Imm/Tot Granulo (auto) 0.9 ESR INR 1.19 H APTT 42 H D-Dimer Quant (PE/DVT) 3.80 H Sodium 129 L Potassium 4.4 Chloride 93 L Carbon Dioxide 26 BUN 88 H Creatinine 4.1 H Estimated Creat Clear 16.76 Estimated GFR 15 Glucose 178 H Venous Lactic Acid (Serial Order) Calcium 7.1 L C-Reactive Protein 23.1 H Procalcitonin 3.05 H Urine Color Urine Appearance Urine pH Ur Specific [place] Urine Protein Urine Glucose (UA) Urine Ketones Urine Blood Urine Nitrite Urine Bilirubin Urine Urobilinogen Ur Leukocyte Esterase Urine RBC Urine WBC Ur Squamous Epith Cells Urine Bacteria 04/28/22 04/28/22 04/28/22 14:32 17:48 19:03 WBC RBC Hgb 8.8 L Hct MCV MCH MCHC RDW Coeff of Amirah Plt Count Neut % (Auto) Lymph % (Auto) [place] % (Auto) Eos % (Auto) Baso % (Auto) Neut # (Auto) Lymph # (Auto) [place] # (Auto) Eos # (Auto) Baso # (Auto) Abs Immat Gran (auto) Imm/Tot Granulo (auto) ESR INR APTT D-Dimer Quant (PE/DVT) Sodium Potassium Chloride Carbon Dioxide BUN Creatinine Estimated Creat Clear Estimated GFR Glucose Venous Lactic Acid (Serial Order) Calcium C-Reactive Protein Procalcitonin Urine Color Yellow Urine Appearance Clear Urine pH 5.5 Ur Specific [place] <= 1.005 Urine Protein 1+ A Urine Glucose (UA) Negative Urine Ketones Negative Urine Blood Trace-intact A Urine Nitrite Negative Urine Bilirubin Negative Urine Urobilinogen 0.2 Ur Leukocyte Esterase 1+ A Urine RBC 0-2 Urine WBC 0-2 Ur Squamous Epith Cells Few Urine Bacteria None 04/28/22 04/29/22 04/29/22 19:03 06:40 06:40 WBC 10.28 RBC 2.84 L Hgb 8.4 L Hct 26.0 L MCV 92 MCH 30 MCHC 32 RDW Coeff of Amirah 15.0 Plt Count 332 Neut % (Auto) 90.7 H Lymph % (Auto) 5.8 L [place] % (Auto) 2.8 Eos % (Auto) 0.0 Baso % (Auto) 0.0 Neut # (Auto) 9.30 H Lymph # (Auto) 0.60 L [place] # (Auto) 0.30 Eos # (Auto) 0.00 Baso # (Auto) 0.00 Abs Immat Gran (auto) 0.07 Imm/Tot Granulo (auto) 0.7 ESR 102 H INR APTT D-Dimer Quant (PE/DVT) Sodium 134 L Potassium 4.4 Chloride 98 Carbon Dioxide 25 BUN 82 H Creatinine 3.9 H Estimated Creat Clear 17.62 Estimated GFR 16 Glucose 178 H Venous Lactic Acid (Serial Order) Calcium 7.4 L C-Reactive Protein 26.0 H Procalcitonin Urine Color Urine Appearance Urine pH Ur Specific [place] Urine Protein Urine Glucose (UA) Urine Ketones Urine Blood Urine Nitrite Urine Bilirubin Urine Urobilinogen Ur Leukocyte Esterase Urine RBC Urine WBC Ur Squamous Epith Cells Urine Bacteria
[2022-04-29] MEDS: TRIAMCINOLONE 40 MG/ML INJ INTRA-ARTI (10:19)
[2022-04-29] MEDS: SODIUM BICARBONATE 650 MG TABLET PO ×2 (10:27→20:28)
[2022-04-29] MEDS: carvediloL 25 MG TABLET 37.5 MG PO (10:28)
[2022-04-29] MEDS: predniSONE 20 MG TABLET 40 MG PO (10:28)
[2022-04-29 10:45] VITALS: BP 154/56; PULSE 90; RESP 18; TEMP 36.4; O2SAT 96
--- NOTE | 2022-04-29 13:36 | W.ANESCHARGE ---
Anesthesia Charges Start Date/Time Anesthesia Start Date: 04/29/22 Anesthesia Start Time: 12:50 Stop Date/Time Anesthesia Stop Date: 04/29/22 Anesthesia Stop Time: 13:05 Summary Emergency: No
--- NOTE | 2022-04-29 14:04 | W.ANESCHARGE ---
Anesthesia Charges Start Date/Time Anesthesia Start Date: 04/29/22 Anesthesia Start Time: 12:50 Stop Date/Time Anesthesia Stop Date: 04/29/22 Anesthesia Stop Time: 13:05 Summary Emergency: No Extremes of Age: Over 72-CPT [id number]
--- NOTE | 2022-04-29 14:19 | PM.DS1 ---
DS: Providers Provider Date Seen: 04/29/22 Date of admission: 04/28/22 17:53 Primary care physician: Rudy Riddle MD Admitting Clinician: Yon Antonio MD Attending Physician on discharge: Yon Antonio MD Date of Discharge: 04/29/22 DS: Diagnosis Discharge Diagnosis (1) GI bleed: Status: Acute Problem details: He has a new anemia and guaiac-positive stools. Recommend serial hemoglobins monitoring of vital signs and upper endoscopy to evaluate for upper GI source of bleeding. Continue PPI. EGD shows gastritis. Continue omeprazole. Recommend outpatient colonoscopy. PMR can also cause anemia but probably not guaiac-positive stools. (2) Lumbar radiculopathy: Status: Acute Problem details: Patient has low back pain with right leg pain, this been fairly significant. He is on narcotic pain medication. At this point after decision making and discussion, it was elected to proceed with a L4-5 transforaminal right-sided epidural steroid injection. He recently completed oral steroids he will stop his aspirin at the appropriate time frame prior to the steroid shot. Not in shooting interested in surgical consultation this time however feet fails to improve through a series of a couple steroid injections he may be a good candidate for surgical referral. The 2nd steroid shot I would do transforaminal at L4-5 and L5-S1 level in a repeat shot . he has comfortable with the plan and will be followed as above. (3) Right shoulder pain: Status: Acute Problem details: This appears to be pain and tenderness primarily in the trapezius muscle on the right. This may represent a simple strain. I am concerned about the possibility of his prominent pain problems representing polymyalgia rheumatica with his marked elevation of inflammatory markers. Modestly better today question positive response to prednisone (4) Anemia: Status: Acute Problem details: Presumably due to GI bleeding. Needs further evaluation with colonoscopy and response to prednisone treatment for possible polymyalgia rheumatica. (5) Stage 3 chronic kidney disease: Status: Acute Problem details: Modestly better today. (6) Diabetic neuropathy: Status: Acute Problem details: Chronic (7) Type 2 diabetes mellitus: Status: Acute Problem details: Will have patient use insulin pump and continuous glucose monitor. This is working for him. (8) Hyponatremia: Status: Acute Problem details: Improved with maintenance normal saline. Outpatient followup (9) Right knee pain: Status: Acute Problem details: Probably due to osteoarthritis. Good response to cortisone injection. (10) Cognitive impairment: Status: Acute Problem details: [place] today . (11) Unsteady gait: Status: Acute Problem details: PT recommends rear wheel walker (12) Polymyalgia rheumatica: Status: Acute Problem details: This is a tentative diagnosis based on patient's symptoms and inflammatory markers. Recommend outpatient followup to reassess. No symptoms or signs specific to giant cell arteritis. DS: Summary Hospital Course Hospital Course: Patient was admitted with relatively severe musculoskeletal pain. This was somewhat nonspecific. A number of diagnoses were entertained as the cause of this including right L5 radiculopathy, right knee osteoarthritis and polymyalgia rheumatica. He seems to have responded to specific treatment for all 3 of those in the last week including prednisone during this hospital stay and corticosteroid injection into his knee on this hospital stay and an epidural steroid injection last week. On admission he was found to have a new anemia with a hemoglobin of 7.8 and guaiac-positive stools. He underwent upper endoscopy which showed gastritis without any significant high risk lesions. He is recommended to undergo colonoscopy as an outpatient Status at Discharge Functional status at discharge: uses cane/walker Overall status at discharge: patient is progressing back to baseline Time Spent with Patient Time attestation: Total time spent providing and/or coordinating discharge services: Exam Const: Vital Signs, click to edit/add: Vital Signs - 24 hr 04/28/22 14:32 04/28/22 14:30 04/28/22 15:02 Temperature Pulse Rate [Left A pical] Pulse Rate [Right Dorsalis Pedis] Pulse Rate [Right Pulse Oximeter] 75 78 Respiratory Rate 16 16 Blood Pressure [Le ft Arm] Blood Pressure [Le ft Upper Arm] 123/56 L 150/58 H Blood Pressure [Ri ght Arm] Pulse Oximetry 95 91 93 Oxygen Delivery Me thod Room Air Room Air 04/28/22 15:30 04/28/22 16:00 04/28/22 17:25 Temperature 97.2 F L Pulse Rate [Left A pical] Pulse Rate [Right Dorsalis Pedis] Pulse Rate [Right Pulse Oximeter] 76 80 81 Respiratory Rate 18 20 Blood Pressure [Le ft Arm] Blood Pressure [Le ft Upper Arm] 132/59 L 152/67 H 120/94 H Blood Pressure [Ri ght Arm] Pulse Oximetry 89 95 97 Oxygen Delivery Me thod Room Air Room Air Room Air 04/28/22 17:59 04/28/22 19:00 04/28/22 17:59 Temperature 98.3 F 98.3 F Pulse Rate [Left A pical] 84 84 Pulse Rate [Right Dorsalis Pedis] 84 84 Pulse Rate [Right Pulse Oximeter] Respiratory Rate 20 20 20 Blood Pressure [Le ft Arm] 128/67 128/67 Blood Pressure [Le ft Upper Arm] Blood Pressure [Ri ght Arm] Pulse Oximetry 97 97 97 Oxygen Delivery Wa thod Room Air Room Air Room Air 04/28/22 23:00 04/28/22 23:00 04/28/22 23:00 Temperature 98.6 F Pulse Rate [Left A pical] 83 83 Pulse Rate [Right Dorsalis Pedis] 84 Pulse Rate [Right Pulse Oximeter] Respiratory Rate 16 16 Blood Pressure [Le ft Arm] 100/62 Blood Pressure [Le ft Upper Arm] Blood Pressure [Ri ght Arm] Pulse Oximetry 92 92 Oxygen Delivery Wa thod Room Air 04/29/22 03:00 04/29/22 07:00 04/29/22 07:00 Temperature 97.9 F 97.8 F Pulse Rate [Left A pical] 67 87 Pulse Rate [Right Dorsalis Pedis] Pulse Rate [Right Pulse Oximeter] Respiratory Rate 16 18 18 Blood Pressure [Le ft Arm] 112/69 168/61 H Blood Pressure [Le ft Upper Arm] Blood Pressure [Ri ght Arm] Pulse Oximetry 100 94 94 Oxygen Delivery Wa thod Room Air Room Air Room Air 04/29/22 10:45 Temperature 97.6 F Pulse Rate [Left A pical] 90 Pulse Rate [Right Dorsalis Pedis] Pulse Rate [Right Pulse Oximeter] Respiratory Rate 18 Blood Pressure [Le ft Arm] Blood Pressure [Le ft Upper Arm] Blood Pressure [Ri ght Arm] 154/56 H Pulse Oximetry 96 Oxygen Delivery Wa thod Room Air DS: Data Data Completed and Pending Labs on day of discharge: Labs from last 24 hours 04/29/22 04/29/22 04/28/22 06:40 06:40 19:03 WBC 10.28 RBC 2.84 L Hgb 8.4 L Hct 26.0 L MCV 92 MCH 30 MCHC 32 RDW Coeff of Amirah 15.0 Plt Count 332 Neut % (Auto) 90.7 H Lymph % (Auto) 5.8 L [place] % (Auto) 2.8 Eos % (Auto) 0.0 Baso % (Auto) 0.0 Neut # (Auto) 9.30 H Lymph # (Auto) 0.60 L [place] # (Auto) 0.30 Eos # (Auto) 0.00 Baso # (Auto) 0.00 Abs Immat Gran (auto) 0.07 Imm/Tot Granulo (auto) 0.7 ESR 102 H INR APTT D-Dimer Quant (PE/DVT) Sodium 134 L Potassium 4.4 Chloride 98 Carbon Dioxide 25 BUN 82 H Creatinine 3.9 H Estimated Creat Clear 17.62 Estimated GFR 16 Glucose 178 H Venous Lactic Acid (Serial Order) Calcium 7.4 L C-Reactive Protein 26.0 H Procalcitonin Urine Color Urine Appearance Urine pH Ur Specific [place] Urine Protein Urine Glucose (UA) Urine Ketones Urine Blood Urine Nitrite Urine Bilirubin Urine Urobilinogen Ur Leukocyte Esterase Urine RBC Urine WBC Ur Squamous Epith Cells Urine Bacteria 04/28/22 04/28/22 04/28/22 19:03 17:48 14:32 WBC RBC Hgb 8.8 L Hct MCV MCH MCHC RDW Coeff of Amirah Plt Count Neut % (Auto) Lymph % (Auto) [place] % (Auto) Eos % (Auto) Baso % (Auto) Neut # (Auto) Lymph # (Auto) [place] # (Auto) Eos # (Auto) Baso # (Auto) Abs Immat Gran (auto) Imm/Tot Granulo (auto) ESR INR APTT D-Dimer Quant (PE/DVT) Sodium Potassium Chloride Carbon Dioxide BUN Creatinine Estimated Creat Clear Estimated GFR Glucose Venous Lactic Acid (Serial Order) Calcium C-Reactive Protein Procalcitonin Urine Color Yellow Urine Appearance Clear Urine pH 5.5 Ur Specific [place] <= 1.005 Urine Protein 1+ A Urine Glucose (UA) Negative Urine Ketones Negative Urine Blood Trace-intact A Urine Nitrite Negative Urine Bilirubin Negative Urine Urobilinogen 0.2 Ur Leukocyte Esterase 1+ A Urine RBC 0-2 Urine WBC 0-2 Ur Squamous Epith Cells Few Urine Bacteria None 04/28/22 04/28/22 04/28/22 14:32 14:32 14:32 WBC 12.83 H RBC 2.62 L Hgb 7.8 L* Hct 23.8 L MCV 91 MCH 30 MCHC 33 RDW Coeff of Amirah 14.9 Plt Count 304 Neut % (Auto) 80.1 H Lymph % (Auto) 7.2 L [place] % (Auto) 9.9 Eos % (Auto) 1.8 Baso % (Auto) 0.1 Neut # (Auto) 10.30 H Lymph # (Auto) 0.90 [place] # (Auto) 1.30 H Eos # (Auto) 0.20 Baso # (Auto) 0.00 Abs Immat Gran (auto) 0.10 Imm/Tot Granulo (auto) 0.9 ESR INR 1.19 H APTT 42 H D-Dimer Quant (PE/DVT) 3.80 H Sodium 129 L Potassium 4.4 Chloride 93 L Carbon Dioxide 26 BUN 88 H Creatinine 4.1 H Estimated Creat Clear 16.76 Estimated GFR 15 Glucose 178 H Venous Lactic Acid (Serial Order) Calcium 7.1 L C-Reactive Protein 23.1 H Procalcitonin 3.05 H Urine Color Urine Appearance Urine pH Ur Specific [place] Urine Protein Urine Glucose (UA) Urine Ketones Urine Blood Urine Nitrite Urine Bilirubin Urine Urobilinogen Ur Leukocyte Esterase Urine RBC Urine WBC Ur Squamous Epith Cells Urine Bacteria Discharge Plan Discharge Disposition: Home, Self-Care Date of Admission: 04/28/22 17:53 Primary Care Provider: Rudy Riddle Condition: Stable Anticipated Discharge Date/Time: 04/29/22 14:26 Discharge Medications: No Action doxepin 25 mg capsule 25 mg PO BID Qty: 60 5RF Fergon 225 mg (27 mg iron) tablet 225 mg PO DAILY amlodipine 5 mg tablet 10 mg PO DAILY Label Comments: TAKE ONE TABLET BY MOUTH EVERY DAY calcium citrate 200 mg (950 mg) tablet 800 mg PO HS Label Comments: TAKE FOUR TABLETS BY MOUTH AT BEDTIME ergocalciferol (vitamin D2) 1,250 mcg (50,000 unit) capsule 1,250 mcg PO .WEEKLY Label Comments: TAKE 1 CAPSULE BY MOUTH ONCE WEEKLY ON TUESDAY furosemide 40 mg tablet 40 mg PO BID pramipexole 1 mg tablet 1 mg PO HS Label Comments: TAKE ONE TABLET BY MOUTH AT BEDTIME insulin aspart U-100 [Novolog U-100 Insulin aspart] 100 unit/mL solution 80 unit subcut USEASDIRECTD Rx Instructions: about 35 units daily per insulin pump per pt report 04/28/22 duloxetine 60 mg capsule,delayed release(DR/EC) 60 mg PO HS lisinopril 40 mg tablet 40 mg PO DAILY atorvastatin 20 mg tablet 20 mg PO HS nortriptyline 50 mg capsule 100 mg PO HS sodium bicarbonate 650 mg tablet 650 mg PO BID aspirin 325 mg tablet 325 mg PO DAILY (DME) Dexcom G6 Sensor Device See Rx Instructions .Route Qty: 3 2RF Rx Instructions: Change every 10 days carvedilol 25 mg tablet 25 mg PO DAILY Label Comments: pt states taking one pill once a day Rx Instructions: must administer with a meal/food (DME) Dexcom G6 Transmitter Device See Rx Instructions .Route Qty: 1 5RF Rx Instructions: As directed minocycline 100 mg capsule 100 mg PO QDAY Qty: 90 1RF oxycodone 5 mg tablet 5 - 10 mg PO Q6H PRN (Reason: pain) Qty: 100 0RF omeprazole 40 mg capsule,delayed release(DR/EC) 40 mg PO QDAY Qty: 90 3RF Follow Up Appointments: Rudy Riddle MD [Primary Care Provider] - Forms: [facility] Info Instructions
--- NOTE | 2022-04-29 14:37 | CRLHL7_ITS ---
For Patients: As a result of the Cures Act, medical imaging exams and procedure reports are released immediately into your electronic medical record. You may view this report before your referring provider. If you have questions, please contact your health care provider. INDICATION: Bacteremia of unknown source. Comparison : None. TECHNIQUE: CT chest, abdomen and pelvis with intravenous contrast; coronal and sagittal reformats. FINDINGS: No abnormal mediastinal or hilar lymphadenopathy. Normal size cardiac silhouette without any pericardial effusion. No abnormal intra pulmonary nodular densities are identified. No evidence of pleural effusion or chest wall pathology. No endobronchial pathology. No focal hepatic or splenic pathology. Atrophy of the pancreas. Distended gallbladder without any pericholecystic inflammatory changes or biliary duct dilatation. No adrenal pathology. Calcifications identified in the renal parenchyma in the lower pole right kidney. No kidney stones or obstructive uropathy. No retroperitoneal lymphadenopathy. No evidence of abdominal or pelvic ascites. Distended urinary bladder. Redundant sigmoid colon with large amount of retained stool throughout the colon. Stents in the left iliac artery. Post procedure/post operative changes left inguinal area. IMPRESSION: 1. Copious amounts of retained stool throughout the colon. 2. Distended gallbladder without any pericholecystic inflammatory changes. 3. Distended urinary bladder; the etiology unclear. 4. Negative CT chest, abdomen and pelvis with intravenous contrast otherwise. Please note that all CT scans at this facility use dose modulation, iterative reconstruction, and/or weight-based dosing when appropriate to reduce radiation dose to as low as reasonably achievable. Dictated by Alison Gonsalves MD @ 04/30/2022 8:29:54 AM (Electronically Signed)
--- NOTE | 2022-04-29 15:23 | PC.NURSE ---
Addendum entered by Mallory Castaneda 04/29/22 15:56: Dr. Antonio gave knee injection not cortisol. Original Note: Alert and oriented x4, pleasant and cooperative. Right leg, neck, and right lower back Pt reports 10/10 pain. Pain is being managed with PRN oxycodone Q4h. Dr. Antonio gave cortisol shot in right knee around 1130. Up SBA with walker and gait belt. Pt had EGD at 1300, had some food residue and redness, biopsy is still pending. Pt was found to have positive blood cultures. notified.
--- NOTE | 2022-04-29 16:03 | CRLHL7_ITS ---
For Patients: As a result of the Cures Act, medical imaging exams and procedure reports are released immediately into your electronic medical record. You may view this report before your referring provider. If you have questions, please contact your health care provider. Indication: Bacteremia Technique: Reformatted CT lumbar spine images from chest abdomen pelvic CT performed same day. Please note that all CT scans at this facility use dose modulation, iterative reconstruction, and/or weight-based dosing when appropriate to reduce radiation dose to as low as reasonably achievable. Comparison: MRI March 31, 2022 Findings: Degenerative facet arthropathy lower lumbar spine without evidence of cortical destruction. No discitis or osteomyelitis. No paraspinal soft tissue mass. Multilevel degenerative changes. No fracture. Impression: No evidence of infection. Please note that all CT scans at this facility use dose modulation, iterative reconstruction, and/or weight-based dosing when appropriate to reduce radiation dose to as low as reasonably achievable. Dictated by Rudy Birmingham MD @ 04/30/2022 11:11:12 AM (Electronically Signed)
--- NOTE | 2022-04-29 16:03 | CRLHL7_ITS ---
For Patients: As a result of the Cures Act, medical imaging exams and procedure reports are released immediately into your electronic medical record. You may view this report before your referring provider. If you have questions, please contact your health care provider. Indication: BACTEREMIA Technique: Reformatted CT thoracic Spine examination. Please note that all CT scans at this facility use dose modulation, iterative reconstruction, and/or weight-based dosing when appropriate to reduce radiation dose to as low as reasonably achievable. Comparison: Chest abdomen pelvic CT same time Findings: No fracture. No discitis or osteomyelitis. No paraspinal soft tissue mass. Multilevel degenerative changes. Impression: No evidence of infection. Please note that all CT scans at this facility use dose modulation, iterative reconstruction, and/or weight-based dosing when appropriate to reduce radiation dose to as low as reasonably achievable. Dictated by Rudy Birmingham MD @ 04/30/2022 10:46:47 AM (Electronically Signed)
[2022-04-29] MEDS: cefTRIAXone 2 GM in 0.9 % SODIUM CHLORIDE Mini-bag 100 ML IVPB (16:04)
[2022-04-29 16:46] VITALS: BP 173/69; PULSE 84; RESP 18; TEMP 36.5; O2SAT 95
[2022-04-29 19:00] VITALS: BP 112/62; PULSE 92; RESP 16; TEMP 36.8; O2SAT 96
[2022-04-29] MEDS: ATORVASTATIN 10 MG TABLET 20 MG PO (20:28)
[2022-04-29] MEDS: DULOXETINE 30 MG CAPSULE DR 60 MG PO (20:29)
[2022-04-29 23:00] VITALS: BP 116/68; PULSE 84; PULSE 92; PULSE 93; RESP 16; TEMP 36.6; O2SAT 96
[2022-04-30] VITALS (7 sets, daily range): BP systolic 111–183; BP diastolic 64–80; PULSE 80–99; RESP 16–18; TEMP 36.6–36.7; O2SAT 93–96
[2022-04-30] MEDS: OXYCODONE 5 MG TABLET PO ×5 (02:10→22:32)
--- NOTE | 2022-04-30 05:30 | PC.NURSE ---
VSS on RA. Patient is alert and oriented x 4, able to verbalize needs to staff. Pain managed with PRN Oxycodone x2 with good effect. Patient requires SDA with transfers and up to bathroom x2. He is continent of bowel and bladder. IV antibiotic completed this shift. Call light within reach. Staff will continue to monitor per plan of care.
[2022-04-30] MEDS: OMEPRAZOLE 20 MG CAPSULE DR PO ×2 (06:56→17:25)
[2022-04-30 06:59] LABS: Hematocrit 24.2 % (37.0-53.0); Immature Granulocytes Pct Auto 0.9 %; Lymphocytes Percent Auto 3.7 % (20-44); Mean Corpuscular HGB Conc 33 gm/dL (32-36); Mean Corpuscular Hemoglobin 30 pg (26-34); Mean Corpuscular Volume 91 fL (80-100); Neutrophils Percent Auto 88.4 % (42.0-72.0); Platelet Count* 363 K/uL (140-440); RDW Coefficient of Variation % 15.2 % (11.5-15.5); Red Blood Count 2.65 m/uL (4.30-5.90); White Blood Count* 14.49 K/uL (4.50-11.00)
[2022-04-30 07:10] LABS: Chloride* 102 mmol/L (96-114); Potassium* 4.3 mmol/L (3.6-5.1); Sodium* 137 mmol/L (135-149)
[2022-04-30 07:12] LABS: Creatinine* 3.5 mg/dL (0.5-1.5); Est. Creatinine Clearance* 19.64; Estimated Glomerular Filt Rate 18 ml/min
[2022-04-30 07:13] LABS: Blood Urea Nitrogen* 74 mg/dL (7-30); Carbon Dioxide* 25 mmol/L (20-32)
[2022-04-30 07:14] LABS: Calcium* 7.3 mg/dL (8.4-10.6); Glucose* 143 mg/dL (60-115)
[2022-04-30 07:16] LABS: C Reactive Protein* 7.9 mg/dL (0.5-1.0)
[2022-04-30 07:22] LABS: Hemoglobin* 7.9 gm/dL (13.5-17.5); Slide Review Reflex No
[2022-04-30] MEDS: predniSONE 20 MG TABLET PO (08:34)
[2022-04-30] MEDS: carvediloL 25 MG TABLET 37.5 MG PO (08:34)
[2022-04-30] MEDS: SODIUM BICARBONATE 650 MG TABLET PO ×2 (08:35→21:24)
[2022-04-30 11:57] LABS: Albumin* 3.2 g/dL (3.3-5.0)
[2022-04-30 12:00] LABS: Alkaline Phosphatase* 95 U/L (40-150); Aspartate Amino Transferase* 30 U/L (12-35); Bilirubin Direct* 0.4 mg/dL (0.0-0.5); Bilirubin Total* 0.4 mg/dL (0.1-1.5); Total Protein* 6.6 g/dL (6.0-8.3)
[2022-04-30 12:01] LABS: Alanine Aminotransferase* 15 U/L (4-50)
--- NOTE | 2022-04-30 12:28 | P.IMPN_ITS ---
Progress Note: A&P Assessment and plan (1) Positive blood cultures: Problem details: - + 04/29 (GPC in chains), formal ID and sensitivity pending (for likely Enterococcus from urine, given absence of other source on workup noted above) - Vanco and Rocephin initiated 04/29 TTE obtained 04/29: Final Impressions: 1. Technically limited exam. 2. Normal LV size, mildly increased wall thickness, normal global systolic function with an estimated EF of 55 - 60%. 3. Right ventricular cavity size is normal, global systolic RV function is normal. 4. Mildly enlarged left atrium. 5. The aortic valve is sclerotic, no stenosis and trivial regurgitation. 6. The mitral valve is thickened, mild to moderate mitral regurgitation. 7. Tricuspid valve is normal. 8. No pericardial effusion. Status: Acute (2) UTI (urinary tract infection): Problem details: + Enterococcus Status: Acute (3) GI bleed: Problem details: - new anemia and guaiac-positive stools, + gastritis on EGD - continue PPI - outpatient colonoscopy Status: Acute (4) Lumbar radiculopathy: Problem details: - acute on chronic, s/p recent L4-5 transforaminal right-sided REBA as an outpatient - CT L spine revealed no evidence of diskitis Status: Acute (5) Right shoulder pain: Problem details: - pain and tenderness primarily in the trapezius muscle on the right, simple strain vs PMR vs infection, improving - continue to follow clinically Status: Acute (6) Stage 3 chronic kidney disease: Problem details: - stable, follows with [place] as outpatient Status: Acute (7) Diabetic neuropathy: Problem details: - Chronic Status: Acute (8) Type 2 diabetes mellitus: Problem details: - continue insulin pump and continuous glucose monitor Status: Acute (9) Hyponatremia: Problem details: - mild, resolved 04/30 Status: Acute (10) Right knee pain: Problem details: - Probably due to osteoarthritis. Good response to cortisone injection Status: Acute (11) Cognitive impairment: Problem details: - MOCA during stay Status: Acute (12) Unsteady gait: Problem details: - PT recommends rear wheel walker Status: Acute (13) Polymyalgia rheumatica: Problem details: - tentative diagnosis based on patient's symptoms, anemia (although would not cause guaiac + stools), and inflammatory markers - outpatient followup to reassess. No symptoms or signs specific to giant cell arteritis [facility] Status: Acute Plan - per above (continue IV antibiotics, await formal sensitivities of blood cultures) - renally dosed Lovenox for prophylaxis Subjective Date Seen: 04/30/22 Interval history: 72-year-old male, admitted to the hospital on 04/28/22 for diffuse achiness and concerns for GI bleed given anemia and guaiac-positive stool. EGD performed 04/29 exhibited gastritis. Patient's right knee continues to feel better after steroid injection by Dr. Antonio 04/29. Discharge was planned for 04/29 afternoon; unfortunately, 2/2 of patient's blood cultures returned + for Gram-positive cocci in chains. Patient has known + Urine Culture for Enterococcus. On 04/29 afternoon: -Vancomycin and Rocephin were initiated - TTE obtained without acute findings - CT C/A/P, thoracic spine and lumbar spine obtained without acute findings Patient has no concerns for hospitalist team this morning. He continues to note diffuse achiness, but no focal pain concerns. No CP or dyspnea. Exam Narrative: Exam Narrative: GEN: Alert and oriented, sitting comfortably in bedside chair in speaking in full sentences, nontoxic in appearance HEENT: Normal external ears, EOMIs bilaterally. CV: RRR, No concerning murmurs, rubs, or gallops R: LCTA bilaterally without concerning wheezing, rales, or rhonchi, air movement adequate Ab: Soft, nontender, no concerning masses Ext: wwp, no concerning edema Skin: No concerning skin lesions or rashes on exposed skin Neuro: Nonfocal Psych: Appropriate Const: Vital Signs, click to edit/add: Vital Signs - 24 hr 04/29/22 16:46 04/29/22 16:46 04/29/22 16:46 Temperature 97.7 F Pulse Rate [Left A pical] 84 84 Pulse Rate [Right Dorsalis Pedis] Respiratory Rate 18 18 18 Blood Pressure [Ri ght Arm] 173/69 H Pulse Oximetry 95 95 Oxygen Delivery Me thod Room Air Room Air 04/29/22 19:00 04/29/22 23:00 04/29/22 23:00 Temperature 98.2 F Pulse Rate [Left A pical] 92 92 Pulse Rate [Right Dorsalis Pedis] 84 Respiratory Rate 16 16 16 Blood Pressure [Ri ght Arm] 112/62 Pulse Oximetry 96 96 Oxygen Delivery Me thod Room Air Room Air 04/29/22 23:00 04/30/22 03:00 Temperature 97.8 F 97.8 F Pulse Rate [Left A pical] 93 87 Pulse Rate [Right Dorsalis Pedis] Respiratory Rate 16 16 Blood Pressure [Ri ght Arm] 116/68 111/69 Pulse Oximetry Oxygen Delivery Me thod Room Air Labs Labs: Laboratory Results - last 24 hr 04/30/22 04/30/22 06:10 06:10 WBC 14.49 H RBC 2.65 L Hgb 7.9 L* Hct 24.2 L MCV 91 MCH 30 MCHC 33 RDW Coeff of Amirah 15.2 Plt Count 363 Neut % (Auto) 88.4 H Lymph % (Auto) 3.7 L [place] % (Auto) 7.0 Eos % (Auto) 0.0 Baso % (Auto) 0.0 Neut # (Auto) 12.80 H Lymph # (Auto) 0.50 L [place] # (Auto) 1.00 H Eos # (Auto) 0.00 Baso # (Auto) 0.00 Sodium 137 Potassium 4.3 Chloride 102 Carbon Dioxide 25 BUN 74 H Creatinine 3.5 H Estimated Creat Clear 19.64 Estimated GFR 18 Glucose 143 H Calcium 7.3 L Total Bilirubin 0.4 Direct Bilirubin 0.4 AST 30 ALT 15 Alkaline Phosphatase 95 C-Reactive Protein 7.9 H Total Protein 6.6 Albumin 3.2 L
[2022-04-30] MEDS: cefTRIAXone 2 GM in 0.9 % SODIUM CHLORIDE Mini-bag 100 ML IVPB (14:46)
[2022-04-30] MEDS: ENOXAPARIN 30 MG/0.3ML INJ SUBCUT (14:46)
--- NOTE | 2022-04-30 19:00 | PC.NURSE ---
shift note: pt up indept with walker in room. IV replaced to Lt hand. pt medicated for chronic lower back and neck pain with oxycodone. pt has 1+ edema to lower rt calf. pt refused to elevate l/e.
[2022-04-30] MEDS: NORTRIPTYLINE HCL 25 MG CAPSULE 100 MG PO (21:24)
[2022-04-30] MEDS: DULOXETINE 30 MG CAPSULE DR 60 MG PO (21:25)
[2022-04-30] MEDS: ATORVASTATIN 10 MG TABLET 20 MG PO (21:25)
[2022-05-01] VITALS (7 sets, daily range): BP systolic 151–170; BP diastolic 79–94; PULSE 78–99; RESP 18–20; TEMP 36.4–36.8; O2SAT 94–96
[2022-05-01] MEDS: fentaNYL 100 MCG/2 ML inj 25 MCG IVP ×4 (00:44→11:29)
[2022-05-01] MEDS: OXYCODONE 5 MG TABLET PO ×3 (02:38→11:29)
--- NOTE | 2022-05-01 06:33 | PC.NURSE ---
[id number]: Patient pleasant and cooperative. Rates pain 10/10 in back of neck and back. PRN Oxycodone administered Q4H with minimal results. Valeriy updated and Fentanyl ordered and administered with little to no relief. Ice and heat both utilized. Independent in room with walker.
[2022-05-01] MEDS: OMEPRAZOLE 20 MG CAPSULE DR PO ×2 (06:42→17:38)
[2022-05-01 06:44] LABS: Hematocrit 24.2 % (37.0-53.0); Immature Granulocytes Pct Auto 1.7 %; Lymphocytes Percent Auto 4.5 % (20-44); Mean Corpuscular HGB Conc 32 gm/dL (32-36); Mean Corpuscular Hemoglobin 30 pg (26-34); Mean Corpuscular Volume 93 fL (80-100); Monocytes Percent Auto 7.1 % (0.0-11.0); Neutrophils Percent Auto 86.7 % (42.0-72.0); Platelet Count* 361 K/uL (140-440); RDW Coefficient of Variation % 15.3 % (11.5-15.5); Red Blood Count 2.61 m/uL (4.30-5.90); White Blood Count* 14.76 K/uL (4.50-11.00)
[2022-05-01 06:53] LABS: Chloride* 101 mmol/L (96-114); Hemoglobin* 7.7 gm/dL (13.5-17.5); Potassium* 4.3 mmol/L (3.6-5.1); Slide Review Reflex No; Sodium* 137 mmol/L (135-149)
[2022-05-01 06:56] LABS: Creatinine* 3.4 mg/dL (0.5-1.5); Est. Creatinine Clearance* 20.22; Estimated Glomerular Filt Rate 19 ml/min
[2022-05-01 06:57] LABS: Blood Urea Nitrogen* 73 mg/dL (7-30); Calcium* 7.4 mg/dL (8.4-10.6); Carbon Dioxide* 25 mmol/L (20-32); Glucose* 163 mg/dL (60-115)
[2022-05-01 07:00] LABS: C Reactive Protein* 8.7 mg/dL (0.5-1.0)
[2022-05-01] MEDS: carvediloL 25 MG TABLET 37.5 MG PO (08:50)
[2022-05-01] MEDS: predniSONE 20 MG TABLET PO (08:51)
[2022-05-01] MEDS: SODIUM BICARBONATE 650 MG TABLET PO ×2 (11:38→21:06)
[2022-05-01] MEDS: ACETAMINOPHEN 325 MG TABLET 650 MG PO ×3 (14:13→21:06)
[2022-05-01] MEDS: OXYCODONE 5 MG TABLET 10 MG PO ×3 (14:14→21:05)
[2022-05-01] MEDS: CYCLOBENZAPRINE HCL 10 MG TABLET PO ×2 (14:15→21:06)
[2022-05-01] MEDS: ENOXAPARIN 30 MG/0.3ML INJ SUBCUT (15:14)
--- NOTE | 2022-05-01 16:19 | P.IMPN_ITS ---
Progress Note: A&P Assessment and plan (1) Positive blood cultures: Problem details: - + on 04/29 (GPC in chains), formal ID and sensitivity still pending (for likely Enterococcus from urine, given absence of other source on workup noted above) - Vanco and Rocephin initiated 04/29 CT scan of spine and TTE obtained 04/29 were negative for obvious infection: Final Impressions: 1. Technically limited exam. 2. Normal LV size, mildly increased wall thickness, normal global systolic function with an estimated EF of 55 - 60%. 3. Right ventricular cavity size is normal, global systolic RV function is normal. 4. Mildly enlarged left atrium. 5. The aortic valve is sclerotic, no stenosis and trivial regurgitation. 6. The mitral valve is thickened, mild to moderate mitral regurgitation. 7. Tricuspid valve is normal. 8. No pericardial effusion. Status: Acute Assessment and Plan: 1. Repeat blood cultures today and then tomorrow morning as well. 2. Continue with IV vanco for now. (2) UTI (urinary tract infection): Problem details: + Enterococcus Status: Acute Assessment and Plan: Continue with IV vancomycin for now. Anticipate might be able to switch over to oral medicine if or when blood cultures are negative. (3) GI bleed: Problem details: - new anemia and guaiac-positive stools, + gastritis on EGD - continue PPI - outpatient colonoscopy Status: Acute Assessment and Plan: Stable for now. Continue monitor. (4) Lumbar radiculopathy: Problem details: - acute on chronic, s/p recent L4-5 transforaminal right-sided REBA as an outpatient - CT L spine revealed no evidence of diskitis Status: Acute Assessment and Plan: 1. Stop the current p.r.n. oxycodone order. 2. Schedule oxycodone 10 mg q.i.d., change oxycodone p.r.n. order to 10 mg q.i.d. p.r.n. 3. Cyclobenzaprine 10 mg p.o. q.i.d. p.r.n. (5) Right shoulder pain: Problem details: - pain and tenderness primarily in the trapezius muscle on the right, simple strain vs PMR vs infection, improving - continue to follow clinically Status: Acute (6) Stage 3 chronic kidney disease: Problem details: - stable, follows with [facility] as outpatient Status: Acute (7) Diabetic neuropathy: Problem details: - Chronic Status: Acute (8) Type 2 diabetes mellitus: Problem details: - continue insulin pump and continuous glucose monitor Status: Acute (9) Hyponatremia: Problem details: - mild, resolved 04/30 Status: Acute (10) Right knee pain: Problem details: - Probably due to osteoarthritis. Good response to cortisone injection Status: Acute (11) Cognitive impairment: Problem details: - MOCA during stay Status: Acute (12) Unsteady gait: Problem details: - PT recommends rear wheel walker Status: Acute (13) Polymyalgia rheumatica: Problem details: - tentative diagnosis based on patient's symptoms, anemia (although would not cause guaiac + stools), and inflammatory markers - outpatient followup to reassess. No symptoms or signs specific to giant cell arteritis tele yeah Status: Acute Assessment and Plan: Consider stopping prednisone soon. Plan Patient agreeable to above stated plans and recommendations. Consider MRI of the spine and SHANNAN if continue to have possible blood cultures Time Spent With Patient Total time spent: 40 minutes Subjective Time Seen by Provider: 11:00 Date Seen: 05/01/22 Interval history: Hospital day number 4. 72-year-old male, admitted to the hospital on 04/28/22 for diffuse achiness and concerns for GI bleed given anemia and guaiac-positive stool. EGD performed 04/29 exhibited gastritis. Patient's right knee continues to feel better after steroid injection by Dr. Antonio 04/29. Discharge was planned for 04/29 afternoon; unfortunately, 2/2 of patient's blood cultures returned + for Gram-positive cocci in chains. Patient has known + Urine Culture for Enterococcus. On 04/29 afternoon: -Vancomycin and Rocephin were initiated - TTE obtained without acute findings - CT C/A/P, thoracic spine and lumbar spine obtained without acute findings Patient has no concerns for hospitalist team this morning. He continues to note diffuse achiness which are not new, but no focal pain concerns. Pain focus is in neck and shoulder region. Has been having this evolve over the last 2 weeks. Has longstanding chronic pain and ordinarily utilizes oxycodone 10 mg 4 times daily. Denies chest heaviness, pressure, tightness, or pain. Denies nausea vomiting. Eating well. Denies diarrhea. Denies constipation. No orthostasis, vertigo, lightheadedness, dizziness, or syncope. No focal motor neurologic deficits. Exam Narrative: Exam Narrative: He appears comfortable when laying still. Appears guarded. Tries not to move. No acute distress. Alert, oriented to self, place, time, situation. Articulate, cooperative, friendly. Lungs are clear to auscultation. Heart tones with regular rhythm. No obvious murmur. Abdomen with active bowel sounds, soft, nontender. Extremities without edema. Skin is warm, dry, intact. No focal motor neurologic deficits. No tremor, asterixis, or ataxia. Const: Vital Signs, click to edit/add: Vital Signs - 24 hr 04/30/22 18:50 04/30/22 19:00 04/30/22 22:41 Temperature 97.9 F 98.1 F Pulse Rate [Left A pical] 80 92 Respiratory Rate 18 18 18 Blood Pressure [Le ft Arm] 118/64 116/70 Pulse Oximetry 93 93 95 Oxygen Delivery Me thod Room Air Room Air Room Air 04/30/22 22:41 05/01/22 03:00 05/01/22 07:00 Temperature 97.9 F 97.6 F Pulse Rate [Left A pical] 95 89 Respiratory Rate 18 20 18 Blood Pressure [Le ft Arm] 135/78 170/94 H Pulse Oximetry 95 94 95 Oxygen Delivery Me thod Room Air Room Air Room Air 05/01/22 07:00 Temperature 97.9 F Pulse Rate [Left A pical] 99 Respiratory Rate 18 Blood Pressure [Le ft Arm] 151/88 H Pulse Oximetry 95 Oxygen Delivery Ok thod Room Air Documenting provider has reviewed patient's vital signs: yes Labs Labs: Laboratory Results - last 24 hr 05/01/22 05/01/22 05:51 05:51 WBC 14.76 H RBC 2.61 L Hgb 7.7 L* Hct 24.2 L MCV 93 MCH 30 MCHC 32 RDW Coeff of [place] 15.3 Plt Count 361 Neut % (Auto) 86.7 H Lymph % (Auto) 4.5 L [place] % (Auto) 7.1 Eos % (Auto) 0.0 Baso % (Auto) 0.0 Neut # (Auto) 12.80 H Lymph # (Auto) 0.70 L [place] # (Auto) 1.00 H Eos # (Auto) 0.00 Baso # (Auto) 0.00 Sodium 137 Potassium 4.3 Chloride 101 Carbon Dioxide 25 BUN 73 H Creatinine 3.4 H Estimated Creat Clear 20.22 Estimated GFR 19 Glucose 163 H Calcium 7.4 L C-Reactive Protein 8.7 H
--- NOTE | 2022-05-01 18:34 | PC.NURSE ---
shift note: pt up indept in room. pt states neck and back pain 12+/10 and is worse than yesterday. pt states he had little sleep during the night due to pain. Pt received fentanyl and oxycodone w/o relief. Dr. Barrios notified of pt's pain. Orders to give scheduled tylenol & oxycodone with flexeril prn. followed up with pt later in day and he stated pain still bad but rating 10/10. Pt using ice paks and aqua K to assist with relief. LS clear. pt afeb. IV patent to lt hand. No BM
[2022-05-01] MEDS: ATORVASTATIN 10 MG TABLET 20 MG PO (21:05)
[2022-05-01] MEDS: DULOXETINE 30 MG CAPSULE DR 60 MG PO (21:06)
[2022-05-01] MEDS: NORTRIPTYLINE HCL 25 MG CAPSULE 100 MG PO (21:06)
[2022-05-02] MEDS: OXYCODONE 5 MG TABLET 10 MG PO ×8 (00:42→23:52)
[2022-05-02 00:49] VITALS: BP 160/77; PULSE 88; RESP 20; TEMP 36.6; O2SAT 94
[2022-05-02] MEDS: OMEPRAZOLE 20 MG CAPSULE DR PO ×2 (06:29→16:54)
--- NOTE | 2022-05-02 06:42 | PC.NURSE ---
End of shift status [id number] Pt alert and oriented. Receiving scheduled Oxy, PRN Oxy and PRN flexeril for chronic back and neck pain. VSS on room air. Blood cultures remain positive with gram positive cocci in chains. Pt manages own insulin pump and glucose monitor. HS reading of 169. Up independently in room. Voiding without difficulty. Pt observed resting throughout night.
[2022-05-02 07:09] LABS: Hemoglobin* 8.1 gm/dL (13.5-17.5); Mean Corpuscular HGB Conc 31 gm/dL (32-36); Mean Corpuscular Hemoglobin 29 pg (26-34); Mean Corpuscular Volume 93 fL (80-100); Platelet Count* 346 K/uL (140-440); White Blood Count* 15.18 K/uL (4.50-11.00)
--- NOTE | 2022-05-02 07:12 | CRLHL7_ITS ---
For Patients: As a result of the Cures Act, medical imaging exams and procedure reports are released immediately into your electronic medical record. You may view this report before your referring provider. If you have questions, please contact your health care provider. Indication: Bacteremia. Technique: CT of the cervical spine performed without IV contrast. Comparison: None available. Findings: The cervical vertebral body heights are maintained. Mild multilevel disc height loss. There is no aggressive appearing endplate erosion. No spondylolisthesis. Moderate to severe multilevel spondylosis, most pronounced at the C5-6 level where there is moderate spinal canal with moderately severe right and moderate left neural foraminal narrowing. Additionally at the C4-5 there is moderately severe right with moderate left neural foraminal narrowing. Moderately severe neural foraminal narrowing on the left at C3-4. Otherwise milder degenerative changes at the remaining cervical levels. No prevertebral soft tissue swelling. Visualized lung apices appear clear. Impression: 1. No acute fracture or traumatic subluxation. 2. No CT evidence to suggest discitis/osteomyelitis. 3. Moderate to severe spondylosis, most pronounced at the C5-6 level. Please note that all CT scans at this facility use dose modulation, iterative reconstruction, and/or weight-based dosing when appropriate to reduce radiation dose to as low as reasonably achievable. Dictated by Flavio Gama MD @ 05/02/2022 9:38:55 AM (Electronically Signed)
[2022-05-02 07:16] LABS: Slide Review Reflex No
[2022-05-02 07:29] LABS: Chloride* 103 mmol/L (96-114); Sodium* 136 mmol/L (135-149)
[2022-05-02 07:30] LABS: Potassium* 4.6 mmol/L (3.6-5.1)
[2022-05-02 07:32] LABS: Creatinine* 2.9 mg/dL (0.5-1.5); Estimated Glomerular Filt Rate 23 ml/min
[2022-05-02 07:33] LABS: Blood Urea Nitrogen* 80 mg/dL (7-30); Calcium* 7.2 mg/dL (8.4-10.6); Carbon Dioxide* 23 mmol/L (20-32); Glucose* 215 mg/dL (60-115)
[2022-05-02 07:36] LABS: C Reactive Protein* 6.2 mg/dL (0.5-1.0)
[2022-05-02 08:21] VITALS: BP 158/77; PULSE 91; RESP 18; TEMP 36.7; O2SAT 94
[2022-05-02] MEDS: predniSONE 20 MG TABLET PO (08:52)
[2022-05-02] MEDS: carvediloL 25 MG TABLET 37.5 MG PO (08:53)
[2022-05-02] MEDS: ACETAMINOPHEN 325 MG TABLET 650 MG PO ×2 (08:53→12:58)
[2022-05-02] MEDS: SENNOSIDES/DOCUSATE TABLET 2 TAB PO (08:53)
[2022-05-02] MEDS: SODIUM BICARBONATE 650 MG TABLET PO ×2 (08:54→20:32)
[2022-05-02 11:35] VITALS: BP 117/79; PULSE 98; RESP 20; TEMP 36.8; O2SAT 93
--- NOTE | 2022-05-02 13:39 | CRLHL7_ITS ---
For Patients: As a result of the Century Cures Act, medical imaging exams and procedure reports are released immediately into your electronic medical record. You may view this report before your referring provider. If you have questions, please contact your health care provider. Indication: Bacteremia. Concern for spinal infection. Technique: MRI of the cervical spine was performed without the use of intravenous contrast. MRI of the thoracic spine was performed without the use of intravenous contrast. MRI of the lumbar spine was performed without the use of intravenous contrast. Comparison: CT cervical spine 05/02/2022. CT lumbar and thoracic spine 04/29/2022. MRI lumbar spine 03/31/2022. Findings: Cervical: The cervical vertebral body heights are maintained without evidence of fracture. Mild multilevel disc desiccation, moderate at C6-7. There is mild bulging complete degenerative marrow edema at the C6-7 level. No abnormal T2 hyperintense signal within the disc spaces No abnormal cord signal. C2-3: No spinal canal or neural foraminal narrowing. C3-4: Disc osteophyte complex eccentric towards the left with m moderate spinal canal narrowing. Moderately severe left and mild right neural foraminal narrowing secondary to uncovertebral joint and facet hypertrophy. Potential impingement of the exiting left C4 nerve. C4-5: Disc osteophyte complex with moderate to severe spinal canal narrowing. Moderately severe right and moderate left neural foraminal narrowing secondary to uncovertebral joint and facet hypertrophy. Potential impingement of the exiting right C5 nerve. C5-6: Disc osteophyte complex with moderate spinal canal narrowing. Moderately severe right and moderate left neural foraminal narrowing secondary to uncovertebral joint and facet hypertrophy. Potential impingement of the exiting right C6 nerve. C6-7: Disc osteophyte complex with mild spinal canal narrowing. Mild neural foraminal narrowing secondary to uncovertebral and facet hypertrophy. C7-T1: No spinal canal or neural foraminal narrowing. Thoracic: Mild anterior wedging deformities of the midthoracic spine. No acute fracture identified. Mild multilevel disc height loss and desiccation. There is no abnormal T2 edematous signal within the disc spaces. No abnormal cord signal. Mild multilevel spondylosis, without overt evidence for high-grade spinal canal or neural foraminal compromise throughout the thoracic spine. Lumbar: There are 5 lumbar type vertebral segments identified. The vertebral body heights are maintained without evidence of fracture. No discrete T1 hypointense marrow infiltrating process. The conus medullaris terminates at T12-L1, normal. Cauda equina appears unremarkable. T12-L1: No spinal canal or neural foraminal stenosis. L1-2: No spinal canal or neural foraminal stenosis. L2-3: Mild disc height loss and desiccation. No spinal canal or neural foramina narrowing. L3-4: Mild is hospice kitchen. Disc bulge couple ligamenta flavum thickening and facet hypertrophy resulting in moderate spinal canal narrowing. [id number] narrowing of the neural foramina appear L4-5: Mild disc height loss and desiccation. Disc bulge coupled with fluid thinking and facet hypertrophy resulting moderate to severe spinal canal narrowing. Previously noted right facet synovial cyst appears to have decreased in size in the interval. Small residual cyst encroaches upon the descending right cauda equina nerve roots. Moderate right and mild left neural foraminal narrowing. There is severe facet degenerative change, with facet effusions and reactive perifacet edema. Edema extending into the pedicles of L5. L5-S1: Severe disc height loss and desiccation. Disc bulge with facet hypertrophy resulting mild spinal canal narrowing. Severe right and mild left neural foraminal narrowing secondary to disc bulging facet hypertrophy. Severe facet arthropathy with facet joint effusions and reactive edema. Bilateral renal cysts. Impression: Cervical: 1. No findings to suggest discitis/osteomyelitis within the cervical spine. 2. At C3-4, moderate spinal canal with moderately severe left and mild right neural foraminal narrowing. Potential impingement of the exiting left C4 nerve. 3. At C4-5, moderate to severe spinal canal with moderately severe right and moderate left neural foraminal narrowing. Potential impingement of the right C5 nerve. 4. At C5-6, moderate spinal canal with moderately severe right and moderate left neural foraminal narrowing. Potential impingement of the right C6 nerve. 5. No abnormal cord signal. Thoracic: 1. No findings to suggest discitis/osteomyelitis within the thoracic spine. 2. Mild multilevel spondylosis without high-grade spinal canal or neural foraminal narrowing. 3. No abnormal cord signal. Lumbar: 1. At L4-5, severe facet arthropathy, with facet joint effusions and reactive edema extending into the L5 pedicles and paraspinal soft tissues. Findings could represent severe reactive/inflammatory arthropathy, with superimposed infectious process not completely excluded. 2. Persistent moderate to severe spinal canal stenosis of the L4-5 level, however with improvement previously noted right facet synovial cyst. Smaller residual cyst encroaches upon the descending right cauda equina nerve roots. 3. At L5-S1, mild spinal canal with severe right and mild left neural foraminal narrowing. Severe facet arthropathy with reactive edema. Dictated by Flavio Gama MD @ 05/02/2022 4:25:25 PM (Electronically Signed)
--- NOTE | 2022-05-02 14:23 | PC.NURSE ---
Pt. ambulating independently. Afebrile. Pain controlled with scheduled Oxycodone and Tylenol. MRI currently in progress.
[2022-05-02 15:00] VITALS: BP 191/92; PULSE 100; PULSE 98; RESP 20; TEMP 36.5; O2SAT 98
[2022-05-02] MEDS: ENOXAPARIN 30 MG/0.3ML INJ SUBCUT (16:00)
--- NOTE | 2022-05-02 17:09 | PM.IMPN1 ---
Progress Note: A&P Assessment and plan (1) Positive blood cultures: Problem details: - + on 04/29 (GPC in chains), formal ID and sensitivity still pending (for likely Enterococcus from urine, given absence of other source on workup noted above) - Vanco and Rocephin initiated 04/29 CT scan of spine and TTE obtained 04/29 were negative for obvious infection: Final Impressions: 1. Technically limited exam. 2. Normal LV size, mildly increased wall thickness, normal global systolic function with an estimated EF of 55 - 60%. 3. Right ventricular cavity size is normal, global systolic RV function is normal. 4. Mildly enlarged left atrium. 5. The aortic valve is sclerotic, no stenosis and trivial regurgitation. 6. The mitral valve is thickened, mild to moderate mitral regurgitation. 7. Tricuspid valve is normal. 8. No pericardial effusion. Status: Acute Assessment and Plan: 1. We still do not have source control of infectious process. 2. MRI suggests that patient may in fact have either an osteomyelitis or diskitis in the lumbosacral spine area. Will need to discuss this further with our radiologist tomorrow to ascertain whether not there is any additional studies a we can do to clarify this. 3. May still warrant transfer to a tertiary medical care facility for consideration of possible SHANNAN. 4. Anticipate need to discuss with infectious disease specialists once we get additional information possibly as early as tomorrow. 5. Continue with vancomycin for now. Will stop ceftriaxone. Will add ampicillin. (2) UTI (urinary tract infection): Problem details: + Enterococcus Status: Acute Assessment and Plan: Continue with IV vancomycin and add ampicillin. (3) GI bleed: Problem details: - new anemia and guaiac-positive stools, + gastritis on EGD - continue PPI - outpatient colonoscopy Status: Acute (4) Lumbar radiculopathy: Problem details: - acute on chronic, s/p recent L4-5 transforaminal right-sided REBA as an outpatient - CT L spine revealed no evidence of diskitis Status: Acute Assessment and Plan: The injection site for his REBA could in fact have been a portal for infection. (5) Right shoulder pain: Problem details: - pain and tenderness primarily in the trapezius muscle on the right, simple strain vs PMR vs infection, improving - continue to follow clinically Status: Acute (6) Stage 3 chronic kidney disease: Problem details: - stable, follows with [facility] as outpatient Status: Acute (7) Diabetic neuropathy: Problem details: - Chronic Status: Acute (8) Type 2 diabetes mellitus: Problem details: - continue insulin pump and continuous glucose monitor Status: Acute (9) Hyponatremia: Problem details: - mild, resolved 04/30 Status: Acute (10) Right knee pain: Problem details: - Probably due to osteoarthritis. Good response to cortisone injection Status: Acute (11) Cognitive impairment: Problem details: - MOCA during stay Status: Acute (12) Unsteady gait: Problem details: - PT recommends rear wheel walker Status: Acute (13) Polymyalgia rheumatica: Problem details: - tentative diagnosis based on patient's symptoms, anemia (although would not cause guaiac + stools), and inflammatory markers - outpatient followup to reassess. No symptoms or signs specific to giant cell arteritis tele yeah Status: Acute Assessment and Plan: I doubt polymyalgia rheumatica. Will stop prednisone. Time Spent With Patient Total time spent: 50 minutes Subjective Time Seen by Provider: 12:00 Date Seen: 05/02/22 Interval history: Hospital day number 5. 72-year-old male, admitted to the hospital on 04/28/22 for diffuse achiness and concerns for GI bleed given anemia and guaiac-positive stool. EGD performed 04/29 exhibited gastritis. Patient's right knee continues to feel better after steroid injection by Dr. Antonio 04/29. Discharge was planned for 04/29 afternoon; unfortunately, 2/2 of patient's blood cultures returned + for Gram-positive cocci in chains. Patient has known + Urine Culture for Enterococcus. On 04/29 afternoon: -Vancomycin and Rocephin were initiated - TTE obtained without acute findings - CT C/A/P, thoracic spine and lumbar spine obtained without acute findings Yesterday patient had fairly significant amount of pain. Much improved today. We did make some modifications in his medication regimen. He is tolerating increased activities today. Otherwise no other focal symptoms. Denies chest heaviness, pressure, tightness, or pain. Denies nausea vomiting. Eating well. Denies diarrhea. Denies constipation. No orthostasis, vertigo, lightheadedness, dizziness, or syncope. No focal motor neurologic deficits. Blood cultures continued to come back positive for Gram-positive cocci. Still waiting ID and sensitivities of the blood cultures. Exam Narrative: Exam Narrative: Appears comfortable no acute distress. Alert, oriented to person, place, time, and situation. Articulate, friendly, cooperative. Mood and affect are congruent. Lungs are remarkably clear to auscultation. Heart tones with regular rhythm without obvious murmur gallop or rub. Abdomen with active bowel sounds, soft, nontender. Extremities without edema. Independent transfer, station and gait. Skin is warm, dry, intact. No petechiae, rashes, or jaundice. Const: Vital Signs, click to edit/add: Vital Signs - 24 hr 05/01/22 17:50 05/01/22 20:04 05/01/22 23:04 Temperature 97.8 F 98.2 F Pulse Rate [Left A pical] 95 98 Respiratory Rate 20 18 18 Blood Pressure [Le ft Arm] 156/79 H Pulse Oximetry 96 94 94 Oxygen Delivery Me thod Room Air Room Air Room Air 05/02/22 00:49 05/02/22 08:21 05/02/22 08:21 Temperature 98 F 98.1 F Pulse Rate [Left A pical] 88 91 Respiratory Rate 20 18 Blood Pressure [Le ft Arm] 160/77 H 158/77 H Pulse Oximetry 94 94 94 Oxygen Delivery Me thod Room Air Room Air Room Air 05/02/22 11:35 05/02/22 15:00 05/02/22 15:00 Temperature 98.2 F Pulse Rate [Left A pical] 98 98 Respiratory Rate 20 20 20 Blood Pressure [Le ft Arm] 117/79 Pulse Oximetry 93 98 Oxygen Delivery Me thod Room Air Room Air 05/02/22 15:00 Temperature 97.7 F Pulse Rate [Left A pical] 100 Respiratory Rate 20 Blood Pressure [Le ft Arm] 191/92 H Pulse Oximetry 98 Oxygen Delivery Me thod Room Air Labs Labs: Laboratory Results - last 24 hr 05/02/22 05/02/22 05/02/22 06:40 06:40 06:40 WBC 15.18 H RBC 2.80 L Hgb 8.1 L Hct 26.0 L MCV 93 MCH 29 MCHC 31 L Plt Count 346 ESR Sodium 136 Potassium 4.6 Chloride 103 Carbon Dioxide 23 BUN 80 H Creatinine 2.9 H Estimated Creat Clear 23.70 Estimated GFR 23 Glucose 215 H Calcium 7.2 L C-Reactive Protein 6.2 H Imaging MR - Other: Attestation: I have reviewed the pertinent imaging results. Radiologist's impression: MR of cervical spine, thoracic spine and lumbosacral spine: Impression: Cervical: 1. No findings to suggest discitis/osteomyelitis within the cervical spine. 2. At C3-4, moderate spinal canal with moderately severe left and mild right neural foraminal narrowing. Potential impingement of the exiting left C4 nerve. 3. At C4-5, moderate to severe spinal canal with moderately severe right and moderate left neural foraminal narrowing. Potential impingement of the right C5 nerve. 4. At C5-6, moderate spinal canal with moderately severe right and moderate left neural foraminal narrowing. Potential impingement of the right C6 nerve. 5. No abnormal cord signal. Thoracic: 1. No findings to suggest discitis/osteomyelitis within the thoracic spine. 2. Mild multilevel spondylosis without high-grade spinal canal or neural foraminal narrowing. 3. No abnormal cord signal. Lumbar: 1. At L4-5, severe facet arthropathy, with facet joint effusions and reactive edema extending into the L5 pedicles and paraspinal soft tissues. Findings could represent severe reactive/inflammatory arthropathy, with superimposed infectious process not completely excluded. 2. Persistent moderate to severe spinal canal stenosis of the L4-5 level, however with improvement previously noted right facet synovial cyst. Smaller residual cyst encroaches upon the descending right cauda equina nerve roots. 3. At L5-S1, mild spinal canal with severe right and mild left neural foraminal narrowing. Severe facet arthropathy with reactive edema.
[2022-05-02 19:00] VITALS: BP 172/81; PULSE 86; RESP 20; TEMP 36.6; O2SAT 96
[2022-05-02] MEDS: ATORVASTATIN 10 MG TABLET 20 MG PO (20:30)
[2022-05-02] MEDS: DULOXETINE 30 MG CAPSULE DR 60 MG PO (20:30)
[2022-05-02] MEDS: NORTRIPTYLINE HCL 25 MG CAPSULE 100 MG PO (20:31)
--- NOTE | 2022-05-02 22:24 | PC.NURSE ---
15-23: indep. VSS. Pt shares BG readings from Dexcom, pt placed insulin pump today after MRI. No BM. Rating back pain 8-10/10, pt states 8/10 is ?not bad?. ?
[2022-05-02 23:40] VITALS: BP 176/93; PULSE 91; RESP 20; TEMP 36.6; O2SAT 96
[2022-05-02] MEDS: MELATONIN 3 MG TABLET PO (23:51)
[2022-05-03] VITALS (7 sets, daily range): BP systolic 167–179; BP diastolic 80–92; PULSE 84–99; RESP 14–20; TEMP 36.4–36.8; O2SAT 95–99
[2022-05-03] MEDS: fentaNYL 100 MCG/2 ML inj 25 MCG IVP (04:05)
[2022-05-03] MEDS: OXYCODONE 5 MG TABLET 10 MG PO ×7 (06:26→23:28)
[2022-05-03] MEDS: OMEPRAZOLE 20 MG CAPSULE DR PO ×2 (06:27→17:09)
--- NOTE | 2022-05-03 06:49 | PC.NURSE ---
Shift note: The pt has been pleasant and cooperative. No fever noted. The pt has been C/O, moderated to severe back, left hip, left shoulder ,and neck pain; The pain medications have been given as ordered with minimal relief. After IV fentanyl was given the pt stated he slept a little bit. Melatonin was given. Bs was 58 after midnight, the pt was given apple juice , Blood sugar came up to 106 in about 15 minutes . The pt uses insulin pump; the pump has been working .
--- NOTE | 2022-05-03 06:59 | PC.NURSE ---
Shift note: The pt has been pleasant and cooperative. The pt has been denying chest pain, abdominal pain, short of breath, nausea, or vomiting throughout the night. The pt reported that he had small soft BM. Up to the BR independently. C/o of incontinent of urine. PPN has been running at 40 ML/HR . The pt has been tolerating the infusion.
[2022-05-03 08:06] LABS: HCO3 VBG 26 mmol/L (21-28); PCO2 VBG 40 mmHG (40-50); pH VBG 7.416 (7.32-7.43)
[2022-05-03 08:11] LABS: Eosinophils Percent Auto 0.1 % (0.0-7.0); Hematocrit 26.1 % (37.0-53.0); Hemoglobin* 8.3 gm/dL (13.5-17.5); Immature Granulocytes Pct Auto 1.9 %; Lymphocytes Percent Auto 7.7 % (20-44); Mean Corpuscular HGB Conc 32 gm/dL (32-36); Mean Corpuscular Hemoglobin 29 pg (26-34); Mean Corpuscular Volume 92 fL (80-100); Neutrophils Percent Auto 82.3 % (42.0-72.0); Platelet Count* 330 K/uL (140-440); RDW Coefficient of Variation % 15.4 % (11.5-15.5); Red Blood Count 2.83 m/uL (4.30-5.90); White Blood Count* 16.45 K/uL (4.50-11.00)
[2022-05-03 08:16] LABS: Slide Review Reflex No
[2022-05-03 08:24] LABS: Chloride* 103 mmol/L (96-114); Potassium* 4.6 mmol/L (3.6-5.1); Sodium* 137 mmol/L (135-149)
[2022-05-03 08:26] LABS: Est. Creatinine Clearance* 22.91; Estimated Glomerular Filt Rate 22 ml/min
[2022-05-03 08:27] LABS: Blood Urea Nitrogen* 72 mg/dL (7-30); Carbon Dioxide* 23 mmol/L (20-32)
[2022-05-03 08:28] LABS: Calcium* 7.2 mg/dL (8.4-10.6); Glucose* 90 mg/dL (60-115)
[2022-05-03 08:30] LABS: C Reactive Protein* 5.1 mg/dL (0.5-1.0)
[2022-05-03] MEDS: carvediloL 25 MG TABLET 37.5 MG PO (08:56)
[2022-05-03] MEDS: SENNOSIDES/DOCUSATE TABLET 2 TAB PO (08:57)
[2022-05-03] MEDS: SODIUM BICARBONATE 650 MG TABLET PO ×2 (08:57→21:06)
[2022-05-03] MEDS: AMPICILLIN 2 GM in 0.9 % SODIUM CHLORIDE Mini-bag 100 ML IVPB ×2 (10:57→16:23)
[2022-05-03] MEDS: 0.9 % SODIUM CHLORIDE 250 ml IV (10:58)
--- NOTE | 2022-05-03 13:26 | PM.IMPN1 ---
Progress Note: A&P Assessment and plan (1) Positive blood cultures: Problem details: - + from04/28, 04/30, 05/01 GPC in chains, now identified as Enterococcus faecalis, pansensitive: Ampicillin, daptomycin, linezolid, tigecycline, vancomycin. - Vanco and Rocephin initiated 04/29. Ceftriaxone and vancomycin stopped on 05/03/2022. We started ampicillin 2 g IV Q 6 hours 05/03/2022, dose adjusted for poor renal function. CT scan of spine and TTE obtained 04/29 were negative for obvious infection: Final Impressions: 1. Technically limited exam. 2. Normal LV size, mildly increased wall thickness, normal global systolic function with an estimated EF of 55 - 60%. 3. Right ventricular cavity size is normal, global systolic RV function is normal. 4. Mildly enlarged left atrium. 5. The aortic valve is sclerotic, no stenosis and trivial regurgitation. 6. The mitral valve is thickened, mild to moderate mitral regurgitation. 7. Tricuspid valve is normal. 8. No pericardial effusion. MRI of the cervical spine, thoracic spine, lumbosacral spine obtained on 05/02/2022: Multilevel degenerative disc disease and degenerative joint disease noted. Additionally, a worrisome finding as follows: At L4-5, severe facet arthropathy, with facet joint effusions and reactive edema extending into the L5 pedicles and paraspinal soft tissues. Findings could represent severe reactive/inflammatory arthropathy, with superimposed infectious process not completely excluded. Source of infection still not clearly identified, but suspicious that it might be at the L4-L5 level where patient received an epidural steroid injection on Tuesday04/20/2022. Status: Acute Assessment and Plan: 1. Stop vancomycin and ceftriaxone. 2. Start ampicillin 2 g IV q.6 hours. This is renally dosed, to reflect his chronic kidney disease stage 4 status. 3. I spent 50 minutes on the telephone today with the [facility] trying to speak with an infectious disease specialist. At the time my conversation ended, at 11:10 a.m., I had left the patient identifying information and the reason for my call, mainly, persistent Gram-positive cocci bacteremia, and I also left my name and cell telephone number for an infectious disease specialist to return my call to discuss this case to try to establish plan forward. The number I called in the 1st place was [phone]. Later I was transferred to the [facility] at [phone], who then transferred me to the [facility]. Eventually I was transferred to the [place] on-call answering service. I left the information that I specified above with each of these different individuals. As of right now have yet to receive a call back. 4. In time patient will require a transesophageal echocardiogram, a colonoscopy, and possibly a cystoscopy. 5. For the time being patient appears to be requiring a minimum of 6 weeks of IV antibiotics. Meanwhile we need to get to the point where the patient is no longer bacteremic. Will continue to obtain blood cultures daily. It certainly is noteworthy that clinically patient appears to be stable with vital signs including no fever, hypotension, tachycardia, tachypnea, rigors or diaphoresis. No other symptoms to suggest another focus of infection at this time. No septic embolic phenomenon at this juncture. 6. Consider a PICC line placement for ongoing IV antibiotics if were able to establish that patient is no longer bacteremic. (2) UTI (urinary tract infection): Problem details: + Enterococcus Status: Acute Assessment and Plan: Changed from IV vanco to IV ampicillin. (3) GI bleed: Problem details: - new anemia and guaiac-positive stools, + gastritis on EGD - continue PPI - outpatient colonoscopy Status: Acute (4) Lumbar radiculopathy: Problem details: - acute on chronic, s/p recent L4-5 transforaminal right-sided REBA as an outpatient - CT L spine revealed no evidence of diskitis Status: Acute (5) Right shoulder pain: Problem details: - pain and tenderness primarily in the trapezius muscle on the right, simple strain vs PMR vs infection, improving - continue to follow clinically Status: Acute (6) Stage 3 chronic kidney disease: Problem details: - stable, follows with [facility] as outpatient Creatinine normally runs around 3, with creatinine clearance of 22, and eGFR of 22, suggestive of chronic kidney disease stage 4. Status: Acute (7) Diabetic neuropathy: Problem details: - Chronic Status: Acute (8) Type 2 diabetes mellitus: Problem details: - continue insulin pump and continuous glucose monitor Status: Acute (9) Hyponatremia: Problem details: - mild, resolved 04/30 Status: Acute (10) Right knee pain: Problem details: - Probably due to osteoarthritis. Good response to cortisone injection Status: Acute (11) Cognitive impairment: Problem details: - MOCA during stay Status: Acute (12) Unsteady gait: Problem details: - PT recommends rear wheel walker Status: Acute (13) Polymyalgia rheumatica: Problem details: - tentative diagnosis based on patient's symptoms, anemia (although would not cause guaiac + stools), and inflammatory markers. I doubt the patient has polymyalgia rheumatica. - outpatient follow-up to reassess. No symptoms or signs specific to giant cell arteritis Status: Acute Assessment and Plan: Stop prednisone therapy. Plan 1. Continue to try to make contact with an infectious disease specialist. 2. Continue with treatments as specified above. 3. Patient agreeable with above stated plans and recommendations for now. 4. Patient weighing the existential question about whether not it is even worth that he continue to pursue this disease process. For now he wants to continue to assist him in this effort. Time Spent With Patient Total time spent: 50 minutes Subjective Time Seen by Provider: 10:00 Date Seen: 05/03/22 Interval history: Hospital day number 6. 72-year-old male, admitted to the hospital on 04/28/22 for diffuse achiness and concerns for GI bleed given anemia and guaiac-positive stool. EGD performed 04/29 exhibited gastritis. Patient's right knee continues to feel better after steroid injection by Dr. Antonio 04/29. Discharge was planned for 04/29 afternoon; unfortunately, 2/2 of patient's blood cultures returned + for Gram-positive cocci in chains. Patient has known + Urine Culture for Enterococcus. On 04/29 afternoon: -Vancomycin and Rocephin were initiated - TTE obtained without acute findings - CT C/A/P, thoracic spine and lumbar spine obtained without acute findings, later CT cervical spine also without source of infection - MR 05/02/2022 of cervical, thoracic, and lumbo-sacral spine, in addition to demonstrating multilevel DJD and DDD, suggests a possible source of infection at L4-L5with facet joint effusions and edema extending into the L5 pedicles and paraspinal soft tissues. Discussed with interventional radiologist, Dr. Rudy Nickerson, who indicates that this is not amenable to aspiration efforts. Since we made some modifications in his medication regimen, his pain in his neck, shoulders, and back is a little better controlled. He is tolerating increased activities today. Otherwise no other focal symptoms. Denies chest heaviness, pressure, tightness, or pain. Denies nausea vomiting. Eating well. Denies diarrhea. Denies constipation. No orthostasis, vertigo, lightheadedness, dizziness, or syncope. No focal motor neurologic deficits, including change in bowel or bladder function, lower extremity weakness. Also, I discontinued his scheduled APAP yesterday and he continues to not have a fever. Blood cultures continued to come back positive for Gram-positive cocci. All blood cultures growing out enterococcus faecalis, pansensitive, including to ampicillin, daptomycin, linezolid, tigecycline, and vancomycin. Exam Narrative: Exam Narrative: Appears comfortable. No acute distress. No obvious focal motor neurologic deficits in upper and lower extremities. Independent transfer, station, and gait. Lungs are clear to auscultation. No CVA tenderness to percussion. Heart tones with regular rhythm without murmur, gallop, or rub. Abdomen with active bowel sounds, soft, nontender. Extremities with edema up to the knees. Skin is warm, dry, intact. Const: Vital Signs, click to edit/add: Vital Signs - 24 hr 05/02/22 15:00 05/02/22 15:00 05/02/22 15:00 Temperature 97.7 F Pulse Rate [Left A pical] 98 100 Respiratory Rate 20 20 20 Blood Pressure [Le ft Arm] 191/92 H Pulse Oximetry 98 98 Oxygen Delivery Me thod Room Air Room Air 05/02/22 19:00 05/02/22 23:40 05/02/22 23:40 Temperature 98 F Pulse Rate [Left A pical] 86 91 Respiratory Rate 20 20 20 Blood Pressure [Le ft Arm] 172/81 H Pulse Oximetry 96 96 Oxygen Delivery Me thod Room Air Room Air 05/02/22 23:40 05/03/22 03:40 05/03/22 07:00 Temperature 97.9 F 98.3 F 97.9 F Pulse Rate [Left A pical] 91 91 84 Respiratory Rate 20 20 14 Blood Pressure [Le ft Arm] 176/93 H 169/92 H 179/81 H Pulse Oximetry 96 95 96 Oxygen Delivery Dc thod Room Air Room Air Room Air 05/03/22 07:00 05/03/22 07:00 05/03/22 11:00 Temperature 97.5 F L Pulse Rate [Left A pical] 84 88 Respiratory Rate 14 14 14 Blood Pressure [Le ft Arm] 170/80 H Pulse Oximetry 96 98 Oxygen Delivery Me thod Room Air Room Air Documenting provider has reviewed patient's vital signs: yes Labs Labs: Laboratory Results - last 24 hr 05/03/22 05/03/22 05/03/22 07:15 08:00 08:00 WBC 16.45 H RBC 2.83 L Hgb 8.3 L Hct 26.1 L MCV 92 MCH 29 MCHC 32 RDW Coeff of [place] 15.4 Plt Count 330 Neut % (Auto) 82.3 H Lymph % (Auto) 7.7 L [place] % (Auto) 8.0 Eos % (Auto) 0.1 Baso % (Auto) 0.0 Neut # (Auto) 13.50 H Lymph # (Auto) 1.30 [place] # (Auto) 1.30 H Eos # (Auto) 0.00 Baso # (Auto) 0.00 VBG pH 7.416 VBG pCO2 40 VBG pO2 52.0 H VBG HCO3 26 Sodium 137 Potassium 4.6 Chloride 103 Carbon Dioxide 23 BUN 72 H Creatinine 3.0 H Estimated Creat Clear 22.91 Estimated GFR 22 Glucose 90 Calcium 7.2 L C-Reactive Protein 5.1 H
[2022-05-03] MEDS: ENOXAPARIN 30 MG/0.3ML INJ SUBCUT (13:40)
[2022-05-03] MEDS: SODIUM CHLORIDE 0.9 % (FLUSH) 10 ML SYRINGE IVF (16:23)
--- NOTE | 2022-05-03 18:42 | PC.NURSE ---
End of Shift: Patient pleasant and cooperative. Patient hypertensive, but vitally stable, lungs clear, BS WNL, IV intact. Patient independent in room. Patient rates pain at most 10/10, 10mg scheduled oxy only given. Patient rates pain mainly on right side of body(back, neck, leg). Patient tolerating regular diet and urinating. No BM.
[2022-05-03] MEDS: ATORVASTATIN 10 MG TABLET 20 MG PO (21:05)
[2022-05-03] MEDS: MELATONIN 3 MG TABLET PO (21:05)
[2022-05-03] MEDS: DULOXETINE 30 MG CAPSULE DR 60 MG PO (21:05)
[2022-05-03] MEDS: NORTRIPTYLINE HCL 25 MG CAPSULE 100 MG PO (21:06)
[2022-05-03] MEDS: CYCLOBENZAPRINE HCL 10 MG TABLET PO (21:06)
[2022-05-03] MEDS: HYDROmorphone 2 MG TABLET PO (21:34)
[2022-05-03] MEDS: AMPICILLIN 2 GM VIAL IM (23:19)
[2022-05-04] VITALS (7 sets, daily range): BP systolic 115–189; BP diastolic 69–91; PULSE 86–105; RESP 16–20; TEMP 36.6–36.8; O2SAT 95–98
[2022-05-04] MEDS: OXYCODONE 5 MG TABLET 10 MG PO ×7 (02:36→23:36)
[2022-05-04] MEDS: CYCLOBENZAPRINE HCL 10 MG TABLET PO ×2 (02:37→23:36)
[2022-05-04] MEDS: AMPICILLIN 2 GM VIAL IM (04:42)
[2022-05-04] MEDS: OMEPRAZOLE 20 MG CAPSULE DR PO ×2 (06:01→17:51)
[2022-05-04 06:49] LABS: Lactate* 0.7 mmol/L (0.5-1.9)
--- NOTE | 2022-05-04 06:52 | PC.NURSE ---
: pt c/o pain >10/10, see eMar for meds given. Pt alternating between heat and ice for pain. Pt expressing general ?achiness? to right side of his body- should and knee.?IV infiltrated, DC?d- cath intact. Pt refused new IV placement. updated, IM ampicillin ordered. ?
[2022-05-04 06:59] LABS: Eosinophils Percent Auto 2.6 % (0.0-7.0); Hematocrit 27.7 % (37.0-53.0); Hemoglobin* 8.7 gm/dL (13.5-17.5); Lymphocytes Percent Auto 10.7 % (20-44); Mean Corpuscular HGB Conc 31 gm/dL (32-36); Mean Corpuscular Hemoglobin 29 pg (26-34); Mean Corpuscular Volume 93 fL (80-100); Monocytes Percent Auto 9.7 % (0.0-11.0); Platelet Count* 347 K/uL (140-440); Red Blood Count 2.99 m/uL (4.30-5.90); Slide Review Reflex No; White Blood Count* 17.58 K/uL (4.50-11.00)
[2022-05-04 07:08] LABS: Chloride* 102 mmol/L (96-114); Glucose* 83 mg/dL (60-115); Potassium* 4.8 mmol/L (3.6-5.1)
[2022-05-04 07:09] LABS: Blood Urea Nitrogen* 70 mg/dL (7-30); C Reactive Protein* 6.4 mg/dL (0.5-1.0); Calcium* 7.2 mg/dL (8.4-10.6); Carbon Dioxide* 25 mmol/L (20-32); Creatinine* 2.8 mg/dL (0.5-1.5); Est. Creatinine Clearance* 24.55; Estimated Glomerular Filt Rate 24 ml/min; Sodium* 136 mmol/L (135-149)
[2022-05-04 08:00] LABS: Erythrocyte SedimentationRate* >102 mm/hr (2-15)
[2022-05-04] MEDS: carvediloL 25 MG TABLET 37.5 MG PO (08:40)
[2022-05-04] MEDS: SENNOSIDES/DOCUSATE TABLET 2 TAB PO (08:40)
[2022-05-04] MEDS: SODIUM BICARBONATE 650 MG TABLET PO ×2 (08:42→20:10)
[2022-05-04] MEDS: SODIUM CHLORIDE 0.9 % (FLUSH) 10 ML SYRINGE IVF ×2 (10:48→17:51)
[2022-05-04] MEDS: AMPICILLIN 2 GM in 0.9 % SODIUM CHLORIDE Mini-bag 100 ML IVPB ×3 (10:51→23:36)
[2022-05-04] MEDS: ENOXAPARIN 30 MG/0.3ML INJ SUBCUT (13:43)
--- NOTE | 2022-05-04 16:08 | CRLHL7_ITS ---
For Patients: As a result of the Century Cures Act, medical imaging exams and procedure reports are released immediately into your electronic medical record. You may view this report before your referring provider. If you have questions, please contact your health care provider. Indication: Bacteremia. Technique: Axial and sagittal T1 precontrast and postcontrast MR images acquired through the lumbar spine. Comparison: MRI lumbar spine 05/02/2022. Findings: Enhancement involving the bilateral L4-5 and right L5-S1 articulating facets with extension into the right greater than left posterior paraspinal soft tissues. Diffuse enhancement involving the L4 spinous process. Circumferential epidural enhancement from the L4-5 level caudally through the sacral canal, likely representing phlegmon/inflammation. Small hypoenhancement within the ventral epidural space at the L5 level measuring up to 1.2 cm in craniocaudal dimension (series 5, image 7 and series 4, image 34) as well as a thin hypoenhancement along the ventral margin of the right L4-5 facet joint (series 4, image 30), concerning for epidural abscesses. There is high-grade thecal sac effacement at L4-5, and to a lesser degree at L5-S1. Modest paravertebral enhancement at L5-S1 in addition to small presacral enhancement and edema. Impression: Enhancement involving the bilateral L4-5 and right L5-S1 articulating facets with extension into the right greater than left posterior paraspinal soft tissues. Circumferential epidural enhancement from L4-5 through the sacral canal, likely representing phlegmon/inflammation. Small hypoenhancement within the ventral epidural space at L5 and along the ventral right L4-5 facet joint, concerning for epidural abscesses. There is high-grade thecal sac effacement at L4-5 and to a lesser degree at L5-S1. Dictated by Aldo Frances MD @ 05/06/2022 2:43:05 PM (Electronically Signed)
--- NOTE | 2022-05-04 16:13 | PM.IMPN1 ---
Progress Note: A&P Assessment and plan (1) Positive blood cultures: Problem details: - + from04/28, 04/30, 05/01 GPC in chains, now identified as Enterococcus faecalis, pansensitive: Ampicillin, daptomycin, linezolid, tigecycline, vancomycin. - Vanco and Rocephin initiated 04/29. Ceftriaxone and vancomycin stopped on 05/03/2022. We started ampicillin 2 g IV Q 6 hours 05/03/2022, dose adjusted for poor renal function. CT scan of spine and TTE obtained 04/29 were negative for obvious infection: Final Impressions: 1. Technically limited exam. 2. Normal LV size, mildly increased wall thickness, normal global systolic function with an estimated EF of 55 - 60%. 3. Right ventricular cavity size is normal, global systolic RV function is normal. 4. Mildly enlarged left atrium. 5. The aortic valve is sclerotic, no stenosis and trivial regurgitation. 6. The mitral valve is thickened, mild to moderate mitral regurgitation. 7. Tricuspid valve is normal. 8. No pericardial effusion. MRI of the cervical spine, thoracic spine, lumbosacral spine obtained on 05/02/2022: Multilevel degenerative disc disease and degenerative joint disease noted. Additionally, a worrisome finding as follows: At L4-5, severe facet arthropathy, with facet joint effusions and reactive edema extending into the L5 pedicles and paraspinal soft tissues. Findings could represent severe reactive/inflammatory arthropathy, with superimposed infectious process not completely excluded. Source of infection still not clearly identified, but suspicious that it might be at the L4-L5 level where patient received an epidural steroid injection on Tuesday04/20/2022. Status: Acute (2) UTI (urinary tract infection): Problem details: + Enterococcus Status: Acute (3) GI bleed: Problem details: - new anemia and guaiac-positive stools, + gastritis on EGD - continue PPI - outpatient colonoscopy Status: Acute (4) Lumbar radiculopathy: Problem details: - acute on chronic, s/p recent L4-5 transforaminal right-sided REBA as an outpatient - CT L spine revealed no evidence of diskitis Status: Acute (5) Right shoulder pain: Problem details: - pain and tenderness primarily in the trapezius muscle on the right, simple strain vs PMR vs infection, improving - continue to follow clinically Status: Acute (6) Stage 3 chronic kidney disease: Problem details: - stable, follows with [place] as outpatient Creatinine normally runs around 3, with creatinine clearance of 22, and eGFR of 22, suggestive of chronic kidney disease stage 4. Status: Acute (7) Diabetic neuropathy: Problem details: - Chronic Status: Acute (8) Type 2 diabetes mellitus: Problem details: - continue insulin pump and continuous glucose monitor Status: Acute (9) Hyponatremia: Problem details: - mild, resolved 04/30 Status: Acute (10) Right knee pain: Problem details: - Probably due to osteoarthritis. Good response to cortisone injection Status: Acute (11) Cognitive impairment: Problem details: - MOCA during stay Status: Acute (12) Unsteady gait: Problem details: - PT recommends rear wheel walker Status: Acute (13) Polymyalgia rheumatica: Problem details: - tentative diagnosis based on patient's symptoms, anemia (although would not cause guaiac + stools), and inflammatory markers. I doubt the patient has polymyalgia rheumatica. - outpatient follow-up to reassess. No symptoms or signs specific to giant cell arteritis Status: Acute Plan 1. Still unable to reach infectious disease specialist. 2. Will obtain an MR scan of the lumbosacral spine without and with gadolinium to assess for acute inflammatory process. 3. Continue with blood cultures daily. 4. Continue with ampicillin 2 g IV q.6, dose modified for decreased renal function. 5. We will need a transesophageal echo, and colonoscopy. May need cystoscopy. 6. Patient agreeable above stated plans and recommendations. Time Spent With Patient Total time spent: 30 minutes Subjective Time Seen by Provider: 09:00 Date Seen: 05/04/22 Interval history: Hospital day number 7. 72-year-old male, admitted to the hospital on 04/28/22 for diffuse achiness and concerns for GI bleed given anemia and guaiac-positive stool. EGD performed 04/29 exhibited gastritis. Patient's right knee continues to feel better after steroid injection by Dr. Antonio 04/29. Discharge was planned for 04/29 afternoon; unfortunately, 2/2 of patient's blood cultures returned + for Gram-positive cocci in chains. Patient has known + Urine Culture for Enterococcus. On 04/29 afternoon: -Vancomycin and Rocephin were initiated - TTE obtained without acute findings - CT C/A/P, thoracic spine and lumbar spine obtained without acute findings, later CT cervical spine also without source of infection - MR 05/02/2022 of cervical, thoracic, and lumbo-sacral spine, in addition to demonstrating multilevel DJD and DDD, suggests a possible source of infection at L4-L5with facet joint effusions and edema extending into the L5 pedicles and paraspinal soft tissues. Discussed with interventional radiologist, Dr. Rudy Nickerson, who indicates that this is not amenable to aspiration efforts. Since we made some modifications in his medication regimen, his pain in his neck, shoulders, and back is a little better controlled, albeit not resolved by any stretch of the imagination. He is tolerating increased activities. Otherwise no other focal symptoms. Denies chest heaviness, pressure, tightness, or pain. Denies nausea vomiting. Eating well. Denies diarrhea. Denies constipation. No orthostasis, vertigo, lightheadedness, dizziness, or syncope. No focal motor neurologic deficits, including change in bowel or bladder function, lower extremity weakness. Still has no fever, rigors, diaphoresis. All blood cultures growing out enterococcus faecalis, pansensitive, including to ampicillin, daptomycin, linezolid, tigecycline, and vancomycin. Late this morning the blood culture from 05/02/2022 also came back positive for Gram-positive cocci. Initially blood cultures were positive within a few hours of drawing the blood and setting it up. Over time that interim of time from setting up the blood culture the time it becomes positive has become increasingly longer. Yesterday we switched him from vancomycin to ampicillin. Exam Narrative: Exam Narrative: Appears comfortable. No acute distress. He is becoming more depressed about his infection. Alert, oriented to self, place, time, situation. Friendly, articulate, cooperative. Lungs clear to auscultation. Heart tones with regular rhythm. And with active bowel sounds, soft, nontender. Extremities with edema. Skin is warm, dry, intact. No focal motor neurologic deficits. Const: Vital Signs, click to edit/add: Vital Signs - 24 hr 05/03/22 19:00 05/03/22 21:53 05/03/22 21:53 Temperature 97.8 F Pulse Rate [Left A pical] 91 91 Respiratory Rate 18 18 18 Blood Pressure [Le ft Arm] 175/82 H Pulse Oximetry 98 98 Oxygen Delivery Me thod Room Air Room Air 05/03/22 23:00 05/04/22 02:59 05/04/22 07:00 Temperature 97.7 F 97.8 F 98.3 F Pulse Rate [Left A pical] 99 105 H 100 Respiratory Rate 20 20 20 Blood Pressure [Le ft Arm] 175/82 H 169/87 H 189/91 H Pulse Oximetry 99 98 95 Oxygen Delivery Me thod Room Air Room Air Room Air 05/04/22 07:00 05/04/22 07:00 05/04/22 11:00 Temperature 98.3 F Pulse Rate [Left A pical] 100 86 Respiratory Rate 20 20 20 Blood Pressure [Le ft Arm] 115/69 Pulse Oximetry 95 95 Oxygen Delivery Me thod Room Air Room Air 05/04/22 15:00 05/04/22 15:00 05/04/22 15:00 Temperature 97.8 F Pulse Rate [Left A pical] 90 90 Respiratory Rate 16 16 16 Blood Pressure [Le ft Arm] 159/79 H Pulse Oximetry 98 98 Oxygen Delivery Me thod Room Air Room Air Documenting provider has reviewed patient's vital signs: yes Labs Labs: Laboratory Results - last 24 hr 05/04/22 05/04/22 05/04/22 06:09 06:09 06:09 WBC 17.58 H RBC 2.99 L Hgb 8.7 L Hct 27.7 L MCV 93 MCH 29 MCHC 31 L Plt Count 347 Neut % (Auto) 75.0 H Lymph % (Auto) 10.7 L [place] % (Auto) 9.7 Eos % (Auto) 2.6 Baso % (Auto) 0.0 Neut # (Auto) 13.20 H Lymph # (Auto) 1.90 [place] # (Auto) 1.70 H Eos # (Auto) 0.50 Baso # (Auto) 0.00 ESR >102 L Sodium 136 Potassium 4.8 Chloride 102 Carbon Dioxide 25 BUN 70 H Creatinine 2.8 H Estimated Creat Clear 24.55 Estimated GFR 24 Glucose 83 Lactate Calcium 7.2 L C-Reactive Protein 6.4 H 05/04/22 06:09 WBC RBC Hgb Hct MCV MCH MCHC Plt Count Neut % (Auto) Lymph % (Auto) [place] % (Auto) Eos % (Auto) Baso % (Auto) Neut # (Auto) Lymph # (Auto) [place] # (Auto) Eos # (Auto) Baso # (Auto) ESR Sodium Potassium Chloride Carbon Dioxide BUN Creatinine Estimated Creat Clear Estimated GFR Glucose Lactate 0.7 Calcium C-Reactive Protein
[2022-05-04] MEDS: 0.9 % SODIUM CHLORIDE 250 ml IV (17:52)
--- NOTE | 2022-05-04 19:06 | PC.NURSE ---
End of Shift: Patient pleasant and cooperative. Patient hypertensive at times, but vitally stable, lungs clear, BS WNL, IV intact. Patient has rated pain 10/10 all shift, scheduled oxy 10 mg given when due. Patient independent in room. Patient is in more discomfort today compared to yesterday. Patient independent in room. Patient had 1 large loose/soft stool, and a couple small/smear BM's. Patient tolerating regular diet and urinating. Blood sugars stable, with patient's own pump.
[2022-05-04] MEDS: DULOXETINE 30 MG CAPSULE DR 60 MG PO (20:08)
[2022-05-04] MEDS: NORTRIPTYLINE HCL 25 MG CAPSULE 100 MG PO (20:09)
[2022-05-04] MEDS: ATORVASTATIN 10 MG TABLET 20 MG PO (20:09)
[2022-05-05] VITALS (7 sets, daily range): BP systolic 102–193; BP diastolic 55–93; PULSE 88–110; RESP 18; TEMP 36.5–36.9; O2SAT 95–100
[2022-05-05] MEDS: AMPICILLIN 2 GM in 0.9 % SODIUM CHLORIDE Mini-bag 100 ML IVPB ×4 (05:45→23:49)
[2022-05-05] MEDS: OMEPRAZOLE 20 MG CAPSULE DR PO ×2 (06:55→16:22)
--- NOTE | 2022-05-05 07:33 | PC.NURSE ---
19-07: pt was able to sleep majority of shift. pt reports pain is tolerable.
[2022-05-05] MEDS: OXYCODONE 5 MG TABLET 10 MG PO ×5 (08:44→20:07)
[2022-05-05] MEDS: carvediloL 25 MG TABLET 37.5 MG PO (08:45)
[2022-05-05] MEDS: SENNOSIDES/DOCUSATE TABLET 2 TAB PO (08:45)
[2022-05-05] MEDS: SODIUM BICARBONATE 650 MG TABLET PO ×2 (08:47→20:08)
[2022-05-05 08:54] LABS: Hematocrit 25.9 % (37.0-53.0); Hemoglobin* 8.3 gm/dL (13.5-17.5); Mean Corpuscular HGB Conc 32 gm/dL (32-36); Mean Corpuscular Hemoglobin 30 pg (26-34); Mean Corpuscular Volume 93 fL (80-100); Red Blood Count 2.78 m/uL (4.30-5.90); White Blood Count* 16.86 K/uL (4.50-11.00)
[2022-05-05 08:55] LABS: Platelet Count* 300 K/uL (140-440); Slide Review Reflex No
[2022-05-05 09:06] LABS: Albumin* 3.3 g/dL (3.3-5.0); Chloride* 102 mmol/L (96-114); Potassium* 4.3 mmol/L (3.6-5.1); Sodium* 132 mmol/L (135-149)
[2022-05-05 09:09] LABS: Blood Urea Nitrogen* 66 mg/dL (7-30); Carbon Dioxide* 19 mmol/L (20-32); Creatinine* 2.6 mg/dL (0.5-1.5); Est. Creatinine Clearance* 26.44; Estimated Glomerular Filt Rate 26 ml/min; Glucose* 91 mg/dL (60-115); Phosphorus* 5.7 mg/dL (2.5-4.5)
[2022-05-05 09:24] LABS: C Reactive Protein* 18.7 mg/dL (0.5-1.0)
[2022-05-05] MEDS: ENOXAPARIN 30 MG/0.3ML INJ SUBCUT (14:14)
--- NOTE | 2022-05-05 18:18 | PC.NURSE ---
VSS AND AFEBRILE. PATIENT PLEASANT AND COOPERATIVE BUT TEARFUL AT TIMES DUE TO CIRCUMSTANCES AND PAIN. PLAN TO TRANSFER TO [facility] WHEN BED IS AVAILABLE.
--- NOTE | 2022-05-05 19:46 | PC.NURSE ---
Spoke with Charly chapa. As of 1949, [facility] is waiting on a transfer out of their floor before [facility] can be transferred. [facility] will call when ready.
[2022-05-05] MEDS: ATORVASTATIN 10 MG TABLET 20 MG PO (20:07)
[2022-05-05] MEDS: NORTRIPTYLINE HCL 25 MG CAPSULE 100 MG PO (20:08)
[2022-05-05] MEDS: DULOXETINE 30 MG CAPSULE DR 60 MG PO (20:08)
[2022-05-05] MEDS: CYCLOBENZAPRINE HCL 10 MG TABLET PO (21:13)
--- NOTE | 2022-05-05 21:53 | PC.NURSE ---
Hypoglycemia 1999 D: Pt requested finger stick for glucose check. Pt's own glucose meter was reading low in the 40's and wanted to check if it was accurate. Pt asymptomatic. Blood glucose reading, 49. A: Apple juice and toast with peanut butter given. Pt also eating some candy family brought in. R: Pt frequently rechecking glucose with own meter and coming up. Blood glucose recheck, 151 at 2110.
[2022-05-06 00:04] VITALS: BP 156/85; PULSE 93; RESP 18; TEMP 37.3; O2SAT 95
[2022-05-06 00:05] VITALS: PULSE 93; RESP 18; O2SAT 95
[2022-05-06] MEDS: CYCLOBENZAPRINE HCL 10 MG TABLET PO (03:48)
[2022-05-06] MEDS: OXYCODONE 5 MG TABLET 10 MG PO ×3 (03:48→09:17)
[2022-05-06 03:50] VITALS: BP 125/70; PULSE 102; RESP 18; TEMP 37.1; O2SAT 94
[2022-05-06] MEDS: AMPICILLIN 2 GM in 0.9 % SODIUM CHLORIDE Mini-bag 100 ML IVPB ×2 (05:27→10:28)
[2022-05-06] MEDS: OMEPRAZOLE 20 MG CAPSULE DR PO (06:34)
--- NOTE | 2022-05-06 06:42 | PC.NURSE ---
End of shift status [id number] Pt alert and oriented. Pleasant and cooperative. Receiving scheduled Oxy, PRN oxy and flexeril for c/o back and leg pain. Hypoglycemic at bedtime, see event note. Continues on IV ampicillin. New IV placed in right hand. Up independently. Pt observed resting intermittently throughout night. Plan to transfer to [place] when bed available.
[2022-05-06 07:00] VITALS: BP 127/71; PULSE 100; RESP 18; TEMP 37; O2SAT 97
[2022-05-06] MEDS: carvediloL 25 MG TABLET 37.5 MG PO (09:19)
[2022-05-06] MEDS: SENNOSIDES/DOCUSATE TABLET 2 TAB PO (09:20)
[2022-05-06] MEDS: SODIUM BICARBONATE 650 MG TABLET PO (09:23)
[2022-05-06] MEDS: 0.9 % SODIUM CHLORIDE 250 ml IV (10:29)
--- NOTE | 2022-05-06 11:54 | PC.NURSE ---
VSS AND AFEBRILE. TOLERATED BREAKFAST WITH NO C/O N/V. REPORT GIVEN TO RN AT [facility]. PATIENT TRANSFERRED VIA [facility].
--- NOTE | 2022-05-06 18:07 | P.IMPN_ITS ---
Progress Note: A&P Assessment and plan (1) Positive blood cultures: Problem details: - + from04/28, 04/30, 05/01 GPC in chains, now identified as Enterococcus faecalis, pansensitive: Ampicillin, daptomycin, linezolid, tigecycline, vancomycin. - Vanco and Rocephin initiated 04/29. Ceftriaxone and vancomycin stopped on 05/03/2022. We started ampicillin 2 g IV Q 6 hours 05/03/2022, dose adjusted for poor renal function. CT scan of spine and TTE obtained 04/29 were negative for obvious infection: Final Impressions: 1. Technically limited exam. 2. Normal LV size, mildly increased wall thickness, normal global systolic function with an estimated EF of 55 - 60%. 3. Right ventricular cavity size is normal, global systolic RV function is normal. 4. Mildly enlarged left atrium. 5. The aortic valve is sclerotic, no stenosis and trivial regurgitation. 6. The mitral valve is thickened, mild to moderate mitral regurgitation. 7. Tricuspid valve is normal. 8. No pericardial effusion. MRI of the cervical spine, thoracic spine, lumbosacral spine obtained on 05/02/2022: Multilevel degenerative disc disease and degenerative joint disease noted. Additionally, a worrisome finding as follows: At L4-5, severe facet arthropathy, with facet joint effusions and reactive edema extending into the L5 pedicles and paraspinal soft tissues. Findings could represent severe reactive/inflammatory arthropathy, with superimposed infectious process not completely excluded. MRI of lumbosacral spine obtained on 05/04/2022: Enhancement involving the bilateral L4-5 and right L5-S1 articulating facets with extension into the right greater than left posterior paraspinal soft tissues. Circumferential epidural enhancement from L4-5 through the sacral canal, likely representing phlegmon/inflammation. Small hypoenhancement within the ventral epidural space at L5 and along the ventral right L4-5 facet joint, concerning for epidural abscesses. There is high-grade thecal sac effacement at L4-5 and to a lesser degree at L5-S1. Suspicious that the epidural abscess might be in consequence of an epidural steroid injection at the L4-L5 level that the patient received on Tuesday04/20/2022. Status: Acute Assessment and Plan: 1. Continue with ampicillin IV 2 g Q 6, dosed for his renal function. 2. I was finally able to reach and discuss the case with the spine surgeon as well as a hospitalist at [facility], [place], [place]. They both agree that the patient warrants additional assessments and considerations and likely interventions beyond what we are able and capable of providing in our [facility]. Dr. Brooke Crocker, the hospitalist, agreed to accept the patient in transfer. The hospital transfer center staff indicated that patient could not be transferred immediately but anticipated a bed to be open within 4-8 hours of the discussion that we held late in the morning. 3. We transferred all images to the [facility] radiology section. All other paperwork that was required for transfer was also completed and packet for the patient. 4. Unfortunately the bed situation at [facility] was so busy that patient was not transferred on 05/05/2022 at all. 5. Reviewed the above with the patient, his , and his daughter. They are all in agreement. (2) UTI (urinary tract infection): Problem details: + Enterococcus Status: Acute (3) GI bleed: Problem details: - new anemia and guaiac-positive stools, + gastritis on EGD - continue PPI - outpatient colonoscopy Status: Acute (4) Lumbar radiculopathy: Problem details: - acute on chronic, s/p recent L4-5 transforaminal right-sided REBA as an outpatient - CT L spine revealed no evidence of diskitis Status: Acute (5) Right shoulder pain: Problem details: - pain and tenderness primarily in the trapezius muscle on the right, simple strain vs PMR vs infection, improving - continue to follow clinically Status: Acute (6) Stage 3 chronic kidney disease: Problem details: - stable, follows with [facility] as outpatient Creatinine normally runs around 3, with creatinine clearance of 22, and eGFR of 22, suggestive of chronic kidney disease stage 4. Status: Acute (7) Diabetic neuropathy: Problem details: - Chronic Status: Acute (8) Type 2 diabetes mellitus: Problem details: - continue insulin pump and continuous glucose monitor Status: Acute (9) Hyponatremia: Problem details: - mild, resolved 04/30 Status: Acute (10) Right knee pain: Problem details: - Probably due to osteoarthritis. Good response to cortisone injection Status: Acute (11) Cognitive impairment: Problem details: - MOCA during stay Status: Acute (12) Unsteady gait: Problem details: - PT recommends rear wheel walker Status: Acute (13) Polymyalgia rheumatica: Problem details: - tentative diagnosis based on patient's symptoms, anemia (although would not cause guaiac + stools), and inflammatory markers. I doubt the patient has polymyalgia rheumatica. - outpatient follow-up to reassess. No symptoms or signs specific to giant cell arteritis Status: Acute Plan 1. Continue with all supportive efforts while awaiting bed availability at [facility]. 2. Will transfer to [facility] when bed becomes available. Time Spent With Patient Total time spent: 60 minutes Subjective Time Seen by Provider: 10:00 Date Seen: 05/05/22 Interval history: Hospital day number 8. 72-year-old male, admitted to the hospital on 04/28/22 for diffuse achiness and concerns for GI bleed given anemia and guaiac-positive stool. EGD performed 04/29 exhibited gastritis. Patient's right knee continues to feel better after steroid injection by Dr. Antonio 04/29. Discharge was planned for 04/29 afternoon; unfortunately, 2/2 of patient's blood cultures returned + for Gram-positive cocci in chains. Patient has known + Urine Culture for Enterococcus. On 04/29 afternoon: -Vancomycin and Rocephin were initiated - TTE obtained without acute findings - CT C/A/P, thoracic spine and lumbar spine obtained without acute findings, later CT cervical spine also without source of infection - MR 05/02/2022 of cervical, thoracic, and lumbo-sacral spine, in addition to demonstrating multilevel DJD and DDD, suggests a possible source of infection at L4-L5 with facet joint effusions and edema extending into the L5 pedicles and paraspinal soft tissues. Discussed with interventional radiologist, Dr. Rudy Nickerson, who indicates that this is not amenable to aspiration efforts. Since we made some modifications in his medication regimen, his pain in his ne ck, shoulders, and back is a little better controlled, albeit not resolved by any stretch of the imagination. He is tolerating increased activities. Otherwise no other focal symptoms. Denies chest heaviness, pressure, tightness, or pain. Denies nausea vomiting. Eating well. Denies diarrhea. Denies constipation. No orthostasis, vertigo, lightheadedness, dizziness, or syncope. No focal motor neurologic deficits, including change in bowel or bladder function, lower extremity weakness. Still has no fever, rigors, diaphoresis. All blood cultures growing out enterococcus faecalis, pansensitive, including to ampicillin, daptomycin, linezolid, tigecycline, and vancomycin. Last positive blood culture was on 05/02/2022. On 05/04/2022 we switched from vancomycin IV to ampicillin IV. Blood cultures obtained since he was switched to ampicillin continue to be negative as of today. Exam Const: Vital Signs, click to edit/add: Vital Signs - 24 hr 05/05/22 20:20 05/05/22 21:10 05/06/22 00:04 Temperature 98 F 99.1 F Pulse Rate [Left A pical] 95 93 Respiratory Rate 18 18 Blood Pressure [Le ft Arm] 193/93 H 126/70 156/85 H Pulse Oximetry 100 95 Oxygen Delivery Me thod Room Air Room Air 05/06/22 00:05 05/06/22 00:05 05/06/22 03:50 Temperature 98.7 F Pulse Rate [Left A pical] 93 102 H Respiratory Rate 18 18 18 Blood Pressure [Le ft Arm] 125/70 Pulse Oximetry 95 94 Oxygen Delivery Me thod Room Air Room Air 05/06/22 07:00 05/06/22 07:00 Temperature 98.6 F Pulse Rate [Left A pical] 100 Respiratory Rate 18 18 Blood Pressure [Le ft Arm] 127/71 Pulse Oximetry 97 97 Oxygen Delivery Me thod Room Air Room Air Labs Labs: Laboratory Results - last 24 hr 05/05/22 08:45 ESR Cancelled Imaging MRI of lumbosacral spine without and with contrast: Attestation: I have reviewed the pertinent imaging results. Radiologist's impression: Impression: Enhancement involving the bilateral L4-5 and right L5-S1 articulating facets with extension into the right greater than left posterior paraspinal soft tissues. Circumferential epidural enhancement from L4-5 through the sacral canal, likely representing phlegmon/inflammation. Small hypoenhancement within the ventral epidural space at L5 and along the ventral right L4-5 facet joint, concerning for epidural abscesses. There is high-grade thecal sac effacement at L4-5 and to a lesser degree at L5-S1.
--- NOTE | 2022-05-06 18:30 | PM.DS1 ---
DS: Providers Provider Time Seen by Provider: 09:00 Date Seen: 05/06/22 Date of admission: 04/29/22 14:43 Primary care physician: Rudy Riddle MD Admitting Clinician: Yon Antonio MD Consults: 04/28/22 17:29 Consult to Physical Therapy [CONS] Routine Comment: Reason(s) for PT Consult:: Evaluate and Treat Any Restrictions?:: No Restrictions 04/28/22 17:34 Consult to Occupational Therapy [CONS] Routine Comment: Reason(s) for OT Consult:: Evaluate and Treat Any Restrictions?:: No Restrictions 04/28/22 21:33 Consult to Physical Therapy [CONS] Routine Comment: Reason(s) for PT Consult:: Balance Assessment Any Restrictions?:: No Restrictions Attending Physician on discharge: Domo Farr MD Date of Discharge: 05/06/22 DS: Diagnosis Discharge Diagnosis (1) 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 space of L2-L5 lumbar spine: Status: Acute Problem details: MRI lumbosacral spine without and with contrast 05/04/2021: Enhancement involving the bilateral L4-5 and right L5-S1 articulating facets with extension into the right greater than left posterior paraspinal soft tissues. Circumferential epidural enhancement from L4-5 through the sacral canal, likely representing phlegmon/inflammation. Small hypoenhancement within the ventral epidural space at L5 and along the ventral right L4-5 facet joint, concerning for epidural abscesses. There is high-grade thecal sac effacement at L4-5 and to a lesser degree at L5-S1. (2) Positive blood cultures: Status: Acute Problem details: - + from04/28, 04/30, 05/01 GPC in chains, now identified as Enterococcus faecalis, pansensitive: Ampicillin, daptomycin, linezolid, tigecycline, vancomycin. - Vanco and Rocephin initiated 04/29. Ceftriaxone and vancomycin stopped on 05/03/2022. We started ampicillin 2 g IV Q 6 hours 05/03/2022, dose adjusted for poor renal function. CT scan of spine and TTE obtained 04/29 were negative for obvious infection: Final Impressions: 1. Technically limited exam. 2. Normal LV size, mildly increased wall thickness, normal global systolic function with an estimated EF of 55 - 60%. 3. Right ventricular cavity size is normal, global systolic RV function is normal. 4. Mildly enlarged left atrium. 5. The aortic valve is sclerotic, no stenosis and trivial regurgitation. 6. The mitral valve is thickened, mild to moderate mitral regurgitation. 7. Tricuspid valve is normal. 8. No pericardial effusion. MRI of the cervical spine, thoracic spine, lumbosacral spine obtained on 05/02/2022: Multilevel degenerative disc disease and degenerative joint disease noted. Additionally, a worrisome finding as follows: At L4-5, severe facet arthropathy, with facet joint effusions and reactive edema extending into the L5 pedicles and paraspinal soft tissues. Findings could represent severe reactive/inflammatory arthropathy, with superimposed infectious process not completely excluded. MRI of lumbosacral spine obtained on 05/04/2022: Enhancement involving the bilateral L4-5 and right L5-S1 articulating facets with extension into the right greater than left posterior paraspinal soft tissues. Circumferential epidural enhancement from L4-5 through the sacral canal, likely representing phlegmon/inflammation. Small hypoenhancement within the ventral epidural space at L5 and along the ventral right L4-5 facet joint, concerning for epidural abscesses. There is high-grade thecal sac effacement at L4-5 and to a lesser degree at L5-S1. Suspicious that the epidural abscess might be in consequence of an epidural steroid injection at the L4-L5 level that the patient received on Tuesday04/20/2022. (3) UTI (urinary tract infection): Status: Acute Problem details: + Enterococcus (4) Unsteady gait: Status: Acute Problem details: - PT recommends rear wheel walker (5) Bacteremia due to Enterococcus: Status: Acute Problem details: Enterococcus faecalis (6) Lumbar radiculopathy: Status: Acute Problem details: - acute on chronic, s/p recent L4-5 transforaminal right-sided REBA as an outpatient - CT L spine revealed no evidence of diskitis (7) Lumbar disc herniation: Status: Acute (8) Spinal stenosis of lumbar region: Status: Acute (9) Cognitive impairment: Status: Acute Problem details: - MOCA during stay (10) Right knee pain: Status: Acute Problem details: - Probably due to osteoarthritis. Good response to cortisone injection (11) Hyponatremia: Status: Acute Problem details: - mild, resolved 04/30 (12) Right shoulder pain: Status: Acute Problem details: - pain and tenderness primarily in the trapezius muscle on the right, simple strain vs PMR vs infection, improving - continue to follow clinically (13) GI bleed: Status: Acute Problem details: - new anemia and guaiac-positive stools, + gastritis on EGD - continue PPI - outpatient colonoscopy (14) Silveira's cyst of knee: Status: Acute (15) Anemia: Status: Acute Problem details: Presumably due to GI bleeding. Needs further evaluation with colonoscopy and response to prednisone treatment for possible polymyalgia rheumatica. (16) Type 2 diabetes mellitus: Status: Acute Problem details: - continue insulin pump and continuous glucose monitor (17) Diabetic neuropathy: Status: Acute Problem details: - Chronic (18) Diabetic gastroparesis: Status: Acute (19) Chronic pain: Status: Acute (20) Gastroesophageal reflux disease: Status: Acute (21) Gout: Status: Acute (22) Hypertension: Status: Acute (23) Hyperlipidemia: Status: Acute (24) Peripheral arterial disease: Status: Acute (25) Restless legs syndrome: Status: Acute (26) Major depressive disorder with single episode: Status: Acute (27) Stage 3 chronic kidney disease: Status: Acute Problem details: - stable, follows with Rudy as outpatient Creatinine normally runs around 3, with creatinine clearance of 22, and eGFR of 22, suggestive of chronic kidney disease stage 4. (28) Transient ischemic attack: Status: Acute DS: Summary Hospital Course Hospital Course: 72-year-old male, admitted to the hospital on 04/28/22 for diffuse achiness and concerns for GI bleed given anemia and guaiac-positive stool. EGD performed 04/29 exhibited gastritis. Patient's right knee continues to feel better after steroid injection by Dr. Antonio 04/29. Discharge was planned for 04/29 afternoon; unfortunately, 2/2 of patient's blood cultures returned + for Gram-positive cocci in chains. Patient has known + Urine Culture for Enterococcus. On 04/29 afternoon: ?-Vancomycin and Rocephin were initiated ?- TTE obtained without acute findings ?- CT C/A/P, thoracic spine and lumbar spine obtained without acute findings, later CT cervical spine also without source of infection ?- MR 05/02/2022 of cervical, thoracic, and lumbo-sacral spine, in addition to demonstrating multilevel DJD and DDD, suggests a possible source of infection at L4-L5 with facet joint effusions and edema extending into the L5 pedicles and paraspinal soft tissues.? Discussed with interventional radiologist, Dr. Rudy Nickerson, who indicates that this is not amenable to aspiration efforts. Since we made some modifications in his medication regimen, his pain in his neck, shoulders, and back is a little better controlled, albeit not resolved by any stretch of the imagination.? He is tolerating increased activities.? Otherwise no other focal symptoms. Denies chest heaviness, pressure, tightness, or pain.? Denies nausea vomiting.? Eating well.? Denies diarrhea.? Denies constipation.? No orthostasis, vertigo, lightheadedness, dizziness, or syncope.? No focal motor neurologic deficits, including change in bowel or bladder function, lower extremity weakness.? Still has no fever, rigors, diaphoresis. All blood cultures growing out enterococcus faecalis, pansensitive, including to ampicillin, daptomycin, linezolid, tigecycline, and vancomycin.? Last positive blood culture was on 05/02/2022.? On 05/04/2022 we switched from vancomycin IV to ampicillin IV.? Blood cultures obtained since he was switched to ampicillin continue to be negative as of today. Status at Discharge Functional status at discharge: uses cane/walker Overall status at discharge: patient is progressing back to baseline Time Spent with Patient Time attestation: Total time spent providing and/or coordinating discharge services: Time spent: Greater than 30 minutes Exam Narrative: Exam Narrative: Appears comfortable.? No acute distress.? He is becoming more depressed about his infection. Alert, oriented to self, place, time, situation.? Friendly, articulate, cooperative.? Lungs clear to auscultation.? Heart tones with regular rhythm.? And with active bowel sounds, soft, nontender.? Extremities with edema. Skin is warm, dry, intact. No focal motor neurologic deficits. Const: Vital Signs, click to edit/add: Vital Signs - 24 hr 05/05/22 20:20 05/05/22 21:10 05/06/22 00:04 Temperature 98 F 99.1 F Pulse Rate [Left A pical] 95 93 Respiratory Rate 18 18 Blood Pressure [Le ft Arm] 193/93 H 126/70 156/85 H Pulse Oximetry 100 95 Oxygen Delivery Me thod Room Air Room Air 05/06/22 00:05 05/06/22 00:05 05/06/22 03:50 Temperature 98.7 F Pulse Rate [Left A pical] 93 102 H Respiratory Rate 18 18 18 Blood Pressure [Le ft Arm] 125/70 Pulse Oximetry 95 94 Oxygen Delivery Me thod Room Air Room Air 05/06/22 07:00 05/06/22 07:00 Temperature 98.6 F Pulse Rate [Left A pical] 100 Respiratory Rate 18 18 Blood Pressure [Le ft Arm] 127/71 Pulse Oximetry 97 97 Oxygen Delivery Me thod Room Air Room Air Documenting provider has reviewed patient's vital signs: yes DS: Data Data Completed and Pending Labs on day of discharge: Labs from last 24 hours 05/05/22 08:45 ESR Cancelled Preliminary micro results at discharge 05/04/22 10:18 Blood Culture - Preliminary Blood NO GROWTH AFTER 48 HOURS 05/05/22 08:45 Blood Culture - Preliminary Blood NO GROWTH AFTER 24 HOURS 05/02/22 06:40 Blood Culture - Preliminary Blood Enterococcus faecalis Imaging MRI lumbosacral spine without and with gadolinium enhancement: Radiologist's impression: 05/04/2022: Enhancement involving the bilateral L4-5 and right L5-S1 articulating facets with extension into the right greater than left posterior paraspinal soft tissues. Circumferential epidural enhancement from L4-5 through the sacral canal, likely representing phlegmon/inflammation. Small hypoenhancement within the ventral epidural space at L5 and along the ventral right L4-5 facet joint, concerning for epidural abscesses. There is high-grade thecal sac effacement at L4-5 and to a lesser degree at L5-S1. MRI without enhancement of the cervical spine, thoracic spine, lumbar spine, sacral spine: Radiologist's impression: 05/02/2022: Cervical: 1. No findings to suggest discitis/osteomyelitis within the cervical spine. 2. At C3-4, moderate spinal canal with moderately severe left and mild right neural foraminal narrowing. Potential impingement of the exiting left C4 nerve. 3. At C4-5, moderate to severe spinal canal with moderately severe right and moderate left neural foraminal narrowing. Potential impingement of the right C5 nerve. 4. At C5-6, moderate spinal canal with moderately severe right and moderate left neural foraminal narrowing. Potential impingement of the right C6 nerve. 5. No abnormal cord signal. Thoracic: 1. No findings to suggest discitis/osteomyelitis within the thoracic spine. 2. Mild multilevel spondylosis without high-grade spinal canal or neural foraminal narrowing. 3. No abnormal cord signal. Lumbar: 1. At L4-5, severe facet arthropathy, with facet joint effusions and reactive edema extending into the L5 pedicles and paraspinal soft tissues. Findings could represent severe reactive/inflammatory arthropathy, with superimposed infectious process not completely excluded. 2. Persistent moderate to severe spinal canal stenosis of the L4-5 level, however with improvement previously noted right facet synovial cyst. Smaller residual cyst encroaches upon the descending right cauda equina nerve roots. 3. At L5-S1, mild spinal canal with severe right and mild left neural foraminal narrowing. Severe facet arthropathy with reactive edema. CT of cervical spine: Radiologist's impression: 05/02/2022: 1. No acute fracture or traumatic subluxation. 2. No CT evidence to suggest discitis/osteomyelitis. 3. Moderate to severe spondylosis, most pronounced at the C5-[address] of thoracic, lumbar, sacral spine: Radiologist's impression: No obvious source of infection. CT Chest/Ab/Pelvis: Radiologist's impression: 1. Copious amounts of retained stool throughout the colon. 2. Distended gallbladder without any pericholecystic inflammatory changes. 3. Distended urinary bladder; the etiology unclear. 4. Negative CT chest, abdomen and pelvis with intravenous contrast otherwise. Discharge Plan Discharge Disposition: [facility] Date of Admission: 04/29/22 14:43 Attending Provider on Discharge: Domo Farr Primary Care Provider: Rudy Riddle Condition: Stable Anticipated Discharge Date/Time: 05/06/22 14:00 Discharge Medications: New ampicillin sodium 2 gram recon soln 2 g IV Q6H Qty: 1 0RF Continued doxepin 25 mg capsule 25 mg PO BID Qty: 60 5RF Fergon 225 mg (27 mg iron) tablet 225 mg PO DAILY amlodipine 5 mg tablet 10 mg PO DAILY Label Comments: TAKE ONE TABLET BY MOUTH EVERY DAY calcium citrate 200 mg (950 mg) tablet 800 mg PO HS Label Comments: TAKE FOUR TABLETS BY MOUTH AT BEDTIME ergocalciferol (vitamin D2) 1,250 mcg (50,000 unit) capsule 1,250 mcg PO .WEEKLY Label Comments: TAKE 1 CAPSULE BY MOUTH ONCE WEEKLY ON TUESDAY furosemide 40 mg tablet 40 mg PO BID pramipexole 1 mg tablet 1 mg PO HS Label Comments: TAKE ONE TABLET BY MOUTH AT BEDTIME insulin aspart U-100 [Novolog U-100 Insulin aspart] 100 unit/mL solution 80 unit subcut USEASDIRECTD Rx Instructions: about 35 units daily per insulin pump per pt report 04/28/22 duloxetine 60 mg capsule,delayed release(DR/EC) 60 mg PO HS lisinopril 40 mg tablet 40 mg PO DAILY atorvastatin 20 mg tablet 20 mg PO HS nortriptyline 50 mg capsule 100 mg PO HS sodium bicarbonate 650 mg tablet 650 mg PO BID aspirin 325 mg tablet 325 mg PO DAILY (DME) Dexcom G6 Sensor Device See Rx Instructions .Route Qty: 3 2RF Rx Instructions: Change every 10 days (DME) Dexcom G6 Transmitter Device See Rx Instructions .Route Qty: 1 5RF Rx Instructions: As directed oxycodone 5 mg tablet 5 - 10 mg PO Q6H PRN (Reason: pain) Qty: 100 0RF omeprazole 40 mg capsule,delayed release(DR/EC) 40 mg PO QDAY Qty: 90 3RF carvedilol 25 mg tablet 25 mg PO DAILY Qty: 180 1RF Rx Instructions: must administer with a meal/food Discontinued minocycline 100 mg capsule 100 mg PO QDAY Qty: 90 1RF Discharge Orders: Discharge Order (Routine); Ordered 05/06/22 Ordered By: Domo Farr Activity Level: Activity as Tolerated Discharge Diet: Diabetic Follow Up Appointments: Rudy Riddle MD [Primary Care Provider] - Forms: [facility] Info Instructions
== END 2022-05-06 11:10 | disposition short-term general hospital (02) | DRG 867 ==
LOC: ED 16:59 → MEDSURG 17:54
PROVIDERS: Family Medicine; Internal Medicine; Admitting Provider Family Medicine; Emergency Provider Family Medicine; PCP Family Medicine; Visit Provider Family Medicine
DX: T80.29XA Infection following other infusion, transfusion and therapeutic injection, initial encounter (principal); G06.1 Intraspinal abscess and granuloma; D62 Acute posthemorrhagic anemia; R78.81 Bacteremia; K92.2 Gastrointestinal hemorrhage, unspecified; E87.1 Hypo-osmolality and hyponatremia; G95.89 Other specified diseases of spinal cord; N39.0 Urinary tract infection, site not specified; N18.4 Chronic kidney disease, stage 4 (severe); B95.2 Enterococcus as the cause of diseases classified elsewhere; M35.3 Polymyalgia rheumatica; M51.26 Other intervertebral disc displacement, lumbar region; M48.061 Spinal stenosis, lumbar region without neurogenic claudication; M71.20 Synovial cyst of popliteal space [Baker], unspecified knee; E11.43 Type 2 diabetes mellitus with diabetic autonomic (poly)neuropathy; K31.84 Gastroparesis; G89.29 Other chronic pain; K21.9 Gastro-esophageal reflux disease without esophagitis; M10.9 Gout, unspecified; E78.5 Hyperlipidemia, unspecified; I73.9 Peripheral vascular disease, unspecified; G25.81 Restless legs syndrome; F32.9 Major depressive disorder, single episode, unspecified; G31.84 Mild cognitive impairment of uncertain or unknown etiology; Z86.73 Personal history of transient ischemic attack (TIA), and cerebral infarction without residual deficits; Z89.412 Acquired absence of left great toe; Z89.421 Acquired absence of other right toe(s); M17.11 Unilateral primary osteoarthritis, right knee; E11.42 Type 2 diabetes mellitus with diabetic polyneuropathy; Z79.4 Long term (current) use of insulin; M25.511 Pain in right shoulder; M25.561 Pain in right knee; I34.0 Nonrheumatic mitral (valve) insufficiency; R26.81 Unsteadiness on feet; M47.894 Other spondylosis, thoracic region; M48.02 Spinal stenosis, cervical region; M47.27 Other spondylosis with radiculopathy, lumbosacral region; M48.07 Spinal stenosis, lumbosacral region; M51.16 Intervertebral disc disorders with radiculopathy, lumbar region; B96.89 Other specified bacterial agents as the cause of diseases classified elsewhere; R20.2 Paresthesia of skin; I12.9 Hypertensive chronic kidney disease with stage 1 through stage 4 chronic kidney disease, or unspecified chronic kidney disease; E11.22 Type 2 diabetes mellitus with diabetic chronic kidney disease; Z72.0 Tobacco use
CPT/HCPCS: 00731; 36415; 43239; 71260; 72125; 72128; 72131; 72141; 72146; 72148; 72149; 73562; 74177; 80048; 80069; 80076; 81003; 81015; 82803; 83605; 84145; 85018; 85025; 85027; 85379; 85610; 85651; 85730; 86140; 87040; 87086; 87186; 88305; 93306; 93971; 94761; 97116; 97161; 97165; 99100; 99285; A9270; G0378; J0290; J0696; J1650; J2704; J3010; J3301; J3370; J3490; J7030; J7050; J7120; J7512; Q9967

== ENCOUNTER 2022-05-06 10:57 | Outpatient (CLI) | payer MEDICARE, BC, SELFPAY | END 2022-05-06 10:58 | disposition home or self-care (01) | LOC: AMB 05-10 10:09 | PROVIDERS: PCP Family Medicine; Visit Provider Family Medicine | DX: G06.1 Intraspinal abscess and granuloma (principal) | CPT/HCPCS: A0425; A0429 ==

== ENCOUNTER 2022-05-20 11:51 | Outpatient (CLI) | payer MEDICARE, BC, SELFPAY ==
[2022-05-20 14:49] LABS: Basophils Absolute Auto 0.02 K/uL (0.00-0.30); Basophils Percent Auto 0.2 % (0.0-3.0); Eosinophils Absolute Auto 0.61 K/uL (0.00-0.50); Eosinophils Percent Auto 6.1 % (0.0-7.0); Hematocrit 26.2 % (37.0-53.0); Hemoglobin* 8.3 gm/dL (13.5-17.5); Immature Granulocytes Abs Auto 0.04 K/uL (0.00-0.30); Immature Granulocytes Pct Auto 0.4 %; Lymphocytes Percent Auto 11.7 % (20-44); Mean Corpuscular HGB Conc 32 gm/dL (32-36); Mean Corpuscular Hemoglobin 29 pg (26-34); Mean Corpuscular Volume 92 fL (80-100); Monocytes Percent Auto 10.1 % (0.0-11.0); Neutrophils Absolute Auto 7.12 K/uL (1.7-7.0); Neutrophils Percent Auto 71.5 % (42.0-72.0); Platelet Count* 481 K/uL (140-440); RDW Coefficient of Variation % 16.3 % (11.5-15.5); Red Blood Count 2.86 m/uL (4.30-5.90); White Blood Count* 9.97 K/uL (4.50-11.00)
[2022-05-20 14:55] LABS: Slide Review Reflex No
[2022-05-20 15:30] LABS: Albumin* 3.1 g/dL (3.3-5.0); Chloride* 105 mmol/L (96-114); Sodium* 136 mmol/L (135-149)
[2022-05-20 15:32] LABS: Bilirubin Total* 0.7 mg/dL (0.1-1.5); Creatinine* 2.8 mg/dL (0.5-1.5); Estimated Glomerular Filt Rate 24 ml/min
[2022-05-20 15:33] LABS: Alanine Aminotransferase* 15 U/L (4-50); Alkaline Phosphatase* 129 U/L (40-150); Aspartate Amino Transferase* 18 U/L (12-35); Blood Urea Nitrogen* 53 mg/dL (7-30); Calcium* 8.2 mg/dL (8.4-10.6); Carbon Dioxide* 17 mmol/L (20-32); Glucose* 98 mg/dL (60-115); Total Protein* 6.6 g/dL (6.0-8.3)
[2022-05-20 15:56] LABS: C Reactive Protein* 15.2 mg/dL (0.5-1.0)
== END 2022-05-20 11:52 | disposition home or self-care (01) ==
LOC: FBOREF 11:52
PROVIDERS: PCP Family Medicine; Visit Provider Family Medicine
DX: G06.1 Intraspinal abscess and granuloma (principal)
CPT/HCPCS: 80053; 85025; 86140

== ENCOUNTER 2022-07-21 13:50 | Outpatient (REF) | payer MEDICARE, BC, SELFPAY ==
[2022-07-21 14:29] LABS: Basophils Absolute Auto 0.03 K/uL (0.00-0.30); Basophils Percent Auto 0.3 % (0.0-3.0); Eosinophils Absolute Auto 0.32 K/uL (0.00-0.50); Hematocrit 21.6 % (37.0-53.0); Immature Granulocytes Abs Auto 0.04 K/uL (0.00-0.30); Immature Granulocytes Pct Auto 0.4 %; Lymphocytes Percent Auto 10.2 % (20-44); Mean Corpuscular HGB Conc 33 gm/dL (32-36); Mean Corpuscular Hemoglobin 31 pg (26-34); Mean Corpuscular Volume 95 fL (80-100); Monocytes Percent Auto 9.4 % (0.0-11.0); Neutrophils Percent Auto 76.7 % (42.0-72.0); Platelet Count* 239 K/uL (140-440); RDW Coefficient of Variation % 16.1 % (11.5-15.5); Red Blood Count 2.27 m/uL (4.30-5.90); White Blood Count* 10.56 K/uL (4.50-11.00)
[2022-07-21 14:49] LABS: C Reactive Protein* 19.9 mg/dL (0.5-1.0)
[2022-07-21 14:59] LABS: Hemoglobin* 7.1 gm/dL (13.5-17.5)
[2022-07-21 16:01] LABS: Erythrocyte SedimentationRate* >102 mm/hr (2-15)
[2022-07-21 21:34] LABS: Slide Review Reflex Yes
[2022-07-21 21:39] LABS: Slide Review Acceptable Review (Acceptable)
== END 2022-07-21 13:51 | disposition home or self-care (01) ==
LOC: NPINS 13:50
PROVIDERS: PCP Family Medicine; Visit Provider Orthopaedic Surgery
DX: M25.532 Pain in left wrist (principal)
CPT/HCPCS: 80048; 84550; 85025; 85651; 86140

== ENCOUNTER 2022-08-17 08:02 | Outpatient (CLI) | payer MEDICARE, BC, SELFPAY ==
--- NOTE | 2022-08-17 08:15 | MR_ITS ---
[address] [address] Phone:?[phone] Fax:?[phone] Referring Physician Information: Laine Gutierrez [address] [facility] [address] Phone:?[phone] Fax:?[phone] Patient:Gilles Walton D.O.B:?1950 Sex:?Male Phone:?[phone] [facility] MRN:?[id number] Exam Date:?08/17/2022 ? EXAM: MRI of the LEFT WRIST, without contrast CLINICAL HISTORY: Left wrist pain and swelling. COMPARISONS: Plain radiographs 07/21/2022. TECHNICAL: MR sequences of the left wrist were obtained: coronals: T1, PD FS, T2 sagittals: PD FS axials: PD, PD FS Sedation: None Contrast: None FINDINGS: Joints and osseous structures: There are erosive changes and edema-like signal throughout the proximal and distal carpal rows, distal radius, and proximal portions of the fourth and fifth metacarpals. There are midcarpal, radiocarpal, and distal radioulnar joint effusion with substantial synovitis. There is proximal migration of the capitate with associated remodeling of the lunate. There is extensive full-thickness chondral loss throughout the radiocarpal compartment. There is ill-defined high-grade tearing of the scapholunate and lunotriquetral ligaments. There is dorsal subluxation of the capitate relative to the lunate. There is a 5 x 4 x 5 mm ossification dorsal to the hamate best seen on axial series 3 image 12 and sagittal series 7 image 9. No dislocation is seen. There are moderate first CMC joint degenerative changes. TFCC: Extensive full-thickness tearing of the triangular fibrocartilage disc. Extensive ill-defined partial tearing of the proximal and distal laminae. Ligaments: Ill-defined high-grade tearing of the scapholunate and lunotriquetral ligaments. Tendons: Flexors: Intact without tendinopathy or tenosynovitis. Extensors: ECU & 6th extensor compartment: Intact without pedro tendinopathy tear or longitudinal splitting. Extensor retinaculum and fibrous subsheath appear intact without demonstrable subsheath injury or nonphysiologic ECU displacement. 1st - 5th extensor compartments: There is marked ill-definition of the extensor pollicis longus tendon between the level of the distal radius and level of the CMC joints. Neurovascular: Median: Unremarkable carpal tunnel without convincing neuritis or intrinsic/extrinsic masses. Ulnar: Unremarkable Guyon's canal without intrinsic/extrinsic masses. Ganglia: No ganglion is identified. Marked soft tissue swelling surrounds the left wrist. IMPRESSION: 1. Radiocarpal, distal radioulnar, and midcarpal joint effusions with substantial synovitis, erosive changes and edema-like signal throughout the carpus, distal radius, and proximal portions of the fourth and fifth metacarpals, and extensive full-thickness chondral loss throughout the radiocarpal compartment are findings concerning for underlying inflammatory or crystalline arthropathy. Proximal migration of the capitate with associated remodeling of the lunate and dorsal subluxation of the capitate relative to the lunate (likely reflecting midcarpal instability) are also noted. 2. Ill-defined high-grade tearing of the scapholunate and lunotriquetral ligaments, extensive full-thickness tearing of the triangular fibrocartilage disc, and ill-defined partial tearing of the proximal and distal laminae of the triangle fibrocartilage, possibly secondary to underlying arthropathy. 3. A 5 x 4 x 5 mm ossification dorsal to the hamate may reflect sequela of old trauma but is of uncertain etiology. 4. Marked ill-definition of the extensor pollicis longus tendon between the level of the distal radius and level of the CMC joints may reflect magic angle artifact rather than tear given lack of tendinous laxity. Correlate with physical examination and clinical signs and symptoms. 5. Moderate first CMC joint osteoarthritis. 6. No evidence of acute fracture or dislocation of the left wrist. RCB Electronically signed on 08/17/2022 11:44:00 AM by Mike Maya M.D.
== END 2022-08-17 08:03 | disposition home or self-care (01) ==
LOC: MRI 08:03
PROVIDERS: PCP Family Medicine; Visit Provider Physician Assistant Surgical
DX: M25.442 Effusion, left hand (principal); M25.532 Pain in left wrist; M18.12 Unilateral primary osteoarthritis of first carpometacarpal joint, left hand; M25.432 Effusion, left wrist; S63.592A Other specified sprain of left wrist, initial encounter
CPT/HCPCS: 73221

== ENCOUNTER 2022-08-25 12:20 | Outpatient (CLI) | payer MEDICARE, BC, SELFPAY ==
--- OUTSIDE RECORDS SUMMARY | 2022-08-27 00:36 | XMS_ITS | Continuity of Care Document ---
Author Name Unknown Organization [facility] Address [address] [address] [place] [address] Phone Care Team Providers Care Nurse Quality Name Role Phone Yao Smith MD Unavailable Unavailabl e Procedures Procedure Date Init Hosp-da E&m Mod Severity 3 Ugi Endo; W/bx 1/mx Colonoscopy Flex; Dx (sep Pro) 22 Subsqt Hosp-da E&m Minr Compl 2 Init Hosp-da E&m Mod Severity 2 Advance Directives Directive Yes / No Effective Date File Name No Information Encounters Encounter Description Practice Location Reason(s) For Visit Diagnoses Date Provider Providers Copied on Encounter [facility], [address] [address], [place], [place], [id number], tel:[phone] [facility] No Information 3 Emiliano Samayoa. [address] [place] [address], [id number] , [place]. tel:[phone] [facility], [address] [address], [place], [place], [id number], [place] tel:[phone] [facility] Anemia, unspecified type 3 Alexi Corona. [address] [place] [address], [id number] , [place]. tel:[phone] Referring Provider: Referral Self. Init Hosp-da E&m Mod Severity [facility], [address] [address], [place], [place], [id number], tel:[phone] [facility] No Information 3 Roshni Grant. [address] [facility], [facility] [address], [place], [id number] , [place]. tel:[phone] Referring Provider: Chas Zuñiga, [address] [place], [address]. [phone] [facility], [address] [address], [place], [place], [id number], [place] [phone] [facility] No Information 2 Brett Gaytan. [address] [facility], [facility] [address], [place], [id number] , [place]. [phone] Referring Provider: Lukas West MD, [address] [place] [address], [address]. [phone] Subsqt Hosp-da E&m Minr Compl [facility], [address] [address], [place], [place], [id number], [place] [phone] [facility] No Information 2 Jessica Rangel. [address] [place] [address], [address], [id number] , [place]. tel:[phone] Referring Provider: Claire Escobar, [address] [place] [address], [address]. [phone] Init Hosp-da E&m Mod Severity [facility], [address] [address], [place], [place], [id number], [place] tel:[phone] [facility] No Information 2 Dayo Shepard. [address] [place] [address], [id number] , [place]. [phone] Referring Provider: Devyn Aguilar, [address] [place] [address], [address]. [phone] Family History Family Member Type Diagnosis Age At Onset No Information Immunizations Vaccine Date Status Comments influenza, high-dose seasona l, quadrivalent, .7mL dose, preservative free Nov-02-2022 administered Note: [facility] bi-direct ional interface ; Source: Other Registry SARS-COV-2 (COVID-19) vaccin e, mRNA, spike protein, LNP, preservative free, 30 mcg/0.3mL dose administered Note: [facility] bi-direct ional interface ; Source: Other Registry SARS-COV-2 (COVID-19) vaccin e, mRNA, spike protein, LNP, preservative free, 30 mcg/0.3mL dose administered Note: [facility] bi-direct ional interface ; Source: Other Registry influenza, seasonal vaccine, quadrivalent, adjuvanted, .5mL dose, preservative free administered Note: [facility] bi-di rectional interface ; Source: Other Registry SARS-COV-2 (COVID-19) vaccin e, mRNA, spike protein, LNP, preservative free, 30 mcg/0.3mL dose administered Note: [facility] bi-direct ional interface ; Source: Other Registry SARS-COV-2 (COVID-19) vaccin e, mRNA, spike protein, LNP, preservative free, 30 mcg/0.3mL dose administered Note: [facility] bi-direct ional interface ; Source: Other Registry influenza, seasonal vaccine, quadrivalent, adjuvanted, .5mL dose, preservative free administered Note: [facility] bi-di rectional interface ; Source: Other Registry influenza, high dose seasona l, preservative-free administered Note: [facility] bi-direct ional interface ; Source: Other Registry Pneumovax 23 administered Note: [facility] bi-d irectional interface ; Source: Other Registry influenza, high dose seasona l, preservative-free administered Note: [facility] bi-direct ional interface ; Source: Other Registry Prevnar 13 administered Note: [facility] bi-d irectional interface ; Source: Other Registry influenza, high dose seasona l, preservative-free administered Note: [facility] bi-direct ional interface ; Source: Other Registry tetanus toxoid, reduced diphtheria toxoid, and acellular pertussis vaccine, adsorbed administered Note: [facility] b i-directional interface ; Source: Other Registry Afluria Qd administered Note: [facility] bi-directional interface ; Source: Other Registry Afluria Qd administered Note: [facility] bi-directional interface ; Source: Other Registry Afluria Qd administered Note: [facility] bi-directional interface ; Source: Other Registry Pneumovax 23 administered Note: [facility] bi-d irectional interface ; Source: Other Registry zoster vaccine, live administered Note: [facility] bi-directional interface ; Source: Other Registry Pneumovax 23 administered Note: [facility] bi-d irectional interface ; Source: Other Registry Influenza, seasonal, injecta ble, preservative free administered Note: [facility] bi-direct ional interface ; Source: Other Registry Influenza, seasonal, injectable administe red Note: [facility] bi- directional interface ; Source: Other Registry tetanus and diphtheria toxoi ds, adsorbed, preservative free, for adult use (5 Lf of tetanus toxoid and 2 Lf of diphtheria toxoid) administered Note: [facility] bi-direct ional interface ; Source: Other Registry Influenza, seasonal, injectable administe red Note: [facility] bi- directional interface ; Source: Other Registry Influenza, seasonal, injectable administe red Note: [facility] bi- directional interface ; Source: Other Registry Influenza, seasonal, injectable administe red Note: [facility] bi- directional interface ; Source: Other Registry Payers Payer name Insurance type Covered libertarian ID Authoriza tion(s) No Information Social History Type Description Quantity Date Captured Comments Sex Male Smoking Status No Information Chief Complaint And Reason For Visit No Information Reason For Referral Reason For Referral No Information Plan Of Treatment Date Type Action Status No Information History Of Present Illness Encounter Date Complaint History Of Prese nt Illness No Information Functional Status Date Functional Assessmen t No Information Instructions Date Instruction Additional Infor mation No Information Assessments Type Assessment Date No Information Patient Care Teams Name Effective Dates (start - stop) Status Members No Information
== END 2022-08-25 12:21 | disposition home or self-care (01) ==
LOC: NFLDREF 08-27 00:32
PROVIDERS: PCP Family Medicine; Referring Provider Family Medicine; Visit Provider Family Medicine
DX: E11.9 Type 2 diabetes mellitus without complications (principal); D64.9 Anemia, unspecified
CPT/HCPCS: 85018

== ENCOUNTER 2022-09-07 08:06 | Outpatient (CLI) | payer MEDICARE, BC, SELFPAY | END 2022-09-07 08:07 | disposition home or self-care (01) | LOC: NFLDREF 16:14 | PROVIDERS: PCP Family Medicine; Referring Provider Family Medicine; Visit Provider Family Medicine | DX: E78.5 Hyperlipidemia, unspecified (principal) | CPT/HCPCS: 80061 ==

== ENCOUNTER 2022-11-19 09:55 | Outpatient (CLI) | payer MEDICARE, BC, SELFPAY ==
--- NOTE | 2022-11-19 10:15 | MR_ITS ---
[address] [address] Phone:?[phone] Fax:?[phone] Referring Physician Information: Laine Gutierrez [address] [facility] [address] Phone:[phone] Fax:[phone] Patient:Gilles Walton D.O.B:?1950 Sex:?Male Phone:?[phone] [facility] MRN:?[id number] Exam Date:?11/19/2022 EXAM: MRI of the RIGHT SHOULDER, without contrast CLINICAL INFORMATION: Male, 72 years old, with right shoulder pain. INDICATION: Evaluate for rotator cuff tear. PRIOR SURGERY: History of shoulder surgery. PLAIN FILMS: Shoulder radiographs dated 11/09/2022. COMPARISONS: No prior MRIs available. TECHNICAL INFORMATION: Using a 1.5T MR scanner and a localizing surface coil: coronal obliques: PD, T2, STIR sagittal obliques: PD, T2 axials: PD, T2 SEDATION: None CONTRAST: None FINDINGS: Bones: Proximal humerus: No fracture or marrow edema/pathology. No humeral Hill-Sachs or reverse Hill-Sachs lesion/impaction or contusion. Glenoid: No fracture or marrow edema/pathology. No osseous Bankart lesion. Rotator cuff and muscles/tendons: Supraspinatus: Mild supraspinatus tendinopathy, without tendon tear or muscle atrophy. Infraspinatus: Mild infraspinatus tendinopathy, without tendon tear or muscle atrophy. Teres minor: No tendinopathy, tear or atrophy. Subscapularis: Mild tendinopathy of the superior distal subscapularis, without tendon tear or muscle atrophy. Deltoid: No strain or atrophy. Coracoacromial arch: Acromion morphology: Status post anterior acromioplasty for subacromial decompression, good result. Acromiohumeral space: The acromiohumeral space is decompressed. Coracohumeral space: The coracohumeral space is within normal limits. Acromioclavicular joint: Joint: Status post AC joint resection for subacromial decompression, with good result. Ligaments: Coracoclavicular ligaments are intact. Bursae: Subacromial-subdeltoid: Minimal subacromial-subdeltoid bursal thickening/bursitis. Subcoracoid: No convincing subcoracoid bursal thickening/bursitis. Biceps tendon: The long head of the biceps tendon is present within the bicipital groove. Moderate tendinopathy and fraying of the intra-articular biceps long head tendon, without split/tear (sagittal PD series 7 images 7-14). Glenohumeral joint: Effusion/cyst: No significant glenohumeral joint effusion. Articular cartilage: Humeral head: Mild-moderate generalized thinning of the articular cartilage throughout the femoral head, with mild inferomedial marginal osteophytosis. Glenoid: Mild generalized thinning of the glenoid articular cartilage, with mild anterior posterior marginal osteophytosis. Loose bodies: No discrete intra-articular body within the joint. Labrum:?Circumferential degeneration and fraying of the labrum, which is of doubtful clinical significance. Inferior glenohumeral ligament/axillary pouch:?Moderate thickening of inferior capsuloligamentous structures (coronal PD series 5 images 11-19). Additionally, there is soft tissue thickening throughout the rotator interval (sagittal PD series 7 images 8-15). IMPRESSION: 1. Moderate tendinopathy and fraying of the intra-articular biceps long head tendon, without split/tear. 2. Mild supraspinatus, infraspinatus, & subscapularis tendinopathy. No rotator cuff tendon tear. 3. Mild osteoarthritis of the glenohumeral joint. 4. Findings in keeping with adhesive capsulitis. 5. Status post AC joint resection and anterior acromioplasty for subacromial decompression, good result. Minimal subacromial subdeltoid bursitis. 6. Circumferential degeneration and fraying of the labrum, which is of doubtful clinical significance. BC Electronically signed on 11/22/2022 7:41:00 AM by Mark Obrien M.D.
== END 2022-11-19 09:56 | disposition home or self-care (01) ==
LOC: MRI 09:56
PROVIDERS: PCP Family Medicine; Visit Provider Physician Assistant Surgical
DX: M25.511 Pain in right shoulder (principal); M75.101 Unspecified rotator cuff tear or rupture of right shoulder, not specified as traumatic; M19.011 Primary osteoarthritis, right shoulder; M75.01 Adhesive capsulitis of right shoulder
CPT/HCPCS: 73221

== ENCOUNTER 2023-02-25 10:00 | Outpatient (RCR) | payer MEDICARE, BC, SELFPAY ==
--- NOTE | 2022-09-15 10:17 | URNOTE ---
Request received for authorization forSal ([id number]). Prior authorization is not required as services are based on medical necessity and follow Medicare guidelines.
[2022-09-17 13:47] LABS: Hemoglobin* 7.8 gm/dL (13.5-17.5)
[2022-09-17 13:48] VITALS: BP 174/84; PULSE 84; RESP 16; TEMP 36.1; O2SAT 98
[2022-10-15 11:00] VITALS: BP 130/76; PULSE 80; RESP 15; TEMP 36.1; O2SAT 94
[2022-10-15 11:11] LABS: Hematocrit 24.8 % (37.0-53.0); Mean Corpuscular HGB Conc 32 gm/dL (32-36); Mean Corpuscular Hemoglobin 31 pg (26-34); Mean Corpuscular Volume 98 fL (80-100); Platelet Count* 258 K/uL (140-440); Red Blood Count 2.53 m/uL (4.30-5.90); White Blood Count* 11.03 K/uL (4.50-11.00)
[2022-10-15 11:13] LABS: Hemoglobin* 7.9 gm/dL (13.5-17.5); Slide Review Reflex No
[2022-10-15 11:23] LABS: Albumin* 2.9 g/dL (3.3-5.0); Chloride* 104 mmol/L (96-114); Sodium* 135 mmol/L (135-149)
[2022-10-15 11:24] LABS: Potassium* 4.3 mmol/L (3.6-5.1)
[2022-10-15 11:26] LABS: Creatinine* 3.8 mg/dL (0.5-1.5); Estimated Glomerular Filt Rate 16 ml/min
[2022-10-15 11:27] LABS: Blood Urea Nitrogen* 66 mg/dL (7-30); Carbon Dioxide* 21 mmol/L (20-32); Glucose* 332 mg/dL (60-115); Uric Acid* 5.5 mg/dL (2.2-8.4)
[2022-10-15 11:28] LABS: Calcium* 7.2 mg/dL (8.4-10.6)
[2022-10-15 11:30] LABS: C Reactive Protein* 2.4 mg/dL (0.5-1.0)
[2022-10-15 11:45] LABS: Iron* 54 ug/dL (49-181)
[2022-10-15 11:54] LABS: Percent Iron Saturation 27 % (20-50); Total Iron Binding Capacity 202 ug/dL (261-462)
--- NOTE | 2022-10-15 13:41 | ONC.NURNOTE ---
denies any s/s bleeding. some bruising of arms. scabbed over areas of shins. states he picks at his skin. todays labs faxed and called to DR. Denney office. pt aware. states voiding well enc po intake with elevated creat.
[2022-11-15 09:10] VITALS: BP 113/70; PULSE 85; RESP 16; TEMP 36.1; O2SAT 96
[2022-11-15 09:31] LABS: Hemoglobin* 8.6 gm/dL (13.5-17.5)
[2022-12-17 10:07] VITALS: BP 101/64; PULSE 84; RESP 18; TEMP 36.6; O2SAT 98
[2023-01-14 10:00] VITALS: BP 143/70; PULSE 87; RESP 16; TEMP 36.1; O2SAT 94
[2023-01-14 10:36] LABS: Hemoglobin* 7.2 gm/dL (13.5-17.5)
--- NOTE | 2023-01-14 12:57 | ONC.NURNOTE ---
Hgb was 7.1 today. per pt it was 8.6 at [facility] [place] 3 days ago. pt asymptomatic . altho states fatiqued. Pt states seen last tuesday for swelling in the rt upper chest below his clavicle at [facility]. no bruising. states resolved. states history of rt shoulder injury with pain. copy of lab and call placed to RN at Dr Denney office at [phone].
--- NOTE | 2023-01-14 15:52 | ONC.NURNOTE ---
Dr. Charmaine Ross covering for Dr. Menon called to enc pt to go to ER if symptoms develope and recheck his blood work next week at scheduled apt. Also Dr. Denney nurse called saying he was happy pt got his medication today. Message left with pts on her cell phone. and to call if questions.
[2023-01-18 13:23] LABS: Basophils Absolute Auto 0.03 K/uL (0.00-0.30); Basophils Percent Auto 0.3 % (0.0-3.0); Eosinophils Absolute Auto 0.58 K/uL (0.00-0.50); Eosinophils Percent Auto 5.5 % (0.0-7.0); Hematocrit 26.1 % (37.0-53.0); Hemoglobin* 8.3 gm/dL (13.5-17.5); Lymphocytes Percent Auto 14.8 % (20-44); Mean Corpuscular HGB Conc 32 gm/dL (32-36); Mean Corpuscular Hemoglobin 31 pg (26-34); Mean Corpuscular Volume 98 fL (80-100); Monocytes Percent Auto 9.9 % (0.0-11.0); Neutrophils Absolute Auto 7.16 K/uL (1.7-7.0); Neutrophils Percent Auto 68.5 % (42.0-72.0); Platelet Count* 285 K/uL (140-440); RDW Coefficient of Variation % 13.6 % (11.5-15.5); Red Blood Count 2.67 m/uL (4.30-5.90); White Blood Count* 10.46 K/uL (4.50-11.00)
[2023-01-18 13:24] LABS: Slide Review Reflex No
[2023-01-18 13:39] VITALS: BP 217/84; PULSE 89; RESP 16; TEMP 36.5; O2SAT 96
[2023-01-18 13:52] VITALS: BP 160/85; PULSE 81; RESP 16; TEMP 36.5; O2SAT 96
[2023-01-18 14:09] VITALS: BP 178/63; PULSE 79; RESP 16; TEMP 36.5; O2SAT 97
[2023-01-18 15:10] VITALS: BP 182/82; PULSE 80; RESP 16; TEMP 36.3; O2SAT 97
[2023-01-18] MEDS: 0.9 % SODIUM CHLORIDE 250 ml IV (16:13)
[2023-01-18 16:20] VITALS: BP 207/98; PULSE 79; RESP 16; TEMP 36.6; O2SAT 96
[2023-01-18] MEDS: FUROSEMIDE 10 MG/ML inj 20 MG IV (16:31)
[2023-01-18 16:49] VITALS: BP 194/105; PULSE 81; RESP 16; TEMP 36.4; O2SAT 97
--- NOTE | 2023-01-18 17:07 | PC.NURSE ---
Dr. Menon notified via telephone about patient's blood pressures of 160-217, currently in 190's. is aware and states as long as the patient is not having chest pain or neurologic symptoms (both of which he denies at this time) patient can discharge to home. [facility] staff aware.
--- NOTE | 2023-01-18 17:21 | PC.NURSE ---
Pt alert and oriented. Pt arrived for blood transfusion. Upon arrival Pt?s blood pressure was low two hundreds- high hundreds. Pt maintained throughout?with hypertensive BP?s during and after transfusion. Pt had no SOB. Dr. Menon consulted as the Physician who ordered transfusion; Dr. Menon indicated that Pt was okay to go home as long as he is asymptomatic. Pt left hospital with .? ?
--- NOTE | 2023-01-19 11:18 | ONC.NURNOTE ---
Med surg called 01/18 evening stating pt has post infusion HTN. Pt does not know if he took his BP meds today. boat detailer contacted Dr. Menon. Tg Escamilla APRN aware.
[2023-01-28 10:15] VITALS: BP 154/83; PULSE 83; RESP 15; TEMP 36.1; O2SAT 994
[2023-01-28 10:17] LABS: Hematocrit 26.4 % (37.0-53.0); Hemoglobin* 8.7 gm/dL (13.5-17.5); Mean Corpuscular HGB Conc 33 gm/dL (32-36); Mean Corpuscular Hemoglobin 30 pg (26-34); Mean Corpuscular Volume 92 fL (80-100); Platelet Count* 274 K/uL (140-440); Red Blood Count 2.87 m/uL (4.30-5.90)
[2023-01-28 10:21] LABS: Slide Review Reflex No
[2023-01-28 10:42] LABS: Albumin* 3.7 g/dL (3.3-5.0); Chloride* 97 mmol/L (96-114); Potassium* 3.5 mmol/L (3.6-5.1); Sodium* 136 mmol/L (135-149)
[2023-01-28 10:45] LABS: Anion Gap 15 mEq/L (7-15); Blood Urea Nitrogen* 86 mg/dL (7-30); Carbon Dioxide* 24 mmol/L (20-32); Creatinine* 5.6 mg/dL (0.5-1.5); Estimated Glomerular Filt Rate 10 ml/min; Glucose* 222 mg/dL (60-115)
[2023-01-28 10:46] LABS: Calcium* 7.3 mg/dL (8.4-10.6)
[2023-01-28 10:54] LABS: Phosphorus* 7.1 mg/dL (2.5-4.5)
[2023-01-28 10:58] LABS: Iron* 89 ug/dL (49-181)
[2023-01-28 11:23] LABS: Total Iron Binding Capacity 245 ug/dL (261-462)
[2023-01-28 11:58] LABS: Percent Iron Saturation 35 % (20-50)
--- NOTE | 2023-01-28 13:56 | ONC.NURNOTE ---
faxed labs to Dr. Denney office. Called abn labs to Dr. Ayala.
[2023-02-11 10:34] LABS: Hemoglobin* 8.9 gm/dL (13.5-17.5)
[2023-02-11 10:56] VITALS: BP 95/59; PULSE 76; RESP 16; TEMP 36.4; O2SAT 91
[2023-02-25 10:22] LABS: Hemoglobin* 8.3 gm/dL (13.5-17.5)
--- NOTE | 2023-03-10 13:28 | ONC.NURNOTE ---
Pt called today stating he would like to cancel appt for aranesp for 03/11/23. Pt states he does not need to reschedule, he will be receiving aranesp at dialysis going forward.
== END 2023-03-16 23:59 | disposition home or self-care (01) ==
LOC: CCIC 10:00
PROVIDERS: Clinical Nurse Specialist; PCP Family Medicine; Referring Provider Family Medicine; Visit Provider Internal Medicine Nephrology
DX: N18.4 Chronic kidney disease, stage 4 (severe) (principal); D63.1 Anemia in chronic kidney disease
CPT/HCPCS: 36415; 36430; 80069; 82728; 83540; 83550; 84550; 85018; 85025; 85027; 86140; 86850; 86900; 86901; 86922; 96372; 99211; J0882; J1940; J7050; P9016

== ENCOUNTER 2023-06-02 12:25 | Outpatient (CLI) | payer MEDICARE, BC, SELFPAY ==
--- OUTSIDE RECORDS SUMMARY | 2023-06-02 12:31 | XMS_ITS ---
Author Name Unknown Organization [facility] Address [address] [place] [address] Care Team Providers Care Umbrella Supervisor Name Role Phone Unavailable Unavailable Unavailable Surgery Details Not on file Complications Check Surgery Details section. Procedure Estimated Blood Loss Check Surgery Details section. Procedure Findings Check Surgery Details section. Procedure Specimens Taken Check Surgery Details section.
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
--- OUTSIDE RECORDS SUMMARY | 2023-06-02 12:31 | XMS_ITS | Encounter Summary ---
Author Name Unknown Organization [facility] Address [address] [place] [address] Care Team Providers Care Saw Tailer Name Role Phone Elsewhere, Pcp Primary Care Provider Unavailabl e Reason for Visit * Reason Comments Med Refill Encounter Details Date Type Department Care Team ([facility] st Contact Info) Description 03/13/2023 Refill Division of Nephrology and Hypertension in [place], [place] [address] [place] [phone] Haseeb Menon Jr., D.O. [address] [place] [phone] Med Refill Social History Tobacco Use Types Packs/Day Years [...] week 03/24/2021 How often do you attend presybeterian or scientology serv ices? Never 03/24/2021 Do you belong to any clubs o r organizations such as presybeterian groups, unions, fraternal or athletic groups, or [...] Answer Date Recorded PHQ-2 Score 0 10/20/2018 [facility] - Occupational Stress Questionnaire Answer Date Recorded [...] Date Recorded Dental: Regular Dentist No 05/15/20 22 Employment Answer Date Recorded Employment status Retired 10/26/2022 Housing Stability Answer Date Recorded What is your living situation today? I have a [facility] place to live 10/26/2022 Education Answer Date Recorded What is the highest level of school you have completed or the highest degree you have received? 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
--- OUTSIDE RECORDS SUMMARY | 2023-06-02 12:31 | XMS_ITS | Encounter Summary ---
Author Name Unknown Organization [facility] Address [address] [place] [address] Care Team Providers Care Patternmaker [employer] Name Role Phone Elsewhere, Pcp Primary Care Provider Unavailabl e Reason for Referral * Outpatient (Routine) - Closed Specialty Diagnoses / Procedures Referred By Robi hong Referred To Contact Diagnoses Follow Up Examination Status Post Surgery Peripheral Arterial Disease (HCC) Procedures US Lower Extremity Arteries Bilateral US Lower Extremity Artery Graft Bilateral Jayjay Pak P.A.-C. [address] [place] [phone] [facility] Referral ID Status Reason Start Date Expiration Date Visits Re quested Visits Authorized [id number] Closed 02/23/2022 02/23/2023 1 1 Reason for Visit * Outpatient (Routine) - Closed Specialty Diagnoses / Procedures Referred By Robi hong Referred To Contact Diagnoses Follow Up Examination Status Post Surgery Peripheral Arterial Disease (HCC) Procedures US Lower Extremity Arteries Bilateral US Lower Extremity Artery Graft Bilateral Jayjay Pak P.A.-C. [address] [place] [phone] [facility] Referral ID Status Reason Start Date Expiration Date Visits Re quested Visits Authorized [id number] Closed 02/23/2022 02/23/2023 1 1 Encounter Details Date Type Department Care Team (Latest Contact Info) Description 03/03/2023 8:21 AM CDT - 03/03/2023 11:59 PM CDT Hospital Encounter Department of Radiology, [facility], in [place], [place] [address] [place] [phone] Jayjay Pak P.A.-C. [address] [place] [phone] Follow Up Examination Status Post Surgery; Peripheral Arterial Disease (HCC) Discharge Disposition: Home or Self Care Social History Tobacco Use Types Packs/Day Years [...] week 03/24/2021 How often do you attend lutheran or temple serv ices? Never 03/24/2021 Do you belong to any clubs o r organizations such as lutheran groups, unions, fraternal or athletic groups, or [...] Answer Date Recorded PHQ-2 Score 0 10/20/2018 [facility] - Occupational Stress [...] your living situation today? I have a [facility] [place] place to live 10/26/2022 Education Answer Date Recorded What is the highest level of school you have completed or the highest degree you have received? 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 0 03/25/2021 allopurinoL (ZYLOPRIM) 100 mg tablet Take 100 mg by mouth daily. 0 amLODIPine (NORVASC) 5 mg tablet Take 1 tablet (5 mg total) by mouth daily. 90 tablet 3 07/05/2022 07/05/[address] tablet Take 81 mg by mouth daily. 0 atorvastatin (LIPITOR) 20 mg tablet Take 1 tablet (20 mg total) by mouth at bedtime. 90 tablet 3 07/25/2019 blood-glucose sensor device 0 11/25/2021 doxepin (SINEquan) 10 mg capsule TAKE ONE CAPSULE BY MOUTH EVERY DAY AT BEDTIME 90 capsule 3 05/28/2021 DULoxetine (CYMBALTA) [address] capsule Take 60 mg by mouth at bedtime. 0 08/16/2016 ergocalciferol (Vitamin D2) 50,000 Unit capsule Take 50,000 Units by mouth once a week. 0 ferrous sulfate 325 mg (65 mg iron) tablet Take 27 mg by mouth daily. States taking 27 mg daily 0 lisinopriL (PRINIVIL,ZESTRIL) 40 mg tablet Take 0.5 tablets (20 mg total) by mouth daily. Patient reports it was decreased by primary physician about 04/2020 per patient report. 0 03/25/2021 minocycline (MINOCIN,DYNACIN) 100 mg capsule TAKE ONE CAPSULE BY MOUTH TWICE A DAY FOR 10 DAYS AND THEN TAKE ONE CAPSULE BY MOUTH EVERY DAY NURSING HOME 0 01/14/2022 nortriptyline (PAMELOR) 50 mg capsule Take 100 mg by mouth at bedtime. 5 12/06/2017 omeprazole (PriLOSEC) [address] capsule Take 40 mg by mouth every evening. 0 09/25/2015 oxyCODONE (ROXICODONE) 5 mg immediate release tabletIndications:Acut e Pain Exception Take 1 tablet (5 mg total) by mouth every 6 (six) hours as needed for severe pain or score 7-10 of 10 Indication: Acute Pain Exception. for pain 6 tablet 0 02/16/2023 pramipexole (MIRAPEX) 0.5 mg tablet Take 0.5 mg by mouth at bedtime. 0 sodium bicarbonate 650 mg tabletIndications:Hype rtension And Chronic Kidney Disease Stage 4 (HCC) DISSOLVE AND TAKE ONE TABLET BY MOUTH TWICE A DAY 180 tablet 3 02/01/2023 02/01/2024 UNABLE TO FIND Insulin pump 0 calcium citrate (CALCITRATE) 950 mg (200 mg calcium) tablet TAKE FOUR TABLETS BY MOUTH AT BEDTIME (DOSE INCREASE) 300 tablet 3 04/28/2022 03/14/2023 furosemide (LASIX) 40 mg tablet Take 1.5 tablets (60 mg total) by mouth 2 (two) times a day. 270 tablet 3 04/06/2022 04/26/2023 sennosides-docusate sodium (SENOKOT-S) 8.6-50 mg per tablet 1 tablet as needed. 0 05/20/2022 03/21/2023 documented as of this encounter Plan of Treatment Not on file documented as of this encounter Procedures Procedure Name Priority Date/Time Associated Diagnosis Comments US LOWER EXTREMITY ARTERIES BILATERAL RAD - Routine (most inpatients and all outpatients) 03/03/2023 10:46 AM CDT Follow Up Examination Status Post Surgery Peripheral Arterial Disease (HCC) documented in this encounter Results * US Lower Extremity Arteries Bilateral (03/03/2023 10:46 AM CDT) Anatomical Region Laterality Modality Lower Extremity, Ultrasound RST LOS, Ultrasound ARZ LOS, Ultrasound FLA LOS, Procedural Bilateral Ultrasound 03/03/2023 11:0 2 AM CDT Impressions 03/03/2023 1:37 PM CDT RIGHT: Widely patent superficial femoral artery stents. LEFT: New stenosis of the [place] proximal superficial femoral artery. Widely patent mid SFA stents. Similar stenosis in the posterior tibial artery. Narrative 03/03/2023 1:37 PM CDT EXAM: US LOWER EXTREMITY ARTERIES BILATERAL Exam performed with color and spectral Doppler analysis. COMPARISON: Arterial ultrasound of the bilateral lower extremities dated 02/23/2022 FINDINGS: RIGHT: ?? Common femoral: Mild atherosclerotic changes. Normal caliber. No stenosis Deep femoral: No stenosis Superficial femoral: Diffuse atherosclerotic changes. No stenosis, including the stented portions Popliteal: Normal caliber. No stenosis LEFT: Common femoral: Mild atherosclerotic changes. Normal caliber. No stenosis Deep femoral: No stenosis Superficial femoral: New elevated Doppler velocities in the [place] proximal vessel (up to 166 cm/sec), consistent with stenosis. Widely patent stents in the mid SFA. Popliteal: Normal caliber. No focal stenosis Tibioperoneal trunk: Normal caliber. No focal stenosis Peroneal: Patent, dampened Doppler waveforms. Posterior tibial: Focally elevated Doppler velocities (up to 369 cm/sec today, previously 314 cm/sec), consistent with stenosis. Dorsalis pedis: Patent, dampened Doppler waveforms. MIMI's being performed in Vascular Lab today. Procedure Note Lawrence Sims M.D. - 03/03/2023 EXAM: US LOWER EXTREMITY ARTERIES BILATERAL Exam performed with color and spectral Doppler analysis. COMPARISON: Arterial ultrasound of the bilateral lower extremities dated1 FINDINGS: RIGHT: Common femoral: Mild atherosclerotic changes. Normal caliber. Nostenosis Deep femoral: No stenosis Superficial femoral: Diffuse atherosclerotic changes. No stenosis,including the stented portions Popliteal: Normal caliber. No stenosis LEFT: Common femoral: Mild atherosclerotic changes. Normal caliber. Nostenosis Deep femoral: No stenosis Superficial femoral: New elevated Doppler velocities in the nativeproximal vessel (up to 166 cm/sec), consistent with stenosis. Widely patent stents in the mid SFA. Popliteal: Normal caliber. No focal stenosis Tibioperoneal trunk: Normal caliber. No focal stenosis Peroneal: Patent, dampened Doppler waveforms. Posterior tibial: Focally elevated Doppler velocities (up to 369 cm/sectoday, previously 314 cm/sec), consistent with stenosis. Dorsalis pedis: Patent, dampened Doppler waveforms. MIMI's being performed in Vascular Lab today. IMPRESSION: RIGHT: Widely patent superficial femoral artery stents. LEFT: New stenosis of the [place] proximal superficial femoral artery.Widely patent mid SFA stents. Similar stenosis in the posterior tibial artery. Jayjay Pak P.A.-C. IMSophie US PROCEDURE S documented in this encounter Visit Diagnoses Diagnosis Follow Up Examination Status Post Surgery Peripheral Arterial Disease (HCC) documented in this encounter Additional Health Concerns Assessment Noted Time PHQ-9 Depression Total Score: 3 01/04/20 18 10:38 AM CDT documented as of this encounter Care Teams Patternmaker [employer] Relationship Specialty Start Date End Date Elsewhere, Pcp PCP - General Family Medicine 01/29/20 documented as of this encounter
--- OUTSIDE RECORDS SUMMARY | 2023-06-02 12:31 | XMS_ITS | Encounter Summary ---
Author Name Unknown Organization [facility] Address [address] [place] [address] Care Team Providers Care Runner Out Name Role Phone Elsewhere, Pcp Primary Care Provider Unavailabl e Reason for Referral * Outpatient (Routine) - Authorized Specialty Diagnoses / Procedures Referred By Robi hong Referred To Contact Sleep Medicine Diagnoses Chronic Kidney Disease Stage 5 Glomerular Filtration Rate Less Than 15 (HCC) 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 (HCC) Sleep Disorder Haseeb Menon Jr., D.O. [address] [place] [address] [facility] Referral ID Status Reason Start Date Expiration Date Visits Requested Visits Authorized [id number] Authorized Specialty Services Required 04/15/2023 04/14/2024 1 1 TAL CUTTER Encounter Details Date Type Department Care Team (Late st Contact Info) Description 04/15/2023 Orders Only Division of Nephrology and Hypertension in [place], [place] [address] [place] [address] Haseeb Menon Jr., D.O. [address] [place] [phone] Chronic Kidney Disease Stage 5 Glomerular Filtration Rate Less Than 15 (HCC) (Primary Dx); 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 (HCC); Sleep Disorder Social History Tobacco Use Types Packs/Day Years [...] week 03/24/2021 How often do you attend confucianism or mu-ism serv ices? Never 03/24/2021 Do you belong to any clubs o r organizations such as confucianism groups, unions, fraternal or athletic groups, or [...] Answer Date Recorded PHQ-2 Score 0 10/20/2018 [facility] - Occupational Stress [...] living situation today? I have a [facility] place to live 10/26/2022 Education Answer Date Recorded What is the highest level of school you have completed or the highest degree you have received? 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/2021 8:13 PM [facility]Y[employer] C[facility]TER Gender Identity Male 08/31/2019 2:40 PM CDT Sexual Orientation Straight 08/31/2019 2: 40 PM CDT documented as of this encounter Plan of Treatment Scheduled Referrals Name Type Priority Associated Diagnoses Orde r Schedule Sleep Medicine - General consult (clinic) Outpatient Referral Routine Chronic Kidney Disease Stage 5 Glomerular Filtration Rate Less Than 15 (HCC) 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 (HCC) Sleep Disorder Expected: 04/15/2023 (Approximate), Expires: 07/14/2024 documented as of this encounter Visit Diagnoses Diagnosis Chronic Kidney Disease Stage 5 Glomerular Filtration Rate Less Than 15 (HCC)- Primary 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 (HCC) Sleep Disorder documented in this encounter Additional Health Concerns Assessment Noted Time PHQ-9 Depression Total Score: 3 01/04/20 18 10:38 AM CDT documented as of this encounter Care Teams Runner Out Relationship Specialty Start Date End Date Elsewhere, Pcp PCP - General Family Medicine 01/29/20 documented as of this encounter
--- OUTSIDE RECORDS SUMMARY | 2023-06-02 12:31 | XMS_ITS | Clinical Summary ---
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 For routine questions regarding patient records, call [phone] during business hours, M-F 8:00 AM - 5:00 PM Central Time. Record requests for emergency care only can be directed to [phone] at any time.[facility] Allergies Active Allergy Reactions Criticality Noted Date Comments Gabapentin Other (see comments) Medium 08/04/2020 Dizzy, memory issue Morphine Itching,Rash Medium 02/14/2012 itchy Pregabalin Anaphylaxis High 02/16/2017 swell Eqrajvk-Cgl-Alv Reductase Inhibitors Myalgia Low 02/13/2014 Medications Medication Sig Dispensed Refills Start Date End Date Status DULoxetine (CYMBALTA) [address] capsule Take 60 mg by mouth at bedtime. 0 08/16/2016 Active nortriptyline (PAMELOR) 50 mg capsule Take 100 mg by mouth at bedtime. 5 12/06/2017 Active omeprazole (PriLOSEC) [address] capsule Take 40 mg by mouth every evening. 0 09/25/2015 Active ferrous sulfate 325 mg (65 mg iron) tablet Take 27 mg by mouth daily. States taking 27 mg daily 0 Active atorvastatin (LIPITOR) 20 mg tablet Take 1 tablet (20 mg total) by mouth at bedtime. 90 tablet 3 07/25/2019 Active pramipexole (MIRAPEX) 0.5 mg tablet Take 0.5 mg by mouth at bedtime. 0 Active lisinopriL (PRINIVIL,ZESTRIL) 40 mg tablet Take 0.5 tablets (20 mg total) by mouth daily. Patient reports it was decreased by primary physician about 04/2020 per patient report. 0 03/25/2021 Active Additional Information Patient taking differently: 40 mgoral Daily, Patient reports it was decreased by primary physician about 04/2020 per patient report., Reported on 03/03/2023 carvediloL (COREG) 25 mg tablet Take 2 tablets (50 mg total) by mouth 2 (two) times a day with meals. 0 03/25/2021 Active acetaminophen (TYLENOL) 500 mg tablet Take 2 tablets (1,000 mg total) by mouth every 8 (eight) hours as needed (neuropathy). 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 90 tablet 3 07/05/2022 07/05/2023 Active allopurinoL (ZYLOPRIM) 100 mg tablet Take 100 mg by mouth daily. 0 Active sodium bicarbonate 650 mg tabletIndications: 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 (HCC) DISSOLVE AND TAKE ONE TABLET BY MOUTH TWICE A DAY 180 tablet 3 02/01/2023 02/01/[address] tablet Take 81 mg by mouth daily. 0 Active ergocalciferol (Vitamin D2) 50,000 Unit capsule Take 50,000 Units by mouth once a week. 0 Active oxyCODONE (ROXICODONE) 5 mg immediate release tabletIndications: Acute Pain Exception Take 1 tablet (5 mg total) by mouth every 6 (six) hours as needed for severe pain or score 7-10 of 10 Indication: Acute Pain Exception. for pain 6 tablet 0 02/16/2023 Active blood-glucose sensor device 0 11/25/2021 Active UNABLE TO FIND Insulin pump 0 Active calcium citrate (CALCITRATE) 950 mg (200 mg calcium) tablet TAKE FOUR TABLETS BY MOUTH AT BEDTIME 300 tablet 3 03/14/2023 Active sennosides-docusat e sodium (SENOKOT-S) 8.6-50 mg per tablet Take 1 tablet by mouth 2 (two) times a day. 180 tablet 3 03/21/2023 03/20/2024 Active furosemide (LASIX) 80 mg tablet Take 2 tablets (160 mg total) by mouth 2 (two) times a day. 360 tablet 3 04/26/2023 Active Active Problems Patient Care Coordination No te Formatting of this note migh t be different from the original. Spouse: Siria Children: Maria M Deluca Lisa, Bethany, 13 grand babies Work: no Problem Noted Date Diagnosed Date Sleep Disorder 04/15/2023 Abrasion Leg Initial Left 03/03/2023 Wound Foot Open Initial Left 03/03/2023 Chronic Kidney Disease Stage 5 Glomerular Filtration Rate Less Than 15 02/11/2023 Gout 09/14/2022 Hyperparathyroidism Secondary 05/27/2021 Diabetes Mellitus Type 2 With Diabetic Nephropat hy 05/27/2021 Follow Up Examination Status Post Surgery 2020 Hyperkalemia 09/29/2020 Acidosis Metabolic Hyperchloremic 09/29/2020 Osteodystrophy Renal 06/16/2020 Anemia Of Chronic Renal Disease 06/16/2020 Acute Respiratory Failure With Hypoxia 0 Pneumonia Community Acquired 05/08/2020 Neuropathy Peripheral 04/21/2018 Restless Leg Syndrome 01/12/2018 Atherosclerosis Of [place] Ar 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 08/08/2017 Hyperlipidemia 07/22/2017 Ulcer Leg Left 04/19/2017 Ulcer Toe Left 04/19/2017 Atherosclerosis Of [place] Ar teries Of Left Leg With Ulceration Of Unspecified Site 04/19/2017 Peripheral Arterial Disease 02/16/2017 Hypertension NOS 02/16/2017 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 09/23/2016 Overview: Hypertension (HTN) And CKD Stage 1-4 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 Insulin Active 09/23/2016 Overview: Shelter Use Of Insulin Active Depression Major Recurrent Moderate 06/22/2016 Overview: Depression Major Recurrent Moderate Diabetes Mellitus Type 2 Wit h Other Circulatory Complication Hyperglycemic 06/22/2016 Overview: DM2 Peripheral Neuropathy Uncontrolled Encounters Date Type Department Care Team Description 04/26/2023 Orders Only Division of Nephrology and Hypertension in [place], [place] [address] [place] [address] Haseeb Menon Jr., D.OFei 04/15/2023 Orders Only Division of Nephrology and Hypertension in [place], [place] [address] [place] [phone] Haseeb Menon Jr., D.O. Chronic Kidney Disease Stage 5 Glomerular Filtration Rate Less Than 15 (HCC) (Primary Dx); 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 (HCC); Sleep Disorder 03/21/2023 Orders Only Division of Nephrology and Hypertension in [place], [place] [address] [place] [phone] Haseeb Menon Jr., D.OFei 03/13/2023 Refill Division of Nephrology and Hypertension in [place], [place] [address] [place] [phone] Haseeb Menon Jr., D.O. Med Refill 03/03/2023 1:00 PM CDT Office Visit Department of Vascular Medicine in [address] [phone] Jayjay Pak PFeiA.-CFei Follow Up Examination Status Post Surgery (Primary Dx); Peripheral Arterial Disease (HCC); Abrasion Leg Initial Left; Wound Foot Open Initial Left 03/03/2023 8:21 AM CDT - 03/03/2023 11:59 PM CDT Hospital Encounter Department of Radiology, [facility], in [place], [place] [address] [place] [address] Jayjay Pak PFeiA.-CFei Follow Up Examination Status Post Surgery; Peripheral Arterial Disease (HCC) Discharge Disposition: Home or Self Care 03/03/2023 8:01 AM CDT - 03/03/2023 8:20 AM CDT Hospital Encounter Department of Vascular Medicine in [place], [place] [address] [place] [address] Jayjay Pak P.A.-C. Follow Up Examination Status Post Surgery; Peripheral Arterial Disease (HCC) Discharge Disposition: Home or Self Care 03/03/2023 8:00 AM CDT Hospital Encounter Department of Radiology, [facility], in [place], [place] [address] [place] [address] Jayjay Pak P.A.-C. Follow Up Examination Status Post Surgery; Peripheral Arterial Disease (HCC) Discharge Disposition: Home or Self Care 03/02/2023 10:30 AM CDT Clinical Communication Virtual Review in [place], [place] [address] [place] [address] Canceled from Last 3 Months Immunizations Name Administration Dates Next Due HZV (ZOSTAVAX) 02/02/2012 Influenza Split 02/10/2017 Influenza TIV (IM) 05/10/2013, 2,05/27/2011,2009,03/13/2008,03/03/2007,04/04/2006 Influenza, Unspecified 02/16/2016,2015,03/17/2015,2013,05/10/2013 PCV13 04/11/2017 PPSV23 04/24/2018,02/14/2012,02/13/2010 Td (Adult), adsorbed 03/24/2007,05/16/1996 Tdap 08/16/2016,08/16/2016 influenza high dose (65 year s or older) (PF) 03/01/2018 Family History Medical History Relation Name Comments No Known Problems Brother 1 Joshua Colon polyps Brother 2 Ramand Diabetes Brother 2 Armand Heart disease Brother 2 Armand Stroke Brother 2 Armand Diabetes Brother 3 Glenn Heart disease Father Hypertension Father Dementia Mother Alecia Diabetes Sister 1 Dianne Breast cancer Sister 2 Katie Prediabetes Sister 3 Elly Relation Name Status Comments Brother 1 Joshua Alive Brother 2 Armand Alive Brother 3 Glenn Alive Father (Age 74) natural ca uses Mother Alecia (Age 92) Sister 1 Dianne Alive Sister 2 Katie Alive unsure of medic al problems Sister 3 Elly Alive Social History Tobacco Use Types Packs/Day Years Used Date Smoking Tobacco: Former Cigarettes 1 35 0 05/16/1983 - 04/2022 Smokeless Tobacco: Never Tobacco Cessation:Counseling Given: Not Answered Alcohol Use Standard Drinks/Week Comments Not Currently [...] How often do you attend confucianism or islam serv ices? Never 03/24/2021 Do you belong [...] Answer Date Recorded PHQ-2 Score 0 10/20/2018 [facility] - Occupational Stress Questionnaire Answer Date Recorded [...] living situation today? I have a [facility] place to live 10/26/2022 Education Answer Date Recorded What is the highest level of school you have completed or the highest degree you have received? 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 Gender Identity Male 08/31/2019 2:40 PM CDT Sexual Orientation Straight 08/31/2019 2: 40 PM CDT Last Filed Vital Signs Vital Sign Reading Time Taken Comments Blood Pressure 125/79 03/03/2023 12:55 PM CDT Pulse 83 03/03/2023 12:55 PM CDT Temperature 36.3 ??C (97.3 ??F) 02/16/2023 3:57 PM CD T Respiratory Rate 14 02/16/2023 4:35 PM CDT Oxygen Saturation 98% 02/16/2023 5:45 PM CDT Inhaled Oxygen Concentration - - Weight 88.5 kg (195 lb 1.7 oz) 03/03/2023 12:53 PM CDT Height 173.8 cm (5' 8.43) 03/03/2023 12:53 PM C DT Body Mass Index 29.3 03/03/2023 12:53 PM CDT Plan of Treatment Health Maintenance Due Date Last Done Comments CT Colonography 1950 Cologuard 1950 Depression Monitoring (PHQ-9) 1950 Zoster Vaccines (1 of 2) 03/29/2012 02/02/2012 Dilated Eye Exam 08/19/2017 08/19/2016 FIT 08/24/2017 08/24/2016 Diabetic Office Visit with F oot Exam 07/22/2018 07/22/2017, 06/22/2016 Diabetes Education 05/01/2019 05/01/2018, 09/23/2016 Lung Cancer Screening 05/07/2021 05/07/2020 COVID-19 Vaccine (2022-2 4 season) 2023 10/27/2021, 04/02/2021, 08/09/2020, Additional history exists Fall Risk Screen (Annual) 05/16/2023 Hemoglobin A1C 05/28/2023 11/25/2022, 042 08/2022, 02/10/2021, Additional history exists Creatinine Level (Kidney Fun ction Test) 02/18/2024 02/17/2023, 02/16/2023, 01/11/2023, Additional history exists Potassium Level 02/18/2024 02/17/2023, 08/2022, 01/11/2023, Additional history exists Sodium Level 02/18/2024 02/17/2023, 08/2022, 01/11/2023, Additional history exists Urine Albumin 02/18/2024 02/17/2023, 08/15, 11/04/2021, Additional history exists Office Visit for Blood Press ure Check / Re-check 03/03/2024 03/03/2023 Lipid (Cholesterol) Screening 02/10/2026, 07/26/2017, 09/20/2016, Additional history exists DTaP,Tdap,and Td Vaccines (3 - Td or Tdap) 08/16/2026 08/16/2016, 08/16/2016, 03/24/2007, Additional history exists Colonoscopy 05/12/2032 05/12/2022, 08/14 (Performed elsewhere) Colorectal Cancer Screening 05/12/2032 Pneumococcal vaccine (65+ years) Completed 04/24/2018, 04/11/2017, 02/14/2012, Additional history exists Abdominal Aortic Aneurysm (A AA) Screen Completed 05/27/2022, 05/27/2022, 03/15/2018, Additional history exists Hepatitis C Screening Completed 02/17/2023 , 02/14/2023, 11/17/2022 Influenza Vaccine Completed 03/16/2023, , 03/24/2021, Additional history exists Medical Devices Implanted Type Area Lung Puller Device Identifier Shelf Expiration Date Model / Serial / Lot Patch Vasc Bovine.08cm X 8cm - Flores [id number] Implanted:Qty: 1 on 04/04/2017 Mesh or Patch Other/Legacy - See Implant Description Synovis Description:Device Manufactu rer - Synovis. Body Location - Other. Vascular. Device Status Text - [id number]. Ocular Lens-10/29/2007 Implanted:10/28 by Nato Dougherty APRN, C.N.P., R.N. (Quantity not on file) Ocular Lens Bilateral: Eye Description:Cataract extract ion and insertion of intraocular lens 06/22/2016 09:27 - NATO DOUGHERTY APRN RN ENDOSCOPY bilateral Conversions - Default Historical Implant Device Implanted:03/04 (Quantity not on file) Ocular Lens Right: Eye Description:Body Location - Eye R. Eye L. Eye R. Device Status Text - OculrLens. Conversions - Default Historical Implant Device Implanted:05/27 (Quantity not on file) Ocular Lens Left: Eye Description:Body Location - Eye L. Device Status Text - OculrLens. Stent [id number] - [id number] Implanted:Qty: 1 on 03/04/2017 Vascular Graft Other/Legacy - See Implant Description [place] Description:Device Manufactu rer - [employer] [place] [employer] Body Location - Other. n/a. Device Status Text - [id number]. Stent Zilver Ptx 6mm X 60mm - [id number] Implanted:Qty: 1 on 04/04/2017 Vascular Stent Other/Legacy - See Implant Description [employer] Description:Device Manufactu rer - [employer]. Body Location - Other. Left. Device Status Text - [id number]. Stent Zilver Ptx 6mm X 80mm - [id number] Implanted:Qty: 1 on 08/31/2017 Vascular Stent Right: Other/Legacy - See Implant Description [employer] / [id number] / Description:Device Manufactu rer - [employer]. Body Location - Right. Device Status Text - [id number]. Stnt Innova Otw [id number] - [id number] Implanted:Qty: 1 on 04/18/2018 by Kemar Velásquez M[facility]B.B.S. at [facility] Vascular Stent [employer] 05/23/2020 [id number] / / [id number] Stnt Innova Otw [id number] - [id number] Implanted:Qty: 1 on 05/11/2019 by Kemar Velásquez M.B.B.S. at [facility] Vascular Stent Left: Leg [employer] 09/05/2020 [id number] / / [id number] Procedures Procedure Name Priority Date/Time Associated Diagnosis Comments LOWER EXTREMITY ARTERIAL (MIMI) - EXERCISE (CLAUDICATION) Routine 03/03/2023 11:37 AM CDT Follow Up Examination Status Post Surgery Peripheral Arterial Disease (HCC) US LOWER EXTREMITY ARTERIES BILATERAL RAD - Routine (most inpatients and all outpatients) 03/03/2023 10:46 AM CDT Follow Up Examination Status Post Surgery Peripheral Arterial Disease (HCC) US AORTA ILIAC ARTERIES BILATERAL WITH DOPPLER RAD - Routine (most inpatients and all outpatients) 03/03/2023 10:46 AM CDT Follow Up Examination Status Post Surgery Peripheral Arterial Disease (HCC) ECG Routine 03/03/2023 7:52 AM CDT Follow Up Examination Status Post Surgery Peripheral Arterial Disease (HCC) from Last 3 Months Results * Lower Extremity Arterial (MIMI) - Exercise (Claudication) (03/03/2023 11:37 AM CDT) Anatomical Region Laterality Modality Other 03/03/2023 10:4 2 AM CDT Narrative 03/03/2023 10:42 AM CDT Right: Doppler Waveforms: ? Abnormal signals starting at or above the popliteal level. ?? Resting Index: ? MIMI (PT)- ??0.80 ?MIMI (DP)- ??0.78 ?TBI- ??Not done due to ulcer. TcPO2: ? Values as noted. ?? Left: Doppler Waveforms: ? Abnormal signals starting at or above the common femoral level. ?? Resting Index: ? MIMI (PT)- ??0.70 ?MIMI (DP)- ??0.59 ?TBI- ??0.36 ?? TcPO2: ? Values as noted. ?? Conclusions: Right: Mild peripheral arterial disease starting [...] 2022, the ankle/brachial indices have decreased bilaterally. Procedure Note Glenn Mclain M.D. - 03/03/2023 Right: Doppler Waveforms: Abnormal signals starting at or above thepopliteal level. Resting Index: MIMI (PT)- 0.80 MIMI (DP)- 0.78TBI- Not done due to ulcer. TcPO2: Values as noted. Left: Doppler Waveforms: Abnormal signals starting at or above thecommon femoral level. Resting Index: MIMI (PT)- 0.70 MIMI (DP)-0.59 TBI- 0.36 TcPO2: Values as noted. Conclusions: Right: Mild peripheral arterial disease starting at theaortoiliac level. TCPO2 is mildly reduced at the calf and proximal foot;moderate to severely reduced at the distal foot.There is improvement inTCPO2 with dependency at all sites. Left: Moderate peripheral arterial disease starting at the aortoiliaclevel. TCPO2 is moderately reduced at the calf; mildly reduced at theproximal foot; moderately reduced at the distal foot.There is improvementin TCPO2 with dependency at all sites. TcpO2 values may be lowered by edema. If clinically appropriate, considerrepeating the study after correctable causes have resolved. Compared tostudy on 23 February 2022, the ankle/brachial indices have decreasedbilaterally. Jayjay Pak P.A.-C. CV VASCULAR PROC EDURES * US Lower Extremity Arteries Bilateral (03/03/2023 10:46 AM CDT) Anatomical Region Laterality Modality Lower Extremity, Ultrasound RST LOS, Ultrasound ARZ LOS, Ultrasound FLA LOS, Procedural Bilateral Ultrasound 03/03/2023 11:0 2 AM CDT Impressions 03/03/2023 1:37 PM CDT RIGHT: Widely patent superficial femoral artery stents. LEFT: New stenosis of the [place] proximal superficial femoral artery. Widely patent mid [...] femoral: New elevated Doppler velocities in the [place] proximal vessel (up to 166 cm/sec), consistent [...] artery stents. LEFT: New stenosis of the [place] proximal superficial femoral artery.Widely patent mid SFA stents. Similar stenosis in the posterior tibial artery. Jayjay ETIENNE US PROCEDURE S * US Aorta Iliac Arteries Bilateral with Doppler (03/03/2023 10:46 AM CDT) Anatomical Region Laterality Modality Abdomen, Pelvis, Ultrasound RST LOS, Ultrasound ARZ LOS, Ultrasound FLA LOS, Procedural Bilateral Ultrasound 03/03/2023 11:0 1 AM CDT Impressions 03/03/2023 12:49 PM CDT 1. 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 2. ??Stenosis of the [place] right external iliac artery, not significantly changed. Narrative 03/03/2023 12:49 PM CDT EXAM: US AORTA ILIAC ARTERIES BILATERAL WITH DOPPLER Exam performed with color and spectral Doppler analysis. COMPARISON: Ultrasound aorta iliac arteries with Doppler dated 02/23/2022 FINDINGS: The distal abdominal aorta is of normal caliber and without stenosis. RIGHT: Again demonstrated are patent metallic stents in the common iliac artery. Doppler evaluation again demonstrates mildly elevated flow velocities in the distal stent, which no longer meet criteria for significant stenosis (240 cm/s today, previously 288 cm/s at a similar level). Also again demonstrated are elevated Doppler velocities in the [place] external iliac artery (273 cm/s today, previously 290 cm/s), consistent with stenosis. Previously demonstrated elevated velocities at the origin of the internal iliac artery are not confidently visualized today. LEFT: Again demonstrated are patent metallic stents in the common iliac artery. Elevated Doppler velocities at the origin of the stent (352 cm/s today, previously 345 cm/s) remain consistent with stenosis. Also again demonstrated are patent metallic stents in the external iliac artery with elevated proximal Doppler velocities (293 cm/s today, previously 331 cm/s), consistent with stenosis. Procedure Note Lawrence Sims M.D. - 03/03/2023 EXAM: US AORTA ILIAC ARTERIES BILATERAL WITH DOPPLER Exam performed with color and spectral Doppler analysis. COMPARISON: Ultrasound aorta iliac arteries with Doppler dated1 FINDINGS: The distal abdominal aorta is of normal caliber and without stenosis. RIGHT: Again demonstrated are patent metallic stents in the common iliacartery. Doppler evaluation again demonstrates mildly elevated flow velocities in the distal stent,which no longer meet criteria for significant stenosis (240 cm/s today, previously 288 cm/s macho similar level). Also again demonstrated are elevated Doppler velocities in the nativeexternal iliac artery (273 cm/s today, previously 290 cm/s), consistent with stenosis. Previouslydemonstrated elevated velocities at the origin of the internal iliac artery are not confidentlyvisualized today. LEFT: Again demonstrated are patent metallic stents in the common iliacartery. Elevated Doppler velocities at the origin of the stent (352 cm/s today, previously 345cm/s) remain consistent with stenosis. Also again demonstrated are patent metallic stents in the external iliacartery with elevated proximal Doppler velocities (293 cm/s today, previously 331 cm/s),consistent with stenosis. IMPRESSION: 1. Patent bilateral iliac artery stents with unchanged stenoses on theright. 2. Stenosis of the [place] right external iliac artery, not significantlychanged. Jayjay Pak P.A.-C. IMG US PROCEDURE S * ECG 12 Lead (03/03/2023 7:52 AM CDT) Ventricular Rate ECG/Min 93 BPM MUSE AR Interval 160 ms MUSE QRSD Interval 134 ms MUSE QT Interval 414 ms MUSE QTC Interval 514 ms MUSE P [place] 64 degrees MUSE R [place] -18 degrees MUSE T Wave [place] 11 degrees MUSE 03/03/2023 7:52 AM CDT 03/03/2023 8:08 AM CDT Impressions MUSE - 03/03/2023 8:08 AM CDT Normal sinus rhythm Right bundle branch block Prolonged QT When compared with ECG of 17-NOV-2022 12:11, No significant change was found Reviewed by JUAREZ Pelletier Narrative Procedure Note Marco A Moeller Jr., M.D. - 03/03/2023 IMPRESSION: Normal sinus rhythm Right bundle branch block Prolonged QT When compared with ECG of 17-NOV-2022 12:11, No significant change was found Reviewed by JUAREZ Pelletier Jayjay Pak P.A.-C. ECG ORDERABLES MUSE NA from Last 3 Months Advance Directives For more information, please contact: [phone] Latest Code Status on File Code Status Date Activated Date Inactivated Comments Full Code 02/16/2023 7:32 AM 02/16/2023 8:15 PM Question Answer Comments Full Code: Discussed Code Status History Code Status Date Activated Date Inactivated Comments Full Code 05/08/2020 11:37 AM 05/10/2020 4:58 PM Question Answer Comments Full Code: Discussed Full Code 05/11/2019 10:07 AM 05/11/2019 10:49 PM Question Answer Comments Full Code: Discussed Full Code 04/18/2018 4:43 PM 04/18/2018 10:04 PM Question Answer Comments Full Code: Discussed Full Code 04/18/2018 9:08 AM 04/18/2018 4:42 PM Question Answer Comments Full Code: Discussed Care Teams Proof Coin Collector Relationship Specialty Start Date End Date Elsewhere, Pcp PCP - General Family Medicine 01/29/20
--- OUTSIDE RECORDS SUMMARY | 2023-06-02 12:31 | XMS_ITS | Encounter Summary ---
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 [address] [place] [address] Social History Tobacco Use Types Packs/Day Years [...] week 03/24/2021 How often do you attend pentecostal or sabianism serv ices? Never 03/24/2021 Do you belong to any clubs o r organizations such as pentecostal groups, unions, fraternal or athletic groups, or [...] Answer Date Recorded PHQ-2 Score 0 10/20/2018 [facility] of Occupat ional Health - Occupational Stress [...] your living situation today? I have a [employer] place to live 10/26/2022 Education Answer Date Recorded What is the highest level of school you have completed or the highest degree you have received? 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
--- OUTSIDE RECORDS SUMMARY | 2023-06-02 12:31 | XMS_ITS | Referral Summary ---
Author Name Unknown Organization [facility] Address [address] [place] [address] Care Team Providers Care Plant Technician Name Role Phone Elsewhere, Pcp Primary Care Provider Unavailabl e Source Comments Patient records contain information from all sites at [facility]. For routine questions regarding patient records, call [phone] during business hours, M-F 8:00 AM - 5:00 PM Central Time. Record requests for emergency care only can be directed to [phone] at any time.[facility] Encounters Date Type Department Care Team Description 04/26/2023 Orders Only Division of Nephrology and Hypertension in [place], [place] [address] [place] [address] Haseeb Menon Jr., Kylah.OFei 04/15/2023 Orders Only Division of Nephrology and Hypertension in [place], [place] [address] [place] [address] Haseeb Menon Jr., D.O. Chronic Kidney Disease Stage 5 Glomerular Filtration Rate Less Than 15 (HCC) (Primary Dx); 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 (HCC); Sleep Disorder 03/21/2023 Orders Only Division of Nephrology and Hypertension in [place], [place] [address] [place] [address] Haseeb Menon Jr., D.O. 03/13/2023 Refill Division of Nephrology and Hypertension in [place], [place] [address] [place] [address] Haseeb Menon Jr., D.O. Med Refill 03/03/2023 8:21 AM CDT - 03/03/2023 11:59 PM CDT Hospital Encounter Department of Radiology, [facility], in [address] [address] Jayjay Pak P.A.-C. Follow Up Examination Status Post Surgery; Peripheral Arterial Disease (HCC) Discharge Disposition: Home or Self Care 03/03/2023 1:00 PM CDT Office Visit Department of Vascular Medicine in [address] [address] Jayjay Pak P.A.-C. Follow Up Examination Status Post Surgery (Primary Dx); Peripheral Arterial Disease (HCC); Abrasion Leg Initial Left; Wound Foot Open Initial Left 03/03/2023 8:01 AM CDT - 03/03/2023 8:20 AM CDT Hospital Encounter Department of Vascular Medicine in [address] [address] Jayjay Pak P.A.-Jennifer Follow Up Examination Status Post Surgery; Peripheral Arterial Disease (HCC) Discharge Disposition: Home or Self Care 03/03/2023 8:00 AM CDT Hospital Encounter Department of Radiology, [facility], in [address] [address] Jayjay Pak P.A.-C. 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 INSTRUCTOR 0 01/14/2022 Active amLODIPine (NORVASC) 5 mg [...] 04/21/2018 Restless Leg Syndrome 01/12/2018 Atherosclerosis Of 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 08/08/2017 Hyperlipidemia 07/22/2017 Ulcer Leg Left 04/19/2017 Ulcer Toe Left 04/19/2017 Atherosclerosis Of [place] Of Left Leg With Ulceration Of Unspecified Site 04/19/2017 Peripheral Arterial Disease 02/16/2017 Hypertension NOS 02/16/2017 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 09/23/2016 Overview: Hypertension (HTN) And CKD Stage 1-4 Mcfp Use Of Insulin Active 09/23/2016 Overview: Mcfp Use Of Insulin Active Depression Major Recurrent Moderate 06/22/2016 Overview: Depression Major Recurrent Moderate Diabetes Mellitus Type 2 Wit h Other Circulatory Complication Hyperglycemic 06/22/2016 Overview: DM2 Peripheral Neuropathy Uncontrolled Immunizations Name Administration Dates Next Due HZV (ZOSTAVAX) 02/02/2012 Influenza Split 02/10/2017 Influenza TIV (IM) 05/10/2013, 2,05/27/2011,2009,03/13/2008,03/03/2007,04/04/2006 Influenza, Unspecified 02/16/2016,2015,03/17/2015,2013,05/10/2013 PCV13 04/11/2017 PPSV23 04/24/2018,02/14/2012,02/13/2010 Td (Adult), adsorbed 03/24/2007,05/16/1996 Tdap 08/16/2016,08/16/2016 influenza high dose (65 year s or older) (PF) 03/01/2018 Social History Tobacco Use Types Packs/Day Years [...] week 03/24/2021 How often do you attend scientology or pentecostalism serv ices? Never 03/24/2021 Do you belong to any clubs o r organizations such as scientology groups, unions, fraternal or athletic groups, or [...] Answer Date Recorded PHQ-2 Score 0 10/20/2018 [facility] of Occupat ional Health - Occupational Stress [...] your living situation today? I have a [facility] place to live 10/26/2022 Education Answer Date Recorded What is the highest level of school you have completed or the highest degree you have received? 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 Body Location - Other. Vascular. Device Status Text - [id number]. Ocular Lens-10/29/2007 Implanted:10/28 by Nato Dougherty, JULIÁN, C.N.P., R.N. 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 Eye L. Eye R. Device Status Text - OculrLens. Conversions - Default Historical Implant Device Implanted:05/27 (Quantity not on file) Ocular Lens Left: Eye Description:Body Location - Eye L. Device Status Text - OculrLens. Stent [id number] [id number] - [id number] Implanted:Qty: 1 on 03/04/2017 Vascular Graft Other/Legacy - See Implant Description [place] Description:Device Manufactu rer - [employer] [place] [employer] Body Location - Other. n/a. Device Status Text - [id number]. Stent Zilver Ptx 6mm X 60mm - Flores [id number] Implanted:Qty: 1 on 04/04/2017 Vascular Stent Other/Legacy - See Implant Description [employer] Description:Device Manufactu rer - Monkey Bizness. Body Location - Other. Left. Device Status Text - [id number]. Stent Zilver Ptx 6mm X 80mm - [id number] Implanted:Qty: 1 on 08/31/2017 Vascular Stent Right: Other/Legacy - See Implant Description [employer] / [id number] / Description:Device Manufactu rer - Monkey Bizness. Body Location - Right. Device Status Text - [id number]. Stnt Innova Otw [id number] - [id number] Implanted:Qty: 1 on 04/18/2018 by Kemar Velásquez M.B.BFeiS. at [facility] Vascular Stent [employer] 05/23/2020 [id number] / / [id number] Stnt Innova Otw [id number] - [id number] Implanted:Qty: 1 on 05/11/2019 by Kemar Velásquez M.B.BFeiS. at [facility] Vascular Stent Left: Leg [employer] 09/05/2020 [id number] / / [id number] Procedures Procedure Name Priority Date/Time Associated Diagnosis [...] artery stents. LEFT: New stenosis of the [place] proximal superficial femoral artery. Widely patent mid [...] femoral: New elevated Doppler velocities in the [place] proximal vessel (up to 166 cm/sec), consistent [...] artery stents. LEFT: New stenosis of the [place] proximal superficial femoral artery.Widely patent mid SFA stents. Similar stenosis in the posterior tibial artery. Authorizing Provider Result Jimmy ETIENNE US PROCEDURE S * US Aorta Iliac Arteries Bilateral with Doppler (03/03/2023 10:46 AM CDT) Anatomical Region Laterality Modality Abdomen, Pelvis, Ultrasound RST LOS, Ultrasound ARZ LOS, Ultrasound FLA LOS, Procedural Bilateral Ultrasound 03/03/2023 11:0 1 AM CDT Impressions 03/03/2023 12:49 PM CDT 1. 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 2. ??Stenosis of the [place] right external iliac artery, not significantly changed. [...] demonstrated are elevated Doppler velocities in the [place] external iliac artery (273 cm/s today, previously [...] stenoses on theright. 2. Stenosis of the [place] right external iliac artery, not significantlychanged. Jayjay Pak P.A.-C. IMG US PROCEDURE S * ECG 12 Lead (03/03/2023 7:52 AM CDT) Ventricular Rate ECG/Min 93 BPM MUSE [place] Interval 160 ms MUSE QRSD Interval 134 ms MUSE QT Interval 414 ms MUSE QTC Interval 514 ms MUSE P [place] 64 degrees MUSE R [place] -18 degrees MUSE T Wave [place] 11 degrees MUSE 03/03/2023 7:52 AM CDT [...] Advance Directives For more information, please contact: [phone] Latest Code Status on File Code Status [...] Answer Comments Full Code: Discussed Care Teams Plant Technician Relationship Specialty Start Date End Date Elsewhere, Pcp PCP - General Family Medicine 01/29/20
--- OUTSIDE RECORDS SUMMARY | 2023-06-02 12:31 | XMS_ITS | Encounter Summary ---
Author Name Unknown Organization [facility] Address [address] [place] [address] Care Team Providers Care Branch Sales And Service Representative Name Role Phone Elsewhere, Pcp Primary Care Provider Unavailabl e Encounter Details Date Type Department Care Team (Late st Contact Info) Description 04/26/2023 Orders Only Division of Nephrology and Hypertension in [place], [place] [address] [place] [address] Haseeb Menon Jr., D.O. [address] [place] [address] Social History Tobacco Use Types Packs/Day Years [...] week 03/24/2021 How often do you attend mormonism or yarsanism serv ices? Never 03/24/2021 Do you belong to any clubs o r organizations such as mormonism groups, unions, fraternal or athletic groups, or [...] Answer Date Recorded PHQ-2 Score 0 10/20/2018 [facility] of Occupat ional Health - Occupational [...] your living situation today? I have a [facility] place to live 10/26/2022 Education Answer Date Recorded What is the highest level of school you have completed or the highest degree you have received? 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
--- OUTSIDE RECORDS SUMMARY | 2023-06-02 12:31 | XMS_ITS | Clinical Summary ---
Author Name Unknown Organization [facility] Address [place], [place] [address] Care Team Providers Care Lean Manufacturing Specialist Name Role Phone Casa Lucia MD Unavailable Unavailable Rudy Riddle MD Unavailable [phone] Rudy Riddle MD Primary Care Provider + Allergies Active Allergy Reactions Criticality Noted Date Comments Gabapentin Other - Describe In Comment Field Medium 08/04/2020 Dizzy, memory issue Dizzy, memory issue Morphine Itching 02/04/2010 After 3 days of use Pregabalin Anaphylaxis,Itching High 02/16/2017 swell swell Mrozwjq-Pgv-Red Reductase Inhibitors Myalgia 02/13/2014 Medications Medication Sig Dispensed Refills Start Date End Date Status atorvastatin (LIPITOR) 20 mg tablet Take 20 mg by mouth at bedtime. 0 10/16/2019 Active doxepin 25 mg capsule Take 50 mg by mouth at bedtime. 0 10/01/2019 Active VITAMIN D2 1,250 mcg (50,000 unit) capsule Take 50,000 Units by mouth once weekly. 0 09/27/2019 Active nortriptyline 50 mg capsule TAKE TWO CAPSULES BY MOUTH AT BEDTIME 0 10/16/2019 Active pramipexole (MIRAPEX) 1 mg tablet Take 1 mg by mouth at bedtime. 0 10/17/2019 Active amLODIPine (NORVASC) 5 mg tablet Take 5 mg by mouth once daily. 0 Active calcium citrate (CITRACAL) 200 mg (950 mg) tablet Take 3,800 mg by mouth at bedtime. 0 Active carvediloL (COREG) 25 mg tablet Take 25 mg by mouth once daily. 0 Active minocycline (MINOCIN) 100 mg tablet Take 100 mg by mouth once daily. 0 Active sodium bicarbonate 650 mg tablet Take 650 mg by mouth two times daily. 0 Active insulin aspart U-100 (NOVOLOG) 100 unit/mL injection USE DIRECTED WITH INSULIN PUMP. Max 32 units/day 0 Active oxyCODONE (ROXICODONE) 5 mg immediate release tabletIndications: Acute exacerbation of chronic low back pain,Chronic back pain, unspecified back location, unspecified back pain laterality Take 5-10mg 4x/day by mouth as needed (at least 4 hrs between doses). Refills from PCP. 1 Tablet 0 05/13/2022 Active acetaminophen (TYLENOL EXTRA STRGTH) 500 mg tabletIndications: Acute exacerbation of chronic low back pain,Chronic back pain, unspecified back location, unspecified back pain laterality Take 2 Tablets (1,000 mg) by mouth four times daily. At least 4hrs between doses. Max acetaminophen dose: 4000mg in 24 hrs. 0 05/13/2022 Active methocarbamoL (ROBAXIN) 750 mg tabletIndications: Acute exacerbation of chronic low back pain,Chronic back pain, unspecified back location, unspecified back pain laterality,Muscle spasm Take 1 Tablet (750 mg) by mouth every 6 hours if needed for Muscle Spasm. 30 Tablet 0 05/13/2022 Active sennosides-docusat e (SENOKOT S) (8.6-50 mg) tabletIndications: constipation Take 1-4 Tablets by mouth 2 times daily if needed for Constipation. While on narcotic pain medications: 2 tablets for 2 doses, continue that dose if stooling. If no BM, increase to 3 tablets for 2 doses. If no BM, increase to 4 tablets. If greater than 2 bowel movements in 24 hours at any point, reduce to 1 tablet then increase as needed again. Hold for loose stools. 50 Tablet 0 05/13/2022 Active lisinopriL (PRINIVIL; ZESTRIL) 40 mg tabletIndications: Proteinuria, unspecified type Take 1 Tablet (40 mg) by mouth once daily. 05/14: DO NOT TAKE UNTIL FOLLOW UP WITH PRIMARY CARE DOCTOR. 0 05/14/2022 Active aspirin chewable 81 mg chewable tabletIndications: Peripheral arterial disease (HC) Chew 1 Tablet (81 mg) by mouth once daily with a meal. 90 Tablet 0 05/15/2022 Active DULoxetine (CYMBALTA) 30 mg Delayed-release capsuleIndications :Major depressive disorder, single episode, in remission (HC) Take 1 Capsule (30 mg) by mouth once daily. 90 Capsule 0 05/14/2022 Active furosemide (LASIX) 40 mg tabletIndications: Lower extremity edema Take 40 mg by mouth every morning. 0 05/14/2022 Active omeprazole (PRILOSEC) 40 mg Delayed-Release capsule Take 40 mg by mouth once daily before a meal. 0 Active oxyCODONE (OXYCONTIN) 20 mg SUSTAINED release tablet Take 20 mg by mouth every 12 hours. 0 Active ampicillin (OMNIPEN-N) 1 gram injectionIndicatio ns:Bacteremia due to Enterococcus,Epidu ral abscess Inject 2 g intravenous every 6 hours. via CADD pump intermittent program 0 05/28/2022 Active ferrous sulfate, 65 mg elemental, tablet Take 325 mg by mouth once daily with a meal. 0 Active Active Problems Problem Noted Date Diagnosed Date Right leg swelling 05/25/2022 Acute exacerbation of chronic low back pain 04/16 Epidural abscess 05/06/2022 Bacteremia due to Enterococcus 05/06/2022 Peripheral arterial disease 05/06/2022 Anemia 05/06/2022 Controlled substance agreement terminated 2016 Overview: Patient termed from the clinic 04/30 Hypertension 08/31/2015 Hyperlipidemia 08/31/2015 Type 2 diabetes mellitus with diabetic polyneuro jackie 02/25/2015 Restless legs syndrome (RLS) 02/02/2012 Issue of repeat prescriptions 12/16/2010 Overview: Diabetic Neuropathy - taking Oxycontin and Percocet TIA (transient ischemic attack) 03/01/2010 CKD (chronic kidney disease) stage 3, GFR 30-59 ml/min 08/17/2009 Diabetic gastroparesis 04/20/2009 GERD (gastroesophageal reflux disease) 9 Major depressive disorder, s zeeshan episode, in partial or unspecified remission 09/18/2007 Diabetic Neuropathy 04/23/2006 Proteinuria 04/23/2006 Erectile Dysfunction 04/23/2006 Gout 04/23/2006 Resolved Problems Problem Noted Date Diagnosed Date Resolved Date Controlled substance agreeme nt signed 5-27-14 ERX 06/21/2014 11/26/2016 Diabetic Neuropathy 01/25/2011 05/27/19 12 Diabetic gastroparesis 01/21/201001/22 Diabetic gastroparesis 01/21/201005/27 Unspecified essential hypertension 04/23/2006 08/31/2015 Other and unspecified hyperlipidemia 04/23/2006 08/31/2015 Depressive disorder, not elsewhere classified 04/23/20 06 09/18/2007 Type 2 Diabetes A1C< 8 05/16/199002/25 Immunizations Name Administration Dates Next Due Influenza Virus, Unspecified 02/10/2017, 02/16/2016,03/17/2015,2013,05/10/2013,05/10/2013,02/02/2012,0 05/27/2011,02/13/2010,03/13/2008, 007,04/04/2006 Influenza, High-dose Inactivated 02/28/2019,02/13,02/10/2017 Influenza, High-dose Quadriv alent Inactivated 03/17/2022 Influenza, IIV3 (Age 6-35 mos) 02/13/2010 Influenza, IIV3 (Age >=3 years) 05/10/20 13,02/02/2012,05/27/2011,2009,03/13/2008,03/03/2007,04/04/2006,1 06/07/2004,03/26/2004 Influenza, IIV4 02/16/2016,03/17/2015,02/13/2014 Influenza, Inactivated AIIV4 (Age 65+ Years) Preserv Free 03/24/2021,02/20/2020 Pneumococcal Poly,23-Valent (Pneumovax) 04/24/2018,02/14/2012,02/13/2010 Pneumococcal conj 13-Valent (Prevnar 13) 04/11/2017 Td (Age >=7 Years) 03/24/2007,05/16/1996 Td, Preservative Free (age > = 7 Years) 03/24/2007 Tdap 08/16/2016 Zoster (Zostavax-ZVL, live) 02/02/2012 Family History Medical History Relation Name Comments Diabetes Brother Diabetes Father Thyroid Disease Mother hypothyroidi sm Thyroid Disease Sister 1 hypothyroidi sm Diabetes Sister 2 Relation Name Status Comments Brother Father (Age 74) Mother Sister 1 Sister 2 Social History Tobacco Use Types Packs/Day Years Used Date Smoking Tobacco: Every Day Cigarettes Smokeless Tobacco: Never Tobacco Cessation:Ready to Q uit: Not Asked; Counseling Given: Not Answered Comments:started again after hospitilization 10/2019 Alcohol Use Standard Drinks/Week Comments No 0 (1 standard drink = 0.6 oz pur e alcohol) Social Connections Answer Date Recorded Frequency of Communication with Friends and Fami ly Not on file 05/25/2022 Sex and Gender Information Value Date Recorded Sex Assigned at Not on file Gender Identity Not on file Sexual Orientation Not on file Obstetrics History Last Filed Vital Signs Vital Sign Reading Time Taken Comments Blood Pressure 162/87 07/21/2022 9:21 PM PARAEDUCATOR Pulse 100 07/21/2022 9:21 PM PARAEDUCATOR Temperature 37.1 ??C (98.8 ??F) 07/21/2022 8:51 PM CS T Respiratory Rate 18 07/21/2022 8:51 PM PARAEDUCATOR Oxygen Saturation 96% 07/21/2022 9:21 PM PARAEDUCATOR Inhaled Oxygen Concentration - - Weight 83.9 kg (185 lb) 07/21/2022 5:35 PM PARAEDUCATOR Height 175.3 cm (5' 9) 07/21/2022 5:35 PM PARAEDUCATOR Body Mass Index 27.32 07/21/2022 5:35 PM PARAEDUCATOR Plan of Treatment Health Maintenance Due Date Last Done Comments COVID-19 vaccine series (#1) 1950 Hepatitis C screening for ag e 18-79 01/30/1970 Zoster (shingles) series for age 50+ (2 of 3) 03/29/2012 02/02/2012 Medicare Wellness for age 65+ 01/30/2017 BMI (ht and wt on same day) for age 18+ 02/15/2017 02/16/2016, 07/22/2015 Depression screening for age 12+ 02/23/2017 02/24/2016, 02/16/2016, 08/19/2015, Additional history exists Lipids for age 45-75 02/15/2021 02/16/2016, 09/10/2014, 10/09/2013, Additional history exists Influenza for age 65+ 01/14/2023 03/17/2022 , 03/24/2021, 02/20/2020, Additional history exists Tetanus booster 08/16/2026 08/16/2016, 01/2007, 03/24/2007, Additional history exists Colonoscopy through age 75 05/12/203205/12, [facility]04/[facility] Tdap Completed 08/16/2016 Pneumococcal series for age 65+ Completed 04/24/2018, 04/11/2017, 02/14/2012, Additional history exists AAA screening age 65-74 Completed 05/27/2022 Goals Goal Patient Goal Type Associated Problems Recent Progress Patient-Stated? Author BLOOD PRESSURE - MAINTAINS BP less than 140/90 Blood Pressure No Rudy Riddle MD Advance Directives Latest Code Status on File Code Status Date Activated Date Inactivated Comments Full Code 05/25/2022 8:45 PM 05/31/2022 3:45 PM Question Answer Comments Code Status Discussion: Reviewed Preferences Code Status History Code Status Date Activated Date Inactivated Comments Full Code 05/07/2022 7:21 AM 05/14/2022 3:45 PM Question Answer Comments Code Status Discussion: Reviewed Preferences Full Code 05/06/2022 1:42 PM 05/07/2022 7:21 AM Question Answer Comments Code Status Discussion: Unable to Assess Preferences, Provider to review later Care Teams Lean Manufacturing Specialist Relationship Specialty Start Date End Date Rudy Riddle MD [address] [place] [address] PCP - General Family Practice 05/25/22 Casa Lucia MD [address] [facility] [address] [place] [address] Ophthalmology Ophthalmology Surgery 12/22/11 Rudy Riddle MD [address] [facility] [place] [address] Family Practice 05/07/22
--- OUTSIDE RECORDS SUMMARY | 2023-06-02 12:32 | XMS_ITS | Encounter Summary ---
Author Name Unknown Organization [facility] Address [address] [place] [address] Care Team Providers Care Electrical Systems Design Engineer Name Role Phone Elsewhere, Pcp Primary Care Provider Unavailabl e Encounter Details Date Type Department Care Team (Late st Contact Info) Description 02/16/2023 Orders Only Division of Endocrinology in [place], [place] [address] [place] [phone] Martina Da Silva, JULIÁN, C.N.P. [address] [place] [address] Social History Tobacco Use Types Packs/Day Years [...] week 03/24/2021 How often do you attend rastafari or yazidi serv ices? Never 03/24/2021 Do you belong to any clubs o r organizations such as rastafari groups, unions, fraternal or athletic groups, or [...] Answer Date Recorded PHQ-2 Score 0 10/20/2018 [facility] - Occupational Stress [...] your living situation today? I have a [facility] place to live 10/26/2022 Education Answer Date Recorded What is the highest level of school you have completed or the highest degree you have received? 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
--- OUTSIDE RECORDS SUMMARY | 2023-06-02 12:32 | XMS_ITS | Encounter Summary ---
Author Name Unknown Organization [facility] Address [address] [place] [address] Care Team Providers Care Piper Helper Name Role Phone Elsewhere, Pcp Primary Care Provider Unavailabl e Reason for Referral * Outpatient (Routine) - Closed Specialty Diagnoses / Procedures Referred By Robi hong Referred To Contact Diagnoses Follow Up Examination Status Post Surgery Peripheral Arterial Disease (HCC) Procedures US Aorta Iliac Arteries Bilateral with Doppler Jayjay Pak P.A.-C. [address] [place] [phone] [facility] Referral ID Status Reason Start Date Expiration Date Visits Re quested Visits Authorized [id number] Closed 02/23/2022 02/23/2023 1 1 Reason for Visit * Outpatient (Routine) - Closed Specialty Diagnoses / Procedures Referred By Robi hong Referred To Contact Diagnoses Follow Up Examination Status Post Surgery Peripheral Arterial Disease (HCC) Procedures US Aorta Iliac Arteries Bilateral with Doppler Jayjay Pak P.A.-C. [address] [place] [phone] [facility] Referral ID Status Reason Start Date Expiration Date Visits Re quested Visits Authorized [id number] Closed 02/23/2022 02/23/2023 1 1 Encounter Details Date Type Department Care Team (Latest Contact Info) Description 03/03/2023 8:00 AM CDT Hospital Encounter Department of Radiology, [facility], in [place], [place] [address] [place] [phone] Jayjay Pak P.A.-C. 200 [place] [phone] Follow Up Examination Status Post Surgery; Peripheral [...] week 03/24/2021 How often do you attend amish or anabaptist serv ices? Never 03/24/2021 Do you belong to any clubs o r organizations such as amish groups, unions, fraternal or athletic groups, or [...] Answer Date Recorded PHQ-2 Score 0 10/20/2018 [facility] - Occupational [...] your living situation today? I have a [facility] place to live 10/26/2022 Education Answer Date Recorded What is the highest level of school you have completed or the highest degree you have received? 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 01/14/2022 nortriptyline (PAMELOR) 50 mg capsule [...] A DAY 180 tablet 3 02/01/2023 02/01/2024 calcium citrate (CALCITRATE) 950 mg (200 mg [...] Name Priority Date/Time Associated Diagnosis Comments US AORTA ILIAC ARTERIES BILATERAL WITH DOPPLER RAD - Routine (most inpatients and all outpatients) 03/03/2023 10:46 AM CDT Follow Up Examination Status Post Surgery Peripheral Arterial Disease (HCC) documented in this encounter Results * US Aorta Iliac Arteries Bilateral with Doppler (03/03/2023 10:46 AM CDT) Anatomical Region Laterality Modality Abdomen, Pelvis, Ultrasound RST LOS, Ultrasound ARZ LOS, Ultrasound FLA LOS, Procedural Bilateral Ultrasound 03/03/2023 11:0 1 AM CDT Impressions 03/03/2023 12:49 PM CDT 1. 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 2. 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 [...] demonstrated are elevated Doppler velocities in the [place] external iliac artery (273 cm/s today, previously [...] cm/s), consistent with stenosis. Procedure Note Lawrence Sism M.D. - 03/03/2023 EXAM: US AORTA ILIAC [...] stenoses on theright. 2. 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 Jayjay ETIENNE US PROCEDURE S documented in this encounter Visit Diagnoses Diagnosis Follow Up Examination Status Post Surgery Peripheral Arterial Disease (HCC) documented in this encounter Additional Health Concerns Assessment Noted Time PHQ-9 Depression Total Score: 3 01/04/20 18 10:38 AM CDT documented as of this encounter Care Teams Piper Helper Relationship Specialty Start Date End Date Elsewhere, Pcp PCP - General Family Medicine 01/29/20 documented as of this encounter
--- OUTSIDE RECORDS SUMMARY | 2023-06-02 12:32 | XMS_ITS | Encounter Summary ---
Author Name Unknown Organization [facility] Address [address] [place] [address] Care Team Providers Care Mattress Weaver Name Role Phone Elsewhere, Pcp Primary Care Provider Unavailabl e Encounter Details Date Type Department Care Team (Late st Contact Info) Description 02/16/2023 10:36 AM CDT - 02/16/2023 12:35 PM CDT Surgery [facility] [address] [place] [address] Tee Celeste M.D., Ph.D. [address] [place] [address] INSERTION Peritoneal DIALYSIS CATHETER Social History Tobacco Use Types Packs/Day Years [...] week 03/24/2021 How often do you attend jewish or mandaen serv ices? Never 03/24/2021 Do you belong to any clubs o r organizations such as jewish groups, unions, fraternal or athletic groups, or [...] Answer Date Recorded PHQ-2 Score 0 10/20/2018 [employer] - Occupational Stress Questionnaire Answer [...] your living situation today? I have a [facility] place to live 10/26/2022 Education Answer Date Recorded What is the highest level of school you have completed or the highest degree you have received? 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 Gender Identity Male 08/31/2019 2:40 PM CDT Sexual Orientation Straight 08/31/2019 2: 40 PM CDT documented as of this encounter Last Filed Vital Signs Vital Sign Reading Time Taken Comments Blood Pressure 163/71 02/16/2023 8:09 AM CDT Pulse - - Temperature 36.5 ??C (97.7 ??F) 02/16/2023 8:09 AM CD T Respiratory Rate 18 02/16/2023 8:09 AM CDT Oxygen Saturation 100% 02/16/2023 8:09 AM CDT Inhaled Oxygen Concentration - - Weight 85 kg (187 lb 6.3 oz) 02/16/2023 8:09 AM CDT Height 167 cm (5' 5.75) 02/16/2023 8:09 AM CDT Body Mass Index 30.48 02/16/2023 8:09 AM CDT documented in this encounter Medications [...] TAKE ONE CAPSULE BY MOUTH EVERY DAY ACTING PROFESSOR 0 01/14/2022 nortriptyline (PAMELOR) 50 mg capsule [...] A DAY 180 tablet 3 02/01/2023 02/01/2024 blood sugar diagnostic (Accu-Chek Guide test strips) strips TEST 6 TIMES DAILY DIRECTED 0 06/16/2021 03/03/2023 calcium citrate (CALCITRATE) 950 mg (200 mg calcium) tablet TAKE FOUR TABLETS BY MOUTH AT BEDTIME (DOSE INCREASE) 300 tablet 3 04/28/2022 03/14/2023 furosemide (LASIX) 40 mg tablet Take 1.5 tablets (60 mg total) by mouth 2 (two) times a day. 270 tablet 3 04/06/2022 04/26/2023 insulin aspart U-100 (NovoLOG Flexpen U-100 Insulin) 100 unit/mL (3 mL) injection Inject 8-15 Units under the skin 3 (three) times a day with meals. (sometimes takes more than 3 times per day depending on what he is eating and activity). 0 03/25/2021 03/03/2023 lancets 6 each daily. 600 each 3 03/07/2019 03/03/2023 pen needle, diabetic 31 gauge x 5/16 needle Inject 1 Injection under the skin daily. Inject 1 injection under the skin 4 times daily 400 each 3 05/14/2019 03/03/2023 sennosides-docusate sodium (SENOKOT-S) 8.6-50 mg per tablet 1 tablet as needed. 0 05/20/2022 03/21/2023 documented as of this encounter OR Notes * Op Note - Tee Celeste M.D., Ph.D. - 02/16/2023 11:18 AM CDT Pre-op Diagnosis Chronic Kidney Disease Stage 5 Glomerular Filtration Rate Less Than 15 (HCC) Post-op Diagnosis Chronic Kidney Disease Stage 5 Glomerular Filtration Rate Less Than 15 (HCC) A airline pilot/first officer actively participated and was necessary for one or more of the following: opening, exposure and visualization during the case, maintaining hemostasis, wound closure resulting in itssafe and expeditious completion. Findings As expected. Complications None Operative Note Narrative PROCEDURE(S) Placement of peritoneal dialysis catheter, right abdomen. DESCRIPTION OF PROCEDURE The patient was taken to the operating room and confirmed to be Onesimo Walton. Following induction of general anesthesia and line placement by the Anesthesia Team, the abdomen was prepped and draped sterilely. A transverse skin incision was made over the right rectus muscle at the level of the umbilicus. Dissection was carried down through the skin incision as well as the panniculus, identifying the anterior rectus fascia. Rectus muscle fibers were , exposing the posterior rectus fascia. In this posterior rectus fascia, a pursestring was placed using 3-0 Prolene suture. At thecenter of the pursestring, the fascia was opened and the peritoneal cavity entered. There were no adhesions between bowel and anterior peritoneum. We then passed a curved single-cuff peritoneal dialysis catheter directed toward the pelvis. The pursestring was secured down around the catheter. We then tested the catheter using 1 L of PD fluid. The fluid easily drained into the abdomen. When the fluid bag was placed on the floor, the fluid slowly returned back from the peritoneal cavity to the bag. The catheter was then tunneled to a site approximately 2 cm below the skin incision. The catheterwas secured to the skin with a nylon suture. The titanium tip was placed on the catheter, and the tubing set was secured to this tip. The anterior rectus fascia was closed with multiple single interrupted 0 Prolene sutures. Efrain's fascia was reapproximated with 3-0 Vicryl and the skin edges closed with a running 4-0 undyed Monocryl subcuticular stitch. The wound was dressed with Steri-Strips and a dry sterile dressing. The patient left the operating room in stable condition with a newly placed peritoneal dialysis catheter. Tee Celeste M.D., Ph.D. * Brief Op Note - Angela Rodriguez M.D. - 02/16/2023 11:18 AM CDT Pre-op Diagnosis Chronic Kidney Disease Stage 5 Glomerular Filtration Rate Less Than 15 (HCC) Post-op Diagnosis Chronic Kidney Disease Stage 5 Glomerular Filtration Rate Less Than 15 (HCC) Findings Peritoneal dialysis catheter placed, exiting from right abdomen. Flowing well after placement. Complications None Angela Rodriguez M.D. documented in this encounter Plan of Treatment Not on file documented as of this encounter Procedures Procedure Name Priority Date/Time Associated Diagnosis Comments GLUCOSE POCT, B Routine 02/16/2023 5:28 PM CDT GLUCOSE POCT, B Routine 02/16/2023 3:15 PM CDT DX ABDOMEN PORTABLE ANTERIOR POSTERIOR 1 VIEW RAD - Routine (most inpatients and all outpatients) 02/16/2023 2:19 PM CDT GLUCOSE POCT, B Routine 02/16/2023 2:15 PM CDT CBC WITHOUT DIFFERENTIAL, B STAT 02/16/2023 1:04 PM CDT PHOSPHORUS (INORGANIC), S STAT 02/16/2023 1:04 PM CDT BASIC METABOLIC PANEL, S/P STAT 02/16/2023 1:04 PM CDT ADULT OXYGEN THERAPY Routine 02/16/2023 12:50 PM CDT GLUCOSE POCT, B Routine 02/16/2023 12:04 PM CDT GLUCOSE POCT, B Routine 02/16/2023 10:23 AM CDT INSERTION DIALYSIS CATHETER 02/16/2023 10:21 AM CDT Chronic Kidney Disease Stage 5 Glomerular Filtration Rate Less Than 15 (HCC) GLUCOSE POCT, B Routine 02/16/2023 8:23 AM CDT documented in this encounter Results * (ABNORMAL) Glucose, POCT (02/16/2023 5:28 PM CDT) Glucose, POCT, B 281(H) 70 - 140 mg/dL 02/16/2023 5:34 PM CDT PCDE Site Capillary 02/16/2023 5:34 PM CDT PCDE Last Intake <1 hour 02/16/2023 5:34 PM CDT PCDE Blood 02/16/2023 5:28 PM CDT 02/16/2023 5:34 PM CDT Unknown Provider LAB POCT ORDERABLES- MANUAL Performing Organization Address [facility] Co de Phone Number POC [employer] [facility] [address] [place] [address], [facility] PCDE [facility] [address] [place] [address] * (ABNORMAL) Glucose, POCT (02/16/2023 3:15 PM CDT) [facility] Glucose, POCT, B 191(H) 70 - 140 mg/dL 02/16/2023 3:17 PM CDT PCDE Site Capillary 02/16/2023 3:17 PM CDT PCDE Blood 02/16/2023 3:15 PM CDT 02/16/2023 3:17 PM CDT Unknown Provider LAB POCT ORDERABLES- MANUAL Performing Organization Address [facility] Co de Phone Number POC [employer] [facility] [address] [place] [address], [facility] PCDE [facility] [address] [place] [address] * DX Abdomen Portable Anterior Posterior 1 View (02/16/2023 2:19 PM CDT) Anatomical Region Laterality Modality Abdomen, Abdominal RST LOS, Abdominal ARZ LOS, Abdominal FLA LOS N/A Digital Radiography 02/16/2023 2:21 PM CDT Impressions 02/16/2023 2:28 PM CDT No comparison. Negative for postoperative purposes. Peritoneal dialysis catheter projects over the pelvis. Nonobstructive bowel gas pattern. Moderate stool burden. Narrative 02/16/2023 2:28 PM CDT EXAM: ??DX ABDOMEN PORTABLE ANTERIOR POSTERIOR 1 VIEW Procedure Note Norman Kay M.D. - 02/16/2023 EXAM: DX ABDOMEN PORTABLE ANTERIOR POSTERIOR 1 VIEW IMPRESSION: No comparison. Negative for postoperative purposes. Peritoneal dialysiscatheter projects over the pelvis. Nonobstructive bowel gas pattern. Moderate stoolburden. Angela Rodriguez M.D. IMG DIAGNOSTIC IMAG ING PROCEDURES * (ABNORMAL) Glucose, POCT (02/16/2023 2:15 PM CDT) Pathologist [facility] Glucose, POCT, B 173(H) 70 - 140 mg/dL 02/16/2023 2:17 PM CDT PCDE Site Capillary 02/16/2023 2:17 PM CDT PCDE Blood 02/16/2023 2:15 PM CDT 02/16/2023 2:17 PM CDT Unknown Provider LAB POCT ORDERABLES- MANUAL Performing Organization Address [facility]/ZIP Co de Phone Number POC [employer] [facility] [address] PCDE [facility] [address] [place] [address] * (ABNORMAL) Phosphorus Inorganic (02/16/2023 1:04 PM CDT) [facility] Phosphorus (Inorganic), S 6.2(H) 2.5 - 4.5 mg/dL 02/16/2023 1:58 PM CDT DTL Blood (Blood, Venous) 02/16/2023 1:04 PM CDT 02/16/2023 1:41 PM CDT Uriel Lin M.D. LAB BLOOD ADD-ON Performing Organization Address City[facility]/ZIP Co de Phone Number [facility] [address] [place] [address], [facility] [address] [place] [address] * (ABNORMAL) CBC without Differential (02/16/2023 1:04 PM CDT) [facility] Hemoglobin 8.7(L) 13.2 - 16.6 g/dL 02/16/2023 1:16 PM CDT [facility] Hematocrit 27.8(L) 38.3 - 48.6 % 02/16/2023 1:16 PM CDT [facility] Erythrocytes 2.91(L) 4.35 - 5.65 x10(12)/L 02/16/2023 1:16 PM CDT [facility] MCV 95.5 78.2 - 97.9 fL 02/16/2023 1:16 PM CDT [facility] RBC Distrib Width 14.3 11.8 - 14.5 % 02/16/2023 1:16 PM CDT [facility] Platelet Count 263 135 - 317 x10(9)/L 02/16/2023 1:16 PM CDT [facility] Leukocytes 7.0 3.4 - 9.6 x10(9)/L 02/16/2023 1:16 PM CDT [facility] Blood (Blood, Venous) 02/16/2023 1:04 PM CDT 02/16/2023 1:13 PM CDT Uriel Lin M.D. LAB BLOOD ADD-ON [facility] [address] [place] [address], [facility] M[facility] [address] [place] [address] * (ABNORMAL) Basic Metabolic Panel (02/16/2023 1:04 PM CDT) Potassium, P 3.6 3.6 - 5.2 mmol/L 02/16/2023 1:36 PM CDT [facility] Sodium, P 139 135 - 145 mmol/L 02/16/2023 1:36 PM CDT [facility] Chloride, P 98 98 - 107 mmol/L 02/16/2023 1:36 PM CDT [facility] Bicarbonate, P 27 22 - 29 mmol/L 02/16/2023 1:36 PM CDT [facility] Anion Gap, P 14 7 - 15 02/16/2023 1:36 PM CDT [facility] BUN (Blood Urea Nitrogen), P 74(H) 8 - 24 mg/dL 02/16/2023 1:36 PM CDT [facility] Creatinine 4.92(H) 0.74 - 1.35 mg/dL 02/16/2023 1:36 PM CDT [facility] Estimated GFR (eGFR) <15(L) >=60 mL/min/BSA 02/16/2023 1:36 PM CDT [facility] Comment: Estimated GFR calculated using the 2020 CKD_EPI creatinine equation. Calcium, Total, P 7.3(L) 8.8 - 10.2 mg/dL 02/16/2023 1:36 PM CDT [facility] Glucose, P 138 70 - 140 mg/dL 02/16/2023 1:36 PM CDT [facility] Blood (Blood, Venous) 02/16/2023 1:04 PM CDT 02/16/2023 1:13 PM CDT Uriel Lin M.D. LAB BLOOD ADD-ON [facility] [address] [place] [address], [facility] METH [facility] [address] [place] [address] * Glucose, POCT (02/16/2023 12:04 PM CDT) Glucose, POCT, B 108 70 - 140 mg/dL 02/16/2023 12:07 PM CDT PCDE Site Capillary 02/16/2023 12:07 PM CDT PCDE Blood 02/16/2023 12:0 4 PM CDT 02/16/2023 12:07 PM CDT Unknown Provider LAB POCT ORDERABLES- MANUAL [facility] [address] [place] [address], [facility] PCDE [facility] [address] [place] [address] * Glucose, POCT (02/16/2023 10:23 AM CDT) Glucose, POCT, B 112 70 - 140 mg/dL 02/16/2023 10:33 AM CDT PCDE Site Capillary 02/16/2023 10:33 AM CDT PCDE Blood 02/16/2023 10:2 3 AM CDT 02/16/2023 10:33 AM CDT Unknown Provider LAB POCT ORDERABLES- MANUAL [facility] [address] [place] [address], [facility] PCDE [facility] [address] [place] [address] * Glucose, POCT (02/16/2023 8:23 AM CDT) Glucose, POCT, B 106 70 - 140 mg/dL 02/16/2023 8:24 AM CDT PCDE Blood 02/16/2023 8:23 AM CDT 02/16/2023 8:25 AM CDT Unknown Provider LAB POCT ORDERABLES- MANUAL Performing Organization Address [facility] Co de Phone Number POC [facility] [facility] [address] [place] [address], [facility] PCDE [facility] [address] [place] [address] documented in this encounter Visit Diagnoses Diagnosis Chronic Kidney Disease Stage 5 Glomerular Filtration Rate Less Than 15 (HCC)- Primary Chronic Kidney Disease Stage 5 Glomerular Filtration Rate Less Than 15 (HCC) documented in this encounter Admitting Diagnoses Diagnosis Chronic Kidney Disease Stage 5 Glomerular Filtration Rate Less Than 15 (HCC) documented in this encounter Administered Medications Inactive Administered Medications - up to 3 most recent administrations Medication Order MAR Action Action Date Dose Rate Site acetaminophen tablet 1,000 mg (TYLENOL) 1,000 mg, oral, Once as needed, other, If patient has not received in the previous 6 hours, Starting on Tue02/16/23 at 1250, For 1 dose, PACU (only), Oral unless RASS less than -1 or nausea/vomiting. Do not use if given in last 6 hours Given 02/16/2023 1:12 PM CDT 1,000 mg fentaNYL injection 25 mcg (SUBLIMAZE) 25 mcg, intravenous, Every 2 min PRN, For pain 4 or greater (maximum 100 mcg). If max dose of Fentanyl is reached and if pain is greater than 4, discontinue Fentanyl: give Hydromorphone, Starting on Tue02/16/23 at 1250, PACU (only) Given 02/16/2023 2:27 PM CDT 25 mcg Given 02/16/2023 1:35 PM CDT 25 mcg Given 02/16/2023 1:34 PM CDT 25 mcg insulin aspart U-100 injection 2 Units (NovoLOG FlexPen) 2 Units, subcutaneous, Once, On Tue02/16/23 at 1515, For 1 dose, PACU & Post-Op Given 02/16/2023 3:26 PM CDT 2 Units Left Lower Abdomen insulin regular 1 Unit/mL in NaCl 0.9% 100 mL infusion 0-25 Units/hr (0-25 mL/hr), intravenous, Continuous Infusion: Per Instructions PRN, Initiate infusion for glucose greater than 150 mg/dL, Starting on Tue02/16/23 at 1019, NOTIFY PRESCRIBER IF: Glucose is not within target range after 4 hours of IV insulin infusion. Patient starts eating. (50% of clear liquid diet or more) Patient starts bolus tube feedings. The insulin infusion has been either 0 to 1 unit/hour for 3 consecutive hours to consider orders to transition from IV to SQ long acting insulin. Infuse insulin into an existing line of a compatible IV solution and Y site insulin infusion into existing line below the infusion pump. Insulin infusion and existing line of compatible IV solution should each run as a primary line on separate infusion pumps at the ordered infusion rates. If no compatible IV solutions are ordered, infuse into an existing line of 0.45% NaCL infusion at 20 ml/hr. 100 Units in 100 mL, Calculator: Goal Range: 120-150 mg/dl, Starting Insulin Infusion Factor: 0.03 ketamine injection 5 mg (KETALAR) 5 mg, intravenous, Once, On Tue02/16/23 at 1515, For 1 dose, PACU (only), Hold in the setting of neurocognitive disorders or a history hallucinations. Given 02/16/2023 2:54 PM CDT 5 mg Lactated Ringer's 20 mL/hr, intravenous, Continuous, Starting on Tue02/16/23 at 1315, PACU & Post-Op Continued from OR 02/16/2023 1:18 PM CDT 20 mL/hr 20 mL/hr NaCl 0.45 % infusion 20 mL/hr, intravenous, Continuous Infusion: Per Instructions PRN, Infuse if no compatible IV solutions are ordered with IV insulin, Starting on Tue02/16/23 at 1019, Infuse insulin into an existing line of a compatible IV solution and Y site insulin infusion into existing line below the infusion pump. If no compatible IV solutions are ordered, infuse into an existing line of 0.45% NaCL infusion at 20 ml/hr. NaCl 0.9% with heparin (porcine) 1,000 Units 1,000 mL intraperitoneal solution 1,000 mL, intraperitoneal, Once in surgery, OR use only, Starting on Tue02/16/23 at 1010, For 1 dose, Intra-Op, *For Intraperitoneal use in OR* Given 02/16/2023 11:42 AM CDT 1,000 mL Peritoneum oxyCODONE IR tablet 10 mg (ROXICODONE) 10 mg, oral, Every 4 hours PRN, severe pain or score 7-10 of 10, 1 tab for pain 4-6, 2 tabs for pain 7-10, Starting on Tue02/16/23 at 1416 Given 02/16/2023 5:21 PM CDT 10 mg oxyCODONE IR tablet 5 mg (ROXICODONE) 5 mg, oral, Once as needed, For pain 4 or greater, Starting on Tue02/16/23 at 1250, For 1 dose, PACU (only) Given 02/16/2023 1:12 PM CDT 5 mg oxyCODONE IR tablet 5 mg (ROXICODONE) 5 mg, oral, Every 4 hours PRN, moderate pain or score 4-6 of 10, 1 tab for pain 4-6, 2 tabs for pain 7-10, Starting on Tue02/16/23 at 1416 documented in this encounter Active and Recently Administered Medications Times are shown in CDT. Scheduled Medication Order 02/14/2023 02/15/2023 02/16/2023 ceFAZolin injection 2,000 mg (ANCEF) (COMPLETED) 2,000 mg (rounded from 2,175 mg = 25 mg/kg ? 87 kg), intravenous, Once, On Tue02/16/23 at 1030, For 1 dose, Intra-Op, Administer within 1 hour prior to surgical incision If needed, reconstitute vial per package insert instructions. See IVAG for administration guidelines., Drug Monitoring Program: Pharmacist to adjust medication dosing based on indication and drug clearance factors., Indications: Prophylaxis, surgical 1114 (Given - Provid er: Glenn Sarabia, TURBOGENERATOR OPERATOR, REGISTERED VETERINARY TECHNICIAN) insulin aspart U-100 injection 2 Units (NovoLOG FlexPen) (COMPLETED) 2 Units, subcutaneous, Once, On Tue02/16/23 at 1515, For 1 dose, PACU & Post-Op 1526 (Given - Provid er: Aubree Chávez, R.N.) ketamine injection 5 mg (KETALAR) (COMPLETED) 5 mg, intravenous, Once, On Tue02/16/23 at 1515, For 1 dose, PACU (only), Hold in the setting of neurocognitive disorders or a history hallucinations. 1454 (Given - Provid er: Aubree Chávez, R.N.) Continuous Medication Order 02/14/2023 02/15/2023 02/16/2023 Lactated Ringer's 20 mL/hr, intravenous, Continuous, Starting on Tue02/16/23 at 1315, PACU & Post-Op 1318 (Continued from OR - Provider: Aubree Chávez RRishabh. - Comment: 350 IN BAG, placed on pump @ 20/hr) PRN Medication Order 02/14/2023 02/15/2023 02/16/2023 acetaminophen tablet 1,000 mg (TYLENOL) (COMPLETED)(Linked Group 1) 1,000 mg, oral, Once as needed, other, If patient has not received in the previous 6 hours, Starting on Tue02/16/23 at 1250, For 1 dose, PACU (only), Oral unless RASS less than -1 or nausea/vomiting. Do not use if given in last 6 hours 1312 (Given - Provid er: Aubree Chávez, R.N.) acetaminophen tablet 650 mg (TYLENOL) 650 mg, oral, Every 4 hours PRN, moderate pain or score 4-6 of 10, mild pain or score 1-3 of 10, Starting on Tue02/16/23 at 1417 fentaNYL injection 25 mcg (SUBLIMAZE) (CANCELED) 25 mcg, intravenous, Every 2 min PRN, For pain 4 or greater (maximum 100 mcg). If max dose of Fentanyl is reached and if pain is greater than 4, discontinue Fentanyl: give Hydromorphone, Starting on Tue02/16/23 at 1250, PACU (only) 1316 (Given - Provid er: Aubree Chávez R.N.)1334 (Given - Provider: Aubree Chávez R.N.)1335 (Given - Provider: Aubree Chávez R.N.)1427 (Given - Provider: Aubree Chávez R.N.) insulin regular 1 Unit/mL in NaCl 0.9% 100 mL infusion 0-25 Units/hr (0-25 mL/hr), intravenous, Continuous Infusion: Per Instructions PRN, Initiate infusion for glucose greater than 150 mg/dL, Starting on Tue02/16/23 at 1019, NOTIFY PRESCRIBER IF: Glucose is not within target range after 4 hours of IV insulin infusion. Patient starts eating. (50% of clear liquid diet or more) Patient starts bolus tube feedings. The insulin infusion has been either 0 to 1 unit/hour for 3 consecutive hours to consider orders to transition from IV to SQ long acting insulin. Infuse insulin into an existing line of a compatible IV solution and Y site insulin infusion into existing line below the infusion pump. Insulin infusion and existing line of compatible IV solution should each run as a primary line on separate infusion pumps at the ordered infusion rates. If no compatible IV solutions are ordered, infuse into an existing line of 0.45% NaCL infusion at 20 ml/hr. 100 Units in 100 mL, Calculator: Goal Range: 120-150 mg/dl, Starting Insulin Infusion Factor: 0.03 NaCl 0.45 % infusion 20 mL/hr, intravenous, Continuous Infusion: Per Instructions PRN, Infuse if no compatible IV solutions are ordered with IV insulin, Starting on Tue02/16/23 at 1019, Infuse insulin into an existing line of a compatible IV solution and Y site insulin infusion into existing line below the infusion pump. If no compatible IV solutions are ordered, infuse into an existing line of 0.45% NaCL infusion at 20 ml/hr. NaCl 0.9% with heparin (porcine) 1,000 Units 1,000 mL intraperitoneal solution (COMPLETED) 1,000 mL, intraperitoneal, Once in surgery, OR use only, Starting on Tue02/16/23 at 1010, For 1 dose, Intra-Op, *For Intraperitoneal use in OR* 1142 (Given - Provid er: Tee Celeste M.D., Ph.D.) oxyCODONE IR tablet 10 mg (ROXICODONE)(Linked Group 2) 10 mg, oral, Every 4 hours PRN, severe pain or score 7-10 of 10, 1 tab for pain 4-6, 2 tabs for pain 7-10, Starting on Tue02/16/23 at 1416 1721 (Given - Provid er: Marie Taveras R.N., C.M.S.R.N.) oxyCODONE IR tablet 5 mg (ROXICODONE) (COMPLETED) 5 mg, oral, Once as needed, For pain 4 or greater, Starting on Tue02/16/23 at 1250, For 1 dose, PACU (only) 1312 (Given - Provid er: Aubree Chávez R.N.) oxyCODONE IR tablet 5 mg (ROXICODONE)(Linked Group 2) 5 mg, oral, Every 4 hours PRN, moderate pain or score 4-6 of 10, 1 tab for pain 4-6, 2 tabs for pain 7-10, Starting on Tue02/16/23 at 1416 1721 (See Alternativ e - Provider: Marie Taveras R.N., C.Oracio.S.R.N.) Linked Groups Order Group 1: acetaminophen tablet 1,000 mg (TYLENOL) (COMPLETED)Jump to med 1,000 mg, oral, Once as needed, other, If patient has not received in the previous 6 hours, Starting on Tue02/16/23 at 1250, For 1 dose, PACU (only), Oral unless RASS less than -1 or nausea/vomiting. Do not use if given in last 6 hours Or acetaminophen injection 1,000 mg (COMPLETED) 1,000 mg, intravenous, at 400 mL/hr, Administer over 15 Minutes, Once as needed, other, If patient has not received in previous 6 hours, Starting on Tue02/16/23 at 1250, For 1 dose, PACU (only), Oral unless RASS less than -1 or nausea/vomiting. Do not use if given in last 6 hours, Restriction Criteria (Pharmacy will review and approve if criteria met): Unable to take or tolerate medications administered via the enteral route or orally (not just NPO) Group 2: oxyCODONE IR tablet 10 mg (ROXICODONE)Jump to med 10 mg, oral, Every 4 hours PRN, severe pain or score 7-10 of 10, 1 tab for pain 4-6, 2 tabs for pain 7-10, Starting on Tue02/16/23 at 1416 Or oxyCODONE IR tablet 5 mg (ROXICODONE)Jump to med 5 mg, oral, Every 4 hours PRN, moderate pain or score 4-6 of 10, 1 tab for pain 4-6, 2 tabs for pain 7-10, Starting on Tue02/16/23 at 1416 documented in this encounter Additional Health Concerns Assessment Noted Time PHQ-9 Depression Total Score: 3 01/04/20 18 10:38 AM CDT documented as of this encounter Care Teams Mattress Weaver Relationship Specialty Start Date End Date Elsewhere, Pcp PCP - General Family Medicine 01/29/20 documented as of this encounter
--- OUTSIDE RECORDS SUMMARY | 2023-06-02 12:32 | XMS_ITS | Encounter Summary ---
Author Name Unknown Organization [facility] Address [address] [place] [address] Care Team Providers Care Nut Dehydrator Operator Name Role Phone Elsewhere, Pcp Primary Care Provider Unavailabl e Encounter Details Date Type Department Care Team (Latest Contact Info) Description 03/02/2023 10:30 AM CDT Clinical Communication Virtual Review in [place], [place] [address] [place], [place] [id number] Canceled Social History Tobacco Use Types Packs/Day Years [...] How often do you attend confucianism or voodoo serv ices? 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
--- OUTSIDE RECORDS SUMMARY | 2023-06-02 12:32 | XMS_ITS | Encounter Summary ---
Author Name Unknown Organization [facility] Address [address] [place] [address] Care Team Providers Care Case Monitor Name Role Phone Elsewhere, Pcp Primary Care Provider Unavailabl e Reason for Referral * Outpatient (Routine) - Closed Specialty Diagnoses / Procedures Referred By Robi hong Referred To Contact Diagnoses Follow Up Examination Status Post Surgery Peripheral Arterial Disease (HCC) Procedures Lower Extremity Arterial (MIMI) - Exercise (Claudication) Jayjay Pak P.A.-C. [address] [place] [phone] [facility] Referral ID Status Reason Start Date Expiration Date Visits Re quested Visits Authorized [id number] Closed 02/23/2022 02/23/2023 1 1 Reason for Visit * Outpatient (Routine) - Closed Specialty Diagnoses / Procedures Referred By Robi hong Referred To Contact Diagnoses Follow Up Examination Status Post Surgery Peripheral Arterial Disease (HCC) Procedures Lower Extremity Arterial (MIMI) - Exercise (Claudication) Jayjay Pak P.A.-C. [address] [place] [phone] [facility] Referral ID Status Reason Start Date Expiration Date Visits Re quested Visits Authorized [id number] Closed 02/23/2022 02/23/2023 1 1 Encounter Details Date Type Department Care Team (Latest Contact Info) Description 03/03/2023 8:01 AM CDT - 03/03/2023 8:20 AM CDT Hospital Encounter Department of Vascular Medicine in [place], [place] [address] [place] [address] Jayjay Pak P.A.-C. [address] [place] [phone] Follow Up Examination Status Post Surgery; Peripheral [...] week 03/24/2021 How often do you attend zoroastrianism or scientologist serv ices? 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 CV VASCULAR PROC EDURES documented in this encounter Visit Diagnoses Diagnosis Follow Up Examination Status Post Surgery Peripheral Arterial Disease (HCC) documented in this encounter Additional Health Concerns Assessment Noted Time PHQ-9 Depression Total Score: 3 01/04/20 18 10:38 AM CDT documented as of this encounter Care Teams Case Monitor Relationship Specialty Start Date End Date Elsewhere, Pcp PCP - General Family Medicine 01/29/20 documented as of this encounter
--- OUTSIDE RECORDS SUMMARY | 2023-06-02 12:32 | XMS_ITS | Encounter Summary ---
Author Name Unknown Organization [facility] Address [address] [place] [address] Care Team Providers Care Solutions Specialist Name Role Phone Elsewhere, Pcp Primary Care Provider Unavailabl e Encounter Details Date Type Department Care Team (Late st Contact Info) Description 02/16/2023 10:41 AM CDT Anesthesia Event [facility] [address] [place] [address] Uriel Lin M.D. [address] [place] [address] Anesthesia Record Procedure Summary Procedure Name Responsible Anesthesiologist Anesthesia Start Time Anesthesia Stop Time INSERTION Peritoneal DIALYSIS CATHETER (Abdomen) Uriel Lin M.D. 02/16/23 1041 02/16/23 1252 Events Date Time Event Comment 02/16/2023 1041 An Start Machine/Equipme nt Checked Infection Precautions Followed Procedure/Site Verified NPO Status Verified Supine Standard ASA Monitors Applied 1049 An Induction 1051 An Intubation 1100 Turnover to Proceduralist 1118 Proc Start 1224 Proc Fin 1235 Turnover to ANE Staff 1235 Airway Removal Criteria Met 1235 Extubation/Airway Removed 1236 an stop data 1248 Quick Note 1252 An End I completed my handoff to the receiving staff during which we 1. Identified the patient 2. Identified the responsible provider 3. Reviewed the pertinent medical history 4. Discussed the surgical course 5. Reviewed intra-op anesthesia management and issues during anesthesia 6. Set expectations for post-procedure period 7. Allowed opportunity for questions and acknowledgement of understanding. Meds Name Total fentanyl injection 50 mcg/mL 50 mcg lidocaine 2% (mg) injection 100 mg rocuronium 10 mg/mL injection 50 mg ondansetron 4 mg/2 mL injection 4 mg sugammadex 100 mg/mL injection 200 mg propofol 10 mg/mL injection 150 mg dexAMETHasone (DECADRON) injection 4 mg/ mL 4 mg ceFAZolin injection 2,000 mg (ANCEF) 2 g insulin regular 1 Unit/mL in NaCl 0.9% 1 00 mL infusion 0 Units Lactated Ringers Free Drip 600 mL * Agents No agents on file. * Blood No blood administrations on file. Lines, Drains, and Airways Type Details Placement Removal Peritoneal Dialysis Catheter 02/16/23; Dr. Celeste; Right lower abdomen 02/16/23 0000 by Yanely Martinez R.N. Wound 02/16/23; Incision; Abdomen; Right, Mid; Primapore 02/16/23 0000 by Yanely Martinez R.N. Wound 02/16/23; Incision; Abdomen; Right, Lower; 02/16/23; 1213; Duplicate LDA 02/16/23 0000 by Yanely Martinez R.N. 02/16/23 1213 by Yanely Martinez R.N. Peripheral IV Placement Date: 09/05; Placement Time: 07; Catheter Size: 20 G; Orientation: Distal, Left, Lower, Posterior; Location: Forearm; Site Prep: Chlorhexidine (Preferred); Technique: Anatomical landmarks; Inserted by: GAGANDEEP; Insertion Attempts: 1; Removal Date: 02/16/23; Removal Time: 173; Removal Reason: Patient discharged 02/16/23 0729 by Karen Ghotra [email or web address] 02/16/23 1730 by Marie Taveras R.N., C.M.S.R.N. ETT Placement Date: 09/05; Placement Time: 1051 (created via procedure documentation); Mask Ventilation: Oral/Nasal airway needed; Technique: Direct laryngoscopy, intubation; Type: Standard ETT; Single Lumen Tube Size: 7.5 mm; Cuffed: Yes; Blade Size: MAC 4; Location: Oral; Grade View: Grade 1; Insertion Attempts: 1; Placement Verification: Bilateral breath sounds, Positive ETCO2, Symmetrical chest wall movement; Removal Date: 02/16/23; Removal Time: 1235 02/16/23 1051 by Edward Nazario M.D. 02/16/23 1235 by Edward Nazario M.D. documented in this encounter Social History Tobacco [...] week 03/24/2021 How often do you attend hindu or taoist serv ices? Never 03/24/2021 Do you belong to any clubs o r organizations such as hindu groups, unions, fraternal or athletic groups, or [...] Answer Date Recorded PHQ-2 Score 0 10/20/2018 [facility] - Occupational Stress Questionnaire Answer Date Recorded [...] living situation today? I have a [facility] place to live 10/26/2022 Education Answer Date Recorded What is the highest level of school you have completed or the highest degree you have received? 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 - 02/16/2023 1:52 PM CDT Preprocedure Anesthesia & H&P Assessment Procedure Summary Anesthesia Start Date/Time: 02/16/23 1041 Procedure: INSERTION Peritoneal DIALYSIS CATHETER (Abdomen) Diagnosis: Chronic Kidney Disease Stage 5 Glomerular Filtration Rate Less Than 15 (HCC) [N18.5] Pre-op diagnosis: Chronic Kidney Disease Stage 5 Glomerular Filtration Rate Less Than 15 (HCC) [N18.5] Location: [address] / [facility] in [place], [place] Providers: Tee Celeste M.D., Ph.D. Pertinent components of the patient's history including current problem list, medical history, surgical history, family history, social history, medications and allergies were reviewed. Present illness and pre-op diagnosis were confirmed. The planned surgery / procedure was verified with the patient / legal guardian. 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) (+) Atherosclerosis Of [place] Arteries Of Left Leg With Ulceration Of Unspecified Site (HCC) (+) Diabetes Mellitus Type 2 With Other Circulatory Complication Hyperglycemic (HCC) (+) 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 (HCC) (+) Hypertension NOS (+) Peripheral Arterial Disease (HCC) RESP (+) Acute Respiratory Failure With Hypoxia (HCC) RENAL/REPRO (+) Chronic Kidney Disease Stage 5 Glomerular Filtration Rate Less Than 15 (HCC) (+) 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 (HCC) (+) 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) (+) Diabetes Mellitus Type 2 With Other Circulatory Complication Hyperglycemic (HCC) PSYCH (+) Depression Major Recurrent Moderate (HCC) Other (+) Atherosclerosis Of [place] Ar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 (HCC) (+) Atherosclerosis Of [place] Arteries Of Left Leg With Ulceration Of Unspecified Site (HCC) (+) Restless Leg Syndrome (+) Ulcer Leg Left (+) Ulcer Toe Left OBJECTIVE PHYSICAL EXAMINATION Airway (HEENT) Mallampati: II Cardiovascular Rhythm: Regular Functional Capacity: >4 METS Pulmonary Pulmonary Assessment: Clear General / Constitutional Constitutional Assessment: Normal ASSESSMENT / PLAN ANESTHESIA PLAN ASA: 3 Anesthesia Plan: general Patient seen and allergies reviewed, anesthesia plan and risks discussed directly with patient /legal guardian or through an senior marketing specialist. Risks/Benefits/Alternatives of Blood transfusion discussed with patient / legal guardian, includingan opportunity to ask questions and/or decline some or all transfusion therapies. The patient / legal guardian consented to the use of all blood products, as deemed medically necessary Approval to Proceed: approved for anesthesia * Anesthesia Postprocedure Evaluation - Uriel Lin M.D. - 02/16/2023 12:46 PM CDT Patient: Onesimo Walton Procedure Summary Date: 02/16/23 Room / Location: [address] / [facility] in [place], [place] Anesthesia Start: 1041 Anesthesia Stop: Procedure: INSERTION Peritoneal DIALYSIS CATHETER (Abdomen) Diagnosis: Chronic Kidney Disease Stage 5 Glomerular Filtration Rate Less Than 15 (HCC) (Chronic Kidney Disease Stage 5 Glomerular Filtration Rate Less Than 15 (HCC) [N18.5]) Providers: Tee Celeste M.D., Ph.D. Responsible Provider: Uriel Lin M.D. Anesthesia Type: general ASA Status: Not recorded Anesthesia Type: general Last vitals Vitals Value Taken Time BP 176/66 02/16/23 1245 Temp Pulse 72 02/16/23 1245 Resp 19 02/16/23 1245 SpO2 95 % 02/16/23 1245 Vitals shown include unvalidated device data. Please reference Vitals flowsheet for most recent vital signs. Anesthesia Post Evaluation Patient Disposition: dismissal Cardiovascular status: hemodynamics (HR & BP) acceptable Respiratory status: patent airway with spontaneous effort Temperature: normothermic Oxygen requirements: nasal cannula Level of consciousness: awake Pain score: pain adequately controlled and/or at baseline Post Op nausea/vomiting: none Hydration status: euvolemic Norman Franklin M.D., Ph.D. Supervisor Road Administrator CA1 * Anesthesia Procedure Notes - Edward Nazario M.D. - 02/16/2023 11:04 AM CDT Associated Order(s): Airway Airway Date/Time: 02/16/2023 10:51 AM Performed by: Edward Nazario M.D. Authorized by: Uriel Lin M.D. Patient location during procedure: OR / Procedure Area PROCEDURE DETAILS: Mask difficulty assessment: oral/nasal airway needed Final airway type: direct laryngoscopy, intubation Laryngeal Manipulation: no Final airway difficulty of direct laryngoscopy (DL): 0-easy Final best view of glottic structures - Cormack/Lehane Score: grade 1 ETT location: oral Blade type: MAC 4 Tube size: 7.5 ETT distance at teeth/gum: 23 Oral tube type: standard ETT Cuffed: yes Leak Test Performed: no Number of attempt to successful placement: 1 Airway confirmation: bilateral breath sounds, positive ETCO2 and bilateral chest rise Other previous techniques attempted: none PRE PROCEDURE DETAILS: Pre evaluation for airway management: procedure Urgency: elective Preop assessment of probable difficulty: no difficulty anticipated Preoxygenation: bag valve mask SEDATION / ANESTHESIA Anesthesia method: anesthesia POST PROCEDURE DETAILS: Procedure outcome: successful Airway event: no complications ATTESTATION STATEMENT A resident or fellow participated in the procedure, and the bridal stylist sales consultant was present for the entire procedure. documented in this encounter Plan of Treatment Not on file documented as of this encounter Procedures Procedure Name Priority Date/Time Associated Diagnosis Comments AIRWAY MANAGEMENT Routine 02/16/2023 10: 51 AM CDT documented in this encounter Results * Airway (02/16/2023 10:51 AM CDT) Narrative Edward Nazario M.D. - 02/16/2023 10:51 AM CDT Edward Nazario M.D. ? 02/16/2023 11:32 AM Airway Date/Time: 02/16/2023 10:51 AM Performed by: Edward Nazario M.D. Authorized by: Uriel Lin M.D. ?? Patient location during procedure: OR / Procedure Area PROCEDURE DETAILS: Mask difficulty assessment: oral/nasal airway needed Final airway type: direct laryngoscopy, intubation Laryngeal Manipulation: no ?? Final airway difficulty of direct laryngoscopy (DL): 0-easy Final best view of glottic structures - Cormack/Lehane Score: grade 1 ETT location: oral Blade type: MAC 4 Tube size: 7.5 ETT distance at teeth/gum: 23 Oral tube type: standard ETT Cuffed: yes Leak Test Performed: no ?? Number of attempt to successful placement: 1 Airway confirmation: bilateral breath sounds, positive ETCO2 and bilateral chest rise Other previous techniques attempted: none PRE PROCEDURE DETAILS: Pre evaluation for airway management: procedure Urgency: elective Preop assessment of probable difficulty: no difficulty anticipated Preoxygenation: bag valve mask SEDATION / ANESTHESIA Anesthesia method: anesthesia POST PROCEDURE DETAILS: ? Procedure outcome: successful ?? Airway event: no complications ATTESTATION STATEMENT A resident or fellow participated in the procedure, and the bridal stylist sales consultant was present for the entire procedure. Uriel Lin M.D. ANESTHESIA ORDERABLE S documented in this encounter Visit Diagnoses Not on filedocumented in this encounter Administered Medications Inactive Administered Medications - up to 3 most recent administrations Medication Order MAR Action Action Date Dose Rate Site ceFAZolin injection 2,000 mg (ANCEF) 2,000 mg (rounded from 2,175 mg = 25 mg/kg ? 87 kg), intravenous, Once, On Tue02/16/23 at 1030, For 1 dose, Intra-Op, Administer within 1 hour prior to surgical incision If needed, reconstitute vial per package insert instructions. See IVAG for administration guidelines., Drug Monitoring Program: Pharmacist to adjust medication dosing based on indication and drug clearance factors., Indications: Prophylaxis, surgical Given 02/16/2023 11:14 AM CDT 2 g dexAMETHasone injection (DECADRON) intravenous, As needed, Starting on Tue02/16/23 at 1100, Anesthesia Intra-op Given 02/16/2023 11:00 AM CDT 4 mg fentaNYL injection (SUBLIMAZE) intravenous, As needed, Starting on Tue02/16/23 at 1049, Anesthesia Intra-op Given 02/16/2023 10:49 AM CDT 50 mcg Lactated Ringer's intravenous, Continuous Infusion: Per Instructions PRN, Starting on Tue02/16/23 at 1041, Anesthesia Intra-op New Bag 02/16/2023 10:41 AM CDT lidocaine (PF) (cardiac) injection intravenous, As needed, Starting on Tue02/16/23 at 1049, Anesthesia Intra-op Given 02/16/2023 10:49 AM CDT 100 mg ondansetron (PF) injection (ZOFRAN) intravenous, As needed, Starting on Tue02/16/23 at 1217, Anesthesia Intra-op Given 02/16/2023 12:17 PM CDT 4 mg propofoL injection (DIPRIVAN) intravenous, As needed, Starting on Tue02/16/23 at 1049, Anesthesia Intra-op Given 02/16/2023 10:49 AM CDT 150 mg rocuronium injection (ZEMURON) intravenous, As needed, Starting on Tue02/16/23 at 1049, Anesthesia Intra-op Given 02/16/2023 10:49 AM CDT 50 mg sugammadex injection (BRIDION) intravenous, As needed, Starting on Tue02/16/23 at 1221, Anesthesia Intra-op Given 02/16/2023 12:21 PM CDT 200 mg documented in this encounter Additional Health Concerns Assessment Noted Time PHQ-9 Depression Total Score: 3 01/04/20 18 10:38 AM CDT documented as of this encounter Care Teams Solutions Specialist Relationship Specialty Start Date End Date Elsewhere, Pcp PCP - General Family Medicine 01/29/20 documented as of this encounter
--- OUTSIDE RECORDS SUMMARY | 2023-06-02 12:32 | XMS_ITS | Encounter Summary ---
Author Name Unknown Organization [facility] Address [address] [place] [address] Care Team Providers Care Manager Ccu Name Role Phone Elsewhere, Pcp Primary Care Provider Unavailabl e Encounter Details Date Type Department Care Team (Latest Contact Info) Description 02/17/2023 9:18 AM CDT - 02/17/2023 11:59 PM CDT Hospital Encounter Department of Laboratory Medicine in [place], [place] [address] [place] [address] Haseeb Menon Jr., D.O. [address] [place] [phone] 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 (HCC); Diabetes Mellitus Type 2 With Diabetic Nephropathy (HCC); Hyperparathyroidism Secondary (HCC); Anemia Of Chronic Renal Disease Discharge Disposition: Home or Self Care Social [...] How often do you attend hindu or hinduism serv ices? Never 03/24/2021 Do you belong [...] Answer Date Recorded PHQ-2 Score 0 10/20/2018 [facility] [place] of Occupat ional Health - Occupational Stress [...] your living situation today? I have a [facility] place to live 10/26/2022 Education Answer Date Recorded What is the highest level of school you have completed or the highest degree you have received? 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) Anemia Of Chronic Renal Disease QUANTIFERON-TB GOLD PLUS, B Routine 02/17/2023 9:35 AM CDT 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 (HCC) 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) Anemia Of Chronic Renal Disease HCV AB SCRN W/REFLEX TO HCV PCR, S Routine 02/17/2023 9:35 AM CDT 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 (HCC) 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) Anemia Of Chronic Renal Disease IRON AND TOT IRON-BINDING CAPACITY, S/P Routine 02/17/2023 9:35 AM CDT 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 (HCC) 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) Anemia Of Chronic Renal Disease HBC TOTAL AB, SERUM Routine 02/17/2023 9 :35 AM CDT 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 (HCC) 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) Anemia Of Chronic Renal Disease HBS ANTIBODY, SERUM Routine 02/17/2023 9 :35 AM CDT 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 (HCC) 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) Anemia Of Chronic Renal Disease HEPATITIS B SURFACE ANTIGEN Routine 02/17/2023 9:35 AM CDT 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 (HCC) 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) Anemia Of Chronic Renal Disease CBC WITH DIFFERENTIAL, B Routine 02/17/2023 9:35 AM CDT 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 (HCC) 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 tuberculosis antigens was detected. Latent infection with M. tuberculosis is unlikely. A single negative result does not exclude infection with M. tuberculosis. In patients at high risk for M.tuberculosis infection, a second test should be considered in accordance with the 2017 ATS/IDSA/CDC Clinical Practice Guidelines for Diagnosis of Tuberculosis in Adults and Children [Cody DM et. al. Clin. Infect. Dis. 2017;64(2):111-115]. The reference range for the 'TB1 Ag minus Nil Result' and 'TB2 Ag minus Nil Result' is an Interferon-gamma level <0.35 IU/mL. TB1 Ag minus Nil Result 0.00 IU/mL 02/21/2023 12:00 PM CDT [facility] TB2 Ag minus Nil Result 0.00 IU/mL 02/21/2023 12:00 PM CDT [facility] Mitogen minus Nil Result 6.23 IU/mL 02/21/2023 12:00 PM CDT [facility] Nil Result 0.02 IU/mL 02/21/2023 12:00 PM CDT [facility] Blood (Blood, Venous) 02/17/2023 9:35 AM CDT 02/19/2023 4:15 PM CDT Narrative - [facility] - 02/21/2023 12:00 PM CDT Specimen Information: Specimen ID: [id number] Specimen Type: Blood Specimen Collection Start Date: 02/17/2023 ??9:35 AM Specimen Received Date: 02/19/2023 ??4:15 PM Specimen ID: [id number] Specimen Type: Blood Specimen Collection Start Date: 02/17/2023 ??9:35 AM Specimen Received Date: 02/19/2023 ??4:15 PM Specimen ID: [id number] Specimen Type: Blood Specimen Collection Start Date: 02/17/2023 ??9:35 AM Specimen Received Date: 02/19/2023 ??4:15 PM Specimen ID: [id number] Specimen Type: Blood Specimen Collection Start Date: 02/17/2023 ??9:35 AM Specimen Received Date: 02/19/2023 ??4:16 PM Estiven He Jr.O. LAB MICROBIO LOGY - BLOOD ORDERABLES - [facility] [address] [place] [id number], [facility] in [address] [address] * HBs Antibody, Serum (02/17/2023 9:35 AM CDT) Pathologist [facility] HBs Antibody, S Negative 5:03 PM CDT [facility] Comment: ----REFERENCE VALUE---- Unvaccinated: Negative Vaccinated: Positive HBs Antibody, Quantitative, S <3.50 mIU/mL 02/17/2023 5:03 PM CDT [facility] Comment: ----REFERENCE VALUE---- <8.50: Negative 8.50-11.49: Indeterminate >=11.50: Positive Blood (Blood, Venous) 02/17/2023 9:35 AM CDT 02/17/2023 3:36 PM CDT Haseeb Menon Jr., D.O. LAB MICROBIO LOGY - BLOOD ORDERABLES Performing Organization Address [facility] Co de Phone Number [facility] [address] [place] [address], [facility] [place] [address] * Hepatitis B Surface Antigen (02/17/2023 9:35 AM CDT) [facility] HBs Antigen, S Nonreactive Nonreactive 02/17/2023 5:03 PM CDT [facility] Blood (Blood, Venous) 02/17/2023 9:35 AM CDT 02/17/2023 3:36 PM CDT Haseeb Menon Jr., D.O. LAB MICROBIO LOGY - BLOOD ORDERABLES Performing Organization Address [facility] Co de Phone Number [facility] [address] [place] [phone], [facility] [address] [place] [address] * HBc Total Ab, Serum (02/17/2023 9:35 AM CDT) Pathologist [facility] HBc Total Ab, S Negative Negative 02/19/2023 10:09 AM CDT [facility] Blood (Blood, Venous) 02/17/2023 9:35 AM CDT 02/19/2023 8:50 AM CDT Haseeb Menon Jr., D.O. LAB MICROBIO LOGY - BLOOD ORDERABLES [facility] [address] [place] [address] [facility] [address] [place] [address] * HCV Ab Scrn w/Reflex to HCV PCR, Serum (02/17/2023 9:35 AM CDT) Pathologist [facility] HCV Ab Screen, S Negative Negative 02/18/20 3:35 PM CDT [facility] Comment: Biotin has been identified by the chinchilla farmer as a potential interfering substance. Higher concentrations of biotin may be found in multivitamins, hair/nail supplements, and workout supplements. If the result does not match clinical observations, repeat testing after patient refrains from the use of supplements for at least 12 hours. Blood (Blood, Venous) 02/17/2023 9:35 AM CDT 02/17/2023 2:20 PM CDT Narrative [facility] - 02/17/2023 3:35 PM CDT Specimen Information: Specimen ID: [id number] Specimen Type: Blood Specimen Collection Start Date: 02/17/2023 ??9:35 AM Specimen Received Date: 02/17/2023 ??2:20 PM Specimen ID: [id number] Specimen Type: Blood Specimen Collection Start Date: 02/17/2023 ??9:35 AM Specimen Received Date: 02/17/2023 ??2:16 PM Haseeb Menon Jr., D.O. LAB MICROBIO LOGY - BLOOD ORDERABLES [facility] [address] [place] [address], [facility] [place] [address] [place] [phone] * (ABNORMAL) Renal Function Panel (02/17/2023 9:35 AM CDT) Pathologist [facility] Potassium, P 4.4 3.6 - 5.2 mmol/L 02/17/2023 1:42 PM CDT [facility] Sodium, P 135 135 - 145 mmol/L 02/17/2023 1:42 PM CDT [facility] Chloride, P 93(L) 98 - 107 mmol/L 02/17/2023 1:42 PM CDT [facility] Bicarbonate, P 20(L) 22 - 29 mmol/L 02/17/2023 1:42 PM CDT [facility] Anion Gap, P 22(H) 7 - 15 02/17/2023 1:42 PM CDT [facility] BUN (Blood Urea Nitrogen), P 77(H) 8 - 24 mg/dL 02/17/2023 1:42 PM CDT [facility] Creatinine 5.14(H) 0.74 - 1.35 mg/dL 02/17/2023 1:42 PM CDT [facility] Estimated GFR (eGFR) <15(L) >=60 mL/min/BSA 02/17/2023 1:42 PM CDT [facility] Comment: Estimated GFR calculated using the 2020 CKD_EPI creatinine equation. Calcium, Total, P 7.2(L) 8.8 - 10.2 mg/dL 02/17/2023 1:42 PM CDT [facility] Glucose, P 182(H) 70 - 140 mg/dL 02/17/2023 1:42 PM CDT [facility] Albumin, P 3.2(L) 3.5 - 5.0 g/dL 02/17/2023 1:42 PM CDT [facility] Phosphorus (Inorganic), P 6.9(H) 2.5 - 4.5 mg/dL 02/17/2023 4:02 PM CDT [facility] Blood (Blood, Venous) 02/17/2023 9:35 AM CDT 02/17/2023 11:01 AM CDT Narrative - [facility] - 02/17/2023 4:02 PM CDT Specimen Information: Specimen ID: [id number] Specimen Type: Blood Specimen Collection Start Date: 02/17/2023 ??9:35 AM Specimen Received Date: 02/17/2023 11:01 AM Specimen ID: [id number] Specimen Type: Blood Specimen Collection Start Date: 02/17/2023 ??9:35 AM Specimen Received Date: 02/17/2023 ??3:35 PM Haseeb Menon Jr., D.O. LAB BLOOD AD D-ON Performing Organization Address [facility] Co de Phone Number - [facility] [address] [place] [address], [facility] in [place] [address] [place] [address] [facility] - [facility] [address] [place] [address] * (ABNORMAL) Iron and Total Iron-Binding Capacity (02/17/2023 9:35 AM CDT) Iron 54 50 - 150 mcg/dL 02/17/2023 4:22 PM CDT [facility] Total Iron Binding Capacity 162(L) 250 - 400 mcg/dL 02/17/2023 4:22 PM CDT [facility] Percent Saturation 33 14 - 50 % 02/17/2023 4:22 PM CDT [facility] Blood (Blood, Venous) 02/17/2023 9:35 AM CDT 02/17/2023 3:35 PM CDT Haseeb Menon Jr., D.O. LAB BLOOD AD D-ON Performing Organization Address [facility] de Phone Number - [facility] [address] [place] [address], [facility] - [facility] [address] [place] [address] * Ferritin (02/17/2023 9:35 AM CDT) Ferritin, S 385 31 - 409 mcg/L 02/17/2023 1:16 PM CDT [facility] Comment: Biotin has been identified by the chinchilla farmer as a potential interfering substance. Higher concentrations of biotin may be found in multivitamins, hair/nail supplements, and workout supplements. If the result does not match clinical observations, repeat testing after patient refrains from the use of supplements for at least 12 hours. Blood (Blood, Venous) 02/17/2023 9:35 AM CDT 02/17/2023 11:01 AM CDT Haseeb Menon Jr., D.O. LAB BLOOD AD D-ON - [facility] [address] [place] [address], [facility] in [place] [address] [place] [address] * (ABNORMAL) CBC with Differential, Blood (02/17/2023 9:35 AM CDT) Hemoglobin 8.5(L) 13.2 - 16.6 g/dL 02/17/2023 9:51 AM CDT [facility] Hematocrit 26.8(L) 38.3 - 48.6 % 02/17/2023 9:51 AM CDT [facility] Erythrocytes 2.83(L) 4.35 - 5.65 x10(12)/L 02/17/2023 9:51 AM CDT [facility] MCV 94.7 78.2 - 97.9 fL 02/17/2023 9:51 AM CDT [facility] RBC Distrib Width 14.4 11.8 - 14.5 % 02/17/2023 9:51 AM CDT [facility] Platelet Count 298 135 - 317 x10(9)/L 02/17/2023 9:51 AM CDT [facility] Leukocytes 9.8(H) 3.4 - 9.6 x10(9)/L 02/17/2023 9:51 AM CDT [facility] Neutrophils 7.40(H) 1.56 - 6.45 x10(9)/L 02/17/2023 9:51 AM CDT [facility] Lymphocytes 1.41 0.95 - 3.07 x10(9)/L 02/17/2023 9:51 AM CDT [facility] Monocytes 0.92(H) 0.26 - 0.81 x10(9)/L 02/17/2023 9:51 AM CDT [facility] Eosinophils 0.07 0.03 - 0.48 x10(9)/L 02/17/2023 9:51 AM CDT [facility] Basophils <0.04 0.01 - 0.08 x10(9)/L 02/17/2023 9:51 AM CDT [facility] Blood (Blood, Venous) 02/17/2023 9:35 AM CDT 02/17/2023 9:36 AM CDT Haseeb Menon Jr. DFeiOFei LAB BLOOD AD D-ON Performing Organization Address City/State/[facility] Co de Phone Number - [facility] [address] [place] [address], [facility] FB60 [facility] in [place] [address] [place] [address] documented in this encounter Visit Diagnoses Diagnosis 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 (HCC) 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) Anemia Of Chronic Renal Disease documented in this encounter Additional Health Concerns Assessment Noted Time PHQ-9 Depression Total Score: 3 01/04/20 18 10:38 AM CDT documented as of this encounter Care Teams Manager Ccu Relationship Specialty Start Date End Date Elsewhere, Pcp PCP - General Family Medicine 01/29/20 documented as of this encounter
--- OUTSIDE RECORDS SUMMARY | 2023-06-02 12:32 | XMS_ITS | Encounter Summary ---
Author Name Unknown Organization [facility] Address [address] [place] [address] Care Team Providers Care Quarrying Manager Name Role Phone Elsewhere, Pcp Primary Care Provider Unavailabl e Encounter Details Date Type Department Care Team (Latest Contact Info) Description 02/17/2023 9:18 AM CDT - 02/17/2023 11:59 PM CDT Hospital Encounter Department of Laboratory Medicine in [place], [place] [address] [place] [address] Haseeb Menon Jr., D.O. [address] [place] [phone] 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 [...] week 03/24/2021 How often do you attend congregational or mosque serv ices? Never 03/24/2021 Do you belong to any clubs o r organizations such as congregational groups, unions, fraternal or athletic groups, or [...] Answer Date Recorded PHQ-2 Score 0 10/20/2018 [facility] [place] of Occupat ional Health - Occupational Stress [...] your living situation today? I have a [facility] place to live 10/26/2022 Education Answer Date Recorded What is the highest level of school you have completed or the highest degree you have received? 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) Anemia Of Chronic Renal Disease URINALYSIS WITH MICROSCOPIC Routine 02/17/2023 9:26 AM CDT 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 (HCC) 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 LAB URINE OR DERABLES [facility] [address] [place] [address], [facility] [place] [address] [place] [address] * (ABNORMAL) Urinalysis with Microscopic: Urine, Voided (02/17/2023 9:26 AM CDT) Source Urine, Urine, Voided 02/17/2023 9:56 AM CDT [facility] Clarity Clear Clear 02/17/2023 10:03 AM CDT [facility] Color Yellow 02/17/2023 10:03 AM CDT [facility] Comment: ----REFERENCE VALUE---- Colorless Yellow Cha Blood Small(A) Negative 02/17/2023 10:03 AM CDT [facility] Nitrite Negative Negative 02/17/2023 10:03 AM CDT [facility] Leukocyte Esterase Negative Negative 02/17/2023 10:03 AM CDT [facility] Protein >=300(A) mg/dL 02/17/2023 10:03 AM CDT [facility] Comment: ----REFERENCE VALUE---- Negative Trace Glucose 250(A) Negative mg/dL 02/17/2023 10:03 AM CDT [facility] Ketones, QI(U) Negative Negative mg/dL 02/17/2023 10:03 AM CDT [facility] Bilirubin Negative Negative 02/17/2023 10:03 AM CDT [facility] pH 5.0 5.0 - 8.0 02/17/2023 10:03 AM CDT [facility] Specific [place] 1.015 1.001 - 1.035 02/17/2023 10:03 AM CDT [facility] Urobilinogen 0.2 0.2 - 1.0 mg/dL 02/17/2023 10:03 AM CDT [facility] White Blood Cells None Seen /hpf 02/17/2023 10:28 AM CDT [facility] Comment: ----REFERENCE VALUE---- Males: 0-3 Females: 0-10 Unknown: 0-10 Red Blood Cells Occ-2 0 - 2 /hpf 10:28 AM CDT [facility] Granular Casts Occasional(A ) None Seen /lpf 02/17/2023 10:28 AM CDT [facility] Squamous Cells 4-10 /hpf 02/17/2023 10:28 AM CDT [facility] Urine (Urine, Voided) 02/17/2023 9:26 AM CDT 02/17/2023 9:56 AM CDT Haseeb Menon Jr., D.OFei LAB URINE OR DERABLES [facility] [address] [place] [address], [facility] FB60 [facility] in [place] [address] [place] [address] documented in this encounter Visit Diagnoses Diagnosis 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 (HCC) 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
--- OUTSIDE RECORDS SUMMARY | 2023-06-02 12:33 | XMS_ITS | Encounter Summary ---
Author Name Unknown Organization [facility] Address [address] [place] [address] Care Team Providers Care Stra[employer] Name Role Phone Elsewhere, Pcp Primary Care Provider Unavailabl e Encounter Details Date Type Department Care Team (Late st Contact Info) Description 02/08/2023 Orders Only Division of Nephrology and Hypertension in [place], [place] [address] [place] [address] Haseeb Menon Jr., D.O. [address] [place] [address] Diabetes Mellitus Type 2 With Other Circulatory Complication Hyperglycemic (HCC) (Primary Dx); 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 (HCC) Social History Tobacco Use Types Packs/Day Years Used Date Smoking Tobacco: Every Day Cigarettes 1 35 Started: 05/16/1983 Smokeless Tobacco: Never Comments:has tried to quit m any times, wishes no intervention at this time Alcohol Use Standard Drinks/Week Comments Yes 0 (1 standard drink = 0.6 oz pur e alcohol) yearly Humiliation, Afraid, Rape, and Kick questionnair e [...] week 03/24/2021 How often do you attend scientologist or methodist serv ices? Never 03/24/2021 Do you belong to any clubs o r organizations such as scientologist groups, unions, fraternal or athletic groups, or [...] Answer Date Recorded PHQ-2 Score 0 10/20/2018 [facility] - Occupational [...] money to buy more. Never true 10/27/19 Within the past 12 months, t he [...] your living situation today? I have a [facility] place to live 10/26/2022 Education Answer Date Recorded What is the highest level of school you have completed or the highest degree you have received? 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 Higher concentrations of biotin may be found in multivitamins, hair/nail supplements, and workout supplements. If the result does not match clinical observations, repeat testing after patient refrains from the use of supplements for at least 12 hours. Blood (Blood, Venous) 02/14/2023 11:09 AM CDT 02/14/2023 3:29 PM CDT Narrative [facility] - 02/14/2023 3:29 PM CDT Specimen Information: Specimen ID: [id number] Specimen Type: Blood Specimen Collection Start Date: 02/14/2023 11:09 AM Specimen Received Date: 02/14/2023 ??3:29 PM Specimen ID: [id number] Specimen Type: Blood Specimen Collection Start Date: 02/14/2023 11:09 AM Specimen Received Date: 02/14/2023 ??2:48 PM Haseeb Menon Jr., D.O. LAB MICROBIO LOGY - BLOOD ORDERABLES Performing Organization Address City/[facility]/[place] [address], [facility] in [place] [address] [place] [address] * HBc Total Ab, Serum (02/14/2023 11:09 AM CDT) Pathologist [facility] HBc Total Ab, S Negative Negative 02/15/2023 9:08 AM CDT [facility] Blood (Blood, Venous) 02/14/2023 11:09 AM CDT 02/15/2023 6:57 AM CDT Haseeb Menon Jr., D.O. LAB MICROBIO LOGY - BLOOD ORDERABLES [facility] [address] [place] [address] [facility] [address] [place] [address] * HBs Antibody, Serum (02/14/2023 11:09 AM CDT) Pathologist [facility] HBs Antibody, S Negative 4:34 PM CDT [facility] Comment: ----REFERENCE VALUE---- Unvaccinated: Negative Vaccinated: Positive HBs Antibody, Quantitative, S <3.50 mIU/mL 02/14/2023 4:34 PM CDT [facility] Comment: ----REFERENCE VALUE---- <8.50: Negative 8.50-11.49: Indeterminate >=11.50: Positive Blood (Blood, Venous) 02/14/2023 11:09 AM CDT 02/14/2023 3:28 PM CDT Haseeb Menon Jr., D.O. LAB MICROBIO LOGY - BLOOD ORDERABLES Performing Organization Address [facility]/ZIP Co de Phone Number [facility] [address] [place] [address], [facility] [place] [address] * Hepatitis B Surface Antigen (02/14/2023 11:09 AM CDT) Pathologist [facility] HBs Antigen, S Nonreactive Nonreactive 02/14/2023 4:34 PM CDT [facility] Blood (Blood, Venous) 02/14/2023 11:09 AM CDT 02/14/2023 3:28 PM CDT Haseeb Menon Jr., D.O. LAB MICROBIO LOGY - BLOOD ORDERABLES Performing Organization Address [facility] Co de Phone Number [facility] [address] [place] [address], [facility] [place] [address] * QuantiFERON-Tb Gold Plus, Blood (02/14/2023 11:09 AM CDT) Pathologist [facility] QuantiFERON-TB Gold Plus Result Negative Negative 02/17/2023 12:53 PM CDT [facility] Comment: No interferon-gamma response to M. tuberculosis antigens was detected. Latent infection with M. tuberculosis is unlikely. A single negative result does not exclude infection with M. tuberculosis. In patients at high risk for M.tuberculosis infection, a second test should be considered in accordance with the 2017 ATS/IDSA/CDC Clinical Practice Guidelines for Diagnosis of Tuberculosis in Adults and Children [Cody CANSECO et. al. Clin. Infect. Dis. 2017;64(2):111-115]. The reference range for the 'TB1 Ag minus Nil Result' and 'TB2 Ag minus Nil Result' is an Interferon-gamma level <0.35 IU/mL. TB1 Ag minus Nil Result 0.00 IU/mL 02/17/2023 12:53 PM CDT [facility] TB2 Ag minus Nil Result 0.00 IU/mL 02/17/2023 12:53 PM CDT [facility] Mitogen minus Nil Result 8.79 IU/mL 02/17/2023 12:53 PM CDT [facility] Nil Result 0.03 IU/mL 02/17/2023 12:53 PM CDT [facility] Blood (Blood, Venous) 02/14/2023 11:09 AM CDT 02/16/2023 11:08 AM CDT [facility] - 02/17/2023 12:53 PM CDT Specimen Information: Specimen ID: [id number] Specimen Type: Blood Specimen Collection Start Date: 02/14/2023 11:09 AM Specimen Received Date: 02/16/2023 11:08 AM Specimen ID: [id number] Specimen Type: Blood Specimen Collection Start Date: 02/14/2023 11:09 AM Specimen Received Date: 02/16/2023 11:08 AM Specimen ID: [id number] Specimen Type: Blood Specimen Collection Start Date: 02/14/2023 11:09 AM Specimen Received Date: 02/16/2023 11:08 AM Specimen ID: [id number] Specimen Type: Blood Specimen Collection Start Date: 02/14/2023 11:09 AM Specimen Received Date: 02/16/2023 11:08 AM Estiven He Jr.O. LAB MICROBIO LOGY - BLOOD ORDERABLES [facility] [address] [place] [id number], [facility] in [address] [address] documented in this encounter Visit Diagnoses Diagnosis Diabetes Mellitus Type 2 With Other Circulatory Complication Hyperglycemic (HCC)- Primary 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 (HCC) Diabetes Mellitus Type 2 With Other Circulatory Complication Hyperglycemic (HCC) 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 (HCC) documented in this encounter Additional Health Concerns Assessment Noted Time PHQ-9 Depression Total Score: 3 01/04/20 18 10:38 AM CDT documented as of this encounter Care Teams [employer] Relationship Specialty Start Date End Date Elsewhere, Pcp PCP - General Family Medicine 01/29/20 documented as of this encounter
--- OUTSIDE RECORDS SUMMARY | 2023-06-02 12:33 | XMS_ITS | Encounter Summary ---
Author Name Unknown Organization [facility] Address [address] [place] [address] Care Team Providers Care Bladder Tier Name Role Phone Elsewhere, Pcp Primary Care Provider Unavailabl e Reason for Visit * Reason Comments Med Refill Encounter Details Date Type Department Care Team (Late st Contact Info) Description 01/30/2023 Refill Division of Nephrology and Hypertension in [place], [place] [address] [place] [address] Farrah Barnes M.D., Ph.D. [address] [place] [address] Med Refill Social History Tobacco Use Types [...] week 03/24/2021 How often do you attend yarsanism or advent serv ices? Never 03/24/2021 Do you belong to any clubs o r organizations such as yarsanism groups, unions, fraternal or athletic groups, or [...] Answer Date Recorded PHQ-2 Score 0 10/20/2018 [facility] - Occupational Stress Questionnaire Answer Date [...] your living situation today? I have a [facility] place to live 10/26/2022 Education Answer Date Recorded What is the highest level of school you have completed or the highest degree you have received? 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
--- OUTSIDE RECORDS SUMMARY | 2023-06-02 12:33 | XMS_ITS | Encounter Summary ---
Author Name Unknown Organization [facility] Address [address] [place] [address] Care Team Providers Care Extrusion Former Name Role Phone Elsewhere, Pcp Primary Care Provider Unavailabl e Reason for Referral * Outpatient (Routine) - Authorized Specialty Diagnoses / Procedures Referred By Contac t Referred To Contact Diagnoses 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 (HCC) 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) Anemia Of Chronic Renal Disease Procedures DX Chest AP or PA and Lateral 2 Views Haseeb Menon Jr., D.O. [address] [place] [address] [facility] Region Referral ID Status Reason Start Date Expiration Date V isits Requested Visits Authorized [id number] Authorized 01/18/2023 01/18/2024 1 1 * Outpatient (Routine) - Authorized Specialty Diagnoses / Procedures Referred By Contac t Referred To Contact Diagnoses 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 (HCC) 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) Anemia Of Chronic Renal Disease Procedures ECG 12 Lead Haseeb Menon Jr., D.O. [address] [place] [address] [facility] Region Referral ID Status Reason Start Date Expiration Date V isits Requested Visits Authorized [id number] Authorized 01/18/2023 01/18/2024 1 1 Reason for Visit * Appointment Request (Routine) - Closed Specialty Diagnoses / Procedures Referred By Robi hong Referred To Contact Nephrology and Hypertension Referral ID Status Reason Start Date Expiration Date Visits Re quested Visits Authorized [id number] Closed 01/06/2023 01/06/2024 1 1 Encounter Details Date Type Department Care Team (Latest Contact Info) Description 01/18/2023 10:00 AM CDT External Outreach Division of Nephrology and Hypertension in [place], [place] [address] [place] [address] Haseeb Menon Jr., D.O. [address] [place] [address] 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 (HCC); Diabetes Mellitus Type 2 With Diabetic Nephropathy (HCC); Hyperparathyroidism Secondary (HCC); Anemia Of Chronic Renal Disease Social History Tobacco Use Types Packs/Day Years [...] week 03/24/2021 How often do you attend samaritan or cheondoism serv ices? Never 03/24/2021 Do you belong to any clubs o r organizations such as samaritan groups, unions, fraternal or athletic groups, or [...] Answer Date Recorded PHQ-2 Score 0 10/20/2018 [facility] [place] of Occupat ional Health - Occupational Stress [...] your living situation today? I have a [facility] place to live 10/26/2022 Education Answer Date Recorded What is the highest level of school you have completed or the highest degree you have received? 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/2021 8:13 PM [employer]CH[employer]PER[employer] Gender Identity Male 08/31/2019 2:40 PM CDT Sexual Orientation Straight 08/31/2019 2: 40 PM CDT documented as of this encounter Last Filed Vital Signs Vital Sign Reading Time Taken Comments Blood Pressure 130/72 01/18/2023 10:55 AM CDT Pulse 87 01/18/2023 10:55 AM CDT Temperature - - Respiratory Rate - - Oxygen Saturation - - Inhaled Oxygen Concentration - - Weight 87 kg (191 lb 12.8 oz) 01/18/2023 10:55 A M CDT Height 175.2 cm (5' 8.98) 01/18/2023 10:55 AM C DT Body Mass Index 28.34 01/18/2023 10:55 AM CDT documented in this encounter Progress Notes * Haseeb Menon Jr., D.O. - 01/18/2023 10:00 AM CDT Referring Provider: ELSEWHERE, PCP SUBJECTIVE REASON FOR VISIT [place] [facility] Follow-up regards CKD stage 4 secondary to diabetic hypertensive nephrosclerosis with profound anemia HISTORY OF PRESENT ILLNESS Mr. Walton is a 72 y.o. male who presents with a very complex set of circumstances, he is diffuse and severe vascular disease, CKD stage 4, likely 5, on the background of diabetic hypertensive and ischemic nephrosclerosis. His renal function has slowly declined, his current serum creatinine level is 4.1 mg/dL. We had referred previously for peritoneal dialysis catheter consideration, this was delayed, as during that visit he was relatively asymptomatic. Prior to and subsequent to that visit, he has been progressively developing more fatigue, poor appetite, dyspnea on exertion, and poor mobility. He is on outpatient GOLD regimen, and I note his hemoglobin was 8.6 checked in [place] on the December. When he appeared for his Aranesp shot, 50 mcg subQ monthly on the 14 of January, his hemoglobin was unexpectedly 7.2. He is not had any melena, no hematochezia, no changes at all in hisbowel habits. No epistaxis, he had some minimal bleeding from a left ear wound only. He does note however that his weight has gradually increased by approximately 10 lb over the past 2-3 weeks. I appreciate his weight in CKD clinic 1 month ago was 81 kg, and currently is 87 kg. He was able to repeat back to me our discussions regards increasing his furosemide in response to volume gain, but had failed to put these into effect. He is noticing some lower extremity swelling and abdominal distention. He is quite fatigued, is only able to walk approximately a block. Does not have PND, he does have some mild orthopnea. He has had no hypoglycemic events recently. His hemoglobin A1c is well controlled at 7.2%. We discussed that his hemoglobin is likely on the background of some dilution, but also that we areat a point where despite normal iron levels we need to accelerate his GOLD regimen, and we will proceed with blood transfusion. We discussed the risks benefits and alternatives of blood transfusion including a 130 1000 risk of infection, and roughly 1 in 3000 risk of a blood transfusion reaction. Heis willing to proceed with this. We will also administer some IV furosemide with the blood transfusion, and I reinforced his need toincrease the furosemide as we had instructed previously to double his previous dose for 4 days. He is also experienced some some pruritus, which has become more difficult to manage. He is now been adherent to the regimen of taking Tums with each meal. His phosphorus is quite elevated at 7, which explains his pruritus. We discussed phosphorus limited foods. We also discussed that he is at a point where we need to make plans with respect to renal replacement. He is again happy to consider peritoneal dialysis and he is not a candidate for renal transplant. He was accompanied to his visit today by his as well as his daughter. They are quite devoted to his care. They were helpful historians. Past Medical History: Diagnosis Date Bruit Carotid [...] hours as needed (neuropathy)., Disp: , Rfl: allopurinoL (ZYLOPRIM) 100 mg tablet, Take 100 mg by mouth daily., Disp: , Rfl: amLODIPine (NORVASC) 5 mg tablet, Take 1 tablet (5 mg total) by mouth daily., Disp: 90 tablet, Rfl:[address] tablet, Take 325 mg by mouth daily. Take in evening, Disp: , Rfl: atorvastatin (LIPITOR) 20 mg tablet, Take 1 tablet (20 mg total) by mouth at bedtime., Disp: 90 tablet, Rfl: 3 blood sugar diagnostic (Accu-Chek Guide test strips) strips, TEST 6 TIMES DAILY DIRECTED, Disp: , Rfl: calcium citrate (CALCITRATE) 950 mg (200 mg calcium) tablet, TAKE FOUR TABLETS BY MOUTH AT BEDTIME (DOSE INCREASE), Disp: 300 tablet, Rfl: 3 carvediloL (COREG) [...] taking differently: Inject 10-25 Units under the skin 3 (three) times a day with meals. (sometimes takes more than 3 times per day depending on what heis eating and activity).), Disp: , Rfl: insulin glargine [...] TAKE ONE CAPSULE BY MOUTH EVERY DAY MOPHEAD SEWER, Disp: , Rfl: nortriptyline (PAMELOR) 50 mg [...] systems reviewed and are negative. OBJECTIVE BP 130/72 Pulse 87 Ht 175.2 cm Wt 87 kg BMI 28.34 kg/m?? PHYSICAL EXAMINATION General: Awake alert oriented HEENT: RJ, EOMI, Mucous membranes moist, no oral lesions Neck: No Masses, No Bruits Lungs: Clear to ascultation Heart: Regular Rate and Rhythm, No ectopy Murmurs or rubs Abdomen: Soft, Non-tender, distended Extremities: No cyanosis, +1 to +2 pitting lower extremity edema Neuro: Cranial Nerves intact, Gait is normal, strength grossly normal, he has no myoclonus Skin: no suspicious lesions identified Psychiatric: Normal affect DIAGNOSTICS Creatinine 4.1 mg/dL ASSESSMENT / PLAN #1 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 (HCC) He has end-stage renal disease secondary to diabetic hypertensive and ischemic nephrosclerosis. Today was a very complex visit, we discussed the followin. Plan for placement of peritoneal dialysis catheter and initiate peritoneal dialysis, nocturnal cyclic. 2. Blood transfusion 1 unit, followed by 20 mg furosemide 3. 40 mg furosemide 2 tablets orally twice daily 4. Continue with Tums, increased to with meals 5. Goal glycosylated hemoglobin less than 8%-achieved 6. Check hepatitis labs for predialysis, and CONNER approach 7. Coordinate care with [facility] dialysis team-e-mail sent #2 Diabetes Mellitus Type 2 With Diabetic Nephropathy (HCC) Glycemic control excellent please see above discussion #3 Hyperparathyroidism Secondary (HCC) He is dramatically hyperphosphatemic in addition to 2 Tums with each meal, asked him to be cautiouswith high phosphorus containing foods. #4 Anemia Of Chronic Renal Disease I suspect the dramatic decrease in hemoglobin is multifactorial, both on the background of progressive resistance to GOLD, and we will increase his Aranesp to 50 mcg twice monthly, but as well iron resistance, and we will move ahead with a transfusion of 1 unit of blood. We will also recheck his CBCtoday. Total time: 60 minute Counseling Time: 45 minute Haseeb Menon Jr., D.O. documented in this encounter Plan of Treatment Scheduled Orders Name Type Priority Associated Diagnoses Orde r Schedule ECG 12 Lead ECG Routine 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 (HCC) 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) Anemia Of Chronic Renal Disease Expected: 01/18/2023 (Approximate), Expires: 04/19/2024 DX Chest AP or PA and Lateral 2 Views Imaging RAD - Routine (most inpatients and all outpatients) 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 (HCC) 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) Anemia Of Chronic Renal Disease Expected: 01/18/2023 (Approximate), Expires: 01/19/2024 documented as of this encounter Results * QuantiFERON-Tb Gold Plus, Blood (02/17/2023 9:35 AM CDT) [facility] QuantiFERON-TB Gold Plus Result Negative Negative 02/21/2023 12:00 PM CDT [facility] Comment: No interferon-gamma response to M. tuberculosis antigens was detected. Latent infection with M. tuberculosis is unlikely. A single negative result does not exclude infection with M. tuberculosis. In patients at high risk for M.tuberculosis infection, a second test should be considered in accordance with the 2017 ATS/IDSA/CDC Clinical Practice Guidelines for Diagnosis of Tuberculosis in Adults and Children [Gilinsfareedn AJITH et. al. Clin. Infect. Dis. 2017;64(2):111-115]. The [...] AM CDT 02/19/2023 4:15 PM CDT Narrative [facility] - 02/21/2023 12:00 PM CDT Specimen Information: Specimen ID: [id number] Specimen Type: Blood Specimen Collection Start Date: 02/17/2023 ??9:35 AM Specimen Received Date: 02/19/2023 ??4:15 PM Specimen ID: [id number] Specimen Type: Blood Specimen Collection Start Date: 02/17/2023 ??9:35 AM Specimen Received Date: 02/19/2023 ??4:15 PM Specimen ID: [id number] Specimen Type: Blood Specimen Collection Start Date: 02/17/2023 ??9:35 AM Specimen Received Date: 02/19/2023 ??4:15 PM Specimen ID: [id number] Specimen Type: Blood Specimen Collection Start Date: 02/17/2023 ??9:35 AM Specimen Received Date: 02/19/2023 ??4:16 PM Haseeb Menon Jr., D.O. LAB MICROBIO LOGY - BLOOD ORDERABLES [facility] [address] [place] [address], [facility] [place] [address] * HBs Antibody, Serum (02/17/2023 9:35 AM CDT) [facility] HBs Antibody, S Negative 5:03 PM CDT AUST Comment: ----REFERENCE VALUE---- Unvaccinated: Negative Vaccinated: Positive HBs Antibody, Quantitative, S <3.50 mIU/mL 02/17/2023 5:03 PM CDT AUST Comment: ----REFERENCE VALUE---- <8.50: Negative 8.50-11.49: Indeterminate >=11.50: Positive Blood (Blood, Venous) 02/17/2023 9:35 AM CDT 02/17/2023 3:36 PM CDT Haseeb Menon Jr., D.O. LAB MICROBIO LOGY - BLOOD ORDERABLES Performing Organization Address [facility] Co de Phone Number [id number] [place] [address] - [address] [address] * Hepatitis B Surface Antigen (02/17/2023 9:35 AM CDT) HBs Antigen, S Nonreactive Nonreactive 02/17/2023 5:03 PM CDT AUS Blood (Blood, Venous) 02/17/2023 9:35 AM CDT 02/17/2023 3:36 PM CDT Haseeb Menon Jr., D.O. LAB MICROBIO LOGY - BLOOD ORDERABLES Performing Organization Address [facility] Co de Phone Number [facility] [address] [place] [address], [address] [address] * HBc Total Ab, Serum (02/17/2023 9:35 AM CDT) HBc Total Ab, S Negative Negative 02/19/2023 10:09 AM CDT [facility] Blood (Blood, Venous) 02/17/2023 9:35 AM CDT 02/19/2023 8:50 AM CDT Haseeb Menon Jr., D.O. LAB MICROBIO LOGY - BLOOD ORDERABLES Performing Organization Address City/[facility]/ZIP Co de Phone Number [facility] [address] [address] [facility] [address] [place] [address] * HCV Ab Scrn w/Reflex to HCV PCR, Serum (02/17/2023 9:35 AM CDT) HCV Ab Screen, S Negative Negative 02/18/20 3:35 PM CDT [facility] Comment: Biotin has been identified by the cans vacuum tester as a potential interfering substance. Higher concentrations of biotin may be found in multivitamins, hair/nail supplements, and workout supplements. If the result does not match clinical observations, repeat testing after patient refrains from the use of supplements for at least 12 hours. Blood (Blood, Venous) 02/17/2023 9:35 AM CDT 02/17/2023 2:20 PM CDT Narrative [facility] - 02/17/2023 3:35 PM CDT Specimen Information: Specimen ID: [id number] Specimen Type: Blood Specimen Collection Start Date: 02/17/2023 ??9:35 AM Specimen Received Date: 02/17/2023 ??2:20 PM Specimen ID: [id number] Specimen Type: Blood Specimen Collection Start Date: 02/17/2023 ??9:35 AM Specimen Received Date: 02/17/2023 ??2:16 PM Haseeb Menon Jr., D.O. LAB MICROBIO LOGY - BLOOD ORDERABLES [facility] [address] [place] [address], [facility] [place] [address] * (ABNORMAL) Renal Function Panel (02/17/2023 9:35 AM CDT) Potassium, P 4.4 3.6 - 5.2 mmol/L [...] AM CDT 02/17/2023 11:01 AM CDT Narrative [facility] - 02/17/2023 4:02 PM CDT Specimen Information: Specimen ID: [id number] Specimen Type: Blood Specimen Collection Start Date: 02/17/2023 ??9:35 AM Specimen Received Date: 02/17/2023 11:01 AM Specimen ID: [id number] Specimen Type: Blood Specimen Collection Start Date: 02/17/2023 ??9:35 AM Specimen Received Date: 02/17/2023 ??3:35 PM Haseeb Menon Jr., D.O. LAB BLOOD AD D-ON [facility] [address] [place] [address], [facility] OWAT [facility] in [place] [address] [place] [address] AUST [facility] [address] [place] [address] * (ABNORMAL) Iron and Total Iron-Binding Capacity [...] LAB BLOOD AD D-ON Performing Organization Address City/[facility]/ZIP Co de Phone Number [facility] [address] [place] [address], [facility] AUS [facility] [address] [place] [address] * Ferritin (02/17/2023 9:35 AM CDT) Ferritin, S 385 31 - 409 mcg/L 02/17/2023 1:16 PM CDT [facility]AT Comment: Biotin has been identified by the cans vacuum tester as a potential interfering substance. Higher concentrations of biotin may be found in multivitamins, hair/nail supplements, and workout supplements. If the result does not match clinical observations, repeat testing after patient refrains from the use of supplements for at least 12 hours. Blood (Blood, Venous) 02/17/2023 9:35 AM CDT 02/17/2023 11:01 AM CDT Haseeb Menon Jr., D.O. LAB BLOOD AD D-ON [facility] [address] [place] [address], [place] OW[place] [facility] [place] [address] [place] [address] * (ABNORMAL) CBC with Differential, Blood (02/17/2023 9:35 AM CDT) Pathologist [facility] Hemoglobin 8.5(L) 13.2 - 16.6 g/dL 02/17/2023 [...] 02/17/2023 9:36 AM CDT Haseeb Menon Jr. DFeiO. LAB BLOOD AD D-ON [facility] [address] [place] [address], [facility] FB60 [facility] in [place] [address] [place] [address] * (ABNORMAL) Albumin, Random, Urine (02/17/2023 9:26 AM CDT) Microalbumin 895.0 mg/L 02/17/2023 1:53 PM CDT [facility] Creatinine 42 mg/dL 02/17/2023 12:50 PM CDT [facility] Albumin/Creatinin e Ratio 2131(H) <17 mg/g 02/17/2023 1:53 PM CDT [facility] Urine (Urine, Voided) 02/17/2023 9:26 AM CDT 02/17/2023 11:00 AM CDT Haseeb Menon Jr., D.O. LAB URINE OR DERABLES [facility] [address] [place] [address], [place] OW[place] [facility] [place] [address] [place] [address] * (ABNORMAL) Urinalysis with Microscopic: Urine, Voided [...] 8.0 02/17/2023 10:03 AM CDT FB60 Specific [place] 1.015 1.001 - 1.035 02/17/2023 10:03 AM [...] 02/17/2023 9:56 AM CDT Haseeb Menon Jr., D.O. LAB URINE OR DERABLES Performing Organization Address City/State/[facility] Co de Phone Number [facility] [address] [place] [address], [facility] FB60 [facility] in [place] [address] [place] [address] documented in this encounter Visit Diagnoses Diagnosis [...] documented as of this encounter Care Teams Extrusion Former Relationship Specialty Start Date End Date Elsewhere, Pcp PCP - General Family Medicine 01/29/20 documented as of this encounter
--- OUTSIDE RECORDS SUMMARY | 2023-06-02 12:33 | XMS_ITS | Encounter Summary ---
Author Name Unknown Organization [facility] Address [address] [place] [address] Care Team Providers Care Pizza Driver Name Role Phone Elsewhere, Pcp Primary Care Provider Unavailabl e Reason for Visit * Appointment Request (Routine) - Closed Specialty Diagnoses / Procedures Referred By Robi t Referred To Contact Nephrology and Hypertension Referral ID Status Reason Start Date Expiration Date Visits Re quested Visits Authorized [id number] Closed 10/28/2022 10/28/2023 1 1 Encounter Details Date Type Department Care Team (Latest Contact Info) Description 11/23/2022 2:30 PM CDT External Outreach Division of Nephrology and Hypertension in [place], [place] [address] [place] [address] Haseeb Menon Jr., D.O. 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 Never 03/24/2021 Do you belong to any clubs o r organizations such as advent groups, unions, fraternal or athletic groups, or [...] Answer Date Recorded PHQ-2 Score 0 10/20/2018 [facility] - Occupational [...] your living situation today? I have a [facility] place to live 10/26/2022 Education Answer Date Recorded What is the highest level of school you have completed or the highest degree you have received? 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 Walton is a 72 y.o. male who presents with the above matters. I am very grateful for the input from our surgical team, who deferred placement of his peritoneal dialysis catheter. We discussed the issue of incremental initiation of PD with the patient he is willing to consider this. His appetite continues to be poor, no morning nausea however. He is not having shortness of breath,he is not had any chest pain. His appetite has not substantially changed. He is having some pruritus generally in his scalp and face but otherwise doing well from this perspective. His bowel habits have been regular, no change in urine character or quantity. No orthostatic issues. He is not been weighing himself, we discussed this, his weight has increased by roughly 4 lb since his last visit here. He is noticing some more shortness of breath with exertion. He is on any GOLD regimen, his last injection was on the 14 of November here in [place]. His hemoglobin at that time was 8.6, improved from 7.7 the month prior. His most recent set of iron levels on the 15 of October are acceptable. He would like to have his labs done in [place] we will make sure this is ordered. He is still having hypoglycemic events but these have decreased in frequency. During our visit today he did have a sugar of 79 and he took some extra glucose. No changes in his neuropathy vision. He still is in favor of peritoneal dialysis as his renal replacement modality of choice. We reviewed his ECG and chest x-ray. He is also set to consider a shoulder arthroplasty, and we discussed his being acceptable for general anesthesia. Past Medical History: Diagnosis Date Bruit Carotid [...] TAKE ONE CAPSULE BY MOUTH EVERY DAY ASSISTED, Disp: , Rfl: nortriptyline (PAMELOR) 50 mg [...] systems reviewed and are negative. OBJECTIVE BP 130/64 Pulse 85 Ht 175.2 cm Wt 84.8 kg BMI 27.63 kg/m?? PHYSICAL EXAMINATION General: Awake alert oriented HEENT: RJ, EOMI, Mucous membranes moist, no oral lesions Neck: No Masses, No Bruits Lungs: Basilar crackles, clearing with cough Heart: Regular Rate and Rhythm, No ectopy Murmurs or rubs Abdomen: Soft, Non-tender Extremities: No cyanosis, No clubbing: +1 pitting lower extremity edema Neuro: Cranial Nerves intact, Gait is antalgic strength grossly normal Skin: no suspicious lesions identified, thin skin, multiple ecchymoses. Psychiatric: Normal affect DIAGNOSTICS Hepatitis panel negative, ECG shows sinus rhythm, chest x-ray clear ASSESSMENT / PLAN #1 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 (HCC) We are nearing a point at which we will need to consider initiation of renal replacement, I do favor the consideration of incremental peritoneal dialysis for him, as we continue to struggle with his cardiorenal perspective. For now I have asked him to double his dose of furosemide for the next 2 days, given his weight gain. We will get a set of chemistries in [place]. Going forward: 1. Continue GOLD regimen as below 2. Goal blood pressure less than 120/80 3. Goal glycosylated hemoglobin less than 7.5% 4. No NSAIDs or Pal 2 inhibitors 5. Frequent follow-up to re-evaluate his balance with perspective of the cardiorenal issues and hisdiabetic nephropathy. 6. We will hold off on planning for a peritoneal dialysis catheter placement at this point. #2 Diabetes Mellitus Type 2 With Diabetic Nephropathy (HCC) Appreciate that his glycemic control is quite tight and we will continue to monitor carefully we will consider decreasing his insulin another 10%. #3 Hyperparathyroidism Secondary (HCC) We will check his calcium phosphorus and PTH #4 Anemia Of Chronic Renal Disease Hemoglobin improving but still not yet at goal which is between 10 and 11.5 grams/deciliter. We will continue to monitor his iron stores. #5 Acidosis Metabolic Hyperchloremic Monitoring, most recent bicarbonate was 21 on October 15. 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 Total time: 40 minutes Counseling Time: 35 minutes Kylah Livingston Jr..O. documented in this encounter Plan of Treatment Not on file documented as of this encounter Results * (ABNORMAL) Renal Function Panel (01/11/2023 8:30 AM CDT) Potassium, P 4.3 3.6 - 5.2 mmol/L 01/11/2023 11:30 AM CDT OWAT Sodium, P 138 135 - 145 mmol/L 01/11/2023 11:30 AM CDT OWAT Chloride, P 99 98 - 107 mmol/L 01/11/2023 11:30 AM CDT OWAT Bicarbonate, P 22 22 - 29 mmol/L 01/11/2023 11:30 AM CDT OWAT Anion Gap, P 17(H) 7 - 15 01/11/2023 11:30 AM CDT OWAT BUN (Blood Urea Nitrogen), P 76(H) 8 - 24 mg/dL 01/11/2023 11:30 AM CDT OWAT Creatinine 4.15(H) 0.74 - 1.35 mg/dL 01/11/2023 11:30 AM CDT OWAT Estimated GFR (eGFR) <15(L) >=60 mL/min/BSA 01/11/2023 11:30 AM CDT OWAT Comment: Estimated GFR calculated using the 2020 CKD_EPI creatinine equation. Calcium, Total, P 8.3(L) 8.8 - 10.2 mg/dL 01/11/2023 11:30 AM CDT OWAT Glucose, P 146(H) 70 - 140 mg/dL 01/11/2023 11:30 AM CDT OWAT Albumin, P 3.2(L) 3.5 - 5.0 g/dL 01/11/2023 11:30 AM CDT OWAT Phosphorus (Inorganic), P 7.1(H) 2.5 - 4.5 mg/dL 01/11/2023 3:02 PM CDT MKTO Blood (Blood, Venous) 01/11/2023 8:30 AM CDT 01/11/2023 11:00 AM CDT [facility] - 01/11/2023 3:02 PM CDT Specimen Information: Specimen ID: [id number] Specimen Type: Blood Specimen Collection Start Date: 01/11/2023 ??8:30 AM Specimen Received Date: 01/11/2023 11:00 AM Specimen ID: [id number] Specimen Type: Blood Specimen Collection Start Date: 01/11/2023 ??8:30 AM Specimen Received Date: 01/11/2023 ??2:35 PM Haseeb Menon Jr., D.O. LAB BLOOD AD D-ON [facility] [address] [place] [address], [facility] [place] [address] [place] [address] [facility] [address] [place] [address] * (ABNORMAL) CBC with Differential, Blood (01/11/2023 8:30 AM CDT) Pathologist [facility] Hemoglobin 8.6(L) 13.2 - 16.6 g/dL 01/11/2023 9:15 AM CDT FB60 Hematocrit 26.1(L) 38.3 - 48.6 % 01/11/2023 9:15 AM CDT FB60 Erythrocytes 2.70(L) 4.35 - 5.65 x10(12)/L 01/11/2023 9:15 AM CDT FB60 MCV 96.7 78.2 - 97.9 fL 01/11/2023 9:15 AM CDT FB60 RBC Distrib Width 13.5 11.8 - 14.5 % 01/11/2023 9:15 AM CDT FB60 Platelet Count 296 135 - 317 x10(9)/L 01/11/2023 9:15 AM CDT FB60 Leukocytes 9.6 3.4 - 9.6 x10(9)/L 01/11/2023 9:15 AM CDT FB60 Neutrophils 6.62(H) 1.56 - 6.45 x10(9)/L 01/11/2023 9:15 AM CDT FB60 Lymphocytes 1.40 0.95 - 3.07 x10(9)/L 01/11/2023 9:15 AM CDT FB60 Monocytes 1.00(H) 0.26 - 0.81 x10(9)/L 01/11/2023 9:15 AM CDT FB60 Eosinophils 0.54(H) 0.03 - 0.48 x10(9)/L 01/11/2023 9:15 AM CDT FB60 Basophils <0.04 0.01 - 0.08 x10(9)/L 01/11/2023 9:15 AM CDT FB60 Blood (Blood, Venous) 01/11/2023 8:30 AM CDT 01/11/2023 8:30 AM CDT Haseeb Menon Jr., D.O. LAB BLOOD AD D-ON Performing Organization Address City/[facility]/ZIP Co de Phone Number [facility] [address] [place] [address], [facility] FB60 [facility] [place] [address] [place] [address] * (ABNORMAL) Hemoglobin A1c (11/25/2022 2:09 PM CDT) Hemoglobin A1c, B 6.2(H) 4.2 - 5.6 % 11/25/2022 4:40 PM CDT OWAT Comment: Hemoglobin A1c values of 5.7-6.4 percent indicate an increased risk for developing diabetes mellitus. In diabetic patients, HbA1c goals should be discussed with healthcare provider. Blood (Blood, Venous) 11/25/2022 2:09 PM CDT 11/25/2022 3:35 PM CDT Haseeb Menon Jr., D.O. LAB BLOOD AD D-ON [facility] [address] [place] [address], [place] OWAT [facility] [place] [address] [place] [address] * (ABNORMAL) Renal Function Panel (11/25/2022 2:09 PM CDT) [facility] Potassium, P 4.1 3.6 - 5.2 mmol/L 11/25/2022 4:34 PM CDT OWAT Sodium, P 137 135 - 145 mmol/L 11/25/2022 4:34 PM CDT OWAT Chloride, P 99 98 - 107 mmol/L 11/25/2022 4:34 PM CDT OWAT Bicarbonate, P 21(L) 22 - 29 mmol/L 11/25/2022 4:34 PM CDT OWAT Anion Gap, P 17(H) 7 - 15 11/25/2022 4:34 PM CDT OWAT BUN (Blood Urea Nitrogen), P 64(H) 8 - 24 mg/dL 11/25/2022 4:34 PM CDT OWAT Creatinine 4.01(H) 0.74 - 1.35 mg/dL 11/25/2022 4:34 PM CDT OWAT Estimated GFR (eGFR) 15(L) >=60 mL/min/BSA 11/25/2022 4:34 PM CDT OWAT Comment: Estimated GFR calculated using the 2020 CKD_EPI creatinine equation. Calcium, Total, P 7.6(L) 8.8 - 10.2 mg/dL 11/25/2022 4:34 PM CDT OWAT Glucose, P 134 70 - 140 mg/dL 11/25/2022 4:34 PM CDT OWAT Albumin, P 3.2(L) 3.5 - 5.0 g/dL 11/25/2022 4:34 PM CDT OWAT Phosphorus (Inorganic), P 6.0(H) 2.5 - 4.5 mg/dL 11/25/2022 7:56 PM CDT MKTO Blood (Blood, Venous) 11/25/2022 2:09 PM CDT 11/25/2022 3:35 PM CDT Narrative [facility] - 11/25/2022 7:56 PM CDT Specimen Information: Specimen ID: [id number] Specimen Type: Blood Specimen Collection Start Date: 11/25/2022 ??2:09 PM Specimen Received Date: 11/25/2022 ??3:35 PM Specimen ID: [id number] Specimen Type: Blood Specimen Collection Start Date: 11/25/2022 ??2:09 PM Specimen Received Date: 11/25/2022 ??7:10 PM Haseeb Menon Jr., D.O. LAB BLOOD AD D-ON Performing Organization Address City/[facility] Co de Phone Number [facility] [address] [place] [address], [facility] OWAT [facility][note 3] [address] [place] [address] [facility] [address] [place] [address] * (ABNORMAL) Iron and Total Iron-Binding Capacity (11/25/2022 2:09 PM CDT) Iron 55 50 - 150 mcg/dL 11/25/2022 8:08 PM CDT MKTO Total Iron Binding Capacity 198(L) 250 - 400 mcg/dL 11/25/2022 8:08 PM CDT MKTO Percent Saturation 28 14 - 50 % 11/25/2022 8:08 PM CDT MK Blood (Blood, Venous) 11/25/2022 2:09 PM CDT 11/25/2022 7:10 PM CDT Haseeb Menon Jr., D.O. LAB BLOOD AD D-ON Performing Organization Address [facility] Co de Phone Number [facility] [address] [place] [address], [facility] [place] [address] [place] [id number] * Ferritin (11/25/2022 2:09 PM CDT) Ferritin, S 374 31 - 409 mcg/L 11/25/2022 5:12 PM CDT OW Comment: Biotin has been identified by the chief media officer as a potential interfering substance. Higher concentrations of biotin may be found in multivitamins, hair/nail supplements, and workout supplements. If the result does not match clinical observations, repeat testing after patient refrains from the use of supplements for at least 12 hours. Blood (Blood, Venous) 11/25/2022 2:09 PM CDT 11/25/2022 3:35 PM CDT Haseeb Menon Jr., D.O. LAB BLOOD AD D-ON [facility] [address] [place] [address], [facility] OWAT [facility] [place] [address] [place] [address] * (ABNORMAL) CBC with Differential, Blood (11/25/2022 2:09 PM CDT) Hemoglobin 8.7(L) 13.2 - 16.6 g/dL 11/25/2022 3:43 PM CDT OWAT Hematocrit 27.1(L) 38.3 - 48.6 % 11/25/2022 3:43 PM CDT OWAT Erythrocytes 2.73(L) 4.35 - 5.65 x10(12)/L 11/25/2022 3:43 PM CDT OWAT MCV 99.3(H) 78.2 - 97.9 fL 11/25/2022 3:43 PM CDT OWAT RBC Distrib Width 14.1 11.8 - 14.5 % 11/25/2022 3:43 PM CDT OWAT Platelet Count 305 135 - 317 x10(9)/L 11/25/2022 3:43 PM CDT OWAT Leukocytes 9.0 3.4 - 9.6 x10(9)/L 11/25/2022 3:43 PM CDT OWAT Neutrophils 5.58 1.56 - 6.45 x10(9)/L 11/25/2022 3:43 PM CDT OWAT Lymphocytes 1.84 0.95 - 3.07 x10(9)/L 11/25/2022 3:43 PM CDT OWAT Monocytes 0.93(H) 0.26 - 0.81 x10(9)/L 11/25/2022 3:43 PM CDT OWAT Eosinophils 0.60(H) 0.03 - 0.48 x10(9)/L 11/25/2022 3:43 PM CDT OWAT Basophils 0.03 0.01 - 0.08 x10(9)/L 11/25/2022 3:43 PM CDT OWAT Blood (Blood, Venous) 11/25/2022 2:09 PM CDT 11/25/2022 2:09 PM CDT Haseeb Menon Jr., D.O. 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) 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 (HCC) 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) Anemia Of Chronic Renal Disease Acidosis Metabolic Hyperchloremic 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) 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 (HCC) 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) Anemia Of Chronic Renal Disease Acidosis Metabolic Hyperchloremic 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
--- OUTSIDE RECORDS SUMMARY | 2023-06-02 12:33 | XMS_ITS | Encounter Summary ---
Author Name Unknown Organization [facility] Address [address] [place] [address] Care Team Providers Care Piped Pocket Machine Operator Name Role Phone Elsewhere, Pcp Primary Care Provider Unavailabl e Encounter Details Date Type Department Care Team (Latest Contact Info) Description 11/25/2022 1:41 PM CDT - 11/25/2022 11:59 PM CDT Hospital Encounter Department of Laboratory Medicine in [place], [place] [address] [place] [address] Haseeb Menon Jr., D.O. [address] [place] [phone] 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 (HCC); Diabetes Mellitus Type 2 With Diabetic Nephropathy (HCC); Hyperparathyroidism Secondary (HCC); Anemia Of Chronic Renal Disease; Acidosis Metabolic Hyperchloremic; Atherosclerosis Of [place] Ar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 (HCC) Discharge Disposition: Home or Self Care [...] week 03/24/2021 How often do you attend anabaptist or hinduism serv ices? Never 03/24/2021 Do you belong to any clubs o r organizations such as anabaptist groups, unions, fraternal or athletic groups, or [...] Answer Date Recorded PHQ-2 Score 0 10/20/2018 [facility] [place] of Occupat ional Health - Occupational Stress [...] your living situation today? I have a [facility] place to live 10/26/2022 Education Answer Date Recorded What is the highest level of school you have completed or the highest degree you have received? 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 90 tablet 3 07/05/2022 07/05/2023 atorvastatin (LIPITOR) 20 mg tablet Take 1 [...] mg by mouth at bedtime. 0 08/16/2016 ferrous sulfate 325 mg (65 mg iron) [...] TAKE ONE CAPSULE BY MOUTH EVERY DAY CORRECTION 0 01/14/2022 nortriptyline (PAMELOR) 50 mg capsule Take 100 mg by mouth at bedtime. 5 12/06/2017 omeprazole (PriLOSEC) [address] capsule Take 40 mg by mouth every evening. 0 09/25/2015 pramipexole (MIRAPEX) 0.5 mg tablet Take 0.5 mg by mouth at bedtime. [address] tablet Take 325 mg by mouth daily. Take in evening 0 02/16/2023 blood sugar diagnostic (Accu-Chek Guide test strips) strips TEST 6 TIMES DAILY DIRECTED 0 06/16/2021 03/03/2023 calcium citrate (CALCITRATE) 950 mg (200 mg calcium) tablet TAKE FOUR TABLETS BY MOUTH AT BEDTIME (DOSE INCREASE) 300 tablet 3 04/28/2022 03/14/2023 colchicine (COLCRYS) 0.6 mg tablet Take 1 tablet (0.6 mg total) by mouth as directed. For gout flare, take one tab in the evenings until symptoms go away (usually 2-3 days) 0 05/10/2020 02/16/2023 furosemide (LASIX) 40 mg tablet Take 1.5 [...] is eating and activity). 0 03/25/2021 03/03/2023 insulin glargine (Basaglar KwikPen U-100 Insulin) 100 unit/mL (3 mL) injection Inject 35 Units under the skin every evening. 15 mL 0 03/25/2021 02/16/2023 lancets 6 each daily. 600 each 3 03/07/2019 03/03/2023 oxyCODONE (ROXICODONE) 5 mg immediate release tablet Take 5-10 mg by mouth every 6 (six) hours as needed. for pain 0 08/14/2021 02/16/2023 pen needle, diabetic 31 gauge x 5/16 needle Inject 1 Injection under the skin daily. Inject 1 injection under the skin 4 times daily 400 each 3 05/14/2019 03/03/2023 sennosides-docusate sodium (SENOKOT-S) 8.6-50 mg per tablet 1 tablet as needed. 0 05/20/2022 03/21/2023 sodium bicarbonate 650 mg tablet TAKE ONE TABLET BY MOUTH TWICE A DAY 180 tablet 3 01/22/2022 02/01/2023 documented as of this encounter Plan of Treatment Not on file documented as of this encounter Procedures Procedure Name Priority Date/Time Associated Diagnosis Comments RENAL FUNCTION PANEL, S Routine 11/25/2022 2:09 PM CDT 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 (HCC) 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) Anemia Of Chronic Renal Disease Acidosis Metabolic Hyperchloremic Atherosclerosis Of [place] Ar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 (HCC) IRON AND TOT IRON-BINDING CAPACITY, S/P Routine 11/25/2022 2:09 PM CDT 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 (HCC) 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) Anemia Of Chronic Renal Disease Acidosis Metabolic Hyperchloremic Atherosclerosis Of [place] Ar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 (HCC) CBC WITH DIFFERENTIAL, B Routine 11/25/2022 2:09 PM CDT 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 (HCC) 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) Anemia Of Chronic Renal Disease Acidosis Metabolic Hyperchloremic Atherosclerosis Of [place] Ar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 (HCC) HEMOGLOBIN A1C, B Routine 11/25/2022 2:0 9 PM CDT 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 (HCC) 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) Anemia Of Chronic Renal Disease Acidosis Metabolic Hyperchloremic Atherosclerosis Of [place] Ar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 (HCC) FERRITIN, S Routine 11/25/2022 2:09 PM CDT 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 (HCC) 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) Anemia Of Chronic Renal Disease Acidosis Metabolic Hyperchloremic Atherosclerosis Of [place] Ar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 (HCC) documented in this encounter Results * (ABNORMAL) Hemoglobin A1c (11/25/2022 2:09 PM [...] Menon Jr., D.O. LAB BLOOD AD D-ON [facility] [address] [place] [address], [place] OWAT [facility] in [place] [address] [place] [address] * (ABNORMAL) Renal Function Panel (11/25/2022 2:09 PM CDT) Potassium, P 4.1 3.6 - 5.2 mmol/L [...] PM CDT 11/25/2022 3:[address] [facility] - 11/25/2022 7:56 PM CDT Specimen Information: Specimen ID: [id number] Specimen Type: Blood Specimen Collection Start Date: 11/25/2022 ??2:09 PM Specimen Received Date: 11/25/2022 ??3:35 PM Specimen ID: [id number] Specimen Type: Blood Specimen Collection Start Date: 11/25/2022 ??2:09 PM Specimen Received Date: 11/25/2022 ??7:10 PM Haseeb Menon Jr., D.O. LAB BLOOD AD D-ON Performing Organization Address City/[facility] Co de Phone Number [facility] [place] [address], [facility] OWAT [facility] [address] [place] [address] [facility] [address] [place] [phone] * (ABNORMAL) Iron and Total Iron-Binding Capacity (11/25/2022 2:09 PM CDT) Iron 55 50 - 150 mcg/dL 11/25/2022 8:08 PM CDT MKTO Total Iron Binding Capacity 198(L) 250 - 400 mcg/dL 11/25/2022 8:08 PM CDT MKTO Percent Saturation 28 14 - 50 % 11/25/2022 8:08 PM CDT MKTO Blood (Blood, Venous) 11/25/2022 2:09 PM CDT 11/25/2022 7:10 PM CDT Haseeb Menon Jr., D.O. LAB BLOOD AD D-ON Performing Organization Address City/[facility] Co de Phone Number [facility] [address] [place] [address], [facility] [place] [address] [place] [phone] * Ferritin (11/25/2022 2:09 PM CDT) Ferritin, S 374 31 - 409 mcg/L 11/25/2022 5:12 PM CDT OW Comment: Biotin has been identified by the [employer] as a potential interfering substance. Higher concentrations of biotin may be found in multivitamins, hair/nail supplements, and workout supplements. If the result does not match clinical observations, repeat testing after patient refrains from the use of supplements for at least 12 hours. Blood (Blood, Venous) 11/25/2022 2:09 PM CDT 11/25/2022 3:35 PM CDT Haseeb Menon Jr., D.O. LAB BLOOD AD D-ON [facility] [address] [place] [address], [facility] OWAT [facility] [place] [address] [place] [address] * (ABNORMAL) CBC with Differential, Blood (11/25/2022 [...] Menon Jr., D.O. LAB BLOOD AD D-ON [facility] [address], [place] [address], [facility] OWAT [facility] [place] [address] [place] [address] documented in this encounter Visit Diagnoses Diagnosis 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 (HCC) 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) Anemia Of Chronic Renal Disease Acidosis Metabolic Hyperchloremic Atherosclerosis Of [place] Ar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 (HCC) documented in this encounter Additional Health Concerns Assessment Noted Time PHQ-9 Depression Total Score: 3 01/04/20 18 10:38 AM CDT documented as of this encounter Care Teams Piped Pocket Machine Operator Relationship Specialty Start Date End Date Elsewhere, Pcp PCP - General Family Medicine 01/29/20 documented as of this encounter
--- OUTSIDE RECORDS SUMMARY | 2023-06-02 12:33 | XMS_ITS | Encounter Summary ---
Author Name Unknown Organization [facility] Address [address] [place] [address] Care Team Providers Care Customer Solutions Teammate Name Role Phone Elsewhere, Pcp Primary Care Provider Unavailabl e Encounter Details Date Type Department Care Team (Latest Contact Info) Description 01/11/2023 8:19 AM CDT - 01/11/2023 11:59 PM CDT Hospital Encounter Department of Laboratory Medicine in [place], [place] [address] [place] [phone] Haseeb Menon Jr., D.O. [address] [place] [phone] 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 (HCC); Diabetes Mellitus Type 2 With Diabetic Nephropathy (HCC); Hyperparathyroidism Secondary (HCC); Anemia Of Chronic Renal Disease; Acidosis Metabolic Hyperchloremic; Atherosclerosis Of [place] Arteries Of Extremities With Intermittent Claudication Right [...] week 03/24/2021 How often do you attend roman catholic or adventist serv ices? Never 03/24/2021 Do you belong to any clubs o r organizations such as roman catholic groups, unions, fraternal or athletic groups, or [...] Answer Date Recorded PHQ-2 Score 0 10/20/2018 [facility] of Occupat ional Health - Occupational Stress [...] your living situation today? I have a [facility] place to live 10/26/2022 Education Answer Date Recorded What is the highest level of school you have completed or the highest degree you have received? 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) CBC WITH DIFFERENTIAL, B Routine 01/11/2023 8:30 AM CDT 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 (HCC) 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) Anemia Of Chronic Renal Disease Acidosis Metabolic Hyperchloremic 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 LAB BLOOD AD D-ON [facility] [address] [place] [address], [facility] [place] [address] [place] [address] [facility] [address] [place] [address] * (ABNORMAL) CBC with Differential, Blood (01/11/2023 8:30 AM CDT) Pathologist [facility] Hemoglobin 8.6(L) 13.2 - 16.6 g/dL 01/11/2023 [...] CDT 01/11/2023 8:30 AM CDT Haseeb Menon Jr. D.O. 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
--- OUTSIDE RECORDS SUMMARY | 2023-06-02 12:33 | XMS_ITS | Encounter Summary ---
Author Name Unknown Organization [facility] Address [address] [place] [address] Care Team Providers Care Stockholder Name Role Phone Elsewhere, Pcp Primary Care Provider Unavailabl e Encounter Details Date Type Department Care Team (Latest Contact Info) Description 02/14/2023 10:18 AM CDT - 02/14/2023 11:59 PM CDT Hospital Encounter Department of Laboratory Medicine in [place], [place] [address] [place] [address] Haseeb Menon Jr., D.O. [address] [place] [phone] Diabetes Mellitus Type 2 With Other Circulatory Complication Hyperglycemic (HCC); 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 (HCC) Discharge Disposition: Home or Self Care [...] week 03/24/2021 How often do you attend jain or faith serv ices? Never 03/24/2021 Do you belong to any clubs o r organizations such as jain groups, unions, fraternal or athletic groups, or [...] Answer Date Recorded PHQ-2 Score 0 10/20/2018 [facility] [place] of Occupat ional Health - Occupational Stress [...] living situation today? I have a [facility] place to live 10/26/2022 Education Answer Date Recorded What is the highest level of school you have completed or the highest degree you have received? 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 0 01/14/2022 nortriptyline (PAMELOR) 50 mg capsule [...] A DAY 180 tablet 3 02/01/2023 02/01/[address] tablet Take 325 [...] Procedure Name Priority Date/Time Associated Diagnosis Comments QUANTIFERON-TB GOLD PLUS, B Routine 02/14/2023 11:09 AM CDT Diabetes Mellitus Type 2 With Other Circulatory Complication Hyperglycemic (HCC) 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 (HCC) HCV AB SCRN W/REFLEX TO HCV PCR, S Routine 02/14/2023 11:09 AM CDT Diabetes Mellitus Type 2 With Other Circulatory Complication Hyperglycemic (HCC) 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 (HCC) HBC TOTAL AB, SERUM Routine 02/14/2023 11:09 AM CDT Diabetes Mellitus Type 2 With Other Circulatory Complication Hyperglycemic (HCC) 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 (HCC) HBS ANTIBODY, SERUM Routine 02/14/2023 11:09 AM CDT Diabetes Mellitus Type 2 With Other Circulatory Complication Hyperglycemic (HCC) 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 (HCC) HEPATITIS B SURFACE ANTIGEN Routine 02/14/2023 11:09 AM CDT Diabetes Mellitus Type 2 With Other Circulatory Complication Hyperglycemic (HCC) 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 (HCC) documented in this encounter Results * HCV Ab Scrn w/Reflex to HCV PCR, Serum (02/14/2023 11:09 AM CDT) HCV Ab Screen, S Negative Negative 02/15/20 23 3:29 PM CDT MKTO Comment: Biotin has been identified by the grips as a potential interfering substance. Higher concentrations of biotin may be found in multivitamins, hair/nail supplements, and workout supplements. If the result does not match clinical observations, repeat testing after patient refrains from the use of supplements for at least 12 hours. Blood (Blood, Venous) 02/14/2023 11:09 AM CDT 02/14/2023 3:29 PM CDT Narrative [facility] - 02/14/2023 3:29 PM CDT Specimen Information: Specimen ID: [id number] Specimen Type: Blood Specimen Collection Start Date: 02/14/2023 11:09 AM Specimen Received Date: 02/14/2023 ??3:29 PM Specimen ID: [id number] Specimen Type: Blood Specimen Collection Start Date: 02/14/2023 11:09 AM Specimen Received Date: 02/14/2023 ??2:48 PM Haseeb Menon Jr., D.O. LAB MICROBIO LOGY - BLOOD ORDERABLES [facility] [address] [place] [address], [place] MKTO [facility] [place] [address] [place] [address] * HBc Total Ab, Serum (02/14/2023 11:09 AM CDT) HBc Total Ab, S Negative Negative 02/15/2023 9:08 AM CDT [facility] Blood (Blood, Venous) 02/14/2023 11:09 AM CDT 02/15/2023 6:57 AM CDT Haseeb Menon Jr., D.O. LAB MICROBIO LOGY - BLOOD ORDERABLES Performing Organization Address City/[facility]/ZIP Co de Phone Number [facility] [address] [place] [address] [facility] [address] [place] [address] * HBs Antibody, Serum (02/14/2023 11:09 AM CDT) HBs Antibody, S Negative 4:34 PM CDT [facility] Comment: ----REFERENCE VALUE---- Unvaccinated: Negative Vaccinated: Positive HBs Antibody, Quantitative, S <3.50 mIU/mL 02/14/2023 4:34 PM CDT [facility] Comment: ----REFERENCE VALUE---- <8.50: Negative 8.50-11.49: Indeterminate >=11.50: Positive Blood (Blood, Venous) 02/14/2023 11:09 AM CDT 02/14/2023 3:28 PM CDT Haseeb Menon Jr., D.O. LAB MICROBIO LOGY - BLOOD ORDERABLES [facility] [address] [place] [address], [facility] - [facility] [address] [place] [address] * Hepatitis B Surface Antigen (02/14/2023 11:09 AM CDT) [facility] HBs Antigen, S Nonreactive Nonreactive 02/14/2023 4:34 PM CDT [facility] Blood (Blood, Venous) 02/14/2023 11:09 AM CDT 02/14/2023 3:28 PM CDT Haseeb Menon Jr., D.O. LAB MICROBIO LOGY - BLOOD ORDERABLES [facility] [address] [place] [address], [facility] - [address] [address] * QuantiFERON-Tb Gold Plus, Blood (02/14/2023 11:09 AM CDT) [facility] QuantiFERON-TB Gold Plus Result Negative Negative 02/17/2023 [...] 11:09 AM CDT 02/16/2023 11:08 AM CDT Narrative [facility] - 02/17/2023 12:53 PM CDT Specimen Information: Specimen ID: [id number] Specimen Type: Blood Specimen Collection Start Date: 02/14/2023 11:09 AM Specimen Received Date: 02/16/2023 11:08 AM Specimen ID: [id number] Specimen Type: Blood Specimen Collection Start Date: 02/14/2023 11:09 AM Specimen Received Date: 02/16/2023 11:08 AM Specimen ID: [id number] Specimen Type: Blood Specimen Collection Start Date: 02/14/2023 11:09 AM Specimen Received Date: 02/16/2023 11:08 AM Specimen ID: [id number] Specimen Type: Blood Specimen Collection Start Date: 02/14/2023 11:09 AM Specimen Received Date: 02/16/2023 11:08 AM Haseeb Menon Jr. DFeiO. LAB MICROBIO LOGY - BLOOD ORDERABLES [facility] [address] [place] [address], [facility] [place] [address] documented in this encounter Visit Diagnoses Diagnosis Diabetes Mellitus Type 2 With Other Circulatory Complication Hyperglycemic (HCC) 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 (HCC) documented in this encounter Additional Health Concerns Assessment Noted Time PHQ-9 Depression Total Score: 3 01/04/20 18 10:38 AM CDT documented as of this encounter Care Teams Stockholder Relationship Specialty Start Date End Date Elsewhere, Pcp PCP - General Family Medicine 01/29/20 documented as of this encounter
--- OUTSIDE RECORDS SUMMARY | 2023-06-02 12:33 | XMS_ITS | Encounter Summary ---
Author Name Unknown Organization [facility] Address [address] [place] [id number] Care Team Providers Care Herbologist Name Role Phone Elsewhere, Pcp Primary Care Provider Unavailabl e Encounter Details Date Type Department Care Team (Latest Contact Info) Description 02/16/2023 7:12 AM CDT - 02/16/2023 6:10 PM CDT Hospital Encounter Outpatient Surgery Unit in [place], [place] [address] [place] [address] Tee Celeste M.D., Ph.D. [address] [place] [phone] Discharge Disposition: Home or Self Care Social [...] week 03/24/2021 How often do you attend latter-day or samaritan serv ices? Never 03/24/2021 Do you belong to any clubs o r organizations such as latter-day groups, unions, fraternal or athletic groups, or [...] Answer Date Recorded PHQ-2 Score 0 10/20/2018 [facility] - Occupational [...] your living situation today? I have a [facility] place to live 10/26/2022 Education Answer Date Recorded What is the highest level of school you have completed or the highest degree you have received? 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 0 01/14/2022 nortriptyline (PAMELOR) 50 mg capsule [...] Filtration Rate Less Than 15 (HCC) A certified nursing assistant instructor actively participated and was necessary for one [...] LAB POCT ORDERABLES- MANUAL Performing Organization Address City/[facility]/ZIP Co de Phone Number [facility] [address] [place], [place] [address] PCDE [facility] POC 200 [place] [address] * (ABNORMAL) Glucose, POCT (02/16/2023 3:15 PM CDT) Glucose, POCT, B 191(H) 70 - 140 mg/dL 02/16/2023 3:17 PM CDT PCDE Site Capillary 02/16/2023 3:17 PM CDT PCDE Blood 02/16/2023 3:15 PM CDT 02/16/2023 3:17 PM CDT Unknown Provider LAB POCT ORDERABLES- MANUAL Performing Organization Address City/[facility] Co de Phone Number [facility] [address] [place] [address], [facility] PCDE [facility] POC [address] [place] [address] * DX Abdomen Portable Anterior Posterior 1 [...] Glucose, POCT (02/16/2023 2:15 PM CDT) Pathologist [facility] Glucose, POCT, B 173(H) 70 - 140 mg/dL 02/16/2023 2:17 PM CDT PCDE Site Capillary 02/16/2023 2:17 PM CDT PCDE Blood 02/16/2023 2:15 PM CDT 02/16/2023 2:17 PM CDT Unknown Provider LAB POCT ORDERABLES- MANUAL Performing Organization Address City/[facility]/ZIP Co de Phone Number [facility] [address] [place] [address], [facility] PCDE [facility] POC [address] [place] [address] * (ABNORMAL) Phosphorus Inorganic (02/16/2023 1:04 PM CDT) [facility] Phosphorus (Inorganic), S 6.2(H) 2.5 - 4.5 mg/dL 02/16/2023 1:58 PM CDT DTL Blood (Blood, Venous) 02/16/2023 1:04 PM CDT 02/16/2023 1:41 PM CDT Uriel Lin M.D. LAB BLOOD ADD-ON [facility] [address] [place] [address], [facility] DTL [facility] [address] [place] [address] * (ABNORMAL) CBC without Differential (02/16/2023 1:04 PM CDT) Pathologist [facility] Hemoglobin 8.7(L) 13.2 - 16.6 g/dL 02/16/2023 [...] CDT Uriel Lin M.D. LAB BLOOD ADD-ON [facility] [address] [address], [facility] METH [facility] [address] [place] [address] * (ABNORMAL) Basic Metabolic Panel (02/16/2023 1:04 PM CDT) [facility] Potassium, P 3.6 3.6 - 5.2 mmol/L [...] M.D. LAB BLOOD ADD-ON Performing Organization Address City/[facility]/ZIP Co de Phone Number [facility] [address] [place] [address], [facility] METH [facility] [address] [place] [address] * Glucose, POCT (02/16/2023 12:04 PM CDT) Glucose, POCT, B 108 70 - 140 mg/dL 02/16/2023 12:07 PM CDT PCDE Site Capillary 02/16/2023 12:07 PM CDT PCDE Blood 02/16/2023 12:0 4 PM CDT 02/16/2023 12:07 PM CDT Unknown Provider LAB POCT ORDERABLES- MANUAL [facility] [address] [place] [address], [facility] PCDE [facility] POC [address] [place] [address] * Glucose, POCT (02/16/2023 10:23 AM CDT) Glucose, POCT, B 112 70 - 140 mg/dL 02/16/2023 10:33 AM CDT PCDE Site Capillary 02/16/2023 10:33 AM CDT PCDE Blood 02/16/2023 10:2 3 AM CDT 02/16/2023 10:33 AM CDT Unknown Provider LAB POCT ORDERABLES- MANUAL [facility] [address] [place] [address], [facility] PCDE [facility] [address] [place] [address] * Glucose, POCT (02/16/2023 8:23 AM CDT) [facility] Glucose, POCT, B 106 70 - 140 mg/dL 02/16/2023 8:24 AM CDT PCDE Blood 02/16/2023 8:23 AM CDT 02/16/2023 8:25 AM CDT Unknown Provider LAB POCT ORDERABLES- MANUAL Performing Organization Address City/[facility] Co de Phone Number [facility] [address] [place] [address], [facility] PCDE [facility] P[facility] [address] [place] [address] documented in this encounter Visit Diagnoses Diagnosis 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 oxyCODONE IR tablet 10 mg (ROXICODONE) 10 [...] surgical 1114 (Given - Provid er: Glenn Sarabia APRN, CLINICAL ASSOC) insulin aspart U-100 injection 2 Units (NovoLOG FlexPen) (COMPLETED) 2 Units, subcutaneous, Once, On Tue02/16/23 at 1515, For 1 dose, PACU & Post-Op 1526 (Given - Provid er: Aubree T Rindels, R.N.) ketamine injection 5 mg (KETALAR) (COMPLETED) 5 mg, intravenous, Once, On Tue02/16/23 at 1515, For 1 dose, PACU (only), Hold in the setting of neurocognitive disorders or a history hallucinations. 1454 (Given - Provid er: Aubree Chávez R.N.) Continuous Medication Order 02/14/2023 02/15/2023 02/16/2023 Lactated Ringer's 20 mL/hr, intravenous, Continuous, Starting on Tue02/16/23 at 1315, PACU & Post-Op 1318 (Continued from OR - Provider: Aubree Chávez R.N. - Comment: 350 IN BAG, placed on [...] 1316 (Given - Provid er: Aubree Chávez RFeiN.)1334 (Given - Provider: Aubree Chávez R.N.)1335 (Given - Provider: Aubree Chávez R.N.)1427 (Given - Provider: Vikram BobbyN.) insulin regular 1 Unit/mL in NaCl 0.9% [...] Alternativ e - Provider: Marie Taveras R.N., C.M.S.R.N.) Linked Groups Order Group 1: acetaminophen tablet [...] documented as of this encounter Care Teams Herbologist Relationship Specialty Start Date End Date Elsewhere, Pcp PCP - General Family Medicine 01/29/20 documented as of this encounter
--- OUTSIDE RECORDS SUMMARY | 2023-06-02 12:33 | XMS_ITS | Encounter Summary ---
Author Name Unknown Organization [facility] Address [address] [place] [address] Care Team Providers Care Straddle Carrier Operator Name Role Phone Elsewhere, Pcp Primary Care Provider Unavailabl e Encounter Details Date Type Department Care Team (Late st Contact Info) Description 02/08/2023 Documentation Division of Nephrology and Hypertension in [place], [place] [address] [place] [address] Haseeb Menon Jr., D.O. [address] [place] [address] Social History Tobacco Use Types Packs/Day Years [...] How often do you attend congregation or jehovah's witness serv ices? Never 03/24/2021 Do you belong [...] Answer Date Recorded PHQ-2 Score 0 10/20/2018 [facility] - Occupational Stress Questionnaire Answer Date [...] your living situation today? I have a [facility] place to live 10/26/2022 Education Answer Date Recorded What is the highest level of school you have completed or the highest degree you have received? 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 - 02/08/2023 4:48 PM CDT Pre anesthetic medical evaluation I had visited with him on the 18 of January and assured that he is able to ascend a flight of stairs easily without being short of breath. He affirmed this was the case. I reviewed his chest x-ray and ECG performed in mid November 2022. He has had no issues previously withgeneral anesthesia, and no active cardiopulmonary disease. He has had no prior reactions to anesthesia. He is medically optimized for general anesthesia for placement of a peritoneal dialysis catheter. documented in this encounter Plan of Treatment Not on file documented as of this encounter Visit Diagnoses Not on filedocumented in this encounter Additional Health Concerns Assessment Noted Time PHQ-9 Depression Total Score: 3 01/04/20 18 10:38 AM CDT documented as of this encounter Care Teams Straddle Carrier Operator Relationship Specialty Start Date End Date Elsewhere, Pcp PCP - General Family Medicine 01/29/20 documented as of this encounter
--- OUTSIDE RECORDS SUMMARY | 2023-06-02 12:34 | XMS_ITS | Encounter Summary ---
Author Name Unknown Organization [facility] Address [address] [place] [address] Care Team Providers Care Maintenance Mechanic Engine Name Role Phone Elsewhere, Pcp Primary Care Provider Unavailabl e Reason for Referral * Outpatient (Routine) - Closed Specialty Diagnoses / Procedures Referred By Contac t Referred To Contact Diagnoses 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 (HCC) 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) Procedures DX Chest AP or PA and Lateral 2 Views Haseeb Menon Jr., D.O. [address] [place] [address] [facility] Referral ID Status Reason Start Date Expiration Date Visits Re quested Visits Authorized [id number] Closed 09/14/2022 09/14/2023 1 1 * Outpatient (Routine) - Closed Specialty Diagnoses / Procedures Referred By Contac t Referred To Contact Diagnoses 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 (HCC) 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) Procedures ECG 12 Lead Haseeb Menon Jr., D.O. [address] [place] [address] [facility] Referral ID Status Reason Start Date Expiration Date Visits Re quested Visits Authorized [id number] Closed 09/14/2022 09/14/2023 1 1 * Outpatient (Routine) - Closed Specialty Diagnoses / Procedures Referred By Robi t Referred To Contact Nephrology and Hypertension / Dialysis Diagnoses 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 (HCC) 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) Haseeb Menon Jr., D.O. [address] [place] [address] [facility] Referral ID Status Reason Start Date Expiration Date Visits Re quested Visits Authorized [id number] Closed 09/14/2022 09/14/2023 1 1 Encounter Details Date Type Department Care Team (Late st Contact Info) Description 09/14/2022 Orders Only Division of Nephrology and Hypertension in [place], [place] [address] [place] [address] Haseeb Menon Jr., D.O. [address] [place] [address] 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 (HCC) (Primary Dx); Diabetes Mellitus Type 2 With Diabetic Nephropathy (HCC); Hyperparathyroidism Secondary (HCC) Social History Tobacco Use Types Packs/Day Years Used Date Smoking Tobacco: Every Day Cigarettes 1 35 Started: 05/16/1983 Smokeless Tobacco: Never Comments:has tried to quit m any times, wishes no intervention at this time Alcohol Use Standard Drinks/Week Comments Yes 0 (1 standard drink = 0.6 oz pur e alcohol) yearly Social Connection and Isolation Panel [NHANES] A nswer Date Recorded In a typical week, how many times do you talk on the phone with family, friends, or neighbors? Twice a week 03/24/2021 How often do you get together with friends or re latives? Once a week 03/24/2021 How often do you attend buddhist or confucianist serv ices? Never 03/24/2021 Do you belong to any clubs o r organizations such as buddhist groups, unions, fraternal or athletic groups, or [...] like food, housing, medical care, and heating? Somewhat hard 03/24/2021 PHQ-2 Answer Date Recorded PHQ-2 Score 0 10/20/2018 [facility]at ional Health - Occupational Stress [...] exercise (like a brisk walk)? 0 days 03/24/2021 On average, how many minutes do you engage in exercise at this level? 0 min 03/24/2021 Hunger Vital Sign Answer Date Recorded Within the past 12 months, y ou worried that your food would run out before you got the money to buy more. Never true 03/24/20 21 Within the past 12 months, t he food you bought just didn't last and you didn't have money to get more. Never true 03/24/2021 PRAPARE - Transportation Answer Date Re corded In the past 12 months, has l ack of transportation kept you from medical appointments or from getting medications? No 01/2021 In the past 12 months, has l ack of transportation kept you from meetings, work, or from getting things needed for daily living? No 03/24/2021 Housing Stability Vital Sign Answer Александр e Recorded In the last 12 months, was t here a time when you were not able to pay the mortgage or rent on time? No 03/24/2021 In the last 12 months, how many places have you lived? 1 03/24/2021 In the last 12 months, was t here a time when you did not have a steady place to sleep or slept in a usp (including now)? No 03/24/2021 Nutrition Answer Date Recorded Nutrition: EVOO Fat Source Yes 03/24 On average, how many serving s of fruits and vegetables do you eat per day (serving size is equal to 1 cup or approximately the size of a tennis ball)? 2-3 03/24/2021 Dental Answer Date Recorded Dental: Regular Dentist No 05/15/20 22 Employment Answer Date Recorded Employment status Retired 03/24/2021 Education Answer Date Recorded What is the highest level of school you have completed or the highest degree you have received? 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 Gender Identity Male 08/31/2019 2:40 PM CDT Sexual Orientation Straight 08/31/2019 2: 40 PM CDT documented as of this encounter Plan of Treatment Scheduled Referrals Name Type Priority Associated Diagnoses Orde r Schedule Dialysis - Hemodialysis access consult (clinic) Outpatient Referral Routine 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 (HCC) 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) Expected: 09/14/2022 (Approximate), Expires: 12/16/2023 documented as of this encounter Results * ECG 12 Lead (11/17/2022 12:11 PM CDT) Ventricular Rate ECG/Min 83 BPM MUSE GA Interval 162 ms MUSE QRSD Interval 134 ms MUSE QT Interval 426 ms MUSE QTC Interval 500 ms MUSE P [place] 67 degrees MUSE R [place] -15 degrees MUSE T Wave [place] 14 degrees MUSE 11/17/2022 12:1 1 PM CDT 11/17/2022 12:20 PM CDT Impressions MUSE - 11/17/2022 12:20 PM CDT Normal sinus rhythm Right bundle branch block Prolonged QT When compared with ECG of 23-FEB-2022 09:36, QT has lengthened Reviewed by JUAREZ Mohan Narrative Procedure Note Jose Jordan M.B.B.S. - 11/17/2022 IMPRESSION: Normal sinus rhythm Right bundle branch block Prolonged QT When compared with ECG of 23-FEB-2022 09:36, QT has lengthened Reviewed by JUAREZ Mohan Haseeb Menon Jr., D.O. ECG ORDERABL ES MUSE NA * DX Chest AP or PA and Lateral 2 Views (11/17/2022 11:33 AM CDT) Anatomical Region Laterality Modality Chest, Thoracic RST LOS, Tho racic ARZ LOS, Thoracic FLA LOS N/A Digital Radiography 11/17/2022 11:3 6 AM CDT Impressions 11/17/2022 11:39 AM CDT Comparison made radiograph dated 05/09/2020. Borderline enlarged cardiac silhouette is again noted. Aortic calcifications. Mild bibasilar atelectasis/scarring. Resolution of previously seen small bilateral pleural effusions. Degenerative changes of the spine. Narrative 11/17/2022 11:39 AM CDT EXAM: ??DX CHEST AP OR PA AND LATERAL 2 VIEWS Procedure Note Ifeoma Ball M.D. - 11/17/2022 EXAM: DX CHEST AP OR PA AND LATERAL 2 VIEWS IMPRESSION: Comparison made radiograph dated 05/09/2020. Borderline enlarged cardiacsilhouette is again noted. Aortic calcifications. Mild bibasilar atelectasis/scarring.Resolution of previously seen small bilateral pleural effusions. Degenerative changes of thespine. Haseeb Menon Jr., D.O. IMG DIAGNOST IC IMAGING PROCEDURES documented in this encounter Visit Diagnoses Diagnosis 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 (HCC)- Primary 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) 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 (HCC) 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) documented in this encounter Additional Health Concerns Assessment Noted Time PHQ-9 Depression Total Score: 3 01/04/20 18 10:38 AM CDT documented as of this encounter Care Teams Maintenance Mechanic Engine Relationship Specialty Start Date End Date Elsewhere, Pcp PCP - General Family Medicine 01/29/20 documented as of this encounter
--- OUTSIDE RECORDS SUMMARY | 2023-06-02 12:34 | XMS_ITS | Encounter Summary ---
Author Name Unknown Organization [facility] Address [address] [place] [address] Care Team Providers Care Firer Marine Name Role Phone Elsewhere, Pcp Primary Care Provider Unavailabl e Reason for Visit * Reason Onset Date Comments Txp Initial RN Phone Interview 09/21/2022 Encounter Details Date Type Department Care Team (Latest Contact Info) Description 09/21/2022 Clinical Communication [facility] [place], [place] [address] [place] [address] Regina Basurto R.N., C.C.T.C. [address] [place] [phone] Txp Initial RN Phone Interview Social History Tobacco Use Types Packs/Day Years [...] week 03/24/2021 How often do you attend temple or cheondoism serv ices? Never 03/24/2021 Do you belong to any clubs o r organizations such as temple groups, unions, fraternal or athletic groups, or [...] Answer Date Recorded PHQ-2 Score 0 10/20/2018 [facility] Occupat ional Health - Occupational Stress [...] a [place] [facility] [place] (including now)? 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 - 09/22/2022 9:07 AM CDT Information Discussed Spoke to patient by phone to let him know that his case was reviewed and that we will not be offering him an evaluation. It was felt that he was not a candidate for transplant due to cardiovascular and occlusive iliac disease. PLAN Disposition/Recommendation: Not a transplant candidate Information/Education: patient/caller able to teach back Caller agreeable to plan of care: yes The following references were used: nursing clinical judgement * Telephone Encounter - Regina Basurto R.N. - 09/21/2022 11:23 AM CDT 72 yo male with hx of CKD secondary to DM Type 2 and hypertension. Hx of PAD and iliac stents. Stenting done at [facility] and images in eads. Hx of CVA 15-20 years ago. Recently quit smoking. Lower extremity neuropathy. Has had toes amputated which causes balance issues and walks with cane when out ofhome. Chronic pain related to neuropathy and take oxycontin 5 mg and takes 0 to 6 tabs per day. Uncertain if he will have a living donor. Please provide triage recommendations: 1. Unsuitable candidate based on preliminary records for the following reason 2. Need more records 3. Bring for face to face consult only 4. Bring for full evaluation A. If full evaluation recommended, what additional consults and/or tests need to be prescheduled? * Telephone Encounter - Regina Basurto R.N. - 09/21/2022 11:11 AM CDT Virtual Visits Included: Yes Obtained Social Security: No Informed of COVID vaccine requirement: Yes Supplier Quality Manager Utilized: No Phone Screen Type: Kidney Completed the following phone screen: Renal Diagnosis/Disease: Diabetes Mellitus, Type 2. Height: 5'9 Weight: 180 BMI: 26.6 If BMI >35, answer the following questions: - Patient reported highest weight: - Patient reported lowest weight: Have you had weight loss surgery? No - If yes, how much weight lost? Bariatrics benefit check submitted? [] Yes [] No (Benefit check not needed for Medicare or [facility] Insurance) Do you know your GFR? Yes, GFR is 18 Allergies: Yes (add allergies in Epic) Bactrim/sulfa Allergy? No Previous Transplants? No Evaluated elsewhere? No Currently Listed at another Transplant Center: No If yes: Center Name: Coordinator Name: Contact Number: Kidney History: Anuric: No Oliguric (decreased urine output): No Dialysis: No Kidney Stones: No UTI History: No Diabetes History: Type II Age of Onset 37 Treatment: Insulin pump and CGM Colonoscopy: Yes Facility [facility] EGD: No Mammo: NA Pap: NA Cardiovascular History: HTN: Yes MD: No CVA/TIA: Yes mini stroke 15-20 years ago; no residual CHF: No CAD: No CABG: No Arrhythmias: No Implanted Devices: No PVD: Yes Amputations: Yes toes Blood Clotting disorders: No DVT/PE: No Pt on Anticoagulation: No Additional cardiac testing? No Misc Medical History: Abdominal Aortic Aneurysm: No Abdominal Imaging in the last year (CT A/P): No COPD: No SANJU: No On Oxygen?: No Cancer History: No Infectious Disease History: NA Psychiatric History: Yes Depression Alcohol Use: No Comment: Tobacco Use: Prior/Quit; Quit 04/2022 smoked 1 ppd. Drug Use: No Comment: Marijuana Use: No Chronic Pain: Yes Opioid Use: Yes Comment: Oxycontin 5 mg; takes 2 at a time; takes 0-6 per day Current living arrangement: House Do you live alone? No Assistive devices? Cane Any outside assistance: NA Caregiver: Potential Living Donors: Unknown Prior to starting the phone screen process, the following information was verbalized to educate thepatient on the Evaluation Process. Received authorization for kidney transplant referral. Information for Kidney, Kidney/Pancreas, andPancreas Transplant Candidates [id number] was reviewed with the patient via telephone call. Confirmed Onesimo Walton's interest in pursuing a kidney transplant evaluation at [facility]. The patient verbalized understanding of the information and was given the opportunity to ask questions which were answered to Onesimo Walton's satisfaction. Patient agrees to proceed with the transplant evaluation and consents to HIV testing. documented in this encounter Plan of Treatment Not on file documented as of this encounter Visit Diagnoses Not on filedocumented in this encounter Additional Health Concerns Assessment Noted Time PHQ-9 Depression Total Score: 3 01/04/20 18 10:38 AM CDT documented as of this encounter Care Teams Firer Marine Relationship Specialty Start Date End Date Elsewhere, Pcp PCP - General Family Medicine 01/29/20 documented as of this encounter
--- OUTSIDE RECORDS SUMMARY | 2023-06-02 12:34 | XMS_ITS | Encounter Summary ---
Author Name Unknown Organization [facility] Address [address] [place] [address] Care Team Providers Care Information Resources Director Name Role Phone Elsewhere, Pcp Primary Care Provider Unavailabl e Encounter Details Date Type Department Care Team (Latest Contact Info) Description 11/17/2022 10:28 AM CDT - 11/17/2022 11:17 AM CDT Hospital Encounter Department of Laboratory Medicine and Pathology, [facility] in [place], [place] [address] [place] [address] Haseeb Menon Jr., D.O. [address] [place] [address] 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 [...] week 03/24/2021 How often do you attend evangelical or methodist serv ices? Never 03/24/2021 Do you belong to any clubs o r organizations such as evangelical groups, unions, fraternal or athletic groups, or [...] PHQ-2 Score 0 10/20/2018 [facility] of Occupat ional Health - Occupational Stress [...] your living situation today? I have a [facility] place to live 10/26/2022 Education Answer Date Recorded What is the highest level of school you have completed or the highest degree you have received? 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 Gender Identity Male 08/31/2019 2:40 PM CDT [...] TAKE ONE CAPSULE BY MOUTH EVERY DAY BUSINESS MACHINES TEACHER 0 01/14/2022 nortriptyline (PAMELOR) 50 mg capsule [...] Procedure Name Priority Date/Time Associated Diagnosis Comments HCV AB SCRN W/REFLEX TO HCV PCR, S Routine 11/17/2022 11:05 AM CDT 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 (HCC) HBC TOTAL AB, SERUM Routine 11/17/2022 1 1:05 AM CDT 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 (HCC) HBS ANTIBODY, SERUM Routine 11/17/2022 1 1:05 AM CDT 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 (HCC) HEPATITIS B SURFACE ANTIGEN Routine 11/17/2022 11:05 AM CDT 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 (HCC) QUANTIFERON-TB GOLD PLUS, B Routine 11/17/2022 11:04 AM CDT 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 (HCC) documented in this encounter Results * HBs Antibody, Serum (11/17/2022 11:05 AM CDT) Pathologist [facility] HBs Antibody, S Negative 11/17/2022 9:12 PM CDT [facility] Comment: Patient is presumed to be not immune to infection with HBV. ----REFERENCE VALUE---- Unvaccinated: Negative Vaccinated: Positive HBs Antibody, Quantitative, S <5.0 mIU/mL 11/17/2022 9:12 PM CDT [facility] Comment: ----REFERENCE VALUE---- Unvaccinated: <5.0 Vaccinated: >=12.0 Blood (Blood, Venous) 11/17/2022 11:05 AM CDT 11/17/2022 4:58 PM CDT Haseeb Menon Jr., D.O. LAB MICROBIO LOGY - BLOOD ORDERABLES [facility] [address] [place] [address] [place] [address] * Hepatitis B Surface Antigen (11/17/2022 11:05 AM CDT) [facility] HBs Antigen, S Negative Negative 11/17/2022 8:51 PM CDT [facility] Blood (Blood, Venous) 11/17/2022 11:05 AM CDT 11/17/2022 2:53 PM CDT Haseeb Menon Jr., D.O. LAB MICROBIO LOGY - BLOOD ORDERABLES [facility] [address] [place] [address] [facility] [address] [place] [address] * HBc Total Ab, Serum (11/17/2022 11:05 AM CDT) [facility] HBc Total Ab, S Negative Negative 11/17/2022 9:12 PM CDT [facility] Blood (Blood, Venous) 11/17/2022 11:05 AM CDT 11/17/2022 4:58 PM CDT Haseeb Menon Jr., D.O. LAB MICROBIO LOGY - BLOOD ORDERABLES Performing Organization Address [facility] Co de Phone Number [place] [phone] [place] [address] [place] [address] * HCV Ab Scrn w/Reflex to HCV PCR, Serum (11/17/2022 11:05 AM CDT) [facility] HCV Ab Screen, S Negative Negative 11/17/2022 9:09 PM CDT [facility] Comment:Icctuo-wm-mdvtbo rat io is <1.00. Blood (Blood, Venous) 11/17/2022 11:05 AM CDT 11/17/2022 2:53 PM CDT Haseeb Menon Jr., D.O. LAB MICROBIO LOGY - BLOOD ORDERABLES Performing Organization Address [facility] de Phone Number [place] [phone] [place] [address] [place] [address] * QuantiFERON-Tb Gold Plus, Blood (11/17/2022 11:04 AM CDT) [facility] QuantiFERON-TB Gold Plus Result Negative Negative 11/18/2022 10:55 AM CDT [facility] Comment: No interferon-gamma response to M. tuberculosis [...] <0.35 IU/mL. TB1 Ag minus Nil Result 0.01 IU/mL 11/18/2022 10:55 AM CDT [facility] TB2 Ag minus Nil Result 0.02 IU/mL 11/18/2022 10:55 AM CDT [facility] Mitogen minus Nil Result 9.94 IU/mL 11/18/2022 10:55 AM CDT [facility] Nil Result 0.06 IU/mL 11/18/2022 10:55 AM CDT [facility] Blood (Blood, Venous) 11/17/2022 11:04 AM CDT 11/17/2022 1:50 PM CDT Narrative [facility] - 11/18/2022 10:55 AM CDT Specimen Information: Specimen ID: [id number] Specimen Type: Blood Specimen Collection Start Date: 11/17/2022 11:04 AM Specimen Received Date: 11/17/2022 ??1:50 PM Specimen ID: [id number] Specimen Type: Blood Specimen Collection Start Date: 11/17/2022 11:05 AM Specimen Received Date: 11/17/2022 ??1:50 PM Specimen ID: [id number] Specimen Type: Blood Specimen Collection Start Date: 11/17/2022 11:05 AM Specimen Received Date: 11/17/2022 ??1:50 PM Specimen ID: [id number] Specimen Type: Blood Specimen Collection Start Date: 11/17/2022 11:04 AM Specimen Received Date: 11/17/2022 ??1:50 PM Haseeb Menon Jr., D.O. LAB MICROBIO LOGY - BLOOD ORDERABLES [facility] [address] [place] [address] [facility] [address] [place] [address] documented in this encounter Visit Diagnoses Diagnosis 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 (HCC) documented in this encounter Additional Health Concerns Assessment Noted Time PHQ-9 Depression Total Score: 3 01/04/20 18 10:38 AM CDT documented as of this encounter Care Teams Information Resources Director Relationship Specialty Start Date End Date Elsewhere, Pcp PCP - General Family Medicine 01/29/20 documented as of this encounter
--- OUTSIDE RECORDS SUMMARY | 2023-06-02 12:34 | XMS_ITS | Encounter Summary ---
Author Name Unknown Organization [facility] Address [address] [place] [address] Care Team Providers Care Desizing Machine Operator Head End Name Role Phone Elsewhere, Pcp Primary Care Provider Unavailabl e Encounter Details Date Type Department Care Team (Late st Contact Info) Description 11/05/2022 Clinical Communication Division of Nephrology and Hypertension in [place], [place] [address] [place] [address] Haseeb Menon Jr., D.O. [address] [place] [address] Social History Tobacco Use Types Packs/Day Years [...] week 03/24/2021 How often do you attend religion or temple serv ices? Never 03/24/2021 Do you belong to any clubs o r organizations such as religion groups, unions, fraternal or athletic groups, or [...] Answer Date Recorded PHQ-2 Score 0 10/20/2018 [facility] - Occupational Stress Questionnaire Answer Date [...] your living situation today? I have a [facility] place to live 10/26/2022 Education Answer Date Recorded What is the highest level of school you have completed or the highest degree you have received? 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
--- OUTSIDE RECORDS SUMMARY | 2023-06-02 12:34 | XMS_ITS | Encounter Summary ---
Author Name Unknown Organization [facility] Address [address] [place] [address] Care Team Providers Care Blunger Name Role Phone Elsewhere, Pcp Primary Care Provider Unavailabl e Encounter Details Date Type Department Care Team (Late st Contact Info) Description 10/15/2022 Clinical Communication Division of Nephrology and Hypertension in [place], [place] [address] [place] [address] Farrah Barnes M.D., Ph.D. [address] [place] [address] Social History Tobacco Use Types Packs/Day Years [...] week 03/24/2021 How often do you attend synagogue or holiness serv ices? Never 03/24/2021 Do you belong to any clubs o r organizations such as synagogue groups, unions, fraternal or athletic groups, or [...] Answer Date Recorded PHQ-2 Score 0 10/20/2018 [facility] of Occupat ional Health - [...] or slept in a jail (including now)? 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 - 10/15/2022 1:39 PM CDT I have contacted Mr. Walton to discuss his most recent labs done today. His creatinine is slightlyhigher than his last values done at [facility], likely a fluctuation within his new baseline. His BUN isimproved. Rest of electrolytes are acceptable. He continues to have hyperphosphatemia in the setting of chronic kidney disease stage 4. His corrected calcium level is at goal. He was appreciative of the call and discussion of his labs. No urgent changes are required in his therapy at this moment. Patient is looking forward to seeing Dr. Menon in clinic in 2 weeks from now. All questions were answered Vivian Romero M.D., Ph.D. documented in this encounter Plan of Treatment Not on file documented as of this encounter Visit Diagnoses Not on filedocumented in this encounter Additional Health Concerns Assessment Noted Time PHQ-9 Depression Total Score: 3 01/04/20 18 10:38 AM CDT documented as of this encounter Care Teams Blunger Relationship Specialty Start Date End Date Elsewhere, Pcp PCP - General Family Medicine 01/29/20 documented as of this encounter
--- OUTSIDE RECORDS SUMMARY | 2023-06-02 12:34 | XMS_ITS | Encounter Summary ---
Author Name Unknown Organization [facility] Address [address] [place] [address] Care Team Providers Care Packaging Sales Representative Name Role Phone Elsewhere, Pcp Primary Care Provider Unavailabl e Encounter Details Date Type Department Care Team (Late st Contact Info) Description 11/01/2022 Documentation Division of Nephrology and Hypertension in [place], [place] [address] [place] [phone] Deanna Dias M.SFeiN., R.N. [address] [place] [phone] Social History Tobacco Use Types Packs/Day Years [...] week 03/24/2021 How often do you attend protestant or rastafari serv ices? Never 03/24/2021 Do you belong to any clubs o r organizations such as protestant groups, unions, fraternal or athletic groups, or [...] Date Recorded PHQ-2 Score 0 10/20/2018 [facility] of Occupat ional Health - [...] the money to buy more. Never true 06/13/20 23 Within the past 12 months, t [...] your living situation today? I have a [facility] place to live 10/26/2022 Education Answer Date Recorded What is the highest level of school you have completed or the highest degree you have received? 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 - 11/01/2022 3:[address] Menon CHIEF COMPLAINT/PURPOSE OF VISIT REASON FOR REFERRAL: Needs consideration for peritoneal dialysis catheter placement HISTORY OF PRESENT ILLNESS PERTINENT PROCEDURAL HISTORY: 72 y.o., male, referred by Dr. Menon for consideration of peritoneal dialysis catheter placement. 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 His eGFR is 18 mL/min on 09/06/22 and Cystatin C = 19 on 11/04/21. He is not yet ondialysis. Patient's peritoneal dialysis will be orchestrated through the [facility] dialysissystem per Dr. Menon note on 10/26/22. PACEMAKER: None found. DIABETES: DM2 - Takes Novolog TID and Basaglar Q evening. ANTICOAGULATION: Takes 325 mg Aspirin, but no Coumadin, Plavix, Aggrenox, Dabigatran or Xarelto. BMI: Body mass index is 26.58 kg/m??. TRANSPLANT STATUS: Ineligible as of 09/21/22 per transplant. IMPRESSION/REPORT/PLAN Surgeon: Patient seen by Dr. Celeste Plan: Peritoneal dialysis catheter placement within approximately 6 weeks from starting dialysis per Dr. Celeste discussion with patient and note from consult today. documented in this encounter Plan of Treatment Not on file documented as of this encounter Visit Diagnoses Not on filedocumented in this encounter Additional Health Concerns Assessment Noted Time PHQ-9 Depression Total Score: 3 01/04/20 18 10:38 AM CDT documented as of this encounter Care Teams Packaging Sales Representative Relationship Specialty Start Date End Date Elsewhere, Pcp PCP - General Family Medicine 01/29/20 documented as of this encounter
--- OUTSIDE RECORDS SUMMARY | 2023-06-02 12:34 | XMS_ITS | Encounter Summary ---
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 [address] [place] [address] 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 (HCC); Diabetes Mellitus Type 2 With Diabetic Nephropathy (HCC); Hyperparathyroidism Secondary (HCC) Discharge Disposition: Home or Self Care [...] week 03/24/2021 How often do you attend mu-ism or lutheran serv ices? 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 Degenerative changes of thespine. Marianna He Jr. 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
--- OUTSIDE RECORDS SUMMARY | 2023-06-02 12:34 | XMS_ITS | Encounter Summary ---
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 [address] [place] [phone] Tee Celeste M.D., Ph.D. [address] [place] [phone] 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 [...] week 03/24/2021 How often do you attend caodaism or buddhist serv ices? Never 03/24/2021 Do you belong to any clubs o r organizations such as caodaism groups, unions, fraternal or athletic groups, or [...] Answer Date Recorded PHQ-2 Score 0 10/20/2018 [facility] of Occupat ional Health - Occupational Stress [...] your living situation today? I have a [facility] place to live 10/26/2022 Education Answer Date Recorded What is the highest level of school you have completed or the highest degree you have received? 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 - 11/01/2022 1:00 PM CDT Patient is a 72-year-old male with chronic progressive renal failure related to hypertension and diabetes. Patient was referred for dialysis access evaluation. Patient would prefer peritoneal dialysis since he would be able to do this at home and would give him better quality of life. Patient has had no prior abdominal surgery so I believe he is a good candidate for home peritoneal dialysis. However his renal function is still greater than 15mL/min renal clearance so I believe he is early for PD catheter placement. We discussed the PD placement procedure so he is familiar with that outpatientprocedure. Once his renal function has declined such that he is approximately 6 weeks from starting dialysis believe he can be scheduled for PD catheter placement here in the main operating room at [facility] Note patient is from [facility] and would undergo his outpatient training for peritoneal dialysis outside of the [facility] system. 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
--- OUTSIDE RECORDS SUMMARY | 2023-06-02 12:34 | XMS_ITS | Encounter Summary ---
Author Name Unknown Organization [facility] Address [address] [place] [address] Care Team Providers Care Sand Drier Name Role Phone Elsewhere, Pcp Primary Care Provider Unavailabl e Reason for Visit * Appointment Request (Routine) - Closed Specialty Diagnoses / Procedures Referred By Robi t Referred To Contact Transplant Diagnoses Pre Procedures Pre [facility] Referral ID Status Reason Start Date Expiration Date Visits Re quested Visits Authorized [id number] Closed 09/16/2022 09/16/2023 1 1 Encounter Details Date Type Department Care Team (Latest Contact Info) Description 09/21/2022 9:00 AM CDT Clinical Communication [facility] [place], [place] [address] [place] [address] Regina Basurto R.N., C.C.T.C. [address] [place] [address] Social History Tobacco Use Types Packs/Day Years [...] week 03/24/2021 How often do you attend episcopal or druze serv ices? Never 03/24/2021 Do you belong to any clubs o r organizations such as episcopal groups, unions, fraternal or athletic groups, or [...] Answer Date Recorded PHQ-2 Score 0 10/20/2018 [facility]at ional [facility] - Occupational Stress [...] or slept in a fpc (including now)? 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
--- OUTSIDE RECORDS SUMMARY | 2023-06-02 12:34 | XMS_ITS | Encounter Summary ---
Author Name Unknown Organization [facility] Address [address] [place] [address] Care Team Providers Care Bail Attacher Name Role Phone Elsewhere, Pcp Primary Care Provider Unavailabl e Reason for Visit * Appointment Request (Routine) - Closed Specialty Diagnoses / Procedures Referred By Robi t Referred To Contact Nephrology and Hypertension Referral ID Status Reason Start Date Expiration Date Visits Re quested Visits Authorized [id number] Closed 09/23/2022 09/23/2023 1 1 Encounter Details Date Type Department Care Team (Latest Contact Info) Description 10/26/2022 9:00 AM CDT External Outreach Division of Nephrology and Hypertension in [place], [place] [address] [place] [address] Haseeb Menon Jr., D.O. 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 Never 03/24/2021 Do you belong to any clubs o r organizations such as adventism groups, unions, fraternal or athletic groups, or [...] Answer Date Recorded PHQ-2 Score 0 10/20/2018 [facility] - Occupational Stress Questionnaire Answer Date [...] your living situation today? I have a [facility] place to live 10/26/2022 Education Answer Date Recorded What is the highest level of school you have completed or the highest degree you have received? 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 - 10/26/2022 9:00 AM CDT Referring Provider: ELSEWHERE, PCP SUBJECTIVE REASON FOR VISIT [place] [facility] Follow-up regarding CKD stage 4 to 5 on the background of diabetic hypertensive and ischemic nephrosclerosis HISTORY OF PRESENT ILLNESS Mr. Walton is a 72 y.o. male who presents with with a very complex history of diffuse and severe vascular disease, hypertension, diabetes mellitus type 1, and prior prolonged episodes of debility. Please see my previous notes, we are visiting him with respect to ongoing interim planning regards renal replacement. I appreciate that our transplant team reviewed his situation and found him to notbe a transplant candidate. Went to the Education opportunity, through [employer], was a bit disappointed, feeling he did not get more information from this than what had been delivered in our visit. Overall he is favoring home peritoneal dialysis, but is also considering conservative management. He is less pruritic than at our last visit, he is a bit more energy. He had his 1st Aranesp injection and had an episode where felt somewhat unwell, in his family mentioned that he was somewhat delirious. Uncertain what his blood sugars were at that time. He has been trying his best to remember taking his phosphorus binders but has been forgetting quitea bit. His glycemic control is currently variable, he had a corticosteroid injection in his right shoulderwhich has helped quite a bit from the shoulder pain. However his sugars are now running in the 300s. Was having frequent hypoglycemic events recently, and we had decreased his basal insulin by 10%. Appetite is intact, he is having some myoclonus, and is quite fatigued and sleeps most of the time.No chest pain no shortness of breath no nausea or vomiting. 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 OBJECTIVE BP 147/74 Pulse 93 Ht 175.2 cm Wt 81.6 kg BMI 26.58 kg/m?? PHYSICAL EXAMINATION General: Awake alert oriented HEENT: RJ, EOMI, Mucous membranes moist, no oral lesions Neck: No Masses, No Bruits Lungs: Clear to ascultation Heart: Regular Rate and Rhythm, No ectopy Murmurs or rubs Abdomen: Soft, Non-tender Extremities: No cyanosis, No clubbing: No edema Neuro: Cranial Nerves intact, Gait is normal, strength grossly normal, no myoclonus Skin: no suspicious lesions identified Psychiatric: Normal affect DIAGNOSTICS Note serum creatinine increased to 3.8 mg/dL, BUN 66, hemoglobin A1c 6.3%, calcium 7.2, phosphorus 6.0, normal iron stores, hemoglobin 7.9 ASSESSMENT / PLAN #1 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 ([facility]) I suspect he is actually end-stage renal disease. Many of his symptoms are consistent with early uremia. We will move towards renal replacement, he wishes to engage home peritoneal dialysis, I will forward his situation to our teams regarding getting him approved for dialysis. I will see him on a monthly basis. Going forward: 1. Goal blood pressure less than 140/90 at this stage 2. Goal glycosylated hemoglobin less than 8% 3. Continue to manage his complications of his renal failure as mentioned below including his anemia, renal osteodystrophy, fatigue. 4. May end up needing more urgent initiation of dialysis, if so we would use a tunneled dialysis catheter and start incenter hemo. However I am hopeful that we can get him orchestrate an organized fashion to have a peritoneal dialysis catheter placed and his being accepted to the dialysis program at [facility]. #2 Diabetes Mellitus Type 2 With Diabetic Nephropathy ([facility]) His glycemic control is variable currently, his sugars are too high right now, on the background ofhis recent corticosteroid injection. We will hold off on making changes at this point, as I anticipate the corticosteroid injections effect will wear off over the next few days. Was previously struggling with profound hypoglycemic events. #3 Anemia Of Chronic Renal Disease He is on Aranesp program, he had an event perhaps associated with elevated blood pressures, but we will continue with this, we may need to consider blood transfusion. #4 Peripheral Arterial Disease ([facility]) No open active wounds currently, no rest claudication. #5 Hyperparathyroidism Secondary ([facility]) Reminded him to take his 500 mg Tums 2 with each meal. This will help with his pruritus, as well as binding his phosphorus and improving his serum calciumlevel. 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 #8.: PA ME He is optimized for general anesthesia, but high risk due to his cardiovascular situation. Total time: 45 minutes Counseling Time: 35 minutes Haseeb Menon Jr., D.O. 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
--- OUTSIDE RECORDS SUMMARY | 2023-06-02 12:34 | XMS_ITS | Encounter Summary ---
Author Name Unknown Organization [facility] Address [address] [place] [id number] Care Team Providers Care Workgroup Leader Name Role Phone Elsewhere, Pcp Primary Care Provider Unavailabl e Encounter Details Date Type Department Care Team (Late st Contact Info) Description 10/27/2022 Episode Changes Division of Nephrology and Hypertension in [place], [place] [address] [place] [phone] Malathi Penaloza, RFeiN. [address] [place] [address] Social History Tobacco Use Types Packs/Day Years [...] week 03/24/2021 How often do you attend anabaptism or uatsdin serv ices? Never 03/24/2021 Do you belong to any clubs o r organizations such as anabaptism groups, unions, fraternal or athletic groups, or [...] Answer Date Recorded PHQ-2 Score 0 10/20/2018 [facility] - Occupational Stress Questionnaire Answer Date [...] your living situation today? [facility] 10/26/2022 Education Answer Date Recorded What is the highest level of school you have completed or the highest degree you have received? 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
--- OUTSIDE RECORDS SUMMARY | 2023-06-02 12:34 | XMS_ITS | Encounter Summary ---
Author Name Unknown Organization [facility] Address [address] [place] [address] Care Team Providers Care Inbound Customer Service Representative Name Role Phone Elsewhere, Pcp Primary Care Provider Unavailabl e Encounter Details Date Type Department Care Team (Late st Contact Info) Description 10/28/2022 Orders Only Division of Nephrology and Hypertension in [place], [place] [address] [place] [address] Haseeb Menon Jr., D.O. [address] [place] [address] 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 (HCC) (Primary Dx) Social History Tobacco Use Types Packs/Day Years [...] week 03/24/2021 How often do you attend mosque or zoroastrian serv ices? Never 03/24/2021 Do you belong to any clubs o r organizations such as mosque groups, unions, fraternal or athletic groups, or [...] Answer Date Recorded PHQ-2 Score 0 10/20/2018 [facility]at [facility] - Occupational Stress Questionnaire Answer Date [...] your living situation today? I have a [facility] place to live 10/26/2022 Education Answer Date Recorded What is the highest level of school you have completed or the highest degree you have received? 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 ----REFERENCE VALUE---- Unvaccinated: Negative Vaccinated: Positive HBs Antibody, Quantitative, S <5.0 mIU/mL 11/17/2022 9:12 PM CDT [facility] Comment: ----REFERENCE VALUE---- Unvaccinated: <5.0 Vaccinated: >=12.0 Blood (Blood, Venous) 11/17/2022 11:05 AM CDT 11/17/2022 4:58 PM CDT Haseeb Menon Jr., D.O. LAB MICROBIO LOGY - BLOOD ORDERABLES [facility] [address] [place] [address] [facility] [address] [place] [address] * Hepatitis B Surface Antigen (11/17/2022 11:05 AM CDT) HBs Antigen, S Negative Negative 11/17/2022 8:51 PM CDT [facility] Blood (Blood, Venous) 11/17/2022 11:05 AM CDT 11/17/2022 2:53 PM CDT Haseeb Menon Jr., D.O. LAB MICROBIO LOGY - BLOOD ORDERABLES Performing Organization Address City/[facility]/ZIP Co de Phone Number [facility] [address] [place] [address] [facility] [address] [place] [address] * HBc Total Ab, Serum (11/17/2022 11:05 AM CDT) HBc Total Ab, S Negative Negative 11/17/2022 9:12 PM CDT [facility] Blood (Blood, Venous) 11/17/2022 11:05 AM CDT 11/17/2022 4:58 PM CDT Haseeb Menon Jr., D.O. LAB MICROBIO LOGY - BLOOD ORDERABLES [facility] [address] [place] [address] [facility] [address] [place] [address] * HCV Ab Scrn w/Reflex to HCV PCR, Serum (11/17/2022 11:05 AM CDT) HCV Ab Screen, S Negative Negative 11/17/2022 9:09 PM CDT [facility] Comment:[id number] rat io is <1.00. Blood (Blood, Venous) 11/17/2022 11:05 AM CDT 11/17/2022 2:53 PM CDT Haseeb Menon Jr., D.O. LAB MICROBIO LOGY - BLOOD ORDERABLES [facility] [address] [place] [address] [facility] [address] [place] [address] * QuantiFERON-Tb Gold Plus, Blood (11/17/2022 11:04 AM CDT) [facility] QuantiFERON-TB Gold Plus Result Negative Negative 11/18/2022 10:55 AM CDT [facility] Comment: No interferon-gamma response to M. tuberculosis antigens was detected. Latent infection with M. tuberculosis is unlikely. A single negative result does not exclude infection with M. tuberculosis. In patients at high risk for M.tuberculosis infection, a second test should be considered in accordance with the 2017 ATS/IDSA/CDC Clinical Practice Guidelines for Diagnosis of Tuberculosis in Adults and Children [Lewinsohn DM et. al. Clin. Infect. Dis. 2017;64(2):111-115]. The reference range for the 'TB1 Ag minus Nil Result' and 'TB2 Ag minus Nil Result' is an Interferon-gamma level <0.35 IU/mL. TB1 Ag minus Nil Result 0.01 IU/mL 11/18/2022 10:55 AM CDT [facility] TB2 Ag minus Nil Result 0.02 IU/mL 11/18/2022 10:55 AM CDT [facility] Mit[facility] minus Nil Result 9.94 IU/mL 11/18/2022 10:55 AM CDT [facility] Nil Result 0.06 IU/mL 11/18/2022 10:55 AM CDT [facility] Blood (Blood, Venous) 11/17/2022 11:04 AM CDT 11/17/2022 1:50 PM CDT Narrative [facility] - 11/18/2022 10:55 AM CDT Specimen Information: Specimen ID: [id number] Specimen Type: Blood Specimen Collection Start Date: 11/17/2022 11:04 AM Specimen Received Date: 11/17/2022 ??1:50 PM Specimen ID: [id number] Specimen Type: Blood Specimen Collection Start Date: 11/17/2022 11:05 AM Specimen Received Date: 11/17/2022 ??1:50 PM Specimen ID: [id number] Specimen Type: Blood Specimen Collection Start Date: 11/17/2022 11:05 AM Specimen Received Date: 11/17/2022 ??1:50 PM Specimen ID: [id number] Specimen Type: Blood Specimen Collection Start Date: 11/17/2022 11:04 AM Specimen Received Date: 11/17/2022 ??1:50 PM Estiven He Jr.OFei LAB MICROBIO LOGY - BLOOD ORDERABLES [facility] [address] [place] [address] [facility] [address] [place] [address] documented in this encounter Visit Diagnoses Diagnosis 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 (HCC)- Primary 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 (HCC) documented in this encounter Additional Health Concerns Assessment Noted Time PHQ-9 Depression Total Score: 3 01/04/20 18 10:38 AM CDT documented as of this encounter Care Teams Inbound Customer Service Representative Relationship Specialty Start Date End Date Elsewhere, Pcp PCP - General Family Medicine 01/29/20 documented as of this encounter
--- OUTSIDE RECORDS SUMMARY | 2023-06-02 12:35 | XMS_ITS | Encounter Summary ---
Author Name Unknown Organization [facility] Address [address] [place] [address] Care Team Providers Care Wardrobe Stylist Name Role Phone Elsewhere, Pcp Primary Care Provider Unavailabl e Encounter Details Date Type Department Care Team (Latest Contact Info) Description 09/06/2022 10:39 AM CDT - 09/06/2022 11:59 PM CDT Hospital Encounter Department of Laboratory Medicine in [place], [place] [address] [place] [address] Haseeb Menon Jr., D.O. [address] [place] [phone] 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 (HCC); Diabetes Mellitus Type 2 With Diabetic Nephropathy (HCC); Anemia Of Chronic Renal Disease; Hyperparathyroidism Secondary (HCC); Atherosclerosis Of [place] Arteries Of Left Leg With Ulceration Of Unspecified Site (HCC); Depression Major Recurrent Moderate (HCC) Discharge Disposition: Home or Self Care [...] week 03/24/2021 How often do you attend mandaeism or denominational serv ices? Never 03/24/2021 Do you belong to any clubs o r organizations such as mandaeism groups, unions, fraternal or athletic groups, or [...] Date Recorded PHQ-2 Score 0 10/20/2018 [facility] of Occupat ional Health - [...] or slept in a intermediate (including now)? 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 Gender Identity Male 08/31/2019 2:40 PM [...] Diagnosis Comments RENAL FUNCTION PANEL, S Routine 09/06/2022 11:04 AM CDT 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 (HCC) Diabetes Mellitus Type 2 With Diabetic Nephropathy (HCC) Anemia Of Chronic Renal Disease Hyperparathyroidism Secondary (HCC) Atherosclerosis Of [place] Arteries Of Left Leg With Ulceration Of Unspecified Site (HCC) Depression Major Recurrent Moderate (HCC) IRON AND TOT IRON-BINDING CAPACITY, S/P Routine 09/06/2022 11:04 AM CDT 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 (HCC) Diabetes Mellitus Type 2 With Diabetic Nephropathy (HCC) Anemia Of Chronic Renal Disease Hyperparathyroidism Secondary (HCC) Atherosclerosis Of [place] Arteries Of Left Leg With Ulceration Of Unspecified Site (HCC) Depression Major Recurrent Moderate (HCC) CBC WITH DIFFERENTIAL, B Routine 09/06/2022 11:04 AM CDT 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 (HCC) Diabetes Mellitus Type 2 With Diabetic Nephropathy (HCC) Anemia Of Chronic Renal Disease Hyperparathyroidism Secondary (HCC) Atherosclerosis Of [place] Arteries Of Left Leg With Ulceration Of Unspecified Site (HCC) Depression Major Recurrent Moderate (HCC) URIC ACID, S/P Routine 09/06/2022 11:04 AM CDT 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 (HCC) Diabetes Mellitus Type 2 With Diabetic Nephropathy (HCC) Anemia Of Chronic Renal Disease Hyperparathyroidism Secondary (HCC) Atherosclerosis Of [place] Arteries Of Left Leg With Ulceration Of Unspecified Site (HCC) Depression Major Recurrent Moderate (HCC) PARATHYROID HORMONE (PTH), S Routine 09/06/2022 11:04 AM CDT 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 (HCC) Diabetes Mellitus Type 2 With Diabetic Nephropathy (HCC) Anemia Of Chronic Renal Disease Hyperparathyroidism Secondary (HCC) Atherosclerosis Of [place] Arteries Of Left Leg With Ulceration Of Unspecified Site (HCC) Depression Major Recurrent Moderate (HCC) HEMOGLOBIN A1C, B Routine 09/06/2022 11: 04 AM CDT 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 (HCC) Diabetes Mellitus Type 2 With Diabetic Nephropathy (HCC) Anemia Of Chronic Renal Disease Hyperparathyroidism Secondary (HCC) Atherosclerosis Of [place] Arteries Of Left Leg With Ulceration Of Unspecified Site (HCC) Depression Major Recurrent Moderate (HCC) FERRITIN, S Routine 09/06/2022 11:04 AM CDT 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 (HCC) Diabetes Mellitus Type 2 With Diabetic Nephropathy (HCC) Anemia Of Chronic Renal Disease Hyperparathyroidism Secondary (HCC) Atherosclerosis Of [place] Arteries Of Left Leg With Ulceration Of Unspecified Site (HCC) Depression Major Recurrent Moderate (HCC) documented in this encounter Results * (ABNORMAL) Iron and Total Iron-Binding Capacity (09/06/2022 11:04 AM CDT) Iron 73 50 - 150 mcg/dL 09/06/2022 4:49 PM CDT AUST Total Iron Binding Capacity 234(L) 250 - 400 mcg/dL 09/06/2022 4:49 PM CDT AUST Percent Saturation 31 14 - 50 % 09/06/2022 4:49 PM CDT AUST Blood (Blood, Venous) 09/06/2022 11:04 AM CDT 09/06/2022 4:24 PM CDT Haseeb Menon Jr., D.O. LAB BLOOD AD D-ON [facility] [address] [place], [place] [address] [place] [address] Lab - [address] [address] * Uric Acid (09/06/2022 11:04 AM CDT) Uric Acid, P 5.8 3.7 - 8.0 mg/dL 09/06/2022 4:47 PM CDT AUST Blood (Blood, Venous) 09/06/2022 11:04 AM CDT 09/06/2022 4:24 PM CDT Haseeb Menon Jr., D.O. LAB BLOOD AD D-ON Performing Organization Address [facility] Co de Phone Number [facility] [address] [place] [address], [facility] Lab - [address] [address] * (ABNORMAL) Parathyroid Hormone (PTH) (09/06/2022 11:04 AM CDT) Parathyroid Hormone (PTH), S 240(H) 15 - 65 pg/mL 09/06/2022 5:01 PM CDT AUST Comment: Biotin has been identified by the director of student services as a potential interfering substance. Higher concentrations of biotin may be found in multivitamins, hair/nail supplements, and workout supplements. If the result does not match clinical observations, repeat testing after patient refrains from the use of supplements for at least 12 hours. Blood (Blood, Venous) 09/06/2022 11:04 AM CDT 09/06/2022 4:24 PM CDT Haseeb Menon Jr., D.O. LAB BLOOD AD D-ON [facility] [address] [facility] [place] [address], [facility] AUST [facility] Lab - [facility] [address] [place] [address] * (ABNORMAL) Ferritin (09/06/2022 11:04 AM CDT) Ferritin, S 640(H) 31 - 409 mcg/L 09/06/2022 3:48 PM CDT OWAT Comment: Biotin has been identified by the director of student services as a potential interfering substance. Higher concentrations of biotin may be found in multivitamins, hair/nail supplements, and workout supplements. If the result does not match clinical observations, repeat testing after patient refrains from the use of supplements for at least 12 hours. Blood (Blood, Venous) 09/06/2022 11:04 AM CDT 09/06/2022 1:38 PM CDT Haseeb Menon Jr., D.O. LAB BLOOD AD D-ON Performing Organization Address [facility]/ZIP Co de Phone Number [facility] [address] [place] [address], [facility] OWAT [facility] in [place] [address] [place] [address] * (ABNORMAL) Hemoglobin A1c (09/06/2022 11:04 AM CDT) Pathologist [facility] Hemoglobin A1c, B 6.1(H) 4.2 - 5.6 % 09/06/2022 2:30 PM CDT OWAT Comment: Hemoglobin A1c values of 5.7-6.4 percent indicate an increased risk for developing diabetes mellitus. In diabetic patients, HbA1c goals should be discussed with healthcare provider. Blood (Blood, Venous) 09/06/2022 11:04 AM CDT 09/06/2022 1:37 PM CDT Haseeb Menon Jr., D.O. LAB BLOOD AD D-ON Performing Organization Address City/[facility]/ZIP Co de Phone Number [facility] [address] [place] [address], [place] OW[facility] in [address] [place] [address] * (ABNORMAL) Renal Function Panel (09/06/2022 11:04 AM CDT) Potassium, P 5.6(H) 3.6 - 5.2 mmol/L 09/06/2022 2:19 PM CDT OW[facility] Sodium, P 138 135 - 145 mmol/L 09/06/2022 2:19 PM CDT [facility] Chloride, P 103 98 - 107 mmol/L 09/06/2022 2:19 PM CDT OW[facility] Bicarbonate, P 20(L) 22 - 29 mmol/L 09/06/2022 2:19 PM CDT OW[facility] Anion Gap, P 15 7 - 15 09/06/2022 2:19 PM CDT [facility] BUN (Blood Urea Nitrogen), P 80(H) 8 - 24 mg/dL 09/06/2022 2:19 PM CDT OW[facility] Creatinine 3.52(H) 0.74 - 1.35 mg/dL 09/06/2022 2:19 PM CDT OW[facility] Estimated GFR (eGFR) 18(L) >=60 mL/min/BSA 09/06/2022 2:19 PM CDT OWAT Comment: Estimated GFR calculated using the 2020 CKD_EPI creatinine equation. Calcium, Total, P 8.2(L) 8.8 - 10.2 mg/dL 09/06/2022 2:19 PM CDT OW[facility] Glucose, P 114 70 - 140 mg/dL 09/06/2022 2:19 PM CDT OW[facility] Albumin, P 3.2(L) 3.5 - 5.0 g/dL 09/06/2022 2:19 PM CDT OW[facility] Phosphorus (Inorganic), P 7.1(H) 2.5 - 4.5 mg/dL 09/06/2022 4:47 PM CDT AUST Blood (Blood, Venous) 09/06/2022 11:04 AM CDT 09/06/2022 4:24 PM CDT Narrative [facility] - 09/06/2022 4:47 PM CDT Specimen Information: Specimen ID: [id number] Specimen Type: Blood Specimen Collection Start Date: 09/06/2022 11:04 AM Specimen Received Date: 09/06/2022 ??4:24 PM Specimen ID: [id number] Specimen Type: Blood Specimen Collection Start Date: 09/06/2022 11:04 AM Specimen Received Date: 09/06/2022 ??1:38 PM Haseeb Menon Jr., D.O. LAB BLOOD AD D-ON [facility] [address] [place] [address], [facility] OW[facility] in [place] [address] [place] [address] [facility] - [facility] [address] [place] [address] * (ABNORMAL) CBC with Differential, Blood (09/06/2022 11:04 AM CDT) Pathologist [facility] Hemoglobin 8.8(L) 13.2 - 16.6 g/dL 09/06/2022 11:52 AM CDT FB60 Hematocrit 28.0(L) 38.3 - 48.6 % 09/06/2022 11:52 AM CDT FB60 Erythrocytes 2.93(L) 4.35 - 5.65 x10(12)/L 09/06/2022 11:52 AM CDT FB60 MCV 95.6 78.2 - 97.9 fL 09/06/2022 11:52 AM CDT FB60 RBC Distrib Width 15.3(H) 11.8 - 14.5 % 09/06/2022 11:52 AM CDT FB60 Platelet Count 283 135 - 317 x10(9)/L 09/06/2022 11:52 AM CDT FB60 Leukocytes 11.6(H) 3.4 - 9.6 x10(9)/L 09/06/2022 11:52 AM CDT FB60 Neutrophils 7.81(H) 1.56 - 6.45 x10(9)/L 09/06/2022 11:52 AM CDT FB60 Lymphocytes 2.07 0.95 - 3.07 x10(9)/L 09/06/2022 11:52 AM CDT FB60 Monocytes 1.26(H) 0.26 - 0.81 x10(9)/L 09/06/2022 11:52 AM CDT FB60 Eosinophils 0.38 0.03 - 0.48 x10(9)/L 09/06/2022 11:52 AM CDT FB60 Basophils <0.04 0.01 - 0.08 x10(9)/L 09/06/2022 11:52 AM CDT FB60 Blood (Blood, Venous) 09/06/2022 11:04 AM CDT 09/06/2022 11:04 AM CDT Estiven He Jr.OFei LAB BLOOD AD D-ON [facility] [address] [place] [address], [facility] FB60 [facility] [place] [address] documented in this encounter Visit Diagnoses Diagnosis 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 (HCC) Diabetes Mellitus Type 2 With Diabetic Nephropathy (HCC) Anemia Of Chronic Renal Disease Hyperparathyroidism Secondary (HCC) Atherosclerosis Of [place] Arteries Of Left Leg With Ulceration Of Unspecified Site (HCC) Depression Major Recurrent Moderate (HCC) documented in this encounter Additional Health Concerns Assessment Noted Time PHQ-9 Depression Total Score: 3 01/04/20 18 10:38 AM CDT documented as of this encounter Care Teams Wardrobe Stylist Relationship Specialty Start Date End Date Elsewhere, Pcp PCP - General Family Medicine 01/29/20 documented as of this encounter
--- OUTSIDE RECORDS SUMMARY | 2023-06-02 12:35 | XMS_ITS | Encounter Summary ---
Author Name Unknown Organization [facility] Address [address] [place] [address] Care Team Providers Care Logistics Solution Manager Name Role Phone Elsewhere, Pcp Primary Care Provider Unavailabl e Reason for Visit * Reason Onset Date Comments Med Question 07/08/2022 Encounter Details Date Type Department Care Team (Latest Contact Info) Description 07/08/2022 Clinical Communication Division of Nephrology and Hypertension in [place], [place] [address] [place] [address] Haseeb Menon Jr., D.O. [address] [place] [address] Med Question Social History Tobacco Use Types Packs/Day Years [...] week 03/24/2021 How often do you attend orthodox or moravian serv ices? Never 03/24/2021 Do you belong to any clubs o r organizations such as orthodox groups, unions, fraternal or athletic groups, or [...] Answer Date Recorded PHQ-2 Score 0 10/20/2018 [facility] of Occupat ional Health - Occupational Stress [...] or slept in a fdc (including now)? 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 Information/Education: patient/caller able to teach back The following references were used: nursing clinical judgement ERVATION ENFORCEMENT OFFICER * Telephone Encounter - Trino Hair - 07/08/2022 1:35 PM CST Caller is: patient Preferred Communication Method: [phone] (mobile) Reason for call: Patient called and said he is being seen in [facility] for gout in his hand. His PCP would like Dr. Menon's opinion on what medication they should give the patient that is not too harmful for his kidneys. Patient tells me he has been on prednisone for the past week but as soon as he stopped taking it his hand started swelling again. His PCP suggested Uloric or Allopurinol. ERVATION ENFORCEMENT OFFICER documented in this encounter Plan of Treatment Not on file documented as of this encounter Visit Diagnoses Not on filedocumented in this encounter Additional Health Concerns Assessment Noted Time PHQ-9 Depression Total Score: 3 01/04/20 18 10:38 AM CDT documented as of this encounter Care Teams Logistics Solution Manager Relationship Specialty Start Date End Date Elsewhere, Pcp PCP - General Family Medicine 01/29/20 documented as of this encounter
--- OUTSIDE RECORDS SUMMARY | 2023-06-02 12:35 | XMS_ITS | Encounter Summary ---
Author Name Unknown Organization [facility] Address [address] [place] [address] Care Team Providers Care Form Grader Operator Name Role Phone Elsewhere, Pcp Primary Care Provider Unavailabl e Encounter Details Date Type Department Care Team (Latest Contact Info) Description 09/06/2022 10:39 AM CDT - 09/06/2022 11:59 PM CDT Hospital Encounter Department of Laboratory Medicine in [place], [place] [address] [place] [address] Haseeb Menon Jr., D.O. [address] [place] [phone] 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 (HCC); Diabetes Mellitus Type 2 With Diabetic Nephropathy (HCC); Anemia Of Chronic Renal Disease; Hyperparathyroidism Secondary (HCC); Atherosclerosis Of [place] Arteries Of Left Leg With Ulceration Of [...] week 03/24/2021 How often do you attend voodoo or sikh serv ices? Never 03/24/2021 Do you belong to any clubs o r organizations such as voodoo groups, unions, fraternal or athletic groups, or [...] Answer Date Recorded PHQ-2 Score 0 10/20/2018 [facility] of Occupat ional Health - Occupational Stress [...] or slept in a fci (including now)? 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 Gender Identity Male 08/31/2019 2:40 PM CDT [...] TAKE ONE CAPSULE BY MOUTH EVERY DAY SKILLED NURSING 0 01/14/2022 nortriptyline (PAMELOR) 50 mg capsule [...] Associated Diagnosis Comments ALBUMIN, RANDOM, U Routine 09/06/2022 10 :59 AM CDT 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 (HCC) Diabetes Mellitus Type 2 With Diabetic Nephropathy (HCC) Anemia Of Chronic Renal Disease Hyperparathyroidism Secondary (HCC) Atherosclerosis Of [place] Arteries Of Left Leg With Ulceration Of Unspecified Site (HCC) Depression Major Recurrent Moderate (HCC) URINALYSIS WITH MICROSCOPIC Routine 09/06/2022 10:59 AM CDT 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 (HCC) Diabetes Mellitus Type 2 With Diabetic Nephropathy (HCC) Anemia Of Chronic Renal Disease Hyperparathyroidism Secondary (HCC) Atherosclerosis Of [place] Arteries Of Left Leg With Ulceration Of Unspecified Site (HCC) Depression Major Recurrent Moderate (HCC) documented in this encounter Results * (ABNORMAL) Urinalysis with Microscopic: Urine, Voided (09/06/2022 10:59 AM CDT) Source Urine, Urine, Voided 09/06/2022 11:16 AM CDT FB60 Clarity Clear Clear 09/06/2022 11:18 AM CDT FB60 Color Yellow 09/06/2022 11:18 AM CDT FB60 Comment: ----REFERENCE VALUE---- Colorless Yellow Cha Blood Trace(A) Negative 09/06/2022 11:18 AM CDT FB60 Nitrite Negative Negative 09/06/2022 11:18 AM CDT FB60 Leukocyte Esterase Negative Negative 09/06/2022 11:18 AM CDT FB60 Protein >=300(A) mg/dL 09/06/2022 11:18 AM CDT FB60 Comment: ----REFERENCE VALUE---- Negative Trace Glucose Negative Negative mg/dL 09/06/2022 11:18 AM CDT FB60 Ketones, QI(U) Negative Negative mg/dL 09/06/2022 11:18 AM CDT FB60 Bilirubin Negative Negative 09/06/2022 11:18 AM CDT FB60 pH 5.5 5.0 - 8.0 09/06/2022 11:18 AM CDT FB60 Specific Carlotta 1.015 1.001 - 1.035 09/06/2022 11:18 AM CDT FB60 Urobilinogen 0.2 0.2 - 1.0 mg/dL 09/06/2022 11:18 AM CDT FB60 White Blood Cells None Seen /hpf 09/06/2022 11:52 AM CDT FB60 Comment: ----REFERENCE VALUE---- Males: 0-3 Females: 0-10 Unknown: 0-10 Red Blood Cells Occ-2 0 - 2 /hpf 11:52 AM CDT FB60 Squamous Cells Occ-3 /hpf 09/06/2022 11:52 AM CDT FB60 Urine (Urine, Voided) 09/06/2022 10:59 AM CDT 09/06/2022 11:15 AM CDT Haseeb Menon Jr. D.O. LAB URINE OR DERABLES [facility] [address] [facility] [place] [address], [facility] FB60 [facility] [place] [address] [place] [address] * (ABNORMAL) Albumin, Random, Urine (09/06/2022 10:59 AM CDT) Microalbumin 1149.0 mg/L 09/06/2022 4:37 PM CDT OWAT Creatinine 22 mg/dL 09/06/2022 2:31 PM CDT OWAT Albumin/Creatinin e Ratio 5223(H) <17 mg/g 09/06/2022 4:37 PM CDT OWAT Urine (Urine, Voided) 09/06/2022 10:59 AM CDT 09/06/2022 1:39 PM CDT Haseeb Menon Jr., D.O. LAB URINE OR DERABLES Performing Organization Address City/State/[facility] Co de Phone Number [facility] [address] [place] [address], [facility] OWAT [facility] in [place] [address] [place] [address] documented in this encounter Visit Diagnoses Diagnosis 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 (HCC) Diabetes Mellitus Type 2 With Diabetic Nephropathy (HCC) Anemia Of Chronic Renal Disease Hyperparathyroidism Secondary (HCC) Atherosclerosis Of [place] Arteries Of Left Leg With Ulceration Of Unspecified Site (HCC) Depression Major Recurrent Moderate (HCC) documented in this encounter Additional Health Concerns Assessment Noted Time PHQ-9 Depression Total Score: 3 01/04/20 18 10:38 AM CDT documented as of this encounter Care Teams Form Grader Operator Relationship Specialty Start Date End Date Elsewhere, Pcp PCP - General Family Medicine 01/29/20 documented as of this encounter
--- OUTSIDE RECORDS SUMMARY | 2023-06-02 12:35 | XMS_ITS | Encounter Summary ---
Author Name Unknown Organization [facility] Address [address] [place] [address] Care Team Providers Care Central Sterile Tech Name Role Phone Elsewhere, Pcp Primary Care Provider Unavailpoala e Encounter Details Date Type Department Care Team (Late st Contact Info) Description 08/19/2016 Historical Ophthalmology [facility] Chalo Holland Jr., M.D. [address] [place] [address] Social History Tobacco Use Types Packs/Day Years Used Date Smoking Tobacco: Every Day Sex and Gender Information Value Date Recorded Sex Assigned at Male 03/24/2021 8:13 PM COMMERCIAL PAINTER Gender Identity Male 08/31/2019 2:40 PM CDT Sexual Orientation Straight 08/31/2019 2: 40 PM CDT documented as of this encounter Progress Notes * Chalo Holland M.D. - 08/19/2016 9:31 AM [...] IOL OU CDM Reports - EYEGEN Id: [id number] Status: Fnl documented in this encounter Plan of Treatment Not on file documented as of this encounter Visit Diagnoses Not on filedocumented in this encounter Additional Health Concerns Infection Onset Date Last Indicated Resolved Time COVID19 Pending 05/08/2020 05/08/2020 05/08/2020 2 :44 PM COMMERCIAL PAINTER Assessment Noted Time PHQ-9 Depression Total Score: 7 08/17/19 17 9:01 AM CDT documented as of this encounter Care Teams Central Sterile Tech Relationship Specialty Start Date End Date Elsewhere, Pcp PCP - General Family Medicine 01/29/20 documented as of this encounter
--- OUTSIDE RECORDS SUMMARY | 2023-06-02 12:35 | XMS_ITS ---
Author Name Unknown Organization [facility] Address [address] [place] [address] Care Team Providers Care Railroad Switchman Name Role Phone Elsewhere, Pcp Primary Care Provider Unavailabl e Transplant Episode Kidney Candidate [place], [place]) - [facility] Referred on 09/16/2022 Marked as Ineligible on 09/21/2022 Reason: Surgical Contraindication Kidney CoordinatorDetiffany Becerra R.N., C.C.T.C. Email: [email or web address] Scores Score Value Updated Exceptions/Reas ons CPRA Not available EPTS (Calc) 70 06/02/2023 Care Team Name Role Phone Fax Email Regina Becerra R.N., C.C.T.C. Kidney Coordinator [phone] [email or web address] Haseeb Menon Jr., D.O. Referring Provider [phone] [email or web address] Pre-Transplant Referred: 09/16/2022
--- OUTSIDE RECORDS SUMMARY | 2023-06-02 12:35 | XMS_ITS | Encounter Summary ---
Author Name Unknown Organization [facility] Address [address] [place] [address] Care Team Providers Care Athletic Equipment Manager Name Role Phone Elsewhere, Pcp Primary Care Provider Unavailabl e Reason for Visit * Appointment Request (Routine) - Closed Specialty Diagnoses / Procedures Referred By Robi t Referred To Contact Nephrology and Hypertension Referral ID Status Reason Start Date Expiration Date Visits Re quested Visits Authorized [id number] Closed 08/27/2022 08/27/2023 1 Encounter Details Date Type Department Care Team (Latest Contact Info) Description 09/14/2022 9:00 AM CDT External Outreach Division of Nephrology and Hypertension in [place], [place] [address] [place] [address] Haseeb Menon Jr., D.O. [address] [place] [address] 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 (HCC) (Primary Dx); Diabetes Mellitus Type 2 With Diabetic Nephropathy (HCC); Anemia Of Chronic Renal Disease; Peripheral Arterial Disease (HCC); Hyperparathyroidism Secondary (HCC); Gout Social History Tobacco Use Types Packs/Day Years [...] week 03/24/2021 How often do you attend druze or mormon serv ices? Never 03/24/2021 Do you belong to any clubs o r organizations such as druze groups, unions, fraternal or athletic groups, or [...] Answer Date Recorded PHQ-2 Score 0 10/20/2018 [facility] of Occupat ional Health - Occupational [...] slept in a long term (including now)? No 03/24/2021 Nutrition Answer Date [...] Sex Assigned at Male 03/24/2021 8:13 PM HAIR SAMPLE MATCHER Gender Identity Male 08/31/2019 2:40 PM CDT Sexual Orientation Straight 08/31/2019 2: 40 PM CDT documented as of this encounter Last Filed Vital Signs Vital Sign Reading Time Taken Comments Blood Pressure 150/90 09/14/2022 9:20 AM CDT Pulse 88 09/14/2022 9:20 AM CDT Temperature - - Respiratory Rate - - Oxygen Saturation 100% 09/14/2022 9:20 AM CDT Inhaled Oxygen Concentration - - Weight 83.9 kg (184 lb 15.5 oz) 09/14/2022 9:20 AM CDT Height 175.2 cm (5' 8.98) 09/14/2022 9:20 AM CD T Body Mass Index 27.33 09/14/2022 9:20 AM CDT documented in this encounter Progress Notes * Haseeb Menon Jr., D.O. - 09/14/2022 9:00 AM CDT Referring Provider: ELSEWHERE, PCP SUBJECTIVE REASON FOR VISIT [place] [facility] Follow-up regards CKD HISTORY OF PRESENT ILLNESS Mr. Walton is a 72 y.o. male who presents with hypertensive ischemic and diabetic nephrosclerosis,with progressive renal failure. He has a longstanding very complex history as outlined in my prior notes. He is accompanied by his and his daughter today, and has been doing very poorly recently. He has been seeing providers at [facility] as well as here in [place], and has been struggling with severe neck, right arm, and multi joint, particularly left wrist pain. In addition, he is struggling with cold intolerance, profound fatigue, intermittent nausea, and malaise. He sleeps much of the day. I appreciate he was in to see his primary care team in August, they discontinued his lisinopril and amlodipine, on the background of lower extremity swelling, and his progressive renal failure. I notethat labs done last week demonstrate his creatinine to be 3.5 and a BUN of 80. His phosphorus is dramatically elevated at 7.1, and he is profoundly anemic with a hemoglobin of 8.7. Fortunately his appetite is intact, he is tremendously pruritic however. We spent a 30 minute time frame discussing renal replacement options including living donor and donor kidney transplant, the risks benefits and alternatives, including his barriers with respect to his cardiovascular disease. Additionally, discussed dialysis modalities including peritoneal and incenter dialysis. He is interested in peritoneal dialysis. We also discussed the consequences of advanced renal failure including osteodystrophy, gout, pseudogout, and his profound anemia. Past Medical History: Diagnosis Date Bruit Carotid [...] TAKE ONE CAPSULE BY MOUTH EVERY DAY [facility], Disp: , Rfl: nortriptyline (PAMELOR) 50 mg [...] systems reviewed and are negative. OBJECTIVE BP 150/90 Pulse 88 Ht 175.2 cm Wt 83.9 kg SpO2 100% BMI 27.33 kg/m?? PHYSICAL EXAMINATION General: Awake alert oriented HEENT: RJ, EOMI, Mucous membranes moist, no oral lesions Neck: No Masses, No Bruits Lungs: Crackles bilateral bases clearing with cough Heart: Regular Rate and Rhythm, No ectopy Murmurs or rubs Abdomen: Soft, Non-tender Extremities: Swollen left wrist, tender right shoulder, +1 lower extremity swelling Neuro: Cranial Nerves intact, Gait is antalgic strength grossly normal Skin: no suspicious lesions identified, multiple punctate Psychiatric: Normal affect DIAGNOSTICS Creatinine 3.5 mg/dL, BUN 80, hemoglobin 8.8 normal iron stores Hemoglobin A1c 6.3% ASSESSMENT / PLAN #1 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 (HCC) I suspect he is actually reaching end-stage renal disease. This on the background of diabetic hypertensive and ischemic nephrosclerosis. Going forward: 1. Evaluation for renal replacement modalities and Education 2. Proposal for consideration of transplant 3. Initiation of planning for renal replacement, I will visit him next month regards this 4. Initiation of therapy for his anemia of CKD 5. Initiation of therapy for his elevated serum phosphorus levels, and renal osteodystrophy. #2 Diabetes Mellitus Type 2 With Diabetic Nephropathy (HCC) Asked him to cut his insulin pump by 10% given his hypoglycemic events. #3 Anemia Of Chronic Renal Disease We will start Aranesp as an outpatient with a goal hemoglobin between 10 and 11.5 #4 Peripheral Arterial Disease (HCC) No active lesions #5 Hyperparathyroidism Secondary (HCC) I suspect that some of his joint pain is due to pseudogout, we will initiate 1000 mg calcium carbonate 3 times daily with meals to bind phosphorus. #6 Gout He should be on allopurinol 100 mg per day he may need some corticosteroid therapy. Total time: 1 hour 5 minutes Counseling Time: 1 hour Haseeb Menon Jr., D.O. documented in this encounter Plan of Treatment Not on file documented as of this encounter Visit Diagnoses Diagnosis 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 (HCC)- Primary Diabetes Mellitus Type 2 With Diabetic Nephropathy (HCC) Anemia Of Chronic Renal Disease Peripheral Arterial Disease (HCC) Hyperparathyroidism Secondary (HCC) Gout documented in this encounter Additional Health Concerns Assessment Noted Time PHQ-9 Depression Total Score: 3 01/04/20 18 10:38 AM CDT documented as of this encounter Care Teams Athletic Equipment Manager Relationship Specialty Start Date End Date Elsewhere, Pcp PCP - General Family Medicine 01/29/20 documented as of this encounter
--- OUTSIDE RECORDS SUMMARY | 2023-06-02 12:35 | XMS_ITS | Encounter Summary ---
Author Name Unknown Organization [facility] Address [address] [place] [address] Care Team Providers Care Salon Stylist Name Role Phone Elsewhere, Pcp Primary Care Provider Unavailabl e Reason for Visit * Reason Comments Med Refill Encounter Details Date Type Department Care Team (Late st Contact Info) Description 06/23/2022 Refill Division of Nephrology and Hypertension in [place], [place] [address] [place] [address] Hui Delgado APRN, C.N.P., R.N. Med Refill Social History Tobacco Use Types [...] week 03/24/2021 How often do you attend yazdanism or pentecostalism serv ices? Never 03/24/2021 Do you belong to any clubs o r organizations such as yazdanism groups, unions, fraternal or athletic groups, or [...] Answer Date Recorded PHQ-2 Score 0 10/20/2018 [facility] [place] of Occupat ional Health - Occupational Stress [...] slept in a care home (including now)? No 03/24/2021 Nutrition Answer Date [...] Sex Assigned at Male 03/24/2021 8:13 PM HAM MARKER Gender Identity Male 08/31/2019 2:40 PM CDT Sexual Orientation Straight 08/31/2019 2: 40 PM CDT documented as of this encounter Plan of Treatment Not on file documented as of this encounter Visit Diagnoses Not on filedocumented in this encounter Additional Health Concerns Assessment Noted Time PHQ-9 Depression Total Score: 3 01/04/20 18 10:38 AM CDT documented as of this encounter Care Teams Salon Stylist Relationship Specialty Start Date End Date Elsewhere, Pcp PCP - General Family Medicine 01/29/20 documented as of this encounter
--- OUTSIDE RECORDS SUMMARY | 2023-06-02 12:35 | XMS_ITS | Encounter Summary ---
Author Name Unknown Organization [facility] Address [address] [place] [address] Care Team Providers Care Flexible Machining System Machinist Name Role Phone Elsewhere, Pcp Primary Care Provider Unavailabl e Reason for Visit * Reason Onset Date Comments Amlodipine RX 07/01/2022 Encounter Details Date Type Department Care Team (Latest Contact Info) Description 07/01/2022 Clinical Communication Division of Nephrology and Hypertension in [place], [place] [address] [place] [address] Haseeb Menon Jr., D.O. [address] [place] [address] Amlodipine RX Social History Tobacco Use Types Packs/Day Years [...] How often do you attend samaritan or sabianism serv ices? Never 03/24/2021 Do [...] Answer Date Recorded PHQ-2 Score 0 10/20/2018 [facility] [place] of Occupat ional Health - Occupational Stress [...] slept in a group home (including now)? No 03/24/2021 Nutrition Answer [...] Sex Assigned at Male 03/24/2021 8:13 PM CAFETERIA OR LUNCHROOM CHECKER Gender Identity Male 08/31/2019 2:40 PM CDT Sexual Orientation Straight 08/31/2019 2: 40 PM CDT documented as of this encounter Miscellaneous Notes * Telephone Encounter - Ana Maria Gutiérrez - 07/01/2022 1:37 PM CST Caller is: other: Authorization YES Preferred Communication Method: [phone] Reason for call: Pharmacy calls stating Dr. Menon sent in a prescription a couple of days ago for the patient's amlodipine RX, 10 mg. Today, they received a prescription from a Dr. Agrawal for amlodipine, 5 mg. They feel you are the better provider to know which one the patient should be on. Please let them know if 10 mg is correct. Thank you. TERIA OR LUNCHROOM CHECKER documented in this encounter Plan of Treatment Not on file documented as of this encounter Visit Diagnoses Not on filedocumented in this encounter Additional Health Concerns Assessment Noted Time PHQ-9 Depression Total Score: 3 01/04/20 18 10:38 AM CDT documented as of this encounter Care Teams Flexible Machining System Machinist Relationship Specialty Start Date End Date Elsewhere, Pcp PCP - General Family Medicine 01/29/20 documented as of this encounter
--- OUTSIDE RECORDS SUMMARY | 2023-06-02 12:35 | XMS_ITS | Encounter Summary ---
Author Name Unknown Organization [facility] Address [address] [place] [address] Care Team Providers Care Marine Engine Driver Name Role Phone Elsewhere, Pcp Primary Care Provider Unavailabl e Encounter Details Date Type Department Care Team (Late st Contact Info) Description 07/05/2022 Orders Only Division of Nephrology and Hypertension in [place], [place] [address] [place] [address] Haseeb Menon Jr., D.O. [address] [place] [address] Social History Tobacco Use Types Packs/Day Years [...] How often do you attend zoroastrianism or mormon serv ices? Never 03/24/2021 Do [...] Answer Date Recorded PHQ-2 Score 0 10/20/2018 [facility] of Occupat ional Health - Occupational Stress [...] Sex Assigned at Male 03/24/2021 8:13 PM GROUND LAYER Gender Identity Male 08/31/2019 2:40 PM CDT Sexual Orientation Straight 08/31/2019 2: 40 PM CDT documented as of this encounter Plan of Treatment Not on file documented as of this encounter Visit Diagnoses Not on filedocumented in this encounter Additional Health Concerns Assessment Noted Time PHQ-9 Depression Total Score: 3 01/04/20 18 10:38 AM CDT documented as of this encounter Care Teams Marine Engine Driver Relationship Specialty Start Date End Date Elsewhere, Pcp PCP - General Family Medicine 01/29/20 documented as of this encounter
== END 2023-06-02 12:26 | disposition home or self-care (01) ==
PROVIDERS: PCP Family Medicine; Visit Provider Family Medicine
DX: E11.9 Type 2 diabetes mellitus without complications (principal); E78.5 Hyperlipidemia, unspecified; I10 Essential (primary) hypertension; L08.9 Local infection of the skin and subcutaneous tissue, unspecified; Z79.4 Long term (current) use of insulin
CPT/HCPCS: 80048; 80061; 85025

== ENCOUNTER 2023-06-06 08:32 | Outpatient (CLI) | payer MEDICARE, BC, SELFPAY ==
--- OUTSIDE RECORDS SUMMARY | 2023-06-06 08:35 | XMS_ITS | Referral Summary ---
Author Name Unknown Organization [facility] Address [address] [place] [address] Care Team Providers Care Tray Casting Machine Operator Name Role Phone Elsewhere, Pcp Primary Care Provider Unavailabl e Source Comments Patient records contain information from all sites at [facility]. For routine questions regarding patient records, call [phone] during business hours, M-F 8:00 AM - 5:00 PM Central Time. Record requests for emergency care only can be directed to [phone] at any time.[facility] Encounters Date Type Department Care Team Description 04/26/2023 Orders Only Division of Nephrology and Hypertension in [place], [place] [address] [place] [address] Haseeb Menon Jr., D.O. 04/15/2023 Orders Only Division of Nephrology and Hypertension in [place], [place] [address] [place] [address] Haseeb Menon Jr., Kylah.O. 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 03/13/2023 Refill Division of Nephrology and Hypertension in [place], [place] [address] [place] [address] Haseeb Menon Jr. D.O. Med Refill from Last 3 Months Allergies Active Allergy Reactions Criticality Noted Date Comments Gabapentin Other (see comments) Medium 08/04/2020 Dizzy, memory issue Morphine Itching,Rash Medium 02/14/2012 itchy Pregabalin Anaphylaxis High 02/16/2017 swell Rancnos-Dyt-Rex Reductase Inhibitors Myalgia Low 02/13/2014 Medications Medication [...] BY MOUTH EVERY DAY [facility] 0 01/14/2022 Active amLODIPine (NORVASC) 5 mg [...] 04/21/2018 Restless Leg Syndrome 01/12/2018 Atherosclerosis Of [place] Ar 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 08/08/2017 Hyperlipidemia 07/22/2017 Ulcer Leg Left 04/19/2017 Ulcer Toe Left 04/19/2017 Atherosclerosis Of [place] Ar teries Of Left Leg With Ulceration Of Unspecified Site 04/19/2017 Peripheral Arterial Disease 02/16/2017 Hypertension NOS 02/16/2017 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 09/23/2016 Overview: Hypertension (HTN) And CKD Stage 1-4 Continuous Mining Machine Operator Use Of Insulin Active 09/23/2016 Overview: Continuous Mining Machine Operator Use Of Insulin Active Depression Major Recurrent [...] week 03/24/2021 How often do you attend sabianist or mandaen serv ices? Never 03/24/2021 Do you belong to any clubs o r organizations such as sabianist groups, unions, fraternal or athletic groups, or [...] Answer Date Recorded PHQ-2 Score 0 10/20/2018 [place] of Occupat ional Health - Occupational Stress [...] your living situation today? I have a [facility] place to live 10/26/2022 Education Answer Date Recorded What is the highest level of school you have completed or the highest degree you have received? 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/2021 8:13 PM PLANT HEALTH CARE TECHNICIAN Gender Identity Male 08/31/2019 2:40 PM CDT [...] on file Medical Devices Implanted Type Area Rubber Calender Helper Device Identifier Shelf Expiration Date Model / Serial / Lot Patch Vasc Bovine.08cm X 8cm - Flores [id number] Implanted:Qty: 1 on 04/04/2017 Mesh or Patch Other/Legacy - See Implant Description Synovis Description:Device Manufactu rer - Synovis. Body Location - Other. Vascular. Device Status Text - [id number]. Ocular Lens-10/29/2007 Implanted:10/28 by Nato Dougherty, JULIÁN, C.N.P., R.N. (Quantity not on file) Ocular Lens Bilateral: Eye Description:Cataract extract ion and insertion of intraocular lens 06/22/2016 09:27 - [employer] DOUGHERTY VOICE NETWORK ENGINEER PEARL TECHNICIAN bilateral Conversions - Default Historical Implant Device Implanted:03/04 (Quantity not on file) Ocular Lens Right: Eye Description:Body Location - Eye R. Eye L. Eye R. Device Status Text - OculrLens. Conversions - Default Historical Implant Device Implanted:05/27 (Quantity not on file) Ocular Lens Left: Eye Description:Body Location - Eye L. Device Status Text - OculrLens. Stent [id number] [id number] - [id number] Implanted:Qty: 1 on 03/04/2017 Vascular Graft Other/Legacy - See Implant Description [place] Description:Device Manufactu rer - [employer] [place] [employer] Body Location - Other. n/a. Device Status Text - [id number]. Stent Zilver Ptx 6mm X 60mm - [id number] Implanted:Qty: 1 on 04/04/2017 Vascular Stent Other/Legacy - See Implant Description [employer] Description:Device Manufactu rer - [employer]. Body Location - Other. Left. Device Status Text - [id number]. Stent Zilver Ptx 6mm X 80mm - Flores [id number] Implanted:Qty: 1 on 08/31/2017 Vascular Stent Right: Other/Legacy - See Implant Description [employer] / [id number] / Description:Device Manufactu rer - [employer]. Body Location - Right. Device Status Text - [id number]. Stnt Innova Otw [id number] - [id number] Implanted:Qty: 1 on 04/18/2018 by Kemar Velásquez M[facility] at [facility] Vascular Stent [employer] 05/23/2020 [id number] / / [id number] Stnt Innova Otw [id number] - [id number] Implanted:Qty: 1 on 05/11/2019 by Kemar Velásquez M.B.B.S[facility] at [facility] Vascular Stent Left: Leg [employer] 09/05/2020 [id number] / / [id number] Advance Directives For more information, please contact: [phone] Latest Code Status on File Code Status [...] Answer Comments Full Code: Discussed Care Teams Tray Casting Machine Operator Relationship Specialty Start Date End Date Elsewhere, Pcp PCP - General Family Medicine 01/29/20
--- OUTSIDE RECORDS SUMMARY | 2023-06-06 08:35 | XMS_ITS | Clinical Summary ---
Author Name Unknown Organization [facility] Address [address] [place] [address] Care Team Providers Care Assistant Service Manager Name Role Phone Elsewhere, Pcp Primary Care Provider Unavailabl e Source Comments Patient records contain information from all sites at [facility]. For routine questions regarding patient records, call [phone] during business hours, M-F 8:00 AM - 5:00 PM Central Time. Record requests for emergency care only can be directed to [phone] at any time.[facility] Allergies Active Allergy Reactions Criticality Noted Date Comments Gabapentin Other (see comments) Medium 08/04/2020 Dizzy, memory issue Morphine Itching,Rash Medium 02/14/2012 itchy Pregabalin Anaphylaxis High 02/16/2017 swell Bsehkee-Yuq-Ibg Reductase Inhibitors Myalgia Low 02/13/2014 Medications Medication [...] TAKE ONE CAPSULE BY MOUTH EVERY DAY DIRECTOR OF OPTIMIZATION 0 01/14/2022 Active amLODIPine (NORVASC) 5 mg [...] 04/21/2018 Restless Leg Syndrome 01/12/2018 Atherosclerosis Of [place] Ar 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 08/08/2017 Hyperlipidemia 07/22/2017 Ulcer Leg Left 04/19/2017 Ulcer Toe Left 04/19/2017 Atherosclerosis Of [place] Ar teries Of Left Leg With Ulceration Of Unspecified Site 04/19/2017 Peripheral Arterial Disease 02/16/2017 Hypertension NOS 02/16/2017 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 09/23/2016 Overview: Hypertension (HTN) And CKD Stage 1-4 Government Operations Consultant Use Of Insulin Active 09/23/2016 Overview: Fdc Use Of Insulin Active Depression Major Recurrent Moderate 06/22/2016 Overview: Depression Major Recurrent Moderate Diabetes Mellitus Type 2 Wit h Other Circulatory Complication Hyperglycemic 06/22/2016 Overview: DM2 Peripheral Neuropathy Uncontrolled Encounters Date Type Department Care Team Description 04/26/2023 Orders Only Division of Nephrology and Hypertension in [place], [place] [address] [place] [address] Haseeb Menon Jr. D.O. 04/15/2023 Orders Only Division of Nephrology and Hypertension in [place], [place] [address] [place] [address] Haseeb Menon Jr., D.O. Chronic Kidney Disease Stage 5 Glomerular Filtration Rate Less Than 15 (HCC) (Primary Dx); 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 (HCC); Sleep Disorder 03/21/2023 Orders Only Division of Nephrology and Hypertension in [place], [place] [address] [place] [address] Haseeb Menon Jr. D.O. 03/13/2023 Refill Division of Nephrology and Hypertension in [place], [place] [address] [place] [address] Haseeb Menon Jr., D.O. Med Refill from Last 3 Months Immunizations Name Administration [...] week 03/24/2021 How often do you attend oriental orthodox or lutheran serv ices? Never 03/24/2021 Do you belong to any clubs o r organizations such as oriental orthodox groups, unions, fraternal or athletic groups, [...] Answer Date Recorded PHQ-2 Score 0 10/20/2018 [facility] of Occupat ional Health - Occupational [...] your living situation today? I have a [facility] place to live 10/26/2022 Education Answer Date Recorded What is the highest level of school you have completed or the highest degree you have received? 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/2021 8:13 PM INSTRUMENT TECHNICIAN HELPER Gender Identity Male 08/31/2019 2:40 PM [...] Screen (Annual) 05/16/2023 Hemoglobin A1C 05/28/2023 11/25/2022, 04/2 08/2022, 02/10/2021, Additional history exists Creatinine Level [...] history exists Medical Devices Implanted Type Area Solar Designer/Installer Device Identifier Shelf Expiration Date Model / Serial / Lot Patch Vasc Bovine.08cm X 8cm - Flores [id number] Implanted:Qty: 1 on 04/04/2017 Mesh or Patch Other/Legacy - See Implant Description Synovis Description:Device Manufactu rer - Synovis. Body Location - Other. Vascular. Device Status Text - [id number]. Ocular Lens-10/29/2007 Implanted:10/28 by Myrom, Nato J, FURNITURE MANAGER, C.N.P., R.N. (Quantity not on file) Ocular Lens Bilateral: Eye Description:Cataract extract ion and insertion of intraocular lens 06/22/2016 09:27 - [employer] DOUGHERTY FURNITURE MANAGER TENTER bilateral Conversions - Default Historical Implant Device Implanted:03/04 (Quantity not on file) Ocular Lens Right: Eye Description:Body Location - Eye R. Eye L. Eye R. Device Status Text - OculrLens. Conversions - Default Historical Implant Device Implanted:05/27 (Quantity not on file) Ocular Lens Left: Eye Description:Body Location - Eye L. Device Status Text - OculrLens. Stent [id number] [id number] - [id number] Implanted:Qty: 1 on 03/04/2017 Vascular Graft Other/Legacy - See Implant Description [place] Description:Device Manufactu rer - [employer] [place] [employer] Body Location - Other. n/a. Device Status Text - [id number]. Stent Zilver Ptx 6mm X 60mm - Flores [id number] Implanted:Qty: 1 on 04/04/2017 Vascular Stent Other/Legacy - See Implant Description [employer] Description:Device Manufactu rer - [employer]. Body Location - Other. Left. Device Status Text - [id number]. Stent Zilver Ptx 6mm X 80mm - [place] [id number] Implanted:Qty: 1 on 08/31/2017 Vascular Stent Right: Other/Legacy - See Implant Description [employer] / [id number] / Description:Device Manufactu rer - [employer]. Body Location - Right. Device Status Text - [id number]. Stnt Innova Otw [id number] - [id number] Implanted:Qty: 1 on 04/18/2018 by Kemar Velásquez M.B.B.S. at [facility] Vascular Stent [employer] 05/23/2020 [id number] / / [id number] Stnt Innova Otw [id number] - [id number] Implanted:Qty: 1 on 05/11/2019 by Kemar Velásquez M.B.B.S. at [facility] Vascular Stent Left: Leg [employer] 09/05/2020 [id number] / / [id number] Advance Directives For more information, please contact: [phone] Latest Code Status on File Code Status [...] Answer Comments Full Code: Discussed Care Teams Assistant Service Manager Relationship Specialty Start Date End Date Elsewhere, Pcp PCP - General Family Medicine 01/29/20
--- OUTSIDE RECORDS SUMMARY | 2023-06-06 08:35 | XMS_ITS ---
Author Name Unknown Organization [facility] Address [address] [place] [address] Care Team Providers Care Delinquency Prevention Social Worker Name Role Phone Unavailable Unavailable Unavailable Surgery Details Not on file Complications Check Surgery Details section. Procedure Estimated Blood Loss Check Surgery Details section. Procedure Findings Check Surgery Details section. Procedure Specimens Taken Check Surgery Details section.
--- OUTSIDE RECORDS SUMMARY | 2023-06-06 08:35 | XMS_ITS | Clinical Summary ---
Author Name Unknown Organization [facility] Address [place], [place] [address] Care Team Providers Care Rehabilitation Psychologist Name Role Phone Casa Lucia MD Unavailable Unavailable Rudy Riddle MD Unavailable [phone] Ruyd Riddle MD Primary Care Provider + Allergies Active Allergy Reactions Criticality Noted Date Comments Gabapentin Other - Describe In Comment Field Medium 08/04/2020 Dizzy, memory issue Dizzy, memory issue Morphine Itching 02/04/2010 After 3 days of use Pregabalin Anaphylaxis,Itching High 02/16/2017 swell swell Mrefaee-Kcb-Nwu Reductase Inhibitors Myalgia 02/13/2014 Medications Medication Sig [...] Comments Blood Pressure 162/87 07/21/2022 9:21 PM MANAGER RADIATION Pulse 100 07/21/2022 9:21 PM MANAGER RADIATION Temperature 37.1 ??C (98.8 ??F) 07/21/2022 8:51 PM CS T Respiratory Rate 18 07/21/2022 8:51 PM MANAGER RADIATION Oxygen Saturation 96% 07/21/2022 9:21 PM MANAGER RADIATION Inhaled Oxygen Concentration - - Weight 83.9 kg (185 lb) 07/21/2022 5:35 PM MANAGER RADIATION Height 175.3 cm (5' 9) 07/21/2022 5:35 PM MANAGER RADIATION Body Mass Index 27.32 07/21/2022 5:35 PM MANAGER RADIATION Plan of Treatment Health Maintenance Due Date [...] age 77 05/12/203205/12, 02/04/2006 [facility] Tdap Completed 08/16/2016 Pneumococcal series for age [...] Preferences, Provider to review later Care Teams Rehabilitation Psychologist Relationship Specialty Start Date End Date Rudy Riddle MD [address] [place] [address] PCP - General Family Practice 05/25/22 Casa Lucia MD [address] [facility] [address] [place] [address] Ophthalmology Ophthalmology Surgery 12/22/11 Rudy Riddle MD [address] [facility] [place] [address] Family Practice 05/07/22
--- OUTSIDE RECORDS SUMMARY | 2023-06-06 08:36 | XMS_ITS | Encounter Summary ---
Author Name Unknown Organization [facility] Address [address] [place] [address] Care Team Providers Care Cleaner Industrial Name Role Phone Elsewhere, Pcp Primary Care Provider Unavailabl e Encounter Details Date Type Department Care Team (Late st Contact Info) Description 02/16/2023 Orders Only Division of Endocrinology in [place], [place] [address] [place] [phone] Martina Da Silva, JULIÁN, C.N.P. [address] [place] [address] Social History Tobacco Use Types Packs/Day Years [...] How often do you attend sabianist or mosque serv ices? Never 03/24/2021 Do [...] Answer Date Recorded PHQ-2 Score 0 10/20/2018 [facility] of Occupat ional Health - Occupational Stress [...] your living situation today? I have a [facility] place to live 10/26/2022 Education Answer Date Recorded What is the highest level of school you have completed or the highest degree you have received? 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/2021 8:13 PM SIDEROGRAPHER Gender Identity Male 08/31/2019 2:40 PM CDT Sexual Orientation Straight 08/31/2019 2: 40 PM CDT documented as of this encounter Plan of Treatment Not on file documented as of this encounter Visit Diagnoses Not on filedocumented in this encounter Additional Health Concerns Assessment Noted Time PHQ-9 Depression Total Score: 3 01/04/20 18 10:38 AM CDT documented as of this encounter Care Teams Cleaner Industrial Relationship Specialty Start Date End Date Elsewhere, Pcp PCP - General Family Medicine 01/29/20 documented as of this encounter
--- OUTSIDE RECORDS SUMMARY | 2023-06-06 08:36 | XMS_ITS | Encounter Summary ---
Author Name Unknown Organization [facility] Address [address] [place] [address] Care Team Providers Care Rfid Systems Architect Name Role Phone Elsewhere, Pcp Primary Care Provider Unavailabl e Reason for Referral * Outpatient (Routine) - Closed Specialty Diagnoses / Procedures Referred By Robi hong Referred To Contact Diagnoses Follow Up Examination Status Post Surgery Peripheral Arterial Disease (HCC) Procedures Lower Extremity Arterial (MIMI) - Exercise (Claudication) Jayjay Pak P.A.-C. [address] [place] [phone] [facility] Referral ID Status Reason Start Date Expiration Date Visits Re quested Visits Authorized [id number] Closed 02/23/2022 02/23/2023 1 1 Reason for Visit * Outpatient (Routine) - Closed Specialty Diagnoses / Procedures Referred By Robi hong Referred To Contact Diagnoses Follow Up Examination Status Post Surgery Peripheral Arterial Disease (HCC) Procedures Lower Extremity Arterial (MIMI) - Exercise (Claudication) Jayjay Pak P.A.-C. [address] [place] [phone] [facility] Referral ID Status Reason Start Date Expiration Date Visits Re quested Visits Authorized [id number] Closed 02/23/2022 02/23/2023 1 1 Encounter Details Date Type Department Care Team (Latest Contact Info) Description 03/03/2023 8:01 AM CDT - 03/03/2023 8:20 AM CDT Hospital Encounter Department of Vascular Medicine in [place], [place] [address] [place] [address] Jayjay Pak P.A.-C. [address] [place] [address] Follow Up Examination Status Post Surgery; Peripheral [...] How often do you attend voodoo or yazidism serv ices? Never 03/24/2021 Do you belong [...] Answer Date Recorded PHQ-2 Score 0 10/20/2018 [facility] [place] of Occupat ional Health - Occupational Stress [...] Sex Assigned at Male 03/24/2021 8:13 PM ANAESTHETIC TECHNICIAN Gender Identity Male 08/31/2019 2:40 PM [...] TAKE ONE CAPSULE BY MOUTH EVERY DAY ASSISTED 0 01/14/2022 nortriptyline (PAMELOR) 50 mg capsule [...] documented as of this encounter Care Teams Rfid Systems Architect Relationship Specialty Start Date End Date Elsewhere, Pcp PCP - General Family Medicine 01/29/20 documented as of this encounter
--- OUTSIDE RECORDS SUMMARY | 2023-06-06 08:36 | XMS_ITS | Encounter Summary ---
Author Name Unknown Organization [facility] Address [address] [place] [address] Care Team Providers Care Business Analyst Ecommerce Name Role Phone Elsewhere, Pcp Primary Care Provider Unavailabl e Reason for Referral * Outpatient (Routine) - Authorized Specialty Diagnoses / Procedures Referred By Robi hong Referred To Contact Sleep Medicine Diagnoses Chronic Kidney Disease Stage 5 Glomerular Filtration Rate Less Than 15 (HCC) 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 (HCC) Sleep Disorder Haseeb Menon Jr., D.O. [address] [place] [address] [facility] Referral ID Status Reason Start Date Expiration Date Visits Requested Visits Authorized [id number] Authorized Specialty Services Required 04/15/2023 04/14/2024 1 1 DESIGN AND INSTALLATION TECHNICIAN Encounter Details Date Type Department Care Team (Late st Contact Info) Description 04/15/2023 Orders Only Division of Nephrology and Hypertension in [place], [place] [address] [place] [address] Haseeb Menon Jr., D.O. [address] [place] [phone] Chronic Kidney Disease Stage 5 Glomerular Filtration [...] week 03/24/2021 How often do you attend yarsani or anglican serv ices? Never 03/24/2021 Do you belong to any clubs o r organizations such as yarsani groups, unions, fraternal or athletic groups, or [...] living situation today? I have a [facility] place to live 10/26/2022 Education Answer Date Recorded What is the highest level of school you have completed or the highest degree you have received? 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/2021 8:13 PM PV DESIGN AND INSTALLATION TECHNICIAN Gender Identity Male 08/31/2019 2:40 PM [...] documented as of this encounter Care Teams Business Analyst Ecommerce Relationship Specialty Start Date End Date Elsewhere, Pcp PCP - General Family Medicine 01/29/20 documented as of this encounter
--- OUTSIDE RECORDS SUMMARY | 2023-06-06 08:36 | XMS_ITS | Encounter Summary ---
Author Name Unknown Organization [facility] Address [address] [place] [address] Care Team Providers Care Quality Control Engineer Name Role Phone Elsewhere, Pcp Primary Care Provider Unavailabl e Encounter Details Date Type Department Care Team (Late st Contact Info) Description 04/26/2023 Orders Only Division of Nephrology and Hypertension in [place], [place] [address] [place] [address] Haseeb Menon Jr., D.O. [address] [place] [address] Social History Tobacco Use Types Packs/Day Years [...] week 03/24/2021 How often do you attend quaker or anabaptism serv ices? Never 03/24/2021 Do you belong to any clubs o r organizations such as quaker groups, unions, fraternal or athletic groups, or [...] 10/20/2018 [facility] of Occupat ional Health - [...] your living situation today? I have a [facility] place to live 10/26/2022 Education Answer Date Recorded What is the highest level of school you have completed or the highest degree you have received? 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/2021 8:13 PM SPRING FORMER HAND Gender Identity Male 08/31/2019 2:40 PM CDT Sexual Orientation Straight 08/31/2019 2: 40 PM CDT documented as of this encounter Plan of Treatment Not on file documented as of this encounter Visit Diagnoses Not on filedocumented in this encounter Additional Health Concerns Assessment Noted Time PHQ-9 Depression Total Score: 3 01/04/20 18 10:38 AM CDT documented as of this encounter Care Teams Quality Control Engineer Relationship Specialty Start Date End Date Elsewhere, Pcp PCP - General Family Medicine 01/29/20 documented as of this encounter
--- OUTSIDE RECORDS SUMMARY | 2023-06-06 08:36 | XMS_ITS | Encounter Summary ---
Author Name Unknown Organization [facility] Address [address] [place] [address] Care Team Providers Care Group Activities Aide Name Role Phone Elsewhere, Pcp Primary Care Provider Unavailabl e Reason for Visit * Outpatient (Routine) - Closed Specialty Diagnoses / Procedures Referred By Robi t Referred To Contact Vascular Medicine Jayjay Pak, XiA.-CFei [address] [place] [phone] [facility] Referral ID Status Reason Start Date Expiration Date Visits Re quested Visits Authorized [id number] Closed 02/23/2022 02/22/2025 1 1 Encounter Details Date Type Department Care Team (Late st Contact Info) Description 03/03/2023 1:00 PM CDT Office Visit Department of Vascular Medicine in [place], [place] [address] [place] [phone] Jayjay Pak, PFeiAFei-CFei [address] [place] [phone] Follow Up Examination Status Post Surgery (Primary [...] week 03/24/2021 How often do you attend catholic or taoism serv ices? Never 03/24/2021 Do you belong to any clubs o r organizations such as catholic groups, unions, fraternal or athletic groups, [...] Answer Date Recorded PHQ-2 Score 0 10/20/2018 [facility] of Occupat ional Health - Occupational Stress [...] your living situation today? I have a [facility] place to live 10/26/2022 Education Answer Date Recorded What is the highest level of school you have completed or the highest degree you have received? 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/2021 8:13 PM BREEDER HEN SERVICE TECHNICIAN Gender Identity Male 08/31/2019 2:40 PM [...] his own. He has not seen a heel splitter recently. Overall the swelling and discoloration seems [...] artery stents. LEFT: New stenosis of the [place] proximal superficial femoral artery. Widely patent mid SFA stents. Similar stenosis in the posterior tibial artery. U/S: 1. Patent bilateral iliac artery stents with unchanged stenoses on the right. 2. 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 [...] colleague's recommendations, and he will see a heel splitter. I will follow up with him in [...] as of this encounter Care Teams Group Activities Aide Relationship Specialty Start Date End Date Elsewhere, Pcp PCP - General Family Medicine 01/29/20 documented as of this encounter
--- OUTSIDE RECORDS SUMMARY | 2023-06-06 08:36 | XMS_ITS | Encounter Summary ---
Author Name Unknown Organization [facility] Address [address] [place] [address] Care Team Providers Care County Library Director Name Role Phone Elsewhere, Pcp Primary Care Provider Unavailabl e Reason for Visit * Reason Comments Med Refill Encounter Details Date Type Department Care Team ([facility] st Contact Info) Description 03/13/2023 Refill Division of Nephrology and Hypertension in [place], [place] [address] [place] [address] Haseeb Menon Jr., D.O. [address] [place] [address] Med Refill Social History Tobacco Use Types [...] week 03/24/2021 How often do you attend sikhism or druze serv ices? Never 03/24/2021 Do you belong to any clubs o r organizations such as sikhism groups, unions, fraternal or athletic groups, or [...] Answer Date Recorded PHQ-2 Score 0 10/20/2018 [facility] - Occupational Stress Questionnaire Answer [...] your living situation today? I have a [facility] place to live 10/26/2022 Education Answer Date Recorded What is the highest level of school you have completed or the highest degree you have received? 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/2021 8:13 PM WORK CHECKER Gender Identity Male 08/31/2019 2:40 PM CDT Sexual Orientation Straight 08/31/2019 2: 40 PM CDT documented as of this encounter Plan of Treatment Not on file documented as of this encounter Visit Diagnoses Not on filedocumented in this encounter Additional Health Concerns Assessment Noted Time PHQ-9 Depression Total Score: 3 01/04/20 18 10:38 AM CDT documented as of this encounter Care Teams County Library Director Relationship Specialty Start Date End Date Elsewhere, Pcp PCP - General Family Medicine 01/29/20 documented as of this encounter
--- OUTSIDE RECORDS SUMMARY | 2023-06-06 08:36 | XMS_ITS | Encounter Summary ---
Author Name Unknown Organization [facility] Address [address] [place] [address] Care Team Providers Care Portable Track Crew Chief Name Role Phone Elsewhere, Pcp Primary Care Provider Unavailabl e Reason for Referral * Outpatient (Routine) - Closed Specialty Diagnoses / Procedures Referred By Robi hong Referred To Contact Diagnoses Follow Up Examination Status Post Surgery Peripheral Arterial Disease (HCC) Procedures US Lower Extremity Arteries Bilateral US Lower Extremity Artery Graft Bilateral Jayjay Pak P.A.-C. [address] [place] [phone] [facility] Referral ID Status Reason Start Date Expiration Date Visits Re quested Visits Authorized [id number] Closed 02/23/2022 02/23/2023 1 1 Reason for Visit * Outpatient (Routine) - Closed Specialty Diagnoses / Procedures Referred By Robi hong Referred To Contact Diagnoses Follow Up Examination Status Post Surgery Peripheral Arterial Disease (HCC) Procedures US Lower Extremity Arteries Bilateral US Lower Extremity Artery Graft Bilateral Jayjay Pak P.A.-C. [address] [place] [address] [facility] Referral ID Status Reason Start Date Expiration Date Visits Re quested Visits Authorized [id number] Closed 02/23/2022 02/23/2023 1 1 Encounter Details Date Type Department Care Team (Latest Contact Info) Description 03/03/2023 8:21 AM CDT - 03/03/2023 11:59 PM CDT Hospital Encounter Department of Radiology, [facility], in [place], [place] [address] [place] [address] Jayjay Pak P.A.-C. 200 [place] [address] Follow Up Examination Status Post Surgery; Peripheral [...] How often do you attend advent or gnosticism serv ices? Never 03/24/2021 Do you belong [...] 10/20/2018 [facility] of Occupat ional Health - Occupational [...] Sex Assigned at Male 03/24/2021 8:13 PM WOMEN'S STUDIES PROFESSOR Gender Identity Male 08/31/2019 2:40 PM CDT [...] LEFT: New stenosis of the [place] proximal superficial femoral artery. Widely patent mid [...] femoral: New elevated Doppler velocities in the [place] proximal vessel (up to 166 cm/sec), consistent [...] LEFT: New stenosis of the [place] proximal superficial femoral artery.Widely patent mid SFA [...] documented as of this encounter Care Teams Portable Track Crew Chief Relationship Specialty Start Date End Date Elsewhere, Pcp PCP - General Family Medicine 01/29/20 documented as of this encounter
--- OUTSIDE RECORDS SUMMARY | 2023-06-06 08:36 | XMS_ITS | Encounter Summary ---
Author Name Unknown Organization [facility] Address [address] [place] [address] Care Team Providers Care Fan Runner Name Role Phone Elsewhere, Pcp Primary Care Provider Unavailabl e Reason for Referral * Outpatient (Routine) - Closed Specialty Diagnoses / Procedures Referred By Robi hong Referred To Contact Diagnoses Follow Up Examination Status Post Surgery Peripheral Arterial Disease (HCC) Procedures US Aorta Iliac Arteries Bilateral with Doppler Jayjay Pak P.A.-C. [address] [place] [phone] [facility] Referral ID Status Reason Start Date Expiration Date Visits Re quested Visits Authorized [id number] Closed 02/23/2022 02/23/2023 1 1 Reason for Visit * Outpatient (Routine) - Closed Specialty Diagnoses / Procedures Referred By Robi hong Referred To Contact Diagnoses Follow Up Examination Status Post Surgery Peripheral Arterial Disease (HCC) Procedures US Aorta Iliac Arteries Bilateral with Doppler Jayjay Pak P.A.-C. [address] [place] [phone] [facility] Referral ID Status Reason Start Date Expiration Date Visits Re quested Visits Authorized [id number] Closed 02/23/2022 02/23/2023 1 1 Encounter Details Date Type Department Care Team (Latest Contact Info) Description 03/03/2023 8:00 AM CDT Hospital Encounter Department of Radiology, [facility], in [place], [place] [address] [place] [address] Jayjay Pak P.A.-C. 200 [place] [address] Follow Up Examination Status Post Surgery; Peripheral [...] week 03/24/2021 How often do you attend taoism or amish serv ices? Never 03/24/2021 Do you belong to any clubs o r organizations such as taoism groups, unions, fraternal or athletic groups, or [...] Answer Date Recorded PHQ-2 Score 0 10/20/2018 [facility] of Occupat ional Health - Occupational [...] your living situation today? I have a [facility] place to live 10/26/2022 Education Answer Date Recorded What is the highest level of school you have completed or the highest degree you have received? 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/2021 8:13 PM MEDICAID ANALYST Gender Identity Male 08/31/2019 2:40 PM [...] TAKE ONE CAPSULE BY MOUTH EVERY DAY SYSTEMS ANALYST 0 01/14/2022 nortriptyline (PAMELOR) 50 mg capsule [...] on the right. 2. 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 [...] demonstrated are elevated Doppler velocities in the [place] external iliac artery (273 cm/s today, previously [...] stenoses on theright. 2. 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 Jayjay ETIENNE US PROCEDURE S documented in this encounter Visit Diagnoses Diagnosis Follow Up Examination Status Post Surgery Peripheral Arterial Disease (HCC) documented in this encounter Additional Health Concerns Assessment Noted Time PHQ-9 Depression Total Score: 3 01/04/20 18 10:38 AM CDT documented as of this encounter Care Teams Fan Runner Relationship Specialty Start Date End Date Elsewhere, Pcp PCP - General Family Medicine 01/29/20 documented as of this encounter
--- OUTSIDE RECORDS SUMMARY | 2023-06-06 08:36 | XMS_ITS | Encounter Summary ---
Author Name Unknown Organization [facility] Address [address] [place] [address] Care Team Providers Care Sail Cutter Name Role Phone Elsewhere, Pcp Primary Care Provider Unavailabl e Encounter Details Date Type Department Care Team (Latest Contact Info) Description 03/02/2023 10:30 AM CDT Clinical Communication Virtual Review in [place], [place] [address] [place], [place] [phone] Canceled Social History Tobacco Use Types Packs/Day [...] How often do you attend jewish or sabianist serv ices? Never 03/24/2021 Do you belong [...] Answer Date Recorded PHQ-2 Score 0 10/20/2018 [facility] [place] of Occupat ional Health - Occupational Stress [...] your living situation today? I have a [facility] place to live 10/26/2022 Education Answer Date Recorded What is the highest level of school you have completed or the highest degree you have received? 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/2021 8:13 PM RESPIRATORY CARE TECHNICIAN Gender Identity Male 08/31/2019 2:40 [...] documented as of this encounter Care Teams Sail Cutter Relationship Specialty Start Date End Date Elsewhere, Pcp PCP - General Family Medicine 01/29/20 documented as of this encounter
--- OUTSIDE RECORDS SUMMARY | 2023-06-06 08:36 | XMS_ITS | Encounter Summary ---
Author Name Unknown Organization [facility] Address [address] [place] [address] Care Team Providers Care Lumber Salvager Name Role Phone Elsewhere, Pcp Primary Care Provider Unavailabl e Encounter Details Date Type Department Care Team (Latest Contact Info) Description 02/17/2023 9:18 AM CDT - 02/17/2023 11:59 PM CDT Hospital Encounter Department of Laboratory Medicine in [place], [place] [address] [place] [address] Haseeb Menon Jr., D.O. [address] [place] [phone] 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 [...] How often do you attend buddhist or episcopal serv ices? Never 03/24/2021 Do you belong [...] Answer Date Recorded PHQ-2 Score 0 10/20/2018 [facility] [place] of Occupat ional Health - Occupational Stress [...] Sex Assigned at Male 03/24/2021 8:13 PM EMBOSSING TOOLSETTER Gender Identity Male 08/31/2019 2:40 PM CDT [...] TAKE ONE CAPSULE BY MOUTH EVERY DAY VAMP MARKER 0 01/14/2022 nortriptyline (PAMELOR) 50 mg capsule [...] Menon Jr., D.O. LAB URINE OR DERABLES [facility] [address] [place] [address], [facility] [place] [facility] [address] [place] [address] * (ABNORMAL) Urinalysis with Microscopic: Urine, Voided [...] 8.0 02/17/2023 10:03 AM CDT FB60 Specific [place] 1.015 1.001 - 1.035 02/17/2023 10:03 AM [...] Menon Jr., D.OFei LAB URINE OR DERABLES [facility] [address] [place] [address], [facility] FB60 [facility] [place] [address] [place] [address] documented in this encounter Visit Diagnoses Diagnosis 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 (HCC) 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) Anemia Of Chronic Renal Disease documented in this encounter Additional Health Concerns Assessment Noted Time PHQ-9 Depression Total Score: 3 01/04/20 18 10:38 AM CDT documented as of this encounter Care Teams Lumber Salvager Relationship Specialty Start Date End Date Elsewhere, Pcp PCP - General Family Medicine 01/29/20 documented as of this encounter
--- OUTSIDE RECORDS SUMMARY | 2023-06-06 08:36 | XMS_ITS | Encounter Summary ---
Author Name Unknown Organization [facility] Address [address] [place] [address] Care Team Providers Care Flight Communications Specialist Name Role Phone Elsewhere, Pcp Primary Care Provider Unavailabl e Encounter Details Date Type Department Care Team (Late st Contact Info) Description 03/21/2023 Orders Only Division of Nephrology and Hypertension in [place], [place] [address] [place] [address] Haseeb Menon Jr., D.O. [address] [place] [address] Social History Tobacco Use Types Packs/Day Years [...] often do you attend adventism or protestant serv ices? Never 03/24/2021 Do you belong [...] 10/20/2018 [facility] of Occupat ional Health - [...] living situation today? I have a [facility] place to live 10/26/2022 Education Answer Date Recorded What is the highest level of school you have completed or the highest degree you have received? 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/2021 8:13 PM SOLE ASSESSOR Gender Identity Male 08/31/2019 2:40 PM CDT Sexual Orientation Straight 08/31/2019 2: 40 PM CDT documented as of this encounter Plan of Treatment Not on file documented as of this encounter Visit Diagnoses Not on filedocumented in this encounter Additional Health Concerns Assessment Noted Time PHQ-9 Depression Total Score: 3 01/04/20 18 10:38 AM CDT documented as of this encounter Care Teams Flight Communications Specialist Relationship Specialty Start Date End Date Elsewhere, Pcp PCP - General Family Medicine 01/29/20 documented as of this encounter
--- OUTSIDE RECORDS SUMMARY | 2023-06-06 08:36 | XMS_ITS | Encounter Summary ---
Author Name Unknown Organization [facility] Address [address] [place] [address] Care Team Providers Care Calculating Machine Operator Name Role Phone Elsewhere, Pcp Primary Care Provider Unavailabl e Encounter Details Date Type Department Care Team (Latest Contact Info) Description 02/17/2023 9:18 AM CDT - 02/17/2023 11:59 PM CDT Hospital Encounter Department of Laboratory Medicine in [place], [place] [address] [place] [address] Haseeb Menon Jr., D.O. [address] [place] [address] 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 [...] week 03/24/2021 How often do you attend nondenominational or protestant serv ices? Never 03/24/2021 Do you belong to any clubs o r organizations such as nondenominational groups, unions, fraternal or athletic groups, or [...] Answer Date Recorded PHQ-2 Score 0 10/20/2018 [facility] [place] of Occupat ional Health - Occupational Stress [...] your living situation today? I have a [facility] place to live 10/26/2022 Education Answer Date Recorded What is the highest level of school you have completed or the highest degree you have received? 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/2021 8:13 PM HUMAN RESOURCES HR REPRESENTATIVE Gender Identity Male 08/31/2019 2:40 PM CDT [...] TAKE ONE CAPSULE BY MOUTH EVERY DAY BAND REAMER MACHINE OPERATOR 0 01/14/2022 nortriptyline (PAMELOR) 50 mg [...] Gold Plus, Blood (02/17/2023 9:35 AM CDT) [facility] QuantiFERON-TB Gold Plus Result Negative Negative 02/21/2023 12:00 PM CDT [facility] Comment: No interferon-gamma response to M. [...] AM CDT 02/19/2023 4:15 PM CDT Narrative [facility] - 02/21/2023 12:00 PM CDT Specimen Information: Specimen ID: [id number] Specimen Type: Blood Specimen Collection Start Date: 02/17/2023 ??9:35 AM Specimen Received Date: 02/19/2023 ??4:15 PM Specimen ID: [id number] Specimen Type: Blood Specimen Collection Start Date: 02/17/2023 ??9:35 AM Specimen Received Date: 02/19/2023 ??4:15 PM Specimen ID: [id number] Specimen Type: Blood Specimen Collection Start Date: 02/17/2023 ??9:35 AM Specimen Received Date: 02/19/2023 ??4:15 PM Specimen ID: [id number] Specimen Type: Blood Specimen Collection Start Date: 02/17/2023 ??9:35 AM Specimen Received Date: 02/19/2023 ??4:16 PM Estiven He Jr.O. LAB MICROBIO LOGY - BLOOD ORDERABLES [facility] [address] [place] [address], [facility] in [address] [address] * HBs Antibody, Serum (02/17/2023 9:35 AM CDT) Pathologist [facility] [place] HBs Antibody, S Negative 5:03 PM CDT [facility] Comment: ----REFERENCE VALUE---- Unvaccinated: Negative Vaccinated: Positive HBs Antibody, Quantitative, S <3.50 mIU/mL 02/17/2023 5:03 PM CDT [facility] Comment: ----REFERENCE VALUE---- <8.50: Negative 8.50-11.49: Indeterminate >=11.50: Positive Blood (Blood, Venous) 02/17/2023 9:35 AM CDT 02/17/2023 3:36 PM CDT Haseeb Menon Jr., D.O. LAB MICROBIO LOGY - BLOOD ORDERABLES Performing Organization Address [facility] Co de Phone Number [facility] [address] [place] [address], [facility] [place] [address] * Hepatitis B Surface Antigen (02/17/2023 9:35 AM CDT) [facility] HBs Antigen, S Nonreactive Nonreactive 02/17/2023 5:03 PM CDT [facility] Blood (Blood, Venous) 02/17/2023 9:35 AM CDT 02/17/2023 3:36 PM CDT Haseeb Menon Jr., D.O. LAB MICROBIO LOGY - BLOOD ORDERABLES Performing Organization Address [facility] Co de Phone Number [facility] [address] [place] [phone], [facility] [address] [place] [address] * HBc Total Ab, Serum (02/17/2023 9:35 AM CDT) Pathologist [facility] HBc Total Ab, S Negative Negative 02/19/2023 10:09 AM CDT [facility] Blood (Blood, Venous) 02/17/2023 9:35 AM CDT 02/19/2023 8:50 AM CDT Haseeb Menon Jr., D.O. LAB MICROBIO LOGY - BLOOD ORDERABLES [facility] [address] [place] [address] [facility] [address] [place] [address] * HCV Ab Scrn w/Reflex to HCV PCR, Serum (02/17/2023 9:35 AM CDT) Pathologist [facility] HCV Ab Screen, S Negative Negative 02/18/20 3:35 PM CDT [facility] Comment: Biotin has been identified by the electric cell tender as a potential interfering substance. Higher concentrations of biotin may be found in multivitamins, hair/nail supplements, and workout supplements. If the result does not match clinical observations, repeat testing after patient refrains from the use of supplements for at least 12 hours. Blood (Blood, Venous) 02/17/2023 9:35 AM CDT 02/17/2023 2:20 PM CDT Narrative [facility] - 02/17/2023 3:35 PM CDT Specimen Information: Specimen ID: [id number] Specimen Type: Blood Specimen Collection Start Date: 02/17/2023 ??9:35 AM Specimen Received Date: 02/17/2023 ??2:20 PM Specimen ID: [id number] Specimen Type: Blood Specimen Collection Start Date: 02/17/2023 ??9:35 AM Specimen Received Date: 02/17/2023 ??2:16 PM Haseeb Menon Jr., D.O. LAB MICROBIO LOGY - BLOOD ORDERABLES [facility] [address] [place] [address], [facility] in [place] [address] [place] [address] * (ABNORMAL) Renal Function Panel (02/17/2023 9:35 AM CDT) Pathologist [facility] [place] Potassium, P 4.4 3.6 - 5.2 mmol/L [...] AM CDT 02/17/2023 11:01 AM CDT Narrative [facility] - 02/17/2023 4:02 PM CDT Specimen Information: Specimen ID: [id number] Specimen Type: Blood Specimen Collection Start Date: 02/17/2023 ??9:35 AM Specimen Received Date: 02/17/2023 11:01 AM Specimen ID: [id number] Specimen Type: Blood Specimen Collection Start Date: 02/17/2023 ??9:35 AM Specimen Received Date: 02/17/2023 ??3:35 PM Haseeb Menon Jr., D.O. LAB BLOOD AD D-ON Performing Organization Address [facility] Co de Phone Number [facility] [address] [place] [address], [facility] in [place] [address] [place] [address] [facility] [place] [facility] [address] [place] [address] * (ABNORMAL) Iron and Total Iron-Binding Capacity [...] LAB BLOOD AD D-ON Performing Organization Address [facility] de Phone Number [facility] [address] [place] [address], [facility] - [facility] [address] [place] [address] * Ferritin (02/17/2023 9:35 AM CDT) Ferritin, S 385 31 - 409 mcg/L 02/17/2023 1:16 PM CDT [facility] Comment: Biotin has been identified by the electric cell tender as a potential interfering substance. Higher concentrations of biotin may be found in multivitamins, hair/nail supplements, and workout supplements. If the result does not match clinical observations, repeat testing after patient refrains from the use of supplements for at least 12 hours. Blood (Blood, Venous) 02/17/2023 9:35 AM CDT 02/17/2023 11:01 AM CDT Haseeb Menon Jr., D.O. LAB BLOOD AD D-ON [facility] [address] [place] [address], [facility] in [place] [address] [place] [address] * (ABNORMAL) CBC with Differential, Blood (02/17/2023 [...] LAB BLOOD AD D-ON Performing Organization Address City/State/[facility] Co de Phone Number [facility] [address] [place] [address], [facility] FB60 [facility] in [place] [address] [place] [address] documented in this encounter Visit Diagnoses Diagnosis 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 (HCC) 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) Anemia Of Chronic Renal Disease documented in this encounter Additional Health Concerns Assessment Noted Time PHQ-9 Depression Total Score: 3 01/04/20 18 10:38 AM CDT documented as of this encounter Care Teams Calculating Machine Operator Relationship Specialty Start Date End Date Elsewhere, Pcp PCP - General Family Medicine 01/29/20 documented as of this encounter
--- OUTSIDE RECORDS SUMMARY | 2023-06-06 08:37 | XMS_ITS | Encounter Summary ---
Author Name Unknown Organization [facility] Address [address] [place] [address] Care Team Providers Care High School Foreign Language Teacher Name Role Phone Elsewhere, Pcp Primary Care Provider Unavailabl e Encounter Details Date Type Department Care Team (Late st Contact Info) Description 02/16/2023 10:41 AM CDT Anesthesia Event [facility] OR [address] [place] [address] Uriel Lin M.D. [address] [place] [address] Anesthesia Record Procedure Summary Procedure Name Responsible [...] How often do you attend pentecostal or mu-ism serv ices? Never 03/24/2021 Do [...] Answer Date Recorded PHQ-2 Score 0 10/20/2018 [facility] - Occupational Stress Questionnaire Answer [...] your living situation today? I have a [facility] place to live 10/26/2022 Education Answer Date Recorded What is the highest level of school you have completed or the highest degree you have received? 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/2021 8:13 PM TRADITIONAL CHINESE HERBALIST Gender Identity Male 08/31/2019 2:40 PM CDT [...] Rate Less Than 15 (HCC) [N18.5] Location: [address] / [facility] in [place], [place] Providers: Tee Celeste M.D., Ph.D. Pertinent components of the patient's history including current problem list, medical history, surgical history, family history, social history, medications and allergies were reviewed. Present illness and pre-op diagnosis were confirmed. The planned surgery / procedure was verified with the patient / legal guardian. 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 Risks/Benefits/Alternatives of Blood transfusion discussed with patient [...] Procedure Summary Date: 02/16/23 Room / Location: [address] / [facility] in [place], [place] Anesthesia Start: 1041 Anesthesia Stop: Procedure: [...] Hydration status: euvolemic Norman Franklin M.D., Ph.D. Sharepoint Application Developer CA1 * Anesthesia Procedure Notes - Edward [...] fellow participated in the procedure, and the creative consultant was present for the entire procedure. [...] fellow participated in the procedure, and the creative consultant was present for the entire procedure. [...] documented as of this encounter Care Teams High School Foreign Language Teacher Relationship Specialty Start Date End Date Elsewhere, Pcp PCP - General Family Medicine 01/29/20 documented as of this encounter
--- OUTSIDE RECORDS SUMMARY | 2023-06-06 08:37 | XMS_ITS | Encounter Summary ---
Author Name Unknown Organization [facility] Address [address] [place] [address] Care Team Providers Care Life Skills Teacher Name Role Phone Elsewhere, Pcp Primary Care Provider Unavailabl e Encounter Details Date Type Department Care Team (Late st Contact Info) Description 02/16/2023 10:36 AM CDT - 02/16/2023 12:35 PM CDT Surgery [facility] OR [address] [place] [address] Tee Celeste M.D., Ph.D. [address] [place] [address] INSERTION Peritoneal DIALYSIS CATHETER Social History Tobacco [...] How often do you attend caodaism or mandaen serv ices? Never 03/24/2021 Do [...] Score 0 10/20/2018 [facility] - Occupational Stress Questionnaire Answer Date [...] your living situation today? I have a [facility] place to live 10/26/2022 Education Answer Date Recorded What is the highest level of school you have completed or the highest degree you have received? 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/2021 8:13 PM SOFT IRON INSPECTOR Gender Identity Male 08/31/2019 2:40 PM CDT [...] TAKE ONE CAPSULE BY MOUTH EVERY DAY SAWMILLING OPERATOR 0 01/14/2022 nortriptyline (PAMELOR) 50 mg [...] Filtration Rate Less Than 15 (HCC) A first aid nurse actively participated and was necessary for one [...] LAB POCT ORDERABLES- MANUAL Performing Organization Address City/[facility] [place] [facility] Co de Phone Number [facility] [address] [place] [address], [facility] PCDE [facility] [address] [place] [address] * (ABNORMAL) Glucose, POCT (02/16/2023 3:15 PM CDT) [facility] Glucose, POCT, B 191(H) 70 - 140 mg/dL 02/16/2023 3:17 PM CDT PCDE Site Capillary 02/16/2023 3:17 PM CDT PCDE Blood 02/16/2023 3:15 PM CDT 02/16/2023 3:17 PM CDT Unknown Provider LAB POCT ORDERABLES- MANUAL Performing Organization Address City/[facility] Co de Phone Number [facility] [address] [place] [address], [facility] PCDE [facility] [address] [place] [address] * DX Abdomen Portable Anterior Posterior 1 [...] Glucose, POCT (02/16/2023 2:15 PM CDT) Pathologist [facility] Glucose, POCT, B 173(H) 70 - 140 mg/dL 02/16/2023 2:17 PM CDT PCDE Site Capillary 02/16/2023 2:17 PM CDT PCDE Blood 02/16/2023 2:15 PM CDT 02/16/2023 2:17 PM CDT Unknown Provider LAB POCT ORDERABLES- MANUAL Performing Organization Address City/[facility]/ZIP Co de Phone Number [facility] [address] [facility] [address] [place] [address] * (ABNORMAL) Phosphorus Inorganic (02/16/2023 1:04 PM CDT) [facility] Phosphorus (Inorganic), S 6.2(H) 2.5 - 4.5 mg/dL 02/16/2023 1:58 PM CDT DTL Blood (Blood, Venous) 02/16/2023 1:04 PM CDT 02/16/2023 1:41 PM CDT Uriel Lin M.D. LAB BLOOD ADD-ON Performing Organization Address City/[facility] [place] [facility]/ZIP Co de Phone Number [facility] [address] [place] [address], [facility] DTFroedtert [facility] [address] [place] [address] * (ABNORMAL) CBC without Differential (02/16/2023 1:04 PM CDT) [facility] Hemoglobin 8.7(L) 13.2 - 16.6 g/dL 02/16/2023 [...] CDT Uriel Lin M.D. LAB BLOOD ADD-ON [facility] [address] [place] [address], [facility] METH [facility] [address] [place] [address] * (ABNORMAL) Basic Metabolic Panel (02/16/2023 1:04 [...] CDT Uriel Lin M.D. LAB BLOOD ADD-ON [facility] [address] [place] [address], [facility] METH [facility] [address] [place] [address] * Glucose, POCT (02/16/2023 12:04 PM CDT) Glucose, POCT, B 108 70 - 140 mg/dL 02/16/2023 12:07 PM CDT PCDE Site Capillary 02/16/2023 12:07 PM CDT PCDE Blood 02/16/2023 12:0 4 PM CDT 02/16/2023 12:07 PM CDT Unknown Provider LAB POCT ORDERABLES- MANUAL [facility] [address] [place] [address], [facility] PCDE [facility] [address] [place] [address] * Glucose, POCT (02/16/2023 10:23 AM CDT) Glucose, POCT, B 112 70 - 140 mg/dL 02/16/2023 10:33 AM CDT PCDE Site Capillary 02/16/2023 10:33 AM CDT PCDE Blood 02/16/2023 10:2 3 AM CDT 02/16/2023 10:33 AM CDT Unknown Provider LAB POCT ORDERABLES- MANUAL [facility] [address] [place] [address], [facility] PCDE [facility] POC [address] [place] [address] * Glucose, POCT (02/16/2023 8:23 AM CDT) Glucose, POCT, B 106 70 - 140 mg/dL 02/16/2023 8:24 AM CDT PCDE Blood 02/16/2023 8:23 AM CDT 02/16/2023 8:25 AM CDT Unknown Provider LAB POCT ORDERABLES- MANUAL Performing Organization Address City/[facility] [place] [facility] Co de Phone Number [facility] [address] [place] [address], [facility] PCDE [facility] [address] [place] [address] documented in this encounter Visit Diagnoses Diagnosis [...] 1114 (Given - Provid er: Glenn Sarabia, STAPLE CUTTER, SATURATION EQUIPMENT OPERATOR) insulin aspart U-100 injection 2 Units (NovoLOG [...] documented as of this encounter Care Teams Life Skills Teacher Relationship Specialty Start Date End Date Elsewhere, Pcp PCP - General Family Medicine 01/29/20 documented as of this encounter
--- OUTSIDE RECORDS SUMMARY | 2023-06-06 08:37 | XMS_ITS | Encounter Summary ---
Author Name Unknown Organization [facility] Address [address] [place] [address] Care Team Providers Care Branch Services Manager Name Role Phone Elsewhere, Pcp Primary Care Provider Unavailabl e Encounter Details Date Type Department Care Team (Late st Contact Info) Description 02/08/2023 Documentation Division of Nephrology and Hypertension in [place], [place] [address] [place] [address] Haseeb Menon Jr., D.O. [address] [place] [address] Social History Tobacco Use Types Packs/Day Years [...] How often do you attend amish or sabianist serv ices? 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
--- OUTSIDE RECORDS SUMMARY | 2023-06-06 08:37 | XMS_ITS | Encounter Summary ---
Author Name Unknown Organization [facility] Address [address] [place] [address] Care Team Providers Care Gasoline Tractor Operator Name Role Phone Elsewhere, Pcp Primary Care Provider Unavailabl e Reason for Visit * Reason Comments Med Refill Encounter Details Date Type Department Care Team (Late st Contact Info) Description 01/30/2023 Refill Division of Nephrology and Hypertension in [place], [place] [address] [place] [address] Farrah Barnes M.D., Ph.D. [address] [place] [address] Med Refill Social History Tobacco Use Types [...] How often do you attend scientologist or nondenominational serv ices? 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
--- OUTSIDE RECORDS SUMMARY | 2023-06-06 08:37 | XMS_ITS | Encounter Summary ---
Author Name Unknown Organization [facility] Address [address] [place] [address] Care Team Providers Care Sugar Refiner Name Role Phone Elsewhere, Pcp Primary Care Provider Unavailabl e Encounter Details Date Type Department Care Team (Latest Contact Info) Description 02/16/2023 7:12 AM CDT - 02/16/2023 6:10 PM CDT Hospital Encounter Outpatient Surgery Unit in [place], [place] [address] [place] [address] Tee Celeste M.D., Ph.D. [address] [place] [phone] Discharge Disposition: Home or Self Care Social [...] How often do you attend mormonism or yarsani serv ices? Never 03/24/2021 Do you belong [...] 0 10/20/2018 [facility] of Occupat ional Health - Occupational Stress [...] your living situation today? I have a [facility] place to live 10/26/2022 Education Answer Date Recorded What is the highest level of school you have completed or the highest degree you have received? 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 Gender Identity Male 08/31/2019 2:40 PM CDT [...] TAKE ONE CAPSULE BY MOUTH EVERY DAY BULK MATERIALS HANDLING PLANT OPERATOR 0 01/14/2022 nortriptyline (PAMELOR) 50 mg [...] Filtration Rate Less Than 15 (HCC) A administrative office assistant actively participated and was necessary for one [...] LAB POCT ORDERABLES- MANUAL Performing Organization Address City/[facility]/ZIP Co de Phone Number POC [facility] [address] [place], [place] [address] POC 200 [place] [address] * (ABNORMAL) Glucose, POCT (02/16/2023 3:15 PM CDT) Glucose, POCT, B 191(H) 70 - 140 mg/dL 02/16/2023 3:17 PM CDT PCDE Site Capillary 02/16/2023 3:17 PM CDT PCDE Blood 02/16/2023 3:15 PM CDT 02/16/2023 3:17 PM CDT Unknown Provider LAB POCT ORDERABLES- MANUAL Performing Organization Address City/[facility] Co de Phone Number POC [facility] [address] [place] [address], [facility] PCDE [facility] POC [address] [place] [address] * DX Abdomen Portable Anterior Posterior 1 [...] Glucose, POCT (02/16/2023 2:15 PM CDT) Pathologist [facility] Glucose, POCT, B 173(H) 70 - 140 mg/dL 02/16/2023 2:17 PM CDT PCDE Site Capillary 02/16/2023 2:17 PM CDT PCDE Blood 02/16/2023 2:15 PM CDT 02/16/2023 2:17 PM CDT Unknown Provider LAB POCT ORDERABLES- MANUAL Performing Organization Address City/[facility]/ZIP Co de Phone Number [facility]OC [facility] [address] [place] [address], [facility] PCDE [facility] POC [address] [place] [address] * (ABNORMAL) Phosphorus Inorganic (02/16/2023 1:04 PM CDT) [facility] Phosphorus (Inorganic), S 6.2(H) 2.5 - 4.5 mg/dL 02/16/2023 1:58 PM CDT DTL Blood (Blood, Venous) 02/16/2023 1:04 PM CDT 02/16/2023 1:41 PM CDT Uriel Lin M.D. LAB BLOOD ADD-ON [facility] [address] [place] [address], [facility] DTL [facility] [address] [place] [address] * (ABNORMAL) CBC without Differential (02/16/2023 1:04 PM CDT) Pathologist [facility] Hemoglobin 8.7(L) 13.2 - 16.6 g/dL 02/16/2023 [...] CDT Uriel Lin M.D. LAB BLOOD ADD-ON [facility] [address] [address], [facility] METH [facility] [address] [place] [address] * (ABNORMAL) Basic Metabolic Panel (02/16/2023 1:04 PM CDT) [facility] Potassium, P 3.6 3.6 - 5.2 mmol/L [...] M.D. LAB BLOOD ADD-ON Performing Organization Address City/[facility]/ZIP Co de Phone Number [facility] 200 [place] [address], [facility] METH [facility] [address] [place] [address] * Glucose, POCT (02/16/2023 12:04 PM CDT) Glucose, POCT, B 108 70 - 140 mg/dL 02/16/2023 12:07 PM CDT PCDE Site Capillary 02/16/2023 12:07 PM CDT PCDE Blood 02/16/2023 12:0 4 PM CDT 02/16/2023 12:07 PM CDT Unknown Provider LAB POCT ORDERABLES- MANUAL [facility] [address] [place] [address], [facility] PCDE [facility] POC 200 [place] [address] * Glucose, POCT (02/16/2023 10:23 AM CDT) Glucose, POCT, B 112 70 - 140 mg/dL 02/16/2023 10:33 AM CDT PCDE Site Capillary 02/16/2023 10:33 AM CDT PCDE Blood 02/16/2023 10:2 3 AM CDT 02/16/2023 10:33 AM CDT Unknown Provider LAB POCT ORDERABLES- MANUAL [facility] [address] [place] [address], [facility] PCDE [facility] POC [address] [place] [address] * Glucose, POCT (02/16/2023 8:23 AM CDT) [facility] Glucose, POCT, B 106 70 - 140 mg/dL 02/16/2023 8:24 AM CDT PCDE Blood 02/16/2023 8:23 AM CDT 02/16/2023 8:25 AM CDT Unknown Provider LAB POCT ORDERABLES- MANUAL Performing Organization Address City/[facility] Co de Phone Number POC [facility] [address] [place] [address], [facility] PCDE [facility] POC [address] [place] [address] documented in this encounter Visit Diagnoses Diagnosis [...] (Given - Provid er: Glenn Sarabia APRN, NEURO PSYCH SALES SPECIALIST) insulin aspart U-100 injection 2 Units (NovoLOG [...] documented as of this encounter Care Teams Sugar Refiner Relationship Specialty Start Date End Date Elsewhere, Pcp PCP - General Family Medicine 01/29/20 documented as of this encounter
--- OUTSIDE RECORDS SUMMARY | 2023-06-06 08:37 | XMS_ITS | Encounter Summary ---
Author Name Unknown Organization [facility] Address [address] [place] [address] Care Team Providers Care Windows Migration Technician Name Role Phone Elsewhere, Pcp Primary Care Provider Unavailabl e Encounter Details Date Type Department Care Team (Late st Contact Info) Description 02/08/2023 Orders Only Division of Nephrology and Hypertension in [place], [place] [address] [place] [address] Haseeb Menon Jr., D.O. [address] [place] [address] Diabetes Mellitus Type 2 With Other Circulatory [...] week 03/24/2021 How often do you attend sikh or congregational serv ices? 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 Higher concentrations [...] 3:29 PM CDT Specimen Information: Specimen ID: [id number] Specimen Type: Blood Specimen Collection Start Date: 02/14/2023 11:09 AM Specimen Received Date: 02/14/2023 ??3:29 PM Specimen ID: [id number] Specimen Type: Blood Specimen Collection Start Date: 02/14/2023 11:09 AM Specimen Received Date: 02/14/2023 ??2:48 PM Haseeb Menon Jr., D.O. LAB MICROBIO LOGY - BLOOD ORDERABLES Performing Organization Address City/[facility]/ZIP [place] [address], [facility] [place] [address] [place] [address] * HBc Total Ab, Serum (02/14/2023 11:09 AM CDT) Pathologist [facility] HBc Total Ab, S Negative Negative 02/15/2023 9:08 AM CDT [facility] Blood (Blood, Venous) 02/14/2023 11:09 AM CDT 02/15/2023 6:57 AM CDT Haseeb Menon Jr., D.O. LAB MICROBIO LOGY - BLOOD ORDERABLES [facility] [address] [place] [address] [facility] [address] [place] [address] * HBs Antibody, Serum (02/14/2023 11:09 AM CDT) Pathologist [facility] HBs Antibody, S Negative 4:34 PM CDT [facility] Comment: ----REFERENCE VALUE---- Unvaccinated: Negative Vaccinated: Positive HBs Antibody, Quantitative, S <3.50 mIU/mL 02/14/2023 4:34 PM CDT [facility] Comment: ----REFERENCE VALUE---- <8.50: Negative 8.50-11.49: Indeterminate >=11.50: Positive Blood (Blood, Venous) 02/14/2023 11:09 AM CDT 02/14/2023 3:28 PM CDT Haseeb Menon Jr., D.O. LAB MICROBIO LOGY - BLOOD ORDERABLES Performing Organization Address [facility]/ZIP Co de Phone Number [facility] [address] [place] [address], [facility] [place] [address] * Hepatitis B Surface Antigen (02/14/2023 11:09 AM CDT) Pathologist [facility] HBs Antigen, S Nonreactive Nonreactive 02/14/2023 4:34 PM CDT [facility] Blood (Blood, Venous) 02/14/2023 11:09 AM CDT 02/14/2023 3:28 PM CDT Haseeb Menon Jr., D.O. LAB MICROBIO LOGY - BLOOD ORDERABLES Performing Organization Address [facility] Co de Phone Number [facility] [address] [place] [address], [facility] [place] [address] * QuantiFERON-Tb Gold Plus, Blood (02/14/2023 11:09 AM CDT) Pathologist [facility] QuantiFERON-TB Gold Plus Result Negative Negative 02/17/2023 [...] 11:09 AM CDT 02/16/2023 11:08 AM CDT [facility] - 02/17/2023 12:53 PM CDT Specimen Information: Specimen ID: [id number] Specimen Type: Blood Specimen Collection Start Date: 02/14/2023 11:09 AM Specimen Received Date: 02/16/2023 11:08 AM Specimen ID: [id number] Specimen Type: Blood Specimen Collection Start Date: 02/14/2023 11:09 AM Specimen Received Date: 02/16/2023 11:08 AM Specimen ID: [id number] Specimen Type: Blood Specimen Collection Start Date: 02/14/2023 11:09 AM Specimen Received Date: 02/16/2023 11:08 AM Specimen ID: [id number] Specimen Type: Blood Specimen Collection Start Date: 02/14/2023 11:09 AM Specimen Received Date: 02/16/2023 11:08 AM Estiven He Jr.O. LAB MICROBIO LOGY - BLOOD ORDERABLES [facility] [address] [place] [address], [facility] in [address] [address] documented in this encounter Visit Diagnoses Diagnosis [...] documented as of this encounter Care Teams Windows Migration Technician Relationship Specialty Start Date End Date Elsewhere, Pcp PCP - General Family Medicine 01/29/20 documented as of this encounter
--- OUTSIDE RECORDS SUMMARY | 2023-06-06 08:37 | XMS_ITS | Encounter Summary ---
Author Name Unknown Organization [facility] Address [address] [place] [address] Care Team Providers Care Beam Builder Helper Name Role Phone Elsewhere, Pcp Primary Care Provider Unavailabl e Encounter Details Date Type Department Care Team (Latest Contact Info) Description 02/14/2023 10:18 AM CDT - 02/14/2023 11:59 PM CDT Hospital Encounter Department of Laboratory Medicine in [place], [place] [address] [place] [address] Haseeb Menon Jr., D.O. [address] [place] [phone] Diabetes Mellitus Type 2 With Other Circulatory [...] week 03/24/2021 How often do you attend baptist or tenriism serv ices? Never 03/24/2021 Do you belong to any clubs o r organizations such as baptist groups, unions, fraternal or athletic groups, or [...] Answer Date Recorded PHQ-2 Score 0 10/20/2018 [facility] [place] of Occupat ional Health - Occupational Stress [...] your living situation today? I have a [facility] place to live 10/26/2022 Education Answer Date Recorded What is the highest level of school you have completed or the highest degree you have received? 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 Higher concentrations of biotin may be found in multivitamins, hair/nail supplements, and workout supplements. If the result does not match clinical observations, repeat testing after patient refrains from the use of supplements for at least 12 hours. Blood (Blood, Venous) 02/14/2023 11:09 AM CDT 02/14/2023 3:29 PM CDT Narrative [facility] - 02/14/2023 3:29 PM CDT Specimen Information: Specimen ID: [id number] Specimen Type: Blood Specimen Collection Start Date: 02/14/2023 11:09 AM Specimen Received Date: 02/14/2023 ??3:29 PM Specimen ID: [id number] Specimen Type: Blood Specimen Collection Start Date: 02/14/2023 11:09 AM Specimen Received Date: 02/14/2023 ??2:48 PM Haseeb Menon Jr., D.O. LAB MICROBIO LOGY - BLOOD ORDERABLES [facility] [address] [place] [address], [place] [facility] [place] [address] [place] [address] * HBc Total Ab, Serum (02/14/2023 11:09 AM CDT) HBc Total Ab, S Negative Negative 02/15/2023 9:08 AM CDT [facility] Blood (Blood, Venous) 02/14/2023 11:09 AM CDT 02/15/2023 6:57 AM CDT Haseeb Menon Jr., D.O. LAB MICROBIO LOGY - BLOOD ORDERABLES Performing Organization Address City/[facility]/ZIP Co de Phone Number [facility] [address] [place] [address] [facility] [address] [place] [address] * HBs Antibody, Serum (02/14/2023 11:09 AM [...] D.O. LAB MICROBIO LOGY - BLOOD ORDERABLES [facility] [address] [place] [address], [facility] [address] [place] [address] * Hepatitis B Surface Antigen (02/14/2023 11:09 AM CDT) [facility] Antigen, S Nonreactive Nonreactive 02/14/2023 4:34 PM CDT [facility] Blood (Blood, Venous) 02/14/2023 11:09 AM CDT 02/14/2023 3:28 PM CDT Haseeb Menon Jr., D.O. LAB MICROBIO LOGY - BLOOD ORDERABLES [facility] [address] [place] [address], [facility] - [address] [address] * QuantiFERON-Tb Gold Plus, Blood (02/14/2023 11:09 AM CDT) [facility] QuantiFERON-TB Gold Plus Result Negative Negative 02/17/2023 [...] AM CDT 02/16/2023 11:08 AM CDT Narrative [facility] - 02/17/2023 12:53 PM CDT Specimen Information: Specimen ID: [id number] Specimen Type: Blood Specimen Collection Start Date: 02/14/2023 11:09 AM Specimen Received Date: 02/16/2023 11:08 AM Specimen ID: [id number] Specimen Type: Blood Specimen Collection Start Date: 02/14/2023 11:09 AM Specimen Received Date: 02/16/2023 11:08 AM Specimen ID: [id number] Specimen Type: Blood Specimen Collection Start Date: 02/14/2023 11:09 AM Specimen Received Date: 02/16/2023 11:08 AM Specimen ID: [id number] Specimen Type: Blood Specimen Collection Start Date: 02/14/2023 11:09 AM Specimen Received Date: 02/16/2023 11:08 AM Haseeb Menon Jr. DFeiO. LAB MICROBIO LOGY - BLOOD ORDERABLES [facility] [address] [place] [address], [facility] [address] documented in this encounter Visit Diagnoses Diagnosis Diabetes Mellitus Type 2 With Other Circulatory Complication Hyperglycemic (HCC) 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 (HCC) documented in this encounter Additional Health Concerns Assessment Noted Time PHQ-9 Depression Total Score: 3 01/04/20 18 10:38 AM CDT documented as of this encounter Care Teams Beam Builder Helper Relationship Specialty Start Date End Date Elsewhere, Pcp PCP - General Family Medicine 01/29/20 documented as of this encounter
--- OUTSIDE RECORDS SUMMARY | 2023-06-06 08:37 | XMS_ITS | Encounter Summary ---
Author Name Unknown Organization [facility] Address [address] [place] [address] Care Team Providers Care Collar Closer Lockstitch Name Role Phone Elsewhere, Pcp Primary Care [...] 2 Views Haseeb Menon Jr., D.O. [address] [place] [address] [facility] Region Referral ID Status Reason Start Date Expiration Date V isits Requested Visits Authorized [id number] Authorized 01/18/2023 01/18/2024 1 1 * Outpatient (Routine) - Authorized Specialty Diagnoses / Procedures Referred By Contac t Referred To Contact Diagnoses 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 (HCC) 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) Anemia Of Chronic Renal Disease Procedures ECG 12 Lead Haseeb Menon Jr., D.O. [address] [place] [address] [facility] Region Referral ID Status Reason Start Date Expiration Date V isits Requested Visits Authorized [id number] Authorized 01/18/2023 01/18/2024 1 1 Reason for Visit * Appointment Request (Routine) - Closed Specialty Diagnoses / Procedures Referred By Robi hong Referred To Contact Nephrology and Hypertension Referral ID Status Reason Start Date Expiration Date Visits Re quested Visits Authorized [id number] Closed 01/06/2023 01/06/2024 1 1 Encounter Details Date Type Department Care Team (Latest Contact Info) Description 01/18/2023 10:00 AM CDT External Outreach Division of Nephrology and Hypertension in [place], [place] [address] [place] [address] Haseeb Menon Jr., D.O. [address] [place] [address] 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 [...] week 03/24/2021 How often do you attend islam or restorationism serv ices? Never 03/24/2021 Do you belong to any clubs o r organizations such as islam groups, unions, fraternal or athletic groups, or [...] Answer Date Recorded PHQ-2 Score 0 10/20/2018 [facility] [place] of Occupat ional Health - Occupational Stress [...] your living situation today? I have a [facility] place to live 10/26/2022 Education Answer Date Recorded What is the highest level of school you have completed or the highest degree you have received? 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 When he appeared for [...] ONE CAPSULE BY MOUTH EVERY DAY MANAGER LEARNING, Disp: , Rfl: nortriptyline (PAMELOR) 50 mg [...] and CONNER approach 7. Coordinate care with [facility] dialysis team-e-mail sent #2 Diabetes [...] Gold Plus, Blood (02/17/2023 9:35 AM CDT) [facility] QuantiFERON-TB Gold Plus Result Negative Negative 02/21/2023 [...] AM CDT 02/19/2023 4:15 PM CDT Narrative [facility] - 02/21/2023 12:00 PM CDT Specimen Information: Specimen ID: [id number] Specimen Type: Blood Specimen Collection Start Date: 02/17/2023 ??9:35 AM Specimen Received Date: 02/19/2023 ??4:15 PM Specimen ID: [id number] Specimen Type: Blood Specimen Collection Start Date: 02/17/2023 ??9:35 AM Specimen Received Date: 02/19/2023 ??4:15 PM Specimen ID: [id number] Specimen Type: Blood Specimen Collection Start Date: 02/17/2023 ??9:35 AM Specimen Received Date: 02/19/2023 ??4:15 PM Specimen ID: [id number] Specimen Type: Blood Specimen Collection Start Date: 02/17/2023 ??9:35 AM Specimen Received Date: 02/19/2023 ??4:16 PM Haseeb Menon Jr., D.O. LAB MICROBIO LOGY - BLOOD ORDERABLES [facility] [address] [place] [address], [facility] [place] [address] * HBs Antibody, Serum (02/17/2023 9:35 AM CDT) [facility] HBs Antibody, S Negative 5:03 PM CDT AUST Comment: ----REFERENCE VALUE---- Unvaccinated: Negative Vaccinated: Positive HBs Antibody, Quantitative, S <3.50 mIU/mL 02/17/2023 5:03 PM CDT [facility] Comment: ----REFERENCE VALUE---- <8.50: Negative 8.50-11.49: Indeterminate >=11.50: Positive Blood (Blood, Venous) 02/17/2023 9:35 AM CDT 02/17/2023 3:36 PM CDT Haseeb Menon Jr., D.O. LAB MICROBIO LOGY - BLOOD ORDERABLES Performing Organization Address [facility] Co de Phone Number [phone] [place] [address] - [address] [address] * Hepatitis B Surface Antigen (02/17/2023 9:35 AM CDT) HBs Antigen, S Nonreactive Nonreactive 02/17/2023 5:03 PM CDT AUS Blood (Blood, Venous) 02/17/2023 9:35 AM CDT 02/17/2023 3:36 PM CDT Haseeb Menon Jr., D.O. LAB MICROBIO LOGY - BLOOD ORDERABLES Performing Organization Address [facility] Co de Phone Number [facility] [address] [place] [address], [address] [address] * HBc Total Ab, Serum (02/17/2023 9:35 AM CDT) HBc Total Ab, S Negative Negative 02/19/2023 10:09 AM CDT [facility] Blood (Blood, Venous) 02/17/2023 9:35 AM CDT 02/19/2023 8:50 AM CDT Haseeb Menon Jr., D.O. LAB MICROBIO LOGY - BLOOD ORDERABLES Performing Organization Address City/[facility]/ZIP Co de Phone Number [facility] [address] [address] [facility] [address] [place] [address] * HCV Ab Scrn w/Reflex to HCV PCR, Serum (02/17/2023 9:35 AM CDT) HCV Ab Screen, S Negative Negative 02/18/20 3:35 PM CDT [facility] Comment: Biotin has been identified by the parking line painter as a potential interfering substance. Higher concentrations of biotin may be found in multivitamins, hair/nail supplements, and workout supplements. If the result does not match clinical observations, repeat testing after patient refrains from the use of supplements for at least 12 hours. Blood (Blood, Venous) 02/17/2023 9:35 AM CDT 02/17/2023 2:20 PM CDT Narrative [facility] - 02/17/2023 3:35 PM CDT Specimen Information: Specimen ID: [id number] Specimen Type: Blood Specimen Collection Start Date: 02/17/2023 ??9:35 AM Specimen Received Date: 02/17/2023 ??2:20 PM Specimen ID: [id number] Specimen Type: Blood Specimen Collection Start Date: 02/17/2023 ??9:35 AM Specimen Received Date: 02/17/2023 ??2:16 PM Haseeb Menon Jr., D.O. LAB MICROBIO LOGY - BLOOD ORDERABLES [facility] [address] [place] [address], [facility] [place] [address] * (ABNORMAL) Renal Function Panel (02/17/2023 9:35 [...] AM CDT 02/17/2023 11:01 AM CDT Narrative [facility] - 02/17/2023 4:02 PM CDT Specimen Information: Specimen ID: [id number] Specimen Type: Blood Specimen Collection Start Date: 02/17/2023 ??9:35 AM Specimen Received Date: 02/17/2023 11:01 AM Specimen ID: [id number] Specimen Type: Blood Specimen Collection Start Date: 02/17/2023 ??9:35 AM Specimen Received Date: 02/17/2023 ??3:35 PM Haseeb Menon Jr., D.O. LAB BLOOD AD D-ON [facility] [address] [place] [address], [facility] OWAT [facility] [place] [address] [place] [address] AUST [facility] [address] [place] [address] * (ABNORMAL) Iron and Total Iron-Binding Capacity [...] D-ON Performing Organization Address City/[facility]/ZIP Co de Phone Number [facility] [address] [place] [address], [facility] AUS [facility] [address] [place] [address] * Ferritin (02/17/2023 9:35 AM CDT) Ferritin, S 385 31 - 409 mcg/L 02/17/2023 1:16 PM CDT OWAT Comment: Biotin has been identified by the parking line painter as a potential interfering substance. Higher concentrations of biotin may be found in multivitamins, hair/nail supplements, and workout supplements. If the result does not match clinical observations, repeat testing after patient refrains from the use of supplements for at least 12 hours. Blood (Blood, Venous) 02/17/2023 9:35 AM CDT 02/17/2023 11:01 AM CDT Haseeb Menon Jr., D.O. LAB BLOOD AD D-ON [facility] [address] [place] [address], [place] OWAT [facility] [place] [address] [place] [address] * (ABNORMAL) CBC with Differential, Blood (02/17/2023 9:35 AM CDT) Pathologist [facility] Hemoglobin 8.5(L) 13.2 - 16.6 g/dL 02/17/2023 [...] Menon Jr. DFeiO. LAB BLOOD AD D-ON [facility] [address] [place] [address], [facility] FB60 [facility] [place] [address] [place] [address] * (ABNORMAL) Albumin, Random, Urine (02/17/2023 9:26 AM CDT) Microalbumin 895.0 mg/L 02/17/2023 1:53 PM CDT OWAT Creatinine 42 mg/dL 02/17/2023 12:50 PM CDT OWAT Albumin/Creatinin e Ratio 2131(H) <17 mg/g 02/17/2023 1:53 PM CDT OW[facility] Urine (Urine, Voided) 02/17/2023 9:26 AM CDT 02/17/2023 11:00 AM CDT Haseeb Menon Jr., D.O. LAB URINE OR DERABLES [facility] [address] [place] [address], [place] OW[place] [facility] [place] [address] [place] [address] * (ABNORMAL) Urinalysis with Microscopic: Urine, Voided [...] 8.0 02/17/2023 10:03 AM CDT FB60 Specific [place] 1.015 1.001 - 1.035 02/17/2023 10:03 AM [...] LAB URINE OR DERABLES Performing Organization Address City/State/[facility] Co de Phone Number [facility] [address] [place] [address], [facility] FB60 [facility] [place] [address] [place] [address] documented in this encounter Visit Diagnoses Diagnosis [...] documented as of this encounter Care Teams Collar Closer Lockstitch Relationship Specialty Start Date End Date Elsewhere, Pcp PCP - General Family Medicine 01/29/20 documented as of this encounter
--- OUTSIDE RECORDS SUMMARY | 2023-06-06 08:38 | XMS_ITS | Encounter Summary ---
Author Name Unknown Organization [facility] Address [address] [place] [address] Care Team Providers Care Shake Splitter Name Role Phone Elsewhere, Pcp Primary Care Provider Unavailabl e Encounter Details Date Type Department Care Team (Latest Contact Info) Description 11/17/2022 10:28 AM CDT - 11/17/2022 11:17 AM CDT Hospital Encounter Department of Laboratory Medicine and Pathology, [facility] in [place], [place] [address] [place] [address] Haseeb Menon Jr., D.O. [address] [place] [address] 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 [...] How often do you attend congregation or synagogue serv ices? Never 03/24/2021 Do you belong [...] Answer Date Recorded PHQ-2 Score 0 10/20/2018 [facility] [place] of Occupat ional Health - Occupational Stress [...] your living situation today? I have a [facility] place to live 10/26/2022 Education Answer Date Recorded What is the highest level of school you have completed or the highest degree you have received? 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 ----REFERENCE VALUE---- Unvaccinated: Negative Vaccinated: Positive HBs Antibody, Quantitative, S <5.0 mIU/mL 11/17/2022 9:12 PM CDT [facility] Comment: ----REFERENCE VALUE---- Unvaccinated: <5.0 Vaccinated: >=12.0 Blood (Blood, Venous) 11/17/2022 11:05 AM CDT 11/17/2022 4:58 PM CDT Haseeb Menon Jr., D.O. LAB MICROBIO LOGY - BLOOD ORDERABLES [facility] [address] [place] [address] [place] [address] * Hepatitis B Surface Antigen (11/17/2022 11:05 AM CDT) [facility] HBs Antigen, S Negative Negative 11/17/2022 8:51 PM CDT [facility] Blood (Blood, Venous) 11/17/2022 11:05 AM CDT 11/17/2022 2:53 PM CDT Haseeb Menon Jr., D.O. LAB MICROBIO LOGY - BLOOD ORDERABLES [facility] [address] [place] [address] [facility] [address] [place] [address] * HBc Total Ab, Serum (11/17/2022 11:05 AM CDT) [facility] HBc Total Ab, S Negative Negative 11/17/2022 9:12 PM CDT [facility] Blood (Blood, Venous) 11/17/2022 11:05 AM CDT 11/17/2022 4:58 PM CDT Haseeb Menon Jr., D.O. LAB MICROBIO LOGY - BLOOD ORDERABLES Performing Organization Address [facility] Co de Phone Number [place] [phone] [place] [address] [place] [address] * HCV Ab Scrn w/Reflex to HCV PCR, Serum (11/17/2022 11:05 AM CDT) [facility] HCV Ab Screen, S Negative Negative 11/17/2022 9:09 PM CDT [facility] Comment:[id number]-[id number] rat io is <1.00. Blood (Blood, Venous) 11/17/2022 11:05 AM CDT 11/17/2022 2:53 PM CDT Haseeb Menon Jr., D.O. LAB MICROBIO LOGY - BLOOD ORDERABLES Performing Organization Address [facility] de Phone Number [place] [phone] [place] [address] [place] [address] * QuantiFERON-Tb Gold Plus, Blood (11/17/2022 11:04 AM CDT) [facility] QuantiFERON-TB Gold Plus Result Negative Negative 11/18/2022 10:55 AM CDT [facility] Comment: No interferon-gamma response to M. tuberculosis [...] Result 0.06 IU/mL 11/18/2022 10:[address] [facility] Blood (Blood, Venous) 11/17/2022 11:04 AM CDT 11/17/2022 1:50 PM CDT Narrative [facility] - 11/18/2022 10:55 AM CDT Specimen Information: Specimen ID: [id number] Specimen Type: Blood Specimen Collection Start Date: 11/17/2022 11:04 AM Specimen Received Date: 11/17/2022 ??1:50 PM Specimen ID: [id number] Specimen Type: Blood Specimen Collection Start Date: 11/17/2022 11:05 AM Specimen Received Date: 11/17/2022 ??1:50 PM Specimen ID: [id number] Specimen Type: Blood Specimen Collection Start Date: 11/17/2022 11:05 AM Specimen Received Date: 11/17/2022 ??1:50 PM Specimen ID: [id number] Specimen Type: Blood Specimen Collection Start Date: 11/17/2022 11:04 AM Specimen Received Date: 11/17/2022 ??1:50 PM Haseeb Menon Jr., D.O. LAB MICROBIO LOGY - BLOOD ORDERABLES [facility] [address] [address] [facility] [address] [place] [address] documented in this encounter Visit Diagnoses Diagnosis 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 (HCC) documented in this encounter Additional Health Concerns Assessment Noted Time PHQ-9 Depression Total Score: 3 01/04/20 18 10:38 AM CDT documented as of this encounter Care Teams Shake Splitter Relationship Specialty Start Date End Date Elsewhere, Pcp PCP - General Family Medicine 01/29/20 documented as of this encounter
--- OUTSIDE RECORDS SUMMARY | 2023-06-06 08:38 | XMS_ITS | Encounter Summary ---
Author Name Unknown Organization [facility] Address [address] [place] [address] Care Team Providers Care Olive Packer Name Role Phone Elsewhere, Pcp Primary Care Provider Unavailabl e Reason for Referral * Outpatient (Routine) - Closed Specialty Diagnoses / Procedures Referred By Robi hong Referred To Contact Nephrology and Hypertension / Dialysis Diagnoses 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 (HCC) 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) Haseeb Menon Jr., D.O. [address] [place] [address] [facility] Referral ID Status Reason Start Date Expiration Date Visits Re quested Visits Authorized [id number] Closed 09/14/2022 09/14/2023 1 1 Reason for Visit * Outpatient (Routine) - Closed Specialty Diagnoses / Procedures Referred By Robi hong Referred To Contact Nephrology and Hypertension / Dialysis Diagnoses 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 (HCC) 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) Haseeb Menon Jr., D.OFei [address] [place] [address] [facility] Referral ID Status Reason Start Date Expiration Date Visits Re quested Visits Authorized [id number] Closed 09/14/2022 09/14/2023 1 1 Encounter Details Date Type Department Care Team (Latest Contact Info) Description 11/01/2022 12:32 PM CDT - 11/01/2022 11:59 PM CDT Hospital Encounter Division of Nephrology and Hypertension, [facility], in [place], [place] [address] [place] [address] Haseeb Menon Jr., D.O. [address] [place] [address] Tee Celeste M.D., Ph.D. [address] [place] [address] 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 [...] week 03/24/2021 How often do you attend pentecostalism or jainism serv ices? Never 03/24/2021 Do you belong to any clubs o r organizations such as pentecostalism groups, unions, fraternal or athletic groups, or [...] Answer Date Recorded PHQ-2 Score 0 10/20/2018 [facility] of Occupat ional Health - Occupational [...] your living situation today? I have a [facility] place to live 10/26/2022 Education Answer Date Recorded What is the highest level of school you have completed or the highest degree you have received? 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 Note patient is from [facility] and would undergo his outpatient training for peritoneal dialysis outside of the [facility]. Tee Celeste MD documented in this [...] documented as of this encounter Care Teams Olive Packer Relationship Specialty Start Date End Date Elsewhere, Pcp PCP - General Family Medicine 01/29/20 documented as of this encounter
--- OUTSIDE RECORDS SUMMARY | 2023-06-06 08:38 | XMS_ITS | Encounter Summary ---
Author Name Unknown Organization [facility] Address [address] [place] [address] Care Team Providers Care Leadership Development Manager Name Role Phone Elsewhere, Pcp Primary Care Provider Unavailabl e Encounter Details Date Type Department Care Team (Latest Contact Info) Description 01/11/2023 8:19 AM CDT - 01/11/2023 11:59 PM CDT Hospital Encounter Department of Laboratory Medicine in [place], [place] [address] [place] [address] Haseeb Menon Jr., D.O. 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 Never 03/24/2021 Do you belong [...] Answer Date Recorded PHQ-2 Score 0 10/20/2018 [facility] [place] of Occupat ional Health - Occupational Stress [...] living situation today? I have a [facility] place to live 10/26/2022 Education Answer Date Recorded What is the highest level of school you have completed or the highest degree you have received? 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) CBC WITH DIFFERENTIAL, B Routine 01/11/2023 8:30 AM CDT 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 (HCC) 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) Anemia Of Chronic Renal Disease Acidosis 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 LAB BLOOD AD D-ON [facility] [address] [place] [address], [facility] [place] [address] [place] [address] [facility] [address] [place] [address] * (ABNORMAL) CBC with Differential, Blood (01/11/2023 8:30 AM CDT) Pathologist [facility] Hemoglobin 8.6(L) 13.2 - 16.6 g/dL 01/11/2023 [...] Menon Jr. D.O. 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
--- OUTSIDE RECORDS SUMMARY | 2023-06-06 08:38 | XMS_ITS | Encounter Summary ---
Author Name Unknown Organization [facility] Address [address] [place] [address] Care Team Providers Care Medical Billing Instructor Name Role Phone Elsewhere, Pcp Primary Care Provider Unavailabl e Reason for Visit * Appointment Request (Routine) - Closed Specialty Diagnoses / Procedures Referred By Robi t Referred To Contact Nephrology and Hypertension Referral ID Status Reason Start Date Expiration Date Visits Re quested Visits Authorized [id number] Closed 10/28/2022 10/28/2023 1 1 Encounter Details Date Type Department Care Team (Latest Contact Info) Description 11/23/2022 2:30 PM CDT External Outreach Division of Nephrology and Hypertension in [place], [place] [address] [place] [address] Haseeb Meonn Jr., D.O. [address] [place] [address] 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 (HCC) (Primary Dx); Diabetes Mellitus Type 2 With Diabetic Nephropathy (HCC); Hyperparathyroidism Secondary (HCC); Anemia Of Chronic Renal Disease; Acidosis Metabolic Hyperchloremic; Atherosclerosis Of [place] Arteries Of Extremities With Intermittent Claudication [...] How often do you attend mandaeism or zoroastrian serv ices? Never 03/24/2021 Do [...] Answer Date Recorded PHQ-2 Score 0 10/20/2018 [facility] of Occupat ional Health - [...] your living situation today? I have a [facility] place to live 10/26/2022 Education Answer Date Recorded What is the highest level of school you have completed or the highest degree you have received? 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 His hemoglobin at that time was 8.6, improved from 7.7 the month prior. His most recent set of iron levels on the 15 of October are acceptable. He would like to have his labs done in [place] we will make sure this is ordered. [...] TAKE ONE CAPSULE BY MOUTH EVERY DAY DETENTION, Disp: , Rfl: nortriptyline (PAMELOR) 50 mg [...] will get a set of chemistries in [place]. Going forward: 1. Continue GOLD regimen as [...] on sodium bicarb supplements #6 Atherosclerosis Of [place] Arteries Of Extremities With Intermittent Claudication [...] 8:30 AM CDT 01/11/2023 11:00 AM CDT [facility] - 01/11/2023 3:02 PM CDT Specimen Information: Specimen ID: [id number] Specimen Type: Blood Specimen Collection Start Date: 01/11/2023 ??8:30 AM Specimen Received Date: 01/11/2023 11:00 AM Specimen ID: [id number] Specimen Type: Blood Specimen Collection Start Date: 01/11/2023 ??8:30 AM Specimen Received Date: 01/11/2023 ??2:35 PM Haseeb Menon Jr., D.O. LAB BLOOD AD D-ON [facility] [address] [place] [address], [facility] [place] [address] [place] [address] [facility] [address] [place] [address] * (ABNORMAL) CBC with Differential, Blood (01/11/2023 8:30 AM CDT) Pathologist [facility] Hemoglobin 8.6(L) 13.2 - 16.6 g/dL 01/11/2023 [...] LAB BLOOD AD D-ON Performing Organization Address City/[facility]/ZIP Co de Phone Number [facility] [address] [place] [address], [facility] [address]60 [facility] [place] [address] [place] [address] * (ABNORMAL) Hemoglobin A1c (11/25/2022 2:09 PM [...] Menon Jr., D.O. LAB BLOOD AD D-ON [facility] [address] [place] [address], [place] OW[place] [facility] [place] [address] [place] [address] * (ABNORMAL) Renal Function Panel (11/25/2022 2:09 PM CDT) [facility] Potassium, P 4.1 3.6 - 5.2 [...] PM CDT 11/25/2022 3:35 PM CDT Narrative [facility] - 11/25/2022 7:56 PM CDT Specimen Information: Specimen ID: [id number] Specimen Type: Blood Specimen Collection Start Date: 11/25/2022 ??2:09 PM Specimen Received Date: 11/25/2022 ??3:35 PM Specimen ID: [id number] Specimen Type: Blood Specimen Collection Start Date: 11/25/2022 ??2:09 PM Specimen Received Date: 11/25/2022 ??7:10 PM Haseeb Menon Jr., D.O. LAB BLOOD AD D-ON Performing Organization Address City/[facility] Co de Phone Number [facility] [address] [place] [address], [facility] OWAT [facility] [address] [place] [address] [facility] [address] [place] [address] * (ABNORMAL) Iron and Total Iron-Binding Capacity [...] LAB BLOOD AD D-ON Performing Organization Address [facility] Co de Phone Number [facility] [address] [place] [address], [facility] [place] [address] [place] [address] * Ferritin (11/25/2022 2:09 PM CDT) Ferritin, S 374 31 - 409 mcg/L 11/25/2022 5:12 PM CDT OW Comment: Biotin has been identified by the talent agent as a potential interfering substance. Higher concentrations of biotin may be found in multivitamins, hair/nail supplements, and workout supplements. If the result does not match clinical observations, repeat testing after patient refrains from the use of supplements for at least 12 hours. Blood (Blood, Venous) 11/25/2022 2:09 PM CDT 11/25/2022 3:35 PM CDT Haseeb Menon Jr., D.O. LAB BLOOD AD D-ON [facility] [address] [place] [address], [facility] OWAT [facility] [place] [address] [place] [address] * (ABNORMAL) CBC with Differential, Blood (11/25/2022 [...] Menon Jr., D.O. LAB BLOOD AD D-ON [facility] [address] [place] [address], [facility] OWAT [facility] [place] [address] [place] [address] documented in this encounter Visit Diagnoses Diagnosis 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 (HCC)- Primary 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) Anemia Of Chronic Renal Disease Acidosis Metabolic Hyperchloremic Atherosclerosis Of [place] Ar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 (HCC) 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 (HCC) 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) Anemia Of Chronic Renal Disease Acidosis Metabolic Hyperchloremic Atherosclerosis Of [place] Ar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 (HCC) 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 (HCC) 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) Anemia Of Chronic Renal Disease Acidosis Metabolic Hyperchloremic Atherosclerosis Of [place] Ar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 (HCC) documented in this encounter Additional Health Concerns Assessment Noted Time PHQ-9 Depression Total Score: 3 01/04/20 18 10:38 AM CDT documented as of this encounter Care Teams Medical Billing Instructor Relationship Specialty Start Date End Date Elsewhere, Pcp PCP - General Family Medicine 01/29/20 documented as of this encounter
--- OUTSIDE RECORDS SUMMARY | 2023-06-06 08:38 | XMS_ITS | Encounter Summary ---
Author Name Unknown Organization [facility] Address [address] [place] [address] Care Team Providers Care Police Academy Program Coordinator Name Role Phone Elsewhere, Pcp Primary Care Provider Unavailabl e Encounter Details Date Type Department Care Team (Late st Contact Info) Description 11/05/2022 Clinical Communication Division of Nephrology and Hypertension in [place], [place] [address] [place] [address] Haseeb Menon Jr., D.O. [address] [place] [address] Social History Tobacco Use Types Packs/Day Years [...] week 03/24/2021 How often do you attend buddhism or adventism serv ices? Never 03/24/2021 Do you belong to any clubs o r organizations such as buddhism groups, unions, fraternal or athletic groups, or [...] Answer Date Recorded PHQ-2 Score 0 10/20/2018 [facility] - Occupational Stress Questionnaire [...] your living situation today? I have a [facility] place to live 10/26/2022 Education Answer Date Recorded What is the highest level of school you have completed or the highest degree you have received? 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
--- OUTSIDE RECORDS SUMMARY | 2023-06-06 08:38 | XMS_ITS | Encounter Summary ---
Author Name Unknown Organization [facility] Address [address] [place] [address] Care Team Providers Care Family Resource Management Specialist Name Role Phone Elsewhere, Pcp Primary Care Provider Unavailabl e Encounter Details Date Type Department Care Team (Late st Contact Info) Description 10/28/2022 Orders Only Division of Nephrology and Hypertension in [place], [place] [address] [place] [address] Haseeb Menon Jr., D.O. [address] [place] [address] 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 [...] often do you attend quaker or mandaen serv ices? Never 03/24/2021 Do [...] Answer Date Recorded PHQ-2 Score 0 10/20/2018 [facility] of Occupat ional [facility] - Occupational Stress Questionnaire Answer Date Recorded [...] your living situation today? I have a [facility] place to live 10/26/2022 Education Answer Date Recorded What is the highest level of school you have completed or the highest degree you have received? 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 Comment: Patient is presumed to be not immune to infection with HBV. ----REFERENCE VALUE---- Unvaccinated: Negative Vaccinated: Positive HBs Antibody, Quantitative, S <5.0 mIU/mL 11/17/2022 9:[address] [facility] Comment: ----REFERENCE VALUE---- Unvaccinated: <5.0 Vaccinated: >=12.0 Blood (Blood, Venous) 11/17/2022 11:05 AM CDT 11/17/2022 4:58 PM CDT Haseeb Menon Jr., D.O. LAB MICROBIO LOGY - BLOOD ORDERABLES [facility] [address] [place] [address] [facility] [address] [place] [address] * Hepatitis B Surface Antigen (11/17/2022 11:05 AM CDT) HBs Antigen, S Negative Negative 11/17/2022 8:[address] [facility] Blood (Blood, Venous) 11/17/2022 11:05 AM CDT 11/17/2022 2:53 PM CDT Haseeb Menon Jr., D.O. LAB MICROBIO LOGY - BLOOD ORDERABLES Performing Organization Address City/[facility]/ZIP Co de Phone Number [facility] [address] [place] [address] [facility] [address] [place] [address] * HBc Total Ab, Serum (11/17/2022 11:05 AM CDT) HBc Total Ab, S Negative Negative 11/17/2022 9:[address] [facility] Blood (Blood, Venous) 11/17/2022 11:05 AM CDT 11/17/2022 4:58 PM CDT Haseeb Menon Jr., D.O. LAB MICROBIO LOGY - BLOOD ORDERABLES [facility] [address] [place] [address] [facility] [address] [place] [address] * HCV Ab Scrn w/Reflex to HCV PCR, Serum (11/17/2022 11:05 AM CDT) HCV Ab Screen, S Negative Negative 11/17/2022 9:[address] [facility] Comment:Sfckya-hz-lbzibr rat io is <1.00. Blood (Blood, Venous) 11/17/2022 11:05 AM CDT 11/17/2022 2:53 PM CDT Haseeb Menon Jr., D.O. LAB MICROBIO LOGY - BLOOD ORDERABLES [facility] [address] [place] [address] [facility] [address] [place] [address] * QuantiFERON-Tb Gold Plus, Blood (11/17/2022 11:04 AM CDT) [facility] QuantiFERON-TB Gold Plus Result Negative Negative 11/18/2022 10:[address] [facility] Comment: No interferon-gamma response to [...] Result 0.01 IU/mL 11/18/2022 10:[address] [facility] TB2 Ag minus Nil Result 0.02 IU/mL 11/18/2022 10:55 AM [facility]T [facility] Mitogen minus Nil Result 9.94 IU/mL 11/18/2022 10:55 AM CDT [facility] Nil Result 0.06 IU/mL 11/18/2022 10:[address] [facility] Blood (Blood, Venous) 11/17/2022 11:04 AM CDT 11/17/2022 1:50 PM CDT Narrative [facility] - 11/18/2022 10:55 AM CDT Specimen Information: Specimen ID: [id number] Specimen Type: Blood Specimen Collection Start Date: 11/17/2022 11:04 AM Specimen Received Date: 11/17/2022 ??1:50 PM Specimen ID: [id number] Specimen Type: Blood Specimen Collection Start Date: 11/17/2022 11:05 AM Specimen Received Date: 11/17/2022 ??1:50 PM Specimen ID: [id number] Specimen Type: Blood Specimen Collection Start Date: 11/17/2022 11:05 AM Specimen Received Date: 11/17/2022 ??1:50 PM Specimen ID: [id number] Specimen Type: Blood Specimen Collection Start Date: 11/17/2022 11:04 AM Specimen Received Date: 11/17/2022 ??1:50 PM Estiven He Jr.OFei LAB MICROBIO LOGY - BLOOD ORDERABLES [facility] [address] [place] [address] [facility] [address] [place] [address] documented in this encounter Visit Diagnoses Diagnosis 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 (HCC)- Primary 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 (HCC) documented in this encounter Additional Health Concerns Assessment Noted Time PHQ-9 Depression Total Score: 3 01/04/20 18 10:38 AM CDT documented as of this encounter Care Teams Family Resource Management Specialist Relationship Specialty Start Date End Date Elsewhere, Pcp PCP - General Family Medicine 01/29/20 documented as of this encounter
--- OUTSIDE RECORDS SUMMARY | 2023-06-06 08:38 | XMS_ITS | Encounter Summary ---
Author Name Unknown Organization [facility] Address [address] [place] [address] Care Team Providers Care Automotive Service Manager Name Role Phone Elsewhere, Pcp [...] 2 Views Haseeb Menon Jr., D.O. [address] [place] [address] [facility] Referral ID Status Reason Start Date Expiration Date Visits Re quested Visits Authorized [id number] Closed 09/14/2022 09/14/2023 1 1 Reason for Visit * Outpatient (Routine) - Closed Specialty Diagnoses / Procedures Referred By Robi hong Referred To Contact Diagnoses 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 (HCC) 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) Procedures DX Chest AP or PA and Lateral 2 Views Haseeb Menon Jr., D.OFei [address] [place] [address] [facility] Referral ID Status Reason Start Date Expiration Date Visits Re quested Visits Authorized [id number] Closed 09/14/2022 09/14/2023 1 1 Encounter Details Date Type Department Care Team (Latest Contact Info) Description 11/17/2022 11:18 AM CDT - 11/17/2022 11:59 PM CDT Hospital Encounter Department of Radiology, [facility], in [place], [place] [address] [place] [address] Haseeb Menon Jr., D.O. [address] [place] [address] 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 [...] How often do you attend mormonism or pentecostalism serv ices? 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
--- OUTSIDE RECORDS SUMMARY | 2023-06-06 08:38 | XMS_ITS | Encounter Summary ---
Author Name Unknown Organization [facility] Address [address] [place] [address] Care Team Providers Care Security Professional Name Role Phone Elsewhere, Pcp Primary Care Provider Unavailabl e Encounter Details Date Type Department Care Team (Latest Contact Info) Description 11/25/2022 1:41 PM CDT - 11/25/2022 11:59 PM CDT Hospital Encounter Department of Laboratory Medicine in [place], [place] [address] [place] [address] Haseeb Menon Jr., D.O. [address] [place] [phone] 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 (HCC); Diabetes Mellitus Type 2 With Diabetic Nephropathy (HCC); Hyperparathyroidism Secondary (HCC); Anemia Of Chronic Renal Disease; Acidosis Metabolic Hyperchloremic; Atherosclerosis Of [place] Arteries Of Extremities With Intermittent Claudication [...] often do you attend oriental orthodox or spiritism serv ices? 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 Gender Identity Male 08/31/2019 2:40 PM [...] Renal Disease Acidosis Metabolic Hyperchloremic Atherosclerosis Of [place] Ar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 (HCC) IRON AND TOT IRON-BINDING CAPACITY, S/P Routine 11/25/2022 2:09 PM CDT 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 (HCC) 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) Anemia Of Chronic Renal Disease Acidosis Metabolic Hyperchloremic Atherosclerosis Of [place] Ar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 (HCC) CBC WITH DIFFERENTIAL, B Routine 11/25/2022 2:09 PM CDT 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 (HCC) 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) Anemia Of Chronic Renal Disease Acidosis Metabolic Hyperchloremic Atherosclerosis Of [place] Ar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 (HCC) HEMOGLOBIN A1C, B Routine 11/25/2022 2:0 9 PM CDT 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 (HCC) 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) Anemia Of Chronic Renal Disease Acidosis Metabolic Hyperchloremic Atherosclerosis Of [place] Ar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 (HCC) FERRITIN, S Routine 11/25/2022 2:09 PM CDT 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 (HCC) 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) Anemia Of Chronic Renal Disease Acidosis Metabolic Hyperchloremic Atherosclerosis Of [place] Arteries Of Extremities With Intermittent Claudication [...] Menon Jr., D.O. LAB BLOOD AD D-ON [facility] [address] [place] [address], [place] OW[place] [facility] [place] [address] [place] [address] * (ABNORMAL) Renal Function Panel (11/25/2022 2:09 [...] PM CDT 11/25/2022 3:35 PM CDT Narrative [facility] - 11/25/2022 7:56 PM CDT Specimen Information: Specimen ID: [id number] Specimen Type: Blood Specimen Collection Start Date: 11/25/2022 ??2:09 PM Specimen Received Date: 11/25/2022 ??3:35 PM Specimen ID: [id number] Specimen Type: Blood Specimen Collection Start Date: 11/25/2022 ??2:09 PM Specimen Received Date: 11/25/2022 ??7:10 PM Haseeb Menon Jr., D.O. LAB BLOOD AD D-ON Performing Organization Address City/[facility] Co de Phone Number [facility] [place] [address], [facility] OWAT [facility] [address] [place] [address] [facility] [address] [place] [address] * (ABNORMAL) Iron and Total Iron-Binding Capacity [...] LAB BLOOD AD D-ON Performing Organization Address City/[facility] Co de Phone Number [facility] [address] [place] [address], [facility] [place] [address] [place] [address] * Ferritin (11/25/2022 2:09 PM CDT) Ferritin, S 374 31 - 409 mcg/L 11/25/2022 5:12 PM CDT OW Comment: Biotin has been identified by the jalousie installer as a potential interfering substance. Higher concentrations of biotin may be found in multivitamins, hair/nail supplements, and workout supplements. If the result does not match clinical observations, repeat testing after patient refrains from the use of supplements for at least 12 hours. Blood (Blood, Venous) 11/25/2022 2:09 PM CDT 11/25/2022 3:35 PM CDT Haseeb Menon Jr., D.O. LAB BLOOD AD D-ON [facility] [address] [place] [address], [facility] OWAT [facility] [place] [address] [place] [address] * (ABNORMAL) CBC with Differential, Blood (11/25/2022 [...] Menon Jr., D.O. LAB BLOOD AD D-ON [facility] [address] [address], [facility] OWAT [facility] [place] [address] [place] [address] documented in this encounter Visit Diagnoses Diagnosis 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 (HCC) 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) Anemia Of Chronic Renal Disease Acidosis Metabolic Hyperchloremic Atherosclerosis Of [place] Ar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 (HCC) documented in this encounter Additional Health Concerns Assessment Noted Time PHQ-9 Depression Total Score: 3 01/04/20 18 10:38 AM CDT documented as of this encounter Care Teams Security Professional Relationship Specialty Start Date End Date Elsewhere, Pcp PCP - General Family Medicine 01/29/20 documented as of this encounter
--- OUTSIDE RECORDS SUMMARY | 2023-06-06 08:38 | XMS_ITS | Encounter Summary ---
Author Name Unknown Organization [facility] Address [address] [place] [id number] Care Team Providers Care Poundmaster Name Role Phone Elsewhere, Pcp Primary Care Provider Unavailabl e Encounter Details Date Type Department Care Team (Late st Contact Info) Description 11/01/2022 Documentation Division of Nephrology and Hypertension in [place], [place] [address] [place] [phone] Deanna Dias M.SFeiN., R.N. [address] [place] [phone] Social History Tobacco Use Types Packs/Day Years [...] week 03/24/2021 How often do you attend bahai or sabianism serv ices? Never 03/24/2021 Do you belong to any clubs o r organizations such as bahai groups, unions, fraternal or athletic groups, or [...] Date Recorded PHQ-2 Score 0 10/20/2018 [facility]at ional [facility] - Occupational [...] your living situation today? I have a [facility] place to live 10/26/2022 Education Answer Date Recorded What is the highest level of school you have completed or the highest degree you have received? 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 Menon note on [...] documented as of this encounter Care Teams Poundmaster Relationship Specialty Start Date End Date Elsewhere, Pcp PCP - General Family Medicine 01/29/20 documented as of this encounter
--- OUTSIDE RECORDS SUMMARY | 2023-06-06 08:39 | XMS_ITS | Encounter Summary ---
Author Name Unknown Organization [facility] Address [address] [place] [address] Care Team Providers Care Neonatal Pediatric Nurse Name Role Phone Elsewhere, Pcp Primary Care Provider Unavailabl e Encounter Details Date Type Department Care Team (Late st Contact Info) Description 10/15/2022 Clinical Communication Division of Nephrology and Hypertension in [place], [place] [address] [place] [address] Farrah Barnes M.D., Ph.D. [address] [place] [address] Social History Tobacco Use Types Packs/Day Years [...] week 03/24/2021 How often do you attend hoahaoism or mandaeism serv ices? Never 03/24/2021 Do you belong to any clubs o r organizations such as hoahaoism groups, unions, fraternal or athletic groups, or [...] or slept in a long-term (including now)? 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 - 10/15/2022 1:39 PM CDT I have contacted Mr. Walton to discuss his most recent labs done today. His creatinine is slightlyhigher than his last values done at [facility], likely a fluctuation within his [...] documented as of this encounter Care Teams Neonatal Pediatric Nurse Relationship Specialty Start Date End Date Elsewhere, Pcp PCP - General Family Medicine 01/29/20 documented as of this encounter
--- OUTSIDE RECORDS SUMMARY | 2023-06-06 08:39 | XMS_ITS | Encounter Summary ---
Author Name Unknown Organization [facility] Address [address] [place] [address] Care Team Providers Care Manager Life Name Role Phone Elsewhere, Pcp Primary Care Provider Unavailpaola e Encounter Details Date Type Department Care Team (Late st Contact Info) Description 08/19/2016 Historical Ophthalmology [facility] Chalo Holland Jr., M.D. [address] [place] [address] Social History Tobacco Use Types Packs/Day Years Used Date Smoking Tobacco: Every Day Sex and Gender Information Value Date Recorded Sex Assigned at Male 03/24/2021 8:13 PM CONVERTER SUPERVISOR Gender Identity Male 08/31/2019 2:40 PM [...] IOL OU CDM Reports - EYEGEN Id: [id number] Status: Fnl documented in this encounter Plan of Treatment Not on file documented as of this encounter Visit Diagnoses Not on filedocumented in this encounter Additional Health Concerns Infection Onset Date Last Indicated Resolved Time COVID19 Pending 05/08/2020 05/08/2020 05/08/2020 2 :44 PM CONVERTER SUPERVISOR Assessment Noted Time PHQ-9 Depression Total Score: 7 08/17/19 17 9:01 AM CDT documented as of this encounter Care Teams Manager Life Relationship Specialty Start Date End Date Elsewhere, Pcp PCP - General Family Medicine 01/29/20 documented as of this encounter
--- OUTSIDE RECORDS SUMMARY | 2023-06-06 08:39 | XMS_ITS | Encounter Summary ---
Author Name Unknown Organization [facility] Address [address] [place] [address] Care Team Providers Care Automatic Coil Machine Operator Name Role Phone Elsewhere, Pcp Primary Care Provider Unavailabl e Encounter Details Date Type Department Care Team (Latest Contact Info) Description 09/06/2022 10:39 AM CDT - 09/06/2022 11:59 PM CDT Hospital Encounter Department of Laboratory Medicine in [place], [place] [address] [place] [address] Haseeb Menon Jr., D.O. [address] [place] [phone] 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 (HCC); Diabetes Mellitus Type 2 With Diabetic Nephropathy (HCC); Anemia Of Chronic Renal Disease; Hyperparathyroidism Secondary (HCC); Atherosclerosis Of [place] Arteries Of Left Leg With Ulceration Of [...] How often do you attend nondenominational or jainism serv ices? Never 03/24/2021 Do [...] 0 10/20/2018 [facility] [place] of Occupat ional Health - Occupational Stress [...] Sex Assigned at Male 03/24/2021 8:13 PM FRONT OFFICE DIRECTOR Gender Identity Male 08/31/2019 2:40 PM [...] TAKE ONE CAPSULE BY MOUTH EVERY DAY FDC 0 01/14/2022 nortriptyline (PAMELOR) 50 mg capsule [...] Renal Disease Hyperparathyroidism Secondary (HCC) Atherosclerosis Of [place] Arteries Of Left Leg With Ulceration Of Unspecified Site (HCC) Depression Major Recurrent Moderate (HCC) URINALYSIS WITH MICROSCOPIC Routine 09/06/2022 10:59 AM CDT 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 (HCC) Diabetes Mellitus Type 2 With Diabetic Nephropathy (HCC) Anemia Of Chronic Renal Disease Hyperparathyroidism Secondary (HCC) Atherosclerosis Of [place] Arteries Of Left Leg With Ulceration Of [...] 8.0 09/06/2022 11:18 AM CDT FB60 Specific [place] 1.015 1.001 - 1.035 09/06/2022 11:18 AM [...] Menon Jr. D.O. LAB URINE OR DERABLES [facility] [address] [facility] [place] [address], [facility] FB60 [facility] [place] [address] [place] [address] * (ABNORMAL) Albumin, Random, Urine (09/06/2022 10:59 AM CDT) Microalbumin 1149.0 mg/L 09/06/2022 4:37 PM CDT OWAT Creatinine 22 mg/dL 09/06/2022 2:31 PM CDT OWAT Albumin/Creatinin e Ratio 5223(H) <17 mg/g 09/06/2022 4:37 PM CDT OWAT Urine (Urine, Voided) 09/06/2022 10:59 AM CDT 09/06/2022 1:39 PM CDT Haseeb Menon Jr., D.O. LAB URINE OR DERABLES Performing Organization Address City/State/[facility] Co de Phone Number [facility] [address] [place] [address], [facility] OWAT [facility] [place] [address] [place] [address] documented in this encounter Visit Diagnoses Diagnosis 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 (HCC) Diabetes Mellitus Type 2 With Diabetic Nephropathy (HCC) Anemia Of Chronic Renal Disease Hyperparathyroidism Secondary (HCC) Atherosclerosis Of [place] Arteries Of Left Leg With Ulceration Of Unspecified Site (HCC) Depression Major Recurrent Moderate (HCC) documented in this encounter Additional Health Concerns Assessment Noted Time PHQ-9 Depression Total Score: 3 01/04/20 18 10:38 AM CDT documented as of this encounter Care Teams Automatic Coil Machine Operator Relationship Specialty Start Date End Date Elsewhere, Pcp PCP - General Family Medicine 01/29/20 documented as of this encounter
--- OUTSIDE RECORDS SUMMARY | 2023-06-06 08:39 | XMS_ITS | Encounter Summary ---
Author Name Unknown Organization [facility] Address [address] [place] [address] Care Team Providers Care Clinical Account Liaison Name Role Phone Elsewhere, Pcp Primary Care Provider Unavailabl e Encounter Details Date Type Department Care Team (Late st Contact Info) Description 10/27/2022 Episode Changes Division of Nephrology and Hypertension in [place], [place] [address] [place] [phone] Malathi Penaloza, RFeiN. [address] [place] [address] Social History Tobacco Use Types Packs/Day Years [...] week 03/24/2021 How often do you attend uatsdin or hindu serv ices? Never 03/24/2021 Do you belong to any clubs o r organizations such as uatsdin groups, unions, fraternal or athletic groups, or [...] Answer Date Recorded PHQ-2 Score 0 10/20/2018 [facility] - Occupational Stress Questionnaire Answer Date [...] situation today? I have a [facility] place to live 10/26/2022 Education Answer Date Recorded What is the highest level of school you have completed or the highest degree you have received? 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/2021 8:13 PM SENIOR ENGINEER Gender Identity Male 08/31/2019 2:40 PM CDT Sexual Orientation Straight 08/31/2019 2: 40 PM CDT documented as of this encounter Plan of Treatment Not on file documented as of this encounter Visit Diagnoses Not on filedocumented in this encounter Additional Health Concerns Assessment Noted Time PHQ-9 Depression Total Score: 3 01/04/20 18 10:38 AM CDT documented as of this encounter Care Teams Clinical Account Liaison Relationship Specialty Start Date End Date Elsewhere, Pcp PCP - General Family Medicine 01/29/20 documented as of this encounter
--- OUTSIDE RECORDS SUMMARY | 2023-06-06 08:39 | XMS_ITS | Encounter Summary ---
Author Name Unknown Organization [facility] Address [address] [place] [address] Care Team Providers Care Enologist Name Role Phone Elsewhere, Pcp Primary Care Provider Unavailabl e Reason for Visit * Reason Onset Date Comments Amlodipine RX 07/01/2022 Encounter Details Date Type Department Care Team (Latest Contact Info) Description 07/01/2022 Clinical Communication Division of Nephrology and Hypertension in [place], [place] [address] [place] [address] Haseeb Menon Jr., D.O. [address] [place] [address] Amlodipine RX Social History Tobacco Use Types [...] How often do you attend pentecostal or episcopal serv ices? Never 03/24/2021 Do [...] Date Recorded PHQ-2 Score 0 10/20/2018 [facility] of Occupat ional Health - Occupational Stress [...] Sex Assigned at Male 03/24/2021 8:13 PM PRESS TENDER LONG GOODS Gender Identity Male 08/31/2019 2:40 PM CDT Sexual Orientation Straight 08/31/2019 2: 40 PM CDT documented as of this encounter Miscellaneous Notes * Telephone Encounter - Ana Maria Gutiérrez - 07/01/2022 1:37 PM CST Caller is: other: Authorization YES Preferred Communication Method: [phone] Reason for call: Pharmacy calls stating Dr. [...] if 10 mg is correct. Thank you. S TENDER LONG GOODS documented in this encounter Plan of Treatment Not on file documented as of this encounter Visit Diagnoses Not on filedocumented in this encounter Additional Health Concerns Assessment Noted Time PHQ-9 Depression Total Score: 3 01/04/20 18 10:38 AM CDT documented as of this encounter Care Teams Enologist Relationship Specialty Start Date End Date Elsewhere, Pcp PCP - General Family Medicine 01/29/20 documented as of this encounter
--- OUTSIDE RECORDS SUMMARY | 2023-06-06 08:39 | XMS_ITS | Encounter Summary ---
Author Name Unknown Organization [facility] Address [address] [place] [address] Care Team Providers Care Airfield Services Officer Name Role Phone Elsewhere, Pcp Primary Care Provider Unavailabl e Reason for Visit * Reason Onset Date Comments Med Question 07/08/2022 Encounter Details Date Type Department Care Team (Latest Contact Info) Description 07/08/2022 Clinical Communication Division of Nephrology and Hypertension in [place], [place] [address] [place] [address] Haseeb Menon Jr., D.O. [address] [place] [address] Med Question Social History Tobacco Use Types [...] How often do you attend buddhism or episcopalian serv ices? Never 03/24/2021 Do you belong [...] Answer Date Recorded PHQ-2 Score 0 10/20/[address] [facility] [place] of Occupat ional Health - Occupational Stress [...] Sex Assigned at Male 03/24/2021 8:13 PM STUDENT SERVICES COORDINATOR Gender Identity Male 08/31/2019 2:40 PM [...] following references were used: nursing clinical judgement ENT SERVICES COORDINATOR * Telephone Encounter - Trino Hair - 07/08/2022 1:35 PM CST Caller is: patient Preferred Communication Method: [phone] (mobile) Reason for call: Patient called and said he is being seen in [facility] for gout in his hand. His PCP would like Dr. Menon's opinion on what medication they should give the patient that is not too harmful for his kidneys. Patient tells me he has been on prednisone for the past week but as soon as he stopped taking it his hand started swelling again. His PCP suggested Uloric or Allopurinol. ENT SERVICES COORDINATOR documented in this encounter Plan of Treatment Not on file documented as of this encounter Visit Diagnoses Not on filedocumented in this encounter Additional Health Concerns Assessment Noted Time PHQ-9 Depression Total Score: 3 01/04/20 18 10:38 AM CDT documented as of this encounter Care Teams Airfield Services Officer Relationship Specialty Start Date End Date Elsewhere, Pcp PCP - General Family Medicine 01/29/20 documented as of this encounter
--- OUTSIDE RECORDS SUMMARY | 2023-06-06 08:39 | XMS_ITS | Encounter Summary ---
Author Name Unknown Organization [facility] Address [address] [place] [address] Care Team Providers Care Mems Process Engineer Name Role Phone Elsewhere, Pcp Primary Care Provider Unavailabl e Reason for Visit * Reason Onset Date Comments Txp Initial RN Phone Interview 09/21/2022 Encounter Details Date Type Department Care Team (Latest Contact Info) Description 09/21/2022 Clinical Communication [facility] [place], [place] [address] [place] [address] Regina Basurto R.N., C.C.T.C. [address] [place] [phone] Txp Initial RN Phone Interview Social History [...] How often do you attend baptist or adventist serv ices? Never 03/24/2021 Do [...] Answer Date Recorded PHQ-2 Score 0 10/20/2018 [facility] of Occupat ional Health - [...] Sex Assigned at Male 03/24/2021 8:13 PM VETERANS SERVICE REPRESENTATIVE Gender Identity Male 08/31/2019 2:40 PM [...] PAD and iliac stents. Stenting done at [facility] and images in eads. Hx of CVA [...] No Informed of COVID vaccine requirement: Yes Batch Attendant Utilized: No Phone Screen Type: Kidney Completed [...] (Benefit check not needed for Medicare or [facility] Insurance) Do you know your GFR? Yes, [...] NA Pap: NA Cardiovascular History: HTN: Yes [place]: No CVA/TIA: Yes mini stroke 15-20 years [...] Information for Kidney, Kidney/Pancreas, andPancreas Transplant Candidates [id number] was reviewed with the patient via telephone call. Confirmed Onesimo Walton's interest in pursuing a kidney transplant evaluation at [facility]. The patient verbalized understanding of [...] documented as of this encounter Care Teams Mems Process Engineer Relationship Specialty Start Date End Date Elsewhere, Pcp PCP - General Family Medicine 01/29/20 documented as of this encounter
--- OUTSIDE RECORDS SUMMARY | 2023-06-06 08:39 | XMS_ITS | Encounter Summary ---
Author Name Unknown Organization [facility] Address [address] [place] [address] Care Team Providers Care Sample Clerk Name Role Phone Elsewhere, Pcp Primary Care Provider Unavailabl e Reason for Visit * Appointment Request (Routine) - Closed Specialty Diagnoses / Procedures Referred By Robi t Referred To Contact Transplant Diagnoses Pre Procedures Pre [facility] Referral ID Status Reason Start Date Expiration Date Visits Re quested Visits Authorized [id number] Closed 09/16/2022 09/16/2023 1 1 Encounter Details Date Type Department Care Team (Latest Contact Info) Description 09/21/2022 9:00 AM CDT Clinical Communication [facility] [place], [place] [address] [place] [address] Regina Basurto R.N., C.C.T.C. [address] [place] [address] Social History Tobacco Use Types Packs/Day Years [...] week 03/24/2021 How often do you attend shinto or yazidism serv ices? Never 03/24/2021 Do you belong to any clubs o r organizations such as shinto groups, unions, fraternal or athletic groups, or [...] Answer Date Recorded PHQ-2 Score 0 10/20/2018 [facility] of Occupat ional Health - [...] slept in a senior care (including now)? No 03/24/2021 Nutrition Answer Date [...] Sex Assigned at Male 03/24/2021 8:13 PM ACCESS SPEC Gender Identity Male 08/31/2019 2:40 PM CDT Sexual Orientation Straight 08/31/2019 2: 40 PM CDT documented as of this encounter Plan of Treatment Not on file documented as of this encounter Visit Diagnoses Not on filedocumented in this encounter Additional Health Concerns Assessment Noted Time PHQ-9 Depression Total Score: 3 01/04/20 18 10:38 AM CDT documented as of this encounter Care Teams Sample Clerk Relationship Specialty Start Date End Date Elsewhere, Pcp PCP - General Family Medicine 01/29/20 documented as of this encounter
--- OUTSIDE RECORDS SUMMARY | 2023-06-06 08:39 | XMS_ITS | Encounter Summary ---
Author Name Unknown Organization [facility] Address [address] [place] [address] Care Team Providers Care Outside Machinist Helper Name Role Phone Elsewhere, Pcp Primary Care Provider Unavailabl e Encounter Details Date Type Department Care Team (Late st Contact Info) Description 07/05/2022 Orders Only Division of Nephrology and Hypertension in [place], [place] [address] [place] [address] Haseeb Menon Jr., D.O. [address] [place] [address] Social History Tobacco Use Types Packs/Day Years [...] week 03/24/2021 How often do you attend denominational or sabianist serv ices? Never 03/24/2021 Do you belong to any clubs o r organizations such as denominational groups, unions, fraternal or athletic groups, or [...] Sex Assigned at Male 03/24/2021 8:13 PM QUARANTINE INSPECTOR Gender Identity Male 08/31/2019 2:40 PM CDT Sexual Orientation Straight 08/31/2019 2: 40 PM CDT documented as of this encounter Plan of Treatment Not on file documented as of this encounter Visit Diagnoses Not on filedocumented in this encounter Additional Health Concerns Assessment Noted Time PHQ-9 Depression Total Score: 3 01/04/20 18 10:38 AM CDT documented as of this encounter Care Teams Outside Machinist Helper Relationship Specialty Start Date End Date Elsewhere, Pcp PCP - General Family Medicine 01/29/20 documented as of this encounter
--- OUTSIDE RECORDS SUMMARY | 2023-06-06 08:39 | XMS_ITS | Encounter Summary ---
Author Name Unknown Organization [facility] Address [address] [place] [address] Care Team Providers Care Finger Buff Sewer Name Role Phone Elsewhere, Pcp Primary Care Provider Unavailabl e Reason for Visit * Appointment Request (Routine) - Closed Specialty Diagnoses / Procedures Referred By Robi t Referred To Contact Nephrology and Hypertension Referral ID Status Reason Start Date Expiration Date Visits Re quested Visits Authorized [id number] Closed 08/27/2022 08/27/2023 1 Encounter Details Date Type Department Care Team (Latest Contact Info) Description 09/14/2022 9:00 AM CDT External Outreach Division of Nephrology and Hypertension in [place], [place] [address] [place] [address] Haseeb Menon Jr., D.O. [address] [place] [address] 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 [...] How often do you attend jewish or synagogue serv ices? Never 03/24/2021 Do [...] Answer Date Recorded PHQ-2 Score 0 10/20/2018 [facility] of Occupat ional Health - [...] Sex Assigned at Male 03/24/2021 8:13 PM PHOTO MASK PATTERN GENERATOR Gender Identity Male 08/31/2019 2:40 PM CDT [...] Provider: ELSEWHERE, PCP SUBJECTIVE REASON FOR VISIT [place] [facility] Follow-up regards CKD [...] He has [facility] seeing providers [facility] well as here in [place], and has been struggling with severe neck, [...] TAKE ONE CAPSULE BY MOUTH EVERY DAY SHELTER, Disp: , Rfl: nortriptyline (PAMELOR) 50 mg [...] documented as of this encounter Care Teams Finger Buff Sewer Relationship Specialty Start Date End Date Elsewhere, Pcp PCP - General Family Medicine 01/29/20 documented as of this encounter
--- OUTSIDE RECORDS SUMMARY | 2023-06-06 08:39 | XMS_ITS | Encounter Summary ---
Author Name Unknown Organization [facility] Address [address] [place] [address] Care Team Providers Care Rest Room Maid Name Role Phone Elsewhere, Pcp Primary Care Provider Unavailabl e Reason for Visit * Appointment Request (Routine) - Closed Specialty Diagnoses / Procedures Referred By Robi t Referred To Contact Nephrology and Hypertension Referral ID Status Reason Start Date Expiration Date Visits Re quested Visits Authorized [id number] Closed 09/23/2022 09/23/2023 1 1 Encounter Details Date Type Department Care Team (Latest Contact Info) Description 10/26/2022 9:00 AM CDT External Outreach Division of Nephrology and Hypertension in [place], [place] [address] [place] [address] Haseeb Menon Jr., D.O. [address] [place] [address] 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 (HCC) (Primary Dx); Diabetes Mellitus Type 2 With Diabetic Nephropathy (HCC); Anemia Of Chronic Renal Disease; Peripheral Arterial Disease (HCC); Hyperparathyroidism Secondary (HCC); Atherosclerosis Of [place] Arteries Of Left Leg With Ulceration Of [...] week 03/24/2021 How often do you attend sabianism or advent serv ices? Never 03/24/2021 Do you belong to any clubs o r organizations such as sabianism groups, unions, fraternal or athletic groups, or [...] Answer Date Recorded PHQ-2 Score 0 10/20/2018 [facility] - Occupational Stress Questionnaire Answer Date [...] your living situation today? I have a [facility] place to live 10/26/2022 Education Answer Date Recorded What is the highest level of school you have completed or the highest degree you have received? 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/2021 8:13 PM SUPERSONIC ENGINEER Gender Identity Male 08/31/2019 2:40 PM [...] Provider: ELSEWHERE, PCP SUBJECTIVE REASON FOR VISIT [facility] Follow-up regarding CKD [...] candidate. Went to the Education opportunity, through [employer], was a bit disappointed, feeling he did [...] TAKE ONE CAPSULE BY MOUTH EVERY DAY BUTTON MACHINE OPERATOR, Disp: , Rfl: nortriptyline (PAMELOR) 50 mg [...] 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 ([facility]) I suspect he is actually end-stage renal [...] being accepted to the dialysis program at [facility]. #2 Diabetes Mellitus Type 2 With Diabetic Nephropathy ([facility]) His glycemic control is variable currently, his [...] consider blood transfusion. #4 Peripheral Arterial Disease ([facility]) No open active wounds currently, no rest claudication. #5 Hyperparathyroidism Secondary ([facility]) Reminded him to take his 500 mg Tums 2 with each meal. This will help with his pruritus, as well as binding his phosphorus and improving his serum calciumlevel. #6 Atherosclerosis Of [place] Arteries Of Left Leg With Ulceration Of Unspecified Site (HCC) This has resolved #7 Depression Major Recurrent Moderate (HCC) He is well compensated from this perspective Please note he was accompanied to his visit today by his and daughter who are excellent director of enterprise strategy for him. #8.: PA ME He is [...] Disease (HCC) Hyperparathyroidism Secondary (HCC) Atherosclerosis Of [place] Arteries Of Left Leg With Ulceration Of Unspecified Site (HCC) Depression Major Recurrent Moderate (HCC) documented in this encounter Additional Health Concerns Assessment Noted Time PHQ-9 Depression Total Score: 3 01/04/20 18 10:38 AM CDT documented as of this encounter Care Teams Rest Room Maid Relationship Specialty Start Date End Date Elsewhere, Pcp PCP - General Family Medicine 01/29/20 documented as of this encounter
--- OUTSIDE RECORDS SUMMARY | 2023-06-06 08:39 | XMS_ITS | Encounter Summary ---
Author Name Unknown Organization [facility] Address [address] [place] [address] Care Team Providers Care Field Service Technician Poultry Name Role Phone Elsewhere, Pcp Primary Care Provider Unavailabl e Reason for Visit * Reason Comments Med Refill Encounter Details Date Type Department Care Team (Late st Contact Info) Description 06/23/2022 Refill Division of Nephrology and Hypertension in [place], [place] [address] [place] [address] Hui Delgado APRN, C.N.P., R.N. Med Refill [...] week 03/24/2021 How often do you attend mormon or restoration serv ices? Never 03/24/2021 Do you belong to any clubs o r organizations such as mormon groups, unions, fraternal or athletic groups, or [...] Answer Date Recorded PHQ-2 Score 0 10/20/2018 [facility]at [facility] - Occupational Stress [...] Sex Assigned at Male 03/24/2021 8:13 PM CARDIOVASCULAR SURGEON Gender Identity Male 08/31/2019 2:40 PM CDT Sexual Orientation Straight 08/31/2019 2: 40 PM CDT documented as of this encounter Plan of Treatment Not on file documented as of this encounter Visit Diagnoses Not on filedocumented in this encounter Additional Health Concerns Assessment Noted Time PHQ-9 Depression Total Score: 3 01/04/20 18 10:38 AM CDT documented as of this encounter Care Teams Field Service Technician Poultry Relationship Specialty Start Date End Date Elsewhere, Pcp PCP - General Family Medicine 01/29/20 documented as of this encounter
--- OUTSIDE RECORDS SUMMARY | 2023-06-06 08:39 | XMS_ITS | Encounter Summary ---
Author Name Unknown Organization [facility] Address [address] [place] [address] Care Team Providers Care Cartographic Engineer Name Role Phone Elsewhere, Pcp Primary [...] 2 Views Haseeb Menon Jr., D.O. 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 [address] [place] [address] [facility] Referral ID Status Reason Start Date Expiration Date Visits Re quested Visits Authorized [id number] Closed 09/14/2022 09/14/2023 1 1 Encounter Details Date Type Department Care Team (Late st Contact Info) Description 09/14/2022 Orders Only Division of Nephrology and Hypertension in [place], [place] [address] [place] [address] Haseeb Menon Jr., D.O. [address] [place] [address] 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 [...] week 03/24/2021 How often do you attend yazidism or quaker serv ices? Never 03/24/2021 Do you belong to any clubs o r organizations such as yazidism groups, unions, fraternal or athletic groups, or [...] Sex Assigned at Male 03/24/2021 8:13 PM HEAV[employer]IC [employer] Gender Identity Male 08/31/2019 2:40 PM CDT [...] CDT) Ventricular Rate ECG/Min 83 BPM MUSE MO Interval 162 ms MUSE QRSD Interval 134 ms MUSE QT Interval 426 ms MUSE QTC Interval 500 ms MUSE P Bradford 67 degrees MUSE R Bradford -15 degrees MUSE T Wave Bradford 14 degrees MUSE 11/17/2022 12:1 1 PM [...] documented as of this encounter Care Teams Cartographic Engineer Relationship Specialty Start Date End Date Elsewhere, Pcp PCP - General Family Medicine 01/29/20 documented as of this encounter
--- OUTSIDE RECORDS SUMMARY | 2023-06-06 08:39 | XMS_ITS | Encounter Summary ---
Author Name Unknown Organization [facility] Address [address] [place] [address] Care Team Providers Care Bilingual Interpreter Name Role Phone Elsewhere, Pcp Primary Care Provider Unavailabl e Encounter Details Date Type Department Care Team (Latest Contact Info) Description 09/06/2022 10:39 AM CDT - 09/06/2022 11:59 PM CDT Hospital Encounter Department of Laboratory Medicine in [place], [place] [address] [place] [address] Haseeb Menon Jr., D.O. [address] [place] [address] 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 (HCC); Diabetes Mellitus Type 2 With Diabetic Nephropathy (HCC); Anemia Of Chronic Renal Disease; Hyperparathyroidism Secondary (HCC); Atherosclerosis Of [place] Arteries Of Left Leg With Ulceration Of [...] week 03/24/2021 How often do you attend christian or latter-day serv ices? Never 03/24/2021 Do you belong to any clubs o r organizations such as christian groups, unions, fraternal or athletic groups, or [...] Answer Date Recorded PHQ-2 Score 0 10/20/2018 [facility] Occupat ional Health - [...] or slept in a halfway (including now)? No 03/24/2021 Nutrition Answer Date [...] Sex Assigned at Male 03/24/2021 8:13 PM ELECTRONIC ENGINEERING TECHNICIAN Gender Identity Male 08/31/2019 2:40 PM [...] Renal Disease Hyperparathyroidism Secondary (HCC) Atherosclerosis Of [place] Arteries Of Left Leg With Ulceration Of Unspecified Site (HCC) Depression Major Recurrent Moderate (HCC) IRON AND TOT IRON-BINDING CAPACITY, S/P Routine 09/06/2022 11:04 AM CDT 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 (HCC) Diabetes Mellitus Type 2 With Diabetic Nephropathy (HCC) Anemia Of Chronic Renal Disease Hyperparathyroidism Secondary (HCC) Atherosclerosis Of [place] Arteries Of Left Leg With Ulceration Of Unspecified Site (HCC) Depression Major Recurrent Moderate (HCC) CBC WITH DIFFERENTIAL, B Routine 09/06/2022 11:04 AM CDT 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 (HCC) Diabetes Mellitus Type 2 With Diabetic Nephropathy (HCC) Anemia Of Chronic Renal Disease Hyperparathyroidism Secondary (HCC) Atherosclerosis Of [place] Arteries Of Left Leg With Ulceration Of Unspecified Site (HCC) Depression Major Recurrent Moderate (HCC) URIC ACID, S/P Routine 09/06/2022 11:04 AM CDT 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 (HCC) Diabetes Mellitus Type 2 With Diabetic Nephropathy (HCC) Anemia Of Chronic Renal Disease Hyperparathyroidism Secondary (HCC) Atherosclerosis Of [place] Arteries Of Left Leg With Ulceration Of Unspecified Site (HCC) Depression Major Recurrent Moderate (HCC) PARATHYROID HORMONE (PTH), S Routine 09/06/2022 11:04 AM CDT 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 (HCC) Diabetes Mellitus Type 2 With Diabetic Nephropathy (HCC) Anemia Of Chronic Renal Disease Hyperparathyroidism Secondary (HCC) Atherosclerosis Of [place] Arteries Of Left Leg With Ulceration Of Unspecified Site (HCC) Depression Major Recurrent Moderate (HCC) HEMOGLOBIN A1C, B Routine 09/06/2022 11: 04 AM CDT 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 (HCC) Diabetes Mellitus Type 2 With Diabetic Nephropathy (HCC) Anemia Of Chronic Renal Disease Hyperparathyroidism Secondary (HCC) Atherosclerosis Of [place] Arteries Of Left Leg With Ulceration Of Unspecified Site (HCC) Depression Major Recurrent Moderate (HCC) FERRITIN, S Routine 09/06/2022 11:04 AM CDT 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 (HCC) Diabetes Mellitus Type 2 With Diabetic Nephropathy (HCC) Anemia Of Chronic Renal Disease Hyperparathyroidism Secondary (HCC) Atherosclerosis Of [place] Arteries Of Left Leg With Ulceration Of [...] Menon Jr., D.O. LAB BLOOD AD D-ON [facility] [address] [place], [place] [id number] [place] [address] Lab - [address] [address] * Uric Acid (09/06/2022 11:04 AM CDT) Uric Acid, P 5.8 3.7 - 8.0 mg/dL 09/06/2022 4:47 PM CDT [facility] Blood (Blood, Venous) 09/06/2022 11:04 AM CDT 09/06/2022 4:24 PM CDT Haseeb Menon Jr., D.O. LAB BLOOD AD D-ON Performing Organization Address [place] Co de Phone Number [facility] [address] [place] [address], [facility] - [address] [address] * (ABNORMAL) Parathyroid Hormone (PTH) (09/06/2022 11:04 AM CDT) Parathyroid Hormone (PTH), S 240(H) 15 - 65 pg/mL 09/06/2022 5:01 PM CDT AUST Comment: Biotin has been identified by the relations director as a potential interfering substance. Higher concentrations of biotin may be found in multivitamins, hair/nail supplements, and workout supplements. If the result does not match clinical observations, repeat testing after patient refrains from the use of supplements for at least 12 hours. Blood (Blood, Venous) 09/06/2022 11:04 AM CDT 09/06/2022 4:24 PM CDT Haseeb Menon Jr., D.O. LAB BLOOD AD D-ON [facility] [address] [facility] [place] [address], [facility] AUST [facility] - [facility] [address] [place] [address] * (ABNORMAL) Ferritin (09/06/2022 11:04 AM CDT) Ferritin, S 640(H) 31 - 409 mcg/L 09/06/2022 3:48 PM CDT OWAT Comment: Biotin has been identified by the relations director as a potential interfering substance. Higher concentrations [...] LAB BLOOD AD D-ON Performing Organization Address [place]/ZIP Co de Phone Number [facility] [address] [place] [address], [facility] OWAT [facility] in [place] [address] [place] [address] * (ABNORMAL) Hemoglobin A1c (09/06/2022 11:04 AM [...] AD D-ON Performing Organization Address City/[facility]/ZIP Co de Phone Number [facility] [address] [place] [address], [place] OWAT [facility] in [address] [place] [address] * (ABNORMAL) Renal Function Panel (09/06/2022 11:04 [...] AM CDT 09/06/2022 4:24 PM CDT Narrative [facility] - 09/06/2022 4:47 PM CDT Specimen Information: Specimen ID: [id number] Specimen Type: Blood Specimen Collection Start Date: 09/06/2022 11:04 AM Specimen Received Date: 09/06/2022 ??4:24 PM Specimen ID: [id number] Specimen Type: Blood Specimen Collection Start Date: 09/06/2022 11:04 AM Specimen Received Date: 09/06/2022 ??1:38 PM Haseeb Menon Jr., D.O. LAB BLOOD AD D-ON [facility] [address] [place] [address], [facility] OWAT [facility] in [place] [address] [place] [address] [facility] [address] [place] [address] * (ABNORMAL) CBC with Differential, Blood (09/06/2022 [...] Estiven He Jr.OFei LAB BLOOD AD D-ON [facility] [address] [place] [address], [facility] FB60 [facility] [place] [address] documented in this encounter Visit Diagnoses Diagnosis 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 (HCC) Diabetes Mellitus Type 2 With Diabetic Nephropathy (HCC) Anemia Of Chronic Renal Disease Hyperparathyroidism Secondary (HCC) Atherosclerosis Of [place] Arteries Of Left Leg With Ulceration Of Unspecified Site (HCC) Depression Major Recurrent Moderate (HCC) documented in this encounter Additional Health Concerns Assessment Noted Time PHQ-9 Depression Total Score: 3 01/04/20 18 10:38 AM CDT documented as of this encounter Care Teams Bilingual Interpreter Relationship Specialty Start Date End Date Elsewhere, Pcp PCP - General Family Medicine 01/29/20 documented as of this encounter
--- OUTSIDE RECORDS SUMMARY | 2023-06-06 08:40 | XMS_ITS ---
Author Name Unknown Organization [facility] Address [address] [place] [address] Care Team Providers Care Byproducts Maker Name Role Phone Elsewhere, Pcp Primary Care Provider Unavailabl e Transplant Episode Kidney Candidate [place], [place]) - [facility] Referred on 09/16/2022 Marked as Ineligible on 09/21/2022 Reason: Surgical Contraindication Kidney CoordinatorDetiffany Becerra R.N., C.C.T.C. Email: [email or web address] Scores Score Value Updated Exceptions/Reas ons CPRA Not available EPTS (Calc) 71 06/06/2023 Care Team Name Role Phone Fax Email Regina Becerra R.N., C.C.T.C. Kidney Coordinator [phone] [email or web address] Haseeb Menon Jr., D.O. Referring Provider [phone] [email or web address] Pre-Transplant Referred: 09/16/2022
== END 2023-06-06 08:33 | disposition home or self-care (01) ==
LOC: WOUND 08:33
PROVIDERS: PCP Family Medicine; Visit Provider Nurse Practitioner Family
DX: E11.621 Type 2 diabetes mellitus with foot ulcer (principal); L97.515 Non-pressure chronic ulcer of other part of right foot with muscle involvement without evidence of necrosis; E11.22 Type 2 diabetes mellitus with diabetic chronic kidney disease; N18.5 Chronic kidney disease, stage 5; Z99.2 Dependence on renal dialysis; Z79.4 Long term (current) use of insulin; Z96.41 Presence of insulin pump (external) (internal)
CPT/HCPCS: 11043; 87070; 87186; G0463

== ENCOUNTER 2023-06-13 10:58 | Outpatient (CLI) | payer MEDICARE, BC, SELFPAY ==
--- OUTSIDE RECORDS SUMMARY | 2023-06-13 11:00 | XMS_ITS | Clinical Summary ---
Author Name Unknown Organization [facility] Address [place], [place] [address] Care Team Providers Care Annealing Torch Operator Name Role Phone Casa Lucia MD Unavailable Unavailable Rudy Riddle MD Unavailable [phone] Rudy Riddle MD Primary Care Provider + Allergies Active Allergy Reactions Criticality Noted Date Comments Gabapentin Other - Describe In Comment Field Medium 08/04/2020 Dizzy, memory issue Dizzy, memory issue Morphine Itching 02/04/2010 After 3 days of use Pregabalin Anaphylaxis,Itching High 02/16/2017 swell swell Misvmka-Xao-Yhv Reductase Inhibitors Myalgia 02/13/2014 Medications Medication Sig [...] Comments Blood Pressure 162/87 07/21/2022 9:21 PM TECHNICAL SUPPORT ASSOCIATE Pulse 100 07/21/2022 9:21 PM TECHNICAL SUPPORT ASSOCIATE Temperature 37.1 ??C (98.8 ??F) 07/21/2022 8:51 PM CS T Respiratory Rate 18 07/21/2022 8:51 PM TECHNICAL SUPPORT ASSOCIATE Oxygen Saturation 96% 07/21/2022 9:21 PM TECHNICAL SUPPORT ASSOCIATE Inhaled Oxygen Concentration - - Weight 83.9 kg (185 lb) 07/21/2022 5:35 PM TECHNICAL SUPPORT ASSOCIATE Height 175.3 cm (5' 9) 07/21/2022 5:35 PM TECHNICAL SUPPORT ASSOCIATE Body Mass Index 27.32 07/21/2022 5:35 PM TECHNICAL SUPPORT ASSOCIATE Plan of Treatment Health Maintenance Due Date [...] age 77 05/12/203205/12, 02/04/2006 [facility] Tdap Completed 08/16/2016 Pneumococcal series for age [...] Preferences, Provider to review later Care Teams Annealing Torch Operator Relationship Specialty Start Date End Date Rudy Riddle MD [address] [place] [address] PCP - General Family Practice 05/25/22 Casa Lucia MD [address] [facility] [address] [place] [address] Ophthalmology Ophthalmology Surgery 12/22/11 Rudy Riddle MD [address] [facility] [place] [place] [address] Family Practice 05/07/22
--- OUTSIDE RECORDS SUMMARY | 2023-06-13 11:00 | XMS_ITS | Clinical Summary ---
Author Name Unknown Organization [facility] Address [address] [place] [address] Care Team Providers Care Shuttle Final Inspector Name Role Phone Elsewhere, Pcp Primary Care Provider Unavailabl e Source Comments Patient records contain information from all sites at [facility]. For routine questions regarding patient records, call [phone] during business hours, M-F 8:00 AM - 5:00 PM Central Time. Record requests for emergency care only can be directed to [phone] at any time.[facility] Allergies Active Allergy Reactions Criticality Noted Date Comments Gabapentin Other (see comments) Medium 08/04/2020 Dizzy, memory issue Morphine Itching,Rash Medium 02/14/2012 itchy Pregabalin Anaphylaxis High 02/16/2017 swell Mcipswb-Phu-Kiv Reductase Inhibitors Myalgia Low 02/13/2014 Medications Medication [...] TAKE ONE CAPSULE BY MOUTH EVERY DAY MITER OPERATOR 0 01/14/2022 Active amLODIPine (NORVASC) 5 mg [...] 04/21/2018 Restless Leg Syndrome 01/12/2018 Atherosclerosis Of [place] Ar 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 08/08/2017 Hyperlipidemia 07/22/2017 Ulcer Leg Left 04/19/2017 Ulcer Toe Left 04/19/2017 Atherosclerosis Of [place] Ar teries Of Left Leg With Ulceration Of Unspecified Site 04/19/2017 Peripheral Arterial Disease 02/16/2017 Hypertension NOS 02/16/2017 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 09/23/2016 Overview: Hypertension (HTN) And CKD Stage 1-4 Schedule Checker Use Of Insulin Active 09/23/2016 Overview: Prison Use Of Insulin Active Depression Major Recurrent Moderate 06/22/2016 Overview: Depression Major Recurrent Moderate Diabetes Mellitus Type 2 Wit h Other Circulatory Complication Hyperglycemic 06/22/2016 Overview: DM2 Peripheral Neuropathy Uncontrolled Encounters Date Type Department Care Team Description 04/26/2023 Orders Only Division of Nephrology and Hypertension in [place], [place] [address] [place] [address] Haseeb Menon Jr. D.O. 04/15/2023 Orders Only Division of Nephrology and Hypertension in [place], [place] [address] [place] [address] Haseeb Menon Jr., D.O. Chronic Kidney Disease Stage 5 Glomerular Filtration Rate Less Than 15 (HCC) (Primary Dx); 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 (HCC); Sleep Disorder 03/21/2023 Orders Only Division of Nephrology and Hypertension in [place], [place] [address] [place] [address] Haseeb Menon Jr. D.O. 03/13/2023 Refill Division of Nephrology and Hypertension in [place], [place] [address] [place] [address] Haseeb Menon Jr., D.O. Med Refill from [...] How often do you attend synagogue or mu-ism serv ices? 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 Body Location - Other. Vascular. Device Status Text - [id number]. Ocular Lens-10/29/2007 Implanted:10/28 by Myrom, Nato J, LAMINA SEARCHER, C.N.P., R.N. (Quantity not on file) Ocular Lens Bilateral: Eye Description:Cataract extract ion and insertion of intraocular lens 06/22/2016 09:27 - NATO DOUGHERTY LAMINA SEARCHER ANNUAL GIVING DIRECTOR bilateral Conversions - Default Historical Implant Device Implanted:03/04 (Quantity not on file) Ocular Lens Right: Eye Description:Body Location - Eye R. Eye L. Eye R. Device Status Text - OculrLens. Conversions - Default Historical Implant Device Implanted:05/27 (Quantity not on file) Ocular Lens Left: Eye Description:Body Location - Eye L. Device Status Text - OculrLens. Stent Vbx [id number] - [id number] Implanted:Qty: 1 on 03/04/2017 Vascular Graft Other/Legacy - See Implant Description [place] Description:Device Manufactu rer - [employer] Body Location - Other. n/a. Device Status Text - [id number]. Stent Zilver Ptx 6mm X 60mm - Flores [id number] Implanted:Qty: 1 on 04/04/2017 Vascular Stent Other/Legacy - See Implant Description [employer] Description:Device Manufactu rer - [employer]. Body Location - Other. Left. Device Status Text - [id number]. Stent Zilver Ptx 6mm X 80mm - [id number] Implanted:Qty: 1 on 08/31/2017 Vascular Stent Right: Other/Legacy - See Implant Description [employer] / [id number] / Description:Device Manufactu rer - [employer]. Body Location - Right. Device Status Text - [id number]. Stnt Innova Otw [id number] - [id number] Implanted:Qty: 1 on 04/18/2018 by Kemar Velásquez M.B.B.S. at [facility] Vascular Stent [place] [employer] 05/23/2020 [id number] / / [id number] Stnt Innova Otw [id number] - [id number] Implanted:Qty: 1 on 05/11/2019 by Kemar Velásquez M.B.B.S. at [facility] Vascular Stent Left: Leg [place] [employer] 09/05/2020 [id number] / / [id number] Advance Directives For more information, please contact: [phone] Latest Code Status on File Code Status [...] Answer Comments Full Code: Discussed Care Teams Shuttle Final Inspector Relationship Specialty Start Date End Date Elsewhere, Pcp PCP - General Family Medicine 01/29/20
--- OUTSIDE RECORDS SUMMARY | 2023-06-13 11:01 | XMS_ITS | Referral Summary ---
Author Name Unknown Organization [facility] Address [address] [place] [address] Care Team Providers Care Supervisor Boiler Repair Name Role Phone Elsewhere, Pcp Primary Care Provider Unavailabl e Source Comments Patient records contain information from all sites at [facility]. For routine questions regarding patient records, call [phone] during business hours, M-F 8:00 AM - 5:00 PM Central Time. Record requests for emergency care only can be directed to [phone] at any time.[facility] Encounters Date Type Department Care Team Description 04/26/2023 Orders Only Division of Nephrology and Hypertension in [place], [place] [address] [place] [address] Haseeb Menon Jr., D.O. 04/15/2023 Orders Only Division of Nephrology and Hypertension in [place], [place] [address] [place] [address] Haseeb Menon Jr., Kylah.O. Chronic Kidney Disease Stage 5 Glomerular Filtration Rate Less Than 15 (HCC) (Primary Dx); 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 (HCC); Sleep Disorder 03/21/2023 Orders Only Division of Nephrology and Hypertension in [place], [place] [address] [place] [address] Haseeb Menon Jr., D.O. 03/13/2023 Refill Division of Nephrology and Hypertension in [place], [place] [address] [place] [address] Haseeb Menon Jr. D.O. Med Refill from Last 3 Months Allergies Active Allergy Reactions Criticality Noted Date Comments Gabapentin Other (see comments) Medium 08/04/2020 Dizzy, memory issue Morphine Itching,Rash Medium 02/14/2012 itchy Pregabalin Anaphylaxis High 02/16/2017 swell Qttpuix-Bxh-Qmv Reductase Inhibitors Myalgia Low 02/13/2014 Medications Medication [...] TAKE ONE CAPSULE BY MOUTH EVERY DAY FPC 0 01/14/2022 Active amLODIPine (NORVASC) 5 mg [...] 04/21/2018 Restless Leg Syndrome 01/12/2018 Atherosclerosis Of [place] Ar 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 08/08/2017 Hyperlipidemia 07/22/2017 Ulcer Leg Left 04/19/2017 Ulcer Toe Left 04/19/2017 Atherosclerosis Of [place] Ar teries Of Left Leg With Ulceration Of Unspecified Site 04/19/2017 Peripheral Arterial Disease 02/16/2017 Hypertension NOS 02/16/2017 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 09/23/2016 Overview: Hypertension (HTN) And CKD Stage 1-4 Foreign Student Adviser Use Of Insulin Active 09/23/2016 Overview: Foreign Student Adviser Use Of Insulin Active Depression Major Recurrent [...] How often do you attend baptist or scientology serv ices? Never 03/24/2021 Do [...] Answer Date Recorded PHQ-2 Score 0 10/20/2018 [facility] [place] Occupat ional Health - Occupational Stress [...] your living situation today? I have a [facility] place to live 10/26/2022 Education Answer Date Recorded What is the highest level of school you have completed or the highest degree you have received? 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/2021 8:13 PM WRAP YARN SORTER Gender Identity Male 08/31/2019 2:40 PM CDT [...] on file Medical Devices Implanted Type Area Drum Dyeing Machine Operator Device Identifier Shelf Expiration Date Model / Serial / Lot Patch Vasc Bovine.08cm X 8cm - Flores [id number] Implanted:Qty: 1 on 04/04/2017 Mesh or Patch Other/Legacy - See Implant Description Synovis Description:Device Manufactu rer - Synovis. Body Location - Other. Vascular. Device Status Text - [id number]. Ocular Lens-10/29/2007 Implanted:10/28 by Nato Dougherty, JULIÁN, C.N.P., R.N. (Quantity not on file) Ocular Lens Bilateral: Eye Description:Cataract extract ion and insertion of intraocular lens 06/22/2016 09:27 - NATO DOUGHERTY PROPOSAL DIRECTOR POWER PROJECT MANAGER bilateral Conversions - Default Historical Implant Device Implanted:03/04 (Quantity not on file) Ocular Lens Right: Eye Description:Body Location - Eye R. Eye L. Eye R. Device Status Text - OculrLens. Conversions - Default Historical Implant Device Implanted:05/27 (Quantity not on file) Ocular Lens Left: Eye Description:Body Location - Eye L. Device Status Text - OculrLens. Stent Vbx [id number] - [id number] Implanted:Qty: 1 on 03/04/2017 Vascular Graft Other/Legacy - See Implant Description [place] Description:Device Manufactu rer - [employer] [place] [employer] Body Location - Other. n/a. Device Status Text - [id number]. Stent Zilver Ptx 6mm X 60mm - Flores [id number] Implanted:Qty: 1 on 04/04/2017 Vascular Stent Other/Legacy - See Implant Description [employer] Description:Device Manufactu rer - Cook [employer]. Body Location - Other. Left. Device Status Text - [id number]. Stent Zilver Ptx 6mm X 80mm - Flores [id number] Implanted:Qty: 1 on 08/31/2017 Vascular Stent Right: Other/Legacy - See Implant Description [employer] / [id number] / Description:Device Manufactu rer - [employer]. Body Location - Right. Device Status Text - [id number]. Stnt Innova Otw [id number] - [id number] Implanted:Qty: 1 on 04/18/2018 by Kemar Velásquez M.B.B.S. at [facility] Vascular Stent [place] [employer] 05/23/2020 [id number] / / [id number] Stnt Innova Otw [id number] - [id number] Implanted:Qty: 1 on 05/11/2019 by Kemar Velásquez M.B.B.S. at [facility] Vascular Stent Left: Leg [place] [employer] 09/05/2020 [id number] / / [id number] Advance Directives For more information, please contact: [phone] Latest Code Status on File Code Status [...] Answer Comments Full Code: Discussed Care Teams Supervisor Boiler Repair Relationship Specialty Start Date End Date Elsewhere, Pcp PCP - General Family Medicine 01/29/20
--- OUTSIDE RECORDS SUMMARY | 2023-06-13 11:01 | XMS_ITS | Encounter Summary ---
Author Name Unknown Organization [facility] Address [address] [place] [address] Care Team Providers Care Stockroom Clerk Name Role Phone Elsewhere, Pcp Primary Care Provider Unavailabl e Reason for Referral * Outpatient (Routine) - Closed Specialty Diagnoses / Procedures Referred By Robi hong Referred To Contact Diagnoses Follow Up Examination Status Post Surgery Peripheral Arterial Disease (HCC) Procedures US Aorta Iliac Arteries Bilateral with Doppler Jayjay Pak P.A.-C. [address] [place] [address] [facility] Referral ID Status Reason Start Date Expiration Date Visits Re quested Visits Authorized [id number] Closed 02/23/2022 02/23/2023 1 1 Reason for Visit * Outpatient (Routine) - Closed Specialty Diagnoses / Procedures Referred By Robi hong Referred To Contact Diagnoses Follow Up Examination Status Post Surgery Peripheral Arterial Disease (HCC) Procedures US Aorta Iliac Arteries Bilateral with Doppler Jayjay Pak P.A.-C. [address] [place] [address] [facility] Referral ID Status Reason Start Date Expiration Date Visits Re quested Visits Authorized [id number] Closed 02/23/2022 02/23/2023 1 1 Encounter Details Date Type Department Care Team (Latest Contact Info) Description 03/03/2023 8:00 AM CDT Hospital Encounter Department of Radiology, [facility], in [place], [place] [address] [place] [address] Jayjay Pak P.A.-C. [address] [place] [address] Follow Up Examination Status Post Surgery; Peripheral [...] week 03/24/2021 How often do you attend confucianist or hoahaoism serv ices? Never 03/24/2021 Do you belong to any clubs o r organizations such as confucianist groups, unions, fraternal or athletic groups, or [...] Date Recorded PHQ-2 Score 0 10/20/2018 [facility] of Occupat ional Health [...] your living situation today? I have a [facility] place to live 10/26/2022 Education Answer Date Recorded What is the highest level of school you have completed or the highest degree you have received? 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 2. 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 [...] demonstrated are elevated Doppler velocities in the [place] external iliac artery (273 cm/s today, previously [...] stenoses on theright. 2. 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 Jayjay ETIENNE US PROCEDURE S documented in this encounter Visit Diagnoses Diagnosis Follow Up Examination Status Post Surgery Peripheral Arterial Disease (HCC) documented in this encounter Additional Health Concerns Assessment Noted Time PHQ-9 Depression Total Score: 3 01/04/20 18 10:38 AM CDT documented as of this encounter Care Teams Stockroom Clerk Relationship Specialty Start Date End Date Elsewhere, Pcp PCP - General Family Medicine 01/29/20 documented as of this encounter
--- OUTSIDE RECORDS SUMMARY | 2023-06-13 11:01 | XMS_ITS | Encounter Summary ---
Author Name Unknown Organization [facility] Address [address] [place] [address] Care Team Providers Care Salesforce Specialist Name Role Phone Elsewhere, Pcp Primary Care Provider Unavailabl e Reason for Visit * Reason Comments Med Refill Encounter Details Date Type Department Care Team ([facility] st Contact Info) Description 03/13/2023 Refill Division of Nephrology and Hypertension in [place], [place] [address] [place] [address] Haseeb Menon Jr., D.O. [address] [place] [address] Med Refill Social History Tobacco Use Types [...] How often do you attend taoism or judaism serv ices? Never 03/24/2021 Do you belong [...] PHQ-2 Score 0 10/20/2018 [facility] - Occupational Stress Questionnaire Answer [...] your living situation today? I have a [facility] place to live 10/26/2022 Education Answer Date Recorded What is the highest level of school you have completed or the highest degree you have received? 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/2021 8:13 PM MICA PARTS SPRAYER Gender Identity Male 08/31/2019 2:40 PM CDT Sexual Orientation Straight 08/31/2019 2: 40 PM CDT documented as of this encounter Plan of Treatment Not on file documented as of this encounter Visit Diagnoses Not on filedocumented in this encounter Additional Health Concerns Assessment Noted Time PHQ-9 Depression Total Score: 3 01/04/20 18 10:38 AM CDT documented as of this encounter Care Teams Salesforce Specialist Relationship Specialty Start Date End Date Elsewhere, Pcp PCP - General Family Medicine 01/29/20 documented as of this encounter
--- OUTSIDE RECORDS SUMMARY | 2023-06-13 11:01 | XMS_ITS | Encounter Summary ---
Author Name Unknown Organization [facility] Address [address] [place] [address] Care Team Providers Care Oracle Business Intelligence Developer Name Role Phone Elsewhere, Pcp Primary Care Provider Unavailabl e Reason for Referral * Outpatient (Routine) - Authorized Specialty Diagnoses / Procedures Referred By Robi hong Referred To Contact Sleep Medicine Diagnoses Chronic Kidney Disease Stage 5 Glomerular Filtration Rate Less Than 15 (HCC) 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 (HCC) Sleep Disorder Haseeb Menon Jr., D.O. [address] [place] [address] [facility] Referral ID Status Reason Start Date Expiration Date Visits Requested Visits Authorized [id number] Authorized Specialty Services Required 04/15/2023 04/14/2024 1 1 CULTURAL SCIENCE PROFESSOR Encounter Details Date Type Department Care Team (Late st Contact Info) Description 04/15/2023 Orders Only Division of Nephrology and Hypertension in [place], [place] [address] [place] [address] Haseeb Menon Jr., D.O. [address] [place] [phone] Chronic Kidney Disease Stage 5 Glomerular Filtration [...] How often do you attend sabianist or mu-ism serv ices? Never 03/24/2021 Do [...] living situation today? I have a [facility] place to live 10/26/2022 Education Answer Date Recorded What is the highest level of school you have completed or the highest degree you have received? 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/2021 8:13 PM AGRICULTURAL SCIENCE PROFESSOR Gender Identity Male 08/31/2019 2:40 PM [...] documented as of this encounter Care Teams Oracle Business Intelligence Developer Relationship Specialty Start Date End Date Elsewhere, Pcp PCP - General Family Medicine 01/29/20 documented as of this encounter
--- OUTSIDE RECORDS SUMMARY | 2023-06-13 11:01 | XMS_ITS ---
Author Name Unknown Organization [facility] Address [address] [place] [address] Care Team Providers Care Bar Hostess Name Role Phone Unavailable Unavailable Unavailable Surgery Details Not on file Complications Check Surgery Details section. Procedure Estimated Blood Loss Check Surgery Details section. Procedure Findings Check Surgery Details section. Procedure Specimens Taken Check Surgery Details section.
--- OUTSIDE RECORDS SUMMARY | 2023-06-13 11:01 | XMS_ITS | Encounter Summary ---
Author Name Unknown Organization [facility] Address [address] [place] [address] Care Team Providers Care Salary Manager Name Role Phone Elsewhere, Pcp Primary Care Provider Unavailabl e Reason for Referral * Outpatient (Routine) - Closed Specialty Diagnoses / Procedures Referred By Robi hong Referred To Contact Diagnoses Follow Up Examination Status Post Surgery Peripheral Arterial Disease (HCC) Procedures US Lower Extremity Arteries Bilateral US Lower Extremity Artery Graft Bilateral Jayjay Pak P.A.-C. [address] [place] [address] [facility] Referral ID Status Reason Start Date Expiration Date Visits Re quested Visits Authorized [id number] Closed 02/23/2022 02/23/2023 1 1 Reason for Visit * Outpatient (Routine) - Closed Specialty Diagnoses / Procedures Referred By Robi hong Referred To Contact Diagnoses Follow Up Examination Status Post Surgery Peripheral Arterial Disease (HCC) Procedures US Lower Extremity Arteries Bilateral US Lower Extremity Artery Graft Bilateral Jayjay Pak P.A.-C. [address] [place] [address] [facility] Referral ID Status Reason Start Date Expiration Date Visits Re quested Visits Authorized [id number] Closed 02/23/2022 02/23/2023 1 1 Encounter Details Date Type Department Care Team (Latest Contact Info) Description 03/03/2023 8:21 AM CDT - 03/03/2023 11:59 PM CDT Hospital Encounter Department of Radiology, [facility], in [place], [place] [address] [place] [address] Jayjay Pak P.A.-C. [address] [place] [address] Follow Up Examination Status Post Surgery; Peripheral [...] week 03/24/2021 How often do you attend jew or yarsanism serv ices? 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 LEFT: New stenosis of the [place] proximal superficial femoral artery. Widely patent mid [...] femoral: New elevated Doppler velocities in the [place] proximal vessel (up to 166 cm/sec), consistent [...] artery stents. LEFT: New stenosis of the [place] proximal superficial femoral artery.Widely patent mid SFA [...] documented as of this encounter Care Teams Salary Manager Relationship Specialty Start Date End Date Elsewhere, Pcp PCP - General Family Medicine 01/29/20 documented as of this encounter
--- OUTSIDE RECORDS SUMMARY | 2023-06-13 11:01 | XMS_ITS | Encounter Summary ---
Author Name Unknown Organization [facility] Address [address] [place] [address] Care Team Providers Care Contact Lens Cutter Name Role Phone Elsewhere, Pcp Primary Care Provider Unavailabl e Reason for Referral * Outpatient (Routine) - Closed Specialty Diagnoses / Procedures Referred By Robi hong Referred To Contact Diagnoses Follow Up Examination Status Post Surgery Peripheral Arterial Disease (HCC) Procedures Lower Extremity Arterial (MIMI) - Exercise (Claudication) Jayjay Pak P.A.-C. [address] [place] [phone] [facility] Referral ID Status Reason Start Date Expiration Date Visits Re quested Visits Authorized [id number] Closed 02/23/2022 02/23/2023 1 1 Reason for Visit * Outpatient (Routine) - Closed Specialty Diagnoses / Procedures Referred By Robi hong Referred To Contact Diagnoses Follow Up Examination Status Post Surgery Peripheral Arterial Disease (HCC) Procedures Lower Extremity Arterial (MIMI) - Exercise (Claudication) Jayjay Pak P.A.-C. [address] [place] [phone] [facility] Referral ID Status Reason Start Date Expiration Date Visits Re quested Visits Authorized [id number] Closed 02/23/2022 02/23/2023 1 1 Encounter Details Date Type Department Care Team (Latest Contact Info) Description 03/03/2023 8:01 AM CDT - 03/03/2023 8:20 AM CDT Hospital Encounter Department of Vascular Medicine in [place], [place] [address] [place] [address] Jayjay Pak P.A.-C. [address] [place] [address] Follow Up Examination Status Post Surgery; Peripheral [...] often do you attend roman catholic or episcopal serv ices? Never 03/24/2021 Do [...] Answer Date Recorded PHQ-2 Score 0 10/20/2018 [facility] [place] of Occupat ional Health - Occupational Stress [...] Sex Assigned at Male 03/24/2021 8:13 PM HOURLY ASSOCIATE Gender Identity Male 08/31/2019 2:40 PM [...] documented as of this encounter Care Teams Contact Lens Cutter Relationship Specialty Start Date End Date Elsewhere, Pcp PCP - General Family Medicine 01/29/20 documented as of this encounter
--- OUTSIDE RECORDS SUMMARY | 2023-06-13 11:01 | XMS_ITS | Encounter Summary ---
Author Name Unknown Organization [facility] Address [address] [place] [address] Care Team Providers Care Welcome Hostess Name Role Phone Elsewhere, Pcp Primary Care Provider Unavailabl e Reason for Visit * Outpatient (Routine) - Closed Specialty Diagnoses / Procedures Referred By Robi t Referred To Contact Vascular Medicine Jayjay Pak, XiA.-CFei [address] [place] [phone] [facility] Referral ID Status Reason Start Date Expiration Date Visits Re quested Visits Authorized [id number] Closed 02/23/2022 02/22/2025 1 1 Encounter Details Date Type Department Care Team (Late st Contact Info) Description 03/03/2023 1:00 PM CDT Office Visit Department of Vascular Medicine in [place], [place] [address] [place] [phone] Jayjay Pak, PFeiAFei-CFei [address] [place] [phone] Follow Up Examination Status Post Surgery (Primary [...] week 03/24/2021 How often do you attend rastafarian or caodaism serv ices? Never 03/24/2021 Do you belong to any clubs o r organizations such as rastafarian groups, unions, fraternal or athletic groups, or [...] Answer Date Recorded PHQ-2 Score 0 10/20/2018 [facility] [place] of Occupat ional Health - Occupational Stress [...] your living situation today? I have a [facility] place to live 10/26/2022 Education Answer Date Recorded What is the highest level of school you have completed or the highest degree you have received? 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/2021 8:13 PM SOCIAL MEDIA DIRECTOR Gender Identity Male 08/31/2019 2:40 PM [...] his own. He has not seen a county engineer recently. Overall the swelling and discoloration seems [...] artery stents. LEFT: New stenosis of the [place] proximal superficial femoral artery. Widely patent mid SFA stents. Similar stenosis in the posterior tibial artery. U/S: 1. Patent bilateral iliac artery stents with unchanged stenoses on the right. 2. 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 [...] colleague's recommendations, and he will see a county engineer. I will follow up with him in [...] documented as of this encounter Care Teams Welcome Hostess Relationship Specialty Start Date End Date Elsewhere, Pcp PCP - General Family Medicine 01/29/20 documented as of this encounter
--- OUTSIDE RECORDS SUMMARY | 2023-06-13 11:01 | XMS_ITS | Encounter Summary ---
Author Name Unknown Organization [facility] Address [address] [place] [address] Care Team Providers Care Performance Tester Name Role Phone Elsewhere, Pcp Primary Care Provider Unavailabl e Encounter Details Date Type Department Care Team (Latest Contact Info) Description 03/02/2023 10:30 AM CDT Clinical Communication Virtual Review in [place], [place] [address] [place], [place] [phone] Canceled Social History Tobacco Use Types Packs/Day [...] How often do you attend anabaptist or gnosticism serv ices? Never 03/24/2021 Do [...] Answer Date Recorded PHQ-2 Score 0 10/20/2018 [facility] [place] of Occupat ional Health - Occupational Stress [...] your living situation today? I have a [facility] place to live 10/26/2022 Education Answer Date Recorded What is the highest level of school you have completed or the highest degree you have received? 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/2021 8:13 PM ONLINE COMMUNICATIONS MANAGER Gender Identity Male 08/31/2019 2:40 PM CDT Sexual Orientation Straight 08/31/2019 2: 40 PM CDT documented as of this encounter Plan of Treatment Not on file documented as of this encounter Visit Diagnoses Not on filedocumented in this encounter Additional Health Concerns Assessment Noted Time PHQ-9 Depression Total Score: 3 01/04/20 18 10:38 AM CDT documented as of this encounter Care Teams Performance Tester Relationship Specialty Start Date End Date Elsewhere, Pcp PCP - General Family Medicine 01/29/20 documented as of this encounter
--- OUTSIDE RECORDS SUMMARY | 2023-06-13 11:01 | XMS_ITS | Encounter Summary ---
Author Name Unknown Organization [facility] Address [address] [place] [address] Care Team Providers Care Trestle Mechanic Name Role Phone Elsewhere, Pcp Primary Care Provider Unavailabl e Encounter Details Date Type Department Care Team (Late st Contact Info) Description 03/21/2023 Orders Only Division of Nephrology and Hypertension in [place], [place] [address] [place] [address] Haseeb Menon Jr., D.O. [address] [place] [phone] Social History Tobacco Use Types Packs/Day Years [...] often do you attend quaker or moravian serv ices? Never 03/24/2021 Do [...] your living situation today? I have a [facility] place to live 10/26/2022 Education Answer Date Recorded What is the highest level of school you have completed or the highest degree you have received? 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/2021 8:13 PM ADMINISTRATIVE TECH Gender Identity Male 08/31/2019 2:40 PM CDT Sexual Orientation Straight 08/31/2019 2: 40 PM CDT documented as of this encounter Plan of Treatment Not on file documented as of this encounter Visit Diagnoses Not on filedocumented in this encounter Additional Health Concerns Assessment Noted Time PHQ-9 Depression Total Score: 3 01/04/20 18 10:38 AM CDT documented as of this encounter Care Teams Trestle Mechanic Relationship Specialty Start Date End Date Elsewhere, Pcp PCP - General Family Medicine 01/29/20 documented as of this encounter
--- OUTSIDE RECORDS SUMMARY | 2023-06-13 11:01 | XMS_ITS | Encounter Summary ---
Author Name Unknown Organization [facility] Address [address] [place] [address] Care Team Providers Care Street Light Wirer Name Role Phone Elsewhere, Pcp Primary Care Provider Unavailabl e Encounter Details Date Type Department Care Team (Late st Contact Info) Description 04/26/2023 Orders Only Division of Nephrology and Hypertension in [place], [place] [address] [place] [address] Haseeb Menon Jr., D.O. [address] [place] [address] Social History Tobacco Use Types Packs/Day Years [...] How often do you attend samaritan or taoism serv ices? Never 03/24/2021 Do [...] Answer Date Recorded PHQ-2 Score 0 10/20/2018 [facility] of Occupat ional Health - [...] your living situation today? I have a [facility] place to live 10/26/2022 Education Answer Date Recorded What is the highest level of school you have completed or the highest degree you have received? 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/2021 8:13 PM SNUFF CONTAINER INSPECTOR Gender Identity Male 08/31/2019 2:40 PM CDT Sexual Orientation Straight 08/31/2019 2: 40 PM CDT documented as of this encounter Plan of Treatment Not on file documented as of this encounter Visit Diagnoses Not on filedocumented in this encounter Additional Health Concerns Assessment Noted Time PHQ-9 Depression Total Score: 3 01/04/20 18 10:38 AM CDT documented as of this encounter Care Teams Street Light Wirer Relationship Specialty Start Date End Date Elsewhere, Pcp PCP - General Family Medicine 01/29/20 documented as of this encounter
--- OUTSIDE RECORDS SUMMARY | 2023-06-13 11:01 | XMS_ITS | Encounter Summary ---
Author Name Unknown Organization [facility] Address [address] [place] [address] Care Team Providers Care Mineral Ore Processing Labourer Name Role Phone Elsewhere, Pcp Primary Care Provider Unavailabl e Encounter Details Date Type Department Care Team (Latest Contact Info) Description 02/17/2023 9:18 AM CDT - 02/17/2023 11:59 PM CDT Hospital Encounter Department of Laboratory Medicine in [place], [place] [address] [place] [address] Haseeb Menon Jr., D.O. [address] [place] [phone] 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 [...] How often do you attend yarsanism or restorationism serv ices? Never 03/24/2021 Do [...] Date Recorded PHQ-2 Score 0 10/20/2018 [facility] [place] of Occupat ional Health - Occupational Stress [...] your living situation today? I have a [facility] place to live 10/26/2022 Education Answer Date Recorded What is the highest level of school you have completed or the highest degree you have received? 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/2021 8:13 PM ADVANCED QUALITY ENGINEER Gender Identity Male 08/31/2019 2:40 PM [...] TAKE ONE CAPSULE BY MOUTH EVERY DAY PROGRAM REVIEW DIRECTOR 0 01/14/2022 nortriptyline (PAMELOR) 50 mg capsule [...] AM CDT 02/17/2023 11:00 AM CDT Haseeb eMnon Jr., D.O. LAB URINE OR DERABLES [facility] [address] [place] [address], [facility] OWAT [facility] in [place] [address] [place] [address] * (ABNORMAL) Urinalysis with Microscopic: Urine, Voided [...] 8.0 02/17/2023 10:03 AM CDT FB60 Specific [place] 1.015 1.001 - 1.035 02/17/2023 10:03 AM [...] Menon Jr., D.OFei LAB URINE OR DERABLES [facility] [address] [place] [address], [facility] FB60 [facility] in [place] [address] [place] [address] documented in this encounter Visit Diagnoses Diagnosis 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 (HCC) 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
--- OUTSIDE RECORDS SUMMARY | 2023-06-13 11:02 | XMS_ITS | Encounter Summary ---
Author Name Unknown Organization [facility] Address [address] [place] [address] Care Team Providers Care Mechanical Drawing Teacher Name Role Phone Elsewhere, Pcp Primary Care Provider Unavailabl e Encounter Details Date Type Department Care Team (Latest Contact Info) Description 02/14/2023 10:18 AM CDT - 02/14/2023 11:59 PM CDT Hospital Encounter Department of Laboratory Medicine in [place], [place] [address] [place] [address] Haseeb Menon Jr., D.O. [address] [place] [phone] Diabetes Mellitus Type 2 With Other Circulatory [...] week 03/24/2021 How often do you attend latter day or lutheran serv ices? Never 03/24/2021 Do you belong to any clubs o r organizations such as latter day groups, unions, fraternal or athletic groups, or [...] Answer Date Recorded PHQ-2 Score 0 10/20/2018 [facility] [place] of Occupat ional Health - Occupational Stress [...] your living situation today? I have a [facility] place to live 10/26/2022 Education Answer Date Recorded What is the highest level of school you have completed or the highest degree you have received? 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 Higher concentrations of biotin may be found in multivitamins, hair/nail supplements, and workout supplements. If the result does not match clinical observations, repeat testing after patient refrains from the use of supplements for at least 12 hours. Blood (Blood, Venous) 02/14/2023 11:09 AM CDT 02/14/2023 3:29 PM CDT Narrative [facility] - 02/14/2023 3:29 PM CDT Specimen Information: Specimen ID: [id number] Specimen Type: Blood Specimen Collection Start Date: 02/14/2023 11:09 AM Specimen Received Date: 02/14/2023 ??3:29 PM Specimen ID: [id number] Specimen Type: Blood Specimen Collection Start Date: 02/14/2023 11:09 AM Specimen Received Date: 02/14/2023 ??2:48 PM Haseeb Menon Jr., D.O. LAB MICROBIO LOGY - BLOOD ORDERABLES [facility] [address] [place] [address], [place] [facility] [place] [address] [place] [address] * HBc Total Ab, Serum (02/14/2023 11:09 AM CDT) HBc Total Ab, S Negative Negative 02/15/2023 9:08 AM CDT [facility] Blood (Blood, Venous) 02/14/2023 11:09 AM CDT 02/15/2023 6:57 AM CDT Haseeb Menon Jr., D.O. LAB MICROBIO LOGY - BLOOD ORDERABLES Performing Organization Address City/[facility]/ZIP Co de Phone Number [facility] [address] [place] [address] [facility] [address] [place] [address] * HBs Antibody, Serum (02/14/2023 11:09 AM [...] D.O. LAB MICROBIO LOGY - BLOOD ORDERABLES [facility] [address] [place] [address], [facility] [address] [place] [address] * Hepatitis B Surface Antigen (02/14/2023 11:09 AM CDT) [facility] HBs Antigen, S Nonreactive Nonreactive 02/14/2023 4:34 PM CDT [facility] Blood (Blood, Venous) 02/14/2023 11:09 AM CDT 02/14/2023 3:28 PM CDT Haseeb Menon Jr., D.O. LAB MICROBIO LOGY - BLOOD ORDERABLES [facility] [address] [place] [address], [facility] - [address] [address] * QuantiFERON-Tb Gold Plus, Blood (02/14/2023 11:09 AM CDT) [facility] QuantiFERON-TB Gold Plus Result Negative Negative [...] AM CDT 02/16/2023 11:08 AM CDT Narrative [facility] - 02/17/2023 12:53 PM CDT Specimen Information: Specimen ID: [id number] Specimen Type: Blood Specimen Collection Start Date: 02/14/2023 11:09 AM Specimen Received Date: 02/16/2023 11:08 AM Specimen ID: [id number] Specimen Type: Blood Specimen Collection Start Date: 02/14/2023 11:09 AM Specimen Received Date: 02/16/2023 11:08 AM Specimen ID: [id number] Specimen Type: Blood Specimen Collection Start Date: 02/14/2023 11:09 AM Specimen Received Date: 02/16/2023 11:08 AM Specimen ID: [id number] Specimen Type: Blood Specimen Collection Start Date: 02/14/2023 11:09 AM Specimen Received Date: 02/16/2023 11:08 AM Haseeb Menon Jr. DFeiO. LAB MICROBIO LOGY - BLOOD ORDERABLES [facility] [address] [place] [address], [facility] [place] [address] documented in this encounter Visit Diagnoses Diagnosis Diabetes Mellitus Type 2 With Other Circulatory Complication Hyperglycemic (HCC) 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 (HCC) documented in this encounter Additional Health Concerns Assessment Noted Time PHQ-9 Depression Total Score: 3 01/04/20 18 10:38 AM CDT documented as of this encounter Care Teams Mechanical Drawing Teacher Relationship Specialty Start Date End Date Elsewhere, Pcp PCP - General Family Medicine 01/29/20 documented as of this encounter
--- OUTSIDE RECORDS SUMMARY | 2023-06-13 11:02 | XMS_ITS | Encounter Summary ---
Author Name Unknown Organization [facility] Address [address] [place] [address] Care Team Providers Care Tire Assembler Name Role Phone Elsewhere, Pcp Primary Care Provider Unavailabl e Encounter Details Date Type Department Care Team (Latest Contact Info) Description 02/17/2023 9:18 AM CDT - 02/17/2023 11:59 PM CDT Hospital Encounter Department of Laboratory Medicine in [place], [place] [address] [place] [address] Haseeb Menon Jr., D.O. [address] [place] [phone] 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 [...] How often do you attend scientology or baptism serv ices? 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 [...] AM CDT 02/19/2023 4:15 PM CDT Narrative [facility] - 02/21/2023 12:00 PM CDT Specimen Information: Specimen ID: [id number] Specimen Type: Blood Specimen Collection Start Date: 02/17/2023 ??9:35 AM Specimen Received Date: 02/19/2023 ??4:15 PM Specimen ID: [id number] Specimen Type: Blood Specimen Collection Start Date: 02/17/2023 ??9:35 AM Specimen Received Date: 02/19/2023 ??4:15 PM Specimen ID: [id number] Specimen Type: Blood Specimen Collection Start Date: 02/17/2023 ??9:35 AM Specimen Received Date: 02/19/2023 ??4:15 PM Specimen ID: [id number] Specimen Type: Blood Specimen Collection Start Date: 02/17/2023 ??9:35 AM Specimen Received Date: 02/19/2023 ??4:16 PM Estvien He Jr.O. LAB MICROBIO LOGY - BLOOD ORDERABLES [facility] [address] [place] [address], [facility] in [address] [address] * HBs Antibody, Serum (02/17/2023 9:35 AM CDT) Pathologist [facility] HBs Antibody, S Negative 5:03 PM CDT [facility] Comment: ----REFERENCE VALUE---- Unvaccinated: Negative Vaccinated: Positive HBs Antibody, Quantitative, S <3.50 mIU/mL 02/17/2023 5:03 PM CDT [facility] Comment: ----REFERENCE VALUE---- <8.50: Negative 8.50-11.49: Indeterminate >=11.50: Positive Blood (Blood, Venous) 02/17/2023 9:35 AM CDT 02/17/2023 3:36 PM CDT aHseeb Menon Jr., D.O. LAB MICROBIO LOGY - BLOOD ORDERABLES Performing Organization Address [facility] Co de Phone Number [facility] [address] [place] [address], [facility] [place] [address] * Hepatitis B Surface Antigen (02/17/2023 9:35 AM CDT) [facility] HBs Antigen, S Nonreactive Nonreactive 02/17/2023 5:03 PM CDT [facility] Blood (Blood, Venous) 02/17/2023 9:35 AM CDT 02/17/2023 3:36 PM CDT Haseeb Menon Jr., D.O. LAB MICROBIO LOGY - BLOOD ORDERABLES Performing Organization Address [facility] Co de Phone Number [facility] [address] [place] [id number], [facility] [place] [address] [place] [address] * HBc Total Ab, Serum (02/17/2023 9:35 AM CDT) Pathologist [facility] HBc Total Ab, S Negative Negative 02/19/2023 10:09 AM CDT [facility] Blood (Blood, Venous) 02/17/2023 9:35 AM CDT 02/19/2023 8:50 AM CDT Haseeb Menon Jr., D.O. LAB MICROBIO LOGY - BLOOD ORDERABLES [facility] [address] [place] [address] [facility] [address] [place] [address] * HCV Ab Scrn w/Reflex to HCV PCR, Serum (02/17/2023 9:35 AM CDT) Pathologist [facility] HCV Ab Screen, S Negative Negative 02/18/20 3:35 PM CDT [facility] Comment: Biotin has been identified by the silk spooler as a potential interfering substance. Higher concentrations of biotin may be found in multivitamins, hair/nail supplements, and workout supplements. If the result does not match clinical observations, repeat testing after patient refrains from the use of supplements for at least 12 hours. Blood (Blood, Venous) 02/17/2023 9:35 AM CDT 02/17/2023 2:20 PM CDT Narrative [facility] - 02/17/2023 3:35 PM CDT Specimen Information: Specimen ID: [id number] Specimen Type: Blood Specimen Collection Start Date: 02/17/2023 ??9:35 AM Specimen Received Date: 02/17/2023 ??2:20 PM Specimen ID: [id number] Specimen Type: Blood Specimen Collection Start Date: 02/17/2023 ??9:35 AM Specimen Received Date: 02/17/2023 ??2:16 PM Haseeb Menon Jr., D.O. LAB MICROBIO LOGY - BLOOD ORDERABLES [facility] [address] [place] [address], [facility] [place] [address] [place] [address] * (ABNORMAL) Renal Function Panel (02/17/2023 9:35 AM CDT) Pathologist [facility] Potassium, P 4.4 3.6 - 5.2 mmol/L [...] AM CDT 02/17/2023 11:01 AM CDT Narrative [facility] - 02/17/2023 4:02 PM CDT Specimen Information: Specimen ID: [id number] Specimen Type: Blood Specimen Collection Start Date: 02/17/2023 ??9:35 AM Specimen Received Date: 02/17/2023 11:01 AM Specimen ID: [id number] Specimen Type: Blood Specimen Collection Start Date: 02/17/2023 ??9:35 AM Specimen Received Date: 02/17/2023 ??3:35 PM Haseeb Menon Jr., D.O. LAB BLOOD AD D-ON Performing Organization Address [facility] Co de Phone Number [facility] [address] [place] [address], [facility] [place] [address] [place] [address] [facility] [address] [place] [address] * (ABNORMAL) Iron and Total Iron-Binding Capacity [...] LAB BLOOD AD D-ON Performing Organization Address [facility] [[email or web address]] de Phone Number [facility] [address] [place] [address], [facility] - [facility] [address] [place] [address] * Ferritin (02/17/2023 9:35 AM CDT) Ferritin, S 385 31 - 409 mcg/L 02/17/2023 1:16 PM CDT [facility] Comment: Biotin has been identified by the silk spooler as a potential interfering substance. Higher concentrations of biotin may be found in multivitamins, hair/nail supplements, and workout supplements. If the result does not match clinical observations, repeat testing after patient refrains from the use of supplements for at least 12 hours. Blood (Blood, Venous) 02/17/2023 9:35 AM CDT 02/17/2023 11:01 AM CDT Haseeb Menon Jr., D.O. LAB BLOOD AD D-ON [facility] [address] [place] [address], [facility] in [place] [address] [place] [address] * (ABNORMAL) CBC with Differential, Blood (02/17/2023 [...] LAB BLOOD AD D-ON Performing Organization Address City/State/[facility] Co de Phone Number [facility] [address] [place] [address], [facility] FB60 [facility] in [place] [address] [place] [address] documented in this encounter Visit Diagnoses Diagnosis 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 (HCC) 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) Anemia Of Chronic Renal Disease documented in this encounter Additional Health Concerns Assessment Noted Time PHQ-9 Depression Total Score: 3 01/04/20 18 10:38 AM CDT documented as of this encounter Care Teams Tire Assembler Relationship Specialty Start Date End Date Elsewhere, Pcp PCP - General Family Medicine 01/29/20 documented as of this encounter
--- OUTSIDE RECORDS SUMMARY | 2023-06-13 11:02 | XMS_ITS | Encounter Summary ---
Author Name Unknown Organization [facility] Address [address] [place] [address] Care Team Providers Care Epic Stork Specialists Name Role Phone Elsewhere, Pcp Primary Care Provider Unavailabl e Encounter Details Date Type Department Care Team (Late st Contact Info) Description 02/16/2023 10:41 AM CDT Anesthesia Event [facility] MAIN OR [address] [place] [address] Uriel Lin M.D. [address] [place] [address] Anesthesia Record Procedure Summary Procedure Name Responsible [...] How often do you attend congregational or sabianist serv ices? Never 03/24/2021 Do [...] Answer Date Recorded PHQ-2 Score 0 10/20/2018 [facility] - Occupational Stress Questionnaire Answer Date [...] your living situation today? I have a [facility] place to live 10/26/2022 Education Answer Date Recorded What is the highest level of school you have completed or the highest degree you have received? 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 Pertinent components of the patient's history including current problem list, medical history, surgical history, family history, social history, medications and allergies were reviewed. Present illness and pre-op diagnosis were confirmed. The planned surgery / procedure was verified with the patient / legal guardian. 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 Risks/Benefits/Alternatives of Blood transfusion discussed with patient [...] Procedure Summary Date: 02/16/23 Room / Location: [address] / [facility] in [place], [place] Anesthesia Start: 1041 Anesthesia Stop: Procedure: [...] Hydration status: euvolemic Norman Franklin M.D., Ph.D. Enrollment Manager CA1 * Anesthesia Procedure Notes - Edward [...] fellow participated in the procedure, and the center consultant was present for the entire procedure. [...] fellow participated in the procedure, and the center consultant was present for the entire procedure. [...] documented as of this encounter Care Teams Epic Stork Specialists Relationship Specialty Start Date End Date Elsewhere, Pcp PCP - General Family Medicine 01/29/20 documented as of this encounter
--- OUTSIDE RECORDS SUMMARY | 2023-06-13 11:02 | XMS_ITS | Encounter Summary ---
Author Name Unknown Organization [facility] Address [address] [place] [address] Care Team Providers Care Wood Type Finisher Name Role Phone Elsewhere, Pcp Primary Care Provider Unavailabl e Encounter Details Date Type Department Care Team (Late st Contact Info) Description 02/16/2023 10:36 AM CDT - 02/16/2023 12:35 PM CDT Surgery [facility] MAIN OR [address] [place] [address] Tee Celeste M.D., Ph.D. [address] [place] [address] INSERTION Peritoneal DIALYSIS CATHETER Social History Tobacco [...] How often do you attend synagogue or yazidi serv ices? Never 03/24/2021 Do [...] 0 10/20/2018 [facility] - Occupational Stress Questionnaire Answer Date [...] your living situation today? I have a [facility] place to live 10/26/2022 Education Answer Date Recorded What is the highest level of school you have completed or the highest degree you have received? 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 0 01/14/2022 nortriptyline (PAMELOR) 50 mg capsule [...] Filtration Rate Less Than 15 (HCC) A it administrative assistant actively participated and was necessary for [...] Performing Organization Address City/[facility] Co de Phone Number POC [facility] [address] [place] [address], [facility] PCDE [facility] [address] [place] [address] * (ABNORMAL) Glucose, POCT (02/16/2023 3:15 PM CDT) [facility] Glucose, POCT, B 191(H) 70 - 140 mg/dL 02/16/2023 3:17 PM CDT PCDE Site Capillary 02/16/2023 3:17 PM CDT PCDE Blood 02/16/2023 3:15 PM CDT 02/16/2023 3:17 PM CDT Unknown Provider LAB POCT ORDERABLES- MANUAL Performing Organization Address City/[facility] Co de Phone Number POC [facility] [address] [place] [address], [facility] PCDE [facility] POC [address] [place] [address] * DX Abdomen Portable Anterior Posterior 1 [...] Glucose, POCT (02/16/2023 2:15 PM CDT) Pathologist [facility] Glucose, POCT, B 173(H) 70 - 140 mg/dL 02/16/2023 2:17 PM CDT PCDE Site Capillary 02/16/2023 2:17 PM CDT PCDE Blood 02/16/2023 2:15 PM CDT 02/16/2023 2:17 PM CDT Unknown Provider LAB POCT ORDERABLES- MANUAL Performing Organization Address City/[facility]/ZIP Co de Phone Number POC [facility] [address] PCDE [facility]OC [address] [place] [address] * (ABNORMAL) Phosphorus Inorganic (02/16/2023 1:04 PM CDT) [facility] Phosphorus (Inorganic), S 6.2(H) 2.5 - 4.5 mg/dL 02/16/2023 1:58 PM CDT DTL Blood (Blood, Venous) 02/16/2023 1:04 PM CDT 02/16/2023 1:41 PM CDT Uriel Lin M.D. LAB BLOOD ADD-ON Performing Organization Address City/[facility]/ZIP Co de Phone Number [facility] [address] [place] [address], [facility] [address] [place] [address] * (ABNORMAL) CBC without Differential (02/16/2023 1:04 PM CDT) [facility] Hemoglobin 8.7(L) 13.2 - 16.6 g/dL 02/16/2023 [...] CDT Uriel Lin M.D. LAB BLOOD ADD-ON [facility] [address] [place] [address], [facility] METH [facility] [address] [place] [address] * (ABNORMAL) Basic Metabolic Panel (02/16/2023 1:04 [...] CDT Uriel Lin M.D. LAB BLOOD ADD-ON [facility] [address] [place] [address], [facility] METH [facility] [address] [place] [address] * Glucose, POCT (02/16/2023 12:04 PM CDT) Glucose, POCT, B 108 70 - 140 mg/dL 02/16/2023 12:07 PM CDT PCDE Site Capillary 02/16/2023 12:07 PM CDT PCDE Blood 02/16/2023 12:0 4 PM CDT 02/16/2023 12:07 PM CDT Unknown Provider LAB POCT ORDERABLES- MANUAL [facility] [address] [place] [address], [facility] PC[facility] [address] [place] [address] * Glucose, POCT (02/16/2023 10:23 AM CDT) Glucose, POCT, B 112 70 - 140 mg/dL 02/16/2023 10:33 AM CDT PCDE Site Capillary 02/16/2023 10:33 AM CDT PCDE Blood 02/16/2023 10:2 3 AM CDT 02/16/2023 10:33 AM CDT Unknown Provider LAB POCT ORDERABLES- MANUAL [facility] [address] [place] [address], [facility] PC[facility] [address] [place] [address] * Glucose, POCT (02/16/2023 8:23 AM CDT) Glucose, POCT, B 106 70 - 140 mg/dL 02/16/2023 8:24 AM CDT PCDE Blood 02/16/2023 8:23 AM CDT 02/16/2023 8:25 AM CDT Unknown Provider LAB POCT ORDERABLES- MANUAL Performing Organization Address City/[facility] Co de Phone Number POC [facility] [address] [place] [address], [facility] PC[facility] [address] [place] [address] documented in this encounter Visit Diagnoses Diagnosis [...] 1114 (Given - Provid er: Glenn Sarabia, PRINCIPAL JAVA DEVELOPER, MOVIE STUNT PERFORMER) insulin aspart U-100 injection 2 Units (NovoLOG [...] as of this encounter Care Teams Wood Type Finisher Relationship Specialty Start Date End Date Elsewhere, Pcp PCP - General Family Medicine 01/29/20 documented as of this encounter
--- OUTSIDE RECORDS SUMMARY | 2023-06-13 11:02 | XMS_ITS | Encounter Summary ---
Author Name Unknown Organization [facility] Address [address] [place] [address] Care Team Providers Care Contract Lead Name Role Phone Elsewhere, Pcp Primary Care Provider Unavailabl e Encounter Details Date Type Department Care Team (Late st Contact Info) Description 02/08/2023 Orders Only Division of Nephrology and Hypertension in [place], [place] [address] [place] [address] Haseeb Menon Jr., D.O. [address] [place] [address] Diabetes Mellitus Type 2 With Other Circulatory [...] How often do you attend yazdanism or jew serv ices? Never 03/24/2021 Do [...] your living situation today? I have a [facility] place to live 10/26/2022 Education Answer Date Recorded What is the highest level of school you have completed or the highest degree you have received? 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/2021 8:13 PM SPECIAL NEEDS NANNY Gender Identity Male 08/31/2019 2:40 PM CDT Sexual Orientation Straight 08/31/2019 2: 40 PM CDT documented as of this encounter Plan of Treatment Not on file documented as of this encounter Results * HCV Ab Scrn w/Reflex to HCV PCR, Serum (02/14/2023 11:09 AM CDT) HCV Ab Screen, S Negative Negative 02/15/20 3:29 PM CDT MKTO Comment: Biotin has been identified by the machine operator helper as a potential interfering substance. Higher concentrations of biotin may be found in multivitamins, hair/nail supplements, and workout supplements. If the result does not match clinical observations, repeat testing after patient refrains from the use of supplements for at least 12 hours. Blood (Blood, Venous) 02/14/2023 11:09 AM CDT 02/14/2023 3:29 PM CDT Narrative [facility] - 02/14/2023 3:29 PM CDT Specimen Information: Specimen ID: [id number] Specimen Type: Blood Specimen Collection Start Date: 02/14/2023 11:09 AM Specimen Received Date: 02/14/2023 ??3:29 PM Specimen ID: [id number] Specimen Type: Blood Specimen Collection Start Date: 02/14/2023 11:09 AM Specimen Received Date: 02/14/2023 ??2:48 PM Haseeb Mneon Jr., D.O. LAB MICROBIO LOGY - BLOOD ORDERABLES Performing Organization Address City/[facility]/[place] [address], [facility] [place] [address] [place] [address] * HBc Total Ab, Serum (02/14/2023 11:09 AM CDT) Pathologist [facility] HBc Total Ab, S Negative Negative 02/15/2023 9:08 AM CDT [facility] Blood (Blood, Venous) 02/14/2023 11:09 AM CDT 02/15/2023 6:57 AM CDT Haseeb Menon Jr., D.O. LAB MICROBIO LOGY - BLOOD ORDERABLES [facility] [address] [place] [address] [facility] [address] [place] [address] * HBs Antibody, Serum (02/14/2023 11:09 AM CDT) Pathologist [facility] HBs Antibody, S Negative 4:34 PM CDT [facility] Comment: ----REFERENCE VALUE---- Unvaccinated: Negative Vaccinated: Positive HBs Antibody, Quantitative, S <3.50 mIU/mL 02/14/2023 4:34 PM CDT [facility] Comment: ----REFERENCE VALUE---- <8.50: Negative 8.50-11.49: Indeterminate >=11.50: Positive Blood (Blood, Venous) 02/14/2023 11:09 AM CDT 02/14/2023 3:28 PM CDT Haseeb Menon Jr., D.O. LAB MICROBIO LOGY - BLOOD ORDERABLES Performing Organization Address [facility]/ZIP Co de Phone Number [facility] [address] [place] [address], [facility] [place] [address] * Hepatitis B Surface Antigen (02/14/2023 11:09 AM CDT) Pathologist [facility] HBs Antigen, S Nonreactive Nonreactive 02/14/2023 4:34 PM CDT [facility] Blood (Blood, Venous) 02/14/2023 11:09 AM CDT 02/14/2023 3:28 PM CDT Haseeb Menon Jr., D.O. LAB MICROBIO LOGY - BLOOD ORDERABLES Performing Organization Address [facility] Co de Phone Number [facility] [address] [place] [address], [facility] [place] [address] * QuantiFERON-Tb Gold Plus, Blood (02/14/2023 11:09 AM CDT) Pathologist [facility] QuantiFERON-TB Gold Plus Result Negative Negative [...] 11:09 AM CDT 02/16/2023 11:08 AM CDT [facility] - 02/17/2023 12:53 PM CDT Specimen Information: Specimen ID: [id number] Specimen Type: Blood Specimen Collection Start Date: 02/14/2023 11:09 AM Specimen Received Date: 02/16/2023 11:08 AM Specimen ID: [id number] Specimen Type: Blood Specimen Collection Start Date: 02/14/2023 11:09 AM Specimen Received Date: 02/16/2023 11:08 AM Specimen ID: [id number] Specimen Type: Blood Specimen Collection Start Date: 02/14/2023 11:09 AM Specimen Received Date: 02/16/2023 11:08 AM Specimen ID: [id number] Specimen Type: Blood Specimen Collection Start Date: 02/14/2023 11:09 AM Specimen Received Date: 02/16/2023 11:08 AM Estiven He Jr.O. LAB MICROBIO LOGY - BLOOD ORDERABLES [facility] [address] [place] [address], [facility] in [address] [address] documented in this encounter Visit Diagnoses Diagnosis [...] documented as of this encounter Care Teams Contract Lead Relationship Specialty Start Date End Date Elsewhere, Pcp PCP - General Family Medicine 01/29/20 documented as of this encounter
--- OUTSIDE RECORDS SUMMARY | 2023-06-13 11:02 | XMS_ITS | Encounter Summary ---
Author Name Unknown Organization [facility] Address [address] [place] [address] Care Team Providers Care Social Work Administrator Name Role Phone Elsewhere, Pcp Primary Care Provider Unavailabl e Encounter Details Date Type Department Care Team (Latest Contact Info) Description 02/16/2023 7:12 AM CDT - 02/16/2023 6:10 PM CDT Hospital Encounter Outpatient Surgery Unit in [place], [place] [address] [place] [address] Tee Celeste M.D., Ph.D. [address] [place] [phone] Discharge Disposition: Home or Self Care Social [...] How often do you attend rastafarian or denominational serv ices? Never 03/24/2021 Do [...] your living situation today? I have a [facility] place to live 10/26/2022 Education Answer Date Recorded What is the highest level of school you have completed or the highest degree you have received? 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/2021 8:13 PM SQUAD SERGEANT Gender Identity Male 08/31/2019 2:40 PM CDT [...] TAKE ONE CAPSULE BY MOUTH EVERY DAY GENETIC COUNSELLOR 0 01/14/2022 nortriptyline (PAMELOR) 50 mg capsule [...] Filtration Rate Less Than 15 (HCC) A senior assistant manager actively participated and was necessary for one [...] LAB POCT ORDERABLES- MANUAL Performing Organization Address City/[facility]/ZIP Co de Phone Number POC [facility] [address] [place], [place] [address] PCDE [facility] POC [address] [place] [address] * (ABNORMAL) Glucose, POCT (02/16/2023 3:15 PM CDT) Glucose, POCT, B 191(H) 70 - 140 mg/dL 02/16/2023 3:17 PM CDT PCDE Site Capillary 02/16/2023 3:17 PM CDT PCDE Blood 02/16/2023 3:15 PM CDT 02/16/2023 3:17 PM CDT Unknown Provider LAB POCT ORDERABLES- MANUAL Performing Organization Address City/[facility] Co de Phone Number POC [facility] [address] [place] [address], [facility] PCDE [facility] POC [address] [place] [address] * DX Abdomen Portable Anterior Posterior 1 [...] Glucose, POCT (02/16/2023 2:15 PM CDT) Pathologist [facility] Glucose, POCT, B 173(H) 70 - 140 mg/dL 02/16/2023 2:17 PM CDT PCDE Site Capillary 02/16/2023 2:17 PM CDT PCDE Blood 02/16/2023 2:15 PM CDT 02/16/2023 2:17 PM CDT Unknown Provider LAB POCT ORDERABLES- MANUAL Performing Organization Address City/[facility]/ZIP Co de Phone Number POC [facility] [address] [place] [address], [facility] PCDE [facility] POC [address] [place] [address] * (ABNORMAL) Phosphorus Inorganic (02/16/2023 1:04 PM CDT) [facility] Phosphorus (Inorganic), S 6.2(H) 2.5 - 4.5 mg/dL 02/16/2023 1:58 PM CDT DTL Blood (Blood, Venous) 02/16/2023 1:04 PM CDT 02/16/2023 1:41 PM CDT Uriel Lin M.D. LAB BLOOD ADD-ON [facility] [address] [place] [address], [facility] DTL [facility] [address] [place] [address] * (ABNORMAL) CBC without Differential (02/16/2023 1:04 PM CDT) Pathologist [facility] Hemoglobin 8.7(L) 13.2 - 16.6 g/dL 02/16/2023 [...] CDT Uriel Lin M.D. LAB BLOOD ADD-ON [facility] [address] [address], [facility] METH [facility] [address] [place] [address] * (ABNORMAL) Basic Metabolic Panel (02/16/2023 1:04 PM CDT) [facility] Potassium, P 3.6 3.6 - 5.2 mmol/L [...] M.D. LAB BLOOD ADD-ON Performing Organization Address City/[facility]/ZIP Co de Phone Number [facility] [address] [place] [address], [facility] METH [facility] [address] [place] [address] * Glucose, POCT (02/16/2023 12:04 PM CDT) Glucose, POCT, B 108 70 - 140 mg/dL 02/16/2023 12:07 PM CDT PCDE Site Capillary 02/16/2023 12:07 PM CDT PCDE Blood 02/16/2023 12:0 4 PM CDT 02/16/2023 12:07 PM CDT Unknown Provider LAB POCT ORDERABLES- MANUAL [facility] [address] [place] [address], [facility] PCDE [facility] POC [address] [place] [address] * Glucose, POCT (02/16/2023 10:23 AM CDT) Glucose, POCT, B 112 70 - 140 mg/dL 02/16/2023 10:33 AM CDT PCDE Site Capillary 02/16/2023 10:33 AM CDT PCDE Blood 02/16/2023 10:2 3 AM CDT 02/16/2023 10:33 AM CDT Unknown Provider LAB POCT ORDERABLES- MANUAL [facility] [address] [place] [address], [facility] PCDE [facility] POC [address] [place] [address] * Glucose, POCT (02/16/2023 8:23 AM CDT) [facility] Signature Glucose, POCT, B 106 70 - 140 mg/dL 02/16/2023 8:24 AM CDT PCDE Blood 02/16/2023 8:23 AM CDT 02/16/2023 8:25 AM CDT Unknown Provider LAB POCT ORDERABLES- MANUAL Performing Organization Address City/[facility] Co de Phone Number POC [facility] [address] [place] [address], [facility] PCDE [facility] POC [address] [place] [address] documented in this encounter Visit Diagnoses Diagnosis [...] (Given - Provid er: Glenn Sarabia APRN, MOLD CARPENTER) insulin aspart U-100 injection 2 Units (NovoLOG [...] of this encounter Care Teams Social Work Administrator Relationship Specialty Start Date End Date Elsewhere, Pcp PCP - General Family Medicine 01/29/20 documented as of this encounter
--- OUTSIDE RECORDS SUMMARY | 2023-06-13 11:02 | XMS_ITS | Encounter Summary ---
Author Name Unknown Organization [facility] Address [address] [place] [address] Care Team Providers Care Marketing Planning Manager Name Role Phone Elsewhere, Pcp Primary Care Provider Unavailabl e Encounter Details Date Type Department Care Team (Late st Contact Info) Description 02/16/2023 Orders Only Division of Endocrinology in [place], [place] [address] [place] [phone] Martina Da Silva, JULIÁN, C.N.P. [address] [place] [address] Social History Tobacco Use Types Packs/Day Years [...] week 03/24/2021 How often do you attend holiness or hindu serv ices? Never 03/24/2021 Do you belong to any clubs o r organizations such as holiness groups, unions, fraternal or athletic groups, or [...] your living situation today? I have a [facility] place to live 10/26/2022 Education Answer Date Recorded What is the highest level of school you have completed or the highest degree you have received? 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/2021 8:13 PM PRINT DEVELOPER AUTOMATIC Gender Identity Male 08/31/2019 2:40 PM CDT Sexual Orientation Straight 08/31/2019 2: 40 PM CDT documented as of this encounter Plan of Treatment Not on file documented as of this encounter Visit Diagnoses Not on filedocumented in this encounter Additional Health Concerns Assessment Noted Time PHQ-9 Depression Total Score: 3 01/04/20 18 10:38 AM CDT documented as of this encounter Care Teams Marketing Planning Manager Relationship Specialty Start Date End Date Elsewhere, Pcp PCP - General Family Medicine 01/29/20 documented as of this encounter
--- OUTSIDE RECORDS SUMMARY | 2023-06-13 11:03 | XMS_ITS | Encounter Summary ---
Author Name Unknown Organization [facility] Address [address] [place] [address] Care Team Providers Care Power Plant Manager Name Role Phone Elsewhere, Pcp Primary [...] 2 Views Haseeb Menon Jr., D.O. 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 [address] [place] [address] 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 [...] How often do you attend confucianist or episcopalian serv ices? Never 03/24/2021 Do [...] Date Recorded PHQ-2 Score 0 10/20/2018 [facility] - Occupational [...] Sex Assigned at Male 03/24/2021 8:13 PM HYDROELECTRIC PLANT MECHANICAL ENGINEER Gender Identity Male 08/31/2019 2:40 PM [...] TAKE ONE CAPSULE BY MOUTH EVERY DAY FIREFIGHTING EQUIPMENT SPECIALIST 0 01/14/2022 nortriptyline (PAMELOR) 50 mg capsule [...] documented as of this encounter Care Teams Power Plant Manager Relationship Specialty Start Date End Date Elsewhere, Pcp PCP - General Family Medicine 01/29/20 documented as of this encounter
--- OUTSIDE RECORDS SUMMARY | 2023-06-13 11:03 | XMS_ITS | Encounter Summary ---
Author Name Unknown Organization [facility] Address [address] [place] [address] Care Team Providers Care Canvas Worker Apprentice Name Role Phone Elsewhere, Pcp Primary Care [...] 2 Views Haseeb Menon Jr., D.O. 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 [address] [place] [address] [facility] Region Referral ID Status Reason Start Date Expiration Date V isits Requested Visits Authorized [id number] Authorized 01/18/2023 01/18/2024 1 1 Reason for Visit * Appointment Request (Routine) - Closed Specialty Diagnoses / Procedures Referred By Robi hong Referred To Contact Nephrology and Hypertension Referral ID Status Reason Start Date Expiration Date Visits Re quested Visits Authorized [id number] Closed 01/06/2023 01/06/2024 1 1 Encounter Details Date Type Department Care Team (Latest Contact Info) Description 01/18/2023 10:00 AM CDT External Outreach Division of Nephrology and Hypertension in [place], [place] [address] [place] [address] Haseeb Menon Jr., D.O. [address] [place] [address] 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 [...] How often do you attend anabaptism or amish serv ices? Never 03/24/2021 Do [...] Answer Date Recorded PHQ-2 Score 0 10/20/2018 [facility] [place] of Occupat ional Health - Occupational Stress [...] your living situation today? I have a [facility] place to live 10/26/2022 Education Answer Date Recorded What is the highest level of school you have completed or the highest degree you have received? 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/2021 8:13 PM CONCIERGE RECEPTIONIST Gender Identity Male 08/31/2019 2:40 PM CDT [...] Provider: ELSEWHERE, PCP SUBJECTIVE REASON FOR VISIT [facility] Follow-up regards CKD [...] note his hemoglobin was 8.6 checked in [place] on the December. When he appeared for [...] TAKE ONE CAPSULE BY MOUTH EVERY DAY FOREIGN AGENT, Disp: , Rfl: nortriptyline (PAMELOR) 50 mg [...] and CONNER approach 7. Coordinate care with [facility] dialysis team-e-mail sent #2 Diabetes Mellitus Type [...] Gold Plus, Blood (02/17/2023 9:35 AM CDT) [facility] QuantiFERON-TB Gold Plus Result Negative Negative 02/21/2023 [...] AM CDT 02/19/2023 4:15 PM CDT Narrative [facility] - 02/21/2023 12:00 PM CDT Specimen Information: Specimen ID: [id number] Specimen Type: Blood Specimen Collection Start Date: 02/17/2023 ??9:35 AM Specimen Received Date: 02/19/2023 ??4:15 PM Specimen ID: [id number] Specimen Type: Blood Specimen Collection Start Date: 02/17/2023 ??9:35 AM Specimen Received Date: 02/19/2023 ??4:15 PM Specimen ID: [id number] Specimen Type: Blood Specimen Collection Start Date: 02/17/2023 ??9:35 AM Specimen Received Date: 02/19/2023 ??4:15 PM Specimen ID: [id number] Specimen Type: Blood Specimen Collection Start Date: 02/17/2023 ??9:35 AM Specimen Received Date: 02/19/2023 ??4:16 PM Haseeb Menon Jr., D.O. LAB MICROBIO LOGY - BLOOD ORDERABLES [facility] [address] [place] [address], [place] [address] * HBs Antibody, Serum (02/17/2023 9:35 AM CDT) [facility] HBs Antibody, S Negative 5:03 PM CDT [facility] Comment: ----REFERENCE VALUE---- Unvaccinated: Negative Vaccinated: Positive HBs Antibody, Quantitative, S <3.50 mIU/mL 02/17/2023 5:03 PM CDT [facility] Comment: ----REFERENCE VALUE---- <8.50: Negative 8.50-11.49: Indeterminate >=11.50: Positive Blood (Blood, Venous) 02/17/2023 9:35 AM CDT 02/17/2023 3:36 PM CDT Haseeb Menon Jr., D.O. LAB MICROBIO LOGY - BLOOD ORDERABLES Performing Organization Address [facility] Co de Phone Number [id number] [place] [address] - [address] [address] * Hepatitis B Surface Antigen (02/17/2023 9:35 AM CDT) HBs Antigen, S Nonreactive Nonreactive 02/17/2023 5:03 PM CDT [facility] Blood (Blood, Venous) 02/17/2023 9:35 AM CDT 02/17/2023 3:36 PM CDT Haseeb Menon Jr., D.O. LAB MICROBIO LOGY - BLOOD ORDERABLES Performing Organization Address [facility] Co de Phone Number [facility] [address] [place] [address], [address] [address] * HBc Total Ab, Serum (02/17/2023 9:35 AM CDT) HBc Total Ab, S Negative Negative 02/19/2023 10:09 AM CDT [facility] Blood (Blood, Venous) 02/17/2023 9:35 AM CDT 02/19/2023 8:50 AM CDT Haseeb Menon Jr., D.O. LAB MICROBIO LOGY - BLOOD ORDERABLES Performing Organization Address City/[facility]/ZIP Co de Phone Number [facility] [address] [address] [facility] [address] [place] [address] * HCV Ab Scrn w/Reflex to HCV PCR, Serum (02/17/2023 9:35 AM CDT) HCV Ab Screen, S Negative Negative 02/18/20 3:35 PM CDT [facility] Comment: Biotin has been identified by the equip maint eng as a potential interfering substance. Higher concentrations of biotin may be found in multivitamins, hair/nail supplements, and workout supplements. If the result does not match clinical observations, repeat testing after patient refrains from the use of supplements for at least 12 hours. Blood (Blood, Venous) 02/17/2023 9:35 AM CDT 02/17/2023 2:20 PM CDT Narrative [facility] - 02/17/2023 3:35 PM CDT Specimen Information: Specimen ID: [id number] Specimen Type: Blood Specimen Collection Start Date: 02/17/2023 ??9:35 AM Specimen Received Date: 02/17/2023 ??2:20 PM Specimen ID: [id number] Specimen Type: Blood Specimen Collection Start Date: 02/17/2023 ??9:35 AM Specimen Received Date: 02/17/2023 ??2:16 PM Haseeb Menon Jr., D.O. LAB MICROBIO LOGY - BLOOD ORDERABLES [facility] [address] [place] [address], [facility] [place] [address] * (ABNORMAL) Renal Function Panel (02/17/2023 9:35 [...] AM CDT 02/17/2023 11:01 AM CDT Narrative [facility] - 02/17/2023 4:02 PM CDT Specimen Information: Specimen ID: [id number] Specimen Type: Blood Specimen Collection Start Date: 02/17/2023 ??9:35 AM Specimen Received Date: 02/17/2023 11:01 AM Specimen ID: [id number] Specimen Type: Blood Specimen Collection Start Date: 02/17/2023 ??9:35 AM Specimen Received Date: 02/17/2023 ??3:35 PM Haseeb Menon Jr., D.O. LAB BLOOD AD D-ON [facility] [address] [place] [address], [facility] OWAT [employer] in [place] [address] [place] [address] A[place] [facility] - [employer] [address] [place] [address] * (ABNORMAL) Iron and Total Iron-Binding Capacity [...] LAB BLOOD AD D-ON Performing Organization Address City/[facility]/ZIP Co de Phone Number [facility] [address] [place] [address], [facility] AUS [facility] [employer] [address] [place] [address] * Ferritin (02/17/2023 9:35 AM CDT) Ferritin, S 385 31 - 409 mcg/L 02/17/2023 1:16 PM CDT OWAT Comment: Biotin has been identified by the equip maint eng as a potential interfering substance. Higher concentrations of biotin may be found in multivitamins, hair/nail supplements, and workout supplements. If the result does not match clinical observations, repeat testing after patient refrains from the use of supplements for at least 12 hours. Blood (Blood, Venous) 02/17/2023 9:35 AM CDT 02/17/2023 11:01 AM CDT Haseeb Menon Jr., D.O. LAB BLOOD AD D-ON [facility] [address] [place] [address], [place] OW[place] [employer] in [place] [address] [place] [address] * (ABNORMAL) CBC with Differential, Blood (02/17/2023 9:35 AM CDT) Pathologist [facility] Hemoglobin 8.5(L) 13.2 - 16.6 g/dL 02/17/2023 [...] Menon Jr. DFeiO. LAB BLOOD AD D-ON [facility] [address] [place] [address], [facility] FB60 [employer] in [place] [address] [place] [address] * (ABNORMAL) Albumin, Random, Urine (02/17/2023 9:26 AM CDT) Microalbumin 895.0 mg/L 02/17/2023 1:53 PM CDT OWAT Creatinine 42 mg/dL 02/17/2023 12:50 PM CDT OWAT Albumin/Creatinin e Ratio 2131(H) <17 mg/g 02/17/2023 1:53 PM CDT OWAT Urine (Urine, Voided) 02/17/2023 9:26 AM CDT 02/17/2023 11:00 AM CDT Haseeb Menon Jr., D.O. LAB URINE OR DERABLES [facility] [address] [place] [address], [place] OWAT [facility] in [place] [address] [place] [address] * (ABNORMAL) Urinalysis with Microscopic: Urine, Voided [...] 8.0 02/17/2023 10:03 AM CDT FB60 Specific [place] 1.015 1.001 - 1.035 02/17/2023 10:03 AM [...] URINE OR DERABLES Performing Organization Address City/State/[facility] Co de Phone Number [facility] [address] [place] [address], [facility] [address] [employer] in [place] [address] [place] [address] documented in this encounter Visit Diagnoses Diagnosis [...] documented as of this encounter Care Teams Canvas Worker Apprentice Relationship Specialty Start Date End Date Elsewhere, Pcp PCP - General Family Medicine 01/29/20 documented as of this encounter
--- OUTSIDE RECORDS SUMMARY | 2023-06-13 11:03 | XMS_ITS | Encounter Summary ---
Author Name Unknown Organization [facility] Address [address] [place] [address] Care Team Providers Care Laboratory Equipment Cleaner Name Role Phone Elsewhere, Pcp Primary Care Provider Unavailabl e Encounter Details Date Type Department Care Team (Latest Contact Info) Description 11/17/2022 10:28 AM CDT - 11/17/2022 11:17 AM CDT Hospital Encounter Department of Laboratory Medicine and Pathology, [facility] in [place], [place] [address] [place] [address] Haseeb Menon Jr., D.O. [address] [place] [address] 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 [...] How often do you attend sikhism or episcopal serv ices? Never 03/24/2021 Do [...] Answer Date Recorded PHQ-2 Score 0 10/20/2018 [facility] of Occupat ional Health - Occupational Stress [...] living situation today? I have a [facility] place to live 10/26/2022 Education Answer Date Recorded What is the highest level of school you have completed or the highest degree you have received? 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/2021 8:13 PM FORECLOSURE PARALEGAL Gender Identity Male 08/31/2019 2:40 PM CDT [...] TAKE ONE CAPSULE BY MOUTH EVERY DAY PIPE WRAPPING MACHINE OPERATOR 0 01/14/2022 nortriptyline (PAMELOR) 50 [...] Antibody, Serum (11/17/2022 11:05 AM CDT) Pathologist [facility] HBs Antibody, S Negative 11/17/2022 9:12 PM CDT [facility] Comment: Patient is presumed to be not immune to infection with HBV. ----REFERENCE VALUE---- Unvaccinated: Negative Vaccinated: Positive HBs Antibody, Quantitative, S <5.0 mIU/mL 11/17/2022 9:12 PM CDT [facility] Comment: ----REFERENCE VALUE---- Unvaccinated: <5.0 Vaccinated: >=12.0 Blood (Blood, Venous) 11/17/2022 11:05 AM CDT 11/17/2022 4:58 PM CDT Haseeb Menon Jr., D.O. LAB MICROBIO LOGY - BLOOD ORDERABLES [facility] [address] [place] [address] [place] [address] * Hepatitis B Surface Antigen (11/17/2022 11:05 AM CDT) [facility] HBs Antigen, S Negative Negative 11/17/2022 8:51 PM CDT [facility] Blood (Blood, Venous) 11/17/2022 11:05 AM CDT 11/17/2022 2:53 PM CDT Haseeb Menon Jr., D.O. LAB MICROBIO LOGY - BLOOD ORDERABLES [facility] [address] [place] [address] [facility] [address] [place] [address] * HBc Total Ab, Serum (11/17/2022 11:05 AM CDT) [facility] HBc Total Ab, S Negative Negative 11/17/2022 9:12 PM CDT [facility] Blood (Blood, Venous) 11/17/2022 11:05 AM CDT 11/17/2022 4:58 PM CDT Haseeb Menon Jr., D.O. LAB MICROBIO LOGY - BLOOD ORDERABLES Performing Organization Address [facility] Co de Phone Number [place] [address] [place] [address] [place] [address] * HCV Ab Scrn w/Reflex to HCV PCR, Serum (11/17/2022 11:05 AM CDT) [facility] HCV Ab Screen, S Negative Negative 11/17/2022 9:09 PM CDT [facility] Comment:Yycpzm-or-mfaqep rat io is <1.00. Blood (Blood, Venous) 11/17/2022 11:05 AM CDT 11/17/2022 2:53 PM CDT Haseeb Menon Jr., D.O. LAB MICROBIO LOGY - BLOOD ORDERABLES Performing Organization Address [facility] de Phone Number [place] [address] [place] [address] [place] [address] * QuantiFERON-Tb Gold Plus, Blood (11/17/2022 11:04 AM CDT) [facility] QuantiFERON-TB Gold Plus Result Negative Negative 11/18/2022 10:55 AM CDT [facility] Comment: No interferon-gamma response to M. [...] Result 0.06 IU/mL 11/18/2022 10:55 AM CDT [facility] Blood (Blood, Venous) 11/17/2022 11:04 AM CDT 11/17/2022 1:50 PM CDT Narrative [facility] - 11/18/2022 10:55 AM CDT Specimen Information: Specimen ID: [id number] Specimen Type: Blood Specimen Collection Start Date: 11/17/2022 11:04 AM Specimen Received Date: 11/17/2022 ??1:50 PM Specimen ID: [id number] Specimen Type: Blood Specimen Collection Start Date: 11/17/2022 11:05 AM Specimen Received Date: 11/17/2022 ??1:50 PM Specimen ID: [id number] Specimen Type: Blood Specimen Collection Start Date: 11/17/2022 11:05 AM Specimen Received Date: 11/17/2022 ??1:50 PM Specimen ID: [id number] Specimen Type: Blood Specimen Collection Start Date: 11/17/2022 11:04 AM Specimen Received Date: 11/17/2022 ??1:50 PM Haseeb Menon Jr., D.O. LAB MICROBIO LOGY - BLOOD ORDERABLES [facility] [address] [address] [facility] [address] [place] [address] documented in this encounter Visit Diagnoses Diagnosis 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 (HCC) documented in this encounter Additional Health Concerns Assessment Noted Time PHQ-9 Depression Total Score: 3 01/04/20 18 10:38 AM CDT documented as of this encounter Care Teams Laboratory Equipment Cleaner Relationship Specialty Start Date End Date Elsewhere, Pcp PCP - General Family Medicine 01/29/20 documented as of this encounter
--- OUTSIDE RECORDS SUMMARY | 2023-06-13 11:03 | XMS_ITS | Encounter Summary ---
Author Name Unknown Organization [facility] Address [address] [place] [address] Care Team Providers Care Doctor Of Nurse Anesthesia Practice Name Role Phone Elsewhere, Pcp Primary Care Provider Unavailabl e Encounter Details Date Type Department Care Team (Latest Contact Info) Description 11/25/2022 1:41 PM CDT - 11/25/2022 11:59 PM CDT Hospital Encounter Department of Laboratory Medicine in [place], [place] [address] [place] [address] Haseeb Menon Jr., D.O. 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) IRON AND TOT IRON-BINDING CAPACITY, S/P Routine 11/25/2022 2:09 PM CDT 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 (HCC) 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) Anemia Of Chronic Renal Disease Acidosis Metabolic Hyperchloremic 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) CBC WITH DIFFERENTIAL, B Routine 11/25/2022 2:09 PM CDT 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 (HCC) 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) Anemia Of Chronic Renal Disease Acidosis Metabolic Hyperchloremic 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) HEMOGLOBIN A1C, B Routine 11/25/2022 2:0 9 PM CDT 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 (HCC) 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 LAB BLOOD AD D-ON [facility] [address] [place] [address], [place] OWAT [facility] [place] [facility] [place] [address] [place] [address] * (ABNORMAL) Renal Function Panel (11/25/2022 2:09 [...] PM CDT 11/25/2022 3:35 PM CDT Narrative [facility] - 11/25/2022 7:56 PM CDT Specimen Information: Specimen ID: [id number] Specimen Type: Blood Specimen Collection Start Date: 11/25/2022 ??2:09 PM Specimen Received Date: 11/25/2022 ??3:35 PM Specimen ID: [id number] Specimen Type: Blood Specimen Collection Start Date: 11/25/2022 ??2:09 PM Specimen Received Date: 11/25/2022 ??7:10 PM Haseeb Menon Jr., D.O. LAB BLOOD AD D-ON Performing Organization Address City/[facility] [address]/[facility] Co de Phone Number [facility] [place] [address], [facility] OWAT [facility] [address] [place] [address] [facility] [address] [place] [address] * (ABNORMAL) Iron and Total Iron-Binding Capacity [...] LAB BLOOD AD D-ON Performing Organization Address City/[facility] [address]/[facility] Co de Phone Number [facility] [address] [place] [address], [facility] in [place] [address] [place] [address] * Ferritin (11/25/2022 2:09 PM CDT) Ferritin, S 374 31 - 409 mcg/L 11/25/2022 5:12 PM CDT OW Comment: Biotin has been identified by the rail switchman as a potential interfering substance. Higher concentrations of biotin may be found in multivitamins, hair/nail supplements, and workout supplements. If the result does not match clinical observations, repeat testing after patient refrains from the use of supplements for at least 12 hours. Blood (Blood, Venous) 11/25/2022 2:09 PM CDT 11/25/2022 3:35 PM CDT Haseeb Menon Jr., D.O. LAB BLOOD AD D-ON [facility] [address] [place] [address], [facility] OWAT [facility] [place] [facility] [place] [address] [place] [address] * (ABNORMAL) CBC with Differential, Blood (11/25/2022 [...] Menon Jr., D.O. 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
--- OUTSIDE RECORDS SUMMARY | 2023-06-13 11:03 | XMS_ITS | Encounter Summary ---
Author Name Unknown Organization [facility] Address [address] [place] [address] Care Team Providers Care Manager Dairy Name Role Phone Elsewhere, Pcp Primary Care Provider Unavailabl e Reason for Visit * Reason Comments Med Refill Encounter Details Date Type Department Care Team (Late st Contact Info) Description 01/30/2023 Refill Division of Nephrology and Hypertension in [place], [place] [address] [place] [address] Farrah Barnes M.D., Ph.D. [address] [place] [address] Med Refill Social History Tobacco Use Types [...] How often do you attend sikhism or protestant serv ices? Never 03/24/2021 Do [...] 10/20/2018 [facility] of Occupat ional [facility] - Occupational Stress Questionnaire Answer Date [...] living situation today? I [facility] a [facility] place to [facility] 10/26/2022 Education Answer Date Recorded What is the highest level of school you have completed or the highest degree you have received? 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
--- OUTSIDE RECORDS SUMMARY | 2023-06-13 11:03 | XMS_ITS | Encounter Summary ---
Author Name Unknown Organization [facility] Address [address] [place] [address] Care Team Providers Care Finisher Merchant Products Name Role Phone Elsewhere, Pcp Primary Care Provider Unavailabl e Encounter Details Date Type Department Care Team (Latest Contact Info) Description 01/11/2023 8:19 AM CDT - 01/11/2023 11:59 PM CDT Hospital Encounter Department of Laboratory Medicine in [place], [place] [address] [place] [address] Haseeb Menon Jr., D.O. [address] [place] [phone] 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 (HCC); Diabetes Mellitus Type 2 With Diabetic Nephropathy (HCC); Hyperparathyroidism Secondary (HCC); Anemia Of Chronic Renal Disease; Acidosis Metabolic Hyperchloremic; Atherosclerosis Of [place] Arteries Of Extremities With [...] How often do you attend yarsani or methodist serv ices? Never 03/24/2021 Do [...] Date Recorded PHQ-2 Score 0 10/20/2018 [facility] of Occupat ional Health - Occupational Stress [...] your living situation today? I have a [facility] place to live 10/26/2022 Education Answer Date Recorded What is the highest level of school you have completed or the highest degree you have received? 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 - 01/11/2023 3:02 PM CDT Specimen Information: Specimen ID: [id number] Specimen Type: Blood Specimen Collection Start Date: 01/11/2023 ??8:30 AM Specimen Received Date: 01/11/2023 11:00 AM Specimen ID: [id number] Specimen Type: Blood Specimen Collection Start Date: 01/11/2023 ??8:30 AM Specimen Received Date: 01/11/2023 ??2:35 PM Haseeb Menon Jr., D.O. LAB BLOOD AD D-ON [facility] [address] [place] [address], [facility] [place] [address] [place] [address] [facility] [place] [address] [place] [address] * (ABNORMAL) CBC with Differential, Blood (01/11/2023 8:30 AM CDT) Pathologist [facility] Hemoglobin 8.6(L) 13.2 - 16.6 g/dL 01/11/2023 [...] Menon Jr. D.O. 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
--- OUTSIDE RECORDS SUMMARY | 2023-06-13 11:03 | XMS_ITS | Encounter Summary ---
Author Name Unknown Organization [facility] Address [address] [place] [address] Care Team Providers Care Hot Plate Plywood Press Offbearer Name Role Phone Elsewhere, Pcp Primary Care Provider Unavailabl e Encounter Details Date Type Department Care Team (Late st Contact Info) Description 02/08/2023 Documentation Division of Nephrology and Hypertension in [place], [place] [address] [place] [address] Haseeb Menon Jr., D.O. [address] [place] [address] Social History Tobacco Use Types Packs/Day Years [...] week 03/24/2021 How often do you attend methodist or orthodoxy serv ices? Never 03/24/2021 Do you belong to any clubs o r organizations such as methodist groups, unions, fraternal or athletic groups, or [...] Score 0 10/20/2018 [facility] - Occupational Stress Questionnaire Answer [...] your living situation today? I have a [facility] place to live 10/26/2022 Education Answer Date Recorded What is the highest level of school you have completed or the highest degree you have received? 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 - 02/08/2023 4:48 PM CDT [...] documented as of this encounter Care Teams Hot Plate Plywood Press Offbearer Relationship Specialty Start Date End Date Elsewhere, Pcp PCP - General Family Medicine 01/29/20 documented as of this encounter
--- OUTSIDE RECORDS SUMMARY | 2023-06-13 11:03 | XMS_ITS | Encounter Summary ---
Author Name Unknown Organization [facility] Address [address] [place] [address] Care Team Providers Care Custodial Officer Name Role Phone Elsewhere, Pcp Primary Care Provider Unavailabl e Reason for Visit * Appointment Request (Routine) - Closed Specialty Diagnoses / Procedures Referred By Robi t Referred To Contact Nephrology and Hypertension Referral ID Status Reason Start Date Expiration Date Visits Re quested Visits Authorized [id number] Closed 10/28/2022 10/28/2023 1 1 Encounter Details Date Type Department Care Team (Latest Contact Info) Description 11/23/2022 2:30 PM CDT External Outreach Division of Nephrology and Hypertension in [place], [place] [address] [place] [address] Haseeb Menon Jr., D.O. [address] [place] [address] 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 [...] How often do you attend quaker or evangelical serv ices? Never 03/24/2021 Do you belong [...] your living situation today? I have a [facility] place to live 10/26/2022 Education Answer Date Recorded What is the highest level of school you have completed or the highest degree you have received? 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 His hemoglobin at that time was 8.6, improved from 7.7 the month prior. His most recent set of iron levels on the 15 of October are acceptable. He would like to have his labs done in [place] we will make sure this is ordered. [...] TAKE ONE CAPSULE BY MOUTH EVERY DAY ALF, Disp: , Rfl: nortriptyline (PAMELOR) 50 mg [...] will get a set of chemistries in [place]. Going forward: 1. Continue GOLD regimen as [...] on sodium bicarb supplements #6 Atherosclerosis Of [place] Arteries Of Extremities With [...] 8:30 AM CDT 01/11/2023 11:00 AM CDT [facility] - 01/11/2023 3:02 PM CDT Specimen Information: Specimen ID: [id number] Specimen Type: Blood Specimen Collection Start Date: 01/11/2023 ??8:30 AM Specimen Received Date: 01/11/2023 11:00 AM Specimen ID: [id number] Specimen Type: Blood Specimen Collection Start Date: 01/11/2023 ??8:30 AM Specimen Received Date: 01/11/2023 ??2:35 PM Haseeb Menon Jr., D.O. LAB BLOOD AD D-ON [facility] [address] [place] [address], [facility] [place] [address] [place] [address] [facility] [address] [place] [address] * (ABNORMAL) CBC with Differential, Blood (01/11/2023 8:30 AM CDT) Pathologist [facility] Hemoglobin 8.6(L) 13.2 - 16.6 g/dL 01/11/2023 [...] LAB BLOOD AD D-ON Performing Organization Address City/[facility]/ZIP Co de Phone Number [facility] [address] [place] [address], [facility] FB60 [facility] in [place] [address] [place] [address] * (ABNORMAL) Hemoglobin A1c (11/25/2022 2:09 PM [...] Menon Jr., D.O. LAB BLOOD AD D-ON [facility] [address] [place] [address], [place] OWAT [facility] in [place] [address] [place] [address] * (ABNORMAL) Renal Function Panel (11/25/2022 2:09 PM CDT) [facility] Potassium, P 4.1 3.6 - 5.2 [...] PM CDT 11/25/2022 3:35 PM CDT Narrative [facility] - 11/25/2022 7:56 PM CDT Specimen Information: Specimen ID: [id number] Specimen Type: Blood Specimen Collection Start Date: 11/25/2022 ??2:09 PM Specimen Received Date: 11/25/2022 ??3:35 PM Specimen ID: [id number] Specimen Type: Blood Specimen Collection Start Date: 11/25/2022 ??2:09 PM Specimen Received Date: 11/25/2022 ??7:10 PM Haseeb Menon Jr., D.O. LAB BLOOD AD D-ON Performing Organization Address City/[facility] Co de Phone Number [facility] [address] [place] [address], [facility] OWAT [facility] [address] [place] [address] [facility] [address] [place] [address] * (ABNORMAL) Iron and Total Iron-Binding Capacity [...] LAB BLOOD AD D-ON Performing Organization Address [facility] Co de Phone Number [facility] [address] [place] [address], [facility] in [place] [address] [place] [address] * Ferritin (11/25/2022 2:09 PM CDT) Ferritin, S 374 31 - 409 mcg/L 11/25/2022 5:12 PM CDT OW Comment: Biotin has been identified by the diesel engine erector as a potential interfering substance. Higher concentrations of biotin may be found in multivitamins, hair/nail supplements, and workout supplements. If the result does not match clinical observations, repeat testing after patient refrains from the use of supplements for at least 12 hours. Blood (Blood, Venous) 11/25/2022 2:09 PM CDT 11/25/2022 3:35 PM CDT Haseeb Menon Jr., D.O. LAB BLOOD AD D-ON [facility] [address] [place] [address], [facility] OWAT [facility] [place] [address] [place] [address] * (ABNORMAL) CBC with Differential, Blood (11/25/2022 [...] Menon Jr., D.O. LAB BLOOD AD D-ON [facility] [address] [place] [address], [facility] OWAT [facility] [place] [address] [place] [address] documented in this encounter Visit Diagnoses Diagnosis [...] documented as of this encounter Care Teams Custodial Officer Relationship Specialty Start Date End Date Elsewhere, Pcp PCP - General Family Medicine 01/29/20 documented as of this encounter
--- OUTSIDE RECORDS SUMMARY | 2023-06-13 11:04 | XMS_ITS | Encounter Summary ---
Author Name Unknown Organization [facility] Address [address] [place] [address] Care Team Providers Care Ip Architect Name Role Phone Elsewhere, Pcp Primary Care Provider Unavailabl e Reason for Visit * Reason Onset Date Comments Txp Initial RN Phone Interview 09/21/2022 Encounter Details Date Type Department Care Team (Latest Contact Info) Description 09/21/2022 Clinical Communication [facility] [place], [place] [address] [place] [address] Regina Basurto R.N., C.C.T.C. [address] [place] [phone] Txp Initial RN Phone Interview Social History [...] Answer Date Recorded PHQ-2 Score 0 10/20/2018 [facility] of Occupat ional Health - Occupational Stress [...] or slept in a half-way (including now)? No 03/24/2021 Nutrition Answer Date [...] Sex Assigned at Male 03/24/2021 8:13 PM TUBE MOUNTER Gender Identity Male 08/31/2019 2:40 PM CDT [...] PAD and iliac stents. Stenting done at [facility] and images in eads. Hx of CVA [...] No Informed of COVID vaccine requirement: Yes Pressfitter Utilized: No Phone Screen Type: Kidney Completed [...] (Benefit check not needed for Medicare or [facility] Insurance) Do you know your GFR? Yes, [...] NA Pap: NA Cardiovascular History: HTN: Yes UT: No CVA/TIA: Yes mini stroke 15-20 years [...] Information for Kidney, Kidney/Pancreas, andPancreas Transplant Candidates [id number] was reviewed with the patient via telephone call. Confirmed Onesimo Walton's interest in pursuing a kidney transplant evaluation at [facility]. The patient verbalized understanding of the information [...] documented as of this encounter Care Teams Ip Architect Relationship Specialty Start Date End Date Elsewhere, Pcp PCP - General Family Medicine 01/29/20 documented as of this encounter
--- OUTSIDE RECORDS SUMMARY | 2023-06-13 11:04 | XMS_ITS | Encounter Summary ---
Author Name Unknown Organization [facility] Address [address] [place] [address] Care Team Providers Care Supervisor Wheel Shop Name Role Phone Elsewhere, Pcp Primary Care [...] 2 Views Haseeb Menon Jr., D.O. 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 [address] [place] [address] [facility] Referral ID Status Reason Start Date Expiration Date Visits Re quested Visits Authorized [id number] Closed 09/14/2022 09/14/2023 1 1 Encounter Details Date Type Department Care Team (Late st Contact Info) Description 09/14/2022 Orders Only Division of Nephrology and Hypertension in [place], [place] [address] [place] [address] Haseeb Menon Jr., D.O. [address] [place] [address] 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 [...] week 03/24/2021 How often do you attend worship or yazdanism serv ices? Never 03/24/2021 Do you belong to any clubs o r organizations such as worship groups, unions, fraternal or athletic groups, or [...] Answer Date Recorded PHQ-2 Score 0 10/20/2018 [facility] of Occupat ional Health - [...] Sex Assigned at Male 03/24/2021 8:13 PM SHADER AND TONER Gender Identity Male 08/31/2019 2:40 PM CDT [...] CDT) Ventricular Rate ECG/Min 83 BPM MUSE WV Interval 162 ms MUSE QRSD Interval 134 ms MUSE QT Interval 426 ms MUSE QTC Interval 500 ms MUSE P [place] 67 degrees MUSE R [place] -15 degrees MUSE T Wave [place] 14 degrees MUSE 11/17/2022 12:1 1 PM [...] as of this encounter Care Teams Supervisor Wheel Shop Relationship Specialty Start Date End Date Elsewhere, Pcp PCP - General Family Medicine 01/29/20 documented as of this encounter
--- OUTSIDE RECORDS SUMMARY | 2023-06-13 11:04 | XMS_ITS | Encounter Summary ---
Author Name Unknown Organization [facility] Address [address] [place] [address] Care Team Providers Care Seat Cover Maker Name Role Phone Elsewhere, Pcp Primary Care Provider Unavailabl e Encounter Details Date Type Department Care Team (Latest Contact Info) Description 09/06/2022 10:39 AM CDT - 09/06/2022 11:59 PM CDT Hospital Encounter Department of Laboratory Medicine in [place], [place] [address] [place] [address] Haseeb Menon Jr., D.O. 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 Never 03/24/2021 Do you belong [...] Assigned at Male 03/24/2021 8:13 PM ACCESS CONSULTANT Gender Identity Male 08/31/2019 2:40 PM CDT [...] TAKE ONE CAPSULE BY MOUTH EVERY DAY PRISON 0 01/14/2022 nortriptyline (PAMELOR) 50 mg capsule [...] Renal Disease Hyperparathyroidism Secondary (HCC) Atherosclerosis Of Pal[place] Arteries Of Left Leg With Ulceration Of Unspecified Site (HCC) Depression Major Recurrent Moderate (HCC) URINALYSIS WITH MICROSCOPIC Routine 09/06/2022 10:59 AM CDT 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 (HCC) Diabetes Mellitus Type 2 With Diabetic Nephropathy (HCC) Anemia Of Chronic Renal Disease 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 D.O. LAB URINE OR DERABLES [facility] [address] [facility] [place] [address], [facility] [address] [facility] [place] [address] [place] [address] * (ABNORMAL) Albumin, Random, Urine (09/06/2022 10:59 AM CDT) Microalbumin 1149.0 mg/L 09/06/2022 4:37 PM CDT OWAT Creatinine 22 mg/dL 09/06/2022 2:31 PM CDT OWAT Albumin/Creatinin e Ratio 5223(H) <17 mg/g 09/06/2022 4:37 PM CDT OWAT Urine (Urine, Voided) 09/06/2022 10:59 AM CDT 09/06/2022 1:39 PM CDT Haseeb Menon Jr., D.O. LAB URINE OR DERABLES Performing Organization Address City/State/[facility] Co de Phone Number [facility] [address] [place] [address], [facility] OWAT 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
--- OUTSIDE RECORDS SUMMARY | 2023-06-13 11:04 | XMS_ITS | Encounter Summary ---
Author Name Unknown Organization [facility] Address [address] [place] [address] Care Team Providers Care Polysilicon Preparation Worker Name Role Phone Elsewhere, Pcp Primary Care Provider Unavailabl e Encounter Details Date Type Department Care Team (Late st Contact Info) Description 10/28/2022 Orders Only Division of Nephrology and Hypertension in [place], [place] [address] [place] [address] Haseeb Menon Jr., D.O. [address] [place] [address] 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 [...] How often do you attend orthodoxy or jewish serv ices? Never 03/24/2021 Do you belong [...] Answer Date Recorded PHQ-2 Score 0 10/20/2018 [facility] of Occupat ional [facility] - Occupational Stress Questionnaire Answer Date Recorded [...] Sex Assigned at Male 03/24/2021 8:13 PM PALS NURSE Gender Identity Male 08/31/2019 2:40 PM CDT Sexual Orientation Straight 08/31/2019 2: 40 PM CDT documented as of this encounter Plan of Treatment Not on file documented as of this encounter Results * HBs Antibody, Serum (11/17/2022 11:05 AM CDT) [facility] [place] HBs Antibody, S Negative 11/17/2022 9:12 PM CDT [facility] Comment: Patient is presumed to be not immune to infection with HBV. ----REFERENCE VALUE---- Unvaccinated: Negative Vaccinated: Positive HBs Antibody, Quantitative, S <5.0 mIU/mL 11/17/2022 9:12 PM CDT [facility] Comment: ----REFERENCE VALUE---- Unvaccinated: <5.0 Vaccinated: >=12.0 Blood (Blood, Venous) 11/17/2022 11:05 AM CDT 11/17/2022 4:58 PM CDT Haseeb Menon Jr., D.O. LAB MICROBIO LOGY - BLOOD ORDERABLES [facility] [address] [place] [address] [facility] [address] [place] [address] * Hepatitis B Surface Antigen (11/17/2022 11:05 AM CDT) HBs Antigen, S Negative Negative 11/17/2022 8:51 PM CDT [facility] Blood (Blood, Venous) 11/17/2022 11:05 AM CDT 11/17/2022 2:53 PM CDT Haseeb Menon Jr., D.O. LAB MICROBIO LOGY - BLOOD ORDERABLES Performing Organization Address City/[facility]/ZIP Co de Phone Number [facility] [address] [place] [address] [facility] [address] [place] [address] * HBc Total Ab, Serum (11/17/2022 11:05 AM CDT) HBc Total Ab, S Negative Negative 11/17/2022 9:12 PM CDT [facility] Blood (Blood, Venous) 11/17/2022 11:05 AM CDT 11/17/2022 4:58 PM CDT Haseeb Menon Jr., D.O. LAB MICROBIO LOGY - BLOOD ORDERABLES [facility] [address] [place] [address] [facility] [address] [place] [address] * HCV Ab Scrn w/Reflex to HCV PCR, Serum (11/17/2022 11:05 AM CDT) HCV Ab Screen, S Negative Negative 11/17/2022 9:09 PM CDT [facility] Comment:[id number] rat io is <1.00. Blood (Blood, Venous) 11/17/2022 11:05 AM CDT 11/17/2022 2:53 PM CDT Haseeb Menon Jr., D.O. LAB MICROBIO LOGY - BLOOD ORDERABLES [facility] [address] [place] [address] [facility] [address] [place] [address] * QuantiFERON-Tb Gold Plus, Blood (11/17/2022 11:04 AM CDT) [facility] [place] QuantiFERON-TB Gold Plus Result Negative Negative 11/18/2022 10:55 AM CDT [facility] Comment: No interferon-gamma response to [...] Result 0.01 IU/mL 11/18/2022 10:55 AM CDT [facility] TB2 Ag minus Nil Result 0.02 IU/mL 11/18/2022 10:55 AM CDT [facility] Mitogen minus Nil Result 9.94 IU/mL 11/18/2022 10:55 AM CDT [facility] Nil Result 0.06 IU/mL 11/18/2022 10:55 AM CDT [facility] Blood (Blood, Venous) 11/17/2022 11:04 AM CDT 11/17/2022 1:50 PM CDT Narrative [facility] - 11/18/2022 10:55 AM CDT Specimen Information: Specimen ID: [id number] Specimen Type: Blood Specimen Collection Start Date: 11/17/2022 11:04 AM Specimen Received Date: 11/17/2022 ??1:50 PM Specimen ID: [id number] Specimen Type: Blood Specimen Collection Start Date: 11/17/2022 11:05 AM Specimen Received Date: 11/17/2022 ??1:50 PM Specimen ID: [id number] Specimen Type: Blood Specimen Collection Start Date: 11/17/2022 11:05 AM Specimen Received Date: 11/17/2022 ??1:50 PM Specimen ID: [id number] Specimen Type: Blood Specimen Collection Start Date: 11/17/2022 11:04 AM Specimen Received Date: 11/17/2022 ??1:50 PM Estiven He Jr.OFei LAB MICROBIO LOGY - BLOOD ORDERABLES [facility] [address] [place] [address] [facility] [address] [place] [address] documented in this encounter Visit Diagnoses Diagnosis 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 (HCC)- Primary 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 (HCC) documented in this encounter Additional Health Concerns Assessment Noted Time PHQ-9 Depression Total Score: 3 01/04/20 18 10:38 AM CDT documented as of this encounter Care Teams Polysilicon Preparation Worker Relationship Specialty Start Date End Date Elsewhere, Pcp PCP - General Family Medicine 01/29/20 documented as of this encounter
--- OUTSIDE RECORDS SUMMARY | 2023-06-13 11:04 | XMS_ITS | Encounter Summary ---
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 [address] [place] [address] 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 Referral ID Status Reason Start Date Expiration Date Visits Re quested Visits Authorized [id number] Closed 09/14/2022 09/14/2023 1 1 Encounter Details Date Type Department Care Team (Latest Contact Info) Description 11/01/2022 12:32 PM CDT - 11/01/2022 11:59 PM CDT Hospital Encounter Division of Nephrology and Hypertension, [facility], in [place], [place] [address] [place] [phone] Haseeb Menon Jr., D.O. [address] [place] [phone] Tee Celeste M.D., Ph.D. [address] [place] [phone] Hypertension And Chronic Kidney Disease Stage 4 [...] How often do you attend taoism or adventist serv ices? Never 03/24/2021 Do [...] Answer Date Recorded PHQ-2 Score 0 10/20/2018 [facility] of Occupat ional Health - [...] your living situation today? I have a [facility] place to live 10/26/2022 Education Answer Date Recorded What is the highest level of school you have completed or the highest degree you have received? 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/2021 8:13 PM INDEPENDENT FILM MAKER Gender Identity Male 08/31/2019 2:40 PM CDT [...] here in the main operating room at [facility]. Note patient is from [facility] and would undergo his outpatient training for peritoneal dialysis outside of the [facility] system. Tee Celeste MD documented in this [...] documented as of this encounter Care Teams Pet Groomer Relationship Specialty Start Date End Date Elsewhere, Pcp PCP - General Family Medicine 01/29/20 documented as of this encounter
--- OUTSIDE RECORDS SUMMARY | 2023-06-13 11:04 | XMS_ITS | Encounter Summary ---
Author Name Unknown Organization [facility] Address [address] [place] [address] Care Team Providers Care Distribution District Supervisor Name Role Phone Elsewhere, Pcp Primary Care Provider Unavailabl e Encounter Details Date Type Department Care Team (Late st Contact Info) Description 11/05/2022 Clinical Communication Division of Nephrology and Hypertension in [place], [place] [address] [place] [address] Haseeb Menon Jr., D.O. [address] [place] [address] Social History Tobacco Use Types Packs/Day Years [...] How often do you attend quaker or nondenominational serv ices? Never 03/24/2021 Do [...] Answer Date Recorded PHQ-2 Score 0 10/20/2018 [facility] - Occupational Stress Questionnaire Answer Date Recorded [...] your living situation today? I have a [facility] place to live 10/26/2022 Education Answer Date Recorded What is the highest level of school you have completed or the highest degree you have received? 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/2021 8:13 PM RETAIL STOCK CLERK Gender Identity Male 08/31/2019 2:40 PM CDT Sexual Orientation Straight 08/31/2019 2: 40 PM CDT documented as of this encounter Plan of Treatment Not on file documented as of this encounter Visit Diagnoses Not on filedocumented in this encounter Additional Health Concerns Assessment Noted Time PHQ-9 Depression Total Score: 3 01/04/20 18 10:38 AM CDT documented as of this encounter Care Teams Distribution District Supervisor Relationship Specialty Start Date End Date Elsewhere, Pcp PCP - General Family Medicine 01/29/20 documented as of this encounter
--- OUTSIDE RECORDS SUMMARY | 2023-06-13 11:04 | XMS_ITS | Encounter Summary ---
Author Name Unknown Organization [facility] Address [address] [place] [address] Care Team Providers Care Tunnel Drier Operator Name Role Phone Elsewhere, Pcp Primary Care Provider Unavailabl e Reason for Visit * Appointment Request (Routine) - Closed Specialty Diagnoses / Procedures Referred By Robi t Referred To Contact Nephrology and Hypertension Referral ID Status Reason Start Date Expiration Date Visits Re quested Visits Authorized [id number] Closed 08/27/2022 08/27/2023 1 Encounter Details Date Type Department Care Team (Latest Contact Info) Description 09/14/2022 9:00 AM CDT External Outreach Division of Nephrology and Hypertension in [place], [place] [address] [place] [address] Haseeb Menon Jr., D.O. [address] [place] [address] Hypertension And Chronic Kidney Disease Stage 4 [...] week 03/24/2021 How often do you attend moravian or episcopalian serv ices? Never 03/24/2021 Do you belong to any clubs o r organizations such as moravian groups, unions, fraternal or athletic groups, or [...] Answer Date Recorded PHQ-2 Score 0 10/20/2018 [facility] of Occupat ional Health - Occupational [...] or slept in a residential (including now)? No 03/24/2021 Nutrition Answer Date [...] Sex Assigned at Male 03/24/2021 8:13 PM FILM AND VIDEO GRAPHICS DESIGNER Gender Identity Male 08/31/2019 2:40 PM CDT [...] Provider: ELSEWHERE, PCP SUBJECTIVE REASON FOR VISIT [place] [facility] Follow-up regards CKD [...] He has been seeing providers at [facility] as well as here in [place], and has been struggling with severe neck, [...] TAKE ONE CAPSULE BY MOUTH EVERY DAY [facility], Disp: , Rfl: nortriptyline (PAMELOR) 50 mg [...] documented as of this encounter Care Teams Tunnel Drier Operator Relationship Specialty Start Date End Date Elsewhere, Pcp PCP - General Family Medicine 01/29/20 documented as of this encounter
--- OUTSIDE RECORDS SUMMARY | 2023-06-13 11:04 | XMS_ITS | Encounter Summary ---
Author Name Unknown Organization [facility] Address [address] [place] [address] Care Team Providers Care Qualitative Executive Researcher Name Role Phone Elsewhere, Pcp Primary Care Provider Unavailabl e Encounter Details Date Type Department Care Team (Late st Contact Info) Description 10/15/2022 Clinical Communication Division of Nephrology and Hypertension in [place], [place] [address] [place] [address] Farrah Barnes M.D., Ph.D. [address] [place] [address] Social History Tobacco Use Types Packs/Day Years [...] How often do you attend hoahaoism or mormonism serv ices? Never 03/24/2021 Do you belong [...] slept in a senior living (including now)? No 03/24/2021 Nutrition Answer Date [...] Sex Assigned at Male 03/24/2021 8:13 PM PLASTER FOREMAN Gender Identity Male 08/31/2019 2:40 PM CDT Sexual Orientation Straight 08/31/2019 2: 40 PM CDT documented as of this encounter Miscellaneous Notes * Telephone Encounter - Farrah Barnes M.D., Ph.D. - 10/15/2022 1:39 PM CDT I have contacted Mr. Walton to discuss his most recent labs done today. His creatinine is slightlyhigher than his last values done at [facility], likely a fluctuation within his new baseline. [...] documented as of this encounter Care Teams Qualitative Executive Researcher Relationship Specialty Start Date End Date Elsewhere, Pcp PCP - General Family Medicine 01/29/20 documented as of this encounter
--- OUTSIDE RECORDS SUMMARY | 2023-06-13 11:04 | XMS_ITS | Encounter Summary ---
Author Name Unknown Organization [facility] Address [address] [place] [address] Care Team Providers Care Classification And Treatment Director Name Role Phone Elsewhere, Pcp Primary Care Provider Unavailabl e Encounter Details Date Type Department Care Team (Late st Contact Info) Description 10/27/2022 Episode Changes Division of Nephrology and Hypertension in [place], [place] [address] [place] [phone] Malathi Penaloza, RFeiN. [address] [place] [address] Social History Tobacco Use Types Packs/Day Years [...] How often do you attend zoroastrianism or adventist serv ices? Never 03/24/2021 Do [...] Score 0 10/20/2018 [facility] - Occupational Stress Questionnaire Answer [...] your living situation today? I have a [facility] place to live 10/26/2022 Education Answer Date Recorded What is the highest level of school you have completed or the highest degree you have received? 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/2021 8:13 PM HOT TOP LINER Gender Identity Male 08/31/2019 2:40 PM CDT Sexual Orientation Straight 08/31/2019 2: 40 PM CDT documented as of this encounter Plan of Treatment Not on file documented as of this encounter Visit Diagnoses Not on filedocumented in this encounter Additional Health Concerns Assessment Noted Time PHQ-9 Depression Total Score: 3 01/04/20 18 10:38 AM CDT documented as of this encounter Care Teams Classification And Treatment Director Relationship Specialty Start Date End Date Elsewhere, Pcp PCP - General Family Medicine 01/29/20 documented as of this encounter
--- OUTSIDE RECORDS SUMMARY | 2023-06-13 11:04 | XMS_ITS | Encounter Summary ---
Author Name Unknown Organization [facility] Address [address] [place] [address] Care Team Providers Care Lens Grinder Rough Name Role Phone Elsewhere, Pcp Primary Care Provider Unavailabl e Reason for Visit * Appointment Request (Routine) - Closed Specialty Diagnoses / Procedures Referred By Robi t Referred To Contact Transplant Diagnoses Pre Procedures Pre [facility] Referral ID Status Reason Start Date Expiration Date Visits Re quested Visits Authorized [id number] Closed 09/16/2022 09/16/2023 1 1 Encounter Details Date Type Department Care Team (Latest Contact Info) Description 09/21/2022 9:00 AM CDT Clinical Communication [facility] [place], [place] [address] [place] [address] Regina Basurto R.N., C.C.T.C. [address] [place] [address] Social History Tobacco Use Types Packs/Day Years [...] How often do you attend sikhism or pentecostal serv ices? Never 03/24/2021 Do you belong [...] 0 10/20/2018 [facility] of Occupat ional Health - Occupational [...] or slept in a alf (including now)? No 03/24/2021 Nutrition Answer Date [...] Assigned at Male 03/24/2021 8:13 PM COMMERCIAL CREDIT REVIEWER Gender Identity Male 08/31/2019 2:40 PM CDT Sexual Orientation Straight 08/31/2019 2: 40 PM CDT documented as of this encounter Plan of Treatment Not on file documented as of this encounter Visit Diagnoses Not on filedocumented in this encounter Additional Health Concerns Assessment Noted Time PHQ-9 Depression Total Score: 3 01/04/20 18 10:38 AM CDT documented as of this encounter Care Teams Lens Grinder Rough Relationship Specialty Start Date End Date Elsewhere, Pcp PCP - General Family Medicine 01/29/20 documented as of this encounter
--- OUTSIDE RECORDS SUMMARY | 2023-06-13 11:04 | XMS_ITS | Encounter Summary ---
Author Name Unknown Organization [facility] Address [address] [place] [address] Care Team Providers Care Business Analyst Manager Name Role Phone Elsewhere, Pcp Primary Care Provider Unavailabl e Reason for Visit * Appointment Request (Routine) - Closed Specialty Diagnoses / Procedures Referred By Rboi t Referred To Contact Nephrology and Hypertension Referral ID Status Reason Start Date Expiration Date Visits Re quested Visits Authorized [id number] Closed 09/23/2022 09/23/2023 1 1 Encounter Details Date Type Department Care Team (Latest Contact Info) Description 10/26/2022 9:00 AM CDT External Outreach Division of Nephrology and Hypertension in [place], [place] [address] [place] [address] Haseeb Menon Jr., D.O. [address] [place] [address] Hypertension And Chronic Kidney Disease Stage 4 (HCC) (Primary Dx); Diabetes Mellitus Type 2 With Diabetic Nephropathy (HCC); Anemia Of Chronic Renal Disease; Peripheral Arterial Disease (HCC); Hyperparathyroidism Secondary (HCC); Atherosclerosis Of [place] Arteries Of Left Leg With Ulceration Of [...] week 03/24/2021 How often do you attend faith or buddhism serv ices? Never 03/24/2021 Do you belong to any clubs o r organizations such as faith groups, unions, fraternal or athletic groups, or [...] [facility] - Occupational Stress Questionnaire Answer [...] your living situation today? I have a [facility] place to live 10/26/2022 Education Answer Date Recorded What is the highest level of school you have completed or the highest degree you have received? 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/2021 8:13 PM CHINESE MEDICINE PRACTITIONER Gender Identity Male 08/31/2019 2:40 PM CDT [...] Provider: ELSEWHERE, PCP SUBJECTIVE REASON FOR VISIT [place] [facility] Follow-up regarding CKD [...] candidate. 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 #2 Diabetes Mellitus Type 2 With Diabetic Nephropathy ([facility]) His glycemic control is variable currently, his [...] consider blood transfusion. #4 Peripheral Arterial Disease ([facility]) No open active wounds currently, no rest claudication. #5 Hyperparathyroidism Secondary ([facility]) Reminded him to take his 500 mg Tums 2 with each meal. This will help with his pruritus, as well as binding his phosphorus and improving his serum calciumlevel. #6 Atherosclerosis Of [place] Arteries Of Left Leg With Ulceration Of Unspecified Site (HCC) This has resolved #7 Depression Major Recurrent Moderate (HCC) He is well compensated from this perspective Please note he was accompanied to his visit today by his and daughter who are excellent ladle repairer for him. #8.: PA ME He is [...] Disease (HCC) Hyperparathyroidism Secondary (HCC) Atherosclerosis Of [place] Arteries Of Left Leg With Ulceration Of Unspecified Site (HCC) Depression Major Recurrent Moderate (HCC) documented in this encounter Additional Health Concerns Assessment Noted Time PHQ-9 Depression Total Score: 3 01/04/20 18 10:38 AM CDT documented as of this encounter Care Teams Business Analyst Manager Relationship Specialty Start Date End Date Elsewhere, Pcp PCP - General Family Medicine 01/29/20 documented as of this encounter
--- OUTSIDE RECORDS SUMMARY | 2023-06-13 11:04 | XMS_ITS | Encounter Summary ---
Author Name Unknown Organization [facility] Address [address] [place] [address] Care Team Providers Care Brewmaster Name Role Phone Elsewhere, Pcp Primary Care Provider Unavailabl e Encounter Details Date Type Department Care Team (Late st Contact Info) Description 11/01/2022 Documentation Division of Nephrology and Hypertension in [place], [place] [address] [place] [phone] Deanna Dias M.SFeiN., R.N. [address] [place] [phone] Social History Tobacco Use Types Packs/Day Years [...] How often do you attend evangelical or adventism serv ices? Never 03/24/2021 Do [...] Recorded PHQ-2 Score 0 10/20/2018 [facility] of Occupat ional Health - Occupational [...] your living situation today? I have a [facility] place to live 10/26/2022 Education Answer Date Recorded What is the highest level of school you have completed or the highest degree you have received? 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/2021 8:13 PM STEWARD/STEWARDESS TOURIST CLASS Gender Identity Male 08/31/2019 2:40 PM CDT [...] peritoneal dialysis will be orchestrated through the [facility] dialysissystem per Dr. Menon note on 10/26/22. [...] documented as of this encounter Care Teams Brewmaster Relationship Specialty Start Date End Date Elsewhere, Pcp PCP - General Family Medicine 01/29/20 documented as of this encounter
--- OUTSIDE RECORDS SUMMARY | 2023-06-13 11:05 | XMS_ITS | Encounter Summary ---
Author Name Unknown Organization [facility] Address [address] [place] [address] Care Team Providers Care Contractor Buyer Name Role Phone Elsewhere, Pcp Primary Care Provider Unavailabl e Encounter Details Date Type Department Care Team (Late st Contact Info) Description 07/05/2022 Orders Only Division of Nephrology and Hypertension in [place], [place] [address] [place] [address] Haseeb Menon Jr., D.O. [address] [place] [address] Social History Tobacco Use Types Packs/Day Years [...] week 03/24/2021 How often do you attend spiritism or sikh serv ices? Never 03/24/2021 Do you belong to any clubs o r organizations such as spiritism groups, unions, fraternal or athletic groups, or [...] Recorded PHQ-2 Score 0 10/20/2018 [facility] of Occupat ional Health - Occupational [...] Sex Assigned at Male 03/24/2021 8:13 PM ACTUARIAL INTERN Gender Identity Male 08/31/2019 2:40 PM CDT Sexual Orientation Straight 08/31/2019 2: 40 PM CDT documented as of this encounter Plan of Treatment Not on file documented as of this encounter Visit Diagnoses Not on filedocumented in this encounter Additional Health Concerns Assessment Noted Time PHQ-9 Depression Total Score: 3 01/04/20 18 10:38 AM CDT documented as of this encounter Care Teams Contractor Buyer Relationship Specialty Start Date End Date Elsewhere, Pcp PCP - General Family Medicine 01/29/20 documented as of this encounter
--- OUTSIDE RECORDS SUMMARY | 2023-06-13 11:05 | XMS_ITS | Encounter Summary ---
Author Name Unknown Organization [facility] Address [address] [place] [address] Care Team Providers Care Director Video Name Role Phone Elsewhere, Pcp Primary Care Provider Unavailpaola e Encounter Details Date Type Department Care Team (Late st Contact Info) Description 08/19/2016 Historical Ophthalmology [facility] Chalo Holland Jr., M.D. [address] [place] [address] Social History Tobacco Use Types Packs/Day Years Used Date Smoking Tobacco: Every Day Sex and Gender Information Value Date Recorded Sex Assigned at Male 03/24/2021 8:13 PM DATABASE ENGINEER Gender Identity Male 08/31/2019 2:40 PM [...] IOL OU CDM Reports - EYEGEN Id: [id number] Status: Fnl documented in this encounter Plan of Treatment Not on file documented as of this encounter Visit Diagnoses Not on filedocumented in this encounter Additional Health Concerns Infection Onset Date Last Indicated Resolved Time COVID19 Pending 05/08/2020 05/08/2020 05/08/2020 2 :44 PM DATABASE ENGINEER Assessment Noted Time PHQ-9 Depression Total Score: 7 08/17/19 17 9:01 AM CDT documented as of this encounter Care Teams Director Video Relationship Specialty Start Date End Date Elsewhere, Pcp PCP - General Family Medicine 01/29/20 documented as of this encounter
--- OUTSIDE RECORDS SUMMARY | 2023-06-13 11:05 | XMS_ITS | Encounter Summary ---
Author Name Unknown Organization [facility] Address [address] [place] [address] Care Team Providers Care Remote Coders Name Role Phone Elsewhere, Pcp Primary Care Provider Unavailabl e Reason for Visit * Reason Comments Med Refill Encounter Details Date Type Department Care Team (Late st Contact Info) Description 06/23/2022 Refill Division of Nephrology and Hypertension in [place], [place] [address] [place] [address] Hui Delgado APRN, C.N.P., R.N. Med Refill [...] How often do you attend nondenominational or jehovah's witness serv ices? Never 03/24/2021 [...] Answer Date Recorded PHQ-2 Score 0 10/20/2018 [facility] [place] of Occupat ional Health - Occupational Stress [...] Sex Assigned at Male 03/24/2021 8:13 PM ELECTRO WINNING OPERATOR Gender Identity Male 08/31/2019 2:40 PM CDT Sexual Orientation Straight 08/31/2019 2: 40 PM CDT documented as of this encounter Plan of Treatment Not on file documented as of this encounter Visit Diagnoses Not on filedocumented in this encounter Additional Health Concerns Assessment Noted Time PHQ-9 Depression Total Score: 3 01/04/20 18 10:38 AM CDT documented as of this encounter Care Teams Remote Coders Relationship Specialty Start Date End Date Elsewhere, Pcp PCP - General Family Medicine 01/29/20 documented as of this encounter
--- OUTSIDE RECORDS SUMMARY | 2023-06-13 11:05 | XMS_ITS ---
Author Name Unknown Organization [facility] Address [address] [place] [address] Care Team Providers Care Corporate Development Officer Name Role Phone Elsewhere, Pcp Primary Care Provider Unavailabl e Transplant Episode Kidney Candidate [place], [place]) - [facility] Referred on 09/16/2022 Marked as Ineligible on 09/21/2022 Reason: Surgical Contraindication Kidney CoordinatorDetiffany Becerra R.N., C.C.T.C. Email: [email or web address] [email or web address] Score Value Updated Exceptions/Reas ons CPRA Not available EPTS (Calc) 71 06/13/2023 Care Team Name Role Phone Fax Email Regina Becerra R.N., C.C.T.C. Kidney Coordinator [phone] [email or web address] Haseeb Menon Jr., D.O. Referring Provider [phone] [email or web address] Pre-Transplant Referred: 09/16/2022
--- OUTSIDE RECORDS SUMMARY | 2023-06-13 11:05 | XMS_ITS | Continuity of Care Document ---
Author Name Unknown Organization [facility] Address [address] [place] [address] Phone Care Team Providers Care Home Health Caregiver Name Role Phone Dot Warner Unavailable Unavailable Medications Medication Instructions Dosage Effective Dates (start - stop) Status Comments AMPICILLIN-SULBACTAM (unknown strength) Not Available - Active MINOCYCLINE HCL (unknown strength) Not Available - Active Procedures Procedure Date Office/Outpatient Visit,Est, Mod 2022 OFFICE/OUTPATIENT VISIT EST Phone Office/Outpatient Visit,Est, Mod 2022 Followup Hospital Care, [facility] 2021 Advance Directives Directive Yes / No Effective Date File Name No Information Encounters Encounter Description Practice Location Reason(s) For Visit Diagnoses Date Provider Providers Copied on Encounter [facility], [address], [place], [place], [id number] , [place] tel: [phone] [facility] - [facility] No Information 3 Kindra Chris. [facility], [address] [place] [address] [address], [place], [address], [place]. tel: [phone] Office/Outpa tient Visit,Est, Mod [facility], [address], [place], [place], [id number] , [place] tel: [phone] [facility] - [facility] Spinal stenosis, lumbar region with neurogenic claudication 3 Camille Bob. [facility], [address] [place] [address], [address], [place], [address], [place]. tel: [phone] Referring Provider: Lisbeth Thomas, [facility] [address], [address], [place], [address]. [phone] OFFICE/OUTPA TIENT VISIT EST Phone [facility], [address], [place], [place], [id number] , [place] tel:[phone] [facility] No Information 3 Obrien Lisbeth. [facility], [address], [address], [place], [address], [place]. tel:[phone] Referring Provider: Lisbeth Thomas, [facility] [address], [address], [place], [address]. tel:[phone] Office/Outpa tient Visit,Est, Mod [facility], [address], [place], [place], [id number] , [place] [phone] [facility] Low back pain, unspecifiedOther specified soft tissue disorders 3 Obrien Lisbeth. [facility], [address], [address], [place], [address], [place]. tel:[phone] Referring Provider: Lisbeth Thomas, [facility] [address], [address], [place], [address]. tel:[phone] Followup Hospital Care, Moderate [facility], [address], [place], [place], [id number] , [place] [phone] [facility] No Information 2 Nicolasana paula Velez. [facility], [address], [address], [place], [address], [place]. tel:[phone] Referring Provider: Rudy Riddle, [facility] [address], [address]. tel:[phone] Family History Family Member Type Diagnosis Age At Onset No Information Payers Payer name Insurance type Covered libertarian ID Authorjaime[place] bhargav([place] [id number] Medicare [facility] BL [id number] Social History Type Description Quantity Date Captured Comments Alcohol Use Details Unknown Caffeine Use Details Unknown Tobacco Use Status No Information Smoking Status No Information Sex Male Chief Complaint And Reason For Visit No Information Reason For Referral Reason For Referral No Information History Of Present Illness Encounter Date Complaint History Of Prese nt Illness No Information Functional Status Date Functional Assessmen t No Information Instructions Date Instruction Additional Infor mation No Information Assessments Type Assessment Date No Information Patient Care Teams Name Effective Dates (start - stop) Status Members No Information
--- OUTSIDE RECORDS SUMMARY | 2023-06-13 11:05 | XMS_ITS | Encounter Summary ---
Author Name Unknown Organization [facility] Address [address] [place] [address] Care Team Providers Care Addiction Psychiatrist Name Role Phone Elsewhere, Pcp Primary Care Provider Unavailabl e Encounter Details Date Type Department Care Team (Latest Contact Info) Description 09/06/2022 10:39 AM CDT - 09/06/2022 11:59 PM CDT Hospital Encounter Department of Laboratory Medicine in [place], [place] [address] [place] [address] Haseeb Menon Jr., D.O. [address] [place] [address] Hypertension And Chronic Kidney Disease Stage 4 [...] How often do you attend catholic or hinduism serv ices? 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/2021 8:13 PM MANAGER PHILOSOPHY Gender Identity Male 08/31/2019 2:40 PM CDT [...] Menon Jr., D.O. LAB BLOOD AD D-ON [facility] [address] [place], [place] [id number] [place] [address] Lab - [address] [address] * Uric Acid (09/06/2022 11:04 AM CDT) Uric Acid, P 5.8 3.7 - 8.0 mg/dL 09/06/2022 4:47 PM CDT AUST Blood (Blood, Venous) 09/06/2022 11:04 AM CDT 09/06/2022 4:24 PM CDT Haseeb Menon Jr., D.O. LAB BLOOD AD D-ON Performing Organization Address [facility] Co de Phone Number [facility] [address] [place] [address], [facility] Lab - [address] [address] * (ABNORMAL) Parathyroid Hormone (PTH) (09/06/2022 11:04 AM CDT) Parathyroid Hormone (PTH), S 240(H) 15 - 65 pg/mL 09/06/2022 5:01 PM CDT AUST Comment: Biotin has been identified by the route deliverer as a potential interfering substance. Higher concentrations of biotin may be found in multivitamins, hair/nail supplements, and workout supplements. If the result does not match clinical observations, repeat testing after patient refrains from the use of supplements for at least 12 hours. Blood (Blood, Venous) 09/06/2022 11:04 AM CDT 09/06/2022 4:24 PM CDT Haseeb Menon Jr., D.O. LAB BLOOD AD D-ON [facility] [address] [facility] [place] [address], [facility] AUST Alan Lab - [facility] [address] [place] [address] * (ABNORMAL) Ferritin (09/06/2022 11:04 AM CDT) Ferritin, S 640(H) 31 - 409 mcg/L 09/06/2022 3:48 PM CDT OWAT Comment: Biotin has been identified by the route deliverer as a potential interfering substance. Higher concentrations [...] LAB BLOOD AD D-ON Performing Organization Address [facility]/ZIP Co de Phone Number [facility] [address] [place] [address], [facility] OWAT [facility] in [place] [address] [place] [address] * (ABNORMAL) Hemoglobin A1c (09/06/2022 11:04 AM CDT) Pathologist [facility] Hemoglobin A1c, B 6.1(H) 4.2 - 5.6 % 09/06/2022 2:30 PM CDT OWAT Comment: Hemoglobin A1c values of 5.7-6.4 percent indicate an increased risk for developing diabetes mellitus. In diabetic patients, HbA1c goals should be discussed with healthcare provider. Blood (Blood, Venous) 09/06/2022 11:04 AM CDT 09/06/2022 1:37 PM CDT Haseeb Menon Jr., D.O. LAB BLOOD AD D-ON Performing Organization Address City/[facility]/ZIP Co de Phone Number [facility] [address] [place] [address], [place] OWAT [facility] in [address] [place] [address] * (ABNORMAL) Renal Function Panel (09/06/2022 11:04 [...] AM CDT 09/06/2022 4:24 PM CDT Narrative [facility] - 09/06/2022 4:47 PM CDT Specimen Information: Specimen ID: [id number] Specimen Type: Blood Specimen Collection Start Date: 09/06/2022 11:04 AM Specimen Received Date: 09/06/2022 ??4:24 PM Specimen ID: [id number] Specimen Type: Blood Specimen Collection Start Date: 09/06/2022 11:04 AM Specimen Received Date: 09/06/2022 ??1:38 PM Haseeb Menon Jr., D.O. LAB BLOOD AD D-ON [facility] [address] [place] [address], [facility] OWAT [facility] [place] [address] [place] [address] [facility] [address] [place] [address] * (ABNORMAL) CBC with Differential, Blood (09/06/2022 11:04 AM CDT) Pathologist [facility] Hemoglobin 8.8(L) 13.2 - 16.6 g/dL 09/06/2022 [...] Estiven He Jr.OFei LAB BLOOD AD D-ON [facility] [address] [place] [address], [facility] FB60 [facility] [place] [address] documented in this encounter Visit Diagnoses Diagnosis [...] documented as of this encounter Care Teams Addiction Psychiatrist Relationship Specialty Start Date End Date Elsewhere, Pcp PCP - General Family Medicine 01/29/20 documented as of this encounter
--- OUTSIDE RECORDS SUMMARY | 2023-06-13 11:05 | XMS_ITS | Encounter Summary ---
Author Name Unknown Organization [facility] Address [address] [place] [address] Care Team Providers Care Science Instructor Name Role Phone Elsewhere, Pcp Primary Care Provider Unavailabl e Reason for Visit * Reason Onset Date Comments Med Question 07/08/2022 Encounter Details Date Type Department Care Team (Latest Contact Info) Description 07/08/2022 Clinical Communication Division of Nephrology and Hypertension in [place], [place] [address] [place] [address] Haseeb Menon Jr., D.O. [address] [place] [address] Med Question Social History Tobacco Use Types [...] How often do you attend amish or protestant serv ices? Never 03/24/2021 Do [...] PHQ-2 Score 0 10/20/2018 [facility] of Occupat ional Health - Occupational Stress [...] Sex Assigned at Male 03/24/2021 8:13 PM BOOKING OFFICER Gender Identity Male 08/31/2019 2:40 PM [...] following references were used: nursing clinical judgement ING OFFICER * Telephone Encounter - Trino Hair - 07/08/2022 1:35 PM CST Caller is: patient Preferred Communication Method: [phone] (mobile) Reason for call: Patient called and said he is being seen in [facility] for gout in his hand. His PCP would like Dr. Menon's opinion on what medication they should give the patient that is not too harmful for his kidneys. Patient tells me he has been on prednisone for the past week but as soon as he stopped taking it his hand started swelling again. His PCP suggested Uloric or Allopurinol. ING OFFICER documented in this encounter Plan of Treatment Not on file documented as of this encounter Visit Diagnoses Not on filedocumented in this encounter Additional Health Concerns Assessment Noted Time PHQ-9 Depression Total Score: 3 01/04/20 18 10:38 AM CDT documented as of this encounter Care Teams Science Instructor Relationship Specialty Start Date End Date Elsewhere, Pcp PCP - General Family Medicine 01/29/20 documented as of this encounter
--- OUTSIDE RECORDS SUMMARY | 2023-06-13 11:05 | XMS_ITS | Encounter Summary ---
Author Name Unknown Organization [facility] Address [address] [place] [address] Care Team Providers Care Cleaner Furniture Name Role Phone Elsewhere, Pcp Primary Care Provider Unavailabl e Reason for Visit * Reason Onset Date Comments Amlodipine RX 07/01/2022 Encounter Details Date Type Department Care Team (Latest Contact Info) Description 07/01/2022 Clinical Communication Division of Nephrology and Hypertension in [place], [place] [address] [place] [address] Haseeb Menon Jr., D.O. [address] [place] [address] Amlodipine RX Social History Tobacco Use Types [...] How often do you attend buddhism or caodaism serv ices? Never 03/24/2021 Do [...] PHQ-2 Score 0 10/20/2018 [facility] of Occupat ional Health - Occupational Stress [...] or slept in a correction (including now)? No 03/24/2021 Nutrition Answer Date [...] Sex Assigned at Male 03/24/2021 8:13 PM BANDER AND CELLOPHANER HELPER MACHINE Gender Identity Male 08/31/2019 2:40 PM CDT Sexual Orientation Straight 08/31/2019 2: 40 PM CDT documented as of this encounter Miscellaneous Notes * Telephone Encounter - Ana Maria Gutiérrez - 07/01/2022 1:37 PM CST Caller is: other: Authorization YES Preferred Communication Method: [phone] Reason for call: Pharmacy calls stating Dr. [...] if 10 mg is correct. Thank you. ER AND CELLOPHANER HELPER MACHINE documented in this encounter Plan of Treatment Not on file documented as of this encounter Visit Diagnoses Not on filedocumented in this encounter Additional Health Concerns Assessment Noted Time PHQ-9 Depression Total Score: 3 01/04/20 18 10:38 AM CDT documented as of this encounter Care Teams Cleaner Furniture Relationship Specialty Start Date End Date Elsewhere, Pcp PCP - General Family Medicine 01/29/20 documented as of this encounter
== END 2023-06-13 10:59 | disposition home or self-care (01) ==
LOC: WOUND 10:58
PROVIDERS: PCP Family Medicine; Visit Provider Nurse Practitioner Family
DX: E11.621 Type 2 diabetes mellitus with foot ulcer (principal); L97.515 Non-pressure chronic ulcer of other part of right foot with muscle involvement without evidence of necrosis; I73.9 Peripheral vascular disease, unspecified; N18.5 Chronic kidney disease, stage 5; Z96.41 Presence of insulin pump (external) (internal)
CPT/HCPCS: 11043

== ENCOUNTER 2023-06-15 13:23 | Outpatient (CLI) | payer MEDICARE, BC, SELFPAY ==
--- OUTSIDE RECORDS SUMMARY | 2023-06-15 13:28 | XMS_ITS | Clinical Summary ---
Author Name Unknown Organization [facility] Address [place], [place] [address] Care Team Providers Care Telephone Maintainer Name Role Phone Casa Lucia MD Unavailable Unavailable Rudy Riddle MD Unavailable [phone] Rudy Riddle MD Primary Care Provider + Allergies Active Allergy Reactions Criticality Noted Date Comments Gabapentin Other - Describe In Comment Field Medium 08/04/2020 Dizzy, memory issue Dizzy, memory issue Morphine Itching 02/04/2010 After 3 days of use Pregabalin Anaphylaxis,Itching High 02/16/2017 swell swell Lyjhwcu-Jps-Ues Reductase Inhibitors Myalgia 02/13/2014 Medications Medication Sig [...] Comments Blood Pressure 162/87 07/21/2022 9:21 PM WASTEWATER ANALYST LAB ANALYST Pulse 100 07/21/2022 9:21 PM WASTEWATER ANALYST LAB ANALYST Temperature 37.1 ??C (98.8 ??F) 07/21/2022 8:51 PM CS T Respiratory Rate 18 07/21/2022 8:51 PM WASTEWATER ANALYST LAB ANALYST Oxygen Saturation 96% 07/21/2022 9:21 PM WASTEWATER ANALYST LAB ANALYST Inhaled Oxygen Concentration - - Weight 83.9 kg (185 lb) 07/21/2022 5:35 PM WASTEWATER ANALYST LAB ANALYST Height 175.3 cm (5' 9) 07/21/2022 5:35 PM WASTEWATER ANALYST LAB ANALYST Body Mass Index 27.32 07/21/2022 5:35 PM WASTEWATER ANALYST LAB ANALYST Plan of Treatment Health Maintenance Due Date [...] age 77 05/12/203205/12, 02/04/2006 [facility] Tdap Completed 08/16/2016 Pneumococcal series for age [...] Preferences, Provider to review later Care Teams Telephone Maintainer Relationship Specialty Start Date End Date Rudy Riddle MD [address] [place] [address] PCP - General Family Practice 05/25/22 Casa Lucia MD [address] [facility] [address] [place] [address] Ophthalmology Ophthalmology Surgery 12/22/11 Rudy Riddle MD [address] [facility] [place] [address] Family Practice 05/07/22
--- OUTSIDE RECORDS SUMMARY | 2023-06-15 13:28 | XMS_ITS | Encounter Summary ---
Author Name Unknown Organization [facility] Address [address] [place] [address] Care Team Providers Care Tire Maintenance Technician Name Role Phone Elsewhere, Pcp Primary Care Provider Unavailabl e Reason for Referral * Outpatient (Routine) - Authorized Specialty Diagnoses / Procedures Referred By Robi hong Referred To Contact Sleep Medicine Diagnoses Chronic Kidney Disease Stage 5 Glomerular Filtration Rate Less Than 15 (HCC) Hypertension And Chronic Kidney Disease Stage 4 (HCC) Sleep Disorder Haseeb Menon Jr., D.O. [address] [place] [address] [facility] Referral ID Status Reason Start Date Expiration Date Visits Requested Visits Authorized [id number] Authorized Specialty Services Required 04/15/2023 04/14/2024 1 1 GER CRITICAL CARE Encounter Details Date Type Department Care Team (Late st Contact Info) Description 04/15/2023 Orders Only Division of Nephrology and Hypertension in [place], [place] [address] [place] [address] Haseeb Menon Jr., D.O. [address] [place] [phone] Chronic Kidney Disease Stage 5 Glomerular Filtration [...] often do you attend moravian or temple serv ices? Never 03/24/2021 Do [...] Answer Date Recorded PHQ-2 Score 0 10/20/2018 [facility] of Occupat ional Health - [...] living situation today? I have a [facility] place to live 10/26/2022 Education Answer Date Recorded What is the highest level of school you have completed or the highest degree you have received? 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/2021 8:13 PM MANAGER CRITICAL CARE Gender Identity Male 08/31/2019 2:40 PM CDT [...] as of this encounter Care Teams Tire Maintenance Technician Relationship Specialty Start Date End Date Elsewhere, Pcp PCP - General Family Medicine 01/29/20 documented as of this encounter
--- OUTSIDE RECORDS SUMMARY | 2023-06-15 13:28 | XMS_ITS | Encounter Summary ---
Author Name Unknown Organization [facility] Address [address] [place] [address] Care Team Providers Care Speeder Hand Name Role Phone Elsewhere, Pcp Primary Care Provider Unavailabl e Encounter Details Date Type Department Care Team (Late st Contact Info) Description 03/21/2023 Orders Only Division of Nephrology and Hypertension in [place], [place] [address] [place] [address] Haseeb Menon Jr., D.O. [address] [place] [address] Social History Tobacco Use Types Packs/Day Years [...] How often do you attend adventism or restorationist serv ices? Never 03/24/2021 Do you belong [...] Sex Assigned at Male 03/24/2021 8:13 PM EXECUTIVE ASSOCIATE Gender Identity Male 08/31/2019 2:40 PM CDT Sexual Orientation Straight 08/31/2019 2: 40 PM CDT documented as of this encounter Plan of Treatment Not on file documented as of this encounter Visit Diagnoses Not on filedocumented in this encounter Additional Health Concerns Assessment Noted Time PHQ-9 Depression Total Score: 3 01/04/20 18 10:38 AM CDT documented as of this encounter Care Teams Speeder Hand Relationship Specialty Start Date End Date Elsewhere, Pcp PCP - General Family Medicine 01/29/20 documented as of this encounter
--- OUTSIDE RECORDS SUMMARY | 2023-06-15 13:28 | XMS_ITS | Continuity of Care Document ---
Author Name Unknown Organization [facility] Address [address] [place] [address] Phone Care Team Providers Care Movie Editor Name Role Phone Dot Warner Unavailable Unavailable Medications Medication Instructions Dosage Effective Dates (start - stop) Status Comments AMPICILLIN-SULBACTAM (unknown strength) Not Available - Active MINOCYCLINE HCL (unknown strength) Not Available - Active Procedures Procedure Date Office/Outpatient Visit,Est, Mod 2022 OFFICE/OUTPATIENT VISIT EST Phone Office/Outpatient Visit,Est, Mod 2022 Followup Hospital Care, [facility] 2021 Advance Directives Directive Yes / No Effective Date File Name No Information Encounters Encounter Description Practice Location Reason(s) For Visit Diagnoses Date Provider Providers Copied on Encounter [facility], [address], [place], [place], [id number] , [place] tel: [phone] [facility] - [facility] No Information 3 Kindra Chris. [facility], [address] [place] [address] [address], [place], [address], [place]. tel: [phone] Office/Outpa tient Visit,Est, Mod [facility], [address], [place], [place], [id number] , [place] tel: [phone] [facility] - [facility] Spinal stenosis, lumbar region with neurogenic claudication 3 Camille Bob. [facility], [address] [place] [address], [address], [place], [address], [place]. tel: [phone] Referring Provider: Lisbeth Thomas, [facility] [address], [address], [place], [address]. [phone] OFFICE/OUTPA TIENT VISIT EST Phone [facility], [address], [place], [place], [id number] , [place] tel:[phone] [facility] No Information 3 Obrien Lisbeth. [facility], [address], [address], [place], [address], [place]. tel:[phone] Referring Provider: Lisbeth Thomas, [facility] [address], [address], [place], [address]. tel:[phone] Office/Outpa tient Visit,Est, Mod [facility], [address], [place], [place], [id number] , [place] [phone] [facility] Low back pain, unspecifiedOther specified soft tissue disorders 3 Obrien Lisbeth. [facility], [address], [address], [place], [address], [place]. tel:[phone] Referring Provider: Lisbeth Thomas, [facility] [address], [address], [place], [address]. tel:[phone] Followup Hospital Care, Moderate [facility], [address], [place], [place], [id number] , [place] [phone] [facility] No Information 2 Nicolasana paula Velez. [facility], [address], [address], [place], [address], [place]. tel:[phone] Referring Provider: Rudy Riddle, [facility] And [address], [address]. tel:[phone] Family History Family Member Type Diagnosis Age At Onset No Information Payers Payer name Insurance type Covered green party ID Authorjaimea bhargav(s) [place] [id number] Medicare [facility] [id number] 1 Social History Type Description Quantity Date [...]
--- OUTSIDE RECORDS SUMMARY | 2023-06-15 13:28 | XMS_ITS | Referral Summary ---
Author Name Unknown Organization [facility] Address [address] [place] [address] Care Team Providers Care Iron Assorter Name Role Phone Elsewhere, Pcp Primary Care Provider Unavailabl e Source Comments Patient records contain information from all sites at [facility]. For routine questions regarding patient records, call [phone] during business hours, M-F 8:00 AM - 5:00 PM Central Time. Record requests for emergency care only can be directed to [phone] at any time.[facility] Encounters Date Type Department Care Team Description 04/26/2023 Orders Only Division of Nephrology and Hypertension in [place], [place] [address] [place] [address] Haseeb Menon Jr., D.O. 04/15/2023 Orders Only Division of Nephrology and Hypertension in [place], [place] [address] [place] [address] Haseeb Menon Jr., D.O. Chronic Kidney Disease Stage 5 Glomerular Filtration Rate Less Than 15 (HCC) (Primary Dx); Hypertension And Chronic Kidney Disease Stage 4 (HCC); Sleep Disorder 03/21/2023 Orders Only Division of Nephrology and Hypertension in [place], [place] [address] [place] [address] Haseeb Menon Jr., D.O. from Last 3 Months Allergies Active Allergy Reactions Criticality Noted Date Comments Gabapentin Other (see comments) Medium 08/04/2020 Dizzy, memory issue Morphine Itching,Rash Medium 02/14/2012 itchy Pregabalin Anaphylaxis High 02/16/2017 swell Qpjgovn-Law-Brc Reductase Inhibitors Myalgia Low 02/13/2014 Medications Medication [...] TAKE ONE CAPSULE BY MOUTH EVERY DAY GLOBAL TRANSPORTATION MANAGER 0 01/14/2022 Active amLODIPine (NORVASC) 5 mg [...] 04/21/2018 Restless Leg Syndrome 01/12/2018 Atherosclerosis Of [place] 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 08/08/2017 Hyperlipidemia 07/22/2017 Ulcer Leg Left 04/19/2017 Ulcer Toe Left 04/19/2017 Atherosclerosis Of [place] Ar teries Of Left Leg With Ulceration Of Unspecified Site 04/19/2017 Peripheral Arterial Disease 02/16/2017 Hypertension NOS 02/16/2017 Hypertension And Chronic Kidney Disease Stage 4 09/23/2016 Overview: Hypertension (HTN) And CKD Stage 1-4 Fpc Use Of Insulin Active 09/23/2016 Overview: Food Order Delivery Runner Use Of Insulin Active Depression Major Recurrent Moderate 06/22/2016 Overview: Depression Major Recurrent Moderate Diabetes Mellitus Type 2 Wit h Other Circulatory Complication 06/22/2016 Overview: DM2 Peripheral Neuropathy Uncontrolled Diagnosis Maintenance Updates May 2023 Immunizations Name Administration Dates Next Due HZV (ZOSTAVAX) 02/02/2012 Influenza Split 02/10/2017 Influenza TIV (IM) 05/10/2013, 2,05/27/2011,2009,03/13/2008,03/03/2007,04/04/2006 Influenza, Unspecified 02/16/2016,2015,03/17/2015,2013,05/10/2013 PCV13 04/11/2017 PPSV23(Discontinued) 04/24/2018,02/14/2012,02/13 Td (Adult), adsorbed 03/24/2007,05/16/1996 Tdap 08/16/2016,08/16/2016 influenza [...] How often do you attend quaker or bahai serv ices? Never 03/24/2021 Do [...] Recorded PHQ-2 Score 0 10/20/2018 [facility] [place] of Occupat ional Health - Occupational Stress [...] living situation today? I have a [facility] place to live 10/26/2022 Education Answer Date Recorded What is the highest level of school you have completed or the highest degree you have received? 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/2021 8:13 PM FIRMWARE ARCHITECT Gender Identity Male 08/31/2019 2:40 PM CDT [...] on file Medical Devices Implanted Type Area Pullman Car Repairer Device Identifier Shelf Expiration Date Model / Serial / Lot Patch Vasc Bovine.08cm X 8cm - Flores [id number] Implanted:Qty: 1 on 04/04/2017 Mesh or Patch Other/Legacy - See Implant Description Synovis Description:Device Manufactu rer - Synovi. Body Location - Other. Vascular. Device Status Text - [id number]. Ocular Lens-10/29/2007 Implanted:10/28 by Nato Dougherty, JULIÁN, C.N.P., R.N. (Quantity not on file) Ocular Lens Bilateral: Eye Description:Cataract extract ion and insertion of intraocular lens 06/22/2016 09:27 - NATO [place] CDL PROGRAM COORDINATOR ROUTE INSPECTOR bilateral Conversions - Default Historical Implant Device Implanted:03/04 (Quantity not on file) Ocular Lens Right: Eye Description:Body Location - Eye R. Eye L. Eye R. Device Status Text - OculrLens. Conversions - Default Historical Implant Device Implanted:05/27 (Quantity not on file) Ocular Lens Left: Eye Description:Body Location - Eye L. Device Status Text - OculrLens. Stent Vbx [id number] - [id number] Implanted:Qty: 1 on 03/04/2017 Vascular Graft Other/Legacy - See Implant Description [place] Description:Device Manufactu rer - [employer] [place] [employer] Body Location - Other. n/a. Device Status Text - [id number]. Stent Zilver Ptx 6mm X 60mm - Flores [id number] Implanted:Qty: 1 on 04/04/2017 Vascular Stent Other/Legacy - See Implant Description [employer] Description:Device Manufactu rer - Offerpop. Body Location - Other. Left. Device Status Text - [id number]. Stent Zilver Ptx 6mm X 80mm - Flores [id number] Implanted:Qty: 1 on 08/31/2017 Vascular Stent Right: Other/Legacy - See Implant Description [employer] / [id number] / Description:Device Manufactu rer - Offerpop. Body Location - Right. Device Status Text - [id number]. Stnt Innova Otw [id number] - [id number] Implanted:Qty: 1 on 04/18/2018 by Kemar Velásquez M.B.B.S. at [facility] Vascular Stent [place] [employer] 05/23/2020 [id number] / / [id number] Stnt Innova Otw [id number] - [id number] Implanted:Qty: 1 on 05/11/2019 by Kemar Velásquez M.B.B.SFei at [facility] Vascular Stent Left: Leg [place] [employer] 09/05/2020 [id number] / / [id number] Advance Directives For more information, please contact: [phone] Latest Code Status on File Code Status [...] Answer Comments Full Code: Discussed Care Teams Iron Assorter Relationship Specialty Start Date End Date Elsewhere, Pcp PCP - General Family Medicine 01/29/20
--- OUTSIDE RECORDS SUMMARY | 2023-06-15 13:28 | XMS_ITS | Clinical Summary ---
Author Name Unknown Organization [facility] Address [address] [place] [address] Care Team Providers Care Machine Design Checker Name Role Phone Elsewhere, Pcp Primary Care Provider Unavailabl e Source Comments Patient records contain information from all sites at [facility]. For routine questions regarding patient records, call [phone] during business hours, M-F 8:00 AM - 5:00 PM Central Time. Record requests for emergency care only can be directed to [phone] at any time.[facility] Allergies Active Allergy Reactions Criticality Noted Date Comments Gabapentin Other (see comments) Medium 08/04/2020 Dizzy, memory issue Morphine Itching,Rash Medium 02/14/2012 itchy Pregabalin Anaphylaxis High 02/16/2017 swell Wqjwgra-Ygp-Nwb Reductase Inhibitors Myalgia Low 02/13/2014 Medications Medication [...] TAKE ONE CAPSULE BY MOUTH EVERY DAY PHLEBOTOMY DIRECTOR 0 01/14/2022 Active amLODIPine (NORVASC) 5 mg [...] 04/21/2018 Restless Leg Syndrome 01/12/2018 Atherosclerosis Of [place] Ar 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 08/08/2017 Hyperlipidemia 07/22/2017 Ulcer Leg Left 04/19/2017 Ulcer Toe Left 04/19/2017 Atherosclerosis Of [place] Ar teries Of Left Leg With Ulceration Of Unspecified Site 04/19/2017 Peripheral Arterial Disease 02/16/2017 Hypertension NOS 02/16/2017 Hypertension And Chronic Kidney Disease Stage 4 09/23/2016 Overview: Hypertension (HTN) And CKD Stage 1-4 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 04/15/2023 Orders Only Division of Nephrology and Hypertension in [place], [place] [address] [place] [address] Haseeb Menon Jr., D.O. Chronic Kidney Disease Stage 5 Glomerular Filtration Rate Less Than 15 (HCC) (Primary Dx); Hypertension And Chronic Kidney Disease Stage 4 (HCC); Sleep Disorder 03/21/2023 Orders Only Division of Nephrology and Hypertension in [place], [place] [address] [place] [address] Haseeb Menon Jr., D.O. from Last 3 Months Immunizations Name Administration [...] Brother 2 Armand Heart disease Brother 2 Armnad Stroke Brother 2 Arm[place] Diabetes Brother 3 [...] week 03/24/2021 How often do you attend anglican or sikhism serv ices? Never 03/24/2021 Do you belong to any clubs o r organizations such as anglican groups, unions, fraternal or athletic groups, or [...] PHQ-2 Score 0 10/20/2018 [facility] - Occupational Stress Questionnaire Answer [...] Sex Assigned at Male 03/24/2021 8:13 PM TOSSER Gender Identity Male 08/31/2019 2:40 PM CDT [...] Lung Cancer Screening 05/07/2021 05/07/2020 COVID-19 Vaccine (2022- 4 season) 2023 10/27/2021, 04/02/2021, 08/09/2020, Additional history exists Fall Risk Screen (Annual) 05/16/2023 Hemoglobin A1C 05/28/2023 11/25/2022, 08/15, 02/10/2021, Additional history exists Creatinine Level (Kidney Fun ction Test) 02/18/2024 02/17/2023, 02/16/2023, 01/11/2023, Additional history exists Potassium Level 02/18/2024 02/17/2023, 1008/2022, 01/11/2023, Additional history exists Sodium Level 02/18/2024 02/17/2023, 100 08/2022, 01/11/2023, Additional history exists Urine Albumin 02/18/2024 02/17/2023, 04/2 08/2022, 11/04/2021, Additional history exists Office Visit for [...] history exists Medical Devices Implanted Type Area Manager Of Purchasing Device Identifier Shelf Expiration Date Model / Serial / Lot Patch Vasc Bovine.08cm X 8cm - Flores [id number] Implanted:Qty: 1 on 04/04/2017 Mesh or Patch Other/Legacy - See Implant Description Synovis Description:Device Manufactu rer - Synovis. Body Location - Other. Vascular. Device Status Text - [id number]. Ocular Lens-10/29/2007 Implanted:10/28 by Nato Zacarias APRN, C.N.P., R.N. (Quantity not on file) Ocular Lens Bilateral: Eye Description:Cataract extract ion and insertion of intraocular lens 06/22/2016 09:27 - MYROM, NATO J SPRING FLOOR SERVICE WORKER TIPPLE BOSS bilateral Conversions - Default Historical Implant Device Implanted:03/04 (Quantity not on file) Ocular Lens Right: Eye Description:Body Location - Eye R. Eye L. Eye R. Device Status Text - OculrLens. Conversions - Default Historical Implant Device Implanted:05/27 (Quantity not on file) Ocular Lens Left: Eye Description:Body Location - Eye L. Device Status Text - OculrLens. Stent Vbx [id number] - [id number] Implanted:Qty: 1 on 03/04/2017 Vascular Graft Other/Legacy - See Implant Description [place] Description:Device Manufactu rer - [employer] [place] [employer] Body Location - Other. n/a. Device Status Text - [id number]. Stent Zilver Ptx 6mm X 60mm - Flores [id number] Implanted:Qty: 1 on 04/04/2017 Vascular Stent Other/Legacy - See Implant Description [employer] Description:Device Manufactu rer - [employer]. Body Location - Other. Left. Device Status Text - [id number]. Stent Zilver Ptx 6mm X 80mm - [place] [id number] Implanted:Qty: 1 on 08/31/2017 Vascular Stent Right: Other/Legacy - See Implant Description [employer]. / [id number] / Description:Device Manufactu rer - [employer]. Body Location - Right. Device Status Text - [id number]. Stnt Innova Otw [id number] - [id number] Implanted:Qty: 1 on 04/18/2018 by Kemar Velásquez M.B.B.S. at [facility] Vascular Stent [place] [employer] 05/23/2020 [id number] / / [id number] Stnt Innova Otw [id number] - [id number] Implanted:Qty: 1 on 05/11/2019 by Kemar Velásquez M.B.B.S. at [facility] Vascular Stent Left: Leg [place] [employer] 09/05/2020 [id number] / / [id number] Advance Directives For more information, please contact: [phone] Latest Code Status on File Code Status [...] Answer Comments Full Code: Discussed Care Teams Machine Design Checker Relationship Specialty Start Date End Date Elsewhere, Pcp PCP - General Family Medicine 01/29/20
--- OUTSIDE RECORDS SUMMARY | 2023-06-15 13:28 | XMS_ITS | Encounter Summary ---
Author Name Unknown Organization [facility] Address [address] [place] [address] Care Team Providers Care Inside Sales Professional Name Role Phone Elsewhere, Pcp Primary Care Provider Unavailabl e Encounter Details Date Type Department Care Team (Late st Contact Info) Description 04/26/2023 Orders Only Division of Nephrology and Hypertension in [place], [place] [address] [place] [address] Haseeb Menon Jr., D.O. [address] [place] [address] Social History Tobacco Use Types Packs/Day Years [...] week 03/24/2021 How often do you attend muslim or samaritan serv ices? Never 03/24/2021 Do you belong to any clubs o r organizations such as muslim groups, unions, fraternal or athletic groups, or [...] your living situation today? I have [facility] place to live 10/26/2022 Education Answer Date Recorded What is the highest level of school you have completed or the highest degree you have received? 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
--- OUTSIDE RECORDS SUMMARY | 2023-06-15 13:28 | XMS_ITS ---
Author Name Unknown Organization [facility] Address [address] [place] [address] Care Team Providers Care Supervisor Electronics Processing Name Role Phone Unavailable Unavailable Unavailable Surgery Details Not on file Complications Check Surgery Details section. Procedure Estimated Blood Loss Check Surgery Details section. Procedure Findings Check Surgery Details section. Procedure Specimens Taken Check Surgery Details section.
--- OUTSIDE RECORDS SUMMARY | 2023-06-15 13:29 | XMS_ITS | Encounter Summary ---
Author Name Unknown Organization [facility] Address [address] [place] [address] Care Team Providers Care Fur Nailer Name Role Phone Elsewhere, Pcp Primary Care Provider Unavailabl e Reason for Referral * Outpatient (Routine) - Closed Specialty Diagnoses / Procedures Referred By Robi hong Referred To Contact Diagnoses Follow Up Examination Status Post Surgery Peripheral Arterial Disease (HCC) Procedures US Aorta Iliac Arteries Bilateral with Doppler Jayjay Pak P.A.-C. [address] [place] [phone] [facility] Referral ID Status Reason Start Date Expiration Date Visits Re quested Visits Authorized [id number] Closed 02/23/2022 02/23/2023 1 1 Reason for Visit * Outpatient (Routine) - Closed Specialty Diagnoses / Procedures Referred By Robi hong Referred To Contact Diagnoses Follow Up Examination Status Post Surgery Peripheral Arterial Disease (HCC) Procedures US Aorta Iliac Arteries Bilateral with Doppler Jayjay Pak P.A.-C. [address] [place] [phone] [facility] Referral ID Status Reason Start Date Expiration Date Visits Re quested Visits Authorized [id number] Closed 02/23/2022 02/23/2023 1 1 Encounter Details Date Type Department Care Team (Latest Contact Info) Description 03/03/2023 8:00 AM CDT Hospital Encounter Department of Radiology, [facility], in [place], [place] [address] [place] [address] Jayjay Pak P.A.-C. [address] [place] [address] Follow Up Examination Status Post Surgery; Peripheral [...] How often do you attend buddhism or voodoo serv ices? Never 03/24/2021 Do [...] Assigned at Male 03/24/2021 8:13 PM SENIOR POLICY ADVISOR Gender Identity Male 08/31/2019 2:40 PM CDT [...] TAKE ONE CAPSULE BY MOUTH EVERY DAY SUPPLY ROOM CLERK 0 01/14/2022 nortriptyline (PAMELOR) 50 mg capsule [...] documented as of this encounter Care Teams Fur Nailer Relationship Specialty Start Date End Date Elsewhere, Pcp PCP - General Family Medicine 01/29/20 documented as of this encounter
--- OUTSIDE RECORDS SUMMARY | 2023-06-15 13:29 | XMS_ITS | Encounter Summary ---
Author Name Unknown Organization [facility] Address [address] [place] [address] Care Team Providers Care Cable Television Access Coordinator Name Role Phone Elsewhere, Pcp Primary Care Provider Unavailabl e Encounter Details Date Type Department Care Team (Latest Contact Info) Description 03/02/2023 10:30 AM CDT Clinical Communication Virtual Review in [place], [place] [address] [place], [place] [address] Canceled Social History Tobacco Use Types Packs/Day [...] How often do you attend mu-ism or methodist serv ices? Never 03/24/2021 Do [...] Answer Date Recorded PHQ-2 Score 0 10/20/2018 [facility] [place] of Occupat ional Health - Occupational Stress [...] Sex Assigned at Male 03/24/2021 8:13 PM BOW REHAIRER Gender Identity Male 08/31/2019 2:40 PM CDT Sexual Orientation Straight 08/31/2019 2: 40 PM CDT documented as of this encounter Plan of Treatment Not on file documented as of this encounter Visit Diagnoses Not on filedocumented in this encounter Additional Health Concerns Assessment Noted Time PHQ-9 Depression Total Score: 3 01/04/20 18 10:38 AM CDT documented as of this encounter Care Teams Cable Television Access Coordinator Relationship Specialty Start Date End Date Elsewhere, Pcp PCP - General Family Medicine 01/29/20 documented as of this encounter
--- OUTSIDE RECORDS SUMMARY | 2023-06-15 13:29 | XMS_ITS | Encounter Summary ---
Author Name Unknown Organization [facility] Address [address] [place] [address] Care Team Providers Care Checker Bakery Products Name Role Phone Elsewhere, Pcp Primary Care Provider Unavailabl e Encounter Details Date Type Department Care Team (Late st Contact Info) Description 02/16/2023 10:41 AM CDT Anesthesia Event [facility] [address] [place] [address] Uriel Lin M.D. [address] [place] [address] Anesthesia Record Procedure Summary Procedure Name Responsible [...] week 03/24/2021 How often do you attend restorationist or restorationism serv ices? 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 [place], [place] Providers: Tee Celeste M.D., Ph.D. Pertinent components of the patient's history including current problem list, medical history, surgical history, family history, social history, medications and allergies were reviewed. Present illness and pre-op diagnosis were confirmed. The planned surgery / procedure was verified with the patient / legal guardian. 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 Risks/Benefits/Alternatives of Blood transfusion discussed with patient [...] Procedure Summary Date: 02/16/23 Room / Location: [address] / [facility] [place], [place] Anesthesia Start: 1041 Anesthesia Stop: Procedure: [...] Hydration status: euvolemic Norman Franklin M.D., Ph.D. Wwe Wrestler CA1 * Anesthesia Procedure Notes - Edward [...] fellow participated in the procedure, and the new home sales consultant was present for the entire [...] fellow participated in the procedure, and the new home sales consultant was present for the entire [...] documented as of this encounter Care Teams Checker Bakery Products Relationship Specialty Start Date End Date Elsewhere, Pcp PCP - General Family Medicine 01/29/20 documented as of this encounter
--- OUTSIDE RECORDS SUMMARY | 2023-06-15 13:29 | XMS_ITS | Encounter Summary ---
Author Name Unknown Organization [facility] Address [address] [place] [address] Care Team Providers Care Line Runner Name Role Phone Elsewhere, Pcp Primary Care Provider Unavailabl e Encounter Details Date Type Department Care Team (Latest Contact Info) Description 02/17/2023 9:18 AM CDT - 02/17/2023 11:59 PM CDT Hospital Encounter Department of Laboratory Medicine in [place], [place] [address] [place] [address] Haseeb Menon Jr., D.O. [address] [place] [phone] Hypertension And Chronic Kidney Disease Stage 4 [...] How often do you attend adventism or yazidism serv ices? Never 03/24/2021 Do [...] Answer Date Recorded PHQ-2 Score 0 10/20/2018 [facility] [place] of Occupat ional Health - Occupational Stress [...] your living situation today? I have a [facility] place to live 10/26/2022 Education Answer Date Recorded What is the highest level of school you have completed or the highest degree you have received? 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 [...] AM CDT 02/19/2023 4:[address] [facility] - 02/21/2023 12:00 PM CDT Specimen Information: Specimen ID: [id number] Specimen Type: Blood Specimen Collection Start Date: 02/17/2023 ??9:35 AM Specimen Received Date: 02/19/2023 ??4:15 PM Specimen ID: [id number] Specimen Type: Blood Specimen Collection Start Date: 02/17/2023 ??9:35 AM Specimen Received Date: 02/19/2023 ??4:15 PM Specimen ID: [id number] Specimen Type: Blood Specimen Collection Start Date: 02/17/2023 ??9:35 AM Specimen Received Date: 02/19/2023 ??4:15 PM Specimen ID: [id number] Specimen Type: Blood Specimen Collection Start Date: 02/17/2023 ??9:35 AM Specimen Received Date: 02/19/2023 ??4:16 PM Estiven He Jr.O. LAB MICROBIO LOGY - BLOOD ORDERABLES [facility] [address] [place] [address], [facility] in [address] [address] * HBs Antibody, Serum (02/17/2023 9:35 AM CDT) Pathologist [facility] HBs Antibody, S Negative 5:03 PM CDT [facility] Comment: ----REFERENCE VALUE---- Unvaccinated: Negative Vaccinated: Positive HBs Antibody, Quantitative, S <3.50 mIU/mL 02/17/2023 5:03 PM CDT [facility] Comment: ----REFERENCE VALUE---- <8.50: Negative 8.50-11.49: Indeterminate >=11.50: Positive Blood (Blood, Venous) 02/17/2023 9:35 AM CDT 02/17/2023 3:36 PM CDT Haseeb Menon Jr., D.O. LAB MICROBIO LOGY - BLOOD ORDERABLES Performing Organization Address [facility] Co de Phone Number [facility] [address] [place] [address], [facility] [place] [address] * Hepatitis B Surface Antigen (02/17/2023 9:35 AM CDT) [facility] HBs Antigen, S Nonreactive Nonreactive 02/17/2023 5:03 PM CDT [facility] Blood (Blood, Venous) 02/17/2023 9:35 AM CDT 02/17/2023 3:36 PM CDT Haseeb Menon Jr., D.O. LAB MICROBIO LOGY - BLOOD ORDERABLES Performing Organization Address [facility] Co de Phone Number [facility] [address] [place] [phone], [facility] [address] [place] [address] * HBc Total Ab, Serum (02/17/2023 9:35 AM CDT) Pathologist [facility] HBc Total Ab, S Negative Negative 02/19/2023 10:09 AM CDT [facility] Blood (Blood, Venous) 02/17/2023 9:35 AM CDT 02/19/2023 8:50 AM CDT Haseeb Menon Jr., D.O. LAB MICROBIO LOGY - BLOOD ORDERABLES [facility] [address] [place] [address] [facility] [address] [place] [address] * HCV Ab Scrn w/Reflex to HCV PCR, Serum (02/17/2023 9:35 AM CDT) Pathologist [facility] HCV Ab Screen, S Negative Negative 02/18/20 3:[address] [facility] Comment: Biotin has been identified by the hostel parent as a potential interfering substance. Higher concentrations of biotin may be found in multivitamins, hair/nail supplements, and workout supplements. If the result does not match clinical observations, repeat testing after patient refrains from the use of supplements for at least 12 hours. Blood (Blood, Venous) 02/17/2023 9:35 AM CDT 02/17/2023 2:20 PM CDT Narrative [facility] - 02/17/2023 3:35 PM CDT Specimen Information: Specimen ID: [id number] Specimen Type: Blood Specimen Collection Start Date: 02/17/2023 ??9:35 AM Specimen Received Date: 02/17/2023 ??2:20 PM Specimen ID: [id number] Specimen Type: Blood Specimen Collection Start Date: 02/17/2023 ??9:35 AM Specimen Received Date: 02/17/2023 ??2:16 PM Haseeb Menon Jr., D.O. LAB MICROBIO LOGY - BLOOD ORDERABLES [facility] [address] [place] [address], [facility] in [place] [address] [place] [address] * (ABNORMAL) Renal Function Panel (02/17/2023 9:35 AM CDT) Pathologist [facility] Potassium, P 4.4 3.6 - 5.2 mmol/L [...] AM CDT 02/17/2023 11:[address] [facility] - 02/17/2023 4:02 PM CDT Specimen Information: Specimen ID: [id number] Specimen Type: Blood Specimen Collection Start Date: 02/17/2023 ??9:35 AM Specimen Received Date: 02/17/2023 11:01 AM Specimen ID: [id number] Specimen Type: Blood Specimen Collection Start Date: 02/17/2023 ??9:35 AM Specimen Received Date: 02/17/2023 ??3:35 PM Haseeb Menon Jr., D.O. LAB BLOOD AD D-ON Performing Organization Address [facility] Co de Phone Number [facility] [address] [place] [address], [facility] in [place] [address] [place] [address] [facility] [address] [place] [address] * (ABNORMAL) Iron and Total Iron-Binding Capacity [...] LAB BLOOD AD D-ON Performing Organization Address [facility] de Phone Number [facility] [address] [place] [address], [facility] - [facility] [address] [place] [address] * Ferritin (02/17/2023 9:35 AM CDT) Ferritin, S 385 31 - 409 mcg/L 02/17/2023 1:16 PM CDT [facility] Comment: Biotin has been identified by the hostel parent as a potential interfering substance. Higher concentrations of biotin may be found in multivitamins, hair/nail supplements, and workout supplements. If the result does not match clinical observations, repeat testing after patient refrains from the use of supplements for at least 12 hours. Blood (Blood, Venous) 02/17/2023 9:35 AM CDT 02/17/2023 11:01 AM CDT Haseeb Menon Jr., D.O. LAB BLOOD AD D-ON [facility] [address] [place] [address], [facility] in [place] [address] [place] [address] * (ABNORMAL) CBC with Differential, Blood (02/17/2023 [...] LAB BLOOD AD D-ON Performing Organization Address City/State/[facility] Co de Phone Number [facility] [address] [place] [address], [facility] FB60 [facility] in [place] [address] [place] [address] documented in this encounter Visit Diagnoses Diagnosis Hypertension And Chronic Kidney Disease Stage 4 (HCC) 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) Anemia Of Chronic Renal Disease documented in this encounter Additional Health Concerns Assessment Noted Time PHQ-9 Depression Total Score: 3 01/04/20 18 10:38 AM CDT documented as of this encounter Care Teams Line Runner Relationship Specialty Start Date End Date Elsewhere, Pcp PCP - General Family Medicine 01/29/20 documented as of this encounter
--- OUTSIDE RECORDS SUMMARY | 2023-06-15 13:29 | XMS_ITS | Encounter Summary ---
Author Name Unknown Organization [facility] Address [address] [place] [address] Care Team Providers Care Lean Six Sigma Senior Specialist Name Role Phone Elsewhere, Pcp Primary Care Provider Unavailabl e Reason for Visit * Outpatient (Routine) - Closed Specialty Diagnoses / Procedures Referred By Robi t Referred To Contact Vascular Medicine Jayjay Pak, XiA.-CFei [address] [place] [phone] [facility] Referral ID Status Reason Start Date Expiration Date Visits Re quested Visits Authorized [id number] Closed 02/23/2022 02/22/2025 1 1 Encounter Details Date Type Department Care Team (Late st Contact Info) Description 03/03/2023 1:00 PM CDT Office Visit Department of Vascular Medicine in [place], [place] [address] [place] [phone] Jayjay Pak, PFeiAFei-CFei [address] [place] [phone] Follow Up Examination Status Post Surgery (Primary [...] How often do you attend sabianism or hinduism serv ices? Never 03/24/2021 Do [...] 0 10/20/2018 [facility] [place] of Occupat ional Health - Occupational Stress [...] your living situation today? I have a [facility] place to live 10/26/2022 Education Answer Date Recorded What is the highest level of school you have completed or the highest degree you have received? 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 He has not seen a regional account manager recently. Overall the swelling and discoloration seems [...] artery stents. LEFT: New stenosis of the [place] proximal superficial femoral artery. Widely patent mid SFA stents. Similar stenosis in the posterior tibial artery. U/S: 1. Patent bilateral iliac artery stents with unchanged stenoses on the right. 2. 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 [...] colleague's recommendations, and he will see a regional account manager. I will follow up with him in [...] documented as of this encounter Care Teams Lean Six Sigma Senior Specialist Relationship Specialty Start Date End Date Elsewhere, Pcp PCP - General Family Medicine 01/29/20 documented as of this encounter
--- OUTSIDE RECORDS SUMMARY | 2023-06-15 13:29 | XMS_ITS | Encounter Summary ---
Author Name Unknown Organization [facility] Address [address] [place] [address] Care Team Providers Care Body Specialist Name Role Phone Elsewhere, Pcp Primary Care Provider Unavailabl e Reason for Visit * Reason Comments Med Refill Encounter Details Date Type Department Care Team ([facility] st Contact Info) Description 03/13/2023 Refill Division of Nephrology and Hypertension in [place], [place] [address] [place] [address] Haseeb Menon Jr., D.O. [address] [place] [address] Med Refill Social History Tobacco Use Types [...] week 03/24/2021 How often do you attend restorationism or sikh serv ices? Never 03/24/2021 Do you belong to any clubs o r organizations such as restorationism groups, unions, fraternal or athletic groups, or [...] 0 10/20/2018 [facility] - Occupational Stress Questionnaire Answer Date [...] your living situation today? I have a [facility] place to live 10/26/2022 Education Answer Date Recorded What is the highest level of school you have completed or the highest degree you have received? 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
--- OUTSIDE RECORDS SUMMARY | 2023-06-15 13:29 | XMS_ITS | Encounter Summary ---
Author Name Unknown Organization [facility] Address [address] [place] [address] Care Team Providers Care Claims Adjuster Supervisor Name Role Phone Elsewhere, Pcp Primary Care Provider Unavailabl e Reason for Referral * Outpatient (Routine) - Closed Specialty Diagnoses / Procedures Referred By Robi hong Referred To Contact Diagnoses Follow Up Examination Status Post Surgery Peripheral Arterial Disease (HCC) Procedures Lower Extremity Arterial (MIMI) - Exercise (Claudication) Jayjay Pak P.A.-C. [address] [place] [phone] [facility] Referral ID Status Reason Start Date Expiration Date Visits Re quested Visits Authorized [id number] Closed 02/23/2022 02/23/2023 1 1 Reason for Visit * Outpatient (Routine) - Closed Specialty Diagnoses / Procedures Referred By Robi hong Referred To Contact Diagnoses Follow Up Examination Status Post Surgery Peripheral Arterial Disease (HCC) Procedures Lower Extremity Arterial (MIMI) - Exercise (Claudication) Jayjay Pak P.A.-C. [address] [place] [phone] [facility] Referral ID Status Reason Start Date Expiration Date Visits Re quested Visits Authorized [id number] Closed 02/23/2022 02/23/2023 1 1 Encounter Details Date Type Department Care Team (Latest Contact Info) Description 03/03/2023 8:01 AM CDT - 03/03/2023 8:20 AM CDT Hospital Encounter Department of Vascular Medicine in [place], [place] [address] [place] [address] Jayjay Pak P.A.-C. [address] [place] [address] Follow Up Examination Status Post Surgery; Peripheral [...] How often do you attend mandaeism or zoroastrianism serv ices? 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
--- OUTSIDE RECORDS SUMMARY | 2023-06-15 13:29 | XMS_ITS | Encounter Summary ---
Author Name Unknown Organization [facility] Address [address] [place] [address] Care Team Providers Care Installations Inspector Name Role Phone Elsewhere, Pcp Primary Care Provider Unavailabl e Reason for Referral * Outpatient (Routine) - Closed Specialty Diagnoses / Procedures Referred By Robi hong Referred To Contact Diagnoses Follow Up Examination Status Post Surgery Peripheral Arterial Disease (HCC) Procedures US Lower Extremity Arteries Bilateral US Lower Extremity Artery Graft Bilateral Jayjay Pak P.A.-C. [address] [place] [phone] [facility] Referral ID Status Reason Start Date Expiration Date Visits Re quested Visits Authorized [id number] Closed 02/23/2022 02/23/2023 1 1 Reason for Visit * Outpatient (Routine) - Closed Specialty Diagnoses / Procedures Referred By Robi hong Referred To Contact Diagnoses Follow Up Examination Status Post Surgery Peripheral Arterial Disease (HCC) Procedures US Lower Extremity Arteries Bilateral US Lower Extremity Artery Graft Bilateral Jayjay Pak P.A.-C. [address] [place] [phone] [facility] Referral ID Status Reason Start Date Expiration Date Visits Re quested Visits Authorized [id number] Closed 02/23/2022 02/23/2023 1 1 Encounter Details Date Type Department Care Team (Latest Contact Info) Description 03/03/2023 8:21 AM CDT - 03/03/2023 11:59 PM CDT Hospital Encounter Department of Radiology, [facility], in [place], [place] [address] [place] [address] Jayjay Pak P.A.-C. [address] [place] [address] Follow Up Examination Status Post Surgery; Peripheral [...] often do you attend latter day or roman catholic serv ices? Never 03/24/2021 Do you belong [...] Date Recorded PHQ-2 Score 0 10/20/2018 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 LEFT: New stenosis of the [place] proximal superficial femoral artery. Widely patent mid [...] femoral: New elevated Doppler velocities in the [place] proximal vessel (up to 166 cm/sec), consistent [...] artery stents. LEFT: New stenosis of the [place] proximal superficial femoral artery.Widely patent mid SFA [...] documented as of this encounter Care Teams Installations Inspector Relationship Specialty Start Date End Date Elsewhere, Pcp PCP - General Family Medicine 01/29/20 documented as of this encounter
--- OUTSIDE RECORDS SUMMARY | 2023-06-15 13:29 | XMS_ITS | Encounter Summary ---
Author Name Unknown Organization [facility] Address [address] [place] [address] Care Team Providers Care Universal Grinder Tool Name Role Phone Elsewhere, Pcp Primary Care Provider Unavailabl e Encounter Details Date Type Department Care Team (Latest Contact Info) Description 02/17/2023 9:18 AM CDT - 02/17/2023 11:59 PM CDT Hospital Encounter Department of Laboratory Medicine in [place], [place] [address] [place] [address] Haseeb Menon Jr., D.O. [address] [place] [phone] Hypertension And Chronic Kidney Disease Stage 4 [...] How often do you attend faith or latter day serv ices? Never 03/24/2021 [...] Answer Date Recorded PHQ-2 Score 0 10/20/2018 [facility] [place] of Occupat ional Health - Occupational Stress [...] your living situation today? I have a [facility] place to live 10/26/2022 Education Answer Date Recorded What is the highest level of school you have completed or the highest degree you have received? 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 LAB URINE OR DERABLES [facility] [address] [place] [address], [facility] in [place] [address] [place] [address] * (ABNORMAL) Urinalysis with Microscopic: Urine, Voided [...] 8.0 02/17/2023 10:03 AM CDT [facility] [place] 1.015 1.001 - 1.035 02/17/2023 10:03 AM [...] Menon Jr., D.OFei LAB URINE OR DERABLES [facility] [address] [place] [address], [facility] FB60 [facility] in [place] [address] [place] [address] documented in this encounter Visit Diagnoses Diagnosis Hypertension And Chronic Kidney Disease Stage 4 (HCC) 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) Anemia Of Chronic Renal Disease documented in this encounter Additional Health Concerns Assessment Noted Time PHQ-9 Depression Total Score: 3 01/04/20 18 10:38 AM CDT documented as of this encounter Care Teams Universal Grinder Tool Relationship Specialty Start Date End Date Elsewhere, Pcp PCP - General Family Medicine 01/29/20 documented as of this encounter
--- OUTSIDE RECORDS SUMMARY | 2023-06-15 13:29 | XMS_ITS | Encounter Summary ---
Author Name Unknown Organization [facility] Address [address] [place] [address] Care Team Providers Care Door Person Name Role Phone Elsewhere, Pcp Primary Care Provider Unavailabl e Encounter Details Date Type Department Care Team (Late st Contact Info) Description 02/16/2023 Orders Only Division of Endocrinology in [place], [place] [address] [place] [phone] Martina Da Silva, JULIÁN, C.N.P. [address] [place] [address] Social History Tobacco Use Types Packs/Day Years [...] How often do you attend scientologist or presybeterian serv ices? Never 03/24/2021 Do you belong [...] Answer Date Recorded PHQ-2 Score 0 10/20/2018 [facility] of Occupat ional Health - [...] your living situation today? I have a [facility] place to live 10/26/2022 Education Answer Date Recorded What is the highest level of school you have completed or the highest degree you have received? 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
--- OUTSIDE RECORDS SUMMARY | 2023-06-15 13:30 | XMS_ITS | Encounter Summary ---
Author Name Unknown Organization [facility] Address [address] [place] [address] Care Team Providers Care Observation Nurse Name Role Phone Elsewhere, Pcp Primary Care Provider Unavailabl e Encounter Details Date Type Department Care Team (Latest Contact Info) Description 02/14/2023 10:18 AM CDT - 02/14/2023 11:59 PM CDT Hospital Encounter Department of Laboratory Medicine in [place], [place] [address] [place] [address] Haseeb Menon Jr., D.O. [address] [place] [phone] Diabetes Mellitus Type 2 With Other Circulatory [...] week 03/24/2021 How often do you attend alevism or pentecostalism serv ices? Never 03/24/2021 Do you belong to any clubs o r organizations such as alevism groups, unions, fraternal or athletic groups, or [...] Answer Date Recorded PHQ-2 Score 0 10/20/2018 [facility] [place] of Occupat ional Health - Occupational Stress [...] your living situation today? I have a [facility] place to live 10/26/2022 Education Answer Date Recorded What is the highest level of school you have completed or the highest degree you have received? 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/2021 8:13 PM DRILLER BRAKE LINING Gender Identity Male 08/31/2019 2:40 PM CDT [...] TAKE ONE CAPSULE BY MOUTH EVERY DAY TRANSPORTATION DESIGN ENGINEER 0 01/14/2022 nortriptyline (PAMELOR) 50 mg capsule [...] Comment: Biotin has been identified by the automobile bumper straightener as a potential interfering substance. Higher concentrations of biotin may be found in multivitamins, hair/nail supplements, and workout supplements. If the result does not match clinical observations, repeat testing after patient refrains from the use of supplements for at least 12 hours. Blood (Blood, Venous) 02/14/2023 11:09 AM CDT 02/14/2023 3:29 PM CDT Narrative [facility] - 02/14/2023 3:29 PM CDT Specimen Information: Specimen ID: [id number] Specimen Type: Blood Specimen Collection Start Date: 02/14/2023 11:09 AM Specimen Received Date: 02/14/2023 ??3:29 PM Specimen ID: [id number] Specimen Type: Blood Specimen Collection Start Date: 02/14/2023 11:09 AM Specimen Received Date: 02/14/2023 ??2:48 PM Haseeb Menon Jr., D.O. LAB MICROBIO LOGY - BLOOD ORDERABLES [facility] [address] [place] [address], [place] [facility] [place] [address] [place] [address] * HBc Total Ab, Serum (02/14/2023 11:09 AM CDT) HBc Total Ab, S Negative Negative 02/15/2023 9:08 AM CDT [place] Blood (Blood, Venous) 02/14/2023 11:09 AM CDT 02/15/2023 6:57 AM CDT Haseeb Menon Jr., D.O. LAB MICROBIO LOGY - BLOOD ORDERABLES Performing Organization Address City/[facility]/ZIP Co de Phone Number [facility] [address] [place] [address] [facility] [address] [place] [address] * HBs Antibody, Serum (02/14/2023 11:09 AM [...] D.O. LAB MICROBIO LOGY - BLOOD ORDERABLES [facility] [address] [place] [address], [facility] [address] [place] [address] * Hepatitis B Surface Antigen (02/14/2023 11:09 AM CDT) [facility] HBs Antigen, S Nonreactive Nonreactive 02/14/2023 4:34 PM CDT [facility] Blood (Blood, Venous) 02/14/2023 11:09 AM CDT 02/14/2023 3:28 PM CDT Haseeb Menon Jr., D.O. LAB MICROBIO LOGY - BLOOD ORDERABLES [facility] [address] [place] [address], [facility] - [address] [address] * QuantiFERON-Tb Gold Plus, Blood (02/14/2023 11:09 AM CDT) [facility] QuantiFERON-TB Gold Plus Result Negative Negative 02/17/2023 [...] AM CDT 02/16/2023 11:08 AM CDT Narrative [facility] - 02/17/2023 12:53 PM CDT Specimen Information: Specimen ID: [id number] Specimen Type: Blood Specimen Collection Start Date: 02/14/2023 11:09 AM Specimen Received Date: 02/16/2023 11:08 AM Specimen ID: [id number] Specimen Type: Blood Specimen Collection Start Date: 02/14/2023 11:09 AM Specimen Received Date: 02/16/2023 11:08 AM Specimen ID: [id number] Specimen Type: Blood Specimen Collection Start Date: 02/14/2023 11:09 AM Specimen Received Date: 02/16/2023 11:08 AM Specimen ID: [id number] Specimen Type: Blood Specimen Collection Start Date: 02/14/2023 11:09 AM Specimen Received Date: 02/16/2023 11:08 AM Haseeb Menon Jr. DFeiO. LAB MICROBIO LOGY - BLOOD ORDERABLES [facility] [address] [place] [address], [facility] [place] [address] documented in this encounter Visit Diagnoses Diagnosis Diabetes Mellitus Type 2 With Other Circulatory Complication Hyperglycemic (HCC) Hypertension And Chronic Kidney Disease Stage 4 (HCC) documented in this encounter Additional Health Concerns Assessment Noted Time PHQ-9 Depression Total Score: 3 01/04/20 18 10:38 AM CDT documented as of this encounter Care Teams Observation Nurse Relationship Specialty Start Date End Date Elsewhere, Pcp PCP - General Family Medicine 01/29/20 documented as of this encounter
--- OUTSIDE RECORDS SUMMARY | 2023-06-15 13:30 | XMS_ITS | Encounter Summary ---
Author Name Unknown Organization [facility] Address [address] [place] [address] Care Team Providers Care Lifestyle Coordinator Name Role Phone Elsewhere, Pcp Primary Care Provider Unavailabl e Encounter Details Date Type Department Care Team (Latest Contact Info) Description 02/16/2023 7:12 AM CDT - 02/16/2023 6:10 PM CDT Hospital Encounter Outpatient Surgery Unit in [place], [place] [address] [place] [address] Tee Celeste M.D., Ph.D. [address] [place] [phone] Discharge Disposition: Home or Self Care Social [...] How often do you attend anabaptism or adventism serv ices? Never 03/24/2021 Do [...] Answer Date Recorded PHQ-2 Score 0 10/20/2018 [facility] of Occupat ional Health - Occupational [...] your living situation today? [facility] 10/26/2022 Education Answer Date Recorded What is the highest level of school you have completed or the highest degree you have received? 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/2021 8:13 PM RESEARCH LABORATORY MANAGER Gender Identity Male 08/31/2019 2:40 PM [...] TAKE ONE CAPSULE BY MOUTH EVERY DAY FINE ARTS PACKER 0 01/14/2022 nortriptyline (PAMELOR) 50 mg [...] Filtration Rate Less Than 15 (HCC) A assistant to the president actively participated and was necessary for one [...] LAB POCT ORDERABLES- MANUAL Performing Organization Address City/[facility]/ZIP Co de Phone Number POC [employer] [facility] [address] [place], [place] [address] PCDE [facility] POC [address] [place] [address] * (ABNORMAL) Glucose, POCT (02/16/2023 3:15 PM CDT) Glucose, POCT, B 191(H) 70 - 140 mg/dL 02/16/2023 3:17 PM CDT PCDE Site Capillary 02/16/2023 3:17 PM CDT PCDE Blood 02/16/2023 3:15 PM CDT 02/16/2023 3:17 PM CDT Unknown Provider LAB POCT ORDERABLES- MANUAL Performing Organization Address City/[facility] Co de Phone Number POC [employer] [facility] [address] [place] [address], [facility] PCDE [facility] POC [address] [place] [address] * DX Abdomen Portable Anterior Posterior 1 [...] LAB POCT ORDERABLES- MANUAL Performing Organization Address City/[facility]/ZIP Co de Phone Number POC [employer] [facility] [address] [place] [address], [facility] PCDE [facility] POC [address] [place] [address] * (ABNORMAL) Phosphorus Inorganic (02/16/2023 1:04 PM CDT) [facility] Phosphorus (Inorganic), S 6.2(H) 2.5 - 4.5 mg/dL 02/16/2023 1:58 PM CDT DTL Blood (Blood, Venous) 02/16/2023 1:04 PM CDT 02/16/2023 1:41 PM CDT Uriel Lin M.D. LAB BLOOD ADD-ON [facility] [address] [place] [address], [facility] DTL [facility] [address] [place] [address] * (ABNORMAL) CBC without Differential (02/16/2023 1:04 PM CDT) Pathologist [facility] Hemoglobin 8.7(L) 13.2 - 16.6 g/dL 02/16/2023 [...] CDT Uriel Lin M.D. LAB BLOOD ADD-ON [facility] [address] [address], [facility] METH [facility] [address] [place] [address] * (ABNORMAL) Basic Metabolic Panel (02/16/2023 1:04 PM CDT) [facility] Potassium, P 3.6 3.6 - 5.2 [...] M.D. LAB BLOOD ADD-ON Performing Organization Address City/[facility]/ZIP Co de Phone Number [facility] [address] [place] [address], [facility] METH [facility] [address] [place] [address] * Glucose, POCT (02/16/2023 12:04 PM CDT) Glucose, POCT, B 108 70 - 140 mg/dL 02/16/2023 12:07 PM CDT PCDE Site Capillary 02/16/2023 12:07 PM CDT PCDE Blood 02/16/2023 12:0 4 PM CDT 02/16/2023 12:07 PM CDT Unknown Provider LAB POCT ORDERABLES- MANUAL [facility] [address] [place] [address], [facility] PCDE [facility] POC [address] [place] [address] * Glucose, POCT (02/16/2023 10:23 AM CDT) Glucose, POCT, B 112 70 - 140 mg/dL 02/16/2023 10:33 AM CDT PCDE Site Capillary 02/16/2023 10:33 AM CDT PCDE Blood 02/16/2023 10:2 3 AM CDT 02/16/2023 10:33 AM CDT Unknown Provider LAB POCT ORDERABLES- MANUAL [facility] [employer] [facility] [address] [place] [address], [facility] PCDE [facility] POC [address] [place] [address] * Glucose, POCT (02/16/2023 8:23 AM CDT) [facility] Signature Glucose, POCT, B 106 70 - 140 mg/dL 02/16/2023 8:24 AM CDT PCDE Blood 02/16/2023 8:23 AM CDT 02/16/2023 8:25 AM CDT Unknown Provider LAB POCT ORDERABLES- MANUAL Performing Organization Address City/[facility] Co de Phone Number POC [employer] [facility] [address] [place] [address], [facility] PCDE [facility] POC [address] [place] [address] documented in this encounter Visit Diagnoses Diagnosis [...] (Given - Provid er: Glenn Sarabia APRN, METER TESTER) insulin aspart U-100 injection 2 Units (NovoLOG [...] documented as of this encounter Care Teams Lifestyle Coordinator Relationship Specialty Start Date End Date Elsewhere, Pcp PCP - General Family Medicine 01/29/20 documented as of this encounter
--- OUTSIDE RECORDS SUMMARY | 2023-06-15 13:30 | XMS_ITS | Encounter Summary ---
Author Name Unknown Organization [facility] Address [address] [place] [address] Care Team Providers Care Automobile Radiator Mechanic Name Role Phone Elsewhere, Pcp Primary Care Provider Unavailabl e Encounter Details Date Type Department Care Team (Late st Contact Info) Description 02/08/2023 Documentation Division of Nephrology and Hypertension in [place], [place] [address] [place] [address] Haseeb Menon Jr., D.O. [address] [place] [address] Social History Tobacco Use Types Packs/Day Years [...] How often do you attend jewish or spiritism serv ices? Never 03/24/2021 Do [...] PHQ-2 Score 0 10/20/2018 [facility] - Occupational Stress Questionnaire Answer Date [...] situation today? I have a [facility] place to live 10/26/2022 Education Answer Date Recorded What is the highest level of school you have completed or the highest degree you have received? 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/2021 8:13 PM FLOOR CLERK Gender Identity Male 08/31/2019 2:40 PM [...] as of this encounter Care Teams Automobile Radiator Mechanic Relationship Specialty Start Date End Date Elsewhere, Pcp PCP - General Family Medicine 01/29/20 documented as of this encounter
--- OUTSIDE RECORDS SUMMARY | 2023-06-15 13:30 | XMS_ITS | Encounter Summary ---
Author Name Unknown Organization [facility] Address [address] [place] [address] Care Team Providers Care Email Production Consultant Name Role Phone Elsewhere, Pcp Primary Care Provider Unavailabl e Reason for Visit * Reason Comments Med Refill Encounter Details Date Type Department Care Team (Late st Contact Info) Description 01/30/2023 Refill Division of Nephrology and Hypertension in [place], [place] [address] [place] [address] Farrah Barnes M.D., Ph.D. [address] [place] [address] Med Refill Social History Tobacco Use Types [...] How often do you attend sikhism or latter day serv ices? Never 03/24/2021 [...] 0 10/20/2018 [facility] of Occupat ional [facility] [...] living situation today? I have a [facility] place to live 10/26/2022 Education Answer Date Recorded What is the highest level of school you have completed or the highest degree you have received? 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/2021 8:13 PM CORE DRILL OPERATOR Gender Identity Male 08/31/2019 2:40 PM [...] documented as of this encounter Care Teams Email Production Consultant Relationship Specialty Start Date End Date Elsewhere, Pcp PCP - General Family Medicine 01/29/20 documented as of this encounter
--- OUTSIDE RECORDS SUMMARY | 2023-06-15 13:30 | XMS_ITS | Encounter Summary ---
Author Name Unknown Organization [facility] Address [address] [place] [address] Care Team Providers Care Wage Conciliator Name Role Phone Elsewhere, Pcp Primary Care Provider Unavailabl e Encounter Details Date Type Department Care Team (Latest Contact Info) Description 01/11/2023 8:19 AM CDT - 01/11/2023 11:59 PM CDT Hospital Encounter Department of Laboratory Medicine in [place], [place] [address] [place] [address] Haseeb Menon Jr., D.O. 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 Never 03/24/2021 Do [...] Answer Date Recorded PHQ-2 Score 0 10/20/2018 [facility] [place] of Occupat ional Health - Occupational Stress [...] your living situation today? I have a [facility] place to live 10/26/2022 Education Answer Date Recorded What is the highest level of school you have completed or the highest degree you have received? 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) Anemia Of Chronic Renal Disease Acidosis Metabolic Hyperchloremic Atherosclerosis Of [place] Arteries Of Extremities With Intermittent Claudication Right [...] 8:30 AM CDT 01/11/2023 11:00 AM CDT [facility] - 01/11/2023 3:02 PM CDT Specimen Information: Specimen ID: [id number] Specimen Type: Blood Specimen Collection Start Date: 01/11/2023 ??8:30 AM Specimen Received Date: 01/11/2023 11:00 AM Specimen ID: [id number] Specimen Type: Blood Specimen Collection Start Date: 01/11/2023 ??8:30 AM Specimen Received Date: 01/11/2023 ??2:35 PM Haseeb Menon Jr., D.O. LAB BLOOD AD D-ON [facility] [address] [place] [address], [facility] in [employer] [address] [place] [address] [facility] [address] [place] [address] * (ABNORMAL) CBC with Differential, Blood (01/11/2023 8:30 AM CDT) Pathologist [facility] Hemoglobin 8.6(L) 13.2 - 16.6 g/dL 01/11/2023 [...] Menon Jr. D.O. 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
--- OUTSIDE RECORDS SUMMARY | 2023-06-15 13:30 | XMS_ITS | Encounter Summary ---
Author Name Unknown Organization [facility] Address [address] [place] [address] Care Team Providers Care Hearse Driver Name Role Phone Elsewhere, Pcp Primary Care Provider Unavailabl e Encounter Details Date Type Department Care Team (Late st Contact Info) Description 02/16/2023 10:36 AM CDT - 02/16/2023 12:35 PM CDT Surgery [facility] [address] [place] [address] Tee Celeste M.D., Ph.D. [address] [place] [address] INSERTION Peritoneal DIALYSIS CATHETER Social History Tobacco [...] How often do you attend mandaeism or uatsdin serv ices? Never 03/24/2021 Do [...] Score 0 10/20/2018 [facility] - Occupational Stress Questionnaire Answer Date [...] Sex Assigned at Male 03/24/2021 8:13 PM CREAM RIPENER Gender Identity Male 08/31/2019 2:40 PM CDT [...] TAKE ONE CAPSULE BY MOUTH EVERY DAY CERTIFIED NUCLEAR MEDICINE TECHNOLOGIST 0 01/14/2022 nortriptyline (PAMELOR) 50 mg capsule [...] Filtration Rate Less Than 15 (HCC) A assisted living assistant actively participated and was necessary for [...] LAB POCT ORDERABLES- MANUAL Performing Organization Address City/[facility] Co de Phone Number POC [employer] [facility] [address] [place] [address], [facility] PCDE [facility] POC [address] [place] [address] * (ABNORMAL) Glucose, POCT (02/16/2023 3:15 PM CDT) [facility] Glucose, POCT, B 191(H) 70 - 140 mg/dL 02/16/2023 3:17 PM CDT PCDE Site Capillary 02/16/2023 3:17 PM CDT PCDE Blood 02/16/2023 3:15 PM CDT 02/16/2023 3:17 PM CDT Unknown Provider LAB POCT ORDERABLES- MANUAL Performing Organization Address City/[facility] Co de Phone Number POC [employer] [facility] [address] [place] [address], [facility] PCDE [facility] POC [address] [place] [address] * DX Abdomen Portable Anterior Posterior 1 [...] POCT (02/16/2023 2:15 PM CDT) Pathologist [facility] Glucose, POCT, B 173(H) 70 - 140 mg/dL 02/16/2023 2:17 PM CDT PCDE Site Capillary 02/16/2023 2:17 PM CDT PCDE Blood 02/16/2023 2:15 PM CDT 02/16/2023 2:17 PM CDT Unknown Provider LAB POCT ORDERABLES- MANUAL Performing Organization Address City/[facility]/ZIP Co de Phone Number POC [employer] [facility] [address] [facility] POC [address] [place] [address] * (ABNORMAL) Phosphorus Inorganic (02/16/2023 1:04 PM CDT) [facility] Phosphorus (Inorganic), S 6.2(H) 2.5 - 4.5 mg/dL 02/16/2023 1:58 PM CDT DTL Blood (Blood, Venous) 02/16/2023 1:04 PM CDT 02/16/2023 1:41 PM CDT Uriel Lin M.D. LAB BLOOD ADD-ON Performing Organization Address City/[facility]/ZIP Co de Phone Number [facility] [address] [place] [address], [facility] [place]note 2] [address] [place] [address] * (ABNORMAL) CBC without Differential (02/16/2023 1:04 PM CDT) [facility] Hemoglobin 8.7(L) 13.2 - 16.6 g/dL 02/16/2023 [...] CDT Uriel Lin M.D. LAB BLOOD ADD-ON [facility] [address] [place] [address], [facility] METH [facility] [address] [place] [address] * (ABNORMAL) Basic Metabolic Panel (02/16/2023 1:04 [...] CDT Uriel Lin M.D. LAB BLOOD ADD-ON [facility] [address] [place] [address], [facility] METH [facility] [address] [place] [address] * Glucose, POCT (02/16/2023 12:04 PM CDT) Glucose, POCT, B 108 70 - 140 mg/dL 02/16/2023 12:07 PM CDT PCDE Site Capillary 02/16/2023 12:07 PM CDT PCDE Blood 02/16/2023 12:0 4 PM CDT 02/16/2023 12:07 PM CDT Unknown Provider LAB POCT ORDERABLES- MANUAL [facility]OC [employer] [facility] [address] [place] [address], [facility] PCDE [facility] POC [address] [place] [address] * Glucose, POCT (02/16/2023 10:23 AM CDT) Glucose, POCT, B 112 70 - 140 mg/dL 02/16/2023 10:33 AM CDT PCDE Site Capillary 02/16/2023 10:33 AM CDT PCDE Blood 02/16/2023 10:2 3 AM CDT 02/16/2023 10:33 AM CDT Unknown Provider LAB POCT ORDERABLES- MANUAL [facility] [employer] [address] [place] [address], [facility] PCDE [facility] POC [address] [place] [address] * Glucose, POCT (02/16/2023 8:23 AM CDT) Glucose, POCT, B 106 70 - 140 mg/dL 02/16/2023 8:24 AM CDT PCDE Blood 02/16/2023 8:23 AM CDT 02/16/2023 8:25 AM CDT Unknown Provider LAB POCT ORDERABLES- MANUAL Performing Organization Address City/[facility] Co de Phone Number POC [facility] [address] [place] [address], [facility] PCDE [facility] POC [address] [place] [address] documented in this encounter Visit Diagnoses Diagnosis [...] 1114 (Given - Provid er: Glenn Sarabia, MUFFLE OPERATOR, SR COMMUNITY MANAGER) insulin aspart U-100 injection 2 Units (NovoLOG [...] documented as of this encounter Care Teams Hearse Driver Relationship Specialty Start Date End Date Elsewhere, Pcp PCP - General Family Medicine 01/29/20 documented as of this encounter
--- OUTSIDE RECORDS SUMMARY | 2023-06-15 13:30 | XMS_ITS | Encounter Summary ---
Author Name Unknown Organization [facility] Address [address] [place] [address] Care Team Providers Care Gameplay Programmer Name Role Phone Elsewhere, Pcp Primary Care Provider Unavailabl e Encounter Details Date Type Department Care Team (Late st Contact Info) Description 02/08/2023 Orders Only Division of Nephrology and Hypertension in [place], [place] [address] [place] [address] Haseeb Menon Jr., D.O. [address] [place] [address] Diabetes Mellitus Type 2 With Other Circulatory [...] often do you attend oriental orthodox or sabianism serv ices? Never 03/24/2021 Do [...] living situation today? I have a [facility] place to live 10/26/2022 Education Answer Date Recorded What is the highest level of school you have completed or the highest degree you have received? 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 Higher concentrations of biotin may be found in multivitamins, hair/nail supplements, and workout supplements. If the result does not match clinical observations, repeat testing after patient refrains from the use of supplements for at least 12 hours. Blood (Blood, Venous) 02/14/2023 11:09 AM CDT 02/14/2023 3:29 PM CDT Narrative [facility] - 02/14/2023 3:29 PM CDT Specimen Information: Specimen ID: [id number] Specimen Type: Blood Specimen Collection Start Date: 02/14/2023 11:09 AM Specimen Received Date: 02/14/2023 ??3:29 PM Specimen ID: [id number] Specimen Type: Blood Specimen Collection Start Date: 02/14/2023 11:09 AM Specimen Received Date: 02/14/2023 ??2:48 PM Haseeb Menon Jr., D.O. LAB MICROBIO LOGY - BLOOD ORDERABLES Performing Organization Address City/[facility]/ZIP [place] [address], [facility] [place] [address] [place] [address] * HBc Total Ab, Serum (02/14/2023 11:09 AM CDT) Pathologist [facility] HBc Total Ab, S Negative Negative 02/15/2023 9:08 AM CDT [facility] Blood (Blood, Venous) 02/14/2023 11:09 AM CDT 02/15/2023 6:57 AM CDT Haseeb Menon Jr., D.O. LAB MICROBIO LOGY - BLOOD ORDERABLES [facility] [address] [place] [address] [facility] [address] [place] [address] * HBs Antibody, Serum (02/14/2023 11:09 AM CDT) Pathologist [facility] HBs Antibody, S Negative 4:34 PM CDT [facility] Comment: ----REFERENCE VALUE---- Unvaccinated: Negative Vaccinated: Positive HBs Antibody, Quantitative, S <3.50 mIU/mL 02/14/2023 4:34 PM CDT [facility] Comment: ----REFERENCE VALUE---- <8.50: Negative 8.50-11.49: Indeterminate >=11.50: Positive Blood (Blood, Venous) 02/14/2023 11:09 AM CDT 02/14/2023 3:28 PM CDT Haseeb Menon Jr., D.O. LAB MICROBIO LOGY - BLOOD ORDERABLES Performing Organization Address [facility]/ZIP Co de Phone Number [facility] [address] [place] [address], [facility] [place] [address] * Hepatitis B Surface Antigen (02/14/2023 11:09 AM CDT) Pathologist [facility] HBs Antigen, S Nonreactive Nonreactive 02/14/2023 4:34 PM CDT [facility] Blood (Blood, Venous) 02/14/2023 11:09 AM CDT 02/14/2023 3:28 PM CDT Haseeb Menon Jr., D.O. LAB MICROBIO LOGY - BLOOD ORDERABLES Performing Organization Address [facility] Co de Phone Number [facility] [address] [place] [address], [facility] [place] [address] * QuantiFERON-Tb Gold Plus, Blood (02/14/2023 11:09 AM CDT) Pathologist [facility] QuantiFERON-TB Gold Plus Result Negative Negative 02/17/2023 [...] 11:09 AM CDT 02/16/2023 11:08 AM CDT [facility] - 02/17/2023 12:53 PM CDT Specimen Information: Specimen ID: [id number] Specimen Type: Blood Specimen Collection Start Date: 02/14/2023 11:09 AM Specimen Received Date: 02/16/2023 11:08 AM Specimen ID: [id number] Specimen Type: Blood Specimen Collection Start Date: 02/14/2023 11:09 AM Specimen Received Date: 02/16/2023 11:08 AM Specimen ID: [id number] Specimen Type: Blood Specimen Collection Start Date: 02/14/2023 11:09 AM Specimen Received Date: 02/16/2023 11:08 AM Specimen ID: [id number] Specimen Type: Blood Specimen Collection Start Date: 02/14/2023 11:09 AM Specimen Received Date: 02/16/2023 11:08 AM Estiven He Jr.O. LAB MICROBIO LOGY - BLOOD ORDERABLES [facility] [address] [place] [address], [facility] in [address] [address] documented in this encounter Visit Diagnoses Diagnosis [...] documented as of this encounter Care Teams Gameplay Programmer Relationship Specialty Start Date End Date Elsewhere, Pcp PCP - General Family Medicine 01/29/20 documented as of this encounter
--- OUTSIDE RECORDS SUMMARY | 2023-06-15 13:30 | XMS_ITS | Encounter Summary ---
Author Name Unknown Organization [facility] Address [address] [place] [address] Care Team Providers Care Nail Assembly Machine Operator Name Role Phone Elsewhere, Pcp [...] 2 Views Haseeb Menon Jr., D.O. [address] [place] [address] [facility] Region Referral ID Status Reason Start Date Expiration Date V isits Requested Visits Authorized [id number] Authorized 01/18/2023 01/18/2024 1 1 * Outpatient (Routine) - Authorized Specialty Diagnoses / Procedures Referred By Contac t Referred To Contact Diagnoses Hypertension And Chronic Kidney Disease Stage 4 (HCC) 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) Anemia Of Chronic Renal Disease Procedures ECG 12 Lead Haseeb Menon Jr., D.O. [address] [place] [address] [facility] Region Referral ID Status Reason Start Date Expiration Date V isits Requested Visits Authorized [id number] Authorized 01/18/2023 01/18/2024 1 1 Reason for Visit * Appointment Request (Routine) - Closed Specialty Diagnoses / Procedures Referred By Robi hong Referred To Contact Nephrology and Hypertension Referral ID Status Reason Start Date Expiration Date Visits Re quested Visits Authorized [id number] Closed 01/06/2023 01/06/2024 1 1 Encounter Details Date Type Department Care Team (Latest Contact Info) Description 01/18/2023 10:00 AM CDT External Outreach Division of Nephrology and Hypertension in [place], [place] [address] [place] [address] Haseeb Menon Jr., D.O. [address] [place] [address] Hypertension And Chronic Kidney Disease Stage 4 [...] week 03/24/2021 How often do you attend hinduism or congregation serv ices? 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 When he appeared for [...] TAKE ONE CAPSULE BY MOUTH EVERY DAY MARINE INSULATOR, Disp: , Rfl: nortriptyline (PAMELOR) 50 mg [...] and CONNER approach 7. Coordinate care with [facility] dialysis team-e-mail sent #2 Diabetes Mellitus [...] Gold Plus, Blood (02/17/2023 9:35 AM CDT) [facility] QuantiFERON-TB Gold Plus Result Negative Negative 02/21/2023 [...] CDT 02/19/2023 4:[address] [facility] - 02/21/2023 12:00 PM CDT Specimen Information: Specimen ID: [id number] Specimen Type: Blood Specimen Collection Start Date: 02/17/2023 ??9:35 AM Specimen Received Date: 02/19/2023 ??4:15 PM Specimen ID: [id number] Specimen Type: Blood Specimen Collection Start Date: 02/17/2023 ??9:35 AM Specimen Received Date: 02/19/2023 ??4:15 PM Specimen ID: [id number] Specimen Type: Blood Specimen Collection Start Date: 02/17/2023 ??9:35 AM Specimen Received Date: 02/19/2023 ??4:15 PM Specimen ID: [id number] Specimen Type: Blood Specimen Collection Start Date: 02/17/2023 ??9:35 AM Specimen Received Date: 02/19/2023 ??4:16 PM Haseeb Menon Jr., D.O. LAB MICROBIO LOGY - BLOOD ORDERABLES [facility] [address] [place] [address], [facility] [address] * HBs Antibody, Serum (02/17/2023 9:35 AM CDT) [facility] HBs Antibody, S Negative 5:03 PM CDT [facility] Comment: ----REFERENCE VALUE---- Unvaccinated: Negative Vaccinated: Positive HBs Antibody, Quantitative, S <3.50 mIU/mL 02/17/2023 5:03 PM CDT [facility] Comment: ----REFERENCE VALUE---- <8.50: Negative 8.50-11.49: Indeterminate >=11.50: Positive Blood (Blood, Venous) 02/17/2023 9:35 AM CDT 02/17/2023 3:36 PM CDT Haseeb Menon Jr., D.O. LAB MICROBIO LOGY - BLOOD ORDERABLES Performing Organization Address [facility] Co de Phone Number [id number] [place] [address] - [address] [address] * Hepatitis B Surface Antigen (02/17/2023 9:35 AM CDT) HBs Antigen, S Nonreactive Nonreactive 02/17/2023 5:03 PM CDT [facility] Blood (Blood, Venous) 02/17/2023 9:35 AM CDT 02/17/2023 3:36 PM CDT Haseeb Menon Jr., D.O. LAB MICROBIO LOGY - BLOOD ORDERABLES Performing Organization Address [facility] Co de Phone Number [facility] [address] [place] [address], [address] [address] * HBc Total Ab, Serum (02/17/2023 9:35 AM CDT) HBc Total Ab, S Negative Negative 02/19/2023 10:09 AM CDT [facility] Blood (Blood, Venous) 02/17/2023 9:35 AM CDT 02/19/2023 8:50 AM CDT Haseeb Menon Jr., D.O. LAB MICROBIO LOGY - BLOOD ORDERABLES Performing Organization Address City/[facility]/ZIP Co de Phone Number [facility] [address] [place] [address] [facility] [address] [place] [address] * HCV Ab Scrn w/Reflex to HCV PCR, Serum (02/17/2023 9:35 AM CDT) HCV Ab Screen, S Negative Negative 02/18/20 3:35 PM CDT [facility] Comment: Biotin has been identified by the telephonic nurse as a potential interfering substance. Higher concentrations of biotin may be found in multivitamins, hair/nail supplements, and workout supplements. If the result does not match clinical observations, repeat testing after patient refrains from the use of supplements for at least 12 hours. Blood (Blood, Venous) 02/17/2023 9:35 AM CDT 02/17/2023 2:[address] [facility] - 02/17/2023 3:35 PM CDT Specimen Information: Specimen ID: [id number] Specimen Type: Blood Specimen Collection Start Date: 02/17/2023 ??9:35 AM Specimen Received Date: 02/17/2023 ??2:20 PM Specimen ID: [id number] Specimen Type: Blood Specimen Collection Start Date: 02/17/2023 ??9:35 AM Specimen Received Date: 02/17/2023 ??2:16 PM Haseeb Menon Jr., D.O. LAB MICROBIO LOGY - BLOOD ORDERABLES [facility] [address] [place] [address], [facility] [place] [address] * (ABNORMAL) Renal Function Panel (02/17/2023 9:35 [...] CDT 02/17/2023 11:[address] [facility] - 02/17/2023 4:02 PM CDT Specimen Information: Specimen ID: [id number] Specimen Type: Blood Specimen Collection Start Date: 02/17/2023 ??9:35 AM Specimen Received Date: 02/17/2023 11:01 AM Specimen ID: [id number] Specimen Type: Blood Specimen Collection Start Date: 02/17/2023 ??9:35 AM Specimen Received Date: 02/17/2023 ??3:35 PM Haseeb Menon Jr., D.O. LAB BLOOD AD D-ON [facility] [address] [place] [address], [facility] OWAT [facility] [place] [address] [place] [address] [facility] [address] [place] [address] * (ABNORMAL) Iron and Total Iron-Binding Capacity [...] LAB BLOOD AD D-ON Performing Organization Address City/[facility]/ZIP Co de Phone Number [facility] [address] [place] [address], [facility] AUS [facility] [address] [place] [address] * Ferritin (02/17/2023 9:35 AM CDT) Ferritin, S 385 31 - 409 mcg/L 02/17/2023 1:16 PM CDT [facility] Comment: Biotin has been identified by the telephonic nurse as a potential interfering substance. Higher concentrations of biotin may be found in multivitamins, hair/nail supplements, and workout supplements. If the result does not match clinical observations, repeat testing after patient refrains from the use of supplements for at least 12 hours. Blood (Blood, Venous) 02/17/2023 9:35 AM CDT 02/17/2023 11:01 AM CDT Haseeb Menon Jr., D.O. LAB BLOOD AD D-ON [facility] [address] [place] [address], [place] OW[facility] [place] [address] [place] [address] * (ABNORMAL) CBC with Differential, Blood (02/17/2023 9:35 AM CDT) Pathologist [facility] Hemoglobin 8.5(L) 13.2 - 16.6 g/dL 02/17/2023 [...] Menon Jr. DFeiO. LAB BLOOD AD D-ON [facility] [address] [place] [address], [facility] FB60 [facility] [place] [address] [place] [address] * (ABNORMAL) Albumin, Random, Urine (02/17/2023 9:26 AM CDT) Microalbumin 895.0 mg/L 02/17/2023 1:53 PM CDT [facility] Creatinine 42 mg/dL 02/17/2023 12:50 PM CDT [facility] Albumin/Creatinin e Ratio 2131(H) <17 mg/g 02/17/2023 1:53 PM CDT [facility] Urine (Urine, Voided) 02/17/2023 9:26 AM CDT 02/17/2023 11:00 AM CDT Haseeb Menon Jr., D.O. LAB URINE OR DERABLES [facility] [address] [place] [address], [place] OW[facility] [place] [address] [place] [address] * (ABNORMAL) Urinalysis with Microscopic: Urine, Voided [...] 8.0 02/17/2023 10:03 AM CDT FB60 Specific [place] 1.015 1.001 - 1.035 02/17/2023 10:03 AM [...] LAB URINE OR DERABLES Performing Organization Address City/State/[facility] Co de Phone Number [facility] [address] [place] [address], [facility] FB60 [facility] [place] [address] [place] [address] documented in this encounter Visit Diagnoses Diagnosis [...] documented as of this encounter Care Teams Nail Assembly Machine Operator Relationship Specialty Start Date End Date Elsewhere, Pcp PCP - General Family Medicine 01/29/20 documented as of this encounter
--- OUTSIDE RECORDS SUMMARY | 2023-06-15 13:31 | XMS_ITS | Encounter Summary ---
Author Name Unknown Organization [facility] Address [address] [place] [address] Care Team Providers Care Slab Conditioner Supervisor Name Role Phone Elsewhere, Pcp Primary Care Provider Unavailabl e Encounter Details Date Type Department Care Team (Late st Contact Info) Description 10/27/2022 Episode Changes Division of Nephrology and Hypertension in [place], [place] [address] [place] [address] Malathi Penaloza, RFeiN. [address] [place] [address] Social History Tobacco Use Types Packs/Day Years [...] How often do you attend samaritan or synagogue serv ices? Never 03/24/2021 Do [...] PHQ-2 Score 0 10/20/2018 [facility] - Occupational Stress Questionnaire Answer [...] living situation today? I have a [facility] place to live 10/26/2022 Education Answer Date Recorded What is the highest level of school you have completed or the highest degree you have received? 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
--- OUTSIDE RECORDS SUMMARY | 2023-06-15 13:31 | XMS_ITS | Encounter Summary ---
Author Name Unknown Organization [facility] Address [address] [place] [address] Care Team Providers Care Assistant Professor Of Dietetics Name Role Phone Elsewhere, Pcp Primary Care Provider Unavailabl e Encounter Details Date Type Department Care Team (Late st Contact Info) Description 10/28/2022 Orders Only Division of Nephrology and Hypertension in [place], [place] [address] [place] [address] Haseeb Menon Jr., D.O. [address] [place] [address] Hypertension And Chronic Kidney Disease Stage 4 [...] How often do you attend pentecostalism or yarsani serv ices? Never 03/24/2021 Do [...] Date Recorded PHQ-2 Score 0 10/20/2018 [facility] Occupat ional [facility] - Occupational Stress Questionnaire Answer Date [...] your living situation today? I have a [facility] place to live 10/26/2022 Education Answer Date Recorded What is the highest level of school you have completed or the highest degree you have received? 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/2021 8:13 PM CARE AID Gender Identity Male 08/31/2019 2:40 PM CDT Sexual Orientation Straight 08/31/2019 2: 40 PM CDT documented as of this encounter Plan of Treatment Not on file documented as of this encounter Results * HBs Antibody, Serum (11/17/2022 11:05 AM CDT) [facility] HBs Antibody, S Negative 11/17/2022 9:12 PM CDT [facility] Comment: Patient is presumed to be not immune to infection with HBV. ----REFERENCE VALUE---- Unvaccinated: Negative Vaccinated: Positive HBs Antibody, Quantitative, S <5.0 mIU/mL 11/17/2022 9:12 PM CDT [facility] Comment: ----REFERENCE VALUE---- Unvaccinated: <5.0 Vaccinated: >=12.0 Blood (Blood, Venous) 11/17/2022 11:05 AM CDT 11/17/2022 4:58 PM CDT Haseeb Menon Jr., D.O. LAB MICROBIO LOGY - BLOOD ORDERABLES [facility] [address] [place] [address] [facility] [address] [place] [address] * Hepatitis B Surface Antigen (11/17/2022 11:05 AM CDT) HBs Antigen, S Negative Negative 11/17/2022 8:51 PM CDT [facility] Blood (Blood, Venous) 11/17/2022 11:05 AM CDT 11/17/2022 2:53 PM CDT Haseeb Menon Jr., D.O. LAB MICROBIO LOGY - BLOOD ORDERABLES Performing Organization Address City/[facility]/ZIP Co de Phone Number [facility] [address] [place] [place] [address] [facility] [address] [place] [place] [address] * HBc Total Ab, Serum (11/17/2022 11:05 AM CDT) HBc Total Ab, S Negative Negative 11/17/2022 9:12 PM CDT [facility] Blood (Blood, Venous) 11/17/2022 11:05 AM CDT 11/17/2022 4:58 PM CDT Haseeb Menon Jr., D.O. LAB MICROBIO LOGY - BLOOD ORDERABLES [facility] [address] [place] [address] [facility] [address] [place] [address] * HCV Ab Scrn w/Reflex to HCV PCR, Serum (11/17/2022 11:05 AM CDT) HCV Ab Screen, S Negative Negative 11/17/2022 9:09 PM CDT [facility] Comment:Hpnjep-yc-yyadpu rat io is <1.00. Blood (Blood, Venous) 11/17/2022 11:05 AM CDT 11/17/2022 2:53 PM CDT Haseeb Menon Jr., D.O. LAB MICROBIO LOGY - BLOOD ORDERABLES [facility] [address] [place] [address] [facility] [address] [place] [address] * QuantiFERON-Tb Gold Plus, Blood (11/17/2022 11:04 AM CDT) [facility] QuantiFERON-TB Gold Plus Result Negative Negative 11/18/2022 10:55 AM CDT [facility] Comment: No interferon-gamma response to [...] Result 0.01 IU/mL 11/18/2022 10:55 AM CDT [facility] TB2 Ag minus Nil Result 0.02 IU/mL 11/18/2022 10:55 AM CDT [facility] Mitogen minus Nil Result 9.94 IU/mL 11/18/2022 10:55 AM CDT [facility] Nil Result 0.06 IU/mL 11/18/2022 10:55 AM CDT [facility] Blood (Blood, Venous) 11/17/2022 11:04 AM CDT 11/17/2022 1:50 PM CDT Narrative [facility] - 11/18/2022 10:55 AM CDT Specimen Information: Specimen ID: [id number] Specimen Type: Blood Specimen Collection Start Date: 11/17/2022 11:04 AM Specimen Received Date: 11/17/2022 ??1:50 PM Specimen ID: [id number] Specimen Type: Blood Specimen Collection Start Date: 11/17/2022 11:05 AM Specimen Received Date: 11/17/2022 ??1:50 PM Specimen ID: [id number] Specimen Type: Blood Specimen Collection Start Date: 11/17/2022 11:05 AM Specimen Received Date: 11/17/2022 ??1:50 PM Specimen ID: [id number] Specimen Type: Blood Specimen Collection Start Date: 11/17/2022 11:04 AM Specimen Received Date: 11/17/2022 ??1:50 PM Estiven He Jr.OFei LAB MICROBIO LOGY - BLOOD ORDERABLES [facility] [address] [place] [address] [facility] [address] [place] [address] documented in this encounter Visit Diagnoses Diagnosis Hypertension And Chronic Kidney Disease Stage 4 (HCC)- Primary Hypertension And Chronic Kidney Disease Stage 4 (HCC) documented in this encounter Additional Health Concerns Assessment Noted Time PHQ-9 Depression Total Score: 3 01/04/20 18 10:38 AM CDT documented as of this encounter Care Teams Assistant Professor Of Dietetics Relationship Specialty Start Date End Date Elsewhere, Pcp PCP - General Family Medicine 01/29/20 documented as of this encounter
--- OUTSIDE RECORDS SUMMARY | 2023-06-15 13:31 | XMS_ITS | Encounter Summary ---
Author Name Unknown Organization [facility] Address [address] [place] [address] Care Team Providers Care Print Binding Worker Name Role Phone Elsewhere, Pcp Primary Care Provider Unavailabl e Encounter Details Date Type Department Care Team (Latest Contact Info) Description 11/25/2022 1:41 PM CDT - 11/25/2022 11:59 PM CDT Hospital Encounter Department of Laboratory Medicine in [place], [place] [address] [place] [address] Haseeb Menon Jr., D.O. [address] [place] [phone] Hypertension And Chronic Kidney Disease Stage 4 (HCC); Diabetes Mellitus Type 2 With Diabetic Nephropathy (HCC); Hyperparathyroidism Secondary (HCC); Anemia Of Chronic Renal Disease; Acidosis Metabolic Hyperchloremic; Atherosclerosis Of [place]. [place] Arteries Of Extremities With Intermittent Claudication Right [...] How often do you attend druze or hindu serv ices? 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 [place] Arteries Of Extremities With Intermittent Claudication Right [...] Menon Jr., D.O. LAB BLOOD AD D-ON [facility] [address] [place] [address], [place] OWAT [facility] [place] [address] [place] [address] * (ABNORMAL) Renal Function Panel (11/25/2022 2:09 [...] PM CDT 11/25/2022 3:35 PM CDT Narrative [facility] - 11/25/2022 7:56 PM CDT Specimen Information: Specimen ID: [id number] Specimen Type: Blood Specimen Collection Start Date: 11/25/2022 ??2:09 PM Specimen Received Date: 11/25/2022 ??3:35 PM Specimen ID: [id number] Specimen Type: Blood Specimen Collection Start Date: 11/25/2022 ??2:09 PM Specimen Received Date: 11/25/2022 ??7:10 PM Haseeb Menon Jr., D.O. LAB BLOOD AD D-ON Performing Organization Address City/[facility] Co de Phone Number [facility] [place] [address], [facility] OWAT [facility] [address] [place] [address] [facility] [address] [place] [address] * (ABNORMAL) Iron and Total Iron-Binding Capacity [...] LAB BLOOD AD D-ON Performing Organization Address City/[facility] Co de Phone Number [facility] [address] [place] [address], [facility] [place] [address] [place] [address] * Ferritin (11/25/2022 2:09 PM CDT) Ferritin, S 374 31 - 409 mcg/L 11/25/2022 5:12 PM CDT OW Comment: Biotin has been identified by the sales order specialist as a potential interfering substance. Higher concentrations of biotin may be found in multivitamins, hair/nail supplements, and workout supplements. If the result does not match clinical observations, repeat testing after patient refrains from the use of supplements for at least 12 hours. Blood (Blood, Venous) 11/25/2022 2:09 PM CDT 11/25/2022 3:35 PM CDT Haseeb Menon Jr., D.O. LAB BLOOD AD D-ON [facility] [address] [place] [address], [facility] OWAT [facility] [place] [address] [place] [address] * (ABNORMAL) CBC with Differential, Blood (11/25/2022 [...] Menon Jr., D.O. 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 [place] Ar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 (HCC) documented in this encounter Additional Health Concerns Assessment Noted Time PHQ-9 Depression Total Score: 3 01/04/20 18 10:38 AM CDT documented as of this encounter Care Teams Print Binding Worker Relationship Specialty Start Date End Date Elsewhere, Pcp PCP - General Family Medicine 01/29/20 documented as of this encounter
--- OUTSIDE RECORDS SUMMARY | 2023-06-15 13:31 | XMS_ITS | Encounter Summary ---
Author Name Unknown Organization [facility] Address [address] [place] [address] Care Team Providers Care Telecommunications Facility Examiner Name Role Phone Elsewhere, Pcp Primary Care Provider Unavailabl e Reason for Visit * Appointment Request (Routine) - Closed Specialty Diagnoses / Procedures Referred By Robi t Referred To Contact Nephrology and Hypertension Referral ID Status Reason Start Date Expiration Date Visits Re quested Visits Authorized [id number] Closed 10/28/2022 10/28/2023 1 1 Encounter Details Date Type Department Care Team (Latest Contact Info) Description 11/23/2022 2:30 PM CDT External Outreach Division of Nephrology and Hypertension in [place], [place] [address] [place] [address] Haseeb Menon Jr., D.O. [address] [place] [address] Hypertension And Chronic Kidney Disease Stage 4 (HCC) (Primary Dx); Diabetes Mellitus Type 2 With Diabetic Nephropathy (HCC); Hyperparathyroidism Secondary (HCC); Anemia Of Chronic Renal Disease; Acidosis Metabolic Hyperchloremic; Atherosclerosis Of [place] Arteries Of Extremities With Intermittent Claudication Right [...] How often do you attend baptist or christianity serv ices? Never 03/24/2021 Do you belong [...] Recorded PHQ-2 Score 0 10/20/2018 [facility] of Occupat ional Health - [...] your living situation today? I have a [facility] place to live 10/26/2022 Education Answer Date Recorded What is the highest level of school you have completed or the highest degree you have received? 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 His hemoglobin at that time was 8.6, improved from 7.7 the month prior. His most recent set of iron levels on the 15 of October are acceptable. He would like to have his labs done in [place] we will make sure this is ordered. [...] TAKE ONE CAPSULE BY MOUTH EVERY DAY MCC, Disp: , Rfl: nortriptyline (PAMELOR) 50 mg [...] will get a set of chemistries in [place]. Going forward: 1. Continue GOLD regimen as [...] on sodium bicarb supplements #6 Atherosclerosis Of [place] Arteries Of Extremities With Intermittent Claudication Right [...] 3:02 PM CDT Specimen Information: Specimen ID: [id number] Specimen Type: Blood Specimen Collection Start Date: 01/11/2023 ??8:30 AM Specimen Received Date: 01/11/2023 11:00 AM Specimen ID: [id number] Specimen Type: Blood Specimen Collection Start Date: 01/11/2023 ??8:30 AM Specimen Received Date: 01/11/2023 ??2:35 PM Haseeb Menon Jr., D.O. LAB BLOOD AD D-ON [facility] [address] [place] [address], [facility] [place] [address] [place] [address] [facility] [address] [place] [address] * (ABNORMAL) CBC with Differential, Blood (01/11/2023 8:30 AM CDT) Pathologist [facility] Hemoglobin 8.6(L) 13.2 - 16.6 g/dL 01/11/2023 [...] LAB BLOOD AD D-ON Performing Organization Address City/[facility]/ZIP Co de Phone Number [facility] [address] [place] [address], [facility] [address] [facility] [place] [address] [place] [address] * (ABNORMAL) Hemoglobin A1c (11/25/2022 2:09 PM [...] Menon Jr., D.O. LAB BLOOD AD D-ON [facility] [address] [place] [address], [place] OW[place] [facility] [place] [address] [place] [address] * (ABNORMAL) Renal Function Panel (11/25/2022 2:09 [...] 7:56 PM CDT Specimen Information: Specimen ID: [id number] Specimen Type: Blood Specimen Collection Start Date: 11/25/2022 ??2:09 PM Specimen Received Date: 11/25/2022 ??3:35 PM Specimen ID: [id number] Specimen Type: Blood Specimen Collection Start Date: 11/25/2022 ??2:09 PM Specimen Received Date: 11/25/2022 ??7:10 PM Haseeb Menon Jr., D.O. LAB BLOOD AD D-ON Performing Organization Address City/[facility] Co de Phone Number [facility] [address] [place] [address], [facility] OWAT [facility] [address] [place] [address] [facility] [address] [place] [address] * (ABNORMAL) Iron and Total Iron-Binding Capacity [...] BLOOD AD D-ON Performing Organization Address [facility] Co de Phone Number [facility] [address] [place] [address], [facility] [place] [address] [place] [address] * Ferritin (11/25/2022 2:09 PM CDT) Ferritin, S 374 31 - 409 mcg/L 11/25/2022 5:12 PM CDT OW Comment: Biotin has been identified by the finisher screwdown as a potential interfering substance. Higher concentrations of biotin may be found in multivitamins, hair/nail supplements, and workout supplements. If the result does not match clinical observations, repeat testing after patient refrains from the use of supplements for at least 12 hours. Blood (Blood, Venous) 11/25/2022 2:09 PM CDT 11/25/2022 3:35 PM CDT Haseeb Menon Jr., D.O. LAB BLOOD AD D-ON [facility] [address] [place] [address], [facility] OWAT [facility] [place] [address] [place] [address] * (ABNORMAL) CBC with Differential, Blood (11/25/2022 [...] Menon Jr., D.O. 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) Anemia Of Chronic Renal Disease Acidosis Metabolic Hyperchloremic Atherosclerosis Of [place] Ar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 (HCC) Hypertension And Chronic Kidney Disease Stage 4 (HCC) 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) Anemia Of Chronic Renal Disease Acidosis Metabolic Hyperchloremic Atherosclerosis Of [place] Ar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 (HCC) Hypertension And Chronic Kidney Disease Stage 4 (HCC) 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
--- OUTSIDE RECORDS SUMMARY | 2023-06-15 13:31 | XMS_ITS | Encounter Summary ---
Author Name Unknown Organization [facility] Address [address] [place] [address] Care Team Providers Care Service Person Name Role Phone Elsewhere, Pcp Primary Care Provider Unavailabl e Encounter Details Date Type Department Care Team (Latest Contact Info) Description 11/17/2022 10:28 AM CDT - 11/17/2022 11:17 AM CDT Hospital Encounter Department of Laboratory Medicine and Pathology, [facility] in [place], [place] [address] [place] [address] Haseeb Menon Jr., D.O. [address] [place] [address] Hypertension And Chronic Kidney Disease Stage 4 [...] How often do you attend lutheran or religion serv ices? Never 03/24/2021 Do you belong [...] Answer Date Recorded PHQ-2 Score 0 10/20/2018 [facility] [place] of Occupat ional Health - Occupational Stress [...] living situation today? I have a [facility] place to live 10/26/2022 Education Answer Date Recorded What is the highest level of school you have completed or the highest degree you have received? 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 Comment: Patient is presumed to be not immune to infection with HBV. ----REFERENCE VALUE---- Unvaccinated: Negative Vaccinated: Positive HBs Antibody, Quantitative, S <5.0 mIU/mL 11/17/2022 9:12 PM CDT [facility] Comment: ----REFERENCE VALUE---- Unvaccinated: <5.0 Vaccinated: >=12.0 Blood (Blood, Venous) 11/17/2022 11:05 AM CDT 11/17/2022 4:58 PM CDT Haseeb Menon Jr., D.O. LAB MICROBIO LOGY - BLOOD ORDERABLES [facility] [address] [place] [address] [place] [address] * Hepatitis B Surface Antigen (11/17/2022 11:05 AM CDT) [facility] HBs Antigen, S Negative Negative 11/17/2022 8:51 PM CDT [facility] Blood (Blood, Venous) 11/17/2022 11:05 AM CDT 11/17/2022 2:53 PM CDT Haseeb Menon Jr., D.O. LAB MICROBIO LOGY - BLOOD ORDERABLES [facility] [address] [place] [address] [facility] [address] [place] [address] * HBc Total Ab, Serum (11/17/2022 11:05 AM CDT) [facility] HBc Total Ab, S Negative Negative 11/17/2022 9:12 PM CDT [facility] Blood (Blood, Venous) 11/17/2022 11:05 AM CDT 11/17/2022 4:58 PM CDT Haseeb Menon Jr., D.O. LAB MICROBIO LOGY - BLOOD ORDERABLES Performing Organization Address [facility] Co de Phone Number [place] [phone] [place] [address] [place] [address] * HCV Ab Scrn w/Reflex to HCV PCR, Serum (11/17/2022 11:05 AM CDT) [facility] HCV Ab Screen, S Negative Negative 11/17/2022 9:09 PM CDT [facility] Comment:Flcqbx-kr-ikttgw rat io is <1.00. Blood (Blood, Venous) 11/17/2022 11:05 AM CDT 11/17/2022 2:53 PM CDT Haseeb Menon Jr., D.O. LAB MICROBIO LOGY - BLOOD ORDERABLES Performing Organization Address [facility] de Phone Number [place] [phone] [place] [address] [place] [address] * QuantiFERON-Tb Gold Plus, Blood (11/17/2022 11:04 AM CDT) [facility] QuantiFERON-TB Gold Plus Result Negative Negative 11/18/2022 10:55 AM CDT [facility] Comment: No interferon-gamma response to M. [...] Result 0.06 IU/mL 11/18/2022 10:55 AM CDT [facility] Blood (Blood, Venous) 11/17/2022 11:04 AM CDT 11/17/2022 1:50 PM CDT Narrative [facility] - 11/18/2022 10:55 AM CDT Specimen Information: Specimen ID: [id number] Specimen Type: Blood Specimen Collection Start Date: 11/17/2022 11:04 AM Specimen Received Date: 11/17/2022 ??1:50 PM Specimen ID: [id number] Specimen Type: Blood Specimen Collection Start Date: 11/17/2022 11:05 AM Specimen Received Date: 11/17/2022 ??1:50 PM Specimen ID: [id number] Specimen Type: Blood Specimen Collection Start Date: 11/17/2022 11:05 AM Specimen Received Date: 11/17/2022 ??1:50 PM Specimen ID: [id number] Specimen Type: Blood Specimen Collection Start Date: 11/17/2022 11:04 AM Specimen Received Date: 11/17/2022 ??1:50 PM Haseeb Menon Jr., D.O. LAB MICROBIO LOGY - BLOOD ORDERABLES [facility] [address] [place] [address] [facility] [address] [place] [address] documented in this encounter Visit Diagnoses Diagnosis Hypertension And Chronic Kidney Disease Stage 4 (HCC) documented in this encounter Additional Health Concerns Assessment Noted Time PHQ-9 Depression Total Score: 3 01/04/20 18 10:38 AM CDT documented as of this encounter Care Teams Service Person Relationship Specialty Start Date End Date Elsewhere, Pcp PCP - General Family Medicine 01/29/20 documented as of this encounter
--- OUTSIDE RECORDS SUMMARY | 2023-06-15 13:31 | XMS_ITS | Encounter Summary ---
Author Name Unknown Organization [facility] Address [address] [place] [address] Care Team Providers Care Record Keeper Name Role Phone Elsewhere, Pcp Primary Care Provider Unavailabl e Encounter Details Date Type Department Care Team (Late st Contact Info) Description 10/15/2022 Clinical Communication Division of Nephrology and Hypertension in [place], [place] [address] [place] [address] Farrah Barnes M.D., Ph.D. [address] [place] [address] Social History Tobacco Use Types Packs/Day Years [...] How often do you attend jain or gnosticism serv ices? Never 03/24/2021 Do [...] Date Recorded PHQ-2 Score 0 10/20/2018 [facility] of Occupat ional Health - Occupational Stress [...] or slept in a detention (including now)? 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 - 10/15/2022 1:39 PM CDT I have contacted Mr. Walton to discuss his most recent labs done today. His creatinine is slightlyhigher than his last values done at [facility], likely a fluctuation within his new baseline. [...] documented as of this encounter Care Teams Record Keeper Relationship Specialty Start Date End Date Elsewhere, Pcp PCP - General Family Medicine 01/29/20 documented as of this encounter
--- OUTSIDE RECORDS SUMMARY | 2023-06-15 13:31 | XMS_ITS | Encounter Summary ---
Author Name Unknown Organization [facility] Address [address] [place] [address] Care Team Providers Care Director Advertising Name Role Phone Elsewhere, Pcp Primary Care [...] 2 Views Haseeb Menon Jr., D.O. 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 [address] [place] [address] Hypertension And Chronic Kidney Disease Stage 4 [...] How often do you attend anabaptist or mandaeism serv ices? 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
--- OUTSIDE RECORDS SUMMARY | 2023-06-15 13:31 | XMS_ITS | Encounter Summary ---
Author Name Unknown Organization [facility] Address [address] [place] [address] Care Team Providers Care Buffing And Polishing Wheel Repairer Name Role Phone Elsewhere, Pcp Primary Care Provider Unavailabl e Reason for Visit * Appointment Request (Routine) - Closed Specialty Diagnoses / Procedures Referred By Robi t Referred To Contact Nephrology and Hypertension Referral ID Status Reason Start Date Expiration Date Visits Re quested Visits Authorized [id number] Closed 09/23/2022 09/23/2023 1 1 Encounter Details Date Type Department Care Team (Latest Contact Info) Description 10/26/2022 9:00 AM CDT External Outreach Division of Nephrology and Hypertension in [place], [place] [address] [place] [address] Haseeb Menon Jr., D.O. [address] [place] [address] Hypertension And Chronic Kidney Disease Stage 4 (HCC) (Primary Dx); Diabetes Mellitus Type 2 With Diabetic Nephropathy (HCC); Anemia Of Chronic Renal Disease; Peripheral Arterial Disease (HCC); Hyperparathyroidism Secondary (HCC); Atherosclerosis Of [place] Arteries Of Left Leg With Ulceration Of [...] week 03/24/2021 How often do you attend taoist or catholic serv ices? Never 03/24/2021 Do you belong to any clubs o r organizations such as taoist groups, unions, fraternal or athletic groups, or [...] 0 10/20/2018 [facility] - Occupational Stress Questionnaire Answer Date [...] your living situation today? [facility] 10/26/2022 Education Answer Date Recorded What is the highest level of school you have completed or the highest degree you have received? 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 #2 Diabetes Mellitus Type 2 With Diabetic Nephropathy ([facility]) His glycemic control is variable currently, his [...] consider blood transfusion. #4 Peripheral Arterial Disease ([facility]) No open active wounds currently, no rest claudication. #5 Hyperparathyroidism Secondary ([facility]) Reminded him to take his 500 mg Tums 2 with each meal. This will help with his pruritus, as well as binding his phosphorus and improving his serum calciumlevel. #6 Atherosclerosis Of [place] Arteries Of Left Leg With Ulceration Of Unspecified Site (HCC) This has resolved #7 Depression Major Recurrent Moderate (HCC) He is well compensated from this perspective Please note he was accompanied to his visit today by his and daughter who are excellent qual field manager for him. #8.: PA ME He is [...] Disease (HCC) Hyperparathyroidism Secondary (HCC) Atherosclerosis Of [place] Arteries Of Left Leg With Ulceration Of Unspecified Site (HCC) Depression Major Recurrent Moderate (HCC) documented in this encounter Additional Health Concerns Assessment Noted Time PHQ-9 Depression Total Score: 3 01/04/20 18 10:38 AM CDT documented as of this encounter Care Teams Buffing And Polishing Wheel Repairer Relationship Specialty Start Date End Date Elsewhere, Pcp PCP - General Family Medicine 01/29/20 documented as of this encounter
--- OUTSIDE RECORDS SUMMARY | 2023-06-15 13:31 | XMS_ITS | Encounter Summary ---
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 [address] [place] [phone] Tee Celeste M.D., Ph.D. [address] [place] [phone] Hypertension And Chronic Kidney Disease Stage 4 [...] How often do you attend moravian or buddhist serv ices? 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 Note patient is [facility] and would undergo his outpatient training for peritoneal dialysis outside of the [employer] system. Tee Celeste MD documented in this [...] as of this encounter Care Teams Seat Maker Relationship Specialty Start Date End Date Elsewhere, Pcp PCP - General Family Medicine 01/29/20 documented as of this encounter
--- OUTSIDE RECORDS SUMMARY | 2023-06-15 13:31 | XMS_ITS | Encounter Summary ---
Author Name Unknown Organization [facility] Address [address] [place] [address] Care Team Providers Care Evaporator Supervisor Name Role Phone Elsewhere, Pcp Primary Care Provider Unavailabl e Encounter Details Date Type Department Care Team (Late st Contact Info) Description 11/05/2022 Clinical Communication Division of Nephrology and Hypertension in [place], [place] [address] [place] [address] Haseeb Menon Jr., D.O. [address] [place] [address] Social History Tobacco Use Types Packs/Day Years [...] week 03/24/2021 How often do you attend adventist or congregational serv ices? 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
--- OUTSIDE RECORDS SUMMARY | 2023-06-15 13:31 | XMS_ITS | Encounter Summary ---
Author Name Unknown Organization [facility] Address [address] [place] [address] Care Team Providers Care Hotel Superintendent Name Role Phone Elsewhere, Pcp Primary Care Provider Unavailabl e Encounter Details Date Type Department Care Team (Late st Contact Info) Description 11/01/2022 Documentation Division of Nephrology and Hypertension in [place], [place] [address] [place] [phone] Deanna Dias M.SFeiN., R.N. [address] [place] [phone] Social History Tobacco Use Types Packs/Day Years [...] How often do you attend advent or roman catholic serv ices? 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 Menon note on [...] documented as of this encounter Care Teams Hotel Superintendent Relationship Specialty Start Date End Date Elsewhere, Pcp PCP - General Family Medicine 01/29/20 documented as of this encounter
--- OUTSIDE RECORDS SUMMARY | 2023-06-15 13:32 | XMS_ITS | Encounter Summary ---
Author Name Unknown Organization [facility] Address [address] [place] [address] Care Team Providers Care Galvanizer Zinc Name Role Phone Elsewhere, Pcp Primary Care Provider Unavailabl e Reason for Visit * Reason Onset Date Comments Med Question 07/08/2022 Encounter Details Date Type Department Care Team (Latest Contact Info) Description 07/08/2022 Clinical Communication Division of Nephrology and Hypertension in [place], [place] [address] [place] [address] Haseeb Menon Jr., D.O. [address] [place] [address] Med Question Social History Tobacco Use Types [...] How often do you attend confucianist or anabaptist serv ices? Never 03/24/2021 Do [...] Date Recorded PHQ-2 Score 0 10/20/2018 [facility] [place] of Occupat ional Health - Occupational Stress [...] or slept in a mcfp (including now)? 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 His PCP would like Dr. Menon's opinion on what medication they should give the patient that is not too harmful for his kidneys. Patient tells me he has been on prednisone for the past week but as soon as he stopped taking it his hand started swelling again. His PCP suggested Uloric or Allopurinol. HER ROLLER documented in this encounter Plan of Treatment Not on file documented as of this encounter Visit Diagnoses Not on filedocumented in this encounter Additional Health Concerns Assessment Noted Time PHQ-9 Depression Total Score: 3 01/04/20 18 10:38 AM CDT documented as of this encounter Care Teams Galvanizer Zinc Relationship Specialty Start Date End Date Elsewhere, Pcp PCP - General Family Medicine 01/29/20 documented as of this encounter
--- OUTSIDE RECORDS SUMMARY | 2023-06-15 13:32 | XMS_ITS | Encounter Summary ---
Author Name Unknown Organization [facility] Address [address] [place] [address] Care Team Providers Care Label Remover Name Role Phone Elsewhere, Pcp Primary Care [...] 2 Views Haseeb Menon Jr., D.O. 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 [address] [place] [address] [facility] Referral ID Status Reason Start Date Expiration Date Visits Re quested Visits Authorized [id number] Closed 09/14/2022 09/14/2023 1 1 Encounter Details Date Type Department Care Team (Late st Contact Info) Description 09/14/2022 Orders Only Division of Nephrology and Hypertension in [place], [place] [address] [place] [address] Haseeb Menon Jr., D.O. [address] [place] [address] Hypertension And Chronic Kidney Disease Stage 4 [...] How often do you attend shinto or scientologist serv ices? Never 03/24/2021 Do [...] Date Recorded PHQ-2 Score 0 10/20/2018 [facility] of Occupat ional Health - Occupational [...] or slept in a assisted (including now)? 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
--- OUTSIDE RECORDS SUMMARY | 2023-06-15 13:32 | XMS_ITS | Encounter Summary ---
Author Name Unknown Organization [facility] Address [address] [place] [address] Care Team Providers Care Spiritual Advisor Name Role Phone Elsewhere, Pcp Primary Care Provider Unavailabl e Reason for Visit * Reason Comments Med Refill Encounter Details Date Type Department Care Team (Late st Contact Info) Description 06/23/2022 Refill Division of Nephrology and Hypertension in [place], [place] [address] [place] [address] Hui Delgado APRN, C.N.P., R.N. Med Refill [...] How often do you attend protestant or yazidism serv ices? 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
--- OUTSIDE RECORDS SUMMARY | 2023-06-15 13:32 | XMS_ITS | Encounter Summary ---
Author Name Unknown Organization [facility] Address [address] [place] [address] Care Team Providers Care Associate Product Integrity Engineer Name Role Phone Elsewhere, Pcp Primary Care Provider Unavailabl e Reason for Visit * Appointment Request (Routine) - Closed Specialty Diagnoses / Procedures Referred By Robi t Referred To Contact Nephrology and Hypertension Referral ID Status Reason Start Date Expiration Date Visits Re quested Visits Authorized [id number] Closed 08/27/2022 08/27/2023 1 Encounter Details Date Type Department Care Team (Latest Contact Info) Description 09/14/2022 9:00 AM CDT External Outreach Division of Nephrology and Hypertension in [place], [place] [address] [place] [address] Haseeb Menon Jr., D.O. [address] [place] [address] Hypertension And Chronic Kidney Disease Stage 4 [...] How often do you attend advent or rastafarian serv ices? 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
--- OUTSIDE RECORDS SUMMARY | 2023-06-15 13:32 | XMS_ITS | Encounter Summary ---
Author Name Unknown Organization [facility] Address [address] [place] [address] Care Team Providers Care It Risk And Assurance Senior Manager Name Role Phone Elsewhere, Pcp Primary Care Provider Unavailabl e Encounter Details Date Type Department Care Team (Latest Contact Info) Description 09/06/2022 10:39 AM CDT - 09/06/2022 11:59 PM CDT Hospital Encounter Department of Laboratory Medicine in [place], [place] [address] [place] [address] Haseeb Menon Jr., D.O. 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 Never 03/24/2021 Do [...] Answer Date Recorded PHQ-2 Score 0 10/20/2018 [facility] of Occupat ional Health - Occupational [...] or slept in a snf (including now)? 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 D.O. LAB URINE OR DERABLES [facility] [address] [facility] [place] [address], [facility] FB60 [facility] [place] [address] [place] [address] * (ABNORMAL) Albumin, Random, Urine (09/06/2022 10:59 AM CDT) Microalbumin 1149.0 mg/L 09/06/2022 4:37 PM CDT OW[facility] Creatinine 22 mg/dL 09/06/2022 2:31 PM CDT [facility] Albumin/Creatinin e Ratio 5223(H) <17 mg/g 09/06/2022 4:37 PM CDT [facility] Urine (Urine, Voided) 09/06/2022 10:59 AM CDT 09/06/2022 1:39 PM CDT Haseeb Menon Jr., D.O. LAB URINE OR DERABLES Performing Organization Address City/State/[facility] Co de Phone Number [facility] [address] [place] [address], [facility] OW[address] 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
--- OUTSIDE RECORDS SUMMARY | 2023-06-15 13:32 | XMS_ITS | Encounter Summary ---
Author Name Unknown Organization [facility] Address [address] [place] [address] Care Team Providers Care Appraiser Boats And Marine Name Role Phone Elsewhere, Pcp Primary Care Provider Unavailabl e Reason for Visit * Reason Onset Date Comments Txp Initial RN Phone Interview 09/21/2022 Encounter Details Date Type Department Care Team (Latest Contact Info) Description 09/21/2022 Clinical Communication [facility] in [place], [place] [address] [place] [address] Regina Basurto R.N., C.C.T.C. [address] [place] [phone] Txp Initial RN Phone Interview Social History [...] How often do you attend amish or baptist serv ices? 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 Stenting done at [place] and images in eads. Hx of CVA [...] No Informed of COVID vaccine requirement: Yes Manager Media Relations Utilized: No Phone Screen Type: Kidney Completed [...] (Benefit check not needed for Medicare or [employer] [place] Insurance) Do you know your GFR? Yes, [...] NA Pap: NA Cardiovascular History: HTN: Yes VA: No CVA/TIA: Yes mini stroke 15-20 years [...] Information for Kidney, Kidney/Pancreas, andPancreas Transplant Candidates [id number] was reviewed with the patient via telephone call. Confirmed Onesimo Walton's interest in pursuing a kidney transplant evaluation at [facility]. The patient verbalized understanding of [...] documented as of this encounter Care Teams Appraiser Boats And Marine Relationship Specialty Start Date End Date Elsewhere, Pcp PCP - General Family Medicine 01/29/20 documented as of this encounter
--- OUTSIDE RECORDS SUMMARY | 2023-06-15 13:32 | XMS_ITS | Encounter Summary ---
Author Name Unknown Organization [facility] Address [address] [place] [address] Care Team Providers Care Preparatory Technician Name Role Phone Elsewhere, Pcp Primary Care Provider Unavailpaola e Encounter Details Date Type Department Care Team (Late st Contact Info) Description 08/19/2016 Historical Ophthalmology [facility] Chalo Holland Jr., M.D. 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 Gender Identity Male 08/31/2019 2:40 PM [...] IOL OU CDM Reports - EYEGEN Id: [id number] Status: Fnl documented in this encounter Plan of Treatment Not on file documented as of this encounter Visit Diagnoses Not on filedocumented in this encounter Additional Health Concerns Infection Onset Date Last Indicated Resolved Time COVID19 Pending 05/08/2020 05/08/2020 05/08/2020 2 :44 PM STRAP CUTTER Assessment Noted Time PHQ-9 Depression Total Score: 7 08/17/19 17 9:01 AM CDT documented as of this encounter Care Teams Preparatory Technician Relationship Specialty Start Date End Date Elsewhere, Pcp PCP - General Family Medicine 01/29/20 documented as of this encounter
--- OUTSIDE RECORDS SUMMARY | 2023-06-15 13:32 | XMS_ITS ---
Author Name Unknown Organization [facility] Address [address] [place] [address] Care Team Providers Care Freezer Machine Operator Name Role Phone Elsewhere, Pcp Primary Care Provider Unavailabl e Transplant Episode Kidney Candidate [place], [place]) - [facility] Referred on 09/16/2022 Marked as Ineligible on 09/21/2022 Reason: Surgical Contraindication Kidney CoordinatorDetiffany Becerra R.N., C.C.T.C. Email: [email or web address] Scores Score Value Updated Exceptions/Reas ons CPRA Not available EPTS (Calc) 71 06/15/2023 Care Team Name Role Phone Fax Email Regina Becerra R.N., C.C.T.C. Kidney Coordinator [phone] [email or web address] Haseeb Menon Jr., D.O. Referring Provider [phone] [email or web address] Events Pre-Transplant Referred: 09/16/2022
--- OUTSIDE RECORDS SUMMARY | 2023-06-15 13:32 | XMS_ITS | Encounter Summary ---
Author Name Unknown Organization [facility] Address [address] [place] [address] Care Team Providers Care Leather Tanner Name Role Phone Elsewhere, Pcp Primary Care Provider Unavailabl e Encounter Details Date Type Department Care Team (Late st Contact Info) Description 07/05/2022 Orders Only Division of Nephrology and Hypertension in [place], [place] [address] [place] [address] Haseeb Menon Jr., D.O. [address] [place] [address] Social History Tobacco Use Types Packs/Day Years [...] week 03/24/2021 How often do you attend tenriism or jew serv ices? Never 03/24/2021 Do you belong to any clubs o r organizations such as tenriism groups, unions, fraternal or athletic groups, or [...] Answer Date Recorded PHQ-2 Score 0 10/20/2018 [facility]at ional [facility] - [...] or slept in a mcc (including now)? 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
--- OUTSIDE RECORDS SUMMARY | 2023-06-15 13:32 | XMS_ITS | Encounter Summary ---
Author Name Unknown Organization [facility] Address [address] [place] [address] Care Team Providers Care Cannoneer Name Role Phone Elsewhere, Pcp Primary Care Provider Unavailabl e Reason for Visit * Reason Onset Date Comments Amlodipine RX 07/01/2022 Encounter Details Date Type Department Care Team (Latest Contact Info) Description 07/01/2022 Clinical Communication Division of Nephrology and Hypertension in [place], [place] [address] [place] [address] Haseeb Menon Jr., D.O. [address] [place] [address] Amlodipine RX Social History Tobacco Use Types [...] How often do you attend sabianism or samaritan serv ices? Never 03/24/2021 Do [...] Recorded PHQ-2 Score 0 10/20/2018 [facility] Occupat ional Health - Occupational Stress [...] or slept in a retirement (including now)? 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 [...] if 10 mg is correct. Thank you. SUPERVISOR documented in this encounter Plan of Treatment Not on file documented as of this encounter Visit Diagnoses Not on filedocumented in this encounter Additional Health Concerns Assessment Noted Time PHQ-9 Depression Total Score: 3 01/04/20 18 10:38 AM CDT documented as of this encounter Care Teams Cannoneer Relationship Specialty Start Date End Date Elsewhere, Pcp PCP - General Family Medicine 01/29/20 documented as of this encounter
--- OUTSIDE RECORDS SUMMARY | 2023-06-15 13:32 | XMS_ITS | Encounter Summary ---
Author Name Unknown Organization [facility] Address [address] [place] [address] Care Team Providers Care Windows Security Engineer Name Role Phone Elsewhere, Pcp Primary Care Provider Unavailabl e Reason for Visit * Appointment Request (Routine) - Closed Specialty Diagnoses / Procedures Referred By Robi t Referred To Contact Transplant Diagnoses Pre Procedures Pre [facility] Referral ID Status Reason Start Date Expiration Date Visits Re quested Visits Authorized [id number] Closed 09/16/2022 09/16/2023 1 1 Encounter Details Date Type Department Care Team (Latest Contact Info) Description 09/21/2022 9:00 AM CDT Clinical Communication [facility] in [place], [place] [address] [place] [address] Regina Basurto R.N., C.C.T.C. [address] [place] [address] Social History Tobacco Use Types Packs/Day Years [...] How often do you attend bahai or yazdanism serv ices? 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
--- OUTSIDE RECORDS SUMMARY | 2023-06-15 13:32 | XMS_ITS | Encounter Summary ---
Author Name Unknown Organization [facility] Address [address] [place] [address] Care Team Providers Care Health Outcomes Liaison Name Role Phone Elsewhere, Pcp Primary Care Provider Unavailabl e Encounter Details Date Type Department Care Team (Latest Contact Info) Description 09/06/2022 10:39 AM CDT - 09/06/2022 11:59 PM CDT Hospital Encounter Department of Laboratory Medicine in [place], [place] [address] [place] [address] Haseeb Menon Jr., D.O. [address] [place] [address] Hypertension And Chronic Kidney Disease Stage 4 (HCC); Diabetes Mellitus Type 2 With Diabetic Nephropathy (HCC); Anemia Of Chronic Renal Disease; Hyperparathyroidism Secondary (HCC); Atherosclerosis Of [place] Arteries Of Left [...] How often do you attend zoroastrianism or denominational serv ices? 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 Gender Identity Male 08/31/2019 2:40 PM [...] TAKE ONE CAPSULE BY MOUTH EVERY DAY [facility] 0 01/14/2022 nortriptyline (PAMELOR) 50 mg capsule [...] Renal Disease Hyperparathyroidism Secondary (HCC) Atherosclerosis Of [place] Arteries Of Left Leg With Ulceration Of Unspecified Site (HCC) Depression Major Recurrent Moderate (HCC) IRON AND TOT IRON-BINDING CAPACITY, S/P Routine 09/06/2022 11:04 AM CDT Hypertension And Chronic Kidney Disease Stage 4 (HCC) Diabetes Mellitus Type 2 With Diabetic Nephropathy (HCC) Anemia Of Chronic Renal Disease Hyperparathyroidism Secondary (HCC) Atherosclerosis Of [place] Arteries Of Left Leg With Ulceration Of Unspecified Site (HCC) Depression Major Recurrent Moderate (HCC) CBC WITH DIFFERENTIAL, B Routine 09/06/2022 11:04 AM CDT Hypertension And Chronic Kidney Disease Stage 4 (HCC) Diabetes Mellitus Type 2 With Diabetic Nephropathy (HCC) Anemia Of Chronic Renal Disease Hyperparathyroidism Secondary (HCC) Atherosclerosis Of [place] Arteries Of Left Leg With Ulceration Of Unspecified Site (HCC) Depression Major Recurrent Moderate (HCC) URIC ACID, S/P Routine 09/06/2022 11:04 AM CDT Hypertension And Chronic Kidney Disease Stage 4 (HCC) Diabetes Mellitus Type 2 With Diabetic Nephropathy (HCC) Anemia Of Chronic Renal Disease Hyperparathyroidism Secondary (HCC) Atherosclerosis Of [place] Arteries Of Left Leg With Ulceration Of Unspecified Site (HCC) Depression Major Recurrent Moderate (HCC) PARATHYROID HORMONE (PTH), S Routine 09/06/2022 11:04 AM CDT Hypertension And Chronic Kidney Disease Stage 4 (HCC) Diabetes Mellitus Type 2 With Diabetic Nephropathy (HCC) Anemia Of Chronic Renal Disease Hyperparathyroidism Secondary (HCC) Atherosclerosis Of [place] Arteries Of Left Leg With Ulceration Of Unspecified Site (HCC) Depression Major Recurrent Moderate (HCC) HEMOGLOBIN A1C, B Routine 09/06/2022 11: 04 AM CDT Hypertension And Chronic Kidney Disease Stage 4 (HCC) Diabetes Mellitus Type 2 With Diabetic Nephropathy (HCC) Anemia Of Chronic Renal Disease Hyperparathyroidism Secondary (HCC) Atherosclerosis Of [place] Arteries Of Left Leg With Ulceration Of Unspecified Site (HCC) Depression Major Recurrent Moderate (HCC) FERRITIN, S Routine 09/06/2022 11:04 AM CDT Hypertension And Chronic Kidney Disease Stage 4 (HCC) Diabetes Mellitus Type 2 With Diabetic Nephropathy (HCC) Anemia Of Chronic Renal Disease Hyperparathyroidism Secondary (HCC) Atherosclerosis Of [place] Arteries Of Left [...] Menon Jr., D.O. LAB BLOOD AD D-ON [facility] [address] [place], [place] [id number] [place] [address] Lab - [address] [address] * Uric Acid (09/06/2022 11:04 AM CDT) Uric Acid, P 5.8 3.7 - 8.0 mg/dL 09/06/2022 4:47 PM CDT AUST Blood (Blood, Venous) 09/06/2022 11:04 AM CDT 09/06/2022 4:24 PM CDT Haseeb Menon Jr., D.O. LAB BLOOD AD D-ON Performing Organization Address [facility] Co de Phone Number [facility] [address] [place] [address], [facility] - [address] [address] * (ABNORMAL) Parathyroid Hormone (PTH) (09/06/2022 11:04 AM CDT) Parathyroid Hormone (PTH), S 240(H) 15 - 65 pg/mL 09/06/2022 5:01 PM CDT AUST Comment: Biotin has been identified by the cultural anthropology professor as a potential interfering substance. Higher concentrations of biotin may be found in multivitamins, hair/nail supplements, and workout supplements. If the result does not match clinical observations, repeat testing after patient refrains from the use of supplements for at least 12 hours. Blood (Blood, Venous) 09/06/2022 11:04 AM CDT 09/06/2022 4:24 PM CDT Haseeb Menon Jr., D.O. LAB BLOOD AD D-ON [facility] [address] [place] [address], [facility] AUST Alan Lab - [facility] [address] [place] [address] * (ABNORMAL) Ferritin (09/06/2022 11:04 AM CDT) Ferritin, S 640(H) 31 - 409 mcg/L 09/06/2022 3:48 PM CDT OWAT Comment: Biotin has been identified by the cultural anthropology professor as a potential interfering substance. Higher concentrations [...] LAB BLOOD AD D-ON Performing Organization Address [facility]/ZIP Co de Phone Number [facility] [address] [place] [address], [facility] OWAT [facility] in [place] [address] [place] [address] * (ABNORMAL) Hemoglobin A1c (09/06/2022 11:04 AM CDT) Pathologist [facility] Hemoglobin A1c, B 6.1(H) 4.2 - 5.6 % 09/06/2022 2:30 PM CDT OWAT Comment: Hemoglobin A1c values of 5.7-6.4 percent indicate an increased risk for developing diabetes mellitus. In diabetic patients, HbA1c goals should be discussed with healthcare provider. Blood (Blood, Venous) 09/06/2022 11:04 AM CDT 09/06/2022 1:37 PM CDT Haseeb Menon Jr., D.O. LAB BLOOD AD D-ON Performing Organization Address City/[facility]/ZIP Co de Phone Number [facility] [address] [place] [address], [place] OWAT [facility] in [address] [place] [address] * (ABNORMAL) Renal Function Panel (09/06/2022 11:04 [...] AM CDT 09/06/2022 4:24 PM CDT Narrative [facility] - 09/06/2022 4:47 PM CDT Specimen Information: Specimen ID: [id number] Specimen Type: Blood Specimen Collection Start Date: 09/06/2022 11:04 AM Specimen Received Date: 09/06/2022 ??4:24 PM Specimen ID: [id number] Specimen Type: Blood Specimen Collection Start Date: 09/06/2022 11:04 AM Specimen Received Date: 09/06/2022 ??1:38 PM Haseeb Menon Jr., D.O. LAB BLOOD AD D-ON [facility] [address] [place] [address], [facility] OWAT [facility] in [place] [address] [place] [address] [facility] [address] [place] [address] * (ABNORMAL) CBC with Differential, Blood (09/06/2022 11:04 AM CDT) Pathologist [facility] Hemoglobin 8.8(L) 13.2 - 16.6 g/dL [...] Estiven He Jr.OFei LAB BLOOD AD D-ON [facility] [address] [place] [address], [facility] FB60 [facility] [place] [address] documented in this encounter Visit Diagnoses Diagnosis Hypertension And Chronic Kidney Disease Stage 4 (HCC) Diabetes Mellitus Type 2 With Diabetic Nephropathy (HCC) Anemia Of Chronic Renal Disease Hyperparathyroidism Secondary (HCC) Atherosclerosis Of [place] Arteries Of Left Leg With Ulceration Of Unspecified Site (HCC) Depression Major Recurrent Moderate (HCC) documented in this encounter Additional Health Concerns Assessment Noted Time PHQ-9 Depression Total Score: 3 01/04/20 18 10:38 AM CDT documented as of this encounter Care Teams Health Outcomes Liaison Relationship Specialty Start Date End Date Elsewhere, Pcp PCP - General Family Medicine 01/29/20 documented as of this encounter
--- NOTE | 2023-06-15 13:45 | CRLHL7_ITS ---
For Patients: As a result of the Century Cures Act, medical imaging exams and procedure reports are released immediately into your electronic medical record. You may view this report before your referring provider. If you have questions, please contact your health care provider. HISTORY: Nonhealing diabetic foot ulcer. TECHNIQUE: Noncontrast MRI of the right foot. Oistr-lp-fgom includes the forefoot and a portion of the midfoot. COMPARISON: Radiographs 06/02/2023. MRI 10/29/2019. FINDINGS: There is a plantar foot wound underlying the 1st MTP joint region. Infiltration of the subcutaneous tissues in that region compatible with cellulitis. Previously seen bone marrow edema within the 1st metatarsal head and 1st proximal phalanx has largely resolved as compared to the prior MRI. There is no osteomyelitis of the 1st metatarsal head or phalanges of the great toe. There remains bone marrow edema within the medial sesamoid bone with chronic osseous deformity of that bone. There is some sclerosis associated with that bone which may be degenerative, reflect sequelae of prior fracture or prior avascular necrosis. There does not appear to be complete effacement of the fatty marrow throughout that bone, however. There is no osteomyelitis of the lateral sesamoid bone. Hallux valgus is present with advanced 1st MTP joint degenerative changes. A small amount of 1st MTP joint fluid is present. There is arthrosis of the interphalangeal joint of the great toe. No osteomyelitis of the 2nd or 5th toes. 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 Degenerative arthrosis within the midfoot and at the midfoot-forefoot junction. Atrophy of foot musculature compatible with chronic denervation changes. No discrete soft tissue collection. IMPRESSION: 1. Plantar foot ulcer underlying the 1st MTP joint region with associated soft tissue infiltration which likely relates to cellulitis. 2. Resolution of previously seen bone marrow edema within the head of the 1st metatarsal bone and 1st proximal phalanx without evidence of osteomyelitis of the 1st metatarsal bone or great toe phalanges. 3. Persistent bone marrow edema within the medial sesamoid bone, indeterminate for osteomyelitis given the chronic osseous deformity of that bone and degenerative changes of the 1st MTP joint space. No diffuse confluent effacement of the fatty marrow within that bone (which if present would be more specific for osteomyelitis). 4. Advanced 1st MTP joint degenerative changes with hallux valgus and bunion minor 1st MTP joint effusion. 5. No soft tissue fluid collection. Dictated by Hans Erazo MD @ 06/16/2023 8:47:55 AM (Electronically Signed)
== END 2023-06-15 13:24 | disposition home or self-care (01) ==
LOC: MRI 13:25
PROVIDERS: PCP Family Medicine; Visit Provider Nurse Practitioner Family
DX: L98.499 Non-pressure chronic ulcer of skin of other sites with unspecified severity (principal); M19.071 Primary osteoarthritis, right ankle and foot
CPT/HCPCS: 73718

== ENCOUNTER 2023-06-21 10:51 | Outpatient (CLI) | payer MEDICARE, BC, SELFPAY | END 2023-06-21 10:52 | disposition home or self-care (01) | LOC: WOUND 10:51 | PROVIDERS: PCP Family Medicine; Visit Provider Nurse Practitioner Family | DX: E11.621 Type 2 diabetes mellitus with foot ulcer (principal); L97.515 Non-pressure chronic ulcer of other part of right foot with muscle involvement without evidence of necrosis; Z79.4 Long term (current) use of insulin | CPT/HCPCS: 97597 ==

== ENCOUNTER 2023-06-28 10:22 | Outpatient (CLI) | payer MEDICARE, BC, SELFPAY | END 2023-06-28 10:23 | disposition home or self-care (01) | LOC: WOUND 10:23 | PROVIDERS: PCP Family Medicine; Visit Provider Physician Assistant | DX: E11.621 Type 2 diabetes mellitus with foot ulcer (principal); L97.515 Non-pressure chronic ulcer of other part of right foot with muscle involvement without evidence of necrosis; Z79.4 Long term (current) use of insulin; Z96.41 Presence of insulin pump (external) (internal) | CPT/HCPCS: 11042 ==

== ENCOUNTER 2023-07-05 10:31 | Outpatient (CLI) | payer MEDICARE, BC, SELFPAY ==
--- OUTSIDE RECORDS SUMMARY | 2023-07-05 10:35 | XMS_ITS | Continuity of Care Document ---
Author Name Unknown Organization [facility] Address [address] [place] [address] Phone Care Team Providers Care Spool Sorter Name Role Phone Dot Warner Unavailable Unavailable Medications Medication Instructions Dosage Effective Dates (start - stop) Status Comments AMPICILLIN-SULBACTAM (unknown strength) Not Available - Active MINOCYCLINE HCL (unknown strength) Not Available - Active Procedures Procedure Date Office/Outpatient Visit,Est, Mod 2022 OFFICE/OUTPATIENT VISIT EST Phone Office/Outpatient Visit,Est, Mod 2022 Followup Hospital Care, [facility] 2021 Advance Directives Directive Yes / No Effective Date File Name No Information Encounters Encounter Description Practice Location Reason(s) For Visit Diagnoses Date Provider Providers Copied on Encounter [facility], [address], [place], [place], [id number] , [place] tel: [phone] [facility] - [facility] No Information 3 Kindra Chris. [facility] [place], [address] [place] [address] [address], [place], [address], [place]. tel: [phone] Office/Outpa tient Visit,Est, Mod [facility], [address], [place], [place], [id number] , [place] tel: [phone] [facility] - [facility] Spinal stenosis, lumbar region with neurogenic claudication 3 Camille Bob. [facility] [place], [address] [place] [address], [address], [place], [address], [place]. tel: [phone] Referring Provider: Lisbeth Thomas, [facility] [address], [address], [place], [address]. [phone] OFFICE/OUTPA TIENT VISIT EST Phone [facility], [address], [place], [place], [id number] , [place] tel:[phone] [facility] No Information 3 Obrien Lisbeth. [facility] [place], [address], [address], [place], [address], [place]. tel:[phone] Referring Provider: Lisbeth Thomas, [facility] [address], [address], [place], [address]. tel:[phone] Office/Outpa tient Visit,Est, Mod [facility], [address], [place], [place], [id number] , [place] [phone] [facility] Low back pain, unspecifiedOther specified soft tissue disorders 3 Obrien Lisbeth. [facility] [place], [address], [address], [place], [address], [place]. tel:[phone] Referring Provider: Lisbeth Thomas, [facility] [address], [address], [place], [address]. tel:[phone] Followup Hospital Care, Moderate [facility], [address], [place], [place], [id number] , [place] [phone] [facility] No Information 2 Nicolasana paula Velez. [facility], [address], [address], [place], [address], [place]. tel:[phone] Referring Provider: Rudy Riddle, [facility] [address], [address]. tel:[phone] Family History Family Member Type Diagnosis Age At Onset No Information Payers Payer name Insurance type Covered alliance party ID Authorjaimea bhargav(s) [place] [id number] Medicare [facility] [id number] 1 Social History Type Description Quantity Date [...]
--- OUTSIDE RECORDS SUMMARY | 2023-07-05 10:35 | XMS_ITS | Clinical Summary ---
Author Name Unknown Organization [employer] [facility] Address [place], [place] [address] Care Team Providers Care Retail Coordinator Name Role Phone Casa Lucia MD Unavailable Unavailable Rudy Riddle MD Unavailable [phone] Rudy Riddle MD Primary Care Provider + Allergies Active Allergy Reactions Criticality Noted Date Comments Gabapentin Other - Describe In Comment Field Medium 08/04/2020 Dizzy, memory issue Dizzy, memory issue Morphine Itching 02/04/2010 After 3 days of use Pregabalin Anaphylaxis,Itching High 02/16/2017 swell swell Fqkarwq-Hix-Afp Reductase Inhibitors Myalgia 02/13/2014 Medications Medication Sig [...] Comments Blood Pressure 162/87 07/21/2022 9:21 PM RENTAL COUNTER CLERK Pulse 100 07/21/2022 9:21 PM RENTAL COUNTER CLERK Temperature 37.1 ??C (98.8 ??F) 07/21/2022 8:51 PM CS T Respiratory Rate 18 07/21/2022 8:51 PM RENTAL COUNTER CLERK Oxygen Saturation 96% 07/21/2022 9:21 PM RENTAL COUNTER CLERK Inhaled Oxygen Concentration - - Weight 83.9 kg (185 lb) 07/21/2022 5:35 PM RENTAL COUNTER CLERK Height 175.3 cm (5' 9) 07/21/2022 5:35 PM RENTAL COUNTER CLERK Body Mass Index 27.32 07/21/2022 5:35 PM RENTAL COUNTER CLERK Plan of Treatment Health Maintenance Due Date [...] age 77 05/12/203205/12, 02/04/2006 [facility] Tdap Completed 08/16/2016 Pneumococcal series for age [...] Preferences, Provider to review later Care Teams Retail Coordinator Relationship Specialty Start Date End Date Rudy Riddle MD [address] [place] [address] PCP - General Family Practice 05/25/22 Casa Lucia MD [address] [facility] [address] [place] [address] Ophthalmology Ophthalmology Surgery 12/22/11 Rudy Riddle MD [address] [facility] [place] [address] Family Practice 05/07/22
--- OUTSIDE RECORDS SUMMARY | 2023-07-05 10:36 | XMS_ITS | Clinical Summary ---
Author Name Unknown Organization [facility] Address [address] [place] [address] Care Team Providers Care Bariatric Program Coordinator Name Role Phone Elsewhere, Pcp Primary Care Provider Unavailabl e Source Comments Patient records contain information from all sites at [facility]. For routine questions regarding patient records, call [phone] during business hours, M-F 8:00 AM - 5:00 PM Central Time. Record requests for emergency care only can be directed to [phone] at any time.[facility] Allergies Active Allergy Reactions Criticality Noted Date Comments Gabapentin Other (see comments) Medium 08/04/2020 Dizzy, memory issue Morphine Itching,Rash Medium 02/14/2012 itchy Pregabalin Anaphylaxis High 02/16/2017 swell Loclqdp-Gps-Mms Reductase Inhibitors Myalgia Low 02/13/2014 Medications Medication [...] TAKE ONE CAPSULE BY MOUTH EVERY DAY MORGUE ATTENDANT 0 01/14/2022 Active amLODIPine (NORVASC) 5 mg tablet Take 1 tablet (5 mg total) by mouth daily. 90 tablet 3 07/05/2022 Active allopurinoL (ZYLOPRIM) 100 mg tablet Take [...] a day. 360 tablet 3 04/26/2023 Active calcium acetate,phosphat bind, (PHOSLO) 667 mg (169 mg calcium) capsule Take 2 capsules (1,334 mg total) by mouth 3 (three) times a day with meals. 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 04/26/2023 Orders Only Division of Nephrology and Hypertension in [place], [place] [address] [place] [address] Haseeb Menon Jr., D.O. 04/15/2023 Orders Only Division of Nephrology and Hypertension in [place], [place] [address] [place] [address] Haseeb Menon Jr., D.O. Chronic Kidney Disease Stage 5 Glomerular Filtration Rate Less Than 15 (HCC) (Primary Dx); Hypertension And Chronic Kidney Disease Stage 4 (HCC); Sleep Disorder from Last 3 Months Immunizations Name Administration [...] often do you attend latter day or oriental orthodox serv ices? 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 Gender Identity Male 08/31/2019 2:40 PM CDT [...] Cologuard 1950 Depression Monitoring (PHQ-9) 1950 Hepatitis B Vaccines (1 of 3 - Risk 3-dose series) 2012 Zoster Vaccines (1 of 2) 03/29/2012 02/02/2012 Dilated Eye Exam 08/19/2017 08/19/2016 FIT 08/24/2017 08/24/2016 Diabetic Office Visit with F oot Exam 07/22/2018 07/22/2017, 06/22/2016 Diabetes Education 05/01/2019 05/01/2018, 09/23/2016 Lung Cancer Screening 05/07/2021 05/07/2020 COVID-19 Vaccine (2022-2 4 season) 2023 10/27/2021, 04/02/2021, 08/09/2020, Additional history exists Fall Risk Screen (Annual) 05/16/2023 Hemoglobin A1C 05/28/2023 11/25/2022, 2 08/2022, 02/10/2021, Additional history exists Creatinine Level (Kidney Fun ction Test) 02/18/2024 02/17/2023, 02/16/2023, 01/11/2023, Additional history exists Potassium Level 02/18/2024 02/17/2023, 10/0 08/2022, 01/11/2023, Additional history exists Sodium Level [...] history exists Medical Devices Implanted Type Area Middleware Systems Architect Device Identifier Shelf Expiration Date Model / Serial / Lot Patch Vasc Bovine.08cm X 8cm - Flores [id number] Implanted:Qty: 1 on 04/04/2017 Mesh or Patch Other/Legacy - See Implant Description Synovis Description:Device Manufactu rer - Synovis. Body Location - Other. Vascular. Device Status Text - [id number]. Ocular Lens-10/29/2007 Implanted:10/28 by Nato Dougherty, JULIÁN, C.N.P., R.N. 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 Eye L. Eye R. Device Status Text - OculrLens. Conversions - Default Historical Implant Device Implanted:05/27 (Quantity not on file) Ocular Lens Left: Eye Description:Body Location - Eye L. Device Status Text - OculrLens. Stent Vbx [id number] - Flores [id number] Implanted:Qty: 1 on 03/04/2017 Vascular Graft Other/Legacy - See Implant Description [place] Description:Device Manufactu rer - [employer] [place] [employer] Body Location - Other. n/a. Device Status Text - [id number]. Stent Zilver Ptx 6mm X 60mm - Flores [id number] Implanted:Qty: 1 on 04/04/2017 Vascular Stent Other/Legacy - See Implant Description [employer]. Description:Device Manufactu rer - Tutor. Body Location - Other. Left. Device Status Text - [id number]. Stent Zilver Ptx 6mm X 80mm - [id number] Implanted:Qty: 1 on 08/31/2017 Vascular Stent Right: Other/Legacy - See Implant Description [employer]. / [id number] / Description:Device Manufactu rer - [employer]. Body Location - Right. Device Status Text - [id number]. Stnt Innova Otw [id number] - [id number] Implanted:Qty: 1 on 04/18/2018 by Kemar Velásquez M.B.B.S. at [facility] Vascular Stent [employer] [place] [employer] 05/23/2020 [id number] / / [id number] Stnt Innova Otw [id number] - [id number] Implanted:Qty: 1 on 05/11/2019 by ShKemar wilder M.B.B.S. at [facility] Vascular Stent Left: Leg [place] [employer] 09/05/2020 [id number] / / [id number] Advance Directives For more information, please contact: [phone] Latest Code Status on File Code Status [...] Answer Comments Full Code: Discussed Care Teams Bariatric Program Coordinator Relationship Specialty Start Date End Date Elsewhere, Pcp PCP - General Family Medicine 01/29/20
--- OUTSIDE RECORDS SUMMARY | 2023-07-05 10:36 | XMS_ITS | Encounter Summary ---
Author Name Unknown Organization [facility] Address [address] [place] [address] Care Team Providers Care Boarder Steam Name Role Phone Elsewhere, Pcp Primary Care Provider Unavailabl e Reason for Referral * Outpatient (Routine) - Closed Specialty Diagnoses / Procedures Referred By Robi hong Referred To Contact Diagnoses Follow Up Examination Status Post Surgery Peripheral Arterial Disease (HCC) Procedures Lower Extremity Arterial (MIMI) - Exercise (Claudication) Jayjay Pak P.A.-C. [address] [place] [phone] [facility] Referral ID Status Reason Start Date Expiration Date Visits Re quested Visits Authorized [id number] Closed 02/23/2022 02/23/2023 1 1 Reason for Visit * Outpatient (Routine) - Closed Specialty Diagnoses / Procedures Referred By Robi hong Referred To Contact Diagnoses Follow Up Examination Status Post Surgery Peripheral Arterial Disease (HCC) Procedures Lower Extremity Arterial (MIMI) - Exercise (Claudication) Jayjay Pak P.A.-C. [address] [place] [phone] [facility] Referral ID Status Reason Start Date Expiration Date Visits Re quested Visits Authorized [id number] Closed 02/23/2022 02/23/2023 1 1 Encounter Details Date Type Department Care Team (Latest Contact Info) Description 03/03/2023 8:01 AM CDT - 03/03/2023 8:20 AM CDT Hospital Encounter Department of Vascular Medicine in [place], [place] [address] [place] [address] Jayjay Pak P.A.-C. [address] [place] [address] Follow Up Examination Status Post Surgery; Peripheral [...] How often do you attend jew or taoist serv ices? 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 90 tablet 3 07/05/[address] tablet Take 81 [...] ONE CAPSULE BY MOUTH EVERY DAY SENIOR CARE 0 01/14/2022 nortriptyline (PAMELOR) 50 mg capsule [...] this encounter Results * Lower Extremity Arterial (MMII) - Exercise (Claudication) (03/03/2023 11:37 AM CDT) [...] documented as of this encounter Care Teams Boarder Steam Relationship Specialty Start Date End Date Elsewhere, Pcp PCP - General Family Medicine 01/29/20 documented as of this encounter
--- OUTSIDE RECORDS SUMMARY | 2023-07-05 10:36 | XMS_ITS ---
Author Name Unknown Organization [facility] Address [address] [place] [address] Care Team Providers Care Senior Administrative Assistant Name Role Phone Unavailable Unavailable Unavailable Surgery Details Not on file Complications Check Surgery Details section. Procedure Estimated Blood Loss Check Surgery Details section. Procedure Findings Check Surgery Details section. Procedure Specimens Taken Check Surgery Details section.
--- OUTSIDE RECORDS SUMMARY | 2023-07-05 10:36 | XMS_ITS | Encounter Summary ---
Author Name Unknown Organization [facility] Address [address] [place] [address] Care Team Providers Care Air Compressor Mechanic Name Role Phone Elsewhere, Pcp Primary Care Provider Unavailabl e Encounter Details Date Type Department Care Team (Late st Contact Info) Description 04/26/2023 Orders Only Division of Nephrology and Hypertension in [place], [place] [address] [place] [address] Haseeb Menon Jr., D.O. [address] [place] [address] Social History Tobacco Use Types Packs/Day Years [...] How often do you attend nondenominational or uatsdin serv ices? Never 03/24/2021 Do [...] living situation today? I have a [facility] place to live 10/26/2022 Education Answer Date Recorded What is the highest level of school you have completed or the highest degree you have received? 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
--- OUTSIDE RECORDS SUMMARY | 2023-07-05 10:36 | XMS_ITS | Referral Summary ---
Author Name Unknown Organization [facility] Address [address] [place] [address] Care Team Providers Care Toy Painter Name Role Phone Elsewhere, Pcp Primary Care Provider Unavailabl e Source Comments Patient records contain information from all sites at [facility]. For routine questions regarding patient records, call [phone] during business hours, M-F 8:00 AM - 5:00 PM Central Time. Record requests for emergency care only can be directed to [phone] at any time.[facility] Encounters Date Type Department Care Team Description 06/17/2023 Orders Only Division of Nephrology and Hypertension in [place], [place] [address] [place] [address] Haseeb Menon Jr., D.O. 04/26/2023 Orders Only Division of Nephrology and Hypertension in [place], [place] [address] [place] [address] Haseeb eMnon Jr., D.O. 04/15/2023 Orders Only Division of Nephrology and Hypertension in [place], [place] [address] [place] [address] Haseeb Menon Jr., D.O. Chronic Kidney Disease Stage 5 Glomerular Filtration Rate Less Than 15 (HCC) (Primary Dx); Hypertension And Chronic Kidney Disease Stage 4 (HCC); Sleep Disorder from Last 3 Months Allergies Active Allergy Reactions Criticality Noted Date Comments Gabapentin Other (see comments) Medium 08/04/2020 Dizzy, memory issue Morphine Itching,Rash Medium 02/14/2012 itchy Pregabalin Anaphylaxis High 02/16/2017 swell Rauxhaz-Gqh-Ubu Reductase Inhibitors Myalgia Low 02/13/2014 Medications Medication [...] MOUTH EVERY DAY SKILLED NURSING 0 01/14/2022 Active amLODIPine (NORVASC) 5 mg [...] 04/21/2018 Restless Leg Syndrome 01/12/2018 Atherosclerosis Of [place] Ar 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 08/08/2017 Hyperlipidemia 07/22/2017 Ulcer Leg Left 04/19/2017 Ulcer Toe Left 04/19/2017 Atherosclerosis Of [place] Ar teries Of Left Leg With Ulceration Of Unspecified Site 04/19/2017 Peripheral Arterial Disease 02/16/2017 Hypertension NOS 02/16/2017 Hypertension And Chronic Kidney Disease Stage 4 09/23/2016 Overview: Hypertension (HTN) And CKD Stage 1-4 Wireless Network Engineer Use Of Insulin Active 09/23/2016 Overview: Wireless Network Engineer Use Of Insulin Active Depression Major Recurrent [...] How often do you attend faith or hindu serv ices? Never 03/24/2021 Do [...] Answer Date Recorded PHQ-2 Score 0 10/20/2018 [facility] [place] of Occupat ional Health - Occupational Stress [...] living situation today? I have a [facility] place to live 10/26/2022 Education Answer Date Recorded What is the highest level of school you have completed or the highest degree you have received? 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 Body Location - Other. Vascular. Device Status Text - [id number]. Ocular Lens-10/29/2007 Implanted:10/28 by Nato Dougherty, JULIÁN, C.N.P., R.N. 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 Eye L. Eye R. Device Status Text - OculrLens. Conversions - Default Historical Implant Device Implanted:05/27 (Quantity not on file) Ocular Lens Left: Eye Description:Body Location - Eye L. Device Status Text - OculrLens. Stent Vbx [id number] - [id number] Implanted:Qty: 1 on 03/04/2017 Vascular Graft Other/Legacy - See Implant Description [place] Description:Device Manufactu rer - [employer] [place] [employer] Body Location - Other. n/a. Device Status Text - [id number]. Stent Zilver Ptx 6mm X 60mm - Flores [id number] Implanted:Qty: 1 on 04/04/2017 Vascular Stent Other/Legacy - See Implant Description Cook [employer]. Description:Device Manufactu rer - Cook [employer]. Body Location - Other. Left. Device Status Text - [id number]. Stent Zilver Ptx 6mm X 80mm - Flores [id number] Implanted:Qty: 1 on 08/31/2017 Vascular Stent Right: Other/Legacy - See Implant Description [employer] / [id number] / Description:Device Manufactu rer - [employer]. Body Location - Right. Device Status Text - [id number]. Stnt Innova Otw [id number] - [id number] Implanted:Qty: 1 on 04/18/2018 by Kemar Velásquez M.B.B.S. at [facility] Vascular Stent [place] [employer] 05/23/2020 [id number] / / [id number] Stnt Innova Otw [id number] - [id number] Implanted:Qty: 1 on 05/11/2019 by Kemar Velásquez M.B.B.S. at [facility] Vascular Stent Left: Leg [place] [employer] 09/05/2020 [id number] / / [id number] Advance Directives For more information, please contact: [phone] Latest Code Status on File Code Status [...] Answer Comments Full Code: Discussed Care Teams Toy Painter Relationship Specialty Start Date End Date Elsewhere, Pcp PCP - General Family Medicine 01/29/20
--- OUTSIDE RECORDS SUMMARY | 2023-07-05 10:36 | XMS_ITS | Encounter Summary ---
Author Name Unknown Organization [facility] Address [address] [place] [address] Care Team Providers Care Meteorology Instructor Name Role Phone Elsewhere, Pcp Primary Care Provider Unavailabl e Encounter Details Date Type Department Care Team (Late st Contact Info) Description 06/17/2023 Orders Only Division of Nephrology and Hypertension in [place], [place] [address] [place] [address] Haseeb Menon Jr., D.O. [address] [place] [address] Social History Tobacco Use Types Packs/Day Years [...] often do you attend latter day or taoism serv ices? 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
--- OUTSIDE RECORDS SUMMARY | 2023-07-05 10:36 | XMS_ITS | Encounter Summary ---
Author Name Unknown Organization [facility] Address [address] [place] [address] Care Team Providers Care Dental Assistant Instructor Name Role Phone Elsewhere, Pcp Primary Care Provider Unavailabl e Reason for Referral * Outpatient (Routine) - Closed Specialty Diagnoses / Procedures Referred By Robi hong Referred To Contact Diagnoses Follow Up Examination Status Post Surgery Peripheral Arterial Disease (HCC) Procedures US Lower Extremity Arteries Bilateral US Lower Extremity Artery Graft Bilateral Jayjay Pak P.A.-C. [address] [place] [address] [facility] Referral ID Status Reason Start Date Expiration Date Visits Re quested Visits Authorized [id number] Closed 02/23/2022 02/23/2023 1 1 Reason for Visit * Outpatient (Routine) - Closed Specialty Diagnoses / Procedures Referred By Robi hong Referred To Contact Diagnoses Follow Up Examination Status Post Surgery Peripheral Arterial Disease (HCC) Procedures US Lower Extremity Arteries Bilateral US Lower Extremity Artery Graft Bilateral Jayjay Pak P.A.-C. [address] [place] [phone] [facility] Referral ID Status Reason Start Date Expiration Date Visits Re quested Visits Authorized [id number] Closed 02/23/2022 02/23/2023 1 1 Encounter Details Date Type Department Care Team (Latest Contact Info) Description 03/03/2023 8:21 AM CDT - 03/03/2023 11:59 PM CDT Hospital Encounter Department of Radiology, [facility], in [place], [place] [address] [place] [address] Jayjay Pak P.A.-C. [address] [place] [address] Follow Up Examination Status Post Surgery; Peripheral [...] How often do you attend baptist or baptist serv ices? 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 LEFT: New stenosis of the [place] proximal superficial femoral artery. Widely patent mid [...] femoral: New elevated Doppler velocities in the [place] proximal vessel (up to 166 cm/sec), consistent [...] artery stents. LEFT: New stenosis of the [place] proximal superficial femoral artery.Widely patent mid SFA stents. Similar stenosis in the posterior tibial artery. Jayjay ETIENNE US PROCEDURE S documented in this encounter Visit Diagnoses Diagnosis Follow Up Examination Status Post Surgery Peripheral Arterial Disease (HCC) documented in this encounter Additional Health Concerns Assessment Noted Time PHQ-9 Depression Total Score: 3 01/04/20 18 10:38 AM CDT documented as of this encounter Care Teams Dental Assistant Instructor Relationship Specialty Start Date End Date Elsewhere, Pcp PCP - General Family Medicine 01/29/20 documented as of this encounter
--- OUTSIDE RECORDS SUMMARY | 2023-07-05 10:36 | XMS_ITS | Encounter Summary ---
Author Name Unknown Organization [facility] Address [address] [place] [address] Care Team Providers Care Comic Writer Name Role Phone Elsewhere, Pcp Primary Care Provider Unavailabl e Reason for Visit * Outpatient (Routine) - Closed Specialty Diagnoses / Procedures Referred By Robi t Referred To Contact Vascular Medicine Jayjay Pak, XiA.-CFei [address] [place] [address] [phone] [facility] Referral ID Status Reason Start Date Expiration Date Visits Re quested Visits Authorized [id number] Closed 02/23/2022 02/22/2025 1 1 Encounter Details Date Type Department Care Team (Late st Contact Info) Description 03/03/2023 1:00 PM CDT Office Visit Department of Vascular Medicine in [place], [place] [address] [place] [phone] Jayjay Pka, PFeiAFei-CFei [address] [place] [phone] Follow Up Examination Status Post Surgery (Primary [...] week 03/24/2021 How often do you attend jehovah's witness or quaker serv ices? 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 He has not seen a franchise sales manager recently. Overall the swelling and discoloration [...] artery stents. LEFT: New stenosis of the [place] proximal superficial femoral artery. Widely patent mid SFA stents. Similar stenosis in the posterior tibial artery. U/S: 1. Patent bilateral iliac artery stents with unchanged stenoses on the right. 2. 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 [...] colleague's recommendations, and he will see a franchise sales manager. I will follow up with him [...] documented as of this encounter Care Teams Comic Writer Relationship Specialty Start Date End Date Elsewhere, Pcp PCP - General Family Medicine 01/29/20 documented as of this encounter
--- OUTSIDE RECORDS SUMMARY | 2023-07-05 10:36 | XMS_ITS | Encounter Summary ---
Author Name Unknown Organization [facility] Address [address] [place] [address] Care Team Providers Care Patternmaker Grader Name Role Phone Elsewhere, Pcp Primary Care Provider Unavailabl e Reason for Visit * Reason Comments Med Refill Encounter Details Date Type Department Care Team ([facility] st Contact Info) Description 03/13/2023 Refill Division of Nephrology and Hypertension in [place], [place] [address] [place] [address] Haseeb Menon Jr., D.O. [address] [place] [address] Med Refill Social History Tobacco Use Types [...] How often do you attend rastafari or adventist serv ices? Never 03/24/2021 Do [...] PHQ-2 Score 0 10/20/2018 [facility] - Occupational Stress Questionnaire Answer Date [...] your living situation today? I have a [facility] place to live 10/26/2022 Education Answer Date Recorded What is the highest level of school you have completed or the highest degree you have received? 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
--- OUTSIDE RECORDS SUMMARY | 2023-07-05 10:36 | XMS_ITS | Encounter Summary ---
Author Name Unknown Organization [facility] Address [address] [place] [address] Care Team Providers Care Finisher Screwdown Name Role Phone Elsewhere, Pcp Primary Care Provider Unavailabl e Reason for Referral * Outpatient (Routine) - Authorized Specialty Diagnoses / Procedures Referred By Robi hong Referred To Contact Sleep Medicine Diagnoses Chronic Kidney Disease Stage 5 Glomerular Filtration Rate Less Than 15 (HCC) Hypertension And Chronic Kidney Disease Stage 4 (HCC) Sleep Disorder Haseeb Menon Jr., D.O. [address] [place] [address] [facility] Referral ID Status Reason Start Date Expiration Date Visits Requested Visits Authorized [id number] Authorized Specialty Services Required 04/15/2023 04/14/2024 1 1 GER STATISTICAL Encounter Details Date Type Department Care Team (Late st Contact Info) Description 04/15/2023 Orders Only Division of Nephrology and Hypertension in [place], [place] [address] [place] [address] Haseeb Menon Jr., D.O. [address] [place] [phone] Chronic Kidney Disease Stage 5 Glomerular Filtration [...] How often do you attend mandaeism or mu-ism serv ices? Never 03/24/2021 Do [...] Answer Date Recorded PHQ-2 Score 0 10/20/2018 [facility]at ional [facility] - [...] living situation today? I have a [facility] place to live 10/26/2022 Education Answer Date Recorded What is the highest level of school you have completed or the highest degree you have received? 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/2021 8:13 PM MANAGER STATISTICAL Gender Identity Male 08/31/2019 2:40 PM CDT [...] as of this encounter Care Teams Finisher Screwdown Relationship Specialty Start Date End Date Elsewhere, Pcp PCP - General Family Medicine 01/29/20 documented as of this encounter
--- OUTSIDE RECORDS SUMMARY | 2023-07-05 10:36 | XMS_ITS | Encounter Summary ---
Author Name Unknown Organization [facility] Address [address] [place] [address] Care Team Providers Care Womens Health Nurse Practitioner Name Role Phone Elsewhere, Pcp Primary Care Provider Unavailabl e Encounter Details Date Type Department Care Team (Late st Contact Info) Description 03/21/2023 Orders Only Division of Nephrology and Hypertension in [place], [place] [address] [place] [address] Haseeb Menon Jr., D.O. [address] [place] [address] Social History Tobacco Use Types Packs/Day Years [...] How often do you attend scientologist or bahai serv ices? 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
--- OUTSIDE RECORDS SUMMARY | 2023-07-05 10:37 | XMS_ITS | Encounter Summary ---
Author Name Unknown Organization [facility] Address [address] [place] [address] Care Team Providers Care Liberal Arts And Humanities Chair Name Role Phone Elsewhere, Pcp Primary Care Provider Unavailabl e Encounter Details Date Type Department Care Team (Latest Contact Info) Description 02/17/2023 9:18 AM CDT - 02/17/2023 11:59 PM CDT Hospital Encounter Department of Laboratory Medicine in [place], [place] [address] [place] [address] Haseeb Menon Jr., D.O. [address] [place] [phone] Hypertension And Chronic Kidney Disease Stage 4 [...] How often do you attend taoist or yazidi serv ices? Never 03/24/2021 Do [...] PHQ-2 Score 0 10/20/2018 [facility] of Occupat ional Health - Occupational Stress [...] living situation today? I have a [facility] place to live 10/26/2022 Education Answer Date Recorded What is the highest level of school you have completed or the highest degree you have received? 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 Gender Identity Male 08/31/2019 2:40 PM CDT [...] Gold Plus, Blood (02/17/2023 9:35 AM CDT) [facility] QuantiFERON-TB Gold Plus Result Negative Negative 02/21/2023 12:00 PM CDT [facility] Comment: No interferon-gamma response to [...] AM CDT 02/19/2023 4:15 PM CDT Narrative [facility] - 02/21/2023 12:00 PM CDT Specimen Information: Specimen ID: [id number] Specimen Type: Blood Specimen Collection Start Date: 02/17/2023 ??9:35 AM Specimen Received Date: 02/19/2023 ??4:15 PM Specimen ID: [id number] Specimen Type: Blood Specimen Collection Start Date: 02/17/2023 ??9:35 AM Specimen Received Date: 02/19/2023 ??4:15 PM Specimen ID: [id number] Specimen Type: Blood Specimen Collection Start Date: 02/17/2023 ??9:35 AM Specimen Received Date: 02/19/2023 ??4:15 PM Specimen ID: [id number] Specimen Type: Blood Specimen Collection Start Date: 02/17/2023 ??9:35 AM Specimen Received Date: 02/19/2023 ??4:16 PM Estiven He Jr.O. LAB MICROBIO LOGY - BLOOD ORDERABLES [facility] [address] [place] [address], [facility] in [address] [address] * HBs Antibody, Serum (02/17/2023 9:35 AM CDT) [facility] HBs Antibody, S Negative 5:03 PM CDT [facility] Comment: ----REFERENCE VALUE---- Unvaccinated: Negative Vaccinated: Positive HBs Antibody, Quantitative, S <3.50 mIU/mL 02/17/2023 5:03 PM CDT [facility] Comment: ----REFERENCE VALUE---- <8.50: Negative 8.50-11.49: Indeterminate >=11.50: Positive Blood (Blood, Venous) 02/17/2023 9:35 AM CDT 02/17/2023 3:36 PM CDT Haseeb Menon Jr., D.O. LAB MICROBIO LOGY - BLOOD ORDERABLES Performing Organization Address [facility] Co de Phone Number [facility] [address] [place] [address] * Hepatitis B Surface Antigen (02/17/2023 9:35 AM CDT) [facility] HBs Antigen, S Nonreactive Nonreactive 02/17/2023 5:03 PM CDT [facility] Blood (Blood, Venous) 02/17/2023 9:35 AM CDT 02/17/2023 3:36 PM CDT Haseeb Menon Jr., D.O. LAB MICROBIO LOGY - BLOOD ORDERABLES Performing Organization Address [facility]/ZIP Co de Phone Number [facility] [address] [place] [address] * HBc Total Ab, Serum (02/17/2023 9:35 AM CDT) [facility] HBc Total Ab, S Negative Negative 02/19/2023 10:09 AM CDT [facility] Blood (Blood, Venous) 02/17/2023 9:35 AM CDT 02/19/2023 8:50 AM CDT Haseeb Menon Jr., D.O. LAB MICROBIO LOGY - BLOOD ORDERABLES [facility] [address] [place] [address] [facility] [address] [place] [address] * HCV Ab Scrn w/Reflex to HCV PCR, Serum (02/17/2023 9:35 AM CDT) Pathologist [facility] HCV Ab Screen, S Negative Negative 02/18/20 3:35 PM CDT [facility] Comment: Biotin has been identified by the machine fixer as a potential interfering substance. Higher concentrations of biotin may be found in multivitamins, hair/nail supplements, and workout supplements. If the result does not match clinical observations, repeat testing after patient refrains from the use of supplements for at least 12 hours. Blood (Blood, Venous) 02/17/2023 9:35 AM CDT 02/17/2023 2:20 PM CDT Narrative [facility] - 02/17/2023 3:35 PM CDT Specimen Information: Specimen ID: [id number] Specimen Type: Blood Specimen Collection Start Date: 02/17/2023 ??9:35 AM Specimen Received Date: 02/17/2023 ??2:20 PM Specimen ID: [id number] Specimen Type: Blood Specimen Collection Start Date: 02/17/2023 ??9:35 AM Specimen Received Date: 02/17/2023 ??2:16 PM Haseeb Menon Jr., D.O. LAB MICROBIO LOGY - BLOOD ORDERABLES [facility] [address] [place] [address], [facility] in [place] [address] [place] [address] * (ABNORMAL) Renal Function Panel (02/17/2023 9:35 AM CDT) Pathologist [facility] Potassium, P 4.4 3.6 - 5.2 mmol/L [...] 9:35 AM CDT 02/17/2023 11:01 AM CDT [facility] - 02/17/2023 4:02 PM CDT Specimen Information: Specimen ID: [id number] Specimen Type: Blood Specimen Collection Start Date: 02/17/2023 ??9:35 AM Specimen Received Date: 02/17/2023 11:01 AM Specimen ID: [id number] Specimen Type: Blood Specimen Collection Start Date: 02/17/2023 ??9:35 AM Specimen Received Date: 02/17/2023 ??3:35 PM Haseeb Menon Jr., D.O. LAB BLOOD AD D-ON Performing Organization Address [facility] Co de Phone Number [facility] [address] [place] [address], [facility] in [place] [address] [place] [address] [facility] [address] [place] [address] * (ABNORMAL) Iron and Total Iron-Binding Capacity [...] LAB BLOOD AD D-ON Performing Organization Address [facility] de Phone Number [facility] [address] [place] [address], [facility] [place] [address] * Ferritin (02/17/2023 9:35 AM CDT) Ferritin, S 385 31 - 409 mcg/L 02/17/2023 1:16 PM CDT [facility] Comment: Biotin has been identified by the machine fixer as a potential interfering substance. Higher concentrations of biotin may be found in multivitamins, hair/nail supplements, and workout supplements. If the result does not match clinical observations, repeat testing after patient refrains from the use of supplements for at least 12 hours. Blood (Blood, Venous) 02/17/2023 9:35 AM CDT 02/17/2023 11:01 AM CDT Haseeb Menon Jr., D.O. LAB BLOOD AD D-ON [facility] [address] [place] [address], [facility] in [place] [address] [place] [address] * (ABNORMAL) CBC with Differential, Blood (02/17/2023 [...] CDT 02/17/2023 9:36 AM CDT Haseeb Menon Jr., D.O. LAB BLOOD AD D-ON [facility] [address] [place] [address], [facility] FB60 [facility] in [place] [address] [place] [address] documented in this encounter Visit Diagnoses Diagnosis Hypertension And Chronic Kidney Disease Stage 4 (HCC) 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) Anemia Of Chronic Renal Disease documented in this encounter Additional Health Concerns Assessment Noted Time PHQ-9 Depression Total Score: 3 01/04/20 18 10:38 AM CDT documented as of this encounter Care Teams Liberal Arts And Humanities Chair Relationship Specialty Start Date End Date Elsewhere, Pcp PCP - General Family Medicine 01/29/20 documented as of this encounter
--- OUTSIDE RECORDS SUMMARY | 2023-07-05 10:37 | XMS_ITS | Encounter Summary ---
Author Name Unknown Organization [facility] Address [address] [place] [address] Care Team Providers Care English Adjunct Faculty Name Role Phone Elsewhere, Pcp Primary Care Provider Unavailabl e Encounter Details Date Type Department Care Team (Late st Contact Info) Description 02/16/2023 10:41 AM CDT Anesthesia Event [facility] [address] [place] [address] Uriel Lin M.D. [address] [place] [address] Anesthesia Record Procedure Summary Procedure Name Responsible [...] week 03/24/2021 How often do you attend baptism or latter-day serv ices? Never 03/24/2021 Do you belong to any clubs o r organizations such as baptism groups, unions, fraternal or athletic groups, or [...] Recorded PHQ-2 Score 0 10/20/2018 [facility] - Occupational Stress Questionnaire Answer [...] your living situation today? I have a [facility] place to live 10/26/2022 Education Answer Date Recorded What is the highest level of school you have completed or the highest degree you have received? 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 in [place], [place] Providers: Tee Celeste M.D., Ph.D. Pertinent components of the patient's history including current problem list, medical history, surgical history, family history, social history, medications and allergies were reviewed. Present illness and pre-op diagnosis were confirmed. The planned surgery / procedure was verified with the patient / legal guardian. 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 Risks/Benefits/Alternatives of Blood transfusion discussed with patient [...] Procedure Summary Date: 02/16/23 Room / Location: [address] / [facility] in [place], [place] Anesthesia Start: 1041 Anesthesia Stop: Procedure: [...] Hydration status: euvolemic Norman Franklin M.D., Ph.D. Highway Safety Engineer [place]1 * Anesthesia Procedure Notes - Edward [...] fellow participated in the procedure, and the golf tournament consultant was present for the entire procedure. [...] fellow participated in the procedure, and the golf tournament consultant was present for the entire procedure. [...] documented as of this encounter Care Teams English Adjunct Faculty Relationship Specialty Start Date End Date Elsewhere, Pcp PCP - General Family Medicine 01/29/20 documented as of this encounter
--- OUTSIDE RECORDS SUMMARY | 2023-07-05 10:37 | XMS_ITS | Encounter Summary ---
Author Name Unknown Organization [facility] Address [address] [place] [address] Care Team Providers Care Grinder And Plater Name Role Phone Elsewhere, Pcp Primary Care Provider Unavailabl e Encounter Details Date Type Department Care Team (Latest Contact Info) Description 03/02/2023 10:30 AM CDT Clinical Communication Virtual Review in [place], [place] [address] [place], [place] [phone] Canceled Social History Tobacco Use Types Packs/Day [...] How often do you attend lutheran or sikhism serv ices? Never 03/24/2021 Do [...] Date Recorded PHQ-2 Score 0 10/20/2018 [facility] [place] of Occupat ional Health - Occupational Stress [...] living situation today? I have a [facility] place to live 10/26/2022 Education Answer Date Recorded What is the highest level of school you have completed or the highest degree you have received? 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
--- OUTSIDE RECORDS SUMMARY | 2023-07-05 10:37 | XMS_ITS | Encounter Summary ---
Author Name Unknown Organization [facility] Address [address] [place] [address] Care Team Providers Care Mate Ship Name Role Phone Elsewhere, Pcp Primary Care Provider Unavailabl e Encounter Details Date Type Department Care Team (Latest Contact Info) Description 02/16/2023 7:12 AM CDT - 02/16/2023 6:10 PM CDT Hospital Encounter Outpatient Surgery Unit in [place], [place] [address] [place] [address] Tee Celeste M.D., Ph.D. [address] [place] [phone] Discharge Disposition: Home or Self Care Social [...] week 03/24/2021 How often do you attend episcopalian or faith serv ices? Never 03/24/2021 Do you belong to any clubs o r organizations such as episcopalian groups, unions, fraternal or athletic groups, or [...] Answer Date Recorded PHQ-2 Score 0 10/20/2018 [facility] of Occupat ional Health [...] your living situation today? I have a [facility] place to live 10/26/2022 Education Answer Date Recorded What is the highest level of school you have completed or the highest degree you have received? 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 Gender Identity Male 08/31/2019 2:40 PM [...] TAKE ONE CAPSULE BY MOUTH EVERY DAY SNUFF MAKER 0 01/14/2022 nortriptyline (PAMELOR) 50 mg capsule [...] Filtration Rate Less Than 15 (HCC) A rn first assistant actively participated and was necessary for [...] (ABNORMAL) Glucose, POCT (02/16/2023 5:28 PM CDT) Pathologist [facility] Glucose, POCT, B 281(H) 70 - 140 mg/dL 02/16/2023 5:34 PM CDT PCDE Site Capillary 02/16/2023 5:34 PM CDT PCDE Last Intake <1 hour 02/16/2023 5:34 PM CDT PCDE Blood 02/16/2023 5:28 PM CDT 02/16/2023 5:34 PM CDT Unknown Provider LAB POCT ORDERABLES- MANUAL Performing Organization Address City/[facility]/ZIP Co de Phone Number POC [facility] [address] [place], [place] [phone] [place] [address] PCDE [facility] POC 200 [place] [address] * (ABNORMAL) Glucose, POCT (02/16/2023 3:15 PM CDT) Glucose, POCT, B 191(H) 70 - 140 mg/dL 02/16/2023 3:17 PM CDT PCDE Site Capillary 02/16/2023 3:17 PM CDT PCDE Blood 02/16/2023 3:15 PM CDT 02/16/2023 3:17 PM CDT Unknown Provider LAB POCT ORDERABLES- MANUAL Performing Organization Address City/[facility] Co de Phone Number POC [facility] 200 [place] [address], [facility] PCDE [facility] POC 200 [place] [address] * DX Abdomen Portable Anterior Posterior 1 [...] PORTABLE ANTERIOR POSTERIOR 1 VIEW Procedure Note Boyum, Norman H, M.D. - 02/16/2023 EXAM: DX ABDOMEN PORTABLE ANTERIOR POSTERIOR 1 VIEW IMPRESSION: No comparison. Negative for postoperative purposes. Peritoneal dialysiscatheter projects over the pelvis. Nonobstructive bowel gas pattern. Moderate stoolburden. Angela Rodriguez M.D. IMG DIAGNOSTIC IMAG ING PROCEDURES * (ABNORMAL) Glucose, POCT (02/16/2023 2:15 PM CDT) Pathologist [facility] Glucose, POCT, B 173(H) 70 - 140 mg/dL 02/16/2023 2:17 PM CDT PCDE Site Capillary 02/16/2023 2:17 PM CDT PCDE Blood 02/16/2023 2:15 PM CDT 02/16/2023 2:17 PM CDT Unknown Provider LAB POCT ORDERABLES- MANUAL Performing Organization Address City/[facility] Co de Phone Number POC [facility] [address] [place], [place] [phone] [place] [address] PCDE [facility] POC [address] [place] [address] * (ABNORMAL) Phosphorus Inorganic (02/16/2023 1:04 PM CDT) [facility] Phosphorus (Inorganic), S 6.2(H) 2.5 - 4.5 mg/dL 02/16/2023 1:58 PM CDT DTL Blood (Blood, Venous) 02/16/2023 1:04 PM CDT 02/16/2023 1:41 PM CDT Uriel Lin M.D. LAB BLOOD ADD-ON Performing Organization Address City/[facility]/ZIP Co de Phone Number [facility] 200 [place] [address], [facility] 200 [place] [address] * (ABNORMAL) CBC without Differential (02/16/2023 1:04 PM CDT) [facility] Hemoglobin 8.7(L) 13.2 - 16.6 g/dL [...] CDT Uriel Lin M.D. LAB BLOOD ADD-ON [facility] [address] [place] [address], [facility] METH [facility] [place] [address] [place] [address] * (ABNORMAL) Basic Metabolic Panel (02/16/2023 1:04 [...] M.D. LAB BLOOD ADD-ON Performing Organization Address City/[facility]/ZIP Co de Phone Number [facility] 200 [place] [address], [facility] METH [facility] 200 [place] [address] * Glucose, POCT (02/16/2023 12:04 PM CDT) Glucose, POCT, B 108 70 - 140 mg/dL 02/16/2023 12:07 PM CDT PCDE Site Capillary 02/16/2023 12:07 PM CDT PCDE Blood 02/16/2023 12:0 4 PM CDT 02/16/2023 12:07 PM CDT Unknown Provider LAB POCT ORDERABLES- MANUAL POC [facility] [address] [place] [address], [facility] PCDE [facility] POC 200 [place] [address] * Glucose, POCT (02/16/2023 10:23 AM CDT) Glucose, POCT, B 112 70 - 140 mg/dL 02/16/2023 10:33 AM CDT PCDE Site Capillary 02/16/2023 10:33 AM CDT PCDE Blood 02/16/2023 10:2 3 AM CDT 02/16/2023 10:33 AM CDT Unknown Provider LAB POCT ORDERABLES- MANUAL [facility] [address] [place] [address], [facility] PCDE [facility] POC 200 [place] [address] * Glucose, POCT (02/16/2023 8:23 AM CDT) Glucose, POCT, B 106 70 - 140 mg/dL 02/16/2023 8:24 AM CDT PCDE Blood 02/16/2023 8:23 AM CDT 02/16/2023 8:25 AM CDT Unknown Provider LAB POCT ORDERABLES- MANUAL Performing Organization Address City/[facility] Co de Phone Number POC [facility] [address] [place] [address], [facility] PCDE [facility] POC 200 [place] [address] documented in this encounter Visit Diagnoses Diagnosis [...] (Given - Provid er: Glenn Sarabia APRN, MANAGING BROKER) insulin aspart U-100 injection 2 Units (NovoLOG FlexPen) (COMPLETED) 2 Units, subcutaneous, Once, On Tue02/16/23 at 1515, For 1 dose, PACU & Post-Op 1526 (Given - Provid er: Aubree Chávez R.N.) ketamine injection 5 mg (KETALAR) (COMPLETED) [...] 6 hours 1312 (Given - Provid er: Vikram BobbyN.) acetaminophen tablet 650 mg (TYLENOL) 650 mg, [...] 1416 1721 (Given - Provid er: Marie J Nitin, R.N., C.M.S.R.N.) oxyCODONE IR tablet 5 mg [...] documented as of this encounter Care Teams Mate Ship Relationship Specialty Start Date End Date Elsewhere, Pcp PCP - General Family Medicine 01/29/20 documented as of this encounter
--- OUTSIDE RECORDS SUMMARY | 2023-07-05 10:37 | XMS_ITS | Encounter Summary ---
Author Name Unknown Organization [facility] Address [address] [place] [address] Care Team Providers Care Faucet Polisher Name Role Phone Elsewhere, Pcp Primary Care Provider Unavailabl e Encounter Details Date Type Department Care Team (Latest Contact Info) Description 02/17/2023 9:18 AM CDT - 02/17/2023 11:59 PM CDT Hospital Encounter Department of Laboratory Medicine in [place], [place] [address] [place] [address] Hasebe Menon Jr., D.O. [address] [place] [phone] Hypertension And Chronic Kidney Disease Stage 4 [...] How often do you attend orthodox or mormonism serv ices? Never 03/24/2021 Do [...] Answer Date Recorded PHQ-2 Score 0 10/20/2018 [facility] [place] of Occupat ional Health - Occupational Stress [...] your living situation today? I have a [facility] place to live 10/26/2022 Education Answer Date Recorded What is the highest level of school you have completed or the highest degree you have received? 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 LAB URINE OR DERABLES [facility] [address] [place] [address], [facility] [address] [facility] in [place] [address] [place] [address] * (ABNORMAL) Urinalysis with Microscopic: Urine, Voided [...] 8.0 02/17/2023 10:03 AM CDT FB60 Specific [place] 1.015 1.001 - 1.035 02/17/2023 10:03 AM [...] URINE OR DERABLES Performing Organization Address City/State/[facility] Co de Phone Number [facility] [address] [facility] in [place] [address] [place] [address] documented in this encounter Visit Diagnoses Diagnosis Hypertension And Chronic Kidney Disease Stage 4 (HCC) 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) Anemia Of Chronic Renal Disease documented in this encounter Additional Health Concerns Assessment Noted Time PHQ-9 Depression Total Score: 3 01/04/20 18 10:38 AM CDT documented as of this encounter Care Teams Faucet Polisher Relationship Specialty Start Date End Date Elsewhere, Pcp PCP - General Family Medicine 01/29/20 documented as of this encounter
--- OUTSIDE RECORDS SUMMARY | 2023-07-05 10:37 | XMS_ITS | Encounter Summary ---
Author Name Unknown Organization [facility] Address [address] [place] [address] Care Team Providers Care Councillor Aboriginal Land Council Name Role Phone Elsewhere, Pcp Primary Care Provider Unavailabl e Reason for Referral * Outpatient (Routine) - Closed Specialty Diagnoses / Procedures Referred By Robi hong Referred To Contact Diagnoses Follow Up Examination Status Post Surgery Peripheral Arterial Disease (HCC) Procedures US Aorta Iliac Arteries Bilateral with Doppler Jayjay Pak P.A.-C. [address] [place] [phone] [facility] Referral ID Status Reason Start Date Expiration Date Visits Re quested Visits Authorized [id number] Closed 02/23/2022 02/23/2023 1 1 Reason for Visit * Outpatient (Routine) - Closed Specialty Diagnoses / Procedures Referred By Robi hong Referred To Contact Diagnoses Follow Up Examination Status Post Surgery Peripheral Arterial Disease (HCC) Procedures US Aorta Iliac Arteries Bilateral with Doppler Jayjay Pak P.A.-C. [address] [place] [phone] [facility] Referral ID Status Reason Start Date Expiration Date Visits Re quested Visits Authorized [id number] Closed 02/23/2022 02/23/2023 1 1 Encounter Details Date Type Department Care Team (Latest Contact Info) Description 03/03/2023 8:00 AM CDT Hospital Encounter Department of Radiology, [facility], in [place], [place] [address] [place] [address] Jayjay Pak P.A.-C. 200 [place] [address] Follow Up Examination Status Post Surgery; Peripheral [...] How often do you attend shinto or congregation serv ices? Never 03/24/2021 Do [...] Answer Date Recorded PHQ-2 Score 0 10/20/2018 [facility] of Occupat ional Health - Occupational [...] your living situation today? I have a [facility] place to live 10/26/2022 Education Answer Date Recorded What is the highest level of school you have completed or the highest degree you have received? 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/2021 8:13 PM WANT AD RECEIVER Gender Identity Male 08/31/2019 2:40 PM CDT [...] TAKE ONE CAPSULE BY MOUTH EVERY DAY AXLE INSPECTOR 0 01/14/2022 nortriptyline (PAMELOR) 50 mg capsule [...] on the right. 2. 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 [...] demonstrated are elevated Doppler velocities in the [place] external iliac artery (273 cm/s today, previously [...] stenoses on theright. 2. 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 Jayjay [...] Council Relationship Specialty Start Date End Date Elsewhere, Pcp PCP - General Family Medicine 01/29/20 documented as of this encounter
--- OUTSIDE RECORDS SUMMARY | 2023-07-05 10:37 | XMS_ITS | Encounter Summary ---
Author Name Unknown Organization [facility] Address [address] [place] [address] Care Team Providers Care Ceiling Installer Name Role Phone Elsewhere, Pcp Primary Care Provider Unavailabl e Encounter Details Date Type Department Care Team (Late st Contact Info) Description 02/16/2023 10:36 AM CDT - 02/16/2023 12:35 PM CDT Surgery [facility] [address] [place] [address] Tee Celeste M.D., Ph.D. [address] [place] [phone] INSERTION Peritoneal DIALYSIS CATHETER Social History Tobacco [...] How often do you attend scientologist or moravian serv ices? 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 Gender Identity Male 08/31/2019 2:40 PM CDT [...] TAKE ONE CAPSULE BY MOUTH EVERY DAY CARTON LETTERING MACHINE OPERATOR 0 01/14/2022 nortriptyline (PAMELOR) 50 [...] Filtration Rate Less Than 15 (HCC) A rehab assistant actively participated and was necessary for [...] Unknown Provider LAB POCT ORDERABLES- MANUAL POC [facility] [address] [place] [address], [facility] PCDE [facility] POC 200 [place] [address] * (ABNORMAL) Glucose, POCT (02/16/2023 3:15 PM CDT) Glucose, POCT, B 191(H) 70 - 140 mg/dL 02/16/2023 3:17 PM CDT PCDE Site Capillary 02/16/2023 3:17 PM CDT PCDE Blood 02/16/2023 3:15 PM CDT 02/16/2023 3:17 PM CDT Unknown Provider LAB POCT ORDERABLES- MANUAL Performing Organization Address City/[facility]/ZIP Co de Phone Number POC [facility] [address] [place] [address], [facility] PCDE [facility] POC [address] [place] [address] * DX Abdomen Portable Anterior Posterior 1 [...] LAB POCT ORDERABLES- MANUAL Performing Organization Address City/[facility]/ZIP Co de Phone Number POC [facility] [address] PCDE [facility] POC [address] [place] [address] * (ABNORMAL) Phosphorus Inorganic (02/16/2023 1:04 PM CDT) [facility] Phosphorus (Inorganic), S 6.2(H) 2.5 - 4.5 mg/dL 02/16/2023 1:58 PM CDT DTL Blood (Blood, Venous) 02/16/2023 1:04 PM CDT 02/16/2023 1:41 PM CDT rUiel Lin M.D. LAB BLOOD ADD-ON Performing Organization Address City/[facility]/ZIP Co de Phone Number [facility] [address] [place] [address], [facility] [address] [place] [address] * (ABNORMAL) CBC without Differential (02/16/2023 1:04 PM CDT) Pathologist [facility] Hemoglobin 8.7(L) 13.2 - 16.6 g/dL 02/16/2023 [...] CDT Uriel Lin M.D. LAB BLOOD ADD-ON [facility] - [address] [address], [facility] METH [facility] [place] [address] * (ABNORMAL) Basic Metabolic Panel (02/16/2023 1:04 [...] M.D. LAB BLOOD ADD-ON Performing Organization Address City/[facility]/ZIP Co de Phone Number [facility] [address] [place] [address], [facility] METH [facility] [address] [place] [address] * Glucose, POCT (02/16/2023 12:04 PM CDT) Glucose, POCT, B 108 70 - 140 mg/dL 02/16/2023 12:07 PM CDT PCDE Site Capillary 02/16/2023 12:07 PM CDT PCDE Blood 02/16/2023 12:0 4 PM CDT 02/16/2023 12:07 PM CDT Unknown Provider LAB POCT ORDERABLES- MANUAL POC [facility] [address] [place] [address], [facility] PCDE [facility] P[facility] [address] [place] [address] * Glucose, POCT (02/16/2023 10:23 AM CDT) Glucose, POCT, B 112 70 - 140 mg/dL 02/16/2023 10:33 AM CDT PCDE Site Capillary 02/16/2023 10:33 AM CDT PCDE Blood 02/16/2023 10:2 3 AM CDT 02/16/2023 10:33 AM CDT Unknown Provider LAB POCT ORDERABLES- MANUAL POC [facility] [address] [place] [address], [facility] PCDE [facility] P[facility] [address] [place] [address] * Glucose, POCT (02/16/2023 8:23 AM CDT) Glucose, POCT, B 106 70 - 140 mg/dL 02/16/2023 8:24 AM CDT PCDE Blood 02/16/2023 8:23 AM CDT 02/16/2023 8:25 AM CDT Unknown Provider LAB POCT ORDERABLES- MANUAL Performing Organization Address City/[facility] de Phone Number POC [facility] [address] [place] [address], [facility] PCDE [facility] P[facility] [address] [place] [address] documented in this encounter Visit Diagnoses Diagnosis [...] surgical 1114 (Given - Provid er: Glenn D Cornell, DISTRIBUTION SYSTEMS SERVICEPERSON, GASTROINTESTINAL TECHNICIAN) insulin aspart U-100 injection 2 Units [...] documented as of this encounter Care Teams Ceiling Installer Relationship Specialty Start Date End Date Elsewhere, Pcp PCP - General Family Medicine 01/29/20 documented as of this encounter
--- OUTSIDE RECORDS SUMMARY | 2023-07-05 10:37 | XMS_ITS | Encounter Summary ---
Author Name Unknown Organization [facility] Address [address] [place] [address] Care Team Providers Care Ripsaw Operator Name Role Phone Elsewhere, Pcp Primary Care Provider Unavailabl e Encounter Details Date Type Department Care Team (Late st Contact Info) Description 02/16/2023 Orders Only Division of Endocrinology in [place], [place] [address] [place] [phone] Martina Da Silva, JULIÁN, C.N.P. [address] [place] [address] Social History Tobacco Use Types Packs/Day Years [...] How often do you attend pentecostal or orthodoxy serv ices? 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
--- OUTSIDE RECORDS SUMMARY | 2023-07-05 10:37 | XMS_ITS | Encounter Summary ---
Author Name Unknown Organization [facility] Address [address] [place] [address] Care Team Providers Care Meter Tester Polyphase Name Role Phone Elsewhere, Pcp Primary Care Provider Unavailabl e Encounter Details Date Type Department Care Team (Latest Contact Info) Description 02/14/2023 10:18 AM CDT - 02/14/2023 11:59 PM CDT Hospital Encounter Department of Laboratory Medicine in [place], [place] [address] [place] [address] Haseeb Menon Jr., D.O. [address] [place] [phone] Diabetes Mellitus Type 2 With Other Circulatory [...] How often do you attend orthodoxy or adventist serv ices? Never 03/24/2021 Do [...] Answer Date Recorded PHQ-2 Score 0 10/20/2018 [facility] of Occupat ional Health - Occupational Stress [...] your living situation today? [facility] 10/26/2022 Education Answer Date Recorded What is the highest level of school you have completed or the highest degree you have received? 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 Higher concentrations of biotin may be found in multivitamins, hair/nail supplements, and workout supplements. If the result does not match clinical observations, repeat testing after patient refrains from the use of supplements for at least 12 hours. Blood (Blood, Venous) 02/14/2023 11:09 AM CDT 02/14/2023 3:29 PM CDT [facility] LAB - 02/14/2023 3:29 PM CDT Specimen Information: Specimen ID: [id number] Specimen Type: Blood Specimen Collection Start Date: 02/14/2023 11:09 AM Specimen Received Date: 02/14/2023 ??3:29 PM Specimen ID: [id number] Specimen Type: Blood Specimen Collection Start Date: 02/14/2023 11:09 AM Specimen Received Date: 02/14/2023 ??2:48 PM Haseeb Menon Jr., D.O. LAB MICROBIO LOGY - BLOOD ORDERABLES [facility] [address] [place] [address], [place] [facility] [facility] in [place] [address] [place] [address] * HBc Total Ab, Serum (02/14/2023 11:09 AM CDT) Pathologist [facility] HBc Total Ab, S Negative Negative 02/15/2023 9:08 AM CDT [facility] Blood (Blood, Venous) 02/14/2023 11:09 AM CDT 02/15/2023 6:57 AM CDT Haseeb Menon Jr., D.O. LAB MICROBIO LOGY - BLOOD ORDERABLES Performing Organization Address City/[facility] Co de Phone Number [facility] [address] [place] [address] [facility] [address] [place] [address] * HBs Antibody, Serum (02/14/2023 11:09 AM CDT) Pathologist [facility] HBs Antibody, S Negative 4:34 PM CDT [...] [facility]/ZIP Co de Phone Number [facility] [address] [place] [address], [facility] [address] [place] [address] * Hepatitis B Surface Antigen (02/14/2023 11:09 AM CDT) [facility] HBs Antigen, S Nonreactive Nonreactive 02/14/2023 4:34 PM CDT [facility] Blood (Blood, Venous) 02/14/2023 11:09 AM CDT 02/14/2023 3:28 PM CDT Haseeb Menon Jr., D.O. LAB MICROBIO LOGY - BLOOD ORDERABLES [facility] [address] [place] [address], [facility] - [address] [address] * QuantiFERON-Tb Gold Plus, Blood (02/14/2023 11:09 AM CDT) [facility] QuantiFERON-TB Gold Plus Result Negative Negative [...] Diagnosis of Tuberculosis in Adults and Children [Tjn DM et. al. Clin. Infect. Dis. 2017;64(2):111-115]. [...] AM CDT 02/16/2023 11:08 AM CDT Narrative [facility] - 02/17/2023 12:53 PM CDT Specimen Information: Specimen ID: [id number] Specimen Type: Blood Specimen Collection Start Date: 02/14/2023 11:09 AM Specimen Received Date: 02/16/2023 11:08 AM Specimen ID: [id number] Specimen Type: Blood Specimen Collection Start Date: 02/14/2023 11:09 AM Specimen Received Date: 02/16/2023 11:08 AM Specimen ID: [id number] Specimen Type: Blood Specimen Collection Start Date: 02/14/2023 11:09 AM Specimen Received Date: 02/16/2023 11:08 AM Specimen ID: [id number] Specimen Type: Blood Specimen Collection Start Date: 02/14/2023 11:09 AM Specimen Received Date: 02/16/2023 11:08 AM Haseeb Menon Jr. DFeiO. LAB MICROBIO LOGY - BLOOD ORDERABLES [facility] [address] [place], [place] [id number], [facility] [place] [address] documented in this encounter Visit Diagnoses Diagnosis Diabetes Mellitus Type 2 With Other Circulatory Complication Hyperglycemic (HCC) Hypertension And Chronic Kidney Disease Stage 4 (HCC) documented in this encounter Additional Health Concerns Assessment Noted Time PHQ-9 Depression Total Score: 3 01/04/20 18 10:38 AM CDT documented as of this encounter Care Teams Meter Tester Polyphase Relationship Specialty Start Date End Date Elsewhere, Pcp PCP - General Family Medicine 01/29/20 documented as of this encounter
--- OUTSIDE RECORDS SUMMARY | 2023-07-05 10:38 | XMS_ITS | Encounter Summary ---
Author Name Unknown Organization [facility] Address [address] [place] [address] Care Team Providers Care System Developer Associate Manager Name Role Phone Elsewhere, Pcp Primary Care Provider Unavailabl e Encounter Details Date Type Department Care Team (Late st Contact Info) Description 02/08/2023 Documentation Division of Nephrology and Hypertension in [place], [place] [address] [place] [address] Haseeb Menon Jr., D.O. [address] [place] [address] Social History Tobacco Use Types Packs/Day Years [...] How often do you attend yarsani or gnosticism serv ices? 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
--- OUTSIDE RECORDS SUMMARY | 2023-07-05 10:38 | XMS_ITS | Encounter Summary ---
Author Name Unknown Organization [facility] Address [address] [place] [address] Care Team Providers Care Corporate Licensed Broker Name Role Phone Elsewhere, Pcp Primary Care Provider Unavailabl e Encounter Details Date Type Department Care Team (Latest Contact Info) Description 01/11/2023 8:19 AM CDT - 01/11/2023 11:59 PM CDT Hospital Encounter Department of Laboratory Medicine in [place], [place] [address] [place] [address] Haseeb Menon Jr., D.O. [address] [place] [phone] Hypertension And Chronic Kidney Disease Stage 4 (HCC); Diabetes Mellitus Type 2 With Diabetic Nephropathy (HCC); Hyperparathyroidism Secondary (HCC); Anemia Of Chronic Renal Disease; Acidosis Metabolic Hyperchloremic; Atherosclerosis Of [place] Arteries Of [...] How often do you attend jain or advent serv ices? Never 03/24/2021 Do [...] Answer Date Recorded PHQ-2 Score 0 10/20/2018 [facility] [place] of Occupat ional Health - Occupational Stress [...] your living situation today? I have a [facility] place to live 10/26/2022 Education Answer Date Recorded What is the highest level of school you have completed or the highest degree you have received? 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/2021 8:13 PM DEPOSIT REFUND CLERK Gender Identity Male 08/31/2019 2:40 PM [...] by mouth daily. 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 LAB BLOOD AD D-ON [facility] [address] [place] [address], [facility] [place] [address] [place] [address] [facility] in [place] [address] [place] [address] * (ABNORMAL) CBC with Differential, Blood (01/11/2023 8:30 AM CDT) Pathologist [facility] Hemoglobin 8.6(L) 13.2 - 16.6 g/dL 01/11/2023 [...] LAB BLOOD AD D-ON Performing Organization Address City/State/[facility] Co de Phone Number [facility] [address] [place] [address], [facility] [address] [place] [address] documented in this encounter Visit Diagnoses Diagnosis Hypertension And Chronic Kidney Disease Stage 4 (HCC) 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
--- OUTSIDE RECORDS SUMMARY | 2023-07-05 10:38 | XMS_ITS | Encounter Summary ---
Author Name Unknown Organization [facility] Address [address] [place] [address] Care Team Providers Care Boring Machine Operator Helper Name Role Phone Elsewhere, Pcp Primary Care Provider Unavailabl e Reason for Visit * Reason Comments Med Refill Encounter Details Date Type Department Care Team (Late st Contact Info) Description 01/30/2023 Refill Division of Nephrology and Hypertension in [place], [place] [address] [place] [address] Farrah Barnes M.D., Ph.D. [address] [place] [address] Med Refill Social History Tobacco Use Types [...] How often do you attend restorationist or sikh serv ices? 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
--- OUTSIDE RECORDS SUMMARY | 2023-07-05 10:38 | XMS_ITS | Encounter Summary ---
Author Name Unknown Organization [facility] Address [address] [place] [address] Care Team Providers Care Dry Wall Installer Name Role Phone Elsewhere, Pcp Primary Care Provider Unavailabl e Reason for Visit * Appointment Request (Routine) - Closed Specialty Diagnoses / Procedures Referred By Robi t Referred To Contact Nephrology and Hypertension Referral ID Status Reason Start Date Expiration Date Visits Re quested Visits Authorized [id number] Closed 10/28/2022 10/28/2023 1 1 Encounter Details Date Type Department Care Team (Latest Contact Info) Description 11/23/2022 2:30 PM CDT External Outreach Division of Nephrology and Hypertension in [place], [place] [address] [place] [address] Haseeb Menon Jr., D.O. [address] [place] [address] Hypertension And Chronic Kidney Disease Stage 4 (HCC) (Primary Dx); Diabetes Mellitus Type 2 With Diabetic Nephropathy (HCC); Hyperparathyroidism Secondary (HCC); Anemia Of Chronic Renal Disease; Acidosis Metabolic Hyperchloremic; Atherosclerosis Of [place] Arteries Of Extremities With Intermittent Claudication Right [...] How often do you attend buddhism or catholic serv ices? Never 03/24/2021 Do [...] PHQ-2 Score 0 10/20/2018 [facility] of Occupat ional Health - Occupational [...] your living situation today? I have a [facility] place to live 10/26/2022 Education Answer Date Recorded What is the highest level of school you have completed or the highest degree you have received? 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/2021 8:13 PM NAPPER GRINDER Gender Identity Male 08/31/2019 2:40 PM [...] Provider: ELSEWHERE, PCP SUBJECTIVE REASON FOR VISIT [place] [facility] Follow-up regards advanced [...] on the 14 of November here in [place]. His hemoglobin at that time was 8.6, improved from 7.7 the month prior. His most recent set of iron levels on the 15 of October are acceptable. He would like to have his labs done in [place] we will make sure this is ordered. [...] TAKE ONE CAPSULE BY MOUTH EVERY DAY COMPUTER NETWORKING INSTRUCTOR ADJUNCT, Disp: , Rfl: nortriptyline (PAMELOR) 50 mg [...] will get a set of chemistries in [place]. Going forward: 1. Continue GOLD regimen as [...] on sodium bicarb supplements #6 Atherosclerosis Of [place] Arteries Of Extremities With Intermittent Claudication Right [...] 8:30 AM CDT 01/11/2023 11:00 AM CDT [facility] - 01/11/2023 3:02 PM CDT Specimen Information: Specimen ID: [id number] Specimen Type: Blood Specimen Collection Start Date: 01/11/2023 ??8:30 AM Specimen Received Date: 01/11/2023 11:00 AM Specimen ID: [id number] Specimen Type: Blood Specimen Collection Start Date: 01/11/2023 ??8:30 AM Specimen Received Date: 01/11/2023 ??2:35 PM Haseeb Menon Jr., D.O. LAB BLOOD AD D-ON [facility] [address] [place] [address], [employer] in [place] [address] [place] [address] [facility] [address] [place] [address] * (ABNORMAL) CBC with Differential, Blood (01/11/2023 [...] BLOOD AD D-ON Performing Organization Address City/[facility]/ZIP Co de Phone Number [facility] [address] [place] [address], [facility] [address] [facility] [place] [address] [place] [address] * (ABNORMAL) Hemoglobin A1c (11/25/2022 2:09 PM [...] Menon Jr., D.O. LAB BLOOD AD D-ON [facility] [address] [place] [address], [place] [facility] [facility] in [place] [address] [place] [address] * (ABNORMAL) Renal Function Panel (11/25/2022 2:09 PM CDT) [facility] Potassium, P 4.1 3.6 - 5.2 [...] PM CDT 11/25/2022 3:35 PM CDT Narrative [facility] - 11/25/2022 7:56 PM CDT Specimen Information: Specimen ID: [id number] Specimen Type: Blood Specimen Collection Start Date: 11/25/2022 ??2:09 PM Specimen Received Date: 11/25/2022 ??3:35 PM Specimen ID: [id number] Specimen Type: Blood Specimen Collection Start Date: 11/25/2022 ??2:09 PM Specimen Received Date: 11/25/2022 ??7:10 PM Haseeb Menon Jr., D.O. LAB BLOOD AD D-ON Performing Organization Address City/[facility] Co de Phone Number [facility] [address] [place] [address], [facility] OWAT [facility] [address] [place] [address] [facility] [address] [place] [address] * (ABNORMAL) Iron and Total Iron-Binding Capacity [...] LAB BLOOD AD D-ON Performing Organization Address [facility] Co de Phone Number [facility] [address] [place] [address], [facility] in [place] [address] [place] [address] * Ferritin (11/25/2022 2:09 PM CDT) Ferritin, S 374 31 - 409 mcg/L 11/25/2022 5:12 PM CDT OW Comment: Biotin has been identified by the software build engineer as a potential interfering substance. Higher concentrations of biotin may be found in multivitamins, hair/nail supplements, and workout supplements. If the result does not match clinical observations, repeat testing after patient refrains from the use of supplements for at least 12 hours. Blood (Blood, Venous) 11/25/2022 2:09 PM CDT 11/25/2022 3:35 PM CDT Haseeb Menon Jr., D.O. LAB BLOOD AD D-ON [facility] [address] [place] [address], [facility] OWAT [facility] [place] [address] [place] [address] * (ABNORMAL) CBC with Differential, Blood (11/25/2022 [...] Menon Jr., D.O. 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) Hypertension And Chronic Kidney Disease Stage 4 (HCC) 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) Anemia Of Chronic Renal Disease Acidosis Metabolic Hyperchloremic 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) Hypertension And Chronic Kidney Disease Stage 4 (HCC) 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
--- OUTSIDE RECORDS SUMMARY | 2023-07-05 10:38 | XMS_ITS | Encounter Summary ---
Author Name Unknown Organization [facility] Address [address] [place] [address] Care Team Providers Care Die Developer Name Role Phone Elsewhere, Pcp Primary Care Provider Unavailabl e Encounter Details Date Type Department Care Team (Latest Contact Info) Description 11/25/2022 1:41 PM CDT - 11/25/2022 11:59 PM CDT Hospital Encounter Department of Laboratory Medicine in [place], [place] [address] [place] [phone] Haseeb Menon Jr., D.O. 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) IRON AND TOT IRON-BINDING CAPACITY, S/P Routine 11/25/2022 2:09 PM CDT Hypertension And Chronic Kidney Disease Stage 4 (HCC) 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) Anemia Of Chronic Renal Disease Acidosis Metabolic Hyperchloremic 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) CBC WITH DIFFERENTIAL, B Routine 11/25/2022 2:09 PM CDT Hypertension And Chronic Kidney Disease Stage 4 (HCC) 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) Anemia Of Chronic Renal Disease Acidosis Metabolic Hyperchloremic 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) HEMOGLOBIN A1C, B Routine 11/25/2022 2:0 9 PM CDT Hypertension And Chronic Kidney Disease Stage 4 (HCC) 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 LAB BLOOD AD D-ON [facility] [address] [place] [address], [facility] OWAT [facility] [place] [address] [place] [address] * (ABNORMAL) Renal Function Panel (11/25/2022 2:09 [...] PM CDT 11/25/2022 3:35 PM CDT Narrative [facility] - 11/25/2022 7:56 PM CDT Specimen Information: Specimen ID: [id number] Specimen Type: Blood Specimen Collection Start Date: 11/25/2022 ??2:09 PM Specimen Received Date: 11/25/2022 ??3:35 PM Specimen ID: [id number] Specimen Type: Blood Specimen Collection Start Date: 11/25/2022 ??2:09 PM Specimen Received Date: 11/25/2022 ??7:10 PM Haseeb Menon Jr., D.O. LAB BLOOD AD D-ON Performing Organization Address City/[facility] Co de Phone Number [facility] [address] [place] [address], [facility] OWAT [facility] [address] [place] [address] [facility] [address] [place] [address] * (ABNORMAL) Iron and Total Iron-Binding Capacity [...] LAB BLOOD AD D-ON Performing Organization Address [facility] Co de Phone Number [facility] [address] [place] [address], [facility] in [address] [address] * Ferritin (11/25/2022 2:09 PM CDT) Ferritin, S 374 31 - 409 mcg/L 11/25/2022 5:12 PM CDT OW Comment: Biotin has been identified by the marble worker as a potential interfering substance. Higher concentrations of biotin may be found in multivitamins, hair/nail supplements, and workout supplements. If the result does not match clinical observations, repeat testing after patient refrains from the use of supplements for at least 12 hours. Blood (Blood, Venous) 11/25/2022 2:09 PM CDT 11/25/2022 3:35 PM CDT Haseeb Menon Jr., D.O. LAB BLOOD AD D-ON [facility] [address] [place] [address], [facility] OWAT [facility] [place] [address] [place] [address] * (ABNORMAL) CBC with Differential, Blood (11/25/2022 [...] 11/25/2022 2:09 PM CDT Haseeb Menon Jr., DFeiOFei LAB BLOOD AD D-ON [facility] [address] [place] [address], 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
--- OUTSIDE RECORDS SUMMARY | 2023-07-05 10:38 | XMS_ITS | Encounter Summary ---
Author Name Unknown Organization [facility] Address [address] [place] [address] Care Team Providers Care Clinical Documentation Consultant Name Role Phone Elsewhere, Pcp Primary [...] 2 Views Haseeb Menon Jr., D.O. 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 [address] [place] [address] [facility] Region Referral ID Status Reason Start Date Expiration Date V isits Requested Visits Authorized [id number] Authorized 01/18/2023 01/18/2024 1 1 Reason for Visit * Appointment Request (Routine) - Closed Specialty Diagnoses / Procedures Referred By Robi hong Referred To Contact Nephrology and Hypertension Referral ID Status Reason Start Date Expiration Date Visits Re quested Visits Authorized [id number] Closed 01/06/2023 01/06/2024 1 1 Encounter Details Date Type Department Care Team (Latest Contact Info) Description 01/18/2023 10:00 AM CDT External Outreach Division of Nephrology and Hypertension in [place], [place] [address] [place] [address] Haseeb Menon Jr., D.O. [address] [place] [address] Hypertension And Chronic Kidney Disease Stage 4 [...] How often do you attend uatsdin or restorationist serv ices? Never 03/24/2021 Do [...] Date Recorded PHQ-2 Score 0 10/20/2018 [facility] [place] of Occupat ional Health - Occupational Stress [...] your living situation today? [facility] 10/26/2022 Education Answer Date Recorded What is the highest level of school you have completed or the highest degree you have received? 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 When he appeared for [...] TAKE ONE CAPSULE BY MOUTH EVERY DAY SNF, Disp: , Rfl: nortriptyline (PAMELOR) 50 mg [...] and CONNER approach 7. Coordinate care with [facility] dialysis team-e-mail sent #2 Diabetes Mellitus [...] Blood (02/17/2023 9:35 AM CDT) [facility] QuantiFERON-TB Gold Plus Result Negative Negative 02/21/2023 [...] AM CDT 02/19/2023 4:15 PM CDT Narrative [facility] - 02/21/2023 12:00 PM CDT Specimen Information: Specimen ID: [id number] Specimen Type: Blood Specimen Collection Start Date: 02/17/2023 ??9:35 AM Specimen Received Date: 02/19/2023 ??4:15 PM Specimen ID: [id number] Specimen Type: Blood Specimen Collection Start Date: 02/17/2023 ??9:35 AM Specimen Received Date: 02/19/2023 ??4:15 PM Specimen ID: [id number] Specimen Type: Blood Specimen Collection Start Date: 02/17/2023 ??9:35 AM Specimen Received Date: 02/19/2023 ??4:15 PM Specimen ID: [id number] Specimen Type: Blood Specimen Collection Start Date: 02/17/2023 ??9:35 AM Specimen Received Date: 02/19/2023 ??4:16 PM Haseeb Menon Jr., D.O. LAB MICROBIO LOGY - BLOOD ORDERABLES [facility] [address] [place] [address], [facility] [place] [address] * HBs Antibody, Serum (02/17/2023 9:35 AM CDT) [facility] HBs Antibody, S Negative 5:03 PM CDT AUST Comment: ----REFERENCE VALUE---- Unvaccinated: Negative Vaccinated: Positive HBs Antibody, Quantitative, S <3.50 mIU/mL 02/17/2023 5:03 PM CDT AUST Comment: ----REFERENCE VALUE---- <8.50: Negative 8.50-11.49: Indeterminate >=11.50: Positive Blood (Blood, Venous) 02/17/2023 9:35 AM CDT 02/17/2023 3:36 PM CDT Haseeb Menon Jr., D.O. LAB MICROBIO LOGY - BLOOD ORDERABLES Performing Organization Address [facility] Co de Phone Number [id number] [place] [address] - [address] [address] * Hepatitis B Surface Antigen (02/17/2023 9:35 AM CDT) HBs Antigen, S Nonreactive Nonreactive 02/17/2023 5:03 PM CDT AUS Blood (Blood, Venous) 02/17/2023 9:35 AM CDT 02/17/2023 3:36 PM CDT Haseeb Menon Jr., D.O. LAB MICROBIO LOGY - BLOOD ORDERABLES Performing Organization Address [facility] Co de Phone Number [facility] [address] [place] [address], [address] [address] * HBc Total Ab, Serum (02/17/2023 9:35 AM CDT) HBc Total Ab, S Negative Negative 02/19/2023 10:09 AM CDT [facility] Blood (Blood, Venous) 02/17/2023 9:35 AM CDT 02/19/2023 8:50 AM CDT Haseeb Menon Jr., D.O. LAB MICROBIO LOGY - BLOOD ORDERABLES Performing Organization Address City/[facility]/ZIP Co de Phone Number [facility] [address] [address] [facility] [address] [address] * HCV Ab Scrn w/Reflex to HCV PCR, Serum (02/17/2023 9:35 AM CDT) HCV Ab Screen, S Negative Negative 02/18/20 3:35 PM CDT MKTO Comment: Biotin has been identified by the black leather trimmer as a potential interfering substance. Higher concentrations of biotin may be found in multivitamins, hair/nail supplements, and workout supplements. If the result does not match clinical observations, repeat testing after patient refrains from the use of supplements for at least 12 hours. Blood (Blood, Venous) 02/17/2023 9:35 AM CDT 02/17/2023 2:20 PM CDT Narrative [facility] - 02/17/2023 3:35 PM CDT Specimen Information: Specimen ID: [id number] Specimen Type: Blood Specimen Collection Start Date: 02/17/2023 ??9:35 AM Specimen Received Date: 02/17/2023 ??2:20 PM Specimen ID: [id number] Specimen Type: Blood Specimen Collection Start Date: 02/17/2023 ??9:35 AM Specimen Received Date: 02/17/2023 ??2:16 PM Haseeb Menon Jr., D.O. LAB MICROBIO LOGY - BLOOD ORDERABLES [facility] [address] [place] [address], [place] [address] * (ABNORMAL) Renal Function Panel (02/17/2023 9:35 [...] AM CDT 02/17/2023 11:01 AM CDT Narrative [facility] - 02/17/2023 4:02 PM CDT Specimen Information: Specimen ID: [id number] Specimen Type: Blood Specimen Collection Start Date: 02/17/2023 ??9:35 AM Specimen Received Date: 02/17/2023 11:01 AM Specimen ID: [id number] Specimen Type: Blood Specimen Collection Start Date: 02/17/2023 ??9:35 AM Specimen Received Date: 02/17/2023 ??3:35 PM Haseeb Menon Jr., D.O. LAB BLOOD AD D-ON [facility] [address] [place] [address], [facility] OWAT [facility] [place] [address] [place] [address] AUST [facility] [address] [place] [address] * (ABNORMAL) Iron and Total Iron-Binding Capacity [...] City/[facility]/ZIP Co de Phone Number [facility] [address] [place] [address], [facility] AUS [facility] - [facility] [address] [place] [address] * Ferritin (02/17/2023 9:35 AM CDT) Ferritin, S 385 31 - 409 mcg/L 02/17/2023 1:16 PM CDT OWAT Comment: Biotin has been identified by the black leather trimmer as a potential interfering substance. Higher concentrations of biotin may be found in multivitamins, hair/nail supplements, and workout supplements. If the result does not match clinical observations, repeat testing after patient refrains from the use of supplements for at least 12 hours. Blood (Blood, Venous) 02/17/2023 9:35 AM CDT 02/17/2023 11:01 AM CDT Haseeb Menon Jr., D.O. LAB BLOOD AD D-ON [facility] [address] [place] [address], [place] OWAT [facility] [place] [address] [place] [address] * (ABNORMAL) CBC with Differential, Blood (02/17/2023 9:35 AM CDT) Pathologist [facility] Hemoglobin 8.5(L) 13.2 - 16.6 g/dL 02/17/2023 [...] Menon Jr. DFeiO. LAB BLOOD AD D-ON [facility] [address] [place] [address], [facility] FB60 [facility] [place] [address] [place] [address] * (ABNORMAL) Albumin, Random, Urine (02/17/2023 9:26 AM CDT) Microalbumin 895.0 mg/L 02/17/2023 1:53 PM CDT OWAT Creatinine 42 mg/dL 02/17/2023 12:50 PM CDT OWAT Albumin/Creatinin e Ratio 2131(H) <17 mg/g 02/17/2023 1:53 PM CDT OWAT Urine (Urine, Voided) 02/17/2023 9:26 AM CDT 02/17/2023 11:00 AM CDT Haseeb Menon Jr., D.O. LAB URINE OR DERABLES [facility] [address] [place] [address], [place] OW[place] [facility] [place] [address] [place] [address] * (ABNORMAL) Urinalysis with Microscopic: Urine, Voided [...] 8.0 02/17/2023 10:03 AM CDT FB60 Specific [place] 1.015 1.001 - 1.035 02/17/2023 10:03 AM [...] LAB URINE OR DERABLES Performing Organization Address City/State/[facility] Co de Phone Number [facility] [address] [place] [address], [facility] FB60 [facility] [place] [address] [place] [address] documented in this encounter Visit Diagnoses Diagnosis [...] as of this encounter Care Teams Clinical Documentation Consultant Relationship Specialty Start Date End Date Elsewhere, Pcp PCP - General Family Medicine 01/29/20 documented as of this encounter
--- OUTSIDE RECORDS SUMMARY | 2023-07-05 10:38 | XMS_ITS | Encounter Summary ---
Author Name Unknown Organization [facility] Address [address] [place] [address] Care Team Providers Care Headlight Adjuster Name Role Phone Elsewhere, Pcp Primary Care Provider Unavailabl e Encounter Details Date Type Department Care Team (Late st Contact Info) Description 02/08/2023 Orders Only Division of Nephrology and Hypertension in [place], [place] [address] [place] [address] Haseeb Menon Jr., D.O. [address] [place] [address] Diabetes Mellitus Type 2 With Other Circulatory [...] How often do you attend congregational or episcopalian serv ices? 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 Higher concentrations of biotin may be found in multivitamins, hair/nail supplements, and workout supplements. If the result does not match clinical observations, repeat testing after patient refrains from the use of supplements for at least 12 hours. Blood (Blood, Venous) 02/14/2023 11:09 AM CDT 02/14/2023 3:29 PM CDT Narrative [facility] - 02/14/2023 3:29 PM CDT Specimen Information: Specimen ID: [id number] Specimen Type: Blood Specimen Collection Start Date: 02/14/2023 11:09 AM Specimen Received Date: 02/14/2023 ??3:29 PM Specimen ID: [id number] Specimen Type: Blood Specimen Collection Start Date: 02/14/2023 11:09 AM Specimen Received Date: 02/14/2023 ??2:48 PM Haseeb Menon Jr., D.O. LAB MICROBIO LOGY - BLOOD ORDERABLES Performing Organization Address City/[facility]/[place] [address], [facility] [place] [address] [place] [address] * HBc Total Ab, Serum (02/14/2023 11:09 AM CDT) Pathologist [facility] HBc Total Ab, S Negative Negative 02/15/2023 9:08 AM CDT [facility] Blood (Blood, Venous) 02/14/2023 11:09 AM CDT 02/15/2023 6:57 AM CDT Haseeb Menon Jr., D.O. LAB MICROBIO LOGY - BLOOD ORDERABLES [facility] [address] [place] [address] [facility] [address] [place] [address] * HBs Antibody, Serum (02/14/2023 11:09 AM CDT) Pathologist [facility] HBs Antibody, S Negative 4:34 PM CDT AUST Comment: ----REFERENCE VALUE---- Unvaccinated: Negative Vaccinated: Positive HBs Antibody, Quantitative, S <3.50 mIU/mL 02/14/2023 4:34 PM CDT AUST Comment: ----REFERENCE VALUE---- <8.50: Negative 8.50-11.49: Indeterminate >=11.50: Positive Blood (Blood, Venous) 02/14/2023 11:09 AM CDT 02/14/2023 3:28 PM CDT Haseeb Menon Jr., D.O. LAB MICROBIO LOGY - BLOOD ORDERABLES Performing Organization Address [facility]/ZIP Co de Phone Number [facility] [address] [place] [address], [facility] [place] [address] * Hepatitis B Surface Antigen (02/14/2023 11:09 AM CDT) Pathologist [facility] HBs Antigen, S Nonreactive Nonreactive 02/14/2023 4:34 PM CDT [facility] Blood (Blood, Venous) 02/14/2023 11:09 AM CDT 02/14/2023 3:28 PM CDT Haseeb Menon Jr., D.O. LAB MICROBIO LOGY - BLOOD ORDERABLES Performing Organization Address [facility] Co de Phone Number [facility] [address] [place] [address], [facility] [place] [address] * QuantiFERON-Tb Gold Plus, Blood (02/14/2023 11:09 AM CDT) Pathologist [facility] QuantiFERON-TB Gold Plus Result Negative Negative [...] 11:09 AM CDT 02/16/2023 11:[address] [facility] - 02/17/2023 12:53 PM CDT Specimen Information: Specimen ID: [id number] Specimen Type: Blood Specimen Collection Start Date: 02/14/2023 11:09 AM Specimen Received Date: 02/16/2023 11:08 AM Specimen ID: [id number] Specimen Type: Blood Specimen Collection Start Date: 02/14/2023 11:09 AM Specimen Received Date: 02/16/2023 11:08 AM Specimen ID: [id number] Specimen Type: Blood Specimen Collection Start Date: 02/14/2023 11:09 AM Specimen Received Date: 02/16/2023 11:08 AM Specimen ID: [id number] Specimen Type: Blood Specimen Collection Start Date: 02/14/2023 11:09 AM Specimen Received Date: 02/16/2023 11:08 AM Estiven He Jr.O. LAB MICROBIO LOGY - BLOOD ORDERABLES [facility] [address] [place] [address], [facility] [place] in [address] [address] documented in this encounter Visit Diagnoses Diagnosis [...] documented as of this encounter Care Teams Headlight Adjuster Relationship Specialty Start Date End Date Elsewhere, Pcp PCP - General Family Medicine 01/29/20 documented as of this encounter
--- OUTSIDE RECORDS SUMMARY | 2023-07-05 10:38 | XMS_ITS | Encounter Summary ---
Author Name Unknown Organization [facility] Address [address] [place] [address] Care Team Providers Care Manager Managing Name Role Phone Elsewhere, Pcp Primary Care [...] 2 Views Haseeb Menon Jr., D.O. 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 [address] [place] [address] Hypertension And Chronic Kidney Disease Stage 4 [...] How often do you attend congregation or jain serv ices? 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
--- OUTSIDE RECORDS SUMMARY | 2023-07-05 10:39 | XMS_ITS | Encounter Summary ---
Author Name Unknown Organization [facility] Address [address] [place] [address] Care Team Providers Care Personnel Research Psychologist Name Role Phone Elsewhere, Pcp Primary Care Provider Unavailabl e Encounter Details Date Type Department Care Team (Latest Contact Info) Description 09/06/2022 10:39 AM CDT - 09/06/2022 11:59 PM CDT Hospital Encounter Department of Laboratory Medicine in [place], [place] [address] [place] [address] Haseeb Menon Jr., D.O. [address] [place] [phone] Hypertension And Chronic Kidney Disease Stage 4 (HCC); Diabetes Mellitus Type 2 With Diabetic Nephropathy (HCC); Anemia Of Chronic Renal Disease; Hyperparathyroidism Secondary (HCC); Atherosclerosis Of [place] Arteries Of Left Leg [...] How often do you attend protestant or caodaism serv ices? 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 Gender Identity Male 08/31/2019 2:40 PM CDT [...] Renal Disease Hyperparathyroidism Secondary (HCC) Atherosclerosis Of [place] Arteries Of Left Leg With Ulceration Of Unspecified Site (HCC) Depression Major Recurrent Moderate (HCC) URINALYSIS WITH MICROSCOPIC Routine 09/06/2022 10:59 AM CDT Hypertension And Chronic Kidney Disease Stage 4 (HCC) Diabetes Mellitus Type 2 With Diabetic Nephropathy (HCC) Anemia Of Chronic Renal Disease Hyperparathyroidism Secondary (HCC) Atherosclerosis Of [place] Arteries Of Left [...] 8.0 09/06/2022 11:18 AM CDT FB60 Specific Raven 1.015 1.001 - 1.035 09/06/2022 11:18 AM [...] CDT 09/06/2022 11:15 AM CDT Haseeb Menon Jr., D.O. LAB URINE OR DERABLES [facility] [address] [place] [address], [facility] FB60 [facility] [place] [address] [place] [address] * (ABNORMAL) Albumin, Random, Urine (09/06/2022 10:59 AM CDT) Microalbumin 1149.0 mg/L 09/06/2022 4:37 PM CDT OWAT Creatinine 22 mg/dL 09/06/2022 2:31 PM CDT [facility] Albumin/Creatinin e Ratio 5223(H) <17 mg/g 09/06/2022 4:37 PM CDT [facility] Urine (Urine, Voided) 09/06/2022 10:59 AM CDT 09/06/2022 1:39 PM CDT Haseeb Menon Jr., D.O. LAB URINE OR DERABLES Performing Organization Address City/State/[facility] Co de Phone Number [facility] [address] [place] [address], [facility] OWAT 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
--- OUTSIDE RECORDS SUMMARY | 2023-07-05 10:39 | XMS_ITS | Encounter Summary ---
Author Name Unknown Organization [facility] Address [address] [place] [address] Care Team Providers Care Overhead Crane Truck Loader Name Role Phone Elsewhere, Pcp Primary Care [...] 2 Views Haseeb Menon Jr., D.O. 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 [address] [place] [address] [facility] Referral ID Status Reason Start Date Expiration Date Visits Re quested Visits Authorized [id number] Closed 09/14/2022 09/14/2023 1 1 Encounter Details Date Type Department Care Team (Late st Contact Info) Description 09/14/2022 Orders Only Division of Nephrology and Hypertension in [place], [place] [address] [place] [address] Haseeb Menon Jr., D.O. [address] [place] [address] Hypertension And Chronic Kidney Disease Stage 4 [...] Answer Date Recorded PHQ-2 Score 0 10/20/2018 [facility]at [facility] - Occupational [...] Assigned at Male 03/24/2021 8:13 PM LEATHER STITCHER Gender Identity Male 08/31/2019 2:40 PM CDT [...] CDT) Ventricular Rate ECG/Min 83 BPM MUSE NC Interval 162 ms MUSE QRSD Interval 134 ms MUSE QT Interval 426 ms MUSE QTC Interval 500 ms MUSE P Lyndon 67 degrees MUSE R Lyndon -15 degrees MUSE T Wave Lyndon 14 degrees MUSE 11/17/2022 12:1 1 PM [...] documented as of this encounter Care Teams Overhead Crane Truck Loader Relationship Specialty Start Date End Date Elsewhere, Pcp PCP - General Family Medicine 01/29/20 documented as of this encounter
--- OUTSIDE RECORDS SUMMARY | 2023-07-05 10:39 | XMS_ITS | Encounter Summary ---
Author Name Unknown Organization [facility] Address [address] [place] [address] Care Team Providers Care Unix Analyst Name Role Phone Elsewhere, Pcp Primary Care Provider Unavailabl e Encounter Details Date Type Department Care Team (Late st Contact Info) Description 10/28/2022 Orders Only Division of Nephrology and Hypertension in [place], [place] [address] [place] [address] Haseeb Menon Jr., D.O. [address] [place] [address] Hypertension And Chronic Kidney Disease Stage 4 [...] often do you attend roman catholic or baptist serv ices? Never 03/24/2021 Do [...] 10/20/2018 [facility]at [facility] - Occupational Stress Questionnaire Answer Date [...] your living situation today? I have a [facility] place to live 10/26/2022 Education Answer Date Recorded What is the highest level of school you have completed or the highest degree you have received? 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 ----REFERENCE VALUE---- Unvaccinated: Negative Vaccinated: Positive HBs Antibody, Quantitative, S <5.0 mIU/mL 11/17/2022 9:12 PM CDT [facility] Comment: ----REFERENCE VALUE---- Unvaccinated: <5.0 Vaccinated: >=12.0 Blood (Blood, Venous) 11/17/2022 11:05 AM CDT 11/17/2022 4:58 PM CDT Haseeb Menon Jr., D.O. LAB MICROBIO LOGY - BLOOD ORDERABLES [facility] [address] [place] [address] [facility] [address] [place] [address] * Hepatitis B Surface Antigen (11/17/2022 11:05 AM CDT) HBs Antigen, S Negative Negative 11/17/2022 8:51 PM CDT [facility] Blood (Blood, Venous) 11/17/2022 11:05 AM CDT 11/17/2022 2:53 PM CDT Haseeb eMnon Jr., D.O. LAB MICROBIO LOGY - BLOOD ORDERABLES Performing Organization Address City/[facility]/ZIP Co de Phone Number [facility] [address] [place] [address] [facility] [address] [place] [address] * HBc Total Ab, Serum (11/17/2022 11:05 AM CDT) HBc Total Ab, S Negative Negative 11/17/2022 9:12 PM CDT [facility] Blood (Blood, Venous) 11/17/2022 11:05 AM CDT 11/17/2022 4:58 PM CDT Haseeb Menon Jr., D.O. LAB MICROBIO LOGY - BLOOD ORDERABLES [facility] [address] [place] [address] [facility] [address] [place] [address] * HCV Ab Scrn w/Reflex to HCV PCR, Serum (11/17/2022 11:05 AM CDT) HCV Ab Screen, S Negative Negative 11/17/2022 9:09 PM CDT [facility] Comment:Wkttdq-cq-[id number] rat io is <1.00. Blood (Blood, Venous) 11/17/2022 11:05 AM CDT 11/17/2022 2:53 PM CDT Haseeb Menon Jr., D.O. LAB MICROBIO LOGY - BLOOD ORDERABLES [facility] [address] [place] [address] [facility] [address] [place] [address] * QuantiFERON-Tb Gold Plus, Blood (11/17/2022 11:04 AM CDT) [facility] QuantiFERON-TB Gold Plus Result Negative Negative 11/18/2022 10:55 AM CDT [facility] Comment: No interferon-gamma response [...] Result 0.01 IU/mL 11/18/2022 10:55 AM CDT [facility] TB2 Ag minus Nil Result 0.02 IU/mL 11/18/2022 10:55 AM CDT [facility] Mitogen minus Nil Result 9.94 IU/mL 11/18/2022 10:55 AM CDT [facility] Nil Result 0.06 IU/mL 11/18/2022 10:55 AM CDT [facility] Blood (Blood, Venous) 11/17/2022 11:04 AM CDT 11/17/2022 1:50 PM CDT Narrative [facility] - 11/18/2022 10:55 AM CDT Specimen Information: Specimen ID: [id number] Specimen Type: Blood Specimen Collection Start Date: 11/17/2022 11:04 AM Specimen Received Date: 11/17/2022 ??1:50 PM Specimen ID: [id number] Specimen Type: Blood Specimen Collection Start Date: 11/17/2022 11:05 AM Specimen Received Date: 11/17/2022 ??1:50 PM Specimen ID: [id number] Specimen Type: Blood Specimen Collection Start Date: 11/17/2022 11:05 AM Specimen Received Date: 11/17/2022 ??1:50 PM Specimen ID: [id number] Specimen Type: Blood Specimen Collection Start Date: 11/17/2022 11:04 AM Specimen Received Date: 11/17/2022 ??1:50 PM Estiven He Jr.OFei LAB MICROBIO LOGY - BLOOD ORDERABLES [facility] [address] [place] [address] [facility] [address] [place] [address] documented in this encounter Visit Diagnoses Diagnosis Hypertension And Chronic Kidney Disease Stage 4 (HCC)- Primary Hypertension And Chronic Kidney Disease Stage 4 (HCC) documented in this encounter Additional Health Concerns Assessment Noted Time PHQ-9 Depression Total Score: 3 01/04/20 18 10:38 AM CDT documented as of this encounter Care Teams Unix Analyst Relationship Specialty Start Date End Date Elsewhere, Pcp PCP - General Family Medicine 01/29/20 documented as of this encounter
--- OUTSIDE RECORDS SUMMARY | 2023-07-05 10:39 | XMS_ITS | Encounter Summary ---
Author Name Unknown Organization [facility] Address [address] [place] [address] Care Team Providers Care Community Representative Name Role Phone Elsewhere, Pcp Primary Care Provider Unavailabl e Reason for Visit * Appointment Request (Routine) - Closed Specialty Diagnoses / Procedures Referred By Robi t Referred To Contact Nephrology and Hypertension Referral ID Status Reason Start Date Expiration Date Visits Re quested Visits Authorized [id number] Closed 09/23/2022 09/23/2023 1 1 Encounter Details Date Type Department Care Team (Latest Contact Info) Description 10/26/2022 9:00 AM CDT External Outreach Division of Nephrology and Hypertension in [place], [place] [address] [place] [address] Haseeb Menon Jr., D.O. [address] [place] [address] Hypertension And Chronic Kidney Disease Stage 4 (HCC) (Primary Dx); Diabetes Mellitus Type 2 With Diabetic Nephropathy (HCC); Anemia Of Chronic Renal Disease; Peripheral Arterial Disease (HCC); Hyperparathyroidism Secondary (HCC); Atherosclerosis Of [place] Arteries Of Left Leg With Ulceration Of [...] week 03/24/2021 How often do you attend gnosticism or muslim serv ices? 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 Went to the Education opportunity, through [email or web address], was a bit disappointed, feeling he did [...] Chronic Kidney Disease Stage 4 ([facility]) I suspect he is actually end-stage [...] being accepted to the dialysis program at [facility]. #2 Diabetes Mellitus Type 2 With Diabetic Nephropathy ([facility]) His glycemic control is variable currently, [...] transfusion. #4 Peripheral Arterial Disease ([facility]) No open active wounds currently, no rest claudication. #5 Hyperparathyroidism Secondary ([facility]) Reminded him to take his 500 mg Tums 2 with each meal. This will help with his pruritus, as well as binding his phosphorus and improving his serum calciumlevel. #6 Atherosclerosis Of [place] Arteries Of Left Leg With Ulceration Of Unspecified Site (HCC) This has resolved #7 Depression Major Recurrent Moderate (HCC) He is well compensated from this perspective Please note he was accompanied to his visit today by his and daughter who are excellent residential field manager for him. 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
--- OUTSIDE RECORDS SUMMARY | 2023-07-05 10:39 | XMS_ITS | Encounter Summary ---
Author Name Unknown Organization [facility] Address [address] [place] [address] Care Team Providers Care Pants Maker Name Role Phone Elsewhere, Pcp Primary Care Provider Unavailabl e Reason for Visit * Appointment Request (Routine) - Closed Specialty Diagnoses / Procedures Referred By Robi t Referred To Contact Transplant Diagnoses Pre Procedures Pre [facility] Referral ID Status Reason Start Date Expiration Date Visits Re quested Visits Authorized [id number] Closed 09/16/2022 09/16/2023 1 1 Encounter Details Date Type Department Care Team (Latest Contact Info) Description 09/21/2022 9:00 AM CDT Clinical Communication [facility] [place], [place] [address] [place] [address] Regina Basurto R.N., C.C.T.C. [address] [place] [address] Social History Tobacco Use Types Packs/Day Years [...] How often do you attend druze or orthodox serv ices? Never 03/24/2021 Do [...] or slept in a custodial (including now)? 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
--- OUTSIDE RECORDS SUMMARY | 2023-07-05 10:39 | XMS_ITS | Encounter Summary ---
Author Name Unknown Organization [facility] Address [address] [place] [address] Care Team Providers Care Reporting Consultant Name Role Phone Elsewhere, Pcp Primary Care Provider Unavailabl e Encounter Details Date Type Department Care Team (Late st Contact Info) Description 11/01/2022 Documentation Division of Nephrology and Hypertension in [place], [place] [address] [place] [phone] Deanna Dias M.SFeiN., R.N. [address] [place] [phone] Social History Tobacco Use Types Packs/Day Years [...] How often do you attend pentecostal or jain serv ices? Never 03/24/2021 Do [...] your living situation today? [facility] place [facility] 10/26/2022 Education Answer Date Recorded What is the highest level of school you have completed or the highest degree you have received? 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
--- OUTSIDE RECORDS SUMMARY | 2023-07-05 10:39 | XMS_ITS | Encounter Summary ---
Author Name Unknown Organization [facility] Address [address] [place] [address] Care Team Providers Care Medical Lab Scientist Name Role Phone Elsewhere, Pcp Primary Care Provider Unavailabl e Encounter Details Date Type Department Care Team (Late st Contact Info) Description 11/05/2022 Clinical Communication Division of Nephrology and Hypertension in [place], [place] [address] [place] [address] Haseeb Menon Jr., D.O. [address] [place] [address] Social History Tobacco Use Types Packs/Day Years [...] How often do you attend faith or synagogue serv ices? Never 03/24/2021 Do [...] [facility] - Occupational Stress Questionnaire Answer Date [...] Sex Assigned at Male 03/24/2021 8:13 PM SPA DIRECTOR/FINANCE Gender Identity Male 08/31/2019 2:40 PM CDT [...] of this encounter Care Teams Medical Lab Scientist Relationship Specialty Start Date End Date Elsewhere, Pcp PCP - General Family Medicine 01/29/20 documented as of this encounter
--- OUTSIDE RECORDS SUMMARY | 2023-07-05 10:39 | XMS_ITS | Encounter Summary ---
Author Name Unknown Organization [facility] Address [address] [place] [address] Care Team Providers Care Freelance Translator Name Role Phone Elsewhere, Pcp Primary Care Provider Unavailabl e Encounter Details Date Type Department Care Team (Late st Contact Info) Description 10/27/2022 Episode Changes Division of Nephrology and Hypertension in [place], [place] [address] [place] [phone] Malathi Penaloza, R.N. [address] [place] [address] Social History Tobacco Use Types Packs/Day Years [...] week 03/24/2021 How often do you attend yazidi or scientologist serv ices? Never 03/24/2021 Do you belong to any clubs o r organizations such as yazidi groups, unions, fraternal or athletic groups, or [...] Date Recorded PHQ-2 Score 0 10/20/2018 [facility] of Occupat ional Health [...] living situation today? I have a [facility] place to live 10/26/2022 Education Answer Date Recorded What is the highest level of school you have completed or the highest degree you have received? 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
--- OUTSIDE RECORDS SUMMARY | 2023-07-05 10:39 | XMS_ITS | Encounter Summary ---
Author Name Unknown Organization [facility] Address [address] [place] [address] Care Team Providers Care Tripper Name Role Phone Elsewhere, Pcp Primary Care Provider Unavailabl e Encounter Details Date Type Department Care Team (Latest Contact Info) Description 11/17/2022 10:28 AM CDT - 11/17/2022 11:17 AM CDT Hospital Encounter Department of Laboratory Medicine and Pathology, [facility] [place], [place] [address] [place] [address] Haseeb Menon Jr., D.O. [address] [place] [address] Hypertension And Chronic Kidney Disease Stage 4 [...] How often do you attend tenriism or restoration serv ices? Never 03/24/2021 Do [...] Answer Date Recorded PHQ-2 Score 0 10/20/2018 [facility] [place] of Occupat ional Health - Occupational Stress [...] your living situation today? I have a [facility] place to live 10/26/2022 Education Answer Date Recorded What is the highest level of school you have completed or the highest degree you have received? 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/2021 8:13 PM SAMPLE EXAMINER Gender Identity Male 08/31/2019 2:40 PM CDT [...] TAKE ONE CAPSULE BY MOUTH EVERY DAY [facility] 0 01/14/2022 nortriptyline (PAMELOR) 50 mg capsule [...] Antibody, Serum (11/17/2022 11:05 AM CDT) Pathologist [facility] HBs Antibody, S Negative 11/17/2022 9:12 PM CDT [facility] Comment: Patient is presumed to be not immune to infection with HBV. ----REFERENCE VALUE---- Unvaccinated: Negative Vaccinated: Positive HBs Antibody, Quantitative, S <5.0 mIU/mL 11/17/2022 9:12 PM CDT [facility] Comment: ----REFERENCE VALUE---- Unvaccinated: <5.0 Vaccinated: >=12.0 Blood (Blood, Venous) 11/17/2022 11:05 AM CDT 11/17/2022 4:58 PM CDT Haseeb Menon Jr., D.O. LAB MICROBIO LOGY - BLOOD ORDERABLES [facility] [address] [place] [address] [facility] [address] [place] [address] * Hepatitis B Surface Antigen (11/17/2022 11:05 AM CDT) [facility] HBs Antigen, S Negative Negative 11/17/2022 8:51 PM CDT [facility] Blood (Blood, Venous) 11/17/2022 11:05 AM CDT 11/17/2022 2:53 PM CDT Haseeb Menon Jr., D.O. LAB MICROBIO LOGY - BLOOD ORDERABLES [facility] [address] [place] [address] [facility] [address] [place] [address] * HBc Total Ab, Serum (11/17/2022 11:05 AM CDT) Pathologist [facility] HBc Total Ab, S Negative Negative 11/17/2022 9:12 PM CDT [facility] Blood (Blood, Venous) 11/17/2022 11:05 AM CDT 11/17/2022 4:58 PM CDT Haseeb Menon Jr., D.O. LAB MICROBIO LOGY - BLOOD ORDERABLES Performing Organization Address [facility] Co de Phone Number [place] [phone] [place], [place] [phone] [place] [address] [place] [address] * HCV Ab Scrn w/Reflex to HCV PCR, Serum (11/17/2022 11:05 AM CDT) [facility] HCV Ab Screen, S Negative Negative 11/17/2022 9:09 PM CDT [facility] Comment:Beouvw-dd-aizixh rat io is <1.00. Blood (Blood, Venous) 11/17/2022 11:05 AM CDT 11/17/2022 2:53 PM CDT Haseeb Menon Jr., D.O. LAB MICROBIO LOGY - BLOOD ORDERABLES Performing Organization Address [facility] de Phone Number [place] [phone] [place] [address] [place] [phone] [place] [address] * QuantiFERON-Tb Gold Plus, Blood (11/17/2022 11:04 AM CDT) [facility] QuantiFERON-TB Gold Plus Result Negative Negative 11/18/2022 10:55 AM CDT [facility] Comment: No interferon-gamma response to M. [...] Result 0.06 IU/mL 11/18/2022 10:55 AM CDT [facility] Blood (Blood, Venous) 11/17/2022 11:04 AM CDT 11/17/2022 1:50 PM CDT Narrative [facility] - 11/18/2022 10:55 AM CDT Specimen Information: Specimen ID: [id number] Specimen Type: Blood Specimen Collection Start Date: 11/17/2022 11:04 AM Specimen Received Date: 11/17/2022 ??1:50 PM Specimen ID: [id number] Specimen Type: Blood Specimen Collection Start Date: 11/17/2022 11:05 AM Specimen Received Date: 11/17/2022 ??1:50 PM Specimen ID: [id number] Specimen Type: Blood Specimen Collection Start Date: 11/17/2022 11:05 AM Specimen Received Date: 11/17/2022 ??1:50 PM Specimen ID: [id number] Specimen Type: Blood Specimen Collection Start Date: 11/17/2022 11:04 AM Specimen Received Date: 11/17/2022 ??1:50 PM Haseeb Menon Jr., D.O. LAB MICROBIO LOGY - BLOOD ORDERABLES [facility] [address] [place] [address] [facility] [address] [place] [address] documented in this encounter Visit Diagnoses Diagnosis Hypertension And Chronic Kidney Disease Stage 4 (HCC) documented in this encounter Additional Health Concerns Assessment Noted Time PHQ-9 Depression Total Score: 3 01/04/20 18 10:38 AM CDT documented as of this encounter Care Teams Tripper Relationship Specialty Start Date End Date Elsewhere, Pcp PCP - General Family Medicine 01/29/20 documented as of this encounter
--- OUTSIDE RECORDS SUMMARY | 2023-07-05 10:39 | XMS_ITS | Encounter Summary ---
Author Name Unknown Organization [facility] Address [address] [place] [address] Care Team Providers Care Industrial/Organizational Psychologist Name Role Phone Elsewhere, Pcp Primary Care Provider Unavailabl e Encounter Details Date Type Department Care Team (Late st Contact Info) Description 10/15/2022 Clinical Communication Division of Nephrology and Hypertension in [place], [place] [address] [place] [address] Farrah Barnes M.D., Ph.D. [address] [place] [address] Social History Tobacco Use Types Packs/Day Years [...] How often do you attend pentecostal or nondenominational serv ices? Never 03/24/2021 Do [...] Answer Date Recorded PHQ-2 Score 0 10/20/2018 [facility] of Occupat ional Health [...] or slept in a penitentiary (including now)? 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 - 10/15/2022 1:39 PM CDT I have contacted Mr. Walton to discuss his most recent labs done today. His creatinine is slightlyhigher than his last values done at [facility], likely a fluctuation within his new baseline. [...] documented as of this encounter Care Teams Industrial/Organizational Psychologist Relationship Specialty Start Date End Date Elsewhere, Pcp PCP - General Family Medicine 01/29/20 documented as of this encounter
--- OUTSIDE RECORDS SUMMARY | 2023-07-05 10:39 | XMS_ITS | Encounter Summary ---
Author Name Unknown Organization [facility] Address [address] [place] [address] Care Team Providers Care Pattern Storage Clerk Name Role Phone Elsewhere, Pcp Primary Care Provider Unavailabl e Reason for Visit * Reason Onset Date Comments Txp Initial RN Phone Interview 09/21/2022 Encounter Details Date Type Department Care Team (Latest Contact Info) Description 09/21/2022 Clinical Communication [facility]ardo [facility] [place], [place] [address] [place] [address] Regina Basurto R.N., C.C.T.C. [address] [place] [phone] Txp Initial RN Phone Interview Social History [...] How often do you attend baptism or mormonism serv ices? 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 Stenting done at [facility] and images in eads. Hx of CVA [...] No Informed of COVID vaccine requirement: Yes Avionics Systems Repairer Utilized: No Phone Screen Type: Kidney Completed [...] (Benefit check not needed for Medicare or [facility] Insurance) Do you know your GFR? Yes, [...] NA Pap: NA Cardiovascular History: HTN: Yes SC: No CVA/TIA: Yes mini stroke 15-20 years [...] Information for Kidney, Kidney/Pancreas, andPancreas Transplant Candidates [id number] was reviewed with the patient via telephone call. Confirmed Onesimo Walton's interest in pursuing a kidney transplant evaluation at [facility]. The patient verbalized understanding of [...] documented as of this encounter Care Teams Pattern Storage Clerk Relationship Specialty Start Date End Date Elsewhere, Pcp PCP - General Family Medicine 01/29/20 documented as of this encounter
--- OUTSIDE RECORDS SUMMARY | 2023-07-05 10:39 | XMS_ITS | Encounter Summary ---
Author Name Unknown Organization [facility] Address [address] [place] [address] Care Team Providers Care Money Room Supervisor Name Role Phone Elsewhere, Pcp Primary Care Provider Unavailabl e Reason for Visit * Appointment Request (Routine) - Closed Specialty Diagnoses / Procedures Referred By Robi t Referred To Contact Nephrology and Hypertension Referral ID Status Reason Start Date Expiration Date Visits Re quested Visits Authorized [id number] Closed 08/27/2022 08/27/2023 1 Encounter Details Date Type Department Care Team (Latest Contact Info) Description 09/14/2022 9:00 AM CDT External Outreach Division of Nephrology and Hypertension in [place], [place] [address] [place] [address] Haseeb Menon Jr., D.O. [address] [place] [address] Hypertension And Chronic Kidney Disease Stage 4 [...] How often do you attend taoism or oriental orthodox serv ices? 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
--- OUTSIDE RECORDS SUMMARY | 2023-07-05 10:39 | XMS_ITS | Encounter Summary ---
Author Name Unknown Organization [facility] Address [address] [place] [address] Care Team Providers Care Housekeeper Caregiver Name Role Phone Elsewhere, Pcp Primary Care Provider Unavailabl e Reason for Referral * Outpatient (Routine) - Closed Specialty Diagnoses / Procedures Referred By Robi hong Referred To Contact Nephrology and Hypertension / Dialysis Diagnoses Hypertension And Chronic Kidney Disease Stage 4 (HCC) 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) Haseeb Menon Jr., D.O. [address] [place] [address] [facility] Referral ID Status Reason Start Date Expiration Date Visits Re quested Visits Authorized [id number] Closed 09/14/2022 09/14/2023 1 1 Reason for Visit * Outpatient (Routine) - Closed Specialty Diagnoses / Procedures Referred By Robi hong Referred To Contact Nephrology and Hypertension / Dialysis Diagnoses Hypertension And Chronic Kidney Disease Stage 4 (HCC) 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) Haseeb Menon Jr., D.OFei [address] [place] [address] [facility] Referral ID Status Reason Start Date Expiration Date Visits Re quested Visits Authorized [id number] Closed 09/14/2022 09/14/2023 1 1 Encounter Details Date Type Department Care Team (Latest Contact Info) Description 11/01/2022 12:32 PM CDT - 11/01/2022 11:59 PM CDT Hospital Encounter Division of Nephrology and Hypertension, [facility], in [place], [place] [address] [place] [address] Haseeb Menon Jr., D.O. [address] [place] [phone] Tee Celeste M.D., Ph.D. [address] [place] [phone] Hypertension And Chronic Kidney Disease Stage 4 [...] often do you attend roman catholic or yazdanism serv ices? Never 03/24/2021 Do [...] Answer Date Recorded PHQ-2 Score 0 10/20/2018 [facility] of Occupat ional Health - Occupational [...] your living situation today? I have a [facility] place to live 10/26/2022 Education Answer Date Recorded What is the highest level of school you have completed or the highest degree you have received? 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 Note patient is from [facility] and would undergo his outpatient training for peritoneal dialysis outside of the [place] system. Tee Celeste MD documented in this [...] documented as of this encounter Care Teams Housekeeper Caregiver Relationship Specialty Start Date End Date Elsewhere, Pcp PCP - General Family Medicine 01/29/20 documented as of this encounter
--- OUTSIDE RECORDS SUMMARY | 2023-07-05 10:40 | XMS_ITS | Encounter Summary ---
Author Name Unknown Organization [facility] Address [address] [place] [address] Care Team Providers Care Spring Salvage Worker Name Role Phone Elsewhere, Pcp Primary Care Provider Unavailabl e Reason for Visit * Reason Onset Date Comments Med Question 07/08/2022 Encounter Details Date Type Department Care Team (Latest Contact Info) Description 07/08/2022 Clinical Communication Division of Nephrology and Hypertension in [place], [place] [address] [place] [address] Haseeb Menon Jr., D.O. [address] [place] [address] Med Question Social History Tobacco Use Types [...] week 03/24/2021 How often do you attend mandaen or uatsdin serv ices? 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 His PCP would like Dr. Menon's opinion on what medication they should give the patient that is not too harmful for his kidneys. Patient tells me he has been on prednisone for the past week but as soon as he stopped taking it his hand started swelling again. His PCP suggested Uloric or Allopurinol. CIATE PROFESSOR OF CHEMISTRY documented in this encounter Plan of Treatment Not on file documented as of this encounter Visit Diagnoses Not on filedocumented in this encounter Additional Health Concerns Assessment Noted Time PHQ-9 Depression Total Score: 3 01/04/20 18 10:38 AM CDT documented as of this encounter Care Teams Spring Salvage Worker Relationship Specialty Start Date End Date Elsewhere, Pcp PCP - General Family Medicine 01/29/20 documented as of this encounter
--- OUTSIDE RECORDS SUMMARY | 2023-07-05 10:40 | XMS_ITS ---
Author Name Unknown Organization [facility] Address [address] [place] [address] Care Team Providers Care Floral Department Specialist Name Role Phone Elsewhere, Pcp Primary Care Provider Unavailabl e Transplant Episode Kidney Candidate [place], [place]) - [facility] Referred on 09/16/2022 Marked as Ineligible on 09/21/2022 Reason: Surgical Contraindication Kidney CoordinatorDetiffayn Becerra R.N., C.C.T.C. Email: [email or web address] Scores Score Value Updated Exceptions/Reas ons CPRA Not available EPTS (Calc) 71 07/05/2023 Care Team Name Role Phone Fax Email Regina Becerra R.N., C.C.T.C. Kidney Coordinator [phone] [email or web address] Haseeb Menon Jr., D.O. Referring Provider [email or web address] Pre-Transplant Referred: 09/16/2022
--- OUTSIDE RECORDS SUMMARY | 2023-07-05 10:40 | XMS_ITS | Encounter Summary ---
Author Name Unknown Organization [facility] Address [address] [place] [address] Care Team Providers Care Lunchroom Supervisor Name Role Phone Elsewhere, Pcp Primary Care Provider Unavailabl e Encounter Details Date Type Department Care Team (Latest Contact Info) Description 09/06/2022 10:39 AM CDT - 09/06/2022 11:59 PM CDT Hospital Encounter Department of Laboratory Medicine in [place], [place] [address] [place] [address] Haseeb Menon Jr., D.O. 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) Depression Major Recurrent Moderate (HCC) IRON AND TOT IRON-BINDING CAPACITY, S/P Routine 09/06/2022 11:04 AM CDT Hypertension And Chronic Kidney Disease Stage 4 (HCC) Diabetes Mellitus Type 2 With Diabetic Nephropathy (HCC) Anemia Of Chronic Renal Disease Hyperparathyroidism Secondary (HCC) Atherosclerosis Of [place] Arteries Of Left Leg With Ulceration Of Unspecified Site (HCC) Depression Major Recurrent Moderate (HCC) CBC WITH DIFFERENTIAL, B Routine 09/06/2022 11:04 AM CDT Hypertension And Chronic Kidney Disease Stage 4 (HCC) Diabetes Mellitus Type 2 With Diabetic Nephropathy (HCC) Anemia Of Chronic Renal Disease Hyperparathyroidism Secondary (HCC) Atherosclerosis Of [place] Arteries Of Left Leg With Ulceration Of Unspecified Site (HCC) Depression Major Recurrent Moderate (HCC) URIC ACID, S/P Routine 09/06/2022 11:04 AM CDT Hypertension And Chronic Kidney Disease Stage 4 (HCC) Diabetes Mellitus Type 2 With Diabetic Nephropathy (HCC) Anemia Of Chronic Renal Disease Hyperparathyroidism Secondary (HCC) Atherosclerosis Of [place] Arteries Of Left Leg With Ulceration Of Unspecified Site (HCC) Depression Major Recurrent Moderate (HCC) PARATHYROID HORMONE (PTH), S Routine 09/06/2022 11:04 AM CDT Hypertension And Chronic Kidney Disease Stage 4 (HCC) Diabetes Mellitus Type 2 With Diabetic Nephropathy (HCC) Anemia Of Chronic Renal Disease Hyperparathyroidism Secondary (HCC) Atherosclerosis Of [place] Arteries Of Left Leg With Ulceration Of Unspecified Site (HCC) Depression Major Recurrent Moderate (HCC) HEMOGLOBIN A1C, B Routine 09/06/2022 11: 04 AM CDT Hypertension And Chronic Kidney Disease Stage 4 (HCC) Diabetes Mellitus Type 2 With Diabetic Nephropathy (HCC) Anemia Of Chronic Renal Disease Hyperparathyroidism Secondary (HCC) Atherosclerosis Of [place] Arteries Of Left Leg With Ulceration Of Unspecified Site (HCC) Depression Major Recurrent Moderate (HCC) FERRITIN, S Routine 09/06/2022 11:04 AM CDT Hypertension And Chronic Kidney Disease Stage 4 (HCC) Diabetes Mellitus Type 2 With Diabetic Nephropathy (HCC) Anemia Of Chronic Renal Disease Hyperparathyroidism Secondary (HCC) Atherosclerosis Of [place] Arteries Of [...] LAB BLOOD AD D-ON Performing Organization Address City/[facility]/ZIP Co de Phone Number [facility] [address] [place] [address], [facility] - [address] [address] * Uric Acid (09/06/2022 11:04 AM CDT) Uric Acid, P 5.8 3.7 - 8.0 mg/dL 09/06/2022 4:47 PM CDT AUST Blood (Blood, Venous) 09/06/2022 11:04 AM CDT 09/06/2022 4:24 PM CDT Haseeb Menon Jr., D.O. LAB BLOOD AD D-ON Performing Organization Address [facility] Co de Phone Number [facility] [address] [place] [address], [facility] - [facility] [address] [place] [address] * (ABNORMAL) Parathyroid Hormone (PTH) (09/06/2022 11:04 AM CDT) Parathyroid Hormone (PTH), S 240(H) 15 - 65 pg/mL 09/06/2022 5:01 PM CDT AUST Comment: Biotin has been identified by the temper mill operator as a potential interfering substance. Higher [...] LAB BLOOD AD D-ON Performing Organization Address City/[facility] Co de Phone Number [facility] [address] [place] [phone], [facility] AUST [facility] - [facility] [address] [place] [address] * (ABNORMAL) Ferritin (09/06/2022 11:04 AM CDT) Ferritin, S 640(H) 31 - 409 mcg/L 09/06/2022 3:48 PM CDT OWAT Comment: Biotin has been identified by the temper mill operator as a potential interfering substance. Higher [...] LAB BLOOD AD D-ON Performing Organization Address [facility] Co de Phone Number [facility] [address] [place] [address], [facility] OWAT [facility] in [place] [address] [place] [phone] * (ABNORMAL) Hemoglobin A1c (09/06/2022 11:04 AM [...] LAB BLOOD AD D-ON Performing Organization Address [facility]/ZIP Co de Phone Number [facility] [address] [address], [facility] OWAT [facility] in [place] [address] [place] [address] * (ABNORMAL) Renal Function Panel (09/06/2022 11:04 [...] 11:04 AM CDT 09/06/2022 4:24 PM CDT [facility] - 09/06/2022 4:47 PM CDT Specimen Information: Specimen ID: [id number] Specimen Type: Blood Specimen Collection Start Date: 09/06/2022 11:04 AM Specimen Received Date: 09/06/2022 ??4:24 PM Specimen ID: [id number] Specimen Type: Blood Specimen Collection Start Date: 09/06/2022 11:04 AM Specimen Received Date: 09/06/2022 ??1:38 PM Haseeb Menon Jr., D.O. LAB BLOOD AD D-ON [facility] [address] [place] [address], [facility] OWAT [facility] in [place] [address] [place] [address] [facility] [address] [place] [address] * (ABNORMAL) CBC with Differential, Blood (09/06/2022 11:04 AM CDT) Hemoglobin 8.8(L) 13.2 - 16.6 g/dL 09/06/2022 [...] CDT 09/06/2022 11:04 AM CDT Estiven He Jr.O. 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
--- OUTSIDE RECORDS SUMMARY | 2023-07-05 10:40 | XMS_ITS | Encounter Summary ---
Author Name Unknown Organization [facility] Address [address] [place] [address] Care Team Providers Care Epidemiology Internship Name Role Phone Elsewhere, Pcp Primary Care Provider Unavailpaola e Encounter Details Date Type Department Care Team (Late st Contact Info) Description 08/19/2016 Historical Ophthalmology [facility] Chalo Holland Jr., M.D. 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 Gender Identity Male 08/31/2019 2:40 PM [...] IOL OU CDM Reports - EYEGEN Id: [id number] Status: Fnl documented in this encounter Plan of Treatment Not on file documented as of this encounter Visit Diagnoses Not on filedocumented in this encounter Additional Health Concerns Infection Onset Date Last Indicated Resolved Time COVID19 Pending 05/08/2020 05/08/2020 05/08/2020 2 :44 PM CAN MAKER Assessment Noted Time PHQ-9 Depression Total Score: 7 08/17/19 17 9:01 AM CDT documented as of this encounter Care Teams Epidemiology Internship Relationship Specialty Start Date End Date Elsewhere, Pcp PCP - General Family Medicine 01/29/20 documented as of this encounter
--- OUTSIDE RECORDS SUMMARY | 2023-07-05 10:40 | XMS_ITS | Encounter Summary ---
Author Name Unknown Organization [facility] Address [address] [place] [address] Care Team Providers Care Digital Sales Representative Name Role Phone Elsewhere, Pcp Primary Care Provider Unavailabl e Encounter Details Date Type Department Care Team (Late st Contact Info) Description 07/05/2022 Orders Only Division of Nephrology and Hypertension in [place], [place] [address] [place] [address] Haseeb Menon Jr., D.O. [address] [place] [address] Social History Tobacco Use Types Packs/Day Years [...] How often do you attend presybeterian or christianity serv ices? 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
--- OUTSIDE RECORDS SUMMARY | 2023-07-05 10:40 | XMS_ITS | Encounter Summary ---
Author Name Unknown Organization [facility] Address [address] [place] [address] Care Team Providers Care Ostomy Rn Name Role Phone Elsewhere, Pcp Primary Care Provider Unavailabl e Reason for Visit * Reason Onset Date Comments Amlodipine RX 07/01/2022 Encounter Details Date Type Department Care Team (Latest Contact Info) Description 07/01/2022 Clinical Communication Division of Nephrology and Hypertension in [place], [place] [address] [place] [address] Haseeb Menon Jr., D.O. [address] [place] [address] Amlodipine RX Social History Tobacco Use Types [...] often do you attend amish or pentecostalism serv ices? 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 [...] if 10 mg is correct. Thank you. [employer] documented in this encounter Plan of Treatment Not on file documented as of this encounter Visit Diagnoses Not on filedocumented in this encounter Additional Health Concerns Assessment Noted Time PHQ-9 Depression Total Score: 3 01/04/20 18 10:38 AM CDT documented as of this encounter Care Teams Ostomy Rn Relationship Specialty Start Date End Date Elsewhere, Pcp PCP - General Family Medicine 01/29/20 documented as of this encounter
== END 2023-07-05 10:32 | disposition home or self-care (01) ==
LOC: WOUND 10:31
PROVIDERS: PCP Family Medicine; Visit Provider Nurse Practitioner Family
DX: E11.621 Type 2 diabetes mellitus with foot ulcer (principal); L97.515 Non-pressure chronic ulcer of other part of right foot with muscle involvement without evidence of necrosis; N18.5 Chronic kidney disease, stage 5; I73.9 Peripheral vascular disease, unspecified; Z96.41 Presence of insulin pump (external) (internal)
CPT/HCPCS: 11042

== ENCOUNTER 2023-07-11 10:51 | Outpatient (CLI) | payer MEDICARE, BC, SELFPAY | END 2023-07-11 10:52 | disposition home or self-care (01) | LOC: WOUND 10:52 | PROVIDERS: PCP Family Medicine; Visit Provider Physician Assistant | DX: E11.621 Type 2 diabetes mellitus with foot ulcer (principal); L97.515 Non-pressure chronic ulcer of other part of right foot with muscle involvement without evidence of necrosis; N18.5 Chronic kidney disease, stage 5; I73.9 Peripheral vascular disease, unspecified; Z99.2 Dependence on renal dialysis; Z79.4 Long term (current) use of insulin; Z96.41 Presence of insulin pump (external) (internal); E11.22 Type 2 diabetes mellitus with diabetic chronic kidney disease | CPT/HCPCS: 11042 ==

== ENCOUNTER 2023-07-19 10:34 | Outpatient (CLI) | payer MEDICARE, BC, SELFPAY | END 2023-07-19 10:35 | disposition home or self-care (01) | LOC: WOUND 10:34 | PROVIDERS: PCP Family Medicine; Visit Provider Nurse Practitioner Family | DX: E11.22 Type 2 diabetes mellitus with diabetic chronic kidney disease (principal); E11.621 Type 2 diabetes mellitus with foot ulcer; L97.515 Non-pressure chronic ulcer of other part of right foot with muscle involvement without evidence of necrosis; N18.5 Chronic kidney disease, stage 5; Z96.41 Presence of insulin pump (external) (internal) | CPT/HCPCS: 11042 ==

== ENCOUNTER 2023-07-26 10:09 | Outpatient (CLI) | payer MEDICARE, BC, SELFPAY | END 2023-07-26 10:10 | disposition home or self-care (01) | PROVIDERS: PCP Family Medicine; Visit Provider Nurse Practitioner Family | DX: E11.621 Type 2 diabetes mellitus with foot ulcer (principal); L97.515 Non-pressure chronic ulcer of other part of right foot with muscle involvement without evidence of necrosis; I89.0 Lymphedema, not elsewhere classified; N18.5 Chronic kidney disease, stage 5; Z96.41 Presence of insulin pump (external) (internal) | CPT/HCPCS: 11042 ==

== ENCOUNTER 2023-07-29 14:35 | Emergency (ER) | payer MEDICARE, BC, SELFPAY ==
[2023-07-29 15:02] VITALS: BP 132/57; PULSE 63; RESP 18; TEMP 36.2; O2SAT 99; BMI 27.5
[2023-07-29 17:15] VITALS: BP 158/73; PULSE 74; RESP 16; O2SAT 98
--- NOTE | 2023-07-29 17:55 | CT_ITS ---
Patient: BRANDT MULLER Facility:?[facility] Patient ID:?[id number] Site Patient ID:?[id number]. Site :?[id number] Study:?CT-Head w/o-07/29/2023 6:06:01 PM Ordering Physician:Abby Melendez Final Report: INDICATION: Headaches. Dizziness. TECHNIQUE: CT of the head without contrast. Coronal and sagittal reformats are included. COMPARISON: None. FINDINGS: No CT evidence of acute cortical infarct. No loss of lizama white matter differentiation. No hyperdense vessels to suggest intracranial thrombus. No acute intracranial hemorrhage. No mass effect or midline shift. No hydrocephalus or extra-axial collections. Patchy white matter hypoattenuation, typical for chronic microvascular ischemic change. Intracranial vascular calcifications. No acute osseous abnormalities. Moderate mucosal thickening left frontoethmoidal recess. Complete opacification of left-sided anterior ethmoid air cells. Right mastoid tip effusion. Left-sided mastoid air cells are clear. Normal soft tissues. IMPRESSION: IMPRESSION:1. No CT evidence of acute cortical infarct. No acute intracranial hemorrhage. No other acute intracranial findings. Please note that all CT scans at this facility use dose modulation, iterative reconstruction, and/or weight-based dosing when appropriate to reduce radiation dose to as low as reasonably achievable. Dictated by Devyn Garcia MD @ 07/29/2023 6:36:30 PM Signed by:?Devyn Garcia MD @07/29/2023 6:36:30 PM (Electronic Signature)
--- NOTE | 2023-07-29 18:17 | ED.GENADULT ---
HPI - General Adult General Chief complaint: Headache/Migraine Stated complaint: Dizzy, pain in hips/legs Time Seen by Provider: 07/29/23 17:07 Source: patient, family, RN notes reviewed and old records reviewed Mode of arrival: ambulatory Limitations: no limitations History of Present Illness HPI narrative: Patient is a 73-year-old male here with his and daughter for evaluation of a number of different concerns. Patient says his primary concern is his back and leg pain which he has had for a number of years, he has pretty significant neuropathy takes oxycodone but does not find that helpful. Does have a topical lidocaine which helps but it wears off quickly. His says her primary concern was that his breathing sounded funny last night when he was sleeping. She says that she called the triage line today, he did make an appointment to see Dr. Riddle on Tuesday but the triage line said he should come into the ER to check his heart. He does not have any complaints about his breathing, has not felt short of breath, has not had any chest pain. He does note that when he stands up quickly he often gets a dizzy spell. This has been ongoing for a while as well but it seems to be getting worse. Also over the past few weeks, he has been getting more headaches. He has had falls, but denies hitting his head. These are holocranial, come and go, no real pattern to them. He does not have a headache right now. He is a dialysis patient. Medications are reviewed, he is on a diuretic as well as carvedilol, is not anticoagulated. Insulin-dependent diabetic. Currently being managed for an ulcer on his foot which they report is healing well. He has not had fevers. He denies nausea, vomiting, diarrhea, black or bloody stools. He does note that he generally gets dehydrated easily, does not drink a lot of fluids. His also reports that he has had urinary urgency lately, she says that the home health nurse who was there on Tuesday was worried about a urinary tract infection, but urine was never checked. Related Data Home Medications Medication Instructions Recorded Confirmed sodium bicarbonate 650 mg tablet 650 mg PO BID 11/18/21 06/02/23 ferrous sulfate 325 mg (65 mg 27 mg PO DAILY 05/19/22 06/02/23 iron) tablet aspirin 81 mg chewable tablet 81 mg PO QDAY 05/20/22 06/02/23 calcium citrate 200 mg (950 mg) 3,800 mg PO HS 05/20/22 06/02/23 tablet furosemide 40 mg tablet 40 mg PO QDAY 05/20/22 06/02/23 methocarbamol 750 mg tablet 750 mg PO Q6H PRN 05/20/22 06/02/23 acetaminophen 500 mg capsule 1,000 mg PO QID PRN 06/07/22 06/02/23 calcium carbonate 500 mg calcium 1,000 mg PO TID 09/17/22 06/02/23 (1,250 mg) chewable tablet (Calcium 500) diphenhydramine HCl 25 mg capsule 25 mg PO QHS 02/11/23 06/02/23 (Benadryl) pen needle,diabetic dual safty 30 #100 ea 07/29/23 07/29/23 gauge x 3/16 (BD AutoShield Duo Pen Needle) sodium hypochlorite 0.25 % 1 irrig irrigation DAILY 07/29/23 07/29/23 solution (Dakin's Solution) vitamin B comp no.3-folic acid 1 1 tab PO DAILY 07/29/23 07/29/23 mg-vit C 60 mg-biotin 300 mcg tablet (Linda-Amanda Rx) Previous Rx's Medication Instructions Recorded allopurinol 100 mg tablet 100 mg PO QDAY #90 tabs 09/15/22 duloxetine 30 mg capsule,delayed 30 mg PO QDAY #90 caps 02/15/23 release atorvastatin 20 mg tablet 20 mg PO HS #90 tabs 03/02/23 pramipexole 1 mg tablet 1 mg PO QPM #90 tabs 03/02/23 nortriptyline 50 mg capsule 100 mg (2 x 50 mg) PO HS #180 caps 03/09/23 blood-glucose sensor (Dexcom G6 #3 ea 03/11/23 Sensor device) minocycline 100 mg capsule 100 mg PO QDAY #90 caps 04/11/23 omeprazole 40 mg capsule,delayed 40 mg PO QDAY #90 caps 05/05/23 release blood-glucose meter,continuous #1 ea 05/17/23 (Dexcom G6 Copra Processor) carvedilol 25 mg tablet 25 mg PO DAILY #90 tabs 05/20/23 blood-glucose transmitter (Dexcom #1 ea 05/25/23 G6 Transmitter device) doxepin 25 mg capsule 25 mg PO BID #180 caps 06/02/23 insulin aspart (niacinamide) See Rx Instructions subcut QDAY 06/02/23 (U-100) 100 unit/mL subcutaneous #100 mL solution (Fiasp U-100 Insulin) amoxicillin 875 mg-potassium 1 tab PO BID #20 tabs 06/03/23 clavulanate 125 mg tablet ergocalciferol (vitamin D2) 1,250 1,250 mcg PO QWEEK #12 caps 06/27/23 mcg (50,000 unit) capsule oxycodone 10 mg tablet 10 mg PO Q6H PRN pain #120 tabs 07/11/23 insulin aspart U-100 100 unit/mL 10 unit (0.1 mL) subcut TID #15 mL 07/19/23 (3 mL) subcutaneous pen (Novolog FlexPen U-100 Insulin aspart) insulin glargine 100 unit/mL (3 40 unit (0.4 mL) subcut QAM #15 mL 07/19/23 mL) subcutaneous pen (Lantus Solostar U-100 Insulin) pen needle, diabetic 30 gauge x #100 ea 07/19/23 5/16 (Pen Needle) Allergies Allergy/AdvReac Type Severity Reaction Status Date / Time morphine Allergy Severe itching Verified 06/02/23 10:36 and swelling pregabalin Allergy Severe itching Verified 06/02/23 10:36 and swelling gabapentin Allergy Intermediate swelling Verified 06/02/23 10:36 Rmstlkl-[id number]-[id number] Reductase Allergy Mild Unknown Verified 06/02/23 10:36 Inhibitor Review of Systems Status of ROS: Reports: 10 or more systems reviewed and unremarkable except as noted in History and below [facility] Medical History Diabetic foot ulcer ?E11.621 - Type 2 diabetes mellitus with foot ulcer (ICD-10) ?L97.509 - Non-pressure chronic ulcer of other part of unspecified foot with unspecified severity (ICD-10) Stage 5 chronic kidney disease ?N18.5 - Chronic kidney disease, stage 5 (ICD-10) Type 2 diabetes mellitus, with long-term current use of insulin ?E11.9 - Type 2 diabetes mellitus without complications (ICD-10) ?Z79.4 - [facility] (current) use of insulin (ICD-10) Mixed hyperlipidemia ?E78.2 - Mixed hyperlipidemia (ICD-10) Primary hypertension ?I10 - Essential (primary) hypertension (ICD-10) UTI (urinary tract infection) ?N39.0 - Urinary tract infection, site not specified (ICD-10) Unsteady gait ?R26.81 - Unsteadiness on feet (ICD-10) Cognitive impairment ?R41.89 - Other symptoms and signs involving cognitive functions and awareness (ICD-10) Leg pain ?M79.606 - Pain in leg, unspecified (ICD-10) Lumbar radiculopathy ?M54.16 - Radiculopathy, lumbar region (ICD-10) Abscess of skin ?L02.91 - Cutaneous abscess, unspecified (ICD-10) Chronic pruritus ?L29.9 - Pruritus, unspecified (ICD-10) Vitamin D deficiency ?E55.9 - Vitamin D deficiency, unspecified (ICD-10) Transient ischemic attack (2009) ?G45.9 - Transient cerebral ischemic attack, unspecified (ICD-10) Spinal stenosis of lumbar region ?M48.061 - Spinal stenosis, lumbar region without neurogenic claudication (ICD-10) Restless legs syndrome ?G25.81 - Restless legs syndrome (ICD-10) Peripheral arterial disease ?I73.9 - Peripheral vascular disease, unspecified (ICD-10) Major depressive disorder with single episode (09/18/07) ?F32.9 - Major depressive disorder, single episode, unspecified (ICD-10) Gout ?M10.9 - Gout, unspecified (ICD-10) Gastroesophageal reflux disease ?K21.9 - Gastro-esophageal reflux disease without esophagitis (ICD-10) Erectile dysfunction (04/23/06) ?N52.9 - Male erectile dysfunction, unspecified (ICD-10) Diabetic neuropathy ?E11.40 - Type 2 diabetes mellitus with diabetic neuropathy, unspecified (ICD-10) Diabetic gastroparesis (04/20/09) ?E11.43 - Type 2 diabetes mellitus with diabetic autonomic (poly)neuropathy (ICD-10) ?K31.84 - Gastroparesis (ICD-10) Chronic pain ?G89.29 - Other chronic pain (ICD-10) Surgical History History of repair of right rotator cuff (2004) ?Z98.890 - Other specified postprocedural states (ICD-10) History of tonsillectomy ?Z90.89 - Acquired absence of other organs (ICD-10) History of carpal tunnel release ?Z98.890 - Other specified postprocedural states (ICD-10) Status post insertion of iliac artery stent ?Z95.828 - Presence of other vascular implants and grafts (ICD-10) Status post epidural steroid injection (07/06/18) ?Z92.241 - Personal history of systemic steroid therapy (ICD-10) Status post cataract extraction and insertion of intraocular lens (2007) ?Z98.49 - Cataract extraction status, unspecified eye (ICD-10) ?Z96.1 - Presence of intraocular lens (ICD-10) History of angioplasty of peripheral vessel (05/27/17) ?Z98.62 - Peripheral vascular angioplasty status (ICD-10) History of amputation of left great toe (05/31/17) ?Z89.412 - Acquired absence of left great toe (ICD-10) Family History Sister Breast cancer, Onset Age: 70 Diabetes Brother Diabetes Stroke, Onset Age: 69 Heart disease, Onset Age: 69 Social History 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: -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[employer], 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, 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 No EtOH What is your current living situation?: I presently have a place to live Problems where you live: no known problems In the past 12 months, utilities in danger of being shut off: no In past 12 months, lack of transportation kept you from medical appts, meetings, work, or getting things needed for daily living: no In the past 12 mos, have been you worried that your food would run out before you had money to buy more?: never true In the past 12 mos, the food you bought just didn't last and you didn't have money to buy more?: never true Highest level of school completed/degree received: some college, no degree Smoking Status: Former smoker What tobacco products do you use: cigarettes Smoking packs per day: 0.5 Smoking cigarettes per day: 10.0 Years smoked: 40 Smoking pack-years: 20.00 Smoking quit date/years: <= 15 years ago Do you use any of these nicotine containing products: None Second hand tobacco smoke exposure: No How often do you have a drink containing alcohol: monthly or less Alcohol type details: rare AUDIT-C Alcohol total score: 1 Non-prescribed substance use: denies use Caffeine: Yes (pot of coffee daily) Are you now , , , , never or living with a partner: Social isolation score (0-1 are the most socially isolated patients): 1 How often does anyone, including family, friends and others, physically hurt you: never How often does anyone, including family, friends and others, insult or talk down to you: never How often does anyone, including family, friends and others, threaten you with harm: never How often does anyone, including family, friends and others, scream or curse at you: never Little interest or pleasure in doing things: more than half the days Feeling down, depressed, or hopeless: not at all service: No Exam Narrative: Exam Narrative: Vital signs as noted above. In general, an alert, well-appearing patient. Head: Normocephalic, atraumatic. Eyes: Pupils are equal reactive. Extraocular movements are full. No nystagmus. Conjunctivae are normal. ENT: Mucous membranes are dry. Throat is normal, tongue is midline. Neck: Supple without lymphadenopathy. Heart: Regular rate and rhythm. No murmur or rub. Lungs: Clear bilaterally. No increased work of breathing, crackles or wheezes. Abdomen: Soft and nontender. No organomegaly. Extremities: Trace edema. Venous stasis changes. No calf tenderness. Pulses intact. Neurologic: Patient is alert and oriented to person and place. Speech is fluent. Face is symmetric. Moves all extremities equally. Cerebellar function intact to finger-nose testing. Affect: Normal. Skin: Warm and dry. Well perfused. Const: Vital Signs, click to edit/add: Vital Signs - 24 hr 07/29/23 15:02 07/29/23 17:15 Temperature 97.2 F L Pulse Rate [Right Pulse Oximeter] 63 74 Respiratory Rate 18 16 Blood Pressure [Ri ght Upper Arm] 132/57 L 158/73 H Pulse Oximetry 99 98 Oxygen Delivery Me thod Room Air Room Air Documenting provider has reviewed patient's vital signs: yes Course Course ED Course: Discussed with patient and his family that chronic pain is generally not our strength in the ER. He does have a history of chronic pain, lumbar radiculopathy, spinal stenosis of the lumbar back, as well as neuropathy. He is already on topical medications as well as oxycodone, he is not suggesting fevers or other systemic symptoms, neurologic changes or other findings that suggest we need immediate imaging. Chronic pain is likely managed better through primary care or use of a pain clinic if needed. With regard to his dizzy spells, headaches, urinary urgency, those we can evaluate here in the ER, rule out dehydration, anemia, infection, intracranial bleeding or mass, metabolic derangement or other acute problem. Workup here included a CT scan of the head which by my review was negative, read as negative by Radiology as well. White blood cell count is normal at 9.5, hemoglobin is encouragingly higher than previous at 9.3. Platelet count is normal. His sodium was 130, potassium 3.4, chloride 91. BUN is 84 and creatinine is 4.9, commensurate with his chronic renal failure. Blood sugars 144. Calcium is mildly elevated at 11.2. Magnesium was 1.8. LFTs are unremarkable. CRP is mildly elevated at 6.8. BNP is elevated at 38 60, I believe he is due to dialyze tomorrow. TSH is normal at 1.7, urinalysis shows 0-2 red cells and 0-2 white cells. Mildly elevated CRP of undetermined significance at this time. He does have a chronic wound which certainly may be contributing. We did orthostatic vital signs here, his pulse is stable, blood pressure did drop from 167 systolic laying down to 103 systolic standing up, notably however at least in the ER he did not have dizziness with that postural hypotension. Unclear to me whether this is the cause for his dizzy spells or not. Given that he is asymptomatic right now and that this is been going on for a couple of months now, I think further outpatient follow-up if needed is reasonable. No focal neurologic signs today. His says he is feeling quite a bit better since he got here, she is comfortable waiting until Tuesday to talk further with Dr. Riddle at his scheduled clinic visit. If at any time he is acutely worse, develops new symptoms such as fever, difficulty breathing, chest pain, vomiting, etcetera, return to the emergency department for further evaluation. For now, continue current medications for chronic pain. Vital Signs Vital signs: Initial Vital Signs Temperature 97.2 F L 07/29/23 15:02 Temperature Source Temporal Artery Scan 07/29/23 15:02 Pulse Rate 63 07/29/23 15:02 Respiratory Rate 18 07/29/23 15:02 Blood Pressure 132/57 L 07/29/23 15:02 Blood Pressure Mean 82 07/29/23 15:02 Blood Pressure Position Sitting 07/29/23 15:02 Pulse Oximetry 99 07/29/23 15:02 Oxygen Delivery Method Room Air 07/29/23 15:02 Vital Signs Temperature 97.2 F L 07/29/23 15:02 Pulse Rate 63 07/29/23 15:02 Respiratory Rate 18 07/29/23 15:02 Blood Pressure 132/57 L 07/29/23 15:02 Pulse Oximetry 99 07/29/23 15:02 Oxygen Delivery Method Room Air 07/29/23 15:02 Temperature 97.2 F L 07/29/23 15:02 Pulse Rate 74 07/29/23 17:15 Respiratory Rate 16 07/29/23 17:15 Blood Pressure 158/73 H 07/29/23 17:15 Pulse Oximetry 98 07/29/23 17:15 Oxygen Delivery Method Room Air 07/29/23 17:15 Medical Decision Making Lab Data Labs: Lab Results 07/29/23 07/29/23 Range/Units 18:25 18:45 WBC 9.47 (4.50-11.00) K/uL RBC 3.11 L (4.30-5.90) m/uL Hgb 9.3 L (13.5-17.5) gm/dL Hct 30.0 L (37.0-53.0) % MCV 97 (80-100) fL MCH 30 (26-34) pg MCHC 31 L (32-36) gm/dL RDW Coeff of Amirah 16.5 H (11.5-15.5) % Plt Count 277 (140-440) K/uL Neut % (Auto) 62.0 (42.0-72.0) % Lymph % (Auto) 19.0 L (20-44) % Leake % (Auto) 11.2 H (0.0-11.0) % Eos % (Auto) 6.8 (0.0-7.0) % Baso % (Auto) 0.2 (0.0-3.0) % Neut # (Auto) 5.87 (1.7-7.0) K/uL Lymph # (Auto) 1.80 (0.90-2.90) K/uL Leake # (Auto) 1.10 H (0.00-0.90) K/UL Eos # (Auto) 0.64 H (0.00-0.50) K/uL Baso # (Auto) 0.02 (0.00-0.30) K/uL Abs Immat Gran (auto) 0.08 (0.00-0.30) K/uL Imm/Tot Granulo (auto) 0.8 % Sodium 130 L (135-149) mmol/L Potassium 3.4 L (3.6-5.1) mmol/L Chloride 91 L (96-114) mmol/L Carbon Dioxide 31 (20-32) mmol/L Anion Gap 8 (7-15) mEq/L BUN 84 H (7-30) mg/dL Creatinine 4.9 H (0.5-1.5) mg/dL Estimated Creat Clear 13.83 Estimated GFR 12 ml/min Glucose 144 H (60-115) mg/dL Lactate 0.8 (0.5-1.9) mmol/L Calcium 11.2 H (8.4-10.6) mg/dL Magnesium 1.8 (1.5-2.6) mg/dL Total Bilirubin 0.3 (0.1-1.5) mg/dL Direct Bilirubin 0.3 (0.0-0.5) mg/dL AST 37 H (12-35) U/L ALT 35 (4-50) U/L Alkaline Phosphatase 96 (40-150) U/L C-Reactive Protein 6.8 H (0.5-1.0) mg/dL NT-Pro-B Natriuret Pep 3860 pg/mL Total Protein 6.9 (6.0-8.3) g/dL Albumin 3.4 (3.3-5.0) g/dL TSH 1.750 (0.270-4.200) uIU/mL Urine Color Yellow (Yellow) Urine Appearance Clear (Clear) Urine pH 6.0 (5.0-8.5) Ur Specific Keller 1.010 (1.000-1.030) Urine Protein 1+ A (Negative) Urine Glucose (UA) Negative (Negative) Urine Ketones Negative (Negative) Urine Blood Trace-lysed A (Negative) Urine Nitrite Negative (Negative) Urine Bilirubin Negative (Negative) Urine Urobilinogen 0.2 (0.2-1.0) Ur Leukocyte Esterase Negative (Negative) Urine RBC 0-2 (0-2) Urine WBC 0-2 (0-5) Ur Squamous Epith Cells Moderate A (None-Few) Urine Bacteria Few A (None) Discharge Plan Discharge Clinical Impression: Orthostatic hypotension, Headache Patient Disposition: Home, Self-Care Condition: Improved Instructions: Dizziness (ED), General Headache (ED) Additional Instructions: Your tests are reassuring today. Your blood pressure does drop when you stand up, this may sometimes be contributing to your symptoms of lightheadedness with position changes. I would recommend discussing this with Dr. Riddle, to see if any medication changes may be appropriate. Your CT scan today is normal. There is no evidence of urinary tract infection. Return at any time for worsening such as fevers, chest pain, shortness of breath, vomiting, or other severe symptoms. Otherwise, see Dr. Riddle on Tuesday as planned. Prescriptions: No Action allopurinol 100 mg tablet 100 mg PO QDAY Qty: 90 3RF (DME) BD AutoShield Duo Pen Needle 30 gauge x 3/16 needle See Rx Instructions .ROUTE .MEDSUPPLY Qty: 100 Patient Comments: [NO ORIGINAL SIG] Rx Instructions: As directed Dakin's Solution 0.25 % solution 1 irrig irrigation DAILY Linda-Amanda Rx 1-60-300 mg-mg-mcg tablet 1 tab PO DAILY ferrous sulfate 325 mg (65 mg iron) tablet 27 mg PO DAILY Rx Instructions: Take 27 mg by mouth daily. States taking 27 mg daily aspirin 81 mg tablet,chewable 81 mg PO QDAY methocarbamol 750 mg tablet 750 mg PO Q6H PRN furosemide 40 mg tablet 40 mg PO QDAY acetaminophen 500 mg capsule 1,000 mg PO QID PRN Fiasp U-100 Insulin 100 unit/mL solution See Rx Instructions subcut QDAY MDD 100 Qty: 100 3RF Rx Instructions: subcutaneously every day; Uses about 80 units daily per insulin pump calcium citrate 200 mg (950 mg) tablet 3,800 mg PO HS Patient Comments: TAKE FOUR TABLETS BY MOUTH AT BEDTIME calcium carbonate [Calcium 500] 500 mg calcium (1,250 mg) tablet,chewable 1,000 mg PO TID Rx Instructions: with meals diphenhydramine HCl [Benadryl] 25 mg capsule 25 mg PO QHS sodium bicarbonate 650 mg tablet 650 mg PO BID duloxetine 30 mg capsule,delayed release(DR/EC) 30 mg PO QDAY Qty: 90 1RF pramipexole 1 mg tablet 1 mg PO QPM Qty: 90 1RF atorvastatin 20 mg tablet 20 mg PO HS Qty: 90 1RF nortriptyline 50 mg capsule 100 mg PO HS Qty: 180 1RF (DME) Dexcom G6 Sensor Device See Rx Instructions .ROUTE .COMPLEX Qty: 3 5RF Dose Instruction: CHANGE EVERY 10 DAYS Rx Instructions: CHANGE EVERY 10 DAYS minocycline 100 mg capsule 100 mg PO QDAY Qty: 90 1RF omeprazole 40 mg capsule,delayed release(DR/EC) 40 mg PO QDAY Qty: 90 3RF (DME) Dexcom G6 Copra Processor Misc See Rx Instructions .Route Qty: 1 0RF Rx Instructions: As directed carvedilol 25 mg tablet 25 mg PO DAILY Qty: 90 2RF (DME) Dexcom G6 Transmitter Device See Rx Instructions .Route Qty: 1 5RF Rx Instructions: As directed doxepin 25 mg capsule 25 mg PO BID Qty: 180 1RF amoxicillin-pot clavulanate 875-125 mg tablet 1 tab PO BID Qty: 20 0RF ergocalciferol (vitamin D2) 1,250 mcg (50,000 unit) capsule 1,250 mcg PO QWEEK Qty: 12 3RF oxycodone 10 mg tablet 10 mg PO Q6H PRN (Reason: pain) Qty: 120 0RF insulin glargine [Lantus Solostar U-100 Insulin] 100 unit/mL (3 mL) insulin pen 40 unit subcut QAM Qty: 15 1RF insulin aspart U-100 [Novolog FlexPen U-100 Insulin] 100 unit/mL (3 mL) insulin pen 10 unit subcut TID Qty: 15 1RF (DME) pen needle, diabetic [Pen Needle] 30 gauge x 5/16 needle See Rx Instructions .[facility] Qty: 100 3RF Rx Instructions: Injects 4 times daily Follow Up/Referrals: Rudy Riddle MD [Primary Care Provider] - Stand Alone Forms: MyHealth Info Instructions
[2023-07-29 18:33] LABS: Lactate Sepsis w/Reflex* 0.8 mmol/L (0.5-1.9)
[2023-07-29 18:34] LABS: Basophils Absolute Auto 0.02 K/uL (0.00-0.30); Basophils Percent Auto 0.2 % (0.0-3.0); Eosinophils Absolute Auto 0.64 K/uL (0.00-0.50); Eosinophils Percent Auto 6.8 % (0.0-7.0); Hemoglobin* 9.3 gm/dL (13.5-17.5); Immature Granulocytes Abs Auto 0.08 K/uL (0.00-0.30); Immature Granulocytes Pct Auto 0.8 %; Mean Corpuscular HGB Conc 31 gm/dL (32-36); Mean Corpuscular Hemoglobin 30 pg (26-34); Mean Corpuscular Volume 97 fL (80-100); Monocytes Percent Auto 11.2 % (0.0-11.0); Neutrophils Absolute Auto 5.87 K/uL (1.7-7.0); Platelet Count* 277 K/uL (140-440); RDW Coefficient of Variation % 16.5 % (11.5-15.5); Red Blood Count 3.11 m/uL (4.30-5.90); White Blood Count* 9.47 K/uL (4.50-11.00)
[2023-07-29 18:43] LABS: Slide Review Reflex No
[2023-07-29 18:49] LABS: Appearance Urine Clear (Clear); Bilirubin Urine Negative (Negative); Blood Urine Trace-lysed (Negative); Color Urine Yellow (Yellow); Glucose Urine Negative (Negative); Ketones Urine Negative (Negative); Leukocyte Esterase Urine Negative (Negative); Nitrite Urine Negative (Negative); Protein Urine 1+ (Negative); Urobilinogen Urine 0.2 (0.2-1.0)
[2023-07-29 18:51] LABS: Albumin* 3.4 g/dL (3.3-5.0); Chloride* 91 mmol/L (96-114); Sodium* 130 mmol/L (135-149)
[2023-07-29 18:52] LABS: Potassium* 3.4 mmol/L (3.6-5.1)
[2023-07-29 18:53] LABS: Creatinine* 4.9 mg/dL (0.5-1.5); Est. Creatinine Clearance* 13.83; Estimated Glomerular Filt Rate 12 ml/min
[2023-07-29 18:54] LABS: Alkaline Phosphatase* 96 U/L (40-150); Anion Gap 8 mEq/L (7-15); Aspartate Amino Transferase* 37 U/L (12-35); Bilirubin Direct* 0.3 mg/dL (0.0-0.5); Bilirubin Total* 0.3 mg/dL (0.1-1.5); Blood Urea Nitrogen* 84 mg/dL (7-30); Carbon Dioxide* 31 mmol/L (20-32); Total Protein* 6.9 g/dL (6.0-8.3)
[2023-07-29 18:55] LABS: Alanine Aminotransferase* 35 U/L (4-50); Calcium* 11.2 mg/dL (8.4-10.6); Glucose* 144 mg/dL (60-115); Magnesium* 1.8 mg/dL (1.5-2.6)
[2023-07-29 18:57] LABS: C Reactive Protein* 6.8 mg/dL (0.5-1.0)
[2023-07-29 19:00] VITALS: BP 103/68; BP 121/97; BP 167/83; PULSE 72; PULSE 75; PULSE 77
[2023-07-29 19:07] LABS: NT Pro B Type NatriureticPept* 3860 pg/mL
[2023-07-29 19:08] LABS: Bacteria Urine Few; RBC Urine 0-2 (0-2); Squamous Epithelial Cell Urine Moderate (None-Few); WBC Urine 0-2 (0-5)
[2023-07-29 19:51] LABS: PCR FLU A Negative PCR FLU A (Negative); PCR FLU B Negative PCR FLU B (Negative); PCR RSV Negative PCR RSV (Negative); SARS PCR* Negative SARS-CoV-2 (Negative)
== END 2023-07-29 20:15 | disposition home or self-care (01) ==
PROVIDERS: Emergency Provider Emergency Medicine; PCP Family Medicine
DX: R51.9 Headache, unspecified (principal); I95.1 Orthostatic hypotension
CPT/HCPCS: 36415; 70450; 80048; 80076; 81001; 83605; 83735; 83880; 84443; 85025; 86140; 87086; 87186; 87631; 99284

== ENCOUNTER 2023-08-02 10:29 | Outpatient (CLI) | payer MEDICARE, BC, SELFPAY | END 2023-08-02 10:30 | disposition home or self-care (01) | LOC: WOUND 10:30 | PROVIDERS: PCP Family Medicine; Visit Provider Nurse Practitioner Family | DX: E11.621 Type 2 diabetes mellitus with foot ulcer (principal); L97.515 Non-pressure chronic ulcer of other part of right foot with muscle involvement without evidence of necrosis; I89.0 Lymphedema, not elsewhere classified; N18.5 Chronic kidney disease, stage 5; Z96.41 Presence of insulin pump (external) (internal) | CPT/HCPCS: 11042 ==

== ENCOUNTER 2023-08-09 08:11 | Outpatient (CLI) | payer MEDICARE, BC, SELFPAY | END 2023-08-09 08:12 | disposition home or self-care (01) | LOC: WOUND 08:11 | PROVIDERS: PCP Family Medicine; Visit Provider Physician Assistant | DX: E11.621 Type 2 diabetes mellitus with foot ulcer (principal); I89.0 Lymphedema, not elsewhere classified; L97.515 Non-pressure chronic ulcer of other part of right foot with muscle involvement without evidence of necrosis; N18.5 Chronic kidney disease, stage 5; Z96.41 Presence of insulin pump (external) (internal); E11.22 Type 2 diabetes mellitus with diabetic chronic kidney disease | CPT/HCPCS: 97597 ==

== ENCOUNTER 2023-08-16 10:27 | Outpatient (CLI) | payer MEDICARE, BC, SELFPAY ==
--- NOTE | 2023-08-16 11:30 | XR_ITS ---
Patient: BRANDT MULLER Facility:?[facility] Patient ID:?[id number] Site Patient ID:?[id number]. Site :?[id number] Study:?XRay-Extremity Right FOOT 2 VIEW-08/16/2023 11:39:09 AM Ordering Physician:JOSHUA Final Report: INDICATION: Assess for osteomyelitis, diabetic ulcer. TECHNIQUE: Three views of the right foot. COMPARISON: 06/02/2023. FINDINGS: Prior amputation of the 3rd and 4th toes through the metatarsal necks. No specific radiographic evidence for osteomyelitis. No subcutaneous gas. IP joint, 1st MTP joint, and midfoot degenerative change. Dictated by Jad Nunez MD @ 08/17/2023 8:57:23 AM Signed by:?Jad Nunez MD @08/17/2023 8:57:23 AM (Electronic Signature)
== END 2023-08-16 10:28 | disposition home or self-care (01) ==
PROVIDERS: PCP Family Medicine; Visit Provider Nurse Practitioner Family
DX: E11.621 Type 2 diabetes mellitus with foot ulcer (principal); L97.515 Non-pressure chronic ulcer of other part of right foot with muscle involvement without evidence of necrosis; L97.516 Non-pressure chronic ulcer of other part of right foot with bone involvement without evidence of necrosis; E11.22 Type 2 diabetes mellitus with diabetic chronic kidney disease; N18.5 Chronic kidney disease, stage 5; I89.0 Lymphedema, not elsewhere classified; Z96.41 Presence of insulin pump (external) (internal)
CPT/HCPCS: 11042; 73620; 87070; 87186

== ENCOUNTER 2023-08-23 08:12 | Outpatient (CLI) | payer MEDICARE, BC, SELFPAY ==
--- OUTSIDE RECORDS SUMMARY | 2023-08-23 08:15 | XMS_ITS | Continuity of Care Document ---
Author Name Unknown Organization [facility] Address [address] [place] [address] Phone Care Team Providers Care Playground Attendant Name Role Phone Dot Warner Unavailable Unavailable Medications Medication Instructions Dosage Effective Dates (start - stop) Status Comments MINOCYCLINE HCL (unknown strength) Not Available - Active AMPICILLIN-SULBACTAM (unknown strength) Not Available - Active Procedures Procedure Date Office/Outpatient Visit,Est, Mod 2022 OFFICE/OUTPATIENT VISIT EST Phone Office/Outpatient Visit,Est, Mod 2022 Followup Hospital Care, [facility] 2021 Advance Directives Directive Yes / No Effective Date File Name No Information Encounters Encounter Description Practice Location Reason(s) For Visit Diagnoses Date Provider Providers Copied on Encounter [facility], [address], [place], [place], [id number] , [place] tel: [phone] [facility] - [facility] No Information [address] [facility], [address] [place] [address] [address], [place], [address], [place]. tel: [phone] Office/Outpa tient Visit,Est, Mod [facility], [address], [place], [place], [id number] , [place] tel: [phone] [facility] - [facility] Spinal stenosis, lumbar region with neurogenic claudication [address] [facility], [address] [place] [address], [address], [place], [address], [place]. tel: [phone] Referring Provider: Lisbeth Thomas, [facility] [address], [address], [place], [address]. [phone] OFFICE/OUTPA TIENT VISIT EST Phone [facility], [address], [place], [place], [id number] , [place] tel:[phone] [facility] No Information [address] [facility], [address], [address], [place], [address], [place]. tel:[phone] Referring Provider: Lisbeth Thomas, [facility] [address], [address], [place], [address]. tel:[phone] Office/Outpa tient Visit,Est, Mod [facility], [address], [place], [place], [id number] , [place] [phone] [facility] Low back pain, unspecifiedOther specified soft tissue disorders [address] [facility], [address], [address], [place], [address], [place]. tel:[phone] Referring Provider: Lisbeth Thomas, [facility] [address], [address], [place], [address]. tel:[phone] Followup Hospital Care, Moderate [facility], [address], [place], [place], [id number] , [place] [phone] [facility] No Information [address] [facility], [address], [address], [place], [address], [place]. tel:[phone] Referring Provider: Rudy Riddle, [facility] And [address], [address]. tel:[phone] Family History Family Member Type Diagnosis Age At Onset No Information Payers Payer name Insurance type Covered green party ID Authorjaimea bhargav([place]) [place] [id number] Medicare [facility] [id number] 1 Social History Type Description Quantity Date [...]
--- OUTSIDE RECORDS SUMMARY | 2023-08-23 08:15 | XMS_ITS | Clinical Summary ---
Author Name Unknown Organization [facility] Address [place], [place] [address] Care Team Providers Care Health Care Technician Name Role Phone Casa Lucia MD Unavailable Unavailable Rudy Riddle MD Unavailable Rudy Riddle MD Primary Care Provider + Allergies Active Allergy Reactions Criticality Noted Date Comments Gabapentin Other - Describe In Comment Field Medium 08/04/2020 Dizzy, memory issue Dizzy, memory issue Morphine Itching 02/04/2010 After 3 days of use Pregabalin Anaphylaxis,Itching High 02/16/2017 swell swell Tqegzud-Fwf-Ncq Reductase Inhibitors Myalgia 02/13/2014 Medications Medication Sig Dispensed Refills Start Date End Date Status atorvastatin (LIPITOR) 20 mg tablet Take 20 mg by mouth at bedtime. 10/16/2019 Active doxepin 25 mg capsule Take 50 mg by mouth at bedtime. 10/01/2019 Active VITAMIN D2 1,250 mcg (50,000 unit) capsule Take 50,000 Units by mouth once weekly. 09/27/2019 Active nortriptyline 50 mg capsule TAKE TWO CAPSULES BY MOUTH AT BEDTIME 10/16/2019 Active pramipexole (MIRAPEX) 1 mg tablet Take 1 mg by mouth at bedtime. 10/17/2019 Active amLODIPine (NORVASC) 5 mg tablet Take 5 mg by mouth once daily. Active calcium citrate (CITRACAL) 200 mg (950 mg) tablet Take 3,800 mg by mouth at bedtime. Active carvediloL (COREG) 25 mg tablet Take 25 mg by mouth once daily. Active minocycline (MINOCIN) 100 mg tablet Take 100 mg by mouth once daily. Active sodium bicarbonate 650 mg tablet Take 650 mg by mouth two times daily. Active insulin aspart U-100 (NOVOLOG) 100 unit/mL injection USE DIRECTED WITH INSULIN PUMP. Max 32 units/day Active oxyCODONE (ROXICODONE) 5 mg immediate release tabletIndications: Acute exacerbation of chronic low back pain,Chronic back pain, unspecified back location, unspecified back pain laterality Take 5-10mg 4x/day by mouth as needed (at least 4 hrs between doses). Refills from PCP. 1 Tablet 05/13/2022 Active acetaminophen (TYLENOL EXTRA STRGTH) 500 [...] if needed for Muscle Spasm. 30 Tablet 05/13/2022 Active sennosides-docusat e (SENOKOT S) (8.6-50 [...] again. Hold for loose stools. 50 Tablet 05/13/2022 Active lisinopriL (PRINIVIL; ZESTRIL) 40 mg tabletIndications: Proteinuria, unspecified type Take 1 Tablet (40 mg) by mouth once daily. 05/14: DO NOT TAKE UNTIL FOLLOW UP WITH PRIMARY CARE DOCTOR. 0 05/14/2022 Active aspirin chewable 81 mg chewable tabletIndications: Peripheral arterial disease (HC) Chew 1 Tablet (81 mg) by mouth once daily with a meal. 90 Tablet 05/15/2022 Active DULoxetine (CYMBALTA) 30 mg Delayed-release capsuleIndications :Major depressive disorder, single episode, in remission (HC) Take 1 Capsule (30 mg) by mouth once daily. 90 Capsule 05/14/2022 Active furosemide (LASIX) 40 mg tabletIndications: Lower extremity edema Take 40 mg by mouth every morning. 0 05/14/2022 Active omeprazole (PRILOSEC) 40 mg Delayed-Release capsule Take 40 mg by mouth once daily before a meal. Active oxyCODONE (OXYCONTIN) 20 mg SUSTAINED release tablet Take 20 mg by mouth every 12 hours. Active ampicillin (OMNIPEN-N) 1 gram injectionIndicatio ns:Bacteremia due to Enterococcus,Epidu ral abscess Inject 2 g intravenous every 6 hours. via CADD pump intermittent program 0 05/28/2022 Active ferrous sulfate, 65 mg elemental, tablet Take 325 mg by mouth once daily with a meal. Active Active Problems Problem Noted Date Diagnosed [...] 5-27-14 ERX 06/21/2014 11/26/2016 Diabetic Neuropathy 01/25/2011 01/12/20 12 Diabetic gastroparesis 01/21/201001/22 Diabetic gastroparesis 01/21/201005/27 [...] Comments Blood Pressure 162/87 07/21/2022 9:21 PM MUNITIONS HANDLER Pulse 100 07/21/2022 9:21 PM MUNITIONS HANDLER Temperature 37.1 ??C (98.8 ??F) 07/21/2022 8:51 PM CS T Respiratory Rate 18 07/21/2022 8:51 PM MUNITIONS HANDLER Oxygen Saturation 96% 07/21/2022 9:21 PM MUNITIONS HANDLER Inhaled Oxygen Concentration - - Weight 83.9 kg (185 lb) 07/21/2022 5:35 PM M[employer]ITIONS HAND[employer]ER Height 175.3 cm (5' 9) 07/21/2022 5:35 PM M[employer]ITIONS HAND[employer]ER Body Mass Index 27.32 07/21/2022 5:35 PM MUNITIONS HANDLER Plan of Treatment Health Maintenance Due Date Last Done Comments Hepatitis C screening for ag e 18-79 01/30/1970 Zoster (shingles) series for age 50+ (2 of 3) 03/29/2012 02/02/2012 Medicare Wellness for age 65+ 01/30/2017 BMI (ht and wt on same day) for age 18+ 02/15/2017 02/16/2016, 07/22/2015 Depression screening for age 12+ 02/23/2017 02/24/2016, 02/16/2016, 08/19/2015, Additional history exists Lipids for age 45-75 02/15/2021 02/16/2016, 09/10/2014, 10/09/2013, Additional history exists COVID-19 vaccine series (2022- season) 2023 Influenza for age 65+ 01/15/2024 03/17/2022 , 03/24/2021, 02/20/2020, Additional history exists Tetanus booster 08/16/2026 08/16/2016, 01/2007, 03/24/2007, Additional history exists Colonoscopy through age 75 05/12/203205/12, 02/04/2006 (Completed outside of [facility]) Tdap Completed 08/16/2016 Pneumococcal series for age 65+ Completed 04/24/2018, 04/11/2017, 02/14/2012, Additional history exists Goals Goal Patient Goal Type Associated Problems Recent Progress Patient-Stated? Author BLOOD PRESSURE - MAINTAINS BP less than 140/90 Blood Pressure No Rudy Riddle MD Procedures Procedure Name Priority Date/Time Associated Diagnosis Comments COLONOSCOPY 05/12/2022 8:51 AM MUNITIONS HANDLER LIPID PANEL W REFLEX MEASURED LDL Routine 02/16/2016 8:59 AM CDT Hyperlipidemia, unspecified hyperlipidemia type from Last 3 Months or Most Recently Relevant to Health Maintenance Results * COLONOSCOPY (05/12/2022 8:51 AM MUNITIONS HANDLER) 05/12/2022 8:51 AM MUNITIONS HANDLER Narrative Transcriptions Lukas West MD - 05/12/2022 9:03 AM [facility] Patient Name: Onesimo Walton Procedure Date: 05/12/2022 Gender: Male Date of : 1950 Admit Type: Inpatient Procedure: Colonoscopy Proceduralist: Lukas West MD [facility] Indications/Pre-Op Diagnosis: Anemia. Bacteremia Medications: Monitored Anesthesia Care Procedure Description: The patient had risks, benefits and alternatives explained to andgave informed consent. The patient had a stable cardiopulmonary status and judged an adequate candidate for conscious sedation. The [id number] endoscope was passed through the anus and advanced to the cecum, identified by appendiceal orifice andileocecal valve. The colonoscopy was performed without difficulty. The patient tolerated the procedure well. The quality of the bowel preparationwas suboptimal. Complications: No immediate complications. Estimated Blood Loss & Specimen: Estimated blood loss: none. Specimen collected: None Findings: The colon (entire examined portion) appeared normal. Exam is somewhat limited due to the quality of prep. No gross lesions or large polypsare seen. Large amount of semi liquid brown stool seen particularly inthe right colon. No blood is seen. Impressions/Post-Op Diagnosis: - The entire examined colon is normal. No blood is seen. No source of bacteremia identified. Recommendation: - No further GI workup is recommended at this time. Furthermanagement is per the primary team. Call [facility] back if any questions orconcerns. Lukas West MD 05/12/2022 9:03:39 AM This report has been signed electronically. Note Initiated On: 05/12/2022 8:51 AM Lukas West MD PROCEDURE ORD * (ABNORMAL) LIPID PANEL W REFLEX MEASURED LDL (02/16/2016 8:59 AM CDT) CHOLESTEROL,TOTAL 178 100 - 199 mg/dL 02/16/2016 11:02 AM CDT [facility] TRIGLYCERIDES 232(H) <150 mg/dL 02/16/2016 11:02 AM CDT [facility] HDL CHOLESTEROL 31(L) >40 mg/dL 02/16/2016 11:02 AM CDT [facility] NON-HDL CHOLESTEROL 147(H) <145 mg/dl 02/16/2016 11:02 AM CDT [facility] CHOL/HDL RATIO 5.74(H) <4.50 02/16/2016 11:02 AM CDT [facility] LDL CHOLESTEROL 101 <=130 mg/dL 02/16/2016 11:02 AM CDT [facility] PATIENT STATUS FASTING 02/16/2016 11:02 AM CDT [facility] Blood BLOOD SPECIMEN / Unknown Venipuncture / Unknown 02/16/2016 8:59 AM CDT 02/16/2016 8:59 AM CDT Rudy Riddle MD CHEMISTRY Performing Organization Address City/State/[facility] Co de Phone Number [facility] [address] [place] [address] [facility] [address] [place] [address], [place] [phone] from Last 3 Months or Most Recently Relevant to Health Maintenance Advance Directives * Full Code (Latest Code Status on File) Date Activated Date Inactivated Comments 05/25/2022 8:45 PM 05/31/2022 3:45 PM Question Answer Comments Code Status Discussion: Reviewed Preferences * Full Code Date Activated Date Inactivated Comments 05/07/2022 7:21 AM 05/14/2022 3:45 PM Question Answer Comments Code Status Discussion: Reviewed Preferences * Full Code Date Activated Date Inactivated Comments 05/06/2022 1:42 PM 05/07/2022 7:21 AM Question Answer Comments Code Status Discussion: Unable to Assess Preferences, Provider to review later Care Teams Health Care Technician Relationship Specialty Start Date End Date Rudy Riddle MD [address] [place] [address] PCP - General Family Practice 05/25/22 Casa Lucia MD [address] [place] [address] Ophthalmology Ophthalmology Surgery 12/22/11 Rudy Riddle MD [address] [place] [address] Family Practice 05/07/22
--- OUTSIDE RECORDS SUMMARY | 2023-08-23 08:16 | XMS_ITS | Encounter Summary ---
Author Name Unknown Organization [facility] Address [address] [place] [address] Care Team Providers Care Gum Scoring Machine Operator Name Role Phone Elsewhere, Pcp Primary Care Provider Unavailabl e Encounter Details Date Type Department Care Team (Late st Contact Info) Description 08/16/2023 Documentation Division of Nephrology and Hypertension, [facility] [place] in [place], [place] [address] [place] [address] Ishan Guardado, JULIÁN, C.N.P., M.S.N. [address] [place] [address] Social History Tobacco Use Types Packs/Day Years [...] How often do you attend quaker or taoism serv ices? Never 03/24/2021 Do [...] Score 0 10/20/2018 [facility] - Occupational Stress Questionnaire Answer [...] your living situation today? I have a [facility] place to live 10/26/2022 Education Answer Date Recorded What is the highest level of school you have completed or the highest degree you have received? 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/2021 8:13 PM [employer] Gender Identity Male 08/31/2019 2:40 PM CDT Sexual Orientation Straight 08/31/2019 2: 40 PM CDT documented as of this encounter Progress Notes * Ishan Guardado APRN, C.N.P., M.S.N. - 08/16/2023 9:07 AM CDT A voice message was left for Mr. Walton to see whether he is still taking Lyrica which may potentially cause his confusion. If so, he is advised to stop taking his Lyrica. He is requested to call back Ervin Lacey if he has any questions documented in this encounter Plan of Treatment Upcoming Encounters Date Type Department Care Team (Latest Contact Info) Description 10/06/2023 10:30 AM CDT Clinical Communication Virtual Review in [place], [place] [address] [place] [address] 10/11/2023 1:30 PM CDT [facility] Visit [facility] in [place], [place] [address] [place] [phone] [place] Andrade, JULIÁN, C.N.P., M.S.N. [address] [place] [phone] documented as of this encounter Visit Diagnoses Not on filedocumented in this encounter Additional Health Concerns Assessment Noted Time PHQ-9 Depression Total Score: 3 01/04/20 18 10:38 AM CDT documented as of this encounter Care Teams Gum Scoring Machine Operator Relationship Specialty Start Date End Date Elsewhere, Pcp PCP - General Family Medicine 01/29/20 documented as of this encounter
--- OUTSIDE RECORDS SUMMARY | 2023-08-23 08:16 | XMS_ITS | Encounter Summary ---
Author Name Unknown Organization [facility] Address [address] [place] [address] Care Team Providers Care Sed Special Education Teacher Name Role Phone Elsewhere, Pcp Primary Care Provider Unavailabl e Encounter Details Date Type Department Care Team (Late st Contact Info) Description 08/16/2023 Orders Only Division of Nephrology and Hypertension, [facility], in [place], [place] [address] [place] [address] Ishan Guardado, JULIÁN, C.N.P., M.S.N. [address] [place] [address] Social History Tobacco Use Types Packs/Day Years [...] week 03/24/2021 How often do you attend religious or restorationism serv ices? Never 03/24/2021 Do you belong to any clubs o r organizations such as religious groups, unions, fraternal or athletic groups, or [...] 0 10/20/2018 [facility] - Occupational Stress Questionnaire Answer Date Recorded [...] your living situation today? I have a [facility] place [facility] live 10/26/2022 Education Answer Date Recorded What is the highest level of school you have completed or the highest degree you have received? 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/2021 8:13 PM WHARF [employer] Gender Identity Male 08/31/2019 2:40 PM CDT Sexual Orientation Straight 08/31/2019 2: 40 PM CDT documented as of this encounter Plan of Treatment Upcoming Encounters Date Type Department Care Team (Latest Contact Info) Description 10/06/2023 10:30 AM CDT Clinical Communication Virtual Review in [place], [place] [address] [place] [address] 10/11/2023 1:30 PM CDT Comprehensive Visit [facility] in [place], [place] [address] [place] [phone] Dallas Andrade, JULIÁN, C.N.P., M.S.N. [address] [place] [phone] documented as of this encounter Visit Diagnoses Not on filedocumented in this encounter Additional Health Concerns Assessment Noted Time PHQ-9 Depression Total Score: 3 01/04/20 18 10:38 AM CDT documented as of this encounter Care Teams Sed Special Education Teacher Relationship Specialty Start Date End Date Elsewhere, Pcp PCP - General Family Medicine 01/29/20 documented as of this encounter
--- OUTSIDE RECORDS SUMMARY | 2023-08-23 08:16 | XMS_ITS ---
Author Name Unknown Organization [facility] Address [address] [place] [address] Care Team Providers Care Night Patrol Inspector Name Role Phone Unavailable Unavailable Unavailable Surgery Details Not on file Complications Check Surgery Details section. Procedure Estimated Blood Loss Check Surgery Details section. Procedure Findings Check Surgery Details section. Procedure Specimens Taken Check Surgery Details section.
--- OUTSIDE RECORDS SUMMARY | 2023-08-23 08:16 | XMS_ITS | Referral Summary ---
Author Name Unknown Organization [facility] Address [address] [place] [address] Care Team Providers Care Comprehensive Ophthalmologist Name Role Phone Elsewhere, Pcp Primary Care Provider Unavailabl e Source Comments Patient records contain information from all sites at [facility]. For routine questions regarding patient records, call [phone] during business hours, M-F 8:00 AM - 5:00 PM Central Time. Record requests for emergency care only can be directed to [phone] at any time.[facility] Encounters Date Type Department Care Team Description 08/16/2023 Documentation Division of Nephrology and Hypertension, [facility], in [place], [place] [address] [place] [address] Ishan Guardado APRN, C.N.P., M.S.N. 08/16/2023 Orders Only Division of Nephrology and Hypertension, [facility], in [place], [place] [address] [place] [address] Ishan Guardado APRN, C.N.P., M.S.N. 08/15/2023 Clinical Communication Division of Nephrology and Hypertension in [place], [place] [address] [place] [address] Haseeb Menon Jr., D.OFei New Symptoms 08/09/2023 Documentation Division of Nephrology and Hypertension in [place], [place] [address] [place] [address] Haseeb Menon Jr., D.OFei 08/09/2023 Orders Only Division of Nephrology and Hypertension in [place], [place] [address] [place] [address] Haseeb Menon Jr., D.O. 06/17/2023 Orders Only Division of Nephrology and Hypertension in [place], [place] [address] [place] [address] Haseeb Menon Jr. D.O. from Last 3 Months Allergies Active Allergy Reactions Criticality Noted Date Comments Gabapentin Other (see comments) Medium 08/04/2020 Dizzy, memory issue Morphine Itching,Rash Medium 02/14/2012 itchy Pregabalin Anaphylaxis High 02/16/2017 swell Rauyhjo-Wnz-Bxu Reductase Inhibitors Myalgia Low 02/13/2014 Medications Medication [...] by mouth at bedtime. 0 Active lisinopriL (PRINIVIL,ZESTRIL ) 40 mg tablet Take 0.5 tablets (20 [...] TAKE ONE CAPSULE BY MOUTH EVERY DAY OFFICE ENGINEER 0 01/14/2022 Active allopurinoL (ZYLOPRIM) 100 mg tablet Take 100 mg by mouth daily. 0 Active sodium bicarbonate 650 mg tabletIndications :Hypertension And Chronic Kidney Disease Stage 4 (HCC) DISSOLVE AND TAKE ONE TABLET BY MOUTH TWICE A DAY 180 tablet 3 02/01/2023 [address] aspirin [address] tablet Take 81 mg by mouth daily. 0 Active ergocalciferol (Vitamin D2) 50,000 Unit capsule Take 50,000 Units by mouth once a week. 0 Active oxyCODONE (ROXICODONE) 5 mg immediate release tabletIndications :Acute Pain Exception Take 1 tablet (5 mg [...] AT BEDTIME 300 tablet 3 03/14/2023 Active sennosides-docusa te sodium (SENOKOT-S) 8.6-50 mg per tablet Take 1 tablet by mouth 2 (two) times a day. 180 tablet 3 03/21/2023 4 Active furosemide (LASIX) 80 mg tablet Take 2 tablets (160 mg total) by mouth 2 (two) times a day. 360 tablet 3 04/26/2023 Active calcium acetate,phosphat bind, (PHOSLO) 667 mg (169 mg calcium) capsule Take 2 capsules (1,334 mg total) by mouth 3 (three) times a day with meals. 540 capsule 3 06/17/2023 5 Active amLODIPine (NORVASC) 5 mg tablet Take 1 tablet (5 mg total) by mouth daily. 90 tablet 3 07/05/2022 4 Discontinue d(Error) Active Problems Patient Care Coordination No te [...] 04/21/2018 Restless Leg Syndrome 01/12/2018 Atherosclerosis Of [place] Ar 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 08/08/2017 Hyperlipidemia 07/22/2017 Ulcer Leg Left 04/19/2017 Ulcer Toe Left 04/19/2017 Atherosclerosis Of [place] Ar teries Of Left Leg With Ulceration Of Unspecified Site 04/19/2017 Peripheral Arterial Disease 02/16/2017 Hypertension NOS 02/16/2017 Hypertension And Chronic Kidney Disease Stage 4 09/23/2016 Overview: Hypertension (HTN) And CKD Stage 1-4 Retirement Use Of Insulin Active 09/23/2016 Overview: Ventilating Engineer Use Of Insulin Active Depression Major [...] How often do you attend scientology or restoration serv ices? 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/2021 8:13 PM PENSIONS RETIREMENT PLAN SPECIALIST Gender Identity Male 08/31/2019 2:40 PM [...] 03/03/2023 12:53 PM CDT Plan of Treatment Upcoming Encounters Date Type Department Care Team (Latest Contact Info) Description 10/06/2023 10:30 AM CDT Clinical Communication Virtual Review in [place], [place] [address] [place] [address] 10/11/2023 1:30 PM CDT Comprehensive Visit [facility] in [place], [place] [address] [place] [phone] Dallas Andrade, JULIÁN, C.N.P., M.S.N. [address] [place] [phone] Medical Devices Implanted Type Area Clean Room Technician Device Identifier Shelf Expiration Date Model / Serial / Lot Patch Vasc Bovine.08cm X 8cm - Flores [id number] Implanted:Qty: 1 on 04/04/2017 Mesh or Patch Other/Legacy - See Implant Description Synovis Description:Device Manufactu rer - Synovis. Body Location - Other. Vascular. Device Status Text - [id number]. Ocular Lens-10/29/2007 Implanted:10/28 by Nato Dougherty APRN, C.N.P., R.N. (Quantity not on file) Ocular Lens Bilateral: Eye Description:Cataract extract ion and insertion of intraocular lens 06/22/2016 09:27 - NATO DOUGHERTY VAULT CASHIER RESIDENTIAL PROPERTY TAX APPRAISER bilateral Conversions - Default Historical Implant Device Implanted:03/04 (Quantity not on file) Ocular Lens Right: Eye Description:Body Location - Eye R. Eye L. Eye R. Device Status Text - OculrLens. Conversions - Default Historical Implant Device Implanted:05/27 (Quantity not on file) Ocular Lens Left: Eye Description:Body Location - Eye L. Device Status Text - OculrLens. Stent Vbx 6mm X 29mm X 135cm - Flores [id number] Implanted:Qty: 1 on 03/04/2017 Vascular Graft Davis Description:Device Manufactu rer - Davis Medical. Device Status Text - [id number]. Stent Vbx [id number] - Flores [id number] Implanted:Qty: 1 on 03/04/2017 Vascular Graft Other/Legacy - See Implant Description Davis Description:Device Manufactu rer - [employer] Davis [employer] Body Location - Other. n/a. Device Status Text - [id number]. Stent Vbx [id number] - Flores [id number] Implanted:Qty: 1 on 03/04/2017 Vascular Graft Other/Legacy - See Implant Description Davis Description:Device Manufactu rer - [employer] Davis [employer] Body Location - Other. n/a. Device Status Text - [id number]. Stent Zilver Ptx 6mm X 40mm - Flores [id number] Implanted:Qty: 1 on 04/04/2017 Vascular Stent Other/Legacy - See Implant Description [employer] Description:Device Manufactu rer - [employer] [place]. Body Location - Other. Left. Device Status Text - [id number]. Stent Zilver Ptx 6mm X 60mm - Flores [id number] Implanted:Qty: 1 on 04/04/2017 Vascular Stent Other/Legacy - See Implant Description Cook [employer] Inc. Description:Device Manufactu rer - Cook [employer]. Body Location - Other. Left. Device Status Text - [id number]. Stent Zilver Ptx 6mm X 80mm - Flores [id number] Implanted:Qty: 1 on 08/31/2017 Vascular Stent Right: Other/Legacy - See Implant Description Cook [employer] Inc. / [id number] / Description:Device Manufactu rer - [employer]. Body Location - Right. Device Status Text - [id number]. Stent Zilver Ptx 6mm X 40mm - Flores [id number] Implanted:Qty: 1 on 08/31/2017 Vascular Stent Right: Other/Legacy - See Implant Description [employer] Inc. / [id number] / Description:Device Manufactu rer - [employer]. Body Location - Right. Device Status Text - [id number]. Stnt Innova Otw [id number] - [id number] Implanted:Qty: 1 on 04/18/2018 by Kemar Velásquez M.B.B.S. at [facility] Vascular Stent I[employer] 05/23/2020 [id number] / / [id number] Stnt Innova Otw [id number] - [id number] Implanted:Qty: 1 on 05/11/2019 by Kemar Velásquez M.B.B.S. at [facility] Vascular Stent Left: Leg [employer] 09/05/2020 [id number] / / [id number] Advance Directives For more information, please contact: [phone] * Full Code (Latest Code Status on File) Date Activated Date Inactivated Comments 02/16/2023 7:32 AM 02/16/2023 8:15 PM Question Answer Comments Full Code: Discussed * Full Code Date Activated Date Inactivated Comments 05/08/2020 11:37 AM 05/10/2020 4:58 PM Question Answer Comments Full Code: Discussed * Full Code Date Activated Date Inactivated Comments 05/11/2019 10:07 AM 05/11/2019 10:49 PM Question Answer Comments Full Code: Discussed * Full Code Date Activated Date Inactivated Comments 04/18/2018 4:43 PM 04/18/2018 10:04 PM Question Answer Comments Full Code: Discussed * Full Code Date Activated Date Inactivated Comments 04/18/2018 9:08 AM 04/18/2018 4:42 PM Question Answer Comments Full Code: Discussed Care Teams Comprehensive Ophthalmologist Relationship Specialty Start Date End Date Elsewhere, Pcp PCP - General Family Medicine 01/29/20
--- OUTSIDE RECORDS SUMMARY | 2023-08-23 08:16 | XMS_ITS | Clinical Summary ---
Author Name Unknown Organization [facility] Address [address] [place] [address] Care Team Providers Care Loss Prevention Officer Name Role Phone Elsewhere, Pcp Primary Care Provider Unavailabl e Source Comments Patient records contain information from all sites at [facility]. For routine questions regarding patient records, call [phone] during business hours, M-F 8:00 AM - 5:00 PM Central Time. 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 01/14/2022 Active allopurinoL (ZYLOPRIM) 100 mg [...] 04/21/2018 Restless Leg Syndrome 01/12/2018 Atherosclerosis Of [place] Ar 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 08/08/2017 Hyperlipidemia 07/22/2017 Ulcer Leg Left 04/19/2017 Ulcer Toe Left 04/19/2017 Atherosclerosis Of [place] Ar teries Of Left Leg With Ulceration Of Unspecified Site 04/19/2017 Peripheral Arterial Disease 02/16/2017 Hypertension NOS 02/16/2017 Hypertension And Chronic Kidney Disease Stage 4 09/23/2016 Overview: Hypertension (HTN) And CKD Stage 1-4 Penitentiary Use Of Insulin Active 09/23/2016 Overview: Penitentiary Use Of Insulin Active Depression Major Recurrent Moderate 06/22/2016 Overview: Depression Major Recurrent Moderate Diabetes Mellitus Type 2 Wit h Other Circulatory Complication 06/22/2016 Overview: DM2 Peripheral Neuropathy Uncontrolled Diagnosis Maintenance Updates May 2023 Encounters Date Type Department Care Team Description 08/16/2023 Documentation Division of Nephrology and Hypertension, [facility], in [place], [place] [address] [place] [phone] Ishan Guardado APRN C.N.P., M.S.N. 08/16/2023 Orders Only Division of Nephrology and Hypertension, [facility], in [place], [place] [address] [place] [phone] Ishan Guardado APRN C.N.P., M.S.N. 08/15/2023 Clinical Communication Division of Nephrology and Hypertension in [place], [place] [address] [place] [phone] Haseeb Menon Jr., D.O. New Symptoms 08/09/2023 Documentation Division of Nephrology and Hypertension in [place], [place] [address] [place] [phone] Haseeb Menon Jr., D.O. 08/09/2023 Orders Only Division of Nephrology and Hypertension in [place], [place] [address] [place] [phone] Haseeb Menon Jr., D.O. 06/17/2023 Orders Only Division of Nephrology and Hypertension in [place], [place] [address] [place] [phone] Haseeb Menon Jr., D.O. from Last 3 [...] How often do you attend mandaen or nondenominational serv ices? 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 [address] [place] [address] Health Maintenance Due Date Last Done Comments [...] history exists Medical Devices Implanted Type Area Mechanic/Welder Device Identifier Shelf Expiration Date Model / Serial / Lot Patch Vasc Bovine.08cm X 8cm - Flores [id number] Implanted:Qty: 1 on 04/04/2017 Mesh or Patch Other/Legacy - See Implant Description Synovis Description:Device Manufactu rer - Synovi. Body Location - Other. Vascular. Device Status Text - [id number]. Ocular Lens-10/29/2007 Implanted:10/28 by Nato Dougherty APRN, C.N.P., R.N. (Quantity not on file) Ocular Lens Bilateral: Eye Description:Cataract extract ion and insertion of intraocular lens 06/22/2016 09:27 - NATO DOUGHERTY FINAL ARMATURE TESTER DIE MAKER BENCH STAMPING bilateral Conversions - Default Historical Implant Device [...] 6mm X 29mm X 135cm - Flores [id number] Implanted:Qty: 1 on 03/04/2017 Vascular Graft [place] Description:Device Manufactu rer - [employer]. Device Status Text - [id number]. Stent Vbx [id number] - Flores [id number] Implanted:Qty: 1 on 03/04/2017 Vascular Graft Other/Legacy - See Implant Description [place] Description:Device Manufactu rer - [employer] [place] [employer] Body Location - Other. n/a. Device Status Text - [id number]. Stent Vbx [id number] - Flores [id number] Implanted:Qty: 1 on 03/04/2017 Vascular Graft Other/Legacy - See Implant Description [place] Description:Device Manufactu rer - W [employer] [place] [employer] Body Location - Other. n/a. Device Status Text - [id number]. Stent Zilver Ptx 6mm X 40mm - Flores [id number] Implanted:Qty: 1 on 04/04/2017 Vascular Stent Other/Legacy - See Implant Description Cook Medical Inc. Description:Device Manufactu rer - [employer]. Body Location - Other. Left. Device Status Text - [id number]. Stent Zilver Ptx 6mm X 60mm - Flores [id number] Implanted:Qty: 1 on 04/04/2017 Vascular Stent Other/Legacy - See Implant Description Cook [employer] Inc. Description:Device Manufactu rer - [employer]. Body Location - Other. Left. Device Status Text - [id number]. Stent Zilver Ptx 6mm X 80mm - Flores [id number] Implanted:Qty: 1 on 08/31/2017 Vascular Stent Right: Other/Legacy - See Implant Description Cook [employer] Inc. / [id number] / Description:Device Manufactu rer - [employer]. Body Location - Right. Device Status Text - [id number]. Stent Zilver Ptx 6mm X 40mm - Flores [id number] Implanted:Qty: 1 on 08/31/2017 Vascular Stent Right: Other/Legacy - See Implant Description Cook [employer] Inc. / [id number] / Description:Device Manufactu rer - [employer] Medical. Body Location - Right. Device Status Text - [id number]. [facility] Innova Otw [id number] - [id number] Implanted:Qty: 1 on 04/18/2018 by Kemar Velásquez M.B.B.S. at [facility] Vascular Stent D[employer]aur [employer] 05/23/2020 [id number] / / [id number] [facility] Madi Otw [id number] - [id number] Implanted:Qty: 1 on 05/11/2019 by Kemar Velásquez M.B.B.S. at [facility] Vascular Stent Left: Leg D[employer] 09/05/2020 [id number] / / [id number] Advance Directives For more information, please contact: [phone] * Full Code (Latest Code Status on [...] Answer Comments Full Code: Discussed Care Teams Loss Prevention Officer Relationship Specialty Start Date End Date Elsewhere, Pcp PCP - General Family Medicine 01/29/20
--- OUTSIDE RECORDS SUMMARY | 2023-08-23 08:16 | XMS_ITS | Encounter Summary ---
Author Name Unknown Organization [facility] Address [address] [place] [address] Care Team Providers Care Copyholder Name Role Phone Elsewhere, Pcp Primary Care Provider Unavailabl e Reason for Visit * Reason Onset Date Comments New Symptoms 08/15/2023 Encounter Details Date Type Department Care Team (Latest Contact Info) Description 08/15/2023 Clinical Communication Division of Nephrology and Hypertension in [place], [place] [address] [place] [address] Haseeb Menon Jr., D.O. [address] [place] [address] New Symptoms Social History Tobacco Use Types Packs/Day Years [...] How often do you attend adventist or jainism serv ices? Never 03/24/2021 Do [...] Answer Date Recorded PHQ-2 Score 0 10/20/2018 [facility]ational [facility] Questionnaire Answer [...] living situation today? I have a [facility] place to live 10/26/2022 Education Answer Date Recorded What is the highest level of school you have completed or the highest degree you have received? 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 - 08/15/2023 3:20 PM CDT SUBJECTIVE CHIEF COMPLAINT / REASON FOR CALL New Symptoms ASSESSMENT Siria explains that Paolo started Lyrica 75 mg on 08/12/23. He took 75 mg on 08/11, and then started his 75 mg twice daily dosing, as prescribed, on 08/12. Since then, he has been having significant swelling, noticeable around his eyes, wrists, and ankles. Siria also notes that he is having some confusion/ difficulty functioning, though it sounds as though Paolo's mental status has been waxing/ waning for some time, as he was recently in the local ER for dizziness, headache, and confusion on 07/28. Siria describes an episode on 08/08 (the same day the Frijose alfredomaría visited with Dr. Menon), during which she dropped Paolo off at the wound clinic for his wound care. He was able to walk right in on his own, while she parked the car, and was very lucid. By the time his wound care was completed, his blood pressure was 84/52, and he could not stand up. Of note, this episode was prior to his starting Lyrica. PLAN Reviewed that it would be best to discuss the concerns with Lyrica with their PCP who prescribed it. Siria is in agreement with this, but their PCP is away from the office this week. Siria is especially eager to know if it is ok for Paolo to stop the Lyrica abruptly. Will verify with our pharmacist what the recommended dose for Lyrica for a PD patient would be, andverify if it is ok for Paolo to stop the Lyrica all at once. Disposition/Recommendation: I spoke with Uriel, Pharmacist, in our [facility]. Per his medication database, a Peritoneal Dialysis patient should start Lyrica at a dose of 25 mg once daily. Then, based on symptoms, it could be gradually uptitrated to a maximum dose of 75 mg once daily . Reviewed with Uriel if it would be ok for Paolo to stop Lyrica abruptly, having just taken 6 doses total. Uriel noted that since Paolo has been on the medication for such a short time, and is likely clearing it more slowly due to Peritoneal Dialysis status, it should be ok for him to discontinue it at this time. He took one dose today, and could withhold his evening dose tonight, and then take none tomorrow. Called Siria back and discussed the information provided by Uriel, Pharmacist noted above, regardingLyrica dosing for PD patients, and discontinuation of Lyrica. Discussed that it may be simplest andsafest for Paolo to discontinue the Lyrica for the time being and then review with his PCP whether re-starting at a dose of 25 mg/ day would be advisable, once his PCP returns to the clinic. Will review all of the above with Dr. Menon. If he has any additional recommendations, will callthe Rosendo back at that time. Information/Education: patient/caller able to teach back. Caller agreeable to plan of care: yes. The following references were used: other [facility] Pharmacist . * Telephone Encounter - Chloe Lazo - 08/15/2023 10:43 AM CDT Caller is: : Authorization YES Preferred Communication Method: [phone] Reason for call: Pt's , Siria, called worried about new symptoms he is experiencing. Pt's PCP put him on Lyrica 75mg BID for pain, which he started on 08/11. He has since started to swell up badly all over - in face, wrists, ankles, ect. and it is still continuing to swell. He is also experiencing confusion, which Siria is very concerned about, since about 07/28 when she took him to the local ED for eval for the confusion. Pt is still taking the Lyrica, but wants to know if he should stop. They prefer to becalled back at the phone number listed above. documented in this encounter Plan of Treatment Upcoming Encounters Date Type Department Care Team (Latest Contact Info) Description 10/06/2023 10:30 AM CDT Clinical Communication Virtual Review in [place], [place] [address] [place] [address] 10/11/2023 1:30 PM CDT Comprehensive Visit [facility] in [place], [place] [address] [place] [phone] Dallas Andrade, JULIÁN, C.N.P., M.S.N. [address] [place] [phone] documented as of this encounter Visit Diagnoses Not on filedocumented in this encounter Additional Health Concerns Assessment Noted Time PHQ-9 Depression Total Score: 3 01/04/20 18 10:38 AM CDT documented as of this encounter Care Teams Copyholder Relationship Specialty Start Date End Date Elsewhere, Pcp PCP - General Family Medicine 01/29/20 documented as of this encounter
--- OUTSIDE RECORDS SUMMARY | 2023-08-23 08:16 | XMS_ITS | Encounter Summary ---
Author Name Unknown Organization [facility] Address [address] [place] [address] Care Team Providers Care Recruiting Assistant Name Role Phone Elsewhere, Pcp Primary Care Provider Unavailabl e Encounter Details Date Type Department Care Team (Late st Contact Info) Description 06/17/2023 Orders Only Division of Nephrology and Hypertension in [place], [place] [address] [place] [address] Haseeb Menon Jr., D.O. [address] [place] [address] Social History Tobacco Use Types Packs/Day Years [...] How often do you attend hindu or muslim serv ices? Never 03/24/2021 Do [...] your living situation today? I have a [facility] place to live 10/26/2022 Education Answer Date Recorded What is the highest level of school you have completed or the highest degree you have received? 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 [address] [place] [phone] documented as of this encounter Visit Diagnoses Not on filedocumented in this encounter Additional Health Concerns Assessment Noted Time PHQ-9 Depression Total Score: 3 01/04/20 18 10:38 AM CDT documented as of this encounter Care Teams Recruiting Assistant Relationship Specialty Start Date End Date Elsewhere, Pcp PCP - General Family Medicine 01/29/20 documented as of this encounter
--- OUTSIDE RECORDS SUMMARY | 2023-08-23 08:16 | XMS_ITS | Encounter Summary ---
Author Name Unknown Organization [facility] Address [address] [place] [address] Care Team Providers Care Grocery Stocker Name Role Phone Elsewhere, Pcp Primary Care Provider Unavailabl e Encounter Details Date Type Department Care Team (Late st Contact Info) Description 08/09/2023 Orders Only Division of Nephrology and Hypertension in [place], [place] [address] [place] [address] Haseeb Menon Jr., D.O. 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 [address] [place] [phone] documented as of this encounter Visit Diagnoses Not on filedocumented in this encounter Additional Health Concerns Assessment Noted Time PHQ-9 Depression Total Score: 3 01/04/20 18 10:38 AM CDT documented as of this encounter Care Teams Grocery Stocker Relationship Specialty Start Date End Date Elsewhere, Pcp PCP - General Family Medicine 01/29/20 documented as of this encounter
--- OUTSIDE RECORDS SUMMARY | 2023-08-23 08:16 | XMS_ITS | Encounter Summary ---
Author Name Unknown Organization [facility] Address [address] [place] [address] Care Team Providers Care Athletic Gear Custodian Name Role Phone Elsewhere, Pcp Primary Care Provider Unavailpaola e Encounter Details Date Type Department Care Team (Late st Contact Info) Description 08/19/2016 Historical Ophthalmology [facility] Chalo Holland Jr., M.D. 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 [address] [place] [phone] documented as of this encounter Visit Diagnoses Not on filedocumented in this encounter Additional Health Concerns Infection Onset Date Last Indicated Resolved Time COVID19 Pending 05/08/2020 05/08/2020 05/08/2020 2 :44 PM COMMUNITY RELATIONS SPECIALIST Assessment Noted Time PHQ-9 Depression Total Score: 7 08/17/19 17 9:01 AM CDT documented as of this encounter Care Teams Athletic Gear Custodian Relationship Specialty Start Date End Date Elsewhere, Pcp PCP - General Family Medicine 01/29/20 documented as of this encounter
--- OUTSIDE RECORDS SUMMARY | 2023-08-23 08:16 | XMS_ITS | Encounter Summary ---
Author Name Unknown Organization [facility] Address [address] [place] [address] Care Team Providers Care Hauling Contractor Name Role Phone Elsewhere, Pcp Primary Care Provider Unavailabl e Encounter Details Date Type Department Care Team (Late st Contact Info) Description 08/09/2023 Documentation Division of Nephrology and Hypertension in [place], [place] [address] [place] [address] Haseeb Menon Jr., D.O. [address] [place] [address] Social History Tobacco Use Types Packs/Day Years [...] How often do you attend pentecostal or buddhism serv ices? Never 03/24/2021 Do [...] living situation today? I have a [facility] place to live 10/26/2022 Education Answer Date Recorded What is the highest level of school you have completed or the highest degree you have received? 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 - 08/09/2023 3:25 PM CDT Care coordination-home dialysis clinic note Please see the [facility] sure scripts and Care everywhere note from today's comprehensive visit. is situation has become quite complex. There was quite a bit of frustration evident with his being quite concerned that he has not able to do what he needs to keep himself safe. Specifically, more recently he has been having episodes of hypotension and hypoglycemia. These episodes are occurring more frequently, and lead to frustrating situations where he can be confused and disoriented then within 2 hours be able to diagnose complex engineering problems. Not had chest pain he has not had shortness of breath, he states his appetite is fine, his relates that this is perhaps not true. He has been having very frequent hypoglycemic events, has an insulin pump and sensor, this will need to be reprogrammed and we discussed this today. He is getting very frequent hypoglycemic events atnight. He has seated hypertension, and in the right upper extremity blood pressures in the 130s and 150s systolic. However when he stands his blood pressure is undetectable at times, and certainly below 80. His has taken him to the emergency room on several occasions, and he has been diagnosed with hypotension. We reviewed his adequacy, which seems acceptable, he has been reaching his target weight and does not have lower extremity edema, PND or orthopnea. He has not had challenges with provision of therapy in his machine has not been malfunctioning. He is a full code. His would be his decisionmaker if he were unable. We did a care plan at hischair side today, reviewing his entire situation. He has not a transplant candidate on the background of his multiple medical complications. We also had a very pedro discussion today regards end of life issues, and making plans with respectto what sort of intervention would be acceptable and what brings meaning to his life. He will be visiting with his primary care physician later today, with whom he has appropriately placed lawrence. documented in this encounter Plan of Treatment Upcoming Encounters Date Type Department Care Team (Latest Contact Info) Description 10/06/2023 10:30 AM CDT Clinical Communication Virtual Review in [place], [place] 200 [place] [address] 10/11/2023 1:30 PM CDT Comprehensive Visit [facility] in [address] [phone] [place] Andrade, JULIÁN, C.N.P., M.S.N. [address] [place] [phone] documented as of this encounter Visit Diagnoses Not on filedocumented in this encounter Additional Health Concerns Assessment Noted Time PHQ-9 Depression Total Score: 3 01/04/20 18 10:38 AM CDT documented as of this encounter Care Teams Hauling Contractor Relationship Specialty Start Date End Date Elsewhere, Pcp PCP - General Family Medicine 01/29/20 documented as of this encounter
== END 2023-08-23 08:13 | disposition home or self-care (01) ==
LOC: WOUND 08:12
PROVIDERS: PCP Family Medicine; Visit Provider Nurse Practitioner Family
DX: E11.621 Type 2 diabetes mellitus with foot ulcer (principal); L97.518 Non-pressure chronic ulcer of other part of right foot with other specified severity; I89.0 Lymphedema, not elsewhere classified; Z96.41 Presence of insulin pump (external) (internal); E11.22 Type 2 diabetes mellitus with diabetic chronic kidney disease; N18.5 Chronic kidney disease, stage 5
CPT/HCPCS: 11042

== ENCOUNTER 2023-08-30 09:29 | Outpatient (CLI) | payer MEDICARE, BC, SELFPAY ==
--- OUTSIDE RECORDS SUMMARY | 2023-08-30 09:32 | XMS_ITS | Clinical Summary ---
Author Name Unknown Organization [employer] [facility] Address [place], [place] [address] Care Team Providers Care Captain Of Guards Name Role Phone Casa Lucia MD Unavailable Unavailable Rudy Riddle MD Unavailable [phone] Rudy Riddle MD Primary Care Provider + Allergies Active Allergy Reactions Criticality Noted Date Comments Gabapentin Other - Describe In Comment Field Medium 08/04/2020 Dizzy, memory issue Dizzy, memory issue Morphine Itching 02/04/2010 After 3 days of use Pregabalin Anaphylaxis,Itching High 02/16/2017 swell swell Vfqurbj-Pxt-Qik Reductase Inhibitors Myalgia 02/13/2014 Medications Medication Sig [...] Comments Blood Pressure 162/87 07/21/2022 9:21 PM ANNEALING TORCH OPERATOR Pulse 100 07/21/2022 9:21 PM ANNEALING TORCH OPERATOR Temperature 37.1 ??C (98.8 ??F) 07/21/2022 8:51 PM CS T Respiratory Rate 18 07/21/2022 8:51 PM ANNEALING TORCH OPERATOR Oxygen Saturation 96% 07/21/2022 9:21 PM ANNEALING TORCH OPERATOR Inhaled Oxygen Concentration - - Weight 83.9 kg (185 lb) 07/21/2022 5:35 PM ANNEALING TORCH OPERATOR Height 175.3 cm (5' 9) 07/21/2022 5:35 PM ANNEALING TORCH OPERATOR Body Mass Index 27.32 07/21/2022 5:35 PM ANNEALING TORCH OPERATOR Plan of Treatment Health Maintenance Due Date [...] age 77 05/12/203205/12, 02/04/2006 (Completed outside of [facility]) Tdap Completed 08/16/2016 Pneumococcal series for age 65+ Completed 04/24/2018, 04/11/2017, 02/14/2012, Additional history exists Goals Goal Patient Goal Type Associated Problems Recent Progress Patient-Stated? Author BLOOD PRESSURE - MAINTAINS BP less than 140/90 Blood Pressure No Rudy Riddle MD Procedures Procedure Name Priority Date/Time Associated Diagnosis Comments COLONOSCOPY 05/12/2022 8:51 AM ANNEALING TORCH OPERATOR LIPID PANEL W REFLEX MEASURED LDL Routine 02/16/2016 8:59 AM CDT Hyperlipidemia, unspecified hyperlipidemia type from Last 3 Months or Most Recently Relevant to Health Maintenance Results * COLONOSCOPY (05/12/2022 8:51 AM ANNEALING TORCH OPERATOR) 05/12/2022 8:51 AM ANNEALING TORCH OPERATOR Narrative Transcriptions Lukas West MD - 05/12/2022 9:03 AM [facility] Patient Name: Onesimo Walton Procedure Date: 05/12/2022 Gender: Male Date of : 1950 Admit Type: Inpatient Procedure: Colonoscopy Proceduralist: Lukas West MD [facility] Indications/Pre-Op Diagnosis: Anemia. Bacteremia Medications: Monitored Anesthesia Care Procedure Description: The patient had risks, benefits and alternatives explained to andgave informed consent. The patient had a stable cardiopulmonary status and judged an adequate candidate for conscious sedation. The [facility][id number] endoscope was passed through the anus and [...] Furthermanagement is per the primary team. Call [facility] back if any questions orconcerns. Lukas West MD 05/12/2022 9:03:39 AM This report has been signed electronically. Note Initiated On: 05/12/2022 8:51 AM Lukas West MD PROCEDURE ORD * (ABNORMAL) LIPID PANEL W REFLEX MEASURED LDL (02/16/2016 8:59 AM CDT) CHOLESTEROL,TOTAL 178 100 - 199 mg/dL 02/16/2016 11:02 AM CDT [facility] TRIGLYCERIDES 232(H) <150 mg/dL 02/16/2016 11:02 AM CDT [facility] HDL CHOLESTEROL 31(L) >40 mg/dL 02/16/2016 11:02 AM CDT [facility] NON-HDL CHOLESTEROL 147(H) <145 mg/dl 02/16/2016 11:02 AM CDT [facility] CHOL/HDL RATIO 5.74(H) <4.50 02/16/2016 11:02 AM CDT [facility] LDL CHOLESTEROL 101 <=130 mg/dL 02/16/2016 11:02 AM CDT [facility] PATIENT STATUS FASTING 02/16/2016 11:02 AM CDT [facility] Blood BLOOD SPECIMEN / Unknown Venipuncture / Unknown 02/16/2016 8:59 AM CDT 02/16/2016 8:59 AM CDT Rudy Riddle MD CHEMISTRY Performing Organization Address City/State/[facility] Co de Phone Number [facility] [address] [place] [address] [facility] [address] [place] [address], [place] [phone] from Last 3 Months or Most Recently [...] Preferences, Provider to review later Care Teams Captain Of Guards Relationship Specialty Start Date End Date Rudy Riddle MD [address] [place] [address] PCP - General Family Practice 05/25/22 Casa Lucia MD [address] [place] [address] Ophthalmology Ophthalmology Surgery 12/22/11 Rudy Riddle MD [address] [place] [address] Family Practice 05/07/22
--- OUTSIDE RECORDS SUMMARY | 2023-08-30 09:32 | XMS_ITS | Encounter Summary ---
Author Name Unknown Organization [facility] Address [address] [place] [address] Care Team Providers Care Knitter Hand Name Role Phone Elsewhere, Pcp Primary Care Provider Unavailabl e Encounter Details Date Type Department Care Team (Late st Contact Info) Description 08/16/2023 Documentation Division of Nephrology and Hypertension, [facility], in [place], [place] [address] [place] [phone] Ishan Guardado, JULIÁN, C.N.P., M.S.N. [address] [place] [phone] Social History Tobacco Use Types Packs/Day Years Used Date Smoking Tobacco: Former Cigarettes 1 38.9 0 05/16/1983 - 04/2022 Smokeless Tobacco: Never [...] How often do you attend sabianism or voodoo serv ices? 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/2021 8:13 PM MUD JACK NOZZLEMAN Gender Identity Male 08/31/2019 2:40 PM CDT [...] AM CDT Clinical Communication Virtual Review in [place], [place] [address] [place] [address] 10/11/2023 1:30 PM CDT Comprehensive Visit [facility] in [place], [place] [address] [place] [phone] [place] Andrade APRN, C.N.P., M.S.N. [address] [place] [phone] documented as of this encounter Visit Diagnoses Not on filedocumented in this encounter Additional Health Concerns Assessment Noted Time PHQ-9 Depression Total Score: 3 01/04/20 18 10:38 AM CDT documented as of this encounter Care Teams Knitter Hand Relationship Specialty Start Date End Date Elsewhere, Pcp PCP - General Family Medicine 01/29/20 documented as of this encounter
--- OUTSIDE RECORDS SUMMARY | 2023-08-30 09:32 | XMS_ITS | Clinical Summary ---
Author Name Unknown Organization [facility] Address [address] [place] [address] Care Team Providers Care Lead Producer Name Role Phone Elsewhere, Pcp Primary Care Provider Unavailabl e Source Comments Patient records contain information from all sites at [facility]. For routine questions regarding patient records, call [phone] during business hours, M-F 8:00 AM - 5:00 PM Central Time. Record requests for emergency care only can be directed to [phone] at any time.[facility] Allergies Active Allergy Reactions Criticality Noted Date Comments Gabapentin Other (see comments) Medium 08/04/2020 Dizzy, memory issue Morphine Itching,Rash Medium 02/14/2012 itchy Pregabalin Anaphylaxis High 02/16/2017 swell Yaoggko-Vtv-Xpn Reductase Inhibitors Myalgia Low 02/13/2014 Medications Medication Sig Dispensed Refills Start Date End Date Status DULoxetine (CYMBALTA) [address] capsule Take 60 mg by mouth at bedtime. 08/16/2016 Active nortriptyline (PAMELOR) 50 mg capsule Take 100 mg by mouth at bedtime. 5 12/06/2017 Active omeprazole (PriLOSEC) [address] capsule Take 40 mg by mouth every evening. 09/25/2015 Active ferrous sulfate 325 mg (65 mg iron) tablet Take 27 mg by mouth daily. States taking 27 mg daily Active atorvastatin (LIPITOR) 20 mg tablet Take 1 tablet (20 mg total) by mouth at bedtime. 90 tablet 3 07/25/2019 Active pramipexole (MIRAPEX) 0.5 mg tablet Take 0.5 mg by mouth at bedtime. Active lisinopriL (PRINIVIL,ZESTRIL ) 40 mg tablet Take 0.5 tablets (20 mg total) by mouth daily. Patient reports it was decreased by primary physician about 04/2020 per patient report. 03/25/2021 Active Additional Information Patient taking differently: 40 mgoral Daily, Patient reports it was decreased by primary physician about 04/2020 per patient report., Reported on 03/03/2023 carvediloL (COREG) 25 mg tablet Take 2 tablets (50 mg total) by mouth 2 (two) times a day with meals. 03/25/2021 Active acetaminophen (TYLENOL) 500 mg tablet Take 2 tablets (1,000 mg total) by mouth every 8 (eight) hours as needed (neuropathy). 03/25/2021 Active doxepin (SINEquan) 10 mg capsule TAKE ONE CAPSULE BY MOUTH EVERY DAY AT BEDTIME 90 capsule 3 05/28/2021 Active minocycline (MINOCIN,DYNACIN) 100 mg capsule TAKE ONE CAPSULE BY MOUTH TWICE A DAY FOR 10 DAYS AND THEN TAKE ONE CAPSULE BY MOUTH EVERY DAY DIE TRIMMER 01/14/2022 Active allopurinoL (ZYLOPRIM) 100 mg tablet Take 100 mg by mouth daily. Active sodium bicarbonate 650 mg tabletIndications :Hypertension And Chronic Kidney Disease Stage 4 (HCC) DISSOLVE AND TAKE ONE TABLET BY MOUTH TWICE A DAY 180 tablet 3 02/01/2023 [address] Active aspirin [address] tablet Take 81 mg by mouth daily. Active ergocalciferol (Vitamin D2) 50,000 Unit capsule Take 50,000 Units by mouth once a week. Active oxyCODONE (ROXICODONE) 5 mg immediate release tabletIndications :Acute Pain Exception Take 1 tablet (5 mg total) by mouth every 6 (six) hours as needed for severe pain or score 7-10 of 10 Indication: Acute Pain Exception. for pain 6 tablet 02/16/2023 Active blood-glucose sensor device 11/25/2021 Active UNABLE TO FIND Insulin pump Active calcium citrate (CALCITRATE) 950 mg (200 [...] 04/21/2018 Restless Leg Syndrome 01/12/2018 Atherosclerosis Of Tribal Ar 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 08/08/2017 Hyperlipidemia 07/22/2017 Ulcer Leg Left 04/19/2017 Ulcer Toe Left 04/19/2017 Atherosclerosis Of Tribal Ar teries Of Left Leg With Ulceration Of Unspecified Site 04/19/2017 Peripheral Arterial Disease 02/16/2017 Hypertension NOS 02/16/2017 Hypertension And Chronic Kidney Disease Stage 4 09/23/2016 Overview: Hypertension (HTN) And CKD Stage 1-4 [employer] Use Of Insulin Active 09/23/2016 Overview: Jail Use Of Insulin Active Depression Major Recurrent Moderate 06/22/2016 Overview: Depression Major Recurrent Moderate Diabetes Mellitus Type 2 Wit h Other Circulatory Complication 06/22/2016 Overview: DM2 Peripheral Neuropathy Uncontrolled Diagnosis Maintenance Updates May 2023 Encounters Date Type Department Care Team Description 08/16/2023 Documentation Division of Nephrology and Hypertension, [facility], in [place], [place] [address] [place] [address] Ishan Guardado APRN C.N.P., M.S.N. 08/16/2023 Orders Only Division of Nephrology and Hypertension, [facility], in [place], [place] [address] [place] [phone] Ishan Guardado APRN, C.N.P., M.S.N. 08/15/2023 Clinical Communication Division of Nephrology and Hypertension in [place], [place] [address] [place] [address] Haseeb Menon Jr., D.O. New Symptoms 08/09/2023 Documentation Division of Nephrology and Hypertension in [place], [place] [address] [place] [address] Haseeb Menon Jr., D.O. 08/09/2023 Orders Only Division of Nephrology and Hypertension in [place], [place] [address] [place] [address] Haseeb Menon Jr., D.O. 06/17/2023 Orders Only Division of Nephrology and Hypertension in [place], [place] [address] [place] [address] Haseeb Menon Jr., D.O. from Last 3 [...] How often do you attend sabianist or hinduism serv ices? Never 03/24/2021 Do [...] Answer Date Recorded PHQ-2 Score 0 10/20/2018 [facility] [place] of Occupat ional Health - Occupational Stress [...] your living situation today? I have a [facility] place to live 10/26/2022 Education Answer Date Recorded What is the highest level of school you have completed or the highest degree you have received? 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/2021 8:13 PM ROD WELDER Gender Identity Male 08/31/2019 2:40 PM CDT [...] AM CDT Clinical Communication Virtual Review in [place], [place] [address] [place], [place] [address] 10/11/2023 1:30 PM CDT Comprehensive Visit [facility] in [place], [place] [address] [place] [address] [place] Andrade, JULIÁN, C.N.P., M.S.N. [address] [place] [address] Health Maintenance Due Date Last Done Comments [...] history exists Medical Devices Implanted Type Area Windmill Technician Device Identifier Shelf Expiration Date Model / Serial / Lot Patch Vasc Bovine.08cm X 8cm - Flores [id number] Implanted:Qty: 1 on 04/04/2017 Mesh or Patch Other/Legacy - See Implant Description Synovis Description:Device Manufactu rer - [employer]. Body Location - Other. Vascular. Device Status Text - [id number]. Ocular Lens-10/29/2007 Implanted:10/28 by Nato Dougherty, JULIÁN, C.N.P., R.N. 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 Device Status Text - [id number]. Stent Vbx [id number] - Flores [id number] Implanted:Qty: 1 on 03/04/2017 Vascular Graft Other/Legacy - See Implant Description [place] Description:Device Manufactu rer - [employer] [place] [employer] Body Location - Other. n/a. Device Status Text - [id number]. Stent Vbx [id number] - Flores [id number] Implanted:Qty: 1 on 03/04/2017 Vascular Graft Other/Legacy - See Implant Description [place] Description:Device Manufactu rer - [employer] [place] [employer] Body Location - Other. n/a. Device Status Text - [id number]. Stent Zilver Ptx 6mm X 40mm - Flores [id number] Implanted:Qty: 1 on 04/04/2017 Vascular Stent Other/Legacy - See Implant Description [employer] Description:Device Manufactu rer - [employer]. Body Location - Other. Left. Device Status Text - [id number]. Stent Zilver Ptx 6mm X 60mm - Flores [id number] Implanted:Qty: 1 on 04/04/2017 Vascular Stent Other/Legacy - See Implant Description [employer] Description:Device Manufactu rer - [employer]. Body Location - Other. Left. Device Status Text - [id number]. Stent Zilver Ptx 6mm X 80mm - Flores [id number] Implanted:Qty: 1 on 08/31/2017 Vascular Stent Right: Other/Legacy - See Implant Description [employer] / [id number] / Description:Device Manufactu rer - [employer]. Body Location - Right. Device Status Text - [id number]. Stent Zilver Ptx 6mm X 40mm - Flores [id number] Implanted:Qty: 1 on 08/31/2017 Vascular Stent Right: Other/Legacy - See Implant Description [employer] / [id number] / Description:Device Manufactu rer - [employer]. Body Location - Right. Device Status Text - [id number]. [facility] Innovalivia Otw [id number] - [id number] Implanted:Qty: 1 on 04/18/2018 by Kemar Velásquez M.B.BFeiSFei at [facility] Vascular Stent [employer] 05/23/2020 [id number] / / [id number] [facility] Madi Otw [id number] - [id number] Implanted:Qty: 1 on 05/11/2019 by Kemar Velásquez M.B.B.SFei at [facility] Vascular Stent Left: Leg [employer] 09/05/2020 [id number] / / [id number] Procedures Procedure Name Priority Date/Time Associated Diagnosis Comments HCV AB SCRN W/REFLEX TO HCV PCR, S Routine 02/17/2023 9:35 AM CDT Hypertension And Chronic Kidney Disease Stage 4 (HCC) 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) Anemia Of Chronic Renal Disease RENAL FUNCTION PANEL, S Routine 02/17/2023 9:35 AM CDT Hypertension And Chronic Kidney Disease Stage 4 (HCC) 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) Anemia Of Chronic Renal Disease ALBUMIN, RANDOM, U Routine 02/17/2023 9:26 AM CDT Hypertension And Chronic Kidney Disease Stage 4 (HCC) 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) Anemia Of Chronic Renal Disease HEMOGLOBIN A1C, B Routine 11/25/2022 2:09 PM CDT Hypertension And Chronic Kidney Disease Stage 4 (HCC) 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) Anemia Of Chronic Renal Disease Acidosis Metabolic Hyperchloremic Atherosclerosis Of Tribal Ar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 (HCC) CT ABDOMEN PELVIS WITHOUT IV CONTRAST RAD - Routine (most inpatients and all outpatients) 05/27/2022 4:19 PM ROD WELDER LIPID PANEL, S Routine 02/10/2021 8:27 AM CDT Peripheral Arterial Disease (HCC) Diabetes Mellitus Type 2 With Other Circulatory Complication Hyperglycemic (HCC) 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) CT CHEST WITHOUT IV CONTRAST RAD - Routine (most inpatients and all outpatients) 05/07/2020 9:29 PM ROD WELDER from Last 3 Months or Most Recently Relevant to Health Maintenance Results * (ABNORMAL) Renal Function Panel (02/17/2023 9:35 [...] AM CDT 02/17/2023 11:01 AM CDT Narrative [facility] - 02/17/2023 4:02 PM CDT Specimen Information: Specimen ID: [id number] Specimen Type: Blood Specimen Collection Start Date: 02/17/2023 ??9:35 AM Specimen Received Date: 02/17/2023 11:01 AM Specimen ID: [id number] Specimen Type: Blood Specimen Collection Start Date: 02/17/2023 ??9:35 AM Specimen Received Date: 02/17/2023 ??3:35 PM Haseeb Menon Jr., D.O. LAB BLOOD AD D-ON [facility] [address] [place] [address], [facility] [facility] in [place] [address] [place] [address] [facility] [address] [place] [address] * HCV Ab Scrn w/Reflex to HCV PCR, Serum (02/17/2023 9:35 AM CDT) HCV Ab Screen, S Negative Negative 02/18/20 3:35 PM CDT MKTO Comment: Biotin has been identified by the pit furnace operator as a potential interfering substance. Higher concentrations of biotin may be found in multivitamins, hair/nail supplements, and workout supplements. If the result does not match clinical observations, repeat testing after patient refrains from the use of supplements for at least 12 hours. Blood (Blood, Venous) 02/17/2023 9:35 AM CDT 02/17/2023 2:20 PM CDT Narrative [facility] - 02/17/2023 3:35 PM CDT Specimen Information: Specimen ID: [id number] Specimen Type: Blood Specimen Collection Start Date: 02/17/2023 ??9:35 AM Specimen Received Date: 02/17/2023 ??2:20 PM Specimen ID: [id number] Specimen Type: Blood Specimen Collection Start Date: 02/17/2023 ??9:35 AM Specimen Received Date: 02/17/2023 ??2:16 PM Haseeb Menon Jr., D.O. LAB MICROBIO LOGY - BLOOD ORDERABLES Performing Organization Address [facility] Co de Phone Number [facility] [address] [place] [address], [facility] MKTO [facility] in [place] [address] [place] [address] * (ABNORMAL) Albumin, Random, Urine (02/17/2023 9:26 AM CDT) Microalbumin 895.0 mg/L 02/17/2023 1:53 PM CDT OWAT Creatinine 42 mg/dL 02/17/2023 12:50 PM CDT OWAT Albumin/Creatinin e Ratio 2131(H) <17 mg/g 02/17/2023 1:53 PM CDT OWAT Urine (Urine, Voided) 02/17/2023 9:26 AM CDT 02/17/2023 11:00 AM CDT Haseeb Menon Jr., D.O. LAB URINE OR DERABLES Performing Organization Address [facility] Co de Phone Number [facility] [address] [place] [address], [facility] [address] [facility] in [place] [address] [place] [address] * (ABNORMAL) Hemoglobin A1c (11/25/2022 2:09 PM [...] AD D-ON Performing Organization Address City/[facility]/ZIP Co de Phone Number [facility] [address] [place] [address], [place] [address] [facility] in [place] [place] [address] * (ABNORMAL) Lipid Panel (02/10/2021 8:27 AM CDT) Cholesterol, Total 102 mg/dL 2020 10:06 AM CDT DTL Comment: ----REFERENCE VALUE---- Desirable: < 200 Borderline high: 200 - 239 High: > or = 240 Triglycerides 190(H) mg/dL 02/10/2021 10:06 AM CDT DTL Comment: ----REFERENCE VALUE---- Normal: <150 Borderline high: 150-199 High: 200-499 Very high: > or =500 Cholesterol, HDL, S 32(L) >=40 mg/dL 02/10/2021 10:06 AM CDT DTL Calculated LDL 32 mg/dL 02/10/2021 10:06 AM CDT DTL Comment: ----REFERENCE VALUE---- Desirable: <100 mg/dL Above Desirable: 100-129 mg/dL Borderline High: 130-159 mg/dL High: 160-189 mg/dL Very High: >=190 mg/dL Cholesterol, Non-HDL, Calculated 70 mg/dL 02/10/2021 10:06 AM CDT DTL Comment: ----REFERENCE VALUE---- Desirable: <130 Above Desirable: 130-159 Borderline high: 160-189 High: 190-219 Very high: > or =220 Blood (Blood, Venous) 02/10/2021 8:27 AM CDT 02/10/2021 9:07 AM CDT Kemar Reyes LAB BLOOD ADD-ON [facility] [address] [place] [address], [facility] [address] [place] [address] from Last 3 Months or Most Recently Relevant to Health Maintenance Advance Directives For more information, please contact: [phone] * Full Code (Latest Code Status on [...] Answer Comments Full Code: Discussed Care Teams Lead Producer Relationship Specialty Start Date End Date Elsewhere, Pcp PCP - General Family Medicine 01/29/20
--- OUTSIDE RECORDS SUMMARY | 2023-08-30 09:32 | XMS_ITS ---
Author Name Unknown Organization [facility] Address [address] [place] [address] Care Team Providers Care Supervisor Marble Name Role Phone Unavailable Unavailable Unavailable Surgery Details Not on file Complications Check Surgery Details section. Procedure Estimated Blood Loss Check Surgery Details section. Procedure Findings Check Surgery Details section. Procedure Specimens Taken Check Surgery Details section.
--- OUTSIDE RECORDS SUMMARY | 2023-08-30 09:32 | XMS_ITS | Continuity of Care Document ---
Author Name Unknown Organization [facility] Address [address] [place] [address] Phone Care Team Providers Care Protective Services Officer Name Role Phone Dot Warner Unavailable Unavailable Medications Medication Instructions Dosage Effective Dates (start - stop) Status Comments AMPICILLIN-SULBACTAM (unknown strength) Not Available - Active MINOCYCLINE HCL (unknown strength) Not Available - Active Procedures Procedure Date Office/Outpatient Visit,Est, Mod 2022 OFFICE/OUTPATIENT VISIT EST Phone Office/Outpatient Visit,Est, Mod 2022 Followup Hospital Care, [facility] 2021 Advance Directives Directive Yes / No Effective Date File Name No Information Encounters Encounter Description Practice Location Reason(s) For Visit Diagnoses Date Provider Providers Copied on Encounter [facility], [address], [place], [place], [id number] , [place] tel: [phone] [facility] - [facility] No Information 3 Kindra Chris. [facility], [address] [place] [address] [address], [place], [address], [place]. tel: [phone] Office/Outpa tient Visit,Est, Mod [facility], [address], [place], [place], [id number] , [place] tel: [phone] [facility] - [facility] Spinal stenosis, lumbar region with neurogenic claudication 3 Camille Bob. [facility], [address] [place] [address], [address], [place], [address], [place]. tel: [phone] Referring Provider: Lisbeth Thomas, [facility] [address], [address], [place], [address]. [phone] OFFICE/OUTPA TIENT VISIT EST Phone [facility], [address], [place], [place], [id number] , [place] tel:[phone] [facility] No Information 3 Obrien Lisbeth. [facility], [address], [address], [place], [address], [place]. tel:[phone] Referring Provider: Lisbeth Thomas, [facility] [address], [address], [place], [address]. tel:[phone] Office/Outpa tient Visit,Est, Mod [facility], [address], [place], [place], [id number] , [place] [phone] [facility] Low back pain, unspecifiedOther specified soft tissue disorders 3 Obrien Lisbeth. [facility], [address], [address], [place], [address], [place]. tel:[phone] Referring Provider: Lisbeth Thomas, [facility] [address], [address], [place], [address]. tel:[phone] Followup Hospital Care, Moderate [facility], [address], [place], [place], [id number] , [place] [phone] [facility] No Information 2 Nicolasana paula Velez. [facility], [address], [address], [place], [address], [place]. tel:[phone] Referring Provider: Rudy Riddle, [facility] [address], [address]. tel:[phone] Family History Family Member Type Diagnosis Age At Onset No Information Payers Payer name Insurance type Covered libertarian ID Authorjaime[place] bhargav([place]) [id number] Medicare [facility] [id number] Social History Type Description Quantity Date [...]
--- OUTSIDE RECORDS SUMMARY | 2023-08-30 09:32 | XMS_ITS | Referral Summary ---
Author Name Unknown Organization [facility] Address [address] [place] [address] Care Team Providers Care Cattyman Name Role Phone Elsewhere, Pcp Primary Care Provider Unavailabl e Source Comments Patient records contain information from all sites at [facility]. For routine questions regarding patient records, call [phone] during business hours, M-F 8:00 AM - 5:00 PM Central Time. Record requests for emergency care only can be directed to [phone] at any time.[facility] Encounters Date Type Department Care Team Description 08/16/2023 Documentation Division of Nephrology and Hypertension, [facility], in [place], [place] [address] [place] [address] Ishan Guardado APRN, C.N.P., M.S.N. 08/16/2023 Orders Only Division of Nephrology and Hypertension, [facility], in [place], [place] [address] [place] [address] Ishan Guardado APRN, C.N.P., M.S.N. 08/15/2023 Clinical Communication Division of Nephrology and Hypertension in [place], [place] [address] [place] [address] Haseeb Menon Jr., D.OFei New Symptoms 08/09/2023 Documentation Division of Nephrology and Hypertension in [place], [place] [address] [place] [address] Haseeb Menon Jr., D.OFei 08/09/2023 Orders Only Division of Nephrology and Hypertension in [place], [place] [address] [place] [address] Haseeb Menon Jr., D.O. 06/17/2023 Orders Only Division of Nephrology and Hypertension in [place], [place] [address] [place] [address] Haseeb Menon Jr., D.O. from Last 3 Months Allergies Active Allergy Reactions Criticality Noted Date Comments Gabapentin Other (see comments) Medium 08/04/2020 Dizzy, memory issue Morphine Itching,Rash Medium 02/14/2012 itchy Pregabalin Anaphylaxis High 02/16/2017 swell Efkwtlb-Dsf-Plj Reductase Inhibitors Myalgia Low 02/13/2014 Medications Medication [...] ONE CAPSULE BY MOUTH EVERY DAY SENIOR LIVING 01/14/2022 Active allopurinoL (ZYLOPRIM) 100 mg tablet [...] 04/21/2018 Restless Leg Syndrome 01/12/2018 Atherosclerosis Of [place] Ar 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 08/08/2017 Hyperlipidemia 07/22/2017 Ulcer Leg Left 04/19/2017 Ulcer Toe Left 04/19/2017 Atherosclerosis [place] Ar teries Of Left Leg With Ulceration Of Unspecified Site 04/19/2017 Peripheral Arterial Disease 02/16/2017 Hypertension NOS 02/16/2017 Hypertension And Chronic Kidney Disease Stage 4 09/23/2016 Overview: Hypertension (HTN) And CKD Stage 1-4 Residential Use Of Insulin Active 09/23/2016 Overview: Residential Use Of Insulin Active Depression Major Recurrent [...] How often do you attend mandaeism or moravian serv ices? 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 [address] [place] [phone] Medical Devices Implanted Type Area Blow Moulding Machine Operator Device Identifier Shelf Expiration Date Model / Serial / Lot Patch Vasc Bovine.08cm X 8cm - Flores [id number] Implanted:Qty: 1 on 04/04/2017 Mesh or Patch Other/Legacy - See Implant Description Synovis Description:Device Manufactu rer - Synovis. Body Location - Other. Vascular. Device Status Text - [id number]. Ocular Lens-10/29/2007 Implanted:10/28 by Nato Dougherty, JULIÁN, C.N.P., R.N. (Quantity not on file) Ocular Lens Bilateral: Eye Description:Cataract extract ion and insertion of intraocular lens 06/22/2016 09:27 - NATO DOUGHERTY ENGINEERING AIDE TEST ARCHITECT bilateral Conversions - Default Historical Implant Device [...] 6mm X 29mm X 135cm - Flores [id number] Implanted:Qty: 1 on 03/04/2017 Vascular Graft Wing Description:Device Manufactu rer - Wing Medical. Device Status Text - [id number]. Stent Vbx [id number] - Flores [id number] Implanted:Qty: 1 on 03/04/2017 Vascular Graft Other/Legacy - See Implant Description Wing Description:Device Manufactu rer - [employer] Body Location - Other. n/a. Device Status Text - [id number]. Stent Vbx [id number] - Flores [id number] Implanted:Qty: 1 on 03/04/2017 Vascular Graft Other/Legacy - See Implant Description Wing Description:Device Manufactu rer - [employer] Body Location - Other. n/a. Device Status Text - [id number]. Stent Zilver Ptx 6mm X 40mm - Flores [id number] Implanted:Qty: 1 on 04/04/2017 Vascular Stent Other/Legacy - See Implant Description [employer]. Description:Device Manufactu rer - Violet. Body Location - Other. Left. Device Status Text - [id number]. Stent Zilver Ptx 6mm X 60mm - Flores [id number] Implanted:Qty: 1 on 04/04/2017 Vascular Stent Other/Legacy - See Implant Description [employer]. Description:Device Manufactu rer - [employer]. Body Location - Other. Left. Device Status Text - [id number]. Stent Zilver Ptx 6mm X 80mm - Flores [id number] Implanted:Qty: 1 on 08/31/2017 Vascular Stent Right: Other/Legacy - See Implant Description [employer]. / [id number] / Description:Device Manufactu rer - [employer]. Body Location - Right. Device Status Text - [id number]. Stent Zilver Ptx 6mm X 40mm - Flores [id number] Implanted:Qty: 1 on 08/31/2017 Vascular Stent Right: Other/Legacy - See Implant Description [employer]. / [id number] / Description:Device Manufactu rer - [employer]. Body Location - Right. Device Status Text - [id number]. Stnt Innova Otw [id number] - [id number] Implanted:Qty: 1 on 04/18/2018 by Kemar Velásquez M.B.B.S. at [facility] Vascular Stent [employer] 05/23/2020 [id number] / / [id number] Stnt Innova Otw [id number] - [id number] Implanted:Qty: 1 on 05/11/2019 by Kemar Velásquez M.B.B.S. at [facility] Vascular Stent Left: Leg [employer] 09/05/2020 [id number] / / [id number] Procedures Procedure Name Priority Date/Time Associated Diagnosis [...] Renal Disease Acidosis Metabolic Hyperchloremic Atherosclerosis Of [place] Ar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 (HCC) CT ABDOMEN PELVIS WITHOUT IV CONTRAST RAD - Routine (most inpatients and all outpatients) 05/27/2022 4:19 PM INSPECTOR ROUGH CASTINGS LIPID PANEL, S Routine 02/10/2021 8:27 AM CDT Peripheral Arterial Disease (HCC) Diabetes Mellitus Type 2 With Other Circulatory Complication Hyperglycemic (HCC) 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) CT CHEST WITHOUT IV CONTRAST RAD - Routine (most inpatients and all outpatients) 05/07/2020 9:29 PM INSPECTOR ROUGH CASTINGS from Last 3 Months or Most Recently [...] AM CDT 02/17/2023 11:01 AM CDT Narrative [facility] - 02/17/2023 4:02 PM CDT Specimen Information: Specimen ID: [id number] Specimen Type: Blood Specimen Collection Start Date: 02/17/2023 ??9:35 AM Specimen Received Date: 02/17/2023 11:01 AM Specimen ID: [id number] Specimen Type: Blood Specimen Collection Start Date: 02/17/2023 ??9:35 AM Specimen Received Date: 02/17/2023 ??3:35 PM Haseeb Menon Jr., D.O. LAB BLOOD AD D-ON [facility] [address] [place] [address], [facility] in [place] [address] [place] [address] [facility] [address] [place] [address] * HCV Ab Scrn w/Reflex to HCV PCR, Serum (02/17/2023 9:35 AM CDT) HCV Ab Screen, S Negative Negative 02/18/20 3:35 PM CDT [facility] Comment: Biotin has been identified by the cotton candy maker as a potential interfering substance. Higher concentrations of biotin may be found in multivitamins, hair/nail supplements, and workout supplements. If the result does not match clinical observations, repeat testing after patient refrains from the use of supplements for at least 12 hours. Blood (Blood, Venous) 02/17/2023 9:35 AM CDT 02/17/2023 2:20 PM CDT Narrative [facility] - 02/17/2023 3:35 PM CDT Specimen Information: Specimen ID: [id number] Specimen Type: Blood Specimen Collection Start Date: 02/17/2023 ??9:35 AM Specimen Received Date: 02/17/2023 ??2:20 PM Specimen ID: [id number] Specimen Type: Blood Specimen Collection Start Date: 02/17/2023 ??9:35 AM Specimen Received Date: 02/17/2023 ??2:16 PM Haseeb Menon Jr., D.O. LAB MICROBIO LOGY - BLOOD ORDERABLES [facility] [address] [place] [address], [facility] in [place] [address] [place] [address] * (ABNORMAL) Albumin, Random, Urine (02/17/2023 9:26 AM CDT) Microalbumin 895.0 mg/L 02/17/2023 1:53 PM CDT [facility] Creatinine 42 mg/dL 02/17/2023 12:50 PM CDT [facility] Albumin/Creatinin e Ratio 2131(H) <17 mg/g 02/17/2023 1:53 PM CDT [facility] Urine (Urine, Voided) 02/17/2023 9:26 AM CDT 02/17/2023 11:00 AM CDT Haseeb C Puxico Jr., D.O. LAB URINE OR DERABLES Performing Organization Address [facility] de Phone Number [facility] [address] [place] [address], [facility] in [place] [address] [place] [address] * (ABNORMAL) Hemoglobin A1c (11/25/2022 2:09 PM CDT) Hemoglobin A1c, B 6.2(H) 4.2 - 5.6 % 11/25/2022 4:40 PM CDT [facility] Comment: Hemoglobin A1c values of 5.7-6.4 percent indicate an increased risk for developing diabetes mellitus. In diabetic patients, HbA1c goals should be discussed with healthcare provider. Blood (Blood, Venous) 11/25/2022 2:09 PM CDT 11/25/2022 3:35 PM CDT Haseeb Menon Jr., D.O. LAB BLOOD AD D-ON Performing Organization Address [facility] Co de Phone Number [facility] [address] [place] [address], [facility] in [place] [address] [place] [address] * (ABNORMAL) Lipid Panel (02/10/2021 8:27 AM [...] AM CDT Kemar Reyes LAB BLOOD ADD-ON [facility] [address] [place] [address], [facility] [address] [place] [address] from Last 3 Months or Most Recently Relevant to Health Maintenance Advance Directives For more information, please contact: [phone] * Full Code (Latest Code Status on [...] Answer Comments Full Code: Discussed Care Teams Cattyman Relationship Specialty Start Date End Date Elsewhere, Pcp PCP - General Family Medicine 01/29/20
--- OUTSIDE RECORDS SUMMARY | 2023-08-30 09:33 | XMS_ITS | Encounter Summary ---
Author Name Unknown Organization [facility] Address [address] [place] [address] Care Team Providers Care Lawn Technician Name Role Phone Elsewhere, Pcp Primary Care Provider Unavailabl e Encounter Details Date Type Department Care Team (Late st Contact Info) Description 06/17/2023 Orders Only Division of Nephrology and Hypertension in [place], [place] [address] [place] [address] Haseeb Menon Jr., D.O. [address] [place] [address] Social History Tobacco Use Types Packs/Day Years [...] How often do you attend anglican or catholic serv ices? Never 03/24/2021 Do [...] your living situation today? I have a [facility] place to live 10/26/2022 Education Answer Date Recorded What is the highest level of school you have completed or the highest degree you have received? 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 [address] [place] [phone] documented as of this encounter Visit Diagnoses Not on filedocumented in this encounter Additional Health Concerns Assessment Noted Time PHQ-9 Depression Total Score: 3 01/04/20 18 10:38 AM CDT documented as of this encounter Care Teams Lawn Technician Relationship Specialty Start Date End Date Elsewhere, Pcp PCP - General Family Medicine 01/29/20 documented as of this encounter
--- OUTSIDE RECORDS SUMMARY | 2023-08-30 09:33 | XMS_ITS | Encounter Summary ---
Author Name Unknown Organization [facility] Address [address] [place] [address] Care Team Providers Care Custom Protection Officer Name Role Phone Elsewhere, Pcp Primary Care Provider Unavailabl e Encounter Details Date Type Department Care Team (Late st Contact Info) Description 08/09/2023 Documentation Division of Nephrology and Hypertension in [place], [place] [address] [place] [address] Haseeb Menon Jr., D.O. [address] [place] [address] Social History Tobacco Use Types Packs/Day Years [...] How often do you attend bahai or episcopal serv ices? Never 03/24/2021 Do [...] PHQ-2 Score 0 10/20/2018 [facility] of Occupat ional Health - Occupational [...] living situation today? I have a [facility] place to live 10/26/2022 Education Answer Date Recorded What is the highest level of school you have completed or the highest degree you have received? 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 - 08/09/2023 3:25 PM CDT Care coordination-home dialysis clinic note Please see the [facility] sure scripts and Care everywhere note from [...] AM CDT Clinical Communication Virtual Review in [place], [place] 200 [place] [address] 10/11/2023 1:30 PM CDT Comprehensive Visit [facility] in [address] [phone] Dallas Andrade, JULIÁN, C.N.P., M.S.N. [address] [place] [phone] documented as of this encounter Visit Diagnoses Not on filedocumented in this encounter Additional Health Concerns Assessment Noted Time PHQ-9 Depression Total Score: 3 01/04/20 18 10:38 AM CDT documented as of this encounter Care Teams Custom Protection Officer Relationship Specialty Start Date End Date Elsewhere, Pcp PCP - General Family Medicine 01/29/20 documented as of this encounter
--- OUTSIDE RECORDS SUMMARY | 2023-08-30 09:33 | XMS_ITS | Encounter Summary ---
Author Name Unknown Organization [facility] Address [address] [place] [address] Care Team Providers Care Tailer In Name Role Phone Elsewhere, Pcp Primary Care Provider Unavailabl e Reason for Visit * Reason Onset Date Comments New Symptoms 08/15/2023 Encounter Details Date Type Department Care Team (Latest Contact Info) Description 08/15/2023 Clinical Communication Division of Nephrology and Hypertension in [place], [place] [address] [place] [address] Haseeb Menon Jr., D.O. [address] [place] [address] New Symptoms Social History Tobacco Use Types [...] How often do you attend religious or yarsani serv ices? Never 03/24/2021 Do [...] Answer Date Recorded PHQ-2 Score 0 10/20/2018 [facility] of Occupat ional Health - Occupational Stress [...] your living situation today? I have a [facility] place to live 10/26/2022 Education Answer Date Recorded What is the highest level of school you have completed or the highest degree you have received? 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 - 08/15/2023 3:20 PM CDT SUBJECTIVE [...] episode on 08/08 (the same day the Rosendo visited with Dr. Menon), during which she [...] I spoke with Uriel, Pharmacist, in our [facility]. Per his medication database, a Peritoneal [...] he has any additional recommendations, will callthe Yaniramaría back at that time. Information/Education: patient/caller able to teach back. Caller agreeable to plan of care: yes. The following references were used: other [facility] Pharmacist . * Telephone Encounter - Chloe Lazo - 08/15/2023 10:43 AM CDT Caller is: : Authorization YES Preferred Communication Method: [phone] Reason for call: Pt's , Siria, called [...] AM CDT Clinical Communication Virtual Review in [address] [address] 10/11/2023 1:30 PM CDT Comprehensive Visit [facility] in [place], [place] [address] [place] [phone] Dallas Andrade, JULIÁN, C.N.P., M.S.N. [address] [place] [phone] documented as of this encounter Visit Diagnoses Not on filedocumented in this encounter Additional Health Concerns Assessment Noted Time PHQ-9 Depression Total Score: 3 01/04/20 18 10:38 AM CDT documented as of this encounter Care Teams Tailer In Relationship Specialty Start Date End Date Elsewhere, Pcp PCP - General Family Medicine 01/29/20 documented as of this encounter
--- OUTSIDE RECORDS SUMMARY | 2023-08-30 09:33 | XMS_ITS | Encounter Summary ---
Author Name Unknown Organization [facility] Address [address] [place] [address] Care Team Providers Care Learning Consultant Name Role Phone Elsewhere, Pcp Primary Care Provider Unavailpaola e Encounter Details Date Type Department Care Team (Late st Contact Info) Description 08/19/2016 Historical Ophthalmology [facility] Chalo Holland Jr., M.D. 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 [address] [place] [phone] documented as of this encounter Visit Diagnoses Not on filedocumented in this encounter Additional Health Concerns Infection Onset Date Last Indicated Resolved Time COVID19 Pending 05/08/2020 05/08/2020 05/08/2020 2 :44 PM KITCHEN FOOD SERVER Assessment Noted Time PHQ-9 Depression Total Score: 7 08/17/19 17 9:01 AM CDT documented as of this encounter Care Teams Learning Consultant Relationship Specialty Start Date End Date Elsewhere, Pcp PCP - General Family Medicine 01/29/20 documented as of this encounter
--- OUTSIDE RECORDS SUMMARY | 2023-08-30 09:33 | XMS_ITS | Encounter Summary ---
Author Name Unknown Organization [facility] Address [address] [place] [address] Care Team Providers Care Ore Washer Name Role Phone Elsewhere, Pcp Primary Care Provider Unavailabl e Encounter Details Date Type Department Care Team (Late st Contact Info) Description 08/09/2023 Orders Only Division of Nephrology and Hypertension in [place], [place] [address] [place] [address] Haseeb Menon Jr., D.O. [address] [place] [address] Social History Tobacco Use Types Packs/Day Years [...] week 03/24/2021 How often do you attend restoration or christianity serv ices? Never 03/24/2021 Do you belong to any clubs o r organizations such as restoration groups, unions, fraternal or athletic groups, or [...] Date Recorded PHQ-2 Score 0 10/20/2018 [facility] of Occupat ional Health - [...] living situation today? I have a [facility] place to live 10/26/2022 Education Answer Date Recorded What is the highest level of school you have completed or the highest degree you have received? 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 [address] [place] [phone] documented as of this encounter Visit Diagnoses Not on filedocumented in this encounter Additional Health Concerns Assessment Noted Time PHQ-9 Depression Total Score: 3 01/04/20 18 10:38 AM CDT documented as of this encounter Care Teams Ore Washer Relationship Specialty Start Date End Date Elsewhere, Pcp PCP - General Family Medicine 01/29/20 documented as of this encounter
--- OUTSIDE RECORDS SUMMARY | 2023-08-30 09:33 | XMS_ITS | Encounter Summary ---
Author Name Unknown Organization [facility] Address [address] [place] [address] Care Team Providers Care Customer Support Professional Name Role Phone Elsewhere, Pcp Primary Care Provider Unavailabl e Encounter Details Date Type Department Care Team (Late st Contact Info) Description 08/16/2023 Orders Only Division of Nephrology and Hypertension, [facility], in [place], [place] [address] [place] [address] Ishan Guardado, JULIÁN, C.N.P., M.S.N. [address] [place] [address] Social History Tobacco Use Types Packs/Day Years [...] How often do you attend orthodoxy or christianity serv ices? 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 [address] [place] [phone] documented as of this encounter Visit Diagnoses Not on filedocumented in this encounter Additional Health Concerns Assessment Noted Time PHQ-9 Depression Total Score: 3 01/04/20 18 10:38 AM CDT documented as of this encounter Care Teams Customer Support Professional Relationship Specialty Start Date End Date Elsewhere, Pcp PCP - General Family Medicine 01/29/20 documented as of this encounter
== END 2023-08-30 09:30 | disposition home or self-care (01) ==
LOC: WOUND 09:29
PROVIDERS: PCP Family Medicine; Visit Provider Nurse Practitioner Family
DX: E11.621 Type 2 diabetes mellitus with foot ulcer (principal); L97.518 Non-pressure chronic ulcer of other part of right foot with other specified severity; E11.22 Type 2 diabetes mellitus with diabetic chronic kidney disease; N18.5 Chronic kidney disease, stage 5; Z96.41 Presence of insulin pump (external) (internal)
CPT/HCPCS: 11042

== ENCOUNTER 2023-09-06 09:25 | Outpatient (CLI) | payer MEDICARE, BC, SELFPAY | END 2023-09-06 09:26 | disposition home or self-care (01) | LOC: WOUND 09:26 | PROVIDERS: PCP Family Medicine; Visit Provider Nurse Practitioner Family | DX: E11.621 Type 2 diabetes mellitus with foot ulcer (principal); E11.22 Type 2 diabetes mellitus with diabetic chronic kidney disease; N18.5 Chronic kidney disease, stage 5; L97.518 Non-pressure chronic ulcer of other part of right foot with other specified severity; I89.0 Lymphedema, not elsewhere classified; S91.104A Unspecified open wound of right lesser toe(s) without damage to nail, initial encounter; Z96.41 Presence of insulin pump (external) (internal) | CPT/HCPCS: 11042 ==

== ENCOUNTER 2023-09-13 09:51 | Outpatient (CLI) | payer MEDICARE, BC, SELFPAY | END 2023-09-13 09:52 | disposition home or self-care (01) | LOC: WOUND 09:51 | PROVIDERS: PCP Family Medicine; Visit Provider Nurse Practitioner Family | DX: E11.621 Type 2 diabetes mellitus with foot ulcer (principal); L97.516 Non-pressure chronic ulcer of other part of right foot with bone involvement without evidence of necrosis; E11.22 Type 2 diabetes mellitus with diabetic chronic kidney disease; N18.5 Chronic kidney disease, stage 5; I89.0 Lymphedema, not elsewhere classified; I73.9 Peripheral vascular disease, unspecified; Z99.2 Dependence on renal dialysis; Z96.41 Presence of insulin pump (external) (internal) | CPT/HCPCS: 11044; 87070; 87186; 88307; 96372; G0463; J0696 ==

== ENCOUNTER 2023-09-20 09:25 | Outpatient (CLI) | payer MEDICARE, BC, SELFPAY ==
--- OUTSIDE RECORDS SUMMARY | 2023-09-20 09:28 | XMS_ITS | Clinical Summary ---
Author Name Unknown Organization [facility] Address [address] [place] [address] Care Team Providers Care Fsr Name Role Phone Elsewhere, Pcp Primary Care Provider Unavailabl e Source Comments Patient records contain information from all sites at [facility]. For routine questions regarding patient records, call [phone] during business hours, M-F 8:00 AM - 5:00 PM Central Time. Record requests for emergency care only can be directed to [phone] at any time.[facility] Allergies Active Allergy Reactions Criticality Noted Date Comments Gabapentin Other (see comments) Medium 08/04/2020 Dizzy, memory issue Morphine Itching,Rash Medium 02/14/2012 itchy Pregabalin Anaphylaxis High 02/16/2017 swell Vujntfz-Pkg-Zan Reductase Inhibitors Myalgia Low 02/13/2014 Medications Medication Sig Dispensed Refills Start Date End Date Status DULoxetine (CYMBALTA) [address] capsule Take 60 mg by mouth at bedtime. 7 Active nortriptyline (PAMELOR) 50 mg capsule Take 100 mg by mouth at bedtime. 5 8 Active omeprazole (PriLOSEC) [address] capsule Take 40 mg by mouth every evening. 6 Active ferrous sulfate 325 mg (65 mg iron) tablet Take 27 mg by mouth daily. States taking 27 mg daily Active atorvastatin (LIPITOR) 20 mg tablet Take 1 tablet (20 mg total) by mouth at bedtime. 90 tablet 3 0 Active pramipexole (MIRAPEX) 0.5 mg tablet Take 0.5 mg by mouth at bedtime. Active carvediloL (COREG) 25 mg tablet Take 2 tablets (50 mg total) by mouth 2 (two) times a day with meals. 1 Active acetaminophen (TYLENOL) 500 mg tablet Take 2 tablets (1,000 mg total) by mouth every 8 (eight) hours as needed (neuropathy). 1 Active doxepin (SINEquan) 10 mg capsule TAKE ONE CAPSULE BY MOUTH EVERY DAY AT BEDTIME 90 capsule 3 2 Active minocycline (MINOCIN,DYNACIN ) 100 mg capsule TAKE ONE CAPSULE BY MOUTH TWICE A DAY FOR 10 DAYS AND THEN TAKE ONE CAPSULE BY MOUTH EVERY DAY RIGHT OF WAY BUYER 2 Active allopurinoL (ZYLOPRIM) 100 mg tablet Take 100 mg by mouth daily. Active sodium bicarbonate 650 mg tabletIndication s:Hypertension And Chronic Kidney Disease Stage 4 DISSOLVE AND TAKE ONE TABLET BY MOUTH TWICE A DAY 180 tablet 3 3 02/01/20 [address] tablet Take 81 mg by mouth daily. Active ergocalciferol (Vitamin D2) 50,000 Unit capsule Take 50,000 Units by mouth once a week. Active oxyCODONE (ROXICODONE) 5 mg immediate release tabletIndication s:Acute Pain Exception Take 1 tablet (5 mg total) by mouth every 6 (six) hours as needed for severe pain or score 7-10 of 10 Indication: Acute Pain Exception. for pain 6 tablet 3 Active blood-glucose sensor device 2 Active UNABLE TO FIND Insulin pump Active calcium citrate (CALCITRATE) 950 mg (200 mg calcium) tablet TAKE FOUR TABLETS BY MOUTH AT BEDTIME 300 tablet 3 3 Active sennosides-docus ate sodium (SENOKOT-S) 8.6-50 mg per tablet Take 1 tablet by mouth 2 (two) times a day. 180 tablet 3 3 03/20/20 24 Active furosemide (LASIX) 80 mg tablet Take 2 tablets (160 mg total) by mouth 2 (two) times a day. 360 tablet 3 3 Active calcium acetate,phosphat bind, (PHOSLO) 667 mg (169 mg calcium) capsule Take 2 capsules (1,334 mg total) by mouth 3 (three) times a day with meals. 540 capsule 3 4 06/16/19 25 Active lisinopriL (PRINIVIL,ZESTRI L) 40 mg tablet Take 0.5 tablets (20 mg total) by mouth daily. Patient reports it was decreased by primary physician about 04/2020 per patient report. 45 tablet 3 4 09/13/19 25 Active lisinopriL (PRINIVIL,ZESTRI L) 40 mg tablet Take 0.5 tablets (20 mg total) by mouth daily. Patient reports it was decreased by primary physician about 04/2020 per patient report. 1 09/09/19 24 Discontinued(Reo rder) lisinopriL (PRINIVIL,ZESTRI L) 40 mg tablet Take 1 tablet (40 mg total) by mouth daily. Patient reports it was decreased by primary physician about 04/2020 per patient report. 90 tablet 3 4 09/13/19 24 Discontinued minoxidiL (LONITEN) 2.5 mg tablet Take 1 tablet (2.5 mg total) by mouth daily. 90 tablet 3 4 09/13/19 24 Discontinued(Err or) Active Problems Patient Care Coordination No te Formatting of this note migh t be different from the original. Spouse: Siria Children: Maria M Deluca Lisa, Bethany, 13 grand babies Work: no Problem Noted Date Diagnosed Date Sleep Apnea 04/15/2023 Abrasion Leg Initial Left 03/03/2023 Wound [...] Restless Leg Syndrome 01/12/2018 Atherosclerosis Of [place] Ar 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 08/08/2017 Hyperlipidemia 07/22/2017 Ulcer Leg Left 04/19/2017 Ulcer Toe Left 04/19/2017 Atherosclerosis Of [place] Ar teries Of Left Leg With Ulceration Of Unspecified Site 04/19/2017 Peripheral Arterial Disease 02/16/2017 Hypertension NOS 02/16/2017 Hypertension And Chronic Kidney Disease Stage 4 09/23/2016 Overview: Hypertension (HTN) And CKD Stage 1-4 Fpc Use Of Insulin Active 09/23/2016 Overview: Fpc Use Of Insulin Active Depression Major Recurrent Moderate 06/22/2016 Overview: Depression Major Recurrent Moderate Diabetes Mellitus Type 2 Wit h Other Circulatory Complication 06/22/2016 Overview: DM2 Peripheral Neuropathy Uncontrolled Diagnosis Maintenance Updates May 2023 Encounters Date Type Department Care Team Description 09/13/2023 Documentation Division of Nephrology and Hypertension in [place], [place] [address] [place] [address] Haseeb Menon Jr., D.O. 09/13/2023 Orders Only Division of Nephrology and Hypertension in [place], [place] [address] [place] [address] Haseeb Menon Jr., D.O. Atherosclerosis Of [place] Ar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 (HCC) (Primary Dx); Diabetes Mellitus Type 2 With Other Circulatory Complication (HCC); Anemia Of Chronic Renal Disease; Sleep Apnea 09/09/2023 Documentation Division of Nephrology and Hypertension in [place], [place] [address] [place] [address] Haseeb Menon Jr. D.OFei 09/09/2023 Orders Only Division of Nephrology and Hypertension in [place], [place] [address] [place] [address] Haseeb Menon Jr., D.O. 09/09/2023 Clinical Communication Division of Nephrology and Hypertension in [place], [place] [address] [place] [address] Haseeb Menon Jr., D.O. Hypertension 08/16/2023 Documentation Division of Nephrology and Hypertension, [facility], in [place], [place] [address] [place] [address] Ishan Guardado APRN C.N.P., M.S.N. 08/16/2023 Orders Only Division of Nephrology and Hypertension, [facility], in [place], [place] [address] [place] [address] Ishan Guardado APRN, C.N.Kinza., M.S.N. 08/15/2023 Clinical Communication Division of Nephrology and Hypertension in [place], [place] [address] [place] [address] Haseeb Menon Jr., D.O. New Symptoms 08/09/2023 Documentation Division of Nephrology and Hypertension in [place], [place] [address] [place] [address] Haseeb Menon Jr., D.O. 08/09/2023 Orders Only Division of Nephrology and Hypertension in [place], [place] [address] [place] [address] Haseeb Menon Jr., D.O. from Last 3 [...] How often do you attend sabianist or oriental orthodox serv ices? 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 [address] [place] [phone] Health Maintenance Due Date Last Done Comments CT Colonography 1950 Cologuard 1950 Depression Monitoring (PHQ-9) 1950 Zoster Vaccines (1 of 2) 03/29/2012 02/02/2012 Dilated Eye Exam 08/19/2017 08/19/2016 FIT 08/24/2017 08/24/2016 Diabetic Office Visit with F oot Exam 07/22/2018 07/22/2017, 06/22/2016 Diabetes Education 05/01/2019 05/01/2018, 09/23/2016 Lung Cancer Screening 05/07/2021 05/07/2020 COVID-19 Vaccine (2 4 season) 2023 10/27/2021, 04/02/2021, 08/09/2020, Additional history exists Fall Risk Screen (Annual) 05/16/2023 Hemoglobin A1C 05/28/2023 11/25/2022, 08/15, 02/10/2021, Additional history exists Creatinine Level (Kidney Fun ction Test) 02/18/2024 02/17/2023, 02/16/2023, 01/11/2023, Additional history exists Potassium Level 02/18/2024 02/17/2023, 100 08/2022, 01/11/2023, Additional history exists Sodium Level 02/18/2024 02/17/2023, 10/0 08/2022, 01/11/2023, Additional history exists Urine Albumin [...] history exists Medical Devices Implanted Type Area Hiv Prevention Specialist Device Identifier Shelf Expiration Date Model / Serial / Lot Patch Vasc Bovine.08cm X 8cm - Flores [id number] Implanted:Qty: 1 on 04/04/2017 Mesh or Patch Other/Legacy - See Implant Description Synovis Description:Device Manufactu rer - Synovi. Body Location - Other. Vascular. Device Status Text - [id number]. Ocular Lens-10/29/2007 Implanted:10/28 by Nato Dougherty, JULIÁN, C.N.P., R.N. (Quantity not on file) Ocular Lens Bilateral: Eye Description:Cataract extract ion and insertion of intraocular lens 06/22/2016 09:27 - NATO DOUGHERTY BALLISTICIAN BILINGUAL CASE MANAGER bilateral Conversions - Default Historical Implant [...] 6mm X 29mm X 135cm - Flores [id number] Implanted:Qty: 1 on 03/04/2017 Vascular Graft Gilman Description:Device Manufactu rer - [employer]. Device Status Text - [id number]. Stent Vbx [id number] - Flores [id number] Implanted:Qty: 1 on 03/04/2017 Vascular Graft Other/Legacy - See Implant Description Gilman Description:Device Manufactu rer - [employer] Body Location - Other. n/a. Device Status Text - [id number]. Stent Vbx [id number] - Flores [id number] Implanted:Qty: 1 on 03/04/2017 Vascular Graft Other/Legacy - See Implant Description Gilman Description:Device Manufactu rer - [employer] Body Location - Other. n/a. Device Status Text - [id number]. Stent Zilver Ptx 6mm X 40mm - Flores [id number] Implanted:Qty: 1 on 04/04/2017 Vascular Stent Other/Legacy - See Implant Description [employer] Description:Device Manufactu rer - [employer]. Body Location - Other. Left. Device Status Text - [id number]. Stent Zilver Ptx 6mm X 60mm - Flores [id number] Implanted:Qty: 1 on 04/04/2017 Vascular Stent Other/Legacy - See Implant Description [employer] Description:Device Manufactu rer - [employer]. Body Location - Other. Left. Device Status Text - [id number]. Stent Zilver Ptx 6mm X 80mm - Flores [id number] Implanted:Qty: 1 on 08/31/2017 Vascular Stent Right: Other/Legacy - See Implant Description [employer] / [id number] / Description:Device Manufactu Seevibes - [employer]. Body Location - Right. Device Status Text - [id number]. Stent Zilver Ptx 6mm X 40mm - [place] [id number] Implanted:Qty: 1 on 08/31/2017 Vascular Stent Right: Other/Legacy - See Implant Description [employer] / [id number] / Description:Device Manufactu Seevibes - [employer]. Body Location - Right. Device Status Text - [id number]. Stnt Innova Otw [id number] - [id number] Implanted:Qty: 1 on 04/18/2018 by Keamr Velásquez M.B.B.S. at [facility] Vascular Stent [employer] 05/23/2020 [id number] / / [id number] Stnt Innova Otw [id number] - [id number] Implanted:Qty: 1 on 05/11/2019 by Kemar Velásquez M.B.B.S. at [facility] Vascular Stent Left: Leg [employer] 09/05/2020 [id number] / / [id number] Procedures Procedure Name Priority Date/Time Associated Diagnosis [...] Renal Disease Acidosis Metabolic Hyperchloremic Atherosclerosis Of [place] Ar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 (HCC) CT ABDOMEN PELVIS WITHOUT IV CONTRAST RAD - Routine (most inpatients and all outpatients) 05/27/2022 4:19 PM SUCTION DRUM DRIER OPERATOR LIPID PANEL, S Routine 02/10/2021 8:27 AM CDT Peripheral Arterial Disease (HCC) Diabetes Mellitus Type 2 With Other Circulatory Complication Hyperglycemic (HCC) 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) CT CHEST WITHOUT IV CONTRAST RAD - Routine (most inpatients and all outpatients) 05/07/2020 9:29 PM SUCTION DRUM DRIER OPERATOR from Last 3 Months or Most Recently [...] 4:02 PM CDT Specimen Information: Specimen ID: [id number] Specimen Type: Blood Specimen Collection Start Date: 02/17/2023 ??9:35 AM Specimen Received Date: 02/17/2023 11:01 AM Specimen ID: [id number] Specimen Type: Blood Specimen Collection Start Date: 02/17/2023 ??9:35 AM Specimen Received Date: 02/17/2023 ??3:35 PM Estiven He Jr.O. LAB BLOOD AD D-ON [facility] [address] [place] [address], [facility] in [address] [place] [address] AUST [facility] - [facility] [address] [place] [address] * HCV Ab Scrn w/Reflex to HCV PCR, Serum (02/17/2023 9:35 AM CDT) HCV Ab Screen, S Negative Negative 02/18/20 3:35 PM CDT MKTO Comment: Biotin has been identified by the potato chip packaging machine operator as a potential interfering substance. Higher concentrations of biotin may be found in multivitamins, hair/nail supplements, and workout supplements. If the result does not match clinical observations, repeat testing after patient refrains from the use of supplements for at least 12 hours. Blood (Blood, Venous) 02/17/2023 9:35 AM CDT 02/17/2023 2:20 PM CDT Narrative [facility] - 02/17/2023 3:35 PM CDT Specimen Information: Specimen ID: [id number] Specimen Type: Blood Specimen Collection Start Date: 02/17/2023 ??9:35 AM Specimen Received Date: 02/17/2023 ??2:20 PM Specimen ID: [id number] Specimen Type: Blood Specimen Collection Start Date: 02/17/2023 ??9:35 AM Specimen Received Date: 02/17/2023 ??2:16 PM Haseeb Menon Jr., D.O. LAB MICROBIO LOGY - BLOOD ORDERABLES [facility] [address] [place] [address], [facility] in [place] [address] [place] [address] * (ABNORMAL) Albumin, Random, Urine (02/17/2023 9:26 AM CDT) Microalbumin 895.0 mg/L 02/17/2023 1:53 PM CDT [facility] Creatinine 42 mg/dL 02/17/2023 12:50 PM CDT [facility] Albumin/Creatinin e Ratio 2131(H) <17 mg/g 02/17/2023 1:53 PM CDT [facility] Urine (Urine, Voided) 02/17/2023 9:26 AM CDT 02/17/2023 11:00 AM CDT Haseeb Menon Jr., D.O. LAB URINE OR DERABLES Performing Organization Address [facility] Co de Phone Number [facility] [address] [place] [address], [facility] in [place] [address] [place] [address] * (ABNORMAL) Hemoglobin A1c (11/25/2022 2:09 PM [...] LAB BLOOD AD D-ON Performing Organization Address [facility] Co de Phone Number [facility] [address] [place] [address], [facility] in [place] [address] [place] [address] * (ABNORMAL) Lipid Panel (02/10/2021 8:27 AM [...] AM CDT Kemar Reyes LAB BLOOD ADD-ON [facility] [address] [place] [address], [facility] [address] [place] [address] from Last 3 Months or Most Recently Relevant to Health Maintenance Advance Directives For more information, please contact: [phone] * Full Code (Latest Code Status on [...] Answer Comments Full Code: Discussed Care Teams Fsr Relationship Specialty Start Date End Date Elsewhere, Pcp PCP - General Family Medicine 01/29/20
--- OUTSIDE RECORDS SUMMARY | 2023-09-20 09:28 | XMS_ITS | Clinical Summary ---
Author Name Unknown Organization [email or web address] Address [place], [place] [address] Care Team Providers Care Principal Product Manager Name Role Phone Casa Lucia MD Unavailable Unavailable Rudy Riddle MD Unavailable [phone] Rudy Riddle MD Primary Care Provider + Allergies Active Allergy Reactions Criticality Noted Date Comments Gabapentin Other - Describe In Comment Field Medium 08/04/2020 Dizzy, memory issue Dizzy, memory issue Morphine Itching 02/04/2010 After 3 days of use Pregabalin Anaphylaxis,Itching High 02/16/2017 swell swell Lhjdwjd-Mcw-Iir Reductase Inhibitors Myalgia 02/13/2014 Medications Medication Sig [...] 09/18/2007 Type 2 Diabetes A1C< 8 05/16/199002/25 Encounters Date Type Department Care Team Description 09/13/2023 Lab Requisition [facility] [phone] Unknown, Doctor from Last 3 Months Immunizations Name Administration Dates Next Due Influenza [...] Comments Blood Pressure 162/87 07/21/2022 9:21 PM VEGETABLE HANDLER Pulse 100 07/21/2022 9:21 PM VEGETABLE HANDLER Temperature 37.1 ??C (98.8 ??F) 07/21/2022 8:51 PM CS T Respiratory Rate 18 07/21/2022 8:51 PM VEGETABLE HANDLER Oxygen Saturation 96% 07/21/2022 9:21 PM VEGETABLE HANDLER Inhaled Oxygen Concentration - - Weight 83.9 kg (185 lb) 07/21/2022 5:35 PM VEGETABLE HANDLER Height 175.3 cm (5' 9) 07/21/2022 5:35 PM VEGETABLE HANDLER Body Mass Index 27.32 07/21/2022 5:35 PM VEGETABLE HANDLER Plan of Treatment Health Maintenance Due [...] Additional history exists Tetanus booster 08/16/2026 08/16/2016, 1101/2007, 03/24/2007, Additional history exists Colonoscopy through age 77 05/12/203205/12, 02/04/2006 (Completed outside of [facility]) Tdap Completed 08/16/2016 Pneumococcal series for age 65+ Completed 04/24/2018, 04/11/2017, 02/14/2012, Additional history exists Goals Goal Patient Goal Type Associated Problems Recent Progress Patient-Stated? Author BLOOD PRESSURE - MAINTAINS BP less than 140/90 Blood Pressure No Rudy Riddle MD Procedures Procedure Name Priority Date/Time Associated Diagnosis Comments LAB TRACKING EVENT Routine 09/13/2023 11 :00 AM CDT PATH TISSUE EXAM Routine 09/13/2023 11:0 0 AM CDT COLONOSCOPY 05/12/2022 8:51 AM VEGETABLE HANDLER LIPID PANEL W REFLEX MEASURED LDL Routine 02/16/2016 8:59 AM CDT Hyperlipidemia, unspecified hyperlipidemia type from Last 3 Months or Most Recently Relevant to Health Maintenance Results * LAB TRACKING EVENT (09/13/2023 11:00 AM CDT) Other (Other) Client Collect / Unknown 09/13/2023 11:00 AM CDT 09/13/2023 9:30 PM CDT Doctor Unknown LAB BILL ONLY [facility] [address] [place] [address], * PATH TISSUE EXAM (09/13/2023 11:00 AM CDT) Case Report Pathology Report ?Case: [id number] ? Authorizing Provider: ??Unknown, Doctor ?Collected: ? 09/13/2023 1100 ? Ordering Location: ? [facility] ?Received: ?09/14/2023 1033 ? Pathologist: ? Anson Hale MD ? Specimen: ?Right foot ? 09/16/2023 7:47 AM [facility] LABORAT[facility]-C ENTRAL LABORATORY Final Diagnosis A) FOOT, RIGHT, BIOPSY: 1. Bone with acute and chronic osteomyelitis 09/16/2023 7:47 AM [facility] Comment The specific bone that was biopsied is not provided. 09/16/2023 7:47 AM [facility] Clinical Information Right foot, assess for osteomyelitis. 09/16/2023 7:47 AM [facility] [employer] [facility]TRAL [facility] Gross Description A) Received in formalin, labeled with the patient's name and date of , is a 1.8 x 0.5 x 0.2 cm aggregate of suresh-pink soft tissue fragments admixed with pale-suresh bone. ??The specimen is submitted entirely, in toto in 1 cassette. [facility] 09/14/2023 ?? 09/16/2023 7:47 AM [facility] Microscopic Description The final diagnosis is based on microscopic examination of appropriate sections of all specimens. 09/16/2023 7:47 AM CDT [facility] LABORATORY-C ENTRAL LABORATORY Additional Information Interpreted at [facility] - [address], [place] [address] 09/16/2023 7:47 AM CDT [facility]- ENTRAL LAB[facility]ATORY Other (Right foot) 09/13/2023 11:00 AM CDT 09/14/2023 10:33 AM CDT Doctor Unknown PATHOLOGY/CYTOLOGY [facility] [address] [place] [address], [place] * COLONOSCOPY (05/12/2022 8:51 AM VEGETABLE HANDLER) 05/12/2022 8:51 AM VEGETABLE HANDLER Narrative Transcriptions Lukas West MD - 05/12/2022 9:03 AM [facility] Patient Name: Onesimo Walton Procedure Date: 05/12/2022 Gender: Male Date of : 1950 Admit Type: Inpatient Procedure: Colonoscopy Proceduralist: Lukas West MD [facility] Indications/Pre-Op Diagnosis: Anemia. Bacteremia Medications: Monitored Anesthesia Care Procedure Description: The patient had risks, benefits and alternatives explained to andgave informed consent. The patient had a stable cardiopulmonary status and judged an adequate candidate for conscious sedation. The [facility]-[id number] endoscope was passed through the anus and [...] Furthermanagement is per the primary team. Call [facility] back if any questions orconcerns. Lukas West MD 05/12/2022 9:03:39 AM This report has been signed electronically. Note Initiated On: 05/12/2022 8:51 AM Lukas West MD PROCEDURE ORD * (ABNORMAL) LIPID PANEL W REFLEX MEASURED LDL (02/16/2016 8:59 AM CDT) CHOLESTEROL,TOTAL 178 100 - 199 mg/dL 02/16/2016 11:02 AM [facility] TRIGLYCERIDES 232(H) <150 mg/dL 02/16/2016 11:02 AM [facility] HDL CHOLESTEROL 31(L) >40 mg/dL 02/16/2016 11:02 AM [facility] NON-HDL CHOLESTEROL 147(H) <145 mg/dl 02/16/2016 11:02 AM [facility] CHOL/HDL RATIO 5.74(H) <4.50 02/16/2016 11:02 AM [facility] LDL CHOLESTEROL 101 <=130 mg/dL 02/16/2016 11:02 AM CDT [facility] PATIENT STATUS FASTING 02/16/2016 11:02 AM CDT [facility] Blood BLOOD SPECIMEN / Unknown Venipuncture / Unknown 02/16/2016 8:59 AM CDT 02/16/2016 8:59 AM CDT Rudy Riddle MD CHEMISTRY [facility] [address] [place], [place] [id number] [place] [address] [address] [place] [address], [place] [phone] from Last 3 Months or Most Recently [...] Preferences, Provider to review later Care Teams Principal Product Manager Relationship Specialty Start Date End Date Rudy Riddle MD [address] [place] [address] PCP - General Family Practice 05/25/22 Casa Lucia MD [address] [facility] [address] [place] [address] Ophthalmology Ophthalmology Surgery 12/22/11 uRdy Riddle MD [address] [place] [address] Family Practice 05/07/22
--- OUTSIDE RECORDS SUMMARY | 2023-09-20 09:28 | XMS_ITS | Referral Summary ---
Author Name Unknown Organization [facility] Address [address] [place] [address] Care Team Providers Care Deputy Sheriff Bailiff Name Role Phone Elsewhere, Pcp Primary Care Provider Unavailabl e Source Comments Patient records contain information from all sites at [facility]. For routine questions regarding patient records, call [phone] during business hours, M-F 8:00 AM - 5:00 PM Central Time. Record requests for emergency care only can be directed to [phone] at any time.[facility] Encounters Date Type Department Care Team Description 09/13/2023 Documentation Division of Nephrology and Hypertension in [place], [place] [address] [place] [address] Haseeb Menon Jr., D.OFei 09/13/2023 Orders Only Division of Nephrology and Hypertension in [place], [place] [address] [place] [address] Haseeb Menon Jr., D.O. 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 09/09/2023 Orders Only Division of Nephrology and Hypertension in [place], [place] [address] [place] [address] Haseeb Menon Jr., D.O. 09/09/2023 Clinical Communication Division of Nephrology and Hypertension in [place], [place] [address] [place] [address] Haseeb Menon Jr., D.O. Hypertension 08/16/2023 Documentation Division of Nephrology and Hypertension, [facility], in [place], [place] [address] [place] [address] Ishan Guardado APRN C.N.P., M.S.N. 08/16/2023 Orders Only Division of Nephrology and Hypertension, [facility], in [place], [place] [address] [place] [address] Ishan Guardado APRN, C.N.P., M.S.N. 08/15/2023 Clinical Communication Division of Nephrology and Hypertension in [place], [place] [address] [place] [address] Haseeb Menon Jr., D.O. New Symptoms 08/09/2023 Documentation Division of Nephrology and Hypertension in [place], [place] [address] [place] [address] Haseeb Menon Jr., D.O. 08/09/2023 Orders Only Division of Nephrology and Hypertension in [place], [place] [address] [place] [address] Haseeb Menon Jr., D.O. from Last 3 Months Allergies Active Allergy Reactions Criticality Noted Date Comments Gabapentin Other (see comments) Medium 08/04/2020 Dizzy, memory issue Morphine Itching,Rash Medium 02/14/2012 itchy Pregabalin Anaphylaxis High 02/16/2017 swell Uhqwtpa-Yki-Oco Reductase Inhibitors Myalgia Low 02/13/2014 Medications Medication [...] ONE CAPSULE BY MOUTH EVERY DAY FDC 2 Active allopurinoL (ZYLOPRIM) 100 mg tablet [...] 04/21/2018 Restless Leg Syndrome 01/12/2018 Atherosclerosis Of Crow Ar 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 08/08/2017 Hyperlipidemia 07/22/2017 Ulcer Leg Left 04/19/2017 Ulcer Toe Left 04/19/2017 Atherosclerosis Of Crow Ar teries Of Left Leg With Ulceration Of Unspecified Site 04/19/2017 Peripheral Arterial Disease 02/16/2017 Hypertension NOS 02/16/2017 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 Never 03/24/2021 Do [...] PHQ-2 Score 0 10/20/2018 [facility] of Occupat ional Health - Occupational [...] your living situation today? I have a [facility] place to live 10/26/2022 Education Answer Date Recorded What is the highest level of school you have completed or the highest degree you have received? 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/2021 8:13 PM GAME BREEDING FARM MANAGER Gender Identity Male 08/31/2019 2:40 PM [...] AM CDT Clinical Communication Virtual Review in [place], [place] [address] [place] [address] 10/11/2023 1:30 PM CDT Comprehensive Visit [facility] in [address] [address] Dallas Andrade APRN, C.N.P., M.S.N. [address] [place] [phone] Medical Devices Implanted Type Area Project Development Leader Device Identifier Shelf Expiration Date Model / Serial / Lot Patch Vasc Bovine.08cm X 8cm - Flores [id number] Implanted:Qty: 1 on 04/04/2017 Mesh or Patch Other/Legacy - See Implant Description Synovis Description:Device Manufactu rer - Synovis. Body Location - Other. Vascular. Device Status Text - [id number]. Ocular Lens-10/29/2007 Implanted:10/28 by Nato Dougherty APRN, C.N.P., R.N. (Quantity not on file) Ocular Lens Bilateral: Eye Description:Cataract extract ion and insertion of intraocular lens 06/22/2016 09:27 - NATO DOUGHERTY APRN CONDUCTOR PULLMAN bilateral Conversions - Default Historical Implant Device [...] 6mm X 29mm X 135cm - Flores [id number] Implanted:Qty: 1 on 03/04/2017 Vascular Graft Beaver Description:Device Manufactu rer - [employer]. Device Status Text - [id number]. Stent Vbx [id number] - Flores [id number] Implanted:Qty: 1 on 03/04/2017 Vascular Graft Other/Legacy - See Implant Description Beaver Description:Device Manufactu rer - [employer] Body Location - Other. n/a. Device Status Text - [id number]. Stent Vbx [id number] - Flores [id number] Implanted:Qty: 1 on 03/04/2017 Vascular Graft Other/Legacy - See Implant Description Beaver Description:Device Manufactu rer - [employer] Body Location - Other. n/a. Device Status Text - [id number]. Stent Zilver Ptx 6mm X 40mm - Flores [id number] Implanted:Qty: 1 on 04/04/2017 Vascular Stent Other/Legacy - See Implant Description [employer]. Description:Device Manufactu [employer] 2000 - Theorem. Body Location - Other. Left. Device Status Text - [id number]. Stent Zilver Ptx 6mm X 60mm - Flores [id number] Implanted:Qty: 1 on 04/04/2017 Vascular Stent Other/Legacy - See Implant Description [employer]. Description:Device Manufactu [employer] 2000 - Theorem. Body Location - Other. Left. Device Status Text - [id number]. Stent Zilver Ptx 6mm X 80mm - Flores [id number] Implanted:Qty: 1 on 08/31/2017 Vascular Stent Right: Other/Legacy - See Implant Description [employer]. / [id number] / Description:Device Manufactu rer - Theorem. Body Location - Right. Device Status Text - [id number]. Stent Zilver Ptx 6mm X 40mm - Flores [id number] Implanted:Qty: 1 on 08/31/2017 Vascular Stent Right: Other/Legacy - See Implant Description Theorem Inc. / [id number] / Description:Device Manufactu rer - Theorem. Body Location - Right. Device Status Text - [id number]. Stnt Innova Otw [id number] - [id number] Implanted:Qty: 1 on 04/18/2018 by Kemar Velásquez M.B.B.S. at [facility] Vascular Stent [employer] 05/23/2020 [id number] / / [id number] Stnt Innova Otw [id number] - [id number] Implanted:Qty: 1 on 05/11/2019 by Kemar Velásquez M.B.B.S. 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 (HCC) CT ABDOMEN PELVIS WITHOUT IV CONTRAST RAD - Routine (most inpatients and all outpatients) 05/27/2022 4:19 PM GAME BREEDING FARM MANAGER LIPID PANEL, S Routine 02/10/2021 8:27 AM CDT Peripheral Arterial Disease (HCC) Diabetes Mellitus Type 2 With Other Circulatory Complication Hyperglycemic (HCC) 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) CT CHEST WITHOUT IV CONTRAST RAD - Routine (most inpatients and all outpatients) 05/07/2020 9:29 PM GAME BREEDING FARM MANAGER from Last 3 Months or Most Recently [...] 9:35 AM CDT 02/17/2023 11:01 AM CDT [facility] LAB - 02/17/2023 4:02 PM CDT Specimen Information: Specimen ID: [id number] Specimen Type: Blood Specimen Collection Start Date: 02/17/2023 ??9:35 AM Specimen Received Date: 02/17/2023 11:01 AM Specimen ID: [id number] Specimen Type: Blood Specimen Collection Start Date: 02/17/2023 ??9:35 AM Specimen Received Date: 02/17/2023 ??3:35 PM Haseeb Menon Jr., D.O. LAB BLOOD AD D-ON [facility] [address] [facility] [place] [address] [place] [address] [facility] [address] [place] [address] * HCV Ab Scrn w/Reflex to HCV PCR, Serum (02/17/2023 9:35 AM CDT) HCV Ab Screen, S Negative Negative 02/18/20 3:35 PM CDT MKTO Comment: Biotin has been identified by the certified registered dental assistant as a potential interfering substance. Higher concentrations of biotin may be found in multivitamins, hair/nail supplements, and workout supplements. If the result does not match clinical observations, repeat testing after patient refrains from the use of supplements for at least 12 hours. Blood (Blood, Venous) 02/17/2023 9:35 AM CDT 02/17/2023 2:20 PM CDT [facility] - 02/17/2023 3:35 PM CDT Specimen Information: Specimen ID: [id number] Specimen Type: Blood Specimen Collection Start Date: 02/17/2023 ??9:35 AM Specimen Received Date: 02/17/2023 ??2:20 PM Specimen ID: [id number] Specimen Type: Blood Specimen Collection Start Date: 02/17/2023 ??9:35 AM Specimen Received Date: 02/17/2023 ??2:16 PM Haseeb Menon Jr., D.O. LAB MICROBIO LOGY - BLOOD ORDERABLES Performing Organization Address [facility] Co de Phone Number [facility] [address] [place] [address], [facility] MKTO [facility] in [place] [address] [place] [address] * (ABNORMAL) Albumin, Random, Urine (02/17/2023 9:26 AM CDT) Microalbumin 895.0 mg/L 02/17/2023 1:53 PM CDT [facility] Creatinine 42 mg/dL 02/17/2023 12:50 PM CDT [facility] Albumin/Creatinin e Ratio 2131(H) <17 mg/g 02/17/2023 1:53 PM CDT [facility] Urine (Urine, Voided) 02/17/2023 9:26 AM CDT 02/17/2023 11:00 AM CDT Haseeb Menon Jr., D.O. LAB URINE OR DERABLES Performing Organization Address [facility] Co de Phone Number [facility] [address] [place] [address], [place] [facility] [place] [address] [place] [address] * (ABNORMAL) Hemoglobin A1c (11/25/2022 2:09 PM [...] Jr., D.O. LAB BLOOD AD D-ON [facility] [address] [place] [address], [facility] OW[facility] [place] [address] [place] [address] * (ABNORMAL) Lipid Panel (02/10/2021 8:27 AM [...] AM CDT Kemar Reyes LAB BLOOD ADD-ON [facility] [address] [place] [address], [place] DTL [facility] [address] [place] [address] from Last 3 Months or Most Recently Relevant to Health Maintenance Advance Directives For more information, please contact: [phone] * Full Code (Latest Code Status on [...] Answer Comments Full Code: Discussed Care Teams Deputy Sheriff Bailiff Relationship Specialty Start Date End Date Elsewhere, Pcp PCP - General Family Medicine 01/29/20
--- OUTSIDE RECORDS SUMMARY | 2023-09-20 09:28 | XMS_ITS | Continuity of Care Document ---
Author Name Unknown Organization [facility] Address [address] [place] [address] Phone Care Team Providers Care Technical Maintenance Technician Name Role Phone Dot Warner Unavailable Unavailable Medications Medication Instructions Dosage Effective Dates (start - stop) Status Comments AMPICILLIN-SULBACTAM (unknown strength) Not Available - Active MINOCYCLINE HCL (unknown strength) Not Available - Active Procedures Procedure Date Office/Outpatient Visit,Est, Mod 2022 OFFICE/OUTPATIENT VISIT EST Phone Office/Outpatient Visit,Est, Mod 2022 Followup Hospital Care, [facility] 2021 Advance Directives Directive Yes / No Effective Date File Name No Information Encounters Encounter Description Practice Location Reason(s) For Visit Diagnoses Date Provider Providers Copied on Encounter [facility], [address], [place], [place], [id number] , [place] tel: [phone] [facility] - [facility] No Information 3 Kindra Chris. [facility], [address] [place] [address] [address], [place], [address], [place]. tel: [phone] Office/Outpa tient Visit,Est, Mod [facility], [address], [place], [place], [id number] , [place] tel: [phone] [facility] - [facility] Spinal stenosis, lumbar region with neurogenic claudication 3 Camille Bob. [facility], [address] [place] [address], [address], [place], [address], [place]. tel: [phone] Referring Provider: Lisbeth Thomas, [facility] [address], [address], [place], [address]. [phone] OFFICE/OUTPA TIENT VISIT EST Phone [facility], [address], [place], [place], [id number] , [place] tel:[phone] [facility] No Information 3 Obrien Lisbeth. [facility], [address], [address], [place], [address], [place]. tel:[phone] Referring Provider: Lisbeth Thomas, [facility] [address], [address], [place], [address]. tel:[phone] Office/Outpa tient Visit,Est, Mod [facility], [address], [place], [place], [id number] , [place] [phone] [facility] Low back pain, unspecifiedOther specified soft tissue disorders 3 Obrien Lisbeth. [facility], [address], [address], [place], [address], [place]. tel:[phone] Referring Provider: Lisbeth Thomas, [facility] [address], [address], [place], [address]. tel:[phone] Followup Hospital Care, Moderate [facility], [address], [place], [place], [id number] , [place] [phone] [facility] No Information 2 Nicolasana paula Velez. [facility], [address], [address], [place], [address], [place]. tel:[phone] Referring Provider: Rudy Riddle, [facility] [address], [address]. tel:[phone] Family History Family Member Type Diagnosis Age At Onset No Information Payers Payer name Insurance type Covered libertarian ID Authorjaimea [id number](s) [id number] Medicare [facility] [id number] Social History Type Description Quantity Date [...]
--- OUTSIDE RECORDS SUMMARY | 2023-09-20 09:28 | XMS_ITS ---
Author Name Unknown Organization [facility] Address [address] [place] [address] Care Team Providers Care Passenger Rate Clerk Name Role Phone Unavailable Unavailable Unavailable Surgery Details Not on file Complications Check Surgery Details section. Procedure Estimated Blood Loss Check Surgery Details section. Procedure Findings Check Surgery Details section. Procedure Specimens Taken Check Surgery Details section.
--- OUTSIDE RECORDS SUMMARY | 2023-09-20 09:29 | XMS_ITS | Encounter Summary ---
Author Name Unknown Organization [facility] Address [address] [place] [address] Care Team Providers Care Overhead Foreman Name Role Phone Elsewhere, Pcp Primary Care Provider Unavailabl e Encounter Details Date Type Department Care Team (Late st Contact Info) Description 06/17/2023 Orders Only Division of Nephrology and Hypertension in [place], [place] [address] [place] [address] Haseeb Menon Jr., D.O. [address] [place] [address] Social History Tobacco Use Types Packs/Day Years [...] often do you attend holiness or advent serv ices? Never 03/24/2021 Do [...] Answer Date Recorded PHQ-2 Score 0 10/20/2018 [facility] of Occupat ional Health - [...] your living situation today? I have a [facility] place to live 10/26/2022 Education Answer Date Recorded What is the highest level of school you have completed or the highest degree you have received? 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 [address] [place] [address] documented as of this encounter Visit Diagnoses Not on filedocumented in this encounter Additional Health Concerns Assessment Noted Time PHQ-9 Depression Total Score: 3 01/04/20 18 10:38 AM CDT documented as of this encounter Care Teams Overhead Foreman Relationship Specialty Start Date End Date Elsewhere, Pcp PCP - General Family Medicine 01/29/20 documented as of this encounter
--- OUTSIDE RECORDS SUMMARY | 2023-09-20 09:29 | XMS_ITS | Encounter Summary ---
Author Name Unknown Organization [facility] Address [address] [place] [address] Care Team Providers Care Institutional Commodity Analyst Name Role Phone Elsewhere, Pcp Primary Care Provider Unavailabl e Encounter Details Date Type Department Care Team (Late st Contact Info) Description 09/09/2023 Documentation Division of Nephrology and Hypertension in [place], [place] [address] [place] [address] Haseeb Menon Jr., D.O. [address] [place] [address] Social History Tobacco Use Types Packs/Day Years [...] How often do you attend confucianism or sabianist serv ices? Never 03/24/2021 Do [...] your living situation today? I have a [facility] place to live 10/26/2022 Education Answer Date Recorded What is the highest level of school you have completed or the highest degree you have received? 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/2021 8:13 PM CLOTH BLEACHING RANGE BACK TENDER Gender Identity Male 08/31/2019 2:40 PM CDT Sexual Orientation Straight 08/31/2019 2: 40 PM CDT documented as of this encounter Progress Notes * Haseeb Menon Jr., D.Jayde. - 09/09/2023 5:44 PM CDT Care coordination His BP has been high 200 -210 systolic, no weight gain. Left him a message to increase Lisinopril to 40 mg per day and new RX for minoxidil 2.5 mg per day sent to pharmacy. He will be seen in Home clinic next . documented in this encounter Plan of Treatment Upcoming Encounters Date Type Department Care Team (Latest Contact Info) Description 10/06/2023 10:30 AM CDT Clinical Communication Virtual Review in [place] [address] [place] [address] 10/11/2023 1:30 PM CDT Comprehensive Visit [facility] in [place], [place] [address] [place] [address] Dallas Andrade, JULIÁN, C.N.P., M.S.N. [address] [place] [address] documented as of this encounter Visit Diagnoses Not on filedocumented in this encounter Additional Health Concerns Assessment Noted Time PHQ-9 Depression Total Score: 3 01/04/20 18 10:38 AM CDT documented as of this encounter Care Teams Institutional Commodity Analyst Relationship Specialty Start Date End Date Elsewhere, Pcp PCP - General Family Medicine 01/29/20 documented as of this encounter
--- OUTSIDE RECORDS SUMMARY | 2023-09-20 09:29 | XMS_ITS | Encounter Summary ---
Author Name Unknown Organization [facility] Address [address] [place] [address] Care Team Providers Care Egg Breaking Machine Operator Name Role Phone Elsewhere, Pcp Primary Care Provider Unavailabl e Encounter Details Date Type Department Care Team (Late st Contact Info) Description 09/09/2023 Orders Only Division of Nephrology and Hypertension in [place], [place] [address] [place] [address] Haseeb Menon Jr., D.O. [address] [place] [address] Social History Tobacco Use Types Packs/Day Years [...] How often do you attend taoist or sikhism serv ices? Never 03/24/2021 Do [...] your living situation today? I have a [facility] place to live 10/26/2022 Education Answer Date Recorded What is the highest level of school you have completed or the highest degree you have received? 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 [address] [place] [phone] documented as of this encounter Visit Diagnoses Not on filedocumented in this encounter Additional Health Concerns Assessment Noted Time PHQ-9 Depression Total Score: 3 01/04/20 18 10:38 AM CDT documented as of this encounter Care Teams Egg Breaking Machine Operator Relationship Specialty Start Date End Date Elsewhere, Pcp PCP - General Family Medicine 01/29/20 documented as of this encounter
--- OUTSIDE RECORDS SUMMARY | 2023-09-20 09:29 | XMS_ITS | Encounter Summary ---
Author Name Unknown Organization [facility] Address [address] [place] [address] Care Team Providers Care Arc Cutter Name Role Phone Elsewhere, Pcp Primary Care Provider Unavailabl e Reason for Visit * Reason Onset Date Comments New Symptoms 08/15/2023 Encounter Details Date Type Department Care Team (Latest Contact Info) Description 08/15/2023 Clinical Communication Division of Nephrology and Hypertension in [place], [place] [address] [place] [address] Haseeb Menon Jr., D.O. [address] [place] [address] New Symptoms Social History Tobacco Use Types [...] often do you attend hinduism or buddhism serv ices? 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 Menon), during which she [...] I spoke with Uriel, Pharmacist, in our [facility]. Per his medication database, a [...] yes. The following references were used: other [facility] Pharmacist . * Telephone Encounter - Chloe Lazo - 08/15/2023 10:43 AM CDT Caller is: : Authorization YES Preferred Communication Method: [phone] Reason for call: Pt's , Siria, called [...] AM CDT Clinical Communication Virtual Review in [place], [place] 200 [place] [address] 10/11/2023 1:30 PM CDT Comprehensive Visit [facility] in [place], [place] [address] [place] [phone] Dallas Andrade, JULIÁN, C.N.P., M.S.N. [address] [place] [phone] documented as of this encounter Visit Diagnoses Not on filedocumented in this encounter Additional Health Concerns Assessment Noted Time PHQ-9 Depression Total Score: 3 01/04/20 18 10:38 AM CDT documented as of this encounter Care Teams Arc Cutter Relationship Specialty Start Date End Date Elsewhere, Pcp PCP - General Family Medicine 01/29/20 documented as of this encounter
--- OUTSIDE RECORDS SUMMARY | 2023-09-20 09:29 | XMS_ITS | Encounter Summary ---
Author Name Unknown Organization [facility] Address [address] [place] [address] Care Team Providers Care Plant Production Worker Name Role Phone Elsewhere, Pcp Primary Care Provider Unavailabl e Encounter Details Date Type Department Care Team (Late st Contact Info) Description 08/16/2023 Documentation Division of Nephrology and Hypertension, [facility], in [place], [place] [address] [place] [phone] Ishan Guardado, JULIÁN, C.N.P., M.S.N. [address] [place] [phone] Social History Tobacco Use Types Packs/Day Years [...] How often do you attend restoration or protestant serv ices? Never 03/24/2021 Do [...] your living situation today? I have a [facility] place to live 10/26/2022 Education Answer Date Recorded What is the highest level of school you have completed or the highest degree you have received? 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/2021 8:13 PM WAXER FLOOR Gender Identity Male 08/31/2019 2:40 PM CDT [...] AM CDT Clinical Communication Virtual Review in [place], [place] [address] [place] [address] 10/11/2023 1:30 PM CDT Comprehensive Visit [facility] in [place], [place] [address] [place] [phone] Dallas Andrade APRN, CFeiN.P., M.S.N. [address] [place] [phone] documented as of this encounter Visit Diagnoses Not on filedocumented in this encounter Additional Health Concerns Assessment Noted Time PHQ-9 Depression Total Score: 3 01/04/20 18 10:38 AM CDT documented as of this encounter Care Teams Plant Production Worker Relationship Specialty Start Date End Date Elsewhere, Pcp PCP - General Family Medicine 01/29/20 documented as of this encounter
--- OUTSIDE RECORDS SUMMARY | 2023-09-20 09:29 | XMS_ITS | Encounter Summary ---
Author Name Unknown Organization [facility] Address [address] [place] [address] Care Team Providers Care Broom Worker Name Role Phone Elsewhere, Pcp Primary Care Provider Unavailabl e Reason for Visit * Reason Onset Date Comments Hypertension 09/09/2023 Encounter Details Date Type Department Care Team (Latest Contact Info) Description 09/09/2023 Clinical Communication Division of Nephrology and Hypertension in [place], [place] [address] [place] [address] Haseeb Menon Jr., D.O. [address] [place] [address] Hypertension Social History Tobacco Use Types Packs/Day Years [...] How often do you attend episcopal or alevism serv ices? Never 03/24/2021 Do [...] 0 10/20/2018 [facility] - Occupational Stress Questionnaire [...] your living situation today? I have a [facility] place to live 10/26/2022 Education Answer Date Recorded What is the highest level of school you have completed or the highest degree you have received? 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 YES -- Patient is noticing HIGH blood pressure readings today. Should adjustments be made? documented in this encounter Plan of Treatment Upcoming Encounters Date Type Department Care Team (Latest Contact Info) Description 10/06/2023 10:30 AM CDT Clinical Communication Virtual Review in [place], [place] [address] [place] [address] 10/11/2023 1:30 PM CDT Comprehensive Visit [facility] in [place], [place] [address] [place] [address] Dallas Andrade, JULIÁN, C.N.P., M.S.N. [address] [place] [address] documented as of this encounter Visit Diagnoses Not on filedocumented in this encounter Additional Health Concerns Assessment Noted Time PHQ-9 Depression Total Score: 3 01/04/20 18 10:38 AM CDT documented as of this encounter Care Teams Broom Worker Relationship Specialty Start Date End Date Elsewhere, Pcp PCP - General Family Medicine 01/29/20 documented as of this encounter
--- OUTSIDE RECORDS SUMMARY | 2023-09-20 09:29 | XMS_ITS | Encounter Summary ---
Author Name Unknown Organization [facility] Address [address] [place] [address] Care Team Providers Care Injection Molding Machine Tender Name Role Phone Elsewhere, Pcp Primary Care Provider Unavailpaola e Encounter Details Date Type Department Care Team (Late st Contact Info) Description 08/19/2016 Historical Ophthalmology [facility] Chalo Holland Jr., M.D. 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 [address] [place] [phone] documented as of this encounter Visit Diagnoses Not on filedocumented in this encounter Additional Health Concerns Infection Onset Date Last Indicated Resolved Time COVID19 Pending 05/08/2020 05/08/2020 05/08/2020 2 :44 PM FLOWER SHOP LABORER/DESIGNER Assessment Noted Time PHQ-9 Depression Total Score: 7 08/17/19 17 9:01 AM CDT documented as of this encounter Care Teams Injection Molding Machine Tender Relationship Specialty Start Date End Date Elsewhere, Pcp PCP - General Family Medicine 01/29/20 documented as of this encounter
--- OUTSIDE RECORDS SUMMARY | 2023-09-20 09:29 | XMS_ITS | Encounter Summary ---
Author Name Unknown Organization [facility] Address [address] [place] [address] Care Team Providers Care Resolution Analyst Name Role Phone Elsewhere, Pcp Primary Care Provider Unavailabl e Encounter Details Date Type Department Care Team (Late st Contact Info) Description 08/09/2023 Documentation Division of Nephrology and Hypertension in [place], [place] [address] [place] [address] Haseeb Menon Jr., D.O. [address] [place] [address] Social History Tobacco Use Types Packs/Day Years [...] How often do you attend anabaptist or anglican serv ices? Never 03/24/2021 Do [...] PHQ-2 Score 0 10/20/2018 [facility] of Occupat ional Health - Occupational [...] situation today? I have a [facility] place to live 10/26/2022 Education Answer Date Recorded What is the highest level of school you have completed or the highest degree you have received? 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 - 08/09/2023 3:25 PM CDT Care coordination-home dialysis clinic note Please see the [facility] sure scripts and Care everywhere note [...] AM CDT Clinical Communication Virtual Review in [place], [place] 200 [place] [address] 10/11/2023 1:30 PM CDT Comprehensive Visit [facility] in [place], [place] [address] [place] [phone] Dallas Andrade, JULIÁN, C.N.P., M.S.N. [address] [place] [phone] documented as of this encounter Visit Diagnoses Not on filedocumented in this encounter Additional Health Concerns Assessment Noted Time PHQ-9 Depression Total Score: 3 01/04/20 18 10:38 AM CDT documented as of this encounter Care Teams Resolution Analyst Relationship Specialty Start Date End Date Elsewhere, Pcp PCP - General Family Medicine 01/29/20 documented as of this encounter
--- OUTSIDE RECORDS SUMMARY | 2023-09-20 09:29 | XMS_ITS | Encounter Summary ---
Author Name Unknown Organization [facility] Address [address] [place] [address] Care Team Providers Care Drapery Inspector Name Role Phone Elsewhere, Pcp Primary Care Provider Unavailabl e Encounter Details Date Type Department Care Team (Late st Contact Info) Description 09/13/2023 Documentation Division of Nephrology and Hypertension in [place], [place] [address] [place] [address] Haseeb Menon Jr., D.O. [address] [place] [address] Social History Tobacco Use Types Packs/Day Years [...] week 03/24/2021 How often do you attend zoroastrian or restorationist serv ices? Never 03/24/2021 Do you belong to any clubs o r organizations such as zoroastrian groups, unions, fraternal or athletic groups, or [...] today? I have a [facility] place to live 10/26/2022 Education Answer Date Recorded What is the highest level of school you have completed or the highest degree you have received? 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 - 09/13/2023 9:30 AM CDT Care coordination-dialysis visit: Please see the sure scripts tab, in Care everywhere or the documents tab regarding his full dialysis notes from the [facility] Dialysis home program. Fair amount of confusion once again today. There had been challenges recently with his dose of Mirapex, this was found to be excessive by the pharmacy, and we stopped this agent, dramatically improving his mental status. However over the past few weeks his blood pressure has become quite high. There was then confusion as to what medication he was taking, and lisinopril was reflected as 20 mg daily in his [facility] record however he was actually taking none. We initiated lisinopril at 40 mg, 1st dose taken on the . His blood pressure was quite low this morning and at our visit. Although yesterday I note his systolic pressures were in the 170s and 180s at home. We will be asking for all the pills to be brought in along with them next week when he comes for his anemia management here in clinic. I will cut his lisinopril from 40 mg daily to 20 mg orally dailyand have canceled the prescription for the minoxidil. [facility] is seeing [facility], he has a foot wound, which appears to be making good progress. He has been free of fevers and chills he is off antibiotics and the corticosteroids have been stopped. relates that he has witnessed episodes of apnea. I have placed a consult for the sleep center. Additionally, he is on iron supplementation and has had very low iron levels. He is currently receiving 200 mg of IV Venofer twice monthly. We will continue this for now until his next set of chemistries. His hemoglobin is improving. From an adequacy perspective his KT/V over V is 1.76. He is complaining of more restless legs now that the Mirapex was stopped. We run the risk of multiple providers prescribing for him, we will continue to visit with him twicemonthly in the home clinic and do our best to mitigate some of these challenges. We did a care plan in his chair side today, he has still a full code in his would be his decision maker if he was unable. Has multiple medical substantial complications. His diabetes has been erratic lately on the background of a dysfunctional pump, this has been rectified. documented in this encounter Plan of Treatment Upcoming Encounters Date Type Department Care Team (Latest Contact Info) Description 10/06/2023 10:30 AM CDT Clinical Communication Virtual Review in [place], [place] 200 [place] [address] 10/11/2023 1:30 PM CDT Comprehensive Visit [facility] in [address] [phone] Dallas Andrade, JULIÁN, C.N.P., M.S.N. [address] [place] [phone] documented as of this encounter Visit Diagnoses Not on filedocumented in this encounter Additional Health Concerns Assessment Noted Time PHQ-9 Depression Total Score: 3 01/04/20 18 10:38 AM CDT documented as of this encounter Care Teams Drapery Inspector Relationship Specialty Start Date End Date Elsewhere, Pcp PCP - General Family Medicine 01/29/20 documented as of this encounter
--- OUTSIDE RECORDS SUMMARY | 2023-09-20 09:29 | XMS_ITS | Encounter Summary ---
Author Name Unknown Organization [facility] Address [address] [place] [address] Care Team Providers Care First Calender Worker Name Role Phone Elsewhere, Pcp Primary Care Provider Unavailabl e Reason for Referral * Outpatient (Routine) - Authorized Specialty Diagnoses / Procedures Referred By Robi hong Referred To Contact Sleep Medicine Diagnoses Atherosclerosis Of [place] Ar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 (HCC) Diabetes Mellitus Type 2 With Other Circulatory Complication (HCC) Anemia Of Chronic Renal Disease Sleep Apnea Haseeb Menon Jr., D.OFei [address] [place] [address] [facility] Referral ID Status Reason Start Date Expiration Date Visits Requested Visits Authorized [id number] Authorized Specialty Services Required 09/13/2023 03/14/2025 1 1 Encounter Details Date Type Department Care Team (Latest Contact Info) Description 09/13/2023 Orders Only Division of Nephrology and Hypertension in [place], [place] [address] [place] [address] Haseeb Menon Jr., D.OFei [address] [place] [phone] Atherosclerosis Of [place] Ar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 (HCC) (Primary Dx); Diabetes Mellitus Type 2 With Other Circulatory Complication (HCC); Anemia Of Chronic Renal Disease; Sleep Apnea Social History Tobacco Use Types Packs/Day Years [...] How often do you attend holiness or jewish serv ices? 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 [address] [place] [phone] Scheduled Referrals Name Type Priority Associated Diagnoses Orde r Schedule Sleep Medicine - General consult (clinic) Outpatient Referral Routine Atherosclerosis Of [place] Ar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 (HCC) Diabetes Mellitus Type 2 With Other Circulatory Complication (HCC) Anemia Of Chronic Renal Disease Sleep Apnea Expected: 09/13/2023, Expires: 12/12/2024 documented as of this encounter Visit Diagnoses Diagnosis Atherosclerosis Of [place] Ar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 (HCC)- Primary Diabetes Mellitus Type 2 With Other Circulatory Complication (HCC) Anemia Of Chronic Renal Disease Sleep Apnea documented in this encounter Additional Health Concerns Assessment Noted Time PHQ-9 Depression Total Score: 3 01/04/20 18 10:38 AM CDT documented as of this encounter Care Teams First Calender Worker Relationship Specialty Start Date End Date Elsewhere, Pcp PCP - General Family Medicine 01/29/20 documented as of this encounter
--- OUTSIDE RECORDS SUMMARY | 2023-09-20 09:29 | XMS_ITS | Encounter Summary ---
Author Name Unknown Organization [facility] Address [address] [place] [address] Care Team Providers Care Personal Loan Specialist Name Role Phone Elsewhere, Pcp Primary Care Provider Unavailabl e Encounter Details Date Type Department Care Team (Late st Contact Info) Description 08/09/2023 Orders Only Division of Nephrology and Hypertension in [place], [place] [address] [place] [address] Haseeb Menon Jr., D.O. [address] [place] [address] Social History Tobacco Use Types Packs/Day Years [...] How often do you attend baptist or samaritan serv ices? 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 [address] [place] [phone] documented as of this encounter Visit Diagnoses Not on filedocumented in this encounter Additional Health Concerns Assessment Noted Time PHQ-9 Depression Total Score: 3 01/04/20 18 10:38 AM CDT documented as of this encounter Care Teams Personal Loan Specialist Relationship Specialty Start Date End Date Elsewhere, Pcp PCP - General Family Medicine 01/29/20 documented as of this encounter
--- OUTSIDE RECORDS SUMMARY | 2023-09-20 09:29 | XMS_ITS | Encounter Summary ---
Author Name Unknown Organization [facility] Address [address] [place] [address] Care Team Providers Care Take Away Man Name Role Phone Elsewhere, Pcp Primary Care Provider Unavailabl e Encounter Details Date Type Department Care Team (Late st Contact Info) Description 08/16/2023 Orders Only Division of Nephrology and Hypertension, [facility], in [place], [place] [address] [place] [address] Ishan Guardado, JULIÁN, C.N.P., M.S.N. [address] [place] [address] Social History Tobacco Use Types Packs/Day Years [...] your living situation today? I have a [facility] place to live 10/26/2022 Education Answer Date Recorded What is the highest level of school you have completed or the highest degree you have received? 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 [address] [place] [phone] documented as of this encounter Visit Diagnoses Not on filedocumented in this encounter Additional Health Concerns Assessment Noted Time PHQ-9 Depression Total Score: 3 01/04/20 18 10:38 AM CDT documented as of this encounter Care Teams Take Away Man Relationship Specialty Start Date End Date Elsewhere, Pcp PCP - General Family Medicine 01/29/20 documented as of this encounter
== END 2023-09-20 09:26 | disposition home or self-care (01) ==
LOC: WOUND 09:25
PROVIDERS: PCP Family Medicine; Visit Provider Nurse Practitioner Family
DX: E11.621 Type 2 diabetes mellitus with foot ulcer (principal); L97.518 Non-pressure chronic ulcer of other part of right foot with other specified severity; E11.22 Type 2 diabetes mellitus with diabetic chronic kidney disease; N18.5 Chronic kidney disease, stage 5; Z96.41 Presence of insulin pump (external) (internal)
CPT/HCPCS: 11042

== ENCOUNTER 2023-09-21 10:15 | Outpatient (CLI) | payer MEDICARE, BC, SELFPAY ==
--- NOTE | 2023-09-21 10:15 | MR_ITS ---
Patient: BRANDT MULLER Facility:?[facility] Patient ID:?[id number] Site Patient ID:?[id number]. Site :?[id number] Study:?MRI-Extremity Right FOOT OSTEO-09/21/2023 11:38:36 AM Ordering Physician:SUNIL LEWIS Final Report: EXAM: MRI OF THE RIGHT FOOT, WITHOUT CONTRAST CLINICAL INDICATION: Nonhealing wound. COMPARISON PLAIN FILMS: 08/16/2023. COMPARISON CROSS-SECTIONAL IMAGING STUDIES: 06/15/2023 MRI. TECHNICAL: Axial, sagittal and coronal T1, PD and STIR images. FINDINGS: SOFT TISSUES JOINTS AND BONES: Ulceration at the plantar and medial margin of the 1st MTP joint region has progressed in the interval. The soft tissue thickening abuts the tibial sesamoid. There is new diffuse fatty marrow replacement on the T1 weighted images in the tibial sesamoid. Findings are consistent with osteomyelitis. There is a large joint effusion and synovitis in the 1st MTP joint which have significantly progressed. Findings are worrisome for septic arthritis. There is new fatty marrow replacement in the plantar subchondral region of the 1st metatarsal head and base of the proximal phalanx at the plantar margin. Although findings could be due to reactive changes from advanced osteoarthritis, findings in context with the progressive changes, additional foci of osteomyelitis can not be excluded. Partial amputation of the 3rd and 4th rays at the distal metatarsal diaphysis. No adjacent osteomyelitis. Degenerative changes in multiple joints of the midfoot. No fractures are evident. No evidence for avascular necrosis. TENDONS AND MUSCLES: No tenosynovitis. Diffuse muscular atrophy and edema. IMPRESSION: 1. Progressive ulceration at the plantar and medial margin of the 1st MTP joint with new diffuse fatty marrow replacement in the tibial sesamoid consistent with osteomyelitis. 2. Significant progression of the 1st MTP joint effusion and synovitis. Although findings could be due to osteoarthritis, findings are worrisome for septic arthritis. 3. Marrow changes in the head of the 1st metatarsal and base of the proximal phalanx could be due to osteoarthritis, however findings are worrisome for additional foci of osteomyelitis given the tibial sesamoid synovitis. 4. Partial amputation of the 3rd and 4th rays. 5. Degenerative changes in the midfoot. Dictated by Tee Rg MD @ 09/22/2023 9:59:25 AM Signed by:?Tee Rg MD @09/22/2023 9:59:25 AM (Electronic Signature)
--- OUTSIDE RECORDS SUMMARY | 2023-09-21 10:25 | XMS_ITS ---
Author Name Unknown Organization [facility] Address [address] [place] [address] Care Team Providers Care Material Loader Name Role Phone Unavailable Unavailable Unavailable Surgery Details Not on file Complications Check Surgery Details section. Procedure Estimated Blood Loss Check Surgery Details section. Procedure Findings Check Surgery Details section. Procedure Specimens Taken Check Surgery Details section.
--- OUTSIDE RECORDS SUMMARY | 2023-09-21 10:25 | XMS_ITS | Clinical Summary ---
Author Name Unknown Organization [facility] Address [place], [place] [address] Care Team Providers Care In Flight Refueling Operator Name Role Phone Casa Lucia MD Unavailable Unavailable Rudy Riddle MD Unavailable Rudy Riddle MD Primary Care Provider + Allergies Active Allergy Reactions Criticality Noted Date Comments Gabapentin Other - Describe In Comment Field Medium 08/04/2020 Dizzy, memory issue Dizzy, memory issue Morphine Itching 02/04/2010 After 3 days of use Pregabalin Anaphylaxis,Itching High 02/16/2017 swell swell Knsitjq-Jde-Ugy Reductase Inhibitors Myalgia 02/13/2014 Medications Medication Sig [...] Department Care Team Description 09/13/2023 Lab Requisition [facility] [phone] Unknown, Doctor from Last 3 Months Immunizations [...] Comments Blood Pressure 162/87 07/21/2022 9:21 PM PORCELAIN TECHNICIAN Pulse 100 07/21/2022 9:21 PM PORCELAIN TECHNICIAN Temperature 37.1 ??C (98.8 ??F) 07/21/2022 8:51 PM CS T Respiratory Rate 18 07/21/2022 8:51 PM PORCELAIN TECHNICIAN Oxygen Saturation 96% 07/21/2022 9:21 PM PORCELAIN TECHNICIAN Inhaled Oxygen Concentration - - Weight 83.9 kg (185 lb) 07/21/2022 5:35 PM PORCELAIN TECHNICIAN Height 175.3 cm (5' 9) 07/21/2022 5:35 PM PORCELAIN TECHNICIAN Body Mass Index 27.32 07/21/2022 5:35 PM PORCELAIN TECHNICIAN Plan of Treatment Health Maintenance Due Date [...] 77 05/12/203205/12, 02/04/2006 (Completed outside of [facility]) Tdap Completed 08/16/2016 Pneumococcal series for age [...] 0 AM CDT COLONOSCOPY 05/12/2022 8:51 AM PORCELAIN TECHNICIAN LIPID PANEL W REFLEX MEASURED LDL Routine 02/16/2016 8:59 AM CDT Hyperlipidemia, unspecified hyperlipidemia type from Last 3 Months or Most Recently Relevant to Health Maintenance Results * LAB TRACKING EVENT (09/13/2023 11:00 AM CDT) Other (Other) Client Collect / Unknown 09/13/2023 11:00 AM CDT 09/13/2023 9:30 PM CDT Doctor Unknown LAB BILL ONLY [facility] [address] [place] [address], * PATH TISSUE EXAM (09/13/2023 11:00 AM CDT) Case Report Pathology Report ?Case: [id number] ? Authorizing Provider: ??Unknown, Doctor ?Collected: ? 09/13/2023 1100 ? Ordering Location: ? [facility] ?Received: ?09/14/2023 1033 ? Pathologist: ? Anson Hale MD ? Specimen: ?Right foot ? 09/16/2023 7:47 AM T [facility] ENTRAL LABORATORY Final Diagnosis A) FOOT, RIGHT, BIOPSY: 1. Bone with acute and chronic osteomyelitis 09/16/2023 7:[address] Comment The specific bone that was biopsied is not provided. 09/16/2023 7:47 AM T [facility] Clinical Information Right foot, assess for osteomyelitis. 09/16/2023 7:47 AM [facility] Rdio [facility] ENTRAL LABORATORY Gross Description A) Received in formalin, labeled with the patient's name and date of , is a 1.8 x 0.5 x 0.2 cm aggregate of suresh-pink soft tissue fragments admixed with pale-suresh bone. ??The specimen is submitted entirely, in toto in 1 cassette. [facility] 09/14/2023 ?? 09/16/2023 7:47 AM T [facility] Microscopic Description The final diagnosis is based on microscopic examination of appropriate sections of all specimens. 09/16/2023 7:47 AM CDT [facility]-C ENTRAL LABORATORY Additional Information Interpreted at [facility] - [address], [place] [address] 09/16/2023 7:47 AM CDT [facility]- ENTRAL LAB[facility]AT[facility] Other (Right foot) 09/13/2023 11:00 AM CDT 09/14/2023 10:33 AM CDT Doctor Unknown PATHOLOGY/CYTOLOGY [facility] [address] [place] [address], [place] * COLONOSCOPY (05/12/2022 8:51 AM PORCELAIN TECHNICIAN) 05/12/2022 8:51 AM PORCELAIN TECHNICIAN Narrative Transcriptions Lukas West MD - 05/12/2022 9:03 AM [facility] Patient Name: Onesimo Walton Procedure Date: 05/12/2022 Gender: Male Date of : 1950 Admit Type: Inpatient Procedure: Colonoscopy Proceduralist: Lukas West MD [facility] Indications/Pre-Op Diagnosis: Anemia. Bacteremia Medications: Monitored Anesthesia Care Procedure Description: The patient had risks, benefits and alternatives explained to andgave informed consent. The patient had a stable cardiopulmonary status and judged an adequate candidate for conscious sedation. The [facility]-[id number] endoscope was passed through the anus and [...] Furthermanagement is per the primary team. Call [facility] back if any questions orconcerns. Lukas West MD 05/12/2022 9:03:39 AM This report has been signed electronically. Note Initiated On: 05/12/2022 8:51 AM Lukas West MD PROCEDURE ORD * (ABNORMAL) LIPID PANEL W REFLEX MEASURED LDL (02/16/2016 8:59 AM CDT) CHOLESTEROL,TOTAL 178 100 - 199 mg/dL 02/16/2016 11:02 AM [facility] TRIGLYCERIDES 232(H) <150 mg/dL 02/16/2016 11:02 AM [facility] HDL CHOLESTEROL 31(L) >40 mg/dL 02/16/2016 11:02 AM [facility] NON-HDL CHOLESTEROL 147(H) <145 mg/dl 02/16/2016 11:02 AM [facility] CHOL/HDL RATIO 5.74(H) <4.50 02/16/2016 11:02 AM [facility] LDL CHOLESTEROL 101 <=130 mg/dL 02/16/2016 11:02 AM CDT [facility] PATIENT STATUS FASTING 02/16/2016 11:[address] [facility] Blood BLOOD SPECIMEN / Unknown Venipuncture / Unknown 02/16/2016 8:59 AM CDT 02/16/2016 8:59 AM CDT Rudy Riddle MD CHEMISTRY [facility] [address] [place], [place] [id number] [place] [address] [address] [place] [address], [place] [phone] from Last 3 Months or Most Recently [...] Preferences, Provider to review later Care Teams In Flight Refueling Operator Relationship Specialty Start Date End Date Rudy Riddle MD [address] [place] [address] PCP - General Family Practice 05/25/22 Casa Lucia MD [address] [facility] [address] [place] [address] Ophthalmology Ophthalmology Surgery 12/22/11 Rudy Riddle MD [address] [place] [address] Family Practice 05/07/22
--- OUTSIDE RECORDS SUMMARY | 2023-09-21 10:25 | XMS_ITS | Clinical Summary ---
Author Name Unknown Organization [facility] Address [address] [place] [address] Care Team Providers Care Embedded Developer Name Role Phone Elsewhere, Pcp Primary Care Provider Unavailabl e Source Comments Patient records contain information from all sites at [facility]. For routine questions regarding patient records, call [phone] during business hours, M-F 8:00 AM - 5:00 PM Central Time. Record requests for emergency care only can be directed to [phone] at any time.[facility] Allergies Active Allergy Reactions Criticality Noted Date Comments Gabapentin Other (see comments) Medium 08/04/2020 Dizzy, memory issue Morphine Itching,Rash Medium 02/14/2012 itchy Pregabalin Anaphylaxis High 02/16/2017 swell Wacjsew-Oxo-Hyu Reductase Inhibitors Myalgia Low 02/13/2014 Medications Medication [...] TAKE ONE CAPSULE BY MOUTH EVERY DAY TOOL DIE MAKER 2 Active allopurinoL (ZYLOPRIM) 100 mg tablet [...] 04/21/2018 Restless Leg Syndrome 01/12/2018 Atherosclerosis Of [place] Ar 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 08/08/2017 Hyperlipidemia 07/22/2017 Ulcer Leg Left 04/19/2017 Ulcer Toe Left 04/19/2017 Atherosclerosis Of [place] Ar teries Of Left Leg With Ulceration Of Unspecified Site 04/19/2017 Peripheral Arterial Disease 02/16/2017 Hypertension NOS 02/16/2017 Hypertension And Chronic Kidney Disease Stage 4 09/23/2016 Overview: Hypertension (HTN) And CKD Stage 1-4 Longterm Use Of Insulin Active 09/23/2016 Overview: Longterm Use Of Insulin Active Depression Major Recurrent Moderate 06/22/2016 Overview: Depression Major Recurrent Moderate Diabetes Mellitus Type 2 Wit h Other Circulatory Complication 06/22/2016 Overview: DM2 Peripheral Neuropathy Uncontrolled Diagnosis Maintenance Updates May 2023 Encounters Date Type Department Care Team Description 09/13/2023 Documentation Division of Nephrology and Hypertension in [place], [place] [address] [place] [address] Haseeb Menon Jr., D.O. 09/13/2023 Orders Only Division of Nephrology and Hypertension in [place], [place] [address] [place] [address] Haseeb Menon Jr., D.O. Atherosclerosis Of [place] Ar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 (HCC) (Primary Dx); Diabetes Mellitus Type 2 With Other Circulatory Complication (HCC); Anemia Of Chronic Renal Disease; Sleep Apnea 09/09/2023 Documentation Division of Nephrology and Hypertension in [place], [place] [address] [place] [address] Haseeb Menon Jr. D.OFei 09/09/2023 Orders Only Division of Nephrology and Hypertension in [place], [place] [address] [place] [address] Haseeb Menon Jr., D.O. 09/09/2023 Clinical Communication Division of Nephrology and Hypertension in [place], [place] [address] [place] [address] Haseeb Menon Jr., D.O. Hypertension 08/16/2023 Documentation Division of Nephrology and Hypertension, [facility], in [place], [place] [address] [place] [address] Ishan Guardado APRN C.N.P., M.S.N. 08/16/2023 Orders Only Division of Nephrology and Hypertension, [facility], in [place], [place] [address] [place] [address] Ishan Guardado APRN, C.N.Kinza., M.S.N. 08/15/2023 Clinical Communication Division of Nephrology and Hypertension in [place], [place] [address] [place] [address] Haseeb Menon Jr., D.O. New Symptoms 08/09/2023 Documentation Division of Nephrology and Hypertension in [place], [place] [address] [place] [address] Haseeb Menon Jr., D.O. 08/09/2023 Orders Only Division of Nephrology and Hypertension in [place], [place] [address] [place] [address] Haseeb Menon Jr., D.O. from Last 3 [...] How often do you attend congregational or zoroastrianism serv ices? 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/2021 8:13 PM CONTROL ANALYST Gender Identity Male 08/31/2019 2:40 PM [...] AM CDT Clinical Communication Virtual Review in [place], [place] [address] [place] [address] 10/11/2023 1:30 PM CDT Comprehensive Visit [facility] in [place], [place] [address] [place] [phone] [place] Andrade, JULIÁN, C.N.P., M.S.N. [address] [place] [phone] Health Maintenance Due Date Last Done Comments [...] history exists Medical Devices Implanted Type Area Geophysical Laboratory Supervisor Device Identifier Shelf Expiration Date Model / Serial / Lot Patch Vasc Bovine.08cm X 8cm - Flores [id number] Implanted:Qty: 1 on 04/04/2017 Mesh or Patch Other/Legacy - See Implant Description Synovis Description:Device Manufactu rer - Synovis. Body Location - Other. Vascular. Device Status Text - [id number]. Ocular Lens-10/29/2007 Implanted:10/28 by Nato Dougherty, JULIÁN, C.N.P., R.N. (Quantity not on file) Ocular Lens Bilateral: Eye Description:Cataract extract ion and insertion of intraocular lens 06/22/2016 09:27 - [employer] ARTILLERY bilateral Conversions - Default Historical Implant Device [...] 6mm X 29mm X 135cm - Flores [id number] Implanted:Qty: 1 on 03/04/2017 Vascular Graft Kent Description:Device Manufactu rer - [employer]. Device Status Text - [id number]. Stent Vbx [id number] - Flores [id number] Implanted:Qty: 1 on 03/04/2017 Vascular Graft Other/Legacy - See Implant Description Kent Description:Device Manufactu rer - [employer] Body Location - Other. n/a. Device Status Text - [id number]. Stent Vbx [id number] - Flores [id number] Implanted:Qty: 1 on 03/04/2017 Vascular Graft Other/Legacy - See Implant Description Kent Description:Device Manufactu rer - [employer] Body Location - Other. n/a. Device Status Text - [id number]. Stent Zilver Ptx 6mm X 40mm - Flores [id number] Implanted:Qty: 1 on 04/04/2017 Vascular Stent Other/Legacy - See Implant Description [employer] Description:Device Manufactu rer - [employer]. Body Location - Other. Left. Device Status Text - [id number]. Stent Zilver Ptx 6mm X 60mm - Flores [id number] Implanted:Qty: 1 on 04/04/2017 Vascular Stent Other/Legacy - See Implant Description [employer] Description:Device Manufactu rer - [employer] Medical. Body Location - Other. Left. Device Status Text - [id number]. Stent Zilver Ptx 6mm X 80mm - Flores [id number] Implanted:Qty: 1 on 08/31/2017 Vascular Stent Right: Other/Legacy - See Implant Description [employer] / [id number] / Description:Device Manufactu rer - [employer] Medical. Body Location - Right. Device Status Text - [id number]. Stent Zilver Ptx 6mm X 40mm - Flores [id number] Implanted:Qty: 1 on 08/31/2017 Vascular Stent Right: Other/Legacy - See Implant Description [employer] / [id number] / Description:Device Manufactu [employer] - [employer] Medical. Body Location - Right. Device Status Text - [id number]. Stnt Innova Otw [id number] - [id number] Implanted:Qty: 1 on 04/18/2018 by Kemar Velásquez M.B.B.S. at [facility] Vascular Stent [employer] 05/23/2020 [id number] / / [id number] Stnt Innova Otw [id number] - [id number] Implanted:Qty: 1 on 05/11/2019 by Kemar Velásquez M.B.B.S. at [facility] Vascular Stent Left: Leg [employer] 09/05/2020 [id number] / / [id number] Procedures Procedure Name Priority Date/Time Associated Diagnosis [...] Renal Disease Acidosis Metabolic Hyperchloremic Atherosclerosis Of [place] Ar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 (HCC) CT ABDOMEN PELVIS WITHOUT IV CONTRAST RAD - Routine (most inpatients and all outpatients) 05/27/2022 4:19 PM CONTROL ANALYST LIPID PANEL, S Routine 02/10/2021 8:27 AM CDT Peripheral Arterial Disease (HCC) Diabetes Mellitus Type 2 With Other Circulatory Complication Hyperglycemic (HCC) 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) CT CHEST WITHOUT IV CONTRAST RAD - Routine (most inpatients and all outpatients) 05/07/2020 9:29 PM CONTROL ANALYST from Last 3 Months or Most Recently [...] CDT 02/17/2023 11:[address] [facility] - 02/17/2023 4:02 PM CDT Specimen Information: Specimen ID: [id number] Specimen Type: Blood Specimen Collection Start Date: 02/17/2023 ??9:35 AM Specimen Received Date: 02/17/2023 11:01 AM Specimen ID: [id number] Specimen Type: Blood Specimen Collection Start Date: 02/17/2023 ??9:35 AM Specimen Received Date: 02/17/2023 ??3:35 PM Estiven He Jr.O. LAB BLOOD AD D-ON [facility] [address] [place] [address], [facility] in [address] [place] [address] AUST [facility] - [facility] [address] [place] [address] * HCV Ab Scrn w/Reflex to HCV PCR, Serum (02/17/2023 9:35 AM CDT) Pathologist [facility] HCV Ab Screen, S Negative Negative 02/18/20 3:35 PM CDT [facility] Comment: Biotin has been identified by the tour production supervisor as a potential interfering substance. Higher concentrations of biotin may be found in multivitamins, hair/nail supplements, and workout supplements. If the result does not match clinical observations, repeat testing after patient refrains from the use of supplements for at least 12 hours. Blood (Blood, Venous) 02/17/2023 9:35 AM CDT 02/17/2023 2:20 PM CDT Narrative [facility] - 02/17/2023 3:35 PM CDT Specimen Information: Specimen ID: [id number] Specimen Type: Blood Specimen Collection Start Date: 02/17/2023 ??9:35 AM Specimen Received Date: 02/17/2023 ??2:20 PM Specimen ID: [id number] Specimen Type: Blood Specimen Collection Start Date: 02/17/2023 ??9:35 AM Specimen Received Date: 02/17/2023 ??2:16 PM Haseeb Menon Jr. DFeiO. LAB MICROBIO LOGY - BLOOD ORDERABLES [facility] [address] [place] [address], [facility] in [place] [address] [place] [address] * (ABNORMAL) Albumin, Random, Urine (02/17/2023 9:26 AM CDT) Pathologist [facility] Microalbumin 895.0 mg/L 02/17/2023 1:53 PM CDT OW[facility] Creatinine 42 mg/dL 02/17/2023 12:50 PM CDT [facility] Albumin/Creatinin e Ratio 2131(H) <17 mg/g 02/17/2023 1:53 PM CDT [facility] Urine (Urine, Voided) 02/17/2023 9:26 AM CDT 02/17/2023 11:00 AM CDT Haseeb Menon Jr., D.O. LAB URINE OR DERABLES Performing Organization Address [facility] Co de Phone Number [facility] [address] [place] [address], [place] [facility] in [place] [address] [place] [address] * (ABNORMAL) Hemoglobin A1c (11/25/2022 2:09 PM CDT) Hemoglobin A1c, B 6.2(H) 4.2 - 5.6 % 11/25/2022 4:40 PM CDT OW Comment: Hemoglobin A1c values of 5.7-6.4 percent indicate an increased risk for developing diabetes mellitus. In diabetic patients, HbA1c goals should be discussed with healthcare provider. Blood (Blood, Venous) 11/25/2022 2:09 PM CDT 11/25/2022 3:35 PM CDT Haseeb Menon Jr., D.O. LAB BLOOD AD D-ON Performing Organization Address [facility] Co de Phone Number [facility] [address] [place] [address], [place] [facility] [facility] in [place] [address] [place] [address] * (ABNORMAL) Lipid Panel (02/10/2021 8:27 AM [...] AM CDT Kemar Reyes LAB BLOOD ADD-ON [facility] [address] [place] [address], [facility] [address] [place] [address] from Last 3 Months or Most Recently Relevant to Health Maintenance Advance Directives For more information, please contact: [phone] * Full Code (Latest Code Status on [...] Answer Comments Full Code: Discussed Care Teams Embedded Developer Relationship Specialty Start Date End Date Elsewhere, Pcp PCP - General Family Medicine 01/29/20
--- OUTSIDE RECORDS SUMMARY | 2023-09-21 10:25 | XMS_ITS | Encounter Summary ---
Author Name Unknown Organization [facility] Address [address] [place] [address] Care Team Providers Care Sign Fabricator Name Role Phone Elsewhere, Pcp Primary Care Provider Unavailabl e Encounter Details Date Type Department Care Team (Late st Contact Info) Description 09/09/2023 Documentation Division of Nephrology and Hypertension in [place], [place] [address] [place] [address] Haseeb Menon Jr., D.O. [address] [place] [address] Social History Tobacco Use Types Packs/Day Years [...] week 03/24/2021 How often do you attend christianity or tenriism serv ices? Never 03/24/2021 Do you belong to any clubs o r organizations such as christianity groups, unions, fraternal or athletic groups, or [...] Sex Assigned at Male 03/24/2021 8:13 PM MULTIPLE SPINDLE ROUTER OPERATOR Gender Identity Male 08/31/2019 2:40 PM [...] AM CDT Clinical Communication Virtual Review in [place] [address] [place] [address] 10/11/2023 1:30 PM CDT Comprehensive Visit [facility] in [place], [place] [address] [place] [address] [place] Andrade, JULIÁN, C.N.P., M.S.N. [address] [place] [address] documented as of this encounter Visit Diagnoses Not on filedocumented in this encounter Additional Health Concerns Assessment Noted Time PHQ-9 Depression Total Score: 3 01/04/20 18 10:38 AM CDT documented as of this encounter Care Teams Sign Fabricator Relationship Specialty Start Date End Date Elsewhere, Pcp PCP - General Family Medicine 01/29/20 documented as of this encounter
--- OUTSIDE RECORDS SUMMARY | 2023-09-21 10:25 | XMS_ITS | Encounter Summary ---
Author Name Unknown Organization [facility] Address [address] [place] [address] Care Team Providers Care Senior Data Scientist Name Role Phone Elsewhere, Pcp Primary Care Provider Unavailabl e Reason for Referral * Outpatient (Routine) - Authorized Specialty Diagnoses / Procedures Referred By Robi hong Referred To Contact Sleep Medicine Diagnoses Atherosclerosis Of [place] Ar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 (HCC) Diabetes Mellitus Type 2 With Other Circulatory Complication (HCC) Anemia Of Chronic Renal Disease Sleep Apnea Haseeb Menon Jr., D.OFei [address] [place] [address] [facility] Referral ID Status Reason Start Date Expiration Date Visits Requested Visits Authorized [id number] Authorized Specialty Services Required 09/13/2023 03/14/2025 1 1 Encounter Details Date Type Department Care Team (Latest Contact Info) Description 09/13/2023 Orders Only Division of Nephrology and Hypertension in [place], [place] [address] [place] [address] Haseeb Menon Jr., D.OFei [address] [place] [phone] Atherosclerosis Of [place] Arteries Of Extremities With Intermittent Claudication Right [...] week 03/24/2021 How often do you attend judaism or mandaen serv ices? Never 03/24/2021 Do you belong to any clubs o r organizations such as judaism groups, unions, fraternal or athletic groups, or [...] 0 10/20/2018 [facility] - Occupational Stress Questionnaire Answer Date [...] Sex Assigned at Male 03/24/2021 8:13 PM GARBAGE COLLECTOR DRIVER Gender Identity Male 08/31/2019 2:40 PM CDT Sexual Orientation Straight 08/31/2019 2: 40 PM CDT documented as of this encounter Plan of Treatment Upcoming Encounters Date Type Department Care Team (Latest Contact Info) Description 10/06/2023 10:30 AM CDT Clinical Communication Virtual Review in [place], [place] 200 [place] [address] 10/11/2023 1:30 PM CDT Comprehensive Visit [facility] in [place], [place] [address] [place] [phone] Dallas Andrade, JULIÁN, C.N.P., M.S.N. [address] [place] [phone] Scheduled Referrals Name Type Priority Associated Diagnoses Orde r Schedule Sleep Medicine - General consult (clinic) Outpatient Referral Routine Atherosclerosis Of [place] Ar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 (HCC) Diabetes Mellitus Type 2 With Other Circulatory Complication (HCC) Anemia Of Chronic Renal Disease Sleep Apnea Expected: 09/13/2023, Expires: 12/12/2024 documented as of this encounter Visit Diagnoses Diagnosis Atherosclerosis Of [place] Ar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 (HCC)- Primary Diabetes Mellitus Type 2 With Other Circulatory Complication (HCC) Anemia Of Chronic Renal Disease Sleep Apnea documented in this encounter Additional Health Concerns Assessment Noted Time PHQ-9 Depression Total Score: 3 01/04/20 18 10:38 AM CDT documented as of this encounter Care Teams Senior Data Scientist Relationship Specialty Start Date End Date Elsewhere, Pcp PCP - General Family Medicine 01/29/20 documented as of this encounter
--- OUTSIDE RECORDS SUMMARY | 2023-09-21 10:25 | XMS_ITS | Encounter Summary ---
Author Name Unknown Organization [facility] Address [address] [place] [address] Care Team Providers Care Ostomy Care Nurse Name Role Phone Elsewhere, Pcp Primary Care Provider Unavailabl e Encounter Details Date Type Department Care Team (Late st Contact Info) Description 09/13/2023 Documentation Division of Nephrology and Hypertension in [place], [place] [address] [place] [address] Haseeb Menon Jr., D.O. [address] [place] [address] Social History Tobacco Use Types Packs/Day Years [...] How often do you attend bahai or jew serv ices? Never 03/24/2021 Do [...] living situation today? I have a [facility] place to live 10/26/2022 Education Answer Date Recorded What is the highest level of school you have completed or the highest degree you have received? 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/2021 8:13 PM EXPORT SPECIALIST Gender Identity Male 08/31/2019 2:40 PM CDT Sexual Orientation Straight 08/31/2019 2: 40 PM CDT documented as of this encounter Progress Notes * Haseeb Menon Jr., D.O. - 09/13/2023 9:30 AM CDT Care coordination-dialysis visit: Please see the sure scripts tab, in Care everywhere or the documents tab regarding his full dialysis notes from the [facility] Dialysis home program. Fair amount of [...] AM CDT Clinical Communication Virtual Review in [place], [place] 200 [place] [address] 10/11/2023 1:30 PM CDT Comprehensive Visit Center for [facility] Medicine in [address] [address] Dallas Andrade, JULIÁN, C.N.P., M.S.N. [address] [place] [phone] documented as of this encounter Visit Diagnoses Not on filedocumented in this encounter Additional Health Concerns Assessment Noted Time PHQ-9 Depression Total Score: 3 01/04/20 18 10:38 AM CDT documented as of this encounter Care Teams Ostomy Care Nurse Relationship Specialty Start Date End Date Elsewhere, Pcp PCP - General Family Medicine 01/29/20 documented as of this encounter
--- OUTSIDE RECORDS SUMMARY | 2023-09-21 10:25 | XMS_ITS | Referral Summary ---
Author Name Unknown Organization [facility] Address [address] [place] [address] Care Team Providers Care Nurse Practitioner Home Assessments Name Role Phone Elsewhere, Pcp Primary Care Provider Unavailabl e Source Comments Patient records contain information from all sites at [facility]. For routine questions regarding patient records, call [phone] during business hours, M-F 8:00 AM - 5:00 PM Central Time. Record requests for emergency care only can be directed to [phone] at any time.[facility] Encounters Date Type Department Care Team Description 09/13/2023 Documentation Division of Nephrology and Hypertension in [place], [place] [address] [place] [address] Haseeb Menon Jr., D.OFei 09/13/2023 Orders Only Division of Nephrology and Hypertension in [place], [place] [address] [place] [address] Haseeb Menon Jr., D.O. 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 09/09/2023 Orders Only Division of Nephrology and Hypertension in [place], [place] [address] [place] [address] Haseeb Menon Jr., D.O. 09/09/2023 Clinical Communication Division of Nephrology and Hypertension in [place], [place] [address] [place] [address] Haseeb Menon Jr., D.O. Hypertension 08/16/2023 Documentation Division of Nephrology and Hypertension, [facility], in [place], [place] [address] [place] [address] Ishan Guaraddo APRN C.N.P., M.S.N. 08/16/2023 Orders Only Division of Nephrology and Hypertension, [facility], in [place], [place] [address] [place] [address] Ishan Guardado APRN, C.N.P., M.S.N. 08/15/2023 Clinical Communication Division of Nephrology and Hypertension in [place], [place] [address] [place] [address] Haseeb Menon Jr., D.O. New Symptoms 08/09/2023 Documentation Division of Nephrology and Hypertension in [place], [place] [address] [place] [address] Haseeb Menon Jr., D.O. 08/09/2023 Orders Only Division of Nephrology and Hypertension in [place], [place] [address] [place] [address] Haseeb Menon Jr., D.O. from Last 3 Months Allergies Active Allergy Reactions Criticality Noted Date Comments Gabapentin Other (see comments) Medium 08/04/2020 Dizzy, memory issue Morphine Itching,Rash Medium 02/14/2012 itchy Pregabalin Anaphylaxis High 02/16/2017 swell Rzeydis-Cuh-Nnl Reductase Inhibitors Myalgia Low 02/13/2014 Medications Medication [...] ONE CAPSULE BY MOUTH EVERY DAY FPC 2 Active allopurinoL (ZYLOPRIM) 100 mg tablet [...] 04/21/2018 Restless Leg Syndrome 01/12/2018 Atherosclerosis Of [place] Ar 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 08/08/2017 Hyperlipidemia 07/22/2017 Ulcer Leg Left 04/19/2017 Ulcer Toe Left 04/19/2017 Atherosclerosis Of [place] Ar teries Of Left Leg With Ulceration Of Unspecified Site 04/19/2017 Peripheral Arterial Disease 02/16/2017 Hypertension NOS 02/16/2017 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/2021 8:13 PM CADMIUM BURNER Gender Identity Male 08/31/2019 2:40 PM CDT [...] AM CDT Clinical Communication Virtual Review in [place], [place] 200 [place] [address] 10/11/2023 1:30 PM CDT Comprehensive Visit [facility] in [address] [address] Dallas Andrade APRN, C.N.P., M.S.N. [address] [place] [phone] Medical Devices Implanted Type Area Shell Mold Bonder Device Identifier Shelf Expiration Date Model / Serial / Lot Patch Vasc Bovine.08cm X 8cm - Flores [id number] Implanted:Qty: 1 on 04/04/2017 Mesh or Patch Other/Legacy - See Implant Description Synovis Description:Device Manufactu rer - Synovis. Body Location - Other. Vascular. Device Status Text - [id number]. Ocular Lens-10/29/2007 Implanted:10/28 by Nato Dougherty APRN, C.N.P., R.N. (Quantity not on file) Ocular Lens Bilateral: Eye Description:Cataract extract ion and insertion of intraocular lens 06/22/2016 09:27 - NATO DOUGHERTY APRN BULLDOZER/LOADER/COMPACTOR/SCRAPER bilateral Conversions - Default Historical Implant Device [...] 6mm X 29mm X 135cm - Flores [id number] Implanted:Qty: 1 on 03/04/2017 Vascular Graft [place] Description:Device Manufactu rer - [place] [employer]. Device Status Text - [id number]. Stent Vbx [id number] - Flores [id number] Implanted:Qty: 1 on 03/04/2017 Vascular Graft Other/Legacy - See Implant Description [place] Description:Device Manufactu rer - [employer] [place] [employer] Body Location - Other. n/a. Device Status Text - [id number]. Stent Vbx [id number] - Flores [id number] Implanted:Qty: 1 on 03/04/2017 Vascular Graft Other/Legacy - See Implant Description [place] Description:Device Manufactu rer - [employer] [place] [employer] Body Location - Other. n/a. Device Status Text - [id number]. Stent Zilver Ptx 6mm X 40mm - Flores [id number] Implanted:Qty: 1 on 04/04/2017 Vascular Stent Other/Legacy - See Implant Description [employer] Description:Device Manufactu Herotainment - [employer]. Body Location - Other. Left. Device Status Text - [id number]. Stent Zilver Ptx 6mm X 60mm - Flores [id number] Implanted:Qty: 1 on 04/04/2017 Vascular Stent Other/Legacy - See Implant Description [employer] Description:Device Manufactu Herotainment - [employer]. Body Location - Other. Left. Device Status Text - [id number]. Stent Zilver Ptx 6mm X 80mm - Flores [id number] Implanted:Qty: 1 on 08/31/2017 Vascular Stent Right: Other/Legacy - See Implant Description [employer] / [id number] / Description:Device Manufactu Herotainment - [employer]. Body Location - Right. Device Status Text - [id number]. Stent Zilver Ptx 6mm X 40mm - Flores [id number] Implanted:Qty: 1 on 08/31/2017 Vascular Stent Right: Other/Legacy - See Implant Description [employer] / [id number] / Description:Device Manufactu rer - [employer]. Body Location - Right. Device Status Text - [id number]. Stnt Innova Otw [id number] - [id number] Implanted:Qty: 1 on 04/18/2018 by Kemar Velásquez M.B.B.S. at [facility] Vascular Stent [employer] [place] [employer] 05/23/2020 [id number] / / [id number] Stnt Innova Otw [id number] - [id number] Implanted:Qty: 1 on 05/11/2019 by Kemar Velásquez M.B.B.S. at [facility] Vascular Stent Left: Leg [employer] [place] [employer] 09/05/2020 [id number] / / [id number] Procedures Procedure Name Priority Date/Time Associated Diagnosis [...] Renal Disease Acidosis Metabolic Hyperchloremic Atherosclerosis Of [place] Ar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 (HCC) CT ABDOMEN PELVIS WITHOUT IV CONTRAST RAD - Routine (most inpatients and all outpatients) 05/27/2022 4:19 PM CADMIUM BURNER LIPID PANEL, S Routine 02/10/2021 8:27 AM CDT Peripheral Arterial Disease (HCC) Diabetes Mellitus Type 2 With Other Circulatory Complication Hyperglycemic (HCC) 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 - 02/17/2023 4:02 PM CDT Specimen Information: Specimen ID: [id number] Specimen Type: Blood Specimen Collection Start Date: 02/17/2023 ??9:35 AM Specimen Received Date: 02/17/2023 11:01 AM Specimen ID: [id number] Specimen Type: Blood Specimen Collection Start Date: 02/17/2023 ??9:35 AM Specimen Received Date: 02/17/2023 ??3:35 PM Haseeb Menon Jr., D.O. LAB BLOOD AD D-ON [facility] [address] [facility] [place] [address] [place] [address] [facility] [place] [address] * HCV Ab Scrn w/Reflex to HCV PCR, Serum (02/17/2023 9:35 AM CDT) HCV Ab Screen, S Negative Negative 02/18/20 3:35 PM CDT MKTO Comment: Biotin has been identified by the pension examiner as a potential interfering substance. Higher concentrations of biotin may be found in multivitamins, hair/nail supplements, and workout supplements. If the result does not match clinical observations, repeat testing after patient refrains from the use of supplements for at least 12 hours. Blood (Blood, Venous) 02/17/2023 9:35 AM CDT 02/17/2023 2:20 PM CDT [facility] - 02/17/2023 3:35 PM CDT Specimen Information: Specimen ID: [id number] Specimen Type: Blood Specimen Collection Start Date: 02/17/2023 ??9:35 AM Specimen Received Date: 02/17/2023 ??2:20 PM Specimen ID: [id number] Specimen Type: Blood Specimen Collection Start Date: 02/17/2023 ??9:35 AM Specimen Received Date: 02/17/2023 ??2:16 PM Haseeb Menon Jr., D.O. LAB MICROBIO LOGY - BLOOD ORDERABLES Performing Organization Address [facility] Co de Phone Number [facility] [address] [place] [address], [facility] MKTO [facility] [place] [address] [place] [address] * (ABNORMAL) Albumin, Random, Urine (02/17/2023 9:26 AM CDT) Microalbumin 895.0 mg/L 02/17/2023 1:53 PM CDT OWAT Creatinine 42 mg/dL 02/17/2023 12:50 PM CDT OWAT Albumin/Creatinin e Ratio 2131(H) <17 mg/g 02/17/2023 1:53 PM CDT [facility] Urine (Urine, Voided) 02/17/2023 9:26 AM CDT 02/17/2023 11:00 AM CDT Haseeb Menon Jr., D.O. LAB URINE OR DERABLES Performing Organization Address [facility] Co de Phone Number [facility] [address] [place] [address], [place] OWAT [facility] [place] [address] [place] [address] * (ABNORMAL) Hemoglobin A1c (11/25/2022 2:09 PM [...] Menon Jr., D.O. LAB BLOOD AD D-ON [facility] [address] [place] [address], [place] OW[facility] [place] [address] [place] [address] * (ABNORMAL) Lipid Panel (02/10/2021 8:27 AM CDT) [facility] Cholesterol, Total 102 mg/dL 2020 10:06 AM [...] AM CDT Kemar Reyes LAB BLOOD ADD-ON [facility] [address] [place] [address], [place] DTL [facility] [address] [place] [address] from Last 3 Months or Most Recently Relevant to Health Maintenance Advance Directives For more information, please contact: [phone] * Full Code (Latest Code Status on [...] Answer Comments Full Code: Discussed Care Teams Nurse Practitioner Home Assessments Relationship Specialty Start Date End Date Elsewhere, Pcp PCP - General Family Medicine 01/29/20
--- OUTSIDE RECORDS SUMMARY | 2023-09-21 10:25 | XMS_ITS | Encounter Summary ---
Author Name Unknown Organization [facility] Address [address] [place] [address] Care Team Providers Care Foundation Drill Operator Name Role Phone Elsewhere, Pcp Primary Care Provider Unavailabl e Encounter Details Date Type Department Care Team (Late st Contact Info) Description 09/09/2023 Orders Only Division of Nephrology and Hypertension in [place], [place] [address] [place] [address] Haseeb Menon Jr., D.O. [address] [place] [address] Social History Tobacco Use Types Packs/Day Years [...] How often do you attend temple or yazdanism serv ices? 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 [address] [place] [phone] documented as of this encounter Visit Diagnoses Not on filedocumented in this encounter Additional Health Concerns Assessment Noted Time PHQ-9 Depression Total Score: 3 01/04/20 18 10:38 AM CDT documented as of this encounter Care Teams Foundation Drill Operator Relationship Specialty Start Date End Date Elsewhere, Pcp PCP - General Family Medicine 01/29/20 documented as of this encounter
--- OUTSIDE RECORDS SUMMARY | 2023-09-21 10:25 | XMS_ITS | Continuity of Care Document ---
Author Name Unknown Organization [facility] Address [address] [place] [address] Phone Care Team Providers Care Trombone Slide Assembler Name Role Phone Dot Warner Unavailable Unavailable Medications Medication Instructions Dosage Effective Dates (start - stop) Status Comments AMPICILLIN-SULBACTAM (unknown strength) Not Available - Active MINOCYCLINE HCL (unknown strength) Not Available - Active Procedures Procedure Date Office/Outpatient Visit,Est, Mod 2022 OFFICE/OUTPATIENT VISIT EST Phone Office/Outpatient Visit,Est, Mod 2022 Followup Hospital Care, [facility] 2021 Advance Directives Directive Yes / No Effective Date File Name No Information Encounters Encounter Description Practice Location Reason(s) For Visit Diagnoses Date Provider Providers Copied on Encounter [facility], [address], [place], [place], [id number] , [place] tel: [phone] [facility] - [facility] No Information 3 Kindra Chris. [facility] [place], [address] [place] [address] [address], [place], [address], [place]. tel: [phone] Office/Outpa tient Visit,Est, Mod [facility], [address], [place], [place], [id number] , [place] tel: [phone] [facility] - [facility] Spinal stenosis, lumbar region with neurogenic claudication 3 Camille Bob. [facility] [place], [address] [place] [address], [address], [place], [address], [place]. tel: [phone] Referring Provider: Lisbeth Thomas, [facility] [address], [address], [place], [address]. [phone] OFFICE/OUTPA TIENT VISIT EST Phone [facility], [address], [place], [place], [id number] , [place] tel:[phone] [facility] No Information 3 Obrien Lisbeth. [facility] [place], [address], [address], [place], [address], [place]. tel:[phone] Referring Provider: Lisbeth Thomas, [facility] [address], [address], [place], [address]. tel:[phone] Office/Outpa tient Visit,Est, Mod [facility], [address], [place], [place], [id number] , [place] [phone] [facility] Low back pain, unspecifiedOther specified soft tissue disorders 3 Obrien Lisbeth. [facility] [place], [address], [address], [place], [address], [place]. tel:[phone] Referring Provider: Lisbeth Thomas, [facility] [address], [address], [place], [address]. tel:[phone] Followup Hospital Care, Moderate [facility], [address], [place], [place], [id number] , [place] [phone] [facility] No Information 2 Nicolasana paula Velez. [facility], [address], [address], [place], [address], [place]. tel:[phone] Referring Provider: Rudy Riddle, [facility] [address], [address]. tel:[phone] Family History Family Member Type Diagnosis Age At Onset No Information Payers Payer name Insurance type Covered libertarian ID Authorjaime[place] bhargav([place]) [id number] Medicare [facility] [id number] Social History Type Description Quantity Date [...]
--- OUTSIDE RECORDS SUMMARY | 2023-09-21 10:26 | XMS_ITS | Encounter Summary ---
Author Name Unknown Organization [facility] Address [address] [place] [address] Care Team Providers Care Moose Hunter Name Role Phone Elsewhere, Pcp Primary Care Provider Unavailabl e Encounter Details Date Type Department Care Team (Late st Contact Info) Description 08/09/2023 Documentation Division of Nephrology and Hypertension in [place], [place] [address] [place] [address] Haseeb Menon Jr., D.O. [address] [place] [address] Social History Tobacco Use Types Packs/Day Years [...] How often do you attend amish or shinto serv ices? Never 03/24/2021 Do you belong [...] Date Recorded PHQ-2 Score 0 10/20/2018 [facility] of Occupat ional Health - Occupational [...] living situation today? I have a [facility] place to live 10/26/2022 Education Answer Date Recorded What is the highest level of school you have completed or the highest degree you have received? 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/2021 8:13 PM MILLWRIGHT Gender Identity Male 08/31/2019 2:40 PM CDT Sexual Orientation Straight 08/31/2019 2: 40 PM CDT documented as of this encounter Progress Notes * Haseeb Menon Jr., D.O. - 08/09/2023 3:25 PM CDT Care coordination-home dialysis clinic note Please see the [facility] sure scripts and Care everywhere note [...] AM CDT Clinical Communication Virtual Review in [place], [place] 200 [place] [address] 10/11/2023 1:30 PM CDT Comprehensive Visit [facility] in [place], [place] [address] [place] [phone] Dallas Andrade, JULIÁN, C.N.P., M.S.N. [address] [place] [phone] documented as of this encounter Visit Diagnoses Not on filedocumented in this encounter Additional Health Concerns Assessment Noted Time PHQ-9 Depression Total Score: 3 01/04/20 18 10:38 AM CDT documented as of this encounter Care Teams Moose Hunter Relationship Specialty Start Date End Date Elsewhere, Pcp PCP - General Family Medicine 01/29/20 documented as of this encounter
--- OUTSIDE RECORDS SUMMARY | 2023-09-21 10:26 | XMS_ITS | Encounter Summary ---
Author Name Unknown Organization [facility] Address [address] [place] [address] Care Team Providers Care Obiee Consultant Name Role Phone Elsewhere, Pcp Primary Care Provider Unavailabl e Encounter Details Date Type Department Care Team (Late st Contact Info) Description 08/16/2023 Orders Only Division of Nephrology and Hypertension, [facility], in [place], [place] [address] [place] [address] Ishan Guardado, JULIÁN, C.N.P., M.S.N. [address] [place] [address] Social History Tobacco Use Types Packs/Day Years [...] How often do you attend presybeterian or yazdanism serv ices? Never 03/24/2021 Do [...] Recorded PHQ-2 Score 0 10/20/2018 [facility] of Occupat ional Health - Occupational [...] your living situation today? I have a [facility] place to live 10/26/2022 Education Answer Date Recorded What is the highest level of school you have completed or the highest degree you have received? 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/2021 8:13 PM COLD WORKING SUPERVISOR Gender Identity Male 08/31/2019 2:40 PM CDT Sexual Orientation Straight 08/31/2019 2: 40 PM CDT documented as of this encounter Plan of Treatment Upcoming Encounters Date Type Department Care Team (Latest Contact Info) Description 10/06/2023 10:30 AM CDT Clinical Communication Virtual Review in [place], [place] 200 [place] [address] 10/11/2023 1:30 PM CDT Comprehensive Visit [facility] in [place], [place] [address] [place] [phone] Dallas Andrade, JULIÁN, C.N.P., M.S.N. [address] [place] [phone] documented as of this encounter Visit Diagnoses Not on filedocumented in this encounter Additional Health Concerns Assessment Noted Time PHQ-9 Depression Total Score: 3 01/04/20 18 10:38 AM CDT documented as of this encounter Care Teams Obiee Consultant Relationship Specialty Start Date End Date Elsewhere, Pcp PCP - General Family Medicine 01/29/20 documented as of this encounter
--- OUTSIDE RECORDS SUMMARY | 2023-09-21 10:26 | XMS_ITS | Encounter Summary ---
Author Name Unknown Organization [facility] Address [address] [place] [address] Care Team Providers Care Melt Supervisor Name Role Phone Elsewhere, Pcp Primary Care Provider Unavailabl e Encounter Details Date Type Department Care Team (Late st Contact Info) Description 08/16/2023 Documentation Division of Nephrology and Hypertension, [facility], in [place], [place] [address] [place] [phone] Ishan Guardado, JULIÁN, C.N.P., M.S.N. [address] [place] [phone] Social History Tobacco Use Types Packs/Day Years [...] often do you attend baptism or yazidi serv ices? 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/2021 8:13 PM AQUARIST Gender Identity Male 08/31/2019 2:40 PM CDT [...] AM CDT Clinical Communication Virtual Review in [place], [place] [address] [place] [address] 10/11/2023 1:30 PM CDT Comprehensive Visit [facility] in [place], [place] [address] [place] [phone] Dallas Andrade APRN, CFeiN.P., M.S.N. [address] [place] [phone] documented as of this encounter Visit Diagnoses Not on filedocumented in this encounter Additional Health Concerns Assessment Noted Time PHQ-9 Depression Total Score: 3 01/04/20 18 10:38 AM CDT documented as of this encounter Care Teams Melt Supervisor Relationship Specialty Start Date End Date Elsewhere, Pcp PCP - General Family Medicine 01/29/20 documented as of this encounter
--- OUTSIDE RECORDS SUMMARY | 2023-09-21 10:26 | XMS_ITS | Encounter Summary ---
Author Name Unknown Organization [facility] Address [address] [place] [address] Care Team Providers Care Apple Solutions Consultant Name Role Phone Elsewhere, Pcp Primary Care Provider Unavailpaola e Encounter Details Date Type Department Care Team (Late st Contact Info) Description 08/19/2016 Historical Ophthalmology [facility] Chalo Holland Jr., M.D. 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 [address] [place] [phone] documented as of this encounter Visit Diagnoses Not on filedocumented in this encounter Additional Health Concerns Infection Onset Date Last Indicated Resolved Time COVID19 Pending 05/08/2020 05/08/2020 05/08/2020 2 :44 PM RUBBER GOODS TESTER WATER Assessment Noted Time PHQ-9 Depression Total Score: 7 08/17/19 17 9:01 AM CDT documented as of this encounter Care Teams Apple Solutions Consultant Relationship Specialty Start Date End Date Elsewhere, Pcp PCP - General Family Medicine 01/29/20 documented as of this encounter
--- OUTSIDE RECORDS SUMMARY | 2023-09-21 10:26 | XMS_ITS | Encounter Summary ---
Author Name Unknown Organization [facility] Address [address] [place] [address] Care Team Providers Care Payroll Processor Name Role Phone Elsewhere, Pcp Primary Care Provider Unavailabl e Encounter Details Date Type Department Care Team (Late st Contact Info) Description 08/09/2023 Orders Only Division of Nephrology and Hypertension in [place], [place] [address] [place] [address] Haseeb Menon Jr., D.O. [address] [place] [address] Social History Tobacco Use Types Packs/Day Years [...] How often do you attend rastafari or church serv ices? Never 03/24/2021 Do [...] Answer Date Recorded PHQ-2 Score 0 10/20/2018 [facility] of Occupat ional Health [...] living situation today? I have a [facility] place to live 10/26/2022 Education Answer Date Recorded What is the highest level of school you have completed or the highest degree you have received? 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 [address] [place] [phone] documented as of this encounter Visit Diagnoses Not on filedocumented in this encounter Additional Health Concerns Assessment Noted Time PHQ-9 Depression Total Score: 3 01/04/20 18 10:38 AM CDT documented as of this encounter Care Teams Payroll Processor Relationship Specialty Start Date End Date Elsewhere, Pcp PCP - General Family Medicine 01/29/20 documented as of this encounter
--- OUTSIDE RECORDS SUMMARY | 2023-09-21 10:26 | XMS_ITS | Encounter Summary ---
Author Name Unknown Organization [facility] Address [address] [place] [address] Care Team Providers Care Shore Man Name Role Phone Elsewhere, Pcp Primary Care Provider Unavailabl e Reason for Visit * Reason Onset Date Comments Hypertension 09/09/2023 Encounter Details Date Type Department Care Team (Latest Contact Info) Description 09/09/2023 Clinical Communication Division of Nephrology and Hypertension in [place], [place] [address] [place] [address] Haseeb Menon Jr., D.O. [address] [place] [address] Hypertension Social History Tobacco Use Types Packs/Day [...] How often do you attend taoist or synagogue serv ices? Never 03/24/2021 Do [...] Score 0 10/20/2018 [facility] - Occupational Stress Questionnaire [...] your living situation today? I have a [facility] place to live 10/26/2022 Education Answer Date Recorded What is the highest level of school you have completed or the highest degree you have received? 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 YES -- Patient is noticing HIGH blood pressure readings today. Should adjustments be made? documented in this encounter Plan of Treatment Upcoming Encounters Date Type Department Care Team (Latest Contact Info) Description 10/06/2023 10:30 AM CDT Clinical Communication Virtual Review in [place], [place] [address] [place] [address] 10/11/2023 1:30 PM CDT Comprehensive Visit [facility] in [place], [place] [address] [place] [address] Dallas Andrade, JULIÁN, C.N.P., M.S.N. [address] [place] [address] documented as of this encounter Visit Diagnoses Not on filedocumented in this encounter Additional Health Concerns Assessment Noted Time PHQ-9 Depression Total Score: 3 01/04/20 18 10:38 AM CDT documented as of this encounter Care Teams Shore Man Relationship Specialty Start Date End Date Elsewhere, Pcp PCP - General Family Medicine 01/29/20 documented as of this encounter
--- OUTSIDE RECORDS SUMMARY | 2023-09-21 10:26 | XMS_ITS | Encounter Summary ---
Author Name Unknown Organization [facility] Address [address] [place] [address] Care Team Providers Care Paraeducator Name Role Phone Elsewhere, Pcp Primary Care Provider Unavailabl e Encounter Details Date Type Department Care Team (Late st Contact Info) Description 06/17/2023 Orders Only Division of Nephrology and Hypertension in [place], [place] [address] [place] [address] Haseeb Menon Jr., D.O. [address] [place] [address] Social History Tobacco Use Types Packs/Day Years [...] How often do you attend christian or zoroastrianism serv ices? 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 [address] [place] [phone] documented as of this encounter Visit Diagnoses Not on filedocumented in this encounter Additional Health Concerns Assessment Noted Time PHQ-9 Depression Total Score: 3 01/04/20 18 10:38 AM CDT documented as of this encounter Care Teams Paraeducator Relationship Specialty Start Date End Date Elsewhere, Pcp PCP - General Family Medicine 01/29/20 documented as of this encounter
--- OUTSIDE RECORDS SUMMARY | 2023-09-21 10:26 | XMS_ITS | Encounter Summary ---
Author Name Unknown Organization [facility] Address [address] [place] [address] Care Team Providers Care Fire Safety Manager Name Role Phone Elsewhere, Pcp Primary Care Provider Unavailabl e Reason for Visit * Reason Onset Date Comments New Symptoms 08/15/2023 Encounter Details Date Type Department Care Team (Latest Contact Info) Description 08/15/2023 Clinical Communication Division of Nephrology and Hypertension in [place], [place] [address] [place] [address] Haseeb Menon Jr., D.O. [address] [place] [address] New Symptoms Social History Tobacco Use Types [...] How often do you attend lutheran or restorationist serv ices? 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 [facility] also notes that he is having some [...] I spoke with Uriel, Pharmacist, in our [facility]. Per his medication database, a Peritoneal [...] The following references were used: other [facility] Pharmacist . * Telephone Encounter - Chloe Lazo - 08/15/2023 10:43 AM CDT Caller is: : Authorization YES Preferred Communication Method: [phone] Reason for call: Pt's , Siria, called [...] AM CDT Clinical Communication Virtual Review in [place], [place] 200 [place] [address] 10/11/2023 1:30 PM CDT Comprehensive Visit [facility] in [place], [place] [address] [place] [phone] Dallas Andrade, JULIÁN, C.N.P., M.S.N. [address] [place] [phone] documented as of this encounter Visit Diagnoses Not on filedocumented in this encounter Additional Health Concerns Assessment Noted Time PHQ-9 Depression Total Score: 3 01/04/20 18 10:38 AM CDT documented as of this encounter Care Teams Fire Safety Manager Relationship Specialty Start Date End Date Elsewhere, Pcp PCP - General Family Medicine 01/29/20 documented as of this encounter
== END 2023-09-21 10:16 | disposition home or self-care (01) ==
LOC: MRI 10:16
PROVIDERS: PCP Family Medicine; Visit Provider Nurse Practitioner Family
DX: M86.9 Osteomyelitis, unspecified (principal); M25.474 Effusion, right foot; M65.871 Other synovitis and tenosynovitis, right ankle and foot
CPT/HCPCS: 73718

== ENCOUNTER 2023-09-27 09:23 | Outpatient (CLI) | payer MEDICARE, BC, SELFPAY ==
--- OUTSIDE RECORDS SUMMARY | 2023-09-27 09:25 | XMS_ITS | Continuity of Care Document ---
Author Name Unknown Organization [facility] Address [address] [place] [address] Phone Care Team Providers Care Scientific Editor Name Role Phone Dot Warner Unavailable Unavailable Medications Medication Instructions Dosage Effective Dates (start - stop) Status Comments MINOCYCLINE HCL (unknown strength) Not Available - Active AMPICILLIN-SULBACTAM (unknown strength) Not Available - Active Procedures Procedure Date Office/Outpatient Visit,Est, Mod 2022 OFFICE/OUTPATIENT VISIT EST Phone Office/Outpatient Visit,Est, Mod 2022 Followup Hospital Care, [facility] 2021 Advance Directives Directive Yes / No Effective Date File Name No Information Encounters Encounter Description Practice Location Reason(s) For Visit Diagnoses Date Provider Providers Copied on Encounter [facility], [address], [place], [place], [id number] , [place] tel: [phone] [facility] - [facility] No Information 3 Kindra Chris. [facility], [address] [place] [address] [address], [place], [address], [place]. tel: [phone] Office/Outpa tient Visit,Est, Mod [facility], [address], [place], [place], [id number] , [place] tel: [phone] [facility] - [facility] Spinal stenosis, lumbar region with neurogenic claudication 3 Camille Bob. [facility], [address] [place] [address], [address], [place], [address], [place]. tel: [phone] Referring Provider: Lisbeth Thomas, [facility] [address], [address], [place], [address]. [phone] OFFICE/OUTPA TIENT VISIT EST Phone [facility], [address], [place], [place], [id number] , [place] tel:[phone] [facility] No Information 3 Obrien Lisbeth. [facility], [address], [address], [place], [address], [place]. tel:[phone] Referring Provider: Lisbeth Thomas, [facility] [address], [address], [place], [address]. tel:[phone] Office/Outpa tient Visit,Est, Mod [facility], [address], [place], [place], [id number] , [place] [phone] [facility] back pain, unspecifiedOther specified soft tissue disorders 3 Obrien Lisbeth. [facility], [address], [address], [place], [address], [place]. tel:[phone] Referring Provider: Lisbeth Thomas, [facility] [address], [address], [place], [address]. tel:[phone] Followup Hospital Care, Moderate [facility], [address], [place], [place], [id number] , [place] [phone] [facility] No Information 2 Nicolasana paula Velez. [facility], [address], [address], [place], [address], [place]. tel:[phone] Referring Provider: Rudy Riddle, [facility] And [address], [address]. tel:[phone] Family History Family Member Type Diagnosis Age At Onset No Information Payers Payer name Insurance type Covered green party ID Authorjaimea bhargav(s) [id number] Medicare [facility] [id number] Social History Type Description Quantity Date [...]
--- OUTSIDE RECORDS SUMMARY | 2023-09-27 09:25 | XMS_ITS | Clinical Summary ---
Author Name Unknown Organization [employer] [facility] Address [place], [place] [address] Care Team Providers Care Lead Software Developer Name Role Phone Casa Lucia MD Unavailable Unavailable Rudy Riddle MD Unavailable [phone] Rudy Riddle MD Primary Care Provider + Allergies Active Allergy Reactions Criticality Noted Date Comments Gabapentin Other - Describe In Comment Field Medium 08/04/2020 Dizzy, memory issue Dizzy, memory issue Morphine Itching 02/04/2010 After 3 days of use Pregabalin Anaphylaxis,Itching High 02/16/2017 swell swell Nnltbdc-Pbg-Axf Reductase Inhibitors Myalgia 02/13/2014 Medications Medication Sig [...] Department Care Team Description 09/13/2023 Lab Requisition [facility] [phone] Unknown, Doctor from Last 3 Months Immunizations [...] Comments Blood Pressure 162/87 07/21/2022 9:21 PM PRODUCTION SUPERINTENDENT HYDRO Pulse 100 07/21/2022 9:21 PM PRODUCTION SUPERINTENDENT HYDRO Temperature 37.1 ??C (98.8 ??F) 07/21/2022 8:51 PM CS T Respiratory Rate 18 07/21/2022 8:51 PM PRODUCTION SUPERINTENDENT HYDRO Oxygen Saturation 96% 07/21/2022 9:21 PM PRODUCTION SUPERINTENDENT HYDRO Inhaled Oxygen Concentration - - Weight 83.9 kg (185 lb) 07/21/2022 5:35 PM PRODUCTION SUPERINTENDENT HYDRO Height 175.3 cm (5' 9) 07/21/2022 5:35 PM PRODUCTION SUPERINTENDENT HYDRO Body Mass Index 27.32 07/21/2022 5:35 PM PRODUCTION SUPERINTENDENT HYDRO Plan of Treatment Health Maintenance Due Date [...] age 77 05/12/203205/12, 02/04/2006 (Completed outside of [facility]) Tdap Completed 08/16/2016 Pneumococcal series for age [...] 0 AM CDT COLONOSCOPY 05/12/2022 8:51 AM PRODUCTION SUPERINTENDENT HYDRO LIPID PANEL W REFLEX MEASURED LDL Routine 02/16/2016 8:59 AM CDT Hyperlipidemia, unspecified hyperlipidemia type from Last 3 Months or Most Recently Relevant to Health Maintenance Results * LAB TRACKING EVENT (09/13/2023 11:00 AM CDT) Other (Other) Client Collect / Unknown 09/13/2023 11:00 AM CDT 09/13/2023 9:30 PM CDT Doctor Unknown LAB BILL ONLY [facility] [address] [place] [address], * PATH TISSUE EXAM (09/13/2023 11:00 AM CDT) Case Report Pathology Report ?Case: [id number] ? Authorizing Provider: ??Unknown, Doctor ?Collected: ? 09/13/2023 1100 ? Ordering Location: ? [facility] ?Received: ?09/14/2023 1033 ? Pathologist: ? Anson Hale MD ? Specimen: ?Right foot ? 09/16/2023 7:47 AM [facility] LABORATORY Final Diagnosis A) FOOT, RIGHT, BIOPSY: 1. Bone with acute and chronic osteomyelitis 09/16/2023 7:47 AM [facility] Comment The specific bone that was biopsied is not provided. 09/16/2023 7:47 AM [facility] Clinical Information Right foot, assess for osteomyelitis. 09/16/2023 7:47 AM [facility] [employer] [facility] Gross Description A) Received in formalin, labeled with the patient's name and date of , is a 1.8 x 0.5 x 0.2 cm aggregate of suresh-pink soft tissue fragments admixed with pale-suresh bone. ??The specimen is submitted entirely, in toto in 1 cassette. [facility] 09/14/2023 ?? 09/16/2023 7:47 AM [facility] Microscopic Description The final diagnosis is based on microscopic examination of appropriate sections of all specimens. 09/16/2023 7:47 AM CDT [facility] LAB[facility]ORY Additional Information Interpreted at [facility] - [address], [place] [address] 09/16/2023 7:47 AM CDT [facility]- EN[facility] Other (Right foot) 09/13/2023 11:00 AM CDT 09/14/2023 10:33 AM CDT Doctor Unknown PATHOLOGY/CYTOLOGY [facility] [address] [place] [address], [place] * COLONOSCOPY (05/12/2022 8:51 AM PRODUCTION SUPERINTENDENT HYDRO) 05/12/2022 8:51 AM PRODUCTION SUPERINTENDENT HYDRO Narrative Transcriptions Lukas West MD - 05/12/2022 9:03 AM [facility] Patient Name: Onesimo Walton Procedure Date: 05/12/2022 Gender: Male Date of : 1950 Admit Type: Inpatient Procedure: Colonoscopy Proceduralist: Lukas West MD [facility] Indications/Pre-Op Diagnosis: Anemia. Bacteremia Medications: Monitored Anesthesia Care Procedure Description: The patient had risks, benefits and alternatives explained to andgave informed consent. The patient had a stable cardiopulmonary status and judged an adequate candidate for conscious sedation. The [id number] endoscope was passed through the anus and [...] Furthermanagement is per the primary team. Call [facility] back if any questions orconcerns. Lukas West MD 05/12/2022 9:03:39 AM This report has been signed electronically. Note Initiated On: 05/12/2022 8:51 AM Lukas West MD PROCEDURE ORD * (ABNORMAL) LIPID PANEL W REFLEX MEASURED LDL (02/16/2016 8:59 AM CDT) CHOLESTEROL,TOTAL 178 100 - 199 mg/dL 02/16/2016 11:02 AM [facility] TRIGLYCERIDES 232(H) <150 mg/dL 02/16/2016 11:02 AM [facility] HDL CHOLESTEROL 31(L) >40 mg/dL 02/16/2016 11:02 AM [facility] NON-HDL CHOLESTEROL 147(H) <145 mg/dl 02/16/2016 11:02 AM [facility] CHOL/HDL RATIO 5.74(H) <4.50 02/16/2016 11:02 AM [facility] LDL CHOLESTEROL 101 <=130 mg/dL 02/16/2016 11:02 AM CDT [facility] PATIENT STATUS FASTING 02/16/2016 11:02 AM CDT [facility] Blood BLOOD SPECIMEN / Unknown Venipuncture / Unknown 02/16/2016 8:59 AM CDT 02/16/2016 8:59 AM CDT Rudy Riddle MD CHEMISTRY [facility] [address] [place], [place] [id number] [place] [address] [address] [place] [address], [place] [phone] from Last 3 Months or Most Recently [...] Preferences, Provider to review later Care Teams Lead Software Developer Relationship Specialty Start Date End Date Rudy Riddle MD [address] [place] [address] PCP - General Family Practice 05/25/22 Casa Lucia MD [address] [facility] [address] ANG[place] Hernandez [address] Ophthalmology Ophthalmology Surgery 12/22/11 Rudy Riddle MD [address] [place] [address] Family Practice 05/07/22
--- OUTSIDE RECORDS SUMMARY | 2023-09-27 09:26 | XMS_ITS | Encounter Summary ---
Author Name Unknown Organization [facility] Address [address] [place] [address] Care Team Providers Care Anesthesiology Physician Assistant Name Role Phone Elsewhere, Pcp Primary Care Provider Unavailabl e Encounter Details Date Type Department Care Team (Late st Contact Info) Description 08/09/2023 Orders Only Division of Nephrology and Hypertension in [place], [place] [address] [place] [address] Haseeb Menon Jr., D.O. [address] [place] [address] Social History Tobacco Use Types Packs/Day Years [...] How often do you attend baptism or amish serv ices? Never 03/24/2021 Do [...] your living situation today? I have a [facility] place to live 10/26/2022 Education Answer Date Recorded What is the highest level of school you have completed or the highest degree you have received? 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 [address] [place] [phone] documented as of this encounter Visit Diagnoses Not on filedocumented in this encounter Additional Health Concerns Assessment Noted Time PHQ-9 Depression Total Score: 3 01/04/20 18 10:38 AM CDT documented as of this encounter Care Teams Anesthesiology Physician Assistant Relationship Specialty Start Date End Date Elsewhere, Pcp PCP - General Family Medicine 01/29/20 documented as of this encounter
--- OUTSIDE RECORDS SUMMARY | 2023-09-27 09:26 | XMS_ITS | Encounter Summary ---
Author Name Unknown Organization [facility] Address [address] [place] [address] Care Team Providers Care Countersinker Name Role Phone Elsewhere, Pcp Primary Care Provider Unavailabl e Encounter Details Date Type Department Care Team (Late st Contact Info) Description 08/16/2023 Documentation Division of Nephrology and Hypertension, [facility], in [place], [place] [address] [place] [phone] Ishan Guardado, JULIÁN, C.N.P., M.S.N. [address] [place] [phone] Social History Tobacco Use Types Packs/Day Years [...] How often do you attend orthodox or jew serv ices? Never 03/24/2021 Do [...] 10/20/2018 [facility] of Occupat ional Health - Occupational [...] your living situation today? I have a [facility] place to live 10/26/2022 Education Answer Date Recorded What is the highest level of school you have completed or the highest degree you have received? 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 [address] [place] [phone] documented as of this encounter Visit Diagnoses Not on filedocumented in this encounter Additional Health Concerns Assessment Noted Time PHQ-9 Depression Total Score: 3 01/04/20 18 10:38 AM CDT documented as of this encounter Care Teams Countersinker Relationship Specialty Start Date End Date Elsewhere, Pcp PCP - General Family Medicine 01/29/20 documented as of this encounter
--- OUTSIDE RECORDS SUMMARY | 2023-09-27 09:26 | XMS_ITS | Encounter Summary ---
Author Name Unknown Organization [facility] Address [address] [place] [address] Care Team Providers Care Engineering Coordinator Name Role Phone Elsewhere, Pcp Primary Care Provider Unavailabl e Encounter Details Date Type Department Care Team (Late st Contact Info) Description 09/13/2023 Documentation Division of Nephrology and Hypertension in [place], [place] [address] [place] [address] Haseeb Menon Jr., D.O. [address] [place] [address] Social History Tobacco Use Types Packs/Day Years [...] How often do you attend anabaptism or moravian serv ices? 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 - 09/13/2023 9:30 AM CDT Care coordination-dialysis visit: Please see the sure scripts tab, in Care everywhere or the documents tab regarding his full dialysis notes from the [facility] home program. Fair amount of confusion [...] AM CDT Clinical Communication Virtual Review in [place], [place] 200 [place] [address] 10/11/2023 1:30 PM CDT Comprehensive Visit [facility] in [address] [phone] Dallas Andrade, JULIÁN, C.N.P., M.S.N. [address] [place] [phone] documented as of this encounter Visit Diagnoses Not on filedocumented in this encounter Additional Health Concerns Assessment Noted Time PHQ-9 Depression Total Score: 3 01/04/20 18 10:38 AM CDT documented as of this encounter Care Teams Engineering Coordinator Relationship Specialty Start Date End Date Elsewhere, Pcp PCP - General Family Medicine 01/29/20 documented as of this encounter
--- OUTSIDE RECORDS SUMMARY | 2023-09-27 09:26 | XMS_ITS | Encounter Summary ---
Author Name Unknown Organization [facility] Address [address] [place] [address] Care Team Providers Care Ccnp Name Role Phone Elsewhere, Pcp Primary Care Provider Unavailabl e Reason for Visit * Reason Onset Date Comments New Symptoms 08/15/2023 Encounter Details Date Type Department Care Team (Latest Contact Info) Description 08/15/2023 Clinical Communication Division of Nephrology and Hypertension in [place], [place] [address] [place] [address] Haseeb Menon Jr., D.O. [address] [place] [address] New Symptoms Social History Tobacco Use Types [...] How often do you attend taoism or voodoo serv ices? Never 03/24/2021 Do [...] Answer Date Recorded PHQ-2 Score 0 10/20/2018 [facility] of Occupat ional Health - Occupational Stress [...] your living situation today? I have a [facility] place to live 10/26/2022 Education Answer Date Recorded What is the highest level of school you have completed or the highest degree you have received? 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 Per his medication database, a [...] yes. The following references were used: other [facility] Pharmacist . * Telephone Encounter - Chloe Lazo - 08/15/2023 10:43 AM CDT Caller is: : Authorization YES Preferred Communication Method: [phone] Reason for call: Pt's , Siria, called [...] AM CDT Clinical Communication Virtual Review in [place], [place] [address] [place] [address] 10/11/2023 1:30 PM CDT Comprehensive Visit [facility] in [place], [place] [address] [place] [phone] Dallas Andrade, JULIÁN, C.N.P., M.S.N. [address] [place] [phone] documented as of this encounter Visit Diagnoses Not on filedocumented in this encounter Additional Health Concerns Assessment Noted Time PHQ-9 Depression Total Score: 3 01/04/20 18 10:38 AM CDT documented as of this encounter Care Teams Ccnp Relationship Specialty Start Date End Date Elsewhere, Pcp PCP - General Family Medicine 01/29/20 documented as of this encounter
--- OUTSIDE RECORDS SUMMARY | 2023-09-27 09:26 | XMS_ITS | Encounter Summary ---
Author Name Unknown Organization [facility] Address [address] [place] [address] Care Team Providers Care Integrated Marketing Manager Name Role Phone Elsewhere, Pcp Primary Care Provider Unavailabl e Reason for Visit * Reason Onset Date Comments Hypertension 09/09/2023 Encounter Details Date Type Department Care Team (Latest Contact Info) Description 09/09/2023 Clinical Communication Division of Nephrology and Hypertension in [place], [place] [address] [place] [address] Haseeb Menon Jr., D.O. [address] [place] [address] Hypertension Social History Tobacco Use Types Packs/Day [...] How often do you attend judaism or taoist serv ices? Never 03/24/2021 Do [...] Answer Date Recorded PHQ-2 Score 0 10/20/2018 [facility] - Occupational Stress Questionnaire [...] living situation today? I have a [facility] place to live 10/26/2022 Education Answer Date Recorded What is the highest level of school you have completed or the highest degree you have received? 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 YES -- Patient is noticing HIGH blood pressure readings today. Should adjustments be made? documented in this encounter Plan of Treatment Upcoming Encounters Date Type Department Care Team (Latest Contact Info) Description 10/06/2023 10:30 AM CDT Clinical Communication Virtual Review in [place], [place] [address] [place] [address] 10/11/2023 1:30 PM CDT Comprehensive Visit [facility] in [place], [place] [address] [place] [address] Dallas Andrade, JULIÁN, C.N.P., M.S.N. [address] [place] [address] documented as of this encounter Visit Diagnoses Not on filedocumented in this encounter Additional Health Concerns Assessment Noted Time PHQ-9 Depression Total Score: 3 01/04/20 18 10:38 AM CDT documented as of this encounter Care Teams Integrated Marketing Manager Relationship Specialty Start Date End Date Elsewhere, Pcp PCP - General Family Medicine 01/29/20 documented as of this encounter
--- OUTSIDE RECORDS SUMMARY | 2023-09-27 09:26 | XMS_ITS | Referral Summary ---
Author Name Unknown Organization [facility] Address [address] [place] [address] Care Team Providers Care Rough And Truing Machine Operator Name Role Phone Elsewhere, Pcp Primary Care Provider Unavailabl e Source Comments Patient records contain information from all sites at [facility]. For routine questions regarding patient records, call [phone] during business hours, M-F 8:00 AM - 5:00 PM Central Time. Record requests for emergency care only can be directed to [phone] at any time.[facility] Encounters Date Type Department Care Team Description 09/13/2023 Documentation Division of Nephrology and Hypertension in [place], [place] [address] [place] [address] Haseeb Menon Jr., D.OFei 09/13/2023 Orders Only Division of Nephrology and Hypertension in [place], [place] [address] [place] [address] Haseeb Menon Jr., D.O. 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 09/09/2023 Orders Only Division of Nephrology and Hypertension in [place], [place] [address] [place] [address] Haseeb Menon Jr., D.O. 09/09/2023 Clinical Communication Division of Nephrology and Hypertension in [place], [place] [address] [place] [address] Haseeb Menon Jr., D.O. Hypertension 08/16/2023 Documentation Division of Nephrology and Hypertension, [facility], in [place], [place] [address] [place] [address] Ihsan Guardado APRN C.N.P., M.S.N. 08/16/2023 Orders Only Division of Nephrology and Hypertension, [facility], in [place], [place] [address] [place] [address] Ishan Guardado APRN, C.N.P., M.S.N. 08/15/2023 Clinical Communication Division of Nephrology and Hypertension in [place], [place] [address] [place] [address] Haseeb Menon Jr., D.O. New Symptoms 08/09/2023 Documentation Division of Nephrology and Hypertension in [place], [place] [address] [place] [address] Haseeb Menon Jr., D.O. 08/09/2023 Orders Only Division of Nephrology and Hypertension in [place], [place] [address] [place] [address] Haseeb Menon Jr., D.O. 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 Active allopurinoL (ZYLOPRIM) 100 mg tablet [...] 04/21/2018 Restless Leg Syndrome 01/12/2018 Atherosclerosis Of [place] Ar 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 08/08/2017 Hyperlipidemia 07/22/2017 Ulcer Leg Left 04/19/2017 Ulcer Toe Left 04/19/2017 Atherosclerosis Of [place] Ar teries Of Left Leg With Ulceration Of Unspecified Site 04/19/2017 Peripheral Arterial Disease 02/16/2017 Hypertension NOS 02/16/2017 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 Never 03/24/2021 Do [...] Answer Date Recorded PHQ-2 Score 0 10/20/2018 [facility] - Occupational [...] Sex Assigned at Male 03/24/2021 8:[address]ATCHER Gender Identity Male 08/31/2019 2:40 PM CDT [...] AM CDT Clinical Communication Virtual Review in [place], [place] [address] [place] [address] 10/11/2023 1:30 PM CDT Comprehensive Visit [facility] in [address] [address] [place] Andrade APRN, C.N.P., M.S.N. [address] [place] [phone] Medical Devices Implanted Type Area Ribbon Lap Machine Tender Device Identifier Shelf Expiration Date Model / Serial / Lot Patch Vasc Bovine.08cm X 8cm - Flores [id number] Implanted:Qty: 1 on 04/04/2017 Mesh or Patch Other/Legacy - See Implant Description Synovis Description:Device Manufactu rer - Synovis. Body Location - Other. Vascular. Device Status Text - [id number]. Ocular Lens-10/29/2007 Implanted:10/28 by Nato Dougherty APRN, C.N.P., R.N. (Quantity not on file) Ocular Lens Bilateral: Eye Description:Cataract extract ion and insertion of intraocular lens 06/22/2016 09:27 - NATO DOUGHERTY APRN PATIENT ACCESS bilateral Conversions - Default Historical Implant Device [...] 6mm X 29mm X 135cm - Flores [id number] Implanted:Qty: 1 on 03/04/2017 Vascular Graft [place] Description:Device Manufactu rer - [employer]. Device Status Text - [id number]. Stent Vbx [id number] - Flores [id number] Implanted:Qty: 1 on 03/04/2017 Vascular Graft Other/Legacy - See Implant Description [place] Description:Device Manufactu rer - [employer] [employer] Body Location - Other. n/a. Device Status Text - [id number]. Stent Vbx [id number] - Flores [id number] Implanted:Qty: 1 on 03/04/2017 Vascular Graft Other/Legacy - See Implant Description [place] Description:Device Manufactu rer - [employer] [place] [employer] Body Location - Other. n/a. Device Status Text - [id number]. Stent Zilver Ptx 6mm X 40mm - Flores [id number] Implanted:Qty: 1 on 04/04/2017 Vascular Stent Other/Legacy - See Implant Description [employer] Description:Device Manufactu 2heuresavant - [employer]. Body Location - Other. Left. Device Status Text - [id number]. Stent Zilver Ptx 6mm X 60mm - Flores [id number] Implanted:Qty: 1 on 04/04/2017 Vascular Stent Other/Legacy - See Implant Description [employer] Description:Device Manufactu 2heuresavant - [employer]. Body Location - Other. Left. Device Status Text - [id number]. Stent Zilver Ptx 6mm X 80mm - Flores [id number] Implanted:Qty: 1 on 08/31/2017 Vascular Stent Right: Other/Legacy - See Implant Description [employer] / [id number] / Description:Device Manufactu 2heuresavant - [employer]. Body Location - Right. Device Status Text - [id number]. Stent Zilver Ptx 6mm X 40mm - Flores [id number] Implanted:Qty: 1 on 08/31/2017 Vascular Stent Right: Other/Legacy - See Implant Description [employer] / [id number] / Description:Device Manufactu rer - [employer]. Body Location - Right. Device Status Text - [id number]. Stnt Innova Otw [id number] - [id number] Implanted:Qty: 1 on 04/18/2018 by Kemar Velásquez [place] [place] [facility] [place] [employer] 05/23/2020 [id number] / / [id number] Stnt Innova Otw [id number] - [id number] Implanted:Qty: 1 on 05/11/2019 by Kemar Velásquez [place] [place] [facility] [facility] [place] Left: Leg [employer] 09/05/2020 [id number] / / [id number] Procedures Procedure Name Priority Date/Time Associated Diagnosis [...] Renal Disease Acidosis Metabolic Hyperchloremic Atherosclerosis Of [place] Ar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 (HCC) CT ABDOMEN PELVIS WITHOUT IV CONTRAST RAD - Routine (most inpatients and all outpatients) 05/27/2022 4:[address] PATCHER LIPID PANEL, S Routine 02/10/2021 8:27 AM CDT Peripheral Arterial Disease (HCC) Diabetes Mellitus Type 2 With Other Circulatory Complication Hyperglycemic (HCC) 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 LAB BLOOD AD D-ON [facility] [address] [facility] [place] [address] [place] [address] [facility] [place] [address] * HCV Ab Scrn w/Reflex to HCV PCR, Serum (02/17/2023 9:35 AM CDT) HCV Ab Screen, S Negative Negative 02/18/20 3:35 PM CDT [facility] Comment: Biotin has been identified by the transition advisor as a potential interfering substance. Higher concentrations of biotin may be found in multivitamins, hair/nail supplements, and workout supplements. If the result does not match clinical observations, repeat testing after patient refrains from the use of supplements for at least 12 hours. Blood (Blood, Venous) 02/17/2023 9:35 AM CDT 02/17/2023 2:20 PM CDT [facility] - 02/17/2023 3:35 PM CDT Specimen Information: Specimen ID: [id number] Specimen Type: Blood Specimen Collection Start Date: 02/17/2023 ??9:35 AM Specimen Received Date: 02/17/2023 ??2:20 PM Specimen ID: [id number] Specimen Type: Blood Specimen Collection Start Date: 02/17/2023 ??9:35 AM Specimen Received Date: 02/17/2023 ??2:16 PM Haseeb Menon Jr., D.O. LAB MICROBIO LOGY - BLOOD ORDERABLES Performing Organization Address [facility] Co de Phone Number [facility] [address] [place] [address], [facility] MKTO [facility] in [place] [address] [place] [address] * (ABNORMAL) Albumin, Random, Urine (02/17/2023 9:26 AM CDT) Microalbumin 895.0 mg/L 02/17/2023 1:53 PM CDT [facility] Creatinine 42 mg/dL 02/17/2023 12:50 PM CDT [facility] Albumin/Creatinin e Ratio 2131(H) <17 mg/g 02/17/2023 1:53 PM CDT [facility] Urine (Urine, Voided) 02/17/2023 9:26 AM CDT 02/17/2023 11:00 AM CDT Haseeb Menon Jr., D.O. LAB URINE OR DERABLES Performing Organization Address [facility] Co de Phone Number [facility] [address] [place] [address], [place] [facility] in [place] [address] [place] [address] * (ABNORMAL) Hemoglobin A1c (11/25/2022 2:09 PM CDT) Hemoglobin A1c, B 6.2(H) 4.2 - 5.6 % 11/25/2022 4:40 PM CDT [facility] Comment: Hemoglobin A1c values of 5.7-6.4 percent indicate an increased risk for developing diabetes mellitus. In diabetic patients, HbA1c goals should be discussed with healthcare provider. Blood (Blood, Venous) 11/25/2022 2:09 PM CDT 11/25/2022 3:35 PM CDT Haseeb eMnon Jr., D.O. LAB BLOOD AD D-ON [facility] [address] [place] [address], [place] [facility] in [place] [address] [place] [address] * (ABNORMAL) Lipid Panel (02/10/2021 8:27 AM CDT) [facility] Cholesterol, Total 102 mg/dL 2020 10:06 [...] AM CDT Kemar Reyes LAB BLOOD ADD-ON [facility] [address] [place] [address], [place] DTL [facility] [address] [place] [address] from Last 3 Months or Most Recently Relevant to Health Maintenance Advance Directives For more information, please contact: [phone] * Full Code (Latest Code Status on [...] Answer Comments Full Code: Discussed Care Teams Rough And Truing Machine Operator Relationship Specialty Start Date End Date Elsewhere, Pcp PCP - General Family Medicine 01/29/20
--- OUTSIDE RECORDS SUMMARY | 2023-09-27 09:26 | XMS_ITS ---
Author Name Unknown Organization [facility] Address [address] [place] [address] Care Team Providers Care Epic Trainer Name Role Phone Unavailable Unavailable Unavailable Surgery Details Not on file Complications Check Surgery Details section. Procedure Estimated Blood Loss Check Surgery Details section. Procedure Findings Check Surgery Details section. Procedure Specimens Taken Check Surgery Details section.
--- OUTSIDE RECORDS SUMMARY | 2023-09-27 09:26 | XMS_ITS | Encounter Summary ---
Author Name Unknown Organization [facility] Address [address] [place] [address] Care Team Providers Care Cold Roll Catcher Name Role Phone Elsewhere, Pcp Primary Care Provider Unavailabl e Encounter Details Date Type Department Care Team (Late st Contact Info) Description 09/09/2023 Documentation Division of Nephrology and Hypertension in [place], [place] [address] [place] [address] Haseeb Menon Jr., D.O. [address] [place] [address] Social History Tobacco Use Types Packs/Day Years [...] How often do you attend mosque or islam serv ices? Never 03/24/2021 Do [...] your living situation today? I have a [facility] place to live 10/26/2022 Education Answer Date Recorded What is the highest level of school you have completed or the highest degree you have received? 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 [address] [place] [address] documented as of this encounter Visit Diagnoses Not on filedocumented in this encounter Additional Health Concerns Assessment Noted Time PHQ-9 Depression Total Score: 3 01/04/20 18 10:38 AM CDT documented as of this encounter Care Teams Cold Roll Catcher Relationship Specialty Start Date End Date Elsewhere, Pcp PCP - General Family Medicine 01/29/20 documented as of this encounter
--- OUTSIDE RECORDS SUMMARY | 2023-09-27 09:26 | XMS_ITS | Encounter Summary ---
Author Name Unknown Organization [facility] Address [address] [place] [address] Care Team Providers Care Cook Pie Name Role Phone Elsewhere, Pcp Primary Care Provider Unavailabl e Encounter Details Date Type Department Care Team (Late st Contact Info) Description 09/09/2023 Orders Only Division of Nephrology and Hypertension in [place], [place] [address] [place] [address] Haseeb Menon Jr., D.O. [address] [place] [address] Social History Tobacco Use Types Packs/Day Years [...] How often do you attend baptist or adventism serv ices? Never 03/24/2021 Do [...] Date Recorded PHQ-2 Score 0 10/20/2018 [facility]at ional Health [...] living situation today? I have a [facility] place to live 10/26/2022 Education Answer Date Recorded What is the highest level of school you have completed or the highest degree you have received? 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/2021 8:13 PM BLOCK AND CASE MAKER Gender Identity Male 08/31/2019 2:40 PM CDT Sexual Orientation Straight 08/31/2019 2: 40 PM CDT documented as of this encounter Plan of Treatment Upcoming Encounters Date Type Department Care Team (Latest Contact Info) Description 10/06/2023 10:30 AM CDT Clinical Communication Virtual Review in [place], [place] [address] [place] [address] 10/11/2023 1:30 PM CDT Comprehensive Visit [facility] in [place], [place] [address] [place] [phone] Dallas Andrade, JULIÁN, C.N.P., M.S.N. [address] [place] [phone] documented as of this encounter Visit Diagnoses Not on filedocumented in this encounter Additional Health Concerns Assessment Noted Time PHQ-9 Depression Total Score: 3 01/04/20 18 10:38 AM CDT documented as of this encounter Care Teams Cook Pie Relationship Specialty Start Date End Date Elsewhere, Pcp PCP - General Family Medicine 01/29/20 documented as of this encounter
--- OUTSIDE RECORDS SUMMARY | 2023-09-27 09:26 | XMS_ITS | Encounter Summary ---
Author Name Unknown Organization [facility] Address [address] [place] [address] Care Team Providers Care Steam Shovel Operating Engineer Name Role Phone Elsewhere, Pcp Primary Care Provider Unavailabl e Encounter Details Date Type Department Care Team (Late st Contact Info) Description 08/16/2023 Orders Only Division of Nephrology and Hypertension, [facility], in [place], [place] [address] [place] [address] Ishan Guardado, JULIÁN, C.N.P., M.S.N. [address] [place] [address] Social History Tobacco Use Types Packs/Day Years [...] How often do you attend amish or rastafari serv ices? Never 03/24/2021 Do [...] your living situation today? I have a [facility] place to live 10/26/2022 Education Answer Date Recorded What is the highest level of school you have completed or the highest degree you have received? 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 [address] [place] [phone] documented as of this encounter Visit Diagnoses Not on filedocumented in this encounter Additional Health Concerns Assessment Noted Time PHQ-9 Depression Total Score: 3 01/04/20 18 10:38 AM CDT documented as of this encounter Care Teams Steam Shovel Operating Engineer Relationship Specialty Start Date End Date Elsewhere, Pcp PCP - General Family Medicine 01/29/20 documented as of this encounter
--- OUTSIDE RECORDS SUMMARY | 2023-09-27 09:26 | XMS_ITS | Encounter Summary ---
Author Name Unknown Organization [facility] Address [address] [place] [address] Care Team Providers Care Studio Operations Engineer In Charge Name Role Phone Elsewhere, Pcp Primary Care Provider Unavailabl e Encounter Details Date Type Department Care Team (Late st Contact Info) Description 08/09/2023 Documentation Division of Nephrology and Hypertension in [place], [place] [address] [place] [address] Haseeb Menon Jr., D.O. [address] [place] [address] Social History Tobacco Use Types Packs/Day Years [...] often do you attend roman catholic or voodoo serv ices? Never 03/24/2021 Do [...] living situation today? I have a [facility] place to live 10/26/2022 Education Answer Date Recorded What is the highest level of school you have completed or the highest degree you have received? 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/2021 8:13 PM FIELD TECH Gender Identity Male 08/31/2019 2:40 PM CDT Sexual Orientation Straight 08/31/2019 2: 40 PM CDT documented as of this encounter Progress Notes * Haseeb Menon Jr., D.O. - 08/09/2023 3:25 PM CDT Care coordination-home dialysis clinic note Please see the [facility] sure scripts and Care everywhere note from [...] AM CDT Clinical Communication Virtual Review in [place], [place] [address] [place] [address] 10/11/2023 1:30 PM CDT Comprehensive Visit [facility] in [place], [place] [address] [place] [phone] Dallas Andrade, JULIÁN, C.N.P., M.S.N. [address] [place] [phone] documented as of this encounter Visit Diagnoses Not on filedocumented in this encounter Additional Health Concerns Assessment Noted Time PHQ-9 Depression Total Score: 3 01/04/20 18 10:38 AM CDT documented as of this encounter Care Teams Studio Operations Engineer In Charge Relationship Specialty Start Date End Date Elsewhere, Pcp PCP - General Family Medicine 01/29/20 documented as of this encounter
--- OUTSIDE RECORDS SUMMARY | 2023-09-27 09:26 | XMS_ITS | Clinical Summary ---
Author Name Unknown Organization [facility] Address [address] [place] [address] Care Team Providers Care Customer Service Clerk Name Role Phone Elsewhere, Pcp Primary Care Provider Unavailabl e Source Comments Patient records contain information from all sites at [facility]. For routine questions regarding patient records, call [phone] during business hours, M-F 8:00 AM - 5:00 PM Central Time. Record requests for emergency care only can be directed to [phone] at any time.[facility] Allergies Active Allergy Reactions Criticality Noted Date Comments Gabapentin Other (see comments) Medium 08/04/2020 Dizzy, memory issue Morphine Itching,Rash Medium 02/14/2012 itchy Pregabalin Anaphylaxis High 02/16/2017 swell Gmuauvn-Qwv-Vcz Reductase Inhibitors Myalgia Low 02/13/2014 Medications Medication [...] TAKE ONE CAPSULE BY MOUTH EVERY DAY MOHEL 2 Active allopurinoL (ZYLOPRIM) 100 mg tablet [...] 04/21/2018 Restless Leg Syndrome 01/12/2018 Atherosclerosis Of [place] Ar 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 08/08/2017 Hyperlipidemia 07/22/2017 Ulcer Leg Left 04/19/2017 Ulcer Toe Left 04/19/2017 Atherosclerosis Of [place] Ar teries Of Left Leg With Ulceration Of Unspecified Site 04/19/2017 Peripheral Arterial Disease 02/16/2017 Hypertension NOS 02/16/2017 Hypertension And Chronic Kidney Disease Stage 4 09/23/2016 Overview: Hypertension (HTN) And CKD Stage 1-4 Chief Wheelage Clerk Use Of Insulin Active 09/23/2016 Overview: Chief Wheelage Clerk Use Of Insulin Active Depression Major Recurrent Moderate 06/22/2016 Overview: Depression Major Recurrent Moderate Diabetes Mellitus Type 2 Wit h Other Circulatory Complication 06/22/2016 Overview: DM2 Peripheral Neuropathy Uncontrolled Diagnosis Maintenance Updates May 2023 Encounters Date Type Department Care Team Description 09/13/2023 Documentation Division of Nephrology and Hypertension in [place], [place] [address] [place] [address] Haseeb Menon Jr., D.O. 09/13/2023 Orders Only Division of Nephrology and Hypertension in [place], [place] [address] [place] [address] Haseeb Menon Jr., D.O. Atherosclerosis Of [place] Ar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 (HCC) (Primary Dx); Diabetes Mellitus Type 2 With Other Circulatory Complication (HCC); Anemia Of Chronic Renal Disease; Sleep Apnea 09/09/2023 Documentation Division of Nephrology and Hypertension in [place], [place] [address] [place] [address] Haseeb Menon Jr. D.OFei 09/09/2023 Orders Only Division of Nephrology and Hypertension in [place], [place] [address] [place] [address] Haseeb eMnon Jr., D.O. 09/09/2023 Clinical Communication Division of Nephrology and Hypertension in [place], [place] [address] [place] [address] Haseeb Menon Jr., D.O. Hypertension 08/16/2023 Documentation Division of Nephrology and Hypertension, [facility], in [place], [place] [address] [place] [address] Ishan Guardado APRN C.N.P., M.S.N. 08/16/2023 Orders Only Division of Nephrology and Hypertension, [facility], in [place], [place] [address] [place] [address] Ishan Guardado APRN, C.N.Kinza., M.S.N. 08/15/2023 Clinical Communication Division of Nephrology and Hypertension in [place], [place] [address] [place] [address] Haseeb Menon Jr., D.O. New Symptoms 08/09/2023 Documentation Division of Nephrology and Hypertension in [place], [place] [address] [place] [address] Haseeb Menon Jr., D.O. 08/09/2023 Orders Only Division of Nephrology and Hypertension in [place], [place] [address] [place] [address] Haseeb Menon Jr., D.O. from Last 3 [...] How often do you attend baptist or church serv ices? 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/2021 8:13 PM IT ARCHITECT Gender Identity Male 08/31/2019 2:40 PM [...] AM CDT Clinical Communication Virtual Review in [place], [place] [address] [place] [address] 10/11/2023 1:30 PM CDT Comprehensive Visit Center for [facility] Medicine in [place], [place] [address] [place] [phone] Dallas Andrade, JULIÁN, C.N.P., M.S.N. [address] [place] [phone] Health Maintenance Due Date Last Done Comments [...] history exists Medical Devices Implanted Type Area Open End Spinning Operator Device Identifier Shelf Expiration Date Model / Serial / Lot Patch Vasc Bovine.08cm X 8cm - Flores [id number] Implanted:Qty: 1 on 04/04/2017 Mesh or Patch Other/Legacy - See Implant Description Synovis Description:Device Manufactu rer - Synovis. Body Location - Other. Vascular. Device Status Text - [id number]. Ocular Lens-10/29/2007 Implanted:10/28 by Nato Dougherty, JULIÁN, C.N.P., R.N. (Quantity not on file) Ocular Lens Bilateral: Eye Description:Cataract extract ion and insertion of intraocular lens 06/22/2016 09:27 - NATO DOUGHERTY COMPOUNDING ASSISTANT WIND PLANT MANAGER bilateral Conversions - Default Historical Implant [...] 6mm X 29mm X 135cm - Flores [id number] Implanted:Qty: 1 on 03/04/2017 Vascular Graft [place] Description:Device Manufactu rer - [employer]. Device Status Text - [id number]. Stent Vbx [id number] - Flores [id number] Implanted:Qty: 1 on 03/04/2017 Vascular Graft Other/Legacy - See Implant Description [place] Description:Device Manufactu rer - [employer] Body Location - Other. n/a. Device Status Text - [id number]. Stent Vbx [id number] - Flores [id number] Implanted:Qty: 1 on 03/04/2017 Vascular Graft Other/Legacy - See Implant Description [place] Description:Device Manufactu rer - [employer] [employer] Body Location - Other. n/a. Device Status Text - [id number]. Stent Zilver Ptx 6mm X 40mm - Flores [id number] Implanted:Qty: 1 on 04/04/2017 Vascular Stent Other/Legacy - See Implant Description [employer] Description:Device Manufactu rer - Remember [employer]. Body Location - Other. Left. Device Status Text - [id number]. Stent Zilver Ptx 6mm X 60mm - Flores [id number] Implanted:Qty: 1 on 04/04/2017 Vascular Stent Other/Legacy - See Implant Description [employer] Description:Device Manufactu rer - Remember [employer]. Body Location - Other. Left. Device Status Text - [id number]. Stent Zilver Ptx 6mm X 80mm - Flores [id number] Implanted:Qty: 1 on 08/31/2017 Vascular Stent Right: Other/Legacy - See Implant Description [employer] / [id number] / Description:Device Manufactu rer - Remember [employer]. Body Location - Right. Device Status Text - [id number]. Stent Zilver Ptx 6mm X 40mm - Flores [id number] Implanted:Qty: 1 on 08/31/2017 Vascular Stent Right: Other/Legacy - See Implant Description [employer] / [id number] / Description:Device Manufactu Doodle Mobile - Remember [employer]. Body Location - Right. Device Status Text - [id number]. Stnt Innova Otw [id number] - [id number] Implanted:Qty: 1 on 04/18/2018 by Kemar Velásquez M.B.B.S. at [facility] Vascular Stent [place] [employer] 05/23/2020 [id number] / / [id number] Stnt Innova Otw [id number] - [id number] Implanted:Qty: 1 on 05/11/2019 by Kemar Velásquez M.B.B.S. at [facility] Vascular Stent Left: Leg [employer] [employer] 09/05/2020 [id number] / / [id number] Procedures Procedure Name Priority Date/Time Associated Diagnosis [...] Renal Disease Acidosis Metabolic Hyperchloremic Atherosclerosis Of [place] Ar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 (HCC) CT ABDOMEN PELVIS WITHOUT IV CONTRAST RAD - Routine (most inpatients and all outpatients) 05/27/2022 4:19 PM IT ARCHITECT LIPID PANEL, S Routine 02/10/2021 8:27 AM CDT Peripheral Arterial Disease (HCC) Diabetes Mellitus Type 2 With Other Circulatory Complication Hyperglycemic (HCC) 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) CT CHEST WITHOUT IV CONTRAST RAD - Routine (most inpatients and all outpatients) 05/07/2020 9:29 PM IT ARCHITECT from Last 3 Months or Most Recently [...] AM CDT 02/17/2023 11:01 AM CDT Narrative [facility] - 02/17/2023 4:02 PM CDT Specimen Information: Specimen ID: [id number] Specimen Type: Blood Specimen Collection Start Date: 02/17/2023 ??9:35 AM Specimen Received Date: 02/17/2023 11:01 AM Specimen ID: [id number] Specimen Type: Blood Specimen Collection Start Date: 02/17/2023 ??9:35 AM Specimen Received Date: 02/17/2023 ??3:35 PM Estiven He Jr.O. LAB BLOOD AD D-ON [facility] [address] [place] [address], [facility] in [address] [place] [address] A[facility] - [facility] [address] [place] [address] * HCV Ab Scrn w/Reflex to HCV PCR, Serum (02/17/2023 9:35 AM CDT) Pathologist [facility] HCV Ab Screen, S Negative Negative 02/18/20 3:35 PM CDT MKTO Comment: Biotin has been identified by the salesperson burial needs as a potential interfering substance. Higher concentrations of biotin may be found in multivitamins, hair/nail supplements, and workout supplements. If the result does not match clinical observations, repeat testing after patient refrains from the use of supplements for at least 12 hours. Blood (Blood, Venous) 02/17/2023 9:35 AM CDT 02/17/2023 2:20 PM CDT Narrative [facility] - 02/17/2023 3:35 PM CDT Specimen Information: Specimen ID: [id number] Specimen Type: Blood Specimen Collection Start Date: 02/17/2023 ??9:35 AM Specimen Received Date: 02/17/2023 ??2:20 PM Specimen ID: [id number] Specimen Type: Blood Specimen Collection Start Date: 02/17/2023 ??9:35 AM Specimen Received Date: 02/17/2023 ??2:16 PM Haseeb Menon Jr. DFeiO. LAB MICROBIO LOGY - BLOOD ORDERABLES [facility] [address] [place] [address], [facility] in [place] [address] [place] [address] * (ABNORMAL) Albumin, Random, Urine (02/17/2023 9:26 AM CDT) Pathologist [facility] Microalbumin 895.0 mg/L 02/17/2023 1:53 PM CDT OWAT Creatinine 42 mg/dL 02/17/2023 12:50 PM CDT OWAT Albumin/Creatinin e Ratio 2131(H) <17 mg/g 02/17/2023 1:53 PM CDT OW[facility] Urine (Urine, Voided) 02/17/2023 9:26 AM CDT 02/17/2023 11:00 AM CDT Haseeb Menon Jr., D.O. LAB URINE OR DERABLES Performing Organization Address [facility] Co de Phone Number [facility] [address] [place] [address], [place] OW[facility] in [place] [address] [place] [address] * (ABNORMAL) Hemoglobin A1c (11/25/2022 2:09 PM [...] LAB BLOOD AD D-ON Performing Organization Address [facility] Co de Phone Number [facility] [address] [place] [address], [place] [facility] in [place] [address] [place] [address] * (ABNORMAL) Lipid Panel (02/10/2021 8:27 AM [...] AM CDT Kemar Reyes LAB BLOOD ADD-ON [facility] [address] [place] [address], [facility] [address] [place] [address] from Last 3 Months or Most Recently Relevant to Health Maintenance Advance Directives For more information, please contact: [phone] * Full Code (Latest Code Status on [...] Answer Comments Full Code: Discussed Care Teams Customer Service Clerk Relationship Specialty Start Date End Date Elsewhere, Pcp PCP - General Family Medicine 01/29/20
--- OUTSIDE RECORDS SUMMARY | 2023-09-27 09:26 | XMS_ITS | Encounter Summary ---
Author Name Unknown Organization [facility] Address [address] [place] [address] Care Team Providers Care Pulmonary Physical Therapist Name Role Phone Elsewhere, Pcp Primary Care Provider Unavailabl e Reason for Referral * Outpatient (Routine) - Authorized Specialty Diagnoses / Procedures Referred By Robi hong Referred To Contact Sleep Medicine Diagnoses Atherosclerosis Of [place] Ar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 (HCC) Diabetes Mellitus Type 2 With Other Circulatory Complication (HCC) Anemia Of Chronic Renal Disease Sleep Apnea Haseeb Menon Jr., D.OFei [address] [place] [address] [facility] Referral ID Status Reason Start Date Expiration Date Visits Requested Visits Authorized [id number] Authorized Specialty Services Required 09/13/2023 03/14/2025 1 1 Encounter Details Date Type Department Care Team (Latest Contact Info) Description 09/13/2023 Orders Only Division of Nephrology and Hypertension in [place], [place] [address] [place] [address] Haseeb Menon Jr., D.OFei [address] [place] [address] Atherosclerosis Of [place] Arteries Of Extremities [...] How often do you attend restorationist or rastafari serv ices? Never 03/24/2021 Do [...] 0 10/20/2018 [facility] - Occupational Stress Questionnaire Answer Date [...] Sex Assigned at Male 03/24/2021 8:13 PM EMERGENCY MEDICAL DISPATCHER Gender Identity Male 08/31/2019 2:40 PM CDT Sexual Orientation Straight 08/31/2019 2: 40 PM CDT documented as of this encounter Plan of Treatment Upcoming Encounters Date Type Department Care Team (Latest Contact Info) Description 10/06/2023 10:30 AM CDT Clinical Communication Virtual Review in [place], [place] [address] [place] [address] 10/11/2023 1:30 PM CDT Comprehensive Visit Center for Sleep Medicine in [place], [place] [address] [place] [phone] Dallas Andrade, JULIÁN, C.N.P., M.S.N. [address] [place] [phone] Scheduled Referrals Name Type Priority Associated Diagnoses Orde r Schedule Sleep Medicine - General consult (clinic) Outpatient Referral Routine Atherosclerosis Of [place] Ar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 (HCC) Diabetes Mellitus Type 2 With Other Circulatory Complication (HCC) Anemia Of Chronic Renal Disease Sleep Apnea Expected: 09/13/2023, Expires: 12/12/2024 documented as of this encounter Visit Diagnoses Diagnosis Atherosclerosis Of [place] Ar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 (HCC)- Primary Diabetes Mellitus Type 2 With Other Circulatory Complication (HCC) Anemia Of Chronic Renal Disease Sleep Apnea documented in this encounter Additional Health Concerns Assessment Noted Time PHQ-9 Depression Total Score: 3 01/04/20 18 10:38 AM CDT documented as of this encounter Care Teams Pulmonary Physical Therapist Relationship Specialty Start Date End Date Elsewhere, Pcp PCP - General Family Medicine 01/29/20 documented as of this encounter
--- OUTSIDE RECORDS SUMMARY | 2023-09-27 09:27 | XMS_ITS | Encounter Summary ---
Author Name Unknown Organization [facility] Address [address] [place] [address] Care Team Providers Care Assistant Toddler Teacher Name Role Phone Elsewhere, Pcp Primary Care Provider Unavailpaola e Encounter Details Date Type Department Care Team (Late st Contact Info) Description 08/19/2016 Historical Ophthalmology [facility] Chalo Holland Jr., M.D. [address] [place] [address] Social History Tobacco Use Types Packs/Day Years Used Date Smoking Tobacco: Every Day Sex and Gender Information Value Date Recorded Sex Assigned at Male 03/24/2021 8:13 PM SAMPLE STEAMER Gender Identity Male 08/31/2019 2:40 PM CDT [...] IOL OU CDM Reports - EYEGEN Id: [id number] Status: Fnl documented in this encounter Plan of Treatment Upcoming Encounters Date Type Department Care Team (Latest Contact Info) Description 10/06/2023 10:30 AM CDT Clinical Communication Virtual Review in [place], [place] [address] [place] [address] 10/11/2023 1:30 PM CDT Comprehensive Visit Center for [facility] Medicine in [place], [place] [address] [place] [phone] Dallas Andrade, JULIÁN, C.N.P., M.S.N. [address] [place] [phone] documented as of this encounter Visit Diagnoses Not on filedocumented in this encounter Additional Health Concerns Infection Onset Date Last Indicated Resolved Time COVID19 Pending 05/08/2020 05/08/2020 05/08/2020 2 :44 PM SAMPLE STEAMER Assessment Noted Time PHQ-9 Depression Total Score: 7 08/17/19 17 9:01 AM CDT documented as of this encounter Care Teams Assistant Toddler Teacher Relationship Specialty Start Date End Date Elsewhere, Pcp PCP - General Family Medicine 01/29/20 documented as of this encounter
== END 2023-09-27 09:24 | disposition home or self-care (01) ==
LOC: WOUND 09:23
PROVIDERS: PCP Family Medicine; Visit Provider Nurse Practitioner Family
DX: E11.621 Type 2 diabetes mellitus with foot ulcer (principal); M86.8X7 Other osteomyelitis, ankle and foot; L97.514 Non-pressure chronic ulcer of other part of right foot with necrosis of bone; E11.22 Type 2 diabetes mellitus with diabetic chronic kidney disease; N18.5 Chronic kidney disease, stage 5; I89.0 Lymphedema, not elsewhere classified; Z99.2 Dependence on renal dialysis; Z96.41 Presence of insulin pump (external) (internal)
CPT/HCPCS: 11043; 96372; J0696

== ENCOUNTER 2023-10-04 09:20 | Outpatient (CLI) | payer MEDICARE, BC, SELFPAY ==
--- OUTSIDE RECORDS SUMMARY | 2023-10-04 09:23 | XMS_ITS | Clinical Summary ---
Author Name Unknown Organization [employer] [facility] Address [place], [place] [address] Care Team Providers Care Conveyor Line Battery Charger Name Role Phone Casa Lucia MD Unavailable Unavailable Rudy Riddle MD Unavailable [phone] Rudy Riddle MD Primary Care Provider + Allergies Active Allergy Reactions Criticality Noted Date Comments Gabapentin Other - Describe In Comment Field Medium 08/04/2020 Dizzy, memory issue Dizzy, memory issue Morphine Itching 02/04/2010 After 3 days of use Pregabalin Anaphylaxis,Itching High 02/16/2017 swell swell Egpqkdi-Dzt-Mrt Reductase Inhibitors Myalgia 02/13/2014 Medications Medication Sig [...] Department Care Team Description 09/13/2023 Lab Requisition [facility] [phone] Unknown, Doctor from Last 3 Months Immunizations [...] Comments Blood Pressure 162/87 07/21/2022 9:21 PM BULL GANG SUPERVISOR Pulse 100 07/21/2022 9:21 PM BULL GANG SUPERVISOR Temperature 37.1 ??C (98.8 ??F) 07/21/2022 8:51 PM CS T Respiratory Rate 18 07/21/2022 8:51 PM BULL GANG SUPERVISOR Oxygen Saturation 96% 07/21/2022 9:21 PM BULL GANG SUPERVISOR Inhaled Oxygen Concentration - - Weight 83.9 kg (185 lb) 07/21/2022 5:35 PM BULL GANG SUPERVISOR Height 175.3 cm (5' 9) 07/21/2022 5:35 PM BULL GANG SUPERVISOR Body Mass Index 27.32 07/21/2022 5:35 PM BULL GANG SUPERVISOR Plan of Treatment Health Maintenance Due Date [...] age 77 05/12/203205/12, 02/04/2006 (Completed outside of [facility]) Tdap Completed 08/16/2016 Pneumococcal series [...] 0 AM CDT COLONOSCOPY 05/12/2022 8:51 AM BULL GANG SUPERVISOR LIPID PANEL W REFLEX MEASURED LDL Routine 02/16/2016 8:59 AM CDT Hyperlipidemia, unspecified hyperlipidemia type from Last 3 Months or Most Recently Relevant to Health Maintenance Results * LAB TRACKING EVENT (09/13/2023 11:00 AM CDT) Other (Other) Client Collect / Unknown 09/13/2023 11:00 AM CDT 09/13/2023 9:30 PM CDT Doctor Unknown LAB BILL ONLY [facility] [address] [place] [address], * PATH TISSUE EXAM (09/13/2023 11:00 AM CDT) Case Report Pathology Report ?Case: [id number] ? Authorizing Provider: ??Unknown, Doctor ?Collected: ? 09/13/2023 1100 ? Ordering Location: ? [facility] ?Received: ?09/14/2023 1033 ? Pathologist: ? Anson Hale MD ? Specimen: ?Right foot ? 09/16/2023 7:47 AM [facility] ENTRAL LABORATORY Final Diagnosis A) FOOT, RIGHT, BIOPSY: 1. Bone with acute and chronic osteomyelitis 09/16/2023 7:47 AM [facility] Comment The specific bone that was biopsied is not provided. 09/16/2023 7:47 AM [facility] Clinical Information Right foot, assess for osteomyelitis. 09/16/2023 7:47 AM [facility] ENTRAL LABORATORY Gross Description A) Received in formalin, labeled with the patient's name and date of , is a 1.8 x 0.5 x 0.2 cm aggregate of suresh-pink soft tissue fragments admixed with pale-suresh bone. ??The specimen is submitted entirely, in toto in 1 cassette. [facility] 09/14/2023 ?? 09/16/2023 7:47 AM [facility] Microscopic Description The final diagnosis is based on microscopic examination of appropriate sections of all specimens. 09/16/2023 7:47 AM CDT [facility]-C ENTRAL LABORATORY Additional Information Interpreted at [facility] - [address], [place] [address] 09/16/2023 7:47 AM CDT [facility]- EN[facility] Other (Right foot) 09/13/2023 11:00 AM CDT 09/14/2023 10:33 AM CDT Doctor Unknown PATHOLOGY/CYTOLOGY [facility] [address] [place] [address], [place] * COLONOSCOPY (05/12/2022 8:51 AM BULL GANG SUPERVISOR) 05/12/2022 8:51 AM BULL GANG SUPERVISOR Narrative Transcriptions Lukas West MD - 05/12/2022 9:03 AM [facility] Patient Name: Onesimo Walton Procedure Date: 05/12/2022 Gender: Male Date of : 1950 Admit Type: Inpatient Procedure: Colonoscopy Proceduralist: Lukas West MD [facility] Indications/Pre-Op Diagnosis: Anemia. Bacteremia Medications: Monitored Anesthesia Care Procedure Description: The patient had risks, benefits and alternatives explained to andgave informed consent. The patient had a stable cardiopulmonary status and judged an adequate candidate for conscious sedation. The [id number] endoscope was passed through the anus and [...] Furthermanagement is per the primary team. Call [facility] back if any questions orconcerns. Lukas West MD 05/12/2022 9:03:39 AM This report has been signed electronically. Note Initiated On: 05/12/2022 8:51 AM Lukas West MD PROCEDURE ORD * (ABNORMAL) LIPID PANEL W REFLEX MEASURED LDL (02/16/2016 8:59 AM CDT) CHOLESTEROL,TOTAL 178 100 - 199 mg/dL 02/16/2016 11:02 AM [facility] TRIGLYCERIDES 232(H) <150 mg/dL 02/16/2016 11:02 AM [facility] HDL CHOLESTEROL 31(L) >40 mg/dL 02/16/2016 11:02 AM [facility] NON-HDL CHOLESTEROL 147(H) <145 mg/dl 02/16/2016 11:02 AM [facility] CHOL/HDL RATIO 5.74(H) <4.50 02/16/2016 11:02 AM [facility] LDL CHOLESTEROL 101 <=130 mg/dL 02/16/2016 11:02 AM CDT [facility] PATIENT STATUS FASTING 02/16/2016 11:02 AM CDT [facility] Blood BLOOD SPECIMEN / Unknown Venipuncture / Unknown 02/16/2016 8:59 AM CDT 02/16/2016 8:59 AM CDT Rudy Riddle MD CHEMISTRY [facility] [address] [place], [place] [id number] [place] [address] [address] [place] [address], [place] [phone] from Last 3 Months or Most Recently [...] Preferences, Provider to review later Care Teams Conveyor Line Battery Charger Relationship Specialty Start Date End Date Rudy Riddle MD [address] [place] [address] PCP - General Family Practice 05/25/22 Casa Lucia MD [address] [facility] [address] [place] [address] Ophthalmology Ophthalmology Surgery 12/22/11 Rudy Riddle MD [address] [place] [address] Family Practice 05/07/22
--- OUTSIDE RECORDS SUMMARY | 2023-10-04 09:23 | XMS_ITS | Continuity of Care Document ---
Author Name Unknown Organization [facility] Address [address] [place] [address] Phone Care Team Providers Care Batter Mixer Name Role Phone Dot Warner Unavailable Unavailable Medications Medication Instructions Dosage Effective Dates (start - stop) Status Comments AMPICILLIN-SULBACTAM (unknown strength) Not Available - Active MINOCYCLINE HCL (unknown strength) Not Available - Active Procedures Procedure Date Office/Outpatient Visit,Est, Mod 2022 OFFICE/OUTPATIENT VISIT EST Phone Office/Outpatient Visit,Est, Mod 2022 Followup Hospital Care, [facility] 2021 Advance Directives Directive Yes / No Effective Date File Name No Information Encounters Encounter Description Practice Location Reason(s) For Visit Diagnoses Date Provider Providers Copied on Encounter [facility], [address], [place], [place], [id number] , [place] tel: [phone] [facility] - [facility] No Information 3 Kindra Chris. [facility], [address] [place] [address] [address], [place], [address], [place]. tel: [phone] Office/Outpa tient Visit,Est, Mod [facility], [address], [place], [place], [id number] , [place] tel: [phone] [facility] - [facility] Spinal stenosis, lumbar region with neurogenic claudication 3 Camille Bob. [facility], [address] [place] [address], [address], [place], [address], [place]. tel: [phone] Referring Provider: Lisbeth Thomas, [facility] [address], [address], [place], [address]. [phone] OFFICE/OUTPA TIENT VISIT EST Phone [facility], [address], [place], [place], [id number] , [place] tel:[phone] [facility] No Information 3 Obrien Lisbeth. [facility] [place], [address], [address], [place], [address], [place]. tel:[phone] Referring Provider: Lisbeth Thomas, [facility] [address], [address], [place], [address]. tel:[phone] Office/Outpa tient Visit,Est, Mod [facility], [address], [place], [place], [id number] , [place] [phone] [facility] Low back pain, unspecifiedOther specified soft tissue disorders 3 Obrien Lisbeth. [facility] [place], [address], [address], [place], [address], [place]. tel:[phone] Referring Provider: Lisbeth Thomas, [facility] [address], [address], [place], [address]. tel:[phone] Followup Hospital Care, Moderate [facility], [address], [place], [place], [id number] , [place] [phone] [facility] No Information 2 Nicolasana paula Velez. [facility], [address], [address], [place], [address], [place]. tel:[phone] Referring Provider: Rudy Riddle, [facility] [address], [address]. tel:[phone] Family History Family Member Type Diagnosis Age At Onset No Information Payers Payer name Insurance type Covered democrat ID Authorjaimea [id number](s) [id number] Medicare [facility] [id number] 1 Social History Type Description Quantity Date [...]
--- OUTSIDE RECORDS SUMMARY | 2023-10-04 09:23 | XMS_ITS | Clinical Summary ---
Author Name Unknown Organization [facility] Address [address] [place] [address] Care Team Providers Care Harbor Engineer Name Role Phone Elsewhere, Pcp Primary Care Provider Unavailabl e Source Comments Patient records contain information from all sites at [facility]. For routine questions regarding patient records, call [phone] during business hours, M-F 8:00 AM - 5:00 PM Central Time. 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 2 Active allopurinoL (ZYLOPRIM) 100 mg tablet [...] 04/21/2018 Restless Leg Syndrome 01/12/2018 Atherosclerosis Of [place] Ar 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 08/08/2017 Hyperlipidemia 07/22/2017 Ulcer Leg Left 04/19/2017 Ulcer Toe Left 04/19/2017 Atherosclerosis Of [place] Ar teries Of Left Leg With Ulceration Of Unspecified Site 04/19/2017 Peripheral Arterial Disease 02/16/2017 Hypertension NOS 02/16/2017 Hypertension And Chronic Kidney Disease Stage 4 09/23/2016 Overview: Hypertension (HTN) And CKD Stage 1-4 Drum Sander Use Of Insulin Active 09/23/2016 Overview: Drum Sander Use Of Insulin Active Depression Major Recurrent Moderate 06/22/2016 Overview: Depression Major Recurrent Moderate Diabetes Mellitus Type 2 Wit h Other Circulatory Complication 06/22/2016 Overview: DM2 Peripheral Neuropathy Uncontrolled Diagnosis Maintenance Updates May 2023 Encounters Date Type Department Care Team Description 09/13/2023 Documentation Division of Nephrology and Hypertension in [place], [place] [address] [place] [address] Haseeb Menon Jr., D.O. 09/13/2023 Orders Only Division of Nephrology and Hypertension in [place], [place] [address] [place] [address] Haseeb Menon Jr., D.O. Atherosclerosis Of [place] Ar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 (HCC) (Primary Dx); Diabetes Mellitus Type 2 With Other Circulatory Complication (HCC); Anemia Of Chronic Renal Disease; Sleep Apnea 09/09/2023 Documentation Division of Nephrology and Hypertension in [place], [place] [address] [place] [address] Haseeb Menon Jr. D.OFei 09/09/2023 Orders Only Division of Nephrology and Hypertension in [place], [place] [address] [place] [address] Haseeb Menon Jr., D.O. 09/09/2023 Clinical Communication Division of Nephrology and Hypertension in [place], [place] [address] [place] [address] Haseeb Menon Jr., D.O. Hypertension 08/16/2023 Documentation Division of Nephrology and Hypertension, [facility], in [place], [place] [address] [place] [address] Ishan Guardado APRN C.N.P., M.S.N. 08/16/2023 Orders Only Division of Nephrology and Hypertension, [facility], in [place], [place] [address] [place] [address] Ishan Guardado APRN, C.N.Kinza., M.S.N. 08/15/2023 Clinical Communication Division of Nephrology and Hypertension in [place], [place] [address] [place] [address] Haseeb Menon Jr., D.O. New Symptoms 08/09/2023 Documentation Division of Nephrology and Hypertension in [place], [place] [address] [place] [address] Haseeb Menon Jr., D.O. 08/09/2023 Orders Only Division of Nephrology and Hypertension in [place], [place] [address] [place] [address] Haseeb Menon Jr., D.O. from Last 3 [...] polyps Brother 2 Armand Diabetes Brother 2 Aramnd Heart disease Brother 2 Armand Stroke Brother [...] often do you attend confucianist or yarsanism serv ices? Never 03/24/2021 Do [...] Date Recorded PHQ-2 Score 0 10/20/2018 [facility] - [...] your living situation today? [facility] 10/26/2022 Education Answer Date Recorded What is the highest level of school you have completed or the highest degree you have received? 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/2021 8:13 PM VICE CHAIR Gender Identity Male 08/31/2019 2:40 PM CDT [...] AM CDT Clinical Communication Virtual Review in [place], [place] [address] [place] [address] 10/11/2023 1:30 PM CDT Comprehensive Visit [facility] in [place], [place] [address] [place] [address] [place] Andrade, JULIÁN, C.N.P., M.S.N. [address] [place] [phone] Health Maintenance Due Date Last Done Comments [...] history exists Medical Devices Implanted Type Area Cognos Lead Device Identifier Shelf Expiration Date Model / Serial / Lot Patch Vasc Bovine.08cm X 8cm - Flores [id number] Implanted:Qty: 1 on 04/04/2017 Mesh or Patch Other/Legacy - See Implant Description Synovis Description:Device Manufactu rer - Synovis. Body Location - Other. Vascular. Device Status Text - [id number]. Ocular Lens-10/29/2007 Implanted:10/28 by Nato Dougherty, JULIÁN, C.N.P., R.N. (Quantity not on file) Ocular Lens Bilateral: Eye Description:Cataract extract ion and insertion of intraocular lens 06/22/2016 09:27 - [employer] [place] INDIAN NANNY MOTION STUDY TECHNICIAN bilateral Conversions - Default Historical Implant [...] 6mm X 29mm X 135cm - Flores [id number] Implanted:Qty: 1 on 03/04/2017 Vascular Graft Hudson Description:Device Manufactu rer - [employer]. Device Status Text - [id number]. Stent Vbx [id number] - Flores [id number] Implanted:Qty: 1 on 03/04/2017 Vascular Graft Other/Legacy - See Implant Description Hudson Description:Device Manufactu rer - [employer] Body Location - Other. n/a. Device Status Text - [id number]. Stent Vbx [id number] - Flores [id number] Implanted:Qty: 1 on 03/04/2017 Vascular Graft Other/Legacy - See Implant Description Hudson Description:Device Manufactu rer - [employer] Body Location - Other. n/a. Device Status Text - [id number]. Stent Zilver Ptx 6mm X 40mm - Flores [id number] Implanted:Qty: 1 on 04/04/2017 Vascular Stent Other/Legacy - See Implant Description [employer] Description:Device Manufactu rer - [employer]. Body Location - Other. Left. Device Status Text - [id number]. Stent Zilver Ptx 6mm X 60mm - Flores [id number] Implanted:Qty: 1 on 04/04/2017 Vascular Stent Other/Legacy - See Implant Description [employer] Description:Device Manufactu rer - [employer]. Body Location - Other. Left. Device Status Text - [id number]. Stent Zilver Ptx 6mm X 80mm - Flores [id number] Implanted:Qty: 1 on 08/31/2017 Vascular Stent Right: Other/Legacy - See Implant Description [employer] / [id number] / Description:Device Manufactu rer - [employer]. Body Location - Right. Device Status Text - [id number]. Stent Zilver Ptx 6mm X 40mm - Flores [id number] Implanted:Qty: 1 on 08/31/2017 Vascular Stent Right: Other/Legacy - See Implant Description [employer] / [id number] / Description:Device Manufactu [employer] - [employer]. Body Location - Right. Device Status Text - [id number]. Stnt Innova Otw [id number] - [id number] Implanted:Qty: 1 on 04/18/2018 by Kemar Velásquez M.B.B.S. at [facility] Vascular Stent [employer] 05/23/2020 [id number] / / [id number] Stnt Innova Otw [id number] - [id number] Implanted:Qty: 1 on 05/11/2019 by Kemar Velásquez M.B.B.S. at [facility] Vascular Stent Left: Leg [employer] 09/05/2020 [id number] / / [id number] Procedures Procedure Name Priority Date/Time Associated Diagnosis [...] Renal Disease Acidosis Metabolic Hyperchloremic Atherosclerosis Of [place] Ar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 (HCC) CT ABDOMEN PELVIS WITHOUT IV CONTRAST RAD - Routine (most inpatients and all outpatients) 05/27/2022 4:19 PM VICE CHAIR LIPID PANEL, S Routine 02/10/2021 8:27 AM CDT Peripheral Arterial Disease (HCC) Diabetes Mellitus Type 2 With Other Circulatory Complication Hyperglycemic (HCC) 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) CT CHEST WITHOUT IV CONTRAST RAD - Routine (most inpatients and all outpatients) 05/07/2020 9:29 PM VICE CHAIR from Last 3 Months or Most Recently [...] AM CDT 02/17/2023 11:01 AM CDT Narrative [facility] - 02/17/2023 4:02 PM CDT Specimen Information: Specimen ID: [id number] Specimen Type: Blood Specimen Collection Start Date: 02/17/2023 ??9:35 AM Specimen Received Date: 02/17/2023 11:01 AM Specimen ID: [id number] Specimen Type: Blood Specimen Collection Start Date: 02/17/2023 ??9:35 AM Specimen Received Date: 02/17/2023 ??3:35 PM Estiven He Jr.O. LAB BLOOD AD D-ON [facility] [address] [place] [address], [facility] [address] [place] [address] AUST [facility] [address] [place] [address] * HCV Ab Scrn w/Reflex to HCV PCR, Serum (02/17/2023 9:35 AM CDT) Pathologist [facility] HCV Ab Screen, S Negative Negative 02/18/20 3:35 PM CDT MKTO Comment: Biotin has been identified by the middle card tender as a potential interfering substance. Higher concentrations of biotin may be found in multivitamins, hair/nail supplements, and workout supplements. If the result does not match clinical observations, repeat testing after patient refrains from the use of supplements for at least 12 hours. Blood (Blood, Venous) 02/17/2023 9:35 AM CDT 02/17/2023 2:20 PM CDT Narrative [facility] - 02/17/2023 3:35 PM CDT Specimen Information: Specimen ID: [id number] Specimen Type: Blood Specimen Collection Start Date: 02/17/2023 ??9:35 AM Specimen Received Date: 02/17/2023 ??2:20 PM Specimen ID: [id number] Specimen Type: Blood Specimen Collection Start Date: 02/17/2023 ??9:35 AM Specimen Received Date: 02/17/2023 ??2:16 PM Haseeb Menon Jr. DFeiO. LAB MICROBIO LOGY - BLOOD ORDERABLES [facility] [address] [place] [address], [facility] in [place] [address] [place] [address] * (ABNORMAL) Albumin, Random, Urine (02/17/2023 9:26 AM CDT) Pathologist [facility] Microalbumin 895.0 mg/L 02/17/2023 1:53 PM CDT [facility] Creatinine 42 mg/dL 02/17/2023 12:50 PM CDT [facility] Albumin/Creatinin e Ratio 2131(H) <17 mg/g 02/17/2023 1:53 PM CDT [facility] Urine (Urine, Voided) 02/17/2023 9:26 AM CDT 02/17/2023 11:00 AM CDT Haseeb Menon Jr., D.O. LAB URINE OR DERABLES Performing Organization Address [facility] Co de Phone Number [facility] [address] [place] [address], [place] [facility] in [place] [address] [place] [address] * (ABNORMAL) Hemoglobin A1c (11/25/2022 2:09 PM [...] BLOOD AD D-ON Performing Organization Address [facility] Co de Phone Number [facility] [address] [place] [address], [place] [facility] [place] [address] [place] [address] * (ABNORMAL) Lipid Panel (02/10/2021 8:27 AM [...] AM CDT Kemar Reyes LAB BLOOD ADD-ON [facility] [address] [place] [address], [facility] [address] [place] [address] from Last 3 Months or Most Recently Relevant to Health Maintenance Advance Directives For more information, please contact: [phone] * Full Code (Latest Code Status on [...] Answer Comments Full Code: Discussed Care Teams Harbor Engineer Relationship Specialty Start Date End Date Elsewhere, Pcp PCP - General Family Medicine 01/29/20
--- OUTSIDE RECORDS SUMMARY | 2023-10-04 09:24 | XMS_ITS | Encounter Summary ---
Author Name Unknown Organization [facility] Address [address] [place] [address] Care Team Providers Care Cooler Service Supervisor Name Role Phone Elsewhere, Pcp Primary Care Provider Unavailpaola e Encounter Details Date Type Department Care Team (Late st Contact Info) Description 08/19/2016 Historical Ophthalmology [facility] Chalo Holland Jr., M.D. [address] [place] [address] Social History Tobacco Use Types Packs/Day Years Used Date Smoking Tobacco: Every Day Sex and Gender Information Value Date Recorded Sex Assigned at Male 03/24/2021 8:13 PM WELDER SHIELDED METAL ARC Gender Identity Male 08/31/2019 2:40 PM CDT [...] IOL OU CDM Reports - EYEGEN Id: [id number] Status: Fnl documented in this encounter Plan of Treatment Upcoming Encounters Date Type Department Care Team (Latest Contact Info) Description 10/06/2023 10:30 AM CDT Clinical Communication Virtual Review in [place], [place] [address] [place] [address] 10/11/2023 1:30 PM CDT Comprehensive Visit [facility] in [place], [place] [address] [place] [phone] Dallas Andrade, JULIÁN, C.N.P., M.S.N. [address] [place] [phone] documented as of this encounter Visit Diagnoses Not on filedocumented in this encounter Additional Health Concerns Infection Onset Date Last Indicated Resolved Time COVID19 Pending 05/08/2020 05/08/2020 05/08/2020 2 :44 PM WELDER SHIELDED METAL ARC Assessment Noted Time PHQ-9 Depression Total Score: 7 08/17/19 17 9:01 AM CDT documented as of this encounter Care Teams Cooler Service Supervisor Relationship Specialty Start Date End Date Elsewhere, Pcp PCP - General Family Medicine 01/29/20 documented as of this encounter
--- OUTSIDE RECORDS SUMMARY | 2023-10-04 09:24 | XMS_ITS | Referral Summary ---
Author Name Unknown Organization [facility] Address [address] [place] [address] Care Team Providers Care Lockstitch Sleeve Setter Name Role Phone Elsewhere, Pcp Primary Care Provider Unavailabl e Source Comments Patient records contain information from all sites at [facility]. For routine questions regarding patient records, call [phone] during business hours, M-F 8:00 AM - 5:00 PM Central Time. Record requests for emergency care only can be directed to [phone] at any time.[facility] Encounters Date Type Department Care Team Description 09/13/2023 Documentation Division of Nephrology and Hypertension in [place], [place] [address] [place] [address] Haseeb Menon Jr., D.OFei 09/13/2023 Orders Only Division of Nephrology and Hypertension in [place], [place] [address] [place] [address] Haseeb Menon Jr., D.O. Atherosclerosis Of [place] Ar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 (HCC) (Primary Dx); Diabetes Mellitus Type 2 With Other Circulatory Complication (HCC); Anemia Of Chronic Renal Disease; Sleep Apnea 09/09/2023 Documentation Division of Nephrology and Hypertension in [place], [place] [address] [place] [address] Haseeb Menon Jr., D.O. 09/09/2023 Orders Only Division of Nephrology and Hypertension in [place], [place] [address] [place] [address] Haseeb Menon Jr., D.O. 09/09/2023 Clinical Communication Division of Nephrology and Hypertension in [place], [place] [address] [place] [address] Haseeb Menon Jr., D.O. Hypertension 08/16/2023 Documentation Division of Nephrology and Hypertension, [facility], in [place], [place] [address] [place] [address] Ishan Guardado APRN C.N.P., M.S.N. 08/16/2023 Orders Only Division of Nephrology and Hypertension, [facility], in [place], [place] [address] [place] [address] Ishan Guardado APRN, C.N.P., M.S.N. 08/15/2023 Clinical Communication Division of Nephrology and Hypertension in [place], [place] [address] [place] [address] Haseeb Menon Jr., D.O. New Symptoms 08/09/2023 Documentation Division of Nephrology and Hypertension in [place], [place] [address] [place] [address] Haseeb Menon Jr., D.O. 08/09/2023 Orders Only Division of Nephrology and Hypertension in [place], [place] [address] [place] [address] Haseeb Menon Jr., D.O. 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 2 Active allopurinoL (ZYLOPRIM) 100 mg [...] 04/21/2018 Restless Leg Syndrome 01/12/2018 Atherosclerosis Of [place] Ar 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 08/08/2017 Hyperlipidemia 07/22/2017 Ulcer Leg Left 04/19/2017 Ulcer Toe Left 04/19/2017 Atherosclerosis Of [place] Ar teries Of Left Leg With Ulceration Of Unspecified Site 04/19/2017 Peripheral Arterial Disease 02/16/2017 Hypertension NOS 02/16/2017 Hypertension And Chronic Kidney Disease Stage 4 09/23/2016 Overview: Hypertension (HTN) And CKD Stage 1-4 Senior Care Use Of Insulin Active 09/23/2016 Overview: Plugger Man Use Of Insulin Active Depression Major Recurrent [...] How often do you attend restorationist or advent serv ices? Never 03/24/2021 Do [...] your living situation today? I have a [facility] place to live 10/26/2022 Education Answer Date Recorded What is the highest level of school you have completed or the highest degree you have received? 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/2021 8:13 PM DECORATING INSPECTOR Gender Identity Male 08/31/2019 2:40 PM [...] AM CDT Clinical Communication Virtual Review in [place], [place] [address] [place] [address] 10/11/2023 1:30 PM CDT Comprehensive Visit [facility] in [address] [address] [place] Andrade APRN, C.N.P., M.S.N. [address] [place] [phone] Medical Devices Implanted Type Area Rn Production Device Identifier Shelf Expiration Date Model / Serial / Lot Patch Vasc Bovine.08cm X 8cm - Flores [id number] Implanted:Qty: 1 on 04/04/2017 Mesh or Patch Other/Legacy - See Implant Description Synovis Description:Device Manufactu rer - Synovis. Body Location - Other. Vascular. Device Status Text - [id number]. Ocular Lens-10/29/2007 Implanted:10/28 by Nato Dougherty APRN, C.N.P., R.N. (Quantity not on file) Ocular Lens Bilateral: Eye Description:Cataract extract ion and insertion of intraocular lens 06/22/2016 09:27 - NATO DOUGHERTY APRN DERMATOLOGY SPECIALIST bilateral Conversions - Default Historical Implant [...] 6mm X 29mm X 135cm - Flores [id number] Implanted:Qty: 1 on 03/04/2017 Vascular Graft Beverly Description:Device Manufactu rer - [employer]. Device Status Text - [id number]. Stent Vbx [id number] - Flores [id number] Implanted:Qty: 1 on 03/04/2017 Vascular Graft Other/Legacy - See Implant Description Beverly Description:Device Manufactu rer - [employer] Body Location - Other. n/a. Device Status Text - [id number]. Stent Vbx [id number] - Flores [id number] Implanted:Qty: 1 on 03/04/2017 Vascular Graft Other/Legacy - See Implant Description Beverly Description:Device Manufactu rer - [employer] Body Location - Other. n/a. Device Status Text - [id number]. Stent Zilver Ptx 6mm X 40mm - Flores [id number] Implanted:Qty: 1 on 04/04/2017 Vascular Stent Other/Legacy - See Implant Description [employer] Description:Device Manufactu Modafirma - [employer]. Body Location - Other. Left. Device Status Text - [id number]. Stent Zilver Ptx 6mm X 60mm - Flores [id number] Implanted:Qty: 1 on 04/04/2017 Vascular Stent Other/Legacy - See Implant Description [employer] Description:Device Manufactu Modafirma - [employer]. Body Location - Other. Left. Device Status Text - [id number]. Stent Zilver Ptx 6mm X 80mm - Flores [id number] Implanted:Qty: 1 on 08/31/2017 Vascular Stent Right: Other/Legacy - See Implant Description [employer]. / [id number] / Description:Device Manufactu Modafirma - [employer]. Body Location - Right. Device Status Text - [id number]. Stent Zilver Ptx 6mm X 40mm - Flores [id number] Implanted:Qty: 1 on 08/31/2017 Vascular Stent Right: Other/Legacy - See Implant Description [employer]. / [id number] / Description:Device Manufactu rer - [employer]. Body Location - Right. Device Status Text - [id number]. Stnt Innova Otw [id number] - [id number] Implanted:Qty: 1 on 04/18/2018 by Kemar Velásquez M.B.B.S. at [facility] Vascular Stent [employer] 05/23/2020 [id number] / / [id number] Stnt Innova Otw [id number] - [id number] Implanted:Qty: 1 on 05/11/2019 by Kemar Velásquez M.B.B.S. at [facility] Vascular Stent Left: Leg [employer] 09/05/2020 [id number] / / [id number] Procedures Procedure Name Priority Date/Time Associated Diagnosis [...] Renal Disease Acidosis Metabolic Hyperchloremic Atherosclerosis Of [place] Ar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 (HCC) CT ABDOMEN PELVIS WITHOUT IV CONTRAST RAD - Routine (most inpatients and all outpatients) 05/27/2022 4:19 PM DECORATING INSPECTOR LIPID PANEL, S Routine 02/10/2021 8:27 AM CDT Peripheral Arterial Disease (HCC) Diabetes Mellitus Type 2 With Other Circulatory Complication Hyperglycemic (HCC) 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) CT CHEST WITHOUT IV CONTRAST RAD - Routine (most inpatients and all outpatients) 05/07/2020 9:29 PM DECORATING INSPECTOR from Last 3 Months or Most Recently [...] AM CDT 02/17/2023 11:[address] [facility] LAB - 02/17/2023 4:02 PM CDT Specimen Information: Specimen ID: [id number] Specimen Type: Blood Specimen Collection Start Date: 02/17/2023 ??9:35 AM Specimen Received Date: 02/17/2023 11:01 AM Specimen ID: [id number] Specimen Type: Blood Specimen Collection Start Date: 02/17/2023 ??9:35 AM Specimen Received Date: 02/17/2023 ??3:35 PM Haseeb Menon Jr., D.O. LAB BLOOD AD D-ON [facility] [address] [facility] [place] [address] [place] [address] [facility] [place] [address] * HCV Ab Scrn w/Reflex to HCV PCR, Serum (02/17/2023 9:35 AM CDT) HCV Ab Screen, S Negative Negative 02/18/20 3:35 PM CDT MKTO Comment: Biotin has been identified by the acid painter as a potential interfering substance. Higher concentrations of biotin may be found in multivitamins, hair/nail supplements, and workout supplements. If the result does not match clinical observations, repeat testing after patient refrains from the use of supplements for at least 12 hours. Blood (Blood, Venous) 02/17/2023 9:35 AM CDT 02/17/2023 2:20 PM CDT [facility] - 02/17/2023 3:35 PM CDT Specimen Information: Specimen ID: [id number] Specimen Type: Blood Specimen Collection Start Date: 02/17/2023 ??9:35 AM Specimen Received Date: 02/17/2023 ??2:20 PM Specimen ID: [id number] Specimen Type: Blood Specimen Collection Start Date: 02/17/2023 ??9:35 AM Specimen Received Date: 02/17/2023 ??2:16 PM Haseeb Menon Jr., D.O. LAB MICROBIO LOGY - BLOOD ORDERABLES Performing Organization Address [facility] Co de Phone Number [facility] [address] [place] [address], [facility] MKTO [facility] in [place] [address] [place] [address] * (ABNORMAL) Albumin, Random, Urine (02/17/2023 9:26 AM CDT) Microalbumin 895.0 mg/L 02/17/2023 1:53 PM CDT [facility] Creatinine 42 mg/dL 02/17/2023 12:50 PM CDT [facility] Albumin/Creatinin e Ratio 2131(H) <17 mg/g 02/17/2023 1:53 PM CDT [facility] Urine (Urine, Voided) 02/17/2023 9:26 AM CDT 02/17/2023 11:00 AM CDT Haseeb Menon Jr., D.O. LAB URINE OR DERABLES Performing Organization Address [facility] Co de Phone Number [facility] [address] [place] [address], [place] OWAT [facility] in [place] [address] [place] [address] * (ABNORMAL) Hemoglobin A1c (11/25/2022 2:09 PM [...] Menon Jr., D.O. LAB BLOOD AD D-ON [facility] [address] [place] [address], [place] OW[place] [facility] in [place] [address] [place] [address] * (ABNORMAL) Lipid Panel (02/10/2021 8:27 AM CDT) [facility] Cholesterol, Total 102 mg/dL 2020 10:06 [...] CDT Kemar Reyes LAB BLOOD ADD-ON [facility] [address] [place] [address], [place] DTL [facility] [address] [place] [address] from Last 3 Months or Most Recently Relevant to Health Maintenance Advance Directives For more information, please contact: [phone] * Full Code (Latest Code Status on [...] Answer Comments Full Code: Discussed Care Teams Lockstitch Sleeve Setter Relationship Specialty Start Date End Date Elsewhere, Pcp PCP - General Family Medicine 01/29/20
--- OUTSIDE RECORDS SUMMARY | 2023-10-04 09:24 | XMS_ITS | Encounter Summary ---
Author Name Unknown Organization [facility] Address [address] [place] [address] Care Team Providers Care Quality Measurement Specialist Name Role Phone Elsewhere, Pcp Primary Care Provider Unavailabl e Encounter Details Date Type Department Care Team (Late st Contact Info) Description 09/09/2023 Documentation Division of Nephrology and Hypertension in [place], [place] [address] [place] [address] Haseeb Menon Jr., D.O. [address] [place] [address] Social History Tobacco Use Types Packs/Day Years [...] How often do you attend synagogue or restorationist serv ices? Never 03/24/2021 Do [...] your living situation today? I have a [facility] place to live 10/26/2022 Education Answer Date Recorded What is the highest level of school you have completed or the highest degree you have received? 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 [address] [place] [address] documented as of this encounter Visit Diagnoses Not on filedocumented in this encounter Additional Health Concerns Assessment Noted Time PHQ-9 Depression Total Score: 3 01/04/20 18 10:38 AM CDT documented as of this encounter Care Teams Quality Measurement Specialist Relationship Specialty Start Date End Date Elsewhere, Pcp PCP - General Family Medicine 01/29/20 documented as of this encounter
--- OUTSIDE RECORDS SUMMARY | 2023-10-04 09:24 | XMS_ITS | Encounter Summary ---
Author Name Unknown Organization [facility] Address [address] [place] [address] Care Team Providers Care Fixer Supervisor Name Role Phone Elsewhere, Pcp Primary Care Provider Unavailabl e Encounter Details Date Type Department Care Team (Late st Contact Info) Description 08/09/2023 Orders Only Division of Nephrology and Hypertension in [place], [place] [address] [place] [address] Haseeb Menon Jr., D.O. [address] [place] [address] Social History Tobacco Use Types Packs/Day Years [...] How often do you attend buddhist or amish serv ices? 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 [address] [place] [address] documented as of this encounter Visit Diagnoses Not on filedocumented in this encounter Additional Health Concerns Assessment Noted Time PHQ-9 Depression Total Score: 3 01/04/20 18 10:38 AM CDT documented as of this encounter Care Teams Fixer Supervisor Relationship Specialty Start Date End Date Elsewhere, Pcp PCP - General Family Medicine 01/29/20 documented as of this encounter
--- OUTSIDE RECORDS SUMMARY | 2023-10-04 09:24 | XMS_ITS | Encounter Summary ---
Author Name Unknown Organization [facility] Address [address] [place] [address] Care Team Providers Care Orchard Sprayer Name Role Phone Elsewhere, Pcp Primary Care Provider Unavailabl e Encounter Details Date Type Department Care Team (Late st Contact Info) Description 09/13/2023 Documentation Division of Nephrology and Hypertension in [place], [place] [address] [place] [address] Haseeb Menon Jr., D.O. [address] [place] [address] Social History Tobacco Use Types Packs/Day Years [...] How often do you attend religion or faith serv ices? Never 03/24/2021 Do [...] your living situation today? I have a [facility] place to live 10/26/2022 Education Answer Date Recorded What is the highest level of school you have completed or the highest degree you have received? 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 - 09/13/2023 9:30 AM CDT Care coordination-dialysis visit: Please see the sure scripts tab, in Care everywhere or the documents tab regarding his full dialysis notes from the [facility] Dialysis home program. Fair amount [...] AM CDT Clinical Communication Virtual Review in [place], [place] [address] [place] [address] 10/11/2023 1:30 PM CDT Comprehensive Visit [facility] in [address] [address] Dallas Andrade, JULIÁN, C.N.P., M.S.N. [address] [place] [phone] documented as of this encounter Visit Diagnoses Not on filedocumented in this encounter Additional Health Concerns Assessment Noted Time PHQ-9 Depression Total Score: 3 01/04/20 18 10:38 AM CDT documented as of this encounter Care Teams Orchard Sprayer Relationship Specialty Start Date End Date Elsewhere, Pcp PCP - General Family Medicine 01/29/20 documented as of this encounter
--- OUTSIDE RECORDS SUMMARY | 2023-10-04 09:24 | XMS_ITS | Encounter Summary ---
Author Name Unknown Organization [facility] Address [address] [place] [address] Care Team Providers Care Dairy Associate Name Role Phone Elsewhere, Pcp Primary Care Provider Unavailabl e Encounter Details Date Type Department Care Team (Late st Contact Info) Description 09/09/2023 Orders Only Division of Nephrology and Hypertension in [place], [place] [address] [place] [address] Haseeb Menon Jr., D.O. [address] [place] [address] Social History Tobacco Use Types Packs/Day Years [...] often do you attend catholic or sabianism serv ices? 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 [address] [place] [phone] documented as of this encounter Visit Diagnoses Not on filedocumented in this encounter Additional Health Concerns Assessment Noted Time PHQ-9 Depression Total Score: 3 01/04/20 18 10:38 AM CDT documented as of this encounter Care Teams Dairy Associate Relationship Specialty Start Date End Date Elsewhere, Pcp PCP - General Family Medicine 01/29/20 documented as of this encounter
--- OUTSIDE RECORDS SUMMARY | 2023-10-04 09:24 | XMS_ITS | Encounter Summary ---
Author Name Unknown Organization [facility] Address [address] [place] [address] Care Team Providers Care Inseam Leveler Name Role Phone Elsewhere, Pcp Primary Care Provider Unavailabl e Reason for Visit * Reason Onset Date Comments New Symptoms 08/15/2023 Encounter Details Date Type Department Care Team (Latest Contact Info) Description 08/15/2023 Clinical Communication Division of Nephrology and Hypertension in [place], [place] [address] [place] [address] Haseeb Menon Jr., D.O. [address] [place] [address] New Symptoms Social History Tobacco Use Types [...] How often do you attend yarsani or mormonism serv ices? Never 03/24/2021 Do [...] Answer Date Recorded PHQ-2 Score 0 10/20/2018 [facility] of Occupat ional Health - Occupational Stress [...] your living situation today? I have a [facility] place to live 10/26/2022 Education Answer Date Recorded What is the highest level of school you have completed or the highest degree you have received? 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 Per his medication database, a [...] The following references were used: other [facility] Pharmacist . * Telephone Encounter - Chloe Lazo - 08/15/2023 10:43 AM CDT Caller is: : Authorization YES Preferred Communication Method: [phone] Reason for call: Pt's , Siria, called [...] AM CDT Clinical Communication Virtual Review in [place], [place] 200 [place] [address] 10/11/2023 1:30 PM CDT Comprehensive Visit [facility] in [place], [place] [address] [place] [phone] Dallas Andrade, JULIÁN, C.N.P., M.S.N. [address] [place] [phone] documented as of this encounter Visit Diagnoses Not on filedocumented in this encounter Additional Health Concerns Assessment Noted Time PHQ-9 Depression Total Score: 3 01/04/20 18 10:38 AM CDT documented as of this encounter Care Teams Inseam Leveler Relationship Specialty Start Date End Date Elsewhere, Pcp PCP - General Family Medicine 01/29/20 documented as of this encounter
--- OUTSIDE RECORDS SUMMARY | 2023-10-04 09:24 | XMS_ITS | Encounter Summary ---
Author Name Unknown Organization [facility] Address [address] [place] [address] Care Team Providers Care Business Intelligence Administrator Name Role Phone Elsewhere, Pcp Primary Care Provider Unavailabl e Encounter Details Date Type Department Care Team (Late st Contact Info) Description 08/16/2023 Orders Only Division of Nephrology and Hypertension, [facility], in [place], [place] [address] [place] [address] Ishan Guardado, JULIÁN, C.N.P., M.S.N. [address] [place] [address] Social History Tobacco Use Types Packs/Day Years [...] How often do you attend hoahaoism or confucianism serv ices? 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 [address] [place] [phone] documented as of this encounter Visit Diagnoses Not on filedocumented in this encounter Additional Health Concerns Assessment Noted Time PHQ-9 Depression Total Score: 3 01/04/20 18 10:38 AM CDT documented as of this encounter Care Teams Business Intelligence Administrator Relationship Specialty Start Date End Date Elsewhere, Pcp PCP - General Family Medicine 01/29/20 documented as of this encounter
--- OUTSIDE RECORDS SUMMARY | 2023-10-04 09:24 | XMS_ITS ---
Author Name Unknown Organization [facility] Address [address] [place] [address] Care Team Providers Care Channel Layer Name Role Phone Unavailable Unavailable Unavailable Surgery Details Not on file Complications Check Surgery Details section. Procedure Estimated Blood Loss Check Surgery Details section. Procedure Findings Check Surgery Details section. Procedure Specimens Taken Check Surgery Details section.
--- OUTSIDE RECORDS SUMMARY | 2023-10-04 09:24 | XMS_ITS | Encounter Summary ---
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) Diabetes Mellitus Type 2 With Other Circulatory Complication (HCC) Anemia Of Chronic Renal Disease Sleep Apnea Haseeb Menon Jr., D.OFei [address] [place] [address] [facility] Referral ID Status Reason Start Date Expiration Date Visits Requested Visits Authorized [id number] Authorized Specialty Services Required 09/13/2023 03/14/2025 1 1 Encounter Details Date Type Department Care Team (Latest Contact Info) Description 09/13/2023 Orders Only Division of Nephrology and Hypertension in [place], [place] [address] [place] [address] Haseeb Menon Jr., D.OFei [address] [place] [phone] Atherosclerosis Of Cheesh-Na Arteries Of Extremities With Intermittent Claudication Right [...] often do you attend alevism or voodoo serv ices? 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
--- OUTSIDE RECORDS SUMMARY | 2023-10-04 09:24 | XMS_ITS | Encounter Summary ---
Author Name Unknown Organization [facility] Address [address] [place] [address] Care Team Providers Care Hog Tender Name Role Phone Elsewhere, Pcp Primary Care Provider Unavailabl e Reason for Visit * Reason Onset Date Comments Hypertension 09/09/2023 Encounter Details Date Type Department Care Team (Latest Contact Info) Description 09/09/2023 Clinical Communication Division of Nephrology and Hypertension in [place], [place] [address] [place] [address] Haseeb Menon Jr., D.O. [address] [place] [address] Hypertension Social History Tobacco Use Types Packs/Day [...] How often do you attend zoroastrianism or alevism serv ices? Never 03/24/2021 Do [...] 0 10/20/2018 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 YES -- Patient is noticing HIGH blood pressure readings today. Should adjustments be made? documented in this encounter Plan of Treatment Upcoming Encounters Date Type Department Care Team (Latest Contact Info) Description 10/06/2023 10:30 AM CDT Clinical Communication Virtual Review in [place], [place] [address] [place] [address] 10/11/2023 1:30 PM CDT Comprehensive Visit [facility] in [place], [place] [address] [place] [address] Dallas Andrade, JULIÁN, C.N.P., M.S.N. [address] [place] [address] documented as of this encounter Visit Diagnoses Not on filedocumented in this encounter Additional Health Concerns Assessment Noted Time PHQ-9 Depression Total Score: 3 01/04/20 18 10:38 AM CDT documented as of this encounter Care Teams Hog Tender Relationship Specialty Start Date End Date Elsewhere, Pcp PCP - General Family Medicine 01/29/20 documented as of this encounter
--- OUTSIDE RECORDS SUMMARY | 2023-10-04 09:24 | XMS_ITS | Encounter Summary ---
Author Name Unknown Organization [facility] Address [address] [place] [address] Care Team Providers Care Register Of Wills Name Role Phone Elsewhere, Pcp Primary Care Provider Unavailabl e Encounter Details Date Type Department Care Team (Late st Contact Info) Description 08/16/2023 Documentation Division of Nephrology and Hypertension, [facility], in [place], [place] [address] [place] [phone] Ishan Guardado, JULIÁN, C.N.P., M.S.N. [address] [place] [phone] Social History Tobacco Use Types Packs/Day Years [...] How often do you attend pentecostalism or adventist serv ices? 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 [address] [place] [phone] documented as of this encounter Visit Diagnoses Not on filedocumented in this encounter Additional Health Concerns Assessment Noted Time PHQ-9 Depression Total Score: 3 01/04/20 18 10:38 AM CDT documented as of this encounter Care Teams Register Of Wills Relationship Specialty Start Date End Date Elsewhere, Pcp PCP - General Family Medicine 01/29/20 documented as of this encounter
--- OUTSIDE RECORDS SUMMARY | 2023-10-04 09:24 | XMS_ITS | Encounter Summary ---
Author Name Unknown Organization [facility] Address [address] [place] [address] Care Team Providers Care Market Maker Name Role Phone Elsewhere, Pcp Primary Care Provider Unavailabl e Encounter Details Date Type Department Care Team (Late st Contact Info) Description 08/09/2023 Documentation Division of Nephrology and Hypertension in [place], [place] [address] [place] [address] Haseeb Menon Jr., D.O. [address] [place] [address] Social History Tobacco Use Types Packs/Day Years [...] How often do you attend presybeterian or gnosticist serv ices? Never 03/24/2021 Do you belong [...] [facility] of Occupat ional Health - Occupational [...] living situation today? I have a [facility] place to live 10/26/2022 Education Answer Date Recorded What is the highest level of school you have completed or the highest degree you have received? 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 - 08/09/2023 3:25 PM CDT Care coordination-home dialysis clinic note Please see the [facility] sure scripts and Care everywhere [...] AM CDT Clinical Communication Virtual Review in [place], [place] 200 [place] [address] 10/11/2023 1:30 PM CDT Comprehensive Visit [facility] in [place], [place] [address] [place] [phone] Dallas Andrade, JULIÁN, C.N.P., M.S.N. [address] [place] [phone] documented as of this encounter Visit Diagnoses Not on filedocumented in this encounter Additional Health Concerns Assessment Noted Time PHQ-9 Depression Total Score: 3 01/04/20 18 10:38 AM CDT documented as of this encounter Care Teams Market Maker Relationship Specialty Start Date End Date Elsewhere, Pcp PCP - General Family Medicine 01/29/20 documented as of this encounter
== END 2023-10-04 09:21 | disposition home or self-care (01) ==
LOC: WOUND 09:21
PROVIDERS: PCP Family Medicine; Visit Provider Nurse Practitioner Family
DX: E11.621 Type 2 diabetes mellitus with foot ulcer (principal); L97.514 Non-pressure chronic ulcer of other part of right foot with necrosis of bone; E11.22 Type 2 diabetes mellitus with diabetic chronic kidney disease; N18.5 Chronic kidney disease, stage 5; I89.0 Lymphedema, not elsewhere classified; Z96.41 Presence of insulin pump (external) (internal); Z99.2 Dependence on renal dialysis
CPT/HCPCS: 11043

== ENCOUNTER 2023-10-11 12:29 | Outpatient (CLI) | payer MEDICARE, BC, SELFPAY ==
--- OUTSIDE RECORDS SUMMARY | 2023-10-11 12:31 | XMS_ITS | Continuity of Care Document ---
Author Organization [facility] Address [address] [place] [address] Phone Care Team Providers Care Boat Loader Helper Name Role Phone Dot Warner Unavailable Unavailable Medications Medication Instructions Dosage Effective Dates (start - stop) Status Comments AMPICILLIN-SULBACTAM (unknown strength) Not Available - Active MINOCYCLINE HCL (unknown strength) Not Available - Active Procedures Procedure Date Office/Outpatient Visit,Est, Mod 2022 OFFICE/OUTPATIENT VISIT EST Phone Office/Outpatient Visit,Est, Mod 2022 Followup Hospital Care, [facility] 2021 Advance Directives Directive Yes / No Effective Date File Name No Information Encounters Encounter Description Practice Location Reason(s) For Visit Diagnoses Date Provider Providers Copied on Encounter [facility], [address], [place], [place], [id number] , [place] tel: [phone] [facility] No Information 3 Kindra Chris. [facility] [place], [address] [place] [address] [address], [place], [address], [place]. tel: [phone] Office/Outpa tient Visit,Est, Mod [facility], [address], [place], [place], [id number] , [place] tel: [phone] [facility] - [facility] [place] Spinal stenosis, lumbar region with neurogenic claudication 3 Camille Bob. [facility], [address] [place] [address], [address], [place], [address], [place]. tel: [phone] Referring Provider: Lisbeth Thomas, [facility] [address], [address], [place], [address]. [phone] OFFICE/OUTPA TIENT VISIT EST Phone [facility], [address], [place], [place], [id number] , [place] [phone] [facility] [place] No Information 3 Obrien Lisbeth. [facility], [address], [address], [place], [address], [place]. [phone] Referring Provider: Lisbeth Thomas, [facility] [address], [address], [place], [address]. [phone] Office/Outpa tient Visit,Est, Mod [facility], [address], [place], [place], [id number] , [place] [phone] [facility] Low back pain, unspecifiedOther specified soft tissue disorders 3 Obrien Lisbeth. [facility] [place], [address], [address], [place], [address], [place]. [phone] Referring Provider: Lisbeth Thomas, [facility] [address], [address], [place], [address]. [phone] Followup Hospital Care, Moderate [facility], [address], [place], [place], [id number] , [place] [phone] [facility] No Information 2 Dhaval Velez. [facility], [address], [address], [place], [address], [place]. [phone] Referring Provider: Rudy Riddle, [facility] And [address], [address]. tel:[phone] Family History Family Member Type Diagnosis Age At Onset No Information Payers Payer name Insurance type Covered constitution party ID Authorjaimealivia durant([place] [id number] Medicare [facility] [id number] 1 Social History Type Description Quantity Date [...]
--- OUTSIDE RECORDS SUMMARY | 2023-10-11 12:32 | XMS_ITS | Clinical Summary ---
Author Organization [facility] Address [place], [place] [address] Care Team Providers Care Health Education Aide Name Role Phone Casa Lucia MD Unavailable Unavailable Rudy Riddle MD Unavailable [phone] Rudy Riddle MD Primary Care Provider + Allergies Active Allergy Reactions Criticality Noted Date Comments Gabapentin Other - Describe In Comment Field Medium 08/04/2020 Dizzy, memory issue Dizzy, memory issue Morphine Itching 02/04/2010 After 3 days of use Pregabalin Anaphylaxis,Itching High 02/16/2017 swetesfaye jane Aenexhu-Mgj-Xnf Reductase Inhibitors Myalgia 02/13/2014 Medications Medication Sig [...] Lab Requisition [facility] [phone] Unknown, Doctor from Last 3 Months Immunizations [...] Comments Blood Pressure 162/87 07/21/2022 9:21 PM SITE COORDINATOR Pulse 100 07/21/2022 9:21 PM SITE COORDINATOR Temperature 37.1 ??C (98.8 ??F) 07/21/2022 8:51 PM CS T Respiratory Rate 18 07/21/2022 8:51 PM SITE COORDINATOR Oxygen Saturation 96% 07/21/2022 9:21 PM SITE COORDINATOR Inhaled Oxygen Concentration - - Weight 83.9 kg (185 lb) 07/21/2022 5:35 PM SITE COORDINATOR Height 175.3 cm (5' 9) 07/21/2022 5:35 PM SITE COORDINATOR Body Mass Index 27.32 07/21/2022 5:35 PM SITE COORDINATOR Plan of Treatment Health Maintenance Due Date [...] 10/09/2013, Additional history exists COVID-19 vaccine series ( season) 2023 Influenza for age 65+ 01/15/2024 03/17/2022 , 03/24/2021, 02/20/2020, Additional history exists Tetanus booster 08/16/2026 08/16/2016, 01/2007, 03/24/2007, Additional history exists Colonoscopy through age 75 05/12/203205/12, 02/04/2006 (Completed outside of [facility]) Tdap Completed 08/16/2016 Pneumococcal series [...] 0 AM CDT COLONOSCOPY 05/12/2022 8:51 AM SITE COORDINATOR LIPID PANEL W REFLEX MEASURED LDL Routine 02/16/2016 8:59 AM CDT Hyperlipidemia, unspecified hyperlipidemia type from Last 3 Months or Most Recently Relevant to Health Maintenance Results * LAB TRACKING EVENT (09/13/2023 11:00 AM CDT) Other (Other) Client Collect / Unknown 09/13/2023 11:00 AM CDT 09/13/2023 9:30 PM CDT Doctor Unknown LAB BILL ONLY [facility] [address] [place] [address], * PATH TISSUE EXAM (09/13/2023 11:00 AM CDT) Case Report Pathology Report ?Case: [id number] ? Authorizing Provider: ??Unknown, Doctor ?Collected: ? 09/13/2023 1100 ? Ordering Location: ? [facility] ?Received: ?09/14/2023 1033 ? Pathologist: ? Anson Hale MD ? Specimen: ?Right foot ? 09/16/2023 7:47 AM [facility] Final Diagnosis A) FOOT, RIGHT, BIOPSY: 1. Bone with acute and chronic osteomyelitis 09/16/2023 7:47 AM [facility] Comment The specific bone that was biopsied is not provided. 09/16/2023 7:47 AM T [facility] Clinical Information Right foot, assess for osteomyelitis. 09/16/2023 7:47 AM [facility] [facility] Gross Description A) Received in formalin, labeled with the patient's name and date of , is a 1.8 x 0.5 x 0.2 cm aggregate of suresh-pink soft tissue fragments admixed with pale-suresh bone. ??The specimen is submitted entirely, in toto in 1 cassette. [facility] 09/14/2023 ?? 09/16/2023 7:47 AM T [facility]AL LAB[facility]AT[facility] Microscopic Description The final diagnosis is based on microscopic examination of appropriate sections of all specimens. 09/16/2023 7:47 AM CDT [facility] LAB[facility] Additional Information Interpreted at [facility] Central Laboratory - [address], [place] [address] 09/16/2023 7:47 AM CDT [facility] Other (Right foot) 09/13/2023 11:00 AM CDT 09/14/2023 10:33 AM CDT Doctor Unknown PATHOLOGY/CYTOLOGY [facility] [address] [place] [address], * COLONOSCOPY (05/12/2022 8:51 AM SITE COORDINATOR) 05/12/2022 8:51 AM SITE COORDINATOR Narrative Transcriptions Lukas West MD - 05/12/2022 9:03 AM [facility] Patient Name: Onesimo Walton Procedure Date: 05/12/2022 Gender: Male Date of : 1950 Admit Type: Inpatient Procedure: Colonoscopy Proceduralist: Lukas West MD [facility] Indications/Pre-Op Diagnosis: Anemia. Bacteremia Medications: Monitored Anesthesia Care Procedure Description: The patient had risks, benefits and alternatives explained to andgave informed consent. The patient had a stable cardiopulmonary status and judged an adequate candidate for conscious sedation. The [id number] endoscope was passed through the anus and [...] per the primary team. Call [facility] back if any questions orconcerns. Lukas West MD 05/12/2022 9:03:39 AM This report has been signed electronically. Note Initiated On: 05/12/2022 8:51 AM Lukas West MD PROCEDURE ORD * (ABNORMAL) LIPID PANEL W REFLEX MEASURED LDL (02/16/2016 8:59 AM CDT) CHOLESTEROL,TOTAL 178 100 - 199 mg/dL 02/16/2016 11:02 AM [facility] TRIGLYCERIDES 232(H) <150 mg/dL 02/16/2016 11:02 AM [facility] HDL CHOLESTEROL 31(L) >40 mg/dL 02/16/2016 11:02 AM [facility] NON-HDL CHOLESTEROL 147(H) <145 mg/dl 02/16/2016 11:02 AM [facility] CHOL/HDL RATIO 5.74(H) <4.50 02/16/2016 11:02 AM [facility] LDL CHOLESTEROL 101 <=130 mg/dL 02/16/2016 11:02 AM CDT [facility] PATIENT STATUS FASTING 02/16/2016 11:02 AM CDT [facility] Blood BLOOD SPECIMEN / Unknown Venipuncture / Unknown 02/16/2016 8:59 AM CDT 02/16/2016 8:59 AM CDT Rudy Riddle MD CHEMISTRY [facility] [address] [place] [address] [facility] [address] [place] [address], [place] [phone] from Last 3 Months or Most Recently [...] Provider to review later Care Teams Health Education Aide Relationship Specialty Start Date End Date Rudy Riddle MD [address] [place] [address] PCP - General Family Practice 05/25/22 Casa Lucia MD [address] [place] [address] Ophthalmology Ophthalmology Surgery 12/22/11 Rudy Riddle MD [address] [place] [address] Family Practice 05/07/22
--- OUTSIDE RECORDS SUMMARY | 2023-10-11 12:33 | XMS_ITS | Encounter Summary ---
Author Organization [facility] Address [address] [place] [address] Care Team Providers Care Sales Team Manager Name Role Phone Elsewhere, Pcp Primary Care Provider Unavailabl e Encounter Details Date Type Department Care Team (Late st Contact Info) Description 09/09/2023 Documentation Division of Nephrology and Hypertension in [place], [place] [address] [place] [address] Haseeb Menon Jr., D.O. [address] [place] [address] Social History Tobacco Use Types Packs/Day Years [...] often do you attend christian or caodaism serv ices? Never 03/24/2021 Do [...] your living situation today? I have a [facility] place to live 10/26/2022 Education Answer Date Recorded What is the highest level of school you have completed or the highest degree you have received? 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/2021 8:13 PM EMBROIDERY SPECIALIST Gender Identity Male 08/31/2019 2:40 PM [...] Upcoming Encounters Date Type Department Care Team (Late st Contact Info) Description 10/11/2023 1:30 PM CDT Comprehensive Visit [facility] in [place], [place] [address] [place] [address] Dallas Andrade, JULIÁN, C.N.P., M.S.N. [address] [place] [address] documented as of this encounter Visit Diagnoses Not on filedocumented in this encounter Additional Health Concerns Assessment Noted Time PHQ-9 Depression Total Score: 3 01/04/20 18 10:38 AM CDT documented as of this encounter Care Teams Sales Team Manager Relationship Specialty Start Date End Date Elsewhere, Pcp PCP - General Family Medicine 01/29/20 documented as of this encounter
--- OUTSIDE RECORDS SUMMARY | 2023-10-11 12:33 | XMS_ITS ---
Author Organization [facility] Address [address] [place] [address] Care Team Providers Care Second Operator Name Role Phone Unavailable Unavailable Unavailable Surgery Details Not on file Complications Check Surgery Details section. Procedure Estimated Blood Loss Check Surgery Details section. Procedure Findings Check Surgery Details section. Procedure Specimens Taken Check Surgery Details section.
--- OUTSIDE RECORDS SUMMARY | 2023-10-11 12:33 | XMS_ITS | Encounter Summary ---
Author Organization [facility] Address [address] [place] [address] Care Team Providers Care Mop Maker Name Role Phone Elsewhere, Pcp Primary Care Provider Unavailabl e Encounter Details Date Type Department Care Team (Late st Contact Info) Description 09/09/2023 Orders Only Division of Nephrology and Hypertension in [place], [place] [address] [place] [address] Haseeb Menon Jr., D.O. [address] [place] [address] Social History Tobacco Use Types Packs/Day Years [...] How often do you attend presybeterian or latter day serv ices? 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 [address] [place] [address] documented as of this encounter Visit Diagnoses Not on filedocumented in this encounter Additional Health Concerns Assessment Noted Time PHQ-9 Depression Total Score: 3 01/04/20 18 10:38 AM CDT documented as of this encounter Care Teams Mop Maker Relationship Specialty Start Date End Date Elsewhere, Pcp PCP - General Family Medicine 01/29/20 documented as of this encounter
--- OUTSIDE RECORDS SUMMARY | 2023-10-11 12:33 | XMS_ITS | Encounter Summary ---
Author Organization [facility] Address [address] [place] [address] Care Team Providers Care Reviewer Sales Name Role Phone Elsewhere, Pcp Primary Care Provider Unavailabl e Encounter Details Date Type Department Care Team (Late st Contact Info) Description 08/16/2023 Documentation Division of Nephrology and Hypertension, [facility], in [place], [place] [address] [place] [address] Ishan Guardado, JULIÁN, C.N.P., M.S.N. [address] [place] [phone] Social History Tobacco Use Types Packs/Day Years [...] How often do you attend rastafari or sabianist serv ices? Never 03/24/2021 Do [...] PHQ-2 Score 0 10/20/2018 [facility] - Occupational Stress Questionnaire Answer Date Recorded [...] your living situation today? I have a [facility] place to live 10/26/2022 Education Answer Date Recorded What is the highest level of school you have completed or the highest degree you have received? 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/2021 8:13 PM TOWER HOIST OPERATOR Gender Identity Male 08/31/2019 2:40 PM [...] [facility] in [place], [place] [address] [place] [address] Dallas Andrade, JULIÁN, C.N.P., M.S.N. 200 [place] [address] documented as of this encounter Visit Diagnoses Not on filedocumented in this encounter Additional Health Concerns Assessment Noted Time PHQ-9 Depression Total Score: 3 01/04/20 18 10:38 AM CDT documented as of this encounter Care Teams Reviewer Sales Relationship Specialty Start Date End Date Elsewhere, Pcp PCP - General Family Medicine 01/29/20 documented as of this encounter
--- OUTSIDE RECORDS SUMMARY | 2023-10-11 12:33 | XMS_ITS | Encounter Summary ---
Author Organization [facility] Address [address] [place] [address] Care Team Providers Care Ice Seller Name Role Phone Elsewhere, Pcp Primary Care Provider Unavailabl e Reason for Visit * Reason Onset Date Comments Hypertension 09/09/2023 Encounter Details Date Type Department Care Team (Latest Contact Info) Description 09/09/2023 Clinical Communication Division of Nephrology and Hypertension in [place], [place] [address] [place] [address] Haseeb Menon Jr., D.O. [address] [place] [address] Hypertension Social History Tobacco Use Types Packs/Day [...] How often do you attend anabaptist or catholic serv ices? Never 03/24/2021 Do [...] Date Recorded PHQ-2 Score 0 10/20/2018 [facility]at [facility] - [...] Assigned at Male 03/24/2021 8:13 PM SUPERVISOR BOAT OUTFITTING Gender Identity Male 08/31/2019 2:40 PM CDT Sexual Orientation Straight 08/31/2019 2: 40 PM CDT documented as of this encounter Miscellaneous Notes * Telephone Encounter - Danica Fowler - 09/09/2023 3:49 PM CDT Caller is: patient Preferred Communication Method: [phone] (mobile) Reason for call: Blood Pressure: BP numbers- 198/91, 214/99, 189/101 Is there any concern? YES -- Patient is noticing HIGH blood pressure readings today. Should adjustments be made? documented in this encounter Plan of Treatment Upcoming Encounters Date Type Department Care Team (Late st Contact Info) Description 10/11/2023 1:30 PM CDT [facility] Visit [facility] in [place], [place] [address] [place] [address] Dallas Andrade, JULIÁN, C.N.P., M.S.N. [address] [place] [address] documented as of this encounter Visit Diagnoses Not on filedocumented in this encounter Additional Health Concerns Assessment Noted Time PHQ-9 Depression Total Score: 3 01/04/20 18 10:38 AM CDT documented as of this encounter Care Teams Ice Seller Relationship Specialty Start Date End Date Elsewhere, Pcp PCP - General Family Medicine 01/29/20 documented as of this encounter
--- OUTSIDE RECORDS SUMMARY | 2023-10-11 12:33 | XMS_ITS | Clinical Summary ---
Author Organization [facility] Address [address] [place] [address] Care Team Providers Care Control Inspector Name Role Phone Elsewhere, Pcp Primary Care Provider Unavailabl e Source Comments Patient records contain information from all sites at [facility]. For routine questions regarding patient records, call [phone] during business hours, M-F 8:00 AM - 5:00 PM Central Time. Record requests for emergency care only can be directed to [phone] at any time.[facility] Allergies Active Allergy Reactions Criticality Noted Date Comments Gabapentin Other (see comments) Medium 08/04/2020 Dizzy, memory issue Morphine Itching,Rash Medium 02/14/2012 itchy Pregabalin Anaphylaxis High 02/16/2017 swell Jtwmpft-Qxt-Eix Reductase Inhibitors Myalgia Low 02/13/2014 Medications Medication [...] ONE CAPSULE BY MOUTH EVERY DAY CORRECTION 2 Active allopurinoL (ZYLOPRIM) 100 mg tablet [...] Spouse: Siria Children: Maria M Deluca Lisa, Pat, 13 grand babies Work: no Problem [...] 04/21/2018 Restless Leg Syndrome 01/12/2018 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 08/08/2017 Hyperlipidemia 07/22/2017 Ulcer Leg Left 04/19/2017 Ulcer Toe Left 04/19/2017 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 04/19/2017 Peripheral Arterial Disease 02/16/2017 Hypertension NOS 02/16/2017 Hypertension And Chronic Kidney Disease Stage 4 09/23/2016 Overview: Hypertension (HTN) And CKD Stage 1-4 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 09/23/2016 Overview: Snf Use Of Insulin Active Depression Major Recurrent Moderate 06/22/2016 Overview: Depression Major Recurrent Moderate Diabetes Mellitus Type 2 Wit h Other Circulatory Complication 06/22/2016 Overview: DM2 Peripheral Neuropathy Uncontrolled Diagnosis Maintenance Updates May 2023 Encounters Date Type Department Care Team Description 09/13/2023 Documentation Division of Nephrology and Hypertension in [place], [place] [address] [place] [phone] Haseeb Menon Jr., D.OFei 09/13/2023 Orders Only Division of Nephrology and Hypertension in [place], [place] [address] [place] [phone] Haseeb Menon Jr., Kylah.O. 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 (HCC) (Primary Dx); Diabetes Mellitus Type 2 With Other Circulatory Complication (HCC); Anemia Of Chronic Renal Disease; Sleep Apnea 09/09/2023 Documentation Division of Nephrology and Hypertension in [place], [place] [address] [place] [address] Haseeb Menon Jr., D.OFei 09/09/2023 Orders Only Division of Nephrology and Hypertension in [place], [place] [address] [place] [phone] Haseeb Menon Jr., D.OFei 09/09/2023 Clinical Communication Division of Nephrology and Hypertension in [place], [place] [address] [place] [phone] Haseeb Menon Jr., D.OFei Hypertension 08/16/2023 Documentation Division of Nephrology and Hypertension, [facility], in [place], [place] [address] [place] [phone] Ishan Guardado, JULIÁN, C.N.P., M.S.N. 08/16/2023 Orders Only Division of Nephrology and Hypertension, [facility], in [place], [place] [address] [place] [address] Ishan Guardado APRN, C.N.P., M.S.N. 08/15/2023 Clinical Communication Division of Nephrology and Hypertension in [place], [place] [address] [place] [address] Haseeb Menon Jr. D.O. New Symptoms 08/09/2023 Documentation Division of Nephrology and Hypertension in [place], [place] [address] [place] [address] Haseeb Menon Jr., D.O. 08/09/2023 Orders Only Division of Nephrology and Hypertension in [place], [place] [address] [place] [address] Haseeb Menon Jr., D.O. from Last 3 [...] How often do you attend mormon or church serv ices? Never 03/24/2021 Do [...] Recorded PHQ-2 Score 0 10/20/2018 [facility] of Occupat ional Health - Occupational Stress [...] your living situation today? I have a [facility] place to live 10/26/2022 Education Answer Date Recorded What is the highest level of school you have completed or the highest degree you have received? 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/2021 8:13 PM CHAINER Gender Identity Male 08/31/2019 2:40 PM CDT [...] Comprehensive Visit [facility] in [place], [place] [address] [place] [phone] Dallas Andrade, JULIÁN, C.N.P., M.S.N. [address] [place] [address] Health Maintenance Due Date Last Done Comments [...] Lung Cancer Screening 05/07/2021 05/07/2020 COVID-19 Vaccine (5 - 3-2 4 season) 2023 10/27/2021, 04/02/2021, 08/09/2020, Additional [...] history exists Medical Devices Implanted Type Area Coin Purse Assembler Device Identifier Shelf Expiration Date Model / Serial / Lot Patch Vasc Bovine.08cm X 8cm - Flores [id number] Implanted:Qty: 1 on 04/04/2017 Mesh or Patch Other/Legacy - See Implant Description Synovis Description:Device Manufactu rer - Synovis. Body Location - Other. Vascular. Device Status Text - [id number]. Ocular Lens-10/29/2007 Implanted:10/28 by Nato Dougherty, JULIÁN, C.N.P., R.N. 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 Device Status Text - [id number]. Stent Vbx [id number] - Flores [id number] Implanted:Qty: 1 on 03/04/2017 Vascular Graft Other/Legacy - See Implant Description Rodman Description:Device Manufactu rer - [employer] Body Location - Other. n/a. Device Status Text - [id number]. Stent Vbx [id number] - Flores [id number] Implanted:Qty: 1 on 03/04/2017 Vascular Graft Other/Legacy - See Implant Description Rodman Description:Device Manufactu rer - [employer] Body Location - Other. n/a. Device Status Text - [id number]. Stent Zilver Ptx 6mm X 40mm - Flores [id number] Implanted:Qty: 1 on 04/04/2017 Vascular Stent Other/Legacy - See Implant Description [employer] Description:Device Manufactu [employer] - [employer]. Body Location - Other. Left. Device Status Text - [id number]. Stent Zilver Ptx 6mm X 60mm - Flores [id number] Implanted:Qty: 1 on 04/04/2017 Vascular Stent Other/Legacy - See Implant Description [employer] Description:Device Manufactu rer - [employer]. Body Location - Other. Left. Device Status Text - [id number]. Stent Zilver Ptx 6mm X 80mm - Flores [id number] Implanted:Qty: 1 on 08/31/2017 Vascular Stent Right: Other/Legacy - See Implant Description [employer] / [id number] / Description:Device Manufactu rer - [employer]. Body Location - Right. Device Status Text - [id number]. Stent Zilver Ptx 6mm X 40mm - Flores [id number] Implanted:Qty: 1 on 08/31/2017 Vascular Stent Right: Other/Legacy - See Implant Description [employer] / [id number] / Description:Device Manufactu rer - [employer]. Body Location - Right. Device Status Text - [id number]. Stnt Innova Otw [id number] - [id number] Implanted:Qty: 1 on 04/18/2018 by Kemar Velásquez M.B.B.S. at [facility] Vascular Stent [employer] 05/23/2020 [id number] / / [id number] Stnt Innova Otw [id number] - [id number] Implanted:Qty: 1 on 05/11/2019 by Kemar Velásquez M.B.B.S. at [facility] Vascular Stent Left: Leg [employer] 09/05/2020 [id number] / / [id number] Procedures Procedure Name Priority Date/Time Associated Diagnosis [...] Renal Disease Acidosis Metabolic Hyperchloremic 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 (HCC) CT ABDOMEN PELVIS WITHOUT IV CONTRAST RAD - Routine (most inpatients and all outpatients) 05/27/2022 4:19 PM CHAINER LIPID PANEL, S Routine 02/10/2021 8:27 AM CDT Peripheral Arterial Disease (HCC) Diabetes Mellitus Type 2 With Other Circulatory Complication Hyperglycemic (HCC) 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) CT CHEST WITHOUT IV CONTRAST RAD - Routine (most inpatients and all outpatients) 05/07/2020 9:29 PM CHAINER from Last 3 Months or Most Recently Relevant to Health Maintenance Results * (ABNORMAL) Renal Function Panel (02/17/2023 9:35 AM CDT) Pathologist [facility] Potassium, P 4.4 3.6 - 5.2 mmol/L [...] AM CDT 02/17/2023 11:01 AM CDT Narrative [facility] - 02/17/2023 4:02 PM CDT Specimen Information: Specimen ID: [id number] Specimen Type: Blood Specimen Collection Start Date: 02/17/2023 ??9:35 AM Specimen Received Date: 02/17/2023 11:01 AM Specimen ID: [id number] Specimen Type: Blood Specimen Collection Start Date: 02/17/2023 ??9:35 AM Specimen Received Date: 02/17/2023 ??3:35 PM Estiven He Jr.O. LAB BLOOD AD D-ON [facility] [address] [place] [address], [facility] in [place] [address] [place] [address] [facility] [address] [place] [address] * HCV Ab Scrn w/Reflex to HCV PCR, Serum (02/17/2023 9:35 AM CDT) HCV Ab Screen, S Negative Negative 10/05/20 23 3:35 PM CDT [facility] Comment: Biotin has been identified by the tucking machine operator as a potential interfering substance. Higher concentrations of biotin may be found in multivitamins, hair/nail supplements, and workout supplements. If the result does not match clinical observations, repeat testing after patient refrains from the use of supplements for at least 12 hours. Blood (Blood, Venous) 02/17/2023 9:35 AM CDT 02/17/2023 2:20 PM CDT Narrative [facility] - 02/17/2023 3:35 PM CDT Specimen Information: Specimen ID: [id number] Specimen Type: Blood Specimen Collection Start Date: 02/17/2023 ??9:35 AM Specimen Received Date: 02/17/2023 ??2:20 PM Specimen ID: [id number] Specimen Type: Blood Specimen Collection Start Date: 02/17/2023 ??9:35 AM Specimen Received Date: 02/17/2023 ??2:16 PM Haseeb Menon Jr., D.O. LAB MICROBIO LOGY - BLOOD ORDERABLES Performing Organization Address City/State/[facility] Co de Phone Number [facility] [address] [place] [address], [facility] in [place] [address] [place] [phone] * (ABNORMAL) Albumin, Random, Urine (02/17/2023 9:26 AM CDT) Microalbumin 895.0 mg/L 02/17/2023 1:53 PM CDT [facility] Creatinine 42 mg/dL 02/17/2023 12:50 PM CDT [facility] Albumin/Creatinin e Ratio 2131(H) <17 mg/g 02/17/2023 1:53 PM CDT [facility] Urine (Urine, Voided) 02/17/2023 9:26 AM CDT 02/17/2023 11:00 AM CDT Haseeb Menon Jr., D.O. LAB URINE OR DERABLES Performing Organization Address City/State/[facility] de Phone Number [facility] [address] [place] [address], [facility] in [place] [address], [place] [address] * (ABNORMAL) Hemoglobin A1c (11/25/2022 2:09 PM CDT) Hemoglobin A1c, B 6.2(H) 4.2 - 5.6 % 11/25/2022 4:40 PM CDT [facility] Comment: Hemoglobin A1c values of 5.7-6.4 percent indicate an increased risk for developing diabetes mellitus. In diabetic patients, HbA1c goals should be discussed with healthcare provider. Blood (Blood, Venous) 11/25/2022 2:09 PM CDT 11/25/2022 3:35 PM CDT Haseeb Menon Jr., D.O. LAB BLOOD AD D-ON Performing Organization Address [facility] Co de Phone Number [facility] [address] [place] [address], [facility] in [place] [address] [place] [address] * (ABNORMAL) Lipid Panel (02/10/2021 8:27 AM [...] AM CDT Kemar Reyes LAB BLOOD ADD-ON [facility] [address] [place] [address], [facility] [address] [place] [address] from Last 3 Months or Most Recently Relevant to Health Maintenance Advance Directives For more information, please contact: [phone] * Full Code (Latest Code Status on [...] Answer Comments Full Code: Discussed Care Teams Control Inspector Relationship Specialty Start Date End Date Elsewhere, Pcp PCP - General Family Medicine 01/29/20
--- OUTSIDE RECORDS SUMMARY | 2023-10-11 12:33 | XMS_ITS | Referral Summary ---
Author Organization [facility] Address [address] [place] [address] Care Team Providers Care Animal Herder Name Role Phone Elsewhere, Pcp Primary Care Provider Unavailabl e Source Comments Patient records contain information from all sites at [facility]. For routine questions regarding patient records, call [phone] during business hours, M-F 8:00 AM - 5:00 PM Central Time. Record requests for emergency care only can be directed to [phone] at any time.[facility] Encounters Date Type Department Care Team Description 09/13/2023 Documentation Division of Nephrology and Hypertension in [place], [place] [address] [place] [address] Haseeb Menon Jr., D.O. 09/13/2023 Orders Only Division of Nephrology and Hypertension in [place], [place] [address] [place] [address] Haseeb Menon Jr., D.O. Atherosclerosis Of [place] Ar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 (HCC) (Primary Dx); Diabetes Mellitus Type 2 With Other Circulatory Complication (HCC); Anemia Of Chronic Renal Disease; Sleep Apnea 09/09/2023 Documentation Division of Nephrology and Hypertension in [place], [place] [address] [place] [address] Haseeb Menon Jr., D.O. 09/09/2023 Orders Only Division of Nephrology and Hypertension in [place], [place] [address] [place] [address] Haseeb Menon Jr. D.O. 09/09/2023 Clinical Communication Division of Nephrology and Hypertension in [place], [place] [address] [place] [address] Haseeb Menon Jr., EstivenO. Hypertension 08/16/2023 Documentation Division of Nephrology and Hypertension, [facility], in [place], [place] [address] [place] [address] Ishan Guardado APRN, C.N.Kinza., M.S.N. 08/16/2023 Orders Only Division of Nephrology and Hypertension, [facility], in [place], [place] [address] [place] [address] Ishan Guardado APRN, C.N.Kinza., M.S.N. 08/15/2023 Clinical Communication Division of Nephrology and Hypertension in [place], [place] [address] [place] [address] Haseeb Menon Jr., Brittnee. New Symptoms 08/09/2023 Documentation Division of Nephrology and Hypertension in [place], [place] [address] [place] [address] Haseeb Menon Jr., D.O. 08/09/2023 Orders Only Division of Nephrology and Hypertension in [place], [place] [address] [place] [address] Haseeb Menon Jr., D.O. 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 allopurinoL (ZYLOPRIM) 100 mg tablet [...] 04/21/2018 Restless Leg Syndrome 01/12/2018 Atherosclerosis Of [place] Ar 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 08/08/2017 Hyperlipidemia 07/22/2017 Ulcer Leg Left 04/19/2017 Ulcer Toe Left 04/19/2017 Atherosclerosis Of [place] Ar teries Of Left Leg With Ulceration Of Unspecified Site 04/19/2017 Peripheral Arterial Disease 02/16/2017 Hypertension NOS 02/16/2017 Hypertension And Chronic Kidney Disease Stage 4 09/23/2016 Overview: Hypertension (HTN) And CKD Stage 1-4 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 [address] [place] [address] Medical Devices Implanted Type Area Raise Miner Device Identifier Shelf Expiration Date Model / Serial / Lot Patch Vasc Bovine.08cm X 8cm - Flores [id number] Implanted:Qty: 1 on 04/04/2017 Mesh or Patch Other/Legacy - See Implant Description Synovis Description:Device Manufactu rer - Synovi. Body Location - Other. Vascular. Device Status Text - [id number]. Ocular Lens-10/29/2007 Implanted:10/28 by Nato Dougherty APRN, C.N.P., R.N. 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 Device Status Text - [id number]. Stent Vbx [id number] - Flores [id number] Implanted:Qty: 1 on 03/04/2017 Vascular Graft Other/Legacy - See Implant Description [place] Description:Device Manufactu rer - [employer] Body Location - Other. n/a. Device Status Text - [id number]. Stent Vbx [id number] - Flores [id number] Implanted:Qty: 1 on 03/04/2017 Vascular Graft Other/Legacy - See Implant Description [place] Description:Device Manufactu rer - [employer] [place] [employer] Body Location - Other. n/a. Device Status Text - [id number]. Stent Zilver Ptx 6mm X 40mm - Flores [id number] Implanted:Qty: 1 on 04/04/2017 Vascular Stent Other/Legacy - See Implant Description [employer]. Description:Device Manufactu rer - [employer]. Body Location - Other. Left. Device Status Text - [id number]. Stent Zilver Ptx 6mm X 60mm - Flores [id number] Implanted:Qty: 1 on 04/04/2017 Vascular Stent Other/Legacy - See Implant Description [employer] Description:Device Manufactu rer - [employer]. Body Location - Other. Left. Device Status Text - [id number]. Stent Zilver Ptx 6mm X 80mm - Flores [id number] Implanted:Qty: 1 on 08/31/2017 Vascular Stent Right: Other/Legacy - See Implant Description [employer]. / [id number] / Description:Device Manufactu rer - [employer]. Body Location - Right. Device Status Text - [id number]. Stent Zilver Ptx 6mm X 40mm - Flores [id number] Implanted:Qty: 1 on 08/31/2017 Vascular Stent Right: Other/Legacy - See Implant Description [employer]. / [id number] / Description:Device Manufactu rer - [employer]. Body Location - Right. Device Status Text - [id number]. [facility] Innovalivia Otw [id number] - [id number] Implanted:Qty: 1 on 04/18/2018 by Kemar Velásquez M.B.BFeiSFei at [facility] Vascular Stent [employer] 05/23/2020 [id number] / / [id number] [facility] Madi Otw [id number] - [id number] Implanted:Qty: 1 on 05/11/2019 by Kemar Velásquez M.B.B.SFei at [facility] Vascular Stent Left: Leg Eduquia 09/05/2020 [id number] / / [id number] Procedures Procedure Name Priority Date/Time Associated Diagnosis [...] Renal Disease Acidosis Metabolic Hyperchloremic Atherosclerosis Of [place] Ar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 (HCC) CT ABDOMEN PELVIS WITHOUT IV CONTRAST RAD - Routine (most inpatients and all outpatients) 05/27/2022 4:19 PM SUPPLY ROOM CLERK LIPID PANEL, S Routine 02/10/2021 8:27 AM CDT Peripheral Arterial Disease (HCC) Diabetes Mellitus Type 2 With Other Circulatory Complication Hyperglycemic (HCC) 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) CT CHEST WITHOUT IV CONTRAST RAD - Routine (most inpatients and all outpatients) 05/07/2020 9:29 PM SUPPLY ROOM CLERK from Last 3 Months or Most Recently [...] AM CDT 02/17/2023 11:01 AM CDT Narrative [facility] - 02/17/2023 4:02 PM CDT Specimen Information: Specimen ID: [id number] Specimen Type: Blood Specimen Collection Start Date: 02/17/2023 ??9:35 AM Specimen Received Date: 02/17/2023 11:01 AM Specimen ID: [id number] Specimen Type: Blood Specimen Collection Start Date: 02/17/2023 ??9:35 AM Specimen Received Date: 02/17/2023 ??3:35 PM Haseeb Menon Jr., D.O. LAB BLOOD AD D-ON [facility] [address] [place] [address], [facility] OWAT [facility] [place] [address] [place] [address] [facility] [address] [place] [address] * HCV Ab Scrn w/Reflex to HCV PCR, Serum (02/17/2023 9:35 AM CDT) HCV Ab Screen, S Negative Negative 02/18/20 3:35 PM CDT MKTO Comment: Biotin has been identified by the air intelligence officer as a potential interfering substance. Higher concentrations of biotin may be found in multivitamins, hair/nail supplements, and workout supplements. If the result does not match clinical observations, repeat testing after patient refrains from the use of supplements for at least 12 hours. Blood (Blood, Venous) 02/17/2023 9:35 AM CDT 02/17/2023 2:20 PM CDT Narrative [facility] - 02/17/2023 3:35 PM CDT Specimen Information: Specimen ID: [id number] Specimen Type: Blood Specimen Collection Start Date: 02/17/2023 ??9:35 AM Specimen Received Date: 02/17/2023 ??2:20 PM Specimen ID: [id number] Specimen Type: Blood Specimen Collection Start Date: 02/17/2023 ??9:35 AM Specimen Received Date: 02/17/2023 ??2:16 PM Haseeb Menon Jr., D.O. LAB MICROBIO LOGY - BLOOD ORDERABLES Performing Organization Address [facility] Co de Phone Number [facility] [address] [place] [address], [facility] MKTO [facility] [place] [address] [place] [address] * (ABNORMAL) Albumin, Random, Urine (02/17/2023 9:26 AM CDT) Microalbumin 895.0 mg/L 02/17/2023 1:53 PM CDT OWAT Creatinine 42 mg/dL 02/17/2023 12:50 PM CDT OWAT Albumin/Creatinin e Ratio 2131(H) <17 mg/g 02/17/2023 1:53 PM CDT OWAT Urine (Urine, Voided) 02/17/2023 9:26 AM CDT 02/17/2023 11:00 AM CDT Haseeb Menon Jr., D.O. LAB URINE OR DERABLES Performing Organization Address [facility] Co de Phone Number [facility] [address] [address], [facility] [place] [address] [place] [address] * (ABNORMAL) Hemoglobin A1c (11/25/2022 2:09 PM [...] LAB BLOOD AD D-ON Performing Organization Address City/[facility]/ZIP Co de Phone Number [facility] [address] [place] [address], [place] [address] [facility] [place] [address] [place] [address] * (ABNORMAL) Lipid Panel (02/10/2021 8:27 AM [...] AM CDT Kemar Reyes LAB BLOOD ADD-ON [facility] [address] [place] [address], [facility] [address] [place] [address] from Last 3 Months or Most Recently Relevant to Health Maintenance Advance Directives For more information, please contact: [phone] * Full Code (Latest Code Status on [...] Answer Comments Full Code: Discussed Care Teams Animal Herder Relationship Specialty Start Date End Date Elsewhere, Pcp PCP - General Family Medicine 01/29/20
--- OUTSIDE RECORDS SUMMARY | 2023-10-11 12:33 | XMS_ITS | Encounter Summary ---
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 [address] [place] [address] Atherosclerosis Of [place] Arteries Of Extremities With Intermittent Claudication Right [...] How often do you attend episcopalian or christian serv ices? 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
--- OUTSIDE RECORDS SUMMARY | 2023-10-11 12:33 | XMS_ITS | Encounter Summary ---
Author Organization [facility] Address [address] [place] [address] Care Team Providers Care Can Machine Operator Name Role Phone Elsewhere, Pcp Primary Care Provider Unavailabl e Encounter Details Date Type Department Care Team (Late st Contact Info) Description 09/13/2023 Documentation Division of Nephrology and Hypertension in [place], [place] [address] [place] [address] Haseeb Menon Jr., D.O. [address] [place] [address] Social History Tobacco Use Types Packs/Day Years [...] How often do you attend congregation or tenriism serv ices? Never 03/24/2021 Do [...] your living situation today? I have a [facility] place to live 10/26/2022 Education Answer Date Recorded What is the highest level of school you have completed or the highest degree you have received? 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 - 09/13/2023 9:30 AM CDT Care coordination-dialysis visit: Please see the sure scripts tab, in Care everywhere or the documents tab regarding his full dialysis notes from the [facility] Dialysis home program. Fair [...] Comprehensive Visit [facility] in [place], [place] [address] [place] [address] Dallas Andrade, JULIÁN, C.N.P., M.S.N. [address] [place] [address] documented as of this encounter Visit Diagnoses Not on filedocumented in this encounter Additional Health Concerns Assessment Noted Time PHQ-9 Depression Total Score: 3 01/04/20 18 10:38 AM CDT documented as of this encounter Care Teams Can Machine Operator Relationship Specialty Start Date End Date Elsewhere, Pcp PCP - General Family Medicine 01/29/20 documented as of this encounter
--- OUTSIDE RECORDS SUMMARY | 2023-10-11 12:34 | XMS_ITS | Encounter Summary ---
Author Organization [facility] Address [address] [place] [address] Care Team Providers Care Rotary Adjuster Name Role Phone Elsewhere, Pcp Primary Care Provider Unavailabl e Encounter Details Date Type Department Care Team (Late st Contact Info) Description 08/16/2023 Orders Only Division of Nephrology and Hypertension, [facility], in [place], [place] [address] [place] [address] Ishan Guardado, JULIÁN, C.N.P., M.S.N. [address] [place] [address] Social History Tobacco Use Types Packs/Day Years [...] How often do you attend lutheran or presybeterian serv ices? Never 03/24/2021 Do [...] Recorded PHQ-2 Score 0 10/20/2018 [facility] - Occupational Stress Questionnaire Answer Date [...] Assigned at Male 03/24/2021 8:13 PM SENIOR SYSTEMS DEVELOPER Gender Identity Male 08/31/2019 2:40 PM CDT Sexual Orientation Straight 08/31/2019 2: 40 PM CDT documented as of this encounter Plan of Treatment Upcoming Encounters Date Type Department Care Team (Late st Contact Info) Description 10/11/2023 1:30 PM CDT Comprehensive Visit [facility] in [place], [place] [address] [place] [address] Dallas Andrade, JULIÁN, C.N.P., M.S.N. [address] [place] [address] documented as of this encounter Visit Diagnoses Not on filedocumented in this encounter Additional Health Concerns Assessment Noted Time PHQ-9 Depression Total Score: 3 01/04/20 18 10:38 AM CDT documented as of this encounter Care Teams Rotary Adjuster Relationship Specialty Start Date End Date Elsewhere, Pcp PCP - General Family Medicine 01/29/20 documented as of this encounter
--- OUTSIDE RECORDS SUMMARY | 2023-10-11 12:34 | XMS_ITS | Encounter Summary ---
Author Organization [facility] Address [address] [place] [address] Care Team Providers Care Die Caster Name Role Phone Elsewhere, Pcp Primary Care Provider Unavailabl e Encounter Details Date Type Department Care Team (Late st Contact Info) Description 08/09/2023 Documentation Division of Nephrology and Hypertension in [place], [place] [address] [place] [address] Haseeb Menon Jr., D.O. [address] [place] [address] Social History Tobacco Use Types Packs/Day Years [...] How often do you attend restorationism or confucianist serv ices? Never 03/24/2021 Do [...] Answer Date Recorded PHQ-2 Score 0 10/20/2018 [facility] of Occupat ional Health - Occupational [...] your living situation today? I have a [facility] place to live 10/26/2022 Education Answer Date Recorded What is the highest level of school you have completed or the highest degree you have received? 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/2021 8:13 PM ROUTE DELIVERY SUPERVISOR Gender Identity Male 08/31/2019 2:40 PM CDT Sexual Orientation Straight 08/31/2019 2: 40 PM CDT documented as of this encounter Progress Notes * Haseeb Menon Jr., D.O. - 08/09/2023 3:25 PM CDT Care coordination-home dialysis clinic note Please see the [facility] sure scripts and Care everywhere note from [...] Comprehensive Visit [facility] in [place], [place] [address] [place] [address] Dallas Andrade, JULIÁN, C.N.P., M.S.N. [address] [place] [address] documented as of this encounter Visit Diagnoses Not on filedocumented in this encounter Additional Health Concerns Assessment Noted Time PHQ-9 Depression Total Score: 3 01/04/20 18 10:38 AM CDT documented as of this encounter Care Teams Die Caster Relationship Specialty Start Date End Date Elsewhere, Pcp PCP - General Family Medicine 01/29/20 documented as of this encounter
--- OUTSIDE RECORDS SUMMARY | 2023-10-11 12:34 | XMS_ITS | Encounter Summary ---
Author Organization [facility] Address [address] [place] [address] Care Team Providers Care Clothing Worker Name Role Phone Elsewhere, Pcp Primary Care Provider Unavailabl e Encounter Details Date Type Department Care Team (Late st Contact Info) Description 08/19/2016 Historical Ophthalmology [facility] Chalo Holland Jr., M.D. [address] [place] [address] Social History Tobacco Use Types Packs/Day Years Used Date Smoking Tobacco: Every Day Sex and Gender Information Value Date Recorded Sex Assigned at Male 03/24/2021 8:13 PM ROUTE JUMPER Gender Identity Male 08/31/2019 2:40 PM CDT Sexual Orientation Straight 08/31/2019 2: 40 PM CDT documented as of this encounter Progress Notes * Chalo Holladn M.D. - 08/19/2016 9:31 AM CDT Eye General CHIEF COMPLAINT Complete Exam- NEW pt HISTORY OF PRESENT ILLNESS Decreased near and distance VA both eyes. Feels he needs new glasses. BP TODAY was 100/67. Pt states all week he has been very dizzy, unstable to walk. Saw Irma Sharmabipin on but states that she did not address the dizziness. Pt states he is not dizzy today but is not feeling well. IMPRESSION / REPORT / PLAN #1 Diabetes No retinopathy or macular edema #2 IOL OU Stable New glasses RTO 1 year DIAGNOSIS #1 Diabetes #2 IOL OU CDM Reports - EYEGEN Id: [id number] Status: Fnl documented in this encounter Plan of Treatment Upcoming Encounters Date Type Department Care Team (Late st Contact Info) Description 10/11/2023 1:30 PM CDT Comprehensive Visit [facility] in [place], [place] [address] [place] [address] Dallas Andrade, JULIÁN, C.N.P., M.S.N. [address] [place] [address] documented as of this encounter Visit Diagnoses Not on filedocumented in this encounter Additional Health Concerns Infection Onset Date Last Indicated Resolved Time COVID19 Pending 05/08/2020 05/08/2020 05/08/2020 2 :44 PM ROUTE JUMPER Assessment Noted Time PHQ-9 Depression Total Score: 7 08/17/19 17 9:01 AM CDT documented as of this encounter Care Teams Clothing Worker Relationship Specialty Start Date End Date Elsewhere, Pcp PCP - General Family Medicine 01/29/20 documented as of this encounter
--- OUTSIDE RECORDS SUMMARY | 2023-10-11 12:34 | XMS_ITS | Encounter Summary ---
Author Organization [facility] Address [address] [place] [address] Care Team Providers Care Vice President Digital Strategist Name Role Phone Elsewhere, Pcp Primary Care Provider Unavailabl e Encounter Details Date Type Department Care Team (Late st Contact Info) Description 08/09/2023 Orders Only Division of Nephrology and Hypertension in [place], [place] [address] [place] [address] Haseeb Menon Jr., D.O. [address] [place] [address] Social History Tobacco Use Types Packs/Day Years [...] How often do you attend advent or moravian serv ices? 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 [address] [place] [address] documented as of this encounter Visit Diagnoses Not on filedocumented in this encounter Additional Health Concerns Assessment Noted Time PHQ-9 Depression Total Score: 3 01/04/20 18 10:38 AM CDT documented as of this encounter Care Teams Vice President Digital Strategist Relationship Specialty Start Date End Date Elsewhere, Pcp PCP - General Family Medicine 01/29/20 documented as of this encounter
--- OUTSIDE RECORDS SUMMARY | 2023-10-11 12:34 | XMS_ITS | Encounter Summary ---
Author Organization [facility] Address [address] [place] [address] Care Team Providers Care Hydrometallurgical Engineer Name Role Phone Elsewhere, Pcp Primary Care Provider Unavailabl e Reason for Visit * Reason Onset Date Comments New Symptoms 08/15/2023 Encounter Details Date Type Department Care Team (Latest Contact Info) Description 08/15/2023 Clinical Communication Division of Nephrology and Hypertension in [place], [place] [address] [place] [address] Haseeb Menon Jr., D.O. [address] [place] [address] New Symptoms Social History Tobacco Use Types [...] often do you attend latter day or zoroastrianism serv ices? Never 03/24/2021 Do [...] Score 0 10/20/2018 [facility] - Occupational Stress Questionnaire [...] Sex Assigned at Male 03/24/2021 8:13 PM ENTEROSTOMAL THERAPY NURSE Gender Identity Male 08/31/2019 2:40 PM [...] with Dr. Menon), during which she dropped Paloo off at the wound clinic for his [...] I spoke with Uriel, Pharmacist, in our [facility]. Per his medication database, a [...] yes. The following references were used: other [facility] Pharmacist . * Telephone Encounter - Chloe Lazo - 08/15/2023 10:43 AM CDT Caller is: : Authorization YES Preferred Communication Method: [phone] Reason for call: Pt's , Siria, called [...] for Sleep Medicine in [place], [place] [address] [place] [phone] [place] Andrade, JULIÁN, C.N.P., M.S.N. [address] [place] [address] documented as of this encounter Visit Diagnoses Not on filedocumented in this encounter Additional Health Concerns Assessment Noted Time PHQ-9 Depression Total Score: 3 01/04/20 18 10:38 AM CDT documented as of this encounter Care Teams Hydrometallurgical Engineer Relationship Specialty Start Date End Date Elsewhere, Pcp PCP - General Family Medicine 01/29/20 documented as of this encounter
== END 2023-10-11 12:30 | disposition home or self-care (01) ==
LOC: WOUND 12:29
PROVIDERS: PCP Family Medicine; Visit Provider Family Medicine
DX: E11.621 Type 2 diabetes mellitus with foot ulcer (principal); M86.8X7 Other osteomyelitis, ankle and foot; L97.514 Non-pressure chronic ulcer of other part of right foot with necrosis of bone; E11.22 Type 2 diabetes mellitus with diabetic chronic kidney disease; N18.5 Chronic kidney disease, stage 5; Z96.41 Presence of insulin pump (external) (internal); Z99.2 Dependence on renal dialysis
CPT/HCPCS: 11042

== ENCOUNTER 2023-10-18 09:29 | Outpatient (CLI) | payer MEDICARE, BC, SELFPAY ==
--- OUTSIDE RECORDS SUMMARY | 2023-10-18 09:37 | XMS_ITS | Clinical Summary ---
Author Organization [facility] Address [place], [place] [address] Care Team Providers Care Welding Process Specialist Name Role Phone Casa Lucia MD Unavailable Unavailable Rudy Riddle MD Unavailable [phone] Rudy Riddle MD Primary Care Provider + Allergies Active Allergy Reactions Criticality Noted Date Comments Gabapentin Other - Describe In Comment Field Medium 08/04/2020 Dizzy, memory issue Dizzy, memory issue Morphine Itching 02/04/2010 After 3 days of use Pregabalin Anaphylaxis,Itching High 02/16/2017 swetesfaye jane Accxqxh-Kgu-Xwr Reductase Inhibitors Myalgia 02/13/2014 Medications Medication Sig [...] Department Care Team Description 09/13/2023 Lab Requisition [facility] [phone] Unknown, Doctor from Last 3 Months Immunizations [...] Blood Pressure 162/87 07/21/2022 9:21 PM MANAGER SHIFT Pulse 100 07/21/2022 9:21 PM MANAGER SHIFT Temperature 37.1 ??C (98.8 ??F) 07/21/2022 8:51 PM CS T Respiratory Rate 18 07/21/2022 8:51 PM MANAGER SHIFT Oxygen Saturation 96% 07/21/2022 9:21 PM MANAGER SHIFT Inhaled Oxygen Concentration - - Weight 83.9 kg (185 lb) 07/21/2022 5:35 PM MANAGER SHIFT Height 175.3 cm (5' 9) 07/21/2022 5:35 PM MANAGER SHIFT Body Mass Index 27.32 07/21/2022 5:35 PM MANAGER SHIFT Plan of Treatment Health Maintenance Due Date [...] 77 05/12/203205/12, 02/04/2006 (Completed outside of [facility]) Tdap Completed 08/16/2016 Pneumococcal series for age [...] 0 AM CDT COLONOSCOPY 05/12/2022 8:51 AM MANAGER SHIFT LIPID PANEL W REFLEX MEASURED LDL Routine 02/16/2016 8:59 AM CDT Hyperlipidemia, unspecified hyperlipidemia type from Last 3 Months or Most Recently Relevant to Health Maintenance Results * LAB TRACKING EVENT (09/13/2023 11:00 AM CDT) Other (Other) Client Collect / Unknown 09/13/2023 11:00 AM CDT 09/13/2023 9:30 PM CDT Doctor Unknown LAB BILL ONLY [facility] [address] [place] [address], * PATH TISSUE EXAM (09/13/2023 11:00 AM CDT) Case Report Pathology Report ?Case: [id number] ? Authorizing Provider: ??Unknown, Doctor ?Collected: ? 09/13/2023 1100 ? Ordering Location: ? [facility] ?Received: ?09/14/2023 1033 ? Pathologist: ? Anson Hale MD ? Specimen: ?Right foot ? 09/16/2023 7:47 AM T [facility] ENTRAL LABORATORY Final Diagnosis A) FOOT, RIGHT, BIOPSY: 1. Bone with acute and chronic osteomyelitis 09/16/2023 7:47 AM [facility] Comment The specific bone that was biopsied is not provided. 09/16/2023 7:47 AM T [facility] ENTRAL LABORATORY Clinical Information Right foot, assess for osteomyelitis. 09/16/2023 7:47 AM [facility] [employer] [facility] Gross Description A) Received in formalin, labeled with the patient's name and date of , is a 1.8 x 0.5 x 0.2 cm aggregate of suresh-pink soft tissue fragments admixed with pale-suresh bone. ??The specimen is submitted entirely, in toto in 1 cassette. [facility] 09/14/2023 ?? 09/16/2023 7:47 AM T [facility] ENTRAL LABORATORY Microscopic Description The final diagnosis is based on microscopic examination of appropriate sections of all specimens. 09/16/2023 7:47 AM CDT [facility]AL LABORAT[facility] Additional Information Interpreted at [facility], Central Laboratory - [address], [place] [address] 09/16/2023 7:47 AM CDT [facility] Other (Right foot) 09/13/2023 11:00 AM CDT 09/14/2023 10:33 AM CDT Doctor Unknown PATHOLOGY/CYTOLOGY [facility] [address] [place] [address], * COLONOSCOPY (05/12/2022 8:51 AM MANAGER SHIFT) 05/12/2022 8:51 AM MANAGER SHIFT Narrative Transcriptions Lukas West MD - 05/12/2022 9:03 AM [facility] Patient Name: Onesimo Walton Procedure Date: 05/12/2022 Gender: Male Date of : 1950 Admit Type: Inpatient Procedure: Colonoscopy Proceduralist: Lukas West MD [facility] Indications/Pre-Op Diagnosis: Anemia. Bacteremia Medications: Monitored Anesthesia Care Procedure Description: The patient had risks, benefits and alternatives explained to andgave informed consent. The patient had a stable cardiopulmonary status and judged an adequate candidate for conscious sedation. The [id number] endoscope was passed through the anus and [...] Furthermanagement is per the primary team. Call [facility] back if any questions orconcerns. Lukas West MD 05/12/2022 9:03:39 AM This report has been signed electronically. Note Initiated On: 05/12/2022 8:51 AM Lukas West MD PROCEDURE ORD * (ABNORMAL) LIPID PANEL W REFLEX MEASURED LDL (02/16/2016 8:59 AM CDT) CHOLESTEROL,TOTAL 178 100 - 199 mg/dL 02/16/2016 11:02 AM [facility] TRIGLYCERIDES 232(H) <150 mg/dL 02/16/2016 11:02 AM [facility] HDL CHOLESTEROL 31(L) >40 mg/dL 02/16/2016 11:02 AM [facility] NON-HDL CHOLESTEROL 147(H) <145 mg/dl 02/16/2016 11:02 AM [facility] CHOL/HDL RATIO 5.74(H) <4.50 02/16/2016 11:02 AM [facility] LDL CHOLESTEROL 101 <=130 mg/dL 02/16/2016 11:02 AM CDT [facility] PATIENT STATUS FASTING 02/16/2016 11:02 AM CDT [facility] Blood BLOOD SPECIMEN / Unknown Venipuncture / Unknown 02/16/2016 8:59 AM CDT 02/16/2016 8:59 AM CDT Rudy Riddle MD CHEMISTRY [facility] [address] [place] [address] [facility] [address] [place] [address], [place] [phone] from Last 3 Months or Most Recently [...] Preferences, Provider to review later Care Teams Welding Process Specialist Relationship Specialty Start Date End Date Rudy Riddle MD [address] [place] [address] PCP - General Family Practice 05/25/22 Casa Lucia MD [address] [place] [address] Ophthalmology Ophthalmology Surgery 12/22/11 Rudy Riddle MD [address] [facility] [place] [address] Family Practice 05/07/22
--- OUTSIDE RECORDS SUMMARY | 2023-10-18 09:37 | XMS_ITS | Continuity of Care Document ---
Author Organization [facility] Address [address] [place] [address] Phone Care Team Providers Care Procurement Services Manager Name Role Phone Dot Warner Unavailable Unavailable Medications Medication Instructions Dosage Effective Dates (start - stop) Status Comments AMPICILLIN-SULBACTAM (unknown strength) Not Available - Active MINOCYCLINE HCL (unknown strength) Not Available - Active Procedures Procedure Date Office/Outpatient Visit,Est, Mod 2022 OFFICE/OUTPATIENT VISIT EST Phone Office/Outpatient Visit,Est, Mod 2022 Followup Hospital Care, [facility] 2021 Advance Directives Directive Yes / No Effective Date File Name No Information Encounters Encounter Description Practice Location Reason(s) For Visit Diagnoses Date Provider Providers Copied on Encounter [facility], [address], [place], [place], [id number] , [place] tel: [phone] [facility] - [facility] No Information 3 Kindra Chris. [facility], [address] [place] [address] [address], [place], [address], [place]. tel: [phone] Office/Outpa tient Visit,Est, Mod [facility], [address], [place], [place], [id number] , [place] tel: [phone] [facility] - [facility] [place] Spinal stenosis, lumbar region with neurogenic claudication 3 Camille Bob. [facility], [address] [place] [address], [address], [place], [address], [place]. tel: [phone] Referring Provider: Lisbeth Thomas, [facility] [address], [address], [place], [address]. [phone] OFFICE/OUTPA TIENT VISIT EST Phone [facility], [address], [place], [place], [id number] , [place] [phone] [facility] [place] No Information 3 Obrien Lisbeth. [facility], [address], [address], [place], [address], [place]. [phone] Referring Provider: Lisbeth Thomas, [facility] [address], [address], [place], [address]. [phone] Office/Outpa tient Visit,Est, Mod [facility], [address], [place], [place], [id number] , [place] [phone] [facility] Low back pain, unspecifiedOther specified soft tissue disorders 3 Obrien Lisbeth. [facility], [address], [address], [place], [address], [place]. [phone] Referring Provider: Lisbeth Thomas, [facility] [address], [address], [place], [address]. [phone] Followup Hospital Care, Moderate [facility], [address], [place], [place], [id number] , [place] [phone] [facility] [place] No Information 2 Dhaval Velez. [facility], [address], [address], [place], [address], [place]. [phone] Referring Provider: Rudy Riddle, [facility] And [address], [address]. tel:[phone] Family History Family Member Type Diagnosis Age At Onset No Information Payers Payer name Insurance type Covered libertarian ID Authorjaimealivia durant(s) [id number] Medicare [facility] [id number] Social History Type Description Quantity Date [...]
--- OUTSIDE RECORDS SUMMARY | 2023-10-18 09:38 | XMS_ITS | Encounter Summary ---
Author Organization [facility] Address [address] [place] [address] Care Team Providers Care Chronic Condition Nurse Name Role Phone Elsewhere, Pcp Primary Care Provider Unavailabl e Reason for Visit * Reason Onset Date Comments Hypertension 09/09/2023 Encounter Details Date Type Department Care Team (Latest Contact Info) Description 09/09/2023 Clinical Communication Division of Nephrology and Hypertension in [place], [place] [address] [place] [address] Haseeb Menon Jr., D.O. [address] [place] [address] Hypertension Social History Tobacco Use Types Packs/Day [...] How often do you attend mu-ism or pentecostal serv ices? 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/2021 8:13 PM ROLL TESTER Gender Identity Male 08/31/2019 2:40 PM CDT Sexual Orientation Straight 08/31/2019 2: 40 PM CDT documented as of this encounter Miscellaneous Notes * Telephone Encounter - Danica Fowler - 09/09/2023 3:49 PM CDT Caller is: patient Preferred Communication Method: [phone] (mobile) Reason for call: Blood Pressure: BP [...] documented as of this encounter Care Teams Chronic Condition Nurse Relationship Specialty Start Date End Date Elsewhere, Pcp PCP - General Family Medicine 01/29/20 documented as of this encounter
--- OUTSIDE RECORDS SUMMARY | 2023-10-18 09:38 | XMS_ITS | Encounter Summary ---
Author Organization [facility] Address [address] [place] [address] Care Team Providers Care Hedis Manager Name Role Phone Elsewhere, Pcp Primary Care Provider Unavailabl e Encounter Details Date Type Department Care Team (Late st Contact Info) Description 09/09/2023 Orders Only Division of Nephrology and Hypertension in [place], [place] [address] [place] [address] Haseeb Menon Jr., D.O. [address] [place] [address] Social History Tobacco Use Types Packs/Day Years [...] How often do you attend advent or latter day serv ices? 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
--- OUTSIDE RECORDS SUMMARY | 2023-10-18 09:38 | XMS_ITS | Encounter Summary ---
Author Organization [facility] Address [address] [place] [address] Care Team Providers Care Automatic Mold Sander Name Role Phone Elsewhere, Pcp Primary Care Provider Unavailabl e Encounter Details Date Type Department Care Team (Late st Contact Info) Description 08/16/2023 Documentation Division of Nephrology and Hypertension, [facility], in [place], [place] [address] [place] [address] Ishan Guardado, JULIÁN, C.N.P., M.S.N. [address] [place] [phone] Social History Tobacco Use Types Packs/Day Years [...] How often do you attend anglican or yazidi serv ices? Never 03/24/2021 Do [...] 0 10/20/2018 [facility] - Occupational Stress Questionnaire [...] your living situation today? I have a [facility] place to live 10/26/2022 Education Answer Date Recorded What is the highest level of school you have completed or the highest degree you have received? 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
--- OUTSIDE RECORDS SUMMARY | 2023-10-18 09:38 | XMS_ITS | Encounter Summary ---
Author Organization [facility] Address [address] [place] [address] Care Team Providers Care Process Improvement Consultant Name Role Phone Elsewhere, Pcp Primary Care Provider Unavailpaola e Encounter Details Date Type Department Care Team (Late st Contact Info) Description 08/19/2016 Historical Ophthalmology [facility] Chalo Holland Jr., M.D. 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 Gender Identity Male 08/31/2019 2:40 PM CDT [...] IOL OU CDM Reports - EYEGEN Id: [id number] Status: Fnl documented in this encounter Plan of Treatment Not on file documented as of this encounter Visit Diagnoses Not on filedocumented in this encounter Additional Health Concerns Infection Onset Date Last Indicated Resolved Time COVID19 Pending 05/08/2020 05/08/2020 05/08/2020 2 :44 PM HOGSHEAD OPENER Assessment Noted Time PHQ-9 Depression Total Score: 7 08/17/19 17 9:01 AM CDT documented as of this encounter Care Teams Process Improvement Consultant Relationship Specialty Start Date End Date Elsewhere, Pcp PCP - General Family Medicine 01/29/20 documented as of this encounter
--- OUTSIDE RECORDS SUMMARY | 2023-10-18 09:38 | XMS_ITS | Encounter Summary ---
Author Organization [facility] Address [address] [place] [address] Care Team Providers Care Gas Dispatcher Name Role Phone Elsewhere, Pcp Primary Care Provider Unavailabl e Encounter Details Date Type Department Care Team (Late st Contact Info) Description 09/09/2023 Documentation Division of Nephrology and Hypertension in [place], [place] [address] [place] [address] Haseeb Menon Jr., D.O. [address] [place] [address] Social History Tobacco Use Types Packs/Day Years [...] How often do you attend mu-ism or rastafarian serv ices? 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
--- OUTSIDE RECORDS SUMMARY | 2023-10-18 09:38 | XMS_ITS | Clinical Summary ---
Author Organization [facility] Address [address] [place] [address] Care Team Providers Care Blanket Folder Name Role Phone Elsewhere, Pcp Primary Care Provider Unavailabl e Source Comments Patient records contain information from all sites at [facility]. For routine questions regarding patient records, call [phone] during business hours, M-F 8:00 AM - 5:00 PM Central Time. 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 Active sodium bicarbonate 650 mg tabletIndications: Hypertension And Chronic Kidney Disease Stage 4 DISSOLVE [...] meals. 540 capsule 3 06/17/2023 06/16/2024 Active lisinopriL (PRINIVIL,ZESTRIL) 40 mg tablet Take 0.5 tablets (20 mg total) by mouth daily. Patient reports it was decreased by primary physician about 04/2020 per patient report. 45 tablet 3 09/13/2023 09/12/2024 Active Active Problems Patient Care Coordination No [...] 04/21/2018 Restless Leg Syndrome 01/12/2018 Atherosclerosis Of [place] Ar 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 08/08/2017 Hyperlipidemia 07/22/2017 Ulcer Leg Left 04/19/2017 Ulcer Toe Left 04/19/2017 Atherosclerosis Of [place] Ar teries Of Left Leg With Ulceration Of Unspecified Site 04/19/2017 Peripheral Arterial Disease 02/16/2017 Hypertension NOS 02/16/2017 Hypertension And Chronic Kidney Disease Stage 4 09/23/2016 Overview: Hypertension (HTN) And CKD Stage 1-4 Nephrology Social Worker Use Of Insulin Active 09/23/2016 Overview: Nephrology Social Worker Use Of Insulin Active Depression Major Recurrent Moderate 06/22/2016 Overview: Depression Major Recurrent Moderate Diabetes Mellitus Type 2 Wit h Other Circulatory Complication 06/22/2016 Overview: DM2 Peripheral Neuropathy Uncontrolled Encounters Date Type Department Care Team Description 09/13/2023 Documentation Division of Nephrology and Hypertension in [place], [place] [address] [place] [address] Haseeb Menon Jr., D.O. 09/13/2023 Orders Only Division of Nephrology and Hypertension in [place], [place] [address] [place] [address] Haseeb Menon Jr., D.O. Atherosclerosis Of [place] Ar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 (HCC) (Primary Dx); Diabetes Mellitus Type 2 With Other Circulatory Complication (HCC); Anemia Of Chronic Renal Disease; Sleep Apnea 09/09/2023 Documentation Division of Nephrology and Hypertension in [place], [place] [address] [place] [address] Haseeb Menon Jr., D.O. 09/09/2023 Orders Only Division of Nephrology and Hypertension in [place], [place] [address] [place] [address] Haseeb Menon Jr., D.O. 09/09/2023 Clinical Communication Division of Nephrology and Hypertension in [place], [place] [address] [place] [address] Haseeb Menon Jr., D.O. Hypertension 08/16/2023 Documentation Division of Nephrology and Hypertension, [facility], in [place], [place] [address] [place] [address] Ishan Guardado APRN C.N.P., M.S.N. 08/16/2023 Orders Only Division of Nephrology and Hypertension, [facility], in [place], [place] [address] [place] [address] Ishan Guardado APRN C.N.P., M.S.N. 08/15/2023 Clinical Communication Division of Nephrology and Hypertension in [place], [place] [address] [place] [address] Haseeb Menon Jr., D.O. New Symptoms 08/09/2023 Documentation Division of Nephrology and Hypertension in [place], [place] [address] [place] [address] Haseeb Menon Jr., D.O. 08/09/2023 Orders Only Division of Nephrology and Hypertension in [place], [place] [address] [place] [address] Haseeb Menon Jr., D.O. from Last 3 [...] How often do you attend alevism or samaritan serv ices? Never 03/24/2021 Do [...] Answer Date Recorded PHQ-2 Score 0 10/20/2018 [facility] [place] of Occupat ional Health - Occupational Stress [...] Sex Assigned at Male 03/24/2021 8:13 PM ROTARY SHEAR CUTTER Gender Identity Male 08/31/2019 2:40 PM [...] history exists Medical Devices Implanted Type Area Senior Gl Accountant Device Identifier Shelf Expiration Date Model / Serial / Lot Patch Vasc Bovine.08cm X 8cm - Flores [id number] Implanted:Qty: 1 on 04/04/2017 Mesh or Patch Other/Legacy - See Implant Description Synovis Description:Device Manufactu rer - Synovis. Body Location - Other. Vascular. Device Status Text - [id number]. Ocular Lens-10/29/2007 Implanted:10/28 by Nato Dougherty, JULIÁN, C.N.P., R.N. (Quantity not on file) Ocular Lens Bilateral: Eye Description:Cataract extract ion and insertion of intraocular lens 06/22/2016 09:27 - NATO DOUGHERTY CELERY CUTTER ELECTRO OPTICS ENGINEER bilateral Conversions - Default Historical Implant Device [...] 6mm X 29mm X 135cm - Flores [id number] Implanted:Qty: 1 on 03/04/2017 Vascular Graft Udell Description:Device Manufactu rer - [employer]ell [employer]. Device Status Text - [id number]. Stent Vbx [id number] - Flores [id number] Implanted:Qty: 1 on 03/04/2017 Vascular Graft Other/Legacy - See Implant Description Udell Description:Device Manufactu rer - [employer] Body Location - Other. n/a. Device Status Text - [id number]. Stent Vbx [id number] - Flores [id number] Implanted:Qty: 1 on 03/04/2017 Vascular Graft Other/Legacy - See Implant Description Udell Description:Device Manufactu rer - [employer] Body Location - Other. n/a. Device Status Text - [id number]. Stent Zilver Ptx 6mm X 40mm - Flores [id number] Implanted:Qty: 1 on 04/04/2017 Vascular Stent Other/Legacy - See Implant Description [employer] Description:Device Manufactu rer - [employer]. Body Location - Other. Left. Device Status Text - [id number]. Stent Zilver Ptx 6mm X 60mm - Flores [id number] Implanted:Qty: 1 on 04/04/2017 Vascular Stent Other/Legacy - See Implant Description [employer] Description:Device Manufactu rer - [employer]. Body Location - Other. Left. Device Status Text - [id number]. Stent Zilver Ptx 6mm X 80mm - Flores [id number] Implanted:Qty: 1 on 08/31/2017 Vascular Stent Right: Other/Legacy - See Implant Description [employer] / [id number] / Description:Device Manufactu rer - [employer]. Body Location - Right. Device Status Text - [id number]. Stent Zilver Ptx 6mm X 40mm - Flores [id number] Implanted:Qty: 1 on 08/31/2017 Vascular Stent Right: Other/Legacy - See Implant Description [employer] / [id number] / Description:Device Manufactu rer - [employer]. Body Location - Right. Device Status Text - [id number]. Stnt Innova Otw [id number] - [id number] Implanted:Qty: 1 on 04/18/2018 by Kemar Velásquez M.B.B.S. at [facility] Vascular Stent [employer] 05/23/2020 [id number] / / [id number] [facility] Madi Otw [id number] - [id number] Implanted:Qty: 1 on 05/11/2019 by Kemar Velásquez M.B.B.S. at [facility] Vascular Stent Left: Leg [employer] 09/05/2020 [id number] / / [id number] Procedures Procedure Name Priority Date/Time Associated Diagnosis [...] Renal Disease Acidosis Metabolic Hyperchloremic Atherosclerosis Of [place] Ar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 (HCC) CT ABDOMEN PELVIS WITHOUT IV CONTRAST RAD - Routine (most inpatients and all outpatients) 05/27/2022 4:19 PM ROTARY SHEAR CUTTER LIPID PANEL, S Routine 02/10/2021 8:27 AM CDT Peripheral Arterial Disease (HCC) Diabetes Mellitus Type 2 With Other Circulatory Complication Hyperglycemic (HCC) 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) CT CHEST WITHOUT IV CONTRAST RAD - Routine (most inpatients and all outpatients) 05/07/2020 9:29 PM ROTARY SHEAR CUTTER from Last 3 Months or Most Recently [...] 9:35 AM CDT 02/17/2023 11:01 AM CDT [facility] - 02/17/2023 4:02 PM CDT Specimen Information: Specimen ID: [id number] Specimen Type: Blood Specimen Collection Start Date: 02/17/2023 ??9:35 AM Specimen Received Date: 02/17/2023 11:01 AM Specimen ID: [id number] Specimen Type: Blood Specimen Collection Start Date: 02/17/2023 ??9:35 AM Specimen Received Date: 02/17/2023 ??3:35 PM Haseeb Menon Jr., D.O. LAB BLOOD AD D-ON [facility] [address] [place] [address], [facility] OWAT [facility] [place] [address] [place] [address] AUST [facility] - [facility] [address] [place] [address] * HCV Ab Scrn w/Reflex to HCV PCR, Serum (02/17/2023 9:35 AM CDT) [facility] HCV Ab Screen, S Negative Negative 02/18/20 3:35 PM CDT MKTO Comment: Biotin has been identified by the enterprise application architect as a potential interfering substance. Higher concentrations of biotin may be found in multivitamins, hair/nail supplements, and workout supplements. If the result does not match clinical observations, repeat testing after patient refrains from the use of supplements for at least 12 hours. Blood (Blood, Venous) 02/17/2023 9:35 AM CDT 02/17/2023 2:[address] [facility] - 02/17/2023 3:35 PM CDT Specimen Information: Specimen ID: [id number] Specimen Type: Blood Specimen Collection Start Date: 02/17/2023 ??9:35 AM Specimen Received Date: 02/17/2023 ??2:20 PM Specimen ID: [id number] Specimen Type: Blood Specimen Collection Start Date: 02/17/2023 ??9:35 AM Specimen Received Date: 02/17/2023 ??2:16 PM Haseeb Menon Jr., D.O. LAB MICROBIO LOGY - BLOOD ORDERABLES Performing Organization Address City/[facility]/ZIP Co de Phone Number [facility] [address] [place] [address], [facility] MKTO [facility] in [place] [address] [place] [address] * (ABNORMAL) Albumin, Random, Urine (02/17/2023 9:26 AM CDT) Microalbumin 895.0 mg/L 02/17/2023 1:53 PM CDT OW[facility] Creatinine 42 mg/dL 02/17/2023 12:50 PM CDT OW[facility] Albumin/Creatinin e Ratio 2131(H) <17 mg/g 02/17/2023 1:53 PM CDT [facility] Urine (Urine, Voided) 02/17/2023 9:26 AM CDT 02/17/2023 11:00 AM CDT Haseeb Menon Jr., D.O. LAB URINE OR DERABLES Performing Organization Address [facility] Co de Phone Number [facility] [address] [place] [address], [facility] OW[facility] [place] [address] [place] [address] * (ABNORMAL) Hemoglobin A1c (11/25/2022 2:09 PM [...] Menon Jr., D.O. LAB BLOOD AD D-ON [facility] [address] [place] [address], [place] [facility] [place] [address] [place] [address] * (ABNORMAL) Lipid Panel (02/10/2021 8:27 AM CDT) [facility] Cholesterol, Total 102 mg/dL 2020 10:06 AM [...] AM CDT Kemar Reyes LAB BLOOD ADD-ON [facility] [address] [place] [address], [facility] [address] [place] [address] from Last 3 Months or Most Recently Relevant to Health Maintenance Advance Directives For more information, please contact: [phone] * Full Code (Latest Code Status on [...] Answer Comments Full Code: Discussed Care Teams Blanket Folder Relationship Specialty Start Date End Date Elsewhere, Pcp PCP - General Family Medicine 01/29/20
--- OUTSIDE RECORDS SUMMARY | 2023-10-18 09:38 | XMS_ITS | Encounter Summary ---
Author Organization [facility] Address [address] [place] [address] Care Team Providers Care Senior Power Plant Operator Name Role Phone Elsewhere, Pcp Primary Care Provider Unavailabl e Encounter Details Date Type Department Care Team (Late st Contact Info) Description 09/13/2023 Documentation Division of Nephrology and Hypertension in [place], [place] [address] [place] [address] Haseeb Menon Jr., D.O. [address] [place] [address] Social History Tobacco Use Types Packs/Day Years [...] How often do you attend scientologist or anglican serv ices? 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 - 09/13/2023 9:30 AM CDT Care coordination-dialysis visit: Please see the sure scripts tab, in Care everywhere or the documents tab regarding his full dialysis notes from the [facility] Dialysis home program. Fair amount of confusion [...] as of this encounter Care Teams Senior Power Plant Operator Relationship Specialty Start Date End Date Elsewhere, Pcp PCP - General Family Medicine 01/29/20 documented as of this encounter
--- OUTSIDE RECORDS SUMMARY | 2023-10-18 09:38 | XMS_ITS | Encounter Summary ---
Author Organization [facility] Address [address] [place] [address] Care Team Providers Care Irish Moss Operator Name Role Phone Elsewhere, Pcp Primary Care Provider Unavailabl e Encounter Details Date Type Department Care Team (Late st Contact Info) Description 08/16/2023 Orders Only Division of Nephrology and Hypertension, [facility], in [place], [place] [address] [place] [address] Ishan Guardado, JULIÁN, C.N.P., M.S.N. 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
--- OUTSIDE RECORDS SUMMARY | 2023-10-18 09:38 | XMS_ITS | Encounter Summary ---
Author Organization [facility] Address [address] [place] [address] Care Team Providers Care Vendor Management Consultant Name Role Phone Elsewhere, Pcp Primary Care Provider Unavailabl e Encounter Details Date Type Department Care Team (Late st Contact Info) Description 08/09/2023 Orders Only Division of Nephrology and Hypertension in [place], [place] [address] [place] [address] Haseeb Menon Jr., D.O. [address] [place] [address] Social History Tobacco Use Types Packs/Day Years [...] How often do you attend mormon or muslim serv ices? Never 03/24/2021 Do [...] living situation today? I have a [facility] place to live 10/26/2022 Education Answer Date Recorded What is the highest level of school you have completed or the highest degree you have received? 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
--- OUTSIDE RECORDS SUMMARY | 2023-10-18 09:38 | XMS_ITS | Encounter Summary ---
Author Organization [facility] Address [address] [place] [address] Care Team Providers Care Counter Maker Name Role Phone Elsewhere, Pcp Primary Care Provider Unavailabl e Reason for Visit * Reason Onset Date Comments New Symptoms 08/15/2023 Encounter Details Date Type Department Care Team (Latest Contact Info) Description 08/15/2023 Clinical Communication Division of Nephrology and Hypertension in [place], [place] [address] [place] [address] Haseeb Menon Jr., D.O. [address] [place] [address] New Symptoms Social History Tobacco Use Types [...] How often do you attend worship or mandaen serv ices? Never 03/24/2021 Do [...] Score 0 10/20/2018 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 Per his medication database, a Peritoneal [...] The following references were used: other [facility] Pharmacist . * Telephone Encounter - Chloe Lazo - 08/15/2023 10:43 AM CDT Caller is: : Authorization YES Preferred Communication Method: [phone] Reason for call: Pt's , Siria, called [...] documented as of this encounter Care Teams Counter Maker Relationship Specialty Start Date End Date Elsewhere, Pcp PCP - General Family Medicine 01/29/20 documented as of this encounter
--- OUTSIDE RECORDS SUMMARY | 2023-10-18 09:38 | XMS_ITS | Encounter Summary ---
Author Organization [facility] Address [address] [place] [address] Care Team Providers Care Doughnut Glazier Name Role Phone Elsewhere, Pcp Primary Care Provider Unavailabl e Reason for Referral * Outpatient (Routine) - Authorized Specialty Diagnoses / Procedures Referred By Robi hong Referred To Contact Sleep Medicine Diagnoses Atherosclerosis Of [place] Ar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 (HCC) Diabetes Mellitus Type 2 With Other Circulatory Complication (HCC) Anemia Of Chronic Renal Disease Sleep Apnea Haseeb Menon Jr., D.OFei [address] [place] [address] [facility] Referral ID Status Reason Start Date Expiration Date Visits Requested Visits Authorized [id number] Authorized Specialty Services Required 09/13/2023 03/14/2025 1 1 Encounter Details Date Type Department Care Team (Latest Contact Info) Description 09/13/2023 Orders Only Division of Nephrology and Hypertension in [place], [place] [address] [place] [address] Haseeb Menon Jr., D.O. [address] [place] [address] Atherosclerosis Of [place] Arteries Of Extremities With Intermittent Claudication Right [...] How often do you attend yarsanism or buddhism serv ices? 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 Gender Identity Male 08/31/2019 2:40 PM CDT Sexual Orientation Straight 08/31/2019 2: 40 PM CDT documented as of this encounter Plan of Treatment Scheduled Referrals Name Type Priority Associated Diagnoses Orde r Schedule Sleep Medicine - General consult (clinic) Outpatient Referral Routine Atherosclerosis Of [place] Arteries Of Extremities With Intermittent Claudication Right Leg (HCC) Diabetes Mellitus Type 2 With Other Circulatory Complication (HCC) Anemia Of Chronic Renal Disease Sleep Apnea Expected: 09/13/2023, Expires: 12/12/2024 documented as of this encounter Visit Diagnoses Diagnosis Atherosclerosis Of [place] Arteries Of Extremities With Intermittent Claudication Right Leg (HCC)- Primary Diabetes Mellitus Type 2 With Other Circulatory Complication (HCC) Anemia Of Chronic Renal Disease Sleep Apnea documented in this encounter Additional Health Concerns Assessment Noted Time PHQ-9 Depression Total Score: 3 01/04/20 18 10:38 AM CDT documented as of this encounter Care Teams Doughnut Glazier Relationship Specialty Start Date End Date Elsewhere, Pcp PCP - General Family Medicine 01/29/20 documented as of this encounter
--- OUTSIDE RECORDS SUMMARY | 2023-10-18 09:38 | XMS_ITS ---
Author Organization [facility] Address [address] [place] [address] Care Team Providers Care Safety And Skill Based Pay Manager Name Role Phone Unavailable Unavailable Unavailable Surgery Details Not on file Complications Check Surgery Details section. Procedure Estimated Blood Loss Check Surgery Details section. Procedure Findings Check Surgery Details section. Procedure Specimens Taken Check Surgery Details section.
--- OUTSIDE RECORDS SUMMARY | 2023-10-18 09:38 | XMS_ITS | Referral Summary ---
Author Organization [facility] Address [address] [place] [address] Care Team Providers Care Pre Planning Advisor Name Role Phone Elsewhere, Pcp Primary Care Provider Unavailabl e Source Comments Patient records contain information from all sites at [facility]. For routine questions regarding patient records, call [phone] during business hours, M-F 8:00 AM - 5:00 PM Central Time. Record requests for emergency care only can be directed to [phone] at any time.[facility] Encounters Date Type Department Care Team Description 09/13/2023 Documentation Division of Nephrology and Hypertension in [place], [place] [address] [place] [address] Haseeb Menon Jr., D.O. 09/13/2023 Orders Only Division of Nephrology and Hypertension in [place], [place] [address] [place] [address] Haseeb Menon Jr., D.O. Atherosclerosis Of [place] Arteries Of Extremities With Intermittent Claudication Right Leg (HCC) (Primary Dx); Diabetes Mellitus Type 2 With Other Circulatory Complication (HCC); Anemia Of Chronic Renal Disease; Sleep Apnea 09/09/2023 Documentation Division of Nephrology and Hypertension in [place], [place] [address] [place] [address] Haseeb Menon Jr., D.O. 09/09/2023 Orders Only Division of Nephrology and Hypertension in [place], [place] [address] [place] [address] Haseeb Menon Jr. D.O. 09/09/2023 Clinical Communication Division of Nephrology and Hypertension in [place], [place] [address] [place] [address] Haseeb Menon Jr., EstivenO. Hypertension 08/16/2023 Documentation Division of Nephrology and Hypertension, [facility], in [place], [place] [address] [place] [address] Ishan Guardado APRN, C.N.Kinza., M.S.N. 08/16/2023 Orders Only Division of Nephrology and Hypertension, [facility], in [place], [place] [address] [place] [address] Ishan Guardado APRN, C.N.Kinza., M.S.N. 08/15/2023 Clinical Communication Division of Nephrology and Hypertension in [place], [place] [address] [place] [address] Haseeb Menon Jr., Brittnee. New Symptoms 08/09/2023 Documentation Division of Nephrology and Hypertension in [place], [place] [address] [place] [address] Haseeb Menon Jr., D.O. 08/09/2023 Orders Only Division of Nephrology and Hypertension in [place], [place] [address] [place] [address] Haseeb Menon Jr., D.O. from Last 3 Months Allergies Active Allergy Reactions Criticality Noted Date Comments Gabapentin Other (see comments) Medium 08/04/2020 Dizzy, memory issue Morphine Itching,Rash Medium 02/14/2012 itchy Pregabalin Anaphylaxis High 02/16/2017 swell Hnolauu-Kuo-Qxz Reductase Inhibitors Myalgia Low 02/13/2014 Medications Medication [...] CAPSULE BY MOUTH EVERY DAY NURSING HOME 01/14/2022 Active allopurinoL (ZYLOPRIM) 100 mg tablet [...] 04/21/2018 Restless Leg Syndrome 01/12/2018 Atherosclerosis Of [place] Ar teries Of Extremities With Intermittent Claudication Right Leg 08/08/2017 Hyperlipidemia 07/22/2017 Ulcer Leg Left 04/19/2017 Ulcer Toe Left 04/19/2017 Atherosclerosis Of [place] Ar teries Of Left Leg With Ulceration Of Unspecified Site 04/19/2017 Peripheral Arterial Disease 02/16/2017 Hypertension NOS 02/16/2017 Hypertension And Chronic Kidney Disease Stage 4 09/23/2016 Overview: Hypertension (HTN) And CKD Stage 1-4 Half-Way Use Of Insulin Active 09/23/2016 Overview: Half-Way Use Of Insulin Active Depression Major Recurrent Moderate 06/22/2016 Overview: Depression Major Recurrent Moderate Diabetes Mellitus Type 2 Wit h Other Circulatory Complication 06/22/2016 Overview: DM2 Peripheral Neuropathy Uncontrolled Immunizations [...] How often do you attend buddhism or temple serv ices? 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 Body Location - Other. Vascular. Device Status Text - [id number]. Ocular Lens-10/29/2007 Implanted:10/28 by Nato Dougherty APRN, C.N.P., R.N. 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 Device Status Text - [id number]. Stent Vbx [id number] - Flores [id number] Implanted:Qty: 1 on 03/04/2017 Vascular Graft Other/Legacy - See Implant Description Raven Description:Device Manufactu rer - [employer] Body Location - Other. n/a. Device Status Text - [id number]. Stent Vbx [id number] - Flores [id number] Implanted:Qty: 1 on 03/04/2017 Vascular Graft Other/Legacy - See Implant Description Raven Description:Device Manufactu rer - [employer] Body Location - Other. n/a. Device Status Text - [id number]. Stent Zilver Ptx 6mm X 40mm - Flores [id number] Implanted:Qty: 1 on 04/04/2017 Vascular Stent Other/Legacy - See Implant Description [employer] Description:Device Manufactu rer - Lingu[employer]. Body Location - Other. Left. Device Status Text - [id number]. Stent Zilver Ptx 6mm X 60mm - Flores [id number] Implanted:Qty: 1 on 04/04/2017 Vascular Stent Other/Legacy - See Implant Description [employer] Description:Device Manufactu rer - [employer]. Body Location - Other. Left. Device Status Text - [id number]. Stent Zilver Ptx 6mm X 80mm - Flores [id number] Implanted:Qty: 1 on 08/31/2017 Vascular Stent Right: Other/Legacy - See Implant Description [employer] / [id number] / Description:Device Manufactu rer - [employer]. Body Location - Right. Device Status Text - [id number]. Stent Zilver Ptx 6mm X 40mm - Flores [id number] Implanted:Qty: 1 on 08/31/2017 Vascular Stent Right: Other/Legacy - See Implant Description [employer] / [id number] / Description:Device Manufactu [employer] - [employer]. Body Location - Right. Device Status Text - [id number]. Stnt Innova Otw [id number] - [id number] Implanted:Qty: 1 on 04/18/2018 by Kemar Velásquez M.B.B.S. at [facility] Vascular Stent [employer] 05/23/2020 [id number] / / [id number] Stnt Innova Otw [id number] - [id number] Implanted:Qty: 1 on 05/11/2019 by Kemar Velásquez M.B.B.S. at [facility] Vascular Stent Left: Leg [employer] 09/05/2020 [id number] / / [id number] Procedures Procedure Name Priority Date/Time Associated Diagnosis [...] Renal Disease Acidosis Metabolic Hyperchloremic Atherosclerosis Of [place] Arteries Of Extremities With Intermittent Claudication Right Leg (HCC) CT ABDOMEN PELVIS WITHOUT IV CONTRAST RAD - Routine (most inpatients and all outpatients) 05/27/2022 4:19 PM FEATHEREDGER AND REDUCER MACHINE LIPID PANEL, S Routine 02/10/2021 8:27 AM CDT Peripheral Arterial Disease (HCC) Diabetes Mellitus Type 2 With Other Circulatory Complication Hyperglycemic (HCC) 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) CT CHEST WITHOUT IV CONTRAST RAD - Routine (most inpatients and all outpatients) 05/07/2020 9:29 PM FEATHEREDGER AND REDUCER MACHINE from Last 3 Months or Most Recently Relevant to Health Maintenance Results * (ABNORMAL) Renal Function Panel (02/17/2023 9:35 AM CDT) Pathologist [facility] Potassium, P 4.4 3.6 - [...] AM CDT 02/17/2023 11:01 AM CDT Narrative [facility] - 02/17/2023 4:02 PM CDT Specimen Information: Specimen ID: [id number] Specimen Type: Blood Specimen Collection Start Date: 02/17/2023 ??9:35 AM Specimen Received Date: 02/17/2023 11:01 AM Specimen ID: [id number] Specimen Type: Blood Specimen Collection Start Date: 02/17/2023 ??9:35 AM Specimen Received Date: 02/17/2023 ??3:35 PM Haseeb Menon Jr., D.O. LAB BLOOD AD D-ON [facility] [address] [place] [address], [facility] in [place] [address] [place] [address] AUST [facility] - [facility] [address] [place] [address] * HCV Ab Scrn w/Reflex to HCV PCR, Serum (02/17/2023 9:35 AM CDT) HCV Ab Screen, S Negative Negative 02/18/20 3:35 PM CDT [facility] Comment: Biotin has been identified by the explosive operator grenade as a potential interfering substance. Higher concentrations of biotin may be found in multivitamins, hair/nail supplements, and workout supplements. If the result does not match clinical observations, repeat testing after patient refrains from the use of supplements for at least 12 hours. Blood (Blood, Venous) 02/17/2023 9:35 AM CDT 02/17/2023 2:20 PM CDT Narrative [facility] - 02/17/2023 3:35 PM CDT Specimen Information: Specimen ID: [id number] Specimen Type: Blood Specimen Collection Start Date: 02/17/2023 ??9:35 AM Specimen Received Date: 02/17/2023 ??2:20 PM Specimen ID: [id number] Specimen Type: Blood Specimen Collection Start Date: 02/17/2023 ??9:35 AM Specimen Received Date: 02/17/2023 ??2:16 PM Haseeb Menon Jr., D.O. LAB MICROBIO LOGY - BLOOD ORDERABLES [facility] [address] [place] [address], [place] [address] * (ABNORMAL) Albumin, Random, Urine (02/17/2023 9:26 AM CDT) Microalbumin 895.0 mg/L 02/17/2023 1:53 PM CDT [facility] Creatinine 42 mg/dL 02/17/2023 12:50 PM CDT [facility] Albumin/Creatinin e Ratio 2131(H) <17 mg/g 02/17/2023 1:53 PM CDT [facility] Urine (Urine, Voided) 02/17/2023 9:26 AM CDT 02/17/2023 11:00 AM CDT Haseeb Menon Jr., D.O. LAB URINE OR DERABLES Performing Organization Address [facility] Co de Phone Number [facility] [address] [place] [address], [facility] [place] [address] [place] [address] * (ABNORMAL) Hemoglobin A1c (11/25/2022 2:09 PM [...] LAB BLOOD AD D-ON Performing Organization Address [facility] Co de Phone Number [facility] [address] [place] [address], [facility] in [place] [address] [place] [phone] * (ABNORMAL) Lipid Panel (02/10/2021 8:27 AM [...] AM CDT Kemar Reyes LAB BLOOD ADD-ON [facility] [address] [place] [address], [facility] [address] [place] [address] from Last 3 Months or Most Recently Relevant to Health Maintenance Advance Directives For more information, please contact: [phone] * Full Code (Latest Code Status on [...] Answer Comments Full Code: Discussed Care Teams Pre Planning Advisor Relationship Specialty Start Date End Date Elsewhere, Pcp PCP - General Family Medicine 01/29/20
--- OUTSIDE RECORDS SUMMARY | 2023-10-18 09:38 | XMS_ITS | Encounter Summary ---
Author Organization [facility] Address [address] [place] [address] Care Team Providers Care Supervisor Bottle Machines Name Role Phone Elsewhere, Pcp Primary Care Provider Unavailabl e Encounter Details Date Type Department Care Team (Late st Contact Info) Description 08/09/2023 Documentation Division of Nephrology and Hypertension in [place], [place] [address] [place] [address] Haseeb Menon Jr., D.O. [address] [place] [address] Social History Tobacco Use Types Packs/Day Years [...] How often do you attend judaism or mormon serv ices? 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 - 08/09/2023 3:25 PM CDT Care coordination-home dialysis clinic note Please see the [facility] sure scripts and Care everywhere note from [...] as of this encounter Care Teams Supervisor Bottle Machines Relationship Specialty Start Date End Date Elsewhere, Pcp PCP - General Family Medicine 01/29/20 documented as of this encounter
== END 2023-10-18 09:30 | disposition home or self-care (01) ==
PROVIDERS: PCP Family Medicine; Visit Provider Nurse Practitioner Family
DX: E11.621 Type 2 diabetes mellitus with foot ulcer (principal); L97.514 Non-pressure chronic ulcer of other part of right foot with necrosis of bone; M86.8X7 Other osteomyelitis, ankle and foot; E11.22 Type 2 diabetes mellitus with diabetic chronic kidney disease; N18.5 Chronic kidney disease, stage 5; Z96.41 Presence of insulin pump (external) (internal); Z99.2 Dependence on renal dialysis
CPT/HCPCS: 11042

== ENCOUNTER 2023-10-25 08:58 | Outpatient (CLI) | payer MEDICARE, BC, SELFPAY | END 2023-10-25 08:59 | disposition home or self-care (01) | LOC: WOUND 08:58 | PROVIDERS: PCP Family Medicine; Visit Provider Nurse Practitioner Family | DX: E11.621 Type 2 diabetes mellitus with foot ulcer (principal); L97.514 Non-pressure chronic ulcer of other part of right foot with necrosis of bone; E11.22 Type 2 diabetes mellitus with diabetic chronic kidney disease; N18.5 Chronic kidney disease, stage 5; Z96.41 Presence of insulin pump (external) (internal) | CPT/HCPCS: 11042 ==

== ENCOUNTER 2023-11-01 10:31 | Outpatient (CLI) | payer MEDICARE, BC, SELFPAY ==
--- OUTSIDE RECORDS SUMMARY | 2023-11-01 10:34 | XMS_ITS | Encounter Summary ---
Author Organization [facility] Address [address] [place] [address] Care Team Providers Care Soil Science Teacher Name Role Phone Elsewhere, Pcp Primary Care Provider Unavailabl e Encounter Details Date Type Department Care Team (Late st Contact Info) Description 08/16/2023 Documentation Division of Nephrology and Hypertension, [facility], in [place], [place] [address] [place] [address] Ishan Guardado, JULIÁN, C.N.P., M.S.N. [address] [place] [address] Social History Tobacco Use Types Packs/Day Years [...] How often do you attend anabaptism or shinto serv ices? 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
--- OUTSIDE RECORDS SUMMARY | 2023-11-01 10:34 | XMS_ITS | Referral Summary ---
Author Organization [facility] Address [address] [place] [address] Care Team Providers Care Core Fitter Name Role Phone Elsewhere, Pcp Primary Care Provider Unavailabl e Source Comments Patient records contain information from all sites at [facility]. For routine questions regarding patient records, call [phone] during business hours, M-F 8:00 AM - 5:00 PM Central Time. Record requests for emergency care only can be directed to [phone] at any time.[facility] Encounters Date Type Department Care Team Description 09/13/2023 Documentation Division of Nephrology and Hypertension in [place], [place] [address] [place] [address] Haseeb Menon Jr., D.O. 09/13/2023 Orders Only Division of Nephrology and Hypertension in [place], [place] [address] [place] [address] Haseeb Menon Jr., D.O. 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 09/09/2023 Orders Only Division of Nephrology and Hypertension in [place], [place] [address] [place] [address] Haseeb Menon Jr. D.O. 09/09/2023 Clinical Communication Division of Nephrology and Hypertension in [place], [place] [address] [place] [address] Haseeb Menon Jr., EstivenO. Hypertension 08/16/2023 Documentation Division of Nephrology and Hypertension, [facility], in [place], [place] [address] [place] [address] Ishan Guardado APRN, C.N.Kinza., M.S.N. 08/16/2023 Orders Only Division of Nephrology and Hypertension, [facility], in [place], [place] [address] [place] [address] Ishan Guardado APRN, C.N.Kinza., M.S.N. 08/15/2023 Clinical Communication Division of Nephrology and Hypertension in [place], [place] [address] [place] [address] Haseeb Menon Jr., Brittnee. New Symptoms 08/09/2023 Documentation Division of Nephrology and Hypertension in [place], [place] [address] [place] [address] Haseeb Menon Jr., D.O. 08/09/2023 Orders Only Division of Nephrology and Hypertension in [place], [place] [address] [place] [address] Haseeb Menon Jr., D.O. from Last 3 Months Allergies Active Allergy Reactions Criticality Noted Date Comments Gabapentin Other (see comments) Medium 08/04/2020 Dizzy, memory issue Morphine Itching,Rash Medium 02/14/2012 itchy Pregabalin Anaphylaxis High 02/16/2017 swell Pezjypr-Het-Fsx Reductase Inhibitors Myalgia Low 02/13/2014 Medications Medication [...] ONE CAPSULE BY MOUTH EVERY DAY [facility] 01/14/2022 Active allopurinoL (ZYLOPRIM) 100 mg tablet [...] 04/21/2018 Restless Leg Syndrome 01/12/2018 Atherosclerosis Of [place] Ar teries Of Extremities With Intermittent Claudication Right Leg 08/08/2017 Hyperlipidemia 07/22/2017 Ulcer Leg Left 04/19/2017 Ulcer Toe Left 04/19/2017 Atherosclerosis Of [place] Ar teries Of Left Leg With Ulceration Of Unspecified Site 04/19/2017 Peripheral Arterial Disease 02/16/2017 Hypertension NOS 02/16/2017 Hypertension And Chronic Kidney Disease Stage 4 09/23/2016 Overview: Hypertension (HTN) And CKD Stage 1-4 Fdc Use Of Insulin Active 09/23/2016 Overview: Fdc [...] How often do you attend orthodox or hinduism serv ices? Never 03/24/2021 Do [...] your living situation today? I have a [facility] place to live 10/26/2022 Education Answer Date Recorded What is the highest level of school you have completed or the highest degree you have received? 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 Body Location - Other. Vascular. Device Status Text - [id number]. Ocular Lens-10/29/2007 Implanted:10/28 by Nato Dougherty APRN, C.N.P., R.N. 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 Device Status Text - [id number]. Stent Vbx [id number] - Flores [id number] Implanted:Qty: 1 on 03/04/2017 Vascular Graft Other/Legacy - See Implant Description Elbe Description:Device Manufactu rer - W [employer] Elbe [employer] Body Location - Other. n/a. Device Status Text - [id number]. Stent Vbx [id number] - Flores [id number] Implanted:Qty: 1 on 03/04/2017 Vascular Graft Other/Legacy - See Implant Description Elbe Description:Device Manufactu rer - W [employer] Elbe [employer] Body Location - Other. n/a. Device Status Text - [id number]. Stent Zilver Ptx 6mm X 40mm - Flores [id number] Implanted:Qty: 1 on 04/04/2017 Vascular Stent Other/Legacy - See Implant Description V[employer]v [employer] Description:Device Manufactu rer - Viss. Body Location - Other. Left. Device Status Text - [id number]. Stent Zilver Ptx 6mm X 60mm - Flores [id number] Implanted:Qty: 1 on 04/04/2017 Vascular Stent Other/Legacy - See Implant Description Cook [employer]. Description:Device Manufactu rer - Vurv [employer] Medical. Body Location - Other. Left. Device Status Text - [id number]. Stent Zilver Ptx 6mm X 80mm - Flores [id number] Implanted:Qty: 1 on 08/31/2017 Vascular Stent Right: Other/Legacy - See Implant Description [employer]. / [id number] / Description:Device Manufactu rer - [employer]v [employer] Medical. Body Location - Right. Device Status Text - [id number]. Stent Zilver Ptx 6mm X 40mm - Flores [id number] Implanted:Qty: 1 on 08/31/2017 Vascular Stent Right: Other/Legacy - See Implant Description [employer]. / [id number] / Description:Device Manufactu [employer] - Vurv Technology Medical. Body Location - Right. Device Status Text - [id number]. Stnt Innova Otw [id number] - [id number] Implanted:Qty: 1 on 04/18/2018 by Kemar Velásquez M.B.B.S. at [facility] Vascular Stent [employer] 05/23/2020 [id number] / / [id number] Stnt Innova Otw [id number] - [id number] Implanted:Qty: 1 on 05/11/2019 by Kemar Velásquez M.B.B.S. 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) CT ABDOMEN PELVIS WITHOUT IV CONTRAST RAD - Routine (most inpatients and all outpatients) 05/27/2022 4:19 PM CERTIFIED MASTER LOCKSMITH LIPID PANEL, S Routine 02/10/2021 8:27 AM CDT Peripheral Arterial Disease (HCC) Diabetes Mellitus Type 2 With Other Circulatory Complication Hyperglycemic (HCC) 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) CT CHEST WITHOUT IV CONTRAST RAD - Routine (most inpatients and all outpatients) 05/07/2020 9:29 PM CERTIFIED MASTER LOCKSMITH from Last 3 Months or Most Recently Relevant to Health Maintenance Results * (ABNORMAL) Renal Function Panel (02/17/2023 9:35 AM CDT) Pathologist [facility] Potassium, P 4.4 3.6 - 5.2 mmol/L [...] AM CDT 02/17/2023 11:01 AM CDT Narrative [facility] - 02/17/2023 4:02 PM CDT Specimen Information: Specimen ID: [id number] Specimen Type: Blood Specimen Collection Start Date: 02/17/2023 ??9:35 AM Specimen Received Date: 02/17/2023 11:01 AM Specimen ID: [id number] Specimen Type: Blood Specimen Collection Start Date: 02/17/2023 ??9:35 AM Specimen Received Date: 02/17/2023 ??3:35 PM Haseeb Menon Jr., D.O. LAB BLOOD AD D-ON [facility] [address] [place] [address], [facility] OW[facility] in [place] [address] [place] [address] AUST [facility] - [facility] [address] [place] [address] * HCV Ab Scrn w/Reflex to HCV PCR, Serum (02/17/2023 9:35 AM CDT) HCV Ab Screen, S Negative Negative 02/18/20 3:35 PM CDT [facility] Comment: Biotin has been identified by the production inspector as a potential interfering substance. Higher concentrations of biotin may be found in multivitamins, hair/nail supplements, and workout supplements. If the result does not match clinical observations, repeat testing after patient refrains from the use of supplements for at least 12 hours. Blood (Blood, Venous) 02/17/2023 9:35 AM CDT 02/17/2023 2:20 PM CDT Narrative [facility] - 02/17/2023 3:35 PM CDT Specimen Information: Specimen ID: [id number] Specimen Type: Blood Specimen Collection Start Date: 02/17/2023 ??9:35 AM Specimen Received Date: 02/17/2023 ??2:20 PM Specimen ID: [id number] Specimen Type: Blood Specimen Collection Start Date: 02/17/2023 ??9:35 AM Specimen Received Date: 02/17/2023 ??2:16 PM Haseeb Menon Jr., D.O. LAB MICROBIO LOGY - BLOOD ORDERABLES [facility] [address] [place] [address], [place] [address] * (ABNORMAL) Albumin, Random, Urine (02/17/2023 9:26 AM CDT) Microalbumin 895.0 mg/L 02/17/2023 1:53 PM CDT [facility] Creatinine 42 mg/dL 02/17/2023 12:50 PM CDT [facility] Albumin/Creatinin e Ratio 2131(H) <17 mg/g 02/17/2023 1:53 PM CDT [facility] Urine (Urine, Voided) 02/17/2023 9:26 AM CDT 02/17/2023 11:00 AM CDT Haseeb Menon Jr., D.O. LAB URINE OR DERABLES Performing Organization Address [facility] Co de Phone Number [facility] [address] [place] [address], [facility] [place] [address] [place] [address] * (ABNORMAL) Hemoglobin A1c (11/25/2022 2:09 PM [...] AD D-ON Performing Organization Address [facility] Co de Phone Number [facility] [address] [place] [address], [facility] in [place] [address] [place] [phone] * (ABNORMAL) Lipid Panel (02/10/2021 8:27 AM [...] AM CDT Kemar Reyes LAB BLOOD ADD-ON [facility] [address] [place] [address], [facility] [address] [place] [address] from Last 3 Months or Most Recently Relevant to Health Maintenance Advance Directives For more information, please contact: [phone] * Full Code (Latest Code Status on [...] Answer Comments Full Code: Discussed Care Teams Core Fitter Relationship Specialty Start Date End Date Elsewhere, Pcp PCP - General Family Medicine 01/29/20
--- OUTSIDE RECORDS SUMMARY | 2023-11-01 10:34 | XMS_ITS | Encounter Summary ---
Author Organization [facility] Address [address] [place] [address] Care Team Providers Care Survey Research Professor Name Role Phone Elsewhere, Pcp Primary Care Provider Unavailabl e Encounter Details Date Type Department Care Team (Late st Contact Info) Description 09/09/2023 Orders Only Division of Nephrology and Hypertension in [place], [place] [address] [place] [address] Haseeb Menon Jr., D.O. [address] [place] [address] Social History Tobacco Use Types Packs/Day Years [...] How often do you attend religious or alevism serv ices? 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
--- OUTSIDE RECORDS SUMMARY | 2023-11-01 10:34 | XMS_ITS | Encounter Summary ---
Author Organization [facility] Address [address] [place] [address] Care Team Providers Care Compound Worker Name Role Phone Elsewhere, Pcp Primary Care Provider Unavailabl e Reason for Referral * Outpatient (Routine) - Authorized Specialty Diagnoses / Procedures Referred By Robi hong Referred To Contact Sleep Medicine Diagnoses Atherosclerosis Of [place]zan[place] Arteries Of Extremities With Intermittent Claudication Right Leg (HCC) Diabetes Mellitus Type 2 With Other Circulatory Complication (HCC) Anemia Of Chronic Renal Disease Sleep Apnea Haseeb Menon Jr., D.OFei [address] [place] [address] [facility] Referral ID Status Reason Start Date Expiration Date Visits Requested Visits Authorized [id number] Authorized Specialty Services Required 09/13/2023 03/14/2025 1 1 Encounter Details Date Type Department Care Team (Latest Contact Info) Description 09/13/2023 Orders Only Division of Nephrology and Hypertension in [place], [place] [address] [place] [address] Haseeb Menon Jr., D.O. [address] [place] [address] Atherosclerosis Of [place]zanita Arteries Of Extremities With Intermittent Claudication Right [...] How often do you attend congregation or gnosticist serv ices? Never 03/24/2021 Do [...] Answer Date Recorded PHQ-2 Score 0 10/20/2018 [facility] - Occupational Stress Questionnaire [...] Sex Assigned at Male 03/24/2021 8:13 PM ANATOMY PROFESSOR Gender Identity Male 08/31/2019 2:40 PM CDT Sexual Orientation Straight 08/31/2019 2: 40 PM CDT documented as of this encounter Plan of Treatment Scheduled Referrals Name Type Priority Associated Diagnoses Orde r Schedule Sleep Medicine - General consult (clinic) Outpatient Referral Routine Atherosclerosis Of [place]zan[place] Arteries Of Extremities With Intermittent Claudication Right Leg (HCC) Diabetes Mellitus Type 2 With Other Circulatory Complication (HCC) Anemia Of Chronic Renal Disease Sleep Apnea Expected: 09/13/2023, Expires: 12/12/2024 documented as of this encounter Visit Diagnoses Diagnosis Atherosclerosis Of [place]zan[place] Arteries Of Extremities With Intermittent Claudication Right Leg (HCC)- Primary Diabetes Mellitus Type 2 With Other Circulatory Complication (HCC) Anemia Of Chronic Renal Disease Sleep Apnea documented in this encounter Additional Health Concerns Assessment Noted Time PHQ-9 Depression Total Score: 3 01/04/20 18 10:38 AM CDT documented as of this encounter Care Teams Compound Worker Relationship Specialty Start Date End Date Elsewhere, Pcp PCP - General Family Medicine 01/29/20 documented as of this encounter
--- OUTSIDE RECORDS SUMMARY | 2023-11-01 10:34 | XMS_ITS | Encounter Summary ---
Author Organization [facility] Address [address] [place] [address] Care Team Providers Care Finished Carpet Inspector Name Role Phone Elsewhere, Pcp Primary Care Provider Unavailabl e Encounter Details Date Type Department Care Team (Late st Contact Info) Description 09/09/2023 Documentation Division of Nephrology and Hypertension in [place], [place] [address] [place] [address] Haseeb Menon Jr., D.O. [address] [place] [address] Social History Tobacco Use Types Packs/Day Years [...] How often do you attend spiritism or mormonism serv ices? 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/2021 8:13 PM SYNTHETIC SOIL BLOCKS PULPER Gender Identity Male 08/31/2019 2:40 PM CDT [...] documented as of this encounter Care Teams Finished Carpet Inspector Relationship Specialty Start Date End Date Elsewhere, Pcp PCP - General Family Medicine 01/29/20 documented as of this encounter
--- OUTSIDE RECORDS SUMMARY | 2023-11-01 10:34 | XMS_ITS | Clinical Summary ---
Author Organization [facility] Address [place], [place] [address] Care Team Providers Care Deputy Administrator Name Role Phone Casa Lucia MD Unavailable Unavailable uRdy Riddle MD Unavailable [phone] Rudy Riddle MD Primary Care Provider + Allergies Active Allergy Reactions Criticality Noted Date Comments Gabapentin Other - Describe In Comment Field Medium 08/04/2020 Dizzy, memory issue Dizzy, memory issue Morphine Itching 02/04/2010 After 3 days of use Pregabalin Anaphylaxis,Itching High 02/16/2017 swetesfaye jane Uoosxbf-Gfz-Lvi Reductase Inhibitors Myalgia 02/13/2014 Medications Medication Sig [...] Care Team Description 09/13/2023 Lab Requisition [facility] [phone] Unknown, Doctor from Last 3 Months Immunizations [...] Comments Blood Pressure 162/87 07/21/2022 9:21 PM MACHINE DYER Pulse 100 07/21/2022 9:21 PM MACHINE DYER Temperature 37.1 ??C (98.8 ??F) 07/21/2022 8:51 PM CS T Respiratory Rate 18 07/21/2022 8:51 PM MACHINE DYER Oxygen Saturation 96% 07/21/2022 9:21 PM MACHINE DYER Inhaled Oxygen Concentration - - Weight 83.9 kg (185 lb) 07/21/2022 5:35 PM MACHINE DYER Height 175.3 cm (5' 9) 07/21/2022 5:35 PM MACHINE DYER Body Mass Index 27.32 07/21/2022 5:35 PM MACHINE DYER Plan of Treatment Health Maintenance Due Date [...] age 77 05/12/203205/12, 02/04/2006 (Completed outside of [facility]) Tdap Completed 08/16/2016 Pneumococcal series [...] 0 AM CDT COLONOSCOPY 05/12/2022 8:51 AM MACHINE DYER LIPID PANEL W REFLEX MEASURED LDL Routine 02/16/2016 8:59 AM CDT Hyperlipidemia, unspecified hyperlipidemia type from Last 3 Months or Most Recently Relevant to Health Maintenance Results * LAB TRACKING EVENT (09/13/2023 11:00 AM CDT) Other (Other) Client Collect / Unknown 09/13/2023 11:00 AM CDT 09/13/2023 9:30 PM CDT Doctor Unknown LAB BILL ONLY [facility] [address] [place] [address], * PATH TISSUE EXAM (09/13/2023 11:00 AM CDT) Case Report Pathology Report ?Case: [id number] ? Authorizing Provider: ??Unknown, Doctor ?Collected: ? 09/13/2023 1100 ? Ordering Location: ? [facility] ?Received: ?09/14/2023 1033 ? Pathologist: ? Anson Hale MD ? Specimen: ?Right foot ? 09/16/2023 7:47 AM T [employer] LABORATORY-C ENTRAL LABORATORY Final Diagnosis A) FOOT, RIGHT, BIOPSY: 1. Bone with acute and chronic osteomyelitis 09/16/2023 7:47 AM [facility] Comment The specific bone that was biopsied is not provided. 09/16/2023 7:47 AM [facility] Clinical Information Right foot, assess for osteomyelitis. 09/16/2023 7:47 AM [facility] [facility] Gross Description A) Received in formalin, labeled with the patient's name and date of , is a 1.8 x 0.5 x 0.2 cm aggregate of suresh-pink soft tissue fragments admixed with pale-suresh bone. ??The specimen is submitted entirely, in toto in 1 cassette. [facility] 09/14/2023 ?? 09/16/2023 7:47 AM [facility] ENTRAL LABORATORY Microscopic Description The final diagnosis is based on microscopic examination of appropriate sections of all specimens. 09/16/2023 7:47 AM CDT [facility] LABORATORY-C ENTRAL LABORATORY Additional Information Interpreted at [facility] Laboratory - [address], [place] [address] 09/16/2023 7:47 AM CDT [facility] ENTRAL LAB[facility]AT[facility] Other (Right foot) 09/13/2023 11:00 AM CDT 09/14/2023 10:33 AM CDT Doctor Unknown PATHOLOGY/CYTOLOGY [facility]-CENTRAL LABORATORY [address] [place] [address], * COLONOSCOPY (05/12/2022 8:51 AM MACHINE DYER) 05/12/2022 8:51 AM MACHINE DYER Narrative Transcriptions Lukas West MD - 05/12/2022 9:03 AM [facility] Patient Name: Onesimo Walton Procedure Date: 05/12/2022 Gender: Male Date of : 1950 Admit Type: Inpatient Procedure: Colonoscopy Proceduralist: Lukas West MD [facility] Indications/Pre-Op Diagnosis: Anemia. Bacteremia Medications: Monitored Anesthesia Care Procedure Description: The patient had risks, benefits and alternatives explained to andgave informed consent. The patient had a stable cardiopulmonary status and judged an adequate candidate for conscious sedation. The [facility]-[id number] endoscope was passed through the anus and [...] is per the primary team. Call [facility] back if any questions orconcerns. Lukas West MD 05/12/2022 9:03:39 AM This report has been signed electronically. Note Initiated On: 05/12/2022 8:51 AM Lukas West MD PROCEDURE ORD * (ABNORMAL) LIPID PANEL W REFLEX MEASURED LDL (02/16/2016 8:59 AM CDT) CHOLESTEROL,TOTAL 178 100 - 199 mg/dL 02/16/2016 11:02 AM [facility] TRIGLYCERIDES 232(H) <150 mg/dL 02/16/2016 11:02 AM [facility] HDL CHOLESTEROL 31(L) >40 mg/dL 02/16/2016 11:02 AM [facility] NON-HDL CHOLESTEROL 147(H) <145 mg/dl 02/16/2016 11:02 AM [facility] CHOL/HDL RATIO 5.74(H) <4.50 02/16/2016 11:02 AM [facility] LDL CHOLESTEROL 101 <=130 mg/dL 02/16/2016 11:02 AM CDT [facility] PATIENT STATUS FASTING 02/16/2016 11:02 AM CDT [facility] Blood BLOOD SPECIMEN / Unknown Venipuncture / Unknown 02/16/2016 8:59 AM CDT 02/16/2016 8:59 AM CDT Rudy Riddle MD CHEMISTRY [facility] [address] [place] [address] [facility] [address] [place] [address], [place] [phone] from Last 3 Months or Most Recently [...] Preferences, Provider to review later Care Teams Deputy Administrator Relationship Specialty Start Date End Date Rudy Riddle MD [address] [place] [address] PCP - General Family Practice 05/25/22 Casa Lucia MD [address] [place] [address] Ophthalmology Ophthalmology Surgery 12/22/11 Rudy Riddle MD [address] [facility] [place] [address] Family Practice 05/07/22
--- OUTSIDE RECORDS SUMMARY | 2023-11-01 10:34 | XMS_ITS | Clinical Summary ---
Author Organization [facility] Address [address] [place] [address] Care Team Providers Care Shift Coordinator Name Role Phone Elsewhere, Pcp Primary Care Provider Unavailabl e Source Comments Patient records contain information from all sites at [facility]. For routine questions regarding patient records, call [phone] during business hours, M-F 8:00 AM - 5:00 PM Central Time. Record requests for emergency care only can be directed to [phone] at any time.[facility] Allergies Active Allergy Reactions Criticality Noted Date Comments Gabapentin Other (see comments) Medium 08/04/2020 Dizzy, memory issue Morphine Itching,Rash Medium 02/14/2012 itchy Pregabalin Anaphylaxis High 02/16/2017 swell Kzaoxyo-Wxv-Bqo Reductase Inhibitors Myalgia Low 02/13/2014 Medications Medication [...] TAKE ONE CAPSULE BY MOUTH EVERY DAY ROD PLACER 01/14/2022 Active allopurinoL (ZYLOPRIM) 100 mg tablet [...] 04/21/2018 Restless Leg Syndrome 01/12/2018 Atherosclerosis Of [place] Ar teries Of Extremities With Intermittent Claudication Right Leg 08/08/2017 Hyperlipidemia 07/22/2017 Ulcer Leg Left 04/19/2017 Ulcer Toe Left 04/19/2017 Atherosclerosis Of [place] Ar teries Of Left Leg With Ulceration Of Unspecified Site 04/19/2017 Peripheral Arterial Disease 02/16/2017 Hypertension NOS 02/16/2017 Hypertension And Chronic Kidney Disease Stage 4 09/23/2016 Overview: Hypertension (HTN) And CKD Stage 1-4 [facility]ci Use Of Insulin Active 09/23/2016 Overview: Battery Container Inspector Use Of Insulin Active Depression Major Recurrent Moderate 06/22/2016 Overview: Depression Major Recurrent Moderate Diabetes Mellitus Type 2 Wit h Other Circulatory Complication 06/22/2016 Overview: DM2 Peripheral Neuropathy Uncontrolled Encounters Date Type Department Care Team Description 09/13/2023 Documentation Division of Nephrology and Hypertension in [place], [place] [address] [place] [address] Haseeb Menon Jr., D.O. 09/13/2023 Orders Only Division of Nephrology and Hypertension in [place], [place] [address] [place] [address] Haseeb Menon Jr., D.O. Atherosclerosis Of [place] Arteries Of Extremities With Intermittent Claudication Right Leg (HCC) (Primary Dx); Diabetes Mellitus Type 2 With Other Circulatory Complication (HCC); Anemia Of Chronic Renal Disease; Sleep Apnea 09/09/2023 Documentation Division of Nephrology and Hypertension in [place], [place] [address] [place] [address] Haseeb eMnon Jr., D.O. 09/09/2023 Orders Only Division of Nephrology and Hypertension in [place], [place] [address] [place] [address] Haseeb Menon Jr., D.O. 09/09/2023 Clinical Communication Division of Nephrology and Hypertension in [place], [place] [address] [place] [address] Haseeb Menon Jr., D.O. Hypertension 08/16/2023 Documentation Division of Nephrology and Hypertension, [facility], in [place], [place] [address] [place] [address] Ishan Guardado APRN C.N.P., M.S.N. 08/16/2023 Orders Only Division of Nephrology and Hypertension, [facility], in [place], [place] [address] [place] [address] Ishan Guardado APRN C.N.P., M.S.N. 08/15/2023 Clinical Communication Division of Nephrology and Hypertension in [place], [place] [address] [place] [address] Haseeb Menon Jr., D.O. New Symptoms 08/09/2023 Documentation Division of Nephrology and Hypertension in [place], [place] [address] [place] [address] Haseeb Menon Jr., D.O. 08/09/2023 Orders Only Division of Nephrology and Hypertension in [place], [place] [address] [place] [address] Haseeb Menon Jr., D.O. from Last 3 [...] Answer Date Recorded PHQ-2 Score 0 10/20/2018 [facility] [place] of Occupat ional Health - Occupational Stress [...] Sex Assigned at Male 03/24/2021 8:13 PM STAIN APPLICATOR Gender Identity Male 08/31/2019 2:40 PM CDT [...] history exists Medical Devices Implanted Type Area Soa Architect Device Identifier Shelf Expiration Date Model / Serial / Lot Patch Vasc Bovine.08cm X 8cm - Flores [id number] Implanted:Qty: 1 on 04/04/2017 Mesh or Patch Other/Legacy - See Implant Description Synovis Description:Device Manufactu rer - Synovis. Body Location - Other. Vascular. Device Status Text - [id number]. Ocular Lens-10/29/2007 Implanted:10/28 by Nato Dougherty, JULIÁN, C.N.P., R.N. (Quantity not on file) Ocular Lens Bilateral: Eye Description:Cataract extract ion and insertion of intraocular lens 06/22/2016 09:27 - NATO DOUGHERTY REED POLISHER NARRATIVE WRITER bilateral Conversions - Default Historical Implant Device [...] 6mm X 29mm X 135cm - Flores [id number] Implanted:Qty: 1 on 03/04/2017 Vascular Graft Riviera Description:Device Manufactu rer - [employer]. Device Status Text - [id number]. Stent Vbx [id number] - Flores [id number] Implanted:Qty: 1 on 03/04/2017 Vascular Graft Other/Legacy - See Implant Description Riviera Description:Device Manufactu rer - [employer] Body Location - Other. n/a. Device Status Text - [id number]. Stent Vbx [id number] - Flores [id number] Implanted:Qty: 1 on 03/04/2017 Vascular Graft Other/Legacy - See Implant Description Riviera Description:Device Manufactu rer - [employer] Body Location - Other. n/a. Device Status Text - [id number]. Stent Zilver Ptx 6mm X 40mm - Flores [id number] Implanted:Qty: 1 on 04/04/2017 Vascular Stent Other/Legacy - See Implant Description [employer] Description:Device Manufactu rer - [employer]. Body Location - Other. Left. Device Status Text - [id number]. Stent Zilver Ptx 6mm X 60mm - Flores [id number] Implanted:Qty: 1 on 04/04/2017 Vascular Stent Other/Legacy - See Implant Description [employer] Description:Device Manufactu rer - [employer]. Body Location - Other. Left. Device Status Text - [id number]. Stent Zilver Ptx 6mm X 80mm - Flores [id number] Implanted:Qty: 1 on 08/31/2017 Vascular Stent Right: Other/Legacy - See Implant Description [employer] / [id number] / Description:Device Manufactu rer - [employer]. Body Location - Right. Device Status Text - [id number]. Stent Zilver Ptx 6mm X 40mm - Flores [id number] Implanted:Qty: 1 on 08/31/2017 Vascular Stent Right: Other/Legacy - See Implant Description [employer] / [id number] / Description:Device Manufactu rer - [employer]. Body Location - Right. Device Status Text - [id number]. Stnt Innova Otw [id number] - [id number] Implanted:Qty: 1 on 04/18/2018 by Kemar Velásquez M.B.B.S. at [facility] Vascular Stent [employer] 05/23/2020 [id number] / / [id number] [facility] Madi Otw [id number] - [id number] Implanted:Qty: 1 on 05/11/2019 by Kemar Velásquez M.B.B.S. at [facility] Vascular Stent Left: Leg [employer] 09/05/2020 [id number] / / [id number] Procedures Procedure Name Priority Date/Time Associated Diagnosis [...] Renal Disease Acidosis Metabolic Hyperchloremic Atherosclerosis Of [place] Arteries Of Extremities With Intermittent Claudication Right Leg (HCC) CT ABDOMEN PELVIS WITHOUT IV CONTRAST RAD - Routine (most inpatients and all outpatients) 05/27/2022 4:19 PM STAIN APPLICATOR LIPID PANEL, S Routine 02/10/2021 8:27 AM CDT Peripheral Arterial Disease (HCC) Diabetes Mellitus Type 2 With Other Circulatory Complication Hyperglycemic (HCC) 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) CT CHEST WITHOUT IV CONTRAST RAD - Routine (most inpatients and all outpatients) 05/07/2020 9:29 PM STAIN APPLICATOR from Last 3 Months or Most Recently [...] 9:35 AM CDT 02/17/2023 11:01 AM CDT [facility] - 02/17/2023 4:02 PM CDT Specimen Information: Specimen ID: [id number] Specimen Type: Blood Specimen Collection Start Date: 02/17/2023 ??9:35 AM Specimen Received Date: 02/17/2023 11:01 AM Specimen ID: [id number] Specimen Type: Blood Specimen Collection Start Date: 02/17/2023 ??9:35 AM Specimen Received Date: 02/17/2023 ??3:35 PM Haseeb Menon Jr., D.O. LAB BLOOD AD D-ON [facility] [address] [place] [address], [facility] OWAT [facility] in [place] [address] [place] [address] AUST [place] [facility] - [facility] [address] [place] [address] * HCV Ab Scrn w/Reflex to HCV PCR, Serum (02/17/2023 9:35 AM CDT) [facility] HCV Ab Screen, S Negative Negative 02/18/20 3:35 PM CDT MKTO Comment: Biotin has been identified by the utility engineer as a potential interfering substance. Higher concentrations of biotin may be found in multivitamins, hair/nail supplements, and workout supplements. If the result does not match clinical observations, repeat testing after patient refrains from the use of supplements for at least 12 hours. Blood (Blood, Venous) 02/17/2023 9:35 AM CDT 02/17/2023 2:20 PM CDT Narrative [facility] - 02/17/2023 3:35 PM CDT Specimen Information: Specimen ID: [id number] Specimen Type: Blood Specimen Collection Start Date: 02/17/2023 ??9:35 AM Specimen Received Date: 02/17/2023 ??2:20 PM Specimen ID: [id number] Specimen Type: Blood Specimen Collection Start Date: 02/17/2023 ??9:35 AM Specimen Received Date: 02/17/2023 ??2:16 PM Haseeb Menon Jr., D.O. LAB MICROBIO LOGY - BLOOD ORDERABLES Performing Organization Address City/[facility]/ZIP Co de Phone Number [facility] [address] [place] [address], [facility] MKTO [facility] in [place] [address] [place] [address] * (ABNORMAL) Albumin, Random, Urine (02/17/2023 9:26 AM CDT) Microalbumin 895.0 mg/L 02/17/2023 1:53 PM CDT OWAT Creatinine 42 mg/dL 02/17/2023 12:50 PM CDT OWAT Albumin/Creatinin e Ratio 2131(H) <17 mg/g 02/17/2023 1:53 PM CDT OW[facility] Urine (Urine, Voided) 02/17/2023 9:26 AM CDT 02/17/2023 11:00 AM CDT Haseeb Menon Jr., D.O. LAB URINE OR DERABLES Performing Organization Address [facility] Co de Phone Number [facility] [address] [place] [address], [facility] OWAT [facility] [place] [address] [place] [address] * (ABNORMAL) Hemoglobin A1c (11/25/2022 2:09 PM [...] LAB BLOOD AD D-ON [facility] [address] [place] [address], [place] OW[place] [facility] [place] [address] [place] [address] * (ABNORMAL) Lipid Panel (02/10/2021 8:27 AM CDT) [facility] Cholesterol, Total 102 mg/dL 2020 10:06 [...] BLOOD ADD-ON [facility] [address] [place] [address], [facility] [address] [place] [address] from Last 3 Months or Most Recently Relevant to Health Maintenance Advance Directives For more information, please contact: [phone] * Full Code (Latest Code Status on [...] Answer Comments Full Code: Discussed Care Teams Shift Coordinator Relationship Specialty Start Date End Date Elsewhere, Pcp PCP - General Family Medicine 01/29/20
--- OUTSIDE RECORDS SUMMARY | 2023-11-01 10:34 | XMS_ITS ---
Author Organization [facility] Address [address] [place] [address] Care Team Providers Care Genetic Counsellor Name Role Phone Unavailable Unavailable Unavailable Surgery Details Not on file Complications Check Surgery Details section. Procedure Estimated Blood Loss Check Surgery Details section. Procedure Findings Check Surgery Details section. Procedure Specimens Taken Check Surgery Details section.
--- OUTSIDE RECORDS SUMMARY | 2023-11-01 10:34 | XMS_ITS | Encounter Summary ---
Author Organization [facility] Address [address] [place] [address] Care Team Providers Care Paper Guillotine Operator Name Role Phone Elsewhere, Pcp Primary Care Provider Unavailabl e Reason for Visit * Reason Onset Date Comments Hypertension 09/09/2023 Encounter Details Date Type Department Care Team (Latest Contact Info) Description 09/09/2023 Clinical Communication Division of Nephrology and Hypertension in [place], [place] [address] [place] [address] Haseeb Menon Jr., D.O. [address] [place] [address] Hypertension Social History Tobacco Use Types Packs/Day [...] How often do you attend scientology or yazdanism serv ices? 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/2021 8:13 PM PHOTOVOLTAIC POWER SYSTEMS ENGINEER Gender Identity Male 08/31/2019 2:40 PM CDT Sexual Orientation Straight 08/31/2019 2: 40 PM CDT documented as of this encounter Miscellaneous Notes * Telephone Encounter - Danica Fowler - 09/09/2023 3:49 PM CDT Caller is: patient Preferred Communication Method: [phone] (mobile) Reason for call: Blood Pressure: BP [...] documented as of this encounter Care Teams Paper Guillotine Operator Relationship Specialty Start Date End Date Elsewhere, Pcp PCP - General Family Medicine 01/29/20 documented as of this encounter
--- OUTSIDE RECORDS SUMMARY | 2023-11-01 10:34 | XMS_ITS | Encounter Summary ---
Author Organization [facility] Address [address] [place] [address] Care Team Providers Care Tool And Die Assembler Name Role Phone Elsewhere, Pcp Primary Care Provider Unavailabl e Encounter Details Date Type Department Care Team (Late st Contact Info) Description 09/13/2023 Documentation Division of Nephrology and Hypertension in [place], [place] [address] [place] [address] Haseeb Menon Jr., D.O. [address] [place] [address] Social History Tobacco Use Types Packs/Day Years [...] How often do you attend yazidism or hoahaoism serv ices? 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 - 09/13/2023 9:30 AM CDT Care coordination-dialysis visit: Please see the sure scripts tab, in Care everywhere or the documents tab regarding his full dialysis notes from the [facility] Dialysis home program. Fair amount [...] documented as of this encounter Care Teams Tool And Die Assembler Relationship Specialty Start Date End Date Elsewhere, Pcp PCP - General Family Medicine 01/29/20 documented as of this encounter
--- OUTSIDE RECORDS SUMMARY | 2023-11-01 10:35 | XMS_ITS | Encounter Summary ---
Author Organization [facility] Address [address] [place] [address] Care Team Providers Care J2Ee Engineer Name Role Phone Elsewhere, Pcp Primary Care Provider Unavailabl e Encounter Details Date Type Department Care Team (Late st Contact Info) Description 08/09/2023 Orders Only Division of Nephrology and Hypertension in [place], [place] [address] [place] [address] Haseeb Menon Jr., D.O. [address] [place] [address] Social History Tobacco Use Types Packs/Day Years [...] do you attend lutheran or roman catholic serv ices? Never 03/24/2021 [...] Answer Date Recorded PHQ-2 Score 0 10/20/2018 [facility] of Occupat ional Health - Occupational Stress [...] Sex Assigned at Male 03/24/2021 8:13 PM RASPBERRY CHECKER Gender Identity Male 08/31/2019 2:40 PM CDT Sexual Orientation Straight 08/31/2019 2: 40 PM CDT documented as of this encounter Plan of Treatment Not on file documented as of this encounter Visit Diagnoses Not on filedocumented in this encounter Additional Health Concerns Assessment Noted Time PHQ-9 Depression Total Score: 3 01/04/20 18 10:38 AM CDT documented as of this encounter Care Teams J2Ee Engineer Relationship Specialty Start Date End Date Elsewhere, Pcp PCP - General Family Medicine 01/29/20 documented as of this encounter
--- OUTSIDE RECORDS SUMMARY | 2023-11-01 10:35 | XMS_ITS | Encounter Summary ---
Author Organization [facility] Address [address] [place] [address] Care Team Providers Care Oil Well Pumper Name Role Phone Elsewhere, Pcp Primary Care Provider Unavailabl e Reason for Visit * Reason Onset Date Comments New Symptoms 08/15/2023 Encounter Details Date Type Department Care Team (Latest Contact Info) Description 08/15/2023 Clinical Communication Division of Nephrology and Hypertension in [place], [place] [address] [place] [address] Haseeb Menon Jr., D.O. [address] [place] [address] New Symptoms Social History Tobacco Use Types [...] How often do you attend taoist or restoration serv ices? 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 Per his medication database, a [...] following references were used: other [facility] Pharmacist . * Telephone Encounter - Chloe Lazo - 08/15/2023 10:43 AM CDT Caller is: : Authorization YES Preferred Communication Method: [phone] Reason for call: Pt's , Siria, called [...] as of this encounter Care Teams Oil Well Pumper Relationship Specialty Start Date End Date Elsewhere, Pcp PCP - General Family Medicine 01/29/20 documented as of this encounter
--- OUTSIDE RECORDS SUMMARY | 2023-11-01 10:35 | XMS_ITS | Encounter Summary ---
Author Organization [facility] Address [address] [place] [address] Care Team Providers Care Hood Fitter Name Role Phone Elsewhere, Pcp Primary Care Provider Unavailpaola e Encounter Details Date Type Department Care Team (Late st Contact Info) Description 08/19/2016 Historical Ophthalmology [facility] Chalo Holland Jr., M.D. [address] [place] [address] Social History Tobacco Use Types Packs/Day Years Used Date Smoking Tobacco: Every Day Sex and Gender Information Value Date Recorded Sex Assigned at Male 03/24/2021 8:13 PM AUDIO PRODUCTION ENGINEER Gender Identity Male 08/31/2019 2:40 PM [...] IOL OU CDM Reports - EYEGEN Id: [id number] Status: Fnl documented in this encounter Plan of Treatment Not on file documented as of this encounter Visit Diagnoses Not on filedocumented in this encounter Additional Health Concerns Infection Onset Date Last Indicated Resolved Time COVID19 Pending 05/08/2020 05/08/2020 05/08/2020 2 :44 PM AUDIO PRODUCTION ENGINEER Assessment Noted Time PHQ-9 Depression Total Score: 7 08/17/19 17 9:01 AM CDT documented as of this encounter Care Teams Hood Fitter Relationship Specialty Start Date End Date Elsewhere, Pcp PCP - General Family Medicine 01/29/20 documented as of this encounter
--- OUTSIDE RECORDS SUMMARY | 2023-11-01 10:35 | XMS_ITS | Encounter Summary ---
Author Organization [facility] Address [address] [place] [address] Care Team Providers Care Framing And Hanging Name Role Phone Elsewhere, Pcp Primary Care Provider Unavailabl e Encounter Details Date Type Department Care Team (Late st Contact Info) Description 08/16/2023 Orders Only Division of Nephrology and Hypertension, [facility], in [place], [place] [address] [place] [address] Ishan Guardado, JULIÁN, C.N.P., M.S.N. [address] [place] [address] Social History Tobacco Use Types Packs/Day Years [...] How often do you attend moravian or jehovah's witness serv ices? Never 03/24/2021 [...] 10/20/2018 [facility] - Occupational Stress Questionnaire Answer Date Recorded [...] Sex Assigned at Male 03/24/2021 8:13 PM CONTRACT MANAGEMENT SPECIALIST Gender Identity Male 08/31/2019 2:40 PM CDT Sexual Orientation Straight 08/31/2019 2: 40 PM CDT documented as of this encounter Plan of Treatment Not on file documented as of this encounter Visit Diagnoses Not on filedocumented in this encounter Additional Health Concerns Assessment Noted Time PHQ-9 Depression Total Score: 3 01/04/20 18 10:38 AM CDT documented as of this encounter Care Teams Framing And Hanging Relationship Specialty Start Date End Date Elsewhere, Pcp PCP - General Family Medicine 01/29/20 documented as of this encounter
--- OUTSIDE RECORDS SUMMARY | 2023-11-01 10:35 | XMS_ITS | Encounter Summary ---
Author Organization [facility] Address [address] [place] [address] Care Team Providers Care Small Lot Operator Name Role Phone Elsewhere, Pcp Primary Care Provider Unavailabl e Encounter Details Date Type Department Care Team (Late st Contact Info) Description 08/09/2023 Documentation Division of Nephrology and Hypertension in [place], [place] [address] [place] [address] Haseeb Menon Jr., D.O. [address] [place] [address] Social History Tobacco Use Types Packs/Day Years [...] How often do you attend buddhism or confucianism serv ices? 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/2021 8:13 PM FINANCIAL REPRESENTATIVE Gender Identity Male 08/31/2019 2:40 PM CDT Sexual Orientation Straight 08/31/2019 2: 40 PM CDT documented as of this encounter Progress Notes * Haseeb Menon Jr., D.O. - 08/09/2023 3:25 PM CDT Care coordination-home dialysis clinic note [facility] see [facility] sure scripts and Care everywhere [...] documented as of this encounter Care Teams Small Lot Operator Relationship Specialty Start Date End Date Elsewhere, Pcp PCP - General Family Medicine 01/29/20 documented as of this encounter
== END 2023-11-01 10:32 | disposition home or self-care (01) ==
LOC: WOUND 10:31
PROVIDERS: PCP Family Medicine; Visit Provider Nurse Practitioner Family
DX: E11.621 Type 2 diabetes mellitus with foot ulcer (principal); L97.514 Non-pressure chronic ulcer of other part of right foot with necrosis of bone; E11.22 Type 2 diabetes mellitus with diabetic chronic kidney disease; N18.5 Chronic kidney disease, stage 5; Z96.41 Presence of insulin pump (external) (internal); Z99.2 Dependence on renal dialysis
CPT/HCPCS: 11042

== ENCOUNTER 2023-11-08 12:31 | Outpatient (CLI) | payer MEDICARE, BC, SELFPAY ==
--- OUTSIDE RECORDS SUMMARY | 2023-11-08 12:36 | XMS_ITS | Clinical Summary ---
Author Organization [facility] Address [place], [place] [address] Care Team Providers Care Mathematics Instructor Name Role Phone Casa Lucia MD Unavailable Unavailable Rudy Riddle MD Unavailable [phone] Rudy Riddle MD Primary Care Provider + Allergies Active Allergy Reactions Criticality Noted Date Comments Gabapentin Other - Describe In Comment Field Medium 08/04/2020 Dizzy, memory issue Dizzy, memory issue Morphine Itching 02/04/2010 After 3 days of use Pregabalin Anaphylaxis,Itching High 02/16/2017 swetesfaye jane Tbhcnch-Wvr-Xle Reductase Inhibitors Myalgia 02/13/2014 Medications Medication Sig [...] Department Care Team Description 09/13/2023 Lab Requisition [facility] [phone] Unknown, Doctor from Last 3 Months Immunizations [...] Comments Blood Pressure 162/87 07/21/2022 9:21 PM PHYSICAL SCIENCE TECHNICIAN Pulse 100 07/21/2022 9:21 PM PHYSICAL SCIENCE TECHNICIAN Temperature 37.1 ??C (98.8 ??F) 07/21/2022 8:51 PM CS T Respiratory Rate 18 07/21/2022 8:51 PM PHYSICAL SCIENCE TECHNICIAN Oxygen Saturation 96% 07/21/2022 9:21 PM PHYSICAL SCIENCE TECHNICIAN Inhaled Oxygen Concentration - - Weight 83.9 kg (185 lb) 07/21/2022 5:35 PM PHYSICAL SCIENCE TECHNICIAN Height 175.3 cm (5' 9) 07/21/2022 5:35 PM PHYSICAL SCIENCE TECHNICIAN Body Mass Index 27.32 07/21/2022 5:35 PM PHYSICAL SCIENCE TECHNICIAN Plan of Treatment Health Maintenance Due [...] age 77 05/12/203205/12, 02/04/2006 (Completed outside of [facility]) Tdap Completed 08/16/2016 Pneumococcal series for age [...] 0 AM CDT COLONOSCOPY 05/12/2022 8:51 AM PHYSICAL SCIENCE TECHNICIAN LIPID PANEL W REFLEX MEASURED LDL Routine 02/16/2016 8:59 AM CDT Hyperlipidemia, unspecified hyperlipidemia type from Last 3 Months or Most Recently Relevant to Health Maintenance Results * LAB TRACKING EVENT (09/13/2023 11:00 AM CDT) Other (Other) Client Collect / Unknown 09/13/2023 11:00 AM CDT 09/13/2023 9:30 PM CDT Doctor Unknown LAB BILL ONLY [facility] [address] [place] [address], * PATH TISSUE EXAM (09/13/2023 11:00 AM CDT) Case Report Pathology Report ?Case: [id number] ? Authorizing Provider: ??Unknown, Doctor ?Collected: ? 09/13/2023 1100 ? Ordering Location: ? [facility] ?Received: ?09/14/2023 1033 ? Pathologist: ? Anson Hale MD ? Specimen: ?Right foot ? 09/16/2023 7:47 AM T [facility]-C ENTRAL LABORATORY Final Diagnosis A) FOOT, RIGHT, BIOPSY: 1. Bone with acute and chronic osteomyelitis 09/16/2023 7:47 AM [facility] Comment The specific bone that was biopsied is not provided. 09/16/2023 7:47 AM [facility] Clinical Information Right foot, assess for osteomyelitis. 09/16/2023 7:47 AM [facility] [employer] [facility] Gross Description A) Received in formalin, labeled with the patient's name and date of , is a 1.8 x 0.5 x 0.2 cm aggregate of suresh-pink soft tissue fragments admixed with pale-suresh bone. ??The specimen is submitted entirely, in toto in 1 cassette. [facility] 09/14/2023 ?? 09/16/2023 7:47 AM [facility] Microscopic Description The final diagnosis is based on microscopic examination of appropriate sections of all specimens. 09/16/2023 7:47 AM CDT [facility] ENTRAL LABORATORY Additional Information Interpreted at [facility] Central Laboratory - [address], [place] [address] 09/16/2023 7:47 AM CDT [facility] ENTRAL LAB[facility]AT[facility] Other (Right foot) 09/13/2023 11:00 AM CDT 09/14/2023 10:33 AM CDT Doctor Unknown PATHOLOGY/CYTOLOGY [facility] [address] [place] [address], * COLONOSCOPY (05/12/2022 8:51 AM PHYSICAL SCIENCE TECHNICIAN) 05/12/2022 8:51 AM PHYSICAL SCIENCE TECHNICIAN Narrative Transcriptions Lukas West MD - 05/12/2022 9:03 AM [facility] Patient Name: Onesimo Walton Procedure Date: 05/12/2022 Gender: Male Date of : 1950 Admit Type: Inpatient Procedure: Colonoscopy Proceduralist: Lukas West MD [facility] [place] Indications/Pre-Op Diagnosis: Anemia. Bacteremia Medications: Monitored Anesthesia Care Procedure Description: The patient had risks, benefits and alternatives explained to andgave informed consent. The patient had a stable cardiopulmonary status and judged an adequate candidate for conscious sedation. The [facility][id number] endoscope was passed through the anus and [...] is per the primary team. Call [facility] back if any questions orconcerns. Lukas West MD 05/12/2022 9:03:39 AM This report has been signed electronically. Note Initiated On: 05/12/2022 8:51 AM Lukas West MD PROCEDURE ORD * (ABNORMAL) LIPID PANEL W REFLEX MEASURED LDL (02/16/2016 8:59 AM CDT) CHOLESTEROL,TOTAL 178 100 - 199 mg/dL 02/16/2016 11:02 AM [facility] TRIGLYCERIDES 232(H) <150 mg/dL 02/16/2016 11:02 AM [facility] HDL CHOLESTEROL 31(L) >40 mg/dL 02/16/2016 11:02 AM [facility] NON-HDL CHOLESTEROL 147(H) <145 mg/dl 02/16/2016 11:02 AM [facility] CHOL/HDL RATIO 5.74(H) <4.50 02/16/2016 11:02 AM [facility] LDL CHOLESTEROL 101 <=130 mg/dL 02/16/2016 11:02 AM CDT [facility] PATIENT STATUS FASTING 02/16/2016 11:02 AM CDT [facility] Blood BLOOD SPECIMEN / Unknown Venipuncture / Unknown 02/16/2016 8:59 AM CDT 02/16/2016 8:59 AM CDT Rudy Riddle MD CHEMISTRY [facility] [address] [place] [address] [facility] [address] [place] [address], [place] [phone] from Last 3 Months or Most Recently [...] Preferences, Provider to review later Care Teams Mathematics Instructor Relationship Specialty Start Date End Date Rudy Riddle MD [address] [place] [address] PCP - General Family Practice 05/25/22 Casa Lucia MD [address] [place] [address] Ophthalmology Ophthalmology Surgery 12/22/11 Rudy Riddle MD [address] [place] [address] Family Practice 05/07/22
--- OUTSIDE RECORDS SUMMARY | 2023-11-08 12:36 | XMS_ITS ---
Author Organization [facility] Address [address] [place] [address] Care Team Providers Care Lining Feller Blindstitch Name Role Phone Unavailable Unavailable Unavailable Surgery Details Not on file Complications Check Surgery Details section. Procedure Estimated Blood Loss Check Surgery Details section. Procedure Findings Check Surgery Details section. Procedure Specimens Taken Check Surgery Details section.
--- OUTSIDE RECORDS SUMMARY | 2023-11-08 12:36 | XMS_ITS | Clinical Summary ---
Author Organization [facility] Address [address] [place] [address] Care Team Providers Care Superintendent Police Name Role Phone Elsewhere, Pcp Primary Care Provider Unavailabl e Source Comments Patient records contain information from all sites at [facility]. For routine questions regarding patient records, call [phone] during business hours, M-F 8:00 AM - 5:00 PM Central Time. Record requests for emergency care only can be directed to [phone] at any time.[facility] Allergies Active Allergy Reactions Criticality Noted Date Comments Gabapentin Other (see comments) Medium 08/04/2020 Dizzy, memory issue Morphine Itching,Rash Medium 02/14/2012 itchy Pregabalin Anaphylaxis High 02/16/2017 swell Mprsond-Yhg-Fml Reductase Inhibitors Myalgia Low 02/13/2014 Medications Medication [...] TAKE ONE CAPSULE BY MOUTH EVERY DAY STAFF FORESTER 01/14/2022 Active allopurinoL (ZYLOPRIM) 100 mg tablet [...] 04/21/2018 Restless Leg Syndrome 01/12/2018 Atherosclerosis Of [place] Ar teries Of Extremities With Intermittent Claudication Right Leg 08/08/2017 Hyperlipidemia 07/22/2017 Ulcer Leg Left 04/19/2017 Ulcer Toe Left 04/19/2017 Atherosclerosis Of [place] Ar teries Of Left Leg With Ulceration Of Unspecified Site 04/19/2017 Peripheral Arterial Disease 02/16/2017 Hypertension NOS 02/16/2017 Hypertension And Chronic Kidney Disease Stage 4 09/23/2016 Overview: Hypertension (HTN) And CKD Stage 1-4 Alf Use Of Insulin Active 09/23/2016 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 09/13/2023 Orders Only Division of Nephrology and Hypertension in [place], [place] [address] [place] [address] Haseeb Menon Jr., D.O. Atherosclerosis Of [place] Arteries Of Extremities With Intermittent Claudication Right Leg (HCC) (Primary Dx); Diabetes Mellitus Type 2 With Other Circulatory Complication (HCC); Anemia Of Chronic Renal Disease; Sleep Apnea 09/09/2023 Documentation Division of Nephrology and Hypertension in [place], [place] [address] [place] [address] Haseeb Menon Jr., D.O. 09/09/2023 Orders Only Division of Nephrology and Hypertension in [place], [place] [address] [place] [address] Haseeb Menon Jr., D.O. 09/09/2023 Clinical Communication Division of Nephrology and Hypertension in [place], [place] [address] [place] [address] Haseeb Menon Jr., D.O. Hypertension 08/16/2023 Documentation Division of Nephrology and Hypertension, [facility], in [place], [place] [address] [place] [address] Ishan Guardado APRN C.N.P., M.S.N. 08/16/2023 Orders Only Division of Nephrology and Hypertension, [facility], in [place], [place] [address] [place] [address] Ishan Guardado APRN C.N.P., M.S.N. 08/15/2023 Clinical Communication Division of Nephrology and Hypertension in [place], [place] [address] [place] [address] Haseeb Menon Jr., D.O. New Symptoms 08/09/2023 Documentation Division of Nephrology and Hypertension in [place], [place] [address] [place] [address] Haseeb Menon Jr., D.O. 08/09/2023 Orders Only Division of Nephrology and Hypertension in [place], [place] [address] [place] [address] Haseeb Menon Jr., D.O. from Last 3 [...] How often do you attend presybeterian or hindu serv ices? Never 03/24/2021 Do [...] 0 10/20/2018 [facility] Weir of Occupat ional Health - Occupational Stress [...] Sex Assigned at Male 03/24/2021 8:13 PM PICKER MACHINE OPERATOR Gender Identity Male 08/31/2019 2:40 [...] history exists Medical Devices Implanted Type Area Hub Cutter Apprentice Device Identifier Shelf Expiration Date Model / Serial / Lot Patch Vasc Bovine.08cm X 8cm - Flores [id number] Implanted:Qty: 1 on 04/04/2017 Mesh or Patch Other/Legacy - See Implant Description Synovis Description:Device Manufactu rer - Synovis. Body Location - Other. Vascular. Device Status Text - [id number]. Ocular Lens-10/29/2007 Implanted:10/28 by Nato Dougherty, JULIÁN, C.N.P., R.N. (Quantity not on file) Ocular Lens Bilateral: Eye Description:Cataract extract ion and insertion of intraocular lens 06/22/2016 09:27 - [employer] DOUGHERTY CAR RECORD CLERK DEPORTATION EXAMINER bilateral Conversions - Default Historical Implant Device [...] 6mm X 29mm X 135cm - Flores [id number] Implanted:Qty: 1 on 03/04/2017 Vascular Graft Vadito Description:Device Manufactu rer - [employer]. Device Status Text - [id number]. Stent Vbx [id number] - Flores [id number] Implanted:Qty: 1 on 03/04/2017 Vascular Graft Other/Legacy - See Implant Description Vadito Description:Device Manufactu rer - [employer] Body Location - Other. n/a. Device Status Text - [id number]. Stent Vbx [id number] - Flores [id number] Implanted:Qty: 1 on 03/04/2017 Vascular Graft Other/Legacy - See Implant Description Vadito Description:Device Manufactu rer - [employer] Body Location - Other. n/a. Device Status Text - [id number]. Stent Zilver Ptx 6mm X 40mm - Flores [id number] Implanted:Qty: 1 on 04/04/2017 Vascular Stent Other/Legacy - See Implant Description [employer]. Description:Device Manufactu rer - [employer]. Body Location - Other. Left. Device Status Text - [id number]. Stent Zilver Ptx 6mm X 60mm - Flores [id number] Implanted:Qty: 1 on 04/04/2017 Vascular Stent Other/Legacy - See Implant Description [employer] Description:Device Manufactu rer - [employer]. Body Location - Other. Left. Device Status Text - [id number]. Stent Zilver Ptx 6mm X 80mm - Flores [id number] Implanted:Qty: 1 on 08/31/2017 Vascular Stent Right: Other/Legacy - See Implant Description [employer] / [id number] / Description:Device Manufactu rer - [employer]. Body Location - Right. Device Status Text - [id number]. Stent Zilver Ptx 6mm X 40mm - Flores [id number] Implanted:Qty: 1 on 08/31/2017 Vascular Stent Right: Other/Legacy - See Implant Description [employer] / [id number] / Description:Device Manufactu rer - [employer]. Body Location - Right. Device Status Text - [id number]. Stnt Innova Otw [id number] - [id number] Implanted:Qty: 1 on 04/18/2018 by Kemar Velásquez M.B.B.S. at [facility] Vascular Stent [employer] 05/23/2020 [id number] / / [id number] [facility] Madi Otw [id number] - [id number] Implanted:Qty: 1 on 05/11/2019 by Kemar Velásquez M.B.B.S. at [facility] Vascular Stent Left: Leg [employer] 09/05/2020 [id number] / / [id number] Procedures Procedure Name Priority Date/Time Associated Diagnosis [...] Renal Disease Acidosis Metabolic Hyperchloremic Atherosclerosis Of [place] Arteries Of Extremities With Intermittent Claudication Right Leg (HCC) CT ABDOMEN PELVIS WITHOUT IV CONTRAST RAD - Routine (most inpatients and all outpatients) 05/27/2022 4:19 PM PICKER MACHINE OPERATOR LIPID PANEL, S Routine 02/10/2021 8:27 AM CDT Peripheral Arterial Disease (HCC) Diabetes Mellitus Type 2 With Other Circulatory Complication Hyperglycemic (HCC) 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) CT CHEST WITHOUT IV CONTRAST RAD - Routine (most inpatients and all outpatients) 05/07/2020 9:29 PM PICKER MACHINE OPERATOR from Last 3 Months or Most [...] 9:35 AM CDT 02/17/2023 11:01 AM CDT [facility] - 02/17/2023 4:02 PM CDT Specimen Information: Specimen ID: [id number] Specimen Type: Blood Specimen Collection Start Date: 02/17/2023 ??9:35 AM Specimen Received Date: 02/17/2023 11:01 AM Specimen ID: [id number] Specimen Type: Blood Specimen Collection Start Date: 02/17/2023 ??9:35 AM Specimen Received Date: 02/17/2023 ??3:35 PM Haseeb Menon Jr., D.O. LAB BLOOD AD D-ON [facility] [address] [place] [address], [facility] [place] [address] [place] [address] AUST [facility] [address] [place] [address] * HCV Ab Scrn w/Reflex to HCV PCR, Serum (02/17/2023 9:35 AM CDT) [facility] HCV Ab Screen, S Negative Negative 02/18/20 3:35 PM CDT MKTO Comment: Biotin has been identified by the health center manager as a potential interfering substance. Higher concentrations [...] 3:35 PM CDT Specimen Information: Specimen ID: [id number] Specimen Type: Blood Specimen Collection Start Date: 02/17/2023 ??9:35 AM Specimen Received Date: 02/17/2023 ??2:20 PM Specimen ID: [id number] Specimen Type: Blood Specimen Collection Start Date: 02/17/2023 ??9:35 AM Specimen Received Date: 02/17/2023 ??2:16 PM Haseeb Menon Jr., D.O. LAB MICROBIO LOGY - BLOOD ORDERABLES Performing Organization Address City/[facility]/ZIP Co de Phone Number [facility] [address] [place] [address], [facility] MKTO [facility] [place] [address] [place] [address] * (ABNORMAL) Albumin, Random, Urine (02/17/2023 9:26 AM CDT) Microalbumin 895.0 mg/L 02/17/2023 1:53 PM CDT [facility] Creatinine 42 mg/dL 02/17/2023 12:50 PM CDT [facility] Albumin/Creatinin e Ratio 2131(H) <17 mg/g 02/17/2023 1:53 PM CDT [facility] Urine (Urine, Voided) 02/17/2023 9:26 AM CDT 02/17/2023 11:00 AM CDT Haseeb Menon Jr., D.O. LAB URINE OR DERABLES Performing Organization Address [facility] Co de Phone Number [facility] [address] [place] [address], [facility] [place] [address] [place] [address] * (ABNORMAL) Hemoglobin A1c (11/25/2022 2:09 PM [...] Menon Jr., D.O. LAB BLOOD AD D-ON [facility] [address] [place] [address], [place] [facility] [place] [address] [place] [address] * (ABNORMAL) Lipid Panel (02/10/2021 8:27 AM CDT) [facility] Cholesterol, Total 102 mg/dL 2020 10:06 AM [...] AM CDT Kemar Reyes LAB BLOOD ADD-ON [facility] [address] [place] [address], [facility] [address] [place] [address] from Last 3 Months or Most Recently Relevant to Health Maintenance Advance Directives For more information, please contact: [phone] * Full Code (Latest Code Status on [...] Answer Comments Full Code: Discussed Care Teams Superintendent Police Relationship Specialty Start Date End Date Elsewhere, Pcp PCP - General Family Medicine 01/29/20
--- OUTSIDE RECORDS SUMMARY | 2023-11-08 12:36 | XMS_ITS | Encounter Summary ---
Author Organization [facility] Address [address] [place] [address] Care Team Providers Care Delinquent Notice Machine Operator Name Role Phone Elsewhere, Pcp Primary Care Provider Unavailabl e Encounter Details Date Type Department Care Team (Late st Contact Info) Description 09/13/2023 Documentation Division of Nephrology and Hypertension in [place], [place] [address] [place] [address] Haseeb Menon Jr., D.O. [address] [place] [address] Social History Tobacco Use Types Packs/Day Years [...] often do you attend shinto or jainism serv ices? Never 03/24/2021 Do [...] your living situation today? I have a [facility] place to live 10/26/2022 Education Answer Date Recorded What is the highest level of school you have completed or the highest degree you have received? 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/2021 8:13 PM MANAGER COMMISSION Gender Identity Male 08/31/2019 2:40 PM CDT Sexual Orientation Straight 08/31/2019 2: 40 PM CDT documented as of this encounter Progress Notes * Haseeb Menon Jr., D.O. - 09/13/2023 9:30 AM CDT Care coordination-dialysis visit: Please see the sure scripts tab, in Care everywhere or the documents tab regarding his full dialysis notes from the [facility] Dialysis home program. Fair amount of [...] documented as of this encounter Care Teams Delinquent Notice Machine Operator Relationship Specialty Start Date End Date Elsewhere, Pcp PCP - General Family Medicine 01/29/20 documented as of this encounter
--- OUTSIDE RECORDS SUMMARY | 2023-11-08 12:36 | XMS_ITS | Encounter Summary ---
Author Organization [facility] Address [address] [place] [address] Care Team Providers Care Cigar Machine Feeder Name Role Phone Elsewhere, Pcp Primary Care Provider Unavailabl e Reason for Referral * Outpatient (Routine) - Authorized Specialty Diagnoses / Procedures Referred By Robi hong Referred To Contact Sleep Medicine Diagnoses Atherosclerosis Of [place] Arteries Of Extremities With Intermittent Claudication Right Leg (HCC) Diabetes Mellitus Type 2 With Other Circulatory Complication (HCC) Anemia Of Chronic Renal Disease Sleep Apnea Haseeb Menon Jr., D.OFei [address] [place] [address] [facility] Referral ID Status Reason Start Date Expiration Date Visits Requested Visits Authorized [id number] Authorized Specialty Services Required 09/13/2023 03/14/2025 1 1 Encounter Details Date Type Department Care Team (Latest Contact Info) Description 09/13/2023 Orders Only Division of Nephrology and Hypertension in [place], [place] [address] [place] [address] Haseeb Menon Jr., D.O. [address] [place] [address] Atherosclerosis Of [place] Arteries Of Extremities With Intermittent Claudication Right [...] How often do you attend pentecostalism or judaism serv ices? Never 03/24/2021 Do [...] Score 0 10/20/2018 [facility] - Occupational [...] Sex Assigned at Male 03/24/2021 8:13 PM REHAB THERAPIST Gender Identity Male 08/31/2019 2:40 PM CDT Sexual Orientation Straight 08/31/2019 2: 40 PM CDT documented as of this encounter Plan of Treatment Scheduled Referrals Name Type Priority Associated Diagnoses Orde r Schedule Sleep Medicine - General consult (clinic) Outpatient Referral Routine Atherosclerosis Of [place] Arteries Of Extremities With Intermittent Claudication Right Leg (HCC) Diabetes Mellitus Type 2 With Other Circulatory Complication (HCC) Anemia Of Chronic Renal Disease Sleep Apnea Expected: 09/13/2023, Expires: 12/12/2024 documented as of this encounter Visit Diagnoses Diagnosis Atherosclerosis Of [place] Arteries Of Extremities With Intermittent Claudication Right Leg (HCC)- Primary Diabetes Mellitus Type 2 With Other Circulatory Complication (HCC) Anemia Of Chronic Renal Disease Sleep Apnea documented in this encounter Additional Health Concerns Assessment Noted Time PHQ-9 Depression Total Score: 3 01/04/20 18 10:38 AM CDT documented as of this encounter Care Teams Cigar Machine Feeder Relationship Specialty Start Date End Date Elsewhere, Pcp PCP - General Family Medicine 01/29/20 documented as of this encounter
--- OUTSIDE RECORDS SUMMARY | 2023-11-08 12:36 | XMS_ITS | Continuity of Care Document ---
Author Organization [facility] Address [address] [place] [address] Phone Care Team Providers Care Printed Circuit Board Pcb Draftsman Name Role Phone Dot Warner Unavailable Unavailable Medications Medication Instructions Dosage Effective Dates (start - stop) Status Comments AMPICILLIN-SULBACTAM (unknown strength) Not Available - Active MINOCYCLINE HCL (unknown strength) Not Available - Active Procedures Procedure Date Office/Outpatient Visit,Est, Mod 2022 OFFICE/OUTPATIENT VISIT EST Phone Office/Outpatient Visit,Est, Mod 2022 Followup Hospital Care, [facility] 2021 Advance Directives Directive Yes / No Effective Date File Name No Information Encounters Encounter Description Practice Location Reason(s) For Visit Diagnoses Date Provider Providers Copied on Encounter [facility], [address], [place], [place], [id number] , [place] tel: [phone] [facility] - [facility] No Information 3 Kindra Chris. [facility] [place], [address] [place] [address] [address], [place], [address], [place]. tel: [phone] Office/Outpa tient Visit,Est, Mod [facility], [address], [place], [place], [id number] , [place] tel: [phone] [facility] - [facility] [place] Spinal stenosis, lumbar region with neurogenic claudication 3 Camille Bob. [facility] [place], [address] [place] [address], [address], [place], [address], [place]. tel: [phone] Referring Provider: Lisbeth Thomas, [facility] [address], [address], [place], [address]. [phone] OFFICE/OUTPA TIENT VISIT EST Phone [facility], [address], [place], [place], [id number] , [place] [phone] [facility] - [place] No Information 3 Obrien Lisbeth. [facility], [address], [address], [place], [address], [place]. [phone] Referring Provider: Lisbeth Thomas, [facility] [address], [address], [place], [address]. [phone] Office/Outpa tient Visit,Est, Mod [facility], [address], [place], [place], [id number] , [place] [phone] [facility] Low back pain, unspecifiedOther specified soft tissue disorders 3 Obrien Lisbeth. [facility] [place], [address], [address], [place], [address], [place]. [phone] Referring Provider: Lisbeth Thomas, [facility] [place] [address], [address], [place], [address]. [phone] Followup Hospital Care, Moderate [facility], [address], [place], [place], [id number] , [place] [phone] [facility] No Information 2 Dhaval Velez. [facility], [address], [address], [place], [address], [place]. [phone] Referring Provider: Rudy Riddle, [facility] [address], [address]. tel:[phone] Family History Family Member Type Diagnosis Age At Onset No Information Payers Payer name Insurance type Covered green party ID Authorjaimealivia durant([place]) [place] [id number] Medicare [facility] [id number] Social History Type Description Quantity Date [...]
--- OUTSIDE RECORDS SUMMARY | 2023-11-08 12:36 | XMS_ITS | Referral Summary ---
Author Organization [facility] Address [address] [place] [address] Care Team Providers Care Student Activities Director Name Role Phone Elsewhere, Pcp Primary Care Provider Unavailabl e Source Comments Patient records contain information from all sites at [facility]. For routine questions regarding patient records, call [phone] during business hours, M-F 8:00 AM - 5:00 PM Central Time. Record requests for emergency care only can be directed to [phone] at any time.[facility] Encounters Date Type Department Care Team Description 09/13/2023 Documentation Division of Nephrology and Hypertension in [place], [place] [address] [place] [address] Haseeb Menon Jr., D.O. 09/13/2023 Orders Only Division of Nephrology and Hypertension in [place], [place] [address] [place] [address] Haseeb Menon Jr., D.O. Atherosclerosis Of [place] Arteries Of Extremities With Intermittent Claudication Right Leg (HCC) (Primary Dx); Diabetes Mellitus Type 2 With Other Circulatory Complication (HCC); Anemia Of Chronic Renal Disease; Sleep Apnea 09/09/2023 Documentation Division of Nephrology and Hypertension in [place], [place] [address] [place] [address] Haseeb Menon Jr., D.O. 09/09/2023 Orders Only Division of Nephrology and Hypertension in [place], [place] [address] [place] [address] Haseeb Menon Jr. D.O. 09/09/2023 Clinical Communication Division of Nephrology and Hypertension in [place], [place] [address] [place] [address] Haseeb Menon Jr., EstivenO. Hypertension 08/16/2023 Documentation Division of Nephrology and Hypertension, [facility], in [place], [place] [address] [place] [address] Ishan Guardado APRN, C.N.Kinza., M.S.N. 08/16/2023 Orders Only Division of Nephrology and Hypertension, [facility], in [place], [place] [address] [place] [address] Ishan Guardado APRN, C.N.Kinza., M.S.N. 08/15/2023 Clinical Communication Division of Nephrology and Hypertension in [place], [place] [address] [place] [address] Haseeb Menon Jr., Brittnee. New Symptoms 08/09/2023 Documentation Division of Nephrology and Hypertension in [place], [place] [address] [place] [address] Haseeb Menon Jr., D.O. 08/09/2023 Orders Only Division of Nephrology and Hypertension in [place], [place] [address] [place] [address] Haseeb Menon Jr., D.O. from Last 3 Months Allergies Active Allergy Reactions Criticality Noted Date Comments Gabapentin Other (see comments) Medium 08/04/2020 Dizzy, memory issue Morphine Itching,Rash Medium 02/14/2012 itchy Pregabalin Anaphylaxis High 02/16/2017 swell Hkvqhxq-Oeq-Xkj Reductase Inhibitors Myalgia Low 02/13/2014 Medications Medication [...] ONE CAPSULE BY MOUTH EVERY DAY HALF-WAY 01/14/2022 Active allopurinoL (ZYLOPRIM) 100 mg tablet [...] 04/21/2018 Restless Leg Syndrome 01/12/2018 Atherosclerosis Of [place] Of Extremities With Intermittent Claudication Right Leg 08/08/2017 Hyperlipidemia 07/22/2017 Ulcer Leg Left 04/19/2017 Ulcer Toe Left 04/19/2017 Atherosclerosis Of [place] Of Left Leg With Ulceration [...] How often do you attend mormon or denominational serv ices? 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/2021 8:13 PM ELECTRICAL TRYOUT PERSON Gender Identity Male 08/31/2019 2:40 PM CDT [...] on file Medical Devices Implanted Type Area Drill Press Operator Helper Device Identifier Shelf Expiration Date Model / Serial / Lot Patch Vasc Bovine.08cm X 8cm - Flores [id number] Implanted:Qty: 1 on 04/04/2017 Mesh or Patch Other/Legacy - See Implant Description Synovis Description:Device Manufactu rer - Synovis. Body Location - Other. Vascular. Device Status Text - [id number]. Ocular Lens-10/29/2007 Implanted:10/28 by Nato Dougherty APRN, C.N.P., R.N. (Quantity not on file) Ocular Lens Bilateral: Eye Description:Cataract extract ion and insertion of intraocular lens 06/22/2016 09:27 - NATO DOUGHERTY SPEEDER OPERATOR FUSING FURNACE LOADER bilateral Conversions - Default Historical Implant Device [...] 6mm X 29mm X 135cm - Flores [id number] Implanted:Qty: 1 on 03/04/2017 Vascular Graft Brainard Description:Device Manufactu rer - [employer]. Device Status Text - [id number]. Stent Vbx [id number] - Flores [id number] Implanted:Qty: 1 on 03/04/2017 Vascular Graft Other/Legacy - See Implant Description Brainard Description:Device Manufactu rer - [employer] Body Location - Other. n/a. Device Status Text - [id number]. Stent Vbx [id number] - Flores [id number] Implanted:Qty: 1 on 03/04/2017 Vascular Graft Other/Legacy - See Implant Description Brainard Description:Device Manufactu rer - [employer] Body Location - Other. n/a. Device Status Text - [id number]. Stent Zilver Ptx 6mm X 40mm - Flores [id number] Implanted:Qty: 1 on 04/04/2017 Vascular Stent Other/Legacy - See Implant Description [employer] Description:Device Manufactu rer - Nitch. Body Location - Other. Left. Device Status Text - [id number]. Stent Zilver Ptx 6mm X 60mm - Flores [id number] Implanted:Qty: 1 on 04/04/2017 Vascular Stent Other/Legacy - See Implant Description [employer] Description:Device Manufactu rer - [employer]. Body Location - Other. Left. Device Status Text - [id number]. Stent Zilver Ptx 6mm X 80mm - Flores [id number] Implanted:Qty: 1 on 08/31/2017 Vascular Stent Right: Other/Legacy - See Implant Description [employer] / [id number] / Description:Device Manufactu rer - [employer]. Body Location - Right. Device Status Text - [id number]. Stent Zilver Ptx 6mm X 40mm - Flores [id number] Implanted:Qty: 1 on 08/31/2017 Vascular Stent Right: Other/Legacy - See Implant Description [employer] / [id number] / Description:Device Manufactu [place] - [employer]. Body Location - Right. Device Status Text - [id number]. Stnt Innova Otw [id number] - [id number] Implanted:Qty: 1 on 04/18/2018 by Kemar Velásquez M.B.B.S. at [facility] Vascular Stent [place] [employer] 05/23/2020 [id number] / / [id number] Stnt Innova Otw [id number] - [id number] Implanted:Qty: 1 on 05/11/2019 by Kemar Velásquez M.B.B.S. at [facility] Vascular Stent Left: Leg [employer] [place] [employer] 09/05/2020 [id number] / / [id number] Procedures Procedure Name Priority Date/Time Associated Diagnosis [...] Renal Disease Acidosis Metabolic Hyperchloremic Atherosclerosis Of [place] Arteries Of Extremities With Intermittent Claudication Right Leg (HCC) CT ABDOMEN PELVIS WITHOUT IV CONTRAST RAD - Routine (most inpatients and all outpatients) 05/27/2022 4:19 PM ELECTRICAL TRYOUT PERSON LIPID PANEL, S Routine 02/10/2021 8:27 AM CDT Peripheral Arterial Disease (HCC) Diabetes Mellitus Type 2 With Other Circulatory Complication Hyperglycemic (HCC) 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) CT CHEST WITHOUT IV CONTRAST RAD - Routine (most inpatients and all outpatients) 05/07/2020 9:29 PM ELECTRICAL TRYOUT PERSON from Last 3 Months or Most Recently [...] AM CDT 02/17/2023 11:01 AM CDT Narrative [facility] - 02/17/2023 4:02 PM CDT Specimen Information: Specimen ID: [id number] Specimen Type: Blood Specimen Collection Start Date: 02/17/2023 ??9:35 AM Specimen Received Date: 02/17/2023 11:01 AM Specimen ID: [id number] Specimen Type: Blood Specimen Collection Start Date: 02/17/2023 ??9:35 AM Specimen Received Date: 02/17/2023 ??3:35 PM Haseeb Menon Jr., D.O. LAB BLOOD AD D-ON [facility] [address] [place] [address], [facility] in [place] [address] [place] [address] AUST [facility] - [facility] [address] [place] [address] * HCV Ab Scrn w/Reflex to HCV PCR, Serum (02/17/2023 9:35 AM CDT) HCV Ab Screen, S Negative Negative 02/18/20 3:35 PM CDT [facility] Comment: Biotin has been identified by the precision mechanical instrument maker as a potential interfering substance. Higher concentrations of biotin may be found in multivitamins, hair/nail supplements, and workout supplements. If the result does not match clinical observations, repeat testing after patient refrains from the use of supplements for at least 12 hours. Blood (Blood, Venous) 02/17/2023 9:35 AM CDT 02/17/2023 2:20 PM CDT Narrative [facility] - 02/17/2023 3:35 PM CDT Specimen Information: Specimen ID: [id number] Specimen Type: Blood Specimen Collection Start Date: 02/17/2023 ??9:35 AM Specimen Received Date: 02/17/2023 ??2:20 PM Specimen ID: [id number] Specimen Type: Blood Specimen Collection Start Date: 02/17/2023 ??9:35 AM Specimen Received Date: 02/17/2023 ??2:16 PM Haseeb Menon Jr., D.O. LAB MICROBIO LOGY - BLOOD ORDERABLES [facility] [address] [place] [address], [facility] [place] [address] * (ABNORMAL) Albumin, Random, Urine (02/17/2023 9:26 AM CDT) Microalbumin 895.0 mg/L 02/17/2023 1:53 PM CDT [facility] Creatinine 42 mg/dL 02/17/2023 12:50 PM CDT [facility] Albumin/Creatinin e Ratio 2131(H) <17 mg/g 02/17/2023 1:53 PM CDT [facility] Urine (Urine, Voided) 02/17/2023 9:26 AM CDT 02/17/2023 11:00 AM CDT Haseeb Menon Jr., D.O. LAB URINE OR DERABLES Performing Organization Address [facility] Co de Phone Number [facility] [address] [place] [address], [facility] [place] [address] [place] [address] * (ABNORMAL) Hemoglobin A1c (11/25/2022 2:09 PM [...] LAB BLOOD AD D-ON Performing Organization Address [facility] Co de Phone Number [facility] [address] [place] [address], [facility] in [place] [address] [place] [address] * (ABNORMAL) Lipid Panel (02/10/2021 8:27 AM [...] AM CDT Kemar Reyes LAB BLOOD ADD-ON [facility] [address] [place] [address], [facility] [address] [place] [address] from Last 3 Months or Most Recently Relevant to Health Maintenance Advance Directives For more information, please contact: [phone] * Full Code (Latest Code Status on [...] Answer Comments Full Code: Discussed Care Teams Student Activities Director Relationship Specialty Start Date End Date Elsewhere, Pcp PCP - General Family Medicine 01/29/20
--- OUTSIDE RECORDS SUMMARY | 2023-11-08 12:37 | XMS_ITS | Encounter Summary ---
Author Organization [facility] Address [address] [place] [address] Care Team Providers Care Spinning Operator Name Role Phone Elsewhere, Pcp Primary Care Provider Unavailpaola e Encounter Details Date Type Department Care Team (Late st Contact Info) Description 08/19/2016 Historical Ophthalmology [facility] Chalo Holland Jr., M.D. [address] [place] [address] Social History Tobacco Use Types Packs/Day Years Used Date Smoking Tobacco: Every Day Sex and Gender Information Value Date Recorded Sex Assigned at Male 03/24/2021 8:13 PM PROSTHETIC DENTIST Gender Identity Male 08/31/2019 2:40 PM CDT [...] IOL OU CDM Reports - EYEGEN Id: [id number] Status: Fnl documented in this encounter Plan of Treatment Not on file documented as of this encounter Visit Diagnoses Not on filedocumented in this encounter Additional Health Concerns Infection Onset Date Last Indicated Resolved Time COVID19 Pending 05/08/2020 05/08/2020 05/08/2020 2 :44 PM PROSTHETIC DENTIST Assessment Noted Time PHQ-9 Depression Total Score: 7 08/17/19 17 9:01 AM CDT documented as of this encounter Care Teams Spinning Operator Relationship Specialty Start Date End Date Elsewhere, Pcp PCP - General Family Medicine 01/29/20 documented as of this encounter
--- OUTSIDE RECORDS SUMMARY | 2023-11-08 12:37 | XMS_ITS | Encounter Summary ---
Author Organization [facility] Address [address] [place] [address] Care Team Providers Care Ocularist Name Role Phone Elsewhere, Pcp Primary Care Provider Unavailabl e Encounter Details Date Type Department Care Team (Late st Contact Info) Description 08/09/2023 Orders Only Division of Nephrology and Hypertension in [place], [place] [address] [place] [address] Haseeb Menon Jr., D.O. [address] [place] [address] Social History Tobacco Use Types Packs/Day Years [...] How often do you attend catholic or shinto serv ices? 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/2021 8:13 PM SUMMER LAW ASSOCIATE Gender Identity Male 08/31/2019 2:40 PM CDT Sexual Orientation Straight 08/31/2019 2: 40 PM CDT documented as of this encounter Plan of Treatment Not on file documented as of this encounter Visit Diagnoses Not on filedocumented in this encounter Additional Health Concerns Assessment Noted Time PHQ-9 Depression Total Score: 3 01/04/20 18 10:38 AM CDT documented as of this encounter Care Teams Ocularist Relationship Specialty Start Date End Date Elsewhere, Pcp PCP - General Family Medicine 01/29/20 documented as of this encounter
--- OUTSIDE RECORDS SUMMARY | 2023-11-08 12:37 | XMS_ITS | Encounter Summary ---
Author Organization [facility] Address [address] [place] [address] Care Team Providers Care Pouncing Lathe Operator Name Role Phone Elsewhere, Pcp Primary Care Provider Unavailabl e Encounter Details Date Type Department Care Team (Late st Contact Info) Description 09/09/2023 Orders Only Division of Nephrology and Hypertension in [place], [place] [address] [place] [address] Haseeb Menon Jr., D.O. [address] [place] [address] Social History Tobacco Use Types Packs/Day Years [...] How often do you attend buddhist or adventist serv ices? Never 03/24/2021 Do [...] Recorded PHQ-2 Score 0 10/20/2018 [facility] of Occupat ional [...] Sex Assigned at Male 03/24/2021 8:13 PM HEAD OF CONSERVATION Gender Identity Male 08/31/2019 2:40 PM CDT Sexual Orientation Straight 08/31/2019 2: 40 PM CDT documented as of this encounter Plan of Treatment Not on file documented as of this encounter Visit Diagnoses Not on filedocumented in this encounter Additional Health Concerns Assessment Noted Time PHQ-9 Depression Total Score: 3 01/04/20 18 10:38 AM CDT documented as of this encounter Care Teams Pouncing Lathe Operator Relationship Specialty Start Date End Date Elsewhere, Pcp PCP - General Family Medicine 01/29/20 documented as of this encounter
--- OUTSIDE RECORDS SUMMARY | 2023-11-08 12:37 | XMS_ITS | Encounter Summary ---
Author Organization [facility] Address [address] [place] [address] Care Team Providers Care Forms Analysis Manager Name Role Phone Elsewhere, Pcp Primary Care Provider Unavailabl e Encounter Details Date Type Department Care Team (Late st Contact Info) Description 08/16/2023 Orders Only Division of Nephrology and Hypertension, [facility], in [place], [place] [address] [place] [address] Ishan Guardado, JULIÁN, C.N.P., M.S.N. [address] [place] [address] Social History Tobacco Use Types Packs/Day Years [...] How often do you attend taoist or adventism serv ices? Never 03/24/2021 Do [...] 0 10/20/2018 [facility] - Occupational Stress Questionnaire Answer Date [...] at Male 03/24/2021 8:13 PM PROFESSOR OF GEOGRAPHY Gender Identity Male 08/31/2019 2:40 PM CDT Sexual Orientation Straight 08/31/2019 2: 40 PM CDT documented as of this encounter Plan of Treatment Not on file documented as of this encounter Visit Diagnoses Not on filedocumented in this encounter Additional Health Concerns Assessment Noted Time PHQ-9 Depression Total Score: 3 01/04/20 18 10:38 AM CDT documented as of this encounter Care Teams Forms Analysis Manager Relationship Specialty Start Date End Date Elsewhere, Pcp PCP - General Family Medicine 01/29/20 documented as of this encounter
--- OUTSIDE RECORDS SUMMARY | 2023-11-08 12:37 | XMS_ITS | Encounter Summary ---
Author Organization [facility] Address [address] [place] [address] Care Team Providers Care Insurance Underwriter Name Role Phone Elsewhere, Pcp Primary Care Provider Unavailabl e Encounter Details Date Type Department Care Team (Late st Contact Info) Description 08/09/2023 Documentation Division of Nephrology and Hypertension in [place], [place] [address] [place] [address] Haseeb Menon Jr., D.O. [address] [place] [address] Social History Tobacco Use Types Packs/Day Years [...] How often do you attend sabianism or adventist serv ices? Never 03/24/2021 Do [...] living situation today? I have a [facility] place to live 10/26/2022 Education Answer Date Recorded What is the highest level of school you have completed or the highest degree you have received? 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/2021 8:13 PM PROJECT DEVELOPMENT ENGINEER Gender Identity Male 08/31/2019 2:40 PM CDT Sexual Orientation Straight 08/31/2019 2: 40 PM CDT documented as of this encounter Progress Notes * Haseeb Menon Jr., D.O. - 08/09/2023 3:25 PM CDT Care coordination-home dialysis clinic note Please see the [facility] sure scripts and Care everywhere note [...] documented as of this encounter Care Teams Insurance Underwriter Relationship Specialty Start Date End Date Elsewhere, Pcp PCP - General Family Medicine 01/29/20 documented as of this encounter
--- OUTSIDE RECORDS SUMMARY | 2023-11-08 12:37 | XMS_ITS | Encounter Summary ---
Author Organization [facility] Address [address] [place] [address] Care Team Providers Care Manager Warehouse Name Role Phone Elsewhere, Pcp Primary Care Provider Unavailabl e Encounter Details Date Type Department Care Team (Late st Contact Info) Description 09/09/2023 Documentation Division of Nephrology and Hypertension in [place], [place] [address] [place] [address] Haseeb Menon Jr., D.O. [address] [place] [address] Social History Tobacco Use Types Packs/Day Years [...] How often do you attend nondenominational or pentecostalism serv ices? 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/2021 8:13 PM MANNEQUIN WIG MAKER Gender Identity Male 08/31/2019 2:40 PM [...] as of this encounter Care Teams Manager Warehouse Relationship Specialty Start Date End Date Elsewhere, Pcp PCP - General Family Medicine 01/29/20 documented as of this encounter
--- OUTSIDE RECORDS SUMMARY | 2023-11-08 12:37 | XMS_ITS | Encounter Summary ---
Author Organization [facility] Address [address] [place] [address] Care Team Providers Care Mechanical Product Engineer Name Role Phone Elsewhere, Pcp Primary Care Provider Unavailabl e Encounter Details Date Type Department Care Team (Late st Contact Info) Description 08/16/2023 Documentation Division of Nephrology and Hypertension, [facility], in [place], [place] [address] [place] [address] Ishan Guardado, JULIÁN, C.N.P., M.S.N. [address] [place] [address] Social History Tobacco Use Types Packs/Day Years [...] How often do you attend mandaeism or christian serv ices? 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
--- OUTSIDE RECORDS SUMMARY | 2023-11-08 12:37 | XMS_ITS | Encounter Summary ---
Author Organization [facility] Address [address] [place] [address] Care Team Providers Care Machine Operator Packaging Name Role Phone Elsewhere, Pcp Primary Care Provider Unavailabl e Reason for Visit * Reason Onset Date Comments Hypertension 09/09/2023 Encounter Details Date Type Department Care Team (Latest Contact Info) Description 09/09/2023 Clinical Communication Division of Nephrology and Hypertension in [place], [place] [address] [place] [address] Haseeb Menon Jr., D.O. [address] [place] [address] Hypertension Social History Tobacco Use Types Packs/Day [...] How often do you attend episcopal or christian serv ices? 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
--- OUTSIDE RECORDS SUMMARY | 2023-11-08 12:37 | XMS_ITS | Encounter Summary ---
Author Organization [facility] Address [address] [place] [address] Care Team Providers Care Glass Cutter Helper Name Role Phone Elsewhere, Pcp Primary Care Provider Unavailabl e Reason for Visit * Reason Onset Date Comments New Symptoms 08/15/2023 Encounter Details Date Type Department Care Team (Latest Contact Info) Description 08/15/2023 Clinical Communication Division of Nephrology and Hypertension in [place], [place] [address] [place] [address] Haseeb Menon Jr., D.O. [address] [place] [address] New Symptoms Social History Tobacco Use Types [...] How often do you attend adventism or caodaism serv ices? Never 03/24/2021 Do [...] 0 10/20/2018 [facility] Occupational Stress Questionnaire [...] living situation today? I have a [facility] place to live 10/26/2022 Education Answer Date Recorded What is the highest level of school you have completed or the highest degree you have received? 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/2021 8:13 PM OPERATIONS MGR Gender Identity Male 08/31/2019 2:40 PM CDT [...] I spoke with Uriel, Pharmacist, in our [facility]. Per his medication database, a Peritoneal [...] following references were used: other [facility] Pharmacist . * Telephone Encounter - Chloe Lazo - 08/15/2023 10:43 AM CDT Caller is: : Authorization YES Preferred Communication Method: [phone] Reason for call: Pt's , Siria, called [...] documented as of this encounter Care Teams Glass Cutter Helper Relationship Specialty Start Date End Date Elsewhere, Pcp PCP - General Family Medicine 01/29/20 documented as of this encounter
== END 2023-11-08 12:32 | disposition home or self-care (01) ==
LOC: WOUND 12:31
PROVIDERS: PCP Family Medicine; Visit Provider Nurse Practitioner Family
DX: E11.621 Type 2 diabetes mellitus with foot ulcer (principal); L97.514 Non-pressure chronic ulcer of other part of right foot with necrosis of bone; E11.22 Type 2 diabetes mellitus with diabetic chronic kidney disease; N18.5 Chronic kidney disease, stage 5; Z96.41 Presence of insulin pump (external) (internal)
CPT/HCPCS: 11042

== ENCOUNTER 2023-11-15 10:30 | Outpatient (CLI) | payer MEDICARE, BC, SELFPAY ==
--- OUTSIDE RECORDS SUMMARY | 2023-11-15 10:32 | XMS_ITS | Clinical Summary ---
Author Organization [facility] Address [address] [place] [address] Care Team Providers Care Long Term Care Phlebotomist Name Role Phone Elsewhere, Pcp Primary Care Provider Unavailabl e Source Comments Patient records contain information from all sites at [facility]. For routine questions regarding patient records, call [phone] during business hours, M-F 8:00 AM - 5:00 PM Central Time. Record requests for emergency care only can be directed to [phone] at any time.[facility] Allergies Active Allergy Reactions Criticality Noted Date Comments Gabapentin Other (see comments) Medium 08/04/2020 Dizzy, memory issue Morphine Itching,Rash Medium 02/14/2012 itchy Pregabalin Anaphylaxis High 02/16/2017 swell Qggtise-Vzc-Qpw Reductase Inhibitors Myalgia Low 02/13/2014 Medications Medication [...] TAKE ONE CAPSULE BY MOUTH EVERY DAY SNAKE CHARMER 01/14/2022 Active allopurinoL (ZYLOPRIM) 100 mg tablet [...] 04/21/2018 Restless Leg Syndrome 01/12/2018 Atherosclerosis Of [place] Ar teries Of Extremities With Intermittent Claudication Right Leg 08/08/2017 Hyperlipidemia 07/22/2017 Ulcer Leg Left 04/19/2017 Ulcer Toe Left 04/19/2017 Atherosclerosis Of [place] Ar teries Of Left Leg With Ulceration Of Unspecified Site 04/19/2017 Peripheral Arterial Disease 02/16/2017 Hypertension NOS 02/16/2017 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 09/23/2016 Overview: Hypertension (HTN) And CKD Stage 1-4 Housekeeping Room Attendant Use Of Insulin Active 09/23/2016 Overview: Housekeeping Room Attendant Use Of Insulin Active Depression Major Recurrent Moderate 06/22/2016 Overview: Depression Major Recurrent Moderate Diabetes Mellitus Type 2 Wit h Other Circulatory Complication 06/22/2016 Overview: DM2 Peripheral Neuropathy Uncontrolled Encounters Date Type Department Care Team Description 09/13/2023 Documentation Division of Nephrology and Hypertension in [place], [place] [address] [place] [address] Haseeb Menon Jr., D.OFei 09/13/2023 Orders Only Division of Nephrology and Hypertension in [place], [place] [address] [place] [address] Haseeb Menon Jr., D.O. Atherosclerosis Of [place] Arteries Of Extremities With Intermittent Claudication Right Leg (HCC) (Primary Dx); Diabetes Mellitus Type 2 With Other Circulatory Complication (HCC); Anemia Of Chronic Renal Disease; Sleep Apnea 09/09/2023 Documentation Division of Nephrology and Hypertension in [place], [place] [address] [place] [address] Haseeb Menon Jr., D.OFei 09/09/2023 Orders Only Division of Nephrology and Hypertension in [place], [place] [address] [place] [address] Haseeb Menon Jr., D.OFei 09/09/2023 Clinical Communication Division of Nephrology and Hypertension in [place], [place] [address] [place] [address] Haseeb Menon Jr., D.O. Hypertension 08/16/2023 Documentation Division of Nephrology and Hypertension, [facility], in [place], [place] [address] [place] [address] Ishan Guardado APRN C.N.P., M.S.N. 08/16/2023 Orders Only Division of Nephrology and Hypertension, [facility], in [place], [place] [address] [place] [address] Ishan Guardado APRN C.N.P., M.S.N. from Last 3 Months Immunizations Name Administration [...] How often do you attend amish or hoahaoism serv ices? Never 03/24/2021 Do [...] your living situation today? I have a [facility] place to live 10/26/2022 Education Answer Date Recorded What is the highest level of school you have completed or the highest degree you have received? 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/2021 8:13 PM BELT LACER Gender Identity Male 08/31/2019 2:40 PM [...] Screening 05/07/2021 05/07/2020 COVID-19 Vaccine (5 - 2022-2 4 season) 2023 10/27/2021, 04/02/2021, 08/09/2020, Additional history exists Fall Risk Screen (Annual) 05/16/2023 Hemoglobin A1C 05/28/2023 11/25/2022, 08/15, 02/10/2021, Additional history exists Influenza Vaccine (#1) 2024 , 03/17/2022, 03/24/2021, Additional history exists Creatinine Level (Kidney Fun ction Test) 02/18/2024 02/17/2023, 02/16/2023, 01/11/2023, Additional history exists Potassium Level 02/18/2024 02/17/2023, 10/0 08/2022, 01/11/2023, Additional history exists Sodium Level 02/18/2024 02/17/2023, 10/0 08/2022, 01/11/2023, Additional history exists Urine Albumin 02/18/2024 02/17/2023, 2 08/2022, 11/04/2021, Additional history exists Office Visit [...] C Screening Completed 02/17/2023 , 02/14/2023, 11/17/2022 Medical Devices Implanted Type Area Title One Reading Teacher Device Identifier Shelf Expiration Date Model / Serial / Lot Patch Vasc Bovine.08cm X 8cm - Flores [id number] Implanted:Qty: 1 on 04/04/2017 Mesh or Patch Other/Legacy - See Implant Description Synovis Description:Device Manufactu rer - Synovis. Body Location - Other. Vascular. Device Status Text - [id number]. Ocular Lens-10/29/2007 Implanted:10/28 by Nato Dougherty, JULIÁN, C.N.P., R.N. (Quantity not on file) Ocular Lens Bilateral: Eye Description:Cataract extract ion and insertion of intraocular lens 06/22/2016 09:27 - NATO DOUGHERTY GRAIN ELEVATOR AGENT COMMERCIAL LIGHT FIXTURE ASSEMBLER bilateral Conversions - Default Historical Implant Device [...] 6mm X 29mm X 135cm - Flores [id number] Implanted:Qty: 1 on 03/04/2017 Vascular Graft [place] Description:Device Manufactu rer - [employer]. Device Status Text - [id number]. Stent Vbx [id number] - Flores [id number] Implanted:Qty: 1 on 03/04/2017 Vascular Graft Other/Legacy - See Implant Description [place] Description:Device Manufactu rer - [employer] [place] [employer] Body Location - Other. n/a. Device Status Text - [id number]. Stent Vbx [id number] - Flores [id number] Implanted:Qty: 1 on 03/04/2017 Vascular Graft Other/Legacy - See Implant Description [place] Description:Device Manufactu rer - [employer] [place] [employer] Body Location - Other. n/a. Device Status Text - [id number]. Stent Zilver Ptx 6mm X 40mm - Flores [id number] Implanted:Qty: 1 on 04/04/2017 Vascular Stent Other/Legacy - See Implant Description [employer] Description:Device Manufactu rer - [employer]. Body Location - Other. Left. Device Status Text - [id number]. Stent Zilver Ptx 6mm X 60mm - Flores [id number] Implanted:Qty: 1 on 04/04/2017 Vascular Stent Other/Legacy - See Implant Description [employer] Description:Device Manufactu rer - [employer]. Body Location - Other. Left. Device Status Text - [id number]. Stent Zilver Ptx 6mm X 80mm - Flores [id number] Implanted:Qty: 1 on 08/31/2017 Vascular Stent Right: Other/Legacy - See Implant Description [employer] / [id number] / Description:Device Manufactu rer - [employer]. Body Location - Right. Device Status Text - [id number]. Stent Zilver Ptx 6mm X 40mm - Flores [id number] Implanted:Qty: 1 on 08/31/2017 Vascular Stent Right: Other/Legacy - See Implant Description [employer] / [id number] / Description:Device Manufactu rer - [employer]. Body Location - Right. Device Status Text - [id number]. Stnt Innova Otw [id number] - [id number] Implanted:Qty: 1 on 04/18/2018 by Kemar Velásquez M.B.B.S. at [facility] Vascular Stent [employer] 05/23/2020 [id number] / / [id number] Stnt Innova Otw [id number] - [id number] Implanted:Qty: 1 on 05/11/2019 by Kemar Velásquez M.B.B.S. at [facility] Vascular Stent Left: Leg [employer] 09/05/2020 [id number] / / [id number] Procedures Procedure Name Priority Date/Time Associated Diagnosis [...] Renal Disease Acidosis Metabolic Hyperchloremic Atherosclerosis Of [place] Arteries Of Extremities With Intermittent Claudication Right Leg (HCC) CT ABDOMEN PELVIS WITHOUT IV CONTRAST RAD - Routine (most inpatients and all outpatients) 05/27/2022 4:19 PM BELT LACER LIPID PANEL, S Routine 02/10/2021 8:27 AM CDT Peripheral Arterial Disease (HCC) Diabetes Mellitus Type 2 With Other Circulatory Complication Hyperglycemic (HCC) 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) CT CHEST WITHOUT IV CONTRAST RAD - Routine (most inpatients and all outpatients) 05/07/2020 9:29 PM BELT LACER from Last 3 Months or Most Recently [...] 9:35 AM CDT 02/17/2023 11:01 AM CDT [facility] - 02/17/2023 4:02 PM CDT Specimen Information: Specimen ID: [id number] Specimen Type: Blood Specimen Collection Start Date: 02/17/2023 ??9:35 AM Specimen Received Date: 02/17/2023 11:01 AM Specimen ID: [id number] Specimen Type: Blood Specimen Collection Start Date: 02/17/2023 ??9:35 AM Specimen Received Date: 02/17/2023 ??3:35 PM Estiven He Jr.OFei LAB BLOOD AD D-ON [facility] [address] [place] [address], [facility] [facility] [place] [address] [place] [address] AUST [facility] [address] [place] [address] * HCV Ab Scrn w/Reflex to HCV PCR, Serum (02/17/2023 9:35 AM CDT) HCV Ab Screen, S Negative Negative 02/18/20 3:35 PM CDT [facility] Comment: Biotin has been identified by the lace tearing supervisor as a potential interfering substance. Higher concentrations of biotin may be found in multivitamins, hair/nail supplements, and workout supplements. If the result does not match clinical observations, repeat testing after patient refrains from the use of supplements for at least 12 hours. Blood (Blood, Venous) 02/17/2023 9:35 AM CDT 02/17/2023 2:20 PM CDT Narrative [facility] - 02/17/2023 3:35 PM CDT Specimen Information: Specimen ID: [id number] Specimen Type: Blood Specimen Collection Start Date: 02/17/2023 ??9:35 AM Specimen Received Date: 02/17/2023 ??2:20 PM Specimen ID: [id number] Specimen Type: Blood Specimen Collection Start Date: 02/17/2023 ??9:35 AM Specimen Received Date: 02/17/2023 ??2:16 PM Estiven He Jr.O. LAB MICROBIO LOGY - BLOOD ORDERABLES [facility] [address] [place] [address], [facility] [place] [address] [place] [address] * (ABNORMAL) Albumin, Random, Urine (02/17/2023 9:26 AM CDT) Microalbumin 895.0 mg/L 02/17/2023 1:53 PM CDT [facility] Creatinine 42 mg/dL 02/17/2023 12:50 PM CDT [facility] Albumin/Creatinin e Ratio 2131(H) <17 mg/g 02/17/2023 1:53 PM CDT [facility] Urine (Urine, Voided) 02/17/2023 9:26 AM CDT 02/17/2023 11:00 AM CDT Haseeb Menon Jr., D.O. LAB URINE OR DERABLES Performing Organization Address [facility] de Phone Number [facility] [address] [place] [address], [facility] [address] [facility] [place] [address] [address] * (ABNORMAL) Hemoglobin A1c (11/25/2022 2:09 PM [...] LAB BLOOD AD D-ON Performing Organization Address [facility] Co de Phone Number [facility] [address] [place] [address], [facility] [address] [facility] [place] [address], [place] [address] * (ABNORMAL) Lipid Panel (02/10/2021 8:27 AM [...] Kemar Reyes LAB BLOOD ADD-ON [facility] [address] [place] [address], [facility] [address] [place] [address] from Last 3 Months or Most Recently Relevant to Health Maintenance Advance Directives For more information, please contact: [phone] * Full Code (Latest Code Status on [...] Answer Comments Full Code: Discussed Care Teams Long Term Care Phlebotomist Relationship Specialty Start Date End Date Elsewhere, Pcp PCP - General Family Medicine 01/29/20
--- OUTSIDE RECORDS SUMMARY | 2023-11-15 10:32 | XMS_ITS | Continuity of Care Document ---
Author Organization [facility] Address [address] [place] [address] Phone Care Team Providers Care Hot Kettle Tender Name Role Phone Dot Warner Unavailable Unavailable Medications Medication Instructions Dosage Effective Dates (start - stop) Status Comments AMPICILLIN-SULBACTAM (unknown strength) Not Available - Active MINOCYCLINE HCL (unknown strength) Not Available - Active Procedures Procedure Date Office/Outpatient Visit,Est, Mod 2022 OFFICE/OUTPATIENT VISIT EST Phone Office/Outpatient Visit,Est, Mod 2022 Follow[address] [facility] Care, [facility] 2021 Advance Directives Directive Yes / No Effective Date File Name No Information Encounters Encounter Description Practice Location Reason(s) For Visit Diagnoses Date Provider Providers Copied on Encounter [facility], [address], [place], [place], [id number] , [place] tel: [phone] [facility] - [facility] No Information 3 Kindra Chris. [facility] [place], [address] [place] [address] [address], [place], [address], [place]. tel: [phone] Office/Outpa tient Visit,Est, Mod [facility], [address], [place], [place], [id number] , [place] tel: [phone] [facility] - [facility] [place] Spinal stenosis, lumbar region with neurogenic claudication 3 Camille Bob. [facility] [place], [address] [place] [address], [address], [place], [address], [place]. tel: [phone] Referring Provider: Lisbeth Thomas, [facility] [address], [address], [place], [address]. [phone] OFFICE/OUTPA TIENT VISIT EST Phone [facility], [address], [place], [place], [id number] , [place] [phone] [facility] - [place] No Information 3 Obrien Lisbeth. [facility], [address], [address], [place], [address], [place]. [phone] Referring Provider: Lisbeth Thomas, [facility] [address], [address], [place], [address]. [phone] Office/Outpa tient Visit,Est, Mod [facility], [address], [place], [place], [id number] , [place] [phone] [facility] Low back pain, unspecifiedOther specified soft tissue disorders 3 Obrien Lisbeth. [facility] [place], [address], [address], [place], [address], [place]. [phone] Referring Provider: Lisbeth Thomas, [facility] [place] [address], [address], [place], [address]. [phone] Followup Hospital Care, Moderate [facility], [address], [place], [place], [id number] , [place] [phone] [facility] No Information 2 Dhaval Velez. [facility], [address], [address], [place], [address], [place]. [phone] Referring Provider: Rudy Riddle, [facility] And [address], [address]. tel:[phone] Family History Family Member Type Diagnosis Age At Onset No Information Payers Payer name Insurance type Covered republican ID Authorjaimealivia durant([place]) [place] [id number] Medicare [facility] [id number] Social History Type Description Quantity Date [...]
--- OUTSIDE RECORDS SUMMARY | 2023-11-15 10:32 | XMS_ITS | Clinical Summary ---
Author Organization [employer] [facility] Address [place], [place] [address] Care Team Providers Care Dry Kiln Operator Name Role Phone Casa Lucia MD Unavailable Unavailable Rudy Riddle MD Unavailable [phone] Rudy Riddle MD Primary Care Provider + Allergies Active Allergy Reactions Criticality Noted Date Comments Gabapentin Other - Describe In Comment Field Medium 08/04/2020 Dizzy, memory issue Dizzy, memory issue Morphine Itching 02/04/2010 After 3 days of use Pregabalin Anaphylaxis,Itching High 02/16/2017 swetesfaye jane Jkbvtdo-Lsj-Geu Reductase Inhibitors Myalgia 02/13/2014 Medications Medication Sig [...] Department Care Team Description 09/13/2023 Lab Requisition [facility] [phone] Unknown, Doctor from Last 3 Months Immunizations [...] Comments Blood Pressure 162/87 07/21/2022 9:21 PM OPERATIONS OFFICER TRUST DEPARTMENT Pulse 100 07/21/2022 9:21 PM OPERATIONS OFFICER TRUST DEPARTMENT Temperature 37.1 ??C (98.8 ??F) 07/21/2022 8:51 PM CS T Respiratory Rate 18 07/21/2022 8:51 PM OPERATIONS OFFICER TRUST DEPARTMENT Oxygen Saturation 96% 07/21/2022 9:21 PM OPERATIONS OFFICER TRUST DEPARTMENT Inhaled Oxygen Concentration - - Weight 83.9 kg (185 lb) 07/21/2022 5:35 PM OPERATIONS OFFICER TRUST DEPARTMENT Height 175.3 cm (5' 9) 07/21/2022 5:35 PM OPERATIONS OFFICER TRUST DEPARTMENT Body Mass Index 27.32 07/21/2022 5:35 PM OPERATIONS OFFICER TRUST DEPARTMENT Plan of Treatment Health Maintenance Due Date [...] age 77 05/12/203205/12, 02/04/2006 (Completed outside of [facility]) Tdap Completed 08/16/2016 Pneumococcal series for age [...] 0 AM CDT COLONOSCOPY 05/12/2022 8:51 AM OPERATIONS OFFICER TRUST DEPARTMENT LIPID PANEL W REFLEX MEASURED LDL Routine 02/16/2016 8:59 AM CDT Hyperlipidemia, unspecified hyperlipidemia type from Last 3 Months or Most Recently Relevant to Health Maintenance Results * LAB TRACKING EVENT (09/13/2023 11:00 AM CDT) Other (Other) Client Collect / Unknown 09/13/2023 11:00 AM CDT 09/13/2023 9:30 PM CDT Doctor Unknown LAB BILL ONLY [facility]-CENTRAL LABORATORY [address] [place] [address], * PATH TISSUE EXAM (09/13/2023 11:00 AM CDT) Case Report Pathology Report ?Case: [id number] ? Authorizing Provider: ??Unknown, Doctor ?Collected: ? 09/13/2023 1100 ? Ordering Location: ? [facility] ?Received: ?09/14/2023 1033 ? Pathologist: ? Anson Hale MD ? Specimen: ?Right foot ? 09/16/2023 7:47 AM T [facility] [facility] LABORATORY-C ENTRAL LABORATORY Final Diagnosis A) FOOT, RIGHT, BIOPSY: 1. Bone with acute and chronic osteomyelitis 09/16/2023 7:[address] [facility] Comment The specific bone that was biopsied is not provided. 09/16/2023 7:[address] [facility] Clinical Information Right foot, assess for osteomyelitis. 09/16/2023 7:47 AM [facility] [email or web address] [facility] Gross Description A) Received in formalin, labeled with the patient's name and date of , is a 1.8 x 0.5 x 0.2 cm aggregate of suresh-pink soft tissue fragments admixed with pale-suresh bone. ??The specimen is submitted entirely, in toto in 1 cassette. [facility] 09/14/2023 ?? 09/16/2023 7:[address] [facility] ENTRAL LABORATORY Microscopic Description The final diagnosis is based on microscopic examination of appropriate sections of all specimens. 09/16/2023 7:47 AM CDT [facility] LABORATORY-C ENTRAL LABORATORY Additional Information Interpreted at [facility], Central Laboratory - [address], [place] [address] 09/16/2023 7:47 AM CDT [facility] ENTRAL LABORATORY Other (Right foot) 09/13/2023 11:00 AM CDT 09/14/2023 10:33 AM CDT Doctor Unknown PATHOLOGY/CYTOLOGY [facility]-CENTRAL LABORATORY [address] [place] [address], * COLONOSCOPY (05/12/2022 8:51 AM OPERATIONS OFFICER TRUST DEPARTMENT) 05/12/2022 8:51 AM OPERATIONS OFFICER TRUST DEPARTMENT Narrative Transcriptions Lukas West MD - 05/12/2022 9:03 AM [facility] Patient Name: Onesimo Walton Procedure Date: 05/12/2022 Gender: Male Date of : 1950 Admit Type: Inpatient Procedure: Colonoscopy Proceduralist: Lukas West MD [facility] [place] Indications/Pre-Op Diagnosis: Anemia. Bacteremia Medications: Monitored Anesthesia Care Procedure Description: The patient had risks, benefits and alternatives explained to andgave informed consent. The patient had a stable cardiopulmonary status and judged an adequate candidate for conscious sedation. The [facility]-[id number] endoscope was passed through the anus and [...] Furthermanagement is per the primary team. Call [facility] back if any questions orconcerns. Lukas West MD 05/12/2022 9:03:39 AM This report has been signed electronically. Note Initiated On: 05/12/2022 8:51 AM Lukas West MD PROCEDURE ORD * (ABNORMAL) LIPID PANEL W REFLEX MEASURED LDL (02/16/2016 8:59 AM CDT) CHOLESTEROL,TOTAL 178 100 - 199 mg/dL 02/16/2016 11:02 AM [facility] TRIGLYCERIDES 232(H) <150 mg/dL 02/16/2016 11:02 AM [facility] HDL CHOLESTEROL 31(L) >40 mg/dL 02/16/2016 11:02 AM [facility] NON-HDL CHOLESTEROL 147(H) <145 mg/dl 02/16/2016 11:02 AM [facility] CHOL/HDL RATIO 5.74(H) <4.50 02/16/2016 11:02 AM [facility] LDL CHOLESTEROL 101 <=130 mg/dL 02/16/2016 11:02 AM CDT [facility] PATIENT STATUS FASTING 02/16/2016 11:02 AM CDT [facility] Blood BLOOD SPECIMEN / Unknown Venipuncture / Unknown 02/16/2016 8:59 AM CDT 02/16/2016 8:59 AM CDT Rudy Riddle MD CHEMISTRY [facility] [address] [place] [address] [facility] [address] [place] [address], [place] [phone] from Last 3 Months or Most Recently [...] Preferences, Provider to review later Care Teams Dry Kiln Operator Relationship Specialty Start Date End Date Rudy Riddle MD [address] [place] [address] PCP - General Family Practice 05/25/22 Casa Lucia MD [address] [place] [address] Ophthalmology Ophthalmology Surgery 12/22/11 Rudy Riddle MD [address] [place] [address] Family Practice 05/07/22
--- OUTSIDE RECORDS SUMMARY | 2023-11-15 10:33 | XMS_ITS | Encounter Summary ---
Author Organization [facility] Address [address] [place] [address] Care Team Providers Care Helicopter Pilot Name Role Phone Elsewhere, Pcp Primary Care Provider Unavailabl e Encounter Details Date Type Department Care Team (Late st Contact Info) Description 09/09/2023 Documentation Division of Nephrology and Hypertension in [place], [place] [address] [place] [address] Haseeb Menon Jr., D.O. [address] [place] [address] Social History Tobacco Use Types Packs/Day Years [...] How often do you attend yazidism or latter day serv ices? Never 03/24/2021 [...] Answer Date Recorded PHQ-2 Score 0 10/20/2018 [facility] of Occupat ional Health - [...] Sex Assigned at Male 03/24/2021 8:13 PM FINISH PHOTOGRAPHER Gender Identity Male 08/31/2019 2:40 PM CDT [...] documented as of this encounter Care Teams Helicopter Pilot Relationship Specialty Start Date End Date Elsewhere, Pcp PCP - General Family Medicine 01/29/20 documented as of this encounter
--- OUTSIDE RECORDS SUMMARY | 2023-11-15 10:33 | XMS_ITS | Encounter Summary ---
Author Organization [facility] Address [address] [place] [address] Care Team Providers Care Wave Soldering Machine Operator Name Role Phone Elsewhere, Pcp Primary Care Provider Unavailabl e Encounter Details Date Type Department Care Team (Late st Contact Info) Description 09/09/2023 Orders Only Division of Nephrology and Hypertension in [place], [place] [address] [place] [address] Haseeb Menon Jr., D.O. [address] [place] [address] Social History Tobacco Use Types Packs/Day Years [...] often do you attend oriental orthodox or rastafari serv ices? 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/2021 8:13 PM AUTOMATIC MOLD SANDER Gender Identity Male 08/31/2019 2:40 PM CDT Sexual Orientation Straight 08/31/2019 2: 40 PM CDT documented as of this encounter Plan of Treatment Not on file documented as of this encounter Visit Diagnoses Not on filedocumented in this encounter Additional Health Concerns Assessment Noted Time PHQ-9 Depression Total Score: 3 01/04/20 18 10:38 AM CDT documented as of this encounter Care Teams Wave Soldering Machine Operator Relationship Specialty Start Date End Date Elsewhere, Pcp PCP - General Family Medicine 01/29/20 documented as of this encounter
--- OUTSIDE RECORDS SUMMARY | 2023-11-15 10:33 | XMS_ITS | Encounter Summary ---
Author Organization [facility] Address [address] [place] [address] Care Team Providers Care Superintendent Commissary Name Role Phone Elsewhere, Pcp Primary Care Provider Unavailabl e Reason for Visit * Reason Onset Date Comments Hypertension 09/09/2023 Encounter Details Date Type Department Care Team (Latest Contact Info) Description 09/09/2023 Clinical Communication Division of Nephrology and Hypertension in [place], [place] [address] [place] [address] Haseeb Menon Jr., D.O. [address] [place] [address] Hypertension Social History Tobacco Use Types Packs/Day [...] How often do you attend buddhism or quaker serv ices? 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/2021 8:13 PM CONDUIT MECHANIC Gender Identity Male 08/31/2019 2:40 PM CDT Sexual Orientation Straight 08/31/2019 2: 40 PM CDT documented as of this encounter Miscellaneous Notes * Telephone Encounter - Danica Fowler - 09/09/2023 3:49 PM CDT Caller is: patient Preferred Communication Method: [phone] (mobile) Reason for call: Blood Pressure: BP [...] documented as of this encounter Care Teams Superintendent Commissary Relationship Specialty Start Date End Date Elsewhere, Pcp PCP - General Family Medicine 01/29/20 documented as of this encounter
--- OUTSIDE RECORDS SUMMARY | 2023-11-15 10:33 | XMS_ITS | Referral Summary ---
Author Organization [facility] Address [address] [place] [address] Care Team Providers Care Account Manager Sales Representative Name Role Phone Elsewhere, Pcp Primary Care Provider Unavailabl e Source Comments Patient records contain information from all sites at [facility]. For routine questions regarding patient records, call [phone] during business hours, M-F 8:00 AM - 5:00 PM Central Time. Record requests for emergency care only can be directed to [phone] at any time.[facility] Encounters Date Type Department Care Team Description 09/13/2023 Documentation Division of Nephrology and Hypertension in [place], [place] [address] [place] [address] Haseeb Menon Jr., D.O. 09/13/2023 Orders Only Division of Nephrology and Hypertension in [place], [place] [address] [place] [address] Haseeb Menon Jr., D.O. 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 09/09/2023 Orders Only Division of Nephrology and Hypertension in [place], [place] [address] [place] [address] Haseeb Menon Jr. D.O. 09/09/2023 Clinical Communication Division of Nephrology and Hypertension in [place], [place] [address] [place] [address] Haseeb Menon Jr., D.O. Hypertension 08/16/2023 Documentation Division of Nephrology and Hypertension, [facility], in [place], [place] [address] [place] [address] Ishan Guardado APRN, C.N.P., M.S.N. 08/16/2023 Orders Only Division of Nephrology and Hypertension, [facility], in [place], [place] [address] [place] [address] Ishan Guardado APRN, C.N.Kinza., M.S.N. from Last 3 Months Allergies Active Allergy Reactions Criticality Noted Date Comments Gabapentin Other (see comments) Medium 08/04/2020 Dizzy, memory issue Morphine Itching,Rash Medium 02/14/2012 itchy Pregabalin Anaphylaxis High 02/16/2017 swell Ekgjglo-Vyl-Wzd Reductase Inhibitors Myalgia Low 02/13/2014 Medications Medication [...] ONE CAPSULE BY MOUTH EVERY DAY CORRECTION 01/14/2022 Active allopurinoL (ZYLOPRIM) 100 mg tablet [...] 04/21/2018 Restless Leg Syndrome 01/12/2018 Atherosclerosis Of Sun'Aq Ar teries Of Extremities With Intermittent Claudication Right Leg 08/08/2017 Hyperlipidemia 07/22/2017 Ulcer Leg Left 04/19/2017 Ulcer Toe Left 04/19/2017 Atherosclerosis Of Sun'Aq Ar teries Of Left Leg With Ulceration Of Unspecified Site 04/19/2017 Peripheral Arterial Disease 02/16/2017 Hypertension NOS 02/16/2017 Hypertension And Chronic Kidney Disease Stage 4 09/23/2016 Overview: Hypertension (HTN) And CKD Stage 1-4 [facility] Use Of Insulin Active 09/23/2016 Overview: Electronic Sensing Equipment Assembler Use Of Insulin Active Depression Major Recurrent [...] Date Recorded PHQ-2 Score 0 10/20/2018 [facility] of Occupat ional Health - Occupational Stress [...] Assigned at Male 03/24/2021 8:13 PM COMMERCIAL LENDING ASSISTANT Gender Identity Male 08/31/2019 2:40 PM [...] on file Medical Devices Implanted Type Area Cosmetic Manager Device Identifier Shelf Expiration Date Model / Serial / Lot Patch Vasc Bovine.08cm X 8cm - Flores [id number] Implanted:Qty: 1 on 04/04/2017 Mesh or Patch Other/Legacy - See Implant Description Synovis Description:Device Manufactu rer - Synovis. Body Location - Other. Vascular. Device Status Text - [id number]. Ocular Lens-10/29/2007 Implanted:10/28 by Nato Dougherty APRN, C.N.P., R.N. (Quantity not on file) Ocular Lens Bilateral: Eye Description:Cataract extract ion and insertion of intraocular lens 06/22/2016 09:27 - NATO DOUGHERTY APRN PLANNING INTERN bilateral Conversions - Default Historical Implant Device [...] 6mm X 29mm X 135cm - Flores [id number] Implanted:Qty: 1 on 03/04/2017 Vascular Graft [place] Description:Device Manufactu rer - [employer]. Device Status Text - [id number]. Stent Vbx [id number] - Flores [id number] Implanted:Qty: 1 on 03/04/2017 Vascular Graft Other/Legacy - See Implant Description [place] Description:Device Manufactu rer - [employer] [place] [employer] Body Location - Other. n/a. Device Status Text - [id number]. Stent Vbx [id number] - Flores [id number] Implanted:Qty: 1 on 03/04/2017 Vascular Graft Other/Legacy - See Implant Description [place] Description:Device Manufactu rer - [employer] [place] [employer] Body Location - Other. n/a. Device Status Text - [id number]. Stent Zilver Ptx 6mm X 40mm - Flores [id number] Implanted:Qty: 1 on 04/04/2017 Vascular Stent Other/Legacy - See Implant Description [employer] Description:Device Manufactu PinPay - IdealSeat. Body Location - Other. Left. Device Status Text - [id number]. Stent Zilver Ptx 6mm X 60mm - Flores [id number] Implanted:Qty: 1 on 04/04/2017 Vascular Stent Other/Legacy - See Implant Description [employer] Description:Device Manufactu PinPay - Ideal[employer]at. Body Location - Other. Left. Device Status Text - [id number]. Stent Zilver Ptx 6mm X 80mm - Flores [id number] Implanted:Qty: 1 on 08/31/2017 Vascular Stent Right: Other/Legacy - See Implant Description [employer] / [id number] / Description:Device Manufactu PinPay - IdealSeat. Body Location - Right. Device Status Text - [id number]. Stent Zilver Ptx 6mm X 40mm - Flores [id number] Implanted:Qty: 1 on 08/31/2017 Vascular Stent Right: Other/Legacy - See Implant Description [employer] / [id number] / Description:Device Manufactu rer - IdealSeat. Body Location - Right. Device Status Text - [id number]. Stnt Innova Otw [id number] - [id number] Implanted:Qty: 1 on 04/18/2018 by Kemar Velásquez M.B.B.S. at [facility] Vascular Stent [employer] 05/23/2020 [id number] / / [id number] Stnt Innova Otw [id number] - [id number] Implanted:Qty: 1 on 05/11/2019 by Kemar Velásquez M.B.B.S. at [facility] Vascular Stent Left: Leg [employer] 09/05/2020 [id number] / / [id number] Procedures Procedure Name Priority Date/Time Associated Diagnosis [...] Renal Disease Acidosis Metabolic Hyperchloremic Atherosclerosis Of Sun'Aq Arteries Of Extremities With Intermittent Claudication Right Leg (HCC) CT ABDOMEN PELVIS WITHOUT IV CONTRAST RAD - Routine (most inpatients and all outpatients) 05/27/2022 4:19 PM COMMERCIAL LENDING ASSISTANT LIPID PANEL, S Routine 02/10/2021 8:27 AM CDT Peripheral Arterial Disease (HCC) Diabetes Mellitus Type 2 With Other Circulatory Complication Hyperglycemic (HCC) 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) CT CHEST WITHOUT IV CONTRAST RAD - Routine (most inpatients and all outpatients) 05/07/2020 9:29 PM COMMERCIAL LENDING ASSISTANT from Last 3 Months or Most Recently [...] AM CDT 02/17/2023 11:01 AM CDT Narrative [facility] - 02/17/2023 4:02 PM CDT Specimen Information: Specimen ID: [id number] Specimen Type: Blood Specimen Collection Start Date: 02/17/2023 ??9:35 AM Specimen Received Date: 02/17/2023 11:01 AM Specimen ID: [id number] Specimen Type: Blood Specimen Collection Start Date: 02/17/2023 ??9:35 AM Specimen Received Date: 02/17/2023 ??3:35 PM Haseeb Menon Jr., D.O. LAB BLOOD AD D-ON [facility] [address] [place] [address], [facility] OWAT [facility] [place] [address] [place] [address] [facility] - [facility] [address] [place] [address] * HCV Ab Scrn w/Reflex to HCV PCR, Serum (02/17/2023 9:35 AM CDT) HCV Ab Screen, S Negative Negative 02/18/20 3:35 PM CDT [facility] Comment: Biotin has been identified by the media production support manager as a potential interfering substance. Higher concentrations of biotin may be found in multivitamins, hair/nail supplements, and workout supplements. If the result does not match clinical observations, repeat testing after patient refrains from the use of supplements for at least 12 hours. Blood (Blood, Venous) 02/17/2023 9:35 AM CDT 02/17/2023 2:20 PM CDT Narrative [facility] - 02/17/2023 3:35 PM CDT Specimen Information: Specimen ID: [id number] Specimen Type: Blood Specimen Collection Start Date: 02/17/2023 ??9:35 AM Specimen Received Date: 02/17/2023 ??2:20 PM Specimen ID: [id number] Specimen Type: Blood Specimen Collection Start Date: 02/17/2023 ??9:35 AM Specimen Received Date: 02/17/2023 ??2:16 PM Haseeb Menon Jr., D.O. LAB MICROBIO LOGY - BLOOD ORDERABLES Performing Organization Address City/[facility] Co de Phone Number [facility] [address] [place] [address], [facility] MKTO [facility] [place] [address] [place] [address] * (ABNORMAL) Albumin, Random, Urine (02/17/2023 9:26 AM CDT) Microalbumin 895.0 mg/L 02/17/2023 1:53 PM CDT OWAT Creatinine 42 mg/dL 02/17/2023 12:50 PM CDT OW[facility] Albumin/Creatinin e Ratio 2131(H) <17 mg/g 02/17/2023 1:53 PM CDT [facility] Urine (Urine, Voided) 02/17/2023 9:26 AM CDT 02/17/2023 11:00 AM CDT Haseeb Menon Jr., D.O. LAB URINE OR DERABLES Performing Organization Address City/[facility]/ZIP Co de Phone Number [facility] [address] [place] [address], [facility] OWAT [facility] [place] [address] [place] [address] * (ABNORMAL) Hemoglobin A1c (11/25/2022 2:09 PM [...] LAB BLOOD AD D-ON [facility] [address] [place] [address], [place] OW[place] [facility] [place] [address] [place] [address] * (ABNORMAL) Lipid Panel (02/10/2021 8:27 AM [...] CDT Kemar Reyes LAB BLOOD ADD-ON [facility] [address] [place] [address], [place] DTL [facility] [address] [place] [address] from Last 3 Months or Most Recently Relevant to Health Maintenance Advance Directives For more information, please contact: [phone] * Full Code (Latest Code Status on [...] Answer Comments Full Code: Discussed Care Teams Account Manager Sales Representative Relationship Specialty Start Date End Date Elsewhere, Pcp PCP - General Family Medicine 01/29/20
--- OUTSIDE RECORDS SUMMARY | 2023-11-15 10:33 | XMS_ITS | Encounter Summary ---
Author Organization [facility] Address [address] [place] [address] Care Team Providers Care Cable Cutter And Swager Name Role Phone Elsewhere, Pcp Primary Care Provider Unavailpaola e Encounter Details Date Type Department Care Team (Late st Contact Info) Description 08/19/2016 Historical Ophthalmology [facility] Chalo Holland Jr., M.D. [address] [place] [address] Social History Tobacco Use Types Packs/Day Years Used Date Smoking Tobacco: Every Day Sex and Gender Information Value Date Recorded Sex Assigned at Male 03/24/2021 8:13 PM PRECONSTRUCTION MANAGER Gender Identity Male 08/31/2019 2:40 PM [...] IOL OU CDM Reports - EYEGEN Id: [id number] Status: Fnl documented in this encounter Plan of Treatment Not on file documented as of this encounter Visit Diagnoses Not on filedocumented in this encounter Additional Health Concerns Infection Onset Date Last Indicated Resolved Time COVID19 Pending 05/08/2020 05/08/2020 05/08/2020 2 :44 PM PRECONSTRUCTION MANAGER Assessment Noted Time PHQ-9 Depression Total Score: 7 08/17/19 17 9:01 AM CDT documented as of this encounter Care Teams Cable Cutter And Swager Relationship Specialty Start Date End Date Elsewhere, Pcp PCP - General Family Medicine 01/29/20 documented as of this encounter
--- OUTSIDE RECORDS SUMMARY | 2023-11-15 10:33 | XMS_ITS | Encounter Summary ---
Author Organization [facility] Address [address] [place] [address] Care Team Providers Care Regulatory Intern Name Role Phone Elsewhere, Pcp Primary Care Provider Unavailabl e Encounter Details Date Type Department Care Team (Late st Contact Info) Description 08/16/2023 Orders Only Division of Nephrology and Hypertension, [facility], in [place], [place] [address] [place] [address] Ishan Guardado, JULIÁN, C.N.P., M.S.N. [address] [place] [address] Social History Tobacco Use Types Packs/Day Years [...] How often do you attend faith or jewish serv ices? 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
--- OUTSIDE RECORDS SUMMARY | 2023-11-15 10:33 | XMS_ITS | Encounter Summary ---
Author Organization [facility] Address [address] [place] [address] Care Team Providers Care Comsec Manager Name Role Phone Elsewhere, Pcp Primary Care Provider Unavailabl e Reason for Visit * Reason Onset Date Comments New Symptoms 08/15/2023 Encounter Details Date Type Department Care Team (Latest Contact Info) Description 08/15/2023 Clinical Communication Division of Nephrology and Hypertension in [place], [place] [address] [place] [address] Haseeb Menon Jr., D.O. [address] [place] [address] New Symptoms Social History Tobacco Use Types [...] How often do you attend nondenominational or christian serv ices? Never 03/24/2021 Do [...] 10/20/2018 [facility] - Occupational Stress Questionnaire [...] your living situation today? I have a [facility] place to live 10/26/2022 Education Answer Date Recorded What is the highest level of school you have completed or the highest degree you have received? 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/2021 8:13 PM STATION SUPERVISOR Gender Identity Male 08/31/2019 2:40 PM [...] Uriel, Pharmacist, in our [facility]. Per his medication database, a [...] yes. The following references were used: other [facility] Pharmacist . * Telephone Encounter - Chloe Lazo - 08/15/2023 10:43 AM CDT Caller is: : Authorization YES Preferred Communication Method: [phone] Reason for call: Pt's , Siria, called [...] documented as of this encounter Care Teams Comsec Manager Relationship Specialty Start Date End Date Elsewhere, Pcp PCP - General Family Medicine 01/29/20 documented as of this encounter
--- OUTSIDE RECORDS SUMMARY | 2023-11-15 10:33 | XMS_ITS | Encounter Summary ---
Author Organization [facility] Address [address] [place] [address] Care Team Providers Care Vascular Technician Name Role Phone Elsewhere, Pcp Primary Care Provider Unavailabl e Reason for Referral * Outpatient (Routine) - Authorized Specialty Diagnoses / Procedures Referred By Robi hong Referred To Contact Sleep Medicine Diagnoses Atherosclerosis Of [place] Arteries Of Extremities With Intermittent Claudication Right Leg (HCC) Diabetes Mellitus Type 2 With Other Circulatory Complication (HCC) Anemia Of Chronic Renal Disease Sleep Apnea Haseeb Menon Jr., D.OFei [address] [place] [address] [facility] Referral ID Status Reason Start Date Expiration Date Visits Requested Visits Authorized [id number] Authorized Specialty Services Required 09/13/2023 03/14/2025 1 1 Encounter Details Date Type Department Care Team (Latest Contact Info) Description 09/13/2023 Orders Only Division of Nephrology and Hypertension in [place], [place] [address] [place] [address] Haseeb Menon Jr., D.O. [address] [place] [phone] Atherosclerosis Of [place] Arteries Of Extremities With Intermittent Claudication Right [...] How often do you attend baptist or mandaen serv ices? 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 FABRICATOR Gender Identity Male 08/31/2019 2:40 PM CDT Sexual Orientation Straight 08/31/2019 2: 40 PM CDT documented as of this encounter Plan of Treatment Scheduled Referrals Name Type Priority Associated Diagnoses Orde r Schedule Sleep Medicine - General consult (clinic) Outpatient Referral Routine Atherosclerosis Of [place] Arteries Of Extremities With Intermittent Claudication Right Leg (HCC) Diabetes Mellitus Type 2 With Other Circulatory Complication (HCC) Anemia Of Chronic Renal Disease Sleep Apnea Expected: 09/13/2023, Expires: 12/12/2024 documented as of this encounter Visit Diagnoses Diagnosis Atherosclerosis Of [place] Arteries Of Extremities With Intermittent Claudication Right Leg (HCC)- Primary Diabetes Mellitus Type 2 With Other Circulatory Complication (HCC) Anemia Of Chronic Renal Disease Sleep Apnea documented in this encounter Additional Health Concerns Assessment Noted Time PHQ-9 Depression Total Score: 3 01/04/20 18 10:38 AM CDT documented as of this encounter Care Teams Vascular Technician Relationship Specialty Start Date End Date Elsewhere, Pcp PCP - General Family Medicine 01/29/20 documented as of this encounter
--- OUTSIDE RECORDS SUMMARY | 2023-11-15 10:33 | XMS_ITS ---
Author Organization [facility] Address [address] [place] [address] Care Team Providers Care Camera Assembler Name Role Phone Unavailable Unavailable Unavailable Surgery Details Not on file Complications Check Surgery Details section. Procedure Estimated Blood Loss Check Surgery Details section. Procedure Findings Check Surgery Details section. Procedure Specimens Taken Check Surgery Details section.
--- OUTSIDE RECORDS SUMMARY | 2023-11-15 10:33 | XMS_ITS | Encounter Summary ---
Author Organization [facility] Address [address] [place] [id number] Care Team Providers Care Bander Name Role Phone Elsewhere, Pcp Primary Care Provider Unavailabl e Encounter Details Date Type Department Care Team (Late st Contact Info) Description 08/16/2023 Documentation Division of Nephrology and Hypertension, [facility], in [place], [place] [address] [place] [address] Ishan Guardado, JULIÁN, C.N.P., M.S.N. [address] [place] [phone] Social History Tobacco Use Types Packs/Day Years [...] How often do you attend restorationism or bahai serv ices? Never 03/24/2021 Do [...] Answer Date Recorded PHQ-2 Score 0 10/20/2018 [facility] - Occupational Stress Questionnaire Answer Date [...] Sex Assigned at Male 03/24/2021 8:13 PM GEOSPATIAL INTELLIGENCE ANALYST Gender Identity Male 08/31/2019 2:40 PM [...] documented as of this encounter Care Teams Bander Relationship Specialty Start Date End Date Elsewhere, Pcp PCP - General Family Medicine 01/29/20 documented as of this encounter
--- OUTSIDE RECORDS SUMMARY | 2023-11-15 10:33 | XMS_ITS | Encounter Summary ---
Author Organization [facility] Address [address] [place] [address] Care Team Providers Care Group Manager Name Role Phone Elsewhere, Pcp Primary Care Provider Unavailabl e Encounter Details Date Type Department Care Team (Late st Contact Info) Description 08/09/2023 Documentation Division of Nephrology and Hypertension in [place], [place] [address] [place] [address] Haseeb Menon Jr., D.O. [address] [place] [address] Social History Tobacco Use Types Packs/Day Years [...] How often do you attend mandaeism or presybeterian serv ices? Never 03/24/2021 Do [...] Answer Date Recorded PHQ-2 Score 0 10/20/2018 [facility] ional [facility] - [...] Sex Assigned at Male 03/24/2021 8:13 PM HEALTH PHYSICIST Gender Identity Male 08/31/2019 2:40 PM CDT Sexual Orientation Straight 08/31/2019 2: 40 PM CDT documented as of this encounter Progress Notes * Haseeb Menon Jr., D.O. - 08/09/2023 3:25 PM CDT Care coordination-home dialysis clinic note Please see the [facility] sure scripts and Care everywhere note [...] as of this encounter Care Teams Group Manager Relationship Specialty Start Date End Date Elsewhere, Pcp PCP - General Family Medicine 01/29/20 documented as of this encounter
--- OUTSIDE RECORDS SUMMARY | 2023-11-15 10:33 | XMS_ITS | Encounter Summary ---
Author Organization [facility] Address [address] [place] [address] Care Team Providers Care Ocean Biologist Name Role Phone Elsewhere, Pcp Primary Care Provider Unavailabl e Encounter Details Date Type Department Care Team (Late st Contact Info) Description 09/13/2023 Documentation Division of Nephrology and Hypertension in [place], [place] [address] [place] [address] Haseeb Menon Jr., D.O. [address] [place] [address] Social History Tobacco Use Types Packs/Day Years [...] often do you attend methodist or yarsani serv ices? Never 03/24/2021 Do [...] your living situation today? I have a [facility] place to live 10/26/2022 Education Answer Date Recorded What is the highest level of school you have completed or the highest degree you have received? 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/2021 8:13 PM COOK SOUP Gender Identity Male 08/31/2019 2:40 PM CDT Sexual Orientation Straight 08/31/2019 2: 40 PM CDT documented as of this encounter Progress Notes * Haseeb Menon Jr., D.O. - 09/13/2023 9:30 AM CDT Care coordination-dialysis visit: Please see the sure scripts tab, in Care everywhere or the documents tab regarding his full dialysis notes from the [facility] home program. Fair amount of confusion [...] documented as of this encounter Care Teams Ocean Biologist Relationship Specialty Start Date End Date Elsewhere, Pcp PCP - General Family Medicine 01/29/20 documented as of this encounter
--- OUTSIDE RECORDS SUMMARY | 2023-11-15 10:33 | XMS_ITS | Encounter Summary ---
Author Organization [facility] Address [address] [place] [address] Care Team Providers Care Coding Specialist Home Health Name Role Phone Elsewhere, Pcp Primary Care Provider Unavailabl e Encounter Details Date Type Department Care Team (Late st Contact Info) Description 08/09/2023 Orders Only Division of Nephrology and Hypertension in [place], [place] [address] [place] [address] Haseeb Menon Jr., D.O. [address] [place] [address] Social History Tobacco Use Types Packs/Day Years [...] How often do you attend sabianist or anabaptist serv ices? 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
== END 2023-11-15 10:31 | disposition home or self-care (01) ==
LOC: WOUND 10:30
PROVIDERS: PCP Family Medicine; Visit Provider Nurse Practitioner Family
DX: E11.621 Type 2 diabetes mellitus with foot ulcer (principal); L97.514 Non-pressure chronic ulcer of other part of right foot with necrosis of bone; E11.22 Type 2 diabetes mellitus with diabetic chronic kidney disease; Z99.2 Dependence on renal dialysis; Z96.41 Presence of insulin pump (external) (internal); N18.5 Chronic kidney disease, stage 5
CPT/HCPCS: 11042

== ENCOUNTER 2023-11-22 10:24 | Outpatient (CLI) | payer MEDICARE, BC, SELFPAY ==
--- OUTSIDE RECORDS SUMMARY | 2023-11-22 10:26 | XMS_ITS | Continuity of Care Document ---
Author Organization [facility] Address [address] [place] [address] Phone Care Team Providers Care Chimney Repairer Name Role Phone Dot Warner Unavailable Unavailable Medications Medication Instructions Dosage Effective Dates (start - stop) Status Comments MINOCYCLINE HCL (unknown strength) Not Available - Active AMPICILLIN-SULBACTAM (unknown strength) Not Available - Active Procedures Procedure Date Office/Outpatient Visit,Est, Mod 2022 OFFICE/OUTPATIENT VISIT EST Phone Office/Outpatient Visit,Est, Mod 2022 Followup Hospital Care, [facility] 2021 Advance Directives Directive Yes / No Effective Date File Name No Information Encounters Encounter Description Practice Location Reason(s) For Visit Diagnoses Date Provider Providers Copied on Encounter [facility], [address], [place], [place], [id number] , [place] tel: [phone] [facility] No Information 3 Kindra Chris. [facility], [address] [place] [address] [address], [place], [address], [place]. tel: [phone] Office/Outpa tient Visit,Est, Mod [facility], [address], [place], [place], [id number] , [place] tel: [phone] [facility] [place] Spinal stenosis, lumbar region with neurogenic claudication 3 Camille Bob. [facility], [address] [place] [address], [address], [place], [address], [place]. tel: [phone] Referring Provider: Lisbeth Thomas, [facility] [address], [address], [place], [address]. [phone] OFFICE/OUTPA TIENT VISIT EST Phone [facility], [address], [place], [place], [id number] , [place] [phone] [facility] [place] No Information 3 Obrien Lisbeth. [facility], [address], [address], [place], [address], [place]. [phone] Referring Provider: Lisbeth Thomas, [facility] [address], [address], [place], [address]. [phone] Office/Outpa tient Visit,Est, Mod [facility], [address], [place], [place], [id number] , [place] [phone] [facility] Low back pain, unspecifiedOther specified soft tissue disorders 3 Obrien Lisbeth. [facility], [address], [address], [place], [address], [place]. [phone] Referring Provider: Lisbeth Thomas, [facility] [address], [address], [place], [address]. [phone] Followup Hospital Care, Moderate [facility], [address], [place], [place], [id number] , [place] [phone] [facility] No Information 2 Dhaval Velez. [facility], [address], [address], [place], [address], [place]. [phone] Referring Provider: Rudy Riddle, [facility] And [address], [address]. tel:[phone] Family History Family Member Type Diagnosis Age At Onset No Information Payers Payer name Insurance type Covered libertarian ID Authorjaimealivia durant(s) [id number] Medicare [facility] [id number] Social History Type Description Quantity Date [...]
--- OUTSIDE RECORDS SUMMARY | 2023-11-22 10:27 | XMS_ITS | Clinical Summary ---
Author Organization [facility] Address [address] [place] [address] Care Team Providers Care Sales And Leasing Agent Name Role Phone Elsewhere, Pcp Primary Care Provider Unavailabl e Source Comments Patient records contain information from all sites at [facility]. For routine questions regarding patient records, call [phone] during business hours, M-F 8:00 AM - 5:00 PM Central Time. Record requests for emergency care only can be directed to [phone] at any time.[facility] Allergies Active Allergy Reactions Criticality Noted Date Comments Gabapentin Other (see comments) Medium 08/04/2020 Dizzy, memory issue Morphine Itching,Rash Medium 02/14/2012 itchy Pregabalin Anaphylaxis High 02/16/2017 swell Zodwssb-Kse-Iyf Reductase Inhibitors Myalgia Low 02/13/2014 Medications Medication [...] TAKE ONE CAPSULE BY MOUTH EVERY DAY CHILDREN COUNSELOR 01/14/2022 Active allopurinoL (ZYLOPRIM) 100 mg tablet [...] 04/21/2018 Restless Leg Syndrome 01/12/2018 Atherosclerosis Of [place] Ar teries Of Extremities With Intermittent Claudication Right Leg 08/08/2017 Hyperlipidemia 07/22/2017 Ulcer Leg Left 04/19/2017 Ulcer Toe Left 04/19/2017 Atherosclerosis Of [place] Ar teries Of Left Leg With Ulceration Of Unspecified Site 04/19/2017 Peripheral Arterial Disease 02/16/2017 Hypertension NOS 02/16/2017 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 09/13/2023 Orders Only Division of Nephrology and Hypertension in [place], [place] [address] [place] [address] Haseeb Menon Jr., D.O. Atherosclerosis Of [place] Arteries Of Extremities With Intermittent Claudication Right Leg (HCC) (Primary Dx); Diabetes Mellitus Type 2 With Other Circulatory Complication (HCC); Anemia Of Chronic Renal Disease; Sleep Apnea 09/09/2023 Documentation Division of Nephrology and Hypertension in [place], [place] [address] [place] [address] Haseeb Menon Jr., D.O. 09/09/2023 Orders Only Division of Nephrology and Hypertension in [place], [place] [address] [place] [address] Haseeb Menon Jr. D.O. 09/09/2023 Clinical Communication Division of Nephrology and Hypertension in [place], [place] [address] [place] [address] Haseeb Menon Jr. D.O. Hypertension from Last 3 Months Immunizations Name Administration [...] How often do you attend congregational or druze serv ices? Never 03/24/2021 Do [...] Answer Date Recorded PHQ-2 Score 0 10/20/2018 [facility] of Occupat ional Health - Occupational Stress [...] Sex Assigned at Male 03/24/2021 8:13 PM DEDENTER Gender Identity Male 08/31/2019 2:40 PM CDT [...] 02/14/2023, 11/17/2022 Medical Devices Implanted Type Area Milk Condenser Device Identifier Shelf Expiration Date Model / Serial / Lot Patch Vasc Bovine.08cm X 8cm - [place] [id number] Implanted:Qty: 1 on 04/04/2017 Mesh or Patch Other/Legacy - See Implant Description Synovis Description:Device Manufactu rer - Synovis. Body Location - Other. Vascular. Device Status Text - [id number]. Ocular Lens-10/29/2007 Implanted:10/28 by Nato Dougherty, JULIÁN, C.N.P., R.N. (Quantity not on file) Ocular Lens Bilateral: Eye Description:Cataract extract ion and insertion of intraocular lens 06/22/2016 09:27 - NATO DOUGHERTY ASSIGNMENT OFFICER INCOMING INSPECTOR bilateral Conversions - Default Historical Implant [...] 6mm X 29mm X 135cm - [place] [id number] Implanted:Qty: 1 on 03/04/2017 Vascular Graft [place] Description:Device Manufactu rer - [place] [employer]. Device Status Text - [id number]. Stent Vbx [id number] - [place] [id number] Implanted:Qty: 1 on 03/04/2017 Vascular Graft Other/Legacy - See Implant Description [place] Description:Device Manufactu rer - [employer] [place] [employer] Body Location - Other. n/a. Device Status Text - [id number]. Stent Vbx [id number] - [place] [id number] Implanted:Qty: 1 on 03/04/2017 Vascular Graft Other/Legacy - See Implant Description [place] Description:Device Manufactu rer - [employer] [place] [employer] Body Location - Other. n/a. Device Status Text - [id number]. Stent Zilver Ptx 6mm X 40mm - [place] [id number] Implanted:Qty: 1 on 04/04/2017 Vascular Stent Other/Legacy - See Implant Description [employer] Description:Device Manufactu rer - Reocar. Body Location - Other. Left. Device Status Text - [id number]. Stent Zilver Ptx 6mm X 60mm - [place] [id number] Implanted:Qty: 1 on 04/04/2017 Vascular Stent Other/Legacy - See Implant Description [employer]. Description:Device Manufactu rer - [employer]. Body Location - Other. Left. Device Status Text - [id number]. Stent Zilver Ptx 6mm X 80mm - [place] [id number] Implanted:Qty: 1 on 08/31/2017 Vascular Stent Right: Other/Legacy - See Implant Description [employer]. / [id number] / Description:Device Manufactu rer - [employer]. Body Location - Right. Device Status Text - [id number]. Stent Zilver Ptx 6mm X 40mm - [place] [id number] Implanted:Qty: 1 on 08/31/2017 Vascular Stent Right: Other/Legacy - See Implant Description [employer]. / [id number] / Description:Device Manufactu rer - [employer]. Body Location - Right. Device Status Text - [id number]. Stnt Innova Otw [id number] - [id number] Implanted:Qty: 1 on 04/18/2018 by Kemar Velásquez M.B.B.S. at [facility] Vascular Stent [employer] 05/23/2020 [id number] / / [id number] Stnt Innova Otw [id number] - [id number] Implanted:Qty: 1 on 05/11/2019 by Kemar Velásquez M.B.B.S. at [facility] Vascular Stent Left: Leg [employer] [employer] 09/05/2020 [id number] / / [id number] Procedures Procedure Name Priority Date/Time Associated Diagnosis [...] Renal Disease Acidosis Metabolic Hyperchloremic Atherosclerosis Of [place] Arteries Of Extremities With Intermittent Claudication Right Leg (HCC) CT ABDOMEN PELVIS WITHOUT IV CONTRAST RAD - Routine (most inpatients and all outpatients) 05/27/2022 4:19 PM DEDENTER LIPID PANEL, S Routine 02/10/2021 8:27 AM CDT Peripheral Arterial Disease (HCC) Diabetes Mellitus Type 2 With Other Circulatory Complication Hyperglycemic (HCC) 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) CT CHEST WITHOUT IV CONTRAST RAD - Routine (most inpatients and all outpatients) 05/07/2020 9:29 PM DEDENTER from Last 3 Months or Most Recently Relevant to Health Maintenance Results * (ABNORMAL) Renal Function Panel (02/17/2023 9:35 AM CDT) Pathologist [facility] Potassium, P 4.4 3.6 - 5.2 mmol/L [...] AM CDT 02/17/2023 11:01 AM CDT Narrative [facility] - 02/17/2023 4:02 PM CDT Specimen Information: Specimen ID: [id number] Specimen Type: Blood Specimen Collection Start Date: 02/17/2023 ??9:35 AM Specimen Received Date: 02/17/2023 11:01 AM Specimen ID: [id number] Specimen Type: Blood Specimen Collection Start Date: 02/17/2023 ??9:35 AM Specimen Received Date: 02/17/2023 ??3:35 PM Estiven He Jr.OFei LAB BLOOD AD D-ON [facility] [address] [place] [address], [facility] OWAT [facility] [place] [address] [place] [address] AUST [place] [facility] [address] [place] [address] * HCV Ab Scrn w/Reflex to HCV PCR, Serum (02/17/2023 9:35 AM CDT) HCV Ab Screen, S Negative Negative 02/18/20 3:35 PM CDT [facility] Comment: Biotin has been identified by the traffic ii manager as a potential interfering substance. Higher concentrations of biotin may be found in multivitamins, hair/nail supplements, and workout supplements. If the result does not match clinical observations, repeat testing after patient refrains from the use of supplements for at least 12 hours. Blood (Blood, Venous) 02/17/2023 9:35 AM CDT 02/17/2023 2:20 PM CDT Narrative [facility] - 02/17/2023 3:35 PM CDT Specimen Information: Specimen ID: [id number] Specimen Type: Blood Specimen Collection Start Date: 02/17/2023 ??9:35 AM Specimen Received Date: 02/17/2023 ??2:20 PM Specimen ID: [id number] Specimen Type: Blood Specimen Collection Start Date: 02/17/2023 ??9:35 AM Specimen Received Date: 02/17/2023 ??2:16 PM Haseeb Menon Jr., D.O. LAB MICROBIO LOGY - BLOOD ORDERABLES Performing Organization Address City/State/[facility] [[email or web address]] Co de Phone Number [facility] [address] [place] [address], [facility] in [place] [address] [place] [address] * (ABNORMAL) Albumin, Random, Urine (02/17/2023 9:26 AM CDT) Microalbumin 895.0 mg/L 02/17/2023 1:53 PM CDT OWAT Creatinine 42 mg/dL 02/17/2023 12:50 PM CDT OWAT Albumin/Creatinin e Ratio 2131(H) <17 mg/g 02/17/2023 1:53 PM CDT OW[facility] Urine (Urine, Voided) 02/17/2023 9:26 AM CDT 02/17/2023 11:00 AM CDT Haseeb Menon Jr., D.O. LAB URINE OR DERABLES [facility] [address] [place] [address], [facility] in [place] [address] [place] [address] * (ABNORMAL) Hemoglobin A1c (11/25/2022 2:09 PM CDT) Hemoglobin A1c, B 6.2(H) 4.2 - 5.6 % 11/25/2022 4:40 PM CDT [facility] Comment: Hemoglobin A1c values of 5.7-6.4 percent indicate an increased risk for developing diabetes mellitus. In diabetic patients, HbA1c goals should be discussed with healthcare provider. Blood (Blood, Venous) 11/25/2022 2:09 PM CDT 11/25/2022 3:35 PM CDT Haseeb Menon Jr., D.O. LAB BLOOD AD D-ON Performing Organization Address [facility] [[email or web address]] Co de Phone Number [facility] [address] [place] [address], [facility] [place] [address] [place] [address] * (ABNORMAL) Lipid Panel (02/10/2021 8:27 AM [...] AM CDT Kemar Reyes LAB BLOOD ADD-ON [facility] [address] [place] [address], [place] [facility] [address] [place] [address] from Last 3 Months or Most Recently Relevant to Health Maintenance Advance Directives For more information, please contact: [phone] * Full Code (Latest Code Status on [...] Answer Comments Full Code: Discussed Care Teams Sales And Leasing Agent Relationship Specialty Start Date End Date Elsewhere, Pcp PCP - General Family Medicine 01/29/20
--- OUTSIDE RECORDS SUMMARY | 2023-11-22 10:27 | XMS_ITS | Referral Summary ---
Author Organization [facility] Address [address] [place] [address] Care Team Providers Care Brickmason Helper Name Role Phone Elsewhere, Pcp Primary Care Provider Unavailabl e Source Comments Patient records contain information from all sites at [facility]. For routine questions regarding patient records, call [phone] during business hours, M-F 8:00 AM - 5:00 PM Central Time. Record requests for emergency care only can be directed to [phone] at any time.[facility] Encounters Date Type Department Care Team Description 09/13/2023 Documentation Division of Nephrology and Hypertension in [place], [place] [address] [place] [address] Haseeb Menon Jr., D.O. 09/13/2023 Orders Only Division of Nephrology and Hypertension in [place], [place] [address] [place] [address] Haseeb Menon Jr., D.O. 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 09/09/2023 Orders Only Division of Nephrology and Hypertension in [place], [place] [address] [place] [address] Haseeb Menon Jr. D.O. 09/09/2023 Clinical Communication Division of Nephrology and Hypertension in [place], [place] [address] [place] [address] Haseeb Menon Jr., D.O. Hypertension from Last 3 Months Allergies Active Allergy Reactions Criticality Noted Date Comments Gabapentin Other (see comments) Medium 08/04/2020 Dizzy, memory issue Morphine Itching,Rash Medium 02/14/2012 itchy Pregabalin Anaphylaxis High 02/16/2017 swell Gnwkcby-Evb-Viq Reductase Inhibitors Myalgia Low 02/13/2014 Medications Medication [...] ONE CAPSULE BY MOUTH EVERY DAY USP 01/14/2022 Active allopurinoL (ZYLOPRIM) 100 mg tablet [...] 04/21/2018 Restless Leg Syndrome 01/12/2018 Atherosclerosis Of [place] Ar teries Of Extremities With Intermittent Claudication Right Leg 08/08/2017 Hyperlipidemia 07/22/2017 Ulcer Leg Left 04/19/2017 Ulcer Toe Left 04/19/2017 Atherosclerosis Of [place] Ar teries Of Left Leg With Ulceration Of Unspecified Site 04/19/2017 Peripheral Arterial Disease 02/16/2017 Hypertension NOS 02/16/2017 Hypertension And Chronic Kidney Disease Stage 4 09/23/2016 Overview: Hypertension (HTN) And CKD Stage 1-4 [place] Use Of Insulin Active 09/23/2016 Overview: Halfway Use Of Insulin Active Depression Major Recurrent [...] How often do you attend evangelical or gnosticism serv ices? 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 Body Location - Other. Vascular. Device Status Text - [id number]. Ocular Lens-10/29/2007 Implanted:10/28 by Nato Dougherty APRN, C.N.P., R.N. (Quantity not on file) Ocular Lens Bilateral: Eye Description:Cataract extract ion and insertion of intraocular lens 06/22/2016 09:27 - NATO DOUGHERTY APRN PLASTICS REPAIRER bilateral Conversions - Default Historical Implant Device [...] 6mm X 29mm X 135cm - [place] [id number] Implanted:Qty: 1 on 03/04/2017 Vascular Graft Julian Description:Device Manufactu rer - [employer]. Device Status Text - [id number]. Stent Vbx [id number] - [place] [id number] Implanted:Qty: 1 on 03/04/2017 Vascular Graft Other/Legacy - See Implant Description Julian Description:Device Manufactu rer - [employer] Body Location - Other. n/a. Device Status Text - [id number]. Stent Vbx [id number] - [place] [id number] Implanted:Qty: 1 on 03/04/2017 Vascular Graft Other/Legacy - See Implant Description Julian Description:Device Manufactu rer - [employer] Body Location - Other. n/a. Device Status Text - [id number]. Stent Zilver Ptx 6mm X 40mm - [place] [id number] Implanted:Qty: 1 on 04/04/2017 Vascular Stent Other/Legacy - See Implant Description Cook [employer] Inc. Description:Device Manufactu rer - Cook [employer]. Body Location - Other. Left. Device Status Text - [id number]. Stent Zilver Ptx 6mm X 60mm - [place] [id number] Implanted:Qty: 1 on 04/04/2017 Vascular Stent Other/Legacy - See Implant Description [employer]. Description:Device Manufactu rer - [employer]. Body Location - Other. Left. Device Status Text - [id number]. Stent Zilver Ptx 6mm X 80mm - [place] [id number] Implanted:Qty: 1 on 08/31/2017 Vascular Stent Right: Other/Legacy - See Implant Description [employer]. / [id number] / Description:Device Manufactu rer - [employer]. Body Location - Right. Device Status Text - [id number]. Stent Zilver Ptx 6mm X 40mm - [place] [id number] Implanted:Qty: 1 on 08/31/2017 Vascular Stent Right: Other/Legacy - See Implant Description [employer] / [id number] / Description:Device Manufactu rer - [employer]. Body Location - Right. Device Status Text - [id number]. [facility] Innova Otw [id number] - [id number] Implanted:Qty: 1 on 04/18/2018 by Kemar Velásquez M.B.BFeiSFei at [facility] Vascular Stent [employer]sol [employer] 05/23/2020 [id number] / / [id number] [facility] Innovalivia Otw [id number] - [id number] Implanted:Qty: 1 on 05/11/2019 by Kemar Velásquez M.B.B.S. at [facility] Vascular Stent Left: Leg Bypass Mobile 09/05/2020 [id number] / / [id number] Procedures Procedure Name Priority Date/Time Associated Diagnosis [...] Renal Disease Acidosis Metabolic Hyperchloremic Atherosclerosis Of [place] Arteries Of Extremities With Intermittent Claudication Right Leg (HCC) CT ABDOMEN PELVIS WITHOUT IV CONTRAST RAD - Routine (most inpatients and all outpatients) 05/27/2022 4:19 PM DIE LAY OUT WORKER LIPID PANEL, S Routine 02/10/2021 8:27 AM CDT Peripheral Arterial Disease (HCC) Diabetes Mellitus Type 2 With Other Circulatory Complication Hyperglycemic (HCC) 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 LAB BLOOD AD D-ON [facility] [address] [place] [address], [facility] OWAT [facility] [place] [address] [place] [address] AUST [place] [facility] - [facility] [address] [place] [address] * HCV Ab Scrn w/Reflex to HCV PCR, Serum (02/17/2023 9:35 AM CDT) HCV Ab Screen, S Negative Negative 02/18/20 3:35 PM CDT [facility] Comment: Biotin has been identified by the intertype operator as a potential interfering substance. Higher [...] 3:35 PM CDT Specimen Information: Specimen ID: [id number] Specimen Type: Blood Specimen Collection Start Date: 02/17/2023 ??9:35 AM Specimen Received Date: 02/17/2023 ??2:20 PM Specimen ID: [id number] Specimen Type: Blood Specimen Collection Start Date: 02/17/2023 ??9:35 AM Specimen Received Date: 02/17/2023 ??2:16 PM Haseeb Menon Jr., D.O. LAB MICROBIO LOGY - BLOOD ORDERABLES Performing Organization Address [facility] Co de Phone Number [facility] [address] [place] [address], [facility] MKTO [facility] [place] [address] [place] [address] * (ABNORMAL) Albumin, Random, Urine (02/17/2023 9:26 AM CDT) Microalbumin 895.0 mg/L 02/17/2023 1:53 PM CDT OWAT Creatinine 42 mg/dL 02/17/2023 12:50 PM CDT OW[facility] Albumin/Creatinin e Ratio 2131(H) <17 mg/g 02/17/2023 1:53 PM CDT [facility] Urine (Urine, Voided) 02/17/2023 9:26 AM CDT 02/17/2023 11:00 AM CDT Haseeb Menon Jr., D.O. LAB URINE OR DERABLES Performing Organization Address [facility] Co de Phone Number [facility] [address] [place] [address], [facility] OWAT [facility] [place] [address], [place] [address] * (ABNORMAL) Hemoglobin A1c (11/25/2022 2:09 PM [...] LAB BLOOD AD D-ON Performing Organization Address City/[facility]/ZIP Co de Phone Number [facility] [address] [address], [facility] OWAT [facility] [place] [address] [place] [address] * (ABNORMAL) Lipid Panel (02/10/2021 8:27 AM [...] CDT Kemar Reyes LAB BLOOD ADD-ON [facility] [address] [place] [address], [facility] [address] [place] [address] from Last 3 Months or Most Recently Relevant to Health Maintenance Advance Directives For more information, please contact: [phone] * Full Code (Latest Code Status on [...] Answer Comments Full Code: Discussed Care Teams Brickmason Helper Relationship Specialty Start Date End Date Elsewhere, Pcp PCP - General Family Medicine 01/29/20
--- OUTSIDE RECORDS SUMMARY | 2023-11-22 10:27 | XMS_ITS | Encounter Summary ---
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 Claudication Right Leg (HCC) Diabetes Mellitus Type 2 With Other Circulatory Complication (HCC) Anemia Of Chronic Renal Disease Sleep Apnea Haseeb Menon Jr., D.OFei [address] [place] [address] [facility] Referral ID Status Reason Start Date Expiration Date Visits Requested Visits Authorized [id number] Authorized Specialty Services Required 09/13/2023 03/14/2025 1 1 Encounter Details Date Type Department Care Team (Latest Contact Info) Description 09/13/2023 Orders Only Division of Nephrology and Hypertension in [place], [place] [address] [place] [address] Haseeb Menon Jr., D.O. [address] [place] [address] Atherosclerosis Of [place] Arteries Of Extremities With Intermittent Claudication [...] How often do you attend denominational or taoism serv ices? 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 Claudication Right Leg (HCC) Diabetes Mellitus Type 2 With Other Circulatory Complication (HCC) Anemia Of Chronic Renal Disease Sleep Apnea Expected: 09/13/2023, Expires: 12/12/2024 documented as of this encounter Visit Diagnoses Diagnosis Atherosclerosis Of [place] Arteries Of Extremities With Intermittent Claudication Right Leg (HCC)- Primary Diabetes Mellitus Type 2 With Other Circulatory Complication (HCC) Anemia Of Chronic Renal Disease Sleep Apnea documented in this encounter Additional Health Concerns Assessment Noted Time PHQ-9 Depression Total Score: 3 01/04/20 18 10:38 AM CDT documented as of this encounter Care Teams Sales Review Clerk Relationship Specialty Start Date End Date Elsewhere, Pcp PCP - General Family Medicine 01/29/20 documented as of this encounter
--- OUTSIDE RECORDS SUMMARY | 2023-11-22 10:27 | XMS_ITS | Encounter Summary ---
Author Organization [facility] Address [address] [place] [address] Care Team Providers Care Tool Polishing Machine Operator Name Role Phone Elsewhere, Pcp Primary Care Provider Unavailabl e Encounter Details Date Type Department Care Team (Late st Contact Info) Description 09/13/2023 Documentation Division of Nephrology and Hypertension in [place], [place] [address] [place] [address] Haseeb Menon Jr., D.O. [address] [place] [address] Social History Tobacco Use Types Packs/Day Years [...] How often do you attend restorationist or congregation serv ices? 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 - 09/13/2023 9:30 AM CDT Care coordination-dialysis visit: Please see the sure scripts tab, in Care everywhere or the documents tab regarding his full dialysis notes from the [facility] Dialysis home program. Fair amount of [...] as of this encounter Care Teams Tool Polishing Machine Operator Relationship Specialty Start Date End Date Elsewhere, Pcp PCP - General Family Medicine 01/29/20 documented as of this encounter
--- OUTSIDE RECORDS SUMMARY | 2023-11-22 10:27 | XMS_ITS | Clinical Summary ---
Author Organization [facility] [place], [place] [address] Care Team Providers Care Bone Plant Supervisor Name Role Phone Casa Lucia MD Unavailable Unavailable Rudy Riddle MD Unavailable [phone] Rudy Riddle MD Primary Care Provider + Allergies Active Allergy Reactions Criticality Noted Date Comments Gabapentin Other - Describe In Comment Field Medium 08/04/2020 Dizzy, memory issue Dizzy, memory issue Morphine Itching 02/04/2010 After 3 days of use Pregabalin Anaphylaxis,Itching High 02/16/2017 swetesfaye jane Dvzkiuo-Ljd-Myf Reductase Inhibitors Myalgia 02/13/2014 Medications Medication Sig [...] Department Care Team Description 09/13/2023 Lab Requisition [facility] [phone] Unknown, Doctor from Last 3 Months Immunizations [...] Comments Blood Pressure 162/87 07/21/2022 9:21 PM BIOPHYSICS SCIENTIST Pulse 100 07/21/2022 9:21 PM BIOPHYSICS SCIENTIST Temperature 37.1 ??C (98.8 ??F) 07/21/2022 8:51 PM CS T Respiratory Rate 18 07/21/2022 8:51 PM BIOPHYSICS SCIENTIST Oxygen Saturation 96% 07/21/2022 9:21 PM BIOPHYSICS SCIENTIST Inhaled Oxygen Concentration - - Weight 83.9 kg (185 lb) 07/21/2022 5:35 PM BIOPHYSICS SCIENTIST Height 175.3 cm (5' 9) 07/21/2022 5:35 PM BIOPHYSICS SCIENTIST Body Mass Index 27.32 07/21/2022 5:35 PM BIOPHYSICS SCIENTIST Plan of Treatment Health Maintenance Due Date [...] age 77 05/12/203205/12, 02/04/2006 (Completed outside of [facility]) Tdap Completed 08/16/2016 Pneumococcal series for [...] 0 AM CDT COLONOSCOPY 05/12/2022 8:51 AM BIOPHYSICS SCIENTIST LIPID PANEL W REFLEX MEASURED LDL Routine 02/16/2016 8:59 AM CDT Hyperlipidemia, unspecified hyperlipidemia type from Last 3 Months or Most Recently Relevant to Health Maintenance Results * LAB TRACKING EVENT (09/13/2023 11:00 AM CDT) Other (Other) Client Collect / Unknown 09/13/2023 11:00 AM CDT 09/13/2023 9:30 PM CDT Doctor Unknown LAB BILL ONLY [facility] LABORAT[facility] [address] [place] [address], * PATH TISSUE EXAM (09/13/2023 11:00 AM CDT) Case Report Pathology Report ?Case: [id number] ? Authorizing Provider: ??Unknown, Doctor ?Collected: ? 09/13/2023 1100 ? Ordering Location: ? [facility] ?Received: ?09/14/2023 1033 ? Pathologist: ? Anson Hale MD ? Specimen: ?Right foot ? 09/16/2023 7:47 AM T [facility] LABORATORY-C ENTRAL LABORATORY Final Diagnosis A) FOOT, RIGHT, BIOPSY: 1. Bone with acute and chronic osteomyelitis 09/16/2023 7:47 AM [email or web address] Comment The specific bone that was biopsied is not provided. 09/16/2023 7:47 AM T [email or web address]ATORY Clinical Information Right foot, assess for osteomyelitis. 09/16/2023 7:[address] [facility] Gross Description A) Received in formalin, labeled with the patient's name and date of , is a 1.8 x 0.5 x 0.2 cm aggregate of suresh-pink soft tissue fragments admixed with pale-suresh bone. ??The specimen is submitted entirely, in toto in 1 cassette. [facility] 09/14/2023 ?? 09/16/2023 7:47 AM T [email or web address] ENTRAL LABORATORY Microscopic Description The final diagnosis is based on microscopic examination of appropriate sections of all specimens. 09/16/2023 7:47 AM CDT [facility]-C ENTRAL LABORATORY Additional Information Interpreted at [facility], Central Laboratory - [address], [place] [address] 09/16/2023 7:47 AM CDT [facility] ENTRAL LABORATORY Other (Right foot) 09/13/2023 11:00 AM CDT 09/14/2023 10:33 AM CDT Doctor Unknown PATHOLOGY/CYTOLOGY [facility]TR[facility] LABORATORY [address] [place] [address], * COLONOSCOPY (05/12/2022 8:51 AM BIOPHYSICS SCIENTIST) 05/12/2022 8:51 AM BIOPHYSICS SCIENTIST Narrative Transcriptions Lukas West MD - 05/12/2022 9:03 AM C[facility] Patient Name: Onesimo Walton Procedure Date: 05/12/2022 Gender: Male Date of : 1950 Admit Type: Inpatient Procedure: Colonoscopy Proceduralist: Lukas West MD [facility] [place] Indications/Pre-Op Diagnosis: Anemia. Bacteremia Medications: Monitored Anesthesia Care Procedure Description: The patient had risks, benefits and alternatives explained to andgave informed consent. The patient had a stable cardiopulmonary status and judged an adequate candidate for conscious sedation. The [facility]-[id number] endoscope was passed through the anus and [...] Furthermanagement is per the primary team. Call [facility] back if any questions orconcerns. Lukas West MD 05/12/2022 9:03:39 AM This report has been signed electronically. Note Initiated On: 05/12/2022 8:51 AM Lukas West MD PROCEDURE ORD * (ABNORMAL) LIPID PANEL W REFLEX MEASURED LDL (02/16/2016 8:59 AM CDT) CHOLESTEROL,TOTAL 178 100 - 199 mg/dL 02/16/2016 11:02 AM [facility] TRIGLYCERIDES 232(H) <150 mg/dL 02/16/2016 11:02 AM [facility] HDL CHOLESTEROL 31(L) >40 mg/dL 02/16/2016 11:02 AM [facility] NON-HDL CHOLESTEROL 147(H) <145 mg/dl 02/16/2016 11:02 AM [facility] CHOL/HDL RATIO 5.74(H) <4.50 02/16/2016 11:02 AM [facility] LDL CHOLESTEROL 101 <=130 mg/dL 02/16/2016 11:02 AM CDT [facility] PATIENT STATUS FASTING 02/16/2016 11:02 AM CDT [facility] Blood BLOOD SPECIMEN / Unknown Venipuncture / Unknown 02/16/2016 8:59 AM CDT 02/16/2016 8:59 AM CDT Rudy Riddle MD CHEMISTRY [facility] [address] [place] [address] [facility] [address] [place] [address], [place] [phone] from Last 3 Months or Most Recently [...] Preferences, Provider to review later Care Teams Bone Plant Supervisor Relationship Specialty Start Date End Date Rudy Riddle MD [address] [place] [address] PCP - General Family Practice 05/25/22 Casa Lucia MD [address] [place] [address] Ophthalmology Ophthalmology Surgery 12/22/11 Rudy Riddle MD [address] [facility] [place] [address] Family Practice 05/07/22
--- OUTSIDE RECORDS SUMMARY | 2023-11-22 10:27 | XMS_ITS ---
Author Organization [facility] Address [address] [place] [address] Care Team Providers Care Receiving Room Clerk Name Role Phone Unavailable Unavailable Unavailable Surgery Details Not on file Complications Check Surgery Details section. Procedure Estimated Blood Loss Check Surgery Details section. Procedure Findings Check Surgery Details section. Procedure Specimens Taken Check Surgery Details section.
--- OUTSIDE RECORDS SUMMARY | 2023-11-22 10:28 | XMS_ITS | Encounter Summary ---
Author Organization [facility] Address [address] [place] [address] Care Team Providers Care Mc Kay Stitcher Name Role Phone Elsewhere, Pcp Primary Care Provider Unavailabl e Encounter Details Date Type Department Care Team (Late st Contact Info) Description 08/16/2023 Orders Only Division of Nephrology and Hypertension, [facility], in [place], [place] [address] [place] [address] Ishan Guardado, JULIÁN, C.N.P., M.S.N. [address] [place] [phone] Social History Tobacco Use Types Packs/Day Years [...] How often do you attend yazdanism or bahai serv ices? Never 03/24/2021 Do [...] 0 10/20/2018 [facility] [...] your living situation today? I have a [facility] place to live 10/26/2022 Education Answer Date Recorded What is the highest level of school you have completed or the highest degree you have received? 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/2021 8:13 PM JEWEL LATHE OPERATOR Gender Identity Male 08/31/2019 2:40 PM CDT Sexual Orientation Straight 08/31/2019 2: 40 PM CDT documented as of this encounter Plan of Treatment Not on file documented as of this encounter Visit Diagnoses Not on filedocumented in this encounter Additional Health Concerns Assessment Noted Time PHQ-9 Depression Total Score: 3 01/04/20 18 10:38 AM CDT documented as of this encounter Care Teams Mc Kay Stitcher Relationship Specialty Start Date End Date Elsewhere, Pcp PCP - General Family Medicine 01/29/20 documented as of this encounter
--- OUTSIDE RECORDS SUMMARY | 2023-11-22 10:28 | XMS_ITS | Encounter Summary ---
Author Organization [facility] Address [address] [place] [address] Care Team Providers Care French Polisher Name Role Phone Elsewhere, Pcp Primary Care Provider Unavailabl e Encounter Details Date Type Department Care Team (Late st Contact Info) Description 09/09/2023 Documentation Division of Nephrology and Hypertension in [place], [place] [address] [place] [address] Haseeb Menon Jr., D.O. [address] [place] [address] Social History Tobacco Use Types Packs/Day Years [...] often do you attend sikh or amish serv ices? 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/2021 8:13 PM PERSONNEL CLERK Gender Identity Male 08/31/2019 2:40 PM [...] documented as of this encounter Care Teams French Polisher Relationship Specialty Start Date End Date Elsewhere, Pcp PCP - General Family Medicine 01/29/20 documented as of this encounter
--- OUTSIDE RECORDS SUMMARY | 2023-11-22 10:28 | XMS_ITS | Encounter Summary ---
Author Organization [facility] Address [address] [place] [address] Care Team Providers Care Instructional Design Consultant Name Role Phone Elsewhere, Pcp Primary Care Provider Unavailabl e Encounter Details Date Type Department Care Team (Late st Contact Info) Description 08/16/2023 Documentation Division of Nephrology and Hypertension, [facility], in [place], [place] [address] [place] [address] Ishan Guardado, JULIÁN, C.N.P., M.S.N. [address] [place] [phone] Social History Tobacco Use Types Packs/Day Years [...] often do you attend judaism or congregational serv ices? Never 03/24/2021 Do [...] PHQ-2 Score 0 10/20/2018 [facility] - Occupational Stress Questionnaire Answer Date Recorded [...] living situation today? I have a [facility] place to live 10/26/2022 Education Answer Date Recorded What is the highest level of school you have completed or the highest degree you have received? 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/2021 8:13 PM CABIN OUTFITTER Gender Identity Male 08/31/2019 2:40 PM CDT [...] documented as of this encounter Care Teams Instructional Design Consultant Relationship Specialty Start Date End Date Elsewhere, Pcp PCP - General Family Medicine 01/29/20 documented as of this encounter
--- OUTSIDE RECORDS SUMMARY | 2023-11-22 10:28 | XMS_ITS | Encounter Summary ---
Author Organization [facility] Address [address] [place] [address] Care Team Providers Care Double Back Operator Name Role Phone Elsewhere, Pcp Primary Care Provider Unavailabl e Reason for Visit * Reason Onset Date Comments Hypertension 09/09/2023 Encounter Details Date Type Department Care Team (Latest Contact Info) Description 09/09/2023 Clinical Communication Division of Nephrology and Hypertension in [place], [place] [address] [place] [address] Haseeb Menon Jr., D.O. [address] [place] [address] Hypertension Social History Tobacco Use Types Packs/Day [...] How often do you attend mormon or worship serv ices? 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
--- OUTSIDE RECORDS SUMMARY | 2023-11-22 10:28 | XMS_ITS | Encounter Summary ---
Author Organization [facility] Address [address] [place] [address] Care Team Providers Care Professor Of Geology Name Role Phone Elsewhere, Pcp Primary Care Provider Unavailabl e Encounter Details Date Type Department Care Team (Late st Contact Info) Description 08/19/2016 Historical Ophthalmology [facility] Chalo Holland Jr., M.D. 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 Gender Identity Male 08/31/2019 2:40 PM [...] IOL OU CDM Reports - EYEGEN Id: [id number] Status: Fnl documented in this encounter Plan of Treatment Not on file documented as of this encounter Visit Diagnoses Not on filedocumented in this encounter Additional Health Concerns Infection Onset Date Last Indicated Resolved Time COVID19 Pending 05/08/2020 05/08/2020 05/08/2020 2 :44 PM SCRATCH FINISHER Assessment Noted Time PHQ-9 Depression Total Score: 7 08/17/19 17 9:01 AM CDT documented as of this encounter Care Teams Professor Of Geology Relationship Specialty Start Date End Date Elsewhere, Pcp PCP - General Family Medicine 01/29/20 documented as of this encounter
--- OUTSIDE RECORDS SUMMARY | 2023-11-22 10:28 | XMS_ITS | Encounter Summary ---
Author Organization [facility] Address [address] [place] [address] Care Team Providers Care Flaker Operator Name Role Phone Elsewhere, Pcp Primary Care Provider Unavailabl e Reason for Visit * Reason Onset Date Comments New Symptoms 08/15/2023 Encounter Details Date Type Department Care Team (Latest Contact Info) Description 08/15/2023 Clinical Communication Division of Nephrology and Hypertension in [place], [place] [address] [place] [address] Haseeb Menon Jr., D.O. [address] [place] [address] New Symptoms Social History Tobacco Use Types [...] How often do you attend tenriism or spiritism serv ices? Never 03/24/2021 Do [...] Answer Date Recorded PHQ-2 Score 0 10/20/2018 [facility] - Occupational Stress Questionnaire [...] Assigned at Male 03/24/2021 8:13 PM DIRECTOR CORPORATE Gender Identity Male 08/31/2019 2:40 PM CDT [...] I spoke with Uriel, Pharmacist, in our [facility]. Per his medication database, a [...] The following references were used: other [facility] Pharmacist . * Telephone Encounter - Chloe Lazo - 08/15/2023 10:43 AM CDT Caller is: : Authorization YES Preferred Communication Method: [phone] Reason for call: Pt's , Siria, called [...] documented as of this encounter Care Teams Flaker Operator Relationship Specialty Start Date End Date Elsewhere, Pcp PCP - General Family Medicine 01/29/20 documented as of this encounter
--- OUTSIDE RECORDS SUMMARY | 2023-11-22 10:28 | XMS_ITS | Encounter Summary ---
Author Organization [facility] Address [address] [place] [address] Care Team Providers Care Gas Fitter Helper Name Role Phone Elsewhere, Pcp Primary Care Provider Unavailabl e Encounter Details Date Type Department Care Team (Late st Contact Info) Description 09/09/2023 Orders Only Division of Nephrology and Hypertension in [place], [place] [address] [place] [address] Haseeb Menon Jr., D.O. [address] [place] [address] Social History Tobacco Use Types Packs/Day Years [...] How often do you attend sikh or mormonism serv ices? Never 03/24/2021 Do [...] Assigned at Male 03/24/2021 8:13 PM DIRECTOR CLIENT SERVICES Gender Identity Male 08/31/2019 2:40 PM CDT Sexual Orientation Straight 08/31/2019 2: 40 PM CDT documented as of this encounter Plan of Treatment Not on file documented as of this encounter Visit Diagnoses Not on filedocumented in this encounter Additional Health Concerns Assessment Noted Time PHQ-9 Depression Total Score: 3 01/04/20 18 10:38 AM CDT documented as of this encounter Care Teams Gas Fitter Helper Relationship Specialty Start Date End Date Elsewhere, Pcp PCP - General Family Medicine 01/29/20 documented as of this encounter
== END 2023-11-22 10:25 | disposition home or self-care (01) ==
LOC: WOUND 10:24
PROVIDERS: PCP Family Medicine; Visit Provider Nurse Practitioner Family
DX: E11.621 Type 2 diabetes mellitus with foot ulcer (principal); L97.514 Non-pressure chronic ulcer of other part of right foot with necrosis of bone; E11.22 Type 2 diabetes mellitus with diabetic chronic kidney disease; N18.5 Chronic kidney disease, stage 5; Z96.41 Presence of insulin pump (external) (internal); Z99.2 Dependence on renal dialysis
CPT/HCPCS: 11042

== ENCOUNTER 2023-11-29 10:52 | Outpatient (CLI) | payer MEDICARE, BC, SELFPAY | END 2023-11-29 10:53 | disposition home or self-care (01) | LOC: WOUND 10:53 | PROVIDERS: PCP Family Medicine; Visit Provider Nurse Practitioner Family | DX: E11.621 Type 2 diabetes mellitus with foot ulcer (principal); L97.512 Non-pressure chronic ulcer of other part of right foot with fat layer exposed; L97.518 Non-pressure chronic ulcer of other part of right foot with other specified severity; E11.22 Type 2 diabetes mellitus with diabetic chronic kidney disease; N18.5 Chronic kidney disease, stage 5; Z96.41 Presence of insulin pump (external) (internal); Z99.2 Dependence on renal dialysis | CPT/HCPCS: 11042; 87070; 87186; G0463 ==

== ENCOUNTER 2023-12-06 10:27 | Outpatient (CLI) | payer MEDICARE, BC, SELFPAY ==
--- OUTSIDE RECORDS SUMMARY | 2023-12-06 10:30 | XMS_ITS | Clinical Summary ---
Author Organization [facility] Address [place], [place] [address] Care Team Providers Care Flask Fitter Name Role Phone Casa Lucia MD Unavailable Unavailable Rudy Riddle MD Unavailable [phone] Rudy Riddle MD Primary Care Provider + Allergies Active Allergy Reactions Criticality Noted Date Comments Gabapentin Other - Describe In Comment Field Medium 08/04/2020 Dizzy, memory issue Dizzy, memory issue Morphine Itching 02/04/2010 After 3 days of use Pregabalin Anaphylaxis,Itching High 02/16/2017 swetesfaye jane Iomzdmb-Rrv-Zye Reductase Inhibitors Myalgia 02/13/2014 Medications Medication Sig [...] Department Care Team Description 09/13/2023 Lab Requisition [facility] [phone] Unknown, Doctor from Last 3 Months Immunizations [...] Comments Blood Pressure 162/87 07/21/2022 9:21 PM BI ARCHITECT Pulse 100 07/21/2022 9:21 PM BI ARCHITECT Temperature 37.1 ??C (98.8 ??F) 07/21/2022 8:51 PM CS T Respiratory Rate 18 07/21/2022 8:51 PM BI ARCHITECT Oxygen Saturation 96% 07/21/2022 9:21 PM BI ARCHITECT Inhaled Oxygen Concentration - - Weight 83.9 kg (185 lb) 07/21/2022 5:35 PM BI ARCHITECT Height 175.3 cm (5' 9) 07/21/2022 5:35 PM BI ARCHITECT Body Mass Index 27.32 07/21/2022 5:35 PM BI ARCHITECT Plan of Treatment Health Maintenance Due Date [...] age 77 05/12/203205/12, 02/04/2006 (Completed outside of [facility]) Tdap Completed 08/16/2016 Pneumococcal series for [...] 0 AM CDT COLONOSCOPY 05/12/2022 8:51 AM BI ARCHITECT LIPID PANEL W REFLEX MEASURED LDL Routine 02/16/2016 8:59 AM CDT Hyperlipidemia, unspecified hyperlipidemia type from Last 3 Months or Most Recently Relevant to Health Maintenance Results * LAB TRACKING EVENT (09/13/2023 11:00 AM CDT) Other (Other) Client Collect / Unknown 09/13/2023 11:00 AM CDT 09/13/2023 9:30 PM CDT Doctor Unknown LAB BILL ONLY [facility]-CENTRAL LABORATORY [address] [place] [address], * PATH TISSUE EXAM (09/13/2023 11:00 AM CDT) Case Report Pathology Report ?Case: [id number] ? Authorizing Provider: ??Unknown, Doctor ?Collected: ? 09/13/2023 1100 ? Ordering Location: ? [facility] ?Received: ?09/14/2023 1033 ? Pathologist: ? Anson Hale MD ? Specimen: ?Right foot ? 09/16/2023 7:47 AM T [employer] LABORATORY-C ENTRAL LABORATORY Final Diagnosis A) FOOT, RIGHT, BIOPSY: 1. Bone with acute and chronic osteomyelitis 09/16/2023 7:47 AM [facility] Comment The specific bone that was biopsied is not provided. 09/16/2023 7:47 AM T [facility] LABORATORY Clinical Information Right foot, assess for osteomyelitis. 09/16/2023 7:47 AM [facility] Gross Description A) Received in formalin, labeled with the patient's name and date of , is a 1.8 x 0.5 x 0.2 cm aggregate of suresh-pink soft tissue fragments admixed with pale-suresh bone. ??The specimen is submitted entirely, in toto in 1 cassette. [facility] 09/14/2023 ?? 09/16/2023 7:47 AM T [facility] ENTRAL LABORATORY Microscopic Description The final diagnosis is based on microscopic examination of appropriate sections of all specimens. 09/16/2023 7:[address] [facility] LABORATORY-C ENTRAL LABORATORY Additional Information Interpreted at [facility], Central Laboratory - [address], [place] [address] 09/16/2023 7:47 AM CDT [facility] ENTRAL LABORATORY Other (Right foot) 09/13/2023 11:00 AM CDT 09/14/2023 10:33 AM CDT Doctor Unknown PATHOLOGY/CYTOLOGY [facility]-CENTRAL LABORATORY [address] [place] [address], * COLONOSCOPY (05/12/2022 8:51 AM BI ARCHITECT) 05/12/2022 8:51 AM BI ARCHITECT Narrative Transcriptions Lukas West MD - 05/12/2022 9:03 AM CST [facility] Patient Name: Onesimo Walton Procedure Date: 05/12/2022 Gender: Male Date of : 1950 Admit Type: Inpatient Procedure: Colonoscopy Proceduralist: Lukas West MD [facility] [place] Indications/Pre-Op Diagnosis: Anemia. Bacteremia Medications: Monitored Anesthesia Care Procedure Description: The patient had risks, benefits and alternatives explained to andgave informed consent. The patient had a stable cardiopulmonary status and judged an adequate candidate for conscious sedation. The [facility]-[id number] endoscope was passed through the anus and [...] Furthermanagement is per the primary team. Call [facility] back if any questions orconcerns. Lukas West [...] 101 <=130 mg/dL 02/16/2016 11:02 AM CDT [facility] PATIENT STATUS FASTING 02/16/2016 11:02 AM CDT [facility] Blood BLOOD SPECIMEN / Unknown Venipuncture / Unknown 02/16/2016 8:59 AM CDT 02/16/2016 8:59 AM CDT Rudy Riddle MD CHEMISTRY [facility] [address] [place] [address] [facility] [address] [place] [address], [place] [phone] from Last 3 Months or Most Recently [...] Preferences, Provider to review later Care Teams Flask Fitter Relationship Specialty Start Date End Date Rudy Riddle MD [address] [place] [address] PCP - General Family Practice 05/25/22 Casa Lucia MD [address] [place] [address] Ophthalmology Ophthalmology Surgery 12/22/11 Rudy Riddle MD [address] [facility] [place] [address] Family Practice 05/07/22
--- OUTSIDE RECORDS SUMMARY | 2023-12-06 10:30 | XMS_ITS ---
Author Organization [facility] Address [address] [place] [address] Care Team Providers Care Mold Puller Name Role Phone Unavailable Unavailable Unavailable Surgery Details Not on file Complications Check Surgery Details section. Procedure Estimated Blood Loss Check Surgery Details section. Procedure Findings Check Surgery Details section. Procedure Specimens Taken Check Surgery Details section.
--- OUTSIDE RECORDS SUMMARY | 2023-12-06 10:30 | XMS_ITS | Continuity of Care Document ---
Author Organization [facility] Address [address] [place] [address] Phone Care Team Providers Care Line Rider Name Role Phone Dot Warner Unavailable Unavailable Medications Medication Instructions Dosage Effective Dates (start - stop) Status Comments AMPICILLIN-SULBACTAM (unknown strength) Not Available - Active MINOCYCLINE HCL (unknown strength) Not Available - Active Procedures Procedure Date Office/Outpatient Visit,Est, Mod 2022 OFFICE/OUTPATIENT VISIT EST Phone Office/Outpatient Visit,Est, Mod 2022 Followup Hospital Care, [facility] 2021 Advance Directives Directive Yes / No Effective Date File Name No Information Encounters Encounter Description Practice Location Reason(s) For Visit Diagnoses Date Provider Providers Copied on Encounter [facility], [address], [place], [place], [id number] , [place] tel: [phone] [facility] - [facility] No Information 3 Kindra Chris. [facility], [address] [place] [address] [address], [place], [address], [place]. tel: [phone] Office/Outpa tient Visit,Est, Mod [facility], [address], [place], [place], [id number] , [place] tel: [phone] [facility] - [facility] Spinal stenosis, lumbar region with neurogenic claudication 3 Camille Bob. [facility], [address] [place] [address], [address], [place], [address], [place]. tel: [phone] Referring Provider: Lisbeth Thomas, [facility] [address], [address], [place], [address]. [phone] OFFICE/OUTPA TIENT VISIT EST Phone [facility], [address], [place], [place], [id number] , [place] [phone] [facility] [place] No Information 3 Obrien Lisbeth. [facility], [address], [address], [place], [address], [place]. [phone] Referring Provider: Lisbeth Thomas, [facility] [address], [address], [place], [address]. [phone] Office/Outpa tient Visit,Est, Mod [facility], [address], [place], [place], [id number] , [place] [phone] [facility] Low back pain, unspecifiedOther specified soft tissue disorders 3 Obrien Lisbeth. [facility], [address], [address], [place], [address], [place]. [phone] Referring Provider: Lisbeth Thomas, [facility] [address], [address], [place], [address]. [phone] Followup Hospital Care, Moderate [facility], [address], [place], [place], [id number] , [place] [phone] [facility] No Information 2 Dhaval Velez. [facility], [address], [address], [place], [address], [place]. [phone] Referring Provider: Rudy Riddle, [facility] [address], [address]. tel:[phone] Family History Family Member Type Diagnosis Age At Onset No Information Payers Payer name Insurance type Covered alliance party ID Authorjaimealivia durant([place]) [place] [id number] Medicare [facility] [id number] Social History Type Description Quantity Date [...]
--- OUTSIDE RECORDS SUMMARY | 2023-12-06 10:30 | XMS_ITS | Referral Summary ---
Author Organization [facility] Address [address] [place] [address] Care Team Providers Care Advice Line Rn Name Role Phone Elsewhere, Pcp Primary Care Provider Unavailabl e Source Comments Patient records contain information from all sites at [facility]. For routine questions regarding patient records, call [phone] during business hours, M-F 8:00 AM - 5:00 PM Central Time. Record requests for emergency care only can be directed to [phone] at any time.[facility] Encounters Date Type Department Care Team Description 09/13/2023 Documentation Division of Nephrology and Hypertension in [place], [place] [address] [place] [address] Haseeb Menon Jr., D.O. 09/13/2023 Orders Only Division of Nephrology and Hypertension in [place], [place] [address] [place] [address] Haseeb Menon Jr., D.O. Atherosclerosis Of [place] Arteries Of Extremities With Intermittent Claudication Right Leg (HCC) (Primary Dx); Diabetes Mellitus Type 2 With Other Circulatory Complication (HCC); Anemia Of Chronic Renal Disease; Sleep Apnea 09/09/2023 Documentation Division of Nephrology and Hypertension in [place], [place] [address] [place] [address] Haseeb Menon Jr., D.O. 09/09/2023 Orders Only Division of Nephrology and Hypertension in [place], [place] [address] [place] [address] Haseeb Menon Jr., D.O. 09/09/2023 Clinical Communication Division of Nephrology and Hypertension in [place], [place] [address] [place] [address] Haseeb Menon Jr., D.O. 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 01/14/2022 Active allopurinoL (ZYLOPRIM) 100 mg tablet [...] 04/21/2018 Restless Leg Syndrome 01/12/2018 Atherosclerosis Of [place] Ar teries Of Extremities With Intermittent Claudication Right Leg 08/08/2017 Hyperlipidemia 07/22/2017 Ulcer Leg Left 04/19/2017 Ulcer Toe Left 04/19/2017 Atherosclerosis Of [place] Ar teries Of Left Leg With Ulceration Of Unspecified Site 04/19/2017 Peripheral Arterial Disease 02/16/2017 Hypertension NOS 02/16/2017 Hypertension And Chronic Kidney Disease Stage 4 09/23/2016 Overview (10/05/2016): Hypertension (HTN) And CKD Stage 1-4 Half-Way Use Of Insulin Active 09/23/2016 Overview (10/05/2016): 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 Body Location - Other. Vascular. Device Status Text - [id number]. Ocular Lens-10/29/2007 Implanted:10/28 by Nato Dougherty, JULIÁN, C.N.P., R.N. (Quantity not on file) Ocular Lens Bilateral: Eye Description:Cataract extract ion and insertion of intraocular lens 06/22/2016 09:27 - NATO DOUGHERTY APRN RADIO INSTALLER AUTOMOBILE bilateral Conversions - Default Historical Implant Device [...] 6mm X 29mm X 135cm - Flores [id number] Implanted:Qty: 1 on 03/04/2017 Vascular Graft Dalton Description:Device Manufactu rer - [employer]. Device Status Text - [id number]. Stent Vbx [id number] - Flores [id number] Implanted:Qty: 1 on 03/04/2017 Vascular Graft Other/Legacy - See Implant Description Dalton Description:Device Manufactu rer - [employer] Body Location - Other. n/a. Device Status Text - [id number]. Stent Vbx [id number] - Flores [id number] Implanted:Qty: 1 on 03/04/2017 Vascular Graft Other/Legacy - See Implant Description Dalton Description:Device Manufactu rer - [employer] Body Location - Other. n/a. Device Status Text - [id number]. Stent Zilver Ptx 6mm X 40mm - Flores [id number] Implanted:Qty: 1 on 04/04/2017 Vascular Stent Other/Legacy - See Implant Description [employer] Description:Device Manufactu rer - [employer]. Body Location - Other. Left. Device Status Text - [id number]. Stent Zilver Ptx 6mm X 60mm - Flores [id number] Implanted:Qty: 1 on 04/04/2017 Vascular Stent Other/Legacy - See Implant Description [employer] Description:Device Manufactu rer - [employer]. Body Location - Other. Left. Device Status Text - [id number]. Stent Zilver Ptx 6mm X 80mm - Flores [id number] Implanted:Qty: 1 on 08/31/2017 Vascular Stent Right: Other/Legacy - See Implant Description [employer] / [id number] / Description:Device Manufactu rer - [employer]. Body Location - Right. Device Status Text - [id number]. Stent Zilver Ptx 6mm X 40mm - Flores [id number] Implanted:Qty: 1 on 08/31/2017 Vascular Stent Right: Other/Legacy - See Implant Description [employer] / [id number] / Description:Device Manufactu rer - [employer]. Body Location - Right. Device Status Text - [id number]. Stnt Innova Otw [id number] - [id number] Implanted:Qty: 1 on 04/18/2018 by Kemar Velásquez M.B.BFeiS. at [facility] Vascular Stent [employer] 05/23/2020 [id number] / / [id number] [facility] Madi Huynh [id number] - [id number] Implanted:Qty: 1 on 05/11/2019 by Kemar Velásquez M.B.B.S. at [facility] Vascular Stent Left: Leg [employer] 09/05/2020 [id number] / / [id number] Procedures Procedure Name Priority Date/Time Associated Diagnosis [...] Renal Disease Acidosis Metabolic Hyperchloremic Atherosclerosis Of [place] Arteries Of Extremities With Intermittent Claudication Right Leg (HCC) LIPID PANEL, S Routine 02/10/2021 8:27 AM CDT Peripheral Arterial Disease (HCC) Diabetes Mellitus Type 2 With Other Circulatory Complication Hyperglycemic (HCC) 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) CT ABDOMEN PELVIS ANGIOGRAM WITH IV CONTRAST RAD - Routine (most inpatients and all outpatients) 03/15/2018 8:48 AM CDT Peripheral Arterial Disease (HCC) from Last 3 Months or Most Recently [...] 11:01 AM CDT Narrative [facility] - 02/17/2023 4:02 PM CDT Specimen Information: Specimen ID: [id number] Specimen Type: Blood Specimen Collection Start Date: 02/17/2023 ??9:35 AM Specimen Received Date: 02/17/2023 11:01 AM Specimen ID: [id number] Specimen Type: Blood Specimen Collection Start Date: 02/17/2023 ??9:35 AM Specimen Received Date: 02/17/2023 ??3:35 PM Haseeb Menon Jr., D.O. LAB BLOOD AD D-ON [facility] [address] [place] [address], [facility] OWAT [facility] in [place] [address] [place] [address] AUST [facility] - [facility] [address] [place] [address] * HCV Ab Scrn w/Reflex to HCV PCR, Serum (02/17/2023 9:35 AM CDT) HCV Ab Screen, S Negative Negative 02/18/20 3:35 PM CDT MKTO Comment: Biotin has been identified by the solutions analyst as a potential interfering substance. Higher concentrations [...] 3:35 PM CDT Specimen Information: Specimen ID: [id number] Specimen Type: Blood Specimen Collection Start Date: 02/17/2023 ??9:35 AM Specimen Received Date: 02/17/2023 ??2:20 PM Specimen ID: [id number] Specimen Type: Blood Specimen Collection Start Date: 02/17/2023 ??9:35 AM Specimen Received Date: 02/17/2023 ??2:16 PM Haseeb Menon Jr., D.O. LAB MICROBIO LOGY - BLOOD ORDERABLES Performing Organization Address [facility]/RUST Co de Phone Number [facility] [address] [place] [address], [facility] MKTO [facility] in [place] [address] [place] [address] * (ABNORMAL) Albumin, Random, Urine (02/17/2023 9:26 AM CDT) Microalbumin 895.0 mg/L 02/17/2023 1:53 PM CDT OWAT Creatinine 42 mg/dL 02/17/2023 12:50 PM CDT OWAT Albumin/Creatinin e Ratio 2131(H) <17 mg/g 02/17/2023 1:53 PM CDT OWAT Urine (Urine, Voided) 02/17/2023 9:26 AM CDT 02/17/2023 11:00 AM CDT Haseeb Menon Jr., D.O. LAB URINE OR DERABLES Performing Organization Address [facility]/RUST Co de Phone Number [facility] [address] [place] [address], [facility] OWAT [facility] in [place] [address], [place] [address] * (ABNORMAL) Hemoglobin A1c (11/25/2022 2:09 PM [...] LAB BLOOD AD D-ON Performing Organization Address City/[facility]/ZIP Co de Phone Number [facility] [address], [place] [address], [facility] OWAT [facility] in [place] [address] [place] [address] * (ABNORMAL) Lipid Panel (02/10/2021 8:27 AM [...] CDT Kemar Reyes LAB BLOOD ADD-ON [facility] [address] [place] [address], [facility] [address] [place] [address] * CT Abdomen Pelvis Angiogram with IV Contrast (03/15/2018 8:48 AM CDT) Anatomical Region Laterality Modality Abdomen, Pelvis, Cardiovascu lar RST LOS, Abdominal ARZ LOS, Vascular Interventional ARZ LOS, Vascular Interventional FLA LOS, Abdominal FLA LOS N/A Computed Johnathon ography 03/15/2018 10:4 9 AM CDT Impressions 03/15/2018 12:31 PM CDT IMPRESSION: 1. ??High-grade stenosis distal to the left external iliac artery stent. 2. ??Stents themselves are widely patent (left common iliac, left external iliac, distal right superficial femoral, distal left superficial femoral). 3. ??Right external iliac moderate stenosis. 4. ??Left common femoral artery moderate stenosis. Narrative 03/15/2018 12:31 PM CDT EXAM: ??CT ABDOMEN PELVIS ANGIOGRAM WITH IV CONTRAST COMPARISON: ??Ultrasound 02/08/2018. CTA abdomen and pelvis with 02/18/2017. IR angiogram 08/31/2017. ? FINDINGS: ? VASCULAR FINDINGS: ABDOMINAL AORTA: Nonaneurysmal abdominal aorta with calcified and noncalcified plaque most prominent distally. RENAL ARTERIES: Right renal arteries: ??Single right renal artery. Widely patent. Left renal arteries: ??Single left renal artery. Widely patent with calcified plaque at the origin. VISCERAL ARTERIES: Celiac artery: ??Widely patent. Superior mesenteric artery: ??Moderate stenosis proximal superior mesenteric artery, best seen on image 5, image 62 and series 6, image 91. Inferior mesenteric artery: ??Atherosclerotic plaque at the origin of the inferior mesenteric artery appears to cause moderate stenosis.. ILIAC ARTERIES: Right common iliac artery: ??Calcified plaque with mild stenosis Right internal iliac artery: ??Calcified plaque at the origin with moderate stenosis. Right external iliac artery: ??Scattered atheromatous plaque with moderate stenosis distally. Left common iliac artery: ??Stent is widely patent. Left internal iliac artery: ??Widely patent. Left external iliac artery: ??Stent is widely patent. High-grade stenosis just distal to the stent is new since 03/04/2017 and likely increased from 08/31/2017. RIGHT LEG (to distal thigh): Right common femoral artery: ??Atherosclerotic plaque causes mild stenosis. Right deep femoral artery: ??Widely patent. Right superficial femoral artery: ??Widely patent with patent stent distally. ?? LEFT LEG (to distal thigh): Left common femoral artery: ??Atherosclerotic plaque causes moderate stenosis. Left deep femoral artery: ??Patent without significant stenosis. Left superficial femoral artery: ??Moderate stenosis proximally. ??Patent distal superficial femoral artery stent. ADDITIONAL FINDINGS: Pancreatic atrophy. Procedure Note Bob Liu M.D. - 03/15/2018 EXAM: CT ABDOMEN PELVIS ANGIOGRAM WITH IV CONTRAST COMPARISON: Ultrasound 02/08/2018. CTA abdomen and pelvis with 02/18/2017.IR angiogram 08/31/2017. FINDINGS: VASCULAR FINDINGS: ABDOMINAL AORTA: Nonaneurysmal abdominal aorta with calcified and noncalcified plaquemost prominent distally. RENAL ARTERIES: Right renal arteries: Single right renal artery. Widely patent. Left renal arteries: Single left renal artery. Widely patent withcalcified plaque at the origin. VISCERAL ARTERIES: Celiac artery: Widely patent. Superior mesenteric artery: Moderate stenosis proximal superiormesenteric artery, best seen on image 5, image 62 and series 6, image 91. Inferior mesenteric artery: Atherosclerotic plaque at the origin of the inferior mesenteric artery appears to cause moderate stenosis.. ILIAC ARTERIES: Right common iliac artery: Calcified plaque with mild stenosis Right internal iliac artery: Calcified plaque at the origin withmoderate stenosis. Right external iliac artery: Scattered atheromatous plaque withmoderate stenosis distally. Left common iliac artery: Stent is widely patent. Left internal iliac artery: Widely patent. Left external iliac artery: Stent is widely patent. High-grade stenosisjust distal to the stent is new since 03/04/2017 and likely increased from08/31/2017. RIGHT LEG (to distal thigh): Right common femoral artery: Atherosclerotic plaque causes mildstenosis. Right deep femoral artery: Widely patent. Right superficial femoral artery: Widely patent with patent stentdistally. LEFT LEG (to distal thigh): Left common femoral artery: Atherosclerotic plaque causes moderatestenosis. Left deep femoral artery: Patent without significant stenosis. Left superficial femoral artery: Moderate stenosis proximally. Patentdistal superficial femoral artery stent. ADDITIONAL FINDINGS: Pancreatic atrophy. IMPRESSION: 1. High-grade stenosis distal to the left external iliac artery stent. 2. Stents themselves are widely patent (left common iliac, left externaliliac, distal right superficial femoral, distal left superficial femoral). 3. Right external iliac moderate stenosis. 4. Left common femoral artery moderate stenosis. Kemar Reyes IMSophie CT PROCEDURES from Last 3 Months or Most Recently Relevant to Health Maintenance Advance Directives For more information, please contact: [phone] * Full Code (Latest Code Status on [...] Answer Comments Full Code: Discussed Care Teams Advice Line Rn Relationship Specialty Start Date End Date Elsewhere, Pcp PCP - General Family Medicine 01/29/20
--- OUTSIDE RECORDS SUMMARY | 2023-12-06 10:30 | XMS_ITS | Clinical Summary ---
Author Organization [facility] Address [address] [place] [address] Care Team Providers Care Net Architect Name Role Phone Elsewhere, Pcp Primary Care Provider Unavailabl e Source Comments Patient records contain information from all sites at [facility]. For routine questions regarding patient records, call [phone] during business hours, M-F 8:00 AM - 5:00 PM Central Time. 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 01/14/2022 Active allopurinoL (ZYLOPRIM) 100 mg tablet [...] 04/21/2018 Restless Leg Syndrome 01/12/2018 Atherosclerosis Of [place] Ar teries Of Extremities With Intermittent Claudication Right Leg 08/08/2017 Hyperlipidemia 07/22/2017 Ulcer Leg Left 04/19/2017 Ulcer Toe Left 04/19/2017 Atherosclerosis Of [place] Ar teries Of Left Leg With Ulceration Of Unspecified Site 04/19/2017 Peripheral Arterial Disease 02/16/2017 Hypertension NOS 02/16/2017 Hypertension And Chronic Kidney Disease Stage 4 09/23/2016 Overview (10/05/2016): Hypertension (HTN) And CKD Stage 1-4 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 09/13/2023 Orders Only Division of Nephrology and Hypertension in [place], [place] [address] [place] [phone] Haseeb Menon Jr., D.O. Atherosclerosis Of [place] Arteries Of Extremities With Intermittent Claudication Right Leg (HCC) (Primary Dx); Diabetes Mellitus Type 2 With Other Circulatory Complication (HCC); Anemia Of Chronic Renal Disease; Sleep Apnea 09/09/2023 Documentation Division of Nephrology and Hypertension in [place], [place] [address] [place] [phone] Haseeb Menon Jr., D.O. 09/09/2023 Orders Only Division of Nephrology and Hypertension in [place], [place] [address] [place] [phone] Haseeb Menon Jr., D.O. 09/09/2023 Clinical Communication Division of Nephrology and Hypertension in [address] [phone] Haseeb Menon Jr., D.O. Hypertension from Last 3 Months Immunizations [...] How often do you attend episcopalian or baptist serv ices? 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 Body Location - Other. Vascular. Device Status Text - [id number]. Ocular Lens-10/29/2007 Implanted:10/28 by Nato Dougherty, JULIÁN, C.N.P., R.N. 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 Device Status Text - [id number]. Stent Vbx [id number] - Flores [id number] Implanted:Qty: 1 on 03/04/2017 Vascular Graft Other/Legacy - See Implant Description [place] Description:Device Manufactu rer - W [employer] Body Location - Other. n/a. Device Status Text - [id number]. Stent Vbx [id number] - Flores [id number] Implanted:Qty: 1 on 03/04/2017 Vascular Graft Other/Legacy - See Implant Description [place] Description:Device Manufactu rer - W L [employer] Body Location - Other. n/a. Device Status Text - [id number]. Stent Zilver Ptx 6mm X 40mm - Flores [id number] Implanted:Qty: 1 on 04/04/2017 Vascular Stent Other/Legacy - See Implant Description [employer] Medical Inc. Description:Device Manufactu rer - Alianza. Body Location - Other. Left. Device Status Text - [id number]. Stent Zilver Ptx 6mm X 60mm - Flores [id number] Implanted:Qty: 1 on 04/04/2017 Vascular Stent Other/Legacy - See Implant Description Cook [employer] Inc. Description:Device Manufactu Rexter - [employer] Medical. Body Location - Other. Left. Device Status Text - [id number]. Stent Zilver Ptx 6mm X 80mm - Flores [id number] Implanted:Qty: 1 on 08/31/2017 Vascular Stent Right: Other/Legacy - See Implant Description Cook [employer] Inc. / [id number] / Description:Device Manufactu Rexter - [employer] Medical. Body Location - Right. Device Status Text - [id number]. Stent Zilver Ptx 6mm X 40mm - Flores [id number] Implanted:Qty: 1 on 08/31/2017 Vascular Stent Right: Other/Legacy - See Implant Description Cook [employer] Inc. / [id number] / Description:Device Manufactu Talkspace. Body Location - Right. Device Status Text - [id number]. Stnt Innova Otw [id number] - [id number] Implanted:Qty: 1 on 04/18/2018 by Kemar Velásquez M.B.B.S. at [facility] Vascular Stent [employer] 05/23/2020 [id number] / / [id number] Stnt Innova Otw [id number] - [id number] Implanted:Qty: 1 on 05/11/2019 by Kemar Velásquez M.B.B.S. at [facility] Vascular Stent Left: Leg [employer] 09/05/2020 [id number] / / [id number] Procedures Procedure Name Priority Date/Time Associated Diagnosis [...] Acidosis Metabolic Hyperchloremic Atherosclerosis Of [place] Arteries Of Extremities With Intermittent Claudication Right [...] Function Panel (02/17/2023 9:35 AM CDT) Pathologist [facility] Potassium, P 4.4 3.6 - 5.2 mmol/L [...] 02/17/2023 11:01 AM CDT Narrative [facility] - 02/17/2023 4:02 PM CDT Specimen Information: Specimen ID: [id number] Specimen Type: Blood Specimen Collection Start Date: 02/17/2023 ??9:35 AM Specimen Received Date: 02/17/2023 11:01 AM Specimen ID: [id number] Specimen Type: Blood Specimen Collection Start Date: 02/17/2023 ??9:35 AM Specimen Received Date: 02/17/2023 ??3:35 PM Estiven He Jr.OFei LAB BLOOD AD D-ON [facility] [address] [place] [address], [facility] in [place] [address] [place] [address] [facility] [address] [place] [address] * HCV Ab Scrn w/Reflex to HCV PCR, Serum (02/17/2023 9:35 AM CDT) HCV Ab Screen, S Negative Negative 02/18/20 3:35 PM CDT [facility] Comment: Biotin has been identified by the lunchroom worker as a potential interfering substance. Higher concentrations of biotin may be found in multivitamins, hair/nail supplements, and workout supplements. If the result does not match clinical observations, repeat testing after patient refrains from the use of supplements for at least 12 hours. Blood (Blood, Venous) 02/17/2023 9:35 AM CDT 02/17/2023 2:20 PM CDT Narrative [facility] - 02/17/2023 3:35 PM CDT Specimen Information: Specimen ID: [id number] Specimen Type: Blood Specimen Collection Start Date: 02/17/2023 ??9:35 AM Specimen Received Date: 02/17/2023 ??2:20 PM Specimen ID: [id number] Specimen Type: Blood Specimen Collection Start Date: 02/17/2023 ??9:35 AM Specimen Received Date: 02/17/2023 ??2:16 PM Haseeb Menon Jr., D.O. LAB MICROBIO LOGY - BLOOD ORDERABLES Performing Organization Address City/State/[facility] Co de Phone Number [facility] [address] [place] [address], [facility] in [place] [address] [place] [phone] * (ABNORMAL) Albumin, Random, Urine (02/17/2023 9:26 AM CDT) Microalbumin 895.0 mg/L 02/17/2023 1:53 PM CDT [facility] Creatinine 42 mg/dL 02/17/2023 12:50 PM CDT [facility] Albumin/Creatinin e Ratio 2131(H) <17 mg/g 02/17/2023 1:53 PM CDT [facility] Urine (Urine, Voided) 02/17/2023 9:26 AM CDT 02/17/2023 11:00 AM CDT Haseeb Menon Jr., D.O. LAB URINE OR DERABLES [facility] [address] [place] [address], [facility] in [place] [address] [place] [address] * (ABNORMAL) Hemoglobin A1c (11/25/2022 2:09 PM CDT) Hemoglobin A1c, B 6.2(H) 4.2 - 5.6 % 11/25/2022 4:40 PM CDT [facility] Comment: Hemoglobin A1c values of 5.7-6.4 percent indicate an increased risk for developing diabetes mellitus. In diabetic patients, HbA1c goals should be discussed with healthcare provider. Blood (Blood, Venous) 11/25/2022 2:09 PM CDT 11/25/2022 3:35 PM CDT Haseeb Menon Jr., D.O. LAB BLOOD AD D-ON Performing Organization Address [facility] Co de Phone Number [facility] [address] [place] [address], [facility] in [place] [address] [place] [phone] * (ABNORMAL) Lipid Panel (02/10/2021 8:27 AM [...] Reyes LAB BLOOD ADD-ON [facility] [address] [place] [address], [place] [facility] [address] [place] [address] * CT Abdomen Pelvis Angiogram with IV [...] common femoral artery moderate stenosis. Kemar Reyes IMG CT PROCEDURES from Last 3 Months or Most Recently Relevant to Health Maintenance Advance Directives For more information, please contact: [phone] * Full Code (Latest Code Status on [...] Answer Comments Full Code: Discussed Care Teams Net Architect Relationship Specialty Start Date End Date Elsewhere, Pcp PCP - General Family Medicine 01/29/20
--- OUTSIDE RECORDS SUMMARY | 2023-12-06 10:31 | XMS_ITS | Encounter Summary ---
Author Organization [facility] Address [address] [place] [address] Care Team Providers Care Candle Pourer Name Role Phone Elsewhere, Pcp Primary Care Provider Unavailabl e Reason for Visit * Reason Onset Date Comments New Symptoms 08/15/2023 Encounter Details Date Type Department Care Team (Latest Contact Info) Description 08/15/2023 Clinical Communication Division of Nephrology and Hypertension in [place], [place] [address] [place] [address] Haseeb Menon Jr., D.O. [address] [place] [address] New Symptoms Social History Tobacco Use Types [...] How often do you attend temple or mormonism serv ices? Never 03/24/2021 Do [...] situation today? I have a [facility] place to live 10/26/2022 Education Answer Date Recorded What is the highest level of school you have completed or the highest degree you have received? 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/2021 8:13 PM SPORTS ACTIVITIES FOUL JUDGE Gender Identity Male 08/31/2019 2:40 PM CDT Sexual Orientation Straight 08/31/2019 2: 40 PM CDT documented as of this encounter Miscellaneous Notes * Telephone Encounter - Sabra Sanchez, R.N. - 08/15/2023 3:20 PM CDT SUBJECTIVE CHIEF [...] episode on 08/08 (the same day the Frifabiola visited with Dr. Menon), during which she [...] I spoke with Uriel, Pharmacist, in our [facility]. Per his medication database, [...] following references were used: other [facility] Pharmacist . * Telephone Encounter - Chloe Lazo - 08/15/2023 10:43 AM CDT Caller is: : Authorization YES Preferred Communication Method: [phone] Reason for call: Pt's , Siria, called [...] documented as of this encounter Care Teams Candle Pourer Relationship Specialty Start Date End Date Elsewhere, Pcp PCP - General Family Medicine 01/29/20 documented as of this encounter
--- OUTSIDE RECORDS SUMMARY | 2023-12-06 10:31 | XMS_ITS | Encounter Summary ---
Author Organization [facility] Address [address] [place] [address] Care Team Providers Care Lead Sharepoint Developer Name Role Phone Elsewhere, Pcp Primary Care Provider Unavailabl e Encounter Details Date Type Department Care Team (Late st Contact Info) Description 08/19/2016 Historical Ophthalmology [facility] Chalo Holland Jr., M.D. [address] [place] [address] Social History Tobacco Use Types Packs/Day Years Used Date Smoking Tobacco: Every Day Sex and Gender Information Value Date Recorded Sex Assigned at Male 03/24/2021 8:13 PM CAN PILER Gender Identity Male 08/31/2019 2:40 PM CDT [...] IOL OU CDM Reports - EYEGEN Id: [id number] Status: Fnl documented in this encounter Plan of Treatment Not on file documented as of this encounter Visit Diagnoses Not on filedocumented in this encounter Additional Health Concerns Infection Onset Date Last Indicated Resolved Time COVID19 Pending 05/08/2020 05/08/2020 05/08/2020 2 :44 PM CAN PILER Assessment Noted Time PHQ-9 Depression Total Score: 7 08/17/19 17 9:01 AM CDT documented as of this encounter Care Teams Lead Sharepoint Developer Relationship Specialty Start Date End Date Elsewhere, Pcp PCP - General Family Medicine 01/29/20 documented as of this encounter
--- OUTSIDE RECORDS SUMMARY | 2023-12-06 10:31 | XMS_ITS | Encounter Summary ---
Author Organization [facility] Address [address] [place] [address] Care Team Providers Care Brass Cleaner Name Role Phone Elsewhere, Pcp Primary Care Provider Unavailabl e Encounter Details Date Type Department Care Team (Late st Contact Info) Description 08/16/2023 Orders Only Division of Nephrology and Hypertension, [facility], in [place], [place] [address] [place] [phone] Ishan Guardado, JULIÁN, C.N.P., M.S.N. [address] [place] [phone] Social History Tobacco Use Types Packs/Day Years [...] How often do you attend shinto or taoism serv ices? 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
--- OUTSIDE RECORDS SUMMARY | 2023-12-06 10:31 | XMS_ITS | Encounter Summary ---
Author Organization [facility] Address [address] [place] [address] Care Team Providers Care Cheese Cooker Name Role Phone Elsewhere, Pcp Primary Care Provider Unavailabl e Encounter Details Date Type Department Care Team (Late st Contact Info) Description 09/09/2023 Documentation Division of Nephrology and Hypertension in [place], [place] [address] [place] [address] Haseeb Menon Jr., D.O. [address] [place] [address] Social History Tobacco Use Types Packs/Day Years [...] How often do you attend presybeterian or roman catholic serv ices? Never 03/24/2021 [...] living situation today? I have a [facility] place to live 10/26/2022 Education Answer Date Recorded What is the highest level of school you have completed or the highest degree you have received? 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/2021 8:13 PM PLAN MANAGER Gender Identity Male 08/31/2019 2:40 PM [...] documented as of this encounter Care Teams Cheese Cooker Relationship Specialty Start Date End Date Elsewhere, Pcp PCP - General Family Medicine 01/29/20 documented as of this encounter
--- OUTSIDE RECORDS SUMMARY | 2023-12-06 10:31 | XMS_ITS | Encounter Summary ---
Author Organization [facility] Address [address] [place] [address] Care Team Providers Care Dehydrogenation Converter Helper Name Role Phone Elsewhere, Pcp Primary Care Provider Unavailabl e Reason for Visit * Reason Onset Date Comments Hypertension 09/09/2023 Encounter Details Date Type Department Care Team (Latest Contact Info) Description 09/09/2023 Clinical Communication Division of Nephrology and Hypertension in [place], [place] [address] [place] [address] Haseeb Menon Jr., D.O. [address] [place] [address] Hypertension Social History Tobacco Use Types Packs/Day [...] often do you attend yazdanism or nondenominational serv ices? Never 03/24/2021 Do [...] your living situation today? I have a [facility] place to live 10/26/2022 Education Answer Date Recorded What is the highest level of school you have completed or the highest degree you have received? 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
--- OUTSIDE RECORDS SUMMARY | 2023-12-06 10:31 | XMS_ITS | Encounter Summary ---
Author Organization [facility] Address [address] [place] [address] Care Team Providers Care Director Field Services Name Role Phone Elsewhere, Pcp Primary Care Provider Unavailabl e Encounter Details Date Type Department Care Team (Late st Contact Info) Description 09/09/2023 Orders Only Division of Nephrology and Hypertension in [place], [place] [address] [place] [address] Haseeb Menon Jr., D.O. [address] [place] [address] Social History Tobacco Use Types Packs/Day Years [...] often do you attend jehovah's witness or voodoo serv ices? 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/2021 8:13 PM CABINET PROFESSIONAL Gender Identity Male 08/31/2019 2:40 PM CDT Sexual Orientation Straight 08/31/2019 2: 40 PM CDT documented as of this encounter Plan of Treatment Not on file documented as of this encounter Visit Diagnoses Not on filedocumented in this encounter Additional Health Concerns Assessment Noted Time PHQ-9 Depression Total Score: 3 01/04/20 18 10:38 AM CDT documented as of this encounter Care Teams Director Field Services Relationship Specialty Start Date End Date Elsewhere, Pcp PCP - General Family Medicine 01/29/20 documented as of this encounter
--- OUTSIDE RECORDS SUMMARY | 2023-12-06 10:31 | XMS_ITS | Encounter Summary ---
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) Diabetes Mellitus Type 2 With Other Circulatory Complication (HCC) Anemia Of Chronic Renal Disease Sleep Apnea Haseeb Menon Jr., D.OFei [address] [place] [address] [facility] Referral ID Status Reason Start Date Expiration Date Visits Requested Visits Authorized [id number] Authorized Specialty Services Required 09/13/2023 03/14/2025 1 1 Encounter Details Date Type Department Care Team (Latest Contact Info) Description 09/13/2023 Orders Only Division of Nephrology and Hypertension in [place], [place] [address] [place] [address] Haseeb Menon Jr., D.OFei [address] [place] [phone] Atherosclerosis Of Hughes Arteries Of Extremities With Intermittent Claudication Right [...] How often do you attend tenriism or pentecostal serv ices? Never 03/24/2021 Do [...] Date Recorded PHQ-2 Score 0 10/20/2018 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) Diabetes Mellitus Type 2 With Other Circulatory Complication (HCC) Anemia Of Chronic Renal Disease Sleep Apnea Expected: 09/13/2023, Expires: 12/12/2024 documented as of this encounter Visit Diagnoses Diagnosis Atherosclerosis Of [place] Arteries Of Extremities With Intermittent Claudication Right Leg (HCC)- Primary Diabetes Mellitus Type 2 With Other Circulatory Complication (HCC) Anemia Of Chronic Renal Disease Sleep Apnea documented in this encounter Additional Health Concerns Assessment Noted Time PHQ-9 Depression Total Score: 3 01/04/20 18 10:38 AM CDT documented as of this encounter Care Teams Hotel Assistant Manager Relationship Specialty Start Date End Date Elsewhere, Pcp PCP - General Family Medicine 01/29/20 documented as of this encounter
--- OUTSIDE RECORDS SUMMARY | 2023-12-06 10:31 | XMS_ITS | Encounter Summary ---
Author Organization [facility] Address [address] [place] [address] Care Team Providers Care Laser Systems Engineer Name Role Phone Elsewhere, Pcp Primary Care Provider Unavailabl e Encounter Details Date Type Department Care Team (Late st Contact Info) Description 09/13/2023 Documentation Division of Nephrology and Hypertension in [place], [place] [address] [place] [address] Haseeb Menon Jr., D.O. [address] [place] [address] Social History Tobacco Use Types Packs/Day Years [...] How often do you attend tenriism or yazidism serv ices? 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 - 09/13/2023 9:30 AM CDT Care coordination-dialysis visit: Please see the sure scripts tab, in Care everywhere or the documents tab regarding his full dialysis notes from the [facility] Dialysis home program. Fair amount [...] documented as of this encounter Care Teams Laser Systems Engineer Relationship Specialty Start Date End Date Elsewhere, Pcp PCP - General Family Medicine 01/29/20 documented as of this encounter
== END 2023-12-06 10:28 | disposition home or self-care (01) ==
LOC: WOUND 10:28
PROVIDERS: PCP Family Medicine; Visit Provider Nurse Practitioner Family
DX: E11.621 Type 2 diabetes mellitus with foot ulcer (principal); L97.512 Non-pressure chronic ulcer of other part of right foot with fat layer exposed; E11.22 Type 2 diabetes mellitus with diabetic chronic kidney disease; N18.5 Chronic kidney disease, stage 5; I89.0 Lymphedema, not elsewhere classified; Z96.41 Presence of insulin pump (external) (internal); Z99.2 Dependence on renal dialysis
CPT/HCPCS: 11042

== ENCOUNTER 2023-12-13 09:52 | Outpatient (CLI) | payer MEDICARE, BC, SELFPAY ==
--- OUTSIDE RECORDS SUMMARY | 2023-12-13 09:56 | XMS_ITS | Clinical Summary ---
Author Organization [facility] Address [address] [place] [address] Care Team Providers Care Technical Publications Writer Name Role Phone Elsewhere, Pcp Primary Care Provider Unavailabl e Source Comments Patient records contain information from all sites at [facility]. For routine questions regarding patient records, call [phone] during business hours, M-F 8:00 AM - 5:00 PM Central Time. Record requests for emergency care only can be directed to [phone] at any time.[facility] Allergies Active Allergy Reactions Criticality Noted Date Comments Gabapentin Other (see comments) Medium 08/04/2020 Dizzy, memory issue Morphine Itching,Rash Medium 02/14/2012 itchy Pregabalin Anaphylaxis High 02/16/2017 swell Mvtyeod-Adi-Cpv Reductase Inhibitors Myalgia Low 02/13/2014 Medications Medication [...] ONE CAPSULE BY MOUTH EVERY DAY EDITORIAL DIRECTOR 01/14/2022 Active allopurinoL (ZYLOPRIM) 100 mg tablet [...] 04/21/2018 Restless Leg Syndrome 01/12/2018 Atherosclerosis Of [place] Ar teries Of Extremities With Intermittent Claudication Right Leg 08/08/2017 Hyperlipidemia 07/22/2017 Ulcer Leg Left 04/19/2017 Ulcer Toe Left 04/19/2017 Atherosclerosis Of [place] Ar teries Of Left Leg With Ulceration Of Unspecified Site 04/19/2017 Peripheral Arterial Disease 02/16/2017 Hypertension NOS 02/16/2017 Hypertensive Chronic Kidney Disease With Stage 1 Through Stage 4 Chronic Kidney Disease, Or Unspecified Chronic Kidney Disease 09/23/2016 Overview (10/05/2016): Hypertension (HTN) And CKD Stage 1-4 Model And Mold Maker Plaster Use Of Insulin Active 09/23/2016 Overview (10/05/2016): Skilled Nursing Use Of Insulin Active Depression Major Recurrent Moderate 06/22/2016 Overview (10/05/2016): Depression Major Recurrent Moderate Diabetes Mellitus Type 2 Wit h Other Circulatory Complication 06/22/2016 Overview (10/05/2016): DM2 Peripheral Neuropathy Uncontrolled Encounters Date Type Department Care Team Description 09/13/2023 Documentation Division of Nephrology and Hypertension in [place], [place] [address] [place] [address] Haseeb Menon Jr. D.O. 09/13/2023 Orders Only Division of Nephrology and Hypertension in [place], [place] [address] [place] [address] Haseeb Menon Jr., D.O. Atherosclerosis Of [place] Arteries Of Extremities With Intermittent Claudication Right Leg (HCC) (Primary Dx); Diabetes Mellitus Type 2 With Other Circulatory Complication (HCC); Anemia Of Chronic Renal Disease; Sleep Apnea from Last 3 Months Immunizations Name Administration [...] disease Brother 2 [place] Stroke Brother 2 [place] Diabetes Brother 3 Glenn Heart disease Father [...] How often do you attend alevism or quaker serv ices? Never 03/24/2021 Do [...] today? I have a [facility] place to live 10/26/2022 Education Answer Date Recorded What is the highest level of school you have completed or the highest degree you have received? 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/2021 8:13 PM ADMINISTRATIVE OFFICE MANAGER Gender Identity Male 08/31/2019 2:40 PM [...] 02/14/2023, 11/17/2022 Medical Devices Implanted Type Area Outside Machinist Device Identifier Shelf Expiration Date Model / Serial / Lot Patch Vasc Bovine.08cm X 8cm - Flores [id number] Implanted:Qty: 1 on 04/04/2017 Mesh or Patch Other/Legacy - See Implant Description Synovis Description:Device Manufactu rer - Synovis. Body Location - Other. Vascular. Device Status Text - [id number]. Ocular Lens-10/29/2007 Implanted:10/28 by Nato Zacarias APRN, C.N.P., R.N. (Quantity not on file) Ocular Lens Bilateral: Eye Description:Cataract extract ion and insertion of intraocular lens 06/22/2016 09:27 - MYROM, NATO J TIRE MECHANIC PRINT PRESS OPERATOR bilateral Conversions - Default Historical Implant [...] 6mm X 29mm X 135cm - Flores [id number] Implanted:Qty: 1 on 03/04/2017 Vascular Graft [place] Description:Device Manufactu rer - [employer]. Device Status Text - [id number]. Stent Vbx [id number] - Flores [id number] Implanted:Qty: 1 on 03/04/2017 Vascular Graft Other/Legacy - See Implant Description [place] Description:Device Manufactu rer - [employer] Body Location - Other. n/a. Device Status Text - [id number]. Stent Vbx [id number] - Flores [id number] Implanted:Qty: 1 on 03/04/2017 Vascular Graft Other/Legacy - See Implant Description [place] Description:Device Manufactu rer - [employer] Body Location - Other. n/a. Device Status Text - [id number]. Stent Zilver Ptx 6mm X 40mm - Flores [id number] Implanted:Qty: 1 on 04/04/2017 Vascular Stent Other/Legacy - See Implant Description [employer] Description:Device Manufactu rer - [employer]. Body Location - Other. Left. Device Status Text - [id number]. Stent Zilver Ptx 6mm X 60mm - Flores [id number] Implanted:Qty: 1 on 04/04/2017 Vascular Stent Other/Legacy - See Implant Description [employer] Description:Device Manufactu Medocity - [employer]. Body Location - Other. Left. Device Status Text - [id number]. Stent Zilver Ptx 6mm X 80mm - Flores [id number] Implanted:Qty: 1 on 08/31/2017 Vascular Stent Right: Other/Legacy - See Implant Description [employer] / [id number] / Description:Device Manufactu rer - [employer]. Body Location - Right. Device Status Text - [id number]. Stent Zilver Ptx 6mm X 40mm - Flores [id number] Implanted:Qty: 1 on 08/31/2017 Vascular Stent Right: Other/Legacy - See Implant Description [employer] / [id number] / Description:Device Manufactu rer - [employer]. Body Location - Right. Device Status Text - [id number]. Stnt Innova Otw [id number] - [id number] Implanted:Qty: 1 on 04/18/2018 by Kemar Velásquez M.B.B.S. at [facility] Vascular Stent [employer] 05/23/2020 [id number] / / [id number] Stnt Innova Otw [id number] - [id number] Implanted:Qty: 1 on 05/11/2019 by Kemar Velásquez M.B.B.S. at [facility] Vascular Stent Left: Leg [employer] 09/05/2020 [id number] / / [id number] Procedures Procedure Name Priority Date/Time Associated Diagnosis [...] Renal Disease Acidosis Metabolic Hyperchloremic Atherosclerosis Of [place] Arteries Of Extremities With Intermittent Claudication Right [...] AM CDT 02/17/2023 11:01 AM CDT Narrative [facility] - 02/17/2023 4:02 PM CDT Specimen Information: Specimen ID: [id number] Specimen Type: Blood Specimen Collection Start Date: 02/17/2023 ??9:35 AM Specimen Received Date: 02/17/2023 11:01 AM Specimen ID: [id number] Specimen Type: Blood Specimen Collection Start Date: 02/17/2023 ??9:35 AM Specimen Received Date: 02/17/2023 ??3:35 PM Estiven He Jr.OFei LAB BLOOD AD D-ON [facility] [address] [place] [address], [facility] OWAT [facility] [place] [address] [place] [address] [facility] - [facility] [address] [place] [address] * HCV Ab Scrn w/Reflex to HCV PCR, Serum (02/17/2023 9:35 AM CDT) HCV Ab Screen, S Negative Negative 02/18/20 3:35 PM CDT MKTO Comment: Biotin has been identified by the home teaching grades 9 thru 12 teacher as a potential interfering substance. Higher concentrations of biotin may be found in multivitamins, hair/nail supplements, and workout supplements. If the result does not match clinical observations, repeat testing after patient refrains from the use of supplements for at least 12 hours. Blood (Blood, Venous) 02/17/2023 9:35 AM CDT 02/17/2023 2:20 PM CDT Narrative [facility] - 02/17/2023 3:35 PM CDT Specimen Information: Specimen ID: [id number] Specimen Type: Blood Specimen Collection Start Date: 02/17/2023 ??9:35 AM Specimen Received Date: 02/17/2023 ??2:20 PM Specimen ID: [id number] Specimen Type: Blood Specimen Collection Start Date: 02/17/2023 ??9:35 AM Specimen Received Date: 02/17/2023 ??2:16 PM Haseeb Menon Jr., D.O. LAB MICROBIO LOGY - BLOOD ORDERABLES Performing Organization Address City/[facility] Co de Phone Number [facility] [address] [place] [address], [facility] MKTO [facility] [place] [address] [place] [address] * (ABNORMAL) Albumin, Random, Urine (02/17/2023 9:26 AM CDT) Microalbumin 895.0 mg/L 02/17/2023 1:53 PM CDT OWAT Creatinine 42 mg/dL 02/17/2023 12:50 PM CDT OWAT Albumin/Creatinin e Ratio 2131(H) <17 mg/g 02/17/2023 1:53 PM CDT OWAT Urine (Urine, Voided) 02/17/2023 9:26 AM CDT 02/17/2023 11:00 AM CDT Haseeb Menon Jr., D.O. LAB URINE OR DERABLES Performing Organization Address City/[facility]/ZIP Co de Phone Number [facility] [address] [place] [address], [facility] OW[facility] [place] [address] [place] [address] * (ABNORMAL) Hemoglobin A1c (11/25/2022 2:09 PM [...] Menon Jr., D.O. LAB BLOOD AD D-ON [facility] [address] [place] [address], [place] OW[place] [facility] [place] [address] [place] [address] * (ABNORMAL) Lipid Panel (02/10/2021 8:27 AM [...] AM CDT Kemar Reyes LAB BLOOD ADD-ON [facility] [address] [place] [address], [place] DTL [facility] [address] [place] [address] * CT Abdomen Pelvis Angiogram with IV [...] Advance Directives For more information, please contact: [phone] * Full Code (Latest Code Status on [...] Answer Comments Full Code: Discussed Care Teams Technical Publications Writer Relationship Specialty Start Date End Date Elsewhere, Pcp PCP - General Family Medicine 01/29/20
--- OUTSIDE RECORDS SUMMARY | 2023-12-13 09:56 | XMS_ITS | Clinical Summary ---
Author Organization [facility] Address [place], [place] [address] Care Team Providers Care High Raw Sugar Boiler Name Role Phone Casa Lucia MD Unavailable Unavailable Rudy Riddle MD Unavailable [phone] Rudy Riddle MD Primary Care Provider + Allergies Active Allergy Reactions Criticality Noted Date Comments Gabapentin Other - Describe In Comment Field Medium 08/04/2020 Dizzy, memory issue Dizzy, memory issue Morphine Itching 02/04/2010 After 3 days of use Pregabalin Anaphylaxis,Itching High 02/16/2017 swetesfaye jane Qvgoyjs-Bdv-Wto Reductase Inhibitors Myalgia 02/13/2014 Medications Medication Sig [...] Department Care Team Description 09/13/2023 Lab Requisition [facility] [phone] Unknown, Doctor from Last 3 Months Immunizations [...] Comments Blood Pressure 162/87 07/21/2022 9:21 PM BELLY DUMP DRIVER Pulse 100 07/21/2022 9:21 PM BELLY DUMP DRIVER Temperature 37.1 ??C (98.8 ??F) 07/21/2022 8:51 PM CS T Respiratory Rate 18 07/21/2022 8:51 PM BELLY DUMP DRIVER Oxygen Saturation 96% 07/21/2022 9:21 PM BELLY DUMP DRIVER Inhaled Oxygen Concentration - - Weight 83.9 kg (185 lb) 07/21/2022 5:35 PM BELLY DUMP DRIVER Height 175.3 cm (5' 9) 07/21/2022 5:35 PM BELLY DUMP DRIVER Body Mass Index 27.32 07/21/2022 5:35 PM BELLY DUMP DRIVER Plan of Treatment Health Maintenance Due Date [...] age 77 05/12/203205/12, 02/04/2006 (Completed outside of [facility]) Tdap Completed 08/16/2016 Pneumococcal series for [...] 0 AM CDT COLONOSCOPY 05/12/2022 8:51 AM BELLY DUMP DRIVER LIPID PANEL W REFLEX MEASURED LDL Routine 02/16/2016 8:59 AM CDT Hyperlipidemia, unspecified hyperlipidemia type from Last 3 Months or Most Recently Relevant to Health Maintenance Results * LAB TRACKING EVENT (09/13/2023 11:00 AM CDT) Other (Other) Client Collect / Unknown 09/13/2023 11:00 AM CDT 09/13/2023 9:30 PM CDT Doctor Unknown LAB BILL ONLY [facility]EN[facility]AL LABORATORY [address] [place] [address], * PATH TISSUE EXAM (09/13/2023 11:00 AM CDT) Case Report Pathology Report ?Case: [id number] ? Authorizing Provider: ??Unknown, Doctor ?Collected: ? 09/13/2023 1100 ? Ordering Location: ? [facility] ?Received: ?09/14/2023 1033 ? Pathologist: ? Anson Hale MD ? Specimen: ?Right foot ? 09/16/2023 7:47 AM [employer] LABORATORY-C ENTRAL LABORATORY Final Diagnosis A) FOOT, RIGHT, BIOPSY: 1. Bone with acute and chronic osteomyelitis 09/16/2023 7:47 AM [facility] Comment The specific bone that was biopsied is not provided. 09/16/2023 7:47 AM [facility] LAB[facility] Clinical Information Right foot, assess for osteomyelitis. 09/16/2023 7:47 AM [facility] [employer] [facility] Gross Description A) Received in formalin, labeled with the patient's name and date of , is a 1.8 x 0.5 x 0.2 cm aggregate of suresh-pink soft tissue fragments admixed with pale-suresh bone. ??The specimen is submitted entirely, in toto in 1 cassette. [facility] 09/14/2023 ?? 09/16/2023 7:47 AM T [facility]-C ENTRAL LABORATORY Microscopic Description The final diagnosis is based on microscopic examination of appropriate sections of all specimens. 09/16/2023 7:47 AM CDT [facility] LABORATORY-C ENTRAL LABORATORY Additional Information Interpreted at [facility], Central Laboratory - [address], [place] [address] 09/16/2023 7:47 AM CDT [facility] ENTRAL LABORATORY Other (Right foot) 09/13/2023 11:00 AM CDT 09/14/2023 10:33 AM CDT Doctor Unknown PATHOLOGY/CYTOLOGY [facility]-CENTRAL LABORATORY [address] [place] [address], * COLONOSCOPY (05/12/2022 8:51 AM BELLY DUMP DRIVER) 05/12/2022 8:51 AM BELLY DUMP DRIVER Narrative Transcriptions Lukas West MD - 05/12/2022 9:03 AM [facility] Patient Name: Onesimo Walton Procedure Date: 05/12/2022 Gender: Male Date of : 1950 Admit Type: Inpatient Procedure: Colonoscopy Proceduralist: Lukas West MD [facility] [place] Indications/Pre-Op Diagnosis: Anemia. Bacteremia Medications: Monitored Anesthesia Care Procedure Description: The patient had risks, benefits and alternatives explained to andgave informed consent. The patient had a stable cardiopulmonary status and judged an adequate candidate for conscious sedation. The [facility]-[id number] endoscope was passed through the anus and [...] the primary team. Call [facility] back if any questions orconcerns. [...] 101 <=130 mg/dL 02/16/2016 11:02 AM CDT [facility] PATIENT STATUS FASTING 02/16/2016 11:02 AM CDT [facility] Blood BLOOD SPECIMEN / Unknown Venipuncture / Unknown 02/16/2016 8:59 AM CDT 02/16/2016 8:59 AM CDT Rudy Riddle MD CHEMISTRY [facility] [address] [place] [address] [facility] [address] [place] [address], [place] [phone] from Last 3 Months or Most Recently [...] Preferences, Provider to review later Care Teams High Raw Sugar Boiler Relationship Specialty Start Date End Date Rudy Riddle MD [address] [place] [address] PCP - General Family Practice 05/25/22 Casa Lucia MD [address] [place] [address] Ophthalmology Ophthalmology Surgery 12/22/11 Rudy Riddle MD [address] [facility] [place] [address] Family Practice 05/07/22
--- OUTSIDE RECORDS SUMMARY | 2023-12-13 09:56 | XMS_ITS | Referral Summary ---
Author Organization [facility] Address [address] [place] [address] Care Team Providers Care Associate Account Manager Name Role Phone Elsewhere, Pcp Primary Care Provider Unavailabl e Source Comments Patient records contain information from all sites at [facility]. For routine questions regarding patient records, call [phone] during business hours, M-F 8:00 AM - 5:00 PM Central Time. Record requests for emergency care only can be directed to [phone] at any time.[facility] Encounters Date Type Department Care Team Description 09/13/2023 Documentation Division of Nephrology and Hypertension in [place], [place] [address] [place] [address] Haseeb Menon Jr., D.O. 09/13/2023 Orders Only Division of Nephrology and Hypertension in [place], [place] [address] [place] [address] Haseeb Menon Jr., D.O. Atherosclerosis Of [place] Arteries Of Extremities With Intermittent Claudication Right Leg (HCC) (Primary Dx); Diabetes Mellitus Type 2 With Other Circulatory Complication (HCC); Anemia Of Chronic Renal Disease; Sleep Apnea from Last 3 Months Allergies Active Allergy Reactions Criticality Noted Date Comments Gabapentin Other (see comments) Medium 08/04/2020 Dizzy, memory issue Morphine Itching,Rash Medium 02/14/2012 itchy Pregabalin Anaphylaxis High 02/16/2017 swell Etvlykf-Loc-Xzq Reductase Inhibitors Myalgia Low 02/13/2014 Medications Medication [...] TAKE ONE CAPSULE BY MOUTH EVERY DAY ALLOY WEIGHER 01/14/2022 Active allopurinoL (ZYLOPRIM) 100 mg tablet [...] 04/21/2018 Restless Leg Syndrome 01/12/2018 Atherosclerosis Of [place] Ar teries Of Extremities With Intermittent Claudication Right Leg 08/08/2017 Hyperlipidemia 07/22/2017 Ulcer Leg Left 04/19/2017 Ulcer Toe Left 04/19/2017 Atherosclerosis Of [place] Ar teries Of Left Leg With Ulceration Of Unspecified Site 04/19/2017 Peripheral Arterial Disease 02/16/2017 Hypertension NOS 02/16/2017 Hypertensive Chronic Kidney Disease With Stage 1 Through Stage 4 Chronic Kidney Disease, Or Unspecified Chronic Kidney Disease 09/23/2016 Overview (10/05/2016): Hypertension (HTN) And CKD Stage 1-4 [facility] Use Of Insulin Active 09/23/2016 Overview (10/05/2016): [facility] Use Of Insulin Active Depression Major Recurrent [...] How often do you attend mormon or adventist serv ices? 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 Body Location - Other. Vascular. Device Status Text - [id number]. Ocular Lens-10/29/2007 Implanted:10/28 by Nato Dougherty, JULIÁN, C.N.P., R.N. (Quantity not on file) Ocular Lens Bilateral: Eye Description:Cataract extract ion and insertion of intraocular lens 06/22/2016 09:27 - [employer] GEOLOGIST RN INTENSIVE CARE UNIT bilateral Conversions - Default Historical Implant Device [...] 6mm X 29mm X 135cm - Flores [id number] Implanted:Qty: 1 on 03/04/2017 Vascular Graft Newfields Description:Device Manufactu rer - [employer]. Device Status Text - [id number]. Stent Vbx [id number] - Flores [id number] Implanted:Qty: 1 on 03/04/2017 Vascular Graft Other/Legacy - See Implant Description Newfields Description:Device Manufactu rer - [employer] Body Location - Other. n/a. Device Status Text - [id number]. Stent Vbx [id number] - Flores [id number] Implanted:Qty: 1 on 03/04/2017 Vascular Graft Other/Legacy - See Implant Description Newfields Description:Device Manufactu rer - [employer] Body Location - Other. n/a. Device Status Text - [id number]. Stent Zilver Ptx 6mm X 40mm - Flores [id number] Implanted:Qty: 1 on 04/04/2017 Vascular Stent Other/Legacy - See Implant Description [employer] Description:Device Manufactu rer - [employer]. Body Location - Other. Left. Device Status Text - [id number]. Stent Zilver Ptx 6mm X 60mm - Flores [id number] Implanted:Qty: 1 on 04/04/2017 Vascular Stent Other/Legacy - See Implant Description [employer] Description:Device Manufactu rer - [employer]. Body Location - Other. Left. Device Status Text - [id number]. Stent Zilver Ptx 6mm X 80mm - Flores [id number] Implanted:Qty: 1 on 08/31/2017 Vascular Stent Right: Other/Legacy - See Implant Description [employer]. / [id number] / Description:Device Manufactu rer - [employer]. Body Location - Right. Device Status Text - [id number]. Stent Zilver Ptx 6mm X 40mm - Flores [id number] Implanted:Qty: 1 on 08/31/2017 Vascular Stent Right: Other/Legacy - See Implant Description [employer] / [id number] / Description:Device Manufactu rer - [employer]. Body Location - Right. Device Status Text - [id number]. Stnt Innova Otw [id number] - [id number] Implanted:Qty: 1 on 04/18/2018 by Kemar Velásquez M.B.B.S. at [facility] Vascular Stent [employer] 05/23/2020 [id number] / / [id number] Stnt Innova Otw [id number] - [id number] Implanted:Qty: 1 on 05/11/2019 by Kemar Velásquez M.B.B.S. at [facility] Vascular Stent Left: Leg [employer] 09/05/2020 [id number] / / [id number] Procedures Procedure Name Priority Date/Time Associated Diagnosis [...] Renal Disease Acidosis Metabolic Hyperchloremic Atherosclerosis Of [place] Arteries Of Extremities With Intermittent Claudication Right [...] AM CDT 02/17/2023 11:01 AM CDT Narrative [facility] - 02/17/2023 4:02 PM CDT Specimen Information: Specimen ID: [id number] Specimen Type: Blood Specimen Collection Start Date: 02/17/2023 ??9:35 AM Specimen Received Date: 02/17/2023 11:01 AM Specimen ID: [id number] Specimen Type: Blood Specimen Collection Start Date: 02/17/2023 ??9:35 AM Specimen Received Date: 02/17/2023 ??3:35 PM Haseeb Menon Jr., D.O. LAB BLOOD AD D-ON [facility] [address] [place] [address], [facility] in [place] [address] [place] [address] AUST [facility] [address] [place] [address] * HCV Ab Scrn w/Reflex to HCV PCR, Serum (02/17/2023 9:35 AM CDT) HCV Ab Screen, S Negative Negative 02/18/20 3:35 PM CDT MKTO Comment: Biotin has been identified by the preparatory technician as a potential interfering substance. Higher concentrations of biotin may be found in multivitamins, hair/nail supplements, and workout supplements. If the result does not match clinical observations, repeat testing after patient refrains from the use of supplements for at least 12 hours. Blood (Blood, Venous) 02/17/2023 9:35 AM CDT 02/17/2023 2:20 PM CDT Narrative [facility] - 02/17/2023 3:35 PM CDT Specimen Information: Specimen ID: [id number] Specimen Type: Blood Specimen Collection Start Date: 02/17/2023 ??9:35 AM Specimen Received Date: 02/17/2023 ??2:20 PM Specimen ID: [id number] Specimen Type: Blood Specimen Collection Start Date: 02/17/2023 ??9:35 AM Specimen Received Date: 02/17/2023 ??2:16 PM Haseeb Menon Jr., D.O. LAB MICROBIO LOGY - BLOOD ORDERABLES [facility] [address] [place] [address], [facility] in [place] [address] [place] [address] * (ABNORMAL) Albumin, Random, Urine (02/17/2023 9:26 AM CDT) Microalbumin 895.0 mg/L 02/17/2023 1:53 PM CDT [facility] Creatinine 42 mg/dL 02/17/2023 12:50 PM CDT [facility] Albumin/Creatinin e Ratio 2131(H) <17 mg/g 02/17/2023 1:53 PM CDT [facility] Urine (Urine, Voided) 02/17/2023 9:26 AM CDT 02/17/2023 11:00 AM CDT Haseeb Menon Jr., D.O. LAB URINE OR DERABLES Performing Organization Address [facility] Co de Phone Number [facility] [address] [place] [address], [facility] [place] [address] [place] [address] * (ABNORMAL) Hemoglobin A1c (11/25/2022 2:09 PM [...] BLOOD AD D-ON Performing Organization Address [facility] Co de Phone Number [facility] [address] [place] [address], [facility] [place] [address] [place] [address] * (ABNORMAL) Lipid Panel (02/10/2021 8:27 AM [...] AM CDT Kemar Reyes LAB BLOOD ADD-ON [address] [address], [facility] [address] [place] [address] * CT Abdomen Pelvis Angiogram with IV [...] Advance Directives For more information, please contact: [phone] * Full Code (Latest Code Status on [...] Answer Comments Full Code: Discussed Care Teams Associate Account Manager Relationship Specialty Start Date End Date Elsewhere, Pcp PCP - General Family Medicine 01/29/20
--- OUTSIDE RECORDS SUMMARY | 2023-12-13 09:56 | XMS_ITS | Continuity of Care Document ---
Author Organization [facility] Address [address] [place] [address] Phone Care Team Providers Care Manager Telemetry Name Role Phone Dot Warner Unavailable Unavailable Medications Medication Instructions Dosage Effective Dates (start - stop) Status Comments AMPICILLIN-SULBACTAM (unknown strength) Not Available - Active MINOCYCLINE HCL (unknown strength) Not Available - Active Procedures Procedure Date Office/Outpatient Visit,Est, Mod 2022 OFFICE/OUTPATIENT VISIT EST Phone Office/Outpatient Visit,Est, Mod 2022 Followup Hospital Care, [facility] 2021 Advance Directives Directive Yes / No Effective Date File Name No Information Encounters Encounter Description Practice Location Reason(s) For Visit Diagnoses Date Provider Providers Copied on Encounter [facility], [address], [place], [place], [id number] , [place] tel: [phone] [facility] [place] - [facility] No Information 3 Kindra Chris. [facility] [place], [address] [place] [address] [address], [place], [address], [place]. tel: [phone] Office/Outpa tient Visit,Est, Mod [facility], [address], [place], [place], [id number] , [place] tel: [phone] [facility] [place] [facility] [place] Spinal stenosis, lumbar region with neurogenic claudication 3 Camille Bob. [facility] [place], [address] [place] [address], [address], [place], [address], [place]. tel: [phone] Referring Provider: Lisbeth Thomas, [facility] [address], [address], [place], [address]. [phone] OFFICE/OUTPA TIENT VISIT EST Phone [facility], [address], [place], [place], [id number] , [place] [phone] [facility] [place] [facility] [place] No Information 3 Obrien Lisbeth. [facility], [address], [address], [place], [address], [place]. [phone] Referring Provider: Lisbeth Thomas, [facility] [address], [address], [place], [address]. [phone] Office/Outpa tient Visit,Est, Mod [facility], [address], [place], [place], [id number] , [place] [phone] [facility] Low back pain, unspecifiedOther specified soft tissue disorders 3 Obrien Lisbeth. [facility] [place], [address], [address], [place], [address], [place]. [phone] Referring Provider: Lisbeth Thomas, [facility] [place] [address], [address], [place], [address]. [phone] Followup Hospital Care, Moderate [facility], [address], [place], [place], [id number] , [place] [phone] [facility] No Information 2 Dhaval Velez. [facility], [address], [address], [place], [address], [place]. [phone] Referring Provider: Rudy Riddle, [facility] [address], [address]. tel:[phone] Family History Family Member Type Diagnosis Age At Onset No Information Payers Payer name Insurance type Covered libertarian ID Authorjaimealivia durant([place]) [place] [id number] Medicare [facility] [id number] 1 Social History Type Description Quantity Date [...]
--- OUTSIDE RECORDS SUMMARY | 2023-12-13 09:57 | XMS_ITS | Encounter Summary ---
Author Organization [facility] Address [address] [place] [address] Care Team Providers Care Pocket Flap Creasing Machine Operator Name Role Phone Elsewhere, Pcp Primary Care Provider Unavailabl e Encounter Details Date Type Department Care Team (Late st Contact Info) Description 09/09/2023 Orders Only Division of Nephrology and Hypertension in [place], [place] [address] [place] [address] Haseeb Menon Jr., D.O. [address] [place] [address] Social History Tobacco Use Types Packs/Day Years [...] How often do you attend congregation or protestant serv ices? Never 03/24/2021 Do [...] your living situation today? I have a [facility] place to live 10/26/2022 Education Answer Date Recorded What is the highest level of school you have completed or the highest degree you have received? 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
--- OUTSIDE RECORDS SUMMARY | 2023-12-13 09:57 | XMS_ITS | Encounter Summary ---
Author Organization [facility] Address [address] [place] [address] Care Team Providers Care Foundation Director Name Role Phone Elsewhere, Pcp Primary Care Provider Unavailabl e Reason for Visit * Reason Onset Date Comments New Symptoms 08/15/2023 Encounter Details Date Type Department Care Team (Latest Contact Info) Description 08/15/2023 Clinical Communication Division of Nephrology and Hypertension in [place], [place] [address] [place] [address] Haseeb Menon Jr., D.O. [address] [place] [address] New Symptoms Social History Tobacco Use Types [...] How often do you attend scientology or lutheran serv ices? Never 03/24/2021 Do [...] your living situation today? I have a [facility] place to live 10/26/2022 Education Answer Date Recorded What is the highest level of school you have completed or the highest degree you have received? 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/2021 8:13 PM CARDIOLOGY CLINICAL NURSE SPECIALIST Gender Identity Male 08/31/2019 2:40 PM [...] I spoke with Uriel, Pharmacist, in our [facility]. Per his medication database, a [...] yes. The following references were used: other [facility] Pharmacist . * Telephone Encounter - Chloe Lazo - 08/15/2023 10:43 AM CDT Caller is: : Authorization YES Preferred Communication Method: [phone] Reason for call: Pt's , Siria, called [...] as of this encounter Care Teams Foundation Director Relationship Specialty Start Date End Date Elsewhere, Pcp PCP - General Family Medicine 01/29/20 documented as of this encounter
--- OUTSIDE RECORDS SUMMARY | 2023-12-13 09:57 | XMS_ITS ---
Author Organization [facility] Address [address] [place] [address] Care Team Providers Care Wound Care Rn Name Role Phone Unavailable Unavailable Unavailable Surgery Details Not on file Complications Check Surgery Details section. Procedure Estimated Blood Loss Check Surgery Details section. Procedure Findings Check Surgery Details section. Procedure Specimens Taken Check Surgery Details section.
--- OUTSIDE RECORDS SUMMARY | 2023-12-13 09:57 | XMS_ITS | Encounter Summary ---
Author Organization [facility] Address [address] [place] [address] Care Team Providers Care Flour Blender Name Role Phone Elsewhere, Pcp Primary Care Provider Unavailabl e Encounter Details Date Type Department Care Team (Late st Contact Info) Description 08/19/2016 Historical Ophthalmology [facility] Chalo Holland Jr., M.D. [address] [place] [address] Social History Tobacco Use Types Packs/Day Years Used Date Smoking Tobacco: Every Day Sex and Gender Information Value Date Recorded Sex Assigned at Male 03/24/2021 8:13 PM TRIAL PARALEGAL Gender Identity Male 08/31/2019 2:40 PM [...] IOL OU CDM Reports - EYEGEN Id: [id number] Status: Fnl documented in this encounter Plan of Treatment Not on file documented as of this encounter Visit Diagnoses Not on filedocumented in this encounter Additional Health Concerns Infection Onset Date Last Indicated Resolved Time COVID19 Pending 05/08/2020 05/08/2020 05/08/2020 2 :44 PM TRIAL PARALEGAL Assessment Noted Time PHQ-9 Depression Total Score: 7 08/17/19 17 9:01 AM CDT documented as of this encounter Care Teams Flour Blender Relationship Specialty Start Date End Date Elsewhere, Pcp PCP - General Family Medicine 01/29/20 documented as of this encounter
--- OUTSIDE RECORDS SUMMARY | 2023-12-13 09:57 | XMS_ITS | Encounter Summary ---
Author Organization [facility] Address [address] [place] [address] Care Team Providers Care Physical Therapy Aide Name Role Phone Elsewhere, Pcp Primary Care Provider Unavailabl e Encounter Details Date Type Department Care Team (Late st Contact Info) Description 08/16/2023 Orders Only Division of Nephrology and Hypertension, [facility], in [place], [place] [address] [place] [phone] Ishan Guardado, JULIÁN, C.N.P., M.S.N. [address] [place] [phone] Social History Tobacco Use Types Packs/Day Years [...] often do you attend gnosticism or adventism serv ices? Never 03/24/2021 Do [...] Assigned at Male 03/24/2021 8:13 PM MANAGER DIESEL Gender Identity Male 08/31/2019 2:40 PM CDT Sexual Orientation Straight 08/31/2019 2: 40 PM CDT documented as of this encounter Plan of Treatment Not on file documented as of this encounter Visit Diagnoses Not on filedocumented in this encounter Additional Health Concerns Assessment Noted Time PHQ-9 Depression Total Score: 3 01/04/20 18 10:38 AM CDT documented as of this encounter Care Teams Physical Therapy Aide Relationship Specialty Start Date End Date Elsewhere, Pcp PCP - General Family Medicine 01/29/20 documented as of this encounter
--- OUTSIDE RECORDS SUMMARY | 2023-12-13 09:57 | XMS_ITS | Encounter Summary ---
Author Organization [facility] Address [address] [place] [address] Care Team Providers Care Fixed Wing Aircraft Flight Mechanic Name Role Phone Elsewhere, Pcp Primary Care Provider Unavailabl e Reason for Visit * Reason Onset Date Comments Hypertension 09/09/2023 Encounter Details Date Type Department Care Team (Latest Contact Info) Description 09/09/2023 Clinical Communication Division of Nephrology and Hypertension in [place], [place] [address] [place] [address] Haseeb Menon Jr., D.O. [address] [place] [address] Hypertension Social History Tobacco Use Types Packs/Day [...] How often do you attend sikh or christian serv ices? Never 03/24/2021 Do [...] living situation today? I have a [facility] place to live 10/26/2022 Education Answer Date Recorded What is the highest level of school you have completed or the highest degree you have received? 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
--- OUTSIDE RECORDS SUMMARY | 2023-12-13 09:57 | XMS_ITS | Encounter Summary ---
Author Organization [facility] Address [address] [place] [address] Care Team Providers Care Blind Cleaner Name Role Phone Elsewhere, Pcp Primary Care Provider Unavailabl e Encounter Details Date Type Department Care Team (Late st Contact Info) Description 09/09/2023 Documentation Division of Nephrology and Hypertension in [place], [place] [address] [place] [address] Haseeb Menon Jr., D.O. [address] [place] [address] Social History Tobacco Use Types Packs/Day Years [...] How often do you attend pentecostalism or moravian serv ices? Never 03/24/2021 Do [...] living situation today? I have a [facility] place [facility] live 10/26/2022 Education Answer Date Recorded What is the highest level of school you have completed or the highest degree you have received? 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
--- OUTSIDE RECORDS SUMMARY | 2023-12-13 09:57 | XMS_ITS | Encounter Summary ---
Author Organization [facility] Address [address] [place] [address] Care Team Providers Care Chemistry Account Manager Name Role Phone Elsewhere, Pcp Primary Care Provider Unavailabl e Encounter Details Date Type Department Care Team (Late st Contact Info) Description 09/13/2023 Documentation Division of Nephrology and Hypertension in [place], [place] [address] [place] [address] Haseeb Menon Jr., D.O. [address] [place] [address] Social History Tobacco Use Types Packs/Day Years [...] How often do you attend hoahaoism or adventist serv ices? 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 - 09/13/2023 9:30 AM CDT Care coordination-dialysis visit: Please see the sure scripts tab, in Care everywhere or the documents tab regarding his full dialysis notes from the [facility] Dialysis home program. Fair amount of [...] documented as of this encounter Care Teams Chemistry Account Manager Relationship Specialty Start Date End Date Elsewhere, Pcp PCP - General Family Medicine 01/29/20 documented as of this encounter
--- OUTSIDE RECORDS SUMMARY | 2023-12-13 09:57 | XMS_ITS | Encounter Summary ---
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) Diabetes Mellitus Type 2 With Other Circulatory Complication (HCC) Anemia Of Chronic Renal Disease Sleep Apnea Haseeb Menon Jr., D.OFei [address] [place] [address] [facility] Referral ID Status Reason Start Date Expiration Date Visits Requested Visits Authorized [id number] Authorized Specialty Services Required 09/13/2023 03/14/2025 1 1 Encounter Details Date Type Department Care Team (Latest Contact Info) Description 09/13/2023 Orders Only Division of Nephrology and Hypertension in [place], [place] [address] [place] [address] Haseeb Menon Jr., D.OFei [address] [place] [phone] Atherosclerosis Of [place] Arteries Of Extremities With Intermittent Claudication Right [...] How often do you attend yazidism or cheondoism serv ices? 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 Gender Identity Male 08/31/2019 2:40 PM CDT Sexual Orientation Straight 08/31/2019 2: 40 PM CDT documented as of this encounter Plan of Treatment Scheduled Referrals Name Type Priority Associated Diagnoses Orde r Schedule Sleep Medicine - General consult (clinic) Outpatient Referral Routine Atherosclerosis Of [place] Arteries Of Extremities With Intermittent Claudication Right Leg (HCC) Diabetes Mellitus Type 2 With Other Circulatory Complication (HCC) Anemia Of Chronic Renal Disease Sleep Apnea Expected: 09/13/2023, Expires: 12/12/2024 documented as of this encounter Visit Diagnoses Diagnosis Atherosclerosis Of [place] Arteries Of Extremities With Intermittent Claudication Right Leg (HCC)- Primary Diabetes Mellitus Type 2 With Other Circulatory Complication (HCC) Anemia Of Chronic Renal Disease Sleep Apnea documented in this encounter Additional Health Concerns Assessment Noted Time PHQ-9 Depression Total Score: 3 01/04/20 18 10:38 AM CDT documented as of this encounter Care Teams Oven Unloader Relationship Specialty Start Date End Date Elsewhere, Pcp PCP - General Family Medicine 01/29/20 documented as of this encounter
== END 2023-12-13 09:53 | disposition home or self-care (01) ==
LOC: WOUND 09:52
PROVIDERS: PCP Family Medicine; Visit Provider Nurse Practitioner Family
DX: E11.621 Type 2 diabetes mellitus with foot ulcer (principal); L97.512 Non-pressure chronic ulcer of other part of right foot with fat layer exposed; L97.518 Non-pressure chronic ulcer of other part of right foot with other specified severity; N18.5 Chronic kidney disease, stage 5; E11.22 Type 2 diabetes mellitus with diabetic chronic kidney disease; Z96.41 Presence of insulin pump (external) (internal); Z99.2 Dependence on renal dialysis
CPT/HCPCS: 11042; 97597

== ENCOUNTER 2023-12-20 09:58 | Outpatient (CLI) | payer MEDICARE, BC, SELFPAY ==
--- OUTSIDE RECORDS SUMMARY | 2023-12-20 10:01 | XMS_ITS | Encounter Summary ---
Author Organization [facility] Address [address] [place] [address] Care Team Providers Care Assistant Professor Of Spanish Name Role Phone Elsewhere, Pcp Primary Care Provider Unavailabl e Reason for Visit * Reason Onset Date Comments New Symptoms 08/15/2023 Encounter Details Date Type Department Care Team (Latest Contact Info) Description 08/15/2023 Clinical Communication Division of Nephrology and Hypertension in [place], [place] [address] [place] [address] Haseeb Menon Jr., D.O. [address] [place] [address] New Symptoms Social History Tobacco Use Types [...] How often do you attend mu-ism or rastafari serv ices? Never 03/24/2021 Do [...] your living situation today? I have a [facility] place to live 10/26/2022 Education Answer Date Recorded What is the highest level of school you have completed or the highest degree you have received? 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 Per his medication database, a [...] yes. The following references were used: other [facility] Pharmacist . * Telephone Encounter - Chloe Lazo - 08/15/2023 10:43 AM CDT Caller is: : Authorization YES Preferred Communication Method: [phone] Reason for call: Pt's , Siria, called [...] this encounter Care Teams Assistant Professor Of Spanish Relationship Specialty Start Date End Date Elsewhere, Pcp PCP - General Family Medicine 01/29/20 documented as of this encounter
--- OUTSIDE RECORDS SUMMARY | 2023-12-20 10:01 | XMS_ITS | Encounter Summary ---
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 (HCC) Diabetes Mellitus Type 2 With Other Circulatory Complication (HCC) Anemia Of Chronic Renal Disease Sleep Apnea Haseeb Menon Jr., D.OFei [address] [place] [address] [facility] Referral ID Status Reason Start Date Expiration Date Visits Requested Visits Authorized [id number] Authorized Specialty Services Required 09/13/2023 03/14/2025 1 1 Encounter Details Date Type Department Care Team (Latest Contact Info) Description 09/13/2023 Orders Only Division of Nephrology and Hypertension in [place], [place] [address] [place] [address] Haseeb Menon Jr., D.OFei [address] [place] [phone] Atherosclerosis Of [place] Arteries Of Extremities With Intermittent Claudication Right [...] How often do you attend congregational or alevism serv ices? 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 (HCC) Diabetes Mellitus Type 2 With Other Circulatory Complication (HCC) Anemia Of Chronic Renal Disease Sleep Apnea Expected: 09/13/2023, Expires: 12/12/2024 documented as of this encounter Visit Diagnoses Diagnosis Atherosclerosis Of [place] Arteries Of Extremities With Intermittent Claudication Right Leg (HCC)- Primary Diabetes Mellitus Type 2 With Other Circulatory Complication (HCC) Anemia Of Chronic Renal Disease Sleep Apnea documented in this encounter Additional Health Concerns Assessment Noted Time PHQ-9 Depression Total Score: 3 01/04/20 18 10:38 AM CDT documented as of this encounter Care Teams Steaming Machine Operator Relationship Specialty Start Date End Date Elsewhere, Pcp PCP - General Family Medicine 01/29/20 documented as of this encounter
--- OUTSIDE RECORDS SUMMARY | 2023-12-20 10:01 | XMS_ITS | Encounter Summary ---
Author Organization [facility] Address [address] [place] [address] Care Team Providers Care Aircraft Dispatcher Name Role Phone Elsewhere, Pcp Primary Care Provider Unavailabl e Encounter Details Date Type Department Care Team (Late st Contact Info) Description 08/16/2023 Orders Only Division of Nephrology and Hypertension, [facility], in [place], [place] [address] [place] [phone] Ishan Guardado, JULIÁN, C.N.P., M.S.N. [address] [place] [phone] Social History Tobacco Use Types Packs/Day Years [...] How often do you attend christian or baptist serv ices? Never 03/24/2021 Do [...] Assigned at Male 03/24/2021 8:13 PM ACID FILLER Gender Identity Male 08/31/2019 2:40 PM CDT Sexual Orientation Straight 08/31/2019 2: 40 PM CDT documented as of this encounter Plan of Treatment Not on file documented as of this encounter Visit Diagnoses Not on filedocumented in this encounter Additional Health Concerns Assessment Noted Time PHQ-9 Depression Total Score: 3 01/04/20 18 10:38 AM CDT documented as of this encounter Care Teams Aircraft Dispatcher Relationship Specialty Start Date End Date Elsewhere, Pcp PCP - General Family Medicine 01/29/20 documented as of this encounter
--- OUTSIDE RECORDS SUMMARY | 2023-12-20 10:01 | XMS_ITS | Encounter Summary ---
Author Organization [facility] Address [address] [place] [address] Care Team Providers Care Rental Car Ferry Driver Name Role Phone Elsewhere, Pcp Primary Care Provider Unavailabl e Reason for Visit * Reason Onset Date Comments Hypertension 09/09/2023 Encounter Details Date Type Department Care Team (Latest Contact Info) Description 09/09/2023 Clinical Communication Division of Nephrology and Hypertension in [place], [place] [address] [place] [address] Haseeb Menon Jr., D.O. [address] [place] [address] Hypertension Social History Tobacco Use Types Packs/Day [...] often do you attend jehovah's witness or buddhist serv ices? 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
--- OUTSIDE RECORDS SUMMARY | 2023-12-20 10:01 | XMS_ITS | Clinical Summary ---
Author Organization [facility] Address [place], [place] [address] Care Team Providers Care Chief Of Service Name Role Phone Casa Lucia MD Unavailable Unavailable Rudy Riddle MD Unavailable [phone] Rudy Riddle MD Primary Care Provider + Allergies Active Allergy Reactions Criticality Noted Date Comments Gabapentin Other - Describe In Comment Field Medium 08/04/2020 Dizzy, memory issue Dizzy, memory issue Morphine Itching 02/04/2010 After 3 days of use Pregabalin Anaphylaxis,Itching High 02/16/2017 swetesfaye jane Azfcwec-Mzz-Vrt Reductase Inhibitors Myalgia 02/13/2014 Medications Medication Sig [...] Comments Blood Pressure 162/87 07/21/2022 9:21 PM POLICE DETECTIVE Pulse 100 07/21/2022 9:21 PM POLICE DETECTIVE Temperature 37.1 ??C (98.8 ??F) 07/21/2022 8:51 PM CS T Respiratory Rate 18 07/21/2022 8:51 PM POLICE DETECTIVE Oxygen Saturation 96% 07/21/2022 9:21 PM POLICE DETECTIVE Inhaled Oxygen Concentration - - Weight 83.9 kg (185 lb) 07/21/2022 5:35 PM POLICE DETECTIVE Height 175.3 cm (5' 9) 07/21/2022 5:35 PM POLICE DETECTIVE Body Mass Index 27.32 07/21/2022 5:35 PM POLICE DETECTIVE Plan of Treatment Health Maintenance Due Date [...] age 77 05/12/203205/12, 02/04/2006 (Completed outside of [facility]) Tdap Completed 08/16/2016 Pneumococcal series for age 65+ Completed 04/24/2018, 04/11/2017, 02/14/2012, Additional history exists Goals Goal Patient Goal Type Associated Problems Recent Progress Patient-Stated? Author BLOOD PRESSURE - MAINTAINS BP less than 140/90 Blood Pressure No Rudy Riddle MD Procedures Procedure Name Priority Date/Time Associated Diagnosis Comments COLONOSCOPY 05/12/2022 8:51 AM POLICE DETECTIVE LIPID PANEL W REFLEX MEASURED LDL Routine 02/16/2016 8:59 AM CDT Hyperlipidemia, unspecified hyperlipidemia type from Last 3 Months or Most Recently Relevant to Health Maintenance Results * COLONOSCOPY (05/12/2022 8:51 AM POLICE DETECTIVE) 05/12/2022 8:51 AM POLICE DETECTIVE Narrative Transcriptions Lukas West MD - 05/12/2022 9:03 AM [facility] Patient Name: Onesimo Walton Procedure Date: 05/12/2022 Gender: Male Date of : 1950 Admit Type: Inpatient Procedure: Colonoscopy Proceduralist: Lukas West MD [facility] Indications/Pre-Op Diagnosis: Anemia. Bacteremia Medications: Monitored Anesthesia Care Procedure Description: The patient had risks, benefits and alternatives explained to andgave informed consent. The patient had a stable cardiopulmonary status and judged an adequate candidate for conscious sedation. The [facility]-[id number] endoscope was passed through the anus and [...] Furthermanagement is per the primary team. Call [facility] back if any questions orconcerns. Lukas West MD 05/12/2022 9:03:39 AM This report has been signed electronically. Note Initiated On: 05/12/2022 8:51 AM Lukas West MD PROCEDURE ORD * (ABNORMAL) LIPID PANEL W REFLEX MEASURED LDL (02/16/2016 8:59 AM CDT) CHOLESTEROL,TOTAL 178 100 - 199 mg/dL 02/16/2016 11:02 AM CDT [facility] TRIGLYCERIDES 232(H) <150 mg/dL 02/16/2016 11:02 AM CDT [facility] HDL CHOLESTEROL 31(L) >40 mg/dL 02/16/2016 11:02 AM CDT [facility] NON-HDL CHOLESTEROL 147(H) <145 mg/dl 02/16/2016 11:02 AM CDT [facility] CHOL/HDL RATIO 5.74(H) <4.50 02/16/2016 11:02 AM CDT [facility] LDL CHOLESTEROL 101 <=130 mg/dL 02/16/2016 11:02 AM CDT [facility] PATIENT STATUS FASTING 02/16/2016 11:02 AM CDT [facility] Blood BLOOD SPECIMEN / Unknown Venipuncture / Unknown 02/16/2016 8:59 AM CDT 02/16/2016 8:59 AM CDT Rudy Riddle MD CHEMISTRY [facility] [address] [place] [address] [facility] [address] [place] [address], [place] [phone] from Last 3 Months or Most Recently [...] Preferences, Provider to review later Care Teams Chief Of Service Relationship Specialty Start Date End Date Rudy Riddle MD [address] [place] [address] PCP - General Family Practice 05/25/22 Casa Lucia MD [address] [place] [address] Ophthalmology Ophthalmology Surgery 12/22/11 Rudy Riddle MD [address] [place] [address] Family Practice 05/07/22
--- OUTSIDE RECORDS SUMMARY | 2023-12-20 10:01 | XMS_ITS | Referral Summary ---
Author Organization [facility] Address [address] [place] [address] Care Team Providers Care Principal Data Architect Name Role Phone Elsewhere, Pcp Primary Care Provider Unavailabl e Source Comments Patient records contain information from all sites at [facility]. For routine questions regarding patient records, call [phone] during business hours, M-F 8:00 AM - 5:00 PM Central Time. Record requests for emergency care only can be directed to [phone] at any time.[facility] Allergies Active Allergy Reactions Criticality Noted Date Comments Gabapentin Other (see comments) Medium 08/04/2020 Dizzy, memory issue Morphine Itching,Rash Medium 02/14/2012 itchy Pregabalin Anaphylaxis High 02/16/2017 swell Kkjfclz-Iax-Gjy Reductase Inhibitors Myalgia Low 02/13/2014 Medications Medication [...] TAKE ONE CAPSULE BY MOUTH EVERY DAY SUSPENSION CORD TIER 01/14/2022 Active allopurinoL (ZYLOPRIM) 100 mg tablet [...] 04/21/2018 Restless Leg Syndrome 01/12/2018 Atherosclerosis Of [place] Ar teries Of Extremities With Intermittent Claudication Right Leg 08/08/2017 Hyperlipidemia 07/22/2017 Ulcer Leg Left 04/19/2017 Ulcer Toe Left 04/19/2017 Atherosclerosis Of [place] Ar teries Of Left Leg With Ulceration Of Unspecified Site 04/19/2017 Peripheral Arterial Disease 02/16/2017 Hypertension NOS 02/16/2017 Hypertensive Chronic Kidney Disease With Stage 1 Through Stage 4 Chronic Kidney Disease, Or Unspecified Chronic Kidney Disease 09/23/2016 Overview (10/05/2016): Hypertension (HTN) And CKD Stage 1-4 Tile Conduit Layer Use Of Insulin Active 09/23/2016 Overview (10/05/2016): Tile Conduit Layer Use Of Insulin Active Depression Major Recurrent [...] How often do you attend taoism or cheondoism serv ices? Never 03/24/2021 Do [...] Date Recorded PHQ-2 Score 0 10/20/2018 [facility] [place] of Occupat ional Health - Occupational Stress [...] Assigned at Male 03/24/2021 8:13 PM MANAGER CONTROL Gender Identity Male 08/31/2019 2:40 PM CDT [...] on file Medical Devices Implanted Type Area Photocopy Operator Device Identifier Shelf Expiration Date Model / Serial / Lot Patch Vasc Bovine.08cm X 8cm - [place] [id number] Implanted:Qty: 1 on 04/04/2017 Mesh or Patch Other/Legacy - See Implant Description Synovis Description:Device Manufactu rer - Synovis. Body Location - Other. Vascular. Device Status Text - [id number]. Ocular Lens-10/29/2007 Implanted:10/28 by Nato Dougherty, JULIÁN, C.N.P., R.N. (Quantity not on file) Ocular Lens Bilateral: Eye Description:Cataract extract ion and insertion of intraocular lens 06/22/2016 09:27 - [employer] [facility] INTAKE TECHNICIAN COST CONTROL SPECIALIST bilateral Conversions - Default Historical Implant [...] 6mm X 29mm X 135cm - Flores [id number] Implanted:Qty: 1 on 03/04/2017 Vascular Graft [place] Description:Device Manufactu [employer] - [place]. Device Status Text - [id number]. Stent Vbx [id number] - [place] [id number] Implanted:Qty: 1 on 03/04/2017 Vascular Graft Other/Legacy - See Implant Description [place] Description:Device Manufactu rer - [employer] [place] [employer] Body Location - Other. n/a. Device Status Text - [id number]. Stent Vbx [id number] - Flores [id number] Implanted:Qty: 1 on 03/04/2017 Vascular Graft Other/Legacy - See Implant Description [place] Description:Device Manufactu rer - [employer] [place] [employer] Body Location - Other. n/a. Device Status Text - [id number]. Stent Zilver Ptx 6mm X 40mm - [place] [id number] Implanted:Qty: 1 on 04/04/2017 Vascular Stent Other/Legacy - See Implant Description [employer] Description:Device Manufactu [place]uz[place]a - Lycera. Body Location - Other. Left. Device Status Text - [id number]. Stent Zilver Ptx 6mm X 60mm - [place] [id number] Implanted:Qty: 1 on 04/04/2017 Vascular Stent Other/Legacy - See Implant Description [employer] Description:Device Manufactu rer - [employer]. Body Location - Other. Left. Device Status Text - [id number]. Stent Zilver Ptx 6mm X 80mm - [place] [id number] Implanted:Qty: 1 on 08/31/2017 Vascular Stent Right: Other/Legacy - See Implant Description [employer] / [id number] / Description:Device Manufactu rer - [employer]. Body Location - Right. Device Status Text - [id number]. Stent Zilver Ptx 6mm X 40mm - [place] [id number] Implanted:Qty: 1 on 08/31/2017 Vascular Stent Right: Other/Legacy - See Implant Description [employer] / [id number] / Description:Device Manufactu rer - [employer]. Body Location - Right. Device Status Text - [id number]. Stnt Innova Otw [id number] - [id number] Implanted:Qty: 1 on 04/18/2018 by Kemar Velásquez M.B.B.S. at [facility] Vascular Stent [employer] 05/23/2020 [id number] / / [id number] Stnt Innova Otw [id number] - [id number] Implanted:Qty: 1 on 05/11/2019 by Kemar Velásquez M.B.B.S. at [facility] Vascular Stent Left: Leg [employer] 09/05/2020 [id number] / / [id number] Procedures Procedure Name Priority Date/Time Associated Diagnosis [...] Renal Disease Acidosis Metabolic Hyperchloremic Atherosclerosis Of [place] Arteries Of Extremities With Intermittent Claudication Right [...] Renal Function Panel (02/17/2023 9:35 AM CDT) [facility] Potassium, P 4.4 3.6 - 5.2 mmol/L [...] AM CDT 02/17/2023 11:01 AM CDT Narrative [facility] - 02/17/2023 4:02 PM CDT Specimen Information: Specimen ID: [id number] Specimen Type: Blood Specimen Collection Start Date: 02/17/2023 ??9:35 AM Specimen Received Date: 02/17/2023 11:01 AM Specimen ID: [id number] Specimen Type: Blood Specimen Collection Start Date: 02/17/2023 ??9:35 AM Specimen Received Date: 02/17/2023 ??3:35 PM Haseeb Menon Jr., D.O. LAB BLOOD AD D-ON [facility] [address] [place] [address], [facility] OWAT [facility] [place] [address] [place] [address] AUST [facility] [address] [place] [address] * HCV Ab Scrn w/Reflex to HCV PCR, Serum (02/17/2023 9:35 AM CDT) HCV Ab Screen, S Negative Negative 02/18/20 23 3:35 PM CDT [facility] Comment: Biotin has been identified by the employee benefits manager as a potential interfering substance. Higher concentrations of biotin may be found in multivitamins, hair/nail supplements, and workout supplements. If the result does not match clinical observations, repeat testing after patient refrains from the use of supplements for at least 12 hours. Blood (Blood, Venous) 02/17/2023 9:35 AM CDT 02/17/2023 2:20 PM CDT Narrative [facility] - 02/17/2023 3:35 PM CDT Specimen Information: Specimen ID: [id number] Specimen Type: Blood Specimen Collection Start Date: 02/17/2023 ??9:35 AM Specimen Received Date: 02/17/2023 ??2:20 PM Specimen ID: [id number] Specimen Type: Blood Specimen Collection Start Date: 02/17/2023 ??9:35 AM Specimen Received Date: 02/17/2023 ??2:16 PM Haseeb Menon Jr., D.O. LAB MICROBIO LOGY - BLOOD ORDERABLES Performing Organization Address City[facility] [[email or web address]] Co de Phone Number [facility] [address] [place] [address], [facility] MKTO [facility] [place] [address] [place] [address] * (ABNORMAL) Albumin, Random, Urine (02/17/2023 9:26 AM CDT) Microalbumin 895.0 mg/L 02/17/2023 1:53 PM CDT OWAT Creatinine 42 mg/dL 02/17/2023 12:50 PM CDT [facility] Albumin/Creatinin e Ratio 2131(H) <17 mg/g 02/17/2023 1:53 PM CDT [facility] Urine (Urine, Voided) 02/17/2023 9:26 AM CDT 02/17/2023 11:00 AM CDT Haseeb Menon Jr., D.O. LAB URINE OR DERABLES Performing Organization Address City/[facility]/ZIP Co de Phone Number [facility] [address] [place] [address], [facility] OWAT [facility] [place] [address] [place] [address] * (ABNORMAL) Hemoglobin A1c (11/25/2022 2:09 PM [...] Menon Jr., D.O. LAB BLOOD AD D-ON [facility] [address], [place] [address], [facility] OWAT [facility] [place] [address], [place] [address] * (ABNORMAL) Lipid Panel (02/10/2021 8:27 AM [...] CDT Kemar Reyes LAB BLOOD ADD-ON [facility] [address] [place] [address], [facility] DTL [facility] [place] [address] [place] [address] * CT Abdomen Pelvis Angiogram with IV [...] Advance Directives For more information, please contact: [phone] * Full Code (Latest Code Status on [...] Answer Comments Full Code: Discussed Care Teams Principal Data Architect Relationship Specialty Start Date End Date Elsewhere, Pcp PCP - General Family Medicine 01/29/20
--- OUTSIDE RECORDS SUMMARY | 2023-12-20 10:01 | XMS_ITS ---
Author Organization [facility] Address [address] [place] [address] Care Team Providers Care Casing Tier Name Role Phone Unavailable Unavailable Unavailable Surgery Details Not on file Complications Check Surgery Details section. Procedure Estimated Blood Loss Check Surgery Details section. Procedure Findings Check Surgery Details section. Procedure Specimens Taken Check Surgery Details section.
--- OUTSIDE RECORDS SUMMARY | 2023-12-20 10:01 | XMS_ITS | Clinical Summary ---
Author Organization [facility] Address [address] [place] [address] Care Team Providers Care Educational Therapist Name Role Phone Elsewhere, Pcp Primary Care Provider Unavailabl e Source Comments Patient records contain information from all sites at [facility]. For routine questions regarding patient records, call [phone] during business hours, M-F 8:00 AM - 5:00 PM Central Time. Record requests for emergency care only can be directed to [phone] at any time.[facility] Allergies Active Allergy Reactions Criticality Noted Date Comments Gabapentin Other (see comments) Medium 08/04/2020 Dizzy, memory issue Morphine Itching,Rash Medium 02/14/2012 itchy Pregabalin Anaphylaxis High 02/16/2017 swell Fmscusm-Lli-Rki Reductase Inhibitors Myalgia Low 02/13/2014 Medications Medication [...] ONE CAPSULE BY MOUTH EVERY DAY BUSINESS INTELLIGENCE REPORTING ANALYST 01/14/2022 Active allopurinoL (ZYLOPRIM) 100 mg tablet [...] 04/21/2018 Restless Leg Syndrome 01/12/2018 Atherosclerosis Of [place] Ar teries Of Extremities With Intermittent Claudication Right Leg 08/08/2017 Hyperlipidemia 07/22/2017 Ulcer Leg Left 04/19/2017 Ulcer Toe Left 04/19/2017 Atherosclerosis Of [place] Ar teries Of Left Leg With Ulceration Of Unspecified Site 04/19/2017 Peripheral Arterial Disease 02/16/2017 Hypertension NOS 02/16/2017 Hypertensive Chronic Kidney Disease With Stage 1 Through Stage 4 Chronic Kidney Disease, Or Unspecified Chronic Kidney Disease 09/23/2016 Overview (10/05/2016): Hypertension (HTN) And CKD Stage 1-4 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 Body Location - Other. Vascular. Device Status Text - [id number]. Ocular Lens-10/29/2007 Implanted:10/28 by Nato Dougherty APRN, C.N.P., R.N. 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 Device Status Text - [id number]. Stent Vbx [id number] - Flores [id number] Implanted:Qty: 1 on 03/04/2017 Vascular Graft Other/Legacy - See Implant Description [place] Description:Device Manufactu rer - [employer] Body Location - Other. n/a. Device Status Text - [id number]. Stent Vbx [id number] - Flores [id number] Implanted:Qty: 1 on 03/04/2017 Vascular Graft Other/Legacy - See Implant Description [place] Description:Device Manufactu rer - [employer] Body Location - Other. n/a. Device Status Text - [id number]. Stent Zilver Ptx 6mm X 40mm - Flores [id number] Implanted:Qty: 1 on 04/04/2017 Vascular Stent Other/Legacy - See Implant Description [employer] Description:Device Manufactu rer - [employer]. Body Location - Other. Left. Device Status Text - [id number]. Stent Zilver Ptx 6mm X 60mm - Flores [id number] Implanted:Qty: 1 on 04/04/2017 Vascular Stent Other/Legacy - See Implant Description [employer] Description:Device Manufactu rer - [employer]. Body Location - Other. Left. Device Status Text - [id number]. Stent Zilver Ptx 6mm X 80mm - Flores [id number] Implanted:Qty: 1 on 08/31/2017 Vascular Stent Right: Other/Legacy - See Implant Description [employer] / [id number] / Description:Device Manufactu rer - [employer]. Body Location - Right. Device Status Text - [id number]. Stent Zilver Ptx 6mm X 40mm - Flores [id number] Implanted:Qty: 1 on 08/31/2017 Vascular Stent Right: Other/Legacy - See Implant Description [employer] / [id number] / Description:Device Manufactu rer - [employer]. Body Location - Right. Device Status Text - [id number]. [facility] Innova Otw [id number] - [id number] Implanted:Qty: 1 on 04/18/2018 by Kemar Velásquez M.B.BFeiSFei at [facility] Vascular Stent [employer] 05/23/2020 [id number] / / [id number] [facility] Madi Otw [id number] - [id number] Implanted:Qty: 1 on 05/11/2019 by Kemar Velásquez M.B.B.S. at [facility] Vascular Stent Left: Leg [employer] 09/05/2020 [id number] / / [id number] Procedures Procedure Name Priority Date/Time Associated Diagnosis [...] Renal Disease Acidosis Metabolic Hyperchloremic Atherosclerosis Of [place] Arteries Of Extremities With Intermittent Claudication Right [...] Function Panel (02/17/2023 9:35 AM CDT) Pathologist [facility] Potassium, P 4.4 3.6 - 5.2 mmol/L [...] AM CDT 02/17/2023 11:01 AM CDT Narrative [facility] - 02/17/2023 4:02 PM CDT Specimen Information: Specimen ID: [id number] Specimen Type: Blood Specimen Collection Start Date: 02/17/2023 ??9:35 AM Specimen Received Date: 02/17/2023 11:01 AM Specimen ID: [id number] Specimen Type: Blood Specimen Collection Start Date: 02/17/2023 ??9:35 AM Specimen Received Date: 02/17/2023 ??3:35 PM Haseeb Menon Jr., D.O. LAB BLOOD AD D-ON [facility] [address] [place] [address], [facility] OWAT [facility] [place] [address] [place] [address] AUST Ramón Lab - [facility] [address] [place] [address] * HCV Ab Scrn w/Reflex to HCV PCR, Serum (02/17/2023 9:35 AM CDT) [facility] HCV Ab Screen, S Negative Negative 02/18/20 3:35 PM CDT MKTO Comment: Biotin has been identified by the brilliandeer lopper as a potential interfering substance. Higher concentrations of biotin may be found in multivitamins, hair/nail supplements, and workout supplements. If the result does not match clinical observations, repeat testing after patient refrains from the use of supplements for at least 12 hours. Blood (Blood, Venous) 02/17/2023 9:35 AM CDT 02/17/2023 2:20 PM CDT Narrative [facility] - 02/17/2023 3:35 PM CDT Specimen Information: Specimen ID: [id number] Specimen Type: Blood Specimen Collection Start Date: 02/17/2023 ??9:35 AM Specimen Received Date: 02/17/2023 ??2:20 PM Specimen ID: [id number] Specimen Type: Blood Specimen Collection Start Date: 02/17/2023 ??9:35 AM Specimen Received Date: 02/17/2023 ??2:16 PM Haseeb Menon Jr., D.O. LAB MICROBIO LOGY - BLOOD ORDERABLES Performing Organization Address City/[facility]/ZIP Co de Phone Number [facility] [address] [place] [address], [place] MKTO [facility] [place] [address] [place] [address] * (ABNORMAL) Albumin, Random, Urine (02/17/2023 9:26 AM CDT) Microalbumin 895.0 mg/L 02/17/2023 1:53 PM CDT OWAT Creatinine 42 mg/dL 02/17/2023 12:50 PM CDT OWAT Albumin/Creatinin e Ratio 2131(H) <17 mg/g 02/17/2023 1:53 PM CDT OWAT Urine (Urine, Voided) 02/17/2023 9:26 AM CDT 02/17/2023 11:00 AM CDT Haseeb Menon Jr., D.O. LAB URINE OR DERABLES Performing Organization Address City/[facility] Co de Phone Number [facility] [address] [place] [address], [facility] OWAT [facility] [place] [address] [place] [address] * (ABNORMAL) Hemoglobin A1c (11/25/2022 2:09 PM [...] D.O. LAB BLOOD AD D-ON [facility] [address] [place] [address], [facility] OW[facility] [place] [address] [place] [address] * (ABNORMAL) Lipid Panel (02/10/2021 8:27 AM [...] AM CDT Kemar Reyes LAB BLOOD ADD-ON [facility] [address] [place] [address], [facility] [address] [place] [address] * CT Abdomen Pelvis Angiogram with IV [...] Advance Directives For more information, please contact: [phone] * Full Code (Latest Code Status on [...] Answer Comments Full Code: Discussed Care Teams Educational Therapist Relationship Specialty Start Date End Date Elsewhere, Pcp PCP - General Family Medicine 01/29/20
--- OUTSIDE RECORDS SUMMARY | 2023-12-20 10:01 | XMS_ITS | Encounter Summary ---
Author Organization [facility] Address [address] [place] [address] Care Team Providers Care Change Room Attendant Name Role Phone Elsewhere, Pcp Primary Care Provider Unavailabl e Encounter Details Date Type Department Care Team (Late st Contact Info) Description 09/13/2023 Documentation Division of Nephrology and Hypertension in [place], [place] [address] [place] [address] Haseeb Menon Jr., D.O. [address] [place] [address] Social History Tobacco Use Types Packs/Day Years [...] How often do you attend tenriism or catholic serv ices? 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/2021 8:13 PM DIRECT CARE PROFESSIONAL Gender Identity Male 08/31/2019 2:40 PM CDT Sexual Orientation Straight 08/31/2019 2: 40 PM CDT documented as of this encounter Progress Notes * Haseeb Menon Jr., D.O. - 09/13/2023 9:30 AM CDT Care coordination-dialysis visit: Please see the sure scripts tab, in Care everywhere or the documents tab regarding his full dialysis notes from the [facility] Dialysis home program. Fair amount of confusion [...] as of this encounter Care Teams Change Room Attendant Relationship Specialty Start Date End Date Elsewhere, Pcp PCP - General Family Medicine 01/29/20 documented as of this encounter
--- OUTSIDE RECORDS SUMMARY | 2023-12-20 10:01 | XMS_ITS | Encounter Summary ---
Author Organization [facility] Address [address] [place] [address] Care Team Providers Care Customer Marketing Intern Name Role Phone Elsewhere, Pcp Primary Care Provider Unavailabl e Encounter Details Date Type Department Care Team (Late st Contact Info) Description 08/19/2016 Historical Ophthalmology [facility] Chalo Holland Jr., M.D. 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 Gender Identity Male 08/31/2019 2:40 PM [...] IOL OU CDM Reports - EYEGEN Id: [id number] Status: Fnl documented in this encounter Plan of Treatment Not on file documented as of this encounter Visit Diagnoses Not on filedocumented in this encounter Additional Health Concerns Infection Onset Date Last Indicated Resolved Time COVID19 Pending 05/08/2020 05/08/2020 05/08/2020 2 :44 PM CLOTH GRADER SUPERVISOR Assessment Noted Time PHQ-9 Depression Total Score: 7 08/17/19 17 9:01 AM CDT documented as of this encounter Care Teams Customer Marketing Intern Relationship Specialty Start Date End Date Elsewhere, Pcp PCP - General Family Medicine 01/29/20 documented as of this encounter
== END 2023-12-20 09:59 | disposition home or self-care (01) ==
LOC: WOUND 09:59
PROVIDERS: PCP Family Medicine; Visit Provider Nurse Practitioner Family
DX: E11.621 Type 2 diabetes mellitus with foot ulcer (principal); L97.518 Non-pressure chronic ulcer of other part of right foot with other specified severity; E11.22 Type 2 diabetes mellitus with diabetic chronic kidney disease; N18.5 Chronic kidney disease, stage 5; Z96.41 Presence of insulin pump (external) (internal); Z99.2 Dependence on renal dialysis
CPT/HCPCS: 15275; Q4121

== ENCOUNTER 2023-12-27 10:25 | Outpatient (CLI) | payer MEDICARE, BC, SELFPAY ==
--- OUTSIDE RECORDS SUMMARY | 2023-12-27 10:28 | XMS_ITS | Clinical Summary ---
Author Organization [facility] Address [address] [place] [address] Care Team Providers Care Head Chef Name Role Phone Elsewhere, Pcp Primary Care Provider Unavailabl e Source Comments Patient records contain information from all sites at [facility]. For routine questions regarding patient records, call [phone] during business hours, M-F 8:00 AM - 5:00 PM Central Time. 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 01/14/2022 Active allopurinoL (ZYLOPRIM) 100 mg tablet [...] 04/21/2018 Restless Leg Syndrome 01/12/2018 Atherosclerosis Of [place] Ar teries Of Extremities With Intermittent Claudication Right Leg 08/08/2017 Hyperlipidemia 07/22/2017 Ulcer Leg Left 04/19/2017 Ulcer Toe Left 04/19/2017 Atherosclerosis Of [place] Ar teries Of Left Leg With Ulceration Of Unspecified Site 04/19/2017 Peripheral Arterial Disease 02/16/2017 Hypertension NOS 02/16/2017 Hypertensive Chronic Kidney Disease With Stage 1 Through Stage 4 Chronic Kidney Disease, Or Unspecified Chronic Kidney Disease 09/23/2016 Overview (10/05/2016): Hypertension (HTN) And CKD Stage 1-4 Dental Surgeon Use Of Insulin Active 09/23/2016 Overview (10/05/2016): Dental Surgeon Use Of Insulin Active Depression Major Recurrent [...] often do you attend oriental orthodox or jehovah's witness serv ices? Never 03/24/2021 [...] Answer Date Recorded PHQ-2 Score 0 10/20/2018 [facility] [place] of Occupat ional Health - Occupational Stress [...] situation today? I have a [facility] place to live 10/26/2022 Education Answer Date Recorded What is the highest level of school you have completed or the highest degree you have received? 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 Body Location - Other. Vascular. Device Status Text - [id number]. Ocular Lens-10/29/2007 Implanted:10/28 by Nato Dougherty APRN, C.N.P., R.N. 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 Device Status Text - [id number]. Stent Vbx [id number] - Flores [id number] Implanted:Qty: 1 on 03/04/2017 Vascular Graft Other/Legacy - See Implant Description [place] Description:Device Manufactu rer - [employer] [place] [employer] Body Location - Other. n/a. Device Status Text - [id number]. Stent Vbx [id number] - [id number] Implanted:Qty: 1 on 03/04/2017 Vascular Graft Other/Legacy - See Implant Description [place] Description:Device Manufactu rer - [employer] [place] [employer] Body Location - Other. n/a. Device Status Text - [id number]. Stent Zilver Ptx 6mm X 40mm - Flores [id number] Implanted:Qty: 1 on 04/04/2017 Vascular Stent Other/Legacy - See Implant Description [employer] Description:Device Manufactu rer - [employer]. Body Location - Other. Left. Device Status Text - [id number]. Stent Zilver Ptx 6mm X 60mm - Flores [id number] Implanted:Qty: 1 on 04/04/2017 Vascular Stent Other/Legacy - See Implant Description [employer] Description:Device Manufactu rer - [employer]. Body Location - Other. Left. Device Status Text - [id number]. Stent Zilver Ptx 6mm X 80mm - Flores [id number] Implanted:Qty: 1 on 08/31/2017 Vascular Stent Right: Other/Legacy - See Implant Description [employer] / [id number] / Description:Device Manufactu rer - [employer]. Body Location - Right. Device Status Text - [id number]. Stent Zilver Ptx 6mm X 40mm - Flores [id number] Implanted:Qty: 1 on 08/31/2017 Vascular Stent Right: Other/Legacy - See Implant Description [employer] / [id number] / Description:Device Manufactu rer - [employer]. Body Location - Right. Device Status Text - [id number]. [facility] Innova Otw [id number] - [id number] Implanted:Qty: 1 on 04/18/2018 by Kemar Velásquez M.B.BFeiSFei at [facility] Vascular Stent [employer] 05/23/2020 [id number] / / [id number] [facility] Madi Otw [id number] - [id number] Implanted:Qty: 1 on 05/11/2019 by Kemar Velásquez M.B.B.S. at [facility] Vascular Stent Left: Leg [employer] 09/05/2020 [id number] / / [id number] Procedures Procedure Name Priority Date/Time Associated Diagnosis [...] Renal Disease Acidosis Metabolic Hyperchloremic Atherosclerosis Of [place] Arteries Of Extremities With Intermittent Claudication [...] AM CDT 02/17/2023 11:01 AM CDT Narrative [facility] - 02/17/2023 4:02 PM CDT Specimen Information: Specimen ID: [id number] Specimen Type: Blood Specimen Collection Start Date: 02/17/2023 ??9:35 AM Specimen Received Date: 02/17/2023 11:01 AM Specimen ID: [id number] Specimen Type: Blood Specimen Collection Start Date: 02/17/2023 ??9:35 AM Specimen Received Date: 02/17/2023 ??3:35 PM Haseeb Menon Jr., D.O. LAB BLOOD AD D-ON [facility] [address] [place] [address], [facility] OWAT [facility] [place] [address] [place] [address] AUST Ramón Lab - [facility] [address] [place] [address] * HCV Ab Scrn w/Reflex to HCV PCR, Serum (02/17/2023 9:35 AM CDT) [facility] HCV Ab Screen, S Negative Negative 02/18/20 3:35 PM CDT MKTO Comment: Biotin has been identified by the fiber optic splicer as a potential interfering substance. Higher concentrations [...] 3:35 PM CDT Specimen Information: Specimen ID: [id number] Specimen Type: Blood Specimen Collection Start Date: 02/17/2023 ??9:35 AM Specimen Received Date: 02/17/2023 ??2:20 PM Specimen ID: [id number] Specimen Type: Blood Specimen Collection Start Date: 02/17/2023 ??9:35 AM Specimen Received Date: 02/17/2023 ??2:16 PM Haseeb Menon Jr., D.O. LAB MICROBIO LOGY - BLOOD ORDERABLES Performing Organization Address City/[facility]/ZIP Co de Phone Number [facility] [address] [place] [address], [place] MKTO [facility] [place] [address] [place] [address] * (ABNORMAL) Albumin, Random, Urine (02/17/2023 9:26 AM CDT) Microalbumin 895.0 mg/L 02/17/2023 1:53 PM CDT OWAT Creatinine 42 mg/dL 02/17/2023 12:50 PM CDT OWAT Albumin/Creatinin e Ratio 2131(H) <17 mg/g 02/17/2023 1:53 PM CDT OWAT Urine (Urine, Voided) 02/17/2023 9:26 AM CDT 02/17/2023 11:00 AM CDT Haseeb Menon Jr., D.O. LAB URINE OR DERABLES Performing Organization Address City/[facility] Co de Phone Number [facility] [address] [place] [address], [facility] OWAT [facility] [place] [address] [place] [address] * (ABNORMAL) Hemoglobin A1c (11/25/2022 2:09 PM [...] BLOOD AD D-ON [facility] [address] [place] [address], [facility] OW[facility] [place] [address], [place] [address] * (ABNORMAL) Lipid Panel (02/10/2021 8:27 AM [...] AM CDT Kemar Reyes LAB BLOOD ADD-ON [facility] [address] [place] [address], [facility] [address] [place] [address] * CT Abdomen Pelvis Angiogram with IV [...] stent. ADDITIONAL FINDINGS: Pancreatic atrophy. Procedure Note Bbo Liu M.D. - 03/15/2018 EXAM: CT ABDOMEN [...] Advance Directives For more information, please contact: [phone] * Full Code (Latest Code Status on [...] Answer Comments Full Code: Discussed Care Teams Head Chef Relationship Specialty Start Date End Date Elsewhere, Pcp PCP - General Family Medicine 01/29/20
--- OUTSIDE RECORDS SUMMARY | 2023-12-27 10:28 | XMS_ITS | Referral Summary ---
Author Organization [facility] Address [address] [place] [address] Care Team Providers Care Lab Analyst Name Role Phone Elsewhere, Pcp Primary Care Provider Unavailabl e Source Comments Patient records contain information from all sites at [facility]. For routine questions regarding patient records, call [phone] during business hours, M-F 8:00 AM - 5:00 PM Central Time. 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 01/14/2022 Active allopurinoL (ZYLOPRIM) 100 mg tablet [...] 04/21/2018 Restless Leg Syndrome 01/12/2018 Atherosclerosis Of [place] Of Extremities With Intermittent Claudication Right Leg 08/08/2017 Hyperlipidemia 07/22/2017 Ulcer Leg Left 04/19/2017 Ulcer Toe Left 04/19/2017 Atherosclerosis [place] Of Left Leg With Ulceration Of Unspecified Site 04/19/2017 Peripheral Arterial Disease 02/16/2017 Hypertension NOS 02/16/2017 Hypertensive Chronic Kidney Disease With Stage 1 Through Stage 4 Chronic Kidney Disease, Or Unspecified Chronic Kidney Disease 09/23/2016 Overview (10/05/2016): Hypertension (HTN) And CKD Stage 1-4 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 Body Location - Other. Vascular. Device Status Text - [id number]. Ocular Lens-10/29/2007 Implanted:10/28 by Nato Dougherty, JULIÁN, C.N.P., R.N. 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 Device Status Text - [id number]. Stent Vbx [id number] - Flores [id number] Implanted:Qty: 1 on 03/04/2017 Vascular Graft Other/Legacy - See Implant Description [place] Description:Device Manufactu rer - W [employer] [place] [employer] Body Location - Other. n/a. Device Status Text - [id number]. Stent Vbx [id number] - Flores [id number] Implanted:Qty: 1 on 03/04/2017 Vascular Graft Other/Legacy - See Implant Description [place] Description:Device Manufactu rer - W [employer] [place] [employer] Body Location - Other. n/a. Device Status Text - [id number]. Stent Zilver Ptx 6mm X 40mm - Flores [id number] Implanted:Qty: 1 on 04/04/2017 Vascular Stent Other/Legacy - See Implant Description [employer] Description:Device Manufactu Infinisource - Moya Okruga. Body Location - Other. Left. Device Status Text - [id number]. Stent Zilver Ptx 6mm X 60mm - Flores [id number] Implanted:Qty: 1 on 04/04/2017 Vascular Stent Other/Legacy - See Implant Description [employer] Description:Device Manufactu rer - [employer]. Body Location - Other. Left. Device Status Text - [id number]. Stent Zilver Ptx 6mm X 80mm - Flores [id number] Implanted:Qty: 1 on 08/31/2017 Vascular Stent Right: Other/Legacy - See Implant Description [employer]. / [id number] / Description:Device Manufactu rer - [employer]. Body Location - Right. Device Status Text - [id number]. Stent Zilver Ptx 6mm X 40mm - [place] [id number] Implanted:Qty: 1 on 08/31/2017 Vascular Stent Right: Other/Legacy - See Implant Description [employer]. / [id number] / Description:Device Manufactu rer - [employer]. Body Location - Right. Device Status Text - [id number]. Stnt Innova Otw [id number] - [id number] Implanted:Qty: 1 on 04/18/2018 by Kemar Velásquez M.B.B.S. at [facility] Vascular Stent [employer] 05/23/2020 [id number] / / [id number] Stnt Innova Otw [id number] - [id number] Implanted:Qty: 1 on 05/11/2019 by Kemar Velásquez M.B.B.S. at [facility] Vascular Stent Left: Leg [employer] 09/05/2020 [id number] / / [id number] Procedures Procedure Name Priority Date/Time Associated Diagnosis [...] Renal Disease Acidosis Metabolic Hyperchloremic Atherosclerosis Of [place] Arteries Of Extremities With Intermittent Claudication Right [...] Renal Function Panel (02/17/2023 9:35 AM CDT) [facility] Potassium, P 4.4 3.6 - 5.2 [...] AM CDT 02/17/2023 11:01 AM CDT Narrative [facility] - 02/17/2023 4:02 PM CDT Specimen Information: Specimen ID: [id number] Specimen Type: Blood Specimen Collection Start Date: 02/17/2023 ??9:35 AM Specimen Received Date: 02/17/2023 11:01 AM Specimen ID: [id number] Specimen Type: Blood Specimen Collection Start Date: 02/17/2023 ??9:35 AM Specimen Received Date: 02/17/2023 ??3:35 PM Haseeb Menon Jr., D.O. LAB BLOOD AD D-ON [facility] [address] [place] [address], [facility] OWAT [facility] [place] [address] [place] [address] AUST [facility] - [facility] [address] [place] [address] * HCV Ab Scrn w/Reflex to HCV PCR, Serum (02/17/2023 9:35 AM CDT) HCV Ab Screen, S Negative Negative 02/18/20 23 3:35 PM CDT MKTO Comment: Biotin has been identified by the cnc operator as a potential interfering substance. Higher concentrations of biotin may be found in multivitamins, hair/nail supplements, and workout supplements. If the result does not match clinical observations, repeat testing after patient refrains from the use of supplements for at least 12 hours. Blood (Blood, Venous) 02/17/2023 9:35 AM CDT 02/17/2023 2:[address] [facility] - 02/17/2023 3:35 PM CDT Specimen Information: Specimen ID: [id number] Specimen Type: Blood Specimen Collection Start Date: 02/17/2023 ??9:35 AM Specimen Received Date: 02/17/2023 ??2:20 PM Specimen ID: [id number] Specimen Type: Blood Specimen Collection Start Date: 02/17/2023 ??9:35 AM Specimen Received Date: 02/17/2023 ??2:16 PM Haseeb Menon Jr., D.O. LAB MICROBIO LOGY - BLOOD ORDERABLES Performing Organization Address City/[facility] Co de Phone Number [facility] [address] [place] [address], [facility] MKTO [facility] [place] [address] [place] [address] * (ABNORMAL) Albumin, Random, Urine (02/17/2023 9:26 AM CDT) Microalbumin 895.0 mg/L 02/17/2023 1:53 PM CDT OW[facility] Creatinine 42 mg/dL 02/17/2023 12:50 PM CDT [facility] Albumin/Creatinin e Ratio 2131(H) <17 mg/g 02/17/2023 1:53 PM CDT [facility] Urine (Urine, Voided) 02/17/2023 9:26 AM CDT 02/17/2023 11:00 AM CDT Haseeb Menon Jr., D.O. LAB URINE OR DERABLES Performing Organization Address City/[facility]/ZIP Co de Phone Number [facility] [address] [place] [address], [facility] OW[address] [facility] [place] [address] [place] [address] * (ABNORMAL) Hemoglobin A1c (11/25/2022 2:09 PM [...] Menon Jr., D.O. LAB BLOOD AD D-ON [facility] [address], [place] [address], [facility] [address] [facility] [place] [address], [place] [address] * (ABNORMAL) Lipid Panel (02/10/2021 8:27 AM [...] AM CDT Kemar Reyes LAB BLOOD ADD-ON [facility] [address] [place] [address], [facility] DTL [facility] [address] [place] [address] * CT Abdomen Pelvis Angiogram with IV [...] Advance Directives For more information, please contact: [phone] * Full Code (Latest Code Status on [...] Answer Comments Full Code: Discussed Care Teams Lab Analyst Relationship Specialty Start Date End Date Elsewhere, Pcp PCP - General Family Medicine 01/29/20
--- OUTSIDE RECORDS SUMMARY | 2023-12-27 10:28 | XMS_ITS | Clinical Summary ---
Author Organization [facility] Address [place], [place] [address] Care Team Providers Care Cullet Crusher And Washer Name Role Phone Casa Lucia MD Unavailable Unavailable Rudy Riddle MD Unavailable [phone] Rudy Riddle MD Primary Care Provider + Allergies Active Allergy Reactions Criticality Noted Date Comments Gabapentin Other - Describe In Comment Field Medium 08/04/2020 Dizzy, memory issue Dizzy, memory issue Morphine Itching 02/04/2010 After 3 days of use Pregabalin Anaphylaxis,Itching High 02/16/2017 swetesfaye jane Fmucaxx-Wek-Pwx Reductase Inhibitors Myalgia 02/13/2014 Medications Medication Sig [...] Comments Blood Pressure 162/87 07/21/2022 9:21 PM 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 Pulse 100 07/21/2022 9:21 PM 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 Temperature 37.1 ??C (98.8 ??F) 07/21/2022 8:51 PM CS T Respiratory Rate 18 07/21/2022 8:51 PM 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 Oxygen Saturation 96% 07/21/2022 9:21 PM 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 Inhaled Oxygen Concentration - - Weight 83.9 kg (185 lb) 07/21/2022 5:35 PM 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 Height 175.3 cm (5' 9) 07/21/2022 5:35 PM 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 Body Mass Index 27.32 07/21/2022 5:35 PM 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 Plan of Treatment Health Maintenance Due Date [...] age 77 05/12/203205/12, 02/04/2006 (Completed outside of [facility]) Tdap Completed 08/16/2016 Pneumococcal series for age 65+ Completed 04/24/2018, 04/11/2017, 02/14/2012, Additional history exists Goals Goal Patient Goal Type Associated Problems Recent Progress Patient-Stated? Author BLOOD PRESSURE - MAINTAINS BP less than 140/90 Blood Pressure No Rudy Riddle MD Procedures Procedure Name Priority Date/Time Associated Diagnosis Comments COLONOSCOPY 05/12/2022 8:51 AM 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 LIPID PANEL W REFLEX MEASURED LDL Routine 02/16/2016 8:59 AM CDT Hyperlipidemia, unspecified hyperlipidemia type from Last 3 Months or Most Recently Relevant to Health Maintenance Results * COLONOSCOPY (05/12/2022 8:51 AM 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) 05/12/2022 8:51 AM 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 Narrative Transcriptions Lukas West MD - 05/12/2022 9:03 AM [facility] Patient Name: Onesimo Walton Procedure Date: 05/12/2022 Gender: Male Date of : 1950 Admit Type: Inpatient Procedure: Colonoscopy Proceduralist: Lukas West MD [facility] [place] Indications/Pre-Op Diagnosis: Anemia. Bacteremia Medications: Monitored Anesthesia Care Procedure Description: The patient had risks, benefits and alternatives explained to andgave informed consent. The patient had a stable cardiopulmonary status and judged an adequate candidate for conscious sedation. The [facility]-H190DL [id number] endoscope was passed through the anus and [...] - 199 mg/dL 02/16/2016 11:02 AM CDT [facility] TRIGLYCERIDES 232(H) <150 mg/dL 02/16/2016 11:02 AM CDT [facility] HDL CHOLESTEROL 31(L) >40 mg/dL 02/16/2016 11:02 AM CDT [facility] NON-HDL CHOLESTEROL 147(H) <145 mg/dl 02/16/2016 11:02 AM CDT [facility] CHOL/HDL RATIO 5.74(H) <4.50 02/16/2016 11:02 AM CDT [facility] LDL CHOLESTEROL 101 <=130 mg/dL 02/16/2016 11:02 AM CDT [facility] PATIENT STATUS FASTING 02/16/2016 11:02 AM CDT [facility] Blood BLOOD SPECIMEN / Unknown Venipuncture / Unknown 02/16/2016 8:59 AM CDT 02/16/2016 8:59 AM CDT Rudy Riddle MD CHEMISTRY [facility] [address] [place] [address] [facility] [address] [place] [address], [place] [phone] from Last 3 Months or Most Recently [...] Preferences, Provider to review later Care Teams Cullet Crusher And Washer Relationship Specialty Start Date End Date Rudy Riddle MD [address] [place] [address] PCP - General Family Practice 05/25/22 Casa Lucia MD [address] [place] [address] Ophthalmology Ophthalmology Surgery 12/22/11 Rudy Riddle MD [address] [place] [address] Family Practice 05/07/22
--- OUTSIDE RECORDS SUMMARY | 2023-12-27 10:28 | XMS_ITS ---
Author Organization [facility] Address [address] [place] [address] Care Team Providers Care Stroke Belt Sander Operator Name Role Phone Unavailable Unavailable Unavailable Surgery Details Not on file Complications Check Surgery Details section. Procedure Estimated Blood Loss Check Surgery Details section. Procedure Findings Check Surgery Details section. Procedure Specimens Taken Check Surgery Details section.
--- OUTSIDE RECORDS SUMMARY | 2023-12-27 10:28 | XMS_ITS | Encounter Summary ---
Author Organization [facility] Address [address] [place] [address] Care Team Providers Care Talent Director Name Role Phone Elsewhere, Pcp Primary Care Provider Unavailabl e Encounter Details Date Type Department Care Team (Late st Contact Info) Description 08/19/2016 Historical Ophthalmology [facility] Chalo Holland Jr., M.D. 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 Gender Identity Male 08/31/2019 2:40 PM [...] IOL OU CDM Reports - EYEGEN Id: [id number] Status: Fnl documented in this encounter Plan of Treatment Not on file documented as of this encounter Visit Diagnoses Not on filedocumented in this encounter Additional Health Concerns Infection Onset Date Last Indicated Resolved Time COVID19 Pending 05/08/2020 05/08/2020 05/08/2020 2 :44 PM SALES PERFORMANCE ANALYST Assessment Noted Time PHQ-9 Depression Total Score: 7 08/17/19 17 9:01 AM CDT documented as of this encounter Care Teams Talent Director Relationship Specialty Start Date End Date Elsewhere, Pcp PCP - General Family Medicine 01/29/20 documented as of this encounter
--- OUTSIDE RECORDS SUMMARY | 2023-12-27 10:28 | XMS_ITS | Encounter Summary ---
Author Organization [facility] Address [address] [place] [address] Care Team Providers Care Gear Keeper Name Role Phone Elsewhere, Pcp Primary Care Provider Unavailabl e Reason for Visit * Reason Onset Date Comments Hypertension 09/09/2023 Encounter Details Date Type Department Care Team (Latest Contact Info) Description 09/09/2023 Clinical Communication Division of Nephrology and Hypertension in [place], [place] [address] [place] [address] Haseeb Menon Jr., D.O. [address] [place] [address] Hypertension Social History Tobacco Use Types Packs/Day [...] How often do you attend islam or baptism serv ices? 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
== END 2023-12-27 10:26 | disposition home or self-care (01) ==
LOC: WOUND 10:26
PROVIDERS: PCP Family Medicine; Visit Provider Physician Assistant Surgical
DX: E11.621 Type 2 diabetes mellitus with foot ulcer (principal); L97.512 Non-pressure chronic ulcer of other part of right foot with fat layer exposed; N18.5 Chronic kidney disease, stage 5; E11.22 Type 2 diabetes mellitus with diabetic chronic kidney disease; Z96.41 Presence of insulin pump (external) (internal); Z99.2 Dependence on renal dialysis
CPT/HCPCS: 11042

== ENCOUNTER 2024-01-03 10:29 | Outpatient (CLI) | payer MEDICARE, BC, SELFPAY ==
--- OUTSIDE RECORDS SUMMARY | 2024-01-03 10:31 | XMS_ITS | Clinical Summary ---
Author Organization [facility] Address [place], [place] [address] Care Team Providers Care Golf Course Assistant Name Role Phone Casa Lucia MD Unavailable Unavailable Rudy Riddle MD Unavailable [phone] Rudy Riddle MD Primary Care Provider + Allergies Active Allergy Reactions Criticality Noted Date Comments Gabapentin Other - Describe In Comment Field Medium 08/04/2020 Dizzy, memory issue Dizzy, memory issue Morphine Itching 02/04/2010 After 3 days of use Pregabalin Anaphylaxis,Itching High 02/16/2017 swetesfaye jane Huxwxjr-Pqo-Pjw Reductase Inhibitors Myalgia 02/13/2014 Medications Medication Sig [...] Comments Blood Pressure 162/87 07/21/2022 9:21 PM RATE CLERK Pulse 100 07/21/2022 9:21 PM RATE CLERK Temperature 37.1 ??C (98.8 ??F) 07/21/2022 8:51 PM CS T Respiratory Rate 18 07/21/2022 8:51 PM RATE CLERK Oxygen Saturation 96% 07/21/2022 9:21 PM RATE CLERK Inhaled Oxygen Concentration - - Weight 83.9 kg (185 lb) 07/21/2022 5:35 PM RATE CLERK Height 175.3 cm (5' 9) 07/21/2022 5:35 PM RATE CLERK Body Mass Index 27.32 07/21/2022 5:35 PM RATE CLERK Plan of Treatment Health Maintenance Due [...] 77 05/12/203205/12, 02/04/2006 (Completed outside of [facility]) Tdap Completed 08/16/2016 Pneumococcal series for age 65+ Completed 04/24/2018, 04/11/2017, 02/14/2012, Additional history exists Goals Goal Patient Goal Type Associated Problems Recent Progress Patient-Stated? Author BLOOD PRESSURE - MAINTAINS BP less than 140/90 Blood Pressure No Rudy Riddle MD Procedures Procedure Name Priority Date/Time Associated Diagnosis Comments COLONOSCOPY 05/12/2022 8:51 AM RATE CLERK LIPID PANEL W REFLEX MEASURED LDL Routine 02/16/2016 8:59 AM CDT Hyperlipidemia, unspecified hyperlipidemia type from Last 3 Months or Most Recently Relevant to Health Maintenance Results * COLONOSCOPY (05/12/2022 8:51 AM RATE CLERK) 05/12/2022 8:51 AM RATE CLERK Narrative Transcriptions Lukas West MD - 05/12/2022 9:03 AM [facility] Patient Name: Onesimo Walton Procedure Date: 05/12/2022 Gender: Male Date of : 1950 Admit Type: Inpatient Procedure: Colonoscopy Proceduralist: Lukas West MD [facility] [place] Indications/Pre-Op Diagnosis: Anemia. Bacteremia Medications: Monitored Anesthesia Care Procedure Description: The patient had risks, benefits and alternatives explained to andgave informed consent. The patient had a stable cardiopulmonary status and judged an adequate candidate for conscious sedation. The [facility]-H190DL [id number] endoscope was passed through the anus and [...] - 199 mg/dL 02/16/2016 11:02 AM CDT [facility] TRIGLYCERIDES 232(H) <150 mg/dL 02/16/2016 11:02 AM CDT [facility] HDL CHOLESTEROL 31(L) >40 mg/dL 02/16/2016 11:02 AM CDT [facility] NON-HDL CHOLESTEROL 147(H) <145 mg/dl 02/16/2016 11:02 AM CDT [facility] CHOL/HDL RATIO 5.74(H) <4.50 02/16/2016 11:02 AM CDT [facility] LDL CHOLESTEROL 101 <=130 mg/dL 02/16/2016 11:02 AM CDT [facility] PATIENT STATUS FASTING 02/16/2016 11:02 AM CDT [facility] Blood BLOOD SPECIMEN / Unknown Venipuncture / Unknown 02/16/2016 8:59 AM CDT 02/16/2016 8:59 AM CDT Rudy Riddle MD CHEMISTRY [facility] [address] [place] [address] [facility] [address] [place] [address], [place] [phone] from Last 3 Months or Most Recently [...] Preferences, Provider to review later Care Teams Golf Course Assistant Relationship Specialty Start Date End Date Rudy Riddle MD [address] [place] [address] PCP - General Family Practice 05/25/22 Casa Lucia MD [address] [place] [address] Ophthalmology Ophthalmology Surgery 12/22/11 Rudy Riddle MD [address] [place] [address] Family Practice 05/07/22
--- OUTSIDE RECORDS SUMMARY | 2024-01-03 10:31 | XMS_ITS | Clinical Summary ---
Author Organization [facility] Address [address] [place] [address] Care Team Providers Care Command Post Craftsman Name Role Phone Elsewhere, Pcp Primary Care Provider Unavailabl e Source Comments Patient records contain information from all sites at [facility]. For routine questions regarding patient records, call [phone] during business hours, M-F 8:00 AM - 5:00 PM Central Time. Record requests for emergency care only can be directed to [phone] at any time.[facility] Allergies Active Allergy Reactions Criticality Noted Date Comments Gabapentin Other (see comments) Medium 08/04/2020 Dizzy, memory issue Morphine Itching,Rash Medium 02/14/2012 itchy Pregabalin Anaphylaxis High 02/16/2017 swell Acnnlue-Cqk-Gvk Reductase Inhibitors Myalgia Low 02/13/2014 Medications Medication [...] ONE CAPSULE BY MOUTH EVERY DAY SUPERVISOR PLATE PASTING 01/14/2022 Active allopurinoL (ZYLOPRIM) 100 mg tablet [...] 04/21/2018 Restless Leg Syndrome 01/12/2018 Atherosclerosis Of [place] Ar 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 08/08/2017 Hyperlipidemia 07/22/2017 Ulcer Leg Left 04/19/2017 Ulcer Toe Left 04/19/2017 Atherosclerosis Of [place] Ar teries Of Left Leg With Ulceration Of Unspecified Site 04/19/2017 Peripheral Arterial Disease 02/16/2017 Hypertension NOS 02/16/2017 Hypertensive Chronic Kidney Disease With Stage 1 Through Stage 4 Chronic Kidney Disease, Or Unspecified Chronic Kidney Disease 09/23/2016 Overview (10/05/2016): Hypertension (HTN) And CKD Stage 1-4 Market Analysis Director Use Of Insulin Active 09/23/2016 Overview (10/05/2016): Market Analysis Director Use Of Insulin Active Depression Major Recurrent [...] 0 10/20/2018 [facility] [place] of Occupat ional Health - Occupational Stress [...] living situation today? I have a [facility] place to live 10/26/2022 Education Answer Date Recorded What is the highest level of school you have completed or the highest degree you have received? 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/2021 8:13 PM CONTACT ASSEMBLER Gender Identity Male 08/31/2019 2:40 PM [...] 02/14/2023, 11/17/2022 Medical Devices Implanted Type Area Wire Walker Device Identifier Shelf Expiration Date Model / Serial / Lot Patch Vasc Bovine.08cm X 8cm - Flores [id number] Implanted:Qty: 1 on 04/04/2017 Mesh or Patch Other/Legacy - See Implant Description Synovis Description:Device Manufactu [facility]. Body Location - Other. Vascular. Device Status Text - [id number]. Ocular Lens-10/29/2007 Implanted:10/28 by Nato Dougherty APRN, C.N.P., R.N. (Quantity not on file) Ocular Lens Bilateral: Eye Description:Cataract extract ion and insertion of intraocular lens 06/22/2016 09:27 - NATO DOUGHERTY SENIOR DATABASE PROGRAMMER ACCOUNT EXECUTIVE TRAINEE bilateral Conversions - Default Historical Implant Device [...] 6mm X 29mm X 135cm - Flores [id number] Implanted:Qty: 1 on 03/04/2017 Vascular Graft [place] Description:Device Manufactu rer - [employer]. Device Status Text - [id number]. Stent Vbx [id number] - Flores [id number] Implanted:Qty: 1 on 03/04/2017 Vascular Graft Other/Legacy - See Implant Description [place] Description:Device Manufactu rer - [employer] Body Location - Other. n/a. Device Status Text - [id number]. Stent Vbx [id number] - Flores [id number] Implanted:Qty: 1 on 03/04/2017 Vascular Graft Other/Legacy - See Implant Description [place] Description:Device Manufactu rer - [employer] Body Location - Other. n/a. Device Status Text - [id number]. Stent Zilver Ptx 6mm X 40mm - Flores [id number] Implanted:Qty: 1 on 04/04/2017 Vascular Stent Other/Legacy - See Implant Description [employer]. Description:Device Manufactu rer - [employer]. Body Location - Other. Left. Device Status Text - [id number]. Stent Zilver Ptx 6mm X 60mm - Flores [id number] Implanted:Qty: 1 on 04/04/2017 Vascular Stent Other/Legacy - See Implant Description [employer]. Description:Device Manufactu rer - [employer]. Body Location - Other. Left. Device Status Text - [id number]. Stent Zilver Ptx 6mm X 80mm - Flores [id number] Implanted:Qty: 1 on 08/31/2017 Vascular Stent Right: Other/Legacy - See Implant Description [employer]. / [id number] / Description:Device Manufactu rer - [employer]. Body Location - Right. Device Status Text - [id number]. Stent Zilver Ptx 6mm X 40mm - Flores [id number] Implanted:Qty: 1 on 08/31/2017 Vascular Stent Right: Other/Legacy - See Implant Description [employer]. / [id number] / Description:Device Manufactu rer - [employer]. Body Location - Right. Device Status Text - [id number]. [facility] Innova Otw [id number] - [id number] Implanted:Qty: 1 on 04/18/2018 by Kemar Velásquez M.B.BFeiSFei at [facility] Vascular Stent [employer] 05/23/2020 [id number] / / [id number] [facility] Madi Otw [id number] - [id number] Implanted:Qty: 1 on 05/11/2019 by Kemar Velásquez M.B.B.S. at [facility] Vascular Stent Left: Leg [employer] 09/05/2020 [id number] / / [id number] Procedures Procedure Name Priority Date/Time Associated Diagnosis [...] Renal Disease Acidosis Metabolic Hyperchloremic Atherosclerosis Of [place] Arteries Of Extremities With Intermittent Claudication Right [...] (02/17/2023 9:35 AM CDT) Pathologist [facility] Potassium, P 4.4 3.6 - 5.2 [...] 02/17/2023 11:01 AM CDT Narrative [facility] - 02/17/2023 4:02 PM CDT Specimen Information: Specimen ID: [id number] Specimen Type: Blood Specimen Collection Start Date: 02/17/2023 ??9:35 AM Specimen Received Date: 02/17/2023 11:01 AM Specimen ID: [id number] Specimen Type: Blood Specimen Collection Start Date: 02/17/2023 ??9:35 AM Specimen Received Date: 02/17/2023 ??3:35 PM Haseeb Menon Jr., D.O. LAB BLOOD AD D-ON [facility] [address] [place] [address], [facility] OWAT [facility] [address] [place] [address] AUST [facility] [address] [place] [address] * HCV Ab Scrn w/Reflex to HCV PCR, Serum (02/17/2023 9:35 AM CDT) [facility] HCV Ab Screen, S Negative Negative 02/18/20 3:35 PM CDT MKTO Comment: Biotin has been identified by the kitchen steward as a potential interfering substance. Higher concentrations of biotin may be found in multivitamins, hair/nail supplements, and workout supplements. If the result does not match clinical observations, repeat testing after patient refrains from the use of supplements for at least 12 hours. Blood (Blood, Venous) 02/17/2023 9:35 AM CDT 02/17/2023 2:20 PM CDT Narrative [facility] - 02/17/2023 3:35 PM CDT Specimen Information: Specimen ID: [id number] Specimen Type: Blood Specimen Collection Start Date: 02/17/2023 ??9:35 AM Specimen Received Date: 02/17/2023 ??2:20 PM Specimen ID: [id number] Specimen Type: Blood Specimen Collection Start Date: 02/17/2023 ??9:35 AM Specimen Received Date: 02/17/2023 ??2:16 PM Haseeb Menon Jr., D.O. LAB MICROBIO LOGY - BLOOD ORDERABLES Performing Organization Address City/[facility]/ZIP Co de Phone Number [facility] [address] [place] [address], [place] MKTO [facility] [address] [place] [address] * (ABNORMAL) Albumin, Random, Urine (02/17/2023 9:26 AM CDT) Microalbumin 895.0 mg/L 02/17/2023 1:53 PM CDT OWAT Creatinine 42 mg/dL 02/17/2023 12:50 PM CDT OWAT Albumin/Creatinin e Ratio 2131(H) <17 mg/g 02/17/2023 1:53 PM CDT [facility] Urine (Urine, Voided) 02/17/2023 9:26 AM CDT 02/17/2023 11:00 AM CDT Haseeb Menon Jr., D.O. LAB URINE OR DERABLES Performing Organization Address City/[facility] Co de Phone Number [facility] [address] [place] [address], [facility] OW[place] [facility] [address] [place] [address] * (ABNORMAL) Hemoglobin A1c (11/25/2022 2:09 PM [...] D.O. LAB BLOOD AD D-ON [facility] [address] [place] [address], [facility] OWAT [facility] [address], [place] [address] * (ABNORMAL) Lipid Panel (02/10/2021 8:27 AM [...] AM CDT Kemar Reyes LAB BLOOD ADD-ON [facility] [address] [place] [address], [facility] [address] [place] [address] * CT Abdomen Pelvis Angiogram with IV [...] Advance Directives For more information, please contact: [phone] * Full Code (Latest Code Status on [...] Answer Comments Full Code: Discussed Care Teams Command Post Craftsman Relationship Specialty Start Date End Date Elsewhere, Pcp PCP - General Family Medicine 01/29/20
--- OUTSIDE RECORDS SUMMARY | 2024-01-03 10:32 | XMS_ITS | Encounter Summary ---
Author Organization [facility] Address [address] [place] [address] Care Team Providers Care Antique Furniture Repairer Name Role Phone Elsewhere, Pcp Primary Care Provider Unavailabl e Encounter Details Date Type Department Care Team (Late st Contact Info) Description 08/19/2016 Historical Ophthalmology [facility] Chalo Holland Jr., M.D. [address] [place] [address] Social History Tobacco Use Types Packs/Day Years Used Date Smoking Tobacco: Every Day Sex and Gender Information Value Date Recorded Sex Assigned at Male 03/24/2021 8:13 PM CARDIOLOGY MANAGER Gender Identity Male 08/31/2019 2:40 PM [...] IOL OU CDM Reports - EYEGEN Id: [id number] Status: Fnl documented in this encounter Plan of Treatment Not on file documented as of this encounter Visit Diagnoses Not on filedocumented in this encounter Additional Health Concerns Infection Onset Date Last Indicated Resolved Time COVID19 Pending 05/08/2020 05/08/2020 05/08/2020 2 :44 PM CARDIOLOGY MANAGER Assessment Noted Time PHQ-9 Depression Total Score: 7 08/17/19 17 9:01 AM CDT documented as of this encounter Care Teams Antique Furniture Repairer Relationship Specialty Start Date End Date Elsewhere, Pcp PCP - General Family Medicine 01/29/20 documented as of this encounter
--- OUTSIDE RECORDS SUMMARY | 2024-01-03 10:32 | XMS_ITS ---
Author Organization [facility] Address [address] [place] [address] Care Team Providers Care Final Armature Tester Name Role Phone Unavailable Unavailable Unavailable Surgery Details Not on file Complications Check Surgery Details section. Procedure Estimated Blood Loss Check Surgery Details section. Procedure Findings Check Surgery Details section. Procedure Specimens Taken Check Surgery Details section.
--- OUTSIDE RECORDS SUMMARY | 2024-01-03 10:32 | XMS_ITS | Encounter Summary ---
Author Organization [facility] Address [address] [place] [address] Care Team Providers Care Sales And Retail Management Recruiter Name Role Phone Elsewhere, Pcp Primary Care Provider Unavailabl e Reason for Visit * Reason Onset Date Comments Hypertension 09/09/2023 Encounter Details Date Type Department Care Team (Latest Contact Info) Description 09/09/2023 Clinical Communication Division of Nephrology and Hypertension in [place], [place] [address] [place] [address] Haseeb Menon Jr., D.O. [address] [place] [address] Hypertension Social History Tobacco Use Types Packs/Day [...] How often do you attend denominational or jewish serv ices? Never 03/24/2021 Do [...] at Male 03/24/2021 8:13 PM DIRECTOR OF COMPENSATION Gender Identity Male 08/31/2019 2:40 PM CDT Sexual Orientation Straight 08/31/2019 2: 40 PM CDT documented as of this encounter Miscellaneous Notes * Telephone Encounter - Danica Fowler - 09/09/2023 3:49 PM CDT Caller is: patient Preferred Communication Method: [phone] (mobile) Reason for call: Blood Pressure: BP [...] as of this encounter Care Teams Sales And Retail Management Recruiter Relationship Specialty Start Date End Date Elsewhere, Pcp PCP - General Family Medicine 01/29/20 documented as of this encounter
--- OUTSIDE RECORDS SUMMARY | 2024-01-03 10:32 | XMS_ITS | Referral Summary ---
Author Organization [facility] Address [address] [place] [address] Care Team Providers Care Director Workforce Management Name Role Phone Elsewhere, Pcp Primary Care Provider Unavailabl e Source Comments Patient records contain information from all sites at [facility]. For routine questions regarding patient records, call [phone] during business hours, M-F 8:00 AM - 5:00 PM Central Time. Record requests for emergency care only can be directed to [phone] at any time.[facility] Allergies Active Allergy Reactions Criticality Noted Date Comments Gabapentin Other (see comments) Medium 08/04/2020 Dizzy, memory issue Morphine Itching,Rash Medium 02/14/2012 itchy Pregabalin Anaphylaxis High 02/16/2017 swell Kytpatu-Iud-Nts Reductase Inhibitors Myalgia Low 02/13/2014 Medications Medication [...] TAKE ONE CAPSULE BY MOUTH EVERY DAY CORE LOADER 01/14/2022 Active allopurinoL (ZYLOPRIM) 100 mg tablet [...] (10/05/2016): Hypertension (HTN) And CKD Stage 1-4 Food Production Worker Use Of Insulin Active 09/23/2016 Overview (10/05/2016): Food Production Worker Use Of Insulin Active Depression Major [...] How often do you attend pentecostalism or restoration serv ices? Never 03/24/2021 Do [...] Answer Date Recorded PHQ-2 Score 0 10/20/2018 [facility] [place] of Occupat ional Health - Occupational Stress [...] Sex Assigned at Male 03/24/2021 8:13 PM LEADITE HEATER Gender Identity Male 08/31/2019 2:40 PM CDT [...] on file Medical Devices Implanted Type Area Commercial Loan Specialist Device Identifier Shelf Expiration Date Model / Serial / Lot Patch Vasc Bovine.08cm X 8cm - Flores [id number] Implanted:Qty: 1 on 04/04/2017 Mesh or Patch Other/Legacy - See Implant Description Synovis Description:Device Manufactu rer - Synovis. Body Location - Other. Vascular. Device Status Text - [id number]. Ocular Lens-10/29/2007 Implanted:10/28 by Nato Dougherty, JULIÁN, C.N.P., R.N. (Quantity not on file) Ocular Lens Bilateral: Eye Description:Cataract extract ion and insertion of intraocular lens 06/22/2016 09:27 - NATO DOUGHERTY MUSHROOM CULTIVATOR DEVELOPMENT TECHNICAL LEAD bilateral Conversions - Default Historical Implant Device [...] 6mm X 29mm X 135cm - Flores [id number] Implanted:Qty: 1 on 03/04/2017 Vascular Graft [place] Description:Device Manufactu [employer] - [employer]. Device Status Text - [id number]. Stent Vbx [id number] - Flores [id number] Implanted:Qty: 1 on 03/04/2017 Vascular Graft Other/Legacy - See Implant Description [place] Description:Device Manufactu rer - [employer] Body Location - Other. n/a. Device Status Text - [id number]. Stent Vbx [id number] - Flores [id number] Implanted:Qty: 1 on 03/04/2017 Vascular Graft Other/Legacy - See Implant Description [place] Description:Device Manufactu rer - [employer] Body Location - Other. n/a. Device Status Text - [id number]. Stent Zilver Ptx 6mm X 40mm - Flores [id number] Implanted:Qty: 1 on 04/04/2017 Vascular Stent Other/Legacy - See Implant Description [employer] Description:Device Manufactu [employer] - [facility]. Body Location - Other. Left. Device Status Text - [id number]. Stent Zilver Ptx 6mm X 60mm - Flores [id number] Implanted:Qty: 1 on 04/04/2017 Vascular Stent Other/Legacy - See Implant Description [employer] Description:Device Manufactu rer - [employer]. Body Location - Other. Left. Device Status Text - [id number]. Stent Zilver Ptx 6mm X 80mm - Flores [id number] Implanted:Qty: 1 on 08/31/2017 Vascular Stent Right: Other/Legacy - See Implant Description [employer] / [id number] / Description:Device Manufactu rer - [employer]. Body Location - Right. Device Status Text - [id number]. Stent Zilver Ptx 6mm X 40mm - Flores [id number] Implanted:Qty: 1 on 08/31/2017 Vascular Stent Right: Other/Legacy - See Implant Description [employer]. / [id number] / Description:Device Manufactu rer - [employer]. Body Location - Right. Device Status Text - [id number]. Stnt Innova Otw [id number] - [id number] Implanted:Qty: 1 on 04/18/2018 by Kemar Velásquez M.B.B.S. at [facility] Vascular Stent [employer] 05/23/2020 [id number] / / [id number] Stnt Innova Otw [id number] - [id number] Implanted:Qty: 1 on 05/11/2019 by Kemar Velásquez M.B.B.S. at [facility] Vascular Stent Left: Leg [employer]end[employer] 09/05/2020 [id number] / [id number] Procedures Procedure Name Priority Date/Time Associated Diagnosis [...] Renal Function Panel (02/17/2023 9:35 AM CDT) [facility] Potassium, P 4.4 3.6 - 5.2 [...] 4:02 PM CDT Specimen Information: Specimen ID: [id number] Specimen Type: Blood Specimen Collection Start Date: 02/17/2023 ??9:35 AM Specimen Received Date: 02/17/2023 11:01 AM Specimen ID: [id number] Specimen Type: Blood Specimen Collection Start Date: 02/17/2023 ??9:35 AM Specimen Received Date: 02/17/2023 ??3:35 PM Haseeb Menon Jr., D.O. LAB BLOOD AD D-ON [facility] [address] [place] [address], [facility] OWAT [facility] [address] [place] [address] AUST [place] [facility] [address] [place] [address] * HCV Ab Scrn w/Reflex to HCV PCR, Serum (02/17/2023 9:35 AM CDT) HCV Ab Screen, S Negative Negative 02/18/20 23 3:35 PM CDT MKTO Comment: Biotin has been identified by the student life coordinator as a potential interfering substance. Higher concentrations of biotin may be found in multivitamins, hair/nail supplements, and workout supplements. If the result does not match clinical observations, repeat testing after patient refrains from the use of supplements for at least 12 hours. Blood (Blood, Venous) 02/17/2023 9:35 AM CDT 02/17/2023 2:20 PM CDT Narrative [facility] - 02/17/2023 3:35 PM CDT Specimen Information: Specimen ID: [id number] Specimen Type: Blood Specimen Collection Start Date: 02/17/2023 ??9:35 AM Specimen Received Date: 02/17/2023 ??2:20 PM Specimen ID: [id number] Specimen Type: Blood Specimen Collection Start Date: 02/17/2023 ??9:35 AM Specimen Received Date: 02/17/2023 ??2:16 PM Haseeb Menon Jr., D.O. LAB MICROBIO LOGY - BLOOD ORDERABLES Performing Organization Address City/[facility] Co de Phone Number [facility] [address] [place] [address], [facility] MKTO [facility] [place] [address] [place] [address] * (ABNORMAL) Albumin, Random, Urine (02/17/2023 9:26 AM CDT) Microalbumin 895.0 mg/L 02/17/2023 1:53 PM CDT OWAT Creatinine 42 mg/dL 02/17/2023 12:50 PM CDT OWAT Albumin/Creatinin e Ratio 2131(H) <17 mg/g 02/17/2023 1:53 PM CDT OWAT Urine (Urine, Voided) 02/17/2023 9:26 AM CDT 02/17/2023 11:00 AM CDT Haseeb Menon Jr., D.O. LAB URINE OR DERABLES Performing Organization Address City/[facility]/ZIP Co de Phone Number [facility] [address] [place] [address], [facility] OW[place] [facility] [address] [place] [address] * (ABNORMAL) Hemoglobin A1c (11/25/2022 2:09 PM [...] D.O. LAB BLOOD AD D-ON [facility] [address], [place] [address], [facility] [facility] [place] [address], [place] [address] * (ABNORMAL) Lipid Panel (02/10/2021 8:27 AM [...] CDT Kemar Reyes LAB BLOOD ADD-ON [facility] [address] [place] [address], [facility] DTL [facility] [address] [place] [address] * CT Abdomen Pelvis Angiogram with IV [...] Advance Directives For more information, please contact: [phone] * Full Code (Latest Code Status on [...] Answer Comments Full Code: Discussed Care Teams Director Workforce Management Relationship Specialty Start Date End Date Elsewhere, Pcp PCP - General Family Medicine 01/29/20
== END 2024-01-03 10:30 | disposition home or self-care (01) ==
LOC: WOUND 10:29
PROVIDERS: PCP Family Medicine; Visit Provider Nurse Practitioner Family
DX: E11.621 Type 2 diabetes mellitus with foot ulcer (principal); L97.518 Non-pressure chronic ulcer of other part of right foot with other specified severity; E11.22 Type 2 diabetes mellitus with diabetic chronic kidney disease; N18.5 Chronic kidney disease, stage 5; Z96.41 Presence of insulin pump (external) (internal); Z99.2 Dependence on renal dialysis
CPT/HCPCS: 97597

== ENCOUNTER 2024-01-10 09:52 | Outpatient (CLI) | payer MEDICARE, BC, SELFPAY ==
--- OUTSIDE RECORDS SUMMARY | 2024-01-10 09:55 | XMS_ITS | Encounter Summary ---
Author Organization [facility] Address [address] [place] [address] Care Team Providers Care Chocolate Temperer Name Role Phone Elsewhere, Pcp Primary Care Provider Unavailabl e Reason for Visit * Reason Onset Date Comments Hypertension 09/09/2023 Encounter Details Date Type Department Care Team (Latest Contact Info) Description 09/09/2023 Clinical Communication Division of Nephrology and Hypertension in [place], [place] [address] [place] [address] Haseeb Menon Jr., D.O. [address] [place] [address] Hypertension Social History Tobacco Use Types Packs/Day [...] often do you attend mormon or mandaeism serv ices? 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/2021 8:13 PM EMD SPECIAL EDUCATION TEACHER Gender Identity Male 08/31/2019 2:40 PM CDT Sexual Orientation Straight 08/31/2019 2: 40 PM CDT documented as of this encounter Miscellaneous Notes * Telephone Encounter - Danica Fowler - 09/09/2023 3:49 PM CDT Caller is: patient Preferred Communication Method: [phone] (mobile) Reason for call: Blood Pressure: BP [...] documented as of this encounter Care Teams Chocolate Temperer Relationship Specialty Start Date End Date Elsewhere, Pcp PCP - General Family Medicine 01/29/20 documented as of this encounter
--- OUTSIDE RECORDS SUMMARY | 2024-01-10 09:55 | XMS_ITS | Clinical Summary ---
Author Organization [facility] Address [address] [place] [address] Care Team Providers Care Weight Caller Name Role Phone Elsewhere, Pcp Primary Care Provider Unavailabl e Source Comments Patient records contain information from all sites at [facility]. For routine questions regarding patient records, call [phone] during business hours, M-F 8:00 AM - 5:00 PM Central Time. 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 01/14/2022 Active allopurinoL (ZYLOPRIM) 100 mg [...] 04/21/2018 Restless Leg Syndrome 01/12/2018 Atherosclerosis Of [place] Ar teries Of Extremities With Intermittent Claudication Right Leg 08/08/2017 Hyperlipidemia 07/22/2017 Ulcer Leg Left 04/19/2017 Ulcer Toe Left 04/19/2017 Atherosclerosis [place] Ar teries Of Left Leg With Ulceration Of Unspecified Site 04/19/2017 Peripheral Arterial Disease 02/16/2017 Hypertension NOS 02/16/2017 Hypertensive Chronic Kidney Disease With Stage 1 Through Stage 4 Chronic Kidney Disease, Or Unspecified Chronic Kidney Disease 09/23/2016 Overview (10/05/2016): Hypertension (HTN) And CKD Stage 1-4 Campaign Advisor Use Of Insulin Active 09/23/2016 Overview (10/05/2016): Campaign Advisor Use Of Insulin Active Depression Major Recurrent Moderate 06/22/2016 Overview (10/05/2016): Depression Major Recurrent Moderate Diabetes Mellitus Type 2 Wit h Other Circulatory Complication 06/22/2016 Overview (10/05/2016): DM2 Peripheral Neuropathy Uncontrolled Encounters Date Type Department Care Team Description 01/05/2024 Orders Only Department of Vascular Medicine in [place], [place] [address] [place] [address] Jayjay Pak P.A.-C. Follow Up Examination Status Post Surgery (Primary Dx); Peripheral Arterial Disease (HCC) from Last 3 Months Immunizations Name Administration [...] How often do you attend moravian or church serv ices? 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 Gender Identity Male 08/31/2019 2:40 PM [...] 05/16/2023 Hemoglobin A1C 05/28/2023 11/25/2022, 04/2 08/2022, 05/06/2022, Additional history exists Influenza Vaccine (#1) 2024 , 03/17/2022, 03/24/2021, Additional history exists Creatinine Level (Kidney Fun ction Test) 02/18/2024 02/17/2023, 02/16/2023, 01/11/2023, Additional history exists Potassium Level 02/18/2024 02/17/2023, 0 08/2022, 01/11/2023, Additional history exists Sodium Level 02/18/2024 02/17/2023, 0 08/2022, 01/11/2023, Additional history exists Urine Albumin [...] 02/14/2023, 11/17/2022 Medical Devices Implanted Type Area County Tax Assessor Device Identifier Shelf Expiration Date Model / Serial / Lot Patch Vasc Bovine.08cm X 8cm - Flores [id number] Implanted:Qty: 1 on 04/04/2017 Mesh or Patch Other/Legacy - See Implant Description Synovis Description:Device Manufactu rer - Synovis. Body Location - Other. Vascular. Device Status Text - [id number]. Ocular Lens-10/29/2007 Implanted:10/28 by Nato Dougherty APRN, C.N.P., R.N. 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 Device Status Text - [id number]. Stent Vbx [id number] - [place] [id number] Implanted:Qty: 1 on 03/04/2017 Vascular Graft Other/Legacy - See Implant Description [place] Description:Device Manufactu rer - [employer] Body Location - Other. n/a. Device Status Text - [id number]. Stent Vbx [id number] - [place] [id number] Implanted:Qty: 1 on 03/04/2017 Vascular Graft Other/Legacy - See Implant Description [place] Description:Device Manufactu rer - [employer] Body Location - Other. n/a. Device Status Text - [id number]. Stent Zilver Ptx 6mm X 40mm - [place] [id number] Implanted:Qty: 1 on 04/04/2017 Vascular Stent Other/Legacy - See Implant Description [employer]. Description:Device Manufactu [employer] - [employer]. Body Location - Other. Left. Device Status Text - [id number]. Stent Zilver Ptx 6mm X 60mm - Flores [id number] Implanted:Qty: 1 on 04/04/2017 Vascular Stent Other/Legacy - See Implant Description [employer]. Description:Device Manufactu rer - [employer]. Body Location - Other. Left. Device Status Text - [id number]. Stent Zilver Ptx 6mm X 80mm - [place] [id number] Implanted:Qty: 1 on 08/31/2017 Vascular Stent Right: Other/Legacy - See Implant Description [employer]. / [id number] / Description:Device Manufactu rer - [employer]. Body Location - Right. Device Status Text - [id number]. Stent Zilver Ptx 6mm X 40mm - [place] [id number] Implanted:Qty: 1 on 08/31/2017 Vascular Stent Right: Other/Legacy - See Implant Description [employer]. / [id number] / Description:Device Manufactu rer - [employer]. Body Location - Right. Device Status Text - [id number]. Stnt Innova Otw [id number] - [id number] Implanted:Qty: 1 on 04/18/2018 by Kemar Velásquez M.B.B.S. at [facility] Vascular Stent [employer] 05/23/2020 [id number] / / [id number] Stnt Innova Otw [id number] - [id number] Implanted:Qty: 1 on 05/11/2019 by Kemar Velásquez M.B.B.S. at [facility] Vascular Stent Left: Leg [place] [employer] 09/05/2020 [id number] / / [id number] Procedures Procedure Name Priority Date/Time Associated Diagnosis [...] Renal Disease Acidosis Metabolic Hyperchloremic Atherosclerosis Of [place] Arteries Of Extremities With Intermittent Claudication Right [...] 02/17/2023 11:01 AM CDT Narrative [facility] - 02/17/2023 4:02 PM CDT Specimen Information: Specimen ID: [id number] Specimen Type: Blood Specimen Collection Start Date: 02/17/2023 ??9:35 AM Specimen Received Date: 02/17/2023 11:01 AM Specimen ID: [id number] Specimen Type: Blood Specimen Collection Start Date: 02/17/2023 ??9:35 AM Specimen Received Date: 02/17/2023 ??3:35 PM Haseeb Menon Jr., D.O. LAB BLOOD AD D-ON [facility] [address] [place] [address], [facility] in [facility] [address] [place] [address] AUST [facility] [address] [place] [address] * HCV Ab Scrn w/Reflex to HCV PCR, Serum (02/17/2023 9:35 AM CDT) HCV Ab Screen, S Negative Negative 02/18/20 3:35 PM CDT [facility] Comment: Biotin has been identified by the layer out as a potential interfering substance. Higher concentrations of biotin may be found in multivitamins, hair/nail supplements, and workout supplements. If the result does not match clinical observations, repeat testing after patient refrains from the use of supplements for at least 12 hours. Blood (Blood, Venous) 02/17/2023 9:35 AM CDT 02/17/2023 2:20 PM CDT Narrative [facility] - 02/17/2023 3:35 PM CDT Specimen Information: Specimen ID: [id number] Specimen Type: Blood Specimen Collection Start Date: 02/17/2023 ??9:35 AM Specimen Received Date: 02/17/2023 ??2:20 PM Specimen ID: [id number] Specimen Type: Blood Specimen Collection Start Date: 02/17/2023 ??9:35 AM Specimen Received Date: 02/17/2023 ??2:16 PM Haseeb Menon Jr., D.O. LAB MICROBIO LOGY - BLOOD ORDERABLES Performing Organization Address City/[facility] Co de Phone Number [facility] [address] [place] [address], [facility] in [place] [address] [place] [address] * (ABNORMAL) Albumin, Random, Urine (02/17/2023 9:26 AM CDT) Microalbumin 895.0 mg/L 02/17/2023 1:53 PM CDT [facility] Creatinine 42 mg/dL 02/17/2023 12:50 PM CDT [facility] Albumin/Creatinin e Ratio 2131(H) <17 mg/g 02/17/2023 1:53 PM CDT [facility] Urine (Urine, Voided) 02/17/2023 9:26 AM CDT 02/17/2023 11:00 AM CDT Haseeb Menon Jr., D.O. LAB URINE OR DERABLES Performing Organization Address City/[facility] Co de Phone Number [facility] [address] [place] [address], [facility] OW[facility] in [facility] [address] [place] [address] * (ABNORMAL) Hemoglobin A1c (11/25/2022 2:09 PM [...] Menon Jr., D.O. LAB BLOOD AD D-ON [facility] [address] [place] [address], [place] OW[facility] in [facility] [address] [place] [address] * (ABNORMAL) Lipid Panel (02/10/2021 8:27 AM CDT) [facility] Cholesterol, Total 102 mg/dL 2020 10:06 AM [...] AM CDT Kemar Reyes LAB BLOOD ADD-ON [facility] [address] [place] [address], [place] DTL [facility] [address] * CT Abdomen Pelvis Angiogram with IV [...] Advance Directives For more information, please contact: [phone] * Full Code (Latest Code Status on [...] Answer Comments Full Code: Discussed Care Teams Weight Caller Relationship Specialty Start Date End Date Elsewhere, Pcp PCP - General Family Medicine 01/29/20
--- OUTSIDE RECORDS SUMMARY | 2024-01-10 09:55 | XMS_ITS ---
Author Organization [facility] Address [address] [place] [address] Care Team Providers Care Commercial Pest Control Representative Name Role Phone Unavailable Unavailable Unavailable Surgery Details Not on file Complications Check Surgery Details section. Procedure Estimated Blood Loss Check Surgery Details section. Procedure Findings Check Surgery Details section. Procedure Specimens Taken Check Surgery Details section.
--- OUTSIDE RECORDS SUMMARY | 2024-01-10 09:55 | XMS_ITS | Clinical Summary ---
Author Organization [facility] Address [place], [place] [address] Care Team Providers Care Umbrella Supervisor Name Role Phone Casa Lucia MD Unavailable Unavailable Rudy Riddle MD Unavailable [phone] Rudy Riddle MD Primary Care Provider + Allergies Active Allergy Reactions Criticality Noted Date Comments Gabapentin Other - Describe In Comment Field Medium 08/04/2020 Dizzy, memory issue Dizzy, memory issue Morphine Itching 02/04/2010 After 3 days of use Pregabalin Anaphylaxis,Itching High 02/16/2017 swetesfaye jane Fbyfhtk-Yqk-Yfc Reductase Inhibitors Myalgia 02/13/2014 Medications Medication Sig [...] Comments Blood Pressure 162/87 07/21/2022 9:21 PM MEASURER MACHINE Pulse 100 07/21/2022 9:21 PM MEASURER MACHINE Temperature 37.1 ??C (98.8 ??F) 07/21/2022 8:51 PM CS T Respiratory Rate 18 07/21/2022 8:51 PM MEASURER MACHINE Oxygen Saturation 96% 07/21/2022 9:21 PM MEASURER MACHINE Inhaled Oxygen Concentration - - Weight 83.9 kg (185 lb) 07/21/2022 5:35 PM MEASURER MACHINE Height 175.3 cm (5' 9) 07/21/2022 5:35 PM MEASURER MACHINE Body Mass Index 27.32 07/21/2022 5:35 PM MEASURER MACHINE Plan of Treatment Health Maintenance Due Date [...] Associated Diagnosis Comments COLONOSCOPY 05/12/2022 8:51 AM MEASURER MACHINE LIPID PANEL W REFLEX MEASURED LDL Routine 02/16/2016 8:59 AM CDT Hyperlipidemia, unspecified hyperlipidemia type from Last 3 Months or Most Recently Relevant to Health Maintenance Results * COLONOSCOPY (05/12/2022 8:51 AM MEASURER MACHINE) 05/12/2022 8:51 AM MEASURER MACHINE Narrative Transcriptions Lukas West MD - 05/12/2022 9:03 AM [facility] Patient Name: Onesimo Walton Procedure Date: 05/12/2022 Gender: Male Date of : 1950 Admit Type: Inpatient Procedure: Colonoscopy Proceduralist: Lukas West MD [facility] Indications/Pre-Op Diagnosis: Anemia. Bacteremia Medications: Monitored Anesthesia Care Procedure Description: The patient had risks, benefits and alternatives explained to andgave informed consent. The patient had a stable cardiopulmonary status and judged an adequate candidate for conscious sedation. The [facility]-[id number] endoscope was passed through the anus and [...] - 199 mg/dL 02/16/2016 11:02 AM CDT [facility] TRIGLYCERIDES 232(H) <150 mg/dL 02/16/2016 11:02 AM CDT [facility] HDL CHOLESTEROL 31(L) >40 mg/dL 02/16/2016 11:02 AM CDT [facility] NON-HDL CHOLESTEROL 147(H) <145 mg/dl 02/16/2016 11:02 AM CDT [facility] CHOL/HDL RATIO 5.74(H) <4.50 02/16/2016 11:02 AM CDT [facility] LDL CHOLESTEROL 101 <=130 mg/dL 02/16/2016 11:02 AM CDT [facility] PATIENT STATUS FASTING 02/16/2016 11:02 AM CDT [facility] Blood BLOOD SPECIMEN / Unknown Venipuncture / Unknown 02/16/2016 8:59 AM CDT 02/16/2016 8:59 AM CDT Rudy Riddle MD CHEMISTRY [facility] [address] [place] [address] [facility] [address] [place] [address], [place] [phone] from Last 3 Months or Most Recently [...] Preferences, Provider to review later Care Teams Umbrella Supervisor Relationship Specialty Start Date End Date Rudy Riddle MD [address] [place] [address] PCP - General Family Practice 05/25/22 Casa Lucia MD [address] [place] [address] Ophthalmology Ophthalmology Surgery 12/22/11 Rudy Riddle MD [address] [place] [address] Family Practice 05/07/22
--- OUTSIDE RECORDS SUMMARY | 2024-01-10 09:55 | XMS_ITS | Referral Summary ---
Author Organization [facility] Address [address] [place] [address] Care Team Providers Care Straight Cutter Machine Name Role Phone Elsewhere, Pcp Primary Care Provider Unavailabl e Source Comments Patient records contain information from all sites at [facility]. For routine questions regarding patient records, call [phone] during business hours, M-F 8:00 AM - 5:00 PM Central Time. Record requests for emergency care only can be directed to [phone] at any time.[facility] Encounters Date Type Department Care Team Description 01/05/2024 Orders Only Department of Vascular Medicine in [place], [place] [address] [place] [address] Jayjay Pak P.A.-C. 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 01/14/2022 Active allopurinoL (ZYLOPRIM) 100 mg tablet [...] 04/21/2018 Restless Leg Syndrome 01/12/2018 Atherosclerosis Of [place] Ar teries Of Extremities With Intermittent Claudication Right Leg 08/08/2017 Hyperlipidemia 07/22/2017 Ulcer Leg Left 04/19/2017 Ulcer Toe Left 04/19/2017 Atherosclerosis Of [place] Ar teries Of Left Leg With Ulceration Of Unspecified Site 04/19/2017 Peripheral Arterial Disease 02/16/2017 Hypertension NOS 02/16/2017 Hypertensive Chronic Kidney Disease With Stage 1 Through Stage 4 Chronic Kidney Disease, Or Unspecified Chronic Kidney Disease 09/23/2016 Overview (10/05/2016): Hypertension (HTN) And CKD Stage 1-4 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 Body Location - Other. Vascular. Device Status Text - [id number]. Ocular Lens-10/29/2007 Implanted:10/28 by Nato Dougherty, JULIÁN, C.N.P., R.N. (Quantity not on file) Ocular Lens Bilateral: Eye Description:Cataract extract ion and insertion of intraocular lens 06/22/2016 09:27 - NATO DOUGHERTY SUPERVISOR FEED MILL DIRECTOR DISTRIBUTION bilateral Conversions - Default Historical Implant Device [...] 6mm X 29mm X 135cm - [place] [id number] Implanted:Qty: 1 on 03/04/2017 Vascular Graft [place] Description:Device Manufactu rer - [employer] [employer]. Device Status Text - [id number]. Stent Vbx [id number] - [place] [id number] Implanted:Qty: 1 on 03/04/2017 Vascular Graft Other/Legacy - See Implant Description [place] Description:Device Manufactu rer - [employer] [place] [employer] Body Location - Other. n/a. Device Status Text - [id number]. Stent Vbx [id number] - [place] [id number] Implanted:Qty: 1 on 03/04/2017 Vascular Graft Other/Legacy - See Implant Description [place] Description:Device Manufactu rer - [employer] [place] [employer] Body Location - Other. n/a. Device Status Text - [id number]. Stent Zilver Ptx 6mm X 40mm - Flores [id number] Implanted:Qty: 1 on 04/04/2017 Vascular Stent Other/Legacy - See Implant Description [employer] Description:Device Manufactu rer - [employer]. Body Location - Other. Left. Device Status Text - [id number]. Stent Zilver Ptx 6mm X 60mm - [place] [id number] Implanted:Qty: 1 on 04/04/2017 Vascular Stent Other/Legacy - See Implant Description [employer] Description:Device Manufactu rer - [employer]. Body Location - Other. Left. Device Status Text - [id number]. Stent Zilver Ptx 6mm X 80mm - [place] [id number] Implanted:Qty: 1 on 08/31/2017 Vascular Stent Right: Other/Legacy - See Implant Description [employer] / [id number] / Description:Device Manufactu rer - [employer]. Body Location - Right. Device Status Text - [id number]. Stent Zilver Ptx 6mm X 40mm - [place] [id number] Implanted:Qty: 1 on 08/31/2017 Vascular Stent Right: Other/Legacy - See Implant Description [employer] / [id number] / Description:Device Manufactu rer - [employer]. Body Location - Right. Device Status Text - VASCULAR-[id number]. Stnt Innova Otw [id number] - [id number] Implanted:Qty: 1 on 04/18/2018 by Kemar Velásquez M.B.B.S. at [facility] Vascular Stent [employer] 05/23/2020 [id number] / / [id number] Stnt Innova Otw [id number] - [id number] Implanted:Qty: 1 on 05/11/2019 by Kemar Velásquez M.B.B.S. at [facility] Vascular Stent Left: Leg [employer] 09/05/2020 [id number] / / [id number] Procedures Procedure Name Priority Date/Time Associated Diagnosis [...] Renal Disease Acidosis Metabolic Hyperchloremic Atherosclerosis Of [place] Arteries Of Extremities With Intermittent Claudication Right [...] AM CDT 02/17/2023 11:01 AM CDT Narrative [facility] - 02/17/2023 4:02 PM CDT Specimen Information: Specimen ID: [id number] Specimen Type: Blood Specimen Collection Start Date: 02/17/2023 ??9:35 AM Specimen Received Date: 02/17/2023 11:01 AM Specimen ID: [id number] Specimen Type: Blood Specimen Collection Start Date: 02/17/2023 ??9:35 AM Specimen Received Date: 02/17/2023 ??3:35 PM Estiven He Jr.O. LAB BLOOD AD D-ON [facility] [address] [place] [address], [facility] OW[facility] in [address] [place] [address] AUST [facility] - [facility] [address] [place] [id number] * HCV Ab Scrn w/Reflex to HCV PCR, Serum (02/17/2023 9:35 AM CDT) Pathologist [facility] HCV Ab Screen, S Negative Negative 02/18/20 3:35 PM CDT [facility] Comment: Biotin has been identified by the bowling alley attendant as a potential interfering substance. Higher concentrations of biotin may be found in multivitamins, hair/nail supplements, and workout supplements. If the result does not match clinical observations, repeat testing after patient refrains from the use of supplements for at least 12 hours. Blood (Blood, Venous) 02/17/2023 9:35 AM CDT 02/17/2023 2:20 PM CDT Narrative [facility] - 02/17/2023 3:35 PM CDT Specimen Information: Specimen ID: [id number] Specimen Type: Blood Specimen Collection Start Date: 02/17/2023 ??9:35 AM Specimen Received Date: 02/17/2023 ??2:20 PM Specimen ID: [id number] Specimen Type: Blood Specimen Collection Start Date: 02/17/2023 ??9:35 AM Specimen Received Date: 02/17/2023 ??2:16 PM Estiven He Jr.O. LAB MICROBIO LOGY - BLOOD ORDERABLES [facility] [address] [place] [address], [facility] [place] [address] * (ABNORMAL) Albumin, Random, Urine (02/17/2023 9:26 AM CDT) Pathologist [facility] Microalbumin 895.0 mg/L 02/17/2023 1:53 PM CDT [facility] Creatinine 42 mg/dL 02/17/2023 12:50 PM CDT [facility] Albumin/Creatinin e Ratio 2131(H) <17 mg/g 02/17/2023 1:53 PM CDT [facility] Urine (Urine, Voided) 02/17/2023 9:26 AM CDT 02/17/2023 11:00 AM CDT Haseeb Menon Jr., D.O. LAB URINE OR DERABLES Performing Organization Address [facility] Co de Phone Number [facility] [address] [place] [address], [facility] [place] [address] [place] [address] * (ABNORMAL) Hemoglobin A1c (11/25/2022 2:09 PM CDT) Hemoglobin A1c, B 6.2(H) 4.2 - 5.6 % 11/25/2022 4:40 PM CDT [facility] Comment: Hemoglobin A1c values of 5.7-6.4 percent indicate an increased risk for developing diabetes mellitus. In diabetic patients, HbA1c goals should be discussed with healthcare provider. Blood (Blood, Venous) 11/25/2022 2:09 PM CDT 11/25/2022 3:35 PM CDT Haseeb Menon Jr., D.O. LAB BLOOD AD D-ON Performing Organization Address [facility] Co de Phone Number [facility] [address], [place] [address], [facility] [place] [address] [place] [address] * (ABNORMAL) Lipid Panel (02/10/2021 8:27 AM [...] Reyes LAB BLOOD ADD-ON Performing Organization Address City/State/[facility] Co de Phone Number [facility] [address] [place] [address], [facility] [address] [place] [address] * CT Abdomen Pelvis Angiogram with IV [...] Left common femoral artery moderate stenosis. Kemar Ryees IMG CT PROCEDURES from Last 3 Months or Most Recently Relevant to Health Maintenance Advance Directives For more information, please contact: [phone] * Full Code (Latest Code Status on [...] Answer Comments Full Code: Discussed Care Teams Straight Cutter Machine Relationship Specialty Start Date End Date Elsewhere, Pcp PCP - General Family Medicine 01/29/20
--- OUTSIDE RECORDS SUMMARY | 2024-01-10 09:55 | XMS_ITS | Encounter Summary ---
Author Organization [facility] Address [address] [place] [address] Care Team Providers Care Bioinformatics Specialist Name Role Phone Elsewhere, Pcp Primary Care Provider Unavailabl e Reason for Referral * Outpatient (Routine) - Authorized Specialty Diagnoses / Procedures Referred By Robi t Referred To Contact Diagnoses Follow Up Examination Status Post Surgery Peripheral Arterial Disease (HCC) Procedures US Lower Extremity Artery Graft Bilateral Jayjay Pak P.A.-C. [address] [place] [address] [facility] Referral ID Status Reason Start Date Expiration Date V isits Requested Visits Authorized [id number] Authorized 01/05/2024 01/04/2025 1 1 * Outpatient (Routine) - Authorized Specialty Diagnoses / Procedures Referred By Robi t Referred To Contact Diagnoses Follow Up Examination Status Post Surgery Peripheral Arterial Disease (HCC) Procedures US Aorta Iliac Arteries Bilateral with Doppler Jayjay Pak P.A.-C. [address] [place] [address] [facility] Referral ID Status Reason Start Date Expiration Date V isits Requested Visits Authorized [id number] Authorized 01/05/2024 01/04/2025 1 1 * Outpatient (Routine) - Authorized Specialty Diagnoses / Procedures Referred By Contac t Referred To Contact Diagnoses Follow Up Examination Status Post Surgery Peripheral Arterial Disease (HCC) Procedures ECG 12 Lead Jayjay Pak P.A.-C. [address] [place] [phone] [facility] Referral ID Status Reason Start Date Expiration Date V isits Requested Visits Authorized [id number] Authorized 01/05/2024 01/04/2025 1 1 * Outpatient (Routine) - Authorized Specialty Diagnoses / Procedures Referred By Robi hong Referred To Contact Vascular Medicine Jayjay Pak P.A.-C. [address] [place] [phone] [facility] Referral ID Status Reason Start Date Expiration Date V isits Requested Visits Authorized [id number] Authorized 01/05/2024 07/06/2025 1 1 * Outpatient (Routine) - Authorized Specialty Diagnoses / Procedures Referred By Robi hong Referred To Contact Diagnoses Follow Up Examination Status Post Surgery Peripheral Arterial Disease (HCC) Procedures Lower Extremity Arterial (MIMI) - Exercise (Claudication) Jayjay Pak P.A.-C. [address] [place] [phone] [facility] Referral ID Status Reason Start Date Expiration Date V isits Requested Visits Authorized [id number] Authorized 01/05/2024 01/04/2025 1 1 Encounter Details Date Type Department Care Team (Late st Contact Info) Description 01/05/2024 Orders Only Department of Vascular Medicine in [place], [place] [address] [place] [phone] Jayjay Pak P.A.-C. [address] [place] [phone] Follow Up Examination Status Post Surgery (Primary Dx); Peripheral Arterial Disease (HCC) Social History Tobacco Use Types Packs/Day [...] How often do you attend methodist or anabaptist serv ices? 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 Gender Identity Male 08/31/2019 2:40 PM CDT Sexual Orientation Straight 08/31/2019 2: 40 PM CDT documented as of this encounter Plan of Treatment Scheduled Orders Name Type Priority Associated Diagnoses Order Schedule Lower Extremity Arterial (MIMI) - Exercise (Claudication) Vascular Ultrasound Routine Follow Up Examination Status Post Surgery Peripheral Arterial Disease (HCC) Expected: 03/05/2024 (Approximate), Expires: 04/06/2025 ECG 12 Lead ECG Routine Follow Up Examination Status Post Surgery Peripheral Arterial Disease (HCC) Expected: 03/05/2024 (Approximate), Expires: 04/06/2025 US Aorta Iliac Arteries Bilateral with Doppler Imaging RAD - Routine (most inpatients and all outpatients) Follow Up Examination Status Post Surgery Peripheral Arterial Disease (HCC) Expected: 03/05/2024, Expires: 01/04/2025 US Lower Extremity Artery Graft Bilateral Imaging RAD - Routine (most inpatients and all outpatients) Follow Up Examination Status Post Surgery Peripheral Arterial Disease (HCC) Expected: 03/05/2024, Expires: 01/04/2025 Scheduled Referrals Name Type Priority Associated Diagnoses Orde r Schedule Vascular Medicine office visit (clinic) Vascular Surgery Referral Outpatient Referral Routine Expected: 03/05/2024 (Approximate), Expires: 04/06/2025 documented as of this encounter Visit Diagnoses Diagnosis Follow Up Examination Status Post Surgery- Primary Peripheral Arterial Disease (HCC) documented in this encounter Additional Health Concerns Assessment Noted Time PHQ-9 Depression Total Score: 3 01/04/20 18 10:38 AM CDT documented as of this encounter Care Teams Bioinformatics Specialist Relationship Specialty Start Date End Date Elsewhere, Pcp PCP - General Family Medicine 01/29/20 documented as of this encounter
--- OUTSIDE RECORDS SUMMARY | 2024-01-10 09:56 | XMS_ITS | Encounter Summary ---
Author Organization [facility] Address [address] [place] [address] Care Team Providers Care Business Strategist Name Role Phone Elsewhere, Pcp Primary Care Provider Unavailabl e Encounter Details Date Type Department Care Team (Late st Contact Info) Description 08/19/2016 Historical Ophthalmology [facility] Chalo Holland Jr., M.D. [address] [place] [address] Social History Tobacco Use Types Packs/Day Years Used Date Smoking Tobacco: Every Day Sex and Gender Information Value Date Recorded Sex Assigned at Male 03/24/2021 8:[address] REGISTRY OFFICER Gender Identity Male 08/31/2019 2:40 PM [...] IOL OU CDM Reports - EYEGEN Id: [id number] Status: Fnl documented in this encounter Plan of Treatment Not on file documented as of this encounter Visit Diagnoses Not on filedocumented in this encounter Additional Health Concerns Infection Onset Date Last Indicated Resolved Time COVID19 Pending 05/08/2020 05/08/2020 05/08/2020 2 :[address] REGISTRY OFFICER Assessment Noted Time PHQ-9 Depression Total Score: 7 08/17/19 17 9:01 AM CDT documented as of this encounter Care Teams Business Strategist Relationship Specialty Start Date End Date Elsewhere, Pcp PCP - General Family Medicine 01/29/20 documented as of this encounter
== END 2024-01-10 09:53 | disposition home or self-care (01) ==
LOC: WOUND 09:52
PROVIDERS: PCP Family Medicine; Visit Provider Nurse Practitioner Family
DX: E11.621 Type 2 diabetes mellitus with foot ulcer (principal); L97.518 Non-pressure chronic ulcer of other part of right foot with other specified severity; N18.5 Chronic kidney disease, stage 5; E11.22 Type 2 diabetes mellitus with diabetic chronic kidney disease; Z96.41 Presence of insulin pump (external) (internal); Z99.2 Dependence on renal dialysis
CPT/HCPCS: 15275; Q4121

== ENCOUNTER 2024-01-17 09:54 | Outpatient (CLI) | payer MEDICARE, BC, SELFPAY ==
--- OUTSIDE RECORDS SUMMARY | 2024-01-17 09:58 | XMS_ITS | Encounter Summary ---
Author Organization [facility] Address [address] [place] [address] Care Team Providers Care Director Of Provider Relations Name Role Phone Elsewhere, Pcp Primary Care Provider Unavailabl e Reason for Visit * Reason Comments Med Refill Encounter Details Date Type Department Care Team (Late st Contact Info) Description 01/14/2024 Refill Division of Nephrology and Hypertension in [place], [place] [address] [place] [address] Onesimo Rodriguez M.D. Med Refill Social History Tobacco Use Types [...] often do you attend confucianist or hindu serv ices? 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 Gender Identity Male 08/31/2019 2:40 PM CDT Sexual Orientation Straight 08/31/2019 2: 40 PM CDT documented as of this encounter Plan of Treatment Upcoming Encounters Date Type Department Care Team (Latest Contact Info) Description 03/05/2024 7:30 AM CDT Appointment Department of Vascular Medicine in [place], [place] [address] [place] [address] Jayjay Pak, P.A.-Jennifer [address] [place] [phone] Discharge Disposition: Home or Self Care 03/05/2024 10:40 AM CDT Ancillary Procedure Department of Cardiovascular Medicine in [place], [place] [address] [place] [address] Jayjay Pak, XiAFei-CFei [address] [place] [phone] 03/05/2024 11:00 AM CDT Appointment Department of Radiology, [facility], in [place], [place] [address] [place] [address] Jayjay Pak P.A.-C. [address] [place] [phone] 03/05/2024 1:45 PM CDT Appointment Department of Radiology, [facility], in [place], [place] [address] [place] [address] Jayjay Pak P.A.-C. [address] [place] [phone] 03/05/2024 3:00 PM CDT Office Visit Department of Vascular Medicine in [place], [place] [address] [place] [address] Jayjay Pak P.A.-C. [address] [place] [phone] documented as of this encounter Visit Diagnoses Not on filedocumented in this encounter Additional Health Concerns Assessment Noted Time PHQ-9 Depression Total Score: 3 01/04/20 18 10:38 AM CDT documented as of this encounter Care Teams Director Of Provider Relations Relationship Specialty Start Date End Date Elsewhere, Pcp PCP - General Family Medicine 01/29/20 documented as of this encounter
--- OUTSIDE RECORDS SUMMARY | 2024-01-17 09:58 | XMS_ITS | Clinical Summary ---
Author Organization [facility] Address [place], [place] [address] Care Team Providers Care Payment Poster Name Role Phone Casa Lucia MD Unavailable Unavailable Rudy Riddle MD Unavailable [phone] Rudy Riddle MD Primary Care Provider + Allergies Active Allergy Reactions Criticality Noted Date Comments Gabapentin Other - Describe In Comment Field Medium 08/04/2020 Dizzy, memory issue Dizzy, memory issue Morphine Itching 02/04/2010 After 3 days of use Pregabalin Anaphylaxis,Itching High 02/16/2017 swetesfaye jane Ewgdcqh-Hva-Jyd Reductase Inhibitors Myalgia 02/13/2014 Medications Medication Sig [...] Comments Blood Pressure 162/87 07/21/2022 9:21 PM DOOR FRAME BUILDER Pulse 100 07/21/2022 9:21 PM DOOR FRAME BUILDER Temperature 37.1 ??C (98.8 ??F) 07/21/2022 8:51 PM CS T Respiratory Rate 18 07/21/2022 8:51 PM DOOR FRAME BUILDER Oxygen Saturation 96% 07/21/2022 9:21 PM DOOR FRAME BUILDER Inhaled Oxygen Concentration - - Weight 83.9 kg (185 lb) 07/21/2022 5:35 PM DOOR FRAME BUILDER Height 175.3 cm (5' 9) 07/21/2022 5:35 PM DOOR FRAME BUILDER Body Mass Index 27.32 07/21/2022 5:35 PM DOOR FRAME BUILDER Plan of Treatment Health Maintenance Due Date [...] history exists COVID-19 vaccine series (2022- season) 2024 Influenza for age 65+ 01/15/2024 03/17/2022 , 03/24/2021, 02/20/2020, Additional history exists Tetanus booster 08/16/2026 08/16/2016, 01/2007, 03/24/2007, Additional history exists Colonoscopy through age 75 05/12/203205/12, 02/04/2006 (Completed outside of [facility]) Tdap Completed 08/16/2016 Pneumococcal series for age 65+ Completed 04/24/2018, 04/11/2017, 02/14/2012, Additional history exists Goals Goal Patient Goal Type Associated Problems Recent Progress Patient-Stated? Author BLOOD PRESSURE - MAINTAINS BP less than 140/90 Blood Pressure No Rudy Riddle MD Procedures Procedure Name Priority Date/Time Associated Diagnosis Comments COLONOSCOPY 05/12/2022 8:51 AM DOOR FRAME BUILDER LIPID PANEL W REFLEX MEASURED LDL Routine 02/16/2016 8:59 AM CDT Hyperlipidemia, unspecified hyperlipidemia type from Last 3 Months or Most Recently Relevant to Health Maintenance Results * COLONOSCOPY (05/12/2022 8:51 AM DOOR FRAME BUILDER) 05/12/2022 8:51 AM DOOR FRAME BUILDER Narrative Transcriptions Lukas West MD - 05/12/2022 9:03 AM [facility] Patient Name: Onesimo Walton Procedure Date: 05/12/2022 Gender: Male Date of : 1950 Admit Type: Inpatient Procedure: Colonoscopy Proceduralist: Lukas West MD [facility] Indications/Pre-Op Diagnosis: Anemia. Bacteremia Medications: Monitored Anesthesia Care Procedure Description: The patient had risks, benefits and alternatives explained to andgave informed consent. The patient had a stable cardiopulmonary status and judged an adequate candidate for conscious sedation. The [facility]-[id number] endoscope was passed through the anus and [...] - 199 mg/dL 02/16/2016 11:02 AM CDT [facility] TRIGLYCERIDES 232(H) <150 mg/dL 02/16/2016 11:02 AM CDT [facility] HDL CHOLESTEROL 31(L) >40 mg/dL 02/16/2016 11:02 AM CDT [facility] NON-HDL CHOLESTEROL 147(H) <145 mg/dl 02/16/2016 11:02 AM CDT [facility] CHOL/HDL RATIO 5.74(H) <4.50 02/16/2016 11:02 AM CDT [facility] LDL CHOLESTEROL 101 <=130 mg/dL 02/16/2016 11:02 AM CDT [facility] PATIENT STATUS FASTING 02/16/2016 11:[address] [facility] Blood BLOOD SPECIMEN / Unknown Venipuncture / Unknown 02/16/2016 8:59 AM CDT 02/16/2016 8:59 AM CDT Rudy Riddle MD CHEMISTRY [facility] [address] [place] [address] [facility] [address] [place] [address], [place] [phone] from Last 3 Months or Most Recently [...] Preferences, Provider to review later Care Teams Payment Poster Relationship Specialty Start Date End Date Rudy Riddle MD [address] [place] [address] PCP - General Family Practice 05/25/22 Casa Lucia MD [address] [place] [address] Ophthalmology Ophthalmology Surgery 12/22/11 Rudy Riddle MD [address] [place] [address] Family Practice 05/07/22
--- OUTSIDE RECORDS SUMMARY | 2024-01-17 09:58 | XMS_ITS | Continuity of Care Document ---
Author Organization [facility] Address [address] [place] [address] Phone Care Team Providers Care Agency Development Manager Name Role Phone Dot Warner Unavailable Unavailable Medications Medication Instructions Dosage Effective Dates (start - stop) Status Comments AMPICILLIN-SULBACTAM (unknown strength) Not Available - Active MINOCYCLINE HCL (unknown strength) Not Available - Active Procedures Procedure Date Office/Outpatient Visit,Est, Mod 2022 OFFICE/OUTPATIENT VISIT EST Phone Office/Outpatient Visit,Est, Mod 2022 Followup Hospital Care, [facility] 2021 Advance Directives Directive Yes / No Effective Date File Name No Information Encounters Encounter Description Practice Location Reason(s) For Visit Diagnoses Date Provider Providers Copied on Encounter [facility], [address], [place], [place], [id number] , [place] tel: [phone] [facility] No Information 3 Kindra Chris. [facility] [place], [address] [place] [address] [address], [place], [address], [place]. tel: [phone] Office/Outpa tient Visit,Est, Mod [facility], [address], [place], [place], [id number] , [place] tel: [phone] [facility] [place] Spinal stenosis, lumbar region with neurogenic claudication 3 Camille Bob. [facility] [place], [address] [place] [address], [address], [place], [address], [place]. tel: [phone] Referring Provider: Lisbeth Thomas, [facility] [address], [address], [place], [address]. [phone] OFFICE/OUTPA TIENT VISIT EST Phone [facility], [address], [place], [place], [id number] , [place] [phone] [facility] [place] No Information 3 Obrien Lisbeth. [facility], [address], [address], [place], [address], [place]. [phone] Referring Provider: Lisbeth Thomas, [facility] [address], [address], [place], [address]. [phone] Office/Outpa tient Visit,Est, Mod [facility], [address], [place], [place], [id number] , [place] [phone] [facility] Low back pain, unspecifiedOther specified soft tissue disorders 3 Obrien Lisbeth. [facility] [place], [address], [address], [place], [address], [place]. [phone] Referring Provider: Lisbeth Thomas, [facility] [place] [address], [address], [place], [address]. [phone] Followup Hospital Care, Moderate [facility], [address], [place], [place], [id number] , [place] [phone] [facility] No Information 2 Dhaval Velez. [facility], [address], [address], [place], [address], [place]. [phone] Referring Provider: Rudy Riddle, [facility] [address], [address]. tel:[phone] Family History Family Member Type Diagnosis Age At Onset No Information Payers Payer name Insurance type Covered democrat ID Authorjaimealivia durant([place]) [place] [id number] Medicare [facility] [id number] 1 Social History Type Description Quantity Date [...]
--- OUTSIDE RECORDS SUMMARY | 2024-01-17 09:58 | XMS_ITS | Referral Summary ---
Author Organization [facility] Address [address] [place] [address] Care Team Providers Care Hot Plate Plywood Press Feeder Name Role Phone Elsewhere, Pcp Primary Care Provider Unavailabl e Source Comments Patient records contain information from all sites at [facility]. For routine questions regarding patient records, call [phone] during business hours, M-F 8:00 AM - 5:00 PM Central Time. Record requests for emergency care only can be directed to [phone] at any time.[facility] Encounters Date Type Department Care Team Description 01/14/2024 Refill Division of Nephrology and Hypertension in [place], [place] [address] [place] [address] Onesimo Rodriguez M.D. Med Refill 01/05/2024 Orders Only Department of Vascular Medicine in [place], [place] [address] [place] [address] Jayjay Pak P.A.-C. Follow Up Examination Status Post Surgery (Primary Dx); Peripheral Arterial Disease (HCC) from Last 3 Months Allergies Active Allergy Reactions Criticality Noted Date Comments Gabapentin Other (see comments) Medium 08/04/2020 Dizzy, memory issue Morphine Itching,Rash Medium 02/14/2012 itchy Pregabalin Anaphylaxis High 02/16/2017 swell Lezvgax-Hod-Jxl Reductase Inhibitors Myalgia Low 02/13/2014 Medications Medication [...] 04/21/2018 Restless Leg Syndrome 01/12/2018 Atherosclerosis Of [place] Ar teries Of Extremities With Intermittent Claudication Right Leg 08/08/2017 Hyperlipidemia 07/22/2017 Ulcer Leg Left 04/19/2017 Ulcer Toe Left 04/19/2017 Atherosclerosis Of [place] Ar teries Of Left Leg With Ulceration Of Unspecified Site 04/19/2017 Peripheral Arterial Disease 02/16/2017 Hypertension NOS 02/16/2017 Hypertensive Chronic Kidney Disease With Stage 1 Through Stage 4 Chronic Kidney Disease, Or Unspecified Chronic Kidney Disease 09/23/2016 Overview (10/05/2016): Hypertension (HTN) And CKD Stage 1-4 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 Never 03/24/2021 [...] Answer Date Recorded PHQ-2 Score 0 10/20/2018 [facility] [place] of Occupat ional Health - Occupational [...] living situation today? I have a [facility] place to live 10/26/2022 Education Answer Date Recorded What is the highest level of school you have completed or the highest degree you have received? 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/2021 8:13 PM CYBER LEGAL ADVISOR Gender Identity Male 08/31/2019 2:40 PM [...] CDT Appointment Department of Vascular Medicine in [place], [place] [address] [place] [address] Jayjay Pak P.A.-C. [address] [place] [phone] Discharge Disposition: Home or Self Care 03/05/2024 10:40 AM CDT Ancillary Procedure Department of Cardiovascular Medicine in [place], [place] [address] [place] [phone] Jayjay Pak P.A.-C. [address] [place] [phone] 03/05/2024 11:00 AM CDT Appointment Department of Radiology, [facility], in [place], [place] [address] [place] [address] Jayjay Pka P.A.-C. [address] [place] [phone] 03/05/2024 1:45 PM CDT Appointment Department of Radiology, [facility], in [place], [place] [address] [place] [address] Jayjay Pak P.A.-C. [address] [place] [phone] 03/05/2024 3:00 PM CDT Office Visit Department of Vascular Medicine in [place], [place] [address] [place] [address] Jayjay Pak P.A.-C. [address] [place] [phone] Medical Devices Implanted Type Area Marina Dry Dock Manager Device Identifier Shelf Expiration Date Model / Serial / Lot Patch Vasc Bovine.08cm X 8cm - Flores [id number] Implanted:Qty: 1 on 04/04/2017 Mesh or Patch Other/Legacy - See Implant Description Synovis Description:Device Manufactu rer - Synovi. Body Location - Other. Vascular. Device Status Text - [id number]. Ocular Lens-10/29/2007 Implanted:10/28 by Nato Dougherty, JULIÁN, C.N.P., R.N. (Quantity not on file) Ocular Lens Bilateral: Eye Description:Cataract extract ion and insertion of intraocular lens 06/22/2016 09:27 - NATO DOUGHERTY APRN TURPENTINE DISTILLER bilateral Conversions - Default Historical Implant Device [...] 6mm X 29mm X 135cm - Flores [id number] Implanted:Qty: 1 on 03/04/2017 Vascular Graft [place] Description:Device Manufactu rer - [employer]. Device Status Text - [id number]. Stent Vbx [id number] - Flores [id number] Implanted:Qty: 1 on 03/04/2017 Vascular Graft Other/Legacy - See Implant Description [place] Description:Device Manufactu rer - [employer] [place] [employer] Body Location - Other. n/a. Device Status Text - [id number]. Stent Vbx [id number] - Flores [id number] Implanted:Qty: 1 on 03/04/2017 Vascular Graft Other/Legacy - See Implant Description [place] Description:Device Manufactu rer - [employer] [place] [employer] Body Location - Other. n/a. Device Status Text - [id number]. Stent Zilver Ptx 6mm X 40mm - Flores [id number] Implanted:Qty: 1 on 04/04/2017 Vascular Stent Other/Legacy - See Implant Description [employer]. Description:Device Manufactu rer - Cook [employer]. Body Location - Other. Left. Device Status Text - [id number]. Stent Zilver Ptx 6mm X 60mm - Flores [id number] Implanted:Qty: 1 on 04/04/2017 Vascular Stent Other/Legacy - See Implant Description [employer]. Description:Device Manufactu rer - [employer]. Body Location - Other. Left. Device Status Text - [id number]. Stent Zilver Ptx 6mm X 80mm - Flores [id number] Implanted:Qty: 1 on 08/31/2017 Vascular Stent Right: Other/Legacy - See Implant Description [employer]. / [id number] / Description:Device Manufactu rer - [employer]. Body Location - Right. Device Status Text - [id number]. Stent Zilver Ptx 6mm X 40mm - Flores [id number] Implanted:Qty: 1 on 08/31/2017 Vascular Stent Right: Other/Legacy - See Implant Description [employer]. / [id number] / Description:Device Manufactu rer - [employer]. Body Location - Right. Device Status Text - [id number]. Stnt Innova Otw [id number] - [id number] Implanted:Qty: 1 on 04/18/2018 by Kemar Velásquez M.B.B.S. at [facility] Vascular Stent [place] [employer] 05/23/2020 [id number] / / [id number] Stnt Innova Otw [id number] - [id number] Implanted:Qty: 1 on 05/11/2019 by Kemar Velásquez M.B.B.S. at [facility] Vascular Stent Left: Leg [employer] [place] [employer] 09/05/2020 [id number] / / [id number] Procedures Procedure Name Priority Date/Time Associated Diagnosis [...] Renal Disease Acidosis Metabolic Hyperchloremic Atherosclerosis Of [place] Arteries Of Extremities With Intermittent Claudication Right [...] CDT 02/17/2023 11:01 AM CDT Narrative - [facility] - 02/17/2023 4:02 PM CDT Specimen Information: Specimen ID: [id number] Specimen Type: Blood Specimen Collection Start Date: 02/17/2023 ??9:35 AM Specimen Received Date: 02/17/2023 11:01 AM Specimen ID: [id number] Specimen Type: Blood Specimen Collection Start Date: 02/17/2023 ??9:35 AM Specimen Received Date: 02/17/2023 ??3:35 PM Estiven He Jr.O. LAB BLOOD AD D-ON - [facility] [address] [place] [address], [facility] OW[facility] in [address] [place] [address] AUST [facility] - [facility] [address] [place] [address] * HCV Ab Scrn w/Reflex to HCV PCR, Serum (02/17/2023 9:35 AM CDT) HCV Ab Screen, S Negative Negative 02/18/20 3:35 PM CDT [facility] Comment: Biotin has been identified by the brick catcher as a potential interfering substance. Higher concentrations [...] 3:35 PM CDT Specimen Information: Specimen ID: [id number] Specimen Type: Blood Specimen Collection Start Date: 02/17/2023 ??9:35 AM Specimen Received Date: 02/17/2023 ??2:20 PM Specimen ID: [id number] Specimen Type: Blood Specimen Collection Start Date: 02/17/2023 ??9:35 AM Specimen Received Date: 02/17/2023 ??2:16 PM Estiven He Jr.O. LAB MICROBIO LOGY [place] [address], [facility] [place] [address] * (ABNORMAL) Albumin, Random, Urine (02/17/2023 9:26 AM CDT) Microalbumin 895.0 mg/L 02/17/2023 1:53 PM CDT OW[facility] Creatinine 42 mg/dL 02/17/2023 12:50 PM CDT [facility] Albumin/Creatinin e Ratio 2131(H) <17 mg/g 02/17/2023 1:53 PM CDT [facility] Urine (Urine, Voided) 02/17/2023 9:26 AM CDT 02/17/2023 11:00 AM CDT Haseeb Menon Jr., D.O. LAB URINE OR DERABLES Performing Organization Address City/[facility] Co de Phone Number - [facility] [address] [place] [address], [facility] OW[facility] in [address] [place] [address] * (ABNORMAL) Hemoglobin A1c (11/25/2022 2:09 PM CDT) Hemoglobin A1c, B 6.2(H) 4.2 - 5.6 % 11/25/2022 4:40 PM CDT [facility] Comment: Hemoglobin A1c values of 5.7-6.4 percent indicate an increased risk for developing diabetes mellitus. In diabetic patients, HbA1c goals should be discussed with healthcare provider. Blood (Blood, Venous) 11/25/2022 2:09 PM CDT 11/25/2022 3:35 PM CDT Haseeb Menon Jr., D.O. LAB BLOOD AD D-ON Performing Organization Address [facility] Co de Phone Number - [facility] [address] [place] [address], [facility] in [place] [address] [place] [address] * (ABNORMAL) Lipid Panel (02/10/2021 8:27 AM [...] AM CDT Kemar Reyes LAB BLOOD ADD-ON [facility] [address] [place] [address], [facility] [address] [place] [address] * CT Abdomen Pelvis Angiogram with IV [...] Advance Directives For more information, please contact: [phone] * Full Code (Latest Code Status on [...] Answer Comments Full Code: Discussed Care Teams Hot Plate Plywood Press Feeder Relationship Specialty Start Date End Date Elsewhere, Pcp PCP - General Family Medicine 01/29/20
--- OUTSIDE RECORDS SUMMARY | 2024-01-17 09:58 | XMS_ITS | Clinical Summary ---
Author Organization [facility] Address [address] [place] [address] Care Team Providers Care Senior Mechanical Design Engineer Name Role Phone Elsewhere, Pcp Primary Care Provider Unavailabl e Source Comments Patient records contain information from all sites at [facility]. For routine questions regarding patient records, call [phone] during business hours, M-F 8:00 AM - 5:00 PM Central Time. Record requests for emergency care only can be directed to [phone] at any time.[facility] Allergies Active Allergy Reactions Criticality Noted Date Comments Gabapentin Other (see comments) Medium 08/04/2020 Dizzy, memory issue Morphine Itching,Rash Medium 02/14/2012 itchy Pregabalin Anaphylaxis High 02/16/2017 swell Ywdebmv-Adx-Jup Reductase Inhibitors Myalgia Low 02/13/2014 Medications Medication [...] TAKE ONE CAPSULE BY MOUTH EVERY DAY LOADING CHECKER 01/14/2022 Active allopurinoL (ZYLOPRIM) 100 mg tablet [...] 04/21/2018 Restless Leg Syndrome 01/12/2018 Atherosclerosis Of [place] Ar teries Of Extremities With Intermittent Claudication Right Leg 08/08/2017 Hyperlipidemia 07/22/2017 Ulcer Leg Left 04/19/2017 Ulcer Toe Left 04/19/2017 Atherosclerosis Of [place] Ar teries Of Left Leg With Ulceration Of Unspecified Site 04/19/2017 Peripheral Arterial Disease 02/16/2017 Hypertension NOS 02/16/2017 Hypertensive Chronic Kidney Disease With Stage 1 Through Stage 4 Chronic Kidney Disease, Or Unspecified Chronic Kidney Disease 09/23/2016 Overview (10/05/2016): Hypertension (HTN) And CKD Stage 1-4 Band Edger Use Of Insulin Active 09/23/2016 Overview (10/05/2016): Snf Use Of Insulin Active Depression Major Recurrent Moderate 06/22/2016 Overview (10/05/2016): Depression Major Recurrent Moderate Diabetes Mellitus Type 2 Wit h Other Circulatory Complication 06/22/2016 Overview (10/05/2016): DM2 Peripheral Neuropathy Uncontrolled Encounters Date Type Department Care Team Description 01/14/2024 Refill Division of Nephrology and Hypertension in [place], [place] [address] [place] [address] Onesimo Rodriguez M.D. Med Refill 01/05/2024 Orders Only Department of Vascular Medicine in [place], [place] [address] [place] [address] Jayjay Pak P.A.-C. Follow Up Examination Status [...] How often do you attend sabianist or gnosticist serv ices? Never 03/24/2021 Do [...] Answer Date Recorded PHQ-2 Score 0 10/20/2018 [facility] [place] of Occupat ional Health - Occupational Stress [...] Sex Assigned at Male 03/24/2021 8:13 PM MULTIMEDIA ARTIST Gender Identity Male 08/31/2019 2:40 PM CDT [...] CDT Appointment Department of Vascular Medicine in [place], [place] [address] [place] [phone] Jayjay Pak P.A.-Jennifer [address] [place] [phone] Discharge Disposition: Home or Self Care 03/05/2024 10:40 AM CDT Ancillary Procedure Department of Cardiovascular Medicine in [place], [place] [address] [place] [address] Jayjay Pak P.A.-C. [address] [place] [phone] 03/05/2024 11:00 AM CDT Appointment Department of Radiology, [facility], in [place], [place] [address] [place] [phone] Jayjay Pak P.A.-C. [address] [place] [phone] 03/05/2024 1:45 PM CDT Appointment Department of Radiology, [facility], in [place], [place] [address] [place] [phone] Jayjay Pak P.A.-C. [address] [place] [address] 03/05/2024 3:00 PM CDT Office Visit Department of Vascular Medicine in [place], [place] [address] [place] [address] Jayjay Pak P.A.-C. [address] [place] [address] Health Maintenance Due Date Last Done Comments [...] Additional history exists Sodium Level 02/18/2024 02/17/2023, 1008/2022, 01/11/2023, Additional history exists Urine Albumin 02/18/2024 [...] 02/14/2023, 11/17/2022 Medical Devices Implanted Type Area Livestock Breeder Device Identifier Shelf Expiration Date Model / Serial / Lot Patch Vasc Bovine.08cm X 8cm - Flores [id number] Implanted:Qty: 1 on 04/04/2017 Mesh or Patch Other/Legacy - See Implant Description Synovis Description:Device Manufactu rer - Synovis. Body Location - Other. Vascular. Device Status Text - [id number]. Ocular Lens-10/29/2007 Implanted:10/28 by Nato Dougherty, JULIÁN, C.N.P., R.N. (Quantity not on file) Ocular Lens Bilateral: Eye Description:Cataract extract ion and insertion of intraocular lens 06/22/2016 09:27 - NATO DOUGHERTY SPARK PLUG TESTER LEGAL EXAMINER bilateral Conversions - Default Historical Implant [...] 6mm X 29mm X 135cm - Flores [id number] Implanted:Qty: 1 on 03/04/2017 Vascular Graft [place] Description:Device Manufactu rer - [employer]. Device Status Text - [id number]. Stent Vbx [id number] - Flores [id number] Implanted:Qty: 1 on 03/04/2017 Vascular Graft Other/Legacy - See Implant Description [place] Description:Device Manufactu rer - [employer] [place] [employer] Body Location - Other. n/a. Device Status Text - [id number]. Stent Vbx [id number] - Flores [id number] Implanted:Qty: 1 on 03/04/2017 Vascular Graft Other/Legacy - See Implant Description [place] Description:Device Manufactu rer - [employer] [place] [employer] Body Location - Other. n/a. Device Status Text - [id number]. Stent Zilver Ptx 6mm X 40mm - Flores [id number] Implanted:Qty: 1 on 04/04/2017 Vascular Stent Other/Legacy - See Implant Description Cook [employer] Inc. Description:Device Manufactu rer - [employer]. Body Location - Other. Left. Device Status Text - [id number]. Stent Zilver Ptx 6mm X 60mm - Flores [id number] Implanted:Qty: 1 on 04/04/2017 Vascular Stent Other/Legacy - See Implant Description [employer]. Description:Device Manufactu rer - [employer]. Body Location - Other. Left. Device Status Text - [id number]. Stent Zilver Ptx 6mm X 80mm - Flores [id number] Implanted:Qty: 1 on 08/31/2017 Vascular Stent Right: Other/Legacy - See Implant Description Cook [employer] Inc. / [id number] / Description:Device Manufactu rer - [employer]. Body Location - Right. Device Status Text - [id number]. Stent Zilver Ptx 6mm X 40mm - Flores [id number] Implanted:Qty: 1 on 08/31/2017 Vascular Stent Right: Other/Legacy - See Implant Description [employer] Inc. / [id number] / Description:Device Manufactu rer - [employer]. Body Location - Right. Device Status Text - [id number]. Stnt Innova Otw [id number] - [id number] Implanted:Qty: 1 on 04/18/2018 by Kemar Velásquez M.B.B.S. at [facility] Vascular Stent [employer] 05/23/2020 [id number] / / [id number] Stnt Innova Otw [id number] - [id number] Implanted:Qty: 1 on 05/11/2019 by Kemar Velásquez M.B.B.S. at [facility] Vascular Stent Left: Leg [employer] 09/05/2020 [id number] / / [id number] Procedures Procedure Name Priority Date/Time Associated Diagnosis [...] Renal Disease Acidosis Metabolic Hyperchloremic Atherosclerosis Of Venet[place] Ira Arteries Of Extremities With Intermittent Claudication [...] AM CDT 02/17/2023 11:01 AM CDT Narrative [facility] - 02/17/2023 4:02 PM CDT Specimen Information: Specimen ID: [id number] Specimen Type: Blood Specimen Collection Start Date: 02/17/2023 ??9:35 AM Specimen Received Date: 02/17/2023 11:01 AM Specimen ID: [id number] Specimen Type: Blood Specimen Collection Start Date: 02/17/2023 ??9:35 AM Specimen Received Date: 02/17/2023 ??3:35 PM Haseeb Menon Jr., D.O. LAB BLOOD AD D-ON [facility] [address] [facility] [place] [facility] [place] [address] [place] [id number] AUST [facility] [address] [place] [address] * HCV Ab Scrn w/Reflex to HCV PCR, Serum (02/17/2023 9:35 AM CDT) HCV Ab Screen, S Negative Negative 02/18/20 3:35 PM CDT [facility] Comment: Biotin has been identified by the pouring crane operator as a potential interfering substance. Higher concentrations of biotin may be found in multivitamins, hair/nail supplements, and workout supplements. If the result does not match clinical observations, repeat testing after patient refrains from the use of supplements for at least 12 hours. Blood (Blood, Venous) 02/17/2023 9:35 AM CDT 02/17/2023 2:20 PM CDT Narrative [facility] - 02/17/2023 3:35 PM CDT Specimen Information: Specimen ID: [id number] Specimen Type: Blood Specimen Collection Start Date: 02/17/2023 ??9:35 AM Specimen Received Date: 02/17/2023 ??2:20 PM Specimen ID: [id number] Specimen Type: Blood Specimen Collection Start Date: 02/17/2023 ??9:35 AM Specimen Received Date: 02/17/2023 ??2:16 PM Haseeb Menon Jr., D.O. LAB MICROBIO LOGY - BLOOD ORDERABLES Performing Organization Address [facility] Co de Phone Number [facility] [address] [place] [address], [facility] MKTO [facility] in [place] [address] [place] [address] * (ABNORMAL) Albumin, Random, Urine (02/17/2023 9:26 AM CDT) Microalbumin 895.0 mg/L 02/17/2023 1:53 PM CDT [facility] Creatinine 42 mg/dL 02/17/2023 12:50 PM CDT [facility] Albumin/Creatinin e Ratio 2131(H) <17 mg/g 02/17/2023 1:53 PM CDT [facility] Urine (Urine, Voided) 02/17/2023 9:26 AM CDT 02/17/2023 11:00 AM CDT Haseeb Menon Jr., D.O. LAB URINE OR DERABLES Performing Organization Address City/[facility] Co de Phone Number [facility] [address] [place] [address], [facility] OWAT [facility] in [place] [address] [place] [address] * (ABNORMAL) Hemoglobin A1c (11/25/2022 2:09 PM [...] Jr., D.O. LAB BLOOD AD D-ON [facility] [address] [place] [address], [place] [facility] in [place] [address] [place] [address] * (ABNORMAL) Lipid Panel (02/10/2021 8:27 AM CDT) [facility] Cholesterol, Total 102 mg/dL 2020 10:06 AM [...] Kemar Reyes LAB BLOOD ADD-ON [facility] [address] [place] [address], [facility] DTL [facility] [address] [place] [address] * CT Abdomen Pelvis Angiogram with IV [...] Advance Directives For more information, please contact: [phone] * Full Code (Latest Code Status on [...] Answer Comments Full Code: Discussed Care Teams Senior Mechanical Design Engineer Relationship Specialty Start Date End Date Elsewhere, Pcp PCP - General Family Medicine 01/29/20
--- OUTSIDE RECORDS SUMMARY | 2024-01-17 09:58 | XMS_ITS ---
Author Organization [facility] Address [address] [place] [address] Care Team Providers Care Theater Teacher Name Role Phone Unavailable Unavailable Unavailable Surgery Details Not on file Complications Check Surgery Details section. Procedure Estimated Blood Loss Check Surgery Details section. Procedure Findings Check Surgery Details section. Procedure Specimens Taken Check Surgery Details section.
--- OUTSIDE RECORDS SUMMARY | 2024-01-17 09:59 | XMS_ITS | Encounter Summary ---
Author Organization [facility] Address [address] [place] [address] Care Team Providers Care Doughnut Icer Name Role Phone Elsewhere, Pcp Primary Care Provider Unavailabl e Encounter Details Date Type Department Care Team (Late st Contact Info) Description 08/19/2016 Historical Ophthalmology [facility] Chalo Holland Jr., M.D. [address] [place] [address] Social History Tobacco Use Types Packs/Day Years Used Date Smoking Tobacco: Every Day Sex and Gender Information Value Date Recorded Sex Assigned at Male 03/24/2021 8:13 PM FOREST LAW AND POLICY PROFESSOR Gender Identity Male 08/31/2019 2:40 PM [...] IOL OU CDM Reports - EYEGEN Id: [id number] Status: Fnl documented in this encounter Plan of Treatment Upcoming Encounters Date Type Department Care Team (Latest Contact Info) Description 03/05/2024 7:30 AM CDT Appointment Department of Vascular Medicine in [place], [place] [address] [place] [address] Jayjay Pak P.A.-C. [address] [place] [phone] Discharge Disposition: Home or Self Care 03/05/2024 10:40 AM CDT Ancillary Procedure Department of Cardiovascular Medicine in [place], [place] [address] [place] [phone] Jayjay Pak P.A.-C. [address] [place] [phone] 03/05/2024 11:00 AM CDT Appointment Department of Radiology, [facility], in [place], [place] [address] [place] [phone] Jayjay Pak P.A.-C. [address] [place] [phone] 03/05/2024 1:45 PM CDT Appointment Department of Radiology, [facility], in [place], [place] [address] [place] [phone] Jayjay Pak P.A.-C. [address] [place] [phone] 03/05/2024 3:00 PM CDT Office Visit Department of Vascular Medicine in [place], [place] [address] [place] [phone] Jayjay Pak P.A.-C. [address] [place] [phone] documented as of this encounter Visit Diagnoses Not on filedocumented in this encounter Additional Health Concerns Infection Onset Date Last Indicated Resolved Time COVID19 Pending 05/08/2020 05/08/2020 05/08/2020 2 :44 PM FOREST LAW AND POLICY PROFESSOR Assessment Noted Time PHQ-9 Depression Total Score: 7 08/17/19 17 9:01 AM CDT documented as of this encounter Care Teams Doughnut Icer Relationship Specialty Start Date End Date Elsewhere, Pcp PCP - General Family Medicine 01/29/20 documented as of this encounter
--- OUTSIDE RECORDS SUMMARY | 2024-01-17 09:59 | XMS_ITS | Encounter Summary ---
Author Organization [facility] Address [address] [place] [address] Care Team Providers Care High Court Justice Name Role Phone Elsewhere, Pcp Primary Care Provider Unavailabl e Reason for Visit * Reason Onset Date Comments Hypertension 09/09/2023 Encounter Details Date Type Department Care Team (Latest Contact Info) Description 09/09/2023 Clinical Communication Division of Nephrology and Hypertension in [place], [place] [address] [place] [address] Haseeb Menon Jr., D.O. [address] [place] [address] Hypertension Social History Tobacco Use Types Packs/Day [...] How often do you attend evangelical or jainism serv ices? Never 03/24/2021 Do [...] Answer Date Recorded PHQ-2 Score 0 10/20/2018 [facility] - [...] Sex Assigned at Male 03/24/2021 8:13 PM PC SUPPORT SPECIALIST Gender Identity Male 08/31/2019 2:40 PM CDT Sexual Orientation Straight 08/31/2019 2: 40 PM CDT documented as of this encounter Miscellaneous Notes * Telephone Encounter - Danica Fowler - 09/09/2023 3:49 PM CDT Caller is: patient Preferred Communication Method: [phone] (mobile) Reason for call: Blood Pressure: BP numbers- 198/91, 214/99, 189/101 Is there any concern? YES -- Patient is noticing HIGH blood pressure readings today. Should adjustments be made? documented in this encounter Plan of Treatment Upcoming Encounters Date Type Department Care Team (Latest Contact Info) Description 03/05/2024 7:30 AM CDT Appointment Department of Vascular Medicine in [place], [place] [address] [place] [address] Jayjay Pak P.A.-C. [address] [place] [phone] Discharge Disposition: Home or Self Care 03/05/2024 10:40 AM CDT Ancillary Procedure Department of Cardiovascular Medicine in [place], [place] [address] [place] [phone] Jayjay Pak P.A.-C. [address] [place] [phone] 03/05/2024 11:00 AM CDT Appointment Department of Radiology, [facility], in [place], [place] [address] [place] [phone] Jayjay Pak P.A.-C. [address] [place] [phone] 03/05/2024 1:45 PM CDT Appointment Department of Radiology, [facility], in [place], [place] [address] [place] [phone] Jayjay Pak P.A.-C. [address] [place] [phone] 03/05/2024 3:00 PM CDT Office Visit Department of Vascular Medicine in [place], [place] [address] [place] [phone] Jayjay Pak P.A.-C. [address] [place] [phone] documented as of this encounter Visit Diagnoses Not on filedocumented in this encounter Additional Health Concerns Assessment Noted Time PHQ-9 Depression Total Score: 3 01/04/20 18 10:38 AM CDT documented as of this encounter Care Teams High Court Justice Relationship Specialty Start Date End Date Elsewhere, Pcp PCP - General Family Medicine 01/29/20 documented as of this encounter
--- OUTSIDE RECORDS SUMMARY | 2024-01-17 09:59 | XMS_ITS | Encounter Summary ---
Author Organization [facility] Address [address] [place] [address] Care Team Providers Care Package Reinspector Name Role Phone Elsewhere, Pcp Primary Care Provider Unavailabl e Reason for Referral * Outpatient (Routine) - Authorized Specialty Diagnoses / Procedures Referred By Robi t Referred To Contact Diagnoses Follow Up Examination Status Post Surgery Peripheral Arterial Disease (HCC) Procedures US Lower Extremity Artery Graft Bilateral Jayjay Pak P.A.-C. [address] [place] [address] [facility] Referral ID Status Reason Start Date Expiration Date V isits Requested Visits Authorized [id number] Authorized 01/05/2024 01/04/2025 1 1 * Outpatient (Routine) - Authorized Specialty Diagnoses / Procedures Referred By Robi t Referred To Contact Diagnoses Follow Up Examination Status Post Surgery Peripheral Arterial Disease (HCC) Procedures US Aorta Iliac Arteries Bilateral with Doppler Jayjay Pak P.A.-C. [address] [place] [address] [facility] Referral ID Status Reason Start Date Expiration Date V isits Requested Visits Authorized [id number] Authorized 01/05/2024 01/04/2025 1 1 * Outpatient (Routine) - Authorized Specialty Diagnoses / Procedures Referred By Contac t Referred To Contact Diagnoses Follow Up Examination Status Post Surgery Peripheral Arterial Disease (HCC) Procedures ECG 12 Lead Jayjay Pak P.A.-C. [address] [place] [phone] [facility] Referral ID Status Reason Start Date Expiration Date V isits Requested Visits Authorized [id number] Authorized 01/05/2024 01/04/2025 1 1 * Outpatient (Routine) - Authorized Specialty Diagnoses / Procedures Referred By Robi hong Referred To Contact Vascular Medicine Jayjay Pak P.A.-C. [address] [place] [phone] [facility] Referral ID Status Reason Start Date Expiration Date V isits Requested Visits Authorized [id number] Authorized 01/05/2024 07/06/2025 1 1 * Outpatient (Routine) - Authorized Specialty Diagnoses / Procedures Referred By Robi hong Referred To Contact Diagnoses Follow Up Examination Status Post Surgery Peripheral Arterial Disease (HCC) Procedures Lower Extremity Arterial (MIMI) - Exercise (Claudication) Jayjay Pak P.A.-C. [address] [place] [phone] [facility] Referral ID Status Reason Start Date Expiration Date V isits Requested Visits Authorized [id number] Authorized 01/05/2024 01/04/2025 1 1 Encounter Details Date Type Department Care Team (Late st Contact Info) Description 01/05/2024 Orders Only Department of Vascular Medicine in [place], [place] [address] [place] [phone] Jayjay Pka P.A.-C. [address] [place] [phone] Follow Up Examination Status Post Surgery (Primary [...] How often do you attend pentecostalism or yazdanism serv ices? 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 [address] [place] [phone] Discharge Disposition: Home or Self Care 03/05/2024 10:40 AM CDT Ancillary Procedure Department of Cardiovascular Medicine in [place], [place] [address] [place] [phone] Jayjay Pak P.A.-C. [address] [place] [phone] 03/05/2024 11:00 AM CDT Appointment Department of Radiology, [facility], in [place], [place] [address] [place] [address] Jayjay Pak P.A.-C. [address] [place] [phone] 03/05/2024 1:45 PM CDT Appointment Department of Radiology, [facility], in [place], [place] [address] [place] [address] Jayjay Pak P.A.-C. [address] [place] [phone] 03/05/2024 3:00 PM CDT Office Visit Department of Vascular Medicine in [place], [place] [address] [place] [phone] Jayjay Pak P.A.-C. [address] [place] [phone] Scheduled Orders Name Type Priority Associated Diagnoses [...] documented as of this encounter Care Teams Package Reinspector Relationship Specialty Start Date End Date Elsewhere, Pcp PCP - General Family Medicine 01/29/20 documented as of this encounter
== END 2024-01-17 09:55 | disposition home or self-care (01) ==
LOC: WOUND 09:54
PROVIDERS: PCP Family Medicine; Visit Provider Nurse Practitioner Family
DX: E11.621 Type 2 diabetes mellitus with foot ulcer (principal); L97.518 Non-pressure chronic ulcer of other part of right foot with other specified severity; I89.0 Lymphedema, not elsewhere classified; E11.22 Type 2 diabetes mellitus with diabetic chronic kidney disease; N18.5 Chronic kidney disease, stage 5; Z96.41 Presence of insulin pump (external) (internal); Z99.2 Dependence on renal dialysis
CPT/HCPCS: 11042

== ENCOUNTER 2024-01-24 09:59 | Outpatient (CLI) | payer MEDICARE, BC, SELFPAY | END 2024-01-24 10:00 | disposition home or self-care (01) | LOC: WOUND 09:59 | PROVIDERS: PCP Family Medicine; Visit Provider Nurse Practitioner Family | DX: E11.621 Type 2 diabetes mellitus with foot ulcer (principal); L97.514 Non-pressure chronic ulcer of other part of right foot with necrosis of bone; E11.22 Type 2 diabetes mellitus with diabetic chronic kidney disease; N18.5 Chronic kidney disease, stage 5; Z96.41 Presence of insulin pump (external) (internal); Z99.2 Dependence on renal dialysis | CPT/HCPCS: 11042 ==

== ENCOUNTER 2024-01-31 09:52 | Outpatient (CLI) | payer MEDICARE, BC, SELFPAY ==
--- OUTSIDE RECORDS SUMMARY | 2024-01-31 09:54 | XMS_ITS | Clinical Summary ---
Author Organization [facility] Address [address] [place] [address] Care Team Providers Care Piano Sounding Board Matcher Name Role Phone Elsewhere, Pcp Primary Care Provider Unavailabl e Source Comments Patient records contain information from all sites at [facility]. For routine questions regarding patient records, call [phone] during business hours, M-F 8:00 AM - 5:00 PM Central Time. Record requests for emergency care only can be directed to [phone] at any time.[facility] Allergies Active Allergy Reactions Criticality Noted Date Comments Gabapentin Other (see comments) Medium 08/04/2020 Dizzy, memory issue Morphine Itching,Rash Medium 02/14/2012 itchy Pregabalin Anaphylaxis High 02/16/2017 swell Zpphswn-Ohj-Srz Reductase Inhibitors Myalgia Low 02/13/2014 Medications Medication [...] TAKE ONE CAPSULE BY MOUTH EVERY DAY GROUP HOME 01/14/2022 Active allopurinoL (ZYLOPRIM) 100 mg [...] 04/21/2018 Restless Leg Syndrome 01/12/2018 Atherosclerosis Of [place] Ar teries Of Extremities With Intermittent Claudication Right Leg 08/08/2017 Hyperlipidemia 07/22/2017 Ulcer Leg Left 04/19/2017 Ulcer Toe Left 04/19/2017 Atherosclerosis Of [place] Ar teries Of Left Leg With Ulceration Of Unspecified Site 04/19/2017 Peripheral Arterial Disease 02/16/2017 Hypertension NOS 02/16/2017 Hypertensive Chronic Kidney Disease With Stage 1 Through Stage 4 Chronic Kidney Disease, Or Unspecified Chronic Kidney Disease 09/23/2016 Overview (10/05/2016): Hypertension (HTN) And CKD Stage 1-4 Alf Use Of Insulin Active 09/23/2016 Overview (10/05/2016): Alf Use Of Insulin Active Depression Major Recurrent Moderate 06/22/2016 Overview (10/05/2016): Depression Major Recurrent Moderate Diabetes Mellitus Type 2 Wit h Other Circulatory Complication 06/22/2016 Overview (10/05/2016): DM2 Peripheral Neuropathy Uncontrolled Encounters Date Type Department Care Team Description 01/14/2024 Refill Division of Nephrology and Hypertension in [place], [place] [address] [place] [address] Onesimo Rodriguez M.D. Med Refill 01/05/2024 Orders Only Department of Vascular Medicine in [place], [place] [address] [place] [address] Jayjay Pak P.A.-C. Follow Up Examination Status Post Surgery (Primary Dx); Peripheral Arterial Disease (HCC) from Last 3 Months Immunizations Name Administration Dates Next Due HZV (ZOSTAVAX) 02/02/2012 Influenza Split 02/10/2017 Influenza TIV (IM) 05/10/2013, 2,05/27/2011,2009,03/13/2008,03/03/2007,04/04/2006 Influenza, Unspecified 02/16/2016,2015,03/17/2015,2013,05/10/2013 PCV13 04/11/2017 PPSV23 04/24/2018,02/14/2012,02/13/2010 Td (Adult), adsorbed 03/24/2007,05/16/1996 Tdap 08/16/2016,08/16/2016 influenza trivalent high dos e (HD)(PF) 03/01/2018 Family History Medical History Relation Name [...] How often do you attend quaker or church serv ices? Never 03/24/2021 Do [...] Answer Date Recorded PHQ-2 Score 0 10/20/2018 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 [address] [place] [phone] 03/05/2024 11:00 AM CDT Appointment Department of Radiology, [facility], in [place], [place] [address] [place] [phone] Jayjay Pak P.A.-C. [address] [place] [phone] 03/05/2024 1:45 PM CDT Appointment Department of Radiology, [facility], in [place], [place] [address] [place] [phone] Jayjay Pak P.A.-C. [address] [place] [address] 03/05/2024 3:00 PM CDT Office Visit Department of Vascular Medicine in [place], [place] [address] [place] [address] Jayjay Pak P.A.-C. [address] [place] [address] Health Maintenance Due Date Last Done Comments CT Colonography 1950 Cologuard 1950 Depression Monitoring (PHQ-9) 1950 Hepatitis B Vaccines (1 of 3 - Risk 3-dose series) 2012 Zoster Vaccines (1 of 2) 03/29/2012 02/02/2012 Dilated Eye Exam 08/19/2017 08/19/2016 FIT 08/24/2017 08/24/2016 Diabetic Office Visit with F oot Exam 07/22/2018 07/22/2017, 06/22/2016 Diabetes Education 05/01/2019 05/01/2018, 09/23/2016 Lung Cancer Screening 05/07/2021 05/07/2020 Fall Risk Screen (Annual) 05/16/2023 Hemoglobin A1C 05/28/2023 11/25/2022, 08/15, 05/06/2022, Additional history exists COVID-19 Vaccine (2022-06 4 season) 2024 10/27/2021, 04/02/2021, 08/09/2020, Additional history exists Influenza Vaccine (#1) 2024 [...] 02/14/2023, 11/17/2022 Medical Devices Implanted Type Area Tenant Relations Coordinator Device Identifier Shelf Expiration Date Model / Serial / Lot Patch Vasc Bovine.08cm X 8cm - Flores [id number] Implanted:Qty: 1 on 04/04/2017 Mesh or Patch Other/Legacy - See Implant Description Synovis Description:Device Manufactu rer - Synovis. Body Location - Other. Vascular. Device Status Text - [id number]. Ocular Lens-10/29/2007 Implanted:10/28 by Nato Dougherty, JULIÁN, C.N.P., R.N. (Quantity not on file) Ocular Lens Bilateral: Eye Description:Cataract extract ion and insertion of intraocular lens 06/22/2016 09:27 - [employer] [facility] bilateral Conversions - Default Historical Implant Device [...] 6mm X 29mm X 135cm - [place] [id number] Implanted:Qty: 1 on 03/04/2017 Vascular Graft [place] Description:Device Manufactu rer - [employer]. Device Status Text - [id number]. Stent Vbx [id number] - [place] [id number] Implanted:Qty: 1 on 03/04/2017 Vascular Graft Other/Legacy - See Implant Description [employer] Description:Device Manufactu rer - [employer] Body Location - Other. n/a. Device Status Text - [id number]. Stent Vbx [id number] - [place] [id number] Implanted:Qty: 1 on 03/04/2017 Vascular Graft Other/Legacy - See Implant Description [employer] Description:Device Manufactu rer - [employer] Body Location - Other. n/a. Device Status Text - [id number]. Stent Zilver Ptx 6mm X 40mm - [place] [id number] Implanted:Qty: 1 on 04/04/2017 Vascular Stent Other/Legacy - See Implant Description [employer] Description:Device Manufactu rer - LIANAI. Body Location - Other. Left. Device Status Text - [id number]. Stent Zilver Ptx 6mm X 60mm - [place] [id number] Implanted:Qty: 1 on 04/04/2017 Vascular Stent Other/Legacy - See Implant Description [employer] Description:Device Manufactu rer - LIANAI. Body Location - Other. Left. Device Status Text - [id number]. Stent Zilver Ptx 6mm X 80mm - [place] [id number] Implanted:Qty: 1 on 08/31/2017 Vascular Stent Right: Other/Legacy - See Implant Description [employer] / [id number] / Description:Device Manufactu rer - [employer]. Body Location - Right. Device Status Text - [id number]. Stent Zilver Ptx 6mm X 40mm - [place] [id number] Implanted:Qty: 1 on 08/31/2017 Vascular Stent Right: Other/Legacy - See Implant Description [employer] / [id number] / Description:Device Manufactu rer - LIANAI. Body Location - Right. Device Status Text - [id number]. Stnt Innova Otw [id number] - [id number] Implanted:Qty: 1 on 04/18/2018 by Kemar Velásquez M.B.B.S. at [facility] Vascular Stent [employer] 05/23/2020 [id number] / / [id number] Stnt Innova Otw [id number] - [id number] Implanted:Qty: 1 on 05/11/2019 by Kemar Velásquez M.B.B.S. at [facility] Vascular Stent Left: Leg [employer] 09/05/2020 [id number] / / [id number] Procedures Procedure Name Priority Date/Time Associated Diagnosis [...] Renal Disease Acidosis Metabolic Hyperchloremic Atherosclerosis Of [place] Arteries Of Extremities With Intermittent Claudication Right [...] AM CDT 02/17/2023 11:01 AM CDT Narrative [facility] - 02/17/2023 4:02 PM CDT Specimen Information: Specimen ID: [id number] Specimen Type: Blood Specimen Collection Start Date: 02/17/2023 ??9:35 AM Specimen Received Date: 02/17/2023 11:01 AM Specimen ID: [id number] Specimen Type: Blood Specimen Collection Start Date: 02/17/2023 ??9:35 AM Specimen Received Date: 02/17/2023 ??3:35 PM Haseeb Menon Jr., D.O. LAB BLOOD AD D-ON [facility] [address] [facility] [place] [address] [id number] AUST [facility] [address] [place] [address] * HCV Ab Scrn w/Reflex to HCV PCR, Serum (02/17/2023 9:35 AM CDT) HCV Ab Screen, S Negative Negative 02/18/20 3:35 PM CDT MKTO Comment: Biotin has been identified by the micro computer specialist as a potential interfering substance. Higher concentrations of biotin may be found in multivitamins, hair/nail supplements, and workout supplements. If the result does not match clinical observations, repeat testing after patient refrains from the use of supplements for at least 12 hours. Blood (Blood, Venous) 02/17/2023 9:35 AM CDT 02/17/2023 2:20 PM CDT Narrative [facility] - 02/17/2023 3:35 PM CDT Specimen Information: Specimen ID: [id number] Specimen Type: Blood Specimen Collection Start Date: 02/17/2023 ??9:35 AM Specimen Received Date: 02/17/2023 ??2:20 PM Specimen ID: [id number] Specimen Type: Blood Specimen Collection Start Date: 02/17/2023 ??9:35 AM Specimen Received Date: 02/17/2023 ??2:16 PM Haseeb Menon Jr., D.O. LAB MICROBIO LOGY - BLOOD ORDERABLES Performing Organization Address [facility] Co de Phone Number [facility] [address] [place] [address], [facility] MKTO [facility] [place] [address] [place] [address] * (ABNORMAL) Albumin, Random, Urine (02/17/2023 9:26 AM CDT) Microalbumin 895.0 mg/L 02/17/2023 1:53 PM CDT OWAT Creatinine 42 mg/dL 02/17/2023 12:50 PM CDT OWAT Albumin/Creatinin e Ratio 2131(H) <17 mg/g 02/17/2023 1:53 PM CDT OW[facility] Urine (Urine, Voided) 02/17/2023 9:26 AM CDT 02/17/2023 11:00 AM CDT Haseeb Menon Jr., D.O. LAB URINE OR DERABLES Performing Organization Address City/[facility] Co de Phone Number [facility] [address] [place] [address], [facility] OWAT [facility] [place] [address] [place] [address] * (ABNORMAL) Hemoglobin A1c (11/25/2022 2:09 PM [...] D.O. LAB BLOOD AD D-ON [facility] [address] [place] [address], [place] OWAT [facility] in [place] [address] [place] [address] * (ABNORMAL) Lipid Panel (02/10/2021 8:27 AM CDT) [facility] Cholesterol, Total 102 mg/dL 2020 10:06 [...] CDT Kemar Reyes LAB BLOOD ADD-ON [facility] [address] [place] [address], [facility] DTL [facility] [address] [place] [address] * CT Abdomen Pelvis Angiogram with IV [...] Advance Directives For more information, please contact: [phone] * Full Code (Latest Code Status on [...] Answer Comments Full Code: Discussed Care Teams Piano Sounding Board Matcher Relationship Specialty Start Date End Date Elsewhere, Pcp PCP - General Family Medicine 01/29/20
--- OUTSIDE RECORDS SUMMARY | 2024-01-31 09:54 | XMS_ITS ---
Author Organization [facility] Address [address] [place] [address] Care Team Providers Care Rn Support Services Name Role Phone Unavailable Unavailable Unavailable Surgery Details Not on file Complications Check Surgery Details section. Procedure Estimated Blood Loss Check Surgery Details section. Procedure Findings Check Surgery Details section. Procedure Specimens Taken Check Surgery Details section.
--- OUTSIDE RECORDS SUMMARY | 2024-01-31 09:54 | XMS_ITS | Clinical Summary ---
Author Organization [facility] Address [place], [place] [address] Care Team Providers Care Financial Examiner Name Role Phone Casa Lucia MD Unavailable Unavailable Rudy Riddle MD Unavailable [phone] Rudy Riddle MD Primary Care Provider + Allergies Active Allergy Reactions Criticality Noted Date Comments Gabapentin Other - Describe In Comment Field Medium 08/04/2020 Dizzy, memory issue Dizzy, memory issue Morphine Itching 02/04/2010 After 3 days of use Pregabalin Anaphylaxis,Itching High 02/16/2017 swetesfaye jane Udxvwuq-Hvh-Srq Reductase Inhibitors Myalgia 02/13/2014 Medications Medication Sig [...] Anemia 05/06/2022 Controlled substance agreement terminated 2016 Overview (11/26/2016): Patient termed from the clinic 04/30 Hypertension 08/31/2015 Hyperlipidemia 08/31/2015 Type 2 diabetes mellitus with diabetic polyneuro jackie 02/25/2015 Restless legs syndrome (RLS) 02/02/2012 Issue of repeat prescriptions 12/16/2010 Overview (12/16/2010): Diabetic Neuropathy - taking Oxycontin and Percocet [...] Comments Blood Pressure 162/87 07/21/2022 9:21 PM ANESTHESIOLOGY TECHNOLOGIST Pulse 100 07/21/2022 9:21 PM ANESTHESIOLOGY TECHNOLOGIST Temperature 37.1 ??C (98.8 ??F) 07/21/2022 8:51 PM CS T Respiratory Rate 18 07/21/2022 8:51 PM ANESTHESIOLOGY TECHNOLOGIST Oxygen Saturation 96% 07/21/2022 9:21 PM ANESTHESIOLOGY TECHNOLOGIST Inhaled Oxygen Concentration - - Weight 83.9 kg (185 lb) 07/21/2022 5:35 PM ANESTHESIOLOGY TECHNOLOGIST Height 175.3 cm (5' 9) 07/21/2022 5:35 PM ANESTHESIOLOGY TECHNOLOGIST Body Mass Index 27.32 07/21/2022 5:35 PM ANESTHESIOLOGY TECHNOLOGIST Plan of Treatment Health Maintenance Due Date Last Done Comments COVID-19 vaccine series (#1) 01/30/1955 Hepatitis C screening for ag e 18-79 01/30/1970 Zoster (shingles) series for age 50+ (1 of 2) 03/29/2012 02/02/2012 Medicare Wellness for age 65+ 01/30/2017 BMI (ht and wt on same day) for age 18+ 02/15/2017 02/16/2016, 07/22/2015 Depression screening for age 12+ 02/23/2017 02/24/2016, 02/16/2016, 08/19/2015, Additional history exists Lipids for age 45-75 02/15/2021 02/16/2016, 09/10/2014, 10/09/2013, Additional history exists Influenza for age 65+ 01/15/2024 03/17/2022 , 03/24/2021, 02/20/2020, Additional history exists Tetanus booster 08/16/2026 08/16/2016, 01/2007, 03/24/2007, Additional history exists Colonoscopy through age 75 05/12/203205/12, 02/04/2006 ([facility]) Tdap Completed 08/16/2016 Pneumococcal series for age 65+ Completed 04/24/2018, 04/11/2017, 02/14/2012, Additional history exists Goals Goal Patient Goal Type Associated Problems Recent Progress Patient-Stated? Author BLOOD PRESSURE - MAINTAINS BP less than 140/90 Blood Pressure Rudy Orozco MD Procedures Procedure Name Priority Date/Time Associated Diagnosis Comments COLONOSCOPY 05/12/2022 8:51 AM ANESTHESIOLOGY TECHNOLOGIST LIPID PANEL W REFLEX MEASURED LDL Routine 02/16/2016 8:59 AM CDT Hyperlipidemia, unspecified hyperlipidemia type from Last 3 Months or Most Recently Relevant to Health Maintenance Results * COLONOSCOPY (05/12/2022 8:51 AM ANESTHESIOLOGY TECHNOLOGIST) 05/12/2022 8:51 AM ANESTHESIOLOGY TECHNOLOGIST Narrative Transcriptions Lukas West MD - 05/12/2022 9:03 AM [facility] Patient Name: Onesimo Walton Procedure Date: 05/12/2022 Gender: Male Date of : 1950 Admit Type: Inpatient Procedure: Colonoscopy Proceduralist: Lukas West MD [facility] Indications/Pre-Op Diagnosis: Anemia. Bacteremia Medications: Monitored Anesthesia Care Procedure Description: The patient had risks, benefits and alternatives explained to andgave informed consent. The patient had a stable cardiopulmonary status and judged an adequate candidate for conscious sedation. The [id number] endoscope was passed through the anus and [...] - 199 mg/dL 02/16/2016 11:02 AM CDT [facility] TRIGLYCERIDES 232(H) <150 mg/dL 02/16/2016 11:02 AM CDT [facility] HDL CHOLESTEROL 31(L) >40 mg/dL 02/16/2016 11:02 AM CDT [facility] NON-HDL CHOLESTEROL 147(H) <145 mg/dl 02/16/2016 11:02 AM CDT [facility] CHOL/HDL RATIO 5.74(H) <4.50 02/16/2016 11:02 AM CDT [facility] LDL CHOLESTEROL 101 <=130 mg/dL 02/16/2016 11:02 AM CDT [facility] PATIENT STATUS FASTING 02/16/2016 11:02 AM CDT [facility] Blood BLOOD SPECIMEN / Unknown Venipuncture / Unknown 02/16/2016 8:59 AM CDT 02/16/2016 8:59 AM CDT Rudy Riddle MD CHEMISTRY [facility] [address] [place], [place] [id number] [place] [address] [address] [place] [address], [place] [phone] from Last 3 Months or Most Recently [...] Preferences, Provider to review later Care Teams Financial Examiner Relationship Specialty Start Date End Date Rudy Riddle MD [address] [place] [address] PCP - General Family Practice 05/25/22 [place] [address] [address] [facility] [address] [place] [address] Ophthalmology Ophthalmology Surgery 12/22/11 Rudy Riddle MD [address] [place] [address] Family Practice 05/07/22
--- OUTSIDE RECORDS SUMMARY | 2024-01-31 09:54 | XMS_ITS | Encounter Summary ---
Author Organization [facility] Address [address] [place] [address] Care Team Providers Care Electromedical Equipment Repairer Name Role Phone Elsewhere, Pcp Primary Care Provider Unavailabl e Reason for Visit * Reason Comments Med Refill Encounter Details Date Type Department Care Team (Late st Contact Info) Description 01/14/2024 Refill Division of Nephrology and Hypertension in [place], [place] [address] [place] [address] Onesimo Rodriguez M.D. Med Refill Social History [...] How often do you attend episcopalian or confucianism serv ices? 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/2021 8:13 PM COLLECTOR OF PORT Gender Identity Male 08/31/2019 2:40 PM CDT Sexual Orientation Straight 08/31/2019 2: 40 PM CDT documented as of this encounter Miscellaneous Notes * Telephone Encounter - Haseeb Menon Jr., D.O. - 01/19/2024 12:51 PM CDT He is on PD via [employer], I care for him and he does not take these any longer. RCA documented in this encounter Plan of Treatment Upcoming Encounters Date Type Department Care Team (Latest Contact Info) Description 03/05/2024 7:30 AM CDT Appointment Department of Vascular Medicine in [place], [place] [address] [place] [phone] Jayjay Pak P.A.-C. [address] [place] [address] Discharge Disposition: Home or Self Care 03/05/2024 10:40 AM CDT Ancillary Procedure Department of Cardiovascular Medicine in [place], [place] [address] [place] [address] Jayjay Pak P.A.-C. [address] [place] [phone] 03/05/2024 11:00 AM CDT Appointment Department of Radiology, [facility], in [place], [place] [address] [place] [address] Jayjay Pak P.A.-C. [address] [place] [phone] 03/05/2024 1:45 PM CDT Appointment Department of Radiology, [facility], in [place], [place] [address] [place] [address] Jayjay Pak P.A.-C. [address] [place] [phone] 03/05/2024 3:00 PM CDT Office Visit Department of Vascular Medicine in [place], [place] [address] [place] [address] Jayjay Pak P.A.-C. [address] [place] [phone] documented as of this encounter Visit Diagnoses Not on filedocumented in this encounter Additional Health Concerns Assessment Noted Time PHQ-9 Depression Total Score: 3 01/04/20 18 10:38 AM CDT documented as of this encounter Care Teams Electromedical Equipment Repairer Relationship Specialty Start Date End Date Elsewhere, Pcp PCP - General Family Medicine 01/29/20 documented as of this encounter
--- OUTSIDE RECORDS SUMMARY | 2024-01-31 09:54 | XMS_ITS | Encounter Summary ---
Author Organization [facility] Address [address] [place] [address] Care Team Providers Care Doctor Of Nurse Anesthesia Practice Name Role Phone Elsewhere, Pcp Primary Care Provider Unavailabl e Reason for Referral * Outpatient (Routine) - Authorized Specialty Diagnoses / Procedures Referred By Robi t Referred To Contact Diagnoses Follow Up Examination Status Post Surgery Peripheral Arterial Disease (HCC) Procedures US Lower Extremity Artery Graft Bilateral Jayjay Pak P.A.-C. [address] [place] [address] [facility] Referral ID Status Reason Start Date Expiration Date V isits Requested Visits Authorized [id number] Authorized 01/05/2024 01/04/2025 1 1 * Outpatient (Routine) - Authorized Specialty Diagnoses / Procedures Referred By Robi t Referred To Contact Diagnoses Follow Up Examination Status Post Surgery Peripheral Arterial Disease (HCC) Procedures US Aorta Iliac Arteries Bilateral with Doppler Jayjay Pak P.A.-C. [address] [place] [address] [facility] Referral ID Status Reason Start Date Expiration Date V isits Requested Visits Authorized [id number] Authorized 01/05/2024 01/04/2025 1 1 * Outpatient (Routine) - Authorized Specialty Diagnoses / Procedures Referred By Contac t Referred To Contact Diagnoses Follow Up Examination Status Post Surgery Peripheral Arterial Disease (HCC) Procedures ECG 12 Lead Jayjay Pak P.A.-C. [address] [place] [phone] [facility] Referral ID Status Reason Start Date Expiration Date V isits Requested Visits Authorized [id number] Authorized 01/05/2024 01/04/2025 1 1 * Outpatient (Routine) - Authorized Specialty Diagnoses / Procedures Referred By Robi hong Referred To Contact Vascular Medicine Jayjay Pak P.A.-C. [address] [place] [phone] [facility] Referral ID Status Reason Start Date Expiration Date V isits Requested Visits Authorized [id number] Authorized 01/05/2024 07/06/2025 1 1 * Outpatient (Routine) - Authorized Specialty Diagnoses / Procedures Referred By Robi hong Referred To Contact Diagnoses Follow Up Examination Status Post Surgery Peripheral Arterial Disease (HCC) Procedures Lower Extremity Arterial (MIMI) - Exercise (Claudication) Jayjay Pak P.A.-C. [address] [place] [phone] [facility] Referral ID Status Reason Start Date Expiration Date V isits Requested Visits Authorized [id number] Authorized 01/05/2024 01/04/2025 1 1 Encounter Details Date Type Department Care Team (Late st Contact Info) Description 01/05/2024 Orders Only Department of Vascular Medicine in [place], [place] [address] [place] [phone] Jayjay Pak P.A.-C. [address] [place] [phone] Follow Up Examination Status Post Surgery (Primary [...] often do you attend protestant or nondenominational serv ices? 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/2021 8:13 PM UNDERGROUND HEAVY EQUIPMENT OPERATOR Gender Identity Male 08/31/2019 2:40 PM CDT Sexual Orientation Straight 08/31/2019 2: 40 PM CDT documented as of this encounter Plan of Treatment Upcoming Encounters Date Type Department Care Team (Latest Contact Info) Description 03/05/2024 7:30 AM CDT Appointment Department of Vascular Medicine in [place], [place] [address] [place] [address] Jayjay Pak P.A.-C. [address] [place] [phone] Discharge Disposition: Home or Self Care 03/05/2024 10:40 AM CDT Ancillary Procedure Department of Cardiovascular Medicine in [place], [place] [address] [place] [phone] Jayjay Pak P.A.-C. [address] [place] [phone] 03/05/2024 11:00 AM CDT Appointment Department of Radiology, [facility], in [place], [place] [address] [place] [address] Jayjay Pak P.A.-C. [address] [place] [phone] 03/05/2024 1:45 PM CDT Appointment Department of Radiology, [facility], in [place], [place] [address] [place] [address] Jayjay Pak P.A.-C. [address] [place] [phone] 03/05/2024 3:00 PM CDT Office Visit Department of Vascular Medicine in [place], [place] [address] [place] [phone] Jayjay Pak P.A.-C. [address] [place] [phone] Scheduled Orders Name Type Priority Associated Diagnoses [...]
--- OUTSIDE RECORDS SUMMARY | 2024-01-31 09:54 | XMS_ITS | Referral Summary ---
Author Organization [facility] Address [address] [place] [address] Care Team Providers Care Clay Processing Factory Worker Name Role Phone Elsewhere, Pcp Primary Care Provider Unavailabl e Source Comments Patient records contain information from all sites at [facility]. For routine questions regarding patient records, call [phone] during business hours, M-F 8:00 AM - 5:00 PM Central Time. Record requests for emergency care only can be directed to [phone] at any time.[facility] Encounters Date Type Department Care Team Description 01/14/2024 Refill Division of Nephrology and Hypertension in [place], [place] [address] [place] [address] Onesimo Rodriguez M.D. Med Refill 01/05/2024 Orders Only Department of Vascular Medicine in [place], [place] [address] [place] [address] Jayjay Pak P.A.-C. Follow Up Examination Status Post Surgery (Primary Dx); Peripheral Arterial Disease (HCC) from Last 3 Months Allergies Active Allergy Reactions Criticality Noted Date Comments Gabapentin Other (see comments) Medium 08/04/2020 Dizzy, memory issue Morphine Itching,Rash Medium 02/14/2012 itchy Pregabalin Anaphylaxis High 02/16/2017 swell Ffdqyil-Syg-Ael Reductase Inhibitors Myalgia Low 02/13/2014 Medications Medication [...] 04/21/2018 Restless Leg Syndrome 01/12/[address] [place] Ar teries Of Extremities With Intermittent Claudication Right Leg 08/08/2017 Hyperlipidemia 07/22/2017 Ulcer Leg Left 04/19/2017 Ulcer Toe Left 04/19/[address] [place] Ar teries Of Left Leg With Ulceration Of Unspecified Site 04/19/2017 Peripheral Arterial Disease 02/16/2017 Hypertension NOS 02/16/2017 Hypertensive Chronic Kidney Disease With Stage 1 Through Stage 4 Chronic Kidney Disease, Or Unspecified Chronic Kidney Disease 09/23/2016 Overview (10/05/2016): Hypertension (HTN) And CKD Stage 1-4 Technical Mgr Use Of Insulin Active 09/23/2016 Overview (10/05/2016): Mcfp Use Of Insulin Active Depression Major [...] influenza trivalent high dos e (HD)(PF) 03/01/2018 Social History Tobacco Use Types Packs/Day [...] How often do you attend christian or mandaen serv ices? 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 [address] [place] [phone] Discharge Disposition: Home or Self Care 03/05/2024 10:40 AM CDT Ancillary Procedure Department of Cardiovascular Medicine in [place], [place] [address] [place] [phone] Jayjay Pak P.A.-C. [address] [place] [phone] 03/05/2024 11:00 AM CDT Appointment Department of Radiology, [facility], in [place], [place] [address] [place] [address] Jayjay Pak P.A.-C. [address] [place] [phone] 03/05/2024 1:45 PM CDT Appointment Department of Radiology, [facility], in [place], [place] [address] [place] [address] Jayjay Pak P.A.-C. [address] [place] [phone] 03/05/2024 3:00 PM CDT Office Visit Department of Vascular Medicine in [place], [place] [address] [place] [address] Jayjay Pak P.A.-C. [address] [place] [phone] Medical Devices Implanted Type Area Food And Beverage Outlets Manager Device Identifier Shelf Expiration Date Model / Serial / Lot Patch Vasc Bovine.08cm X 8cm - Flores [id number] Implanted:Qty: 1 on 04/04/2017 Mesh or Patch Other/Legacy - See Implant Description Synovis Description:Device Manufactu rer - Synovi. Body Location - Other. Vascular. Device Status Text - [id number]. Ocular Lens-10/29/2007 Implanted:10/28 by Nato Dougherty, JULIÁN, C.N.P., R.N. (Quantity not on file) Ocular Lens Bilateral: Eye Description:Cataract extract ion and insertion of intraocular lens 06/22/2016 09:27 - NATO DOUGHERTY APRN WEATHERIZATION INSTALLER bilateral Conversions - Default Historical Implant Device [...] 6mm X 29mm X 135cm - Flores [id number] Implanted:Qty: 1 on 03/04/2017 Vascular Graft Agawam Description:Device Manufactu rer - [employer]. Device Status Text - [id number]. Stent Vbx [id number] - Flores [id number] Implanted:Qty: 1 on 03/04/2017 Vascular Graft Other/Legacy - See Implant Description Agawam Description:Device Manufactu rer - [employer] Body Location - Other. n/a. Device Status Text - [id number]. Stent Vbx [id number] - Flores [id number] Implanted:Qty: 1 on 03/04/2017 Vascular Graft Other/Legacy - See Implant Description Agawam Description:Device Manufactu rer - [employer] Body Location - Other. n/a. Device Status Text - [id number]. Stent Zilver Ptx 6mm X 40mm - Flores [id number] Implanted:Qty: 1 on 04/04/2017 Vascular Stent Other/Legacy - See Implant Description [employer] Description:Device Manufactu rer - [employer]. Body Location - Other. Left. Device Status Text - [id number]. Stent Zilver Ptx 6mm X 60mm - Flores [id number] Implanted:Qty: 1 on 04/04/2017 Vascular Stent Other/Legacy - See Implant Description [employer] Description:Device Manufactu rer - [employer]. Body Location - Other. Left. Device Status Text - [id number]. Stent Zilver Ptx 6mm X 80mm - Flores [id number] Implanted:Qty: 1 on 08/31/2017 Vascular Stent Right: Other/Legacy - See Implant Description [employer] / [id number] / Description:Device Manufactu rer - [employer]. Body Location - Right. Device Status Text - [id number]. Stent Zilver Ptx 6mm X 40mm - Flores [id number] Implanted:Qty: 1 on 08/31/2017 Vascular Stent Right: Other/Legacy - See Implant Description [employer] / [id number] / Description:Device Manufactu rer - [employer]. Body Location - Right. Device Status Text - [id number]. Stnt Innova Otw [id number] - [id number] Implanted:Qty: 1 on 04/18/2018 by Kemar Velásquez M.B.B.S. at [facility] Vascular Stent [employer] 05/23/2020 [id number] / / [id number] Stnt Innova Otw [id number] - [id number] Implanted:Qty: 1 on 05/11/2019 by Kemar Velásquez M.B.B.S. at [facility] Vascular Stent Left: Leg [employer] 09/05/2020 [id number] / / [id number] Procedures Procedure Name Priority Date/Time Associated Diagnosis [...] AM CDT 02/17/2023 11:01 AM CDT Narrative [facility] - 02/17/2023 4:02 PM CDT Specimen Information: Specimen ID: [id number] Specimen Type: Blood Specimen Collection Start Date: 02/17/2023 ??9:35 AM Specimen Received Date: 02/17/2023 11:01 AM Specimen ID: [id number] Specimen Type: Blood Specimen Collection Start Date: 02/17/2023 ??9:35 AM Specimen Received Date: 02/17/2023 ??3:35 PM Estiven He Jr.O. LAB BLOOD AD D-ON [facility] [address] [place] [address], [facility] [place] [place] [address] AUST [facility] [address] [place] [address] * HCV Ab Scrn w/Reflex to HCV PCR, Serum (02/17/2023 9:35 AM CDT) HCV Ab Screen, S Negative Negative 02/18/20 3:35 PM CDT [facility] Comment: Biotin has been identified by the farrowing worker as a potential interfering substance. Higher [...] 3:35 PM CDT Specimen Information: Specimen ID: [id number] Specimen Type: Blood Specimen Collection Start Date: 02/17/2023 ??9:35 AM Specimen Received Date: 02/17/2023 ??2:20 PM Specimen ID: [id number] Specimen Type: Blood Specimen Collection Start Date: 02/17/2023 ??9:35 AM Specimen Received Date: 02/17/2023 ??2:16 PM Estiven He Jr.O. LAB MICROBIO LOGY [place] [address], [facility] [place] [address] * (ABNORMAL) Albumin, Random, Urine (02/17/2023 9:26 AM CDT) Microalbumin 895.0 mg/L 02/17/2023 1:53 PM CDT [facility] Creatinine 42 mg/dL 02/17/2023 12:50 PM CDT [facility] Albumin/Creatinin e Ratio 2131(H) <17 mg/g 02/17/2023 1:53 PM CDT [facility] Urine (Urine, Voided) 02/17/2023 9:26 AM CDT 02/17/2023 11:00 AM CDT Haseeb Menon Jr., D.O. LAB URINE OR DERABLES Performing Organization Address City/[facility] Co de Phone Number [facility] [address] [place] [address], [facility] OW[facility] [place] [address] [place] [address] * (ABNORMAL) Hemoglobin A1c (11/25/2022 2:09 PM CDT) Hemoglobin A1c, B 6.2(H) 4.2 - 5.6 % 11/25/2022 4:40 PM CDT [facility] Comment: Hemoglobin A1c values of 5.7-6.4 percent indicate an increased risk for developing diabetes mellitus. In diabetic patients, HbA1c goals should be discussed with healthcare provider. Blood (Blood, Venous) 11/25/2022 2:09 PM CDT 11/25/2022 3:35 PM CDT Haseeb Menon Jr., D.O. LAB BLOOD AD D-ON Performing Organization Address [facility] Co de Phone Number [facility] [address] [place] [address], [facility] [place] [address] [place] [address] * (ABNORMAL) Lipid Panel (02/10/2021 8:27 AM [...] AM CDT Kemar Reyes LAB BLOOD ADD-ON [facility] [address] [place] [address], [facility] [address] [place] [address] * CT Abdomen Pelvis Angiogram with IV [...] Advance Directives For more information, please contact: [phone] * Full Code (Latest Code Status on [...] Answer Comments Full Code: Discussed Care Teams Clay Processing Factory Worker Relationship Specialty Start Date End Date Elsewhere, Pcp PCP - General Family Medicine 01/29/20
--- OUTSIDE RECORDS SUMMARY | 2024-01-31 09:55 | XMS_ITS | Encounter Summary ---
[facility] Organization [facility] Address [address] [place] [address] Care Team Providers Care Cyber Crime Investigator Name Role Phone Elsewhere, Pcp Primary Care Provider Unavailabl e Encounter Details Date Type Department Care Team (Late st Contact Info) Description 08/19/2016 Historical Ophthalmology [facility] Chalo Holland Jr., M.D. [address] [place] [address] Social History Tobacco Use Types Packs/Day Years Used Date Smoking Tobacco: Every Day Sex and Gender Information Value Date Recorded Sex Assigned at Male 03/24/2021 8:13 PM OBGYN HOSPITALIST PHYSICIAN Gender Identity Male 08/31/2019 2:40 PM CDT [...] IOL OU CDM Reports - EYEGEN Id: [id number] Status: Fnl documented in this encounter Plan of Treatment Upcoming Encounters Date Type Department Care Team (Latest Contact Info) Description 03/05/2024 7:30 AM CDT Appointment Department of Vascular Medicine in [place], [place] [address] [place] [address] Jayjay Pak P.A.-C. [address] [place] [phone] Discharge Disposition: Home or Self Care 03/05/2024 10:40 AM CDT Ancillary Procedure Department of Cardiovascular Medicine in [place], [place] [address] [place] [phone] Jayjay Pak P.A.-C. [address] [place] [phone] 03/05/2024 11:00 AM CDT Appointment Department of Radiology, [facility], in [place], [place] [address] [place] [phone] Jayjay Pak P.A.-C. [address] [place] [phone] 03/05/2024 1:45 PM CDT Appointment Department of Radiology, [facility], in [place], [place] [address] [place] [phone] Jayjay Pak P.A.-C. [address] [place] [phone] 03/05/2024 3:00 PM CDT Office Visit Department of Vascular Medicine in [place], [place] [address] [place] [phone] Jayjay Pak P.A.-C. [address] [place] [phone] documented as of this encounter Visit Diagnoses Not on filedocumented in this encounter Additional Health Concerns Infection Onset Date Last Indicated Resolved Time COVID19 Pending 05/08/2020 05/08/2020 05/08/2020 2 :44 PM OBGYN HOSPITALIST PHYSICIAN Assessment Noted Time PHQ-9 Depression Total Score: 7 08/17/19 17 9:01 AM CDT documented as of this encounter Care Teams Cyber Crime Investigator Relationship Specialty Start Date End Date Elsewhere, Pcp PCP - General Family Medicine 01/29/20 documented as of this encounter
== END 2024-01-31 09:53 | disposition home or self-care (01) ==
LOC: WOUND 09:52
PROVIDERS: PCP Family Medicine; Visit Provider Nurse Practitioner Family
DX: E11.621 Type 2 diabetes mellitus with foot ulcer (principal); I89.0 Lymphedema, not elsewhere classified; L97.518 Non-pressure chronic ulcer of other part of right foot with other specified severity; E11.22 Type 2 diabetes mellitus with diabetic chronic kidney disease; N18.5 Chronic kidney disease, stage 5; Z96.41 Presence of insulin pump (external) (internal); Z99.2 Dependence on renal dialysis
CPT/HCPCS: 15275; Q4201

== ENCOUNTER 2024-02-07 09:55 | Outpatient (CLI) | payer MEDICARE, BC, SELFPAY ==
--- OUTSIDE RECORDS SUMMARY | 2024-02-07 09:57 | XMS_ITS | Clinical Summary ---
Author Organization [facility] Address [place], [place] [address] Care Team Providers Care Brush Holder Inspector Name Role Phone Casa Lucia MD Unavailable Unavailable Rudy Riddle MD Unavailable [phone] Rudy Riddle MD Primary Care Provider + Allergies Active Allergy Reactions Criticality Noted Date Comments Gabapentin Other - Describe In Comment Field Medium 08/04/2020 Dizzy, memory issue Dizzy, memory issue Morphine Itching 02/04/2010 After 3 days of use Pregabalin Anaphylaxis,Itching High 02/16/2017 swetesfaye jane Pusuhhc-Rvz-Fmu Reductase Inhibitors Myalgia 02/13/2014 Medications Medication Sig [...] Comments Blood Pressure 162/87 07/21/2022 9:21 PM [employer] Pulse 100 07/21/2022 9:21 PM [employer] Temperature 37.1 ??C (98.8 ??F) 07/21/2022 8:51 PM CS T Respiratory Rate 18 07/21/2022 8:51 PM [employer] Oxygen Saturation 96% 07/21/2022 9:21 PM [employer] Inhaled Oxygen Concentration - - Weight 83.9 kg (185 lb) 07/21/2022 5:35 PM [employer] Height 175.3 cm (5' 9) 07/21/2022 5:35 PM [employer] Body Mass Index 27.32 07/21/2022 5:35 PM [employer] Plan of Treatment Health Maintenance Due Date [...] age 77 05/12/203205/12, 02/04/2006 [facility] Tdap Completed 08/16/2016 Pneumococcal series for age 65+ Completed 04/24/2018, 04/11/2017, 02/14/2012, Additional history exists Goals Goal Patient Goal Type Associated Problems Recent Progress Patient-Stated? Author BLOOD PRESSURE - MAINTAINS BP less than 140/90 Blood Pressure Rudy Orozco MD Procedures Procedure Name Priority Date/Time Associated Diagnosis Comments COLONOSCOPY 05/12/2022 8:51 AM [employer]ANCE [employer] LIPID PANEL W REFLEX MEASURED LDL Routine 02/16/2016 8:59 AM CDT Hyperlipidemia, unspecified hyperlipidemia type from Last 3 Months or Most Recently Relevant to Health Maintenance Results * COLONOSCOPY (05/12/2022 8:51 AM [employer]ANCE [employer]) 05/12/2022 8:51 AM [employer] Narrative Transcriptions Lukas West MD - 05/12/2022 [...] for conscious sedation. The [facility]-[id number] endoscope was passed through the anus and [...] - 199 mg/dL 02/16/2016 11:02 AM CDT [facility] TRIGLYCERIDES 232(H) <150 mg/dL 02/16/2016 11:02 AM CDT [facility] HDL CHOLESTEROL 31(L) >40 mg/dL 02/16/2016 11:02 AM CDT [facility] NON-HDL CHOLESTEROL 147(H) <145 mg/dl 02/16/2016 11:02 AM CDT [facility] CHOL/HDL RATIO 5.74(H) <4.50 02/16/2016 11:02 AM CDT [facility] LDL CHOLESTEROL 101 <=130 mg/dL 02/16/2016 11:02 AM CDT [facility] PATIENT STATUS FASTING 02/16/2016 11:02 AM CDT [facility] Blood BLOOD SPECIMEN / Unknown Venipuncture / Unknown 02/16/2016 8:59 AM CDT 02/16/2016 8:59 AM CDT Rudy Riddle MD CHEMISTRY [facility] [address] [place], [place] [id number] [place] [address] [address] [place] [address], [place] [phone] from Last 3 Months or Most Recently [...] Preferences, Provider to review later Care Teams Brush Holder Inspector Relationship Specialty Start Date End Date Rudy Riddle MD [address] [place] [address] PCP - General Family Practice 05/25/22 [place] [address] [address] [facility] [address] ANGIE Phillips [address] Ophthalmology Ophthalmology Surgery 12/22/11 Rudy Riddle MD [address] [place] [address] Family Practice 05/07/22
--- OUTSIDE RECORDS SUMMARY | 2024-02-07 09:57 | XMS_ITS | Continuity of Care Document ---
Author Organization [facility] Address [address] [place] [address] Phone Care Team Providers Care Director Of Community Life Name Role Phone Dto Warner Unavailable Unavailable Medications Medication Instructions Dosage Effective Dates (start - stop) Status Comments AMPICILLIN-SULBACTAM (unknown strength) Not Available - Active MINOCYCLINE HCL (unknown strength) Not Available - Active Procedures Procedure Date Office/Outpatient Visit,Est, Mod 2022 OFFICE/OUTPATIENT VISIT EST Phone Office/Outpatient Visit,Est, Mod 2022 Followup Hospital Care, [facility] 2021 Advance Directives Directive Yes / No Effective Date File Name No Information Encounters Encounter Description Practice Location Reason(s) For Visit Diagnoses Date Provider Providers Copied on Encounter [facility], [address], [place], [place], [id number] , [place] tel: [phone] [facility] - [facility] No Information 3 Kindra Chris. [facility], [address] [place] [address] [address], [place], [address], [place]. tel: [phone] Office/Outpa tient Visit,Est, Mod [facility], [address], [place], [place], [id number] , [place] tel: [phone] [facility] - [facility] Spinal stenosis, lumbar region with neurogenic claudication 3 Camille Bob. [facility], [address] [place] [address], [address], [place], [address], [place]. tel: [phone] Referring Provider: Lisbeth Thomas, [facility] [address], [address], [place], [address]. [phone] OFFICE/OUTPA TIENT VISIT EST Phone [facility], [address], [place], [place], [id number] , [place] [phone] [facility] - [place] No Information 3 Obrien Lisbeth. [facility], [address], [address], [place], [address], [place]. [phone] Referring Provider: Lisbeth Thomas, [facility] [address], [address], [place], [address]. [phone] Office/Outpa tient Visit,Est, Mod [facility], [address], [place], [place], [id number] , [place] [phone] [facility] Low back pain, unspecifiedOther specified soft tissue disorders 3 Obrien Lisbeth. [facility], [address], [address], [place], [address], [place]. [phone] Referring Provider: Lisbeth Thomas, [facility] [address], [address], [place], [address]. [phone] Followup Hospital Care, Moderate [facility], [address], [place], [place], [id number] , [place] [phone] [facility] No Information 2 Dhaval Velez. [facility], [address], [address], [place], [address], [place]. [phone] Referring Provider: Rudy Riddle, [facility] [address], [address]. tel:[phone] Family History Family Member Type Diagnosis Age At Onset No Information Payers Payer name Insurance type Covered libertarian ID Authorja[place]ivia [place]) [place] [id number] Medicare [facility] [id number] 1 Social History Type Description Quantity Date [...]
--- OUTSIDE RECORDS SUMMARY | 2024-02-07 09:58 | XMS_ITS | Encounter Summary ---
Author Organization [facility] Address [address] [place] [address] Care Team Providers Care Tiltrotor Crew Chief Name Role Phone Elsewhere, Pcp Primary Care Provider Unavailabl e Reason for Visit * Reason Comments Med Refill Encounter Details Date Type Department Care Team (Late st Contact Info) Description 01/14/2024 Refill Division of Nephrology and Hypertension in [place], [place] [address] [place] [address] Onesimo Rodriguez M.D. Med Refill Social History [...] How often do you attend latter-day or baptism serv ices? 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 - 01/19/2024 12:51 PM CDT He is on PD via [place], I care for him and he does not take these any longer. RCA documented in this encounter Plan of Treatment Upcoming Encounters Date Type Department Care Team (Latest Contact Info) Description 03/05/2024 7:30 AM CDT Appointment Department of Vascular Medicine in [place], [place] [address] [place] [phone] Jayjay Pak P.A.-C. [address] [place] [address] Discharge Disposition: Home or Self Care 03/05/2024 10:40 AM CDT Ancillary Procedure Department of Cardiovascular Medicine in [place], [place] [address] [place] [address] Jayjay Pak P.A.-C. [address] [place] [phone] 03/05/2024 11:00 AM CDT Appointment Department of Radiology, [facility], in [place], [place] [address] [place] [address] Jayjay Pka P.A.-C. [address] [place] [phone] 03/05/2024 1:45 PM CDT Appointment Department of Radiology, [facility], in [place], [place] [address] [place] [address] Jayjay Pak P.A.-C. [address] [place] [phone] 03/05/2024 3:00 PM CDT Office Visit Department of Vascular Medicine in [place], [place] [address] [place] [address] Jayjay Pak P.A.-C. [address] [place] [phone] documented as of this encounter Visit Diagnoses Not on filedocumented in this encounter Additional Health Concerns Assessment Noted Time PHQ-9 Depression Total Score: 3 01/04/20 18 10:38 AM CDT documented as of this encounter Care Teams Tiltrotor Crew Chief Relationship Specialty Start Date End Date Elsewhere, Pcp PCP - General Family Medicine 01/29/20 documented as of this encounter
--- OUTSIDE RECORDS SUMMARY | 2024-02-07 09:58 | XMS_ITS | Clinical Summary ---
Author Organization [facility] Address [address] [place] [address] Care Team Providers Care Bonderizer Name Role Phone Elsewhere, Pcp Primary Care Provider Unavailabl e Source Comments Patient records contain information from all sites at [facility]. For routine questions regarding patient records, call [phone] during business hours, M-F 8:00 AM - 5:00 PM Central Time. Record requests for emergency care only can be directed to [phone] at any time.[facility] Allergies Active Allergy Reactions Criticality Noted Date Comments Gabapentin Other (see comments) Medium 08/04/2020 Dizzy, memory issue Morphine Itching,Rash Medium 02/14/2012 itchy Pregabalin Anaphylaxis High 02/16/2017 swell Szkzvaq-Dpp-Fdo Reductase Inhibitors Myalgia Low 02/13/2014 Medications Medication [...] ONE CAPSULE BY MOUTH EVERY DAY INTERMEDIATE 01/14/2022 Active allopurinoL (ZYLOPRIM) 100 mg tablet Take 100 mg by mouth daily. Active aspirin [address] tablet Take [...] report. 45 tablet 3 09/13/2023 09/12/2024 Active sodium bicarbonate 650 mg tabletIndications: Hypertension And Chronic Kidney Disease Stage 4 DISSOLVE AND TAKE ONE TABLET BY MOUTH TWICE A DAY 180 tablet 3 02/01/2023 02/01/2024 Active Problems Patient Care Coordination No te [...] 04/21/2018 Restless Leg Syndrome 01/12/2018 Atherosclerosis Of [place] Ar teries Of Extremities With Intermittent Claudication Right Leg 08/08/2017 Hyperlipidemia 07/22/2017 Ulcer Leg Left 04/19/2017 Ulcer Toe Left 04/19/2017 Atherosclerosis Of [place] Ar teries Of Left Leg With Ulceration Of Unspecified Site 04/19/2017 Peripheral Arterial Disease 02/16/2017 Hypertension NOS 02/16/2017 Hypertensive Chronic Kidney Disease With Stage 1 Through Stage 4 Chronic Kidney Disease, Or Unspecified Chronic Kidney Disease 09/23/2016 Overview (10/05/2016): Hypertension (HTN) And CKD Stage 1-4 Residential Use Of Insulin Active 09/23/2016 Overview (10/05/2016): Registered Vascular Technologist (Rvt) Use Of Insulin Active Depression Major Recurrent Moderate 06/22/2016 Overview (10/05/2016): Depression Major Recurrent Moderate Diabetes Mellitus Type 2 Wit h Other Circulatory Complication 06/22/2016 Overview (10/05/2016): DM2 Peripheral Neuropathy Uncontrolled Encounters Date Type Department Care Team Description 01/14/2024 Refill Division of Nephrology and Hypertension in [place], [place] [address] [place] [address] Onesimo Rodriguez M.D. Med Refill 01/05/2024 Orders Only Department of Vascular Medicine in [place], [place] [address] [place] [address] Jayjay Pak P.A.-C. Follow Up Examination Status [...] How often do you attend quaker or worship serv ices? Never 03/24/2021 Do [...] Answer Date Recorded PHQ-2 Score 0 10/20/2018 [facility] [place] of Occupat ional Health - Occupational Stress [...] your living situation today? I have a [facility] place to live 10/26/2022 Education Answer Date Recorded What is the highest level of school you have completed or the highest degree you have received? 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 [address] [place] [phone] Discharge Disposition: Home or Self Care 03/05/2024 10:40 AM CDT Ancillary Procedure Department of Cardiovascular Medicine in [place], [place] [address] [place] [phone] Jayjay Pak P.A.-C. [address] [place] [phone] 03/05/2024 11:00 AM CDT Appointment Department of Radiology, [facility], in [place], [place] [address] [place] [phone] Jayjay Pak P.A.-C. [address] [place] [phone] 03/05/2024 1:45 PM CDT Appointment Department of Radiology, [facility], in [place], [place] [address] [place] [phone] Jayjay Pak P.A.-C. [address] [place] [address] 03/05/2024 3:00 PM CDT Office Visit Department of Vascular Medicine in [place], [place] [address] [place] [address] Jayjay Pak P.A.-C. [address] [place] [address] Health Maintenance Due Date Last Done Comments [...] 08/15, 05/06/2022, Additional history exists COVID-19 Vaccine (2023-2 5 season) 2024 10/27/2021, 04/02/2021, 08/09/2020, Additional history [...] 02/14/2023, 11/17/2022 Medical Devices Implanted Type Area Program Project Analyst Device Identifier Shelf Expiration Date Model / Serial / Lot Patch Vasc Bovine.08cm X 8cm - Flores [id number] Implanted:Qty: 1 on 04/04/2017 Mesh or Patch Other/Legacy - See Implant Description Synovis Description:Device Manufactu rer - Synovis. Body Location - Other. Vascular. Device Status Text - [id number]. Ocular Lens-10/29/2007 Implanted:10/28 by Nato Dougherty, JULIÁN, C.N.P., R.N. 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 Device Status Text - [id number]. Stent Vbx [id number] - Flores [id number] Implanted:Qty: 1 on 03/04/2017 Vascular Graft Other/Legacy - See Implant Description [place] Description:Device Manufactu rer - [employer] [place] [employer] Body Location - Other. n/a. Device Status Text - [id number]. Stent Vbx [id number] - Flores [id number] Implanted:Qty: 1 on 03/04/2017 Vascular Graft Other/Legacy - See Implant Description [place] Description:Device Manufactu rer - [employer] [place] [employer] Body Location - Other. n/a. Device Status Text - [id number]. Stent Zilver Ptx 6mm X 40mm - Flores [id number] Implanted:Qty: 1 on 04/04/2017 Vascular Stent Other/Legacy - See Implant Description [employer] Description:Device Manufactu rer - [employer]. Body Location - Other. Left. Device Status Text - [id number]. Stent Zilver Ptx 6mm X 60mm - Flores [id number] Implanted:Qty: 1 on 04/04/2017 Vascular Stent Other/Legacy - See Implant Description [employer] Description:Device Manufactu rer - [employer]. Body Location - Other. Left. Device Status Text - [id number]. Stent Zilver Ptx 6mm X 80mm - Flores [id number] Implanted:Qty: 1 on 08/31/2017 Vascular Stent Right: Other/Legacy - See Implant Description [employer] / [id number] / Description:Device Manufactu rer - [employer]. Body Location - Right. Device Status Text - [id number]. Stent Zilver Ptx 6mm X 40mm - Flores [id number] Implanted:Qty: 1 on 08/31/2017 Vascular Stent Right: Other/Legacy - See Implant Description [employer] / [id number] / Description:Device Manufactu rer - [employer]. Body Location - Right. Device Status Text - [id number]. Stnt Innova Otw [id number] - [id number] Implanted:Qty: 1 on 04/18/2018 by Kemar Velásquez M.B.B.S. at [facility] Vascular Stent [employer] 05/23/2020 [id number] / / [id number] Stnt Innova Otw [id number] - [id number] Implanted:Qty: 1 on 05/11/2019 by Kemar Velásquez M.B.B.S. at [facility] Vascular Stent Left: Leg [employer] 09/05/2020 [id number] / / [id number] Procedures Procedure Name Priority Date/Time Associated Diagnosis [...] Renal Disease Acidosis Metabolic Hyperchloremic Atherosclerosis Of [place] Arteries Of Extremities With Intermittent Claudication Right [...] AM CDT 02/17/2023 11:01 AM CDT Narrative [facility] - 02/17/2023 4:02 PM CDT Specimen Information: Specimen ID: [id number] Specimen Type: Blood Specimen Collection Start Date: 02/17/2023 ??9:35 AM Specimen Received Date: 02/17/2023 11:01 AM Specimen ID: [id number] Specimen Type: Blood Specimen Collection Start Date: 02/17/2023 ??9:35 AM Specimen Received Date: 02/17/2023 ??3:35 PM Haseeb Menon Jr., D.O. LAB BLOOD AD D-ON [facility] [address] [facility] [place] [address] [place] [id number] [facility] [address] [place] [address] * HCV Ab Scrn w/Reflex to HCV PCR, Serum (02/17/2023 9:35 AM CDT) HCV Ab Screen, S Negative Negative 02/18/20 3:35 PM CDT MKTO Comment: Biotin has been identified by the ribbon lap machine tender as a potential interfering substance. Higher concentrations of biotin may be found in multivitamins, hair/nail supplements, and workout supplements. If the result does not match clinical observations, repeat testing after patient refrains from the use of supplements for at least 12 hours. Blood (Blood, Venous) 02/17/2023 9:35 AM CDT 02/17/2023 2:20 PM CDT Narrative [facility] - 02/17/2023 3:35 PM CDT Specimen Information: Specimen ID: [id number] Specimen Type: Blood Specimen Collection Start Date: 02/17/2023 ??9:35 AM Specimen Received Date: 02/17/2023 ??2:20 PM Specimen ID: [id number] Specimen Type: Blood Specimen Collection Start Date: 02/17/2023 ??9:35 AM Specimen Received Date: 02/17/2023 ??2:16 PM Haseeb Menon Jr., D.O. LAB MICROBIO LOGY - BLOOD ORDERABLES Performing Organization Address City/[facility] Co de Phone Number [facility] [address] [place] [address], [facility] MKTO [facility] [place] [address] [place] [address] * (ABNORMAL) Albumin, Random, Urine (02/17/2023 9:26 AM CDT) Microalbumin 895.0 mg/L 02/17/2023 1:53 PM CDT OWAT Creatinine 42 mg/dL 02/17/2023 12:50 PM CDT [facility] Albumin/Creatinin e Ratio 2131(H) <17 mg/g 02/17/2023 1:53 PM CDT [facility] Urine (Urine, Voided) 02/17/2023 9:26 AM CDT 02/17/2023 11:00 AM CDT Haseeb Menon Jr., D.O. LAB URINE OR DERABLES Performing Organization Address City/[facility] Co de Phone Number [facility] [address] [place] [address], [facility] OWAT [facility] [place] [address] [place] [address] * (ABNORMAL) Hemoglobin A1c (11/25/2022 2:09 PM [...] Menon Jr., D.O. LAB BLOOD AD D-ON [facility] [address] [place] [address], [place] OWAT [facility] [place] [address] [place] [address] * (ABNORMAL) Lipid Panel (02/10/2021 8:27 AM CDT) [facility] Cholesterol, Total 102 mg/dL 2020 10:06 [...] AM CDT Kemar Reyes LAB BLOOD ADD-ON [facility] [address] [place] [address], [facility] DTL [facility] [place] [address] [place] [address] * CT Abdomen Pelvis Angiogram with IV [...] Advance Directives For more information, please contact: [phone] * Full Code (Latest Code Status on [...] Answer Comments Full Code: Discussed Care Teams Bonderizer Relationship Specialty Start Date End Date Elsewhere, Pcp PCP - General Family Medicine 01/29/20
--- OUTSIDE RECORDS SUMMARY | 2024-02-07 09:58 | XMS_ITS | Encounter Summary ---
Author Organization [facility] Address [address] [place] [address] Care Team Providers Care Clinical Scientist Name Role Phone Elsewhere, Pcp Primary Care Provider Unavailabl e Reason for Referral * Outpatient (Routine) - Authorized Specialty Diagnoses / Procedures Referred By Robi t Referred To Contact Diagnoses Follow Up Examination Status Post Surgery Peripheral Arterial Disease (HCC) Procedures US Lower Extremity Artery Graft Bilateral Jayjay Pak P.A.-C. [address] [place] [address] [facility] Referral ID Status Reason Start Date Expiration Date V isits Requested Visits Authorized [id number] Authorized 01/05/2024 01/04/2025 1 1 * Outpatient (Routine) - Authorized Specialty Diagnoses / Procedures Referred By Robi t Referred To Contact Diagnoses Follow Up Examination Status Post Surgery Peripheral Arterial Disease (HCC) Procedures US Aorta Iliac Arteries Bilateral with Doppler Jayjay Pak P.A.-C. [address] [place] [address] [facility] Referral ID Status Reason Start Date Expiration Date V isits Requested Visits Authorized [id number] Authorized 01/05/2024 01/04/2025 1 1 * Outpatient (Routine) - Authorized Specialty Diagnoses / Procedures Referred By Contac t Referred To Contact Diagnoses Follow Up Examination Status Post Surgery Peripheral Arterial Disease (HCC) Procedures ECG 12 Lead Jayjay Pak P.A.-C. [address] [place] [phone] [facility] Referral ID Status Reason Start Date Expiration Date V isits Requested Visits Authorized [id number] Authorized 01/05/2024 01/04/2025 1 1 * Outpatient (Routine) - Authorized Specialty Diagnoses / Procedures Referred By Robi hong Referred To Contact Vascular Medicine Jayjay Pak P.A.-C. [address] [place] [phone] [facility] Referral ID Status Reason Start Date Expiration Date V isits Requested Visits Authorized [id number] Authorized 01/05/2024 07/06/2025 1 1 * Outpatient (Routine) - Authorized Specialty Diagnoses / Procedures Referred By Robi hong Referred To Contact Diagnoses Follow Up Examination Status Post Surgery Peripheral Arterial Disease (HCC) Procedures Lower Extremity Arterial (MIMI) - Exercise (Claudication) Jayjay Pak P.A.-C. [address] [place] [phone] [facility] Referral ID Status Reason Start Date Expiration Date V isits Requested Visits Authorized [id number] Authorized 01/05/2024 01/04/2025 1 1 Encounter Details Date Type Department Care Team (Late st Contact Info) Description 01/05/2024 Orders Only Department of Vascular Medicine in [place], [place] [address] [place] [phone] Jayjay Pak P.A.-C. [address] [place] [phone] Follow Up Examination Status Post Surgery (Primary [...] How often do you attend mormon or quaker serv ices? 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 [address] [place] [phone] Discharge Disposition: Home or Self Care 03/05/2024 10:40 AM CDT Ancillary Procedure Department of Cardiovascular Medicine in [place], [place] [address] [place] [phone] Jayjay Pak P.A.-C. [address] [place] [phone] 03/05/2024 11:00 AM CDT Appointment Department of Radiology, [facility], in [place], [place] [address] [place] [address] Jayjay Pak P.A.-C. [address] [place] [phone] 03/05/2024 1:45 PM CDT Appointment Department of Radiology, [facility], in [place], [place] [address] [place] [address] Jayjay Pak P.A.-C. [address] [place] [phone] 03/05/2024 3:00 PM CDT Office Visit Department of Vascular Medicine in [place], [place] [address] [place] [phone] Jayjay Pak P.A.-C. [address] [place] [phone] Scheduled Orders Name Type Priority Associated Diagnoses [...] as of this encounter Care Teams Clinical Scientist Relationship Specialty Start Date End Date Elsewhere, Pcp PCP - General Family Medicine 01/29/20 documented as of this encounter
--- OUTSIDE RECORDS SUMMARY | 2024-02-07 09:58 | XMS_ITS ---
Author Organization [facility] Address [address] [place] [address] Care Team Providers Care Customer Contact Representative Name Role Phone Unavailable Unavailable Unavailable Surgery Details Not on file Complications Check Surgery Details section. Procedure Estimated Blood Loss Check Surgery Details section. Procedure Findings Check Surgery Details section. Procedure Specimens Taken Check Surgery Details section.
--- OUTSIDE RECORDS SUMMARY | 2024-02-07 09:58 | XMS_ITS | Encounter Summary ---
Author Organization [facility] Address [address] [place] [address] Care Team Providers Care Order Dispatcher Chief Name Role Phone Elsewhere, Pcp Primary Care Provider Unavailabl e Encounter Details Date Type Department Care Team (Late st Contact Info) Description 08/19/2016 Historical Ophthalmology [facility] Chalo Holland Jr., M.D. 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 [address] [place] [phone] Discharge Disposition: Home or Self Care 03/05/2024 10:40 AM CDT Ancillary Procedure Department of Cardiovascular Medicine in [place], [place] [address] [place] [phone] Jayjay Pak P.A.-C. [address] [place] [phone] 03/05/2024 11:00 AM CDT Appointment Department of Radiology, [facility], in [place], [place] [address] [place] [phone] Jayjay Pak P.A.-C. [address] [place] [phone] 03/05/2024 1:45 PM CDT Appointment Department of Radiology, [facility], in [place], [place] [address] [place] [phone] Jayjay Pak P.A.-C. [address] [place] [phone] 03/05/2024 3:00 PM CDT Office Visit Department of Vascular Medicine in [place], [place] [address] [place] [phone] Jayjay Pak P.A.-C. [address] [place] [phone] documented as of this encounter Visit Diagnoses Not on filedocumented in this encounter Additional Health Concerns Infection Onset Date Last Indicated Resolved Time COVID19 Pending 05/08/2020 05/08/2020 05/08/2020 2 :44 PM RECORD CENTER COORDINATOR Assessment Noted Time PHQ-9 Depression Total Score: 7 08/17/19 17 9:01 AM CDT documented as of this encounter Care Teams Order Dispatcher Chief Relationship Specialty Start Date End Date Elsewhere, Pcp PCP - General Family Medicine 01/29/20 documented as of this encounter
--- OUTSIDE RECORDS SUMMARY | 2024-02-07 09:58 | XMS_ITS | Referral Summary ---
Author Organization [facility] Address [address] [place] [address] Care Team Providers Care Electrotyper Apprentice Name Role Phone Elsewhere, Pcp Primary Care Provider Unavailabl e Source Comments Patient records contain information from all sites at [facility]. For routine questions regarding patient records, call [phone] during business hours, M-F 8:00 AM - 5:00 PM Central Time. Record requests for emergency care only can be directed to [phone] at any time.[facility] Encounters Date Type Department Care Team Description 01/14/2024 Refill Division of Nephrology and Hypertension in [place], [place] [address] [place] [address] Onesimo Rodriguez M.D. Med Refill 01/05/2024 Orders Only Department of Vascular Medicine in [place], [place] [address] [place] [address] Jayjay Pak P.A.-C. Follow Up Examination Status Post Surgery (Primary Dx); Peripheral Arterial Disease (HCC) from Last 3 Months Allergies Active Allergy Reactions Criticality Noted Date Comments Gabapentin Other (see comments) Medium 08/04/2020 Dizzy, memory issue Morphine Itching,Rash Medium 02/14/2012 itchy Pregabalin Anaphylaxis High 02/16/2017 swell Lsokyvb-Ozi-Axz Reductase Inhibitors Myalgia Low 02/13/2014 Medications Medication [...] ONE CAPSULE BY MOUTH EVERY DAY FDC 01/14/2022 Active allopurinoL (ZYLOPRIM) 100 mg tablet [...] 04/21/2018 Restless Leg Syndrome 01/12/2018 Atherosclerosis Of [place] Ar teries Of Extremities With Intermittent Claudication Right Leg 08/08/2017 Hyperlipidemia 07/22/2017 Ulcer Leg Left 04/19/2017 Ulcer Toe Left 04/19/2017 Atherosclerosis Of [place] teries Of Left Leg With Ulceration Of Unspecified Site 04/19/2017 Peripheral Arterial Disease 02/16/2017 Hypertension NOS 02/16/2017 Hypertensive Chronic Kidney Disease With Stage 1 Through Stage 4 Chronic Kidney Disease, Or Unspecified Chronic Kidney Disease 09/23/2016 Overview (10/05/2016): Hypertension (HTN) And CKD Stage 1-4 Etl Analyst Developer Use Of Insulin Active 09/23/2016 Overview (10/05/2016): Residential Use Of Insulin Active Depression Major [...] How often do you attend restoration or christian serv ices? 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 [address] [place] [phone] Discharge Disposition: Home or Self Care 03/05/2024 10:40 AM CDT Ancillary Procedure Department of Cardiovascular Medicine in [place], [place] [address] [place] [phone] Jayjay Pak P.A.-C. [address] [place] [phone] 03/05/2024 11:00 AM CDT Appointment Department of Radiology, [facility], in [place], [place] [address] [place] [address] Jayjay Pak P.A.-C. [address] [place] [phone] 03/05/2024 1:45 PM CDT Appointment Department of Radiology, [facility], in [place], [place] [address] [place] [phone] Jayjay Pak P.A.-C. [address] [place] [phone] 03/05/2024 3:00 PM CDT Office Visit Department of Vascular Medicine in [place], [place] [address] [place] [phone] Jayjay Pak P.A.-C. [address] [place] [phone] Medical Devices Implanted Type Area Pest Control Technician Device Identifier Shelf Expiration Date Model / Serial / Lot Patch Vasc Bovine.08cm X 8cm - Flores [id number] Implanted:Qty: 1 on 04/04/2017 Mesh or Patch Other/Legacy - See Implant Description Synovis Description:Device Manufactu rer - Synovi. Body Location - Other. Vascular. Device Status Text - [id number]. Ocular Lens-10/29/2007 Implanted:10/28 by Nato Dougherty, JULIÁN, C.N.P., R.N. (Quantity not on file) Ocular Lens Bilateral: Eye Description:Cataract extract ion and insertion of intraocular lens 06/22/2016 09:27 - NATO DOUGHERTY APRN COSTUME DESIGNER bilateral Conversions - Default Historical Implant [...] 6mm X 29mm X 135cm - Flores [id number] Implanted:Qty: 1 on 03/04/2017 Vascular Graft [place] Description:Device Manufactu rer - [employer]. Device Status Text - [id number]. Stent Vbx [id number] - Flores [id number] Implanted:Qty: 1 on 03/04/2017 Vascular Graft Other/Legacy - See Implant Description [place] Description:Device Manufactu rer - [employer] [place] [employer] Body Location - Other. n/a. Device Status Text - [id number]. Stent Vbx [id number] - Flores [id number] Implanted:Qty: 1 on 03/04/2017 Vascular Graft Other/Legacy - See Implant Description [place] Description:Device Manufactu rer - [employer] [place] [employer] Body Location - Other. n/a. Device Status Text - [id number]. Stent Zilver Ptx 6mm X 40mm - Flores [id number] Implanted:Qty: 1 on 04/04/2017 Vascular Stent Other/Legacy - See Implant Description [employer] Description:Device Manufactu rer - [employer]. Body Location - Other. Left. Device Status Text - [id number]. Stent Zilver Ptx 6mm X 60mm - Flores [id number] Implanted:Qty: 1 on 04/04/2017 Vascular Stent Other/Legacy - See Implant Description [employer] Description:Device Manufactu rer - [employer]. Body Location - Other. Left. Device Status Text - [id number]. Stent Zilver Ptx 6mm X 80mm - [place] [id number] Implanted:Qty: 1 on 08/31/2017 Vascular Stent Right: Other/Legacy - See Implant Description [employer] / [id number] / Description:Device Manufactu rer - [employer]. Body Location - Right. Device Status Text - [id number]. Stent Zilver Ptx 6mm X 40mm - [place] [id number] Implanted:Qty: 1 on 08/31/2017 Vascular Stent Right: Other/Legacy - See Implant Description [employer] / [id number] / Description:Device Manufactu rer - [employer]. Body Location - Right. Device Status Text - [id number]. Stnt Innova Otw [id number] - [id number] Implanted:Qty: 1 on 04/18/2018 by Kemar Velásquez M.B.B.S. at [facility] Vascular Stent [employer] 05/23/2020 [id number] / / [id number] Stnt Innova Otw [id number] - [id number] Implanted:Qty: 1 on 05/11/2019 by Kemar Velásquez M.B.B.S. at [facility] Vascular Stent Left: Leg [employer] 09/05/2020 [id number] / / [id number] Procedures Procedure Name Priority Date/Time Associated Diagnosis [...] Renal Disease Acidosis Metabolic Hyperchloremic Atherosclerosis Of [place] Arteries Of Extremities With Intermittent Claudication Right [...] AM CDT 02/17/2023 11:01 AM CDT Narrative [facility] - 02/17/2023 4:02 PM CDT Specimen Information: Specimen ID: [id number] Specimen Type: Blood Specimen Collection Start Date: 02/17/2023 ??9:35 AM Specimen Received Date: 02/17/2023 11:01 AM Specimen ID: [id number] Specimen Type: Blood Specimen Collection Start Date: 02/17/2023 ??9:35 AM Specimen Received Date: 02/17/2023 ??3:35 PM Haseeb Menon Jr., D.O. LAB BLOOD AD D-ON [facility] [address] [place] [address], [facility] [place] [place] [address] AUST [facility] - [facility] [address] [place] [address] * HCV Ab Scrn w/Reflex to HCV PCR, Serum (02/17/2023 9:35 AM CDT) HCV Ab Screen, S Negative Negative 02/18/20 3:35 PM CDT [facility] Comment: Biotin has been identified by the partner marketing intern as a potential interfering substance. Higher concentrations of biotin may be found in multivitamins, hair/nail supplements, and workout supplements. If the result does not match clinical observations, repeat testing after patient refrains from the use of supplements for at least 12 hours. Blood (Blood, Venous) 02/17/2023 9:35 AM CDT 02/17/2023 2:20 PM CDT Narrative [facility] - 02/17/2023 3:35 PM CDT Specimen Information: Specimen ID: [id number] Specimen Type: Blood Specimen Collection Start Date: 02/17/2023 ??9:35 AM Specimen Received Date: 02/17/2023 ??2:20 PM Specimen ID: [id number] Specimen Type: Blood Specimen Collection Start Date: 02/17/2023 ??9:35 AM Specimen Received Date: 02/17/2023 ??2:16 PM Estiven He Jr.O. LAB MICROBIO LOGY - [place] [address], [facility] [place] [address] * (ABNORMAL) Albumin, Random, Urine (02/17/2023 9:26 AM CDT) Microalbumin 895.0 mg/L 02/17/2023 1:53 PM CDT [facility] Creatinine 42 mg/dL 02/17/2023 12:50 PM CDT [facility] Albumin/Creatinin e Ratio 2131(H) <17 mg/g 02/17/2023 1:53 PM CDT [facility] Urine (Urine, Voided) 02/17/2023 9:26 AM CDT 02/17/2023 11:00 AM CDT Haseeb Menon Jr., D.O. LAB URINE OR DERABLES Performing Organization Address [facility] Co de Phone Number [facility] [address] [place] [address], [facility] [place] [address] [place] [address] * (ABNORMAL) Hemoglobin A1c (11/25/2022 2:09 PM CDT) Hemoglobin A1c, B 6.2(H) 4.2 - 5.6 % 11/25/2022 4:40 PM CDT [facility] Comment: Hemoglobin A1c values of 5.7-6.4 percent indicate an increased risk for developing diabetes mellitus. In diabetic patients, HbA1c goals should be discussed with healthcare provider. Blood (Blood, Venous) 11/25/2022 2:09 PM CDT 11/25/2022 3:35 PM CDT Haseeb Menon Jr., D.O. LAB BLOOD AD D-ON Performing Organization Address [facility] Co de Phone Number [facility] [address] [place] [address], [facility] [place] [address] [place] [address] * (ABNORMAL) Lipid Panel (02/10/2021 8:27 AM [...] AM CDT Kemar Reyes LAB BLOOD ADD-ON [facility] [address] [place] [address], [facility] [address] [place] [address] * CT Abdomen Pelvis Angiogram with IV [...] Advance Directives For more information, please contact: [phone] * Full Code (Latest Code Status on [...] Answer Comments Full Code: Discussed Care Teams Electrotyper Apprentice Relationship Specialty Start Date End Date Elsewhere, Pcp PCP - General Family Medicine 01/29/20
== END 2024-02-07 09:56 | disposition home or self-care (01) ==
LOC: WOUND 09:55
PROVIDERS: PCP Family Medicine; Visit Provider Nurse Practitioner Family
DX: E11.621 Type 2 diabetes mellitus with foot ulcer (principal); L97.518 Non-pressure chronic ulcer of other part of right foot with other specified severity; E11.22 Type 2 diabetes mellitus with diabetic chronic kidney disease; N18.5 Chronic kidney disease, stage 5; Z96.41 Presence of insulin pump (external) (internal); Z99.2 Dependence on renal dialysis
CPT/HCPCS: 11042

== ENCOUNTER 2024-02-14 09:59 | Outpatient (CLI) | payer MEDICARE, BC, SELFPAY | END 2024-02-14 10:00 | disposition home or self-care (01) | LOC: WOUND 09:59 | PROVIDERS: PCP Family Medicine; Visit Provider Nurse Practitioner Family | DX: E11.621 Type 2 diabetes mellitus with foot ulcer (principal); L97.512 Non-pressure chronic ulcer of other part of right foot with fat layer exposed; E11.22 Type 2 diabetes mellitus with diabetic chronic kidney disease; N18.5 Chronic kidney disease, stage 5; I89.0 Lymphedema, not elsewhere classified; I73.9 Peripheral vascular disease, unspecified; Z96.41 Presence of insulin pump (external) (internal); Z99.2 Dependence on renal dialysis | CPT/HCPCS: 15275; Q4201 ==

== ENCOUNTER 2024-02-21 09:55 | Outpatient (CLI) | payer MEDICARE, BC, SELFPAY ==
--- OUTSIDE RECORDS SUMMARY | 2024-02-21 11:13 | XMS_ITS | Clinical Summary ---
Author Organization [facility] Address [address] [place] [address] Care Team Providers Care Vacuum Conditioner Operator Name Role Phone Elsewhere, Pcp Primary Care Provider Unavailabl e Source Comments Patient records contain information from all sites at [facility]. For routine questions regarding patient records, call [phone] during business hours, M-F 8:00 AM - 5:00 PM Central Time. 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 01/14/2022 Active allopurinoL (ZYLOPRIM) 100 mg tablet [...] 04/21/2018 Restless Leg Syndrome 01/12/2018 Atherosclerosis Of [place] Ar teries Of Extremities With Intermittent Claudication Right Leg 08/08/2017 Hyperlipidemia 07/22/2017 Ulcer Leg Left 04/19/2017 Ulcer Toe Left 04/19/2017 Atherosclerosis Of [place] Ar teries Of Left Leg With Ulceration Of Unspecified Site 04/19/2017 Peripheral Arterial Disease 02/16/2017 Hypertension NOS 02/16/2017 Hypertensive Chronic Kidney Disease With Stage 1 Through Stage 4 Chronic Kidney Disease, Or Unspecified Chronic Kidney Disease 09/23/2016 Overview (10/05/2016): Hypertension (HTN) And CKD Stage 1-4 Long-Term Use Of Insulin Active 09/23/2016 Overview (10/05/2016): Long-Term Use Of Insulin Active Depression Major Recurrent Moderate 06/22/2016 Overview (10/05/2016): Depression Major Recurrent Moderate Diabetes Mellitus Type 2 Wit h Other Circulatory Complication 06/22/2016 Overview (10/05/2016): DM2 Peripheral Neuropathy Uncontrolled Encounters Date Type Department Care Team Description 02/11/2024 Refill Division of Nephrology and Hypertension in [place], [place] [address] [place] [address] Haseeb Menon Jr., D.O. Med Refill 01/14/2024 Refill Division of Nephrology and Hypertension in [place], [place] [address] [place] [address] Onesimo Rodriguez M.D. Med Refill 01/05/2024 Orders Only Department of Vascular Medicine in [place], [place] [address] [place] [address] Jayjay Pak P.A.-C. Follow Up Examination Status [...] often do you attend taoism or worship serv ices? 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 [address] [place] [phone] Discharge Disposition: Home or Self Care 03/05/2024 10:40 AM CDT Ancillary Procedure Department of Cardiovascular Medicine in [place], [place] [address] [place] [address] Jayjay Pak P.A.-C. [address] [place] [phone] 03/05/2024 11:00 AM CDT Appointment Department of Radiology, [facility], in [place], [place] [address] [place] [address] Jayjay Pak P.AFei-Jennifer [address] [place] [phone] 03/05/2024 1:45 PM CDT Appointment Department of Radiology, [facility], in [place], [place] [address] [place] [address] Jayjay Pak P.A.-C. [address] [place] [address] 03/05/2024 3:00 PM CDT Office Visit Department of Vascular Medicine in [place], [place] [address] [place] [address] Jayjay Pak P.A.-Jennifer [address] [place] [address] Health Maintenance Due Date Last Done Comments CT Colonography 1950 Cologuard 1950 Depression Monitoring (PHQ-9) 1950 Hepatitis B Vaccines (1 of 3 - Risk 3-dose series) 2012 RSV vaccine - (32-3 6 weeks) or 60+ years (1 - Risk 60-74 years 1-dose series) 2012 Zoster Vaccines (1 of 2) 03/29/2012 02/02/2012 Dilated Eye Exam 08/19/2017 08/19/2016 FIT 08/24/2017 08/24/2016 Diabetic Office Visit with F oot Exam 07/22/2018 07/22/2017, 06/22/2016 Diabetes Education 05/01/2019 05/01/2018, 09/23/2016 Lung Cancer Screening 05/07/2021 05/07/2020 Fall Risk Screen (Annual) 05/16/2023 Hemoglobin A1C 05/28/2023 11/25/2022, 04/2 08/2022, 05/06/2022, Additional history exists COVID-19 Vaccine (2023-2 5 season) 2024 10/27/2021, 04/02/2021, 08/09/2020, Additional history exists Influenza Vaccine (#1) 2024 3, 03/17/2022, 03/24/2021, Additional history exists Creatinine Level [...] 02/14/2023, 11/17/2022 Medical Devices Implanted Type Area Food Prep Worker Device Identifier Shelf Expiration Date Model / Serial / Lot Patch Vasc Bovine.08cm X 8cm - Flores [id number] Implanted:Qty: 1 on 04/04/2017 Mesh or Patch Other/Legacy - See Implant Description Synovis Description:Device Manufactu rer - Synovis. Body Location - Other. Vascular. Device Status Text - [id number]. Ocular Lens-10/29/2007 Implanted:10/28 by Nato Zacarias APRN, C.N.P., R.N. (Quantity not on file) Ocular Lens Bilateral: Eye Description:Cataract extract ion and insertion of intraocular lens 06/22/2016 09:27 - MYROM, NATO J PORT TRAFFIC MANAGER CASE AIDE bilateral Conversions - Default Historical Implant Device [...] 6mm X 29mm X 135cm - Flores [id number] Implanted:Qty: 1 on 03/04/2017 Vascular Graft [place] Description:Device Manufactu Veeva - [place] Zoodig. Device Status Text - [id number]. Stent Vbx [id number] - Flores [id number] Implanted:Qty: 1 on 03/04/2017 Vascular Graft Other/Legacy - See Implant Description [place] Description:Device Manufactu rer - [employer] [place] [employer] Body Location - Other. n/a. Device Status Text - [id number]. Stent Vbx [id number] - Flores [id number] Implanted:Qty: 1 on 03/04/2017 Vascular Graft Other/Legacy - See Implant Description [place] Description:Device Manufactu rer - [employer] [place] [employer] Body Location - Other. n/a. Device Status Text - [id number]. Stent Zilver Ptx 6mm X 40mm - Flores [id number] Implanted:Qty: 1 on 04/04/2017 Vascular Stent Other/Legacy - See Implant Description [employer]. Description:Device Manufactu In [employer]. Body Location - Other. Left. Device Status Text - [id number]. Stent Zilver Ptx 6mm X 60mm - Flores [id number] Implanted:Qty: 1 on 04/04/2017 Vascular Stent Other/Legacy - See Implant Description [employer]. Description:Device Manufactu In [employer]. Body Location - Other. Left. Device Status Text - [id number]. Stent Zilver Ptx 6mm X 80mm - Flores [id number] Implanted:Qty: 1 on 08/31/2017 Vascular Stent Right: Other/Legacy - See Implant Description [employer] / [id number] / Description:Device Manufactu rer - [employer]. Body Location - Right. Device Status Text - [id number]. Stent Zilver Ptx 6mm X 40mm - Flores [id number] Implanted:Qty: 1 on 08/31/2017 Vascular Stent Right: Other/Legacy - See Implant Description [employer]. / [id number] / Description:Device Manufactu rer - [employer]. Body Location - Right. Device Status Text - [id number]. Stnt Innova Otw [id number] - [id number] Implanted:Qty: 1 on 04/18/2018 by Kemar Velásquez M.B.B.S. at [facility] Vascular Stent [employer] 05/23/2020 [id number] / / [id number] Stnt Innova Otw [id number] - [id number] Implanted:Qty: 1 on 05/11/2019 by Kemar Velásquez M.B.B.S. at [facility] Vascular Stent Left: Leg [employer] 09/05/2020 [id number] / / [id number] Procedures Procedure Name Priority Date/Time Associated Diagnosis [...] Renal Disease Acidosis Metabolic Hyperchloremic Atherosclerosis Of [place] Arteries Of Extremities With Intermittent Claudication [...] AM CDT 02/17/2023 11:01 AM CDT Narrative [facility] - 02/17/2023 4:02 PM CDT Specimen Information: Specimen ID: [id number] Specimen Type: Blood Specimen Collection Start Date: 02/17/2023 ??9:35 AM Specimen Received Date: 02/17/2023 11:01 AM Specimen ID: [id number] Specimen Type: Blood Specimen Collection Start Date: 02/17/2023 ??9:35 AM Specimen Received Date: 02/17/2023 ??3:35 PM Haseeb Menon Jr., D.O. LAB BLOOD AD D-ON [facility] [address] [place] [address], [facility] OW[facility] [place] [address] [place] [address] AUST [facility] [address] [place] [address] * HCV Ab Scrn w/Reflex to HCV PCR, Serum (02/17/2023 9:35 AM CDT) Pathologist [facility] [place] HCV Ab Screen, S Negative Negative 02/18/20 3:35 PM CDT MKTO Comment: Biotin has been identified by the research chemist as a potential interfering substance. Higher concentrations of biotin may be found in multivitamins, hair/nail supplements, and workout supplements. If the result does not match clinical observations, repeat testing after patient refrains from the use of supplements for at least 12 hours. Blood (Blood, Venous) 02/17/2023 9:35 AM CDT 02/17/2023 2:[address] [facility] - 02/17/2023 3:35 PM CDT Specimen Information: Specimen ID: [id number] Specimen Type: Blood Specimen Collection Start Date: 02/17/2023 ??9:35 AM Specimen Received Date: 02/17/2023 ??2:20 PM Specimen ID: [id number] Specimen Type: Blood Specimen Collection Start Date: 02/17/2023 ??9:35 AM Specimen Received Date: 02/17/2023 ??2:16 PM Haseeb Menon Jr., D.O. LAB MICROBIO LOGY - BLOOD ORDERABLES [facility] [address] [place] [address], [place] MKTO [facility] [place] [address] [place] [address] * (ABNORMAL) Albumin, Random, Urine (02/17/2023 9:26 AM CDT) Microalbumin 895.0 mg/L 02/17/2023 1:53 PM CDT OWAT Creatinine 42 mg/dL 02/17/2023 12:50 PM CDT OWAT Albumin/Creatinin e Ratio 2131(H) <17 mg/g 02/17/2023 1:53 PM CDT [facility] Urine (Urine, Voided) 02/17/2023 9:26 AM CDT 02/17/2023 11:00 AM CDT Haseeb Menon Jr., D.O. LAB URINE OR DERABLES [facility] [address] [place] [address], [place] [facility] [facility] [address] [place] [address] * (ABNORMAL) Hemoglobin A1c (11/25/2022 2:09 PM [...] Jr., D.O. LAB BLOOD AD D-ON [facility] [address] [place] [address], [facility] [address] [place] [address] * (ABNORMAL) Lipid Panel (02/10/2021 8:27 AM [...] AM CDT Kemar Reyes LAB BLOOD ADD-ON [facility] [address] [place] [address], [place] DTL [facility] [address] [place] [address] * CT Abdomen Pelvis Angiogram with IV [...] Advance Directives For more information, please contact: [phone] * Full Code (Latest Code Status on [...] Answer Comments Full Code: Discussed Care Teams Vacuum Conditioner Operator Relationship Specialty Start Date End Date Elsewhere, Pcp PCP - General Family Medicine 01/29/20
--- OUTSIDE RECORDS SUMMARY | 2024-02-21 11:13 | XMS_ITS | Continuity of Care Document ---
Author Organization [facility] Address [address] [place] [address] Phone Care Team Providers Care Dog Breeder Name Role Phone Dot Warner Unavailable Unavailable [...] on Encounter [facility], [address], [place], [place], [id number] , [place] tel: [phone] [facility] No Information 3 Kindra Chris. [facility], [address] [place] [address] [address], [place], [address], [place]. tel: [phone] Office/Outpa tient Visit,Est, Mod [facility], [address], [place], [place], [id number] , [place] tel: [phone] [facility] - [facility] [place] Spinal stenosis, lumbar region with neurogenic claudication 3 Camille Bob. [facility], [address] [place] [address], [address], [place], [address], [place]. tel: [phone] Referring Provider: Lisbeth Thomas, [facility] [address], [address], [place], [address]. [phone] OFFICE/OUTPA TIENT VISIT EST Phone [facility], [address], [place], [place], [id number] , [place] [phone] [facility] [place] No Information 3 Obrien Lisbeth. [facility], [address], [address], [place], [address], [place]. [phone] Referring Provider: Lisbeth Thomas, [facility] [address], [address], [place], [address]. [phone] Office/Outpa tient Visit,Est, Mod [facility], [address], [place], [place], [id number] , [place] [phone] [facility] Low back pain, unspecifiedOther specified soft tissue disorders 3 Obrien Lisbeth. [facility], [address], [address], [place], [address], [place]. [phone] Referring Provider: Lisbeth Thomas, [facility] [address], [address], [place], [address]. [phone] Followup Hospital Care, Moderate [facility], [address], [place], [place], [id number] , [place] [phone] [facility] No Information 2 Dhaval Velez. [facility], [address], [address], [place], [address], [place]. [phone] Referring Provider: Rudy Riddle, [facility] And [address], [address]. tel:[phone] Family History Family Member Type Diagnosis Age At Onset No Information Payers Payer name Insurance type Covered green party ID Authorjaimealivia durant([place]) [place] [id number] Medicare [facility] [id number] 1 Social History Type Description Quantity Date [...]
--- OUTSIDE RECORDS SUMMARY | 2024-02-21 11:13 | XMS_ITS | Continuity of Care Document ---
Author Organization [facility] Address [address] [address] [place] [address] Phone Care Team Providers Care Loan Processing Supervisor Name Role Phone Yao Smith MD Unavailable [...] Diagnoses Date Provider Providers Copied on Encounter [facility], [address] [address], [place], [place], [id number], tel:[phone] [facility] No Information 3 Emiliano Samayoa. [address] [place] [address], [id number] , [place]. tel:[phone] [facility], [address] [address], [place], [place], [id number], [place] tel:[phone] [facility] Anemia, unspecified type 3 Alexi Corona. [address] [place] [address], [id number] , [place]. tel:[phone] Referring Provider: Referral Self, USE FOR SELF REFERRALS. Init Hosp-da E&m Mod Severity [facility], [address] [address], [place], [place], [id number], tel:[phone] [facility] No Information 3 Roshni Grant. [address] [facility], [facility] [address], [place], [id number] , [place]. [phone] Referring Provider: Chas Olmstead MD R, [address] [facility] [place], [address]. [phone] [facility], [address] [address], [place], [place], [id number], [place] tel:[phone] [facility] No Information 2 Brett Gaytan. [address] [facility], [facility] [address], [place], [id number] , [place]. tel:[phone] Ref[place]: [place], [address] [place] [address], [address]. [phone] Subsqt Hosp-da E&m Minr Compl [facility], [address] [address], [place], [place], [id number], [place] tel:[phone] [facility] No Information [address] Rangel[address] [place] [address], [facility] [address], [place], [id number] , [place]. tel:[phone] Referring Provider: Claire Escobra, [facility] [address], [address]. [phone] Init Hosp-da E&m Mod Severity [facility], [address] [address], [place], [place], [id number], [place] tel:[phone] [facility] No Information 2 Dayo Shepard. [address] [place] [address], [facility] [address], [place], [id number] , [place]. tel:[phone] Referring Provider: Devyn Aguilar, [address] [place] [address], [place], [address]. [phone] Family History Family Member Type Diagnosis Age At Onset No Information Immunizations Vaccine Date Status Comments influenza, high-dose seasona l, quadrivalent, .7mL dose, preservative free administered Note: [facility] bi-direct ional [...] Registry Payers Payer name Insurance type Covered green party ID Authoriza tion(s) No Information Social History [...]
--- OUTSIDE RECORDS SUMMARY | 2024-02-21 11:13 | XMS_ITS | Clinical Summary ---
Author Organization [facility] Address [place], [place] [address] Care Team Providers Care Shipper Name Role Phone Casa Lucia MD Unavailable Unavailable Rudy Riddle MD Unavailable [phone] Rudy Riddle MD Primary Care Provider + Allergies Active Allergy Reactions Criticality Noted Date Comments Gabapentin Other - Describe In Comment Field Medium 08/04/2020 Dizzy, memory issue Dizzy, memory issue Morphine Itching 02/04/2010 After 3 days of use Pregabalin Anaphylaxis,Itching High 02/16/2017 swetesfaye jane Yoiifkt-Fwt-Kjm Reductase Inhibitors Myalgia 02/13/2014 Medications Medication Sig [...] Comments Blood Pressure 162/87 07/21/2022 9:21 PM MUSEUM TECHNICIAN Pulse 100 07/21/2022 9:21 PM MUSEUM TECHNICIAN Temperature 37.1 ??C (98.8 ??F) 07/21/2022 8:51 PM CS T Respiratory Rate 18 07/21/2022 8:51 PM MUSEUM TECHNICIAN Oxygen Saturation 96% 07/21/2022 9:21 PM MUSEUM TECHNICIAN Inhaled Oxygen Concentration - - Weight 83.9 kg (185 lb) 07/21/2022 5:35 PM MUSEUM TECHNICIAN Height 175.3 cm (5' 9) 07/21/2022 5:35 PM MUSEUM TECHNICIAN Body Mass Index 27.32 07/21/2022 5:35 PM MUSEUM TECHNICIAN Plan of Treatment Health Maintenance Due [...] ([facility] Tdap Completed 08/16/2016 Pneumococcal series for age 65+ Completed 04/24/2018, 04/11/2017, 02/14/2012, Additional history exists Goals Goal Patient Goal Type Associated Problems Recent Progress Patient-Stated? Author BLOOD PRESSURE - MAINTAINS BP less than 140/90 Blood Pressure Rudy Orozco MD Procedures Procedure Name Priority Date/Time Associated Diagnosis Comments COLONOSCOPY 05/12/2022 8:51 AM MUSEUM TECHNICIAN LIPID PANEL W REFLEX MEASURED LDL Routine 02/16/2016 8:59 AM CDT Hyperlipidemia, unspecified hyperlipidemia type from Last 3 Months or Most Recently Relevant to Health Maintenance Results * COLONOSCOPY (05/12/2022 8:51 AM MUSEUM TECHNICIAN) 05/12/2022 8:51 AM MUSEUM TECHNICIAN Narrative Transcriptions Lukas West MD - 05/12/2022 9:03 AM [facility] Patient Name: Onesimo Walton Procedure Date: 05/12/2022 Gender: Male Date of : 1950 Admit Type: Inpatient Procedure: Colonoscopy Proceduralist: Lukas West MD [facility] Indications/Pre-Op Diagnosis: Anemia. Bacteremia Medications: Monitored Anesthesia Care Procedure Description: The patient had risks, benefits and alternatives explained to andgave informed consent. The patient had a stable cardiopulmonary status and judged an adequate candidate for conscious sedation. The [id number] endoscope was passed through the anus and [...] - 199 mg/dL 02/16/2016 11:02 AM CDT [facility] TRIGLYCERIDES 232(H) <150 mg/dL 02/16/2016 11:02 AM CDT [facility] HDL CHOLESTEROL 31(L) >40 mg/dL 02/16/2016 11:02 AM CDT [facility] NON-HDL CHOLESTEROL 147(H) <145 mg/dl 02/16/2016 11:02 AM CDT [facility] CHOL/HDL RATIO 5.74(H) <4.50 02/16/2016 11:02 AM CDT [facility] LDL CHOLESTEROL 101 <=130 mg/dL 02/16/2016 11:02 AM CDT [facility] PATIENT STATUS FASTING 02/16/2016 11:[address] [facility] Blood BLOOD SPECIMEN / Unknown Venipuncture / Unknown 02/16/2016 8:59 AM CDT 02/16/2016 8:59 AM CDT Rudy Riddle MD CHEMISTRY [facility] [address] [place], [place] [id number] [place] [address] [address] [place] [address], [place] [phone] from Last 3 Months or Most Recently [...] Preferences, Provider to review later Care Teams Shipper Relationship Specialty Start Date End Date Rudy Riddle MD [address] [place] [address] PCP - General Family Practice 05/25/22 [place] [address] [address] [facility] [address] [place] [address] Ophthalmology Ophthalmology Surgery 12/22/11 Rudy Riddle MD [address] [place] [address] Family Practice 05/07/22
--- OUTSIDE RECORDS SUMMARY | 2024-02-21 11:14 | XMS_ITS | Encounter Summary ---
Author Organization [facility] Address [address] [place] [address] Care Team Providers Care Key Bed Installer Name Role Phone Elsewhere, Pcp Primary Care Provider Unavailabl e Reason for Visit * Reason Comments Med Refill Encounter Details Date Type Department Care Team (Late st Contact Info) Description 01/14/2024 Refill Division of Nephrology and Hypertension in [place], [place] [address] [place] [address] Onesimo Rodriguez M.D. Med Refill Social History [...] How often do you attend latter-day or evangelical serv ices? 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 - 01/19/2024 12:51 PM CDT He is on PD via [employer], I care for him and he does not take these any longer. RCA documented in this encounter Plan of Treatment Upcoming Encounters Date Type Department Care Team (Latest Contact Info) Description 03/05/2024 7:30 AM CDT Appointment Department of Vascular Medicine in [place], [place] [address] [place] [phone] Jayjay Pak P.A.-C. [address] [place] [address] Discharge Disposition: Home or Self Care 03/05/2024 10:40 AM CDT Ancillary Procedure Department of Cardiovascular Medicine in [place], [place] [address] [place] [address] Jayjay Pak P.A.-C. [address] [place] [phone] 03/05/2024 11:00 AM CDT Appointment Department of Radiology, [facility], in [place], [place] [address] [place] [address] Jayjay Pak P.A.-C. [address] [place] [phone] 03/05/2024 1:45 PM CDT Appointment Department of Radiology, [facility], in [place], [place] [address] [place] [address] Jayjay Pak P.A.-C. [address] [place] [phone] 03/05/2024 3:00 PM CDT Office Visit Department of Vascular Medicine in [place], [place] [address] [place] [address] Jayjay Pak P.A.-C. [address] [place] [phone] documented as of this encounter Visit Diagnoses Not on filedocumented in this encounter Additional Health Concerns Assessment Noted Time PHQ-9 Depression Total Score: 3 01/04/20 18 10:38 AM CDT documented as of this encounter Care Teams Key Bed Installer Relationship Specialty Start Date End Date Elsewhere, Pcp PCP - General Family Medicine 01/29/20 documented as of this encounter
--- OUTSIDE RECORDS SUMMARY | 2024-02-21 11:14 | XMS_ITS ---
Author Organization [facility] Address [address] [place] [address] Care Team Providers Care Zoogler Name Role Phone Unavailable Unavailable Unavailable Surgery Details Not on file Complications Check Surgery Details section. Procedure Estimated Blood Loss Check Surgery Details section. Procedure Findings Check Surgery Details section. Procedure Specimens Taken Check Surgery Details section.
--- OUTSIDE RECORDS SUMMARY | 2024-02-21 11:14 | XMS_ITS | Referral Summary ---
Author Organization [facility] Address [address] [place] [address] Care Team Providers Care Surgery Aide Name Role Phone Elsewhere, Pcp Primary Care Provider Unavailabl e Source Comments Patient records contain information from all sites at [facility]. For routine questions regarding patient records, call [phone] during business hours, M-F 8:00 AM - 5:00 PM Central Time. Record requests for emergency care only can be directed to [phone] at any time.[facility] Encounters Date Type Department Care Team Description 02/11/2024 Refill Division of Nephrology and Hypertension in [place], [place] [address] [place] [address] Haseeb Menon Jr., D.O. Med Refill 01/14/2024 Refill Division of Nephrology and Hypertension in [place], [place] [address] [place] [address] Onesimo Rodriguez M.D. Med Refill 01/05/2024 Orders Only Department of Vascular Medicine in [place], [place] [address] [place] [address] Jayjay Pak P.A.-C. 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 01/14/2022 Active allopurinoL (ZYLOPRIM) 100 mg tablet [...] 04/21/2018 Restless Leg Syndrome 01/12/2018 Atherosclerosis Of [place] Ar teries Of Extremities With Intermittent Claudication Right Leg 08/08/2017 Hyperlipidemia 07/22/2017 Ulcer Leg Left 04/19/2017 Ulcer Toe Left 04/19/2017 Atherosclerosis Of [place] Ar teries Of Left Leg With Ulceration Of Unspecified Site 04/19/2017 Peripheral Arterial Disease 02/16/2017 Hypertension NOS 02/16/2017 Hypertensive Chronic Kidney Disease With Stage 1 Through Stage 4 Chronic Kidney Disease, Or Unspecified Chronic Kidney Disease 09/23/2016 Overview (10/05/2016): Hypertension (HTN) And CKD Stage 1-4 Mcfp Use Of Insulin Active 09/23/2016 Overview (10/05/2016): [...] How often do you attend advent or hinduism serv ices? Never 03/24/2021 Do [...] Answer Date Recorded PHQ-2 Score 0 10/20/2018 [facility] [place] [facility] Occupat ional Health - Occupational Stress [...] living situation today? I have a [facility] place to live 10/26/2022 Education Answer Date Recorded What is the highest level of school you have completed or the highest degree you have received? 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 Gender Identity Male 08/31/2019 2:40 PM [...] CDT Appointment Department of Vascular Medicine in [place], [place] [address] [place] [phone] Jayjay Pak P.A.-Jennifer [address] [place] [phone] Discharge Disposition: Home or Self Care 03/05/2024 10:40 AM CDT Ancillary Procedure Department of Cardiovascular Medicine in [place], [place] [address] [place] [phone] Jayjay Pak P.A.-Jennifer [address] [place] [phone] 03/05/2024 11:00 AM CDT Appointment Department of Radiology, [facility], in [place], [place] [address] [place] [address] Jayjay Pak P.A.-Jennifer [address] [place] [phone] 03/05/2024 1:45 PM CDT Appointment Department of Radiology, [facility], in [place], [place] [address] [place] [address] Jayjay Pak P.A.-Jennifer [address] [place] [phone] 03/05/2024 3:00 PM CDT Office Visit Department of Vascular Medicine in [place], [place] [address] [place] [address] Jayjay Pak P.A.-C. [address] [place] [phone] Medical Devices Implanted Type Area Cane Feeder Device Identifier Shelf Expiration Date Model / Serial / Lot Patch Vasc Bovine.08cm X 8cm - Flores [id number] Implanted:Qty: 1 on 04/04/2017 Mesh or Patch Other/Legacy - See Implant Description Synovis Description:Device Manufactu rer - Synovis. Body Location - Other. Vascular. Device Status Text - [id number]. Ocular Lens-10/29/2007 Implanted:10/28 by Nato Dougherty, JULIÁN, C.N.P., R.N. 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 Device Status Text - [id number]. Stent Vbx [id number] - Flores [id number] Implanted:Qty: 1 on 03/04/2017 Vascular Graft Other/Legacy - See Implant Description [place] Description:Device Manufactu rer - [employer] [place] [employer] Body Location - Other. n/a. Device Status Text - [id number]. Stent Vbx [id number] - Flores [id number] Implanted:Qty: 1 on 03/04/2017 Vascular Graft Other/Legacy - See Implant Description [place] Description:Device Manufactu rer - [employer] [place] [employer] Body Location - Other. n/a. Device Status Text - [id number]. Stent Zilver Ptx 6mm X 40mm - Flores [id number] Implanted:Qty: 1 on 04/04/2017 Vascular Stent Other/Legacy - See Implant Description [employer] Description:Device Manufactu rer - [employer]. Body Location - Other. Left. Device Status Text - [id number]. Stent Zilver Ptx 6mm X 60mm - Flores [id number] Implanted:Qty: 1 on 04/04/2017 Vascular Stent Other/Legacy - See Implant Description [employer] Description:Device Manufactu rer - [employer]. Body Location - Other. Left. Device Status Text - [id number]. Stent Zilver Ptx 6mm X 80mm - Flores [id number] Implanted:Qty: 1 on 08/31/2017 Vascular Stent Right: Other/Legacy - See Implant Description [employer] / [id number] / Description:Device Manufactu rer - [employer]. Body Location - Right. Device Status Text - [id number]. Stent Zilver Ptx 6mm X 40mm - Flores [id number] Implanted:Qty: 1 on 08/31/2017 Vascular Stent Right: Other/Legacy - See Implant Description [employer] / [id number] / Description:Device Manufactu rer - [employer]. Body Location - Right. Device Status Text - [id number]. Stnt Innova Otw [id number] - [id number] Implanted:Qty: 1 on 04/18/2018 by Kemar Velásquez M.B.B.S. at [facility] Vascular Stent [employer] 05/23/2020 [id number] / / [id number] Stnt Innova Otw [id number] - [id number] Implanted:Qty: 1 on 05/11/2019 by Kemar Velásquez M.B.B.S. at [facility] Vascular Stent Left: Leg [employer] 09/05/2020 [id number] / / [id number] Procedures Procedure Name Priority Date/Time Associated Diagnosis [...] Renal Disease Acidosis Metabolic Hyperchloremic Atherosclerosis Of [place] Arteries Of Extremities With Intermittent Claudication Right [...] CDT 02/17/2023 11:[address] [facility] - 02/17/2023 4:02 PM CDT Specimen Information: Specimen ID: [id number] Specimen Type: Blood Specimen Collection Start Date: 02/17/2023 ??9:35 AM Specimen Received Date: 02/17/2023 11:01 AM Specimen ID: [id number] Specimen Type: Blood Specimen Collection Start Date: 02/17/2023 ??9:35 AM Specimen Received Date: 02/17/2023 ??3:35 PM Estiven He Jr.O. LAB BLOOD AD D-ON [facility] [address] [place] [address], [facility] [place] [address] [place] [address] AUST [facility] [address] [place] [address] * HCV Ab Scrn w/Reflex to HCV PCR, Serum (02/17/2023 9:35 AM CDT) HCV Ab Screen, S Negative Negative 02/18/20 3:35 PM CDT MKTO Comment: Biotin has been identified by the material damage adjuster as a potential interfering substance. Higher concentrations [...] 3:35 PM CDT Specimen Information: Specimen ID: [id number] Specimen Type: Blood Specimen Collection Start Date: 02/17/2023 ??9:35 AM Specimen Received Date: 02/17/2023 ??2:20 PM Specimen ID: [id number] Specimen Type: Blood Specimen Collection Start Date: 02/17/2023 ??9:35 AM Specimen Received Date: 02/17/2023 ??2:16 PM Haseeb Menon Jr. DFeiO. LAB MICROBIO LOGY - BLOOD ORDERABLES [facility] [address] [place] [address], [facility] [place] [address] [place] [address] * (ABNORMAL) Albumin, Random, Urine (02/17/2023 9:26 AM CDT) Microalbumin 895.0 mg/L 02/17/2023 1:53 PM CDT OWAT Creatinine 42 mg/dL 02/17/2023 12:50 PM CDT [facility] Albumin/Creatinin e Ratio 2131(H) <17 mg/g 02/17/2023 1:53 PM CDT [facility] Urine (Urine, Voided) 02/17/2023 9:26 AM CDT 02/17/2023 11:00 AM CDT Haseeb Menon Jr., D.O. LAB URINE OR DERABLES Performing Organization Address [facility] Co de Phone Number [facility] [address] [place] [address], [facility] [place] [address] [place] [address] * (ABNORMAL) Hemoglobin A1c (11/25/2022 2:09 PM [...] BLOOD AD D-ON Performing Organization Address [facility] Co de Phone Number [facility] [address] [place] [address], [facility] [place] [address] [place] [address] * (ABNORMAL) Lipid Panel (02/10/2021 8:27 AM [...] CDT Kemar Reyes LAB BLOOD ADD-ON [facility] [address] [place] [address], [facility] [address] [place] [address] * CT Abdomen Pelvis Angiogram with IV [...] Advance Directives For more information, please contact: [phone] * Full Code (Latest Code Status on [...] Answer Comments Full Code: Discussed Care Teams Surgery Aide Relationship Specialty Start Date End Date Elsewhere, Pcp PCP - General Family Medicine 01/29/20
--- OUTSIDE RECORDS SUMMARY | 2024-02-21 11:14 | XMS_ITS | Encounter Summary ---
Author Organization [facility] Address [address] [place] [address] Care Team Providers Care Crane Follower Name Role Phone Elsewhere, Pcp Primary Care Provider Unavailabl e Reason for Referral * Outpatient (Routine) - Authorized Specialty Diagnoses / Procedures Referred By Robi t Referred To Contact Diagnoses Follow Up Examination Status Post Surgery Peripheral Arterial Disease (HCC) Procedures US Lower Extremity Artery Graft Bilateral Jayjay Pak P.A.-C. [address] [place] [address] [facility] Referral ID Status Reason Start Date Expiration Date V isits Requested Visits Authorized [id number] Authorized 01/05/2024 01/04/2025 1 1 * Outpatient (Routine) - Authorized Specialty Diagnoses / Procedures Referred By Robi t Referred To Contact Diagnoses Follow Up Examination Status Post Surgery Peripheral Arterial Disease (HCC) Procedures US Aorta Iliac Arteries Bilateral with Doppler Jayjay Pak P.A.-C. [address] [place] [phone] [facility] Referral ID Status Reason Start Date Expiration Date V isits Requested Visits Authorized [id number] Authorized 01/05/2024 01/04/2025 1 1 * Outpatient (Routine) - Authorized Specialty Diagnoses / Procedures Referred By Contac t Referred To Contact Diagnoses Follow Up Examination Status Post Surgery Peripheral Arterial Disease (HCC) Procedures ECG 12 Lead Jayjay Pak P.A.-C. [address] [place] [phone] [facility] Referral ID Status Reason Start Date Expiration Date V isits Requested Visits Authorized [id number] Authorized 01/05/2024 01/04/2025 1 1 * Outpatient (Routine) - Authorized Specialty Diagnoses / Procedures Referred By Robi hong Referred To Contact Vascular Medicine Jayjay Pak P.A.-C. [address] [place] [phone] [facility] Referral ID Status Reason Start Date Expiration Date V isits Requested Visits Authorized [id number] Authorized 01/05/2024 07/06/2025 1 1 * Outpatient (Routine) - Authorized Specialty Diagnoses / Procedures Referred By Robi hong Referred To Contact Diagnoses Follow Up Examination Status Post Surgery Peripheral Arterial Disease (HCC) Procedures Lower Extremity Arterial (MIMI) - Exercise (Claudication) Jayajy Pak P.A.-C. [address] [place] [phone] [facility] Referral ID Status Reason Start Date Expiration Date V isits Requested Visits Authorized [id number] Authorized 01/05/2024 01/04/2025 1 1 Encounter Details Date Type Department Care Team (Late st Contact Info) Description 01/05/2024 Orders Only Department of Vascular Medicine in [place], [place] [address] [place] [phone] Jayjay Pak P.A.-C. [address] [place] [phone] Follow Up Examination Status Post Surgery (Primary [...] How often do you attend orthodox or judaism serv ices? 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 [address] [place] [phone] Discharge Disposition: Home or Self Care 03/05/2024 10:40 AM CDT Ancillary Procedure Department of Cardiovascular Medicine in [place], [place] [address] [place] [phone] Jayjay Pak P.A.-C. [address] [place] [phone] 03/05/2024 11:00 AM CDT Appointment Department of Radiology, [facility], in [place], [place] [address] [place] [address] Jayjay Pak P.A.-C. [address] [place] [phone] 03/05/2024 1:45 PM CDT Appointment Department of Radiology, [facility], in [place], [place] [address] [place] [address] Jayjay Pak P.A.-C. [address] [place] [phone] 03/05/2024 3:00 PM CDT Office Visit Department of Vascular Medicine in [place], [place] [address] [place] [phone] Jayjay Pak P.A.-C. [address] [place] [phone] Scheduled Orders Name Type Priority Associated Diagnoses [...] documented as of this encounter Care Teams Crane Follower Relationship Specialty Start Date End Date Elsewhere, Pcp PCP - General Family Medicine 01/29/20 documented as of this encounter
--- OUTSIDE RECORDS SUMMARY | 2024-02-21 11:14 | XMS_ITS | Encounter Summary ---
Author Organization [facility] Address [address] [place] [address] Care Team Providers Care Senior Center Manager Name Role Phone Elsewhere, Pcp Primary Care Provider Unavailabl e Reason for Visit * Reason Comments Med Refill Encounter Details Date Type Department Care Team (Late st Contact Info) Description 02/11/2024 Refill Division of Nephrology and Hypertension in [place], [place] [address] [place] [address] Haseeb Menon Jr., D.O. [address] [place] [address] Med Refill Social History Tobacco Use Types [...] How often do you attend congregational or anglican serv ices? 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 - 02/20/2024 8:51 AM CDT discontinued documented in this encounter Plan of Treatment Upcoming Encounters Date Type Department Care Team (Latest Contact Info) Description 03/05/2024 7:30 AM CDT Appointment Department of Vascular Medicine in [place], [place] [address] [place] [address] Jayjay Pak P.A.-C. [address] [place] [address] Discharge Disposition: Home or Self Care 03/05/2024 10:40 AM CDT Ancillary Procedure Department of Cardiovascular Medicine in [place], [place] [address] [place] [address] Jayjay Pak P.A.-C. [address] [place] [phone] 03/05/2024 11:00 AM CDT Appointment Department of Radiology, [facility], in [place], [place] [address] [place] [address] Jayjay Pak P.A.-C. [address] [place] [phone] 03/05/2024 1:45 PM CDT Appointment Department of Radiology, [facility], in [place], [place] [address] [place] [phone] Jayjay Pak P.A.-C. [address] [place] [phone] 03/05/2024 3:00 PM CDT Office Visit Department of Vascular Medicine in [place], [place] [address] [place] [phone] Jayjay Pak P.A.-C. [address] [place] [phone] documented as of this encounter Visit Diagnoses Not on filedocumented in this encounter Additional Health Concerns Assessment Noted Time PHQ-9 Depression Total Score: 3 01/04/20 18 10:38 AM CDT documented as of this encounter Care Teams Senior Center Manager Relationship Specialty Start Date End Date Elsewhere, Pcp PCP - General Family Medicine 01/29/20 documented as of this encounter
--- OUTSIDE RECORDS SUMMARY | 2024-02-21 11:14 | XMS_ITS | Encounter Summary ---
Author Organization [facility] Address [address] [place] [address] Care Team Providers Care Core Piler Name Role Phone Elsewhere, Pcp Primary Care Provider Unavailabl e Encounter Details Date Type Department Care Team (Late st Contact Info) Description 08/19/2016 Historical Ophthalmology [facility] Chalo Holland Jr., M.D. 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 [address] [place] [phone] Discharge Disposition: Home or Self Care 03/05/2024 10:40 AM CDT Ancillary Procedure Department of Cardiovascular Medicine in [place], [place] [address] [place] [phone] Jayjay Pak P.A.-C. [address] [place] [phone] 03/05/2024 11:00 AM CDT Appointment Department of Radiology, [facility], in [place], [place] [address] [place] [phone] Jayjay Pak P.A.-C. [address] [place] [phone] 03/05/2024 1:45 PM CDT Appointment Department of Radiology, [facility], in [place], [place] [address] [place] [phone] Jayjay Pak P.A.-C. [address] [place] [phone] 03/05/2024 3:00 PM CDT Office Visit Department of Vascular Medicine in [place], [place] [address] [place] [phone] Jayjay Pak P.A.-C. [address] [place] [phone] documented as of this encounter Visit Diagnoses Not on filedocumented in this encounter Additional Health Concerns Infection Onset Date Last Indicated Resolved Time COVID19 Pending 05/08/2020 05/08/2020 05/08/2020 2 :44 PM PET RESORT CONCIERGE Assessment Noted Time PHQ-9 Depression Total Score: 7 08/17/19 17 9:01 AM CDT documented as of this encounter Care Teams Core Piler Relationship Specialty Start Date End Date Elsewhere, Pcp PCP - General Family Medicine 01/29/20 documented as of this encounter
== END 2024-02-21 09:56 | disposition home or self-care (01) ==
LOC: WOUND 09:56
PROVIDERS: PCP Family Medicine; Visit Provider Nurse Practitioner Family
DX: E11.621 Type 2 diabetes mellitus with foot ulcer (principal); L97.518 Non-pressure chronic ulcer of other part of right foot with other specified severity; I89.0 Lymphedema, not elsewhere classified; E11.22 Type 2 diabetes mellitus with diabetic chronic kidney disease; N18.5 Chronic kidney disease, stage 5; Z96.41 Presence of insulin pump (external) (internal); Z99.2 Dependence on renal dialysis
CPT/HCPCS: 11042

== ENCOUNTER 2024-02-28 10:09 | Outpatient (CLI) | payer MEDICARE, BC, SELFPAY ==
--- OUTSIDE RECORDS SUMMARY | 2024-02-28 10:12 | XMS_ITS | Continuity of Care Document ---
Author Organization [facility] Address [address] [place] [address] Phone Care Team Providers Care Channel Account Manager Name Role Phone Dot Warner Unavailable Unavailable Medications Medication Instructions Dosage Effective Dates (start - stop) Status Comments AMPICILLIN-SULBACTAM (unknown strength) Not Available - Active MINOCYCLINE HCL (unknown strength) Not Available - Active Procedures Procedure Date Office/Outpatient Visit,Est, Mod 2022 OFFICE/OUTPATIENT VISIT EST Phone Office/Outpatient Visit,Est, Mod 2022 Followup Hospital Care, [facility] 2021 Advance Directives Directive Yes / No Effective Date File Name No Information Encounters Encounter Description Practice Location Reason(s) For Visit Diagnoses Date Provider Providers Copied on Encounter [facility], [address], [place], [place], [id number] , [place] tel: [phone] [facility] - [facility] No Information 3 Kindra Chris. [facility] [place], [address] [place] [address] [address], [place], [address], [place]. tel: [phone] Office/Outpa tient Visit,Est, Mod [facility], [address], [place], [place], [id number] , [place] tel: [phone] [facility] - [facility] [place] Spinal stenosis, lumbar region with neurogenic claudication 3 Camille Bob. [facility] [place], [address] [place] [address], [address], [place], [address], [place]. tel: [phone] Referring Provider: Lisbeth Thomas, [facility] [address], [address], [place], [address]. [phone] OFFICE/OUTPA TIENT VISIT EST Phone [facility], [address], [place], [place], [id number] , [place] [phone] [facility] [place] No Information 3 Obrien Lisbeth. [facility], [address], [address], [place], [address], [place]. [phone] Referring Provider: Lisbeth Thomas, [facility] [address], [address], [place], [address]. [phone] Office/Outpa tient Visit,Est, Mod [facility], [address], [place], [place], [id number] , [place] [phone] [facility] Low back pain, unspecifiedOther specified soft tissue disorders 3 Obrien Lisbeth. [facility] [place], [address], [address], [place], [address], [place]. [phone] Referring Provider: Lisbeth Thomas, [facility] [place] [address], [address], [place], [address]. [phone] Followup Hospital Care, Moderate [facility], [address], [place], [place], [id number] , [place] [phone] [facility] No Information 2 Dhaval Velez. [facility], [address], [address], [place], [address], [place]. [phone] Referring Provider: Rudy Riddle, [facility] [address], [address]. tel:[phone] Family History Family Member Type Diagnosis Age At Onset No Information Payers Payer name Insurance type Covered alliance party ID Authorjaimealivia durant([place]) [place] [id number] Medicare [facility] [id number] 1 Social History Type Description Quantity Date [...]
--- OUTSIDE RECORDS SUMMARY | 2024-02-28 10:13 | XMS_ITS | Clinical Summary ---
Author Organization [facility] Address [address] [place] [address] Care Team Providers Care Snipper Name Role Phone Elsewhere, Pcp Primary Care Provider Unavailabl e Source Comments Patient records contain information from all sites at [facility]. For routine questions regarding patient records, call [phone] during business hours, M-F 8:00 AM - 5:00 PM Central Time. Record requests for emergency care only can be directed to [phone] at any time.[facility] Allergies Active Allergy Reactions Criticality Noted Date Comments Gabapentin Other (see comments) Medium 08/04/2020 Dizzy, memory issue Morphine Itching,Rash Medium 02/14/2012 itchy Pregabalin Anaphylaxis High 02/16/2017 swell Gurwknv-Lgq-Axb Reductase Inhibitors Myalgia Low 02/13/2014 Medications DULoxetine (CYMBALTA) [address] capsule Take 60 mg by mouth at bedtime. 08/17/19 17 Active nortriptyline (PAMELOR) 50 mg capsule Take 100 mg by mouth at bedtime. 5 12/07/19 18 Active omeprazole (PriLOSEC) [address] capsule Take 40 mg by mouth every evening. 09/25/19 16 Active ferrous sulfate 325 mg (65 mg iron) tablet Take 27 mg by mouth daily. States taking 27 mg daily Active atorvastatin (LIPITOR) 20 mg tablet Take 1 tablet (20 mg total) by mouth at bedtime. 90 tablet 3 07/25/19 20 Active pramipexole (MIRAPEX) 0.5 mg tablet Take 0.5 mg by mouth at bedtime. Active carvediloL (COREG) 25 mg tablet Take 2 tablets (50 mg total) by mouth 2 (two) times a day with meals. 03/25/20 21 Active acetaminophen (TYLENOL) 500 mg tablet Take 2 tablets (1,000 mg total) by mouth every 8 (eight) hours as needed (neuropathy). 03/25/20 21 Active doxepin (SINEquan) 10 mg capsule TAKE ONE CAPSULE BY MOUTH EVERY DAY AT BEDTIME 90 capsule 3 05/28/19 22 Active minocycline (MINOCIN,DYNACI N) 100 mg capsule TAKE ONE CAPSULE BY MOUTH TWICE A DAY FOR 10 DAYS AND THEN TAKE ONE CAPSULE BY MOUTH EVERY DAY CREW BOSS 01/15/20 22 Active allopurinoL (ZYLOPRIM) 100 mg tablet Take 100 mg by mouth daily. Active aspirin [address] tablet Take 81 mg by mouth daily. Active ergocalciferol (Vitamin D2) 50,000 Unit capsule Take 50,000 Units by mouth once a week. Active oxyCODONE (ROXICODONE) 5 mg immediate release tabletIndicatio ns:Acute Pain Exception Take 1 tablet (5 mg total) by mouth every 6 (six) hours as needed for severe pain or score 7-10 of 10 Indication: Acute Pain Exception. for pain 6 tablet 02/17/20 23 Active blood-glucose sensor device 11/26/19 22 Active UNABLE TO FIND Insulin pump Ac tive sennosides-docu sate sodium (SENOKOT-S) 8.6-50 mg per tablet Take 1 tablet by mouth 2 (two) times a day. 180 tablet 3 03/21/20 23 024 Active furosemide (LASIX) 80 mg tablet Take 2 tablets (160 mg total) by mouth 2 (two) times a day. 360 tablet 3 04/26/20 23 Active calcium acetate,phospha t bind, (PHOSLO) 667 mg (169 mg calcium) capsule Take 2 capsules (1,334 mg total) by mouth 3 (three) times a day with meals. 540 capsule 3 06/17/19 24 025 Active lisinopriL (PRINIVIL,ZESTR IL) 40 mg tablet Take 0.5 tablets (20 mg total) by mouth daily. Patient reports it was decreased by primary physician about 04/2020 per patient report. 45 tablet 3 09/13/19 24 025 Active sodium bicarbonate 650 mg tabletIndicatio ns:Hypertension And Chronic Kidney Disease Stage 4 DISSOLVE AND TAKE ONE TABLET BY MOUTH TWICE A DAY 180 tablet 3 02/02/20 23 024 calcium citrate (CALCITRATE) 950 mg (200 mg calcium) tablet TAKE FOUR TABLETS BY MOUTH AT BEDTIME 300 tablet 3 03/14/20 23 024 Discontinued Active Problems Patient Care Coordination No te [...] 04/21/2018 Restless Leg Syndrome 01/12/2018 Atherosclerosis Of [place] Ar teries Of Extremities With Intermittent Claudication Right Leg 08/08/2017 Hyperlipidemia 07/22/2017 Ulcer Leg Left 04/19/2017 Ulcer Toe Left 04/19/2017 Atherosclerosis Of [place] Ar teries Of Left Leg With Ulceration Of Unspecified Site 04/19/2017 Peripheral Arterial Disease 02/16/2017 Hypertension NOS 02/16/2017 Hypertensive Chronic Kidney Disease With Stage 1 Through Stage 4 Chronic Kidney Disease, Or Unspecified Chronic Kidney Disease 09/23/2016 Overview (10/05/2016): Hypertension (HTN) And CKD Stage 1-4 Care Home Use Of Insulin Active 09/23/2016 Overview (10/05/2016): Edgerman Use Of Insulin Active Depression Major Recurrent Moderate 06/22/2016 Overview (10/05/2016): Depression Major Recurrent Moderate Diabetes Mellitus Type 2 Wit h Other Circulatory Complication 06/22/2016 Overview (10/05/2016): DM2 Peripheral Neuropathy Uncontrolled Encounters Date Type Department Care Team Description 02/23/2024 Refill Division of Nephrology and Hypertension in [place], [place] [address] [place] [address] Onesimo Rodriguez M.D. Med Refill 02/11/2024 Refill Division of Nephrology and Hypertension in [place], [place] [address] [place] [address] Haseeb Menon Jr., D.O. Med Refill 01/14/2024 Refill Division of Nephrology and Hypertension in [place], [place] [address] [place] [address] Onesimo Rodriguez M.D. Med Refill 01/05/2024 Orders Only Department of Vascular Medicine in [place], [place] [address] [place] [address] Jayjay Pak P.A.-C. Follow Up Examination Status [...] How often do you attend scientologist or quaker serv ices? 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 Gender Identity Male 08/31/2019 2:40 PM [...] CDT Appointment Department of Vascular Medicine in [place], [place] [address] [place] [phone] Jayjay Pak, XiAFei-Jennifer [address] [place] [phone] Discharge Disposition: Home or Self Care 03/05/2024 10:40 AM CDT Ancillary Procedure Department of Cardiovascular Medicine in [place], [place] [address] [place] [phone] Jayjay Pak, PFeiAFei-CFei [address] [place] [phone] 03/05/2024 11:00 AM CDT Appointment Department of Radiology, [facility], in [place], [place] [address] [place] [address] Jayjay Pak P.A.-CFei [address] [place] [phone] 03/05/2024 1:45 PM CDT Appointment Department of Radiology, [facility], in [place], [place] [address] [place] [address] Jyajay Pak P.A.-CFei [address] [place] [phone] 03/05/2024 3:00 PM CDT Office Visit Department of Vascular Medicine in [place], [place] [address] [place] [address] Jayajy Pak P.AFei-CFei [address] [place] [address] Health Maintenance Due Date Last Done Comments [...] 08/15, 05/06/2022, Additional history exists COVID-19 Vaccine (2023-06 5 season) 2024 10/27/2021, 04/02/2021, 08/09/2020, Additional [...] 02/14/2023, 11/17/2022 Medical Devices Implanted Type Area Woodworking Machine Setter Device Identifier Shelf Expiration Date Model / Serial / Lot Patch Vasc Bovine.08cm X 8cm - Flores [id number] Implanted:Qty: 1 on 04/04/2017 Mesh or Patch Other/Legacy - See Implant Description Synovis Description:Device Manufactu rer - Synovis. Body Location - Other. Vascular. Device Status Text - [id number]. Ocular Lens-10/29/2007 Implanted:10/28 by Nato Dougherty APRN, C.N.P., R.N. 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 Device Status Text - [id number]. Stent Vbx [id number] - Flores [id number] Implanted:Qty: 1 on 03/04/2017 Vascular Graft Other/Legacy - See Implant Description [place] Description:Device Manufactu rer - [employer] [place] [employer] Body Location - Other. n/a. Device Status Text - [id number]. Stent Vbx [id number] - Flores [id number] Implanted:Qty: 1 on 03/04/2017 Vascular Graft Other/Legacy - See Implant Description [place] Description:Device Manufactu rer - [employer] [place] [employer] Body Location - Other. n/a. Device Status Text - [id number]. Stent Zilver Ptx 6mm X 40mm - Flores [id number] Implanted:Qty: 1 on 04/04/2017 Vascular Stent Other/Legacy - See Implant Description [employer] Description:Device Manufactu rer - [employer]Gen Platform. Body Location - Other. Left. Device Status Text - [id number]. Stent Zilver Ptx 6mm X 60mm - Flores [id number] Implanted:Qty: 1 on 04/04/2017 Vascular Stent Other/Legacy - See Implant Description [employer] Description:Device Manufactu rer - [employer]. Body Location - Other. Left. Device Status Text - [id number]. Stent Zilver Ptx 6mm X 80mm - Flores [id number] Implanted:Qty: 1 on 08/31/2017 Vascular Stent Right: Other/Legacy - See Implant Description [employer] / [id number] / Description:Device Manufactu rer - [employer]. Body Location - Right. Device Status Text - [id number]. Stent Zilver Ptx 6mm X 40mm - Flores [id number] Implanted:Qty: 1 on 08/31/2017 Vascular Stent Right: Other/Legacy - See Implant Description [employer] / [id number] / Description:Device Manufactu rer - [employer]. Body Location - Right. Device Status Text - [id number]. Stnt Innova Otw [id number] - [id number] Implanted:Qty: 1 on 04/18/2018 by Kemar Velásquez M.B.B.S. at [facility] Vascular Stent [employer] 05/23/2020 [id number] / / [id number] Stnt Innova Otw [id number] - [id number] Implanted:Qty: 1 on 05/11/2019 by Kemar Velásquez M.B.B.S. at [facility] Vascular Stent Left: Leg [employer] 09/05/2020 [id number] / / [id number] Procedures Procedure Name Priority Date/Time Associated Diagnosis [...] Renal Disease Acidosis Metabolic Hyperchloremic Atherosclerosis Of [place]ct[place] Arteries Of Extremities With Intermittent Claudication [...] 4:02 PM CDT Specimen Information: Specimen ID: [id number] Specimen Type: Blood Specimen Collection Start Date: 02/17/2023 ??9:35 AM Specimen Received Date: 02/17/2023 11:01 AM Specimen ID: [id number] Specimen Type: Blood Specimen Collection Start Date: 02/17/2023 ??9:35 AM Specimen Received Date: 02/17/2023 ??3:35 PM us Haseeb Menon Jr. DFeiOFei LAB BLOOD ADD-ON Fin al Result [facility] [address] [place] [address], [facility] in [place] [address] [place] [address] AUST [facility] [address] [place] [address] * HCV Ab Scrn w/Reflex to HCV PCR, Serum (02/17/2023 9:35 AM CDT) HCV Ab Screen, S Negative Negative 02/18/20 3:35 PM CDT [facility] Comment: Biotin has been identified by the director of retail analytics as a potential interfering substance. Higher concentrations [...] 3:35 PM CDT Specimen Information: Specimen ID: [id number] Specimen Type: Blood Specimen Collection Start Date: 02/17/2023 ??9:35 AM Specimen Received Date: 02/17/2023 ??2:20 PM Specimen ID: [id number] Specimen Type: Blood Specimen Collection Start Date: 02/17/2023 ??9:35 AM Specimen Received Date: 02/17/2023 ??2:16 PM us Haseeb Menon Jr. D.OFei LAB MICROBIOLOGY - B LOOD ORDERABLES Final Result [facility] [address] [place] [address], [facility] in [place] [address] [place] [address] * (ABNORMAL) Albumin, Random, Urine (02/17/2023 9:26 AM CDT) Microalbumin 895.0 mg/L 02/17/2023 1:53 PM CDT OW[facility] Creatinine 42 mg/dL 02/17/2023 12:50 PM CDT OW[facility] Albumin/Creatinin e Ratio 2131(H) <17 mg/g 02/17/2023 1:53 PM CDT [facility] Urine (Urine, Voided) 02/17/2023 9:26 AM CDT 02/17/2023 11:00 AM CDT us Haseeb Menon Jr. D.OFei LAB URINE ORDERABLES Final Result [facility] [address] [place] [address], [facility] in [place] [address], [place] [address] * (ABNORMAL) Hemoglobin A1c (11/25/2022 2:09 PM CDT) Hemoglobin A1c, B 6.2(H) 4.2 - 5.6 % 11/25/2022 4:40 PM CDT [facility] Comment: Hemoglobin A1c values of 5.7-6.4 percent indicate an increased risk for developing diabetes mellitus. In diabetic patients, HbA1c goals should be discussed with healthcare provider. Blood (Blood, Venous) 11/25/2022 2:09 PM CDT 11/25/2022 3:35 PM CDT us Haseeb Menon Jr., D.O. LAB BLOOD ADD-ON Fin al Result Performing Organization Address [facility] Co de Phone Number [facility] [address] [place] [address], [facility] in [place] [address] [place] [address] * (ABNORMAL) Lipid Panel (02/10/2021 8:27 AM [...] AM CDT Kemar Reyes LAB BLOOD ADD-ON Final Resu lt [facility] [address] [place] [address], [facility] [address] [place] [address] * CT Abdomen Pelvis Angiogram with IV [...] moderate stenosis. Kemar Reyes IMG CT PROCEDURES Final Res ult from Last 3 Months or Most Recently Relevant to Health Maintenance Insurance [facility] MEDICARE Advance Directives For more information, please contact: [phone] * Full Code (Latest Code Status on [...] Answer Comments Full Code: Discussed Care Teams Snipper Relationship Specialty Start Date End Date Elsewhere, Pcp PCP - General Family Medicine 01/29/20
--- OUTSIDE RECORDS SUMMARY | 2024-02-28 10:13 | XMS_ITS | Encounter Summary ---
Author Organization [facility] Address [address] [place] [address] Care Team Providers Care Forest Logistics Manager Name Role Phone Elsewhere, Pcp Primary Care Provider Unavailabl e Reason for Visit * Reason Comments Med Refill Encounter Details Date Type Department Care Team (Late st Contact Info) Description 02/23/2024 Refill Division of Nephrology and Hypertension in [place], [place] [address] [place] [address] Onesimo Rodriguez M.D. Med Refill Social History [...] How often do you attend adventist or hoahaoism serv ices? 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 D.O. - 02/24/2024 5:42 PM CDT He is on PD. We have changed this to std phos binders! documented in this encounter Plan of Treatment Upcoming Encounters Date Type Department Care Team (Latest Contact Info) Description 03/05/2024 7:30 AM CDT Appointment Department of Vascular Medicine in [place], [place] [address] [place] [address] Jayjay Pak P.A.-C. [address] [place] [address] Discharge Disposition: Home or Self Care 03/05/2024 10:40 AM CDT Ancillary Procedure Department of Cardiovascular Medicine in [place], [place] [address] [place] [address] Jayjay Pak P.A.-C. [address] [place] [phone] 03/05/2024 11:00 AM CDT Appointment Department of Radiology, [facility], in [place], [place] [address] [place] [phone] Jayjay Pak P.A.-C. [address] [place] [phone] 03/05/2024 1:45 PM CDT Appointment Department of Radiology, [facility] in [place], [place] [address] [place] [address] Jayjay Pak P.A.-C. [address] [place] [phone] 03/05/2024 3:00 PM CDT Office Visit Department of Vascular Medicine in [place], [place] [address] [place] [phone] Jayjay Pak P.A.-C. [address] [place] [phone] documented as of this encounter Visit Diagnoses Not on filedocumented in this encounter Additional Health Concerns Assessment Noted Time PHQ-9 Depression Total Score: 3 01/04/20 18 10:38 AM CDT documented as of this encounter Care Teams Forest Logistics Manager Relationship Specialty Start Date End Date Elsewhere, Pcp PCP - General Family Medicine 01/29/20 documented as of this encounter
--- OUTSIDE RECORDS SUMMARY | 2024-02-28 10:13 | XMS_ITS | Clinical Summary ---
Author Organization [facility] Address [place], [place] [address] Care Team Providers Care Database Administration Project Manager Name Role Phone Casa Lucia MD Unavailable Unavailable Rudy Riddle MD Unavailable [phone] Rudy Riddle MD Primary Care Provider + Allergies Active Allergy Reactions Criticality Noted Date Comments Gabapentin Other - Describe In Comment Field Medium 08/04/2020 Dizzy, memory issue Dizzy, memory issue Morphine Itching 02/04/2010 After 3 days of use Pregabalin Anaphylaxis,Itching High 02/16/2017 swetesfaye jane Mcvpdzc-Xmz-Bnm Reductase Inhibitors Myalgia 02/13/2014 Medications Medication Sig [...] Comments Blood Pressure 162/87 07/21/2022 9:21 PM FOOD SERVICE WORKER Pulse 100 07/21/2022 9:21 PM FOOD SERVICE WORKER Temperature 37.1 ??C (98.8 ??F) 07/21/2022 8:51 PM CS T Respiratory Rate 18 07/21/2022 8:51 PM FOOD SERVICE WORKER Oxygen Saturation 96% 07/21/2022 9:21 PM FOOD SERVICE WORKER Inhaled Oxygen Concentration - - Weight 83.9 kg (185 lb) 07/21/2022 5:35 PM FOOD SERVICE WORKER Height 175.3 cm (5' 9) 07/21/2022 5:35 PM FOOD SERVICE WORKER Body Mass Index 27.32 07/21/2022 5:35 PM FOOD SERVICE WORKER Plan of Treatment Health Maintenance Due Date [...] [facility]/04/2006 [facility] Tdap Completed 08/16/2016 Pneumococcal series for age 65+ Completed 04/24/2018, 04/11/2017, 02/14/2012, Additional history exists Goals Goal Patient Goal Type Associated Problems Recent Progress Patient-Stated? Author BLOOD PRESSURE - MAINTAINS BP less than 140/90 Blood Pressure Rudy Orozco MD Procedures Procedure Name Priority Date/Time Associated Diagnosis Comments COLONOSCOPY 05/12/2022 8:51 AM FOOD SERVICE WORKER LIPID PANEL W REFLEX MEASURED LDL Routine 02/16/2016 8:59 AM CDT Hyperlipidemia, unspecified hyperlipidemia type from Last 3 Months or Most Recently Relevant to Health Maintenance Results * COLONOSCOPY (05/12/2022 8:51 AM FOOD SERVICE WORKER) 05/12/2022 8:51 AM FOOD SERVICE WORKER Narrative Transcriptions Lukas West MD - 05/12/2022 9:03 AM [facility] Patient Name: Onesimo Walton Procedure Date: 05/12/2022 Gender: Male Date of : 1950 Admit Type: Inpatient Procedure: Colonoscopy Proceduralist: Lukas West MD [facility] Indications/Pre-Op Diagnosis: Anemia. Bacteremia Medications: Monitored Anesthesia Care Procedure Description: The patient had risks, benefits and alternatives explained to andgave informed consent. The patient had a stable cardiopulmonary status and judged an adequate candidate for conscious sedation. The [id number] endoscope was passed through the anus and [...] - 199 mg/dL 02/16/2016 11:02 AM CDT [facility] TRIGLYCERIDES 232(H) <150 mg/dL 02/16/2016 11:02 AM CDT [facility] HDL CHOLESTEROL 31(L) >40 mg/dL 02/16/2016 11:02 AM CDT [facility] NON-HDL CHOLESTEROL 147(H) <145 mg/dl 02/16/2016 11:02 AM CDT [facility] CHOL/HDL RATIO 5.74(H) <4.50 02/16/2016 11:02 AM CDT [facility] LDL CHOLESTEROL 101 <=130 mg/dL 02/16/2016 11:02 AM CDT [facility] PATIENT STATUS FASTING 02/16/2016 11:02 AM CDT [facility] Blood BLOOD SPECIMEN / Unknown Venipuncture / Unknown 02/16/2016 8:59 AM CDT 02/16/2016 8:59 AM CDT Rudy Riddle MD CHEMISTRY [facility] [address] [place], [place] [phone] [place] [address] [address] [place] [address], [place] [phone] from Last 3 Months or Most Recently [...] Preferences, Provider to review later Care Teams Database Administration Project Manager Relationship Specialty Start Date End Date Rudy Riddle MD [address] [place] [address] PCP - General Family Practice 05/25/22 [place] [id number] [address] [facility] [address] [place] [address] Ophthalmology Ophthalmology Surgery 12/22/11 Rudy Riddle MD [address] [place] [address] Family Practice 05/07/22
--- OUTSIDE RECORDS SUMMARY | 2024-02-28 10:13 | XMS_ITS | Referral Summary ---
Author Organization [facility] Address [address] [place] [address] Care Team Providers Care Fruit Or Nut Grower Name Role Phone Elsewhere, Pcp Primary Care Provider Unavailabl e Source Comments Patient records contain information from all sites at [facility]. For routine questions regarding patient records, call [phone] during business hours, M-F 8:00 AM - 5:00 PM Central Time. Record requests for emergency care only can be directed to [phone] at any time.[facility] Encounters Date Type Department Care Team Description 02/23/2024 Refill Division of Nephrology and Hypertension in [place], [place] [address] [place] [address] Onesimo Rodriguez M.D. Med Refill 02/11/2024 Refill Division of Nephrology and Hypertension in [place], [place] [address] [place] [address] Haseeb Menon Jr., D.O. Med Refill 01/14/2024 Refill Division of Nephrology and Hypertension in [place], [place] [address] [place] [address] Onesimo Rodriguez M.D. Med Refill 01/05/2024 Orders Only Department of Vascular Medicine in [place], [place] [address] [place] [address] Jayjay Pak P.A.-C. 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 SYSTEM ENGINEER 01/15/20 22 Active allopurinoL (ZYLOPRIM) 100 mg [...] 04/21/2018 Restless Leg Syndrome 01/12/2018 Atherosclerosis Of [place] Ira Ar teries Of Extremities With Intermittent Claudication Right Leg 08/08/2017 Hyperlipidemia 07/22/2017 Ulcer Leg Left 04/19/2017 Ulcer Toe Left 04/19/2017 Atherosclerosis Of [place] Ar teries Of Left Leg With Ulceration Of Unspecified Site 04/19/2017 Peripheral Arterial Disease 02/16/2017 Hypertension NOS 02/16/2017 Hypertensive Chronic Kidney Disease With Stage 1 Through Stage 4 Chronic Kidney Disease, Or Unspecified Chronic Kidney Disease 09/23/2016 Overview (10/05/2016): Hypertension (HTN) And CKD Stage 1-4 Repairer Handtools Use Of Insulin Active 09/23/2016 Overview (10/05/2016): Custodial Use Of Insulin Active Depression Major [...] How often do you attend mandaen or episcopal serv ices? Never 03/24/2021 Do [...] PHQ-2 Score 0 10/20/2018 [facility] [place] of Occupat ional Health - Occupational Stress [...] Sex Assigned at Male 03/24/2021 8:13 PM DISTRICT SUPERINTENDENT Legal Sex Male 12:04 AM DISTRICT SUPERINTENDENT Gender Identity Male 08/31/2019 2:40 PM [...] CDT Appointment Department of Vascular Medicine in [place], [place] [address] [place] [phone] Jayjay Pak, XiAFei-CFei [address] [place] [phone] Discharge Disposition: Home or Self Care 03/05/2024 10:40 AM CDT Ancillary Procedure Department of Cardiovascular Medicine in [place], [place] [address] [place] [phone] Jayjay Pak P.A.-CFei [address] [place] [phone] 03/05/2024 11:00 AM CDT Appointment Department of Radiology, [facility], in [place], [place] [address] [place] [phone] Jayjay Pak P.A.-CFei [address] [place] [phone] 03/05/2024 1:45 PM CDT Appointment Department of Radiology, [facility], in [place], [place] [address] [place] [address] Jayjay Pak P.A.-C. [address] [place] [phone] 03/05/2024 3:00 PM CDT Office Visit Department of Vascular Medicine in [place], [place] [address] [place] [address] Jayjay Pak P.A.-C. [address] [place] [address] Medical Devices Implanted Type Area Plastic Sheets Supervisor Device Identifier Shelf Expiration Date Model / Serial / Lot Patch Vasc Bovine.08cm X 8cm - Flores [id number] Implanted:Qty: 1 on 04/04/2017 Mesh or Patch Other/Legacy - See Implant Description Synovis Description:Device Manufactu rer - Synovi. Body Location - Other. Vascular. Device Status Text - [id number]. Ocular Lens-10/29/2007 Implanted:10/28 by Nato Dougherty, JULIÁN, C.N.P., R.N. 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 Device Status Text - [id number]. Stent Vbx [id number] - Flores [id number] Implanted:Qty: 1 on 03/04/2017 Vascular Graft Other/Legacy - See Implant Description [place] Description:Device Manufactu rer - [employer] Body Location - Other. n/a. Device Status Text - [id number]. Stent Vbx [id number] - Flores [id number] Implanted:Qty: 1 on 03/04/2017 Vascular Graft Other/Legacy - See Implant Description [place] Description:Device Manufactu rer - [employer] Body Location - Other. n/a. Device Status Text - [id number]. Stent Zilver Ptx 6mm X 40mm - Flores [id number] Implanted:Qty: 1 on 04/04/2017 Vascular Stent Other/Legacy - See Implant Description [employer] Description:Device Manufactu rer - [employer]. Body Location - Other. Left. Device Status Text - [id number]. Stent Zilver Ptx 6mm X 60mm - Flores [id number] Implanted:Qty: 1 on 04/04/2017 Vascular Stent Other/Legacy - See Implant Description [employer] Description:Device Manufactu rer - [employer]. Body Location - Other. Left. Device Status Text - [id number]. Stent Zilver Ptx 6mm X 80mm - Flores [id number] Implanted:Qty: 1 on 08/31/2017 Vascular Stent Right: Other/Legacy - See Implant Description [employer] / [id number] / Description:Device Manufactu rer - [employer]. Body Location - Right. Device Status Text - [id number]. Stent Zilver Ptx 6mm X 40mm - Flores [id number] Implanted:Qty: 1 on 08/31/2017 Vascular Stent Right: Other/Legacy - See Implant Description [employer] / [id number] / Description:Device Manufactu rer - [employer]. Body Location - Right. Device Status Text - [id number]. Stnt Innova Otw [id number] - [id number] Implanted:Qty: 1 on 04/18/2018 by Kemar Velásquez M.B.BFeiSFei at [facility] Vascular Stent [employer] 05/23/2020 [id number] / / [id number] Stnt Innova Otw [id number] - [id number] Implanted:Qty: 1 on 05/11/2019 by Kemar Velásquez M.B.B.SFei at [facility] Vascular Stent Left: Leg Get[employer]d 09/05/2020 [id number] / / [id number] Procedures Procedure Name Priority Date/Time Associated Diagnosis [...] Renal Disease Acidosis Metabolic Hyperchloremic Atherosclerosis Of [place] Ira Arteries Of Extremities With Intermittent Claudication [...] AM CDT Narrative [facility] - 02/17/2023 4:02 PM CDT Specimen Information: Specimen ID: [id number] Specimen Type: Blood Specimen Collection Start Date: 02/17/2023 ??9:35 AM Specimen Received Date: 02/17/2023 11:01 AM Specimen ID: [id number] Specimen Type: Blood Specimen Collection Start Date: 02/17/2023 ??9:35 AM Specimen Received Date: 02/17/2023 ??3:35 PM us Haseeb Menon Jr., D.O. LAB BLOOD ADD-ON Fin al Result [facility] [address] [place] [address], [facility] [place] [address] [place] [address] AUST [facility] - [facility] [address] [place] [address] * HCV Ab Scrn w/Reflex to HCV PCR, Serum (02/17/2023 9:35 AM CDT) HCV Ab Screen, S Negative Negative 02/18/20 3:35 PM CDT MK Comment: Biotin has been identified by the corporate manager as a potential interfering substance. Higher concentrations of biotin may be found in multivitamins, hair/nail supplements, and workout supplements. If the result does not match clinical observations, repeat testing after patient refrains from the use of supplements for at least 12 hours. Blood (Blood, Venous) 02/17/2023 9:35 AM CDT 02/17/2023 2:20 PM CDT Narrative [facility] - 02/17/2023 3:35 PM CDT Specimen Information: Specimen ID: [id number] Specimen Type: Blood Specimen Collection Start Date: 02/17/2023 ??9:35 AM Specimen Received Date: 02/17/2023 ??2:20 PM Specimen ID: [id number] Specimen Type: Blood Specimen Collection Start Date: 02/17/2023 ??9:35 AM Specimen Received Date: 02/17/2023 ??2:16 PM us Haseeb Menon Jr., D.O. LAB MICROBIOLOGY - B LOOD ORDERABLES Final Result Performing Organization Address City/[facility]/ZIP Co de Phone Number [facility] [place] [address], [place] [address] [place] [address] * (ABNORMAL) Albumin, Random, Urine (02/17/2023 9:26 AM CDT) Microalbumin 895.0 mg/L 02/17/2023 1:53 PM CDT [facility] Creatinine 42 mg/dL 02/17/2023 12:50 PM CDT [facility] Albumin/Creatinin e Ratio 2131(H) <17 mg/g 02/17/2023 1:53 PM CDT [facility] Urine (Urine, Voided) 02/17/2023 9:26 AM CDT 02/17/2023 11:00 AM CDT us Haseeb Menon Jr., D.O. LAB URINE ORDERABLES Final Result Performing Organization Address [facility] de Phone Number [facility] [address] [place] [address], [facility] [address] [facility] [place] [address] [place] [address] * (ABNORMAL) Hemoglobin A1c (11/25/2022 2:09 PM CDT) Hemoglobin A1c, B 6.2(H) 4.2 - 5.6 % 11/25/2022 4:40 PM CDT [facility] Comment: Hemoglobin A1c values of 5.7-6.4 percent indicate an increased risk for developing diabetes mellitus. In diabetic patients, HbA1c goals should be discussed with healthcare provider. Blood (Blood, Venous) 11/25/2022 2:09 PM CDT 11/25/2022 3:35 PM CDT us Kylah He Jr..O. LAB BLOOD ADD-ON Fin al Result Performing Organization Address City/[facility]/ZIP Co de Phone Number [facility] [address] [place] [address], [facility] [facility] [place] [address] [place] [address] * (ABNORMAL) Lipid Panel (02/10/2021 8:27 AM [...] Reyes LAB BLOOD ADD-ON Final Resu lt [facility] [place] [address] [place] [address], [facility] [address] [place] [address] * CT Abdomen Pelvis Angiogram with IV [...] 4. Left common femoral artery moderate stenosis. us Kemar Reyes IMG CT PROCEDURES Final Res ult from Last 3 Months or Most Recently Relevant to Health Maintenance Insurance [facility] [place] [address] MEDICARE Advance Directives For more information, please contact: [phone] * Full Code (Latest Code Status on [...] Answer Comments Full Code: Discussed Care Teams Fruit Or Nut Grower Relationship Specialty Start Date End Date Elsewhere, Pcp PCP - General Family Medicine 01/29/20
--- OUTSIDE RECORDS SUMMARY | 2024-02-28 10:13 | XMS_ITS | Encounter Summary ---
Author Organization [facility] Address [address] [place] [address] Care Team Providers Care Facility Maintenance Mechanic Name Role Phone Elsewhere, Pcp Primary Care Provider Unavailabl e Reason for Visit * Reason Comments Med Refill Encounter Details Date Type Department Care Team (Late st Contact Info) Description 02/11/2024 Refill Division of Nephrology and Hypertension in [place], [place] [address] [place] [address] Haseeb Menon Jr., D.O. [address] [place] [address] Med Refill Social History Tobacco Use Types [...] often do you attend jehovah's witness or gnosticism serv ices? Never 03/24/2021 Do [...] Score 0 10/20/2018 [facility] - Occupational Stress Questionnaire Answer [...] your living situation today? I have a [facility] live 10/26/2022 Education Answer Date Recorded What is the highest level of school you have completed or the highest degree you have received? 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/2021 8:13 PM LINUX DEVOPS ENGINEER Legal Sex Male 12:04 AM LINUX DEVOPS ENGINEER Gender Identity Male 08/31/2019 2:40 PM [...] CDT Appointment Department of Vascular Medicine in [place], [place] [address] [place] [phone] Jayjay Pak P.A.-C. [address] [place] [phone] Discharge Disposition: Home or Self Care 03/05/2024 10:40 AM CDT Ancillary Procedure Department of Cardiovascular Medicine in [place], [place] [address] [place] [phone] Jayjay Pak P.A.-C. [address] [place] [phone] 03/05/2024 11:00 AM CDT Appointment Department of Radiology, [facility], in [place], [place] [address] [place] [phone] Jayjay Pak P.A.-C. [address] [place] [phone] 03/05/2024 1:45 PM CDT Appointment Department of Radiology, [facility], in [place], [place] [address] [place] [phone] Jayjay Pak P.A.-Jennifer [address] [place] [phone] 03/05/2024 3:00 PM CDT Office Visit Department of Vascular Medicine in [place], [place] [address] [place] [phone] Jayjay Pak P.A.-Jennifer [address] [place] [phone] documented as of this encounter Visit Diagnoses Not on filedocumented in this encounter Additional Health Concerns Assessment Noted Time PHQ-9 Depression Total Score: 3 01/04/20 18 10:38 AM CDT documented as of this encounter Care Teams Facility Maintenance Mechanic Relationship Specialty Start Date End Date Elsewhere, Pcp PCP - General Family Medicine 01/29/20 documented as of this encounter
--- OUTSIDE RECORDS SUMMARY | 2024-02-28 10:13 | XMS_ITS ---
Author Organization [facility] Address [address] [place] [address] Care Team Providers Care Diffuser Operator Name Role Phone Unavailable Unavailable Unavailable Surgery Details Not on file Complications Check Surgery Details section. Procedure Estimated Blood Loss Check Surgery Details section. Procedure Findings Check Surgery Details section. Procedure Specimens Taken Check Surgery Details section.
--- OUTSIDE RECORDS SUMMARY | 2024-02-28 10:14 | XMS_ITS | Encounter Summary ---
Author Organization [facility] Address [address] [place] [address] Care Team Providers Care Analytical Engineer Name Role Phone Elsewhere, Pcp Primary Care Provider Unavailabl e Reason for Referral * Outpatient (Routine) - Authorized Specialty Diagnoses / Procedures Referred By Robi t Referred To Contact Diagnoses Follow Up Examination Status Post Surgery Peripheral Arterial Disease (HCC) Procedures US Lower Extremity Artery Graft Bilateral Jayjay Pak P.A.-C. [address] [place] [address] Phone: tel: fax: [facility] Referral ID Status Reason Start Date Expiration Date V isits Requested Visits Authorized [id number] Authorized 01/05/2024 01/04/2025 1 1 * Outpatient (Routine) - Authorized Specialty Diagnoses / Procedures Referred By Contac t Referred To Contact Diagnoses Follow Up Examination Status Post Surgery Peripheral Arterial Disease (HCC) Procedures US Aorta Iliac Arteries Bilateral with Doppler Jayjay Pak P.A.-C. [address] [place] [address] Phone: tel: fax: [facility] Referral ID Status Reason Start Date Expiration Date V isits Requested Visits Authorized [id number] Authorized 01/05/2024 01/04/2025 1 1 * Outpatient (Routine) - Authorized Specialty Diagnoses / Procedures Referred By Contac t Referred To Contact Diagnoses Follow Up Examination Status Post Surgery Peripheral Arterial Disease (HCC) Procedures ECG 12 Lead Jayjay Pak P.A.-C. [address] [place] [phone] Phone: tel: fax: [facility] Referral ID Status Reason Start Date Expiration Date V isits Requested Visits Authorized [id number] Authorized 01/05/2024 01/04/2025 1 1 * Outpatient (Routine) - Authorized Specialty Diagnoses / Procedures Referred By Contac t Referred To Contact Vascular Medicine Jayjay Pak P.A.-C. [address] [place] [phone] Phone: tel: fax: [facility] Referral ID Status Reason Start Date Expiration Date V isits Requested Visits Authorized [id number] Authorized 01/05/2024 07/06/2025 1 1 * Outpatient (Routine) - Authorized Specialty Diagnoses / Procedures Referred By Contac t Referred To Contact Diagnoses Follow Up Examination Status Post Surgery Peripheral Arterial Disease (HCC) Procedures Lower Extremity Arterial (MIMI) - Exercise (Claudication) Jayjay Pak P.A.-C. [address] [place] [phone] Phone: tel: fax: [facility] Referral ID Status Reason Start Date Expiration Date V isits Requested Visits Authorized [id number] Authorized 01/05/2024 01/04/2025 1 1 Encounter Details Date Type Department Care Team (Late st Contact Info) Description 01/05/2024 Orders Only Department of Vascular Medicine in [place], [place] [address] [place] [phone] Jayjay Pak P.A.-C. [address] [place] [address] Follow Up Examination Status Post Surgery (Primary [...] often do you attend roman catholic or samaritan serv ices? 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/2021 8:13 PM AQUACULTURE FARM MANAGER Legal Sex Male 12:04 AM AQUACULTURE FARM MANAGER Gender Identity Male 08/31/2019 2:40 PM CDT Sexual Orientation Straight 08/31/2019 2: 40 PM CDT documented as of this encounter Plan of Treatment Upcoming Encounters Date Type Department Care Team (Latest Contact Info) Description 03/05/2024 7:30 AM CDT Appointment Department of Vascular Medicine in [place], [place] [address] [place] [phone] Jayjay Pak P.A.-C. [address] [place] [phone] Discharge Disposition: Home or Self Care 03/05/2024 10:40 AM CDT Ancillary Procedure Department of Cardiovascular Medicine in [place], [place] [address] [place] [phone] Jayjay Pak P.A.-C. [address] [place] [phone] 03/05/2024 11:00 AM CDT Appointment Department of Radiology, [facility] in [place], [place] [address] [place] [phone] Jayjay Pak P.A.-C. [address] [place] [phone] 03/05/2024 1:45 PM CDT Appointment Department of Radiology, [facility], in [place], [place] [address] [place] [phone] Jayjay Pak P.A.-C. [address] [place] [phone] 03/05/2024 3:00 PM CDT Office Visit Department of Vascular Medicine in [place], [place] [address] [place] [address] Jayjay Pak P.A.-C. [address] [place] [address] Scheduled Orders Name Type Priority Associated Diagnoses [...] documented as of this encounter Care Teams Analytical Engineer Relationship Specialty Start Date End Date Elsewhere, Pcp PCP - General Family Medicine 01/29/20 documented as of this encounter
--- OUTSIDE RECORDS SUMMARY | 2024-02-28 10:14 | XMS_ITS | Encounter Summary ---
Author Organization [facility] Address [address] [place] [address] Care Team Providers Care General Internal Medicine Physician Name Role Phone Elsewhere, Pcp Primary Care Provider Unavailabl e Encounter Details Date Type Department Care Team (Late st Contact Info) Description 08/19/2016 Historical Ophthalmology [facility] Chalo Holland Jr., M.D. [address] [place] [address] Social History Tobacco Use Types Packs/Day Years Used Date Smoking Tobacco: Every Day Sex and Gender Information Value Date Recorded Sex Assigned at Male 03/24/2021 8:13 PM COMPUTER SCIENCE TEACHER Legal Sex Male 12:04 AM COMPUTER SCIENCE TEACHER Gender Identity Male 08/31/2019 2:40 PM [...] IOL OU CDM Reports - EYEGEN Id: [id number] Status: Fnl documented in this encounter Plan of Treatment Upcoming Encounters Date Type Department Care Team (Latest Contact Info) Description 03/05/2024 7:30 AM CDT Appointment Department of Vascular Medicine in [place], [place] [address] [place] [phone] Jayjay Pak P.A.-C. [address] [place] [phone] Discharge Disposition: Home or Self Care 03/05/2024 10:40 AM CDT Ancillary Procedure Department of Cardiovascular Medicine in [place], [place] [address] [place] [phone] Jayjay Pak P.A.-C. [address] [place] [phone] 03/05/2024 11:00 AM CDT Appointment Department of Radiology, [facility], in [place], [place] [address] [place] [address] Jayjay Pak P.A.-C. [address] [place] [phone] 03/05/2024 1:45 PM CDT Appointment Department of Radiology, [facility], in [place], [place] [address] [place] [address] Jayjay Pak P.A.-C. [address] [place] [phone] 03/05/2024 3:00 PM CDT Office Visit Department of Vascular Medicine in [place], [place] [address] [place] [phone] Jayjay Pak P.A.-C. [address] [place] [phone] documented as of this encounter Visit Diagnoses Not on filedocumented in this encounter Additional Health Concerns Infection Onset Date Last Indicated Resolved Time COVID19 Pending 05/08/2020 05/08/2020 05/08/2020 2 :44 PM COMPUTER SCIENCE TEACHER Assessment Noted Time PHQ-9 Depression Total Score: 7 08/17/19 17 9:01 AM CDT documented as of this encounter Care Teams General Internal Medicine Physician Relationship Specialty Start Date End Date Elsewhere, Pcp PCP - General Family Medicine 01/29/20 documented as of this encounter
--- OUTSIDE RECORDS SUMMARY | 2024-02-28 10:14 | XMS_ITS | Encounter Summary ---
Author Organization [facility] Address [address] [place] [address] Care Team Providers Care Panel Edge Painter Name Role Phone Elsewhere, Pcp Primary Care Provider Unavailabl e Reason for Visit * Reason Comments Med Refill Encounter Details Date Type Department Care Team (Late st Contact Info) Description 01/14/2024 Refill Division of Nephrology and Hypertension in [place], [place] [address] [place] [address] Onesimo Rodriguez M.D. Med Refill Social History [...] How often do you attend restorationist or hinduism serv ices? 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/2021 8:13 PM LEAF STAMPER Legal Sex Male 12:04 AM LEAF STAMPER Gender Identity Male 08/31/2019 2:40 PM CDT Sexual Orientation Straight 08/31/2019 2: 40 PM CDT documented as of this encounter Miscellaneous Notes * Telephone Encounter - Haseeb Menon Jr., D.O. - 01/19/2024 12:51 PM CDT He is on PD via [facility], I care for him and he does not take these any longer. RCA documented in this encounter Plan of Treatment Upcoming Encounters Date Type Department Care Team (Latest Contact Info) Description 03/05/2024 7:30 AM CDT Appointment Department of Vascular Medicine in [place], [place] [address] [place] [address] Jayjay Pak P.A.-C. [address] [place] [address] Discharge Disposition: Home or Self Care 03/05/2024 10:40 AM CDT Ancillary Procedure Department of Cardiovascular Medicine in [place], [place] [address] [place] [address] Jayjay Pak P.A.-C. [address] [place] [phone] 03/05/2024 11:00 AM CDT Appointment Department of Radiology, [facility] in [place], [place] [address] [place] [phone] Jayjay Pak P.A.-C. [address] [place] [phone] 03/05/2024 1:45 PM CDT Appointment Department of Radiology, [facility] in [place], [place] [address] [place] [phone] Jayjay Pak P.A.-C. [address] [place] [phone] 03/05/2024 3:00 PM CDT Office Visit Department of Vascular Medicine in [place], [place] [address] [place] [phone] Jayjay Pak P.A.-C. [address] [place] [phone] documented as of this encounter Visit Diagnoses Not on filedocumented in this encounter Additional Health Concerns Assessment Noted Time PHQ-9 Depression Total Score: 3 01/04/20 18 10:38 AM CDT documented as of this encounter Care Teams Panel Edge Painter Relationship Specialty Start Date End Date Elsewhere, Pcp PCP - General Family Medicine 01/29/20 documented as of this encounter
== END 2024-02-28 10:10 | disposition home or self-care (01) ==
LOC: WOUND 10:10
PROVIDERS: PCP Family Medicine; Visit Provider Nurse Practitioner Family
DX: E11.621 Type 2 diabetes mellitus with foot ulcer (principal); L97.518 Non-pressure chronic ulcer of other part of right foot with other specified severity; I89.0 Lymphedema, not elsewhere classified; E11.22 Type 2 diabetes mellitus with diabetic chronic kidney disease; N18.5 Chronic kidney disease, stage 5; Z96.41 Presence of insulin pump (external) (internal); Z99.2 Dependence on renal dialysis
CPT/HCPCS: 15275; Q4201

== ENCOUNTER 2024-03-06 09:49 | Outpatient (CLI) | payer MEDICARE, BC, SELFPAY | END 2024-03-06 09:50 | disposition home or self-care (01) | LOC: WOUND 09:49 | PROVIDERS: PCP Family Medicine; Visit Provider Nurse Practitioner Family | DX: E11.621 Type 2 diabetes mellitus with foot ulcer (principal); L97.518 Non-pressure chronic ulcer of other part of right foot with other specified severity; I89.0 Lymphedema, not elsewhere classified; E11.22 Type 2 diabetes mellitus with diabetic chronic kidney disease; N18.5 Chronic kidney disease, stage 5; Z96.41 Presence of insulin pump (external) (internal); Z99.2 Dependence on renal dialysis | CPT/HCPCS: 11042 ==

== ENCOUNTER 2024-03-13 09:45 | Outpatient (CLI) | payer MEDICARE, BC, SELFPAY | END 2024-03-13 09:46 | disposition home or self-care (01) | LOC: WOUND 09:45 | PROVIDERS: PCP Family Medicine; Visit Provider Nurse Practitioner Family | DX: E11.621 Type 2 diabetes mellitus with foot ulcer (principal); L97.518 Non-pressure chronic ulcer of other part of right foot with other specified severity; E11.22 Type 2 diabetes mellitus with diabetic chronic kidney disease; N18.5 Chronic kidney disease, stage 5; Z96.41 Presence of insulin pump (external) (internal); Z99.2 Dependence on renal dialysis | CPT/HCPCS: 97597 ==

== ENCOUNTER 2024-03-20 10:00 | Outpatient (CLI) | payer MEDICARE, BC, SELFPAY ==
--- OUTSIDE RECORDS SUMMARY | 2024-03-20 10:03 | XMS_ITS | Encounter Summary ---
Author Organization [facility] Address [address] [place] [phone] Care Team Providers Care Spray Blender Name Role Phone Elsewhere, Pcp Primary Care Provider Unavailabl e Encounter Details Date Type Department Care Team (Late st Contact Info) Description 03/13/2024 Documentation Division of Nephrology and Hypertension in [place], [place] [address] [place] [address] Haseeb Menon Jr., D.O. [address] [place] [address] Social History Tobacco Use Types Packs/Day Years Used Date Smoking Tobacco: Former Cigarettes 1 38.9 0 05/16/1983 - 04/2022 Smokeless Tobacco: Never Alcohol Use Standard Drinks/Week Comments Not Currently 0 (1 standard drink = 0.6 oz pur e alcohol) [facility] Utilities Answer Date Recorded In the past 12 months has [facility] [employer] gas, oil, or water [employer] threatened to shut off services in your home? No 03/11/2024 Humiliation, Afraid, Rape, and Kick questionnair e [...] often do you attend restoration or mormon serv ices? Never 03/24/2021 Do [...] PHQ-2 Score 0 10/20/2018 [facility] [place] of Occupat ional Health - Occupational Stress [...] exercise (like a brisk walk)? 0 days 03/11/2024 On average, how many minutes do you engage in exercise at this level? 0 min 03/11/2024 Hunger Vital Sign Answer Date Recorded Within the past 12 months, y ou worried that your food would run out before you got the money to buy more. Never true 03/11/20 24 Within the past 12 months, t he food you bought just didn't last and you didn't have money to get more. Never true 03/11/2024 PRAPARE - Transportation Answer Date Re corded In the past 12 months, has l ack of transportation kept you from medical appointments or from getting medications? No 02/14 In the past 12 months, has l ack of transportation kept you from meetings, work, or from getting things needed for daily living? No 03/11/2024 Nutrition Answer Date Recorded On average, how many serving s of fruits and vegetables do you eat per day (serving size is equal to 1 cup or approximately the size of a tennis ball)? 3-5 03/11/2024 Dental Answer Date Recorded Dental: Regular Dentist No 05/15/20 Employment Answer Date Recorded Employment status Retired 03/11/2024 Housing Stability Answer Date Recorded What is your living situation today? I have a [facility] place to live 03/11/2024 Education Answer Date Recorded What is the highest level of school you have completed or the highest degree you have received? 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/2021 8:13 PM REVENUE STAMPER Legal Sex Male 12:04 AM REVENUE STAMPER Gender Identity Male 08/31/2019 2:40 PM CDT Sexual Orientation Straight 08/31/2019 2: 40 PM CDT documented as of this encounter Progress Notes * Haseeb Menon Jr., D.O. - 03/13/2024 9:54 AM CDT Care coordination-monthly peritoneal dialysis visit Please see the [employer] application in the Care everywhere section of the electronic health record for further details. I note he is having upcoming surgery on the 05 of April regarding his critical limb ischemia. Today we reviewed his circumstances, he appears to be clinically volume overloaded. He is making reasonable urine. 1000 cc is a usual daily amount. He has not noted any decline following his recent imaging studies. He is using 160 mg of furosemide twice daily, his blood pressure is above our target,and although he is reaching his target weight of 85 kg he appears volume overloaded. We have asked him to absolutely cut back on his sodium, and we will try and avoid having to use 3.25% Dianeal bags, given his very brittle diabetes. He has had 5 episodes of hypoglycemia over the month as well. Reviewed in the appreciate his issues with respect to his wound on his right toe, in the potential for crystal based arthropathy, which is almost certainly gout. We will continue his allopurinol. Thedose could be increased, although whether this would precipitate further problems or provide benefit is uncertain at this point and we will not change. documented in this encounter Plan of Treatment Upcoming Encounters Date Type Department Care Team (Latest Contact Info) Description 04/03/2024 11:30 AM REVENUE STAMPER Hospital Encounter Post Anesthesia Care Unit in [address] [phone] Kemar Velásquez M.B.B.S. 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 [address] [place] [phone] IR ENDOVASCULAR ANGIOPLASTY STENT LOWER EXTREMITY, right femoral access 04/04/2024 7:40 AM REVENUE STAMPER Hospital Encounter Post Anesthesia Care Unit in [address] [phone] Kemar Velásquez M.B.B.S. 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
--- OUTSIDE RECORDS SUMMARY | 2024-03-20 10:03 | XMS_ITS | Encounter Summary ---
Author Organization [facility] Address [address] [place] [address] Care Team Providers Care Pv Design Engineer Name Role Phone Elsewhere, Pcp Primary Care Provider Unavailabl e Encounter Details Date Type Department Care Team (Late st Contact Info) Description 03/12/2024 7:00 AM CDT Ancillary Procedure Department of Vascular Social History Tobacco Use Types Packs/Day Years Used Date Smoking Tobacco: Former Cigarettes 1 38.9 0 05/16/1983 - 04/2022 Smokeless Tobacco: Never Alcohol Use Standard Drinks/Week Comments Not Currently 0 (1 standard drink = 0.6 oz pur e alcohol) [facility] Utilities Answer Date Recorded In the past 12 months has e [email or web address], gas, oil, or water [employer] threatened to shut off services in your [...] How often do you attend sikhism or faith serv ices? Never 03/24/2021 Do [...] your living situation today? I have a [facility] place to live 03/11/2024 Education Answer Date Recorded What is the highest level of school you have completed or the highest degree you have received? 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/2021 8:13 PM GROUND SOURCE HEAT PUMP TECHNICIAN Legal Sex Male 12:04 AM GROUND SOURCE HEAT PUMP TECHNICIAN Gender Identity Male 08/31/2019 2:40 PM CDT Sexual Orientation Straight 08/31/2019 2: 40 PM CDT documented as of this encounter Plan of Treatment Upcoming Encounters Date Type Department Care Team (Latest Contact Info) Description 04/03/2024 11:30 AM GROUND SOURCE HEAT PUMP TECHNICIAN Hospital Encounter Post Anesthesia Care Unit in [place] [id number] [place] [phone] Kemar Velásquez M.B.B.S. 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 [address] [place] [phone] IR ENDOVASCULAR ANGIOPLASTY STENT LOWER EXTREMITY, right femoral access 04/04/2024 7:40 AM GROUND SOURCE HEAT PUMP TECHNICIAN Hospital Encounter Post Anesthesia Care Unit in [place], [place] [address] [place] [phone] Kemar Velásquez M.B.B.S. 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 The clinical documentation to support these images can be found on the encounter that produced images. us Provider Not In System IMG NON RAD IMAGING PROCE DURES Final Result [facility] NA documented in this encounter Visit Diagnoses Not on filedocumented in this encounter Additional Health Concerns Assessment Noted Time PHQ-9 Depression Total Score: 3 01/04/20 18 10:38 AM CDT documented as of this encounter Care Teams Pv Design Engineer Relationship Specialty Start Date End Date Elsewhere, Pcp PCP - General Family Medicine 01/29/20 documented as of this encounter
--- OUTSIDE RECORDS SUMMARY | 2024-03-20 10:03 | XMS_ITS | Encounter Summary ---
Author Organization [facility] Address [address] [place] [address] Care Team Providers Care Dental Hygiene Professor Name Role Phone Elsewhere, Pcp Primary Care Provider Unavailabl e Encounter Details Date Type Department Care Team (Late st Contact Info) Description 03/12/2024 7:10 AM CDT Ancillary Procedure Department of Vascular Social History Tobacco Use Types Packs/Day Years Used Date Smoking Tobacco: Former Cigarettes 1 38.9 0 05/16/1983 - 04/2022 Smokeless Tobacco: Never Alcohol Use Standard Drinks/Week Comments Not Currently 0 (1 standard drink = 0.6 oz pur e alcohol) [facility] Utilities Answer Date Recorded In the past 12 months has e [employer], gas, oil, or water [employer] threatened to shut off services in your [...] How often do you attend hoahaoism or alevism serv ices? Never 03/24/2021 Do [...] a [facility] place to live 03/11/2024 Education Answer Date Recorded What is the highest level of school you have completed or the highest degree you have received? 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/2021 8:13 PM MARINE DIESEL MECHANIC Legal Sex Male 12:04 AM MARINE DIESEL MECHANIC Gender Identity Male 08/31/2019 2:40 PM CDT Sexual Orientation Straight 08/31/2019 2: 40 PM CDT documented as of this encounter Plan of Treatment Upcoming Encounters Date Type Department Care Team (Latest Contact Info) Description 04/03/2024 11:30 AM MARINE DIESEL MECHANIC Hospital Encounter Post Anesthesia Care Unit in [place] [id number] [place] [phone] Kemar Velásquez M.B.B.S. 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 [address] [place] [phone] IR ENDOVASCULAR ANGIOPLASTY STENT LOWER EXTREMITY, right femoral access 04/04/2024 7:40 AM MARINE DIESEL MECHANIC Hospital Encounter Post Anesthesia Care Unit in [place], [place] [address] [place] [phone] Kemar Velásquez M.B.B.S. 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
--- OUTSIDE RECORDS SUMMARY | 2024-03-20 10:03 | XMS_ITS | Encounter Summary ---
Author Organization [facility] Address [address] [place] [address] Care Team Providers Care Heavy Line Technician Name Role Phone Elsewhere, Pcp Primary Care Provider Unavailabl e Encounter Details Date Type Department Care Team (Late st Contact Info) Description 03/13/2024 Orders Only Division of Nephrology and Hypertension in [place], [place] [address] [place] [address] Haseeb Menon Jr., D.O. [address] [place] [address] Social History Tobacco Use Types Packs/Day Years Used Date Smoking Tobacco: Former Cigarettes 1 38.9 0 05/16/1983 - 04/2022 Smokeless Tobacco: Never Alcohol Use Standard Drinks/Week Comments Not Currently 0 (1 standard drink = 0.6 oz pur e alcohol) [facility] Utilities Answer Date Recorded In the past 12 months has [facility] [employer] gas, oil, or water [employer] threatened to shut off services in your [...] How often do you attend judaism or zoroastrianism serv ices? Never 03/24/2021 Do [...] living situation today? I have a [facility] place to live 03/11/2024 Education Answer Date Recorded What is the highest level of school you have completed or the highest degree you have received? 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/2021 8:13 PM COMPLIANCE ADMINISTRATOR Legal Sex Male 12:04 AM COMPLIANCE ADMINISTRATOR Gender Identity Male 08/31/2019 2:40 PM CDT Sexual Orientation Straight 08/31/2019 2: 40 PM CDT documented as of this encounter Plan of Treatment Upcoming Encounters Date Type Department Care Team (Latest Contact Info) Description 04/03/2024 11:30 AM COMPLIANCE ADMINISTRATOR Hospital Encounter Post Anesthesia Care Unit in [place], [place] [address] [place] [phone] Kemar Velásquez M.B.B.S. 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 [address] [place] [phone] IR ENDOVASCULAR ANGIOPLASTY STENT LOWER EXTREMITY, right femoral access 04/04/2024 7:40 AM COMPLIANCE ADMINISTRATOR Hospital Encounter Post Anesthesia Care Unit in [place], [place] [address] [place] [phone] Kemar Velásquez M.B.B.S. 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
--- OUTSIDE RECORDS SUMMARY | 2024-03-20 10:03 | XMS_ITS | Encounter Summary ---
Author Organization [facility] Address [address] [place] [address] Care Team Providers Care Prosecuting Attorney Name Role Phone Elsewhere, Pcp Primary Care Provider Unavailabl e Encounter Details Date Type Department Care Team (Late st Contact Info) Description 03/12/2024 7:05 AM CDT Ancillary Procedure Department of Vascular Social History Tobacco Use Types Packs/Day Years Used Date Smoking Tobacco: Former Cigarettes 1 38.9 0 05/16/1983 - 04/2022 Smokeless Tobacco: Never Alcohol Use Standard Drinks/Week Comments Not Currently 0 (1 standard drink = 0.6 oz pur e alcohol) [facility] Utilities Answer Date Recorded In the past 12 months has e BAC ON TRAC, gas, oil, or water [employer] threatened to shut off services in your [...] How often do you attend lutheran or baptism serv ices? Never 03/24/2021 Do [...] have a [facility] place to live 03/11/2024 Education Answer Date Recorded What is the highest level of school you have completed or the highest degree you have received? 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/2021 8:13 PM POLARITY TESTER Legal Sex Male 12:04 AM POLARITY TESTER Gender Identity Male 08/31/2019 2:40 PM CDT Sexual Orientation Straight 08/31/2019 2: 40 PM CDT documented as of this encounter Plan of Treatment Upcoming Encounters Date Type Department Care Team (Latest Contact Info) Description 04/03/2024 11:30 AM POLARITY TESTER Hospital Encounter Post Anesthesia Care Unit in [place] [id number] [place] [phone] Kemar Velásquez M.B.B.S. 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 [address] [place] [phone] IR ENDOVASCULAR ANGIOPLASTY STENT LOWER EXTREMITY, right femoral access 04/04/2024 7:40 AM POLARITY TESTER Hospital Encounter Post Anesthesia Care Unit in [place], [place] [address] [place] [phone] Kemar Velásquez M.B.B.S. 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
--- OUTSIDE RECORDS SUMMARY | 2024-03-20 10:03 | XMS_ITS | Clinical Summary ---
Author Organization [facility] Address [address] [place] [address] Care Team Providers Care Butcher'S Assistant Name Role Phone Elsewhere, Pcp Primary Care Provider Unavailabl e Source Comments Patient records contain information from all sites at [facility]. For routine questions regarding patient records, call [phone] during business hours, M-F 8:00 AM - 5:00 PM Central Time. Record requests for emergency care only can be directed to [phone] at any time.[facility] Allergies Active Allergy Reactions Criticality Noted Date Comments Gabapentin Other (see comments) Medium 08/04/2020 Dizzy, memory issue Morphine Itching,Rash Medium 02/14/2012 itchy Pregabalin Anaphylaxis High 02/16/2017 swell Phgebao-Mzg-Syx Reductase Inhibitors Myalgia Low 02/13/2014 Medications DULoxetine [...] daily. States taking 27 mg daily Active pramipexole (MIRAPEX) 0.5 mg tablet Take 0.5 mg by mouth at bedtime. Active acetaminophen (TYLENOL) 500 mg tablet Take 2 tablets (1,000 mg total) by mouth every 8 (eight) hours as needed (neuropathy). 03/25/20 21 Active minocycline (MINOCIN,DYNAC IN) 100 mg capsule TAKE ONE CAPSULE BY MOUTH TWICE A DAY FOR 10 DAYS AND THEN TAKE ONE CAPSULE BY MOUTH EVERY DAY TEST LEAD 01/15/20 22 Active allopurinoL (ZYLOPRIM) 100 mg tablet Take 100 mg by mouth daily. Active aspirin [address] tablet Take 81 mg by mouth daily. Active ergocalciferol (Vitamin D2) 50,000 Unit capsule Take 50,000 Units by mouth once a week. Active oxyCODONE (ROXICODONE) 5 mg immediate release tabletIndicati ons:Acute Pain Exception Take 1 tablet (5 mg total) by mouth every 6 (six) hours as needed for severe pain or score 7-10 of 10 Indication: Acute Pain Exception. for pain 6 tablet 02/17/20 23 Active blood-glucose sensor device 11/26/19 22 Active UNABLE TO FIND Insulin pump Ac tive sennosides-doc usate sodium (SENOKOT-S) 8.6-50 mg per tablet Take 1 tablet by mouth 2 (two) times a day. 180 tablet 3 03/21/20 23 024 Active furosemide (LASIX) 80 mg tablet Take 2 tablets (160 mg total) by mouth 2 (two) times a day. 360 tablet 3 04/26/20 23 Active calcium acetate,phosph at bind, (PHOSLO) 667 mg (169 mg calcium) capsule Take 2 capsules (1,334 mg total) by mouth 3 (three) times a day with meals. 540 capsule 3 06/17/19 24 025 Active lisinopriL (PRINIVIL,ZEST RIL) 40 mg tablet Take 0.5 tablets (20 mg total) by mouth daily. Patient reports it was decreased by primary physician about 04/2020 per patient report. 45 tablet 3 09/13/19 24 025 Active atorvastatin (Lipitor) 20 mg tablet Take 20 mg by mouth. 03/02/20 23 Active blood-glucose meter,continuo us by other route. 05/17/19 24 Active blood-glucose sensor device by other route. 03/11/20 23 Active doxepin (SINEquan) 25 mg capsule Take 25 mg by mouth 2 (two) times a day. Active methocarbamoL (Robaxin) 750 mg tablet Take 750 mg by mouth 3 (three) times a day as needed for muscle spasms. Active multivitamin renal failure (Dialyvite) 50-0.5 mg per tablet Take 1 tablet by mouth daily. Active calcium citrate (Calcitrate) 950 mg (200 mg calcium) tablet Take by mouth daily with morning meal. Active carvediloL (Coreg) 25 mg tablet Take 2 tablets (50 mg total) by mouth 2 (two) times a day with meals. 360 tablet 3 03/13/20 24 025 Active atorvastatin (LIPITOR) 20 mg tablet Take 1 tablet (20 mg total) by mouth at bedtime. 90 tablet 3 07/25/19 20 024 Discontinued(Du plicate order) carvediloL (COREG) 25 mg tablet Take 2 tablets (50 mg total) by mouth 2 (two) times a day with meals. 03/25/20 21 024 Discontinued doxepin (SINEquan) 10 mg capsule TAKE ONE CAPSULE BY MOUTH EVERY DAY AT BEDTIME 90 capsule 3 05/28/19 22 024 Discontinued(Do se adjustment) calcium citrate (CALCITRATE) 950 mg (200 mg calcium) tablet TAKE FOUR TABLETS BY MOUTH AT BEDTIME 300 tablet 3 03/14/20 23 024 Discontinued allopurinol 100 mg oral capsule Take 100 mg by mouth daily. 09/16/19 23 024 Discontinued(Du plicate order) Hospital, Clinic, or Other Facility Administered Medication Ordered Dose Route Frequency Start Date End Date Status lidocaine 2 % gel 1 Application (Xylocaine) 1 Application top As needed 03/12/2024 4 Ended Active Problems Patient Care Coordination No te Formatting of this note migh t be different from the original. 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 Right 03/12/2024 Sleep Apnea 04/15/2023 Abrasion Leg Initial Left [...] 04/21/2018 Restless Leg Syndrome 01/12/2018 Atherosclerosis Of [place] Ar teries Of Extremities With Intermittent Claudication Right Leg 08/08/2017 Hyperlipidemia 07/22/2017 Ulcer Leg Left 04/19/2017 Ulcer Toe Left 04/19/2017 Atherosclerosis Of [place] Ar teries Of Left Leg With Ulceration Of Unspecified Site 04/19/2017 Peripheral Arterial Disease 02/16/2017 Hypertension NOS 02/16/2017 Hypertensive Chronic Kidney Disease With Stage 1 Through Stage 4 Chronic Kidney Disease, Or Unspecified Chronic Kidney Disease 09/23/2016 Overview (10/05/2016): Hypertension (HTN) And CKD Stage 1-4 [facility] Use Of Insulin Active 09/23/2016 Overview (10/05/2016): Optometrist Use Of Insulin Active Depression Major Recurrent Moderate 06/22/2016 Overview (10/05/2016): Depression Major Recurrent Moderate Diabetes Mellitus Type 2 Wit h Other Circulatory Complication 06/22/2016 Overview (10/05/2016): DM2 Peripheral Neuropathy Uncontrolled Encounters Date Type Department Care Team Description 03/20/2024 Clinical Communication Division of Vascular and Endovascular Surgery in [place], [place] [address] [place] [address] Kemar Velásquez M.B.B.S. 03/13/2024 Documentation Division of Nephrology and Hypertension in [place], [place] [address] [place] [phone] Haseeb Menon Jr., D.O. 03/13/2024 Orders Only Division of Nephrology and Hypertension in [place], [place] [address] [place] [address] Haseeb Menon Jr., EstivenOFei 03/12/2024 10:40 AM CDT Comprehensive Visit Division of Vascular and Endovascular Surgery in [place], [place] [address] [place] [address] Kemar Velásquez M.B.B.S. 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 Wound Foot Open Subsequent Right (Primary Dx); Peripheral Arterial Disease (HCC); Neuropathy Peripheral; Wound Foot Open Subsequent Left; Diabetes Mellitus Type 2 With Other Circulatory Complication (HCC) Discharge Disposition: Home or Self Care 03/12/2024 7:10 AM CDT Ancillary Procedure Department of Vascular 03/12/2024 7:05 AM CDT Ancillary Procedure Department of Vascular 03/12/2024 7:00 AM CDT Ancillary Procedure Department of Vascular 03/12/2024 6:15 AM CDT Ancillary Procedure Department of Vascular 03/12/2024 6:10 AM CDT Ancillary Procedure Department of Vascular 03/09/2024 6:25 PM CDT - 03/09/2024 11:59 PM CDT Hospital Encounter Department of Radiology, [place], [place] [address] [place] [address] Jayjay Pak P.A.-CFei Follow Up Examination Status Post Surgery; Peripheral Arterial Disease (HCC); Wound Foot Open Subsequent Left; Wound Foot Open Subsequent Right Discharge Disposition: Home or Self Care 03/09/2024 2:02 PM CDT - 03/09/2024 6:24 PM CDT Hospital Encounter Department of Radiology, [facility] in [place], [place] [address] [place] [address] Jayjay Pak P.A.-CFei Follow Up Examination Status Post Surgery; Peripheral Arterial Disease (HCC); Wound Foot Open Subsequent Left; Wound Foot Open Subsequent Right Discharge Disposition: Home or Self Care 03/07/2024 10:12 AM CDT - 03/07/2024 11:59 PM CDT Hospital Encounter Department of Radiology in [place], [place] [address] [place] [address] Jayjay Pak P.A.-William. Peripheral Arterial Disease (HCC); Wound Foot Open Subsequent Left; Wound Foot Open Subsequent Right Discharge Disposition: Home or Self Care 03/07/2024 Orders Only Department of Vascular Medicine in [place], [place] [address] [place] [phone] Jayjay Pak P.A.-C. 03/06/2024 Orders Only Department of Vascular Medicine in [place], [place] [address] [place] [phone] Jayjay Pak P.A.-Jennifer Peripheral Arterial Disease (HCC) (Primary Dx); Wound Foot Open Subsequent Left; Wound Foot Open Subsequent Right 03/05/2024 3:00 PM CDT Office Visit Department of Vascular Medicine in [place], [place] [address] [place] [phone] Jayjay Pak P.A.-CFei Follow Up Examination Status Post Surgery (Primary Dx); Peripheral Arterial Disease (HCC); Wound Foot Open Subsequent Left; Wound Foot Open Subsequent Right 03/05/2024 11:19 AM CDT - 03/05/2024 11:59 PM CDT Hospital Encounter Department of Radiology, [place], [place] [address] [place] [phone] Jayjay Pak P.AFei-CFei Follow Up Examination Status Post Surgery; Peripheral Arterial Disease (HCC) Discharge Disposition: Home or Self Care 03/05/2024 11:00 AM CDT - 03/05/2024 11:18 AM CDT Hospital Encounter Department of Radiology, [facility] in [place], [place] [address] [place] [address] Jayjay Pak P.A.-CFei Follow Up Examination Status Post Surgery; Peripheral Arterial Disease (HCC) Discharge Disposition: Home or Self Care 03/05/2024 7:30 AM CDT - 03/05/2024 10:59 AM CDT Hospital Encounter Department of Vascular Medicine in [place], [place] [address] [place] [phone] Jayjay Pak P.A.-C. Follow Up Examination Status Post Surgery; Peripheral Arterial Disease (HCC) Discharge Disposition: Home or Self Care 02/23/2024 Refill Division of Nephrology and Hypertension in [place], [place] [address] [place] [phone] Onesimo Rodriguez M.D. Med Refill 02/11/2024 Refill Division of Nephrology and Hypertension in [place], [place] [address] [place] [phone] Haseeb Menon Jr., D.O. Med Refill 01/14/2024 Refill Division of Nephrology and Hypertension in [place], [place] [address] [place] [phone] Onesimo Rodriguez M.D. Med Refill 01/05/2024 Orders Only Department of Vascular Medicine in [place], [place] [address] [place] [phone] Jayjay Pak P.A.-C. Follow Up Examination Status [...] drink = 0.6 oz pur e alcohol) [facility] Utilities Answer Date Recorded In the past 12 months has e [employer], gas, oil, or water [employer] threatened to shut off services in your [...] 0 10/20/2018 [facility] Occupational Stress Questionnaire Answer Date [...] your living situation today? I have a [facility] place to live 03/11/2024 Education Answer Date Recorded What is the highest level of school you have completed or the highest degree you have received? 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/2021 8:13 PM NEWSPAPER DELIVERY COUNSELOR Legal Sex Male 12:04 AM NEWSPAPER DELIVERY COUNSELOR Gender Identity Male 08/31/2019 2:40 PM CDT Sexual Orientation Straight 08/31/2019 2: 40 PM CDT Last Filed Vital Signs Vital Sign Reading Time Taken Comments Blood Pressure 231/79 03/12/2024 7:50 AM CDT Pulse 93 03/12/2024 7:50 AM CDT Temperature 36.5 ??C (97.7 ??F) 03/12/2024 7:50 AM CD T Respiratory Rate 14 02/16/2023 4:35 PM CDT Oxygen Saturation 98% 02/16/2023 5:45 PM CDT Inhaled Oxygen Concentration - - Weight 89.3 kg (196 lb 13.9 oz) 03/12/2024 7:50 AM CDT Height 175.4 cm (5' 9.06) 03/05/2024 2:59 PM CD T Body Mass Index 29.03 03/05/2024 2:59 PM CDT Plan of Treatment Upcoming Encounters Date Type Department Care Team (Latest Contact Info) Description 04/03/2024 11:30 AM NEWSPAPER DELIVERY COUNSELOR Hospital Encounter Post Anesthesia Care Unit in [place], [place] [address] [place] [address] Kemar Velásquez M.B.B.S. 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 [address] [place] [phone] IR ENDOVASCULAR ANGIOPLASTY STENT LOWER EXTREMITY, right femoral access 04/04/2024 7:40 AM NEWSPAPER DELIVERY COUNSELOR Hospital Encounter Post Anesthesia Care Unit in [place], [place] [address] [place] [phone] Kemar Velásquez M.B.B.S. [address] [place] [phone] Peripheral Arterial Disease (HCC); 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) 04/04/2024 7:40 AM NEWSPAPER DELIVERY COUNSELOR - 04/04/2024 11:24 AM NEWSPAPER DELIVERY COUNSELOR Surgery [facility] [address] [place] [phone] Kemar Velásquez M.B.B.S. 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) 04/04/2024 7:40 AM NEWSPAPER DELIVERY COUNSELOR Health Maintenance Due Date Last Done Comments CT Colonography 1950 Cologuard 1950 Depression Monitoring (PHQ-9) 1950 Hepatitis B Vaccines (1 of 3 - Risk 3-dose series) 2012 RSV vaccine - (32-36 weeks) or 60+ years (1 - Risk 60-74 years 1-dose series) 2012 Zoster Vaccines (1 of 2) 03/29/2012 02/02/2012 Dilated Eye Exam 08/19/2017 08/19/2016 FIT 08/24/2017 08/24/2016 Diabetic Office Visit with Foot Exam 07/22/2018 07/22/2017, 06/22/2016 Diabetes Education 05/01/2019 05/01/2018, 09/23/2016 Lung Cancer Screening 05/07/2021 05/07/2020 Depression Monitoring (PHQ-9 for quality tracking) 05/16/2023 Hemoglobin A1C 05/28/2023 11/25/2022, 08/15, 05/06/2022, Additional history exists COVID-19 Vaccine ( season) 2024 10/27/2021, 04/02/2021, 08/09/2020, Additional history exists Potassium Level 02/18/2024 02/17/2023, 10/0 08/2022, 01/11/2023, Additional history exists Sodium Level 02/18/2024 02/17/2023, 10/0 08/2022, 01/11/2023, Additional history exists Urine Albumin 02/18/2024 02/17/2023, 08/15, 11/04/2021, Additional history exists Office Visit for Blood Pressure Check / Re-check 06/12/2024 03/12/2024 Creatinine Level (Kidney Function Test) 03/09/2025 03/09/2024, 02/17/2023, 02/16/2023, Additional history exists Lipid (Cholesterol) Screening 02/10/2026 02/10/2021, 07/26/2017, 09/20/2016, Additional history exists DTaP,Tdap,and Td Vaccines (3 - Td or Tdap) 08/16/2026 08/16/2016, 08/16/2016, 03/24/2007, Additional history exists Colonoscopy 05/12/2032 05/12/2022, 08/14 (Performed elsewhere) Colorectal Cancer Screening 05/12/2032 Pneumococcal vaccine (65+ years) Completed 04/24/2018, 04/11/2017, 02/14/2012, Additional history exists Abdominal Aortic Aneurysm (AAA) Screen Completed 05/27/2022, 05/27/2022, 03/15/2018, Additional history exists Hepatitis C Screening Completed 02/17/2023 , 02/14/2023, 11/17/2022 Influenza Vaccine Completed 02/27/2024, , 03/17/2022, Additional history exists Fall Risk Screen (Annual) Completed 03/12/2024 IPV Vaccines Aged Out No longer eligi ble based on patient's age to complete this topic Medical Devices Implanted Type Area Thermal Cutting Machine Operator Device Identifier Shelf Expiration Date Model / Serial / Lot Patch Vasc Bovine.08cm X 8cm - Flores [id number] Implanted:Qty: 1 on 04/04/2017 Mesh or Patch Other/Legacy - See Implant Description Synovis Description:Device Manufactu rer - Synovi. Body Location - Other. Vascular. Device Status Text - [id number]. Ocular Lens-10/29/2007 Implanted:10/28 by Nato Dougherty, JULIÁN, C.N.P., R.N. 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 Device Status Text - [id number]. Stent Vbx [id number] - Flores [id number] Implanted:Qty: 1 on 03/04/2017 Vascular Graft Other/Legacy - See Implant Description [place] Description:Device Manufactu rer - [employer] Body Location - Other. n/a. Device Status Text - [id number]. Stent Vbx [id number] - Flores [id number] Implanted:Qty: 1 on 03/04/2017 Vascular Graft Other/Legacy - See Implant Description [place] Description:Device Manufactu rer - [employer] [place] [employer] Body Location - Other. n/a. Device Status Text - [id number]. Stent Zilver Ptx 6mm X 40mm - Flores [id number] Implanted:Qty: 1 on 04/04/2017 Vascular Stent Other/Legacy - See Implant Description [employer] [place] [facility] Description:Device Manufactu rer - [employer] [place] [employer]. Body Location - Other. Left. Device Status Text - [id number]. Stent Zilver Ptx 6mm X 60mm - Flores [id number] Implanted:Qty: 1 on 04/04/2017 Vascular Stent Other/Legacy - See Implant Description Bloomz Description:Device Manufactu rer - [employer] [place] [employer]. Body Location - Other. Left. Device Status Text - [id number]. Stent Zilver Ptx 6mm X 80mm - Flores [id number] Implanted:Qty: 1 on 08/31/2017 Vascular Stent Right: Other/Legacy - See Implant Description Bloomz / [id number] / Description:Device Manufactu rer - [employer] [place] [employer]. Body Location - Right. Device Status Text - [id number]. Stent Zilver Ptx 6mm X 40mm - Flores [id number] Implanted:Qty: 1 on 08/31/2017 Vascular Stent Right: Other/Legacy - See Implant Description Bloomz / [id number] / Description:Device Manufactu rer - [employer] [place] [employer]. Body Location - Right. Device Status Text - [id number]. Stnt Innova Otw [id number] - [id number] Implanted:Qty: 1 on 04/18/2018 by Kemar Velásquez M.B.B.S. at [facility] Vascular Stent [employer] 05/23/2020 [id number] / / [id number] Stnt Innova Otw [id number] - [id number] Implanted:Qty: 1 on 05/11/2019 by Kemar Velásquez M.B.B.S. at [facility] Vascular Stent Left: Leg [employer] 09/05/2020 [id number] / / [id number] Procedures Procedure Name Priority Date/Time Associated Diagnosis Comments VASCULAR IMAGE EXAM Routine 03/12/2024 7:10 AM CDT VASCULAR IMAGE EXAM Routine 03/12/2024 7:05 AM CDT VASCULAR IMAGE EXAM Routine 03/12/2024 7:00 AM CDT VASCULAR IMAGE EXAM Routine 03/12/2024 6:15 AM CDT VASCULAR IMAGE EXAM Routine 03/12/2024 6:10 AM CDT MR FOOT RIGHT WITHOUT AND WITH IV CONTRAST RAD - Routine (most inpatients and all outpatients) 03/09/2024 8:28 PM CDT Follow Up Examination Status Post Surgery Peripheral Arterial Disease (HCC) Wound Foot Open Subsequent Left Wound Foot Open Subsequent Right CT ABD PELVIS ANGIO AND LOWER EXT RUNOFF BILAT WITH IV CONTRAST RAD - Routine (most inpatients and all outpatients) 03/09/2024 3:50 PM CDT Follow Up Examination Status Post Surgery Peripheral Arterial Disease (HCC) Wound Foot Open Subsequent Left Wound Foot Open Subsequent Right CREATININE, POCT, B Routine 03/09/2024 3:06 PM CDT CREATININE, POCT, B Routine 03/09/2024 3:06 PM CDT DX FOOT BILATERAL 3+ VIEWS RAD - Routine (most inpatients and all outpatients) 03/07/2024 10:34 AM CDT Peripheral Arterial Disease (HCC) Wound Foot Open Subsequent Left Wound Foot Open Subsequent Right US LOWER EXTREMITY ARTERIES BILATERAL RAD - Routine (most inpatients and all outpatients) 03/05/2024 1:02 PM CDT Follow Up Examination Status Post Surgery Peripheral Arterial Disease (HCC) US AORTA ILIAC ARTERIES BILATERAL WITH DOPPLER RAD - Routine (most inpatients and all outpatients) 03/05/2024 12:52 PM CDT Follow Up Examination Status Post Surgery Peripheral Arterial Disease (HCC) ECG Routine 03/05/2024 11:03 AM CDT Follow Up Examination Status Post Surgery Peripheral Arterial Disease (HCC) LOWER EXTREMITY ARTERIAL (MIMI) - TCPO2 (WOUND) Routine 03/05/2024 8:54 AM CDT Follow Up Examination Status Post Surgery Peripheral Arterial Disease (HCC) HCV AB SCRN W/REFLEX TO HCV [...] Renal Disease Acidosis Metabolic Hyperchloremic Atherosclerosis Of [place] Arteries Of Extremities With Intermittent Claudication Right [...] Recently Relevant to Health Maintenance Results * Leg-Vascular Image Exam (03/12/2024 7:10 AM CDT) Only the most recent of5 resultswithin the time period is included. 03/12/2024 6:56 AM CDT Narrative IIMS - 03/12/2024 8:59 AM CDT This order has been created and auto-finalized to support the import of images acquired without order. The clinical documentation to support these images can be found on the encounter that produced images. us Provider Not In System IMG NON RAD IMAGING PROCE DURES Final Result IIMS NA * MR Foot Right without and with IV Contrast (03/09/2024 8:28 PM CDT) Anatomical Region Laterality Modality Lower Extremity, Foot, Muscu loskeletal RST LOS, Musculoskeletal ARZ LOS, Muskuloskeletal FLA LOS Right Magne tic Resonance Impressions 03/10/2024 12:04 PM CDT 1. Nonspecific reactive inflammatory changes about the first MTP with enhancing bone marrow edema/osteitis, moderate synovitis and no large approachable effusion. The aforementioned changes could be degenerative, infectious or crystalline in nature. 2. However there is a small plantar infectious/inflammatory first MTP ulceration without clear penetration into the joint. Correlate clinically if the ulcer probes deep, as if this does probe deep, then the aforementioned inflammatory findings about the first MTP joint could have a contribution from sequelae of septic arthritis. 3. No pedro intramedullary osteomyelitis. No soft tissue abscess. No infectious tenosynovitis. 4. Juxta-articular/marginal erosions about the first MTP joint most pronounced about the medial first MTP joint could be sequelae of gouty arthropathy. Erosions from septic arthritis would have a similar appearance. Narrative 03/10/2024 12:04 PM CDT EXAM: ??MR FOOT RIGHT WITHOUT AND WITH IV CONTRAST COMPARISON: ??Radiographs 03/07/2024 and 03/10/2017 FINDINGS: ?? Infectious/inflammatory plantar first MTP soft tissue ulceration involving the cutaneous tissues with mild extension into the subcutaneous tissues (series 12 images 27-32 and series 18 images 27-30). Local probable cellulitis with increased soft tissue thickening and enhancement. Possible small foci of local soft tissue gas as well without any significant tracking soft tissue gas otherwise. No soft tissue abscess. No infectious tenosynovitis. The base of the ulceration comes within 1.5 mm of the traversing FHL. The ulceration is not definitively penetrating into the first MTP joint and there is no discrete well-defined deep tract appreciated. However a tiny penetrating enhancing tract along the plantar aspect extending to the plantar first MTP joint capsule is difficult to include or exclude (series 16 images 30-32). Correlate clinically if this probes to bone Chronic appearing fragmentation and displacement of the first MTP medial sesamoid with local irregularities about the plantar medial joint capsule, volar plate and intersesamoid ligament. Advanced first MTP arthritis with advanced joint space narrowing with subchondral sclerosis and cystic change. Hallux valgus. Chronic displaced fracture fragment about the lateral aspect of the first MTP region. There is no convincing evidence for pedro intramedullary osteomyelitis about the first MTP joint. There are nonspecific reactive changes about the first MTP with bone marrow edema, enhancing osteitis, cysts and periarticular erosions. The periarticular erosions have a juxta-articular morphology which can be seen with sequelae of crystalline arthropathy such as gout. However on prior CT 03/09/2024, there were no areas of mineralization appreciated. Therefore the periarticular erosions could be from treated gout as patient does have this diagnosis. An acute gout flare is possible but felt to be less likely given no mention of this in the clinical history. Dual-energy CT may or may not be beneficial especially given the presumed lack of symptoms and no mineralization on recent single energy CT. DISCUSSION: Ultimately the imaging findings are complex and may be multifactorial. There certainly is a component of inflammatory change about the first MTP with likely contribution from osteoarthritis and questionable contribution from crystalline arthritis with periarticular/juxa-articular erosions as detailed. ??Dual-energy CT may or may not be beneficial given the presumed lack of mentioned symptoms in the clinical notes and no mineralization on recent single energy CT. There is a small plantar infectious/inflammatory first MTP ulceration but without clear penetration into the first MTP joint. However as detailed in the body report, a tiny tract would be impossible to include or exclude. Hence, if the ulceration does probe deep, the inflammatory changes described in the body of the report about the first MTP would have similar and parallel imaging findings which can be seen with a component of septic arthritis No soft tissue abscess. No convincing evidence for pedro intramedullary osteomyelitis. 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 Mild to moderate second MTP enhancing synovitis. Partial amputation of the third and fourth toes at the level of the distal metatarsals. Procedure Note Tim Sr M.D. - 03/10/2024 EXAM: MR FOOT RIGHT WITHOUT AND WITH IV CONTRAST COMPARISON: Radiographs 03/07/2024 and 03/10/2017 FINDINGS: Infectious/inflammatory plantar first MTP soft tissue ulceration involvingthe cutaneous tissues with mild extension into the subcutaneous tissues(series 12 images 27-32 and series 18 images 27-30). Local probablecellulitis with increased soft tissue thickening and enhancement. Possible small foci of local soft tissue gasas well without any significant tracking soft tissue gas otherwise. Nosoft tissue abscess. No infectious tenosynovitis. The base of theulceration comes within 1.5 mm of the traversing FHL. The ulceration is not definitively penetrating into the first MTP jointand there is no discrete well-defined deep tract appreciated. However a tiny penetrating enhancing tract along the plantar aspectextending to the plantar first MTP joint capsule is difficult to includeor exclude (series 16 images 30-32). Correlate clinically if this probesto bone Chronic appearing fragmentation and displacement of the first MTP medialsesamoid with local irregularities about the plantar medial joint capsule,volar plate and intersesamoid ligament. Advanced first MTP arthritis withadvanced joint space narrowing with subchondral sclerosis and cystic change. Hallux valgus. Chronicdisplaced fracture fragment about the lateral aspect of the first MTPregion. There is no convincing evidence for pedro intramedullary osteomyelitisabout the first MTP joint. There are nonspecific reactive changes about the first MTP with bonemarrow edema, enhancing osteitis, cysts and periarticular erosions. Theperiarticular erosions have a juxta-articular morphology which can be seenwith sequelae of crystalline arthropathy such as gout. However on prior CT 03/09/2024, there were noareas of mineralization appreciated. Therefore the periarticular erosionscould be from treated gout as patient does have this diagnosis. An acutegout flare is possible but felt to be less likely given no mention of this in the clinical history.Dual-energy CT may or may not be beneficial especially given the presumedlack of symptoms and no mineralization on recent single energy CT. DISCUSSION: Ultimately the imaging findings are complex and may be multifactorial. There certainly is a component of inflammatory change about the first MTPwith likely contribution from osteoarthritis and questionable contributionfrom crystalline arthritis with periarticular/juxa-articular erosions asdetailed. Dual-energy CT may or may not be beneficial given the presumed lack of mentioned symptoms inthe clinical notes and no mineralization on recent single energy CT. There is a small plantar infectious/inflammatory first MTP ulceration butwithout clear penetration into the first MTP joint. However as detailed inthe body report, a tiny tract would be impossible to include or exclude.Hence, if the ulceration does probe deep, the inflammatory changes described in the body of the reportabout the first MTP would have similar and parallel imaging findings whichcan be seen with a component of septic arthritis No soft tissue abscess. No convincing evidence for pedro intramedullaryosteomyelitis. OTHER: Advanced hypertrophic naviculocuneiform arthritis with localenhancing inflammatory cysts/erosions and synovitis. Mild to moderatesecond MTP enhancing synovitis. Partial amputation of the third and fourthtoes at the level of the distal metatarsals. IMPRESSION: 1. Nonspecific reactive inflammatory changes about the first MTP withenhancing bone marrow edema/osteitis, moderate synovitis and no largeapproachable effusion. The aforementioned changes could be degenerative,infectious or crystalline in nature. 2. However there is a small plantar infectious/inflammatory first MTPulceration without clear penetration into the joint. Correlate clinicallyif the ulcer probes deep, as if this does probe deep, then theaforementioned inflammatory findings about the first MTP joint could have a contribution from sequelae of septicarthritis. 3. No pedro intramedullary osteomyelitis. No soft tissue abscess. Noinfectious tenosynovitis. 4. Juxta-articular/marginal erosions about the first MTP joint mostpronounced about the medial first MTP joint could be sequelae of goutyarthropathy. Erosions from septic arthritis would have a similarappearance. us Jayjay Pak P.A.-C. IMG MRI PROCEDURES Final Result * CT Abd Pelvis Angio and Lower Ext Runoff Bilat with IV Contrast (03/09/2024 3:50 PM CDT) Anatomical Region Laterality Modality Abdomen, Pelvis, Cardiovascu lar RST LOS, Vascular Interventional ARZ LOS, Vascular Interventional FLA LOS, Procedural, Vascular Interventional NWWI LOS Bilateral Computed Tomography, Compute d Tomography 03/09/2024 3:37 PM CDT Impressions 03/09/2024 5:54 PM CDT 1. Diffuse atherosclerotic disease throughout the abdominal aorta with mild stenosis distally. 2. Severe stenosis at the origin of the right internal iliac artery and moderate stenosis at the origin of the right external iliac artery. 3. Patent left common iliac artery stent. 4. Multifocal severe stenoses in the bilateral superficial femoral arteries. Moderate stenosis within the right superficial femoral artery stent. Patent left superficial femoral artery stent without stenosis. 5. Severe stenosis in the distal left popliteal artery. 6. Diffusely diseased tibial arteries bilateral appear patent, however somewhat limited evaluation. Narrative 03/09/2024 5:54 PM CDT EXAM: ??CT ABD PELVIS ANGIO AND LOWER EXT RUNOFF BILAT WITH IV CONTRAST Including 3D image post-processing with or without AI assistance. COMPARISON: ??Ultrasound dated 03/05/[address] dated 03/15/2018 FINDINGS: VASCULAR FINDINGS: ABDOMINAL AORTA: Normal abdominal aorta caliber. Diffuse mixed calcified and noncalcified atherosclerotic disease throughout the abdominal aorta. At the level of the infrarenal aorta near the bifurcation, mixed calcified and noncalcified plaque causes mild stenosis of the infrarenal aorta (for example series 5, image 217). The atherosclerotic plaque at the level of the infrarenal aorta is circumferential. VISCERAL ARTERIES: Celiac artery: ??Moderate stenosis of the celiac artery near the origin by mixed calcified and noncalcified plaque (for example series 7, image 75). Superior mesenteric artery: ??Calcified plaque at the origin of the superior mesenteric artery causing mild stenosis. Inferior mesenteric artery: ??At least mild stenosis at the origin. RENAL ARTERIES: Right renal arteries: ??Single right renal artery. Predominantly calcified plaque is seen at the origin and in the proximal artery causing minimal stenosis. Left renal arteries: ??Single left renal artery with densely calcified plaque at the origin causing mild stenosis. Note that there is early branching of the left renal artery. ILIAC ARTERIES: Right common iliac artery: ??Diffuse densely calcified plaque. Diffuse moderate stenosis. Right internal iliac artery: ??Severe stenosis at the origin of the right internal iliac artery by mixed calcified and noncalcified plaque. Right external iliac artery: ??At least moderate stenosis at the origin, possibly severe. Diffuse calcified plaque causing multifocal mild stenoses. Left common iliac artery: ??Stented proximally. The stent appears widely patent without significant stenosis. Left internal iliac artery: ??At least mild stenosis at the origin with diffuse calcified plaque distally. Left external iliac artery: ??At least mild stenosis at the origin. Stent in the midportion which appears widely patent without significant stenosis. Noncalcified plaque distal to the stent causes at least mild stenosis. RIGHT LEG: Right common femoral artery: ??Mixed calcified and noncalcified plaque causes mild stenosis. Right profunda femoral artery: ??Patent with mild stenosis at the origin. Right superficial femoral artery: ??Severe stenosis in the mid superficial femoral artery proximal to the stent (series 5, image 471). Within the stents, there is mural thrombus causing moderate stenosis (series 5, image 526). Moderate to severe stenosis distal to the stent in the distal right superficial femoral artery (series 5, image 590). Right popliteal artery: ??Scattered plaque causing multifocal mild stenoses Tibial arteries: The anterior tibial artery is likely mildly narrowed at the origin and diffusely disease distally. ??The anterior tibial artery is difficult to evaluate, however appears patent supplying the dorsalis pedis artery. The posterior tibial artery is patent to the level the foot supplying the plantar arch, however diffusely diseased. The peroneal artery appears to be patent to the level the ankle, however diffusely diseased. LEFT LEG: Left common femoral artery: ??Patent without significant stenosis. Left profunda femoral artery: ??Patent without significant stenosis. Left superficial femoral artery: ??Moderate stenosis at the origin (series 5, image 369). Focal severe stenosis in the mid left SFA (series 5, image 473) over short segment the level of the stented SFA. The stented SMA appears patent without significant stenosis, however just distal to the stent, there is severe stenosis (series 5, image 573) and additional severe stenosis in the very distal SFA (series 5, image 615). Left popliteal artery: ??Multifocal mild stenoses throughout the popliteal artery with focal severe stenosis distally (series 5, image 769). Tibial arteries: Diffusely diseased tibial arteries appear patent within limits examination. Patent dorsalis pedis artery and the entire arch. ADDITIONAL FINDINGS: No suspicious focal hepatic lesion. Small amount of perisplenic and perihepatic free fluid. The spleen, adrenals and gallbladder are unremarkable. Fatty atrophy of the pancreas. No hydronephrosis. The small and large bowel are nondilated. Peritoneal dialysis catheter is seen in the right lower quadrant with a small amount of fluid in the pelvis. No lymphadenopathy in the abdomen or pelvis. Fat-containing umbilical hernia. Procedure Note Diana Denis M.D., Ph.D. - 03/09/2024 EXAM: CT ABD PELVIS ANGIO AND LOWER EXT RUNOFF BILAT WITH IV CONTRAST Including 3D image post-processing with or without AI assistance. COMPARISON: Ultrasound dated 03/05/[address] dated 03/15/2018 FINDINGS: VASCULAR FINDINGS: ABDOMINAL AORTA: Normal abdominal aorta caliber. Diffuse mixed calcified and noncalcifiedatherosclerotic disease throughout the abdominal aorta. At the level ofthe infrarenal aorta near the bifurcation, mixed calcified andnoncalcified plaque causes mild stenosis of the infrarenal aorta (for example series 5, image 217). Theatherosclerotic plaque at the level of the infrarenal aorta iscircumferential. VISCERAL ARTERIES: Celiac artery: Moderate stenosis of the celiac artery near the origin bymixed calcified and noncalcified plaque (for example series 7, image75). Superior mesenteric artery: Calcified plaque at the origin of thesuperior mesenteric artery causing mild stenosis. Inferior mesenteric artery: At least mild stenosis at the origin. RENAL ARTERIES: Right renal arteries: Single right renal artery. Predominantly calcifiedplaque is seen at the origin and in the proximal artery causing minimalstenosis. Left renal arteries: Single left renal artery with densely calcifiedplaque at the origin causing mild stenosis. Note that there is earlybranching of the left renal artery. ILIAC ARTERIES: Right common iliac artery: Diffuse densely calcified plaque. Diffusemoderate stenosis. Right internal iliac artery: Severe stenosis at the origin of the rightinternal iliac artery by mixed calcified and noncalcified plaque. Right external iliac artery: At least moderate stenosis at the origin,possibly severe. Diffuse calcified plaque causing multifocal mildstenoses. Left common iliac artery: Stented proximally. The stent appears widelypatent without significant stenosis. Left internal iliac artery: At least mild stenosis at the origin withdiffuse calcified plaque distally. Left external iliac artery: At least mild stenosis at the origin. Stentin the midportion which appears widely patent without significantstenosis. Noncalcified plaque distal to the stent causes at least mildstenosis. RIGHT LEG: Right common femoral artery: Mixed calcified and noncalcified plaquecauses mild stenosis. Right profunda femoral artery: Patent with mild stenosis at the origin. Right superficial femoral artery: Severe stenosis in the mid superficialfemoral artery proximal to the stent (series 5, image 471). Within thestents, there is mural thrombus causing moderate stenosis (series 5, [id number]). Moderate to severe stenosis distal to the stent in the distal right superficial femoral artery (series5, image 590). Right popliteal artery: Scattered plaque causing multifocal mildstenoses Tibial arteries: The anterior tibial artery is likely mildly narrowed atthe origin and diffusely disease distally. The anterior tibial artery isdifficult to evaluate, however appears patent supplying the dorsalis pedisartery. The posterior tibial artery is patent to the level the foot supplying the plantar arch, howeverdiffusely diseased. The peroneal artery appears to be patent to the levelthe ankle, however diffusely diseased. LEFT LEG: Left common femoral artery: Patent without significant stenosis. Left profunda femoral artery: Patent without significant stenosis. Left superficial femoral artery: Moderate stenosis at the origin (series5, image 369). Focal severe stenosis in the mid left SFA (series 5, [id number]) over short segment the level of the stented SFA. The stented SMAappears patent without significant stenosis, however just distal to the stent, there is severe stenosis(series 5, image 573) and additional severe stenosis in the very distalSFA (series 5, image 615). Left popliteal artery: Multifocal mild stenoses throughout the poplitealartery with focal severe stenosis distally (series 5, image 769). Tibial arteries: Diffusely diseased tibial arteries appear patent withinlimits examination. Patent dorsalis pedis artery and the entire arch. ADDITIONAL FINDINGS: No suspicious focal hepatic lesion. Small amount of perisplenic andperihepatic free fluid. The spleen, adrenals and gallbladder areunremarkable. Fatty atrophy of the pancreas. No hydronephrosis. The smalland large bowel are nondilated. Peritoneal dialysis catheter is seen in the right lower quadrant with a small amountof fluid in the pelvis. No lymphadenopathy in the abdomen or pelvis.Fat-containing umbilical hernia. IMPRESSION: 1. Diffuse atherosclerotic disease throughout the abdominal aorta withmild stenosis distally. 2. Severe stenosis at the origin of the right internal iliac artery andmoderate stenosis at the origin of the right external iliac artery. 3. Patent left common iliac artery stent. 4. Multifocal severe stenoses in the bilateral superficial femoralarteries. Moderate stenosis within the right superficial femoral arterystent. Patent left superficial femoral artery stent without stenosis. 5. Severe stenosis in the distal left popliteal artery. 6. Diffusely diseased tibial arteries bilateral appear patent, howeversomewhat limited evaluation. us Jayjay Pak P.A.-C. IMG CT PROCEDURES Final Result * (ABNORMAL) Creatinine, POCT (03/09/2024 3:06 PM CDT) Only the most recent of2 resultswithin the time period is included. Creatinine, POCT, B 6.4(H) 0.7 - 1.4 mg/dL 03/09/2024 3:07 PM CDT PCDT Comment: ----ADDITIONAL INFORMATION---- Performed at the Point of Care Blood 03/09/2024 3:06 PM CDT 03/09/2024 3:08 PM CDT us Unknown Provider LAB POCT ORDERABLES - DEVICE Fi nal Result [facility]FORM[facility] [address] [place] [address], [facility] PCDT [facility] POC [address] [place] [address] * DX Foot Bilateral 3+ Views (03/07/2024 10:34 AM CDT) Anatomical Region Laterality Modality Lower Extremity, Foot, Muscu loskeletal RST LOS, Musculoskeletal ARZ LOS, Muskuloskeletal FLA LOS Bilateral Digit al Radiography Impressions 03/07/2024 11:12 AM CDT Comparison 03/10/2017. Right: Patchy lucencies within the medial aspect of the head of the first metatarsal, nonspecific, can be seen with degenerative joint disease versus early osteomyelitis. Correlate with site of nonhealing wounds and possible MRI for further evaluation. Question small intra-articular fracture at the lateral base of the first proximal phalanx. Hallux valgus deformity with overlying soft tissue thickening and edema. Pes planus. Diffuse demineralization. Partial amputation of the third and fourth rays at the level of the metatarsal necks. Moderate to advanced forefoot and midfoot osteoarthritis. There is extensive vascular calcifications. Plantar calcaneal enthesophyte. Left: Partial amputation of the first ray at the level of the interphalangeal joint. Pes planus. Diffuse demineralization. Moderate to advanced right foot and mild to moderate forefoot polyarticular osteoarthritis. No acute fracture. Vascular calcifications. Prominent plantar calcaneal enthesophyte. Calcifications at the posterior tibiotalar joint, may represent joint bodies versus osseous trigonum. . Narrative 03/07/2024 11:12 AM CDT EXAM: DX FOOT BILATERAL 3+ VIEWS Procedure Note Cristel Hinojosa D.O. - 03/07/2024 EXAM: DX FOOT BILATERAL 3+ VIEWS IMPRESSION: Comparison 03/10/2017. Right: Patchy lucencies within the medial aspect of the head of the firstmetatarsal, nonspecific, can be seen with degenerative joint diseaseversus early osteomyelitis. Correlate with site of nonhealing wounds andpossible MRI for further evaluation. Question small intra-articular fracture at the lateral base of the firstproximal phalanx. Hallux valgus deformity with overlying soft tissuethickening and edema. Pes planus. Diffuse demineralization. Partialamputation of the third and fourth rays at the level of the metatarsal necks. Moderate to advanced forefoot andmidfoot osteoarthritis. There is extensive vascular calcifications.Plantar calcaneal enthesophyte. Left: Partial amputation of the first ray at the level of theinterphalangeal joint. Pes planus. Diffuse demineralization. Moderate toadvanced right foot and mild to moderate forefoot polyarticularosteoarthritis. No acute fracture. Vascular calcifications. Prominent plantar calcaneal enthesophyte. Calcificationsat the posterior tibiotalar joint, may represent joint bodies versusosseous trigonum. . us Jayjay A Meverden P.A.-C. IMG DIAGNOSTIC IMAGING P ROCEDURES Final Result * US Lower Extremity Arteries Bilateral (03/05/2024 1:02 PM CDT) Anatomical Region Laterality Modality Lower Extremity, Ultrasound RST LOS, Ultrasound ARZ LOS, Ultrasound FLA LOS, Procedural, Vascular Interventional NWWI LOS Bilateral Ultrasound Impressions 03/05/2024 3:18 PM CDT RIGHT: Patent superficial femoral artery stents. New stenoses within the stents and in the [place] distal SFA below the stents. LEFT: Unchanged stenosis of the [place] proximal superficial femoral artery. Patent mid SFA stents with new stenosis at the proximal end point. Worsening stenosis in the [place] distal SFA. Similar stenoses in the popliteal artery and tibioperoneal trunk. Severely dampened Doppler waveforms at the ankle. Narrative 03/05/2024 3:18 PM CDT EXAM: US LOWER EXTREMITY ARTERIES BILATERAL Exam performed with color and spectral Doppler analysis. COMPARISON: US LOWER EXTREMITY ARTERIES BILATERAL dated March 03, 2023 FINDINGS: RIGHT: ?? Common femoral: Mild atherosclerosis without focal stenosis. 116 cm/s. Profunda femoral: Mild atherosclerosis with borderline elevated Doppler velocities, suggestive of mild narrowing. 195 cm/s. Superficial femoral artery: Extensive atherosclerotic changes throughout the superficial femoral artery. Proximal superficial femoral: Patent metallic stents in the proximal SFA. Mildly dampened Doppler waveforms. 48 cm/s. Mid superficial femoral: Interval development of stenosis, possibly between 2 adjacent stents. 208 cm/s today, previously 104 cm/s at a similar level. Distal superficial femoral: Interval development of stenosis within the [place] SFA below the stents. 451 cm/s today, previously 136 cm/s at a similar level. Popliteal: Moderate atherosclerotic changes. Dampened Doppler waveforms without obvious focal stenosis. 52 cm/s. Posterior tibial at the ankle: Patent with dampened Doppler waveforms. 28 cm/s. Dorsalis Pedis: Patent with dampened Doppler waveforms. 19 cm/s. LEFT: Common femoral: 92 cm/s. Profunda femoral: 131 cm/s. Superficial femoral artery: Extensive atherosclerotic changes throughout the superficial femoral artery. Proximal superficial femoral: Elevated Doppler velocities (128 cm/s today, previously 166 cm/s), consistent with stenosis. Mid superficial femoral: Patent metallic stents. Newly elevated Doppler velocities at the proximal stent endpoint (410 cm/s), consistent with developing stenoses. Distal superficial femoral: Focally elevated Doppler velocities within the [place] distal SFA (128 cm/s today, previously 100 cm/s), consistent with stenosis. Popliteal: Focally elevated Doppler velocities (140 cm/s), consistent with stenosis.. Posterior tibial at the ankle: Focally elevated Doppler velocities in the tibioperoneal trunk (157 cm/s today, previously 369 cm/s), consistent with stenosis. Patent at the ankle with severely dampened Doppler waveforms. Dorsalis Pedis: Patent with severely dampened Doppler waveforms. MIMI RIGHT: ? Highest: 0.48 MIMI LEFT: ? Highest: 0.37 Disease Severity ??MIMI (rest) Non-compressible or nonreproducible >1.40 Normal ??1.00 Borderline 0.99-0.90 Mild 0.80-0.89 Moderate 0.50 - 0.79 Severe <0.50 Procedure Note Lawrence Sims M.D. - 03/05/2024 EXAM: US LOWER EXTREMITY ARTERIES BILATERAL Exam performed with color and spectral Doppler analysis. COMPARISON: US LOWER EXTREMITY ARTERIES BILATERAL dated March 03, 2023 FINDINGS: RIGHT: Common femoral: Mild atherosclerosis without focal stenosis. 116 cm/s. Profunda femoral: Mild atherosclerosis with borderline elevated Dopplervelocities, suggestive of mild narrowing. 195 cm/s. Superficial femoral artery: Extensive atherosclerotic changes throughoutthe superficial femoral artery. Proximal superficial femoral: Patent metallic stents in the proximal SFA.Mildly dampened Doppler waveforms. 48 cm/s. Mid superficial femoral: Interval development of stenosis, possiblybetween 2 adjacent stents. 208 cm/s today, previously 104 cm/s at asimilar level. Distal superficial femoral: Interval development of stenosis within thenative SFA below the stents. 451 cm/s today, previously 136 cm/s at asimilar level. Popliteal: Moderate atherosclerotic changes. Dampened Doppler waveformswithout obvious focal stenosis. 52 cm/s. Posterior tibial at the ankle: Patent with dampened Doppler waveforms. 28cm/s. Dorsalis Pedis: Patent with dampened Doppler waveforms. 19 cm/s. LEFT: Common femoral: 92 cm/s. Profunda femoral: 131 cm/s. Superficial femoral artery: Extensive atherosclerotic changes throughoutthe superficial femoral artery. Proximal superficial femoral: Elevated Doppler velocities (128 cm/s today,previously 166 cm/s), consistent with stenosis. Mid superficial femoral: Patent metallic stents. Newly elevated Dopplervelocities at the proximal stent endpoint (410 cm/s), consistent withdeveloping stenoses. Distal superficial femoral: Focally elevated Doppler velocities within thenative distal SFA (128 cm/s today, previously 100 cm/s), consistent withstenosis. Popliteal: Focally elevated Doppler velocities (140 cm/s), consistent withstenosis.. Posterior tibial at the ankle: Focally elevated Doppler velocities in thetibioperoneal trunk (157 cm/s today, previously 369 cm/s), consistent withstenosis. Patent at the ankle with severely dampened Doppler waveforms. Dorsalis Pedis: Patent with severely dampened Doppler waveforms. MIMI RIGHT: Highest: 0.48 MIMI LEFT: Highest: 0.37 Disease Severity MIMI (rest) Non-compressible or nonreproducible >1.40 Normal 1.00 Borderline 0.99-0.90 Mild 0.80-0.89 Moderate 0.50 - 0.79 Severe <0.50 IMPRESSION: RIGHT: Patent superficial femoral artery stents. New stenoses within thestents and in the [place] distal SFA below the stents. LEFT: Unchanged stenosis of the [place] proximal superficial femoralartery. Patent mid SFA stents with new stenosis at the proximal end point.Worsening stenosis in the [place] distal SFA. Similar stenoses in thepopliteal artery and tibioperoneal trunk. Severely dampened Doppler waveforms at the ankle. us Jayjay Pak P.A.-C. IMG US PROCEDURES Final Result * US Aorta Iliac Arteries Bilateral with Doppler (03/05/2024 12:52 PM CDT) Anatomical Region Laterality Modality Abdomen, Pelvis, Ultrasound RST LOS, Ultrasound ARZ LOS, Ultrasound FLA LOS, Procedural, Vascular Interventional NWWI LOS Bilateral Ultrasound Impressions 03/06/2024 12:29 PM CDT 1. Patent bilateral iliac artery stents with worsening stenoses on the left. 2. The previously seen [place] right external iliac artery stenosis is not definitely identified today. Narrative 03/06/2024 12:29 PM CDT EXAM: US AORTA ILIAC ARTERIES BILATERAL WITH DOPPLER Exam performed with color and spectral Doppler analysis. COMPARISON: US AORTA ILIAC ARTERIES BILATERAL WITH DOPPLER dated March 03, 2023 FINDINGS: Normal caliber distal abdominal aorta. RIGHT: Again demonstrated are patent metallic stents in the common iliac artery. Doppler evaluation demonstrates diffusely elevated flow velocities within the stent without obvious focal stenosis. The internal iliac artery is not definitely visualized. Diffusely elevated Doppler velocities within the [place] external iliac artery without obvious focal stenosis. LEFT: Again demonstrated are patent metallic stents in the common iliac artery. Interval increase in elevated Doppler velocities at the origin of the stent (510 cm/s today, previously 352 cm/s), consistent with stenosis which has likely increased. Also again demonstrated are patent metallic stents in the external iliac artery with elevated proximal Doppler velocities (294 cm/s today, previously 293 cm/s), consistent with stenosis. Procedure Note Lawrence Sims M.D. - 03/06/2024 EXAM: US AORTA ILIAC ARTERIES BILATERAL WITH DOPPLER Exam performed with color and spectral Doppler analysis. COMPARISON: US AORTA ILIAC ARTERIES BILATERAL WITH DOPPLER dated 2022 FINDINGS: Normal caliber distal abdominal aorta. RIGHT: Again demonstrated are patent metallic stents in the common iliacartery. Doppler evaluation demonstrates diffusely elevated flow velocitieswithin the stent without obvious focal stenosis. The internal iliac artery is not definitely visualized. Diffusely elevatedDoppler velocities within the [place] external iliac artery without obviousfocal stenosis. LEFT: Again demonstrated are patent metallic stents in the common iliacartery. Interval increase in elevated Doppler velocities at the origin ofthe stent (510 cm/s today, previously 352 cm/s), consistent with stenosiswhich has likely increased. Also again demonstrated are patent metallic stents in the external iliacartery with elevated proximal Doppler velocities (294 cm/s today,previously 293 cm/s), consistent with stenosis. IMPRESSION: 1. Patent bilateral iliac artery stents with worsening stenoses on theleft. 2. The previously seen [place] right external iliac artery stenosis is notdefinitely identified today. us Jayjay Pak P.A.-C. IMG US PROCEDURES Final Result * ECG 12 Lead (03/05/2024 11:03 AM CDT) Ventricular Rate ECG/Min 90 BPM MUSE [place] Interval 152 ms MUSE QRSD Interval 122 ms MUSE QT Interval 404 ms MUSE QTC Interval 494 ms MUSE P [place] 73 degrees MUSE R [place] -18 degrees MUSE T Wave [place] 33 degrees MUSE 03/05/2024 11:0 3 AM CDT 03/05/2024 11:35 AM CDT Impressions MUSE - 03/05/2024 11:35 AM CDT Sinus rhythm Right bundle branch block Nonspecific ST and T wave abnormality When compared with ECG of 03-Mar-2023 07:52, QT has shortened Reviewed by JUAREZ Flores Narrative Procedure Note Marco A Moeller Jr., M.D. - 03/05/2024 IMPRESSION: Sinus rhythm Right bundle branch block Nonspecific ST and T wave abnormality When compared with ECG of 03-Mar-2023 07:52, QT has shortened Reviewed by JUAREZ Flores us Jayjay Pak P.A.-C. ECG ORDERABLES Final Re sult MUSE NA * Lower Extremity Arterial (MIMI) - TCPO2 (Wound) (03/05/2024 8:54 AM CDT) Anatomical Region Laterality Modality Other 03/05/2024 7:30 AM CDT Narrative 03/05/2024 11:07 AM CDT Right: Doppler Waveforms: ? Abnormal signals starting at or above the superficial femoral level. ?? Resting Index: ? MIMI (PT)- ??0.48 ?MIMI (DP)- ??0.41 ?TBI- ??Not done due to ulcer/amputation. TcPO2: ? Values as noted. ?? Left: Doppler Waveforms: ? Abnormal signals starting at or above the common femoral level. ?? Resting Index: ? MIMI (PT)- ??0.33 ?MIMI (DP)- ??0.38 ?TBI- ??Not done due to ulcer/no signal. TcPO2: ? Values as noted. ?? Conclusions: Right: Severe, multilevel arterial occlusive disease starting at the superficial femoral level. TcPO2 values are normal at the calf and severely reduced at the foot. Left: Severe, multilevel iliofemoralarterial occlusive disease. TcPO2 values are moderately reduced above the knee and severely reduced atthe calf, proximal foot, and distal foot. Compared to the prior study (03/03/2023), arterial occlusive disease is severe, with worsening TcPO2 values bilaterally. Procedure Note Edgar Yarbrough M.D. - 03/05/2024 Right: Doppler Waveforms: Abnormal signals starting at or above thesuperficial femoral level. Resting Index: MIMI (PT)- 0.48 MIMI(DP)- 0.41 TBI- Not done due to ulcer/amputation. TcPO2: Valuesas noted. Left: Doppler Waveforms: Abnormal signals starting at or above thecommon femoral level. Resting Index: MIMI (PT)- 0.33 MIMI (DP)-0.38 TBI- Not done due to ulcer/no signal. TcPO2: Values asnoted. Conclusions: Right: Severe, multilevel arterial occlusive disease startingat the superficial femoral level. TcPO2 values are normal at the calf andseverely reduced at the foot. Left: Severe, multilevel iliofemoralarterialocclusive disease. TcPO2 values are moderately reduced above the knee and severely reduced atthecalf, proximal foot, and distal foot. Compared to the prior study(03/03/2023), arterial occlusive disease is severe, with worsening [id number] bilaterally. Jayjay Pak P.A.-C. CV VASCULAR PROCEDURES F inal Result * (ABNORMAL) Renal Function Panel (02/17/2023 9:35 [...] AM CDT 02/17/2023 11:01 AM CDT Narrative [facility] - 02/17/2023 4:02 PM CDT Specimen Information: Specimen ID: [id number] Specimen Type: Blood Specimen Collection Start Date: 02/17/2023 ??9:35 AM Specimen Received Date: 02/17/2023 11:01 AM Specimen ID: [id number] Specimen Type: Blood Specimen Collection Start Date: 02/17/2023 ??9:35 AM Specimen Received Date: 02/17/2023 ??3:35 PM us Haseeb Menon Jr., D.O. LAB BLOOD ADD-ON Fin al Result [facility] [address] [place] [address], [facility] [facility] [place] [address] [place] [address] [facility]UST [facility] [address] [place] [address] * HCV Ab Scrn w/Reflex to HCV PCR, Serum (02/17/2023 9:35 AM CDT) HCV Ab Screen, S Negative Negative 02/18/20 3:35 PM CDT MKTO Comment: Biotin has been identified by the call center assistant as a potential interfering substance. Higher concentrations of biotin may be found in multivitamins, hair/nail supplements, and workout supplements. If the result does not match clinical observations, repeat testing after patient refrains from the use of supplements for at least 12 hours. Blood (Blood, Venous) 02/17/2023 9:35 AM CDT 02/17/2023 2:20 PM CDT Narrative [facility] - 02/17/2023 3:35 PM CDT Specimen Information: Specimen ID: [id number] Specimen Type: Blood Specimen Collection Start Date: 02/17/2023 ??9:35 AM Specimen Received Date: 02/17/2023 ??2:20 PM Specimen ID: [id number] Specimen Type: Blood Specimen Collection Start Date: 02/17/2023 ??9:35 AM Specimen Received Date: 02/17/2023 ??2:16 PM Haseeb Menon Jr. D.O. LAB MICROBIOLOGY - B LOOD ORDERABLES Final Result [facility] [address] [place] [address], [facility] [place] [address] [place] [phone] * (ABNORMAL) Albumin, Random, Urine (02/17/2023 9:26 AM CDT) Microalbumin 895.0 mg/L 02/17/2023 1:53 PM CDT [facility] Creatinine 42 mg/dL 02/17/2023 12:50 PM CDT [facility] Albumin/Creatinin e Ratio 2130(H) <17 mg/g 02/17/2023 1:53 PM CDT [facility] Urine (Urine, Voided) 02/17/2023 9:26 AM CDT 02/17/2023 11:00 AM CDT us Estiven He Jr.OFei LAB URINE ORDERABLES Final Result Performing Organization Address [facility] de Phone Number [facility] [address] [place] [address], [facility] [address] [facility] [place] [address], [place] [address] * (ABNORMAL) Hemoglobin A1c (11/25/2022 2:09 PM [...] ADD-ON Fin al Result Performing Organization Address [facility] Co de Phone Number [facility] [address] [place] [address], [facility] [address] [facility] [place] [address] [place] [address] * (ABNORMAL) Lipid Panel (02/10/2021 8:27 AM [...] Reyes LAB BLOOD ADD-ON Final Resu lt [facility] [address] [place] [address], [facility] [address] [place] [address] * CT Abdomen Pelvis Angiogram with IV [...] moderate stenosis. Kemar Reyes IMSophie CT PROCEDURES Final Res ult from Last 3 Months or Most Recently Relevant to Health Maintenance Insurance [place] [address] MEDICARE Advance Directives For more information, please contact: [phone] * Full Code (Latest Code Status on [...] Answer Comments Full Code: Discussed Care Teams Butcher'S Assistant Relationship Specialty Start Date End Date Elsewhere, Pcp PCP - General Family Medicine 01/29/20
--- OUTSIDE RECORDS SUMMARY | 2024-03-20 10:03 | XMS_ITS | Clinical Summary ---
Author Organization [employer] [facility] Address [place], [place] [address] Care Team Providers Care Deputy Sheriff Civil Division Name Role Phone Casa Lucia MD Unavailable Unavailable Rudy Riddle MD Unavailable [phone] Rudy Riddle MD Primary Care Provider + Allergies Active Allergy Reactions Criticality Noted Date Comments Gabapentin Other - Describe In Comment Field Medium 08/04/2020 Dizzy, memory issue Dizzy, memory issue Morphine Itching 02/04/2010 After 3 days of use Pregabalin Anaphylaxis,Itching High 02/16/2017 swetesfaye jane Voaqhwk-Uwt-Sqm Reductase Inhibitors Myalgia 02/13/2014 Medications Medication Sig [...] Comments Blood Pressure 162/87 07/21/2022 9:21 PM COAL YARD SUPERVISOR Pulse 100 07/21/2022 9:21 PM COAL YARD SUPERVISOR Temperature 37.1 ??C (98.8 ??F) 07/21/2022 8:51 PM CS T Respiratory Rate 18 07/21/2022 8:51 PM COAL YARD SUPERVISOR Oxygen Saturation 96% 07/21/2022 9:21 PM COAL YARD SUPERVISOR Inhaled Oxygen Concentration - - Weight 83.9 kg (185 lb) 07/21/2022 5:35 PM COAL YARD SUPERVISOR Height 175.3 cm (5' 9) 07/21/2022 5:35 PM COAL YARD SUPERVISOR Body Mass Index 27.32 07/21/2022 5:35 PM COAL YARD SUPERVISOR Plan of Treatment Health Maintenance Due [...] history exists COVID-19 vaccine series ( season) 2024 Influenza for age 65+ 01/15/2024 03/17/2022 , 03/24/2021, 02/20/2020, Additional history exists Tetanus booster 08/16/2026 08/16/2016, 11/0 01/2007, 03/24/2007, Additional history exists Colonoscopy through [...] Associated Diagnosis Comments COLONOSCOPY 05/12/2022 8:51 AM COAL YARD SUPERVISOR LIPID PANEL W REFLEX MEASURED LDL Routine 02/16/2016 8:59 AM CDT Hyperlipidemia, unspecified hyperlipidemia type from Last 3 Months or Most Recently Relevant to Health Maintenance Results * COLONOSCOPY (05/12/2022 8:51 AM COAL YARD SUPERVISOR) 05/12/2022 8:51 AM COAL YARD SUPERVISOR Narrative Transcriptions Lukas West MD - 05/12/2022 9:03 AM [facility] Patient Name: Onesimo Walton Procedure Date: 05/12/2022 Gender: Male Date of : 1950 Admit Type: Inpatient Procedure: Colonoscopy Proceduralist: Lukas West MD [facility] Indications/Pre-Op Diagnosis: Anemia. Bacteremia Medications: Monitored Anesthesia Care Procedure Description: The patient had risks, benefits and alternatives explained to andgave informed consent. The patient had a stable cardiopulmonary status and judged an adequate candidate for conscious sedation. The [id number] endoscope was passed through the anus and [...] mg/dL 02/16/2016 11:02 AM CDT [facility] TRIGLYCERIDES 232(H) <150 mg/dL 02/16/2016 11:02 AM CDT [facility] HDL CHOLESTEROL 31(L) >40 mg/dL 02/16/2016 11:02 AM CDT [facility] NON-HDL CHOLESTEROL 147(H) <145 mg/dl 02/16/2016 11:02 AM CDT [facility] CHOL/HDL RATIO 5.74(H) <4.50 02/16/2016 11:02 AM CDT [facility] LDL CHOLESTEROL 101 <=130 mg/dL 02/16/2016 11:02 AM CDT [facility] PATIENT STATUS FASTING 02/16/2016 11:02 AM CDT [facility] Blood BLOOD SPECIMEN / Unknown Venipuncture / Unknown 02/16/2016 8:59 AM CDT 02/16/2016 8:59 AM CDT Rudy Riddle MD CHEMISTRY [facility] [address] [place], [place] [id number] [place] [address] [place] [address], [place] [phone] from Last 3 Months or Most Recently [...] Provider to review later Care Teams Deputy Sheriff Civil Division Relationship Specialty Start Date End Date Rudy Riddle MD [address] [place] [address] PCP - General Family Practice 05/25/22 Casa Lucia MD [address] [place] [address] Ophthalmology Ophthalmology Surgery 12/22/11 Rudy Riddle MD [address] [facility] [place] [address] Family Practice 05/07/22
--- OUTSIDE RECORDS SUMMARY | 2024-03-20 10:03 | XMS_ITS | Encounter Summary ---
Author Organization [facility] Address [address] [place] [address] Care Team Providers Care Creative Strategist Name Role Phone Elsewhere, Pcp Primary Care Provider Unavailabl e Encounter Details Date Type Department Care Team (Late st Contact Info) Description 03/20/2024 Clinical Communication Division of Vascular and Endovascular Surgery in [place], [place] [address] [place] [phone] Kemar Velásquez M.B.B.S. [address] [place] [phone] Social History Tobacco Use Types Packs/Day Years Used Date Smoking Tobacco: Former Cigarettes 1 38.9 0 05/16/1983 - 04/2022 Smokeless Tobacco: Never Alcohol Use Standard Drinks/Week Comments Not Currently 0 (1 standard drink = 0.6 oz pur e alcohol) [facility] Utilities Answer Date Recorded In the past 12 months has [facility] [employer], oil, or water [employer] threatened to shut off services in your [...] How often do you attend anabaptism or jew serv ices? Never 03/24/2021 Do [...] a [facility] to live 03/11/2024 Education Answer Date Recorded What is the highest level of school you have completed or the highest degree you have received? 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/2021 8:13 PM SWITCH TECHNICIAN Legal Sex Male 12:04 AM SWITCH TECHNICIAN Gender Identity Male 08/31/2019 2:40 PM CDT Sexual Orientation Straight 08/31/2019 2: 40 PM CDT documented as of this encounter Plan of Treatment Upcoming Encounters Date Type Department Care Team (Latest Contact Info) Description 04/03/2024 11:30 AM SWITCH TECHNICIAN Hospital Encounter Post Anesthesia Care Unit in [place], [place] [address] [place] [phone] Kemar Velásquez M.B.B.S. 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 [address] [place] [phone] IR ENDOVASCULAR ANGIOPLASTY STENT LOWER EXTREMITY, right femoral access 04/04/2024 7:40 AM SWITCH TECHNICIAN Hospital Encounter Post Anesthesia Care Unit in [place], [place] [address] [place] [phone] Kemar Velásquez M.B.B.S. 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
--- OUTSIDE RECORDS SUMMARY | 2024-03-20 10:03 | XMS_ITS ---
Author Organization [facility] Address [address] [place] [address] Care Team Providers Care Line Supply Name Role Phone Unavailable Unavailable Unavailable Surgery Details Not on file Complications Check Surgery Details section. Procedure Estimated Blood Loss Check Surgery Details section. Procedure Findings Check Surgery Details section. Procedure Specimens Taken Check Surgery Details section.
--- OUTSIDE RECORDS SUMMARY | 2024-03-20 10:03 | XMS_ITS | Referral Summary ---
Author Organization [facility] Address [address] [place] [address] Care Team Providers Care Global Recruiter Name Role Phone Elsewhere, Pcp Primary Care Provider Unavailabl e Source Comments Patient records contain information from all sites at [facility]. For routine questions regarding patient records, call [phone] during business hours, M-F 8:00 AM - 5:00 PM Central Time. Record requests for emergency care only can be directed to [phone] at any time.[facility] Encounters Date Type Department Care Team Description 03/20/2024 Clinical Communication Division of Vascular and Endovascular Surgery in [place], [place] [address] [place] [address] Kemar Velásquez M.B.B.S. 03/13/2024 Documentation Division of Nephrology and Hypertension in [place], [place] [address] [place] [address] Haseeb Menon Jr., Kylah.O. 03/13/2024 Orders Only Division of Nephrology and Hypertension in [place], [place] [address] [place] [address] Haseeb Menon Jr., Kylah.O. 03/12/2024 7:10 AM CDT Ancillary Procedure Department of Vascular 03/12/2024 7:05 AM CDT Ancillary Procedure Department of Vascular 03/12/2024 7:00 AM CDT Ancillary Procedure Department of Vascular 03/12/2024 6:15 AM CDT Ancillary Procedure Department of Vascular 03/12/2024 6:10 AM CDT Ancillary Procedure Department of Vascular 03/12/2024 8:00 AM CDT Comprehensive Visit Department of Vascular Medicine in [place], [place] [address] [place] [address] Kimmy Buckner APRN C.N.P., Kylah.N.P. Wound Foot Open Subsequent Right (Primary Dx); Peripheral Arterial Disease (HCC); Neuropathy Peripheral; Wound Foot Open Subsequent Left; Diabetes Mellitus Type 2 With Other Circulatory Complication (HCC) Discharge Disposition: Home or Self Care 03/12/2024 10:40 AM CDT Comprehensive Visit Division of Vascular and Endovascular Surgery in [place], [place] [address] [place] [address] Kemar Velásquez M.B.B.S. 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) 03/09/2024 6:25 PM CDT - 03/09/2024 11:59 PM CDT Hospital Encounter Department of Radiology, [place], [place] [address] [place] [address] Jayjay Pak P.A.-CFei Follow Up Examination Status Post Surgery; Peripheral Arterial Disease (HCC); Wound Foot Open Subsequent Left; Wound Foot Open Subsequent Right Discharge Disposition: Home or Self Care 03/09/2024 2:02 PM CDT - 03/09/2024 6:24 PM CDT Hospital Encounter Department of Radiology, [facility] in [place], [place] [address] [place] [address] Jayjay Pak, P.A.-CFei Follow Up Examination Status Post Surgery; Peripheral Arterial Disease (HCC); Wound Foot Open Subsequent Left; Wound Foot Open Subsequent Right Discharge Disposition: Home or Self Care 03/07/2024 Orders Only Department of Vascular Medicine in [place], [place] [address] [place] [phone] Jayjay Pak P.A.-C. 03/07/2024 10:12 AM CDT - 03/07/2024 11:59 PM CDT Hospital Encounter Department of Radiology in [place], [place] [address] [address] Jayjay Pak P.A.-C. Peripheral Arterial Disease (HCC); Wound Foot Open Subsequent Left; Wound Foot Open Subsequent Right Discharge Disposition: Home or Self Care 03/06/2024 Orders Only Department of Vascular Medicine in [place], [place] [address] [place] [phone] Jayjay Pak P.A.-William. Peripheral Arterial Disease (HCC) (Primary Dx); Wound Foot Open Subsequent Left; Wound Foot Open Subsequent Right 03/05/2024 11:19 AM CDT - 03/05/2024 11:59 PM CDT Hospital Encounter Department of Radiology, [facility], in [address] [address] Jayjay Pak P.A.-CFei Follow Up Examination Status Post Surgery; Peripheral Arterial Disease (HCC) Discharge Disposition: Home or Self Care 03/05/2024 7:30 AM CDT - 03/05/2024 10:59 AM CDT Hospital Encounter Department of Vascular Medicine in [place], [place] [address] [place] [phone] Jayjay Pak P.A.-CFei Follow Up Examination Status Post Surgery; Peripheral Arterial Disease (HCC) Discharge Disposition: Home or Self Care 03/05/2024 11:00 AM CDT - 03/05/2024 11:18 AM CDT Hospital Encounter Department of Radiology, [facility], in [address] [address] Jayjay Pak P.A.-CFei Follow Up Examination Status Post Surgery; Peripheral Arterial Disease (HCC) Discharge Disposition: Home or Self Care 03/05/2024 3:00 PM CDT Office Visit Department of Vascular Medicine in [address] [address] Jayjay Pak P.A.-CFei Follow Up Examination Status Post Surgery (Primary Dx); Peripheral Arterial Disease (HCC); Wound Foot Open Subsequent Left; Wound Foot Open Subsequent Right 02/23/2024 Refill Division of Nephrology and Hypertension in [place], [place] [address] [place] [address] Onesimo Rodriguez M.D. Med Refill 02/11/2024 Refill Division of Nephrology and Hypertension in [place], [place] [address] [place] [address] Haseeb Menon Jr. D.O. Med Refill 01/14/2024 Refill Division of Nephrology and Hypertension in [place], [place] [address] [place] [address] Onesimo Rodriguez M.D. Med Refill 01/05/2024 Orders Only Department of Vascular Medicine in [place], [place] [address] [place] [address] Jayjay Pak P.A.-C. 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 Never 03/24/2021 Do [...] [facility] of Occupat ional [facility] - Occupational Stress Questionnaire Answer Date [...] have a [facility] place to live 03/11/2024 Education Answer Date Recorded What is the highest level of school you have completed or the highest degree you have received? 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/2021 8:13 PM DEVIL DOG Legal Sex Male 12:04 AM DEVIL DOG Gender Identity Male 08/31/2019 2:40 PM CDT [...] (Latest Contact Info) Description 04/03/2024 11:30 AM DEVIL DOG Hospital Encounter Post Anesthesia Care Unit in [place] [id number] [place] [phone] Kemar Velásquez M.B.B.S. 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 [address] [place] [phone] IR ENDOVASCULAR ANGIOPLASTY STENT LOWER EXTREMITY, right femoral access 04/04/2024 7:40 AM DEVIL DOG Hospital Encounter Post Anesthesia Care Unit in [place] [address] [place] [phone] Kemar Velásquez M.B.B.S. 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 Body Location - Other. Vascular. Device Status Text - [id number]. Ocular Lens-10/29/2007 Implanted:10/28 by Nato Dougherty APRN, C.N.P., R.N. (Quantity not on file) Ocular Lens Bilateral: Eye Description:Cataract extract ion and insertion of intraocular lens 06/22/2016 09:27 - NATO DOUGHERTY APRN CADET DECK bilateral Conversions - Default Historical Implant Device [...] 6mm X 29mm X 135cm - [place] [id number] Implanted:Qty: 1 on 03/04/2017 Vascular Graft [place] Description:Device Manufactu rer - [employer]. Device Status Text - [id number]. Stent Vbx [id number] - [place] [id number] Implanted:Qty: 1 on 03/04/2017 Vascular Graft Other/Legacy - See Implant Description [place] Description:Device Manufactu rer - [employer] [place] [employer] Body Location - Other. n/a. Device Status Text - [id number]. Stent Vbx [id number] - [place] [id number] Implanted:Qty: 1 on 03/04/2017 Vascular Graft Other/Legacy - See Implant Description [place] Description:Device Manufactu rer - [employer] [place] [employer] Body Location - Other. n/a. Device Status Text - [id number]. Stent Zilver Ptx 6mm X 40mm - [place] [id number] Implanted:Qty: 1 on 04/04/2017 Vascular Stent Other/Legacy - See Implant Description HydroNovation Description:Device Manufactu [employer] - [employer]Novation. Body Location - Other. Left. Device Status Text - [id number]. Stent Zilver Ptx 6mm X 60mm - [place] [id number] Implanted:Qty: 1 on 04/04/2017 Vascular Stent Other/Legacy - See Implant Description HydroNovation Description:Device Manufactu [employer] - [employer]ovation. Body Location - Other. Left. Device Status Text - [id number]. Stent Zilver Ptx 6mm X 80mm - [place] [id number] Implanted:Qty: 1 on 08/31/2017 Vascular Stent Right: Other/Legacy - See Implant Description HydroNovation / [id number] / Description:Device Manufactu [employer]. Body Location - Right. Device Status Text - [id number]. Stent Zilver Ptx 6mm X 40mm - [place] [id number] Implanted:Qty: 1 on 08/31/2017 Vascular Stent Right: Other/Legacy - See Implant Description HydroNovation / [id number] / Description:Device Manufactu rer - [employer]ovation. Body Location - Right. Device Status Text - [id number]. Stnt Innova Otw [id number] - [id number] Implanted:Qty: 1 on 04/18/2018 by Kemar Velásquez M.B.B.S. at [facility] Vascular Stent [employer] 05/23/2020 [id number] / / [id number] Stnt Innova Otw [id number] - [id number] Implanted:Qty: 1 on 05/11/2019 by Kemar Velásquez M.B.B.S. at [facility] Vascular Stent Left: Leg [employer] 09/05/2020 [id number] / / [id number] Procedures Procedure Name Priority Date/Time Associated Diagnosis [...] mural thrombus causing moderate stenosis (series 5, ). Moderate to severe stenosis distal to the [...] in the mid left SFA (series 5, [id number]) over short segment the level of the [...] howeversomewhat limited evaluation. us Jayjay Pak P.A.-C. [facility] PROCEDURES Final Result * (ABNORMAL) Creatinine, [...] POCT ORDERABLES - DEVICE Fi nal Result POC [facility] [address] [place] [address], [facility] PCDT [facility] - [facility] [address] [place] [address] * DX Foot Bilateral 3+ Views (03/07/2024 [...] joint bodies versusosseous trigonum. . us Jayjay Pak P.A.-C. IMG DIAGNOSTIC IMAGING P ROCEDURES Final Result * US Lower Extremity Arteries Bilateral (03/05/2024 1:02 PM CDT) Anatomical Region Laterality Modality Lower Extremity, Ultrasound RST LOS, Ultrasound ARZ LOS, Ultrasound FLA LOS, Procedural, Vascular Interventional NWWI LOS Bilateral Ultrasound Impressions 03/05/2024 3:18 PM CDT RIGHT: Patent superficial femoral artery stents. New stenoses within the stents and in the [place] distal SFA below the stents. LEFT: Unchanged stenosis of the [place] proximal superficial femoral artery. Patent mid SFA stents with new stenosis at the proximal end point. Worsening stenosis in the [place] distal SFA. Similar stenoses in the popliteal [...] femoral: Interval development of stenosis within the [place] SFA below the stents. 451 cm/s today, [...] femoral: Focally elevated Doppler velocities within the [place] distal SFA (128 cm/s today, previously 100 [...] New stenoses within thestents and in the [place] distal SFA below the stents. LEFT: Unchanged stenosis of the [place] proximal superficial femoralartery. Patent mid SFA stents with new stenosis at the proximal end point.Worsening stenosis in the [place] distal SFA. Similar stenoses in thepopliteal artery [...] on the left. 2. The previously seen [place] right external iliac artery stenosis is not [...] visualized. Diffusely elevated Doppler velocities within the [place] external iliac artery without obvious focal stenosis. [...] definitely visualized. Diffusely elevatedDoppler velocities within the [place] external iliac artery without obviousfocal stenosis. LEFT: [...] stenoses on theleft. 2. The previously seen [place] right external iliac artery stenosis is notdefinitely identified today. us Jayjay Pak P.A.-C. IMG US PROCEDURES Final Result * ECG 12 Lead (03/05/2024 11:03 AM CDT) Ventricular Rate ECG/Min 90 BPM MUSE NJ Interval 152 ms MUSE QRSD Interval 122 ms MUSE QT Interval 404 ms MUSE QTC Interval 494 ms MUSE P [place] 73 degrees MUSE R [place] -18 degrees MUSE T Wave [place] 33 degrees MUSE 03/05/2024 11:0 3 AM [...] arterial occlusive disease is severe, with worsening [id number] bilaterally. us Jayjay Pak P.A.-C. CV VASCULAR PROCEDURES F [...] AM CDT 02/17/2023 11:01 AM CDT Narrative [facility] - 02/17/2023 4:02 PM CDT Specimen Information: Specimen ID: [id number] Specimen Type: Blood Specimen Collection Start Date: 02/17/2023 ??9:35 AM Specimen Received Date: 02/17/2023 11:01 AM Specimen ID: [id number] Specimen Type: Blood Specimen Collection Start Date: 02/17/2023 ??9:35 AM Specimen Received Date: 02/17/2023 ??3:35 PM us Estiven He Jr.O. LAB BLOOD ADD-ON Fin al Result [facility] [address] [place] [address], [facility] [place] [address] [place] [address] AUST [facility] [address] [place] [address] * HCV Ab Scrn w/Reflex to HCV PCR, Serum (02/17/2023 9:35 AM CDT) HCV Ab Screen, S Negative Negative 02/18/20 3:35 PM CDT MKTO Comment: Biotin has been identified by the billing manager as a potential interfering substance. Higher concentrations of biotin may be found in multivitamins, hair/nail supplements, and workout supplements. If the result does not match clinical observations, repeat testing after patient refrains from the use of supplements for at least 12 hours. Blood (Blood, Venous) 02/17/2023 9:35 AM CDT 02/17/2023 2:20 PM CDT Narrative [facility] - 02/17/2023 3:35 PM CDT Specimen Information: Specimen ID: [id number] Specimen Type: Blood Specimen Collection Start Date: 02/17/2023 ??9:35 AM Specimen Received Date: 02/17/2023 ??2:20 PM Specimen ID: [id number] Specimen Type: Blood Specimen Collection Start Date: 02/17/2023 ??9:35 AM Specimen Received Date: 02/17/2023 ??2:16 PM us Haseeb Menon Jr., D.O. LAB MICROBIOLOGY - B LOOD ORDERABLES Final Result Performing Organization Address [facility] Co de Phone Number [facility] [address] [place] [address], [place] MKTO [facility] in [place] [address] [place] [address] * (ABNORMAL) Albumin, Random, Urine (02/17/2023 9:26 AM CDT) Microalbumin 895.0 mg/L 02/17/2023 1:53 PM CDT OW[facility] Creatinine 42 mg/dL 02/17/2023 12:50 PM CDT [facility] Albumin/Creatinin e Ratio 2131(H) <17 mg/g 02/17/2023 1:53 PM CDT [facility] Urine (Urine, Voided) 02/17/2023 9:26 AM CDT 02/17/2023 11:00 AM CDT us Haseeb Menon Jr., D.O. LAB URINE ORDERABLES Final Result Performing Organization Address [facility] Co de Phone Number [facility] [address] [place] [address], [facility] OWAT [facility] in [place] [address] [place] [address] * (ABNORMAL) Hemoglobin A1c (11/25/2022 2:09 PM [...] D.O. LAB BLOOD ADD-ON Fin al Result [facility] [address] [place] [address], [place] OWAT [facility] in [place] [address] [place] [address] * (ABNORMAL) Lipid Panel (02/10/2021 8:27 AM CDT) [facility] Cholesterol, Total 102 mg/dL 2020 10:06 AM [...] 8:27 AM CDT 02/10/2021 9:07 AM CDT us Kemar Reyes LAB BLOOD ADD-ON Final Resu lt [facility] [address] [place] [address], [place] DTL [facility] [address] [place] [address] * CT Abdomen Pelvis Angiogram with IV [...] Most Recently Relevant to Health Maintenance Insurance [facility] MEDICARE Advance Directives For more information, please contact: [phone] * Full Code (Latest Code Status on [...] Answer Comments Full Code: Discussed Care Teams Global Recruiter Relationship Specialty Start Date End Date Elsewhere, Pcp PCP - General Family Medicine 01/29/20
--- OUTSIDE RECORDS SUMMARY | 2024-03-20 10:04 | XMS_ITS | Encounter Summary ---
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 Wire Rope Fabrication Name Role Phone Elsewhere, Pcp Primary Care Provider Unavailabl e Encounter Details Date Type Department Care Team (Late st Contact Info) Description 03/12/2024 6:15 AM CDT Ancillary Procedure Department of Vascular Social History Tobacco Use Types Packs/Day Years Used Date Smoking Tobacco: Former Cigarettes 1 38.9 0 05/16/1983 - 04/2022 Smokeless Tobacco: Never Alcohol Use Standard Drinks/Week Comments Not Currently 0 (1 standard drink = 0.6 oz pur e alcohol) [facility] Utilities Answer Date Recorded In the past 12 months has e [employer], gas, oil, or water [employer] threatened to shut off services in your [...] How often do you attend yazidi or scientology serv ices? Never 03/24/2021 Do [...] situation today? I have a [facility] place to live 03/11/2024 Education Answer Date Recorded What is the highest level of school you have completed or the highest degree you have received? 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/2021 8:13 PM OLD COIN DEALER Legal Sex Male 12:04 AM OLD COIN DEALER Gender Identity Male 08/31/2019 2:40 PM CDT Sexual Orientation Straight 08/31/2019 2: 40 PM CDT documented as of this encounter Plan of Treatment Upcoming Encounters Date Type Department Care Team (Latest Contact Info) Description 04/03/2024 11:30 AM OLD COIN DEALER Hospital Encounter Post Anesthesia Care Unit in [place] [id number] [place] [phone] Kemar Velásquez M.B.B.S. 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 [address] [place] [phone] IR ENDOVASCULAR ANGIOPLASTY STENT LOWER EXTREMITY, right femoral access 04/04/2024 7:40 AM OLD COIN DEALER Hospital Encounter Post Anesthesia Care Unit in [place], [place] [address] [place] [phone] Kemar Velásquez M.B.B.S. 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
--- OUTSIDE RECORDS SUMMARY | 2024-03-20 10:05 | XMS_ITS | Encounter Summary ---
Author Organization [facility] Address [address] [place] [address] Care Team Providers Care Cad Draftsman Name Role Phone Elsewhere, Pcp Primary Care Provider Unavailabl e Reason for Visit * Outpatient (Routine) - Closed Specialty Diagnoses / Procedures Referred By Robi hong Referred To Contact Diagnoses Follow Up Examination Status Post Surgery Peripheral Arterial Disease (HCC) Procedures Lower Extremity Arterial (MIMI) - TCPO2 (Wound) Lower Extremity Arterial (MIMI) - Exercise (Claudication) Jayjay Pak P.A.-C. [address] [place] [phone] Phone: tel: fax: [facility] Referral ID Status Reason Start Date Expiration Date Visits Re quested Visits Authorized [id number] Closed 01/05/2024 01/04/2025 1 1 Encounter Details Date Type Department Care Team (Latest Contact Info) Description 03/05/2024 7:30 AM CDT - 03/05/2024 10:59 AM CDT Hospital Encounter Department of Vascular Medicine in [place], [place] [address] [place] [address] Jayjay Pak P.A.-C. [address] [place] [phone] Follow Up Examination Status Post Surgery; Peripheral [...] How often do you attend catholic or pentecostal serv ices? Never 03/24/2021 Do [...] Answer Date Recorded PHQ-2 Score 0 10/20/2018 [facility] - Occupational Stress [...] Assigned at Male 03/24/2021 8:13 PM MANAGER ICU Legal Sex Male 12:04 AM MANAGER ICU Gender Identity Male 08/31/2019 2:40 PM CDT Sexual Orientation Straight 08/31/2019 2: 40 PM CDT documented as of this encounter Medications at Time of Discharge acetaminophen (TYLENOL) 500 mg tablet Take 2 tablets (1,000 mg total) by mouth every 8 (eight) hours as needed (neuropathy). 03/25/2021 allopurinoL (ZYLOPRIM) 100 mg tablet Take 100 mg by mouth daily. aspirin [address] tablet Take 81 mg by mouth daily. atorvastatin (Lipitor) 20 mg tablet Take 20 mg by mouth. 03/02/2023 blood-glucose meter,continuous by other route. 05/17/2023 blood-glucose sensor device 11/25/2021 blood-glucose sensor device by other route. 03/11/2023 calcium acetate,phosphat bind, (PHOSLO) 667 mg (169 mg calcium) capsule Take 2 capsules (1,334 mg total) by mouth 3 (three) times a day with meals. 540 capsule 3 06/17/2023 5 DULoxetine (CYMBALTA) [address] capsule Take 60 mg by mouth at bedtime. 08/16/2016 ergocalciferol (Vitamin D2) 50,000 Unit capsule Take 50,000 Units by mouth once a week. ferrous sulfate 325 mg (65 mg iron) tablet Take 27 mg by mouth daily. States taking 27 mg daily furosemide (LASIX) 80 mg tablet Take 2 tablets (160 mg total) by mouth 2 (two) times a day. 360 tablet 3 04/26/2023 lisinopriL (PRINIVIL,ZESTRI L) 40 mg tablet Take 0.5 tablets (20 mg total) by mouth daily. Patient reports it was decreased by primary physician about 04/2020 per patient report. 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 5 12/06/2017 omeprazole (PriLOSEC) [address] capsule Take 40 mg by mouth every evening. 09/25/2015 oxyCODONE (ROXICODONE) 5 mg immediate release tabletIndication s:Acute Pain Exception Take 1 tablet (5 mg total) by mouth every 6 (six) hours as needed for severe pain or score 7-10 of 10 Indication: Acute Pain Exception. for pain 6 tablet 02/16/2023 pramipexole (MIRAPEX) 0.5 mg tablet Take 0.5 mg by mouth at bedtime. sennosides-docus ate sodium (SENOKOT-S) 8.6-50 mg per tablet Take 1 tablet by mouth 2 (two) times a day. 180 tablet 3 03/21/2023 4 UNABLE TO FIND Insulin pump carvediloL (COREG) 25 mg tablet Take 2 tablets (50 mg total) by mouth 2 (two) times a day with meals. 03/25/2021 4 documented as of this encounter Plan of Treatment Upcoming Encounters Date Type Department Care Team (Latest Contact Info) Description 04/03/2024 11:30 AM MANAGER ICU Hospital Encounter Post Anesthesia Care Unit in [address] [phone] Kemar Velásquez M.B.B.S. 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 [address] [place] [phone] IR ENDOVASCULAR ANGIOPLASTY STENT LOWER EXTREMITY, right femoral access 04/04/2024 7:40 AM MANAGER ICU Hospital Encounter Post Anesthesia Care Unit in [address] [phone] Kemar Velásquez M.B.B.S. 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 us Jayjay Pak P.A.-C. 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
--- OUTSIDE RECORDS SUMMARY | 2024-03-20 10:05 | XMS_ITS | Encounter Summary ---
Author Organization [facility] Address [address] [place] [address] Care Team Providers Care Hat Finisher Name Role Phone Elsewhere, Pcp Primary Care Provider Unavailabl e Reason for Visit * Outpatient (Routine) - Closed Specialty Diagnoses / Procedures Referred By Robi t Referred To Contact Diagnoses Follow Up Examination Status Post Surgery Peripheral Arterial Disease (HCC) Procedures US Lower Extremity Arteries Bilateral US Lower Extremity Artery Graft Bilateral Jayjay Pak P.AFei-CFei 200 [place] [address] Phone: tel: fax: [facility] Referral ID Status Reason Start Date Expiration Date Visits Re quested Visits Authorized [id number] Closed 01/05/2024 01/04/2025 1 1 Encounter Details Date Type Department Care Team (Latest Contact Info) Description 03/05/2024 11:00 AM CDT - 03/05/2024 11:18 AM T Hospital Encounter Department of Radiology, [facility], in [place], [place] 200 [place] [address] Jayjay Pak PFeiAFei-CFei [address] [place] [phone] Follow Up Examination Status Post Surgery; Peripheral [...] How often do you attend confucianism or mormonism serv ices? Never 03/24/2021 Do [...] Answer Date Recorded PHQ-2 Score 0 10/20/2018 [facility] - [...] Sex Assigned at Male 03/24/2021 8:13 PM RESPOOLER Legal Sex Male 12:04 AM RESPOOLER Gender Identity Male 08/31/2019 2:40 PM CDT [...] ONE CAPSULE BY MOUTH EVERY DAY RETIREMENT 01/14/2022 nortriptyline (PAMELOR) 50 mg capsule Take [...] (Latest Contact Info) Description 04/03/2024 11:30 AM RESPOOLER Hospital Encounter Post Anesthesia Care Unit in [address] [phone] Kemar Velásquez M.B.B.S. 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 [address] [place] [phone] IR ENDOVASCULAR ANGIOPLASTY STENT LOWER EXTREMITY, right femoral access 04/04/2024 7:40 AM RESPOOLER Hospital Encounter Post Anesthesia Care Unit in [address] [phone] Kemar Velásquez M.B.B.S. 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) 04/04/2024 7:40 AM RESPOOLER documented as of this encounter Procedures Procedure Name Priority Date/Time Associated Diagnosis Comments US LOWER EXTREMITY ARTERIES BILATERAL RAD - Routine (most inpatients and all outpatients) 03/05/2024 1:02 PM CDT Follow Up Examination Status Post Surgery Peripheral Arterial Disease (HCC) documented in this encounter Results * US Lower Extremity Arteries Bilateral (03/05/2024 1:02 PM CDT) Anatomical Region Laterality Modality Lower Extremity, Ultrasound RST LOS, Ultrasound ARZ LOS, Ultrasound FLA LOS, Procedural, Vascular Interventional NWWI LOS Bilateral Ultrasound Impressions 03/05/2024 3:18 PM CDT RIGHT: Patent superficial femoral artery stents. New stenoses within the stents and in the holy cross distal SFA below the stents. LEFT: Unchanged stenosis of the holy cross proximal superficial femoral artery. Patent mid SFA stents with new stenosis at the proximal end point. Worsening stenosis in the holy cross distal SFA. Similar stenoses in the popliteal [...] femoral: Interval development of stenosis within the holy cross SFA below the stents. 451 cm/s today, [...] femoral: Focally elevated Doppler velocities within the holy cross distal SFA (128 cm/s today, previously 100 [...] New stenoses within thestents and in the holy cross distal SFA below the stents. LEFT: Unchanged stenosis of the holy cross proximal superficial femoralartery. Patent mid SFA stents with new stenosis at the proximal end point.Worsening stenosis in the holy cross distal SFA. Similar stenoses in thepopliteal artery and tibioperoneal trunk. Severely dampened Doppler waveforms at the ankle. us Jayjay Pak P.A.-C. IMSophie US PROCEDURES Final Result documented in this encounter Visit Diagnoses [...] documented as of this encounter Care Teams Hat Finisher Relationship Specialty Start Date End Date Elsewhere, Pcp PCP - General Family Medicine 01/29/20 documented as of this encounter
--- OUTSIDE RECORDS SUMMARY | 2024-03-20 10:05 | XMS_ITS | Encounter Summary ---
Author Organization [facility] Address [address] [place] [address] Care Team Providers Care Crystal Flat Grinder Name Role Phone Elsewhere, Pcp Primary Care Provider Unavailabl e Reason for Referral * MRI/CAT/PET Scan (Routine) - Closed Specialty Diagnoses / Procedures Referred By Robi hong Referred To Contact Radiology Diagnoses Follow Up Examination Status Post Surgery Peripheral Arterial Disease (HCC) Wound Foot Open Subsequent Left Wound Foot Open Subsequent Right Procedures CT Abd Pelvis Angio and Lower Ext Runoff Bilat with IV Contrast Jayjay Pak, P.A.-CFei 200 [place] [address] Phone: tel: fax: [facility] Referral ID Status Reason Start Date Expiration Date Visits Re quested Visits Authorized [id number] Closed 03/07/2024 03/07/2025 1 1 Reason for Visit * MRI/CAT/PET Scan (Routine) - Closed Specialty Diagnoses / Procedures Referred By Contac hal Referred To Contact Radiology Diagnoses Follow Up Examination Status Post Surgery Peripheral Arterial Disease (HCC) Wound Foot Open Subsequent Left Wound Foot Open Subsequent Right Procedures CT Abd Pelvis Angio and Lower Ext Runoff Bilat with IV Contrast Jayjay Pak, PFeiA.-CFei [address] [place] [address] Phone: tel: fax: [facility] Referral ID Status Reason Start Date Expiration Date Visits Re quested Visits Authorized [id number] Closed 03/07/2024 03/07/2025 1 1 Encounter Details Date Type Department Care Team (Latest Contact Info) Description 03/09/2024 2:02 PM CDT - 03/09/2024 6:24 PM CDT Hospital Encounter Department of Radiology, [facility], in [place], [place] [address] [place] [address] Jayjay Pak P.A.-C. [address] [place] [address] Follow Up Examination Status Post Surgery; Peripheral Arterial Disease (HCC); Wound Foot Open Subsequent Left; Wound Foot Open Subsequent Right Discharge Disposition: Home or Self Care Social [...] How often do you attend latter-day or presybeterian serv ices? Never 03/24/2021 Do [...] Score 0 10/20/2018 [facility] - Occupational Stress Questionnaire Answer Date [...] your living situation today? I have a [facility] place to live 10/26/2022 Education Answer Date Recorded What is the highest level of school you have completed or the highest degree you have received? 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 540 capsule 3 06/17/2023 calcium citrate (Calcitrate) 950 mg (200 mg calcium) tablet Take by mouth daily with morning meal. doxepin (SINEquan) 25 mg capsule Take 25 mg by mouth 2 (two) times a day. DULoxetine (CYMBALTA) [address] capsule Take [...] patient report. 45 tablet 3 09/13/2023 5 methocarbamoL (Robaxin) 750 mg tablet Take 750 mg by mouth 3 (three) times a day as needed for muscle spasms. minocycline (MINOCIN,DYNACIN ) 100 mg capsule TAKE ONE CAPSULE BY MOUTH TWICE A DAY FOR 10 DAYS AND THEN TAKE ONE CAPSULE BY MOUTH EVERY DAY DETENTION 01/14/2022 multivitamin renal failure (Dialyvite) 50-0.5 mg per tablet Take 1 tablet by mouth daily. nortriptyline (PAMELOR) 50 mg capsule Take 100 [...] 03/25/2021 4 documented as of this encounter Nursing Notes * Tory Fulton, R.N. - 03/09/2024 2:45 PM CDT Outpatient, keeping PIV in for later exam or refused to keep in for later exam requiring PIV: Is PIV being left in? YES If no, did patient refuse? NO Why is PIV being left in? Another procedure/exam scheduled for today which requires a PIV Name and role of person notified in receiving area: mri documented in this encounter Plan of Treatment Upcoming Encounters Date Type Department Care Team (Latest Contact Info) Description 04/03/2024 11:30 AM SPECIAL EDUCATION SCIENCE TEACHER Hospital Encounter Post Anesthesia Care Unit in [address] [phone] Kemar Velásquez M.B.B.S. 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 [address] [place] [phone] IR ENDOVASCULAR ANGIOPLASTY STENT LOWER EXTREMITY, right femoral access 04/04/2024 7:40 AM SPECIAL EDUCATION SCIENCE TEACHER Hospital Encounter Post Anesthesia Care Unit in [address] [phone] Kemar Velásquez M.B.B.S. 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) 04/03/2024 11:30 AM SPECIAL EDUCATION SCIENCE TEACHER ANGIOPLASTY/STENT ENDOVASCULAR FEMORAL AND/OR POPLITEAL AND/OR TIBIAL ARTERY Peripheral Arterial Disease (HCC) 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) 04/04/2024 7:40 AM SPECIAL EDUCATION SCIENCE TEACHER documented as of this encounter Procedures Procedure Name Priority Date/Time Associated Diagnosis Comments CT ABD PELVIS ANGIO AND LOWER EXT RUNOFF BILAT WITH IV CONTRAST RAD - Routine (most inpatients and all outpatients) 03/09/2024 3:50 PM CDT Follow Up Examination Status Post Surgery Peripheral Arterial Disease (HCC) Wound Foot Open Subsequent Left Wound Foot Open Subsequent Right CREATININE, POCT, B Routine 03/09/2024 3:06 PM CDT CREATININE, POCT, B Routine 03/09/2024 3:06 PM CDT documented in this encounter Results * CT Abd Pelvis Angio and Lower [...] mural thrombus causing moderate stenosis (series 5, [id number]). Moderate to severe stenosis distal to the [...] in the mid left SFA (series 5, [id number]) over short segment the level of the [...] (ABNORMAL) Creatinine, POCT (03/09/2024 3:06 PM CDT) Pathologist [facility] Creatinine, POCT, B 6.4(H) 0.7 - 1.4 mg/dL 03/09/2024 3:07 PM CDT PCDT Comment: ----ADDITIONAL INFORMATION---- Performed at the Point of Care Blood 03/09/2024 3:06 PM CDT 03/09/2024 3:08 PM CDT us Unknown Provider LAB POCT ORDERABLES - DEVICE Fi nal Result Performing Organization Address [facility] de Phone Number [facility] PERFORMING LABS [address] [place] [address], [facility] PCDT [facility] POC [address] [place] [address] * (ABNORMAL) Creatinine, POCT (03/09/2024 3:06 PM CDT) [facility] Estimated GFR (eGFR), POCT <15(L) >=60 mL/min/BSA 03/09/2024 3:08 PM CDT PCMO Comment: Estimated GFR calculated using the 2020 CKD_EPI creatinine equation. Blood 03/09/2024 3:06 PM CDT 03/09/2024 3:08 PM CDT us Unknown Provider LAB POCT ORDERABLES - DEVICE Fi nal Result Performing Organization Address [facility] Co de Phone Number [facility] RELIGION OUTPATIENT LABS [address] [place] [address], [facility] PCMO [facility] POC [address] [place] [address] documented in this encounter Visit Diagnoses Diagnosis Follow Up Examination Status Post Surgery Peripheral Arterial Disease (HCC) Wound Foot Open Subsequent Left Wound Foot Open Subsequent Right Peripheral Arterial Disease (HCC) 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) Peripheral Arterial Disease (HCC) 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) Peripheral Arterial Disease (HCC) 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) Peripheral Arterial Disease (HCC) 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) documented in this encounter Administered Medications Inactive Administered Medications - up to 3 most recent administrations Medication Order MAR Action Action Date Dose Rate Site iopromide 370 mg iodine/mL injection 1-162 mL (Ultravist) 1-162 mL, intravenous, Once in imaging, contrast, Starting on Tue03/09/24 at 1439, For 1 dose, Imaging Protocol Orders, Dose per Radiant Medication Guidelines Given 03/09/2024 3:27 PM CDT 145 mL sodium chloride (PF) 0.9 % injection 1-100 mL 1-100 mL, intravenous, Once, On Tue03/09/24 at 1500, For 1 dose, Imaging Protocol Orders, Dose per Radiant Medication Guidelines Given 03/09/2024 3:27 PM CDT 30 mL documented in this encounter Additional Health Concerns Assessment Noted Time PHQ-9 Depression Total Score: 3 01/04/20 18 10:38 AM CDT documented as of this encounter Care Teams Crystal Flat Grinder Relationship Specialty Start Date End Date Elsewhere, Pcp PCP - General Family Medicine 01/29/20 documented as of this encounter
--- OUTSIDE RECORDS SUMMARY | 2024-03-20 10:05 | XMS_ITS | Encounter Summary ---
Author Organization [facility] Address [address] [place] [id number] Care Team Providers Care Institutional Research Coordinator Name Role Phone Elsewhere, Pcp Primary Care Provider Unavailabl e Reason for Visit * Outpatient (Routine) - Closed Specialty Diagnoses / Procedures Referred By Robi t Referred To Contact Vascular Medicine Diagnoses Peripheral Arterial Disease (HCC) Wound Foot Open Subsequent Left Wound Foot Open Subsequent Right Jayjay Pak, Laine-Jennifer [address] [place] [phone] Phone: tel: fax: [facility] Referral ID Status Reason Start Date Expiration Date Visits Re quested Visits Authorized [id number] Closed 03/06/2024 09/05/2025 1 1 Encounter Details Date Type Department Care Team (Late st Contact Info) Description 03/12/2024 8:00 AM CDT Comprehensive Visit Department of Vascular Medicine in [place], [place] [address] [place] [phone] Kimmy Buckner APRN, C.N.P., D.N.P. [address] [place] [phone] Wound Foot Open Subsequent Right (Primary Dx); [...] drink = 0.6 oz pur e alcohol) [facility] Utilities Answer Date Recorded In the past 12 months has th e electric, gas, oil, or water company threatened to [...] How often do you attend episcopal or hindu serv ices? Never 03/24/2021 Do [...] have a [facility] place to live 03/11/2024 Education Answer Date Recorded What is the highest level of school you have completed or the highest degree you have received? 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/2021 8:13 PM SOCIAL MEDIA DIRECTOR Legal Sex Male 12:04 AM SOCIAL MEDIA DIRECTOR Gender Identity Male 08/31/2019 2:40 PM CDT Sexual Orientation Straight 08/31/2019 2: 40 PM CDT documented as of this encounter Last Filed Vital Signs Vital Sign Reading Time Taken Comments Blood Pressure 231/79 03/12/2024 7:50 AM CDT Pulse 93 03/12/2024 7:50 AM CDT Temperature 36.5 ??C (97.7 ??F) 03/12/2024 7:50 AM CD T Respiratory Rate - - Oxygen Saturation - - Inhaled Oxygen Concentration - - Weight 89.3 kg (196 lb 13.9 oz) 03/12/2024 7:50 AM CDT Height - - Body Mass Index 29.03 03/05/2024 2:59 PM CDT documented in this encounter Patient Instructions * Patient Instructions* Sejal Ann R.N. - 03/12/2024 8:00 AM CDT 03/12/2024 Discussed results of recent MRI in clinic today- no bone infection indicated. Anytime you are walking on the foot, you are preventing it from healing. We recommend not being on your foot for no more than 30 minutes a day. Please do not walk around barefoot. You need protectionon your feet. Wearing shoes in the house is highly recommended. Try wearing the custom inserts in adifferent shoe and see how that goes. Footwear options were discussed in clinic to help off load pressure: Darco or Defender boot. Also recommend using devices to help off load: knee scooter or a walker. We don't recommend the use of Dakins for chronic wounds. We prefer the use of Vashe, wound cleanser. Discussed compression use (EdemaWear), that provides light compression to stimulate the lymphatics.Please call to order at couple sets. Compression [employer], [employer] [address] [place] [address], [address] [place] [address] Email: [email or web address] Discussed using wool socks (Petit wool socks) or the use of Rooke boot. Wound Dressing: Left leg and left big toe Wash hands. Remove old dressing. Cleanse ulcer base with rough gauze and hypochlorous acid (VASHE) or acetic acid solution (recipe below) in a gentle, circular motion. Pat dry. Apply critic aid clear barrier ointment to skin surrounding wound. Apply Iodosorb/Hydrogel (75:20) mixture to ulcer base (There will be some staining of the skin fromthe Iodosorb). Cover with non-woven (soft) gauze, secure with cover roll stretch tape. Change dressing once a day to every other day. Wound Dressing: Right foot (try to keep keep dry as possible) Wash hands. Remove old dressing. Cleanse wound base with rough gauze and hypochlorous acid (VASHE) wound cleanser in a gentle, circular motion. Moisten rough (woven) with hypochlorous acid (VASHE) wound cleanser. Apply gauze directly to wound base. Allow gauze to sit for 10 minutes. Remove gauze dressing and pat dry. Apply aquacel to the wound base. Cover with non-woven (soft) gauze. Secure with cover roll stretch tape. Apply Edemawear (spandage was applied in clinic today). Change dressing daily. Compression: Both Legs Please get the small NAV[place] stripe. Edemawear should be worn over your wound dressing. Apply your edemawear from the base of your toes to just below the bend of the knee. Wear your edemawear day and night. It should be removed daily for bathing and repositioning. Edemawear should be hand or machine washed in cold water and hung to dry. Bloodstains may be removed with hydrogen peroxide. The approximate life of EdemaWear being worn daily is around 4-6 months. Skin Care Apply a non-perfumed moisturizing cream to your legs and feet. Recommended brand is Cera Ve. Take a piece of folded, dry rough gauze and gently floss between your toes. Bathing: Do not soak wounds. This includes swimming, lakes, bathtubs, hot tubs, etc. Right Foot: Do not get wound wet in the shower or bath. Cover with plastic or keep limb outside of the shower/tub. Left foot/Leg may get wet. You can shower with dressings and then remove the wet/old dressings and replace with clean/new dressings. Wound Care 101: Watch for signs of infection: Increased redness, swelling, odor, drainage or pain. Elevated blood sugars or elevated temperature may indicate infection. Seek medical attention immediately with any ofthese signs. Check lower extremities/feet daily for new wounds. Never walk barefoot/stocking foot. Always wear protective footwear when walking. Do not use tape or band-aids on skin unless recommended by provider. Do not leave wounds open to air. Diet and Supplement Recommendations: Monitor your A1C. Less than 7% is ideal for wound healing. Protein helps with wound healing. Increase your protein intake gradually to a goal of 4-5 servings each day. Protein sources include dairy, nuts, lean meats, eggs, etc. You could also supplement withEnsure, Boost, or other protein drinks. Recipes: Acetic Acid Recipe - 3 tablespoons of white vinegar to 1 quart of distilled water. Please use exact measurements. Do not estimate. Do not add solution back to bottle. May keep in refrigerator for up to 1 week. Supplies: This order is good for 3 months. It can be refilled each month. This order can be filled at the [facility] or other durable medical equipment store. Directions to the [facility]: Take the elevator down to the Subway level. Go straight out of the elevator. The [facility] will be just past the [address] on the left. [facility], Address: [address] [place] [address]. . The [facility] also has a Mail-Order Service available to most states. [phone] Nearly all these items can be found for purchase online (if insurance does not provide coverage foryour dressings). Most standard drug stores do not carry wound supplies. Durable medical supply stores do. We cannot renew a supply order for you after three months unless you are re-assessed by a wound care provider, so be sure to come to your next appointment. Tell the [facility] when your next appointment is. Your insurance will not pay for supplies unless you are seen at least every month. Edemawear can be found on [email or web address] Vashe can be found at the [facility], online on P[employer], Aqua[employer]ok, or [employer]. It is sometimes found in stores at [employer]. If you have any wound care questions or concerns please contact the Vascular Center at [phone]. If you need to cancel, reschedule, or schedule a wound care appointment please call [phone]. Provider Signature Kimmy Buckner APRN, C.N.P., Kylah.N.P. documented in this encounter Consult Notes * Kimmy Buckner APRN, C.N.P., EstivenNFeiP. - 03/12/2024 8:00 AM CDT SUBJECTIVE REFERRAL INFORMATION Jayjay Pak P.A.-C. [address] [place] [phone] CHIEF COMPLAINT/REASON FOR VISIT slow healing wounds in setting of worsening PAD, TcPO2s; xrays pending for osteo; seeing vascular surgery. Patient seen at the Vascular [facility] Center. HISTORY OF PRESENT ILLNESS Mr. Walton is a 74 y.o. male that I am seeing today for the first time at [facility] for bilateral lower extremity ulcerations. Referred by Jayjay Pak P.A.-C.. Medical history significant for peripheral arterial disease, TIA (2009), coronary artery disease with myocardial ischemia, diabetes mellitus type 2, peripheral neuropathy, bilateral carotid artery stenosis, hypertension,dialysis dependent, and status post bilateral toe amputations. Mr. Walton has been followed in the [facility] for lower extremity peripheral arterial disease. He has had multiple interventions for critical limb ischemia which includes catheterization of the left SFA third order vessel with left [...] left external iliac artery stenting May 11, [address] Velásquez. More recently, he was seen last week with worsening concerns of peripheral arterial disease/TcPO2s and lower extremity ulcerations. Today, Mr. Walton is accompanied by his and daughter. He has bilateral lower extremity ulcerations. His most concerning ulceration is the right plantar 1st MTP ulceration. This has been presentsince approximately April 2023/May 2023. He has been followed in [facility]. They have been using Aquacel. He was also being undergoing skin grafts every 2 weeks. He also has left lower extremity ulcerations that initially started as a blister and subsequently developed into ulcerations. They are not performing any dressings to the left lower extremities. There cleansing bilateral lower extremities with Dakin solution.He does have custom diabetic inserts, to which he was not wearing due to he feels unbalanced. Therefore, he was wearing [id number] shelves. He was heavily walking throughout the day. He denies any overt signs of infection. Continues to experience claudication symptoms ambulation. He was scheduled to see vascular surgery, Dr. Velásquez this afternoon regarding his CT abdomen pelvis angiogram with bilateral runoff. Bilateral foot x-ray was completed on 03/07/2024 and of the right lower extremity nonspecific concerns for degenerative joint disease versus early osteomyelitis. MR of the right foot was completed on03/09/2024 and displayed no pedro osteomyelitis. No soft tissue abscess. However there is a small plantar infectious/inflammatory first MTP ulceration without clear penetration into the joint. Correlate clinically if the ulcer probes deep, as if this does probe deep, then the aforementioned inflammatory findings about the first MTP joint could have a contribution from sequelae of septic arthritis. CT abdomen pelvis with runoff displayed of the of the bilateral extremity diffuse atherosclerotic disease. REVIEW OF SYSTEMS A comprehensive review of systems was negative except pertinent positives in the HPI. The following portions of the patient's history were reviewed and updated as appropriate: allergies, current medications, family history, medical history, social history, surgical history, problem list, labs, diagnostics tests. I reviewed the pertinent clinical notes in the electronic health record. OBJECTIVE PHYSICAL EXAM Vitals: 03/12/24 0750 BP: (!) 231/79 Pulse: 93 Temp: 36.5 ??C Body mass index is 29.03 kg/m??. General: Patient appears in no acute distress. Head: Atraumatic and normocephalic. Vessels: Left Dorsalis Pedis: non-palpable (0); Right Dorsalis Pedis non- palpable (0) Left Posterior Tibial: non-palpable (0); Right Posterior Tibial non-palpable (0) Extremities: Trace nonpitting edema noted in right lower extremity. Warm bilateral lower extremities. Dry lower extremities. Mental: Pleasant, alert, and oriented with normal affect. Skin: Dry and pink with good turgor. No rashes seen. Wound Review: Location: Right 1st MTP ulceration After sharp debridement, the ulceration base appears mix of granular tissue and slough. Periwound is pink. Small serosanguineous drainage. No tracking, tunneling or undermining. No odor. No sign of soft tissue infection. Wound review: Location: Left great toe, and left lower extremity ulcerations No sharp debridement, the ulcerations are dried scab tissue, with granulation tissue and slough. Scant serosanguineous drainage. No tracking, tunneling, or undermining. No odor. No signs of soft tissue infection. PROCEDURE DETAILS As indicated, sharp debridement was performed today removing devitalized tissue from the following ulcers/wounds: Right 1st MTP ulceration: Topical anesthetic (Lidocaine):2%. Debridement performed using: Forceps, Curette , and Iris scissors . Level of Debridement: Full thickness. . Complications: Minimal bleeding with debridement today, easily controlled.. Hypochlorous acid (Vashe) compress was applied directly to ulceration base(s) post-sharp debridement for a minimum of 5 minutes to reduce microbial contamination and restore acid-base balance. INFORMED CONSENT: Discussed the risks, benefits, alternatives, and the necessity of other members of the healthcare team participating in the procedure. All questions answered and consent given. DIAGNOSTICS All labs and diagnostic studies/imaging were reviewed. Bilateral foot x-ray was completed on 03/07/2024 and of the right lower extremity nonspecific concerns for degenerative joint disease versus early osteomyelitis. MRI of the right foot was completed on 03/09/2024 and displayed no pedro osteomyelitis. No soft tissue abscess. However there is a small plantar infectious/inflammatory first MTP ulceration without clear penetration into the joint. Correlate clinically if the ulcer probes deep, as if this does probe deep, then the aforementioned inflammatory findings about the first MTP joint could have a contribution from sequelae of septic arthritis. CT abdomen pelvis with runoff displayed of the of the bilateral extremity diffuse atherosclerotic disease. Right common femoral artery: Mixed calcified and noncalcified plaque causes mild stenosis. Right profunda femoral artery: Patent with mild stenosis at the origin. Right superficial femoral artery: Severe stenosis in the mid superficial femoral artery proximal tothe stent (series 5, image 471). Within the stents, there is mural thrombus causing moderate stenosis (series 5, image 526). Moderate to severe stenosis distal to the stent in the distal right superficial femoral artery (series 5, image 590). Right popliteal artery: Scattered plaque causing multifocal mild stenoses Tibial arteries: The anterior tibial artery is likely mildly narrowed at the origin and diffusely disease distally. The anterior tibial artery is difficult to evaluate, however appears patent supplying the dorsalis pedis artery. The posterior tibial artery is patent to the level the foot supplying the plantar arch, however diffusely diseased. The peroneal artery appears to be patent to the level the ankle, however diffusely diseased. Noninvasive arterial studies/TcPO2s completed on 03/05/2024 and displayed Right: Doppler Waveforms:Abnormal signals starting at or above the superficial femoral level. Resting Index: MIMI (PT)- 0.48 MIMI (DP)- 0.41 TBI- Not done due to ulcer/amputation. TcPO2: Values as noted. Left: Doppler Waveforms: Abnormal signals starting at or above the common femoral level. Resting Index: MIMI (PT)- 0.33 MIMI (DP)- 0.38 TBI- Not done due to ulcer/no signal. TcPO2: Values as noted. Conclusions: Right: Severe, multilevel arterial occlusive disease [...] is severe, with worsening TcPO2 values bilaterally. ASSESSMENT / PLAN #1 Wound Foot Open Subsequent Right #2 Peripheral Arterial Disease (HCC) #3 Neuropathy Peripheral #4 Wound Foot Open Subsequent Left #5 Diabetes Mellitus Type 2 With Other Circulatory Complication (HCC) Mr. Walton presents today for initial consult for bilateral lower extremity ulcerations in the setting of significant lower extremity arterial disease. The right plantar 1st MTP ulceration is of concern. The MRI was negative for osteomyelitis but if clinically correlated, concerns for septic arthritis if tracking is present. Reassuring, today upon physical exam, there is no tracking, tunneling, or undermining of the area of ulceration. We discussed, if the ulceration fails to improve even if blood supply is restored, would repeat MRI and then be seen with Orthopedic surgery for evaluation/amputation. He follows at the [facility] wound care clinic. In review of his photos from May 2023, the ulceration has significantly improved. He also has right lower extremity ulcerations that developed due to blistering. For the right plantar 1st MTP ulceration would recommend continuing with Aquacel. For the left lower extremity ulcerations would recommend Iodosorb and Hydrogel in a 75/25 mixture. Dressings to be changed daily. Prior to reapplication, apply a Vashe compress with rough gauze for 10 to 15 minutes. Recommend use of edema wear ([place] stripe) and elevation as tolerated. Recommend offloading pressureto the ulceration throughout the day. Recommend no more than 15 - 30 minutes on feet per day. Recommend use of orthotics and assistive devices (knee scooter, crutches) to offload and reduce pressure.Offloading pressure aids in blood supply to the ulceration, thus augmenting ulceration healing. Offered use of a knee scooter, patient politely declined. He desires to trial his diabetic inserts intoa different pair of shoes. We discussed if this does not wear, would recommend the use of a defender boot. He will let me know if he needs a prescription/documentation for the use of defender boot. Provided prescription for a bilateral Rooke boot to aid in microvascular circulation. Alternativelywe could wear bilateral wool socks. Should avoid walking barefoot, including stocking footed. He was scheduled to see vascular surgery, Dr. Velásquez, later this morning. Recommended to watch for signs and symptoms of infection; increased pain, swelling, redness, or drainage. If occurs, should seek medical attention. Follow-up: Wound RN visit: None Wound Provider visit: As needed. Desires to returned to [facility] for ongoing wound care. He and family will let me know if he desires a return visit to [facility] vascular [facility]. It was a pleasure to see Mr. Walton. Please see the After Visit Summary and/or Patient Instructions outlined in the encounter for details regarding wound care instructions. Patient ready to learn. No apparent learning barriers were identified. Explained diagnosis and treatment plan. Patient verbalized understanding of all the recommendations and was in agreement with the plan. If any additional questions or concerns arise in the interim, please contact the Vascular Wound Center. Kimmy Buckner APRN, William.N.Xi, D.N.P. Total time spent with patient and reviewing clinical documents: 50 minutes. Time spent in counselin minutes. Billing does not reflect debridement time. documented in this encounter Plan of Treatment Upcoming Encounters Date Type Department Care Team (Latest Contact Info) Description 04/03/2024 11:30 AM SOCIAL MEDIA DIRECTOR Hospital Encounter Post Anesthesia Care Unit in [address] [phone] Kemar Velásquez M.B.B.S. 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 [address] [place] [phone] IR ENDOVASCULAR ANGIOPLASTY STENT LOWER EXTREMITY, right femoral access 04/04/2024 7:40 AM SOCIAL MEDIA DIRECTOR Hospital Encounter Post Anesthesia Care Unit in [address] [phone] Kemar Velásquez M.B.B.S. [address] [place] [phone] Peripheral Arterial Disease (HCC); 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) 04/04/2024 7:40 AM SOCIAL MEDIA DIRECTOR - 04/04/2024 11:24 AM SOCIAL MEDIA DIRECTOR Surgery [facility] OR [address] [place] [phone] Kemar Velásquez M.B.B.S. 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..] MAR Action Action Date Dose Rate Site lidocaine 2 % gel 1 Application (Xylocaine) 1 Application, topical, As needed, mild pain or score 1-3 of 10, wound debridement, Starting on Tue03/12/24 at 0826, For 4 hours, Saturate gauze dressing and place onto wound base(s). Assess patient's pain level after 5-10 minutes. If pain greater than 4, continue to lidocaine 4%. Given 03/12/2024 8:27 AM CDT 1 Application documented in this encounter Additional Health Concerns Assessment Noted Time PHQ-9 Depression Total Score: 3 01/04/20 18 10:38 AM CDT documented as of this encounter Care Teams Institutional Research Coordinator Relationship Specialty Start Date End Date Elsewhere, Pcp PCP - General Family Medicine 01/29/20 documented as of this encounter
--- OUTSIDE RECORDS SUMMARY | 2024-03-20 10:05 | XMS_ITS | Encounter Summary ---
Author Organization [facility] Address [address] [place] [address] Care Team Providers Care Hog Cutter Name Role Phone Elsewhere, Pcp Primary Care Provider Unavailabl e Reason for Referral * Outpatient (Routine) - Closed Specialty Diagnoses / Procedures Referred By Robi hong Referred To Contact Vascular Medicine Diagnoses Peripheral Arterial Disease (HCC) Wound Foot Open Subsequent Left Wound Foot Open Subsequent Right Jayjay Pak P.A.-C. [address] [place] [address] Phone: tel: fax: [facility] Referral ID Status Reason Start Date Expiration Date Visits Re quested Visits Authorized [id number] Closed 03/06/2024 09/05/2025 1 1 * Outpatient (Routine) - Closed Specialty Diagnoses / Procedures Referred By Contac t Referred To Contact Vascular Surgery Diagnoses Peripheral Arterial Disease (HCC) Jayjay Pak P.A.-C. [address] [place] [phone] Phone: tel: fax: [facility] Referral ID Status Reason Start Date Expiration Date Visits Re quested Visits Authorized [id number] Closed 03/06/2024 09/05/2025 1 1 Encounter Details Date Type Department Care Team (Late st Contact Info) Description 03/06/2024 Orders Only Department of Vascular Medicine in [place], [place] [address] [place] [address] Jayjay Pak P.A.-C. [address] [place] [address] Peripheral Arterial Disease (HCC) (Primary Dx); Wound Foot Open Subsequent Left; Wound Foot Open Subsequent Right Social History Tobacco Use Types Packs/Day Years [...] How often do you attend buddhist or temple serv ices? Never 03/24/2021 Do [...] 0 10/20/2018 [facility] Occupat ional [facility] - Occupational Stress Questionnaire Answer Date [...] your living situation today? I have a [facility] place to live 10/26/2022 Education Answer Date Recorded What is the highest level of school you have completed or the highest degree you have received? Some college, no degree 03/24/2021 Sex and Gender Information Value Date Recorded Sex Assigned at Male 03/24/2021 8:13 PM MILK HANDLER Legal Sex Male 12:04 AM MILK HANDLER Gender Identity Male 08/31/2019 2:40 PM CDT Sexual Orientation Straight 08/31/2019 2: 40 PM CDT documented as of this encounter Plan of Treatment Upcoming Encounters Date Type Department Care Team (Latest Contact Info) Description 04/03/2024 11:30 AM MILK HANDLER Hospital Encounter Post Anesthesia Care Unit in [address] [phone] Kemar Velásquez M.B.B.S. 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 [address] [place] [phone] IR ENDOVASCULAR ANGIOPLASTY STENT LOWER EXTREMITY, right femoral access 04/04/2024 7:40 AM MILK HANDLER Hospital Encounter Post Anesthesia Care Unit in [address] [phone] Kemar Velásquez M.B.B.S. 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) 04/04/2024 7:40 AM MILK HANDLER Scheduled Referrals Name Type Priority Associated Diagnoses Orde r Schedule Vascular Surgery - Direct consult (clinic) Outpatient Referral Routine Peripheral Arterial Disease (HCC) Expected: 03/12/2024, Expires: 06/06/2025 Vascular Medicine - Vascular wound care consult (clinic) Outpatient Referral Routine Peripheral Arterial Disease (HCC) Wound Foot Open Subsequent Left Wound Foot Open Subsequent Right Expected: 03/12/2024, Expires: 06/06/2025 documented as of this encounter Visit Diagnoses Diagnosis Peripheral Arterial Disease (HCC)- Primary Wound Foot Open Subsequent Left Wound Foot [...] as of this encounter Care Teams Hog Cutter Relationship Specialty Start Date End Date Elsewhere, Pcp PCP - General Family Medicine 01/29/20 documented as of this encounter
--- OUTSIDE RECORDS SUMMARY | 2024-03-20 10:05 | XMS_ITS | Encounter Summary ---
Author Organization [facility] Address [address] [place] [address] Care Team Providers Care Mechanical Maintenance Name Role Phone Elsewhere, Pcp Primary Care Provider Unavailabl e Reason for Referral * Outpatient (Routine) - Closed Specialty Diagnoses / Procedures Referred By Contac t Referred To Contact Diagnoses Peripheral Arterial Disease (HCC) Wound Foot Open Subsequent Left Wound Foot Open Subsequent Right Procedures DX Foot Bilateral 3+ Views Jayjay Pak, PFeiA.-CFei [address] [place] [address] Phone: tel: fax: [facility] Region Referral ID Status Reason Start Date Expiration Date Visits Re quested Visits Authorized [id number] Closed 03/05/2024 03/05/2025 1 1 Reason for Visit * Outpatient (Routine) - Closed Specialty Diagnoses / Procedures Referred By Contac t Referred To Contact Diagnoses Peripheral Arterial Disease (HCC) Wound Foot Open Subsequent Left Wound Foot Open Subsequent Right Procedures DX Foot Bilateral 3+ Views Jayjay Pak, P.A.-CFei [address] [place] [address] Phone: tel: fax: [facility] Region Referral ID Status Reason Start Date Expiration Date Visits Re quested Visits Authorized [id number] Closed 03/05/2024 03/05/2025 1 1 Encounter Details Date Type Department Care Team (Latest Contact Info) Description 03/07/2024 10:12 AM CDT - 03/07/2024 11:59 PM CDT Hospital Encounter Department of Radiology in [place], [place] [address] [place] [address] Jayjay Pak P.A.-C. [address] [place] [address] Peripheral Arterial Disease (HCC); Wound Foot Open [...] How often do you attend baptist or advent serv ices? Never 03/24/2021 Do [...] [facility] 10/26/2022 Education Answer Date Recorded What is the highest level of school you have completed or the highest degree you have received? 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 [address] [place] [phone] IR ENDOVASCULAR ANGIOPLASTY STENT LOWER EXTREMITY, right femoral access 04/04/2024 7:40 AM TELEVISION NEWS REPORTER Hospital Encounter Post Anesthesia Care Unit in [address] [phone] Kemar Velásquez M.B.B.S. 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) 04/04/2024 7:40 AM TELEVISION NEWS REPORTER documented as of this encounter Procedures Procedure Name Priority Date/Time Associated Diagnosis Comments DX FOOT BILATERAL 3+ VIEWS RAD - Routine (most inpatients and all outpatients) 03/07/2024 10:34 AM CDT Peripheral Arterial Disease (HCC) Wound Foot Open Subsequent Left Wound Foot Open Subsequent Right documented in this encounter Results * DX Foot Bilateral 3+ Views (03/07/2024 [...] IMG DIAGNOSTIC IMAGING P ROCEDURES Final Result documented in this encounter Visit Diagnoses Diagnosis Peripheral Arterial Disease (HCC) Wound Foot Open [...] as of this encounter Care Teams Mechanical Maintenance Relationship Specialty Start Date End Date Elsewhere, Pcp PCP - General Family Medicine 01/29/20 documented as of this encounter
--- OUTSIDE RECORDS SUMMARY | 2024-03-20 10:05 | XMS_ITS | Encounter Summary ---
Author Organization [facility] Address [address] [place] [address] Care Team Providers Care Chairlift Operator Name Role Phone Elsewhere, Pcp Primary Care Provider Unavailabl e Reason for Referral * MRI/CAT/PET Scan (Routine) - Closed Specialty Diagnoses / Procedures Referred By Branac t Referred To Contact Radiology Diagnoses Follow Up Examination Status Post Surgery Peripheral Arterial Disease (HCC) Wound Foot Open Subsequent Left Wound Foot Open Subsequent Right Procedures MR Foot Right without and with IV Contrast Jayjay Pak P.A.-C. 200 [place] [address] Phone: tel: fax: [facility] Referral ID Status Reason Start Date Expiration Date Visits Re quested Visits Authorized [id number] Closed 03/07/2024 03/07/2025 1 1 Reason for Visit * MRI/CAT/PET Scan (Routine) - Closed Specialty Diagnoses / Procedures Referred By Contac t Referred To Contact Radiology Diagnoses Follow Up Examination Status Post Surgery Peripheral Arterial Disease (HCC) Wound Foot Open Subsequent Left Wound Foot Open Subsequent Right Procedures MR Foot Right without and with IV Contrast Jayjay Pak P.A.-C. [address] [place] [address] Phone: tel: fax: [facility] Referral ID Status Reason Start Date Expiration Date Visits Re quested Visits Authorized [id number] Closed 03/07/2024 03/07/2025 1 1 Encounter Details Date Type Department Care Team (Latest Contact Info) Description 03/09/2024 6:25 PM CDT - 03/09/2024 11:59 PM CDT Hospital Encounter Department of Radiology, [facility], in [place], [place] [address] [place] [address] Jayjay Pak P.A.-C. [address] [place] [address] Follow Up Examination Status Post Surgery; Peripheral [...] often do you attend restorationism or hoahaoism serv ices? Never 03/24/2021 Do [...] Answer Date Recorded PHQ-2 Score 0 10/20/2018 [facility] of Occupat ional [facility] - Occupational Stress Questionnaire Answer [...] Sex Assigned at Male 03/24/2021 8:13 PM HISTOTECHNICIAN Legal Sex Male 12:04 AM HISTOTECHNICIAN Gender Identity Male 08/31/2019 2:40 PM CDT [...] ONE CAPSULE BY MOUTH EVERY DAY [facility] 01/14/2022 multivitamin renal failure (Dialyvite) 50-0.5 mg [...] (Latest Contact Info) Description 04/03/2024 11:30 AM [facility] Hospital Encounter Post Anesthesia Care Unit in [place], [place] [address] [place] [phone] Kemar Velásquez M.B.B.S. 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 [address] [place] [phone] IR ENDOVASCULAR ANGIOPLASTY STENT LOWER EXTREMITY, right femoral access 04/04/2024 7:40 AM HISTOTECHNICIAN Hospital Encounter Post Anesthesia Care Unit in [place], [place] [address] [place] [phone] Kemar Velásquez M.B.B.S. 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 Jayjay Pak P.A.-C. IMSophie MRI PROCEDURES Final Result documented in this encounter [...] MAR Action Action Date Dose Rate Site gadobutrol injection 0.01-30 mL (Gadavist) 0.01-30 mL, intravenous, Once in imaging, contrast, Starting on Tue03/09/24 at 1455, For 1 dose, Imaging Protocol Orders, Dose per Radiant Medication Guidelines Intrathecal doses greater than 0.25 mL not recommended. Given 03/09/2024 8:06 PM CDT 10 mL documented in this encounter Additional Health Concerns Assessment Noted Time PHQ-9 Depression Total Score: 3 01/04/20 18 10:38 AM CDT documented as of this encounter Care Teams Chairlift Operator Relationship Specialty Start Date End Date Elsewhere, Pcp PCP - General Family Medicine 01/29/20 documented as of this encounter
--- OUTSIDE RECORDS SUMMARY | 2024-03-20 10:05 | XMS_ITS | Encounter Summary ---
Author Organization [facility] Address [address] [place] [address] Care Team Providers Care Desulphurizer Operator Name Role Phone Elsewhere, Pcp Primary Care Provider Unavailabl e Reason for Referral * Outpatient (Routine) - Closed Specialty Diagnoses / Procedures Referred By Robi hong Referred To Contact Diagnoses Follow Up Examination Status Post Surgery Peripheral Arterial Disease (HCC) Procedures US Aorta Iliac Arteries Bilateral with Doppler Jayjay Pak P.A.-C. [address] [place] [address] Phone: tel: fax: [facility] Referral ID Status Reason Start Date Expiration Date Visits Re quested Visits Authorized [id number] Closed 01/05/2024 01/04/2025 1 1 Reason for Visit * Outpatient (Routine) - Closed Specialty Diagnoses / Procedures Referred By Robi hong Referred To Contact Diagnoses Follow Up Examination Status Post Surgery Peripheral Arterial Disease (HCC) Procedures US Aorta Iliac Arteries Bilateral with Doppler Jayjay Pak P.A.-C. [address] [place] [address] Phone: tel: fax: [facility] Referral ID Status Reason Start Date Expiration Date Visits Re quested Visits Authorized [id number] Closed 01/05/2024 01/04/2025 1 1 Encounter Details Date Type Department Care Team (Latest Contact Info) Description 03/05/2024 11:19 AM CDT - 03/05/2024 11:59 PM CDT Hospital Encounter Department of Radiology, [facility], in [place], [place] [address] [place] [address] Jayjay Pak P.A.-C. [address] [place] [address] Follow Up Examination Status Post Surgery; Peripheral [...] How often do you attend buddhist or mandaeism serv ices? 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 [address] [place] [phone] IR ENDOVASCULAR ANGIOPLASTY STENT LOWER EXTREMITY, right femoral access 04/04/2024 7:40 AM PATTERN CHANGER Hospital Encounter Post Anesthesia Care Unit in [address] [phone] Kemar Velásquez M.B.B.S. 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 2. The previously seen pala right external iliac artery stenosis is not [...] visualized. Diffusely elevated Doppler velocities within the pala external iliac artery without obvious focal stenosis. [...] definitely visualized. Diffusely elevatedDoppler velocities within the pala external iliac artery without obviousfocal stenosis. LEFT: [...] stenoses on theleft. 2. The previously seen pala right external iliac artery stenosis is notdefinitely identified today. us Jayjay Pak P.A.-C. IMG US PROCEDURES Final Result documented in this [...] documented as of this encounter Care Teams Desulphurizer Operator Relationship Specialty Start Date End Date Elsewhere, Pcp PCP - General Family Medicine 01/29/20 documented as of this encounter
--- OUTSIDE RECORDS SUMMARY | 2024-03-20 10:05 | XMS_ITS | Encounter Summary ---
Author Organization [facility] Address [address] [place] [address] Care Team Providers Care Park Maintenance Technician Name Role Phone Elsewhere, Pcp Primary Care Provider Unavailabl e Reason for Visit * Outpatient (Routine) - Closed Specialty Diagnoses / Procedures Referred By Robi t Referred To Contact Vascular Surgery Diagnoses Peripheral Arterial Disease (HCC) Jayjay Pak, [place]io [address] [place] [phone] Phone: tel: fax: [facility] Referral ID Status Reason Start Date Expiration Date Visits Re quested Visits Authorized [id number] Closed 03/06/2024 09/05/2025 1 1 Encounter Details Date Type Department Care Team (Latest Contact Info) Description 03/12/2024 10:40 AM CDT Comprehensive Visit Division of Vascular and Endovascular Surgery in [place], [place] [address] [place] [address] Kemar Velásquez M.B.B.S. 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 Never 03/24/2021 Do [...] 0 10/20/2018 [facility] - Occupational Stress Questionnaire Answer Date [...] Assigned at Male 03/24/2021 8:13 PM SUPERVISOR CELL MAINTENANCE Legal Sex Male 12:04 AM SUPERVISOR CELL MAINTENANCE Gender Identity Male 08/31/2019 2:40 PM CDT Sexual Orientation Straight 08/31/2019 2: 40 PM CDT documented as of this encounter Patient Instructions * Patient Instructions* Stacy Correia M.S., R.N. - 03/12/2024 10:40 AM CDT OK to take aspirin, allopurinol, carvedilol, doxepin, duloxetine, minocycline, nortriptyline, and omeprazole morning of surgery. documented in this encounter Consult Notes * Kemar Velásquez M.B.B.S. - 03/12/2024 10:40 AM CDT 74 yo M who I first saw in 2017 for left leg CLTI and performed left FINISH MIXER endarterectomy with patch angioplasty along with SFA KAREEM placement with 6 mm ZILVER PTX stents. He later underwent left AT plain balloon angioplasty with 2 mm balloon and PT plain balloon angioplasty with 2.5 mm balloon. He went on to have a successful toe amputation. In 2018, he underwent right SFA KAREEM with 6 mm Zilver PTX for lifestyle limiting claudication. Also, in 2018, I performed balloon angioplasty of an in-stent stenosis of a left external iliac artery stent placed prior to my involvement by IR. Eventually, he required a 7 mm BMS for this in 2019. I last saw him in 2020 when he had no clinical symptoms of PAD and had MIMI of 0.9. Since then, he was followed in [facility]. About a year ago, he developed an ulcer on the tip of the left first toe amputation site and an ulcer on the plantar aspect of the right first MTP joint. His MIMI on the right is 0.48 and on the left is 0.38. TBI was not done due to ulceration. CTA with run-off shows multiple areas of tandem stenoses. He is on ASA and Lipitor. He does not smoke cigarettes anymore. PLAN: Patient will need bilateral lower extremity angiograms with therapeutic intent. We will do one leg at a time. His SFA/Popliteal disease will be treated with DCB/KAREEM and tibial disease treated with POBA. I anticipate significant scarring of his groins given multiple prior access procedures. documented in this encounter Plan of Treatment Upcoming Encounters Date Type Department Care Team (Latest Contact Info) Description 04/03/2024 11:30 AM SUPERVISOR CELL MAINTENANCE Hospital Encounter Post Anesthesia Care Unit in [address] [phone] Kemar Velásquez M.B.B.S. 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 [address] [place] [phone] IR ENDOVASCULAR ANGIOPLASTY STENT LOWER EXTREMITY, right femoral access 04/04/2024 7:40 AM SUPERVISOR CELL MAINTENANCE Hospital Encounter Post Anesthesia Care Unit in [address] [phone] Kemar Velásquez M.B.B.S. 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
--- OUTSIDE RECORDS SUMMARY | 2024-03-20 10:05 | XMS_ITS | Encounter Summary ---
Author Organization [facility] Address [address] [place] [phone] Care Team Providers Care Utility Agent Name Role Phone Elsewhere, Pcp Primary Care Provider Unavailabl e Encounter Details Date Type Department Care Team (Late st Contact Info) Description 03/07/2024 Orders Only Department of Vascular Medicine in [place], [place] [address] [place] [phone] Jayjay Pak, Laine-C. [address] [place] [phone] Social History Tobacco Use Types Packs/Day Years Used Date Smoking Tobacco: Former Cigarettes 1 38.9 0 05/16/1983 - 04/2022 Smokeless Tobacco: Never Alcohol Use Standard Drinks/Week Comments Not Currently 0 (1 standard drink = 0.6 oz pur e alcohol) [facility] Utilities Answer Date Recorded In the past [address] [facility] [employer], oil, or [employer] threatened to shut off services in your [...] How often do you attend samaritan or protestant serv ices? Never 03/24/2021 Do [...] Answer Date Recorded PHQ-2 Score 0 10/20/2018 [facility] - Occupational Stress [...] [facility] to live 03/11/2024 Education Answer Date Recorded What is the highest level of school you have completed or the highest degree you have received? Some college, no degree 03/24/2021 Sex and Gender Information Value Date Recorded Sex Assigned at Male 03/24/2021 8:13 PM CIVIL STRUCTURAL DESIGNER Legal Sex Male 12:04 AM CIVIL STRUCTURAL DESIGNER Gender Identity Male 08/31/2019 2:40 PM CDT Sexual Orientation Straight 08/31/2019 2: 40 PM CDT documented as of this encounter Plan of Treatment Upcoming Encounters Date Type Department Care Team (Latest Contact Info) Description 04/03/2024 11:30 AM CIVIL STRUCTURAL DESIGNER Hospital Encounter Post Anesthesia Care Unit in [place], [place] [address] [place] [phone] Kemar Velásquez M.B.B.S. 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 [address] [place] [phone] IR ENDOVASCULAR ANGIOPLASTY STENT LOWER EXTREMITY, right femoral access 04/04/2024 7:40 AM CIVIL STRUCTURAL DESIGNER Hospital Encounter Post Anesthesia Care Unit in [place], [place] [address] [place] [phone] Kemar Velásquez M.B.B.S. 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
--- OUTSIDE RECORDS SUMMARY | 2024-03-20 10:06 | XMS_ITS | Encounter Summary ---
Author Organization [facility] Address [address] [place] [address] Care Team Providers Care Wire Fence Erector Name Role Phone Elsewhere, Pcp Primary Care Provider Unavailabl e Reason for Visit * Reason Comments Med Refill Encounter Details Date Type Department Care Team (Late st Contact Info) Description 02/11/2024 Refill Division of Nephrology and Hypertension in [place], [place] [address] [place] [phone] Haseeb Menon Jr., D.O. [address] [place] [phone] Med Refill Social History Tobacco Use Types [...] How often do you attend quaker or zoroastrianism serv ices? Never 03/24/2021 Do [...] Score 0 10/20/2018 [facility] - Occupational Stress Questionnaire Answer [...] Sex Assigned at Male 03/24/2021 8:13 PM SAP BASIS CONSULTANT Legal Sex Male 12:04 AM SAP BASIS CONSULTANT Gender Identity Male 08/31/2019 2:40 PM CDT Sexual Orientation Straight 08/31/2019 2: 40 PM CDT documented as of this encounter Miscellaneous Notes * Telephone Encounter - Brandon Kaur R.N. - 02/20/2024 8:51 AM CDT discontinued documented in this encounter Plan of Treatment Upcoming Encounters Date Type Department Care Team (Latest Contact Info) Description 04/03/2024 11:30 AM SAP BASIS CONSULTANT Hospital Encounter Post Anesthesia Care Unit in [place], [place] [address] [place] [phone] Kemar Vleásquez M.B.B.S. 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 [address] [place] [phone] IR ENDOVASCULAR ANGIOPLASTY STENT LOWER EXTREMITY, right femoral access 04/04/2024 7:40 AM SAP BASIS CONSULTANT Hospital Encounter Post Anesthesia Care Unit in [place], [place] [address] [place] [phone] Kemar Velásquez M.B.B.S. 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
--- OUTSIDE RECORDS SUMMARY | 2024-03-20 10:06 | XMS_ITS | Encounter Summary ---
Author Organization [facility] Address [address] [place] [address] Care Team Providers Care Member Of Parliament Name Role Phone Elsewhere, Pcp Primary Care Provider Unavailabl e Encounter Details Date Type Department Care Team (Late st Contact Info) Description 08/19/2016 Historical Ophthalmology [facility] Chalo Holland Jr., M.D. [address] [place] [phone] Social History Tobacco Use Types Packs/Day Years Used Date Smoking Tobacco: Every Day Sex and Gender Information Value Date Recorded Sex Assigned at Male 03/24/2021 8:13 PM SUMMER CAMP COUNSELOR Legal Sex Male 12:04 AM SUMMER CAMP COUNSELOR Gender Identity Male 08/31/2019 2:40 PM [...] IOL OU CDM Reports - EYEGEN Id: [id number] Status: Fnl documented in this encounter Plan of Treatment Upcoming Encounters Date Type Department Care Team (Latest Contact Info) Description 04/03/2024 11:30 AM SUMMER CAMP COUNSELOR Hospital Encounter Post Anesthesia Care Unit in [address] [phone] Kemar Velásquez M.B.B.S. 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 [address] [place] [phone] IR ENDOVASCULAR ANGIOPLASTY STENT LOWER EXTREMITY, right femoral access 04/04/2024 7:40 AM SUMMER CAMP COUNSELOR Hospital Encounter Post Anesthesia Care Unit in [address] [phone] Kemar Velásquez M.B.B.S. 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
--- OUTSIDE RECORDS SUMMARY | 2024-03-20 10:06 | XMS_ITS | Encounter Summary ---
Author Organization [facility] Address [address] [place] [address] Care Team Providers Care Dry Can Tender Name Role Phone Elsewhere, Pcp Primary [...] Runoff Bilat with IV Contrast Jayjay Pak, PFeiAFei-CFei [address] [place] [address] Phone: tel: fax: [facility] Referral ID Status Reason Start Date Expiration Date Visits Re quested Visits Authorized [id number] Closed 03/07/2024 03/07/2025 1 1 * MRI/CAT/PET Scan (Routine) - Closed Specialty Diagnoses / Procedures Referred By Contac t Referred To Contact Radiology Diagnoses Follow Up Examination Status Post Surgery Peripheral Arterial Disease (HCC) Wound Foot Open Subsequent Left Wound Foot Open Subsequent Right Procedures MR Foot Right without and with IV Contrast Jayjay Pak P.AFei-Jennifer [address] [place] [address] Phone: tel: fax: [facility] Referral ID Status Reason Start Date Expiration Date Visits Re quested Visits Authorized [id number] Closed 03/07/2024 03/07/2025 1 1 * Outpatient (Routine) - Closed Specialty Diagnoses / Procedures Referred By Robi hong Referred To Contact Diagnoses Peripheral Arterial Disease (HCC) Wound Foot Open Subsequent Left Wound Foot Open Subsequent Right Procedures DX Foot Bilateral 3+ Views Jayjay Pak P.A.-C. [address] [place] [phone] Phone: tel: fax: [facility] Referral ID Status Reason Start Date Expiration Date Visits Re quested Visits Authorized [id number] Closed 03/05/2024 03/05/2025 1 1 Reason for Visit * Outpatient (Routine) - Closed Specialty Diagnoses / Procedures Referred By Robi hong Referred To Contact Vascular Medicine Jayjay Pak P.A.-C. [address] [place] [address] Phone: tel: fax: [facility] Referral ID Status Reason Start Date Expiration Date Visits Re quested Visits Authorized [id number] Closed 01/05/2024 07/06/2025 1 1 Encounter Details Date Type Department Care Team (Late st Contact Info) Description 03/05/2024 3:00 PM CDT Office Visit Department of Vascular Medicine in [place], [place] [address] [place] [phone] Jayjay Pak P.A.-C. [address] [place] [phone] Follow Up Examination Status Post Surgery (Primary [...] How often do you attend lutheran or judaism serv ices? Never 03/24/2021 Do [...] situation today? I have a [facility] place to live 10/26/2022 Education Answer Date Recorded What is the highest level of school you have completed or the highest degree you have received? Some college, no degree 03/24/2021 Sex and Gender Information Value Date Recorded Sex Assigned at Male 03/24/2021 8:13 PM FILM LIBRARY CLERK Legal Sex Male 12:04 AM FILM LIBRARY CLERK Gender Identity Male 08/31/2019 2:40 PM CDT Sexual Orientation Straight 08/31/2019 2: 40 PM CDT documented as of this encounter Last Filed Vital Signs Vital Sign Reading Time Taken Comments Blood Pressure 96/52 03/05/2024 3:04 PM CDT Pulse 89 03/05/2024 3:04 PM CDT Temperature - - Respiratory Rate - - Oxygen Saturation - - Inhaled Oxygen Concentration - - Weight 88.4 kg (194 lb 14.2 oz) 03/05/2024 2:59 PM CDT Height 175.4 cm (5' 9.06) 03/05/2024 2:59 PM CD T Body Mass Index 28.73 03/05/2024 2:59 PM CDT documented in this encounter Progress Notes * Jayjay Pak P.A.-C. - 03/05/2024 3:00 PM CDT SUBJECTIVE CHIEF COMPLAINT / REASON FOR VISIT Peripheral arterial disease status post interventions HISTORY OF PRESENT ILLNESS Follow Up Examination Status Post Surgery (Primary) Peripheral Arterial Disease (HCC) Wound Foot Open Subsequent Left Wound Foot Open Subsequent Right Mr. Walton is a 74 y.o. male that I am seeing today for follow-up of his stenting. His Siria is with today. It was nice to see them again. Unfortunately, since I saw the patient last he has progressed to daily dialysis. He reports that hethinks this is going well overall. Patient continues to have balance issues and falls frequently. Because of this and claudication, he is not very active. He says he can walk maybe one 100 to 200 ft before having to stop because of calf and thigh pain, usually more on the left than right. He has to stop for 10 minutes and then can go again but a shorter distance. All these things are worse compared to last year. The patient can have intermittent rest pain as well. The patient continues to have issues with wound healing, having a wound in the right plantar aspect of the foot near the first toeand a blister that is slowly healing on the left first toe. I asked if osteomyelitis was a concern and they made it sound like this was diagnosed and treated based on local pathology/cytology. 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 The patient has had multiple interventions for critical limb ischemia which includes catheterization of the left SFA third order vessel with left lower extremity angiogram on March 31, 2017, left common femoral endarterectomy and superficial femoral artery stenting on April 04, 2017, left lower extremity angiogram with angioplasty May 27, 2017, right lower extremity angiogram with rightsuperficial femoral artery stenting August 31, 2017, left pelvic angiogram and left lower extremity angiogram with angioplasty April 18, 2018, and abdominal aortogram and pelvic angiogram a left external iliac artery stenting May 11, 2019. The patient has end-stage renal disease and is doing daily peritoneal dialysis. He has anemia that seems to be multifactorial and has treatment for this periodically. Patient's history includes TIA in 2009 without recurrence, asymptomatic CAD with stress echo showing myocardia ischemia, diabetes, bilateral carotid bruits without evidence of stenosis in 2017, CKD on dialysis, hypertension, hyperlipidemia. Patient denies chest pain or significant dyspnea. The patient denies TIA or CVA like symptoms. Patient denies abdominal pain or postprandial pain. The following portions of the patient's history [...] the history ofpresent illness. OBJECTIVE VITALS BP (!) 96/52 (BP Location: Left arm, Patient Position: Sitting, Cuff Size: Regular) Pulse 89 Ht175.4 cm Wt 88.4 kg BMI 28.73 kg/m?? Body mass index is 28.73 kg/m??. PHYSICAL EXAMINATION General: In no acute distress Vessels: (Right/Left): Radial 3+/3+. Posterior tibial absent/absent. Extremities: Trace edema. Psychiatric: Pleasant. DIAGNOSTIC REVIEW All labs and diagnostic studies were reviewed. ECG: Sinus rhythm Right bundle branch block Nonspecific ST and T wave abnormality When compared with ECG of 03-Mar-2023 07:52, QT has shortened Vasc lab: Right: Severe, multilevel arterial occlusive disease starting at the superficial femoral level. TcPO2 values are normal at the calf and severely reduced at the foot. Left: Severe, multilevel iliofemoral arterial occlusive disease. TcPO2 values are moderately reduced above the knee and severely reduced at the calf, proximal foot, and distal foot. Compared to the prior study (03/03/2023), arterial occlusive disease is severe, with worsening TcPO2 values bilaterally. (resting ABIs on the right dropped from roughly 0.8 to 0.4 the left from 0.7 down to 0.3. Oxygenlevels were significantly reduced all positions at the right proximal and distal foot at the left below-knee, proximal foot and distal. U/S: 1. Patent bilateral iliac artery stents with worsening stenoses on the left. 2. The previously seen barrow right external iliac artery stenosis is not definitely identified today. U/S: RIGHT: Patent superficial femoral artery stents. New stenoses within the stents and in the barrow distal SFA below the stents. LEFT: Unchanged stenosis of the barrow proximal superficial femoral artery. Patent mid SFA stents with new stenosis at the proximal end point. Worsening stenosis in the barrow distal SFA. Similar stenoses in the popliteal artery and tibioperoneal trunk. Severely dampened Doppler waveforms at the ankle. ASSESSMENT / PLAN #1 Follow Up Examination Status Post Surgery #2 Peripheral Arterial Disease (HCC) #3 Wound Foot Open Subsequent Left #4 Wound Foot Open Subsequent Right The patient returns for review of his previous interventions and worsening peripheral arterial disease. Unfortunately vascular lab shows major changes in his TcPO2 levels and are in the single digits, and his ultrasound shows significant changes within the stents and the SFAs. The patient continuesto have slow healing wounds so we will get x-rays to review for osteomyelitis, and I will discuss with vascular surgery if they need a CTA. If the CTA is necessary, I will discuss with the patient's airset caster since he is on dialysis and coordinate accordingly. ADDENDUM: 03/08/2024: Outside x-rays have concern over osteomyelitis on the right. I discussed the case with vascular surgery and they would like a CTA with runoff and an MRI with gadolinium. I discussed these two tests with the patient's airset caster who felt that this would be safe as the patient does daily dialysis and the risk with gadolinium in these patients has changed since they have changed the type of gadolinium. The risk is much lower now. The patient is scheduled to see wound care and vascular surgery next week. All questions answered. Total time spent with patient care: 45 minutes. Jayjay Pak P.A.-C. documented in this encounter Plan of Treatment Upcoming Encounters Date Type Department Care Team (Latest Contact Info) Description 04/03/2024 11:30 AM FILM LIBRARY CLERK Hospital Encounter Post Anesthesia Care Unit in [place], [address] [phone] Kemar Velásquez M.B.B.S. 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 [address] [place] [phone] IR ENDOVASCULAR ANGIOPLASTY STENT LOWER EXTREMITY, right femoral access 04/04/2024 7:40 AM FILM LIBRARY CLERK Hospital Encounter Post Anesthesia Care Unit in [address] [phone] Kemar Velásquez M.B.B.S. 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 IMG CT PROCEDURES Final Result * DX Foot Bilateral 3+ Views (03/07/2024 [...] Post Surgery- Primary Peripheral Arterial Disease (HCC) Wound Foot Open Subsequent Left Wound Foot Open Subsequent Right Peripheral Arterial Disease (HCC) Wound Foot Open Subsequent Left Wound Foot Open Subsequent Right Follow Up Examination Status Post Surgery Peripheral Arterial Disease (HCC) Wound Foot Open Subsequent Left Wound Foot Open Subsequent Right Follow Up Examination Status Post Surgery Peripheral [...] as of this encounter Care Teams Dry Can Tender Relationship Specialty Start Date End Date Elsewhere, Pcp PCP - General Family Medicine 01/29/20 documented as of this encounter
--- OUTSIDE RECORDS SUMMARY | 2024-03-20 10:06 | XMS_ITS | Encounter Summary ---
Author Organization [facility] Address [address] [place] [address] Care Team Providers Care Ferry Hand Name Role Phone Elsewhere, Pcp Primary Care Provider Unavailabl e Reason for Visit * Reason Comments Med Refill Encounter Details Date Type Department Care Team (Late st Contact Info) Description 02/23/2024 Refill Division of Nephrology and Hypertension in [place], [place] [address] [place] [phone] Onesimo Rodriguez M.D. Med Refill Social History [...] How often do you attend nondenominational or temple serv ices? Never 03/24/2021 Do [...] at Male 03/24/2021 8:13 PM PROFESSOR OF MUSIC Legal Sex Male 12:04 AM PROFESSOR OF MUSIC Gender Identity Male 08/31/2019 2:40 PM CDT [...] (Latest Contact Info) Description 04/03/2024 11:30 AM PROFESSOR OF MUSIC Hospital Encounter Post Anesthesia Care Unit in [place], [place] [address] [place] [phone] Kemar Velásquez M.B.B.S. 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 [address] [place] [phone] IR ENDOVASCULAR ANGIOPLASTY STENT LOWER EXTREMITY, right femoral access 04/04/2024 7:40 AM PROFESSOR OF MUSIC Hospital Encounter Post Anesthesia Care Unit in [place], [place] [address] [place] [phone] Kemar Velásquez M.B.B.S. 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
--- OUTSIDE RECORDS SUMMARY | 2024-03-20 10:06 | XMS_ITS | Encounter Summary ---
Author Organization [facility] Address [address] [place] [address] Care Team Providers Care Roll Trucker Name Role Phone Elsewhere, Pcp Primary Care Provider Unavailabl e Reason for Referral * Outpatient (Routine) - Closed Specialty Diagnoses / Procedures Referred By Branac t Referred To Contact Diagnoses Follow Up Examination Status Post Surgery Peripheral Arterial Disease (HCC) Procedures US Aorta Iliac Arteries Bilateral with Doppler Jayjay Pak P.A.-C. 200 [place] [address] Phone: tel: fax: [facility] Referral ID Status Reason Start Date Expiration Date Visits Re quested Visits Authorized [id number] Closed 01/05/2024 01/04/2025 1 1 * Outpatient (Routine) - Closed Specialty Diagnoses / Procedures Referred By Contac t Referred To Contact Diagnoses Follow Up Examination Status Post Surgery Peripheral Arterial Disease (HCC) Procedures ECG 12 Lead Jayjay Pak P.A.-C. [address] [place] [address] Phone: tel: fax: [facility] Referral ID Status Reason Start Date Expiration Date Visits Re quested Visits Authorized [id number] Closed 01/05/2024 01/04/2025 1 1 * Outpatient (Routine) - Closed Specialty Diagnoses / Procedures Referred By Robi hong Referred To Contact Vascular Medicine Jayjay Pak P.A.-C. [address] [place] [phone] Phone: tel: fax: [facility] Referral ID Status Reason Start Date Expiration Date Visits Re quested Visits Authorized [id number] Closed 01/05/2024 07/06/2025 1 1 Encounter Details Date Type Department Care Team (Late st Contact Info) Description 01/05/2024 Orders Only Department of Vascular Medicine in [place], [place] [address] [place] [phone] Jayjay Pak P.A.-C. [address] [place] [phone] Follow Up Examination Status Post Surgery (Primary [...] How often do you attend yarsanism or yarsani serv ices? Never 03/24/2021 Do [...] Answer Date Recorded PHQ-2 Score 0 10/20/2018 [facility] - [...] your living situation today? I have a [facility] place to live 10/26/2022 Education Answer Date Recorded What is the highest level of school you have completed or the highest degree you have received? Some college, no degree 03/24/2021 Sex and Gender Information Value Date Recorded Sex Assigned at Male 03/24/2021 8:13 PM LIVESTOCK TRADER Legal Sex Male 12:04 AM LIVESTOCK TRADER Gender Identity Male 08/31/2019 2:40 PM CDT Sexual Orientation Straight 08/31/2019 2: 40 PM CDT documented as of this encounter Plan of Treatment Upcoming Encounters Date Type Department Care Team (Latest Contact Info) Description 04/03/2024 11:30 AM LIVESTOCK TRADER Hospital Encounter Post Anesthesia Care Unit in [place], [place] [address] [place] [phone] Kemar Velásquez M.B.B.S. 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 [address] [place] [phone] IR ENDOVASCULAR ANGIOPLASTY STENT LOWER EXTREMITY, right femoral access 04/04/2024 7:40 AM LIVESTOCK TRADER Hospital Encounter Post Anesthesia Care Unit in [place], [place] [address] [place] [phone] Kemar Velásquez M.B.B.S. 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 Patent bilateral iliac artery stents with worsening stenoses on the left. 2. The previously seen yocha dehe right external iliac artery stenosis is not [...] visualized. Diffusely elevated Doppler velocities within the yocha dehe external iliac artery without obvious focal stenosis. [...] definitely visualized. Diffusely elevatedDoppler velocities within the yocha dehe external iliac artery without obviousfocal stenosis. LEFT: [...] stenoses on theleft. 2. The previously seen yocha dehe right external iliac artery stenosis is notdefinitely identified today. us Jayjay Pak P.A.-C. IMG US PROCEDURES Final Result * ECG 12 Lead (03/05/2024 11:03 AM CDT) Ventricular Rate ECG/Min 90 BPM MUSE MS Interval 152 ms MUSE QRSD Interval 122 ms MUSE QT Interval 404 ms MUSE QTC Interval 494 ms MUSE P [place] 73 degrees MUSE R [place] -18 degrees MUSE T Wave [place] 33 degrees MUSE 03/05/2024 11:0 3 AM [...] ECG ORDERABLES Final Re sult MUSE NA documented in this encounter Visit Diagnoses Diagnosis Follow Up Examination Status Post Surgery- Primary Peripheral Arterial Disease (HCC) Follow Up Examination Status Post Surgery Peripheral [...] as of this encounter Care Teams Roll Trucker Relationship Specialty Start Date End Date Elsewhere, Pcp PCP - General Family Medicine 01/29/20 documented as of this encounter
--- OUTSIDE RECORDS SUMMARY | 2024-03-20 10:06 | XMS_ITS | Encounter Summary ---
Author Organization [facility] Address [address] [place] [address] Care Team Providers Care Manager Imaging Name Role Phone Elsewhere, Pcp Primary Care Provider Unavailabl e Reason for Visit * Reason Comments Med Refill Encounter Details Date Type Department Care Team (Late st Contact Info) Description 01/14/2024 Refill Division of Nephrology and Hypertension in [place], [place] [address] [place] [address] Onesimo Rodriguez M.D. Med Refill Social History [...] How often do you attend tenriism or alevism serv ices? Never 03/24/2021 Do [...] your living situation today? I have a [facility] place to live 10/26/2022 Education Answer Date Recorded What is the highest level of school you have completed or the highest degree you have received? Some college, no degree 03/24/2021 Sex and Gender Information Value Date Recorded Sex Assigned at Male 03/24/2021 8:13 PM GRAIN MERCHANDISER Legal Sex Male 12:04 AM GRAIN MERCHANDISER Gender Identity Male 08/31/2019 2:40 PM CDT Sexual Orientation Straight 08/31/2019 2: 40 PM CDT documented as of this encounter Miscellaneous Notes * Telephone Encounter - Haseeb Menon Jr., D.O. - 01/19/2024 12:51 PM CDT He is on PD via [employer], I care for him and he does not take these any longer. RCA documented in this encounter Plan of Treatment Upcoming Encounters Date Type Department Care Team (Latest Contact Info) Description 04/03/2024 11:30 AM GRAIN MERCHANDISER Hospital Encounter Post Anesthesia Care Unit in [place], [place] [address] [place] [address] Kemar Velásquez M.B.B.S. 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 [address] [place] [phone] IR ENDOVASCULAR ANGIOPLASTY STENT LOWER EXTREMITY, right femoral access 04/04/2024 7:40 AM GRAIN MERCHANDISER Hospital Encounter Post Anesthesia Care Unit in [place], [place] [address] [place] [phone] Kemar Velásquez M.B.B.S. 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
== END 2024-03-20 10:01 | disposition home or self-care (01) ==
LOC: WOUND 10:00
PROVIDERS: PCP Family Medicine; Visit Provider Nurse Practitioner Family
DX: E11.621 Type 2 diabetes mellitus with foot ulcer (principal); L97.518 Non-pressure chronic ulcer of other part of right foot with other specified severity; E11.622 Type 2 diabetes mellitus with other skin ulcer; N18.5 Chronic kidney disease, stage 5; Z96.41 Presence of insulin pump (external) (internal); Z99.2 Dependence on renal dialysis
CPT/HCPCS: 15275; Q4201

== ENCOUNTER 2024-03-27 09:56 | Outpatient (CLI) | payer MEDICARE, BC, SELFPAY ==
--- OUTSIDE RECORDS SUMMARY | 2024-03-27 09:59 | XMS_ITS | Clinical Summary ---
Author Organization [employer] [facility] Address [place], [place] [address] Care Team Providers Care Supervisor Esters And Emulsifiers Name Role Phone Casa Lucia MD Unavailable Unavailable Rudy Riddle MD Unavailable [phone] Rudy Riddle MD Primary Care Provider + Allergies Active Allergy Reactions Criticality Noted Date Comments Gabapentin Other - Describe In Comment Field Medium 08/04/2020 Dizzy, memory issue Dizzy, memory issue Morphine Itching 02/04/2010 After 3 days of use Pregabalin Anaphylaxis,Itching High 02/16/2017 swetesfaye jane Toxmgvq-Kgs-Txj Reductase Inhibitors Myalgia 02/13/2014 Medications Medication Sig [...] Comments Blood Pressure 162/87 07/21/2022 9:21 PM FILENET DEVELOPER Pulse 100 07/21/2022 9:21 PM FILENET DEVELOPER Temperature 37.1 ??C (98.8 ??F) 07/21/2022 8:51 PM CS T Respiratory Rate 18 07/21/2022 8:51 PM FILENET DEVELOPER Oxygen Saturation 96% 07/21/2022 9:21 PM FILENET DEVELOPER Inhaled Oxygen Concentration - - Weight 83.9 kg (185 lb) 07/21/2022 5:35 PM FILENET DEVELOPER Height 175.3 cm (5' 9) 07/21/2022 5:35 PM FILENET DEVELOPER Body Mass Index 27.32 07/21/2022 5:35 PM FILENET DEVELOPER Plan of Treatment Health Maintenance Due Date [...] age 77 05/12/203205/12, 02/04/2006 (Completed outside of [facility]) Tdap Completed 08/16/2016 Pneumococcal series for age 65+ Completed 04/24/2018, 04/11/2017, 02/14/2012, Additional history exists Goals Goal Patient Goal Type Associated Problems Recent Progress Patient-Stated? Author BLOOD PRESSURE - MAINTAINS BP less than 140/90 Blood Pressure Rudy Orozco MD Procedures Procedure Name Priority Date/Time Associated Diagnosis Comments COLONOSCOPY 05/12/2022 8:51 AM FILENET DEVELOPER LIPID PANEL W REFLEX MEASURED LDL Routine 02/16/2016 8:59 AM CDT Hyperlipidemia, unspecified hyperlipidemia type from Last 3 Months or Most Recently Relevant to Health Maintenance Results * COLONOSCOPY (05/12/2022 8:51 AM FILENET DEVELOPER) 05/12/2022 8:51 AM FILENET DEVELOPER Narrative Transcriptions Lukas West MD - 05/12/2022 9:03 AM [facility] Patient Name: Onesimo Walton Procedure Date: 05/12/2022 Gender: Male Date of : 1950 Admit Type: Inpatient Procedure: Colonoscopy Proceduralist: Lukas West MD [facility] Indications/Pre-Op Diagnosis: Anemia. Bacteremia Medications: Monitored Anesthesia Care Procedure Description: The patient had risks, benefits and alternatives explained to andgave informed consent. The patient had a stable cardiopulmonary status and judged an adequate candidate for conscious sedation. The [facility] [id number]-[id number] endoscope was passed through the anus and [...] mg/dL 02/16/2016 11:02 AM CDT [facility] TRIGLYCERIDES 232(H) <150 mg/dL 02/16/2016 11:02 AM CDT [facility] HDL CHOLESTEROL 31(L) >40 mg/dL 02/16/2016 11:02 AM CDT [facility] NON-HDL CHOLESTEROL 147(H) <145 mg/dl 02/16/2016 11:02 AM CDT [facility] CHOL/HDL RATIO 5.74(H) <4.50 02/16/2016 11:02 AM CDT [facility] LDL CHOLESTEROL 101 <=130 mg/dL 02/16/2016 11:02 AM CDT [facility] PATIENT STATUS FASTING 02/16/2016 11:02 AM CDT [facility] Blood BLOOD SPECIMEN / Unknown Venipuncture / Unknown 02/16/2016 8:59 AM CDT 02/16/2016 8:59 AM CDT Rudy Riddle MD CHEMISTRY [facility] [address] [place], [place] [id number] [place] [address] [address] [place] [address], [place] [phone] from Last 3 Months or Most Recently [...] Preferences, Provider to review later Care Teams Supervisor [employer] And Emulsifiers Relationship Specialty Start Date End Date Rudy Riddle MD [address] [place] [address] PCP - General Family Practice 05/25/22 Casa Lucia MD [address] [place] [address] Ophthalmology Ophthalmology Surgery 12/22/11 Rudy Riddle MD [address] [facility] [place] [address] Family Practice 05/07/22
--- OUTSIDE RECORDS SUMMARY | 2024-03-27 10:00 | XMS_ITS | Clinical Summary ---
Author Organization [facility] Address [address] [place] [address] Care Team Providers Care Furnace Clerk Name Role Phone Elsewhere, Pcp Primary Care Provider Unavailabl e Source Comments Patient records contain information from all sites at [facility]. For routine questions regarding patient records, call [phone] during business hours, M-F 8:00 AM - 5:00 PM Central Time. Record requests for emergency care only can be directed to [phone] at any time.[facility] Allergies Active Allergy Reactions Criticality Noted Date Comments Gabapentin Other (see comments) Medium 08/04/2020 Dizzy, memory issue Morphine Itching,Rash Medium 02/14/2012 itchy Pregabalin Anaphylaxis High 02/16/2017 swell Etphuth-Ubv-Czg Reductase Inhibitors Myalgia Low 02/13/2014 Medications DULoxetine [...] ONE CAPSULE BY MOUTH EVERY DAY CORRECTION 01/15/20 22 Active allopurinoL (ZYLOPRIM) 100 mg [...] UNABLE TO FIND Insulin pump Ac tive furosemide (LASIX) 80 mg tablet Take 2 [...] 300 tablet 3 03/14/20 23 024 Discontinued sennosides-doc usate sodium (SENOKOT-S) 8.6-50 mg per tablet Take 1 tablet by mouth 2 (two) times a day. 180 tablet 3 03/21/20 23 024 allopurinol 100 mg oral capsule Take 100 [...] 04/21/2018 Restless Leg Syndrome 01/12/2018 Atherosclerosis Of [place] Ar teries Of Extremities With Intermittent Claudication Right Leg 08/08/2017 Hyperlipidemia 07/22/2017 Ulcer Leg Left 04/19/2017 Ulcer Toe Left 04/19/2017 Atherosclerosis Of [place] Ar teries Of Left Leg With Ulceration Of Unspecified Site 04/19/2017 Peripheral Arterial Disease 02/16/2017 Hypertension NOS 02/16/2017 Hypertensive Chronic Kidney Disease With Stage 1 Through Stage 4 Chronic Kidney Disease, Or Unspecified Chronic Kidney Disease 09/23/2016 Overview (10/05/2016): Hypertension (HTN) And CKD Stage 1-4 Intermediate Use Of Insulin Active 09/23/2016 Overview (10/05/2016): Shake Loader Use Of Insulin Active Depression Major Recurrent Moderate 06/22/2016 Overview (10/05/2016): Depression Major Recurrent Moderate Diabetes Mellitus Type 2 Wit h Other Circulatory Complication 06/22/2016 Overview (10/05/2016): DM2 Peripheral Neuropathy Uncontrolled Encounters Date Type Department Care Team Description 03/20/2024 Clinical Communication Division of Vascular and Endovascular Surgery in [place], [place] [address] [place] [phone] Kemar Velásquez M.B.B.S. 03/13/2024 Documentation Division of Nephrology and Hypertension in [place], [place] [address] [place] [phone] Haseeb Menon Jr., D.O. 03/13/2024 Orders Only Division of Nephrology and Hypertension in [place], [place] [address] [place] [address] Haseeb Menon Jr., D.OFei 03/12/2024 10:40 AM CDT Comprehensive Visit Division of Vascular and Endovascular Surgery in [place], [place] [address] [place] [address] Kemar Velásquez M.B.B.S. 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 Wound Foot [...] PM CDT Hospital Encounter Department of Radiology, [place], [place] [address] [place] [address] Jayjay Pak P.A.-CFei Follow Up Examination Status Post Surgery; Peripheral Arterial Disease (HCC); Wound Foot Open Subsequent Left; Wound Foot Open Subsequent Right Discharge Disposition: Home or Self Care 03/09/2024 2:02 PM CDT - 03/09/2024 6:24 PM CDT Hospital Encounter Department of Radiology, [facility] in [place], [place] [address] [place] [address] Jayjay Pak P.A.-CFei Follow Up Examination Status Post Surgery; Peripheral Arterial Disease (HCC); Wound Foot Open Subsequent Left; Wound Foot Open Subsequent Right Discharge Disposition: Home or Self Care 03/07/2024 10:12 AM CDT - 03/07/2024 11:59 PM CDT Hospital Encounter Department of Radiology in [place], [place] [address] [place] [address] Jayjay Pak P.A.-C. Peripheral Arterial Disease (HCC); Wound Foot Open Subsequent Left; Wound Foot Open Subsequent Right Discharge Disposition: Home or Self Care 03/07/2024 Orders Only Department of Vascular Medicine in [place], [place] [address] [place] [phone] Jayjay Pak P.A.-C. 03/06/2024 Orders Only Department of Vascular Medicine in [place], [place] [address] [place] [phone] Jayjay Pak P.A.-C. Peripheral Arterial Disease (HCC) (Primary Dx); Wound Foot Open Subsequent Left; Wound Foot Open Subsequent Right 03/05/2024 3:00 PM CDT Office Visit Department of Vascular Medicine in [place], [place] [address] [place] [phone] Jayjay Pak P.A.-Jennifer Follow Up Examination Status Post Surgery (Primary Dx); Peripheral Arterial Disease (HCC); Wound Foot Open Subsequent Left; Wound Foot Open Subsequent Right 03/05/2024 11:19 AM CDT - 03/05/2024 11:59 PM CDT Hospital Encounter Department of Radiology, [place], [place] [address] [place] [phone] Jayjay Pak P.A.-CFei Follow Up Examination Status Post Surgery; Peripheral Arterial Disease (HCC) Discharge Disposition: Home or Self Care 03/05/2024 11:00 AM CDT - 03/05/2024 11:18 AM CDT Hospital Encounter Department of Radiology, [facility] in [place], [place] [address] [place] [phone] Jayjay Pak P.A.-Jennifer Follow Up Examination Status Post Surgery; Peripheral Arterial Disease (HCC) Discharge Disposition: Home or Self Care 03/05/2024 7:30 AM CDT - 03/05/2024 10:59 AM CDT Hospital Encounter Department of Vascular Medicine in [place], [place] [address] [place] [phone] Jayjay Pak P.A.-C. Follow Up Examination Status Post Surgery; Peripheral Arterial Disease (HCC) Discharge Disposition: Home or Self Care 02/23/2024 Refill Division of Nephrology and Hypertension in [place], [place] [address] [place] [phone] Onesimo Rodriguez M.D. Med Refill 02/11/2024 Refill Division of Nephrology and Hypertension in [place], [place] [address] [place] [phone] Haseeb Menon Jr., D.O. Med Refill 01/14/2024 Refill Division of Nephrology and Hypertension in [place], [place] [address] [place] [phone] Onesimo Rodriguez M.D. Med Refill 01/05/2024 Orders Only Department of Vascular Medicine in [place], [place] [address] [place] [phone] Jayjay Pak P.A.-C. Follow Up Examination Status [...] drink = 0.6 oz pur e alcohol) [facility] Utilities Answer Date Recorded In the past 12 months has e [employer], gas, oil, or water [employer] threatened to shut off services in your [...] How often do you attend shinto or evangelical serv ices? Never 03/24/2021 Do [...] PHQ-2 Score 0 10/20/2018 [facility] - Occupational Stress Questionnaire Answer Date [...] [facility] live 03/11/2024 Education Answer Date Recorded What is the highest level of school you have completed or the highest degree you have received? Some college, no degree 03/24/2021 Sex and Gender Information Value Date Recorded Sex Assigned at Male 03/24/2021 8:13 PM MECHANICAL INTERN Legal Sex Male 12:04 AM MECHANICAL INTERN Gender Identity Male 08/31/2019 2:40 PM [...] (Latest Contact Info) Description 04/03/2024 11:30 AM MECHANICAL INTERN Hospital Encounter Post Anesthesia Care Unit in [place], [place] [address] [place] [address] Kemar Velásquez M.B.B.S. 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 [address] [place] [phone] IR ENDOVASCULAR ANGIOPLASTY STENT LOWER EXTREMITY, right femoral access 04/04/2024 7:40 AM MECHANICAL INTERN Hospital Encounter Post Anesthesia Care Unit in [place], [place] [address] [place] [phone] Kemar Velásquez M.B.B.S. 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 Body Location - Other. Vascular. Device Status Text - [id number]. Ocular Lens-10/29/2007 Implanted:10/28 by Nato Dougherty, JULIÁN, C.N.P., R.N. (Quantity not on file) Ocular Lens Bilateral: Eye Description:Cataract extract ion and insertion of intraocular lens 06/22/2016 09:27 - [employer] DOUGHERTY ASSEMBLER WET WASH C D AREA SUPERVISOR bilateral Conversions - Default Historical Implant Device [...] 6mm X 29mm X 135cm - Flores [id number] Implanted:Qty: 1 on 03/04/2017 Vascular Graft [place] Description:Device Manufactu rer - [employer]. Device Status Text - [id number]. Stent Vbx [id number] - Flores [id number] Implanted:Qty: 1 on 03/04/2017 Vascular Graft Other/Legacy - See Implant Description Mid[place] Description:Device Manufactu rer - [employer] Body Location - Other. n/a. Device Status Text - [id number]. Stent Vbx [id number] - Flores [id number] Implanted:Qty: 1 on 03/04/2017 Vascular Graft Other/Legacy - See Implant Description Midland Description:Device Manufactu rer - [employer] Body Location - Other. n/a. Device Status Text - [id number]. Stent Zilver Ptx 6mm X 40mm - Flores [id number] Implanted:Qty: 1 on 04/04/2017 Vascular Stent Other/Legacy - See Implant Description [employer] [facility] Description:Device Manufactu rer - [employer]. Body Location - Other. Left. Device Status Text - [id number]. Stent Zilver Ptx 6mm X 60mm - Flores [id number] Implanted:Qty: 1 on 04/04/2017 Vascular Stent Other/Legacy - See Implant Description [employer] Description:Device Manufactu rer - [employer]. Body Location - Other. Left. Device Status Text - [id number]. Stent Zilver Ptx 6mm X 80mm - Flores [id number] Implanted:Qty: 1 on 08/31/2017 Vascular Stent Right: Other/Legacy - See Implant Description [employer] / [id number] / Description:Device Manufactu rer - [employer]. Body Location - Right. Device Status Text - [id number]. Stent Zilver Ptx 6mm X 40mm - Flores [id number] Implanted:Qty: 1 on 08/31/2017 Vascular Stent Right: Other/Legacy - See Implant Description [employer] / [id number] / Description:Device Manufactu rer - [employer]. Body Location - Right. Device Status Text - [id number]. Stnt Innova Otw [id number] - [id number] Implanted:Qty: 1 on 04/18/2018 by Kemar Velásquez M.B.B.S. at [facility] Vascular Stent [employer] 05/23/2020 [id number] / / [id number] Stnt Innova Otw [id number] - [id number] Implanted:Qty: 1 on 05/11/2019 by Kemar Velásquez M.B.B.S. at [facility] Vascular Stent Left: Leg [employer] 09/05/2020 [id number] / / [id number] Procedures Procedure Name Priority Date/Time Associated Diagnosis [...] Renal Disease Acidosis Metabolic Hyperchloremic Atherosclerosis Of [place] Arteries Of Extremities With Intermittent Claudication Right [...] mural thrombus causing moderate stenosis (series 5, [id number]). Moderate to severe stenosis distal to the [...] in the mid left SFA (series 5, [id number]) over short segment the level of the [...] POCT ORDERABLES - DEVICE Fi nal Result [facility] PERFORMING LABS [address] [place] [address], [facility] PCDT [facility] POC [address] [place] [address] * DX Foot Bilateral 3+ Views (03/07/2024 [...] FOOT BILATERAL 3+ VIEWS Procedure Note Cristel Hionjosa D.O. - 03/07/2024 EXAM: DX FOOT BILATERAL [...] may represent joint bodies versusosseous trigonum. . Jayjay A Meverden P.A.-C. IMG DIAGNOSTIC IMAGING P ROCEDURES Final Result * US Lower Extremity Arteries Bilateral (03/05/2024 1:02 PM CDT) Anatomical Region Laterality Modality Lower Extremity, Ultrasound RST LOS, Ultrasound ARZ LOS, Ultrasound FLA LOS, Procedural, Vascular Interventional NWWI LOS Bilateral Ultrasound Impressions 03/05/2024 3:18 PM CDT RIGHT: Patent superficial femoral artery stents. New stenoses within the stents and in the [place] distal SFA below the stents. LEFT: Unchanged stenosis of the [place] proximal superficial femoral artery. Patent mid SFA stents with new stenosis at the proximal end point. Worsening stenosis in the [place] distal SFA. Similar stenoses in the popliteal [...] femoral: Interval development of stenosis within the [place] SFA below the stents. 451 cm/s today, [...] femoral: Focally elevated Doppler velocities within the [place] distal SFA (128 cm/s today, previously 100 [...] New stenoses within thestents and in the [place] distal SFA below the stents. LEFT: Unchanged stenosis of the [place] proximal superficial femoralartery. Patent mid SFA stents with new stenosis at the proximal end point.Worsening stenosis in the [place] distal SFA. Similar stenoses in thepopliteal artery [...] on the left. 2. The previously seen [place] right external iliac artery stenosis is not [...] visualized. Diffusely elevated Doppler velocities within the [place] external iliac artery without obvious focal stenosis. [...] definitely visualized. Diffusely elevatedDoppler velocities within the [place] external iliac artery without obviousfocal stenosis. LEFT: [...] stenoses on theleft. 2. The previously seen [place] right external iliac artery stenosis is notdefinitely identified today. us Jayjay Pak P.A.-C. IMSophie US PROCEDURES Final Result * ECG 12 Lead (03/05/2024 11:03 AM CDT) Ventricular Rate ECG/Min 90 BPM MUSE OH Interval 152 ms MUSE QRSD Interval 122 ms MUSE QT Interval 404 ms MUSE QTC Interval 494 ms MUSE P [place] 73 degrees MUSE R [place] -18 degrees MUSE T Wave [place] 33 degrees MUSE 03/05/2024 11:0 3 AM [...] arterial occlusive disease is severe, with worsening [id number] bilaterally. us Jayjay Pak P.A.-C. CV VASCULAR [...] CDT 02/17/2023 11:01 AM CDT Narrative [facility] - 02/17/2023 4:02 PM CDT Specimen Information: Specimen ID: [id number] Specimen Type: Blood Specimen Collection Start Date: 02/17/2023 ??9:35 AM Specimen Received Date: 02/17/2023 11:01 AM Specimen ID: [id number] Specimen Type: Blood Specimen Collection Start Date: 02/17/2023 ??9:35 AM Specimen Received Date: 02/17/2023 ??3:35 PM us Haseeb Menon Jr., D.O. LAB BLOOD ADD-ON Fin al Result [facility] [address] [place] [address], [facility] OWAT [facility] in [place] [address] [place] [address] AUST [facility] [address] [place] [address] * HCV Ab Scrn w/Reflex to HCV PCR, Serum (02/17/2023 9:35 AM CDT) HCV Ab Screen, S Negative Negative 02/18/20 3:35 PM CDT MKTO Comment: Biotin has been identified by the hvac sales engineer as a potential interfering substance. Higher concentrations of biotin may be found in multivitamins, hair/nail supplements, and workout supplements. If the result does not match clinical observations, repeat testing after patient refrains from the use of supplements for at least 12 hours. Blood (Blood, Venous) 02/17/2023 9:35 AM CDT 02/17/2023 2:[address] [facility] - 02/17/2023 3:35 PM CDT Specimen Information: Specimen ID: [id number] Specimen Type: Blood Specimen Collection Start Date: 02/17/2023 ??9:35 AM Specimen Received Date: 02/17/2023 ??2:20 PM Specimen ID: [id number] Specimen Type: Blood Specimen Collection Start Date: 02/17/2023 ??9:35 AM Specimen Received Date: 02/17/2023 ??2:16 PM Haseeb Menon Jr., D.O. LAB MICROBIOLOGY - B LOOD ORDERABLES Final Result [facility] [address] [place] [address], [facility] in [place] [address] [place] [address] * (ABNORMAL) Albumin, Random, Urine (02/17/2023 9:26 AM CDT) Microalbumin 895.0 mg/L 02/17/2023 1:53 PM CDT OW[facility] Creatinine 42 mg/dL 02/17/2023 12:50 PM CDT OW[facility] Albumin/Creatinin e Ratio 2130(H) <17 mg/g 02/17/2023 1:53 PM CDT [facility] Urine (Urine, Voided) 02/17/2023 9:26 AM CDT 02/17/2023 11:00 AM CDT us Haseeb Menon Jr., D.O. LAB URINE ORDERABLES Final Result Performing Organization Address [facility] de Phone Number [facility] [address] [place] [address], [facility] OW[facility] in [place] [address], [place] [address] * (ABNORMAL) Hemoglobin A1c (11/25/2022 2:09 PM [...] ADD-ON Fin al Result Performing Organization Address [facility] Co de Phone Number [facility] [address] [place] [address], [facility] in [place] [address], [place] [address] * (ABNORMAL) Lipid Panel (02/10/2021 8:27 AM [...] Reyes LAB BLOOD ADD[place] [address], [facility] [address] [place] [address] * CT Abdomen Pelvis Angiogram with IV [...] Most Recently Relevant to Health Maintenance Insurance [facility] MEDIC[facility] Advance Directives For more information, please contact: [phone] * Full Code (Latest Code Status on [...] Answer Comments Full Code: Discussed Care Teams Furnace Clerk Relationship Specialty Start Date End Date Elsewhere, Pcp PCP - General Family Medicine 01/29/20
--- OUTSIDE RECORDS SUMMARY | 2024-03-27 10:00 | XMS_ITS | Encounter Summary ---
Author Organization [facility] Address [address] [place] [address] Care Team Providers Care Blender Laborer Name Role Phone Elsewhere, Pcp Primary Care [...] drink = 0.6 oz pur e alcohol) [facility] Utilities Answer Date Recorded In the past 12 months has e [employer], gas, oil, or water [employer] threatened to shut off services in your [...] How often do you attend episcopalian or yazdanism serv ices? Never 03/24/2021 Do [...] Assigned at Male 03/24/2021 8:13 PM MANAGER ASSURANCE Legal Sex Male 12:04 AM MANAGER ASSURANCE Gender Identity Male 08/31/2019 2:40 PM CDT Sexual Orientation Straight 08/31/2019 2: 40 PM CDT documented as of this encounter Plan of Treatment Upcoming Encounters Date Type Department Care Team (Latest Contact Info) Description 04/03/2024 11:30 AM MANAGER ASSURANCE Hospital Encounter Post Anesthesia Care Unit in [place] [id number] [place] [phone] Kemar Velásquez M.B.B.S. 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 [address] [place] [phone] IR ENDOVASCULAR ANGIOPLASTY STENT LOWER EXTREMITY, right femoral access 04/04/2024 7:40 AM MANAGER ASSURANCE Hospital Encounter Post Anesthesia Care Unit in [place], [place] [address] [place] [phone] Kemar Velásquez M.B.B.S. 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
--- OUTSIDE RECORDS SUMMARY | 2024-03-27 10:00 | XMS_ITS | Encounter Summary ---
Author Organization [facility] Address [address] [place] [address] Care Team Providers Care Automatic Lathe Tender Name Role Phone Elsewhere, Pcp Primary Care Provider Unavailabl e Encounter Details Date Type Department Care Team (Late st Contact Info) Description 03/20/2024 Clinical Communication Division of Vascular and Endovascular Surgery in [place], [place] [address] [place] [phone] Kemar Velásquez M.B.B.S. [address] [place] [phone] Social History Tobacco Use Types Packs/Day Years Used Date Smoking Tobacco: Former Cigarettes 1 38.9 0 05/16/1983 - 04/2022 Smokeless Tobacco: Never Alcohol Use Standard Drinks/Week Comments Not Currently 0 (1 standard drink = 0.6 oz pur e alcohol) [facility] Utilities Answer Date Recorded In the past 12 months has [facility] [employer], oil, or water [employer] threatened to shut off services in your [...] How often do you attend catholic or quaker serv ices? 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/2021 8:13 PM BOOKKEEPING SERVICE SALES AGENT Legal Sex Male 12:04 AM BOOKKEEPING SERVICE SALES AGENT Gender Identity Male 08/31/2019 2:40 PM CDT Sexual Orientation Straight 08/31/2019 2: 40 PM CDT documented as of this encounter Plan of Treatment Upcoming Encounters Date Type Department Care Team (Latest Contact Info) Description 04/03/2024 11:30 AM BOOKKEEPING SERVICE SALES AGENT Hospital Encounter Post Anesthesia Care Unit in [place], [place] [address] [place] [phone] Kemar Velásquez M.B.B.S. 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 [address] [place] [phone] IR ENDOVASCULAR ANGIOPLASTY STENT LOWER EXTREMITY, right femoral access 04/04/2024 7:40 AM BOOKKEEPING SERVICE SALES AGENT Hospital Encounter Post Anesthesia Care Unit in [place], [place] [address] [place] [phone] Kemar Velásquez M.B.B.S. 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
--- OUTSIDE RECORDS SUMMARY | 2024-03-27 10:00 | XMS_ITS | Referral Summary ---
Author Organization [facility] Address [address] [place] [address] Care Team Providers Care Pipe Organ Technician Name Role Phone Elsewhere, Pcp Primary Care Provider Unavailabl e Source Comments Patient records contain information from all sites at [facility]. For routine questions regarding patient records, call [phone] during business hours, M-F 8:00 AM - 5:00 PM Central Time. Record requests for emergency care only can be directed to [phone] at any time.[facility] Encounters Date Type Department Care Team Description 03/20/2024 Clinical Communication Division of Vascular and Endovascular Surgery in [place], [place] [address] [place] [phone] Kemar Velásquez M.B.B.S. 03/13/2024 Documentation Division of Nephrology and Hypertension in [place], [place] [address] [place] [address] Haseeb Menon Jr., Kylah.O. 03/13/2024 Orders Only Division of Nephrology and Hypertension in [place], [place] [address] [place] [phone] Haseeb Menon Jr., Kylah.O. 03/12/2024 7:10 AM CDT Ancillary Procedure Department of Vascular 03/12/2024 7:05 AM CDT Ancillary Procedure Department of Vascular 03/12/2024 7:00 AM CDT Ancillary Procedure Department of Vascular 03/12/2024 6:15 AM CDT Ancillary Procedure Department of Vascular 03/12/2024 6:10 AM CDT Ancillary Procedure Department of Vascular 03/12/2024 8:00 AM CDT Comprehensive Visit Department of Vascular Medicine in [place], [place] [address] [place] [address] Kimmy Buckner APRN C.N.P., Kylah.N.P. Wound Foot Open Subsequent Right (Primary Dx); Peripheral Arterial Disease (HCC); Neuropathy Peripheral; Wound Foot Open Subsequent Left; Diabetes Mellitus Type 2 With Other Circulatory Complication (HCC) Discharge Disposition: Home or Self Care 03/12/2024 10:40 AM CDT Comprehensive Visit Division of Vascular and Endovascular Surgery in [place], [place] [address] [place] [address] Kemar Velásquez M.B.B.S. 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) 03/09/2024 6:25 PM CDT - 03/09/2024 11:59 PM CDT Hospital Encounter Department of Radiology, [place], [place] 200 [place] [address] Jayjay Pak P.A.-CFei Follow Up Examination Status Post Surgery; Peripheral Arterial Disease (HCC); Wound Foot Open Subsequent Left; Wound Foot Open Subsequent Right Discharge Disposition: Home or Self Care 03/09/2024 2:02 PM CDT - 03/09/2024 6:24 PM CDT Hospital Encounter Department of Radiology, [facility] in [place], [place] 200 [place] [address] Jayjay Pak, P.A.-CFei Follow Up Examination Status Post Surgery; Peripheral Arterial Disease (HCC); Wound Foot Open Subsequent Left; Wound Foot Open Subsequent Right Discharge Disposition: Home or Self Care 03/07/2024 Orders Only Department of Vascular Medicine in [place], [place] [address] [place] [phone] Jayjay Pak P.A.-C. 03/07/2024 10:12 AM CDT - 03/07/2024 11:59 PM CDT Hospital Encounter Department of Radiology in [place], [place] [address] [phone] Jayjay Pak P.A.-C. Peripheral Arterial Disease (HCC); Wound Foot Open Subsequent Left; Wound Foot Open Subsequent Right Discharge Disposition: Home or Self Care 03/06/2024 Orders Only Department of Vascular Medicine in [place], [place] [address] [place] [phone] Jayjay Pak P.A.-William. Peripheral Arterial Disease (HCC) (Primary Dx); Wound Foot Open Subsequent Left; Wound Foot Open Subsequent Right 03/05/2024 11:19 AM CDT - 03/05/2024 11:59 PM CDT Hospital Encounter Department of Radiology, [facility], in [address] [phone] Jayjay Pak P.A.-CFei Follow Up Examination Status Post Surgery; Peripheral Arterial Disease (HCC) Discharge Disposition: Home or Self Care 03/05/2024 7:30 AM CDT - 03/05/2024 10:59 AM CDT Hospital Encounter Department of Vascular Medicine in [place], [place] [address] [place] [phone] Jayjay Pak P.A.-CFei Follow Up Examination Status Post Surgery; Peripheral Arterial Disease (HCC) Discharge Disposition: Home or Self Care 03/05/2024 11:00 AM CDT - 03/05/2024 11:18 AM CDT Hospital Encounter Department of Radiology, [facility], in [address] [phone] Jayjay Pak P.A.-CFei Follow Up Examination Status Post Surgery; Peripheral Arterial Disease (HCC) Discharge Disposition: Home or Self Care 03/05/2024 3:00 PM CDT Office Visit Department of Vascular Medicine in [address] [phone] Jayjay Pak P.A.-CFei Follow Up Examination Status Post Surgery (Primary Dx); Peripheral Arterial Disease (HCC); Wound Foot Open Subsequent Left; Wound Foot Open Subsequent Right 02/23/2024 Refill Division of Nephrology and Hypertension in [place], [place] [address] [place] [address] Onesimo Rodriguez M.D. Med Refill 02/11/2024 Refill Division of Nephrology and Hypertension in [place], [place] [address] [place] [address] Haseeb Menon Jr. D.O. Med Refill 01/14/2024 Refill Division of Nephrology and Hypertension in [place], [place] [address] [place] [address] Onesimo oRdriguez M.D. Med Refill 01/05/2024 Orders Only Department of Vascular Medicine in [place], [place] [address] [place] [address] Jayjay Pak P.A.-C. Follow Up Examination Status Post Surgery (Primary Dx); Peripheral Arterial Disease (HCC) from Last 3 Months Allergies Active Allergy Reactions Criticality Noted Date Comments Gabapentin Other (see comments) Medium 08/04/2020 Dizzy, memory issue Morphine Itching,Rash Medium 02/14/2012 itchy Pregabalin Anaphylaxis High 02/16/2017 swell Mkngyih-Nsy-Pep Reductase Inhibitors Myalgia Low 02/13/2014 Medications DULoxetine [...] 04/21/2018 Restless Leg Syndrome 01/12/2018 Atherosclerosis Of [place] Ar teries Of Extremities With Intermittent Claudication Right Leg 08/08/2017 Hyperlipidemia 07/22/2017 Ulcer Leg Left 04/19/2017 Ulcer Toe Left 04/19/2017 Atherosclerosis Of [place] Ar teries Of Left Leg With Ulceration Of Unspecified Site 04/19/2017 Peripheral Arterial Disease 02/16/2017 Hypertension NOS 02/16/2017 Hypertensive Chronic Kidney Disease With Stage 1 Through Stage 4 Chronic Kidney Disease, Or Unspecified Chronic Kidney Disease 09/23/2016 Overview (10/05/2016): Hypertension (HTN) And CKD Stage 1-4 Custodial Use Of Insulin Active 09/23/2016 Overview (10/05/2016): [...] drink = 0.6 oz pur e alcohol) [facility] Utilities Answer Date Recorded In the past 12 months has th e [employer], gas, oil, or water company threatened to [...] How often do you attend muslim or adventism serv ices? Never 03/24/2021 Do [...] 10/20/2018 [facility] Occupat ional [facility] - Occupational Stress Questionnaire Answer [...] Sex Assigned at Male 03/24/2021 8:13 PM GLOBAL MARKETING COORDINATOR Legal Sex Male 12:04 AM GLOBAL MARKETING COORDINATOR Gender Identity Male 08/31/2019 2:40 PM [...] (Latest Contact Info) Description 04/03/2024 11:30 AM GLOBAL MARKETING COORDINATOR Hospital Encounter Post Anesthesia Care Unit in [place], [place] [address] [place] [phone] Kemar Velásquez M.B.B.S. 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 [address] [place] [phone] IR ENDOVASCULAR ANGIOPLASTY STENT LOWER EXTREMITY, right femoral access 04/04/2024 7:40 AM GLOBAL MARKETING COORDINATOR Hospital Encounter Post Anesthesia Care Unit in [place], [place] [address] [place] [phone] Kemar Velásquez M.B.B.S. 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 Body Location - Other. Vascular. Device Status Text - [id number]. Ocular Lens-10/29/2007 Implanted:10/28 by Nato Dougherty APRN, C.N.P., R.N. (Quantity not on file) Ocular Lens Bilateral: Eye Description:Cataract extract ion and insertion of intraocular lens 06/22/2016 09:27 - NATO DOUGHERTY APRN EDI DEVELOPER bilateral Conversions - Default Historical Implant Device [...] 6mm X 29mm X 135cm - Flores [id number] Implanted:Qty: 1 on 03/04/2017 Vascular Graft Spencer Description:Device Manufactu rer - [employer]. Device Status Text - [id number]. Stent Vbx [id number] - Flores [id number] Implanted:Qty: 1 on 03/04/2017 Vascular Graft Other/Legacy - See Implant Description Spencer Description:Device Manufactu rer - [employer] Body Location - Other. n/a. Device Status Text - [id number]. Stent Vbx [id number] - Flores [id number] Implanted:Qty: 1 on 03/04/2017 Vascular Graft Other/Legacy - See Implant Description Spencer Description:Device Manufactu rer - [employer] Body Location - Other. n/a. Device Status Text - [id number]. Stent Zilver Ptx 6mm X 40mm - Flores [id number] Implanted:Qty: 1 on 04/04/2017 Vascular Stent Other/Legacy - See Implant Description Pathways Platform Description:Device Manufactu Electric Objects - Pathways Platform. Body Location - Other. Left. Device Status Text - [id number]. Stent Zilver Ptx 6mm X 60mm - Flores [id number] Implanted:Qty: 1 on 04/04/2017 Vascular Stent Other/Legacy - See Implant Description Pathways Platform Description:Device Manufactu [employer] - Pathways Platform. Body Location - Other. Left. Device Status Text - [id number]. Stent Zilver Ptx 6mm X 80mm - Flores [id number] Implanted:Qty: 1 on 08/31/2017 Vascular Stent Right: Other/Legacy - See Implant Description Pathways Platform / [id number] / Description:Device Manufactu Payment plugin. Body Location - Right. Device Status Text - [id number]. Stent Zilver Ptx 6mm X 40mm - Flores [id number] Implanted:Qty: 1 on 08/31/2017 Vascular Stent Right: Other/Legacy - See Implant Description Pathways Platform / [id number] / Description:Device Manufactu rer - Pathways Platform. Body Location - Right. Device Status Text - [id number]. Stnt Innova Otw [id number] - [id number] Implanted:Qty: 1 on 04/18/2018 by Kemar Velásquez M.B.B.S. at [facility] Vascular Stent [employer] 05/23/2020 [id number] / / [id number] Stnt Innova Otw [id number] - [id number] Implanted:Qty: 1 on 05/11/2019 by Kemar Velásquez M.B.B.S. at [facility] Vascular Stent Left: Leg [employer] 09/05/2020 [id number] / / [id number] Procedures Procedure Name Priority Date/Time Associated Diagnosis [...] Renal Disease Acidosis Metabolic Hyperchloremic Atherosclerosis Of [place] Arteries Of Extremities With Intermittent Claudication Right [...] in the mid left SFA (series 5, [id number]) over short segment the level of the [...] howeversomewhat limited evaluation. us Jayjay Pak P.A.-C. IM CT PROCEDURES Final Result * (ABNORMAL) Creatinine, [...] ORDERABLES - DEVICE Fi nal Result POC [facility] [address] [place] [address], [facility] PCDT [facility] [place] POC [address] [place] [address] * DX Foot Bilateral 3+ Views (03/07/2024 [...] stenoses within the stents and in the [place] distal SFA below the stents. LEFT: Unchanged stenosis of the [place] proximal superficial femoral artery. Patent mid SFA stents with new stenosis at the proximal end point. Worsening stenosis in the [place] distal SFA. Similar stenoses in the popliteal [...] femoral: Interval development of stenosis within the [place] SFA below the stents. 451 cm/s today, [...] femoral: Focally elevated Doppler velocities within the [place] distal SFA (128 cm/s today, previously 100 [...] New stenoses within thestents and in the [place] distal SFA below the stents. LEFT: Unchanged stenosis of the [place] proximal superficial femoralartery. Patent mid SFA stents with new stenosis at the proximal end point.Worsening stenosis in the [place] distal SFA. Similar stenoses in thepopliteal artery [...] on the left. 2. The previously seen [place] right external iliac artery stenosis is not [...] visualized. Diffusely elevated Doppler velocities within the [place] external iliac artery without obvious focal stenosis. [...] definitely visualized. Diffusely elevatedDoppler velocities within the [place] external iliac artery without obviousfocal stenosis. LEFT: [...] stenoses on theleft. 2. The previously seen [place] right external iliac artery stenosis is notdefinitely identified today. us Jayjay Pak P.A.-C. IMG US PROCEDURES Final Result * ECG 12 Lead (03/05/2024 11:03 AM CDT) Ventricular Rate ECG/Min 90 BPM MUSE WV Interval 152 ms MUSE QRSD Interval 122 ms MUSE QT Interval 404 ms MUSE QTC Interval 494 ms MUSE P [place] 73 degrees MUSE R [place] -18 degrees MUSE T Wave [place] 33 degrees MUSE 03/05/2024 11:0 3 AM [...] arterial occlusive disease is severe, with worsening [id number] bilaterally. us Jayjay Pak P.A.-C. CV VASCULAR [...] AM CDT 02/17/2023 11:01 AM CDT Narrative [facility] - 02/17/2023 4:02 PM CDT Specimen Information: Specimen ID: [id number] Specimen Type: Blood Specimen Collection Start Date: 02/17/2023 ??9:35 AM Specimen Received Date: 02/17/2023 11:01 AM Specimen ID: [id number] Specimen Type: Blood Specimen Collection Start Date: 02/17/2023 ??9:35 AM Specimen Received Date: 02/17/2023 ??3:35 PM us Haseeb Menon Jr., D.O. LAB BLOOD ADD-ON Fin al Result [facility] [address] [place] [address], [facility] [place] [address] [place] [address] AUST [facility] [address] [place] [address] * HCV Ab Scrn w/Reflex to HCV PCR, Serum (02/17/2023 9:35 AM CDT) HCV Ab Screen, S Negative Negative 02/18/20 3:35 PM CDT [facility] Comment: Biotin has been identified by the winter intern as a potential interfering substance. Higher concentrations of biotin may be found in multivitamins, hair/nail supplements, and workout supplements. If the result does not match clinical observations, repeat testing after patient refrains from the use of supplements for at least 12 hours. Blood (Blood, Venous) 02/17/2023 9:35 AM CDT 02/17/2023 2:20 PM CDT Narrative [facility] - 02/17/2023 3:35 PM CDT Specimen Information: Specimen ID: [id number] Specimen Type: Blood Specimen Collection Start Date: 02/17/2023 ??9:35 AM Specimen Received Date: 02/17/2023 ??2:20 PM Specimen ID: [id number] Specimen Type: Blood Specimen Collection Start Date: 02/17/2023 ??9:35 AM Specimen Received Date: 02/17/2023 ??2:16 PM us Haseeb Menon Jr., D.O. LAB MICROBIOLOGY - B LOOD ORDERABLES Final Result Performing Organization Address [facility] Co de Phone Number [facility] [address] [place] [address], [place] MKTO [facility] in [place] [address] [place] [address] * (ABNORMAL) Albumin, Random, Urine (02/17/2023 9:26 AM CDT) Microalbumin 895.0 mg/L 02/17/2023 1:53 PM CDT [facility] Creatinine 42 mg/dL 02/17/2023 12:50 PM CDT [facility] Albumin/Creatinin e Ratio 2131(H) <17 mg/g 02/17/2023 1:53 PM CDT [facility] Urine (Urine, Voided) 02/17/2023 9:26 AM CDT 02/17/2023 11:00 AM CDT us Haseeb Menon Jr., D.O. LAB URINE ORDERABLES Final Result Performing Organization Address [facility] Co de Phone Number [facility] [address] [place] [address], [facility] OWAT [facility] in [place] [address] [place] [address] * (ABNORMAL) Hemoglobin A1c (11/25/2022 2:09 PM [...] D.O. LAB BLOOD ADD-ON Fin al Result [facility] [address] [place] [address], [place] [facility] [facility] in [place] [address] [place] [address] * (ABNORMAL) Lipid Panel (02/10/2021 8:27 AM CDT) [facility] Cholesterol, Total 102 mg/dL 2020 [...] Reyes LAB BLOOD ADD-ON Final Resu lt [facility] [address] [place] [address], [place] DTL [facility] [address] [place] [address] * CT Abdomen Pelvis Angiogram with IV [...] Most Recently Relevant to Health Maintenance Insurance [facility] MEDICARE Advance Directives For more information, please contact: [phone] * Full Code (Latest Code Status on [...] Answer Comments Full Code: Discussed Care Teams Pipe Organ Technician Relationship Specialty Start Date End Date Elsewhere, Pcp PCP - General Family Medicine 01/29/20
--- OUTSIDE RECORDS SUMMARY | 2024-03-27 10:00 | XMS_ITS | Encounter Summary ---
Author Organization [facility] Address [address] [place] [address] Care Team Providers Care Beef Splitter Name Role Phone Elsewhere, Pcp Primary Care Provider Unavailabl e Encounter Details Date Type Department Care Team (Late st Contact Info) Description 03/13/2024 Orders Only Division of Nephrology and Hypertension in [place], [place] [address] [place] [address] Haseeb Menon Jr., D.O. [address] [place] [address] Social History Tobacco Use Types Packs/Day Years Used Date Smoking Tobacco: Former Cigarettes 1 38.9 0 05/16/1983 - 04/2022 Smokeless Tobacco: Never Alcohol Use Standard Drinks/Week Comments Not Currently 0 (1 standard drink = 0.6 oz pur e alcohol) [facility] Utilities Answer Date Recorded In the past 12 months has [facility] [employer], gas, oil, or water [employer] threatened to shut off services in your [...] How often do you attend mandaeism or baptism serv ices? Never 03/24/2021 Do [...] a [facility] place to live 03/11/2024 Education Answer Date Recorded What is the highest level of school you have completed or the highest degree you have received? Some college, no degree 03/24/2021 Sex and Gender Information Value Date Recorded Sex Assigned at Male 03/24/2021 8:13 PM HEEL COVERER Legal Sex Male 12:04 AM HEEL COVERER Gender Identity Male 08/31/2019 2:40 PM CDT Sexual Orientation Straight 08/31/2019 2: 40 PM CDT documented as of this encounter Plan of Treatment Upcoming Encounters Date Type Department Care Team (Latest Contact Info) Description 04/03/2024 11:30 AM HEEL COVERER Hospital Encounter Post Anesthesia Care Unit in [place], [place] [address] [place] [phone] Kemar Velásquez M.B.B.S. 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 [address] [place] [phone] IR ENDOVASCULAR ANGIOPLASTY STENT LOWER EXTREMITY, right femoral access 04/04/2024 7:40 AM HEEL COVERER Hospital Encounter Post Anesthesia Care Unit in [place], [place] [address] [place] [phone] Kemar Velásquez M.B.B.S. 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
--- OUTSIDE RECORDS SUMMARY | 2024-03-27 10:00 | XMS_ITS ---
Author Organization [facility] Address [address] [place] [address] Care Team Providers Care Automotive General Sales Manager Name Role Phone Unavailable Unavailable Unavailable Surgery Details Not on file Complications Check Surgery Details section. Procedure Estimated Blood Loss Check Surgery Details section. Procedure Findings Check Surgery Details section. Procedure Specimens Taken Check Surgery Details section.
--- OUTSIDE RECORDS SUMMARY | 2024-03-27 10:00 | XMS_ITS | Encounter Summary ---
Author Organization [facility] Address [address] [place] [address] Care Team Providers Care Blocklayer Name Role Phone Elsewhere, Pcp Primary Care Provider Unavailabl e Encounter Details Date Type Department Care Team (Late st Contact Info) Description 03/13/2024 Documentation Division of Nephrology and Hypertension in [place], [place] [address] [place] [address] Haseeb Menon Jr., D.O. [address] [place] [address] Social History Tobacco Use Types Packs/Day Years Used Date Smoking Tobacco: Former Cigarettes 1 38.9 0 05/16/1983 - 04/2022 Smokeless Tobacco: Never Alcohol Use Standard Drinks/Week Comments Not Currently 0 (1 standard drink = 0.6 oz pur e alcohol) [facility] Utilities Answer Date Recorded In the past 12 months has [facility] [employer] gas, oil, or water [employer] threatened to shut off services in your [...] How often do you attend hindu or tenriism serv ices? Never 03/24/2021 Do [...] PHQ-2 Score 0 10/20/2018 [facility] [place] of Occupat ional Health - Occupational Stress [...] have a [facility] place to live 03/11/2024 Education Answer Date Recorded What is the highest level of school you have completed or the highest degree you have received? Some college, no degree 03/24/2021 Sex and Gender Information Value Date Recorded Sex Assigned at Male 03/24/2021 8:13 PM HOLE DIGGER OPERATOR Legal Sex Male 12:04 AM HOLE DIGGER OPERATOR Gender Identity Male 08/31/2019 2:40 PM CDT Sexual Orientation Straight 08/31/2019 2: 40 PM CDT documented as of this encounter Progress Notes * Haseeb Menon Jr., D.O. - 03/13/2024 9:54 AM CDT Care coordination-monthly peritoneal dialysis visit Please see the [employer] application in the Care everywhere section of [...] (Latest Contact Info) Description 04/03/2024 11:30 AM HOLE DIGGER OPERATOR Hospital Encounter Post Anesthesia Care Unit in [address] [phone] Kemar Velásquez M.B.B.S. 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 [address] [place] [phone] IR ENDOVASCULAR ANGIOPLASTY STENT LOWER EXTREMITY, right femoral access 04/04/2024 7:40 AM HOLE DIGGER OPERATOR Hospital Encounter Post Anesthesia Care Unit in [address] [phone] Kemar Velásquez M.B.B.S. 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
--- OUTSIDE RECORDS SUMMARY | 2024-03-27 10:01 | XMS_ITS | Encounter Summary ---
Author Organization [facility] Address [address] [place] [address] Care Team Providers Care Cooperage Shop Supervisor Name Role Phone Elsewhere, Pcp Primary [...] e alcohol) [facility] Utilities Answer Date Recorded In the past 12 months has e [employer], gas, oil, or water [employer] threatened to shut off services in your [...] Answer Date Recorded PHQ-2 Score 0 10/20/2018 [facility] of Occupat ional Health - Occupational [...] living situation today? I have a [facility] place to live 03/11/2024 Education Answer Date Recorded What is the highest level of school you have completed or the highest degree you have received? Some college, no degree 03/24/2021 Sex and Gender Information Value Date Recorded Sex Assigned at Male 03/24/2021 8:13 PM HOP FARM WORKER Legal Sex Male 12:04 AM HOP FARM WORKER Gender Identity Male 08/31/2019 2:40 PM CDT Sexual Orientation Straight 08/31/2019 2: 40 PM CDT documented as of this encounter Plan of Treatment Upcoming Encounters Date Type Department Care Team (Latest Contact Info) Description 04/03/2024 11:30 AM HOP FARM WORKER Hospital Encounter Post Anesthesia Care Unit in [place] [phone] [place] [phone] Kemar Velásquez M.B.B.S. 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 [address] [place] [phone] IR ENDOVASCULAR ANGIOPLASTY STENT LOWER EXTREMITY, right femoral access 04/04/2024 7:40 AM HOP FARM WORKER Hospital Encounter Post Anesthesia Care Unit in [place], [place] [address] [place] [phone] Kemar Velásquez M.B.B.S. 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
--- OUTSIDE RECORDS SUMMARY | 2024-03-27 10:01 | XMS_ITS | Encounter Summary ---
Author Organization [facility] Address [address] [place] [address] Care Team Providers Care Dental Laboratory Supervisor Name Role Phone Elsewhere, Pcp Primary [...] drink = 0.6 oz pur e alcohol) [facility] Utilities Answer Date Recorded In the past 12 months has e [employer], gas, oil, or water [employer] threatened to shut off services in your [...] How often do you attend jew or druze serv ices? Never 03/24/2021 Do [...] PHQ-2 Score 0 10/20/2018 [facility] of Occupat ional Health - Occupational [...] a [facility] place to live 03/11/2024 Education Answer Date Recorded What is the highest level of school you have completed or the highest degree you have received? Some college, no degree 03/24/2021 Sex and Gender Information Value Date Recorded Sex Assigned at Male 03/24/2021 8:13 PM COKE STILL CLEANER Legal Sex Male 12:04 AM COKE STILL CLEANER Gender Identity Male 08/31/2019 2:40 PM CDT Sexual Orientation Straight 08/31/2019 2: 40 PM CDT documented as of this encounter Plan of Treatment Upcoming Encounters Date Type Department Care Team (Latest Contact Info) Description 04/03/2024 11:30 AM COKE STILL CLEANER Hospital Encounter Post Anesthesia Care Unit in [place] [id number] [place] [phone] Kemar Velásquez M.B.B.S. 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 [address] [place] [phone] IR ENDOVASCULAR ANGIOPLASTY STENT LOWER EXTREMITY, right femoral access 04/04/2024 7:40 AM COKE STILL CLEANER Hospital Encounter Post Anesthesia Care Unit in [place], [place] [address] [place] [phone] Kemar Velásquez M.B.B.S. 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
--- OUTSIDE RECORDS SUMMARY | 2024-03-27 10:01 | XMS_ITS | Encounter Summary ---
Author Organization [facility] Address [address] [place] [address] Care Team Providers Care Dam Tender Assistant Name Role Phone Elsewhere, Pcp Primary Care Provider Unavailabl e Reason for Visit * Outpatient (Routine) - Closed Specialty Diagnoses / Procedures Referred By Robi t Referred To Contact Vascular Medicine Diagnoses Peripheral Arterial Disease (HCC) Wound Foot Open Subsequent Left Wound Foot Open Subsequent Right Jayjay Pak, Laine-Jennifer [address] [place] [phone] Phone: tel: fax: [facility] Referral ID Status Reason Start Date Expiration Date Visits Re quested Visits Authorized [id number] Closed 03/06/2024 09/05/2025 1 1 Encounter Details Date Type Department Care Team (Late st Contact Info) Description 03/12/2024 8:00 AM CDT Comprehensive Visit Department of Vascular Medicine in [place], [place] [address] [place] [phone] Kimmy Buckner APRN, C.N.P., D.N.P. [address] [place] [phone] Wound Foot Open Subsequent Right (Primary Dx); [...] drink = 0.6 oz pur e alcohol) [facility] Utilities Answer Date Recorded In the [...] often do you attend adventism or jainism serv ices? Never 03/24/2021 Do [...] [facility] 03/11/2024 Education Answer Date Recorded What is the highest level of school you have completed or the highest degree you have received? Some college, no degree 03/24/2021 Sex and Gender Information Value Date Recorded Sex Assigned at Male 03/24/2021 8:13 PM WEAPONS MECHANIC Legal Sex Male 12:04 AM WEAPONS MECHANIC Gender Identity Male 08/31/2019 2:40 PM [...] call to order at couple sets. [employer], [place] [address] [place] [address], [address] [place] [address] Email: [email or web address] Discussed using wool socks (Petit wool socks) [...] This order can be filled at the [facility] or other durable medical equipment store. Directions to the [facility] Downtown: Take the elevator down to the Subway level. Go straight out of the elevator. The [facility] Store will be just past the [employer] on the left. [facility], Address: [address] [place] [address]. . The [facility] also has a Mail-Order Service available to most states. [phone] Nearly all these items can be found for purchase online (if insurance does not provide coverage foryour dressings). Most standard drug stores do not carry wound supplies. Durable medical supply stores do. We cannot renew a supply order for you after three months unless you are re-assessed by a wound care provider, so be sure to come to your next appointment. Tell the [facility] when your next appointment is. Your insurance will not pay for supplies unless you are seen at least every month. Edemawear can be found on [employer]ideos[employer] Vashe can be found at the [facility], online on [employer], [employer], or [employer]. It is sometimes found in stores at [employer]. If you have any wound care questions or concerns please contact the Vascular Center at [phone]. If you need to cancel, reschedule, or schedule a wound care appointment please call [phone]. Provider Signature Kimmy Buckner APRN, C.N.P., Kylah.N.P. documented in this encounter Consult Notes * Kimmy Buckner APRN, C.N.P., EstivenNFeiP. - 03/12/2024 8:00 AM CDT SUBJECTIVE REFERRAL INFORMATION Jayjay Pak P.A.-C. [address] [place] [phone] CHIEF COMPLAINT/REASON FOR VISIT slow healing wounds [...] Mr. Walton has been followed in the [facility] for lower extremity [...] 2023/May 2023. He has been followed in [facility]. They have been using Aquacel. He was [...] he feels unbalanced. Therefore, he was wearing [id number] shelves. He was heavily walking throughout the [...] surgery for evaluation/amputation. He follows at the [facility] wound care clinic. In review of his [...] 15 minutes. Recommend use of edema wear ([place] stripe) and elevation as tolerated. Recommend offloading [...] visit: As needed. Desires to returned to [facility] for ongoing wound care. He and family will let me know if he desires a return visit to [facility] vascular Wound [facility]. It was a [...] (Latest Contact Info) Description 04/03/2024 11:30 AM WEAPONS MECHANIC Hospital Encounter Post Anesthesia Care Unit in [address] [phone] Kemar Velásquez M.B.B.S. 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 [address] [place] [phone] IR ENDOVASCULAR ANGIOPLASTY STENT LOWER EXTREMITY, right femoral access 04/04/2024 7:40 AM WEAPONS MECHANIC Hospital Encounter Post Anesthesia Care Unit in [address] [phone] Kemar Velásquez M.B.B.S. 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
--- OUTSIDE RECORDS SUMMARY | 2024-03-27 10:01 | XMS_ITS | Encounter Summary ---
Author Organization [facility] Address [address] [place] [address] Care Team Providers Care Hat Lining Paster Name Role Phone Elsewhere, Pcp Primary Care Provider Unavailabl e Reason for Visit * Outpatient (Routine) - Closed Specialty Diagnoses / Procedures Referred By Robi t Referred To Contact Vascular Surgery Diagnoses Peripheral Arterial Disease (HCC) Jayjay Pak, Arcadio [address] [place] [phone] Phone: tel: fax: [facility] Referral ID Status Reason Start Date Expiration Date Visits Re quested Visits Authorized [id number] Closed 03/06/2024 09/05/2025 1 1 Encounter Details Date Type Department Care Team (Latest Contact Info) Description 03/12/2024 10:40 AM CDT Comprehensive Visit Division of Vascular and Endovascular Surgery in [place], [place] [address] [place] [address] Kemar Velásquez M.B.B.S. 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 Utilities Answer Date Recorded In the [...] How often do you attend taoism or nondenominational serv ices? Never 03/24/2021 Do [...] 0 10/20/2018 [facility] - Occupational Stress Questionnaire Answer [...] a [facility] place to live 03/11/2024 Education Answer Date Recorded What is the highest level of school you have completed or the highest degree you have received? Some college, no degree 03/24/2021 Sex and Gender Information Value Date Recorded Sex Assigned at Male 03/24/2021 8:13 PM WHEEL TRUER Legal Sex Male 12:04 AM WHEEL TRUER Gender Identity Male 08/31/2019 2:40 PM CDT [...] for left leg CLTI and performed left LINTER SAW SHARPENER endarterectomy with patch angioplasty along with SFA [...] (Latest Contact Info) Description 04/03/2024 11:30 AM WHEEL TRUER Hospital Encounter Post Anesthesia Care Unit in [address] [phone] Kemar Velásquez M.B.B.S. 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 [address] [place] [phone] IR ENDOVASCULAR ANGIOPLASTY STENT LOWER EXTREMITY, right femoral access 04/04/2024 7:40 AM WHEEL TRUER Hospital Encounter Post Anesthesia Care Unit in [address] [phone] Kemar Velásquez M.B.B.S. 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
--- OUTSIDE RECORDS SUMMARY | 2024-03-27 10:01 | XMS_ITS | Encounter Summary ---
Author Organization [facility] Address [address] [place] [address] Care Team Providers Care Mid Level Java Developer Name Role Phone Elsewhere, Pcp Primary [...] drink = 0.6 oz pur e alcohol) [facility] Utilities Answer Date Recorded In the past 12 months has e [employer], gas, oil, or water [employer] threatened to shut off services in your [...] How often do you attend catholic or mandaeism serv ices? Never 03/24/2021 Do [...] your living situation today? I have a [facility] place to live 03/11/2024 Education Answer Date Recorded What is the highest level of school you have completed or the highest degree you have received? Some college, no degree 03/24/2021 Sex and Gender Information Value Date Recorded Sex Assigned at Male 03/24/2021 8:13 PM FIELD ARTILLERY FIRE CONTROL MAN Legal Sex Male 12:04 AM FIELD ARTILLERY FIRE CONTROL MAN Gender Identity Male 08/31/2019 2:40 PM CDT Sexual Orientation Straight 08/31/2019 2: 40 PM CDT documented as of this encounter Plan of Treatment Upcoming Encounters Date Type Department Care Team (Latest Contact Info) Description 04/03/2024 11:30 AM FIELD ARTILLERY FIRE CONTROL MAN Hospital Encounter Post Anesthesia Care Unit in [place] [id number] [place] [phone] Kemar Velásquez M.B.B.S. 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 [address] [place] [phone] IR ENDOVASCULAR ANGIOPLASTY STENT LOWER EXTREMITY, right femoral access 04/04/2024 7:40 AM FIELD ARTILLERY FIRE CONTROL MAN Hospital Encounter Post Anesthesia Care Unit in [place], [place] [address] [place] [phone] Kemar Velásquez M.B.B.S. 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
--- OUTSIDE RECORDS SUMMARY | 2024-03-27 10:01 | XMS_ITS | Encounter Summary ---
Author Organization [facility] Address [address] [place] [address] Care Team Providers Care Compressed Yeast Supervisor Name Role Phone Elsewhere, Pcp Primary Care Provider Unavailabl e Encounter Details Date Type Department Care Team (Late st Contact Info) Description 03/12/2024 6:10 AM CDT Ancillary Procedure Department of Vascular Social History Tobacco Use Types Packs/Day Years Used Date Smoking Tobacco: Former Cigarettes 1 38.9 0 05/16/1983 - 04/2022 Smokeless Tobacco: Never Alcohol Use Standard Drinks/Week Comments Not Currently 0 (1 standard drink = 0.6 oz pur e alcohol) [facility] Utilities Answer Date Recorded In the past 12 months has e [employer], gas, oil, or water [employer] threatened to shut off services in your [...] How often do you attend caodaism or religion serv ices? Never 03/24/2021 Do [...] [facility] place to [facility] 03/11/2024 Education Answer Date Recorded What is the highest level of school you have completed or the highest degree you have received? Some college, no degree 03/24/2021 Sex and Gender Information Value Date Recorded Sex Assigned at Male 03/24/2021 8:13 PM FRAMING MILL OPERATOR Legal Sex Male 12:04 AM FRAMING MILL OPERATOR Gender Identity Male 08/31/2019 2:40 PM CDT Sexual Orientation Straight 08/31/2019 2: 40 PM CDT documented as of this encounter Plan of Treatment Upcoming Encounters Date Type Department Care Team (Latest Contact Info) Description 04/03/2024 11:30 AM FRAMING MILL OPERATOR Hospital Encounter Post Anesthesia Care Unit in [place] [id number] [place] [phone] Kemar Velásquez M.B.B.S. 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 [address] [place] [phone] IR ENDOVASCULAR ANGIOPLASTY STENT LOWER EXTREMITY, right femoral access 04/04/2024 7:40 AM FRAMING MILL OPERATOR Hospital Encounter Post Anesthesia Care Unit in [place], [place] [address] [place] [phone] Kemar Velásquez M.B.B.S. 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
--- OUTSIDE RECORDS SUMMARY | 2024-03-27 10:01 | XMS_ITS | Encounter Summary ---
Author Organization [facility] Address [address] [place] [address] Care Team Providers Care Side Stitching Machine Operator Name Role Phone Elsewhere, Pcp [...] with IV Contrast Jayjay Pak P.A.-C. 200 [place] [address] Phone: tel: fax: [facility] Referral ID Status Reason Start Date Expiration Date Visits Re quested Visits Authorized [id number] Closed 03/07/2024 03/07/2025 1 1 Reason for Visit * MRI/CAT/PET Scan (Routine) - Closed Specialty Diagnoses / Procedures Referred By Contac t Referred To Contact Radiology Diagnoses Follow Up Examination Status Post Surgery Peripheral Arterial Disease (HCC) Wound Foot Open Subsequent Left Wound Foot Open Subsequent Right Procedures MR Foot Right without and with IV Contrast Jayjay Pak P.A.-C. 200 [place] [address] Phone: tel: fax: [facility] Referral ID Status Reason Start Date Expiration Date Visits Re quested Visits Authorized [id number] Closed 03/07/2024 03/07/2025 1 1 Encounter Details Date Type Department Care Team (Latest Contact Info) Description 03/09/2024 6:25 PM CDT - 03/09/2024 11:59 PM CDT Hospital Encounter Department of Radiology, [facility], in [place], [place] [address] [place] [address] Jayjay Pak P.A.-C. [address] [place] [address] Follow Up Examination Status Post Surgery; Peripheral [...] How often do you attend yazdanism or gnosticism serv ices? Never 03/24/2021 Do [...] 0 10/20/2018 [facility] - Occupational Stress Questionnaire Answer Date [...] Sex Assigned at Male 03/24/2021 8:13 PM CHURNER Legal Sex Male 12:04 AM CHURNER Gender Identity Male 08/31/2019 2:40 PM CDT [...] CAPSULE BY MOUTH EVERY DAY CARE HOME 01/14/2022 multivitamin renal failure (Dialyvite) 50-0.5 mg [...] Take 0.5 mg by mouth at bedtime. UNABLE TO FIND Insulin pump sennosides-docus ate sodium (SENOKOT-S) 8.6-50 mg per tablet Take 1 tablet by mouth 2 (two) times a day. 180 tablet 3 03/21/2023 4 carvediloL (COREG) 25 mg tablet Take 2 tablets (50 mg total) by mouth 2 (two) times a day with meals. 03/25/2021 4 documented as of this encounter Plan of Treatment Upcoming Encounters Date Type Department Care Team (Latest Contact Info) Description 04/03/2024 11:30 AM [facility] Hospital Encounter Post Anesthesia Care Unit in [place], [place] [address] [place] [phone] Kemar Velásquez M.B.B.S. 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 [address] [place] [phone] IR ENDOVASCULAR ANGIOPLASTY STENT LOWER EXTREMITY, right femoral access 04/04/2024 7:40 AM CHURNER Hospital Encounter Post Anesthesia Care Unit in [place], [place] [address] [place] [phone] Kemar Velásquez M.B.B.S. 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
--- OUTSIDE RECORDS SUMMARY | 2024-03-27 10:02 | XMS_ITS | Encounter Summary ---
Author Organization [facility] Address [address] [place] [address] Care Team Providers Care Drop Wire Aliner Name Role Phone Elsewhere, Pcp Primary Care Provider Unavailabl e Reason for Visit * Reason Comments Med Refill Encounter Details Date Type Department Care Team (Late st Contact Info) Description 02/11/2024 Refill Division of Nephrology and Hypertension in [place], [place] [address] [place] [address] Haseeb Menon Jr., D.O. [address] [place] [phone] Med Refill Social History Tobacco Use Types [...] How often do you attend denominational or druze serv ices? Never 03/24/2021 Do [...] Score 0 10/20/2018 [facility] - Occupational Stress Questionnaire Answer [...] Assigned at Male 03/24/2021 8:13 PM UTILITY INSPECTOR Legal Sex Male 12:04 AM UTILITY INSPECTOR Gender Identity Male 08/31/2019 2:40 PM CDT Sexual Orientation Straight 08/31/2019 2: 40 PM CDT documented as of this encounter Miscellaneous Notes * Telephone Encounter - Brandon Kaur R.N. - 02/20/2024 8:51 AM CDT discontinued documented in this encounter Plan of Treatment Upcoming Encounters Date Type Department Care Team (Latest Contact Info) Description 04/03/2024 11:30 AM UTILITY INSPECTOR Hospital Encounter Post Anesthesia Care Unit in [place], [place] [address] [place] [address] Kemar Velásquez M.B.B.S. 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 [address] [place] [phone] IR ENDOVASCULAR ANGIOPLASTY STENT LOWER EXTREMITY, right femoral access 04/04/2024 7:40 AM UTILITY INSPECTOR Hospital Encounter Post Anesthesia Care Unit in [place], [place] [address] [place] [phone] Kemar Velásquez M.B.B.S. 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
--- OUTSIDE RECORDS SUMMARY | 2024-03-27 10:02 | XMS_ITS | Encounter Summary ---
Author Organization [facility] Address [address] [place] [phone] Care Team Providers Care Degree Clerk Name Role Phone Elsewhere, Pcp Primary Care Provider Unavailabl e Encounter Details Date Type Department Care Team (Late st Contact Info) Description 03/07/2024 Orders Only Department of Vascular Medicine in [place], [place] [address] [place] [phone] Jayjay Pak, Laine-C. [address] [place] [phone] Social History Tobacco Use Types Packs/Day Years Used Date Smoking Tobacco: Former Cigarettes 1 38.9 0 05/16/1983 - 04/2022 Smokeless Tobacco: Never Alcohol Use Standard Drinks/Week Comments Not Currently 0 (1 standard drink = 0.6 oz pur e alcohol) [facility] Utilities Answer Date Recorded In the past 12 months has [facility] [employer], oil, or water [employer] threatened to shut off services in your [...] How often do you attend worship or lutheran serv ices? Never 03/24/2021 Do [...] PHQ-2 Score 0 10/20/2018 [facility] - Occupational Stress [...] your living situation today? I have a [facility] place to live 03/11/2024 Education Answer Date Recorded What is the highest level of school you have completed or the highest degree you have received? Some college, no degree 03/24/2021 Sex and Gender Information Value Date Recorded Sex Assigned at Male 03/24/2021 8:13 PM SECONDARY SCHOOL TEACHER Legal Sex Male 12:04 AM SECONDARY SCHOOL TEACHER Gender Identity Male 08/31/2019 2:40 PM CDT Sexual Orientation Straight 08/31/2019 2: 40 PM CDT documented as of this encounter Plan of Treatment Upcoming Encounters Date Type Department Care Team (Latest Contact Info) Description 04/03/2024 11:30 AM SECONDARY SCHOOL TEACHER Hospital Encounter Post Anesthesia Care Unit in [place], [place] [address] [place] [phone] Kemar Velásquez M.B.B.S. 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 [address] [place] [phone] IR ENDOVASCULAR ANGIOPLASTY STENT LOWER EXTREMITY, right femoral access 04/04/2024 7:40 AM SECONDARY SCHOOL TEACHER Hospital Encounter Post Anesthesia Care Unit in [place], [place] [address] [place] [phone] Kemar Velásquez M.B.B.S. 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
--- OUTSIDE RECORDS SUMMARY | 2024-03-27 10:02 | XMS_ITS | Encounter Summary ---
Author Organization [facility] Address [address] [place] [address] Care Team Providers Care Fig Caprifier Name Role Phone Elsewhere, Pcp Primary Care Provider Unavailabl e Reason for Visit * Outpatient (Routine) - Closed Specialty Diagnoses / Procedures Referred By Robi hong Referred To Contact Diagnoses Follow Up Examination Status Post Surgery Peripheral Arterial Disease (HCC) Procedures Lower Extremity Arterial (MIMI) - TCPO2 (Wound) Lower Extremity Arterial (MIMI) - Exercise (Claudication) Jayjay Pak P.A.-C. [address] [place] [phone] Phone: tel: fax: [facility] Referral ID Status Reason Start Date Expiration Date Visits Re quested Visits Authorized [id number] Closed 01/05/2024 01/04/2025 1 1 Encounter Details Date Type Department Care Team (Latest Contact Info) Description 03/05/2024 7:30 AM CDT - 03/05/2024 10:59 AM CDT Hospital Encounter Department of Vascular Medicine in [place], [place] [address] [place] [address] Jayjay Pak P.A.-C. [address] [place] [phone] Follow Up Examination Status Post Surgery; Peripheral [...] How often do you attend jain or uatsdin serv ices? Never 03/24/2021 Do [...] Answer Date Recorded PHQ-2 Score 0 10/20/2018 [facility] - Occupational Stress [...] Sex Assigned at Male 03/24/2021 8:13 PM WATERMELON HARVESTING SUPERVISOR Legal Sex Male 12:04 AM WATERMELON HARVESTING SUPERVISOR Gender Identity Male 08/31/2019 2:40 PM [...] TAKE ONE CAPSULE BY MOUTH EVERY DAY BLADE BENDER FURNACE TENDER 01/14/2022 nortriptyline (PAMELOR) 50 mg capsule Take [...] (Latest Contact Info) Description 04/03/2024 11:30 AM WATERMELON HARVESTING SUPERVISOR Hospital Encounter Post Anesthesia Care Unit in [address] [address] Kemar Velásquez M.B.B.S. 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 [address] [place] [phone] IR ENDOVASCULAR ANGIOPLASTY STENT LOWER EXTREMITY, right femoral access 04/04/2024 7:40 AM WATERMELON HARVESTING SUPERVISOR Hospital Encounter Post Anesthesia Care Unit in [address] [address] Kemar Velásquez M.B.B.S. 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 us Jayjay Pak P.A.-C. CV VASCULAR [...] documented as of this encounter Care Teams Fig Caprifier Relationship Specialty Start Date End Date Elsewhere, Pcp PCP - General Family Medicine 01/29/20 documented as of this encounter
--- OUTSIDE RECORDS SUMMARY | 2024-03-27 10:02 | XMS_ITS | Encounter Summary ---
Author Organization [facility] Address [address] [place] [address] Care Team Providers Care Ese Teacher Name Role Phone Elsewhere, Pcp Primary Care Provider Unavailabl e Reason for Referral * Outpatient (Routine) - Closed Specialty Diagnoses / Procedures Referred By Robi hong Referred To Contact Vascular Medicine Diagnoses Peripheral Arterial Disease (HCC) Wound Foot Open Subsequent Left Wound Foot Open Subsequent Right Jayjay Pak P.A.-C. 200 [place] [address] Phone: tel: fax: [facility] Referral ID Status Reason Start Date Expiration Date Visits Re quested Visits Authorized [id number] Closed 03/06/2024 09/05/2025 1 1 * Outpatient (Routine) - Closed Specialty Diagnoses / Procedures Referred By Contac t Referred To Contact Vascular Surgery Diagnoses Peripheral Arterial Disease (HCC) Jayjay Pak P.A.-C. [address] [place] [phone] Phone: tel: fax: [facility] Referral ID Status Reason Start Date Expiration Date Visits Re quested Visits Authorized [id number] Closed 03/06/2024 09/05/2025 1 1 Encounter Details Date Type Department Care Team (Late st Contact Info) Description 03/06/2024 Orders Only Department of Vascular Medicine in [place], [place] [address] [place] [address] Jayjay Pak P.A.-C. [address] [place] [address] Peripheral Arterial Disease (HCC) (Primary Dx); Wound Foot Open Subsequent Left; Wound Foot Open Subsequent Right Social History Tobacco Use Types Packs/Day Years Used Date Smoking Tobacco: Former Cigarettes 1 38.9 0 05/16/1983 - 04/2022 Smokeless Tobacco: Never Alcohol Use Standard Drinks/Week Comments Not Currently 0 (1 standard drink = 0.6 oz pur e alcohol) [facility] Utilities Answer Date Recorded In the past 12 months has e electric, gas, oil, or water [employer] threatened to shut off services in your [...] How often do you attend religion or scientology serv ices? Never 03/24/2021 Do [...] 0 10/20/2018 [facility] - Occupational Stress [...] living situation today? I have a [facility] place to live 03/11/2024 Education Answer Date Recorded What is the highest level of school you have completed or the highest degree you have received? Some college, no degree 03/24/2021 Sex and Gender Information Value Date Recorded Sex Assigned at Male 03/24/2021 8:13 PM MECHANICAL SYSTEMS ENGINEER Legal Sex Male 12:04 AM MECHANICAL SYSTEMS ENGINEER Gender Identity Male 08/31/2019 2:40 PM CDT Sexual Orientation Straight 08/31/2019 2: 40 PM CDT documented as of this encounter Plan of Treatment Upcoming Encounters Date Type Department Care Team (Latest Contact Info) Description 04/03/2024 11:30 AM MECHANICAL SYSTEMS ENGINEER Hospital Encounter Post Anesthesia Care Unit in [address] [phone] Kemar Velásquez M.B.B.S. 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 [address] [place] [phone] IR ENDOVASCULAR ANGIOPLASTY STENT LOWER EXTREMITY, right femoral access 04/04/2024 7:40 AM MECHANICAL SYSTEMS ENGINEER Hospital Encounter Post Anesthesia Care Unit in [address] [phone] Kemar Velásquez M.B.B.S. 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
--- OUTSIDE RECORDS SUMMARY | 2024-03-27 10:02 | XMS_ITS | Encounter Summary ---
Author Organization [facility] Address [address] [place] [address] Care Team Providers Care Brine Tank Tender Name Role Phone Elsewhere, Pcp Primary Care Provider Unavailabl e Reason for Visit * Reason Comments Med Refill Encounter Details Date Type Department Care Team (Late st Contact Info) Description 02/23/2024 Refill Division of Nephrology and Hypertension in [place], [place] [address] [place] [address] Onesimo Rodriguez M.D. Med Refill Social History [...] How often do you attend orthodoxy or islam serv ices? Never 03/24/2021 Do [...] Assigned at Male 03/24/2021 8:13 PM FIELD SUPPORT SPECIALIST Legal Sex Male 12:04 AM FIELD SUPPORT SPECIALIST Gender Identity Male 08/31/2019 2:40 [...] Contact Info) Description 04/03/2024 11:30 AM FIELD SUPPORT SPECIALIST Hospital Encounter Post Anesthesia Care Unit in [place], [place] [address] [place] [address] Kemar Velásquez M.B.B.S. 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 [address] [place] [phone] IR ENDOVASCULAR ANGIOPLASTY STENT LOWER EXTREMITY, right femoral access 04/04/2024 7:40 AM FIELD SUPPORT SPECIALIST Hospital Encounter Post Anesthesia Care Unit in [place], [place] [address] [place] [phone] Kemar Velásquez M.B.B.S. 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
--- OUTSIDE RECORDS SUMMARY | 2024-03-27 10:02 | XMS_ITS | Encounter Summary ---
Author Organization [facility] Address [address] [place] [address] Care Team Providers Care Scientific Editor Name Role Phone Elsewhere, Pcp Primary Care Provider Unavailabl e Encounter Details Date Type Department Care Team (Late st Contact Info) Description 08/19/2016 Historical Ophthalmology [facility] Chalo Holland Jr., M.D. [address] [place] [address] Social History Tobacco Use Types Packs/Day Years Used Date Smoking Tobacco: Every Day Sex and Gender Information Value Date Recorded Sex Assigned at Male 03/24/2021 8:13 PM REGIONAL CRA Legal Sex Male 12:04 AM REGIONAL CRA Gender Identity Male 08/31/2019 2:40 PM CDT [...] IOL OU CDM Reports - EYEGEN Id: [id number] Status: Fnl documented in this encounter Plan of Treatment Upcoming Encounters Date Type Department Care Team (Latest Contact Info) Description 04/03/2024 11:30 AM REGIONAL CRA Hospital Encounter Post Anesthesia Care Unit in [address] [phone] Kemar Velásquez M.B.B.S. 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 [address] [place] [phone] IR ENDOVASCULAR ANGIOPLASTY STENT LOWER EXTREMITY, right femoral access 04/04/2024 7:40 AM REGIONAL CRA Hospital Encounter Post Anesthesia Care Unit in [address] [phone] Kemar Velásquez M.B.B.S. 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
--- OUTSIDE RECORDS SUMMARY | 2024-03-27 10:02 | XMS_ITS | Encounter Summary ---
Author Organization [facility] Address [address] [place] [address] Care Team Providers Care Rn Oncology Name Role Phone Elsewhere, Pcp Primary Care Provider Unavailabl e Reason for Visit * Reason Comments Med Refill Encounter Details Date Type Department Care Team (Late st Contact Info) Description 01/14/2024 Refill Division of Nephrology and Hypertension in [place], [place] [address] [place] [address] Onesimo Rodriguez M.D. Med Refill Social History [...] How often do you attend lutheran or bahai serv ices? Never 03/24/2021 Do [...] Assigned at Male 03/24/2021 8:13 PM SALES TRAINING COORDINATOR Legal Sex Male 12:04 AM SALES TRAINING COORDINATOR Gender Identity Male 08/31/2019 2:40 PM CDT Sexual Orientation Straight 08/31/2019 2: 40 PM CDT documented as of this encounter Miscellaneous Notes * Telephone Encounter - Haseeb Menon Jr., D.O. - 01/19/2024 12:51 PM CDT He is on PD via [place], I care for him and he does not take these any longer. RCA documented in this encounter Plan of Treatment Upcoming Encounters Date Type Department Care Team (Latest Contact Info) Description 04/03/2024 11:30 AM SALES TRAINING COORDINATOR Hospital Encounter Post Anesthesia Care Unit in [place], [place] [address] [place] [address] Kemar Velásquez M.B.B.S. 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 [address] [place] [phone] IR ENDOVASCULAR ANGIOPLASTY STENT LOWER EXTREMITY, right femoral access 04/04/2024 7:40 AM SALES TRAINING COORDINATOR Hospital Encounter Post Anesthesia Care Unit in [place], [place] [address] [place] [phone] Kemar Velásquez M.B.B.S. 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
--- OUTSIDE RECORDS SUMMARY | 2024-03-27 10:02 | XMS_ITS | Encounter Summary ---
Author Organization [facility] Address [address] [place] [address] Care Team Providers Care Engineering Job Titles Name Role Phone Elsewhere, Pcp Primary Care Provider Unavailabl e Reason for Referral * Outpatient (Routine) - Closed Specialty Diagnoses / Procedures Referred By Robi hong Referred To Contact Diagnoses Follow Up Examination Status Post Surgery Peripheral Arterial Disease (HCC) Procedures US Aorta Iliac Arteries Bilateral with Doppler Jayjay Pak P.A.-C. [address] [place] [address] Phone: tel: fax: Health System Referral ID Status Reason Start Date Expiration Date Visits Re quested Visits Authorized [id number] Closed 01/05/2024 01/04/2025 1 1 Reason for Visit * Outpatient (Routine) - Closed Specialty Diagnoses / Procedures Referred By Robi hong Referred To Contact Diagnoses Follow Up Examination Status Post Surgery Peripheral Arterial Disease (HCC) Procedures US Aorta Iliac Arteries Bilateral with Doppler Jayjay Pak P.A.-C. 200 [place] [address] Phone: tel: fax: Health System Referral ID Status Reason Start Date Expiration Date Visits Re quested Visits Authorized [id number] Closed 01/05/2024 01/04/2025 1 1 Encounter Details Date Type Department Care Team (Latest Contact Info) Description 03/05/2024 11:19 AM CDT - 03/05/2024 11:59 PM CDT Hospital Encounter Department of Radiology, [facility], in [place], [place] [address] [place] [address] Jayjay Pak P.A.-C. [address] [place] [address] Follow Up Examination Status Post Surgery; Peripheral [...] How often do you attend shinto or jain serv ices? 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 [address] [place] [phone] IR ENDOVASCULAR ANGIOPLASTY STENT LOWER EXTREMITY, right femoral access 04/04/2024 7:40 AM MOVERS Hospital Encounter Post Anesthesia Care Unit in [address] [address] Kemar Velásquez M.B.B.S. 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 2. The previously seen [place] right external iliac artery stenosis is not [...] visualized. Diffusely elevated Doppler velocities within the [place] external iliac artery without obvious focal stenosis. [...] definitely visualized. Diffusely elevatedDoppler velocities within the [place] external iliac artery without obviousfocal stenosis. LEFT: [...] stenoses on theleft. 2. The previously seen [place] right external iliac artery stenosis is notdefinitely [...] as of this encounter Care Teams Engineering Job Titles Relationship Specialty Start Date End Date Elsewhere, Pcp PCP - General Family Medicine 01/29/20 documented as of this encounter
--- OUTSIDE RECORDS SUMMARY | 2024-03-27 10:02 | XMS_ITS | Encounter Summary ---
Author Organization [facility] Address [address] [place] [address] Care Team Providers Care Icu Tech Name Role Phone Elsewhere, Pcp Primary Care Provider Unavailabl e Reason for Visit * Outpatient (Routine) - Closed Specialty Diagnoses / Procedures Referred By Robi t Referred To Contact Diagnoses Follow Up Examination Status Post Surgery Peripheral Arterial Disease (HCC) Procedures US Lower Extremity Arteries Bilateral US Lower Extremity Artery Graft Bilateral Jayjay Pak P.AFei-CFei 200 [place] [address] Phone: tel: fax: [facility] Referral ID Status Reason Start Date Expiration Date Visits Re quested Visits Authorized [id number] Closed 01/05/2024 01/04/2025 1 1 Encounter Details Date Type Department Care Team (Latest Contact Info) Description 03/05/2024 11:00 AM CDT - 03/05/2024 11:18 AM T Hospital Encounter Department of Radiology, [facility], in [place], [place] 200 [place] [address] Jayjay Pak PFeiAFei-CFei [address] [place] [phone] Follow Up Examination Status Post Surgery; Peripheral [...] often do you attend pentecostalism or confucianist serv ices? 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/2021 8:13 PM LIGHTNING PROTECTION INSTALLER Legal Sex Male 12:04 AM LIGHTNING PROTECTION INSTALLER Gender Identity Male 08/31/2019 2:40 PM [...] CAPSULE BY MOUTH EVERY DAY FDC 01/14/2022 nortriptyline (PAMELOR) 50 mg capsule Take [...] (Latest Contact Info) Description 04/03/2024 11:30 AM LIGHTNING PROTECTION INSTALLER Hospital Encounter Post Anesthesia Care Unit in [address] [phone] Kemar Velásquez M.B.B.S. 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 [address] [place] [phone] IR ENDOVASCULAR ANGIOPLASTY STENT LOWER EXTREMITY, right femoral access 04/04/2024 7:40 AM LIGHTNING PROTECTION INSTALLER Hospital Encounter Post Anesthesia Care Unit in [address] [phone] Kemar Velásquez M.B.B.S. 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 LEFT: Unchanged stenosis of the [place] proximal superficial femoral artery. Patent mid SFA stents with new stenosis at the proximal end point. Worsening stenosis in the [place] distal SFA. Similar stenoses in the popliteal [...] femoral: Interval development of stenosis within the [place] SFA below the stents. 451 cm/s today, [...] femoral: Focally elevated Doppler velocities within the [place] distal SFA (128 cm/s today, previously 100 [...] New stenoses within thestents and in the [place] distal SFA below the stents. LEFT: Unchanged stenosis of the [place] proximal superficial femoralartery. Patent mid SFA stents with new stenosis at the proximal end point.Worsening stenosis in the [place] distal SFA. Similar stenoses in thepopliteal artery [...] documented as of this encounter Care Teams Icu Tech Relationship Specialty Start Date End Date Elsewhere, Pcp PCP - General Family Medicine 01/29/20 documented as of this encounter
--- OUTSIDE RECORDS SUMMARY | 2024-03-27 10:02 | XMS_ITS | Encounter Summary ---
Author Organization [facility] Address [address] [place] [address] Care Team Providers Care Dev Technical Mgr Name Role Phone Elsewhere, Pcp Primary Care [...] Runoff Bilat with IV Contrast Jayjay Pak, PFeiAFei-Jennifer 200 [place] [address] Phone: tel: fax: [facility] Referral ID Status Reason Start Date Expiration Date Visits Re quested Visits Authorized [id number] Closed 03/07/2024 03/07/2025 1 1 * MRI/CAT/PET Scan (Routine) - Closed Specialty Diagnoses / Procedures Referred By Contac t Referred To Contact Radiology Diagnoses Follow Up Examination Status Post Surgery Peripheral Arterial Disease (HCC) Wound Foot Open Subsequent Left Wound Foot Open Subsequent Right Procedures MR Foot Right without and with IV Contrast Jayjay Pak P.A.-Jennifer [address] [place] [address] Phone: tel: fax: [facility] Referral ID Status Reason Start Date Expiration Date Visits Re quested Visits Authorized [id number] Closed 03/07/2024 03/07/2025 1 1 * Outpatient (Routine) - Closed Specialty Diagnoses / Procedures Referred By Robi hong Referred To Contact Diagnoses Peripheral Arterial Disease (HCC) Wound Foot Open Subsequent Left Wound Foot Open Subsequent Right Procedures DX Foot Bilateral 3+ Views Jayjay Pak P.A.-C. [address] [place] [phone] Phone: tel: fax: [facility] Referral ID Status Reason Start Date Expiration Date Visits Re quested Visits Authorized [id number] Closed 03/05/2024 03/05/2025 1 1 Reason for Visit * Outpatient (Routine) - Closed Specialty Diagnoses / Procedures Referred By Robi hong Referred To Contact Vascular Medicine Jayjay Pak P.A.-C. 200 [place] [address] Phone: tel: fax: [facility] Referral ID Status Reason Start Date Expiration Date Visits Re quested Visits Authorized [id number] Closed 01/05/2024 07/06/2025 1 1 Encounter Details Date Type Department Care Team (Late st Contact Info) Description 03/05/2024 3:00 PM CDT Office Visit Department of Vascular Medicine in [place], [place] [address] [place] [phone] Jayjay Pak P.A.-C. [address] [place] [phone] Follow Up Examination Status Post Surgery (Primary [...] How often do you attend advent or adventism serv ices? 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/2021 8:13 PM COOKING SHOW HOST Legal Sex Male 12:04 AM COOKING SHOW HOST Gender Identity Male 08/31/2019 2:40 PM CDT [...] on local pathology/cytology. He is on minocycline fci. The patient has had multiple interventions for [...] on the left. 2. The previously seen [place] right external iliac artery stenosis is not definitely identified today. U/S: RIGHT: Patent superficial femoral artery stents. New stenoses within the stents and in the [place] distal SFA below the stents. LEFT: Unchanged stenosis of the [place] proximal superficial femoral artery. Patent mid SFA stents with new stenosis at the proximal end point. Worsening stenosis in the [place] distal SFA. Similar stenoses in the popliteal [...] necessary, I will discuss with the patient's physical chemistry professor since he is on dialysis and coordinate accordingly. ADDENDUM: 03/08/2024: Outside x-rays have concern over osteomyelitis on the right. I discussed the case with vascular surgery and they would like a CTA with runoff and an MRI with gadolinium. I discussed these two tests with the patient's physical chemistry professor who felt that this would be safe [...] (Latest Contact Info) Description 04/03/2024 11:30 AM COOKING SHOW HOST Hospital Encounter Post Anesthesia Care Unit in [place], [address] [phone] Kemar Velásquez M.B.B.S. 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 [address] [place] [phone] IR ENDOVASCULAR ANGIOPLASTY STENT LOWER EXTREMITY, right femoral access 04/04/2024 7:40 AM COOKING SHOW HOST Hospital Encounter Post Anesthesia Care Unit in [address] [phone] Kemar Velásquez M.B.B.S. 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
--- OUTSIDE RECORDS SUMMARY | 2024-03-27 10:02 | XMS_ITS | Encounter Summary ---
Author Organization [facility] Address [address] [place] [address] Care Team Providers Care Ingot Car Operator Name Role Phone Elsewhere, Pcp Primary Care Provider Unavailabl e Reason for Referral * Outpatient (Routine) - Closed Specialty Diagnoses / Procedures Referred By Branac t Referred To Contact Diagnoses Follow Up Examination Status Post Surgery Peripheral Arterial Disease (HCC) Procedures US Aorta Iliac Arteries Bilateral with Doppler Jayjay Pak P.A.-C. 200 [place] [address] Phone: tel: fax: [facility] Referral ID Status Reason Start Date Expiration Date Visits Re quested Visits Authorized [id number] Closed 01/05/2024 01/04/2025 1 1 * Outpatient (Routine) - Closed Specialty Diagnoses / Procedures Referred By Contac t Referred To Contact Diagnoses Follow Up Examination Status Post Surgery Peripheral Arterial Disease (HCC) Procedures ECG 12 Lead Jayjay Pak P.A.-C. 200 [place] [address] Phone: tel: fax: [facility] Referral ID Status Reason Start Date Expiration Date Visits Re quested Visits Authorized [id number] Closed 01/05/2024 01/04/2025 1 1 * Outpatient (Routine) - Closed Specialty Diagnoses / Procedures Referred By Robi hong Referred To Contact Vascular Medicine Jayjay Pak P.A.-C. [address] [place] [phone] Phone: tel: fax: [facility] Referral ID Status Reason Start Date Expiration Date Visits Re quested Visits Authorized [id number] Closed 01/05/2024 07/06/2025 1 1 Encounter Details Date Type Department Care Team (Late st Contact Info) Description 01/05/2024 Orders Only Department of Vascular Medicine in [place], [place] [address] [place] [phone] Jayjay Pak P.A.-C. [address] [place] [phone] Follow Up Examination Status Post Surgery (Primary [...] How often do you attend buddhist or anabaptist serv ices? Never 03/24/2021 Do [...] Score 0 10/20/2018 [facility] - [...] Sex Assigned at Male 03/24/2021 8:13 PM CHANNEL OPENER OUTSOLES Legal Sex Male 12:04 AM CHANNEL OPENER OUTSOLES Gender Identity Male 08/31/2019 2:40 PM CDT Sexual Orientation Straight 08/31/2019 2: 40 PM CDT documented as of this encounter Plan of Treatment Upcoming Encounters Date Type Department Care Team (Latest Contact Info) Description 04/03/2024 11:30 AM CHANNEL OPENER OUTSOLES Hospital Encounter Post Anesthesia Care Unit in [place], [place] [address] [place] [phone] Kemar Velásquez M.B.B.S. 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 [address] [place] [phone] IR ENDOVASCULAR ANGIOPLASTY STENT LOWER EXTREMITY, right femoral access 04/04/2024 7:40 AM CHANNEL OPENER OUTSOLES Hospital Encounter Post Anesthesia Care Unit in [place], [place] [address] [place] [phone] Kemar Velásquez M.B.B.S. 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 2. The previously seen [place] right external iliac artery stenosis is not [...] visualized. Diffusely elevated Doppler velocities within the [place] external iliac artery without obvious focal stenosis. [...] definitely visualized. Diffusely elevatedDoppler velocities within the [place] external iliac artery without obviousfocal stenosis. LEFT: [...] stenoses on theleft. 2. The previously seen [place] right external iliac artery stenosis is notdefinitely identified today. us Jayjay Pak P.A.-C. IMG US PROCEDURES Final Result * ECG 12 Lead (03/05/2024 11:03 AM CDT) Ventricular Rate ECG/Min 90 BPM MUSE NH Interval 152 ms MUSE QRSD Interval 122 ms MUSE QT Interval 404 ms MUSE QTC Interval 494 ms MUSE P Perkins 73 degrees MUSE R [place] -18 degrees MUSE T Wave [place] 33 degrees MUSE 03/05/2024 11:0 3 AM [...] documented as of this encounter Care Teams Ingot Car Operator Relationship Specialty Start Date End Date Elsewhere, Pcp PCP - General Family Medicine 01/29/20 documented as of this encounter
--- OUTSIDE RECORDS SUMMARY | 2024-03-27 10:02 | XMS_ITS | Encounter Summary ---
Author Organization [facility] Address [address] [place] [address] Care Team Providers Care Bore Mill Operator For Plastic Name Role Phone Elsewhere, Pcp Primary [...] with IV Contrast Jayjay Pak, P.A.-CFei [address] [place] [address] Phone: tel: fax: [facility] Referral ID Status Reason Start Date Expiration Date Visits Re quested Visits Authorized [id number] Closed 03/07/2024 03/07/2025 1 1 Reason for [...] with IV Contrast Jayjay Pak, PFeiA.-CFei [address] [place] [address] Phone: tel: fax: [facility] Referral ID Status Reason Start Date Expiration Date Visits Re quested Visits Authorized [id number] Closed 03/07/2024 03/07/2025 1 1 Encounter Details Date Type Department Care Team (Latest Contact Info) Description 03/09/2024 2:02 PM CDT - 03/09/2024 6:24 PM CDT Hospital Encounter Department of Radiology, [facility], in [place], [place] [address] [place] [address] Jayjay Pak P.A.-C. [address] [place] [address] Follow Up Examination Status Post Surgery; Peripheral [...] How often do you attend evangelical or restorationist serv ices? Never 03/24/2021 Do [...] Answer Date Recorded PHQ-2 Score 0 10/20/2018 [facility] [place] [facility] - Occupational Stress Questionnaire Answer Date [...] your living situation today? I have a [facility] place to live 10/26/2022 Education Answer Date Recorded What is the highest level of school you have completed or the highest degree you have received? Some college, no degree 03/24/2021 Sex and Gender Information Value Date Recorded Sex Assigned at Male 03/24/2021 8:13 PM NURSERY LABORER Legal Sex Male 12:04 AM NURSERY LABORER Gender Identity Male 08/31/2019 2:40 PM [...] CAPSULE BY MOUTH EVERY DAY RETIREMENT 01/14/2022 multivitamin renal failure (Dialyvite) 50-0.5 mg [...] (Latest Contact Info) Description 04/03/2024 11:30 AM NURSERY LABORER Hospital Encounter Post Anesthesia Care Unit in [address] [phone] Kemar Velásquez M.B.B.S. 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 [address] [place] [phone] IR ENDOVASCULAR ANGIOPLASTY STENT LOWER EXTREMITY, right femoral access 04/04/2024 7:40 AM NURSERY LABORER Hospital Encounter Post Anesthesia Care Unit in [address] [phone] Kemar Velásquez M.B.B.S. 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 Moderate to severe stenosis distal to the [...] in the mid left SFA (series 5, ) over short segment the level of the [...] Creatinine, POCT (03/09/2024 3:06 PM CDT) Pathologist [facility] Creatinine, POCT, B 6.4(H) 0.7 - 1.4 mg/dL 03/09/2024 3:07 PM CDT PCDT Comment: ----ADDITIONAL INFORMATION---- Performed at the Point of Care Blood 03/09/2024 3:0 6 PM CDT 03/09/2024 3:08 PM CDT us Unknown Provider LAB POCT ORDERABLES - DEVICE Fi nal Result Performing Organization Address [facility] de Phone Number [facility] [address] [place] [address], [facility] PCDT [facility] [address] [place] [address] * (ABNORMAL) Creatinine, POCT (03/09/2024 3:06 PM CDT) [facility] Estimated GFR (eGFR), POCT <15(L) >=60 mL/min/BSA 03/09/2024 3:08 PM CDT PCMO Comment: Estimated GFR calculated using the 2020 CKD_EPI creatinine equation. Blood 03/09/2024 3:06 PM CDT 03/09/2024 3:08 PM CDT us Unknown Provider LAB POCT ORDERABLES - DEVICE Fi nal Result Performing Organization Address [facility] Co de Phone Number [facility] RELIGI[facility] OUTPATIENT [facility] [address] [place] [address], [facility] PCMO [facility] 200 [place] [address] documented in this encounter Visit Diagnoses Diagnosis [...] documented as of this encounter Care Teams Bore Mill Operator For Plastic Relationship Specialty Start Date End Date Elsewhere, Pcp PCP - General Family Medicine 01/29/20 documented as of this encounter
--- OUTSIDE RECORDS SUMMARY | 2024-03-27 10:02 | XMS_ITS | Encounter Summary ---
Author Organization [facility] Address [address] [place] [address] Care Team Providers Care Speech And Language Clinician Name Role Phone Elsewhere, Pcp Primary Care Provider Unavailabl e Reason for Referral * Outpatient (Routine) - Closed Specialty Diagnoses / Procedures Referred By Contac t Referred To Contact Diagnoses Peripheral Arterial Disease (HCC) Wound Foot Open Subsequent Left Wound Foot Open Subsequent Right Procedures DX Foot Bilateral 3+ Views Jayjay Pak, PFeiA.-CFei [address] [place] [address] Phone: tel: fax: [facility] Region Referral ID Status Reason Start Date Expiration Date Visits Re quested Visits Authorized [id number] Closed 03/05/2024 03/05/2025 1 1 Reason for Visit * Outpatient (Routine) - Closed Specialty Diagnoses / Procedures Referred By Contac t Referred To Contact Diagnoses Peripheral Arterial Disease (HCC) Wound Foot Open Subsequent Left Wound Foot Open Subsequent Right Procedures DX Foot Bilateral 3+ Views Jayjay Pak, P.A.-CFei [address] [place] [address] Phone: tel: fax: [facility] Region Referral ID Status Reason Start Date Expiration Date Visits Re quested Visits Authorized [id number] Closed 03/05/2024 03/05/2025 1 1 Encounter Details Date Type Department Care Team (Latest Contact Info) Description 03/07/2024 10:12 AM CDT - 03/07/2024 11:59 PM CDT Hospital Encounter Department of Radiology in [place], [place] [address] [place] [address] Jayjay Pak P.A.-C. [address] [place] [address] Peripheral Arterial Disease (HCC); Wound Foot Open [...] How often do you attend anabaptist or taoism serv ices? Never 03/24/2021 Do [...] 10/20/2018 [facility] [...] your living situation today? I have a [facility] place to live 10/26/2022 Education Answer Date Recorded What is the highest level of school you have completed or the highest degree you have received? 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 [address] [place] [phone] IR ENDOVASCULAR ANGIOPLASTY STENT LOWER EXTREMITY, right femoral access 04/04/2024 7:40 AM VOCATIONAL ED INSTRUCTOR Hospital Encounter Post Anesthesia Care Unit in [address] [address] Kemar Velásquez M.B.B.S. 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
== END 2024-03-27 09:57 | disposition home or self-care (01) ==
LOC: WOUND 09:57
PROVIDERS: PCP Family Medicine; Visit Provider Family Medicine
DX: E11.621 Type 2 diabetes mellitus with foot ulcer (principal); I73.9 Peripheral vascular disease, unspecified; L97.512 Non-pressure chronic ulcer of other part of right foot with fat layer exposed; E11.22 Type 2 diabetes mellitus with diabetic chronic kidney disease; N18.5 Chronic kidney disease, stage 5; Z99.2 Dependence on renal dialysis
CPT/HCPCS: 11042

== ENCOUNTER 2024-04-10 09:56 | Outpatient (CLI) | payer MEDICARE, BC, SELFPAY | END 2024-04-10 09:57 | disposition home or self-care (01) | LOC: WOUND 09:56 | PROVIDERS: PCP Family Medicine; Visit Provider Nurse Practitioner Family | DX: E11.621 Type 2 diabetes mellitus with foot ulcer (principal); L97.518 Non-pressure chronic ulcer of other part of right foot with other specified severity; I73.9 Peripheral vascular disease, unspecified; I89.0 Lymphedema, not elsewhere classified | CPT/HCPCS: 11042; 87070; 87186; G0463 ==

== ENCOUNTER 2024-04-17 10:06 | Outpatient (CLI) | payer MEDICARE, BC, SELFPAY | END 2024-04-17 10:07 | disposition home or self-care (01) | LOC: WOUND 10:06 | PROVIDERS: PCP Family Medicine; Visit Provider Nurse Practitioner Family | DX: E11.621 Type 2 diabetes mellitus with foot ulcer (principal); L97.518 Non-pressure chronic ulcer of other part of right foot with other specified severity; E11.22 Type 2 diabetes mellitus with diabetic chronic kidney disease; N18.5 Chronic kidney disease, stage 5; Z99.2 Dependence on renal dialysis; Z96.41 Presence of insulin pump (external) (internal) | CPT/HCPCS: 11042 ==

== ENCOUNTER 2024-04-24 09:57 | Outpatient (CLI) | payer MEDICARE, BC, SELFPAY ==
--- OUTSIDE RECORDS SUMMARY | 2024-04-24 10:00 | XMS_ITS | Clinical Summary ---
Author Organization [facility] Address [place], [place] [address] Care Team Providers Care Bill Poster Installer Name Role Phone Casa Lucia MD Unavailable Unavailable Rudy Riddle MD Unavailable [phone] Rudy Riddle MD Primary Care Provider + Allergies Active Allergy Reactions Criticality Noted Date Comments Gabapentin Other - Describe In Comment Field Medium 08/04/2020 Dizzy, memory issue Dizzy, memory issue Morphine Itching 02/04/2010 After 3 days of use Pregabalin Anaphylaxis,Itching High 02/16/2017 swell swell Guyutio-Ebf-Ugh Reductase Inhibitors Myalgia 02/13/2014 Medications atorvastatin (LIPITOR) 20 mg tablet Take 20 mg by mouth at bedtime. 10/16/19 20 Active doxepin 25 mg capsule Take 50 mg by mouth at bedtime. 10/01/19 20 Active VITAMIN D2 1,250 mcg (50,000 unit) capsule Take 50,000 Units by mouth once weekly. 09/27/19 20 Active nortriptyline 50 mg capsule TAKE TWO CAPSULES BY MOUTH AT BEDTIME 10/16/19 20 Active pramipexole (MIRAPEX) 1 mg tablet Take 1 mg by mouth at bedtime. 10/17/19 20 Active amLODIPine (NORVASC) 5 mg tablet Take [...] (ROXICODONE) 5 mg immediate release tabletIndication s:Acute exacerbation of chronic low back pain,Chronic back pain, unspecified back location, unspecified back pain laterality Take 5-10mg 4x/day by mouth as needed (at least 4 hrs between doses). Refills from PCP. 1 Tablet 05/13/20 22 Active acetaminophen (TYLENOL EXTRA STRGTH) 500 mg tabletIndication s:Acute exacerbation of chronic low back pain,Chronic back pain, unspecified back location, unspecified back pain laterality Take 2 Tablets (1,000 mg) by mouth four times daily. At least 4hrs between doses. Max acetaminophen dose: 4000mg in 24 hrs. 0 05/13/20 Active methocarbamoL (ROBAXIN) 750 mg tabletIndication s:Acute exacerbation of chronic low back pain,Chronic back pain, unspecified back location, unspecified back pain laterality,Muscl e spasm Take 1 Tablet (750 mg) by mouth every 6 hours if needed for Muscle Spasm. 30 Tablet 05/13/2022 1:01 PM ARCH CUSHION SKIVING MACHINE OPERATOR 05/13/20 22 Active sennosides-docus ate (SENOKOT S) (8.6-50 mg) tabletIndication s:constipation Take 1-4 Tablets by mouth 2 times [...] Hold for loose stools. 50 Tablet 05/13/2022 1:01 PM ARCH CUSHION SKIVING MACHINE OPERATOR 05/13/20 22 Active lisinopriL (PRINIVIL; ZESTRIL) 40 mg tabletIndication s:Proteinuria, unspecified type Take 1 Tablet (40 mg) by mouth once daily. 05/14: DO NOT TAKE UNTIL FOLLOW UP WITH PRIMARY CARE DOCTOR. 0 05/14/20 22 Active aspirin chewable 81 mg chewable tabletIndication s:Peripheral arterial disease (HC) Chew 1 Tablet (81 mg) by mouth once daily with a meal. 90 Tablet 05/14/2022 11:03 AM ARCH CUSHION SKIVING MACHINE OPERATOR 05/15/20 22 Active DULoxetine (CYMBALTA) 30 mg Delayed-release capsuleIndicatio ns:Major depressive disorder, single episode, in remission (HC) Take 1 Capsule (30 mg) by mouth once daily. 90 Capsule 05/14/2022 11:03 AM ARCH CUSHION SKIVING MACHINE OPERATOR 05/14/20 22 Active furosemide (LASIX) 40 mg tabletIndication s:Lower extremity edema Take 40 mg by mouth every morning. 0 05/14/20 22 Active omeprazole (PRILOSEC) 40 mg Delayed-Release capsule Take 40 mg by mouth once daily before a meal. Active oxyCODONE (OXYCONTIN) 20 mg SUSTAINED release tablet Take 20 mg by mouth every 12 hours. Active ampicillin (OMNIPEN-N) 1 gram injectionIndicat ions:Bacteremia due to Enterococcus,Epi dural abscess Inject 2 g intravenous every 6 hours. 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 Not on file Not on file Obstetrics History Last Filed Vital Signs Vital Sign Reading Time Taken Comments Blood Pressure 162/87 07/21/2022 9:21 PM ARCH CUSHION SKIVING MACHINE OPERATOR Pulse 100 07/21/2022 9:21 PM ARCH CUSHION SKIVING MACHINE OPERATOR Temperature 37.1 C (98.8 F) 07/21/2022 8:51 PM ARCH CUSHION SKIVING MACHINE OPERATOR Respiratory Rate 18 07/21/2022 8:51 PM ARCH CUSHION SKIVING MACHINE OPERATOR Oxygen Saturation 96% 07/21/2022 9:21 PM ARCH CUSHION SKIVING MACHINE OPERATOR Inhaled Oxygen Concentration - - Weight 83.9 kg (185 lb) 07/21/2022 5:35 PM ARCH CUSHION SKIVING MACHINE OPERATOR Height 175.3 cm (5' 9) 07/21/2022 5:35 PM ARCH CUSHION SKIVING MACHINE OPERATOR Body Mass Index 27.32 07/21/2022 5:35 PM ARCH CUSHION SKIVING MACHINE OPERATOR Plan of Treatment Health Maintenance Due Date Last Done Comments Hepatitis C screening for ag e 18-79 01/30/1970 RSV vaccine for adults or (1 - Risk 60-74 years 1-dose series) 2012 Zoster (shingles) series for age 50+ (2 [...] age 75 05/12/203205/12, 02/04/2006 (Completed outside of [facility]) Tdap Completed 08/16/2016 Pneumococcal series for age 65+ Completed 04/24/2018, 04/11/2017, 02/14/2012, Additional history exists Goals Goal Patient Goal Type Associated Problems Recent Progress Patient-Stated? Author BLOOD PRESSURE - MAINTAINS BP less than 140/90 Blood Pressure Rudy Orozco MD Procedures Procedure Name Priority Date/Time Associated Diagnosis Comments COLONOSCOPY 05/12/2022 8:51 AM ARCH CUSHION SKIVING MACHINE OPERATOR LIPID PANEL W REFLEX MEASURED LDL Routine 02/16/2016 8:59 AM CDT Hyperlipidemia, unspecified hyperlipidemia type from Last 3 Months or Most Recently Relevant to Health Maintenance Results * COLONOSCOPY (05/12/2022 8:51 AM ARCH CUSHION SKIVING MACHINE OPERATOR) 05/12/2022 8:51 AM ARCH CUSHION SKIVING MACHINE OPERATOR Narrative Transcriptions Lukas West MD - 05/12/2022 9:03 AM [facility] Patient Name: Onesimo Walton Procedure Date: 05/12/2022 Gender: Male Date of : 1950 Admit Type: Inpatient Procedure: Colonoscopy Proceduralist: Lukas West MD [facility] ID Indications/Pre-Op Diagnosis: Anemia. Bacteremia Medications: Monitored Anesthesia Care Procedure Description: The patient had risks, benefits and alternatives explained to andgave informed consent. The patient had a stable cardiopulmonary status and judged an adequate candidate for conscious sedation. The [facility]-[id number] endoscope was passed through the anus and [...] Furthermanagement is per the primary team. Call [facility] back if any questions orconcerns. Lukas West MD 05/12/2022 9:03:39 AM This report has been signed electronically. Note Initiated On: 05/12/2022 8:51 AM us Lukas West MD PROCEDURE ORD Final Result * (ABNORMAL) LIPID PANEL W REFLEX MEASURED [...] PATIENT STATUS FASTING 02/16/2016 11:02 AM CDT [facility] Blood BLOOD SPECIMEN / Unknown Venipuncture / Unknown 02/16/2016 8:59 AM CDT 02/16/2016 8:59 AM CDT us Rudy Riddle MD CHEMISTRY Final Re sult [facility] [address] [place] [address] [facility] [address] [place] [address], [place] [phone] from Last 3 Months or Most Recently Relevant to Health Maintenance Insurance [employer] [place] [address] MEDICARE PART B HB ONLY [employer] ONLY MEDICARE PART A HB ONLY MEDICARE PPS [employer] [place] [place] [address] WORKERS COMP WORKERS COMP Advance Directives * Full Code (Latest Code [...] Preferences, Provider to review later Care Teams Bill Poster Installer Relationship Specialty Start Date End Date Rudy Riddle MD [address] [place] [address] PCP - General Family Practice 05/25/22 Casa Lucia MD [address] [facility] [address] [place] [address] Ophthalmology Ophthalmology Surgery 12/22/11 Rudy Riddle MD [address] [place] [address] Family Practice 05/07/22
--- OUTSIDE RECORDS SUMMARY | 2024-04-24 10:01 | XMS_ITS | Encounter Summary ---
Author Organization [facility] Address [address] [place] [address] Care Team Providers Care Bag Bleacher Name Role Phone Elsewhere, Pcp Primary Care Provider Unavailabl e Encounter Details Date Type Department Care Team (Late st Contact Info) Description 04/10/2024 Orders Only Division of Nephrology and Hypertension in [place], [place] [address] [place] [address] Haseeb Menon Jr., D.O. [address] [place] [address] Social History Tobacco Use Types Packs/Day Years Used Date Smoking Tobacco: Former Cigarettes 1 38.9 0 05/16/1983 - 04/2022 Smokeless Tobacco: Never Alcohol Use Standard Drinks/Week Comments Not Currently 0 (1 standard drink = 0.6 oz pur e alcohol) [facility] Utilities Answer Date Recorded In the past 12 months has [facility] reQall gas, oil, or water [place] threatened to shut off services in your home? No 04/04/2024 Humiliation, Afraid, Rape, and Kick questionnair e Answer Date Recorded Within the last year, have y ou been afraid of your partner or ex-partner? No 04/04/2024 Within the last year, have y ou been humiliated or emotionally abused in other ways by your partner or ex-partner? No Within the last year, have y ou been kicked, hit, slapped, or otherwise physically hurt by your partner or ex-partner? No 04/04/2024 Within the last year, have y ou been raped or forced to have any kind of sexual activity by your partner or ex-partner? No 04/04/2024 Social Connection and Isolation Panel [NHANES] A [...] the money to buy more. Never true 04/04/20 24 Within the past 12 months, t he food you bought just didn't last and you didn't have money to get more. Never true 04/04/2024 PRAPARE - Transportation Answer Date Re corded In the past 12 months, has l ack of transportation kept you from medical appointments or from getting medications? No 03/17 In the past 12 months, has l ack of transportation kept you from meetings, work, or from getting things needed for daily living? No 04/04/2024 Nutrition Answer Date Recorded On average, how [...] living situation today? I have a [facility] place to live 04/04/2024 Education Answer Date Recorded What is the highest level of school you have completed or the highest degree you have received? Some college, no degree 03/24/2021 Sex and Gender Information Value Date Recorded Sex Assigned at Male 03/24/2021 8:13 PM BUILDING ESTIMATOR Legal Sex Male 12:04 AM BUILDING ESTIMATOR Gender Identity Male 08/31/2019 2:40 PM CDT Sexual Orientation Straight 08/31/2019 2: 40 PM CDT documented as of this encounter Plan of Treatment Upcoming Encounters Date Type Department Care Team (Late st Contact Info) Description 05/10/2024 8:30 AM BUILDING ESTIMATOR Appointment Department of Radiology, [facility], in [place], [place] [address] [place] [address] Kemar Velásquez M.B.B.S. [address] [place] [address] Discharge Disposition: Home or Self Care 05/10/2024 9:30 AM BUILDING ESTIMATOR Appointment Department of Vascular Medicine in [place], [place] [address] [place] [address] Kemar Velásquez M.B.B.S. [address] [place] [address] documented as of this encounter Visit Diagnoses Not on filedocumented in this encounter Additional Health Concerns Assessment Noted Time PHQ-9 Depression Total Score: 3 01/04/20 18 10:38 AM CDT documented as of this encounter Care Teams Bag Bleacher Relationship Specialty Start Date End Date Elsewhere, Pcp PCP - General Family Medicine 01/29/20 documented as of this encounter
--- OUTSIDE RECORDS SUMMARY | 2024-04-24 10:01 | XMS_ITS ---
Author Organization [facility] Address [address] [place] [address] Care Team Providers Care Cleaning Maid Name Role Phone Unavailable Unavailable Unavailable Surgery Details Not on file Complications Check Surgery Details section. Procedure Estimated Blood Loss Check Surgery Details section. Procedure Findings Check Surgery Details section. Procedure Specimens Taken Check Surgery Details section.
--- OUTSIDE RECORDS SUMMARY | 2024-04-24 10:01 | XMS_ITS | Referral Summary ---
Author Organization [facility] Address [address] [place] [id number] Care Team Providers Care Insurance Commissioner Name Role Phone Elsewhere, Pcp Primary Care Provider Unavailabl e Source Comments Patient records contain information from all sites at [facility]. For routine questions regarding patient records, call [phone] during business hours, M-F 8:00 AM - 5:00 PM Central Time. Record requests for emergency care only can be directed to [phone] at any time.[facility] Encounters Date Type Department Care Team Description 04/10/2024 Orders Only Division of Nephrology and Hypertension in [place], [place] [address] [place] [phone] Haseeb Menon Jr., D.O. 04/06/2024 Orders Only Division of Vascular and Endovascular Surgery in [place], [place] [address] [place] [phone] Rose Lagos APRN, C.N.P. 04/06/2024 Clinical Communication Division of Vascular and Endovascular Surgery in [place], [place] [address] [place] [phone] Kemar Velásquez M.B.B.S. Post surgery Plavix prescription 04/04/2024 Clinical Communication Division of Vascular and Endovascular Surgery in [place], [place] [address] [place] [phone] Kemar Velásquez M.B.B.S. Post Hospital Follow-up 04/04/2024 7:46 AM SPINNER FIXER Anesthesia Event [facility] OR [address] [place] [phone] Yon Burnett M.D. 04/04/2024 7:15 AM SPINNER FIXER - 04/04/2024 10:59 AM SPINNER FIXER Surgery [facility] MA[facility] OR [address] [place] [phone] Kemar Velásquez M.B.B.S. IR ENDOVASCULAR ANGIOPLASTY, DCB LOWER EXTREMITY, left femoral access. 04/03/2024 10:41 AM SPINNER FIXER - 04/04/2024 6:07 PM SPINNER FIXER Hospital Encounter [facility], [facility], [facility], Eighth Floor [address] [place] [phone] Kemar Velásquez M.B.B.S. 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 04/03/2024 12:30 PM SPINNER FIXER - 04/03/2024 4:14 PM SPINNER FIXER Surgery [facility] OR [address] [place] [phone] Kemar Velásquez M.B.B.S. IR ENDOVASCULAR ANGIOPLASTY STENT LOWER EXTREMITY, right femoral access. 03/20/2024 Clinical Communication Division of Vascular and Endovascular Surgery in [place], [place] [address] [place] [phone] Kemar Velásquez M.B.B.S. 03/13/2024 Documentation Division of Nephrology and Hypertension in [place], [place] [address] [place] [phone] Haseeb Menon Jr., D.OFei 03/13/2024 Orders Only Division of Nephrology and Hypertension in [place], [place] [address] [place] [phone] Haseeb Menon Jr., Kylah.OFei 03/12/2024 7:10 AM CDT Ancillary Procedure Department of Vascular 03/12/2024 7:05 AM CDT Ancillary Procedure Department of Vascular 03/12/2024 7:00 AM CDT Ancillary Procedure Department of Vascular 03/12/2024 6:15 AM CDT Ancillary Procedure Department of Vascular 03/12/2024 6:10 AM CDT Ancillary Procedure Department of Vascular 03/12/2024 8:00 AM CDT Comprehensive Visit Department of Vascular Medicine in [place], [place] [address] [place] [phone] Kimmy Buckner APRN, C.N.P., D.N.P. 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) 03/09/2024 6:25 PM CDT - 03/09/2024 11:59 PM CDT Hospital Encounter Department of Radiology, [place], [place] [address] [place] [phone] Jayjay Pak P.A.-CFei Follow Up Examination Status Post Surgery; Peripheral Arterial Disease (HCC); Wound Foot Open Subsequent Left; Wound Foot Open Subsequent Right Discharge Disposition: Home or Self Care 03/09/2024 2:02 PM CDT - 03/09/2024 6:24 PM CDT Hospital Encounter Department of Radiology, [facility] in [place], [place] [address] [place] [phone] Jayjay Pak P.A.-CFei Follow Up Examination Status Post Surgery; Peripheral Arterial Disease (HCC); Wound Foot Open Subsequent Left; Wound Foot Open Subsequent Right Discharge Disposition: Home or Self Care 03/07/2024 Orders Only Department of Vascular Medicine in [place], [place] [address] [place] [address] Jayjay Pak P.A.-C. 03/07/2024 10:12 AM CDT - 03/07/2024 11:59 PM CDT Hospital Encounter Department of Radiology in [place], [place] [address] [place] [phone] Jayjay Pak P.A.-C. Peripheral Arterial Disease (HCC); Wound Foot Open Subsequent Left; Wound Foot Open Subsequent Right Discharge Disposition: Home or Self Care 03/06/2024 Orders Only Department of Vascular Medicine in [place], [place] [address] [place] [address] Jayjay Pak P.A.-C. Peripheral Arterial Disease (HCC) (Primary Dx); Wound Foot Open Subsequent Left; Wound Foot Open Subsequent Right 03/05/2024 11:19 AM CDT - 03/05/2024 11:59 PM CDT Hospital Encounter Department of Radiology, [place], [place] [address] [place] [address] Jayjay Pak P.A.-Jennifer Follow Up Examination Status Post Surgery; Peripheral Arterial Disease (HCC) Discharge Disposition: Home or Self Care 03/05/2024 7:30 AM CDT - 03/05/2024 10:59 AM CDT Hospital Encounter Department of Vascular Medicine in [place], [place] [address] [place] [phone] Jayjay Pak P.A.-Jennifer Follow Up Examination Status Post Surgery; Peripheral Arterial Disease (HCC) Discharge Disposition: Home or Self Care 03/05/2024 11:00 AM CDT - 03/05/2024 11:18 AM CDT Hospital Encounter Department of Radiology, [facility], in [place], [place] [address] [place] [address] Jayjay Pak P.AFei-Jennifer Follow Up Examination Status Post Surgery; Peripheral Arterial Disease (HCC) Discharge Disposition: Home or Self Care 03/05/2024 3:00 PM CDT Office Visit Department of Vascular Medicine in [place], [place] [address] [place] [address] Jayjay Pak P.A.-C. Follow Up Examination Status Post Surgery (Primary Dx); Peripheral Arterial Disease (HCC); Wound Foot Open Subsequent Left; Wound Foot Open Subsequent Right 02/23/2024 Refill Division of Nephrology and Hypertension in [place], [place] [address] [place] [phone] Onesimo Rodriguez M.D. Med Refill 02/11/2024 Refill Division of Nephrology and Hypertension in [place], [place] [address] [place] [address] Haseeb Menon Jr., D.O. Med Refill from Last 3 Months Allergies Active Allergy Reactions Criticality Noted Date Comments Gabapentin Other (see comments) Medium 08/04/2020 Dizzy, memory issue Morphine Itching,Rash Medium 02/14/2012 itchy Pregabalin Anaphylaxis High 02/16/2017 swell Qrehzeu-Ogu-Fzl Reductase Inhibitors Myalgia Low 02/13/2014 Medications DULoxetine (Cymbalta) [address] capsule Take 30 mg by mouth daily. 08/17/19 17 Active nortriptyline (PAMELOR) 50 mg capsule Take 100 mg by mouth at bedtime. 5 12/07/19 18 Active ferrous sulfate 325 mg (65 mg iron) tablet Take 325 mg by mouth daily. Patient takes 65 mg of elemental iron(325 mg ferrous sulfate) daily Active pramipexole (Mirapex) 1 mg tablet Take 1 mg by mouth 2 (two) times a day. 1 mg at 3pm and 1 mg between 9 and 10 pm daily. Active acetaminophen (TYLENOL) 500 mg tablet Take 2 tablets (1,000 mg total) by mouth every 8 (eight) hours as needed (neuropathy) . 03/25/20 21 Active minocycline (MINOCIN,DYNACI N) 100 mg capsule Take 100 mg by mouth daily. 01/15/20 22 Active allopurinoL (ZYLOPRIM) 100 mg tablet Take 100 mg by mouth daily. Active aspirin [address] tablet Take 81 mg by mouth daily. Active ergocalciferol (Vitamin D2) 50,000 Unit capsule Take 50,000 Units by mouth once a week. Once per week on Tuesday. Active oxyCODONE (ROXICODONE) 5 mg immediate release tabletIndicatio ns:Acute Pain Exception Take 1 tablet (5 mg total) by mouth every 6 (six) hours as needed for severe pain or score 7-10 of 10 Indication: Acute Pain Exception. for pain 6 tablet 02/17/20 23 Active blood-glucose sensor device 11/26/19 22 Active UNABLE TO FIND Inject 1 each under the skin continuously . Insulin aspart pump. Active calcium acetate,phospha t bind, (PHOSLO) 667 [...] Take 20 mg by mouth at bedtime. 03/02/20 23 Active blood-glucose meter,continuou s by other route. 05/17/19 24 Active blood-glucose [...] 950 mg (200 mg calcium) tablet Take 800 mg of calcium by mouth at bedtime. Active sodium bicarbonate 650 mg tablet Take 650 mg by mouth 2 (two) times a day. Active sennosides (Senokot) 8.6 mg tablet Take 8.6 mg by mouth at bedtime. Active rOPINIRole (Requip) 1 mg tablet Take 1 mg by mouth at bedtime. Active carvediloL (Coreg) 25 mg tablet Take 0.5 tablets (12.5 mg total) by mouth 2 (two) times a day with meals. 90 tablet 3 04/04/20 24 025 Active furosemide (Lasix) 80 mg tablet Take 2 tablets (160 mg total) by mouth 2 (two) times a day. 160 mg in the morning and 160 mg at 2pm daily. 04/04/20 Active omeprazole (PriLOSEC) [address] capsule Take 1 capsule (40 mg total) by mouth as directed. DO NOT TAKE WHILE ON PLAVIX (Clopidogrel ) 04/04/20 Active pantoprazole (Protonix) 40 mg EC tablet Take 1 tablet (40 mg total) by mouth daily before morning meal. Take while on Plavix (Clopidogrel ) 90 tablet 04/04/20 24 025 Active clopidogreL (Plavix) 75 mg tablet Take 1 tablet (75 mg total) by mouth daily. For 3 months. 90 tablet 04/06/20 24 025 Active omeprazole (PriLOSEC) [address] capsule Take 40 mg by mouth every evening. 09/25/19 16 024 Discontinued furosemide (LASIX) 80 mg tablet Take 2 tablets (160 mg total) by mouth 2 (two) times a day. 360 tablet 3 04/26/20 23 024 Discontinued carvediloL (Coreg) 25 mg tablet Take 2 tablets (50 mg total) by mouth 2 (two) times a day with meals. 360 tablet 3 03/13/20 24 024 Discontinued clopidogreL (Plavix) 75 mg tablet Take 1 tablet (75 mg total) by mouth daily. 04/04/20 24 024 Discontinued(Re order) Active Problems Patient Care Coordination No te Formatting of this note migh t be different from the original. Spouse: Siria Children: Maria M Deluca, Paty, Pat, 13 grand babies Work: no Problem Noted Date Diagnosed Date Wound Foot Open Subsequent Right 04/04/2024 Atherosclerosis Arterioscler osis Obliterans Leg With Ulcer [...] 04/21/2018 Restless Leg Syndrome 01/12/2018 Atherosclerosis Of [place] Ar teries Of Extremities With Intermittent Claudication Right Leg 08/08/2017 Hyperlipidemia 07/22/2017 Ulcer Leg Left 04/19/2017 Ulcer Toe Left 04/19/2017 Atherosclerosis Of [place] Ar teries Of Left Leg With Ulceration [...] oz pur e alcohol) [facility] [employer] Answer Date Recorded In the past 12 months has e panpan, gas, oil, or water Schedule [employer] threatened to shut off services in your [...] How often do you attend spiritism or voodoo serv ices? Never 03/24/2021 Do [...] PHQ-2 Score 0 10/20/2018 [facility] - Occupational Stress Questionnaire Answer Date [...] your living situation today? I have a [facility] place to live 04/04/2024 Education Answer Date Recorded What is the highest level of school you have completed or the highest degree you have received? Some college, no degree 03/24/2021 Sex and Gender Information Value Date Recorded Sex Assigned at Male 03/24/2021 8:13 PM SPINNER FIXER Legal Sex Male 12:04 AM SPINNER FIXER Gender Identity Male 08/31/2019 2:40 PM CDT Sexual Orientation Straight 08/31/2019 2: 40 PM CDT Last Filed Vital Signs Vital Sign Reading Time Taken Comments Blood Pressure 175/57 04/04/2024 5:18 PM SPINNER FIXER Pulse 79 04/04/2024 4:30 PM SPINNER FIXER Temperature 36.6 C (97.9 F) 04/04/2024 4:30 PM SPINNER FIXER Respiratory Rate 19 04/04/2024 4:30 PM SPINNER FIXER Oxygen Saturation 97% 04/04/2024 4:30 PM SPINNER FIXER Inhaled Oxygen Concentration - - Weight 87.1 kg (192 lb) 04/03/2024 11:11 AM SPINNER FIXER Height 175.3 cm (5' 9) 04/03/2024 11:11 AM SPINNER FIXER Body Mass Index 28.35 04/03/2024 11:11 AM SPINNER FIXER Plan of Treatment Upcoming Encounters Date Type Department Care Team (Late st Contact Info) Description 05/10/2024 8:30 AM SPINNER FIXER Appointment Department of Radiology, [facility], in [place], [place] 200 [place] [address] Kemar Velásquez M.B.B.S. [address] [place] [phone] Discharge Disposition: Home or Self Care 05/10/2024 9:30 AM SPINNER FIXER Appointment Department of Vascular Medicine in [place], [place] 200 [place] [address] Kemar Velásquez M.B.B.S. [address] [place] [phone] Medical Devices Implanted Type Area Program Dir Device Identifier Shelf Expiration Date Model / Serial / Lot Patch Vasc Bovine.08cm X 8cm - Flores [id number] Implanted:Qty: 1 on 04/04/2017 Mesh or Patch Other/Legacy - See Implant Description Synovis Description:Device Manufactu rer - Synovis. Body Location - Other. Vascular. Device Status Text - [id number]. Ocular Lens-10/29/2007 Implanted:10/28 by Nato Dougherty, JULIÁN, C.N.P., R.N. (Quantity not on file) Ocular Lens Bilateral: Eye Description:Cataract extract ion and insertion of intraocular lens 06/22/2016 09:27 - [employer] [facility] APPRAISER bilateral Conversions - Default Historical Implant [...] 6mm X 29mm X 135cm - Flores [id number] Implanted:Qty: 1 on 03/04/2017 Vascular Graft [place] Description:Device Manufactu Cliqset - [place] [employer]. Device Status Text - [id number]. Stent Vbx [id number] - Flores [id number] Implanted:Qty: 1 on 03/04/2017 Vascular Graft Other/Legacy - See Implant Description [place] Description:Device Manufactu rer - [employer] [place] [employer] Body Location - Other. n/a. Device Status Text - [id number]. Stent Vbx [id number] - Flores [id number] Implanted:Qty: 1 on 03/04/2017 Vascular Graft Other/Legacy - See Implant Description [place] Description:Device Manufactu rer - [employer] [place] [employer] Body Location - Other. n/a. Device Status Text - [id number]. Stent Zilver Ptx 6mm X 40mm - Flores [id number] Implanted:Qty: 1 on 04/04/2017 Vascular Stent Other/Legacy - See Implant Description [facility] Description:Device Manufactu rer - [employer]. Body Location - Other. Left. Device Status Text - [id number]. Stent Zilver Ptx 6mm X 60mm - Flores [id number] Implanted:Qty: 1 on 04/04/2017 Vascular Stent Other/Legacy - See Implant Description [place] Description:Device Manufactu rer - [employer]. Body Location - Other. Left. Device Status Text - [id number]. Stent Zilver Ptx 6mm X 80mm - [place] [id number] Implanted:Qty: 1 on 08/31/2017 Vascular Stent Right: Other/Legacy - See Implant Description [place] / [id number] / Description:Device Manufactu rer - [employer]. Body Location - Right. Device Status Text - [id number]. Stent Zilver Ptx 6mm X 40mm - Flores [id number] Implanted:Qty: 1 on 08/31/2017 Vascular Stent Right: Other/Legacy - See Implant Description [place] / [id number] / Description:Device Manufactu Cliqset - [place]. Body Location - Right. Device Status Text - [id number]. Stnt Innova Otw [id number] - [id number] Implanted:Qty: 1 on 04/18/2018 by Kemar Velásquez M.B.B.S. at [facility] Vascular Stent [employer] 05/23/2020 [id number] / / [id number] Stnt Innova Otw [id number] - [id number] Implanted:Qty: 1 on 05/11/2019 by Kemar Velásquez M.B.B.S. 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) ACT, POCT, B Routine 04/04/2024 8:47 AM SPINNER FIXER ANGIOPLASTY/STENT ENDOVASCULAR FEMORAL AND/OR POPLITEAL AND/OR TIBIAL ARTERY 04/04/2024 7:16 AM SPINNER FIXER Peripheral Arterial Disease (HCC) 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) TROPONIN T, 5TH GEN, P Timed 04/04/2024 4:22 AM SPINNER FIXER BASIC METABOLIC PANEL, S/P Timed 04/04/2024 4:22 AM SPINNER FIXER CBC WITHOUT DIFFERENTIAL, B Timed 04/04/2024 4:22 AM SPINNER FIXER TROPONIN T, 6H, 5TH GEN, P Timed 04/04/2024 12:10 AM SPINNER FIXER TROPONIN T, 2H/6H REFLEX, 5TH GEN, P Timed 04/03/2024 8:18 PM SPINNER FIXER ADULT OXYGEN THERAPY Routine 04/03/2024 6:43 PM SPINNER FIXER ADULT OXYGEN THERAPY Routine 04/03/2024 6:43 PM SPINNER FIXER TROPONIN T, BASELINE, 5TH GEN, P STAT 04/03/2024 6:04 PM SPINNER FIXER PHOSPHORUS (INORGANIC), S STAT 04/03/2024 6:04 PM SPINNER FIXER MAGNESIUM, S STAT 04/03/2024 6:04 PM SPINNER FIXER BASIC METABOLIC PANEL, S/P STAT 04/03/2024 6:04 PM SPINNER FIXER CBC WITH DIFFERENTIAL, B STAT 04/03/2024 6:04 PM SPINNER FIXER IR IMAGING RAD - Routine (most inpatients and all outpatients) 04/03/2024 5:17 PM SPINNER FIXER Peripheral Arterial Disease (HCC) 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) DX CHEST PORTABLE 1 VIEW RAD - Emergent (Fastest; for the most critically ill patients) 04/03/2024 5:11 PM SPINNER FIXER ECG STAT 04/03/2024 4:55 PM SPINNER FIXER ACT, POCT, B Routine 04/03/2024 4:43 PM SPINNER FIXER HEMOGLOBIN (HGB), POCT, B Routine 04/03/2024 4:40 PM SPINNER FIXER CONTINUOUS CYCLING PERITONEAL DIALYSIS (CCPD) Routine 04/03/2024 4:26 PM SPINNER FIXER ACT, POCT, B Routine 04/03/2024 3:20 PM SPINNER FIXER ANGIOPLASTY/STENT ENDOVASCULAR FEMORAL AND/OR POPLITEAL AND/OR TIBIAL ARTERY 04/03/2024 1:21 PM SPINNER FIXER Peripheral Arterial Disease (HCC) 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) 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 1106 BASIC METABOLIC PANEL, S/P STAT 04/03/2024 1:19 PM SPINNER FIXER HEMOGLOBIN A1C, B STAT 04/03/2024 1:1 9 PM SPINNER FIXER PATIENT STATUS STAT 04/03/2024 1:18 PM SPINNER FIXER LACTATE, VENOUS, B STAT 04/03/2024 1: 18 PM SPINNER FIXER GLUCOSE, VENOUS, B STAT 04/03/2024 1: 18 PM SPINNER FIXER POTASSIUM, VENOUS, B STAT 04/03/2024 1:18 PM SPINNER FIXER SODIUM, VENOUS, B STAT 04/03/2024 1:1 8 PM SPINNER FIXER CALCIUM, IONIZED, VENOUS, B STAT 04/03/2024 1:18 PM SPINNER FIXER VENOUS BLOOD GAS W/COOX, B STAT 04/03/2024 1:18 PM SPINNER FIXER GLUCOSE POCT, B Routine 04/03/2024 1:13 PM SPINNER FIXER MISC RESEARCH ORDER, B Routine 04/03/2024 11:20 AM SPINNER FIXER VASCULAR IMAGE EXAM Routine 03/12/2024 7:10 AM [...] Renal Disease ALBUMIN, RANDOM, U Routine 02/17/2023 9: 26 AM CDT Hypertension And Chronic Kidney Disease Stage 4 (HCC) 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) Anemia Of Chronic Renal Disease LIPID PANEL, S Routine 02/10/2021 8:27 AM [...] Recently Relevant to Health Maintenance Results * IR IMAGING (04/04/2024 9:42 AM SPINNER FIXER) Only the most recent of2 resultswithin the time period is included. Anatomical Region Laterality Modality N/A Other Narrative 04/05/2024 7:12 AM SPINNER FIXER Performed by surgeon - see Op Note for result. Kemar Reyes IMG IR PROCEDURES Final Res ult * (ABNORMAL) ACT (Activated Clotting Time), POCT (04/04/2024 8:47 AM SPINNER FIXER) Only the most recent of3 resultswithin the time period is included. Activated Clotting Time 262(H) 82 - 152 sec 04/04/2024 8:48 AM SPINNER FIXER PCLX 04/04/2024 8:47 AM SPINNER FIXER 04/04/2024 8:49 AM SPINNER FIXER us Unknown Provider LAB POCT ORDERABLES - DEVICE Fi nal Result Performing Organization Address [facility]/ZIP Co de Phone Number POC [facility] [address] [place] [address], [facility] PCLX [facility] [address] [place] [address] * (ABNORMAL) CBC without Differential (04/04/2024 4:22 AM SPINNER FIXER) Hemoglobin 10.5(L) 13.2 - 16.6 g/dL 04/04/2024 5:33 AM SPINNER FIXER DHPM Hematocrit 31.7(L) 38.3 - 48.6 % 04/04/2024 5:33 AM SPINNER FIXER DHPM Erythrocytes 3.09(L) 4.35 - 5.65 x10(12)/L 04/04/2024 5:33 AM SPINNER FIXER DHPM MCV 102.6(H) 78.2 - 97.9 fL 04/04/2024 5:33 AM SPINNER FIXER DHPM RBC Distrib Width 14.6(H) 11.8 - 14.5 % 04/04/2024 5:33 AM SPINNER FIXER DHPM Platelet Count 236 135 - 317 x10(9)/L 04/04/2024 5:33 AM SPINNER FIXER DHPM Leukocytes 9.4 3.4 - 9.6 x10(9)/L 04/04/2024 5:33 AM SPINNER FIXER DHPM Blood (Blood, Venous) 04/04/2024 4:22 AM SPINNER FIXER 04/04/2024 4:58 AM SPINNER FIXER us Theodore Crocker M.D. LAB BLOOD ADD-ON Final Res ult Performing Organization Address City/[facility]/ZIP Co de Phone Number [facility] [address] [place] [address], [facility] DHPM [facility] [address] [place] [address] * (ABNORMAL) Troponin T, 5th Generation (04/04/2024 4:22 AM SPINNER FIXER) Troponin T, 5th gen 155(H) <=15 ng/L 04/04/2024 4:56 AM SPINNER FIXER STMA Comment:Consider acute myoca rdial injury Blood (Blood, Venous) 04/04/2024 4:22 AM SPINNER FIXER 04/04/2024 4:39 AM SPINNER FIXER Bry Choudhury M.D. LAB BLOOD ADD-ON Final R esult [facility] [address] [place] [address], [facility] [address] [place] [address] * (ABNORMAL) Basic Metabolic Panel (04/04/2024 4:22 AM SPINNER FIXER) Only the most recent of3 resultswithin the time period is included. Pathologist [facility] Potassium, S 4.1 3.6 - 5.2 mmol/L 04/04/2024 5:47 AM SPINNER FIXER DTL Sodium, S 136 135 - 145 mmol/L 04/04/2024 5:47 AM SPINNER FIXER DTL Chloride, S 97(L) 98 - 107 mmol/L 04/04/2024 5:47 AM SPINNER FIXER DTL Bicarbonate, S 20(L) 22 - 29 mmol/L 04/04/2024 5:47 AM SPINNER FIXER DTL Anion Gap 19(H) 7 - 15 04/04/2024 5:47 AM SPINNER FIXER DTL BUN (Blood Urea Nitrogen), S 67(H) 8 - 24 mg/dL 04/04/2024 5:47 AM SPINNER FIXER DTL Creatinine 5.68(H) 0.74 - 1.35 mg/dL 04/04/2024 5:47 AM SPINNER FIXER DTL Estimated GFR (eGFR) <15(L) >=60 mL/min/BSA 04/04/2024 5:47 AM SPINNER FIXER DTL Comment: Estimated GFR calculated using the 2020 CKD_EPI creatinine equation. Calcium, Total, S 7.8(L) 8.8 - 10.2 mg/dL 04/04/2024 5:47 AM SPINNER FIXER DTL Glucose, S 172(H) 70 - 140 mg/dL 04/04/2024 5:47 AM SPINNER FIXER DTL Blood (Blood, Venous) 04/04/2024 4:22 AM SPINNER FIXER 04/04/2024 5:10 AM SPINNER FIXER Theodore Crocker M.D. LAB BLOOD ADD-ON Final Res ult Performing Organization Address [facility] de Phone Number [facility] [address] DTL [facility] [address] [place] [address] * (ABNORMAL) Troponin T, 6h, 5th Gen (04/04/2024 12:10 AM SPINNER FIXER) Troponin T, 6 hr, 5th gen 158(H) <=15 ng/L 04/04/2024 12:36 AM SPINNER FIXER STMA Comment:Consider acute myoca rdial injury 6H Delta % 10 % 04/04/2024 12:36 AM SPINNER FIXER STMA 6H Delta Interp Not Changing 04/04/2024 12:36 AM SPINNER FIXER STMA Blood 04/04/2024 12:1 0 AM SPINNER FIXER 04/04/2024 12:17 AM SPINNER FIXER us Theodore Crocker M.D. LAB BLOOD TROPONIN Final R esult Performing Organization Address [facility] [facility] de Phone Number [facility] [address] [place], [place] [address] [place] [address] STMA [facility] [address] [place] [address] * (ABNORMAL) Troponin T, 2 Hour with 6 Hour Reflex, 5th Gen (04/03/2024 8:18 PM SPINNER FIXER) Troponin T, 2 hr, 5th gen 135(H) <=15 ng/L 04/03/2024 8:51 PM SPINNER FIXER STMA Comment:Consider acute myoca rdial injury 2H Delta % -6 % 04/03/2024 8:51 PM SPINNER FIXER STMA Comment:6 hour collection pe nding. 2H Delta Interp Not Changing 04/03/2024 8:51 PM SPINNER FIXER STMA Blood 04/03/2024 8:18 PM SPINNER FIXER 04/03/2024 8:27 PM SPINNER FIXER us Theodore Crocker M.D. LAB BLOOD TROPONIN Final R [facility] Performing Organization Address City/[facility] Co de Phone Number [facility] [address] [place] [address], [facility] [address] [place] [address] * (ABNORMAL) Troponin T, Baseline with 2 Hour/6 Hour Reflex Biomarker Panel (04/03/2024 6:04 PM SPINNER FIXER) [facility] Troponin T, Baseline, 5th gen 143(H) <=15 ng/L 04/03/2024 6:42 PM SPINNER FIXER STMA Comment:Consider acute myoca rdial injury Blood (Blood, Venous) 04/03/2024 6:04 PM SPINNER FIXER 04/03/2024 6:14 PM SPINNER FIXER Theodore Crocker M.D. LAB BLOOD TROPONIN Final R [facility] Performing Organization Address [facility] Co de Phone Number [facility] [address] [place] [address], [facility] [address] [place] [address] * (ABNORMAL) CBC with Differential, Blood (04/03/2024 6:04 PM SPINNER FIXER) [facility] Hemoglobin 10.7(L) 13.2 - 16.6 g/dL 04/03/2024 6:18 PM SPINNER FIXER STMA Hematocrit 32.9(L) 38.3 - 48.6 % 04/03/2024 6:18 PM SPINNER FIXER STMA Erythrocytes 3.19(L) 4.35 - 5.65 x10(12)/L 04/03/2024 6:18 PM SPINNER FIXER STMA MCV 103.1(H) 78.2 - 97.9 fL 04/03/2024 6:18 PM SPINNER FIXER STMA RBC Distrib Width 14.6(H) 11.8 - 14.5 % 04/03/2024 6:18 PM SPINNER FIXER STMA Platelet Count 249 135 - 317 x10(9)/L 04/03/2024 6:18 PM SPINNER FIXER STMA Leukocytes 12.0(H) 3.4 - 9.6 x10(9)/L 04/03/2024 6:18 PM SPINNER FIXER STMA Neutrophils 10.34(H) 1.56 - 6.45 x10(9)/L 04/03/2024 6:18 PM SPINNER FIXER DHPM Lymphocytes 0.75(L) 0.95 - 3.07 x10(9)/L 04/03/2024 6:18 PM SPINNER FIXER STMA Monocytes 0.49 0.26 - 0.81 x10(9)/L 04/03/2024 6:18 PM SPINNER FIXER STMA Eosinophils 0.35 0.03 - 0.48 x10(9)/L 04/03/2024 6:18 PM SPINNER FIXER STMA Basophils 0.04 0.01 - 0.08 x10(9)/L 04/03/2024 6:18 PM SPINNER FIXER STMA Blood (Blood, Venous) 04/03/2024 6:04 PM SPINNER FIXER 04/03/2024 6:14 PM SPINNER FIXER us Theodore Crocker M.D. LAB BLOOD ADD-ON Final Res ult [facility] [address] [place] [address], [facility] STMA [facility] [address] [place] [address] DHPM [facility] [address] [place] [address] * (ABNORMAL) Phosphorus Inorganic (04/03/2024 6:04 PM SPINNER FIXER) Phosphorus (Inorganic), P 7.6(H) 2.5 - 4.5 mg/dL 04/03/2024 8:26 PM SPINNER FIXER DTL Blood (Blood, Venous) 04/03/2024 6:04 PM SPINNER FIXER 04/03/2024 6:14 PM SPINNER FIXER us Theodore Crocker M.D. LAB BLOOD ADD-ON Final Res ult [facility] [address] DTL [facility] [address] [place] [address] * Magnesium (04/03/2024 6:04 PM SPINNER FIXER) Magnesium, P 1.9 1.7 - 2.3 mg/dL 04/03/2024 6:33 PM SPINNER FIXER STMA Blood (Blood, Venous) 04/03/2024 6:04 PM SPINNER FIXER 04/03/2024 6:14 PM SPINNER FIXER us Theodore Crocker M.D. LAB BLOOD ADD-ON Final Res ult [facility] [address] STMA [facility] [address] [place] [address] * DX Chest Portable 1 View (04/03/2024 5:11 PM SPINNER FIXER) Anatomical Region Laterality Modality Chest, Thoracic RST LOS, Tho racic ARZ LOS, Thoracic FLA LOS N/A Digital Radiography Impressions 04/03/2024 5:25 PM SPINNER FIXER Since 11/17/2022, new suspected diffuse interstitial pulmonary edema throughout both lungs. Probable trace right pleural effusion. Low lung volumes and lordotic positioning accentuate the cardiac silhouette and pulmonary vascularity. Otherwise no change. Aortic calcification. Degenerative changes of the spine. Narrative 04/03/2024 5:25 PM SPINNER FIXER EXAM: DX CHEST PORTABLE 1 VIEW Procedure Note Jasmin Hill M.D. - 04/03/2024 EXAM: DX CHEST PORTABLE 1 VIEW IMPRESSION: Since 11/17/2022, new suspected diffuse interstitial pulmonary edemathroughout both lungs. Probable trace right pleural effusion. Low lungvolumes and lordotic positioning accentuate the cardiac silhouette andpulmonary vascularity. Otherwise no change. Aortic calcification. Degenerative changes of the spine. us Vida Rodriguez M.D., Ph.D. IMG DIAGNOSTIC IMAGING PROCEDURES Final Result * ECG 12 Lead (04/03/2024 4:55 PM SPINNER FIXER) Only the most recent of2 resultswithin the time period is included. Ventricular Rate ECG/Min 95 BPM MUSE PA Interval 134 ms MUSE QRSD Interval 134 ms MUSE QT Interval 396 ms MUSE QTC Interval 497 ms MUSE P [place] 69 degrees MUSE R [place] -25 degrees MUSE T Wave [place] 75 degrees MUSE 04/03/2024 4:55 PM SPINNER FIXER 04/03/2024 5:18 PM SPINNER FIXER Impressions MUSE - 04/03/2024 5:18 PM SPINNER FIXER Normal sinus rhythm Right bundle branch block with secondary ST-T abnormalities When compared with ECG of 05-Mar-2024 11:03, No significant change was found Reviewed by JUAREZ Bingham Narrative Procedure Note Albino Gutierrez M.D. - 04/03/2024 IMPRESSION: Normal sinus rhythm Right bundle branch block with secondary ST-T abnormalities When compared with ECG of 05-Mar-2024 11:03, No significant change was found Reviewed by JUAREZ Bingham us Theodore Crocker M.D. ECG ORDERABLES Final Resu lt MUSE NA * (ABNORMAL) Hemoglobin (HGB), POCT (04/03/2024 4:40 PM SPINNER FIXER) Hemoglobin, POCT, B 10.1(L) 13.2 - 16.6 g/dL 04/03/2024 4:45 PM SPINNER FIXER PCSM Blood 04/03/2024 4:40 PM SPINNER FIXER 04/03/2024 4:45 PM SPINNER FIXER us Unknown Provider LAB POCT ORDERABLES - DEVICE Fi nal Result POC RST [facility] [address] [place] [address], [place] [facility] [place] P[facility] [address] [place] [address] * (ABNORMAL) Hemoglobin A1c (04/03/2024 1:19 PM SPINNER FIXER) Hemoglobin A1c, B 7.0(H) 4.0 - 5.6 % 04/03/2024 2:34 PM SPINNER FIXER DT Comment: Hemoglobin A1c values greater than or equal to 6.5 percent are diagnostic for diabetes mellitus. Diagnosis should be confirmed by repeat testing. In diabetic patients, HbA1c goals should be discussed with healthcare provider. Blood (Blood, Venous) 04/03/2024 1:19 PM SPINNER FIXER 04/03/2024 2:17 PM SPINNER FIXER Cristal Pfeiffer D.O. LAB BLOOD ADD-ON Final Result [facility] [address] [place] [address], [facility] [address] [place] [address] * Glucose, Venous, Blood (04/03/2024 1:18 PM SPINNER FIXER) Pathologist [facility] Glucose, Venous, B 138 70 - 140 mg/dL 04/03/2024 1:50 PM SPINNER FIXER STMA Blood (Blood, Venous) 04/03/2024 1:18 PM SPINNER FIXER 04/03/2024 1:24 PM SPINNER FIXER Stacy Guerrero APRN, CRNA, D.N.P. LAB BLO OD ADD-ON Final Result [facility] [address] [place] [address], [facility] STMA [facility] [address] [place] [address] * Potassium, Venous, Blood (04/03/2024 1:18 PM SPINNER FIXER) Potassium, Venous, B 4.3 3.6 - 5.2 mmol/L 04/03/2024 1:54 PM SPINNER FIXER STMA Blood (Blood, Venous) 04/03/2024 1:18 PM SPINNER FIXER 04/03/2024 1:24 PM SPINNER FIXER Stacy Guerrero APRN, CRNA, D.N.P. LAB BLO OD NON ADD-ON Final Result [facility] [address] [place] [address], [facility] [address] [place] [address] * Calcium, Ionized, Venous, Blood (04/03/2024 1:18 PM SPINNER FIXER) Calcium, Ionized, Venous, B 4.67 4.65 - 5.30 mg/dL 04/03/2024 1:54 PM SPINNER FIXER STMA Blood (Blood, Venous) 04/03/2024 1:18 PM SPINNER FIXER 04/03/2024 1:24 PM SPINNER FIXER Stacy Guerrero APRN, CRNA, D.N.P. LAB BLO OD NON ADD-ON Final Result Performing Organization Address [facility] Co de Phone Number [facility] [address] [place] [address], [facility] [address] [place] [address] * Lactate, Venous, Blood (04/03/2024 1:18 PM SPINNER FIXER) Lactate, Venous, B 1.5 0.5 - 2.2 mmol/L 04/03/2024 1:50 PM SPINNER FIXER STMA Blood (Blood, Venous) 04/03/2024 1:18 PM SPINNER FIXER 04/03/2024 1:24 PM SPINNER FIXER Stacy Guerrero APRN, CRNA, D.N.P. LAB BLO OD ADD-ON Final Result Performing Organization Address City/[facility] Co de Phone Number [facility] [address] [place] [address], [facility] [address] [place] [address] * Sodium, Venous, Blood (04/03/2024 1:18 PM SPINNER FIXER) Pathologist [facility] Sodium, Venous, B 135 135 - 145 mmol/L 04/03/2024 1:50 PM SPINNER FIXER STMA Blood (Blood, Venous) 04/03/2024 1:18 PM SPINNER FIXER 04/03/2024 1:24 PM SPINNER FIXER Stacy Guerrero APRN, CRNA, D.N.P. LAB BLO OD ADD-ON Final Result Performing Organization Address [facility] Co de Phone Number [facility] [address] [place] [address] * Patient Status (04/03/2024 1:18 PM SPINNER FIXER) Pathologist [facility] FIO2 0.21 0.21=AIR 04/03/2024 1:24 PM SPINNER FIXER STMA Spont. breaths/min 20 04/03/2024 1:24 PM SPINNER FIXER STMA Blood 04/03/2024 1:18 PM SPINNER FIXER 04/03/2024 1:24 PM SPINNER FIXER Stacy Guerrero APRN, CRNA, D.N.P. LAB BLO OD NON ADD-ON Final Result Performing Organization Address [facility] Co de Phone Number [facility] [address] [place], [place] [address] [place] [address] 200 [place] [address] * (ABNORMAL) Blood Gas with Coox, Venous (04/03/2024 1:18 PM SPINNER FIXER) Pathologist [facility] pO2, Venous, B 50 Not applicable mm Hg 04/03/2024 1:26 PM SPINNER FIXER STMA pCO2, Venous, B 44 41 - 51 mm Hg 04/03/2024 1:26 PM SPINNER FIXER STMA pH, Venous, B 7.32 7.32 - 7.43 pH 024 1:26 PM SPINNER FIXER STMA Base Excess, Venous, B -4 Not applicable mmol/L 04/03/2024 1:26 PM SPINNER FIXER STMA HCO3, Venous, B 22 Not applicable mmol/L 04/03/2024 1:26 PM SPINNER FIXER STMA Hemoglobin, Venous, B 11.4(L) 13.2 - 16.6 g/dL 04/03/2024 1:26 PM SPINNER FIXER STMA O2Hb, Venous, B 75.2 Not applicable % 04/03/2024 1:26 PM SPINNER FIXER STMA COHb, Venous, B <1.0 <3.0 % 04/03/2024 1:26 PM SPINNER FIXER STMA MetHb, Venous, B 2.4(H) <1.5 % 04/03/2024 1:26 PM SPINNER FIXER STMA CtO2, Venous, B 12.1 Not Applicable vol % 04/03/2024 1:26 PM SPINNER FIXER STMA Sample Site, Venous, B Venipunct 04/03/2024 1:24 PM SPINNER FIXER STMA Blood (Blood, Venous) 04/03/2024 1:18 PM SPINNER FIXER 04/03/2024 1:24 PM SPINNER FIXER us Stacy Guerrero APRN, CRNA, D.N.P. LAB BLO OD NON ADD-ON Final Result [facility] [address] [place] [address], [facility] [address] [place] [address] * Glucose, POCT (04/03/2024 1:13 PM SPINNER FIXER) [facility] Glucose, POCT, B 133 70 - 140 mg/dL 04/03/2024 1:16 PM SPINNER FIXER PCLX Comment: Glucose results collected from venous catheters may be falsely elevated. Site Venline 04/03/2024 1:16 PM SPINNER FIXER PCLX Blood 04/03/2024 1:13 PM SPINNER FIXER 04/03/2024 1:16 PM SPINNER FIXER us Unknown Provider LAB POCT ORDERABLES-MANUAL Mary l Result POC [facility] [address] [place] [address], [facility] PCLX [facility] POC [address] [place] [address] * Misc Research, Blood (04/03/2024 11:20 AM SPINNER FIXER) Number of Specimens 5 04/03/2024 11:20 AM SPINNER FIXER HSS Blood (Blood, Venous) 04/03/2024 11:20 AM SPINNER FIXER 04/03/2024 11:20 AM SPINNER FIXER us Kemar Reyes LAB RESEARCH NO RESULT ROUT ING Final Result Performing Organization Address [facility] Co de Phone Number [facility] [address] [place] [place] [address] [address] [place] [address] * Leg-Vascular Image Exam (03/12/2024 7:10 AM [...] NON RAD IMAGING PROCE DURES Final Result Performing Organization Address City/[facility] Co de Phone Number IIMS NA * MR Foot Right without [...] appearance. 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 Dual-energy CT may or may not be [...] evaluation. Narrative 03/09/2024 5:54 PM CDT EXAM: CT ABD PELVIS ANGIO AND LOWER [...] aorta is circumferential. VISCERAL ARTERIES: Celiac artery: Moderate stenosis of the celiac artery near the origin by mixed calcified and noncalcified plaque (for example series 7, image 75). Superior mesenteric artery: Calcified plaque at the origin of the superior mesenteric artery causing mild stenosis. Inferior mesenteric artery: At least mild stenosis at the origin. RENAL ARTERIES: Right renal arteries: Single right renal artery. Predominantly calcified plaque is seen at the origin and in the proximal artery causing minimal stenosis. Left renal arteries: Single left renal artery with densely calcified plaque at the origin causing mild stenosis. Note that there is early branching of the left renal artery. ILIAC ARTERIES: Right common iliac artery: Diffuse densely calcified plaque. Diffuse moderate stenosis. Right internal iliac artery: Severe stenosis at the origin of the right internal iliac artery by mixed calcified and noncalcified plaque. Right external iliac artery: At least moderate stenosis at the origin, possibly severe. Diffuse calcified plaque causing multifocal mild stenoses. Left common iliac artery: Stented proximally. The stent appears widely patent without significant stenosis. Left internal iliac artery: At least mild stenosis at the origin with diffuse calcified plaque distally. Left external iliac artery: At least mild stenosis at the origin. Stent in the midportion which appears widely patent without significant stenosis. Noncalcified plaque distal to the stent causes at least mild stenosis. RIGHT LEG: Right common femoral artery: Mixed [...] femoral artery: Moderate stenosis at the origin (series 5, image [...] popliteal artery: Multifocal mild stenoses throughout the popliteal artery with [...] mural thrombus causing moderate stenosis (series 5, [id number]). Moderate to severe stenosis distal to the [...] arteries bilateral appear patent, howeversomewhat limited evaluation. Jayjay Pak P.A.-C. IMG CT PROCEDURES Final [...] DEVICE Fi nal Result Performing Organization Address [facility]/State/ZIP Co de Phone Number POC [facility] [address] [place] [address], [place] PCDT [facility] [place] POC [address] [place] [address] * DX Foot Bilateral 3+ Views (03/07/2024 [...] Doppler waveforms at the ankle. us Jayjay A Meverden P.A.-C. IMG US PROCEDURES Final Result * [...] iliac artery stenosis is notdefinitely identified today. Jayjay Pak P.A.-C. 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 us Jayjay Pak P.A.-C. CV VASCULAR PROCEDURES F inal Result * HCV Ab Scrn w/Reflex to HCV PCR, Serum (02/17/2023 9:35 AM CDT) HCV Ab Screen, S Negative Negative 02/18/20 3:35 PM CDT MKTO Comment: Biotin has been identified by the lime filter operator as a potential interfering substance. Higher [...] 3:35 PM CDT Specimen Information: Specimen ID: [id number] Specimen Type: Blood Specimen Collection Start Date: 02/17/2023 9:35 AM Specimen Received Date: 02/17/2023 2:20 PM Specimen ID: [id number] Specimen Type: Blood Specimen Collection Start Date: 02/17/2023 9:35 AM Specimen Received Date: 02/17/2023 2:16 PM us Haseeb Menon Jr. D.OFei LAB MICROBIOLOGY - B LOOD ORDERABLES Final Result [facility] [address] [place] [address], [place] MKTO [facility] [place] [address] [place] [address] * (ABNORMAL) Albumin, Random, Urine (02/17/2023 9:26 AM CDT) Microalbumin 895.0 mg/L 02/17/2023 1:53 PM CDT OWAT Creatinine 42 mg/dL 02/17/2023 12:50 PM CDT OWAT Albumin/Creatinin e Ratio 2131(H) <17 mg/g 02/17/2023 1:53 PM CDT OWAT Urine (Urine, Voided) 02/17/2023 9:26 AM CDT 02/17/2023 11:00 AM CDT us Haseeb Menon Jr. D.O. LAB URINE ORDERABLES Final Result Performing Organization Address City/State/[facility] Co de Phone Number [facility] [address] [place] [address], [facility] OWAT [facility] [place] [address] [place] [address] * (ABNORMAL) Lipid Panel (02/10/2021 8:27 AM [...] Reyes LAB BLOOD ADD-ON Final Resu lt [facility] [address] [place] [address], [facility] [address] [place] [address] * CT Abdomen Pelvis Angiogram with IV Contrast (03/15/2018 8:48 AM CDT) Anatomical Region Laterality Modality Abdomen, Pelvis, Cardiovascu lar RST LOS, Abdominal ARZ LOS, Vascular Interventional ARZ LOS, Vascular Interventional FLA LOS, Abdominal FLA LOS N/A Computed Johnathon ography 03/15/2018 10:4 9 AM CDT Impressions 03/15/2018 12:31 PM CDT IMPRESSION: 1. High-grade stenosis distal to the left external iliac artery stent. 2. Stents themselves are widely patent (left common iliac, left external iliac, distal right superficial femoral, distal left superficial femoral). 3. Right external iliac moderate stenosis. 4. Left common femoral artery moderate stenosis. Narrative 03/15/2018 12:31 PM CDT EXAM: CT ABDOMEN PELVIS ANGIOGRAM WITH IV CONTRAST COMPARISON: Ultrasound 02/08/2018. CTA abdomen and pelvis with 02/18/2017. IR angiogram 08/31/2017. FINDINGS: VASCULAR FINDINGS: ABDOMINAL AORTA: Nonaneurysmal abdominal aorta with calcified and noncalcified plaque most prominent distally. RENAL ARTERIES: Right renal arteries: Single right renal artery. Widely patent. Left renal arteries: Single left renal artery. Widely patent with calcified plaque at the origin. VISCERAL ARTERIES: Celiac artery: Widely patent. Superior mesenteric artery: Moderate stenosis proximal superior mesenteric artery, best seen on image 5, image 62 and series 6, image 91. Inferior mesenteric artery: Atherosclerotic plaque at the origin of the inferior mesenteric artery appears to cause moderate stenosis.. ILIAC ARTERIES: Right common iliac artery: Calcified plaque with mild stenosis Right internal iliac artery: Calcified plaque at the origin with moderate stenosis. Right external iliac artery: Scattered atheromatous plaque with moderate stenosis distally. Left common iliac artery: Stent is widely patent. Left internal iliac artery: Widely patent. Left external iliac artery: Stent is widely patent. High-grade stenosis just distal to the stent is new since 03/04/2017 and likely increased from 08/31/2017. RIGHT LEG (to distal thigh): Right common femoral artery: Atherosclerotic plaque causes mild stenosis. Right deep femoral artery: Widely patent. Right superficial femoral artery: Widely patent with patent stent distally. LEFT LEG (to distal thigh): Left common femoral artery: Atherosclerotic plaque causes moderate stenosis. Left deep femoral artery: Patent without significant stenosis. Left superficial femoral artery: Moderate stenosis proximally. Patent distal superficial femoral artery [...] Most Recently Relevant to Health Maintenance Insurance [facility] MEDICARE Advance Directives For more information, please contact: [phone] * Full Code (Latest Code Status on File) Date Activated Date Inactivated Comments 04/03/2024 6:43 PM 04/04/2024 8:13 PM Question Answer Comments Full Code: Discussed * Full Code Date Activated Date Inactivated Comments 02/16/2023 7:32 [...] Answer Comments Full Code: Discussed Care Teams Insurance Commissioner Relationship Specialty Start Date End Date Elsewhere, Pcp PCP - General Family Medicine 01/29/20
--- OUTSIDE RECORDS SUMMARY | 2024-04-24 10:01 | XMS_ITS ---
Author Organization [facility] Address [address] [place] [address] Care Team Providers Care Account Clerk Name Role Phone Elsewhere, Pcp Primary Care Provider Unavailabl e Dialysis Plan of Treatment Dialysis Prescription As-Of Date Prescribed Dry Weight Primary Se tting 04/03/2024 Acute Dialysis S CA Instructions Modality Start Time Dwell Time (hours) Dextrose Strength Continuous Cycling Peritonea l Dialysis Dialysis Access Type Location from Last 30 Days Procedures Procedure Name Priority Date/Time Associated Diagnosis Comments IR IMAGING RAD - Routine (most inpatients and all outpatients) 04/04/2024 9:42 AM REIMBURSEMENT REPRESENTATIVE Peripheral Arterial Disease (HCC) 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) ACT, POCT, B Routine 04/04/2024 8:47 AM REIMBURSEMENT REPRESENTATIVE ANGIOPLASTY/STENT ENDOVASCULAR FEMORAL AND/OR POPLITEAL AND/OR TIBIAL ARTERY 04/04/2024 7:16 AM REIMBURSEMENT REPRESENTATIVE Peripheral Arterial Disease (HCC) 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) TROPONIN T, 5TH GEN, P Timed 04/04/2024 4:22 AM REIMBURSEMENT REPRESENTATIVE BASIC METABOLIC PANEL, S/P Timed 04/04/2024 4:22 AM REIMBURSEMENT REPRESENTATIVE CBC WITHOUT DIFFERENTIAL, B Timed 04/04/2024 4:22 AM REIMBURSEMENT REPRESENTATIVE TROPONIN T, 6H, 5TH GEN, P Timed 04/04/2024 12:10 AM REIMBURSEMENT REPRESENTATIVE TROPONIN T, 2H/6H REFLEX, 5TH GEN, P Timed 04/03/2024 8:18 PM REIMBURSEMENT REPRESENTATIVE ADULT OXYGEN THERAPY Routine 04/03/2024 6:43 PM REIMBURSEMENT REPRESENTATIVE ADULT OXYGEN THERAPY Routine 04/03/2024 6:43 PM REIMBURSEMENT REPRESENTATIVE TROPONIN T, BASELINE, 5TH GEN, P STAT 04/03/2024 6:04 PM REIMBURSEMENT REPRESENTATIVE PHOSPHORUS (INORGANIC), S STAT 04/03/2024 6:04 PM REIMBURSEMENT REPRESENTATIVE MAGNESIUM, S STAT 04/03/2024 6:04 PM REIMBURSEMENT REPRESENTATIVE BASIC METABOLIC PANEL, S/P STAT 04/03/2024 6:04 PM REIMBURSEMENT REPRESENTATIVE CBC WITH DIFFERENTIAL, B STAT 04/03/2024 6:04 PM REIMBURSEMENT REPRESENTATIVE IR IMAGING RAD - Routine (most inpatients and all outpatients) 04/03/2024 5:17 PM REIMBURSEMENT REPRESENTATIVE Peripheral Arterial Disease (HCC) 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) DX CHEST PORTABLE 1 VIEW RAD - Emergent (Fastest; for the most critically ill patients) 04/03/2024 5:11 PM REIMBURSEMENT REPRESENTATIVE ECG STAT 04/03/2024 4:55 PM REIMBURSEMENT REPRESENTATIVE ACT, POCT, B Routine 04/03/2024 4:43 PM REIMBURSEMENT REPRESENTATIVE HEMOGLOBIN (HGB), POCT, B Routine 04/03/2024 4:40 PM REIMBURSEMENT REPRESENTATIVE CONTINUOUS CYCLING PERITONEAL DIALYSIS (CCPD) Routine 04/03/2024 4:26 PM REIMBURSEMENT REPRESENTATIVE ACT, POCT, B Routine 04/03/2024 3:20 PM REIMBURSEMENT REPRESENTATIVE ANGIOPLASTY/STENT ENDOVASCULAR FEMORAL AND/OR POPLITEAL AND/OR TIBIAL ARTERY 04/03/2024 1:21 PM REIMBURSEMENT REPRESENTATIVE Peripheral Arterial Disease (HCC) 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) Case Notes REFRACTORY SPECIALIST 1106 BASIC METABOLIC PANEL, S/P STAT 04/03/2024 1:19 PM REIMBURSEMENT REPRESENTATIVE HEMOGLOBIN A1C, B STAT 04/03/2024 1:1 9 PM REIMBURSEMENT REPRESENTATIVE PATIENT STATUS STAT 04/03/2024 1:18 PM REIMBURSEMENT REPRESENTATIVE LACTATE, VENOUS, B STAT 04/03/2024 1: 18 PM REIMBURSEMENT REPRESENTATIVE GLUCOSE, VENOUS, B STAT 04/03/2024 1: 18 PM REIMBURSEMENT REPRESENTATIVE POTASSIUM, VENOUS, B STAT 04/03/2024 1:18 PM REIMBURSEMENT REPRESENTATIVE SODIUM, VENOUS, B STAT 04/03/2024 1:1 8 PM REIMBURSEMENT REPRESENTATIVE CALCIUM, IONIZED, VENOUS, B STAT 04/03/2024 1:18 PM REIMBURSEMENT REPRESENTATIVE VENOUS BLOOD GAS W/COOX, B STAT 04/03/2024 1:18 PM REIMBURSEMENT REPRESENTATIVE GLUCOSE POCT, B Routine 04/03/2024 1:13 PM REIMBURSEMENT REPRESENTATIVE MISC RESEARCH ORDER, B Routine 04/03/2024 11:20 AM REIMBURSEMENT REPRESENTATIVE VASCULAR IMAGE EXAM Routine 03/12/2024 7:10 AM [...] or Most Recently Relevant to Health Maintenance Allergies Active Allergy Reactions Criticality Noted Date Comments Gabapentin Other (see comments) Medium 08/04/2020 Dizzy, memory issue Morphine Itching,Rash Medium 02/14/2012 itchy Pregabalin Anaphylaxis High 02/16/2017 swell Uxxrqyb-Zoo-Nnp Reductase Inhibitors Myalgia Low 02/13/2014 Medications DULoxetine [...] (75 mg total) by mouth daily. 04/04/20 024 Discontinued(Re order) Active Problems Patient Care [...] 04/21/2018 Restless Leg Syndrome 01/12/2018 Atherosclerosis Of [place] Ar teries Of Extremities With Intermittent Claudication Right Leg 08/08/2017 Hyperlipidemia 07/22/2017 Ulcer Leg Left 04/19/2017 Ulcer Toe Left 04/19/2017 Atherosclerosis Of [place] Ar teries Of Left Leg With Ulceration Of Unspecified Site 04/19/2017 Peripheral Arterial Disease 02/16/2017 Hypertension NOS 02/16/2017 Hypertensive Chronic Kidney Disease With Stage 1 Through Stage 4 Chronic Kidney Disease, Or Unspecified Chronic Kidney Disease 09/23/2016 Overview (10/05/2016): Hypertension (HTN) And CKD Stage 1-4 [facility] Use Of Insulin Active 09/23/2016 Overview (10/05/2016): [employer]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 Never 03/24/2021 [...] your living situation today? I have a [facility] place to live 04/04/2024 Education Answer Date Recorded What is the highest level of school you have completed or the highest degree you have received? Some college, no degree 03/24/2021 Sex and Gender Information Value Date Recorded Sex Assigned at Male 03/24/2021 8:13 PM REIMBURSEMENT REPRESENTATIVE Legal Sex Male 12:04 AM REIMBURSEMENT REPRESENTATIVE Gender Identity Male 08/31/2019 2:40 PM CDT Sexual Orientation Straight 08/31/2019 2: 40 PM CDT Last Filed Vital Signs Vital Sign Reading Time Taken Comments Blood Pressure 175/57 04/04/2024 5:18 PM REIMBURSEMENT REPRESENTATIVE Pulse 79 04/04/2024 4:30 PM REIMBURSEMENT REPRESENTATIVE Temperature 36.6 C (97.9 F) 04/04/2024 4:30 PM REIMBURSEMENT REPRESENTATIVE Respiratory Rate 19 04/04/2024 4:30 PM REIMBURSEMENT REPRESENTATIVE Oxygen Saturation 97% 04/04/2024 4:30 PM REIMBURSEMENT REPRESENTATIVE Inhaled Oxygen Concentration - - Weight 87.1 kg (192 lb) 04/03/2024 11:11 AM REIMBURSEMENT REPRESENTATIVE Height 175.3 cm (5' 9) 04/03/2024 11:11 AM REIMBURSEMENT REPRESENTATIVE Body Mass Index 28.35 04/03/2024 11:11 AM REIMBURSEMENT REPRESENTATIVE Results * IR IMAGING (04/04/2024 9:42 AM REIMBURSEMENT REPRESENTATIVE) Only the most recent of2 resultswithin the time period is included. Anatomical Region Laterality Modality N/A Other Narrative 04/05/2024 7:12 AM REIMBURSEMENT REPRESENTATIVE Performed by surgeon - see Op Note for result. Kemar Reyes IMG IR PROCEDURES Final Res ult * (ABNORMAL) ACT (Activated Clotting Time), POCT (04/04/2024 8:47 AM REIMBURSEMENT REPRESENTATIVE) Only the most recent of3 resultswithin the time period is included. Activated Clotting Time 262(H) 82 - 152 sec 04/04/2024 8:48 AM REIMBURSEMENT REPRESENTATIVE PCLX 04/04/2024 8:47 AM REIMBURSEMENT REPRESENTATIVE 04/04/2024 8:49 AM REIMBURSEMENT REPRESENTATIVE us Unknown Provider LAB POCT ORDERABLES - DEVICE Fi nal Result Performing Organization Address City/[facility]/[place]UST Co de Phone Number POC [facility] [address] [place] [address], [facility] PCLX [facility] POC [address] [place] [address] * (ABNORMAL) CBC without Differential (04/04/2024 4:22 AM REIMBURSEMENT REPRESENTATIVE) Hemoglobin 10.5(L) 13.2 - 16.6 g/dL 04/04/2024 5:33 AM REIMBURSEMENT REPRESENTATIVE DHPM Hematocrit 31.7(L) 38.3 - 48.6 % 04/04/2024 5:33 AM REIMBURSEMENT REPRESENTATIVE DHPM Erythrocytes 3.09(L) 4.35 - 5.65 x10(12)/L 04/04/2024 5:33 AM REIMBURSEMENT REPRESENTATIVE DHPM MCV 102.6(H) 78.2 - 97.9 fL 04/04/2024 5:33 AM REIMBURSEMENT REPRESENTATIVE DHPM RBC Distrib Width 14.6(H) 11.8 - 14.5 % 04/04/2024 5:33 AM REIMBURSEMENT REPRESENTATIVE DHPM Platelet Count 236 135 - 317 x10(9)/L 04/04/2024 5:33 AM REIMBURSEMENT REPRESENTATIVE DHPM Leukocytes 9.4 3.4 - 9.6 x10(9)/L 04/04/2024 5:33 AM REIMBURSEMENT REPRESENTATIVE DHPM Blood (Blood, Venous) 04/04/2024 4:22 AM REIMBURSEMENT REPRESENTATIVE 04/04/2024 4:58 AM REIMBURSEMENT REPRESENTATIVE Theodore Crocker M.D. LAB BLOOD ADD-ON Final Res ult Performing Organization Address City/[facility]/ZIP Co de Phone Number [facility] [address] [place] [address], [facility] [address] [place] [address] * (ABNORMAL) Troponin T, 5th Generation (04/04/2024 4:22 AM REIMBURSEMENT REPRESENTATIVE) Pathologist [facility] Troponin T, 5th gen 155(H) <=15 ng/L 04/04/2024 4:56 AM REIMBURSEMENT REPRESENTATIVE STMA Comment:Consider acute myoca rdial injury Blood (Blood, Venous) 04/04/2024 4:22 AM REIMBURSEMENT REPRESENTATIVE 04/04/2024 4:39 AM REIMBURSEMENT REPRESENTATIVE us Bry Choudhury M.D. LAB BLOOD ADD-ON Final R esult [facility] [place] [address] [place] [address], [place] [facility] [address] [place] [address] * (ABNORMAL) Basic Metabolic Panel (04/04/2024 4:22 AM REIMBURSEMENT REPRESENTATIVE) Only the most recent of3 resultswithin the time period is included. Potassium, S 4.1 3.6 - 5.2 mmol/L 04/04/2024 5:47 AM REIMBURSEMENT REPRESENTATIVE DTL Sodium, S 136 135 - 145 mmol/L 04/04/2024 5:47 AM REIMBURSEMENT REPRESENTATIVE DTL Chloride, S 97(L) 98 - 107 mmol/L 04/04/2024 5:47 AM REIMBURSEMENT REPRESENTATIVE DTL Bicarbonate, S 20(L) 22 - 29 mmol/L 04/04/2024 5:47 AM REIMBURSEMENT REPRESENTATIVE DTL Anion Gap 19(H) 7 - 15 04/04/2024 5:47 AM REIMBURSEMENT REPRESENTATIVE DTL BUN (Blood Urea Nitrogen), S 67(H) 8 - 24 mg/dL 04/04/2024 5:47 AM REIMBURSEMENT REPRESENTATIVE DTL Creatinine 5.68(H) 0.74 - 1.35 mg/dL 04/04/2024 5:47 AM REIMBURSEMENT REPRESENTATIVE DTL Estimated GFR (eGFR) <15(L) >=60 mL/min/BSA 04/04/2024 5:47 AM REIMBURSEMENT REPRESENTATIVE DTL Comment: Estimated GFR calculated using the 2020 CKD_EPI creatinine equation. Calcium, Total, S 7.8(L) 8.8 - 10.2 mg/dL 04/04/2024 5:47 AM REIMBURSEMENT REPRESENTATIVE DTL Glucose, S 172(H) 70 - 140 mg/dL 04/04/2024 5:47 AM REIMBURSEMENT REPRESENTATIVE DTL Blood (Blood, Venous) 04/04/2024 4:22 AM REIMBURSEMENT REPRESENTATIVE 04/04/2024 5:10 AM REIMBURSEMENT REPRESENTATIVE us Theodore Crocker M.D. LAB BLOOD ADD-ON Final Res ult Performing Organization Address City/[facility]/ZIP Co de Phone Number [facility] [place] [address] [place] [address], [facility] DTL [facility] [address] [place] [address] * (ABNORMAL) Troponin T, 6h, 5th Gen (04/04/2024 12:10 AM REIMBURSEMENT REPRESENTATIVE) Troponin T, 6 hr, 5th gen 158(H) <=15 ng/L 04/04/2024 12:36 AM REIMBURSEMENT REPRESENTATIVE STMA Comment:Consider acute myoca rdial injury 6H Delta % 10 % 04/04/2024 12:36 AM REIMBURSEMENT REPRESENTATIVE STMA 6H Delta Interp Not Changing 04/04/2024 12:36 AM REIMBURSEMENT REPRESENTATIVE STMA Blood 04/04/2024 12:1 0 AM REIMBURSEMENT REPRESENTATIVE 04/04/2024 12:17 AM REIMBURSEMENT REPRESENTATIVE us Theodore Crocker M.D. LAB BLOOD TROPONIN Final R esult Performing Organization Address City/[facility]/[place]UST Co de Phone Number [facility] [place] [address] [place] [address], [facility] STMA [facility] [address] [place] [address] * (ABNORMAL) Troponin T, 2 Hour with 6 Hour Reflex, 5th Gen (04/03/2024 8:18 PM REIMBURSEMENT REPRESENTATIVE) Troponin T, 2 hr, 5th gen 135(H) <=15 ng/L 04/03/2024 8:51 PM REIMBURSEMENT REPRESENTATIVE STMA Comment:Consider acute myoca rdial injury 2H Delta % -6 % 04/03/2024 8:51 PM REIMBURSEMENT REPRESENTATIVE STMA Comment:6 hour collection pe nding. 2H Delta Interp Not Changing 04/03/2024 8:51 PM REIMBURSEMENT REPRESENTATIVE STMA Blood 04/03/2024 8:18 PM REIMBURSEMENT REPRESENTATIVE 04/03/2024 8:27 PM REIMBURSEMENT REPRESENTATIVE Theodore Crocker M.D. LAB BLOOD TROPONIN Final R esult [facility] [place] [address] [place] [address] * (ABNORMAL) Troponin T, Baseline with 2 Hour/6 Hour Reflex Biomarker Panel (04/03/2024 6:04 PM REIMBURSEMENT REPRESENTATIVE) [facility] Troponin T, Baseline, 5th gen 143(H) <=15 ng/L 04/03/2024 6:42 PM REIMBURSEMENT REPRESENTATIVE STMA Comment:Consider acute myoca rdial injury Blood (Blood, Venous) 04/03/2024 6:04 PM REIMBURSEMENT REPRESENTATIVE 04/03/2024 6:14 PM REIMBURSEMENT REPRESENTATIVE Theodore Crocker M.D. LAB BLOOD [place] [address] * (ABNORMAL) CBC with Differential, Blood (04/03/2024 6:04 PM REIMBURSEMENT REPRESENTATIVE) [facility] Hemoglobin 10.7(L) 13.2 - 16.6 g/dL 04/03/2024 6:18 PM REIMBURSEMENT REPRESENTATIVE STMA Hematocrit 32.9(L) 38.3 - 48.6 % 04/03/2024 6:18 PM REIMBURSEMENT REPRESENTATIVE STMA Erythrocytes 3.19(L) 4.35 - 5.65 x10(12)/L 04/03/2024 6:18 PM REIMBURSEMENT REPRESENTATIVE STMA MCV 103.1(H) 78.2 - 97.9 fL 04/03/2024 6:18 PM REIMBURSEMENT REPRESENTATIVE STMA RBC Distrib Width 14.6(H) 11.8 - 14.5 % 04/03/2024 6:18 PM REIMBURSEMENT REPRESENTATIVE STMA Platelet Count 249 135 - 317 x10(9)/L 04/03/2024 6:18 PM REIMBURSEMENT REPRESENTATIVE STMA Leukocytes 12.0(H) 3.4 - 9.6 x10(9)/L 04/03/2024 6:18 PM REIMBURSEMENT REPRESENTATIVE STMA Neutrophils 10.34(H) 1.56 - 6.45 x10(9)/L 04/03/2024 6:18 PM REIMBURSEMENT REPRESENTATIVE DHPM Lymphocytes 0.75(L) 0.95 - 3.07 x10(9)/L 04/03/2024 6:18 PM REIMBURSEMENT REPRESENTATIVE STMA Monocytes 0.49 0.26 - 0.81 x10(9)/L 04/03/2024 6:18 PM REIMBURSEMENT REPRESENTATIVE STMA Eosinophils 0.35 0.03 - 0.48 x10(9)/L 04/03/2024 6:18 PM REIMBURSEMENT REPRESENTATIVE STMA Basophils 0.04 0.01 - 0.08 x10(9)/L 04/03/2024 6:18 PM REIMBURSEMENT REPRESENTATIVE STMA Blood (Blood, Venous) 04/03/2024 6:04 PM REIMBURSEMENT REPRESENTATIVE 04/03/2024 6:14 PM REIMBURSEMENT REPRESENTATIVE us Theodore Crocker M.D. LAB BLOOD ADD-ON Final Res ult Performing Organization Address City/[facility]/ZIP Co de Phone Number [facility] [address] [place] [address], [facility] STMA [facility] [address] [place] [address] DHPM [facility] [address] [place] [address] * (ABNORMAL) Phosphorus Inorganic (04/03/2024 6:04 PM REIMBURSEMENT REPRESENTATIVE) [facility] Phosphorus (Inorganic), P 7.6(H) 2.5 - 4.5 mg/dL 04/03/2024 8:26 PM REIMBURSEMENT REPRESENTATIVE DTL Blood (Blood, Venous) 04/03/2024 6:04 PM REIMBURSEMENT REPRESENTATIVE 04/03/2024 6:14 PM REIMBURSEMENT REPRESENTATIVE us Theodore Crocker M.D. LAB BLOOD ADD-ON Final Res ult Performing Organization Address City/[facility]/ZIP Co de Phone Number [facility] [address] [place] [address], [facility] DTL [facility] [address] [place] [address] * Magnesium (04/03/2024 6:04 PM REIMBURSEMENT REPRESENTATIVE) [facility] Magnesium, P 1.9 1.7 - 2.3 mg/dL 04/03/2024 6:33 PM REIMBURSEMENT REPRESENTATIVE STMA Blood (Blood, Venous) 04/03/2024 6:04 PM REIMBURSEMENT REPRESENTATIVE 04/03/2024 6:14 PM REIMBURSEMENT REPRESENTATIVE us Theodore Crocker M.D. LAB BLOOD ADD-ON Final Res ult [facility] [address] [place] [address], [facility] STMA [facility] [address] [place] [address] * DX Chest Portable 1 View (04/03/2024 5:11 PM REIMBURSEMENT REPRESENTATIVE) Anatomical Region Laterality Modality Chest, Thoracic RST LOS, Tho racic ARZ LOS, Thoracic FLA LOS N/A Digital Radiography Impressions 04/03/2024 5:25 PM REIMBURSEMENT REPRESENTATIVE Since 11/17/2022, new suspected diffuse interstitial pulmonary edema throughout both lungs. Probable trace right pleural effusion. Low lung volumes and lordotic positioning accentuate the cardiac silhouette and pulmonary vascularity. Otherwise no change. Aortic calcification. Degenerative changes of the spine. Narrative 04/03/2024 5:25 PM REIMBURSEMENT REPRESENTATIVE EXAM: DX CHEST PORTABLE 1 VIEW Procedure [...] * ECG 12 Lead (04/03/2024 4:55 PM REIMBURSEMENT REPRESENTATIVE) Only the most recent of2 resultswithin the time period is included. Ventricular Rate ECG/Min 95 BPM MUSE MT Interval 134 ms MUSE QRSD Interval 134 ms MUSE QT Interval 396 ms MUSE QTC Interval 497 ms MUSE P [place] 69 degrees MUSE R Norman -25 degrees MUSE T Wave [place] 75 degrees MUSE 04/03/2024 4:55 PM REIMBURSEMENT REPRESENTATIVE 04/03/2024 5:18 PM REIMBURSEMENT REPRESENTATIVE Impressions MUSE - 04/03/2024 5:18 PM REIMBURSEMENT REPRESENTATIVE Normal sinus rhythm Right bundle branch block [...] Crocker M.D. ECG ORDERABLES Final Resu lt Performing Organization Address City/[facility]/ZIP Co de Phone Number MUSE NA * (ABNORMAL) Hemoglobin (HGB), POCT (04/03/2024 4:40 PM REIMBURSEMENT REPRESENTATIVE) Hemoglobin, POCT, B 10.1(L) 13.2 - 16.6 g/dL 04/03/2024 4:45 PM REIMBURSEMENT REPRESENTATIVE PCSM Blood 04/03/2024 4:40 PM REIMBURSEMENT REPRESENTATIVE 04/03/2024 4:45 PM REIMBURSEMENT REPRESENTATIVE us Unknown Provider LAB POCT ORDERABLES - DEVICE Fi nal Result Performing Organization Address City/[facility]/ZIP Co de Phone Number POC [facility] [address] [place] [address], [facility] POC [address] [place] [address] * (ABNORMAL) Hemoglobin A1c (04/03/2024 1:19 PM REIMBURSEMENT REPRESENTATIVE) Hemoglobin A1c, B 7.0(H) 4.0 - 5.6 % 04/03/2024 2:34 PM REIMBURSEMENT REPRESENTATIVE DTL Comment: Hemoglobin A1c values greater than or equal to 6.5 percent are diagnostic for diabetes mellitus. Diagnosis should be confirmed by repeat testing. In diabetic patients, HbA1c goals should be discussed with healthcare provider. Blood (Blood, Venous) 04/03/2024 1:19 PM REIMBURSEMENT REPRESENTATIVE 04/03/2024 2:17 PM REIMBURSEMENT REPRESENTATIVE Cristal Pfeiffer D.O. LAB BLOOD ADD-ON Final Result Performing Organization Address [facility]/[place] Co de Phone Number [facility] [address] DTL [facility] [address] [place] [address] * Glucose, Venous, Blood (04/03/2024 1:18 PM REIMBURSEMENT REPRESENTATIVE) Glucose, Venous, B 138 70 - 140 mg/dL 04/03/2024 1:50 PM REIMBURSEMENT REPRESENTATIVE STMA Blood (Blood, Venous) 04/03/2024 1:18 PM REIMBURSEMENT REPRESENTATIVE 04/03/2024 1:24 PM REIMBURSEMENT REPRESENTATIVE Stacy Guerrero APRN, CRNA, D.N.P. LAB BLO OD ADD-ON Final Result Performing Organization Address [facility]/[place] Co de Phone Number [facility] [address] STMA [facility] [address] [place] [address] * Potassium, Venous, Blood (04/03/2024 1:18 PM REIMBURSEMENT REPRESENTATIVE) Potassium, Venous, B 4.3 3.6 - 5.2 mmol/L 04/03/2024 1:54 PM REIMBURSEMENT REPRESENTATIVE STMA Blood (Blood, Venous) 04/03/2024 1:18 PM REIMBURSEMENT REPRESENTATIVE 04/03/2024 1:24 PM REIMBURSEMENT REPRESENTATIVE Stacy Guerrero APRN, CRNA, D.N.P. LAB BLO OD NON ADD-ON Final Result Performing Organization Address [facility]/[place] Co de Phone Number [facility] [address] [place] [address], [facility] [address] [place] [address] * Calcium, Ionized, Venous, Blood (04/03/2024 1:18 PM REIMBURSEMENT REPRESENTATIVE) Calcium, Ionized, Venous, B 4.67 4.65 - 5.30 mg/dL 04/03/2024 1:54 PM REIMBURSEMENT REPRESENTATIVE [facility] Blood (Blood, Venous) 04/03/2024 1:18 PM REIMBURSEMENT REPRESENTATIVE 04/03/2024 1:24 PM REIMBURSEMENT REPRESENTATIVE Stacy Guerrero APRN, CRNA, D.N.P. LAB BLO OD NON ADD-ON Final Result [facility] [address] [place] [address], [facility] [address] [place] [address] * Lactate, Venous, Blood (04/03/2024 1:18 PM REIMBURSEMENT REPRESENTATIVE) Lactate, Venous, B 1.5 0.5 - 2.2 mmol/L 04/03/2024 1:50 PM REIMBURSEMENT REPRESENTATIVE STMA Blood (Blood, Venous) 04/03/2024 1:18 PM REIMBURSEMENT REPRESENTATIVE 04/03/2024 1:24 PM REIMBURSEMENT REPRESENTATIVE Stacy Guerrero APRN, CRNA, D.N.P. LAB BLO OD ADD-ON Final Result [facility] [address] [place] [address], [facility] [address] [place] [address] * Sodium, Venous, Blood (04/03/2024 1:18 PM REIMBURSEMENT REPRESENTATIVE) Sodium, Venous, B 135 135 - 145 mmol/L 04/03/2024 1:50 PM REIMBURSEMENT REPRESENTATIVE STMA Blood (Blood, Venous) 04/03/2024 1:18 PM REIMBURSEMENT REPRESENTATIVE 04/03/2024 1:24 PM REIMBURSEMENT REPRESENTATIVE Stacy Guerrero APRN, CRNA, D.N.P. LAB BLO OD ADD-ON Final Result Performing Organization Address City/[facility]/[place] Co de Phone Number [facility] [address] [place] [address], [facility] [address] [place] [address] * Patient Status (04/03/2024 1:18 PM REIMBURSEMENT REPRESENTATIVE) Pathologist [facility] FIO2 0.21 0.21=AIR 04/03/2024 1:24 PM REIMBURSEMENT REPRESENTATIVE STMA Spont. breaths/min 20 04/03/2024 1:24 PM REIMBURSEMENT REPRESENTATIVE STMA Blood 04/03/2024 1:18 PM REIMBURSEMENT REPRESENTATIVE 04/03/2024 1:24 PM REIMBURSEMENT REPRESENTATIVE Stacy Guerrero APRN, CRNA, D.N.P. LAB BLO OD NON ADD-ON Final Result Performing Organization Address [facility]/[place] Co de Phone Number [facility] [address] [place] [address], [facility] [address] [place] [address] * (ABNORMAL) Blood Gas with Coox, Venous (04/03/2024 1:18 PM REIMBURSEMENT REPRESENTATIVE) pO2, Venous, B 50 Not applicable mm Hg 04/03/2024 1:26 PM REIMBURSEMENT REPRESENTATIVE STMA pCO2, Venous, B 44 41 - 51 mm Hg 04/03/2024 1:26 PM REIMBURSEMENT REPRESENTATIVE STMA pH, Venous, B 7.32 7.32 - 7.43 pH 024 1:26 PM REIMBURSEMENT REPRESENTATIVE STMA Base Excess, Venous, B -4 Not applicable mmol/L 04/03/2024 1:26 PM REIMBURSEMENT REPRESENTATIVE STMA HCO3, Venous, B 22 Not applicable mmol/L 04/03/2024 1:26 PM REIMBURSEMENT REPRESENTATIVE STMA Hemoglobin, Venous, B 11.4(L) 13.2 - 16.6 g/dL 04/03/2024 1:26 PM REIMBURSEMENT REPRESENTATIVE STMA O2Hb, Venous, B 75.2 Not applicable % 04/03/2024 1:26 PM REIMBURSEMENT REPRESENTATIVE STMA COHb, Venous, B <1.0 <3.0 % 04/03/2024 1:26 PM REIMBURSEMENT REPRESENTATIVE STMA MetHb, Venous, B 2.4(H) <1.5 % 04/03/2024 1:26 PM REIMBURSEMENT REPRESENTATIVE STMA CtO2, Venous, B 12.1 Not Applicable vol % 04/03/2024 1:26 PM REIMBURSEMENT REPRESENTATIVE STMA Sample Site, Venous, B Venipunct 04/03/2024 1:24 PM REIMBURSEMENT REPRESENTATIVE STMA Blood (Blood, Venous) 04/03/2024 1:18 PM REIMBURSEMENT REPRESENTATIVE 04/03/2024 1:24 PM REIMBURSEMENT REPRESENTATIVE us Stacy Guerrero APRN, CRNA, D.N.P. LAB BLO OD NON ADD-ON Final Result Performing Organization Address City/[facility]/ZIP Co de Phone Number [facility] [place] [address] [place] [address], [facility] STMA [facility] [address] [place] [address] * Glucose, POCT (04/03/2024 1:13 PM REIMBURSEMENT REPRESENTATIVE) [facility] Glucose, POCT, B 133 70 - 140 mg/dL 04/03/2024 1:16 PM REIMBURSEMENT REPRESENTATIVE PCLX Comment: Glucose results collected from venous catheters may be falsely elevated. Site Venline 04/03/2024 1:16 PM REIMBURSEMENT REPRESENTATIVE PCLX Blood 04/03/2024 1:13 PM REIMBURSEMENT REPRESENTATIVE 04/03/2024 1:16 PM REIMBURSEMENT REPRESENTATIVE us Unknown Provider LAB POCT ORDERABLES-MANUAL Mary l Result POC [facility] [address] [place] [address], [facility] PCLX [facility] POC [address] [place] [address] * Misc Research, Blood (04/03/2024 11:20 AM REIMBURSEMENT REPRESENTATIVE) [facility] Number of Specimens 5 04/03/2024 11:20 AM REIMBURSEMENT REPRESENTATIVE HSS Blood (Blood, Venous) 04/03/2024 11:20 AM REIMBURSEMENT REPRESENTATIVE 04/03/2024 11:20 AM REIMBURSEMENT REPRESENTATIVE Kemar Reyes LAB RESEARCH NO RESULT ROUT ING Final Result Performing Organization Address City/[facility]/ZIP Co de Phone Number [facility] [place] [address] [place] [address], [facility] [address] [place] [address] * Leg-Vascular Image Exam (03/12/2024 7:10 AM [...] PROCE DURES Final Result Performing Organization Address [facility] Co de Phone Number IIMS NA * [...] in the mid left SFA (series 5, [id number]) over short segment the level of the [...] POCT ORDERABLES - DEVICE Fi nal Result [facility] PERFORMING LABS [address] [place] [address], [facility] PCDT [facility] POC [address] [place] [address] * DX Foot Bilateral 3+ Views (03/07/2024 [...] stenoses within the stents and in the [place] distal SFA below the stents. 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 Patent mid SFA stents with new stenosis at the proximal end point. Worsening stenosis in the [place] distal SFA. Similar stenoses in the popliteal [...] femoral: Interval development of stenosis within the [place] SFA below the stents. 451 cm/s today, [...] femoral: Focally elevated Doppler velocities within the [place] distal SFA (128 cm/s today, previously 100 [...] New stenoses within thestents and in the [place] distal SFA below the stents. LEFT: Unchanged stenosis of the [place] proximal superficial femoralartery. Patent mid SFA stents with new stenosis at the proximal end point.Worsening stenosis in the [place] distal SFA. Similar stenoses in thepopliteal artery and tibioperoneal trunk. Severely dampened Doppler waveforms at the ankle. us Jayjay Pak P.A.-C. IMSophie US PROCEDURES Final Result * US Aorta Iliac Arteries Bilateral with Doppler (03/05/2024 12:52 PM CDT) Anatomical Region Laterality Modality Abdomen, Pelvis, Ultrasound RST LOS, Ultrasound ARZ LOS, Ultrasound FLA LOS, Procedural, Vascular Interventional NWWI LOS Bilateral Ultrasound Impressions 03/06/2024 12:29 PM CDT 1. Patent bilateral iliac artery stents with worsening stenoses on the left. 2. The previously seen [place] right external iliac artery stenosis is not [...] visualized. Diffusely elevated Doppler velocities within the [place] external iliac artery without obvious focal stenosis. [...] definitely visualized. Diffusely elevatedDoppler velocities within the [place] external iliac artery without obviousfocal stenosis. LEFT: [...] stenoses on theleft. 2. 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 us Jayjay Pak P.A.-C. CV VASCULAR PROCEDURES F inal Result * HCV Ab Scrn w/Reflex to HCV PCR, Serum (02/17/2023 9:35 AM CDT) HCV Ab Screen, S Negative Negative 02/18/20 3:35 PM CDT TO Comment: Biotin has been identified by the fuel conversion technician as a potential interfering substance. Higher [...] 3:35 PM CDT Specimen Information: Specimen ID: [id number] Specimen Type: Blood Specimen Collection Start Date: 02/17/2023 9:35 AM Specimen Received Date: 02/17/2023 2:20 PM Specimen ID: [id number] Specimen Type: Blood Specimen Collection Start Date: 02/17/2023 9:35 AM Specimen Received Date: 02/17/2023 2:16 PM us Estiven He Jr.O. LAB MICROBIOLOGY - B LOOD ORDERABLES Final Result [facility] [address] [place] [address], [facility] [place] [address] [place] [address] * (ABNORMAL) Albumin, Random, Urine (02/17/2023 9:26 AM CDT) Microalbumin 895.0 mg/L 02/17/2023 1:53 PM CDT OWAT Creatinine 42 mg/dL 02/17/2023 12:50 PM CDT OW[facility] Albumin/Creatinin e Ratio 2131(H) <17 mg/g 02/17/2023 1:53 PM CDT [facility] Urine (Urine, Voided) 02/17/2023 9:26 AM CDT 02/17/2023 11:00 AM CDT us Haseeb Menon Jr. D.O. LAB URINE ORDERABLES Final Result [facility] [address] [place] [address], [facility] OWAT [facility] [place] [address] [place] [address] * (ABNORMAL) Lipid Panel (02/10/2021 8:27 AM [...] Reyes LAB BLOOD ADD-ON Final Resu lt [facility] [place] [address] [place] [address], [facility] DTL [facility] [address] [place] [address] * CT Abdomen Pelvis Angiogram with IV [...]
--- OUTSIDE RECORDS SUMMARY | 2024-04-24 10:01 | XMS_ITS | Encounter Summary ---
Author Organization [facility] Address [address] [place] [address] Care Team Providers Care Tank Assembler Name Role Phone Elsewhere, Pcp Primary Care Provider Unavailabl e Reason for Visit * Reason Onset Date Comments Post surgery Plavix prescription 04/06/2024 Encounter Details Date Type Department Care Team (Latest Contact Info) Description 04/06/2024 Clinical Communication Division of Vascular and Endovascular Surgery in [place], [place] [address] [place] [address] Kemar Velásquez M.B.B.S. [address] [place] [address] Post surgery Plavix prescription Social History Tobacco Use Types Packs/Day Years Used Date Smoking Tobacco: Former Cigarettes 1 38.9 0 05/16/1983 - 04/2022 Smokeless Tobacco: Never Alcohol Use Standard Drinks/Week Comments Not Currently 0 (1 standard drink = 0.6 oz pur e alcohol) [facility] Utilities Answer Date Recorded In the past 12 months has [facility] [employer], gas, oil, or water [employer] threatened to shut off services in your [...] How often do you attend adventist or taoist serv ices? Never 03/24/2021 Do [...] 0 10/20/2018 [facility] of Occupat ional Health - Occupational Stress [...] have a [facility] place to live 04/04/2024 Education Answer Date Recorded What is the highest level of school you have completed or the highest degree you have received? Some college, no degree 03/24/2021 Sex and Gender Information Value Date Recorded Sex Assigned at Male 03/24/2021 8:13 PM EXHAUST EQUIPMENT OPERATOR Legal Sex Male 12:04 AM EXHAUST EQUIPMENT OPERATOR Gender Identity Male 08/31/2019 2:40 PM CDT Sexual Orientation Straight 08/31/2019 2: 40 PM CDT documented as of this encounter Miscellaneous Notes * Telephone Encounter - Mallory Pratt - 04/06/2024 10:45 AM CST Please return a call to Mrs. Walton regarding post surgery they are not finding a Plavix prescription for Mr. Walton. Mallory Pedroza UST EQUIPMENT OPERATOR documented in this encounter Plan of Treatment Upcoming Encounters Date Type Department Care Team (Late st Contact Info) Description 05/10/2024 8:30 AM EXHAUST EQUIPMENT OPERATOR Appointment Department of Radiology, [facility], in [place], [place] [address] [place] [address] Kemar Velásquez M.B.B.S. [address] [place] [phone] Discharge Disposition: Home or Self Care 05/10/2024 9:30 AM EXHAUST EQUIPMENT OPERATOR Appointment Department of Vascular Medicine in [place], [place] [address] [place] [address] Kemar Velásquez M.B.B.S. [address] [place] [phone] documented as of this encounter Visit Diagnoses Not on filedocumented in this encounter Additional Health Concerns Assessment Noted Time PHQ-9 Depression Total Score: 3 01/04/20 18 10:38 AM CDT documented as of this encounter Care Teams Tank Assembler Relationship Specialty Start Date End Date Elsewhere, Pcp PCP - General Family Medicine 01/29/20 documented as of this encounter
--- OUTSIDE RECORDS SUMMARY | 2024-04-24 10:01 | XMS_ITS | Encounter Summary ---
Author Organization [facility] Address [address] [place] [address] Care Team Providers Care Car Head Liner Installer Name Role Phone Elsewhere, Pcp Primary Care Provider Unavailabl e Encounter Details Date Type Department Care Team (Late st Contact Info) Description 04/06/2024 Orders Only Division of Vascular and Endovascular Surgery in [place], [place] [address] [place] [phone] Rose Lagos, JULIÁN, C.N.P. [address] [place] [phone] Social History Tobacco Use Types Packs/Day Years Used Date Smoking Tobacco: Former Cigarettes 1 38.9 0 05/16/1983 - 04/2022 Smokeless Tobacco: Never Alcohol Use Standard Drinks/Week Comments Not Currently 0 (1 standard drink = 0.6 oz pur e alcohol) [facility] Utilities Answer Date Recorded In the past 12 months has [facility] [employer], [employer], oil, or water [employer] threatened to shut off services in your [...] your living situation today? I have a [facility] place to live 04/04/2024 Education Answer Date Recorded What is the highest level of school you have completed or the highest degree you have received? Some college, no degree 03/24/2021 Sex and Gender Information Value Date Recorded Sex Assigned at Male 03/24/2021 8:13 PM INTERACTIVE GRAPHIC DESIGNER Legal Sex Male 12:04 AM INTERACTIVE GRAPHIC DESIGNER Gender Identity Male 08/31/2019 2:40 PM CDT Sexual Orientation Straight 08/31/2019 2: 40 PM CDT documented as of this encounter Plan of Treatment Upcoming Encounters Date Type Department Care Team (Late st Contact Info) Description 05/10/2024 8:30 AM INTERACTIVE GRAPHIC DESIGNER Appointment Department of Radiology, [facility], in [place], [place] [address] [place] [address] Kemar Velásquez M.B.B.S. [address] [place] [phone] Discharge Disposition: Home or Self Care 05/10/2024 9:30 AM INTERACTIVE GRAPHIC DESIGNER Appointment Department of Vascular Medicine in [place], [place] [address] [place] [address] Kemar Velásquez M.B.B.S. [address] [place] [address] documented as of this encounter Visit Diagnoses Not on filedocumented in this encounter Additional Health Concerns Assessment Noted Time PHQ-9 Depression Total Score: 3 01/04/20 18 10:38 AM CDT documented as of this encounter Care Teams Car Head Liner Installer Relationship Specialty Start Date End Date Elsewhere, Pcp PCP - General Family Medicine 01/29/20 documented as of this encounter
--- OUTSIDE RECORDS SUMMARY | 2024-04-24 10:01 | XMS_ITS | Clinical Summary ---
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 For routine questions regarding patient records, call [phone] during business hours, M-F 8:00 AM - 5:00 PM Central Time. Record requests for emergency care only can be directed to [phone] at any time.[facility] Allergies Active Allergy Reactions Criticality Noted Date Comments Gabapentin Other (see comments) Medium 08/04/2020 Dizzy, memory issue Morphine Itching,Rash Medium 02/14/2012 itchy Pregabalin Anaphylaxis High 02/16/2017 swell Tkmhuie-Kbv-Qst Reductase Inhibitors Myalgia Low 02/13/2014 Medications DULoxetine [...] 04/21/2018 Restless Leg Syndrome 01/12/2018 Atherosclerosis Of [place] Ar teries Of Extremities With Intermittent Claudication Right Leg 08/08/2017 Hyperlipidemia 07/22/2017 Ulcer Leg Left 04/19/2017 Ulcer Toe Left 04/19/2017 Atherosclerosis Of [place] Ar teries Of Left Leg With Ulceration Of Unspecified Site 04/19/2017 Peripheral Arterial Disease 02/16/2017 Hypertension NOS 02/16/2017 Hypertensive Chronic Kidney Disease With Stage 1 Through Stage 4 Chronic Kidney Disease, Or Unspecified Chronic Kidney Disease 09/23/2016 Overview (10/05/2016): Hypertension (HTN) And CKD Stage 1-4 Detention 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 04/06/2024 Orders Only Division of Vascular and Endovascular Surgery in [place], [place] [address] [place] [phone] Rose Lagos APRN, C.NRinku. 04/06/2024 Clinical Communication Division of Vascular and Endovascular Surgery in [place], [place] [address] [place] [phone] Kemar Velásquez M.B.B.S. Post surgery Plavix prescription 04/04/2024 7:46 AM HEAD HOST/HOSTESS Anesthesia Event [facility] OR [address] [place] [phone] Yon Burnett M.D. 04/04/2024 7:15 AM HEAD HOST/HOSTESS - 04/04/2024 10:59 AM HEAD HOST/HOSTESS Surgery [facility] OR [address] [place] [phone] Kemar Velásquez M.B.B.S. IR ENDOVASCULAR ANGIOPLASTY, DCB LOWER EXTREMITY, left femoral access. 04/04/2024 Clinical Communication Division of Vascular and Endovascular Surgery in [place], [place] [address] [place] [phone] Kemar Velásquez M.B.B.S. Post Hospital Follow-up 04/03/2024 1:44 PM HEAD HOST/HOSTESS Anesthesia Event [facility] OR [address] [place] [phone] Vida Rodriguez M.D., Ph.D. 04/03/2024 12:30 PM HEAD HOST/HOSTESS - 04/03/2024 4:14 PM HEAD HOST/HOSTESS Surgery [facility] OR [address] [place] [phone] Kemar Velásquez M.B.B.S. IR ENDOVASCULAR ANGIOPLASTY STENT LOWER EXTREMITY, right femoral access. 04/03/2024 10:41 AM HEAD HOST/HOSTESS - 04/04/2024 6:07 PM HEAD HOST/HOSTESS Hospital Encounter [facility], [facility], [facility], Eighth Floor [address] [place] [phone] Kemar Velásquez M.B.B.S. 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 03/13/2024 Documentation Division of Nephrology and Hypertension in [place], [place] [address] [place] [phone] Haseeb Menon Jr., D.O. 03/13/2024 Orders Only Division of Nephrology and Hypertension in [place], [place] [address] [place] [phone] Haseeb Menon Jr., D.O. 03/12/2024 10:40 AM CDT Comprehensive Visit Division of Vascular and Endovascular Surgery in [place], [place] [address] [place] [address] Kemar Velásquez M.B.B.S. 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 Wound Foot [...] PM CDT Hospital Encounter Department of Radiology, [facility], in [place], [place] [address] [place] [address] Jayjay Pak P.A.-C. Follow Up Examination Status Post Surgery; Peripheral Arterial Disease (HCC); Wound Foot Open Subsequent Left; Wound Foot Open Subsequent Right Discharge Disposition: Home or Self Care 03/09/2024 2:02 PM CDT - 03/09/2024 6:24 PM CDT Hospital Encounter Department of Radiology, [facility], in [place], [place] [address] [place] [address] Jayjay Pak P.A.-C. Follow Up Examination Status Post Surgery; Peripheral Arterial Disease (HCC); Wound Foot Open Subsequent Left; Wound Foot Open Subsequent Right Discharge Disposition: Home or Self Care 03/07/2024 10:12 AM CDT - 03/07/2024 11:59 PM CDT Hospital Encounter Department of Radiology in [place], [place] [address] [phone] Jayjay Pak P.A.-C. Peripheral Arterial Disease (HCC); Wound Foot Open Subsequent Left; Wound Foot Open Subsequent Right Discharge Disposition: Home or Self Care 03/07/2024 Orders Only Department of Vascular Medicine in [place], [place] [address] [place] [address] Jayjay Pak P.A.-CFei 03/06/2024 Orders Only Department of Vascular Medicine in [place], [place] [address] [place] [phone] Jayjay Pak P.A.-CFei Peripheral Arterial Disease (HCC) (Primary Dx); Wound Foot Open Subsequent Left; Wound Foot Open Subsequent Right 03/05/2024 3:00 PM CDT Office Visit Department of Vascular Medicine in [place], [place] [address] [place] [address] Jayjay Pak P.AFei-Jennifer Follow Up Examination Status Post Surgery (Primary Dx); Peripheral Arterial Disease (HCC); Wound Foot Open Subsequent Left; Wound Foot Open Subsequent Right 03/05/2024 11:19 AM CDT - 03/05/2024 11:59 PM CDT Hospital Encounter Department of Radiology, [facility], [place], [place] [address] [place] [phone] Jayjay Pak P.A.-C. Follow Up Examination Status Post Surgery; Peripheral Arterial Disease (HCC) Discharge Disposition: Home or Self Care 03/05/2024 11:00 AM CDT - 03/05/2024 11:18 AM CDT Hospital Encounter Department of Radiology, [facility], in [place], [place] [address] [place] [phone] Jayjay Pak P.A.-C. Follow Up Examination Status Post Surgery; Peripheral Arterial Disease (HCC) Discharge Disposition: Home or Self Care 03/05/2024 7:30 AM CDT - 03/05/2024 10:59 AM CDT Hospital Encounter Department of Vascular Medicine in [place], [place] [address] [place] [phone] Jayjay Pak P.A.-C. Follow Up Examination Status Post Surgery; Peripheral Arterial Disease (HCC) Discharge Disposition: Home or Self Care 02/23/2024 Refill Division of Nephrology and Hypertension in [address] [phone] Onesimo Rodriguez M.D. Med Refill 02/11/2024 Refill Division of Nephrology and Hypertension in [address] [phone] Haseeb Menon Jr., D.O. Med Refill from [...] drink = 0.6 oz pur e alcohol) [facility] Utilities Answer Date Recorded In the past 12 months has e [email or web address], gas, oil, or water [employer] threatened to shut off services in your [...] How often do you attend shinto or episcopalian serv ices? Never 03/24/2021 Do [...] Answer Date Recorded PHQ-2 Score 0 10/20/2018 [facility] of Occupat ional Health - Occupational Stress [...] a [facility] place to live 04/04/2024 Education Answer Date Recorded What is the highest level of school you have completed or the highest degree you have received? Some college, no degree 03/24/2021 Sex and Gender Information Value Date Recorded Sex Assigned at Male 03/24/2021 8:13 PM HEAD HOST/HOSTESS Legal Sex Male 12:04 AM HEAD HOST/HOSTESS Gender Identity Male 08/31/2019 2:40 PM CDT Sexual Orientation Straight 08/31/2019 2: 40 PM CDT Last Filed Vital Signs Vital Sign Reading Time Taken Comments Blood Pressure 175/57 04/04/2024 5:18 PM HEAD HOST/HOSTESS Pulse 79 04/04/2024 4:30 PM HEAD HOST/HOSTESS Temperature 36.6 C (97.9 F) 04/04/2024 4:30 PM HEAD HOST/HOSTESS Respiratory Rate 19 04/04/2024 4:30 PM HEAD HOST/HOSTESS Oxygen Saturation 97% 04/04/2024 4:30 PM HEAD HOST/HOSTESS Inhaled Oxygen Concentration - - Weight 87.1 kg (192 lb) 04/03/2024 11:11 AM HEAD HOST/HOSTESS Height 175.3 cm (5' 9) 04/03/2024 11:11 AM HEAD HOST/HOSTESS Body Mass Index 28.35 04/03/2024 11:11 AM HEAD HOST/HOSTESS Plan of Treatment Upcoming Encounters Date Type Department Care Team (Late st Contact Info) Description 05/10/2024 8:30 AM HEAD HOST/HOSTESS Appointment Department of Radiology, [facility], in [place], [place] [address] [place] [address] Kemar Velásquez M.B.B.S. [address] [place] [address] Discharge Disposition: Home or Self Care 05/10/2024 9:30 AM HEAD HOST/HOSTESS Appointment Department of Vascular Medicine in [place], [place] [address] [place] [address] Kemar Velásquez M.B.B.S. [address] [place] [phone] Health Maintenance Due Date Last Done Comments [...] Depression Monitoring (PHQ-9 for quality tracking) 05/16/2023 COVID-19 Vaccine ( season) 2024 10/27/2021, 04/02/2021, 08/09/2020, Additional history exists Urine Albumin 02/18/2024 02/17/2023, 08/15, 11/04/2021, Additional history exists Office Visit for Blood Pressure Check / Re-check 06/12/2024 03/12/2024 Hemoglobin A1C 10/01/2024 04/03/2024, 11/13, 09/06/2022, Additional history exists Creatinine Level (Kidney Function Test) 04/04/2025 04/04/2024, 04/03/2024, 04/03/2024, Additional history exists Potassium Level 04/04/2025 04/04/2024, 03/16, 04/03/2024, Additional history exists Sodium Level 04/04/2025 04/04/2024, 03/16, 04/03/2024, Additional history exists Lipid (Cholesterol) Screening 02/10/2026 02/10/2021, 07/26/2017, 09/20/2016, Additional history exists DTaP,Tdap,and Td Vaccines (3 - Td or Tdap) 08/16/2026 08/16/2016, 08/16/2016, 03/24/2007, Additional history exists Colonoscopy 05/12/2032 05/12/2022, 08/14 (Performed elsewhere) Colorectal Cancer Screening 05/12/2032 Pneumococcal vaccine (65+ years) Completed 04/24/2018, 04/11/2017, 02/14/2012, Additional history exists Colonoscopy Discontinued 05/12/2022, 08/14 (Performed elsewhere) Colorectal Cancer Surveillance Discontinued Abdominal Aortic Aneurysm (AAA) Screen Completed 05/27/2022, 05/27/2022, 03/15/2018, Additional history exists Hepatitis C Screening Completed 02/17/2023 , 02/14/2023, 11/17/2022 Influenza Vaccine Completed 02/27/2024, , 03/17/2022, Additional history exists Fall Risk Screen (Annual) Completed 04/03/2024 CT Colonography Discontinued IPV Vaccines Aged Out No longer eligi ble based on patient's age to complete this topic Medical Devices Implanted Type 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 Body Location - Other. Vascular. Device Status Text - [id number]. Ocular Lens-10/29/2007 Implanted:10/28 by Nato Dougherty APRN, C.N.P., R.N. 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 Device Status Text - [id number]. Stent Vbx [id number] - Flores [id number] Implanted:Qty: 1 on 03/04/2017 Vascular Graft Other/Legacy - See Implant Description [place] Description:Device Manufactu rer - [employer] [place] [employer] Body Location - Other. n/a. Device Status Text - [id number]. Stent Vbx [id number] - Flores [id number] Implanted:Qty: 1 on 03/04/2017 Vascular Graft Other/Legacy - See Implant Description [place] Description:Device Manufactu rer - [employer] [place] [employer] Body Location - Other. n/a. Device Status Text - [id number]. Stent Zilver Ptx 6mm X 40mm - Flores [id number] Implanted:Qty: 1 on 04/04/2017 Vascular Stent Other/Legacy - See Implant Description [place] Description:Device Manufactu Dekko - [place]. Body Location - Other. Left. Device Status Text - [id number]. Stent Zilver Ptx 6mm X 60mm - Flores [id number] Implanted:Qty: 1 on 04/04/2017 Vascular Stent Other/Legacy - See Implant Description [place] Description:Device Manufactu Dekko - [place]con. Body Location - Other. Left. Device Status Text - [id number]. Stent Zilver Ptx 6mm X 80mm - Flores [id number] Implanted:Qty: 1 on 08/31/2017 Vascular Stent Right: Other/Legacy - See Implant Description [place] / [id number] / Description:Device Manufactu [employer]. Body Location - Right. Device Status Text - [id number]. Stent Zilver Ptx 6mm X 40mm - Flores [id number] Implanted:Qty: 1 on 08/31/2017 Vascular Stent Right: Other/Legacy - See Implant Description [place] / [id number] / Description:Device Manufactu rer - [place]. Body Location - Right. Device Status Text - [id number]. Stnt Innova Otw [id number] - [id number] Implanted:Qty: 1 on 04/18/2018 by Kemar Velásquez M.B.B.S. at [facility] Vascular Stent [employer] 05/23/2020 [id number] / / [id number] Stnt Innova Otw [id number] - [id number] Implanted:Qty: 1 on 05/11/2019 by Kemar Velásquez M.B.B.S. 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) ACT, POCT, B Routine 04/04/2024 8:47 AM HEAD HOST/HOSTESS ANGIOPLASTY/STENT ENDOVASCULAR FEMORAL AND/OR POPLITEAL AND/OR TIBIAL ARTERY 04/04/2024 7:16 AM HEAD HOST/HOSTESS Peripheral Arterial Disease (HCC) 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) TROPONIN T, 5TH GEN, P Timed 04/04/2024 4:22 AM HEAD HOST/HOSTESS BASIC METABOLIC PANEL, S/P Timed 04/04/2024 4:22 AM HEAD HOST/HOSTESS CBC WITHOUT DIFFERENTIAL, B Timed 04/04/2024 4:22 AM HEAD HOST/HOSTESS TROPONIN T, 6H, 5TH GEN, P Timed 04/04/2024 12:10 AM HEAD HOST/HOSTESS TROPONIN T, 2H/6H REFLEX, 5TH GEN, P Timed 04/03/2024 8:18 PM HEAD HOST/HOSTESS ADULT OXYGEN THERAPY Routine 04/03/2024 6:43 PM HEAD HOST/HOSTESS ADULT OXYGEN THERAPY Routine 04/03/2024 6:43 PM HEAD HOST/HOSTESS TROPONIN T, BASELINE, 5TH GEN, P STAT 04/03/2024 6:04 PM HEAD HOST/HOSTESS PHOSPHORUS (INORGANIC), S STAT 04/03/2024 6:04 PM HEAD HOST/HOSTESS MAGNESIUM, S STAT 04/03/2024 6:04 PM HEAD HOST/HOSTESS BASIC METABOLIC PANEL, S/P STAT 04/03/2024 6:04 PM HEAD HOST/HOSTESS CBC WITH DIFFERENTIAL, B STAT 04/03/2024 6:04 PM HEAD HOST/HOSTESS IR IMAGING RAD - Routine (most inpatients and all outpatients) 04/03/2024 5:17 PM HEAD HOST/HOSTESS Peripheral Arterial Disease (HCC) 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) DX CHEST PORTABLE 1 VIEW RAD - Emergent (Fastest; for the most critically ill patients) 04/03/2024 5:11 PM HEAD HOST/HOSTESS ECG STAT 04/03/2024 4:55 PM HEAD HOST/HOSTESS ACT, POCT, B Routine 04/03/2024 4:43 PM HEAD HOST/HOSTESS HEMOGLOBIN (HGB), POCT, B Routine 04/03/2024 4:40 PM HEAD HOST/HOSTESS CONTINUOUS CYCLING PERITONEAL DIALYSIS (CCPD) Routine 04/03/2024 4:26 PM HEAD HOST/HOSTESS ACT, POCT, B Routine 04/03/2024 3:20 PM HEAD HOST/HOSTESS ANGIOPLASTY/STENT ENDOVASCULAR FEMORAL AND/OR POPLITEAL AND/OR TIBIAL ARTERY 04/03/2024 1:21 PM HEAD HOST/HOSTESS Peripheral Arterial Disease (HCC) 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) 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 BASIC METABOLIC PANEL, S/P STAT 04/03/2024 1:19 PM HEAD HOST/HOSTESS HEMOGLOBIN A1C, B STAT 04/03/2024 1:1 9 PM HEAD HOST/HOSTESS PATIENT STATUS STAT 04/03/2024 1:18 PM HEAD HOST/HOSTESS LACTATE, VENOUS, B STAT 04/03/2024 1: 18 PM HEAD HOST/HOSTESS GLUCOSE, VENOUS, B STAT 04/03/2024 1: 18 PM HEAD HOST/HOSTESS POTASSIUM, VENOUS, B STAT 04/03/2024 1:18 PM HEAD HOST/HOSTESS SODIUM, VENOUS, B STAT 04/03/2024 1:1 8 PM HEAD HOST/HOSTESS CALCIUM, IONIZED, VENOUS, B STAT 04/03/2024 1:18 PM HEAD HOST/HOSTESS VENOUS BLOOD GAS W/COOX, B STAT 04/03/2024 1:18 PM HEAD HOST/HOSTESS GLUCOSE POCT, B Routine 04/03/2024 1:13 PM HEAD HOST/HOSTESS MISC RESEARCH ORDER, B Routine 04/03/2024 11:20 AM HEAD HOST/HOSTESS VASCULAR IMAGE EXAM Routine 03/12/2024 7:10 AM [...] Results * IR IMAGING (04/04/2024 9:42 AM HEAD HOST/HOSTESS) Only the most recent of2 resultswithin the time period is included. Anatomical Region Laterality Modality N/A Other Narrative 04/05/2024 7:12 AM HEAD HOST/HOSTESS Performed by surgeon - see Op Note for result. us Kemar Reyes IMG IR PROCEDURES Final Res ult * (ABNORMAL) ACT (Activated Clotting Time), POCT (04/04/2024 8:47 AM HEAD HOST/HOSTESS) Only the most recent of3 resultswithin the time period is included. Activated Clotting Time 262(H) 82 - 152 sec 04/04/2024 8:48 AM HEAD HOST/HOSTESS PCLX 04/04/2024 8:47 AM HEAD HOST/HOSTESS 04/04/2024 8:49 AM HEAD HOST/HOSTESS us Unknown Provider LAB POCT ORDERABLES - DEVICE Fi nal Result POC [facility] [address] [place] [address], [place] PCLX [facility] POC [address] [place] [address] * (ABNORMAL) CBC without Differential (04/04/2024 4:22 AM HEAD HOST/HOSTESS) Hemoglobin 10.5(L) 13.2 - 16.6 g/dL 04/04/2024 5:33 AM HEAD HOST/HOSTESS DHPM Hematocrit 31.7(L) 38.3 - 48.6 % 04/04/2024 5:33 AM HEAD HOST/HOSTESS DHPM Erythrocytes 3.09(L) 4.35 - 5.65 x10(12)/L 04/04/2024 5:33 AM HEAD HOST/HOSTESS DHPM MCV 102.6(H) 78.2 - 97.9 fL 04/04/2024 5:33 AM HEAD HOST/HOSTESS DHPM RBC Distrib Width 14.6(H) 11.8 - 14.5 % 04/04/2024 5:33 AM HEAD HOST/HOSTESS DHPM Platelet Count 236 135 - 317 x10(9)/L 04/04/2024 5:33 AM HEAD HOST/HOSTESS DHPM Leukocytes 9.4 3.4 - 9.6 x10(9)/L 04/04/2024 5:33 AM HEAD HOST/HOSTESS DHPM Blood (Blood, Venous) 04/04/2024 4:22 AM HEAD HOST/HOSTESS 04/04/2024 4:58 AM HEAD HOST/HOSTESS us Theodore Crocker M.D. LAB BLOOD ADD-ON Final Res ult Performing Organization Address City/[facility]/ZIP Co de Phone Number [facility] [address] [place] [address], [facility] [address] [place] [address] * (ABNORMAL) Troponin T, 5th Generation (04/04/2024 4:22 AM HEAD HOST/HOSTESS) Troponin T, 5th gen 155(H) <=15 ng/L 04/04/2024 4:56 AM HEAD HOST/HOSTESS [facility] Comment:Consider acute myoca rdial injury Blood (Blood, Venous) 04/04/2024 4:22 AM HEAD HOST/HOSTESS 04/04/2024 4:39 AM HEAD HOST/HOSTESS us Bry Choudhury M.D. LAB BLOOD ADD-ON Final R esult Performing Organization Address City/[facility]/ZIP Co de Phone Number [facility] [address] [facility] [address] [place] [address] * (ABNORMAL) Basic Metabolic Panel (04/04/2024 4:22 AM HEAD HOST/HOSTESS) Only the most recent of3 resultswithin the time period is included. Potassium, S 4.1 3.6 - 5.2 mmol/L 04/04/2024 5:47 AM HEAD HOST/HOSTESS DTL Sodium, S 136 135 - 145 mmol/L 04/04/2024 5:47 AM HEAD HOST/HOSTESS DTL Chloride, S 97(L) 98 - 107 mmol/L 04/04/2024 5:47 AM HEAD HOST/HOSTESS DTL Bicarbonate, S 20(L) 22 - 29 mmol/L 04/04/2024 5:47 AM HEAD HOST/HOSTESS DTL Anion Gap 19(H) 7 - 15 04/04/2024 5:47 AM HEAD HOST/HOSTESS DTL BUN (Blood Urea Nitrogen), S 67(H) 8 - 24 mg/dL 04/04/2024 5:47 AM HEAD HOST/HOSTESS DTL Creatinine 5.68(H) 0.74 - 1.35 mg/dL 04/04/2024 5:47 AM HEAD HOST/HOSTESS DTL Estimated GFR (eGFR) <15(L) >=60 mL/min/BSA 04/04/2024 5:47 AM HEAD HOST/HOSTESS DTL Comment: Estimated GFR calculated using the 2020 CKD_EPI creatinine equation. Calcium, Total, S 7.8(L) 8.8 - 10.2 mg/dL 04/04/2024 5:47 AM HEAD HOST/HOSTESS DTL Glucose, S 172(H) 70 - 140 mg/dL 04/04/2024 5:47 AM HEAD HOST/HOSTESS DTL Blood (Blood, Venous) 04/04/2024 4:22 AM HEAD HOST/HOSTESS 04/04/2024 5:10 AM HEAD HOST/HOSTESS us Theodore Crocker M.D. LAB BLOOD ADD-ON Final Res ult [facility] [address] [place] [address], [facility] DTL [facility] [address] [place] [address] * (ABNORMAL) Troponin T, 6h, 5th Gen (04/04/2024 12:10 AM HEAD HOST/HOSTESS) Troponin T, 6 hr, 5th gen 158(H) <=15 ng/L 04/04/2024 12:36 AM HEAD HOST/HOSTESS [facility] Comment:Consider acute myoca rdial injury 6H Delta % 10 % 04/04/2024 12:36 AM HEAD HOST/HOSTESS [facility] 6H Delta Interp Not Changing 04/04/2024 12:36 AM HEAD HOST/HOSTESS [facility] Blood 04/04/2024 12:1 0 AM HEAD HOST/HOSTESS 04/04/2024 12:17 AM HEAD HOST/HOSTESS Theodore Crocker M.D. LAB BLOOD TROPONIN Final R esult Performing Organization Address City/[facility]/ZIP Co de Phone Number [facility] [address] [place], [place] [address] [place] [address] [address] [place] [address] * (ABNORMAL) Troponin T, 2 Hour with 6 Hour Reflex, 5th Gen (04/03/2024 8:18 PM HEAD HOST/HOSTESS) Troponin T, 2 hr, 5th gen 135(H) <=15 ng/L 04/03/2024 8:51 PM HEAD HOST/HOSTESS [facility] Comment:Consider acute myoca rdial injury 2H Delta % -6 % 04/03/2024 8:51 PM HEAD HOST/HOSTESS [facility] Comment:6 hour collection pe nding. 2H Delta Interp Not Changing 04/03/2024 8:51 PM HEAD HOST/HOSTESS [facility] Blood 04/03/2024 8:18 PM HEAD HOST/HOSTESS 04/03/2024 8:27 PM HEAD HOST/HOSTESS Theodore Crocker M.D. LAB BLOOD TROPONIN Final R esult [facility] [address] [place] [address], [facility] [address] [place] [address] * (ABNORMAL) Troponin T, Baseline with 2 Hour/6 Hour Reflex Biomarker Panel (04/03/2024 6:04 PM HEAD HOST/HOSTESS) Troponin T, Baseline, 5th gen 143(H) <=15 ng/L 04/03/2024 6:42 PM HEAD HOST/HOSTESS [facility] Comment:Consider acute myoca rdial injury Blood (Blood, Venous) 04/03/2024 6:04 PM HEAD HOST/HOSTESS 04/03/2024 6:14 PM HEAD HOST/HOSTESS us Theodore Crocker M.D. LAB BLOOD TROPONIN Final R esult [facility] [address] [place] [address], [facility] STMA [facility] [address] [place] [address] * (ABNORMAL) CBC with Differential, Blood (04/03/2024 6:04 PM HEAD HOST/HOSTESS) Hemoglobin 10.7(L) 13.2 - 16.6 g/dL 04/03/2024 6:18 PM HEAD HOST/HOSTESS [facility] Hematocrit 32.9(L) 38.3 - 48.6 % 04/03/2024 6:18 PM HEAD HOST/HOSTESS [facility] Erythrocytes 3.19(L) 4.35 - 5.65 x10(12)/L 04/03/2024 6:18 PM HEAD HOST/HOSTESS [facility] MCV 103.1(H) 78.2 - 97.9 fL 04/03/2024 6:18 PM HEAD HOST/HOSTESS [facility] RBC Distrib Width 14.6(H) 11.8 - 14.5 % 04/03/2024 6:18 PM HEAD HOST/HOSTESS [facility] Platelet Count 249 135 - 317 x10(9)/L 04/03/2024 6:18 PM HEAD HOST/HOSTESS [facility] Leukocytes 12.0(H) 3.4 - 9.6 x10(9)/L 04/03/2024 6:18 PM HEAD HOST/HOSTESS [facility] Neutrophils 10.34(H) 1.56 - 6.45 x10(9)/L 04/03/2024 6:18 PM HEAD HOST/HOSTESS DHPM Lymphocytes 0.75(L) 0.95 - 3.07 x10(9)/L 04/03/2024 6:18 PM HEAD HOST/HOSTESS STMA Monocytes 0.49 0.26 - 0.81 x10(9)/L 04/03/2024 6:18 PM HEAD HOST/HOSTESS STMA Eosinophils 0.35 0.03 - 0.48 x10(9)/L 04/03/2024 6:18 PM HEAD HOST/HOSTESS STMA Basophils 0.04 0.01 - 0.08 x10(9)/L 04/03/2024 6:18 PM HEAD HOST/HOSTESS STMA Blood (Blood, Venous) 04/03/2024 6:04 PM HEAD HOST/HOSTESS 04/03/2024 6:14 PM HEAD HOST/HOSTESS us Theodore Crocker M.D. LAB BLOOD ADD-ON Final Res ult Performing Organization Address City/[facility]/ZIP Co de Phone Number [facility] [address] [place] [address], [facility] STMA [facility] [address] [place] [address] [facility] [address] [place] [address] * (ABNORMAL) Phosphorus Inorganic (04/03/2024 6:04 PM HEAD HOST/HOSTESS) Phosphorus (Inorganic), P 7.6(H) 2.5 - 4.5 mg/dL 04/03/2024 8:26 PM HEAD HOST/HOSTESS DTL Blood (Blood, Venous) 04/03/2024 6:04 PM HEAD HOST/HOSTESS 04/03/2024 6:14 PM HEAD HOST/HOSTESS us Theodore Crocker M.D. LAB BLOOD ADD-ON Final Res ult Performing Organization Address City/[facility]/ZIP Co de Phone Number [facility] [address] [place] [address], [facility] DTL [facility] [address] [place] [address] * Magnesium (04/03/2024 6:04 PM HEAD HOST/HOSTESS) Magnesium, P 1.9 1.7 - 2.3 mg/dL 04/03/2024 6:33 PM HEAD HOST/HOSTESS STMA Blood (Blood, Venous) 04/03/2024 6:04 PM HEAD HOST/HOSTESS 04/03/2024 6:14 PM HEAD HOST/HOSTESS us Theodore Crocker M.D. LAB BLOOD ADD-ON Final Res ult [facility] [address] [place] [address], [facility] [address] [place] [address] * DX Chest Portable 1 View (04/03/2024 5:11 PM HEAD HOST/HOSTESS) Anatomical Region Laterality Modality Chest, Thoracic RST LOS, Tho racic ARZ LOS, Thoracic FLA LOS N/A Digital Radiography Impressions 04/03/2024 5:25 PM HEAD HOST/HOSTESS Since 11/17/2022, new suspected diffuse interstitial pulmonary edema throughout both lungs. Probable trace right pleural effusion. Low lung volumes and lordotic positioning accentuate the cardiac silhouette and pulmonary vascularity. Otherwise no change. Aortic calcification. Degenerative changes of the spine. Narrative 04/03/2024 5:25 PM HEAD HOST/HOSTESS EXAM: DX CHEST PORTABLE 1 VIEW Procedure Note Jasmin Hill M.D. - 04/03/2024 EXAM: DX CHEST PORTABLE 1 VIEW IMPRESSION: Since 11/17/2022, new suspected diffuse interstitial pulmonary edemathroughout both lungs. Probable trace right pleural effusion. Low lungvolumes and lordotic positioning accentuate the cardiac silhouette andpulmonary vascularity. Otherwise no change. Aortic calcification. Degenerative changes of the spine. Vida Rodriguez M.D., Ph.D. IMG DIAGNOSTIC IMAGING PROCEDURES Final Result * ECG 12 Lead (04/03/2024 4:55 PM HEAD HOST/HOSTESS) Only the most recent of2 resultswithin the time period is included. Ventricular Rate ECG/Min 95 BPM MUSE NH Interval 134 ms MUSE QRSD Interval 134 ms MUSE QT Interval 396 ms MUSE QTC Interval 497 ms MUSE P [place] 69 degrees MUSE R [place] -25 degrees MUSE T Wave [place] 75 degrees MUSE 04/03/2024 4:55 PM HEAD HOST/HOSTESS 04/03/2024 5:18 PM HEAD HOST/HOSTESS Impressions MUSE - 04/03/2024 5:18 PM HEAD HOST/HOSTESS Normal sinus rhythm Right bundle branch block [...] ORDERABLES Final Resu lt Performing Organization Address City/[facility]/ZIP Co de Phone Number MUSE NA * (ABNORMAL) Hemoglobin (HGB), POCT (04/03/2024 4:40 PM HEAD HOST/HOSTESS) Hemoglobin, POCT, B 10.1(L) 13.2 - 16.6 g/dL 04/03/2024 4:45 PM HEAD HOST/HOSTESS PCSM Blood 04/03/2024 4:40 PM HEAD HOST/HOSTESS 04/03/2024 4:45 PM HEAD HOST/HOSTESS Unknown Provider LAB POCT ORDERABLES - DEVICE Fi nal Result Performing Organization Address [facility] Co de Phone Number POC RST [facility] INPATIENT LABS [address] [place] [address], [facility] PCSM [facility] POC [address] [address] * (ABNORMAL) Hemoglobin A1c (04/03/2024 1:19 PM HEAD HOST/HOSTESS) Hemoglobin A1c, B 7.0(H) 4.0 - 5.6 % 04/03/2024 2:34 PM HEAD HOST/HOSTESS DTL Comment: Hemoglobin A1c values greater than or equal to 6.5 percent are diagnostic for diabetes mellitus. Diagnosis should be confirmed by repeat testing. In diabetic patients, HbA1c goals should be discussed with healthcare provider. Blood (Blood, Venous) 04/03/2024 1:19 PM HEAD HOST/HOSTESS 04/03/2024 2:17 PM HEAD HOST/HOSTESS us Cristal Pfeiffer D.O. LAB BLOOD ADD-ON Final Result [facility] [address] [place] [address], [facility] DTL [facility] [address] [place] [address] * Glucose, Venous, Blood (04/03/2024 1:18 PM HEAD HOST/HOSTESS) Glucose, Venous, B 138 70 - 140 mg/dL 04/03/2024 1:50 PM [facility]OST[facility]HOSTESS [facility] Blood (Blood, Venous) 04/03/2024 1:18 PM HEAD HOST/HOSTESS 04/03/2024 1:24 PM HEAD HOST/HOSTESS Stacy Guerrero APRN, CRNA, D.N.P. LAB BLO OD ADD-ON Final Result Performing Organization Address [facility] Co de Phone Number [facility] [address] [place] [address], [facility] [address] [place] [address] * Potassium, Venous, Blood (04/03/2024 1:18 PM HEAD HOST/HOSTESS) Potassium, Venous, B 4.3 3.6 - 5.2 mmol/L 04/03/2024 1:54 PM HEAD HOST/HOSTESS [facility] Blood (Blood, Venous) 04/03/2024 1:18 PM HEAD HOST/HOSTESS 04/03/2024 1:24 PM HEAD HOST/HOSTESS Stacy Guerrero APRN, CRNA, D.N.P. LAB BLO OD NON ADD-ON Final Result Performing Organization Address [facility]/ZIP Co de Phone Number [facility] [address] [place] [address], [facility] [address] [place] [address] * Calcium, Ionized, Venous, Blood (04/03/2024 1:18 PM HEAD HOST/HOSTESS) Calcium, Ionized, Venous, B 4.67 4.65 - 5.30 mg/dL 04/03/2024 1:54 PM HEAD HOST/HOSTESS STMA Blood (Blood, Venous) 04/03/2024 1:18 PM HEAD HOST/HOSTESS 04/03/2024 1:24 PM HEAD HOST/HOSTESS Stacy Guerrero APRN, CRNA, D.N.P. LAB BLO OD NON ADD-ON Final Result Performing Organization Address [facility] Co de Phone Number [facility] [address] [place] [address] * Lactate, Venous, Blood (04/03/2024 1:18 PM HEAD HOST/HOSTESS) Lactate, Venous, B 1.5 0.5 - 2.2 mmol/L 04/03/2024 1:50 PM HEAD HOST/HOSTESS STMA Blood (Blood, Venous) 04/03/2024 1:18 PM HEAD HOST/HOSTESS 04/03/2024 1:24 PM HEAD HOST/HOSTESS Stacy Guerrero APRN, CRNA, D.N.P. LAB BLO OD ADD-ON Final Result Performing Organization Address [facility] Co de Phone Number [facility] [address] [place] [address], [facility] [address] [place] [address] * Sodium, Venous, Blood (04/03/2024 1:18 PM HEAD HOST/HOSTESS) Sodium, Venous, B 135 135 - 145 mmol/L 04/03/2024 1:50 PM HEAD HOST/HOSTESS STMA Blood (Blood, Venous) 04/03/2024 1:18 PM HEAD HOST/HOSTESS 04/03/2024 1:24 PM HEAD HOST/HOSTESS Stacy Guerrero APRN, CRNA, D.N.P. LAB BLO OD ADD-ON Final Result Performing Organization Address City/[facility]/ZIP Co de Phone Number [facility] [address] [place] [address] * Patient Status (04/03/2024 1:18 PM HEAD HOST/HOSTESS) [facility] FIO2 0.21 0.21=AIR 04/03/2024 1:24 PM HEAD HOST/HOSTESS STMA Spont. breaths/min 20 04/03/2024 1:24 PM HEAD HOST/HOSTESS STMA Blood 04/03/2024 1:18 PM HEAD HOST/HOSTESS 04/03/2024 1:24 PM HEAD HOST/HOSTESS Stacy Guerrero APRN, CRNA, D.N.P. LAB BLO OD NON ADD-ON Final Result [facility] [address] [place], [place] [address] [place] [address] [address] [place] [address] * (ABNORMAL) Blood Gas with Coox, Venous (04/03/2024 1:18 PM HEAD HOST/HOSTESS) [facility] pO2, Venous, B 50 Not applicable mm Hg 04/03/2024 1:26 PM HEAD HOST/HOSTESS STMA pCO2, Venous, B 44 41 - 51 mm Hg 04/03/2024 1:26 PM HEAD HOST/HOSTESS STMA pH, Venous, B 7.32 7.32 - 7.43 pH 024 1:26 PM HEAD HOST/HOSTESS STMA Base Excess, Venous, B -4 Not applicable mmol/L 04/03/2024 1:26 PM HEAD HOST/HOSTESS STMA HCO3, Venous, B 22 Not applicable mmol/L 04/03/2024 1:26 PM HEAD HOST/HOSTESS STMA Hemoglobin, Venous, B 11.4(L) 13.2 - 16.6 g/dL 04/03/2024 1:26 PM HEAD HOST/HOSTESS STMA O2Hb, Venous, B 75.2 Not applicable % 04/03/2024 1:26 PM HEAD HOST/HOSTESS STMA COHb, Venous, B <1.0 <3.0 % 04/03/2024 1:26 PM HEAD HOST/HOSTESS STMA MetHb, Venous, B 2.4(H) <1.5 % 04/03/2024 1:26 PM HEAD HOST/HOSTESS STMA CtO2, Venous, B 12.1 Not Applicable vol % 04/03/2024 1:26 PM HEAD HOST/HOSTESS STMA Sample Site, Venous, B Venipunct 04/03/2024 1:24 PM HEAD HOST/HOSTESS STMA Blood (Blood, Venous) 04/03/2024 1:18 PM HEAD HOST/HOSTESS 04/03/2024 1:24 PM HEAD HOST/HOSTESS us Stacy Guerrero APRN, KATI, D.N.P. LAB BLO OD NON ADD-ON Final Result Performing Organization Address City/[facility]/ZIP Co de Phone Number [facility] [address] [place] [address], [facility] STMA [facility] [address] [place] [address] * Glucose, POCT (04/03/2024 1:13 PM HEAD HOST/HOSTESS) Glucose, POCT, B 133 70 - 140 mg/dL 04/03/2024 1:16 PM HEAD HOST/HOSTESS PCLX Comment: Glucose results collected from venous catheters may be falsely elevated. Site Venline 04/03/2024 1:16 PM HEAD HOST/HOSTESS PCLX Blood 04/03/2024 1:13 PM HEAD HOST/HOSTESS 04/03/2024 1:16 PM HEAD HOST/HOSTESS us Unknown Provider LAB POCT ORDERABLES-MANUAL Mary l Result Performing Organization Address City/[facility]/ZIP Co de Phone Number POC [facility] [address] [place] [address], [facility] PCLX [facility] POC [address] [place] [address] * Misc Research, Blood (04/03/2024 11:20 AM HEAD HOST/HOSTESS) Number of Specimens 5 04/03/2024 11:20 AM HEAD HOST/HOSTESS HSS Blood (Blood, Venous) 04/03/2024 11:20 AM HEAD HOST/HOSTESS 04/03/2024 11:20 AM HEAD HOST/HOSTESS us Ekmar Shuja M.B.B.S. LAB RESEARCH NO RESULT ROUT ING Final Result [facility] [address] [place] [address], [place] HSS [facility] [address] [place] [address] * Leg-Vascular Image Exam (03/12/2024 7:10 AM [...] PROCE DURES Final Result Performing Organization Address City/[facility] Co de Phone Number IIMS NA [...] arthritis would have a similarappearance. us Jayjay A Meverden P.A.-C. IMG MRI PROCEDURES Final Result * [...] mural thrombus causing moderate stenosis (series 5, [id number]). Moderate to severe stenosis distal to the [...] POCT ORDERABLES - DEVICE Fi nal Result [facility] PERFORMING LABS [address] [place] [address], [facility] PCDT [facility] POC [address] [place] [address] * DX Foot Bilateral 3+ Views (03/07/2024 [...] stenoses within the stents and in the [place] distal SFA below the stents. 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 Patent mid SFA stents with new stenosis at the proximal end point. Worsening stenosis in the [place] distal SFA. Similar stenoses in the popliteal [...] femoral: Interval development of stenosis within the [place] SFA below the stents. 451 cm/s today, [...] femoral: Focally elevated Doppler velocities within the [place] distal SFA (128 cm/s today, previously 100 [...] New stenoses within thestents and in the [place] distal SFA below the stents. LEFT: Unchanged stenosis of the [place] proximal superficial femoralartery. Patent mid SFA stents with new stenosis at the proximal end point.Worsening stenosis in the [place] distal SFA. 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 us Jayjay A Meverden P.A.-C. CV VASCULAR PROCEDURES F inal Result * HCV Ab Scrn w/Reflex to HCV PCR, Serum (02/17/2023 9:35 AM CDT) HCV Ab Screen, S Negative Negative 02/18/20 3:35 PM CDT [facility] Comment: Biotin has been identified by the bessemer bottom maker as a potential interfering substance. Higher concentrations of biotin may be found in multivitamins, hair/nail supplements, and workout supplements. If the result does not match clinical observations, repeat testing after patient refrains from the use of supplements for at least 12 hours. Blood (Blood, Venous) 02/17/2023 9:35 AM CDT 02/17/2023 2:20 PM CDT Narrative [facility] - 02/17/2023 3:35 PM CDT Specimen Information: Specimen ID: [id number] Specimen Type: Blood Specimen Collection Start Date: 02/17/2023 9:35 AM Specimen Received Date: 02/17/2023 2:20 PM Specimen ID: [id number] Specimen Type: Blood Specimen Collection Start Date: 02/17/2023 9:35 AM Specimen Received Date: 02/17/2023 2:16 PM Haseeb Menon Jr. D.O. LAB MICROBIOLOGY - B LOOD ORDERABLES Final Result [facility] [address] [place] [address], [facility] [place] [address] [place] [address] * (ABNORMAL) Albumin, Random, Urine (02/17/2023 9:26 AM CDT) Microalbumin 895.0 mg/L 02/17/2023 1:53 PM CDT [facility] Creatinine 42 mg/dL 02/17/2023 12:50 PM CDT [facility] Albumin/Creatinin e Ratio 2131(H) <17 mg/g 02/17/2023 1:53 PM CDT [facility] Urine (Urine, Voided) 02/17/2023 9:26 AM CDT 02/17/2023 11:00 AM CDT us Haseeb Menon Jr., D.O. LAB URINE ORDERABLES Final Result [facility] [address] [place] [address], [facility] [address] [place] [address] * (ABNORMAL) Lipid Panel (02/10/2021 8:27 AM [...] AM CDT 02/10/2021 9:07 AM CDT Kemar Shuja M.B.B.S. 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
--- OUTSIDE RECORDS SUMMARY | 2024-04-24 10:02 | XMS_ITS | Encounter Summary ---
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 Procedures IR ENDOVASCULAR ANGIOPLASTY STENT LOWER EXTREMITY, right femoral access. IR IMAGING. Referral ID Status Reason Start Date Expiration Date Visits Re quested Visits Authorized [id number] 1 1 Encounter Details Date Type Department Care Team (Latest Contact Info) Description 04/03/2024 10:41 AM [employer]SHAL - 04/04/2024 6:07 PM [employer]AL Hospital Encounter [facility], [facility], [facility], Eighth Floor [address] [place] [address] Kemar Velásquez M.B.B.S. [address] [place] [address] Peripheral Arterial Disease (HCC); Atherosclerosis Arteriosclerosis Obliterans [...] drink = 0.6 oz pur e alcohol) [facility] Utilities Answer Date Recorded In [...] often do you attend anabaptism or congregational serv ices? Never 03/24/2021 Do [...] have a [facility] [place] place to live 04/04/2024 Education Answer Date Recorded What is the highest level of school you have completed or the highest degree you have received? Some college, no degree 03/24/2021 Sex and Gender Information Value Date Recorded Sex Assigned at Male 03/24/2021 8:13 PM [employer]AL Legal Sex Male 12:04 AM [employer] Gender Identity Male 08/31/2019 2:40 PM CDT Sexual Orientation Straight 08/31/2019 2: 40 PM CDT documented as of this encounter Last Filed Vital Signs Vital Sign Reading Time Taken Comments Blood Pressure 175/57 04/04/2024 5:18 PM [employer]AL Pulse 79 04/04/2024 4:30 PM [employer] Temperature 36.6 C (97.9 F) 04/04/2024 4:30 PM [employer] Respiratory Rate 19 04/04/2024 4:30 PM [employer] Oxygen Saturation 97% 04/04/2024 4:30 PM [employer]AL Inhaled Oxygen Concentration - - Weight 87.1 kg (192 lb) 04/03/2024 11:11 AM [employer] FI[employer]SHAL Height 175.3 cm (5' 9) 04/03/2024 11:11 AM [employer] Body Mass Index 28.35 04/03/2024 11:11 AM [employer] documented in this encounter Discharge Summaries * Michelle Meier APRN, C.N.P., M.S.N. - 04/04/2024 11:14 AM CST DISCHARGE SUMMARY BRIEF OVERVIEW Hospital: [facility] Discharge Provider: Kemar Velásquez M.B.B.S. Primary Team: [facility] Vascular Surgery - [place] Primary Care Provider: Dr. 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 * Surgery Information This Encounter Past and Present Procedures (04/05/2023 to Today) Date Procedures Providers Loc / Dept 04/03/2024 IR ENDOVASCULAR ANGIOPLASTY STENT LOWER EXTREMITY, right femoral access., IR IMAGING. Kemar Velásquez M.B.Christa.S.Theodore Crocker M.D. [facility] ROMB OR 04/04/2024 IR ENDOVASCULAR ANGIOPLASTY, DCB LOWER EXTREMITY, left femoral access., IR IMAGING. Kemar Velásquez M.B.B.S.Cristal Pfeiffer D.O.Kaoukabani, Georges, M.D., M.S. RST ROMB OR DISCHARGE DISPOSITION Home or Self Care [1] ACTIVE ISSUES REQUIRING FOLLOW-UP A follow-up appointment with your primary care provider (PCP) should be arranged immediately when you return home. This will give you the opportunity to discuss your hospital course and share any important current care needs with your PCP. A copy of the discharge summary has been faxed for their review. Your primary care provider is your long-term healthcare provider, please follow-up with them forany medication refills, home care assistance, or any ongoing chronic medical conditions as needed. At the time of dismissal, pain medication (examples: oxycodone, Dilaudid, Tramadol, [place], etc.)will be prescribed to you if needed. Duration will be determined on a [id number] basis and will not exceed 2 weeks. Thereafter, you will need to be evaluated by your primary care provider or your surgical team if operative pain persists. You will return in 4-6 weeks at which time you will have a lower extremity ultrasound and noninvasive vascular studies and TcPO2s prior to your appointment with Dr. Velásquez. These appointments will be mailed to your home. Should you not receive them or if you need to reschedule your appointment, please contact the vascular scheduling office by calling [phone]. Should you need to contact Dr. Velásquez or his service (pager [phone]) in the interim, you may do sothrough his quality engineer medical device at during normal business hours of 8 to 5 Tuesday through Tuesday or, in an emergency situation, through the [place] sifting operator at . OUTPATIENT FOLLOW UP For appointment details refer to your Patient Appointment Guide. 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 Walton was admitted to Dr. Velásquez's surgical service following left lower extremity angiogram with balloon on 04/03/2024 and right lower extremity angiogram with balloon angioplasty of previous stent on 04/04/2024. He tolerated the procedures well and was transferred to the vascular surgical unit postoperatively. ECG and troponins were negative for myocardial ischemia. . Bilateral groin punctures well approximated with no hematomas. Bilateral lower extremity distal peripheral vessels with signals. Neurological exam was at baseline. At the time of dismissal, he was tolerating a general diet, mobilizing, and urinating without difficulty. Aspirin was continued throughout the perioperative course and should be continued lifelong. Plavix therapy was loaded and should continue for at least 3 months. # Right foot ulcer Continue to follow with local wound care for management of right plantar foot wound. It is recommended you try to limit any weight to right foot until wound is healed. # Hyperlipidemia # Hypertension NOS Mr. Walton was continued on previous statin therapy. Continue to follow-up with primary care for ongoing monitoring. # Sleep Apnea Oxygen saturations were closely monitored postoperatively. At the time of dismissal, he was saturating well on room. # Diabetes Mellitus Type 2 With Other Circulatory Complication ([facility]) # Chronic Kidney Disease Stage 5 Glomerular Filtration Rate Less Than 15 ([facility]) Home medications were resumed as clinically indicated. Nephrology was consulted and peritoneal dialysis was continued. Ongoing management of chronic medical conditions per primary care provider. CONSULTS ORDERED DURING THIS ADMISSION IP CONSULT TO NEPHROLOGY Pertinent Diagnostic Results: DX Chest Portable 1 View Result Date: 04/03/2024 Impression: Since 11/17/2022, new suspected diffuse interstitial pulmonary edema throughout both lungs. Probable trace right pleural effusion. Low lung volumes and lordotic positioning accentuate the cardiac silhouette and pulmonary vascularity. Otherwise no change. Aortic calcification. Degenerativechanges of the spine. BUN (Blood Urea Nitrogen), P Date Value Ref Range Status 04/03/2024 75 (H) 8 - 24 mg/dL Final BUN (Blood Urea Nitrogen), S Date Value Ref Range Status 04/04/2024 67 (H) 8 - 24 mg/dL Final Creatinine Date Value Ref Range Status 04/04/2024 5.68 (H) 0.74 - 1.35 mg/dL Final 04/03/2024 5.53 (H) 0.74 - 1.35 mg/dL Final Creatinine, POCT, B Date Value Ref Range Status 03/09/2024 6.4 (H) 0.7 - 1.4 mg/dL Final Comment: ----ADDITIONAL INFORMATION---- Performed at the Point of Care Recent Results (from the past 24 hours) Glucose, POCT Collection Time: 04/03/24 1:13 PM Result Value Glucose, POCT, B 133 Site Venline Blood Gas with Coox, Venous Collection Time: 04/03/24 1:18 PM Result Value pO2, Venous, B 50 pCO2, Venous, B 44 pH, Venous, B 7.32 Base Excess, Venous, B -4 HCO3, Venous, B 22 Hemoglobin, Venous, B 11.4 (L) O2Hb, Venous, B 75.2 COHb, Venous, B <1.0 MetHb, Venous, B 2.4 (H) CtO2, Venous, B 12.1 Sample Site, Venous, B Venipunct Calcium, Ionized, Venous, Blood Collection Time: 04/03/24 1:18 PM Result Value Calcium, Ionized, Venous, B 4.67 Sodium, Venous, Blood Collection Time: 04/03/24 1:18 PM Result Value Sodium, Venous, B 135 Potassium, Venous, Blood Collection Time: 04/03/24 1:18 PM Result Value Potassium, Venous, B 4.3 Glucose, Venous, Blood Collection Time: 04/03/24 1:18 PM Result Value Glucose, Venous, B 138 Lactate, Venous, Blood Collection Time: 04/03/24 1:18 PM Result Value Lactate, Venous, B 1.5 Patient Status Collection Time: 04/03/24 1:18 PM Result Value FIO2 0.21 Spont. breaths/min 20 Hemoglobin A1c Collection Time: 04/03/24 1:19 PM Result Value Hemoglobin A1c, B 7.0 (H) Basic Metabolic Panel Collection Time: 04/03/24 1:19 PM Result Value Potassium, P 4.4 Sodium, P 133 (L) Chloride, P 93 (L) Bicarbonate, P 21 (L) Anion Gap, P 19 (H) BUN (Blood Urea Nitrogen), P 72 (H) Creatinine 5.53 (H) Estimated GFR (eGFR) <15 (L) Calcium, Total, P 8.5 (L) Glucose, P 136 ACT (Activated Clotting Time), POCT Collection Time: 04/03/24 3:20 PM Result Value Activated Clotting Time, POCT 319 (H) Hemoglobin (HGB), POCT Collection Time: 04/03/24 4:40 PM Result Value Hemoglobin, POCT, B 10.1 (L) ACT (Activated Clotting Time), POCT Collection Time: 04/03/24 4:43 PM Result Value Activated Clotting Time, POCT 166 (H) CBC with Differential, Blood Collection Time: 04/03/24 6:04 PM Result Value Hemoglobin 10.7 (L) Hematocrit 32.9 (L) Erythrocytes 3.19 (L) MCV 103.1 (H) RBC Distrib Width 14.6 (H) Platelet Count 249 Leukocytes 12.0 (H) Neutrophils 10.34 (H) Lymphocytes 0.75 (L) Monocytes 0.49 Eosinophils 0.35 Basophils 0.04 Basic Metabolic Panel Collection Time: 04/03/24 6:04 PM Result Value Potassium, P 4.6 Sodium, P 134 (L) Chloride, P 95 (L) Bicarbonate, P 21 (L) Anion Gap, P 18 (H) BUN (Blood Urea Nitrogen), P 75 (H) Creatinine 5.53 (H) Estimated GFR (eGFR) <15 (L) Calcium, Total, P 8.3 (L) Glucose, P 135 Magnesium Collection Time: 04/03/24 6:04 PM Result Value Magnesium, P 1.9 Phosphorus Inorganic Collection Time: 04/03/24 6:04 PM Result Value Phosphorus (Inorganic), P 7.6 (H) Troponin T, Baseline with 2 Hour/6 Hour Reflex Biomarker Panel Collection Time: 04/03/24 6:04 PM Result Value Troponin T, Baseline, 5th gen 143 (H) Troponin T, 2 Hour with 6 Hour Reflex, 5th Gen Collection Time: 04/03/24 8:18 PM Result Value Troponin T, 2 hr, 5th gen 135 (H) 2H Delta % -6 2H Delta Interp Not Changing Troponin T, 6h, 5th Gen Collection Time: 04/04/24 12:10 AM Result Value Troponin T, 6 hr, 5th gen 158 (H) 6H Delta % 10 6H Delta Interp Not Changing CBC without Differential Collection Time: 04/04/24 4:22 AM Result Value Hemoglobin 10.5 (L) Hematocrit 31.7 (L) Erythrocytes 3.09 (L) MCV 102.6 (H) RBC Distrib Width 14.6 (H) Platelet Count 236 Leukocytes 9.4 Basic Metabolic Panel Collection Time: 04/04/24 4:22 AM Result Value Potassium, S 4.1 Sodium, S 136 Chloride, S 97 (L) Bicarbonate, S 20 (L) Anion Gap 19 (H) BUN (Blood Urea Nitrogen), S 67 (H) Creatinine 5.68 (H) Estimated GFR (eGFR) <15 (L) Calcium, Total, S 7.8 (L) Glucose, S 172 (H) Troponin T, 5th Generation Collection Time: 04/04/24 4:22 AM Result Value Troponin T, 5th gen 155 (H) ACT (Activated Clotting Time), POCT Collection Time: 04/04/24 8:47 AM Result Value Activated Clotting Time 262 (H) CONDITION AT DISCHARGE stable Code Status at Discharge: FULL Discharge instructions were provided to the patient and caregiver(s). Total time spent in discharge services today: >20 minutes. E [employer]RE MARSHAL E FIRE MARSHAL E FIRE MARSHAL documented in this encounter Discharge Instructions * Attachments The following attachments cannot be sent through Care Everywhere. * Clopidogrel (By mouth) (Czech) * Pantoprazole (By mouth) (Czech) documented in this encounter Medications at Time [...] Take 20 mg by mouth at bedtime. 03/02/2023 blood-glucose meter,continuous by other route. 05/17/2023 blood-glucose sensor device 11/25/2021 blood-glucose sensor device by other route. 03/11/2023 calcium acetate,phosphat bind, (PHOSLO) 667 mg (169 mg calcium) capsule Take 2 capsules (1,334 mg total) by mouth 3 (three) times a day with meals. 540 capsule 3 06/17/2023 5 calcium citrate (Calcitrate) 950 mg (200 mg calcium) tablet Take 800 mg of calcium by mouth at bedtime. carvediloL (Coreg) 25 mg tablet Take 0.5 tablets (12.5 mg total) by mouth 2 (two) times a day with meals. 90 tablet 3 04/04/2024 5 doxepin (SINEquan) 25 mg capsule Take 25 mg by mouth 2 (two) times a day. DULoxetine (Cymbalta) [address] capsule Take 30 mg by mouth daily. 08/16/2016 ergocalciferol (Vitamin D2) 50,000 Unit capsule Take 50,000 Units by mouth once a week. Once per week on Tuesday. ferrous sulfate 325 mg (65 mg iron) tablet Take 325 mg by mouth daily. Patient takes 65 mg of elemental iron(325 mg ferrous sulfate) daily furosemide (Lasix) 80 mg tablet Take 2 tablets (160 mg total) by mouth 2 (two) times a day. 160 mg in the morning and 160 mg at 2pm daily. 04/04/2024 lisinopriL (PRINIVIL,ZESTRIL ) 40 mg tablet Take 0.5 tablets (20 mg total) by mouth daily. Patient reports it was decreased by primary physician about 04/2020 per patient report. 45 tablet 3 09/13/2023 methocarbamoL (Robaxin) 750 mg tablet Take 750 mg by mouth 3 (three) times a day as needed for muscle spasms. minocycline (MINOCIN,DYNACIN) 100 mg capsule Take 100 mg by mouth daily. 01/14/2022 multivitamin renal failure (Dialyvite) 50-0.5 mg per tablet Take 1 tablet by mouth daily. nortriptyline (PAMELOR) 50 mg capsule Take 100 mg by mouth at bedtime. 5 12/06/2017 omeprazole (PriLOSEC) [address] capsule Take 1 capsule (40 mg total) by mouth as directed. DO NOT TAKE WHILE ON PLAVIX (Clopidogrel) 04/04/2024 oxyCODONE (ROXICODONE) 5 mg immediate release tabletIndications :Acute Pain Exception Take 1 tablet (5 mg total) by mouth every 6 (six) hours as needed for severe pain or score 7-10 of 10 Indication: Acute Pain Exception. for pain 6 tablet 02/16/2023 pantoprazole (Protonix) 40 mg EC tablet Take 1 tablet (40 mg total) by mouth daily before morning meal. Take while on Plavix (Clopidogrel) 90 tablet 04/04/2024 pramipexole (Mirapex) 1 mg tablet Take 1 mg by mouth 2 (two) times a day. 1 mg at 3pm and 1 mg between 9 and 10 pm daily. rOPINIRole (Requip) 1 mg tablet Take 1 mg by mouth at bedtime. sennosides (Senokot) 8.6 mg tablet Take 8.6 mg by mouth at bedtime. sodium bicarbonate 650 mg tablet Take 650 mg by mouth 2 (two) times a day. UNABLE TO FIND Inject 1 each under the skin continuously. Insulin aspart pump. clopidogreL (Plavix) 75 mg tablet Take 1 tablet (75 mg total) by mouth daily. 04/04/2024 4 documented as of this encounter Progress Notes * Yanely Duvall M.D. - 04/04/2024 12:45 PM CST I was the supervising physician in the delivery of the service. I have discussed the plan yesterdaywith Regina Schmidt CNP and today with Jessica Rubalcava CNP. I saw the patient this AM and he is doing well. Plan dismissal this afternoon. He will return to his usual CCPD home regimen [employer]SHAL * Jessica Guzman APRN, C.N.P., M.S.N. - 04/04/2024 12:12 PM CST NEPHROLOGY CONSULT SERVICE - PROGRESS NOTE Hospital Day 0 SUBJECTIVE Mr. Walton is seen in his hospital room today. Patient's daughter and are at bedside. Patienthad just come back from the OR from a vascular surgery. Patient is comfortably resting in bed. Patient is on a 6 hours bedrest until 1530 with plans to discharge after. Patient denies any acute events overnight. He denies any shortness of breath, chest pain, or nausea. Mr. Walton had PD last nightwith the following prescription: CCPD; 8 hours; 4 exchanges; 2.5 L fill volume; 1.5% glucose; NO day dwell as his usually outpatient routine. Patient states that he tolerated this well. Due to patient discharging this afternoon, we will not be placing PD orders today. Primary team notified to reachout to nephrology for PD orders if patient will no longer be discharging. I have reviewed: current medication list, vital signs, intake/output, and recent diagnostic testing. OBJECTIVE Admission weight: 87.1 kg Weights for the past 120 hrs (Last 3 readings): Weight 04/03/24 1111 87.1 kg I/O 04/03 0000 04/03 2359 04/04 0000 04/04 2359 Other 0 Intermittent Medications 100 100 Total Intake(mL/kg) 100 (1.1) 100 (1.1) Urine (mL/kg/hr) 425 (0.4) Blood 10 Dialysis 458 479 Total Output 458 914 Net -358 -814 VITAL SIGNS Temperature: [36.5 ??C-37.2 ??C] 36.7 ??C Heart Rate: [83-103] 83 Resp Rate: [10-26] 11 Blood Pressure: (136-207)/(55-120) 160/55 SpO2: [86 %-100 %] 96 % Flow Rate (L/min): [2 L/min] 2 L/min Pulse Rate: [82-104] 82 PHYSICAL EXAM General: Alert, oriented, and answering assessment questions appropriately. Resting in bed. In no acute distress. Respiratory: Respirations are regular. Breathing on room air. Extremities: No edema present in bilateral lower extremities. Abdomen: Non-tender to palpation. Non-distended. Catheter exit site clean, dry, with no erythema ordrainage. DIAGNOSTICS Results from last 7 days Lab Units 04/04/24 0422 04/03/24 1804 HEMOGLOBIN g/dL 10.5* 10.7* WBC x10(9)/L 9.4 12.0* PLATELETS AUTO x10(9)/L 236 249 Last 2 results Lab Units 04/04/24 0422 04/03/24 1804 04/03/24 1319 SODIUM P mmol/L -- 134* 133* SODIUM mmol/L 136 -- -- POTASSIUM P mmol/L -- 4.6 4.4 POTASSIUM mmol/L 4.1 -- -- BICARBONATE PLASMA mmol/L -- 21* 21* BICARBONATE S mmol/L 20* -- -- BUN P mg/dL -- 75* 72* BUN mg/dL 67* -- -- CREATININE mg/dL 5.68* 5.53* 5.53* CALCIUM P mg/dL -- 8.3* 8.5* CALCIUM mg/dL 7.8* -- -- PHOSPHORUS INORGANIC P mg/dL -- 7.6* -- MAGNESIUM RL mg/dL -- 1.9 -- ASSESSMENT / PLAN # End stage 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 maintained on peritoneal dialysis since 2022 # Admitted on 04/03/2024 for planned IR angio with possible stenting for chronic limb ischemia # Peripheral Arterial Disease ([facility]) [I73.9] Atherosclerosis Arteriosclerosis [place]bliter[place] Leg With Ulcer Toe Left ([facility]) [I70.245] # Chronic anemia related to end stage kidney disease # Secondary hyperparathyroidism related to end stage kidney disease # Hypertension # Hyponatremia underwent peritoneal dialysis last night and had a total ultrafiltration of 937 mL (479 mL from cycler, 458 mL last fill) over the last 24 hours. As patient is discharging this afternoon, we will not be placing PD orders. Please reach out to nephrology if plans change and PD orders needed. Discharge Recommendations: -- Peritoneal dialysis 7 nights/week. Outpatient PD is managed by Abhijit Mueller -- Dialdejuan, one tablet orally each evening -- Sodium bicarbonate 650 mg p.o. b.i.d. -- Calcium citrate 950 mg p.o. daily (200 mg PO) -- Calcium acetate 1334 mg PO TID with meals. This medication may be held if he is NPO at any time -- Ferrous sulfate 325 mg p.o. daily -- Furosemide 160 mg p.o. b.i.d. -- Outpatient BP management: Carvedilol 50 mg p.o. b.i.d., lisinopril 20 mg p.o. daily, furosemide 160 mg p.o. b.i.d. -- Continue PRN bowel medications for constipation, as this can negatively impact the function of the PD catheter -- Gentamicin 0.1 % cream to be applied to PD catheter exit site daily. -- Mircera 120 mcg subcutaneous. Nephrology will order and manage. -- Venofer 100 mg IV once monthly last given on 03/20/2024. Nephrology will order and manage. Mr. Walton's case has been staffed with Dr. Duvall, Nephrology home planning consultant salesperson. For questions or concerns, please contact Nephrology A [employer]/PA pager ([phone]). E FIRE MARSHAL * Ozzy Marcos M.D., M.S. - 04/04/2024 9:47 AM CST [facility] Service Progress Note SUBJECTIVE Onesimo Walton is Day of Surgery, and hospital day 0. We saw and examined Onesimo this morning. No acute events overnight. The patient remains hemodynamically stable and afebrile. PO intake is adequate, no nausea or vomiting. Onesimo is ambulating, voiding appropriately, and having appropriate bowel function. Signals are present in both feet. Tolerated the angiogram yesterday well. Will go for an angiogram of the right lower extremity this morning. AM labs: 9.4 \ 10.5 / 236 / 31.7 \ 136 97 67 / 172 4.1(S) ; 4.6(P) 20 5.68 \ Components from the labs above may be from different times. Last 2 results Lab Units 04/04/24 0422 04/03/24 1804 04/03/24 1319 04/03/24 1319 04/03/24 1318 SODIUM P mmol/L -- 134* < > 133* -- SODIUM VENOUS mmol/L -- -- -- -- 135 SODIUM mmol/L 136 -- -- -- -- POTASSIUM mmol/L 4.1 -- -- -- -- POTASSIUM VENOUS mmol/L -- -- -- -- 4.3 POTASSIUM P mmol/L -- 4.6 -- 4.4 -- < > = values in this interval not displayed. Drains: Output by Drain (mL) 04/02/24 07 - 04/02/24 1900 04/02/24 190 - 04/03/24 0704/03/24 07 - 04/03/24 1900 04/03/24 190 - 04/04/24 0700 04/04/24 07 - 04/04/24 0947 Patient has no LDAs of requested type attached. OBJECTIVE Vitals Temperature: [36.6 ??C-37.2 ??C] 37 ??C Heart Rate: [87-103] 97 Resp Rate: [13-26] 15 Blood Pressure: (136-207)/(64-120) 186/80 SpO2: [86 %-100 %] 95 % Flow Rate (L/min): [2 L/min] 2 L/min Height: [175.3 cm] 175.3 cm Weight: [87.1 kg] 87.1 kg BSA (Calculated - sq m): [2.06 sq meters] 2.06 sq meters BMI (Calculated): [28.3 kg/m??] 28.3 kg/m?? Pulse Rate: [87-104] 97 I/O Intake/Output Last 24 Hours: Intake/Output Summary (Last 24 hours) at 04/04/2024 0948 Last data filed at 04/04/2024 0908 Gross per 24 hour Intake 200 ml Output 1247 ml Net -1047 ml Physical Exam Constitutional Appearance: Normal appearance. Abdominal Palpations: Abdomen is soft. Musculoskeletal Comments: Groin is soft, no signs of bleeding or hematoma Neurological Mental Status: He is alert. 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 POD1 s/p left leg diagnostic angiogram with ballooning. POD0 s/p right leg diagnostic angiogram with ballooning. Plan: Flat for 6 hours until 3:30 pm Neurovascular checks of the leg q15 minutes for the first hour, hourly after that Groin checks for hematoma/pseudoaneurysm Continue Plavix Can discharge later today [facility]. Please page [phone] ([facility]) with any questions. Plan and assessment were discussed with Dr. Velásquez, who was in agreement. Dick Marcos M.D., M.S. PGY1 - General Surgery [id number] [address] * Tammy Yancey Pharm.D., R.Ph., [facility] - 04/04/2024 8:09 AM CST Pharmacist Progress Note Reason for admission: right femoral endovascular angioplasty stent PMH: hx of TIA 2010, cataract, nicotine dependence, MDD, T2DM, ED, GERD, gout, HLD, HTN, PAD, RLS, spinal stenosis, ESRD on peritoneal dialysis OBJECTIVE Home medications: Held: allopurinol, aspirin, atorvastatin, Phoslo, calcium, Coreg, doxepin, Cymbalta, Vit D, ferroussulfate, Lasix, lisinopril, methocarbamol, minocycline, multivitamin, nortriptyline, omeprazole, pramipexole, ropinirole, sodium bicarbonate Changed: None Prophylaxis: Holding for OR ASSESSMENT / PLAN Resume home medications when able and safe from a surgical perspective (see held medications above). Resume DVT prophylaxis post-op. Neph: Agree with Neph recs (see note for medication resumptions). PD active and managed by Neph. Changes to medications anticipated at discharge: TBD Jose Carlos Yancey Pharm.D., R.Ph., BCPS [employer] [place] [place] * Clarice Olivo Pharm.D., R.Ph. - 04/03/2024 11:55 AM CST Images from the original note were not included. Admission Medication History Note Adherence issues: No concerns Medication list source: Patient Medication related information: Prior to Admission Medications Med List Status: Pharmacy Complete Set By: Clarice Olivo Pharm.D., R.Ph. at 04/03/2024 11:54 AM Taking? Last Dose Informant Start Date End Date LT acetaminophen (TYLENOL) 500 mg tablet at Bedtime -- 03/25/21 -- Take 2 tablets (1,000 mg total) by mouth every 8 (eight) hours as needed (neuropathy). allopurinoL (ZYLOPRIM) 100 mg tablet 04/03/2024 at 7:00 AM -- -- -- Take 100 mg by mouth daily. aspirin [address] tablet 04/03/2024 at 7:00 AM -- -- -- Take 81 mg by mouth daily. atorvastatin (Lipitor) 20 mg tablet 04/02/2024 at Bedtime -- 03/02/23 -- Take 20 mg by mouth at bedtime. blood-glucose meter,continuous at Bedtime -- 05/17/23 -- by other route. blood-glucose sensor device at Morning -- 11/25/21 -- blood-glucose sensor device at Bedtime -- 03/11/23 -- by other route. calcium acetate,phosphat bind, (PHOSLO) 667 mg (169 mg calcium) capsule 04/03/2024 at 7:00 AM -- 06/17/23 06/16/24 Take 2 capsules (1,334 mg total) by mouth 3 (three) times a day with meals. calcium citrate (Calcitrate) 950 mg (200 mg calcium) tablet 04/02/2024 at Bedtime -- -- -- Take 800 mg of calcium by mouth at bedtime. carvediloL (Coreg) 25 mg tablet 04/03/2024 at 7:00 AM -- 03/13/24 03/13/25 Take 2 tablets (50 mg total) by mouth 2 (two) times a day with meals. Patient taking differently: Take 12.5 mg by mouth 2 (two) times a day with meals. doxepin (SINEquan) 25 mg capsule 04/03/2024 at 7:00 AM -- -- -- Take 25 mg by mouth 2 (two) times a day. DULoxetine (Cymbalta) [address] capsule 04/03/2024 at 7:00 AM External Chart 08/16/16 -- Take 30 mg by mouth daily. ergocalciferol (Vitamin D2) 50,000 Unit capsule 03/31/2024 at Morning -- -- -- Take 50,000 Units by mouth once a week. Once per week on Tuesday. ferrous sulfate 325 mg (65 mg iron) tablet 04/03/2024 at 7:00 AM Self -- -- Take 325 mg by mouth daily. Patient takes 65 mg of elemental iron(325 mg ferrous sulfate) daily furosemide (LASIX) 80 mg tablet 04/03/2024 at 7:00 AM -- 04/26/23 -- Take 2 tablets (160 mg total) by mouth 2 (two) times a day. Patient taking differently: Take 160 mg by mouth 2 (two) times a day. 160 mg in the morning and 160mg at 2pm daily. lisinopriL (PRINIVIL,ZESTRIL) 40 mg tablet 04/03/2024 at 7:00 AM -- 09/13/23 09/12/24 Take 0.5 tablets (20 mg total) by mouth daily. Patient reports it was decreased by primary physician about 04/2020 per patient report. Notes: Updating the dose no fill methocarbamoL (Robaxin) 750 mg tablet at 7:00 AM -- -- -- Take 750 mg by mouth 3 (three) times a day as needed for muscle spasms. minocycline (MINOCIN,DYNACIN) 100 mg capsule 04/03/2024 at 7:00 AM -- 01/14/22 -- Take 100 mg by mouth daily. multivitamin renal failure (Dialyvite) 50-0.5 mg per tablet 04/03/2024 at 7:00 AM -- -- -- Take 1 tablet by mouth daily. nortriptyline (PAMELOR) 50 mg capsule 04/02/2024 at Bedtime -- 12/06/17 -- Take 100 mg by mouth at bedtime. omeprazole (PriLOSEC) [address] capsule 04/02/2024 at Evening -- 09/25/15 -- Take 40 mg by mouth every evening. oxyCODONE (ROXICODONE) 5 mg immediate release tablet at Morning -- 02/16/23 -- Take 1 tablet (5 mg total) by mouth every 6 (six) hours as needed for severe pain or score 7-10 of 10 Indication: Acute Pain Exception. for pain pramipexole (Mirapex) 1 mg tablet 04/02/2024 at Bedtime -- -- -- Take 1 mg by mouth 2 (two) times a day. 1 mg at 3pm and 1 mg between 9 and 10 pm daily. rOPINIRole (Requip) 1 mg tablet 04/02/2024 at Bedtime -- -- -- Take 1 mg by mouth at bedtime. sennosides (Senokot) 8.6 mg tablet 04/02/2024 at Bedtime -- -- -- Take 8.6 mg by mouth at bedtime. sodium bicarbonate 650 mg tablet 04/03/2024 at 7:00 AM -- -- -- Take 650 mg by mouth 2 (two) times a day. UNABLE TO FIND at Morning -- -- -- Inject 1 each under the skin continuously. Insulin aspart pump. [employer] [place] documented in this encounter Consult Notes * Regina Schmidt APRN, C.N.P., M.S.N. - 04/03/2024 3:17 PM CSTAssociated Order(s): Nephrology consult (hospital) NEPHROLOGY CONSULT SERVICE - CONSULT NOTE Hospital Day 0 SUBJECTIVE Nephrology consult (hospital) Referring Provider: Michelle Meier APRN, C.N.P., M.S.N. 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 HISTORY OF PRESENT ILLNESS Mr. Walton is a 74 y.o. male who has a history of end stage 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 maintained on peritoneal dialysis since 2022. Other past medical history includes, but is not limited to: severe peripheral arterial disease, chronic left footwound, type 2 diabetes with highly variable blood sugars, hypertension and depression. He has been admitted for a planned endovascular angioplasty with possible stenting. Mr. Walton normally undergoes peritoneal dialysis 7 nights a week at home. His [facility] dialysisis managed [facility] under the direction of Dr. Menon. His outpatient dialysis prescription includes: CCPD; 8 hours; 4 exchanges; 2.5 L fill volume; 1.5%, 2.5%, and 4.25% glucose; No day dwell. Outpatient dialysis medications include: Mircera 125 mcg IV every 3-4 wee ks, this was due to start this week, recently received 100 mcg subcutaneous Mircera on 03/13/2024, Venofer 100 mg mg IV once monthly. His estimated dry weight is 85 kg. Mr. Walton has been consulted for PD needs however he is currently in the operating room. I have placed PD orders per his regular outpatient routine. To be safe I am ordering 1.5% Dianeal only. We can re-assess volume status tomorrow. No charge will be associated with this note as I am not able to physically examine the patient given he is in the OR. REVIEW OF SYSTEMS Pertinent items are noted in HPI; all other review of systems was negative. OBJECTIVE Admission Weight: 87.1 kg Current Weight: 87.1 kg I/O 04/02 0000 04/02 23504/03 0000 04/03 235 Intermittent Medications 100 Total Intake(mL/kg) 100 (1.1) Net +100 VITAL SIGNS Temperature: [36.6 ??C] 36.6 ??C Resp Rate: [18] 18 Blood Pressure: (189)/(68) 189/68 SpO2: [98 %] 98 % Pulse Rate: [90] 90 PHYSICAL EXAM Not able to be physically examined due to being in the OR. DIAGNOSTICS Last 2 results Lab Units 04/03/24 1319 04/03/24 1318 SODIUM P mmol/L 133* -- SODIUM VENOUS mmol/L -- 135 POTASSIUM P mmol/L 4.4 -- BICARBONATE PLASMA mmol/L 21* -- BUN P mg/dL 72* -- CREATININE mg/dL 5.53* -- CALCIUM P mg/dL 8.5* -- I have reviewed: Prior to admission medication list, current medication list, outpatient dialysis records, vital signs, intake/output, and recent diagnostic testing. 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 As Mr. Walton has not developed immunity to hepatitis B, per dialysis guidelines, he requires monthly hepatitis B surface antigen monitoring. His most recent hepatitis B surface antigen was negative on 03/29/2024. # Dialysis consent Mr. Walton will continue with peritoneal dialysis tonight with the following prescription: CCPD; 8hours; 4 exchanges; 2.5 L fill volume; 1.5% glucose; NO day dwell as his usually outpatient routine. NO CHARGE will be associated with this note as he was in the OR and was not physically examined today. Please take note there is increased risk for side effects with Robaxin use including excessive drowsiness. Please monitor closely. Remaining recommendations are outlined below. Additional Recommendations: -- Peritoneal dialysis 7 nights/week -- Obtain renal function panel daily (phosphorus) -- Diet renal dialysis diet with 1.5 L fluid restriction -- Dialyvite, one tablet orally each evening -- Sodium bicarbonate 650 mg p.o. b.i.d. -- Calcium citrate 950 mg p.o. daily (200 mg PO) -- Calcium acetate 1334 mg PO TID with meals. This medication may be held if he is NPO at any time -- Ferrous sulfate 325 mg p.o. daily -- Furosemide 160 mg p.o. b.i.d. -- Outpatient BP management: Carvedilol 50 mg p.o. b.i.d., lisinopril 20 mg p.o. daily, furosemide 160 mg p.o. b.i.d. -- Continue PRN bowel medications for constipation, as this can negatively impact the function of the PD catheter -- Gentamicin 0.1 % cream to be applied to PD catheter exit site daily. -- Please have nursing staff clean exit site with soap and water daily prior to applying gentamicincream to site and cover with gauze dressing. -- In the outpatient setting he receives Mircera 120 mcg subcutaneous every 3-4 weeks (not yet started but is due- received 100 mcg Aranesp on 03/13/2024). Given anticipated short duration of stay wewill not administer in this in the hospital as it is [facility] non formulary. Nephrology will order and manage. -- Venofer 100 mg IV once monthly last given on 03/20/2024. Nephrology will order and manage. -- Daily weights -- Strict I/O -- Avoid hypotension, maintain MAP > 65 mmHg -- Renally dose all medications for ESKD and peritoneal dialysis dependence Disposition Planning: -- Please keep Nephrology informed regarding dismissal plans as they become known so we can ensure all outpatient dialysis needs have been accommodated prior to dismissal -- Outpatient PD is managed by [facility] Mr. Walton's case has been staffed with Dr. Duvall, Nephrology home planning consultant salesperson. For questions or concerns, please contact Nephrology A [employer] pager ([phone]). [employer] documented in this encounter Nursing Notes * Norman Hawkins R.N. - 04/04/2024 6:33 AM CST Shift Goals: Clinical Goals for the Shift: Pt will report adequate rest Identify possible barriers to meeting goals/advancing plan of care: none End of Shift Summary: Pt goal met. Problem: SAFETY ADULT Goal: Maintain a safe environment Outcome: Not Progressing Problem: SAFETY ADULT - RISK FOR FALL AND OR FALL INJURY Goal: Patient remains free from fall/fall injury Outcome: Not Progressing [employer] documented in this encounter OR Notes * Op Note - Kemar Velásquez M.B.B.S. - 04/04/2024 8:06 AM CST Pre-op Diagnosis Peripheral Arterial Disease (HCC) 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) Post-op Diagnosis Peripheral Arterial Disease (HCC) 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) Outreach Counselor A certified first assistant actively participated and was necessary for one or more of the following: opening, exposure and visualization, maintaining hemostasis, wound closure resulting in its safe and expeditious completion. Findings As expected Complications None Operative Note Narrative Patient was brought to the operating room and placed in supine position. Monitored anesthesia care was administered. Right leg and left groin were prepped and draped. Antibiotics were given and time out was performed. Ultrasound guided left femoral arterial access was obtained and a 5 fr pinnacle placed. Heparin wasgiven. An omniflush was used to go up and over and a 5-45 Ang sheath placed in the right common femoral artery. Right leg angiogram was performed. There were tandem stenoses in the right SFA including an in-stent stenosis, roughly 90%. Plain balloon, followed by drug coated balloon angioplasty was performed over 220 mm length of SFA using [place] balloon. Completion angiogram showed excellent luminal gain, no dissection, no distal embolization and a 3 vessel run-off, mainly via peroneal and PT. Plantar arteries were also patent. The sheath was removed, protamine given slowly and pressure held for 30 minutes. Lilia Renee. [employer] [place] * Brief Op Note - Cristal Pfeiffer D.O. - 04/04/2024 8:06 AM CST Pre-op Diagnosis Peripheral Arterial Disease (HCC),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) Post-op Diagnosis Peripheral Arterial Disease (HCC),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) Findings Right lower extremity angiogram with balloon angioplasty of in-stent stenosis via left femoral access. Post-Op: - Bedrest 6 hours post op Complications None Cristal Pfeiffer D.O. [employer] [place] * Op Note - Theodore Crocker M.D. 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) Findings Left Common Femoral: Widely patent Profunda Femoris: Widely patent Superficial Femoral: Occluded shortly after its takeoff and remains occluded throughout its length Popliteal: Reconstitution at the P1 segment via profunda collaterals Tibioperoneal Trunk: Patent with diffuse calcific disease Anterior Tibial: Diseased proximally, widely patent throughout the calf, but occludes at the level of the ankle and does not continue into the dorsalis pedis Peroneal: Patent to just above the ankle Posterior Tibial:Diseased proximally but patent onto the foot where it supplies the plantar arch Right Common Femoral: Widely patent Profunda Femoris: Widely patent Superficial Femoral: Patent with several areas of calcific disease causing moderate stenosis, one area of short segment occlusion vs high grade stenosis in the distal thigh Popliteal:Widely patent through all segments Tibial and pedal vessels are not well visualized on this angiogram taken from ipsilateral retrograde femoral access, but there does appear to be 3-vessel runoff with PT continuing past the ankle, AT and peroneal patent to around the level of the ankle. Complications None Operative Note Narrative The patient was met in the preoperative holding area and all questions were answered. Consent for surgery was confirmed. He was taken to the operating room and placed on the operating table in the supine position. Monitored anesthesia care was induced. We began the procedure by performing an ultrasound of the right common femoral artery. This was found to be patent. Under direct ultrasound visualization, and after injection of 1% lidocaine and blunt spreading of subcutaneous tissues, the right common femoral artery was accessed with a micropuncture needle and a Nitrix wire was advanced into the iliac artery without difficulty. Imaging of the real-time ultrasound-guided access showing needleentry into the common femoral artery were saved in the patient's permanent medical record for documentation. Fluoroscopy was used to confirm the appropriate level of the arterial puncture over the femoral head. A micropuncture sheath was then inserted and exchanged to a 4 [place] sheath. An Omni Flush catheterwas then advanced into the abdominal aorta and was used to cannulate the left common iliac artery using a soft angled Glidewire. The wire was advanced into the left external iliac artery, a 2nd ordervessel. A glide catheter was used to go up and over the aortic bifurcation and was parked at the top of the left femoral head. Sequential left lower extremity angiograms were then performed with the findings above. The patient was heparinized and ACT's checked throughout the remainder of the case to insure adequate anticoagulation. A 6x45 Ang sheath was then advanced over the aortic bifurcation using a stiff wire and support from an 8mm balloon inflated in the distal external iliac artery. The sheath was positioned at the femoral head. Using glide catheter and glidewire, the long segment SFA occlusion wascarefully crossed. Angiography confirmed we were in the true lumen of the artery once passed the lesion. A V18 wire was used to secure access across the lesion. The lesion was then pre- dilated with 6mm x 220mm plain old balloon angioplasty with good luminal gain. The lesion was then treated with 6mm x 200 mm, 6mm x 150mm, and 6mm x 40mm drug coated balloons for 3 minute application time each. Completion angiography demonstrated good luminal gain and patent outflow vessels with no evidence of dissection, perforation or embolization. The Ang sheath was then withdrawn over support of a wire, positioned just above the right femoral head, and diagnostic images were obtained of the right lower extremity with findings as detailed above. Manual pressure was held over the right femoral arteriotomy until hemostasis was confirmed. Of note, following administration of protamine the patient had a drop in blood pressure and also developed chest pain and shortness of breath. The groin access site remained soft, 12 lead EKG obtained in OR was reassuring and symptoms resolved with gentle resuscitation by anesthesia team. The patient was then transported to PACU in stable condition. Theodore Crocker M.D. Cosigned by Kemar Velásquez M.B.B.S. at 04/03/2024 10:10 PM [employer] E [employer]RE [place]SHAL E FIRE [place]SHAL * Brief Op Note - Theodore Crocker M.D. 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 POBA + DCB of long segment occlusion left SFA. Manual pressure held at case completion. Protamine reaction with associated drop in blood pressure, nausea, chest pain, resolved prior to leaving OR. Complications None Aftercare -Flat for 6 hours (until 11:30pm) -Neurovascular checks of the leg q15 minutes for the first hour, hourly after that -Groin checks for hematoma/pseudoaneurysm -Admit to Dr. Velásquez service, PCU status overnight -Plavix load later tonight following groin check by service Theodore Crocker M.D. LOWER EXTREMITY PVI Side of intervention: Left Indication:tissue loss Pathology: occlusive disease Primary access: Right Retrograde femoral Largest Sheath size: 6 Fr Guidance: ultrasound Closure device: manual pressure Other access: No Fluoro Time: 38.5 DAP: 37.03 Contrast volume: 217mL of 106.7 mg/mL Patent Outflow Arteries at Completion Proximal: Profunda femoris artery and Popliteal artery Distal: Anterior Tibial Artery, Posterior Tibial Artery, and Peroneal Artery TASC Classification: Femoral-popliteal: D Arteries Treated: Artery treated: SFA Prior Tx Site?: stent Artery calcification: severe Technical result: Successful Total treatment length: 30 cm Occlusion length (enter zero for stenosis only): 25 cm Treatment type: POBA and DCB Adjuncts: None Popliteal aneurysm: no Additional Vessels Treated? No E FIRE MARSHAL E FIRE MARSHAL documented in this encounter Miscellaneous Notes * Hospital Course - Michelle Meier APRN, C.N.P., M.S.N. 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 Walton was admitted to Dr. Velásquez's surgical service following left lower extremity angiogram with balloon on 04/03/2024 and right lower extremity angiogram with balloon angioplasty of previous stent on 04/04/2024. He tolerated the procedures well and was transferred to the vascular surgical unit postoperatively. ECG and troponins were negative for myocardial ischemia. . Bilateral groin punctures well approximated with no hematomas. Bilateral lower extremity distal peripheral vessels with signals. Neurological exam was at baseline. At the time of dismissal, he was tolerating a general diet, mobilizing, and urinating without difficulty. Aspirin was continued throughout the perioperative course and should be continued lifelong. Plavix therapy was loaded and should continue for at least 3 months. # Right foot ulcer Continue to follow with local wound care for management of right plantar foot wound. It is recommended you try to limit any weight to right foot until wound is healed. # Hyperlipidemia # Hypertension NOS Mr. Walton was continued on previous statin therapy. Continue to follow-up with primary care for ongoing monitoring. # Sleep Apnea Oxygen saturations were closely monitored postoperatively. At the time of dismissal, he was saturating well on room. # Diabetes Mellitus Type 2 With Other Circulatory Complication ([facility]) # Chronic Kidney Disease Stage 5 Glomerular Filtration Rate Less Than 15 ([facility]) Home medications were resumed as clinically indicated. Nephrology was consulted and peritoneal dialysis was continued. Ongoing management of chronic medical conditions per primary care provider. E FIRE MARSHAL E FIRE MARSHAL E FIRE MARSHAL E FIRE MARSHAL E FIRE MARSHAL E FIRE MARSHAL E FIRE MARSHAL E FIRE MARSHAL documented in this encounter Plan of Treatment Upcoming Encounters Date Type Department Care Team (Late st Contact Info) Description 05/10/2024 8:30 AM [employer] Appointment Department of Radiology, [facility] in [address] [id number] Kemar Velásquez M.B.B.S. [address] [place] [phone] Discharge Disposition: Home or Self Care 05/10/2024 9:30 AM [employer] Appointment Department of Vascular Medicine in [address] [phone] Kemar Velásquez M.B.B.S. [address] [place] [phone] documented as of this encounter Procedures Procedure Name Priority Date/Time Associated Diagnosis Comments IR IMAGING RAD - Routine (most inpatients and all outpatients) 04/04/2024 9:42 AM [employer] Peripheral Arterial Disease (HCC) 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) ACT, POCT, B Routine 04/04/2024 8:47 AM [employer] ANGIOPLASTY/STENT ENDOVASCULAR FEMORAL AND/OR POPLITEAL AND/OR TIBIAL ARTERY 04/04/2024 7:16 AM [employer] Peripheral Arterial Disease (HCC) 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) CBC WITHOUT DIFFERENTIAL, B Timed 04/04/2024 4:22 AM [employer] TROPONIN T, 5TH GEN, P Timed 04/04/2024 4:22 AM [employer] BASIC METABOLIC PANEL, S/P Timed 04/04/2024 4:22 AM [employer] TROPONIN T, 6H, 5TH GEN, P Timed 04/04/2024 12:10 AM [employer] TROPONIN T, 2H/6H REFLEX, 5TH GEN, P Timed 04/03/2024 8:18 PM [employer] ADULT OXYGEN THERAPY Routine 04/03/2024 6:43 PM [employer] ADULT OXYGEN THERAPY Routine 04/03/2024 6:43 PM [employer] TROPONIN T, BASELINE, 5TH GEN, P STAT 04/03/2024 6:04 PM [employer] CBC WITH DIFFERENTIAL, B STAT 04/03/2024 6:04 PM [employer] PHOSPHORUS (INORGANIC), S STAT 04/03/2024 6:04 PM [employer] MAGNESIUM, S STAT 04/03/2024 6:04 PM [employer] BASIC METABOLIC PANEL, S/P STAT 04/03/2024 6:04 PM [employer] IR IMAGING RAD - Routine (most inpatients and all outpatients) 04/03/2024 5:17 PM [employer] Peripheral Arterial Disease (HCC) 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) DX CHEST PORTABLE 1 VIEW RAD - Emergent (Fastest; for the most critically ill patients) 04/03/2024 5:11 PM [employer] ECG STAT 04/03/2024 4:55 PM [employer] ACT, POCT, B Routine 04/03/2024 4:43 PM [employer] HEMOGLOBIN (HGB), POCT, B Routine 04/03/2024 4:40 PM [employer] CONTINUOUS CYCLING PERITONEAL DIALYSIS (CCPD) Routine 04/03/2024 4:26 PM [employer] ACT, POCT, B Routine 04/03/2024 3:20 PM [employer] ANGIOPLASTY/STENT ENDOVASCULAR FEMORAL AND/OR POPLITEAL AND/OR TIBIAL ARTERY 04/03/2024 1:21 PM [employer] Peripheral Arterial Disease (HCC) 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) Case Notes MOLDER CLOSED MOLDS 1106 HEMOGLOBIN A1C, B STAT 04/03/2024 1:1 9 PM [employer] BASIC METABOLIC PANEL, S/P STAT 04/03/2024 1:19 PM [employer] GLUCOSE, VENOUS, B STAT 04/03/2024 1: 18 PM [employer] POTASSIUM, VENOUS, B STAT 04/03/2024 1:18 PM [employer] CALCIUM, IONIZED, VENOUS, B STAT 04/03/2024 1:18 PM [employer] LACTATE, VENOUS, B STAT 04/03/2024 1: 18 PM [employer] SODIUM, VENOUS, B STAT 04/03/2024 1:1 8 PM [employer] PATIENT STATUS STAT 04/03/2024 1:18 PM [employer] VENOUS BLOOD GAS W/COOX, B STAT 04/03/2024 1:18 PM [employer] GLUCOSE POCT, B Routine 04/03/2024 1:13 PM [employer] MISC RESEARCH ORDER, B Routine 04/03/2024 11:20 AM [employer] documented in this encounter Results * IR IMAGING (04/04/2024 9:42 AM [employer]) Anatomical Region Laterality Modality N/A Other Narrative 04/05/2024 7:12 AM [employer] Performed by surgeon - see Op Note for result. us Kemar Reyes IMG IR PROCEDURES Final Res ult * (ABNORMAL) ACT (Activated Clotting Time), POCT (04/04/2024 8:47 AM [employer]) Activated Clotting Time 262(H) 82 - 152 sec 04/04/2024 8:48 AM [employer] PCLX 04/04/2024 8:47 AM [employer] 04/04/2024 8:49 AM [employer] us Unknown Provider LAB POCT ORDERABLES - DEVICE Fi nal Result Performing Organization Address [facility] Co de Phone Number POC [facility] [address] PCLX [facility] POC [address] [place] [address] * (ABNORMAL) Troponin T, 5th Generation (04/04/2024 4:22 AM [employer]) Pathologist [facility] Troponin T, 5th gen 155(H) <=15 ng/L 04/04/2024 4:56 AM [employer] RUSTA Comment:Consider acute myoca rdial injury Blood (Blood, Venous) 04/04/2024 4:22 AM [employer] 04/04/2024 4:39 AM [employer] us Bry Choudhury M.D. LAB BLOOD ADD-ON Final R esult Performing Organization Address City/[facility]/ZIP Co de Phone Number [facility] 200 [place], [place] [phone] [place] [address] STMA [facility] 200 [place] [address] * (ABNORMAL) Basic Metabolic Panel (04/04/2024 4:22 AM [employer]) Pathologist [facility] Potassium, S 4.1 3.6 - 5.2 mmol/L 04/04/2024 5:47 AM [employer] DTL Sodium, S 136 135 - 145 mmol/L 04/04/2024 5:47 AM [employer] DTL Chloride, S 97(L) 98 - 107 mmol/L 04/04/2024 5:47 AM [employer] DTL Bicarbonate, S 20(L) 22 - 29 mmol/L 04/04/2024 5:47 AM [employer] DTL Anion Gap 19(H) 7 - 15 04/04/2024 5:47 AM [employer] DTL BUN (Blood Urea Nitrogen), S 67(H) 8 - 24 mg/dL 04/04/2024 5:47 AM [employer] DTL Creatinine 5.68(H) 0.74 - 1.35 mg/dL 04/04/2024 5:47 AM [employer] DTL Estimated GFR (eGFR) <15(L) >=60 mL/min/BSA 04/04/2024 5:47 AM [employer] DTL Comment: Estimated GFR calculated using the 2020 CKD_EPI creatinine equation. Calcium, Total, S 7.8(L) 8.8 - 10.2 mg/dL 04/04/2024 5:47 AM [employer] DTL Glucose, S 172(H) 70 - 140 mg/dL 04/04/2024 5:47 AM [employer] DTL Blood (Blood, Venous) 04/04/2024 4:22 AM [employer] 04/04/2024 5:10 AM [employer] Theodore Crocker M.D. LAB BLOOD ADD-ON Final Res ult [facility] [address] [place] [address], [facility] [address] [place] [address] * (ABNORMAL) CBC without Differential (04/04/2024 4:22 AM [employer]) Pathologist [facility] Hemoglobin 10.5(L) 13.2 - 16.6 g/dL 04/04/2024 5:33 AM [employer] [facility] Hematocrit 31.7(L) 38.3 - 48.6 % 04/04/2024 5:33 AM [employer] DHPM Erythrocytes 3.09(L) 4.35 - 5.65 x10(12)/L 04/04/2024 5:33 AM [employer] DHPM MCV 102.6(H) 78.2 - 97.9 fL 04/04/2024 5:33 AM [employer] DHPM RBC Distrib Width 14.6(H) 11.8 - 14.5 % 04/04/2024 5:33 AM [employer] DHPM Platelet Count 236 135 - 317 x10(9)/L 04/04/2024 5:33 AM [employer] DHPM Leukocytes 9.4 3.4 - 9.6 x10(9)/L 04/04/2024 5:33 AM [employer] DHPM Blood (Blood, Venous) 04/04/2024 4:22 AM [employer] 04/04/2024 4:58 AM [employer] Theodore Crocker M.D. LAB BLOOD ADD-ON Final Res ult Performing Organization Address City/[facility]/ZIP Co de Phone Number [facility] [address] [place] [address], [facility] DHPM [facility] [address] [place] [address] * (ABNORMAL) Troponin T, 6h, 5th Gen (04/04/2024 12:10 AM [employer]) Troponin T, 6 hr, 5th gen 158(H) <=15 ng/L 04/04/2024 12:36 AM [employer] STMA Comment:Consider acute myoca rdial injury 6H Delta % 10 % 04/04/2024 12:36 AM [employer] STMA 6H Delta Interp Not Changing 04/04/2024 12:36 AM [employer] STMA Blood 04/04/2024 12:1 0 AM [employer] 04/04/2024 12:17 AM [employer] us Theodore Crocker M.D. LAB BLOOD TROPONIN Final R esult Performing Organization Address City/[facility]/ZIP Co de Phone Number [facility] [address] [place], [place] [phone] [place] [address] STMA [facility] 200 [place] [address] * (ABNORMAL) Troponin T, 2 Hour with 6 Hour Reflex, 5th Gen (04/03/2024 8:18 PM [employer]) Pathologist [facility] Troponin T, 2 hr, 5th gen 135(H) <=15 ng/L 04/03/2024 8:51 PM [employer] [facility] Comment:Consider acute myoca rdial injury 2H Delta % -6 % 04/03/2024 8:51 PM [employer] [facility] Comment:6 hour collection pe nding. 2H Delta Interp Not Changing 04/03/2024 8:51 PM [employer] [facility] Blood 04/03/2024 8:18 PM [employer] 04/03/2024 8:27 PM [employer] Theodore Crocker M.D. LAB BLOOD TROPONIN Final R esult Performing Organization Address City/[facility]/ZIP Co de Phone Number [facility] 200 [place] [address] * (ABNORMAL) Troponin T, Baseline with 2 Hour/6 Hour Reflex Biomarker Panel (04/03/2024 6:04 PM [employer]) [facility] Troponin T, Baseline, 5th gen 143(H) <=15 ng/L 04/03/2024 6:42 PM [employer] [facility] Comment:Consider acute myoca rdial injury Blood (Blood, Venous) 04/03/2024 6:04 PM [employer] 04/03/2024 6:14 PM [employer] us Theodore Crocker M.D. LAB BLOOD [place] [address] * (ABNORMAL) Phosphorus Inorganic (04/03/2024 6:04 PM [employer]) Pathologist [facility] Phosphorus (Inorganic), P 7.6(H) 2.5 - 4.5 mg/dL 04/03/2024 8:26 PM [employer] DTL Blood (Blood, Venous) 04/03/2024 6:04 PM [employer] 04/03/2024 6:14 PM [employer] Theodore Crocker M.D. LAB BLOOD ADD-ON Final Res ult Performing Organization Address City/[facility]/ZIP Co de Phone Number [facility] [address] [place] [address], [facility] DTL [facility] [address] [place] [address] * Magnesium (04/03/2024 6:04 PM [employer]) Pathologist [facility] Magnesium, P 1.9 1.7 - 2.3 mg/dL 04/03/2024 6:33 PM [employer] STMA Blood (Blood, Venous) 04/03/2024 6:04 PM [employer] 04/03/2024 6:14 PM [employer] Theodore Crocker M.D. LAB BLOOD ADD-ON Final Res ult Performing Organization Address [facility] Co de Phone Number [facility] [address] [place] [address], [facility] STMA [facility] [address] [place] [address] * (ABNORMAL) Basic Metabolic Panel (04/03/2024 6:04 PM [employer]) Potassium, P 4.6 3.6 - 5.2 mmol/L 04/03/2024 6:33 PM [employer] STMA Sodium, P 134(L) 135 - 145 mmol/L 04/03/2024 6:33 PM [employer] STMA Chloride, P 95(L) 98 - 107 mmol/L 04/03/2024 6:33 PM [employer] STMA Bicarbonate, P 21(L) 22 - 29 mmol/L 04/03/2024 6:33 PM [employer] STMA Anion Gap, P 18(H) 7 - 15 04/03/2024 6:33 PM [employer] STMA BUN (Blood Urea Nitrogen), P 75(H) 8 - 24 mg/dL 04/03/2024 6:33 PM [employer] STMA Creatinine 5.53(H) 0.74 - 1.35 mg/dL 04/03/2024 6:33 PM [employer] STMA Estimated GFR (eGFR) <15(L) >=60 mL/min/BSA 04/03/2024 6:33 PM [employer] STMA Comment: Estimated GFR calculated using the 2020 CKD_EPI creatinine equation. Calcium, Total, P 8.3(L) 8.8 - 10.2 mg/dL 04/03/2024 6:33 PM [employer] STMA Glucose, P 135 70 - 140 mg/dL 04/03/2024 6:33 PM [employer] STMA Blood (Blood, Venous) 04/03/2024 6:04 PM [employer] 04/03/2024 6:14 PM [employer] us Theodore Crocker M.D. LAB BLOOD ADD-ON Final Res ult [facility] [address] [place] [address], [facility] [address] [place] [address] * (ABNORMAL) CBC with Differential, Blood (04/03/2024 6:04 PM [employer]) Hemoglobin 10.7(L) 13.2 - 16.6 g/dL 04/03/2024 6:18 PM [employer] STMA Hematocrit 32.9(L) 38.3 - 48.6 % 04/03/2024 6:18 PM [employer] STMA Erythrocytes 3.19(L) 4.35 - 5.65 x10(12)/L 04/03/2024 6:18 PM [employer] STMA MCV 103.1(H) 78.2 - 97.9 fL 04/03/2024 6:18 PM [employer] STMA RBC Distrib Width 14.6(H) 11.8 - 14.5 % 04/03/2024 6:18 PM [employer] STMA Platelet Count 249 135 - 317 x10(9)/L 04/03/2024 6:18 PM [employer] STMA Leukocytes 12.0(H) 3.4 - 9.6 x10(9)/L 04/03/2024 6:18 PM [employer] STMA Neutrophils 10.34(H) 1.56 - 6.45 x10(9)/L 04/03/2024 6:18 PM [employer] DHPM Lymphocytes 0.75(L) 0.95 - 3.07 x10(9)/L 04/03/2024 6:18 PM [employer] STMA Monocytes 0.49 0.26 - 0.81 x10(9)/L 04/03/2024 6:18 PM [employer] STMA Eosinophils 0.35 0.03 - 0.48 x10(9)/L 04/03/2024 6:18 PM [employer] STMA Basophils 0.04 0.01 - 0.08 x10(9)/L 04/03/2024 6:18 PM [employer] STMA Blood (Blood, Venous) 04/03/2024 6:04 PM [employer] 04/03/2024 6:14 PM [employer] us Theodore Crocker M.D. LAB BLOOD ADD-ON Final Res ult [facility] [address] [place] [address], [facility] STMA [facility] [address] [place] [address] DHPM [facility] [address] [place] [address] * IR IMAGING (04/03/2024 5:17 PM [employer]) Anatomical Region Laterality Modality N/A Other Narrative 04/04/2024 1:17 PM [employer] Performed by surgeon - see Op Note for result. Kemar MerchantSFei IMG IR PROCEDURES Final Res ult * DX Chest Portable 1 View (04/03/2024 5:11 PM [employer]) Anatomical Region Laterality Modality Chest, Thoracic RST LOS, Tho racic ARZ LOS, Thoracic FLA LOS N/A Digital Radiography Impressions 04/03/2024 5:25 PM [employer] Since 11/17/2022, new suspected diffuse interstitial pulmonary edema throughout both lungs. Probable trace right pleural effusion. Low lung volumes and lordotic positioning accentuate the cardiac silhouette and pulmonary vascularity. Otherwise no change. Aortic calcification. Degenerative changes of the spine. Narrative 04/03/2024 5:25 PM [employer] EXAM: DX CHEST PORTABLE 1 VIEW Procedure [...] * ECG 12 Lead (04/03/2024 4:55 PM [employer]) Ventricular Rate ECG/Min 95 BPM MUSE SD Interval 134 ms MUSE QRSD Interval 134 ms MUSE QT Interval 396 ms MUSE QTC Interval 497 ms MUSE P [place] 69 degrees MUSE R [place] -25 degrees MUSE T Wave [place] 75 degrees MUSE 04/03/2024 4:55 PM [employer] 04/03/2024 5:18 PM [employer] Impressions MUSE - 04/03/2024 5:18 PM [employer] Normal sinus rhythm Right bundle branch block with secondary ST-T abnormalities When compared with ECG of 05-Mar-2024 11:03, No significant change was found Reviewed by JUAREZ Bingham Narrative Procedure Note Albino Gutierrez M.D. - 04/03/2024 IMPRESSION: Normal sinus rhythm Right bundle branch block with secondary ST-T abnormalities When compared with ECG of 05-Mar-2024 11:03, No significant change was found Reviewed by JUAREZ Bingham Theodore Crocker M.D. ECG ORDERABLES Final Resu lt MUSE NA * (ABNORMAL) ACT (Activated Clotting Time), POCT (04/03/2024 4:43 PM [employer]) Activated Clotting Time, POCT 166(H) 84 - 139 sec 04/03/2024 4:44 PM [employer] PCSM Blood 04/03/2024 4:43 PM [employer] 04/03/2024 4:45 PM [employer] us Unknown Provider LAB POCT ORDERABLES - DEVICE Fi nal Result Performing Organization Address [facility] Co de Phone Number POC [facility] [address] [place] [address], [facility] [address] [place] [id number] * (ABNORMAL) Hemoglobin (HGB), POCT (04/03/2024 4:40 PM [employer]) Hemoglobin, POCT, B 10.1(L) 13.2 - 16.6 g/dL 04/03/2024 4:45 PM [employer] PCSM Blood 04/03/2024 4:40 PM [employer] 04/03/2024 4:45 PM [employer] us Unknown Provider LAB POCT ORDERABLES - DEVICE Fi nal Result Performing Organization Address [facility] Co de Phone Number POC [facility] [address] [place] [address], [facility] PCSM [facility] POC [address] [place] [address] * (ABNORMAL) ACT (Activated Clotting Time), POCT (04/03/2024 3:20 PM [employer]) Activated Clotting Time, POCT 319(H) 84 - 139 sec 04/03/2024 3:21 PM [employer] PCSM Blood 04/03/2024 3:20 PM [employer] 04/03/2024 3:21 PM [employer] us Unknown Provider LAB POCT ORDERABLES - DEVICE Fi nal Result Performing Organization Address City/[facility] Co de Phone Number POC [facility] [address] [place] [address], [place] PCSM [facility] POC [address] [place] [address] * (ABNORMAL) Basic Metabolic Panel (04/03/2024 1:19 PM [employer]) Potassium, P 4.4 3.6 - 5.2 mmol/L 04/03/2024 1:41 PM [employer] STMA Sodium, P 133(L) 135 - 145 mmol/L 04/03/2024 1:41 PM [employer] STMA Chloride, P 93(L) 98 - 107 mmol/L 04/03/2024 1:41 PM [employer] STMA Bicarbonate, P 21(L) 22 - 29 mmol/L 04/03/2024 1:41 PM [employer] STMA Anion Gap, P 19(H) 7 - 15 04/03/2024 1:41 PM [employer] STMA BUN (Blood Urea Nitrogen), P 72(H) 8 - 24 mg/dL 04/03/2024 1:41 PM [employer] STMA Creatinine 5.53(H) 0.74 - 1.35 mg/dL 04/03/2024 1:41 PM [employer] STMA Estimated GFR (eGFR) <15(L) >=60 mL/min/BSA 04/03/2024 1:41 PM [employer] STMA Comment: Estimated GFR calculated using the 2020 CKD_EPI creatinine equation. Calcium, Total, P 8.5(L) 8.8 - 10.2 mg/dL 04/03/2024 1:41 PM [employer] STMA Glucose, P 136 70 - 140 mg/dL 04/03/2024 1:41 PM [employer] STMA Blood (Blood, Venous) 04/03/2024 1:19 PM [employer] 04/03/2024 1:24 PM [employer] us Vida Rodriguez M.D., Ph.D. LAB BLOOD ADD-ON Final Result [facility] [address] [place] [address], [facility] STMA [facility] [address] [place] [address] * (ABNORMAL) Hemoglobin A1c (04/03/2024 1:19 PM [employer]) Pathologist [facility] Hemoglobin A1c, B 7.0(H) 4.0 - 5.6 % 04/03/2024 2:34 PM [employer] DTL Comment: Hemoglobin A1c values greater than or equal to 6.5 percent are diagnostic for diabetes mellitus. Diagnosis should be confirmed by repeat testing. In diabetic patients, HbA1c goals should be discussed with healthcare provider. Blood (Blood, Venous) 04/03/2024 1:19 PM [employer] 04/03/2024 2:17 PM [employer] Cristal Pfeiffer D.O. LAB BLOOD ADD-ON Final Result Performing Organization Address City/[facility]/ZIP Co de Phone Number [facility] [address] [place] [address] * Patient Status (04/03/2024 1:18 PM [employer]) [facility] FIO2 0.21 0.21=AIR 04/03/2024 1:24 PM [employer] STMA Spont. breaths/min 20 04/03/2024 1:24 PM [employer] STMA Blood 04/03/2024 1:18 PM [employer] 04/03/2024 1:24 PM [employer] Stacy Guerrero APRN, CRNA, D.N.P. LAB BLO OD NON ADD-ON Final Result Performing Organization Address City/[facility]/ZIP Co de Phone Number [facility] 200 [place], [place] [phone] [place] [address] STMA [facility] 200 [place] [address] * Lactate, Venous, Blood (04/03/2024 1:18 PM [employer]) [facility] Lactate, Venous, B 1.5 0.5 - 2.2 mmol/L 04/03/2024 1:50 PM [employer] STMA Blood (Blood, Venous) 04/03/2024 1:18 PM [employer] 04/03/2024 1:24 PM [employer] Stacy Guerrero APRN, CRNA, D.N.P. LAB BLO OD ADD-ON Final Result [facility] [address] [place] [address], [facility] 200 [place] [address] * Glucose, Venous, Blood (04/03/2024 1:18 PM [employer]) Glucose, Venous, B 138 70 - 140 mg/dL 04/03/2024 1:50 PM [employer] STMA Blood (Blood, Venous) 04/03/2024 1:18 PM [employer] 04/03/2024 1:24 PM [employer] Stacy Guerrero APRN, CRNA, D.N.P. LAB BLO OD ADD-ON Final Result Performing Organization Address City/[facility]/ZIP Co de Phone Number [facility] [address] [place] [address], [facility] 200 [place] [address] * Potassium, Venous, Blood (04/03/2024 1:18 PM [employer]) Potassium, Venous, B 4.3 3.6 - 5.2 mmol/L 04/03/2024 1:54 PM [employer] STMA Blood (Blood, Venous) 04/03/2024 1:18 PM [employer] 04/03/2024 1:24 PM [employer] Stacy Guerrero APRN, CRNA, D.N.P. LAB BLO OD NON ADD-ON Final Result Performing Organization Address City/[facility]/ZIP Co de Phone Number [facility] [address] [place] [address], [facility] 200 [place] [address] * Sodium, Venous, Blood (04/03/2024 1:18 PM [employer]) Sodium, Venous, B 135 135 - 145 mmol/L 04/03/2024 1:50 PM [employer] STMA Blood (Blood, Venous) 04/03/2024 1:18 PM [employer] 04/03/2024 1:24 PM [employer] Stacy Guerrero APRN, CRNA, D.N.P. LAB BLO OD ADD-ON Final Result Performing Organization Address City/[facility]/ZIP Co de Phone Number [facility] [address] [place] [address] * Calcium, Ionized, Venous, Blood (04/03/2024 1:18 PM [employer]) Calcium, Ionized, Venous, B 4.67 4.65 - 5.30 mg/dL 04/03/2024 1:54 PM [employer] STMA Blood (Blood, Venous) 04/03/2024 1:18 PM [employer] 04/03/2024 1:24 PM [employer] Stacy Guerrero APRN, CRNA, D.N.P. LAB BLO OD NON ADD-ON Final Result Performing Organization Address [facility] Co de Phone Number [facility] [address] [place] [address] * (ABNORMAL) Blood Gas with Coox, Venous (04/03/2024 1:18 PM [employer]) pO2, Venous, B 50 Not applicable mm Hg 04/03/2024 1:26 PM [employer] STMA pCO2, Venous, B 44 41 - 51 mm Hg 04/03/2024 1:26 PM [employer] STMA pH, Venous, B 7.32 7.32 - 7.43 pH 024 1:26 PM [employer] STMA Base Excess, Venous, B -4 Not applicable mmol/L 04/03/2024 1:26 PM [employer] STMA HCO3, Venous, B 22 Not applicable mmol/L 04/03/2024 1:26 PM [employer] STMA Hemoglobin, Venous, B 11.4(L) 13.2 - 16.6 g/dL 04/03/2024 1:26 PM [employer] STMA O2Hb, Venous, B 75.2 Not applicable % 04/03/2024 1:26 PM [employer] STMA COHb, Venous, B <1.0 <3.0 % 04/03/2024 1:26 PM [employer] STMA MetHb, Venous, B 2.4(H) <1.5 % 04/03/2024 1:26 PM [employer] ST[facility] CtO2, Venous, B 12.1 Not Applicable vol % 04/03/2024 1:26 PM [employer] STMA Sample Site, Venous, B Venipunct 04/03/2024 1:24 PM [employer] STMA Blood (Blood, Venous) 04/03/2024 1:18 PM [employer] 04/03/2024 1:24 PM [employer] us Stacy Guerrero APRN, CRNA, D.N.P. LAB BLO OD NON ADD-ON Final Result [facility] [address] [place] [address], [facility] [address] [place] [address] * Glucose, POCT (04/03/2024 1:13 PM [employer]) [facility] Glucose, POCT, B 133 70 - 140 mg/dL 04/03/2024 1:16 PM [employer] PCLX Comment: Glucose results collected from venous catheters may be falsely elevated. Site Venline 04/03/2024 1:16 PM [employer] PCLX Blood 04/03/2024 1:13 PM [employer] 04/03/2024 1:16 PM [employer] us Unknown Provider LAB POCT ORDERABLES-MANUAL Mary l Result POC [facility] [address] [id number], [facility] PCLX [facility] [address] [place] [address] * [facility] Research, Blood (04/03/2024 11:20 AM [employer]) Number of Specimens 5 04/03/2024 11:20 AM [employer] HSS Blood (Blood, Venous) 04/03/2024 11:20 AM [employer] 04/03/2024 11:20 AM [employer] us Kemar Reyes LAB RESEARCH NO RESULT ROUT ING Final Result [facility] [address] [place] [address], [facility] HSS [facility] [address] [place] [address] documented in this encounter Visit Diagnoses Diagnosis Peripheral Arterial Disease (HCC)- Primary 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) 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) Wound Foot Open Initial Left Wound Foot Open Subsequent Right Peripheral Arterial Disease (HCC) 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) Peripheral Arterial Disease (HCC) 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) documented in this encounter Admitting Diagnoses Diagnosis Peripheral Arterial Disease (HCC) 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) 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) documented in this encounter Administered Medications Inactive Administered Medications - up to 3 most recent administrations Medication Order MAR Action Action Date Dose Rate Site acetaminophen tablet 1,000 mg (TylenoL) 1,000 mg, oral, 4 times daily, First dose on Tue04/03/24 at 2100 Given 04/04/2024 4:35 PM [facility] 1,000 mg Given 04/04/2024 12:45 PM [facility] 1,000 mg Given 04/03/2024 8:06 PM [facility] [facility] 1,000 mg bisacodyL suppository 10 mg (Dulcolax) 10 mg, rectal, Daily PRN, constipation, Starting on Tue04/03/24 at 1843, Ordered sequence of administration: polyethylene glycol, then bisacodyl until BM achieved. clopidogreL tablet 300 mg (Plavix) 300 mg, oral, Once, On Tue04/03/24 at 2100, For 1 dose, Plavix load after groin check and assuming no hemodynamic issues Given 04/03/2024 8:06 PM [facility] 300 mg clopidogreL tablet 75 mg (Plavix) 75 mg, oral, Daily, First dose on Tue04/04/24 at 0900 Given 04/04/2024 11:01 AM [facility] 75 mg dexAMETHasone injection 4 mg (Decadron) 4 mg, intravenous, Once as needed, nausea, vomiting, Starting on Tue04/03/24 at 1843, For 1 dose, Give only if NOT given during the pre or intraoperative period. If ondansetron ordered, give dexamethasone with first dose of ondansetron. fentaNYL injection 25 mcg (Sublimaze) 25 mcg, intravenous, Every 1 hour PRN, moderate pain or score 4-6 of 10, severe pain or score 7-10 of 10, if patient is unable to take oral analgesics, Starting on Tue04/03/24 at 1843, For 2 doses haloperidol lactate injection 1 mg (HaldoL) 1 mg, intravenous, Every 6 hours PRN, nausea, vomiting, Starting on Tue04/03/24 at 1843, For 48 hours, Total of 3 doses in 24 hour period. RASS must be -2 or higher to administer. Reassess for nausea or vomiting after at least 10 minutes. If nausea or vomiting persists administer next ordered antiemetic medications (order for antiemetic medication administration ondansetron then haloperidol then prochlorperazine) HYDROmorphone (PF) injection 0.4 mg (Dilaudid) 0.4 mg, intravenous, Every 1 hour PRN, moderate pain or score 4-6 of 10, severe pain or score 7-10 of 10, if patient is unable to take oral analgesics, Starting on Tue04/03/24 at 1843, For 1 dose, If pain score remains 4 or greater 1 hour after the second fentaNYL dose then administer HYDROmorphone. If pain remains 4 or greater after HYDROmorphone administration, call provider. labetaloL injection 10 mg 10 mg, intravenous, Once as needed, high blood pressure, per Provider instructions, Starting on Tue04/03/24 at 1744, For 1 dose, PACU (only), Follow institution's IV administration guidelines Given 04/03/2024 6:04 PM [facility] 10 mg metoprolol tablet 12.5 mg (Lopressor) 12.5 mg, oral, Once as needed, if patient did not take their last scheduled dose of beta terrell prior to arrival, Starting on Tue04/04/24 at 0712, For 1 dose, Pre-Op, Do not give if patient does not take scheduled beta blockers, if patient is receiving intravenous vasopressors or inotropes, if heart rate is less than 50 beats per minute, if systolic blood pressure is less than 90 mmHg or if diastolic blood pressure is less than 40 mmHg, or if patient has an allergy to metoprolol. Given 04/04/2024 7:26 AM [facility] 12.5 mg naloxone injection 0.2 mg (Narcan) 0.2 mg, intravenous, As needed, respiratory depression, Starting on Tue04/03/24 at 1843, For RASS Score -4 or less, respiratory rate of less than 8 breaths/min. Notify provider/service and rapid response team (if available at institution). ondansetron (PF) injection 4 mg (Zofran) 4 mg, intravenous, Every 6 hours PRN, nausea, vomiting, Starting on Tue04/03/24 at 1843, For 48 hours, Reassess for nausea or vomiting after at least 10 minutes. If nausea or vomiting persists administer next ordered antiemetic medications (order for antiemetic medication administration ondansetron then haloperidol then prochlorperazine). oxyCODONE IR tablet 10 mg (Roxicodone) 10 mg, oral, Every 4 hours PRN, severe pain or score 7-10 of 10, Starting on Tue04/03/24 at 1843, Administer if pain is unrelieved by acetaminophen. Do not give more than 10 mg of oxycodone in 4 hours. Begin oral narcotics ONLY when tolerating oral diet. Given 04/04/2024 4:35 PM [facility] 10 mg Given 04/03/2024 8:06 PM [facility] 10 mg oxyCODONE IR tablet 5 mg (Roxicodone) 5 mg, oral, Every 4 hours PRN, moderate pain or score 4-6 of 10, Starting on Tue04/03/24 at 1843, Administer if pain is unrelieved by acetaminophen. May repeat dose once after 1 hour for persistent pain not to exceed 10 mg in 4 hours. Begin oral narcotics ONLY when tolerating oral diet. Given 04/04/2024 12:44 PM [facility] 5 mg PD 1.5 % dextrose Low Ca 2.5 mEq/L- Mg 0.5 mEq/L 6,000 mL Dialysis solution intraperitoneal, Once, On Tue04/03/24 at 1800, For 1 dose, Scheduling/ADT, Refer to: [facility] ([facility]) order for therapy details Given 04/03/2024 8:55 PM [facility] [facility] PD 1.5 % dextrose Low Ca 2.5 mEq/L- Mg 0.5 mEq/L 6,000 mL Dialysis solution intraperitoneal, Once, On Tue04/03/24 at 1800, For 1 dose, Scheduling/ADT, Refer to: [facility] ([facility]) order for therapy details Given 04/03/2024 8:55 PM [facility] polyethylene glycol powder packet 1 packet (Miralax) 1 packet, oral, Daily PRN, constipation, Starting on Tue04/03/24 at 1843, Ordered sequence of administration: polyethylene glycol, then bisacodyl until BM achieved. Avoid mixing with starch-based thickened liquids. prochlorperazine injection 5 mg (Compazine) 5 mg, intravenous, Every 6 hours PRN, nausea, vomiting, Starting on Tue04/03/24 at 1843, For 48 hours, RASS must be -2 or higher to administer. Reassess for nausea/vomiting after at least 10 minutes. If nausea or vomiting persists administer next ordered antiemetic medications (order for antiemetic medication administration ondansetron then haloperidol then prochlorperazine) sennosides-docusate sodium 8.6-50 mg per tablet 1 tablet (Senokot-S) 1 tablet, oral, 2 times daily, First dose on Tue04/04/24 at 0900, Initiate ONLY when taking oral food and fluids. Do not give if patient has diarrhea or ostomy. documented in this encounter Active and Recently Administered Medications Times are shown in [facility]. Scheduled Medication Order 04/02/2024 04/03/2024 04/04/2024 acetaminophen tablet 1,000 mg (TylenoL) 1,000 mg, oral, 4 times daily, First dose on Tue04/03/24 at 2100 2005 (Given - Provider: Norman Hawkins R.N.) 0652 (J[facility] Hold - Provider: Transfer Provider, Automatic - Reason: Patient not available)0800 (Not Given - Provider: Kaylyn Fermin R.N. - Reason: Patient not available)1034 ([facility] Unhold - Provider: Transfer Provider, Automatic)1245 (Given - Provider: Kaylyn Fermin R.N.)1635 (Given - Provider: Natalie Estevez R.N., [facility]) ceFAZolin injection 2,000 mg (Ancef) (COMPLETED) 2,000 mg (rounded from 2,232.5 mg = 25 mg/kg 89.3 kg), intravenous, Once, On Tue04/03/24 at 1100, For 1 dose, Intra-Op, Administer within 1 hour prior to surgical incision For immediate IV push administration, reconstitute vial per IVAG or package insert instructions. See IVAG for administration guidelines., Drug Monitoring Program: Pharmacist to adjust medication dosing based on indication and drug clearance factors., Indications: Prophylaxis, surgical 1410 (Given - Provider: Stacy Guerrero APRN, THERAPY DIRECTOR, D.N.P.) ceFAZolin injection 2,000 mg (Ancef) (COMPLETED) 2,000 mg (rounded from 2,177.5 mg = 25 mg/kg 87.1 kg), intravenous, Once, On Tue04/04/24 at 0730, For 1 dose, Intra-Op, Administer within 1 hour prior to surgical incision For immediate IV push administration, reconstitute vial per IVAG or package insert instructions. See IVAG for administration guidelines., Drug Monitoring Program: Pharmacist to adjust medication dosing based on indication and drug clearance factors., Indications: Prophylaxis, surgical 0801 (Given - Provid er: Hui Smith R.N.) clopidogreL tablet 300 mg (Plavix) (COMPLETED) 300 mg, oral, Once, On Tue04/03/24 at 2100, For 1 dose, Plavix load after groin check and assuming no hemodynamic issues 2005 (Given - Provider: Norman Hawkins R.N.) clopidogreL tablet 75 mg (Plavix) 75 mg, oral, Daily, First dose on Tue04/04/24 at 0900 0652 ([facility] Hold - Provider: Transfer Provider, Automatic - Reason: Patient not available)1034 ([facility] Un[facility] - Provider: Transfer Provider, Automatic)1101 (Given - Provider: Kaylyn Fermin RJerad) PD 1.5 % dextrose Low Ca 2.5 mEq/L- Mg 0.5 mEq/L 6,000 mL Dialysis solution (COMPLETED) intraperitoneal, Once, On Tue04/03/24 at 1800, For 1 dose, Scheduling/ADT, Refer to: [facility] ([facility]) order for therapy details 2054 (Given - Provider: Suzie NavarroS.N., R.N.) PD 1.5 % dextrose Low Ca 2.5 mEq/L- Mg 0.5 mEq/L 6,000 mL Dialysis solution (COMPLETED) intraperitoneal, Once, On Tue04/03/24 at 1800, For 1 dose, Scheduling/ADT, Refer to: [facility] ([facility]) order for therapy details 2054 (Given - Provider: Oracio Navarro.S.N., R.N.) sennosides-docusate sodium 8.6-50 mg per tablet 1 tablet (Senokot-S) 1 tablet, oral, 2 times daily, First dose on Tue04/04/24 at 0900, Initiate ONLY when taking oral food and fluids. Do not give if patient has diarrhea or ostomy. 0652 ([facility] Hold - Provider: Transfer Provider, Automatic - Reason: Patient not available)0900 (Not Given - Provider: Kaylyn Fermin RFeiN. - Reason: Patient/family refused)1034 ([facility] - Provider: Transfer Provider, Automatic) PRN Medication Order 04/02/2024 04/03/2024 04/04/2024 bisacodyL suppository 10 mg (Dulcolax) 10 mg, rectal, Daily PRN, constipation, Starting on Tue04/03/24 at 1843, Ordered sequence of administration: polyethylene glycol, then bisacodyl until BM achieved. 0652 ([facility] Hold - Provider: Transfer Provider, Automatic - Reason: Patient not available)1034 ([facility] - Provider: Transfer Provider, Automatic) dexAMETHasone injection 4 mg (Decadron) 4 mg, intravenous, Once as needed, nausea, vomiting, Starting on Tue04/03/24 at 1843, For 1 dose, Give only if NOT given during the pre or intraoperative period. If ondansetron ordered, give dexamethasone with first dose of ondansetron. 0652 ([facility] Hold - Provider: Transfer Provider, Automatic - Reason: Patient not available)1034 ([facility] Unhold - Provider: Transfer Provider, Automatic) fentaNYL injection 25 mcg (Sublimaze) 25 mcg, intravenous, Every 1 hour PRN, moderate pain or score 4-6 of 10, severe pain or score 7-10 of 10, if patient is unable to take oral analgesics, Starting on Tue04/03/24 at 1843, For 2 doses 0652 ([facility] Hold - Provider: Transfer Provider, Automatic - Reason: Patient not available)1034 ([facility] Unhold - Provider: Transfer Provider, Automatic) haloperidol lactate injection 1 mg (HaldoL) 1 mg, intravenous, Every 6 hours PRN, nausea, vomiting, Starting on Tue04/03/24 at 1843, For 48 hours, Total of 3 doses in 24 hour period. RASS must be -2 or higher to administer. Reassess for nausea or vomiting after at least 10 minutes. If nausea or vomiting persists administer next ordered antiemetic medications (order for antiemetic medication administration ondansetron then haloperidol then prochlorperazine) 0652 ([facility] Hold - Provider: Transfer Provider, Automatic - Reason: Patient not available)1034 ([facility] Unhold - Provider: Transfer Provider, Automatic) heparin 10 Units/mL in NaCl 0.9% 500 mL flush solution (COMPLETED) miscellaneous, Once in surgery, OR use only, Starting on Tue04/03/24 at 1044, For 1 dose, Intra-Op, *Flush/Irrigation use only* 1700 (New Bag - Provider: Theodore Crocker M.D.) heparin 10 Units/mL in NaCl 0.9% 500 mL flush solution (COMPLETED) miscellaneous, Once in surgery, OR use only, Starting on Tue04/04/24 at 0713, For 1 dose, Intra-Op, *Flush/Irrigation use only* 0902 (New Bag - Provider: Suzie ReneeB.B.S.) HYDROmorphone (PF) injection 0.4 mg (Dilaudid) 0.4 mg, intravenous, Every 1 hour PRN, moderate pain or score 4-6 of 10, severe pain or score 7-10 of 10, if patient is unable to take oral analgesics, Starting on Tue04/03/24 at 1843, For 1 dose, If pain score remains 4 or greater 1 hour after the second fentaNYL dose then administer HYDROmorphone. If pain remains 4 or greater after HYDROmorphone administration, call provider. 0652 ([facility] Hold - Provider: Transfer Provider, Automatic - Reason: Patient not available)1034 ([facility] Un[facility] - Provider: Transfer Provider, Automatic) iodixanoL (Visipaque) 106.7 mg/mL in NaCl 0.9% injection (COMPLETED) 300 mL, intravenous, Once in surgery, OR use only, Starting on Tue04/03/24 at 1044, For 1 dose, Intra-Op 1701 (Given - Provider: Theodore Crocker M.D.) iodixanoL (Visipaque) 106.7 mg/mL in NaCl 0.9% injection (COMPLETED) 300 mL, intravenous, Once in surgery, OR use only, Starting on Tue04/04/24 at 0713, For 1 dose, Intra-Op 0902 (Given - Provid er: Suzie ReneeB.B.S.) labetaloL injection 10 mg (COMPLETED) 10 mg, intravenous, Once as needed, high blood pressure, per Provider instructions, Starting on Tue04/03/24 at 1744, For 1 dose, PACU (only), Follow institution's IV administration guidelines 1804 (Given - Provider: Ginette Bruce R.N.) lidocaine-BUPivacaine 1%-0.25% infiltration injection 30 mL (COMPLETED) 30 mL, infiltration, Once in surgery, OR use only, Starting on Tue04/03/24 at 1044, For 1 dose, Intra-Op, Not for IV use 1414 (Given - Provider: Theodore Crocker M.D.) lidocaine-BUPivacaine 1%-0.25% infiltration injection 30 mL (COMPLETED) 30 mL, infiltration, Once in surgery, OR use only, Starting on Tue04/04/24 at 0713, For 1 dose, Intra-Op, Not for IV use 0903 (Given - Provid er: Amy Renee - Comment: Left groin) metoprolol tablet 12.5 mg (Lopressor) (COMPLETED) 12.5 mg, oral, Once as needed, if patient did not take their last scheduled dose of beta terrell prior to arrival, Starting on Tue04/04/24 at 0712, For 1 dose, Pre-Op, Do not give if patient does not take scheduled beta blockers, if patient is receiving intravenous vasopressors or inotropes, if heart rate is less than 50 beats per minute, if systolic blood pressure is less than 90 mmHg or if diastolic blood pressure is less than 40 mmHg, or if patient has an allergy to metoprolol. 07 (Given - Provid er: Frida Kaur R.N.) naloxone injection 0.2 mg (Narcan) 0.2 mg, intravenous, As needed, respiratory depression, Starting on Tue04/03/24 at 1843, For RASS Score -4 or less, respiratory rate of less than 8 breaths/min. Notify provider/service and rapid response team (if available at institution). 0652 ([facility] Hold - Provider: Transfer Provider, Automatic - Reason: Patient not available)1034 ([facility] Un[facility] - Provider: Transfer Provider, Automatic) ondansetron (PF) injection 4 mg (Zofran) 4 mg, intravenous, Every 6 hours PRN, nausea, vomiting, Starting on Tue04/03/24 at 1843, For 48 hours, Reassess for nausea or vomiting after at least 10 minutes. If nausea or vomiting persists administer next ordered antiemetic medications (order for antiemetic medication administration ondansetron then haloperidol then prochlorperazine). 0652 ([facility] Hold - Provider: Transfer Provider, Automatic - Reason: Patient not available)1034 ([facility] Unhold - Provider: Transfer Provider, Automatic) oxyCODONE IR tablet 10 mg (Roxicodone)(Linked Group 1) 10 mg, oral, Every 4 hours PRN, severe pain or score 7-10 of 10, Starting on Tue04/03/24 at 1843, Administer if pain is unrelieved by acetaminophen. Do not give more than 10 mg of oxycodone in 4 hours. Begin oral narcotics ONLY when tolerating oral diet. 2005 (Given - Provider: Norman Hawkins R.N.) 0652 ([facility] Hold - Provider: Transfer Provider, Automatic - Reason: Patient not available)1034 ([facility] Unhold - Provider: Transfer Provider, Automatic)1244 (See Alternative - Provider: Kaylyn Fermin R.N.)1635 (Given - Provider: Natalie Estevez R.N., [facility]) oxyCODONE IR tablet 5 mg (Roxicodone)(Linked Group 1) 5 mg, oral, Every 4 hours PRN, moderate pain or score 4-6 of 10, Starting on Tue04/03/24 at 1843, Administer if pain is unrelieved by acetaminophen. May repeat dose once after 1 hour for persistent pain not to exceed 10 mg in 4 hours. Begin oral narcotics ONLY when tolerating oral diet. 2005 (See Alternative - Provider: Norman Hawkins R.N.) 0652 ([facility] Hold - Provider: Transfer Provider, Automatic - Reason: Patient not available)1034 ([facility] Unhold - Provider: Transfer Provider, Automatic)1244 (Given - Provider: Kaylyn Fermin R.N.)1635 (See Alternative - Provider: Natalie Estevez R.N., [facility]) polyethylene glycol powder packet 1 packet (Miralax) 1 packet, oral, Daily PRN, constipation, Starting on Tue04/03/24 at 1843, Ordered sequence of administration: polyethylene glycol, then bisacodyl until BM achieved. Avoid mixing with starch-based thickened liquids. 0652 ([facility] Hold - Provider: Transfer Provider, Automatic - Reason: Patient not available)1034 ([facility] Unhold - Provider: Transfer Provider, Automatic) prochlorperazine injection 5 mg (Compazine) 5 mg, intravenous, Every 6 hours PRN, nausea, vomiting, Starting on Tue04/03/24 at 1843, For 48 hours, RASS must be -2 or higher to administer. Reassess for nausea/vomiting after at least 10 minutes. If nausea or vomiting persists administer next ordered antiemetic medications (order for antiemetic medication administration ondansetron then haloperidol then prochlorperazine) 0652 ([facility] Hold - Provider: Transfer Provider, Automatic - Reason: Patient not available)1034 ([facility] Unhold - Provider: Transfer Provider, Automatic) Linked Groups Order Group 1: oxyCODONE IR tablet 5 mg (Roxicodone)Jump to med 5 mg, oral, Every 4 hours PRN, moderate pain or score 4-6 of 10, Starting on Tue04/03/24 at 1843, Administer if pain is unrelieved by acetaminophen. May repeat dose once after 1 hour for persistent pain not to exceed 10 mg in 4 hours. Begin oral narcotics ONLY when tolerating oral diet. Or oxyCODONE IR tablet 10 mg (Roxicodone)Jump to med 10 mg, oral, Every 4 hours PRN, severe pain or score 7-10 of 10, Starting on Tue04/03/24 at 1843, Administer if pain is unrelieved by acetaminophen. Do not give more than 10 mg of oxycodone in 4 hours. Begin oral narcotics ONLY when tolerating oral diet. documented in this encounter Additional Health Concerns Assessment Noted Time PHQ-9 Depression Total Score: 3 01/04/20 18 10:38 AM CDT documented as of this encounter Care Teams [employer] Relationship Specialty Start Date End Date Elsewhere, Pcp PCP - General Family Medicine 01/29/20 documented as of this encounter
--- OUTSIDE RECORDS SUMMARY | 2024-04-24 10:02 | XMS_ITS | Encounter Summary ---
Author Organization [facility] Address [address] [place] [id number] Care Team Providers Care Coagulation Operator Name Role Phone Elsewhere, Pcp Primary [...] Expiration Date Visits Re quested Visits Authorized [id number] 1 1 Encounter Details Date Type Department Care Team ([facility] st Contact Info) Description 04/03/2024 1:44 PM REGISTRATION COORDINATOR Anesthesia Event [facility] MAIN OR [address] [place] [phone] Vida Rodriguez M.D., Ph.D. [address] [place] [phone] Anesthesia Record Procedure Summary Procedure Name Responsible Anesthesiologist Anesthesia Start Time Anesthesia Stop Time IR ENDOVASCULAR ANGIOPLASTY STENT LOWER EXTREMITY, right femoral access. (Left) Vida Rodriguez M.D., Ph.D. 04/03/24 1344 04/03/24 1738 Events Date Time Event Comment 04/03/2024 1344 An Start Machine/Equipme nt Checked Infection Precautions Followed Procedure/Site Verified NPO Status Verified Supine Standard ASA Monitors Applied 1346 Turnover to Proceduralist 1349 Quick Note Per conversatio n with surgical fellow preference, plan to proceed with infiltration of surgical site but no sedation due to patient's severe restless legs. Conversation had with patient and family, who verbalized understanding of and comfort with plan. 1410 Quick Note Goal SBP 190. 1414 Proc Start 1414 Quick Note Local infiltrat ion by surgical team. 1420 Anes CS Handoff I, Luaks OB gisselle, HOG BUYER, COLORING MACHINE OPERATOR, attest that I have reconciled the controlled substances and that I have reviewed all the significant information with the next anesthesia provider assuming care of this patient. 1440 Anes CS Handoff I, Lukas OB gisselle, HOG BUYER, COLORING MACHINE OPERATOR, attest that I have reconciled the controlled substances and that I have reviewed all the significant information with the next anesthesia provider assuming care of this patient. 1622 Quick Note Immediately aft er administration of 10 mg of Protamine patient reports feeling unwell, dizzy with chest pain and nausea. SBP 40 mmHg lower than previous reading. Surgical team notified, MDA notified. Blood pressure supported. 1631 Quick Note EKG and chest x ray ordered. ACT and hemocue checked. 1702 Quick Note Patient reports feeling better, chest pain subsiding, nausea gone. 1709 Proc Fin 1710 Turnover to ANE Staff 1715 an stop data 1738 An End I completed my handoff to [...] Total fentanyl injection 50 mcg/mL 50 mcg ondansetron PF 4 mg/2 mL injection 4 mg acetaminophen injection 1,000 mg/100 mL (RESTRICTED) 1,000 mg labetaloL injection 5 mg/mL 5 mg ceFAZolin injection 2,000 mg (Ancef) 2 g heparin injection 1,000 Units/mL 8,000 U nits protamine injection 10 mg/mL 15 mg ePHEDrine PF 5 mg/mL injection 5 mg phenylephrine (Kenny-Synephrine) bolus fro m bag 400 mcg * Agents No agents on file. * Blood No blood administrations on file. Lines, Drains, and Airways Type Details Placement Removal Peritoneal Dialysis Catheter 02/16/23; Dr. Celeste; Right lower abdomen 02/16/23 0000 by Yanely Martinez R.N. Wound 02/16/23; Incision; Abdomen; Right, Mid; Primapore 02/16/23 0000 by Yanely Martinez R.N. Wound 03/12/24; Toe Great; Left 0000 by Sejal Ann R.N. Wound 03/12/24; Right, Oksana ntar; 1st met head 03/12/24 0000 by Sejal Ann R.NFei Wound 03/12/24; Leg; Left, Anterior 03/12/24 0000 by Sejal Ann R.N. Wound 04/03/24; 1416; N; Puncture; Groin; Right 04/03/24 1416 by Emi Martinez RJerad Peripheral IV Placement Date: 03/16 02/06; Placement Time: 1316; Catheter Size: 20 G; Orientation: Left, Posterior; Location: Hand; Site Prep: Chlorhexidine (Preferred); Technique: Anatomical landmarks; Inserted by: LEE; Insertion Attempts: 1; Removal Date: 04/04/24; Removal Time: 1630 04/03/24 1316 by Alexandr Whitman 04/04/24 1630 by Natalie Estevez RJerad, [facility] documented in this encounter Social History Tobacco Use Types Packs/Day Years Used Date Smoking Tobacco: Former Cigarettes 1 38.9 0 05/16/1983 - 04/2022 Smokeless Tobacco: Never Alcohol Use Standard Drinks/Week Comments Not Currently 0 (1 standard drink = 0.6 oz pur e alcohol) [facility] Utilities Answer Date Recorded In the past 12 months has [employer], gas, oil, or water [employer] threatened to shut off services in your [...] Answer Date Recorded PHQ-2 Score 0 10/20/2018 [facility] of Occupat ional Health - Occupational Stress [...] [facility] place to live 04/04/2024 Education Answer Date Recorded What is the highest level of school you have completed or the highest degree you have received? Some college, no degree 03/24/2021 Sex and Gender Information Value Date Recorded Sex Assigned at Male 03/24/2021 8:13 PM REGISTRATION COORDINATOR Legal Sex Male 12:04 AM REGISTRATION COORDINATOR Gender Identity Male 08/31/2019 2:40 PM CDT Sexual Orientation Straight 08/31/2019 2: 40 PM CDT documented as of this encounter OR Notes * Anesthesia Preprocedure Evaluation - Vida Rodriguez M.D., Ph.D. - 04/03/2024 1:24 PM CST Preprocedure Anesthesia & H&P Assessment Procedure Summary Date/Time: 04/03/24 1230 Procedures: IR ENDOVASCULAR ANGIOPLASTY STENT LOWER EXTREMITY, right femoral access. (Left) IR IMAGING. 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 Location: [place] [address] / [facility] in [place], [place] Providers: Kemar Velásquez M.B.B.S. Pertinent components of the patient's history including current problem list, medical history, surgical history, family history, social history, medications and allergies were reviewed. Present illness and pre-op diagnosis were confirmed. The planned surgery / procedure was verified with the patient / legal guardian. 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) (+) Diabetes Mellitus Type 2 With Other Circulatory Complication (HCC) PSYCH (+) Depression Major Recurrent Moderate (HCC) Nervous (+) Neuropathy Peripheral Circulatory (+) 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) (+) Atherosclerosis Of [place] Arteries Of Extremities With Intermittent Claudication Right Leg (HCC) Endocrine/Metabolic (+) Gout Sleep (+) Restless Leg Syndrome 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 Risks/Benefits/Alternatives of Blood transfusion discussed with patient / legal guardian, includingan opportunity to ask questions and/or decline some or all transfusion therapies. The patient / legal guardian consented to the use of all blood products, as deemed medically necessary Approval to Proceed: approved for anesthesia STRATION COORDINATOR documented in this encounter Plan of Treatment Upcoming Encounters Date Type Department Care Team (Late st Contact Info) Description 05/10/2024 8:30 AM REGISTRATION COORDINATOR Appointment Department of Radiology, [facility], in [place], [place] [address] [place] [phone] Kemar Velásquez M.B.B.S. [address] [place] [phone] Discharge Disposition: Home or Self Care 05/10/2024 9:30 AM REGISTRATION COORDINATOR Appointment Department of Vascular Medicine in [place], [place] [address] [place] [phone] Kemar Velásquez M.B.B.S. [address] [place] [phone] documented as of this encounter Visit Diagnoses Not on filedocumented in this encounter Administered Medications Inactive Administered Medications - up to 3 most recent administrations Medication Order MAR Action Action Date Dose Rate Site acetaminophen injection intravenous, Administer over 15 Minutes, As needed, Starting on Tue04/03/24 at 1409, Anesthesia Intra-op Given 04/03/2024 2:09 PM REGISTRATION COORDINATOR 1,000 mg ceFAZolin injection 2,000 mg (Ancef) 2,000 mg (rounded from 2,232.5 mg = [...] indication and drug clearance factors., Indications: Prophylaxis, surgicalIndications:Prophylaxis, surgical Given 04/03/2024 2:10 PM REGISTRATION COORDINATOR 2 g ePHEDrine (PF) injection intravenous, As needed, Starting on Tue04/03/24 at 1632, Anesthesia Intra-op Given 04/03/2024 4:32 PM REGISTRATION COORDINATOR 5 mg fentaNYL injection (Sublimaze) intravenous, As needed, Starting on Tue04/03/24 at 1540, Anesthesia Intra-op Given 04/03/2024 3:53 PM REGISTRATION COORDINATOR 25 mcg Given 04/03/2024 3:40 PM REGISTRATION COORDINATOR 25 mcg heparin (porcine) 1,000 unit/mL injection intravenous, As needed, Starting on Tue04/03/24 at 1455, Anesthesia Intra-op Given 04/03/2024 2:55 PM REGISTRATION COORDINATOR 8,000 Units labetaloL injection intravenous, As needed, Starting on Tue04/03/24 at 1410, Anesthesia Intra-op Given 04/03/2024 2:10 PM REGISTRATION COORDINATOR 5 mg ondansetron (PF) injection (Zofran) intravenous, As needed, Starting on Tue04/03/24 at 1608, Anesthesia Intra-op Given 04/03/2024 4:08 PM REGISTRATION COORDINATOR 4 mg phenylephrine bolus from bag (Kenny-Synephrine) intravenous, As needed, Starting on Tue04/03/24 at 1637, Anesthesia Intra-op Given 04/03/2024 4:52 PM REGISTRATION COORDINATOR 100 mc g Given 04/03/2024 4:46 PM REGISTRATION COORDINATOR 100 mcg Given 04/03/2024 4:39 PM REGISTRATION COORDINATOR 100 mcg protamine injection intravenous, As needed, Starting on Tue04/03/24 at 1620, Anesthesia Intra-op Given 04/03/2024 4:21 PM REGISTRATION COORDINATOR 10 mg Given 04/03/2024 4:18 PM REGISTRATION COORDINATOR 5 mg documented in this encounter Additional Health Concerns Assessment Noted Time PHQ-9 Depression Total Score: 3 01/04/20 18 10:38 AM CDT documented as of this encounter Care Teams Coagulation Operator Relationship Specialty Start Date End Date Elsewhere, Pcp PCP - General Family Medicine 01/29/20 documented as of this encounter
--- OUTSIDE RECORDS SUMMARY | 2024-04-24 10:02 | XMS_ITS | Encounter Summary ---
Author Organization [facility] Address [address] [place] [address] Care Team Providers Care Water Meter Installer Name Role Phone Elsewhere, Pcp Primary [...] Expiration Date Visits Re quested Visits Authorized [id number] 1 1 Encounter Details Date Type Department Care Team (Late st Contact Info) Description 04/04/2024 7:15 AM GATE SHEAR OPERATOR - 04/04/2024 10:59 AM GATE SHEAR OPERATOR Surgery RST ROMB MAIN OR [address] [place] [phone] Kemar Velásquez M.B.B.S. [address] [place] [phone] IR ENDOVASCULAR ANGIOPLASTY, DCB LOWER EXTREMITY, left femoral access. Social History Tobacco Use Types Packs/Day Years Used Date Smoking Tobacco: Former Cigarettes 1 38.9 0 05/16/1983 - 04/2022 Smokeless Tobacco: Never Alcohol Use Standard Drinks/Week Comments Not Currently 0 (1 standard drink = 0.6 oz pur e alcohol) [facility] Utilities Answer Date Recorded In the past 12 months has th e [employer], gas, oil, or water [employer] threatened to shut off services in your [...] How often do you attend zoroastrian or pentecostalism serv ices? Never 03/24/2021 Do [...] Answer Date Recorded PHQ-2 Score 0 10/20/2018 [employer] [place] [facility] [employer] - Occupational Stress [...] your living situation today? I have a [facility] place to live 04/04/2024 Education Answer Date Recorded What is the highest level of school you have completed or the highest degree you have received? Some college, no degree 03/24/2021 Sex and Gender Information Value Date Recorded Sex Assigned at Male 03/24/2021 8:13 PM GATE SHEAR OPERATOR Legal Sex Male 12:04 AM GATE SHEAR OPERATOR Gender Identity Male 08/31/2019 2:40 PM CDT Sexual Orientation Straight 08/31/2019 2: 40 PM CDT documented as of this encounter Last Filed Vital Signs Vital Sign Reading Time Taken Comments Blood Pressure 160/55 04/04/2024 10:41 AM GATE SHEAR OPERATOR Pulse 87 04/04/2024 10:45 AM GATE SHEAR OPERATOR Temperature 36.7 C (98.1 F) 04/04/2024 10:41 AM GATE SHEAR OPERATOR Respiratory Rate 15 04/04/2024 10:45 AM GATE SHEAR OPERATOR Oxygen Saturation 93% 04/04/2024 10:45 AM GATE SHEAR OPERATOR Inhaled Oxygen Concentration - - Weight 87.1 kg (192 lb) 04/03/2024 11:11 AM GATE SHEAR OPERATOR Height 175.3 cm (5' 9) 04/03/2024 11:11 AM GATE SHEAR OPERATOR Body Mass Index 28.35 04/03/2024 11:11 AM GATE SHEAR OPERATOR documented in this encounter Discharge Summaries * Michelle Meier APRN, C.N.P., M.S.N. - 04/04/2024 11:14 AM CST DISCHARGE SUMMARY BRIEF OVERVIEW Hospital: [facility] Discharge Provider: Kemar Velásquez M.B.B.S. Primary Team: [facility] Vascular Surgery - [facility] Primary Care Provider: Dr. 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 Kemar Velásquez M.B.B.S.Anderson, Peter B, M.D. [facility] ROMB OR 04/04/2024 IR ENDOVASCULAR ANGIOPLASTY, DCB LOWER EXTREMITY, left femoral access., IR IMAGING. Shuja, Kemar, M.B.B.S.Cristal Pfeiffer D.O.Kaoukabani, Georges, M.D., M.S. RST [...] dismissal, pain medication (examples: oxycodone, Dilaudid, Tramadol, Webb, etc.)will be prescribed to you if needed. Duration will be determined on a [id number] basis and will not exceed 2 weeks. [...] contact the vascular scheduling office by calling [phone]. Should you need to contact Dr. Velásquez or his service (pager [phone]) in the interim, you may do sothrough his medical research scientist at during normal business hours of 8 to 5 Tuesday through Tuesday or, in an emergency situation, through the [facility] diesel pile hammer operator at . OUTPATIENT FOLLOW UP For appointment details refer to your Patient Appointment Guide. 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 [...] spent in discharge services today: >20 minutes. SHEAR OPERATOR SHEAR OPERATOR SHEAR OPERATOR documented in this encounter Discharge Instructions * Attachments The following attachments cannot be sent through Care Everywhere. * Clopidogrel (By mouth) (South African) * Pantoprazole (By mouth) (South African) documented in this encounter Medications at Time [...] while on Plavix (Clopidogrel) 90 tablet 04/04/2024 5 pramipexole (Mirapex) 1 mg tablet Take 1 [...] return to his usual CCPD home regimen SHEAR OPERATOR * Jessica Guzman APRN, C.N.P., M.S.N. - [...] chronic limb ischemia # Peripheral Arterial Disease (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 Outpatient PD is managed by [facility] -- Dialyvite, one tablet orally each evening [...] has been staffed with Dr. Duvall, Nephrology erp consultant. For questions or concerns, please contact Nephrology A THREAD PULLER/PA pager ([phone]). SHEAR OPERATOR * Ozzy Marcos M.D., M.S. - 04/04/2024 9:47 AM CST [facility] Service Progress Note SUBJECTIVE Onesimo Walton is [...] displayed. Drains: Output by Drain (mL) 04/02/24 0701 - 04/02/24 1900 04/02/24 190 - 04/03/24 0700 04/03/24 0701 - 04/03/24 1900 04/03/24 190 - 04/04/24 0700 04/04/24 0701 - 04/04/24 0947 Patient has no LDAs [...] Mellitus Type 2 With Other Circulatory Complication ([facility]) #2 Peripheral Arterial Disease (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) #6 Chronic Kidney Disease Stage 5 Glomerular Filtration Rate Less Than 15 (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) #9 Atherosclerosis Arteriosclerosis Obliterans Leg With Ulcer Forefoot Right ([facility]) 74M with a heavy vascular/medical history relevant [...] Patient is being cared for by the [facility] team. Please page [phone] ([facility]) with any questions. Plan and assessment were discussed with Dr. Velásquez, who was in agreement. Dick Marcos M.D., M.S. PGY1 - General Surgery [id number] SHEAR OPERATOR * Tammy Yancey Pharm.D., R.Ph., BCPS - 04/04/2024 8:09 AM CST Pharmacist Progress [...] TBD Jose Carlos Yancey Pharm.D., R.Ph., BCPS SHEAR OPERATOR * Clarice Olivo Pharm.D., R.Ph. - 04/03/2024 [...] under the skin continuously. Insulin aspart pump. SHEAR OPERATOR documented in this encounter Consult Notes * Regina Schmidt APRN C.N.P., M.S.N. - 04/03/2024 3:17 PM CSTAssociated [...] at home. His peritoneal dialysisis managed through [facility] dialysis unit under the direction of Dr. [...] Weight: 87.1 kg I/O 04/02 0000 04/02 2359 04/03 0000 04/03 2359 Intermittent Medications 100 Total Intake(mL/kg) 100 (1.1) [...] this in the hospital as it is [facility] non formulary. Nephrology will order and manage. [...] dismissal -- Outpatient PD is managed by [facility] Mr. Walton's case has been staffed with Dr. Duvall, Nephrology erp consultant. For questions or concerns, please contact Nephrology A THREAD PULLER/PA pager ([phone]). SHEAR OPERATOR documented in this encounter Nursing Notes * Norman Hawkins RRishabh. - 04/04/2024 6:33 AM CST Shift Goals: [...] free from fall/fall injury Outcome: Not Progressing SHEAR OPERATOR documented in this encounter OR Notes * Op Note - Kemar Velásquez M.B.BFeiS. 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 Completion angiogram showed excellent luminal gain, no dissection, no distal embolization and a 3 vessel run-off, mainly via peroneal and PT. Plantar arteries were also patent. The sheath was removed, protamine given slowly and pressure held for 30 minutes. Frankie ReneeB.S. SHEAR OPERATOR * Brief Op Note - Cristal Pfeiffer [...] post op Complications None Cristal Pfeiffer D.O. SHEAR OPERATOR * Op Note - Theodore Crockre M.D. - 04/03/2024 2:14 PM CST Pre-op [...] then inserted and exchanged to a 4 Guyanese sheath. An Omni Flush catheterwas then advanced [...] Kemar Velásquez M.B.B.S. at 04/03/2024 10:10 PM GATE SHEAR OPERATOR SHEAR OPERATOR SHEAR OPERATOR * Brief Op Note - Theodore Crocker [...] -Groin checks for hematoma/pseudoaneurysm -Admit to Dr. Didier garza, PCU status overnight -Plavix load later tonight [...] Popliteal aneurysm: no Additional Vessels Treated? No SHEAR OPERATOR SHEAR OPERATOR documented in this encounter Miscellaneous Notes * Hospital Course - Michelle Meier APRN, C.N.P., M.S.N. - 04/02/2024 9:42 AM CST # Peripheral Arterial Disease (HCC) # Atherosclerosis Of [place] Arteries Of Extremities With Intermittent Claudication [...] Type 2 With Other Circulatory Complication (HCC) # Chronic Kidney Disease Stage 5 Glomerular Filtration Rate Less Than 15 (HCC) Home medications were resumed as clinically indicated. Nephrology was consulted and peritoneal dialysis was continued. Ongoing management of chronic medical conditions per primary care provider. SHEAR OPERATOR SHEAR OPERATOR SHEAR OPERATOR SHEAR OPERATOR SHEAR OPERATOR SHEAR OPERATOR SHEAR OPERATOR SHEAR OPERATOR documented in this encounter Plan of Treatment Upcoming Encounters Date Type Department Care Team (Late st Contact Info) Description 05/10/2024 8:30 AM GATE SHEAR OPERATOR Appointment Department of Radiology, [facility], in [address] [phone] Kemar Velásquez M.B.B.S. [address] [place] [phone] Discharge Disposition: Home or Self Care 05/10/2024 9:30 AM GATE SHEAR OPERATOR Appointment Department of Vascular Medicine in [place], [place] [address] [place] [phone] Kemar Velásquez M.B.B.S. 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) ACT, POCT, B Routine 04/04/2024 8:47 AM GATE SHEAR OPERATOR ANGIOPLASTY/STENT ENDOVASCULAR FEMORAL AND/OR POPLITEAL AND/OR TIBIAL ARTERY 04/04/2024 7:16 AM GATE SHEAR OPERATOR Peripheral Arterial Disease (HCC) 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) CBC WITHOUT DIFFERENTIAL, B Timed 04/04/2024 4:22 AM GATE SHEAR OPERATOR TROPONIN T, 5TH GEN, P Timed 04/04/2024 4:22 AM GATE SHEAR OPERATOR BASIC METABOLIC PANEL, S/P Timed 04/04/2024 4:22 AM GATE SHEAR OPERATOR TROPONIN T, 6H, 5TH GEN, P Timed 04/04/2024 12:10 AM GATE SHEAR OPERATOR TROPONIN T, 2H/6H REFLEX, 5TH GEN, P Timed 04/03/2024 8:18 PM GATE SHEAR OPERATOR ADULT OXYGEN THERAPY Routine 04/03/2024 6:43 PM GATE SHEAR OPERATOR ADULT OXYGEN THERAPY Routine 04/03/2024 6:43 PM GATE SHEAR OPERATOR TROPONIN T, BASELINE, 5TH GEN, P STAT 04/03/2024 6:04 PM GATE SHEAR OPERATOR CBC WITH DIFFERENTIAL, B STAT 04/03/2024 6:04 PM GATE SHEAR OPERATOR PHOSPHORUS (INORGANIC), S STAT 04/03/2024 6:04 PM GATE SHEAR OPERATOR MAGNESIUM, S STAT 04/03/2024 6:04 PM GATE SHEAR OPERATOR BASIC METABOLIC PANEL, S/P STAT 04/03/2024 6:04 PM GATE SHEAR OPERATOR IR IMAGING RAD - Routine (most inpatients and all outpatients) 04/03/2024 5:17 PM GATE SHEAR OPERATOR Peripheral Arterial Disease (HCC) 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) DX CHEST PORTABLE 1 VIEW RAD - Emergent (Fastest; for the most critically ill patients) 04/03/2024 5:11 PM GATE SHEAR OPERATOR ECG STAT 04/03/2024 4:55 PM GATE SHEAR OPERATOR ACT, POCT, B Routine 04/03/2024 4:43 PM GATE SHEAR OPERATOR HEMOGLOBIN (HGB), POCT, B Routine 04/03/2024 4:40 PM GATE SHEAR OPERATOR CONTINUOUS CYCLING PERITONEAL DIALYSIS (CCPD) Routine 04/03/2024 4:26 PM GATE SHEAR OPERATOR ACT, POCT, B Routine 04/03/2024 3:20 PM GATE SHEAR OPERATOR HEMOGLOBIN A1C, B STAT 04/03/2024 1:1 9 PM GATE SHEAR OPERATOR BASIC METABOLIC PANEL, S/P STAT 04/03/2024 1:19 PM GATE SHEAR OPERATOR GLUCOSE, VENOUS, B STAT 04/03/2024 1: 18 PM GATE SHEAR OPERATOR POTASSIUM, VENOUS, B STAT 04/03/2024 1:18 PM GATE SHEAR OPERATOR CALCIUM, IONIZED, VENOUS, B STAT 04/03/2024 1:18 PM GATE SHEAR OPERATOR LACTATE, VENOUS, B STAT 04/03/2024 1: 18 PM GATE SHEAR OPERATOR SODIUM, VENOUS, B STAT 04/03/2024 1:1 8 PM GATE SHEAR OPERATOR PATIENT STATUS STAT 04/03/2024 1:18 PM GATE SHEAR OPERATOR VENOUS BLOOD GAS W/COOX, B STAT 04/03/2024 1:18 PM GATE SHEAR OPERATOR GLUCOSE POCT, B Routine 04/03/2024 1:13 PM GATE SHEAR OPERATOR MISC RESEARCH ORDER, B Routine 04/03/2024 11:20 AM GATE SHEAR OPERATOR documented in this encounter Results * IR IMAGING (04/04/2024 9:42 AM GATE SHEAR OPERATOR) Anatomical Region Laterality Modality N/A Other Narrative 04/05/2024 7:12 AM GATE SHEAR OPERATOR Performed by surgeon - see Op Note for result. us Kemar Shuja M.B.B.S. IMG IR PROCEDURES Final Res ult * (ABNORMAL) ACT (Activated Clotting Time), POCT (04/04/2024 8:47 AM GATE SHEAR OPERATOR) [facility] Activated Clotting Time 262(H) 82 - 152 sec 04/04/2024 8:48 AM GATE SHEAR OPERATOR PCLX 04/04/2024 8:47 AM GATE SHEAR OPERATOR 04/04/2024 8:49 AM GATE SHEAR OPERATOR Unknown Provider LAB POCT ORDERABLES - DEVICE Fi nal Result Performing Organization Address [facility] Co de Phone Number [facility] [address] [facility] 200 [place] [address] * (ABNORMAL) Troponin T, 5th Generation (04/04/2024 4:22 AM GATE SHEAR OPERATOR) [facility] Troponin T, 5th gen 155(H) <=15 ng/L 04/04/2024 4:56 AM GATE SHEAR OPERATOR [facility] Comment:Consider acute myoca rdial injury Blood (Blood, Venous) 04/04/2024 4:22 AM GATE SHEAR OPERATOR 04/04/2024 4:39 AM GATE SHEAR OPERATOR Bry Choudhury M.D. LAB BLOOD ADD-ON Final R esult Performing Organization Address City/[facility]/ZIP Co de Phone Number [facility] 200 [place] [address], [facility] STMA [facility] 200 [place] [address] * (ABNORMAL) Basic Metabolic Panel (04/04/2024 4:22 AM GATE SHEAR OPERATOR) [facility] Potassium, S 4.1 3.6 - 5.2 mmol/L 04/04/2024 5:47 AM GATE SHEAR OPERATOR DTL Sodium, S 136 135 - 145 mmol/L 04/04/2024 5:47 AM GATE SHEAR OPERATOR DTL Chloride, S 97(L) 98 - 107 mmol/L 04/04/2024 5:47 AM GATE SHEAR OPERATOR DTL Bicarbonate, S 20(L) 22 - 29 mmol/L 04/04/2024 5:47 AM GATE SHEAR OPERATOR DTL Anion Gap 19(H) 7 - 15 04/04/2024 5:47 AM GATE SHEAR OPERATOR DTL BUN (Blood Urea Nitrogen), S 67(H) 8 - 24 mg/dL 04/04/2024 5:47 AM GATE SHEAR OPERATOR DTL Creatinine 5.68(H) 0.74 - 1.35 mg/dL 04/04/2024 5:47 AM GATE SHEAR OPERATOR DTL Estimated GFR (eGFR) <15(L) >=60 mL/min/BSA 04/04/2024 5:47 AM GATE SHEAR OPERATOR DTL Comment: Estimated GFR calculated using the 2020 CKD_EPI creatinine equation. Calcium, Total, S 7.8(L) 8.8 - 10.2 mg/dL 04/04/2024 5:47 AM GATE SHEAR OPERATOR DTL Glucose, S 172(H) 70 - 140 mg/dL 04/04/2024 5:47 AM GATE SHEAR OPERATOR DTL Blood (Blood, Venous) 04/04/2024 4:22 AM GATE SHEAR OPERATOR 04/04/2024 5:10 AM GATE SHEAR OPERATOR us Theodore Crocker M.D. LAB BLOOD ADD-ON Final Res ult [address] [address], [facility] [place] [address] * (ABNORMAL) CBC without Differential (04/04/2024 4:22 AM GATE SHEAR OPERATOR) Hemoglobin 10.5(L) 13.2 - 16.6 g/dL 04/04/2024 5:33 AM GATE SHEAR OPERATOR DH[facility] Hematocrit 31.7(L) 38.3 - 48.6 % 04/04/2024 5:33 AM GATE SHEAR OPERATOR DHPM Erythrocytes 3.09(L) 4.35 - 5.65 x10(12)/L 04/04/2024 5:33 AM GATE SHEAR OPERATOR DH[facility] MCV 102.6(H) 78.2 - 97.9 fL 04/04/2024 5:33 AM GATE SHEAR OPERATOR DH[facility] RBC Distrib Width 14.6(H) 11.8 - 14.5 % 04/04/2024 5:33 AM GATE SHEAR OPERATOR [facility] Platelet Count 236 135 - 317 x10(9)/L 04/04/2024 5:33 AM GATE SHEAR OPERATOR [facility] Leukocytes 9.4 3.4 - 9.6 x10(9)/L 04/04/2024 5:33 AM GATE SHEAR OPERATOR [facility] Blood (Blood, Venous) 04/04/2024 4:22 AM GATE SHEAR OPERATOR 04/04/2024 4:58 AM GATE SHEAR OPERATOR Theodore Crocker M.D. LAB BLOOD ADD-ON Final Res ult [facility] [address] [place] [address], [facility] 200 [place] [address] * (ABNORMAL) Troponin T, 6h, 5th Gen (04/04/2024 12:10 AM GATE SHEAR OPERATOR) Troponin T, 6 hr, 5th gen 158(H) <=15 ng/L 04/04/2024 12:36 AM GATE SHEAR OPERATOR [facility] Comment:Consider acute myoca rdial injury 6H Delta % 10 % 04/04/2024 12:36 AM GATE SHEAR OPERATOR [facility] 6H Delta Interp Not Changing 04/04/2024 12:36 AM GATE SHEAR OPERATOR [facility] Blood 04/04/2024 12:1 0 AM GATE SHEAR OPERATOR 04/04/2024 12:17 AM GATE SHEAR OPERATOR Theodore Crocker M.D. LAB BLOOD TROPONIN Final R esult [facility] [address] [place] [address], [facility] STMA [facility] [address] [place] [address] * (ABNORMAL) Troponin T, 2 Hour with 6 Hour Reflex, 5th Gen (04/03/2024 8:18 PM GATE SHEAR OPERATOR) Troponin T, 2 hr, 5th gen 135(H) <=15 ng/L 04/03/2024 8:51 PM GATE SHEAR OPERATOR [facility] Comment:Consider acute myoca rdial injury 2H Delta % -6 % 04/03/2024 8:51 PM GATE SHEAR OPERATOR [facility] Comment:6 hour collection pe nding. 2H Delta Interp Not Changing 04/03/2024 8:51 PM GATE SHEAR OPERATOR [facility] Blood 04/03/2024 8:18 PM GATE SHEAR OPERATOR 04/03/2024 8:27 PM GATE SHEAR OPERATOR us Theodore Crocker M.D. LAB BLOOD TROPONIN Final R esult Performing Organization Address City/[facility] Co de Phone Number [facility] [address] [place] [address], [facility] 200 [place] [address] * (ABNORMAL) Troponin T, Baseline with 2 Hour/6 Hour Reflex Biomarker Panel (04/03/2024 6:04 PM GATE SHEAR OPERATOR) Troponin T, Baseline, 5th gen 143(H) <=15 ng/L 04/03/2024 6:42 PM GATE SHEAR OPERATOR [facility] Comment:Consider acute myoca rdial injury Blood (Blood, Venous) 04/03/2024 6:04 PM GATE SHEAR OPERATOR 04/03/2024 6:14 PM GATE SHEAR OPERATOR us Theodore Crocker M.D. LAB BLOOD TROPONIN Final R esult Performing Organization Address [facility] Co de Phone Number [facility] [address] [place] [address], [facility] [address] [place] [address] * (ABNORMAL) Phosphorus Inorganic (04/03/2024 6:04 PM GATE SHEAR OPERATOR) Phosphorus (Inorganic), P 7.6(H) 2.5 - 4.5 mg/dL 04/03/2024 8:26 PM GATE SHEAR OPERATOR DTL Blood (Blood, Venous) 04/03/2024 6:04 PM GATE SHEAR OPERATOR 04/03/2024 6:14 PM GATE SHEAR OPERATOR us Theodore Crocker M.D. LAB BLOOD ADD-ON Final Res ult Performing Organization Address City/[facility] Co de Phone Number [facility] [address] [place] [address], [facility] DTL [facility] 200 [place] [address] * Magnesium (04/03/2024 6:04 PM GATE SHEAR OPERATOR) Pathologist [facility] Magnesium, P 1.9 1.7 - 2.3 mg/dL 04/03/2024 6:33 PM GATE SHEAR OPERATOR [facility] Blood (Blood, Venous) 04/03/2024 6:04 PM GATE SHEAR OPERATOR 04/03/2024 6:14 PM GATE SHEAR OPERATOR us Theodore Crocker M.D. LAB BLOOD ADD-ON Final Res ult Performing Organization Address [facility] Co de Phone Number [facility] [address] [place] [address], [facility] STMA [facility] [address] [place] [address] * (ABNORMAL) Basic Metabolic Panel (04/03/2024 6:04 PM GATE SHEAR OPERATOR) Pathologist [facility] Potassium, P 4.6 3.6 - 5.2 mmol/L 04/03/2024 6:33 PM GATE SHEAR OPERATOR [facility] Sodium, P 134(L) 135 - 145 mmol/L 04/03/2024 6:33 PM GATE SHEAR OPERATOR [facility] Chloride, P 95(L) 98 - 107 mmol/L 04/03/2024 6:33 PM GATE SHEAR OPERATOR [facility] Bicarbonate, P 21(L) 22 - 29 mmol/L 04/03/2024 6:33 PM GATE SHEAR OPERATOR [facility] Anion Gap, P 18(H) 7 - 15 04/03/2024 6:33 PM GATE SHEAR OPERATOR [facility] BUN (Blood Urea Nitrogen), P 75(H) 8 - 24 mg/dL 04/03/2024 6:33 PM GATE SHEAR OPERATOR [facility] Creatinine 5.53(H) 0.74 - 1.35 mg/dL 04/03/2024 6:33 PM GATE SHEAR OPERATOR [facility] Estimated GFR (eGFR) <15(L) >=60 mL/min/BSA 04/03/2024 6:33 PM GATE SHEAR OPERATOR [facility] Comment: Estimated GFR calculated using the 2020 CKD_EPI creatinine equation. Calcium, Total, P 8.3(L) 8.8 - 10.2 mg/dL 04/03/2024 6:33 PM GATE SHEAR OPERATOR [facility] Glucose, P 135 70 - 140 mg/dL 04/03/2024 6:33 PM GATE SHEAR OPERATOR [facility] Blood (Blood, Venous) 04/03/2024 6:04 PM GATE SHEAR OPERATOR 04/03/2024 6:14 PM GATE SHEAR OPERATOR us Theodore Crocker M.D. LAB BLOOD ADD-ON Final Res ult [facility] [address] [place] [address], [facility] [address] [place] [address] * (ABNORMAL) CBC with Differential, Blood (04/03/2024 6:04 PM GATE SHEAR OPERATOR) Hemoglobin 10.7(L) 13.2 - 16.6 g/dL 04/03/2024 6:18 PM GATE SHEAR OPERATOR [facility] Hematocrit 32.9(L) 38.3 - 48.6 % 04/03/2024 6:18 PM GATE SHEAR OPERATOR [facility] Erythrocytes 3.19(L) 4.35 - 5.65 x10(12)/L 04/03/2024 6:18 PM GATE SHEAR OPERATOR [facility] MCV 103.1(H) 78.2 - 97.9 fL 04/03/2024 6:18 PM GATE SHEAR OPERATOR [facility] RBC Distrib Width 14.6(H) 11.8 - 14.5 % 04/03/2024 6:18 PM GATE SHEAR OPERATOR [facility] Platelet Count 249 135 - 317 x10(9)/L 04/03/2024 6:18 PM GATE SHEAR OPERATOR [facility] Leukocytes 12.0(H) 3.4 - 9.6 x10(9)/L 04/03/2024 6:18 PM GATE SHEAR OPERATOR [facility] Neutrophils 10.34(H) 1.56 - 6.45 x10(9)/L 04/03/2024 6:18 PM GATE SHEAR OPERATOR [facility] Lymphocytes 0.75(L) 0.95 - 3.07 x10(9)/L 04/03/2024 6:18 PM GATE SHEAR OPERATOR [facility] Monocytes 0.49 0.26 - 0.81 x10(9)/L 04/03/2024 6:18 PM GATE SHEAR OPERATOR [facility] Eosinophils 0.35 0.03 - 0.48 x10(9)/L 04/03/2024 6:18 PM GATE SHEAR OPERATOR [facility] Basophils 0.04 0.01 - 0.08 x10(9)/L 04/03/2024 6:18 PM GATE SHEAR OPERATOR [facility] Blood (Blood, Venous) 04/03/2024 6:04 PM GATE SHEAR OPERATOR 04/03/2024 6:14 PM GATE SHEAR OPERATOR Theodore Crocker M.D. LAB BLOOD ADD-ON Final Res ult [facility] [address] [place] [address], [facility] STMA [facility] [address] [place] [address] DHPM [facility] [address] [place] [address] * IR IMAGING (04/03/2024 5:17 PM GATE SHEAR OPERATOR) Anatomical Region Laterality Modality N/A Other Narrative 04/04/2024 1:17 PM GATE SHEAR OPERATOR Performed by surgeon - see Op Note for result. Kemar Reyes IMG IR PROCEDURES Final Res ult * DX Chest Portable 1 View (04/03/2024 5:11 PM GATE SHEAR OPERATOR) Anatomical Region Laterality Modality Chest, Thoracic RST LOS, Tho racic ARZ LOS, Thoracic FLA LOS N/A Digital Radiography Impressions 04/03/2024 5:25 PM GATE SHEAR OPERATOR Since 11/17/2022, new suspected diffuse interstitial pulmonary edema throughout both lungs. Probable trace right pleural effusion. Low lung volumes and lordotic positioning accentuate the cardiac silhouette and pulmonary vascularity. Otherwise no change. Aortic calcification. Degenerative changes of the spine. Narrative 04/03/2024 5:25 PM GATE SHEAR OPERATOR EXAM: DX CHEST PORTABLE 1 VIEW Procedure [...] * ECG 12 Lead (04/03/2024 4:55 PM GATE SHEAR OPERATOR) Ventricular Rate ECG/Min 95 BPM MUSE CO Interval 134 ms MUSE QRSD Interval 134 ms MUSE QT Interval 396 ms MUSE QTC Interval 497 ms MUSE P [place] 69 degrees MUSE R [place] -25 degrees MUSE T Wave [place] 75 degrees MUSE 04/03/2024 4:55 PM GATE SHEAR OPERATOR 04/03/2024 5:18 PM GATE SHEAR OPERATOR Impressions MUSE - 04/03/2024 5:18 PM GATE SHEAR OPERATOR Normal sinus rhythm Right bundle branch block [...] (Activated Clotting Time), POCT (04/03/2024 4:43 PM GATE SHEAR OPERATOR) Activated Clotting Time, POCT 166(H) 84 - 139 sec 04/03/2024 4:44 PM GATE SHEAR OPERATOR PCSM Blood 04/03/2024 4:43 PM GATE SHEAR OPERATOR 04/03/2024 4:45 PM GATE SHEAR OPERATOR us Unknown Provider LAB POCT ORDERABLES - DEVICE Fi nal Result Performing Organization Address [facility] de Phone Number POC [facility] [address] [place], [place] [address] [address] [place] [address] * (ABNORMAL) Hemoglobin (HGB), POCT (04/03/2024 4:40 PM GATE SHEAR OPERATOR) [facility] Hemoglobin, POCT, B 10.1(L) 13.2 - 16.6 g/dL 04/03/2024 4:45 PM GATE SHEAR OPERATOR PCSM Blood 04/03/2024 4:40 PM GATE SHEAR OPERATOR 04/03/2024 4:45 PM GATE SHEAR OPERATOR us Unknown Provider LAB POCT ORDERABLES - DEVICE Fi nal Result Performing Organization Address [facility] de Phone Number POC [facility] [address] [place], [place] [address] POC [address] [place] [address] * (ABNORMAL) ACT (Activated Clotting Time), POCT (04/03/2024 3:20 PM GATE SHEAR OPERATOR) [facility] Activated Clotting Time, POCT 319(H) 84 - 139 sec 04/03/2024 3:21 PM GATE SHEAR OPERATOR PCSM Blood 04/03/2024 3:20 PM GATE SHEAR OPERATOR 04/03/2024 3:21 PM GATE SHEAR OPERATOR us Unknown Provider LAB POCT ORDERABLES - DEVICE Fi nal Result Performing Organization Address [facility] de Phone Number POC [facility] [address] [place], [place] [address] POC [address] [place] [id number] * (ABNORMAL) Basic Metabolic Panel (04/03/2024 1:19 PM GATE SHEAR OPERATOR) [facility] Potassium, P 4.4 3.6 - 5.2 mmol/L 04/03/2024 1:41 PM GATE SHEAR OPERATOR STMA Sodium, P 133(L) 135 - 145 mmol/L 04/03/2024 1:41 PM GATE SHEAR OPERATOR STMA Chloride, P 93(L) 98 - 107 mmol/L 04/03/2024 1:41 PM GATE SHEAR OPERATOR STMA Bicarbonate, P 21(L) 22 - 29 mmol/L 04/03/2024 1:41 PM GATE SHEAR OPERATOR STMA Anion Gap, P 19(H) 7 - 15 04/03/2024 1:41 PM GATE SHEAR OPERATOR STMA BUN (Blood Urea Nitrogen), P 72(H) 8 - 24 mg/dL 04/03/2024 1:41 PM GATE SHEAR OPERATOR STMA Creatinine 5.53(H) 0.74 - 1.35 mg/dL 04/03/2024 1:41 PM GATE SHEAR OPERATOR STMA Estimated GFR (eGFR) <15(L) >=60 mL/min/BSA 04/03/2024 1:41 PM GATE SHEAR OPERATOR STMA Comment: Estimated GFR calculated using the 2020 CKD_EPI creatinine equation. Calcium, Total, P 8.5(L) 8.8 - 10.2 mg/dL 04/03/2024 1:41 PM GATE SHEAR OPERATOR STMA Glucose, P 136 70 - 140 mg/dL 04/03/2024 1:41 PM GATE SHEAR OPERATOR STMA Blood (Blood, Venous) 04/03/2024 1:19 PM GATE SHEAR OPERATOR 04/03/2024 1:24 PM GATE SHEAR OPERATOR Vida Rodriguez M.D., Ph.D. LAB BLOOD ADD-ON Final Result [facility] [address] [place], [place] [id number] [place] [address] [place] [address] * (ABNORMAL) Hemoglobin A1c (04/03/2024 1:19 PM GATE SHEAR OPERATOR) Hemoglobin A1c, B 7.0(H) 4.0 - 5.6 % 04/03/2024 2:34 PM GATE SHEAR OPERATOR DTL Comment: Hemoglobin A1c values greater than or equal to 6.5 percent are diagnostic for diabetes mellitus. Diagnosis should be confirmed by repeat testing. In diabetic patients, HbA1c goals should be discussed with healthcare provider. Blood (Blood, Venous) 04/03/2024 1:19 PM GATE SHEAR OPERATOR 04/03/2024 2:17 PM GATE SHEAR OPERATOR Cristal Pfeiffer D.O. LAB BLOOD ADD-ON Final Result Performing Organization Address City/[facility]/ZIP Co de Phone Number [facility] [address] DTL [facility] 200 [place] [address] * Patient Status (04/03/2024 1:18 PM GATE SHEAR OPERATOR) FIO2 0.21 0.21=AIR 04/03/2024 1:24 PM GATE SHEAR OPERATOR STMA Spont. breaths/min 20 04/03/2024 1:24 PM GATE SHEAR OPERATOR STMA Blood 04/03/2024 1:18 PM GATE SHEAR OPERATOR 04/03/2024 1:24 PM GATE SHEAR OPERATOR Stacy Guerrero APRN, CRNA, D.N.P. LAB BLO OD NON ADD-ON Final Result Performing Organization Address [facility]/ZIP Co de Phone Number [facility] [address] 200 [place] [address] * Lactate, Venous, Blood (04/03/2024 1:18 PM GATE SHEAR OPERATOR) Lactate, Venous, B 1.5 0.5 - 2.2 mmol/L 04/03/2024 1:50 PM GATE SHEAR OPERATOR STMA Blood (Blood, Venous) 04/03/2024 1:18 PM GATE SHEAR OPERATOR 04/03/2024 1:24 PM GATE SHEAR OPERATOR Stacy Guerrero APRN, CRNA, D.N.P. LAB BLO OD ADD-ON Final Result Performing Organization Address City/[facility]/ZIP Co de Phone Number [facility] [address] 200 [place] [address] * Glucose, Venous, Blood (04/03/2024 1:18 PM GATE SHEAR OPERATOR) Glucose, Venous, B 138 70 - 140 mg/dL 04/03/2024 1:50 PM GATE SHEAR OPERATOR STMA Blood (Blood, Venous) 04/03/2024 1:18 PM GATE SHEAR OPERATOR 04/03/2024 1:24 PM GATE SHEAR OPERATOR Stacy Guerrero APRN, CRNA, D.N.P. LAB BLO OD ADD-ON Final Result Performing Organization Address City/[facility]/ZIP Co de Phone Number [facility] [address] [place] [address], [facility] [address] [place] [address] * Potassium, Venous, Blood (04/03/2024 1:18 PM GATE SHEAR OPERATOR) Pathologist [facility] Potassium, Venous, B 4.3 3.6 - 5.2 mmol/L 04/03/2024 1:54 PM GATE SHEAR OPERATOR STMA Blood (Blood, Venous) 04/03/2024 1:18 PM GATE SHEAR OPERATOR 04/03/2024 1:24 PM GATE SHEAR OPERATOR Stacy Guerrero APRN, CRNA, D.N.P. LAB BLO OD NON ADD-ON Final Result [facility] [address] [place] [address], [facility] [address] [place] [address] * Sodium, Venous, Blood (04/03/2024 1:18 PM GATE SHEAR OPERATOR) Sodium, Venous, B 135 135 - 145 mmol/L 04/03/2024 1:50 PM GATE SHEAR OPERATOR STMA Blood (Blood, Venous) 04/03/2024 1:18 PM GATE SHEAR OPERATOR 04/03/2024 1:24 PM GATE SHEAR OPERATOR Stacy Guerrero APRN, CRNA, D.N.P. LAB BLO OD ADD-ON Final Result Performing Organization Address [facility] Co de Phone Number [facility] [address] [place] [address] * Calcium, Ionized, Venous, Blood (04/03/2024 1:18 PM GATE SHEAR OPERATOR) Calcium, Ionized, Venous, B 4.67 4.65 - 5.30 mg/dL 04/03/2024 1:54 PM GATE SHEAR OPERATOR STMA Blood (Blood, Venous) 04/03/2024 1:18 PM GATE SHEAR OPERATOR 04/03/2024 1:24 PM GATE SHEAR OPERATOR Stacy Guerrero APRN, CRNA, D.N.P. LAB BLO OD NON ADD-ON Final Result Performing Organization Address [facility] de Phone Number [facility] [address] [place], [place] [phone] [place] [address] 200 [place] [address] * (ABNORMAL) Blood Gas with Coox, Venous (04/03/2024 1:18 PM GATE SHEAR OPERATOR) pO2, Venous, B 50 Not applicable mm Hg 04/03/2024 1:26 PM GATE SHEAR OPERATOR STMA pCO2, Venous, B 44 41 - 51 mm Hg 04/03/2024 1:26 PM GATE SHEAR OPERATOR STMA pH, Venous, B 7.32 7.32 - 7.43 pH 024 1:26 PM GATE SHEAR OPERATOR ST[facility] Base Excess, Venous, B -4 Not applicable mmol/L 04/03/2024 1:26 PM GATE SHEAR OPERATOR ST[facility] HCO3, Venous, B 22 Not applicable mmol/L 04/03/2024 1:26 PM GATE SHEAR OPERATOR STMA Hemoglobin, Venous, B 11.4(L) 13.2 - 16.6 g/dL 04/03/2024 1:26 PM GATE SHEAR OPERATOR STMA O2Hb, Venous, B 75.2 Not applicable % 04/03/2024 1:26 PM GATE SHEAR OPERATOR STMA COHb, Venous, B <1.0 <3.0 % 04/03/2024 1:26 PM GATE SHEAR OPERATOR ST[facility] MetHb, Venous, B 2.4(H) <1.5 % 04/03/2024 1:26 PM GATE SHEAR OPERATOR [facility] CtO2, Venous, B 12.1 Not Applicable vol % 04/03/2024 1:26 PM GATE SHEAR OPERATOR STMA Sample Site, Venous, B Venipunct 04/03/2024 1:24 PM GATE SHEAR OPERATOR STMA Blood (Blood, Venous) 04/03/2024 1:18 PM GATE SHEAR OPERATOR 04/03/2024 1:24 PM GATE SHEAR OPERATOR Stacy Guerrero APRN, CRNA, D.N.P. LAB BLO OD NON ADD-ON Final Result Performing Organization Address [facility]/ZIP Co de Phone Number [facility] [address] [place] [address], [facility] STMA [facility] [address] [place] [address] * Glucose, POCT (04/03/2024 1:13 PM GATE SHEAR OPERATOR) Pathologist [facility] Glucose, POCT, B 133 70 - 140 mg/dL 04/03/2024 1:16 PM GATE SHEAR OPERATOR PCLX Comment: Glucose results collected from venous catheters may be falsely elevated. Site Venline 04/03/2024 1:16 PM GATE SHEAR OPERATOR PCLX Blood 04/03/2024 1:13 PM GATE SHEAR OPERATOR 04/03/2024 1:16 PM GATE SHEAR OPERATOR us Unknown Provider LAB POCT ORDERABLES-MANUAL Mary l Result Performing Organization Address City/[facility]/ZIP Co de Phone Number POC [facility] [address] [place] [address], [facility] PCLX [facility] POC [address] [place] [address] * Mis Research, Blood (04/03/2024 11:20 AM GATE SHEAR OPERATOR) Number of Specimens 5 04/03/2024 11:20 AM GATE SHEAR OPERATOR HSS Blood (Blood, Venous) 04/03/2024 11:20 AM GATE SHEAR OPERATOR 04/03/2024 11:20 AM GATE SHEAR OPERATOR Kemar Reyes LAB RESEARCH NO RESULT ROUT ING Final Result 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 clopidogreL tablet 300 mg (Plavix) 300 mg, oral, Once, On Tue04/03/24 at 2100, For 1 dose, Plavix load after groin check and assuming no hemodynamic issues Given 04/03/2024 8:06 PM GATE SHEAR OPERATOR 300 mg clopidogreL tablet 75 mg (Plavix) 75 mg, oral, Daily, First dose on Tue04/04/24 at 0900 Given 04/04/2024 11:01 AM GATE SHEAR OPERATOR 75 mg dexAMETHasone injection 4 mg (Decadron) [...] medication administration ondansetron then haloperidol then prochlorperazine) heparin 10 Units/mL in NaCl 0.9% 500 mL flush solution miscellaneous, Once in surgery, OR use only, Starting on Tue04/04/24 at 0713, For 1 dose, Intra-Op, *Flush/Irrigation use only* New Bag 04/04/2024 9:02 AM GATE SHEAR OPERATOR 100 mL HYDROmorphone (PF) injection 0.4 mg (Dilaudid) 0.4 [...] or greater after HYDROmorphone administration, call provider. iodixanoL (Visipaque) 106.7 mg/mL in NaCl 0.9% injection 300 mL, intravenous, Once in surgery, OR use only, Starting on Tue04/04/24 at 0713, For 1 dose, Intra-Op Given 04/04/2024 9:02 AM GATE SHEAR OPERATOR 76 mL labetaloL injection 10 mg 10 mg, intravenous, Once as needed, high blood pressure, per Provider instructions, Starting on Tue04/03/24 at 1744, For 1 dose, PACU (only), Follow institution's IV administration guidelines Given 04/03/2024 6:04 PM GATE SHEAR OPERATOR 10 mg lidocaine-BUPivacaine 1%-0.25% infiltration injection 30 mL 30 mL, infiltration, Once in surgery, OR use only, Starting on Tue04/04/24 at 0713, For 1 dose, Intra-Op, Not for IV use Given 04/04/2024 9:03 AM GATE SHEAR OPERATOR 20 mL metoprolol tablet 12.5 mg (Lopressor) 12.5 mg, [...] allergy to metoprolol. Given 04/04/2024 7:26 AM GATE SHEAR OPERATOR 12.5 mg naloxone injection 0.2 mg (Narcan) [...] tolerating oral diet. Given 04/04/2024 4:35 PM GATE SHEAR OPERATOR 10 mg Given 04/03/2024 8:06 PM GATE SHEAR OPERATOR 10 mg oxyCODONE IR tablet 5 mg [...] tolerating oral diet. Given 04/04/2024 12:44 PM GATE SHEAR OPERATOR 5 mg PD 1.5 % dextrose Low Ca 2.5 mEq/L- Mg 0.5 mEq/L 6,000 mL Dialysis solution intraperitoneal, Once, On Tue04/03/24 at 1800, For 1 dose, Scheduling/ADT, Refer to: Continuous [facility] Per[facility] Dialysis (CCPD) order for therapy details Given 04/03/2024 8:55 PM GATE SHEAR OPERATOR PD 1.5 % dextrose Low Ca 2.5 mEq/L- Mg 0.5 mEq/L 6,000 mL Dialysis solution intraperitoneal, Once, On Tue04/03/24 at 1800, For 1 dose, Scheduling/ADT, Refer to: Continuous [facility] Peritoneal Dialysis (CCPD) order for therapy details Given 04/03/2024 8:55 PM GATE SHEAR OPERATOR polyethylene glycol powder packet 1 packet (Miralax) [...] Recently Administered Medications Times are shown in GATE SHEAR OPERATOR. Scheduled Medication Order 04/02/2024 04/03/2024 04/04/2024 acetaminophen tablet 1,000 mg (TylenoL) 1,000 mg, oral, 4 times daily, First dose on Tue04/03/24 at 2100 2005 (Given - Provider: Norman Hawkins RJerad) 0652 (JUL Hold - Provider: Transfer Provider, Automatic - Reason: Patient not available)0800 (Not Given - Provider: Kaylyn Fermin R.N. - Reason: Patient not available)1034 (JUL Unhold - Provider: Transfer Provider, Automatic)1245 (Given - Provider: Kaylyn Fermin RFeiNFei)1635 (Given - Provider: Natalie Estevez R.N., JAMES [...] 1410 (Given - Provider: Stacy Guerrero APRN, SAW REPAIRER, D.N.P.) ceFAZolin injection 2,000 mg (Ancef) (COMPLETED) [...] 0801 (Given - Provid er: Hui Smith RFeiNFei) clopidogreL tablet 300 mg (Plavix) (COMPLETED) 300 mg, oral, Once, On Tue04/03/24 at 2100, For 1 dose, Plavix load after groin check and assuming no hemodynamic issues 2005 (Given - Provider: Vikram SolizNFei) clopidogreL tablet 75 mg (Plavix) 75 mg, oral, Daily, First dose on Tue04/04/24 at 0900 0652 (JUL Hold - Provider: Transfer Provider, Automatic - Reason: Patient not available)1034 (JUL Unhold - Provider: Transfer Provider, Automatic)110 (Given - Provider: Kaylyn Fermin R.N.) PD 1.5 % dextrose Low Ca 2.5 mEq/L- Mg 0.5 mEq/L 6,000 mL Dialysis solution (COMPLETED) intraperitoneal, Once, On Tue04/03/24 at 1800, For 1 dose, Scheduling/ADT, Refer to: Continuous [facility] Peritoneal Dialysis (CCPD) order for therapy details 2054 (Given - Provider: Suzie NavarroSFeiNFei, R.N.) PD 1.5 % dextrose Low Ca 2.5 mEq/L- Mg 0.5 mEq/L 6,000 mL Dialysis solution (COMPLETED) intraperitoneal, Once, On Tue04/03/24 at 1800, For 1 dose, Scheduling/ADT, Refer to: Continuous [facility]itoneal Dialysis (CCPD) order for therapy details 2054 (Given - Provider: Suzie NavarroS.NFei, R.N.) sennosides-docusate sodium 8.6-50 mg per tablet 1 tablet (Senokot-S) 1 tablet, oral, 2 times daily, First dose on Tue04/04/24 at 0900, Initiate ONLY when taking oral food and fluids. Do not give if patient has diarrhea or ostomy. 0652 (JUL Hold - Provider: Transfer Provider, Automatic - Reason: Patient not available)0900 (Not Given - Provider: Kaylyn Fermin R.N. - Reason: Patient/family refused)1034 (JUL Unhold - Provider: Transfer Provider, Automatic) PRN Medication Order 04/02/2024 04/03/2024 04/04/2024 bisacodyL suppository 10 mg (Dulcolax) 10 mg, rectal, Daily PRN, constipation, Starting on Tue04/03/24 at 1843, Ordered sequence of administration: polyethylene glycol, then bisacodyl until BM achieved. 0652 ([facility] Hold - Provider: Transfer Provider, Automatic - Reason: Patient not available)1034 ([facility] Unhold - Provider: Transfer Provider, Automatic) dexAMETHasone injection 4 mg (Decadron) 4 mg, intravenous, Once as needed, nausea, vomiting, Starting on Tue04/03/24 at 1843, For 1 dose, Give only if NOT given during the pre or intraoperative period. If ondansetron ordered, give dexamethasone with first dose of ondansetron. 0652 ([facility] Hold - Provider: Transfer Provider, Automatic - Reason: Patient not available)1034 ([facility] Unhold - Provider: Transfer Provider, Automatic) fentaNYL injection 25 mcg (Sublimaze) 25 mcg, intravenous, Every 1 hour PRN, moderate pain or score 4-6 of 10, severe pain or score 7-10 of 10, if patient is unable to take oral analgesics, Starting on Tue04/03/24 at 1843, For 2 doses 0652 ([facility] Hold - Provider: Transfer Provider, Automatic - Reason: Patient not available)1034 ([facility] Unhold - Provider: Transfer Provider, Automatic) haloperidol [...] administration ondansetron then haloperidol then prochlorperazine) 0652 ([facility] Hold - Provider: Transfer Provider, Automatic - Reason: Patient not available)1034 ([facility] Unhold - Provider: Transfer Provider, Automatic) heparin [...] use only* 0902 (New Bag - Provider: Elisha Renee.B.S.) HYDROmorphone (PF) injection 0.4 mg (Dilaudid) 0.4 [...] IV use 0903 (Given - Provid er: Frankie ReneeBFeiS. - Comment: Left groin) metoprolol tablet 12.5 [...] if patient has an allergy to metoprolol. 0726 (Given - Provid er: Frida Kaur R.N.) [...] 2005 (Given - Provider: Norman Hawkins R.N.) 06 ([facility] Hold - Provider: Transfer Provider, Automatic - Reason: Patient not available)1034 ([facility] Unhold - Provider: Transfer Provider, Automatic)1244 (See Alternative - Provider: Kaylyn Fermin R.N.)1635 (Given - [facility]: [facility]., [facility] oxyCODONE IR tablet 5 mg (Roxicodone)(Linked Group [...] (See Alternative - Provider: Norman Hawkins R.N.) 651 ([facility] Hold - Provider: Transfer Provider, Automatic - Reason: Patient not available)1034 ([facility] Unhold - Provider: Transfer Provider, Automatic)1244 (Given - Provider: Kaylyn Fermin R.N.)1635 (See Alternative - Provider: [facility]., [facility]) polyethylene glycol powder packet 1 packet (Miralax) 1 packet, oral, Daily PRN, constipation, Starting on Tue04/03/24 at 1843, Ordered sequence of administration: polyethylene glycol, then bisacodyl until BM achieved. Avoid mixing with starch-based thickened liquids. 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
--- OUTSIDE RECORDS SUMMARY | 2024-04-24 10:02 | XMS_ITS | Encounter Summary ---
Author Organization [facility] Address [address] [place] [address] Care Team Providers Care Medical Staff Services Manager Name Role Phone Elsewhere, Pcp [...] Expiration Date Visits Re quested Visits Authorized [id number] 1 1 Encounter Details Date Type Department Care Team (Late st Contact Info) Description 04/04/2024 7:46 AM GENERAL SURGERY PHYSICIAN ASSISTANT Anesthesia Event RST ROMB MAIN OR [address] [place] [phone] Yon Burnett M.D. [address] [place] [phone] Anesthesia Record Procedure Summary Procedure Name Responsible Anesthesiologist Anesthesia Start Time Anesthesia Stop Time IR ENDOVASCULAR ANGIOPLASTY, DCB LOWER EXTREMITY, left femoral access. (Right) Yon Burnett M.D. 04/04/24 0746 04/04/24 0943 Events Date Time Event Comment 04/04/2024 0746 An Start Machine/Equipme nt Checked Infection Precautions Followed Procedure/Site Verified NPO Status Verified Supine Standard ASA Monitors Applied 0750 Turnover to Proceduralist 0750 Quick Note Due to patient' s history of restless leg syndrome, surgeon prefers to proceed with local infiltration but no sedation. Patient aware and agreeable with the plan. 0806 Proc Start 0934 Turnover to ANE Staff 0936 an stop data 0938 Proc Fin 0943 An End I completed my handoff to [...] Meds Name Total fentanyl injection 50 mcg/mL 100 mcg acetaminophen injection 1,000 mg/100 mL (RESTRICTED) 1,000 mg ceFAZolin injection 2,000 mg (Ancef) 2 g heparin injection 1,000 Units/mL 7,000 U nits protamine injection 10 mg/mL 20 mg phenylephrine (Kenny-Synephrine) injection 1 mg/10 mL syringe 200 mcg * Agents No agents on file. [...] met head 03/12/24 0000 by Sejal Ann R.N. Wound 03/12/24; Leg; Left, Anterior 03/12/24 0000 by Sejal Ann R.N. Wound 04/03/24; 1416; N; Puncture; Groin; Right 04/03/24 1416 by Emi Martinez R.N. Wound 04/04/24; 0807; N; Puncture; Groin; Left 04/04/24 0807 by Emi Martinez RFeiNFei Peripheral IV Placement Date: 03/16 02/06; Placement Time: 1316; Catheter Size: 20 G; Orientation: Left, Posterior; Location: Hand; Site Prep: Chlorhexidine (Preferred); Technique: Anatomical landmarks; Inserted by: LEE; Insertion Attempts: 1; Removal Date: 04/04/24; Removal Time: 162904/03/24 1316 by Alexandr Whitman 04/04/24 1630 by [facility]stevez [facility]., [facility] documented in this encounter Social History Tobacco Use Types Packs/Day Years Used Date Smoking Tobacco: Former Cigarettes 1 38.9 0 05/16/1983 - 04/2022 Smokeless Tobacco: Never Alcohol Use Standard Drinks/Week Comments Not Currently 0 (1 standard drink = 0.6 oz pur e alcohol) [facility] Utilities Answer Date Recorded In the past 12 months has e [employer], gas, oil, or water [employer] threatened to shut off services in your [...] How often do you attend restoration or jew serv ices? Never 03/24/2021 Do [...] 0 10/20/2018 [facility] [employer] [facility] [employer] - Occupational Stress [...] Assigned at Male 03/24/2021 8:13 PM GENERAL SURGERY PHYSICIAN ASSISTANT Legal Sex Male 12:04 AM GENERAL SURGERY PHYSICIAN ASSISTANT Gender Identity Male 08/31/2019 2:40 PM CDT Sexual Orientation Straight 08/31/2019 2: 40 PM CDT documented as of this encounter OR Notes * Anesthesia Postprocedure Evaluation - Yon Burnett M.D. - 04/04/2024 10:46 AM CST Patient: Onesimo Walton Procedure Summary Date: 04/04/24 Room / Location: [place] [address] / [facility] in [place], [place] Anesthesia Start: 745 Anesthesia Stop: 942 Procedures: IR ENDOVASCULAR ANGIOPLASTY, DCB LOWER EXTREMITY, left femoral access. (Right) IR IMAGING. 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 Responsible Provider: Yon Burnett M.D. Anesthesia Type: MAC ASA Status: 4 Anesthesia Type: MAC Last vitals Vitals Value Taken Time BP 171/60 04/04/24 1015 Temp 36.5 ??C 04/04/24 1015 Pulse 86 04/04/24 1016 Resp 15 04/04/24 1015 SpO2 92 % 04/04/24 1016 Vitals shown include unfiled device data. Please reference Vitals flowsheet for most recent vital signs. Anesthesia Post Evaluation Patient Disposition: monitored unit, expectation for recovery time deferred to receiving unit Cardiovascular status: hemodynamics (HR & BP) acceptable Respiratory status: patent airway with spontaneous effort Temperature: normothermic Oxygen requirements: room air Level of consciousness: awake Pain score: pain adequately controlled and/or at baseline Post Op nausea/vomiting: none Hydration status: euvolemic Notable Events No notable events documented. RAL SURGERY PHYSICIAN ASSISTANT * Anesthesia Preprocedure Evaluation - Yon Burnett M.D. - 04/04/2024 6:31 AM CST Preprocedure Anesthesia & H&P Assessment Procedure Summary Date/Time: 04/04/24 0715 Procedures: IR ENDOVASCULAR ANGIOPLASTY STENT LOWER EXTREMITY, left femoral access. (Right) IR IMAGING. 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 Location: [place] [address] / [facility] in [place], [place] Providers: Kemar Velásquez M.B.B.S. Pertinent components [...] Kidney Disease (+) Peripheral Arterial Disease (HCC) RESP (+) [...] PSYCH (+) Depression Major Recurrent Moderate (HCC) OBJECTIVE PHYSICAL EXAMINATION Airway (HEENT) Mallampati: III Cardiovascular Rhythm: Regular Pulmonary Pulmonary Assessment: Non labored General / Constitutional General State of Health:: ill appearing Neurological Neurologic Assessment: alert ASSESSMENT / PLAN ANESTHESIA PLAN ASA: 4 Anesthesia Plan: MAC Patient seen and allergies reviewed, anesthesia plan and risks discussed directly with patient /legal guardian or through an finance and administration manager. Risks/Benefits/Alternatives of Blood transfusion discussed with patient / legal guardian, includingan opportunity to ask questions and/or decline some or all transfusion therapies. The patient / legal guardian consented to the use of all blood products, as deemed medically necessary Approval to Proceed: approved for anesthesia RAL SURGERY PHYSICIAN ASSISTANT documented in this encounter Plan of Treatment Upcoming Encounters Date Type Department Care Team (Late st Contact Info) Description 05/10/2024 8:30 AM GENERAL SURGERY PHYSICIAN ASSISTANT Appointment Department of Radiology, [facility], in [address] [phone] Kemar Velásquez M.B.B.S. [address] [place] [phone] Discharge Disposition: Home or Self Care 05/10/2024 9:30 AM GENERAL SURGERY PHYSICIAN ASSISTANT Appointment Department of Vascular Medicine in [address] [phone] Kemar Velásquez M.B.B.S. [address] [place] [phone] documented as of this encounter Visit Diagnoses Not on filedocumented in this encounter Administered Medications Inactive Administered Medications - up to 3 most recent administrations Medication Order MAR Action Action Date Dose Rate Site acetaminophen injection intravenous, Administer over 15 Minutes, As needed, Starting on Tue04/04/24 at 0759, Anesthesia Intra-op Given 04/04/2024 7:59 AM GENERAL SURGERY PHYSICIAN ASSISTANT 1,000 mg ceFAZolin injection 2,000 mg (Ancef) 2,000 mg (rounded from 2,177.5 mg = [...] clearance factors., Indications: Prophylaxis, surgicalIndications:Prophylaxis, surgical Given 04/04/2024 8:01 AM GENERAL SURGERY PHYSICIAN ASSISTANT 2 g fentaNYL injection (Sublimaze) intravenous, As needed, Starting on Tue04/04/24 at 0837, Anesthesia Intra-op Given 04/04/2024 8:47 AM GENERAL SURGERY PHYSICIAN ASSISTANT 25 mcg Given 04/04/2024 8:45 AM GENERAL SURGERY PHYSICIAN ASSISTANT 25 mcg Given 04/04/2024 8:44 AM GENERAL SURGERY PHYSICIAN ASSISTANT 25 mcg heparin (porcine) 1,000 unit/mL injection intravenous, As needed, Starting on Tue04/04/24 at 0813, Anesthesia Intra-op Given 04/04/2024 8:13 AM GENERAL SURGERY PHYSICIAN ASSISTANT 7,000 Units phenylephrine injection intravenous, As needed, Starting on Tue04/04/24 at 0907, Anesthesia Intra-op Given 04/04/2024 9:10 AM GENERAL SURGERY PHYSICIAN ASSISTANT 100 mc g Given 04/04/2024 9:07 AM GENERAL SURGERY PHYSICIAN ASSISTANT 100 mcg protamine injection intravenous, As needed, Starting on Tue04/04/24 at 0902, Anesthesia Intra-op Given 04/04/2024 9:05 AM GENERAL SURGERY PHYSICIAN ASSISTANT 15 mg Given 04/04/2024 9:02 AM GENERAL SURGERY PHYSICIAN ASSISTANT 5 mg documented in this encounter Additional Health Concerns Assessment Noted Time PHQ-9 Depression Total Score: 3 01/04/20 18 10:38 AM CDT documented as of this encounter Care Teams Medical Staff Services Manager Relationship Specialty Start Date End Date Elsewhere, Pcp PCP - General Family Medicine 01/29/20 documented as of this encounter
--- OUTSIDE RECORDS SUMMARY | 2024-04-24 10:02 | XMS_ITS | Encounter Summary ---
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 [address] [place] [address] Phone: tel: fax: [facility] Referral ID Status Reason Start Date Expiration Date V isits Requested Visits Authorized [id number] Authorized 04/09/2024 04/09/2025 1 1 FORMER Reason for Visit * Reason Onset Date Comments Post Hospital Follow-up 04/04/2024 Encounter Details Date Type Department Care Team (Latest Contact Info) Description 04/04/2024 Clinical Communication Division of Vascular and Endovascular Surgery in [place], [place] [address] [place] [phone] Kemar Velásquez M.B.B.S. [address] [place] [phone] Post Hospital Follow-up Social History Tobacco Use Types Packs/Day Years Used Date Smoking Tobacco: Former Cigarettes 1 38.9 0 05/16/1983 - 04/2022 Smokeless Tobacco: Never Alcohol Use Standard Drinks/Week Comments Not Currently 0 (1 standard drink = 0.6 oz pur e alcohol) [facility] Utilities Answer Date Recorded In the past 12 months has e electric, gas, oil, or water [employer] threatened to shut off services in your [...] How often do you attend mandaen or amish serv ices? Never 03/24/2021 Do [...] medical appointments or from getting medications? No 11/2 In the past 12 months, has l [...] a [facility] place to live 04/04/2024 Education Answer Date Recorded What is the highest level of school you have completed or the highest degree you have received? Some college, no degree 03/24/2021 Sex and Gender Information Value Date Recorded Sex Assigned at Male 03/24/2021 8:13 PM TOP FORMER Legal Sex Male 12:04 AM TOP FORMER Gender Identity Male 08/31/2019 2:40 PM CDT Sexual Orientation Straight 08/31/2019 2: 40 PM CDT documented as of this encounter Miscellaneous Notes * Addendum Note - Kyle Correia M.S., R.N. - 04/09/2024 11:18 AM TOP FORMER Addended by: KYLE CORREIA on: 04/09/2024 11:18 AM Modules accepted: Orders FORMER * Telephone Encounter - Rose Lagos APRN, C.N.P. - 04/06/2024 11:05 AM TOP FORMER I have personally spoken with Mrs. Walton via telephone. She shares upon reviewing Mr. Walton's medication list and medication bottles, it does not appear that Plavix was prescribed or at least they do not have the medication at home. She wonders if he needs this medication. I thanked Mrs. Walton for sharing this information with me. I reviewed that based upon the discharge paperwork, Mr. Walton should be on Plavix therapy for 3 months. I apologize that Plavix was not prescribed and sent to their local pharmacy. I certainly can do that this morning. I also share thatomeprazole was switched to pantoprazole due to interactions with Plavix. She verbalized understanding. She did not have any further questions to ask and appreciated the returned phone call today. FORMER documented in this encounter Plan of Treatment Upcoming Encounters Date Type Department Care Team (Late st Contact Info) Description 05/10/2024 8:30 AM TOP FORMER Appointment Department of Radiology, [facility], in [place], [place] [address] [place] [address] Kemar Velásquez M.B.B.S. [address] [place] [phone] Discharge Disposition: Home or Self Care 05/10/2024 9:30 AM TOP FORMER Appointment Department of Vascular Medicine in [place], [place] [address] [place] [address] Kemar Velásquez M.B.B.S. 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) 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) Expected: 05/09/2024 (Approximate), Expires: 07/10/2025 documented as of this encounter Visit Diagnoses Diagnosis Peripheral Arterial Disease (HCC)- Primary 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) 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
--- OUTSIDE RECORDS SUMMARY | 2024-04-24 10:03 | XMS_ITS | Encounter Summary ---
Author Organization [facility] Address [address] [place] [address] Care Team Providers Care Steam Cleaning Machine Operator Name Role Phone Elsewhere, Pcp Primary Care Provider Unavailabl e Encounter Details Date Type Department Care Team (Late st Contact Info) Description 03/13/2024 Orders Only Division of Nephrology and Hypertension in [place], [place] [address] [place] [address] Haseeb Menon Jr., D.O. [address] [place] [address] Social History Tobacco Use Types Packs/Day Years Used Date Smoking Tobacco: Former Cigarettes 1 38.9 0 05/16/1983 - 04/2022 Smokeless Tobacco: Never Alcohol Use Standard Drinks/Week Comments Not Currently 0 (1 standard drink = 0.6 oz pur e alcohol) [facility] Utilities Answer Date Recorded In the past 12 months has [facility] [employer] gas, oil, or water [employer] threatened to shut off services in your [...] have a [facility] place to live 03/11/2024 Education Answer Date Recorded What is the highest level of school you have completed or the highest degree you have received? Some college, no degree 03/24/2021 Sex and Gender Information Value Date Recorded Sex Assigned at Male 03/24/2021 8:13 PM RADIOLOGY EQUIPMENT SERVICER Legal Sex Male 12:04 AM RADIOLOGY EQUIPMENT SERVICER Gender Identity Male 08/31/2019 2:40 PM CDT Sexual Orientation Straight 08/31/2019 2: 40 PM CDT documented as of this encounter Plan of Treatment Upcoming Encounters Date Type Department Care Team (Late st Contact Info) Description 05/10/2024 8:30 AM RADIOLOGY EQUIPMENT SERVICER Appointment Department of Radiology, [facility], in [place], [place] [address] [place] [address] Kemar Velásquez M.B.B.S. [address] [place] [address] Discharge Disposition: Home or Self Care 05/10/2024 9:30 AM RADIOLOGY EQUIPMENT SERVICER Appointment Department of Vascular Medicine in [place], [place] [address] [place] [address] Kemar Velásquez M.B.B.S. [address] [place] [address] documented as of this encounter Visit Diagnoses Not on filedocumented in this encounter Additional Health Concerns Assessment Noted Time PHQ-9 Depression Total Score: 3 01/04/20 18 10:38 AM CDT documented as of this encounter Care Teams Steam Cleaning Machine Operator Relationship Specialty Start Date End Date Elsewhere, Pcp PCP - General Family Medicine 01/29/20 documented as of this encounter
--- OUTSIDE RECORDS SUMMARY | 2024-04-24 10:03 | XMS_ITS | Encounter Summary ---
Author Organization [facility] Address [address] [place] [address] Care Team Providers Care Subassembler Name Role Phone Elsewhere, Pcp Primary Care [...] = 0.6 oz pur e alcohol) [facility] Utilities Answer Date Recorded In the past 12 months has e [employer] gas, oil, or water [employer] threatened to shut off services in [...] How often do you attend christianity or adventism serv ices? Never 03/24/2021 Do [...] a [facility] place to live 03/11/2024 Education Answer Date Recorded What is the highest level of school you have completed or the highest degree you have received? Some college, no degree 03/24/2021 Sex and Gender Information Value Date Recorded Sex Assigned at Male 03/24/2021 8:13 PM PERSONAL COMPUTER NETWORK ENGINEER Legal Sex Male 12:04 AM PERSONAL COMPUTER NETWORK ENGINEER Gender Identity Male 08/31/2019 2:40 PM CDT Sexual Orientation Straight 08/31/2019 2: 40 PM CDT documented as of this encounter Plan of Treatment Upcoming Encounters Date Type Department Care Team (Late st Contact Info) Description 05/10/2024 8:30 AM PERSONAL COMPUTER NETWORK ENGINEER Appointment Department of Radiology, [facility], in [place], [place] [address] [place] [address] Kemar Velásquez M.B.B.S. [address] [place] [phone] Discharge Disposition: Home or Self Care 05/10/2024 9:30 AM PERSONAL COMPUTER NETWORK ENGINEER Appointment Department of Vascular Medicine in [place], [place] [address] [place] [phone] Kemar Velásquez M.B.B.S. [address] [place] [phone] documented as of this encounter Procedures Procedure [...] documented as of this encounter Care Teams Subassembler Relationship Specialty Start Date End Date Elsewhere, Pcp PCP - General Family Medicine 01/29/20 documented as of this encounter
--- OUTSIDE RECORDS SUMMARY | 2024-04-24 10:03 | XMS_ITS | Encounter Summary ---
Author Organization [facility] Address [address] [place] [address] Care Team Providers Care Line Installation Supervisor Name Role Phone Elsewhere, Pcp Primary [...] 0.6 oz pur e alcohol) [facility] Utilities Answer Date Recorded In the past 12 months has e [employer], gas, oil, or water [employer] threatened to shut off services in your [...] How often do you attend religion or yazidism serv ices? Never 03/24/2021 Do [...] have a [facility] place to live 03/11/2024 Education Answer Date Recorded What is the highest level of school you have completed or the highest degree you have received? Some college, no degree 03/24/2021 Sex and Gender Information Value Date Recorded Sex Assigned at Male 03/24/2021 8:13 PM CLOTH REELER Legal Sex Male 12:04 AM CLOTH REELER Gender Identity Male 08/31/2019 2:40 PM CDT Sexual Orientation Straight 08/31/2019 2: 40 PM CDT documented as of this encounter Plan of Treatment Upcoming Encounters Date Type Department Care Team (Late st Contact Info) Description 05/10/2024 8:30 AM CLOTH REELER Appointment Department of Radiology, [facility], in [place], [place] [address] [place] [address] Kemar Velásquez M.B.B.S. [address] [place] [phone] Discharge Disposition: Home or Self Care 05/10/2024 9:30 AM CLOTH REELER Appointment Department of Vascular Medicine in [place], [place] [address] [place] [phone] Kemar Velásquez M.B.B.S. [address] [place] [phone] documented as of this encounter Procedures Procedure [...] as of this encounter Care Teams Line Installation Supervisor Relationship Specialty Start Date End Date Elsewhere, Pcp PCP - General Family Medicine 01/29/20 documented as of this encounter
--- OUTSIDE RECORDS SUMMARY | 2024-04-24 10:03 | XMS_ITS | Encounter Summary ---
Author Organization [facility] Address [address] [place] [address] Care Team Providers Care Feather Cutting Machine Feeder Name Role Phone Elsewhere, Pcp [...] with IV Contrast Jayjay Pak P.A.-C. [address] [place] [address] Phone: tel: fax: [facility] Referral ID Status Reason Start Date Expiration Date Visits Re quested Visits Authorized [id number] Closed 03/07/2024 03/07/2025 1 1 Reason for Visit * MRI/CAT/PET Scan (Routine) - Closed Specialty Diagnoses / Procedures Referred By Contac t Referred To Contact Radiology Diagnoses Follow Up Examination Status Post Surgery Peripheral Arterial Disease (HCC) Wound Foot Open Subsequent Left Wound Foot Open Subsequent Right Procedures MR Foot Right without and with IV Contrast Jayjay Pak P.A.-C. [address] [place] [address] Phone: tel: fax: [facility] Referral ID Status Reason Start Date Expiration Date Visits Re quested Visits Authorized [id number] Closed 03/07/2024 03/07/2025 1 1 Encounter Details Date Type Department Care Team (Latest Contact Info) Description 03/09/2024 6:25 PM CDT - 03/09/2024 11:59 PM CDT Hospital Encounter Department of Radiology, [facility], in [place], [place] [address] [place] [address] Jayjay Pak P.A.-C. [address] [place] [address] Follow Up Examination Status Post Surgery; Peripheral [...] How often do you attend amish or hindu serv ices? Never 03/24/2021 Do [...] 10/20/2018 [facility] - Occupational Stress Questionnaire Answer Date [...] Sex Assigned at Male 03/24/2021 8:13 PM FOUNDATION DRILL OPERATOR HELPER Legal Sex Male 12:04 AM FOUNDATION DRILL OPERATOR HELPER Gender Identity Male 08/31/2019 2:40 [...] mg of calcium by mouth at bedtime. doxepin (SINEquan) 25 mg capsule Take 25 [...] of elemental iron(325 mg ferrous sulfate) daily lisinopriL (PRINIVIL,ZESTRI L) 40 mg tablet Take 0.5 tablets (20 mg total) by mouth daily. Patient reports it was decreased by primary physician about 04/2020 per patient report. 45 tablet 3 09/13/2023 5 methocarbamoL (Robaxin) 750 mg tablet Take 750 mg by mouth 3 (three) times a day as needed for muscle spasms. minocycline (MINOCIN,DYNACIN ) 100 mg capsule Take 100 mg by mouth daily. 01/14/2022 multivitamin renal failure (Dialyvite) 50-0.5 mg per tablet Take 1 tablet by mouth daily. nortriptyline (PAMELOR) 50 mg capsule Take 100 mg by mouth at bedtime. 5 12/06/2017 oxyCODONE (ROXICODONE) 5 mg immediate release tabletIndication s:Acute Pain Exception Take 1 tablet (5 mg total) by mouth every 6 (six) hours as needed for severe pain or score 7-10 of 10 Indication: Acute Pain Exception. for pain 6 tablet 02/16/2023 pramipexole (Mirapex) 1 mg tablet Take 1 mg by mouth 2 (two) times a day. 1 mg at 3pm and 1 mg between 9 and 10 pm daily. UNABLE TO FIND Inject 1 each under the skin continuously. Insulin aspart pump. sennosides-docus ate sodium (SENOKOT-S) 8.6-50 mg per tablet Take 1 tablet by mouth 2 (two) times a day. 180 tablet 3 03/21/2023 4 carvediloL (COREG) 25 mg tablet Take 2 tablets (50 mg total) by mouth 2 (two) times a day with meals. 03/25/2021 4 furosemide (LASIX) 80 mg tablet Take 2 tablets (160 mg total) by mouth 2 (two) times a day. 360 tablet 3 04/26/2023 4 omeprazole (PriLOSEC) [address] capsule Take 40 mg by mouth every evening. 09/25/2015 4 documented as of this encounter Plan of Treatment Upcoming Encounters Date Type Department Care Team (Late st Contact Info) Description 05/10/2024 8:30 AM FOUNDATION DRILL OPERATOR HELPER Appointment Department of Radiology, [facility], in [place], [place] [address] [place] [address] Kemar Velásquez M.B.B.S. [address] [place] [address] Discharge Disposition: Home or Self Care 05/10/2024 9:30 AM FOUNDATION DRILL OPERATOR HELPER Appointment Department of Vascular Medicine in [place], [place] [address] [place] [address] Kemar Velásquez M.B.B.S. [address] [place] [address] documented as of this encounter Procedures Procedure [...] would have a similarappearance. Jayjay Pak P.A.-C. IMG MRI PROCEDURES Final Result documented in this encounter Visit Diagnoses Diagnosis Follow Up Examination Status Post Surgery Peripheral Arterial Disease (HCC) Wound Foot Open Subsequent Left Wound Foot Open Subsequent Right documented in this encounter Administered Medications Inactive [...] documented as of this encounter Care Teams Feather Cutting Machine Feeder Relationship Specialty Start Date End Date Elsewhere, Pcp PCP - General Family Medicine 01/29/20 documented as of this encounter
--- OUTSIDE RECORDS SUMMARY | 2024-04-24 10:03 | XMS_ITS | Encounter Summary ---
Author Organization [facility] Address [address] [place] [address] Care Team Providers Care Phytopathology Teacher Name Role Phone Elsewhere, Pcp Primary Care Provider Unavailabl e Reason for Visit * Outpatient (Routine) - Closed Specialty Diagnoses / Procedures Referred By Robi t Referred To Contact Vascular Surgery Diagnoses Peripheral Arterial Disease (HCC) Jayjay Pak, [place] [address] [place] [phone] Phone: tel: fax: Health System Referral ID Status Reason Start Date Expiration Date Visits Re quested Visits Authorized [id number] Closed 03/06/2024 09/05/2025 1 1 Encounter Details Date Type Department Care Team (Latest Contact Info) Description 03/12/2024 10:40 AM CDT Comprehensive Visit Division of Vascular and Endovascular Surgery in [place], [place] [address] [place] [address] Kemar Velásquez M.B.B.S. 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 Never 03/24/2021 Do [...] Score 0 10/20/2018 [facility] - Occupational Stress Questionnaire Answer [...] Assigned at Male 03/24/2021 8:13 PM COMPUTER ART INSTRUCTOR Legal Sex Male 12:04 AM COMPUTER ART INSTRUCTOR Gender Identity Male 08/31/2019 2:40 PM [...] for left leg CLTI and performed left POCKET OPERATOR endarterectomy with patch angioplasty along with SFA [...] st Contact Info) Description 05/10/2024 8:30 AM COMPUTER ART INSTRUCTOR Appointment Department of Radiology, [facility], in [place], [place] [address] [place] [phone] Kemar Velásquez M.B.B.S. [address] [place] [phone] Discharge Disposition: Home or Self Care 05/10/2024 9:30 AM COMPUTER ART INSTRUCTOR Appointment Department of Vascular Medicine in [place], [place] [address] [place] [phone] Kemar Velásquez M.B.B.S. 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
--- OUTSIDE RECORDS SUMMARY | 2024-04-24 10:03 | XMS_ITS | Encounter Summary ---
Author Organization [facility] Address [address] [place] [address] Care Team Providers Care Engineering And Development Director Name Role Phone Elsewhere, Pcp Primary [...] drink = 0.6 oz pur e alcohol) [facility] Utilities Answer Date Recorded In the past 12 months has e [employer], gas, oil, or water 1calendar threatened to shut off services in your [...] How often do you attend advent or mu-ism serv ices? Never 03/24/2021 Do [...] [facility] 03/11/2024 Education Answer Date Recorded What is the highest level of school you have completed or the highest degree you have received? Some college, no degree 03/24/2021 Sex and Gender Information Value Date Recorded Sex Assigned at Male 03/24/2021 8:13 PM REHABILITATION PROGRAM MANAGER Legal Sex Male 12:04 AM REHABILITATION PROGRAM MANAGER Gender Identity Male 08/31/2019 2:40 PM CDT Sexual Orientation Straight 08/31/2019 2: 40 PM CDT documented as of this encounter Plan of Treatment Upcoming Encounters Date Type Department Care Team (Late st Contact Info) Description 05/10/2024 8:30 AM REHABILITATION PROGRAM MANAGER Appointment Department of Radiology, [facility], in [place], [place] [address] [place] [address] Kemar Velásquez M.B.B.S. [address] [place] [phone] Discharge Disposition: Home or Self Care 05/10/2024 9:30 AM REHABILITATION PROGRAM MANAGER Appointment Department of Vascular Medicine in [place], [place] [address] [place] [phone] Kemar Velásquez M.B.B.S. [address] [place] [phone] documented as of this encounter Procedures Procedure [...] as of this encounter Care Teams Engineering And Development Director Relationship Specialty Start Date End Date Elsewhere, Pcp PCP - General Family Medicine 01/29/20 documented as of this encounter
--- OUTSIDE RECORDS SUMMARY | 2024-04-24 10:03 | XMS_ITS | Encounter Summary ---
Author Organization [facility] Address [address] [place] [address] Care Team Providers Care Aviation Technician Name Role Phone Elsewhere, Pcp Primary Care Provider Unavailabl e Reason for Referral * Outpatient (Routine) - Closed Specialty Diagnoses / Procedures Referred By Branac t Referred To Contact Diagnoses Peripheral Arterial Disease (HCC) Wound Foot Open Subsequent Left Wound Foot Open Subsequent Right Procedures DX Foot Bilateral 3+ Views Jayjay Pak, PFeiA.-CFei [address] [place] [address] Phone: tel: fax: [facility] Region Referral ID Status Reason Start Date Expiration Date Visits Re quested Visits Authorized [id number] Closed 03/05/2024 03/05/2025 1 1 Reason for Visit * Outpatient (Routine) - Closed Specialty Diagnoses / Procedures Referred By Contac t Referred To Contact Diagnoses Peripheral Arterial Disease (HCC) Wound Foot Open Subsequent Left Wound Foot Open Subsequent Right Procedures DX Foot Bilateral 3+ Views Jayjay Pak, P.A.-CFei [address] [place] [address] Phone: tel: fax: [facility] Region Referral ID Status Reason Start Date Expiration Date Visits Re quested Visits Authorized [id number] Closed 03/05/2024 03/05/2025 1 1 Encounter Details Date Type Department Care Team (Latest Contact Info) Description 03/07/2024 10:12 AM CDT - 03/07/2024 11:59 PM CDT Hospital Encounter Department of Radiology in [place], [place] [address] [place] [address] Jayjay Pak P.A.-C. [address] [place] [address] Peripheral Arterial Disease (HCC); Wound Foot Open [...] How often do you attend scientology or sikh serv ices? 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/2021 8:13 PM ANIMAL CONTROL LICENSING WORKER Legal Sex Male 12:04 AM ANIMAL CONTROL LICENSING WORKER Gender Identity Male 08/31/2019 2:40 PM [...] st Contact Info) Description 05/10/2024 8:30 AM ANIMAL CONTROL LICENSING WORKER Appointment Department of Radiology, [facility], in [place], [place] [address] [place] [address] Kemar Velásquez M.B.B.S. [address] [place] [address] Discharge Disposition: Home or Self Care 05/10/2024 9:30 AM ANIMAL CONTROL LICENSING WORKER Appointment Department of Vascular Medicine in [place], [place] [address] [place] [address] Kemar Velásquez M.B.B.S. [address] [place] [address] documented as of this encounter Procedures Procedure [...] represent joint bodies versusosseous trigonum. . Jayjay Pak P.A.-C. IMG DIAGNOSTIC IMAGING P ROCEDURES Final Result documented in this encounter Visit Diagnoses Diagnosis Peripheral Arterial Disease (HCC) Wound Foot Open Subsequent Left Wound Foot Open Subsequent Right documented in this encounter Additional Health Concerns Assessment Noted Time PHQ-9 Depression Total Score: 3 01/04/20 18 10:38 AM CDT documented as of this encounter Care Teams Aviation Technician Relationship Specialty Start Date End Date Elsewhere, Pcp PCP - General Family Medicine 01/29/20 documented as of this encounter
--- OUTSIDE RECORDS SUMMARY | 2024-04-24 10:03 | XMS_ITS | Encounter Summary ---
Author Organization [facility] Address [address] [place] [address] Care Team Providers Care Animal Science Professor Name Role Phone Elsewhere, Pcp Primary Care Provider Unavailabl e Encounter Details Date Type Department Care Team (Late st Contact Info) Description 03/07/2024 Orders Only Department of Vascular Medicine in [place], [place] [address] [place] [phone] Jayjay Pak, Laine-C. [address] [place] [address] Social History Tobacco Use Types Packs/Day Years Used Date Smoking Tobacco: Former Cigarettes 1 38.9 0 05/16/1983 - 04/2022 Smokeless Tobacco: Never Alcohol Use Standard Drinks/Week Comments Not Currently 0 (1 standard drink = 0.6 oz pur e alcohol) [facility] Utilities Answer Date Recorded In the past [address] [facility] [employer], oil, or water [employer] threatened to shut off services in your [...] How often do you attend spiritism or protestant serv ices? Never 03/24/2021 Do [...] PHQ-2 Score 0 10/20/2018 [facility] of Occupat ional Health - Occupational Stress [...] situation today? I have a [facility] place to live 03/11/2024 Education Answer Date Recorded What is the highest level of school you have completed or the highest degree you have received? Some college, no degree 03/24/2021 Sex and Gender Information Value Date Recorded Sex Assigned at Male 03/24/2021 8:13 PM OPERATIONS ACCOUNTANT Legal Sex Male 12:04 AM OPERATIONS ACCOUNTANT Gender Identity Male 08/31/2019 2:40 PM CDT Sexual Orientation Straight 08/31/2019 2: 40 PM CDT documented as of this encounter Plan of Treatment Upcoming Encounters Date Type Department Care Team (Late st Contact Info) Description 05/10/2024 8:30 AM OPERATIONS ACCOUNTANT Appointment Department of Radiology, [facility], in [place], [place] [address] [place] [address] Kemar Velásquez M.B.B.S. [address] [place] [phone] Discharge Disposition: Home or Self Care 05/10/2024 9:30 AM OPERATIONS ACCOUNTANT Appointment Department of Vascular Medicine in [place], [place] [address] [place] [address] Kemar Velásquez M.B.B.S. [address] [place] [address] documented as of this encounter Visit Diagnoses Not on filedocumented in this encounter Additional Health Concerns Assessment Noted Time PHQ-9 Depression Total Score: 3 01/04/20 18 10:38 AM CDT documented as of this encounter Care Teams Animal Science Professor Relationship Specialty Start Date End Date Elsewhere, Pcp PCP - General Family Medicine 01/29/20 documented as of this encounter
--- OUTSIDE RECORDS SUMMARY | 2024-04-24 10:03 | XMS_ITS | Encounter Summary ---
Author Organization [facility] Address [address] [place] [address] Care Team Providers Care Perinatal Educator Name Role Phone Elsewhere, Pcp Primary Care Provider Unavailabl e Encounter Details Date Type Department Care Team (Late st Contact Info) Description 03/20/2024 Clinical Communication Division of Vascular and Endovascular Surgery in [place], [place] [address] [place] [phone] Kemar Velásquez M.B.B.S. [address] [place] [phone] Social History Tobacco Use Types Packs/Day Years Used Date Smoking Tobacco: Former Cigarettes 1 38.9 0 05/16/1983 - 04/2022 Smokeless Tobacco: Never Alcohol Use Standard Drinks/Week Comments Not Currently 0 (1 standard drink = 0.6 oz pur e alcohol) [facility] Utilities Answer Date Recorded In the past 12 months has [facility] [employer], oil, or water [employer] threatened to shut off services in your [...] How often do you attend mormon or hinduism serv ices? Never 03/24/2021 Do [...] have a [facility] place to live 03/11/2024 Education Answer Date Recorded What is the highest level of school you have completed or the highest degree you have received? Some college, no degree 03/24/2021 Sex and Gender Information Value Date Recorded Sex Assigned at Male 03/24/2021 8:13 PM INTERACTIVE ACCOUNT MANAGER Legal Sex Male 12:04 AM INTERACTIVE ACCOUNT MANAGER Gender Identity Male 08/31/2019 2:40 PM CDT Sexual Orientation Straight 08/31/2019 2: 40 PM CDT documented as of this encounter Plan of Treatment Upcoming Encounters Date Type Department Care Team (Late st Contact Info) Description 05/10/2024 8:30 AM INTERACTIVE ACCOUNT MANAGER Appointment Department of Radiology, [facility], in [place], [place] [address] [place] [address] Kemar Velásquez M.B.B.S. [address] [place] [phone] Discharge Disposition: Home or Self Care 05/10/2024 9:30 AM INTERACTIVE ACCOUNT MANAGER Appointment Department of Vascular Medicine in [place], [place] [address] [place] [address] Kemar Velásquez M.B.B.S. [address] [place] [address] documented as of this encounter Visit Diagnoses Not on filedocumented in this encounter Additional Health Concerns Assessment Noted Time PHQ-9 Depression Total Score: 3 01/04/20 18 10:38 AM CDT documented as of this encounter Care Teams Perinatal Educator Relationship Specialty Start Date End Date Elsewhere, Pcp PCP - General Family Medicine 01/29/20 documented as of this encounter
--- OUTSIDE RECORDS SUMMARY | 2024-04-24 10:03 | XMS_ITS | Encounter Summary ---
Author Organization [facility] Address [address] [place] [address] Care Team Providers Care Dog Pound Attendant Name Role Phone Elsewhere, Pcp Primary [...] Expiration Date Visits Re quested Visits Authorized [id number] 1 1 Encounter Details Date Type Department Care Team (Late st Contact Info) Description 04/03/2024 12:30 PM SALES AND BUSINESS DEVELOPMENT MANAGER - 04/03/2024 4:14 PM SALES AND BUSINESS DEVELOPMENT MANAGER Surgery RST ROMB MAIN OR [address] [place] [phone] Kemar Velásquez M.B.B.S. [address] [place] [phone] IR ENDOVASCULAR ANGIOPLASTY STENT LOWER EXTREMITY, right femoral access. Social History Tobacco Use Types Packs/Day Years Used Date Smoking Tobacco: Former Cigarettes 1 38.9 0 05/16/1983 - 04/2022 Smokeless Tobacco: Never Alcohol Use Standard Drinks/Week Comments Not Currently 0 (1 standard drink = 0.6 oz pur e alcohol) [facility] Utilities Answer Date Recorded In the past 12 months has e electric, gas, oil, or water company [...] How often do you attend denominational or zoroastrian serv ices? Never 03/24/2021 Do [...] Answer Date Recorded PHQ-2 Score 0 10/20/2018 [place] of Occupat ional Health - Occupational Stress [...] [facility] place to live 04/04/2024 Education Answer Date Recorded What is the highest level of school you have completed or the highest degree you have received? Some college, no degree 03/24/2021 Sex and Gender Information Value Date Recorded Sex Assigned at Male 03/24/2021 8:13 PM SALES AND BUSINESS DEVELOPMENT MANAGER Legal Sex Male 12:04 AM SALES AND BUSINESS DEVELOPMENT MANAGER Gender Identity Male 08/31/2019 2:40 PM CDT Sexual Orientation Straight 08/31/2019 2: 40 PM CDT documented as of this encounter Last Filed Vital Signs Vital Sign Reading Time Taken Comments Blood Pressure 189/68 04/03/2024 11:29 AM SALES AND BUSINESS DEVELOPMENT MANAGER Pulse 90 04/03/2024 11:29 AM SALES AND BUSINESS DEVELOPMENT MANAGER Temperature 36.6 C (97.9 F) 04/03/2024 11:29 AM SALES AND BUSINESS DEVELOPMENT MANAGER Respiratory Rate 18 04/03/2024 11:29 AM SALES AND BUSINESS DEVELOPMENT MANAGER Oxygen Saturation 98% 04/03/2024 11:29 AM SALES AND BUSINESS DEVELOPMENT MANAGER Inhaled Oxygen Concentration - - Weight 87.1 kg (192 lb) 04/03/2024 11:11 AM SALES AND BUSINESS DEVELOPMENT MANAGER Height 175.3 cm (5' 9) 04/03/2024 11:11 AM SALES AND BUSINESS DEVELOPMENT MANAGER Body Mass Index 28.35 04/03/2024 11:11 AM SALES AND BUSINESS DEVELOPMENT MANAGER documented in this encounter Discharge Summaries * Michelle Meier APRN, C.N.P., M.S.N. - 04/04/2024 11:14 AM CST DISCHARGE SUMMARY BRIEF OVERVIEW Hospital: [facility] Discharge Provider: Kemar Velásquez M.B.B.S. Primary Team: [facility] Vascular Surgery - [facility] Primary Care Provider: Dr. 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 Kemar Velásquez M.B.B.S.Anderson, Peter B, M.D. [facility] ROMB OR 04/04/2024 IR ENDOVASCULAR ANGIOPLASTY, DCB LOWER EXTREMITY, left femoral access., IR IMAGING. Shuja, Kemar, M.B.B.S.SturCristal Montenegro D.O.Kaoukabani, Georges, M.D., M.S. RST ROMB OR [...] dismissal, pain medication (examples: oxycodone, Dilaudid, Tramadol, [place], etc.)will be prescribed to you if needed. Duration will be determined on a [id number]-[id number] basis and will not exceed 2 weeks. [...] contact the vascular scheduling office by calling [phone]. Should you need to contact Dr. Velásquez or his service (pager [phone]) in the interim, you may do sothrough his medical educator at during normal business hours of 8 to 5 Tuesday through Tuesday or, in an emergency situation, through the [place] utilities operator at . OUTPATIENT FOLLOW UP For appointment details refer to your Patient Appointment Guide. 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 S AND BUSINESS DEVELOPMENT MANAGER S AND BUSINESS DEVELOPMENT MANAGER S AND BUSINESS DEVELOPMENT MANAGER documented in this encounter Discharge Instructions * Attachments The following attachments cannot be sent through Care Everywhere. * Clopidogrel (By mouth) ([place]) * Pantoprazole (By mouth) ([place]) documented in this encounter Medications at Time [...] return to his usual CCPD home regimen S AND BUSINESS DEVELOPMENT MANAGER * Jessica Guzman APRN, C.N.P., M.S.N. - 04/04/2024 12:12 PM CST NEPHROLOGY CONSULT SERVICE - PROGRESS NOTE Hospital Day 0 SUBJECTIVE Mr. Walton is seen in his hospital room today. Patient's daughter and are at bedside. Patientesdrasd just come back from the OR from a vascular surgery. Patient is comfortably resting in bed. Patient is on a 6 hours bedrest until 1530 with plans to discharge after. Patient denies any acute events overnight. He denies any shortness of breath, chest pain, or nausea. Mr. Walton had PD last night with the following prescription: CCPD; 8 hours; 4 exchanges; 2.5 L fill volume; 1.5% glucose; NO day dwell as his usually outpatient routine. Patient states that he tolerated this well. Due to patient discharging this afternoon, we will not be placing PD orders today. 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 Duvall, Nephrology distributor sales consultant. For questions or concerns, please contact Nephrology [employer] ATTENDANT/PA pager ([phone]). S AND BUSINESS DEVELOPMENT MANAGER * Ozzy Marcos M.D., M.S. 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 Please page [phone] ([facility]) with any questions. Plan and assessment were discussed with Dr. Velásquez, who was in agreement. Dick Marcos M.D., M.S. PGY1 - General Surgery [id number] S AND BUSINESS DEVELOPMENT MANAGER * Tammy Yancey Pharm.D., R.Ph., BCPS - [...] TBD Jose Carlos Yancey Pharm.D., R.Ph., BCPS S AND BUSINESS DEVELOPMENT MANAGER * Clarice Olivo Pharm.D., R.Ph. - 04/03/2024 [...] under the skin continuously. Insulin aspart pump. S AND BUSINESS DEVELOPMENT MANAGER documented in this encounter Consult Notes * [...] at home. His peritoneal dialysisis managed through [facility] dialysis unit under the direction of Dr. [...] the hospital as it is [facility] non formulary. Nephrology will order and [...] dismissal -- Outpatient PD is managed by [facility] Mr. Walton's case has been staffed with Dr. Duvall, Nephrology distributor sales consultant. For questions or concerns, please contact Nephrology [employer] ATTENDANT/PA pager ([phone]). S AND BUSINESS DEVELOPMENT MANAGER documented in this encounter Nursing Notes * [...] free from fall/fall injury Outcome: Not Progressing S AND BUSINESS DEVELOPMENT MANAGER documented in this encounter OR Notes * Op Note - Kemar Velásquez M.B.BFeiS. 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 Completion angiogram showed excellent luminal gain, no dissection, no distal embolization and a 3 vessel run-off, mainly via peroneal and PT. Plantar arteries were also patent. The sheath was removed, protamine given slowly and pressure held for 30 minutes. Frankie ReneeB.S. S AND BUSINESS DEVELOPMENT MANAGER * Brief Op Note - Cristal Pfeiffer [...] post op Complications None Cristal Pfeiffer D.O. S AND BUSINESS DEVELOPMENT MANAGER * Op Note - Theodore Crocker M.D. [...] then inserted and exchanged to a 4 [place] sheath. An Omni Flush catheterwas then advanced [...] Kemar Velásquez M.B.B.S. at 04/03/2024 10:10 PM SALES AND BUSINESS DEVELOPMENT MANAGER S AND BUSINESS DEVELOPMENT MANAGER S AND BUSINESS DEVELOPMENT MANAGER * Brief Op Note - Theodore Crocker [...] Popliteal aneurysm: no Additional Vessels Treated? No S AND BUSINESS DEVELOPMENT MANAGER S AND BUSINESS DEVELOPMENT MANAGER documented in this encounter Miscellaneous Notes * Hospital Course - Michelle Meier APRN, C.N.P., M.S.N. 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 Nephrology was consulted and peritoneal dialysis was continued. Ongoing management of chronic medical conditions per primary care provider. S AND BUSINESS DEVELOPMENT MANAGER S AND BUSINESS DEVELOPMENT MANAGER S AND BUSINESS DEVELOPMENT MANAGER S AND BUSINESS DEVELOPMENT MANAGER S AND BUSINESS DEVELOPMENT MANAGER S AND BUSINESS DEVELOPMENT MANAGER S AND BUSINESS DEVELOPMENT MANAGER S AND BUSINESS DEVELOPMENT MANAGER documented in this encounter Plan of Treatment Upcoming Encounters Date Type Department Care Team (Late st Contact Info) Description 05/10/2024 8:30 AM SALES AND BUSINESS DEVELOPMENT MANAGER Appointment Department of Radiology, [facility], in [address] [phone] Kemar Velásquez M.B.B.S. [address] [place] [phone] Discharge Disposition: Home or Self Care 05/10/2024 9:30 AM SALES AND BUSINESS DEVELOPMENT MANAGER Appointment Department of Vascular Medicine in [place], [place] [address] [place] [phone] Kemar Velásquez M.B.B.S. 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) ACT, POCT, B Routine 04/04/2024 8:47 AM SALES AND BUSINESS DEVELOPMENT MANAGER CBC WITHOUT DIFFERENTIAL, B Timed 04/04/2024 4:22 AM SALES AND BUSINESS DEVELOPMENT MANAGER TROPONIN T, 5TH GEN, P Timed 04/04/2024 4:22 AM SALES AND BUSINESS DEVELOPMENT MANAGER BASIC METABOLIC PANEL, S/P Timed 04/04/2024 4:22 AM SALES AND BUSINESS DEVELOPMENT MANAGER TROPONIN T, 6H, 5TH GEN, P Timed 04/04/2024 12:10 AM SALES AND BUSINESS DEVELOPMENT MANAGER TROPONIN T, 2H/6H REFLEX, 5TH GEN, P Timed 04/03/2024 8:18 PM SALES AND BUSINESS DEVELOPMENT MANAGER ADULT OXYGEN THERAPY Routine 04/03/2024 6:43 PM SALES AND BUSINESS DEVELOPMENT MANAGER ADULT OXYGEN THERAPY Routine 04/03/2024 6:43 PM SALES AND BUSINESS DEVELOPMENT MANAGER TROPONIN T, BASELINE, 5TH GEN, P STAT 04/03/2024 6:04 PM SALES AND BUSINESS DEVELOPMENT MANAGER CBC WITH DIFFERENTIAL, B STAT 04/03/2024 6:04 PM SALES AND BUSINESS DEVELOPMENT MANAGER PHOSPHORUS (INORGANIC), S STAT 04/03/2024 6:04 PM SALES AND BUSINESS DEVELOPMENT MANAGER MAGNESIUM, S STAT 04/03/2024 6:04 PM SALES AND BUSINESS DEVELOPMENT MANAGER BASIC METABOLIC PANEL, S/P STAT 04/03/2024 6:04 PM SALES AND BUSINESS DEVELOPMENT MANAGER IR IMAGING RAD - Routine (most inpatients and all outpatients) 04/03/2024 5:17 PM SALES AND BUSINESS DEVELOPMENT MANAGER Peripheral Arterial Disease (HCC) 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) DX CHEST PORTABLE 1 VIEW RAD - Emergent (Fastest; for the most critically ill patients) 04/03/2024 5:11 PM SALES AND BUSINESS DEVELOPMENT MANAGER ECG STAT 04/03/2024 4:55 PM SALES AND BUSINESS DEVELOPMENT MANAGER ACT, POCT, B Routine 04/03/2024 4:43 PM SALES AND BUSINESS DEVELOPMENT MANAGER HEMOGLOBIN (HGB), POCT, B Routine 04/03/2024 4:40 PM SALES AND BUSINESS DEVELOPMENT MANAGER CONTINUOUS CYCLING PERITONEAL DIALYSIS (CCPD) Routine 04/03/2024 4:26 PM SALES AND BUSINESS DEVELOPMENT MANAGER ACT, POCT, B Routine 04/03/2024 3:20 PM SALES AND BUSINESS DEVELOPMENT MANAGER ANGIOPLASTY/STENT ENDOVASCULAR FEMORAL AND/OR POPLITEAL AND/OR TIBIAL ARTERY 04/03/2024 1:21 PM SALES AND BUSINESS DEVELOPMENT MANAGER Peripheral Arterial Disease (HCC) 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) Case Notes DISPATCHER SERVICE CHIEF 1106 HEMOGLOBIN A1C, B STAT 04/03/2024 1:1 9 PM SALES AND BUSINESS DEVELOPMENT MANAGER BASIC METABOLIC PANEL, S/P STAT 04/03/2024 1:19 PM SALES AND BUSINESS DEVELOPMENT MANAGER GLUCOSE, VENOUS, B STAT 04/03/2024 1: 18 PM SALES AND BUSINESS DEVELOPMENT MANAGER POTASSIUM, VENOUS, B STAT 04/03/2024 1:18 PM SALES AND BUSINESS DEVELOPMENT MANAGER CALCIUM, IONIZED, VENOUS, B STAT 04/03/2024 1:18 PM SALES AND BUSINESS DEVELOPMENT MANAGER LACTATE, VENOUS, B STAT 04/03/2024 1: 18 PM SALES AND BUSINESS DEVELOPMENT MANAGER SODIUM, VENOUS, B STAT 04/03/2024 1:1 8 PM SALES AND BUSINESS DEVELOPMENT MANAGER PATIENT STATUS STAT 04/03/2024 1:18 PM SALES AND BUSINESS DEVELOPMENT MANAGER VENOUS BLOOD GAS W/COOX, B STAT 04/03/2024 1:18 PM SALES AND BUSINESS DEVELOPMENT MANAGER GLUCOSE POCT, B Routine 04/03/2024 1:13 PM SALES AND BUSINESS DEVELOPMENT MANAGER MISC RESEARCH ORDER, B Routine 04/03/2024 11:20 AM SALES AND BUSINESS DEVELOPMENT MANAGER documented in this encounter Results * IR IMAGING (04/04/2024 9:42 AM SALES AND BUSINESS DEVELOPMENT MANAGER) Anatomical Region Laterality Modality N/A Other Narrative 04/05/2024 7:12 AM SALES AND BUSINESS DEVELOPMENT MANAGER Performed by surgeon - see Op Note for result. Kemar Reyes IMG IR PROCEDURES Final Res ult * (ABNORMAL) ACT (Activated Clotting Time), POCT (04/04/2024 8:47 AM SALES AND BUSINESS DEVELOPMENT MANAGER) [facility] Activated Clotting Time 262(H) 82 - 152 sec 04/04/2024 8:48 AM SALES AND BUSINESS DEVELOPMENT MANAGER PCLX 04/04/2024 8:47 AM SALES AND BUSINESS DEVELOPMENT MANAGER 04/04/2024 8:49 AM SALES AND BUSINESS DEVELOPMENT MANAGER us Unknown Provider LAB POCT ORDERABLES - DEVICE Fi nal Result Performing Organization Address [facility] Co de Phone Number [facility] [address] PCLX [facility] 200 [place] [address] * (ABNORMAL) Troponin T, 5th Generation (04/04/2024 4:22 AM SALES AND BUSINESS DEVELOPMENT MANAGER) [facility] Troponin T, 5th gen 155(H) <=15 ng/L 04/04/2024 4:56 AM SALES AND BUSINESS DEVELOPMENT MANAGER [facility] Comment:Consider acute myoca rdial injury Blood (Blood, Venous) 04/04/2024 4:22 AM SALES AND BUSINESS DEVELOPMENT MANAGER 04/04/2024 4:39 AM SALES AND BUSINESS DEVELOPMENT MANAGER Bry Choudhury M.D. LAB BLOOD ADD-ON Final R esult Performing Organization Address City/[facility] Co de Phone Number [facility] 200 [place] [address], [facility] STMA [facility] 200 [place] [address] * (ABNORMAL) Basic Metabolic Panel (04/04/2024 4:22 AM SALES AND BUSINESS DEVELOPMENT MANAGER) [facility] Potassium, S 4.1 3.6 - 5.2 mmol/L 04/04/2024 5:47 AM SALES AND BUSINESS DEVELOPMENT MANAGER DTL Sodium, S 136 135 - 145 mmol/L 04/04/2024 5:47 AM SALES AND BUSINESS DEVELOPMENT MANAGER DTL Chloride, S 97(L) 98 - 107 mmol/L 04/04/2024 5:47 AM SALES AND BUSINESS DEVELOPMENT MANAGER DTL Bicarbonate, S 20(L) 22 - 29 mmol/L 04/04/2024 5:47 AM SALES AND BUSINESS DEVELOPMENT MANAGER DTL Anion Gap 19(H) 7 - 15 04/04/2024 5:47 AM SALES AND BUSINESS DEVELOPMENT MANAGER DTL BUN (Blood Urea Nitrogen), S 67(H) 8 - 24 mg/dL 04/04/2024 5:47 AM SALES AND BUSINESS DEVELOPMENT MANAGER DTL Creatinine 5.68(H) 0.74 - 1.35 mg/dL 04/04/2024 5:47 AM SALES AND BUSINESS DEVELOPMENT MANAGER DTL Estimated GFR (eGFR) <15(L) >=60 mL/min/BSA 04/04/2024 5:47 AM SALES AND BUSINESS DEVELOPMENT MANAGER DTL Comment: Estimated GFR calculated using the 2020 CKD_EPI creatinine equation. Calcium, Total, S 7.8(L) 8.8 - 10.2 mg/dL 04/04/2024 5:47 AM SALES AND BUSINESS DEVELOPMENT MANAGER DTL Glucose, S 172(H) 70 - 140 mg/dL 04/04/2024 5:47 AM SALES AND BUSINESS DEVELOPMENT MANAGER DTL Blood (Blood, Venous) 04/04/2024 4:22 AM SALES AND BUSINESS DEVELOPMENT MANAGER 04/04/2024 5:10 AM SALES AND BUSINESS DEVELOPMENT MANAGER us Theodore Crocker M.D. LAB BLOOD ADD-ON Final Res ult [address] [address], [facility] [place] [address] * (ABNORMAL) CBC without Differential (04/04/2024 4:22 AM SALES AND BUSINESS DEVELOPMENT MANAGER) Hemoglobin 10.5(L) 13.2 - 16.6 g/dL 04/04/2024 5:33 AM SALES AND BUSINESS DEVELOPMENT MANAGER DHPM Hematocrit 31.7(L) 38.3 - 48.6 % 04/04/2024 5:33 AM SALES AND BUSINESS DEVELOPMENT MANAGER DHPM Erythrocytes 3.09(L) 4.35 - 5.65 x10(12)/L 04/04/2024 5:33 AM SALES AND BUSINESS DEVELOPMENT MANAGER DHPM MCV 102.6(H) 78.2 - 97.9 fL 04/04/2024 5:33 AM SALES AND BUSINESS DEVELOPMENT MANAGER DHPM RBC Distrib Width 14.6(H) 11.8 - 14.5 % 04/04/2024 5:33 AM SALES AND BUSINESS DEVELOPMENT MANAGER [facility] Platelet Count 236 135 - 317 x10(9)/L 04/04/2024 5:33 AM SALES AND BUSINESS DEVELOPMENT MANAGER [facility] Leukocytes 9.4 3.4 - 9.6 x10(9)/L 04/04/2024 5:33 AM SALES AND BUSINESS DEVELOPMENT MANAGER [facility] Blood (Blood, Venous) 04/04/2024 4:22 AM SALES AND BUSINESS DEVELOPMENT MANAGER 04/04/2024 4:58 AM SALES AND BUSINESS DEVELOPMENT MANAGER Theodore Crocker M.D. LAB BLOOD ADD-ON Final Res ult [facility] 200 [place] [address], [facility] 200 [place] [address] * (ABNORMAL) Troponin T, 6h, 5th Gen (04/04/2024 12:10 AM SALES AND BUSINESS DEVELOPMENT MANAGER) Troponin T, 6 hr, 5th gen 158(H) <=15 ng/L 04/04/2024 12:36 AM SALES AND BUSINESS DEVELOPMENT MANAGER STMA Comment:Consider acute myoca rdial injury 6H Delta % 10 % 04/04/2024 12:36 AM SALES AND BUSINESS DEVELOPMENT MANAGER STMA 6H Delta Interp Not Changing 04/04/2024 12:36 AM SALES AND BUSINESS DEVELOPMENT MANAGER [facility] Blood 04/04/2024 12:1 0 AM SALES AND BUSINESS DEVELOPMENT MANAGER 04/04/2024 12:17 AM SALES AND BUSINESS DEVELOPMENT MANAGER Theodore Crocker M.D. LAB BLOOD TROPONIN Final R esult [facility] [address] [place] [address], [facility] STMA [facility] 200 [place] [address] * (ABNORMAL) Troponin T, 2 Hour with 6 Hour Reflex, 5th Gen (04/03/2024 8:18 PM SALES AND BUSINESS DEVELOPMENT MANAGER) Troponin T, 2 hr, 5th gen 135(H) <=15 ng/L 04/03/2024 8:51 PM SALES AND BUSINESS DEVELOPMENT MANAGER [facility] Comment:Consider acute myoca rdial injury 2H Delta % -6 % 04/03/2024 8:51 PM SALES AND BUSINESS DEVELOPMENT MANAGER [facility] Comment:6 hour collection pe nding. 2H Delta Interp Not Changing 04/03/2024 8:51 PM SALES AND BUSINESS DEVELOPMENT MANAGER [facility] Blood 04/03/2024 8:18 PM SALES AND BUSINESS DEVELOPMENT MANAGER 04/03/2024 8:27 PM SALES AND BUSINESS DEVELOPMENT MANAGER us Theodore Crocker M.D. LAB BLOOD TROPONIN Final R esult Performing Organization Address [facility] Co de Phone Number [facility] [address] [place] [address] * (ABNORMAL) Troponin T, Baseline with 2 Hour/6 Hour Reflex Biomarker Panel (04/03/2024 6:04 PM SALES AND BUSINESS DEVELOPMENT MANAGER) Troponin T, Baseline, 5th gen 143(H) <=15 ng/L 04/03/2024 6:42 PM SALES AND BUSINESS DEVELOPMENT MANAGER [facility] Comment:Consider acute myoca rdial injury Blood (Blood, Venous) 04/03/2024 6:04 PM SALES AND BUSINESS DEVELOPMENT MANAGER 04/03/2024 6:14 PM SALES AND BUSINESS DEVELOPMENT MANAGER us Theodore Crocker M.D. LAB BLOOD TROPONIN Final R esult Performing Organization Address [facility] Co de Phone Number [facility] [address] [place] [address], [facility] [address] [place] [address] * (ABNORMAL) Phosphorus Inorganic (04/03/2024 6:04 PM SALES AND BUSINESS DEVELOPMENT MANAGER) Phosphorus (Inorganic), P 7.6(H) 2.5 - 4.5 mg/dL 04/03/2024 8:26 PM SALES AND BUSINESS DEVELOPMENT MANAGER DTL Blood (Blood, Venous) 04/03/2024 6:04 PM SALES AND BUSINESS DEVELOPMENT MANAGER 04/03/2024 6:14 PM SALES AND BUSINESS DEVELOPMENT MANAGER us Theodore Crocker M.D. LAB BLOOD ADD-ON Final Res ult Performing Organization Address [facility] Co de Phone Number [facility] [address] [place] [address], [facility] DTL [facility] [address] [place] [address] * Magnesium (04/03/2024 6:04 PM SALES AND BUSINESS DEVELOPMENT MANAGER) Pathologist [facility] Magnesium, P 1.9 1.7 - 2.3 mg/dL 04/03/2024 6:33 PM SALES AND BUSINESS DEVELOPMENT MANAGER [facility] Blood (Blood, Venous) 04/03/2024 6:04 PM SALES AND BUSINESS DEVELOPMENT MANAGER 04/03/2024 6:14 PM SALES AND BUSINESS DEVELOPMENT MANAGER us Theodore Crocker M.D. LAB BLOOD ADD-ON Final Res ult Performing Organization Address [facility] Co de Phone Number [facility] [address] [place] [address], [facility] STMA [facility] [address] [place] [address] * (ABNORMAL) Basic Metabolic Panel (04/03/2024 6:04 PM SALES AND BUSINESS DEVELOPMENT MANAGER) Potassium, P 4.6 3.6 - 5.2 mmol/L 04/03/2024 6:33 PM SALES AND BUSINESS DEVELOPMENT MANAGER [facility] Sodium, P 134(L) 135 - 145 mmol/L 04/03/2024 6:33 PM SALES AND BUSINESS DEVELOPMENT MANAGER [facility] Chloride, P 95(L) 98 - 107 mmol/L 04/03/2024 6:33 PM SALES AND BUSINESS DEVELOPMENT MANAGER [facility] Bicarbonate, P 21(L) 22 - 29 mmol/L 04/03/2024 6:33 PM SALES AND BUSINESS DEVELOPMENT MANAGER [facility] Anion Gap, P 18(H) 7 - 15 04/03/2024 6:33 PM SALES AND BUSINESS DEVELOPMENT MANAGER STMA BUN (Blood Urea Nitrogen), P 75(H) 8 - 24 mg/dL 04/03/2024 6:33 PM SALES AND BUSINESS DEVELOPMENT MANAGER STMA Creatinine 5.53(H) 0.74 - 1.35 mg/dL 04/03/2024 6:33 PM SALES AND BUSINESS DEVELOPMENT MANAGER STMA Estimated GFR (eGFR) <15(L) >=60 mL/min/BSA 04/03/2024 6:33 PM SALES AND BUSINESS DEVELOPMENT MANAGER STMA Comment: Estimated GFR calculated using the 2020 CKD_EPI creatinine equation. Calcium, Total, P 8.3(L) 8.8 - 10.2 mg/dL 04/03/2024 6:33 PM SALES AND BUSINESS DEVELOPMENT MANAGER STMA Glucose, P 135 70 - 140 mg/dL 04/03/2024 6:33 PM SALES AND BUSINESS DEVELOPMENT MANAGER STMA Blood (Blood, Venous) 04/03/2024 6:04 PM SALES AND BUSINESS DEVELOPMENT MANAGER 04/03/2024 6:14 PM SALES AND BUSINESS DEVELOPMENT MANAGER us Theodore Crocker M.D. LAB BLOOD ADD-ON Final Res ult [facility] [address] [place] [address], [facility] [address] [place] [address] * (ABNORMAL) CBC with Differential, Blood (04/03/2024 6:04 PM SALES AND BUSINESS DEVELOPMENT MANAGER) Hemoglobin 10.7(L) 13.2 - 16.6 g/dL 04/03/2024 6:18 PM SALES AND BUSINESS DEVELOPMENT MANAGER STMA Hematocrit 32.9(L) 38.3 - 48.6 % 04/03/2024 6:18 PM SALES AND BUSINESS DEVELOPMENT MANAGER STMA Erythrocytes 3.19(L) 4.35 - 5.65 x10(12)/L 04/03/2024 6:18 PM SALES AND BUSINESS DEVELOPMENT MANAGER STMA MCV 103.1(H) 78.2 - 97.9 fL 04/03/2024 6:18 PM SALES AND BUSINESS DEVELOPMENT MANAGER STMA RBC Distrib Width 14.6(H) 11.8 - 14.5 % 04/03/2024 6:18 PM SALES AND BUSINESS DEVELOPMENT MANAGER STMA Platelet Count 249 135 - 317 x10(9)/L 04/03/2024 6:18 PM SALES AND BUSINESS DEVELOPMENT MANAGER STMA Leukocytes 12.0(H) 3.4 - 9.6 x10(9)/L 04/03/2024 6:18 PM SALES AND BUSINESS DEVELOPMENT MANAGER STMA Neutrophils 10.34(H) 1.56 - 6.45 x10(9)/L 04/03/2024 6:18 PM SALES AND BUSINESS DEVELOPMENT MANAGER DHPM Lymphocytes 0.75(L) 0.95 - 3.07 x10(9)/L 04/03/2024 6:18 PM SALES AND BUSINESS DEVELOPMENT MANAGER STMA Monocytes 0.49 0.26 - 0.81 x10(9)/L 04/03/2024 6:18 PM SALES AND BUSINESS DEVELOPMENT MANAGER STMA Eosinophils 0.35 0.03 - 0.48 x10(9)/L 04/03/2024 6:18 PM SALES AND BUSINESS DEVELOPMENT MANAGER STMA Basophils 0.04 0.01 - 0.08 x10(9)/L 04/03/2024 6:18 PM SALES AND BUSINESS DEVELOPMENT MANAGER STMA Blood (Blood, Venous) 04/03/2024 6:04 PM SALES AND BUSINESS DEVELOPMENT MANAGER 04/03/2024 6:14 PM SALES AND BUSINESS DEVELOPMENT MANAGER Theodore Crocker M.D. LAB BLOOD ADD-ON Final Res ult [facility] [address] [place] [address], [facility] STMA [facility] [address] [place] [address] DHPM [facility] [address] [place] [address] * IR IMAGING (04/03/2024 5:17 PM SALES AND BUSINESS DEVELOPMENT MANAGER) Anatomical Region Laterality Modality N/A Other Narrative 04/04/2024 1:17 PM SALES AND BUSINESS DEVELOPMENT MANAGER Performed by surgeon - see Op Note for result. Kemar Reyes IMG IR PROCEDURES Final Res ult * DX Chest Portable 1 View (04/03/2024 5:11 PM SALES AND BUSINESS DEVELOPMENT MANAGER) Anatomical Region Laterality Modality Chest, Thoracic RST LOS, Tho racic ARZ LOS, Thoracic FLA LOS N/A Digital Radiography Impressions 04/03/2024 5:25 PM SALES AND BUSINESS DEVELOPMENT MANAGER Since 11/17/2022, new suspected diffuse interstitial pulmonary edema throughout both lungs. Probable trace right pleural effusion. Low lung volumes and lordotic positioning accentuate the cardiac silhouette and pulmonary vascularity. Otherwise no change. Aortic calcification. Degenerative changes of the spine. Narrative 04/03/2024 5:25 PM SALES AND BUSINESS DEVELOPMENT MANAGER EXAM: DX CHEST PORTABLE 1 VIEW Procedure [...] * ECG 12 Lead (04/03/2024 4:55 PM SALES AND BUSINESS DEVELOPMENT MANAGER) Ventricular Rate ECG/Min 95 BPM MUSE LA Interval 134 ms MUSE QRSD Interval 134 ms MUSE QT Interval 396 ms MUSE QTC Interval 497 ms MUSE P [place] 69 degrees MUSE R [place] -25 degrees MUSE T Wave [place] 75 degrees MUSE 04/03/2024 4:55 PM SALES AND BUSINESS DEVELOPMENT MANAGER 04/03/2024 5:18 PM SALES AND BUSINESS DEVELOPMENT MANAGER Impressions MUSE - 04/03/2024 5:18 PM SALES AND BUSINESS DEVELOPMENT MANAGER Normal sinus rhythm Right bundle branch block with secondary ST-T abnormalities When compared with ECG of 05-Mar-2024 11:03, No significant change was found Reviewed by JUAREZ Bingham Narrative Procedure Note Albino Gutiererz M.D. - 04/03/2024 IMPRESSION: Normal sinus rhythm Right bundle branch block with secondary ST-T abnormalities When compared with ECG of 05-Mar-2024 11:03, No significant change was found Reviewed by JUAREZ Bingham us Theodore Crocker M.D. ECG ORDERABLES Final Resu lt MUSE NA * (ABNORMAL) ACT (Activated Clotting Time), POCT (04/03/2024 4:43 PM SALES AND BUSINESS DEVELOPMENT MANAGER) Activated Clotting Time, POCT 166(H) 84 - 139 sec 04/03/2024 4:44 PM SALES AND BUSINESS DEVELOPMENT MANAGER PCSM Blood 04/03/2024 4:43 PM SALES AND BUSINESS DEVELOPMENT MANAGER 04/03/2024 4:45 PM SALES AND BUSINESS DEVELOPMENT MANAGER us Unknown Provider LAB POCT ORDERABLES - DEVICE Fi nal Result Performing Organization Address [facility] Co de Phone Number [facility] [address] [place] [address], [facility] [address] [place] [address] * (ABNORMAL) Hemoglobin (HGB), POCT (04/03/2024 4:40 PM SALES AND BUSINESS DEVELOPMENT MANAGER) [facility] Hemoglobin, POCT, B 10.1(L) 13.2 - 16.6 g/dL 04/03/2024 4:45 PM SALES AND BUSINESS DEVELOPMENT MANAGER PCSM Blood 04/03/2024 4:40 PM SALES AND BUSINESS DEVELOPMENT MANAGER 04/03/2024 4:45 PM SALES AND BUSINESS DEVELOPMENT MANAGER us Unknown Provider LAB POCT ORDERABLES - DEVICE Fi nal Result Performing Organization Address [facility] Co de Phone Number [facility] [address] [place] [address], [facility] POC [address] [place] [address] * (ABNORMAL) ACT (Activated Clotting Time), POCT (04/03/2024 3:20 PM SALES AND BUSINESS DEVELOPMENT MANAGER) [facility] Activated Clotting Time, POCT 319(H) 84 - 139 sec 04/03/2024 3:21 PM SALES AND BUSINESS DEVELOPMENT MANAGER PCSM Blood 04/03/2024 3:20 PM SALES AND BUSINESS DEVELOPMENT MANAGER 04/03/2024 3:21 PM SALES AND BUSINESS DEVELOPMENT MANAGER us Unknown Provider LAB POCT ORDERABLES - DEVICE Fi nal Result Performing Organization Address [facility] Co de Phone Number [facility] [address] [place] [address], [facility] POC [address] [place] [address] * (ABNORMAL) Basic Metabolic Panel (04/03/2024 1:19 PM SALES AND BUSINESS DEVELOPMENT MANAGER) [facility] Potassium, P 4.4 3.6 - 5.2 mmol/L 04/03/2024 1:41 PM SALES AND BUSINESS DEVELOPMENT MANAGER STMA Sodium, P 133(L) 135 - 145 mmol/L 04/03/2024 1:41 PM SALES AND BUSINESS DEVELOPMENT MANAGER STMA Chloride, P 93(L) 98 - 107 mmol/L 04/03/2024 1:41 PM SALES AND BUSINESS DEVELOPMENT MANAGER STMA Bicarbonate, P 21(L) 22 - 29 mmol/L 04/03/2024 1:41 PM SALES AND BUSINESS DEVELOPMENT MANAGER STMA Anion Gap, P 19(H) 7 - 15 04/03/2024 1:41 PM SALES AND BUSINESS DEVELOPMENT MANAGER STMA BUN (Blood Urea Nitrogen), P 72(H) 8 - 24 mg/dL 04/03/2024 1:41 PM SALES AND BUSINESS DEVELOPMENT MANAGER STMA Creatinine 5.53(H) 0.74 - 1.35 mg/dL 04/03/2024 1:41 PM SALES AND BUSINESS DEVELOPMENT MANAGER STMA Estimated GFR (eGFR) <15(L) >=60 mL/min/BSA 04/03/2024 1:41 PM SALES AND BUSINESS DEVELOPMENT MANAGER STMA Comment: Estimated GFR calculated using the 2020 CKD_EPI creatinine equation. Calcium, Total, P 8.5(L) 8.8 - 10.2 mg/dL 04/03/2024 1:41 PM SALES AND BUSINESS DEVELOPMENT MANAGER STMA Glucose, P 136 70 - 140 mg/dL 04/03/2024 1:41 PM SALES AND BUSINESS DEVELOPMENT MANAGER STMA Blood (Blood, Venous) 04/03/2024 1:19 PM SALES AND BUSINESS DEVELOPMENT MANAGER 04/03/2024 1:24 PM SALES AND BUSINESS DEVELOPMENT MANAGER Vida Rodriguez M.D., Ph.D. LAB BLOOD ADD-ON Final Result [facility] [address] [place] [address], [facility] [address] [place] [address] * (ABNORMAL) Hemoglobin A1c (04/03/2024 1:19 PM SALES AND BUSINESS DEVELOPMENT MANAGER) Hemoglobin A1c, B 7.0(H) 4.0 - 5.6 % 04/03/2024 2:34 PM SALES AND BUSINESS DEVELOPMENT MANAGER DTL Comment: Hemoglobin A1c values greater than or equal to 6.5 percent are diagnostic for diabetes mellitus. Diagnosis should be confirmed by repeat testing. In diabetic patients, HbA1c goals should be discussed with healthcare provider. Blood (Blood, Venous) 04/03/2024 1:19 PM SALES AND BUSINESS DEVELOPMENT MANAGER 04/03/2024 2:17 PM SALES AND BUSINESS DEVELOPMENT MANAGER Cristal Pfeiffer D.O. LAB BLOOD ADD-ON Final Result Performing Organization Address City/[facility]/ZIP Co de Phone Number [facility] [address] DTL [facility] [address] [place] [address] * Patient Status (04/03/2024 1:18 PM SALES AND BUSINESS DEVELOPMENT MANAGER) FIO2 0.21 0.21=AIR 04/03/2024 1:24 PM SALES AND BUSINESS DEVELOPMENT MANAGER STMA Spont. breaths/min 20 04/03/2024 1:24 PM SALES AND BUSINESS DEVELOPMENT MANAGER STMA Blood 04/03/2024 1:18 PM SALES AND BUSINESS DEVELOPMENT MANAGER 04/03/2024 1:24 PM SALES AND BUSINESS DEVELOPMENT MANAGER Stacy Guerrero APRN, CRNA, D.N.P. LAB BLO OD NON ADD-ON Final Result Performing Organization Address [facility] Co de Phone Number [facility] [address] [place] [address] * Lactate, Venous, Blood (04/03/2024 1:18 PM SALES AND BUSINESS DEVELOPMENT MANAGER) Lactate, Venous, B 1.5 0.5 - 2.2 mmol/L 04/03/2024 1:50 PM SALES AND BUSINESS DEVELOPMENT MANAGER STMA Blood (Blood, Venous) 04/03/2024 1:18 PM SALES AND BUSINESS DEVELOPMENT MANAGER 04/03/2024 1:24 PM SALES AND BUSINESS DEVELOPMENT MANAGER Stacy Guerrero APRN, CRNA, D.N.P. LAB BLO OD ADD-ON Final Result Performing Organization Address City/[facility]/ZIP Co de Phone Number [facility] [address] [place] [address] [place] [address] * Glucose, Venous, Blood (04/03/2024 1:18 PM SALES AND BUSINESS DEVELOPMENT MANAGER) Glucose, Venous, B 138 70 - 140 mg/dL 04/03/2024 1:50 PM SALES AND BUSINESS DEVELOPMENT MANAGER STMA Blood (Blood, Venous) 04/03/2024 1:18 PM SALES AND BUSINESS DEVELOPMENT MANAGER 04/03/2024 1:24 PM SALES AND BUSINESS DEVELOPMENT MANAGER Stacy Guerrero APRN, CRNA, D.N.P. LAB BLO OD ADD-ON Final Result Performing Organization Address City/[facility]/ZIP Co de Phone Number [facility] [address] [place] [address], [facility] [address] [place] [address] * Potassium, Venous, Blood (04/03/2024 1:18 PM SALES AND BUSINESS DEVELOPMENT MANAGER) Potassium, Venous, B 4.3 3.6 - 5.2 mmol/L 04/03/2024 1:54 PM SALES AND BUSINESS DEVELOPMENT MANAGER STMA Blood (Blood, Venous) 04/03/2024 1:18 PM SALES AND BUSINESS DEVELOPMENT MANAGER 04/03/2024 1:24 PM SALES AND BUSINESS DEVELOPMENT MANAGER Stacy Guerrero APRN, CRNA, D.N.P. LAB BLO OD NON ADD-ON Final Result [facility] [address] [place] [address], [facility] [address] [place] [address] * Sodium, Venous, Blood (04/03/2024 1:18 PM SALES AND BUSINESS DEVELOPMENT MANAGER) Sodium, Venous, B 135 135 - 145 mmol/L 04/03/2024 1:50 PM SALES AND BUSINESS DEVELOPMENT MANAGER STMA Blood (Blood, Venous) 04/03/2024 1:18 PM SALES AND BUSINESS DEVELOPMENT MANAGER 04/03/2024 1:24 PM SALES AND BUSINESS DEVELOPMENT MANAGER Stacy Guerrero APRN, CRNA, D.N.P. LAB BLO OD ADD-ON Final Result Performing Organization Address [facility] Co de Phone Number [facility] [address] [place] [address] * Calcium, Ionized, Venous, Blood (04/03/2024 1:18 PM SALES AND BUSINESS DEVELOPMENT MANAGER) Calcium, Ionized, Venous, B 4.67 4.65 - 5.30 mg/dL 04/03/2024 1:54 PM SALES AND BUSINESS DEVELOPMENT MANAGER STMA Blood (Blood, Venous) 04/03/2024 1:18 PM SALES AND BUSINESS DEVELOPMENT MANAGER 04/03/2024 1:24 PM SALES AND BUSINESS DEVELOPMENT MANAGER Stacy Guerrero APRN, CRNA, D.N.P. LAB BLO OD NON ADD-ON Final Result Performing Organization Address [facility] Co de Phone Number [facility] [address] [place] [address] * (ABNORMAL) Blood Gas with Coox, Venous (04/03/2024 1:18 PM SALES AND BUSINESS DEVELOPMENT MANAGER) pO2, Venous, B 50 Not applicable mm Hg 04/03/2024 1:26 PM SALES AND BUSINESS DEVELOPMENT MANAGER STMA pCO2, Venous, B 44 41 - 51 mm Hg 04/03/2024 1:26 PM SALES AND BUSINESS DEVELOPMENT MANAGER STMA pH, Venous, B 7.32 7.32 - 7.43 pH 024 1:26 PM SALES AND BUSINESS DEVELOPMENT MANAGER STMA Base Excess, Venous, B -4 Not applicable mmol/L 04/03/2024 1:26 PM SALES AND BUSINESS DEVELOPMENT MANAGER STMA HCO3, Venous, B 22 Not applicable mmol/L 04/03/2024 1:26 PM SALES AND BUSINESS DEVELOPMENT MANAGER STMA Hemoglobin, Venous, B 11.4(L) 13.2 - 16.6 g/dL 04/03/2024 1:26 PM SALES AND BUSINESS DEVELOPMENT MANAGER STMA O2Hb, Venous, B 75.2 Not applicable % 04/03/2024 1:26 PM SALES AND BUSINESS DEVELOPMENT MANAGER STMA COHb, Venous, B <1.0 <3.0 % 04/03/2024 1:26 PM SALES AND BUSINESS DEVELOPMENT MANAGER STMA MetHb, Venous, B 2.4(H) <1.5 % 04/03/2024 1:26 PM SALES AND BUSINESS DEVELOPMENT MANAGER STMA CtO2, Venous, B 12.1 Not Applicable vol % 04/03/2024 1:26 PM SALES AND BUSINESS DEVELOPMENT MANAGER STMA Sample Site, Venous, B Venipunct 04/03/2024 1:24 PM SALES AND BUSINESS DEVELOPMENT MANAGER STMA Blood (Blood, Venous) 04/03/2024 1:18 PM SALES AND BUSINESS DEVELOPMENT MANAGER 04/03/2024 1:24 PM SALES AND BUSINESS DEVELOPMENT MANAGER us Stacy Guerrero APRN, CRNA, D.N.P. LAB BLO OD NON ADD-ON Final Result Performing Organization Address [facility]/ZIP Co de Phone Number [facility] [address] [place] [address], [facility] STMA [facility] [address] [place] [address] * Glucose, POCT (04/03/2024 1:13 PM SALES AND BUSINESS DEVELOPMENT MANAGER) Glucose, POCT, B 133 70 - 140 mg/dL 04/03/2024 1:16 PM SALES AND BUSINESS DEVELOPMENT MANAGER PCLX Comment: Glucose results collected from venous catheters may be falsely elevated. Site Venline 04/03/2024 1:16 PM SALES AND BUSINESS DEVELOPMENT MANAGER PCLX Blood 04/03/2024 1:13 PM SALES AND BUSINESS DEVELOPMENT MANAGER 04/03/2024 1:16 PM SALES AND BUSINESS DEVELOPMENT MANAGER us Unknown Provider LAB POCT ORDERABLES-MANUAL Mary l Result Performing Organization Address City/[facility]/ZIP Co de Phone Number POC [facility] [address] [place] [address], [facility] PCLX [facility] POC [address] [place] [address] * Misc Research, Blood (04/03/2024 11:20 AM SALES AND BUSINESS DEVELOPMENT MANAGER) Number of Specimens 5 04/03/2024 11:20 AM SALES AND BUSINESS DEVELOPMENT MANAGER HSS Blood (Blood, Venous) 04/03/2024 11:20 AM SALES AND BUSINESS DEVELOPMENT MANAGER 04/03/2024 11:20 AM SALES AND BUSINESS DEVELOPMENT MANAGER Kemar Reyes LAB RESEARCH NO RESULT ROUT ING Final Result [facility] [address] [place] [address], [facility] [address] [place] [address] documented in this encounter Visit Diagnoses Diagnosis Peripheral Arterial Disease (HCC)- Primary 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 clopidogreL tablet 300 mg (Plavix) 300 mg, oral, Once, On Tue04/03/24 at 2100, For 1 dose, Plavix load after groin check and assuming no hemodynamic issues Given 04/03/2024 8:06 PM SALES AND BUSINESS DEVELOPMENT MANAGER 300 mg clopidogreL tablet 75 mg (Plavix) 75 mg, oral, Daily, First dose on 11/20/24 at 0900 Given 04/04/2024 11:01 AM SALES AND BUSINESS DEVELOPMENT MANAGER 75 mg dexAMETHasone injection 4 mg (Decadron) [...] dose, Intra-Op, *Flush/Irrigation use only* New Bag 04/03/2024 5:00 PM SALES AND BUSINESS DEVELOPMENT MANAGER 250 mL HYDROmorphone (PF) injection 0.4 mg (Dilaudid) [...] Tue04/03/24 at 1044, For 1 dose, Intra-Op Given 04/03/2024 5:01 PM SALES AND BUSINESS DEVELOPMENT MANAGER 217 mL labetaloL injection 10 mg 10 mg, intravenous, Once as needed, high blood pressure, per Provider instructions, Starting on Tue04/03/24 at 1744, For 1 dose, PACU (only), Follow institution's IV administration guidelines Given 04/03/2024 6:04 PM SALES AND BUSINESS DEVELOPMENT MANAGER 10 mg lidocaine-BUPivacaine 1%-0.25% infiltration injection 30 mL 30 mL, infiltration, Once in surgery, OR use only, Starting on Tue04/03/24 at 1044, For 1 dose, Intra-Op, Not for IV use Given 04/03/2024 2:14 PM SALES AND BUSINESS DEVELOPMENT MANAGER 20 mL metoprolol tablet 12.5 mg (Lopressor) [...] allergy to metoprolol. Given 04/04/2024 7:26 AM SALES AND BUSINESS DEVELOPMENT MANAGER 12.5 mg naloxone injection 0.2 mg (Narcan) [...] tolerating oral diet. Given 04/04/2024 4:35 PM SALES AND BUSINESS DEVELOPMENT MANAGER 10 mg Given 04/03/2024 8:06 PM SALES AND BUSINESS DEVELOPMENT MANAGER 10 mg oxyCODONE IR tablet 5 mg [...] tolerating oral diet. Given 04/04/2024 12:44 PM SALES AND BUSINESS DEVELOPMENT MANAGER 5 mg PD 1.5 % dextrose Low Ca 2.5 mEq/L- Mg 0.5 mEq/L 6,000 mL Dialysis solution intraperitoneal, Once, On Tue04/03/24 at 1800, For 1 dose, Scheduling/ADT, Refer to: Continuous Cycling Peritoneal Dialysis (CCPD) order for therapy details Given 04/03/2024 8:55 PM SALES AND BUSINESS DEVELOPMENT MANAGER PD 1.5 % dextrose Low Ca 2.5 mEq/L- Mg 0.5 mEq/L 6,000 mL Dialysis solution intraperitoneal, Once, On Tue04/03/24 at 1800, For 1 dose, Scheduling/ADT, Refer to: Continuous Cycling Peritoneal Dialysis (CCPD) order for therapy details Given 04/03/2024 8:55 PM SALES AND BUSINESS DEVELOPMENT MANAGER polyethylene glycol powder packet 1 packet (Miralax) [...] Recently Administered Medications Times are shown in SALES AND BUSINESS DEVELOPMENT MANAGER. Scheduled Medication Order 04/02/2024 04/03/2024 04/04/2024 acetaminophen tablet 1,000 mg (TylenoL) 1,000 mg, oral, 4 times daily, First dose on Tue04/03/24 at 2100 2006 (Given - Provider: Norman Hawkins RJerad) 0652 (JUL Hold - Provider: Transfer Provider, Automatic - Reason: Patient not available)0800 (Not Given - Provider: Kaylyn Fermin RJerad - Reason: Patient not available)1034 (JUL Unhold - Provider: Transfer Provider, Automatic)1245 (Given - Provider: Kaylyn Fermin RFeiNFei)1635 (Given - Provider: Natalie Estevez R.N., [facility]) ceFAZolin injection 2,000 mg (Ancef) (COMPLETED) 2,000 [...] 1410 (Given - Provider: Stacy Guerrero APRN, RN EMERGENCY, D.N.P.) ceFAZolin injection 2,000 mg (Ancef) (COMPLETED) [...] 0801 (Given - Provid er: Hui Smith RJerad) clopidogreL tablet 300 mg (Plavix) (COMPLETED) 300 mg, oral, Once, On Tue04/03/24 at 2100, For 1 dose, Plavix load after groin check and assuming no hemodynamic issues 2005 (Given - Provider: Norman Hawkins RFeiNFei) clopidogreL tablet 75 mg (Plavix) 75 mg, oral, Daily, First dose on Tue04/04/24 at 0900 0652 (JUL Hold - Provider: Transfer Provider, Automatic - Reason: Patient not available)1034 (JUL Unhold - Provider: Transfer Provider, Automatic)1101 (Given - Provider: Kaylyn Fermin RFeiNFei) PD 1.5 % dextrose Low Ca 2.5 mEq/L- Mg 0.5 mEq/L 6,000 mL Dialysis solution (COMPLETED) intraperitoneal, Once, On Tue04/03/24 at 1800, For 1 dose, Scheduling/ADT, Refer to: Continuous Cycling Peritoneal Dialysis (CCPD) order for therapy details 2054 (Given - Provider: Suzie NavarroS.NFei, R.N.) PD 1.5 % dextrose Low Ca 2.5 mEq/L- Mg 0.5 mEq/L 6,000 mL Dialysis solution (COMPLETED) intraperitoneal, Once, On Tue04/03/24 at 1800, For 1 dose, Scheduling/ADT, Refer to: Continuous Cycling Peritoneal Dialysis (CCPD) order for therapy details 2054 (Given - Provider: Suzie NavarroS.N., R.N.) sennosides-docusate sodium 8.6-50 mg per tablet 1 tablet (Senokot-S) 1 tablet, oral, 2 times daily, First dose on Tue04/04/24 at 0900, Initiate ONLY when taking oral food and fluids. Do not give if patient has diarrhea or ostomy. 0652 (JUL Hold - Provider: Transfer Provider, Automatic - Reason: Patient not available)0900 (Not Given - Provider: Kaylyn Fermin RJerad - Reason: Patient/family refused)1034 (JUL Unhold - Provider: Transfer Provider, Automatic) PRN Medication Order 04/02/2024 04/03/2024 04/04/2024 bisacodyL suppository 10 mg (Dulcolax) 10 mg, rectal, Daily PRN, constipation, Starting on Tue04/03/24 at 1843, Ordered sequence of administration: polyethylene glycol, then bisacodyl until BM achieved. 0652 ([facility] Hold - Provider: Transfer Provider, Automatic - Reason: Patient not available)1034 ([facility] Unhold - Provider: Transfer Provider, Automatic) dexAMETHasone injection 4 mg (Decadron) 4 mg, intravenous, Once as needed, nausea, vomiting, Starting on Tue04/03/24 at 1843, For 1 dose, Give only if NOT given during the pre or intraoperative period. If ondansetron ordered, give dexamethasone with first dose of ondansetron. 0652 ([facility] Hold - Provider: Transfer Provider, Automatic - Reason: Patient not available)1034 ([facility] Unhold - Provider: Transfer Provider, Automatic) fentaNYL injection 25 mcg (Sublimaze) 25 mcg, intravenous, Every 1 hour PRN, moderate pain or score 4-6 of 10, severe pain or score 7-10 of 10, if patient is unable to take oral analgesics, Starting on Tue04/03/24 at 1843, For 2 doses 0652 ([facility] Hold - Provider: Transfer Provider, Automatic - Reason: Patient not available)1034 ([facility] Unhold - Provider: Transfer Provider, Automatic) haloperidol [...] administration ondansetron then haloperidol then prochlorperazine) 0652 ([facility] Hold - Provider: Transfer Provider, Automatic - Reason: Patient not available)1034 ([facility] Unhold - Provider: Transfer Provider, Automatic) heparin [...] IV use 0903 (Given - Provid er: Shonda ReneeSFei - Comment: Left groin) metoprolol tablet 12.5 [...] Provider, Automatic - Reason: Patient not available)1034 ([facility] Unhold - Provider: Transfer Provider, Automatic) oxyCODONE [...] Provider, Automatic - Reason: Patient not available)1034 ([facility] Unhold - Provider: Transfer Provider, Automatic)1244 (See Alternative - Provider: Kaylyn Fermin R.N.)1635 (Given - Provider: Natalie Estevez R.N., [facility] oxyCODONE IR tablet 5 mg (Roxicodone)(Linked [...] Alternative - Provider: Norman Hawkins R.N.) 0652 ([facility] Hold - Provider: Transfer Provider, Automatic - Reason: Patient not available)1034 ([facility] CORPORATION Unhold - Provider: Transfer Provider, Automatic)1244 (Given - Provider: Kaylyn Fermin RJerad)1635 (See Alternative - Provider: Natalie Estevez R.N., [facility] polyethylene glycol powder packet 1 packet (Miralax) 1 packet, oral, Daily PRN, constipation, Starting on Tue04/03/24 at 1843, Ordered sequence of administration: polyethylene glycol, then bisacodyl until BM achieved. Avoid mixing with starch-based thickened liquids. 0652 ([facility] Hold - Provider: Transfer Provider, Automatic - Reason: Patient not available)1034 ([facility] Unhold - Provider: Transfer Provider, Automatic) prochlorperazine [...] documented as of this encounter Care Teams Dog Pound Attendant Relationship Specialty Start Date End Date Elsewhere, Pcp PCP - General Family Medicine 01/29/20 documented as of this encounter
--- OUTSIDE RECORDS SUMMARY | 2024-04-24 10:03 | XMS_ITS | Encounter Summary ---
Author Organization [facility] Address [address] [place] [address] Care Team Providers Care Morning News Anchor Name Role Phone Elsewhere, Pcp Primary Care [...] with IV Contrast Jayjay Pak, P.A.-CFei [address] [place] [address] Phone: tel: fax: [facility] Referral ID Status Reason Start Date Expiration Date Visits Re quested Visits Authorized [id number] Closed 03/07/2024 03/07/2025 1 1 Reason for Visit * MRI/CAT/PET Scan (Routine) - Closed Specialty Diagnoses / Procedures Referred By Contac hal Referred To Contact Radiology Diagnoses Follow Up Examination Status Post Surgery Peripheral Arterial Disease (HCC) Wound Foot Open Subsequent Left Wound Foot Open Subsequent Right Procedures CT Abd Pelvis Angio and Lower Ext Runoff Bilat with IV Contrast Jayjay Pak, PFeiA.-CeFi [address] [place] [address] Phone: tel: fax: [facility] Referral ID Status Reason Start Date Expiration Date Visits Re quested Visits Authorized [id number] Closed 03/07/2024 03/07/2025 1 1 Encounter Details Date Type Department Care Team (Latest Contact Info) Description 03/09/2024 2:02 PM CDT - 03/09/2024 6:24 PM CDT Hospital Encounter Department of Radiology, [facility], in [place], [place] [address] [place] [address] Jayjay Pak P.A.-C. [address] [place] [address] Follow Up Examination Status Post Surgery; Peripheral [...] How often do you attend amish or oriental orthodox serv ices? Never 03/24/2021 [...] Score 0 10/20/2018 [facility] - Occupational Stress Questionnaire [...] Sex Assigned at Male 03/24/2021 8:13 PM FUNERAL HOME LOCATION MANAGER Legal Sex Male 12:04 AM FUNERAL HOME LOCATION MANAGER Gender Identity Male 08/31/2019 2:40 PM [...] 09/25/2015 4 documented as of this encounter Nursing Notes * Tory Fulton RFeiN. - 03/09/2024 2:45 PM CDT Outpatient, keeping [...] st Contact Info) Description 05/10/2024 8:30 AM FUNERAL HOME LOCATION MANAGER Appointment Department of Radiology, [facility], in [place], [place] [address] [place] [phone] Kemar Velásquez M.B.B.S. [address] [place] [phone] Discharge Disposition: Home or Self Care 05/10/2024 9:30 AM FUNERAL HOME LOCATION MANAGER Appointment Department of Vascular Medicine in [place], [place] [address] [place] [phone] Kemar Velásquez M.B.B.S. [address] [place] [phone] Scheduled Orders Name Type Priority Associated Diagnoses Orde r Schedule Creatinine, POCT Point of Care Testing-Docked Device Routine Routine lab collecti on (next collection) for 1 Occurrences starting 03/09/2024 until 03/09/2024 documented as of this encounter Procedures Procedure [...] mural thrombus causing moderate stenosis (series 5, [id number]). Moderate to severe stenosis distal to the [...] in the mid left SFA (series 5, [id number]) over short segment the level of the [...] Creatinine, POCT (03/09/2024 3:06 PM CDT) Pathologist [facility] Creatinine, POCT, B 6.4(H) 0.7 - 1.4 mg/dL 03/09/2024 3:07 PM CDT PCDT Comment: ----ADDITIONAL INFORMATION---- Performed at the Point of Care Blood 03/09/2024 3:06 PM CDT 03/09/2024 3:08 PM CDT Unknown Provider LAB POCT ORDERABLES - DEVICE Fi nal Result POC [facility] [address] [place] [address], [facility] PCDT [facility] POC [address] [place] [address] * (ABNORMAL) Creatinine, POCT (03/09/2024 3:06 PM CDT) Pathologist [facility] Estimated GFR (eGFR), POCT <15(L) >=60 mL/min/BSA 03/09/2024 3:08 PM CDT PCMO Comment: Estimated GFR calculated using the 2021 CKD_EPI creatinine equation. Blood 03/09/2024 3:06 PM CDT 03/09/2024 3:08 PM CDT us Unknown Provider LAB POCT ORDERABLES - DEVICE Fi nal Result POC [facility] [address] [place] [address], [facility] POC [address] [place] [address] documented in this encounter Visit Diagnoses Diagnosis [...] documented as of this encounter Care Teams Morning News Anchor Relationship Specialty Start Date End Date Elsewhere, Pcp PCP - General Family Medicine 01/29/20 documented as of this encounter
--- OUTSIDE RECORDS SUMMARY | 2024-04-24 10:03 | XMS_ITS | Encounter Summary ---
Author Organization [facility] Address [address] [place] [address] Care Team Providers Care Certified Nurse Operating Room Name Role Phone Elsewhere, Pcp Primary Care Provider Unavailabl e Reason for Visit * Outpatient (Routine) - Closed Specialty Diagnoses / Procedures Referred By Robi t Referred To Contact Vascular Medicine Diagnoses Peripheral Arterial Disease (HCC) Wound Foot Open Subsequent Left Wound Foot Open Subsequent Right Jayjay Pak, Laine-Jennifer [address] [place] [phone] Phone: tel: fax: [facility] Referral ID Status Reason Start Date Expiration Date Visits Re quested Visits Authorized [id number] Closed 03/06/2024 09/05/2025 1 1 Encounter Details Date Type Department Care Team (Late st Contact Info) Description 03/12/2024 8:00 AM CDT Comprehensive Visit Department of Vascular Medicine in [place], [place] [address] [place] [phone] Kimmy Buckner APRN, C.N.P., D.N.P. [address] [place] [phone] Wound Foot Open Subsequent Right (Primary Dx); [...] drink = 0.6 oz pur e alcohol) [facility] Utilities Answer Date Recorded In the past [...] How often do you attend hoahaoism or rastafari serv ices? Never 03/24/2021 Do [...] [facility] 03/11/2024 Education Answer Date Recorded What is the highest level of school you have completed or the highest degree you have received? Some college, no degree 03/24/2021 Sex and Gender Information Value Date Recorded Sex Assigned at Male 03/24/2021 8:13 PM AUTO BODY WORKER Legal Sex Male 12:04 AM AUTO BODY WORKER Gender Identity Male 08/31/2019 2:40 PM CDT Sexual Orientation Straight 08/31/2019 2: 40 PM CDT documented as of this encounter Last Filed Vital Signs Vital Sign Reading Time Taken Comments Blood Pressure 231/79 03/12/2024 7:50 AM CDT Pulse 93 03/12/2024 7:50 AM CDT Temperature 36.5 C (97.7 F) 03/12/2024 7:50 AM CDT Respiratory Rate - - Oxygen [...] call to order at couple sets. [employer] [address] [place] [address], [address] [place] [address] Email: [email or web address] Discussed using wool socks (Petit wool socks) [...] This order can be filled at the [facility] or other durable medical equipment store. Directions to the [facility]: Take the elevator down to the Subway level. Go straight out of the elevator. The [facility] Store will be just past the [employer] on the left. [facility], Address: [address] [place] [address]. . The [facility] also has a Mail-Order Service available to most states. [phone] Nearly all these items can be found for purchase online (if insurance does not provide coverage foryour dressings). Most standard drug stores do not carry wound supplies. Durable medical supply stores do. We cannot renew a supply order for you after three months unless you are re-assessed by a wound care provider, so be sure to come to your next appointment. Tell the [facility] when your next appointment is. Your insurance will not pay for supplies unless you are seen at least every month. Edemawear can be found on [employer] Vashe can be found at the [facility], online on [employer], [employer], or [employer]. It is sometimes found in stores at [employer]. If you have any wound care questions or concerns please contact the Vascular Center at [phone]. If you need to cancel, reschedule, or schedule a wound care appointment please call [phone]. Provider Signature Kimmy Buckner APRN, Chay, Kylah.NFeiP. documented in this encounter Consult Notes * Kimmy Buckner APRN, Chay, Kylah.N.P. - 03/12/2024 8:00 AM CDT SUBJECTIVE REFERRAL INFORMATION Jayjay Pak P.AFei-C. [address] [place] [phone] CHIEF COMPLAINT/REASON FOR VISIT slow healing wounds [...] Mr. Walton has been followed in the [facility] for lower extremity [...] 2023/May 2023. He has been followed in [place]. They have been using Aquacel. He was [...] he feels unbalanced. Therefore, he was wearing [id number] shelves. He was heavily walking throughout the [...] surgery for evaluation/amputation. He follows at the [place] wound care clinic. In review of his [...] 15 minutes. Recommend use of edema wear ([place] stripe) and elevation as tolerated. Recommend offloading [...] visit: As needed. Desires to returned to [place] for ongoing wound care. He and family will let me know if he desires a return visit to [facility] vascular Wound [facility]. It was a [...] the Vascular Wound Center. Kimmy Buckner APRN, William.N.P., D.N.P. Total time spent with patient and reviewing clinical documents: 50 minutes. Time spent in counselin minutes. Billing does not reflect debridement time. documented in this encounter Plan of Treatment Upcoming Encounters Date Type Department Care Team (Late st Contact Info) Description 05/10/2024 8:30 AM AUTO BODY WORKER Appointment Department of Radiology, [facility], in [address] [phone] Kemar Velásquez M.B.B.S. [address] [place] [phone] Discharge Disposition: Home or Self Care 05/10/2024 9:30 AM AUTO BODY WORKER Appointment Department of Vascular Medicine in [address] [phone] Kemar Velásquez M.B.B.S. [address] [place] [phone] documented as of this encounter Visit Diagnoses Diagnosis Wound Foot Open Subsequent Right- Primary Peripheral Arterial Disease (HCC) Neuropathy Peripheral Wound Foot Open Subsequent Left Diabetes Mellitus Type 2 With Other Circulatory Complication (HCC) documented in this encounter Administered Medications [...] as of this encounter Care Teams Certified Nurse Operating Room Relationship Specialty Start Date End Date Elsewhere, Pcp PCP - General Family Medicine 01/29/20 documented as of this encounter
--- OUTSIDE RECORDS SUMMARY | 2024-04-24 10:03 | XMS_ITS | Encounter Summary ---
Author Organization [facility] Address [address] [place] [address] Care Team Providers Care Business Support Name Role Phone Elsewhere, Pcp Primary Care Provider Unavailabl e Reason for Referral * Outpatient (Routine) - Closed Specialty Diagnoses / Procedures Referred By Robi hong Referred To Contact Vascular Medicine Diagnoses Peripheral Arterial Disease (HCC) Wound Foot Open Subsequent Left Wound Foot Open Subsequent Right Jayjay Pak P.A.-C. 200 [place] [address] Phone: tel: fax: [facility] Referral ID Status Reason Start Date Expiration Date Visits Re quested Visits Authorized [id number] Closed 03/06/2024 09/05/2025 1 1 * Outpatient (Routine) - Closed Specialty Diagnoses / Procedures Referred By Contac t Referred To Contact Vascular Surgery Diagnoses Peripheral Arterial Disease (HCC) Jayjay Pak P.A.-C. [address] [place] [phone] Phone: tel: fax: [facility] Referral ID Status Reason Start Date Expiration Date Visits Re quested Visits Authorized [id number] Closed 03/06/2024 09/05/2025 1 1 Encounter Details Date Type Department Care Team (Late st Contact Info) Description 03/06/2024 Orders Only Department of Vascular Medicine in [place], [place] [address] [place] [address] Jayjay Pak P.A.-C. [address] [place] [address] Peripheral Arterial Disease (HCC) (Primary Dx); Wound Foot Open Subsequent Left; Wound Foot Open Subsequent Right Social History Tobacco Use Types Packs/Day Years Used Date Smoking Tobacco: Former Cigarettes 1 38.9 0 05/16/1983 - 04/2022 Smokeless Tobacco: Never Alcohol Use Standard Drinks/Week Comments Not Currently 0 (1 standard drink = 0.6 oz pur e alcohol) [facility] Utilities Answer Date Recorded In the past 12 months has e electric, gas, oil, or water [employer] threatened to shut off services in your [...] How often do you attend protestant or scientologist serv ices? Never 03/24/2021 Do [...] 0 10/20/2018 [facility] - Occupational Stress Questionnaire Answer [...] your living situation today? I have a [place] place to live 03/11/2024 Education Answer Date Recorded What is the highest level of school you have completed or the highest degree you have received? Some college, no degree 03/24/2021 Sex and Gender Information Value Date Recorded Sex Assigned at Male 03/24/2021 8:13 PM RECREATIONAL COUNSELOR Legal Sex Male 12:04 AM RECREATIONAL COUNSELOR Gender Identity Male 08/31/2019 2:40 PM CDT Sexual Orientation Straight 08/31/2019 2: 40 PM CDT documented as of this encounter Plan of Treatment Upcoming Encounters Date Type Department Care Team (Late st Contact Info) Description 05/10/2024 8:30 AM RECREATIONAL COUNSELOR Appointment Department of Radiology, [facility], in [place], [place] [address] [place] [phone] Kemar Velásquez M.B.B.S. [address] [place] [phone] Discharge Disposition: Home or Self Care 05/10/2024 9:30 AM RECREATIONAL COUNSELOR Appointment Department of Vascular Medicine in [place], [place] [address] [place] [phone] Kemar Velásquez M.B.B.S. [address] [place] [phone] Scheduled Referrals Name Type Priority Associated Diagnoses [...] as of this encounter Care Teams Business Support Relationship Specialty Start Date End Date Elsewhere, Pcp PCP - General Family Medicine 01/29/20 documented as of this encounter
--- OUTSIDE RECORDS SUMMARY | 2024-04-24 10:03 | XMS_ITS | Encounter Summary ---
Author Organization [facility] Address [address] [place] [address] Care Team Providers Care Insurance Clerk Name Role Phone Elsewhere, Pcp Primary [...] 0.6 oz pur e alcohol) [facility] Utilities Answer Date Recorded In the past 12 months has e [employer], gas, oil, or water [employer] threatened to shut off services in your [...] How often do you attend jain or restoration serv ices? Never 03/24/2021 Do [...] your living situation today? I have a [facility] place to live 03/11/2024 Education Answer Date Recorded What is the highest level of school you have completed or the highest degree you have received? Some college, no degree 03/24/2021 Sex and Gender Information Value Date Recorded Sex Assigned at Male 03/24/2021 8:13 PM BAKING POWDER MIXER Legal Sex Male 12:04 AM BAKING POWDER MIXER Gender Identity Male 08/31/2019 2:40 PM CDT Sexual Orientation Straight 08/31/2019 2: 40 PM CDT documented as of this encounter Plan of Treatment Upcoming Encounters Date Type Department Care Team (Late st Contact Info) Description 05/10/2024 8:30 AM BAKING POWDER MIXER Appointment Department of Radiology, [facility], in [place], [place] [address] [place] [address] Kemar Velásquez M.B.B.S. [address] [place] [phone] Discharge Disposition: Home or Self Care 05/10/2024 9:30 AM BAKING POWDER MIXER Appointment Department of Vascular Medicine in [place], [place] [address] [place] [phone] Kemar Velásquez M.B.B.S. [address] [place] [phone] documented as of this encounter Procedures Procedure [...] as of this encounter Care Teams Insurance Clerk Relationship Specialty Start Date End Date Elsewhere, Pcp PCP - General Family Medicine 01/29/20 documented as of this encounter
--- OUTSIDE RECORDS SUMMARY | 2024-04-24 10:03 | XMS_ITS | Encounter Summary ---
Author Organization [facility] Address [address] [place] [address] Care Team Providers Care Drier Operator Head Name Role Phone Elsewhere, Pcp Primary Care [...] = 0.6 oz pur e alcohol) [facility] Utilities Answer Date Recorded In the past 12 months has e [employer], gas, oil, or water Patient [employer] threatened to shut off services in your [...] How often do you attend catholic or mandaen serv ices? Never 03/24/2021 Do [...] your living situation today? I have a [facility] place to live 03/11/2024 Education Answer Date Recorded What is the highest level of school you have completed or the highest degree you have received? Some college, no degree 03/24/2021 Sex and Gender Information Value Date Recorded Sex Assigned at Male 03/24/2021 8:13 PM CHUCK TENDER Legal Sex Male 12:04 AM CHUCK TENDER Gender Identity Male 08/31/2019 2:40 PM CDT Sexual Orientation Straight 08/31/2019 2: 40 PM CDT documented as of this encounter Plan of Treatment Upcoming Encounters Date Type Department Care Team (Late st Contact Info) Description 05/10/2024 8:30 AM CHUCK TENDER Appointment Department of Radiology, [facility], in [place], [place] [address] [place] [address] Kemar Velásquez M.B.B.S. [address] [place] [phone] Discharge Disposition: Home or Self Care 05/10/2024 9:30 AM CHUCK TENDER Appointment Department of Vascular Medicine in [place], [place] [address] [place] [phone] Kemar Velásquez M.B.B.S. [address] [place] [phone] documented as of this encounter Procedures Procedure [...] documented as of this encounter Care Teams Drier Operator Head Relationship Specialty Start Date End Date Elsewhere, Pcp PCP - General Family Medicine 01/29/20 documented as of this encounter
--- OUTSIDE RECORDS SUMMARY | 2024-04-24 10:03 | XMS_ITS | Encounter Summary ---
Author Organization [facility] Address [address] [place] [address] Care Team Providers Care Final Rail Cutter Name Role Phone Elsewhere, Pcp Primary Care Provider Unavailabl e Encounter Details Date Type Department Care Team (Late st Contact Info) Description 03/13/2024 Documentation Division of Nephrology and Hypertension in [place], [place] [address] [place] [address] Haseeb Menon Jr., D.O. [address] [place] [address] Social History Tobacco Use Types Packs/Day Years Used Date Smoking Tobacco: Former Cigarettes 1 38.9 0 05/16/1983 - 04/2022 Smokeless Tobacco: Never Alcohol Use Standard Drinks/Week Comments Not Currently 0 (1 standard drink = 0.6 oz pur e alcohol) [facility] Utilities Answer Date Recorded In the past 12 months has [facility] [employer] gas, oil, or water [employer] threatened to shut off services in your [...] How often do you attend taoism or church serv ices? Never 03/24/2021 Do [...] PHQ-2 Score 0 10/20/2018 [facility] [place] [facility]at [facility] - Occupational Stress [...] Sex Assigned at Male 03/24/2021 8:13 PM STEEL CUTTER Legal Sex Male 12:04 AM STEEL CUTTER Gender Identity Male 08/31/2019 2:40 PM CDT Sexual Orientation Straight 08/31/2019 2: 40 PM CDT documented as of this encounter Progress Notes * Haseeb Menon Jr., D.O. - 03/13/2024 9:54 AM CDT Care coordination-monthly peritoneal dialysis visit Please see the [employer] logo application in the Care everywhere section of [...] st Contact Info) Description 05/10/2024 8:30 AM STEEL CUTTER Appointment Department of Radiology, [facility], in [address] [phone] Kemar Velásquez M.B.B.S. [address] [place] [phone] Discharge Disposition: Home or Self Care 05/10/2024 9:30 AM STEEL CUTTER Appointment Department of Vascular Medicine in [address] [phone] Kemar Velásquez M.B.B.S. [address] [place] [phone] documented as of this encounter Visit Diagnoses Not on filedocumented in this encounter Additional Health Concerns Assessment Noted Time PHQ-9 Depression Total Score: 3 01/04/20 18 10:38 AM CDT documented as of this encounter Care Teams Final Rail Cutter Relationship Specialty Start Date End Date Elsewhere, Pcp PCP - General Family Medicine 01/29/20 documented as of this encounter
--- OUTSIDE RECORDS SUMMARY | 2024-04-24 10:04 | XMS_ITS | Encounter Summary ---
Author Organization [facility] Address [address] [place] [address] Care Team Providers Care Practice Business Asst Name Role Phone Elsewhere, Pcp Primary Care Provider Unavailabl e Reason for Visit * Reason Comments Med Refill Encounter Details Date Type Department Care Team (Late st Contact Info) Description 02/23/2024 Refill Division of Nephrology and Hypertension in [place], [place] [address] [place] [address] Onesimo Rodriguez M.D. Med Refill Social History [...] How often do you attend latter-day or latter-day serv ices? Never 03/24/2021 Do [...] your living situation today? I have a [facility] place to live 10/26/2022 Education Answer Date Recorded What is the highest level of school you have completed or the highest degree you have received? Some college, no degree 03/24/2021 Sex and Gender Information Value Date Recorded Sex Assigned at Male 03/24/2021 8:13 PM TANNERY WORKER Legal Sex Male 12:04 AM TANNERY WORKER Gender Identity Male 08/31/2019 2:40 PM CDT Sexual Orientation Straight 08/31/2019 2: 40 PM CDT documented as of this encounter Miscellaneous Notes * Telephone Encounter - Haseeb Menon Jr., D.O. - 02/24/2024 5:42 PM CDT He is on PD. We have changed this to std phos binders! documented in this encounter Plan of Treatment Upcoming Encounters Date Type Department Care Team (Late st Contact Info) Description 05/10/2024 8:30 AM TANNERY WORKER Appointment Department of Radiology, [facility], in [place], [place] [address] [place] [address] Kemar Velásquez M.B.B.S. [address] [place] [address] Discharge Disposition: Home or Self Care 05/10/2024 9:30 AM TANNERY WORKER Appointment Department of Vascular Medicine in [place], [place] [address] [place] [address] Kemar Velásquez M.B.B.S. [address] [place] [address] documented as of this encounter Visit Diagnoses Not on filedocumented in this encounter Additional Health Concerns Assessment Noted Time PHQ-9 Depression Total Score: 3 01/04/20 18 10:38 AM CDT documented as of this encounter Care Teams Practice Business Asst Relationship Specialty Start Date End Date Elsewhere, Pcp PCP - General Family Medicine 01/29/20 documented as of this encounter
--- OUTSIDE RECORDS SUMMARY | 2024-04-24 10:04 | XMS_ITS | Encounter Summary ---
Author Organization [facility] Address [address] [place] [address] Care Team Providers Care Team Supervisor Name Role Phone Elsewhere, Pcp Primary Care Provider Unavailabl e Reason for Referral * Outpatient (Routine) - Closed Specialty Diagnoses / Procedures Referred By Robi hong Referred To Contact Diagnoses Follow Up Examination Status Post Surgery Peripheral Arterial Disease (HCC) Procedures US Aorta Iliac Arteries Bilateral with Doppler Jayjay Pak P.A.-C. [address] [place] [address] Phone: tel: fax: [facility] Referral ID Status Reason Start Date Expiration Date Visits Re quested Visits Authorized [id number] Closed 01/05/2024 01/04/2025 1 1 Reason for Visit * Outpatient (Routine) - Closed Specialty Diagnoses / Procedures Referred By Robi hong Referred To Contact Diagnoses Follow Up Examination Status Post Surgery Peripheral Arterial Disease (HCC) Procedures US Aorta Iliac Arteries Bilateral with Doppler Jayjay Pak P.A.-C. [address] [place] [address] Phone: tel: fax: [facility] Referral ID Status Reason Start Date Expiration Date Visits Re quested Visits Authorized [id number] Closed 01/05/2024 01/04/2025 1 1 Encounter Details Date Type Department Care Team (Latest Contact Info) Description 03/05/2024 11:19 AM CDT - 03/05/2024 11:59 PM CDT Hospital Encounter Department of Radiology, [facility], in [place], [place] [address] [place] [address] Jayjay Pak P.A.-C. [address] [place] [address] Follow Up Examination Status Post Surgery; Peripheral [...] often do you attend yazidism or anabaptist serv ices? Never 03/24/2021 Do [...] Answer Date Recorded PHQ-2 Score 0 10/20/2018 [facility] of Occupat ional Health - Occupational Stress [...] Sex Assigned at Male 03/24/2021 8:13 PM VIDEO GAME TESTER Legal Sex Male 12:04 AM VIDEO GAME TESTER Gender Identity Male 08/31/2019 2:40 PM [...] st Contact Info) Description 05/10/2024 8:30 AM VIDEO GAME TESTER Appointment Department of Radiology, [facility], in [place], [place] [address] [place] [address] Kemar Velásquez M.B.B.S. [address] [place] [address] Discharge Disposition: Home or Self Care 05/10/2024 9:30 AM VIDEO GAME TESTER Appointment Department of Vascular Medicine in [place], [place] [address] [place] [address] Kemar Velásquez M.B.B.S. [address] [place] [address] documented as of this encounter Procedures Procedure [...] on the left. 2. The previously seen pilot station right external iliac artery stenosis is not [...] visualized. Diffusely elevated Doppler velocities within the pilot station external iliac artery without obvious focal stenosis. [...] definitely visualized. Diffusely elevatedDoppler velocities within the pilot station external iliac artery without obviousfocal stenosis. LEFT: [...] stenoses on theleft. 2. The previously seen pilot station right external iliac artery stenosis is notdefinitely identified today. us Jayjay Pak P.A.-C. IMG US PROCEDURES Final Result documented in this encounter Visit Diagnoses Diagnosis Follow Up Examination Status Post Surgery Peripheral Arterial Disease (HCC) documented in this encounter Additional Health Concerns Assessment Noted Time PHQ-9 Depression Total Score: 3 01/04/20 18 10:38 AM CDT documented as of this encounter Care Teams Team Supervisor Relationship Specialty Start Date End Date Elsewhere, Pcp PCP - General Family Medicine 01/29/20 documented as of this encounter
--- OUTSIDE RECORDS SUMMARY | 2024-04-24 10:04 | XMS_ITS | Encounter Summary ---
Author Organization [facility] Address [address] [place] [address] Care Team Providers Care Nutritionist Public Health Name Role Phone Elsewhere, Pcp Primary [...] with IV Contrast Jayjay Pak, PFeiAFei-CFei [address] [place] [address] Phone: tel: fax: [facility] Referral ID Status Reason Start Date Expiration Date Visits Re quested Visits Authorized [id number] Closed 03/07/2024 03/07/2025 1 1 * MRI/CAT/PET Scan (Routine) - Closed Specialty Diagnoses / Procedures Referred By Contac t Referred To Contact Radiology Diagnoses Follow Up Examination Status Post Surgery Peripheral Arterial Disease (HCC) Wound Foot Open Subsequent Left Wound Foot Open Subsequent Right Procedures MR Foot Right without and with IV Contrast Jayjay Pak P.AFei-Jennifer [address] [place] [address] Phone: tel: fax: [facility] Referral ID Status Reason Start Date Expiration Date Visits Re quested Visits Authorized [id number] Closed 03/07/2024 03/07/2025 1 1 * Outpatient (Routine) - Closed Specialty Diagnoses / Procedures Referred By Robi hong Referred To Contact Diagnoses Peripheral Arterial Disease (HCC) Wound Foot Open Subsequent Left Wound Foot Open Subsequent Right Procedures DX Foot Bilateral 3+ Views Jayjay Pak P.A.-C. [address] [place] [phone] Phone: tel: fax: [facility] Referral ID Status Reason Start Date Expiration Date Visits Re quested Visits Authorized [id number] Closed 03/05/2024 03/05/2025 1 1 Reason for Visit * Outpatient (Routine) - Closed Specialty Diagnoses / Procedures Referred By Robi hong Referred To Contact Vascular Medicine Jayjay Pak P.A.-C. [address] [place] [address] Phone: tel: fax: [facility] Referral ID Status Reason Start Date Expiration Date Visits Re quested Visits Authorized [id number] Closed 01/05/2024 07/06/2025 1 1 Encounter Details Date Type Department Care Team (Late st Contact Info) Description 03/05/2024 3:00 PM CDT Office Visit Department of Vascular Medicine in [place], [place] [address] [place] [phone] Jayjay Pak P.A.-C. [address] [place] [phone] Follow Up Examination Status Post Surgery (Primary [...] often do you attend roman catholic or anabaptist serv ices? 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/2021 8:13 PM INTERPRETATIVE DANCER Legal Sex Male 12:04 AM INTERPRETATIVE DANCER Gender Identity Male 08/31/2019 2:40 PM CDT [...] on local pathology/cytology. He is on minocycline [facility]. The patient has had multiple interventions for [...] on the left. 2. The previously seen mary's igloo right external iliac artery stenosis is not definitely identified today. U/S: RIGHT: Patent superficial femoral artery stents. New stenoses within the stents and in the mary's igloo distal SFA below the stents. LEFT: Unchanged stenosis of the mary's igloo proximal superficial femoral artery. Patent mid SFA stents with new stenosis at the proximal end point. Worsening stenosis in the mary's igloo distal SFA. Similar stenoses in the popliteal [...] necessary, I will discuss with the patient's casino cage manager since he is on dialysis and coordinate accordingly. ADDENDUM: 03/08/2024: Outside x-rays have concern over osteomyelitis on the right. I discussed the case with vascular surgery and they would like a CTA with runoff and an MRI with gadolinium. I discussed these two tests with the patient's casino cage manager who felt that this would be safe [...] st Contact Info) Description 05/10/2024 8:30 AM INTERPRETATIVE DANCER Appointment Department of Radiology, [facility], in [place], [place] [address] [place] [address] Kemar Velásquez M.B.B.S. [address] [place] [address] Discharge Disposition: Home or Self Care 05/10/2024 9:30 AM INTERPRETATIVE DANCER Appointment Department of Vascular Medicine in [place], [place] [address] [place] [address] Kemar Velásquez M.B.B.S. [address] [place] [address] documented as of this encounter Results * [...] mural thrombus causing moderate stenosis (series 5, [id number]). Moderate to severe stenosis distal to the [...] in the mid left SFA (series 5, [id number]) over short segment the level of the [...] documented as of this encounter Care Teams Nutritionist Public Health Relationship Specialty Start Date End Date Elsewhere, Pcp PCP - General Family Medicine 01/29/20 documented as of this encounter
--- OUTSIDE RECORDS SUMMARY | 2024-04-24 10:04 | XMS_ITS | Encounter Summary ---
Author Organization [facility] Address [address] [place] [address] Care Team Providers Care Tool And Production Planner Name Role Phone Elsewhere, Pcp Primary Care Provider Unavailabl e Reason for Visit * Reason Comments Med Refill Encounter Details Date Type Department Care Team (Late st Contact Info) Description 02/11/2024 Refill Division of Nephrology and Hypertension in [place], [place] [address] [place] [address] Haseeb Menon Jr., D.O. [address] [place] [address] Med Refill Social History Tobacco Use Types [...] How often do you attend christianity or rastafari serv ices? Never 03/24/2021 Do [...] PHQ-2 Score 0 10/20/2018 [facility] - Occupational Stress Questionnaire Answer Date [...] Assigned at Male 03/24/2021 8:13 PM AGRICULTURAL ENGINEERING TECHNICIANS Legal Sex Male 12:04 AM AGRICULTURAL ENGINEERING TECHNICIANS Gender Identity Male 08/31/2019 2:40 PM CDT Sexual Orientation Straight 08/31/2019 2: 40 PM CDT documented as of this encounter Miscellaneous Notes * Telephone Encounter - Brandon Kaur R.N. - 02/20/2024 8:51 AM CDT discontinued documented in this encounter Plan of Treatment Upcoming Encounters Date Type Department Care Team (Late st Contact Info) Description 05/10/2024 8:30 AM AGRICULTURAL ENGINEERING TECHNICIANS Appointment Department of Radiology, [facility], in [place], [place] [address] [place] [address] Kemar Velásquez M.B.B.S. [address] [place] [address] Discharge Disposition: Home or Self Care 05/10/2024 9:30 AM AGRICULTURAL ENGINEERING TECHNICIANS Appointment Department of Vascular Medicine in [place], [place] [address] [place] [phone] Kemar Velásquez M.B.B.S. [address] [place] [address] documented as of this encounter Visit Diagnoses Not on filedocumented in this encounter Additional Health Concerns Assessment Noted Time PHQ-9 Depression Total Score: 3 01/04/20 18 10:38 AM CDT documented as of this encounter Care Teams Tool And Production Planner Relationship Specialty Start Date End Date Elsewhere, Pcp PCP - General Family Medicine 01/29/20 documented as of this encounter
--- OUTSIDE RECORDS SUMMARY | 2024-04-24 10:04 | XMS_ITS | Encounter Summary ---
Author Organization [facility] Address [address] [place] [address] Care Team Providers Care Supply Aide Name Role Phone Elsewhere, Pcp Primary Care Provider Unavailabl e Reason for Visit * Outpatient (Routine) - Closed Specialty Diagnoses / Procedures Referred By Robi t Referred To Contact Diagnoses Follow Up Examination Status Post Surgery Peripheral Arterial Disease (HCC) Procedures US Lower Extremity Arteries Bilateral US Lower Extremity Artery Graft Bilateral Jayjay Pak P.AFei-CFei [address] [place] [address] Phone: tel: fax: [facility] Referral ID Status Reason Start Date Expiration Date Visits Re quested Visits Authorized [id number] Closed 01/05/2024 01/04/2025 1 1 Encounter Details Date Type Department Care Team (Latest Contact Info) Description 03/05/2024 11:00 AM CDT - 03/05/2024 11:18 AM T Hospital Encounter Department of Radiology, [facility], in [place], [place] [address] [place] [address] Jayjay Pak PFeiAFei-CFei [address] [place] [phone] Follow Up Examination Status Post Surgery; Peripheral [...] How often do you attend tenriism or restorationism serv ices? 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/2021 8:13 PM INTERNATIONAL NURSE Legal Sex Male 12:04 AM INTERNATIONAL NURSE Gender Identity Male 08/31/2019 2:40 PM [...] meals. 540 capsule 3 06/17/2023 5 DULoxetine (Cymbalta) [address] capsule Take [...] 5 minocycline (MINOCIN,DYNACIN ) 100 mg capsule Take 100 mg by mouth daily. 01/14/2022 nortriptyline (PAMELOR) 50 mg capsule Take [...] st Contact Info) Description 05/10/2024 8:30 AM INTERNATIONAL NURSE Appointment Department of Radiology, [facility], in [place], [place] [address] [place] [phone] Kemar Velásquez M.B.B.S. [address] [place] [phone] Discharge Disposition: Home or Self Care 05/10/2024 9:30 AM INTERNATIONAL NURSE Appointment Department of Vascular Medicine in [place], [place] [address] [place] [phone] Kemar Velásquez M.B.B.S. [address] [place] [phone] documented as of this encounter Procedures Procedure [...] stenoses within the stents and in the tunica-biloxi distal SFA below the stents. LEFT: Unchanged stenosis of the tunica-biloxi proximal superficial femoral artery. Patent mid SFA stents with new stenosis at the proximal end point. Worsening stenosis in the tunica-biloxi distal SFA. Similar stenoses in the popliteal [...] femoral: Interval development of stenosis within the tunica-biloxi SFA below the stents. 451 cm/s today, [...] femoral: Focally elevated Doppler velocities within the tunica-biloxi distal SFA (128 cm/s today, previously 100 cm/s), consistent with stenosis. Popliteal: Focally elevated Doppler velocities (140 cm/s), consistent with stenosis.. Posterior tibial at the ankle: Focally elevated Doppler velocities in the tibioperoneal trunk (157 cm/s today, previously 369 cm/s), consistent with stenosis. Patent at the ankle with severely dampened Doppler waveforms. Dorsalis Pedis: Patent with severely dampened Doppler waveforms. MIIM RIGHT: Highest: 0.48 MIMI LEFT: Highest: 0.37 [...] New stenoses within thestents and in the tunica-biloxi distal SFA below the stents. LEFT: Unchanged stenosis of the tunica-biloxi proximal superficial femoralartery. Patent mid SFA stents with new stenosis at the proximal end point.Worsening stenosis in the tunica-biloxi distal SFA. Similar stenoses in thepopliteal artery [...] documented as of this encounter Care Teams Supply Aide Relationship Specialty Start Date End Date Elsewhere, Pcp PCP - General Family Medicine 01/29/20 documented as of this encounter
--- OUTSIDE RECORDS SUMMARY | 2024-04-24 10:04 | XMS_ITS | Encounter Summary ---
Author Organization [facility] Address [address] [place] [address] Care Team Providers Care Geological Specialist Name Role Phone Elsewhere, Pcp Primary Care Provider Unavailabl e Reason for Referral * Outpatient (Routine) - Closed Specialty Diagnoses / Procedures Referred By Branac t Referred To Contact Diagnoses Follow Up Examination Status Post Surgery Peripheral Arterial Disease (HCC) Procedures US Aorta Iliac Arteries Bilateral with Doppler Jayjay Pak P.A.-C. [address] [place] [address] Phone: tel: fax: [facility] Referral ID Status Reason Start Date Expiration Date Visits Re quested Visits Authorized [id number] Closed 01/05/2024 01/04/2025 1 1 * Outpatient (Routine) - Closed Specialty Diagnoses / Procedures Referred By Contac t Referred To Contact Diagnoses Follow Up Examination Status Post Surgery Peripheral Arterial Disease (HCC) Procedures ECG 12 Lead Jayjay Pak P.A.-C. [address] [place] [address] Phone: tel: fax: [facility] Referral ID Status Reason Start Date Expiration Date Visits Re quested Visits Authorized [id number] Closed 01/05/2024 01/04/2025 1 1 * Outpatient (Routine) - Closed Specialty Diagnoses / Procedures Referred By Robi hong Referred To Contact Vascular Medicine Jayjay Pak P.A.-C. [address] [place] [phone] Phone: tel: fax: [facility] Referral ID Status Reason Start Date Expiration Date Visits Re quested Visits Authorized [id number] Closed 01/05/2024 07/06/2025 1 1 Encounter Details Date Type Department Care Team (Late st Contact Info) Description 01/05/2024 Orders Only Department of Vascular Medicine in [place], [place] [address] [place] [phone] Jayjay Pak P.A.-C. [address] [place] [phone] Follow Up Examination Status Post Surgery (Primary [...] How often do you attend holiness or confucianist serv ices? Never 03/24/2021 Do [...] living situation today? I have a [facility] place to live 10/26/2022 Education Answer Date Recorded What is the highest level of school you have completed or the highest degree you have received? Some college, no degree 03/24/2021 Sex and Gender Information Value Date Recorded Sex Assigned at Male 03/24/2021 8:13 PM HOME CARE ASSISTANT Legal Sex Male 12:04 AM HOME CARE ASSISTANT Gender Identity Male 08/31/2019 2:40 PM CDT Sexual Orientation Straight 08/31/2019 2: 40 PM CDT documented as of this encounter Plan of Treatment Upcoming Encounters Date Type Department Care Team (Late st Contact Info) Description 05/10/2024 8:30 AM HOME CARE ASSISTANT Appointment Department of Radiology, [facility], in [place], [place] [address] [place] [address] Kemar Velásquez M.B.B.S. [address] [place] [phone] Discharge Disposition: Home or Self Care 05/10/2024 9:30 AM HOME CARE ASSISTANT Appointment Department of Vascular Medicine in [place], [place] [address] [place] [phone] Kemar Velásquez M.B.B.S. [address] [place] [phone] Scheduled Referrals Name Type Priority Associated Diagnoses [...] on the left. 2. The previously seen poarch right external iliac artery stenosis is not [...] visualized. Diffusely elevated Doppler velocities within the poarch external iliac artery without obvious focal stenosis. [...] definitely visualized. Diffusely elevatedDoppler velocities within the poarch external iliac artery without obviousfocal stenosis. LEFT: [...] stenoses on theleft. 2. The previously seen poarch right external iliac artery stenosis is notdefinitely identified today. us Jayjay Pak P.A.-C. IMG US PROCEDURES Final Result * ECG 12 Lead (03/05/2024 11:03 AM CDT) Ventricular Rate ECG/Min 90 BPM MUSE NV Interval 152 ms MUSE QRSD Interval 122 ms MUSE QT Interval 404 ms MUSE QTC Interval 494 ms MUSE P [place] 73 degrees MUSE R [place] -18 degrees MUSE T Wave [place] 33 degrees MUSE 03/05/2024 11:0 3 AM [...] documented as of this encounter Care Teams Geological Specialist Relationship Specialty Start Date End Date Elsewhere, Pcp PCP - General Family Medicine 01/29/20 documented as of this encounter
--- OUTSIDE RECORDS SUMMARY | 2024-04-24 10:04 | XMS_ITS | Encounter Summary ---
Author Organization [facility] Address [address] [place] [address] Care Team Providers Care Mold Sheet Cleaner Name Role Phone Elsewhere, Pcp Primary Care Provider Unavailabl e Encounter Details Date Type Department Care Team (Late st Contact Info) Description 08/19/2016 Historical Ophthalmology [facility] Chalo Holland Jr., M.D. [address] [place] [address] Social History Tobacco Use Types Packs/Day Years Used Date Smoking Tobacco: Every Day Sex and Gender Information Value Date Recorded Sex Assigned at Male 03/24/2021 8:13 PM CLINICAL ACADEMIC ALLERGIST Legal Sex Male 12:04 AM CLINICAL ACADEMIC ALLERGIST Gender Identity Male 08/31/2019 2:40 PM CDT [...] IOL OU CDM Reports - EYEGEN Id: [id number] Status: Fnl documented in this encounter Plan of Treatment Upcoming Encounters Date Type Department Care Team (Late st Contact Info) Description 05/10/2024 8:30 AM CLINICAL ACADEMIC ALLERGIST Appointment Department of Radiology, [facility], in [place], [place] [address] [place] [phone] Kemar Velásquez M.B.B.S. [address] [place] [phone] Discharge Disposition: Home or Self Care 05/10/2024 9:30 AM CLINICAL ACADEMIC ALLERGIST Appointment Department of Vascular Medicine in [place], [place] [address] [place] [phone] Kemar Velásquez M.B.B.S. [address] [place] [phone] documented as of this encounter Visit Diagnoses Not on filedocumented in this encounter Additional Health Concerns Infection Onset Date Last Indicated Resolved Time COVID19 Pending 05/08/2020 05/08/2020 05/08/2020 2 :44 PM CLINICAL ACADEMIC ALLERGIST Assessment Noted Time PHQ-9 Depression Total Score: 7 08/17/19 17 9:01 AM CDT documented as of this encounter Care Teams Mold Sheet Cleaner Relationship Specialty Start Date End Date Elsewhere, Pcp PCP - General Family Medicine 01/29/20 documented as of this encounter
--- OUTSIDE RECORDS SUMMARY | 2024-04-24 10:04 | XMS_ITS | Encounter Summary ---
Author Organization [facility] Address [address] [place] [address] Care Team Providers Care Drilling Fluids Specialist Name Role Phone Elsewhere, Pcp Primary Care Provider Unavailabl e Reason for Visit * Outpatient (Routine) - Closed Specialty Diagnoses / Procedures Referred By Robi hong Referred To Contact Diagnoses Follow Up Examination Status Post Surgery Peripheral Arterial Disease (HCC) Procedures Lower Extremity Arterial (MIMI) - TCPO2 (Wound) Lower Extremity Arterial (MIMI) - Exercise (Claudication) Jayjay Pak P.A.-C. [address] [place] [phone] Phone: tel: fax: [facility] Referral ID Status Reason Start Date Expiration Date Visits Re quested Visits Authorized [id number] Closed 01/05/2024 01/04/2025 1 1 Encounter Details Date Type Department Care Team (Latest Contact Info) Description 03/05/2024 7:30 AM CDT - 03/05/2024 10:59 AM CDT Hospital Encounter Department of Vascular Medicine in [place], [place] [address] [place] [address] Jayjay Pak P.A.-C. [address] [place] [phone] Follow Up Examination Status Post Surgery; Peripheral [...] How often do you attend sabianism or pentecostal serv ices? Never 03/24/2021 Do [...] Answer Date Recorded PHQ-2 Score 0 10/20/2018 [facility] [place] of Occupat ional Health - Occupational Stress [...] Assigned at Male 03/24/2021 8:13 PM LIVESTOCK BUYER Legal Sex Male 12:04 AM LIVESTOCK BUYER Gender Identity Male 08/31/2019 2:40 PM CDT [...] st Contact Info) Description 05/10/2024 8:30 AM LIVESTOCK BUYER Appointment Department of Radiology, [facility] in [place], [place] [address] [place] [phone] Kemar Velásquez M.B.B.S. [address] [place] [phone] Discharge Disposition: Home or Self Care 05/10/2024 9:30 AM LIVESTOCK BUYER Appointment Department of Vascular Medicine in [place], [place] [address] [place] [phone] Kemar Velásquez M.B.B.S. [address] [place] [phone] documented as of this encounter Procedures Procedure [...] arterial occlusive disease is severe, with worsening [id number] bilaterally. Jayjay Pak P.A.-C. CV VASCULAR PROCEDURES F inal Result documented in this encounter Visit Diagnoses Diagnosis Follow Up Examination Status Post Surgery Peripheral Arterial Disease (HCC) documented in this encounter Additional Health Concerns Assessment Noted Time PHQ-9 Depression Total Score: 3 01/04/20 18 10:38 AM CDT documented as of this encounter Care Teams Drilling Fluids Specialist Relationship Specialty Start Date End Date Elsewhere, Pcp PCP - General Family Medicine 01/29/20 documented as of this encounter
--- OUTSIDE RECORDS SUMMARY | 2024-04-24 10:04 | XMS_ITS | Encounter Summary ---
Author Organization [facility] Address [address] [place] [address] Care Team Providers Care Residue Furnace Operator Name Role Phone Elsewhere, Pcp Primary Care Provider Unavailabl e Reason for Visit * Reason Comments Med Refill Encounter Details Date Type Department Care Team (Late st Contact Info) Description 01/14/2024 Refill Division of Nephrology and Hypertension in [place], [place] [address] [place] [address] Onesimo Rodriguez M.D. Med Refill Social History [...] often do you attend jehovah's witness or shinto serv ices? Never 03/24/2021 Do [...] Assigned at Male 03/24/2021 8:13 PM SENIOR RECRUITMENT CONSULTANT Legal Sex Male 12:04 AM SENIOR RECRUITMENT CONSULTANT Gender Identity Male 08/31/2019 2:40 PM CDT Sexual Orientation Straight 08/31/2019 2: 40 PM CDT documented as of this encounter Miscellaneous Notes * Telephone Encounter - Haseeb Menon Jr., D.O. - 01/19/2024 12:51 PM CDT He is on PD via [employer] [place], I care for him and he does not take these any longer. RCA documented in this encounter Plan of Treatment Upcoming Encounters Date Type Department Care Team (Late st Contact Info) Description 05/10/2024 8:30 AM SENIOR RECRUITMENT CONSULTANT Appointment Department of Radiology, [facility], in [place], [place] [address] [place] [address] Kemar Velásquez M.B.B.S. [address] [place] [address] Discharge Disposition: Home or Self Care 05/10/2024 9:30 AM SENIOR RECRUITMENT CONSULTANT Appointment Department of Vascular Medicine in [place], [place] [address] [place] [address] Kemar Velásquez M.B.B.S. [address] [place] [address] documented as of this encounter Visit Diagnoses Not on filedocumented in this encounter Additional Health Concerns Assessment Noted Time PHQ-9 Depression Total Score: 3 01/04/20 18 10:38 AM CDT documented as of this encounter Care Teams Residue Furnace Operator Relationship Specialty Start Date End Date Elsewhere, Pcp PCP - General Family Medicine 01/29/20 documented as of this encounter
== END 2024-04-24 09:58 | disposition home or self-care (01) ==
LOC: WOUND 09:58
PROVIDERS: PCP Family Medicine; Visit Provider Nurse Practitioner Family
DX: E11.621 Type 2 diabetes mellitus with foot ulcer (principal); L97.518 Non-pressure chronic ulcer of other part of right foot with other specified severity; Z96.41 Presence of insulin pump (external) (internal)
CPT/HCPCS: 11042

== ENCOUNTER 2024-05-01 09:37 | Outpatient (CLI) | payer MEDICARE, BC, SELFPAY | END 2024-05-01 09:38 | disposition home or self-care (01) | PROVIDERS: PCP Family Medicine; Visit Provider Nurse Practitioner Family | DX: E11.621 Type 2 diabetes mellitus with foot ulcer (principal); L97.518 Non-pressure chronic ulcer of other part of right foot with other specified severity; I89.0 Lymphedema, not elsewhere classified; E11.22 Type 2 diabetes mellitus with diabetic chronic kidney disease; N18.5 Chronic kidney disease, stage 5; Z96.41 Presence of insulin pump (external) (internal); Z99.2 Dependence on renal dialysis | CPT/HCPCS: 15275; Q4201 ==

== ENCOUNTER 2024-05-17 12:54 | Emergency (ER) | payer MEDICARE, BC, SELFPAY ==
--- NOTE | 2024-05-17 13:06 | CRLHL7_ITS ---
For Patients: As a result of the Cures Act, medical imaging exams and procedure reports are released immediately into your electronic medical record. You may view this report before your referring provider. If you have questions, please contact your health care provider. INDICATION: fall 1 week ago, back/r hip pain COMPARISON: MRI lumbar spine on May 04, 2022 TECHNIQUE: CT of the lumbar spine without contrast FINDINGS: No acute fracture or malalignment. Normal lumbar lordosis is maintained. There is no listhesis. Vertebral body heights are maintained. Mild multilevel intervertebral disc height loss and degenerative disc disease spanning T12-L5 with minimal associated degenerative endplate changes. Severe degenerative disc disease at L5-S1 with severe degenerative endplate changes. There is no acute spinal canal or neural foraminal stenosis. Mild multilevel circumferential disc bulge with varying degrees of osseous neural foraminal narrowing at L3-L4 and L4-L5, better appreciated on prior MR examination. Severe bilateral osseous neural foraminal narrowing at L5-S1. Multilevel facet arthropathy, most pronounced at L4-L5 and L5-S1. Osteoarthritic degenerative changes of the visualized bilateral sacroiliac joints. No suspicious osseous lesions. The soft tissues are without acute abnormality. Calcific atherosclerosis of the aortoiliac system and its branches. IMPRESSION: 1. No acute fracture or trauma-related malalignment. 2. Lumbar spondylosis as detailed above. Please note that all CT scans at this facility use dose modulation, iterative reconstruction, and/or weight-based dosing when appropriate to reduce radiation dose to as low as reasonably achievable. Dictated by Gustavo Stanton MD @ 05/17/2024 2:32:03 PM (Electronically Signed)
--- NOTE | 2024-05-17 13:06 | CRLHL7_ITS ---
For Patients: As a result of the Century Cures Act, medical imaging exams and procedure reports are released immediately into your electronic medical record. You may view this report before your referring provider. If you have questions, please contact your health care provider. INDICATION: Fall 2 weeks ago. Pain. COMPARISON: 03/23/2022 pelvic radiograph TECHNIQUE: Single view of the pelvis and two views of the right hip FINDINGS: There is a catheter in the right hemipelvis with the tip projecting over the right lateral/inferior sacral border. Vascular stents project over the left sacroiliac joint and the left lumbosacral junction. There are extensive vascular calcifications. There are mild degenerative changes of the hips and sacroiliac joints. No evident acute displaced fracture. IMPRESSION: No evident acute displaced fracture. Dictated by Fili Mullen MD @ 05/17/2024 1:34:54 PM (Electronically Signed)
[2024-05-17 13:08] VITALS: BP 124/49; PULSE 83; RESP 18; TEMP 36.4; O2SAT 94; BMI 27.2
--- NOTE | 2024-05-17 13:09 | ED.GENADULT ---
HPI - General Adult General Date Seen: 05/17/24 Chief complaint: Hip Injury/Pain Stated complaint: hip pain Time Seen by Provider: 05/17/24 12:59 History of Present Illness HPI narrative: Patient is a 74-year-old male here via EMS with his for evaluation of right hip pain. They tell me that a couple of weeks ago he had a fall, kind of aggravated his back and hip at that time. On May 03 he had stenting of lower extremity arteries at [place], they report that that has worked well in terms of perfusion and he is not seem to have any new symptoms or complications related to that. On , he had another fall landing on his right hip and has had increased pain since then. He notes that it has been difficult to weight bear due to pain and also feels like the leg sometimes gives out. He also has pain in his low back. He has been on oxycodone for chronic pain for greater than 10 years, it is a little unclear whether some of this is chronic but his feels that things are worse since this most recent fall. No reported head or neck injury. Related Data Home Medications ?Medication ?Instructions ?Recorded ?Confirmed ferrous sulfate 325 mg (65 mg 27 mg PO DAILY 05/19/22 05/17/24 iron) tablet aspirin 81 mg chewable tablet 81 mg PO QDAY 05/20/22 04/27/24 vitamin B comp no.3-folic acid 1 1 tab PO DAILY 07/29/23 05/17/24 mg-vit C 60 mg-biotin 300 mcg tablet ([facility]) calcium acetate 667 mg tablet 667 mg PO TID PRN 02/02/24 05/17/24 clopidogrel 75 mg tablet 75 mg PO DAILY 04/27/24 05/17/24 furosemide 40 mg tablet 20 mg PO BID 04/27/24 05/17/24 pantoprazole 40 mg tablet,delayed 40 mg PO QAM 04/27/24 05/17/24 release Previous Rx's ?Medication ?Instructions ?Recorded blood-glucose transmitter (Dexcom #1 ea 05/25/23 G6 Transmitter device) insulin aspart (niacinamide) See Rx Instructions subcut QDAY 06/02/23 (U-100) 100 unit/mL subcutaneous #100 mL solution (Fiasp U-100 Insulin) ergocalciferol (vitamin D2) 1,250 1,250 mcg PO QWEEK #12 caps 06/27/23 mcg (50,000 unit) capsule pen needle, diabetic 30 gauge x #100 ea 07/19/2309/28 (Pen Needle) carvedilol 25 mg tablet 12.5 mg (1/2 x 25 mg) PO BID #1 tab 08/12/23 blood-glucose meter,continuous #1 ea 10/19/23 (Dexcom G6 [employer] Counter Person) allopurinol 100 mg tablet 100 mg PO QDAY #90 tabs 12/02/23 duloxetine 30 mg capsule,delayed 30 mg PO QDAY #90 caps 02/24/24 release blood-glucose sensor (Dexcom G6 #3 ea 04/02/24 Sensor device) nortriptyline 50 mg capsule 100 mg (2 x 50 mg) PO HS #180 caps 04/27/24 oxycodone 10 mg tablet 10 mg PO Q8H PRN pain #90 tabs 04/27/24 ropinirole 1 mg tablet 1 mg PO BID #60 tabs 04/27/24 atorvastatin 20 mg tablet 20 mg PO HS #90 tabs 04/30/24 doxepin 25 mg capsule 25 mg PO BID #180 caps 04/30/24 minocycline 100 mg capsule 100 mg PO QDAY #90 caps 04/30/24 Allergies Allergy/AdvReac Type Severity Reaction Status Date / Time morphine Allergy Severe itching Verified 04/27/24 08:01 and swelling pregabalin Allergy Severe itching Verified 04/27/24 08:01 and swelling gabapentin Allergy Intermediate swelling Verified 04/27/24 08:01 Dorbmgv-DFN-NsV Reductase Allergy Mild Unknown Verified 04/27/24 08:01 Inhibitor Review of Systems Status of ROS: Reports: 6 or more systems reviewed and unremarkable except as noted in History and below [facility] Medical History Restless leg syndrome ?G25.81 - Restless legs syndrome (ICD-10) Bacteremia due to Enterococcus ?R78.81 - Bacteremia (ICD-10) ?B95.2 - Enterococcus as the cause of diseases classified elsewhere (ICD-10) 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 space of L2-L5 lumbar spine ?G06.1 - Intraspinal abscess and granuloma (ICD-10) Diabetic foot ulcer ?E11.621 - Type 2 diabetes mellitus with foot ulcer (ICD-10) ?L97.509 - Non-pressure chronic ulcer of other part of unspecified foot with unspecified severity (ICD-10) Stage 5 chronic kidney disease ?N18.5 - Chronic kidney disease, stage 5 (ICD-10) Type 2 diabetes mellitus, with long-term current use of insulin ?E11.9 - Type 2 diabetes mellitus without complications (ICD-10) ?Z79.4 - halfway (current) use of insulin (ICD-10) Mixed hyperlipidemia ?E78.2 - Mixed hyperlipidemia (ICD-10) Primary hypertension ?I10 - Essential (primary) hypertension (ICD-10) UTI (urinary tract infection) ?N39.0 - Urinary tract infection, site not specified (ICD-10) Unsteady gait ?R26.81 - Unsteadiness on feet (ICD-10) Cognitive impairment ?R41.89 - Other symptoms and signs involving cognitive functions and awareness (ICD-10) Leg pain ?M79.606 - Pain in leg, unspecified (ICD-10) Lumbar radiculopathy ?M54.16 - Radiculopathy, lumbar region (ICD-10) Abscess of skin ?L02.91 - Cutaneous abscess, unspecified (ICD-10) Chronic pruritus ?L29.9 - Pruritus, unspecified (ICD-10) Vitamin D deficiency ?E55.9 - Vitamin D deficiency, unspecified (ICD-10) Transient ischemic attack (2009) ?G45.9 - Transient cerebral ischemic attack, unspecified (ICD-10) Spinal stenosis of lumbar region ?M48.061 - Spinal stenosis, lumbar region without neurogenic claudication (ICD-10) Peripheral arterial disease ?I73.9 - Peripheral vascular disease, unspecified (ICD-10) Major depressive disorder with single episode (09/18/07) ?F32.9 - Major depressive disorder, single episode, unspecified (ICD-10) Gout ?M10.9 - Gout, unspecified (ICD-10) Gastroesophageal reflux disease ?K21.9 - Gastro-esophageal reflux disease without esophagitis (ICD-10) Erectile dysfunction (04/23/06) ?N52.9 - Male erectile dysfunction, unspecified (ICD-10) Diabetic neuropathy ?E11.40 - Type 2 diabetes mellitus with diabetic neuropathy, unspecified (ICD-10) Diabetic gastroparesis (04/20/09) ?E11.43 - Type 2 diabetes mellitus with diabetic autonomic (poly)neuropathy (ICD-10) ?K31.84 - Gastroparesis (ICD-10) Chronic pain ?G89.29 - Other chronic pain (ICD-10) Surgical History History of repair of right rotator cuff (2004) ?Z98.890 - Other specified postprocedural states (ICD-10) History of tonsillectomy ?Z90.89 - Acquired absence of other organs (ICD-10) History of carpal tunnel release ?Z98.890 - Other specified postprocedural states (ICD-10) Status post insertion of iliac artery stent ?Z95.828 - Presence of other vascular implants and grafts (ICD-10) Status post epidural steroid injection (07/06/18) ?Z92.241 - Personal history of systemic steroid therapy (ICD-10) Status post cataract extraction and insertion of intraocular lens (2007) ?Z98.49 - Cataract extraction status, unspecified eye (ICD-10) ?Z96.1 - Presence of intraocular lens (ICD-10) History of angioplasty of peripheral vessel (05/27/17) ?Z98.62 - Peripheral vascular angioplasty status (ICD-10) History of amputation of left great toe (05/31/17) ?Z89.412 - Acquired absence of left great toe (ICD-10) Family History Sister Breast cancer, Onset Age: 70 Diabetes Brother Diabetes Stroke, Onset Age: 69 Heart disease, Onset Age: 69 Social History Narrative: -[employer], retired, 4 kids No EtOH What is your current living situation?: I presently have a place to live Problems where you live: no known problems In the past 12 months, utilities in danger of being shut off: no In past 12 months, lack of transportation kept you from medical appts, meetings, work, or getting things needed for daily living: no In the past 12 mos, have been you worried that your food would run out before you had money to buy more?: never true In the past 12 mos, the food you bought just didn't last and you didn't have money to buy more?: never true Highest level of school completed/degree received: some college, no degree Smoking Status: Former smoker What tobacco products do you use: cigarettes Smoking packs per day: 0.5 Smoking cigarettes per day: 10.0 Years smoked: 40 Smoking pack-years: 20.00 Smoking quit date/years: <= 15 years ago Do you use any of these nicotine containing products: None Second hand tobacco smoke exposure: No How often do you have a drink containing alcohol: monthly or less Alcohol type details: rare AUDIT-C Alcohol total score: 1 Non-prescribed substance use: denies use Caffeine: Yes (pot of coffee daily) Are you now , , , , never or living with a partner: Social isolation score (0-1 are the most socially isolated patients): 1 How often does anyone, including family, friends and others, physically hurt you: never How often does anyone, including family, friends and others, insult or talk down to you: never How often does anyone, including family, friends and others, threaten you with harm: never How often does anyone, including family, friends and others, scream or curse at you: never service: No Exam Narrative: Exam Narrative: Vital signs reviewed In general, alert, nontoxic elderly male. Head: Normocephalic, atraumatic. Eyes: Sclera clear. Pupils equal and reactive. ENT: Mucous membranes moist. Neck: Supple without adenopathy. Heart: Regular rate and rhythm without murmur. Lungs: Clear. No increased work of breathing, crackles or wheezes. Abdomen: Soft, protuberant, nontender to palpation. Extremities: I am not able to palpate pulses but he does have reasonable perfusion to his legs. He has good range of motion of the right hip, does not have any identifiable tenderness or bruising. Neurologic: Alert, conversant. Speech fluent, face symmetric. Moves all extremities equally. Skin: Warm, dry well perfused. Affect: Normal. Const: Vital Signs, click to edit/add: Vital Signs - 24 hr 05/17/24 13:08 Temperature 97.6 F Pulse Rate [Pulse Oximeter] 83 Respiratory Rate 18 Blood Pressure [Ri ght Upper Arm] 124/49 L Pulse Oximetry 94 Oxygen Delivery Me thod Room Air Documenting provider has reviewed patient's vital signs: yes Course Course ED Course: Exam is a little bit unrevealing, but says he has not been able to get around and she had to call for help to get him up when he fell. Will order an x-ray of the right hip, CT of the lumbar spine. If right hip x-ray is negative would proceed with CT through the pelvis and right hip. X-rays of the right hip by my review were negative. Final radiology review likewise negative. I reviewed the CTs of the right hip as well as the lumbar spine, I did not see any acute bony injury. They were read as negative for acute findings by Radiology as well. Reports linked below. Findings discussed with patient and his . She was having difficulty managing him today as she was not able to get him due to pain. Discussed with them that our options at this point or to try to maximize pain control at home and see how he does, or to admit with anticipating placement in a care facility for rehab. She was leaning more toward the latter, he was leaning more toward the former. Ultimately we decided to try giving him some pain medication here, will have PT evaluate and see how he does. He typically takes 10 mg of oxycodone a couple of times a day, will try giving him 20 mg here and see how he does. PT evaluated patient. He was ambulatory without assistance with a 2 wheeled walker, apparently has a 4 wheeled walker at home which is less stable for him. Physical therapy was able to provide a more appropriate walker for him at this time, apparently the 1 he uses was handed down from a relative so we are getting him fitted with 1 that will be better for him. Given that he is able to get around independently with his walker, there does not seem to be a clear indication for admission at this time. He does require 1 person assist to get up but his says that is usual for him. They are comfortable giving it a try at home. If she really feels that she cannot manage, discussed that placement in a rehab facility would be the next step. Return if not able to manage at home. Otherwise, if he needs to take an extra oxycodone if pain is more severe here in there, I think that is reasonable to do. Discussed that I do not want him to take a double dose twice a day every day. Follow-up with primary care for ongoing concerns. Return to the ER as outlined above. Vital Signs Vital signs: Initial Vital Signs Temperature 97.6 F 05/17/24 13:08 Temperature Source Temporal Artery Scan 05/17/24 13:08 Pulse Rate 83 05/17/24 13:08 Respiratory Rate 18 05/17/24 13:08 Blood Pressure 124/49 L 05/17/24 13:08 Blood Pressure Mean 74 05/17/24 13:08 Pulse Oximetry 94 05/17/24 13:08 Oxygen Delivery Method Room Air 05/17/24 13:08 Vital Signs Temperature 97.6 F 05/17/24 13:08 Pulse Rate 83 05/17/24 13:08 Respiratory Rate 18 05/17/24 13:08 Blood Pressure 124/49 L 05/17/24 13:08 Pulse Oximetry 94 05/17/24 13:08 Oxygen Delivery Method Room Air 05/17/24 13:08 Temperature 97.6 F 05/17/24 13:08 Pulse Rate 83 05/17/24 13:08 Respiratory Rate 18 05/17/24 13:08 Blood Pressure 124/49 L 05/17/24 13:08 Pulse Oximetry 94 05/17/24 13:08 Oxygen Delivery Method Room Air 05/17/24 13:08 Medications Administered Medications: Discontinued Medications Generic Name Dose Route Start Last Admin Trade Name Freq PRN Reason Stop Dose Admin Morphine Sulfate 12 mg 05/17/24 14:53 05/17/24 15:13 Morphine 4 Mg/Ml Inj IM 05/17/24 14:54 Not Given ONCE ONE Medical Decision Making Imaging Data Right hip CT: Attestation: I have reviewed the pertinent imaging results. Radiologist's impression: document embedded [address] [address] Diagnostic Imaging Report Patient: Onesimo Walton MR#: [id number] : 1950 Acct:[id number] Loc: ED Service Date: 05/17/[address]: Ordering Physician: Stacy Melendez M.D. Date of Service: 05/17/24 Procedure(s): XR hip RT min 2V Accession Number(s): [id number] cc: Stacy Melendez M.D.; Rudy Riddle M.D.~ For Patients: As a result of the Cures Act, medical imaging exams and procedure reports are released immediately into your electronic medical record. You may view this report before your referring provider. If you have questions, please contact your health care provider. INDICATION: Fall 2 weeks ago. Pain. COMPARISON: 03/23/2022 pelvic radiograph TECHNIQUE: Single view of the pelvis and two views of the right hip FINDINGS: There is a catheter in the right hemipelvis with the tip projecting over the right lateral/inferior sacral border. Vascular stents project over the left sacroiliac joint and the left lumbosacral junction. There are extensive vascular calcifications. There are mild degenerative changes of the hips and sacroiliac joints. No evident acute displaced fracture. IMPRESSION: No evident acute displaced fracture. Dictated by Fili Mullen MD @ 05/17/2024 1:34:54 PM Right hip x-ray: Attestation: I have reviewed the pertinent imaging results. Radiologist's impression: Patient: ONESIMO WALTON Facility: [facility] Site . Site : 1950 Study: XRay-Hip Right -05/17/2024 1:31:41 PM Ordering Physician: Al Kumar Final Report: INDICATION: Fall 2 weeks ago. Pain. COMPARISON: 03/23/2022 pelvic radiograph TECHNIQUE: Single view of the pelvis and two views of the right hip FINDINGS: There is a catheter in the right hemipelvis with the tip projecting over the right lateral/inferior sacral border. Vascular stents project over the left sacroiliac joint and the left lumbosacral junction. There are extensive vascular calcifications. There are mild degenerative changes of the hips and sacroiliac joints. No evident acute displaced fracture. IMPRESSION: No evident acute displaced fracture. Lumbar spine CT: Attestation: I have reviewed the pertinent imaging results. Radiologist's impression: Patient: Onesimo Walton MR#: [id number] : 1950 Acct:[id number] Loc: ED Service Date: 05/17/[address]: Ordering Physician: Stacy Melendez M.D. Date of Service: 05/17/24 Procedure(s): CT lumbar spine wo con Accession Number(s): [id number] cc: Stacy Melendez M.D.; Rudy Riddle M.D.~ For Patients: As a result of the Cures Act, medical imaging exams and procedure reports are released immediately into your electronic medical record. You may view this report before your referring provider. If you have questions, please contact your health care provider. INDICATION: fall 1 week ago, back/r hip pain COMPARISON: MRI lumbar spine on May 04, 2022 TECHNIQUE: CT of the lumbar spine without contrast FINDINGS: No acute fracture or malalignment. Normal lumbar lordosis is maintained. There is no listhesis. Vertebral body heights are maintained. Mild multilevel intervertebral disc height loss and degenerative disc disease spanning T12-L5 with minimal associated degenerative endplate changes. Severe degenerative disc disease at L5-S1 with severe degenerative endplate changes. There is no acute spinal canal or neural foraminal stenosis. Mild multilevel circumferential disc bulge with varying degrees of osseous neural foraminal narrowing at L3-L4 and L4-L5, better appreciated on prior MR examination. Severe bilateral osseous neural foraminal narrowing at L5-S1. Multilevel facet arthropathy, most pronounced at L4-L5 and L5-S1. Osteoarthritic degenerative changes of the visualized bilateral sacroiliac joints. No suspicious osseous lesions. The soft tissues are without acute abnormality. Calcific atherosclerosis of the aortoiliac system and its branches. IMPRESSION: 1. No acute fracture or trauma-related malalignment. 2. Lumbar spondylosis as detailed above. Please note that all CT scans at this facility use dose modulation, iterative reconstruction, and/or weight-based dosing when appropriate to reduce radiation dose to as low as reasonably achievable. Dictated by Gustavo Stanton MD @ 05/17/2024 2:32:03 PM Discharge Plan Discharge Clinical Impression: Acute pain of right hip, Acute on chronic back pain Patient Disposition: Home, Self-Care Condition: Improved Instructions: Chronic Back Pain (DC), Hip Pain (ED) Additional Instructions: Your imaging today does not show any evidence of broken bones or other acute problems. For now, we will try sending her home, you can continue to use her oxycodone and if you have times where pain is severe and uncontrolled on your usual dose, you can take an extra tablet. Please do this only as a last resort for uncontrolled pain. If you find you are not able to manage at home safely, return to the emergency department. Otherwise, see primary care for ongoing concerns. Prescriptions: No Action [facility] Rx 1-60-300 mg-mg-mcg tablet 1 tab PO DAILY calcium acetate 667 mg tablet 667 mg PO TID PRN carvedilol 25 mg tablet 12.5 mg PO BID Qty: 1 0RF ferrous sulfate 325 mg (65 mg iron) tablet 27 mg PO DAILY Rx Instructions: Take 27 mg by mouth daily. States taking 27 mg daily aspirin 81 mg tablet,chewable 81 mg PO QDAY furosemide 40 mg tablet 20 mg PO BID Fiasp U-100 Insulin 100 unit/mL solution See Rx Instructions subcut QDAY MDD 100 Qty: 100 3RF Rx Instructions: subcutaneously every day; Uses about 80 units daily per insulin pump clopidogrel 75 mg tablet 75 mg PO DAILY pantoprazole 40 mg tablet,delayed release (DR/EC) 40 mg PO QAM nortriptyline 50 mg capsule 100 mg PO HS Qty: 180 1RF ropinirole 1 mg tablet 1 mg PO BID Qty: 60 5RF (DME) Dexcom G6 Transmitter Device See Rx Instructions .Route Qty: 1 5RF Rx Instructions: As directed ergocalciferol (vitamin D2) 1,250 mcg (50,000 unit) capsule 1,250 mcg PO QWEEK Qty: 12 3RF (DME) pen needle, diabetic [Pen Needle] 30 gauge x 5/16 needle See Rx Instructions .ROUTE .MEDSUPPLY Qty: 100 3RF Rx Instructions: Injects 4 times daily (DME) Dexcom G6 [employer] Counter Person Misc See Rx Instructions .Route Qty: 1 0RF Rx Instructions: As directed allopurinol 100 mg tablet 100 mg PO QDAY Qty: 90 3RF duloxetine 30 mg capsule,delayed release(DR/EC) 30 mg PO QDAY Qty: 90 1RF (DME) Dexcom G6 Sensor Device See Rx Instructions .ROUTE .COMPLEX Qty: 3 5RF Dose Instruction: CHANGE EVERY 10 DAYS Rx Instructions: CHANGE EVERY 10 DAYS oxycodone 10 mg tablet 10 mg PO Q8H PRN (Reason: pain) Qty: 90 0RF atorvastatin 20 mg tablet 20 mg PO HS Qty: 90 2RF minocycline 100 mg capsule 100 mg PO QDAY Qty: 90 1RF doxepin 25 mg capsule 25 mg PO BID Qty: 180 1RF Follow Up/Referrals: Rudy Riddle MD [Primary Care Provider] - Stand Alone Forms: [employer] Info Instructions
--- NOTE | 2024-05-17 13:31 | CRLHL7_ITS ---
For Patients: As a result of the Century Cures Act, medical imaging exams and procedure reports are released immediately into your electronic medical record. You may view this report before your referring provider. If you have questions, please contact your health care provider. EXAM: CT OF THE RIGHT HIP, WITHOUT CONTRAST CLINICAL INDICATION: Pain following fall. Negative x-ray. COMPARISON STUDIES: 05/17/2024 radiographs. 05/02/2022 lumbar MRI. TECHNICAL: Non-contrast CT of the pelvis with axial images. Sagittal oblique and coronal oblique reformatted images of the right hip created. FINDINGS: RIGHT HIP: No joint effusion or loose body. Mild narrowing and hypertrophic changes. OSSEOUS STRUCTURES: Osteopenia. No acute fractures. No worrisome osseous lesion. No evidence for chronic avascular necrosis. OTHER JOINT SPACES: Left Hip: No joint effusion. SI Joints: Moderate degenerative changes in the SI joints. Lumbar Spine: Advanced degenerative changes in the lumbar spine. MUSCLES AND TENDONS: No intramuscular mass or hematoma. No muscle atrophy. No retracted tendon tear. SOFT TISSUES: Subcutaneous edema in the hips. No hematoma. INTRAPELVIC CONTENTS: Peritoneal catheter. Small fat containing umbilical hernia. No free fluid or hematoma. NEUROVASCULAR STRUCTURES: No abnormality of the neurovascular structures. IMPRESSION: 1. No acute fractures are evident. 2. Degenerative changes in the right hip, SI joints and lumbar spine. 3. Subcutaneous edema in the hips. 4. Peritoneal catheter. 5. Small fat containing inguinal hernia. Please note that all CT scans at this facility use dose modulation, iterative reconstruction, and/or weight-based dosing when appropriate to reduce radiation dose to as low as reasonably achievable. Dictated by Tee Rg MD @ 05/17/2024 2:22:33 PM (Electronically Signed)
[2024-05-17] MEDS: OXYCODONE 5 MG TABLET 20 MG PO (15:30)
== END 2024-05-17 15:49 | disposition home or self-care (01) ==
PROVIDERS: Emergency Provider Emergency Medicine; PCP Family Medicine
DX: M25.551 Pain in right hip (principal); M54.9 Dorsalgia, unspecified
CPT/HCPCS: 72131; 73502; 73700; 97161; 99284; A9270